=== PATIENT | male | born 1975 | race Caucasian/White ===

== ENCOUNTER → 2016-03-28 | Outpatient (CLI) | payer OTHER ==
[~2016-03-28] MED LIST: AMLO10TA2 PO; APR50 PO; ASPI81TA28 PO; ATOR10TA88 PO; CANA1TAB PO; CARV25TA2 PO; CHOL100010 PO; CHOL2000 PO; CLC/300 PO; DULA0.5I INJ; FRS/40 PO; GABA1CAP5 PO; GLC/500 PO; INSPMPHMLG SQ; INSU50IN3 SQ; LOSA100T26 PO; LOSA100T65 PO; LOSA50TA55 PO; RXC5 PO; SPIR1TAB72 PO
[2016-03-28 12:55] LABS: BLOOD UREA NITROGEN 16 mg/dl (7-18); BUN/CREATININE RATIO 22.7 (10-20); CARBON DIOXIDE 24 mmol/L (21-32); CHLORIDE 107 mmol/L (98-107); CREATININE 0.71 mg/dl (0.60-1.40); GLUCOSE 58 mg/dl (70-99); GLUCOSE,FASTING 58 mg/dl (70-99); PHOSPHORUS 2.9 mg/dl (2.5-4.9); POTASSIUM 4.2 mmol/L (3.5-5.1); SODIUM 141 mmol/L (136-145)
[2016-03-28 13:36] LABS: RATIO 22.1 mcg/mg (0-30.0)
== END | disposition home or self-care (01) ==
LOC: C.LABBFT 08:15
PROVIDERS: ATTEND Internal Medicine Endocrinology, Diabetes & Metabolism
DX: I10 Essential (primary) hypertension (principal); E11.9 Type 2 diabetes mellitus without complications; E55.9 Vitamin D deficiency, unspecified

== ENCOUNTER → 2016-04-06 | Outpatient (CLI) | payer OTHER ==
[~2016-04-06] VITALS: Ht 170.2 cm; Wt 172.5 kg
[2016-04-06 14:13] VITALS: BP 125/85; PULSE 102; Ht 170.2 cm; Wt 172.5 kg
== END | disposition home or self-care (01) ==
LOC: C.NEUR 14:11
PROVIDERS: ATTEND Internal Medicine Pulmonary Disease
DX: G47.33 Obstructive sleep apnea (adult) (pediatric) (principal)

== ENCOUNTER → 2016-05-25 | Outpatient (CLI) | payer OTHER ==
[~2016-05-25] MED LIST changes: +AMLO-114 PO; +ATOR-22 PO; +ATOR10TA82 PO; -ATOR10TA88 PO; +AZITTAB PO; +CYM/30 PO; +DULA0.5I SC; +ECON118C TOP; +ERGO500037 PO; +FLX10 PO; +HYDR100T12 PO; +HYDR100T3 PO; +INSU50IN SC; +LABE100T23 PO; -LOSA100T26 PO; +LOSA100T33 PO; +LOSA50TA36 PO; -LOSA50TA55 PO; +LPT/20 PO; +MELO15TA10 PO; +MELO15TA4 PO; +NYST80OI TOP; +OXYC1TAB3 PO; +PRED20TA PO; +ULT50 PO
[2016-05-25 17:57] LABS: URINE APPEARANCE CLEAR (CLEAR); URINE BILIRUBIN NEG (NEG); URINE COLOR YELLOW; URINE EPITHELIAL CELL AUTO >30 /lpf (0-5); URINE NITRITE NEG (NEG); URINE SPECIFIC GRAVITY 1.014 (1.000-1.030); UROBILINOGEN NEG (NEG)
[2016-05-25 18:20] LABS: BLOOD UREA NITROGEN 13 mg/dl (7-18); BUN/CREATININE RATIO 14.3 (10-20); CALCIUM 8.9 mg/dl (8.5-10.1); CARBON DIOXIDE 30 mmol/L (21-32); CHLORIDE 102 mmol/L (98-107); CREATININE 0.89 mg/dl (0.60-1.40); GLUCOSE 148 mg/dl (70-99); SODIUM 139 mmol/L (136-145)
[2016-05-25 18:23] LABS: MANUAL MICROSCOPIC REQUIRED? NO; REVIEW REQ? NO
== END | disposition home or self-care (01) ==
LOC: C.LABBFT 15:42
PROVIDERS: ATTEND Physician Assistant Medical
DX: R32 Unspecified urinary incontinence (principal); E11.9 Type 2 diabetes mellitus without complications

== ENCOUNTER → 2016-05-26 | Outpatient (CLI) | payer OTHER ==
[~2016-05-26] MED LIST changes: +GADAVIST IV PRN
--- NOTE | 2016-05-26 11:21 | DIAGNOSTIC IMAGING REPORT ---
BRAIN COMBO FOR ORBITS CLINICAL HISTORY: Right sided vision loss. COMPARISON STUDY: Head CT April 09, 2015 and MRI of the brain April 15, 2015. TECHNIQUE: Utilizing 1.5 Sruthi magnet and dedicated coil, multiplanar, multi echo imaging of the brain was performed pre and postcontrast ministration with thin cut imaging through the orbits. Injection of 16 cc of Gadavist IV was uneventful. FINDINGS: The exam is moderately compromised by motion artifact. There are no areas restricted diffusion. No acute intracranial hemorrhage, midline shift or mass effect is present. Brain volume is normal. Minimal cerebellar tonsillar ectopia is unchanged. A few small foci of white matter T2 hyperintensity are unchanged since MRI of May 25, 2014. There is no intracranial mass or pathologic in enhancement. The globes are intact. There is no orbital mass. Extraocular muscles are unremarkable. Evaluation of the optic nerves is suboptimal on this exam due to motion artifact. Several signal is maintained. There is a left maxillary sinus mucous retention cyst. IMPRESSION: 1. No acute intracranial findings. 2. No orbital abnormality identified although the optic nerves are suboptimally assessed due to to motion artifact. 3. No change in a few small white matter T2 hyperintense foci since MRI of May 25, 2014. These likely reflect the sequela of migraine headaches or minimal small vessel disease. The appearance is not strongly suggestive of demyelinating disease. Electronically signed by: Eyad Rosario M.D. 05/26/2016 11:19 AM Dictated Date/Time: 05/26/2016 11:12 AM
== END | disposition home or self-care (01) ==
LOC: C.MRI 09:30
PROVIDERS: ATTEND Internal Medicine
DX: H54.7 Unspecified visual loss (principal)

== ENCOUNTER 2016-07-04 22:50 | Emergency (ER) | payer OTHER ==
[~2016-07-04] VITALS: Ht 170.2 cm; Wt 163.2 kg
[~2016-07-04 22:50] MED LIST changes: -AMLO-114 PO; -ATOR-22 PO; -ATOR10TA82 PO; -AZITTAB PO; -CANA1TAB PO; -CHOL2000 PO; -CYM/30 PO; -DULA0.5I INJ; -DULA0.5I SC; -ECON118C TOP; -ERGO500037 PO; -FLX10 PO; -HYDR100T12 PO; -HYDR100T3 PO; -INSU50IN SC; -LABE100T23 PO; -LOSA100T33 PO; -LOSA100T65 PO; -LPT/20 PO; -MELO15TA10 PO; -MELO15TA4 PO; -NYST80OI TOP; -OXYC1TAB3 PO; -PRED20TA PO; -SPIR1TAB72 PO; -ULT50 PO
[2016-07-04 22:59] VITALS: TEMP 37.1; Ht 170.2 cm; Wt 163.2 kg
[2016-07-04] MEDS ORDERED: OXYCODONE IR HOME PACK PO ONE (23:30)
[2016-07-04] MEDS ORDERED: CHOL2000 PO (23:56)
[2016-07-05] MEDS ORDERED: CANA1TAB PO (00:02)
[2016-07-05] MEDS ORDERED: LOSA100T65 PO (00:02)
[2016-07-05] MEDS ORDERED: DULA0.5I INJ (00:04)
[2016-07-05] MEDS ORDERED: SPIR1TAB72 PO (00:06)
[2016-07-05] MEDS ORDERED: ATOR10TA82 PO (00:06)
[2016-07-05] MEDS ORDERED: LOSA100T33 PO (00:07)
[2016-07-05 00:37] VITALS: BP 129/71; PULSE 88; O2SAT 96
--- NOTE | 2016-07-05 03:55 | EMERGENCY ROOM VISIT NOTE ---
ED Visit Note First contact with patient: 23:15 CHIEF COMPLAINT: Toothache HISTORY OF PRESENT ILLNESS: This 40-year-old male patient presented to the emergency department with a progressive toothache for past few hours. The patient had several teeth removed by a dentist in [place] last week. The patient states that he was on antibiotics but completed the medication. He took his last oxycodone this evening, and now presents for left-sided mouth pain. The patient has a dentist follow-up appointment scheduled in 2 days. They rate their pain a 8/10 and the ibuprofen and Tylenol they have been taking has not relieved the pain. Denies facial swelling or fever. The patient denies any discharge from the mouth. REVIEW OF SYSTEMS: A 6 system review of systems was completed with positives and pertinent negatives listed in the HPI. ALLERGIES: See EMR MEDICATIONS: See EMR PMH: See EMR SOCIAL HISTORY: Lives locally PHYSICAL EXAM: Vitals are noted on the nurse's note and reviewed by myself. Vital signs stable. GENERAL: White male, in no acute distress, nondiaphoretic, well-developed well- nourished. Mouth: The left upper gumline is tender, without any discharge or signs of an abscess. Several teeth appear to have recently been removed. The remainder of the pharynx and tonsils are without erythema, edema, or exudate. The airway is patent. There is no facial swelling, cervical or submandibular lymphadenopathy. The patient appears uncomfortable and in pain. The patient has overall poor dental hygiene. EARS: External auditory canals clear, tympanic membranes pearly blake without erythema or effusion bilaterally. HEART: Regular rate and rhythm without murmur gallop or rub LUNG: Clear to auscultation bilateral ED COURSE: Physical exam and history were performed. Nursing notes and EMR were reviewed. The patient appears to have had several teeth removed and is now having pain. He states that he is out of his antibiotics, however he did bring his pill bottles with him and he has 4 days of clindamycin pills remaining. I'm unsure if the patient is taking his medication as prescribed, but he was instructed to continue taking this. The patient is not regularly seen for these complaints. I do not appreciate abscess or impending airway compromise. The patient will be given a home pack of OxyIR with instructions to keep his appointment in 2 days for his follow-up. The patient was otherwise invited back to the ER with any new, worsening, or concerning symptoms. 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 (2) ANXIETY STATE NOS Status: Chronic (3) Benign hypertension Status: Chronic (4) DEPRESSIVE DISORDER NEC Status: Chronic (5) Diabetes mellitus type 2 Status: Chronic (6) MRSA Status: Resolved (7) TOBACCO USE DISORDER Status: Chronic (8) uvulectomy Status: Resolved Current/Historical Medications Scheduled Amlodipine Besylate (Norvasc), 10 MG PO DAILY Aspirin (Aspirin Ec), 81 MG PO DAILY Atorvastatin (Lipitor), 10 MG PO DAILY Canagliflozin (Invokana), 100 MG PO DAILY Carvedilol (Coreg), 25 MG PO BID Cholecalciferol (Vitamin D3), 4,000 UNIT PO DAILY Clindamycin HCl (Clindamycin HCl), 300 MG PO Q6 Dulaglutide (Trulicity), 1 DOSE INJ WK Furosemide (Lasix), 40 MG PO DAILY Gabapentin (Neurontin), 400 MG PO TID Hctz/Spironolactone (Spironolactone/Hydrochlor 25-25 mg), 1 TAB PO BID Insulin Lispro Protamine & Lis (Humalog Mix 50/50 Kwikpen), 110 UNITS SQ BID Losartan Potassium (Cozaar), 100 MG PO DAILY Losartan Potassium & Hydrochlo (Losartan Potassium/Hydroc), 1 TAB PO BID Metformin Hcl (Glucophage), 1,000 MG PO BIDM Scheduled PRN Oxycodone HCl (Oxycodone HCl), 5 MG PO Q4H PRN for Pain Allergies Coded Allergies: Ceftriaxone (Verified Allergy, Severe, SHORTNESS OF BREATH, 07/04/16) Lidocaine (Verified Allergy, Severe, SHORTNESS OF BREATH, diaphoretic, hives, 07/04/16) pt unable to give further information on when reaction occured Procaine (Verified Allergy, Severe, SHORTNESS OF BREATH, diaphoretic, hives, 07/04/16) pt unable to give further information on when reaction occured Lisinopril (Verified Allergy, Intermediate, HIVES, 07/04/16) Albuterol (Verified Allergy, Mild, proair "trouble taking breaths", ) Amoxicillin (Unverified Allergy, Unknown, ., 07/04/16) Clavulanic Acid (Unverified Allergy, Unknown, ., 07/04/16) Acetaminophen (Verified Adverse Reaction, Unknown, NAUSEA, 07/04/16) Vital Signs Date Time Temp Pulse Resp B/P Pulse Ox O2 Delivery O2 Flow Rate FiO2 07/05/16 00:37 88 18 129/71 96 07/04/16 22:59 37.1 107 18 126/85 94 Room Air Medications Administered Medications (Trade) Dose Ordered Sig/Faby Route Start Time Stop Time Status Last Admin Dose Admin Oxycodone HCl (Roxicodone Immediate Rel 5MG Home Pack) 1 homepack UD ONCE PO 07/04/16 23:30 07/04/16 23:31 DC 07/05/16 00:33 1 HOMEPACK Departure Information Impression Primary Impression: Pain, dental Dispostion Home / Self-Care Condition GOOD Forms HOME CARE DOCUMENTATION FORM, IMPORTANT VISIT INFORMATION Patient Instructions My [facility] Additional Instructions You were seen and evaluated today on an emergency basis only. This is not a substitute for, or an effort to provide, complete comprehensive medical care. It is not possible to recognize and treat all injuries or illnesses in a single emergency department visit. For this reason it is recommended that you followup with your dentist as scheduled on Sunday for ongoing care and evaluation. Continue clindamycin as previously instructed. Oxycodone (OxyIR) 5mg (homepack): Take ONE pill every SIX hours for breakthrough pain. Avoid alcohol, operating machinery or dangerous equipment, working on ladders or roofs, DRIVING, or situations where being under the influence may be dangerous. It is recommended to use an [id number] stool softener such as Colace, 100mg twice daily while taking this medication to avoid constipation. You are welcome to return to the emergency department anytime with new, worsening, or concerning symptoms.
== END 2016-07-05 00:37 | disposition home or self-care (01) ==
LOC: EDBD 22:50 → C.EDB 22:51
DX: K08.89 Other specified disorders of teeth and supporting structures (principal); F41.9 Anxiety disorder, unspecified; F43.21 Adjustment disorder with depressed mood; I10 Essential (primary) hypertension; E11.9 Type 2 diabetes mellitus without complications; Z72.0 Tobacco use; Z79.82 Long term (current) use of aspirin; Z79.899 Other long term (current) drug therapy

== ENCOUNTER → 2016-07-04 | Outpatient (CLI) | payer OTHER ==
[~2016-07-04] MED LIST changes: -GADAVIST IV PRN
[2016-07-04 17:28] LABS: BLOOD UREA NITROGEN 16 mg/dl (7-18); BUN/CREATININE RATIO 13.7 (10-20); CALCIUM 8.9 mg/dl (8.5-10.1); CARBON DIOXIDE 28 mmol/L (21-32); CHLORIDE 102 mmol/L (98-107); GLUCOSE 93 mg/dl (70-99); MAGNESIUM 2.1 mg/dl (1.8-2.4); POTASSIUM 3.6 mmol/L (3.5-5.1); SODIUM 139 mmol/L (136-145)
[2016-07-04 17:29] LABS: PHOSPHORUS 3.4 mg/dl (2.5-4.9)
[2016-07-05 06:21] LABS: ESTIMATED AVERAGE GLUCOSE 169 mg/dl; HA1C FLAG Normal (Normal)
== END | disposition home or self-care (01) ==
LOC: C.LAB1850 15:28
PROVIDERS: ATTEND Internal Medicine Nephrology
DX: I10 Essential (primary) hypertension (principal); E11.9 Type 2 diabetes mellitus without complications; E55.9 Vitamin D deficiency, unspecified

== ENCOUNTER 2016-07-16 18:11 | Emergency (ER) | payer OTHER ==
[~2016-07-16 18:11] MED LIST changes: -APR50 PO; +ATOR10TA82 PO; +CANA1TAB PO; -CHOL100010 PO; +CHOL2000 PO; +DULA0.5I INJ; -INSPMPHMLG SQ; +LOSA100T33 PO; +LOSA100T65 PO; -LOSA50TA36 PO; +SPIR1TAB72 PO
[2016-07-16 18:17] VITALS: Ht 170.2 cm
[2016-07-16] MEDS ORDERED: SODIUM CHLORIDE 0.9% 1000ML 500 ML IV STA (18:25)
[2016-07-16 18:42] VITALS: O2SAT 96
[2016-07-16 18:59] LABS: HEMATOCRIT 36.3 % (42-52); MEAN CELL VOLUME 86.6 fL (80-100); MEAN CORPUSCULAR HEMOGLOBIN 29.4 pg (25-34); MEAN CORPUSCULAR HGB CONC 33.9 g/dl (32-36); MEAN PLATELET VOLUME 9.5 fL (7.4-10.4); PLATELET COUNT 190 K/uL (130-400); RED BLOOD COUNT 4.19 M/uL (4.7-6.1); WHITE BLOOD COUNT 8.65 K/uL (4.8-10.8)
--- NOTE | 2016-07-16 19:13 | EMERGENCY ROOM VISIT NOTE ---
History Report prepared by Carisa: Alisha Daugherty Under the Supervision of: Dr. Abhilash Fuentes M.D. 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 The patient states that his chest pain goes across his mid chest and currently rates the pain as a 9/10 in severity. The patient states that his pain is worsening when he experiences shortness of breath. The patient states that today he was also having worsening shortness of breath and was lightheaded which was worsened with exertion. The patient states that today he was lying down in bed on his BiPAP machine and states he was still having shortness of breath and was unable to get comfortable. He states that due to his symptoms he has been unable to sleep well over the last few nights. The patient states that he had dental surgery on June 29 where 7 teeth were extracted and states he is still taking antibiotics and ibuprofen 800 mg. The patient denies any falling or twisting recently. He states he has no history of blood clots in lungs or extremities or history of a heart attack. The patient states that he is experiencing a "smell like sewage in the mouth" and sinus drainage which is causing him to feel ill. The patient states that he currently takes aspirin but denies taking any other blood thinners. 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 Review of Systems See HPI for pertinent positives & negatives. A total of 10 systems reviewed and were otherwise negative. Past Medical & Surgical Medical Problems: (1) accelerted HTN, obesity, DM (2) ADJUSTMENT DISORDER WITH DEPRESSED MOOD (3) ANXIETY STATE NOS (4) Benign hypertension (5) DEPRESSIVE DISORDER NEC (6) Diabetes mellitus type 2 (7) Diabetic peripheral neuropathy associated with type 2 diabetes mellitus (8) Loss of sensation (9) Morbid obesity with body mass index of 50.0-59.9 in adult (10) MRSA (11) Resistant hypertension (12) TOBACCO USE DISORDER (13) uvulectomy Social History Problems: (1) Learning disability Family History Diabetes mellitus FHx: asthma Social History Smoking Status: Former Smoker Alcohol Use: none Drug Use: none Marital Status: Housing Status: lives with family Occupation Status: disabled Current/Historical Medications Scheduled Amlodipine Besylate (Norvasc), 10 MG PO DAILY Aspirin (Aspirin Ec), 81 MG PO DAILY Atorvastatin (Lipitor), 10 MG PO DAILY Canagliflozin (Invokana), 100 MG PO DAILY Carvedilol (Coreg), 25 MG PO BID Cholecalciferol (Vitamin D3), 4,000 UNIT PO DAILY Dulaglutide (Trulicity), 1 DOSE INJ WK Furosemide (Lasix), 40 MG PO DAILY Gabapentin (Neurontin), 400 MG PO TID Hctz/Spironolactone (Spironolactone/Hydrochlor 25-25 mg), 1 TAB PO BID Insulin Lispro Protamine & Lis (Humalog Mix 50/50 Kwikpen), 110 UNITS SQ BID Losartan Potassium (Cozaar), 100 MG PO DAILY Losartan Potassium & Hydrochlo (Losartan Potassium/Hydroc), 1 TAB PO BID Metformin Hcl (Glucophage), 1,000 MG PO BIDM Scheduled PRN Oxycodone HCl (Oxycodone HCl), 5 MG PO Q4H PRN for Pain Allergies Coded Allergies: Ceftriaxone (Verified Allergy, Severe, SHORTNESS OF BREATH, 07/04/16) Lidocaine (Verified Allergy, Severe, SHORTNESS OF BREATH, diaphoretic, hives, 07/04/16) pt unable to give further information on when reaction occured Procaine (Verified Allergy, Severe, SHORTNESS OF BREATH, diaphoretic, hives, 07/04/16) pt unable to give further information on when reaction occured Lisinopril (Verified Allergy, Intermediate, HIVES, 07/04/16) Albuterol (Verified Allergy, Mild, proair "trouble taking breaths", ) Amoxicillin (Unverified Allergy, Unknown, ., 07/04/16) Clavulanic Acid (Unverified Allergy, Unknown, ., 07/04/16) Acetaminophen (Verified Adverse Reaction, Unknown, NAUSEA, 07/04/16) Physical Exam Vital Signs Date Time Temp Pulse Resp B/P (MAP) Pulse Ox O2 Delivery O2 Flow Rate FiO2 07/16/16 20:05 36.4 72 24 147/103 95 07/16/16 19:36 72 24 147/103 95 Room Air 07/16/16 19:09 72 07/16/16 18:47 95 Room Air 07/16/16 18:42 96 Room Air 07/16/16 18:17 36.4 84 24 166/97 97 Room Air Physical Exam GENERAL: Patient is in no acute distress. HEENT: No acute trauma, normocephalic atraumatic, dental surgical areas have healed well with no acute signs of infection. Mucous membranes moist, no nasal congestion, no scleral icterus. NECK: No stridor, no adenopathy, no meningismus, trachea is midline. LUNGS: Clear to auscultation bilaterally, no wheeze, no rhonchi, breath sounds equal. HEART: Without murmurs gallops or rubs, regular rate and rhythm. CHEST: Tender to the bilateral anterior lower chest wall, no rash. ABDOMEN: Soft, nontender, bowel sounds positive, no hernias, no peritonitis. EXTREMITIES: No cyanosis. Mild bilateral pedal edema, full range of motion of all the joints without pain or difficulty, no signs for acute trauma. NEUROLOGIC: Oriented x 3, no acute motor or sensory deficits, no focal weakness. SKIN: No rash, no jaundice, no diaphoresis. Medical Decision & Procedures ER Provider Diagnostic Interpretation: X-ray results as stated below per interpretation by me and the radiologist: CHEST 2 VIEWS ROUTINE HISTORY: Atypical CHEST PAIN COMPARISON: Chest 01/18/2016. FINDINGS: The heart remains mildly enlarged. The lungs are clear. No pleural effusions. No pneumothorax. IMPRESSION: Stable mild cardiomegaly. Electronically signed by: Andrea Bear M.D. 07/16/2016 7:28 PM Dictated Date/Time: 07/16/2016 7:27 PM Laboratory Results 07/16/16 18:45 07/16/16 18:45 Test 07/16/16 18:45 Red Blood Count 4.19 M/uL (4.7-6.1) Mean Corpuscular Volume 86.6 fL (80-100) Mean Corpuscular Hemoglobin 29.4 pg (25-34) Mean Corpuscular Hemoglobin Concent 33.9 g/dl (32-36) RDW Standard Deviation 43.4 fL (36.4-46.3) RDW Coefficient of Variation 13.7 % (11.5-14.5) Mean Platelet Volume 9.5 fL (7.4-10.4) Anion Gap 7.0 mmol/L (3-11) Estimated GFR () 124.3 Estimated GFR (Non- 107.2 BUN/Creatinine Ratio 9.8 (10-20) Calcium Level 7.7 mg/dl (8.5-10.1) Magnesium Level 2.1 mg/dl (1.8-2.4) Total Bilirubin 0.3 mg/dl (0.2-1) Aspartate Amino Transf (AST/SGOT) 18 U/L (15-37) Alanine Aminotransferase (ALT/SGPT) 31 U/L (12-78) Alkaline Phosphatase 79 U/L (45-117) Troponin I < 0.015 ng/ml (0-0.045) Total Protein 6.8 gm/dl (6.4-8.2) Albumin 3.1 gm/dl (3.4-5.0) Globulin 3.7 gm/dl (2.5-4.0) Albumin/Globulin Ratio 0.8 (0.9-2) Lipase 184 U/L (73-393) Thyroid Stimulating Hormone (TSH) 1.350 uIu/ml (0.300-4.500) Laboratory results reviewed by me. Medications Administered Medications (Trade) Dose Ordered Sig/Faby Route Start Time Stop Time Status Last Admin Dose Admin Sodium Chloride 500 ml @ 999 mls/hr Q31M STAT IV 07/16/16 18:25 07/16/16 18:55 DC 07/16/16 18:53 999 MLS/HR ECG Indication: chest pain Rate (beats per minute): 74 Rhythm: normal sinus Findings: no acute ischemic change, no ectopy ED Course 1822: The patient was evaluated in room A12A. A complete history and physical exam was performed. 1824: Ordered Sodium Chloride 500 ml @ 999 mls/hr IV. 1956:I reevaluated the patient. Discussed results and discharge instructions: He verbalized understanding and agreement. The patient is ready for discharge. Medical Decision The patient is a 40 year old male who presents to the ED with complaints of chest pain. Differential diagnoses considered include musculoskeletal chest pain, cardiac ischemia, VA, pneumonia, pneumothorax, aortic dissection, viral illness, pancreatitis, and dental infection. There is no leukocytosis or concerning anemia. No significant electrolyte abnormality, kidney failure or hepatitis. The patient appears to be in a euthyroid state. Chest x-ray does not show pneumonia, mediastinal widening or pneumothorax. EKG shows a normal sinus rhythm, no acute ischemia. Cardiac enzyme testing times one is not consistent with acute cardiac injury. On exam, the patient was tender across the anterior chest wall. He was not febrile, he was not toxic in appearance. He was hypertensive. The patient presents with multiple complaints but primarily, he was focused on his anterior chest pain. This pain is reproducible and worse with movement and I suspect musculoskeletal. He can continue his medications as before. He was referred to his doctor's office for his elevated blood pressure. Heat to the chest wall was suggested. I did not think narcotic pain medication was in his best interest, I explained this to him. The patient was encouraged to return here for worsening symptoms. Medication Reconciliation: I attest that I have personally reviewed the patient' s current medication list. Blood Pressure Screening: Patient was found to have an elevated blood pressure and was referred to their primary doctor for recheck and further treatment. Impression Primary Impression: Anterior chest wall pain Scribe Attestation The scribe's documentation has been prepared under my direction and personally reviewed by me in its entirety. I confirm that the note above accurately reflects all work, treatment, procedures, and medical decision making performed by me. Departure Information Dispostion Home / Self-Care Referrals No Doctor, Assigned (PCP) Forms HOME CARE DOCUMENTATION FORM, IMPORTANT VISIT INFORMATION Patient Instructions My [facility] Additional Instructions heat to the chest wall will help rest all other meds the same return if worsening see your cain md this week for a recheck
[2016-07-16 19:15] LABS: ALT/SGPT 31 U/L (12-78); AST/SGOT 18 U/L (15-37); BLOOD UREA NITROGEN 9 mg/dl (7-18); BUN/CREATININE RATIO 9.8 (10-20); CALCIUM 7.7 mg/dl (8.5-10.1); CARBON DIOXIDE 28 mmol/L (21-32); CHLORIDE 108 mmol/L (98-107); GLUCOSE 173 mg/dl (70-99); MAGNESIUM 2.1 mg/dl (1.8-2.4); SODIUM 143 mmol/L (136-145)
[2016-07-16 19:26] LABS: ALB/GLOB RATIO 0.8 (0.9-2); ALKALINE PHOSPHATASE 79 U/L (45-117)
--- NOTE | 2016-07-16 19:29 | DIAGNOSTIC IMAGING REPORT ---
CHEST 2 VIEWS ROUTINE HISTORY: Atypical CHEST PAIN COMPARISON: Chest 01/18/2016. FINDINGS: The heart remains mildly enlarged. The lungs are clear. No pleural effusions. No pneumothorax. IMPRESSION: Stable mild cardiomegaly. Electronically signed by: Andrea Bear M.D. 07/16/2016 7:28 PM Dictated Date/Time: 07/16/2016 7:27 PM
[2016-07-16 20:05] VITALS: BP 147/103; PULSE 72; TEMP 36.4; O2SAT 95
== END 2016-07-16 20:05 | disposition home or self-care (01) ==
LOC: C.EDB 18:13 → C.EDA 20:05
DX: R07.89 Other chest pain (principal); R06.02 Shortness of breath; I51.7 Cardiomegaly; E11.40 Type 2 diabetes mellitus with diabetic neuropathy, unspecified; Z79.4 Long term (current) use of insulin; E66.01 Morbid (severe) obesity due to excess calories; Z68.43 Body mass index [BMI] 50.0-59.9, adult; Z87.891 Personal history of nicotine dependence; I10 Essential (primary) hypertension; Z79.899 Other long term (current) drug therapy; F81.9 Developmental disorder of scholastic skills, unspecified

== ENCOUNTER → 2016-08-22 | Outpatient (CLI) | payer OTHER ==
[~2016-08-22] MED LIST changes: -ATOR10TA82 PO; +ATOR10TA88 PO; -CLC/300 PO; +FLX10 PO; +LOSA100T26 PO; -LOSA100T33 PO
[2016-08-22 09:47] LABS: BASO % 0.1 %; BASO ABS # 0.01 K/uL (0-0.2); COMPLETE YES; EOS % 1.2 %; HEMATOCRIT 41.4 % (42-52); IG% 0.4 %; LYMPH % 28.3 %; LYMPH ABS # 2.57 K/uL (1.2-3.4); MEAN CELL VOLUME 86.6 fL (80-100); MEAN CORPUSCULAR HEMOGLOBIN 29.5 pg (25-34); MEAN CORPUSCULAR HGB CONC 34.1 g/dl (32-36); MEAN PLATELET VOLUME 10.5 fL (7.4-10.4); MONO % 5.9 %; NEUT % 64.1 %; PLATELET COUNT 183 K/uL (130-400); RED BLOOD COUNT 4.78 M/uL (4.7-6.1); WHITE BLOOD COUNT 9.08 K/uL (4.8-10.8)
[2016-08-22 10:28] LABS: ALB/GLOB RATIO 0.9 (0.9-2); ALKALINE PHOSPHATASE 89 U/L (45-117); ALT/SGPT 33 U/L (12-78); AST/SGOT 15 U/L (15-37); BLOOD UREA NITROGEN 17 mg/dl (7-18); BUN/CREATININE RATIO 17.8 (10-20); CALCIUM 8.6 mg/dl (8.5-10.1); CARBON DIOXIDE 28 mmol/L (21-32); CHLORIDE 103 mmol/L (98-107); CREATININE 0.93 mg/dl (0.60-1.40); GLUCOSE 183 mg/dl (70-99); HDL CHOLESTEROL 39 mg/dl; POTASSIUM 3.7 mmol/L (3.5-5.1); SODIUM 137 mmol/L (136-145)
[2016-08-22 10:29] LABS: CHOLESTEROL 138 mg/dl (0-200); CHOLESTEROL/HDL RATIO 3.5; LDL CHOLESTEROL CALCULATED 75 mg/dl; TRIGLYCERIDES 122 mg/dl (0-150); VERY LOW DENSITY LIPOPROT CALC 24 mg/dl
== END | disposition home or self-care (01) ==
LOC: C.LAB 07:58
PROVIDERS: ATTEND Internal Medicine
DX: E78.5 Hyperlipidemia, unspecified (principal); E11.9 Type 2 diabetes mellitus without complications

== ENCOUNTER → 2016-10-17 | Outpatient (CLI) | payer OTHER ==
[~2016-10-17] VITALS: Ht 170.2 cm; Wt 165.5 kg
[2016-10-17 12:51] VITALS: BP 124/78; PULSE 88; Ht 170.2 cm; Wt 165.5 kg
== END | disposition home or self-care (01) ==
LOC: C.NEUR 11:40
PROVIDERS: ATTEND Internal Medicine Pulmonary Disease
DX: G47.33 Obstructive sleep apnea (adult) (pediatric) (principal)

== ENCOUNTER 2016-11-18 10:20 | Emergency (ER) | payer OTHER ==
[~2016-11-18] VITALS: Ht 170.2 cm; Wt 160.8 kg
[~2016-11-18 10:20] MED LIST changes: -FLX10 PO
[2016-11-18 10:32] VITALS: TEMP 36.6; Ht 170.2 cm; Wt 160.8 kg
[2016-11-18] MEDS ORDERED: FLX10 PO (10:43)
--- NOTE | 2016-11-18 12:17 | DIAGNOSTIC IMAGING REPORT ---
L TIBIA/FIBULA 2 VIEWS ROUTINE HISTORY: 40 years-old Male pain acute right leg pain COMPARISON: None available TECHNIQUE: 2 views of the right tibia and fibula FINDINGS: There is soft tissue prominence of the pretibial tissues without opaque foreign body. No acute fracture, dislocation or significant degenerative changes. Mild degenerative changes are noted about the knee. IMPRESSION: No acute osseous abnormality. The above report was generated using voice recognition software. It may contain grammatical, syntax or spelling errors. Electronically signed by: Petr Irby M.D. 11/18/2016 12:15 PM Dictated Date/Time: 11/18/2016 12:14 PM
--- NOTE | 2016-11-18 13:03 | DIAGNOSTIC IMAGING REPORT ---
LEFT LOWER EXTREMITY VENOUS DOPPLER HISTORY: Acute left lower extremity pain and swelling R/O DVT left calf COMPARISON STUDY: None available. FINDINGS: There is normal compressibility, flow, and augmentation within the left lower extremity deep venous system. Study is mildly limited secondary to patient body habitus. IMPRESSION: No sonographic evidence of deep venous thrombosis within the left lower extremity. Electronically signed by: Petr Irby M.D. 11/18/2016 1:02 PM Dictated Date/Time: 11/18/2016 1:00 PM
--- NOTE | 2016-11-18 13:23 | EMERGENCY ROOM VISIT NOTE ---
History Report prepared by Carisa: Samir Calix Under the Supervision of: Dr. Ronald Mendieta M.D. First contact with patient: 11:12 Chief Complaint: LEG PAIN,LEG INJURY Stated Complaint: L LEG PAIN, HAD CAST ON, NEEDS A NEW ONE History of Present Illness The patient is a 40 year old male who presents to the Emergency Room after removing a left foot cast yesterday. He states that he has been wearing a cast on his left foot ever since he fell down six steps and injured it. He states that the injury occurred about a month ago. The patient states that he removed his cast because his leg was itching and his toes hurt. He states that he has been using crutches to ambulate, because his insurance won't cover a scooter or other forms of transportation. He states that his current pain travels from his left ankle up to his left hensley. The patient is worried that his injury may have worsened from the cast, or from walking on the foot. Source of History: patient Onset: Yesterday Position: foot (left) Quality: other (removal of cast) Note: Additional symptoms: left foot pain beginning at the ankle and moving up to the hensley. Review of Systems All systems have been listed, reviewed, and are negative other than those previously mentioned. Please see Additional Medical History Sheet. Past Medical & Surgical Medical Problems: (1) accelerted HTN, obesity, DM (2) ADJUSTMENT DISORDER WITH DEPRESSED MOOD (3) ANXIETY STATE NOS (4) Benign hypertension (5) DEPRESSIVE DISORDER NEC (6) Diabetes mellitus type 2 (7) Diabetic peripheral neuropathy associated with type 2 diabetes mellitus (8) Loss of sensation (9) Morbid obesity with body mass index of 50.0-59.9 in adult (10) MRSA (11) Resistant hypertension (12) TOBACCO USE DISORDER (13) uvulectomy Social History Problems: (1) Learning disability Family History Diabetes mellitus FHx: asthma Social History Smoking Status: Former Smoker Alcohol Use: none Drug Use: none Marital Status: Housing Status: lives with family Occupation Status: disabled Current/Historical Medications Scheduled Amlodipine Besylate (Norvasc), 10 MG PO DAILY Aspirin (Aspirin Ec), 81 MG PO DAILY Atorvastatin (Lipitor), 10 MG PO DAILY Canagliflozin (Invokana), 100 MG PO DAILY Carvedilol (Coreg), 25 MG PO BID Cholecalciferol (Vitamin D3), 4,000 UNIT PO DAILY Cyclobenzaprine HCl (Cyclobenzaprine HCl), 10 MG PO HS Dulaglutide (Trulicity), 1 DOSE INJ WK Furosemide (Lasix), 40 MG PO DAILY Gabapentin (Neurontin), 400 MG PO TID Hctz/Losartan (Hyzaar 12.5MG/100MG), 1 TAB PO BID Hctz/Spironolactone (Spironolactone/Hydrochlor 25-25 mg), 1 TAB PO BID Insulin Lispro Protamine & Lis (Humalog Mix 50/50 Kwikpen), 110 UNITS SQ BID Losartan Potassium (Cozaar), 100 MG PO DAILY Metformin Hcl (Glucophage), 1,000 MG PO BIDM Allergies Coded Allergies: Ceftriaxone (Verified Allergy, Severe, SHORTNESS OF BREATH, 11/18/16) Lidocaine (Verified Allergy, Severe, SHORTNESS OF BREATH, diaphoretic, hives, 11/18/16) pt unable to give further information on when reaction occured Procaine (Verified Allergy, Severe, SHORTNESS OF BREATH, diaphoretic, hives, 11/18/16) pt unable to give further information on when reaction occured Lisinopril (Verified Allergy, Intermediate, HIVES, 11/18/16) Albuterol (Verified Allergy, Mild, proair "trouble taking breaths", ) Amoxicillin (Unverified Allergy, Unknown, ., 11/18/16) Clavulanic Acid (Unverified Allergy, Unknown, ., 11/18/16) Acetaminophen (Verified Adverse Reaction, Unknown, NAUSEA, 11/18/16) Physical Exam Vital Signs Date Time Temp Pulse Resp B/P (MAP) Pulse Ox O2 Delivery O2 Flow Rate FiO2 11/18/16 13:45 90 18 169/116 98 11/18/16 12:13 86 18 188/112 96 Room Air 11/18/16 10:32 36.6 101 22 195/127 95 Room Air Physical Exam GENERAL: Patient awake, alert, oriented x 3. Patient follows commands. Patient does not appear toxic. Patient is adequately hydrated and well- nourished. SKIN: No erythema, pallor, cyanosis or rash. Scabs on both arms from previous infections. HEENT: Normal head, pupils equal, reactive to light and accommodation. Ears normal. Oral cavity and posterior pharynx appear normal. Neck: Without adenopathy, no neck vein distention. LUNGS: Clear to auscultation. No wheezes, no rales, no rhonchi. HEART: No murmurs. No gallops. No rubs ABDOMEN: Morbidly obese. No masses, no rebound, no hepatomegaly or splenomegaly. EXTREMITIES: No signs of trauma. No pedal or pretibial edema. Slight tenderness to the left calf. No obvious deformity. Motor, and sensory intact. NEUROLOGIC: Cranial nerves II-XII within normal limits. No gross motor sensory function deficits. Medical Decision & Procedures ER Provider Diagnostic Interpretation: Radiology results as stated below per my review and radiologist interpretation: LEFT LOWER EXTREMITY VENOUS DOPPLER FINDINGS: There is normal compressibility, flow, and augmentation within the left lower extremity deep venous system. Study is mildly limited secondary to patient body habitus. IMPRESSION: No sonographic evidence of deep venous thrombosis within the left lower extremity. Electronically signed by: Petr Irby M.D. 11/18/2016 1:02 PM L TIBIA/FIBULA 2 VIEWS ROUTINE FINDINGS: There is soft tissue prominence of the pretibial tissues without opaque foreign body. No acute fracture, dislocation or significant degenerative changes. Mild degenerative changes are noted about the knee. IMPRESSION: No acute osseous abnormality. The above report was generated using voice recognition software. It may contain grammatical, syntax or spelling errors. Electronically signed by: Petr Irby M.D. 11/18/2016 12:15 PM ED Course 1115: Past medical records reviewed. The patient was evaluated in room A4B. A complete history and physical examination was performed. 1315: Upon reevaluation, the patient appeared to have improvement of his symptoms. I discussed today's findings with him. He verbalized agreement of the treatment plan. The patient was discharged home. Medical Decision Nurses notes reviewed. Medical history sheet reviewed. Differential diagnosis includes but is not limited to: DVT, fracture/dislocation/subluxation, hypertension out of control and morbid obesity. Patient is under the care of a door closer mechanic for his leg pain. He is here now due to some pain in his calf and lower leg. He took the cast off himself. Both ultrasound and regular x-rays were obtained of the leg to rule out a clot or some other orthopedic problem. Those studies were evaluated both by myself and the radiologist. They are negative. I believe the patient can safely return home but he will need to follow-up with his door closer mechanic. I do not believe the patient requires a new cast at this time. Medication Reconcilliation Current Medication List: was personally reviewed by me Blood Pressure Screening Patient's blood pressure: Elevated blood pressure Blood pressure disposition: Referred to PCP Impression Primary Impression: Leg pain, left Scribe Attestation The scribe's documentation has been prepared under my direction and personally reviewed by me in its entirety. I confirm that the note above accurately reflects all work, treatment, procedures, and medical decision making performed by me. Departure Information Dispostion Home / Self-Care Referrals Bertrand Briceno M.D. (PCP) Patient Instructions My [facility] Additional Instructions Follow-up with your door closer mechanic as soon as possible. Follow-up with your family physician regarding your elevated blood pressure within the next week. Continue all of your current medications as prescribed.
[2016-11-18 13:45] VITALS: BP 169/116; PULSE 90; O2SAT 98
== END 2016-11-18 13:45 | disposition home or self-care (01) ==
LOC: C.EDB 10:23 → C.EDA 13:45
DX: M79.662 Pain in left lower leg (principal); M25.572 Pain in left ankle and joints of left foot; I10 Essential (primary) hypertension; F43.21 Adjustment disorder with depressed mood; F41.1 Generalized anxiety disorder; F32.9 Major depressive disorder, single episode, unspecified; E11.40 Type 2 diabetes mellitus with diabetic neuropathy, unspecified; E66.01 Morbid (severe) obesity due to excess calories; Z86.14 Personal history of Methicillin resistant Staphylococcus aureus infection; Z87.891 Personal history of nicotine dependence; Z79.82 Long term (current) use of aspirin; Z79.84 Long term (current) use of oral hypoglycemic drugs; Z79.4 Long term (current) use of insulin; Z82.5 Family history of asthma and other chronic lower respiratory diseases; Z83.3 Family history of diabetes mellitus

== ENCOUNTER → 2016-12-21 | Outpatient (CLI) | payer OTHER ==
[~2016-12-21] MED LIST changes: +ATOR10TA82 PO; -ATOR10TA88 PO; +AZITTAB PO; +FLX10 PO; +GADAVIST IV PRN; +HYDR100T3 PO; -LOSA100T26 PO; +LOSA100T33 PO; +LPT/20 PO; +MELO15TA4 PO; -RXC5 PO; +ULT50 PO
--- NOTE | 2016-12-21 16:45 | DIAGNOSTIC IMAGING REPORT ---
MRI OF THE LEFT ANKLE COMBO CLINICAL HISTORY: Left ankle pain. Fall several months ago. COMPARISON STUDY: Radiographs of the left tibia and fibula dated 11/18/2016. TECHNIQUE: MRI of the left ankle was performed utilizing various T1 and T2-weighted sequences in the axial, sagittal, and coronal planes. Contrast-enhanced sequences were acquired following the IV administration of 16.5 cc of Gadavist. FINDINGS: There is no MRI evidence of fracture in the ankle. The ankle mortise is intact. There is no joint effusion. Arthritic change with subchondral cyst formation and marrow edema is present on the base of the talus. The Achilles tendon is normal in morphology and signal intensity. The anterior, posterior, and peroneal tendons are intact. The visualized portions of the plantar fascia appear intact. There is mild thickening of the medial bundle of the plantar fascia at the calcaneal insertion with overlying soft tissue edema. The appearance is consistent with mild plantar fasciitis. There is maintenance of normal fat within the sinus tarsi. There is thickening and irregularity of the anterior tibiofibular ligament, likely related to remote injury. The anterior talofibular ligament is intact, as are the deltoid and spring ligaments. There is generalized atrophy of the regional musculature. No enhancing soft tissue lesion is suggested on the postcontrast images. IMPRESSION: 1. No fracture is seen. 2. Findings are consistent with mild plantar fasciitis, greatest involving medial bundle. 3. Arthritic change is present within the base of the talus with subchondral cyst formation and marrow edema. Dictated: 12/21/2016 4:29 PM Transcribed: 12/21/2016 4:44 PM Luli Electronically signed by: Abhilash Carpio M.D. 12/22/2016 7:58 AM Dictated Date/Time: 12/21/2016 4:29 PM
== END | disposition home or self-care (01) ==
LOC: C.MRI 14:55
PROVIDERS: ATTEND Podiatrist Foot & Ankle Surgery
DX: M25.572 Pain in left ankle and joints of left foot (principal); R93.7 Abnormal findings on diagnostic imaging of other parts of musculoskeletal system

== ENCOUNTER 2016-12-24 10:42 | Emergency (ER) | payer OTHER ==
[~2016-12-24] VITALS: Ht 170.2 cm; Wt 165.9 kg
[~2016-12-24 10:42] MED LIST changes: -AZITTAB PO; -GADAVIST IV PRN; -HYDR100T3 PO; -LPT/20 PO; -MELO15TA4 PO; -ULT50 PO
[2016-12-24 10:50] VITALS: Ht 170.2 cm; Wt 165.9 kg
[2016-12-24] MEDS ORDERED: LABETALOL HCL IV 5 MG/ML 20ML IV STA (10:54)
--- NOTE | 2016-12-24 11:03 | EMERGENCY ROOM VISIT NOTE ---
History Report prepared by Carisa: Gregoria Rodriguez Under the Supervision of: Dr. Lenny Moya M.D. First contact with patient: 10:50 Chief Complaint: CHEST PAIN Stated Complaint: SINUS/CHEST PAIN History of Present Illness The patient is a 41 year old male who presents to the Emergency Room with complaints of sinus congestion beginning last week. The patient states that he has chest pain from the sinus congestion dripping in the back of his throat. He also reports having back pain, but denies having abdominal pain. Source of History: patient Onset: last week Position: nose Quality: other (sinus congestion ) Associated Symptoms: + chest pain, No abdominal pain Review of Systems See HPI for pertinent positives & negatives. A total of 10 systems reviewed and were otherwise negative. Past Medical & Surgical Medical Problems: (1) accelerted HTN, obesity, DM (2) ADJUSTMENT DISORDER WITH DEPRESSED MOOD (3) ANXIETY STATE NOS (4) Benign hypertension (5) DEPRESSIVE DISORDER NEC (6) Diabetes mellitus type 2 (7) Diabetic peripheral neuropathy associated with type 2 diabetes mellitus (8) Loss of sensation (9) Morbid obesity with body mass index of 50.0-59.9 in adult (10) MRSA (11) Resistant hypertension (12) TOBACCO USE DISORDER (13) uvulectomy Social History Problems: (1) Learning disability Family History Diabetes mellitus FHx: asthma Social History Smoking Status: Former Smoker Alcohol Use: none Drug Use: none Marital Status: Housing Status: lives with family Occupation Status: disabled Current/Historical Medications Scheduled Amlodipine Besylate (Norvasc), 10 MG PO DAILY Aspirin (Aspirin Ec), 81 MG PO DAILY Atorvastatin (Atorvastatin Calcium), 1 TAB PO DAILY Azithromycin (Zithromax Z-Edward), 1 PKT PO UD Carvedilol (Coreg), 25 MG PO BID Cholecalciferol (Vitamin D3), 4,000 UNIT PO DAILY Cyclobenzaprine HCl (Cyclobenzaprine HCl), 10 MG PO HS Dulaglutide (Trulicity), 1 DOSE INJ WK Furosemide (Lasix), 40 MG PO DAILY Gabapentin (Neurontin), 400 MG PO TID Hctz/Spironolactone (Spironolactone/Hydrochlor 25-25 mg), 1 TAB PO BID Hydralazine HCl (Hydralazine HCl), 1 TAB PO TID Insulin Lispro Protamine & Lis (Humalog Mix 50/50 Kwikpen), 120 UNITS SQ BID Losartan Potassium (Cozaar), 100 MG PO DAILY Meloxicam (Meloxicam), 1 TAB PO DAILY Metformin Hcl (Glucophage), 1,000 MG PO BIDM Tramadol HCl (Tramadol HCl), 1 TAB PO BID Allergies Coded Allergies: Ceftriaxone (Verified Allergy, Severe, SHORTNESS OF BREATH, 12/24/16) Lidocaine (Verified Allergy, Severe, SHORTNESS OF BREATH, diaphoretic, hives, 12/24/16) pt unable to give further information on when reaction occured Procaine (Verified Allergy, Severe, SHORTNESS OF BREATH, diaphoretic, hives, 12/24/16) pt unable to give further information on when reaction occured Lisinopril (Verified Allergy, Intermediate, HIVES, 12/24/16) Albuterol (Verified Allergy, Mild, proair "trouble taking breaths", ) Amoxicillin (Unverified Allergy, Unknown, ., 12/24/16) Clavulanic Acid (Unverified Allergy, Unknown, ., 12/24/16) Acetaminophen (Verified Adverse Reaction, Unknown, NAUSEA, 12/24/16) Physical Exam Vital Signs Date Time Temp Pulse Resp B/P (MAP) Pulse Ox O2 Delivery O2 Flow Rate FiO2 12/24/16 12:50 36.6 79 12 157/110 95 12/24/16 12:31 157/110 12/24/16 12:27 79 12 95 12/24/16 12:01 155/110 12/24/16 11:57 77 13 176/113 96 12/24/16 11:28 80 15 172/94 95 Room Air 12/24/16 11:27 82 18 95 12/24/16 11:22 75 17 90 12/24/16 11:21 172/94 12/24/16 11:20 164/103 12/24/16 11:12 90 19 12/24/16 11:02 82 20 12/24/16 11:01 180/115 12/24/16 10:59 184/116 12/24/16 10:56 94 Room Air 12/24/16 10:55 96 12/24/16 10:53 190/120 12/24/16 10:50 36.6 85 20 190/120 96 Room Air Physical Exam GENERAL: Patient is well appearing and in no acute distress. HEENT: No acute trauma, normocephalic atraumatic, mucous membranes moist, tenderness to palpation bilateral maxillary sinuses, erythematous nasal turbinates, no scleral icterus. NECK: No stridor, no adenopathy, no meningismus, trachea is midline. LUNGS: No dyspnea. Clear to auscultation and equal bilaterally. No wheeze, no rhonchi. HEART: Regular rate and rhythm. No murmurs, rubs, gallops appreciated. ABDOMEN: Soft, nontender, bowel sounds positive, no masses appreciated, no peritonitis. BACK: No midline tenderness, no CVA tenderness EXTREMITIES: Normal motion all extremities, no cyanosis, no edema. NEUROLOGIC: Alert and oriented, no acute motor or sensory deficits, no focal weakness, cranial nerves grossly intact. SKIN: No rash, no jaundice, no diaphoresis. Pock gambino/abrasions various areas of abdomen. Medical Decision & Procedures ER Provider Diagnostic Interpretation: Radiology results and stated below per my review and radiologist interpretation: CHEST ONE VIEW PORTABLE HISTORY: 41 years-old Male Chest Pain acute atypical chest pain COMPARISON: Chest radiograph 07/16/2016 TECHNIQUE: Portable upright AP view of the chest FINDINGS: Cardiac silhouette is again mildly enlarged, unchanged. There is no pneumothorax, pleural effusion, focal airspace consolidation or overt pulmonary edema. Bones of the chest are grossly intact. IMPRESSION: No acute cardiopulmonary process. The above report was generated using voice recognition software. It may contain grammatical, syntax or spelling errors. Electronically signed by: Petr Irby M.D. 12/24/2016 11:10 AM Dictated Date/Time: 12/24/2016 11:09 AM Laboratory Results 12/24/16 10:56 Red Blood Count 5.13, Mean Corpuscular Volume 84.6, Mean Corpuscular Hemoglobin 29.0, Mean Corpuscular Hemoglobin Concent 34.3, Mean Platelet Volume 9.8, Neutrophils (%) (Auto) 69.5, Lymphocytes (%) (Auto) 20.7, Monocytes (%) (Auto) 8.0, Eosinophils (%) (Auto) 1.3, Basophils (%) (Auto) 0.2, Neutrophils # (Auto) 6.07, Lymphocytes # (Auto) 1.81, Monocytes # (Auto) 0.70, Eosinophils # (Auto) 0.11, Basophils # (Auto) 0.02 12/24/16 10:56 Test 12/24/16 10:56 White Blood Count 8.74 K/uL (4.8-10.8) Red Blood Count 5.13 M/uL (4.7-6.1) Hemoglobin 14.9 g/dL (14.0-18.0) Hematocrit 43.4 % (42-52) Mean Corpuscular Volume 84.6 fL (80-100) Mean Corpuscular Hemoglobin 29.0 pg (25-34) Mean Corpuscular Hemoglobin Concent 34.3 g/dl (32-36) Platelet Count 155 K/uL (130-400) Mean Platelet Volume 9.8 fL (7.4-10.4) Neutrophils (%) (Auto) 69.5 % Lymphocytes (%) (Auto) 20.7 % Monocytes (%) (Auto) 8.0 % Eosinophils (%) (Auto) 1.3 % Basophils (%) (Auto) 0.2 % Neutrophils # (Auto) 6.07 K/uL (1.4-6.5) Lymphocytes # (Auto) 1.81 K/uL (1.2-3.4) Monocytes # (Auto) 0.70 K/uL (0.11-0.59) Eosinophils # (Auto) 0.11 K/uL (0-0.5) Basophils # (Auto) 0.02 K/uL (0-0.2) RDW Standard Deviation 43.4 fL (36.4-46.3) RDW Coefficient of Variation 14.0 % (11.5-14.5) Immature Granulocyte % (Auto) 0.3 % Immature Granulocyte # (Auto) 0.03 K/uL (0.00-0.02) Anion Gap 7.0 mmol/L (3-11) Est Creatinine Clear Calc Drug Dose 184.1 ml/min Estimated GFR () 129.5 Estimated GFR (Non- 111.7 BUN/Creatinine Ratio 19.1 (10-20) Calcium Level 8.8 mg/dl (8.5-10.1) Troponin I < 0.015 ng/ml (0-0.045) Laboratory results as reviewed by me. Medications Administered Medications (Trade) Dose Ordered Sig/Faby Route Start Time Stop Time Status Last Admin Dose Admin Labetalol HCl (Normodyne IV) 10 mg NOW STAT IV 12/24/16 10:54 12/24/16 10:55 DC 12/24/16 11:10 10 MG Azithromycin (Zithromax Tab) 500 mg NOW STAT PO 12/24/16 12:14 12/24/16 12:15 DC 12/24/16 12:23 500 MG ECG Indication: chest pain Rate (beats per minute): 84 Rhythm: normal sinus Findings: no acute ischemic change, no ectopy Change: no significant change ED Course 1052: The patient was evaluated in room C4. A complete history and physical exam was performed. 1054: Ordered Labetalol HCl 10 mg IV. 1100:The patient admits that he did not take his medications today but states that he brought them to take. 1210: The patient states that he has felt weak for several weeks. I asked him if he wanted to be evaluated for admission but he said that he would like to go home. He is agreeable with the treatment for sinus infection. 1214: Ordered Azithromycin 500 mg PO. 1215: Reevaluated the patient. Discussed results and discharge instructions: He verbalized understanding and agreement. The patient is ready for discharge. Medical Decision Differential: Cardiac Ischemia (STEMI, NSTEMI, Unstable Angina, etc), Aortic Dissection, Arrhythmia, Pulmonary Embolism, Pneumonia, Pneumothorax, MSK, Infectious, Pericarditis/Myocarditis, Esophageal Rupture, Gastrointestinal, amongst other pathologies entertained. 41 yr old male who makes clear he has sinus congestion dropping in to back of his throat. He notes this makes him cough, have shortness of breath and chest discomfort. Admits ongoing for quite some time. Also admits he chronically has chest pains. He has no evidence of dissection, PE, arrythmia. With ongoing symptoms, normal EKG, and negative trop I do not feel this is acs. He has no hypoxia, is not dyspneic and has not calf TTP. Left ankle in brace but I do not feel he has PE at this time. Multiple evals and patient sleeping/no distress on all of them. Discussed admission for further work-up but he wishes to go home with an antibiotic. Seems reasonable starting zpack with his persistent URI symptoms though noted to him it still may just be viral. He requested albuterol HFA, then declined when it was pointed out to him that his history states he is allergic to it. I also pointed out he is having no wheezing currently. He is aware he can return at any time or if worsening of symptoms call 911. Medication Reconcilliation Current Medication List: was personally reviewed by me Blood Pressure Screening Patient's blood pressure: Elevated blood pressure Blood pressure disposition: Referred to PCP Impression Primary Impression: Nasal sinus congestion Additional Impression: Post-nasal drip Scribe Attestation The scribe's documentation has been prepared under my direction and personally reviewed by me in its entirety. I confirm that the note above accurately reflects all work, treatment, procedures, and medical decision making performed by me. Departure Information Dispostion Home / Self-Care Prescriptions Azithromycin (ZITHROMAX Z-EDWARD) 250 Mg Tab 1 PKT PO UD, #1 PKT Prov: Lenny Moya M.D. 12/24/16 Referrals Bertrand Briceno M.D. (PCP) Forms Call Back Authorization, HOME CARE DOCUMENTATION FORM, IMPORTANT VISIT INFORMATION Patient Instructions My [facility] Additional Instructions Keep well hydrated. Use a humidifier if possible. Return if chest pain, shortness of breath, passing out or other concerns. Please follow up with your primary provider in the next few days for recheck. You have been examined and treated today on an emergency basis only. This is not a substitute for, or an effort to provide, complete comprehensive medical care. It is impossible to recognize and treat all injuries or illnesses in a single emergency department visit. It is therefore important that you follow up closely with your Primary Physician. Call as soon as possible for an appointment so you can review all labs, imaging and other testing that you had. Return to Emergency Department, call 911 or seek immediate medical attention if you feel your symptoms are worsening. Problem Qualifiers
--- NOTE | 2016-12-24 11:11 | DIAGNOSTIC IMAGING REPORT ---
CHEST ONE VIEW PORTABLE HISTORY: 41 years-old Male Chest Pain acute atypical chest pain COMPARISON: Chest radiograph 07/16/2016 TECHNIQUE: Portable upright AP view of the chest FINDINGS: Cardiac silhouette is again mildly enlarged, unchanged. There is no pneumothorax, pleural effusion, focal airspace consolidation or overt pulmonary edema. Bones of the chest are grossly intact. IMPRESSION: No acute cardiopulmonary process. The above report was generated using voice recognition software. It may contain grammatical, syntax or spelling errors. Electronically signed by: Petr Irby M.D. 12/24/2016 11:10 AM Dictated Date/Time: 12/24/2016 11:09 AM
[2016-12-24 11:13] LABS: BASO % 0.2 %; BASO ABS # 0.02 K/uL (0-0.2); COMPLETE YES; EOS % 1.3 %; HEMATOCRIT 43.4 % (42-52); IG% 0.3 %; LYMPH % 20.7 %; LYMPH ABS # 1.81 K/uL (1.2-3.4); MEAN CELL VOLUME 84.6 fL (80-100); MEAN CORPUSCULAR HGB CONC 34.3 g/dl (32-36); MEAN PLATELET VOLUME 9.8 fL (7.4-10.4); NEUT % 69.5 %; PLATELET COUNT 155 K/uL (130-400); RED BLOOD COUNT 5.13 M/uL (4.7-6.1); WHITE BLOOD COUNT 8.74 K/uL (4.8-10.8)
[2016-12-24 11:29] LABS: BLOOD UREA NITROGEN 15 mg/dl (7-18); BUN/CREATININE RATIO 19.1 (10-20); CALCIUM 8.8 mg/dl (8.5-10.1); CARBON DIOXIDE 26 mmol/L (21-32); CHLORIDE 104 mmol/L (98-107); GLUCOSE 146 mg/dl (70-99); POTASSIUM 3.9 mmol/L (3.5-5.1); SODIUM 137 mmol/L (136-145)
[2016-12-24] MEDS ORDERED: HYDR100T3 PO (12:01)
[2016-12-24] MEDS ORDERED: LPT/20 PO (12:01)
[2016-12-24] MEDS ORDERED: AZITHROMYCIN 250 MG TAB PO STA (12:14)
[2016-12-24] MEDS ORDERED: AZITTAB PO (12:16)
[2016-12-24] MEDS ORDERED: ULT50 PO (12:29)
[2016-12-24] MEDS ORDERED: MELO15TA4 PO (12:29)
[2016-12-24 12:50] VITALS: BP 157/110; PULSE 79; TEMP 36.6; O2SAT 95
[2016-12-24] MEDS ORDERED: ALBUTEROL HFA 8 GM INHALER INH ONE (13:00)
== END 2016-12-24 12:52 | disposition home or self-care (01) ==
LOC: EDBD 10:42 → C.EDC 10:43
DX: R09.81 Nasal congestion (principal); R09.82 Postnasal drip; I10 Essential (primary) hypertension; E11.40 Type 2 diabetes mellitus with diabetic neuropathy, unspecified; Z86.14 Personal history of Methicillin resistant Staphylococcus aureus infection; Z79.82 Long term (current) use of aspirin; Z79.891 Long term (current) use of opiate analgesic; Z87.891 Personal history of nicotine dependence; Z83.3 Family history of diabetes mellitus; Z82.5 Family history of asthma and other chronic lower respiratory diseases

== ENCOUNTER 2017-01-01 12:54 | Emergency (ER) | payer OTHER ==
[~2017-01-01] VITALS: Ht 170.2 cm; Wt 170.6 kg
[~2017-01-01 12:54] MED LIST changes: -AMLO10TA2 PO; -ATOR10TA82 PO; -CANA1TAB PO; -CARV25TA2 PO; +HYDR100T3 PO; -LOSA100T33 PO
[2017-01-01 13:00] VITALS: TEMP 36.4; Ht 170.2 cm; Wt 170.6 kg
[2017-01-01] MEDS ORDERED: OXYC1TAB3 PO (13:12)
[2017-01-01] MEDS ORDERED: AMLO-114 PO (13:12)
[2017-01-01] MEDS ORDERED: NYST80OI TOP (13:12)
[2017-01-01] MEDS ORDERED: CANA1TAB PO (13:12)
[2017-01-01] MEDS ORDERED: LPT/20 PO (13:12)
[2017-01-01] MEDS ORDERED: ERGO500037 PO (13:12)
[2017-01-01] MEDS ORDERED: PRED20TA PO (13:12)
[2017-01-01] MEDS ORDERED: ECON118C TOP (13:12)
[2017-01-01] MEDS ORDERED: CHOL100010 PO (13:12)
[2017-01-01 13:30] VITALS: O2SAT 95
[2017-01-01 13:53] LABS: BASO % 0.1 %; BASO ABS # 0.01 K/uL (0-0.2); COMPLETE YES; HEMATOCRIT 43.7 % (42-52); IG% 0.4 %; LYMPH % 25.2 %; LYMPH ABS # 2.65 K/uL (1.2-3.4); MEAN CELL VOLUME 84.4 fL (80-100); MEAN CORPUSCULAR HGB CONC 34.3 g/dl (32-36); MEAN PLATELET VOLUME 10.3 fL (7.4-10.4); MONO % 7.8 %; NEUT % 65.5 %; PLATELET COUNT 166 K/uL (130-400); RED BLOOD COUNT 5.18 M/uL (4.7-6.1)
--- NOTE | 2017-01-01 13:54 | DIAGNOSTIC IMAGING REPORT ---
CHEST ONE VIEW PORTABLE CLINICAL HISTORY: severe hypertension COMPARISON STUDY: 12/24/2016 FINDINGS: The heart is enlarged. There is aortic tortuosity/ectasia. There is persistent soft tissue prominence the right mid mediastinum. There is no failure. There is no focal pulmonary consolidation. There are no pleural effusions.[ IMPRESSION: 1. Stable cardiomegaly 2. Stable aortic tortuosity/ectasia with soft tissue fullness of the right mid mediastinum 3. No evidence of focal pulmonary consolidation Electronically signed by: Garrett Muniz M.D. 01/01/2017 1:52 PM Dictated Date/Time: 01/01/2017 1:51 PM
[2017-01-01 14:06] LABS: PARTIAL THROMBOPLASTIN RATIO 1.2; PROTHROMBIN TIME (PATIENT) 10.2 SECONDS (9.0-12.0)
[2017-01-01 14:14] LABS: BUN/CREATININE RATIO 13.7 (10-20); CALCIUM 8.6 mg/dl (8.5-10.1); CREATININE 0.91 mg/dl (0.60-1.40); POTASSIUM 3.9 mmol/L (3.5-5.1)
[2017-01-01 14:25] LABS: THYROID STIMULATING HORMONE 1.61 uIu/ml (0.300-4.500)
[2017-01-01 14:46] LABS: URINE APPEARANCE CLEAR (CLEAR); URINE BILIRUBIN NEG (NEG); URINE COLOR YELLOW; URINE NITRITE NEG (NEG); URINE SPECIFIC GRAVITY 1.024 (1.000-1.030); UROBILINOGEN NEG (NEG)
[2017-01-01 14:54] LABS: MANUAL MICROSCOPIC REQUIRED? NO; REVIEW REQ? NO
[2017-01-01] MEDS ORDERED: LABETALOL HCL 100 MG TAB PO ONE (17:15)
[2017-01-01] MEDS ORDERED: LABE100T23 PO (17:45)
[2017-01-01 18:26] VITALS: BP 166/101; PULSE 88; O2SAT 95
--- NOTE | 2017-01-01 20:07 | EMERGENCY ROOM VISIT NOTE ---
History Report prepared by Carisa: Gregoria Rodriguez Under the Supervision of: Dr. Tonio Johnson M.D. First contact with patient: 13:07 Chief Complaint: HYPERTENSION Stated Complaint: HYPERTENSION History of Present Illness The patient is a 41 year old male who presents to the Emergency Room with complaints of hypertension beginning this morning. The patient reports that he was at therapy for chronic left foot pain, and was told his blood pressure was high. The patient states that he took his blood pressure this morning, and denies missing any blood pressure medications. He states that for the past month , he has been having left foot pain, and has had an MRI and X-Ray done to check for blood clots. He states that he has chronic left-sided back pain, and states that he has been unable to keep his balance recently. Pt denies LOC, headache, fevers, chills, diaphoresis, visual changes, neck pain, chest pain, breathing difficulties, nausea, vomiting, abdominal pain, melena, hematochezia, urinary symptoms, numbness, lymphadenopathy, rash, or other complaints. Source of History: patient Onset: this morning Position: other (global) Quality: other (hypertension ) Associated Symptoms: + back pain (chronic, left-sided), + weakness (unable to keep balance ), No fevers Note: additional symptom: chronic left foot pain Review of Systems See HPI for pertinent positives and negatives. A total of ten systems were reviewed and were otherwise negative. Past Medical & Surgical Medical Problems: (1) accelerted HTN, obesity, DM (2) ADJUSTMENT DISORDER WITH DEPRESSED MOOD (3) ANXIETY STATE NOS (4) Benign hypertension (5) DEPRESSIVE DISORDER NEC (6) Diabetes mellitus type 2 (7) Diabetic peripheral neuropathy associated with type 2 diabetes mellitus (8) Loss of sensation (9) Morbid obesity with body mass index of 50.0-59.9 in adult (10) MRSA (11) Resistant hypertension (12) TOBACCO USE DISORDER (13) uvulectomy Social History Problems: (1) Learning disability Family History Diabetes mellitus FHx: asthma Social History Smoking Status: Never Smoker Alcohol Use: none Drug Use: none Marital Status: Housing Status: lives with family Occupation Status: employed Current/Historical Medications Scheduled Amlodipine (Norvasc), 10 MG PO DAILY Aspirin (Aspirin Ec), 81 MG PO DAILY Atorvastatin (Atorvastatin Calcium), 20 MG PO HS Canagliflozin (Invokana), 100 MG PO DAILY Cholecalciferol (Vitamin D), 2,000 UNITS PO BID Dulaglutide (Trulicity), 1 DOSE INJ WK Econazole Nitrate (Econazole Nitrate), 1 APPLN TOP BID Ergocalciferol (Vitamin D 48918 Unit), 50,000 UNIT PO WK Furosemide (Lasix), 40 MG PO DAILY Gabapentin (Neurontin), 400 MG PO TID Hctz/Spironolactone (Spironolactone/Hydrochlor 25-25 mg), 1 TAB PO BID Hydralazine HCl (Hydralazine HCl), 100 MG PO TID Insulin Lispro Protamine & Lis (Humalog Mix 50/50 Kwikpen), 120 UNITS SQ BID Labetalol Hcl (Labetalol Hcl), 1 TAB PO BID Losartan Potassium (Cozaar), 100 MG PO DAILY Metformin Hcl (Glucophage), 1,000 MG PO BIDM Nystatin (Topical) (Nystatin), 1 APPLN TOP BID Prednisone (Prednisone), 40 MG PO DAILY Scheduled PRN Oxycodone Ir (Roxicodone Ir), 5 MG PO UD PRN for Pain Allergies Coded Allergies: Ceftriaxone (Verified Allergy, Severe, SHORTNESS OF BREATH, 01/01/17) Lidocaine (Verified Allergy, Severe, SHORTNESS OF BREATH, diaphoretic, hives, 01/01/17) pt unable to give further information on when reaction occured Procaine (Verified Allergy, Severe, SHORTNESS OF BREATH, diaphoretic, hives, 12/24/16) pt unable to give further information on when reaction occured Lisinopril (Verified Allergy, Intermediate, HIVES, 01/01/17) Albuterol (Verified Allergy, Mild, proair "trouble taking breaths", ) Amoxicillin (Unverified Allergy, Unknown, ., 01/01/17) Clavulanic Acid (Unverified Allergy, Unknown, ., 01/01/17) Acetaminophen (Verified Adverse Reaction, Unknown, NAUSEA, 01/01/17) Physical Exam Vital Signs Date Time Temp Pulse Resp B/P (MAP) Pulse Ox O2 Delivery O2 Flow Rate FiO2 01/01/17 18:26 88 20 166/101 95 01/01/17 17:51 88 165/110 95 Room Air 01/01/17 14:22 97 18 163/119 96 Room Air 01/01/17 13:30 95 Room Air 01/01/17 13:06 95 01/01/17 13:00 36.4 90 22 152/104 93 Room Air Physical Exam GENERAL: Awake, alert, well-appearing, in no distress HENT: Normocephalic, atraumatic. Oropharynx unremarkable. EYES: Normal conjunctiva. Sclera non-icteric. NECK: Supple. No nuchal rigidity. FROM. No JVD. RESPIRATORY: Clear to auscultation. CARDIAC: Regular rate, normal rhythm. Extremities warm and well perfused. Pulses equal. ABDOMEN: Soft, non-distended. No tenderness to palpation. No rebound or guarding. No masses. RECTAL: Deferred. MUSCULOSKELETAL: Chest examination reveals no tenderness. The back is symmetrical on inspection without obvious abnormality. There is no CVA tenderness to palpation. No joint edema. LOWER EXTREMITIES: Calves are equal size bilaterally and non-tender. No edema. No discoloration. NEURO: Normal sensorium. No sensory or motor deficits noted. SKIN: No rash or jaundice noted. Medical Decision & Procedures ER Provider Diagnostic Interpretation: Radiology results as stated below per my review and radiologist interpretation: CHEST ONE VIEW PORTABLE CLINICAL HISTORY: severe hypertension COMPARISON STUDY: 12/24/2016 FINDINGS: The heart is enlarged. There is aortic tortuosity/ectasia. There is persistent soft tissue prominence the right mid mediastinum. There is no failure. There is no focal pulmonary consolidation. There are no pleural effusions.[ IMPRESSION: 1. Stable cardiomegaly 2. Stable aortic tortuosity/ectasia with soft tissue fullness of the right mid mediastinum 3. No evidence of focal pulmonary consolidation Electronically signed by: Garrett Muniz M.D. 01/01/2017 1:52 PM Dictated Date/Time: 01/01/2017 1:51 PM Laboratory Results 01/01/17 13:05 Red Blood Count 5.18, Mean Corpuscular Volume 84.4, Mean Corpuscular Hemoglobin 29.0, Mean Corpuscular Hemoglobin Concent 34.3, Mean Platelet Volume 10.3, Neutrophils (%) (Auto) 65.5, Lymphocytes (%) (Auto) 25.2, Monocytes (%) (Auto) 7.8, Eosinophils (%) (Auto) 1.0, Basophils (%) (Auto) 0.1, Neutrophils # (Auto) 6.87, Lymphocytes # (Auto) 2.65, Monocytes # (Auto) 0.82, Eosinophils # (Auto) 0.11, Basophils # (Auto) 0.01 01/01/17 13:05 Test 01/01/17 13:05 01/01/17 14:25 White Blood Count 10.50 K/uL (4.8-10.8) Red Blood Count 5.18 M/uL (4.7-6.1) Hemoglobin 15.0 g/dL (14.0-18.0) Hematocrit 43.7 % (42-52) Mean Corpuscular Volume 84.4 fL (80-100) Mean Corpuscular Hemoglobin 29.0 pg (25-34) Mean Corpuscular Hemoglobin Concent 34.3 g/dl (32-36) Platelet Count 166 K/uL (130-400) Mean Platelet Volume 10.3 fL (7.4-10.4) Neutrophils (%) (Auto) 65.5 % Lymphocytes (%) (Auto) 25.2 % Monocytes (%) (Auto) 7.8 % Eosinophils (%) (Auto) 1.0 % Basophils (%) (Auto) 0.1 % Neutrophils # (Auto) 6.87 K/uL (1.4-6.5) Lymphocytes # (Auto) 2.65 K/uL (1.2-3.4) Monocytes # (Auto) 0.82 K/uL (0.11-0.59) Eosinophils # (Auto) 0.11 K/uL (0-0.5) Basophils # (Auto) 0.01 K/uL (0-0.2) RDW Standard Deviation 42.2 fL (36.4-46.3) RDW Coefficient of Variation 13.7 % (11.5-14.5) Immature Granulocyte % (Auto) 0.4 % Immature Granulocyte # (Auto) 0.04 K/uL (0.00-0.02) Prothrombin Time 10.2 SECONDS (9.0-12.0) Prothromb Time International Ratio 1.0 (0.9-1.1) Activated Partial Thromboplast Time 30.8 SECONDS (21.0-31.0) Partial Thromboplastin Ratio 1.2 Anion Gap 8.0 mmol/L (3-11) Est Creatinine Clear Calc Drug Dose 164.7 ml/min Estimated GFR () 121.8 Estimated GFR (Non- 105.0 BUN/Creatinine Ratio 13.7 (10-20) Calcium Level 8.6 mg/dl (8.5-10.1) Total Bilirubin 0.4 mg/dl (0.2-1) Direct Bilirubin 0.1 mg/dl (0-0.2) Aspartate Amino Transf (AST/SGOT) 15 U/L (15-37) Alanine Aminotransferase (ALT/SGPT) 26 U/L (12-78) Alkaline Phosphatase 97 U/L (45-117) Total Protein 7.5 gm/dl (6.4-8.2) Albumin 3.4 gm/dl (3.4-5.0) Lipase 152 U/L (73-393) Thyroid Stimulating Hormone (TSH) 1.610 uIu/ml (0.300-4.500) Urine Color YELLOW Urine Appearance CLEAR (CLEAR) Urine pH 7.0 (4.5-7.5) Urine Specific Harmony 1.024 (1.000-1.030) Urine Protein NEG (NEG) Urine Glucose (UA) 2+ (NEG) Urine Ketones NEG (NEG) Urine Occult Blood NEG (NEG) Urine Nitrite NEG (NEG) Urine Bilirubin NEG (NEG) Urine Urobilinogen NEG (NEG) Urine Leukocyte Esterase NEG (NEG) Laboratory results reviewed by me Medications Administered Medications (Trade) Dose Ordered Sig/Faby Route Start Time Stop Time Status Last Admin Dose Admin Labetalol HCl (Normodyne Tab) 100 mg NOW ONCE PO 01/01/17 17:15 01/01/17 17:25 DC 01/01/17 17:40 100 MG ECG Indication: other (hypertension ) Rate (beats per minute): 87 Rhythm: normal sinus Findings: no acute ischemic change, no ectopy ED Course 1322: The patient was evaluated in room A9A. A complete history and physical exam was performed. 1620: I discussed the patient's case with Dr. Briceno. He recommended that the patient increase Hydralazine to 4x daily. 1710: After discussion with pharmacist, Hydralazine is already maxed out at [address] Briceno recommended 100 mg of Labetalol twice daily. 1715: Ordered Labetalol HCl 100 mg PO. 1745: I reevaluated the patient. Discussed results and discharge instructions: He verbalized understanding and agreement. The patient is ready for discharge. Medical Decision Prior records/ancillary studies reviewed regarding the history above. Triage Nursing notes reviewed and agree them. Additional history obtained from the patient's primary physician, Dr. Briceno. The patient's history was concerning for hypertension. Differential diagnosis: Etiologies such as hypertensive urgency, hypertensive emergency, benign hypertension, cardiovascular pathology, pheochromocytoma, electrolyte abnormality, renal disease, endorgan damage, as well as others were entertained. Physical examination: As above. ER treatment provided: Oral labetalol On reassessment the patient felt better. Diagnostic interpretation by me: The electrocardiogram was negative for pathologic change. The labs revealed an unremarkable CBC and chemistry panel. Imaging studies: Chest x-ray as above Consultation: A consultation was placed with the patient's primary physician, Dr. Briceno. Given the patient's significant hypertension and his current medications we concluded that labetalol 100 mg twice a day would be initiated with close outpatient follow-up. The patient has a follow-up appointment with nephrology. He also follow-up with the primary office. He was given 2 week supply of medication in order to get him through the follow-up appointments. The patient and felt comfortable with the plan. If he worsens in any way he will be back. I gave my usual and customary discussion regarding this issue. The patient is pending a with this plan evaluation for chronic left leg pain and numbness. He denies any acute changes today. By the evaluation outlined above emergent etiologies such as hypertensive emergency, pheochromocytoma, endorgan damage, cardiac ischemia, aortic dissection, pulmonary embolism, pneumonia, pneumothorax, infections, gastrointestinal, as well as others were deemed relatively unlikely. The patient was informed about the findings as listed above. All questions were answered and he was pleased with the treatment. Return instructions were outlined and the patient was discharged in stable condition. Outpatient prescription management: Labetalol 100 mg twice a day Medication Reconcilliation Current Medication List: was personally reviewed by me Blood Pressure Screening Patient's blood pressure: Elevated blood pressure Blood pressure disposition: Referred to PCP Consults Time Called: 1600 Consulting Physician: Dr. Briceno[facility] Returned Call: 1620 I discussed the patient's case with Dr. Briceno. He recommended that the patient increase Hydralazine to 4x daily. Additional Consults: Time Called: 1700 Consulted Physician: Dr. Briceno- [facility] Returned Call: 1710 Additional Comments: After discussion with pharmacist, Hydralazine is already maxed out at [address] Briceno recommended 100 mg of Labetalol twice daily. Impression Primary Impression: Hypertension Scribe Attestation The scribe's documentation has been prepared under my direction and personally reviewed by me in its entirety. I confirm that the note above accurately reflects all work, treatment, procedures, and medical decision making performed by me. Departure Information Dispostion Home / Self-Care Prescriptions Labetalol Hcl (LABETALOL HCL) 100 Mg Tab 1 TAB PO BID, #30 TAB Prov: Tonio Johnson MD 01/01/17 Referrals Bertrand Briceno M.D. (PCP) Forms HOME CARE DOCUMENTATION FORM, IMPORTANT VISIT INFORMATION, WORK / SCHOOL INSTRUCTIONS Patient Instructions My [facility] Additional Instructions Start labetalol 100 mg twice daily for your blood pressure. Continue all other blood pressure medications as prescribed. Continue all of your other medications as prescribed. Follow-up with your [facility] as scheduled. Follow-up with Dr. Briceno's office next week. Return to the ER for worsening blood pressure problems, medication issues, chest pain, difficulty breathing, fevers, vomiting, worsening of your condition , or as needed.
== END 2017-01-01 18:20 | disposition home or self-care (01) ==
LOC: EDBD 12:54 → C.EDA 12:55
DX: I10 Essential (primary) hypertension (principal); G89.29 Other chronic pain; M79.672 Pain in left foot; E66.01 Morbid (severe) obesity due to excess calories; Z68.43 Body mass index [BMI] 50.0-59.9, adult; E11.43 Type 2 diabetes mellitus with diabetic autonomic (poly)neuropathy; F41.9 Anxiety disorder, unspecified; F79 Unspecified intellectual disabilities; Z83.3 Family history of diabetes mellitus; Z82.5 Family history of asthma and other chronic lower respiratory diseases; Z79.82 Long term (current) use of aspirin; Z79.899 Other long term (current) drug therapy

== ENCOUNTER 2017-01-08 08:08 | Emergency (ER) | payer OTHER ==
[~2017-01-08] VITALS: Ht 170.2 cm; Wt 167.3 kg
[~2017-01-08 08:08] MED LIST changes: +AMLO-114 PO; +CANA1TAB PO; +CHOL100010 PO; -CHOL2000 PO; +ECON118C TOP; +ERGO500037 PO; -FLX10 PO; +LABE100T23 PO; +LPT/20 PO; +NYST80OI TOP; +OXYC1TAB3 PO; +PRED20TA PO
[2017-01-08 08:11] VITALS: TEMP 36.4; Ht 170.2 cm; Wt 167.3 kg
[2017-01-08 08:20] VITALS: O2SAT 95
[2017-01-08 09:01] LABS: MEAN CELL VOLUME 85.1 fL (80-100); MEAN CORPUSCULAR HEMOGLOBIN 29.2 pg (25-34); MEAN CORPUSCULAR HGB CONC 34.3 g/dl (32-36); MEAN PLATELET VOLUME 10.2 fL (7.4-10.4); PLATELET COUNT 167 K/uL (130-400); RED BLOOD COUNT 5.17 M/uL (4.7-6.1); WHITE BLOOD COUNT 11.47 K/uL (4.8-10.8)
--- NOTE | 2017-01-08 09:14 | DIAGNOSTIC IMAGING REPORT ---
CHEST 2 VIEWS ROUTINE HISTORY: 41 years-old Male HTN acute hypertension with lightheadedness COMPARISON: Chest radiograph 01/01/2017 TECHNIQUE: 2 views of the chest FINDINGS: Cardiac silhouette is moderately enlarged, unchanged. Tortuosity of the thoracic aorta is unchanged. There is no pneumothorax, pleural effusion, focal airspace consolidation or overt pulmonary edema. Bones of the chest are grossly intact. Multilevel endplate spurring is seen throughout the spine. IMPRESSION: Cardiomegaly without acute cardiopulmonary process. The above report was generated using voice recognition software. It may contain grammatical, syntax or spelling errors. Electronically signed by: Petr Irby M.D. 01/08/2017 9:13 AM Dictated Date/Time: 01/08/2017 9:12 AM
[2017-01-08 09:25] LABS: BLOOD UREA NITROGEN 15 mg/dl (7-18); BUN/CREATININE RATIO 17.2 (10-20); CARBON DIOXIDE 25 mmol/L (21-32); CHLORIDE 101 mmol/L (98-107); CREATININE 0.85 mg/dl (0.60-1.40); GLUCOSE 184 mg/dl (70-99); POTASSIUM 4.2 mmol/L (3.5-5.1); SODIUM 134 mmol/L (136-145)
--- NOTE | 2017-01-08 09:25 | EMERGENCY ROOM VISIT NOTE ---
History Report prepared by Carisa: Shaneka Laughlin Under the Supervision of: Dr. Ronald Mendieta M.D. First contact with patient: 08:19 Chief Complaint: HYPERTENSION Stated Complaint: HIGH BLOOD PRESSURE, FAINT FEELING History of Present Illness The patient is a 41 year old male who presents to the Emergency Room with complaints of persistent hypertension that has been ongoing for the past several weeks. The patient states that this morning his blood pressure was 195/ 132. He notes that his hypertension has been making him diaphoretic and has been experiencing hot and cold flashes. The patient states that he is also experiencing a sharp pain in his chest. He states he has been experiencing pain in his left foot. He notes he has had an x-ray and CT scan for his left foot, revealing he has some damaged tissues. The patient notes that his weight has been fluctuating. He states he takes medication to regulate his blood sugar and hypertension. He notes that he takes 2 shots of insulin daily. The patient states that he has been taking his medication as directed. He states that today his blood glucose was 244. Source of History: patient Onset: Several weeks Position: other (global) Symptom Intensity: 195/132 mmHg Quality: other (hypertension) Timing: other (persistent ) Associated Symptoms: + diaphoresis, + chest pain (sharp chest pain) Note: Associated Symptoms: hot and cold flashes Review of Systems All systems have been listed, reviewed, and are negative other than those previously mentioned. Please see Additional Medical History Sheet. Past Medical & Surgical Medical Problems: (1) accelerted HTN, obesity, DM (2) ADJUSTMENT DISORDER WITH DEPRESSED MOOD (3) ANXIETY STATE NOS (4) Benign hypertension (5) DEPRESSIVE DISORDER NEC (6) Diabetes mellitus type 2 (7) Diabetic peripheral neuropathy associated with type 2 diabetes mellitus (8) Loss of sensation (9) Morbid obesity with body mass index of 50.0-59.9 in adult (10) MRSA (11) Resistant hypertension (12) TOBACCO USE DISORDER (13) uvulectomy Social History Problems: (1) Learning disability Family History Diabetes mellitus FHx: asthma Social History Smoking Status: Never Smoker Alcohol Use: none Drug Use: none Marital Status: Housing Status: lives with family Occupation Status: employed Current/Historical Medications Scheduled Amlodipine (Norvasc), 10 MG PO DAILY Atorvastatin (Lipitor), 20 MG PO DAILY Dulaglutide (Trulicity), 1.5 MG SC WK Duloxetine HCl (Cymbalta), 30 MG PO DAILY Furosemide (Lasix), 40 MG PO DAILY Gabapentin (Neurontin), 400 MG PO TID Hydralazine Hcl (Apresoline), 100 MG PO TID Insulin Lispro Protamine & Lis (Humalog Mix 50/50), 120 UNITS SC AMPM Labetalol Hcl (Labetalol Hcl), 100 MG PO BID Losartan Potassium (Cozaar), 100 MG PO DAILY Meloxicam (Mobic), 15 MG PO DAILY Metformin Hcl (Glucophage), 1,000 MG PO BIDM Allergies Coded Allergies: Ceftriaxone (Verified Allergy, Severe, SHORTNESS OF BREATH, 01/08/17) Lidocaine (Verified Allergy, Severe, SHORTNESS OF BREATH, diaphoretic, hives, 01/08/17) pt unable to give further information on when reaction occured Procaine (Verified Allergy, Severe, SHORTNESS OF BREATH, diaphoretic, hives, 01/08/17) pt unable to give further information on when reaction occured Lisinopril (Verified Allergy, Intermediate, HIVES, 01/08/17) Albuterol (Verified Allergy, Mild, proair "trouble taking breaths", ) Amoxicillin (Unverified Allergy, Unknown, ., 01/08/17) Clavulanic Acid (Unverified Allergy, Unknown, ., 01/08/17) Acetaminophen (Verified Adverse Reaction, Unknown, NAUSEA, 01/08/17) Physical Exam Vital Signs Date Time Temp Pulse Resp B/P (MAP) Pulse Ox O2 Delivery O2 Flow Rate FiO2 01/08/17 10:29 63 20 168/119 96 Room Air 01/08/17 10:15 60 22 172/110 96 Room Air 01/08/17 08:34 165/108 01/08/17 08:25 89 01/08/17 08:20 95 Room Air 01/08/17 08:11 36.4 82 18 205/149 96 Room Air Physical Exam GENERAL: Patient awake, alert, oriented x 3. Patient follows commands. Patient does not appear toxic. Patient is adequately hydrated and well- nourished. SKIN: No erythema, pallor, cyanosis or rash HEENT: Normal head, pupils equal, reactive to light and accommodation. LUNGS: Clear to auscultation. No wheezes, no rales, no rhonchi. HEART: No murmurs. No gallops. No rubs ABDOMEN: Morbidly obese. 6cm bruise on left upper abdomen. No masses, no rebound , no hepatomegaly or splenomegaly. EXTREMITIES: No signs of trauma. No pedal or pretibial edema. No calf or thigh tenderness. Left foot has no signs of trauma or infection, no point tenderness. NEUROLOGIC: Cranial nerves II-XII within normal limits. No gross motor sensory function deficits. Medical Decision & Procedures ER Provider Diagnostic Interpretation: Radiology results as stated below per my review and radiologist interpretation: CHEST 2 VIEWS ROUTINE HISTORY: 41 years-old Male HTN acute hypertension with lightheadedness COMPARISON: Chest radiograph 01/01/2017 TECHNIQUE: 2 views of the chest FINDINGS: Cardiac silhouette is moderately enlarged, unchanged. Tortuosity of the thoracic aorta is unchanged. There is no pneumothorax, pleural effusion, focal airspace consolidation or overt pulmonary edema. Bones of the chest are grossly intact. Multilevel endplate spurring is seen throughout the spine. IMPRESSION: Cardiomegaly without acute cardiopulmonary process. The above report was generated using voice recognition software. It may contain grammatical, syntax or spelling errors. Electronically signed by: Petr Irby M.D. 01/08/2017 9:13 AM Laboratory Results 01/08/17 08:40 01/08/17 08:40 Test 01/08/17 08:40 Red Blood Count 5.17 M/uL (4.7-6.1) Mean Corpuscular Volume 85.1 fL (80-100) Mean Corpuscular Hemoglobin 29.2 pg (25-34) Mean Corpuscular Hemoglobin Concent 34.3 g/dl (32-36) RDW Standard Deviation 42.8 fL (36.4-46.3) RDW Coefficient of Variation 13.8 % (11.5-14.5) Mean Platelet Volume 10.2 fL (7.4-10.4) Anion Gap 8.0 mmol/L (3-11) Est Creatinine Clear Calc Drug Dose 174.2 ml/min Estimated GFR () 126.3 Estimated GFR (Non- 109.0 BUN/Creatinine Ratio 17.2 (10-20) Calcium Level 9.0 mg/dl (8.5-10.1) Troponin I < 0.015 ng/ml (0-0.045) Laboratory results as stated above per my review. ECG Indication: other (hypertension) Rate (beats per minute): 74 Rhythm: normal sinus Findings: no acute ischemic change, left axis deviation, no ectopy ED Course 08: Past medical records reviewed. The patient was evaluated in room A11B. A complete history and physical examination was performed. 1019: I reevaluated the patient and he is resting comfortably. I discussed the exam findings with him and I discussed the treatment plan. He verbalized complete understanding and agreement. He is ready to go home. Medical Decision Nurses notes reviewed. Medical history sheet reviewed. Differential diagnosis includes but is not limited to: Hypertension out of control, Malignant Hypertension, Medication compliance, Metabolic disorder. 41-year-old male here with elevated blood pressure. Patient also complains of some chest pain. The patient is on multiple blood pressure medications which he says he is taking as prescribed. Patient is also diabetic. Differential diagnosis includes hypertension out of control, malignant hypertension, myocardial infarction, chest wall pain, pericarditis, myocarditis, aortic emergencies, pulmonary embolism, congestive heart failure, GI causes, and other significant cardiopulmonary disorders. The patient's exam reveals some tenderness on palpation over the mid sternum. The patient does not have any signs of acute trauma of his chest. Multiple labs , EKG and imaging were obtained. Please see above. The patient's troponin is not elevated. Chest x-ray is unchanged. Patient's blood pressure came down without any additional medications. The patient is currently on many medications and I wonder if he is taking them as prescribed. I will not attempt to lower the blood pressure more at this time. I have reinforced the need for him to take them religiously. The patient is also to follow-up with his family physician. I do not believe the patient requires admission at this time. Medication Reconcilliation Current Medication List: was personally reviewed by me Blood Pressure Screening Patient's blood pressure: Elevated blood pressure Blood pressure disposition: Referred to PCP Impression Primary Impression: Hypertension Additional Impression: Chest wall pain Scribe Attestation The scribe's documentation has been prepared under my direction and personally reviewed by me in its entirety. I confirm that the note above accurately reflects all work, treatment, procedures, and medical decision making performed by me. Departure Information Dispostion Home / Self-Care Referrals Bertrand Briceno M.D. (PCP) Forms HOME CARE DOCUMENTATION FORM, IMPORTANT VISIT INFORMATION, WORK / SCHOOL INSTRUCTIONS Patient Instructions My [facility] Additional Instructions Make sure you take all of your medications exactly as prescribed. Follow-up with Dr. Briceno on . Problem Qualifiers
[2017-01-08] MEDS ORDERED: DULA0.5I SC (09:50)
[2017-01-08] MEDS ORDERED: GABA1CAP5 PO (09:50)
[2017-01-08] MEDS ORDERED: MELO15TA10 PO (09:50)
[2017-01-08] MEDS ORDERED: LABE100T23 PO (09:50)
[2017-01-08] MEDS ORDERED: CYM/30 PO (09:50)
[2017-01-08] MEDS ORDERED: HYDR100T12 PO (09:50)
[2017-01-08] MEDS ORDERED: FRS/40 PO (09:50)
[2017-01-08] MEDS ORDERED: AMLO-114 PO (09:50)
[2017-01-08] MEDS ORDERED: GLC/500 PO (09:50)
[2017-01-08] MEDS ORDERED: LOSA100T65 PO (09:50)
[2017-01-08] MEDS ORDERED: INSU50IN SC (09:50)
[2017-01-08] MEDS ORDERED: ATOR-22 PO (09:50)
[2017-01-08 10:29] VITALS: BP 168/119; PULSE 63; O2SAT 96
== END 2017-01-08 10:36 | disposition home or self-care (01) ==
LOC: C.EDB 08:09 → C.EDA 10:36
DX: I10 Essential (primary) hypertension (principal); R07.89 Other chest pain; E11.42 Type 2 diabetes mellitus with diabetic polyneuropathy; F32.9 Major depressive disorder, single episode, unspecified; F41.9 Anxiety disorder, unspecified; F17.200 Nicotine dependence, unspecified, uncomplicated; Z86.14 Personal history of Methicillin resistant Staphylococcus aureus infection; Z79.4 Long term (current) use of insulin; Z79.84 Long term (current) use of oral hypoglycemic drugs; Z79.899 Other long term (current) drug therapy; Z98.890 Other specified postprocedural states; Z88.1 Allergy status to other antibiotic agents; Z88.6 Allergy status to analgesic agent; Z88.8 Allergy status to other drugs, medicaments and biological substances; Z83.3 Family history of diabetes mellitus; Z82.5 Family history of asthma and other chronic lower respiratory diseases

== ENCOUNTER → 2017-01-23 | Outpatient (CLI) | payer OTHER ==
[~2017-01-23] VITALS: Ht 170.2 cm; Wt 165.2 kg
[~2017-01-23] MED LIST changes: +ATOR-22 PO; +BNC/40 PO; +CHOL1000 PO; -CHOL100010 PO; +CHOL20007 PO; +CYM/30 PO; -DULA0.5I INJ; +DULA0.5I SC; +DULO60CA44 PO; -ECON118C TOP; +HYDR100T12 PO; -HYDR100T3 PO; +IBUP-1451 PO; +INSU50IN SC; -INSU50IN3 SQ; -LPT/20 PO; +MELO15TA10 PO; +SPCCR30 TOP; -SPIR1TAB72 PO; +SPIR50TA PO; +TRAM-10 PO
[2017-01-23 13:12] VITALS: BP 175/129; PULSE 83; Ht 170.2 cm; Wt 165.2 kg
== END | disposition home or self-care (01) ==
LOC: C.NEUR 12:00
PROVIDERS: ATTEND Internal Medicine Pulmonary Disease
DX: G47.33 Obstructive sleep apnea (adult) (pediatric) (principal); G47.00 Insomnia, unspecified

== ENCOUNTER 2017-01-25 12:11 | Observation (INO) | payer OTHER ==
[~2017-01-25] VITALS: Ht 170.2 cm; Wt 164.2 kg
[~2017-01-25 12:11] MED LIST changes: -ASPI81TA28 PO; -BNC/40 PO; -CANA1TAB PO; -CHOL1000 PO; -CHOL20007 PO; -DULO60CA44 PO; -ERGO500037 PO; -IBUP-1451 PO; -NYST80OI TOP; -OXYC1TAB3 PO; -PRED20TA PO; -SPCCR30 TOP; -SPIR50TA PO; -TRAM-10 PO
[2017-01-25] MEDS ORDERED: FAMOTIDINE 20MG/5ML IV PUSH IV STA (12:20)
[2017-01-25] MEDS ORDERED: SODIUM CHLORIDE 0.9% 1000ML 1,000 ML IV STA (12:20)
[2017-01-25] MEDS ORDERED: OXYC1TAB3 PO (12:50)
[2017-01-25] MEDS ORDERED: SPIR50TA PO (12:50)
[2017-01-25] MEDS ORDERED: SPCCR30 TOP (12:50)
[2017-01-25] MEDS ORDERED: IBUP-1451 PO (12:50)
[2017-01-25] MEDS ORDERED: CHOL1000 PO (12:50)
[2017-01-25] MEDS ORDERED: TRAM-10 PO (12:50)
[2017-01-25] MEDS ORDERED: ERGO500037 PO (12:50)
[2017-01-25] MEDS ORDERED: BNC/40 PO (12:50)
[2017-01-25] MEDS ORDERED: NYST80OI TOP (12:50)
[2017-01-25] MEDS ORDERED: PRED20TA PO (12:50)
[2017-01-25] MEDS ORDERED: ASPI81TA28 PO (12:50)
[2017-01-25] MEDS ORDERED: CANA1TAB PO (12:50)
--- NOTE | 2017-01-25 12:56 | EMERGENCY ROOM VISIT NOTE ---
History Report prepared by Carisa: Faith Wilson Under the Supervision of: Dr. Tonio Johnson M.D. First contact with patient: 12:18 Chief Complaint: GI ASSESSMENT Stated Complaint: BLOOD IN STOMACH History of Present Illness The patient is a 41 year old male who presents to the Emergency Room with complaints of intermittent bloody stool beginning 2 weeks ago. The patient states that he has a history of high blood pressure and has been seen here recently for his hypertension. He reports that last week he started spitting up blood and black chunks. He notes that he has also had black and bloody stool that has been becoming more brown over the last 2 weeks. The patient is currently taking aspirin and Motrin. He has chronic left hip pain and is pending surgery. The patient complains of incontinence, lightheadedness, dizziness, left upper abdominal pain, and hard stool. He denies any nose bleeds , dysuria, headache, fevers, chills, diaphoresis, visual changes, neck pain, chest pain, breathing difficulties, new back pain, numbness, weakness, lymphadenopathy, rash, or other complaints. Source of History: patient Onset: 2 weeks ago Position: other (global) Quality: other (bloody stool) Timing: intermittent Associated Symptoms: + abdominal pain, + urinary symptoms Note: The patient complains of lightheadedness, dizziness, and hard stool. Review of Systems See HPI for pertinent positives and negatives. A total of ten systems were reviewed and were otherwise negative. Past Medical & Surgical Medical Problems: (1) accelerted HTN, obesity, DM (2) ADJUSTMENT DISORDER WITH DEPRESSED MOOD (3) ANXIETY STATE NOS (4) Benign hypertension (5) DEPRESSIVE DISORDER NEC (6) Diabetes mellitus type 2 (7) Diabetic peripheral neuropathy associated with type 2 diabetes mellitus (8) Loss of sensation (9) Morbid obesity with body mass index of 50.0-59.9 in adult (10) MRSA (11) Resistant hypertension (12) TOBACCO USE DISORDER (13) uvulectomy Social History Problems: (1) Learning disability Family History Diabetes mellitus FHx: asthma Social History Smoking Status: Former Smoker Alcohol Use: none Drug Use: none Marital Status: Housing Status: lives with family Occupation Status: employed Current/Historical Medications Scheduled Amlodipine (Norvasc), 10 MG PO QAM Aspirin (Aspirin Ec), 81 MG PO QAM Atorvastatin (Lipitor), 20 MG PO HS Canagliflozin (Invokana), 10 MG PO QAM Cholecalciferol (Vitamin D3), 1 TAB PO TID Dulaglutide (Trulicity), 1.5 MG SC WK Duloxetine Hcl (Cymbalta), 60 MG PO QAM Furosemide (Lasix), 40 MG PO QAM Gabapentin (Neurontin), 400 MG PO TID Hctz/Spironolactone 25MG/25MG (Aldactazide 25MG/25MG), 1 TAB PO BID Hydralazine Hcl (Apresoline), 100 MG PO TID Ibuprofen Tab (Motrin), 800 MG PO Q8H Insulin Lispro Protamine & Lis (Humalog Mix 50/50), 120 UNITS SC AMPM Labetalol Hcl (Labetalol Hcl), 200 MG PO BID Losartan Potassium (Cozaar), 100 MG PO QAM Meloxicam (Mobic), 15 MG PO HS Metformin Hcl (Glucophage), 1,000 MG PO BIDM Olmesartan Medoxomil (Benicar), 40 MG PO QAM Prednisone (Prednisone), 40 MG PO QAM Scheduled PRN Tramadol (Ultram), 50 MG PO Q8H PRN for Pain Allergies Coded Allergies: Ceftriaxone (Verified Allergy, Severe, SHORTNESS OF BREATH, 01/25/17) Lidocaine (Verified Allergy, Severe, SHORTNESS OF BREATH, diaphoretic, hives, 01/25/17) pt unable to give further information on when reaction occured Procaine (Verified Allergy, Severe, SHORTNESS OF BREATH, diaphoretic, hives, 01/25/17) pt unable to give further information on when reaction occured Lisinopril (Verified Allergy, Intermediate, HIVES, 01/25/17) Albuterol (Verified Allergy, Mild, proair "trouble taking breaths", ) Amoxicillin (Verified Allergy, Unknown, ., 01/25/17) Clavulanic Acid (Verified Allergy, Unknown, ., 01/25/17) Acetaminophen (Verified Adverse Reaction, Unknown, NAUSEA, 01/25/17) Physical Exam Vital Signs Date Time Temp Pulse Resp B/P (MAP) Pulse Ox O2 Delivery O2 Flow Rate FiO2 01/25/17 15:10 79 16 171/116 96 Room Air 12/14/17 13:51 174/110 01/25/17 13:41 83 19 96 01/25/17 13:39 100 01/25/17 13:03 97 Room Air 01/25/17 12:12 36.4 76 20 210/148 94 Room Air Physical Exam GENERAL: Awake, alert, well-appearing, in no distress HENT: Normocephalic, atraumatic. Oropharynx unremarkable. EYES: Normal conjunctiva. Sclera non-icteric. NECK: Supple. No nuchal rigidity. FROM. No JVD. RESPIRATORY: Clear to auscultation. CARDIAC: Regular rate, normal rhythm. Extremities warm and well perfused. Pulses equal. ABDOMEN: Soft, non-distended. Epigastric and LUQ pain. No rebound or guarding. No masses. RECTAL: Deferred. MUSCULOSKELETAL: Chest examination reveals no tenderness. The back is symmetrical on inspection without obvious abnormality. There is no CVA tenderness to palpation. No joint edema. LOWER EXTREMITIES: Calves are equal size bilaterally and non-tender. No edema. No discoloration. NEURO: Normal sensorium. No sensory or motor deficits noted. SKIN: No rash or jaundice noted. Medical Decision & Procedures ER Provider Diagnostic Interpretation: Radiology results as stated below per my review and radiologist interpretation: CHEST ONE VIEW PORTABLE FINDINGS: Atherosclerosis of aortic arch. Cardiac silhouette mildly enlarged, unchanged. Dominance of pulmonary vasculature. Lungs and pleural spaces clear. Osseous structures normal. Upper abdomen normal. IMPRESSION: 1. Cardiac megaly with volume overload. No jose pulmonary edema. Electronically signed by: Negro Schroeder M.D. 01/25/2017 1:02 PM Dictated Date/Time: 01/25/2017 1:[address] SCAN OF THE ABDOMEN AND PELVIS WITH IV CONTRAST FINDINGS: Lung bases: The heart is normal in size and without pericardial effusion. The lung bases are clear. There is a tiny hiatal hernia. Liver: The contrast-enhanced liver is enlarged, measuring 21 cm in length. The liver demonstrates diffusely diminished attenuation consistent with hepatic steatosis. There is no intrahepatic biliary ductal dilatation. The hepatic veins and portal veins are patent. Gallbladder: Surgically absent noting clips in the gallbladder fossa. Spleen: Normal in size and attenuation. Pancreas: Unremarkable. Adrenal glands: Unremarkable. Kidneys: The contrast enhanced kidneys are normal in size and without hydronephrosis. The kidneys enhance and excrete symmetrically. Abdominal vasculature: The abdominal aorta is normal in course and caliber noting scattered foci of atherosclerotic calcification. Bowel: The small bowel and colon are normal in course and caliber. The appendix is well-visualized and normal. Peritoneum: There is no intraperitoneal free air or abdominal ascites. Lymphadenopathy: None. Pelvic viscera: The bladder, prostate, and seminal vesicles are normal as visualized. Skeletal structures: There are bilateral pars defects at L5 with minimal anterolisthesis at L5-S1. Mild spondylotic changes noted. No lytic or blastic lesions are seen. IMPRESSION: 1. There are no acute infectious or inflammatory findings in the abdomen or pelvis. 2. Hepatomegaly and severe hepatic steatosis. 3. Additional findings as above. Electronically signed by: Abhilash Carpio M.D. 01/25/2017 2:54 PM Dictated Date/Time: 01/25/2017 2:49 PM Laboratory Results 01/25/17 13:02 Red Blood Count 4.92, Mean Corpuscular Volume 84.3, Mean Corpuscular Hemoglobin 28.5, Mean Corpuscular Hemoglobin Concent 33.7, Mean Platelet Volume 10.2, Neutrophils (%) (Auto) 60.5, Lymphocytes (%) (Auto) 30.2, Monocytes (%) (Auto) 7.4, Eosinophils (%) (Auto) 1.4, Basophils (%) (Auto) 0.1, Neutrophils # (Auto) 4.88, Lymphocytes # (Auto) 2.44, Monocytes # (Auto) 0.60, Eosinophils # (Auto) 0.11, Basophils # (Auto) 0.01 01/25/17 13:02 Test 01/25/17 13:02 01/25/17 14:28 01/25/17 16:23 White Blood Count 8.07 K/uL (4.8-10.8) Red Blood Count 4.92 M/uL (4.7-6.1) Hemoglobin 14.0 g/dL (14.0-18.0) Hematocrit 41.5 % (42-52) Mean Corpuscular Volume 84.3 fL (80-100) Mean Corpuscular Hemoglobin 28.5 pg (25-34) Mean Corpuscular Hemoglobin Concent 33.7 g/dl (32-36) Platelet Count 143 K/uL (130-400) Mean Platelet Volume 10.2 fL (7.4-10.4) Neutrophils (%) (Auto) 60.5 % Lymphocytes (%) (Auto) 30.2 % Monocytes (%) (Auto) 7.4 % Eosinophils (%) (Auto) 1.4 % Basophils (%) (Auto) 0.1 % Neutrophils # (Auto) 4.88 K/uL (1.4-6.5) Lymphocytes # (Auto) 2.44 K/uL (1.2-3.4) Monocytes # (Auto) 0.60 K/uL (0.11-0.59) Eosinophils # (Auto) 0.11 K/uL (0-0.5) Basophils # (Auto) 0.01 K/uL (0-0.2) RDW Standard Deviation 43.2 fL (36.4-46.3) RDW Coefficient of Variation 14.0 % (11.5-14.5) Immature Granulocyte % (Auto) 0.4 % Immature Granulocyte # (Auto) 0.03 K/uL (0.00-0.02) Activated Partial Thromboplast Time 27.7 SECONDS (21.0-31.0) Partial Thromboplastin Ratio 1.1 Anion Gap 4.0 mmol/L (3-11) Estimated GFR () 136.0 Estimated GFR (Non- 117.4 BUN/Creatinine Ratio 18.9 (10-20) Calcium Level 8.2 mg/dl (8.5-10.1) Total Bilirubin 0.4 mg/dl (0.2-1) Direct Bilirubin 0.1 mg/dl (0-0.2) Aspartate Amino Transf (AST/SGOT) 13 U/L (15-37) Alanine Aminotransferase (ALT/SGPT) 24 U/L (12-78) Alkaline Phosphatase 82 U/L (45-117) Total Creatine Kinase 172 U/L (39-308) Creatine Kinase MB 1.7 ng/ml (0.5-3.6) Creatine Kinase MB Ratio 1.0 (0-3.0) Troponin I < 0.015 ng/ml (0-0.045) Total Protein 7.2 gm/dl (6.4-8.2) Albumin 3.3 gm/dl (3.4-5.0) Lipase 225 U/L (73-393) Urine Color YELLOW Urine Appearance CLEAR (CLEAR) Urine pH 7.5 (4.5-7.5) Urine Specific [place] 1.023 (1.000-1.030) Urine Protein NEG (NEG) Urine Glucose (UA) NEG (NEG) Urine Ketones NEG (NEG) Urine Occult Blood NEG (NEG) Urine Nitrite NEG (NEG) Urine Bilirubin NEG (NEG) Urine Urobilinogen NEG (NEG) Urine Leukocyte Esterase TRACE (NEG) Urine WBC (Auto) 1-5 /hpf (0-5) Urine RBC (Auto) 0-4 /hpf (0-4) Urine Hyaline Casts (Auto) 1-5 /lpf (0-5) Urine Epithelial Cells (Auto) >30 /lpf (0-5) Urine Bacteria (Auto) NEG (NEG) Laboratory results reviewed by me Medications Administered Medications (Trade) Dose Ordered Sig/Faby Route Start Time Stop Time Status Last Admin Dose Admin Sodium Chloride 1,000 ml @ 999 mls/hr Q1H1M STAT IV 01/25/17 12:20 01/25/17 13:20 DC 01/25/17 13:01 999 MLS/HR Famotidine (Pepcid 20mg Iv Push) 20 mg ONE STAT IV 01/25/17 12:20 01/25/17 12:23 DC 01/25/17 13:01 20 MG Pantoprazole Sodium 40 mg/ Dextrose 100 ml @ 20 mls/hr Q5H IV 01/25/17 16:30 01/25/17 21:29 01/25/17 16:24 20 MLS/HR ECG Indication: abdominal pain Rate (beats per minute): 81 Rhythm: normal sinus Findings: no acute ischemic change, no ectopy ED Course 1218: The patient was evaluated in room B10. A complete history and physical exam was performed. 1220: Famotidine 20mg IV, Sodium Chloride 1000 ml @ 999 mls/hr IV. 1528: I reevaluated and updated the patient. Rectal was heme negative. 1602: I spoke to Dr. Girard of GI. She recommended admission to general medicine and no PO after midnight for a scope tomorrow. 1615: Pantoprazole Sodium 80mg/Dextrose 120ml @ 480mls.hr IV. 1609: Discussed the patient's [place] [facility] [place] The patient will be evaluated for further treatment and disposition. 1617: Upon reexamination, the patient was doing well. I discussed the test results and treatment plan with him. The patient will be evaluated for further management. 1630: Pantoprazole Sodium 40mg/Dextrose 100ml @ 20mls/hr IV. Medical Decision Triage Nursing notes reviewed. The patient's presentation and history were concerning for possible GI bleed, HTN, and upper abdominal pain. Etiologies such as esophagitis, peptic ulcer disease, gastritis, diverticulosis , AVM, coagulopathy, colitis, inflammatory bowel disease, malignancy,Leah- Lau tear,variceal bleed, epistaxis, fissure, hemorrhoids, as well as others were entertained. The patient presents to the emergency department complaining of symptoms concerning for an upper GI bleed. He also noted blood in his stool. He is on NSAIDs on a regular basis. He had moderate upper abdominal tenderness, mainly on the left side. He had severe hypertension which is unfortunately a recurrent issue for him. He states that he has taken all of his medications today. An IV was established. ECG performed. He was in a normal sinus rhythm. The patient had 20 mg Pepcid administered. Imaging was ordered. The patient had a heme-negative rectal examination. CT imaging did not reveal any evidence of colitis or intra-abdominal pathology. The patient's blood pressure improved without direct intervention but was still moderately hypertensive. His blood work was unremarkable. The patient had a consultation placed with GI. It was recommended to start him a PPI, became nothing by mouth except for meds after midnight, and likely set him up for a scope tomorrow morning. Internal medicine was consulted. The patient was evaluated in the Emergency Room for further management. Medication Reconcilliation Current Medication List: was personally reviewed by pr Blood Pressure Screening Patient's blood pressure: Elevated blood pressure Further evaluation by hospitalist. Consults Time Called: 1600 Consulting Physician: Dr. Girard [place] [facility] [place]ed Call: [address] Girard of . She recommended admission to general medicine and no PO after midnight for a scope tomorrow. Additional Consults: Time Called: 1605 Consulted Physician: Dr. Menendez [facility] [place]ed Call: 1609 Additional Comments: Discussed the patient's case with Dr. Menendez [place] [facility] [place] The patient will be evaluated for further treatment and disposition. Impression Primary Impression: GI bleed Additional Impressions: Upper abdominal pain Severe hypertension Scribe Attestation The scribe's documentation has been prepared under my direction and personally reviewed by me in its entirety. I confirm that the note above accurately reflects all work, treatment, procedures, and medical decision making performed by me. Departure Information Dispostion Being Evaluated By Hospitalist Referrals Bertrand Briceno M.D. (PCP) Patient Instructions My [facility] Problem Qualifiers
--- NOTE | 2017-01-25 13:03 | DIAGNOSTIC IMAGING REPORT ---
CHEST ONE VIEW PORTABLE CLINICAL HISTORY: 41 years-old Male presenting with EVALUATE GI BLEED. TECHNIQUE: Portable upright AP view of the chest was obtained. COMPARISON: 01/08/2017. FINDINGS: Atherosclerosis of aortic arch. Cardiac silhouette mildly enlarged, unchanged. Dominance of pulmonary vasculature. Lungs and pleural spaces clear. Osseous structures normal. Upper abdomen normal. IMPRESSION: 1. Cardiac megaly with volume overload. No jose pulmonary edema. Electronically signed by: Negro Schroeder M.D. 01/25/2017 1:02 PM Dictated Date/Time: 01/25/2017 1:00 PM
[2017-01-25 13:12] LABS: BASO % 0.1 %; BASO ABS # 0.01 K/uL (0-0.2); COMPLETE YES; EOS % 1.4 %; HEMATOCRIT 41.5 % (42-52); IG% 0.4 %; LYMPH % 30.2 %; LYMPH ABS # 2.44 K/uL (1.2-3.4); MEAN CELL VOLUME 84.3 fL (80-100); MEAN CORPUSCULAR HEMOGLOBIN 28.5 pg (25-34); MEAN CORPUSCULAR HGB CONC 33.7 g/dl (32-36); MEAN PLATELET VOLUME 10.2 fL (7.4-10.4); MONO % 7.4 %; NEUT % 60.5 %; PLATELET COUNT 143 K/uL (130-400); RED BLOOD COUNT 4.92 M/uL (4.7-6.1); WHITE BLOOD COUNT 8.07 K/uL (4.8-10.8)
[2017-01-25 13:22] LABS: PARTIAL THROMBOPLASTIN RATIO 1.1
[2017-01-25] MEDS ORDERED: OPTIRAY 320 IV PRN (13:30)
[2017-01-25 13:31] LABS: ALT/SGPT 24 U/L (12-78); AST/SGOT 13 U/L (15-37); BLOOD UREA NITROGEN 13 mg/dl (7-18); BUN/CREATININE RATIO 18.9 (10-20); CALCIUM 8.2 mg/dl (8.5-10.1); CARBON DIOXIDE 26 mmol/L (21-32); CHLORIDE 105 mmol/L (98-107); CREATININE 0.71 mg/dl (0.60-1.40); GLUCOSE 154 mg/dl (70-99); POTASSIUM 3.9 mmol/L (3.5-5.1); SODIUM 135 mmol/L (136-145)
[2017-01-25 13:39] LABS: ALKALINE PHOSPHATASE 82 U/L (45-117)
[2017-01-25] MEDS ORDERED: CHOL20007 PO (13:44)
[2017-01-25] MEDS ORDERED: DULO60CA44 PO (13:45)
[2017-01-25 14:42] LABS: MANUAL MICROSCOPIC REQUIRED? NO; REVIEW REQ? NO; URINE APPEARANCE CLEAR (CLEAR); URINE BILIRUBIN NEG (NEG); URINE COLOR YELLOW; URINE EPITHELIAL CELL AUTO >30 /lpf (0-5); URINE NITRITE NEG (NEG); URINE PH 7.5 (4.5-7.5); URINE SPECIFIC GRAVITY 1.023 (1.000-1.030); UROBILINOGEN NEG (NEG)
--- NOTE | 2017-01-25 14:56 | DIAGNOSTIC IMAGING REPORT ---
CT SCAN OF THE ABDOMEN AND PELVIS WITH IV CONTRAST CLINICAL HISTORY: GI bleeding. Epigastric and left upper quadrant abdominal pain. COMPARISON STUDY: Abdominal CT dated 01/19/2016. TECHNIQUE: Following the IV administration of 94 cc of Optiray 320, CT scan of the abdomen and pelvis is performed from the lung bases to the proximal femora. Images are reviewed in the axial, sagittal, and coronal planes. IV contrast was administered without complication. A dose lowering technique was utilized adhering to the principles of ALARA. The examination is degraded by large body habitus, and by streak artifact from the body wall abutting the CT gantry. The mid abdomen was scanned twice to include the entire anatomy. CT DOSE: 3129.95 mGy.cm FINDINGS: Lung bases: The heart is normal in size and without pericardial effusion. The lung bases are clear. There is a tiny hiatal hernia. Liver: The contrast-enhanced liver is enlarged, measuring 21 cm in length. The liver demonstrates diffusely diminished attenuation consistent with hepatic steatosis. There is no intrahepatic biliary ductal dilatation. The hepatic veins and portal veins are patent. Gallbladder: Surgically absent noting clips in the gallbladder fossa. Spleen: Normal in size and attenuation. Pancreas: Unremarkable. Adrenal glands: Unremarkable. Kidneys: The contrast enhanced kidneys are normal in size and without hydronephrosis. The kidneys enhance and excrete symmetrically. Abdominal vasculature: The abdominal aorta is normal in course and caliber noting scattered foci of atherosclerotic calcification. Bowel: The small bowel and colon are normal in course and caliber. The appendix is well-visualized and normal. Peritoneum: There is no intraperitoneal free air or abdominal ascites. Lymphadenopathy: None. Pelvic viscera: The bladder, prostate, and seminal vesicles are normal as visualized. Skeletal structures: There are bilateral pars defects at L5 with minimal anterolisthesis at L5-S1. Mild spondylotic changes noted. No lytic or blastic lesions are seen. IMPRESSION: 1. There are no acute infectious or inflammatory findings in the abdomen or pelvis. 2. Hepatomegaly and severe hepatic steatosis. 3. Additional findings as above. Electronically signed by: Abhilash Carpio M.D. 01/25/2017 2:54 PM Dictated Date/Time: 01/25/2017 2:49 PM
[2017-01-25] MEDS ORDERED: PANTOprazole INJ 80 MG in DEXTROSE 5% 100ML IV ONE (16:15)
[2017-01-25] MEDS ORDERED: PANTOprazole INJ 40 MG in DEXTROSE 5% 100ML IV SCH (16:30)
[2017-01-25] MEDS ORDERED: ACETAMINOPHEN 325 MG TAB PO PRN (16:30)
[2017-01-25] MEDS ORDERED: OXYCODONE HCL IR 5 MG TAB (IMMEDIATE RELEASE) PO PRN (16:30)
[2017-01-25] MEDS ORDERED: GLUCOSE 40% GEL 15 GM TUBE PO PRN (16:30)
[2017-01-25] MEDS ORDERED: GLUCAGON FOR INJ 1 MG VIAL SQ PRN (16:30)
[2017-01-25] MEDS ORDERED: ONDANSETRON INJ 2 MG/ML 2 ML VIAL IV PRN (16:30)
[2017-01-25] MEDS ORDERED: POLYETHYLENE (MIRALAX) 17 GM PACK PO PRN (16:30)
[2017-01-25] MEDS ORDERED: DEXTROSE 50% 50 ML SYR IV PRN (16:30)
[2017-01-25] MEDS ORDERED: GLUCOSE 10 TABS/TUBE PO PRN (16:30)
[2017-01-25] MEDS ORDERED: METOCLOPRAMIDE HCL INJ 5 MG/ML 2 ML VIAL IV STA (17:28)
[2017-01-25] MEDS ORDERED: [UNRECOGNIZED DRUG - OTHER] SC SCH (17:30)
[2017-01-25] MEDS ORDERED: INSULIN LISPRO SC SCH (17:30)
[2017-01-25] MEDS ORDERED: INSULIN LISPRO PROTAMINE SC SCH (17:30)
--- NOTE | 2017-01-25 17:32 | History and Physical ---
History & Physical Date & Time of Service: Jan 25, 2017 at 16:49 Chief Complaint: Blood In Stomach Primary Care Physician: Bertrand Briceno M.D. History of Present Illness This is a 41 yo M with PMHx of morbid obesity, DM II with neuropathy up to mid thighs, HTN, HLD, MARIELENA on Bipap 27/11, s/p fall with injury to the left foot using a boot for stability, on chronic prednisone since the fall for pain per his report, GERD, insomnia, depression and chronic low back pain who presents with acute GI discomfort in the epigastric region which started yesterday around 1:30 in the afternoon. He notes he has been nauseous and vomited dark red blood several times. He notes his last BM was yesterday and was dark brown with some bright red blood in the bowel. He denies dark and tarry stools. The patient has been taking combination of prednisone, mobic and ibuprofen daily, and reports that pantoprazole typically upsets his stomach. He admits to feeling lightheaded and dizzy, and currently is nauseous. Here in the ER the pts Hgb =14, INR = 1.0, glucose elevated. BP was initially 240/148 when he came to the ER, and has improved to 171/116. Past Medical/Surgical History Medical Problems: (1) accelerted HTN, obesity, DM (2) ADJUSTMENT DISORDER WITH DEPRESSED MOOD (3) ANXIETY STATE NOS (4) Benign hypertension (5) DEPRESSIVE DISORDER NEC (6) Diabetes mellitus type 2 (7) Diabetic peripheral neuropathy associated with type 2 diabetes mellitus (8) Loss of sensation (9) Morbid obesity with body mass index of 50.0-59.9 in adult (10) MRSA (11) Resistant hypertension (12) TOBACCO USE DISORDER (13) uvulectomy Social History Problems: (1) Learning disability Family History Diabetes mellitus FHx: asthma Social History Smoking Status: Former Smoker Drug Use: none Marital Status: Housing status: lives with family Occupational Status: employed Immunizations History of Influenza Vaccine: Yes Influenza Vaccine Date: Nov 16, 2011 History of Tetanus Vaccine?: Yes History of Pneumococcal: Unknown Pneumococcal Date: Aug 07, 2012 History of Hepatitis B Vaccine: No Multi-Drug Resistant Organisms History of MDRO: Yes Type of MDRO: MRSA Allergies Coded Allergies: Ceftriaxone (Verified Allergy, Severe, SHORTNESS OF BREATH, 01/25/17) Lidocaine (Verified Allergy, Severe, SHORTNESS OF BREATH, diaphoretic, hives, 01/25/17) pt unable to give further information on when reaction occured Procaine (Verified Allergy, Severe, SHORTNESS OF BREATH, diaphoretic, hives, 01/25/17) pt unable to give further information on when reaction occured Lisinopril (Verified Allergy, Intermediate, HIVES, 01/25/17) Albuterol (Verified Allergy, Mild, proair "trouble taking breaths", ) Amoxicillin (Verified Allergy, Unknown, ., 01/25/17) Clavulanic Acid (Verified Allergy, Unknown, ., 01/25/17) Acetaminophen (Verified Adverse Reaction, Unknown, NAUSEA, 01/25/17) Home Medications Scheduled Amlodipine (Norvasc), 10 MG PO QAM Aspirin (Aspirin Ec), 81 MG PO QAM Atorvastatin (Lipitor), 20 MG PO HS Canagliflozin (Invokana), 10 MG PO QAM Cholecalciferol (Vitamin D3), 1 TAB PO TID Dulaglutide (Trulicity), 1.5 MG SC WK Duloxetine Hcl (Cymbalta), 60 MG PO QAM Furosemide (Lasix), 40 MG PO QAM Gabapentin (Neurontin), 400 MG PO TID Hctz/Spironolactone 25MG/25MG (Aldactazide 25MG/25MG), 1 TAB PO BID Hydralazine Hcl (Apresoline), 100 MG PO TID Ibuprofen Tab (Motrin), 800 MG PO Q8H Insulin Lispro Protamine & Lis (Humalog Mix 50/50), 120 UNITS SC AMPM Labetalol Hcl (Labetalol Hcl), 200 MG PO BID Losartan Potassium (Cozaar), 100 MG PO QAM Meloxicam (Mobic), 15 MG PO HS Metformin Hcl (Glucophage), 1,000 MG PO BIDM Olmesartan Medoxomil (Benicar), 40 MG PO QAM Prednisone (Prednisone), 40 MG PO QAM Scheduled PRN Tramadol (Ultram), 50 MG PO Q8H PRN for Pain Review of Systems Constitutional: No fever, No chills, No sweats, No weight loss, No fatigue Eyes: No redness, No diplopia ENT: No nasal symptoms, No sore throat, No trouble swallowing Respiratory: No cough, No sputum, No wheezing, No shortness of breath, No dyspnea on exertion Cardiovascular: No chest pain, No edema, No palpitations Abdomen: + pain, + nausea, No vomiting, No diarrhea, No constipation Musculoskeletal: No joint pain, No swelling, No calf pain Genitourinary - Male: No hematuria, No dysuria Neurologic: + balance problems (s/p fall Left foot causes difficulty), + problem reported (neuropathy up to bilateral thighs), No numbness/tingling Psychiatric: + depression symptoms, + anxiety Endocrine: + fatigue Integumentary: No rash, No itch Physical Exam Vital Signs Date Time Temp Pulse Resp B/P (MAP) Pulse Ox O2 Delivery O2 Flow Rate FiO2 01/25/17 15:10 79 16 171/116 96 Room Air 01/25/17 13:51 174/110 01/25/17 13:41 83 19 96 01/25/17 13:39 100 01/25/17 13:03 97 Room Air 01/25/17 12:12 36.4 76 20 210/148 94 Room Air General Appearance: + mild distress, + obese (morbid) Head: normocephalic, atraumatic Eyes: PERRL, EOMI ENT: hearing grossly normal, pharynx normal Neck: supple, no JVD Respiratory/Chest: lungs clear, no respiratory distress, no accessory muscle use, + pertinent finding (On RA) Cardiovascular: regular rate, rhythm, normal peripheral pulses Abdomen/GI: normal bowel sounds, soft, + tenderness (in epigastric region with palpation) Back: normal inspection Extremities/Musculoskelatal: normal inspection, + pedal edema (mild pitting edema up to ankles bilaterally. Left foot without injury to skin, no lesions or abraisions. ) Neurologic/Psych: alert, normal reflexes, oriented x 3 Skin: normal color, warm/dry Diagnostics Laboratory Results Results Past 24 Hours Test 01/25/17 13:02 01/25/17 14:28 01/25/17 16:23 Range/Units White Blood Count 8.07 4.8-10.8 K/uL Red Blood Count 4.92 4.7-6.1 M/uL Hemoglobin 14.0 14.0-18.0 g/dL Hematocrit 41.5 42-52 % Mean Corpuscular Volume 84.3 80-100 fL Mean Corpuscular Hemoglobin 28.5 25-34 pg Mean Corpuscular Hemoglobin Concent 33.7 32-36 g/dl Platelet Count 143 130-400 K/uL Mean Platelet Volume 10.2 7.4-10.4 fL Neutrophils (%) (Auto) 60.5 % Lymphocytes (%) (Auto) 30.2 % Monocytes (%) (Auto) 7.4 % Eosinophils (%) (Auto) 1.4 % Basophils (%) (Auto) 0.1 % Neutrophils # (Auto) 4.88 1.4-6.5 K/uL Lymphocytes # (Auto) 2.44 1.2-3.4 K/uL Monocytes # (Auto) 0.60 0.11-0.59 K/uL Eosinophils # (Auto) 0.11 0-0.5 K/uL Basophils # (Auto) 0.01 0-0.2 K/uL RDW Standard Deviation 43.2 36.4-46.3 fL RDW Coefficient of Variation 14.0 11.5-14.5 % Immature Granulocyte % (Auto) 0.4 % Immature Granulocyte # (Auto) 0.03 0.00-0.02 K/uL Prothrombin Time 10.0 9.0-12.0 SECONDS Prothromb Time International Ratio 1.0 0.9-1.1 Activated Partial Thromboplast Time 27.7 21.0-31.0 SECONDS Partial Thromboplastin Ratio 1.1 Sodium Level 135 136-145 mmol/L Potassium Level 3.9 3.5-5.1 mmol/L Chloride Level 105 98-107 mmol/L Carbon Dioxide Level 26 21-32 mmol/L Anion Gap 4.0 3-11 mmol/L Blood Urea Nitrogen 13 7-18 mg/dl Creatinine 0.71 0.60-1.40 mg/dl Estimated GFR () 136.0 Estimated GFR (Non- 117.4 BUN/Creatinine Ratio 18.9 10-20 Random Glucose 154 70-99 mg/dl Calcium Level 8.2 8.5-10.1 mg/dl Total Bilirubin 0.4 0.2-1 mg/dl Direct Bilirubin 0.1 0-0.2 mg/dl Aspartate Amino Transf (AST/SGOT) 13 15-37 U/L Alanine Aminotransferase (ALT/SGPT) 24 12-78 U/L Alkaline Phosphatase 82 45-117 U/L Total Creatine Kinase 172 39-308 U/L Creatine Kinase MB 1.7 0.5-3.6 ng/ml Creatine Kinase MB Ratio 1.0 0-3.0 Troponin I < 0.015 0-0.045 ng/ml Total Protein 7.2 6.4-8.2 gm/dl Albumin 3.3 3.4-5.0 gm/dl Lipase 225 73-393 U/L Urine Color YELLOW Urine Appearance CLEAR CLEAR Urine pH 7.5 4.5-7.5 Urine Specific [place] 1.023 1.000-1.030 Urine Protein NEG NEG Urine Glucose (UA) NEG NEG Urine Ketones NEG NEG Urine Occult Blood NEG NEG Urine Nitrite NEG NEG Urine Bilirubin NEG NEG Urine Urobilinogen NEG NEG Urine Leukocyte Esterase TRACE NEG Urine WBC (Auto) 1-5 0-5 /hpf Urine RBC (Auto) 0-4 0-4 /hpf Urine Hyaline Casts (Auto) 1-5 0-5 /lpf Urine Epithelial Cells (Auto) >30 0-5 /lpf Urine Bacteria (Auto) NEG NEG Diagnostic Radiology CHEST ONE VIEW PORTABLE CLINICAL HISTORY: 41 years-old Male presenting with EVALUATE GI BLEED. TECHNIQUE: Portable upright AP view of the chest was obtained. COMPARISON: 01/08/2017. FINDINGS: Atherosclerosis of aortic arch. Cardiac silhouette mildly enlarged, unchanged. Dominance of pulmonary vasculature. Lungs and pleural spaces clear. Osseous structures normal. Upper abdomen normal. IMPRESSION: 1. Cardiac megaly with volume overload. No jose pulmonary edema. Electronically signed by: Negro Schroeder M.D. 01/25/2017 1:02 PM Dictated Date/Time: 01/25/2017 1:00 PM The status of this report is Signed. CLINICAL HISTORY: GI bleeding. Epigastric and left upper quadrant abdominal pain. COMPARISON STUDY: Abdominal CT dated 01/19/2016. TECHNIQUE: Following the IV administration of 94 cc of Optiray 320, CT scan of the abdomen and pelvis is performed from the lung bases to the proximal femora. Images are reviewed in the axial, sagittal, and coronal planes. IV contrast was administered without complication. A dose lowering technique was utilized adhering to the principles of ALARA. The examination is degraded by large body habitus, and by streak artifact from the body wall abutting the CT gantry. The mid abdomen was scanned twice to include the entire anatomy. CT DOSE: 3129.95 mGy.cm FINDINGS: Lung bases: The heart is normal in size and without pericardial effusion. The lung bases are clear. There is a tiny hiatal hernia. Liver: The contrast-enhanced liver is enlarged, measuring 21 cm in length. The liver demonstrates diffusely diminished attenuation consistent with hepatic steatosis. There is no intrahepatic biliary ductal dilatation. The hepatic veins and portal veins are patent. Gallbladder: Surgically absent noting clips in the gallbladder fossa. Spleen: Normal in size and attenuation. Pancreas: Unremarkable. Adrenal glands: Unremarkable. Kidneys: The contrast enhanced kidneys are normal in size and without hydronephrosis. The kidneys enhance and excrete symmetrically. Abdominal vasculature: The abdominal aorta is normal in course and caliber noting scattered foci of atherosclerotic calcification. Bowel: The small bowel and colon are normal in course and caliber. The appendix is well-visualized and normal. Peritoneum: There is no intraperitoneal free air or abdominal ascites. Lymphadenopathy: None. Pelvic viscera: The bladder, prostate, and seminal vesicles are normal as visualized. Skeletal structures: There are bilateral pars defects at L5 with minimal anterolisthesis at L5-S1. Mild spondylotic changes noted. No lytic or blastic lesions are seen. IMPRESSION: 1. There are no acute infectious or inflammatory findings in the abdomen or pelvis. 2. Hepatomegaly and severe hepatic steatosis. 3. Additional findings as above. Electronically signed by: Abhilash Carpio M.D. 01/25/2017 2:54 PM Dictated Date/Time: 01/25/2017 2:49 PM The status of this report is Signed. EKG Normal sinus rhythm with sinus arrhythmia Normal ECG When compared with ECG of 08-JAN-2017 08:20, QRS axis Shifted right T wave inversion now evident in Inferior leads T wave inversion no longer evident in Lateral leads Vent. rate 81 BPM [place] interval 148 ms QRS duration 100 ms QT/QTc 394/457 ms P-R-T axes 53 71 2 Impression Assessment and Plan (1) GI bleed (2) Epigastric pain (3) Vomiting Assessment & Plan: - Admit to tele for observation - Hgb stable at 14, follow am labs - GI bleed likely secondary to use of mobic, prednisone and ibuprofen 800 mg TID daily - on prednisone for pain per patient report, would wean off this if at all possible. - GI consulted - Dr. Nam - Planning for EUS tomorrow - PPI gtt in the ER, will switch to IV 40 mg BID (4) Hypertensive emergency Assessment & Plan: - BP improving at this time - Continue home meds including olmesartan 40 mg daily, lebatolol 200 mg BID, norvasc 10 mg daily, hydraalazine 100 mg Q8H, asa 81 mg daily, atorvastatin 20 mg QHS, lasix 40 mg daily - Appears he is also on losartan but this is the same class as olmesartan, so will hold losartan for now and watch. (5) Diabetes mellitus type 2 Assessment & Plan: - Check A1C with morning labs - ISS with accuchecks - Hold metformin since received contrast with CT abd/pelvis - Continue on Humalog 50/50 mix - Took last dose of invokana yesterday 01/24 as regularly scheduled. (6) Diabetic peripheral neuropathy associated with type 2 diabetes mellitus (7) TOBACCO USE DISORDER Assessment & Plan: - Cessation encouraged (8) DEPRESSIVE DISORDER NEC Assessment & Plan: - Continue on cymbalta and gabapentin 400 mg TID (9) ANXIETY STATE NOS (10) ADJUSTMENT DISORDER WITH DEPRESSED MOOD Level of Care Telemetry Resuscitation Status FULL RESUSCITATION VTE Prophylaxis VTE Risk Assessment Done? Y/N: Yes Risk Level: Low Given or contraindicated: T.E.D. Stockings, SCD's
[2017-01-25] MEDS ORDERED: METFORMIN HCL 500 MG TAB PO SCH (18:00)
[2017-01-25] MEDS ORDERED: IV FLUIDS COMPLETED PRN (19:30)
[2017-01-25 19:43] VITALS: BP 163/103; PULSE 78; TEMP 36.6; O2SAT 95; Ht 170.2 cm; Wt 164.2 kg
[2017-01-25] MEDS: INSULIN ASPART 100 UNITS/ML 3 ML PEN SC SCH (21:00)
[2017-01-25] MEDS ORDERED: ATORVASTATIN 20 MG TAB PO SCH (21:00)
[2017-01-25] MEDS: LABETALOL HCL 100 MG TAB PO SCH (21:10)
[2017-01-25] MEDS: GABAPENTIN 400 MG CAP PO SCH (21:10)
[2017-01-25] MEDS: SPIRONOLACTONE/HCTZ 25-25 PO SCH (21:10)
[2017-01-25] MEDS: INSULIN GLARGINE SOLOSTAR 100 UNITS/ML 3 ML PEN SC SCH (22:13)
[2017-01-25] MEDS: TRAMADOL HCL 50 MG TAB PO PRN (23:52)
[2017-01-26 00:32] VITALS: BP 150/85; PULSE 92; TEMP 36.4; O2SAT 97
[2017-01-26] MEDS ORDERED: NURSING VERBAL MED ORDER ONE (03:15)
[2017-01-26] MEDS ORDERED: CALCIUM CARBONATE 500 MG CHEWABLE PO STA (03:31)
[2017-01-26 03:48] VITALS: BP 159/100; PULSE 101; TEMP 36.4; O2SAT 91
[2017-01-26 06:39] LABS: BASO % 0.1 %; BASO ABS # 0.01 K/uL (0-0.2); COMPLETE YES; EOS % 1.7 %; HEMATOCRIT 41.6 % (42-52); IG% 0.4 %; LYMPH % 24.8 %; MEAN CELL VOLUME 83.9 fL (80-100); MEAN CORPUSCULAR HEMOGLOBIN 28.6 pg (25-34); MEAN CORPUSCULAR HGB CONC 34.1 g/dl (32-36); MEAN PLATELET VOLUME 10.2 fL (7.4-10.4); MONO % 7.2 %; NEUT % 65.8 %; PLATELET COUNT 142 K/uL (130-400); RED BLOOD COUNT 4.96 M/uL (4.7-6.1); WHITE BLOOD COUNT 7.25 K/uL (4.8-10.8)
[2017-01-26 06:47] LABS: PROTHROMBIN TIME (PATIENT) 10.2 SECONDS (9.0-12.0)
[2017-01-26] MEDS: INSULIN ASPART 100 UNITS/ML 3 ML PEN SC SCH ×2 (07:00→11:44)
[2017-01-26 07:04] LABS: ESTIMATED AVERAGE GLUCOSE 174 mg/dl; HA1C FLAG Normal (Normal)
[2017-01-26 07:15] LABS: BUN/CREATININE RATIO 12.1 (10-20); CALCIUM 8.4 mg/dl (8.5-10.1); CREATININE 0.74 mg/dl (0.60-1.40); POTASSIUM 3.9 mmol/L (3.5-5.1)
[2017-01-26 07:18] LABS: CHOLESTEROL/HDL RATIO 3.3
[2017-01-26 07:45] VITALS: BP 150/108; PULSE 83; TEMP 36.7; O2SAT 94
[2017-01-26 08:00] VITALS: O2SAT 94
[2017-01-26] MEDS: LABETALOL HCL 100 MG TAB PO SCH (08:06)
[2017-01-26] MEDS: GABAPENTIN 400 MG CAP PO SCH (08:07)
[2017-01-26] MEDS: SPIRONOLACTONE/HCTZ 25-25 PO SCH (08:10)
[2017-01-26] MEDS: INSULIN GLARGINE SOLOSTAR 100 UNITS/ML 3 ML PEN SC SCH (08:44)
[2017-01-26] MEDS ORDERED: PANTOprazole INJ 40 MG in SYRINGE 0 ML IV SCH (09:00)
[2017-01-26] MEDS ORDERED: FUROSEMIDE 40 MG TAB PO SCH (09:00)
[2017-01-26] MEDS ORDERED: DULOXETINE HCL 60 MG CAP PO SCH (09:00)
[2017-01-26] MEDS ORDERED: ASPIRIN 81 MG ECTAB PO SCH (09:00)
[2017-01-26] MEDS ORDERED: LOSARTAN POTASSIUM 50 MG TAB PO SCH (09:00)
[2017-01-26] MEDS ORDERED: AMLODIPINE BESYLATE 5 MG TAB PO SCH (09:00)
[2017-01-26] MEDS ORDERED: OLMESARTAN MEDOXOMIL 40 MG TAB PO SCH (09:00)
--- NOTE | 2017-01-26 10:05 | Gastrointestinal Consultation ---
Gastrointestinal Consultation Date of Consultation: Jan 26, 2017 Attending Physician: Yaneth York PA-C Consulting Physician: Dr. Rosenthal/CM Farrar History of Present Illness Patient is a 41 year old male known to our office for a history of GERD, dysphagia and chronic diarrhea in the setting of poorly controlled diabetes. He was last seen in the office approximately 2 years ago. At that time, he had undergone an evaluation of symptoms including an EGD which was normal and colonoscopy which was unremarkable with the exception of hemorrhoids. More recently, the patient has sustained a fall from review of records and has been taking prescription Meloxicam and Prednisone as well as [id number] Ibuprofen and aspirin. He presented to the ER yesterday after a sudden onset of abdominal pain in the epigastric region with radiation into the bilateral upper quadrants. He is currently rating pain as 7/10 in intensity. Patient has also reported hematemesis and rectal bleeding. Patient has not been taking PPI therapy as an outpatient. On arrival, his H&H was noted to be 14.0/41.5 with repeat this am at 14.2/41.6. Renal panel reviewed and normal. CT a/p with IV enhancement was without any acute findings. He has been kept NPO and started on Protonix IV BID. Past Medical/Surgical History Medical Problems: (1) Allergic reaction Status: Acute (2) Anemia Status: Acute (3) Anterior chest wall pain Status: Acute (4) Benign hypertension Status: Chronic (5) Blind right eye Status: Acute (6) Broken suture Status: Acute (7) Cellulitis of right foot Status: Acute (8) Chest pain Status: Acute (9) Chest wall pain Status: Acute (10) Costochondritis Status: Acute (11) Dermatitis Status: Acute (12) Diabetes mellitus with hyperglycemia Status: Acute (13) Diffuse abdominal pain Status: Acute (14) GI bleed Status: Acute (15) Headache Status: Acute (16) Hypertensive urgency Status: Acute (17) Hypocalcemia Status: Acute (18) Hypomagnesemia Status: Acute (19) Jaw pain Status: Acute (20) Knee strain Status: Acute (21) Leg pain Status: Acute (22) Leg pain, left Status: Acute (23) Nasal sinus congestion Status: Acute (24) Neck pain Status: Acute (25) Pain, dental Status: Acute (26) Post-nasal drip Status: Acute (27) Rash Status: Acute (28) Rectal bleeding Status: Acute (29) Right leg swelling Status: Acute (30) Severe hypertension Status: Acute (31) Shortness of breath Status: Acute (32) Shoulder pain, right Status: Acute (33) Sinusitis Status: Acute (34) Sore throat Status: Acute (35) Swelling of lower extremity Status: Acute (36) Upper abdominal pain Status: Acute (37) Vomiting Status: Acute Past Medical History: 1. Morbid obesity 2. HTN 3. Poorly controlled diabetes with neuropathy 4. Anxiety 5. Adjustment disorder with depressed mood 6. MRSA 7. Tobacco use 8. GERD 9. Carpal tunnel syndrome 10. Asthma 11. Obstructive sleep apnea 12. Cluster headache 13. Dyslipidemia 14. Gastroparesis 15. Insomnia Past Surgical History: 1. Tonsillectomy 2. Cholecystectomy 3. EGD 4. Colonoscopy 5. Uvulectomy Family History Diabetes mellitus FHx: asthma Negative for GI malignancy or IBD Social History Smoking Status: Former Smoker Alcohol Use: none Drug Use: none Marital Status: Housing Status: lives with family Allergies Coded Allergies: Ceftriaxone (Verified Allergy, Severe, SHORTNESS OF BREATH, 01/25/17) Lidocaine (Verified Allergy, Severe, SHORTNESS OF BREATH, diaphoretic, hives, 01/25/17) pt unable to give further information on when reaction occured Procaine (Verified Allergy, Severe, SHORTNESS OF BREATH, diaphoretic, hives, 01/25/17) pt unable to give further information on when reaction occured Lisinopril (Verified Allergy, Intermediate, HIVES, 01/25/17) Albuterol (Verified Allergy, Mild, proair "trouble taking breaths", ) Amoxicillin (Verified Allergy, Unknown, ., 01/25/17) Clavulanic Acid (Verified Allergy, Unknown, ., 01/25/17) Acetaminophen (Verified Adverse Reaction, Unknown, NAUSEA, 01/25/17) Current Medications Home Meds and Scripts Medications Dose Route/Sig Max Daily Dose Days Date Category Dose Instructions Cymbalta (Duloxetine Hcl) 60 Mg Cap 60 Mg PO QAM 01/25/17 Reported Vitamin D3 (Cholecalciferol) 2,000 Unit Tab 1 Tab PO TID 01/25/17 Reported Ultram (Tramadol HCl) 50 Mg Tab 50 Mg PO Q8H PRN 01/25/17 Reported Aldactazide 25MG/25MG (HCTZ/Spironolactone) 1 Tab Tab 1 Tab PO BID 01/25/17 Reported Prednisone 20 Mg Tab 40 Mg PO QAM 01/25/17 Reported Benicar (Olmesartan Medoxomil) 40 Mg Tab 40 Mg PO QAM 01/25/17 Reported Invokana (Canagliflozin) 100 Mg Tab 10 Mg PO QAM 01/25/17 Reported Motrin (Ibuprofen) 800 Mg Tab 800 Mg PO Q8H 01/25/17 Reported Aspirin Ec (Aspirin) 81 Mg Tab 81 Mg PO QAM 01/25/17 Reported Humalog Mix 50/50 (Insulin Lispro Protamine & Lis) 1 Inj Inj 120 Units SC AMPM 01/08/17 Reported DOCTOR/PHARMACIST: PLEASE SEE NOTES FORMERLY [facility] SAYS THEY HAVEN 'T FILLED THIS SINCE AUGUST. FORMERLY [facility] SAYS PATIENT "DOES HIS THING". PATIENT SAYS [employer] DID JUST FILL THIS HUMALOG. FORMERLY [facility] SAYS NO. Trulicity (Dulaglutide) 1.5 Mg/0.5 Ml Inj 1.5 Mg SC WK 01/08/17 Reported WEDNESDAYS Norvasc (Amlodipine Besylate) 10 Mg Tab 10 Mg PO QAM 01/08/17 Reported Cozaar (Losartan Potassium) 100 Mg Tab 100 Mg PO QAM 01/08/17 Reported Glucophage (Metformin Hcl) 500 Mg Tab 1,000 Mg PO BIDM 01/08/17 Reported TWO 500 MG TABLETS TWICE DAILY WITH MEALS. Lipitor (Atorvastatin Calcium) 20 Mg Tab 20 Mg PO HS 01/08/17 Reported Apresoline (Hydralazine Hcl) 100 Mg Tab 100 Mg PO TID 01/08/17 Reported Neurontin (Gabapentin) 400 Mg Cap 400 Mg PO TID 01/08/17 Reported Mobic (Meloxicam) 15 Mg Tab 15 Mg PO HS 01/08/17 Reported FOR FOOT PAIN Lasix (Furosemide) 40 Mg Tab 40 Mg PO QAM 01/08/17 Reported Labetalol Hcl 100 Mg Tab 200 Mg PO BID 01/08/17 Reported Review of Systems Constitutional: + fatigue Eyes: No problem reported ENT: No problem reported Respiratory: No cough, No shortness of breath Cardiac: No chest pain Abdomen: + see HPI Musculoskeletal: + joint pain Male : No problem reported Psych: No problem reported Skin: No problem reported Physical Exam Date Time Temp Pulse Resp B/P (MAP) Pulse Ox O2 Delivery O2 Flow Rate FiO2 01/26/17 08:00 94 Room Air 01/26/17 07:45 36.7 83 12 150/108 (122) 94 Room Air 01/26/17 04:00 Room Air 01/26/17 03:48 36.4 101 18 159/100 (119) 91 01/26/17 00:32 36.4 92 18 150/85 (106) 97 Room Air 01/25/17 23:59 Room Air 01/25/17 19:43 36.6 78 18 163/103 95 Room Air 01/25/17 17:40 66 18 149/112 98 Room Air 01/25/17 16:18 75 16 162/113 98 Room Air 01/25/17 15:10 79 16 171/116 96 Room Air 01/25/17 13:51 174/110 01/25/17 13:41 83 19 96 01/25/17 13:39 100 01/25/17 13:03 97 Room Air 01/25/17 12:12 36.4 76 20 210/148 94 Room Air General Appearance: no apparent distress Eyes: EOMI ENT: hearing grossly normal Neck: supple Respiratory/Chest: lungs clear, normal breath sounds, no respiratory distress Cardiovascular: regular rate, rhythm Abdomen: normal bowel sounds, soft, + tenderness (epigastric) Extremities: + swelling Neurologic/Psych: alert, normal mood/affect, oriented x 3 Skin: warm/dry Laboratory Results Last 24 Hours Test 01/25/17 13:02 01/25/17 14:28 01/25/17 19:37 01/26/17 06:09 White Blood Count 8.07 K/uL 7.25 K/uL Red Blood Count 4.92 M/uL 4.96 M/uL Hemoglobin 14.0 g/dL 14.2 g/dL Hematocrit 41.5 % 41.6 % Mean Corpuscular Volume 84.3 fL 83.9 fL Mean Corpuscular Hemoglobin 28.5 pg 28.6 pg Mean Corpuscular Hemoglobin Concent 33.7 g/dl 34.1 g/dl Platelet Count 143 K/uL 142 K/uL Mean Platelet Volume 10.2 fL 10.2 fL Neutrophils (%) (Auto) 60.5 % 65.8 % Lymphocytes (%) (Auto) 30.2 % 24.8 % Monocytes (%) (Auto) 7.4 % 7.2 % Eosinophils (%) (Auto) 1.4 % 1.7 % Basophils (%) (Auto) 0.1 % 0.1 % Neutrophils # (Auto) 4.88 K/uL 4.77 K/uL Lymphocytes # (Auto) 2.44 K/uL 1.80 K/uL Monocytes # (Auto) 0.60 K/uL 0.52 K/uL Eosinophils # (Auto) 0.11 K/uL 0.12 K/uL Basophils # (Auto) 0.01 K/uL 0.01 K/uL RDW Standard Deviation 43.2 fL 43.0 fL RDW Coefficient of Variation 14.0 % 14.1 % Immature Granulocyte % (Auto) 0.4 % 0.4 % Immature Granulocyte # (Auto) 0.03 K/uL 0.03 K/uL Prothrombin Time 10.0 SECONDS 10.2 SECONDS Prothromb Time International Ratio 1.0 1.0 Activated Partial Thromboplast Time 27.7 SECONDS Partial Thromboplastin Ratio 1.1 Sodium Level 135 mmol/L 134 mmol/L Potassium Level 3.9 mmol/L 3.9 mmol/L Chloride Level 105 mmol/L 103 mmol/L Carbon Dioxide Level 26 mmol/L 26 mmol/L Anion Gap 4.0 mmol/L 5.0 mmol/L Blood Urea Nitrogen 13 mg/dl 9 mg/dl Creatinine 0.71 mg/dl 0.74 mg/dl Estimated GFR () 136.0 133.7 Estimated GFR (Non- 117.4 115.4 BUN/Creatinine Ratio 18.9 12.1 Random Glucose 154 mg/dl 154 mg/dl Calcium Level 8.2 mg/dl 8.4 mg/dl Total Bilirubin 0.4 mg/dl Direct Bilirubin 0.1 mg/dl Aspartate Amino Transf (AST/SGOT) 13 U/L Alanine Aminotransferase (ALT/SGPT) 24 U/L Alkaline Phosphatase 82 U/L Total Creatine Kinase 172 U/L Creatine Kinase MB 1.7 ng/ml Creatine Kinase MB Ratio 1.0 Troponin I < 0.015 ng/ml Total Protein 7.2 gm/dl Albumin 3.3 gm/dl Lipase 225 U/L Urine Color YELLOW Urine Appearance CLEAR Urine pH 7.5 Urine Specific [place] 1.023 Urine Protein NEG Urine Glucose (UA) NEG Urine Ketones NEG Urine Occult Blood NEG Urine Nitrite NEG Urine Bilirubin NEG Urine Urobilinogen NEG Urine Leukocyte Esterase TRACE Urine WBC (Auto) 1-5 /hpf Urine RBC (Auto) 0-4 /hpf Urine Hyaline Casts (Auto) 1-5 /lpf Urine Epithelial Cells (Auto) >30 /lpf Urine Bacteria (Auto) NEG Bedside Glucose 125 mg/dl Est Creatinine Clear Calc Drug Dose 197.7 ml/min Estimated Average Glucose 174 mg/dl Hemoglobin A1c 7.7 % Triglycerides Level 112 mg/dl Cholesterol Level 138 mg/dl HDL Cholesterol 42 mg/dl LDL Cholesterol, Calculated 74 mg/dl VLDL Cholesterol, Calculated 22 mg/dl Cholesterol/HDL Ratio 3.3 Test 01/26/17 06:33 Bedside Glucose 150 mg/dl Impression Patient is a 41 year old male with a history of GERD and gastroparesis s/p fall with heavy use of NSAIDs in the setting of aspirin and corticosteroids with epigastric pain and hematemesis. Diff dx: GERD vs gastritis vs PUD vs Leah-Lau tear vs esophagitis vs other. Patient's hemoglobin and renal pain is normal favoring against a brisk bleed. Plan 1. Recommend continued Pantoprazole 40 mg BID. 2. Add Carafate 1 g ACHS x 10 days. 3. Avoid all NSAIDs. 4. No plan for emergent EGD as he remains hemodynamically stable. 5. Outpatient work up with EGD can be considered if symptoms persist. Thank you for allowing us to participate in the care of this patient. If you have any questions or concerns, please do not hesitate to contact us. Patient was discharged prior to my evaluation Agree with CM Farrar as above
[2017-01-26] MEDS ORDERED: PRED10TA PO (11:05)
[2017-01-26] MEDS ORDERED: CRFUDL PO (11:05)
[2017-01-26] MEDS ORDERED: PRT40 PO (11:05)
--- NOTE | 2017-01-26 11:20 | Discharge Instructions ---
Discharge Instructions Date of Service Jan 26, 2017. Admission Reason for Admission: Gi Bleed Discharge Discharge Diagnosis / Problem: GI bleed likely due to NSAID induced gastritis Discharge Goals Goal(s): Decrease discomfort, Increase independence Activity Recommendations Activity Limitations: resume your previous activity . Instructions / Follow-Up Instructions / Follow-Up Please taper off of your prednisone with the following schedule: 30 mg daily x 2 days 20 mg daily x 2 days 10 mg daily x 2 days Please follow up with your primary care provider in about a week and follow with GI for outpatient endoscopy. Our nurse navigator will arrange for these appointments for you. Current Hospital Diet Patient's current hospital diet: Diabetes Type 2 Diet, Low Fiber Diet, Low Fat Diet Discharge Diet Recommended Diet: Diabetes Type 2 Diet, Low Fiber Diet, Low Fat Diet Procedures Procedures Performed: Abd/pelvis CT CXR Pending Studies Studies pending at discharge: no Laboratory Results Hemoglobin A1c Test 01/26/17 06:09 Range/Units Estimated Average Glucose 174 mg/dl Hemoglobin A1c 7.7 H 4.5-5.6 % Lipid Panel Test 01/26/17 06:09 Range/Units Triglycerides Level 112 0-150 mg/dl Cholesterol Level 138 0-200 mg/dl HDL Cholesterol 42 mg/dl Cholesterol/HDL Ratio 3.3 LDL Cholesterol, Calculated 74 mg/dl Medical Emergencies . Who to Call and When: Medical Emergencies: If at any time you feel your situation is an emergency, please call 911 immediately. . Non-Emergent Contact Non-Emergency issues call your: Primary Care Provider Call Non-Emergent contact if: you have any medication questions . . "Provider Documentation" section prepared by Carmen Campos. . VTE Core Measure Inpt VTE Proph given/why not?: Malena Reynolds, SCD's
[2017-01-26] MEDS: TRAMADOL HCL 50 MG TAB PO PRN (11:24)
[2017-01-26 11:29] VITALS: BP 150/108; PULSE 83; TEMP 36.7; O2SAT 94
[2017-01-26 11:41] VITALS: BP 115/76; PULSE 88; TEMP 36.7; O2SAT 94
[2017-01-26] MEDS ORDERED: SUCRALFATE 1 GM/10 ML UDC PO SCH (13:00)
--- NOTE | 2017-01-26 15:11 | Discharge Summary ---
Discharge Summary Date of Service Jan 26, 2017. Discharge Summary Admission Date: Jan 25, 2017 at 17:02 Discharge Date: Jan 26, 2017 Discharge Disposition: Home Principal Diagnosis: GI Bleed, NSAID induced gastritis Problems/Secondary Diagnoses: (1) Benign hypertension Status: Chronic Immunizations: Have You Had Influenza Vaccine: Yes Influenza Vaccine Date: Nov 16, 2011 History of Tetanus Vaccine?: Yes History of Pneumococcal: Unknown Pneumococcal Date: Aug 07, 2012 History of Hepatitis B Vaccine: No Procedures: CT SCAN OF THE ABDOMEN AND PELVIS WITH IV CONTRAST CLINICAL HISTORY: GI bleeding. Epigastric and left upper quadrant abdominal pain. COMPARISON STUDY: Abdominal CT dated 01/19/2016. TECHNIQUE: Following the IV administration of 94 cc of Optiray 320, CT scan of the abdomen and pelvis is performed from the lung bases to the proximal femora. Images are reviewed in the axial, sagittal, and coronal planes. IV contrast was administered without complication. A dose lowering technique was utilized adhering to the principles of ALARA. The examination is degraded by large body habitus, and by streak artifact from the body wall abutting the CT gantry. The mid abdomen was scanned twice to include the entire anatomy. CT DOSE: 3129.95 mGy.cm FINDINGS: Lung bases: The heart is normal in size and without pericardial effusion. The lung bases are clear. There is a tiny hiatal hernia. Liver: The contrast-enhanced liver is enlarged, measuring 21 cm in length. The liver demonstrates diffusely diminished attenuation consistent with hepatic steatosis. There is no intrahepatic biliary ductal dilatation. The hepatic veins and portal veins are patent. Gallbladder: Surgically absent noting clips in the gallbladder fossa. Spleen: Normal in size and attenuation. Pancreas: Unremarkable. Adrenal glands: Unremarkable. Kidneys: The contrast enhanced kidneys are normal in size and without hydronephrosis. The kidneys enhance and excrete symmetrically. Abdominal vasculature: The abdominal aorta is normal in course and caliber noting scattered foci of atherosclerotic calcification. Bowel: The small bowel and colon are normal in course and caliber. The appendix is well-visualized and normal. Peritoneum: There is no intraperitoneal free air or abdominal ascites. Lymphadenopathy: None. Pelvic viscera: The bladder, prostate, and seminal vesicles are normal as visualized. Skeletal structures: There are bilateral pars defects at L5 with minimal anterolisthesis at L5-S1. Mild spondylotic changes noted. No lytic or blastic lesions are seen. IMPRESSION: 1. There are no acute infectious or inflammatory findings in the abdomen or pelvis. 2. Hepatomegaly and severe hepatic steatosis. 3. Additional findings as above. CHEST ONE VIEW PORTABLE CLINICAL HISTORY: 41 years-old Male presenting with EVALUATE GI BLEED. TECHNIQUE: Portable upright AP view of the chest was obtained. COMPARISON: 01/08/2017. FINDINGS: Atherosclerosis of aortic arch. Cardiac silhouette mildly enlarged, unchanged. Dominance of pulmonary vasculature. Lungs and pleural spaces clear. Osseous structures normal. Upper abdomen normal. IMPRESSION: 1. Cardiac megaly with volume overload. No jose pulmonary edema. Medication Reconciliation New Medications: Prednisone (Prednisone) 10 Mg Tab 10 MG PO DAILY for 6 Days, #6 TAB Steroid taper 30 mg x 2 days 20 mg x 2 days 10 mg x 2 days Pantoprazole (Pantoprazole Sodium) 40 Mg Tab 40 MG PO BID for 30 Days, #60 TAB Sucralfate (Sucralfate) 1 Gm/10 Ml Susp 1 GM PO QID for 30 Days, #120 DOSE Continued Medications: Amlodipine (Norvasc) 10 Mg Tab 10 MG PO QAM Aspirin (Aspirin Ec) 81 Mg Tab 81 MG PO QAM Atorvastatin (Lipitor) 20 Mg Tab 20 MG PO HS Canagliflozin (Invokana) 100 Mg Tab 10 MG PO QAM Cholecalciferol (Vitamin D3) 2,000 Unit Tab 1 TAB PO TID Dulaglutide (Trulicity) 1.5 Mg/0.5 Ml Inj 1.5 MG SC WK WEDNESDAYS Duloxetine Hcl (Cymbalta) 60 Mg Cap 60 MG PO QAM Furosemide (Lasix) 40 Mg Tab 40 MG PO QAM Gabapentin (Neurontin) 400 Mg Cap 400 MG PO TID Hctz/Spironolactone 25MG/25MG (Aldactazide 25MG/25MG) 1 Tab Tab 1 TAB PO BID Hydralazine Hcl (Apresoline) 100 Mg Tab 100 MG PO TID Insulin Lispro Protamine & Lis (Humalog Mix 50/50) 1 Inj Inj 120 UNITS SC AMPM DOCTOR/PHARMACIST: PLEASE SEE NOTES [facility] SAYS THEY HAVEN'T FILLED THIS SINCE AUGUST. [facility] SAYS PATIENT "DOES HIS THING". PATIENT SAYS [employer]UMBS DID JUST FILL THIS HUMALOG. [facility] SAYS NO. Labetalol Hcl (Labetalol Hcl) 100 Mg Tab 200 MG PO BID Metformin Hcl (Glucophage) 500 Mg Tab 1000 MG PO BIDM TWO 500 MG TABLETS TWICE DAILY WITH MEALS. Olmesartan Medoxomil (Benicar) 40 Mg Tab 40 MG PO QAM Tramadol (Ultram) 50 Mg Tab 50 MG PO Q8H PRN for Pain Discontinued Medications: Ibuprofen Tab (Motrin) 800 Mg Tab 800 MG PO Q8H Losartan Potassium (Cozaar) 100 Mg Tab 100 MG PO QAM Meloxicam (Mobic) 15 Mg Tab 15 MG PO HS FOR FOOT PAIN Prednisone (Prednisone) 20 Mg Tab 40 MG PO QAM Discharge Exam ROS Constitutional: no chills, aches, sweats or fever Respiratory: no sob,cough, sputum, or wheezing Cardiac: no chest pain, palpitations, edema, orthopnea or lightheadedness GI: mild epigastric abdominal pain,no nausea, vomiting, diarrhea or constipation : no dysuria or hesitancy Extremities: no joint pain or weakness Skin: no rash PE General: no distress Eyes: normal inspection, PERLL Respiratory: chest non tender, clear to auscultation, normal breath sounds, no respiratory distress, no accessory muscle use Cardiac: regular rate and rhythm, no rub or gallop, no murmur, no edema, no jvd GI/: active bowel sounds, no abd pain or tenderness, soft, non distended Extremities: normal range of motion, normal strength, non tender Neuro/Psych: alert and oriented x 3, normal mood and affect Skin: normal color, dry PE General: no distress Eyes: normal inspection, PERLL Respiratory: chest non tender, clear to auscultation, normal breath sounds, no respiratory distress, no accessory muscle use Cardiac: regular rate and rhythm, no rub or gallop, no murmur, no edema, no jvd GI/: active bowel sounds, no abd pain or tenderness, soft, non distended Extremities: normal range of motion, normal strength, non tender Neuro/Psych: alert and oriented x 3, normal mood and affect Skin: normal color, dry Hospital Course (1) GI bleed (2) Epigastric pain (3) Vomiting - patient on tele overnight - Hgb stable at 14 - GI bleed likely secondary to use of mobic, prednisone and ibuprofen 800 mg TID daily - taper down for home, discontinued NSAIDs - GI consulted - EUS outpatient - protonix bid and sucralfate ac for home (4) Hypertensive emergency - BP improving at this time - Continue home meds including olmesartan 40 mg daily, lebatolol 200 mg BID, norvasc 10 mg daily, hydraalazine 100 mg Q8H, asa 81 mg daily, atorvastatin 20 mg QHS, lasix 40 mg daily - Appears he is also on losartan but this is the same class as olmesartan, discontinued losartan (5) Diabetes mellitus type 2 - A1c 7.7 - ISS with accuchecks - Held metformin since received contrast with CT abd/pelvis - Continue on Humalog 50/50 mix - Took last dose of invokana yesterday 01/24 as regularly scheduled. (6) Diabetic peripheral neuropathy associated with type 2 diabetes mellitus (7) TOBACCO USE DISORDER - Cessation encouraged (8) DEPRESSIVE DISORDER NEC - Continue on cymbalta and gabapentin 400 mg TID (9) ANXIETY STATE NOS (10) ADJUSTMENT DISORDER WITH DEPRESSED MOOD RETAIL CONSULTANT Physician Supervision Note: I interviewed and examined the patient. Discussed with Carmen Campos NP and agree with findings and plan as documented in the note. Any exceptions or clarifications are listed here: None Patient in no further problems his hemoglobin and not reduce GI medicine did not feel he required urgent endoscopy they however did recommend he stop any GI irritating medications, go home on a proton pump inhibitor, and follow-up with his primary care to schedule an outpatient endoscopy. The patient and his agreed to this plan. After discharge he also was instructed to hold his metformin due to his recent administration of intravenous contrast Vital signs are stable Abdomen is normoactive bowel sounds and soft he has no focal tender areas cardiac exam is regular lungs are clear Patient vomiting with some coffee-ground with stable blood count patient go home up with pulmonary inhibitor discontinue his ibuprofen and follow-up Dr. Briceno in 1 week Documented By: Shon Gonzalez Total Time Spent: Greater than 30 minutes This includes examination of the patient, discharge planning, medication reconciliation, and communication with other providers. Discharge Instructions Please refer to the electronic Patient Visit Report (Discharge Instructions) for additional information. Follow-Up Follow with primary in the next week Follow with GI for endoscopy
[2017-01-26] MEDS ORDERED: PANTOprazole SOD 40 MG TAB PO SCH (21:00)
== END 2017-01-26 12:11 | disposition home or self-care (01) ==
LOC: C.EDB 12:12 → C.2E 17:02 → CANRESERV 17:10 → ENRESERV 17:10
PROVIDERS: ADMIT Internal Medicine; ATTEND Internal Medicine
DX: T38.0X5A Adverse effect of glucocorticoids and synthetic analogues, initial encounter (principal); K29.71 Gastritis, unspecified, with bleeding; I16.1 Hypertensive emergency; E11.42 Type 2 diabetes mellitus with diabetic polyneuropathy; E66.01 Morbid (severe) obesity due to excess calories; Z68.43 Body mass index [BMI] 50.0-59.9, adult; F43.21 Adjustment disorder with depressed mood; F41.9 Anxiety disorder, unspecified; Z87.891 Personal history of nicotine dependence; Z79.82 Long term (current) use of aspirin; Z79.4 Long term (current) use of insulin; Z79.899 Other long term (current) drug therapy; X58.XXXA Exposure to other specified factors, initial encounter

== ENCOUNTER → 2017-03-13 | Outpatient (CLI) | payer OTHER ==
[~2017-03-13] MED LIST changes: +ASPI81TA28 PO; +BNC/40 PO; +CANA1TAB PO; +CHOL1000 PO; +CHOL20007 PO; +CRFUDL PO; -CYM/30 PO; +DULO60CA44 PO; -MELO15TA10 PO; +MELO15TA4 PO; +PRT40 PO; +SPIR50TA PO; +TRAM-10 PO
[2017-03-13 17:54] LABS: ALBUMIN 3.4 gm/dl (3.4-5.0); BLOOD UREA NITROGEN 16 mg/dl (7-18); CALCIUM 8.8 mg/dl (8.5-10.1); CARBON DIOXIDE 27 mmol/L (21-32); CREATININE 0.97 mg/dl (0.60-1.40); GLUCOSE 179 mg/dl (70-99); PHOSPHORUS 3.6 mg/dl (2.5-4.9); POTASSIUM 3.7 mmol/L (3.5-5.1); SODIUM 137 mmol/L (136-145)
== END | disposition home or self-care (01) ==
LOC: C.LAB1850 16:11
PROVIDERS: ATTEND Internal Medicine Nephrology
DX: I10 Essential (primary) hypertension (principal)

== ENCOUNTER → 2017-03-19 | Day surgery (SDC) | payer OTHER ==
[2017-03-13 14:56] VITALS: Ht 170.2 cm; Wt 160.0 kg
[~2017-03-19] VITALS: Ht 170.2 cm; Wt 160.0 kg
[~2017-03-19] MED LIST changes: +FENTANYL CITRATE INJ 50 MCG/1 ML 2 ML VIAL ONE; +KETAMINE HCL INJ 50 MG/ML 10 ML VIAL ONE; +LIDOCAINE HCL 2% 2 ML VIAL (20MG/ML) ONE; +PROPOFOL IV EMULSION 10 MG/ML 20 ML VIAL IV ONE; +SODIUM CHLORIDE 0.9% 500ML 500 ML IV ONE
--- NOTE | 2017-03-19 14:48 | Endo History and Physical ---
History & Physical Date of Service: Mar 19, 2017. Chief Complaint: GI Bleed Referring Physician: Dr. Briceno History of Present Illness GI bleed Past Medical History Diabetes, High Cholesterol, Heart Disease, Hypertension Past Surgical History Hx Cardiac Surgery: No Hx Internal Defibrillator: No Hx Pacemaker: No Hx Abdominal Surgery: Yes (SARIKA) Hx of Implantable Prosthesis: No Hx Post-Op Nausea and Vomiting: No Hx Cancer Surgery: No Hx Thoracic Surgery: No Hx Orthopedic: Yes (RT/LEFT CTR) Hx Urinary Tract Surgery: No Family History None Social History Smoking Status: Former Smoker Hx Substance Use: No Hx Alcohol Use: Yes (OCCASIONALLY) Allergies Coded Allergies: Ceftriaxone (Verified Allergy, Severe, SHORTNESS OF BREATH, 03/19/17) Lidocaine (Verified Allergy, Severe, SHORTNESS OF BREATH, diaphoretic, hives, 03/19/17) pt unable to give further information on when reaction occured Procaine (Verified Allergy, Severe, SHORTNESS OF BREATH, diaphoretic, hives, 01/25/17) pt unable to give further information on when reaction occured Lisinopril (Verified Allergy, Intermediate, HIVES, 03/19/17) Albuterol (Verified Allergy, Mild, proair "trouble taking breaths", 03/19/17 ) Amoxicillin (Verified Allergy, Unknown, HIVES/FACIAL SWELLING, 03/19/17) Clavulanic Acid (Verified Allergy, Unknown, ., 03/19/17) Acetaminophen (Verified Adverse Reaction, Unknown, NAUSEA, 03/19/17) Current Medications Reported Home Medications Medications Dose Route/Sig Max Daily Dose Days Date Category Dose Instructions Mobic (Meloxicam) 15 Mg Tab 15 Mg PO BID 03/13/17 Reported Cozaar (Losartan Potassium) 100 Mg Tab 100 Mg PO QAM 03/13/17 Reported Vitamin D3 (Cholecalciferol) 1,000 Unit Tab 2 Tab PO BID 03/13/17 Reported Sucralfate 1 Gm/10 Ml Susp 1 Gm PO QID 30 01/26/17 Rx Pantoprazole Sodium (Pantoprazole) 40 Mg Tab 40 Mg PO BID 30 01/26/17 Rx Cymbalta (Duloxetine Hcl) 60 Mg Cap 60 Mg PO QAM 01/25/17 Reported Ultram (Tramadol HCl) 50 Mg Tab 50 Mg PO Q8H PRN 01/25/17 Reported Aldactazide 25MG/25MG (HCTZ/Spironolactone) 1 Tab Tab 1 Tab PO BID 01/25/17 Reported Benicar (Olmesartan Medoxomil) 40 Mg Tab 40 Mg PO QAM 01/25/17 Reported Invokana (Canagliflozin) 100 Mg Tab 100 Mg PO QAM 01/25/17 Reported Aspirin Ec (Aspirin) 81 Mg Tab 81 Mg PO QAM 01/25/17 Reported Humalog Mix 50/50 (Insulin Lispro Protamine & Lis) 1 Inj Inj 120 Units SC AMPM 01/08/17 Reported Trulicity (Dulaglutide) 1.5 Mg/0.5 Ml Inj 1.5 Mg SC WK 01/08/17 Reported [place]EDN[place]DAYS Norvasc (Amlodipine Besylate) 10 Mg Tab 10 Mg PO QAM 01/08/17 Reported Glucophage (Metformin Hcl) 500 Mg Tab 1,000 Mg PO BIDM 01/08/17 Reported TWO 500 MG TABLETS TWICE DAILY WITH MEALS. Lipitor (Atorvastatin Calcium) 20 Mg Tab 20 Mg PO HS 01/08/17 Reported Apresoline (Hydralazine Hcl) 100 Mg Tab 100 Mg PO TID 01/08/17 Reported Neurontin (Gabapentin) 400 Mg Cap 400 Mg PO TID 01/08/17 Reported Lasix (Furosemide) 40 Mg Tab 40 Mg PO QAM 01/08/17 Reported Labetalol Hcl 100 Mg Tab 200 Mg PO BID 01/08/17 Reported Vital Signs Weight (Kilograms): 160 Height (Feet): 5 Height (Inches): 7 Date Time Temp Pulse Resp B/P (MAP) Pulse Ox O2 Delivery O2 Flow Rate FiO2 03/19/17 14:01 36.4 87 20 155/106 (122) 96 Room Air Physical Exam General Appearance: WD/WN, no apparent distress Respiratory/Chest: Auscultation: breath sounds normal Cardiovascular: Heart Auscultation: RRR Abdomen: Bowel Sounds: normal Inspection & Palpation: soft, non-distended, no tenderness, guarding & rebound Assessment and Plan EGD
--- NOTE | 2017-03-19 15:23 | Discharge Instructions ---
Endoscopy Patient Instructions Date / Procedure(s) Performed Mar 19, 2017. EGD Allergy Information Coded Allergies: Ceftriaxone (Verified Allergy, Severe, SHORTNESS OF BREATH, 03/19/17) Lidocaine (Verified Allergy, Severe, SHORTNESS OF BREATH, diaphoretic, hives, 03/19/17) pt unable to give further information on when reaction occured Procaine (Verified Allergy, Severe, SHORTNESS OF BREATH, diaphoretic, hives, 01/25/17) pt unable to give further information on when reaction occured Lisinopril (Verified Allergy, Intermediate, HIVES, 03/19/17) Albuterol (Verified Allergy, Mild, proair "trouble taking breaths", 03/19/17 ) Amoxicillin (Verified Allergy, Unknown, HIVES/FACIAL SWELLING, 03/19/17) Clavulanic Acid (Verified Allergy, Unknown, ., 03/19/17) Acetaminophen (Verified Adverse Reaction, Unknown, NAUSEA, 03/19/17) Discharge Date / Findings Mar 19, 2017. prtal gastropathy no varices mild gastritis bx Medication Instructions Stopped Medication(s): Metformin last taken on 03/15/17 Restart Stopped Medication(s): Reported Home Medications Medications Dose Route/Sig Max Daily Dose Days Date Category Dose Instructions Mobic (Meloxicam) 15 Mg Tab 15 Mg PO BID 03/13/17 Reported Cozaar (Losartan Potassium) 100 Mg Tab 100 Mg PO QAM 03/13/17 Reported Vitamin D3 (Cholecalciferol) 1,000 Unit Tab 2 Tab PO BID 03/13/17 Reported Sucralfate 1 Gm/10 Ml Susp 1 Gm PO QID 30 01/26/17 Rx Pantoprazole Sodium (Pantoprazole) 40 Mg Tab 40 Mg PO BID 30 01/26/17 Rx Cymbalta (Duloxetine Hcl) 60 Mg Cap 60 Mg PO QAM 01/25/17 Reported Ultram (Tramadol HCl) 50 Mg Tab 50 Mg PO Q8H PRN 01/25/17 Reported Aldactazide 25MG/25MG (HCTZ/Spironolactone) 1 Tab Tab 1 Tab PO BID 01/25/17 Reported Benicar (Olmesartan Medoxomil) 40 Mg Tab 40 Mg PO QAM 01/25/17 Reported Invokana (Canagliflozin) 100 Mg Tab 100 Mg PO QAM 01/25/17 Reported Aspirin Ec (Aspirin) 81 Mg Tab 81 Mg PO QAM 01/25/17 Reported Humalog Mix 50/50 (Insulin Lispro Protamine & Lis) 1 Inj Inj 120 Units SC AMPM 01/08/17 Reported Trulicity (Dulaglutide) 1.5 Mg/0.5 Ml Inj 1.5 Mg SC WK 01/08/17 Reported [place] Norvasc (Amlodipine Besylate) 10 Mg Tab 10 Mg PO QAM 01/08/17 Reported Glucophage (Metformin Hcl) 500 Mg Tab 1,000 Mg PO BIDM 01/08/17 Reported TWO 500 MG TABLETS TWICE DAILY WITH MEALS. Lipitor (Atorvastatin Calcium) 20 Mg Tab 20 Mg PO HS 01/08/17 Reported Apresoline (Hydralazine Hcl) 100 Mg Tab 100 Mg PO TID 01/08/17 Reported Neurontin (Gabapentin) 400 Mg Cap 400 Mg PO TID 01/08/17 Reported Lasix (Furosemide) 40 Mg Tab 40 Mg PO QAM 01/08/17 Reported Labetalol Hcl 100 Mg Tab 200 Mg PO BID 01/08/17 Reported Reported Home Medications Medications Dose Route/Sig Max Daily Dose Days Date Category Dose Instructions Mobic (Meloxicam) 15 Mg Tab 15 Mg PO BID 03/13/17 Reported Cozaar (Losartan Potassium) 100 Mg Tab 100 Mg PO QAM 03/13/17 Reported Vitamin D3 (Cholecalciferol) 1,000 Unit Tab 2 Tab PO BID 03/13/17 Reported Sucralfate 1 Gm/10 Ml Susp 1 Gm PO QID 30 01/26/17 Rx Pantoprazole Sodium (Pantoprazole) 40 Mg Tab 40 Mg PO BID 30 01/26/17 Rx Cymbalta (Duloxetine Hcl) 60 Mg Cap 60 Mg PO QAM 01/25/17 Reported Ultram (Tramadol HCl) 50 Mg Tab 50 Mg PO Q8H PRN 01/25/17 Reported Aldactazide 25MG/25MG (HCTZ/Spironolactone) 1 Tab Tab 1 Tab PO BID 01/25/17 Reported Benicar (Olmesartan Medoxomil) 40 Mg Tab 40 Mg PO QAM 01/25/17 Reported Invokana (Canagliflozin) 100 Mg Tab 100 Mg PO QAM 01/25/17 Reported Aspirin Ec (Aspirin) 81 Mg Tab 81 Mg PO QAM 01/25/17 Reported Humalog Mix 50/50 (Insulin Lispro Protamine & Lis) 1 Inj Inj 120 Units SC AMPM 01/08/17 Reported Trulicity (Dulaglutide) 1.5 Mg/0.5 Ml Inj 1.5 Mg SC WK 01/08/17 Reported [place] Norvasc (Amlodipine Besylate) 10 Mg Tab 10 Mg PO QAM 01/08/17 Reported Glucophage (Metformin Hcl) 500 Mg Tab 1,000 Mg PO BIDM 01/08/17 Reported TWO 500 MG TABLETS TWICE DAILY WITH MEALS. Lipitor (Atorvastatin Calcium) 20 Mg Tab 20 Mg PO HS 01/08/17 Reported Apresoline (Hydralazine Hcl) 100 Mg Tab 100 Mg PO TID 01/08/17 Reported Neurontin (Gabapentin) 400 Mg Cap 400 Mg PO TID 01/08/17 Reported Lasix (Furosemide) 40 Mg Tab 40 Mg PO QAM 01/08/17 Reported Labetalol Hcl 100 Mg Tab 200 Mg PO BID 01/08/17 Reported Reported Home Medications Medications Dose Route/Sig Max Daily Dose Days Date Category Dose Instructions Mobic (Meloxicam) 15 Mg Tab 15 Mg PO BID 03/13/17 Reported Cozaar (Losartan Potassium) 100 Mg Tab 100 Mg PO QAM 03/13/17 Reported Vitamin D3 (Cholecalciferol) 1,000 Unit Tab 2 Tab PO BID 03/13/17 Reported Sucralfate 1 Gm/10 Ml Susp 1 Gm PO QID 30 01/26/17 Rx Pantoprazole Sodium (Pantoprazole) 40 Mg Tab 40 Mg PO BID 30 01/26/17 Rx Cymbalta (Duloxetine Hcl) 60 Mg Cap 60 Mg PO QAM 01/25/17 Reported Ultram (Tramadol HCl) 50 Mg Tab 50 Mg PO Q8H PRN 01/25/17 Reported Aldactazide 25MG/25MG (HCTZ/Spironolactone) 1 Tab Tab 1 Tab PO BID 01/25/17 Reported Benicar (Olmesartan Medoxomil) 40 Mg Tab 40 Mg PO QAM 01/25/17 Reported Invokana (Canagliflozin) 100 Mg Tab 100 Mg PO QAM 01/25/17 Reported Aspirin Ec (Aspirin) 81 Mg Tab 81 Mg PO QAM 01/25/17 Reported Humalog Mix 50/50 (Insulin Lispro Protamine & Lis) 1 Inj Inj 120 Units SC AMPM 01/08/17 Reported Trulicity (Dulaglutide) 1.5 Mg/0.5 Ml Inj 1.5 Mg SC WK 01/08/17 Reported [place] Norvasc (Amlodipine Besylate) 10 Mg Tab 10 Mg PO QAM 01/08/17 Reported Glucophage (Metformin Hcl) 500 Mg Tab 1,000 Mg PO BIDM 01/08/17 Reported TWO 500 MG TABLETS TWICE DAILY WITH MEALS. Lipitor (Atorvastatin Calcium) 20 Mg Tab 20 Mg PO HS 01/08/17 Reported Apresoline (Hydralazine Hcl) 100 Mg Tab 100 Mg PO TID 01/08/17 Reported Neurontin (Gabapentin) 400 Mg Cap 400 Mg PO TID 01/08/17 Reported Lasix (Furosemide) 40 Mg Tab 40 Mg PO QAM 01/08/17 Reported Labetalol Hcl 100 Mg Tab 200 Mg PO BID 01/08/17 Reported Provider Instructions Activity Restrictions - No exercising or heavy lifting for 24 hours. - Do not drink alcohol the day of the procedure. - Do not drive a car or operate machinery until the day after the procedure. - Do not make any important decisions or sign important papers in 24 hours after the procedure. Following Day: - Return to full activity which may include returning to work/school. Diet Start your diet with liquids and light foods (jello, soup, juice, toast). Then eat your usual diet if not nauseated. Treatment For Common After Affects For mild abdominal pain, bloating, or excessive gas: - Rest - Eat lightly - Lie on right side Follow-Up Information Follow-up with Dr. Briceno as scheduled Anesthesia Information What You Should Know You have had a procedure that required some medicine to reduce anxiety and discomfort. This treatment is called moderate sedation. After receiving the treatment, you may be sleepy, but you will be able to breathe on your own. The effects of the treatment may last for several hours. Follow these instructions along with Activity/Diet recommendations noted above: * Do NOT do anything where dizziness or clumsiness would be dangerous. * Rest quietly at home today, then you can be up and about tomorrow. * Have a responsible person stay with you the rest of today. * You may have had an I.V. today. If so, you may take the dressing off later today. Recommendations Call your doctor if: * Trouble breathing * Continuous vomiting for more than 24 hours * Temperature above 101 degrees * Severe abdominal pain or bloating * Pain not relieved by pain medicine ordered * There is increased drainage or redness from any incision * A large amount of rectal bleeding greater than 2-3 tablespoons. (If you had a polyp/s removed or have hemorrhoids, a small amount of blood - from the rectum is to be expected.) * You have any unanswered questions or concerns. IN THE EVENT OF A SERIOUS EMERGENCY, GO TO THE NEAREST EMERGENCY ROOM Your discharge instructions were prepared by provider Munir Matt. Patient Instructions Signature Page Alok Huff Patient (or Guardian) Signature/Date: I have read and understand the instructions given to me by my caregivers. Caregiver/RN/Doctor Signature/Date: The above-named patient and/or guardian has received patient instructions on this date. + Original Patient Signature Page (only) stays with chart. Please make copy for patient.
--- NOTE | 2017-03-19 15:32 | GI REPORT ---
Procedure Date: 03/19/2017 2:47 PM Procedure: Upper GI endoscopy Indications: Dysphagia, Coffee-ground emesis, Hematemesis Medicines: Propofol per Anesthesia Complications: No immediate complications. Estimated blood loss: Minimal. Estimated Blood Loss: Estimated blood loss was minimal. Procedure: Pre-Anesthesia Assessment: - Prior to the procedure, a History and Physical was performed, and patient medications and allergies were reviewed. The patient's tolerance of previous anesthesia was also reviewed. The risks and benefits of the procedure and the sedation options and risks were discussed with the patient. All questions were answered, and informed consent was obtained. Prior Anticoagulants: The patient has taken no previous anticoagulant or antiplatelet agents. ASA Grade Assessment: III - A patient with severe systemic disease. After reviewing the risks and benefits, the patient was deemed in satisfactory condition to undergo the procedure. After obtaining informed consent, the endoscope was passed under direct vision. Throughout the procedure, the patient's blood pressure, pulse, and oxygen saturations were monitored continuously. The scope was introduced through the mouth, and advanced to the second part of duodenum. The upper GI endoscopy was accomplished without difficulty. The patient tolerated the procedure well. Findings: The examined esophagus was normal. The Z-line was regular and was found 45 cm from the incisors. Mild portal hypertensive gastropathy was found in the gastric fundus and in the gastric body. Patchy mildly erythematous mucosa without bleeding was found in the gastric antrum. Biopsies were taken with a cold forceps for histology. Verification of patient identification for the specimen was done by the physician and respiratory therapy technician using the patient's name and medical record number. The examined duodenum was normal. Impression: - Normal esophagus. - Z-line regular, 45 cm from the incisors. - Portal hypertensive gastropathy. - Erythematous mucosa in the antrum. Biopsied. - Normal examined duodenum. Recommendation: - Discharge patient to home (ambulatory). - Resume regular diet. - Continue present medications. - Await pathology results. - Return to GI clinic as previously scheduled. MD Munir Tirado MD 03/19/2017 3:31:22 PM This report has been signed electronically. Note Initiated On: 03/19/2017 2:47 PM I attest to the content of the Intraoperative Record and orders documented therein, exceptions below
--- NOTE | 2017-03-19 15:40 | Anesthesiology Progress Note ---
Anesthesia Post Op Note Date & Time Mar 19, 2017 at 15:40 Vital Signs Pain Intensity: 0 Vital Signs Past 12 Hours Date Time Temp Pulse Resp B/P (MAP) Pulse Ox O2 Delivery O2 Flow Rate FiO2 03/19/17 15:38 72 20 174/95 (121) 94 Room Air 03/19/17 15:24 36.4 77 20 163/106 (125) 98 Mask 8 03/19/17 14:01 36.4 87 20 155/106 (122) 96 Room Air Notes Mental Status: alert / awake / arousable, participated in evaluation Pt Amnestic to Procedure: Yes Nausea / Vomiting: adequately controlled Pain: adequately controlled Airway Patency, RR, SpO2: stable & adequate BP & HR: stable & adequate Hydration State: stable & adequate Anesthetic Complications: no major complications apparent
[2017-03-19 15:54] VITALS: BP 172/90; PULSE 77; O2SAT 94
== END | disposition home or self-care (01) ==
LOC: C.GI 13:27
PROVIDERS: ATTEND Internal Medicine Gastroenterology
DX: R13.10 Dysphagia, unspecified (principal); K29.50 Unspecified chronic gastritis without bleeding; K31.89 Other diseases of stomach and duodenum; J45.909 Unspecified asthma, uncomplicated; J44.9 Chronic obstructive pulmonary disease, unspecified; G47.33 Obstructive sleep apnea (adult) (pediatric); E11.9 Type 2 diabetes mellitus without complications; E78.00 Pure hypercholesterolemia, unspecified; I10 Essential (primary) hypertension; F41.9 Anxiety disorder, unspecified; F32.9 Major depressive disorder, single episode, unspecified; Z98.890 Other specified postprocedural states; Z90.49 Acquired absence of other specified parts of digestive tract; Z88.1 Allergy status to other antibiotic agents; Z90.89 Acquired absence of other organs; Z79.899 Other long term (current) drug therapy; Z79.4 Long term (current) use of insulin

== ENCOUNTER 2017-04-09 11:09 | Emergency (ER) | payer OTHER ==
[~2017-04-09] VITALS: Ht 170.2 cm; Wt 165.8 kg
[~2017-04-09 11:09] MED LIST changes: -CHOL20007 PO; -FENTANYL CITRATE INJ 50 MCG/1 ML 2 ML VIAL ONE; +GABA-1220 PO; -GABA1CAP5 PO; -KETAMINE HCL INJ 50 MG/ML 10 ML VIAL ONE; -LIDOCAINE HCL 2% 2 ML VIAL (20MG/ML) ONE; +MELO-84 PO; -MELO15TA4 PO; -PROPOFOL IV EMULSION 10 MG/ML 20 ML VIAL IV ONE; -SODIUM CHLORIDE 0.9% 500ML 500 ML IV ONE
[2017-04-09 11:14] VITALS: TEMP 36.4; Ht 170.2 cm; Wt 165.8 kg
--- NOTE | 2017-04-09 12:06 | EMERGENCY ROOM VISIT NOTE ---
History Report prepared by Carisa: Suraj Bahena Under the Supervision of: Dr. Rdoney Hilton D.O. First contact with patient: 11:58 Chief Complaint: PAIN (GENERALIZED) Stated Complaint: LEFT SIDED PAIN AND NUMBNESS, JOINTS POP History of Present Illness The patient is a 41 year old male who presents to the Emergency Room with complaints of sharp left sided chest pain that began this morning. He rates his pain moderate in severity. He has a past medical history of diabetes. The patient began experiencing this pain when he woke up this morning. His pain is radiating up into his left arm. He is also complaining of left ankle pain that has been worsening over the past couple of days. He has been following up with an orthopedist and has been in multiple boots/braces for his foot. He states that his diabetic sores and rashes are worsening as well. He notes that whenever he walks long distances he cannot catch his breath. His left ankle pain is exacerbated with movement. He denies any fevers, abdominal pain, nausea , vomiting, or weakness. Source of History: patient Onset: this morning Position: chest (left) Symptom Intensity: moderate Quality: sharp Timing: constant Associated Symptoms: + SOB (with walking long distances), No fevers, No nausea, No vomiting, No abdominal pain, No weakness Note: He is experiencing left ankle pain which is exacerbated by movement. Review of Systems See HPI for pertinent positives & negatives. A total of 10 systems reviewed and were otherwise negative. Past Medical & Surgical Medical Problems: (1) accelerted HTN, obesity, DM (2) ADJUSTMENT DISORDER WITH DEPRESSED MOOD (3) ANXIETY STATE NOS (4) Benign hypertension (5) DEPRESSIVE DISORDER NEC (6) Diabetes mellitus type 2 (7) Diabetic peripheral neuropathy associated with type 2 diabetes mellitus (8) Loss of sensation (9) Morbid obesity with body mass index of 50.0-59.9 in adult (10) MRSA (11) TOBACCO USE DISORDER (12) uvulectomy Social History Problems: (1) Learning disability Family History Diabetes mellitus FHx: asthma Social History Smoking Status: Never Smoker Alcohol Use: none Drug Use: none Marital Status: Housing Status: lives with family Current/Historical Medications Scheduled Amlodipine (Norvasc), 10 MG PO QAM Aspirin (Aspirin Ec), 81 MG PO QAM Atorvastatin (Lipitor), 20 MG PO HS Canagliflozin (Invokana), 100 MG PO QAM Cholecalciferol (Vitamin D3), 2 TAB PO BID Dulaglutide (Trulicity), 1.5 MG SC WK Duloxetine Hcl (Cymbalta), 60 MG PO QAM Furosemide (Lasix), 40 MG PO QAM Gabapentin (Neurontin), 400 MG PO TID Hctz/Spironolactone 25MG/25MG (Aldactazide 25MG/25MG), 1 TAB PO BID Hydralazine Hcl (Apresoline), 100 MG PO TID Insulin Lispro Protamine & Lis (Humalog Mix 50/50), 120 UNITS SC AMPM Labetalol Hcl (Labetalol Hcl), 300 MG PO BID Losartan Potassium (Cozaar), 100 MG PO QAM Meloxicam (Mobic), 15 MG PO BID Metformin Hcl (Glucophage), 1,000 MG PO BIDM Olmesartan Medoxomil (Benicar), 40 MG PO QAM Pantoprazole (Pantoprazole Sodium), 40 MG PO BID Sucralfate (Sucralfate), 1 GM PO QID Scheduled PRN Tramadol (Ultram), 50 MG PO Q8H PRN for Pain Allergies Coded Allergies: Ceftriaxone (Verified Allergy, Severe, SHORTNESS OF BREATH, 04/09/17) Lidocaine (Verified Allergy, Severe, SHORTNESS OF BREATH, diaphoretic, hives, 04/09/17) pt unable to give further information on when reaction occured Procaine (Verified Allergy, Severe, SHORTNESS OF BREATH, diaphoretic, hives, 04/09/17) pt unable to give further information on when reaction occured Lisinopril (Verified Allergy, Intermediate, HIVES, 04/09/17) Albuterol (Verified Allergy, Mild, proair "trouble taking breaths", ) Amoxicillin (Verified Allergy, Unknown, HIVES/FACIAL SWELLING, 04/09/17) Clavulanic Acid (Verified Allergy, Unknown, ., 04/09/17) Acetaminophen (Verified Adverse Reaction, Unknown, NAUSEA, 04/09/17) Physical Exam Vital Signs Date Time Temp Pulse Resp B/P (MAP) Pulse Ox O2 Delivery O2 Flow Rate FiO2 04/09/17 14:08 83 19 165/96 96 Room Air 2/26/18 12:25 94 Room Air 04/09/17 12:24 86 04/09/17 11:14 36.4 91 18 188/121 96 Room Air Physical Exam GENERAL: Patient is awake, alert, and in no acute distress. Patient is resting comfortably and showing no signs of anxiety EYES: The conjunctivae are clear. The pupils are round and reactive. EARS, NOSE, MOUTH AND THROAT: The nose is without any evidence of any deformity. Mucous membranes are moist tongue is midline NECK: The neck is nontender and supple. RESPIRATORY: Normal respiratory effort is noted there is no evidence of wheezing rhonchi or rales CARDIOVASCULAR: Regular rate and rhythm noted there no murmurs rubs or gallops normal S1 normal S2 GASTROINTESTINAL: The abdomen is soft. Bowel sounds are present in all quadrants. Abdomen is nontender MUSCULOSKELETAL/EXTREMITIES: There is no evidence of gross deformity full range of motion is noted in the hips and shoulders. Tenderness over the left Achilles. No swelling noted. Tendon function intact. SKIN: There is no obvious evidence of any rash. There are no petechiae, pallor or cyanosis noted. NEUROLOGIC: Patient is awake alert and oriented x3 strength is symmetric patellar reflexes are 2+ bilaterally Medical Decision & Procedures ER Provider Diagnostic Interpretation: Radiology results as stated below per my review and radiologist interpretation: L TIBIA/FIBULA 2 VIEWS ROUTINE CLINICAL HISTORY: 41 years-old Male presenting with LLE pain. TECHNIQUE: Frontal and lateral views of the left lower leg were obtained. COMPARISON: 11/18/2016. FINDINGS: Knee joint grossly congruent.. Trace knee joint effusion may be present. No advanced degenerative changes of the knee joint. Ankle mortise is also grossly intact. Anterior osteophytosis at the ankle mortise may be present. No acute fracture or subluxation. No periosteal reaction. IMPRESSION: 1. No acute osseous injury. If there is continuing clinical concern for acute osseous injury, noncontrast MR could be obtained which are better demonstrate stress injuries. 2. Mild degenerative changes of the ankle mortise. Electronically signed by: Negro Schroeder M.D. 04/09/2017 12:50 PM Dictated Date/Time: 04/09/2017 12:48 PM LEFT LOWER EXTREMITY VENOUS DOPPLER CLINICAL HISTORY: Left lower extremity pain. COMPARISON STUDY: Left lower extremity venous Doppler November 18, 2016. TECHNIQUE: Sonography of the deep venous system of the left lower extremity was performed. Compression and augmentation were evaluated. FINDINGS: Exam was compromised due to suboptimal penetration. The common femoral, superficial femoral and popliteal veins were compressible. Augmentation was normal. Flow was shown within the deep calf vessels. IMPRESSION: Technically difficult exam but no evidence of deep venous thrombus within the left lower extremity. Electronically signed by: Eyad Rosario M.D. 04/09/2017 1:30 PM Dictated Date/Time: 04/09/2017 1:29 PM CHEST ONE VIEW PORTABLE CLINICAL HISTORY: Chest pain. COMPARISON STUDY: Chest radiograph January 25, 2017. FINDINGS: Lung volumes are normal. There is no pneumothorax or pleural effusion. There is no evidence for pulmonary edema. There is no consolidation. Moderate enlargement of the cardiac silhouette is unchanged IMPRESSION: 1. No acute cardiopulmonary findings. 2. Moderate enlargement of the cardiac silhouette. Electronically signed by: Eyad Rosario M.D. 04/09/2017 12:49 PM Dictated Date/Time: 04/09/2017 12:47 PM Laboratory Results 04/09/17 12:16 Red Blood Count 4.75, Mean Corpuscular Volume 85.3, Mean Corpuscular Hemoglobin 29.7, Mean Corpuscular Hemoglobin Concent 34.8, Mean Platelet Volume 10.0, Neutrophils (%) (Auto) 66.3, Lymphocytes (%) (Auto) 26.2, Monocytes (%) (Auto) 5.8, Eosinophils (%) (Auto) 1.1, Basophils (%) (Auto) 0.1, Neutrophils # (Auto) 5.58, Lymphocytes # (Auto) 2.20, Monocytes # (Auto) 0.49, Eosinophils # (Auto) 0.09, Basophils # (Auto) 0.01 04/09/17 12:16 Test 04/09/17 12:16 White Blood Count 8.41 K/uL (4.8-10.8) Red Blood Count 4.75 M/uL (4.7-6.1) Hemoglobin 14.1 g/dL (14.0-18.0) Hematocrit 40.5 % (42-52) Mean Corpuscular Volume 85.3 fL (80-100) Mean Corpuscular Hemoglobin 29.7 pg (25-34) Mean Corpuscular Hemoglobin Concent 34.8 g/dl (32-36) Platelet Count 155 K/uL (130-400) Mean Platelet Volume 10.0 fL (7.4-10.4) Neutrophils (%) (Auto) 66.3 % Lymphocytes (%) (Auto) 26.2 % Monocytes (%) (Auto) 5.8 % Eosinophils (%) (Auto) 1.1 % Basophils (%) (Auto) 0.1 % Neutrophils # (Auto) 5.58 K/uL (1.4-6.5) Lymphocytes # (Auto) 2.20 K/uL (1.2-3.4) Monocytes # (Auto) 0.49 K/uL (0.11-0.59) Eosinophils # (Auto) 0.09 K/uL (0-0.5) Basophils # (Auto) 0.01 K/uL (0-0.2) RDW Standard Deviation 45.3 fL (36.4-46.3) RDW Coefficient of Variation 14.4 % (11.5-14.5) Immature Granulocyte % (Auto) 0.5 % Immature Granulocyte # (Auto) 0.04 K/uL (0.00-0.02) Prothrombin Time 10.0 SECONDS (9.0-12.0) Prothromb Time International Ratio 1.0 (0.9-1.1) Activated Partial Thromboplast Time 26.5 SECONDS (21.0-31.0) Partial Thromboplastin Ratio 1.0 Anion Gap 7.0 mmol/L (3-11) Est Creatinine Clear Calc Drug Dose 171.2 ml/min Estimated GFR () 125.7 Estimated GFR (Non- 108.5 BUN/Creatinine Ratio 15.9 (10-20) Calcium Level 8.4 mg/dl (8.5-10.1) Total Bilirubin 0.4 mg/dl (0.2-1) Direct Bilirubin 0.1 mg/dl (0-0.2) Aspartate Amino Transf (AST/SGOT) 15 U/L (15-37) Alanine Aminotransferase (ALT/SGPT) 35 U/L (12-78) Alkaline Phosphatase 90 U/L (45-117) Total Creatine Kinase 207 U/L (39-308) Creatine Kinase MB 2.3 ng/ml (0.5-3.6) Creatine Kinase MB Ratio 1.1 (0-3.0) Troponin I < 0.015 ng/ml (0-0.045) Total Protein 7.0 gm/dl (6.4-8.2) Albumin 3.2 gm/dl (3.4-5.0) Lipase 155 U/L (73-393) Laboratory results per my review. ECG Per My Interpretation Indication: chest pain Rate (beats per minute): 88 Rhythm: normal sinus Findings: T-wave inversion (high lateral), other (No PVC, no acute ST segments) Comparison ECG Date: 01/08/17 Change: no significant change ED Course 1158: The patient was evaluated in room C8. A complete history and physical examination were performed. 1400: Upon reevaluation, the patient is resting. I discussed the results and treatment plan with him. He verbalized agreement of the treatment plan. He was discharged home. Medical Decision Differential diagnosis: Etiologies such as DVT, musculoskeletal, infection, joint effusion, trauma, lymphedema, idiopathic, CHF, as well as others were entertained.. Nursing notes reviewed. The patient is a 41-year-old male who presented to the emergency department for an evaluation of chest pain and leg pain. The patient has had multiple episodes of chest pain there appear to be good function at the tendon. I discussed the patient's laboratory and radiographic studies with him. He was encouraged to follow-up with his primary orthopedic physician and continue all medications as prescribed. Otherwise he was encouraged to return emergency department immediately if symptoms change worsening of the need arises. Medication Reconcilliation Current Medication List: was personally reviewed by me Blood Pressure Screening Patient's blood pressure: Elevated blood pressure Blood pressure disposition: Referred to PCP Impression Primary Impression: Achilles tendinitis Additional Impression: Left sided chest pain Scribe Attestation The scribe's documentation has been prepared under my direction and personally reviewed by me in its entirety. I confirm that the note above accurately reflects all work, treatment, procedures, and medical decision making performed by me. Departure Information Dispostion Home / Self-Care Referrals Bertrand Briceno M.D. (PCP) Forms HOME CARE DOCUMENTATION FORM, IMPORTANT VISIT INFORMATION, WORK / SCHOOL INSTRUCTIONS Patient Instructions Achilles Tendonitis, My [facility] Additional Instructions Call your primary care physician as well as her primary orthopedic physician to schedule a follow-up appointment. Continue all medications as prescribed. Rest and avoid any strenuous activity. Problem Qualifiers Primary Impression: Achilles tendinitis Laterality: left Qualified Codes: M76.62 - Achilles tendinitis, left leg
[2017-04-09 12:25] VITALS: O2SAT 94
[2017-04-09 12:37] LABS: BASO % 0.1 %; BASO ABS # 0.01 K/uL (0-0.2); EOS % 1.1 %; EOS ABS # 0.09 K/uL (0-0.5); HEMATOCRIT 40.5 % (42-52); HEMOGLOBIN 14.1 g/dL (14.0-18.0); IG# 0.04 K/uL (0.00-0.02); LYMPH % 26.2 %; MEAN CELL VOLUME 85.3 fL (80-100); MEAN CORPUSCULAR HEMOGLOBIN 29.7 pg (25-34); MEAN CORPUSCULAR HGB CONC 34.8 g/dl (32-36); MONO % 5.8 %; MONO ABS # 0.49 K/uL (0.11-0.59); NEUT % 66.3 %; NEUT ABS # 5.58 K/uL (1.4-6.5); PLATELET COUNT 155 K/uL (130-400); RED CELL DISTRIBUTION WIDTH CV 14.4 % (11.5-14.5); RED CELL DISTRIBUTION WIDTH SD 45.3 fL (36.4-46.3); WHITE BLOOD COUNT 8.41 K/uL (4.8-10.8)
[2017-04-09 12:44] LABS: PTT PATIENT 26.5 SECONDS (21.0-31.0)
[2017-04-09 12:46] LABS: ALBUMIN 3.2 gm/dl (3.4-5.0); ALT/SGPT 35 U/L (12-78); AST/SGOT 15 U/L (15-37); BLOOD UREA NITROGEN 14 mg/dl (7-18); CALCIUM 8.4 mg/dl (8.5-10.1); CARBON DIOXIDE 26 mmol/L (21-32); CREATININE 0.86 mg/dl (0.60-1.40); GLUCOSE 223 mg/dl (70-99); LIPASE 155 U/L (73-393); POTASSIUM 4.1 mmol/L (3.5-5.1); SODIUM 137 mmol/L (136-145)
--- NOTE | 2017-04-09 12:50 | DIAGNOSTIC IMAGING REPORT ---
CHEST ONE VIEW PORTABLE CLINICAL HISTORY: Chest pain. COMPARISON STUDY: Chest radiograph January 25, 2017. FINDINGS: Lung volumes are normal. There is no pneumothorax or pleural effusion. There is no evidence for pulmonary edema. There is no consolidation. Moderate enlargement of the cardiac silhouette is unchanged IMPRESSION: 1. No acute cardiopulmonary findings. 2. Moderate enlargement of the cardiac silhouette. Electronically signed by: Eyad Rosario M.D. 04/09/2017 12:49 PM Dictated Date/Time: 04/09/2017 12:47 PM
--- NOTE | 2017-04-09 12:51 | DIAGNOSTIC IMAGING REPORT ---
L TIBIA/FIBULA 2 VIEWS ROUTINE CLINICAL HISTORY: 41 years-old Male presenting with LLE pain. TECHNIQUE: Frontal and lateral views of the left lower leg were obtained. COMPARISON: 11/18/2016. FINDINGS: Knee joint grossly congruent.. Trace knee joint effusion may be present. No advanced degenerative changes of the knee joint. Ankle mortise is also grossly intact. Anterior osteophytosis at the ankle mortise may be present. No acute fracture or subluxation. No periosteal reaction. IMPRESSION: 1. No acute osseous injury. If there is continuing clinical concern for acute osseous injury, noncontrast MR could be obtained which are better demonstrate stress injuries. 2. Mild degenerative changes of the ankle mortise. Electronically signed by: Negro Schroeder M.D. 04/09/2017 12:50 PM Dictated Date/Time: 04/09/2017 12:48 PM
[2017-04-09 12:56] LABS: ALKALINE PHOSPHATASE 90 U/L (45-117); CKMB 2.3 ng/ml (0.5-3.6)
--- NOTE | 2017-04-09 13:31 | DIAGNOSTIC IMAGING REPORT ---
LEFT LOWER EXTREMITY VENOUS DOPPLER CLINICAL HISTORY: Left lower extremity pain. COMPARISON STUDY: Left lower extremity venous Doppler November 18, 2016. TECHNIQUE: Sonography of the deep venous system of the left lower extremity was performed. Compression and augmentation were evaluated. FINDINGS: Exam was compromised due to suboptimal penetration. The common femoral, superficial femoral and popliteal veins were compressible. Augmentation was normal. Flow was shown within the deep calf vessels. IMPRESSION: Technically difficult exam but no evidence of deep venous thrombus within the left lower extremity. Electronically signed by: Eyad Rosario M.D. 04/09/2017 1:30 PM Dictated Date/Time: 04/09/2017 1:29 PM
[2017-04-09 14:08] VITALS: BP 165/96; PULSE 83; O2SAT 96
== END 2017-04-09 14:10 | disposition home or self-care (01) ==
LOC: C.EDB 11:10 → C.EDC 14:10
DX: R07.9 Chest pain, unspecified (principal); M76.62 Achilles tendinitis, left leg; I10 Essential (primary) hypertension; F41.9 Anxiety disorder, unspecified; E11.40 Type 2 diabetes mellitus with diabetic neuropathy, unspecified; E66.01 Morbid (severe) obesity due to excess calories; Z86.14 Personal history of Methicillin resistant Staphylococcus aureus infection; Z83.3 Family history of diabetes mellitus; Z83.6 Family history of other diseases of the respiratory system; Z79.82 Long term (current) use of aspirin; Z79.899 Other long term (current) drug therapy; Z88.1 Allergy status to other antibiotic agents; Z88.8 Allergy status to other drugs, medicaments and biological substances

== ENCOUNTER → 2017-04-23 | Outpatient (CLI) | payer OTHER ==
[2017-04-23 13:22] LABS: HEMOGLOBIN A1C 8.4 % (4.5-5.6)
== END | disposition home or self-care (01) ==
LOC: C.LABBFT 11:07
PROVIDERS: ATTEND Physician Assistant Medical
DX: E11.65 Type 2 diabetes mellitus with hyperglycemia (principal)

== ENCOUNTER 2017-04-30 10:38 | Observation (INO) | payer OTHER ==
[~2017-04-30] VITALS: Ht 170.2 cm; Wt 167.6 kg
[~2017-04-30 10:38] MED LIST changes: -CARV6.25 PO; -CYCL-376; -IBUP-1450 PO; -SPIR25TA PO
[2017-04-30] MEDS ORDERED: SODIUM CHLORIDE 0.9% 1000ML 1,000 ML IV STA (12:05)
[2017-04-30 12:24] LABS: BASO % 0.2 %; BASO ABS # 0.02 K/uL (0-0.2); EOS % 0.6 %; EOS ABS # 0.05 K/uL (0-0.5); HEMATOCRIT 41.2 % (42-52); HEMOGLOBIN 14.3 g/dL (14.0-18.0); IG# 0.05 K/uL (0.00-0.02); LYMPH % 30.5 %; LYMPH ABS # 2.47 K/uL (1.2-3.4); MEAN CELL VOLUME 84.8 fL (80-100); MEAN CORPUSCULAR HEMOGLOBIN 29.4 pg (25-34); MEAN CORPUSCULAR HGB CONC 34.7 g/dl (32-36); MEAN PLATELET VOLUME 9.8 fL (7.4-10.4); MONO ABS # 0.49 K/uL (0.11-0.59); NEUT % 62.1 %; NEUT ABS # 5.02 K/uL (1.4-6.5); PLATELET COUNT 149 K/uL (130-400); RED CELL DISTRIBUTION WIDTH CV 13.9 % (11.5-14.5); RED CELL DISTRIBUTION WIDTH SD 43.1 fL (36.4-46.3)
--- NOTE | 2017-04-30 12:30 | DIAGNOSTIC IMAGING REPORT ---
CHEST ONE VIEW PORTABLE CLINICAL HISTORY: 41 years-old Male presenting with EVALUATE ALTERED MENTAL STATUS/WEAKNESS, high blood pressure, dizzy. TECHNIQUE: Portable upright AP view of the chest was obtained. COMPARISON: 04/09/2017. FINDINGS: Atherosclerosis of aortic arch. Cardiac silhouette enlarged. Mild pulmonary vascular prominence. Lungs and pleural spaces clear. Degenerative changes of the thoracic spine. IMPRESSION: 1. Cardiomegaly with suggestion of mild volume overload. No jose pulmonary edema. Electronically signed by: Ngero Schroeder M.D. 04/30/2017 12:28 PM Dictated Date/Time: 04/30/2017 12:27 PM
[2017-04-30 12:32] LABS: PTT PATIENT 26.4 SECONDS (21.0-31.0)
[2017-04-30 12:47] LABS: CREATININE 0.72 mg/dl (0.60-1.40)
[2017-04-30 12:48] LABS: ALBUMIN 3.4 gm/dl (3.4-5.0); CALCIUM 8.5 mg/dl (8.5-10.1); POTASSIUM 3.7 mmol/L (3.5-5.1)
[2017-04-30 12:56] LABS: TOTAL PROTEIN 7.3 gm/dl (6.4-8.2)
[2017-04-30] MEDS ORDERED: CYCL-376 (13:02)
[2017-04-30] MEDS ORDERED: CARV6.25 PO (13:02)
[2017-04-30] MEDS ORDERED: SPIR25TA PO (13:02)
[2017-04-30] MEDS ORDERED: IBUP-1450 PO (13:02)
--- NOTE | 2017-04-30 14:26 | EMERGENCY ROOM VISIT NOTE ---
History Report prepared by Carisa: Samir Calix Under the Supervision of: Dr. Kan Ya D.O. First contact with patient: 11:42 Chief Complaint: REFERRED BY DOCTOR Stated Complaint: HIGH BLOOD PRESSURE, SUGAR, DIZZY - DR BYRD History of Present Illness The patient is a 41 year old male who presents to the Emergency Room with complaints of persistent hypertension beginning a few weeks ago. His blood pressure was found to be 186/116 upon arrival to the ED. The patient also complains of headache, generalized weakness, dizziness, and fatigue. He was seen by his PCP's office today for routine check-up for medication management and was referred to the ED for further evaluation. He also notes that his blood sugar was high at the office. The patient notes that he has been vomiting recently as well. He has a history of diabetes and states that he has not been eating much recently. He denies recent weight loss. Source of History: patient Onset: A few weeks ago Symptom Intensity: Blood pressure of 186/116 Quality: other (hypertension) Timing: other (persistent) Associated Symptoms: + headache, + fatigue, + weakness (generalized) Note: Additional symptoms: dizziness. Review of Systems See HPI for pertinent positives & negatives. A total of 10 systems reviewed and were otherwise negative. Past Medical & Surgical Medical Problems: (1) accelerted HTN, obesity, DM (2) ADJUSTMENT DISORDER WITH DEPRESSED MOOD (3) ANXIETY STATE NOS (4) Benign hypertension (5) DEPRESSIVE DISORDER NEC (6) Diabetes mellitus type 2 (7) Diabetic peripheral neuropathy associated with type 2 diabetes mellitus (8) Loss of sensation (9) Morbid obesity with body mass index of 50.0-59.9 in adult (10) MRSA (11) TOBACCO USE DISORDER (12) uvulectomy Social History Problems: (1) Learning disability Family History Diabetes mellitus FHx: asthma Social History Smoking Status: Former Smoker Alcohol Use: none Drug Use: none Marital Status: Housing Status: lives with family Current/Historical Medications Scheduled Amlodipine (Norvasc), 10 MG PO QAM Aspirin (Aspirin Ec), 81 MG PO QAM Atorvastatin (Lipitor), 20 MG PO HS Canagliflozin (Invokana), 100 MG PO QAM Carvedilol (Coreg), 1 TAB PO BID Cholecalciferol (Vitamin D3), 2 TAB PO BID Dulaglutide (Trulicity), 1.5 MG SC WK Duloxetine Hcl (Cymbalta), 60 MG PO QAM Furosemide (Lasix), 40 MG PO QAM Gabapentin (Neurontin), 400 MG PO TID Hctz/Spironolactone 25MG/25MG (Aldactazide 25MG/25MG), 1 TAB PO BID Hydralazine Hcl (Apresoline), 100 MG PO TID Insulin Lispro Protamine & Lis (Humalog Mix 50/50), 120 UNITS SC AMPM Labetalol Hcl (Labetalol Hcl), 300 MG PO BID Losartan Potassium (Cozaar), 100 MG PO QAM Meloxicam (Mobic), 15 MG PO BID Metformin Hcl (Glucophage), 1,000 MG PO BIDM Sucralfate (Sucralfate), 1 GM PO QID Scheduled PRN Ibuprofen (Motrin), 600 MG PO Q6H PRN for Pain Tramadol (Ultram), 50 MG PO Q8H PRN for Pain Miscellaneous Medications Cyclobenzaprine Hcl (Cyclobenzaprine Hcl) Spironolactone (Aldactone), 25 MG PO Allergies Coded Allergies: Ceftriaxone (Verified Allergy, Severe, SHORTNESS OF BREATH, 04/09/17) Lidocaine (Verified Allergy, Severe, SHORTNESS OF BREATH, diaphoretic, hives, 04/09/17) pt unable to give further information on when reaction occured Procaine (Verified Allergy, Severe, SHORTNESS OF BREATH, diaphoretic, hives, 04/09/17) pt unable to give further information on when reaction occured Lisinopril (Verified Allergy, Intermediate, HIVES, 04/09/17) Albuterol (Verified Allergy, Mild, proair "trouble taking breaths", ) Amoxicillin (Verified Allergy, Unknown, HIVES/FACIAL SWELLING, 04/09/17) Clavulanic Acid (Verified Allergy, Unknown, ., 04/09/17) Acetaminophen (Verified Adverse Reaction, Unknown, NAUSEA, 04/09/17) Physical Exam Vital Signs Date Time Temp Pulse Resp B/P (MAP) Pulse Ox O2 Delivery O2 Flow Rate FiO2 04/30/17 14:05 93 15 158/114 95 Room Air 04/30/17 14:01 72 204/120 04/30/17 13:31 74 172/114 96 04/30/17 13:05 71 92 04/30/17 13:00 80 19 164/118 94 Room Air 04/30/17 12:31 79 18 181/114 97 Room Air 04/30/17 12:03 87 04/30/17 11:04 100 18 185/116 96 Room Air 04/30/17 10:45 36.5 97 20 224/137 96 Room Air Physical Exam CONSTITUTIONAL/VITAL SIGNS: Reviewed / noted above. GENERAL: Non-toxic in appearance. INTEGUMENTARY: Warm, dry, and [place]. HEAD: Normocephalic. EYES: without scleral icterus or trauma. ENT/OROPHARYNX: clear and moist. LYMPHADENOPATHY/NECK: Is supple without lymphadenopathy or meningismus. RESPIRATORY: Lungs clear and equal. CARDIOVASCULAR: Regular rate and rhythm. GI/ABDOMEN: Soft and nontender. No organomegaly or pulsatile mass. No rebound or guarding. Normal bowel sounds. EXTREMITIES: Warm and well perfused. BACK: No CVA tenderness. NEUROLOGICAL: Intact without focal deficits. PSYCHIATRIC: normal affect. MUSCULOSKELETAL: Normally developed with good muscle tone. Medical Decision & Procedures ER Provider Diagnostic Interpretation: Radiology results as stated below per my review and radiologist interpretation: CHEST ONE VIEW PORTABLE FINDINGS: Atherosclerosis of aortic arch. Cardiac silhouette enlarged. Mild pulmonary vascular prominence. Lungs and pleural spaces clear. Degenerative changes of the thoracic spine. IMPRESSION: 1. Cardiomegaly with suggestion of mild volume overload. No jose pulmonary edema. Electronically signed by: Negro Schroeder M.D. 04/30/2017 12:28 PM Laboratory Results 04/30/17 11:40 Red Blood Count 4.86, Mean Corpuscular Volume 84.8, Mean Corpuscular Hemoglobin 29.4, Mean Corpuscular Hemoglobin Concent 34.7, Mean Platelet Volume 9.8, Neutrophils (%) (Auto) 62.1, Lymphocytes (%) (Auto) 30.5, Monocytes (%) (Auto) 6.0, Eosinophils (%) (Auto) 0.6, Basophils (%) (Auto) 0.2, Neutrophils # (Auto) 5.02, Lymphocytes # (Auto) 2.47, Monocytes # (Auto) 0.49, Eosinophils # (Auto) 0.05, Basophils # (Auto) 0.02 04/30/17 11:40 Test 3/19/18 11:08 04/30/17 11:40 04/30/17 12:05 Bedside Glucose 156 mg/dl (70-99) White Blood Count 8.10 K/uL (4.8-10.8) Red Blood Count 4.86 M/uL (4.7-6.1) Hemoglobin 14.3 g/dL (14.0-18.0) Hematocrit 41.2 % (42-52) Mean Corpuscular Volume 84.8 fL (80-100) Mean Corpuscular Hemoglobin 29.4 pg (25-34) Mean Corpuscular Hemoglobin Concent 34.7 g/dl (32-36) Platelet Count 149 K/uL (130-400) Mean Platelet Volume 9.8 fL (7.4-10.4) Neutrophils (%) (Auto) 62.1 % Lymphocytes (%) (Auto) 30.5 % Monocytes (%) (Auto) 6.0 % Eosinophils (%) (Auto) 0.6 % Basophils (%) (Auto) 0.2 % Neutrophils # (Auto) 5.02 K/uL (1.4-6.5) Lymphocytes # (Auto) 2.47 K/uL (1.2-3.4) Monocytes # (Auto) 0.49 K/uL (0.11-0.59) Eosinophils # (Auto) 0.05 K/uL (0-0.5) Basophils # (Auto) 0.02 K/uL (0-0.2) RDW Standard Deviation 43.1 fL (36.4-46.3) RDW Coefficient of Variation 13.9 % (11.5-14.5) Immature Granulocyte % (Auto) 0.6 % Immature Granulocyte # (Auto) 0.05 K/uL (0.00-0.02) Prothrombin Time 10.0 SECONDS (9.0-12.0) Prothromb Time International Ratio 1.0 (0.9-1.1) Activated Partial Thromboplast Time 26.4 SECONDS (21.0-31.0) Partial Thromboplastin Ratio 1.0 Anion Gap 7.0 mmol/L (3-11) Est Creatinine Clear Calc Drug Dose 209.3 ml/min Estimated GFR () 135.2 Estimated GFR (Non- 116.7 BUN/Creatinine Ratio 19.2 (10-20) Calcium Level 8.5 mg/dl (8.5-10.1) Magnesium Level 1.9 mg/dl (1.8-2.4) Total Bilirubin 0.4 mg/dl (0.2-1) Direct Bilirubin 0.1 mg/dl (0-0.2) Aspartate Amino Transf (AST/SGOT) 14 U/L (15-37) Alanine Aminotransferase (ALT/SGPT) 29 U/L (12-78) Alkaline Phosphatase 87 U/L (45-117) Total Creatine Kinase 148 U/L (39-308) Creatine Kinase MB 2.0 ng/ml (0.5-3.6) Creatine Kinase MB Ratio 1.4 (0-3.0) Troponin I 0.018 ng/ml (0-0.045) Total Protein 7.3 gm/dl (6.4-8.2) Albumin 3.4 gm/dl (3.4-5.0) Lipase 159 U/L (73-393) Thyroid Stimulating Hormone (TSH) 1.960 uIu/ml (0.300-4.500) Laboratory results as stated above per my review. Medications Administered Medications (Trade) Dose Ordered Sig/[place]aby Route Start Time Stop Time Status Last Admin Dose Admin Sodium Chloride 1,000 ml @ 999 mls/hr Q1H1M STAT IV 04/30/17 12:05 04/30/17 13:05 DC 04/30/17 12:31 999 MLS/HR ECG Per My Interpretation Indication: weakness Rate (beats per minute): 91 Rhythm: normal sinus Findings: no ectopy, other (No ST elevation.) ED Course 1143: Previous medical records were reviewed. The patient was evaluated in room C7. A complete history and physical examination was performed. 1205: Ordered Sodium Chloride 1000 ml @ 999 mls/hr IV. 1412: On reevaluation, the patient is resting comfortably. I discussed the results and findings with him. He verbalized agreement of the treatment plan. I spoke with Dr. Gonzalez of the [facility]. The patient will be evaluated for further management and care. Medical Decision Differential diagnosis: Etiologies such as benign hypertension, hypertensive emergency, cardiovascular pathology, pheochromocytoma, electrolyte abnormality, renal disease, endorgan damage, as well as others were entertained. This is a 41-year-old male who presents to the ED with a chief complaint of hypertension and hyperglycemia. The patient was sent here from Dr. Byrd's office for further evaluation. The patient was seen at their office by the nurse earlier today and had significant hypertension and also had reported feeling drowsy well at work over the past several Saturdays. He also reported coughing up a little blood today. The patient denies any chest pains or shortness of breath. He has not had a recent illness or fever. I did discuss the patient with Dr. Byrd, his follow up clerk. The patient's follow up clerk is concerned about the patient's welfare as he is on multiple antihypertensives and despite this is still very hypertensive. He feels that there may be benefit to observe the patient and make sure that he is taking his appropriate medications for his blood pressure. The patient's evaluation included an EKG that shows normal sinus rhythm without ischemic changes. His chest x-ray was negative for acute disease. CBC and complete metabolic panel were unremarkable. His glucose was 155. His TSH was normal. The patient blood pressure was initially 185/116. On recheck it was 172/114. Although the patient does not have any endorgan damage and is not in any acute distress with his hypertension, the patient is felt to be a poor advocate and has poor compliance due to his lack of intellectual capability and was felt that an observation would be beneficial to help to determine if the patient's blood pressure is appropriately controlled on his current medications or if compliance is an issue. Medication Reconcilliation Current Medication List: was personally reviewed by me Blood Pressure Screening Patient's blood pressure: Elevated blood pressure Blood pressure disposition: Referred to PCP Consults Time Called: [phone] Consulting Physician: Dr. Byrd - Nephrology Returned Call: [phone] Discussed the patient's case. Dr. Byrd is concerned about the patient's ability to manage his medication appropriately. He feels that the patient needs his blood pressure controlled, as he is already on multiple medications for blood pressure. Dr. Byrd feels that the patient would benefit from inpatient care to set him up with proper hypertensive management. Additional Consults: Time Called: [phone] Consulted Physician: Dr. Gonzalez - [facility] Returned Call: [phone] Additional Comments: Discussed the patient's case. The patient will be evaluated for further treatment and disposition. Impression Primary Impression: Accelerated hypertension Additional Impression: Drowsiness Scribe Attestation The scribe's documentation has been prepared under my direction and personally reviewed by me in its entirety. I confirm that the note above accurately reflects all work, treatment, procedures, and medical decision making performed by me. Departure Information Dispostion Being Evaluated By Hospitalist Bertrand Arauz M.D. (PCP) Patient Instructions [facility] Problem Qualifiers
[2017-04-30] MEDS ORDERED: ACETAMINOPHEN 325 MG TAB PO PRN (14:45)
[2017-04-30] MEDS ORDERED: ONDANSETRON INJ 2 MG/ML 2 ML VIAL IV PRN (14:45)
[2017-04-30] MEDS ORDERED: POLYETHYLENE (MIRALAX) 17 GM PACK PO PRN (14:45)
[2017-04-30] MEDS ORDERED: MAGNESIUM HYDROXIDE SUSP 30 ML UDC PO PRN (14:45)
[2017-04-30] MEDS ORDERED: HydrALAZINE HCL 20 MG/ML VIAL IV PRN (14:45)
[2017-04-30] MEDS ORDERED: ALUMINUM/MAGNESIUM/SIMETH (MAALOX MAX) 30 ML UDC PO PRN (14:45)
[2017-04-30] MEDS ORDERED: INSULIN LISPRO PROTAMINE SC SCH (14:45)
[2017-04-30] MEDS ORDERED: TRAMADOL HCL 50 MG TAB PO PRN (14:45)
[2017-04-30] MEDS ORDERED: INSULIN LISPRO SC SCH (14:45)
[2017-04-30] MEDS ORDERED: [UNRECOGNIZED DRUG - OTHER] SC SCH (14:45)
[2017-04-30] MEDS ORDERED: OXYCODONE HCL IR 5 MG TAB (IMMEDIATE RELEASE) PO PRN (15:00)
[2017-04-30] MEDS ORDERED: FAMOTIDINE IV INJ 20 MG in DEXTROSE 5% 100ML 100 ML IV SCH (15:00)
--- NOTE | 2017-04-30 15:17 | History and Physical ---
History & Physical Date & Time of Service: Apr 30, 2017 at 15:12 Chief Complaint: High Blood Pressure, Sugar, Dizzy - Dr Byrd Primary Care Physician: Bertrand Briceno M.D. History of Present Illness 41-year-old male referred to us from the nephrology clinic due to accelerated hypertension. This patient has some learning disabilities and there is some concern he has difficulty understanding his complex antihypertensive regimen which contains at least 5 medications. Likewise he is dietarily indiscrete but also has been having problems with oral intake due to postprandial nausea. The patient is a history of fatty liver and previous cholecystectomy and is diabetic. The patient takes multiple medicines for his diabetes and on admission does not have any issues with LFT abnormalities or lipase elevation. Patient is not forthright with describing the frequency of his bowel movements although he does state they have been dark in the past likewise his vomitus contained some blood in his own account. The patient states that in the past he has had 6 upper endoscopies and has never been found to have an ulcer and the patient also does take daily meloxicam for arthritic pains mostly in his back from his morbid obesity with a BMI of 59. 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 (13) Cellulitis of right foot (17) DEPRESSIVE DISORDER NEC (18) Dermatitis (20) Diabetes mellitus type 2 (22) Diabetic peripheral neuropathy associated with type 2 diabetes mellitus (23) Diffuse abdominal pain (24) Epigastric pain (25) GI bleed (29) Hypocalcemia (30) Hypomagnesemia (39) Morbid obesity with body mass index of 50.0-59.9 in adult (40) MRSA (43) Obstructive sleep apnea (46) Rash (54) Swelling of lower extremity (58) uvulectomy Family History Diabetes mellitus FHx: asthma Social History Smoking Status: Former Smoker Smokeless Tobacco Use: No Drug Use: none Marital Status: Housing status: lives with family Immunizations History of Influenza Vaccine: Yes Influenza Vaccine Date: Nov 16, 2011 History of Tetanus Vaccine?: Yes History of Pneumococcal: Unknown Pneumococcal Date: Aug 07, 2012 History of Hepatitis B Vaccine: No Allergies Coded Allergies: Ceftriaxone (Verified Allergy, Severe, SHORTNESS OF BREATH, 04/09/17) Lidocaine (Verified Allergy, Severe, SHORTNESS OF BREATH, diaphoretic, hives, 04/09/17) pt unable to give further information on when reaction occured Procaine (Verified Allergy, Severe, SHORTNESS OF BREATH, diaphoretic, hives, 04/09/17) pt unable to give further information on when reaction occured Lisinopril (Verified Allergy, Intermediate, HIVES, 04/09/17) Albuterol (Verified Allergy, Mild, proair "trouble taking breaths", ) Amoxicillin (Verified Allergy, Unknown, HIVES/FACIAL SWELLING, 04/09/17) Clavulanic Acid (Verified Allergy, Unknown, ., 04/09/17) Acetaminophen (Verified Adverse Reaction, Unknown, NAUSEA, 04/09/17) Home Medications Scheduled Amlodipine (Norvasc), 10 MG PO QAM Aspirin (Aspirin Ec), 81 MG PO QAM Atorvastatin (Lipitor), 20 MG PO HS Canagliflozin (Invokana), 100 MG PO QAM Carvedilol (Coreg), 1 TAB PO BID Cholecalciferol (Vitamin D3), 2 TAB PO BID Dulaglutide (Trulicity), 1.5 MG SC WK Duloxetine Hcl (Cymbalta), 60 MG PO QAM Furosemide (Lasix), 40 MG PO QAM Gabapentin (Neurontin), 400 MG PO TID Hctz/Spironolactone 25MG/25MG (Aldactazide 25MG/25MG), 1 TAB PO BID Hydralazine Hcl (Apresoline), 100 MG PO TID Insulin Lispro Protamine & Lis (Humalog Mix 50/50), 120 UNITS SC AMPM Labetalol Hcl (Labetalol Hcl), 300 MG PO BID Losartan Potassium (Cozaar), 100 MG PO QAM Meloxicam (Mobic), 15 MG PO BID Metformin Hcl (Glucophage), 1,000 MG PO BIDM Sucralfate (Sucralfate), 1 GM PO QID Scheduled PRN Ibuprofen (Motrin), 600 MG PO Q6H PRN for Pain Tramadol (Ultram), 50 MG PO Q8H PRN for Pain Miscellaneous Medications Cyclobenzaprine Hcl (Cyclobenzaprine Hcl) Spironolactone (Aldactone), 25 MG PO Review of Systems ROS: well nourished well developed. No double vision blurry vision No problems with speech or swallowing No palpitations, chest pain or pressure No Wheezing or breathing issues Patient has diffuse abdominal pain worse in the lower quadrants associated with some nausea and vomiting of some blood also having some dark bowel movements No burning urine but does have but no urine frequency but no changes in color diffuse focal joint pain in his knees hips and back beginning changes of venous stasis dermatitis No skin rashes or oral lesions patient is stocking glove neuropathy No unusual bruising or bleeding Patient is stocking glove neuropathy No changes in memory or confusion but does seem to have some mild learning impairment Physical Exam Vital Signs Date Time Temp Pulse Resp B/P (MAP) Pulse Ox O2 Delivery O2 Flow Rate FiO2 04/30/17 15:01 172/118 04/30/17 14:59 98 21 95 Room Air 04/30/17 14:56 89 18 190/129 96 Room Air 04/30/17 14:05 93 15 158/114 95 Room Air 04/30/17 14:01 72 204/120 04/30/17 13:31 74 172/114 96 04/30/17 13:05 71 92 04/30/17 13:00 80 19 164/118 94 Room Air 04/30/17 12:31 79 18 181/114 97 Room Air 04/30/17 12:03 87 04/30/17 11:04 100 18 185/116 96 Room Air 04/30/17 10:45 36.5 97 20 224/137 96 Room Air General Appearance: + mild distress, + obese Head: normocephalic, atraumatic Eyes: normal inspection, sclerae normal Neck: supple, no JVD Respiratory/Chest: chest non-tender, lungs clear, normal breath sounds Cardiovascular: regular rate, rhythm, no murmur Abdomen/GI: normal bowel sounds, soft, + tenderness Back: no CVA tenderness, normal range of motion Extremities/Musculoskelatal: normal inspection, no calf tenderness, normal capillary refill Neurologic/Psych: alert, oriented x 3 Skin: normal color, no rash, + pertinent finding Diagnostics Laboratory Results Results Past 24 Hours Test 3/19/18 11:08 04/30/17 11:40 04/30/17 14:20 Range/Units Bedside Glucose 156 70-99 mg/dl White Blood Count 8.10 4.8-10.8 K/uL Red Blood Count 4.86 4.7-6.1 M/uL Hemoglobin 14.3 14.0-18.0 g/dL Hematocrit 41.2 42-52 % Mean Corpuscular Volume 84.8 80-100 fL Mean Corpuscular Hemoglobin 29.4 25-34 pg Mean Corpuscular Hemoglobin Concent 34.7 32-36 g/dl Platelet Count 149 130-400 K/uL Mean Platelet Volume 9.8 7.4-10.4 fL Neutrophils (%) (Auto) 62.1 % Lymphocytes (%) (Auto) 30.5 % Monocytes (%) (Auto) 6.0 % Eosinophils (%) (Auto) 0.6 % Basophils (%) (Auto) 0.2 % Neutrophils # (Auto) 5.02 1.4-6.5 K/uL Lymphocytes # (Auto) 2.47 1.2-3.4 K/uL Monocytes # (Auto) 0.49 0.11-0.59 K/uL Eosinophils # (Auto) 0.05 0-0.5 K/uL Basophils # (Auto) 0.02 0-0.2 K/uL RDW Standard Deviation 43.1 36.4-46.3 fL RDW Coefficient of Variation 13.9 11.5-14.5 % Immature Granulocyte % (Auto) 0.6 % Immature Granulocyte # (Auto) 0.05 0.00-0.02 K/uL Prothrombin Time 10.0 9.0-12.0 SECONDS Prothromb Time International Ratio 1.0 0.9-1.1 Activated Partial Thromboplast Time 26.4 21.0-31.0 SECONDS Partial Thromboplastin Ratio 1.0 Sodium Level 138 136-145 mmol/L Potassium Level 3.7 3.5-5.1 mmol/L Chloride Level 105 98-107 mmol/L Carbon Dioxide Level 26 21-32 mmol/L Anion Gap 7.0 3-11 mmol/L Blood Urea Nitrogen 14 7-18 mg/dl Creatinine 0.72 0.60-1.40 mg/dl Est Creatinine Clear Calc Drug Dose 209.3 ml/min Estimated GFR () 135.2 Estimated GFR (Non- 116.7 BUN/Creatinine Ratio 19.2 10-20 Random Glucose 155 70-99 mg/dl Calcium Level 8.5 8.5-10.1 mg/dl Magnesium Level 1.9 1.8-2.4 mg/dl Total Bilirubin 0.4 0.2-1 mg/dl Direct Bilirubin 0.1 0-0.2 mg/dl Aspartate Amino Transf (AST/SGOT) 14 15-37 U/L Alanine Aminotransferase (ALT/SGPT) 29 12-78 U/L Alkaline Phosphatase 87 45-117 U/L Total Creatine Kinase 148 39-308 U/L Creatine Kinase MB 2.0 0.5-3.6 ng/ml Creatine Kinase MB Ratio 1.4 0-3.0 Troponin I 0.018 0-0.045 ng/ml Total Protein 7.3 6.4-8.2 gm/dl Albumin 3.4 3.4-5.0 gm/dl Lipase 159 73-393 U/L Thyroid Stimulating Hormone (TSH) 1.960 0.300-4.500 uIu/ml Urine Color YELLOW Urine Appearance CLEAR CLEAR Urine pH 6.5 4.5-7.5 Urine Specific [place] 1.021 1.000-1.030 Urine Protein 1+ NEG Urine Glucose (UA) NEG NEG Urine Ketones NEG NEG Urine Occult Blood NEG NEG Urine Nitrite NEG NEG Urine Bilirubin NEG NEG Urine Urobilinogen NEG NEG Urine Leukocyte Esterase NEG NEG Urine WBC (Auto) 1-5 0-5 /hpf Urine RBC (Auto) 0-4 0-4 /hpf Urine Hyaline Casts (Auto) 0 0-5 /lpf Urine Epithelial Cells (Auto) 20-30 0-5 /lpf Urine Bacteria (Auto) NEG NEG CXR normal other (lvh) Impression Assessment and Plan 41-year-old male here with accelerated hypertension diffuse abdominal pain and some vomiting With regard to his accelerated hypertension the patient is supposedly on amlodipine 10 a day Lasix 40 twice daily hydralazine 100 q. 8 labetalol 300 every 8 losartan 100 a day and spironolactone hydrochlorothiazide twice a day despite this fact he is continues to be hypertensive however he is not suffering from any headache or chest pain. 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 We will continue his regimen have a social service consult and nephrology consult try to attempt to streamline his medication list. We will not enact any invasive workup at this time unless directed by Dr. Hayes With regard to his diabetes he is on significant outpatient care including 120 units twice daily of insulin 50/50 metformin 1000 twice daily Invokana enteroliths that he. I spoke personally to the glycemic pharmacist we went through his old records of his last hospital stay he did require much less basal bolus insulin was reduced to Lantus 20 twice daily with sliding scale will be on a diabetic diet With regard to his neuropathy does continue to be a big problem for him to maintain his Neurontin 400 3 times a day patient suffers from anxiety and depression is maintained on Cymbalta DVT prevention is Lovenox Resuscitation Status VTE Prophylaxis Will order VTE Prophylaxis: Yes (lovenox)
[2017-04-30 15:20] VITALS: O2SAT 95; BMI 59.4
[2017-04-30] MEDS ORDERED: IV FLUIDS COMPLETED PRN (15:30)
[2017-04-30] MEDS ORDERED: GLUCOSE 40% GEL 15 GM TUBE PO PRN (15:45)
[2017-04-30] MEDS ORDERED: DEXTROSE 50% 50 ML SYR IV PRN (15:45)
[2017-04-30] MEDS ORDERED: GLUCOSE 10 TABS/TUBE PO PRN (15:45)
[2017-04-30] MEDS ORDERED: GLUCAGON FOR INJ 1 MG VIAL SQ PRN (15:45)
--- NOTE | 2017-04-30 16:34 | DIAGNOSTIC IMAGING REPORT ---
ABDOMEN 2 VIEWS HISTORY: 41 years-old Male eval for obstipation acute generalized abdominal pain with constipation COMPARISON: CT abdomen and pelvis 01/25/2017 TECHNIQUE: 2 views of the abdomen FINDINGS: Cholecystectomy clips noted. Mildly dilated loop of small bowel within left upper abdomen measures up to 4.0 cm. No pneumatosis or pneumoperitoneum. The remainder of the bowel appears to be within normal limits. Moderate stool volume of the cecum and ascending colon. No renal calculi or ureteral calculi. Cholecystectomy clips noted. Indeterminate 3.7 cm metallic density projects over the left midabdomen, possibly external to the patient. Degenerative changes are seen throughout the spine and pelvis. The heart appears enlarged. IMPRESSION: 1. Mildly dilated loop of small bowel within the left upper abdomen may reflect focal ileus. The bowel gas pattern is nonobstructive. 2. No pneumatosis or pneumoperitoneum. 3. Moderate stool volume of the cecum and ascending colon. 4. Prior cholecystectomy. The above report was generated using voice recognition software. It may contain grammatical, syntax or spelling errors. Electronically signed by: Petr Irby M.D. 04/30/2017 4:32 PM Dictated Date/Time: 04/30/2017 4:29 PM
[2017-04-30 17:39] VITALS: BP 171/121; PULSE 90; TEMP 36.5; O2SAT 93
[2017-04-30 18:20] VITALS: BP 176/125; PULSE 100; TEMP 36.6; O2SAT 94
[2017-04-30 19:31] VITALS: O2SAT 99
[2017-04-30] MEDS: SUCRALFATE 1 GM/10 ML UDC PO SCH ×2 (19:47→22:47)
[2017-04-30] MEDS: SPIRONOLACTONE/HCTZ 25-25 PO SCH (19:47)
[2017-04-30] MEDS: FUROSEMIDE 40 MG TAB PO SCH (19:48)
[2017-04-30] MEDS: LABETALOL HCL 300 MG TAB PO SCH (19:48)
[2017-04-30] MEDS: METFORMIN HCL 500 MG TAB PO SCH (19:49)
[2017-04-30] MEDS: ENOXAPARIN 40 MG/0.4 ML SYR SC SCH (19:50)
[2017-04-30] MEDS: FAMOTIDINE IV INJ 20 MG in SYRINGE 3 ML IV SCH (19:51)
[2017-04-30] MEDS: INSULIN ASPART 100 UNITS/ML 3 ML PEN SC SCH ×2 (19:53→22:50)
[2017-04-30 20:47] VITALS: BP 159/112
[2017-04-30] MEDS: GABAPENTIN 400 MG CAP PO SCH (22:48)
[2017-04-30] MEDS: MELOXICAM 7.5 MG TAB PO SCH (22:48)
[2017-04-30] MEDS: ATORVASTATIN 20 MG TAB PO SCH (22:48)
[2017-04-30] MEDS: INSULIN GLARGINE SOLOSTAR 100 UNITS/ML 3 ML PEN SC SCH (22:51)
[2017-04-30 22:57] VITALS: PULSE 88; O2SAT 98
[2017-05-01] VITALS (10 sets, daily range): BP systolic 124–179; BP diastolic 77–114; PULSE 72–91; TEMP 36.4–36.8; O2SAT 90–96; Ht 170.2 cm; Wt 167.6 kg
[2017-05-01 07:22] LABS: CALCIUM 8.6 mg/dl (8.5-10.1); CREATININE 0.95 mg/dl (0.60-1.40); POTASSIUM 3.6 mmol/L (3.5-5.1)
[2017-05-01 07:34] LABS: HEMOGLOBIN A1C 8.3 % (4.5-5.6)
[2017-05-01] MEDS ORDERED: AMLODIPINE BESYLATE 5 MG TAB PO SCH (09:00)
[2017-05-01] MEDS: SPIRONOLACTONE/HCTZ 25-25 PO SCH (09:13)
[2017-05-01] MEDS: DULOXETINE HCL 60 MG CAP PO SCH (09:13)
[2017-05-01] MEDS: GABAPENTIN 400 MG CAP PO SCH ×3 (09:13→20:20)
[2017-05-01] MEDS: METFORMIN HCL 500 MG TAB PO SCH ×2 (09:13→18:33)
[2017-05-01] MEDS: MELOXICAM 7.5 MG TAB PO SCH ×2 (09:13→20:20)
[2017-05-01] MEDS: LABETALOL HCL 300 MG TAB PO SCH ×3 (09:13→20:20)
[2017-05-01] MEDS: ASPIRIN 81 MG ECTAB PO SCH (09:14)
[2017-05-01] MEDS: LOSARTAN POTASSIUM 50 MG TAB PO SCH (09:14)
[2017-05-01] MEDS: FUROSEMIDE 40 MG TAB PO SCH ×2 (09:14→18:33)
[2017-05-01] MEDS: SUCRALFATE 1 GM/10 ML UDC PO SCH ×4 (09:15→20:21)
[2017-05-01] MEDS: INSULIN ASPART 100 UNITS/ML 3 ML PEN SC SCH ×4 (09:16→20:26)
[2017-05-01] MEDS: INSULIN GLARGINE SOLOSTAR 100 UNITS/ML 3 ML PEN SC SCH ×2 (09:17→20:24)
[2017-05-01] MEDS: FAMOTIDINE IV INJ 20 MG in SYRINGE 3 ML IV SCH ×2 (09:25→20:21)
[2017-05-01 11:17] LABS: HEMOGLOBIN 14.2 g/dL (14.0-18.0); MEAN CELL VOLUME 85.1 fL (80-100); MEAN CORPUSCULAR HEMOGLOBIN 29.5 pg (25-34); MEAN CORPUSCULAR HGB CONC 34.6 g/dl (32-36); MEAN PLATELET VOLUME 9.6 fL (7.4-10.4); PLATELET COUNT 152 K/uL (130-400); RED CELL DISTRIBUTION WIDTH CV 14.2 % (11.5-14.5); WHITE BLOOD COUNT 10.44 K/uL (4.8-10.8)
--- NOTE | 2017-05-01 15:23 | Nephrology Consultation ---
Nephrology Consultation Date & Providers Date of Consultation: May 01, 2017. Primary Care Provider: Bertrand Briceno M.D. Referring Provider: Reason for Consultation Resistant HTN History of Present Illness Mr. Huff is a 41-year-old white male who is seen at the request of Dr. Gonzalez for evaluation of resistant hypertension. Medical records in the office and hospital EMR were reviewed. The patient has undergone a thorough evaluation for secondary causes of hypertension by Dr. Kan Byrd. Evaluation has revealed normal kidney function, benign urine sediment, normal size kidneys by ultrasound, CTA of the abdomen was negative for MARY, adrenal mass or aortic stenosis. Serum renin, aldosterone and metanephrine levels were checked and found to be within normal limits. Thyroid function studies and serum cortisol were also noted to be normal. The patient has a learning disability. He lives at home with his . Compliance with medical therapy has been documented to be poor. Medication reconciliation with the [facility]'s pharmacy reveals that he does no refill his medications on a regular basis despite multiple phone reminders. He had not been taking his medications as prescribed. Home health nursing was ordered. Patient now has a nurse (Marily Lott LPN) that visits 3 times a week and places his medications into a pillbox. Mr. Huff's outpatient antihypertensive regimen has been Labetalol 300 mg BID, Furosemide 40 mg QAM, Hydralazine 100 mg TID, Losartan 100 mg daily, Aldactazide (spironolactone/HCTZ ) 25/25 mg QAM. Despite this regimen he presented to the office in 04/30/17 for evaluation. Systolic blood pressure was > 200 mmHg. he was subsequently admitted to the hospital for management of resistant hypertension. The patient's medical history is also significant for obesity (BMI 57.5), MARIELENA on CPAP, AODM, SOTELO, hyperlipidemia, OA, recurrent BAH,learning disability and chronic constipation. Past Medical/Surgical History Medical: # Obesity (BMI 57.5) # MARIELENA on CPAP # AODM # SOTELO # Hyperlipidemia # OA # Recurrent BAH # Learning disability # Chronic constipation Allergies Coded Allergies: Ceftriaxone (Verified Allergy, Severe, SHORTNESS OF BREATH, 04/09/17) Lidocaine (Verified Allergy, Severe, SHORTNESS OF BREATH, diaphoretic, hives, 04/09/17) pt unable to give further information on when reaction occured Procaine (Verified Allergy, Severe, SHORTNESS OF BREATH, diaphoretic, hives, 04/09/17) pt unable to give further information on when reaction occured Lisinopril (Verified Allergy, Intermediate, HIVES, 04/09/17) Albuterol (Verified Allergy, Mild, proair "trouble taking breaths", ) Amoxicillin (Verified Allergy, Unknown, HIVES/FACIAL SWELLING, 04/09/17) Clavulanic Acid (Verified Allergy, Unknown, ., 04/09/17) Acetaminophen (Verified Adverse Reaction, Unknown, NAUSEA, 04/09/17) Inpatient Medications Current Inpatient Medications Medications (Trade) Dose Ordered Sig/Faby Route Start Time Stop Time Status Last Admin Dose Admin Amlodipine Besylate (Norvasc Tab) 10 mg QAM PO 05/01/17 09:00 05/31/17 08:59 05/01/17 09:14 10 MG Aspirin (Ecotrin Tab) 81 mg QAM PO 05/01/17 09:00 05/31/17 08:59 05/01/17 09:14 81 MG Atorvastatin Calcium (Lipitor Tab) 20 mg HS PO 04/30/17 21:00 05/30/17 20:59 04/30/17 22:48 20 MG Duloxetine HCl (Cymbalta Cap) 60 mg QAM PO 05/01/17 09:00 05/31/17 08:59 05/01/17 09:13 60 MG Furosemide (Lasix Tab) 40 mg BID17 PO 04/30/17 17:00 05/30/17 16:59 05/01/17 09:14 40 MG Gabapentin (Neurontin Cap) 400 mg TID PO 04/30/17 21:00 05/30/17 20:59 05/01/17 13:22 400 MG HCTZ/ Spironolactone (Aldactazide 25/ 25 Tab) 1 tab BID17 PO 04/30/17 17:00 05/30/17 16:59 05/01/17 09:13 1 TAB Hydralazine HCl (Apresoline Tab) 100 mg TID PO 04/30/17 21:00 05/30/17 20:59 05/01/17 13:22 100 MG Labetalol HCl (Normodyne Tab) 300 mg BID PO 04/30/17 21:00 05/30/17 20:59 3/20/18 09:13 300 MG Losartan Potassium (coZAAR TAB) 100 mg QAM PO 05/01/17 09:00 05/31/17 08:59 05/01/17 09:14 100 MG Meloxicam (Mobic Tab) 15 mg BID PO 04/30/17 21:00 05/30/17 20:59 05/01/17 09:13 15 MG Metformin HCl (Glucophage Tab) 1,000 mg BIDM PO 04/30/17 18:00 05/30/17 17:59 05/01/17 09:13 1,000 MG Tramadol HCl (Ultram Tab) 50 mg Q8H PRN PO 04/30/17 14:45 05/30/17 14:44 Miscellaneous Information (Order Awaiting Action) 1 ea QS N/A 04/30/17 16:00 05/30/17 15:59 Miscellaneous Information (Order Awaiting Action) 1 ea QS N/A 04/30/17 16:00 05/30/17 15:59 Enoxaparin Sodium (Lovenox Inj) 40 mg Q24H SC 04/30/17 18:00 05/30/17 17:59 04/30/17 19:50 40 MG Acetaminophen (Tylenol Tab) 650 mg Q4H PRN PO 04/30/17 14:45 05/30/17 14:44 Al Hydrox/Mg Hydrox/Simethicone (Maalox Max Susp) 15 ml Q4H PRN PO 04/30/17 14:45 05/30/17 14:44 Magnesium Hydroxide (Milk Of Magnesia Susp) 30 ml Q12H PRN PO 04/30/17 14:45 05/30/17 14:44 Ondansetron HCl (Zofran Inj) 4 mg Q6H PRN IV 04/30/17 14:45 05/30/17 14:44 05/01/17 14:35 4 MG Polyethylene (Miralax Powder Packet) 17 gm DAILY PRN PO 04/30/17 14:45 05/30/17 14:44 Hydralazine HCl (HydrALAZINE INJ) 20 mg Q4H PRN IV 04/30/17 14:45 05/30/17 14:44 Oxycodone HCl (Roxicodone Immediate Rel Tab) 10 mg Q6 PRN PO 04/30/17 15:00 05/14/17 14:59 05/01/17 02:31 10 MG Sucralfate (Carafate Susp) 1 gm QID PO 04/30/17 17:00 05/30/17 16:59 05/01/17 13:22 1 GM Insulin Glargine (Lantus Solostar Pen) 20 units BID SC 04/30/17 21:00 05/30/17 20:59 05/01/17 09:17 20 UNITS Insulin Aspart (novoLOG ASPART) SLIDING SCALE PARAMETER ACHS SC 04/30/17 16:00 05/30/17 15:59 05/01/17 12:02 8 UNITS Miscellaneous (Iv Fluids Completed) 1 ea PRN PRN N/A 04/30/17 15:30 04/30/18 15:29 Glucose (Glucose 40% Gel) 15-30 GRAMS 15 GRAMS... UD PRN PO 04/30/17 15:45 05/30/17 15:44 Glucose (Glucose Chew Tab) 4-8 Tablets 4 Tabl... UD PRN PO 04/30/17 15:45 05/30/17 15:44 Dextrose (Dextrose 50% 50ML Syringe) 25-50ML OF 50% DW IV FOR... UD PRN IV 04/30/17 15:45 05/30/17 15:44 Glucagon (Glucagon Inj) 1 mg UD PRN SQ 04/30/17 15:45 05/30/17 15:44 Famotidine 20 mg/ Syringe 5 ml @ 2.5 mls/min Q12H IV 04/30/17 20:00 05/30/17 19:59 05/01/17 09:25 2.5 MLS/MIN Family History Diabetes mellitus FHx: asthma Multiple family members with HTN requiring medical therapy Social History Smoking Status: Former Smoker Smokeless Tobacco Use: No Drug Use: none Marital Status: Housing Status: lives with family . Resides in [place], [place]. 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 Denies tobacco or alcohol use. Does not use herbal supplements. Fills all of his medications through [facility]. Review of Systems Constitutional: No fever Respiratory: No shortness of breath Cardiovascular: No chest pain Abdomen: + nausea A complete review of systems was performed. Pertinent positives are noted above. All other systems are negative. Physical Exam Date Time Temp Pulse Resp B/P (MAP) Pulse Ox O2 Delivery O2 Flow Rate FiO2 05/01/17 14:40 177/114 (135) 05/01/17 12:00 Room Air 05/01/17 11:54 36.4 82 24 179/84 (115) 93 Room Air 05/01/17 08:00 Room Air 05/01/17 07:59 36.6 72 20 150/93 (112) 93 Nasal Cannula 2.0 05/01/17 04:05 94 Room Air 05/01/17 03:52 36.5 78 18 161/90 (113) 94 Room Air 05/01/17 03:52 36.5 78 18 161/90 (113) 94 Room Air 88 05/01/17 00:02 36.7 88 18 149/107 (121) 96 BiPAP 159/105 (123) 05/01/17 00:00 94 CPAP 04/30/17 22:57 88 98 2.0 04/30/17 20:47 159/112 (128) 04/30/17 20:00 Room Air 04/30/17 19:31 99 04/30/17 19:24 Room Air 04/30/17 18:20 36.6 100 20 176/125 (142) 94 Room Air 04/30/17 17:39 36.5 90 20 171/121 (138) 93 Room Air 04/30/17 17:35 92 20 212/141 95 04/30/17 16:31 174/115 04/30/17 16:29 91 19 96 04/30/17 16:01 197/110 04/30/17 15:59 101 23 93 04/30/17 15:31 192/116 04/30/17 15:29 89 25 96 General Appearance: + mild distress (nauseated) Head: normocephalic, atraumatic Eyes: PERRL Neck: no adenopathy Respiratory/Chest: lungs clear, no respiratory distress Cardiovascular: regular rate, rhythm Abdomen/GI: normal bowel sounds, non tender, soft Extremities/Musculoskelatal: + pertinent finding (trace pretibial edema) Neurologic/Psych: alert, oriented x 3 Laboratory Results Last 24 Hours Test 04/30/17 18:18 04/30/17 20:47 05/01/17 06:08 05/01/17 06:54 Bedside Glucose 109 mg/dl 159 mg/dl 152 mg/dl White Blood Count 10.44 K/uL Red Blood Count 4.82 M/uL Hemoglobin 14.2 g/dL Hematocrit 41.0 % Mean Corpuscular Volume 85.1 fL Mean Corpuscular Hemoglobin 29.5 pg Mean Corpuscular Hemoglobin Concent 34.6 g/dl RDW Standard Deviation 44.0 fL RDW Coefficient of Variation 14.2 % Platelet Count 152 K/uL Mean Platelet Volume 9.6 fL Sodium Level 136 mmol/L Potassium Level 3.6 mmol/L Chloride Level 102 mmol/L Carbon Dioxide Level 26 mmol/L Anion Gap 8.0 mmol/L Blood Urea Nitrogen 15 mg/dl Creatinine 0.95 mg/dl Est Creatinine Clear Calc Drug Dose 157.1 ml/min Estimated GFR () 115.6 Estimated GFR (Non- 99.7 BUN/Creatinine Ratio 15.5 Random Glucose 167 mg/dl Calcium Level 8.6 mg/dl Test 05/01/17 11:59 Bedside Glucose 151 mg/dl Impression (1) Resistant hypertension (2) Morbid obesity with body mass index of 50.0-59.9 in adult (3) Diabetes (4) Obstructive sleep apnea (5) Learning difficulties Patient admitted to the hospital for evaluation and management of resistant hypertension. Outpatient evaluation for secondary causes has been unrevealing. Lifestyle factors including morbid obesity, MARIELENA, liberal sodium intake and poor medication compliance related to learning disability are contributing factors. Recommendations Review of outpatient records shows that Mr. Huff has undergone a thorough evaluation for secondary causes of HTN. This is been unrevealing. Focus of care will need to center on correcting lifestyle factors, simplifying his antihypertensive regimen and working with psych social worker to establish a system to ensure outpatient medication compliance. Recommend the followin) Consult dietitian to provide education regarding a low sodium/weight loss diet 2) Simplify medical regimen to Labetalol, Furosemide and Losartan. Orders placed in EMR 3) Social service consult to determine whether patient and his qualify for assisted living. Patient has had repeated hospitalization for HTN due to medical noncompliance. Home health GLASS TECHNICIAN/INSTALLER is unable to greens picker patient's medications from pharmacy, administer them or perform medication reconciliation. Need process in place that will ensure delivery of medications , document witnessed administration and perform medication reconciliation after each outpatient and hospital visit 4) Monitor blood pressure during hospitalization to determine whether it improves during documented administration of medications. Will adjust antihypertensive regimen as needed and focus on trying to simplify regimen. Target SBP ~ 140 mmHg for now.
[2017-05-01] MEDS ORDERED: BISACODYL 5 MG TABEC PO ONE (15:25)
--- NOTE | 2017-05-01 15:54 | Hospitalist Progress Note ---
Hospitalist Progress Note Date of Service May 01, 2017. (Milena Massey ., LANCEC) Subjective Pt evaluation today including: conversation w/ patient, physical exam, chart review, lab review, review of inpatient medication list Pain: bilateral flank/lower back pain PO Intake: Tolerating PO diet Voiding: no voiding problems Patient complains of sharp bilateral flank pain that radiates into the back. He states that he is tolerating his diet well, however, and denies nausea or vomiting. The patient states he does have known back problems. He does note some shortness of breath at rest and with exertion. The patient denies fevers, chills, sweats, chest pain, palpitations, claudication, cough, wheezing, nausea , vomiting, dysuria, hematuria, urinary retention, paralysis, weakness, numbness and tingling. Additional Comments: See HPI for pertinent positives and negatives. All other systems reviewed and negative. (Milena Massey ., LELAND-C) Objective Vital Signs Date Time Temp Pulse Resp B/P (MAP) Pulse Ox O2 Delivery O2 Flow Rate FiO2 05/01/17 14:40 177/114 (135) 05/01/17 12:00 Room Air 05/01/17 11:54 36.4 82 24 179/84 (115) 93 Room Air 05/01/17 08:00 Room Air 05/01/17 07:59 36.6 72 20 150/93 (112) 93 Nasal Cannula 2.0 05/01/17 04:05 94 Room Air 05/01/17 03:52 36.5 78 18 161/90 (113) 94 Room Air 05/01/17 03:52 36.5 78 18 161/90 (113) 94 Room Air 88 05/01/17 00:02 36.7 88 18 149/107 (121) 96 BiPAP 159/105 (123) 05/01/17 00:00 94 CPAP 04/30/17 22:57 88 98 2.0 04/30/17 20:47 159/112 (128) 04/30/17 20:00 Room Air 04/30/17 19:31 99 04/30/17 19:24 Room Air 04/30/17 18:20 36.6 100 20 176/125 (142) 94 Room Air 04/30/17 17:39 36.5 90 20 171/121 (138) 93 Room Air 04/30/17 17:35 92 20 212/141 95 04/30/17 16:31 174/115 04/30/17 16:29 91 19 96 04/30/17 16:01 197/110 04/30/17 15:59 101 23 93 04/30/17 15:31 192/116 (Milena Massey ., PA-C) Physical Exam Notes: General appearance: +Morbidly obese. Well-developed, well-nourished, no apparent distress Head: Normocephalic, atraumatic Eyes: Normal inspection, PERRL, EOMI ENT: Normal ENT inspection, hearing grossly normal, pharynx normal Neck: Supple, no JVD, trachea midline Respiratory/Chest: Lungs clear to auscultation, normal breath sounds, no respiratory distress Cardiovascular: Regular rate & rhythm, no gallop, no murmur Abdomen/GI: +Bilateral flanks TTP. Normal bowel sounds, soft Extremities/Musculoskeletal: Normal inspection, no calf tenderness, no pedal edema Neurological/Psych: Alert, normal mood/affect, oriented x 3 Skin: Normal color, warm/dry, no rash (Milena Massey ., PA-C) Laboratory Results Last 24 Hours Test 04/30/17 18:18 04/30/17 20:47 05/01/17 06:08 05/01/17 06:54 Bedside Glucose 109 mg/dl 159 mg/dl 152 mg/dl White Blood Count 10.44 K/uL Red Blood Count 4.82 M/uL Hemoglobin 14.2 g/dL Hematocrit 41.0 % Mean Corpuscular Volume 85.1 fL Mean Corpuscular Hemoglobin 29.5 pg Mean Corpuscular Hemoglobin Concent 34.6 g/dl RDW Standard Deviation 44.0 fL RDW Coefficient of Variation 14.2 % Platelet Count 152 K/uL Mean Platelet Volume 9.6 fL Sodium Level 136 mmol/L Potassium Level 3.6 mmol/L Chloride Level 102 mmol/L Carbon Dioxide Level 26 mmol/L Anion Gap 8.0 mmol/L Blood Urea Nitrogen 15 mg/dl Creatinine 0.95 mg/dl Est Creatinine Clear Calc Drug Dose 157.1 ml/min Estimated GFR () 115.6 Estimated GFR (Non- 99.7 BUN/Creatinine Ratio 15.5 Random Glucose 167 mg/dl Calcium Level 8.6 mg/dl Test 05/01/17 11:59 Bedside Glucose 151 mg/dl (Milena Massey .LILIANA) Assessment and Plan 41 y/o male with a history of uncontrolled HTN, HLD, DM II, neuropathy, MARIELENA, fatty liver, depression/anxiety, and GERD who presents with hypertensive urgency. HTN urgency--improving -Admitted to telemetry. No acute events overnight. Pt in sinus rhythm/sinus arrhythmia with HR 60s-90s -Pt w/very complicated BP regimen at home. Pt has cognitive deficits and is illiterate per outpatient records, should strive to simplify regimen. GIS GEOGRAPHER helps w/meds [id number] -Continue Norvasc 10 mg PO qd, Lasix 40 mg PO BID, hydralazine 100 mg PO TID, HCTZ/spironolactone 25/25 mg PO BID, losartan 100 mg PO qd, and spironolactone 25 mg PO for now. Meds confirmed in outpatient records and external med history -Pt prescribed labetalol 300 mg PO TID per outpatient records and external med history, had only been on BID here. Will update med -Nephrology consulted, appreciate recs Flank/back pain, possible ileus -Abdomen x-ray shows mildly dilated loops of small bowel in LUQ with possible ileus. Gas in nonobstructive pattern. Moderate stool in cecum and ascending colon. -Dulcolax 10 mg PO qd, one dose now, Colace 100 mg PO BID, MoM and Miralax prn constipation HLD--stable -Continue Lipitor 20 mg PO qd DM II--HgbA1c 8.3 here -Invokalukasz, Trulicity held -Continue metformin 1000 mg PO BID -Lantus 20 mg PO BID -Insulin sliding scale -Check BSGs q ac and qhs Neuropathy, anxiety/depression -Continue gabapentin 400 mg PO TID, Cymbalta 60 mg PO qd MARIELENA -Continue CPAP GERD--records reviewed, pt had EGD 03/19/17 showing gastropathy, pathology showed chronic gastritis -Continue Carafate -Pepcid BID DVT prophylaxis -Enoxaparin 40 mg SC q24h Code Status -Level I, FULL RESUSCITATION STATUS (Milena Massey PA-C) I personally interviewed and examined the patient. I agree with history of present illness and physical exam mentioned above, I also performed my own history taking and examination. Past medical history and review of system has been obtained by myself I reviewed all pertinent labs and studies Reviewed current medications I discussed and formulated of the assessment and plan mentioned above. Please refer to the Summary mentioned below. 41-year-old morbidly obese man With some learning challenges presented to the ER with hypertensive urgency, possibly related to noncompliance with his blood pressure medications, or noncompliance with his BiPAP machine. Or secondary to malignant hypertension. Dr. Carvajal consult appreciated, he simplified his blood pressure regimen to facilitate compliance, currently on labetalol, Furosemide and Losartan, and blood pressure seems to be fairly controlled. Also nurse paged me for an episode of postprandial vomiting and possible gastritis, I added Protonix twice daily can be switched upon discharge to once daily. General Appearance: not in acute distress, morbidly obese dislocation or scenario Eyes: normal Sclerae, extraocular muscle intact ENT: hearing grossly normal Neck: supple Respiratory/Chest: normal air entry bilateral ,no respiratory distress, no accessory muscle use Cardiovascular: regular rate, rhythm, no murmur Abdomen: non tender, soft, no masses Extremities: no edema Neurologic/Psychiatric: Awake alert oriented times place and person moves all extremities sensation intact cranial nerves II-12 appear to be intact Skin: normal color, warm/dry, no rash Betty Ly MD, [facility] hospitalist group (Betty Rivas MD)
[2017-05-01] MEDS: ENOXAPARIN 40 MG/0.4 ML SYR SC SCH (18:34)
[2017-05-01] MEDS: PANTOprazole SOD 40 MG TAB PO SCH (20:20)
[2017-05-01] MEDS: ATORVASTATIN 20 MG TAB PO SCH (20:20)
[2017-05-01] MEDS: DOCUSATE SODIUM 100 MG CAP PO SCH (20:21)
[2017-05-02] VITALS (11 sets, daily range): BP systolic 111–145; BP diastolic 69–87; PULSE 70–89; TEMP 36.4–36.8; O2SAT 92–97
[2017-05-02 07:13] LABS: HEMATOCRIT 40.5 % (42-52); HEMOGLOBIN 13.5 g/dL (14.0-18.0); MEAN CELL VOLUME 86.2 fL (80-100); MEAN CORPUSCULAR HEMOGLOBIN 28.7 pg (25-34); MEAN CORPUSCULAR HGB CONC 33.3 g/dl (32-36); MEAN PLATELET VOLUME 9.6 fL (7.4-10.4); PLATELET COUNT 152 K/uL (130-400); RED CELL DISTRIBUTION WIDTH CV 14.2 % (11.5-14.5); RED CELL DISTRIBUTION WIDTH SD 44.6 fL (36.4-46.3); WHITE BLOOD COUNT 9.95 K/uL (4.8-10.8)
[2017-05-02 07:38] LABS: CALCIUM 8.7 mg/dl (8.5-10.1); CREATININE 0.99 mg/dl (0.60-1.40); POTASSIUM 3.8 mmol/L (3.5-5.1)
[2017-05-02 08:01] LABS: ALBUMIN 3.1 gm/dl (3.4-5.0); TOTAL PROTEIN 7.1 gm/dl (6.4-8.2)
[2017-05-02] MEDS: METFORMIN HCL 500 MG TAB PO SCH (08:03)
[2017-05-02] MEDS: GABAPENTIN 400 MG CAP PO SCH ×2 (08:03→14:16)
[2017-05-02] MEDS: LABETALOL HCL 300 MG TAB PO SCH ×2 (08:03→14:17)
[2017-05-02] MEDS: DULOXETINE HCL 60 MG CAP PO SCH (08:04)
[2017-05-02] MEDS: SUCRALFATE 1 GM/10 ML UDC PO SCH ×2 (08:04→11:45)
[2017-05-02] MEDS: FUROSEMIDE 40 MG TAB PO SCH (08:04)
[2017-05-02] MEDS: LOSARTAN POTASSIUM 50 MG TAB PO SCH (08:05)
[2017-05-02] MEDS: MELOXICAM 7.5 MG TAB PO SCH (08:05)
[2017-05-02] MEDS: PANTOprazole SOD 40 MG TAB PO SCH (08:06)
[2017-05-02] MEDS: DOCUSATE SODIUM 100 MG CAP PO SCH (08:06)
[2017-05-02] MEDS: ASPIRIN 81 MG ECTAB PO SCH (08:07)
[2017-05-02] MEDS: INSULIN ASPART 100 UNITS/ML 3 ML PEN SC SCH ×2 (08:17→11:48)
[2017-05-02] MEDS: FAMOTIDINE IV INJ 20 MG in SYRINGE 3 ML IV SCH (08:18)
[2017-05-02] MEDS: INSULIN GLARGINE SOLOSTAR 100 UNITS/ML 3 ML PEN SC SCH (08:18)
[2017-05-02] MEDS ORDERED: BISACODYL 5 MG TABEC PO SCH (09:00)
[2017-05-02] MEDS ORDERED: KETOROLAC TROMETHAMINE 30 MG/ML VIAL IV STA (11:02)
[2017-05-02] MEDS ORDERED: KETOROLAC TROMETHAMINE 30 MG/ML VIAL IV PRN (11:15)
--- NOTE | 2017-05-02 11:47 | Hospitalist Progress Note ---
Hospitalist Progress Note Date of Service May 02, 2017. (Milena Massey ., LANCEC) Subjective Pt evaluation today including: conversation w/ patient, physical exam, chart review, lab review, review of inpatient medication list Pain: 10/10 left hip, bilateral flank and lower back pain PO Intake: Tolerating PO diet Voiding: no voiding problems Last night patient had postprandial vomiting after dinner, started on PPI. Patient states he tolerated breakfast without issue. Does have history of postprandial nausea/vomiting. Patient reports feeling lightheaded earlier this morning with standing. His main complaint is a sharp 10/10 pain in his left hip , bilateral flanks, and lower back. He has had chronic lower back pain, but this is worse today. He states he has difficulty sitting up and moving around. He states he has seen Dr. Dotson in the past but needs to lose weight prior to being a good surgical candidate. The patient also complains of dyspnea on exertion but denies SOB at rest today. The patient denies fevers, chills, sweats, chest pain, palpitations, claudication, cough, wheezing, shortness of breath, nausea, vomiting, dysuria, hematuria, urinary retention, paralysis, weakness, numbness and tingling. Additional Comments: See HPI for pertinent positives and negatives. All other systems reviewed and negative. (Milena Massey ., LELAND-C) Objective Vital Signs Date Time Temp Pulse Resp B/P (MAP) Pulse Ox O2 Delivery O2 Flow Rate FiO2 05/02/17 08:08 36.7 73 18 111/77 (88) 93 Room Air 05/02/17 08:00 93 CPAP 2.0 05/02/17 04:00 93 CPAP 05/02/17 03:56 36.6 70 20 114/72 (86) 93 CPAP 2.0 05/02/17 00:05 89 97 2.0 05/02/17 00:00 92 Room Air 05/01/17 23:26 36.6 87 22 124/83 (97) 92 Room Air 05/01/17 20:00 Room Air 05/01/17 19:36 36.8 91 18 130/77 (94) 90 Room Air 05/01/17 16:00 Room Air 05/01/17 15:49 36.4 83 91 146/89 (108) 91 Room Air 05/01/17 14:40 177/114 (135) 05/01/17 12:00 Room Air 05/01/17 11:54 36.4 82 24 179/84 (115) 93 Room Air (Milena Massey ., LELAND-C) Physical Exam Notes: General appearance: +Morbidly obese. Well-developed, well-nourished, no apparent distress Head: Normocephalic, atraumatic Eyes: Normal inspection, PERRL, EOMI ENT: Normal ENT inspection, hearing grossly normal, pharynx normal Neck: Supple, no JVD, trachea midline Respiratory/Chest: Lungs clear to auscultation, normal breath sounds, no respiratory distress Cardiovascular: Regular rate & rhythm, no gallop, no murmur Abdomen/GI: +Bilateral flanks TTP L>R. Normal bowel sounds, soft Extremities/Musculoskeletal: +Left hip TTP. Lower back TTP. Normal inspection , no calf tenderness, no pedal edema Neurological/Psych: Alert, normal mood/affect, oriented x 3 Skin: Normal color, warm/dry, no rash (Milena Massey ., LELAND-C) Laboratory Results Last 24 Hours Test 05/01/17 11:59 05/01/17 14:33 05/01/17 16:28 05/01/17 20:24 Bedside Glucose 151 mg/dl 133 mg/dl 157 mg/dl 203 mg/dl Test 05/02/17 06:24 05/02/17 06:35 White Blood Count 9.95 K/uL Red Blood Count 4.70 M/uL Hemoglobin 13.5 g/dL Hematocrit 40.5 % Mean Corpuscular Volume 86.2 fL Mean Corpuscular Hemoglobin 28.7 pg Mean Corpuscular Hemoglobin Concent 33.3 g/dl RDW Standard Deviation 44.6 fL RDW Coefficient of Variation 14.2 % Platelet Count 152 K/uL Mean Platelet Volume 9.6 fL Sodium Level 135 mmol/L Potassium Level 3.8 mmol/L Chloride Level 99 mmol/L Carbon Dioxide Level 29 mmol/L Anion Gap 7.0 mmol/L Blood Urea Nitrogen 19 mg/dl Creatinine 0.99 mg/dl Est Creatinine Clear Calc Drug Dose 149.7 ml/min Estimated GFR () 110.0 Estimated GFR (Non- 94.9 BUN/Creatinine Ratio 19.5 Random Glucose 153 mg/dl Calcium Level 8.7 mg/dl Magnesium Level 1.8 mg/dl Total Bilirubin 0.6 mg/dl Aspartate Amino Transf (AST/SGOT) 15 U/L Alanine Aminotransferase (ALT/SGPT) 28 U/L Alkaline Phosphatase 85 U/L Total Protein 7.1 gm/dl Albumin 3.1 gm/dl Globulin 4.0 gm/dl Albumin/Globulin Ratio 0.8 Bedside Glucose 141 mg/dl (Milena Massey ., LILIANA) Assessment and Plan 41 y/o male with a history of uncontrolled HTN, HLD, DM II, neuropathy, MARIELENA, fatty liver, depression/anxiety, and GERD who presents with hypertensive urgency. HTN urgency--resolved -Admitted to telemetry. No acute events overnight. Pt in sinus rhythm/sinus arrhythmia with HR 80s. Tele and vitals stable, transfer to med/surg -Pt w/very complicated BP regimen at home. Pt has cognitive deficits and is illiterate per outpatient records, should strive to simplify regimen. LOGGING EQUIPMENT MECHANIC helps w/meds [id number] -Continue Lasix 40 mg PO BID, losartan 100 mg PO qd -Labetalol changed to 300 mg PO TID as per outpatient records -D/C hydralazine, HCTZ, spironolactone, amlodipine -Nephrology consulted, appreciate recs: Recommend lifestyle modifications such as low diet and weight loss. Will also simplify regimen to just labetalol, furosemide and losartan. Will need social work supervisor to help pt comply with his meds as outpatient. -Pt talked to LOGGING EQUIPMENT MECHANIC who helps manage his meds, who recommended having his meds mailed to him directly in individual dose packets rather than bottles to help with compliance. Discussed with case management Flank/back pain, possible ileus--ongoing. Pt reports passing gas and 1 BM yesterday -Abdomen x-ray shows mildly dilated loops of small bowel in LUQ with possible ileus. Gas in nonobstructive pattern. Moderate stool in cecum and ascending colon. -Dulcolax 10 mg PO qd, Colace 100 mg PO BID, MoM and Miralax prn constipation -Known lumbar disease, continue tramadol and oxycodone prn -Add Tramadol 30 mg IV q6h prn, one dose now HLD--stable -Continue Lipitor 20 mg PO qd DM II--HgbA1c 8.3 here -Invokana, Trulicity non-formulary. bringing Ben today -Continue metformin 1000 mg PO BID -Lantus 20 mg PO BID -Insulin sliding scale -Check BSGs q ac and qhs Neuropathy, anxiety/depression -Continue gabapentin 400 mg PO TID, Cymbalta 60 mg PO qd MARIELENA -Continue CPAP GERD--records reviewed, pt had EGD 03/19/17 showing gastropathy, pathology showed chronic gastritis -Continue Carafate -Pepcid BID -Protonix 40 mg PO BID added DVT prophylaxis -Enoxaparin 40 mg SC q24h Code Status -Level I, FULL RESUSCITATION STATUS (Milena Massey ., PA-C) PA Physician Supervision Note: I interviewed and examined the patient. Discussed with Milena Massey PAC and agree with findings and plan as documented in the note. Any exceptions or clarifications are listed here: None Patient is seen twice on 05/03 I will refer you to the discharge summary. Documented By: Shon Gonzalez (Shon Gonzalez M.D.)
--- NOTE | 2017-05-02 12:13 | Nephrology Progress Note ---
Nephrology Progress Note Date of Service May 02, 2017. Chief Complaint Resistant HTN Subjective Mr. Huff was seen & examined in his hospital room this morning. He complains of nausea but voices no other medical concerns. Review of Systems Constitutional: No fever Cardiovascular: No chest pain Respiratory: No dyspnea at rest Abdomen: + nausea Extremities: No leg edema A complete review of systems was performed. Pertinent positives are noted above. All other systems are negative. Vital Signs Last 8 Hrs Date Time Temp Pulse Resp B/P (MAP) Pulse Ox O2 Delivery O2 Flow Rate FiO2 05/02/17 12:03 36.5 80 22 94 2.0 05/02/17 11:43 36.5 80 22 117/69 (85) 94 Room Air 05/02/17 08:08 36.7 73 18 111/77 (88) 93 Room Air 05/02/17 08:00 93 CPAP 2.0 Last Recorded Weight Weight (Kilograms): 167.600 Physical Exam General Appearance: no apparent distress Head: normocephalic, atraumatic Eyes: PERRL, EOMI Neck: supple, no adenopathy Respiratory/Chest: lungs clear, no respiratory distress Cardiovascular: regular rate, rhythm Abdomen/GI: normal bowel sounds, non tender, soft Extremities/Musculoskelatal: no pedal edema Neurologic/Psych: alert, oriented x 3 Family History Diabetes mellitus FHx: asthma Multiple family members with HTN requiring medical therapy Social History Smoking Status: Never smoker Smokeless Tobacco Use: No Drug Use: none Marital Status: Housing Status: lives with family . Resides in [place], [place]. 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 Denies tobacco or alcohol use. Does not use herbal supplements. Fills all of his medications through [facility]'s pharmacy. Laboratory Results Past 24 Hours 05/02/17 06:24 05/02/17 06:24 Test 05/01/17 14:33 05/01/17 16:28 05/01/17 20:24 05/02/17 06:24 Bedside Glucose 133 mg/dl (70-99) 157 mg/dl (70-99) 203 mg/dl (70-99) Red Blood Count 4.70 M/uL (4.7-6.1) Mean Corpuscular Volume 86.2 fL (80-100) Mean Corpuscular Hemoglobin 28.7 pg (25-34) Mean Corpuscular Hemoglobin Concent 33.3 g/dl (32-36) RDW Standard Deviation 44.6 fL (36.4-46.3) RDW Coefficient of Variation 14.2 % (11.5-14.5) Mean Platelet Volume 9.6 fL (7.4-10.4) Anion Gap 7.0 mmol/L (3-11) Est Creatinine Clear Calc Drug Dose 149.7 ml/min Estimated GFR () 110.0 Estimated GFR (Non- 94.9 BUN/Creatinine Ratio 19.5 (10-20) Calcium Level 8.7 mg/dl (8.5-10.1) Magnesium Level 1.8 mg/dl (1.8-2.4) Total Bilirubin 0.6 mg/dl (0.2-1) Aspartate Amino Transf (AST/SGOT) 15 U/L (15-37) Alanine Aminotransferase (ALT/SGPT) 28 U/L (12-78) Alkaline Phosphatase 85 U/L (45-117) Total Protein 7.1 gm/dl (6.4-8.2) Albumin 3.1 gm/dl (3.4-5.0) Globulin 4.0 gm/dl (2.5-4.0) Albumin/Globulin Ratio 0.8 (0.9-2) Test 05/02/17 06:35 Bedside Glucose 141 mg/dl (70-99) Allergies Coded Allergies: Ceftriaxone (Verified Allergy, Severe, SHORTNESS OF BREATH, 04/09/17) Lidocaine (Verified Allergy, Severe, SHORTNESS OF BREATH, diaphoretic, hives, 04/09/17) pt unable to give further information on when reaction occured Procaine (Verified Allergy, Severe, SHORTNESS OF BREATH, diaphoretic, hives, 04/09/17) pt unable to give further information on when reaction occured Lisinopril (Verified Allergy, Intermediate, HIVES, 04/09/17) Albuterol (Verified Allergy, Mild, proair "trouble taking breaths", ) Amoxicillin (Verified Allergy, Unknown, HIVES/FACIAL SWELLING, 04/09/17) Clavulanic Acid (Verified Allergy, Unknown, ., 04/09/17) Acetaminophen (Verified Adverse Reaction, Unknown, NAUSEA, 04/09/17) Medications Current Inpatient Medications Medications (Trade) Dose Ordered Sig/Faby Route Start Time Stop Time Status Last Admin Dose Admin Aspirin (Ecotrin Tab) 81 mg QAM PO 05/01/17 09:00 05/31/17 08:59 05/02/17 08:07 81 MG Atorvastatin Calcium (Lipitor Tab) 20 mg HS PO 04/30/17 21:00 05/30/17 20:59 05/01/17 20:20 20 MG Duloxetine HCl (Cymbalta Cap) 60 mg QAM PO 05/01/17 09:00 05/31/17 08:59 05/02/17 08:04 60 MG Furosemide (Lasix Tab) 40 mg BID17 PO 04/30/17 17:00 05/30/17 16:59 05/02/17 08:04 40 MG Gabapentin (Neurontin Cap) 400 mg TID PO 04/30/17 21:00 05/30/17 20:59 05/02/17 08:03 400 MG Losartan Potassium (coZAAR TAB) 100 mg QAM PO 05/01/17 09:00 05/31/17 08:59 05/02/17 08:05 100 MG Meloxicam (Mobic Tab) 15 mg BID PO 04/30/17 21:00 05/30/17 20:59 05/02/17 08:05 15 MG Metformin HCl (Glucophage Tab) 1,000 mg BIDM PO 04/30/17 18:00 05/30/17 17:59 05/02/17 08:03 1,000 MG Tramadol HCl (Ultram Tab) 50 mg Q8H PRN PO 04/30/17 14:45 05/30/17 14:44 Miscellaneous Information (Order Awaiting Action) 1 ea QS N/A 04/30/17 16:00 05/30/17 15:59 Miscellaneous Information (Order Awaiting Action) 1 ea QS N/A 04/30/17 16:00 05/30/17 15:59 Enoxaparin Sodium (Lovenox Inj) 40 mg Q24H SC 04/30/17 18:00 05/30/17 17:59 05/01/17 18:34 40 MG Acetaminophen (Tylenol Tab) 650 mg Q4H PRN PO 04/30/17 14:45 05/30/17 14:44 Al Hydrox/Mg Hydrox/Simethicone (Maalox Max Susp) 15 ml Q4H PRN PO 04/30/17 14:45 05/30/17 14:44 Magnesium Hydroxide (Milk Of Magnesia Susp) 30 ml Q12H PRN PO 04/30/17 14:45 05/30/17 14:44 Ondansetron HCl (Zofran Inj) 4 mg Q6H PRN IV 04/30/17 14:45 05/30/17 14:44 05/01/17 14:35 4 MG Polyethylene (Miralax Powder Packet) 17 gm DAILY PRN PO 04/30/17 14:45 05/30/17 14:44 Hydralazine HCl (HydrALAZINE INJ) 20 mg Q4H PRN IV 04/30/17 14:45 05/30/17 14:44 Oxycodone HCl (Roxicodone Immediate Rel Tab) 10 mg Q6 PRN PO 04/30/17 15:00 05/14/17 14:59 05/01/17 02:31 10 MG Sucralfate (Carafate Susp) 1 gm QID PO 04/30/17 17:00 05/30/17 16:59 05/02/17 11:45 1 GM Insulin Glargine (Lantus Solostar Pen) 20 units BID SC 04/30/17 21:00 05/30/17 20:59 05/02/17 08:18 20 UNITS Insulin Aspart (novoLOG ASPART) SLIDING SCALE PARAMETER ACHS SC 04/30/17 16:00 05/30/17 15:59 05/02/17 11:48 5 UNITS Miscellaneous (Iv Fluids Completed) 1 ea PRN PRN N/A 04/30/17 15:30 04/30/18 15:29 Glucose (Glucose 40% Gel) 15-30 GRAMS 15 GRAMS... UD PRN PO 04/30/17 15:45 05/30/17 15:44 Glucose (Glucose Chew Tab) 4-8 Tablets 4 Tabl... UD PRN PO 04/30/17 15:45 05/30/17 15:44 Dextrose (Dextrose 50% 50ML Syringe) 25-50ML OF 50% DW IV FOR... UD PRN IV 04/30/17 15:45 05/30/17 15:44 Glucagon (Glucagon Inj) 1 mg UD PRN SQ 04/30/17 15:45 05/30/17 15:44 Famotidine 20 mg/ Syringe 5 ml @ 2.5 mls/min Q12H IV 04/30/17 20:00 05/30/17 19:59 05/02/17 08:18 2.5 MLS/MIN Bisacodyl (Dulcolax Tab) 10 mg DAILY PO 05/02/17 09:00 06/01/17 08:59 05/02/17 08:18 10 MG Docusate Sodium (coLACE CAP) 100 mg BID PO 05/01/17 21:00 05/31/17 20:59 05/02/17 08:06 100 MG Labetalol HCl (Normodyne Tab) 300 mg TID PO 05/01/17 16:00 05/30/17 15:59 05/02/17 08:03 300 MG Pantoprazole Sodium (Protonix Tab) 40 mg BID PO 05/01/17 21:00 05/05/17 20:59 05/02/17 08:06 40 MG Ketorolac Tromethamine (Toradol Inj) 30 mg Q6H PRN IV 05/02/17 11:15 05/07/17 11:14 Impression (1) Resistant hypertension (2) Morbid obesity with body mass index of 50.0-59.9 in adult (3) Diabetes (4) Obstructive sleep apnea (5) Learning difficulties Patient admitted to the hospital for evaluation and management of resistant hypertension. Outpatient evaluation for secondary causes has been unrevealing. Lifestyle factors including morbid obesity, MARIELENA, liberal sodium intake and poor medication compliance related to learning disability are contributing factors. Recommendations Review of outpatient records shows that Mr. Huff has undergone a thorough evaluation for secondary causes of HTN. This is been unrevealing. Focus of care will need to center on correcting lifestyle factors, simplifying his antihypertensive regimen and working with social media project manager to establish a system to ensure outpatient medication compliance. Recommend the followin) Consult dietitian to provide education regarding a low sodium/weight loss diet 2) Continue Labetalol, Furosemide and Losartan. Blood pressure is well controlled on this regimen when documented administration is provided 3) Social service consult to determine whether patient and his qualify for assisted living. Patient has had repeated hospitalization for HTN due to medical noncompliance. Home health GRAILS WEB APPLICATION DEVELOPER is unable to fish bait picker patient's medications from pharmacy, administer them or perform medication reconciliation. Need process in place prior to discharge that will ensure delivery of medications, document witnessed administration and perform medication reconciliation after each outpatient and hospital visit. If this cannot be accomplished patient may require assisted living environment
[2017-05-02] MEDS ORDERED: DULAGLUTIDE 1.5 MG/0.5 ML SC SCH (16:00)
[2017-05-02] MEDS ORDERED: FRS/40 PO (17:31)
--- NOTE | 2017-05-02 17:34 | Discharge Instructions ---
Discharge Instructions Date of Service May 02, 2017. Admission Reason for Admission: Uncontrolled Hypertension Discharge Discharge Diagnosis / Problem: uncontrolled blood pressure Discharge Goals Goal(s): Diagnostic testing, Therapeutic intervention Activity Recommendations Activity Limitations: as noted below Lifting Limitations: gradually increase as tolerated . Instructions / Follow-Up Instructions / Follow-Up Call your Primary Care doctor if any of the following symptoms or problems start or get worse: * Shortness of breath or difficulty breathing * Wake up at night short of breath * Chest pain * Cough * Swelling of your hands, feet, or legs * More fatigued or tired with your normal activity * Palpitations - sudden fast heart beats WEIGHT * Weigh yourself every morning after using the bathroom. * Use the same scale. * Wear the same amount of clothing. * Write your weight down on a chart. * Call your Primary Care doctor if you gain more than 2-3 pounds in 1-2 days. MEDICATIONS * Use this discharge instruction sheet for medication instructions. * Take your medications at the time your doctor ordered. * Do not skip a dose of your medicines. * If you miss a dose of medicine, take it as soon as possible, but DO NOT DOUBLE A DOSE. * Read your medicine information when you get home. * Know all of the side effects of your medicine. If in doubt, ask your pharmacist * Call your Primary Care doctor's office if you have any side effects. * Be sure all of your doctors know what medicine and herbs you take (including cold, flu, and herbal medicine). Take the following with you to your follow-up doctor appointments: * Weight Chart * Medication List * List of questions Do not drink excessive alcohol, beer or wine. Current Hospital Diet Patient's current hospital diet: Low Sodium Diet (2gm Na), Diabetes Type 2 Diet Discharge Diet Recommended Diet: Low Sodium Diet (2gm Na), Diabetes Type 2 Diet Pending Studies Studies pending at discharge: no Laboratory Results Hemoglobin A1c Test 04/30/17 11:40 Range/Units Estimated Average Glucose 192 mg/dl Hemoglobin A1c 8.3 H 4.5-5.6 % Medical Emergencies . Who to Call and When: Call 911 or go to the Emergency Room if: * If at any time you feel your situation is an emergency * You have tightness or pain in your chest that does not go away with rest or Nitroglycerin * You are very short of breath even with rest . Non-Emergent Contact Non-Emergency issues call your: Primary Care Provider, [place] Call Non-Emergent contact if: temperature is above 101, your pain is unusual for you . . "Provider Documentation" section prepared by Shon Gonzalez. .
--- NOTE | 2017-05-03 07:46 | Discharge Summary ---
Discharge Summary Date of Service May 03, 2017. Discharge Summary Admission Date: Apr 30, 2017 at 14:45 Discharge Date: May 02, 2017 Discharge Disposition: Home with services Principal Diagnosis: Uncontrolled hypertension Problems/Secondary Diagnoses: (1) Benign hypertension Status: Chronic Immunizations: Have You Had Influenza Vaccine: Yes Influenza Vaccine Date: Nov 16, 2011 History of Tetanus Vaccine?: Yes History of Pneumococcal: Unknown Pneumococcal Date: Aug 07, 2012 History of Hepatitis B Vaccine: No Consultations: Nephrology consultation Medication Reconciliation Continued Medications: Aspirin (Aspirin Ec) 81 Mg Tab 81 MG PO QAM Atorvastatin (Lipitor) 20 Mg Tab 20 MG PO HS Canagliflozin (Invokana) 100 Mg Tab 100 MG PO QAM Cholecalciferol (Vitamin D3) 1,000 Unit Tab 2 TAB PO BID, TAB 3 Refills Dulaglutide (Trulicity) 1.5 Mg/0.5 Ml Inj 1.5 MG SC WK WEDNESDAYS Duloxetine Hcl (Cymbalta) 60 Mg Cap 60 MG PO QAM Furosemide (Lasix) 40 Mg Tab 40 MG PO QAM, #60 DOSE 4 Refills (This prescription has been renewed) Gabapentin (Neurontin) 400 Mg Cap 400 MG PO TID Insulin Lispro Protamine & Lis (Humalog Mix 50/50) 1 Inj Inj 120 UNITS SC AMPM Labetalol Hcl (Labetalol Hcl) 100 Mg Tab 300 MG PO TID Losartan Potassium (Cozaar) 100 Mg Tab 100 MG PO QAM, TAB Meloxicam (Mobic) 15 Mg Tab 15 MG PO BID, TAB Metformin Hcl (Glucophage) 500 Mg Tab 1000 MG PO BIDM TWO 500 MG TABLETS TWICE DAILY WITH MEALS. Sucralfate (Sucralfate) 1 Gm/10 Ml Susp 1 GM PO QID for 30 Days, #120 DOSE Tramadol (Ultram) 50 Mg Tab 50 MG PO Q8H PRN for Pain Discontinued Medications: Amlodipine (Norvasc) 10 Mg Tab 10 MG PO QAM Cyclobenzaprine Hcl (Cyclobenzaprine Hcl) 7.5 Mg Tab Hctz/Spironolactone 25MG/25MG (Aldactazide 25MG/25MG) 1 Tab Tab 1 TAB PO BID Hydralazine Hcl (Apresoline) 100 Mg Tab 100 MG PO TID Ibuprofen (Motrin) 600 Mg Tab 600 MG PO Q6H PRN for Pain, TAB TAKE WITH FOOD Spironolactone (Aldactone) 25 Mg Tab 25 MG PO, TAB Discharge Exam Review of Systems: Constitutional: No fever, No chills Respiratory: No cough, No sputum, No shortness of breath Cardiovascular: No chest pain, No orthopnea, No edema Physical Exam: General Appearance: WD/WN, no apparent distress Eyes: normal inspection, sclerae normal Respiratory/Chest: chest non-tender, lungs clear, normal breath sounds Abdomen / GI: normal bowel sounds, non tender, soft Hospital Course 41 y/o male with a history of uncontrolled HTN, HLD, DM II, neuropathy, MARIELENA, fatty liver, depression/anxiety, and GERD who presents with hypertensive urgency. HTN urgency--resolved Lasix 40 mg PO BID, losartan 100 mg PO qd -Labetalol changed to 300 mg PO TID -D/C hydralazine, HCTZ, spironolactone, amlodipine -Nephrology consulted, Reinforced lifestyle modifications such as low diet and weight loss. Will also simplify regimen to just labetalol, furosemide and losartan. Will need manager social to help pt comply with his meds as outpatient. Ms. Massey talked to DENTURES LAB TECHNICIAN who helps manage his meds, who recommended having his meds mailed to him directly in individual dose packets rather than bottles to help with compliance. Discussed with case management Flank/back pain, improved with tramadol 30 mg IV q6h prn, one dose now HLD--Lipitor 20 mg PO qd DM II--HgbA1c 8.3 here-Invokana, Trulicity metformin 1000 mg PO BID -Lantus 20 mg PO BID Neuropathy, anxiety/depression gabapentin 400 mg PO TID, Cymbalta 60 mg PO qd MARIELENA, CPAP GERD-- Carafate Total Time Spent: Greater than 30 minutes This includes examination of the patient, discharge planning, medication reconciliation, and communication with other providers. Discharge Instructions Please refer to the electronic Patient Visit Report (Discharge Instructions) for additional information.
== END 2017-05-02 18:20 | disposition home health service (06) ==
LOC: C.EDB 10:40 → UNDOADMOB 14:45 → C.2T 14:45 → ENRESERV 15:59 → C.MS4W 05-02 13:38
PROVIDERS: ADMIT Internal Medicine; ATTEND Internal Medicine
DX: I16.0 Hypertensive urgency (principal); E78.5 Hyperlipidemia, unspecified; E11.40 Type 2 diabetes mellitus with diabetic neuropathy, unspecified; G47.33 Obstructive sleep apnea (adult) (pediatric); F32.9 Major depressive disorder, single episode, unspecified; K21.9 Gastro-esophageal reflux disease without esophagitis; K75.81 Nonalcoholic steatohepatitis (NASH); F43.21 Adjustment disorder with depressed mood; F81.9 Developmental disorder of scholastic skills, unspecified; E66.01 Morbid (severe) obesity due to excess calories; Z68.43 Body mass index [BMI] 50.0-59.9, adult; Z91.19 Patient's noncompliance with other medical treatment and regimen; Z79.82 Long term (current) use of aspirin; Z79.4 Long term (current) use of insulin; Z99.89 Dependence on other enabling machines and devices; Z86.14 Personal history of Methicillin resistant Staphylococcus aureus infection; Z87.891 Personal history of nicotine dependence; Z88.4 Allergy status to anesthetic agent; Z88.0 Allergy status to penicillin; Z88.6 Allergy status to analgesic agent; Z88.8 Allergy status to other drugs, medicaments and biological substances; Z83.3 Family history of diabetes mellitus; Z82.5 Family history of asthma and other chronic lower respiratory diseases

== ENCOUNTER → 2017-04-30 | Outpatient (CLI) | payer OTHER ==
[~2017-04-30] MED LIST changes: +CARV6.25 PO; +CYCL-376; +IBUP-1450 PO; +SPIR25TA PO
[2017-04-30 10:10] LABS: ALBUMIN 3.4 gm/dl (3.4-5.0); ALT/SGPT 29 U/L (12-78); AST/SGOT 13 U/L (15-37); BLOOD UREA NITROGEN 15 mg/dl (7-18); CALCIUM 8.6 mg/dl (8.5-10.1); CARBON DIOXIDE 26 mmol/L (21-32); CREATININE 0.81 mg/dl (0.60-1.40); GLUCOSE 235 mg/dl (70-99); POTASSIUM 3.9 mmol/L (3.5-5.1); SODIUM 137 mmol/L (136-145)
[2017-04-30 10:12] LABS: ALKALINE PHOSPHATASE 91 U/L (45-117); TOTAL PROTEIN 7.5 gm/dl (6.4-8.2)
== END | disposition home or self-care (01) ==
LOC: C.LAB1850 08:42
PROVIDERS: ATTEND Internal Medicine Nephrology
DX: I10 Essential (primary) hypertension (principal)

== ENCOUNTER → 2017-06-07 | Outpatient (CLI) | payer OTHER ==
[~2017-06-07] MED LIST changes: -AMLO-114 PO; -BNC/40 PO; -HYDR100T12 PO; -PRT40 PO; -SPIR50TA PO
--- NOTE | 2017-06-07 11:55 | DIAGNOSTIC IMAGING REPORT ---
L ANKLE MIN 3 VIEWS ROUTINE CLINICAL HISTORY: Trauma. Left ankle pain. COMPARISON: None. DISCUSSION: No acute fractures or dislocations are visualized. There is a tiny spur arising from the anterior aspect of the distal tibia. IMPRESSION: No fractures or dislocations identified. Electronically signed by: Garrett Muniz M.D. 06/07/2017 11:54 AM Dictated Date/Time: 06/07/2017 11:54 AM
--- NOTE | 2017-06-07 12:01 | DIAGNOSTIC IMAGING REPORT ---
LEFT FOOT 3 VIEWS CLINICAL HISTORY: Fall with left foot pain. FINDINGS: 3 views of the left foot are compared to study dated 06/10/2012. The skeletal structures are well mineralized. No fracture is seen. The joint spaces of the foot are well-maintained. An os naviculari is incidentally noted. Mild degenerative spurring is seen along the dorsal aspect of the tarsal bones. Mild soft tissue swelling is noted along the dorsal aspect of the foot. IMPRESSION: Mild soft tissue swelling with no radiographic evidence of left foot fracture. Electronically signed by: Abhilash Carpio M.D. 06/07/2017 12:00 PM Dictated Date/Time: 06/07/2017 11:58 AM
== END | disposition home or self-care (01) ==
LOC: C.RAD1850 11:38
PROVIDERS: ATTEND Nurse Practitioner Family
DX: M79.672 Pain in left foot (principal); M25.572 Pain in left ankle and joints of left foot; M79.89 Other specified soft tissue disorders; M25.472 Effusion, left ankle

== ENCOUNTER → 2017-09-19 | Outpatient (CLI) | payer OTHER ==
[~2017-09-19] MED LIST changes: +ALBU18002 INH; -ATOR-22 PO; -CANA1TAB PO; +CHOL100026 PO; -CRFUDL PO; -DULO60CA44 PO; -FRS/40 PO; +FURO40TA3 PO; -LABE100T23 PO; +LABE200T5 PO; -MELO-84 PO; +MELO7.5T5 PO; +NYSTCRE11; +SPCCR30; -TRAM-10 PO
[2017-09-19 16:21] LABS: BASO % 0.2 %; BASO ABS # 0.02 K/uL (0-0.2); EOS ABS # 0.09 K/uL (0-0.5); HEMATOCRIT 42.5 % (42-52); HEMOGLOBIN 14.4 g/dL (14.0-18.0); IG# 0.02 K/uL (0.00-0.02); LYMPH % 29.1 %; LYMPH ABS # 2.56 K/uL (1.2-3.4); MEAN CELL VOLUME 85.5 fL (80-100); MEAN CORPUSCULAR HGB CONC 33.9 g/dl (32-36); MEAN PLATELET VOLUME 10.4 fL (7.4-10.4); MONO % 6.1 %; MONO ABS # 0.54 K/uL (0.11-0.59); NEUT % 63.4 %; NEUT ABS # 5.57 K/uL (1.4-6.5); PLATELET COUNT 164 K/uL (130-400); RED CELL DISTRIBUTION WIDTH SD 43.7 fL (36.4-46.3)
[2017-09-19 16:35] LABS: PTT PATIENT 27.7 SECONDS (21.0-31.0)
[2017-09-19 16:42] LABS: BLOOD UREA NITROGEN 14 mg/dl (7-18); CALCIUM 8.1 mg/dl (8.5-10.1); CARBON DIOXIDE 25 mmol/L (21-32); CREATININE 0.94 mg/dl (0.60-1.40); GLUCOSE 175 mg/dl (70-99); POTASSIUM 3.7 mmol/L (3.5-5.1); SODIUM 139 mmol/L (136-145)
[2017-09-20 07:03] LABS: HEMOGLOBIN A1C 7.8 % (4.5-5.6)
== END | disposition home or self-care (01) ==
LOC: C.LAB1850 15:34
PROVIDERS: ATTEND Physician Assistant
DX: E11.65 Type 2 diabetes mellitus with hyperglycemia (principal); E78.5 Hyperlipidemia, unspecified

== ENCOUNTER → 2017-09-27 | Outpatient (CLI) | payer OTHER ==
[2017-09-27 15:14] LABS: BLOOD UREA NITROGEN 13 mg/dl (7-18); CALCIUM 8.6 mg/dl (8.5-10.1); CARBON DIOXIDE 25 mmol/L (21-32); CREATININE 0.91 mg/dl (0.60-1.40); GLUCOSE 200 mg/dl (70-99); SODIUM 137 mmol/L (136-145); TRANSFERRIN 271 mg/dl (200-360)
== END | disposition home or self-care (01) ==
LOC: C.LAB1850 12:14
PROVIDERS: ATTEND Physician Assistant
DX: I42.9 Cardiomyopathy, unspecified (principal)

== ENCOUNTER 2018-01-20 08:20 | Inpatient (IN) ==
[2018-01-20] MEDS ORDERED: LABETALOL HCL IV 5 MG/ML 20ML IV STA (08:31)
[2018-01-20] MEDS ORDERED: ONDANSETRON INJ 2 MG/ML 2 ML VIAL IV STA (08:31)
[2018-01-20] MEDS ORDERED: FUROSEMIDE 40 MG/4 ML VIAL IV STA (08:38)
--- NOTE | 2018-01-20 08:57 | XRay Report ---
XR chest 1V portable CLINICAL HISTORY: tachycardia COMPARISON STUDY: 12/18/2017 FINDINGS: The heart is enlarged. There is radiographic evidence of congestive failure. Right basilar airspace opacities likely represent focal pulmonary edema. There are suspected small pleural effusion s. IMPRESSION: Cardiomegaly and radiographic evidence of congestive failure and pulmonary edema Electronically signed by: Garrett Muniz M.D. 01/20/2018 8:55 AM
[2018-01-20 09:12] LABS: Basophils # (auto) 0.01 K/uL (0-0.2); Basophils % (auto) 0.1 %; Eosinophils # (auto) 0.02 K/uL (0-0.5); Eosinophils % (auto) 0.2 %; Hematocrit (blood only) 44.4 % (42-52); Hemoglobin 15.1 g/dL (14.0-18.0); Immature Granulocytes # (auto) 0.02 K/uL (0.00-0.02); Immature Granulocytes % (auto) 0.2 %; Lymphocytes # (auto) 1.72 K/uL (1.2-3.4); Lymphocytes % (auto) 18.4 %; Mean Corpuscular Volume 85.4 fL (80-100); Mean Platelet Volume 9.7 fL (7.4-10.4); Monocytes # (auto) 0.44 K/uL (0.11-0.59); Monocytes % (auto) 4.7 %; Neutrophils # (auto) 7.12 K/uL (1.4-6.5); Neutrophils % (auto) 76.4 %; Platelet Count 150 K/uL (130-400); RDW Coefficient of Variation 14.1 % (11.5-14.5); RDW Standard Deviation 44.1 fL (36.4-46.3); White Blood Count 9.33 K/uL (4.8-10.8)
[2018-01-20 09:29] LABS: Albumin Level 3.2 gm/dl (3.4-5.0); BUN Creatinine Ratio 14.5 (10-20); Calcium 8.3 mg/dl (8.5-10.1); Creatinine Clr Calc Pharmacy 158.2 ml/min; Est GFR (African American) 116.3; Est GFR (Non-African American) 100.3; Potassium 3.6 mmol/L (3.5-5.1)
[2018-01-20 09:32] LABS: Bilirubin,Total 0.7 mg/dl (0.1-1); Globulin 3.3 gm/dl (2.5-4.0); Total Protein 6.5 gm/dl (6.4-8.2)
[2018-01-20] MEDS ORDERED: IOVERSOL 100ml IV PRN (09:45)
--- NOTE | 2018-01-20 10:00 | CT Scan Report ---
CT abd pelvis IV con only CLINICAL HISTORY: Epigastric and left lower quadrant abdominal pain COMPARISON STUDY: July 2015 TECHNIQUE: The patient was scanned in a dynamic helical fashion during intravenous administration of 94 cc of Optiray 320. A dose lowering technique was utilized adhering to the principles of ALARA. CT DOSE: 1639.44 mGy.cm FINDINGS: Lower chest: There are bilateral pleural effusions. There are bilateral lower lobe pulmonary airspace opacities, likely representing pulmonary edema. Liver: The liver is borderline enlarged. No focal hepatic masses are visualized. Gallbladder: Surgically absent Spleen: Mildly enlarged measuring 12.7 cm. No splenic masses are visualized. Pancreas: Unremarkable. Adrenal glands: Unremarkable. Kidneys: There is symmetric renal cortical enhancement. The kidneys are normal in size without hydron ephrosis. Bowel: There are no transition zones indicate bowel obstruction. The appendix appears normal. There i s no acute diverticulitis. Peritoneum: There is no intraperitoneal free air or abdominal ascites. Vasculature: The abdominal aorta is normal in course and caliber. Adenopathy: None. Pelvic viscera: The bladder, and pelvic viscera are unremarkable. Skeletal structures: There is bilateral L5 spondylolysis. There is a grade 1 spondylolisthesis of L5 on S1. There is L2-3 disc osteophyte complex. IMPRESSION: 1. No acute intra-abdominal or pelvic findings 2. No evidence of bowel obstruction. No evidence of free air 3. Normal appendix. No evidence of acute diverticulitis 4. Cardiomegaly, bilateral pleural effusions, and lower lobe airspace opacities likely representing c ongestive failure and pulmonary edema Electronically signed by: Garrett Muniz M.D. 01/20/2018 9:58 AM
[2018-01-20 10:02] LABS: Appearance Urine Clear (Clear); Bacteria Urine Automated Negative (Negative); Bilirubin Urine Negative (Negative); Color Urine Yellow; Glucose Urine UA Negative (Negative); Ketones Urine Negative (Negative); Leukocyte Esterase Urine Negative (Negative); Nitrite Urine Negative (Negative); Protein Urine Trace (Negative); Specific Gravity Urine 1.009 (1.000-1.030); Urobilinogen Urine Negative (Negative); WBC Urine Automated 0 /hpf (0-5)
[2018-01-20] MEDS ORDERED: MAGNESIUM HYDROXIDE SUSP 30 ML UDC PO PRN (13:17)
[2018-01-20] MEDS ORDERED: DEXTROSE 50% 50 ML SYRINGE IV PRN (13:17)
[2018-01-20] MEDS ORDERED: ALBUTEROL HFA 8 GM INHALER INH PRN (13:17)
[2018-01-20] MEDS ORDERED: ONDANSETRON INJ 2 MG/ML 2 ML VIAL IV PRN (13:17)
[2018-01-20] MEDS ORDERED: CARBOHYDRATES FOR HYPOGLYCEMIA PO PRN (13:17)
[2018-01-20] MEDS ORDERED: GLUCOSE 10 TABS/TUBE PO PRN (13:17)
[2018-01-20] MEDS ORDERED: GLUCOSE 40% GEL 15 GM TUBE PO PRN (13:17)
[2018-01-20] MEDS ORDERED: GLUCAGON FOR INJ 1 MG VIAL SQ PRN (13:17)
[2018-01-20] MEDS ORDERED: ACETAMINOPHEN 325 MG TAB PO PRN (13:17)
[2018-01-20] MEDS: INSULIN ASPART 100 UNITS/ML 3 ML PEN SC SCH ×5 (13:50→20:45)
--- NOTE | 2018-01-20 13:56 | Emergency Department Note ---
Entered by Shirley Wallis acting as a scribe for Yaritza Rosa MD History of Present Illness General Chief complaint: Vomiting Stated complaint: vomiting Source: patient History of Present Illness Onset (ago): hour(s) (this morning) Location: chest (lungs) Pain Consistency: + other (persistent) Maximum Pain Intensity: 10 Quality: + other (spit up blood) Associated symptoms: + shortness of breath and + other (positive abdominal pain) ; no fever/chills The patient is a 42 year old male who presents to the Emergency Room with complaints of persistent spit up blood that is coming from his lungs that began this morning. The patient states that he has some shortness of breath and abdominal pain. The patient denies fevers. The patient states that he has seen pulmonary medicine, and states that they believe the patient may have cancer in his lungs. The patient states that he has CHF. He also states that he had a CT scan done last month that was negative for a PE. The patient states that he took his medications. The patient states that he does not wear oxygen at home. Home Medications Home Medications Medication Instructions Recorded Confirmed Type aspirin [Aspirin Low Dose] 81 mg PO QAM 11/28/17 01/20/18 History cholecalciferol (vitamin D3) 2,000 unit PO BID 11/28/17 01/20/18 History dulaglutide [Trulicity] 1.5 mg SUBCUT WK 11/28/17 01/20/18 History esomeprazole magnesium [Nexium] 40 mg PO QAM 11/28/17 01/20/18 History insulin lispro protamin-lispro 120 unit SUBCUT QPM 11/28/17 01/20/18 History [Humalog Mix 50-50 KwikPen] insulin lispro protamin-lispro 135 unit SUBCUT QAM 11/28/17 01/20/18 History [Humalog Mix 50-50 KwikPen] metformin 1,000 mg PO BIDM 11/28/17 01/20/18 History potassium chloride [Klor-Con M20] 20 meq PO QAM 11/28/17 01/20/18 History sacubitril-valsartan [Entresto] 1 tab PO BID 11/28/17 01/20/18 History albuterol sulfate [Ventolin HFA] 2 puff INHALATION Q4 PRN 12/30/17 01/20/18 History furosemide 80 mg PO BID 01/20/18 01/20/18 History metolazone 2.5 mg PO Q2D 01/20/18 01/20/18 History Allergies Allergy/AdvReac Type Severity Reaction Status Date / Time ceftriaxone Allergy Severe SHORTNESS Verified 01/20/18 09:48 OF BREATH lidocaine Allergy Severe SHORTNESS Verified 01/20/18 09:48 OF BREATH, diaphoretic, hives procaine Allergy Severe SHORTNESS Verified 01/20/18 09:48 OF BREATH, diaphoretic, hives amoxicillin Allergy Intermediate HIVES/FACIAL Verified 01/20/18 09:48 SWELLING lisinopril Allergy Intermediate HIVES Verified 01/20/18 09:48 albuterol Allergy Mild proair Verified 01/20/18 09:48 "trouble taking breaths" clavulanic acid Allergy Unknown . Verified 01/20/18 09:48 acetaminophen AdvReac Mild NAUSEA Verified 01/20/18 09:48 Past Med/Surg History Medical History Cognitive impairment DM II (diabetes mellitus, type II), controlled Depression Fatty liver GERD (gastroesophageal reflux disease) HTN (hypertension) Medical non-compliance Morbid obesity with BMI of 50.0-59.9, adult Nonischemic cardiomyopathy EF 30-35% MARIELENA (obstructive sleep apnea) Does not comply with CPAP Surgical History History of cholecystectomy Family History Other No pertinent family history Social History Feels Safe at Home: Yes Smoking Status: Former smoker Preferred Language: Slovak Review of Systems See HPI for pertinent positives & negatives. and A total of 10 systems reviewed and were otherwise negative Physical Exam Vital Signs Vital Signs - 24 hr 01/20/18 08:28 01/20/18 08:49 01/20/18 09:18 Temperature 36.5 C Temperature Source Oral Sepsis Recent Fever Within 48 Hours No Sepsis New/Unexplained Change in Mental Status No Sepsis Action Taken by Nursing No Action Required Pulse Rate 113 H Pulse Rate [Apical] 87 Respiratory Rate 26 H 22 Respiratory Effort / Characteristics Non-Labored Respiratory Depth Normal Respiratory Pattern Regular Blood Pressure 195/149 H Blood Pressure [Right Arm] 144/97 H Blood Pressure Mean 164 Blood Pressure Mean [Right Arm] 112 Blood Pressure Position Sitting Blood Pressure Position [Right Arm] Pulse Oximetry 87 L 93 93 Oxygen Delivery Method Room Air Room Air Nasal Cannula Oxygen Flow Rate 3 01/20/18 11:31 01/20/18 12:32 Temperature Temperature Source Sepsis Recent Fever Within 48 Hours Sepsis New/Unexplained Change in Mental Status Sepsis Action Taken by Nursing Pulse Rate Pulse Rate [Apical] 92 H Respiratory Rate 24 Respiratory Effort / Characteristics Respiratory Depth Respiratory Pattern Blood Pressure Blood Pressure [Right Arm] 169/128 H Blood Pressure Mean Blood Pressure Mean [Right Arm] 141 Blood Pressure Position Blood Pressure Position [Right Arm] Sitting Pulse Oximetry 87 L Oxygen Delivery Method Nasal Cannula Nasal Cannula Oxygen Flow Rate 3 Vital signs reviewed. General: Well-appearing, morbidly obese, in no significant distress. HEENT: No scleral icterus, PERRLA, neck supple. Atraumatic. Cardiovascular: Tachycardic and hypertensive. No extra sounds. Pulmonary: Crackles at the bases bilaterally with distant lung sounds. Normal work of breathing. Abdomen: Soft, diffuse abdominal tenderness, no rebound, no guarding. nondistended, positive bowel sounds. Musculoskeletal: Atraumatic, no peripheral edema. Neurologic: Patient awake alert and oriented x 3 Skin: Warm, dry, no rash Course 0830: Past medical records reviewed. The patient was evaluated in room B2, and a complete history and physical examination were performed. 1106: I reviewed the case with Dr. Marie Gonzalez Hospitalist who will further evaluate the patient. Consultations Consultation #1: I reviewed the case with Dr. Marie Gonzalez Hospitalist who will further evaluate the patient. Time: 11:06 Administered Medications Insulin Aspart (Novolog Flexpen) 0 units SC ACHS [facility] Stop: 02/19/18 13:59 Last Admin: 01/20/18 13:50 Dose: Not Given Ioversol (Optiray 320 100ml) 94 ml IV ONCE PRN PRN Reason: Interaction Checking Stop: 01/24/18 09:44 Last Admin: 01/20/18 09:46 Dose: 94 ml Discontinued Medications Furosemide (Lasix) 40 mg IV NOW STA Stop: 01/20/18 08:39 Last Admin: 01/20/18 08:42 Dose: 40 mg Labetalol HCl (Normodyne) 10 mg IV NOW STA Stop: 01/20/18 08:32 Last Admin: 01/20/18 08:42 Dose: 10 mg Ondansetron HCl (Zofran) 4 mg IV NOW STA Stop: 01/20/18 08:32 Last Admin: 01/20/18 08:42 Dose: 4 mg Medical Decision Making Differential Diagnosis Differential diagnosis: Etiologies such as infections, reactive airway disease, COPD, pneumonia, pleural effusion, pulmonary edema, ARDS, pneumothorax, CHF, cardiac ischemia, cardiac tamponade, dysrhythmia, anemia, pulmonary embolism, musculoskeletal, gastrointestinal process, as well as others were entertained. Medical Records Attestation: I reviewed the patient's medical records. Home Medications Current Medication List: was personally reviewed by me Laboratory Data Attestation: I reviewed the patient's lab results. Result diagrams: 01/20/18 09:00 01/20/18 09:00 Lab Results 01/20/18 01/20/18 01/20/18 Range/Units 09:00 09:00 09:30 WBC 9.33 (4.8-10.8) K/uL RBC 5.20 (4.7-6.1) M/uL Hgb 15.1 (14.0-18.0) g/dL Hct 44.4 (42-52) % MCV 85.4 (80-100) fL MCH 29.0 (25-34) pg MCHC 34.0 (32-36) g/dL RDW Std Deviation 44.1 (36.4-46.3) fL RDW Coeff of Zoltan 14.1 (11.5-14.5) % Plt Count 150 (130-400) K/uL MPV 9.7 (7.4-10.4) fL Immature Gran % (Auto) 0.2 % Neut % (Auto) 76.4 % Lymph % (Auto) 18.4 % [place] % (Auto) 4.7 % Eos % (Auto) 0.2 % Baso % (Auto) 0.1 % Immature Gran # (Auto) 0.02 (0.00-0.02) K/uL Neut # (Auto) 7.12 H (1.4-6.5) K/uL Lymph # (Auto) 1.72 (1.2-3.4) K/uL [place] # (Auto) 0.44 (0.11-0.59) K/uL Eos # (Auto) 0.02 (0-0.5) K/uL Baso # (Auto) 0.01 (0-0.2) K/uL Sodium 141 (136-145) mmol/L Potassium 3.6 (3.5-5.1) mmol/L Chloride 108 H (98-107) mmol/L Carbon Dioxide 24 (21-32) mmol/L Anion Gap 9.0 (3-11) BUN 14 (7-18) mg/dl Creatinine 0.94 (0.6-1.4) mg/dl Est Cr Clr Drug Dosing 158.2 ml/min Est GFR ( Amer) 116.3 Est GFR (Non-Af Amer) 100.3 BUN/Creatinine Ratio 14.5 (10-20) Glucose 183 H (70-99) mg/dl POC Glucose (70-99) Calcium 8.3 L (8.5-10.1) mg/dl Total Bilirubin 0.7 (0.1-1) mg/dl AST 16 (15-37) U/L ALT 46 (12-78) U/L Alkaline Phosphatase 80 (45-117) U/L Total Protein 6.5 (6.4-8.2) gm/dl Albumin 3.2 L (3.4-5.0) gm/dl Globulin 3.3 (2.5-4.0) gm/dl Albumin/Globulin Ratio 1.0 (0.9-2) Lipase 121 (73-393) U/L Urine Color Yellow Urine Appearance Clear (Clear) Urine pH 6.0 (4.5-7.5) Ur Specific [place] 1.009 (1.000-1.030) Urine Protein Trace H (Negative) Urine Glucose (UA) Negative (Negative) Urine Ketones Negative (Negative) Urine Blood Negative (Negative) Urine Nitrite Negative (Negative) Urine Bilirubin Negative (Negative) Urine Urobilinogen Negative (Negative) Ur Leukocyte Esterase Negative (Negative) Urine WBC (Auto) 0 (0-5) /hpf Urine RBC (Auto) 0-4 (0-4) /hpf U Hyaline Cast (Auto) 1-5 (0-5) /lpf U Epithel Cells (Auto) 5-10 H (0-5) /lpf Urine Bacteria (Auto) Negative (Negative) 01/20/18 Range/Units 13:30 WBC (4.8-10.8) K/uL RBC (4.7-6.1) M/uL Hgb (14.0-18.0) g/dL Hct (42-52) % MCV (80-100) fL MCH (25-34) pg MCHC (32-36) g/dL RDW Std Deviation (36.4-46.3) fL RDW Coeff of Zoltan (11.5-14.5) % Plt Count (130-400) K/uL MPV (7.4-10.4) fL Immature Gran % (Auto) % Neut % (Auto) % Lymph % (Auto) % [place] % (Auto) % Eos % (Auto) % Baso % (Auto) % Immature Gran # (Auto) (0.00-0.02) K/uL Neut # (Auto) (1.4-6.5) K/uL Lymph # (Auto) (1.2-3.4) K/uL [place] # (Auto) (0.11-0.59) K/uL Eos # (Auto) (0-0.5) K/uL Baso # (Auto) (0-0.2) K/uL Sodium (136-145) mmol/L Potassium (3.5-5.1) mmol/L Chloride (98-107) mmol/L Carbon Dioxide (21-32) mmol/L Anion Gap (3-11) BUN (7-18) mg/dl Creatinine (0.6-1.4) mg/dl Est Cr Clr Drug Dosing ml/min Est GFR ( Amer) Est GFR (Non-Af Amer) BUN/Creatinine Ratio (10-20) Glucose (70-99) mg/dl POC Glucose 140 H (70-99) Calcium (8.5-10.1) mg/dl Total Bilirubin (0.1-1) mg/dl AST (15-37) U/L ALT (12-78) U/L Alkaline Phosphatase (45-117) U/L Total Protein (6.4-8.2) gm/dl Albumin (3.4-5.0) gm/dl Globulin (2.5-4.0) gm/dl Albumin/Globulin Ratio (0.9-2) Lipase (73-393) U/L Urine Color Urine Appearance (Clear) Urine pH (4.5-7.5) Ur Specific [place] (1.000-1.030) Urine Protein (Negative) Urine Glucose (UA) (Negative) Urine Ketones (Negative) Urine Blood (Negative) Urine Nitrite (Negative) Urine Bilirubin (Negative) Urine Urobilinogen (Negative) Ur Leukocyte Esterase (Negative) Urine WBC (Auto) (0-5) /hpf Urine RBC (Auto) (0-4) /hpf U Hyaline Cast (Auto) (0-5) /lpf U Epithel Cells (Auto) (0-5) /lpf Urine Bacteria (Auto) (Negative) Imaging Data Radiologist's Impression: Radiology results as stated below per my review and the radiologist's interpretation: CT abd pelvis IV con only CLINICAL HISTORY: Epigastric and left lower quadrant abdominal pain COMPARISON STUDY: July 2015 TECHNIQUE: The patient was scanned in a dynamic helical fashion during intravenous administration of 94 cc of Optiray 320. A dose lowering technique was utilized adhering to the principles of ALARA. CT DOSE: 1639.44 mGy.cm FINDINGS: Lower chest: There are bilateral pleural effusions. There are bilateral lower lobe pulmonary airspace opacities, likely representing pulmonary edema. Liver: The liver is borderline enlarged. No focal hepatic masses are visualized. Gallbladder: Surgically absent Spleen: Mildly enlarged measuring 12.7 cm. No splenic masses are visualized. Pancreas: Unremarkable. Adrenal glands: Unremarkable. Kidneys: There is symmetric renal cortical enhancement. The kidneys are normal in size without hydronephrosis. Bowel: There are no transition zones indicate bowel obstruction. The appendix appears normal. There is no acute diverticulitis. Peritoneum: There is no intraperitoneal free air or abdominal ascites. Vasculature: The abdominal aorta is normal in course and caliber. Adenopathy: None. Pelvic viscera: The bladder, and pelvic viscera are unremarkable. Skeletal structures: There is bilateral L5 spondylolysis. There is a grade 1 spondylolisthesis of L5 on S1. There is L2-3 disc osteophyte complex. IMPRESSION: 1. No acute intra-abdominal or pelvic findings 2. No evidence of bowel obstruction. No evidence of free air 3. Normal appendix. No evidence of acute diverticulitis 4. Cardiomegaly, bilateral pleural effusions, and lower lobe airspace opacities likely representing congestive failure and pulmonary edema Electronically signed by: Garrett Muniz M.D. 01/20/2018 9:58 AM XR chest 1V portable CLINICAL HISTORY: tachycardia COMPARISON STUDY: 12/18/2017 FINDINGS: The heart is enlarged. There is radiographic evidence of congestive failure. Right basilar airspace opacities likely represent focal pulmonary edema. There are suspected small pleural effusions. IMPRESSION: Cardiomegaly and radiographic evidence of congestive failure and pulmonary edema Electronically signed by: Garrett Muniz M.D. 01/20/2018 8:55 AM Blood Pressure Blood Pressure Findings: Elevated blood pressure Blood Pressure Disposition: elevated BP felt to be situational MDM Narrative This patient was evaluated and appeared to be in no significant distress. Physical examination reveals a morbidly obese male, nasal cannula placed in no respiratory distress. He does complain of a vague abdominal discomfort and is diffusely tender. Patient's physical exam is limited by his body habitus. Chest x-ray was performed and confirms congestive heart failure. Patient had been given 40 mg of IV Lasix and remained stable on nasal cannula O2. He will did receive 10 mg of IV labetalol with improvement in both blood pressure and heart rate. CT scan of the abdomen pelvis was performed without evidence of acute intra-abdominal abnormality. Case was discussed with Dr. Spivey of the hospitalist service who will evaluate the patient for further management. Impression & Plan CHF (congestive heart failure) Discharge Plan Visit Data *Final* Discharge Date/Time: 01/20/18 12:32 Chief Complaint: Vomiting Stated Complaint: vomiting ED Provider: Yaritza Rosa Discharge Problem: CHF (congestive heart failure) Patient Disposition: Admitted As Inpatient Discharge Instructions Interventions: ED Discharge Assessment Last Done: 01/20/18 12:32 The scribe's documentation has been prepared under my direction and personally reviewed by me in its entirety. I confirm that the note above accurately reflects all work, treatment, procedures, and medical decision making performed by me.
[2018-01-20] MEDS: SACUBITRIL-VALSARTAN 49/51 MG TAB PO SCH ×2 (14:13→20:46)
[2018-01-20] MEDS: FUROSEMIDE 80 MG TAB PO SCH (15:28)
--- NOTE | 2018-01-20 16:45 | History & Physical Report ---
Date of Service January 20, 2018 Assessment & Plan (1) CHF (congestive heart failure): Currently in exacerbation with hypoxia CHF noted on CXR and CTAP Concern for missed meds, however pt denies this Given lasix 40mg IV in ED, monitor output Home dosing is 80mg PO BID, will give usual dose tonight and monitor Will hold on repeat ECHO, but reconsider if not improving on home lasix dosing (2) Vomiting: Holding aspirin, does appear that there is blood in some sort of fluid that pt says he "gagged up" Appearance is more c/w sputum that emesis Hemoccult pending Hb WNL Follows with pulm Recent CTA neg (3) Uncontrolled hypertension: Improved quickly in the ED with single dose of labetolol Again, concern for missed meds Will give morning med and monitor Continue home dosing with PRN metoprolol (4) DM type 2 (diabetes mellitus, type 2): Pt is noted to be on large doses of insulin as outpt Called by pharmacy stating that pt was requiring minimal SSI during recent admission without high baseline insulin administration Will hold home dosing for now and monitor with SSI to avoid hypoglycemia Possibly related to overeating and poor diet as outpt, but more controlled PO intake while hospitalized A1c pending Metformin on hold x48hrs for IV contrast (5) Obstructive sleep apnea: As at home (6) Learning difficulties: Lives in a retirement Is generally independent there CM alerted for d/c planning (7) Morbid obesity with body mass index of 50.0-59.9 in adult: Given cognitive impairment, this will be difficult to manage with education (8) DVT prophylaxis: Holding for now given c/o hemoptysis on admission Monitor History of Present Illness Chief Complaint: 42 y/o M c/o SOB and "gagging up blood". Pt states that he has been having increasing SOB with ambulation over the last 2 weeks. He is having difficulty getting from the bus stop to his home as he has to walk up hill. He has been bringing up blood that he is "gagging on", although he cannot really specify if this is from his lungs or his stomach. He states that he filled a urine collection container over the last 1.5 weeks. He has no chest pain. He states he has a pain around the lateral sides of his abd. He is bruising where he gives himself a trulicity injection. He states he never misses his medications, including this AM's meds. He is eating without issue. Pt denies fever, n/v/c/d, LE pain or swelling. Denies blood in his stool. He states that he saw blood in his urine x2 about 2 weeks ago, but this resolved on its own. Pt states he was hospitalized in [place] and told he has a leaky valve. He was put on aspirin for prevention. He denies hx of AR or CVA. Pt was given lasix 40mg IV and labetolol 10mg in the ED. Breathing improved. HR and BP rapidly improved which lead ED physician to suspect that pt had missed AM meds. Primary Care Provider: Markie Briceno MD Allergies Allergy/AdvReac Type Severity Reaction Status Date / Time ceftriaxone Allergy Severe SHORTNESS Verified 01/20/18 09:48 OF BREATH lidocaine Allergy Severe SHORTNESS Verified 01/20/18 09:48 OF BREATH, diaphoretic, hives procaine Allergy Severe SHORTNESS Verified 01/20/18 09:48 OF BREATH, diaphoretic, hives amoxicillin Allergy Intermediate HIVES/FACIAL Verified 01/20/18 09:48 SWELLING lisinopril Allergy Intermediate HIVES Verified 01/20/18 09:48 albuterol Allergy Mild proair Verified 01/20/18 09:48 "trouble taking breaths" clavulanic acid Allergy Unknown . Verified 01/20/18 09:48 acetaminophen AdvReac Mild NAUSEA Verified 01/20/18 09:48 Home Medications Home Medications Medication Instructions Recorded Confirmed Type aspirin [Aspirin Low Dose] 81 mg PO QAM 11/28/17 01/20/18 History cholecalciferol (vitamin D3) 2,000 unit PO BID 11/28/17 01/20/18 History dulaglutide [Trulicity] 1.5 mg SUBCUT WK 11/28/17 01/20/18 History esomeprazole magnesium [Nexium] 40 mg PO QAM 11/28/17 01/20/18 History insulin lispro protamin-lispro 120 unit SUBCUT QPM 11/28/17 01/20/18 History [Humalog Mix 50-50 KwikPen] insulin lispro protamin-lispro 135 unit SUBCUT QAM 11/28/17 01/20/18 History [Humalog Mix 50-50 KwikPen] metformin 1,000 mg PO BIDM 11/28/17 01/20/18 History potassium chloride [Klor-Con M20] 20 meq PO QAM 11/28/17 01/20/18 History sacubitril-valsartan [Entresto] 1 tab PO BID 11/28/17 01/20/18 History albuterol sulfate [Ventolin HFA] 2 puff INHALATION Q4 PRN 12/30/17 01/20/18 History furosemide 80 mg PO BID 01/20/18 01/20/18 History metolazone 2.5 mg PO Q2D 01/20/18 01/20/18 History Past Med/Surg History Medical History Cognitive impairment DM II (diabetes mellitus, type II), controlled Depression Fatty liver GERD (gastroesophageal reflux disease) HTN (hypertension) Medical non-compliance Morbid obesity with BMI of 50.0-59.9, adult Nonischemic cardiomyopathy EF 30-35% MARIELENA (obstructive sleep apnea) Does not comply with CPAP Surgical History History of cholecystectomy Family History Other No pertinent family history Social History Current Living Situation: Spouse Other Information That Helps Us Care for You: No Feels Safe at Home: Yes Safety Concerns: Feels Safe At This Time Smoking Status: Never smoker Cigarettes per Day: states he tried it a few times around 14 y/o Second Hand Exposure: No Hx Alcohol Use: No Hx Substance Use: No Beliefs That Will Affect Care: None Preferred Language: Croatian Communication Ability: Effective 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 Review of Systems Pertinent positives and negatives reviewed in HPI--all others negative Physical Exam 2 Vital Signs (Past 24 Hours): Last Vital Signs Temp 36.5 C 01/20/18 08:28 Pulse 92 H 01/20/18 11:31 Resp 24 01/20/18 11:31 BP 169/128 H 01/20/18 11:31 Pulse Ox 87 L 01/20/18 11:31 Constitutional: + morbidly obese and cooperative Eyes: normal visual obrien by confrontation and + anicteric sclerae Neck: normal visual inspection and trachea midline Respiratory: normal respiratory effort, lungs clear to auscultation Cardiovascular: Rate/Rhythm: regular rate and regular rhythm Gastrointestinal (Abdomen): Inspection/Auscultation: abdomen not distended Percussion/Palpation: abdomen soft; abdomen nontender Musculoskeletal: Head/Neck/Chest: normocephalic and head atraumatic 2+ pitting edema, peripheral pulses intact Skin: no rashes, warm and dry Bruising noted on abd Neurologic: awake; not confused Speech / Cognition: normal speech Psychiatric: A+Ox3, euthymic affect Eye Contact: good eye contact Thought Process: clear/coherent thought process _ (1) CHF (congestive heart failure) Heart failure chronicity: acute on chronic Heart failure type: unspecified Qualified Code(s): I50.9 - Heart failure, unspecified
[2018-01-20] MEDS ORDERED: METFORMIN HCL 500 MG TAB PO SCH (17:00)
[2018-01-20] MEDS ORDERED: METOPROLOL TARTRATE 1 MG/ML VIAL IV PRN (17:55)
[2018-01-20] MEDS ORDERED: METOPROLOL TARTRATE 1 MG/ML VIAL IV ONE (18:18)
[2018-01-20] MEDS: CHOLECALCIFEROL 1,000 UNITS TAB PO SCH (20:46)
[2018-01-20] MEDS ORDERED: [UNRECOGNIZED DRUG - OTHER] SQ SCH (21:00)
[2018-01-21 06:46] LABS: Basophils # (auto) 0.02 K/uL (0-0.2); Basophils % (auto) 0.2 %; Eosinophils # (auto) 0.09 K/uL (0-0.5); Eosinophils % (auto) 0.9 %; Hematocrit (blood only) 45.5 % (42-52); Hemoglobin 15.7 g/dL (14.0-18.0); Immature Granulocytes # (auto) 0.04 K/uL (0.00-0.02); Immature Granulocytes % (auto) 0.4 %; Lymphocytes # (auto) 2.38 K/uL (1.2-3.4); Lymphocytes % (auto) 24.2 %; Mean Corpuscular Hgb Conc 34.5 g/dL (32-36); Mean Platelet Volume 10.1 fL (7.4-10.4); Monocytes # (auto) 0.89 K/uL (0.11-0.59); Monocytes % (auto) 9.1 %; Neutrophils % (auto) 65.2 %; Platelet Count 169 K/uL (130-400); RDW Coefficient of Variation 14.2 % (11.5-14.5); RDW Standard Deviation 44.2 fL (36.4-46.3); Red Blood Count 5.29 M/uL (4.7-6.1); White Blood Count 9.82 K/uL (4.8-10.8)
[2018-01-21 07:10] LABS: Estimated Average Glucose 160 mg/dl
[2018-01-21 07:20] LABS: BUN Creatinine Ratio 14.8 (10-20); Calcium 8.7 mg/dl (8.5-10.1); Creatinine Clr Calc Pharmacy 171.3 ml/min; Est GFR (African American) 126.7; Est GFR (Non-African American) 109.3; Potassium 3.5 mmol/L (3.5-5.1)
[2018-01-21] MEDS: FUROSEMIDE 80 MG TAB PO SCH ×2 (07:58→16:10)
[2018-01-21] MEDS: CHOLECALCIFEROL 1,000 UNITS TAB PO SCH ×2 (07:58→21:20)
[2018-01-21] MEDS: SACUBITRIL-VALSARTAN 49/51 MG TAB PO SCH ×2 (07:58→21:21)
[2018-01-21] MEDS: PANTOprazole 40 MG TAB PO SCH (07:58)
[2018-01-21] MEDS: POTASSIUM CHLORIDE 20 MEQ TABCR PO SCH (07:58)
[2018-01-21] MEDS: metOLazone 2.5 MG TABLET PO SCH (07:59)
[2018-01-21] MEDS: INSULIN ASPART 100 UNITS/ML 3 ML PEN SC SCH ×4 (08:28→21:23)
[2018-01-21] MEDS ORDERED: [UNRECOGNIZED DRUG - OTHER] SQ SCH (09:00)
[2018-01-21] MEDS ORDERED: ASPIRIN 81 MG ECTAB PO SCH (09:00)
--- NOTE | 2018-01-21 13:23 | Hospitalist Progress Note ---
Date of Service January 21, 2018 Assessment & Plan (1) CHF (congestive heart failure): Acute on chronic systolic and diastolic congestive heart failure Hypoxic on admission CHF noted on CXR and CTAP Concern for missed meds, however pt denies this Given lasix 40mg IV in ED, monitor output Home dosing is 80mg PO BID, will give usual dose tonight and monitor Echo 07/30 showed EF 30% with diastolic failure, mild to moderate global hypokinesis of the left ventricle (2) Vomiting: Holding aspirin, continues producing bloody emesis/sputum - unclear source. Will order barium swallow. Hemoccult negative Hb WNL Follows with pulm Recent CTA neg (3) Uncontrolled hypertension: Improved quickly in the ED with single dose of labetolol Again, concern for missed meds stable (4) DM type 2 (diabetes mellitus, type 2): Pt is noted to be on large doses of insulin as outpt Called by pharmacy stating that pt was requiring minimal SSI during recent admission without high baseline insulin administration Will hold home dosing for now and monitor with SSI to avoid hypoglycemia Possibly related to overeating and poor diet as outpt, but more controlled PO intake while hospitalized A1c 7.2 hold meformin (5) Obstructive sleep apnea: As at home (6) Learning difficulties: Lives in a shelter Is generally independent there CM alerted for d/c planning (7) Morbid obesity with body mass index of 50.0-59.9 in adult: Given cognitive impairment, this will be difficult to manage with education (8) DVT prophylaxis: Holding for now due to hemoptysis Subjective Mr. Huff reports that he continues to "gag" up blood. He is not coughing, though he has been sob. He also reports some difficulty with swallowing water in that it comes right back up and he has to spit it out however this doesn't happen with other fluids. He has also been lightheaded with headaches recently. Review of Systems All systems reviewed & are unremarkable except as noted in HPI & below Physical Exam 2 Vital Signs (Past 24 Hours): Last Vital Signs Temp 36.8 C 01/21/18 11:26 Pulse 93 H 01/21/18 11:26 Resp 20 01/21/18 11:26 BP 134/87 01/21/18 11:26 Pulse Ox 91 01/21/18 11:26 Physical Exam: General: no distress Eyes: normal inspection, PERLL Respiratory: chest non tender, clear to auscultation, normal breath sounds, no respiratory distress, no accessory muscle use Cardiac: regular rate and rhythm, no rub or gallop, no murmur, no edema, no jvd GI/: active bowel sounds, abdomen tender throughout, soft, non distended Extremities: normal range of motion, normal strength, non tender Neuro/Psych: alert and oriented x 3, normal mood and affect Skin: normal color, dry Results & Data Laboratory Results Abnormal lab results 01/20/18 01/20/18 01/20/18 Range/Units 13:30 16:25 20:22 Immature Gran # (Auto) (0.00-0.02) K/uL Hernando # (Auto) (0.11-0.59) K/uL Glucose (70-99) mg/dl POC Glucose 140 H 122 H 106 H (70-99) Hemoglobin A1c (4.5-5.6) % 01/21/18 01/21/18 01/21/18 Range/Units 06:21 06:21 06:21 Immature Gran # (Auto) 0.04 H (0.00-0.02) K/uL Hernando # (Auto) 0.89 H (0.11-0.59) K/uL Glucose 149 H (70-99) mg/dl POC Glucose (70-99) Hemoglobin A1c 7.2 H (4.5-5.6) % 01/21/18 01/21/18 Range/Units 07:36 11:37 Immature Gran # (Auto) (0.00-0.02) K/uL Hernando # (Auto) (0.11-0.59) K/uL Glucose (70-99) mg/dl POC Glucose 136 H 133 H (70-99) Hemoglobin A1c (4.5-5.6) % _ (1) CHF (congestive heart failure) Heart failure chronicity: acute on chronic Heart failure type: unspecified Qualified Code(s): I50.9 - Heart failure, unspecified
--- NOTE | 2018-01-21 14:15 | Fluoroscopy Report ---
FL barium swallow CLINICAL HISTORY: Dysphagia. COMPARISON STUDY: Barium swallow May 22, 2014. FLUOROSCOPY TIME: 1.2 minutes. FLUOROSCOPIC IMAGES: 23 FINDINGS: Esophageal motility was normal. No esophageal mass or stricture was identified. Mucosal det ail is diminished on this exam. No hiatal hernia was identified. No reflux was elicited. IMPRESSION: No esophageal mass or stricture identified. Electronically signed by: Eyad Rosario M.D. 01/21/2018 2:14 PM
[2018-01-22] MEDS: POTASSIUM CHLORIDE 20 MEQ TABCR PO SCH (07:48)
[2018-01-22] MEDS: PANTOprazole 40 MG TAB PO SCH (07:48)
[2018-01-22] MEDS: FUROSEMIDE 80 MG TAB PO SCH ×2 (07:48→17:30)
[2018-01-22] MEDS: SACUBITRIL-VALSARTAN 49/51 MG TAB PO SCH ×2 (07:48→21:01)
[2018-01-22] MEDS: CHOLECALCIFEROL 1,000 UNITS TAB PO SCH ×2 (07:49→21:00)
[2018-01-22] MEDS: INSULIN ASPART 100 UNITS/ML 3 ML PEN SC SCH ×4 (07:49→20:59)
[2018-01-22] MEDS ORDERED: IBUPROFEN 600 MG TAB PO STA (09:19)
[2018-01-22] MEDS: ACETAMINOPHEN SOLN 500 MG/15.62 ML UDP PO SCH ×2 (09:33→09:40)
[2018-01-22] MEDS ORDERED: HYDROmorphone INJ 0.5 MG/0.5 ML SYR IV STA (13:50)
[2018-01-22] MEDS ORDERED: SODIUM CHLORIDE 0.65% NA SOLN 45 ML (OCEAN) PRN (13:54)
--- NOTE | 2018-01-22 14:47 | Hospitalist Progress Note ---
Date of Service January 22, 2018 Assessment & Plan (1) CHF (congestive heart failure): Acute on chronic systolic and diastolic congestive heart failure Hypoxic on admission - now on room air CHF noted on CXR and CTAP on admission Concern for missed meds, however pt denies this Given lasix 40mg IV in ED and then home dosing is 80mg PO BID Echo 07/30 showed EF 30% with diastolic failure, mild to moderate global hypokinesis of the left ventricle, repeat echo unchanged (2) Vomiting: Holding aspirin, continues producing bloody emesis/sputum - unclear source Barium swallow without abnormalities Hemoccult negative Hb WNL Has been seeing pulm outpatient -will consult here Recent CTA neg - pulm placed order for repeat CT non contrast (3) Uncontrolled hypertension: Improved quickly in the ED with single dose of labetolol Again, concern for missed meds stable (4) DM type 2 (diabetes mellitus, type 2): Pt is noted to be on large doses of insulin as outpt Blood sugars have been fairly well controlled inpatient A1c 7.2 hold meformin (5) Obstructive sleep apnea: As at home (6) Learning difficulties: CM alerted for d/c planning (7) Morbid obesity with body mass index of 50.0-59.9 in adult: Consult senior nurse manager (8) DVT prophylaxis: Holding for now due to hemoptysis (9) Sinus pain: CT head, sed rate, saline nasal spray Subjective Mr. Giles has not had any blood today though he is still gagging up mucous. He reports pain in his upper back and neck as well as around his left eye. He denies sob. He is on room air Review of Systems All systems reviewed & are unremarkable except as noted in HPI & below Physical Exam 2 Vital Signs (Past 24 Hours): Last Vital Signs Temp 36.3 C L 01/22/18 07:49 Pulse 84 01/22/18 08:00 Resp 20 01/22/18 07:49 BP 122/88 01/22/18 07:49 Pulse Ox 93 01/22/18 07:49 Physical Exam: General: no distress HEENT: normal inspection, PERLL, tender maxillary and frontal sinuses to palpation. Respiratory: chest non tender, clear to auscultation, normal breath sounds, no respiratory distress, no accessory muscle use Cardiac: regular rate and rhythm, no rub or gallop, no murmur, no edema, no jvd GI/: active bowel sounds, no abd pain or tenderness, soft, non distended Extremities: normal range of motion, normal strength, tender cervical and thoracic spine and surrounding muscles Neuro:oriented x 3, moves all extremities Psych: alert, normal mood and affect Skin: normal color, dry Results & Data Laboratory Results Abnormal lab results 01/21/18 01/21/18 01/22/18 Range/Units 16:09 20:35 07:26 POC Glucose 145 H 124 H 144 H (70-99) 01/22/18 Range/Units 11:22 POC Glucose 171 H (70-99) _ (1) CHF (congestive heart failure) Heart failure chronicity: acute on chronic Heart failure type: unspecified Qualified Code(s): I50.9 - Heart failure, unspecified
--- NOTE | 2018-01-22 15:05 | Consultation Report ---
DATE OF CONSULTATION: 01/22/2018 PULMONARY CONSULTATION REASON FOR CONSULTATION: Hemoptysis. HISTORY OF PRESENT ILLNESS: This is a 42-year-old male patient with a history of cognitive impairment that is mild, diabetes mellitus type 2, congestive heart failure with systolic reduced ejection fraction, and hypertension. The patient was admitted on 01/20/2018, complaining of coughing up solid chunks that are bloody. The patient says when he descends from the bus to walk uphill to his home, he has this gurgling sensation and he coughed up bloody mucus that is chunky in nature. He says this started on 12/30/2017 and it is not associated with oppressive chest pain, shortness of breath, nausea, vomiting or fevers and chills. He gets occasionally sensations of pins and needles in his chest, sometimes with cough, sometimes without coughing. When the patient was admitted to the Emergency Room, he was found to have high blood pressure. He was given Lasix and IV labetalol and those got under control. At the bedside today, he does not report any shortness of breath, cough, wheezing, headache or chest pain, but he insists that he is coughing up a bit of blood and he stained the pillows. I inquired with the nurse and she says the patient has not had any episodes of coughing up blood seen by the nurses or reported by the nurses to her since his admission. He has a CAT scan obtained on 30 of December which ruled out pulmonary embolism and he has a recent chest x-ray during this admission which shows findings compatible with congestive heart failure with small bilateral effusions. REVIEW OF SYMPTOMS: Otherwise, a 10-point review of symptoms is negative. He has no other GI or complaints. PAST MEDICAL HISTORY: The patient has cognitive impairment, diabetes mellitus type 2, controlled on Trulicity, depression, fatty liver, GERD, hypertension and is medically noncompliant with his medication. He is morbidly obese with a BMI above 50 and has obstructive sleep apnea and is noncompliant with his CPAP. His cardiomyopathy with reduced ejection fraction 30-35% is his latest echo. PAST SURGICAL HISTORY: The patient has history of cholecystectomy. FAMILY HISTORY: Nonpertinent. SOCIAL HISTORY: He lives with his . He is a never smoker and he does not use or abuse illicit drugs or alcohol. He said he tried smoking at age of 14, few cigarettes and then he stopped. Physical Exam vitals reviewed, afebrile saturates well on room air and hemodynamically stable HENT short thik neck mallempati 4 no oral lesions Lungs b/l CTA no wheezes rhales rhonchi heart reg s1 s2 no murmurs abdomen morbid central obesity soft non tender no megalies ext no CCE LABORATORY DATA: Since admission on 20 of January, the patient had had a stable hemoglobin 15.1-15.7. His white count is 9.3-9.8. His platelet counts have been 169-150 consistently. His coagulation profile shows a normal PT and a normal PTT. The INR is 1. Blood gas on admission shows a pH of 7.43, a CO2 of 38 and a PaO2 of 71 presumably on room air. His fingerstick has been controlled between 136 and 171 since admission, his sodium level is 139, potassium 3.9. His creatinine is 0.83 with a carbon dioxide level at 28. His BUN is 12 and his hemoglobin A1c is 7.2. Calcium is 8.7. Urinalysis is positive for trace urine, otherwise negative. CAT scan of the chest in December on 12/30/2017 does not show pulmonary embolus or lung lesions such as nodules or densities. Chest x-ray during this admission as mentioned above shows findings compatible with volume overload and bilateral small pleural effusions. ASSESSMENT AND PLAN: This is a 42-year-old male patient who is known to have the above-mentioned medical comorbidities, namely hypertension, diabetes mellitus type 2 with complications of idiopathic peripheral neuropathy. He is morbidly obese with obstructive sleep apnea and has heart failure with reduced ejection fraction, which was confirmed during this admission on an echo again. The patient was admitted with hemoptysis. He reports it as sputum with chunks of blood, but this has not been witnessed during the entire admission. The patient with heart failure may have frothy pulmonary edema that is blood tinged and when that dries up in the throat, you know it can be chunky. However, he has no evidence of bleeding. There is no drop in hemoglobin. There is no melena or hematemesis. At this point, I would only obtain a CAT scan of the chest. There is no indication for bronchoscopy and the patient who was otherwise stable had had no hemoptysis episodes in the hospital. We recommend control of his heart failure with diuretics, use of CPAP for his obstructive sleep apnea, since he has had no bleeding, recommend using subQ heparin for DVT prophylaxis. We will follow up with the patient after the CAT scan, and if there are no lesions in the lung, the patient may be safe to be discharged home and treated as an outpatient. If the patient has a recurrence of his hemoptysis, please contact pulmonary medicine again. Otherwise, defer further medical management that is non-respiratory to the primary care team. Addendum WE obtained CT chest and there were no lesions. Patient DC home to FU as outpatient with local pulm doctor if the problem recurs to get bronch MTDD
[2018-01-22] MEDS: IBUPROFEN 600 MG TAB PO PRN (15:17)
--- NOTE | 2018-01-22 15:55 | CT Scan Report ---
CT head/brain wo con CLINICAL HISTORY: headache, sinus pain COMPARISON STUDY: April 09, 2015 TECHNIQUE: Axial CT of the brain is performed from the vertex to the skull base. IV contrast was not administered for this examination. A dose lowering technique was utilized adhering to the principles of ALARA. CT DOSE: 2343.04 mGy.cm FINDINGS: No intra or extra-axial mass lesions are visualized. There is no CT evidence of acute cortical infarc tion. There is no evidence of midline shift. There is no acute hemorrhage. No calvarial fractures ar e visualized. There are patchy white matter hypodensities likely on a small vessel basis. There is no evidence of pathologic ventricular dilatation. There is no evidence of acute sinusitis IMPRESSION: No acute intracranial findings Electronically signed by: Garrett Muniz M.D. 01/22/2018 3:54 PM
--- NOTE | 2018-01-22 15:57 | CT Scan Report ---
CT chest wo con CT DOSE: HISTORY: Dyspnea hemoptysis TECHNIQUE: Multiaxial CT images of the chest were performed without contrast. A dose lowering techni que was utilized adhering to the principles of ALARA. COMPARISON: None. FINDINGS: The lungs are clear. The mediastinal vascular structures are within normal limits. No media stinal or hilar lymphadenopathy. No pleural effusion or pneumothorax. Limited views of the upper abdo men demonstrate a normal liver and spleen. IMPRESSION: No acute process. The lungs are clear. The above report was generated using voice recognition software. It may contain grammatical, syntax or spelling errors. Electronically signed by: Cleveland Concepcion M.D. 01/22/2018 3:56 PM
[2018-01-23] MEDS: IBUPROFEN 600 MG TAB PO PRN (02:19)
[2018-01-23 06:00] LABS: Basophils # (auto) 0.02 K/uL (0-0.2); Basophils % (auto) 0.2 %; Eosinophils # (auto) 0.12 K/uL (0-0.5); Hematocrit (blood only) 50.5 % (42-52); Hemoglobin 17.6 g/dL (14.0-18.0); Immature Granulocytes # (auto) 0.05 K/uL (0.00-0.02); Immature Granulocytes % (auto) 0.4 %; Lymphocytes # (auto) 2.76 K/uL (1.2-3.4); Mean Corpuscular Hgb Conc 34.9 g/dL (32-36); Mean Platelet Volume 10.6 fL (7.4-10.4); Monocytes # (auto) 0.88 K/uL (0.11-0.59); Monocytes % (auto) 7.7 %; Neutrophils # (auto) 7.67 K/uL (1.4-6.5); Neutrophils % (auto) 66.7 %; Platelet Count 185 K/uL (130-400); RDW Coefficient of Variation 14.1 % (11.5-14.5); RDW Standard Deviation 43.7 fL (36.4-46.3); Red Blood Count 5.94 M/uL (4.7-6.1)
[2018-01-23 06:39] LABS: BUN Creatinine Ratio 23.2 (10-20); Creatinine Clr Calc Pharmacy 102.5 ml/min; Est GFR (African American) 73.7; Est GFR (Non-African American) 63.6; Potassium 3.1 mmol/L (3.5-5.1)
[2018-01-23] MEDS ORDERED: POTASSIUM CHLORIDE 20 MEQ TABCR PO STA (07:54)
[2018-01-23] MEDS: SACUBITRIL-VALSARTAN 49/51 MG TAB PO SCH (07:59)
[2018-01-23] MEDS: CHOLECALCIFEROL 1,000 UNITS TAB PO SCH (08:00)
[2018-01-23] MEDS: metOLazone 2.5 MG TABLET PO SCH (08:00)
[2018-01-23] MEDS: POTASSIUM CHLORIDE 20 MEQ TABCR PO SCH (08:00)
[2018-01-23] MEDS: PANTOprazole 40 MG TAB PO SCH (08:00)
[2018-01-23] MEDS: FUROSEMIDE 80 MG TAB PO SCH (08:00)
[2018-01-23] MEDS: INSULIN ASPART 100 UNITS/ML 3 ML PEN SC SCH ×2 (08:01→12:22)
[2018-01-23] MEDS ORDERED: COUGH DROP (SUGAR FREE) LOZ 24 LOZ/1 BOX BUCCAL ONE (10:03)
--- NOTE | 2018-01-23 14:32 | Discharge Summary ---
Date of Service January 23, 2018 Admission HPI Per Admitting Provider Chief Complaint: 42 y/o M c/o SOB and "gagging up blood". Pt states that he has been having increasing SOB with ambulation over the last 2 weeks. He is having difficulty getting from the bus stop to his home as he has to walk up hill. He has been bringing up blood that he is "gagging on", although he cannot really specify if this is from his lungs or his stomach. He states that he filled a urine collection container over the last 1.5 weeks. He has no chest pain. He states he has a pain around the lateral sides of his abd. He is bruising where he gives himself a trulicity injection. He states he never misses his medications, including this AM's meds. He is eating without issue. Pt denies fever, n/v/c/d, LE pain or swelling. Denies blood in his stool. He states that he saw blood in his urine x2 about 2 weeks ago, but this resolved on its own. Pt states he was hospitalized in [place] and told he has a leaky valve. He was put on aspirin for prevention. He denies hx of AK or CVA. Pt was given lasix 40mg IV and labetolol 10mg in the ED. Breathing improved. HR and BP rapidly improved which lead ED physician to suspect that pt had missed AM meds. Primary Care Provider: Markie Briceno MD Principal Diagnosis CHF exacerbation Discharge Exam General: no distress HEENT: normal inspection, PERLL, tender maxillary and frontal sinuses to palpation. Respiratory: chest non tender, clear to auscultation, normal breath sounds, no respiratory distress, no accessory muscle use Cardiac: regular rate and rhythm, no rub or gallop, no murmur, no edema, no jvd GI/: active bowel sounds, no abd pain or tenderness, soft, non distended Extremities: normal range of motion, normal strength, tender cervical and thoracic spine and surrounding muscles Neuro:oriented x 3, moves all extremities Psych: alert, normal mood and affect Skin: normal color, dry Discharge Data Allergies Allergy/AdvReac Type Severity Reaction Status Date / Time ceftriaxone Allergy Severe SHORTNESS Verified 01/20/18 09:48 OF BREATH lidocaine Allergy Severe SHORTNESS Verified 01/20/18 09:48 OF BREATH, diaphoretic, hives procaine Allergy Severe SHORTNESS Verified 01/20/18 09:48 OF BREATH, diaphoretic, hives amoxicillin Allergy Intermediate HIVES/FACIAL Verified 01/20/18 09:48 SWELLING lisinopril Allergy Intermediate HIVES Verified 01/20/18 09:48 albuterol Allergy Mild proair Verified 01/20/18 09:48 "trouble taking breaths" clavulanic acid Allergy Unknown . Verified 01/20/18 09:48 acetaminophen AdvReac Mild NAUSEA Verified 01/20/18 09:48 Consultations 01/20/18 11:03 ED Decision to Admit Stat 01/20/18 13:17 Consult Case Management - Discharge Planning Routine 01/21/18 14:50 Consult Pulmonology Routine Ordered Studies 01/20/18 08:31 CT abd pelvis IV con only Stat 01/21/18 14:00 FL barium swallow Routine 01/22/18 14:20 CT chest wo con Routine 01/22/18 14:28 CT head/brain wo con Routine Hospital Course (1) CHF (congestive heart failure): Acute on chronic systolic and diastolic congestive heart failure Hypoxic on admission - now on room air CHF noted on CXR and CTAP on admission Concern for missed meds, pt denies this however given that he is negative 7L this admission following administration of his home lasix regimen I suspect he was not taking his medications consistently at home or does eats significantly more sodium or both. Will set up home health for medication management Echo 07/30 showed EF 30% with diastolic failure, mild to moderate global hypokinesis of the left ventricle, repeat echo unchanged He has been ambulating halls, denies any further sob, has not had any bloody sputum in 2 days. Reports all symptoms are cleared. He would prefer to go home and follow up outpatient rather than stay for further workup here ie bronchoscopy tomorrow. He is stable and has diuresed appropriately with resolution of his symptoms so I think further workup outpatient is appropriate and he is ok for discharge. (2) Vomiting: No further bloody emesis/sputum Barium swallow without abnormalities Hemoccult negative Hgb WNL Has been seeing pulm outpatient -will consult here - they could bronch tomorrow as there is no evidence of structural issue on CT however patient elects to finish workup outpatient as above. Recent CTA neg - pulm placed order for repeat CT non contrast which showed no acute process and clear lungs (3) Uncontrolled hypertension: Improved quickly in the ED with single dose of labetolol Again, concern for missed meds stable (4) DM type 2 (diabetes mellitus, type 2): Pt is noted to be on large doses of insulin as outpt Blood sugars have been fairly well controlled inpatient A1c 7.2 held metformin inpatient - restart for home (5) Obstructive sleep apnea: As at home (6) Learning difficulties: CM alerted for d/c planning (7) Morbid obesity with body mass index of 50.0-59.9 in adult: Consulted candles pourer but patient declined nutritional counseling (8) DVT prophylaxis: held for hemoptysis (9) Sinus pain: CT head without acute process or sinusitis, sed rate marginally elevated but patient had resolution of symptoms and not high enough for suspicion of temporal arteritis Total Time Total Time Spent Total Time Spent (In Minutes): greater than 30 minutes Total Time Includes: Examination of the Patient, Discharge Planning, Medication Reconciliation and Communication With Other Providers Discharge Plan Discharge Items Patient Disposition: Home - Self-Care Reason For Visit: CHF EXACERBATION Discharge Diagnosis: Congestive Heart Failure exacerbation Discharge Goals: Improve disease control Activity: Resume your previous activity Non-emergency contact: Primary Care Provider Call non-emergency contact if: you have any medication questions, your symptoms worsen and you have a fever Follow-up/Referrals: Markie Briceno MD [Primary Care Provider] - 01/29/18 9:50 am (Please, follow up with Dr. Briceno on SundayJanuary 29 at 9:50 am. *If you need to change this appointment, call the office at [phone].) Olga Banuelos CRNP [Nurse Practitioner] - 02/04/18 10:00 am (Please, follow up in the [facility] Pulmonology Office with Olga PABON on SundayFebruary 04 at 10:00 am. *This office is located in [address] of [facility] - big building next to this hospital. If you need to change this appointment, call the office at [phone].) Diet: Carb Consistent or DM2, Heart Healthy and Low Sodium (2gm) Addtl Provider Instructions: Please continue your medications exactly as prescribed. Call 161 and go to the Emergency Room if: * You have tightness or pain in your chest that does not go away with rest or Nitroglycerin * You are very short of breath even with rest Call your doctor if any of the following symptoms or problems start or get worse: * Shortness of breath or difficulty breathing * Wake up at night short of breath * Chest pain * Cough * Swelling of your hands, fee, or legs * More fatigued or tired with your normal activity * Palpitations - sudden fast heart beats WEIGHT * Weigh yourself every morning after using the bathroom. * Use the same scale. * Wear the same amount of clothing. * Write your weight down on your chart. * Call your doctor if you gain more than 2-3 pounds in 1-2 days. MEDICATIONS * Use this discharge instruction sheet for instructions. * Take your medications at the time your doctor ordered. * Do not skip a dose of your medicines. * If you miss a dose of medicine, take as soon as possible, but DO NOT DOUBLE A DOSE. * Read your medicine information when you get home. * Know all of the side effects of your medicine. * Call your doctor's office if you have any side effects. * Be sure all of your doctors know what medicine and herbs you take (including cold, flu, and herbal medicine). * Pain Medicine: If you do not get relief from your pain, please call your doctor for help. Take the following with you to your follow-up doctor appointments: * Weight Chart * Medication List * List of questions Do not drink excessive alcohol, beer or wine. Prescriptions: Continue aspirin [Aspirin Low Dose] 81 mg Tablet,Delayed Release (Dr/Ec) 81 mg PO QAM RF: 0 potassium chloride [Klor-Con M20] 20 mEq Tablet,Er Particles/Crystals 20 meq PO QAM RF: 0 metformin 1,000 mg Tablet 1,000 mg PO BIDM RF: 0 esomeprazole magnesium [Nexium] 40 mg Capsule,Delayed Release(Dr/Ec) 40 mg PO QAM RF: 0 insulin lispro protamin-lispro [Humalog Mix 50-50 KwikPen] 100 unit/mL (50-50 ) Insulin Pen 120 unit SUBCUT QPM RF: 0 insulin lispro protamin-lispro [Humalog Mix 50-50 KwikPen] 100 unit/mL (50-50 ) Insulin Pen 135 unit SUBCUT QAM RF: 0 cholecalciferol (vitamin D3) 2,000 unit Tablet 2,000 unit PO BID RF: 0 dulaglutide [Trulicity] 1.5 mg/0.5 mL Pen Injector 1.5 mg subcut WK RF: 0 sacubitril-valsartan [Entresto] 49-51 mg Tablet 1 tab PO BID RF: 0 albuterol sulfate [Ventolin HFA] 90 mcg/actuation HFA aerosol inhaler 2 puff Inhalation Q4 PRN (Reason: Wheezing) RF: 0 furosemide 40 mg tablet 80 mg PO BID RF: 0 metolazone 2.5 mg tablet 2.5 mg PO Q2D RF: 0 Visit Report Forms: [facility] Discharge Orders: Discharge Order (Routine); Ordered 01/23/18 Ordered By: Carmen Campos Admission Data Admit Date/Time: 01/20/18 11:21 Attending Provider: Shon Gonzalez Admit Provider: Jade Spivey Primary Care Provider: Markie Briceno Other Providers: Jade Spivey ; Rose Scherer Sarah Ann Service: Telemetry
== END 2018-01-23 16:12 | disposition home health service (06) | DRG 291 ==
LOC: ED 08:20 → 2N 11:21 → SUATTDRO 11:21 → 2N 12:32

== ENCOUNTER 2018-03-08 18:04 | Inpatient (IN) ==
[2018-03-08] MEDS ORDERED: BUMETANIDE 1 MG in SYRINGE 0 ML IV STA (18:45)
[2018-03-08] MEDS ORDERED: LABETALOL HCL IV 5 MG/ML 20ML IV STA (18:45)
[2018-03-08 19:12] LABS: Basophils # (auto) 0.02 K/uL (0-0.2); Basophils % (auto) 0.2 %; Eosinophils # (auto) 0.13 K/uL (0-0.5); Eosinophils % (auto) 1.3 %; Hematocrit (blood only) 42.5 % (42-52); Hemoglobin 14.5 g/dL (14.0-18.0); Immature Granulocytes # (auto) 0.05 K/uL (0.00-0.02); Immature Granulocytes % (auto) 0.5 %; Lymphocytes # (auto) 2.16 K/uL (1.2-3.4); Lymphocytes % (auto) 21.8 %; Mean Corpuscular Hgb Conc 34.1 g/dL (32-36); Mean Corpuscular Volume 84.8 fL (80-100); Mean Platelet Volume 10.4 fL (7.4-10.4); Monocytes # (auto) 0.56 K/uL (0.11-0.59); Monocytes % (auto) 5.6 %; Neutrophils % (auto) 70.6 %; Platelet Count 147 K/uL (130-400); RDW Coefficient of Variation 14.3 % (11.5-14.5); RDW Standard Deviation 44.1 fL (36.4-46.3); Red Blood Count 5.01 M/uL (4.7-6.1); White Blood Count 9.92 K/uL (4.8-10.8)
[2018-03-08 19:18] LABS: Albumin Level 3.3 gm/dl (3.4-5.0); BUN Creatinine Ratio 13.9 (10-20); Calcium 8.2 mg/dl (8.5-10.1); Creatinine Clr Calc Pharmacy 152.4 ml/min; Est GFR (African American) 110.5; Est GFR (Non-African American) 95.4; Magnesium 1.8 mg/dl (1.8-2.4)
[2018-03-08 19:21] LABS: Partial Thromboplastin Ratio 1.1; Partial Thromboplastin Time 27.9 Seconds (21.0-31.0); Prothrombin Time 10.1 Seconds (9.0-12.0)
[2018-03-08 19:23] LABS: Albumin Globulin Ratio 0.9 (0.9-2); Bilirubin,Total 0.5 mg/dl (0.2-1); Globulin 3.7 gm/dl (2.5-4.0); Troponin I 0.019 ng/ml (0-0.045)
--- NOTE | 2018-03-08 19:31 | XRay Report ---
XR chest 1V portable CLINICAL HISTORY: 42 years-old Male presenting with sob. TECHNIQUE: Portable upright AP view of the chest was obtained. COMPARISON: 02/06/2018. FINDINGS: Atherosclerosis of the aortic arch. Cardiac silhouette enlarged. Pulmonary vascular prominence is sim ilar to prior. Bronchial wall cuffing suggested. Added density of the mid to lower lungs greater on t he right similar to prior. No large effusion or pneumothorax. Degenerative changes of the thoracic sp ine. IMPRESSION: 1. Cardiomegaly with volume overload/congestive change similar to prior exam. 2. Similar added density of the mid to lower lungs is favored to represent overlapping soft tissue. Electronically signed by: Negro Schroeder M.D. 03/08/2018 7:30 PM
[2018-03-08] MEDS ORDERED: HydrALAZINE HCL 20 MG/ML VIAL IV STA (19:47)
--- NOTE | 2018-03-08 20:38 | History & Physical Report ---
Date of Service March 08, 2018 Assessment & Plan (1) Acute exacerbation of CHF (congestive heart failure): Acute CHF exacerbation: Acute on chronic systolic heart failure likely related to medication non- compliance, although he reports otherwise. CXR on admission indicates volume overload/congestive change, similar to previous admission. - BNP on admission of 2500. Patient's discharge weight was 153.5kg, and weight on admission is 168.9kg. - Patient on nasal cannula 2L on admission. Not on oxygen at home. - Continue furosemide 40mg IV BID - On metolazone at home, will hold for now along with K tab, will add spironolactone 25 bid - Daily weights, I&Os. - Fluid restriction, low salt diet Hypertension: - Has well documented resistant HTN. - Received labetalol, hydralazine, IV bumex in ED. - Pt regularly sits at 160s/110s - Continue Entresto - Lasix and spironolactone - Hydralazine PRN DM type 2 (diabetes mellitus, type 2): -Patient requires high doses of 50/50 insulin at home, but per last visit, insulin requirements were significantly decreased likely related to controlled diet. -Will start ISS and glargine 15 BID per previous visit. Adjust prn GERD (gastroesophageal reflux disease): - Currently with epigastric discomfort - Protonix daily COPD (chronic obstructive pulmonary disease): -No wheezing on exam, no other signs/symptoms concerning for COPD exacerbation. -Uses incruse ellipta at home, will start spiriva while inpatient Hemoptysis, chronic: - Possibly due to airway edema from CHF - Diuresis and monitor - Normal H/H - Follows with pulm as outpatient, was meant to have scan in Mar 2018 Learning difficulties: - Per previous admission: This makes some of his medical issues difficult to manage as it seems that he has trouble understanding the cause/effect relationship of not taking his medications. Patient lives [facility]. - Consider discussing with CM if any resources are available to assist patient DVT prophylaxis: Heparin 5000 BID Code: Full Dispo: Inpt management for diuresis, likely home soon. (2) Acute and chronic respiratory failure: (3) Hypertension: (4) COPD (chronic obstructive pulmonary disease): (5) CHF (congestive heart failure): (6) CHF exacerbation: (7) DM type 2 (diabetes mellitus, type 2): (8) Vomiting: (9) Obstructive sleep apnea: (10) Learning difficulties: (11) Idiopathic peripheral autonomic neuropathy: (12) Abdominal pain: (13) Epigastric pain: (14) Diabetic peripheral neuropathy associated with type 2 diabetes mellitus: History of Present Illness Chief Complaint: shortness of breath, weight gain Primary Care Provider: Bertrand Briceno MD Patient is a 42 yo morbidly obese man with known CHF, recently discharge who presents to the ER with c/o weight gain since discharge, increasing dyspnea, 1 episode of vomiting, right sided tingling (resolved) and epigastric pain. He does state he has been taking medications as prescribed since his discharge <30 days ago. PMH significant for CHF, chronic respiratory failure, GERD, Resistant HTN, MARIELENA, learning difficulties, preripheral neuropathy, T2DM, nonischemic cardiomyopathy, medication noncompliance, depression, fatty liver. In the ER he was found to have crackles, hypoxia, fluid overload, HTN, and was given labetalol, hydralazine, IV bumex, and started on 2L NC. Pt states he does not wear oxygen at home. Allergies Allergy/AdvReac Type Severity Reaction Status Date / Time ceftriaxone Allergy Severe SHORTNESS Verified 02/06/18 18:39 OF BREATH lidocaine Allergy Severe SHORTNESS Verified 02/06/18 18:39 OF BREATH, diaphoretic, hives procaine Allergy Severe SHORTNESS Verified 02/06/18 18:39 OF BREATH, diaphoretic, hives amoxicillin Allergy Intermediate HIVES/FACIAL Verified 02/06/18 18:39 SWELLING lisinopril Allergy Intermediate HIVES Verified 02/06/18 18:39 albuterol Allergy Mild proair Verified 02/06/18 18:39 "trouble taking breaths" clavulanic acid Allergy Unknown . Verified 02/06/18 18:39 acetaminophen AdvReac Mild NAUSEA Verified 02/06/18 18:39 Home Medications Home Medications Medication Instructions Recorded Confirmed Type aspirin [Aspirin Low Dose] 81 mg PO QAM 11/28/17 03/08/18 History cholecalciferol (vitamin D3) 2,000 unit PO BID 11/28/17 03/08/18 History dulaglutide [Trulicity] 1.5 mg SUBCUT WK 11/28/17 03/08/18 History esomeprazole magnesium [Nexium] 40 mg PO QAM 11/28/17 03/08/18 History insulin lispro protamin-lispro 120 unit SUBCUT QPM 11/28/17 03/08/18 History [Humalog Mix 50-50 KwikPen] insulin lispro protamin-lispro 135 unit SUBCUT QAM 11/28/17 03/08/18 History [Humalog Mix 50-50 KwikPen] metformin 1,000 mg PO BIDM 11/28/17 03/08/18 History potassium chloride [Klor-Con M20] 20 meq PO QAM 11/28/17 03/08/18 History furosemide 80 mg PO BID 01/20/18 03/08/18 History metolazone 2.5 mg PO DIRECTED 01/20/18 03/08/18 History sacubitril-valsartan 1 tab PO BID 03/08/18 History umeclidinium [Incruse Ellipta] 2 puff INHALATION DAILY 03/08/18 History Past Med/Surg History Medical History COPD (chronic obstructive pulmonary disease) (Chronic) CHF (congestive heart failure) (Chronic) Cognitive impairment DM II (diabetes mellitus, type II), controlled Depression Fatty liver GERD (gastroesophageal reflux disease) HTN (hypertension) Medical non-compliance Morbid obesity with BMI of 50.0-59.9, adult Nonischemic cardiomyopathy EF 30-35% MARIELENA (obstructive sleep apnea) Does not comply with CPAP Surgical History History of cholecystectomy Family History Other No pertinent family history Social History marital status: Current Living Situation: Spouse current occupational status: unemployed Other Information That Helps Us Care for You: No Feels Safe at Home: Yes Safety Concerns: Feels Safe At This Time Smoking Status: Former smoker Do You Dip or Chew Tobacco: No Second Hand Exposure: No Hx Alcohol Use: No Hx Substance Use: No Beliefs That Will Affect Care: None Communication Ability: Effective Review of Systems All systems reviewed & are unremarkable except as noted in HPI & below Constitutional: + weakness and + weight gain Eyes: no diplopia, no eye pain and no spots in vision Ear, Nose, Mouth, Throat: no hearing loss Respiratory: + cough, + dyspnea and + dyspnea on exertion Cardiovascular: + dyspnea at rest, + dyspnea on exertion, + paroxysmal nocturnal dyspnea and + edema; no chest pain, no radiating jaw, neck or arm pain , no palpitations, no lightheadedness and no calf pain Gastrointestinal: + abdominal pain, + bloating and + 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)); no nausea Genitourinary (Male): + urinary frequency Physical Exam 2 Vital Signs (Past 24 Hours): Last Vital Signs Temp 36.5 C 03/08/18 18:14 Pulse 112 H 03/08/18 20:20 Resp 22 03/08/18 20:20 BP 170/137 H 03/08/18 20:01 Pulse Ox 96 03/08/18 20:20 Constitutional: WD/WN, vitals as above + morbidly obese Eyes: PERRL, conjunctivae normal, anicteric sclerae ENMT: external ear and nose normal, oropharynx normal Neck: Large neck Respiratory: normal respiratory effort; no respiratory distress, no labored breathing and does not use accessory muscles Auscultation: + crackles (faint , bibasilar) Cardiovascular: Rate/Rhythm: regular rate and regular rhythm Heart Sounds: normal S1 and normal S2; no murmur Vessels: normal peripheral pulses Extremities: + edema (1-2+ bilateral from ankle to knee) Gastrointestinal (Abdomen): Inspection/Auscultation: + abdomen distended Percussion/Palpation: + abdomen tender (epigastric) Skin: + turgor decreased Neurologic: PERRL, EOMI, accommodation nl, no face palsy, no dysarthria Psychiatric: Orientation: alert and oriented x 3 Insight: + limited insight Results & Data Laboratory Results 03/08/18 03/08/18 03/08/18 Range/Units 18:30 18:30 18:30 WBC 9.92 (4.8-10.8) K/uL RBC 5.01 (4.7-6.1) M/uL Hgb 14.5 (14.0-18.0) g/dL Hct 42.5 (42-52) % MCV 84.8 (80-100) fL MCH 28.9 (25-34) pg MCHC 34.1 (32-36) g/dL RDW Std Deviation 44.1 (36.4-46.3) fL RDW Coeff of Zoltan 14.3 (11.5-14.5) % Plt Count 147 (130-400) K/uL MPV 10.4 (7.4-10.4) fL Immature Gran % (Auto) 0.5 % Neut % (Auto) 70.6 % Lymph % (Auto) 21.8 % Kenton % (Auto) 5.6 % Eos % (Auto) 1.3 % Baso % (Auto) 0.2 % Immature Gran # (Auto) 0.05 H (0.00-0.02) K/uL Neut # (Auto) 7.00 H (1.4-6.5) K/uL Lymph # (Auto) 2.16 (1.2-3.4) K/uL Kenton # (Auto) 0.56 (0.11-0.59) K/uL Eos # (Auto) 0.13 (0-0.5) K/uL Baso # (Auto) 0.02 (0-0.2) K/uL PT 10.1 (9.0-12.0) Seconds INR 1.0 (0.9-1.1) APTT 27.9 (21.0-31.0) Seconds PTT Ratio 1.1 Sodium 139 (136-145) mmol/L Potassium 4.0 (3.5-5.1) mmol/L Chloride 106 (98-107) mmol/L Carbon Dioxide 25 (21-32) mmol/L Anion Gap 8.0 (3-11) BUN 14 (7-18) mg/dl Creatinine 0.98 (0.6-1.4) mg/dl Est Cr Clr Drug Dosing 152.4 ml/min Est GFR ( Amer) 110.5 Est GFR (Non-Af Amer) 95.4 BUN/Creatinine Ratio 13.9 (10-20) Glucose 143 H (70-99) mg/dl Calcium 8.2 L (8.5-10.1) mg/dl Magnesium 1.8 (1.8-2.4) mg/dl Total Bilirubin 0.5 (0.2-1) mg/dl AST 29 (15-37) U/L ALT 41 (12-78) U/L Alkaline Phosphatase 92 (45-117) U/L Troponin I 0.019 (0-0.045) ng/ml NT-Pro-B Natriuret Pep 2479 H (0-450) pg/ml Total Protein 7.0 (6.4-8.2) gm/dl Albumin 3.3 L (3.4-5.0) gm/dl Globulin 3.7 (2.5-4.0) gm/dl Albumin/Globulin Ratio 0.9 (0.9-2) Medications Administered Current Inpatient Medications Aspirin (Ecotrin Ectab) 81 mg PO QAM SUKHWINDER Stop: 04/08/18 08:59 Potassium Chloride (Klor-Con M20) 20 meq PO QAM SUKHWINDER Stop: 04/08/18 08:59 Code Status & VTE Plan Code Status Full VTE Prophylaxis Plan VTE Prophylaxis will be ordered: Yes Supervising Physician Co-Signing Physician Notes Attending addendum: I have physically seen this patient, have supervised the medical residents activities, and agree with the H&P unless as otherwise noted. Assessment and Plan: Acute on chronic systolic CHF/hypertension-- The patient will be admitted to telemetry for serial cardiac enzymes, serial EKG's, cardiac rhythm monitoring and a 2-D echocardiogram with Dopplers. Medication noncompliance associated with learning difficulty, living in a [place] [facility]. Consult school social worker. Most recent hospitalization from 02/06-02/10, with noted 15 kg weight gain since discharge. Furosemide 40 mg IV twice daily. At home takes metolazone 3 times per week, which will be held for now. Add Spironolactone 25 mg p.o. twice daily and titrate. Continue Entresto. Hydralazine 10 mg IV every 4 hours as needed systolic blood pressure above 160. Patient's blood pressure tends to be high secondary to ingrained resistance due to noncompliance with medications. Remainder of orders and notations as noted. Resident Activity Tracking Resident Involvement: Resident Care Provided Care Provided: [facility] _ (1) CHF exacerbation Heart failure type: systolic Qualified Code(s): I50.23 - Acute on chronic systolic (congestive) heart failure (2) Acute exacerbation of CHF (congestive heart failure) Heart failure type: combined systolic and diastolic Qualified Code(s): I50.43 - Acute on chronic combined systolic (congestive) and diastolic ( congestive) heart failure (3) DM type 2 (diabetes mellitus, type 2) Chronic kidney disease stage: Diabetes mellitus complication detail: with other circulatory complications Diabetes mellitus complication status: with circulatory complication Diabetes mellitus long term care social worker insulin use: with long term care social worker use Diabetes mellitus macular edema: Diabetic retinopathy severity: Laterality: Proliferative retinopathy type: Qualified Code(s): E11.59 - Type 2 diabetes mellitus with other circulatory complications; Z79.4 - retirement (current) use of insulin (4) Acute and chronic respiratory failure Respiratory failure complication: hypoxia Qualified Code(s): J96.21 - Acute and chronic respiratory failure with hypoxia (5) CHF (congestive heart failure) Heart failure chronicity: acute on chronic Heart failure type: unspecified Qualified Code(s): I50.9 - Heart failure, unspecified (6) COPD (chronic obstructive pulmonary disease) COPD type: unspecified COPD Chronic bronchitis type: Emphysema type: Qualified Code(s): J44.9 - Chronic obstructive pulmonary disease, unspecified (7) Hypertension Hypertension type: essential hypertension Qualified Code(s): I10 - Essential (primary) hypertension
[2018-03-08] MEDS ORDERED: GLUCAGON FOR INJ 1 MG VIAL SQ PRN (22:58)
[2018-03-08] MEDS ORDERED: GLUCOSE 10 TABS/TUBE PO PRN (22:58)
[2018-03-08] MEDS ORDERED: DEXTROSE 50% 50 ML SYRINGE IV PRN (22:58)
[2018-03-08] MEDS ORDERED: ONDANSETRON INJ 2 MG/ML 2 ML VIAL IV PRN (22:58)
[2018-03-08] MEDS ORDERED: POLYETHYLENE (MIRALAX) 17 GM PACK PO PRN (22:58)
[2018-03-08] MEDS ORDERED: ALUMINUM/MAGNESIUM SUSP 30 ML UDC PO PRN (22:58)
[2018-03-08] MEDS ORDERED: HydrALAZINE HCL 20 MG/ML VIAL IV PRN (22:58)
[2018-03-08] MEDS ORDERED: ACETAMINOPHEN 325 MG TAB PO PRN (22:58)
[2018-03-08] MEDS ORDERED: MAGNESIUM HYDROXIDE SUSP 30 ML UDC PO PRN (22:58)
[2018-03-08] MEDS ORDERED: GLUCOSE 40% GEL 15 GM TUBE PO PRN (22:58)
[2018-03-08] MEDS ORDERED: CARBOHYDRATES FOR HYPOGLYCEMIA PO PRN (22:58)
--- NOTE | 2018-03-09 01:55 | Emergency Department Note ---
Entered by Tiffani Villasenor acting as a scribe for Abhilash Fuentes MD History of Present Illness General Chief complaint: Shortness of Breath/Dyspnea Stated complaint: SOB, CHEST PAIN Time Seen by Provider: 03/08/18 18:38 Source: patient Mode of arrival: EMS History of Present Illness Onset (ago): hour(s) (this morning ) Location: chest (shortness of breath) Pain Consistency: + other (worsening) Maximum Pain Intensity: 10 Associated symptoms: + nausea/vomiting and + other (frequent urination); no fever/chills Treatments prior to arrival: aspirin (4 baby asprin) and other (nitroglycerin) The patient is a 42 year old M who presents to the Emergency Room with complaints of worsening shortness of breath starting this morning. The patient was brought to the ED by ambulance and was administered 4 baby aspirins and nitroglycerin prior to arrival. He states that he was discharged from the hospital on the 10 of February for an exacerbation of CHF. He adds that in the hospital he was losing weight but after being discharged he has been gaining weigh again due to fluid buildup. He states that he is regularly taking his diuretic medication. He denies eating much food recently. He notes that he is currently experiencing vomiting and frequent urination. He denies having a fever. He adds that he is not normally on oxygen at home. Home Medications Home Medications Medication Instructions Recorded Confirmed Type aspirin [Aspirin Low Dose] 81 mg PO QAM 11/28/17 03/08/18 History cholecalciferol (vitamin D3) 2,000 unit PO BID 11/28/17 03/08/18 History dulaglutide [Trulicity] 1.5 mg SUBCUT WK 11/28/17 03/08/18 History esomeprazole magnesium [Nexium] 40 mg PO QAM 11/28/17 03/08/18 History insulin lispro protamin-lispro 120 unit SUBCUT QPM 11/28/17 03/08/18 History [Humalog Mix 50-50 KwikPen] insulin lispro protamin-lispro 135 unit SUBCUT QAM 11/28/17 03/08/18 History [Humalog Mix 50-50 KwikPen] metformin 1,000 mg PO BIDM 11/28/17 03/08/18 History potassium chloride [Klor-Con M20] 20 meq PO QAM 11/28/17 03/08/18 History furosemide 80 mg PO BID 01/20/18 03/08/18 History metolazone 2.5 mg PO DIRECTED 01/20/18 03/08/18 History sacubitril-valsartan 1 tab PO BID 03/08/18 History umeclidinium [Incruse Ellipta] 2 puff INHALATION DAILY 03/08/18 History Allergies Allergy/AdvReac Type Severity Reaction Status Date / Time ceftriaxone Allergy Severe SHORTNESS Verified 02/06/18 18:39 OF BREATH lidocaine Allergy Severe SHORTNESS Verified 02/06/18 18:39 OF BREATH, diaphoretic, hives procaine Allergy Severe SHORTNESS Verified 02/06/18 18:39 OF BREATH, diaphoretic, hives amoxicillin Allergy Intermediate HIVES/FACIAL Verified 02/06/18 18:39 SWELLING lisinopril Allergy Intermediate HIVES Verified 02/06/18 18:39 albuterol Allergy Mild proair Verified 02/06/18 18:39 "trouble taking breaths" clavulanic acid Allergy Unknown . Verified 02/06/18 18:39 acetaminophen AdvReac Mild NAUSEA Verified 02/06/18 18:39 Past Med/Surg History Medical History COPD (chronic obstructive pulmonary disease) (Chronic) CHF (congestive heart failure) (Chronic) Cognitive impairment DM II (diabetes mellitus, type II), controlled Depression Fatty liver GERD (gastroesophageal reflux disease) HTN (hypertension) Medical non-compliance Morbid obesity with BMI of 50.0-59.9, adult Nonischemic cardiomyopathy EF 30-35% MARIELENA (obstructive sleep apnea) Does not comply with CPAP Surgical History History of cholecystectomy Family History Other No pertinent family history Social History marital status: Current Living Situation: Spouse current occupational status: unemployed Other Information That Helps Us Care for You: No Feels Safe at Home: Yes Safety Concerns: Feels Safe At This Time Smoking Status: Former smoker Do You Dip or Chew Tobacco: No Second Hand Exposure: No Hx Alcohol Use: No Hx Substance Use: No Beliefs That Will Affect Care: None Preferred Language: Moroccan Communication Ability: Effective Solderer Torch Required: No Review of Systems See HPI for pertinent positives & negatives. and A total of 10 systems reviewed and were otherwise negative Physical Exam Vital Signs Vital Signs - 24 hr 03/08/18 18:10 03/08/18 18:14 03/08/18 18:55 Temperature 36.5 C Temperature Source Oral Sepsis Recent Fever Within 48 Hours No Sepsis New/Unexplained Change in Mental Status No Sepsis Action Taken by Nursing No Action Required Pulse Rate 115 H 114 H 107 H Pulse Rate [Left] Pulse Rhythm Regular Pulse Strength Normal Respiratory Rate 22 26 H 30 H Respiratory Effort / Characteristics Labored Respiratory Depth Shallow Respiratory Pattern Rapid/Deep Blood Pressure 191/121 H 191/121 H 188/134 H Blood Pressure [Left Arm] Blood Pressure Mean 144 144 152 Blood Pressure Mean [Left Arm] Blood Pressure Position Lying Blood Pressure Position [Left Arm] Pulse Oximetry 92 88 L 94 Oxygen Delivery Method Nasal Cannula Room Air Nasal Cannula Oxygen Flow Rate 2 2 03/08/18 19:19 03/08/18 19:57 03/08/18 20:00 Temperature Temperature Source Sepsis Recent Fever Within 48 Hours Sepsis New/Unexplained Change in Mental Status Sepsis Action Taken by Nursing Pulse Rate 100 H 105 H 107 H Pulse Rate [Left] Pulse Rhythm Pulse Strength Respiratory Rate 25 H 27 H 18 Respiratory Effort / Characteristics Respiratory Depth Respiratory Pattern Blood Pressure 203/158 H 212/139 H Blood Pressure [Left Arm] Blood Pressure Mean 173 163 Blood Pressure Mean [Left Arm] Blood Pressure Position Blood Pressure Position [Left Arm] Pulse Oximetry 94 93 95 Oxygen Delivery Method Nasal Cannula Oxygen Flow Rate 2 03/08/18 20:01 03/08/18 20:10 03/08/18 20:20 Temperature Temperature Source Sepsis Recent Fever Within 48 Hours Sepsis New/Unexplained Change in Mental Status Sepsis Action Taken by Nursing Pulse Rate 104 H 108 H 112 H Pulse Rate [Left] Pulse Rhythm Pulse Strength Respiratory Rate 19 16 22 Respiratory Effort / Characteristics Respiratory Depth Respiratory Pattern Blood Pressure 170/137 H Blood Pressure [Left Arm] Blood Pressure Mean 148 Blood Pressure Mean [Left Arm] Blood Pressure Position Blood Pressure Position [Left Arm] Pulse Oximetry 96 95 96 Oxygen Delivery Method Oxygen Flow Rate 03/08/18 20:30 03/08/18 21:00 03/08/18 21:02 Temperature Temperature Source Sepsis Recent Fever Within 48 Hours Sepsis New/Unexplained Change in Mental Status Sepsis Action Taken by Nursing Pulse Rate 108 H 107 H 105 H Pulse Rate [Left] Pulse Rhythm Pulse Strength Respiratory Rate 27 H 21 23 Respiratory Effort / Characteristics Respiratory Depth Respiratory Pattern Blood Pressure 199/133 H 217/150 H 216/131 H Blood Pressure [Left Arm] Blood Pressure Mean 155 172 159 Blood Pressure Mean [Left Arm] Blood Pressure Position Blood Pressure Position [Left Arm] Pulse Oximetry 96 94 94 Oxygen Delivery Method Oxygen Flow Rate 03/08/18 21:20 03/08/18 21:43 03/08/18 22:00 Temperature Temperature Source Sepsis Recent Fever Within 48 Hours Sepsis New/Unexplained Change in Mental Status Sepsis Action Taken by Nursing Pulse Rate 111 H 108 H 106 H Pulse Rate [Left] Pulse Rhythm Pulse Strength Respiratory Rate 19 19 17 Respiratory Effort / Characteristics Respiratory Depth Respiratory Pattern Blood Pressure 209/132 H 172/112 H 158/135 H Blood Pressure [Left Arm] Blood Pressure Mean 157 132 142 Blood Pressure Mean [Left Arm] Blood Pressure Position Blood Pressure Position [Left Arm] Pulse Oximetry 95 94 95 Oxygen Delivery Method Oxygen Flow Rate 03/08/18 22:30 03/09/18 00:15 03/09/18 00:25 Temperature Temperature Source Sepsis Recent Fever Within 48 Hours Sepsis New/Unexplained Change in Mental Status Sepsis Action Taken by Nursing Pulse Rate 106 H Pulse Rate [Left] Pulse Rhythm Pulse Strength Respiratory Rate 24 Respiratory Effort / Characteristics Labored Labored Respiratory Depth Normal Normal Respiratory Pattern Regular Blood Pressure 165/114 H Blood Pressure [Left Arm] Blood Pressure Mean 131 Blood Pressure Mean [Left Arm] Blood Pressure Position Blood Pressure Position [Left Arm] Pulse Oximetry 96 Oxygen Delivery Method Nasal Cannula Nasal Cannula Oxygen Flow Rate 2 2 03/09/18 08:00 03/09/18 08:43 03/09/18 10:00 Temperature 36.6 C Temperature Source Oral Sepsis Recent Fever Within 48 Hours Sepsis New/Unexplained Change in Mental Status Sepsis Action Taken by Nursing Pulse Rate Pulse Rate [Left] 122 H 103 H Pulse Rhythm Pulse Strength Respiratory Rate 19 Respiratory Effort / Characteristics Non-Labored Respiratory Depth Normal Respiratory Pattern Regular Blood Pressure Blood Pressure [Left Arm] 219/145 H 173/99 H Blood Pressure Mean Blood Pressure Mean [Left Arm] 169 123 Blood Pressure Position Blood Pressure Position [Left Arm] Sitting Pulse Oximetry 96 Oxygen Delivery Method Nasal Cannula Nasal Cannula Oxygen Flow Rate 2 2 GENERAL: Patient is in no acute distress. HEENT: No acute trauma, normocephalic atraumatic, mucous membranes moist, no nasal congestion, no scleral icterus. NECK: No stridor, no adenopathy, no meningismus, trachea is midline. LUNGS: scattered crackles bilaterally, diminished breathing bilaterally, no wheezing HEART: mildly tachycardic, subtle systolic murmur, regular rhythm ABDOMEN: Soft, nontender, bowel sounds positive, no hernias, no peritonitis. EXTREMITIES: No cyanosis, mild bilateral pedal edema, full range of motion of all the joints without pain or difficulty, no signs for acute trauma. NEUROLOGIC: Oriented x 3, no acute motor or sensory deficits, no focal weakness. SKIN: No rash, no jaundice, no diaphoresis. Course 1838: Past medical records reviewed. The patient was evaluated in room B7, and a complete history and physical examination were performed. 1952: I reviewed the patient's case with Dr. Noé Jaquez, [facility] Hospitalist. He will evaluate the patient for further management. 1957: I re-evaluated the patient and updated him on the plan. I also spoke to the patient's significant other over the phone. Consultations Consultation #1: I reviewed the patient's case with Dr. Noé Jaquez, [facility] Hospitalist. He will evaluate the patient for further management. Time: 19:53 Administered Medications Aspirin (Ecotrin Ectab) 81 mg PO QAM [facility] Stop: 04/08/18 08:59 Last Admin: 03/09/18 07:57 Dose: 81 mg Heparin Sodium (Porcine) (Heparin Sodium (Porcine)) 5,000 units SQ Q12 [facility] Stop: 04/08/18 08:59 Last Admin: 03/09/18 07:58 Dose: 5,000 units Hydralazine HCl (Hydralazine Hcl) 10 mg IV Q6H PRN PRN Reason: Hypertension Stop: 04/07/18 22:57 Last Admin: 03/09/18 08:38 Dose: 10 mg Pantoprazole Sodium 40 mg/ (Syringe) 10 mls @ 5 mls/min IV DAILY@1100 [facility] Stop: 04/08/18 10:59 Last Admin: 03/09/18 10:29 Dose: 5 mls/min Furosemide 40 mg/ Syringe 4 mls @ 4 mls/min IV BID17 [facility] Stop: 04/08/18 08:59 Last Admin: 03/09/18 07:58 Dose: 4 mls/min Insulin Aspart (Novolog Flexpen) 0 units SC ACHS [facility] Stop: 04/08/18 07:29 Last Admin: 03/09/18 08:40 Dose: 3 units Insulin Glargine (Lantus Solostar Pen) 15 units SC Q12 [facility] Stop: 04/07/18 22:57 Last Admin: 03/09/18 08:40 Dose: 15 units Admin: 03/09/18 02:24 Dose: Not Given Potassium Chloride (Klor-Con M20) 20 meq PO QAM [facility] Stop: 04/08/18 08:59 Last Admin: 03/09/18 07:57 Dose: 20 meq Sacubitril/Valsartan (Entresto 24/26mg) 1 tab PO BID [facility] Stop: 04/08/18 08:59 Last Admin: 03/09/18 07:57 Dose: 1 tab Spironolactone (Aldactone) 25 mg PO BID17 [facility] Stop: 04/08/18 08:59 Last Admin: 03/09/18 07:57 Dose: 25 mg Tiotropium [place] (Spiriva) 1 puffs INH QAM [facility] Stop: 04/08/18 08:59 Last Admin: 03/09/18 07:57 Dose: 1 puffs Discontinued Medications Hydralazine HCl (Hydralazine Hcl) 10 mg IV NOW STA Stop: 03/08/18 19:48 Last Admin: 03/08/18 19:53 Dose: 10 mg Bumetanide 1 mg/ Syringe 4 mls @ 4 mls/min IV NOW STA Stop: 03/08/18 18:46 Last Admin: 03/08/18 19:30 Dose: 4 mls/min Labetalol HCl (Normodyne) 20 mg IV NOW STA Stop: 03/08/18 18:46 Last Admin: 03/08/18 18:56 Dose: 20 mg Medical Decision Making Differential Diagnosis Differential Diagnosis includes: exacerbation of COPD, CHF, pneumonia, cardiac ischemia, medication noncompliance, anemia, [place], electrolyte imbalance Medical Records Attestation: I reviewed the patient's medical records. Home Medications Current Medication List: was personally reviewed by me Laboratory Data Attestation: I reviewed the patient's lab results. Result diagrams: 03/09/18 08:03 03/09/18 08:03 Lab Results 03/08/18 03/08/18 03/08/18 Range/Units 18:30 18:30 18:30 WBC 9.92 (4.8-10.8) K/uL RBC 5.01 (4.7-6.1) M/uL Hgb 14.5 (14.0-18.0) g/dL Hct 42.5 (42-52) % MCV 84.8 (80-100) fL MCH 28.9 (25-34) pg MCHC 34.1 (32-36) g/dL RDW Std Deviation 44.1 (36.4-46.3) fL RDW Coeff of Zoltan 14.3 (11.5-14.5) % Plt Count 147 (130-400) K/uL MPV 10.4 (7.4-10.4) fL Immature Gran % (Auto) 0.5 % Neut % (Auto) 70.6 % Lymph % (Auto) 21.8 % Cuming % (Auto) 5.6 % Eos % (Auto) 1.3 % Baso % (Auto) 0.2 % Immature Gran # (Auto) 0.05 H (0.00-0.02) K/uL Neut # (Auto) 7.00 H (1.4-6.5) K/uL Lymph # (Auto) 2.16 (1.2-3.4) K/uL Cuming # (Auto) 0.56 (0.11-0.59) K/uL Eos # (Auto) 0.13 (0-0.5) K/uL Baso # (Auto) 0.02 (0-0.2) K/uL PT 10.1 (9.0-12.0) Seconds INR 1.0 (0.9-1.1) APTT 27.9 (21.0-31.0) Seconds PTT Ratio 1.1 Sodium 139 (136-145) mmol/L Potassium 4.0 (3.5-5.1) mmol/L Chloride 106 (98-107) mmol/L Carbon Dioxide 25 (21-32) mmol/L Anion Gap 8.0 (3-11) BUN 14 (7-18) mg/dl Creatinine 0.98 (0.6-1.4) mg/dl Est Cr Clr Drug Dosing 152.4 ml/min Est GFR ( Amer) 110.5 Est GFR (Non-Af Amer) 95.4 BUN/Creatinine Ratio 13.9 (10-20) Glucose 143 H (70-99) mg/dl POC Glucose (70-99) Estimat Average Glucose mg/dl Hemoglobin A1c (4.5-5.6) % Calcium 8.2 L (8.5-10.1) mg/dl Magnesium 1.8 (1.8-2.4) mg/dl Total Bilirubin 0.5 (0.2-1) mg/dl AST 29 (15-37) U/L ALT 41 (12-78) U/L Alkaline Phosphatase 92 (45-117) U/L Troponin I 0.019 (0-0.045) ng/ml NT-Pro-B Natriuret Pep 2479 H (0-450) pg/ml Total Protein 7.0 (6.4-8.2) gm/dl Albumin 3.3 L (3.4-5.0) gm/dl Globulin 3.7 (2.5-4.0) gm/dl Albumin/Globulin Ratio 0.9 (0.9-2) 03/09/18 03/09/18 03/09/18 Range/Units 08:03 08:03 08:03 WBC 9.34 (4.8-10.8) K/uL RBC 4.93 (4.7-6.1) M/uL Hgb 14.3 (14.0-18.0) g/dL Hct 42.1 (42-52) % MCV 85.4 (80-100) fL MCH 29.0 (25-34) pg MCHC 34.0 (32-36) g/dL RDW Std Deviation 44.8 (36.4-46.3) fL RDW Coeff of Zoltan 14.4 (11.5-14.5) % Plt Count 141 (130-400) K/uL MPV 10.1 (7.4-10.4) fL Immature Gran % (Auto) 0.5 % Neut % (Auto) 70.7 % Lymph % (Auto) 21.0 % Cuming % (Auto) 6.3 % Eos % (Auto) 1.4 % Baso % (Auto) 0.1 % Immature Gran # (Auto) 0.05 H (0.00-0.02) K/uL Neut # (Auto) 6.60 H (1.4-6.5) K/uL Lymph # (Auto) 1.96 (1.2-3.4) K/uL Cuming # (Auto) 0.59 (0.11-0.59) K/uL Eos # (Auto) 0.13 (0-0.5) K/uL Baso # (Auto) 0.01 (0-0.2) K/uL PT (9.0-12.0) Seconds INR (0.9-1.1) APTT (21.0-31.0) Seconds PTT Ratio Sodium 137 (136-145) mmol/L Potassium 3.9 (3.5-5.1) mmol/L Chloride 104 (98-107) mmol/L Carbon Dioxide 23 (21-32) mmol/L Anion Gap 10.0 (3-11) BUN 12 (7-18) mg/dl Creatinine 0.87 (0.6-1.4) mg/dl Est Cr Clr Drug Dosing 171.6 ml/min Est GFR ( Amer) 124.2 Est GFR (Non-Af Amer) 107.2 BUN/Creatinine Ratio 14.2 (10-20) Glucose 148 H (70-99) mg/dl POC Glucose (70-99) Estimat Average Glucose 171 mg/dl Hemoglobin A1c 7.6 H (4.5-5.6) % Calcium 8.4 L (8.5-10.1) mg/dl Magnesium (1.8-2.4) mg/dl Total Bilirubin (0.2-1) mg/dl AST (15-37) U/L ALT (12-78) U/L Alkaline Phosphatase (45-117) U/L Troponin I (0-0.045) ng/ml NT-Pro-B Natriuret Pep (0-450) pg/ml Total Protein (6.4-8.2) gm/dl Albumin (3.4-5.0) gm/dl Globulin (2.5-4.0) gm/dl Albumin/Globulin Ratio (0.9-2) 03/09/18 Range/Units 08:22 WBC (4.8-10.8) K/uL RBC (4.7-6.1) M/uL Hgb (14.0-18.0) g/dL Hct (42-52) % MCV (80-100) fL MCH (25-34) pg MCHC (32-36) g/dL RDW Std Deviation (36.4-46.3) fL RDW Coeff of Zoltan (11.5-14.5) % Plt Count (130-400) K/uL MPV (7.4-10.4) fL Immature Gran % (Auto) % Neut % (Auto) % Lymph % (Auto) % Cuming % (Auto) % Eos % (Auto) % Baso % (Auto) % Immature Gran # (Auto) (0.00-0.02) K/uL Neut # (Auto) (1.4-6.5) K/uL Lymph # (Auto) (1.2-3.4) K/uL Cuming # (Auto) (0.11-0.59) K/uL Eos # (Auto) (0-0.5) K/uL Baso # (Auto) (0-0.2) K/uL PT (9.0-12.0) Seconds INR (0.9-1.1) APTT (21.0-31.0) Seconds PTT Ratio Sodium (136-145) mmol/L Potassium (3.5-5.1) mmol/L Chloride (98-107) mmol/L Carbon Dioxide (21-32) mmol/L Anion Gap (3-11) BUN (7-18) mg/dl Creatinine (0.6-1.4) mg/dl Est Cr Clr Drug Dosing ml/min Est GFR ( Amer) Est GFR (Non-Af Amer) BUN/Creatinine Ratio (10-20) Glucose (70-99) mg/dl POC Glucose 152 H (70-99) Estimat Average Glucose mg/dl Hemoglobin A1c (4.5-5.6) % Calcium (8.5-10.1) mg/dl Magnesium (1.8-2.4) mg/dl Total Bilirubin (0.2-1) mg/dl AST (15-37) U/L ALT (12-78) U/L Alkaline Phosphatase (45-117) U/L Troponin I (0-0.045) ng/ml NT-Pro-B Natriuret Pep (0-450) pg/ml Total Protein (6.4-8.2) gm/dl Albumin (3.4-5.0) gm/dl Globulin (2.5-4.0) gm/dl Albumin/Globulin Ratio (0.9-2) Imaging Data Radiologist's Impression: Radiology results as stated below per my review and the radiologist's interpretation: XR chest 1V portable CLINICAL HISTORY: 42 years-old Male presenting with sob. TECHNIQUE: Portable upright AP view of the chest was obtained. COMPARISON: 02/06/2018. FINDINGS: Atherosclerosis of the aortic arch. Cardiac silhouette enlarged. Pulmonary vascular prominence is similar to prior. Bronchial wall cuffing suggested. Added density of the mid to lower lungs greater on the right similar to prior. No large effusion or pneumothorax. Degenerative changes of the thoracic spine. IMPRESSION: 1. Cardiomegaly with volume overload/congestive change similar to prior exam. 2. Similar added density of the mid to lower lungs is favored to represent overlapping soft tissue. Electronically signed by: Negro Schroeder M.D. 03/08/2018 7:30 PM ECG Data Attestation: I personally reviewed and interpreted this ECG as follows: Indication: SOB/dyspnea Rate (beats per minute): 112 Rhythm: sinus tachycardia Findings: no PVC and no ST elevation Blood Pressure Blood Pressure Findings: Elevated blood pressure Blood Pressure Disposition: further management by hospitalist [facility] Narrative There is no leukocytosis or concerning anemia. No coagulopathy. No significant electrolyte abnormality or kidney failure. No evidence for hepatitis. BNP is elevated consistent with fluid overload. Chest film does suggest some CHF, no pneumonia. EKG shows a sinus rhythm, no acute ischemia. Cardiac enzyme testing x1 is not consistent with acute cardiac injury. The patient presents with hypoxia, shortness of breath and weight gain. He has had this same issue many times in the past. Patient was given IV Bumex. He received IV labetalol and IV hydralazine. I suspect the patient has been noncompliant with his meds. He is quite hypertensive. He is fluid overloaded and in heart failure. He presents hypoxic. A hospital stay is warranted. He is in no condition to be discharged home. I spoke with him about my findings, I spoke with his significant other on the phone. I did speak with case management, the on-call hospitalist was consulted. Impression & Plan Hypoxia, CHF (congestive heart failure), Hypertensive urgency, Shortness of breath Discharge Plan Visit Data *Final* Discharge Date/Time: 03/08/18 22:33 Chief Complaint: Shortness of Breath/Dyspnea Stated Complaint: SOB, CHEST PAIN ED Provider: Abhilash Fuentes Discharge Problem: Hypoxia, CHF (congestive heart failure), Hypertensive urgency, Shortness of breath Patient Disposition: Admitted As Inpatient Discharge Instructions Interventions: ED Discharge Assessment Last Done: 03/08/18 22:33 The barbieibe's documentation has been prepared under my direction and personally reviewed by me in its entirety. I confirm that the note above accurately reflects all work, treatment, procedures, and medical decision making performed by me.
[2018-03-09] MEDS: INSULIN GLARGINE SOLOSTAR 100 UNITS/ML 3 ML PEN SC SCH ×3 (02:24→20:13)
[2018-03-09] MEDS: TIOTROPIUM BROMIDE 5 PUFF/90 MCG INH INH SCH (07:57)
[2018-03-09] MEDS: SPIRONOLACTONE 25 MG TAB PO SCH ×2 (07:57→15:59)
[2018-03-09] MEDS: POTASSIUM CHLORIDE 20 MEQ TABCR PO SCH (07:57)
[2018-03-09] MEDS: ASPIRIN 81 MG ECTAB PO SCH (07:57)
[2018-03-09] MEDS: SACUBITRIL-VALSARTAN 24-26 MG TAB PO SCH ×2 (07:57→20:07)
[2018-03-09] MEDS: HEPARIN SOD 5,000 UNIT/0.5 ML VIAL SQ SCH ×2 (07:58→20:07)
[2018-03-09] MEDS: FUROSEMIDE 40 MG in SYRINGE 0 ML IV SCH ×2 (07:58→16:00)
[2018-03-09 08:40] LABS: Basophils # (auto) 0.01 K/uL (0-0.2); Basophils % (auto) 0.1 %; Eosinophils # (auto) 0.13 K/uL (0-0.5); Eosinophils % (auto) 1.4 %; Hematocrit (blood only) 42.1 % (42-52); Hemoglobin 14.3 g/dL (14.0-18.0); Immature Granulocytes # (auto) 0.05 K/uL (0.00-0.02); Immature Granulocytes % (auto) 0.5 %; Lymphocytes # (auto) 1.96 K/uL (1.2-3.4); Mean Corpuscular Volume 85.4 fL (80-100); Mean Platelet Volume 10.1 fL (7.4-10.4); Monocytes # (auto) 0.59 K/uL (0.11-0.59); Monocytes % (auto) 6.3 %; Neutrophils % (auto) 70.7 %; Platelet Count 141 K/uL (130-400); RDW Coefficient of Variation 14.4 % (11.5-14.5); RDW Standard Deviation 44.8 fL (36.4-46.3); Red Blood Count 4.93 M/uL (4.7-6.1); White Blood Count 9.34 K/uL (4.8-10.8)
[2018-03-09] MEDS: INSULIN ASPART 100 UNITS/ML 3 ML PEN SC SCH ×4 (08:40→20:11)
[2018-03-09] MEDS ORDERED: FUROSEMIDE 40 MG/4 ML VIAL IV SCH (09:00)
[2018-03-09 09:12] LABS: BUN Creatinine Ratio 14.2 (10-20); Calcium 8.4 mg/dl (8.5-10.1); Creatinine Clr Calc Pharmacy 171.6 ml/min; Est GFR (African American) 124.2; Est GFR (Non-African American) 107.2; Potassium 3.9 mmol/L (3.5-5.1)
[2018-03-09 09:43] LABS: Estimated Average Glucose 171 mg/dl; Hemoglobin A1C 7.6 % (4.5-5.6)
[2018-03-09] MEDS: PANTOprazole 40 MG in SYRINGE 0 ML IV SCH (10:29)
--- NOTE | 2018-03-09 15:21 | Hospitalist Progress Note ---
Date of Service March 09, 2018 Assessment & Plan (1) Acute exacerbation of CHF (congestive heart failure): Acute on chronic systolic heart failure likely related to medication non- compliance. CXR on admission indicates volume overload/congestive change, similar to previous admission. - Patient on nasal cannula 2L on admission. Not on oxygen at home. - Continue furosemide 40mg IV BID - On metolazone at home - Daily weights, I&Os. - Fluid restriction, low salt diet Hemoptysis: - Possibly due to airway edema from CHF - Diuresis and monitor - Normal H/H - Follows with pulm as outpatient, was meant to have scan in Mar 2018 (2) Hypertension: - Has well documented resistant HTN. - Received labetalol, hydralazine, IV bumex in ED. - Pt regularly sits at 160s/110s - Continue Entresto - Lasix - Hydralazine PRN (3) COPD (chronic obstructive pulmonary disease): No wheezing on exam, no other signs/symptoms concerning for COPD exacerbation. - Uses incruse ellipta at home, will start spiriva while inpatient (4) CHF (congestive heart failure): (5) DM type 2 (diabetes mellitus, type 2): Patient requires high doses of 50/50 insulin at home, but per last visit, insulin requirements were significantly decreased likely related to controlled diet. - Will start ISS and glargine 15 BID per previous visit. Adjust prn (6) Obstructive sleep apnea: Declines wearing CPAP or BiPap from prior outpatient notes. - Outpatient follow up (7) Learning difficulties: - Per previous admission: This makes some of his medical issues difficult to manage as it seems that he has trouble understanding the cause/effect relationship of not taking his medications. [facility] lives at [facility] living. - Consider discussing with CM if any resources are available to assist patient (8) DVT prophylaxis: Heparin BID Subjective 42yo M w/ hx of CHF who presents with CHF exacerbation. With mild hemoptysis and shortness of breath. Reports no fevers/chills, chest pain, abdominal pain, nausea, or vomiting. Physical Exam 2 Vital Signs (Past 24 Hours): Last Vital Signs Temp 36.6 C 03/09/18 08:43 Pulse 103 H 03/09/18 10:00 Resp 19 03/09/18 08:43 BP 173/99 H 03/09/18 10:00 Pulse Ox 96 03/09/18 08:43 Constitutional: WD/WN, vitals as above + morbidly obese Eyes: PERRL, conjunctivae normal, anicteric sclerae ENMT: external ear and nose normal, oropharynx normal Respiratory: normal respiratory effort; no respiratory distress, no labored breathing and does not use accessory muscles Auscultation: + crackles (faint , bibasilar) Cardiovascular: Rate/Rhythm: regular rate and regular rhythm Heart Sounds: normal S1 and normal S2; no murmur Vessels: normal peripheral pulses Extremities: + edema (1-2+ bilateral from ankle to knee) Gastrointestinal (Abdomen): Inspection/Auscultation: + abdomen distended Percussion/Palpation: + abdomen tender (epigastric) Skin: + turgor decreased Neurologic: PERRL, EOMI, accommodation nl, no face palsy, no dysarthria Psychiatric: Orientation: alert and oriented x 3 Insight: + limited insight _ (1) Acute exacerbation of CHF (congestive heart failure) Heart failure type: combined systolic and diastolic Qualified Code(s): I50.43 - Acute on chronic combined systolic (congestive) and diastolic ( congestive) heart failure (2) Hypertension Hypertension type: essential hypertension Qualified Code(s): I10 - Essential (primary) hypertension (3) COPD (chronic obstructive pulmonary disease) COPD type: unspecified COPD Chronic bronchitis type: Emphysema type: Qualified Code(s): J44.9 - Chronic obstructive pulmonary disease, unspecified (4) CHF (congestive heart failure) Heart failure chronicity: acute on chronic Heart failure type: unspecified Qualified Code(s): I50.9 - Heart failure, unspecified (5) DM type 2 (diabetes mellitus, type 2) 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
[2018-03-09] MEDS ORDERED: IBUPROFEN 200 MG TAB PO STA (15:34)
[2018-03-10] MEDS: SACUBITRIL-VALSARTAN 24-26 MG TAB PO SCH (07:44)
[2018-03-10] MEDS: TIOTROPIUM BROMIDE 5 PUFF/90 MCG INH INH SCH (07:44)
[2018-03-10] MEDS: ASPIRIN 81 MG ECTAB PO SCH (07:44)
[2018-03-10] MEDS: FUROSEMIDE 40 MG in SYRINGE 0 ML IV SCH (07:44)
[2018-03-10] MEDS: POTASSIUM CHLORIDE 20 MEQ TABCR PO SCH (07:44)
[2018-03-10] MEDS: SPIRONOLACTONE 25 MG TAB PO SCH (07:44)
[2018-03-10 07:54] VITALS: PULSE 91; TEMP 97.9; O2SAT 96
[2018-03-10 08:12] LABS: Potassium 4.1 mmol/L (3.5-5.1)
[2018-03-10 08:13] LABS: BUN Creatinine Ratio 16.3 (10-20); Calcium 8.2 mg/dl (8.5-10.1); Creatinine Clr Calc Pharmacy 145.2 ml/min; Est GFR (African American) 109.2; Est GFR (Non-African American) 94.2
[2018-03-10] MEDS: INSULIN ASPART 100 UNITS/ML 3 ML PEN SC SCH ×2 (09:06→12:38)
[2018-03-10] MEDS: INSULIN GLARGINE SOLOSTAR 100 UNITS/ML 3 ML PEN SC SCH (09:06)
[2018-03-10] MEDS: HEPARIN SOD 5,000 UNIT/0.5 ML VIAL SQ SCH (09:07)
[2018-03-10] MEDS: PANTOprazole 40 MG in SYRINGE 0 ML IV SCH (11:54)
[2018-03-10 13:04] VITALS: BP 135/91
--- NOTE | 2018-03-10 17:23 | Discharge Summary ---
Date of Service March 10, 2018 Admission HPI Per Admitting Provider Patient is a 42 yo morbidly obese man with known CHF, recently discharge who presents to the ER with c/o weight gain since discharge, increasing dyspnea, 1 episode of vomiting, right sided tingling (resolved) and epigastric pain. He does state he has been taking medications as prescribed since his discharge <30 days ago. PMH significant for CHF, chronic respiratory failure, GERD, Resistant HTN, MARIELENA, learning difficulties, preripheral neuropathy, T2DM, nonischemic cardiomyopathy, medication noncompliance, depression, fatty liver. In the ER he was found to have crackles, hypoxia, fluid overload, HTN, and was given labetalol, hydralazine, IV bumex, and started on 2L NC. Pt states he does not wear oxygen at home. Principal Diagnosis CHF exacerbation Discharge Exam Constitutional WD/WN, vitals as above + morbidly obese Eyes PERRL, conjunctivae normal, anicteric sclerae ENMT external ear and nose normal, oropharynx normal Respiratory normal respiratory effort; no respiratory distress, no labored breathing and does not use accessory muscles Auscultation: + crackles (faint, bibasilar) Cardiovascular Rate/Rhythm: regular rate and regular rhythm Heart Sounds: normal S1 and normal S2; no murmur Vessels: normal peripheral pulses Extremities: + edema (1-2+ bilateral from ankle to knee) Gastrointestinal (Abdomen) Inspection/Auscultation: + abdomen distended Percussion/Palpation: + abdomen tender (epigastric) Skin + turgor decreased Neurologic PERRL, EOMI, accommodation nl, no face palsy, no dysarthria Psychiatric Orientation: alert and oriented x 3 Insight: + limited insight Discharge Data Allergies Allergy/AdvReac Type Severity Reaction Status Date / Time ceftriaxone Allergy Severe SHORTNESS Verified 02/06/18 18:39 OF BREATH lidocaine Allergy Severe SHORTNESS Verified 02/06/18 18:39 OF BREATH, diaphoretic, hives procaine Allergy Severe SHORTNESS Verified 02/06/18 18:39 OF BREATH, diaphoretic, hives amoxicillin Allergy Intermediate HIVES/FACIAL Verified 02/06/18 18:39 SWELLING lisinopril Allergy Intermediate HIVES Verified 02/06/18 18:39 albuterol Allergy Mild proair Verified 02/06/18 18:39 "trouble taking breaths" clavulanic acid Allergy Unknown . Verified 02/06/18 18:39 acetaminophen AdvReac Mild NAUSEA Verified 02/06/18 18:39 Consultations 03/08/18 19:49 ED Decision to Admit Stat Hospital Course (1) Acute exacerbation of CHF (congestive heart failure): Acute on chronic systolic heart failure likely related to medication non- compliance vs. high home salt intake. Diuresed well and weight was down to 158 kg on discharge (from 168kg on admission). Baseline weight is likely ~153kg. This is a long-standing issue, but in his defense, he was hypervolemic on prior office visits without significant adjustment of diuretics. - Encouraged low salt intake at home. - Close follow up. - Requested discharge on Sunday due to home situation. Will likely be readmitted soon. (2) Acute and chronic respiratory failure: (3) Hypertension: - Has well documented resistant HTN. - Received labetalol, hydralazine, IV bumex in ED. - Pt regularly sits at 160s/110s - Continue Entresto - Lasix - Hydralazine PRN (4) COPD (chronic obstructive pulmonary disease): No wheezing on exam, no other signs/symptoms concerning for COPD exacerbation. - Uses incruse ellipta at home, will start spiriva while inpatient (5) CHF (congestive heart failure): (6) DM type 2 (diabetes mellitus, type 2): Patient requires high doses of 50/50 insulin at home, but per last visit, insulin requirements were significantly decreased likely related to controlled diet. - Will start ISS and glargine 15 BID per previous visit. Adjust prn (7) Vomiting: (8) Obstructive sleep apnea: Declines wearing CPAP or BiPap from prior outpatient notes. - Outpatient follow up (9) Learning difficulties: - Per previous admission: This makes some of his medical issues difficult to manage as it seems that he has trouble understanding the cause/effect relationship of not taking his medications. Patient lives at long term. - Consider discussing with CM if any resources are available to assist patient (10) Idiopathic peripheral autonomic neuropathy: (11) Abdominal pain: (12) Epigastric pain: (13) Diabetic peripheral neuropathy associated with type 2 diabetes mellitus: Total Time Total Time Spent Total Time Spent (In Minutes): 35 Discharge Plan Discharge Items Patient Disposition: Home - Self-Care Reason For Visit: CHF EXACERBATION Discharge Diagnosis: CHF exacerbation Discharge Goals: Improve function Activity: Resume your previous activity Non-emergency contact: Primary Care Provider and Student Call non-emergency contact if: your symptoms worsen and your temperature is above 100.5 Follow-up/Referrals: George Veronica Jr, MD, [facility] [Physician] - 03/13/18 3:45 pm Olga Banuelos CRNP [Nurse Practitioner] - 03/11/18 3:30 pm Corie Mazariegos PA-C [Physician] - 03/25/18 4:00 pm Diet: Heart Healthy and Low Sodium (2gm) Fluids: 2000ml (8 cups) Addtl Provider Instructions: Mr. Huff, You were admitted to the hospital with a CHF exacerbation. This is caused by eating too much salt and drinking too much water. You were given IV medication in the hospital and much of your water weight was gone by discharge. Your baseline weight on our scales is around 338 lbs. On discharge, you weighed about 350 lbs, but this was already about 20 lbs less than when you came in. Please, take your medications as listed below. You need to take your Lasix 2 times per day and the metolazone on Sunday, Sunday, and Sunday. Please follow up with the doctors listed about to help maintain a healthy weight. Prescriptions: Continue aspirin [Aspirin Low Dose] 81 mg Tablet,Delayed Release (Dr/Ec) 81 mg PO QAM RF: 0 potassium chloride [Klor-Con M20] 20 mEq Tablet,Er Particles/Crystals 20 meq PO QAM RF: 0 metformin 1,000 mg Tablet 1,000 mg PO BIDM RF: 0 esomeprazole magnesium [Nexium] 40 mg Capsule,Delayed Release(Dr/Ec) 40 mg PO QAM RF: 0 insulin lispro protamin-lispro [Humalog Mix 50-50 KwikPen] 100 unit/mL (50-50 ) Insulin Pen 120 unit SUBCUT QPM RF: 0 insulin lispro protamin-lispro [Humalog Mix 50-50 KwikPen] 100 unit/mL (50-50 ) Insulin Pen 135 unit SUBCUT QAM RF: 0 cholecalciferol (vitamin D3) 2,000 unit Tablet 2,000 unit PO BID RF: 0 dulaglutide [Trulicity] 1.5 mg/0.5 mL Pen Injector 1.5 mg subcut WK RF: 0 furosemide 40 mg tablet 80 mg PO BID RF: 0 metolazone 2.5 mg tablet 2.5 mg PO DIRECTED RF: 0 sacubitril-valsartan 97-103 mg Tablet 1 tab PO BID RF: 0 umeclidinium 62.5 mcg/actuation blister with device 2 puff Inhalation DAILY RF: 0 Stand-Alone Forms: [facility] Discharge Orders: Discharge Order (Routine); Ordered 03/10/18 Ordered By: Mynor Hunt Admission Data Admit Date/Time: 03/08/18 21:29 Attending Provider: Mynor Hunt Admit Provider: Mi Rsos Primary Care Provider: Markie Briceno Other Providers: Mynor Hunt Service: Medical Other Interventions: Discharge Summary Assessment (RN) Last Done: 03/10/18 13:03 DC Date/Time DO NOT enter until pt leaves facility: 03/10/18 14:59
== END 2018-03-10 14:59 | disposition home or self-care (01) | DRG 291 ==
LOC: ED 18:04 → 4W 21:29 → SUATTDRO 21:29 → 4W 22:33

== ENCOUNTER 2018-03-25 16:52 | Observation (INO) ==
[2018-03-25 17:41] LABS: HCO3 ABG 25 mmol/L (19-24); Oxygen Saturation ABG 95.1 % (90-95); PCO2 ABG 35 mmHg (35-46); PO2 ABG 72 mm/Hg (80-95); pH ABG 7.46 (7.35-7.45)
[2018-03-25 17:42] LABS: Allen Test Pos (Pos)
--- NOTE | 2018-03-25 18:00 | XRay Report ---
SINGLE VIEW CHEST CLINICAL HISTORY: Dyspnea. FINDINGS: An AP, portable, upright chest radiograph is compared to study dated 03/08/2018 and correlat ed with chest CT dated 01/22/2018. The examination is degraded by portable technique and apical lordo tic positioning. The heart is enlarged. There is mild pulmonary vascular congestion. Bibasilar atele ctasis is observed. No large pleural effusion or pneumothorax is seen. The bony thorax is grossly int act. IMPRESSION: Cardiomegaly with evidence of mild congestive failure. Electronically signed by: Abhilash Carpio M.D. 03/25/2018 5:58 PM
[2018-03-25] MEDS ORDERED: FUROSEMIDE 40 MG/4 ML VIAL IV STA (18:07)
[2018-03-25 18:58] LABS: Appearance Urine Clear (Clear); Bacteria Urine Automated Negative (Negative); Bilirubin Urine Negative (Negative); Cast Urine Automated 0 /lpf (0-5); Color Urine Yellow; Epithelial Cell Urine Auto >30 /lpf (0-5); Glucose Urine UA Negative (Negative); Ketones Urine Negative (Negative); Leukocyte Esterase Urine Negative (Negative); Nitrite Urine Negative (Negative); Protein Urine 1+ (Negative); Specific Gravity Urine 1.022 (1.000-1.030); Urobilinogen Urine Negative (Negative)
[2018-03-25 19:18] LABS: Basophils # (auto) 0.03 K/uL (0-0.2); Basophils % (auto) 0.3 %; Eosinophils # (auto) 0.24 K/uL (0-0.5); Eosinophils % (auto) 2.3 %; Hematocrit (blood only) 42.2 % (42-52); Hemoglobin 14.5 g/dL (14.0-18.0); Immature Granulocytes # (auto) 0.03 K/uL (0.00-0.02); Immature Granulocytes % (auto) 0.3 %; Lymphocytes # (auto) 2.52 K/uL (1.2-3.4); Mean Corpuscular Hgb Conc 34.4 g/dL (32-36); Mean Corpuscular Volume 84.6 fL (80-100); Mean Platelet Volume 9.9 fL (7.4-10.4); Monocytes % (auto) 5.7 %; Neutrophils # (auto) 7.09 K/uL (1.4-6.5); Neutrophils % (auto) 67.4 %; Platelet Count 157 K/uL (130-400); RDW Coefficient of Variation 14.5 % (11.5-14.5); RDW Standard Deviation 44.7 fL (36.4-46.3); Red Blood Count 4.99 M/uL (4.7-6.1); White Blood Count 10.51 K/uL (4.8-10.8)
[2018-03-25 19:43] LABS: Alanine Aminotransferase 28 U/L (12-78); Albumin Level 3.4 gm/dl (3.4-5.0); Aspartate Aminotransferase 19 U/L (15-37); BUN Creatinine Ratio 14.1 (10-20); Blood Urea Nitrogen 12 mg/dl (7-18); Calcium 8.7 mg/dl (8.5-10.1); Carbon Dioxide 24 mmol/L (21-32); Chloride 107 mmol/L (98-107); Est GFR (African American) 125.4; Est GFR (Non-African American) 108.2; Glucose 105 mg/dl (70-99); Magnesium 1.8 mg/dl (1.8-2.4); Sodium 140 mmol/L (136-145)
[2018-03-25 19:54] LABS: Alkaline Phosphatase 86 U/L (45-117); Bilirubin,Total 0.7 mg/dl (0.2-1); Globulin 3.4 gm/dl (2.5-4.0); NT Pro B Type Natriuretic Pept 2413 pg/ml (0-450); Total Protein 6.8 gm/dl (6.4-8.2); Troponin I 0.024 ng/ml (0-0.045)
[2018-03-25] MEDS ORDERED: HydrALAZINE HCL 20 MG/ML VIAL IV STA (20:11)
--- NOTE | 2018-03-25 21:36 | CT Scan Report ---
CT SCAN OF THE BRAIN WITHOUT IV CONTRAST CLINICAL HISTORY: Headache. COMPARISON STUDY: CT and MRI of the brain dated 02/09/2018. TECHNIQUE: Unenhanced axial CT scan of the brain is performed from the vertex to the skull base. A d ose lowering technique was utilized adhering to the principles of ALARA. CT DOSE: 773.57 mGy.cm FINDINGS: Brain parenchyma: Foci of low-attenuation within the periventricular white matter are similar to prev ious. There is no hemorrhage, mass effect, or evidence of acute territorial ischemia by CT criteria. Adams-white matter differentiation is preserved. No extra-axial fluid collection is seen. Ventricles, sulci, cisterns: Normal in configuration. Intracranial vasculature: The visualized intracranial vasculature at the skull base is normal in appe arance. Calvarium: Unremarkable. Sinuses and mastoids: The visualized paranasal sinuses are clear. The mastoid air cells are well pneu matized. Orbits: The bony orbits are grossly intact. IMPRESSION: No acute intracranial abnormality. Electronically signed by: Abhilash Carpio M.D. 03/25/2018 9:35 PM
[2018-03-26] MEDS ORDERED: GLUCOSE 10 TABS/TUBE PO PRN
[2018-03-26] MEDS ORDERED: GLUCOSE 40% GEL 15 GM TUBE PO PRN
[2018-03-26] MEDS ORDERED: HydrALAZINE HCL 20 MG/ML VIAL IV PRN
[2018-03-26] MEDS ORDERED: ONDANSETRON INJ 2 MG/ML 2 ML VIAL IV PRN
[2018-03-26] MEDS ORDERED: ACETAMINOPHEN 325 MG TAB PO PRN
[2018-03-26] MEDS ORDERED: SACUBITRIL VALSARTAN PO SCH
[2018-03-26] MEDS ORDERED: CARBOHYDRATES FOR HYPOGLYCEMIA PO PRN
[2018-03-26] MEDS ORDERED: FUROSEMIDE 40 MG/4 ML VIAL IV SCH
[2018-03-26] MEDS ORDERED: DEXTROSE 50% 50 ML SYRINGE IV PRN
[2018-03-26] MEDS ORDERED: GLUCAGON FOR INJ 1 MG VIAL SQ PRN
[2018-03-26] MEDS ORDERED: PATIENT'S HEIGHT AND/OR WEIGHT NEEDED SCH (00:15)
--- NOTE | 2018-03-26 00:21 | History & Physical Report ---
Date of Service March 25, 2018 Assessment & Plan (1) Hypertension: Patient with markedly elevated blood pressure in clinic today as well as headache. He was sent to the ER for further workup and treatment. EKG with no STEMI, troponin detectable at 0.024 which is near his baseline level. CT head negative. Physical exam non-focal. Patient with history of medication non- adherance. -Admit to PCU -Hydralazine 10mg IV q 4 hours PRN -Continue Hydralazine 50mg po TID -Continue Metoprolol 150mg po BID -Continue Sacubitril-Valsartan 1.5mg po BID -Will hold isosorbide mononitrate as patient thinks he may have had a reaction to it -Start isosorbide dinitrate 20mg po TID -Lasix 80mg IV BID -Metolazone 2.5mg po q M/W/F -Monitor blood pressure - if no improvement with PO medications will consider MICU transfer with Nicardipine gtt (2) Headache: Patient with left sided headache, tenderness with palpation of the left side of the face. Difficult to ascertain swelling due to body habitus. - CT soft tissue neck with contrast to assess for possible parotitis, stone, abscess or other etiology of pain -Tylenol as needed for pain (3) CHF (congestive heart failure): Patient with combined systolic, diastolic dysfunction secondary to NICM, EF 35-40% per echo 08/2017, LV hypokinesis, RXV=221. He follows with Dr. Veronica. Has been complainin of weight gain, orthopnea, edema, SOB. Patient does not appear to be grossly volume overloaded on exam, however, difficult secondary to body habitus. No respiratory distress. -Admit to PCU -Lasix 80 mg IV BID -Metolazone as directed q M/W/F -BMP BID to assess electrolytes during diuresis -Daily weights -Strict intake/output measurement -Low sodium diet -Continue Metoprolol 150mg po BID -Continue Sacubitril-Valsartan 1.5tabls BID -Continue Hydralazine 50mg po TID -Start Isosorbide dinitrate 20mg po TID and increase as tolerated (4) DM type 2 (diabetes mellitus, type 2): Patient discharged on Humalog Mix 50-50 120u qPM and 135u qAM. Glucose= 122. Last HgAIC=7.6 03/09/18 -Start Lantus 15u BID and ISS and adjust as needed -Continue Trulicity (5) COPD (chronic obstructive pulmonary disease): No respiratory distress. No wheezing on exam -Continue umeclidiunium (6) GERD (gastroesophageal reflux disease): Continue Nexium (7) Learning disability: Noted F/E/N - Heplock. Monitor electrolytes and replete as needed. Low Na, CC diet as tolerated ppx - Lovenox. Continue Nexium Code - Full per discussion with patient Admit to 219 History of Present Illness Chief Complaint: Hypertension Primary Care Provider: Bertrand Briceno MD Mr. 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 Patient was sent by Heart Failure clinic for elevated blood pressures in the office - 220/140. He has also been complaining of a headache which prompted his referral to the ER. Patient's headache has been ongoing for approximately 1.5 weeks. It is located on the left side of his face and ear. Pain is severe. He states that his vision is blurry at times and his hearing is diminished in his left ear. He denies numbness, tingling or weakness. Denies fevers, chills, neck stiffness. Patient also complaining of progressive BRISCOE and decreased exercise tolerance over the past few weeks as well as orthopnea and LE edema, R>L. He also complains of intermittent sharp chest discomfort. His weight on discharge from his last hospital stay was 158.7kg (dry weight noted to be around 153 kg). His weight in clinic today was 165kg Patient follows with Dr. Veronica. He was recently seen in clinic last week. His Metoprolol was increased to 150mg po BID at that time. He was also started on Hydralazine 50mg po TID and Isosorbide mononitrite 60mg po BID. He was referred to EP for possible placement of BiV- AICD. Patient is slightly confused about his medications. He says that he has not been taking the Isosorbide moninitrite as it makes him feel confused and "like a zombie", and that his head is swimming. Patient hypertensive upon arrival to the ER at 204/133. He was complaining of headache. ER Course: Lasix 40mg IV, Hydralazine 10mg IV Allergies Allergy/AdvReac Type Severity Reaction Status Date / Time ceftriaxone Allergy Severe SHORTNESS Verified 03/25/18 18:18 OF BREATH lidocaine Allergy Severe SHORTNESS Verified 03/25/18 18:18 OF BREATH, diaphoretic, hives procaine Allergy Severe SHORTNESS Verified 03/25/18 18:18 OF BREATH, diaphoretic, hives amoxicillin Allergy Intermediate HIVES/FACIAL Verified 03/25/18 18:18 SWELLING lisinopril Allergy Intermediate HIVES Verified 03/25/18 18:18 albuterol Allergy Mild proair Verified 03/25/18 18:18 "trouble taking breaths" clavulanic acid Allergy Unknown . Verified 03/25/18 18:18 acetaminophen AdvReac Mild NAUSEA Verified 03/25/18 18:18 Home Medications Home Medications Medication Instructions Recorded Confirmed Type aspirin [Aspirin Low Dose] 81 mg PO QAM 11/28/17 03/25/18 History cholecalciferol (vitamin D3) 2,000 unit PO BID 11/28/17 03/25/18 History dulaglutide [Trulicity] 1.5 mg SUBCUT WK 11/28/17 03/25/18 History esomeprazole magnesium [Nexium] 40 mg PO QAM 11/28/17 03/25/18 History insulin lispro protamin-lispro 125 unit SUBCUT QPM 11/28/17 03/25/18 History [Humalog Mix 50-50 KwikPen] insulin lispro protamin-lispro 135 unit SUBCUT QAM 11/28/17 03/25/18 History [Humalog Mix 50-50 KwikPen] metformin 1,000 mg PO BIDM 11/28/17 03/25/18 History potassium chloride [Klor-Con M20] 20 meq PO QAM 11/28/17 03/25/18 History furosemide 80 mg PO BID 01/20/18 03/25/18 History metolazone 2.5 mg PO DIRECTED 01/20/18 03/25/18 History sacubitril-valsartan 1.5 tab PO BID 03/08/18 03/25/18 History umeclidinium 2 puff INHALATION DAILY 03/08/18 03/25/18 History hydralazine 50 mg PO TID 03/25/18 03/25/18 History isosorbide mononitrate 60 mg PO BID 03/25/18 03/25/18 History metoprolol succinate 150 mg PO BID 03/25/18 03/25/18 History Past Med/Surg History Medical History COPD (chronic obstructive pulmonary disease) (Chronic) CHF (congestive heart failure) (Chronic) Cognitive impairment DM II (diabetes mellitus, type II), controlled Depression Fatty liver GERD (gastroesophageal reflux disease) HTN (hypertension) Medical non-compliance Morbid obesity with BMI of 50.0-59.9, adult Nonischemic cardiomyopathy EF 30-35% MARIELENA (obstructive sleep apnea) Does not comply with CPAP Surgical History History of cholecystectomy Family History Other No pertinent family history Social History marital status: Current Living Situation: Spouse current occupational status: unemployed Other Information That Helps Us Care for You: No Feels Safe at Home: Yes Safety Concerns: Feels Safe At This Time Smoking Status: Former smoker Tobacco Type: cigarettes Second Hand Exposure: No Hx Alcohol Use: Yes Alcohol type: other Alcohol Intake Frequency: holidays/ special occasions only Hx Substance Use: No Beliefs That Will Affect Care: None Preferred Language: Polish Communication Ability: Effective 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 Review of Systems All systems reviewed & are unremarkable except as noted in HPI & below Physical Exam 2 Vital Signs (Past 24 Hours): Last Vital Signs Temp 36.7 C 03/25/18 16:55 Pulse 105 H 03/25/18 23:00 Resp 18 03/25/18 23:00 BP 171/124 H 03/25/18 23:00 Pulse Ox 95 03/25/18 23:00 Physical Exam: General: patient resting comfortably, NAD, non-toxic in appearance, AA&O x 4 Skin: warm, dry, intact, no rashes or lesions HEENT: NC/AT, PERRL, EOMI, anicteric sclera, conjunctiva without injection, external ear normal to inspection, tenderness with manipulation of left pinna and tragus, TM and ear canals with no evidence of infection, nares patent, moist mucus membranes, dentition intact, no oropharyngeal lesions, neck supple, trachea midline, no LAD, no thyromegaly, JVD difficult to assess. Tenderness with palpation of left face and chin. No mass or fluctuance Heart: +S1/S2, regular, tachycardic, no m/r/g Lungs: equal air entry bilaterally, diminished breath sounds, no rales/rhonchi/ wheezes Abd: +BS, soft, NT/ND, no masses/organomegaly/ascites Ext: warm, 2+ pulses in UE/LE bilaterally, no clubbing/cyanosis or edema Neuro: nonfocal, patient AA&O x 4, speech intact, no facial droop, moving all extremities on command with equal strength 5/5 Results & Data Laboratory Results Lab Results 03/25/18 03/25/18 03/25/18 Range/Units 17:24 18:37 18:58 WBC 10.51 (4.8-10.8) K/uL RBC 4.99 (4.7-6.1) M/uL Hgb 14.5 (14.0-18.0) g/dL Hct 42.2 (42-52) % MCV 84.6 (80-100) fL MCH 29.1 (25-34) pg MCHC 34.4 (32-36) g/dL RDW Std Deviation 44.7 (36.4-46.3) fL RDW Coeff of Zoltan 14.5 (11.5-14.5) % Plt Count 157 (130-400) K/uL MPV 9.9 (7.4-10.4) fL Immature Gran % (Auto) 0.3 % Neut % (Auto) 67.4 % Lymph % (Auto) 24.0 % [place] % (Auto) 5.7 % Eos % (Auto) 2.3 % Baso % (Auto) 0.3 % Immature Gran # (Auto) 0.03 H (0.00-0.02) K/uL Neut # (Auto) 7.09 H (1.4-6.5) K/uL Lymph # (Auto) 2.52 (1.2-3.4) K/uL [place] # (Auto) 0.60 H (0.11-0.59) K/uL Eos # (Auto) 0.24 (0-0.5) K/uL Baso # (Auto) 0.03 (0-0.2) K/uL ABG pH 7.46 H (7.35-7.45) ABG pCO2 35 (35-46) mmHg ABG pO2 72 L (80-95) mm/Hg ABG HCO3 25 H (19-24) mmol/L ABG O2 Saturation 95.1 H (90-95) % ABG Base Excess 1.2 (-9-1.8) mEq/L Ankur Test Pos (Pos) Barometric Pressure 737.0 mm/Hg Oxygen Given ROOM AIR Sodium (136-145) mmol/L Potassium (3.5-5.1) mmol/L Chloride (98-107) mmol/L Carbon Dioxide (21-32) mmol/L Anion Gap (3-11) BUN (7-18) mg/dl Creatinine (0.6-1.4) mg/dl Est Cr Clr Drug Dosing Est GFR ( Amer) Est GFR (Non-Af Amer) BUN/Creatinine Ratio (10-20) Glucose (70-99) mg/dl POC Glucose (70-99) Calcium (8.5-10.1) mg/dl Magnesium (1.8-2.4) mg/dl Total Bilirubin (0.2-1) mg/dl AST (15-37) U/L ALT (12-78) U/L Alkaline Phosphatase (45-117) U/L Troponin I (0-0.045) ng/ml NT-Pro-B Natriuret Pep (0-450) pg/ml Total Protein (6.4-8.2) gm/dl Albumin (3.4-5.0) gm/dl Globulin (2.5-4.0) gm/dl Albumin/Globulin Ratio (0.9-2) Lipase (73-393) U/L TSH (0.300-4.500) uIu/ml Urine Color Yellow Urine Appearance Clear (Clear) Urine pH 6.0 (4.5-7.5) Ur Specific [place] 1.022 (1.000-1.030) Urine Protein 1+ H (Negative) Urine Glucose (UA) Negative (Negative) Urine Ketones Negative (Negative) Urine Blood Negative (Negative) Urine Nitrite Negative (Negative) Urine Bilirubin Negative (Negative) Urine Urobilinogen Negative (Negative) Ur Leukocyte Esterase Negative (Negative) Urine WBC (Auto) 1-5 (0-5) /hpf Urine RBC (Auto) 0-4 (0-4) /hpf U Hyaline Cast (Auto) 0 (0-5) /lpf U Epithel Cells (Auto) >30 H (0-5) /lpf Urine Bacteria (Auto) Negative (Negative) 03/25/18 03/25/18 03/26/18 Range/Units 18:58 23:53 00:10 WBC (4.8-10.8) K/uL RBC (4.7-6.1) M/uL Hgb (14.0-18.0) g/dL Hct (42-52) % MCV (80-100) fL MCH (25-34) pg MCHC (32-36) g/dL RDW Std Deviation (36.4-46.3) fL RDW Coeff of Zoltan (11.5-14.5) % Plt Count (130-400) K/uL MPV (7.4-10.4) fL Immature Gran % (Auto) % Neut % (Auto) % Lymph % (Auto) % [place] % (Auto) % Eos % (Auto) % Baso % (Auto) % Immature Gran # (Auto) (0.00-0.02) K/uL Neut # (Auto) (1.4-6.5) K/uL Lymph # (Auto) (1.2-3.4) K/uL [place] # (Auto) (0.11-0.59) K/uL Eos # (Auto) (0-0.5) K/uL Baso # (Auto) (0-0.2) K/uL ABG pH (7.35-7.45) ABG pCO2 (35-46) mmHg ABG pO2 (80-95) mm/Hg ABG HCO3 (19-24) mmol/L ABG O2 Saturation (90-95) % ABG Base Excess (-9-1.8) mEq/L Ankur Test (Pos) Barometric Pressure mm/Hg Oxygen Given Sodium 140 139 (136-145) mmol/L Potassium 4.0 3.5 (3.5-5.1) mmol/L Chloride 107 106 (98-107) mmol/L Carbon Dioxide 24 26 (21-32) mmol/L Anion Gap 9.0 7.0 (3-11) BUN 12 11 (7-18) mg/dl Creatinine 0.85 0.92 (0.6-1.4) mg/dl Est Cr Clr Drug Dosing Not Reportable 157.2 Est GFR ( Amer) 125.4 119.3 Est GFR (Non-Af Amer) 108.2 102.9 BUN/Creatinine Ratio 14.1 12.2 (10-20) Glucose 105 H 122 H (70-99) mg/dl POC Glucose 110 H (70-99) Calcium 8.7 8.4 L (8.5-10.1) mg/dl Magnesium 1.8 (1.8-2.4) mg/dl Total Bilirubin 0.7 (0.2-1) mg/dl AST 19 (15-37) U/L ALT 28 (12-78) U/L Alkaline Phosphatase 86 (45-117) U/L Troponin I 0.024 (0-0.045) ng/ml NT-Pro-B Natriuret Pep 2413 H (0-450) pg/ml Total Protein 6.8 (6.4-8.2) gm/dl Albumin 3.4 (3.4-5.0) gm/dl Globulin 3.4 (2.5-4.0) gm/dl Albumin/Globulin Ratio 1.0 (0.9-2) Lipase 113 (73-393) U/L TSH 1.370 (0.300-4.500) uIu/ml Urine Color Urine Appearance (Clear) Urine pH (4.5-7.5) Ur Specific [place] (1.000-1.030) Urine Protein (Negative) Urine Glucose (UA) (Negative) Urine Ketones (Negative) Urine Blood (Negative) Urine Nitrite (Negative) Urine Bilirubin (Negative) Urine Urobilinogen (Negative) Ur Leukocyte Esterase (Negative) Urine WBC (Auto) (0-5) /hpf Urine RBC (Auto) (0-4) /hpf U Hyaline Cast (Auto) (0-5) /lpf U Epithel Cells (Auto) (0-5) /lpf Urine Bacteria (Auto) (Negative) Diagnostic Findings SINGLE VIEW CHEST CLINICAL HISTORY: Dyspnea. FINDINGS: An AP, portable, upright chest radiograph is compared to study dated and correlated with chest CT dated 01/22/2018. The examination is degraded by portable technique and apical lordotic positioning. The heart is enlarged. There is mild pulmonary vascular congestion. Bibasilar atelectasis is observed. No large pleural effusion or pneumothorax is seen. The bony thorax is grossly intact. IMPRESSION: Cardiomegaly with evidence of mild congestive failure. Electronically signed by: Abhilash Carpio M.D. 03/25/2018 5:[address] SCAN OF THE BRAIN WITHOUT IV CONTRAST CLINICAL HISTORY: Headache. COMPARISON STUDY: CT and MRI of the brain dated 02/09/2018. TECHNIQUE: Unenhanced axial CT scan of the brain is performed from the vertex to the skull base. A dose lowering technique was utilized adhering to the principles of ALARA. CT DOSE: 773.57 mGy.cm FINDINGS: Brain parenchyma: Foci of low-attenuation within the periventricular white matter are similar to previous. There is no hemorrhage, mass effect, or evidence of acute territorial ischemia by CT criteria. Adams-white matter differentiation is preserved. No extra-axial fluid collection is seen. Ventricles, sulci, cisterns: Normal in configuration. Intracranial vasculature: The visualized intracranial vasculature at the skull base is normal in appearance. Calvarium: Unremarkable. Sinuses and mastoids: The visualized paranasal sinuses are clear. The mastoid air cells are well pneumatized. Orbits: The bony orbits are grossly intact. IMPRESSION: No acute intracranial abnormality. Electronically signed by: Abhilash Carpio M.D. 03/25/2018 9:35 PM Dictated: 03/25/182131 Transcribed: 03/25/182131 ECG Additional Comments: The study shows sinus tachycardia at 104bpm, HE=111, QRS= 100, OSn=327, non-specific t-wave abnormalites in lateral leads Code Status & VTE Plan Code Status FULL VTE Prophylaxis Plan VTE Prophylaxis will be ordered: Yes Critical Care Time Critical Care Time: No _ (1) Hypertension Hypertension type: essential hypertension Qualified Code(s): I10 - Essential (primary) hypertension (2) Headache Headache chronicity pattern: unspecified pattern Headache type: unspecified Intractability: not intractable Qualified Code(s): R51 - Headache (3) CHF (congestive heart failure) Heart failure chronicity: acute on chronic Heart failure type: combined systolic and diastolic Qualified Code(s): I50.43 - Acute on chronic combined systolic (congestive) and diastolic (congestive) heart failure (4) DM type 2 (diabetes mellitus, type 2) Diabetes mellitus intermediate manager insulin use: with fci use Diabetes mellitus complication status: with circulatory complication Diabetes mellitus complication detail: with other circulatory complications Diabetic retinopathy severity: Proliferative retinopathy type: Diabetes mellitus macular edema: Laterality: Chronic kidney disease stage: Qualified Code(s): E11.59 - Type 2 diabetes mellitus with other circulatory complications; Z79.4 - group home (current) use of insulin (5) COPD (chronic obstructive pulmonary disease) COPD type: unspecified COPD Chronic bronchitis type: Emphysema type: Qualified Code(s): J44.9 - Chronic obstructive pulmonary disease, unspecified (6) GERD (gastroesophageal reflux disease) Esophagitis presence: without esophagitis Qualified Code(s): K21.9 - Gastro- esophageal reflux disease without esophagitis
[2018-03-26 00:45] LABS: BUN Creatinine Ratio 12.2 (10-20); Calcium 8.4 mg/dl (8.5-10.1); Creatinine Clr Calc Pharmacy 157.2 ml/min; Est GFR (African American) 119.3; Est GFR (Non-African American) 102.9; Potassium 3.5 mmol/L (3.5-5.1)
[2018-03-26] MEDS: FUROSEMIDE 80 MG in SYRINGE 0 ML IV SCH ×3 (00:51→19:30)
[2018-03-26] MEDS: METOPROLOL SUCC 50MG EXT REL TAB PO SCH ×3 (00:51→19:29)
[2018-03-26] MEDS ORDERED: DiphenhydrAMINE HCL 50 MG/ML VIAL IV STA (00:54)
[2018-03-26 01:23] LABS: Troponin I 0.025 ng/ml (0-0.045)
[2018-03-26 01:27] LABS: Prothrombin Time 10.3 Seconds (9.0-12.0)
[2018-03-26] MEDS ORDERED: OPTIRAY 320 125ml IV PRN (01:40)
[2018-03-26 06:25] LABS: Basophils # (auto) 0.02 K/uL (0-0.2); Basophils % (auto) 0.2 %; Eosinophils # (auto) 0.17 K/uL (0-0.5); Eosinophils % (auto) 1.8 %; Hematocrit (blood only) 44.5 % (42-52); Hemoglobin 15.5 g/dL (14.0-18.0); Immature Granulocytes # (auto) 0.02 K/uL (0.00-0.02); Immature Granulocytes % (auto) 0.2 %; Lymphocytes # (auto) 1.84 K/uL (1.2-3.4); Lymphocytes % (auto) 19.1 %; Mean Corpuscular Hgb Conc 34.8 g/dL (32-36); Mean Corpuscular Volume 83.8 fL (80-100); Mean Platelet Volume 10.2 fL (7.4-10.4); Monocytes # (auto) 0.66 K/uL (0.11-0.59); Monocytes % (auto) 6.9 %; Neutrophils % (auto) 71.8 %; Platelet Count 166 K/uL (130-400); RDW Coefficient of Variation 14.7 % (11.5-14.5); RDW Standard Deviation 44.8 fL (36.4-46.3); Red Blood Count 5.31 M/uL (4.7-6.1); White Blood Count 9.61 K/uL (4.8-10.8)
[2018-03-26 06:56] LABS: BUN Creatinine Ratio 13.7 (10-20); Calcium 8.6 mg/dl (8.5-10.1); Creatinine Clr Calc Pharmacy 164.3 ml/min; Est GFR (African American) 123.7; Est GFR (Non-African American) 106.7; Potassium 3.4 mmol/L (3.5-5.1)
--- NOTE | 2018-03-26 07:30 | CT Scan Report ---
CT soft tissue neck w con HISTORY: swelling, pain of left face TECHNIQUE: Multiaxial CT images of the neck were performed following the use of intravenous contrast. COMPARISON STUDY: Neck CTA 1915 7378. FINDINGS: The visualized brain parenchyma and orbits are unremarkable. The lung apices are clear. No fractures within the visualized osseous structures. The paranasal sinuses and mastoid air cells are c lear. The major mucosal airway surfaces are intact. The epiglottis and prevertebral soft tissues are normal in thickness. The parotid and submandibular glands enhance symmetrically. No cervical lymphade nopathy. Normal thyroid gland. No significant stenosis within the major cervical vessels. IMPRESSION: No significant abnormality within the neck. Electronically signed by: Andrea Bear M.D. 03/26/2018 7:29 AM
[2018-03-26] MEDS: HydrALAZINE TAB 50 MG TAB PO SCH ×3 (08:14→19:30)
[2018-03-26] MEDS: ISOSORBIDE DINITRATE 20 MG TAB PO SCH ×2 (08:14→11:13)
[2018-03-26] MEDS: CHOLECALCIFEROL 1,000 UNITS TAB PO SCH ×2 (08:14→19:30)
[2018-03-26] MEDS: SACUBITRIL-VALSARTAN 24-26 MG TAB PO SCH ×2 (08:14→19:29)
[2018-03-26] MEDS: POTASSIUM CHLORIDE 20 MEQ TABCR PO SCH (08:14)
[2018-03-26] MEDS: SACUBITRIL-VALSARTAN 49/51 MG TAB PO SCH ×2 (08:14→19:29)
[2018-03-26] MEDS: PANTOprazole 40 MG TAB PO SCH (08:15)
[2018-03-26] MEDS: INSULIN GLARGINE SOLOSTAR 100 UNITS/ML 3 ML PEN SC SCH ×2 (08:15→21:01)
[2018-03-26] MEDS: INCRUSE ELLIPTA~ORDER AWAITING ACTION SCH ×3 (08:19→23:49)
[2018-03-26] MEDS: TRULICITY~ORDER AWAITING ACTION SCH ×3 (08:19→23:50)
[2018-03-26] MEDS: INSULIN ASPART 100 UNITS/ML 3 ML PEN SC SCH ×4 (10:36→21:01)
--- NOTE | 2018-03-26 11:11 | Nephrology Consultation ---
Date of Consultation March 26, 2018 Assessment & Plan (1) Hypertension: -Resume home medications with monitoring: notable appropriate improvement in BP noted already -Elevated but asymptomatic currently -Document I/O's and maintain net negative fluid balance -High K+ and low sodium diet -Hydralazine 10mg IV q 4 hours PRN -Continue Hydralazine 50mg po TID -Continue Metoprolol 150mg po BID -Continue Sacubitril-Valsartan 1.5mg po BID -Resume Imdur 60 mg BID -Lasix 80mg IV BID -Metolazone 2.5 mg MWF (2) CHF (congestive heart failure): -Weight has increased from ~152 to 160 kg since last admission -Document I/O's + daily AM weight -Goal net negative fluid balance of approximately 1+ L/day -Monitor metabolic profile daily -Cardiology CHF consult for disposition planning (3) DM type 2 (diabetes mellitus, type 2): History of Present Illness Reason for Consultation: Accelerated hypertension Requesting Physician: Shemar Sky Attending Physician: Shemar Sky History of Present Illness Mr. Alok Huff is a morbidly obese 41-year-old male with non-ischemic cardiomyopathy, severe MARIELENA, diabetes mellitus and resistant hypertension. He has uncontrolled diabetes and blood pressure. Medical adherence has been a major barrier to care. Alok previously followed with me in the nephrology clinic until July of 2017. At that time, he was diagnosed with a cardiomyopathy and has followed in the cardiology clinic regularly since. In July, there was some improvement in blood pressure management with transition to a PillPack system. Alok had also started to have some success with a weight loss program. Work up for secondary causes of hypertension has been unrevealing. Alok was admitted yesterday through the ER after being sent from the Heart Failure Clinic due to accelerated hypertension. BP was 206/114 mmHg in the HF clinic. BP remains elevated this morning. Alok reported a mild headache yesterday but feels well this AM. He denies chest pain, palpitations or shortness of breath. In the summer of 2017, he was hospitalized in [place] with accelerated hypertension, near syncope and dyspnea. CT angiography was unremarkable. Echocardiography revealed LV ejection fraction 35-40 percent. Cardiac catheterization did not demonstrate significant coronary artery disease. Since then he has had multiple hospital admissions for congestive heart failure and has been followed closely in the [facility]. TTE in January 2018 demonstrated moderate to severe global LV hypokinesis with an LVEF of 25-30%. Entresto has been titrated to goal dose. He is maintained on metoprolol succinate BID (Dr. Veronica recently asked Alok to increase from 100 mg twice daily to 150 mg twice daily) as well as hydralazine (50 mg TID) and Imdur 60 mg BID. He is on chronic combination diuretic therapy with metolazone (2.5 mg MWF) and furosemide (80 mg BID). He was admitted to [facility] from 03/08-03/10 with accelerated hypertension and exacerbation of heart failure. He was treated with intravenous diuretics, hydralazine, and labetalol. At discharge his medications were not changed from his pre-admission medications. Alok does not demonstrate understanding of his home medication Rx. It does not appear that he adjusted metoprolol as suggested as an outpatient. He also does not demonstrate understanding of his metolazone Rx. Speaking with his pharmacist at [facility] today, it appears that scheduled refills for Entresto and metolazone are past due. Both medications were due to be refilled in early March. The patient opted not to continue on a PillPack system. He receives 30 day supplies on most Rx's. Allergies Allergy/AdvReac Type Severity Reaction Status Date / Time ceftriaxone Allergy Severe SHORTNESS Verified 03/25/18 18:18 OF BREATH lidocaine Allergy Severe SHORTNESS Verified 03/25/18 18:18 OF BREATH, diaphoretic, hives procaine Allergy Severe SHORTNESS Verified 03/25/18 18:18 OF BREATH, diaphoretic, hives amoxicillin Allergy Intermediate HIVES/FACIAL Verified 03/25/18 18:18 SWELLING lisinopril Allergy Intermediate HIVES Verified 03/25/18 18:18 albuterol Allergy Mild proair Verified 03/25/18 18:18 "trouble taking breaths" clavulanic acid Allergy Unknown . Verified 03/25/18 18:18 acetaminophen AdvReac Mild NAUSEA Verified 03/25/18 18:18 Home Medications Home Medications Medication Instructions Recorded Confirmed Type aspirin [Aspirin Low Dose] 81 mg PO QAM 11/28/17 03/25/18 History cholecalciferol (vitamin D3) 2,000 unit PO BID 11/28/17 03/25/18 History dulaglutide [Trulicity] 1.5 mg SUBCUT WK 11/28/17 03/25/18 History esomeprazole magnesium [Nexium] 40 mg PO QAM 11/28/17 03/25/18 History insulin lispro protamin-lispro 125 unit SUBCUT QPM 11/28/17 03/25/18 History [Humalog Mix 50-50 KwikPen] insulin lispro protamin-lispro 135 unit SUBCUT QAM 11/28/17 03/25/18 History [Humalog Mix 50-50 KwikPen] metformin 1,000 mg PO BIDM 11/28/17 03/25/18 History potassium chloride [Klor-Con M20] 20 meq PO QAM 11/28/17 03/25/18 History furosemide 80 mg PO BID 01/20/18 03/25/18 History metolazone 2.5 mg PO DIRECTED 01/20/18 03/25/18 History sacubitril-valsartan 1 tab PO BID 03/08/18 03/26/18 History umeclidinium 1 puff INHALATION DAILY 03/08/18 03/26/18 History hydralazine 50 mg PO TID 03/25/18 03/25/18 History isosorbide mononitrate 60 mg PO BID 03/25/18 03/25/18 History metoprolol succinate 150 mg PO BID 03/25/18 03/25/18 History Patient History Medical History COPD (chronic obstructive pulmonary disease) (Chronic) Cognitive impairment DM II (diabetes mellitus, type II), controlled Depression Fatty liver GERD (gastroesophageal reflux disease) HTN (hypertension) Medical non-compliance Morbid obesity with BMI of 50.0-59.9, adult Nonischemic cardiomyopathy EF 30-35% MARIELENA (obstructive sleep apnea) Does not comply with CPAP Surgical History History of cholecystectomy Family History Other No pertinent family history Social History marital status: Current Living Situation: Spouse current occupational status: unemployed Other Information That Helps Us Care for You: No Feels Safe at Home: Yes Safety Concerns: Feels Safe At This Time Smoking Status: Former smoker Tobacco Type: cigarettes Second Hand Exposure: No Hx Alcohol Use: Yes Alcohol type: other Alcohol Intake Frequency: holidays/ special occasions only Hx Substance Use: No Beliefs That Will Affect Care: None Preferred Language: Kinyarwanda Communication Ability: Effective Bush Regenerator Required: No Review of Systems Constitutional: + weight gain; no weakness Eyes: + dry eyes; no worsening vision Ear, Nose, Mouth, Throat: no tinnitus and no dizziness Respiratory: no cough and no dyspnea Cardiovascular: + edema; no chest pain and no palpitations Gastrointestinal: + early satiety and + nausea; no abdominal pain Genitourinary (Male): no problem reported Musculoskeletal: no problem reported Integumentary: no problem reported Neurologic: no problem reported Psychiatric: no problem reported Hematologic / Lymphatic: no problem reported Physical Exam 2 Vital Signs (Past 24 Hours): Last Vital Signs Temp 36.6 C 03/26/18 07:15 Pulse 84 03/26/18 07:15 Resp 19 03/26/18 07:15 BP 173/132 H 03/26/18 07:15 Pulse Ox 94 03/26/18 07:15 Constitutional: + morbidly obese and + edematous; no acute distress Eyes: no conjunctival abnormality and no scleral abnormality ENMT: Mouth: + poor dentition; oral mucous membranes not dry Neck: normal visual inspection and + thick neck Respiratory: no respiratory distress and no cough Auscultation: lungs clear to auscultation bilaterally Cardiovascular: Rate/Rhythm: regular rate Heart Sounds: normal S1 and normal S2; no murmur Extremities: + pedal edema and + varicosities Musculoskeletal: Extremities: no cyanosis, no clubbing and no petechiae Skin: no rashes, warm and dry Neurologic: Motor/Sensory: no tremor and no asterixis Psychiatric: Affect: euthymic affect Insight: + limited insight Results & Data Laboratory Results Laboratory Results - last 24 hr 03/25/18 03/25/18 03/25/18 17:24 18:37 18:58 WBC 10.51 RBC 4.99 Hgb 14.5 Hct 42.2 MCV 84.6 MCH 29.1 MCHC 34.4 RDW Std Deviation 44.7 RDW Coeff of Zoltan 14.5 Plt Count 157 MPV 9.9 Immature Gran % (Auto) 0.3 Neut % (Auto) 67.4 Lymph % (Auto) 24.0 [place] % (Auto) 5.7 Eos % (Auto) 2.3 Baso % (Auto) 0.3 Immature Gran # (Auto) 0.03 H Neut # (Auto) 7.09 H Lymph # (Auto) 2.52 [place] # (Auto) 0.60 H Eos # (Auto) 0.24 Baso # (Auto) 0.03 PT INR ABG pH 7.46 H ABG pCO2 35 ABG pO2 72 L ABG HCO3 25 H ABG O2 Saturation 95.1 H ABG Base Excess 1.2 Ankur Test Pos Barometric Pressure 737.0 Oxygen Given ROOM AIR Sodium Potassium Chloride Carbon Dioxide Anion Gap BUN Creatinine Est Cr Clr Drug Dosing Est GFR ( Amer) Est GFR (Non-Af Amer) BUN/Creatinine Ratio Glucose POC Glucose Calcium Magnesium Total Bilirubin AST ALT Alkaline Phosphatase Troponin I NT-Pro-B Natriuret Pep Total Protein Albumin Globulin Albumin/Globulin Ratio Lipase TSH Urine Color Yellow Urine Appearance Clear Urine pH 6.0 Ur Specific [place] 1.022 Urine Protein 1+ H Urine Glucose (UA) Negative Urine Ketones Negative Urine Blood Negative Urine Nitrite Negative Urine Bilirubin Negative Urine Urobilinogen Negative Ur Leukocyte Esterase Negative Urine WBC (Auto) 1-5 Urine RBC (Auto) 0-4 U Hyaline Cast (Auto) 0 U Epithel Cells (Auto) >30 H Urine Bacteria (Auto) Negative 03/25/18 03/25/18 03/25/18 18:58 18:58 23:53 WBC RBC Hgb Hct MCV MCH MCHC RDW Std Deviation RDW Coeff of Zoltan Plt Count MPV Immature Gran % (Auto) Neut % (Auto) Lymph % (Auto) [place] % (Auto) Eos % (Auto) Baso % (Auto) Immature Gran # (Auto) Neut # (Auto) Lymph # (Auto) [place] # (Auto) Eos # (Auto) Baso # (Auto) PT 10.3 INR 1.0 ABG pH ABG pCO2 ABG pO2 ABG HCO3 ABG O2 Saturation ABG Base Excess Ankur Test Barometric Pressure Oxygen Given Sodium 140 Potassium 4.0 Chloride 107 Carbon Dioxide 24 Anion Gap 9.0 BUN 12 Creatinine 0.85 Est Cr Clr Drug Dosing Not Reportable Est GFR ( Amer) 125.4 Est GFR (Non-Af Amer) 108.2 BUN/Creatinine Ratio 14.1 Glucose 105 H POC Glucose 110 H Calcium 8.7 Magnesium 1.8 Total Bilirubin 0.7 AST 19 ALT 28 Alkaline Phosphatase 86 Troponin I 0.024 NT-Pro-B Natriuret Pep 2413 H Total Protein 6.8 Albumin 3.4 Globulin 3.4 Albumin/Globulin Ratio 1.0 Lipase 113 TSH 1.370 Urine Color Urine Appearance Urine pH Ur Specific Union Urine Protein Urine Glucose (UA) Urine Ketones Urine Blood Urine Nitrite Urine Bilirubin Urine Urobilinogen Ur Leukocyte Esterase Urine WBC (Auto) Urine RBC (Auto) U Hyaline Cast (Auto) U Epithel Cells (Auto) Urine Bacteria (Auto) 03/26/18 03/26/18 03/26/18 00:10 06:07 06:07 WBC 9.61 RBC 5.31 Hgb 15.5 Hct 44.5 MCV 83.8 MCH 29.2 MCHC 34.8 RDW Std Deviation 44.8 RDW Coeff of Zoltan 14.7 H Plt Count 166 MPV 10.2 Immature Gran % (Auto) 0.2 Neut % (Auto) 71.8 Lymph % (Auto) 19.1 [place] % (Auto) 6.9 Eos % (Auto) 1.8 Baso % (Auto) 0.2 Immature Gran # (Auto) 0.02 Neut # (Auto) 6.90 H Lymph # (Auto) 1.84 [place] # (Auto) 0.66 H Eos # (Auto) 0.17 Baso # (Auto) 0.02 PT INR ABG pH ABG pCO2 ABG pO2 ABG HCO3 ABG O2 Saturation ABG Base Excess Ankur Test Barometric Pressure Oxygen Given Sodium 139 138 Potassium 3.5 3.4 L Chloride 106 105 Carbon Dioxide 26 27 Anion Gap 7.0 6.0 BUN 11 12 Creatinine 0.92 0.88 Est Cr Clr Drug Dosing 157.2 164.3 Est GFR ( Amer) 119.3 123.7 Est GFR (Non-Af Amer) 102.9 106.7 BUN/Creatinine Ratio 12.2 13.7 Glucose 122 H 131 H POC Glucose Calcium 8.4 L 8.6 Magnesium Total Bilirubin AST ALT Alkaline Phosphatase Troponin I 0.025 NT-Pro-B Natriuret Pep Total Protein Albumin Globulin Albumin/Globulin Ratio Lipase TSH Urine Color Urine Appearance Urine pH Ur Specific [place] Urine Protein Urine Glucose (UA) Urine Ketones Urine Blood Urine Nitrite Urine Bilirubin Urine Urobilinogen Ur Leukocyte Esterase Urine WBC (Auto) Urine RBC (Auto) U Hyaline Cast (Auto) U Epithel Cells (Auto) Urine Bacteria (Auto) 03/26/18 03/26/18 07:22 11:20 WBC RBC Hgb Hct MCV MCH MCHC RDW Std Deviation RDW Coeff of Zoltan Plt Count MPV Immature Gran % (Auto) Neut % (Auto) Lymph % (Auto) [place] % (Auto) Eos % (Auto) Baso % (Auto) Immature Gran # (Auto) Neut # (Auto) Lymph # (Auto) [place] # (Auto) Eos # (Auto) Baso # (Auto) PT INR ABG pH ABG pCO2 ABG pO2 ABG HCO3 ABG O2 Saturation ABG Base Excess Ankur Test Barometric Pressure Oxygen Given Sodium Potassium Chloride Carbon Dioxide Anion Gap BUN Creatinine Est Cr Clr Drug Dosing Est GFR ( Amer) Est GFR (Non-Af Amer) BUN/Creatinine Ratio Glucose POC Glucose 130 H 129 H Calcium Magnesium Total Bilirubin AST ALT Alkaline Phosphatase Troponin I NT-Pro-B Natriuret Pep Total Protein Albumin Globulin Albumin/Globulin Ratio Lipase TSH Urine Color Urine Appearance Urine pH Ur Specific [place] Urine Protein Urine Glucose (UA) Urine Ketones Urine Blood Urine Nitrite Urine Bilirubin Urine Urobilinogen Ur Leukocyte Esterase Urine WBC (Auto) Urine RBC (Auto) U Hyaline Cast (Auto) U Epithel Cells (Auto) Urine Bacteria (Auto) _ (1) Hypertension Hypertension type: essential hypertension Qualified Code(s): I10 - Essential (primary) hypertension (2) CHF (congestive heart failure) Heart failure chronicity: acute on chronic Heart failure type: combined systolic and diastolic Qualified Code(s): I50.43 - Acute on chronic combined systolic (congestive) and diastolic (congestive) heart failure (3) DM type 2 (diabetes mellitus, type 2) Diabetes mellitus half-way insulin use: with half-way use Diabetes mellitus complication status: with circulatory complication Diabetes mellitus complication detail: with other circulatory complications Diabetic retinopathy severity: Proliferative retinopathy type: Diabetes mellitus macular edema: Laterality: Chronic kidney disease stage: Qualified Code(s): E11.59 - Type 2 diabetes mellitus with other circulatory complications; Z79.4 - MCC (current) use of insulin
[2018-03-26] MEDS: ENOXAPARIN INJ 40 MG/0.4 ML SYR SQ SCH (11:13)
[2018-03-26] MEDS: ASPIRIN 81 MG ECTAB PO SCH (11:28)
[2018-03-26 12:31] LABS: BUN Creatinine Ratio 13.1 (10-20); Calcium 8.9 mg/dl (8.5-10.1); Est GFR (African American) 102.9; Est GFR (Non-African American) 88.8; Potassium 3.9 mmol/L (3.5-5.1)
--- NOTE | 2018-03-26 16:14 | Emergency Department Note ---
Entered by Wilfredo Cedeno acting as a scribe for History of Present Illness General Chief complaint: Hypertension Stated complaint: hypertension Time Seen by Provider: 03/25/18 16:59 Source: patient History of Present Illness Provider complaint: Hypertension Onset (ago): hour(s) 4 Location: head Severity: similar to prior episodes Pain Consistency: + constant Maximum Pain Intensity: 9 Quality: + burning and + other (Pins and needles) Relieved By: + none Exacerbated By: + eating Associated symptoms: + headaches, + nausea/vomiting (No vomiting), + shortness of breath and + other (Leg swelling, arm pain, leg pain, ) The patient is a 42 year old male who presents to the Emergency Room with complaints of constant hypertension that has been a chronic problem for him for years. His pressure and sugar has been high as of late and today he is complaining of a headache that started about 4 hours ago at 1300. Pt states he has been having frequent headaches since his last admission. No recent trauma or change in the quality. The patient's chronic shortness of breath is also getting worse, to the point where he is having trouble ambulating to and around his house. He also has had sharp pains in his legs along with left arm and bilateral leg burning pains and numbness that has worsened over the past 3 days. Moreover, the patient has been spitting up blood for the past 6 months, and after multiple endoscopy and colonoscopy procedures. He is suppsed to have another procedure this week to evaluate this. He also has not been eating normally because it is making him nauseous, even after completely cutting salt out of his diet. He also has been having symptoms such as having periods of amnesia and periods of having trouble being woken up. He used to be on BiPAP but one night he woke up with it wrapped around his neck so he stopped using it. He states his weight has been fluctuating a lot as of late but he has had no changes in his bowels or urination. He is on 80mg BID of a water pill as well as Metformin for his diabetes and he has not missed any medications. Four months ago he was diagnosed with pneumonia and bronchitis. Home Medications Home Medications Medication Instructions Recorded Confirmed Type aspirin [Aspirin Low Dose] 81 mg PO QAM 11/28/17 03/25/18 History cholecalciferol (vitamin D3) 2,000 unit PO BID 11/28/17 03/25/18 History dulaglutide [Trulicity] 1.5 mg SUBCUT WK 11/28/17 03/25/18 History esomeprazole magnesium [Nexium] 40 mg PO QAM 11/28/17 03/25/18 History insulin lispro protamin-lispro 125 unit SUBCUT QPM 11/28/17 03/25/18 History [Humalog Mix 50-50 KwikPen] insulin lispro protamin-lispro 135 unit SUBCUT QAM 11/28/17 03/25/18 History [Humalog Mix 50-50 KwikPen] metformin 1,000 mg PO BIDM 11/28/17 03/25/18 History potassium chloride [Klor-Con M20] 20 meq PO QAM 11/28/17 03/25/18 History furosemide 80 mg PO BID 01/20/18 03/25/18 History metolazone 2.5 mg PO DIRECTED 01/20/18 03/25/18 History sacubitril-valsartan 1 tab PO BID 03/08/18 03/26/18 History umeclidinium 1 puff INHALATION DAILY 03/08/18 03/26/18 History hydralazine 50 mg PO TID 03/25/18 03/25/18 History isosorbide mononitrate 60 mg PO BID 03/25/18 03/25/18 History metoprolol succinate 150 mg PO BID 03/25/18 03/25/18 History Allergies Allergy/AdvReac Type Severity Reaction Status Date / Time ceftriaxone Allergy Severe SHORTNESS Verified 03/25/18 18:18 OF BREATH lidocaine Allergy Severe SHORTNESS Verified 03/25/18 18:18 OF BREATH, diaphoretic, hives procaine Allergy Severe SHORTNESS Verified 03/25/18 18:18 OF BREATH, diaphoretic, hives amoxicillin Allergy Intermediate HIVES/FACIAL Verified 03/25/18 18:18 SWELLING lisinopril Allergy Intermediate HIVES Verified 03/25/18 18:18 albuterol Allergy Mild proair Verified 03/25/18 18:18 "trouble taking breaths" clavulanic acid Allergy Unknown . Verified 03/25/18 18:18 acetaminophen AdvReac Mild NAUSEA Verified 03/25/18 18:18 Past Med/Surg History Medical History COPD (chronic obstructive pulmonary disease) (Chronic) Cognitive impairment DM II (diabetes mellitus, type II), controlled Depression Fatty liver GERD (gastroesophageal reflux disease) HTN (hypertension) Medical non-compliance Morbid obesity with BMI of 50.0-59.9, adult Nonischemic cardiomyopathy EF 30-35% MARIELENA (obstructive sleep apnea) Does not comply with CPAP Surgical History History of cholecystectomy Family History Other No pertinent family history Social History marital status: Current Living Situation: Spouse current occupational status: unemployed Other Information That Helps Us Care for You: No Feels Safe at Home: Yes Safety Concerns: Feels Safe At This Time Smoking Status: Former smoker Tobacco Type: cigarettes Second Hand Exposure: No Hx Alcohol Use: Yes Alcohol type: other Alcohol Intake Frequency: holidays/ special occasions only Hx Substance Use: No Beliefs That Will Affect Care: None Communication Ability: Effective Review of Systems See HPI for pertinent positives & negatives. and A total of 10 systems reviewed and were otherwise negative Physical Exam Vital Signs Vital Signs - 24 hr 03/25/18 16:55 03/25/18 18:35 03/25/18 18:38 Temperature 36.7 C Temperature Source Oral Sepsis Recent Fever Within 48 Hours No Sepsis New/Unexplained Change in Mental Status No Sepsis Action Taken by Nursing No Action Required Pulse Rate 111 H 100 H 99 H Pulse Rate [Right Finger] Pulse Rhythm Regular Pulse Rhythm [Right Finger] Pulse Strength Normal Pulse Strength [Right Finger] Respiratory Rate 20 20 24 Respiratory Effort / Characteristics Non-Labored Spontaneous Respiratory Depth Normal Respiratory Pattern Regular Blood Pressure 204/133 H 181/130 H Blood Pressure [Left Arm] Blood Pressure [Right Arm] Blood Pressure Mean 156 147 Blood Pressure Mean [Left Arm] Blood Pressure Mean [Right Arm] Blood Pressure Position Sitting Blood Pressure Position [Left Arm] Blood Pressure Position [Right Arm] Pulse Oximetry 93 Oxygen Delivery Method Room Air 03/25/18 18:39 03/25/18 19:00 03/25/18 19:13 Temperature Temperature Source Sepsis Recent Fever Within 48 Hours Sepsis New/Unexplained Change in Mental Status Sepsis Action Taken by Nursing Pulse Rate 97 H 104 H Pulse Rate [Right Finger] 98 H Pulse Rhythm Pulse Rhythm [Right Finger] Pulse Strength Pulse Strength [Right Finger] Respiratory Rate 20 18 29 H Respiratory Effort / Characteristics Non-Labored Respiratory Depth Normal Respiratory Pattern Blood Pressure 181/128 H Blood Pressure [Left Arm] Blood Pressure [Right Arm] 181/130 H Blood Pressure Mean 145 Blood Pressure Mean [Left Arm] Blood Pressure Mean [Right Arm] 147 Blood Pressure Position Blood Pressure Position [Left Arm] Blood Pressure Position [Right Arm] Pulse Oximetry 94 93 Oxygen Delivery Method Room Air 03/25/18 19:30 03/25/18 19:40 03/25/18 20:00 Temperature Temperature Source Sepsis Recent Fever Within 48 Hours Sepsis New/Unexplained Change in Mental Status Sepsis Action Taken by Nursing Pulse Rate 104 H 109 H 109 H Pulse Rate [Right Finger] Pulse Rhythm Pulse Rhythm [Right Finger] Pulse Strength Pulse Strength [Right Finger] Respiratory Rate 24 25 H 24 Respiratory Effort / Characteristics Respiratory Depth Respiratory Pattern Blood Pressure 193/146 H Blood Pressure [Left Arm] Blood Pressure [Right Arm] Blood Pressure Mean 161 Blood Pressure Mean [Left Arm] Blood Pressure Mean [Right Arm] Blood Pressure Position Blood Pressure Position [Left Arm] Blood Pressure Position [Right Arm] Pulse Oximetry 91 92 95 Oxygen Delivery Method 03/25/18 20:20 03/25/18 20:30 03/25/18 21:00 Temperature Temperature Source Sepsis Recent Fever Within 48 Hours Sepsis New/Unexplained Change in Mental Status Sepsis Action Taken by Nursing Pulse Rate 101 H 108 H Pulse Rate [Right Finger] 108 H Pulse Rhythm Pulse Rhythm [Right Finger] Pulse Strength Pulse Strength [Right Finger] Respiratory Rate 27 H 28 H Respiratory Effort / Characteristics Non-Labored Spontaneous Respiratory Depth Normal Respiratory Pattern Blood Pressure 182/131 H Blood Pressure [Left Arm] Blood Pressure [Right Arm] 182/131 H Blood Pressure Mean 148 Blood Pressure Mean [Left Arm] Blood Pressure Mean [Right Arm] 148 Blood Pressure Position Blood Pressure Position [Left Arm] Blood Pressure Position [Right Arm] Pulse Oximetry 95 96 96 Oxygen Delivery Method Room Air 03/25/18 21:15 03/25/18 21:38 03/25/18 21:39 Temperature Temperature Source Sepsis Recent Fever Within 48 Hours Sepsis New/Unexplained Change in Mental Status Sepsis Action Taken by Nursing Pulse Rate Pulse Rate [Right Finger] Pulse Rhythm Pulse Rhythm [Right Finger] Pulse Strength Pulse Strength [Right Finger] Respiratory Rate Respiratory Effort / Characteristics Respiratory Depth Respiratory Pattern Blood Pressure 174/124 H 193/122 H Blood Pressure [Left Arm] Blood Pressure [Right Arm] Blood Pressure Mean 140 145 Blood Pressure Mean [Left Arm] Blood Pressure Mean [Right Arm] Blood Pressure Position Blood Pressure Position [Left Arm] Blood Pressure Position [Right Arm] Pulse Oximetry 95 93 94 Oxygen Delivery Method 03/25/18 21:45 03/25/18 22:00 03/25/18 22:30 Temperature Temperature Source Sepsis Recent Fever Within 48 Hours Sepsis New/Unexplained Change in Mental Status Sepsis Action Taken by Nursing Pulse Rate Pulse Rate [Right Finger] 105 H Pulse Rhythm Pulse Rhythm [Right Finger] Pulse Strength Pulse Strength [Right Finger] Respiratory Rate 20 Respiratory Effort / Characteristics Respiratory Depth Respiratory Pattern Blood Pressure Blood Pressure [Left Arm] Blood Pressure [Right Arm] 193/122 H Blood Pressure Mean Blood Pressure Mean [Left Arm] Blood Pressure Mean [Right Arm] 145 Blood Pressure Position Blood Pressure Position [Left Arm] Blood Pressure Position [Right Arm] Sitting Pulse Oximetry 95 98 96 Oxygen Delivery Method Room Air 03/25/18 22:40 03/25/18 22:59 03/25/18 23:00 Temperature Temperature Source Sepsis Recent Fever Within 48 Hours Sepsis New/Unexplained Change in Mental Status Sepsis Action Taken by Nursing Pulse Rate 105 H Pulse Rate [Right Finger] 90 Pulse Rhythm Pulse Rhythm [Right Finger] Pulse Strength Pulse Strength [Right Finger] Respiratory Rate 22 18 Respiratory Effort / Characteristics Non-Labored Spontaneous Respiratory Depth Normal Respiratory Pattern Blood Pressure 168/105 H 168/134 H 171/124 H Blood Pressure [Left Arm] Blood Pressure [Right Arm] 168/105 H Blood Pressure Mean 126 145 139 Blood Pressure Mean [Left Arm] Blood Pressure Mean [Right Arm] 126 Blood Pressure Position Blood Pressure Position [Left Arm] Blood Pressure Position [Right Arm] Pulse Oximetry 97 95 95 Oxygen Delivery Method Room Air 03/26/18 00:00 03/26/18 00:44 03/26/18 00:49 Temperature 36.6 C Temperature Source Oral Sepsis Recent Fever Within 48 Hours Sepsis New/Unexplained Change in Mental Status Sepsis Action Taken by Nursing Pulse Rate Pulse Rate [Right Finger] 102 H 98 H 114 H Pulse Rhythm Pulse Rhythm [Right Finger] Regular Regular Pulse Strength Pulse Strength [Right Finger] Normal Normal Respiratory Rate 20 20 24 Respiratory Effort / Characteristics Non-Labored Spontaneous Non-Labored Non-Labored Respiratory Depth Normal Normal Normal Respiratory Pattern Regular Regular Regular Blood Pressure Blood Pressure [Left Arm] Blood Pressure [Right Arm] 183/131 H 177/129 H 197/141 H Blood Pressure Mean Blood Pressure Mean [Left Arm] Blood Pressure Mean [Right Arm] 148 145 159 Blood Pressure Position Blood Pressure Position [Left Arm] Blood Pressure Position [Right Arm] Sitting Lying Lying Pulse Oximetry 94 98 Oxygen Delivery Method Room Air Room Air 03/26/18 01:11 03/26/18 03:38 03/26/18 07:15 Temperature 36.5 C 36.6 C Temperature Source Oral Oral Sepsis Recent Fever Within 48 Hours Sepsis New/Unexplained Change in Mental Status Sepsis Action Taken by Nursing Pulse Rate 102 H Pulse Rate [Right Finger] 88 84 Pulse Rhythm Pulse Rhythm [Right Finger] Pulse Strength Pulse Strength [Right Finger] Respiratory Rate 18 19 Respiratory Effort / Characteristics Respiratory Depth Respiratory Pattern Blood Pressure Blood Pressure [Left Arm] 143/95 H Blood Pressure [Right Arm] 173/132 H Blood Pressure Mean Blood Pressure Mean [Left Arm] 111 Blood Pressure Mean [Right Arm] 145 Blood Pressure Position Blood Pressure Position [Left Arm] Lying Blood Pressure Position [Right Arm] Lying Pulse Oximetry 95 94 Oxygen Delivery Method Room Air Room Air 03/26/18 11:30 03/26/18 15:25 Temperature 36.8 C 36.3 C L Temperature Source Oral Oral Sepsis Recent Fever Within 48 Hours Sepsis New/Unexplained Change in Mental Status Sepsis Action Taken by Nursing Pulse Rate Pulse Rate [Right Finger] 90 85 Pulse Rhythm Pulse Rhythm [Right Finger] Pulse Strength Pulse Strength [Right Finger] Respiratory Rate 22 20 Respiratory Effort / Characteristics Respiratory Depth Respiratory Pattern Blood Pressure Blood Pressure [Left Arm] 159/99 H Blood Pressure [Right Arm] 150/83 H Blood Pressure Mean Blood Pressure Mean [Left Arm] 119 Blood Pressure Mean [Right Arm] 105 Blood Pressure Position Blood Pressure Position [Left Arm] Blood Pressure Position [Right Arm] Lying Pulse Oximetry 95 91 Oxygen Delivery Method Room Air GENERAL: Morbidly obese, alert, well appearing, well nourished, no distress, non -toxic EYE EXAM: normal conjunctiva, PERRL and EOM's grossly intact OROPHARYNX: no exudate, no erythema, lips, buccal mucosa, and tongue normal and mucous membranes are moist NECK: supple, no nuchal rigidity, no adenopathy, non-tender LUNGS: Clear to auscultation. Normal chest wall mechanics, no w/r/ HEART: no murmurs, S1 normal and S2 normal ABDOMEN: abdomen soft, non-tender, normo-active bowel sounds, no masses, no rebound or guarding. BACK: Back is symmetrical on inspection and there is no deformity, no midline tenderness, no CVA tenderness. SKIN: no rashes and no bruising UPPER EXTREMITIES: upper extremities are grossly normal. FROM, nml pulses b/l. LOWER EXTREMITIES: No pitting edema. FROM, nml pulses b/l. NEURO EXAM: Normal sensorium, cranial nerves II-XII grossly intact, normal speech, no gross weakness of arms, no gross weakness of legs. Course 1702: Past medical records reviewed. The patient was evaluated in room B06, and a complete history and physical examination were performed. 2039: I reevaluated the patient and he is urinating a lot since the water pill. He does still have a headach and his pressure is still high. I offered isosorbide for his headache and he refused. 2114: I spoke to Dr. Burr - [facility] Hospitalist about the patient's case and she is going to evaluate him. 2219: After evaluation, Dr. Burr has agreed to accept the patient for further treatment Consultations Consultation #1: I spoke to Dr. Leno Solano [facility] Hospitalist about the patient's case and she is going to evaluate him. Time: 21:15 Administered Medications Aspirin (Ecotrin Ectab) 81 mg PO QAM [facility] Stop: 04/25/18 08:59 Last Admin: 03/26/18 11:28 Dose: 81 mg Enoxaparin Sodium (Lovenox) 40 mg SQ Q24H [facility] Stop: 04/25/18 08:59 Last Admin: 03/26/18 11:13 Dose: 40 mg Hydralazine HCl (Apresoline) 50 mg PO TID [facility] Stop: 04/25/18 08:59 Last Admin: 03/26/18 13:03 Dose: 50 mg Admin: 03/26/18 08:14 Dose: 50 mg Hydralazine HCl (Hydralazine Hcl) 10 mg IV Q4H PRN PRN Reason: hypertension Stop: 04/25/18 00:00 Last Admin: 03/26/18 00:43 Dose: 10 mg Furosemide 80 mg/ Syringe 8 mls @ 4 mls/min IV BID [facility] Stop: 04/25/18 00:44 Last Admin: 03/26/18 08:15 Dose: 4 mls/min Admin: 03/26/18 00:51 Dose: 4 mls/min Insulin Aspart (Novolog Flexpen) 0 units SC ACHS [facility] Stop: 04/25/18 07:29 Last Admin: 03/26/18 13:45 Dose: 7 units Admin: 03/26/18 10:36 Dose: Not Given Insulin Glargine (Lantus Solostar Pen) 15 units SC BID [facility] Stop: 04/25/18 08:59 Last Admin: 03/26/18 08:15 Dose: 15 units Ioversol (Optiray 320 125ml) 125 ml IV ONCE PRN PRN Reason: Interaction Checking Stop: 03/30/18 01:39 Last Admin: 03/26/18 01:41 Dose: 117 ml Metoprolol Succinate (Toprol Xl) 150 mg PO BID [facility] Stop: 04/25/18 00:00 Last Admin: 03/26/18 08:14 Dose: 150 mg Admin: 03/26/18 00:51 Dose: 150 mg Miscellaneous (Order Awaiting Action) 1 ea N/A QS [facility] Stop: 04/25/18 07:59 Last Admin: 03/26/18 08:19 Dose: Not Given Miscellaneous (Order Awaiting Action) 1 ea N/A QS [facility] Stop: 04/25/18 07:59 Last Admin: 03/26/18 08:19 Dose: Not Given Pantoprazole Sodium (Protonix) 40 mg PO DAILY [facility] Stop: 04/25/18 08:59 Last Admin: 03/26/18 08:15 Dose: 40 mg Potassium Chloride (Klor-Con M20) 20 meq PO QAM [facility] Stop: 04/25/18 08:59 Last Admin: 03/26/18 08:14 Dose: 20 meq Sacubitril/Valsartan (Entresto 24/26mg) 2 tab PO BID [facility] Stop: 04/25/18 08:59 Last Admin: 03/26/18 08:14 Dose: 2 tab Sacubitril/Valsartan (Entresto 49/51mg) 1 tab PO BID [facility] Stop: 04/25/18 08:59 Last Admin: 03/26/18 08:14 Dose: 1 tab Vitamin D (Vitamin D3) 2,000 units PO BID [facility] Stop: 04/25/18 08:59 Last Admin: 03/26/18 08:14 Dose: 2,000 units Discontinued Medications Diphenhydramine HCl (Benadryl) 25 mg IV NOW STA Stop: 03/26/18 00:55 Last Admin: 03/26/18 01:52 Dose: 25 mg Furosemide (Lasix) 40 mg IV NOW STA Stop: 03/25/18 18:08 Last Admin: 03/25/18 19:13 Dose: 40 mg Hydralazine HCl (Hydralazine Hcl) 10 mg IV NOW STA Stop: 03/25/18 20:12 Last Admin: 03/25/18 20:21 Dose: 10 mg Isosorbide Dinitrate (Isordil) 20 mg PO 0700,1200,1700 [facility] Stop: 04/25/18 06:59 Last Admin: 03/26/18 11:13 Dose: 20 mg Admin: 03/26/18 08:14 Dose: 20 mg Non-Formulary Medication (Sacubitril-Valsartan [Sacubitril-Valsartan]) 1.5 tab PO BID [facility] Stop: 04/25/18 00:00 Last Admin: 03/26/18 01:56 Dose: Not Given Medical Decision Making Differential Diagnosis Differential diagnoses includes but is not limited to pneumonia, bronchitis, COPD/Asthma exacerbation, pneumothorax, pulmonary embolism, congestive heart failure, acute coronary syndrome Medical Records Attestation: I reviewed the patient's medical records. Home Medications Current Medication List: was personally reviewed by me Laboratory Data Attestation: I reviewed the patient's lab results. Result diagrams: 03/26/18 06:07 03/26/18 11:59 Lab Results 03/25/18 03/25/18 03/25/18 Range/Units 17:24 18:37 18:58 WBC 10.51 (4.8-10.8) K/uL RBC 4.99 (4.7-6.1) M/uL Hgb 14.5 (14.0-18.0) g/dL Hct 42.2 (42-52) % MCV 84.6 (80-100) fL MCH 29.1 (25-34) pg MCHC 34.4 (32-36) g/dL RDW Std Deviation 44.7 (36.4-46.3) fL RDW Coeff of Zoltan 14.5 (11.5-14.5) % Plt Count 157 (130-400) K/uL MPV 9.9 (7.4-10.4) fL Immature Gran % (Auto) 0.3 % Neut % (Auto) 67.4 % Lymph % (Auto) 24.0 % Stafford % (Auto) 5.7 % Eos % (Auto) 2.3 % Baso % (Auto) 0.3 % Immature Gran # (Auto) 0.03 H (0.00-0.02) K/uL Neut # (Auto) 7.09 H (1.4-6.5) K/uL Lymph # (Auto) 2.52 (1.2-3.4) K/uL Stafford # (Auto) 0.60 H (0.11-0.59) K/uL Eos # (Auto) 0.24 (0-0.5) K/uL Baso # (Auto) 0.03 (0-0.2) K/uL PT (9.0-12.0) Seconds INR (0.9-1.1) ABG pH 7.46 H (7.35-7.45) ABG pCO2 35 (35-46) mmHg ABG pO2 72 L (80-95) mm/Hg ABG HCO3 25 H (19-24) mmol/L ABG O2 Saturation 95.1 H (90-95) % ABG Base Excess 1.2 (-9-1.8) mEq/L Ankur Test Pos (Pos) Barometric Pressure 737.0 mm/Hg Oxygen Given ROOM AIR Sodium (136-145) mmol/L Potassium (3.5-5.1) mmol/L Chloride (98-107) mmol/L Carbon Dioxide (21-32) mmol/L Anion Gap (3-11) BUN (7-18) mg/dl Creatinine (0.6-1.4) mg/dl Est Cr Clr Drug Dosing Est GFR ( Amer) Est GFR (Non-Af Amer) BUN/Creatinine Ratio (10-20) Glucose (70-99) mg/dl POC Glucose (70-99) Calcium (8.5-10.1) mg/dl Magnesium (1.8-2.4) mg/dl Total Bilirubin (0.2-1) mg/dl AST (15-37) U/L ALT (12-78) U/L Alkaline Phosphatase (45-117) U/L Troponin I (0-0.045) ng/ml NT-Pro-B Natriuret Pep (0-450) pg/ml Total Protein (6.4-8.2) gm/dl Albumin (3.4-5.0) gm/dl Globulin (2.5-4.0) gm/dl Albumin/Globulin Ratio (0.9-2) Lipase (73-393) U/L TSH (0.300-4.500) uIu/ml Urine Color Yellow Urine Appearance Clear (Clear) Urine pH 6.0 (4.5-7.5) Ur Specific [place] 1.022 (1.000-1.030) Urine Protein 1+ H (Negative) Urine Glucose (UA) Negative (Negative) Urine Ketones Negative (Negative) Urine Blood Negative (Negative) Urine Nitrite Negative (Negative) Urine Bilirubin Negative (Negative) Urine Urobilinogen Negative (Negative) Ur Leukocyte Esterase Negative (Negative) Urine WBC (Auto) 1-5 (0-5) /hpf Urine RBC (Auto) 0-4 (0-4) /hpf U Hyaline Cast (Auto) 0 (0-5) /lpf U Epithel Cells (Auto) >30 H (0-5) /lpf Urine Bacteria (Auto) Negative (Negative) 03/25/18 03/25/18 03/25/18 Range/Units 18:58 18:58 23:53 WBC (4.8-10.8) K/uL RBC (4.7-6.1) M/uL Hgb (14.0-18.0) g/dL Hct (42-52) % MCV (80-100) fL MCH (25-34) pg MCHC (32-36) g/dL RDW Std Deviation (36.4-46.3) fL RDW Coeff of Zoltan (11.5-14.5) % Plt Count (130-400) K/uL MPV (7.4-10.4) fL Immature Gran % (Auto) % Neut % (Auto) % Lymph % (Auto) % Stafford % (Auto) % Eos % (Auto) % Baso % (Auto) % Immature Gran # (Auto) (0.00-0.02) K/uL Neut # (Auto) (1.4-6.5) K/uL Lymph # (Auto) (1.2-3.4) K/uL Stafford # (Auto) (0.11-0.59) K/uL Eos # (Auto) (0-0.5) K/uL Baso # (Auto) (0-0.2) K/uL PT 10.3 (9.0-12.0) Seconds INR 1.0 (0.9-1.1) ABG pH (7.35-7.45) ABG pCO2 (35-46) mmHg ABG pO2 (80-95) mm/Hg ABG HCO3 (19-24) mmol/L ABG O2 Saturation (90-95) % ABG Base Excess (-9-1.8) mEq/L Ankur Test (Pos) Barometric Pressure mm/Hg Oxygen Given Sodium 140 (136-145) mmol/L Potassium 4.0 (3.5-5.1) mmol/L Chloride 107 (98-107) mmol/L Carbon Dioxide 24 (21-32) mmol/L Anion Gap 9.0 (3-11) BUN 12 (7-18) mg/dl Creatinine 0.85 (0.6-1.4) mg/dl Est Cr Clr Drug Dosing Not Reportable Est GFR ( Amer) 125.4 Est GFR (Non-Af Amer) 108.2 BUN/Creatinine Ratio 14.1 (10-20) Glucose 105 H (70-99) mg/dl POC Glucose 110 H (70-99) Calcium 8.7 (8.5-10.1) mg/dl Magnesium 1.8 (1.8-2.4) mg/dl Total Bilirubin 0.7 (0.2-1) mg/dl AST 19 (15-37) U/L ALT 28 (12-78) U/L Alkaline Phosphatase 86 (45-117) U/L Troponin I 0.024 (0-0.045) ng/ml NT-Pro-B Natriuret Pep 2413 H (0-450) pg/ml Total Protein 6.8 (6.4-8.2) gm/dl Albumin 3.4 (3.4-5.0) gm/dl Globulin 3.4 (2.5-4.0) gm/dl Albumin/Globulin Ratio 1.0 (0.9-2) Lipase 113 (73-393) U/L TSH 1.370 (0.300-4.500) uIu/ml Urine Color Urine Appearance (Clear) Urine pH (4.5-7.5) Ur Specific [place] (1.000-1.030) Urine Protein (Negative) Urine Glucose (UA) (Negative) Urine Ketones (Negative) Urine Blood (Negative) Urine Nitrite (Negative) Urine Bilirubin (Negative) Urine Urobilinogen (Negative) Ur Leukocyte Esterase (Negative) Urine WBC (Auto) (0-5) /hpf Urine RBC (Auto) (0-4) /hpf U Hyaline Cast (Auto) (0-5) /lpf U Epithel Cells (Auto) (0-5) /lpf Urine Bacteria (Auto) (Negative) 03/26/18 03/26/18 03/26/18 Range/Units 00:10 06:07 06:07 WBC 9.61 (4.8-10.8) K/uL RBC 5.31 (4.7-6.1) M/uL Hgb 15.5 (14.0-18.0) g/dL Hct 44.5 (42-52) % MCV 83.8 (80-100) fL MCH 29.2 (25-34) pg MCHC 34.8 (32-36) g/dL RDW Std Deviation 44.8 (36.4-46.3) fL RDW Coeff of Zoltan 14.7 H (11.5-14.5) % Plt Count 166 (130-400) K/uL MPV 10.2 (7.4-10.4) fL Immature Gran % (Auto) 0.2 % Neut % (Auto) 71.8 % Lymph % (Auto) 19.1 % Stafford % (Auto) 6.9 % Eos % (Auto) 1.8 % Baso % (Auto) 0.2 % Immature Gran # (Auto) 0.02 (0.00-0.02) K/uL Neut # (Auto) 6.90 H (1.4-6.5) K/uL Lymph # (Auto) 1.84 (1.2-3.4) K/uL Stafford # (Auto) 0.66 H (0.11-0.59) K/uL Eos # (Auto) 0.17 (0-0.5) K/uL Baso # (Auto) 0.02 (0-0.2) K/uL PT (9.0-12.0) Seconds INR (0.9-1.1) ABG pH (7.35-7.45) ABG pCO2 (35-46) mmHg ABG pO2 (80-95) mm/Hg ABG HCO3 (19-24) mmol/L ABG O2 Saturation (90-95) % ABG Base Excess (-9-1.8) mEq/L Ankur Test (Pos) Barometric Pressure mm/Hg Oxygen Given Sodium 139 138 (136-145) mmol/L Potassium 3.5 3.4 L (3.5-5.1) mmol/L Chloride 106 105 (98-107) mmol/L Carbon Dioxide 26 27 (21-32) mmol/L Anion Gap 7.0 6.0 (3-11) BUN 11 12 (7-18) mg/dl Creatinine 0.92 0.88 (0.6-1.4) mg/dl Est Cr Clr Drug Dosing 157.2 164.3 Est GFR ( Amer) 119.3 123.7 Est GFR (Non-Af Amer) 102.9 106.7 BUN/Creatinine Ratio 12.2 13.7 (10-20) Glucose 122 H 131 H (70-99) mg/dl POC Glucose (70-99) Calcium 8.4 L 8.6 (8.5-10.1) mg/dl Magnesium (1.8-2.4) mg/dl Total Bilirubin (0.2-1) mg/dl AST (15-37) U/L ALT (12-78) U/L Alkaline Phosphatase (45-117) U/L Troponin I 0.025 (0-0.045) ng/ml NT-Pro-B Natriuret Pep (0-450) pg/ml Total Protein (6.4-8.2) gm/dl Albumin (3.4-5.0) gm/dl Globulin (2.5-4.0) gm/dl Albumin/Globulin Ratio (0.9-2) Lipase (73-393) U/L TSH (0.300-4.500) uIu/ml Urine Color Urine Appearance (Clear) Urine pH (4.5-7.5) Ur Specific [place] (1.000-1.030) Urine Protein (Negative) Urine Glucose (UA) (Negative) Urine Ketones (Negative) Urine Blood (Negative) Urine Nitrite (Negative) Urine Bilirubin (Negative) Urine Urobilinogen (Negative) Ur Leukocyte Esterase (Negative) Urine WBC (Auto) (0-5) /hpf Urine RBC (Auto) (0-4) /hpf U Hyaline Cast (Auto) (0-5) /lpf U Epithel Cells (Auto) (0-5) /lpf Urine Bacteria (Auto) (Negative) 03/26/18 03/26/18 03/26/18 Range/Units 07:22 11:20 11:59 WBC (4.8-10.8) K/uL RBC (4.7-6.1) M/uL Hgb (14.0-18.0) g/dL Hct (42-52) % MCV (80-100) fL MCH (25-34) pg MCHC (32-36) g/dL RDW Std Deviation (36.4-46.3) fL RDW Coeff of Zoltan (11.5-14.5) % Plt Count (130-400) K/uL MPV (7.4-10.4) fL Immature Gran % (Auto) % Neut % (Auto) % Lymph % (Auto) % Stafford % (Auto) % Eos % (Auto) % Baso % (Auto) % Immature Gran # (Auto) (0.00-0.02) K/uL Neut # (Auto) (1.4-6.5) K/uL Lymph # (Auto) (1.2-3.4) K/uL Stafford # (Auto) (0.11-0.59) K/uL Eos # (Auto) (0-0.5) K/uL Baso # (Auto) (0-0.2) K/uL PT (9.0-12.0) Seconds INR (0.9-1.1) ABG pH (7.35-7.45) ABG pCO2 (35-46) mmHg ABG pO2 (80-95) mm/Hg ABG HCO3 (19-24) mmol/L ABG O2 Saturation (90-95) % ABG Base Excess (-9-1.8) mEq/L Ankur Test (Pos) Barometric Pressure mm/Hg Oxygen Given Sodium 136 (136-145) mmol/L Potassium 3.9 (3.5-5.1) mmol/L Chloride 104 (98-107) mmol/L Carbon Dioxide 26 (21-32) mmol/L Anion Gap 6.0 (3-11) BUN 14 (7-18) mg/dl Creatinine 1.04 (0.6-1.4) mg/dl Est Cr Clr Drug Dosing 139.0 Est GFR ( Amer) 102.9 Est GFR (Non-Af Amer) 88.8 BUN/Creatinine Ratio 13.1 (10-20) Glucose 145 H (70-99) mg/dl POC Glucose 130 H 129 H (70-99) Calcium 8.9 (8.5-10.1) mg/dl Magnesium (1.8-2.4) mg/dl Total Bilirubin (0.2-1) mg/dl AST (15-37) U/L ALT (12-78) U/L Alkaline Phosphatase (45-117) U/L Troponin I (0-0.045) ng/ml NT-Pro-B Natriuret Pep (0-450) pg/ml Total Protein (6.4-8.2) gm/dl Albumin (3.4-5.0) gm/dl Globulin (2.5-4.0) gm/dl Albumin/Globulin Ratio (0.9-2) Lipase (73-393) U/L TSH (0.300-4.500) uIu/ml Urine Color Urine Appearance (Clear) Urine pH (4.5-7.5) Ur Specific [place] (1.000-1.030) Urine Protein (Negative) Urine Glucose (UA) (Negative) Urine Ketones (Negative) Urine Blood (Negative) Urine Nitrite (Negative) Urine Bilirubin (Negative) Urine Urobilinogen (Negative) Ur Leukocyte Esterase (Negative) Urine WBC (Auto) (0-5) /hpf Urine RBC (Auto) (0-4) /hpf U Hyaline Cast (Auto) (0-5) /lpf U Epithel Cells (Auto) (0-5) /lpf Urine Bacteria (Auto) (Negative) Imaging Data Radiologist's Impression: Radiology results as stated below per my review and the radiologist's interpretation: SINGLE VIEW CHEST CLINICAL HISTORY: Dyspnea. FINDINGS: An AP, portable, upright chest radiograph is compared to study dated and correlated with chest CT dated 01/22/2018. The examination is degraded by portable technique and apical lordotic positioning. The heart is enlarged. There is mild pulmonary vascular congestion. Bibasilar atelectasis is observed. No large pleural effusion or pneumothorax is seen. The bony thorax is grossly intact. IMPRESSION: Cardiomegaly with evidence of mild congestive failure. Electronically signed by: Abhilash Carpio M.D. 03/25/2018 5:[address] SCAN OF THE BRAIN WITHOUT IV CONTRAST CLINICAL HISTORY: Headache. COMPARISON STUDY: CT and MRI of the brain dated 02/09/2018. TECHNIQUE: Unenhanced axial CT scan of the brain is performed from the vertex to the skull base. A dose lowering technique was utilized adhering to the principles of ALARA. CT DOSE: 773.57 mGy.cm FINDINGS: Brain parenchyma: Foci of low-attenuation within the periventricular white matter are similar to previous. There is no hemorrhage, mass effect, or evidence of acute territorial ischemia by CT criteria. Adams-white matter differentiation is preserved. No extra-axial fluid collection is seen. Ventricles, sulci, cisterns: Normal in configuration. Intracranial vasculature: The visualized intracranial vasculature at the skull base is normal in appearance. Calvarium: Unremarkable. Sinuses and mastoids: The visualized paranasal sinuses are clear. The mastoid air cells are well pneumatized. Orbits: The bony orbits are grossly intact. IMPRESSION: No acute intracranial abnormality. Electronically signed by: Abhilash Carpio M.D. 03/25/2018 9:35 PM ECG Data Attestation: I personally reviewed and interpreted this ECG as follows: Indication: SOB/dyspnea Rate (beats per minute): 104 Rhythm: sinus tachycardia Findings: + other (LVH), + T-wave inversion (aVL) and + prolonged QT Comparison ECG Date: from (03/09/18) Change: the following changes noted (Prolonged QT is better today) Blood Pressure Blood Pressure Findings: Elevated blood pressure Blood Pressure Disposition: Referred to patients primary care provider [facility] Narrative Patient well-known to the emergency room and here frequently for similar complaints. Patient has been admitted multiple times due to complicated cardiac history. Patient with known cardiomyopathy, ejection fraction the end of last year of 25%, poorly controlled hypertension for various reasons as previously documented in which also include noncompliance with diet medication. Patient here with worsening symptoms again similar to prior exacerbations of his congestive heart failure as well as markedly elevated blood pressure. Patient's blood pressure slowly improved and patient was given an additional dose of Lasix similar to prior. Patient was given additional IV hydralazine. Patient does admit to headaches over states is been chronic since his last admission. No recent trauma or change in quality of the headache. I do not suspect subarachnoid hemorrhage, or meningitis. Patient with no other recent fevers, cough or cold symptoms. No other focal neurologic deficits. Patient does admit to dyspnea on exertion which is likely combination of his poor ejection fraction, increased pulmonary edema, and morbid obesity. Is also previously documented the patient has a component of a learning disability which likely makes his ability to understand the importance of compliance with diet and medications were difficult. Given patient is already on 80 mg of Lasix twice daily as well as Bumex daily, and multiple antihypertensive medications, case discussed with hospitalist due to complexity of his case and current medication regimen. I do not feel patient could safely be given additional diuretics and discharged because of his complicated history, noncompliance, and our inability to assure close follow-up given local severe weather. Hospitalist will see and evaluate evaluate the patient and make additional recommendations. Impression & Plan Hypertension, CHF (congestive heart failure), Obesity, Headache Critical Care Time I have personally spent 35 minutes of critical care time in the direct management of this patient. This includes bedside care, interpretation of diagnostic studies, and testing, discussion with consultants, patient, and family members, and other required patient management activities. This 35 minutes is in excess of all separately billable procedures. Critical Care Time: Yes Total Critical Care Time: 35 Discharge Plan Visit Data *Final* Discharge Date/Time: 03/25/18 23:40 Chief Complaint: Hypertension Stated Complaint: hypertension ED Provider: Poornima Angela Discharge Problem: Hypertension, CHF (congestive heart failure), Obesity, Headache Patient Disposition: Admitted As Inpatient Discharge Instructions Interventions: ED Discharge Assessment Last Done: 03/25/18 23:40 The scribe's documentation has been prepared under my direction and personally reviewed by me in its entirety. I confirm that the note above accurately reflects all work, treatment, procedures, and medical decision making performed by me.
[2018-03-26] MEDS: ISOSORBIDE MONO EXTENDED REL 60 MG TABCR PO SCH (19:29)
--- NOTE | 2018-03-26 22:32 | Consultation Report ---
DATE OF CONSULTATION: 03/26/2018 PULMONARY MEDICINE CONSULTATION REASON FOR CONSULTATION: Hemoptysis. HISTORY OF PRESENT ILLNESS: A 42-year-old morbidly obese white male who was originally scheduled to undergo bronchoscopic evaluation for a significant hemoptysis this morning, but because of severe headache and hypertension discovered at the CHF clinic, he was admitted to the hospital yesterday evening. His primary care physician is Dr. Briceno. He carries a diagnosis of combined systolic and diastolic CHF secondary to NICM with an EF of 35% with previous echo in August of 2017. He has also had a history of COPD, hypertensive cardiovascular disease, IDDM, GERD, severe obstructive sleep apnea with marked weight gain and intolerance to both CPAP and now BiPAP, which he refuses to wear nor is he on nocturnal oxygen. He has been diagnosed with severe obstructive sleep apnea apparently. He was found to have a blood pressure of 220/140 with severe headache and was referred to the ER. The headache has been going on for 1.5 weeks. He has had blurry vision at times without neck stiffness. He has complained of 2- to 3-pillow orthopnea along with lower extremity edema and intermittent chest discomfort. He states since last August returning from visiting family, that he has exhibited hemoptysis that he describes as large chunks of dark red blood greater than 1-2 teaspoons at a time with the most recent bout of hemoptysis being several days ago. He has been followed by Dr. Veronica and his metoprolol dose was increased recently to 150 mg p.o. b.i.d. along with hydralazine 50 mg t.i.d. and isosorbide 60 mg p.o. b.i.d. He was also seen by cardiology/EP for possible placement of a biventricular-AICD, although he has not been taking his isosorbide as it has been giving him symptoms. In the ED, they gave him 40 of IV Lasix and 10 of IV hydralazine. In addition, he was started back on his current medication. He has a history of cognitive impairment, depression, morbid obesity, and as stated earlier significant obstructive sleep apnea. He has quit smoking in the past and is not specific to me as to how long his smoking habit has existed. In review of Dr. Olga Banuelos's notation prior to the bronchoscopy on 03/22/2018, she states that he was admitted for 5 days in February with CHF and continued symptoms of hemoptysis. His obstructive sleep apnea is described as severe mixed obstructive and central apnea with BiPAP set at IPAP of 16 cm, EPAP of 10 since 2016 and supplied by [employer], but he has not used it since October 2017 as he is intolerant. He has had a 17.6-pound weight gain since his last hospitalization less than a month ago. He is noncompliant with diet. He denies chest trauma, hoarseness or pleuritic pain to me. He states the blood is not often mixed with the sputum, but will have sometimes 3-4 episodes daily, that when he goes into a coughing jag he coughs up the blood. He is definitely not vomiting. He states his sister of airway complications, but could not be more specific. For details of past medical history, medications, family and social history, I refer you to current record. Most recent echo in January 2018 showed an LVEF of 25% to 30% with [id number] global LV hypokinesis. Entresto has been titrated as well. He has been followed by nephrology. PHYSICAL EXAMINATION: GENERAL: A morbidly obese white male, difficult to understand when verbalizing, but appears to be oriented x3. VITAL SIGNS: Current BMI 53.7 kg/m2, blood pressure 159/99, pulse 90 and regular, respiratory rate 22, temperature 36.8, O2 sat 95% on room air. SKIN: Without lesion. HEENT: Atraumatic, normocephalic. PERRLA. EOMI. Conjunctivae pale. Sclerae nonicteric. Fundi poorly visualized. NECK: Neck veins are not distended at 45 degrees. No evidence of adenopathy in the supra or infraclavicular areas. LUNGS: Distant P and A. CARDIAC: Regular rate and rhythm. I do not appreciate a gallop. ABDOMEN: Soft, protuberant. EXTREMITIES: 2+ pitting edema. No clubbing. Peripheral cyanosis. NEUROLOGIC: Intact. No lateralizing signs. LABORATORY DATA: Last CT scan of the chest on 01/22/2018 shows no acute process, no obvious adenopathy. CTA done 1 month prior was reviewed and cardiomegaly with volume overload and mild pulmonary edema with bilateral pleural effusions noted at that time. No evidence of pulmonary thromboembolic disease. OVERALL ASSESSMENT: A 42-year-old morbidly obese white male with nonischemic cardiomyopathy and chronic diastolic and systolic heart failure, who presents with poorly controlled hypertension despite aggressive attempts at management and a history of significant hemoptysis dating back to August of 2017. The patient was scheduled for bronchoscopic evaluation this morning, but was hospitalized in the interim 24 hours earlier. I suspect the hemoptysis is from congestive heart failure and when aggravated by poorly controlled hypertension. I believe the sleep apnea needs to be aggressively treated and has been attempted to be aggressively treated, but he has refused with noncompliance and poor tolerance of full facemask BiPAP therapy. That is a problem in this patient as this certainly is contributing to worsening congestive heart failure. We will determine whether it would be in the patient's best interest to have him undergo bronchoscopy during this hospital stay and we will discuss with the primary care service.
[2018-03-27 00:41] LABS: Calcium 8.6 mg/dl (8.5-10.1); Creatinine Clr Calc Pharmacy 112.1 ml/min; Est GFR (African American) 79.3; Est GFR (Non-African American) 68.4; Potassium 3.7 mmol/L (3.5-5.1)
[2018-03-27] MEDS ORDERED: IBUPROFEN 200 MG TAB PO ONE (06:00)
[2018-03-27] MEDS ORDERED: metOLazone 2.5 MG TABLET PO SCH (07:00)
[2018-03-27] MEDS: ASPIRIN 81 MG ECTAB PO SCH (07:27)
[2018-03-27] MEDS: CHOLECALCIFEROL 1,000 UNITS TAB PO SCH (07:28)
[2018-03-27] MEDS: HydrALAZINE TAB 50 MG TAB PO SCH ×2 (07:28→12:51)
[2018-03-27] MEDS: SACUBITRIL-VALSARTAN 49/51 MG TAB PO SCH (07:28)
[2018-03-27] MEDS: POTASSIUM CHLORIDE 20 MEQ TABCR PO SCH (07:28)
[2018-03-27] MEDS: ISOSORBIDE MONO EXTENDED REL 60 MG TABCR PO SCH (07:28)
[2018-03-27] MEDS: PANTOprazole 40 MG TAB PO SCH (07:28)
[2018-03-27] MEDS: METOPROLOL SUCC 50MG EXT REL TAB PO SCH (07:28)
[2018-03-27] MEDS: ENOXAPARIN INJ 40 MG/0.4 ML SYR SQ SCH (07:29)
[2018-03-27] MEDS: SACUBITRIL-VALSARTAN 24-26 MG TAB PO SCH (07:29)
[2018-03-27] MEDS: INSULIN GLARGINE SOLOSTAR 100 UNITS/ML 3 ML PEN SC SCH (07:32)
[2018-03-27] MEDS: INSULIN ASPART 100 UNITS/ML 3 ML PEN SC SCH ×2 (07:35→12:51)
[2018-03-27] MEDS: INCRUSE ELLIPTA~ORDER AWAITING ACTION SCH (07:36)
[2018-03-27] MEDS: TRULICITY~ORDER AWAITING ACTION SCH (07:37)
--- NOTE | 2018-03-27 09:15 | Nephrology Progress Note ---
Date of Service March 27, 2018 Assessment & Plan (1) Hypertension: -BP improved with home Rx's -Continue preadmission antihypertensive regimen: -Document I/O's and maintain net negative fluid balance -Continue Hydralazine 50 mg PO TID -Continue Metoprolol 150 mg PO BID -Continue Sacubitril-Valsartan 1.5 mg PO BID -Resume Imdur 60 mg PO BID -Convert lasix to 80 mg PO BID -Continue metolazone 2.5 mg MWF AM -High K+ and low sodium diet (2) CHF (congestive heart failure): -Weight improving 160 --> 156 kg. Baseline appears to be approximately ~ 152 kg. -Document I/O's + daily AM weight. -Monitor metabolic profile daily while inpatient. -Suggest cardiology CHF consult for disposition planning. (3) DM type 2 (diabetes mellitus, type 2): (4) Hemoptysis: -- Pulmonary consult reviewed -- Reviewed importance of NIPPV, patient continues to refuse Subjective No acute events overnight. Alok feels well this morning. Headache improved. Alok denies lightheadedness or dizziness, syncope or presyncope. No chest pain or palpitations. Alok denies hemoptysis this morning. Review of Systems All systems reviewed & are unremarkable except as noted in HPI & below Physical Exam 2 Vital Signs (Past 24 Hours): Last Vital Signs Temp 36.4 C L 03/27/18 07:12 Pulse 81 03/27/18 07:12 Resp 17 03/27/18 07:12 BP 116/71 03/27/18 07:12 Pulse Ox 94 03/27/18 07:12 Constitutional: + morbidly obese; no acute distress Eyes: no conjunctival abnormality and no scleral abnormality ENMT: Mouth: + poor dentition; oral mucous membranes not dry Neck: normal visual inspection and + thick neck Respiratory: no respiratory distress and no cough Auscultation: lungs clear to auscultation bilaterally Cardiovascular: Rate/Rhythm: regular rate Heart Sounds: normal S1 and normal S2; no murmur Extremities: + pedal edema and + varicosities Gastrointestinal (Abdomen): Percussion/Palpation: abdomen soft; abdomen nontender Musculoskeletal: Extremities: no cyanosis, no clubbing and no petechiae Skin: no rashes, warm and dry Neurologic: Motor/Sensory: no tremor and no asterixis Psychiatric: Affect: euthymic affect Insight: + limited insight Results & Data Laboratory Results Laboratory Results - last 24 hr 03/26/18 03/26/18 03/26/18 11:20 11:59 16:21 Sodium 136 Potassium 3.9 Chloride 104 Carbon Dioxide 26 Anion Gap 6.0 BUN 14 Creatinine 1.04 Est Cr Clr Drug Dosing 139.0 Est GFR ( Amer) 102.9 Est GFR (Non-Af Amer) 88.8 BUN/Creatinine Ratio 13.1 Glucose 145 H POC Glucose 129 H 100 H Calcium 8.9 03/26/18 03/27/18 03/27/18 20:15 00:11 07:07 Sodium 137 Potassium 3.7 Chloride 103 Carbon Dioxide 28 Anion Gap 6.0 BUN 18 Creatinine 1.29 Est Cr Clr Drug Dosing 112.1 Est GFR ( Amer) 79.3 Est GFR (Non-Af Amer) 68.4 BUN/Creatinine Ratio 14.0 Glucose 187 H POC Glucose 135 H 148 H Calcium 8.6 _ (1) Hypertension Hypertension type: essential hypertension Qualified Code(s): I10 - Essential (primary) hypertension (2) CHF (congestive heart failure) Heart failure chronicity: acute on chronic Heart failure type: combined systolic and diastolic Qualified Code(s): I50.43 - Acute on chronic combined systolic (congestive) and diastolic (congestive) heart failure (3) DM type 2 (diabetes mellitus, type 2) Diabetes mellitus residential insulin use: with residential use Diabetes mellitus complication status: with circulatory complication Diabetes mellitus complication detail: with other circulatory complications Diabetic retinopathy severity: Proliferative retinopathy type: Diabetes mellitus macular edema: Laterality: Chronic kidney disease stage: Qualified Code(s): E11.59 - Type 2 diabetes mellitus with other circulatory complications; 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
--- NOTE | 2018-03-27 09:33 | Hospitalist Progress Note ---
Date of Service March 26, 2018 Assessment & Plan (1) Hypertension: Patient with markedly elevated blood pressure in clinic today as well as headache. He was sent to the ER for further workup and treatment. EKG with no STEMI, troponin detectable at 0.024 which is near his baseline level. CT head negative. Physical exam non-focal. Patient with history of medication non- adherance. -Admit to PCU -Hydralazine 10mg IV q 4 hours PRN -Continue Hydralazine 50mg po TID -Continue Metoprolol 150mg po BID -Continue Sacubitril-Valsartan 1.5mg po BID -Will hold isosorbide mononitrate as patient thinks he may have had a reaction to it -Start isosorbide dinitrate 20mg po TID -Lasix 80mg IV BID -Metolazone 2.5mg po q M/W/F -Monitor blood pressure - if no improvement with PO medications will consider MICU transfer with Nicardipine gtt (2) Headache: Patient reports headache has subsided. - CT soft tissue neck with contrast was negative. -Tylenol as needed for pain (3) CHF (congestive heart failure): Patient with combined systolic, diastolic dysfunction secondary to NICM, EF 35-40% per echo 08/2017, LV hypokinesis, KIP=[id number]. He follows with Dr. Veronica. Has been complainin of weight gain, orthopnea, edema, SOB. Patient does not appear to be grossly volume overloaded on exam, however, difficult secondary to body habitus. No respiratory distress. -Admitted to PCU will continue: -Lasix 80 mg IV BID -Metolazone as directed q M/W/ -BMP BID to assess electrolytes during diuresis -Daily weights -Strict intake/output measurement -Low sodium diet -Continue Metoprolol 150mg po BID -Continue Sacubitril-Valsartan 1.5tabls BID -Continue Hydralazine 50mg po TID -Switched patient back to dur. -will reasses weight in AM as patient was just admitted toa. (4) DM type 2 (diabetes mellitus, type 2): Patient discharged on Humalog Mix 50-50 120u qPM and 135u qAM. Glucose= 122. Last HgAIC=7.6 03/09/18 -Start Lantus 15u BID and ISS and adjust as needed -Continue Trulicity (5) COPD (chronic obstructive pulmonary disease): No respiratory distress. No wheezing on exam -Continue umeclidiunium (6) GERD (gastroesophageal reflux disease): Continue Nexium (7) Learning disability: Noted F/E/N - Heplock. Monitor electrolytes and replete as needed. Low Na, CC diet as tolerated ppx - Lovenox. Continue Nexium Code - Full per discussion with patient Spent 5 minutes in management of patient. Subjective Patient reports feeling better, Patient denies any headaches, nasuea, vomiting or symptoms. Review of Systems All systems reviewed & are unremarkable except as noted in HPI & below Physical Exam 2 Vital Signs (Past 24 Hours): Last Vital Signs Temp 36.8 C 03/26/18 11:30 Pulse 90 03/26/18 11:30 Resp 22 03/26/18 11:30 BP 159/99 03/26/18 11:30 Pulse Ox 94 03/26/18 11:30 Physical Exam: General: patient resting comfortably, NAD, non-toxic in appearance, AA&O x 4 Skin: warm, dry, intact, no rashes or lesions HEENT: NC/AT, PERRL, EOMI, anicteric sclera, conjunctiva without injection, external ear normal to inspection. Heart: +S1/S2, regular, tachycardic, no m/r/g Lungs: equal air entry bilaterally, diminished breath sounds, no rales/rhonchi/ wheezes Abd: +BS, soft, NT/ND, no masses/organomegaly/ascites Ext: warm, 2+ pulses in UE/LE bilaterally, no clubbing/cyanosis or edema Neuro: nonfocal, patient AA&O x 4, speech intact, no facial droop, moving all extremities on command with equal strength 5/5 _ (1) Hypertension Hypertension type: essential hypertension Qualified Code(s): I10 - Essential (primary) hypertension (2) Headache Headache chronicity pattern: unspecified pattern Headache type: unspecified Intractability: not intractable Qualified Code(s): R51 - Headache (3) CHF (congestive heart failure) Heart failure chronicity: acute on chronic Heart failure type: combined systolic and diastolic Qualified Code(s): I50.43 - Acute on chronic combined systolic (congestive) and diastolic (congestive) heart failure (4) DM type 2 (diabetes mellitus, type 2) Diabetes mellitus mcc insulin use: with care nurse rn use Diabetes mellitus complication status: with circulatory complication Diabetes mellitus complication detail: with other circulatory complications Diabetic retinopathy severity: Proliferative retinopathy type: Diabetes mellitus macular edema: Laterality: Chronic kidney disease stage: Qualified Code(s): E11.59 - Type 2 diabetes mellitus with other circulatory complications; 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
[2018-03-27] MEDS: FUROSEMIDE 80 MG in SYRINGE 0 ML IV SCH (10:04)
[2018-03-27 12:33] LABS: BUN Creatinine Ratio 17.3 (10-20); Calcium 8.9 mg/dl (8.5-10.1); Creatinine Clr Calc Pharmacy 112.8 ml/min; Est GFR (African American) 81.6; Est GFR (Non-African American) 70.4; Potassium 3.7 mmol/L (3.5-5.1)
--- NOTE | 2018-03-27 13:12 | Heart Failure Progress Note ---
Date of Service March 27, 2018 Subjective Mr. Huff is well known to the heart failure program. He seems to be improving and is scheduled for discharge today. He has had a net loss of 2 L and 5 kg during this admission. His blood pressure is well controlled on his home regimen. We discussed compliance today. There is question whether or not he picked up his medications at the pharmacy. Per the pharmacy his meds were due to be renewed earlier this month and have not. According to the patient, he picked up his medications from [facility] last week? We discussed low sodium diet and fluid restriction. Patient was specifically instructed to avoid fast food and dining out. He was instructed to use his [facility] for fluid intake and should limit himself to 3 of those cups per day. He should avoid soda. His volume status is difficult to assess due to his body habitus. His renal function did spike slightly on higher doses of lasix so he is likely near euvolemic. Goal "dry weight" should be 245lb. He was reminded to continue daily weights and he should bring those to every appointment. He should be discharged on the following medications: - Hydralazine 50 mg TID - Metoprolol 150 mg BID - Entresto 97/103 mg BID - Imdur 60 mg BID - Lasix 80 mg BID - Metolazone 2.5 mg MWF Follow up appointment scheduled for , at 3:00PM. Physical Exam Vital Signs (Past 24 Hours): Last Vital Signs Temp 36.6 C 03/27/18 12:46 Pulse 80 03/27/18 12:46 Resp 16 03/27/18 12:46 BP 125/84 03/27/18 12:46 Pulse Ox 95 03/27/18 12:46
--- NOTE | 2018-03-27 14:32 | Progress Note ---
DATE: 03/27/2018 PULMONARY MEDICINE PROGRESS NOTE Chart reviewed, patient examined. SUBJECTIVE: The patient is feeling much better today. His headache is gone. He does appear to be hypersomnolent. When I approached the room, he is often sleeping in seemingly uncomfortable positions. He has had no further hemoptysis. His blood pressure is much better controlled and he is on a very good regimen with at least compliance here in the hospital. He states he is compliant at home, but there is a question as to whether he is and whether cognitively he understands the need to be so. We once again discussed the use of BiPAP or CPAP at home, and he states that he cannot use the device as the "cord often ends up wrapped around his neck." When I questioned him about a cord(?) rather than the tubing, he is evasive. I questioned why he just does not replace the mask comfortably in good position and go back to sleep. It is clear that he does not wish to broach the subject. I do think he has severe obstructive sleep apnea with mixed obstructive and central components and marked desaturation nocturnally. Certainly this can aggravate his hypertension, which borders on being malignant at times. There has been no further hemoptysis here in the hospital and with a clear chest x- ray and CTA and exam, I question whether he is actually coughing up blood at all, although I do not doubt his sincerity. At this point in time, given that his vital signs are good and there are plans for him to be discharged, I think we can reevaluate him as an outpatient on whether or not a bronchoscopy is indicated going forward. SARITA
--- NOTE | 2018-03-28 08:30 | Discharge Summary ---
Date of Service March 27, 2018 Admission HPI Per Admitting Provider Mr. 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 Patient was sent by Heart Failure clinic for elevated blood pressures in the office - 220/140. He has also been complaining of a headache which prompted his referral to the ER. Patient's headache has been ongoing for approximately 1.5 weeks. It is located on the left side of his face and ear. Pain is severe. He states that his vision is blurry at times and his hearing is diminished in his left ear. He denies numbness, tingling or weakness. Denies fevers, chills, neck stiffness. Patient also complaining of progressive BRISCOE and decreased exercise tolerance over the past few weeks as well as orthopnea and LE edema, R>L. He also complains of intermittent sharp chest discomfort. His weight on discharge from his last hospital stay was 158.7kg (dry weight noted to be around 153 kg). His weight in clinic today was 165kg Patient follows with Dr. Veronica. He was recently seen in clinic last week. His Metoprolol was increased to 150mg po BID at that time. He was also started on Hydralazine 50mg po TID and Isosorbide mononitrite 60mg po BID. He was referred to EP for possible placement of BiV- AICD. Patient is slightly confused about his medications. He says that he has not been taking the Isosorbide moninitrite as it makes him feel confused and "like a zombie", and that his head is swimming. Patient hypertensive upon arrival to the ER at 204/133. He was complaining of headache. ER Course: Lasix 40mg IV, Hydralazine 10mg IV Principal Diagnosis Malignant hypertension/ hypertensive urgency Discharge Exam General: patient resting comfortably, NAD, non-toxic in appearance, AA&O x 4 Skin: warm, dry, intact, no rashes or lesions HEENT: NC/AT, PERRL, EOMI, anicteric sclera, conjunctiva without injection, external ear normal to inspection. Heart: +S1/S2, regular, tachycardic, no m/r/g Lungs: equal air entry bilaterally, diminished breath sounds, no rales/rhonchi/ wheezes Abd: +BS, soft, NT/ND, no masses/organomegaly/ascites Ext: warm, 2+ pulses in UE/LE bilaterally, no clubbing/cyanosis or edema Neuro: nonfocal, patient AA&O x 4, speech intact, no facial droop, moving all extremities on command with equal strength 5/5 Discharge Data Allergies Allergy/AdvReac Type Severity Reaction Status Date / Time ceftriaxone Allergy Severe SHORTNESS Verified 03/25/18 18:18 OF BREATH lidocaine Allergy Severe SHORTNESS Verified 03/25/18 18:18 OF BREATH, diaphoretic, hives procaine Allergy Severe SHORTNESS Verified 03/25/18 18:18 OF BREATH, diaphoretic, hives amoxicillin Allergy Intermediate HIVES/FACIAL Verified 03/25/18 18:18 SWELLING lisinopril Allergy Intermediate HIVES Verified 03/25/18 18:18 albuterol Allergy Mild proair Verified 03/25/18 18:18 "trouble taking breaths" clavulanic acid Allergy Unknown . Verified 03/25/18 18:18 acetaminophen AdvReac Mild NAUSEA Verified 03/25/18 18:18 Consultations 03/25/18 22:26 ED Decision to Admit Stat 03/26/18 09:37 Consult Nephrology Routine 03/26/18 10:50 Consult Pulmonology Routine Procedures Performed Operation Date: 03/26/18 09:00 <No data on this case meets the specified criteria> Ordered Studies 03/25/18 20:50 CT head/brain wo con Stat 03/26/18 01:08 CT soft tissue neck w con Urgent Hospital Course (1) Hypertension: Patient with markedly elevated blood pressure in clinic today as well as headache. He was sent to the ER for further workup and treatment. EKG with no STEMI, troponin detectable at 0.024 which is near his baseline level. CT head negative. Physical exam non-focal. Patient with history of medication non- adherance. -Admit to PCU -Hydralazine 10mg IV q 4 hours PRN -Continue Hydralazine 50mg po TID -Continue Metoprolol 150mg po BID -Continue Sacubitril-Valsartan 1.5mg po BID -restarted imdur. Will discharge patient back on home medical regimen. His BP improved once he began retaining his home regimen. They appears to be a component of non compliance. (2) Headache: Patient reports headache has subsided. - CT soft tissue neck with contrast was negative. -Tylenol as needed for pain (3) CHF (congestive heart failure): Patient with combined systolic, diastolic dysfunction secondary to NICM, EF 35-40% per echo 08/2017, LV hypokinesis, BBO=666. He follows with Dr. Veronica. Has been complainin of weight gain, orthopnea, edema, SOB. Patient does not appear to be grossly volume overloaded on exam, however, difficult secondary to body habitus. No respiratory distress. -Admitted to PCU Patient treated iniatally with -Lasix 80 mg IV BID -Metolazone as directed q // -BMP BID to assess electrolytes during diuresis -Daily weights -Strict intake/output measurement -Low sodium diet -Continue Metoprolol 150mg po BID -Continue Sacubitril-Valsartan 1.5tabls BID -Continue Hydralazine 50mg po TID -Switched patient back to dur. (4) DM type 2 (diabetes mellitus, type 2): Patient discharged on Humalog Mix 50-50 120u qPM and 135u qAM. Glucose= 122. Last HgAIC=7.6 03/09/18 -Start Lantus 15u BID and ISS and adjust as needed -Continue Trulicity (5) COPD (chronic obstructive pulmonary disease): No respiratory distress. No wheezing on exam again discussed the use of BiPAP or CPAP at home, and he states that he cannot use the device as the "cord often ends up wrapped around his neck." When I questioned him about a cord(?) rather than the tubing, he is evasive. I questioned why he just does not replace the mask comfortably in good position and go back to sleep. It is clear that he does not wish to broach the subject. I do think he has severe obstructive sleep apnea with mixed obstructive and central components and marked desaturation nocturnally. Certainly this can aggravate his hypertension, which borders on being malignant at times. There has been no further hemoptysis here in the hospital and with a clear chest x- ray and CTA and exam, I question whether he is actually coughing up blood at all, although I do not doubt his sincerity. At this point in time, given that his vital signs are good and there are plans for him to be discharged, I think we can reevaluate him as an outpatient on whether or not a bronchoscopy is indicated going forward. -Continue umeclidiunium Apreciate input from pulmonary. (6) GERD (gastroesophageal reflux disease): Continue Nexium (7) Learning disability: Noted F/E/N - Heplock. Monitor electrolytes and replete as needed. Low Na, CC diet as tolerated ppx - Lovenox. Continue Nexium Total Time Total Time Spent Total Time Spent (In Minutes): 32 Total Time Includes: Examination of the Patient, Discharge Planning and Medication Reconciliation Discharge Plan Discharge Items Patient Disposition: Home - Self-Care Reason For Visit: HYPERTENSION Discharge Diagnosis: Hypertension Discharge Goals: Decrease discomfort Activity: Resume your previous activity Non-emergency contact: Primary Care Provider Call non-emergency contact if: you have any medication questions Follow-up/Referrals: Yuki Rosario MD [Family Provider] - 04/02/18 1:00 pm (Please, follow up at [facility] [place] Office with Dr. Yuki Rosario on SundayApril 02 at 1:00 pm. *If you need to change this appointment, call the office at [phone].) Corie Mazariegos PA-C [Physician] - 04/04/18 3:00 pm (Remember to bring your weight sheet and medication bottles to your appointment. ) Diet: Heart Healthy Add Provider Instructions: Mr. Huff, you were hospitalized with elevated blood pressure. This was due to not taking your home medicine on a daily basis. Please take these medicines every day. This will help keep you out of the hospital. You will followup with cardiology in 1 week. Followup with PCP and pulmonary in one week. Call your Primary Care doctor if any of the following symptoms or problems start or get worse: * Shortness of breath or difficulty breathing * Wake up at night short of breath * Chest pain * Cough * Swelling of your hands, feet, or legs * More fatigued or tired with your normal activity * Palpitations - sudden fast heart beats WEIGHT * Weigh yourself every morning after using the bathroom. * Use the same scale. * Wear the same amount of clothing. * Write your weight down on a chart. * Call your Primary Care doctor if you gain more than 2-3 pounds in 1-2 days. MEDICATIONS * Use this discharge instruction sheet for medication instructions. * Take your medications at the time your doctor ordered. * Do not skip a dose of your medicines. * If you miss a dose of medicine, take it as soon as possible, but DO NOT DOUBLE A DOSE. * Read your medicine information when you get home. * Know all of the side effects of your medicine. If in doubt, ask your pharmacist * Call your Primary Care doctor's office if you have any side effects. * Be sure all of your doctors know what medicine and herbs you take (including cold, flu, and herbal medicine). Take the following with you to your follow-up doctor appointments: * Weight Chart * Medication List * List of questions Do not drink excessive alcohol, beer or wine. Prescriptions: Continue aspirin [Aspirin Low Dose] 81 mg Tablet,Delayed Release (Dr/Ec) 81 mg PO QAM RF: 0 potassium chloride [Klor-Con M20] 20 mEq Tablet,Er Particles/Crystals 20 meq PO QAM RF: 0 metformin 1,000 mg Tablet 1,000 mg PO BIDM RF: 0 esomeprazole magnesium [Nexium] 40 mg Capsule,Delayed Release(Dr/Ec) 40 mg PO QAM RF: 0 insulin lispro protamin-lispro [Humalog Mix 50-50 KwikPen] 100 unit/mL (50-50 ) Insulin Pen 125 unit SUBCUT QPM RF: 0 insulin lispro protamin-lispro [Humalog Mix 50-50 KwikPen] 100 unit/mL (50-50 ) Insulin Pen 135 unit SUBCUT QAM RF: 0 cholecalciferol (vitamin D3) 2,000 unit Tablet 2,000 unit PO BID RF: 0 dulaglutide [Trulicity] 1.5 mg/0.5 mL Pen Injector 1.5 mg subcut WK RF: 0 furosemide 40 mg tablet 80 mg PO BID RF: 0 metolazone 2.5 mg tablet 2.5 mg PO DIRECTED RF: 0 sacubitril-valsartan 97-103 mg Tablet 1 tab PO BID RF: 0 umeclidinium 62.5 mcg/actuation blister with device 1 puff Inhalation DAILY RF: 0 metoprolol succinate 100 mg tablet extended release 24 hr 150 mg PO BID RF: 0 isosorbide mononitrate 60 mg tablet extended release 24 hr 60 mg PO BID RF: 0 hydralazine 50 mg tablet 50 mg PO TID RF: 0 Stand-Alone Forms: [facility] Discharge Orders: Discharge Order (Routine); Ordered 03/27/18 Ordered By: Shemar Sky Admission Data Admit Date/Time: 03/25/18 22:49 Attending Provider: Shemar Sky Admit Provider: Ciarra Burr Primary Care Provider: Markie Briceno Other Providers: Ciarra Burr ; Kan Byrd ; Rodney Murray Service: Telemetry Other Interventions: Discharge Summary Assessment (RN) Last Done: 03/27/18 12:46 DC Date/Time DO NOT enter until pt leaves facility: 03/27/18 14:16
== END 2018-03-27 14:16 | disposition home or self-care (01) ==
LOC: ED 16:52 → 2S 16:52 → SUATTDRO 22:49 → 2S 23:40

== ENCOUNTER 2018-05-23 06:47 | Inpatient (IN) ==
[2018-05-23] MEDS ORDERED: SODIUM CHLORIDE 0.9% 1000ML 1,000 ML IV SCH ×2 (08:00→08:15)
[2018-05-23] MEDS ORDERED: ONDANSETRON INJ 2 MG/ML 2 ML VIAL ONE (08:02)
--- NOTE | 2018-05-23 08:02 | History & Physical Bridge Note ---
Date of Service May 23, 2018 History & Physical Bridge Note I have examined the patient, reviewed the History & Physical and in the interval since the performance of the History & Physical I have noted the following changes of clinical significance: no changes noted
--- NOTE | 2018-05-23 08:03 | Pre Anesthesia Assessment ---
Date of Service May 23, 2018 Pre Sedation Assessment Vital Signs Temp Pulse Resp BP Pulse Ox 05/23/18 07:23 36.5 C 114 H 24 212/149 H 92 Cardiovascular RRR, no murmur, no edema + peripheral pulses normal Respiratory normal respiratory effort, lungs clear to auscultation Pre-Sedation Airway Assessment Smoking Status: Former smoker Hx Sleep Apnea: Yes Short, Thick Neck: Yes Thyromental Distance: > or= 3.5 Finger Breadths Oral Cavity: + WNL Mallampati Class: III ASA: ASA3 NPO Status Date of Last Intake of Fluids: 05/23/18 Time of Last Intake of Fluids: 00:00 Date of Last Intake of Solid Food: 05/23/18 Time of Last Intake of Solid Foods: 00:00 Notes The planned sedation has been discussed with the patient. Informed Consent was obtained. I have identified the patient, determined the appropriateness of sedation and have assessed the patient immediately prior to the procedure. All medicine(s) and interventions are by my order.
[2018-05-23] MEDS ORDERED: HydrALAZINE HCL 20 MG/ML VIAL ONE (08:58)
[2018-05-23] MEDS ORDERED: LIDOCAINE HCL VISCOUS SOLN 2% 15 ML UDC EXT ONE (09:07)
[2018-05-23] MEDS ORDERED: OXYMETAZOLINE 0.05% 30 ML BTL ONE (09:07)
[2018-05-23] MEDS ORDERED: MIDAZOLAM HCL 1 MG/ML 2ML VIAL IV ONE (09:08)
[2018-05-23] MEDS ORDERED: LIDOCAINE 4% INH SOLN 4 ML BTL INH SCH (09:15)
[2018-05-23] MEDS ORDERED: ONDANSETRON INJ 2 MG/ML 2 ML VIAL IV STA (10:15)
--- NOTE | 2018-05-23 10:43 | History & Physical Report ---
Date of Service May 23, 2018 Assessment & Plan (1) Hemoptysis: - Pt c/o this with Dr. Murray as outpatient for many month and was scheduled for routine bronchoscopy this morning. Due to uncontrolled HTN bronch was unable to be completed. Pt was administered versed preoperatively but there was also concern with bright red hemoptysis, and therefore hesitant to give the pt general anesthesia. - Check CTA to r/o PE with shortness of breath, and to evaluate hemoptysis - Consult thoracic surgery for recs (2) CHF (congestive heart failure): - Chronic systolic - Last ECHO was 01/21/18 which showed EF of 25-30% - Pt has been following with the heart failure clinic with Mariah Mazariegos - so will request that she follows with the patient during hospital stay - Will order 1x dose of Lasix 40 mg IV now - Continue home medications: Hydralazine 50 mg TID, Metoprolol 150 mg BID, Entresto 97/103 mg BID, Imdur 60 mg BID, Lasix 80 mg BID, Metolazone 2.5 mg MWF (3) Hypertensive urgency: - Admit to med surg with tele - BP with poorly controlled history - pt may be noncompliant with medication regimen due to learning disabilities (4) Hypertension: - Continue medications as above - IV lebatolol prn for tachycardia and elevated BP. Avoid hydralazine IV as pt is already taking this medication TID. (5) DM type 2 (diabetes mellitus, type 2): - Hold metformin - Will continue humalog 125 U QPM and 135 U QAM - ISS with accuchecks achs - Last a1c = 7.4 on 04/16/18 - HH/DM diet once awake enought to eat. (6) COPD (chronic obstructive pulmonary disease): - Continue umeclidinium inh Q4H prn (7) Back pain: - Chronic, weight loss encouraged. (8) Morbid obesity with body mass index of 50.0-59.9 in adult: - Diet and exercise encouraged - HH/DM diet during hospital stay (9) Learning disability: - Noted (10) Obstructive sleep apnea: - Pt does not wear cpap (11) GERD (gastroesophageal reflux disease): - Cont nexium, pt would benefit from reiteration of good dietary habits. - Consider temperature inspector consult for support (12) Obesity hypoventilation syndrome: Continue cpap HS - Weight loss and diet encouraged at beside (13) DVT prophylaxis: teds, scds, no chemical ppx due to hemoptysis History of Present Illness Chief Complaint: Referred by Dr. Murray from Same day surg for hemopysis and uncontrolled BP Primary Care Provider: Yuki Rosario MD Thi sis a 42 yo M with PMHx of systolic CHF, morbid obesity with BMI of 53.7, HTN poorly controlled, HLD, DM II, GERD, COPD, MARIELENA, and a learning disability who presents for worsening shortness of breath for routine bronchoscopy by Dr. Murray in same day surg this morning. Once pt was in preop, BP continued to be uncontrolled with administration of IV hydralazine, and pt had episode of hemoptysis with a small amount of bright red blood. Pt reports that hemoptysis has been going on for 2 weeks, and that he has significantly gotten more short of breath since then. He is unable to walk a flight of stair without significant difficulty now, and this has worsened over 1 week. He has chest pressure associated with this, but not sharp pain. He has difficulty providing specific events as he recieved Versed preoperatively and is drifting off to sleep if asked a longer question. Allergies Allergy/AdvReac Type Severity Reaction Status Date / Time ceftriaxone Allergy Severe SHORTNESS Verified 05/23/18 07:14 OF BREATH lidocaine Allergy Severe SHORTNESS Verified 05/23/18 07:14 OF BREATH, diaphoretic, hives procaine Allergy Severe SHORTNESS Verified 05/23/18 07:14 OF BREATH, diaphoretic, hives amoxicillin Allergy Intermediate HIVES/FACIAL Verified 05/23/18 07:14 SWELLING lisinopril Allergy Intermediate HIVES Verified 05/23/18 07:14 albuterol Allergy Mild proair Verified 05/23/18 07:14 "trouble taking breaths" clavulanic acid Allergy Unknown . Verified 05/23/18 07:14 acetaminophen AdvReac Mild NAUSEA Verified 05/23/18 07:14 Home Medications Home Medications Medication Instructions Recorded Confirmed Type Humalog Mix 50-50 KwikPen 125 unit SUBCUT QPM 11/28/17 05/23/18 History Humalog Mix 50-50 KwikPen 135 unit SUBCUT QAM 11/28/17 05/23/18 History aspirin [Aspirin Low Dose] 81 mg PO QAM 11/28/17 05/23/18 History cholecalciferol (vitamin D3) 2,000 unit PO BID 11/28/17 05/23/18 History esomeprazole magnesium [Nexium] 40 mg PO QAM 11/28/17 05/23/18 History metformin 1,000 mg PO DAILY 11/28/17 05/23/18 History potassium chloride [Klor-Con M20] 20 meq PO QAM 11/28/17 05/23/18 History furosemide 80 mg PO BID 01/20/18 05/23/18 History metolazone 2.5 mg PO DIRECTED 01/20/18 05/23/18 History sacubitril-valsartan 1 tab PO BID 03/08/18 05/23/18 History umeclidinium 1 puff INHALATION Q4H PRN 03/08/18 05/23/18 History hydralazine 50 mg PO TID 03/25/18 05/23/18 History isosorbide mononitrate 60 mg PO BID 03/25/18 05/23/18 History metoprolol succinate 150 mg PO BID 03/25/18 05/23/18 History semaglutide [Ozempic] 0.25 mg SUBCUT .EVERY Sunday04/24/18 05/23/18 History Past Med/Surg History Medical History Hypertension (Acute) CHF (congestive heart failure) (Acute) Hypertensive urgency (Acute) Hemoptysis GERD (gastroesophageal reflux disease) COPD (chronic obstructive pulmonary disease) (Chronic) DM type 2 (diabetes mellitus, type 2) Back pain (Acute) Obstructive sleep apnea (Acute 02/16/11) Morbid obesity with body mass index of 50.0-59.9 in adult Learning disability Cognitive impairment DM II (diabetes mellitus, type II), controlled Depression Fatty liver GERD (gastroesophageal reflux disease) HTN (hypertension) Medical non-compliance Morbid obesity with BMI of 50.0-59.9, adult Nonischemic cardiomyopathy EF 30-35% MARIELENA (obstructive sleep apnea) Does not comply with CPAP Surgical History History of cholecystectomy Family History Other No pertinent family history Social History Preferred Language: Belarusian Communication Ability: Effective Pull Through Hooker Required: No Beliefs That Will Affect Care: None marital status: Current Living Situation: Spouse current occupational status: unemployed Other Information That Helps Us Care for You: No Feels Safe at Home: Yes Safety Concerns: Feels Safe At This Time Smoking Status: Former smoker Hx Alcohol Use: Yes Hx Substance Use: No Review of Systems Constitutional: No fever, sweats or chills Eyes: No diplopia, no worsening or blurred vision ENT: normal hearing, no trouble swallowing Respiratory: As per HPI. Cardiovascular: + chest pressure and tightness, no chest pain or palpitations Abdomen: No pain, nausea, vomiting, diarrhea or constipation Musculoskeletal: No joint pain, calf pain, swelling Neurologic: No weakness, numbness/tingling, or balance problems Psychiatric: No anxiety or depression, Skin: No rash or itch Physical Exam Vital Signs (Past 24 Hours): Last Vital Signs Temp 36.6 C 05/23/18 10:04 Pulse 114 H 05/23/18 10:04 Resp 20 05/23/18 10:04 BP 178/138 H 05/23/18 10:04 Pulse Ox 94 05/23/18 10:04 Physical Exam: General: awake but drifts off to sleep easily, alert, no apparent distress, morbidly obese and lying on his left side Head: Normocephalic, atraumatic ENT: PERRL, EOMI, no pharyngeal exudate, mucous membranes moist Chest: Difficult to auscultate due to body habitus but seem clear throughout, no work of breathing, on 2 L, no accessory muscle use Cardiac: Regular rate and rhythm, + tachy with HR in 110s, no murmur, + mild JVD, normal peripheral pulses, good capillary refill Abdominal: NABS x 4 quadrants, soft, nontender to palpation, no rebound, guarding or tenderness Extremities: Normal inspection, no peripheral edema or erythema, calfs nontender to palpation Psych: Normal mood and affect Neuro: AAO x 3, strength intact bilaterally and related 5/5, no motor deficits, speech is clear, no peripheral sensory deficits Results & Data Diagnostic Findings Ct chest w/wo contrast ordered Code Status & VTE Plan Code Status Full code Supervising Physician Co-Signing Physician Notes Attending admission note & attestation- Pt seen/examined, chart reviewed, care plan d/w LELAND York. I agree w/ the caraballo components of her admission documentation. 42yo morbidly obese male with chronic systolic CHF, T2DM, noncompliance, learning disability -- presented for elective bronchoscopy today by Dr Murray due to intermittent hemoptysis of several-month duration. At time of presentation for bronch he was markedly hypertensive (systolic BPs reportedly 250) and there was concern of volume overload as well. Bronch canceled for today. During my assessment (patient was in his room on tele unit) he c/o headache -- bifrontal, mild photophobia, no nausea. Gets headaches weekly for years. Mom/dad both w/ headaches. Usually takes motrin at home for such. Denied any dyspnea or chest pain. BPs had improved by the time of my assessment. During my exam is systolic BP was 150s. PMH, PSH, allergies, meds, sochx, famhx, ros - reviewed vitals reviewed - BPs all high gen - NAD, morbidly obese neck - unable to assess for JVD due to neck size head - nontender to palpation over frontal sinuses mouth - MMM heart - RRR, s1 s2, no murmur lungs - decreased BS bases, maybe slight crackle bases abd - soft, probable periumbilical hernia, no HSM ext - 1+ edema b/l A/P: 1. hemoptysis - etiology uncertain. Nodules on most recent chest CT - etiology also uncertain. Dr Murray requested Dr Houston to perform his bronch. 2. possible acute/chronic systolic CHF - agree w/ extra IV lasix today. May need to change the standing lasix to IV as well (80mg BID). Cont usual heart meds. 3. headache - tension/migraine - motrin 800mg PO x 1 now. 4. hypertensive urgency - improving with reinstituting his home meds. Systolics already down to 150s -- acceptable improvement since earlier today. Would not be much more aggressive tonight since we have already lowered the BPs substantially through the day. other plans per Ms. York. Migue Packer MD (1) DM type 2 (diabetes mellitus, type 2) Diabetes mellitus complication detail: with other circulatory complications Diabetes mellitus complication status: with circulatory complication Diabetes mellitus longterm insulin use: with meterman use Qualified Code(s): E11.59 - Type 2 diabetes mellitus with other circulatory complications; Z79.4 - nursing home (current) use of insulin (2) CHF (congestive heart failure) Heart failure chronicity: acute on chronic Heart failure type: combined systolic and diastolic Qualified Code(s): I50.43 - Acute on chronic combined systolic (congestive) and diastolic (congestive) heart failure (3) COPD (chronic obstructive pulmonary disease) COPD type: unspecified COPD Qualified Code(s): J44.9 - Chronic obstructive pulmonary disease, unspecified (4) GERD (gastroesophageal reflux disease) Esophagitis presence: without esophagitis Qualified Code(s): K21.9 - Gastro- esophageal reflux disease without esophagitis (5) Hypertension Hypertension type: essential hypertension Qualified Code(s): I10 - Essential (primary) hypertension
[2018-05-23] MEDS ORDERED: DEXTROSE 50% 50 ML SYRINGE IV PRN (11:20)
[2018-05-23] MEDS ORDERED: ACETAMINOPHEN 325 MG TAB PO PRN (11:20)
[2018-05-23] MEDS ORDERED: GLUCAGON FOR INJ 1 MG VIAL SQ PRN (11:20)
[2018-05-23] MEDS ORDERED: CARBOHYDRATES FOR HYPOGLYCEMIA PO PRN (11:20)
[2018-05-23] MEDS ORDERED: GLUCOSE 40% GEL 15 GM TUBE PO PRN (11:20)
[2018-05-23] MEDS ORDERED: GLUCOSE 10 TABS/TUBE PO PRN (11:20)
[2018-05-23] MEDS ORDERED: ONDANSETRON INJ 2 MG/ML 2 ML VIAL IV PRN (11:20)
[2018-05-23] MEDS ORDERED: FUROSEMIDE 40 MG/4 ML VIAL IV STA (11:33)
[2018-05-23] MEDS ORDERED: METOPROLOL TARTRATE 1 MG/ML VIAL IV PRN (11:41)
[2018-05-23] MEDS ORDERED: FUROSEMIDE 40 MG in SYRINGE 0 ML IV ONE (11:45)
[2018-05-23] MEDS ORDERED: OPTIRAY 320 125ml IV PRN (12:26)
--- NOTE | 2018-05-23 12:34 | CT Scan Report ---
CT angio chest PE protocol CT DOSE: 784.06 mGy.cm HISTORY: Dyspnea. Chest pain. PE, SOB, hemoptysis TECHNIQUE: Multiaxial CT images of the chest were performed following the intravenous administration of contrast to evaluate the pulmonary arteries. Maximal intensity projection images were also obtaine d. A dose lowering technique was utilized adhering to the principles of ALARA. COMPARISON STUDY: 04/24/2018 FINDINGS: Study again is suboptimal due to respiratory and somatic artifacts. No evidence for major c entral pulmonary embolus. Unchanging 9 mm nodule right upper lobe. Additional nodule left upper lobe measuring 5 mm. Several smaller scattered nodular densities bilaterally. Prominence of pulmonary vasculature. No major filling defect. Bilateral pleural effusions.] Infiltrat maureen change right lung base. Potential underlying components of pulmonary edema. IMPRESSION: 1. No evidence for pulmonary embolus. 2. Small bilateral pleural effusions. 3. Hazy parenchymal infiltrate right base versus developing components of pulmonary edema. 4. Diffuse bilateral nodularity with close CT follow-up recommended The above report was generated using voice recognition software. It may contain grammatical, syntax or spelling errors. Electronically signed by: Cleveland Concepcion M.D. 05/23/2018 12:33 PM
[2018-05-23] MEDS: INSULIN ASPART 100 UNITS/ML 3 ML PEN SC SCH ×3 (13:13→20:16)
[2018-05-23] MEDS: metOLazone 2.5 MG TABLET PO SCH (13:14)
[2018-05-23] MEDS: HydrALAZINE TAB 50 MG TAB PO SCH ×2 (13:15→20:16)
[2018-05-23] MEDS: ONDANSETRON INJ 2 MG/ML 2 ML VIAL IV PRN (13:22)
[2018-05-23] MEDS: ACETAMINOPHEN 325 MG TAB PO PRN (13:22)
--- NOTE | 2018-05-23 15:17 | Consultation Report ---
DATE OF CONSULTATION: 05/23/2018 REASON FOR CONSULTATION: Hemoptysis. HISTORY OF PRESENT ILLNESS: This is a 42-year-old male that was admitted to the hospital today secondary to hemoptysis. The patient has a very complicated past medical history. The patient apparently has been complaining of gross hemoptysis for several months and he has been seen by Dr. Murray in the past for this. I reviewed Dr. Murray's outpatient records and he thought that the patient's hemoptysis may be in large part due to his underlying cardiac issues, specifically his CHF. Nonetheless, Dr. Murray had tentatively planned on performing a bronchoscopy to further evaluate for possible pulmonary causes of his hemoptysis. The patient presented for this procedure today; however, he was noted to have markedly uncontrolled hypertension and the procedure had to be aborted. The patient has subsequently been admitted and we have been asked to see the patient for further opinions. I questioned the patient on his hemoptysis and he notes that this has been going on for several months. It should be noted that the patient is not the best historian and it was very difficult to quantify the amount of blood he has been coughing and the patient could not really quantify it. He does state, however, that he does cough up a clot from time to time, but again could not quantitate this. He says that prior to his procedure this morning, he also had some underlying hemoptysis. The patient says that he did have pneumonia approximately 2 months ago, but was treated by his outpatient physicians for this. I asked him about possible exposures to chemicals, pesticides, fungus or asbestos and he says that he has not come in contact with any such substances. He does not have a DVT or PE and does not take any anticoagulants. It is noteworthy to mention the patient has chronic dyspnea on exertion and uses a wheelchair or motorized scooter to ambulate and even small amounts of ambulation, particularly to steps and inclines will make him get severely short of breath. He has not had any fever, shakes, or chills and denies chest pain at this time. It is noteworthy to mention that the patient does have systolic congestive heart failure with a known ejection fraction of 25-30% based on echocardiogram in January of 2018, global hypokinesis was noted on this echocardiogram and he is followed by the heart failure clinic at [facility]. At the time of my exam, the patient was resting in bed. He did not have any complaints of shortness of breath or chest pain while resting. He did have a basin next to his bedside where he did have some sputum that was blood tinged with a few pieces of clot that were smaller than a dime in size. Concerning other symptoms, he denies any recent falls or traumatic episodes. He denies any head injuries. He does not report any visual changes, tinnitus. No sore throat at this time is noted. Again, no fevers, shakes or chills are reported. He does have dyspnea on exertion. No chest pain is reported. He denies abdominal pain, nausea, vomiting. He denies any diarrhea. He has no previous history of DVT or PE to the best of his knowledge. He denies anxiety or depression, but does suffer from learning disability. PAST MEDICAL HISTORY: Includes the followin. History of systolic congestive heart failure as noted above. 2. Morbid obesity. 3. Hypertension. 4. Hyperlipidemia. 5. Nonischemic cardiomyopathy. 6. Diabetes. 7. GERD. 8. COPD. 9. Untreated obstructive sleep apnea. Review of pulmonary notes that the patient refuses to use CPAP or BiPAP at home. 10. Learning disability. PAST SURGICAL HISTORY: The patient says that he has had bronchoscopies in the past, but could not tell me where they were performed. ALLERGIES: THE PATIENT HAS LISTED ALLERGIES TO ROCEPHIN, LIDOCAINE, PROCAINE, AMOXICILLIN, LISINOPRIL, ALBUTEROL, AUGMENTIN, WELL TYLENOL. HOME MEDICATIONS: Include the followin. Aspirin 81 mg daily. 2. Vitamin D3 2000 units twice daily. 3. Nexium 40 mg daily. 4. Lasix 80 mg twice daily. 5. Humalog mix insulin, he takes 135 units in the morning, 125 units in the evening. 6. Hydralazine 50 mg 3 times daily. 7. Isosorbide mononitrate 60 mg twice daily. 8. Glucophage 1000 mg daily. 9. Metolazone 2.5 mg as directed by his cardiology physicians. 10. Metoprolol 150 mg twice daily. 11. Potassium chloride 20 mEq daily. 12. Sacubitril-valsartan 1 tablet twice daily. 13. Semaglutide 0.25 mg subcutaneous every Sunday. 14. Umeclidinium inhaler every 4 hours as needed. SOCIAL HISTORY: The patient says he is a former smoker. He says he only smoked briefly in his teenage years up to 1 pack of cigarettes per day, but has been in excess of 20 years and he quit this. He denies alcohol use and he formally worked in [employer]. FAMILY HISTORY: He says that heart troubles do run in his family, particularly with his mom and dad, but could not provide any more details concerning this. REVIEW OF SYSTEMS: As noted above. PHYSICAL EXAMINATION: VITAL SIGNS: The patient's blood pressure is currently 159/113, pulse is 120 and regular, respirations are 18, they are nonlabored. He is afebrile with a temperature of 36.6. Pulse ox is 92% on 3 liters. GENERAL: The patient is alert. He is oriented to time, place and person. He is noted to be morbidly obese. He is in no distress. HEENT: His head is atraumatic, normocephalic. Eyes: Pupils equal, round, react to light and accommodation. Extraocular motions are intact. Ears: Auditory acuity is grossly intact. Nose: Nasal patency was intact. Sinuses were nontender. Mouth: Has moist mucous membranes. NECK: Supple. I did not appreciate any tracheal shift. There is no stridor. CARDIOVASCULAR: Regular rate and rhythm. LUNGS: The patient's lungs did reveal slight decrease at the bases, likely due to his underlying body habitus, but no rales, rhonchi, wheezing or use of accessory muscles were noted. ABDOMEN: Rotund, but soft. EXTREMITIES: Revealed no cyanosis or clubbing. He had a small amount of edema noted bilaterally. He had palpable DP pulses bilaterally. NEUROLOGIC: Reveals he could move all 4 extremities and follow simple commands without noted focal deficits. DIAGNOSTIC DATA: Labs included a CBC yesterday on 05/22/2018 where his white blood cell count, hemoglobin and platelet count were within the normal range. Hematocrit was only slightly low at 41.4. Chemistry profile on 05/21/2018 showed sodium, potassium, BUN and creatinine were all within the normal range. Review of patient's ABGs were performed and the patient's most recent ABG available for my review was in March of this year and he was not noted to have CO2 retention. Of note, the patient had a QuantiFERON testing for tuberculosis in December of 2017, which were noted to be negative. I was also able to retrieve expectorated sputum specimen from December of 2017 where the patient was noted to have a methicillin-sensitive staph aureus. The patient's imaging was reviewed and he did undergo a CT scan of the chest today, after his bronchoscopy was aborted, this study revealed no evidence of pulmonary emboli. He had small bilateral pleural effusions and he also had a 9 mm right upper lobe nodule. No significant mediastinal adenopathy was noted. This was compared to CT scan in April 24 of this year which also revealed no PE or mediastinal adenopathy. IMPRESSION: A 42-year-old male with hemoptysis. PLAN: I discussed with the admitting service and they noted that consideration will be given to performing a bronchoscopy during this hospitalization if the patient's hypertensive urgency could be resolved and optimized. The case would be discussed with my attending physician, Dr. Houston and we will also coordinate with Dr. Mruray of pulmonary medicine as it is unclear if he is planning on performing a bronchoscopy himself or if he would like Dr. Houston to perform this procedure. This will be determined and ultimately performed once the patient is medically optimized.
[2018-05-23] MEDS ORDERED: Nursing to Pharmacy Communication ONE (15:42)
--- NOTE | 2018-05-23 15:46 | Cardiology Consultation ---
Date of Consultation May 23, 2018 Assessment & Plan (1) Hypertensive urgency: His poorly-controlled hypertension is likely due to the fact that he has not been compliant with his medications. According to providers at have cared for him in the past, often times he is admitted with hypertension and with resumption of his prescribed outpatient medications, his blood pressure improved significantly. Recommend resuming his home medications. Because metoprolol succinate and Entresto are not scheduled to start until this evening, nursing staff was asked to give this evening's dose is now. Will give intravenous diuretic therapy while hospitalized in place of oral Lasix. Low-sodium diet recommended. We discussed the importance of compliance. To help with compliance as an outpatient, please consider metoprolol succinate 300 mg once daily rather than b.i.d. dosing. (2) Chronic systolic CHF (congestive heart failure): It is difficult to know his volume status given morbid obesity. He does have lower extremity edema and he is not prerenal on most recent labs. Will replace oral Lasix with intravenous Lasix 80 mg twice daily. Can continue metolazone as scheduled. Maintained net negative fluid balance of 1-2 L negative per day. Monitor electrolytes and renal function daily or more if necessary. Daily weights and strict I&Os recommended. Continue to follow-up with heart failure program as an outpatient. (3) Nonischemic cardiomyopathy: Repeat echo scheduled later this month as an outpatient, which will help determine if he requires ICD for primary prevention according to records. He has already established care with electrophysiology. Continue high dose metoprolol succinate and Entresto. Disposition: Cardiology will continue to follow. Plan of care discussed with nursing staff as well as Dr. Quiroga of the primary hospitalist service. Thank you for allowing me to participate in the care of your patient. Please call for any other questions or concerns. Sincerely, Holger Rosen M.D. History of Present Illness Reason for Consultation: Dr. Packer Requesting Physician: Hypertension Attending Physician: Rodney Murray MD History of Present Illness Mr. Huff is a 42-year-old gentleman with a history significant for chronic systolic CHF, nonischemic cardiomyopathy, noncompliance with follow- up/diet/medical therapy, morbid obesity, sleep apnea (has refused treatment), hypertension, insulin-dependent diabetes, and dyslipidemia. He follows in the outpatient office with Dr. Veronica and also with the Heart failure program, Ms. Yair PA-C. He has been evaluated by electrophysiology, Dr. Polanco, in April of 2018 for consideration of ICD. The decision was made to hold off on ICD until repeat echocardiogram can be performed after optimal t herapy. This is scheduled at the end of this month, 06/11/2018. He apparently has nonischemic cardiomyopathy. He recalls undergoing cardiac catheterization in [place] at the age of 42 and was told that he did not have any coronary artery disease. He has struggled with low-sodium diet at home. He often eats restaurant food and enjoys eating sausage. He states that he does not salt his food however. He weighs himself daily and states that he has been able to keep his weight less than 370 lb but has gained 15-20 lb. He has chronic dyspnea with exertion which has progressed over time. He has improved with inhalers and also likely with diuresis. He has chronic orthopnea and sleeps in a recliner. He denies chest pain, syncope, near-syncope, palpitations. He does have chronic lower extremity edema. He was to undergo bronchoscopy today with Dr. Murray but his blood pressure was noted to be elevated. Bronchoscopy was scheduled due to hemoptysis. He apparently has had bronchoscopy appointment scheduled in the past but was unable to make the appointment due to transportation issues. Because of his hypertension, he was admitted. He admits that he does not take his medications as scheduled. His last dose of medications was yesterday morning doses. He has gone greater than 24 hours with his antihypertensive agents. He received metolazone, Lasix 40 mg IV x1, and hydralazine 50 mg so far today. His medications otherwise are scheduled to start this evening. His blood pressure has remained elevated but has improved somewhat. his blood pressure was as high as 223/160mmHg earlier this morning. He denies fever, nausea, diarrhea, melena, hematochezia, hematuria. He does have occasional vomiting after eating. He admits to having headache. Review of systems: As above. Review of systems otherwise negative/unremarkable. Family history: Mother had CAD diagnosed near 68 years of age. Father diagnosed with CAD near age of 60. Social history: Denies tobacco, alcohol, or drug abuse. He lives at home with his . No children. He is unaccompanied currently. Allergies Allergy/AdvReac Type Severity Reaction Status Date / Time ceftriaxone Allergy Severe SHORTNESS Verified 05/23/18 07:14 OF BREATH lidocaine Allergy Severe SHORTNESS Verified 05/23/18 07:14 OF BREATH, diaphoretic, hives procaine Allergy Severe SHORTNESS Verified 05/23/18 07:14 OF BREATH, diaphoretic, hives amoxicillin Allergy Intermediate HIVES/FACIAL Verified 05/23/18 07:14 SWELLING lisinopril Allergy Intermediate HIVES Verified 05/23/18 07:14 albuterol Allergy Mild proair Verified 05/23/18 07:14 "trouble taking breaths" clavulanic acid Allergy Unknown . Verified 05/23/18 07:14 acetaminophen AdvReac Mild NAUSEA Verified 05/23/18 07:14 Home Medications Home Medications Medication Instructions Recorded Confirmed Type Humalog Mix 50-50 KwikPen 125 unit SUBCUT QPM 11/28/17 05/23/18 History Humalog Mix 50-50 KwikPen 135 unit SUBCUT QAM 11/28/17 05/23/18 History aspirin [Aspirin Low Dose] 81 mg PO QAM 11/28/17 05/23/18 History cholecalciferol (vitamin D3) 2,000 unit PO BID 11/28/17 05/23/18 History esomeprazole magnesium [Nexium] 40 mg PO QAM 11/28/17 05/23/18 History metformin 1,000 mg PO DAILY 11/28/17 05/23/18 History potassium chloride [Klor-Con M20] 20 meq PO QAM 11/28/17 05/23/18 History furosemide 80 mg PO BID 01/20/18 05/23/18 History metolazone 2.5 mg PO DIRECTED 01/20/18 05/23/18 History sacubitril-valsartan 1 tab PO BID 03/08/18 05/23/18 History umeclidinium 1 puff INHALATION Q4H PRN 03/08/18 05/23/18 History hydralazine 50 mg PO TID 03/25/18 05/23/18 History isosorbide mononitrate 60 mg PO BID 03/25/18 05/23/18 History metoprolol succinate 150 mg PO BID 03/25/18 05/23/18 History semaglutide [Ozempic] 0.25 mg SUBCUT .EVERY Sunday04/24/18 05/23/18 History Patient History Medical History Hypertension (Acute) CHF (congestive heart failure) (Acute) Hypertensive urgency (Acute) Hemoptysis GERD (gastroesophageal reflux disease) COPD (chronic obstructive pulmonary disease) (Chronic) DM type 2 (diabetes mellitus, type 2) Back pain (Acute) Obstructive sleep apnea (Acute 02/16/11) Morbid obesity with body mass index of 50.0-59.9 in adult Learning disability Cognitive impairment DM II (diabetes mellitus, type II), controlled Depression Fatty liver GERD (gastroesophageal reflux disease) HTN (hypertension) Medical non-compliance Morbid obesity with BMI of 50.0-59.9, adult Nonischemic cardiomyopathy EF 30-35% MARIELENA (obstructive sleep apnea) Does not comply with CPAP Social History Preferred Language: Danish Communication Ability: Effective Heel Shaper Required: No Beliefs That Will Affect Care: None marital status: Current Living Situation: Spouse current occupational status: unemployed Other Information That Helps Us Care for You: No Feels Safe at Home: Yes Safety Concerns: Feels Safe At This Time Smoking Status: Former smoker Hx Alcohol Use: Yes Hx Substance Use: No Physical Exam Vital Signs (Past 24 Hours): Last Vital Signs Temp 36.6 C 05/23/18 10:30 Pulse 119 H 05/23/18 11:10 Resp 18 05/23/18 10:30 BP 159/113 H 05/23/18 11:10 Pulse Ox 92 05/23/18 10:30 Intake & Output 05/21/18 05/22/18 05/23/18 05/24/18 06:59 06:59 06:59 06:59 Intake Total 275 / 275 Balance 275 / 275 Weight 160.223 kg Physical Exam: Gen.: No acute distress. Alert. HEENT: Anicteric sclera. Neck: Thick neck. Cannot assess for JVD. No bruits. Normal carotid upstrokes bilaterally. Cardiac: PMI was nonpalpable. No ventricular heave. Regular but tachycardic. Normal S1-S2. No murmurs, rubs, or gallops. Pulmonary: Decreased breath sounds throughout but otherwise clear to auscultation bilaterally without wheezes, rales, or rhonchi. Abdomen: Obese. Soft, nontender, nondistended, with normoactive bowel sounds. No bruits noted. Extremities: 1+ radial pulses bilaterally. 1+ posterior tibialis pulses bilaterally. 1+ bilateral lower extremity edema. No cyanosis. Results & Data Laboratory Results Laboratory Results - last 24 hr 05/23/18 05/23/18 07:14 11:22 POC Glucose 160 H 139 H Labs 05/21/2018: BUN 13; creatinine 0.9; potassium 4 Diagnostic Findings telemetry personally reviewed: Sinus tachycardia. Echo 01/21/2018: Moderately to severely reduced LV systolic function. EF 25- 30%. Global hypokinesis. Mild biatrial dilation. No significant valvular abnormalities were reported. ECG personally reviewed: ECG 05/23/2018: Sinus tachycardia 105 bpm. Lateral T-wave inversion. Medications Administered Current Inpatient Medications Acetaminophen (Tylenol) 650 mg PO Q4H PRN PRN Reason: Moderate Pain Stop: 06/22/18 10:40 Last Admin: 05/23/18 13:22 Dose: 650 mg Documented by: Aspirin (Ecotrin Ectab) 81 mg PO QAM [facility] Stop: 06/23/18 08:59 Dextrose (Dextrose 50%) 25 - 50 ml IV UD PRN; Protocol PRN Reason: Hypoglycemia Protocol Stop: 06/22/18 11:19 Furosemide (Lasix) 80 mg PO BID17 [facility] Stop: 06/22/18 16:59 Glucagon (Glucagen) 1 mg SQ UD PRN; Protocol PRN Reason: Hypoglycemia Protocol Stop: 06/22/18 11:19 Glucose (Dex4 Glucose) 4 - 8 tabs PO UD PRN; Protocol PRN Reason: Hypoglycemia Protocol Stop: 06/22/18 11:19 Glucose (Glucose 40%) 15 - 30 gm PO UD PRN; Protocol PRN Reason: Hypoglycemia Protocol Stop: 06/22/18 11:19 Hydralazine HCl (Apresoline) 50 mg PO TID [facility] Stop: 06/22/18 13:59 Last Admin: 05/23/18 13:15 Dose: 50 mg Documented by: Furosemide 80 mg/ Syringe 8 mls @ 4 mls/min IV BID17 [facility] Stop: 06/22/18 16:59 Insulin Aspart (Novolog Flexpen) 0 units SC ACHS [facility] Stop: 06/22/18 11:29 Last Admin: 05/23/18 13:13 Dose: 5 units Documented by: Insulin Glargine (Lantus Solostar Pen) 20 units SC BID [facility] Stop: 06/22/18 20:59 Ioversol (Optiray 320 125ml) 120 ml IV ONCE PRN PRN Reason: Interaction Checking Stop: 05/27/18 12:25 Last Admin: 05/23/18 12:27 Dose: 120 ml Documented by: Isosorbide Mononitrate (Imdur Extended Rel) 60 mg PO BID [facility] Stop: 06/22/18 20:59 Metformin HCl (Glucophage) 1,000 mg PO DAILY [facility] Stop: 06/23/18 08:59 Metolazone (Zaroxolyn) 2.5 mg PO TuWeThFr@0830 [facility] Stop: 06/22/18 12:29 Last Admin: 05/23/18 13:14 Dose: 2.5 mg Documented by: Metoprolol Succinate (Toprol Xl) 150 mg PO BID [facility] Stop: 06/22/18 20:59 Metoprolol Tartrate (Lopressor) 5 mg IV Q5M PRN PRN Reason: Tachycardia Stop: 06/22/18 11:40 Miscellaneous (Order Awaiting Action) 1 ea N/A QS [facility] Stop: 06/26/18 07:59 Miscellaneous (Order Awaiting Action) 1 ea N/A QS [facility] Stop: 06/22/18 15:59 Miscellaneous (Carbohydrates For Hypoglycemia) 15 - 30 gm PO UD PRN PRN Reason: Hypoglycemia Treatment Stop: 06/22/18 11:19 Ondansetron HCl (Zofran) 4 mg IV Q4H PRN PRN Reason: Nausea And Vomiting Stop: 06/22/18 10:40 Last Admin: 05/23/18 13:22 Dose: 4 mg Documented by: Pantoprazole Sodium (Protonix) 40 mg PO QAM [facility] Stop: 06/23/18 08:59 Potassium Chloride (Klor-Con M20) 20 meq PO QAM [facility] Stop: 06/23/18 08:59 Sacubitril/Valsartan (Entresto 49/51mg) 2 tab PO BID [facility] Stop: 06/22/18 20:59 Vitamin D (Vitamin D3) 2,000 units PO BID [facility] Stop: 06/22/18 20:59
[2018-05-23] MEDS ORDERED: METOPROLOL SUCC 50MG EXT REL TAB PO SCH ×2 (16:00→21:00)
[2018-05-23] MEDS ORDERED: SACUBITRIL-VALSARTAN 49/51 MG TAB PO SCH (16:00)
[2018-05-23] MEDS ORDERED: FUROSEMIDE 80 MG TAB PO SCH (17:00)
[2018-05-23] MEDS: FUROSEMIDE 80 MG in SYRINGE 0 ML IV SCH (17:55)
[2018-05-23] MEDS ORDERED: IBUPROFEN 800 MG TAB PO STA (19:38)
[2018-05-23] MEDS: CHOLECALCIFEROL 1,000 UNITS TAB PO SCH (20:16)
[2018-05-23] MEDS: ISOSORBIDE MONO EXTENDED REL 60 MG TABCR PO SCH (20:16)
[2018-05-23] MEDS: INSULIN GLARGINE SOLOSTAR 100 UNITS/ML 3 ML PEN SC SCH (20:16)
--- NOTE | 2018-05-23 20:23 | Anesthesiology Consultation ---
Date of Service May 23, 2018 Assessment & Plan Chart Review Chart Review: Acceptable Risk for Surgery and Patient NOT seen in Pre Admission Testing Consults Requested none ASA ASA4 Proposed Anesthesia Anesthesia Type: General Anesthesia Line Insertion: Arterial line Risk / Benefits Reviewed With: PT / POA / Parent / Guardian, Accepts Plan and Informed Consent Obtained NPO Date Last Intake of Fluids: 05/22/18 Time Last Intake of Fluids: 19:30 Date Last Intake of Solids: 05/22/18 Time Last Intake of Solids: 23:00 History Surgery Operation Date: 05/23/18 08:00 Proposed Procedures p Bronchoscopy Radiology - Rodney Murray MD Operation Date: 05/24/18 07:30 Proposed Procedures p Bronchoscopy Respiratory - Alistair Houston MD, FACS Height/Weight Height: 5 ft 8 in Weight: 160.223 kg Allergies Allergy/AdvReac Type Severity Reaction Status Date / Time ceftriaxone Allergy Severe SHORTNESS Verified 05/23/18 07:14 OF BREATH lidocaine Allergy Severe SHORTNESS Verified 05/23/18 07:14 OF BREATH, diaphoretic, hives procaine Allergy Severe SHORTNESS Verified 05/23/18 07:14 OF BREATH, diaphoretic, hives amoxicillin Allergy Intermediate HIVES/FACIAL Verified 05/23/18 07:14 SWELLING lisinopril Allergy Intermediate HIVES Verified 05/23/18 07:14 albuterol Allergy Mild proair Verified 05/23/18 07:14 "trouble taking breaths" clavulanic acid Allergy Unknown . Verified 05/23/18 07:14 acetaminophen AdvReac Mild NAUSEA Verified 05/23/18 07:14 Medications Home Medications Medication Instructions Recorded Confirmed Last Taken Humalog Mix 50-50 KwikPen 125 unit SUBCUT QPM 11/28/17 05/23/18 05/22/18 07:00 Humalog Mix 50-50 KwikPen 135 unit SUBCUT QAM 11/28/17 05/23/18 05/22/18 07:00 aspirin [Aspirin Low Dose] 81 mg PO QAM 11/28/17 05/23/18 05/22/18 07:00 cholecalciferol (vitamin D3) 2,000 unit PO BID 11/28/17 05/23/18 05/22/18 07:00 esomeprazole magnesium [Nexium] 40 mg PO QAM 11/28/17 05/23/18 05/22/18 07:00 metformin 1,000 mg PO DAILY 11/28/17 05/23/18 05/22/18 07:00 potassium chloride [Klor-Con M20] 20 meq PO QAM 11/28/17 05/23/18 05/22/18 07:00 furosemide 80 mg PO BID 01/20/18 05/23/18 05/22/18 15:30 metolazone 2.5 mg PO DIRECTED 01/20/18 05/23/18 05/22/18 07:00 sacubitril-valsartan 1 tab PO BID 03/08/18 05/23/18 05/22/18 15:30 umeclidinium 1 puff INHALATION Q4H PRN 03/08/18 05/23/18 05/22/18 07:00 hydralazine 50 mg PO TID 03/25/18 05/23/18 05/22/18 15:30 isosorbide mononitrate 60 mg PO BID 03/25/18 05/23/18 05/22/18 15:30 metoprolol succinate 150 mg PO BID 03/25/18 05/23/18 05/22/18 15:30 semaglutide [Ozempic] 0.25 mg SUBCUT .EVERY Sunday04/24/18 05/23/18 Unknown Active Medications Generic Name Dose Route Start Last Admin Trade Name Freq PRN Reason Stop Dose Admin Acetaminophen 650 mg 05/23/18 10:41 05/23/18 13:22 Tylenol PO 06/22/18 10:40 650 mg Q4H PRN Administration Moderate Pain Hydralazine HCl 50 mg 05/23/18 14:00 05/23/18 20:16 Apresoline PO 06/22/18 13:59 50 mg TID SUKHWINDER Administration Furosemide 80 mg/ Syringe 8 mls @ 4 mls/min 05/23/18 17:00 05/23/18 17:55 IV 06/22/18 16:59 4 mls/min BID17 SUKHWINDER Administration Insulin Aspart 0 units 05/23/18 11:30 05/23/18 20:16 Novolog Flexpen SC 06/22/18 11:29 1 units ACHS SUKHWINDER Administration Insulin Glargine 20 units 05/23/18 21:00 05/23/18 20:16 Lantus Solostar Pen SC 06/22/18 20:59 20 units BID SUKHWINDER Administration Ioversol 120 ml 05/23/18 12:26 05/23/18 12:27 Optiray 320 125ml IV 05/27/18 12:25 120 ml ONCE PRN Administration Interaction Checking Isosorbide Mononitrate 60 mg 05/23/18 21:00 05/23/18 20:16 Imdur Extended Rel PO 06/22/18 20:59 60 mg BID SUKHWINDER Administration Metolazone 2.5 mg 05/23/18 12:30 05/23/18 13:14 Zaroxolyn PO 06/22/18 12:29 2.5 mg TuWeThFr@0830 SUKHWINDER Administration Metoprolol Tartrate 5 mg 05/23/18 11:41 05/23/18 17:57 Lopressor IV 06/22/18 11:40 5 mg Q5M PRN Administration Tachycardia Miscellaneous 1 ea 05/23/18 16:00 05/23/18 16:12 Order Awaiting Action N/A 06/22/18 15:59 Not Given QS SUKHWINDER Ondansetron HCl 4 mg 05/23/18 10:41 05/23/18 13:22 Zofran IV 06/22/18 10:40 4 mg Q4H PRN Administration Nausea And Vomiting Vitamin D 2,000 units 05/23/18 21:00 05/23/18 20:16 Vitamin D3 PO 06/22/18 20:59 2,000 units BID SUKHWINDER Administration Past Medical History Medical History Hypertension (Acute) CHF (congestive heart failure) (Acute) Hypertensive urgency (Acute) Hemoptysis GERD (gastroesophageal reflux disease) COPD (chronic obstructive pulmonary disease) (Chronic) DM type 2 (diabetes mellitus, type 2) Back pain (Acute) Obstructive sleep apnea (Acute 02/16/11) Morbid obesity with body mass index of 50.0-59.9 in adult Learning disability Cognitive impairment DM II (diabetes mellitus, type II), controlled Depression Fatty liver GERD (gastroesophageal reflux disease) HTN (hypertension) Medical non-compliance Morbid obesity with BMI of 50.0-59.9, adult Nonischemic cardiomyopathy EF 30-35% MARIELENA (obstructive sleep apnea) Does not comply with CPAP Past Family History Family History Other No pertinent family history Past Surgical History Surgical History History of cholecystectomy Past Anesthesia History No Hx of Anesthesia Complications and No Family Hx of Anesthesia Complications History of PONV No Motion Sickness Screening History of Motion Sickness: No Social History Smoking Status: Former smoker tobacco type: cigarettes Smoking cigarettes per day: reports he quit smoking at 14 years old Do You Dip or Chew Tobacco: No Hx Alcohol Use: Yes Alcohol type: beer and wine alcohol intake frequency: holidays/special occasions only Hx Substance Use: No substance use type: does not use Exercise / Class Metabolic Activity III < 4 Walking/Shop/Light housework Physical Exam Vital Signs Last Vital Signs Temp 36.5 C 05/23/18 19:33 Pulse 88 05/23/18 19:33 Resp 20 05/23/18 19:33 BP 158/112 H 05/23/18 19:33 Pulse Ox 95 05/23/18 19:33 Constitutional + morbidly obese ENMT Mouth: + poor dentition Thyromental Distance: > or= 3.5 Finger Breadths Mallampati Class: III Neck normal visual inspection, + tracheal deviation and + thick neck; neck extension not limited Respiratory normal respiratory effort Auscultation: + diminished lung sounds Cardiovascular Rate/Rhythm: regular rate and regular rhythm Heart Sounds: no murmur Vessels: no carotid bruit Musculoskeletal Spine: normal cervical ROM Neurologic moves all extremities Motor/Sensory: no sensory deficit Psychiatric Orientation: alert and oriented x 3 Testing Electrocardiogram Date: 05/23/18 Findings: + ST @ (at 105/min;LAE;LVH;T wave abnormality;consider lateral ischemia) Echocardiogram Date: 07/30/17 EF: 30 LV Function: dysfunctional (LV mildly dilated) RWMA: + hypokinetic (moderate global HK) Other Findings: + atrial enlargement (LA moderately enlarged), + LVH and + diastolic dysfunction (grade 3 restrictive diastolic dysfunction) Other Testing CT angio Neck-02/06/2018-Neg.carotids 05/23/2018-CT angio chest-small bilat. pleural effusions;diffuse bilateral nodularity Laboratory Results 05/23/18 05/23/18 16:42 11:22 POC Glucose 145 H 139 H
[2018-05-23] MEDS ORDERED: [UNRECOGNIZED DRUG - OTHER] SQ SCH (21:00)
[2018-05-23] MEDS ORDERED: INSULIN GLARGINE SOLOSTAR 100 UNITS/ML 3 ML PEN SC SCH (21:00)
--- NOTE | 2018-05-24 01:44 | Consultation Report ---
DATE OF CONSULTATION: 05/23/2018 PULMONARY MEDICINE CONSULTATION REASON FOR CONSULTATION: Hemoptysis. HISTORY OF PRESENT ILLNESS: A 42-year-old massively obese white male who was scheduled to undergo a fiberoptic bronchoscopy this morning with symptoms of long-term hemoptysis. The patient has a past history of chronic systolic CHF, morbid obesity with a BMI over 53, hypertensive cardiovascular disease that has been poorly controlled, dyslipidemia, diabetes mellitus type 2, GERD, COPD, and severe obstructive sleep apnea with patient intolerant of BiPAP or CPAP therapy. The patient has a learning disability as does his and after numerous outpatient visits with complaints each time of hemoptysis, the patient was scheduled for bronchoscopic evaluation. He was to be done under moderate conscious sedation, but upon arrival to the same day surgery region, he complained of severe orthopnea, difficulty lying on a gurney even with 3-4 pillows and a wedge pillow. He was taken to the bronchoscopy suite, but was unable to get comfortable with the low level of sedation that I felt comfortable utilizing which was 2 mg of IV Versed. I attempted the bronchoscopy through the right and left naris, but patient did not appear to comprehend the procedure despite numerous attempts at explanation and did not tolerate the procedure. His blood pressure was markedly elevated in a malignant way and he was given 10 mg IV hydralazine and a decision was made to cancel the procedure and send him back to the same day surgery unit. I decided to admit him on to the hospitalist service for better control of his hypertension and for consideration of bronchoscopy while intubated and receiving mechanical ventilator assistance. Dr. Houston was consulted. The patient was seen by Dr. Rosen today as requested by the hospitalist. The patient states he has been compliant with his medication, but that is unlikely. He has been on metoprolol and Entresto as well as diuretic. Difficult to assess his volume status given his morbid obesity and Dr. Rosen was to adjust his dosing and the use of metolazone as needed. For details of his cardiac history, I refer you to his notation and my previous pulmonary consultation last hospitalization. For details of past medical history, medications, family and social history, I refer you to current and past record. PHYSICAL EXAMINATION: GENERAL: Morbidly obese white male appearing orthopneic and complaining bitterly of being in discomfort. VITAL SIGNS: His blood pressure was 164/126, pulse 108 and regular, respiratory rate 20, temperature 36.4, O2 sat 95% on room air. SKIN: Warm and dry. HEENT: Atraumatic, normocephalic. PERRLA. EOMI. Conjunctivae pale. Sclerae nonicteric. Fundi poorly visualized. NECK: Neck veins are not distended at 45 degrees. No lymphadenopathy in the supra or infraclavicular areas. LUNGS: Distant to P and A, some fine rales at the bases. CARDIAC: Regular rate and rhythm. I did not appreciate a gallop. ABDOMEN: Soft, protuberant. EXTREMITIES: 2+ pitting edema, no clubbing or cyanosis. LABORATORY DATA: White count 6400, H and H 14 and 41, BUN 13, creatinine 0.9. CTA done today shows no evidence of pulmonary thromboembolic disease, small bilateral pleural effusions and a hazy parenchymal infiltrate, right base. Diffuse bilateral nodularity with multiple subcentimeter nodules seen that are unchanged when compared to previous CT scan of 04/24/2018. OVERALL ASSESSMENT AND PLAN: A 42-year-old morbidly obese white male with complex medical history with reported history of recurrent bouts of hemoptysis intolerant to outpatient bronchoscopic evaluation to be done under moderate conscious sedation. Was admitted with poorly controlled hypertension. I refer you to Dr. Rosen's notation and current orders. Dr. Houston has been consulted to consider bronchoscopic evaluation while having complete control of patient's airway and the use of mechanical ventilator assistance as per anesthesia. Suspect the hemoptysis if real and not spurious secondary to pulmonary edema and left ventricular decompensation and malignant hypertension.
--- NOTE | 2018-05-24 01:51 | Consultation Report ---
DATE OF CONSULTATION: 05/23/2018 Mr. Huff is a mentally challenged 42-year-old morbidly obese male who has been complaining of hemoptysis for a long period of time, was seen by Dr. Murray in the office. He is short of breath and states that he is quite weak and can hardly walk. He is 5 feet 8 inches and weighs about 370 pounds. He is quite deconditioned. He states that his legs are so weak that he really had difficulty walking at home. He states that he has been coughing up blood and indeed had some blood-streaked sputum which he had collected over the course of the day. It was not a massive amount. There was no bright red blood that I saw. He denies epistaxis. States his throat does hurt. Dr. Murray attempted to do a bronchoscopy today, but the patient became markedly hypertensive (he has a hypertensive cardiomyopathy due to noncompliance with his medications). He has a depressed left ventricular ejection fraction. The patient became hypertensive and then had some hemoptysis and it was elected to proceed with cancellation of this elective outpatient bronchoscopy and admit the patient for better blood pressure control and to assess for bleeding. Really he is not bleeding very much. We had a long discussion about this. I am going to proceed with a bronchoscopy under general anesthesia tomorrow. For specifics of this patient's consultation, please refer to Mr. Boby Tripp's note.
[2018-05-24 06:53] LABS: Hematocrit (blood only) 43.4 % (42-52); Mean Corpuscular Hgb Conc 34.6 g/dL (32-36); Mean Corpuscular Volume 86.1 fL (80-100); Mean Platelet Volume 10.2 fL (7.4-10.4); Platelet Count 173 K/uL (130-400); RDW Coefficient of Variation 14.8 % (11.5-14.5); RDW Standard Deviation 46.2 fL (36.4-46.3); Red Blood Count 5.04 M/uL (4.7-6.1)
[2018-05-24 07:19] LABS: Albumin Level 3.4 gm/dl (3.4-5.0); BUN Creatinine Ratio 12.7 (10-20); Calcium 8.9 mg/dl (8.5-10.1); Creatinine Clr Calc Pharmacy 133.5 ml/min; Est GFR (African American) 99.4; Est GFR (Non-African American) 85.8; Potassium 3.5 mmol/L (3.5-5.1)
[2018-05-24 07:22] LABS: Albumin Globulin Ratio 0.9 (0.9-2); Bilirubin,Total 1.1 mg/dl (0.2-1); Globulin 3.6 gm/dl (2.5-4.0); Phosphorus 4.8 mg/dl (2.5-4.9)
[2018-05-24] MEDS: INSULIN ASPART 100 UNITS/ML 3 ML PEN SC SCH ×4 (09:00→19:43)
[2018-05-24] MEDS ORDERED: [UNRECOGNIZED DRUG - OTHER] SQ SCH (09:00)
[2018-05-24] MEDS ORDERED: METFORMIN HCL 500 MG TAB PO SCH (09:00)
[2018-05-24] MEDS: HydrALAZINE TAB 50 MG TAB PO SCH ×4 (09:01→19:44)
[2018-05-24] MEDS: metOLazone 2.5 MG TABLET PO SCH (09:01)
[2018-05-24] MEDS: CHOLECALCIFEROL 1,000 UNITS TAB PO SCH ×3 (09:01→19:45)
[2018-05-24] MEDS: POTASSIUM CHLORIDE 20 MEQ TABCR PO SCH ×2 (09:01→11:04)
[2018-05-24] MEDS: PANTOprazole 40 MG TAB PO SCH ×2 (09:01→11:04)
[2018-05-24] MEDS: ISOSORBIDE MONO EXTENDED REL 60 MG TABCR PO SCH ×3 (09:02→19:43)
[2018-05-24] MEDS: FUROSEMIDE 80 MG in SYRINGE 0 ML IV SCH ×2 (09:03→17:57)
[2018-05-24] MEDS: ASPIRIN 81 MG ECTAB PO SCH ×2 (09:04→11:04)
[2018-05-24] MEDS: SACUBITRIL-VALSARTAN 49/51 MG TAB PO SCH ×3 (09:04→19:44)
[2018-05-24] MEDS: INSULIN GLARGINE SOLOSTAR 100 UNITS/ML 3 ML PEN SC SCH ×2 (09:04→19:43)
--- NOTE | 2018-05-24 10:41 | Cardiology Progress Note ---
Date of Service May 24, 2018 Assessment & Plan (1) Hypertensive urgency: His poorly-controlled hypertension is likely due to the fact that he has not been compliant with his medications. Blood pressure has normalized by resuming his previously scheduled outpatient medications. Noncompliance was the cause for his hypertension. Continue current regimen but will decrease metoprolol succinate to 150 mg once daily due to sinus bradycardia in the 40s. It does not appear as though he was taking twice daily dosing, nor is it clear how often he was taking the medication to begin with. Otherwise, continue current regimen. Low-sodium diet recommended. We discussed the importance of compliance. (2) Chronic systolic CHF (congestive heart failure): It is difficult to know his volume status given morbid obesity. He does have lower extremity edema and he is not prerenal on most recent labs. Continue intravenous Lasix 80 mg twice daily until ready for discharge or until there is evidence of azotemia or electrolyte imbalance. Can continue metolazone as scheduled. Monitor electrolytes and renal function daily or more if necessary. Daily weights and strict I&Os recommended. Continue to follow-up with heart failure program as an outpatient. He did not present with acute decompensation of his heart failure. (3) Nonischemic cardiomyopathy: Repeat echo scheduled later this month as an outpatient, which will help determine if he requires ICD for primary prevention according to records. He has already established care with electrophysiology. Continue metoprolol succinate and Entresto. Metoprolol succinate was reduced to 150 mg daily due to sinus bradycardia in the 40s. Disposition: From a cardiology perspective, he can be further managed as an outpatient and does not require inpatient stay. He is undergoing a bronchoscopy later today and will defer to pulmonology/thoracic and primary hospitalist service. I will be away from the hospital for the next 2 days. Please call on-c all beveling machine operator for any question or concerns. Plan of care communicated with Dr. Packer a primary hospitalist service. Subjective He denies chest pain, shortness of breath, syncope, near syncope, palpitations. He believes that his edema has improved. He still has a headache and points to his frontal sinus area. The headache persists despite normalization of his blood pressure. He continues to have blood-tinged sputum when coughing. He is scheduled for a bronchoscopy today. Unfortunately, nursing staff has reported that he has refused to take his morning medications. She will attempt once more to give him his morning medications, specifically metoprolol. Review of systems: As above. Physical Exam Vital Signs (Past 24 Hours): Last Vital Signs Temp 36.4 C L 05/24/18 07:49 Pulse 80 05/24/18 07:49 Resp 20 05/24/18 07:49 BP 137/96 05/24/18 07:49 Pulse Ox 97 05/24/18 07:49 Intake & Output 05/22/18 05/23/18 05/24/18 05/25/18 06:59 06:59 06:59 06:59 Intake Total 515 / 515 Output Total 2600 / 2600 Balance -2084 / -2084 Weight 157.1 kg Physical Exam: Gen.: No acute distress. Alert. HEENT: Anicteric sclera. Neck: Thick neck. Cannot assess for JVD. Cardiac: Regular but tachycardic. Normal S1-S2. No murmurs, rubs, or gallops. Pulmonary: Decreased breath sounds throughout but otherwise clear to auscultation bilaterally without wheezes, rales, or rhonchi. Abdomen: Obese. Soft, nontender, nondistended, with normoactive bowel sounds. No bruits noted. Extremities: Trace to 1+ bilateral lower extremity edema. No cyanosis. Results & Data Laboratory Results Laboratory Results - last 24 hr 05/23/18 05/23/18 05/23/18 11:22 16:42 20:11 WBC RBC Hgb Hct MCV MCH MCHC RDW Std Deviation RDW Coeff of Zoltan Plt Count MPV Sodium Potassium Chloride Carbon Dioxide Anion Gap BUN Creatinine Est Cr Clr Drug Dosing Est GFR ( Amer) Est GFR (Non-Af Amer) BUN/Creatinine Ratio Glucose POC Glucose 139 H 145 H 170 H Calcium Phosphorus Magnesium Total Bilirubin AST ALT Alkaline Phosphatase Total Protein Albumin Globulin Albumin/Globulin Ratio 05/24/18 05/24/18 05/24/18 06:29 06:29 07:14 WBC 8.30 RBC 5.04 Hgb 15.0 Hct 43.4 MCV 86.1 MCH 29.8 MCHC 34.6 RDW Std Deviation 46.2 RDW Coeff of Zoltan 14.8 H Plt Count 173 MPV 10.2 Sodium 139 Potassium 3.5 Chloride 102 Carbon Dioxide 30 Anion Gap 7.0 BUN 14 Creatinine 1.07 Est Cr Clr Drug Dosing 133.5 Est GFR ( Amer) 99.4 Est GFR (Non-Af Amer) 85.8 BUN/Creatinine Ratio 12.7 Glucose 133 H POC Glucose 128 H Calcium 8.9 Phosphorus 4.8 Magnesium 2.0 Total Bilirubin 1.1 H AST 16 ALT 26 Alkaline Phosphatase 88 Total Protein 7.0 Albumin 3.4 Globulin 3.6 Albumin/Globulin Ratio 0.9 Diagnostic Findings Telemetry personally reviewed: Sinus rhythm and at times sinus bradycardia with heart rates in the 40s. Medications Administered Current Inpatient Medications Acetaminophen (Tylenol) 650 mg PO Q4H PRN PRN Reason: Moderate Pain Stop: 06/22/18 10:40 Last Admin: 05/23/18 13:22 Dose: 650 mg Documented by: Aspirin (Ecotrin Ectab) 81 mg PO QAM COUNT INCLUDES THE [facility] Stop: 06/23/18 08:59 Dextrose (Dextrose 50%) 25 - 50 ml IV UD PRN; Protocol PRN Reason: Hypoglycemia Protocol Stop: 06/22/18 11:19 Furosemide (Lasix) 80 mg PO BID17 COUNT INCLUDES THE [facility] Stop: 06/22/18 16:59 Glucagon (Glucagen) 1 mg SQ UD PRN; Protocol PRN Reason: Hypoglycemia Protocol Stop: 06/22/18 11:19 Glucose (Dex4 Glucose) 4 - 8 tabs PO UD PRN; Protocol PRN Reason: Hypoglycemia Protocol Stop: 06/22/18 11:19 Glucose (Glucose 40%) 15 - 30 gm PO UD PRN; Protocol PRN Reason: Hypoglycemia Protocol Stop: 06/22/18 11:19 Hydralazine HCl (Apresoline) 50 mg PO TID COUNT INCLUDES THE [facility] Stop: 06/22/18 13:59 Last Admin: 05/23/18 20:16 Dose: 50 mg Documented by: Furosemide 80 mg/ Syringe 8 mls @ 4 mls/min IV BID17 COUNT INCLUDES THE [facility] Stop: 06/22/18 16:59 Last Admin: 05/24/18 09:03 Dose: 4 mls/min Documented by: Insulin Aspart (Novolog Flexpen) 0 units SC ACHS COUNT INCLUDES THE [facility] Stop: 06/22/18 11:29 Last Admin: 05/24/18 09:00 Dose: Not Given Documented by: Insulin Glargine (Lantus Solostar Pen) 20 units SC BID COUNT INCLUDES THE [facility] Stop: 06/22/18 20:59 Last Admin: 05/24/18 09:04 Dose: 20 units Documented by: Ioversol (Optiray 320 125ml) 120 ml IV ONCE PRN PRN Reason: Interaction Checking Stop: 05/27/18 12:25 Last Admin: 05/23/18 12:27 Dose: 120 ml Documented by: Isosorbide Mononitrate (Imdur Extended Rel) 60 mg PO BID COUNT INCLUDES THE [facility] Stop: 06/22/18 20:59 Last Admin: 05/23/18 20:16 Dose: 60 mg Documented by: Metformin HCl (Glucophage) 1,000 mg PO DAILY COUNT INCLUDES THE [facility] Stop: 06/23/18 08:59 Metolazone (Zaroxolyn) 2.5 mg PO TuWeThFr@0830 COUNT INCLUDES THE [facility] Stop: 06/22/18 12:29 Last Admin: 05/24/18 09:01 Dose: 2.5 mg Documented by: Metoprolol Succinate (Toprol Xl) 150 mg PO DAILY COUNT INCLUDES THE [facility] Stop: 06/23/18 10:44 Metoprolol Tartrate (Lopressor) 5 mg IV Q5M PRN PRN Reason: Tachycardia Stop: 06/22/18 11:40 Last Admin: 05/23/18 17:57 Dose: 5 mg Documented by: Miscellaneous (Order Awaiting Action) 1 ea N/A QS COUNT INCLUDES THE [facility] Stop: 06/26/18 07:59 Miscellaneous (Order Awaiting Action) 1 ea N/A QS COUNT INCLUDES THE [facility] Stop: 06/22/18 15:59 Last Admin: 05/24/18 09:00 Dose: Not Given Documented by: Miscellaneous (Carbohydrates For Hypoglycemia) 15 - 30 gm PO UD PRN PRN Reason: Hypoglycemia Treatment Stop: 06/22/18 11:19 Ondansetron HCl (Zofran) 4 mg IV Q4H PRN PRN Reason: Nausea And Vomiting Stop: 06/22/18 10:40 Last Admin: 05/23/18 13:22 Dose: 4 mg Documented by: Pantoprazole Sodium (Protonix) 40 mg PO QAM COUNT INCLUDES THE [facility] Stop: 06/23/18 08:59 Potassium Chloride (Klor-Con M20) 20 meq PO QAM COUNT INCLUDES THE [facility] Stop: 06/23/18 08:59 Sacubitril/Valsartan (Entresto 49/51mg) 2 tab PO BID COUNT INCLUDES THE [facility] Stop: 06/22/18 20:59 Vitamin D (Vitamin D3) 2,000 units PO BID COUNT INCLUDES THE [facility] Stop: 06/22/18 20:59 Last Admin: 05/23/18 20:16 Dose: 2,000 units Documented by:
[2018-05-24] MEDS: METOPROLOL SUCC 50MG EXT REL TAB PO SCH (11:07)
[2018-05-24] MEDS: ONDANSETRON INJ 2 MG/ML 2 ML VIAL IV PRN (11:24)
[2018-05-24] MEDS: ACETAMINOPHEN 325 MG TAB PO PRN (11:24)
[2018-05-24] MEDS ORDERED: fentaNYL citrate 100 MCG/2 ML VIAL ONE (12:47)
[2018-05-24] MEDS ORDERED: PROPOFOL IV EMULSION 10 MG/ML 20 ML VIAL IV ONE (12:47)
[2018-05-24] MEDS ORDERED: DEXAMETHASONE SOD INJ 4 MG/ML VIAL ONE (12:47)
[2018-05-24] MEDS ORDERED: LIDOCAINE HCL 2% 2 ML VIAL/AMP(20MG/ML) INFIL ONE (12:47)
[2018-05-24] MEDS ORDERED: MIDAZOLAM HCL 1 MG/ML 2ML VIAL ONE (12:47)
[2018-05-24] MEDS ORDERED: ONDANSETRON INJ 2 MG/ML 2 ML VIAL ONE (12:47)
[2018-05-24] MEDS ORDERED: fentaNYL citrate 100 MCG/2 ML VIAL IV PRN (13:19)
[2018-05-24] MEDS ORDERED: ONDANSETRON INJ 2 MG/ML 2 ML VIAL IV PRN (13:19)
[2018-05-24] MEDS ORDERED: ATROPINE SULFATE 0.1 MG/ML 10ML SYR IV PRN (13:19)
[2018-05-24] MEDS ORDERED: LABETALOL HCL IV 5 MG/ML 20ML IV PRN (13:19)
--- NOTE | 2018-05-24 13:47 | History & Physical Bridge Note ---
Date of Service May 24, 2018 History & Physical Bridge Note I have examined the patient, reviewed the History & Physical and in the interval since the performance of the History & Physical I have noted the following changes of clinical significance: no changes noted
--- NOTE | 2018-05-24 14:20 | Post Operative Brief Note ---
Immediate Post Op Note v1 Date of Surgery May 24, 2018 Pre & Post Diagnosis Operation Date: 05/24/18 08:00 Pre-Op Diagnosis: hemoptysis Post-Op Diagnosis: hemoptysis Procedure Operation Date: 05/24/18 16:10 Fiberoptic bronchoscopy under general anesthesia Surgeon Alistair Houston MD, FACS Supervisor Shuttle Preparation Reina MCKEON Estimated Blood Loss 0 Findings Consistent with Post-Op Diagnosis
[2018-05-24] MEDS ORDERED: CLINDAMYCIN 900 MG in DEXTROSE 5% 100 ML IV SCH (14:30)
--- NOTE | 2018-05-24 14:55 | Anesthesiology Progress Note ---
Date of Service May 24, 2018 Anesthesia Post Procedure Vital Signs Vital Signs: Temp Pulse Pulse Pulse Resp BP BP 05/24/18 12:54 36.6 C 77 18 05/24/18 11:02 36.4 C L 86 16 05/24/18 07:49 36.4 C L 80 20 05/24/18 04:11 36.4 C L 51 L 18 111/68 05/23/18 23:50 36.4 C L 75 22 142/84 H 05/23/18 21:37 80 05/23/18 19:33 36.5 C 88 20 05/23/18 17:57 93 H 178/141 H 05/23/18 17:49 05/23/18 16:00 105 H 05/23/18 15:54 36.4 C L 108 H 20 BP BP Pulse Ox 05/24/18 12:54 110/66 97 05/24/18 11:02 129/86 95 05/24/18 07:49 137/96 97 05/24/18 04:11 95 05/23/18 23:50 94 05/23/18 21:37 147/97 H 05/23/18 19:33 158/112 H 95 05/23/18 17:57 05/23/18 17:49 178/141 H 05/23/18 16:00 05/23/18 15:54 164/126 H 154/118 H 95 Pain Intensity Bilateral Chest: Pain Intensity: 7 Bilateral Head: Pain Intensity: 9 Notes Mental Status: alert / awake / arousable Patient Amnestic to Procedure: Yes Nausea / Vomiting: adequately controlled Pain: adequately controlled Airway Patency, RR, SpO2: stable & adequate BP & HR: stable & adequate Hydration State: stable & adequate Anesthetic Complications: no major complications apparent
--- NOTE | 2018-05-24 15:15 | XRay Report ---
XR chest 1V portable CLINICAL HISTORY: Status post fiberoptic bronchoscopy COMPARISON STUDY: 04/24/2018 FINDINGS: The heart remains enlarged. There is no focal pulmonary consolidation. There are no pleural effusions. No pneumothorax is visualized.[ IMPRESSION: 1. Stable cardiomegaly 2. No evidence of focal pulmonary consolidation 3. No evidence of pneumothorax Electronically signed by: Garrett Muniz M.D. 05/24/2018 3:13 PM
--- NOTE | 2018-05-24 21:03 | Hospitalist Progress Note ---
Date of Service May 24, 2018 Assessment & Plan (1) Hemoptysis: resolved. s/p bronch today - no source for hemoptysis. CTA chest w/o source for hemoptysis. etiology? intermittent bronchitis or pulm edema? nosebleeding? other? monitor. (2) CHF (congestive heart failure): acute/chronic systolic CHF. cont IV lasix until BUN and Cr rise. continue outpatient meds including Hydralazine 50 mg TID, Metoprolol 150 mg BID, Entresto 97/103 mg BID, Imdur 60 mg BID. (3) Hypertensive urgency: resolved. suspected to be due to noncompliance. (4) Hypertension: controlled w/ simply placing back on home meds. (5) DM type 2 (diabetes mellitus, type 2): lantus/novolog - adjust as needed (6) COPD (chronic obstructive pulmonary disease): not in exacerbation (7) Back pain: no issues today (8) Morbid obesity with body mass index of 50.0-59.9 in adult: BMI 50 (9) Learning disability: (10) Obstructive sleep apnea: would benefit from night-time O2 has refused CPAP in past (11) GERD (gastroesophageal reflux disease): PPI (12) Obesity hypoventilation syndrome: needs 2-step O2 test tomorrow (13) DVT prophylaxis: chemical means on hold due to recent hemoptysis possible DC home tomorrow Subjective saw the patient post-bronch. he wanted to go home. however I walked him in the hallway and he desatted to 85% in RA. he was willing to stay to the am for 2-step. tele stable. bronch today was normal. denied any complaints. Constitutional: no fever Respiratory: no cough and no dyspnea Cardiovascular: no chest pain Gastrointestinal: no abdominal pain Physical Exam Vital Signs (Past 24 Hours): Last Vital Signs Temp 36.7 C 05/24/18 19:35 Pulse 92 H 05/24/18 19:35 Resp 20 05/24/18 19:35 BP 111/62 05/24/18 19:35 Pulse Ox 95 05/24/18 19:35 Constitutional: + morbidly obese; no acute distress and not ill appearing ENMT: external ear and nose normal, oropharynx normal Respiratory: normal respiratory effort, lungs clear to auscultation Auscultation: + diminished lung sounds (bases) Cardiovascular: Rate/Rhythm: regular rate and regular rhythm Heart Sounds: normal S1 and normal S2; no murmur Vessels: posterior tibial pulses present and dorsalis pedis pulses present; no JVD Extremities: + edema (1-2+ b/l) Gastrointestinal (Abdomen): normal bowel sounds, soft, nontender, no hepatosplenomegaly Percussion/Palpation: + hernia (umbilical - reducible) Psychiatric: A+Ox3, euthymic affect (1) DM type 2 (diabetes mellitus, type 2) Diabetes mellitus complication detail: with other circulatory complications Diabetes mellitus complication status: with circulatory complication Diabetes mellitus watcher automat [employer] goods insulin use: with penitentiary use Qualified Code(s): E11.59 - Type 2 diabetes mellitus with other circulatory complications; Z79.4 - termination clerk (current) use of insulin (2) CHF (congestive heart failure) Heart failure chronicity: acute on chronic Heart failure type: combined systolic and diastolic Qualified Code(s): I50.43 - Acute on chronic combined systolic (congestive) and diastolic (congestive) heart failure (3) Back pain Back pain location: low back pain Chronicity: chronic Back pain laterality: unspecified Sciatica presence: unspecified whether sciatica present Qualified Code(s): M54.5 - Low back pain; G89.29 - Other chronic pain (4) COPD (chronic obstructive pulmonary disease) COPD type: unspecified COPD Qualified Code(s): J44.9 - Chronic obstructive pulmonary disease, unspecified (5) GERD (gastroesophageal reflux disease) Esophagitis presence: without esophagitis Qualified Code(s): K21.9 - Gastro- esophageal reflux disease without esophagitis (6) Hypertension Hypertension type: essential hypertension Qualified Code(s): I10 - Essential (primary) hypertension
--- NOTE | 2018-05-25 01:40 | Operative Report ---
DATE OF OPERATION: 05/24/2018 PREOPERATIVE DIAGNOSIS: Hemoptysis. POSTOPERATIVE DIAGNOSIS: Hemoptysis. PROCEDURE: Fiberoptic bronchoscopy with bronchial washings under general anesthesia. SURGEON: Alistair Houston MD MANAGER SAS: Tonio Huang, registered respiratory therapist. ANESTHESIA: General anesthesia, endotracheal intubation. INDICATION FOR PROCEDURE AND FINDINGS: Alok Huff is a 42-year-old morbidly obese male who has a complaint of hemoptysis for the last few months. Dr. Rodney Murray has followed him from a pulmonary perspective and attempted to do a bronchoscopy under sedation yesterday, but the patient's blood pressure was markedly high. He has some cognitive deficits and we feel he is noncompliant with his medications. He also has a hypertensive cardiomyopathy. He is morbidly obese. Dr. Murray asked if this could be done under general anesthesia in the operating room. On 05/24/2018, the patient underwent an uncomplicated fiberoptic bronchoscopy. His airways were pristine. He had no evidence of bleeding nor did he have any mucus. I did irrigate out both the right and left bronchial trees and sent off cultures, but it really looked quite good. He tolerated it well. DESCRIPTION OF PROCEDURE: The patient was brought to the operating room and laid in supine position. General anesthesia was induced, endotracheal intubation was performed without difficulty. After appropriate timeout had been called and prophylactic antibiotics given, a fiberoptic scope was placed through the endotracheal tube and it could be seen that we had positioned it correctly in the mid trachea. I closely inspected the airways and saw no evidence of any recent bleeding. I went down to the basilar segments and closely inspected the right lower lobe lateral and medial basilar segment as well as the medial and lateral segments of the middle lobe and the segment of the upper lobe. I irrigated out each of these and really did not get any sputum or blood back. Likewise, I went into the upper lobe bronchus on the left into the apical anterior as well as the lingular washings and I saw no evidence of any bleeding or mucus. Finally, I went into the lower lobe and did the basilar segments and irrigated them out and again we saw very little. I did collect all this and sent this off for microbiology in the form of Gram stain cultures. I saw no evidence of any malignancy. I slowly withdrew the bronchoscope. I saw no evidence of any recent bleeding anywhere. He tolerated it well. I attest to the content of the Intraoperative Record and any orders documented therein. Any exception s are noted below.
[2018-05-25 07:25] LABS: BUN Creatinine Ratio 14.1 (10-20); Creatinine Clr Calc Pharmacy 79.7 ml/min; Est GFR (African American) 54.8; Est GFR (Non-African American) 47.3; Potassium 3.4 mmol/L (3.5-5.1)
[2018-05-25] MEDS: SACUBITRIL-VALSARTAN 49/51 MG TAB PO SCH ×2 (08:46→20:20)
[2018-05-25] MEDS: ISOSORBIDE MONO EXTENDED REL 60 MG TABCR PO SCH ×2 (08:46→20:19)
[2018-05-25] MEDS: POTASSIUM CHLORIDE 20 MEQ TABCR PO SCH (08:46)
[2018-05-25] MEDS: FUROSEMIDE 80 MG in SYRINGE 0 ML IV SCH (08:46)
[2018-05-25] MEDS: HydrALAZINE TAB 50 MG TAB PO SCH ×3 (08:46→20:20)
[2018-05-25] MEDS: ASPIRIN 81 MG ECTAB PO SCH (08:46)
[2018-05-25] MEDS: PANTOprazole 40 MG TAB PO SCH (08:46)
[2018-05-25] MEDS: CHOLECALCIFEROL 1,000 UNITS TAB PO SCH ×2 (08:47→20:20)
[2018-05-25] MEDS: INSULIN GLARGINE SOLOSTAR 100 UNITS/ML 3 ML PEN SC SCH ×2 (08:47→20:19)
[2018-05-25] MEDS: INSULIN ASPART 100 UNITS/ML 3 ML PEN SC SCH ×4 (08:48→20:18)
[2018-05-25] MEDS: METOPROLOL SUCC 50MG EXT REL TAB PO SCH (09:30)
--- NOTE | 2018-05-25 10:06 | Progress Note ---
DATE: 05/25/2018 Chart reviewed. ASSESSMENT: No evidence for further hemoptysis. Bronchoscopy showed no obvious etiology and CTA was negative for pulmonary thromboembolic disease or other abnormality. The fact that his blood pressure is well controlled if anything somewhat low here in the hospital speaks for noncompliance with the patient's current regimen and I suspect if the hemoptysis has been an issue for him, it is the result of malignant hypertension and CHF in my opinion. The patient needs to be compliant with BiPAP therapy if he wishes to stay out of the hospital and keep from going into acute on chronic hypoxic and hypercarbic respiratory failure.
--- NOTE | 2018-05-25 10:59 | Surgery Progress Note ---
Date of Service May 25, 2018 Assessment & Plan (1) Hemoptysis: -pt. is s/p FOB on 05/24/18 -no source of hemoptysis is noted -may be secondary to underlying cardiac issues -gram (+) and gram (-) cocci noted on washings--will defer to pulmonary if this needs to be treated Subjective Pt. notes his breathing has improved since yesterday's FOB. He reports little in the way of hemoptysis. Physical Exam Vital Signs (Past 24 Hours): Last Vital Signs Temp 37 C 05/25/18 06:34 Pulse 79 05/25/18 08:00 Resp 20 05/25/18 06:34 BP 96/52 L 05/25/18 06:34 Pulse Ox 94 05/25/18 06:34 Respiratory: normal respiratory effort; no respiratory distress and no labored breathing BS are decrease at bases
[2018-05-25] MEDS: ACETAMINOPHEN 325 MG TAB PO PRN (11:02)
[2018-05-25 15:25] LABS: BUN Creatinine Ratio 16.1 (10-20); Calcium 9.4 mg/dl (8.5-10.1); Est GFR (African American) 57.6; Est GFR (Non-African American) 49.7; Potassium 3.9 mmol/L (3.5-5.1)
--- NOTE | 2018-05-25 22:00 | Hospitalist Progress Note ---
Date of Service May 25, 2018 Assessment & Plan (1) Acute kidney injury: likely due to over-diuresis OR prerenal from relative hypotension. patient was markedly hypertensive at admission (systolics 250s) and now systolics of 90-110. STOP lasix. HOLD most BP meds and allow BP to rise. repeat BMP later in the day showed stable creatinine. repeat BMP am. Present on Admission?: No (2) Hemoptysis: resolved. has not recurred. s/p bronch this admission with no source for hemoptysis. CTA chest w/o source for hemoptysis. etiology? intermittent bronchitis or pulm edema? nosebleeding? other? monitor. (3) CHF (congestive heart failure): acute/chronic systolic CHF. resolved. likely over-diuresed given the BUN and Cr rise. hold lasix. repeat labs am. (4) Hypertensive urgency: resolved. suspected to be due to noncompliance. now with relative hypotension. (5) Hypertension: controlled w/ simply placing back on home meds. now relatively low. see above. (6) DM type 2 (diabetes mellitus, type 2): lantus/novolog. (7) COPD (chronic obstructive pulmonary disease): not in exacerbation (8) Back pain: no issues today (9) Morbid obesity with body mass index of 50.0-59.9 in adult: BMI 50 (10) Learning disability: - Noted (11) Obstructive sleep apnea: would benefit from night-time O2 has refused CPAP in past (12) GERD (gastroesophageal reflux disease): PPI (13) Obesity hypoventilation syndrome: passed 2-step today (14) DVT prophylaxis: chemical means on hold due to recent hemoptysis possible DC home tomorrow pending his Creatinine level Subjective pt feels well passed 2-step O2 test wants to go home no dyspnea, orthopnea, PND no hemoptysis tele with NSR overnight Constitutional: no fever Respiratory: no cough, no dyspnea and no dyspnea on exertion Cardiovascular: + edema; no chest pain, no orthopnea and no paroxysmal nocturnal dyspnea Physical Exam Vital Signs (Past 24 Hours): Last Vital Signs Temp 36.7 C 05/25/18 20:00 Pulse 92 H 05/25/18 20:00 Resp 20 05/25/18 20:00 BP 102/62 05/25/18 20:00 Pulse Ox 91 05/25/18 20:00 Constitutional: + morbidly obese; no acute distress and not ill appearing ENMT: external ear and nose normal, oropharynx normal right TM wnl; right ear canal wnl Respiratory: normal respiratory effort, lungs clear to auscultation Auscultation: + diminished lung sounds (bases) Cardiovascular: Rate/Rhythm: regular rate and regular rhythm Heart Sounds: normal S1 and normal S2; no murmur Vessels: posterior tibial pulses present and dorsalis pedis pulses present; no JVD Extremities: + edema (trace b/l) Gastrointestinal (Abdomen): normal bowel sounds, soft, nontender, no hepatosplenomegaly Percussion/Palpation: + hernia (umbilical - reducible) Psychiatric: A+Ox3, euthymic affect Results & Data Laboratory Results Laboratory Results - last 24 hr 05/25/18 05/25/18 05/25/18 06:46 07:20 11:16 Sodium 136 Potassium 3.4 L Chloride 99 Carbon Dioxide 29 Anion Gap 8.0 BUN 25 H D Creatinine 1.75 H D Est Cr Clr Drug Dosing 79.7 Est GFR ( Amer) 54.8 Est GFR (Non-Af Amer) 47.3 BUN/Creatinine Ratio 14.1 Glucose 204 H POC Glucose 236 H 97 Calcium 9.0 05/25/18 05/25/18 05/25/18 14:44 16:22 20:12 Sodium 135 L Potassium 3.9 Chloride 96 L Carbon Dioxide 34 H Anion Gap 5.0 BUN 27 H Creatinine 1.68 H Est Cr Clr Drug Dosing 83.0 Est GFR ( Amer) 57.6 Est GFR (Non-Af Amer) 49.7 BUN/Creatinine Ratio 16.1 Glucose 155 H POC Glucose 257 H 102 H Calcium 9.4 (1) DM type 2 (diabetes mellitus, type 2) Diabetes mellitus complication detail: with other circulatory complications Diabetes mellitus complication status: with circulatory complication Diabetes mellitus manager intermediate insulin use: with chcf use Qualified Code(s): E11.59 - Type 2 diabetes mellitus with other circulatory complications; Z79.4 - care home (current) use of insulin (2) CHF (congestive heart failure) Heart failure chronicity: acute on chronic Heart failure type: combined systolic and diastolic Qualified Code(s): I50.43 - Acute on chronic combined systolic (congestive) and diastolic (congestive) heart failure (3) Back pain Back pain laterality: unspecified Back pain location: low back pain Chronicity: chronic Sciatica presence: unspecified whether sciatica present Qualified Code(s): M54.5 - Low back pain; G89.29 - Other chronic pain (4) COPD (chronic obstructive pulmonary disease) COPD type: unspecified COPD Qualified Code(s): J44.9 - Chronic obstructive pulmonary disease, unspecified (5) GERD (gastroesophageal reflux disease) Esophagitis presence: without esophagitis Qualified Code(s): K21.9 - Gastro- esophageal reflux disease without esophagitis (6) Hypertension Hypertension type: essential hypertension Qualified Code(s): I10 - Essential (primary) hypertension
[2018-05-26] MEDS: INSULIN ASPART 100 UNITS/ML 3 ML PEN SC SCH ×2 (07:51→12:17)
[2018-05-26] MEDS: ASPIRIN 81 MG ECTAB PO SCH (08:00)
[2018-05-26] MEDS: POTASSIUM CHLORIDE 20 MEQ TABCR PO SCH (08:00)
[2018-05-26] MEDS: INSULIN GLARGINE SOLOSTAR 100 UNITS/ML 3 ML PEN SC SCH (08:01)
[2018-05-26] MEDS: PANTOprazole 40 MG TAB PO SCH (08:02)
[2018-05-26] MEDS: METOPROLOL SUCC 50MG EXT REL TAB PO SCH (08:02)
[2018-05-26] MEDS: CHOLECALCIFEROL 1,000 UNITS TAB PO SCH (08:02)
[2018-05-26 08:04] LABS: BUN Creatinine Ratio 22.8 (10-20); Calcium 9.2 mg/dl (8.5-10.1); Creatinine Clr Calc Pharmacy 100.1 ml/min; Est GFR (African American) 71.2; Est GFR (Non-African American) 61.4; Potassium 3.6 mmol/L (3.5-5.1)
--- NOTE | 2018-06-05 09:33 | Discharge Summary ---
Date of Service date of admission - May 23, 2018 date of discharge - May 26, 2018 Admission HPI Per Admitting Provider 42yo male with PMHx of chronic systolic CHF, morbid obesity with BMI of 53.7, HTN (poorly controlled), T2DM, GERD, COPD, MARIELENA, noncompliance, and a learning disability who presented for routine bronchoscopy by Dr. Murray in same day surgery this morning. He had been having intermittent hemoptysis over the last few weeks; thus, bronchoscopy was to rule out endobronchial lesion as the cause of the hemoptysis. Upon presentation in the pre-op area the patient was noted to be markedly hypertensive with systolic BPs in the 220s. BP continued to be uncontrolled despite administration of IV hydralazine, and pt had episode of hemoptysis with a small amount of bright red blood while awaiting his procedure. He also reported worsening shortness of breath in the last few weeks along with chest pressure. As a result of the elevated blood pressure his bronchoscopy was canceled and he was admitted for further management. Principal Diagnosis hypertensive urgency Discharge Exam Constitutional + morbidly obese; no acute distress and not ill appearing ENMT external ear and nose normal, oropharynx normal Respiratory normal respiratory effort, lungs clear to auscultation Auscultation: + diminished lung sounds (bases) Cardiovascular Rate/Rhythm: regular rate and regular rhythm Heart Sounds: normal S1 and normal S2; no murmur Vessels: posterior tibial pulses present and dorsalis pedis pulses present; no JVD Extremities: + edema (trace b/l) Gastrointestinal (Abdomen) normal bowel sounds, soft, nontender, no hepatosplenomegaly Percussion/Palpation: + hernia (umbilical - reducible) Psychiatric A+Ox3, euthymic affect Discharge Data Allergies Allergy/AdvReac Type Severity Reaction Status Date / Time ceftriaxone Allergy Severe SHORTNESS Verified 05/23/18 07:14 OF BREATH lidocaine Allergy Severe SHORTNESS Verified 05/23/18 07:14 OF BREATH, diaphoretic, hives procaine Allergy Severe SHORTNESS Verified 05/23/18 07:14 OF BREATH, diaphoretic, hives amoxicillin Allergy Intermediate HIVES/FACIAL Verified 05/23/18 07:14 SWELLING lisinopril Allergy Intermediate HIVES Verified 05/23/18 07:14 albuterol Allergy Mild proair Verified 05/23/18 07:14 "trouble taking breaths" clavulanic acid Allergy Unknown . Verified 05/23/18 07:14 acetaminophen AdvReac Mild NAUSEA Verified 05/23/18 07:14 Consultations 1. cardiology - Holger Rosen MD 2. thoracic surgery - Alistair Houston MD 3. pulmonary - Ok Murray MD Procedures Performed Operation Date: 05/24/18 Bronchoscopy- Alistair Houston MD, [facility] Normal findings - no endobronchial lesions or other abnormalit Two-step O2 test - no need for ambulatory oxygen. Ordered Studies CTA chest - IMPRESSION: 1. No evidence for pulmonary embolus. 2. Small bilateral pleural effusions. 3. Hazy parenchymal infiltrate right base versus developing components of pulmonary edema. 4. Diffuse bilateral nodularity with close CT follow-up recommended Hospital Course (1) Hypertensive urgency: The patient's BPs improved/normalized with simply resuming his normal regimen of BP medications. This would argue that he is noncompliant with his medication regimen. In fact the patient developed RELATIVE HYPOTENSION on his normal medications. Due to the hypotension I reduced his hydralazine to BID dosing at discharge and his metoprolol xl dose was reduced to 150mg daily. With reducing these medications his BPs were STILL CONTROLLED. He will need close follow-up with the CHF clinic through [facility] for ongoing surveillance. HE WOULD BENEFIT FROM HOME HEALTH NURSING HOWEVER HE HAS REFUSED SUCH INTERVENTION. (2) CHF (congestive heart failure): The patient had acute/chronic systolic CHF while here and received IV diuresis. In the midst of his diuresis he developed mild MIKEY. His lasix was held on day of discharge but he will resume it 24 hours after discharge. Discharge weight was 154kg. Again his metoprolol was reduced to 150mg daily due to bradycardia and mild relative hypotension. (3) Acute kidney injury: Likely due to over-diuresis OR prerenal from relative hypotension. Patient was markedly hypertensive at admission (systolics 220s) and then had systolics of 90-110. Peak creatinine was 1.7, improving to 1.4 before discharge. At discharge the following were advised: HOLD Entresto day of discharge; resume on 05/27/18. RESUME lasix the afternoon of discharge. He will need a repeat BMP within a few days of discharge preferably when he follows-up with the CHF clinic. (4) Hemoptysis: Resolved and did not recur while hospitalized. s/p bronch this admission by Dr. Houston with no source for hemoptysis. CTA chest w/o source for hemoptysis. Suspect that the hemoptysis could be from intermittent pulmonary edema. Other possibility is that of bleeding from the nose posteriorly but patient denied any recent nosebleeds. (5) Hypertension: See Hypertensive Urgency above. (6) DM type 2 (diabetes mellitus, type 2): Controlled with lantus/novolog while hospitalized. He will resume his normal insulin regimen at discharge. (7) COPD (chronic obstructive pulmonary disease): not in exacerbation during the stay. (8) Morbid obesity with body mass index of 50.0-59.9 in adult: BMI ~50 (9) Learning disability: Plays significant role in his noncompliance and his ability to control his complex medical issues. (10) Obstructive sleep apnea: would benefit from night-time O2 has refused CPAP in past (11) GERD (gastroesophageal reflux disease): PPI (12) Obesity hypoventilation syndrome: passed 2-step on day of discharge; does not need ambulatory O2. Total Time Total Time Spent Total Time Spent (In Minutes): 45 Total Time Includes: Examination of the Patient, Discharge Planning, Medication Reconciliation and Communication With Other Providers Discharge Plan Discharge Items Patient Disposition: Home - Self-Care Reason For Visit: high blood pressure; congestive heart failure Discharge Diagnosis: high blood pressure - improved. fluid retention from congestive heart failure - improved. Discharge Goals: Diagnostic testing and Therapeutic intervention Activity: Resume your previous activity Non-emergency contact: Primary Care Provider and [employer] Other Ranks Call non-emergency contact if: you have any medication questions, your symptoms worsen and your temperature is above 100.5 Follow-up/Referrals: Abraham Rosen MD [Physician] - (or Corie Osorio - in the "CHF" clinic - within 3 days) Yuki Rosario MD [Primary Care Provider] - Diet: Carb Consistent or DM2 and Low Sodium (2gm) Fluids: 1800ml (7 cups) Other Ambulatory Orders: Basic Metabolic Panel (Routine) Timeframe: 3 Days Location: Determined by Patient Ordered By: Migue Luong Provider Instructions: Mr Huff - You were admitted because of severely uncontrolled high blood pressure. You also had fluid retention from your congestive heart failure. Your blood pressures improved. In fact, they have been running low for 1-2 days. Your fluid retention is much better. Dr. Alistair Houston performed a bronchoscopy on your lungs because of the bloody spit you have been having. That test was NORMAL; we did not find cancer in your lungs or any other problem. At this time please do the following - 1. HOLD your Entresto (sacubitril-valsartan) medication TODAY. RESUME this medication on the morning of 05/27/18. 2. RESUME your lasix (furosemide) water pill THIS AFTERNOON. 3. LOWER your Hydralazine blood pressure pill from three times a day DOWN to TWICE A DAY. 4. LOWER your metoprolol succinate (metoprolol xl) from twice a day DOWN to ONCE A DAY. 5. STOP your METFORMIN. Your discharge weight is 154 kg (338 pounds). Continue to check your weight every morning at home and let the heart doctors know if you gain more than 3-4 pounds in 1-2 days. You will need a repeat blood draw THIS WEEK. Ideally you have the blood draw on the day of your follow-up appointment with the voting machine repairer. Follow-up -- Please see Corie HA in the Congestive Heart Failure Clinic within 3-5 days. We will try to help you get an appointment. Return to [facility] if -- * you have fever over 100.5 degrees * you have worsening shortness of breath * you have chest pain * any other concerns Additional CHF (congestive heart failure) instructions: Call 911 and go to the Emergency Room if: * You have tightness or pain in your chest that does not go away with rest or Nitroglycerin * You are very short of breath even with rest Call your doctor if any of the following symptoms or problems start or get worse: * Shortness of breath or difficulty breathing * Wake up at night short of breath * Chest pain * Cough * Swelling of your hands, fee, or legs * More fatigued or tired with your normal activity * Palpitations - sudden fast heart beats WEIGHT * Weigh yourself every morning after using the bathroom. * Use the same scale. * Wear the same amount of clothing. * Write your weight down on your chart. * Call your doctors if you gain more than 3-4 pounds in 1-2 days. MEDICATIONS * Use this discharge instruction sheet for instructions. * Take your medications at the time your doctor ordered. * Do not skip a dose of your medicines. * If you miss a dose of medicine, take as soon as possible, but DO NOT DOUBLE A DOSE. * Read your medicine information when you get home. * Know all of the side effects of your medicine. * Call your doctor's office if you have any side effects. * Be sure all of your doctors know what medicine and herbs you take (including cold, flu, and herbal medicine). * Pain Medicine: If you do not get relief from your pain, please call your doctor for help. Take the following with you to your follow-up doctor appointments: * Weight Chart * Medication List * List of questions Do not drink excessive alcohol, beer or wine. Prescriptions: Continued aspirin [Aspirin Low Dose] 81 mg Tablet,Delayed Release (Dr/Ec) 81 mg PO QAM RF: 0 potassium chloride [Klor-Con M20] 20 mEq Tablet,Er Particles/Crystals 20 meq PO QAM RF: 0 esomeprazole magnesium [Nexium] 40 mg Capsule,Delayed Release(Dr/Ec) 40 mg PO QAM RF: 0 Humalog Mix 50-50 KwikPen 100 unit/mL (50-50) Insulin Pen 125 unit SUBCUT QPM RF: 0 Humalog Mix 50-50 KwikPen 100 unit/mL (50-50) Insulin Pen 135 unit SUBCUT QAM RF: 0 cholecalciferol (vitamin D3) 2,000 unit Tablet 2,000 unit PO BID RF: 0 Ozempic 0.25 mg or 0.5 mg(2 mg/1.5 mL) pen injector 0.25 mg subcut .EVERY SUNDAY RF: 0 furosemide 40 mg tablet 80 mg PO BID RF: 0 metolazone 2.5 mg tablet 2.5 mg PO DIRECTED RF: 0 sacubitril-valsartan 97-103 mg Tablet 1 tab PO BID RF: 0 umeclidinium 62.5 mcg/actuation blister with device 1 puff Inhalation Q4H PRN (Reason: Shortness Of Breath Or Wheezing) RF: 0 isosorbide mononitrate 60 mg tablet extended release 24 hr 60 mg PO BID RF: 0 Changed metoprolol succinate 100 mg tablet extended release 24 hr 150 mg PO DAILY Qty: 30 RF: 0 hydralazine 50 mg tablet 50 mg PO BID Qty: 60 RF: 0 Discontinued metformin 1,000 mg Tablet 1,000 mg PO DAILY RF: 0 Stand-Alone Forms: [facility] Discharge Orders: Discharge Order (Routine); Ordered 05/26/18 Ordered By: Migue Packer Admission Data Admit Date/Time: 05/23/18 09:46 Attending Provider: Migue Packer Admit Provider: Rodney Murray Primary Care Provider: Yuki Rosario Other Providers: Alistair Houston ; Abraham Rosen Service: Telemetry Other Interventions: Discharge Summary Assessment (RN) Last Done: 05/26/18 12:00 Pending Studies at Discharge: Yes Studies:: cultures from your bronchoscopy procedure DC Date/Time DO NOT enter until pt leaves facility: 05/26/18 12:55
== END 2018-05-26 12:55 | disposition home or self-care (01) | DRG 264 ==
LOC: ASU 06:47 → SUATTDRO 09:46 → 2S 09:46

== ENCOUNTER 2018-06-17 00:13 | Inpatient (IN) ==
[2018-06-17 00:42] LABS: Basophils # (auto) 0.01 K/uL (0-0.2); Basophils % (auto) 0.1 %; Eosinophils # (auto) 0.06 K/uL (0-0.5); Eosinophils % (auto) 0.6 %; Hematocrit (blood only) 39.7 % (42-52); Hemoglobin 14.2 g/dL (14.0-18.0); Immature Granulocytes # (auto) 0.03 K/uL (0.00-0.02); Immature Granulocytes % (auto) 0.3 %; Lymphocytes # (auto) 2.09 K/uL (1.2-3.4); Lymphocytes % (auto) 19.2 %; Mean Corpuscular Hgb Conc 35.8 g/dL (32-36); Mean Corpuscular Volume 83.1 fL (80-100); Mean Platelet Volume 10.2 fL (7.4-10.4); Monocytes # (auto) 0.71 K/uL (0.11-0.59); Monocytes % (auto) 6.5 %; Neutrophils # (auto) 7.97 K/uL (1.4-6.5); Neutrophils % (auto) 73.3 %; Platelet Count 179 K/uL (130-400); RDW Coefficient of Variation 14.5 % (11.5-14.5); RDW Standard Deviation 44.1 fL (36.4-46.3); Red Blood Count 4.78 M/uL (4.7-6.1); White Blood Count 10.87 K/uL (4.8-10.8)
[2018-06-17] MEDS ORDERED: FUROSEMIDE 40 MG in SYRINGE 0 ML IV STA (00:47)
[2018-06-17 00:59] LABS: Albumin Level 3.2 gm/dl (3.4-5.0); BUN Creatinine Ratio 12.8 (10-20); Bilirubin Direct 0.3 mg/dl (0-0.2); Calcium 8.1 mg/dl (8.5-10.1); Creatinine Clr Calc Pharmacy 155.7 ml/min; Est GFR (African American) 114.8; Magnesium 1.8 mg/dl (1.8-2.4); Potassium 3.8 mmol/L (3.5-5.1)
[2018-06-17 01:04] LABS: INR 1.1 (0.9-1.1); Partial Thromboplastin Time 27.4 Seconds (21.0-31.0)
[2018-06-17 01:07] LABS: Bilirubin,Total 0.9 mg/dl (0.2-1); Total Protein 6.7 gm/dl (6.4-8.2); Troponin I 0.047 ng/ml (0-0.045)
[2018-06-17] MEDS ORDERED: FUROSEMIDE 40 MG/4 ML VIAL IV ONE (01:17)
[2018-06-17] MEDS ORDERED: HydrALAZINE HCL 20 MG/ML VIAL IV STA (02:00)
[2018-06-17] MEDS ORDERED: METOPROLOL TARTRATE 1 MG/ML VIAL IV STA (02:04)
[2018-06-17] MEDS ORDERED: NITROGLYCERIN 2% OINTMENT 30GM TUBE EXT ONE (02:04)
--- NOTE | 2018-06-17 02:40 | Emergency Department Note ---
Entered by Lexus Ratliff acting as a scribe for Lenny Moya MD ED Provider Note Name: Alok Age: [age] Arrives Via: Ambulance Informant: Self CC: SOB HPI: A male arrives for evaluation after complaining of constant SOB and chest pain that began yesterday. The patient reports that the chest pain, located on his right side, radiates to his left shoulder and the back of his neck. He complains of intermittent lightheadedness and an increase in frequency of urination. The patient complains of hemoptysis, difficulty sleeping, and bilateral lower extremity swelling. He denies any syncope. The patient notes that he recently gained weight. He states that he's been taking medications as prescribed. The patient denies any modifying factors. ROS: See above HPI for pertinent positives & negatives. A total of 10 systems reviewed and were otherwise negative. Past Medical History: hypertension, CHF, hemoptysis, diabetes, GERD, depression Past Surgical History: cholecystectomy Family History: No pertinent family history. Social History: Lives with spouse. Home Medications: See below. Allergies: ceftriaxone, lidocaine, procaine, amoxicillin, lisinopril, albuterol, clavulanic acid, acetaminophen Physical: Vitals: BP: 192/125, P: 116, R: 28, T: 98.6, O2 Sat 91, D: Room Air Exam: GENERAL: Patient is chronically unwell appearing and in moderate acute distress. He is anxious appearing and morbidly obese. EYES: No scleral icterus, unremarkable pupils. ENT: Mucous membranes moist, no nasal congestion. NECK: No masses appreciated, no meningismus, trachea is midline. RESPIRATORY: Dyspneic. Diffusely wet and distant lung sounds. No wheeze, no rhonchi. CARDIOVASCULAR: Regular rate and rhythm. No murmurs, rubs, gallops appreciated. GASTROINTESTINAL: Abdomen soft, non-tender, no peritonitis. Bowel sounds positive. No masses appreciated. BACK: No midline tenderness, no CVA tenderness EXTREMITIES: Normal motion all extremities, no cyanosis. 4+ pitting edema bilaterally. NEUROLOGIC: Alert and oriented, no acute motor or sensory deficits, no focal weakness, cranial nerves grossly intact. SKIN: No rash, no jaundice, no diaphoresis. ED Course: Prior Medical Record, Triage/Nursing Notes, Medications, Allergies reviewed by Me Vital Signs: reviewed and remarkable for hypertension and tachycardia. Labs: Reviewed and remarkable for Elevated BNP & trop from baseline. Stable HgB. Interventions: Saline Lock, Lasix 40mg, Lopressor 5mg IV, Nitro Paste, BiPAP Imaging: X ray results are stated below per my interpretation: Chest: 1 view: Pulmonary Edema, worsening from previous EKG: Per My Interpretation: Indication - Shortness of breath: Sinus tachy 121 bpm without ectopy nor ischemia qtc 479 and yolande axis, HR increased from 4-26-19 Consults: I spoke with Dr. Jaquez, [facility] hospitalist, about the patient's case. He will evaluate the patient further. Reassessments/Times: 0020: The patient was evaluated in room B07. A complete history and physical exam was performed. 0115: I reevaluated the patient, and his blood pressure and heart rate were going down. He was doing better on BiPAP. 0120: I spoke with Dr. Jaquez, [facility] hospitalist, about the patient's case. He will evaluate the patient further. 0204: I discussed the patient's case with Dr. Jaquez. He asked for Lopressor to be given instead of Hydralazine. Blood pressure: Elevated - Referred to Hospitalist Disposition: Hospitalization Differentials: Differential: Infectious, Reactive Airway Disease, Pneumonia, Pneumothorax, COPD, CHF, ACS, Pulmonary Embolism, MSK, GI, Dissection, amongst other etiologies entertained. Medical Decision Making: Chronically unwell non-compliant pt with dmii, chf, htn, morbid obesity, amrielena, cardiomyopathy arrives with worsening shob and reported hemoptysis. Multiple large work-ups with CT PEs and bronchs over last few months without any evidence of hemoptysis, thus with stable hgb and no hemoptysis here I do not feel that CT PE indicated at this time. He is however clearly in acute pulmonary edema. Responded well to BiPAP and HR/BP coming down. BP did start creeping up again thus Lopressor/Nitropaste ordered. Trop bumped suspect this is demand and that we can hold off on heparin/asa at this time, especially given his continued insistence that hemoptysis. No clear evidence infectious etiology at this time. He was monitored closely and noted to be sleeping though easily awakes on se veral evaluations. Discussed with hospitalist who will manage further. Impression: Pulmonary Edema Elevated Troponin Critical Care Time: I have personally spent greater than 30 minutes of critical care time in the direct management of this patient. Acute Pulmonary Edema requiring BiPAP. This was a life/limb threatening event. This includes time spent evaluating patient, direct bedside care, chart review, placing orders, interpretation of diagnostic studies, discussion with consultants, patient, and family members, as well as other required patient management activities. This 30 minutes is in excess of all separately billable procedures. Lenny Moya MD The scribe's documentation has been prepared under my direction and personally reviewed by me in its entirety. I confirm that the note above accurately reflects all work, treatment, procedures, and medical decision making performed by me. Impression & Plan Pulmonary edema, Elevated troponin Past Med/Surg History Medical History Hypertension (Acute) CHF (congestive heart failure) (Acute) Hypertensive urgency (Acute) Hemoptysis GERD (gastroesophageal reflux disease) COPD (chronic obstructive pulmonary disease) (Chronic) DM type 2 (diabetes mellitus, type 2) Back pain (Acute) Obstructive sleep apnea (Acute 02/16/11) Morbid obesity with body mass index of 50.0-59.9 in adult Learning disability Cognitive impairment DM II (diabetes mellitus, type II), controlled Depression Fatty liver GERD (gastroesophageal reflux disease) HTN (hypertension) Medical non-compliance Morbid obesity with BMI of 50.0-59.9, adult Nonischemic cardiomyopathy EF 30-35% MARIELENA (obstructive sleep apnea) Does not comply with CPAP Surgical History History of cholecystectomy Family History Other No pertinent family history Social History Preferred Language: Serbian Communication Ability: Effective Visual Impairment: No Limitations Beliefs That Will Affect Care: None marital status: Current Living Situation: Spouse current occupational status: unemployed Feels Safe at Home: Yes Smoking Status: Former smoker Tobacco Type: cigarettes Cigarettes Per Day: reports he quit smoking at 14 years old Second Hand Exposure: No Hx Alcohol Use: Yes Alcohol type: beer and wine Hx Substance Use: No Results & Data Vital Signs Vital Signs - 24 hr 06/17/18 00:37 06/17/18 00:41 06/17/18 00:46 Temperature 37 C Temperature Source Oral Sepsis Recent Fever Within 48 Hours No Sepsis Action Taken by Nursing No Action Required Pulse Rate 116 H Pulse Rate [Bilateral Apical] Respiratory Rate 28 H 24 Respiratory Effort / Characteristics Labored Short of Breath SOB on Exertion Labored Respiratory Depth Deep Blood Pressure 192/125 H Blood Pressure [Left Arm] Blood Pressure Mean 147 Blood Pressure Mean [Left Arm] Pulse Oximetry 97 97 97 Oxygen Delivery Method BiPAP BiPAP Fraction of Inspired Oxygen 35 06/17/18 01:01 06/17/18 01:56 Temperature Temperature Source Sepsis Recent Fever Within 48 Hours Sepsis Action Taken by Nursing Pulse Rate Pulse Rate [Bilateral Apical] 103 H 100 H Respiratory Rate 24 24 Respiratory Effort / Characteristics Respiratory Depth Blood Pressure Blood Pressure [Left Arm] 155/119 H 177/138 H Blood Pressure Mean Blood Pressure Mean [Left Arm] 131 151 Pulse Oximetry 97 96 Oxygen Delivery Method BiPAP BiPAP Fraction of Inspired Oxygen Home Medications Current Medication List: was personally reviewed by me Laboratory Data Attestation: I reviewed the patient's lab results. Result diagrams: 06/17/18 00:32 06/17/18 00:32 Lab Results 06/17/18 06/17/18 06/17/18 Range/Units 00:32 00:32 00:32 WBC 10.87 H (4.8-10.8) K/uL RBC 4.78 (4.7-6.1) M/uL Hgb 14.2 (14.0-18.0) g/dL Hct 39.7 L (42-52) % MCV 83.1 (80-100) fL MCH 29.7 (25-34) pg MCHC 35.8 (32-36) g/dL RDW Std Deviation 44.1 (36.4-46.3) fL RDW Coeff of Zoltan 14.5 (11.5-14.5) % Plt Count 179 (130-400) K/uL MPV 10.2 (7.4-10.4) fL Immature Gran % (Auto) 0.3 % Neut % (Auto) 73.3 % Lymph % (Auto) 19.2 % Appling % (Auto) 6.5 % Eos % (Auto) 0.6 % Baso % (Auto) 0.1 % Immature Gran # (Auto) 0.03 H (0.00-0.02) K/uL Neut # (Auto) 7.97 H (1.4-6.5) K/uL Lymph # (Auto) 2.09 (1.2-3.4) K/uL Appling # (Auto) 0.71 H (0.11-0.59) K/uL Eos # (Auto) 0.06 (0-0.5) K/uL Baso # (Auto) 0.01 (0-0.2) K/uL PT 11.0 (9.0-12.0) Seconds INR 1.1 (0.9-1.1) APTT 27.4 (21.0-31.0) Seconds PTT Ratio 1.0 Sodium 141 (136-145) mmol/L Potassium 3.8 (3.5-5.1) mmol/L Chloride 109 H (98-107) mmol/L Carbon Dioxide 24 (21-32) mmol/L Anion Gap 8.0 (3-11) BUN 12 (7-18) mg/dl Creatinine 0.95 (0.6-1.4) mg/dl Est Cr Clr Drug Dosing 155.7 ml/min Est GFR ( Amer) 114.8 Est GFR (Non-Af Amer) 99.0 BUN/Creatinine Ratio 12.8 (10-20) Glucose 188 H (70-99) mg/dl Calcium 8.1 L (8.5-10.1) mg/dl Magnesium 1.8 (1.8-2.4) mg/dl Total Bilirubin 0.9 (0.2-1) mg/dl Direct Bilirubin 0.3 H (0-0.2) mg/dl AST 18 (15-37) U/L ALT 27 (12-78) U/L Alkaline Phosphatase 98 (45-117) U/L Troponin I 0.047 H* (0-0.045) ng/ml NT-Pro-B Natriuret Pep 4793 H (0-450) pg/ml Total Protein 6.7 (6.4-8.2) gm/dl Albumin 3.2 L (3.4-5.0) gm/dl Administered Medications Discontinued Medications Furosemide (Lasix) Confirm Administered Dose 40 mg IV .DueDil-MED ONE Stop: 06/17/18 01:18 Last Admin: 06/17/18 01:20 Dose: 40 mg Documented by: [id number] Furosemide 40 mg/ Syringe 4 mls @ 4 mls/min IV ONE STA Stop: 06/17/18 00:48 Last Admin: 06/17/18 01:21 Dose: Not Given Documented by: [id number] Metoprolol Tartrate (Lopressor) 5 mg IV NOW STA Stop: 06/17/18 02:05 Last Admin: 06/17/18 02:12 Dose: 5 mg Documented by: [id number] Nitroglycerin (Nitro-Bid 2%) 1 inch EXT NOW ONE Stop: 06/17/18 02:05 Last Admin: 06/17/18 02:12 Dose: 1 inch Documented by: [id number] Blood Pressure Blood Pressure Findings: Elevated blood pressure Blood Pressure Disposition: further management by hospitalist Discharge Plan Visit Data Chief Complaint: Chest Pain Stated Complaint: CHEST PAIN/SHORT OF BREATH Other Complaint: Shortness of Breath/Dyspnea ED Provider: Lenny Moya Discharge Problem: Pulmonary edema, Elevated troponin Patient Disposition: Being Evaluated by Hospitalist Forms Stand Alone Forms: Call Back Authorization, [facility] Prescriptions Prescriptions: No Action aspirin [Aspirin Low Dose] 81 mg Tablet,Delayed Release (Dr/Ec) 81 mg PO QAM RF: 0 potassium chloride [Klor-Con M20] 20 mEq Tablet,Er Particles/Crystals 20 meq PO QAM RF: 0 Humalog Mix 50-50 KwikPen 100 unit/mL (50-50) Insulin Pen 125 units SUBCUT QPM RF: 0 Humalog Mix 50-50 KwikPen 100 unit/mL (50-50) Insulin Pen 135 units SUBCUT QAM RF: 0 metoprolol succinate 100 mg tablet extended release 24 hr 100 mg PO BID RF: 0 furosemide 40 mg tablet 80 mg PO BID RF: 0 metolazone 2.5 mg tablet 2.5 mg PO [id number] RF: 0 sacubitril-valsartan 97-103 mg Tablet 1 tab PO BID RF: 0 hydralazine 50 mg tablet 50 mg PO BID Qty: 60 RF: 0 esomeprazole magnesium [Nexium] 20 mg Capsule,Delayed Release(Dr/Ec) 20 mg PO QAM RF: 0 cholecalciferol (vitamin D3) [Vitamin D3] 1,000 unit Capsule 2,000 units PO BID RF: 0 Symbicort 160-4.5 mcg/actuation Hfa Aerosol Inhaler 2 puff INHALATION BID RF: 0 Combivent Respimat 20-100 mcg/actuation Mist 1 puff INHALATION Q6H RF: 0 Referrals Referrals: Markie Briceno MD [Primary Care Provider] - Discharge Problem: Pulmonary edema Qualifiers: Chronicity: acute Qualified Code(s): J81.0 - Acute pulmonary edema The scribe's documentation has been prepared under my direction and personally reviewed by me in its entirety. I confirm that the note above accurately reflects all work, treatment, procedures, and medical decision making performed by me.
--- NOTE | 2018-06-17 03:01 | History & Physical Report ---
Date of Service June 17, 2018 Assessment & Plan (1) Shortness of breath: 42-year-old male was admitted on 17 Jun 2018 for shortness of breath and chest pain over past approximately 24 hours. Shortness of breath, acute on chronic systolic CHF exacerbation: Apparently worsened over past 24 hours. Of note, patient was hospitalized from May 23- for hypertensive urgency and hemoptysis. He was noted to very likely be noncompliant with his medications. His discharge weight was 154 kg. - On arrival, afebrile, tachycardic, tachypneic, and hypertensive to 192/125. Initial SpO2 91% on RA. WBC 11, BNP 4793. Weight 166 kg. Chest x-ray appears like volume overload (official read pending). Elevated troponin as discussed below. - In the ED, patient was placed on BiPAP. Given 40 mg of IV Lasix, one inch of nitroglycerin paste, and metoprolol 5 mg IV. - Continue BiPAP for now until noted diuresis and improved breathing. Track I's and O's. Continue home metolazone. Check blood gas. Consult cardiology. May benefit from a NTG drip for both CHF and HTN perspective. - At home was most recently recommended to be on Lasix 120 mg BID. Will start with Lasix 80 mg IV here though may need a Lasix drip acutely. Elevated troponin: Admit TnI 0.047 at 0032. May be acute demand ischemia. EKG is sinus tachycardia, rate 121. - Will recheck TnI and EKG in early AM. Ongoing medical issues: - Hypertension, non-ischemic cardiomyopathy: Followed by CHF clinic as outpatient (see their very thorough note on 11Jun2018). Continue home aspirin, hydralazine, metoprolol, potassium, and Entresto. His metoprolol succinate was recently decreased to 150 mg daily due to sinus bradycardia in the 40s. Echo in Jan 2018 noted EF of 25-30% and moderate to severe global hypokinesis of the left ventricle. Had been recommended to f/u with nephrology for resistant HTN. - DM2: Last HbA1c in chart in April 2018 was 7.4. At home is on Humalog. --- Continue Humalog here, though may need adjustment due to hospital diet likely different than home. Added insulin aspart sliding scale here. - GERD: Continue home Nexium. - Obesity, obesity hypoventilation syndrome, MARIELENA: Patient says he was recently placed on BiPAP at home and says he has been compliant. - COPD: Continue home Symbicort and Combivent. Is followed by Dr. Murray (pulmonology) as outpatient. - Learning disability. - Depression. - Recent hemoptysis: Underwent bronchoscopy on 24May2018 without evidence of source. CTA chest on 11Apr noted no evidence of PE. Code status: Full code. Diet: Heart healthy, diabetes diet, low sodium. Fluid restrict to 2 L. DVT prophy: Heparin 5000 units twice daily. PT/OT: Deferred. Disbo: Admit to telemetry. (2) Acute exacerbation of CHF (congestive heart failure): (3) Elevated troponin: (4) Hypertension: (5) Nonischemic cardiomyopathy: (6) DM type 2 (diabetes mellitus, type 2): (7) GERD (gastroesophageal reflux disease): (8) Morbid obesity with body mass index of 50.0-59.9 in adult: (9) Obesity hypoventilation syndrome: (10) Obstructive sleep apnea: (11) COPD (chronic obstructive pulmonary disease): (12) Learning disability: (13) Depression: History of Present Illness Primary Care Provider: Bertrand Briceno MD 42-year-old male arrives via EMS complaining of chest pain shortness of breath that began yesterday. Of note, his present history is somewhat limited by his need for current BiPAP. He presently says that his chest pain and shortness of breath have improved since starting BiPAP but he continues to have some discomfort around his left posterior shoulder. He says that he has been compliant with his medications at home as well as use of BiPAP at home. Otherwise he denies any other acute concerns. - In review of the ED note, patient also had complained of increased urinary frequency, difficulty sleeping, bilateral lower extremity swelling, and possibly continued hemoptysis. - In brief review of his discharge summary related to his hospitalization from May 23-, patient was noted to have hypertensive urgency that improved once he started taking his home medications. He was noted to be noncompliant with his home medicines. He was advised to have home health nursing but apparently declined. He was advised to follow-up with the CHF clinic. His learning disability was thought to play a significant role in his noncompliance. --- Past medical history includes hypertension, CHF, hemoptysis, diabetes, GERD, depression. --- Past surgical history includes cholecystectomy. --- Social history includes being a former smoker, some alcohol use, and lives at home. Allergies Allergy/AdvReac Type Severity Reaction Status Date / Time ceftriaxone Allergy Severe SHORTNESS Verified 06/17/18 01:38 OF BREATH lidocaine Allergy Severe SHORTNESS Verified 06/17/18 01:38 OF BREATH, diaphoretic, hives procaine Allergy Severe SHORTNESS Verified 06/17/18 01:38 OF BREATH, diaphoretic, hives amoxicillin Allergy Intermediate HIVES/FACIAL Verified 06/17/18 01:38 SWELLING lisinopril Allergy Intermediate HIVES Verified 06/17/18 01:38 albuterol Allergy Mild proair Verified 06/17/18 01:38 "trouble taking breaths" clavulanic acid Allergy Unknown . Verified 06/17/18 01:38 acetaminophen AdvReac Mild NAUSEA Verified 06/17/18 01:38 Home Medications Home Medications Medication Instructions Recorded Confirmed Type Humalog Mix 50-50 KwikPen 125 units SUBCUT QPM 11/28/17 06/17/18 History Humalog Mix 50-50 KwikPen 135 units SUBCUT QAM 11/28/17 06/17/18 History aspirin [Aspirin Low Dose] 81 mg PO QAM 11/28/17 06/17/18 History potassium chloride [Klor-Con M20] 20 meq PO QAM 11/28/17 06/17/18 History furosemide 80 mg PO BID 01/20/18 06/17/18 History metolazone 2.5 mg PO 3XWK 01/20/18 06/17/18 History sacubitril-valsartan 1 tab PO BID 03/08/18 06/17/18 History hydralazine 50 mg PO BID #60 tab 05/26/18 06/17/18 Rx budesonide-formoterol [Symbicort] 2 puff INHALATION BID 06/07/18 06/17/18 History cholecalciferol (vitamin D3) 2,000 units PO BID 06/07/18 06/17/18 History [Vitamin D3] esomeprazole magnesium [Nexium] 20 mg PO QAM 06/07/18 06/17/18 History ipratropium-albuterol [Combivent 1 puff INHALATION Q6H 06/07/18 06/17/18 History Respimat] metoprolol succinate 100 mg PO BID 06/17/18 06/17/18 History Past Med/Surg History Medical History Hypertension (Acute) CHF (congestive heart failure) (Acute) Hypertensive urgency (Acute) Hemoptysis GERD (gastroesophageal reflux disease) COPD (chronic obstructive pulmonary disease) (Chronic) DM type 2 (diabetes mellitus, type 2) Back pain (Acute) Obstructive sleep apnea (Acute 02/16/11) Morbid obesity with body mass index of 50.0-59.9 in adult Learning disability Cognitive impairment DM II (diabetes mellitus, type II), controlled Depression Fatty liver GERD (gastroesophageal reflux disease) HTN (hypertension) Medical non-compliance Morbid obesity with BMI of 50.0-59.9, adult Nonischemic cardiomyopathy EF 30-35% MARIELENA (obstructive sleep apnea) Does not comply with CPAP Surgical History History of cholecystectomy Family History Other No pertinent family history Social History Preferred Language: [place]i Communication Ability: Effective Visual Impairment: No Limitations Beliefs That Will Affect Care: None marital status: Current Living Situation: Spouse current occupational status: unemployed Feels Safe at Home: Yes Smoking Status: Former smoker Tobacco Type: cigarettes Cigarettes Per Day: reports he quit smoking at 14 years old Second Hand Exposure: No Hx Alcohol Use: Yes Alcohol type: beer and wine Hx Substance Use: No Review of Systems Review of Systems: Constitutional: Denies fevers, chills, focal weakness Eyes: Denies any visual loss or diplopia ENT: Denies any ear/nose/throat pain or difficulty speaking or swallowing Respiratory: See HPI. Cardiovascular: See HPI. Gastrointestinal: Denies any abdominal pain, nausea/vomiting/diarrhea Musculoskeletal: Denies any acute extremity pains, myalgias, or focal weakness Skin: Denies any known acute rashes or lesions Neuro: Denies any headache, acute focal weakness or numbness, or difficulties with speech or swallow. Physical Exam Physical Exam: GENERAL: Awake, alert, BiPAP mask in place, does not appear in immediate distress. HENT: Normocephalic, atraumatic. EYES: Normal conjunctiva. Sclera non-icteric. NECK: Inspection normal. Supple and full ROM. No nuchal rigidity. CARDIAC: +S1S2 regular tachycardia, no murmurs. RESPIRATORY: BiPAP presently in place. Minimal breath sounds throughout all lung obrien. Relatively poor respiratory effort but no accessory muscle use or difficulty speaking with BiPAP mask on. GI: +BS, soft, morbidly obese habitus. No tenderness to palpation. No rebound or guarding. EXTREMITIES: 2-3+ bilateral pretibial edema. No calf tenderness. NEURO: No gross neuro deficits. Results & Data Vital Signs (Past 12 Hours) Vital Signs Temp Pulse Pulse Resp BP BP Pulse Ox 06/17/18 02:52 85 24 184/135 H 97 06/17/18 01:56 100 H 24 177/138 H 96 06/17/18 01:01 103 H 24 155/119 H 97 06/17/18 00:46 97 06/17/18 00:41 24 97 06/17/18 00:37 37 C 116 H 28 H 192/125 H 97 Laboratory Results 06/17/18 06/17/18 06/17/18 Range/Units 00:32 00:32 00:32 WBC 10.87 H (4.8-10.8) K/uL RBC 4.78 (4.7-6.1) M/uL Hgb 14.2 (14.0-18.0) g/dL Hct 39.7 L (42-52) % MCV 83.1 (80-100) fL MCH 29.7 (25-34) pg MCHC 35.8 (32-36) g/dL RDW Std Deviation 44.1 (36.4-46.3) fL RDW Coeff of Zoltan 14.5 (11.5-14.5) % Plt Count 179 (130-400) K/uL MPV 10.2 (7.4-10.4) fL Immature Gran % (Auto) 0.3 % Neut % (Auto) 73.3 % Lymph % (Auto) 19.2 % [place] % (Auto) 6.5 % Eos % (Auto) 0.6 % Baso % (Auto) 0.1 % Immature Gran # (Auto) 0.03 H (0.00-0.02) K/uL Neut # (Auto) 7.97 H (1.4-6.5) K/uL Lymph # (Auto) 2.09 (1.2-3.4) K/uL [place] # (Auto) 0.71 H (0.11-0.59) K/uL Eos # (Auto) 0.06 (0-0.5) K/uL Baso # (Auto) 0.01 (0-0.2) K/uL PT 11.0 (9.0-12.0) Seconds INR 1.1 (0.9-1.1) APTT 27.4 (21.0-31.0) Seconds PTT Ratio 1.0 Sodium 141 (136-145) mmol/L Potassium 3.8 (3.5-5.1) mmol/L Chloride 109 H (98-107) mmol/L Carbon Dioxide 24 (21-32) mmol/L Anion Gap 8.0 (3-11) BUN 12 (7-18) mg/dl Creatinine 0.95 (0.6-1.4) mg/dl Est Cr Clr Drug Dosing 155.7 ml/min Est GFR ( Amer) 114.8 Est GFR (Non-Af Amer) 99.0 BUN/Creatinine Ratio 12.8 (10-20) Glucose 188 H (70-99) mg/dl Calcium 8.1 L (8.5-10.1) mg/dl Magnesium 1.8 (1.8-2.4) mg/dl Total Bilirubin 0.9 (0.2-1) mg/dl Direct Bilirubin 0.3 H (0-0.2) mg/dl AST 18 (15-37) U/L ALT 27 (12-78) U/L Alkaline Phosphatase 98 (45-117) U/L Troponin I 0.047 H* (0-0.045) ng/ml NT-Pro-B Natriuret Pep 4793 H (0-450) pg/ml Total Protein 6.7 (6.4-8.2) gm/dl Albumin 3.2 L (3.4-5.0) gm/dl Medications Administered Discontinued Medications Furosemide (Lasix) Confirm Administered Dose 40 mg IV .[facility]-MED ONE Stop: 06/17/18 01:18 Last Admin: 06/17/18 01:20 Dose: 40 mg Documented by: [id number] Furosemide 40 mg/ Syringe 4 mls @ 4 mls/min IV ONE STA Stop: 06/17/18 00:48 Last Admin: 06/17/18 01:21 Dose: Not Given Documented by: [id number] Metoprolol Tartrate (Lopressor) 5 mg IV NOW STA Stop: 06/17/18 02:05 Last Admin: 06/17/18 02:12 Dose: 5 mg Documented by: [id number] Nitroglycerin (Nitro-Bid 2%) 1 inch EXT NOW ONE Stop: 06/17/18 02:05 Last Admin: 06/17/18 02:12 Dose: 1 inch Documented by: [id number] Code Status & VTE Plan Code Status Full code VTE Prophylaxis Plan VTE Prophylaxis will be ordered: Yes Supervising Physician Co-Signing Physician Notes Attending addendum: I have physically seen this patient, have supervised the medical residents a ctivities, and agree with the H&P unless as otherwise noted. Assessment and Plan: Acute on chronic systolic CHF/NSTEMI-- The patient will be admitted to telemetry for serial cardiac enzymes, serial EKG's, cardiac rhythm monitoring and a 2-D echocardiogram with Dopplers. Continue BiPAP. Hold oral Lasix and 20 mg p.o. twice daily. Placed on Lasix 80 mg IV twice daily. Follow serial chest x-rays and laboratories. Most recently seen at CHF outpatient clinic on 06/11/2018. Continue aspirin, hydralazine, metoprolol succinate, metolazone, potassium and Entresto. Consult cardiology. COPD-- Continue Symbicort, and Combivent. DuoNebs as needed. Remainder of orders and notations as noted. Resident Activity Tracking Resident Involvement: Resident Care Provided Care Provided: Adult Hospital Medicine (1) Acute exacerbation of CHF (congestive heart failure) Heart failure type: combined systolic and diastolic Qualified Code(s): I50.43 - Acute on chronic combined systolic (congestive) and diastolic (congestive) heart failure (2) DM type 2 (diabetes mellitus, type 2) Diabetes mellitus complication detail: with other circulatory complications Diabetes mellitus complication status: with circulatory complication Diabetes mellitus termite treater helper insulin use: with nursing home use Qualified Code(s): E11.59 - Type 2 diabetes mellitus with other circulatory complications; Z79.4 - residential (current) use of insulin (3) GERD (gastroesophageal reflux disease) Esophagitis presence: without esophagitis Qualified Code(s): K21.9 - Gastro- esophageal reflux disease without esophagitis (4) Hypertension Hypertension type: essential hypertension Qualified Code(s): I10 - Essential (primary) hypertension
[2018-06-17 03:51] LABS: Base Excess VBG -0.5 mEq/L; Oxygen Saturation VBG 79.8 %; pH VBG 7.35 (7.36-7.41)
[2018-06-17] MEDS ORDERED: CARBOHYDRATES FOR HYPOGLYCEMIA PO PRN (04:06)
[2018-06-17] MEDS ORDERED: GLUCAGON FOR INJ 1 MG VIAL SQ PRN (04:06)
[2018-06-17] MEDS ORDERED: ONDANSETRON INJ 2 MG/ML 2 ML VIAL IV PRN (04:06)
[2018-06-17] MEDS ORDERED: ACETAMINOPHEN 325 MG TAB PO PRN (04:06)
[2018-06-17] MEDS ORDERED: GLUCOSE 40% GEL 15 GM TUBE PO PRN (04:06)
[2018-06-17] MEDS ORDERED: DEXTROSE 50% 50 ML SYRINGE IV PRN (04:06)
[2018-06-17] MEDS ORDERED: GLUCOSE 10 TABS/TUBE PO PRN (04:06)
[2018-06-17] MEDS: IPRATROPIUM BROMIDE/ALBUTEROL respimat INH INH SCH ×4 (05:51→23:21)
--- NOTE | 2018-06-17 06:36 | XRay Report ---
XR chest 1V portable CLINICAL HISTORY: Shortness of breath. Chest pain. COMPARISON STUDY: Chest CT May 23, 2018. Chest radiograph June 07, 2018. FINDINGS: There is no pneumothorax. There may be small bilateral pleural effusions. Interstitial thic kening has slightly progressed. There are bibasilar opacities. Cardiomegaly is unchanged. IMPRESSION: 1. Slight increase in interstitial thickening which favors pulmonary edema. 2. Bibasilar opacities with small bilateral pleural effusions. Electronically signed by: Eyad Rosario M.D. 06/17/2018 6:35 AM
[2018-06-17] MEDS ORDERED: metOLazone 2.5 MG TABLET PO SCH (08:30)
[2018-06-17] MEDS: INSULIN ASPART 100 UNITS/ML 3 ML PEN SC SCH ×5 (08:47→21:11)
[2018-06-17] MEDS: FUROSEMIDE 80 MG in SYRINGE 0 ML IV SCH ×2 (08:48→16:53)
[2018-06-17] MEDS: HydrALAZINE TAB 50 MG TAB PO SCH ×2 (08:48→21:03)
[2018-06-17] MEDS: SACUBITRIL-VALSARTAN 49/51 MG TAB PO SCH ×2 (08:48→21:03)
[2018-06-17] MEDS: CHOLECALCIFEROL 1,000 UNITS TAB PO SCH ×2 (08:49→21:04)
[2018-06-17] MEDS: ASPIRIN 81 MG ECTAB PO SCH (08:49)
[2018-06-17] MEDS: PANTOprazole 40 MG TAB PO SCH (08:49)
[2018-06-17] MEDS: POTASSIUM CHLORIDE 20 MEQ TABCR PO SCH (08:49)
[2018-06-17] MEDS: BUDESONIDE/FORMOTEROL FUMARATE 160/4.5 60 PUFFS/INHALER INH SCH ×2 (08:50→21:04)
[2018-06-17] MEDS: HEPARIN SOD 5,000 UNIT/0.5 ML VIAL SQ SCH ×2 (08:50→21:04)
[2018-06-17] MEDS: INSULIN GLARGINE SOLOSTAR 100 UNITS/ML 3 ML PEN SC SCH ×2 (08:50→21:02)
[2018-06-17] MEDS ORDERED: SACUBITRIL VALSARTAN PO SCH (09:00)
[2018-06-17] MEDS ORDERED: [UNRECOGNIZED DRUG - OTHER] SQ SCH (09:00)
[2018-06-17] MEDS: METOPROLOL SUCC 50MG EXT REL TAB PO SCH (10:37)
[2018-06-17] MEDS ORDERED: FUROSEMIDE 40 MG/4 ML VIAL IV STA (11:44)
--- NOTE | 2018-06-17 11:52 | Family Medicine Progress Note ---
Date of Service June 17, 2018 Assessment & Plan (1) Shortness of breath: 42-year-old male was admitted on 17 Jun 2018 for shortness of breath and chest pain over past approximately 24 hours. Acute on Chronic Systolic CHF Exacerbation Weight gain of 12kg in 2 wks. Assures me he is compliant with medication, but historically has struggled. Previous Echo Jan 2018 noted EF of 25-30% and moderate to severe global hypokinesis of the left ventricle. On 120mgs lasix bid at home. Started on 80mgs IV bid here. Will increase to 120mgs iv. Continuing home aspirin, hydralazine, metoprolol, potassium, and Entresto. Follows with CHF clinic as outpatient - Corie Mazariegos - to continue to follow here. Acute on Chronic Respiratory Failure Patient on BiPAP currently, says he never is able to sleep on his back but always sitting up in a chair with BiPAP in place. Obesity hypoventilation syndrome, MARIELENA * Patient says he was recently placed on BiPAP at home and says he has been compliant. for the last few days. COPD * Continue home Symbicort and Combivent. * Is followed by Dr. Murray (pulmonology) as outpatient. Elevated troponin: *Admit TnI 0.047 at 0032. *May be acute demand ischemia. EKG is sinus tachycardia, rate 121. *Recheck of troponin was downtrending EKG unchanged Hemoptysis * Underwent further evaluation on last admission received CTA and bronchoscopy with no abnormalities detected * Suspect it is likely due to insufficient humidification of BiPAP leading to epistaxis with post nasal drip HTN,: * Continuing home aspirin, hydralazine, metoprolol, potassium, and Entresto. DM2 * Last HbA1c in chart in April 2018 was 7.4. At home is on Humalog. * Continue Humalog here * insulin aspart sliding scale GERD * Continue home Nexium. Code status: Full code. Diet: Heart healthy, diabetes diet, low sodium. Fluid restrict to 2 L. DVT prophy: Heparin 5000 units twice daily. Disbo: Tele (2) Acute exacerbation of CHF (congestive heart failure): (3) Elevated troponin: (4) Hypertension: (5) Nonischemic cardiomyopathy: (6) DM type 2 (diabetes mellitus, type 2): (7) GERD (gastroesophageal reflux disease): (8) Morbid obesity with body mass index of 50.0-59.9 in adult: (9) Obesity hypoventilation syndrome: (10) Obstructive sleep apnea: (11) COPD (chronic obstructive pulmonary disease): (12) Learning disability: (13) Depression: Supervising Physician Co-Signing Physician Notes Resident Physician Supervision Note: I independently interviewed and examined the patient and verified the caraballo history and physical, reviewed labs and image studies, discussed the case with the resident Dr. Knox and agree with the findings and care plan. Subjective Mr. Huff is feeling very short of breath today, unable to take his CPAP off. Very hard to communicate through the mask, but he did express his current SOB and that he otherwise feels okay. He has been urinating frequently since we started giving him lasix. He is adamant that he has been compliant on his medications and occasionally compliant with his BIPAP especially at night. Review of Systems Constitutional: no fever and no chills Respiratory: + dyspnea and + dyspnea on exertion; no cough and no pain on inspiration Cardiovascular: + chest pain, + radiating jaw, neck or arm pain, + dyspnea at rest, + dyspnea on exertion, + orthopnea and + edema Physical Exam Constitutional: + ill appearing, + morbidly obese and + behavioral limitations Eyes: PERRL, conjunctivae normal, anicteric sclerae Respiratory: + labored breathing and + uses accessory muscles Auscultation: + diminished lung sounds Cardiovascular: Rate/Rhythm: regular rate and regular rhythm Extremities: + edema; no calf tenderness Gastrointestinal (Abdomen): Inspection/Auscultation: abdomen normal to inspection Percussion/Palpation: abdomen soft; abdomen nontender and no guarding Skin: Trauma: + abrasion (Multiple small abrasions of arms and legs) Results & Data Vital Signs (Past 12 Hours) Vital Signs Temp Pulse Pulse Resp BP BP BP 06/17/18 07:31 36.5 C 24 166/135 H 06/17/18 06:20 93 H 06/17/18 04:09 36.3 C L 97 H 32 H 173/131 H 06/17/18 04:06 06/17/18 04:00 96 H 06/17/18 03:55 101 H 26 H 06/17/18 03:35 94 H 24 176/155 H 06/17/18 02:52 85 24 184/135 H 06/17/18 01:56 100 H 24 177/138 H 06/17/18 01:01 103 H 24 155/119 H 06/17/18 00:46 06/17/18 00:41 24 06/17/18 00:37 37 C 116 H 28 H 192/125 H Pulse Ox Pulse Ox 06/17/18 07:31 98 06/17/18 06:20 06/17/18 04:09 96 06/17/18 04:06 96 06/17/18 04:00 06/17/18 03:55 93 06/17/18 03:35 97 06/17/18 02:52 97 06/17/18 01:56 96 06/17/18 01:01 97 06/17/18 00:46 97 06/17/18 00:41 97 06/17/18 00:37 97 Resident Activity Tracking Resident Involvement: Resident Care Provided Care Provided: Adult Hospital Medicine (1) Acute exacerbation of CHF (congestive heart failure) Heart failure type: combined systolic and diastolic Qualified Code(s): I50.43 - Acute on chronic combined systolic (congestive) and diastolic (congestive) heart failure (2) DM type 2 (diabetes mellitus, type 2) Diabetes mellitus complication detail: with other circulatory complications Diabetes mellitus complication status: with circulatory complication Diabetes mellitus prison insulin use: with intermediate project manager use Qualified Code(s): E11.59 - Type 2 diabetes mellitus with other circulatory complications; Z79.4 - intermediate project manager (current) use of insulin (3) GERD (gastroesophageal reflux disease) Esophagitis presence: without esophagitis Qualified Code(s): K21.9 - Gastro- esophageal reflux disease without esophagitis (4) Hypertension Hypertension type: essential hypertension Qualified Code(s): I10 - Essential (primary) hypertension
[2018-06-17] MEDS ORDERED: FUROSEMIDE 40 MG in SYRINGE 0 ML IV ONE (13:00)
[2018-06-17 14:52] LABS: Creatinine Clr Calc Pharmacy 103.2 ml/min; Est GFR (African American) 70.6; Est GFR (Non-African American) 60.9; Potassium 3.8 mmol/L (3.5-5.1)
--- NOTE | 2018-06-17 15:08 | Cardiology Consultation ---
Date of Consultation June 17, 2018 Assessment & Plan (1) Acute exacerbation of CHF (congestive heart failure): He presents with an exacerbation of congestive heart failure and again in weight. From his history I cannot determine why he has had such a large weight gain since he feels that he is controlling his fluid intake and taking his medications. Unfortunately he refuses home health care so we cannot visit him at home to see what is happening with his medications or his diet. I would recommend continued diuresis, he certainly has a lot of excess fluid. (2) Nonischemic cardiomyopathy: He has what appears to be nonischemic cardiomyopathy based on a catheterization elsewhere, the cause of it is not clear but it seems to be of relatively recent onset. It seems that his ejection fraction has stabilized at a significantly reduced level but does not seem to be getting worse. He needs to be on his heart failure medications which at the moment include metoprolol succinate 100 mg twice daily and Entresto. At his size we may be able to i ncrease the metoprolol, since he is somewhat tachycardic that may be a reasonable option but I would probably wait to see what happens with his blood pressure before we do that this admission. (3) Elevated troponin: 1 troponins minimally elevated this admission, I would not pursue further evaluation of this given his negative catheterization recently. History of Present Illness Reason for Consultation: CHF Attending Physician: Amalia Mosley MD History of Present Illness This is a 42-year-old male with severe cognitive dysfunction as well as morbid obesity, sleep apnea for which she has refused treatment, hypertension, diabetes mellitus and hyperlipidemia. He has been difficult to manage as an outpatient and there is always a question of compliance. He has what is presumed to be a nonischemic cardiomyopathy which occurred relatively recently, he may have had a catheterization by report that showed no coronary disease, that would have been done in [place]. From his records I gather that he presented with chest pain and shortness of breath on August 09, 2017 and it was recommended that he undergo catheterization, however he postponed it and went to [place] where he had worsening symptoms and was felt to be in acute congestive heart failure and ultimately he had a catheterization showing no coronary artery disease. His left ventricular ejection fraction on August 26, 2017 was 35 to 40%, on January 21, 2018 was 25 to 30% and he has been treated with heart failure medications although there is a question of compliance. His last admission was May 23, 2018 for severe hypertension and congestive heart failure. He was evaluated by Dr. Polanco on April 30, 2018 for possible ICD implantation. He does not qualify for a biventricular device due to a relatively narrow QRS complex, he was still not on optimal medical therapy and therefore an echocardiogram was scheduled which was performed on June 11, 2018. This shows an ejection fraction of 25 to 30%. All of the echocardiogram since January 2018 are probably within a margin of error of each other. He now presents with shortness of breath and chest pain which has been occurring over the last 24 hours. He tells me that he weighs himself and notes that his weight keeps climbing no matter what he can do. He tells me that he is compliant with his medications. He says that he does not drink excessive fluid, it sounds as though he drinks about three 12 ounce sodas a day, this is perhaps a little bit excessive but if that is always drinking it is not too bad. He does not seem to know his medications so I do not know if he is really taking them. He describes dyspnea on exertion, orthopnea, PND and peripheral edema. His chest discomfort does not sound exertional does not sound cardiac. I suspect it is a sensation of difficulty breathing. Allergies Allergy/AdvReac Type Severity Reaction Status Date / Time ceftriaxone Allergy Severe SHORTNESS Verified 06/17/18 01:38 OF BREATH lidocaine Allergy Severe SHORTNESS Verified 06/17/18 01:38 OF BREATH, diaphoretic, hives procaine Allergy Severe SHORTNESS Verified 06/17/18 01:38 OF BREATH, diaphoretic, hives amoxicillin Allergy Intermediate HIVES/FACIAL Verified 06/17/18 01:38 SWELLING lisinopril Allergy Intermediate HIVES Verified 06/17/18 01:38 albuterol Allergy Mild proair Verified 06/17/18 01:38 "trouble taking breaths" clavulanic acid Allergy Unknown . Verified 06/17/18 01:38 acetaminophen AdvReac Mild NAUSEA Verified 06/17/18 01:38 Home Medications Home Medications Medication Instructions Recorded Confirmed Type Humalog Mix 50-50 KwikPen 125 units SUBCUT QPM 11/28/17 06/17/18 History Humalog Mix 50-50 KwikPen 135 units SUBCUT QAM 11/28/17 06/17/18 History aspirin [Aspirin Low Dose] 81 mg PO QAM 11/28/17 06/17/18 History potassium chloride [Klor-Con M20] 20 meq PO QAM 11/28/17 06/17/18 History furosemide 80 mg PO BID 01/20/18 06/17/18 History metolazone 2.5 mg PO 3XWK 01/20/18 06/17/18 History sacubitril-valsartan 1 tab PO BID 03/08/18 06/17/18 History hydralazine 50 mg PO BID #60 tab 05/26/18 06/17/18 Rx budesonide-formoterol [Symbicort] 2 puff INHALATION BID 06/07/18 06/17/18 History cholecalciferol (vitamin D3) 2,000 units PO BID 06/07/18 06/17/18 History [Vitamin D3] esomeprazole magnesium [Nexium] 20 mg PO QAM 06/07/18 06/17/18 History ipratropium-albuterol [Combivent 1 puff INHALATION Q6H 06/07/18 06/17/18 History Respimat] metoprolol succinate 100 mg PO BID 06/17/18 06/17/18 History Patient History Medical History Hypertension (Acute) CHF (congestive heart failure) (Acute) Hypertensive urgency (Acute) Hemoptysis GERD (gastroesophageal reflux disease) COPD (chronic obstructive pulmonary disease) (Chronic) DM type 2 (diabetes mellitus, type 2) Back pain (Acute) Obstructive sleep apnea (Acute 02/16/11) Morbid obesity with body mass index of 50.0-59.9 in adult Learning disability Cognitive impairment DM II (diabetes mellitus, type II), controlled Depression Fatty liver GERD (gastroesophageal reflux disease) HTN (hypertension) Medical non-compliance Morbid obesity with BMI of 50.0-59.9, adult Nonischemic cardiomyopathy EF 30-35% MARIELENA (obstructive sleep apnea) Does not comply with CPAP Surgical History History of cholecystectomy Family History Other No pertinent family history Social History Preferred Language: Ukrainian Communication Ability: Impaired Communication Ability Comment: impaired due to current respiratory status Visual Impairment: No Limitations Molder Hand Required: No Beliefs That Will Affect Care: None marital status: Current Living Situation: Spouse current occupational status: unemployed Other Information That Helps Us Care for You: No Feels Safe at Home: Yes Safety Concerns: Feels Safe At This Time Smoking Status: Former smoker Tobacco Type: cigarettes Cigarettes Per Day: reports he quit smoking at 14 years old Do You Dip or Chew Tobacco: No Second Hand Exposure: No Hx Alcohol Use: No Hx Substance Use: No Physical Exam Physical Exam: Constitutional: Alert, cooperative and in no distress. He is morbidly obese HEENT: Unremarkable Neck: Jugular venous distention is hard to evaluate, carotid pulses are normal and equal bilaterally without bruits. Pulmonary: Decreased breath sounds on auscultation bilaterally. Cardiac: Regular rhythm with no murmur, gallop or rub. Abdomen: Soft, obese, nontender with normal bowel sounds. Extremities: +3 bilateral pretibial edema. Distal pulses cannot be appreciated. Neurologic: No focal findings. Gait not tested. Skin: No rash, ecchymoses or petechiae. Results & Data Vital Signs (Past 12 Hours) Vital Signs Temp Pulse Pulse Resp BP BP Pulse Ox 06/17/18 12:40 36.9 C 88 22 95 06/17/18 07:31 36.5 C 24 166/135 H 98 06/17/18 06:20 93 H 06/17/18 04:09 36.3 C L 97 H 32 H 173/131 H 96 06/17/18 04:06 06/17/18 04:00 96 H 06/17/18 03:55 101 H 26 H 93 06/17/18 03:35 94 H 24 176/155 H 97 Pulse Ox 06/17/18 12:40 06/17/18 07:31 06/17/18 06:20 06/17/18 04:09 06/17/18 04:06 96 06/17/18 04:00 06/17/18 03:55 06/17/18 03:35 Diagnostic Findings An electrocardiogram on arrival demonstrates sinus tachycardia at 121 bpm, it was repeated about 6 hours later and demonstrated sinus rhythm at 94 bpm, there is one premature ventricular beat. No acute changes on either tracing. Telemetry monitoring demonstrates sinus rhythm and sinus tachycardia with a 4 beat run of nonsustained ventricular tachycardia.. (1) Acute exacerbation of CHF (congestive heart failure) Heart failure type: combined systolic and diastolic Qualified Code(s): I50.43 - Acute on chronic combined systolic (congestive) and diastolic (congestive) heart failure
[2018-06-17] MEDS ORDERED: [UNRECOGNIZED DRUG - OTHER] SQ SCH (21:00)
[2018-06-18] MEDS: IPRATROPIUM BROMIDE/ALBUTEROL respimat INH INH SCH ×2 (05:43→11:54)
[2018-06-18 07:29] LABS: Basophils # (auto) 0.01 K/uL (0-0.2); Basophils % (auto) 0.1 %; Eosinophils # (auto) 0.13 K/uL (0-0.5); Eosinophils % (auto) 1.6 %; Hematocrit (blood only) 44.1 % (42-52); Hemoglobin 15.3 g/dL (14.0-18.0); Immature Granulocytes # (auto) 0.03 K/uL (0.00-0.02); Immature Granulocytes % (auto) 0.4 %; Lymphocytes # (auto) 2.17 K/uL (1.2-3.4); Lymphocytes % (auto) 26.9 %; Mean Corpuscular Hgb Conc 34.7 g/dL (32-36); Mean Corpuscular Volume 84.3 fL (80-100); Mean Platelet Volume 10.2 fL (7.4-10.4); Monocytes # (auto) 0.79 K/uL (0.11-0.59); Monocytes % (auto) 9.8 %; Neutrophils # (auto) 4.93 K/uL (1.4-6.5); Neutrophils % (auto) 61.2 %; Platelet Count 178 K/uL (130-400); RDW Coefficient of Variation 14.4 % (11.5-14.5); RDW Standard Deviation 44.4 fL (36.4-46.3); Red Blood Count 5.23 M/uL (4.7-6.1); White Blood Count 8.06 K/uL (4.8-10.8)
[2018-06-18 08:03] LABS: BUN Creatinine Ratio 19.1 (10-20); Calcium 8.9 mg/dl (8.5-10.1); Creatinine Clr Calc Pharmacy 138.6 ml/min; Est GFR (African American) 105.3; Est GFR (Non-African American) 90.9; Potassium 3.3 mmol/L (3.5-5.1)
[2018-06-18] MEDS: INSULIN ASPART 100 UNITS/ML 3 ML PEN SC SCH ×3 (08:16→16:47)
[2018-06-18] MEDS: SACUBITRIL-VALSARTAN 49/51 MG TAB PO SCH (08:18)
[2018-06-18] MEDS: BUDESONIDE/FORMOTEROL FUMARATE 160/4.5 60 PUFFS/INHALER INH SCH (08:18)
[2018-06-18] MEDS: HydrALAZINE TAB 50 MG TAB PO SCH (08:18)
[2018-06-18] MEDS: METOPROLOL SUCC 50MG EXT REL TAB PO SCH (08:18)
[2018-06-18] MEDS: CHOLECALCIFEROL 1,000 UNITS TAB PO SCH (08:18)
[2018-06-18] MEDS: POTASSIUM CHLORIDE 20 MEQ TABCR PO SCH (08:18)
[2018-06-18] MEDS: PANTOprazole 40 MG TAB PO SCH (08:18)
[2018-06-18] MEDS: ASPIRIN 81 MG ECTAB PO SCH (08:19)
[2018-06-18] MEDS: HEPARIN SOD 5,000 UNIT/0.5 ML VIAL SQ SCH (08:19)
[2018-06-18] MEDS: INSULIN GLARGINE SOLOSTAR 100 UNITS/ML 3 ML PEN SC SCH (08:19)
[2018-06-18] MEDS: FUROSEMIDE 80 MG in SYRINGE 0 ML IV SCH ×2 (08:25→16:48)
[2018-06-18] MEDS ORDERED: FUROSEMIDE 120 MG in SYRINGE 0 ML IV SCH (09:00)
--- NOTE | 2018-06-18 10:52 | Cardiology Progress Note ---
Date of Service June 18, 2018 Assessment & Plan (1) Acute exacerbation of CHF (congestive heart failure): He presents with an exacerbation of congestive heart failure and a gain in weight. From his history I cannot determine why he has had such a large weight gain since he feels that he is controlling his fluid intake and taking his medications. Unfortunately he refuses home health care so we cannot visit him at home to see what is happening with his medications or his diet. He has had a massive diuresis since yesterday, however I would recommend continued diuresis, he certainly has a lot of excess fluid. Perhaps we would want to decrease the amount or frequency of diuretics however so he does not lose too much weight too quickly. His (2) Nonischemic cardiomyopathy: He has what appears to be nonischemic cardiomyopathy based on a rose mary terization elsewhere, the cause of it is not clear but it seems to be of relatively recent onset. It seems that his ejection fraction has stabilized at a significantly reduced level but does not seem to be getting worse. He needs to be on his heart failure medications which at the moment include (according to outpatient notes) metoprolol succinate 100 mg twice daily (although here he is on 150 mg daily) and Entresto. At his size we may be able to increase the metoprolol, since he is somewhat tachycardic that may be a reasonable option. (3) Elevated troponin: 1 troponin is minimally elevated this admission, I would not pursue further evaluation of this given his negative catheterization recently. Subjective He is feeling much better today, his breathing is better and he notes he has loss some of the fluid in his legs. No cardiac complaints today. Physical Exam Physical Exam: Constitutional: Alert, cooperative and in no distress. Pulmonary: Clear to auscultation bilaterally. Cardiac: Regular rhythm with no murmur, gallop or rub. Abdomen: Soft, nontender with normal bowel sounds. Extremities: +3 bilateral pretibial edema. Skin: No rash, ecchymoses or petechiae. Results & Data Vital Signs (Past 12 Hours) Vital Signs Temp Pulse Pulse Resp BP BP Pulse Ox 06/18/18 08:05 36.9 C 78 18 129/68 97 06/18/18 04:00 35.7 C L 64 18 135/98 98 06/18/18 02:57 86 06/18/18 01:58 70 27 H 94 06/18/18 00:02 86 20 97 06/17/18 23:22 36.4 C L 77 133/87 94 Diagnostic Findings Telemetry: Sinus rhythm with PACs primarily, during the night he had periods of junctional bradycardia with a heart rate in the 40s. (1) Acute exacerbation of CHF (congestive heart failure) Heart failure type: combined systolic and diastolic Qualified Code(s): I50.43 - Acute on chronic combined systolic (congestive) and diastolic (congestive) heart failure
[2018-06-18] MEDS ORDERED: METOPROLOL SUCC 50MG EXT REL TAB PO STA (11:00)
--- NOTE | 2018-06-18 21:35 | Discharge Summary ---
Date of Service June 18, 2018 Admission HPI Per Admitting Provider 42-year-old male arrives via EMS complaining of chest pain shortness of breath that began yesterday. Of note, his present history is somewhat limited by his need for current BiPAP. He presently says that his chest pain and shortness of breath have improved since starting BiPAP but he continues to have some discomfort around his left posterior shoulder. He says that he has been compliant with his medications at home as well as use of BiPAP at home. Otherwise he denies any other acute concerns. - In review of the ED note, patient also had complained of increased urinary frequency, difficulty sleeping, bilateral lower extremity swelling, and possibly continued hemoptysis. - In brief review of his discharge summary related to his hospitalization from May 23-, patient was noted to have hypertensive urgency that improved once he started taking his home medications. He was noted to be noncompliant with his home medicines. He was advised to have home health nursing but apparently declined. He was advised to follow-up with the CHF clinic. His learning disability was thought to play a significant role in his noncompliance. --- Past medical history includes hypertension, CHF, hemoptysis, diabetes, GERD, depression. --- Past surgical history includes cholecystectomy. --- Social history includes being a former smoker, some alcohol use, and lives at home. Admission Exam Per Admitting Provider GENERAL: Awake, alert, BiPAP mask in place, does not appear in immediate distress. HENT: Normocephalic, atraumatic. EYES: Normal conjunctiva. Sclera non-icteric. NECK: Inspection normal. Supple and full ROM. No nuchal rigidity. CARDIAC: +S1S2 regular tachycardia, no murmurs. RESPIRATORY: BiPAP presently in place. Minimal breath sounds throughout all lung obrien. Relatively poor respiratory effort but no accessory muscle use or difficulty speaking with BiPAP mask on. GI: +BS, soft, morbidly obese habitus. No tenderness to palpation. No rebound or guarding. EXTREMITIES: 2-3+ bilateral pretibial edema. No calf tenderness. NEURO: No gross neuro deficits. Principal Diagnosis Congestive heart failure, poor control Discharge Exam Constitutional + morbidly obese, + behavioral limitations and comfortable; no acute distress Eyes PERRL, conjunctivae normal, anicteric sclerae Respiratory + uses accessory muscles and able to speak in complete sentences Auscultation: + diminished lung sounds; no crackles, no rales, no rhonchi and no wheezes Cardiovascular Rate/Rhythm: regular rate and regular rhythm Extremities: + edema (Markedly less than day of admission); no calf tenderness Gastrointestinal (Abdomen) Inspection/Auscultation: abdomen normal to inspection Percussion/Palpation: abdomen soft; abdomen nontender and no guarding Skin Trauma: + abrasion (Multiple small abrasions of arms and legs) Discharge Data Allergies Allergy/AdvReac Type Severity Reaction Status Date / Time ceftriaxone Allergy Severe SHORTNESS Verified 06/17/18 01:38 OF BREATH lidocaine Allergy Severe SHORTNESS Verified 06/17/18 01:38 OF BREATH, diaphoretic, hives procaine Allergy Severe SHORTNESS Verified 06/17/18 01:38 OF BREATH, diaphoretic, hives amoxicillin Allergy Intermediate HIVES/FACIAL Verified 06/17/18 01:38 SWELLING lisinopril Allergy Intermediate HIVES Verified 06/17/18 01:38 albuterol Allergy Mild proair Verified 06/17/18 01:38 "trouble taking breaths" clavulanic acid Allergy Unknown . Verified 06/17/18 01:38 acetaminophen AdvReac Mild NAUSEA Verified 06/17/18 01:38 Consultations 06/17/18 01:12 ED Decision to Admit Stat 06/17/18 04:06 Consult Cardiology Routine Hospital Course (1) Shortness of breath: 42-year-old male with PMH of CHF requiring multiple hospitalizations was admitted on 17 Jun 2018 for shortness of breath and chest pain over past approximately 24 hours. Acute Hypoxic/Hypercapnic Respiratory Failure Secondary to CHF exacerbation and underlying MARIELENA Placed on Bipap for 24hrs. On discharge he was saturating well on RA. Acute on Chronic systolic CHF Exacerbation Patient presented two weeks from prior admission 12 Kg heavier than previous admission. 154 up to 166 kg. He was aggressively diuresed and had a net loss of approximately 8.6 liters in 24 hours without a major bump in creatinine. Patient is adamant that he is compliant with his meds at home (lasix 80 mg BID) but he continues to have uncontrolled blood pressures and fluid overload at each of his outpatient appointments with cardiology. After diuresing patient was back to his usual breathing status and adamant that he needed to return home that day. As he had diuresed and we had educated him as well as we could discharged patient to home with the condition that he follow up with me in the clinic we work together to assess what we can do to improve his lifestyle and medication compliance. Elevated troponin: Admit TnI 0.047 at 0032 trended down likely demand ischemia, EKG with no evidence of ischemia Hemoptysis Underwent further evaluation on last admission received CTA and bronchoscopy with no abnormalities detected. Unknown cause likely post nasal drip from epistaxis? HTN, Non ischemic Cardiomyopathy: Followed by CHF clinic as outpatient continue home aspirin, hydralazine, metoprolol, potassium, and Entresto. DM2 Last HbA1c in chart in April 2018 was 7.4. At home is on Humalog. Obesity hypoventilation syndrome, MARIELENA Patient says he was recently placed on BiPAP at home and says he has been compliant. for the last few days. COPD On home Symbicort and Combivent. Will follow with Dr. Murray (pulmonology) as outpatient. (2) Acute exacerbation of CHF (congestive heart failure): (3) Elevated troponin: (4) Hypertension: (5) Nonischemic cardiomyopathy: (6) DM type 2 (diabetes mellitus, type 2): (7) GERD (gastroesophageal reflux disease): (8) Morbid obesity with body mass index of 50.0-59.9 in adult: (9) Obesity hypoventilation syndrome: (10) Obstructive sleep apnea: (11) COPD (chronic obstructive pulmonary disease): (12) Learning disability: (13) Depression: Total Time Total Time Spent Total Time Spent (In Minutes): 35 Total Time Includes: Examination of the Patient, Discharge Planning, Medication Reconciliation and Communication With Other Providers Discharge Plan Discharge Items Patient Disposition: Home - Self-Care Reason For Visit: SOB, CHF EXACERBATION Discharge Diagnosis: Heart Failure Condition: Good Discharge Goals: Improve disease control Activity: Per 'Additional Instructions' section Non-emergency contact: Primary Care Provider and Trauma Nurse Call non-emergency contact if: you have any medication questions Follow-up/Referrals: Corie Mazariegos PA-C [Physician Reed Cleaner] - 07/01/18 3:00 pm (Please, follow up at [facility] Cardiology Office / CHF Clinic with Mariah Mazariegos PA-C on SundayJuly 01 at 3:00 pm. *The office is located in [address] of [facility]. This is the big building located next to this hospital. If you need to change this appointment, call the office at [phone].) Oz Knox MD [Resident] - 06/26/18 2:30 pm (Please, follow up with Dr. Oz Knox (he is the physician who saw you during this hospital stay) on SundayJune 26 at 2:30 pm. *The office is located in [address] of [facility]. This is the big building located next to this hospital. If you need to change this appointment, call the office at [phone].) Diet: Heart Healthy and Low Sodium (2gm) Addtl Provider Instructions: Mr Huff, it is so important that we get a better control on your heart failure. I have scheduled you to see me in my office next week and we can have regular follow up after that. It is my hope we can get you under better control so that these hospital stays become a rarity. We will be increasing your lasix on discharge and I look forward to working with you in the future. LASIX 120 mg BID Prescriptions: Continued aspirin [Aspirin Low Dose] 81 mg Tablet,Delayed Release (Dr/Ec) 81 mg PO QAM RF: 0 potassium chloride [Klor-Con M20] 20 mEq Tablet,Er Particles/Crystals 20 meq PO QAM RF: 0 Humalog Mix 50-50 KwikPen 100 unit/mL (50-50) Insulin Pen 125 units SUBCUT QPM RF: 0 Humalog Mix 50-50 KwikPen 100 unit/mL (50-50) Insulin Pen 135 units SUBCUT QAM RF: 0 metoprolol succinate 100 mg tablet extended release 24 hr 100 mg PO BID RF: 0 metolazone 2.5 mg tablet 2.5 mg PO 3XWK RF: 0 sacubitril-valsartan 97-103 mg Tablet 1 tab PO BID RF: 0 hydralazine 50 mg tablet 50 mg PO BID Qty: 60 RF: 0 esomeprazole magnesium [Nexium] 20 mg Capsule,Delayed Release(Dr/Ec) 20 mg PO QAM RF: 0 cholecalciferol (vitamin D3) [Vitamin D3] 1,000 unit Capsule 2,000 units PO BID RF: 0 Symbicort 160-4.5 mcg/actuation Hfa Aerosol Inhaler 2 puff INHALATION BID RF: 0 Combivent Respimat 20-100 mcg/actuation Mist 1 puff INHALATION Q6H RF: 0 Changed furosemide 40 mg tablet 120 mg PO BID Qty: 0 RF: 0 Stand-Alone Forms: Call Back Authorization, [facility] Discharge Orders: Discharge Order (Routine); Ordered 06/18/18 Ordered By: Oz Knox Admission Data Admit Date/Time: 06/17/18 02:53 Attending Provider: Amalia Mosley Admit Provider: Petr Spencer Primary Care Provider: Markie Briceno Other Providers: Noé Jaquez ; Harry Bush Service: Telemetry Other Interventions: Discharge Summary Assessment (RN) Last Done: 06/18/18 15:58 DC Date/Time DO NOT enter until pt leaves facility: 06/18/18 17:30 Supervising Physician Co-Signing Physician Notes Resident Physician Supervision Note: I independently interviewed and examined the patient and verified the caraballo history and physical, reviewed labs and image studies, discussed the case with the resident Dr. Knox and agree with the findings and care plan. Time spent in discharge 35 min Resident Activity Tracking Resident Involvement: Resident Care Provided Care Provided: Adult Hospital Medicine
--- NOTE | 2018-06-18 22:15 | Heart Failure Progress Note ---
Date of Service June 18, 2018 Assessment & Plan (1) Chronic systolic CHF (congestive heart failure): Patient is symptomatically improved but likely remains hypervolemic. His creatinine remains stable. I have recommended that he continue with IV diuretics until we see his creatinine increase. We have recently increased his outpatient regimen to Lasix 120 mg BID. This should be resumed on discharge. He should continue Metolazone 2.5 mg MWF. Patient continues to assure me that he takes his medications at home. His verifies this. He does not weigh himself on a regular basis so sliding scale diuretic management continues to be a challenge. I have suggested that he call in and report his weight daily to the cardiology nurse team. I had a discussion with the patient today regarding possible in home services. He and his were hesitant but agreeable to this on a short term basis. I did call case management (Tammi) to see if she could set something up for the patient. She was going to further investigate what options were available to him. I think it would beneficial to consider a interdisciplinary team meeting regarding any available options for this patient. If there is a remote monitoring system available, he would be an ideal candidate. I have previously ordered a nutrition consult for Mr. Huff as an outpatient but it has not yet been scheduled. Consider possibly inpatient nutrition consult during his admission. He is high risk for re-admission and I feel a large part of his non-compliance is more diet related as well as his intellectual barriers. Cardiomyopathy- His EF remains low on recent echocardiogram despite target guideline directed therapy. He should continue Entresto 97/103 mg BID. He was previously tolerating Metoprolol 150 mg BID for several months. This was recently reduced to 150 mg once daily at a previous hospital stay due to bradycardia and hypotension. I have recommended that he be discharged on Metoprolol succinate 200 mg once daily for max therapy as well as better chance of compliance per Dr. Bush's recommendation. He may need to be re-considered for ICD since his EF remains low. Non-compliance- This is now the patient's third hospital admission with adequate control of hypertension and heart rate with simply resuming his home regimen. He also diuresed rapidly on almost equivalent doses of Lasix. Patient continues to assure me that he takes his medications at home. His verifies this. I have strongly recommended that they consider some sort of in-home assistance. Disposition: Patient should follow up with the heart failure program within 7 days of discharge, BMP/Mag prior, possibly sooner since he is so high risk for readmission. There was some brief discussion regarding Dr. Knox also seeing this patient on an outpatient basis, possibly home visits? 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 Subjective Mr. Huff is a 42 year old male who is well known to the heart failure program. We have been following him during his hospital stay. Patient appears much improved today. He is no longer requiring BiPAP and has significant improvement in his edema. He is diuresing very well on Lasix 80 mg IV IBD. He is negative 11 L so far this admission. Blood pressure and heart rate have been well controlled. He denies any further episodes of chest pain. Results & Data Vital Signs (Past 12 Hours) Vital Signs Temp Pulse Pulse Resp BP BP Pulse Ox 06/18/18 15:58 36.5 C 82 20 102/73 129/68 92 06/18/18 15:10 36.5 C 82 20 102/73 92 06/18/18 15:09 93 06/18/18 11:51 36.7 C 84 20 121/84 94
[2018-06-19] MEDS ORDERED: METOPROLOL SUCC 50MG EXT REL TAB PO SCH (09:00)
== END 2018-06-18 17:30 | disposition home or self-care (01) | DRG 189 ==
LOC: ED 00:13 → SUATTDRO 02:53 → 2S 02:53
DX: K21.9 Gastro-esophageal reflux disease without esophagitis; F32.9 Major depressive disorder, single episode, unspecified; J96.02 Acute respiratory failure with hypercapnia; E66.2 Morbid (severe) obesity with alveolar hypoventilation; J96.01 Acute respiratory failure with hypoxia; G47.33 Obstructive sleep apnea (adult) (pediatric); E66.01 Morbid (severe) obesity due to excess calories; J44.9 Chronic obstructive pulmonary disease, unspecified; E11.9 Type 2 diabetes mellitus without complications; R04.2 Hemoptysis; I42.9 Cardiomyopathy, unspecified; I13.0 Hypertensive heart and chronic kidney disease with heart failure and stage 1 through stage 4 chronic kidney disease, or unspecified chronic kidney disease; F81.9 Developmental disorder of scholastic skills, unspecified; Z68.43 Body mass index [BMI] 50.0-59.9, adult; I50.23 Acute on chronic systolic (congestive) heart failure; I24.8 Other forms of acute ischemic heart disease

== ENCOUNTER 2018-08-15 22:37 | Inpatient (IN) ==
[2018-08-15] MEDS ORDERED: ALBUT/IPRATROP 3MG/0.5MG NEB 3 ML VIAL INH STA (23:07)
[2018-08-15 23:21] LABS: Basophils # (auto) 0.02 K/uL (0-0.2); Basophils % (auto) 0.2 %; Eosinophils % (auto) 0.9 %; Hematocrit (blood only) 40.9 % (42-52); Hemoglobin 14.2 g/dL (14.0-18.0); Immature Granulocytes # (auto) 0.04 K/uL (0.00-0.02); Immature Granulocytes % (auto) 0.3 %; Lymphocytes # (auto) 2.67 K/uL (1.2-3.4); Lymphocytes % (auto) 23.1 %; Mean Corpuscular Hgb Conc 34.7 g/dL (32-36); Mean Corpuscular Volume 84.7 fL (80-100); Mean Platelet Volume 10.4 fL (7.4-10.4); Monocytes # (auto) 0.75 K/uL (0.11-0.59); Monocytes % (auto) 6.5 %; Neutrophils # (auto) 7.96 K/uL (1.4-6.5); Platelet Count 159 K/uL (130-400); RDW Coefficient of Variation 14.9 % (11.5-14.5); RDW Standard Deviation 45.8 fL (36.4-46.3); Red Blood Count 4.83 M/uL (4.7-6.1); White Blood Count 11.54 K/uL (4.8-10.8)
[2018-08-15 23:51] LABS: Albumin Globulin Ratio 0.9 (0.9-2); Albumin Level 3.4 gm/dl (3.4-5.0); BUN Creatinine Ratio 12.8 (10-20); Bilirubin,Total 0.9 mg/dl (0.2-1); Calcium 8.4 mg/dl (8.5-10.1); Creatinine Clr Calc Pharmacy 141.5 ml/min; Est GFR (African American) 102.9; Est GFR (Non-African American) 88.8; Globulin 3.8 gm/dl (2.5-4.0); Potassium 4.2 mmol/L (3.5-5.1); Total Protein 7.2 gm/dl (6.4-8.2); Troponin I 0.037 ng/ml (0-0.045)
[2018-08-16] MEDS ORDERED: OPTIRAY 320 125ml IV PRN (00:20)
[2018-08-16] MEDS ORDERED: methylPREDNISolone 125 MG/2 ML VIAL IV STA (00:52)
[2018-08-16 01:00] LABS: INR 1.1 (0.9-1.1); Partial Thromboplastin Time 27.8 Seconds (21.0-31.0); Prothrombin Time 10.9 Seconds (9.0-12.0)
[2018-08-16] MEDS ORDERED: NITROGLYCERIN 2% OINTMENT 30GM TUBE EXT ONE (01:04)
--- NOTE | 2018-08-16 02:44 | History & Physical Report ---
Date of Service August 16, 2018 Assessment & Plan (1) Shortness of breath: 42-year-old male was admitted on 16 August 2018 for shortness of breath and pulmonary edema. Of note, he was admitted for the same in June 2018. Shortness of breath, acute on chronic systolic CHF exacerbation, pulmonary e jonathan: Per patient, acutely beginning about 48 hours ago. - Previous reports of medication non-compliance and learning disability. Is followed by the heart failure outpatient clinic. Had his Lasix increased to 120 mg twice daily. Continued on metolazone 2.5 mg p.o. MWF. - In ED, weight is 168.5 kilograms (up from 154.4 kg on last 07May hospital discharge). Afebrile, tachycardic, tachypneic, hypertensive, and was 88% on room air. Improved to 94% on 4 L nasal cannula. WBC 11. BNP 3569. TnI 0.037. Overnight CTA chest was read as no PE, positive cardiomegaly and small bilateral pleural effusions, bilateral pulmonary opacities in combination with groundglass and airspace opacities. Blood culture and lactate ordered. - In ED, treated with DuoNeb, Solu-Medrol 125 mg IV x1, and 1 inch of Nitropaste. - We will start with Lasix 5 mg/hr IV drip with likely need to titrate upwards to match home dosing . Place De Dios catheter. Strict I's and O's as well as daily weights. Check BMP twice a day. Consider increasing his metolazone to daily dosing. - Consult cardiology, as patient said he was due for his outpatient heart failure clinic appointment today (). Hemoptysis: Per patient account over the past 72 hours. Question of jose hemoptysis versus pinkish sputum. Recent history of the same and underwent bronchoscopy on [id number] without evidence of source. May all be due to pulmonary edema. - Will defer re-consulting pulmonology to the primary team. Hypertension: At home is on hydralazine 50 mg 3 times daily, clonidine 0.1 mg daily, metoprolol succinate 100 mg twice daily. Apparently has seen nephrology (Dr. Byrd) for his resistant hypertension but details not acutely available. Some mention that he should be on hydralazine 200 mg twice daily. Present, no a ctive chest pain or acute evidence of end organ dysfunction. - In ED, max BP 191/163. Treated with Nitropaste 1 inch with some improvement. - BP should improve with diuresis. Consider re-dosing nitroglycerin depending on his rate of diuresis. Ongoing medical issues: - Non-ischemic cardiomyopathy: Followed by CHF clinic as outpatient. June 2018 note recommended Entresto 97/103 mg twice daily and metoprolol succinate 200 mg daily. Echo in May 2018 noted EF of 25-30% and moderate to severe global hypokinesis of the left ventricle. - DM2: Last HbA1c in chart in April 2018 was 7.4. At home is on Humalog. --- Continue Humalog here. Added insulin aspart sliding scale here. - GERD: Continue home Nexium. - Obesity, obesity hypoventilation syndrome, MARIELENA: On BiPAP at home though has been noncompliant. Continue here. - COPD: Continue home Symbicort and Combivent. Is followed by Dr. Murray (pulmonology) as outpatient. - Learning disability. Depression. Code status: Full code. Diet: Heart healthy, diabetes diet, low sodium. Fluid restrict to 2 L. DVT prophy: Heparin 5000 units twice daily. PT/OT: Deferred. Disbo: Admit to [facility] telemetry for observation. - Case management consulted. See heart failure progress note on and case management note on about setting up home services. (2) Acute exacerbation of CHF (congestive heart failure): (3) Pulmonary edema: (4) Hemoptysis: (5) Hypertension: (6) Nonischemic cardiomyopathy: (7) Diabetes mellitus, type II: (8) GERD (gastroesophageal reflux disease): (9) Morbid obesity with body mass index of 50.0-59.9 in adult: (10) Obesity hypoventilation syndrome: (11) Obstructive sleep apnea: (12) COPD (chronic obstructive pulmonary disease): History of Present Illness Primary Care Provider: Ilir Qureshi MD 42-year-old male presents the emergency department complaining of shortness of breath over the past 48 hours. He says that he has had some difficulty going up and down stairs without assistance. Says that things "hurt around the heart" because of "gagging". He denies any known fevers but says that he gets hot flashes at times. He also mentions that he has had return of hemoptysis for about 3 days. He says that it looks like sputum and is smaller than the size of a "little cup [making a gesture with his hand about the size of a small shot glass]. Denies vomiting or diarrhea. He says that he has been taking his medicines regularly as prescribed. However, he says he just restarted using his home BiPAP machine this past Sunday after multiple weeks of being off it. No other acute patient concerns. - Past medical history includes hypertension, nonischemic cardiomyopathy, CHF, hemoptysis, diabetes, GERD, depression, obesity, depression, COPD, obesity hypoventilation syndrome, obstructive sleep apnea. - Past surgical history includes cholecystectomy. - Social history includes being a former smoker, some alcohol use, and lives at home. Allergies Allergy/AdvReac Type Severity Reaction Status Date / Time ceftriaxone Allergy Severe SHORTNESS Verified 08/15/18 23:29 OF BREATH lidocaine Allergy Severe SHORTNESS Verified 08/15/18 23:29 OF BREATH, diaphoretic, hives procaine Allergy Severe SHORTNESS Verified 08/15/18 23:29 OF BREATH, diaphoretic, hives amoxicillin Allergy Intermediate HIVES/FACIAL Verified 08/15/18 23:29 SWELLING lisinopril Allergy Intermediate HIVES Verified 08/15/18 23:29 albuterol Allergy Mild proair Verified 08/15/18 23:29 "trouble taking breaths" clavulanic acid Allergy Unknown . Verified 08/15/18 23:29 acetaminophen AdvReac Mild NAUSEA Verified 08/15/18 23:29 Home Medications Home Medications Medication Instructions Recorded Confirmed Type Humalog Mix 50-50 KwikPen 125 units SUBCUT QPM 11/28/17 08/15/18 History Humalog Mix 50-50 KwikPen 135 units SUBCUT QAM 11/28/17 08/15/18 History aspirin [Aspirin Low Dose] 81 mg PO QAM 11/28/17 08/15/18 History potassium chloride [Klor-Con M20] 20 meq PO QAM 11/28/17 08/15/18 History metolazone 2.5 mg PO 3XWK 01/20/18 08/15/18 History sacubitril-valsartan 1 tab PO BID 03/08/18 08/15/18 History Combivent Respimat 1 puff INHALATION Q6H 06/07/18 08/15/18 History Symbicort 2 puff INHALATION BID 06/07/18 08/15/18 History cholecalciferol (vitamin D3) 2,000 units PO BID 06/07/18 08/15/18 History [Vitamin D3] esomeprazole magnesium [Nexium] 20 mg PO QAM 06/07/18 08/15/18 History metoprolol succinate 100 mg PO BID 06/17/18 08/15/18 History furosemide 120 mg PO BID #0 tab 06/18/18 08/15/18 Rx blood sugar diagnostic strips #10 ea 08/06/18 08/15/18 History lancets 33 gauge #100 ea 08/06/18 08/15/18 History clonidine HCl 0.1 mg PO HS 08/15/18 08/15/18 History hydralazine 50 mg PO TID 08/15/18 08/15/18 History Past Med/Surg History Medical History Umbilical hernia (Acute) Tinea corporis (Acute) TMJ (dislocation of temporomandibular joint) (Acute) Sinus tachycardia (Acute) Right-sided sensorineural hearing loss (Acute) Mixed hearing loss of left ear (Acute) Lung nodule (Acute) Dyslipidemia (Acute) Depression with anxiety (Acute) Cluster headache (Acute) Carpal tunnel syndrome (Acute) Bilateral knee pain (Acute) Asthma (Acute) Anemia (Acute) Hemoptysis GERD (gastroesophageal reflux disease) COPD (chronic obstructive pulmonary disease) (Chronic) DM type 2 (diabetes mellitus, type 2) Obstructive sleep apnea (Acute 02/16/11) Morbid obesity with body mass index of 50.0-59.9 in adult Acquired claw toe of left foot (Acute) Acquired claw toe of right foot (Acute) Diabetes mellitus with diabetic polyneuropathy (Acute) Back pain (Resolved) Learning disability (Resolved) Cognitive impairment DM II (diabetes mellitus, type II), controlled Depression Fatty liver GERD (gastroesophageal reflux disease) HTN (hypertension) Medical non-compliance Morbid obesity with BMI of 50.0-59.9, adult Nonischemic cardiomyopathy EF 30-35% MARIELENA (obstructive sleep apnea) Does not comply with CPAP Surgical History History of cholecystectomy Family History Other No pertinent family history Social History Preferred Language: [place] Communication Ability: Effective Visual Impairment: No Limitations Beliefs That Will Affect Care: None marital status: Current Living Situation: Spouse current occupational status: unemployed Feels Safe at Home: Yes Smoking Status: Never smoker Tobacco Type: cigarettes Cigarettes Per Day: reports he quit smoking at 14 years old Second Hand Exposure: No Hx Alcohol Use: No Hx Substance Use: No Review of Systems Review of Systems: Constitutional: Denies fevers, chills, focal weakness Eyes: Denies any visual loss or diplopia ENT: Denies any ear/nose/throat pain or difficulty speaking or swallowing Respiratory: Positive shortness of breath and cough. Positive hemoptysis. Cardiovascular: Positive chest discomfort with shortness of breath. Gastrointestinal: Denies any abdominal pain, nausea/vomiting/diarrhea Musculoskeletal: Denies any acute extremity pains, myalgias, or focal weakness Skin: Denies any known acute rashes or lesions Neuro: Denies any headache, acute focal weakness or numbness, or difficulties with speech or swallow. Physical Exam Physical Exam: GENERAL: Awake, alert, appears mildly chronically unwell due to habitus. Speaking rather easily does not appear in acute distress. HENT: Normocephalic, atraumatic. Oropharynx unremarkable. EYES: Normal conjunctiva. Sclera non-icteric. NECK: Inspection normal. Non-tender. Supple and full ROM. CARDIAC: +S1S2 regular tachycardia, no murmurs. RESPIRATORY: Rales at bilateral bases, though somewhat limited by habitus. Normal respiratory effort. On nasal cannula oxygen. GI: +BS, soft, non-distended. No tenderness to palpation. No rebound or guarding. Obese habitus. EXTREMITIES: 2+ bilateral lower extremity edema. Moves arms easily. NEURO: No gross neuro deficits. Results & Data Vital Signs (Past 12 Hours) Vital Signs Temp Pulse Pulse Pulse Resp Resp BP 08/16/18 01:20 107 H 28 H 08/16/18 00:49 126 H 116 H 28 H 29 H 08/15/18 23:17 116 H 24 08/15/18 22:58 08/15/18 22:48 36.9 C 126 H 31 H 191/163 H BP Pulse Ox Pulse Ox 08/16/18 01:20 164/116 H 94 08/16/18 00:49 170/123 H 92 87 L 08/15/18 23:17 93 08/15/18 22:58 88 L 08/15/18 22:48 88 L Laboratory Results 08/16/18 08/16/18 08/15/18 Range/Units 01:52 00:28 22:45 WBC (4.8-10.8) K/uL RBC (4.7-6.1) M/uL Hgb (14.0-18.0) g/dL Hct (42-52) % MCV (80-100) fL MCH (25-34) pg MCHC (32-36) g/dL RDW Std Deviation (36.4-46.3) fL RDW Coeff of Zoltan (11.5-14.5) % Plt Count (130-400) K/uL MPV (7.4-10.4) fL Immature Gran % (Auto) % Neut % (Auto) % Lymph % (Auto) % Fisher % (Auto) % Eos % (Auto) % Baso % (Auto) % Immature Gran # (Auto) (0.00-0.02) K/uL Neut # (Auto) (1.4-6.5) K/uL Lymph # (Auto) (1.2-3.4) K/uL Fisher # (Auto) (0.11-0.59) K/uL Eos # (Auto) (0-0.5) K/uL Baso # (Auto) (0-0.2) K/uL PT 10.9 INR 1.1 APTT 27.8 PTT Ratio 1.0 Sodium 142 (136-145) mmol/L Potassium 4.2 (3.5-5.1) mmol/L Chloride 109 H (98-107) mmol/L Carbon Dioxide 25 (21-32) mmol/L Anion Gap 8.0 (3-11) BUN 13 (7-18) mg/dl Creatinine 1.04 (0.6-1.4) mg/dl Est Cr Clr Drug Dosing 141.5 ml/min Est GFR ( Amer) 102.9 Est GFR (Non-Af Amer) 88.8 BUN/Creatinine Ratio 12.8 (10-20) Glucose 157 H (70-99) mg/dl Lactate 1.2 (0.4-2.0) mmol/L Calcium 8.4 L (8.5-10.1) mg/dl Total Bilirubin 0.9 (0.2-1) mg/dl AST 24 (15-37) U/L ALT 22 (12-78) U/L Alkaline Phosphatase 97 (45-117) U/L Troponin I 0.037 (0-0.045) ng/ml NT-Pro-B Natriuret Pep 3569 H (0-450) pg/ml Total Protein 7.2 (6.4-8.2) gm/dl Albumin 3.4 (3.4-5.0) gm/dl Globulin 3.8 (2.5-4.0) gm/dl Albumin/Globulin Ratio 0.9 (0.9-2) Specimen Hemolysis 08/15/18 08/15/18 Range/Units 22:45 22:45 WBC 11.54 H (4.8-10.8) K/uL RBC 4.83 (4.7-6.1) M/uL Hgb 14.2 (14.0-18.0) g/dL Hct 40.9 L (42-52) % MCV 84.7 (80-100) fL MCH 29.4 (25-34) pg MCHC 34.7 (32-36) g/dL RDW Std Deviation 45.8 (36.4-46.3) fL RDW Coeff of Ozltan 14.9 H (11.5-14.5) % Plt Count 159 (130-400) K/uL MPV 10.4 (7.4-10.4) fL Immature Gran % (Auto) 0.3 % Neut % (Auto) 69.0 % Lymph % (Auto) 23.1 % Fisher % (Auto) 6.5 % Eos % (Auto) 0.9 % Baso % (Auto) 0.2 % Immature Gran # (Auto) 0.04 H (0.00-0.02) K/uL Neut # (Auto) 7.96 H (1.4-6.5) K/uL Lymph # (Auto) 2.67 (1.2-3.4) K/uL Fisher # (Auto) 0.75 H (0.11-0.59) K/uL Eos # (Auto) 0.10 (0-0.5) K/uL Baso # (Auto) 0.02 (0-0.2) K/uL PT Cancelled INR Cancelled APTT Cancelled PTT Ratio Cancelled Sodium (136-145) mmol/L Potassium (3.5-5.1) mmol/L Chloride (98-107) mmol/L Carbon Dioxide (21-32) mmol/L Anion Gap (3-11) BUN (7-18) mg/dl Creatinine (0.6-1.4) mg/dl Est Cr Clr Drug Dosing ml/min Est GFR ( Amer) Est GFR (Non-Af Amer) BUN/Creatinine Ratio (10-20) Glucose (70-99) mg/dl Lactate (0.4-2.0) mmol/L Calcium (8.5-10.1) mg/dl Total Bilirubin (0.2-1) mg/dl AST (15-37) U/L ALT (12-78) U/L Alkaline Phosphatase (45-117) U/L Troponin I (0-0.045) ng/ml NT-Pro-B Natriuret Pep (0-450) pg/ml Total Protein (6.4-8.2) gm/dl Albumin (3.4-5.0) gm/dl Globulin (2.5-4.0) gm/dl Albumin/Globulin Ratio (0.9-2) Specimen Hemolysis Medications Administered Ioversol (Optiray 320 125ml) 108 ml IV ONCE PRN PRN Reason: Interaction Checking Stop: 08/20/18 00:19 Last Admin: 08/16/18 00:20 Dose: 108 ml Documented by: [id number] Discontinued Medications Albuterol (Duoneb) 3 ml INH NOW STA Stop: 08/15/18 23:08 Last Admin: 08/15/18 23:16 Dose: 3 ml Documented by: [id number] Methylprednisolone (Solumedrol) 125 mg IV NOW STA Stop: 08/16/18 00:53 Last Admin: 08/16/18 01:17 Dose: 125 mg Documented by: [id number] Nitroglycerin (Nitro-Bid 2%) 1 inch EXT NOW ONE Stop: 08/16/18 01:05 Last Admin: 08/16/18 01:17 Dose: 1 inch Documented by: [id number] Code Status & VTE Plan Code Status Full code VTE Prophylaxis Plan VTE Prophylaxis will be ordered: Yes Supervising Physician Co-Signing Physician Notes Patient seen and examined, chart reviewed, case discussed with Dr. Spencer and I agree with his assessment and plan as documented above. Briefly, patient is a 42yo unwell C male with multiple medical problems, most notably NICM with EF of 25-30%, poorly controlled hypertension, COPD, DM. Patient presents today with SOB, hypertensive emergency with pulmonary edema On exam he is afebrile, regular tachycardia at 126bpm, elevated BP 191/163 on arrival, RR of 31, 88% on room air Patient is morbidly obese, in visible respiratory distress, answering questions appropriately HEENT - NC/AT, PERRL, MMM, neck supple, trachea midline, difficult to assess JVD due to body habitus Heart - +S1/S2, regular, tachycardic, no m/r/g Lungs - diminished breath sounds bilaterally, +crackles in bases Abd - Obese, soft, NT/ND Ext - chronic stasis changes Labs and images reviewed. [id number] CXR with bilateral airspace disease most likelyl pulmonary edema CTA chest negative for PE. Small effusions, bilateral pulmonary opacities with groundglass and airspace opacities as well as nodules and septal thickening EKG with ST with PVCs, 115bpm, leftward axis, IR=004, PEG=818, UKx=729, no acute ischemic changes Assessment/Plan: Patient's condition worsened while in the ER, he became more tachypneic and diaphoretic. BP markedly elevated, BS coarse. He was started on Nitro gtt administered IV Ativan, Morphine and Lasix 80mg IV. Placed on BiPAP with improvement in clinical status -Patient to be admitted to MICU -BP control with continuation of home medication, Nitro gtt and diuresis -Lasix 80mg IV given now, gtt ordered for MICU -Remainder of plan as above PG Care Time/CCT Total # of Minutes Spent Total Time Spent with Patient: Total time spent is greater than 50% in coordination of care (as documented) at patient's floor/unit and/or counseling patient: Resident Activity Tracking Resident Involvement: Resident Care Provided Care Provided: Adult Hospital Medicine (1) Acute exacerbation of CHF (congestive heart failure) Heart failure type: combined systolic and diastolic Qualified Code(s): I50.43 - Acute on chronic combined systolic (congestive) and diastolic (congestive) heart failure (2) COPD (chronic obstructive pulmonary disease) COPD type: unspecified COPD Qualified Code(s): J44.9 - Chronic obstructive pulmonary disease, unspecified (3) GERD (gastroesophageal reflux disease) Esophagitis presence: without esophagitis Qualified Code(s): K21.9 - Gastro- esophageal reflux disease without esophagitis
[2018-08-16] MEDS ORDERED: LORazepam 2 MG/4 ML VIAL ONE (03:09)
[2018-08-16] MEDS ORDERED: NITROGLYCERIN SL 0.4 MG/TAB TAB ONE (03:21)
[2018-08-16] MEDS ORDERED: NITROGLYCERIN/D5W 100MCG/ML 250 ML IV SCH (03:45)
[2018-08-16] MEDS: NITROGLYCERIN/D5W 100 MCG/ML BTL ONE ×2 (03:55→04:07)
[2018-08-16] MEDS ORDERED: MoRPHine SULFATE 4 MG/ML 1 ML CARP\\VIAL IV STA (03:57)
[2018-08-16] MEDS ORDERED: FUROSEMIDE 80 MG in SYRINGE 0 ML IV ONE (03:58)
[2018-08-16] MEDS ORDERED: MoRPHine SULFATE 4 MG/ML 1 ML CARP\\VIAL ONE (04:01)
[2018-08-16] MEDS ORDERED: FUROSEMIDE 40 MG/4 ML VIAL IV ONE ×2 (04:01→04:15)
--- NOTE | 2018-08-16 04:31 | Critical Care Consultation ---
Date of Consultation August 16, 2018 Assessment & Plan (1) Acute respiratory failure: Neuro- lethargic likely metabolic encephalopahy with respiratory failure and medications CV- HD stable. Hypertensive. acute on chronic exacerbation of systolic heart failure. BNP 3569 when was 257 2 weeks ago. continue furosemide, nitroglycerin. aspirin Pulmonary- acute on chronic respiratory failure. likely primary pulmonary edema and heart failure. pneumonia is also possible. MARIELENA/OHS is likely contributing as well. continue bipap support. may need intubation. morphine for work of breathing. hemoptysis likely related to pulmonary edema vs infection. COPD albuterol, ipratropium. symbicort - does not appear to be exacerbation ID- no clear infection but pneumonia is possible low threshold for antibiotics. follow cultures Renal- cr ok GI- NPO until respiratory status improves Heme- leukocytosis. heparin proph Endocrine- DM. keep blood sugars <180 Dispo- admit to ICU for ventilatory support I have personally spent 45 minutes of critical care time in the direct management of this patient. This is a life/limb threatening event. This includes time spent evaluating patient, direct bedside care, chart review, placing orders, interpretation of diagnostic studies, discussion with consultants, patient, and/or family members regarding treatment decisions, as well as other required patient management activities. This time is exclusive of all separately billable procedures, and teaching time and separate from and in addition to any other critical care service time. (2) Acute exacerbation of CHF (congestive heart failure): (3) Pulmonary edema: History of Present Illness History of Present Illness 42 y/o male with a history of HTN, MARIELENA, OHS, DM, CHF, COPD/asthma, GERD and morbid obestity who presents complaining of shortness of breath over the last 2 dyays. He has had BRISCOE. He says he has had hemoptysis for the past 3 days. no fevers but complained of hot flashes. intially in the ED he was doing well and getting admitted but then he began to have more shortness of breath and hypertension. He was given lasix and started on bipap and nitroglycerin drip. he is lethargic for me and only answering simple questions. He says that he still feels short of breath. other history obtained from chart Allergies Allergy/AdvReac Type Severity Reaction Status Date / Time ceftriaxone Allergy Severe SHORTNESS Verified 08/15/18 23:29 OF BREATH lidocaine Allergy Severe SHORTNESS Verified 08/15/18 23:29 OF BREATH, diaphoretic, hives procaine Allergy Severe SHORTNESS Verified 08/15/18 23:29 OF BREATH, diaphoretic, hives amoxicillin Allergy Intermediate HIVES/FACIAL Verified 08/15/18 23:29 SWELLING lisinopril Allergy Intermediate HIVES Verified 08/15/18 23:29 albuterol Allergy Mild proair Verified 08/15/18 23:29 "trouble taking breaths" clavulanic acid Allergy Unknown . Verified 08/15/18 23:29 acetaminophen AdvReac Mild NAUSEA Verified 08/15/18 23:29 Home Medications Home Medications Medication Instructions Recorded Confirmed Type Humalog Mix 50-50 KwikPen 125 units SUBCUT QPM 11/28/17 08/15/18 History Humalog Mix 50-50 KwikPen 135 units SUBCUT QAM 11/28/17 08/15/18 History aspirin [Aspirin Low Dose] 81 mg PO QAM 11/28/17 08/15/18 History potassium chloride [Klor-Con M20] 20 meq PO QAM 11/28/17 08/15/18 History metolazone 2.5 mg PO 3XWK 01/20/18 08/15/18 History sacubitril-valsartan 1 tab PO BID 03/08/18 08/15/18 History Combivent Respimat 1 puff INHALATION Q6H 06/07/18 08/15/18 History Symbicort 2 puff INHALATION BID 06/07/18 08/15/18 History cholecalciferol (vitamin D3) 2,000 units PO BID 06/07/18 08/15/18 History [Vitamin D3] esomeprazole magnesium [Nexium] 20 mg PO QAM 06/07/18 08/15/18 History metoprolol succinate 100 mg PO BID 06/17/18 08/15/18 History furosemide 120 mg PO BID #0 tab 06/18/18 08/15/18 Rx blood sugar diagnostic strips #10 ea 08/06/18 08/15/18 History lancets 33 gauge #100 ea 08/06/18 08/15/18 History clonidine HCl 0.1 mg PO HS 08/15/18 08/15/18 History hydralazine 50 mg PO TID 08/15/18 08/15/18 History Patient History Medical History Umbilical hernia (Acute) Tinea corporis (Acute) TMJ (dislocation of temporomandibular joint) (Acute) Sinus tachycardia (Acute) Right-sided sensorineural hearing loss (Acute) Mixed hearing loss of left ear (Acute) Lung nodule (Acute) Dyslipidemia (Acute) Depression with anxiety (Acute) Cluster headache (Acute) Carpal tunnel syndrome (Acute) Bilateral knee pain (Acute) Asthma (Acute) Anemia (Acute) Hemoptysis GERD (gastroesophageal reflux disease) COPD (chronic obstructive pulmonary disease) (Chronic) DM type 2 (diabetes mellitus, type 2) Obstructive sleep apnea (Acute 02/16/11) Morbid obesity with body mass index of 50.0-59.9 in adult Acquired claw toe of left foot (Acute) Acquired claw toe of right foot (Acute) Diabetes mellitus with diabetic polyneuropathy (Acute) Back pain (Resolved) Learning disability (Resolved) Cognitive impairment DM II (diabetes mellitus, type II), controlled Depression Fatty liver GERD (gastroesophageal reflux disease) HTN (hypertension) Medical non-compliance Morbid obesity with BMI of 50.0-59.9, adult Nonischemic cardiomyopathy EF 30-35% MARIELENA (obstructive sleep apnea) Does not comply with CPAP Surgical History History of cholecystectomy Family History Other No pertinent family history Social History Preferred Language: Sinhala Communication Ability: Effective Visual Impairment: No Limitations Beliefs That Will Affect Care: None marital status: Current Living Situation: Spouse current occupational status: unemployed Feels Safe at Home: Yes Smoking Status: Never smoker Tobacco Type: cigarettes Cigarettes Per Day: reports he quit smoking at 14 years old Second Hand Exposure: No Hx Alcohol Use: No Hx Substance Use: No Review of Systems Review of Systems: Unobtainable due to reduced consciousness Physical Exam Physical Exam: Constitutional: uncomfortable diaphoretic on bipap HEENT: normocephalic atraumatic. MMM. no cervical lymphadenopathy CV: RRR nl s1,s2 no murmurs rubs or gallops Lungs: decreased bilaterally with poor air movement. + accessory muscle use Abd: soft nontender nondistended obese. normal bowel sounds Ext" + LE edema. no cyanosis, no clubbing Skin: warm dry Neuro: lethargic but answering simple questions. moving all extremities Psych: lethargic Results & Data Vital Signs (Past 12 Hours) Vital Signs Temp Pulse Pulse Pulse Resp Resp BP 08/16/18 04:16 105 H 33 H 08/16/18 04:06 118 H 33 H 220/163 H 08/16/18 03:56 112 H 29 H 208/154 H 08/16/18 03:51 121 H 31 H 214/151 H 08/16/18 03:46 120 H 35 H 173/143 H 08/16/18 03:41 120 H 26 H 193/137 H 08/16/18 03:33 119 H 33 H 200/159 H 08/16/18 03:30 120 H 28 H 216/187 H 08/16/18 03:26 119 H 29 H 196/162 H 08/16/18 03:17 112 H 30 H 195/159 H 08/16/18 03:04 114 H 26 H 08/16/18 01:20 107 H 28 H 08/16/18 00:49 126 H 116 H 28 H 29 H 08/15/18 23:17 116 H 24 08/15/18 22:58 08/15/18 22:48 36.9 C 126 H 31 H 191/163 H BP Pulse Ox Pulse Ox 08/16/18 04:16 178/129 H 95 08/16/18 04:06 95 08/16/18 03:56 98 08/16/18 03:51 97 08/16/18 03:46 98 08/16/18 03:41 89 L 08/16/18 03:33 93 08/16/18 03:30 91 08/16/18 03:26 91 08/16/18 03:17 92 08/16/18 03:04 190/155 H 93 08/16/18 01:20 164/116 H 94 08/16/18 00:49 170/123 H 92 87 L 08/15/18 23:17 93 08/15/18 22:58 88 L 08/15/18 22:48 88 L Laboratory Results Laboratory Results - last 24 hr 08/15/18 08/15/18 08/15/18 22:45 22:45 22:45 WBC 11.54 H RBC 4.83 Hgb 14.2 Hct 40.9 L MCV 84.7 MCH 29.4 MCHC 34.7 RDW Std Deviation 45.8 RDW Coeff of Zoltan 14.9 H Plt Count 159 MPV 10.4 Immature Gran % (Auto) 0.3 Neut % (Auto) 69.0 Lymph % (Auto) 23.1 Travis % (Auto) 6.5 Eos % (Auto) 0.9 Baso % (Auto) 0.2 Immature Gran # (Auto) 0.04 H Neut # (Auto) 7.96 H Lymph # (Auto) 2.67 Travis # (Auto) 0.75 H Eos # (Auto) 0.10 Baso # (Auto) 0.02 PT Cancelled INR Cancelled APTT Cancelled PTT Ratio Cancelled Sodium 142 Potassium 4.2 Chloride 109 H Carbon Dioxide 25 Anion Gap 8.0 BUN 13 Creatinine 1.04 Est Cr Clr Drug Dosing 141.5 Est GFR ( Amer) 102.9 Est GFR (Non-Af Amer) 88.8 BUN/Creatinine Ratio 12.8 Glucose 157 H Lactate Calcium 8.4 L Total Bilirubin 0.9 AST 24 ALT 22 Alkaline Phosphatase 97 Troponin I 0.037 NT-Pro-B Natriuret Pep 3569 H Total Protein 7.2 Albumin 3.4 Globulin 3.8 Albumin/Globulin Ratio 0.9 Specimen Hemolysis 08/16/18 08/16/18 00:28 01:52 WBC RBC Hgb Hct MCV MCH MCHC RDW Std Deviation RDW Coeff of Zoltan Plt Count MPV Immature Gran % (Auto) Neut % (Auto) Lymph % (Auto) Travis % (Auto) Eos % (Auto) Baso % (Auto) Immature Gran # (Auto) Neut # (Auto) Lymph # (Auto) Travis # (Auto) Eos # (Auto) Baso # (Auto) PT 10.9 INR 1.1 APTT 27.8 PTT Ratio 1.0 Sodium Potassium Chloride Carbon Dioxide Anion Gap BUN Creatinine Est Cr Clr Drug Dosing Est GFR ( Amer) Est GFR (Non-Af Amer) BUN/Creatinine Ratio Glucose Lactate 1.2 Calcium Total Bilirubin AST ALT Alkaline Phosphatase Troponin I NT-Pro-B Natriuret Pep Total Protein Albumin Globulin Albumin/Globulin Ratio Specimen Hemolysis PG Care Time/CCT Critical Care Time: Yes Total Critical Care Time: 45 (1) Acute exacerbation of CHF (congestive heart failure) Heart failure type: combined systolic and diastolic Qualified Code(s): I50.43 - Acute on chronic combined systolic (congestive) and diastolic (congestive) heart failure
[2018-08-16] MEDS ORDERED: ICU PROTOCOL FOR HYPERGLYCEMIA PRN (04:38)
[2018-08-16] MEDS ORDERED: GLUCAGON FOR INJ 1 MG VIAL SQ PRN (05:34)
[2018-08-16] MEDS ORDERED: GLUCOSE 10 TABS/TUBE PO PRN (05:34)
[2018-08-16] MEDS ORDERED: CARBOHYDRATES FOR HYPOGLYCEMIA PO PRN (05:34)
[2018-08-16] MEDS ORDERED: DEXTROSE 50% 50 ML SYRINGE IV PRN (05:34)
[2018-08-16] MEDS ORDERED: ONDANSETRON INJ 2 MG/ML 2 ML VIAL IV PRN (05:34)
[2018-08-16] MEDS ORDERED: GLUCOSE 40% GEL 15 GM TUBE PO PRN (05:34)
--- NOTE | 2018-08-16 05:45 | Emergency Department Note ---
Entered by Renuka Steinberg acting as a scribe for History of Present Illness General Chief complaint: Cardiac Assessment Stated complaint: HEMATEMESIS, CHEST PAIN, HTN Time Seen by Provider: 08/15/18 23:01 Source: patient History of Present Illness Provider complaint: Shortness of breath Onset (ago): day(s) 1 Location: chest Pain Consistency: + intermittent Maximum Pain Intensity: 8 Relieved By: + none Exacerbated By: + movement Associated symptoms: + denies other symptoms; no fever/chills The patient is a 42 y/o male who presents to the emergency department for evaluation of intermittent shortness of breath that began yesterday. The patient states that last night and this morning he began having shortness of breath. He notes that this evening the shortness of breath returned and became worse, as well as coughing up some blood which brought him into the emergency department. The patient reports that he has been so short of breath that he has been having issues going up the stairs at home and kept him up all last night. The patient reports that his left side hurt into his shoulder and arm. He notes he takes a small dose aspirin every day but no blood thinners. He also states that he uses inhalers regularly for his asthma. The patient denies fever, chills, a history of blood clots, and any other symptoms. Home Medications Home Medications Medication Instructions Recorded Confirmed Type Humalog Mix 50-50 KwikPen 125 units SUBCUT QPM 11/28/17 08/15/18 History Humalog Mix 50-50 KwikPen 135 units SUBCUT QAM 11/28/17 08/15/18 History aspirin [Aspirin Low Dose] 81 mg PO QAM 11/28/17 08/15/18 History potassium chloride [Klor-Con M20] 20 meq PO QAM 11/28/17 08/15/18 History metolazone 2.5 mg PO 3XWK 01/20/18 08/15/18 History sacubitril-valsartan 1 tab PO BID 03/08/18 08/15/18 History Combivent Respimat 1 puff INHALATION Q6H 06/07/18 08/15/18 History Symbicort 2 puff INHALATION BID 06/07/18 08/15/18 History cholecalciferol (vitamin D3) 2,000 units PO BID 06/07/18 08/15/18 History [Vitamin D3] esomeprazole magnesium [Nexium] 20 mg PO QAM 06/07/18 08/15/18 History metoprolol succinate 100 mg PO BID 06/17/18 08/15/18 History furosemide 120 mg PO BID #0 tab 06/18/18 08/15/18 Rx blood sugar diagnostic strips #10 ea 08/06/18 08/15/18 History lancets 33 gauge #100 ea 08/06/18 08/15/18 History clonidine HCl 0.1 mg PO HS 08/15/18 08/15/18 History hydralazine 50 mg PO TID 08/15/18 08/15/18 History Allergies Allergy/AdvReac Type Severity Reaction Status Date / Time ceftriaxone Allergy Severe SHORTNESS Verified 08/15/18 23:29 OF BREATH lidocaine Allergy Severe SHORTNESS Verified 08/15/18 23:29 OF BREATH, diaphoretic, hives procaine Allergy Severe SHORTNESS Verified 08/15/18 23:29 OF BREATH, diaphoretic, hives amoxicillin Allergy Intermediate HIVES/FACIAL Verified 08/15/18 23:29 SWELLING lisinopril Allergy Intermediate HIVES Verified 08/15/18 23:29 albuterol Allergy Mild proair Verified 08/15/18 23:29 "trouble taking breaths" clavulanic acid Allergy Unknown . Verified 08/15/18 23:29 acetaminophen AdvReac Mild NAUSEA Verified 08/15/18 23:29 Past Med/Surg History Medical History Umbilical hernia (Acute) Tinea corporis (Acute) TMJ (dislocation of temporomandibular joint) (Acute) Sinus tachycardia (Acute) Right-sided sensorineural hearing loss (Acute) Mixed hearing loss of left ear (Acute) Lung nodule (Acute) Dyslipidemia (Acute) Depression with anxiety (Acute) Cluster headache (Acute) Carpal tunnel syndrome (Acute) Bilateral knee pain (Acute) Asthma (Acute) Anemia (Acute) Hemoptysis GERD (gastroesophageal reflux disease) COPD (chronic obstructive pulmonary disease) (Chronic) DM type 2 (diabetes mellitus, type 2) Obstructive sleep apnea (Acute 02/16/11) Morbid obesity with body mass index of 50.0-59.9 in adult Acquired claw toe of left foot (Acute) Acquired claw toe of right foot (Acute) Diabetes mellitus with diabetic polyneuropathy (Acute) Back pain (Resolved) Learning disability (Resolved) Cognitive impairment DM II (diabetes mellitus, type II), controlled Depression Fatty liver GERD (gastroesophageal reflux disease) HTN (hypertension) Medical non-compliance Morbid obesity with BMI of 50.0-59.9, adult Nonischemic cardiomyopathy EF 30-35% MARIELENA (obstructive sleep apnea) Does not comply with CPAP Surgical History History of cholecystectomy Family History Other No pertinent family history Social History Preferred Language: Slovenian Communication Ability: Effective Visual Impairment: No Limitations Beliefs That Will Affect Care: None marital status: Current Living Situation: Spouse current occupational status: unemployed Feels Safe at Home: Yes Smoking Status: Never smoker Tobacco Type: cigarettes Cigarettes Per Day: reports he quit smoking at 14 years old Second Hand Exposure: No Hx Alcohol Use: No Hx Substance Use: No Review of Systems See HPI for pertinent positives & negatives. and A total of 10 systems reviewed and were otherwise negative Physical Exam Vital Signs Vital Signs - 24 hr 08/15/18 22:48 08/15/18 22:53 08/15/18 22:58 Temperature 36.9 C Temperature Source Oral Sepsis Recent Fever Within 48 Hours No Sepsis New/Unexplained Change in Mental Status No Sepsis Action Taken by Nursing No Action Required Oxygen Flow Rate - Titration 4 Pulse Oximetry Post Tiitration 96 Pulse Rate 126 H Pulse Rate [Exercises] Pulse Rate [Right Radial] Pulse Rhythm Regular Pulse Rhythm [Right Radial] Pulse Strength [Right Radial] Respiratory Rate 31 H Respiratory Rate [Exercises] Respiratory Effort / Characteristics Spontaneous Short of Breath SOB on Exertion Respiratory Depth Deep Deep Respiratory Pattern Regular Blood Pressure 191/163 H Blood Pressure [Right Arm] Blood Pressure Mean 172 Blood Pressure Mean [Right Arm] Pulse Oximetry 88 L 88 L Pulse Oximetry [Exercises] Oxygen Delivery Method Room Air Nasal Cannula Room Air Nasal Cannula Oxygen Flow Rate 4 08/15/18 23:17 08/16/18 00:49 08/16/18 01:20 Temperature Temperature Source Sepsis Recent Fever Within 48 Hours Sepsis New/Unexplained Change in Mental Status Sepsis Action Taken by Nursing Oxygen Flow Rate - Titration Pulse Oximetry Post Tiitration Pulse Rate Pulse Rate [Exercises] 126 H Pulse Rate [Right Radial] 116 H 116 H 107 H Pulse Rhythm Pulse Rhythm [Right Radial] Regular Regular Pulse Strength [Right Radial] Normal Normal Respiratory Rate 24 28 H 28 H Respiratory Rate [Exercises] 29 H Respiratory Effort / Characteristics Non-Labored Spontaneous Short of Breath Short of Breath Respiratory Depth Respiratory Pattern Regular Blood Pressure Blood Pressure [Right Arm] 170/123 H 164/116 H Blood Pressure Mean Blood Pressure Mean [Right Arm] 138 132 Pulse Oximetry 93 92 94 Pulse Oximetry [Exercises] 87 L Oxygen Delivery Method Nasal Cannula Room Air Nasal Cannula Oxygen Flow Rate 4 4 4 GENERAL: morbidly obese male patient who is in moderate respiratory distress HEENT: Head - normocephalic and atraumatic Pupils are equal, round, and reactive to light. Extraocular eye muscles are intact, and sclera are anicteric. Nose - moist nasal mucosa without discharge. Mouth - moist buccal mucosa. Oropharynx is nonerythematous and there is no tonsillar exudate or edema noted. Neck: Supple; no JVD, nuchal rigidity, cervical lymphadenopathy. Heart: Regular rhythm and tachycardic rate. There is a normal S1 and S2 with no murmurs, clicks, or gallops appreciated. Lungs: Distant breath sounds secondary to body habitus, no wheezes or rhonchi. Rales present through all lung field. Abdomen: Soft, completely nontender, nondistended, with good bowel sounds. There are no palpable pulsatile masses or hepatosplenomegaly. There is no guarding, rigidity, or rebound noted. Extremities: No evidence of cyanosis, clubbing, or edema. There are easily pa lpable peripheral pulses. Peripheral vascular skin changes on both legs. Skin: warm and dry with good turgor and no rashes. Course 2303: Past medical records reviewed. The patient was evaluated in room B12. A complete history and physical exam was performed. Laboratory studies were drawn as above. A twelve-lead EKG was obtained as described above. A portable chest x-ray was performed. The patient was placed on supplemental oxygen because he was hypoxic. 2307: I ordered Duoneb 3ml INH 0020: I was concerned for the possibility of a PE. The patient went for a CT angiogram of the chest. 0052: I ordered Solumedrol 125 mg IV 0057: [place] [facility] she will evaluate for further management. She requested medication to decrease the patients blood pressure. 0104: The patient remained hypertensive and I ordered nitroglycerin paste 0309: The patient appeared more short of breath and anxious. I ordered Ativan 1 mg IV. 0321: I ordered Nitrostat 0.4 mg sublingual 0330: The patient is in increased respiratory distress. He was placed on BiPAP. Dr. Burr is at bedside. 0334: I spoke with Dr[facility] Burr as [facility] the patients condition 0343: A nitroglycerin drip was started. A repeat chest x-ray was obtained. 0353: ABG was obtained 0358: ABG with pH 7.3 PCo2 of 43, PO2 of 146. 0400: Patient was given a dose of morphine IV in an effort to reduce his resp iratory rate. Administered Medications Nitroglycerin/Dextrose (Nitroglycerin/D5w 100 Mcg/Ml) 250 mls @ 12 mls/hr IV .[id number] [facility]; Protocol Stop: 09/15/18 03:44 Last Titration: 08/16/18 04:18 Dose: 20 mcg/min, 12 mls/hr Documented by: [id number] Titration: 08/16/18 04:05 Dose: 10 mcg/min, 6 mls/hr Documented by: [id number] Admin: 08/16/18 03:55 Dose: 5 mcg/min, 3 mls/hr Documented by: [id number] Cosigned by: [id number] Ioversol (Optiray 320 125ml) 108 ml IV ONCE PRN PRN Reason: Interaction Checking Stop: 08/20/18 00:19 Last Admin: 08/16/18 00:20 Dose: 108 ml Documented by: [id number] Discontinued Medications Albuterol (Duoneb) 3 ml INH NOW STA Stop: 08/15/18 23:08 Last Admin: 08/15/18 23:16 Dose: 3 ml Documented by: [id number] Furosemide (Lasix) 80 mg IV ONE ONE Stop: 08/16/18 04:16 Last Admin: 08/16/18 04:09 Dose: Not Given Documented by: [id number] Furosemide (Lasix) Confirm Administered Dose 80 mg IV .STK-MED ONE Stop: 08/16/18 04:02 Last Admin: 08/16/18 04:08 Dose: 80 mg Documented by: [id number] Lorazepam (Ativan) Confirm Administered Dose 2 mg .ROUTE .STK-MED ONE Stop: 08/16/18 03:10 Last Admin: 08/16/18 03:11 Dose: 1 mg Documented by: [id number] Methylprednisolone (Solumedrol) 125 mg IV NOW STA Stop: 08/16/18 00:53 Last Admin: 08/16/18 01:17 Dose: 125 mg Documented by: [id number] Morphine Sulfate (Morphine Sulfate) 4 mg IV NOW STA Stop: 08/16/18 03:58 Last Admin: 08/16/18 04:07 Dose: 4 mg Documented by: [id number] Morphine Sulfate (Morphine Sulfate) Confirm Administered Dose 4 mg .ROUTE .STK- MED ONE Stop: 08/16/18 04:02 Last Admin: 08/16/18 04:08 Dose: Not Given Documented by: [id number] Nitroglycerin (Nitro-Bid 2%) 1 inch EXT NOW ONE Stop: 08/16/18 01:05 Last Admin: 08/16/18 01:17 Dose: 1 inch Documented by: [id number] Nitroglycerin (Nitrostat) Confirm Administered Dose 0.4 mg .ROUTE .STK-MED ONE Stop: 08/16/18 03:22 Last Admin: 08/16/18 03:22 Dose: 0.4 mg Documented by: [id number] Nitroglycerin/Dextrose (Nitroglycerin/D5w 100 Mcg/Ml) Confirm Administered Dose 25 mg .ROUTE .STK-MED ONE Stop: 08/16/18 03:54 Last Admin: 08/16/18 04:07 Dose: Not Given Documented by: [id number] Medical Decision Making Differential Diagnosis Differential Diagnosis: asthma exacerbation, CHF, PE, pneumonia, pneumothorax Medical Records Attestation: I reviewed the patient's medical records. Home Medications Current Medication List: was personally reviewed by me Laboratory Data Attestation: I reviewed the patient's lab results. Result diagrams: 08/15/18 22:45 08/15/18 22:45 Lab Results 08/15/18 08/15/18 08/15/18 Range/Units 22:45 22:45 22:45 WBC 11.54 H (4.8-10.8) K/uL RBC 4.83 (4.7-6.1) M/uL Hgb 14.2 (14.0-18.0) g/dL Hct 40.9 L (42-52) % MCV 84.7 (80-100) fL MCH 29.4 (25-34) pg MCHC 34.7 (32-36) g/dL RDW Std Deviation 45.8 (36.4-46.3) fL RDW Coeff of Zoltan 14.9 H (11.5-14.5) % Plt Count 159 (130-400) K/uL MPV 10.4 (7.4-10.4) fL Immature Gran % (Auto) 0.3 % Neut % (Auto) 69.0 % Lymph % (Auto) 23.1 % Kent % (Auto) 6.5 % Eos % (Auto) 0.9 % Baso % (Auto) 0.2 % Immature Gran # (Auto) 0.04 H (0.00-0.02) K/uL Neut # (Auto) 7.96 H (1.4-6.5) K/uL Lymph # (Auto) 2.67 (1.2-3.4) K/uL Kent # (Auto) 0.75 H (0.11-0.59) K/uL Eos # (Auto) 0.10 (0-0.5) K/uL Baso # (Auto) 0.02 (0-0.2) K/uL PT Cancelled INR Cancelled APTT Cancelled PTT Ratio Cancelled Sodium 142 (136-145) mmol/L Potassium 4.2 (3.5-5.1) mmol/L Chloride 109 H (98-107) mmol/L Carbon Dioxide 25 (21-32) mmol/L Anion Gap 8.0 (3-11) BUN 13 (7-18) mg/dl Creatinine 1.04 (0.6-1.4) mg/dl Est Cr Clr Drug Dosing 141.5 ml/min Est GFR ( Amer) 102.9 Est GFR (Non-Af Amer) 88.8 BUN/Creatinine Ratio 12.8 (10-20) Glucose 157 H (70-99) mg/dl Lactate (0.4-2.0) mmol/L Calcium 8.4 L (8.5-10.1) mg/dl Total Bilirubin 0.9 (0.2-1) mg/dl AST 24 (15-37) U/L ALT 22 (12-78) U/L Alkaline Phosphatase 97 (45-117) U/L Troponin I 0.037 (0-0.045) ng/ml NT-Pro-B Natriuret Pep 3569 H (0-450) pg/ml Total Protein 7.2 (6.4-8.2) gm/dl Albumin 3.4 (3.4-5.0) gm/dl Globulin 3.8 (2.5-4.0) gm/dl Albumin/Globulin Ratio 0.9 (0.9-2) Specimen Hemolysis 08/16/18 08/16/18 Range/Units 00:28 01:52 WBC (4.8-10.8) K/uL RBC (4.7-6.1) M/uL Hgb (14.0-18.0) g/dL Hct (42-52) % MCV (80-100) fL MCH (25-34) pg MCHC (32-36) g/dL RDW Std Deviation (36.4-46.3) fL RDW Coeff of Zoltan (11.5-14.5) % Plt Count (130-400) K/uL MPV (7.4-10.4) fL Immature Gran % (Auto) % Neut % (Auto) % Lymph % (Auto) % Kent % (Auto) % Eos % (Auto) % Baso % (Auto) % Immature Gran # (Auto) (0.00-0.02) K/uL Neut # (Auto) (1.4-6.5) K/uL Lymph # (Auto) (1.2-3.4) K/uL Kent # (Auto) (0.11-0.59) K/uL Eos # (Auto) (0-0.5) K/uL Baso # (Auto) (0-0.2) K/uL PT 10.9 INR 1.1 APTT 27.8 PTT Ratio 1.0 Sodium (136-145) mmol/L Potassium (3.5-5.1) mmol/L Chloride (98-107) mmol/L Carbon Dioxide (21-32) mmol/L Anion Gap (3-11) BUN (7-18) mg/dl Creatinine (0.6-1.4) mg/dl Est Cr Clr Drug Dosing ml/min Est GFR ( Amer) Est GFR (Non-Af Amer) BUN/Creatinine Ratio (10-20) Glucose (70-99) mg/dl Lactate 1.2 (0.4-2.0) mmol/L Calcium (8.5-10.1) mg/dl Total Bilirubin (0.2-1) mg/dl AST (15-37) U/L ALT (12-78) U/L Alkaline Phosphatase (45-117) U/L Troponin I (0-0.045) ng/ml NT-Pro-B Natriuret Pep (0-450) pg/ml Total Protein (6.4-8.2) gm/dl Albumin (3.4-5.0) gm/dl Globulin (2.5-4.0) gm/dl Albumin/Globulin Ratio (0.9-2) Specimen Hemolysis Imaging Data Attestation: I personally reviewed and interpreted this imaging study as follows: My Impression: Chest x-ray showed cardiomegaly, Bilateral plural effusions, basal opacities, increased interstitial thickening concerning for increased pulmonary edema. Repeat chest x-ray showed worsening pulmonary edema. Radiologist's Impression: Radiology results as stated below per my review and the radiologist's interpretation: CTA HEAD No pulmonary embolus. Cardiomegaly. Small bilateral pleural effusion. Bilateral pulmonary opacities with combination of groundglass and airspace opacities as well as nodules and septal thickening. Mild gynecomastia. ECG Data Attestation: I personally reviewed and interpreted this ECG as follows: Indication: SOB/dyspnea Rate (beats per minute): 115 Rhythm: sinus tachycardia Findings: + PVC; no ectopy Comparison ECG Date: from (06/18/18) Change: no significant change Blood Pressure Blood Pressure Findings: Elevated blood pressure Blood Pressure Disposition: further management by hospitalist BEENA Cody The patient is a 42 y/o male who presents to the emergency department for evaluation of intermittent shortness of breath that began yesterday. Alok is a chronically ill patient who presents to the emergency department with increasing shortness of breath and hemoptysis. On physical exam, it seemed that the patient was suffering from pulmonary edema. PE study was negative. The patient did have some pink frothy sputum. His blood pressure was significantly elevated. We tried to control this with nitroglycerin paste and sublingual which was unsuccessful. The patient's respiratory status declined while here in the ER. He was placed on BiPAP. This did seem to improve his symptoms. The admitting team gave the patient a dose of IV Lasix but he had not yet began to diurese. A repeat chest x-ray was performed which showed persistent interstitial findings concerning for pulmonary edema. An ABG was obtained which showed a pH of 7.3 and a minimally elevated PCO2. This represents very mild respiratory acidosis. the case was discussed with the political aide and the patient will be admitted to the ICU. Impression & Plan Hypoxia Critical Care Time Critical Care Time: Yes Total Critical Care Time: 70 I have personally spent 70 minutes of critical care time in the direct management of this patient. This includes bedside care, interpretation of diagnostic studies, and testing, discussion with consultants, patient, and fam paul members, and other required patient management activities. This 70 minutes is in excess of all separately billable procedures. Discharge Plan Visit Data Chief Complaint: Cardiac Assessment Stated Complaint: HEMATEMESIS, CHEST PAIN, HTN ED Provider: Cydney Barton Discharge Problem: Hypoxia Patient Disposition: Being Evaluated by Hospitalist Discharge Instructions Interventions: ED Discharge Assessment Last Done: 08/16/18 04:52 The scribe's documentation has been prepared under my direction and personally reviewed by me in its entirety. I confirm that the note above accurately reflects all work, treatment, procedures, and medical decision making performed by me.
[2018-08-16] MEDS ORDERED: FUROSEMIDE 100 MG in DEXTROSE 5% 90 ML IV SCH (06:00)
--- NOTE | 2018-08-16 06:05 | CT Scan Report ---
CT angio chest PE protocol CT DOSE: 1189.05 mGy.cm HISTORY: Dyspnea Dyspnea TECHNIQUE: Multiaxial CT images of the chest were performed following the intravenous administration of contrast to evaluate the pulmonary arteries. Maximal intensity projection images were also obtaine d. A dose lowering technique was utilized adhering to the principles of ALARA. COMPARISON STUDY: 05/23/2018 FINDINGS: No evidence for pulmonary embolus. The thoracic aorta is unremarkable throughout. Findings of pulmonary edema versus diffuse bilateral parenchymal infiltrative change. Small bilateral pleural effusions. Diffuse bilateral parenchymal nodularity slightly progressive from the prior stud y. This again should be monitored closely. IMPRESSION: 1. No evidence of pulmonary embolus. 2. Diffuse bilateral parenchymal infiltrative changes with small bilateral pleural effusions. 3. Somewhat progressive parenchymal nodularity which again should be closely followed. The above report was generated using voice recognition software. It may contain grammatical, syntax or spelling errors. Electronically signed by: Cleveland Concepcion M.D. 08/16/2018 6:04 AM
[2018-08-16 06:23] LABS: Phosphorus 3.7 mg/dl (2.5-4.9); Troponin I 0.032 ng/ml (0-0.045)
[2018-08-16] MEDS: IPRATROPIUM BROMIDE/ALBUTEROL respimat INH INH SCH ×4 (06:29→23:38)
--- NOTE | 2018-08-16 06:42 | XRay Report ---
XR chest 1V portable CLINICAL HISTORY: Dyspnea COMPARISON STUDY: 06/17/2018 FINDINGS: The heart is enlarged. There is radiographic evidence of congestive failure with mild pulmo nary edema. Focal airspace opacities the right lung base are slightly improved. This is consistent wi th improving alveolar edema there is a suspected small right pleural effusion.[ IMPRESSION: Cardiac megaly and radiographic evidence of congestive failure/pulmonary edema. Small rig ht pleural effusion Electronically signed by: Garrett Muniz M.D. 08/16/2018 6:40 AM
--- NOTE | 2018-08-16 06:43 | XRay Report ---
XR chest 1V portable CLINICAL HISTORY: worsening sob COMPARISON STUDY: 08/15/2018 FINDINGS: There is continued radiographic evidence of congestive failure and pulmonary edema. The fin dings remain similar given the differences in technique. The heart remains enlarged.[ IMPRESSION: Cardiomegaly and pulmonary edema pattern similar to the prior study Electronically signed by: Garrett Muniz M.D. 08/16/2018 6:41 AM
[2018-08-16] MEDS ORDERED: INSULIN ASPART 100 UNITS/ML 3 ML PEN SC SCH (07:30)
[2018-08-16] MEDS ORDERED: metOLazone 2.5 MG TABLET PO SCH (08:00)
[2018-08-16] MEDS ORDERED: PHARMACY GLYCEMIC MGMT CONSULT PRN (08:42)
[2018-08-16] MEDS ORDERED: MODERATE STRESS LEVEL ONE (08:56)
[2018-08-16] MEDS ORDERED: INSULIN PROTOCOL GOAL RANGE ONE (08:56)
[2018-08-16] MEDS ORDERED: [UNRECOGNIZED DRUG - OTHER] SQ SCH (09:00)
[2018-08-16] MEDS ORDERED: HEPARIN SOD 5,000 UNIT/0.5 ML VIAL SQ SCH (09:00)
[2018-08-16 09:01] LABS: iSTAT Arterial Blood Gas HCO3 23 meg/L (19-24); iSTAT Arterial Blood Gas pCO2 43 mmHg (35-46); iSTAT Arterial Blood Gas pH 7.33 (7.35-7.45); iSTAT Carbon Dioxide 24 mEq/l (24-31)
[2018-08-16 09:02] LABS: iSTAT Sample Type Arterial
[2018-08-16] MEDS: CHOLECALCIFEROL 1,000 UNITS TAB PO SCH ×2 (09:24→21:26)
[2018-08-16] MEDS: HydrALAZINE TAB 50 MG TAB PO SCH ×3 (09:25→21:26)
[2018-08-16] MEDS: SACUBITRIL-VALSARTAN 49/51 MG TAB PO SCH ×2 (09:25→21:26)
[2018-08-16] MEDS: PANTOprazole 40 MG TAB PO SCH (09:25)
[2018-08-16] MEDS: ASPIRIN 81 MG ECTAB PO SCH (09:25)
[2018-08-16] MEDS: POTASSIUM CHLORIDE 20 MEQ TABCR PO SCH (09:25)
[2018-08-16] MEDS: METOPROLOL SUCC 50MG EXT REL TAB PO SCH ×2 (09:26→21:26)
[2018-08-16] MEDS ORDERED: NovoLIN-R BOLUS FROM BAG IV ONE (09:59)
[2018-08-16] MEDS: INSULIN REGULAR 250 UNITS in SODIUM CHLORIDE 0.9% 247.5 ML IV SCH (10:04)
[2018-08-16] MEDS: BUDESONIDE/FORMOTEROL FUMARATE 160/4.5 60 PUFFS/INHALER INH SCH ×2 (10:14→21:28)
--- NOTE | 2018-08-16 11:06 | Pharmacy Report ---
Pharmacy Glycemic Short Note 2 - Date of Service August 16, 2018 - Glycemic Short BSG Results (Last 24 hours): 08/15/18 08/16/18 22:45 08:12 Glucose 157 H POC Glucose 247 H OUTPATIENT ANTIDIABETIC REGIMEN: * Humalog 50/50 mix: 135 units AM + 125 units PM * A1c = 7.4% 04/16/18 ASSESSMENT: * Type 2 diabetic admitted for acute on chronic respiratory failure * Patient has been followed by Glycemic Control Service on multiple occasions in the past. * BSG 247 this AM, likely due to Solu-Medrol administration in the ED overnight * Patient's appetite is poor this AM and PO intake is uncertain today * Given current BSG and ICU admission, will initiate IV insulin infusion per MODERATE stress protocol as this is the standard of care in this setting * Will also give Lantus this evening in an attempt to make transition off the insulin infusion easier tomorrow PLAN FOR INPATIENT GLYCEMIC CONTROL: * Basal insulin * Lantus 10 units SQ BID - with the insulin drip * IV insulin infusion per Moderate stress protocol, goal range 110-180mg/dL PLAN FOR DISCHARGE: * to be determined
[2018-08-16] MEDS ORDERED: ACETAMINOPHEN 1000 MG/100 ML IV IV PRN (12:07)
[2018-08-16] MEDS: INSULIN ASPART 100 UNITS/ML 3 ML PEN SC SCH ×3 (12:17→21:27)
--- NOTE | 2018-08-16 13:39 | Family Medicine Progress Note ---
Date of Service August 16, 2018 Assessment & Plan (1) Acute respiratory failure: 42 year old male with history of CHF, HTN, DMII, Obesity, intellectual disability, and poor medication compliance who presented to ED with 48 hours of shortness of breath. Acute Hypoxemic Respiratory Failure Secondary to CHF exacerbation Weight up 14 kg since last admission CTA: No PE, Small b/l pleural effusion, Bilateral opacities appearing to be pulmonary edema Required bipap overnight, now 4L nasal cannula Acute on chronic systolic CHF Cardiomyopathy with EF 25-30% left ventricle global hypokinesis Was admitted in June of this year with similar presentation Follows in outpatient cardiology clinic next appt was supposed to be today No evidence of acute ischemia at this time, [place] very slightly elevated at 0.037 which is likely demand from CHF BNP 3569. Currently on lasix drip. Strict I's and O's, Daily Weights Cardiology consulted Home lasix dose 120 mg BID Continue entresto 97 103 Hemoptysis likely secondary to CHF HTN Resistant hypertension Home regimen hydralazine TID, clonidine .1 mg daily, metoprolol 100mg BID and lasix 120 mg BID and entresto 97 103 DM2 Last A1C 7.4 On humalog at home Continuing humalog with sliding scale F/E/N: Carb consistent heart healthy DVT PPx: Heparin Dispo: ICU (2) Nonischemic cardiomyopathy: (3) Pulmonary edema: (4) Shortness of breath: (5) Peripheral neuropathy: (6) Diabetes mellitus, type II: (7) Obstructive sleep apnea: Supervising Physician Co-Signing Physician Notes Resident Physician Supervision Note: I independently interviewed and examined the patient and verified the caraballo history and physical, reviewed labs and image studies, discussed the case with the resident Dr. Knox and agree with the findings and care plan. Subjective See today's H and P Physical Exam Physical Exam: See today's H and P Results & Data Vital Signs (Past 12 Hours) Vital Signs Temp Pulse Pulse Resp BP BP Pulse Ox 08/16/18 12:00 36.8 C 94 H 26 H 173/116 H 96 08/16/18 11:45 107 H 30 H 194/130 H 94 08/16/18 11:30 103 H 28 H 171/128 H 93 08/16/18 11:15 95 H 27 H 175/108 H 95 08/16/18 11:01 92 H 36 H 169/121 H 94 08/16/18 11:00 94 H 23 95 08/16/18 10:45 96 H 23 197/114 H 94 08/16/18 10:30 95 H 21 177/122 H 97 08/16/18 10:15 90 21 165/112 H 96 08/16/18 10:00 96 H 19 158/108 H 98 08/16/18 09:45 96 H 21 165/112 H 95 08/16/18 09:30 92 H 21 158/112 H 96 08/16/18 09:28 92 H 21 163/107 H 96 08/16/18 09:15 92 H 19 163/107 H 95 08/16/18 09:00 96 H 22 168/111 H 95 08/16/18 08:45 93 H 22 158/108 H 96 08/16/18 08:30 92 H 19 161/111 H 96 08/16/18 08:15 92 H 21 156/110 H 97 08/16/18 08:01 36.8 C 94 H 23 164/118 H 94 08/16/18 07:54 90 20 183/128 H 94 08/16/18 07:46 99 H 187/129 H 91 08/16/18 07:39 94 H 22 95 08/16/18 07:30 94 H 190/126 H 93 08/16/18 07:15 94 H 187/123 H 94 08/16/18 07:00 94 H 169/117 H 93 08/16/18 06:00 92 H 22 186/122 H 94 08/16/18 05:39 36.8 C 96 H 22 165/102 H 93 08/16/18 05:23 108 H 27 H 95 08/16/18 04:52 101 H 32 H 172/126 H 92 08/16/18 04:40 104 H 30 H 183/137 H 93 08/16/18 04:16 105 H 33 H 178/129 H 95 08/16/18 04:06 118 H 33 H 220/163 H 95 08/16/18 03:56 112 H 29 H 208/154 H 98 08/16/18 03:51 121 H 31 H 214/151 H 97 08/16/18 03:46 120 H 35 H 173/143 H 98 08/16/18 03:41 120 H 26 H 193/137 H 89 L 08/16/18 03:33 119 H 33 H 200/159 H 93 08/16/18 03:30 120 H 28 H 216/187 H 91 08/16/18 03:26 119 H 29 H 196/162 H 91 08/16/18 03:17 112 H 30 H 195/159 H 92 08/16/18 03:05 36.9 C 08/16/18 03:04 114 H 26 H 190/155 H 93 PG Care Time/CCT Total # of Minutes Spent Total Time Spent with Patient: Total time spent is greater than 50% in coordination of care (as documented) at patient's floor/unit and/or counseling patient: Resident Activity Tracking Resident Involvement: Resident Care Provided Care Provided: Adult Hospital Medicine
[2018-08-16] MEDS ORDERED: METOCLOPRAMIDE HCL INJ 5 MG/ML 2 ML VIAL IV ONE (13:45)
--- NOTE | 2018-08-16 14:40 | Cardiology Consultation ---
Date of Consultation August 16, 2018 Assessment & Plan (1) Nonischemic cardiomyopathy: Cardiac catheterization in [place] did not show any significant CAD. Etiology remains unclear. Most recent echocardiogram demonstrates no improvement in EF despite appropriate guideline based therapy. EF 25-30% in May 2018. Continue high dose Entresto 97/103 mg BID. Continue Metoprolol. Home dose is actually 200 mg daily for improved compliance. Spironolactone is indicated but has been discontinued in the past for unknown reasons, possibly gynecomastia. Could consider re-trial. Could also consider SGLT2 inhibitors as an outpatient. (2) Obstructive sleep apnea: Patient had not been using his BiPAP recently. Could be a contributing factor to his decompensation. He states that it's now back in working order and he is able to use it. (3) Hypertension: He continues to have ED visits and admissions as a result of his ongoing hypertension. He continues to deny non-compliance at home yet on multiple admissions his BP is well controlled on his home regimen. He's actually been hypotensive and bradycardic on previous admissions on his home regimen. We have reached out to his manager of case management (Aubree) but the patient and his have refused all previous in-home services. Encouraged medical compliance. He is currently being managed by Dr. Byrd who has recommended a Clonidine patch. He was better controlled as an outpatient at first but is having difficulty keeping the patches on. (4) Acute exacerbation of CHF (congestive heart failure): Historically difficult to manage due to multiple factors. Today patient does not appear significantly more hypervolemic on exam than he typically does at baseline but he has already diuresed almost 3 L. His exam is difficult given the extent of his obesity. He is often resistant to outpatient efforts of more aggressive therapy. He has refused recommended ED evaluations and has been offered outpatient IV Lasix multiple times in recent weeks. His diuretics have been aggressively titrated from 80 BID up to 160 BID without much change symptomatically or clinically. We have been considering converting him to Bumex to see if he has a better response. Would consider this on discharge. Could also consider the addition of Spironolactone as mentioned above. Patient should also be considered for SGLT2 inhibitors since he's diabetic. I've been hesitant to add additional medications since he's so non-compliant as it is. Again, he often has significant diuresis here, often on less diuretic than ordered at home. Diet and fluid intake continue to be an issue for him. His mental disability, financial limitations, and social issues continue to play a role here. He is unable to read or write. I also feel a larger part is dietary non-compliance due to his lack of understanding low sodium foods and portion sizes. He has seen nutrition as an outpatient. Continue daily standing weights, strict I&O's, heart healthy/low sodium diet, fluid striction (less than 1500 mL) during admission. Would recommend continued diuresis until his creatinine goes up. I discussed this with the patient today and that it might require several days. His wants to be home by Sunday for a visit with base services. Jorge Luis does not need to be there for this. (5) Hemoptysis: Chronic and recurring. Workup thus far has been negative. (6) Morbid obesity with body mass index of 50.0-59.9 in adult: (7) Medical non-compliance: Patient continues to deny non-compliance with his medications. They have refused home services on multiple occasions. They likely would not qualify anyway because they are not home bound and are usually on the go. The patient has multiple services available but has dismissed or refused them in the past. Apparently his previous rn case management, Aubree, has been in contact with them again more recently. He follows with Marcelo, the clinical pharmacist. Case management to follow. Supervising Physician Co-Signing Physician Notes The patient was seen and examined, situation discussed with Corie. Agree with the above assessment. He is markedly fluid overloaded, probably on the basis of noncompliance, and will need to be diuresed. History of Present Illness Reason for Consultation: Heart Failure Attending Physician: Amalia Mosley MD History of Present Illness Mr. Huff is a 42 year old male with a medical history significant for nonischemic cardiomyopathy, chronic systolic congestive heart failure, insulin dependent diabetes mellitus, resistant hypertension, dyslipidemia, MARIELENA, obesity and mental disability. Mr. Huff is well known to the cardiology practice and is seen quite regularly by the heart failure program. He has had multiple hospital admissions and ED visits related to heart failure and resistant hypertension in 2019. He has a history of being non-compliant both with diet and medications. Typically at each admission he diureses easily and blood pressure is well controlled on his home regimen. He has actually been quite stable since his last admission in early June. His discharge weight at that time was 340 lb. His weight fluctuates significantly as an outpatient, at times 10+ lb overnight. His ProBNP on 07/30/18 was actually 257. Patient reports that yesterday morning his weight was 341 lb on his home scale. He started complaining of left sided chest and back pain several days ago as well as hemoptysis. This is a reccuring problem for him, workup thus far has been negative. His weight and lower extremity edema at that time were stable. He was advised by Dr. Qureshi to go to the ED for evaluation earlier this week but the patient "had too much going on." He was admittedly at [facility] the following day at the time of his follow up call. He was scheduled for an outpatient appointment at the heart failure clinic today. Patient stated that he started to become short of breath yesterday morning. He has been having difficulty making it up his stairs at home. He presented to the ED and became acutely more short of breath and more lethargic. He was given Lasix and Nitro. He was requiring BiPAP and was admitted to ICU. Today he is sitting up in bed. He reports he's not feeling well but better than yesterday. He is falling asleep on and off as I asked him questions. He is complaining of a headache today. He denies further chest pain but has left sided lower back pain. He does not appear to be short of breath at rest and can ancelmo erate conversation easily. He is currently on 4 L nasal canula. He feels his lower extremity edema is stable. He is currently on a Lasix drip and is diuresising well, - 2.9 L in less than 24 hours. He continues to report that he took his medications as prescribed at home. He denies significant dietary indiscretion. Allergies Allergy/AdvReac Type Severity Reaction Status Date / Time ceftriaxone Allergy Severe SHORTNESS Verified 08/15/18 23:29 OF BREATH lidocaine Allergy Severe SHORTNESS Verified 08/15/18 23:29 OF BREATH, diaphoretic, hives procaine Allergy Severe SHORTNESS Verified 08/15/18 23:29 OF BREATH, diaphoretic, hives amoxicillin Allergy Intermediate HIVES/FACIAL Verified 08/15/18 23:29 SWELLING lisinopril Allergy Intermediate HIVES Verified 08/15/18 23:29 albuterol Allergy Mild proair Verified 08/15/18 23:29 "trouble taking breaths" clavulanic acid Allergy Unknown . Verified 08/15/18 23:29 acetaminophen AdvReac Mild NAUSEA Verified 08/15/18 23:29 Home Medications Home Medications Medication Instructions Recorded Confirmed Type Humalog Mix 50-50 KwikPen 125 units SUBCUT QPM 11/28/17 08/15/18 History Humalog Mix 50-50 KwikPen 135 units SUBCUT QAM 11/28/17 08/15/18 History aspirin [Aspirin Low Dose] 81 mg PO QAM 11/28/17 08/15/18 History potassium chloride [Klor-Con M20] 20 meq PO QAM 11/28/17 08/15/18 History Combivent Respimat 1 puff INHALATION Q6H 06/07/18 08/15/18 History Symbicort 2 puff INHALATION BID 06/07/18 08/15/18 History cholecalciferol (vitamin D3) 2,000 units PO BID 06/07/18 08/15/18 History [Vitamin D3] esomeprazole magnesium [Nexium] 20 mg PO QAM 06/07/18 08/15/18 History blood sugar diagnostic strips #10 ea 08/06/18 08/15/18 History lancets 33 gauge #100 ea 08/06/18 08/15/18 History bumetanide 4 mg PO BID #120 tab 08/19/18 Rx metoprolol succinate 200 mg PO DAILY #0 tab 08/19/18 08/19/18 Rx sacubitril-valsartan [Entresto] 1 tab PO BID #60 tab 08/19/18 Rx Patient History Medical History Umbilical hernia (Acute) Tinea corporis (Acute) TMJ (dislocation of temporomandibular joint) (Acute) Sinus tachycardia (Acute) Right-sided sensorineural hearing loss (Acute) Mixed hearing loss of left ear (Acute) Lung nodule (Acute) Dyslipidemia (Acute) Depression with anxiety (Acute) Cluster headache (Acute) Carpal tunnel syndrome (Acute) Bilateral knee pain (Acute) Asthma (Acute) Anemia (Acute) Hemoptysis GERD (gastroesophageal reflux disease) COPD (chronic obstructive pulmonary disease) (Chronic) DM type 2 (diabetes mellitus, type 2) Obstructive sleep apnea (Acute 02/16/11) Morbid obesity with body mass index of 50.0-59.9 in adult Acquired claw toe of left foot (Acute) Acquired claw toe of right foot (Acute) Diabetes mellitus with diabetic polyneuropathy (Acute) Back pain (Resolved) Learning disability (Resolved) Cognitive impairment DM II (diabetes mellitus, type II), controlled Depression Fatty liver GERD (gastroesophageal reflux disease) HTN (hypertension) Medical non-compliance Morbid obesity with BMI of 50.0-59.9, adult Nonischemic cardiomyopathy EF 30-35% MARIELENA (obstructive sleep apnea) Does not comply with CPAP Surgical History History of cholecystectomy Family History Other No pertinent family history Social History Preferred Language: Lithuanian Communication Ability: Impaired Visual Impairment: No Limitations Beliefs That Will Affect Care: None marital status: Current Living Situation: Spouse current occupational status: unemployed Feels Safe at Home: Yes Smoking Status: Never smoker Tobacco Type: cigarettes Cigarettes Per Day: reports he quit smoking at 14 years old Second Hand Exposure: No Hx Alcohol Use: No Hx Substance Use: No Review of Systems Review of Systems: As noted in HPI. All other ROS are reviewed and otherwise negative at this time. Physical Exam Physical Exam: General: No acute distress. Alert and oriented. Drowsy. Morbidly obese. HEENT: Head is normal. PERRLA. EOMI. Sclera anicteric. Ears, nose and throat unr emarkable, questionable posterior auricular nodes noted . Mucous membranes moist. Neck: JVD difficult to assess due to thick neck. No carotid bruit. Lungs: Decreased breath sounds throughout but mild bibasilar crackles noted. No rhonchi or wheezes. Cardiac: Regular rate and rhythm. S1-S2 normal. No appreciable murmur, gallop or rub. Abdomen: Soft and nontender. Bowel sounds normal. No abdominal bruit. Obese, large pannus. Extremities: 1+ pretibial edema bilaterally. Skin: Multiple excoriations noted BLE, healing. No erythema, no drainage. Neurologic: No lateralizing changes or focal deficits. Psychiatric: Affect appropriate. Results & Data Vital Signs (Past 12 Hours) Vital Signs Temp Pulse Pulse Resp BP BP Pulse Ox 08/16/18 12:00 36.8 C 94 H 26 H 173/116 H 96 08/16/18 11:45 107 H 30 H 194/130 H 94 08/16/18 11:30 103 H 28 H 171/128 H 93 08/16/18 11:15 95 H 27 H 175/108 H 95 08/16/18 11:01 92 H 36 H 169/121 H 94 08/16/18 11:00 94 H 23 95 08/16/18 10:45 96 H 23 197/114 H 94 08/16/18 10:30 95 H 21 177/122 H 97 08/16/18 10:15 90 21 165/112 H 96 08/16/18 10:00 96 H 19 158/108 H 98 08/16/18 09:45 96 H 21 165/112 H 95 08/16/18 09:30 92 H 21 158/112 H 96 08/16/18 09:28 92 H 21 163/107 H 96 08/16/18 09:15 92 H 19 163/107 H 95 08/16/18 09:00 96 H 22 168/111 H 95 08/16/18 08:45 93 H 22 158/108 H 96 08/16/18 08:30 92 H 19 161/111 H 96 08/16/18 08:15 92 H 21 156/110 H 97 08/16/18 08:01 36.8 C 94 H 23 164/118 H 94 08/16/18 07:54 90 20 183/128 H 94 08/16/18 07:46 99 H 187/129 H 91 08/16/18 07:39 94 H 22 95 08/16/18 07:30 94 H 190/126 H 93 08/16/18 07:15 94 H 187/123 H 94 08/16/18 07:00 94 H 169/117 H 93 08/16/18 06:00 92 H 22 186/122 H 94 08/16/18 05:39 36.8 C 96 H 22 165/102 H 93 08/16/18 05:23 108 H 27 H 95 08/16/18 04:52 101 H 32 H 172/126 H 92 08/16/18 04:40 104 H 30 H 183/137 H 93 08/16/18 04:16 105 H 33 H 178/129 H 95 08/16/18 04:06 118 H 33 H 220/163 H 95 08/16/18 03:56 112 H 29 H 208/154 H 98 08/16/18 03:51 121 H 31 H 214/151 H 97 08/16/18 03:46 120 H 35 H 173/143 H 98 08/16/18 03:41 120 H 26 H 193/137 H 89 L 08/16/18 03:33 119 H 33 H 200/159 H 93 08/16/18 03:30 120 H 28 H 216/187 H 91 08/16/18 03:26 119 H 29 H 196/162 H 91 08/16/18 03:17 112 H 30 H 195/159 H 92 08/16/18 03:05 36.9 C 08/16/18 03:04 114 H 26 H 190/155 H 93 (1) Acute exacerbation of CHF (congestive heart failure) Heart failure type: combined systolic and diastolic Qualified Code(s): I50.43 - Acute on chronic combined systolic (congestive) and diastolic (congestive) heart failure
[2018-08-16 15:32] LABS: Appearance Urine Clear (Clear); Bilirubin Urine Negative (Negative); Blood Urine Negative (Negative); Color Urine Yellow; Glucose Urine UA 1+ (Negative); Ketones Urine Negative (Negative); Leukocyte Esterase Urine Negative (Negative); Nitrite Urine Negative (Negative); Protein Urine Negative (Negative); Specific Gravity Urine 1.012 (1.000-1.030); Urobilinogen Urine Negative (Negative)
[2018-08-16 17:03] LABS: BUN Creatinine Ratio 11.4 (10-20); Calcium 9.1 mg/dl (8.5-10.1); Creatinine Clr Calc Pharmacy 104.2 ml/min; Est GFR (African American) 73.1; Est GFR (Non-African American) 63.1; Potassium 3.8 mmol/L (3.5-5.1)
[2018-08-16] MEDS: HEPARIN SOD 5,000 UNIT/0.5 ML VIAL SQ SCH ×2 (17:28→23:37)
[2018-08-16] MEDS ORDERED: LABETALOL HCL IV 5 MG/ML 20ML IV PRN (19:02)
[2018-08-16] MEDS ORDERED: [UNRECOGNIZED DRUG - OTHER] SQ SCH (21:00)
[2018-08-16] MEDS: cloNIDine HCl 0.1 MG TAB PO SCH (21:26)
[2018-08-16] MEDS: INSULIN GLARGINE SOLOSTAR 100 UNITS/ML 3 ML PEN SC SCH (21:39)
[2018-08-17 04:58] LABS: BUN Creatinine Ratio 19.1 (10-20); Calcium 8.7 mg/dl (8.5-10.1); Creatinine Clr Calc Pharmacy 134.4 ml/min; Est GFR (African American) 99.4; Est GFR (Non-African American) 85.8; Potassium 3.7 mmol/L (3.5-5.1)
[2018-08-17] MEDS: IPRATROPIUM BROMIDE/ALBUTEROL respimat INH INH SCH ×3 (05:54→17:14)
[2018-08-17] MEDS: HEPARIN SOD 5,000 UNIT/0.5 ML VIAL SQ SCH ×3 (05:54→22:19)
[2018-08-17 06:42] LABS: Estimated Average Glucose 171 mg/dl; Hemoglobin A1C 7.6 % (4.5-5.6)
--- NOTE | 2018-08-17 08:21 | Critical Care Progress Note ---
Date of Service August 17, 2018 Assessment & Plan (1) Acute respiratory failure: Neuro- metabolic encephalopahy with respiratory failure and medications- now resolved awake alert CV- HD stable. Hypertensive. acute on chronic exacerbation of systolic heart failure. diuresing very well. >7.5 L UOP yesterday continue furosemide, metolazone aspirin, entresto, metoprolol, hydralazinew= Pulmonary- acute on chronic respiratory failure. likely primary pulmonary edema and heart failure. MARIELENA/OHS is likely contributing as well. greatly improved. continue bipap support if needed. hemoptysis likely related to pulmonary edema no further eval needed unless recurs. COPD albuterol, ipratropium. symbicort - does not appear to be exacerbation ID- no sign infection. follow cultures Renal- cr better GI- diet as tolerated Heme- leukocytosis. heparin proph Endocrine- DM. keep blood sugars <180. transition from insulin drip Dispo- ok for transfer out of ICU (2) Acute exacerbation of CHF (congestive heart failure): (3) Pulmonary edema: Subjective breathing and chest pain improving Physical Exam Physical Exam: Constitutional: uncomfortable diaphoretic on bipap HEENT: normocephalic atraumatic. MMM. no cervical lymphadenopathy CV: RRR nl s1,s2 no murmurs rubs or gallops Lungs: clear to auscultation bilaterally. no accessory muscle use Abd: soft nontender nondistended obese. normal bowel sounds Ext" + LE edema. no cyanosis, no clubbing Skin: warm dry Neuro: awake alert. moving all extremities Psych: lflat affect Results & Data Vital Signs (Past 12 Hours) Vital Signs Temp Pulse Resp BP Pulse Ox 08/17/18 06:00 70 14 139/103 H 98 08/17/18 05:00 64 17 120/85 96 08/17/18 04:00 36.7 C 76 22 131/97 97 08/17/18 03:00 70 22 122/82 97 08/17/18 02:00 77 21 139/79 100 08/17/18 01:00 76 20 130/85 95 08/17/18 00:00 36.7 C 82 20 127/90 97 08/16/18 23:13 85 20 96 08/16/18 23:01 81 15 159/82 H 97 08/16/18 23:00 90 23 93 08/16/18 22:00 94 H 24 154/85 H 97 08/16/18 21:00 94 H 17 165/114 H 97 Laboratory Results Laboratory Results - last 24 hr 08/16/18 08/16/18 08/16/18 03:49 04:09 08:12 Specimen Type Arterial POC pH 7.33 L POC pCO2 43 POC pO2 146 H POC HCO3 23 POC Total CO2 24 POC Base Excess -3.0 Sodium Potassium Chloride Carbon Dioxide Anion Gap BUN Creatinine Est Cr Clr Drug Dosing Est GFR ( Amer) Est GFR (Non-Af Amer) BUN/Creatinine Ratio Glucose POC Glucose 247 H Estimat Average Glucose Hemoglobin A1c POC Lactic Acid Arter 0.92 Calcium Urine Color Urine Appearance Urine pH Ur Specific [place] Urine Protein Urine Glucose (UA) Urine Ketones Urine Blood Urine Nitrite Urine Bilirubin Urine Urobilinogen Ur Leukocyte Esterase 08/16/18 08/16/18 08/16/18 10:51 12:08 13:18 Specimen Type POC pH POC pCO2 POC pO2 POC HCO3 POC Total CO2 POC Base Excess Sodium Potassium Chloride Carbon Dioxide Anion Gap BUN Creatinine Est Cr Clr Drug Dosing Est GFR ( Amer) Est GFR (Non-Af Amer) BUN/Creatinine Ratio Glucose POC Glucose 225 H 249 H 258 H Estimat Average Glucose Hemoglobin A1c POC Lactic Acid Arter Calcium Urine Color Urine Appearance Urine pH Ur Specific [place] Urine Protein Urine Glucose (UA) Urine Ketones Urine Blood Urine Nitrite Urine Bilirubin Urine Urobilinogen Ur Leukocyte Esterase 08/16/18 08/16/18 08/16/18 14:12 15:15 15:22 Specimen Type POC pH POC pCO2 POC pO2 POC HCO3 POC Total CO2 POC Base Excess Sodium Potassium Chloride Carbon Dioxide Anion Gap BUN Creatinine Est Cr Clr Drug Dosing Est GFR ( Amer) Est GFR (Non-Af Amer) BUN/Creatinine Ratio Glucose POC Glucose 272 H 241 H Estimat Average Glucose Hemoglobin A1c POC Lactic Acid Arter Calcium Urine Color Yellow Urine Appearance Clear Urine pH 7.0 Ur Specific [place] 1.012 Urine Protein Negative Urine Glucose (UA) 1+ H Urine Ketones Negative Urine Blood Negative Urine Nitrite Negative Urine Bilirubin Negative Urine Urobilinogen Negative Ur Leukocyte Esterase Negative 08/16/18 08/16/18 08/16/18 16:12 16:35 17:30 Specimen Type POC pH POC pCO2 POC pO2 POC HCO3 POC Total CO2 POC Base Excess Sodium 138 Potassium 3.8 Chloride 99 Carbon Dioxide 28 Anion Gap 11.0 BUN 16 Creatinine 1.38 D Est Cr Clr Drug Dosing 104.2 Est GFR ( Amer) 73.1 Est GFR (Non-Af Amer) 63.1 BUN/Creatinine Ratio 11.4 Glucose 205 H POC Glucose 221 H 208 H Estimat Average Glucose Hemoglobin A1c POC Lactic Acid Arter Calcium 9.1 Urine Color Urine Appearance Urine pH Ur Specific [place] Urine Protein Urine Glucose (UA) Urine Ketones Urine Blood Urine Nitrite Urine Bilirubin Urine Urobilinogen Ur Leukocyte Esterase 08/16/18 08/16/18 08/16/18 18:49 21:00 21:19 Specimen Type POC pH POC pCO2 POC pO2 POC HCO3 POC Total CO2 POC Base Excess Sodium Potassium Chloride Carbon Dioxide Anion Gap BUN Creatinine Est Cr Clr Drug Dosing Est GFR ( Amer) Est GFR (Non-Af Amer) BUN/Creatinine Ratio Glucose POC Glucose 186 H 108 H 107 H Estimat Average Glucose Hemoglobin A1c POC Lactic Acid Arter Calcium Urine Color Urine Appearance Urine pH Ur Specific [place] Urine Protein Urine Glucose (UA) Urine Ketones Urine Blood Urine Nitrite Urine Bilirubin Urine Urobilinogen Ur Leukocyte Esterase 08/16/18 08/16/18 08/16/18 21:35 22:34 23:35 Specimen Type POC pH POC pCO2 POC pO2 POC HCO3 POC Total CO2 POC Base Excess Sodium Potassium Chloride Carbon Dioxide Anion Gap BUN Creatinine Est Cr Clr Drug Dosing Est GFR ( Amer) Est GFR (Non-Af Amer) BUN/Creatinine Ratio Glucose POC Glucose 130 H 158 H 164 H Estimat Average Glucose Hemoglobin A1c POC Lactic Acid Arter Calcium Urine Color Urine Appearance Urine pH Ur Specific [place] Urine Protein Urine Glucose (UA) Urine Ketones Urine Blood Urine Nitrite Urine Bilirubin Urine Urobilinogen Ur Leukocyte Esterase 08/17/18 08/17/18 08/17/18 00:30 01:40 03:43 Specimen Type POC pH POC pCO2 POC pO2 POC HCO3 POC Total CO2 POC Base Excess Sodium Potassium Chloride Carbon Dioxide Anion Gap BUN Creatinine Est Cr Clr Drug Dosing Est GFR ( Amer) Est GFR (Non-Af Amer) BUN/Creatinine Ratio Glucose POC Glucose 149 H 144 H 132 H Estimat Average Glucose Hemoglobin A1c POC Lactic Acid Arter Calcium Urine Color Urine Appearance Urine pH Ur Specific [place] Urine Protein Urine Glucose (UA) Urine Ketones Urine Blood Urine Nitrite Urine Bilirubin Urine Urobilinogen Ur Leukocyte Esterase 08/17/18 08/17/18 08/17/18 04:09 04:09 05:46 Specimen Type POC pH POC pCO2 POC pO2 POC HCO3 POC Total CO2 POC Base Excess Sodium 135 L Potassium 3.7 Chloride 100 Carbon Dioxide 30 Anion Gap 5.0 BUN 20 H Creatinine 1.07 Est Cr Clr Drug Dosing 134.4 Est GFR ( Amer) 99.4 Est GFR (Non-Af Amer) 85.8 BUN/Creatinine Ratio 19.1 Glucose 127 H POC Glucose 124 H Estimat Average Glucose 171 Hemoglobin A1c 7.6 H POC Lactic Acid Arter Calcium 8.7 Urine Color Urine Appearance Urine pH Ur Specific [place] Urine Protein Urine Glucose (UA) Urine Ketones Urine Blood Urine Nitrite Urine Bilirubin Urine Urobilinogen Ur Leukocyte Esterase 08/17/18 07:39 Specimen Type POC pH POC pCO2 POC pO2 POC HCO3 POC Total CO2 POC Base Excess Sodium Potassium Chloride Carbon Dioxide Anion Gap BUN Creatinine Est Cr Clr Drug Dosing Est GFR ( Amer) Est GFR (Non-Af Amer) BUN/Creatinine Ratio Glucose POC Glucose 111 H Estimat Average Glucose Hemoglobin A1c POC Lactic Acid Arter Calcium Urine Color Urine Appearance Urine pH Ur Specific [place] Urine Protein Urine Glucose (UA) Urine Ketones Urine Blood Urine Nitrite Urine Bilirubin Urine Urobilinogen Ur Leukocyte Esterase (1) Acute exacerbation of CHF (congestive heart failure) Heart failure type: combined systolic and diastolic Qualified Code(s): I50.43 - Acute on chronic combined systolic (congestive) and diastolic (congestive) heart failure
--- NOTE | 2018-08-17 08:24 | XRay Report ---
XR chest 1V portable HISTORY: Atypical chest pain COMPARISON: Chest 08/16/2018. FINDINGS: Stable cardiomegaly. The pulmonary edema has almost completely resolved. No pleural effusio ns. No pneumothorax. No new focal lung consolidations. IMPRESSION: Near complete resolution of the pulmonary edema. Electronically signed by: Andrea Bear M.D. 08/17/2018 8:22 AM
[2018-08-17] MEDS: FUROSEMIDE 60 MG in SYRINGE 0 ML IV SCH ×2 (08:56→20:07)
[2018-08-17] MEDS: INSULIN ASPART 100 UNITS/ML 3 ML PEN SC SCH ×5 (08:58→22:51)
[2018-08-17] MEDS: PANTOprazole 40 MG TAB PO SCH (09:01)
[2018-08-17] MEDS: ASPIRIN 81 MG ECTAB PO SCH (09:01)
[2018-08-17] MEDS: SACUBITRIL-VALSARTAN 49/51 MG TAB PO SCH ×2 (09:01→22:20)
[2018-08-17] MEDS: CHOLECALCIFEROL 1,000 UNITS TAB PO SCH ×2 (09:02→22:21)
[2018-08-17] MEDS: HydrALAZINE TAB 50 MG TAB PO SCH ×2 (09:02→13:56)
[2018-08-17] MEDS: BUDESONIDE/FORMOTEROL FUMARATE 160/4.5 60 PUFFS/INHALER INH SCH ×2 (09:03→22:47)
[2018-08-17] MEDS: POTASSIUM CHLORIDE 20 MEQ TABCR PO SCH (09:03)
[2018-08-17] MEDS: INSULIN GLARGINE SOLOSTAR 100 UNITS/ML 3 ML PEN SC SCH ×2 (09:05→22:17)
[2018-08-17] MEDS: METOPROLOL SUCC 50MG EXT REL TAB PO SCH (09:05)
--- NOTE | 2018-08-17 10:32 | Family Medicine Progress Note ---
Date of Service August 17, 2018 Assessment & Plan (1) Medical non-compliance: 42 year old male with history of CHF, HTN, DMII, Obesity, intellectual disability, and poor medication compliance who presented to ED with 48 hours of shortness of breath. Acute Hypoxemic Respiratory Failure Secondary to CHF exacerbation CTA: No PE, Small b/l pleural effusion, Bilateral opacities appearing to be pulmonary edema Required bipap On admission Diuresed 8 L since admission breathing more comfortably Acute on chronic systolic CHF Cardiomyopathy with EF 25-30% left ventricle global hypokinesis Was admitted in June of this year with similar presentation Mild Troponins elevation at 0.037 likely from demand due to CHF BNP 3569. Currently on lasix drip. Strict I's and O's, Daily Weights Cardiology, recommend possibly restarting spironolactone Home lasix dose 120 mg BID Continue entresto 97 103 Hemoptysis likely secondary to CHF Patient is diuresed approximately 8 L since admission weight is down 10 kg will slow down rate of Lasix so as not to overdiurese HTN Resistant hypertension Home regimen hydralazine TID, clonidine .1 mg daily, metoprolol 100mg BID and lasix 120 mg BID and entresto 97 103 DM2 Last A1C 7.4 On humalog at home Patient was on insulin drip overnight will transition to sliding scale and move to the floor Continuing humalog with sliding scale F/E/N: Carb consistent heart healthy DVT PPx: Heparin Dispo: Telemetry (2) Acute respiratory failure: (3) Nonischemic cardiomyopathy: (4) Pulmonary edema: (5) Shortness of breath: (6) Diabetes mellitus, type II: (7) Obstructive sleep apnea: (8) Hypertension: (9) Combined systolic and diastolic heart failure: Supervising Physician Co-Signing Physician Notes Resident Physician Supervision Note: I independently interviewed and examined the patient and verified the caraballo history and physical, reviewed labs and image studies, discussed the case with the resident Dr. Olson and agree with the findings and care plan. Subjective Alok Huff is on BiPap doing much better today than yesterday. He tells me he is no longer having chest pain, he is still short of breath but much better than yesterday. He does not endorse any other symptoms at this time on review of systems and asks if he can get out tomorrow. Review of Systems Review of Systems: All systems reviewed & are unremarkable except as noted in HPI & below Physical Exam Physical Exam: Constitutional: Patient is calm and comfortable sitting up in bed watching TV with BiPAP mask on and in place Eyes: Patient eyes are normal to inspection extraocular movements intact pupils equal round reactive to light icteric sclera Respiratory: Breath sounds somewhat decreased globally crackles bilateral lung bases Cardiovascular: Distant heart sounds likely secondary to obesity S1-S2 normal no murmurs rubs skips or gallops patient does have edema 2+ of the lower leg improved from yesterday GI: Patient has soft nontender abdomen obese Skin: Warm dry and well-perfused no rashes Psych: Patient with very poor judgment and insight, appears to be train situation very superficially Neuro: Patient awake alert oriented x3 Results & Data Vital Signs (Past 12 Hours) Vital Signs Temp Pulse Resp BP Pulse Ox 08/17/18 09:01 79 23 121/72 96 08/17/18 09:00 77 25 H 96 08/17/18 08:00 36.6 C 68 19 129/87 96 08/17/18 07:00 65 16 121/89 99 08/17/18 06:00 70 14 139/103 H 98 08/17/18 05:00 64 17 120/85 96 08/17/18 04:00 36.7 C 76 22 131/97 97 08/17/18 03:00 70 22 122/82 97 08/17/18 02:00 77 21 139/79 100 08/17/18 01:00 76 20 130/85 95 08/17/18 00:00 36.7 C 82 20 127/90 97 08/16/18 23:13 85 20 96 08/16/18 23:01 81 15 159/82 H 97 08/16/18 23:00 90 23 93 PG Care Time/CCT Total # of Minutes Spent Total Time Spent with Patient: Total time spent is greater than 50% in coordination of care (as documented) at patient's floor/unit and/or counseling patient: Resident Activity Tracking Resident Involvement: Resident Care Provided Care Provided: Adult Hospital Medicine
--- NOTE | 2018-08-17 12:21 | Cardiology Progress Note ---
Date of Service August 17, 2018 Assessment & Plan (1) Acute on chronic systolic (congestive) heart failure: He has diuresed nicely and is currently negative 8.1 L from a fluid balance standpoint. Continue to diurese with intravenous diuretic therapy. He has a history of noncompliance and it is not clear if he was taking his medications although he states that he was. Strict I&Os. Daily weights. Low- sodium diet. It is difficult to know on exam his current volume status given his morbid obesity but would continue to diurese with goal fluid balance negative 1-2 L. Monitor electrolytes and renal function. (2) Nonischemic cardiomyopathy: Today he inquired on his own accord about receiving an ICD. He has been seen by electrophysiology in the past. Continue metoprolol succinate and Entresto. No changes made to these doses at this time. (3) Acute respiratory failure: Likely secondary to heart failure as above. Continue to diurese. He has improved. (4) Hypertension: Blood pressure was initially quite elevated but is now normotensive. This has occurred in prior hospitalizations at this well where by resuming his home medications, his blood pressure normalized with no other intervention. During this hospitalization however he has been aggressively diuresed. Noncompliance has been a significant part of his past medical history. Continue current regimen. (5) Sinus bradycardia: He did have sinus bradycardia transiently in the 30s while sleeping. Would continue current dose of metoprolol succinate as his heart rate while awake is normal. Continue to monitor. Disposition: Cardiology will continue to follow. Close follow-up of heart failure program on discharge. Can also follow-up with electrophysiology to discuss ICD again as per patient request. Subjective Breathing is much better. He denies shortness of breath however he remains on supplemental oxygen. He denies chest pain, syncope, near-syncope, palpitations, or bleeding. He continues to diurese well on intravenous Lasix. He inquired about going home tomorrow as he has many things to do at his home. Review of systems: As above. Physical Exam Physical Exam: Gen.: No acute distress. Alert and oriented. HEENT: Anicteric sclera. Neck: Thick neck. Cardiac: Regular. No ectopy. Normal S1-S2. No murmurs, rubs, or gallops. Pulmonary: Clear to auscultation bilaterally without wheezes, rales, or rhonchi. Abdomen: Obese. Soft, nontender, nondistended, with normoactive bowel sounds. No bruits noted. Extremities: 2+ radial pulses bilaterally. 2+ posterior tibialis pulses bi laterally. Trace bilateral lower extremity edema. No cyanosis. Psychiatric: Affect appears appropriate. Results & Data Vital Signs (Past 12 Hours) Vital Signs Temp Pulse Resp BP Pulse Ox 08/17/18 09:01 79 23 121/72 96 08/17/18 09:00 77 25 H 96 08/17/18 08:00 36.6 C 68 19 129/87 96 08/17/18 07:00 65 16 121/89 99 08/17/18 06:00 70 14 139/103 H 98 08/17/18 05:00 64 17 120/85 96 08/17/18 04:00 36.7 C 76 22 131/97 97 08/17/18 03:00 70 22 122/82 97 08/17/18 02:00 77 21 139/79 100 08/17/18 01:00 76 20 130/85 95 Intake & Output 08/15/18 08/16/18 08/17/18 08/18/18 06:59 06:59 06:59 06:59 Intake Total 29.8 / 29.8 1698.843 / 1698.843 31.197 / 31.197 Output Total 2245 / 2245 7625 / 7625 Balance -2215.2 / -2215.2 -5926.157 / -5926.157 31.197 / 31.197 Weight 162.4 kg 158.6 kg Laboratory Results Laboratory Results - last 24 hr 08/16/18 08/16/18 08/16/18 12:08 13:18 14:12 Sodium Potassium Chloride Carbon Dioxide Anion Gap BUN Creatinine Est Cr Clr Drug Dosing Est GFR ( Amer) Est GFR (Non-Af Amer) BUN/Creatinine Ratio Glucose POC Glucose 249 H 258 H 272 H Estimat Average Glucose Hemoglobin A1c Calcium Urine Color Urine Appearance Urine pH Ur Specific [place] Urine Protein Urine Glucose (UA) Urine Ketones Urine Blood Urine Nitrite Urine Bilirubin Urine Urobilinogen Ur Leukocyte Esterase 08/16/18 08/16/18 08/16/18 15:15 15:22 16:12 Sodium Potassium Chloride Carbon Dioxide Anion Gap BUN Creatinine Est Cr Clr Drug Dosing Est GFR ( Amer) Est GFR (Non-Af Amer) BUN/Creatinine Ratio Glucose POC Glucose 241 H 221 H Estimat Average Glucose Hemoglobin A1c Calcium Urine Color Yellow Urine Appearance Clear Urine pH 7.0 Ur Specific [place] 1.012 Urine Protein Negative Urine Glucose (UA) 1+ H Urine Ketones Negative Urine Blood Negative Urine Nitrite Negative Urine Bilirubin Negative Urine Urobilinogen Negative Ur Leukocyte Esterase Negative 08/16/18 08/16/18 08/16/18 16:35 17:30 18:49 Sodium 138 Potassium 3.8 Chloride 99 Carbon Dioxide 28 Anion Gap 11.0 BUN 16 Creatinine 1.38 D Est Cr Clr Drug Dosing 104.2 Est GFR ( Amer) 73.1 Est GFR (Non-Af Amer) 63.1 BUN/Creatinine Ratio 11.4 Glucose 205 H POC Glucose 208 H 186 H Estimat Average Glucose Hemoglobin A1c Calcium 9.1 Urine Color Urine Appearance Urine pH Ur Specific [place] Urine Protein Urine Glucose (UA) Urine Ketones Urine Blood Urine Nitrite Urine Bilirubin Urine Urobilinogen Ur Leukocyte Esterase 08/16/18 08/16/18 08/16/18 21:00 21:19 21:35 Sodium Potassium Chloride Carbon Dioxide Anion Gap BUN Creatinine Est Cr Clr Drug Dosing Est GFR ( Amer) Est GFR (Non-Af Amer) BUN/Creatinine Ratio Glucose POC Glucose 108 H 107 H 130 H Estimat Average Glucose Hemoglobin A1c Calcium Urine Color Urine Appearance Urine pH Ur Specific [place] Urine Protein Urine Glucose (UA) Urine Ketones Urine Blood Urine Nitrite Urine Bilirubin Urine Urobilinogen Ur Leukocyte Esterase 08/16/18 08/16/18 08/17/18 22:34 23:35 00:30 Sodium Potassium Chloride Carbon Dioxide Anion Gap BUN Creatinine Est Cr Clr Drug Dosing Est GFR ( Amer) Est GFR (Non-Af Amer) BUN/Creatinine Ratio Glucose POC Glucose 158 H 164 H 149 H Estimat Average Glucose Hemoglobin A1c Calcium Urine Color Urine Appearance Urine pH Ur Specific [place] Urine Protein Urine Glucose (UA) Urine Ketones Urine Blood Urine Nitrite Urine Bilirubin Urine Urobilinogen Ur Leukocyte Esterase 08/17/18 08/17/18 08/17/18 01:40 03:43 04:09 Sodium 135 L Potassium 3.7 Chloride 100 Carbon Dioxide 30 Anion Gap 5.0 BUN 20 H Creatinine 1.07 Est Cr Clr Drug Dosing 134.4 Est GFR ( Amer) 99.4 Est GFR (Non-Af Amer) 85.8 BUN/Creatinine Ratio 19.1 Glucose 127 H POC Glucose 144 H 132 H Estimat Average Glucose Hemoglobin A1c Calcium 8.7 Urine Color Urine Appearance Urine pH Ur Specific [place] Urine Protein Urine Glucose (UA) Urine Ketones Urine Blood Urine Nitrite Urine Bilirubin Urine Urobilinogen Ur Leukocyte Esterase 08/17/18 08/17/18 08/17/18 04:09 05:46 07:39 Sodium Potassium Chloride Carbon Dioxide Anion Gap BUN Creatinine Est Cr Clr Drug Dosing Est GFR ( Amer) Est GFR (Non-Af Amer) BUN/Creatinine Ratio Glucose POC Glucose 124 H 111 H Estimat Average Glucose 171 Hemoglobin A1c 7.6 H Calcium Urine Color Urine Appearance Urine pH Ur Specific [place] Urine Protein Urine Glucose (UA) Urine Ketones Urine Blood Urine Nitrite Urine Bilirubin Urine Urobilinogen Ur Leukocyte Esterase 08/17/18 11:47 Sodium Potassium Chloride Carbon Dioxide Anion Gap BUN Creatinine Est Cr Clr Drug Dosing Est GFR ( Amer) Est GFR (Non-Af Amer) BUN/Creatinine Ratio Glucose POC Glucose 85 Estimat Average Glucose Hemoglobin A1c Calcium Urine Color Urine Appearance Urine pH Ur Specific [place] Urine Protein Urine Glucose (UA) Urine Ketones Urine Blood Urine Nitrite Urine Bilirubin Urine Urobilinogen Ur Leukocyte Esterase Diagnostic Findings Echo 06/11/2018: Moderately dilated left ventricle. Moderately to severely reduced systolic function. EF 25-30%. Global hypokinesis. Moderately dilated RV with mildly reduced systolic function. Moderate biatrial dilation. RVSP 30- 40. Telemetry personally reviewed. Telemetry: Sinus rhythm. No arrhythmia. ECGs personally reviewed: ECG 08/17/2018: Sinus rhythm 70 bpm. Lateral T-wave inversion. ECG 08/15/2018: Sinus tachycardia 115 bpm. PVC. Lateral T-wave inversion. Medications Administered Current Inpatient Medications Acetaminophen (Ofirmev) 1,000 mg IV Q6H PRN PRN Reason: Headache Stop: 09/15/18 12:06 Albuterol (Combivent Respimat) 1 puffs INH Q6H [facility] Stop: 09/15/18 05:59 Last Admin: 08/17/18 12:04 Dose: 1 puffs Documented by: Aspirin (Ecotrin Ectab) 81 mg PO QAM [facility] Stop: 09/15/18 08:59 Last Admin: 08/17/18 09:01 Dose: 81 mg Documented by: Budesonide/Formoterol Fumarate (Symbicort 160mcg/4.5mcg) 2 puffs INH BID [facility] Stop: 09/15/18 08:59 Last Admin: 08/17/18 09:03 Dose: 2 puffs Documented by: Clonidine HCl (Catapres) 0.1 mg PO HS [facility] Stop: 09/15/18 20:59 Last Admin: 08/16/18 21:26 Dose: 0.1 mg Documented by: Dextrose (Dextrose 50%) 25 - 50 ml IV UD PRN; Protocol PRN Reason: Hypoglycemia Protocol Stop: 09/15/18 05:33 Glucagon (Glucagen) 1 mg SQ UD PRN; Protocol PRN Reason: Hypoglycemia Protocol Stop: 09/15/18 05:33 Glucose (Glucose 40%) 15 - 30 gm PO UD PRN; Protocol PRN Reason: Hypoglycemia Protocol Stop: 09/15/18 05:33 Glucose (Dex4 Glucose) 4 - 8 tabs PO UD PRN; Protocol PRN Reason: Hypoglycemia Protocol Stop: 09/15/18 05:33 Heparin Sodium (Porcine) (Heparin Sodium (Porcine)) 5,000 units SQ Q8 [facility] Stop: 09/15/18 15:29 Last Admin: 08/17/18 05:54 Dose: 5,000 units Documented by: Hydralazine HCl (Apresoline) 50 mg PO TID [facility] Stop: 09/15/18 08:59 Last Admin: 08/17/18 09:02 Dose: 50 mg Documented by: Nitroglycerin/Dextrose (Nitroglycerin/D5w 100 Mcg/Ml) 250 mls @ 0 mls/hr IV .Q0M [facility]; Protocol Stop: 09/15/18 03:44 Last Titration: 08/16/18 14:50 Dose: 0 mcg/min, 0 mls/hr Documented by: Insulin Human Regular 250 (units/ Sodium Chloride) 250 mls @ 2 mls/hr IV .Q24H [facility]; Protocol Stop: 09/15/18 09:59 Last Titration: 08/17/18 11:52 Dose: 2 units/hr, 2 mls/hr Documented by: Furosemide 60 mg/ Syringe 6 mls @ 4 mls/min IV Q12H [facility] Stop: 09/16/18 08:29 Last Admin: 08/17/18 08:56 Dose: 4 mls/min Documented by: Insulin Aspart (Novolog Flexpen) 0 units SC ACHS [facility] Stop: 09/15/18 11:29 Last Admin: 08/17/18 12:06 Dose: 11 units Documented by: Insulin Glargine (Lantus Solostar Pen) 10 units SC BID [facility] Stop: 09/15/18 20:59 Last Admin: 08/17/18 09:05 Dose: 10 units Documented by: Ioversol (Optiray 320 125ml) 108 ml IV ONCE PRN PRN Reason: Interaction Checking Stop: 08/20/18 00:19 Last Admin: 08/16/18 00:20 Dose: 108 ml Documented by: Labetalol HCl (Normodyne) 20 mg IV Q6H PRN PRN Reason: SBP >180 Stop: 09/15/18 19:01 Metolazone (Zaroxolyn) 2.5 mg PO MoWeFr@0800 [facility] Stop: 09/15/18 07:59 Last Admin: 08/16/18 09:25 Dose: 2.5 mg Documented by: Metoprolol Succinate (Toprol Xl) 100 mg PO BID [facility] Stop: 09/15/18 08:59 Last Admin: 08/17/18 09:05 Dose: 100 mg Documented by: Miscellaneous (Carbohydrates For Hypoglycemia) 15 - 30 gm PO UD PRN PRN Reason: Hypoglycemia Treatment Stop: 09/15/18 05:33 Miscellaneous Information (Consult Glycemic Management Pharmacy) 1 ea N/A UD PRN PRN Reason: Consult Stop: 09/15/18 08:41 Ondansetron HCl (Zofran) 4 mg IV Q6H PRN PRN Reason: Nausea Stop: 09/15/18 05:33 Pantoprazole Sodium (Protonix) 40 mg PO DAILY [facility] Stop: 09/15/18 08:59 Last Admin: 08/17/18 09:01 Dose: 40 mg Documented by: Potassium Chloride (Klor-Con M20) 20 meq PO QAM [facility] Stop: 09/15/18 08:59 Last Admin: 08/17/18 09:03 Dose: 20 meq Documented by: Sacubitril/Valsartan (Entresto 49/51mg) 2 tab PO BID [facility] Stop: 09/15/18 08:59 Last Admin: 08/17/18 09:01 Dose: 2 tab Documented by: Vitamin D (Vitamin D3) 2,000 units PO BID [facility] Stop: 09/15/18 08:59 Last Admin: 08/17/18 09:02 Dose: 2,000 units Documented by:
--- NOTE | 2018-08-17 14:12 | Pharmacy Report ---
Glycemic Control Progress Note - Date of Service August 17, 2018 - Scope Glycemic Pharmacist consulted for glycemic control to write orders per [facility] inpatient glycemic control protocol. - Objective Accuchecks BSG(last 24 hours):: 08/16/18 08/16/18 08/16/18 14:12 15:22 16:12 Glucose POC Glucose 272 H 241 H 221 H 08/16/18 08/16/18 08/16/18 16:35 17:30 18:49 Glucose 205 H POC Glucose 208 H 186 H 08/16/18 08/16/18 08/16/18 21:00 21:19 21:35 Glucose POC Glucose 108 H 107 H 130 H 08/16/18 08/16/18 08/17/18 22:34 23:35 00:30 Glucose POC Glucose 158 H 164 H 149 H 08/17/18 08/17/18 08/17/18 01:40 03:43 04:09 Glucose 127 H POC Glucose 144 H 132 H 08/17/18 08/17/18 08/17/18 05:46 07:39 11:47 Glucose POC Glucose 124 H 111 H 85 08/17/18 08/17/18 12:55 13:50 Glucose POC Glucose 123 H 150 H HbA1c:: Hemoglobin A1c 7.6 % (4.5-5.6) H 08/17/18 04:09 - Recent Pertinent Medications The patient is currently receiving: * Basal insulin: Lantus 10 units every 12 hours * Correctional Insulin: Novolog Correction per scale ACHS Goal Range: Low 110 mg/dL - High 180 mg/dL Correction Factor: (per protocol) mg/dL/unit * Prandial insulin: Per carb ratio of 1 unit per (per protocol) grams C HO consumed * Insulin infusion - stable at 4.9 units/hr since 2100 - Outpatient Anti-Diabetic Meds Humalog 50/50 mix: 135 units in the morning and 125 units in the PM - Assessment & Plan ASSESSMENT: * See progress note from 08/16/18 for more background info, in short: * Pt receiving SQ basal bolus insulin regimen for hyperglycemia secondary to baseline DM (outpatient regimen on hold) plus Solu-Medrol 125 mg IV x 1 on 08/16/18 * Patient is currently receiving an average of 35 units of insulin per day SQ plus insulin infusion at stable rate of 4.9 units/hr * 10 units of basal insulin * 25 units of prandial/correctional insulin * BSGs ranging 107 - 258 mg/dl over the past 24hrs * Changes needed to insulin regimen: * AM Fasting BSG = 127 mg/dl. This is within goal range for patient based on inpatient targets and co-morbidities.Continued with basal rate of 10 units SQ BID for this morning. Increase to 12 units BID for tonight as previous admissions suggest an appropriate basal rate of 25 units/day. * Post-prandial BSGs cannot be evaluated. Fixed carbohydrate ratio of 6 for now due to steroids. * Total daily dose = ~40 units once steroids have worn off * Additional notes / comments: Patient is currently on insulin infusion on top of basal insulin. Nurse was instructed to hold this morning while insulin was infusing at 4.9 units/hr. Cannot stop infusion whenever it is at such an aggressive rate. * instructed nursing to reduce rate to 2 units/hr and fixed carbohydrate ratio at 1 unit per 6 grams of carbohydrates consumed. * nursing will call when the the insulin adjustment calculator instructs them to hold again - at that point recommend the following: * if rate is greater than 2 units/hr, reduce rate to 1 unit/hr * if rate is 2 units/hr, reduce rate to 1 unit/hr * if rate is less than 2 units/hr, discontinue insulin infusion * this is being done to prevent rebound hypoglycemia. Aggressive carbohydrate utilized to prevent blood sugar spikes after meals. PLAN FOR INPATIENT GLYCEMIC CONTROL: * INCREASING Lantus to 12 units SQ BID * Continuing carb ratio of 1 unit per 6 grams CHO consumed * Continuing goal range to Low 110 mg/dL - High 180 mg/dL for insulin infusion * once insulin infusion is stopped recommend the following Novolog parameters: * CF of 20 * CR of 8 * goal range of 110-140 mg/dL RECOMMENDATIONS FOR DISCHARGE: * Patient's HbA1C reasonably controlled. It is creeping up slightly so recommend follow-up with provider managing blood sugars Thank you.
[2018-08-17 17:09] LABS: BUN Creatinine Ratio 22.6 (10-20); Calcium 8.7 mg/dl (8.5-10.1); Creatinine Clr Calc Pharmacy 121.2 ml/min; Est GFR (African American) 89.2; Potassium 4.8 mmol/L (3.5-5.1)
[2018-08-17] MEDS: INSULIN REGULAR 250 UNITS in SODIUM CHLORIDE 0.9% 247.5 ML IV SCH (22:16)
[2018-08-18] MEDS: INSULIN ASPART 100 UNITS/ML 3 ML PEN SC SCH ×6 (00:27→21:06)
[2018-08-18] MEDS: IPRATROPIUM BROMIDE/ALBUTEROL respimat INH INH SCH ×4 (00:35→17:29)
[2018-08-18] MEDS: METOPROLOL SUCC 50MG EXT REL TAB PO SCH ×3 (02:20→21:08)
[2018-08-18] MEDS: HydrALAZINE TAB 50 MG TAB PO SCH ×2 (02:20→09:31)
[2018-08-18] MEDS: cloNIDine HCl 0.1 MG TAB PO SCH ×2 (02:20→21:04)
[2018-08-18 04:35] LABS: BUN Creatinine Ratio 25.4 (10-20); Calcium 8.3 mg/dl (8.5-10.1); Creatinine Clr Calc Pharmacy 100.5 ml/min; Est GFR (African American) 71.2; Est GFR (Non-African American) 61.4
[2018-08-18 05:00] LABS: Potassium 3.4 mmol/L (3.5-5.1)
[2018-08-18] MEDS: HEPARIN SOD 5,000 UNIT/0.5 ML VIAL SQ SCH ×3 (06:39→21:09)
[2018-08-18] MEDS: PANTOprazole 40 MG TAB PO SCH (08:09)
[2018-08-18] MEDS: CHOLECALCIFEROL 1,000 UNITS TAB PO SCH ×2 (08:09→21:08)
[2018-08-18] MEDS: POTASSIUM CHLORIDE 20 MEQ TABCR PO SCH (08:09)
[2018-08-18] MEDS: SACUBITRIL-VALSARTAN 49/51 MG TAB PO SCH ×2 (08:10→21:04)
[2018-08-18] MEDS: ASPIRIN 81 MG ECTAB PO SCH (08:10)
[2018-08-18] MEDS: BUDESONIDE/FORMOTEROL FUMARATE 160/4.5 60 PUFFS/INHALER INH SCH ×2 (08:11→21:06)
[2018-08-18] MEDS: INSULIN GLARGINE SOLOSTAR 100 UNITS/ML 3 ML PEN SC SCH ×2 (08:11→21:05)
--- NOTE | 2018-08-18 08:41 | Pharmacy Report ---
Glycemic Control Progress Note - Date of Service August 18, 2018 - Scope Glycemic Pharmacist consulted for glycemic control to write orders per [facility] inpatient glycemic control protocol. - Objective Accuchecks BSG(last 24 hours):: 08/17/18 08/17/18 08/17/18 11:47 12:55 13:50 Glucose POC Glucose 85 123 H 150 H 08/17/18 08/17/18 08/17/18 15:00 16:23 17:05 Glucose 145 H POC Glucose 130 H 115 H 08/17/18 08/17/18 08/18/18 19:16 21:25 00:11 Glucose POC Glucose 150 H 105 H 125 H 08/18/18 08/18/18 08/18/18 03:47 03:51 07:29 Glucose 156 H POC Glucose 149 H 153 H HbA1c:: Hemoglobin A1c 7.6 % (4.5-5.6) H 08/17/18 04:09 - Recent Pertinent Medications The patient is currently receiving: * Basal insulin: Lantus 12 units every 12 hours * Correctional Insulin: Novolog Correction per scale ACHS Goal Range: Low 110 mg/dL - High 140 mg/dL Correction Factor: 20 mg/dL/unit * Prandial insulin: Per carb ratio of 1 unit per 8 grams CHO consumed - Outpatient Anti-Diabetic Meds Humalog 50/50 Mix - 135 units in the morning and 125 units in the PM - Assessment & Plan ASSESSMENT: * See progress note from 08/16/18 for more background info, in short: * Pt receiving SQ basal bolus insulin regimen for hyperglycemia secondary to baseline DM (outpatient regimen on hold). Patient received Solu-Medrol 125 mg IV x 1 on 08/16/18. * Patient is currently receiving an average of 51 units of insulin per day + IV insulin insulin * 22 units of basal insulin * 29 units of prandial/correctional insulin * BSGs ranging 85 - 150 mg/dl over the past 24hrs * Changes needed to insulin regimen: * AM Fasting BSG = 153 mg/dl. This is slightly above goal range for patient based on inpatient targets and co-morbidities. The patient was titrated off insulin infusion yesterday evening as expected. This fasting blood sugar is reasonable for insulin infusion discontinuation yesterday. Will continue with a basal rate of 24 units for today. * Post-prandial BSGs are not really able to be evaluated off insulin infusion as of right now. Was utilizing carbohydrate ratio of 6 yesterday to prevent insulin infusion from covering carbohydrates. Started CF 20 and CR of 8 last night. Typically patient requires this. May need tightened since steroids were given two days ago. Will watch. * Total daily dose = ~50 units. PLAN FOR INPATIENT GLYCEMIC CONTROL: * Continuing Lantus 12 units SQ BID * Continuing correction factor of 20 mg/dl/unit * Continuing carb ratio of 1 unit per 8 grams CHO consumed * Continuing goal range of Low 110 mg/dL - High 140 mg/dL RECOMMENDATIONS FOR DISCHARGE: * see note from 08/17/18 * Please note that the plan above was derived based on current level of insulin resistance and hospital stress. These recommendations are appropriate for inpatient admission only. Plan of care upon discharge will need to be reassessed to avoid potential outpatient hypo/hyperglycemia. Thank you.
--- NOTE | 2018-08-18 09:08 | Cardiology Progress Note ---
Date of Service August 18, 2018 Assessment & Plan (1) Acute on chronic systolic (congestive) heart failure: He has diuresed nicely and is currently negative 107 L from a fluid balance standpoint throughout his hospital stay. Labs now suggest azotemia. He was hypotensive overnight. Diuretics discontinued for now. Would resume oral diuretics tomorrow. At discharge, would recommend Bumex 4 mg twice daily instead of Lasix 160 mg daily. He prefers this as it would be less overall pills. Noncompliance has played a role in his medical condition and Re admissions in the past. Low-sodium diet. Close follow-up with heart failure program. Daily weights. (2) Nonischemic cardiomyopathy: Today he inquired on his own accord about receiving an ICD. He has been seen by electrophysiology in the past. Continue metoprolol succinate and Entresto. No changes made to these doses at this time. This can be arranged as an outpatient. He has not demonstrated ventricular tachycardia while hospitalized. (3) Acute respiratory failure: Likely secondary to heart failure as above. Symptoms have resolved with diuresis. (4) Hypertension: Consistent with prior hospitalizations, with his typical outpatient regimen, his blood pressure normalized quite quickly. He was hypotensive overnight but is likely intravascularly hypovolemic currently based on Azotemic labs. Noncompliance likely playing a role in his hypertension as an outpatient. He states that he does take medications as prescribed. (5) Medical non-compliance: Discussed the importance of compliance with medical therapy but also with recommended follow-up. He was advised prior to this hospitalization to come to the office for evaluation given shortness of breath, but he declined. We discussed the importance of following up closely with heart failure program. (6) Sinus bradycardia: He did have sinus bradycardia transiently in the 30s while sleeping 2 days ago. No significant bradycardia currently. Would continue current dose of metoprolol succinate as his heart rate while awake is normal. Continue to monitor. Disposition: From a cardiac standpoint, no further aggressive diuresis is necessary as he appears to be intravascularly hypovolemic based on labs. Can be discharged when okay with primary service. Recommend Bumex [address] daily in place of Lasix on discharge. Close follow-up with heart failure program. No diuretics today. Plan of care discussed with primary hospitalist service, Dr. Knox. Can also follow-up with electrophysiology to discuss ICD again as per patient request. Subjective He denies shortness of breath, chest pain, syncope, near-syncope, lightheadedness, palpitations, or edema. He states that his breathing is back to baseline. He wants to go home today. He is requesting Bumex in place of Lasix as this was discussed previously with Monty Mazariegos, who follows him very closely in Heart failure program. Review of systems: As above. Physical Exam Physical Exam: Gen.: No acute distress. Alert and oriented. HEENT: Anicteric sclera. Neck: Thick neck. Cardiac: Regular. No ectopy. Normal S1-S2. No murmurs, rubs, or gallops. Pulmonary: Decreased breath sounds throughout, but otherwise clear to auscultation bilaterally without wheezes, rales, or rhonchi. Abdomen: Obese. Soft, nontender, nondistended, with normoactive bowel sounds. No bruits noted. Extremities: No edema. No cyanosis. Psychiatric: Affect appears appropriate. Results & Data Vital Signs (Past 12 Hours) Vital Signs Temp Pulse Resp BP Pulse Ox 08/18/18 08:00 65 101/73 98 08/18/18 07:30 78 113/78 93 08/18/18 07:00 66 109/82 94 08/18/18 06:31 46 L 105/76 89 L 08/18/18 06:00 64 92/70 L 99 08/18/18 05:31 74 92/55 L 98 08/18/18 05:01 64 95/59 L 94 08/18/18 05:00 58 L 95 08/18/18 04:30 96/54 L 96 08/18/18 04:00 36.5 C 72 82/58 L 96 08/18/18 03:51 75 101/64 95 08/18/18 03:30 69 73/57 L 96 08/18/18 03:00 61 15 86/59 L 97 08/18/18 02:30 74 97/61 L 98 08/18/18 02:00 66 99/62 L 91 08/18/18 01:31 71 95/58 L 91 08/18/18 01:00 80 72/51 L 94 08/18/18 00:00 36.6 C 81 88/56 L 95 08/17/18 23:12 74 16 98 08/17/18 23:01 86 14 104/56 L 94 08/17/18 23:00 81 14 96 08/17/18 22:00 88 16 121/78 95 08/17/18 21:52 80 21 106/76 94 08/17/18 21:01 89 19 106/66 92 08/17/18 21:00 78 22 95 Intake & Output 08/16/18 08/17/18 08/18/18 08/19/18 06:59 06:59 06:59 06:59 Intake Total 29.8 / 29.8 1698.843 / 1698.843 950.597 / 950.597 Output Total 2245 / 2245 7625 / 7625 3500 / 3500 Balance -2215.2 / -2215.2 -5926.157 / -5926.157 -2549.403 / -2549.403 Weight 162.4 kg 158.6 kg 157.1 kg Laboratory Results Laboratory Results - last 24 hr 08/17/18 08/17/18 08/17/18 11:47 12:55 13:50 Sodium Potassium Chloride Carbon Dioxide Anion Gap BUN Creatinine Est Cr Clr Drug Dosing Est GFR ( Amer) Est GFR (Non-Af Amer) BUN/Creatinine Ratio Glucose POC Glucose 85 123 H 150 H Calcium 08/17/18 08/17/18 08/17/18 15:00 16:23 17:05 Sodium 138 Potassium 4.8 D Chloride 102 Carbon Dioxide 26 Anion Gap 10.0 BUN 27 H Creatinine 1.17 Est Cr Clr Drug Dosing 121.2 Est GFR ( Amer) 89.2 Est GFR (Non-Af Amer) 77.0 BUN/Creatinine Ratio 22.6 H Glucose 145 H POC Glucose 130 H 115 H Calcium 8.7 08/17/18 08/17/18 08/18/18 19:16 21:25 00:11 Sodium Potassium Chloride Carbon Dioxide Anion Gap BUN Creatinine Est Cr Clr Drug Dosing Est GFR ( Amer) Est GFR (Non-Af Amer) BUN/Creatinine Ratio Glucose POC Glucose 150 H 105 H 125 H Calcium 08/18/18 08/18/18 08/18/18 03:47 03:51 07:29 Sodium 137 Potassium 3.4 L D Chloride 100 Carbon Dioxide 30 Anion Gap 7.0 BUN 36 H Creatinine 1.41 H Est Cr Clr Drug Dosing 100.5 Est GFR ( Amer) 71.2 Est GFR (Non-Af Amer) 61.4 BUN/Creatinine Ratio 25.4 H Glucose 156 H POC Glucose 149 H 153 H Calcium 8.3 L Diagnostic Findings Telemetry personally reviewed: Sinus rhythm. No arrhythmia. Medications Administered Current Inpatient Medications Acetaminophen (Ofirmev) 1,000 mg IV Q6H PRN PRN Reason: Headache Stop: 09/15/18 12:06 Albuterol (Combivent Respimat) 1 puffs INH Q6H [facility] Stop: 09/15/18 05:59 Last Admin: 08/18/18 06:39 Dose: 1 puffs Documented by: Aspirin (Ecotrin Ectab) 81 mg PO QAM [facility] Stop: 09/15/18 08:59 Last Admin: 08/18/18 08:10 Dose: 81 mg Documented by: Budesonide/Formoterol Fumarate (Symbicort 160mcg/4.5mcg) 2 puffs INH BID [facility] Stop: 09/15/18 08:59 Last Admin: 08/18/18 08:11 Dose: 2 puffs Documented by: Clonidine HCl (Catapres) 0.1 mg PO HS [facility] Stop: 09/15/18 20:59 Last Admin: 08/18/18 02:20 Dose: Not Given Documented by: Dextrose (Dextrose 50%) 25 - 50 ml IV UD PRN; Protocol PRN Reason: Hypoglycemia Protocol Stop: 09/15/18 05:33 Glucagon (Glucagen) 1 mg SQ UD PRN; Protocol PRN Reason: Hypoglycemia Protocol Stop: 09/15/18 05:33 Glucose (Glucose 40%) 15 - 30 gm PO UD PRN; Protocol PRN Reason: Hypoglycemia Protocol Stop: 09/15/18 05:33 Glucose (Dex4 Glucose) 4 - 8 tabs PO UD PRN; Protocol PRN Reason: Hypoglycemia Protocol Stop: 09/15/18 05:33 Heparin Sodium (Porcine) (Heparin Sodium (Porcine)) 5,000 units SQ Q8 [facility] Stop: 09/15/18 15:29 Last Admin: 08/18/18 06:39 Dose: 5,000 units Documented by: Hydralazine HCl (Apresoline) 50 mg PO TID [facility] Stop: 09/15/18 08:59 Last Admin: 08/18/18 02:20 Dose: Not Given Documented by: Nitroglycerin/Dextrose (Nitroglycerin/D5w 100 Mcg/Ml) 250 mls @ 0 mls/hr IV .Q0M [facility]; Protocol Stop: 09/15/18 03:44 Last Titration: 08/16/18 14:50 Dose: 0 mcg/min, 0 mls/hr Documented by: Insulin Human Regular 250 (units/ Sodium Chloride) 250 mls @ 2 mls/hr IV .Q24H [facility]; Protocol Stop: 09/15/18 09:59 Last Admin: 08/17/18 22:16 Dose: Not Given Documented by: Insulin Aspart (Novolog Flexpen) 0 units SC ACHS [facility] Stop: 09/16/18 21:29 Last Admin: 08/17/18 22:16 Dose: 2 units Documented by: Insulin Glargine (Lantus Solostar Pen) 12 units SC BID [facility] Stop: 09/16/18 20:59 Last Admin: 08/18/18 08:11 Dose: 12 units Documented by: Ioversol (Optiray 320 125ml) 108 ml IV ONCE PRN PRN Reason: Interaction Checking Stop: 08/20/18 00:19 Last Admin: 08/16/18 00:20 Dose: 108 ml Documented by: Labetalol HCl (Normodyne) 20 mg IV Q6H PRN PRN Reason: SBP >180 Stop: 09/15/18 19:01 Metolazone (Zaroxolyn) 2.5 mg PO MoWeFr@0800 [facility] Stop: 09/15/18 07:59 Last Admin: 08/16/18 09:25 Dose: 2.5 mg Documented by: Metoprolol Succinate (Toprol Xl) 100 mg PO BID [facility] Stop: 09/15/18 08:59 Last Admin: 08/18/18 08:10 Dose: 100 mg Documented by: Miscellaneous (Carbohydrates For Hypoglycemia) 15 - 30 gm PO UD PRN PRN Reason: Hypoglycemia Treatment Stop: 09/15/18 05:33 Miscellaneous Information (Consult Glycemic Management Pharmacy) 1 ea N/A UD PRN PRN Reason: Consult Stop: 09/15/18 08:41 Ondansetron HCl (Zofran) 4 mg IV Q6H PRN PRN Reason: Nausea Stop: 09/15/18 05:33 Pantoprazole Sodium (Protonix) 40 mg PO DAILY [facility] Stop: 09/15/18 08:59 Last Admin: 08/18/18 08:09 Dose: 40 mg Documented by: Potassium Chloride (Klor-Con M20) 20 meq PO QAM [facility] Stop: 09/15/18 08:59 Last Admin: 08/18/18 08:09 Dose: 20 meq Documented by: Sacubitril/Valsartan (Entresto 49/51mg) 2 tab PO BID [facility] Stop: 09/15/18 08:59 Last Admin: 08/18/18 08:10 Dose: 2 tab Documented by: Vitamin D (Vitamin D3) 2,000 units PO BID [facility] Stop: 09/15/18 08:59 Last Admin: 08/18/18 08:09 Dose: 2,000 units Documented by:
--- NOTE | 2018-08-18 17:55 | Family Medicine Progress Note ---
Date of Service August 18, 2018 Assessment & Plan (1) Sinus bradycardia: 42 year old male with history of CHF, HTN, DMII, Obesity, intellectual disability, and poor medication compliance who presented to ED with 48 hours of shortness of breath. Acute Hypoxemic Respiratory Failure Secondary to CHF exacerbation CTA: No PE, Small b/l pleural effusion, Bilateral opacities appearing to be pulmonary edema Required bipap On admission now breathing comfortably on room air Diuresed 11 L since admission breathing more comfortably Acute on chronic systolic CHF Cardiomyopathy with EF 25-30% left ventricle global hypokinesis Was admitted in June of this year with similar presentation BNP 3569 on admission Mild Troponins elevation at 0.037 likely from demand due to CHF Will not trend Patient likely overdiuresed as creatinine has bumped from 1.17 to 1.41 Will hold further diuretics today, recheck bmp in morning Cardiology recommendsd making switch to bumex 4 mg BID from current lasix Educated patient and will start bumex tomorrow morning and discharge Patient would benefit from spironolactone as well, but after discussion with cards will likely add spironolactone as an outpatient to only change one med Continue entresto 97 103 Hemoptysis likely secondary to CHF HTN Home regimen hydralazine TID, clonidine .1 mg daily, metoprolol 100mg BID and lasix 120 mg BID and entresto 97 103\ With patient on his home medications he has been hypotensive and bradycardic Concerned that patient is not taking his medications as prescribed and do not want him to go low at home Holding hydralazine and this afternoon his pressures are back up to normal range Will continue to monitor vitals and come up with discharge plan DM2 Last A1C 7.4 On humalog at home Patient transitioned to subq insulin from drip Continuing humalog with sliding scale F/E/N: Carb consistent heart healthy fluid restriction DVT PPx: Heparin Dispo: PICU Telemetry (2) Acute on chronic systolic (congestive) heart failure: (3) Medical non-compliance: (4) Acute respiratory failure: (5) Nonischemic cardiomyopathy: (6) Pulmonary edema: (7) Shortness of breath: (8) Diabetes mellitus, type II: (9) Obstructive sleep apnea: (10) Hypertension: Supervising Physician Co-Signing Physician Notes Resident Physician Supervision Note: I independently interviewed and examined the patient and verified the caraballo history and physical, reviewed labs and image studies, discussed the case with the resident Dr. Knox and agree with the findings and care plan. Subjective Alok rdz resting comfortable on room air today. Despite his hypotension and bradycardia he reports that he has been asymptomatic with no dizziness lightheadedness syncope or presyncope attempted to educate patient on congestive heart failure and on teach back it appeared that he had a very superficial understanding. Patient wanted to go home as soon as possible Review of Systems Review of Systems: All systems reviewed & are unremarkable except as noted in HPI & below Physical Exam Physical Exam: Constitutional orbitally obese calm cooperative in no acute distress Eyes pupils equal round reactive to light extraocular movements intact anicteric sclerae Respiratory: Respiratory effort normal no increased work of breathing symmetrical chest expansion lungs sounds vesicular Cardiovascular: Heart sounds dual no murmur rub skips or gallops mild pitting edema of lower extremity present, regular rate and rhythm pulses intact all distal extremities Gastrointestinal: Abdomen soft nontender normal to inspection Neurological: Patient awake alert and oriented x3 no focal abnormalities detected Results & Data Vital Signs (Past 12 Hours) Vital Signs Temp Pulse Resp BP Pulse Ox 08/18/18 08:00 65 101/73 98 08/18/18 07:30 78 113/78 93 08/18/18 07:00 66 109/82 94 08/18/18 06:31 46 L 105/76 89 L 08/18/18 06:00 64 92/70 L 99 08/18/18 05:31 74 92/55 L 98 08/18/18 05:01 64 95/59 L 94 08/18/18 05:00 58 L 95 08/18/18 04:30 96/54 L 96 08/18/18 04:00 36.5 C 72 82/58 L 96 08/18/18 03:51 75 101/64 95 08/18/18 03:30 69 73/57 L 96 08/18/18 03:00 61 15 86/59 L 97 08/18/18 02:30 74 97/61 L 98 08/18/18 02:00 66 99/62 L 91 08/18/18 01:31 71 95/58 L 91 08/18/18 01:00 80 72/51 L 94 08/18/18 00:00 36.6 C 81 88/56 L 95 08/17/18 23:12 74 16 98 08/17/18 23:01 86 14 104/56 L 94 08/17/18 23:00 81 14 96 08/17/18 22:00 88 16 121/78 95 08/17/18 21:52 80 21 106/76 94 PG Care Time/CCT Total # of Minutes Spent Total Time Spent with Patient: Total time spent is greater than 50% in coordination of care (as documented) at patient's floor/unit and/or counseling patient: Resident Activity Tracking Resident Involvement: Resident Care Provided Care Provided: Adult Hospital Medicine
[2018-08-19] MEDS: IPRATROPIUM BROMIDE/ALBUTEROL respimat INH INH SCH ×3 (00:24→12:55)
[2018-08-19] MEDS: HEPARIN SOD 5,000 UNIT/0.5 ML VIAL SQ SCH (06:06)
[2018-08-19 08:29] LABS: BUN Creatinine Ratio 27.3 (10-20); Est GFR (African American) 94.1; Est GFR (Non-African American) 81.2; Potassium 3.9 mmol/L (3.5-5.1)
[2018-08-19] MEDS ORDERED: BUMETANIDE 1 MG TAB PO SCH (09:00)
[2018-08-19] MEDS ORDERED: INSULIN GLARGINE SOLOSTAR 100 UNITS/ML 3 ML PEN SC SCH (09:00)
[2018-08-19] MEDS: BUDESONIDE/FORMOTEROL FUMARATE 160/4.5 60 PUFFS/INHALER INH SCH (09:29)
[2018-08-19] MEDS: METOPROLOL SUCC 50MG EXT REL TAB PO SCH (09:29)
[2018-08-19] MEDS: CHOLECALCIFEROL 1,000 UNITS TAB PO SCH (09:29)
[2018-08-19] MEDS: PANTOprazole 40 MG TAB PO SCH (09:30)
[2018-08-19] MEDS: SACUBITRIL-VALSARTAN 49/51 MG TAB PO SCH (09:30)
[2018-08-19] MEDS: ASPIRIN 81 MG ECTAB PO SCH (09:30)
[2018-08-19] MEDS: POTASSIUM CHLORIDE 20 MEQ TABCR PO SCH (09:30)
[2018-08-19] MEDS: INSULIN ASPART 100 UNITS/ML 3 ML PEN SC SCH ×2 (09:32→12:56)
[2018-08-19 12:43] VITALS: BP 102/56; PULSE 68; TEMP 98.6; O2SAT 98
--- NOTE | 2018-08-19 17:28 | Discharge Summary ---
Date of Service August 19, 2018 Admission HPI Per Admitting Provider 42-year-old male presents the emergency department complaining of shortness of breath over the past 48 hours. He says that he has had some difficulty going up and down stairs without assistance. Says that things "hurt around the heart" because of "gagging". He denies any known fevers but says that he gets hot flashes at times. He also mentions that he has had return of hemoptysis for about 3 days. He says that it looks like sputum and is smaller than the size of a "little cup [making a gesture with his hand about the size of a small shot glass]. Denies vomiting or diarrhea. He says that he has been taking his medicines regularly as prescribed. However, he says he just restarted using his home BiPAP machine this past Sunday after multiple weeks of being off it. No other acute patient concerns. - Past medical history includes hypertension, nonischemic cardiomyopathy, CHF, hemoptysis, diabetes, GERD, depression, obesity, depression, COPD, obesity hypoventilation syndrome, obstructive sleep apnea. - Past surgical history includes cholecystectomy. - Social history includes being a former smoker, some alcohol use, and lives at home. Principal Diagnosis CHF exacerbation Discharge Exam Constitutional WD/WN, vitals as above Eyes EOM intact bilaterally; no conjunctival abnormality ENMT external ear and nose normal, oropharynx normal Neck trachea midline, no thyromegaly normal visual inspection Respiratory normal respiratory effort, lungs clear to auscultation no respiratory distress Cardiovascular RRR, no murmur, no edema Gastrointestinal (Abdomen) Inspection/Auscultation: abdomen normal to inspection; abdomen not distended Musculoskeletal no cyanosis or clubbing, extremities motor strength 5/5 Skin no rashes, warm and dry Neurologic moves all extremities and awake Psychiatric Orientation: alert, oriented to person and cooperative Discharge Data Allergies Allergy/AdvReac Type Severity Reaction Status Date / Time ceftriaxone Allergy Severe SHORTNESS Verified 08/15/18 23:29 OF BREATH lidocaine Allergy Severe SHORTNESS Verified 08/15/18 23:29 OF BREATH, diaphoretic, hives procaine Allergy Severe SHORTNESS Verified 08/15/18 23:29 OF BREATH, diaphoretic, hives amoxicillin Allergy Intermediate HIVES/FACIAL Verified 08/15/18 23:29 SWELLING lisinopril Allergy Intermediate HIVES Verified 08/15/18 23:29 albuterol Allergy Mild proair Verified 08/15/18 23:29 "trouble taking breaths" clavulanic acid Allergy Unknown . Verified 08/15/18 23:29 acetaminophen AdvReac Mild NAUSEA Verified 08/15/18 23:29 Consultations 08/16/18 01:35 ED Decision to Admit Stat 08/16/18 04:37 Consult Zoning Administrator Routine 08/16/18 04:39 Consult Case Management - Discharge Planning Routine 08/16/18 05:34 Consult Cardiology Routine Consult Case Management - Discharge Planning Routine Ordered Studies 08/15/18 23:07 CT angio chest PE protocol Urgent Hospital Course (1) Sinus bradycardia: (2) Acute on chronic systolic (congestive) heart failure: (3) Medical non-compliance: Cardiomyopathy with EF 25-30% left ventricle global hypokinesis - IV diuresis - Continue home heart failure medications - Case discussed with Corie Mazariegos (4) Acute respiratory failure: HTN Resistant hypertension Home regimen hydralazine TID, clonidine .1 mg daily, metoprolol 100mg BID and lasix 120 mg BID and entresto 97 103 DM2 Last A1C 7.4 On humalog at home Continuing humalog with sliding scale F/E/N: Carb consistent heart healthy DVT PPx: Heparin Dispo: ICU (5) Nonischemic cardiomyopathy: (6) Pulmonary edema: (7) Shortness of breath: (8) Diabetes mellitus, type II: (9) Obstructive sleep apnea: (10) Hypertension: Total Time Total Time Spent Total Time Spent (In Minutes): 35 Total Time Includes: Examination of the Patient and Discharge Planning Discharge Plan Discharge Items Patient Disposition: Home - Self-Care Reason For Visit: SOB, HEART FAILURE,PULMONARY EDEMA Discharge Diagnosis: Heart failure Discharge Goals: Decrease discomfort and Diagnostic testing Activity: Resume your previous activity Non-emergency contact: Primary Care Provider and Skating Rink Ice Maker Call non-emergency contact if: you have any medication questions, your symptoms worsen and your pain is not controlled Follow-up/Referrals: Ilir Qureshi MD [Primary Care Provider] - 08/27/18 9:30 am (follow up appointment at your primary care physicina office with the physician payroll administrative assistant, Sheridan) Corie Mazariegos PA-C [Physician Sales Center Manager] - 08/21/18 9:30 am (follow up appointment for heart failure clinic) Diet: Heart Healthy and Low Sodium (2gm) Fluids: 1500ml (6 cups) Addtl Provider Instructions: Please take the Bumex two times per day instead of your Lasix. It will hopefully be more effective for your heart failure. Please do not take the metolazone until you are seen by Ms. Mazariegos in the heart failure clinic. Also, your blood pressure has been much better on the higher dose of Entresto. We adjusted your medications to help keep your blood pressure at goal. 1) Take 2 tablets of Entresto 2 times per day instead of 1 tablet 2 times per day. 2) Stop the clonidine in the evenings. 3) Stop the hydralazine that you were taking 3 times per day. (Ms. Mazariegos or Dr. Qureshi may restart this at a lower dose if needed.) Prescriptions: New bumetanide 2 mg tablet 4 mg PO BID Qty: 120 RF: 0 Entresto 97-103 mg tablet 1 tab PO BID Qty: 60 RF: 0 Continued lancets [OneTouch Delica Lancets] 33 gauge misc .ROUTE .MEDSUPPLY Qty: 100 RF: 0 OneTouch Verio strip .ROUTE .MEDSUPPLY Qty: 10 RF: 0 aspirin [Aspirin Low Dose] 81 mg Tablet,Delayed Release (Dr/Ec) 81 mg PO QAM RF: 0 potassium chloride [Klor-Con M20] 20 mEq Tablet,Er Particles/Crystals 20 meq PO QAM RF: 0 Humalog Mix 50-50 KwikPen 100 unit/mL (50-50) Insulin Pen 125 units SUBCUT QPM RF: 0 Humalog Mix 50-50 KwikPen 100 unit/mL (50-50) Insulin Pen 135 units SUBCUT QAM RF: 0 esomeprazole magnesium [Nexium] 20 mg Capsule,Delayed Release(Dr/Ec) 20 mg PO QAM RF: 0 cholecalciferol (vitamin D3) [Vitamin D3] 1,000 unit Capsule 2,000 units PO BID RF: 0 Symbicort 160-4.5 mcg/actuation Hfa Aerosol Inhaler 2 puff INHALATION BID RF: 0 Combivent Respimat 20-100 mcg/actuation Mist 1 puff INHALATION Q6H RF: 0 Changed metoprolol succinate 100 mg tablet extended release 24 hr 200 mg PO DAILY Qty: 0 RF: 0 Discontinued furosemide 40 mg tablet 120 mg PO BID Qty: 0 RF: 0 metolazone 2.5 mg tablet 2.5 mg PO 3XWK RF: 0 sacubitril-valsartan 97-103 mg Tablet 1 tab PO BID RF: 0 clonidine HCl 0.1 mg Tablet 0.1 mg PO HS RF: 0 hydralazine 50 mg tablet 50 mg PO TID RF: 0 Stand-Alone Forms: [facility]/Other Patient Handouts: Heart Failure Discharge Orders: Discharge Order (Routine); Ordered 08/19/18 Ordered By: Mynor Hunt Admission Data Admit Date/Time: 08/16/18 02:52 Attending Provider: Mynor Hunt Admit Provider: Ciarra Burr Primary Care Provider: Ilir Qureshi Other Providers: Ilir Mercado ; Abraham Rosen ; Mynor Hunt Service: Telemetry Other Interventions: Discharge Summary Assessment (RN) Last Done: 08/19/18 12:37 DC Date/Time DO NOT enter until pt leaves facility: 08/19/18 14:27
--- NOTE | 2018-08-19 17:32 | Cardiology Progress Note ---
Date of Service August 19, 2018 Assessment & Plan (1) Acute on chronic systolic (congestive) heart failure: He has recurrent congestive heart failure and although we have attempted to keep him out of the hospital it has been difficult. He is doing much better now with diuresis, he has lost a lot of weight in the lot of edema. At this point I agree with sending him home. I think it is reasonable to try Bumex rather than continue with Lasix. (2) Nonischemic cardiomyopathy: He has continued significant left ventricular dysfunction, his left ventricular ejection fraction is at a point where we can consider ICD implantation. That had been evaluated before and decision had been made not to do it. We may want to re-evaluate him for ICD implantation but that can be done as an outpatient. Subjective He is feeling much better today, he notes that his legs are dramatically improved and he is not short of breath. He is now anxious to go home. He now would like to consider an ICD. Physical Exam Physical Exam: Constitutional: Alert, cooperative and in no distress. Pulmonary: Clear to auscultation bilaterally. Cardiac: Regular rhythm with no murmur, gallop or rub. Abdomen: Soft, nontender with normal bowel sounds. Extremities: No edema. Skin: No rash, ecchymoses or petechiae. Results & Data Vital Signs (Past 12 Hours) Vital Signs Temp Pulse Pulse Resp BP BP Pulse Ox 08/19/18 12:37 37 C 68 18 102/56 L 98 08/19/18 12:22 36.8 C 62 18 98/71 L 96 08/19/18 08:04 37 C 70 18 91/60 L 94 08/19/18 08:00 70 Diagnostic Findings Telemetry: Sinus rhythm, controlled heart rate
== END 2018-08-19 14:27 | disposition home or self-care (01) | DRG 291 ==
LOC: ED 22:37 → SUATTDRO 08-16 02:52 → 1E 08-16 02:52 → 2E 08-18 10:51

== ENCOUNTER 2018-11-25 13:07 | Inpatient (IN) ==
[2018-11-25] MEDS ORDERED: FUROSEMIDE 40 MG/4 ML VIAL IV STA ×2 (13:36→21:37)
[2018-11-25] MEDS ORDERED: NITROGLYCERIN 2% OINTMENT 30GM TUBE EXT ONE (13:36)
[2018-11-25] MEDS ORDERED: ALBUT/IPRATROP 3MG/0.5MG NEB 3 ML VIAL NEB STA (13:38)
--- NOTE | 2018-11-25 14:00 | XRay Report ---
XR chest 1V portable CLINICAL HISTORY: Dyspnea COMPARISON STUDY: 10/25/2018 FINDINGS: The heart remains enlarged. There is continued radiographic evidence for congestive failure /fluid overload. There is a more focal airspace opacity at the right lung base, likely representing f ocal edema although a superimposed pneumonitis could appear similar[ IMPRESSION: 1. Continued radiographic evidence of congestive failure/fluid overload 2. More focal airspace opacity at the right lung base, likely representing focal edema Electronically signed by: Garrett Muniz M.D. 11/25/2018 1:59 PM
--- NOTE | 2018-11-25 14:13 | Emergency Department Note ---
Entered by Parag Conklin acting as a scribe for Rodney Hilton DO History of Present Illness General Chief complaint: Chest Pain Stated complaint: EXTREME SOB, CHEST PAINS, COUGHING BLOOD Source: patient History of Present Illness Onset (ago): day(s) (yesterday morning) Location: abdomen Severity: similar to prior episodes Pain Consistency: + other (multiple episodes) Maximum Pain Intensity: 10 Quality: + other (hematemesis) Associated symptoms: + shortness of breath and + other (+frequent urination; +right leg swelling ); no fever/chills The patient is a 42 year old male, with past medical history of morbid obesity, CHF, pulmonary edema, and diabetes, who presents to the Emergency Room with complaints of multiple episodes of hematemesis beginning yesterday morning. The patient also notes he has been short of breath. The patient also reports of frequent urination. The patient states the frequent urination has been keeping him up at night, and he notes he urinated 15-20 times throughout the night. The patient notes his symptoms today feel like his prior CHF symptoms. The patient notes his right leg is more swollen currently than typically. The patient denies having history of clots in lungs or legs. The patient states he recently has had CT scans done at [facility]. The patient denies a fever, and he also states he took all his medications today. The patient reports he has been using his nebulizer treatments, but he states it has not helped. The patient denies being on oxygen at home. Home Medications Home Medications Medication Instructions Recorded Confirmed Type sacubitril-valsartan [Entresto] 1 tab PO BID #60 tab 08/19/18 11/25/18 Rx insulin lispro protamine-lispro 40 units SQ BID ml 08/28/18 11/25/18 History 100 unit/mL (50-50) subcutaneous pen esomeprazole magnesium 20 mg 20 mg PO BID cap 09/05/18 11/25/18 History capsule,delayed release ipratropium 20 mcg-albuterol 100 1 puff INHALATION Q6H PRN 09/05/18 11/25/18 History mcg/actuation mist for inhalation aspirin 81 mg tablet,delayed 81 mg PO QAM 09/17/18 11/25/18 History release cholecalciferol (vitamin D3) 1,000 2,000 units PO BID cap 09/17/18 11/25/18 History unit capsule cetirizine [Zyrtec] 10 mg PO QAM 10/25/18 11/25/18 History metoprolol succinate ER 200 mg 200 mg PO QAM tab 11/11/18 11/25/18 History tablet,extended release 24 hr dulaglutide 1.5 mg/0.5 mL 1.5 mg SQ WEEKLY ml 11/12/18 11/25/18 History subcutaneous pen injector hydralazine 100 mg tablet 100 mg PO BID #180 tab 11/14/18 11/25/18 Rx metolazone 5 mg tablet 5 mg PO BID PRN #12 tab 11/14/18 11/25/18 History torsemide 20 mg tablet 60 mg PO BID #60 tab 11/14/18 11/25/18 Rx Allergies Allergy/AdvReac Type Severity Reaction Status Date / Time ceftriaxone Allergy Severe SHORTNESS Verified 11/25/18 14:54 OF BREATH lidocaine Allergy Severe SHORTNESS Verified 11/25/18 14:54 OF BREATH, diaphoretic, hives procaine Allergy Severe SHORTNESS Verified 11/25/18 14:54 OF BREATH, diaphoretic, hives amoxicillin Allergy Intermediate HIVES/FACIAL Verified 11/25/18 14:54 SWELLING lisinopril Allergy Intermediate HIVES Verified 11/25/18 14:54 albuterol Allergy Mild proair Verified 11/25/18 14:54 "trouble taking breaths" clavulanic acid Allergy Unknown . Verified 11/25/18 14:54 acetaminophen AdvReac Mild NAUSEA Verified 11/25/18 14:54 Past Med/Surg History Medical History Morbid obesity (Chronic) BMI> 50 Sinus bradycardia Acute on chronic systolic (congestive) heart failure (Chronic) Nonischemic cardiomyopathy Peripheral neuropathy (Chronic) 2/2 DM type II. Located on the feet bilaterally. Not requiring medication. 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 Difficult to manage. Integrated into heart failure clinic. Frequent admissions for heart failure exacerbations. Echo (05/31) EF=25-30% with mod to severe global hypokinesis, basal kelsi-septal akinetic wall, LVH, RVSP elevated at 30-40mmHg, and mod dilated ascending aorta. Managed medically with ASA + BB + ARB/Neprilysin inhibitor (Entresto) + high dose furosemide (160mg BID) + metolazone (3x weekly). Considering ICD given EF. 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) Lung nodule (Acute) Dyslipidemia (Acute) Depression with anxiety (Acute) Cluster headache (Acute) Carpal tunnel syndrome (Acute) Bilateral knee pain (Acute) Hemoptysis GERD (gastroesophageal reflux disease) COPD (chronic obstructive pulmonary disease) (Chronic) Acquired claw toe of left foot (Acute) Acquired claw toe of right foot (Acute) Diabetes mellitus with diabetic polyneuropathy (Acute) Back pain (Resolved) Learning disability (Resolved) Cognitive impairment DM II (diabetes mellitus, type II), controlled Depression Fatty liver GERD (gastroesophageal reflux disease) HTN (hypertension) Medical non-compliance Morbid obesity with BMI of 50.0-59.9, adult Nonischemic cardiomyopathy EF 30-35% MARIELENA (obstructive sleep apnea) Does not comply with CPAP Surgical History History of cholecystectomy S/P tonsillectomy Family History Father Heart disease Other Depression Lung disease No pertinent family history Social History Preferred Language: Chinese Communication Ability: Effective Visual Impairment: No Limitations Dolphin Trainer Required: No Beliefs That Will Affect Care: None marital status: Current Living Situation: Spouse current occupational status: unemployed Feels Safe at Home: Yes Smoking Status: Never smoker Tobacco Type: cigarettes ; Cigarettes Per Day: reports he quit smoking at 14 years old ; Second Hand Exposure: No ; Hx Alcohol Use: No Hx Substance Use: No Review of Systems See HPI for pertinent positives & negatives. and A total of 10 systems reviewed and were otherwise negative Physical Exam Vital Signs Vital Signs - 24 hr 11/25/18 13:16 11/25/18 13:56 11/25/18 13:58 Temperature 36.4 C L Temperature Source Oral Sepsis Recent Fever Within 48 Hours No Sepsis New/Unexplained Change in Mental Status No Sepsis Action Taken by Nursing No Action Required Pulse Rate 133 H 122 H Pulse Rate [Apical] 118 H Pulse Rate from SpO2 Sensor 122 H Pulse Rhythm Regular Pulse Strength Normal Respiratory Rate 30 H 24 28 H Respiratory Effort / Characteristics Spontaneous Accessory Muscle Use Labored Spontaneous Short of Breath Respiratory Depth Normal Respiratory Pattern Regular Blood Pressure 205/115 H 198/149 H Blood Pressure Mean 145 165 Blood Pressure Position Sitting Pulse Oximetry 89 L 99 90 Oxygen Delivery Method Room Air Room Air 11/25/18 14:01 11/25/18 14:02 11/25/18 14:30 Temperature Temperature Source Sepsis Recent Fever Within 48 Hours Sepsis New/Unexplained Change in Mental Status Sepsis Action Taken by Nursing Pulse Rate 123 H 121 H 120 H Pulse Rate [Apical] Pulse Rate from SpO2 Sensor 124 H 121 H 119 H Pulse Rhythm Pulse Strength Respiratory Rate 32 H 31 H 25 H Respiratory Effort / Characteristics Respiratory Depth Respiratory Pattern Blood Pressure 160/134 H Blood Pressure Mean 142 Blood Pressure Position Pulse Oximetry 98 99 91 Oxygen Delivery Method 11/25/18 14:32 11/25/18 15:00 11/25/18 15:02 Temperature Temperature Source Sepsis Recent Fever Within 48 Hours Sepsis New/Unexplained Change in Mental Status Sepsis Action Taken by Nursing Pulse Rate 121 H 110 H 110 H Pulse Rate [Apical] Pulse Rate from SpO2 Sensor 121 H 111 H 108 H Pulse Rhythm Pulse Strength Respiratory Rate 27 H 24 25 H Respiratory Effort / Characteristics Respiratory Depth Respiratory Pattern Blood Pressure 166/141 H 181/104 H Blood Pressure Mean 149 129 Blood Pressure Position Pulse Oximetry 89 L 90 90 Oxygen Delivery Method 11/25/18 15:30 11/25/18 15:32 11/25/18 15:33 Temperature Temperature Source Sepsis Recent Fever Within 48 Hours Sepsis New/Unexplained Change in Mental Status Sepsis Action Taken by Nursing Pulse Rate 114 H 128 H 121 H Pulse Rate [Apical] Pulse Rate from SpO2 Sensor 116 H 129 H 123 H Pulse Rhythm Pulse Strength Respiratory Rate 18 29 H 37 H Respiratory Effort / Characteristics Respiratory Depth Respiratory Pattern Blood Pressure 189/142 H Blood Pressure Mean 157 Blood Pressure Position Pulse Oximetry 93 93 91 Oxygen Delivery Method 11/25/18 16:00 11/25/18 16:04 11/25/18 16:30 Temperature Temperature Source Sepsis Recent Fever Within 48 Hours Sepsis New/Unexplained Change in Mental Status Sepsis Action Taken by Nursing Pulse Rate 119 H 119 H 115 H Pulse Rate [Apical] Pulse Rate from SpO2 Sensor 125 H 121 H 115 H Pulse Rhythm Pulse Strength Respiratory Rate 32 H 31 H 24 Respiratory Effort / Characteristics Respiratory Depth Respiratory Pattern Blood Pressure 169/133 H Blood Pressure Mean 145 Blood Pressure Position Pulse Oximetry 94 92 95 Oxygen Delivery Method 11/25/18 16:32 11/25/18 17:00 Temperature Temperature Source Sepsis Recent Fever Within 48 Hours Sepsis New/Unexplained Change in Mental Status Sepsis Action Taken by Nursing Pulse Rate 113 H 127 H Pulse Rate [Apical] Pulse Rate from SpO2 Sensor 113 H 132 H Pulse Rhythm Pulse Strength Respiratory Rate 20 32 H Respiratory Effort / Characteristics Respiratory Depth Respiratory Pattern Blood Pressure 151/104 H Blood Pressure Mean 119 Blood Pressure Position Pulse Oximetry 90 88 L Oxygen Delivery Method GENERAL: The patient is awake and alert. He appears to be uncomfortable and having significant difficulty breathing. EYES: The conjunctivae are clear. The pupils are round and reactive. EARS, NOSE, MOUTH AND THROAT: The nose is without any evidence of any deformity. Mucous membranes are moist tongue is midline NECK: The neck is nontender and supple. RESPIRATORY: Diminished breath sounds are noted throughout. There is significant conversational dyspnea. CARDIOVASCULAR: Tachycardic rate with regular rhythm was noted. No definite murmur was noted to auscultation. GASTROINTESTINAL: The abdomen is soft. Bowel sounds are present in all quadrants. Abdomen is nontender MUSCULOSKELETAL/EXTREMITIES: There is no evidence of gross deformity full range of motion is noted in the hips and shoulders SKIN: There is no obvious evidence of any rash. Pedal edema was noted bilaterally. NEUROLOGIC: Patient is awake alert and oriented x3. Course 1335: Past medical records reviewed. The patient was evaluated in room A9A. A complete history and physical exam was performed. 1636: I reviewed the patient's case with Dr. Knutson-Patrick [facility]. Dr. Ge lopez will evaluate the patient for further management. Consultations Consultation #1: I [facility] the [facility]. Dr. Knutson will evaluate the patient for further management. Time: 16:36 Administered Medications Aspirin (Ecotrin Ectab) 81 mg PO QAM SUKHWINDER Stop: 12/26/18 08:59 Last Admin: 11/26/18 09:00 Dose: 81 mg Documented by: [id number] Hydralazine HCl (Apresoline) 100 mg PO BID SUKHWINDER Stop: 12/25/18 20:59 Last Admin: 11/26/18 08:59 Dose: 100 mg Documented by: [id number] Admin: 11/25/18 20:33 Dose: 100 mg Documented by: [id number] Insulin Aspart (Novolog Flexpen) 0 units SC ACHS SUKHWINDER; Protocol Stop: 12/25/18 20:59 Last Admin: 11/26/18 09:02 Dose: Not Given Documented by: [id number] Cosigned by: [id number] Admin: 11/25/18 21:06 Dose: 1 units Documented by: [id number] Cosigned by: [id number] Insulin Glargine (Lantus Solostar Pen) 0 units SC BID SUKHWINDER; Protocol Stop: 12/25/18 20:59 Last Admin: 11/26/18 09:01 Dose: 12 units Documented by: [id number] Cosigned by: [id number] Admin: 11/25/18 21:09 Dose: 12 units Documented by: [id number] Cosigned by: [id number] Metoprolol Succinate (Toprol Xl) 200 mg PO QAM SUKHWINDER Stop: 12/26/18 08:59 Last Admin: 11/26/18 09:01 Dose: 200 mg Documented by: [id number] Sacubitril/Valsartan (Entresto 49/51mg) 1 tab PO BID SUKHWINDER; Protocol Stop: 12/25/18 20:59 Last Admin: 11/26/18 09:00 Dose: 1 tab Documented by: [id number] Admin: 11/25/18 20:32 Dose: 1 tab Documented by: [id number] Sacubitril/Valsartan (Entresto 24/26mg) 2 tab PO BID SUKHWINDER Stop: 12/25/18 20:59 Last Admin: 11/26/18 09:00 Dose: 2 tab Documented by: [id number] Admin: 11/25/18 20:32 Dose: 2 tab Documented by: [id number] Discontinued Medications Albuterol (Duoneb) 3 ml NEB NOW STA Stop: 11/25/18 13:39 Last Admin: 11/25/18 13:57 Dose: 3 ml Documented by: [id number] Furosemide (Lasix) 40 mg IV NOW STA Stop: 11/25/18 13:37 Last Admin: 11/25/18 14:27 Dose: 40 mg Documented by: [id number] Furosemide (Lasix) 40 mg IV NOW STA Stop: 11/25/18 21:38 Last Admin: 11/25/18 21:48 Dose: 40 mg Documented by: [id number] Influenza Virus Vaccine Quadrival (Flucelvax Quad Vaccine) 0.5 ml IM .ONCE ONE Stop: 11/25/18 21:01 Last Admin: 11/26/18 09:03 Dose: Not Given Documented by: [id number] Insulin Aspart (Novolog Flexpen) 0 units SC 0200 SUKHWINDER; Protocol Stop: 11/26/18 02:01 Last Admin: 11/26/18 01:27 Dose: 1 units Documented by: [id number] Cosigned by: [id number] Nitroglycerin (Nitro-Bid 2%) 0.5 inch EXT NOW ONE Stop: 11/25/18 13:37 Last Admin: 11/25/18 14:02 Dose: 0.5 inch Documented by: [id number] Medical Decision Making Differential Diagnosis Differential diagnosis: Etiologies such as infections, reactive airway disease, pneumonia, pneumothorax, COPD, CHF, cardiac ischemia, pulmonary embolism, musculoskeletal, gastrointestinal, as well as others were entertained. Medical Records Attestation: I reviewed the patient's medical records. Home Medications Current Medication List: was personally reviewed by me Laboratory Data Attestation: I reviewed the patient's lab results. Result diagrams: 11/26/18 06:32 11/26/18 06:32 Lab Results 11/25/18 11/25/18 11/25/18 Range/Units 14:04 14:06 14:06 WBC 9.68 (4.8-10.8) K/uL RBC 4.87 (4.7-6.1) M/uL Hgb 14.0 (14.0-18.0) g/dL Hct 41.6 L (42-52) % MCV 85.4 (80-100) fL MCH 28.7 (25-34) pg MCHC 33.7 (32-36) g/dL RDW Std Deviation 47.5 H (36.4-46.3) fL RDW Coeff of Zoltan 15.4 H (11.5-14.5) % Plt Count 138 (130-400) K/uL MPV 10.6 H (7.4-10.4) fL Immature Gran % (Auto) 0.2 % Neut % (Auto) 73.2 % Lymph % (Auto) 17.5 % [place] % (Auto) 8.1 % Eos % (Auto) 0.8 % Baso % (Auto) 0.2 % Immature Gran # (Auto) 0.02 (0.00-0.02) K/uL Neut # (Auto) 7.09 H (1.4-6.5) K/uL Lymph # (Auto) 1.69 (1.2-3.4) K/uL [place] # (Auto) 0.78 H (0.11-0.59) K/uL Eos # (Auto) 0.08 (0-0.5) K/uL Baso # (Auto) 0.02 (0-0.2) K/uL PT Cancelled INR Cancelled APTT Cancelled PTT Ratio Cancelled VBG pH 7.45 H (7.36-7.41) VBG pCO2 34 L (38-50) mmHg VBG pO2 49 mmHg VBG HCO3 23 mmol/L VBG O2 Saturation 84.1 % VBG Base Excess -0.2 mEq/L Barometric Pressure 731.2 mm/Hg Sodium (136-145) mmol/L Potassium (3.5-5.1) mmol/L Chloride (98-107) mmol/L Carbon Dioxide (21-32) mmol/L Anion Gap (3-11) BUN (7-18) mg/dl Creatinine (0.6-1.4) mg/dl Est Cr Clr Drug Dosing ml/min Est GFR ( Amer) Est GFR (Non-Af Amer) BUN/Creatinine Ratio (10-20) Glucose (70-99) mg/dl Calcium (8.5-10.1) mg/dl Magnesium (1.8-2.4) mg/dl Total Bilirubin (0.2-1) mg/dl AST (15-37) U/L ALT (12-78) U/L Alkaline Phosphatase (45-117) U/L Troponin I (0-0.045) ng/ml Total Protein (6.4-8.2) gm/dl Albumin (3.4-5.0) gm/dl Globulin (2.5-4.0) gm/dl Albumin/Globulin Ratio (0.9-2) Urine Color Urine Appearance (Clear) Urine pH (4.5-7.5) Ur Specific [place] (1.000-1.030) Urine Protein (Negative) Urine Glucose (UA) (Negative) Urine Ketones (Negative) Urine Blood (Negative) Urine Nitrite (Negative) Urine Bilirubin (Negative) Urine Urobilinogen (Negative) Ur Leukocyte Esterase (Negative) Urine WBC (Auto) (0-5) /hpf Urine RBC (Auto) (0-4) /hpf U Hyaline Cast (Auto) (0-5) /lpf U Epithel Cells (Auto) (0-5) /lpf Urine Bacteria (Auto) (Negative) 11/25/18 11/25/18 11/25/18 Range/Units 14:06 15:34 15:34 WBC (4.8-10.8) K/uL RBC (4.7-6.1) M/uL Hgb (14.0-18.0) g/dL Hct (42-52) % MCV (80-100) fL MCH (25-34) pg MCHC (32-36) g/dL RDW Std Deviation (36.4-46.3) fL RDW Coeff of Zoltan (11.5-14.5) % Plt Count (130-400) K/uL MPV (7.4-10.4) fL Immature Gran % (Auto) % Neut % (Auto) % Lymph % (Auto) % [place] % (Auto) % Eos % (Auto) % Baso % (Auto) % Immature Gran # (Auto) (0.00-0.02) K/uL Neut # (Auto) (1.4-6.5) K/uL Lymph # (Auto) (1.2-3.4) K/uL [place] # (Auto) (0.11-0.59) K/uL Eos # (Auto) (0-0.5) K/uL Baso # (Auto) (0-0.2) K/uL PT 10.9 INR 1.1 APTT 27.1 PTT Ratio 1.0 VBG pH (7.36-7.41) VBG pCO2 (38-50) mmHg VBG pO2 mmHg VBG HCO3 mmol/L VBG O2 Saturation % VBG Base Excess mEq/L Barometric Pressure mm/Hg Sodium 137 (136-145) mmol/L Potassium (3.5-5.1) mmol/L Chloride 107 (98-107) mmol/L Carbon Dioxide 24 (21-32) mmol/L Anion Gap 6.0 (3-11) BUN 11 (7-18) mg/dl Creatinine 0.99 (0.6-1.4) mg/dl Est Cr Clr Drug Dosing 149.8 ml/min Est GFR ( Amer) 109.2 Est GFR (Non-Af Amer) 94.2 BUN/Creatinine Ratio 11.1 (10-20) Glucose 136 H (70-99) mg/dl Calcium 8.7 (8.5-10.1) mg/dl Magnesium (1.8-2.4) mg/dl Total Bilirubin 1.5 H (0.2-1) mg/dl AST (15-37) U/L ALT 30 (12-78) U/L Alkaline Phosphatase 94 (45-117) U/L Troponin I < 0.015 (0-0.045) ng/ml Total Protein 7.5 (6.4-8.2) gm/dl Albumin 3.4 (3.4-5.0) gm/dl Globulin 4.1 H (2.5-4.0) gm/dl Albumin/Globulin Ratio 0.8 L (0.9-2) Urine Color Yellow Urine Appearance Clear (Clear) Urine pH 5.0 (4.5-7.5) Ur Specific [place] 1.022 (1.000-1.030) Urine Protein 3+ H (Negative) Urine Glucose (UA) Negative (Negative) Urine Ketones Negative (Negative) Urine Blood Trace H (Negative) Urine Nitrite Negative (Negative) Urine Bilirubin Negative (Negative) Urine Urobilinogen Negative (Negative) Ur Leukocyte Esterase Negative (Negative) Urine WBC (Auto) 5-10 H (0-5) /hpf Urine RBC (Auto) 0-4 (0-4) /hpf U Hyaline Cast (Auto) 5-10 H (0-5) /lpf U Epithel Cells (Auto) >30 H (0-5) /lpf Urine Bacteria (Auto) Negative (Negative) 11/25/18 Range/Units 16:39 WBC (4.8-10.8) K/uL RBC (4.7-6.1) M/uL Hgb (14.0-18.0) g/dL Hct (42-52) % MCV (80-100) fL MCH (25-34) pg MCHC (32-36) g/dL RDW Std Deviation (36.4-46.3) fL RDW Coeff of Zoltan (11.5-14.5) % Plt Count (130-400) K/uL MPV (7.4-10.4) fL Immature Gran % (Auto) % Neut % (Auto) % Lymph % (Auto) % [place] % (Auto) % Eos % (Auto) % Baso % (Auto) % Immature Gran # (Auto) (0.00-0.02) K/uL Neut # (Auto) (1.4-6.5) K/uL Lymph # (Auto) (1.2-3.4) K/uL [place] # (Auto) (0.11-0.59) K/uL Eos # (Auto) (0-0.5) K/uL Baso # (Auto) (0-0.2) K/uL PT INR APTT PTT Ratio VBG pH (7.36-7.41) VBG pCO2 (38-50) mmHg VBG pO2 mmHg VBG HCO3 mmol/L VBG O2 Saturation % VBG Base Excess mEq/L Barometric Pressure mm/Hg Sodium (136-145) mmol/L Potassium 4.1 (3.5-5.1) mmol/L Chloride (98-107) mmol/L Carbon Dioxide (21-32) mmol/L Anion Gap (3-11) BUN (7-18) mg/dl Creatinine (0.6-1.4) mg/dl Est Cr Clr Drug Dosing ml/min Est GFR ( Amer) Est GFR (Non-Af Amer) BUN/Creatinine Ratio (10-20) Glucose (70-99) mg/dl Calcium (8.5-10.1) mg/dl Magnesium 1.7 L (1.8-2.4) mg/dl Total Bilirubin (0.2-1) mg/dl AST 15 (15-37) U/L ALT (12-78) U/L Alkaline Phosphatase (45-117) U/L Troponin I (0-0.045) ng/ml Total Protein (6.4-8.2) gm/dl Albumin (3.4-5.0) gm/dl Globulin (2.5-4.0) gm/dl Albumin/Globulin Ratio (0.9-2) Urine Color Urine Appearance (Clear) Urine pH (4.5-7.5) Ur Specific [place] (1.000-1.030) Urine Protein (Negative) Urine Glucose (UA) (Negative) Urine Ketones (Negative) Urine Blood (Negative) Urine Nitrite (Negative) Urine Bilirubin (Negative) Urine Urobilinogen (Negative) Ur Leukocyte Esterase (Negative) Urine WBC (Auto) (0-5) /hpf Urine RBC (Auto) (0-4) /hpf U Hyaline Cast (Auto) (0-5) /lpf U Epithel Cells (Auto) (0-5) /lpf Urine Bacteria (Auto) (Negative) Imaging Data Radiologist's Impression: Radiology results as stated below per my review and the radiologist's interpretation: XR chest 1V portable CLINICAL HISTORY: Dyspnea COMPARISON STUDY: 10/25/2018 FINDINGS: The heart remains enlarged. There is continued radiographic evidence for congestive failure/fluid overload. There is a more focal airspace opacity at the right lung base, likely representing focal edema although a superimposed pneumonitis could appear similar[ IMPRESSION: 1. Continued radiographic evidence of congestive failure/fluid overload 2. More focal airspace opacity at the right lung base, likely representing focal edema Electronically signed by: Garrett Muniz M.D. 11/25/2018 1:59 PM ECG Data Attestation: I personally reviewed and interpreted this ECG as follows: Indication: SOB/dyspnea Rate (beats per minute): 120 Rhythm: sinus tachycardia Findings: + ST depression (lateral and inferior); no PAC, no PVC and no ectopy Comparison ECG Date: from (10/31/18) Change: no significant change Blood Pressure Blood Pressure Findings: Elevated blood pressure Blood Pressure Disposition: further management by hospitalist BEENA Cody The patient is a 42-year-old male who presented to the emergency department for an evaluation of shortness of breath. The patient has a long history of CHF. He is very noncompliant with medications and reviewing his internal records he appears to be very noncompliant with his follow-up visits. The patient has significant elevation in blood pressure as well as hypoxia. He was treated with nitroglycerin paste as well as Lasix. He was reevaluated multiple times. He was complaining of hemoptysis. The patient was found to have signs of volume overload and pulmonary edema. He was reevaluated multiple times. I discussed his case with the [facility] cardiology group but they were unsure if the patient still followed up with him. Upon questioning the patient states he does have a scheduled appointment with [facility] cardiology group but still sees the CHF clinic with [facility]. I discussed this case with the on-call [facility] hospitalist group. They have agreed to evaluate the patient in the emergency department for further management disposition. I do feel the patient seems to be improving however given his status right now I do feel he may require inpatient management to further improve his volume overload. Impression & Plan Pulmonary edema, Hemoptysis, Hypoxia, Tachycardia, CHF (congestive heart failure) Discharge Plan Visit Data *Final* Discharge Date/Time: 11/25/18 18:03 Chief Complaint: Chest Pain Stated Complaint: EXTREME SOB, CHEST PAINS, COUGHING BLOOD ED Provider: Rodney Hilton Discharge Problem: Pulmonary edema, Hemoptysis, Hypoxia, Tachycardia, CHF (congestive heart failure) Patient Disposition: Admitted As Inpatient Discharge Instructions Interventions: ED Discharge Assessment Last Done: 11/25/18 18:03 Discharge Problem: Pulmonary edema Qualifiers: Chronicity: chronic Qualified Code(s): J81.1 - Chronic pulmonary edema CHF (congestive heart failure) Qualifiers: Heart failure type: unspecified Heart failure chronicity: unspecified Qualified Code(s): I50.9 - Heart failure, unspecified The scribe's documentation has been prepared under my direction and personally reviewed by me in its entirety. I confirm that the note above accurately reflects all work, treatment, procedures, and medical decision making performed by me.
[2018-11-25 14:16] LABS: Base Excess VBG -0.2 mEq/L; Oxygen Saturation VBG 84.1 %; pH VBG 7.45 (7.36-7.41)
[2018-11-25 14:17] LABS: Basophils # (auto) 0.02 K/uL (0-0.2); Basophils % (auto) 0.2 %; Eosinophils # (auto) 0.08 K/uL (0-0.5); Eosinophils % (auto) 0.8 %; Hematocrit (blood only) 41.6 % (42-52); Immature Granulocytes # (auto) 0.02 K/uL (0.00-0.02); Immature Granulocytes % (auto) 0.2 %; Lymphocytes # (auto) 1.69 K/uL (1.2-3.4); Lymphocytes % (auto) 17.5 %; Mean Corpuscular Hemoglobin 28.7 pg (25-34); Mean Corpuscular Hgb Conc 33.7 g/dL (32-36); Mean Corpuscular Volume 85.4 fL (80-100); Mean Platelet Volume 10.6 fL (7.4-10.4); Monocytes # (auto) 0.78 K/uL (0.11-0.59); Monocytes % (auto) 8.1 %; Neutrophils # (auto) 7.09 K/uL (1.4-6.5); Neutrophils % (auto) 73.2 %; Platelet Count 138 K/uL (130-400); RDW Coefficient of Variation 15.4 % (11.5-14.5); RDW Standard Deviation 47.5 fL (36.4-46.3); Red Blood Count 4.87 M/uL (4.7-6.1); White Blood Count 9.68 K/uL (4.8-10.8)
[2018-11-25 14:41] LABS: Appearance Urine Clear (Clear); Bacteria Urine Automated Negative (Negative); Bilirubin Urine Negative (Negative); Blood Urine Trace (Negative); Color Urine Yellow; Epithelial Cell Urine Auto >30 /lpf (0-5); Glucose Urine UA Negative (Negative); Ketones Urine Negative (Negative); Leukocyte Esterase Urine Negative (Negative); Nitrite Urine Negative (Negative); Protein Urine 3+ (Negative); RBC Urine Automated 0-4 /hpf (0-4); Specific Gravity Urine 1.022 (1.000-1.030); Urobilinogen Urine Negative (Negative)
[2018-11-25 16:08] LABS: INR 1.1 (0.9-1.1); Partial Thromboplastin Time 27.1 Seconds (21.0-31.0); Prothrombin Time 10.9 Seconds (9.0-12.0)
[2018-11-25 16:26] LABS: Alanine Aminotransferase 30 U/L (12-78); Albumin Globulin Ratio 0.8 (0.9-2); Albumin Level 3.4 gm/dl (3.4-5.0); Alkaline Phosphatase 94 U/L (45-117); BUN Creatinine Ratio 11.1 (10-20); Bilirubin,Total 1.5 mg/dl (0.2-1); Blood Urea Nitrogen 11 mg/dl (7-18); Calcium 8.7 mg/dl (8.5-10.1); Carbon Dioxide 24 mmol/L (21-32); Chloride 107 mmol/L (98-107); Creatinine Clr Calc Pharmacy 149.8 ml/min; Est GFR (African American) 109.2; Est GFR (Non-African American) 94.2; Globulin 4.1 gm/dl (2.5-4.0); Glucose 136 mg/dl (70-99); Sodium 137 mmol/L (136-145); Total Protein 7.5 gm/dl (6.4-8.2); Troponin I < 0.015 ng/ml (0-0.045)
[2018-11-25 17:08] LABS: Potassium 4.1 mmol/L (3.5-5.1)
[2018-11-25 17:13] LABS: Magnesium 1.7 mg/dl (1.8-2.4)
--- NOTE | 2018-11-25 17:15 | History & Physical Report ---
Date of Service November 25, 2018 Assessment & Plan (1) Acute on chronic systolic (congestive) heart failure: Concern for acute on chronic systolic CHF exacerbation due to compliance issues. - Continue Lasix 40mg IV BID - I&Os, daily weights - Will discuss with Corie Mazariegos PA-C (2) Nonischemic cardiomyopathy: Thought to be due to hypertension. EF was most recently 50-55% on echo with outside credentialing assistant in 10/2018. - Continue HF regimen: beta-mansoor, Entresto (3) Diabetes mellitus, type II: A1c of 7.4% in 10/2018. - Sliding scale insulin - Glycemic pharmacist consult given his non-standard insulin regimen (4) Hypertension: Often quite high BPs. 150/100 in the ED. - Continue beta-mansoor, Entresto, hydralazine - Hydralazine PRN (5) Obstructive sleep apnea: Reports some issue with his BiPap machine overnight, reporting his body "shut down" when trying to use it last night. - Supply BiPap if he would like - Settings appear to be 16/10 per prior notes (6) GERD (gastroesophageal reflux disease): - Continue PPI (7) COPD (chronic obstructive pulmonary disease): Unclear if this is truly a diagnosis or not. Does use a Combivent inhaler PRN. - DuoNebs PRN (8) DVT prophylaxis: SCDs - Low DVT risk per admission calculator History of Present Illness Primary Care Provider: Ilir Qureshi MD 42yo M w/ hx of NICM & DM who presents with likely CHF exacerbation. Patient reports that for the last 2 days, he has been unable to lie flat or catch his breath. He reports some hemoptysis, though he has a hard time telling me how new this is for him. He has had this in the past, especially with CHF exacerbations. He denies any leg swelling to me. He reports he is taking his medications as directed. He reports subjective chills, though no objective fevers taken at home. He also is concerned that he is nodding off in the bus and while waiting for the bus. He denies any nausea. He reports somnolence. Allergies Allergy/AdvReac Type Severity Reaction Status Date / Time ceftriaxone Allergy Severe SHORTNESS Verified 11/25/18 14:54 OF BREATH lidocaine Allergy Severe SHORTNESS Verified 11/25/18 14:54 OF BREATH, diaphoretic, hives procaine Allergy Severe SHORTNESS Verified 11/25/18 14:54 OF BREATH, diaphoretic, hives amoxicillin Allergy Intermediate HIVES/FACIAL Verified 11/25/18 14:54 SWELLING lisinopril Allergy Intermediate HIVES Verified 11/25/18 14:54 albuterol Allergy Mild proair Verified 11/25/18 14:54 "trouble taking breaths" clavulanic acid Allergy Unknown . Verified 11/25/18 14:54 acetaminophen AdvReac Mild NAUSEA Verified 11/25/18 14:54 Home Medications Home Medications Medication Instructions Recorded Confirmed Type sacubitril-valsartan [Entresto] 1 tab PO BID #60 tab 08/19/18 11/25/18 Rx insulin lispro protamine-lispro 40 units SQ BID ml 08/28/18 11/25/18 History 100 unit/mL (50-50) subcutaneous pen esomeprazole magnesium 20 mg 20 mg PO BID cap 09/05/18 11/25/18 History capsule,delayed release ipratropium 20 mcg-albuterol 100 1 puff INHALATION Q6H PRN 09/05/18 11/25/18 History mcg/actuation mist for inhalation aspirin 81 mg tablet,delayed 81 mg PO QAM 09/17/18 11/25/18 History release cholecalciferol (vitamin D3) 1,000 2,000 units PO BID cap 09/17/18 11/25/18 History unit capsule cetirizine [Zyrtec] 10 mg PO QAM 10/25/18 11/25/18 History metoprolol succinate ER 200 mg 200 mg PO QAM tab 11/11/18 11/25/18 History tablet,extended release 24 hr dulaglutide 1.5 mg/0.5 mL 1.5 mg SQ WEEKLY ml 11/12/18 11/25/18 History subcutaneous pen injector hydralazine 100 mg tablet 100 mg PO BID #180 tab 11/14/18 11/25/18 Rx metolazone 5 mg tablet 5 mg PO BID PRN #12 tab 11/14/18 11/25/18 History torsemide 20 mg tablet 60 mg PO BID #60 tab 11/14/18 11/25/18 Rx Past Med/Surg History Medical History Morbid obesity (Chronic) BMI> 50 Sinus bradycardia Acute on chronic systolic (congestive) heart failure (Chronic) Nonischemic cardiomyopathy Peripheral neuropathy (Chronic) 2/2 DM type II. Located on the feet bilaterally. Not requiring medication. 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 Difficult to manage. Integrated into heart failure clinic. Frequent admissions for heart failure exacerbations. Echo (05/31) EF=25-30% with mod to severe global hypokinesis, basal kelsi-septal akinetic wall, LVH, RVSP elevated at 30-40mmHg, and mod dilated ascending aorta. Managed medically with ASA + BB + ARB/Neprilysin inhibitor (Entresto) + high dose furosemide (160mg BID) + metolazone (3x weekly). Considering ICD given EF. 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) Lung nodule (Acute) Dyslipidemia (Acute) Depression with anxiety (Acute) Cluster headache (Acute) Carpal tunnel syndrome (Acute) Bilateral knee pain (Acute) Hemoptysis GERD (gastroesophageal reflux disease) COPD (chronic obstructive pulmonary disease) (Chronic) Acquired claw toe of left foot (Acute) Acquired claw toe of right foot (Acute) Diabetes mellitus with diabetic polyneuropathy (Acute) Back pain (Resolved) Learning disability (Resolved) Cognitive impairment DM II (diabetes mellitus, type II), controlled Depression Fatty liver GERD (gastroesophageal reflux disease) HTN (hypertension) Medical non-compliance Morbid obesity with BMI of 50.0-59.9, adult Nonischemic cardiomyopathy EF 30-35% MARIELENA (obstructive sleep apnea) Does not comply with CPAP Surgical History History of cholecystectomy S/P tonsillectomy Family History Father Heart disease Other Depression Lung disease No pertinent family history Social History Preferred Language: Slovak Communication Ability: Effective Visual Impairment: No Limitations Research Agricultural Engineer Required: No Beliefs That Will Affect Care: None marital status: Current Living Situation: Spouse current occupational status: unemployed Feels Safe at Home: Yes Safety Concerns: Feels Safe At This Time Smoking Status: Never smoker Tobacco Type: cigarettes ; Cigarettes Per Day: reports he quit smoking at 14 years old ; Second Hand Exposure: No ; Hx Alcohol Use: No Hx Substance Use: No Review of Systems Constitutional: + chills; no fever and no sweats Eyes: no diplopia Ear, Nose, Mouth, Throat: no ear trauma, no nasal discharge and no dental pain Respiratory: + dyspnea; no cough and no chest congestion Cardiovascular: + dyspnea on exertion; no chest pain, no palpitations and no syncope Gastrointestinal: no abdominal pain, no belching, no constipation, no diarrhea/loose stools, no blood in stools and no melena Musculoskeletal: no back pain, no joint pain and no muscle weakness Integumentary: no rash, no skin ulcer and no erythema Neurologic: no generalized weakness, no loss of sensation, no numbness and no paresthesia Psychiatric: no depression and no anxiety Endocrine: + fatigue; no polydipsia and no polyphagia Physical Exam Constitutional: WD/WN, vitals as above Eyes: EOM intact bilaterally; no conjunctival abnormality ENMT: external ear and nose normal, oropharynx normal Neck: trachea midline, no thyromegaly normal visual inspection Respiratory: normal respiratory effort, lungs clear to auscultation + labored breathing and + tachypneic; no respiratory distress Cardiovascular: Rate/Rhythm: + tachycardic Heart Sounds: normal S1 and normal S2 Gastrointestinal (Abdomen): Inspection/Auscultation: abdomen normal to inspection; abdomen not distended Musculoskeletal: no cyanosis or clubbing, extremities motor strength 5/5 Skin: no rashes, warm and dry Neurologic: moves all extremities and awake Psychiatric: Orientation: alert, oriented to person and cooperative Results & Data Vital Signs (Past 12 Hours) Vital Signs Temp Pulse Pulse Resp BP Pulse Ox 11/25/18 17:00 127 H 32 H 88 L 11/25/18 16:32 113 H 20 151/104 H 90 11/25/18 16:30 115 H 24 95 11/25/18 16:04 119 H 31 H 169/133 H 92 11/25/18 16:00 119 H 32 H 94 11/25/18 15:33 121 H 37 H 91 11/25/18 15:32 128 H 29 H 189/142 H 93 11/25/18 15:30 114 H 18 93 11/25/18 15:02 110 H 25 H 181/104 H 90 11/25/18 15:00 110 H 24 90 11/25/18 14:32 121 H 27 H 166/141 H 89 L 11/25/18 14:30 120 H 25 H 91 11/25/18 14:02 121 H 31 H 160/134 H 99 11/25/18 14:01 123 H 32 H 98 11/25/18 13:58 118 H 28 H 90 11/25/18 13:56 122 H 24 198/149 H 99 11/25/18 13:16 36.4 C L 133 H 30 H 205/115 H 89 L PG Care Time/CCT Total # of Minutes Spent Total Time Spent with Patient: Total time spent is greater than 50% in physical therapy coordinator rdination of care (as documented) at patient's floor/unit and/or counseling patient: (1) Diabetes mellitus, type II Diabetes mellitus rn long term care insulin use: with rn long term care use Diabetes mellitus complication status: with other specified complication Qualified Code(s): E11.69 - Type 2 diabetes mellitus with other specified complication; Z79.4 - skilled nursing (current) use of insulin (2) Hypertension Hypertension type: unspecified Qualified Code(s): I10 - Essential (primary) hypertension (3) GERD (gastroesophageal reflux disease) Esophagitis presence: without esophagitis Qualified Code(s): K21.9 - Gastro- esophageal reflux disease without esophagitis (4) COPD (chronic obstructive pulmonary disease) COPD type: unspecified COPD Qualified Code(s): J44.9 - Chronic obstructive pulmonary disease, unspecified
[2018-11-25] MEDS ORDERED: GLUCOSE 40% GEL 15 GM TUBE PO PRN (19:12)
[2018-11-25] MEDS ORDERED: CARBOHYDRATES FOR HYPOGLYCEMIA PO PRN (19:12)
[2018-11-25] MEDS ORDERED: ALBUT/IPRATROP 3MG/0.5MG NEB 3 ML VIAL NEB PRN (19:12)
[2018-11-25] MEDS ORDERED: ACETAMINOPHEN 325 MG TAB PO PRN (19:12)
[2018-11-25] MEDS ORDERED: HydrALAZINE HCL 20 MG/ML VIAL IV PRN (19:12)
[2018-11-25] MEDS ORDERED: DEXTROSE 50% 50 ML SYRINGE IV PRN (19:12)
[2018-11-25] MEDS ORDERED: GLUCOSE 10 TABS/TUBE PO PRN (19:12)
[2018-11-25] MEDS ORDERED: GLUCAGON FOR INJ 1 MG VIAL SQ PRN (19:12)
[2018-11-25] MEDS ORDERED: PHARMACY GLYCEMIC MGMT CONSULT PRN (19:28)
[2018-11-25] MEDS: SACUBITRIL-VALSARTAN 24-26 MG TAB PO SCH (20:32)
[2018-11-25] MEDS: SACUBITRIL-VALSARTAN 49/51 MG TAB PO SCH (20:32)
[2018-11-25] MEDS: HydrALAZINE TAB 50 MG TAB PO SCH (20:33)
[2018-11-25] MEDS ORDERED: INSULIN GLARGINE SOLOSTAR 100 UNITS/ML 3 ML PEN SC SCH (21:00)
[2018-11-25] MEDS ORDERED: INFLUENZA ADMINISTRATION CHARGE ONE (21:00)
[2018-11-25] MEDS ORDERED: INFLUENZA VIRUS QUAD VACCINE 0.5 ML SYR IM ONE (21:00)
[2018-11-25] MEDS: INSULIN ASPART 100 UNITS/ML 3 ML PEN SC SCH (21:06)
[2018-11-25] MEDS: INSULIN GLARGINE SOLOSTAR 100 UNITS/ML 3 ML PEN SC SCH (21:09)
[2018-11-26] MEDS ORDERED: INSULIN ASPART 100 UNITS/ML 3 ML PEN SC SCH (02:00)
--- NOTE | 2018-11-26 06:28 | Ultrasound Report ---
US venous doppler LE BI HISTORY: Pain. Edema. leg swelling, leg pain COMPARISON STUDY: None. FINDINGS: There is normal compressibility, flow, and augmentation within the bilateral lower extremit y deep venous systems. IMPRESSION: No DVT within the right or left lower extremity. The above report was generated using voice recognition software. It may contain grammatical, syntax or spelling errors. Electronically signed by: Cleveland Concepcion M.D. 11/26/2018 6:26 AM
[2018-11-26 06:45] LABS: Hemoglobin 14.9 g/dL (14.0-18.0); Mean Corpuscular Hemoglobin 29.4 pg (25-34); Mean Corpuscular Hgb Conc 34.7 g/dL (32-36); Mean Platelet Volume 10.2 fL (7.4-10.4); Platelet Count 135 K/uL (130-400); RDW Coefficient of Variation 15.2 % (11.5-14.5); RDW Standard Deviation 46.6 fL (36.4-46.3); Red Blood Count 5.06 M/uL (4.7-6.1); White Blood Count 8.28 K/uL (4.8-10.8)
[2018-11-26 07:23] LABS: BUN Creatinine Ratio 11.1 (10-20); Calcium 8.7 mg/dl (8.5-10.1); Creatinine Clr Calc Pharmacy 164.8 ml/min; Est GFR (African American) 122.5; Est GFR (Non-African American) 105.7; Magnesium 1.8 mg/dl (1.8-2.4); Potassium 3.7 mmol/L (3.5-5.1)
[2018-11-26] MEDS: HydrALAZINE TAB 50 MG TAB PO SCH (08:59)
[2018-11-26] MEDS ORDERED: ASPIRIN 81 MG ECTAB PO SCH (09:00)
[2018-11-26] MEDS: SACUBITRIL-VALSARTAN 49/51 MG TAB PO SCH (09:00)
[2018-11-26] MEDS ORDERED: FUROSEMIDE 40 MG in SYRINGE 0 ML IV SCH (09:00)
[2018-11-26] MEDS ORDERED: METOPROLOL SUCC 50MG EXT REL TAB PO SCH (09:00)
[2018-11-26] MEDS: SACUBITRIL-VALSARTAN 24-26 MG TAB PO SCH (09:00)
[2018-11-26] MEDS: INSULIN GLARGINE SOLOSTAR 100 UNITS/ML 3 ML PEN SC SCH (09:01)
[2018-11-26] MEDS: INSULIN ASPART 100 UNITS/ML 3 ML PEN SC SCH ×2 (09:02→12:30)
[2018-11-26] MEDS ORDERED: FUROSEMIDE 80 MG in SYRINGE 0 ML IV SCH (09:30)
--- NOTE | 2018-11-26 09:52 | Pharmacy Report ---
Glycemic Control Consultation - Date of Service November 26, 2018 - Scope Scope: Glycemic Pharmacist consulted by Dr Hunt on 11/25/18 for glycemic control and to write orders per [facility] inpatient glycemic control protocol - Objective Weight: 167 kg Accuchecks BSG (last 24hrs): 11/25/18 11/25/18 11/26/18 15:34 20:54 01:24 Glucose 136 H POC Glucose 159 H 148 H 11/26/18 11/26/18 06:32 07:25 Glucose 131 H POC Glucose 123 H Laboratory Data (last 24hrs): 11/25/18 11/25/18 11/26/18 15:34 16:39 06:32 Potassium 4.1 3.7 Carbon Dioxide 24 25 Anion Gap 6.0 8.0 Creatinine 0.99 0.90 Est Cr Clr Drug Dosing 149.8 164.8 - Recent Pertinent Medications Outpatient Anti-diabetic Regimen: * Humalog 50:50 mix 40 units BIDM (holds if BSG less than 100 mg/dL) - per patient, he does not take this often (last fill was 08/29/18 from [facility]) * Trulicity 1.5 mg SC weekly (patient takes on Wednesdays) * A1c = 7.4 % (10/31/18) - Assessment & Plan Assessment & Plan: ASSESSMENT: * MG is a 42 year old male admitted to [facility] on 11/25 with concern for CHF exacerbation * PMH includes CHF, nonischemic cardiomyopathy, type 2 DM, hypertension, MARIELENA, GERD, and COPD * Initial insulin regimen derived from previous admission data from August of this year, which resulted in reasonable glycemic control * Will titrate as necessary * BSGs ranging 123-159 since admission * Fasting BSG this morning of 123 mg/dL PLAN FOR INPATIENT GLYCEMIC CONTROL: * Will hold outpatient Humalog 50:50 mix and Trulicity in favor of SC basal/bolus with Lantus and Novolog * Basal insulin - initiate scale * Lantus 10-12 units SQ BID * -10 units: If BSG less than or equal to 120 mg/dL * -12 units: If BSG greater than or equal to 121 mg/dL * Bolus insulin * NovoLog per scale ACHS or Q6hrs while NPO * Goal Range: Low 110 mg/dL - High 140 mg/dL * Correction Factor: 25 mg/dL/unit * Nutritional / Prandial insulin per carb ratio of 1 unit per 9 grams CHO consumed * Please note that the plan above was derived based on current level of insulin resistance and hospital stress. These recommendations are appropriate for inpatient admission only. Plan of care upon discharge will need to be reassessed to avoid potential outpatient hypo/hyperglycemia. Thank you.
--- NOTE | 2018-11-26 18:04 | Discharge Summary ---
Date of Service November 26, 2018 Admission HPI Per Admitting Provider 42yo M w/ hx of NICM & DM who presents with likely CHF exacerbation. Patient reports that for the last 2 days, he has been unable to lie flat or catch his breath. He reports some hemoptysis, though he has a hard time telling me how new this is for him. He has had this in the past, especially with CHF exacerbations. He denies any leg swelling to me. He reports he is taking his medications as directed. He reports subjective chills, though no objective fevers taken at home. He also is concerned that he is nodding off in the bus and while waiting for the bus. He denies any nausea. He reports somnolence. Principal Diagnosis CHF exacerbation Discharge Exam Constitutional WD/WN, vitals as above Eyes EOM intact bilaterally; no conjunctival abnormality ENMT external ear and nose normal, oropharynx normal Neck trachea midline, no thyromegaly normal visual inspection Respiratory normal respiratory effort, lungs clear to auscultation + labored breathing and + tachypneic; no respiratory distress Cardiovascular Rate/Rhythm: + tachycardic Heart Sounds: normal S1 and normal S2 Gastrointestinal (Abdomen) Inspection/Auscultation: abdomen normal to inspection; abdomen not distended Musculoskeletal no cyanosis or clubbing, extremities motor strength 5/5 Skin no rashes, warm and dry Neurologic moves all extremities and awake Psychiatric Orientation: alert, oriented to person and cooperative Discharge Data Allergies Allergy/AdvReac Type Severity Reaction Status Date / Time ceftriaxone Allergy Severe SHORTNESS Verified 11/25/18 14:54 OF BREATH lidocaine Allergy Severe SHORTNESS Verified 11/25/18 14:54 OF BREATH, diaphoretic, hives procaine Allergy Severe SHORTNESS Verified 11/25/18 14:54 OF BREATH, diaphoretic, hives amoxicillin Allergy Intermediate HIVES/FACIAL Verified 11/25/18 14:54 SWELLING lisinopril Allergy Intermediate HIVES Verified 11/25/18 14:54 albuterol Allergy Mild proair Verified 11/25/18 14:54 "trouble taking breaths" clavulanic acid Allergy Unknown . Verified 11/25/18 14:54 acetaminophen AdvReac Mild NAUSEA Verified 11/25/18 14:54 Consultations 11/25/18 16:36 ED Decision to Admit Stat Ordered Studies 11/26/18 04:30 US venous doppler LE Routine Hospital Course (1) Acute on chronic systolic (congestive) heart failure: Concern for acute on chronic systolic CHF exacerbation due to compliance issues. - Started Lasix 80mg IV BID -> He diuresed well while he was here, but unfortunately, he decided to leave on 11/26. I discussed why I felt this was not a good idea with him at long length; however, he and his were both in agreement that he go today. He was concerned about an ENT/audiology appointment, but I did tell him we could reschedule it. He declined. He has limited insight into his overall healthcare and is planning to switch to [facility] cardiology. I did tell him directly that this would prevent him from seeing Corie Mazariegos in clinic who has helped keep him out of the hospital, but he would not really address that. - No home medical changes as non-compliance is his main issue. (2) Nonischemic cardiomyopathy: Thought to be due to hypertension. EF was most recently 50-55% on echo with outside table worker packager in 10/2018. - Continue HF regimen: beta-mansoor, Entresto (3) Diabetes mellitus, type II: A1c of 7.4% in 10/2018. - Sliding scale insulin - Glycemic pharmacist consult given his non-standard insulin regimen (4) Hypertension: Often quite high BPs. 150/100 in the ED. - Continue beta-mansoor, Entresto, hydralazine - Hydralazine PRN (5) Obstructive sleep apnea: Reports some issue with his BiPap machine overnight, reporting his body "shut down" when trying to use it last night. - Supply BiPap if he would like - Settings appear to be 16/10 per prior notes (6) GERD (gastroesophageal reflux disease): - Continue PPI (7) COPD (chronic obstructive pulmonary disease): Unclear if this is truly a diagnosis or not. Does use a Combivent inhaler PRN. - DuoNebs PRN (8) DVT prophylaxis: SCDs - Low DVT risk per admission calculator Total Time Total Time Spent Total Time Spent (In Minutes): 35 Discharge Plan Discharge Items Patient Disposition: Home - Home Health Services Reason For Visit: CHF EXACERBATION Discharge Diagnosis: CHF exacerbation Activity: Resume your previous activity Non-emergency contact: Primary Care Provider and Vat Operator Call non-emergency contact if: your symptoms worsen Follow-up/Referrals: Ilir Qureshi MD [Primary Care Provider] - 12/02/18 1:00 pm (Please, follow up with Dr. Qureshi on SundayDecember 02 at 1:00 pm. *If you need to change/cancel this appointment, call the office at [phone].) Shon Hernandez DO [Vat Operator] - 12/03/18 1:45 pm (Please, follow up at [facility] Cardiology Office with Dr. Shon Hernandez on SundayDecember 03 at 1:45 pm. *The office is located at [address] [place] [address] in [facility]). If you need to change this appointment, call the office at [phone].) Diet: Heart Healthy and Low Sodium (2gm) Addtl Attending Provider Instructions: Mr. Huff, You were admitted to the hospital for a CHF exacerbation. You must lower your salt intake and take your water pills if you want to keep your fluid off. Please follow up with your table worker packager either at [facility] or [facility]. You were told that you cannot see Corie Mazariegos in the clinic if you would like to switch your care over to the [facility] heart doctors. Pending Studies at Discharge: No Stand-Alone Forms: Call Back Authorization, My [facility] Medications and DC Order Prescriptions: Continued Humalog Mix 50-50 KwikPen 100 unit/mL (50-50) insulin pen 40 units SQ BID RF: 0 Trulicity 1.5 mg/0.5 mL pen injector 1.5 mg SQ WEEKLY RF: 0 metoprolol succinate 200 mg tablet extended release 24 hr 200 mg PO QAM RF: 0 esomeprazole magnesium [Nexium] 20 mg capsule,delayed release(DR/EC) 20 mg PO BID RF: 0 hydralazine 100 mg tablet 100 mg PO BID Qty: 180 RF: 3 metolazone 5 mg tablet 5 mg PO BID PRN (Reason: Edema) Qty: 12 RF: 0 torsemide 20 mg tablet 60 mg PO BID Qty: 60 RF: 1 aspirin [Aspirin Low Dose] 81 mg tablet,delayed release (DR/EC) 81 mg PO QAM RF: 0 cetirizine [Zyrtec] 10 mg tablet 10 mg PO QAM RF: 0 Combivent Respimat 20-100 mcg/actuation mist 1 puff INHALATION Q6H PRN (Reason: Shortness Of Breath Or Wheezing) RF: 0 cholecalciferol (vitamin D3) [Vitamin D3] 1,000 unit capsule 2,000 units PO BID RF: 0 Entresto 97-103 mg tablet 1 tab PO BID Qty: 60 RF: 0 Discharge Orders: Discharge Order (Routine); Ordered 11/26/18 Ordered By: Mynor Hunt Admission Data Admit Date/Time: 11/25/18 17:06 Attending Provider: Mynor Hunt Admit Provider: Mynor Hunt Primary Care Provider: Ilir Qureshi Other Providers: Malcolm Knutson Other Interventions: Discharge Summary Assessment (RN) Last Done: 11/26/18 14:25 DC Date/Time DO NOT enter until pt leaves facility: 11/26/18 14:57
== END 2018-11-26 14:57 | disposition home or self-care (01) | DRG 292 ==
LOC: ED 13:07 → 2W 17:06

== ENCOUNTER 2018-12-08 13:16 | Inpatient (IN) ==
[2018-12-08] MEDS ORDERED: ASPIRIN CHEW 324 MG PO STA (14:06)
[2018-12-08 14:19] LABS: Basophils # (auto) 0.01 K/uL (0-0.2); Basophils % (auto) 0.1 %; Eosinophils # (auto) 0.05 K/uL (0-0.5); Eosinophils % (auto) 0.5 %; Immature Granulocytes # (auto) 0.04 K/uL (0.00-0.02); Immature Granulocytes % (auto) 0.4 %; Lymphocytes % (auto) 22.2 %; Mean Corpuscular Hemoglobin 29.2 pg (25-34); Mean Corpuscular Volume 83.5 fL (80-100); Mean Platelet Volume 9.8 fL (7.4-10.4); Monocytes # (auto) 0.67 K/uL (0.11-0.59); Monocytes % (auto) 7.1 %; Neutrophils # (auto) 6.57 K/uL (1.4-6.5); Neutrophils % (auto) 69.7 %; Platelet Count 195 K/uL (130-400); RDW Coefficient of Variation 14.7 % (11.5-14.5); RDW Standard Deviation 44.8 fL (36.4-46.3); Red Blood Count 4.79 M/uL (4.7-6.1); White Blood Count 9.44 K/uL (4.8-10.8)
--- NOTE | 2018-12-08 14:20 | XRay Report ---
XR chest 1V portable CLINICAL HISTORY: Chest Pain dyspnea COMPARISON STUDY: 08/25/2018 FINDINGS: Prominent pulmonary vasculature. Cardiomegaly. Diaphragms are smooth. IMPRESSION: Findings of pulmonary edema/congestive heart failure. This appearance is perhaps slightl y improved compared to the prior study. The above report was generated using voice recognition software. It may contain grammatical, syntax or spelling errors. Electronically signed by: Cleveland Concepcion M.D. 12/08/2018 2:19 PM
[2018-12-08] MEDS: NITROGLYCERIN SL 0.4 MG/TAB TAB SL PRN ×2 (14:30→14:41)
[2018-12-08 14:37] LABS: INR 1.1 (0.9-1.1); Partial Thromboplastin Time 27.5 Seconds (21.0-31.0); Prothrombin Time 10.8 Seconds (9.0-12.0)
[2018-12-08 14:50] LABS: BUN Creatinine Ratio 14.9 (10-20); Calcium 8.4 mg/dl (8.5-10.1); Creatinine Clr Calc Pharmacy 145.2 ml/min; Est GFR (African American) 106.6; Troponin I 0.03 ng/ml (0-0.045)
[2018-12-08] MEDS ORDERED: FUROSEMIDE 40 MG/4 ML VIAL IV STA (15:46)
--- NOTE | 2018-12-08 16:14 | History & Physical Report ---
Date of Service December 08, 2018 Assessment & Plan (1) Acute on chronic systolic (congestive) heart failure: - Admit to tele for observation - Pt left AMA on 11/26/18 when he was previously admitted for CHF exacerbation. - Given lasix 40 mg IV in the ER, will add another 40 mg IV dose tonight, monitor strict I's and O's, then continue with Lasix 80 mg IV BID dosing, holding torsemide - Follows with Mariah Mazariegos PA-C with CHF clinic as an outpatient, he has switched to [facility] cardiology, seeing them outpatient last week, he is agreeable to seeing our team in the hospital currently, will need to readdress this hospitalization and see which team he chooses to follow with. - Continue Entresto, hydralazine 100 mg BID, metolazone 5 my BID, metoprolol succinate 200 mg QAM - Pro-BNP = 3032 upon admission, negative troponin 0.030, trend x 1 more set - EKG reviewed (2) Nonischemic cardiomyopathy: - Most recent 2D echo with LVEF = 50-55% in Oct 2018 - Continue medications as above - Likely secondary to hypertension (3) Hypoxia: - Likely due to CHF exacerbation as above - Check CTPE to r/o thromboembolic disease - Unsure as to why the patient no longer has CPAP/BiPAP as he requires this for MARIELENA, recommend follow-up with Olga Banuelos with pulmonology as outpatient, will order bipap now - Continue supplemental O2 prn, typically does no require this as outpatient (4) Hemoptysis: - Ongoing as per pt report, has cough with small amount of dark red blood in mucous. - He previously had bronchoscopy for this which was completed by Dr. Murray in May 2018, no obvious etiology was found, it was thought that this was a result of malignant hypertension and CHF and was suggested that he could be compliant with BiPAP therapy. - May consider pulmonary consultation if patient able to produce sputum with hemoptysis, current Hgb stable at 14.0. Follow H&H with am labs (5) Hypertension: -Continue antihypertensive regimen as above -IV labetalol as needed SBP >160 or DBP >110 (6) Dyslipidemia: -not on statin, last lipid panel in Spring 2018 showed total cholesterol of 171. Diet and exercise encouraged as above (7) Diabetes mellitus, type II: - A1C = 7.4 on 10/31/18, no need to recheck - ISS with accuchecks achs - Glycemic pharmacy consulted - HH/DM Diet ordered (8) Peripheral neuropathy: -Secondary to DM type II (9) Obstructive sleep apnea: -order BiCPAP at bedtime , noncompliance/not wearing this likely contributing to hypoxia (10) Obesity hypoventilation syndrome: (11) COPD (chronic obstructive pulmonary disease): -Continue ipratropium inhaler as needed, -Order BiPAP at bedtime -Supplemental O2 -Follows with Olga Banuelos as outpatient, will need f/u upon discharge (12) Morbid obesity: -BMI equals 55 -Discussion was held regarding eating whole and unprocessed food, no sugar, no extra carbs, no soda etc at bedside. Exercise was encouraged however that is very difficult for the patient given his current respiratory status. Continue to encourage upon discharge. - HH/DM diet (13) GERD (gastroesophageal reflux disease): -Stable, patient avoids acidic foods which seems to help (14) Vitamin D insufficiency: -Continue supplementation (15) Depression with anxiety: -Patient uses coping mechanisms, is not on any medication (16) DVT prophylaxis: -SCDs, no chemical ppx with hemoptysis as above Code: Full code Dispo: From home, likely to remain in the hospital at least 1 night History of Present Illness Primary Care Provider: Ilir Qureshi MD This is a 42 yo M with PMHx of chronic systolic CHF, nonischemic cardiomyopathy, DM II, HTN, HLD, MARIELENA on bipap, COPD, GERD, vitamin D deficiency, anxiety, depression, and morbid obesity with BMI of 55, who presents with shortness of breath and pulmonary edema as seen on CXR for CHF exacerbation which worsened since he left AMA on 11/26/18. Patient reports that his main complaint today is worsening breathing over the past week as well as hemoptysis which has been ongoing for some time. He reports coughing up small dark red clots of mucus, never bright red. He has been needing to sleep sitting straight up, and has orthopnea with an level of lying back. He does not wear O2 at baseline. He reports he recently was taken off CPAP/BiPAP because he did not meet study requirements, therefore is no longer using this at night. He reports that he does not eat salt at all when asked about his diet. He reports eating healthy choice meals which have been covered by his insurance, and is sent 21 meals per week. He tells me he was recommended to eat 4 meals per day. He states that his main fluid intake consists of Sprite 0, and that he gags on water although he tries to drink 3 glasses of water per day. He does not exercise routinely. Pt is well-known to our cardiology team and CHF clinic. Patient notes that he has been taking his medications as directed, but reports he does not take his diuretic on days where he is required to go to appointments during the day because he does not want to need to urinate as much. As per outpatient notes it seems that he is very nonadherent to treatment recommendations and noncompliant with medications. Here Pro-BNP > 3000. BP is elevated at 180/110 and HR =110s at bedside. Allergies Allergy/AdvReac Type Severity Reaction Status Date / Time ceftriaxone Allergy Severe SHORTNESS Verified 12/08/18 14:48 OF BREATH lidocaine Allergy Severe SHORTNESS Verified 12/08/18 14:48 OF BREATH, diaphoretic, hives procaine Allergy Severe SHORTNESS Verified 12/08/18 14:48 OF BREATH, diaphoretic, hives amoxicillin Allergy Intermediate HIVES/FACIAL Verified 12/08/18 14:48 SWELLING lisinopril Allergy Intermediate HIVES Verified 12/08/18 14:48 albuterol Allergy Mild proair Verified 12/08/18 14:48 "trouble taking breaths" clavulanic acid Allergy Unknown . Verified 12/08/18 14:48 acetaminophen AdvReac Mild NAUSEA Verified 12/08/18 14:48 Home Medications Home Medications Medication Instructions Recorded Confirmed Type Entresto 1 tab PO BID #60 tab 08/19/18 12/08/18 Rx insulin lispro protamine-lispro 40 units SQ BID ml 08/28/18 12/08/18 History 100 unit/mL (50-50) subcutaneous pen esomeprazole magnesium 20 mg 20 mg PO BID cap 09/05/18 12/08/18 History capsule,delayed release ipratropium 20 mcg-albuterol 100 1 puff INHALATION Q6H PRN 09/05/18 12/08/18 History mcg/actuation mist for inhalation aspirin 81 mg tablet,delayed 81 mg PO QAM 09/17/18 12/08/18 History release cholecalciferol (vitamin D3) 1,000 2,000 units PO BID cap 09/17/18 12/08/18 History unit capsule cetirizine [Zyrtec] 10 mg PO QAM 10/25/18 12/08/18 History metoprolol succinate ER 200 mg 200 mg PO QAM tab 11/11/18 12/08/18 History tablet,extended release 24 hr dulaglutide 1.5 mg/0.5 mL 1.5 mg SQ WEEKLY ml 11/12/18 12/08/18 History subcutaneous pen injector hydralazine 100 mg tablet 100 mg PO BID #180 tab 11/14/18 12/08/18 Rx metolazone 5 mg tablet 5 mg PO BID PRN #12 tab 11/14/18 12/08/18 History torsemide 20 mg tablet 60 mg PO BID #60 tab 11/14/18 12/08/18 Rx Past Med/Surg History Social History Preferred Language: Macedonian Communication Ability: Effective Visual Impairment: No Limitations Equities Trader Required: No Beliefs That Will Affect Care: None marital status: Current Living Situation: Spouse current occupational status: unemployed Other Information That Helps Us Care for You: No Feels Safe at Home: Yes Safety Concerns: Feels Safe At This Time Smoking Status: Former smoker Tobacco Type: cigarettes ; Cigarettes Per Day: reports he quit smoking at 14 years old ; Second Hand Exposure: No ; Hx Alcohol Use: No Hx Substance Use: No Review of Systems Review of Systems: Constitutional: No fever, sweats or chills Eyes: No diplopia, no worsening or blurred vision ENT: + hard of hearing, recently was fitted for hearing aid, no trouble swallowing Respiratory: + cough, +sputum, + hemoptysis occasionally with dark red mucous, +dyspnea on minimal exertion Cardiovascular: No chest pain, tightness or palpitations Abdomen: No pain, +nausea, +vomiting with consumption of food, no diarrhea or constipation Musculoskeletal: No joint pain, calf pain, some LE swelling Neurologic: No weakness, numbness/tingling, or balance problems Psychiatric: + anxiety or depression on medication Skin: No rash or itch Physical Exam Physical Exam: General: awake, alert, no apparent distress, sitting off the side of the bed, morbidly obese Head: Normocephalic, atraumatic ENT: PERRL, EOMI, no pharyngeal exudate, mucous membranes moist Chest: Difficult to auscultate secondary to body habitus, barrel chested, on 2 L via NC , no adventitious breath sounds Cardiac: + Regular rate, + tachycardic with heart rate = 113 at bedside, no murmur, no JVD, normal peripheral pulses, good capillary refill Abdominal: +Obese, NABS x 4 quadrants, soft, +distended, nontender to palpation, no rebound, guarding or tenderness Extremities: Normal inspection, 1+ peripheral edema, no erythema, calfs nontender to palpation Psych: Normal mood and affect Neuro: AAO x 3, strength intact bilaterally and related 5/5, no motor deficits, speech is clear, no peripheral sensory deficits Results & Data Vital Signs (Past 12 Hours) Vital Signs Temp Pulse Pulse Resp BP BP Pulse Ox 12/08/18 15:45 95 H 20 95 12/08/18 15:33 106 H 17 92 12/08/18 15:31 106 H 25 H 190/140 H 96 12/08/18 15:30 112 H 17 188/131 H 96 12/08/18 15:15 107 H 27 H 96 12/08/18 15:00 105 H 32 H 188/128 H 95 12/08/18 14:52 99 H 25 H 195/131 H 94 12/08/18 14:49 98 H 34 H 188/136 H 94 12/08/18 14:48 108 H 20 188/136 H 93 12/08/18 14:45 108 H 25 H 94 12/08/18 14:39 111 H 107 H 23 205/136 H 205/136 H 93 12/08/18 14:32 112 H 30 H 191/141 H 97 12/08/18 14:30 108 H 28 H 191/141 H 94 12/08/18 14:15 110 H 23 92 12/08/18 14:00 113 H 30 H 92 12/08/18 13:45 107 H 15 94 12/08/18 13:30 115 H 20 96 12/08/18 13:26 112 H 27 H 201/140 H 93 12/08/18 13:24 111 H 31 H 94 12/08/18 13:21 112 H 22 210/158 H 94 12/08/18 13:16 37 C 113 H 113 H 18 201/140 H 201/140 H 96 Diagnostic Findings XR chest 1V portable CLINICAL HISTORY: Chest Pain dyspnea COMPARISON STUDY: 08/25/2018 FINDINGS: Prominent pulmonary vasculature. Cardiomegaly. Diaphragms are smooth. IMPRESSION: Findings of pulmonary edema/congestive heart failure. This appearance is perhaps slightly improved compared to the prior study. ECG Additional Comments: 08-DEC-2018 13:22:38 [facility]-EDSTAT ROUTINE RETRIEVAL Sinus tachycardia Possible Left atrial enlargement Incomplete left bundle block T wave abnormality, consider lateral ischemia Abnormal ECG When compared with ECG of 26-NOV-2018 09:28, Premature ventricular complexes are no longer Present QRS axis Shifted left 25mm/s 10mm/mV 150Hz 9.0.9 12SL 241 ROBERT: 16 Referred by: ED Unconfirmed Vent. rate [address] interval 154 ms QRS duration 106 ms QT/QTc 374/506 ms P-R-T axes 34 -26 102 Code Status & VTE Plan Code Status Full Code- discussed with pt Supervising Physician Co-Signing Physician Notes I have seen the patient with Yaneth York and agree with exam , assessment and plan. 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
[2018-12-08] MEDS ORDERED: GLUCAGON FOR INJ 1 MG VIAL SQ PRN (16:21)
[2018-12-08] MEDS ORDERED: ONDANSETRON INJ 2 MG/ML 2 ML VIAL IV PRN (16:21)
[2018-12-08] MEDS ORDERED: ACETAMINOPHEN 325 MG TAB PO PRN (16:21)
[2018-12-08] MEDS ORDERED: CARBOHYDRATES FOR HYPOGLYCEMIA PO PRN (16:21)
[2018-12-08] MEDS ORDERED: DEXTROSE 50% 50 ML SYRINGE IV PRN (16:21)
[2018-12-08] MEDS ORDERED: GLUCOSE 10 TABS/TUBE PO PRN (16:21)
[2018-12-08] MEDS ORDERED: GLUCOSE 40% GEL 15 GM TUBE PO PRN (16:21)
[2018-12-08] MEDS ORDERED: IPRATROPIUM BROMIDE/ALBUTEROL respimat INH INH PRN (16:25)
[2018-12-08] MEDS ORDERED: metOLazone 5 MG TABLET PO PRN (16:25)
[2018-12-08] MEDS ORDERED: NON-FORMULARY MEDICATION (Dulaglutide [Trulicity] 1.5 MG) SQ SCH (16:30)
[2018-12-08] MEDS ORDERED: PHARMACY GLYCEMIC MGMT CONSULT PRN (17:02)
--- NOTE | 2018-12-08 17:36 | Pharmacy Report ---
Glycemic Control Consultation - Date of Service December 08, 2018 - Scope Scope: Glycemic Pharmacist consulted for glycemic control and to write orders per [facility] inpatient glycemic control protocol - Objective Weight: 164 kg Accuchecks BSG (last 24hrs): 12/08/18 13:46 Glucose 174 H Laboratory Data (last 24hrs): 12/08/18 13:46 Potassium 4.0 Carbon Dioxide 24 Anion Gap 8.0 Creatinine 1.01 Est Cr Clr Drug Dosing 145.2 HbA1c: 7.6% on 08/17/18 - Recent Pertinent Medications Outpatient Anti-diabetic Regimen: * Trulicity 1.5mg SQ on Wednesdays * insulin lispro protamin-lispro [Humalog Mix 50-50 KwikPen] 40 units SQ BID - Assessment & Plan Assessment & Plan: ASSESSMENT: * 42yo T2DM male known to pharmacy from previous admissions/glycemic consults. most recently just last week 11/25. * Will continue with Sq basal bolus insulin regimen from previous admission. * Hold Truclicity (non-formulary) and hold premixed outpatient insulin * Pre-mixed insulin is difficult to titrate since it is already in a fixed distribution of basal:prandial insulin. Continuing pre-mixed insulin for admission typically lead to hypoglycemia d/t changing PO status but rapid acting insulin is unable to be held. * Previous A1c is outdated. Will re-order per protocol * Titrate based on BSG trends PLAN FOR INPATIENT GLYCEMIC CONTROL: * Holding outpatient diabetes medications * A1c w/ AM labs * Basal insulin * NPH 12 units SQ BID * Bolus insulin * NovoLog per scale ACHS or Q6hrs while NPO * Goal Range: Low 110 mg/dL - High 150 mg/dL * Correction Factor: 25 mg/dL/unit * Nutritional / Prandial insulin per carb ratio of 1 unit per 9 grams CHO consumed * Please note that the plan above was derived based on current level of insulin resistance and hospital stress. These recommendations are appropriate for inpatient admission only. Plan of care upon discharge will need to be reassessed to avoid potential outpatient hypo/hyperglycemia. Thank you.
--- NOTE | 2018-12-08 17:49 | Emergency Department Note ---
Entered by Tiffani Villasenor acting as a scribe for Onofre Almaraz History of Present Illness General Chief complaint: Shortness of Breath/Dyspnea Stated complaint: Shortness of breath Time Seen by Provider: 12/08/18 14:01 Source: patient History of Present Illness Onset (ago): hour(s) (prior to arrival) Location: mouth (shortness of breath) Pain Consistency: + other (worsening) Maximum Pain Intensity: 10 Relieved By: + none Associated symptoms: + cough (blood) and + shortness of breath The patient is a 42 year old M who presents to the Emergency Room with complaints of worsening shortness of breath that started prior to arrival. The patient notes that he is currently coughing up blood. He adds that he was in the ED on November 26 for similar symptoms. He notes that he left the ED after getting admitted the last time. He states that "I stay in the hospital today because his wants him to stay." Home Medications Home Medications Medication Instructions Recorded Confirmed Type Entresto 1 tab PO BID #60 tab 08/19/18 12/08/18 Rx insulin lispro protamine-lispro 40 units SQ BID ml 08/28/18 12/08/18 History 100 unit/mL (50-50) subcutaneous pen esomeprazole magnesium 20 mg 20 mg PO BID cap 09/05/18 12/08/18 History capsule,delayed release ipratropium 20 mcg-albuterol 100 1 puff INHALATION Q6H PRN 09/05/18 12/08/18 History mcg/actuation mist for inhalation aspirin 81 mg tablet,delayed 81 mg PO QAM 09/17/18 12/08/18 History release cholecalciferol (vitamin D3) 1,000 2,000 units PO BID cap 09/17/18 12/08/18 History unit capsule cetirizine [Zyrtec] 10 mg PO QAM 10/25/18 12/08/18 History metoprolol succinate ER 200 mg 200 mg PO QAM tab 11/11/18 12/08/18 History tablet,extended release 24 hr dulaglutide 1.5 mg/0.5 mL 1.5 mg SQ WEEKLY ml 11/12/18 12/08/18 History subcutaneous pen injector hydralazine 100 mg tablet 100 mg PO BID #180 tab 11/14/18 12/08/18 Rx metolazone 5 mg tablet 5 mg PO BID PRN #12 tab 11/14/18 12/08/18 History torsemide 20 mg tablet 60 mg PO BID #60 tab 11/14/18 12/08/18 Rx Allergies Allergy/AdvReac Type Severity Reaction Status Date / Time ceftriaxone Allergy Severe SHORTNESS Verified 12/08/18 14:48 OF BREATH lidocaine Allergy Severe SHORTNESS Verified 12/08/18 14:48 OF BREATH, diaphoretic, hives procaine Allergy Severe SHORTNESS Verified 12/08/18 14:48 OF BREATH, diaphoretic, hives amoxicillin Allergy Intermediate HIVES/FACIAL Verified 12/08/18 14:48 SWELLING lisinopril Allergy Intermediate HIVES Verified 12/08/18 14:48 albuterol Allergy Mild proair Verified 12/08/18 14:48 "trouble taking breaths" clavulanic acid Allergy Unknown . Verified 12/08/18 14:48 acetaminophen AdvReac Mild NAUSEA Verified 12/08/18 14:48 Past Med/Surg History Social History Preferred Language: Korean Communication Ability: Effective Visual Impairment: No Limitations Setup Operator Required: No Beliefs That Will Affect Care: None marital status: Current Living Situation: Spouse current occupational status: unemployed Other Information That Helps Us Care for You: No Feels Safe at Home: Yes Safety Concerns: Feels Safe At This Time Smoking Status: Former smoker Tobacco Type: cigarettes ; Cigarettes Per Day: reports he quit smoking at 14 years old ; Second Hand Exposure: No ; Hx Alcohol Use: No Hx Substance Use: No Review of Systems See HPI for pertinent positives & negatives. and A total of 10 systems reviewed and were otherwise negative Physical Exam Vital Signs Vital Signs - 24 hr 12/08/18 13:16 12/08/18 13:21 12/08/18 13:24 Temperature 37 C Temperature Source Oral Sepsis Recent Fever Within 48 Hours No Sepsis New/Unexplained Change in Mental Status No Sepsis Action Taken by Nursing No Action Required Oxygen Flow Rate - Titration Pulse Oximetry Post Tiitration Pulse Rate 113 H 112 H 111 H Pulse Rate [Apical] 113 H Pulse Rate from SpO2 Sensor 56 L 59 L Pulse Rhythm Regular Pulse Rhythm [Apical] Regular Pulse Strength Normal Pulse Strength [Apical] Normal Respiratory Rate 18 22 31 H Respiratory Effort / Characteristics Short of Breath Respiratory Depth Normal Respiratory Pattern Regular Blood Pressure 201/140 H 210/158 H Blood Pressure [Right Arm] 201/140 H Blood Pressure Mean 160 175 Blood Pressure Mean [Right Arm] 160 Blood Pressure Position Sitting Blood Pressure Position [Right Arm] Sitting Pulse Oximetry 96 94 94 Oxygen Delivery Method Room Air Oxygen Flow Rate 0 12/08/18 13:26 12/08/18 13:30 12/08/18 13:45 Temperature Temperature Source Sepsis Recent Fever Within 48 Hours Sepsis New/Unexplained Change in Mental Status Sepsis Action Taken by Nursing Oxygen Flow Rate - Titration Pulse Oximetry Post Tiitration Pulse Rate 112 H 115 H 107 H Pulse Rate [Apical] Pulse Rate from SpO2 Sensor 113 H 116 H 106 H Pulse Rhythm Pulse Rhythm [Apical] Pulse Strength Pulse Strength [Apical] Respiratory Rate 27 H 20 15 Respiratory Effort / Characteristics Respiratory Depth Respiratory Pattern Blood Pressure 201/140 H Blood Pressure [Right Arm] Blood Pressure Mean 160 Blood Pressure Mean [Right Arm] Blood Pressure Position Blood Pressure Position [Right Arm] Pulse Oximetry 93 96 94 Oxygen Delivery Method Oxygen Flow Rate 12/08/18 14:00 12/08/18 14:15 12/08/18 14:30 Temperature Temperature Source Sepsis Recent Fever Within 48 Hours Sepsis New/Unexplained Change in Mental Status Sepsis Action Taken by Nursing Oxygen Flow Rate - Titration 2 Pulse Oximetry Post Tiitration 93 Pulse Rate 113 H 110 H 108 H Pulse Rate [Apical] Pulse Rate from SpO2 Sensor 113 H 108 H 100 H Pulse Rhythm Pulse Rhythm [Apical] Pulse Strength Pulse Strength [Apical] Respiratory Rate 30 H 23 28 H Respiratory Effort / Characteristics Respiratory Depth Respiratory Pattern Blood Pressure 191/141 H Blood Pressure [Right Arm] Blood Pressure Mean 157 Blood Pressure Mean [Right Arm] Blood Pressure Position Blood Pressure Position [Right Arm] Pulse Oximetry 92 92 94 Oxygen Delivery Method Room Air Oxygen Flow Rate 0 12/08/18 14:32 12/08/18 14:39 12/08/18 14:45 Temperature Temperature Source Sepsis Recent Fever Within 48 Hours Sepsis New/Unexplained Change in Mental Status Sepsis Action Taken by Nursing Oxygen Flow Rate - Titration Pulse Oximetry Post Tiitration Pulse Rate 111 H 108 H Pulse Rate [Apical] 112 H 107 H Pulse Rate from SpO2 Sensor 110 H 108 H Pulse Rhythm Pulse Rhythm [Apical] Pulse Strength Pulse Strength [Apical] Respiratory Rate 30 H 23 25 H Respiratory Effort / Characteristics Respiratory Depth Respiratory Pattern Blood Pressure 205/136 H Blood Pressure [Right Arm] 191/141 H 205/136 H Blood Pressure Mean 159 Blood Pressure Mean [Right Arm] 157 159 Blood Pressure Position Blood Pressure Position [Right Arm] Pulse Oximetry 97 93 94 Oxygen Delivery Method Room Air Room Air Oxygen Flow Rate 12/08/18 14:48 12/08/18 14:49 12/08/18 14:52 Temperature Temperature Source Sepsis Recent Fever Within 48 Hours Sepsis New/Unexplained Change in Mental Status Sepsis Action Taken by Nursing Oxygen Flow Rate - Titration Pulse Oximetry Post Tiitration Pulse Rate 98 H 99 H Pulse Rate [Apical] 108 H Pulse Rate from SpO2 Sensor 101 H 98 H Pulse Rhythm Pulse Rhythm [Apical] Pulse Strength Pulse Strength [Apical] Respiratory Rate 20 34 H 25 H Respiratory Effort / Characteristics Respiratory Depth Respiratory Pattern Blood Pressure 188/136 H 195/131 H Blood Pressure [Right Arm] 188/136 H Blood Pressure Mean 153 152 Blood Pressure Mean [Right Arm] 153 Blood Pressure Position Blood Pressure Position [Right Arm] Pulse Oximetry 93 94 94 Oxygen Delivery Method Room Air Oxygen Flow Rate 12/08/18 15:00 12/08/18 15:15 12/08/18 15:30 Temperature Temperature Source Sepsis Recent Fever Within 48 Hours Sepsis New/Unexplained Change in Mental Status Sepsis Action Taken by Nursing Oxygen Flow Rate - Titration Pulse Oximetry Post Tiitration Pulse Rate 105 H 107 H 112 H Pulse Rate [Apical] Pulse Rate from SpO2 Sensor 106 H 103 H 112 H Pulse Rhythm Pulse Rhythm [Apical] Pulse Strength Pulse Strength [Apical] Respiratory Rate 32 H 27 H 17 Respiratory Effort / Characteristics Respiratory Depth Respiratory Pattern Blood Pressure 188/128 H 188/131 H Blood Pressure [Right Arm] Blood Pressure Mean 148 150 Blood Pressure Mean [Right Arm] Blood Pressure Position Blood Pressure Position [Right Arm] Pulse Oximetry 95 96 96 Oxygen Delivery Method Oxygen Flow Rate 12/08/18 15:31 12/08/18 15:33 12/08/18 15:45 Temperature Temperature Source Sepsis Recent Fever Within 48 Hours Sepsis New/Unexplained Change in Mental Status Sepsis Action Taken by Nursing Oxygen Flow Rate - Titration Pulse Oximetry Post Tiitration Pulse Rate 106 H 106 H 95 H Pulse Rate [Apical] Pulse Rate from SpO2 Sensor 105 H 100 H 98 H Pulse Rhythm Pulse Rhythm [Apical] Pulse Strength Pulse Strength [Apical] Respiratory Rate 25 H 17 20 Respiratory Effort / Characteristics Respiratory Depth Respiratory Pattern Blood Pressure 190/140 H Blood Pressure [Right Arm] Blood Pressure Mean 156 Blood Pressure Mean [Right Arm] Blood Pressure Position Blood Pressure Position [Right Arm] Pulse Oximetry 96 92 95 Oxygen Delivery Method Oxygen Flow Rate 12/08/18 15:54 12/08/18 16:00 12/08/18 16:15 Temperature Temperature Source Sepsis Recent Fever Within 48 Hours Sepsis New/Unexplained Change in Mental Status Sepsis Action Taken by Nursing Oxygen Flow Rate - Titration Pulse Oximetry Post Tiitration Pulse Rate 107 H 106 H 104 H Pulse Rate [Apical] Pulse Rate from SpO2 Sensor 108 H 108 H 104 H Pulse Rhythm Pulse Rhythm [Apical] Pulse Strength Pulse Strength [Apical] Respiratory Rate 20 22 17 Respiratory Effort / Characteristics Respiratory Depth Respiratory Pattern Blood Pressure 188/133 H 177/133 H Blood Pressure [Right Arm] Blood Pressure Mean 151 147 Blood Pressure Mean [Right Arm] Blood Pressure Position Blood Pressure Position [Right Arm] Pulse Oximetry 95 96 94 Oxygen Delivery Method Oxygen Flow Rate GENERAL: He is oriented to person, place, and time. He appears well-developed and well-nourished. He does not appear distressed. HENT: Exam performed. - Head: Normocephalic and atraumatic. - Right Ear: External ear normal. No mastoid tenderness. - Left Ear: External ear normal. No mastoid tenderness. - Mouth/Throat: The oropharynx is clear and moist. No trismus in the jaw. No dental abscesses or uvula swelling. No oropharyngeal exudate or tonsillar abscesses. EYES: Conjunctivae and EOM are normal. Pupils are equal, round, and reactive to light. Right eye exhibits no discharge. Left eye exhibits no discharge. No scleral icterus. NECK: Normal range of motion. Neck supple. No JVD present. No spinous process tenderness present. No carotid bruit present. No rigidity. No tracheal deviation and normal range of motion present. No Brudzinski's sign and no Kernig's sign noted. CV: Normal rate, regular rhythm, normal heart sounds and intact distal pulses. There is no peripheral edema. Palpable radial pulses bue. PULM/CHEST: Effort normal. No respiratory distress. No stridor. He has no wheezes. He has rales bilaterally. - Chest Wall: He exhibits no tenderness. ABD: The abdomen is soft obese. Bowel sounds are normal. He has no distension. No mass is present. There is no tenderness. There is no rebound, no guarding, no Banks's sign and no tenderness at McBurney's point. Rovsig negative. MUSC/SKEL: Normal range of motion. There is no peripheral edema, tenderness or deformity. LYMPH: No cervical adenopathy. NEURO: He is alert and oriented to person, place, and time. He has normal strength. No cranial nerve deficit or sensory deficit. Coordination and gait normal. GCS eye subscore is 4. GCS verbal subscore is 5. GCS motor subscore is 6. Cerebellar tests wnl. SKIN: Skin is warm and dry. He is not diaphoretic. PSYCH: He has a normal mood and affect. Behavior is normal. Judgment and thought content normal. Course 1407: The patient was evaluated in room C4. A complete history and physical exam was performed. Patient was found to be hypoxic on room air. He was put on 2 L supplemental nasal cannula. A review of the patients records show that the patient was seen in the ED on November 26 and was told that he was going to be admitted to the hospital for CHF exacerbation. The records show that the patient was seen by the admitting team and left against the advice of the admitting team and the ER team. 1542: The patient's vital signs have improved on nasal cannula s/p receiving sublingual nitroglycerin and Lasix. The patient's labs show pro BNP. The patient's chest x-ray shows cardiomegaly and fluid overload. The patient was agreeable to stay under Dr. Lee's care. 1546: I reviewed the patient's case with Dr. Lee, [facility] Hospitalist. She will evaluate the patient for further management. Administered Medications Nitroglycerin (Nitrostat) 0.4 mg SL UD PRN PRN Reason: Chest Pain Stop: 01/07/19 14:05 Last Admin: 12/08/18 14:41 Dose: 0.4 mg Documented by: [id number] Admin: 12/08/18 14:30 Dose: 0.4 mg Documented by: [id number] Discontinued Medications Aspirin (Aspirin) 324 mg PO NOW STA Stop: 12/08/18 14:07 Last Admin: 12/08/18 14:30 Dose: 324 mg Documented by: [id number] Furosemide (Lasix) 40 mg IV NOW STA Stop: 12/08/18 15:47 Last Admin: 12/08/18 15:52 Dose: 40 mg Documented by: [id number] Medical Decision Making Medical Records Attestation: I reviewed the patient's medical records. Home Medications Current Medication List: was personally reviewed by me Laboratory Data Attestation: I reviewed the patient's lab results. Result diagrams: 12/08/18 13:46 12/08/18 13:46 Lab Results 12/08/18 12/08/18 12/08/18 Range/Units 13:46 13:46 13:46 WBC 9.44 (4.8-10.8) K/uL RBC 4.79 (4.7-6.1) M/uL Hgb 14.0 (14.0-18.0) g/dL Hct 40.0 L (42-52) % MCV 83.5 (80-100) fL MCH 29.2 (25-34) pg MCHC 35.0 (32-36) g/dL RDW Std Deviation 44.8 (36.4-46.3) fL RDW Coeff of Zoltan 14.7 H (11.5-14.5) % Plt Count 195 (130-400) K/uL MPV 9.8 (7.4-10.4) fL Immature Gran % (Auto) 0.4 % Neut % (Auto) 69.7 % Lymph % (Auto) 22.2 % [place] % (Auto) 7.1 % Eos % (Auto) 0.5 % Baso % (Auto) 0.1 % Immature Gran # (Auto) 0.04 H (0.00-0.02) K/uL Neut # (Auto) 6.57 H (1.4-6.5) K/uL Lymph # (Auto) 2.10 (1.2-3.4) K/uL [place] # (Auto) 0.67 H (0.11-0.59) K/uL Eos # (Auto) 0.05 (0-0.5) K/uL Baso # (Auto) 0.01 (0-0.2) K/uL PT 10.8 (9.0-12.0) Seconds INR 1.1 (0.9-1.1) APTT 27.5 (21.0-31.0) Seconds PTT Ratio 1.0 Sodium 140 (136-145) mmol/L Potassium 4.0 (3.5-5.1) mmol/L Chloride 108 H (98-107) mmol/L Carbon Dioxide 24 (21-32) mmol/L Anion Gap 8.0 (3-11) BUN 15 (7-18) mg/dl Creatinine 1.01 (0.6-1.4) mg/dl Est Cr Clr Drug Dosing 145.2 ml/min Est GFR ( Amer) 106.6 Est GFR (Non-Af Amer) 92.0 BUN/Creatinine Ratio 14.9 (10-20) Glucose 174 H (70-99) mg/dl Calcium 8.4 L (8.5-10.1) mg/dl Troponin I 0.030 (0-0.045) ng/ml NT-Pro-B Natriuret Pep 3032 H (0-450) pg/ml Lipase 126 (73-393) U/L Specimen Hemolysis Imaging Data Radiologist's Impression: Radiology results as stated below per my review and the radiologist's interpretation: XR chest 1V portable CLINICAL HISTORY: Chest Pain dyspnea COMPARISON STUDY: 08/25/2018 FINDINGS: Prominent pulmonary vasculature. Cardiomegaly. Diaphragms are smooth. IMPRESSION: Findings of pulmonary edema/congestive heart failure. This appe arance is perhaps slightly improved compared to the prior study. The above report was generated using voice recognition software. It may contain grammatical, syntax or spelling errors. Electronically signed by: Cleveland Concepcion M.D. 12/08/2018 2:19 PM ECG Data Attestation: I personally reviewed and interpreted this ECG as follows: Indication: SOB/dyspnea Rate (beats per minute): 110 Rhythm: sinus rhythm Findings: + other (IN, QRS, and QTc intervals within normal limits, peaked T- waves in leads V3, V4, and V5); no ST depression and no ST elevation Blood Pressure Blood Pressure Findings: Elevated blood pressure Blood Pressure Disposition: further management by hospitalist BEENA Narrative 1407: The patient was evaluated in room C4. A complete history and physical exam was performed. Patient was found to be hypoxic on room air. He was put on 2 L supplemental nasal cannula. A review of the patients records show that the patient was seen in the ED on November 26 and was told that he was going to be admitted to the hospital for CHF exacerbation. The records show that the patient was seen by the admitting team and left against the advice of the admitting team and the ER team. 1542: The patient's vital signs have improved on nasal cannula s/p receiving sublingual nitroglycerin and Lasix. The patient's labs show pro BNP. The patient's chest x-ray shows cardiomegaly and fluid overload. The patient was agreeable to stay under Dr. Lee's care. 1546: I reviewed the patient's case with Dr. Lee, [facility] Hospitalist. She will evaluate the patient for further management. Impression & Plan Hypoxia, CHF exacerbation Critical Care Time Critical Care Time: Yes Total Critical Care Time: 42 I have personally spent 42 minutes of critical care time in the direct management of this patient. This includes bedside care, interpretation of diagnostic studies, and testing, discussion with consultants, patient, and family members, and other required patient management activities. This 42 minutes is in excess of all separately billable procedures. Discharge Plan Visit Data Chief Complaint: Shortness of Breath/Dyspnea Stated Complaint: Shortness of breath ED Provider: Onofre Almaraz Discharge Problem: Hypoxia, CHF exacerbation Patient Disposition: Admitted As Inpatient Discharge Instructions Interventions: ED Discharge Assessment Last Done: 12/08/18 17:37 Discharge Problem: CHF exacerbation Qualifiers: Heart failure type: unspecified Qualified Code(s): I50.9 - Heart failure, unspecified The scribe's documentation has been prepared under my direction and personally reviewed by me in its entirety. I confirm that the note above accurately re flects all work, treatment, procedures, and medical decision making performed by me.
--- NOTE | 2018-12-08 18:18 | CT Scan Report ---
CT angio chest PE protocol CT DOSE: 914.53 mGy.cm HISTORY: Chest pain. Dyspnea. PE TECHNIQUE: Multiaxial CT images of the chest were performed following the intravenous administration of contrast to evaluate the pulmonary arteries. Maximal intensity projection images were also obtaine d. A dose lowering technique was utilized adhering to the principles of ALARA. COMPARISON STUDY: 10/25/2018 FINDINGS: Compromised study due to large patient body habitus. Within these limitations no evidence for major central embolus. The peripheral vasculature is poorly identified. Considerable cardiomegaly. Prominent pulmonary vasculature. No well-defined focal infiltrative change of the current time. IMPRESSION: 1. Limited study due to body habitus considerations. 2. No evidence for major or central embolus. 3. Cardiomegaly with findings suggesting a component of congestive heart failure. The above report was generated using voice recognition software. It may contain grammatical, syntax or spelling errors. Electronically signed by: Cleveland Concepcion M.D. 12/08/2018 6:17 PM
[2018-12-08] MEDS ORDERED: FUROSEMIDE 40 MG in SYRINGE 0 ML IV ONE (18:30)
[2018-12-08] MEDS: INSULIN ASPART 100 UNITS/ML 3 ML PEN SC SCH ×2 (19:10→21:45)
[2018-12-08] MEDS: INSULIN HUMAN NPH SC SCH (19:29)
[2018-12-08] MEDS: PANTOprazole 40 MG TAB PO SCH (19:31)
[2018-12-08] MEDS: HydrALAZINE TAB 50 MG TAB PO SCH (19:31)
[2018-12-08] MEDS: SACUBITRIL-VALSARTAN 49/51 MG TAB PO SCH (19:31)
[2018-12-08] MEDS: CHOLECALCIFEROL 1,000 UNITS TAB PO SCH (19:32)
[2018-12-08] MEDS ORDERED: METOPROLOL TARTRATE 1 MG/ML VIAL IV STA (20:19)
[2018-12-08] MEDS ORDERED: INSULIN LISPRO PROTAMIN LISPRO SQ SCH (21:00)
[2018-12-09 07:03] LABS: Hematocrit (blood only) 44.5 % (42-52); Hemoglobin 15.1 g/dL (14.0-18.0); Mean Corpuscular Hemoglobin 28.9 pg (25-34); Mean Corpuscular Hgb Conc 33.9 g/dL (32-36); Mean Corpuscular Volume 85.1 fL (80-100); Platelet Count 183 K/uL (130-400); RDW Coefficient of Variation 14.7 % (11.5-14.5); RDW Standard Deviation 45.2 fL (36.4-46.3); Red Blood Count 5.23 M/uL (4.7-6.1); White Blood Count 9.52 K/uL (4.8-10.8)
[2018-12-09 07:45] LABS: Albumin Globulin Ratio 0.8 (0.9-2); Albumin Level 3.3 gm/dl (3.4-5.0); BUN Creatinine Ratio 12.2 (10-20); Calcium 8.4 mg/dl (8.5-10.1); Creatinine Clr Calc Pharmacy 138.2 ml/min; Est GFR (African American) 102.9; Est GFR (Non-African American) 88.8; Globulin 3.9 gm/dl (2.5-4.0); Potassium 3.1 mmol/L (3.5-5.1); Total Protein 7.2 gm/dl (6.4-8.2)
[2018-12-09 08:07] LABS: Estimated Average Glucose 174 mg/dl; Hemoglobin A1C 7.7 % (4.5-5.6)
[2018-12-09] MEDS: HydrALAZINE TAB 50 MG TAB PO SCH ×2 (08:22→20:03)
[2018-12-09] MEDS: ASPIRIN 81 MG ECTAB PO SCH (08:23)
[2018-12-09] MEDS: SACUBITRIL-VALSARTAN 49/51 MG TAB PO SCH ×2 (08:23→20:03)
[2018-12-09] MEDS: CETIRIZINE HCL 10 MG TABLET PO SCH (08:23)
[2018-12-09] MEDS: METOPROLOL SUCC 50MG EXT REL TAB PO SCH (08:23)
[2018-12-09] MEDS: PANTOprazole 40 MG TAB PO SCH ×2 (08:24→20:05)
[2018-12-09] MEDS: CHOLECALCIFEROL 1,000 UNITS TAB PO SCH ×2 (08:24→20:05)
[2018-12-09] MEDS: INSULIN ASPART 100 UNITS/ML 3 ML PEN SC SCH ×4 (08:30→20:51)
[2018-12-09] MEDS: INSULIN HUMAN NPH SC SCH ×2 (08:31→16:55)
[2018-12-09] MEDS ORDERED: POTASSIUM CHLORIDE 20 MEQ TABCR PO STA (08:51)
--- NOTE | 2018-12-09 08:51 | Hospitalist Progress Note ---
Date of Service December 09, 2018 Assessment & Plan (1) Acute on chronic systolic (congestive) heart failure: Continue admit to tele for observation Pt left AMA on 11/26/18 when he was previously admitted for CHF exacerbation. Given lasix 40 mg IV in the ER, will add another 40 mg IV dose tonight, monitor strict I's and O's, then continue with Lasix 80 mg IV BID dosing, holding torsemide Free water restriction to 1000 ml per day. Strict I/O Daily weight, Low sodium diet. Follows with Mariah Mazariegos PA-C with CHF clinic as an outpatient, he has switched to [facility] cardiology, seeing them outpatient last week, he is agreeable to seeing our team in the hospital currently, will need to readdress this hospitalization and see which team he chooses to follow with. Continue Entresto, hydralazine 100 mg BID, metolazone 5 my BID, metoprolol succinate 200 mg QAM Pro-BNP = 3032 upon admission, negative troponin 0.030, trend x 1 more set EKG reviewed Appreciate cardiology recs: Acute on chronic combined systolic and diastolic CHF (congestive heart failure): Nonischemic cardiomyopathy: Add spironolactone.He currently weights 158.8 kg (349 lbs) per chart, and his prior goal dry weight was 340 lbs. (2) Nonischemic cardiomyopathy: Most recent 2D echo with LVEF = 50-55% in Oct 2018 Continue medications as above Likely secondary to hypertension (3) Hypoxia: Likely due to CHF exacerbation as above Check CTPE to r/o thromboembolic disease Unsure as to why the patient no longer has CPAP/BiPAP as he requires this for MARIELENA, recommend follow-up with Olga Banuelos with pulmonology as outpatient, will order bipap now Continue supplemental O2 prn, typically does no require this as outpatient (4) Hemoptysis: Ongoing as per pt report, has cough with small amount of pink sputum. No blood seen in it. He previously had bronchoscopy for this which was completed by Dr. Murray in May 2018, no obvious etiology was found, it was thought that this was a result of malignant hypertension and CHF and was suggested that he could be compliant with BiPAP therapy. Placed pulmonary consult (5) Hypertension: -Continue antihypertensive regimen as above -IV labetalol as needed SBP >160 or DBP >110 (6) Dyslipidemia: -not on statin, last lipid panel in Spring 2018 showed total cholesterol of 171. Diet and exercise encouraged as above (7) Diabetes mellitus, type II: A1C = 7.4 on 10/31/18, no need to recheck ISS with accuchecks [facility] Glycemic pharmacy consulted HH/DM Diet ordered (8) Peripheral neuropathy: Secondary to DM type II (9) Obstructive sleep apnea: order BiCPAP at bedtime , noncompliance/not wearing this likely contributing to hypoxia (10) Obesity hypoventilation syndrome: (11) COPD (chronic obstructive pulmonary disease): Continue ipratropium inhaler as needed, Order BiPAP at bedtime Supplemental O2 Follows with Olga Banuelos as outpatient, will need f/u upon discharge (12) Morbid obesity: BMI equals 55 Discussion was held regarding eating whole and unprocessed food, no sugar, no extra carbs, no soda etc at bedside. Exercise was encouraged however that is very difficult for the patient given his current respiratory status. Continue to encourage upon discharge. HH/DM diet (13) GERD (gastroesophageal reflux disease): Stable, patient avoids acidic foods which seems to help (14) Vitamin D insufficiency: Continue supplementation (15) Depression with anxiety: Patient uses coping mechanisms, is not on any medication (16) DVT prophylaxis: SCDs,Discussed with Dr. Houston who did bronchoscopy on the pt 05/31 and he recommended to start Lovenox for DVT ppx. Code: Full code Dispo: From home, likely to remain in the hospital at least 1 night Subjective Patient seen and examined at the bedside. He reports having good diuresis with total output of 7430 mils. Patient reports that his shortness of breath is improved. Patient continues to report a cough associated with pinkish sputum. In May 2018 patient had bronchoscopy by and no specimen was obtained because Dr. Daniel Fuentes did not find anything appropriate to biopsy. recommended to follow-up with Dr. Hernandez pulmonary who also saw the patient. Patient denies fever, chills, headache, chest pain, shortness of breath, frequency, urgency, melena, hematuria. Patient is afebrile. Review of Systems Review of Systems: All systems reviewed & are unremarkable except as noted in HPI & below Physical Exam Constitutional: WD/WN, vitals as above well developed and + morbidly obese Eyes: PERRL, conjunctivae normal, anicteric sclerae ENMT: external ear and nose normal, oropharynx normal Neck: trachea midline, no thyromegaly Respiratory: Auscultation: + crackles and + wheezes Cardiovascular: Vessels: dorsalis pedis pulses present Extremities: + pedal edema and + edema Gastrointestinal (Abdomen): normal bowel sounds, soft, nontender, no hepatosplenomegaly Musculoskeletal: no cyanosis or clubbing, extremities motor strength 5/5 Skin: no rashes, warm and dry Neurologic: patellar DTR's 2+ bilat, sensation intact Psychiatric: A+Ox3, euthymic affect Lymphatic: no cervical or axillary lymphadenopathy Results & Data Vital Signs (Past 12 Hours) Vital Signs Temp Pulse Resp BP Pulse Ox 12/09/18 07:19 36.4 C L 77 19 163/116 H 95 12/09/18 02:59 36.5 C 91 H 19 150/90 H 97 12/08/18 23:45 36.4 C L 93 H 19 172/120 H 96 12/08/18 21:16 163/103 H PG Care Time/CCT Total # of Minutes Spent Total Time Spent with Patient: Total time spent is greater than 50% in coordination of care (as documented) at patient's floor/unit and/or counseling patient: (1) Diabetes mellitus, type II Diabetes mellitus complication status: with other specified complication Diabetes mellitus mcc insulin use: with mcc use Qualified Code(s): E11.69 - Type 2 diabetes mellitus with other specified complication; Z79.4 - half-way (current) use of insulin (2) COPD (chronic obstructive pulmonary disease) COPD type: unspecified COPD Qualified Code(s): J44.9 - Chronic obstructive pulmonary disease, unspecified (3) GERD (gastroesophageal reflux disease) Esophagitis presence: without esophagitis Qualified Code(s): K21.9 - Gastro- esophageal reflux disease without esophagitis (4) Hypertension Hypertension type: unspecified Qualified Code(s): I10 - Essential (primary) hypertension
[2018-12-09] MEDS ORDERED: FUROSEMIDE 80 MG in SYRINGE 0 ML IV SCH (09:00)
--- NOTE | 2018-12-09 09:04 | Pharmacy Report ---
Pharmacy Glycemic Short Note 2 - Date of Service December 09, 2018 - Glycemic Short BSG Results (Last 24 hours): 12/08/18 12/08/18 12/08/18 13:46 18:16 20:14 Glucose 174 H POC Glucose 114 H 138 H 12/09/18 12/09/18 06:42 07:20 Glucose 129 H POC Glucose 137 H Outpatient Anti-diabetic Regimen: * Trulicity 1.5mg SQ on Wednesdays * Insulin lispro protamin-lispro [Humalog Mix 50-50 KwikPen] 40 units SQ BID * HbA1c 7.7% on 12/09/18 ASSESSMENT: * 42 yo M with T2DM known to pharmacy from previous admissions/glycemic consults. Patient followed during recent admission earlier this month where he left AMA * Minimal stressors for insulin resistance noted * BSG's have ranged 114-138 mg/dL since insulin initiated - no change for now, but will add scale for NPH PLAN FOR INPATIENT GLYCEMIC CONTROL: * Hold outpatient diabetes medications * Basal insulin: NPH BIDM based on BSG * 8 units for BSG less than 110 mg/dL * 12 units for BSG 110 mg/dL or greater * Bolus insulin * NovoLog per scale ACHS or Q6hrs while NPO * Goal Range: Low 110 mg/dL - High 150 mg/dL * Correction Factor: 25 mg/dL/unit * Nutritional / Prandial insulin per carb ratio of 1 unit per 9 grams CHO consumed
[2018-12-09] MEDS: FUROSEMIDE 80 MG in SYRINGE 0 ML IV SCH ×2 (10:22→20:02)
[2018-12-09] MEDS ORDERED: HydrALAZINE HCL 20 MG/ML VIAL ONE (11:21)
[2018-12-09] MEDS ORDERED: HydrALAZINE 10 MG TAB PO PRN (11:58)
--- NOTE | 2018-12-09 15:28 | Cardiology Consultation ---
Date of Consultation December 09, 2018 Assessment & Plan (1) Acute on chronic combined systolic and diastolic CHF (congestive heart failure): (2) Nonischemic cardiomyopathy: Agree with current dose of IV furosemide 80 mg 2 times per day. Potassium level was 3.1 this morning, and the patient received 40 mEq of oral potassium replacement this am and is due for another dose at 2100. Continue prior to admission dose of Entresto and Metoprolol succinate. Continue SAFETY AIDE oral hydralazine. Add spironolactone. he currently weights 158.8 kg (349 lbs) per chart, and his prior goal dry weight was 340 lbs. No need to repeat echocardiogram at present since he had study last month. Patient is concerned he is spitting up or coughing up blood. This appears to be mild. Review of his chart reveals that he had seen both thoracic surgery and pulmonary medicine for this complaint back in May. We are holding off on pharmacologic DVT prophylaxis now pending assessment of this. History of Present Illness Attending Physician: Anu Lee MD History of Present Illness Alok Huff is a 42 year old male seen in cardiology consultation for volume overload, acute on chronic mixed systolic / diastolic heart failure. The patient has a long-standing history of nonischemic cardiomyopathy with ejection fraction as low as 25% in the past. He had a remote cardiac cat heterization performed in [place] that reportedly revealed normal coronary arteries. He has followed with [facility] cardiology and heart failure clinic very closely recently. Last month he was admitted to [facility] with volume overload having been at [facility] at the time of presentation. He was apparently diuresed, but has gained significant weight, a 30 pound water weight loss noted at the time his hospitalization at that time, has reaccumulated. He had seen Dr Hernandez of our practice as a new opinion last week and in the meantime presented back to the hospital. Echocardiogram performed 11/03/2018 at [facility] revealed moderate left ventricular chamber enlargement with recorded left ventricular end-diastolic dimension of 6.2 cm, abnormal septal motion with normal wall motion otherwise, LVEF was in the lower limit of normal, 50-54%. The left atrium was moderately enlarged. The aortic root and proximal ascending aorta are noted to be mildly enlarged with measurements of 3.9 cm respectively. EKG performed on 12/08/2018 at 1322 revealed sinus tachycardia 110 bpm, lateral repolarization changes noted with T wave flattening in lead I and T wave inversion in lead aVL unchanged compared to 11/06/2018. Allergies Allergy/AdvReac Type Severity Reaction Status Date / Time ceftriaxone Allergy Severe SHORTNESS Verified 12/08/18 14:48 OF BREATH lidocaine Allergy Severe SHORTNESS Verified 12/08/18 14:48 OF BREATH, diaphoretic, hives procaine Allergy Severe SHORTNESS Verified 12/08/18 14:48 OF BREATH, diaphoretic, hives amoxicillin Allergy Intermediate HIVES/FACIAL Verified 12/08/18 14:48 SWELLING lisinopril Allergy Intermediate HIVES Verified 12/08/18 14:48 albuterol Allergy Mild proair Verified 12/08/18 14:48 "trouble taking breaths" clavulanic acid Allergy Unknown . Verified 12/08/18 14:48 acetaminophen AdvReac Mild NAUSEA Verified 12/08/18 14:48 Home Medications Home Medications Medication Instructions Recorded Confirmed Type Entresto 1 tab PO BID #60 tab 08/19/18 12/08/18 Rx insulin lispro protamine-lispro 40 units SQ BID ml 08/28/18 12/08/18 History 100 unit/mL (50-50) subcutaneous pen esomeprazole magnesium 20 mg 20 mg PO BID cap 09/05/18 12/08/18 History capsule,delayed release ipratropium 20 mcg-albuterol 100 1 puff INHALATION Q6H PRN 09/05/18 12/08/18 History mcg/actuation mist for inhalation aspirin 81 mg tablet,delayed 81 mg PO QAM 09/17/18 12/08/18 History release cholecalciferol (vitamin D3) 1,000 2,000 units PO BID cap 09/17/18 12/08/18 History unit capsule cetirizine [Zyrtec] 10 mg PO QAM 10/25/18 12/08/18 History metoprolol succinate ER 200 mg 200 mg PO QAM tab 11/11/18 12/08/18 History tablet,extended release 24 hr dulaglutide 1.5 mg/0.5 mL 1.5 mg SQ WEEKLY ml 11/12/18 12/08/18 History subcutaneous pen injector hydralazine 100 mg tablet 100 mg PO BID #180 tab 11/14/18 12/08/18 Rx metolazone 5 mg tablet 5 mg PO BID PRN #12 tab 11/14/18 12/08/18 History torsemide 20 mg tablet 60 mg PO BID #60 tab 11/14/18 12/08/18 Rx Patient History Social History Preferred Language: Estonian Communication Ability: Effective Visual Impairment: No Limitations Economic Manager Required: No Beliefs That Will Affect Care: None marital status: Current Living Situation: Spouse current occupational status: unemployed Other Information That Helps Us Care for You: No Feels Safe at Home: Yes Safety Concerns: Feels Safe At This Time Smoking Status: Former smoker Tobacco Type: cigarettes ; Cigarettes Per Day: reports he quit smoking at 14 years old ; Second Hand Exposure: No ; Hx Alcohol Use: No Hx Substance Use: No Review of Systems Review of Systems: All systems reviewed & are unremarkable except as noted in HPI & below Physical Exam Physical Exam: Temp Pulse Resp BP Pulse Ox 36.5 C 79 20 142/103 H 98 12/09/18 11:02 12/09/18 11:02 12/09/18 11:02 12/09/18 14:39 12/09/18 11:02 Constitutional: WD/WN, vitals as above Respiratory: normal respiratory effort, lungs clear to auscultation Cardiovascular: Rate/Rhythm: regular rhythm (Distant heart sounds, no definite murmur) Vessels: + JVD (Mild jugular venous) Extremities: + edema (Trace lower extremity edema) Gastrointestinal (Abdomen): normal bowel sounds, soft, nontender, no hepatosplenomegaly Neurologic: PERRL, EOMI, accommodation nl, no face palsy, no dysarthria Results & Data Vital Signs (Past 12 Hours) Vital Signs Temp Pulse Pulse Resp BP Pulse Ox 12/09/18 14:39 142/103 H 12/09/18 11:02 36.5 C 79 20 164/104 H 98 12/09/18 08:00 104 H 12/09/18 07:19 36.4 C L 77 19 163/116 H 95 Laboratory Results Cardiac Enzymes 12/08/18 12/09/18 Range/Units 20:57 06:42 AST 11 L (15-37) U/L Troponin I 0.025 (0-0.045) ng/ml CBC 12/09/18 Range/Units 06:42 WBC 9.52 (4.8-10.8) K/uL RBC 5.23 (4.7-6.1) M/uL Hgb 15.1 (14.0-18.0) g/dL Hct 44.5 (42-52) % Plt Count 183 (130-400) K/uL Comprehensive Metabolic Panel 12/09/18 Range/Units 06:42 Sodium 138 (136-145) mmol/L Potassium 3.1 L D (3.5-5.1) mmol/L Chloride 105 (98-107) mmol/L Carbon Dioxide 26 (21-32) mmol/L BUN 13 (7-18) mg/dl Creatinine 1.04 (0.6-1.4) mg/dl Glucose 129 H (70-99) mg/dl Calcium 8.4 L (8.5-10.1) mg/dl AST 11 L (15-37) U/L ALT 20 (12-78) U/L Alkaline Phosphatase 93 (45-117) U/L Total Protein 7.2 (6.4-8.2) gm/dl Albumin 3.3 L (3.4-5.0) gm/dl Intake and Output 12/09/18 12/09/18 12/09/18 06:59 14:59 22:59 Intake Total 300 / 780 440 / 440 Output Total 3900 / 6000 2650 / 2650 Balance -3600 / -5220 -2210 / -2210 Intake: Oral 300 / 780 440 / 440 Output: Urine 3900 / 6000 2650 / 2650 Other: Weight 158.8 kg
[2018-12-09] MEDS ORDERED: GUAIFENESIN/DEXTROM SYRUP 200MG/20MG 10ML UDC PO PRN (17:23)
--- NOTE | 2018-12-09 17:35 | Pulmonary Consultation ---
Date of Consultation December 09, 2018 Assessment & Plan (1) Hemoptysis: -- Hemoptysis Multifactorial secondary to aggressive coughing which has been going on since more than a week likely secondary to underlying exacerbation of heart failure, patient also has an enlarged left atrium which may be causing irritation of laryngeal nerve leading to cough. Patient also has underlying asthma although I am skeptical that this is asthma related. Patient's hemoglobin is stable. If there is drop in hemoglobin we need to stop aspirin and Lovenox. We will start the patient on antitussive medication. Patient is allergic to a lot of medication. Case discussed with pharmacy and they agree with guaifenesin and dextromethorphan for patient's cough. Treat underlying heart failure with diuresis as per cardiology. Continue with inhaled therapy for asthma. -- MARIELENA with morbid obesity Patient had a sleep apnea machine at home but it was taken away as per the patient in July 2018 after repeat sleep study Looking at patient's habitus Mallampati score 4 daytime somnolence and history of congestive heart failure which puts the patient at Sadiq-Han breathing. Patient will benefit from CPAP/BiPAP nightly and as needed shortness of breath. We will get an ABG to see what the baseline PCO2 is. Patient needs sleep study as soon as possible as an outpatient. Patient is to follow-up with pulmonary/sleep on discharge. Patient will benefit from bariatric surgery. Importance of weight loss explained to the patient. -- History of asthma Not an exacerbation Patient is on Combivent at home as needed. Patient needs outpatient PFTs. Start Brovana and budesonide nebulized while the patient is in the hospital. On discharge patient can be given Budesonide(ICS) inhaled BID. (2) Acute on chronic combined systolic and diastolic CHF (congestive heart failure): (3) Morbid obesity: (4) Nonischemic cardiomyopathy: (5) Obstructive sleep apnea: History of Present Illness Reason for Consultation: Hemoptysis Attending Physician: Anu Lee MD History of Present Illness 42-year-old matilde with past medical history of nonischemic dilated car diomyopathy, with recent ejection fraction on the last echo being 55%, asthma, MARIELENA not on CPAP since July 2018, morbid obesity, diabetes, hypertension was admitted to the hospital because of fluid overload and exacerbation of his underlying heart failure. Patient states that he is compliant with his medications. Patient is also been coughing a lot since the last week and bringing up dark brown blood tinged phlegm since last couple of days. It is occasional not present all the time. Patient is not able to quantify it properly but is less than half a tablespoon. No weight loss patient is actually weight gain. No night sweats, no history of TB. Patient has been complaining of shortness of breath especially when lying flat. Patient states he is not able to go to sleep while laying flat. 3 pillow orthopnea. Positive daytime somnolence, positive snoring at night. Denies any urge to move his legs at night or in the evening. Patient is noncompliant with his diet. And as per the previous notes noncompliant with his medications as well. Social history: States that he used to smoke a little and quit at the age of 14, no alcohol use, no illicit drug use. 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 No pets at home, no poultry nearby. Patient stays with . Allergies: Patient is allergic to multiple medications, he also has seasonal allergy for which he takes Zyrtec and Benadryl. Allergies Allergy/AdvReac Type Severity Reaction Status Date / Time ceftriaxone Allergy Severe SHORTNESS Verified 12/08/18 14:48 OF BREATH lidocaine Allergy Severe SHORTNESS Verified 12/08/18 14:48 OF BREATH, diaphoretic, hives procaine Allergy Severe SHORTNESS Verified 12/08/18 14:48 OF BREATH, diaphoretic, hives amoxicillin Allergy Intermediate HIVES/FACIAL Verified 12/08/18 14:48 SWELLING lisinopril Allergy Intermediate HIVES Verified 12/08/18 14:48 albuterol Allergy Mild proair Verified 12/08/18 14:48 "trouble taking breaths" clavulanic acid Allergy Unknown . Verified 12/08/18 14:48 acetaminophen AdvReac Mild NAUSEA Verified 12/08/18 14:48 Home Medications Home Medications Medication Instructions Recorded Confirmed Type Entresto 1 tab PO BID #60 tab 08/19/18 12/08/18 Rx insulin lispro protamine-lispro 40 units SQ BID ml 08/28/18 12/08/18 History 100 unit/mL (50-50) subcutaneous pen esomeprazole magnesium 20 mg 20 mg PO BID cap 09/05/18 12/08/18 History capsule,delayed release ipratropium 20 mcg-albuterol 100 1 puff INHALATION Q6H PRN 09/05/18 12/08/18 History mcg/actuation mist for inhalation aspirin 81 mg tablet,delayed 81 mg PO QAM 09/17/18 12/08/18 History release cholecalciferol (vitamin D3) 1,000 2,000 units PO BID cap 09/17/18 12/08/18 History unit capsule cetirizine [Zyrtec] 10 mg PO QAM 10/25/18 12/08/18 History metoprolol succinate ER 200 mg 200 mg PO QAM tab 11/11/18 12/08/18 History tablet,extended release 24 hr dulaglutide 1.5 mg/0.5 mL 1.5 mg SQ WEEKLY ml 11/12/18 12/08/18 History subcutaneous pen injector hydralazine 100 mg tablet 100 mg PO BID #180 tab 11/14/18 12/08/18 Rx metolazone 5 mg tablet 5 mg PO BID PRN #12 tab 11/14/18 12/08/18 History torsemide 20 mg tablet 60 mg PO BID #60 tab 11/14/18 12/08/18 Rx Patient History Social History Preferred Language: Micronesian Communication Ability: Effective Visual Impairment: No Limitations Coping Machine Assembler Required: No Beliefs That Will Affect Care: None marital status: Current Living Situation: Spouse current occupational status: unemployed Other Information That Helps Us Care for You: No Feels Safe at Home: Yes Safety Concerns: Feels Safe At This Time Smoking Status: Former smoker Tobacco Type: cigarettes ; Cigarettes Per Day: reports he quit smoking at 14 years old ; Second Hand Exposure: No ; Hx Alcohol Use: No Hx Substance Use: No Review of Systems Review of Systems: All systems reviewed & are unremarkable except as noted in HPI & below Physical Exam Physical Exam: Constitutional: No acute distress HEENT: EOMI, PERRLA, status post uvulectomy, Mallampati score 4 Respiratory system: Distant breath sounds bilaterally, no wheeze, no rhonchi, no crackles CVS: S1-S2 positive, no murmurs or gallops, accentuated P2 Abdomen: Soft, nontender, nondistended, positive bowel sounds x4, obese Extremities: +2 pulses bilaterally radialis/ dorsalis pedis, +1 edema bilateral lower extremity, no cyanosis, positive varicosities bilateral lower extremity Neuro: Awake alert oriented x3 Psych: Normal mood and affect G/U: No [place] Lymphatic: no cervical or axillary lymphadenopathy Results & Data Vital Signs (Past 12 Hours) Vital Signs Temp Pulse Pulse Resp BP Pulse Ox 12/09/18 15:31 36.6 C 83 17 120/68 96 12/09/18 14:39 142/103 H 12/09/18 11:02 36.5 C 79 20 164/104 H 98 12/09/18 08:00 104 H 12/09/18 07:19 36.4 C L 77 19 163/116 H 95 12/09/18 06:42 12/09/18 06:42 Intake & Output 12/07/18 12/08/18 12/09/18 12/10/18 06:59 06:59 06:59 06:59 Intake Total 780 / 780 440 / 440 Output Total 6000 / 6000 2650 / 2650 Balance -5220 / -5220 -2210 / -2210 Weight 158.8 kg Diagnostic Findings CTA chest on 12/08/2018: Personally reviewed. Inadequate contrast. No central PE appreciated. Increased pulmonary vasculature. Mild groundglass appreciated bilaterally likely represents pulmonary edema. No pleural effusion. PG Care Time/CCT Total # of Minutes Spent Total Time Spent with Patient: Total time spent is greater than 50% in coordination of care (as documented) at patient's floor/unit and/or counseling patient:
[2018-12-09] MEDS: SPIRONOLACTONE 25 MG TAB PO SCH (18:02)
[2018-12-09] MEDS: ENOXAPARIN INJ 40 MG/0.4 ML SYR SQ SCH (18:02)
[2018-12-09 18:44] LABS: HCO3 ABG 23 mmol/L (19-24); Oxygen Saturation ABG 96.3 % (90-95); PCO2 ABG 30 mmHg (35-46); PO2 ABG 77 mm/Hg (80-95)
[2018-12-09 18:46] LABS: Allen Test POS (Pos)
[2018-12-09] MEDS: ARFORMOTEROL TART 15MCG/2ML VIAL INH SCH (19:18)
[2018-12-09] MEDS: BUDESONIDE 0.25 MG/2 ML VIAL (PULMICORT) NEB SCH (19:19)
[2018-12-09] MEDS: POTASSIUM CHLORIDE 20 MEQ TABCR PO SCH (20:04)
[2018-12-09] MEDS ORDERED: POTASSIUM CHLORIDE 20 MEQ TABCR PO SCH (21:00)
[2018-12-10 05:38] LABS: Hemoglobin 16.5 g/dL (14.0-18.0); Mean Corpuscular Hemoglobin 29.3 pg (25-34); Mean Corpuscular Hgb Conc 34.4 g/dL (32-36); Mean Corpuscular Volume 85.3 fL (80-100); Platelet Count 211 K/uL (130-400); RDW Coefficient of Variation 14.8 % (11.5-14.5); RDW Standard Deviation 45.5 fL (36.4-46.3); Red Blood Count 5.63 M/uL (4.7-6.1); White Blood Count 10.71 K/uL (4.8-10.8)
[2018-12-10 06:23] LABS: Albumin Globulin Ratio 0.8 (0.9-2); Albumin Level 3.5 gm/dl (3.4-5.0); BUN Creatinine Ratio 11.9 (10-20); Bilirubin,Total 0.9 mg/dl (0.2-1); Calcium 8.7 mg/dl (8.5-10.1); Creatinine Clr Calc Pharmacy 93.8 ml/min; Est GFR (African American) 65.5; Est GFR (Non-African American) 56.6; Globulin 4.2 gm/dl (2.5-4.0); Magnesium 1.9 mg/dl (1.8-2.4); Potassium 3.6 mmol/L (3.5-5.1); Total Protein 7.7 gm/dl (6.4-8.2)
[2018-12-10] MEDS: BUDESONIDE 0.25 MG/2 ML VIAL (PULMICORT) NEB SCH ×2 (07:12→19:37)
[2018-12-10] MEDS: ARFORMOTEROL TART 15MCG/2ML VIAL INH SCH ×2 (07:12→19:37)
[2018-12-10] MEDS: METOPROLOL SUCC 50MG EXT REL TAB PO SCH (07:38)
[2018-12-10] MEDS: FUROSEMIDE 80 MG in SYRINGE 0 ML IV SCH (08:04)
[2018-12-10] MEDS: PANTOprazole 40 MG TAB PO SCH (08:05)
[2018-12-10] MEDS: CHOLECALCIFEROL 1,000 UNITS TAB PO SCH ×3 (08:05→21:55)
[2018-12-10] MEDS: SPIRONOLACTONE 25 MG TAB PO SCH (08:05)
[2018-12-10] MEDS: CETIRIZINE HCL 10 MG TABLET PO SCH (08:07)
[2018-12-10] MEDS: ASPIRIN 81 MG ECTAB PO SCH (08:07)
[2018-12-10] MEDS: SACUBITRIL-VALSARTAN 49/51 MG TAB PO SCH ×3 (08:07→21:56)
[2018-12-10] MEDS: POTASSIUM CHLORIDE 20 MEQ TABCR PO SCH (08:07)
[2018-12-10] MEDS: ENOXAPARIN INJ 40 MG/0.4 ML SYR SQ SCH (08:08)
[2018-12-10] MEDS: HydrALAZINE TAB 50 MG TAB PO SCH ×3 (08:08→21:56)
[2018-12-10] MEDS: INSULIN HUMAN NPH SC SCH ×2 (08:09→17:09)
[2018-12-10] MEDS: INSULIN ASPART 100 UNITS/ML 3 ML PEN SC SCH ×4 (08:11→20:26)
[2018-12-10] MEDS: POTASSIUM CHLORIDE 20 MEQ/15 ML UDC PO SCH ×3 (09:45→21:56)
--- NOTE | 2018-12-10 10:12 | Pulmonology Progress Note ---
Date of Service December 10, 2018 Assessment & Plan (1) Hemoptysis: -- Hemoptysis Multifactorial secondary to aggressive coughing which has been going on since more than a week likely secondary to underlying exacerbation of heart failure, patient also has an enlarged left atrium which may be causing irritation of laryngeal nerve leading to cough. Patient also has underlying asthma although I am skeptical that this is asthma related. Patient's hemoglobin is stable. If there is drop in hemoglobin we need to stop aspirin and Lovenox. Patient has been started on antitussive medication. Patient is allergic to a lot of medication. Case discussed with pharmacy and they agree with guaifenesin and dextromethorphan for patient's cough. Treat underlying heart failure with diuresis as per cardiology. Continue with inhaled therapy for asthma. -- MARIELENA with morbid obesity Patient had a sleep apnea machine at home but it was taken away as per the patient in July 2018 after repeat sleep study Looking at patient's habitus Mallampati score 4 daytime somnolence and history of congestive heart failure which puts the patient at S[facility]q-Han breathing. Patient will benefit from CPAP/BiPAP nightly and as needed shortness of breath. AB.5/30/77/96% on room air on 12/09/2018 Patient needs sleep study as soon as possible as an outpatient. Patient is to follow-up with pulmonary/sleep on discharge. Patient will benefit from bariatric surgery. Importance of weight loss explained to the patient. -- History of asthma Not an exacerbation Patient is on Combivent at home as needed. Patient needs outpatient PFTs. Continue with Brovana and budesonide nebulized while the patient is in the [facility]. On discharge patient can be given Budesonide(ICS) inhaled BID. -- Acute kidney injury Likely from furosemide, monitor BUN/creatinine Recommend decreasing the dose Cardiology following the case. (2) Acute on chronic combined systolic and diastolic CHF (congestive heart failure): (3) Morbid obesity: (4) Nonischemic cardiomyopathy: (5) Obstructive sleep apnea: Subjective Patient seen and examined at bedside. No acute distress, no adverse events overnight. Patient denies any episodes of hemoptysis since I saw him yesterday. No cough. Did not ask for any cough medication. Has been getting inhaled therapy for his underlying asthma. No chest pain, no palpitation, no dizziness, no nausea, no vomiting. Used BiPAP overnight. Review of Systems Review of Systems: All systems reviewed & are unremarkable except as noted in HPI & below Physical Exam Physical Exam: Constitutional: No acute distress HEENT: EOMI, PERRLA, status post uvulectomy, Mallampati score 4 Respiratory system: Distant breath sounds bilaterally, no wheeze, no rhonchi, no crackles CVS: S1-S2 positive, no murmurs or gallops, accentuated P2 Abdomen: Soft, nontender, nondistended, positive bowel sounds x4, obese Extremities: +2 pulses bilaterally radialis/ dorsalis pedis, +1 edema bilateral lower extremity, no cyanosis, positive varicosities bilateral lower extremity Neuro: Awake alert oriented x3 Psych: Normal mood and affect G/U: No [place] Lymphatic: no cervical or axillary lymphadenopathy Results & Data Vital Signs (Past 12 Hours) Vital Signs Temp Pulse Pulse Pulse Resp BP BP 12/10/18 07:17 36.2 C L 78 19 94/66 L 12/10/18 07:15 71 18 12/10/18 03:06 36.7 C 75 19 110/79 12/10/18 00:00 89 12/09/18 23:12 36.6 C 85 19 123/78 Pulse Ox 12/10/18 07:17 98 12/10/18 07:15 96 12/10/18 03:06 95 12/10/18 00:00 12/09/18 23:12 96 12/10/18 05:15 12/10/18 05:15 PG Care Time/CCT Total # of Minutes Spent Total Time Spent with Patient: Total time spent is greater than 50% in coordination of care (as documented) at patient's floor/unit and/or counseling patient:
--- NOTE | 2018-12-10 13:54 | Cardiology Progress Note ---
Date of Service December 10, 2018 Assessment & Plan (1) Acute on chronic combined systolic and diastolic CHF (congestive heart failure): Creatinine is increased to 1.521, he has approach to his previous dry weight of 340 pounds, weighing 341 pounds today. Pulmonary medicine input noted and appreciated, agree the patient would tolerate from noninvasive positive ventilation on a chronic basis. He apparently had been on this in the past, but has difficulties with his mask at present I do not believe he is utilizing at home. I have placed a hold on his furosemide treatment, he received 80 mg this morning. I have also placed a hold on spironolactone, pending reassessment of his kidney function tomorrow. Blood pressure is controlled. Agree with Lovenox 40 mg subcu daily for DVT prophylaxis, this dose may need to be adjusted depending upon his kidney function results tomorrow. Subjective CC: follow up shortness of breath Subjective: Patient feels marginally better today. He states that the hemoptysis he described yesterday is trending toward improvement. Telemetry reveals sinus rhythm in the 70 be per minute range. His standing scale weight has improved to 341 pounds. Review of Systems Review of Systems: All systems reviewed & are unremarkable except as noted in HPI & below Physical Exam Physical Exam: Temp Pulse Resp BP Pulse Ox 36.5 C 90 19 95/66 L 95 12/10/18 11:29 12/10/18 11:29 12/10/18 11:29 12/10/18 11:29 12/10/18 11:29 Constitutional: + morbidly obese Respiratory: Mildly decreased breath sounds the bases no rales rhonchi or wheezing Cardiovascular: Distant heart sounds, regular rhythm no murmurs Trace lower extremity edema Neurologic: PERRL, EOMI, accommodation nl, no face palsy, no dysarthria Results & Data Vital Signs (Past 12 Hours) Vital Signs Temp Pulse Pulse Resp BP BP Pulse Ox 12/10/18 11:29 36.5 C 90 19 95/66 L 95 12/10/18 07:17 36.2 C L 78 19 94/66 L 98 12/10/18 07:15 71 18 96 12/10/18 03:06 36.7 C 75 19 110/79 95 Laboratory Results Cardiac Enzymes 12/10/18 Range/Units 05:15 AST 12 L (15-37) U/L CBC 12/10/18 Range/Units 05:15 WBC 10.71 (4.8-10.8) K/uL RBC 5.63 (4.7-6.1) M/uL Hgb 16.5 (14.0-18.0) g/dL Hct 48.0 (42-52) % Plt Count 211 (130-400) K/uL Comprehensive Metabolic Panel 12/10/18 Range/Units 05:15 Sodium 140 (136-145) mmol/L Potassium 3.6 D (3.5-5.1) mmol/L Chloride 105 (98-107) mmol/L Carbon Dioxide 27 (21-32) mmol/L BUN 18 (7-18) mg/dl Creatinine 1.51 H D (0.6-1.4) mg/dl Glucose 139 H (70-99) mg/dl Calcium 8.7 (8.5-10.1) mg/dl AST 12 L (15-37) U/L ALT 20 (12-78) U/L Alkaline Phosphatase 101 (45-117) U/L Total Protein 7.7 (6.4-8.2) gm/dl Albumin 3.5 (3.4-5.0) gm/dl Intake and Output 12/09/18 12/10/18 12/10/18 22:59 06:59 14:59 Intake Total 222 / 812 150 / 812 Output Total 1551 / 4451 250 / 4451 Balance -1329 / -3639 -100 / -3639 Intake: Oral 222 / 812 150 / 812 Output: Urine 1550 / 4450 250 / 4450 # Bowel Movements Other: Weight 154.9 kg
--- NOTE | 2018-12-10 17:15 | Hospitalist Progress Note ---
Date of Service December 10, 2018 Assessment & Plan (1) Acute on chronic systolic (congestive) heart failure: Continue admit to tele for observation Pt left AMA on 11/26/18 when he was previously admitted for CHF exacerbation. Given lasix 40 mg IV in the ER, will add another 40 mg IV dose tonight, monitor strict I's and O's, then continue with Lasix 80 mg IV BID dosing, holding torsemide Free water restriction to 1000 ml per day. Strict I/O Daily weight, Low sodium diet. Follows with Mariah Mazariegos PA-C with CHF clinic as an outpatient, he has switched to [facility] cardiology, seeing them outpatient last week, he is agreeable to seeing our team in the hospital currently, will need to readdress this hospitalization and see which team he chooses to follow with. Continue Entresto, hydralazine 100 mg BID, metolazone 5 my BID, metoprolol succinate 200 mg QAM EKG reviewed Appreciate cardiology recs: Acute on chronic combined systolic and diastolic CHF (congestive heart failure): Creatinine is increased to 1.521, he has approach to his previous dry weight of 340 pounds, weighing 341 pounds today. Hold on his furosemide treatment, he received 80 mg this morning, which increased his creatinine to 1.51 I have also placed a hold on spironolactone, pending reassessment of his kidney function tomorrow. Blood pressure is controlled. DVT ppx - pt switched to heparin 5000 units Q8hr due to acute kidney insufficiency. (2) Nonischemic cardiomyopathy: Most recent 2D echo with LVEF = 50-55% in Oct 2018 Continue medications as above Likely secondary to hypertension (3) Hypoxia: Likely due to CHF exacerbation as above Check CTPE to r/o thromboembolic disease Unsure as to why the patient no longer has CPAP/BiPAP as he requires this for MARIELENA, recommend follow-up with Olga Banuelos with pulmonology as outpatient, will order bipap now Continue supplemental O2 prn, typically does no require this as outpatient (4) Hemoptysis: Ongoing as per pt report, has cough with small amount of pink sputum. No blood seen in it. He previously had bronchoscopy for this which was completed by Dr. Murray in May 2018, no obvious etiology was found, it was thought that this was a result of malignant hypertension and CHF and was suggested that he could be compliant with BiPAP therapy. Placed pulmonary consult (5) Hypertension: -Continue antihypertensive regimen as above -IV labetalol as needed SBP >160 or DBP >110 (6) Dyslipidemia: -not on statin, last lipid panel in Spring 2018 showed total cholesterol of 171. Diet and exercise encouraged as above (7) Diabetes mellitus, type II: A1C = 7.4 on 10/31/18, no need to recheck ISS with accuchecks achs Glycemic pharmacy consulted HH/DM Diet ordered (8) Peripheral neuropathy: Secondary to DM type II (9) Obstructive sleep apnea: order BiCPAP at bedtime , noncompliance/not wearing this likely contributing to hypoxia (10) Obesity hypoventilation syndrome: (11) COPD (chronic obstructive pulmonary disease): Continue ipratropium inhaler as needed, Order BiPAP at bedtime Supplemental O2 Follows with Olga Banuelos as outpatient, will need f/u upon discharge (12) Morbid obesity: BMI equals 55 Discussion was held regarding eating whole and unprocessed food, no sugar, no extra carbs, no soda etc at bedside. Exercise was encouraged however that is very difficult for the patient given his current respiratory status. Continue to encourage upon discharge. HH/DM diet (13) GERD (gastroesophageal reflux disease): Stable, patient avoids acidic foods which seems to help (14) Vitamin D insufficiency: Continue supplementation (15) Depression with anxiety: Patient uses coping mechanisms, is not on any medication (16) DVT prophylaxis: SCDs,Discussed with Dr. Houston who did bronchoscopy on the pt 05/31 and he recommended to start Lovenox for DVT ppx. Code: Full code Dispo: From home, likely to remain in the hospital at least 1 night (17) Acute kidney insufficiency: Avoid nephrotoxic agents. Hold Furosemide 80 mg IV for now. Present on Admission?: Yes Subjective Seen and examined at the bedside. Patient is close to his crude weight of 340 pounds. Now patient has 341 pound. He reports the CPAP helped him significantly overnight. Patient denies fever, chills, chest pain, shortness of breath, abdominal pain, frequency, urgency. Patient is compliant with fluid restriction. Review of Systems Review of Systems: All systems reviewed & are unremarkable except as noted in HPI & below Physical Exam Constitutional: WD/WN, vitals as above well developed and + morbidly obese Eyes: PERRL, conjunctivae normal, anicteric sclerae ENMT: external ear and nose normal, oropharynx normal Neck: trachea midline, no thyromegaly Respiratory: Auscultation: + crackles and + wheezes Cardiovascular: Vessels: dorsalis pedis pulses present Extremities: + pedal edema and + edema Gastrointestinal (Abdomen): normal bowel sounds, soft, nontender, no hepatosplenomegaly Musculoskeletal: no cyanosis or clubbing, extremities motor strength 5/5 Skin: no rashes, warm and dry Neurologic: patellar DTR's 2+ bilat, sensation intact Psychiatric: A+Ox3, euthymic affect Lymphatic: no cervical or axillary lymphadenopathy Results & Data Vital Signs (Past 12 Hours) Vital Signs Temp Pulse Pulse Resp BP Pulse Ox 12/10/18 15:29 36.4 C L 106 H 19 132/69 97 12/10/18 11:29 36.5 C 90 19 95/66 L 95 12/10/18 07:17 36.2 C L 78 19 94/66 L 98 12/10/18 07:15 71 18 96 PG Care Time/CCT Total # of Minutes Spent Total Time Spent with Patient: Total time spent is greater than 50% in coordination of care (as documented) at patient's floor/unit and/or counseling patient: (1) Hypertension Hypertension type: unspecified Qualified Code(s): I10 - Essential (primary) hypertension (2) Diabetes mellitus, type II Diabetes mellitus detention insulin use: with long term care social worker use Diabetes mellitus complication status: with other specified complication Qualified Code(s): E11.69 - Type 2 diabetes mellitus with other specified complication; Z79.4 - long term acute care registered nurse (current) use of insulin (3) COPD (chronic obstructive pulmonary disease) COPD type: unspecified COPD Qualified Code(s): J44.9 - Chronic obstructive pulmonary disease, unspecified (4) GERD (gastroesophageal reflux disease) Esophagitis presence: without esophagitis Qualified Code(s): K21.9 - Gastro- esophageal reflux disease without esophagitis
[2018-12-10] MEDS: HEPARIN SOD 5,000 UNIT/0.5 ML VIAL SQ SCH (19:46)
[2018-12-10] MEDS ORDERED: GADOBUTROL 65ML VIAL IV PRN (21:33)
--- NOTE | 2018-12-10 21:48 | Magnetic Resonance Report ---
Brain MRI WITH AND WITHOUT CONTRAST HISTORY: right sided weakness TECHNIQUE: Multiplanar multisequence MRI of the brain was performed both before and after the intrave nous administration of contrast. COMPARISON STUDY: Brain MRI 02/09/2018. FINDINGS: Mild motion artifact. No areas of restricted diffusion to suggest acute infarction. The mid line structures appear grossly intact. The major vascular flow voids at the skull base are well-maint ained. The ventricles and sulci are within normal limits. The paranasal sinuses and mastoid air cells are clear. The orbits are unremarkable. There is no mass, hematoma, midline shift. No significant ch samia in the mild periventricular and subcortical white matter T2 hyperintensity. No abnormal enhancem ent. IMPRESSION: 1. No acute intracranial abnormality. 2. No significant change in the T2 hyperintense foci within the periventricular and subcortical white matter. This is nonspecific but considered abnormal for the patient's age age and can be seen in the setting of multiple sclerosis, Lyme disease, or migraines. Clinical correlation recommended. Electronically signed by: Andrea Bear M.D. 12/10/2018 9:47 PM
[2018-12-10] MEDS ORDERED: TRAMADOL HCL 50 MG TABLET PO STA (22:24)
--- NOTE | 2018-12-11 03:27 | Progress Note ---
Date of Service December 11, 2018 Assessment & Plan (1) Left-sided weakness: Subjective; I was called to the patient's room this evening with complaints of left-sided weakness. When I arrived in the room the patient had his left arm flexed and held close to his chest. He said that he had numbness in his left upper extremity and then his left lower extremity. He says that he has had this before but on the right side. He had an MRI completed on 11/07/2018 for the right sided complaints that showed tiny nonspecific scattered foci. Today he denies any right-sided symptoms. Objective; on exam the patient appeared anxious, cranial nerves were grossly intact, strength and sensation was preserved in the lower extremities bilaterally Left armpatient has left arm flexed against his body. The patient resists passive range of motion. Patient was able to reproducer with both hands, strength equal in both hands. He states decreased sensation on the left arm and left hand. A/P; Considered acute stroke versus demyelination disorder versus TIA Neurology consult, appreciate recommendations Ordered a stat MRI with and without contrast Patient symptoms for resolved following MRI, stroke alert deferred MRI was unremarkable for acute abnormality, but did show these chronic foci which could correspond with MS, Lyme's, migraines Patient's neuro exam of the left upper extremity did not make a lot of sense. He described having weakness but showed great strength while resisting passive range of motion and also expressed pain with passive range of motion. This could represent hyperreflexia and an upper motor neuron pattern, but is less likely. Also consider conversion disorder. The patient does have a significant history of trauma and intellectual disability. Results & Data Vital Signs (Past 12 Hours) Vital Signs Temp Pulse Pulse Resp BP BP Pulse Ox 12/11/18 01:41 105 H 24 91 12/11/18 00:09 103 H 20 93 12/10/18 23:27 36.5 C 109 H 19 133/83 96 12/10/18 19:45 36.4 C L 88 16 117/76 95 12/10/18 19:39 89 14 95 12/10/18 15:29 36.4 C L 106 H 19 132/69 97 PG Care Time/CCT Total # of Minutes Spent Total Time Spent with Patient: Total time spent is greater than 50% in coordination of care (as documented) at patient's floor/unit and/or counseling patient:
[2018-12-11] MEDS: HEPARIN SOD 5,000 UNIT/0.5 ML VIAL SQ SCH (05:25)
[2018-12-11] MEDS: ARFORMOTEROL TART 15MCG/2ML VIAL INH SCH (07:03)
[2018-12-11] MEDS: BUDESONIDE 0.25 MG/2 ML VIAL (PULMICORT) NEB SCH (07:03)
[2018-12-11 07:15] LABS: Hematocrit (blood only) 49.1 % (42-52); Hemoglobin 16.8 g/dL (14.0-18.0); Mean Corpuscular Hemoglobin 29.3 pg (25-34); Mean Corpuscular Hgb Conc 34.2 g/dL (32-36); Mean Corpuscular Volume 85.7 fL (80-100); Mean Platelet Volume 10.2 fL (7.4-10.4); Platelet Count 196 K/uL (130-400); RDW Coefficient of Variation 15.1 % (11.5-14.5); RDW Standard Deviation 46.3 fL (36.4-46.3); Red Blood Count 5.73 M/uL (4.7-6.1); White Blood Count 7.92 K/uL (4.8-10.8)
[2018-12-11 07:43] LABS: Albumin Level 3.3 gm/dl (3.4-5.0); Calcium 9.1 mg/dl (8.5-10.1); Creatinine Clr Calc Pharmacy 108.3 ml/min; Est GFR (African American) 77.8; Est GFR (Non-African American) 67.2; Potassium 3.6 mmol/L (3.5-5.1)
[2018-12-11 07:47] LABS: Albumin Globulin Ratio 0.8 (0.9-2); Bilirubin,Total 0.8 mg/dl (0.2-1); Total Protein 7.3 gm/dl (6.4-8.2)
[2018-12-11] MEDS: CETIRIZINE HCL 10 MG TABLET PO SCH (08:30)
[2018-12-11] MEDS: SACUBITRIL-VALSARTAN 49/51 MG TAB PO SCH (08:30)
[2018-12-11] MEDS: ASPIRIN 81 MG ECTAB PO SCH (08:30)
[2018-12-11] MEDS: HydrALAZINE TAB 50 MG TAB PO SCH (08:31)
[2018-12-11] MEDS: METOPROLOL SUCC 50MG EXT REL TAB PO SCH (08:31)
[2018-12-11] MEDS: POTASSIUM CHLORIDE 20 MEQ/15 ML UDC PO SCH ×2 (08:32→08:39)
[2018-12-11] MEDS: CHOLECALCIFEROL 1,000 UNITS TAB PO SCH ×2 (08:33→08:37)
[2018-12-11] MEDS: INSULIN HUMAN NPH SC SCH (08:40)
[2018-12-11] MEDS: INSULIN ASPART 100 UNITS/ML 3 ML PEN SC SCH ×2 (08:42→12:16)
--- NOTE | 2018-12-11 09:57 | Cardiology Progress Note ---
Date of Service December 11, 2018 Assessment & Plan (1) Acute on chronic combined systolic and diastolic CHF (congestive heart failure): (2) Morbid obesity: P.m. diuretic dose held yesterday 12/10/2018, having had a serum creatinine of 1.5, serum creatinine is improved to 1.3 this morning. Patient feeling well. His previously documented "dry weight "on past heart failure admissions was considered to be 340 pounds. He is 342 pounds today. The patient is very eager for discharge as he has an outpatient neurology appointment today that he would like to keep. He states his hemoptysis is improved/resolved. Blood pressure is well controlled. Historically per review of his records it appears it is a nonischemic cardia myopathy, perhaps related to hypertensive heart disease. Importance of adherence to his medication regimen has been reinforced. Is stable from a cardiology perspective for discharge. He is decided to transition his outpatient care to [facility] cardiology and I will help arrange an outpatient visit for him within the next 1 to 2 weeks.I have called my office and requested the appointment. In terms of medications, would recommend that he is discharged on his prior to hospital dose of torsemide 20 mg tablets, 3 tablets for a total of 60 mg p.o. twice daily. He may take his afternoon dose today. I would recommend the addition of spironolactone 25 mg by mouth daily for additional heart failure treatment and to help keep his potassium stable. This is been reinitiated today. He should continue his prior to hospital regiment of metolazone 5 mg po, daily on Sundays, Tuesdays, and with the metolazone. Pt encouraged to keep outpt visits to get back on CPAP as an outpatient. Subjective Chief complaint: Follow-up shortness of breath edema Subjective: Patient feeling improved. Telemetry reveals sinus rhythm in the range of 89 bpm with occasional PVCs no significant arrhythmia. Review of Systems Review of Systems: All systems reviewed & are unremarkable except as noted in HPI & below Physical Exam Physical Exam: Temp Pulse Resp BP Pulse Ox 36.5 C 60 19 116/76 94 12/11/18 07:23 12/11/18 07:23 12/11/18 07:23 12/11/18 07:23 12/11/18 07:23 Constitutional: WD/WN, vitals as above Respiratory: normal respiratory effort, lungs clear to auscultation Cardiovascular: RRR, no murmur, no edema Gastrointestinal (Abdomen): normal bowel sounds, soft, nontender, no hepatosplenomegaly Neurologic: PERRL, EOMI, accommodation nl, no face palsy, no dysarthria Results & Data Vital Signs (Past 12 Hours) Vital Signs Temp Pulse Pulse Pulse Resp BP BP 12/11/18 07:23 36.5 C 60 19 116/76 12/11/18 07:04 89 16 12/11/18 03:19 36.6 C 83 19 109/76 12/11/18 01:41 105 H 24 12/11/18 00:09 103 H 20 12/10/18 23:27 36.5 C 109 H 19 133/83 12/10/18 23:00 104 H Pulse Ox 12/11/18 07:23 94 12/11/18 07:04 94 12/11/18 03:19 96 12/11/18 01:41 91 12/11/18 00:09 93 12/10/18 23:27 96 12/10/18 23:00 Laboratory Results Cardiac Enzymes 12/11/18 Range/Units 06:57 AST 13 L (15-37) U/L CBC 12/11/18 Range/Units 06:57 WBC 7.92 (4.8-10.8) K/uL RBC 5.73 (4.7-6.1) M/uL Hgb 16.8 (14.0-18.0) g/dL Hct 49.1 (42-52) % Plt Count 196 (130-400) K/uL Comprehensive Metabolic Panel 12/11/18 Range/Units 06:57 Sodium 138 (136-145) mmol/L Potassium 3.6 (3.5-5.1) mmol/L Chloride 107 (98-107) mmol/L Carbon Dioxide 23 (21-32) mmol/L BUN 21 H (7-18) mg/dl Creatinine 1.31 (0.6-1.4) mg/dl Glucose 133 H (70-99) mg/dl Calcium 9.1 (8.5-10.1) mg/dl AST 13 L (15-37) U/L ALT 19 (12-78) U/L Alkaline Phosphatase 93 (45-117) U/L Total Protein 7.3 (6.4-8.2) gm/dl Albumin 3.3 L (3.4-5.0) gm/dl Intake and Output 12/10/18 12/11/18 12/11/18 22:59 06:59 14:59 Intake Total 360 / 1180 150 / 1180 Output Total 300 / 1201 601 / 1201 Balance 60 / -21 -451 / -21 Intake: Oral 360 / 1180 150 / 1180 Output: Urine 300 / 1200 600 / 1200 # Bowel Movements Other: Weight 154.9 kg 155.3 kg
[2018-12-11] MEDS ORDERED: SPIRONOLACTONE 25 MG TAB PO SCH (10:00)
--- NOTE | 2018-12-11 11:21 | Neurology Consultation ---
Date of Consultation December 11, 2018 Assessment & Plan (1) Left-sided weakness: (2) Numbness and tingling of left side of face: (3) Hypoxia: (4) Peripheral neuropathy: (5) Hypertension: Patient had an episode of left-sided weakness and numbness last evening December 10. This was resolved when he was hooked up to the BiPAP machine. This morning he has no focal neurologic deficits, meningeal signs, or encephalopathy. MRI of the brain showed no acute changes with without contrast. He has very mild old small vessel ischemic disease seen unchanged back from a series of MRIs stemming from 2014. He certainly did not have a stroke. I doubt this was a TIA either this may have been more decreased perfusion/hypoxia helped with the BiPAP machine. He does have significant hypertension which is somewhat improved today. Patient has a history of polyneuropathy secondary to diabetes but this is not very significant by examination. He has some chronic low back pain from degenerative changes. Recommendations: 1. I see no need for additional neurologic testing at this time. Please contact me if I can be of further assistance. 2. Continue 81 milligram aspirin tablet daily. 3. Increase activity as able. Overall, I spent a total of 60 minutes with this case including review of records, review of MRI films, direct evaluation the patient at bedside, and discussing the case with patient and his at bedside, and Dr. Lee, including differential diagnosis and treatment options. History of Present Illness Reason for Consultation: Patient is a 42-year-old, who I was asked to see the request of Dr. Stallings, for neurologic consultation regarding acute left-sided weakness and numbness. Requesting Physician: Dr. Stallings Attending Physician: Anu Lee MD History of Present Illness Patient has a history of hypertension, diabetes, dyslipidemia, COPD, depression with anxiety, chronic lumbar spine pain, and nonischemic cardiomyopathy resulting in systolic heart failure. He has been having problems with shortness of breath recently and hemoptysis. In 2014 he was admitted with right hand and face numbness. MRI of the brain showed a few nonspecific white matter spots and no acute changes. MR angiography of the head and neck were unremarkable with no significant stenoses. MRI of the cervical, thoracic, and lumbar spine showed diffuse degenerative changes of disc and bone and no surgical lesions. In May of 2016 an MRI of the brain was obtained for right vision loss which showed no acute changes and no change from the previous study of 2014. In January of 2018 because of vision changes an MRI of the brain showed no changes compared to the 2017 scan. He has been on a baby aspirin tab for years. Patient was admitted December 08 with shortness of breath and hemoptysis. The pressure was 201/140. He did well neurologically until around 930 or 10 he woke up from sleeping with left arm and leg numbness and weakness. He wondered if the face was numb as well. An MRI of the brain (with and without contrast) showed no acute changes and no changes in the white matter spots compared to the previous studies. Around 0030 this morning he was put on BiPAP and as soon as he was connected he felt that all the numbness and weakness of the left side completely disappeared. This morning, he is back to baseline with no numbness or weakness. Allergies Allergy/AdvReac Type Severity Reaction Status Date / Time ceftriaxone Allergy Severe SHORTNESS Verified 12/08/18 14:48 OF BREATH lidocaine Allergy Severe SHORTNESS Verified 12/08/18 14:48 OF BREATH, diaphoretic, hives procaine Allergy Severe SHORTNESS Verified 12/08/18 14:48 OF BREATH, diaphoretic, hives amoxicillin Allergy Intermediate HIVES/FACIAL Verified 12/08/18 14:48 SWELLING lisinopril Allergy Intermediate HIVES Verified 12/08/18 14:48 albuterol Allergy Mild proair Verified 12/08/18 14:48 "trouble taking breaths" clavulanic acid Allergy Unknown . Verified 12/08/18 14:48 acetaminophen AdvReac Mild NAUSEA Verified 12/08/18 14:48 Home Medications Home Medications Medication Instructions Recorded Confirmed Type Entresto 1 tab PO BID #60 tab 08/19/18 12/08/18 Rx insulin lispro protamine-lispro 40 units SQ BID ml 08/28/18 12/08/18 History 100 unit/mL (50-50) subcutaneous pen esomeprazole magnesium 20 mg 20 mg PO BID cap 09/05/18 12/08/18 History capsule,delayed release ipratropium 20 mcg-albuterol 100 1 puff INHALATION Q6H PRN 09/05/18 12/08/18 History mcg/actuation mist for inhalation aspirin 81 mg tablet,delayed 81 mg PO QAM 09/17/18 12/08/18 History release cholecalciferol (vitamin D3) 1,000 2,000 units PO BID cap 09/17/18 12/08/18 History unit capsule cetirizine [Zyrtec] 10 mg PO QAM 10/25/18 12/08/18 History metoprolol succinate ER 200 mg 200 mg PO QAM tab 11/11/18 12/08/18 History tablet,extended release 24 hr dulaglutide 1.5 mg/0.5 mL 1.5 mg SQ WEEKLY ml 11/12/18 12/08/18 History subcutaneous pen injector hydralazine 100 mg tablet 100 mg PO BID #180 tab 11/14/18 12/08/18 Rx metolazone 5 mg tablet 5 mg PO BID PRN #12 tab 11/14/18 12/08/18 History torsemide 20 mg tablet 60 mg PO BID #60 tab 11/14/18 12/08/18 Rx Patient History Medical History Morbid obesity (Chronic) BMI> 50 Sinus bradycardia Acute on chronic systolic (congestive) heart failure (Chronic) Nonischemic cardiomyopathy Peripheral neuropathy (Chronic) 2/2 DM type II. Located on the feet bilaterally. Not requiring medication. 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 Difficult to manage. Integrated into heart failure clinic. Frequent admissions for heart failure exacerbations. Echo (05/31) EF=25-30% with mod to severe global hypokinesis, basal kelsi-septal akinetic wall, LVH, RVSP elevated at 30-40mmHg, and mod dilated ascending aorta. Managed medically with ASA + BB + ARB/Neprilysin inhibitor (Entresto) + high dose furosemide (160mg BID) + metolazone (3x weekly). Considering ICD given EF. 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) Lung nodule (Acute) Dyslipidemia (Acute) Depression with anxiety (Acute) Cluster headache (Acute) Carpal tunnel syndrome (Acute) Bilateral knee pain (Acute) Hemoptysis GERD (gastroesophageal reflux disease) COPD (chronic obstructive pulmonary disease) (Chronic) Acquired claw toe of left foot (Acute) Acquired claw toe of right foot (Acute) Diabetes mellitus with diabetic polyneuropathy (Acute) Back pain (Resolved) Learning disability (Resolved) Cognitive impairment DM II (diabetes mellitus, type II), controlled Depression Fatty liver GERD (gastroesophageal reflux disease) HTN (hypertension) Medical non-compliance Morbid obesity with BMI of 50.0-59.9, adult Nonischemic cardiomyopathy EF 30-35% MARIELENA (obstructive sleep apnea) Does not comply with CPAP Surgical History History of cholecystectomy S/P tonsillectomy Family History Father , age 57 of an [place]. 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: No Beliefs That Will Affect Care: None marital status: Current Living Situation: Spouse current occupational status: unemployed Other Information That Helps Us Care for You: No Feels Safe at Home: Yes Safety Concerns: Feels Safe At This Time Smoking Status: Former smoker Tobacco Type: cigarettes ; Cigarettes Per Day: reports he quit smoking at 14 years old ; Second Hand Exposure: No ; Hx Alcohol Use: No Hx Substance Use: No Review of Systems Constitutional: + fatigue and + weakness; no fever Eyes: no diplopia, no eye pain and no worsening vision Ear, Nose, Mouth, Throat: + hearing loss and + snoring; no ear pain, no tinnitus, no dizziness, no hoarseness and no dysphagia Respiratory: + dyspnea on exertion; no cough, no dyspnea and no hemoptysis Cardiovascular: no chest pain, no palpitations and no lightheadedness Gastrointestinal: no abdominal pain, no nausea and no vomiting Genitourinary: no dysuria and no urinary incontinence Musculoskeletal: + back pain; no neck pain, no radicular pain, no joint pain and no myalgia Integumentary: no rash and no lesions Neurologic: no gait abnormality, no localized weakness, no generalized weakness, no tingling, no numbness, no tremor(s), no abnormal movements, no headache(s), no abnormal speech, no confusion and no memory loss Psychiatric: no depression, no irritability, no anxiety, no difficulty concentrating, no confusion and no hallucinations Endocrine: + fatigue; no flushing Hematologic / Lymphatic: no easy bleeding and no easy bruising Allergy / Immunological: no urticaria and no problem reported Physical Exam Physical Exam: The patient is right-handed. The patient is awake, alert, and attentive. Speech is normal without any aphasia or dysarthria. he can name objects, repeat phrases, and has normal spontaneous speech. Mentation and thought processes are intact, with orientation to person, place and time, and normal fund of knowledge. Attention and concentration are normal. Mood and affect are normal and appropriate. General appearance and grooming are normal. Short and long-term memory seem intact to conversation. The discs are sharp with positive venous pulsations bilaterally. There are no exudates, hemorrhages, or blood vessel changes seen. Pupils are 4 mm bilaterally and reactive to light. Extraocular eye muscles are intact without nystagmus. Visual acuity and visual obrien seem normal grossly to confrontation. There are no deficits to sensation in the face in all 3 distributions of the fifth cranial nerve bilaterally. Corneal reflexes are positive bilaterally. Facial strength and symmetry was normal bilaterally. Hearing is decreased to conversation bilaterally. Palate moves well without asymmetry. There is normal sternocleidomastoid and trapezius (shoulder shrug) strength bilaterally. Tongue is midline with good strength bilaterally. Neck has a full range of motion without discomfort. There are no cervical bruits bilaterally. There are no cranial or ocular bruits. Heart is without murmur. There is a regular rhythm and rate. Cervical and thoracic are nontender to palpation. He has some mild tenderness to palpation in his lumbar spine. Gait is not tested but his stance sitting up in bed is good. With outstretched arms there is no drift. There are no resting, postural, or action tremors. There is no ataxia with finger to nose testing. There is good facility in the hands. No other abnormal involuntary movements are noted. Motor strength is 5/5 diffusely in the arms bilaterally including deltoids, biceps, triceps, brachioradialis, wrist flexors and extensors, staff internist office based only, and intrinsic hand muscles. Motor strength is 5/5 diffusely in the legs bilaterally including hip flexors, quadriceps, hamstrings, gastrocnemius, tibialis anterior, tibialis posterior, and Peroneii muscles. Toe extensors are normal and there is good bulk in the extensor digitorum brevis muscles bilaterally. The limbs have good tone without rigidity or spasticity. There is no atrophy n oted in the muscles. Muscle bulk is normal, there is no tenderness to palpation, no myotonia to percussion, and no fasciculations seen. Sensory examination is intact to touch and pin throughout all 4 limbs diffusely. Reflexes are 1/4 in the biceps, triceps, brachioradialis, quadriceps, and Achilles tendons bilaterally. There is no clonus bilaterally. Toes are downgoing with plantar stimulation bilaterally. Peripheral pulses are present and of normal quality distally in all 4 limbs. There is no peripheral edema noted in the limbs. Results & Data Vital Signs (Past 12 Hours) Vital Signs Temp Pulse Pulse Pulse Resp BP BP 12/11/18 07:23 36.5 C 60 19 116/76 12/11/18 07:04 89 16 12/11/18 07:00 102 H 12/11/18 03:19 36.6 C 83 19 109/76 12/11/18 01:41 105 H 24 12/11/18 00:09 103 H 20 12/10/18 23:27 36.5 C 109 H 19 133/83 Pulse Ox 12/11/18 07:23 94 12/11/18 07:04 94 12/11/18 07:00 12/11/18 03:19 96 12/11/18 01:41 91 12/11/18 00:09 93 12/10/18 23:27 96 Diagnostic Findings Brain MRI WITH AND WITHOUT CONTRAST HISTORY: right sided weakness TECHNIQUE: Multiplanar multisequence MRI of the brain was performed both before and after the intravenous administration of contrast. COMPARISON STUDY: Brain MRI 02/09/2018. FINDINGS: Mild motion artifact. No areas of restricted diffusion to suggest acute infarction. The midline structures appear grossly intact. The major vascular flow voids at the skull base are well-maintained. The ventricles and sulci are within normal limits. The paranasal sinuses and mastoid air cells are clear. The orbits are unremarkable. There is no mass, hematoma, midline shift. No significant change in the mild periventricular and subcortical white matter T2 hyperintensity. No abnormal enhancement. IMPRESSION: 1. No acute intracranial abnormality. 2. No significant change in the T2 hyperintense foci within the periventricular and subcortical white matter. This is nonspecific but considered abnormal for the patient's age age and can be seen in the setting of multiple sclerosis, Lyme disease, or migraines. Clinical correlation recommended. Electronically signed by: Andrea Bear M.D. 12/10/2018 9:47 PM PG Care Time/CCT Total # of Minutes Spent Total Time Spent with Patient: Total time spent is greater than 50% in coordination of care (as documented) at patient's floor/unit and/or counseling patient: (1) Hypertension Hypertension type: unspecified Qualified Code(s): I10 - Essential (primary) hypertension
--- NOTE | 2018-12-11 11:55 | Pulmonology Progress Note ---
Date of Service December 11, 2018 Assessment & Plan (1) Hemoptysis: -- Hemoptysis Resolved Multifactorial secondary to aggressive coughing which has been going on since more than a week likely secondary to underlying exacerbation of heart failure, patient also has an enlarged left atrium which may be causing irritation of laryngeal nerve leading to cough. Patient also has underlying asthma although I am skeptical that this is asthma related. Patient's hemoglobin is stable. If there is drop in hemoglobin we need to stop aspirin and Lovenox. Patient has been started on antitussive medication. Patient is allergic to a lot of medication. Case discussed with pharmacy and they agree with guaifenesin and dextromethorphan for patient's cough. Treat underlying heart failure with diuresis as per cardiology. Continue with inhaled therapy for asthma. No further intervention from pulmonary perspective. Needs pulmonary follow-up as an outpatient. Recall if needed. -- MARIELENA with morbid obesity Patient had a sleep apnea machine at home but it was taken away as per the patient in July 2018 after repeat sleep study Looking at patient's habitus Mallampati score 4 daytime somnolence and history of congestive heart failure which puts the patient at Sadiq-Han breathing. Patient will benefit from CPAP/BiPAP nightly and as needed shortness of breath. AB.5/30/77/96% on room air on 12/09/2018 Patient needs sleep study as soon as possible as an outpatient. Patient is to follow-up with pulmonary/sleep on discharge. Patient will benefit from bariatric surgery. Importance of weight loss explained to the patient. -- History of asthma Not an exacerbation Patient is on Combivent at home as needed. Patient needs outpatient PFTs. Continue with Brovana and budesonide nebulized while the patient is in the hospital. On discharge patient can be given Budesonide(ICS) inhaled BID. (2) Acute on chronic combined systolic and diastolic CHF (congestive heart failure): (3) Morbid obesity: (4) Nonischemic cardiomyopathy: (5) Obstructive sleep apnea: Subjective Patient seen and examined at bedside. No acute distress, no adverse events overnight. Yesterday patient had numbness in the left side for which she had an MRI which showed no acute disease. Patient denies any shortness of breath, no more cough, no hemoptysis, no chest pain, no headache, no nausea, no vomiting. Has been compliant with his BiPAP one in the hospital. Tolerating diet. No diarrhea, no dysuria. Review of Systems Review of Systems: All systems reviewed & are unremarkable except as noted in HPI & below Physical Exam Physical Exam: Constitutional: No acute distress HEENT: EOMI, PERRLA, status post uvulectomy, Mallampati score 4 Respiratory system: Distant breath sounds bilaterally, no wheeze, no rhonchi, no crackles CVS: S1-S2 positive, no murmurs or gallops, accentuated P2 Abdomen: Soft, nontender, nondistended, positive bowel sounds x4, obese Extremities: +2 pulses bilaterally radialis/ dorsalis pedis, +1 edema bilateral lower extremity, no cyanosis, positive varicosities bilateral lower extremity Neuro: Awake alert oriented x3 Psych: Normal mood and affect G/U: No [place] Lymphatic: no cervical or axillary lymphadenopathy Results & Data Vital Signs (Past 12 Hours) Vital Signs Temp Pulse Pulse Pulse Resp BP BP 12/11/18 11:27 36.5 C 18 131/85 12/11/18 07:23 36.5 C 60 19 116/76 12/11/18 07:04 89 16 12/11/18 07:00 102 H 12/11/18 03:19 36.6 C 83 19 109/76 12/11/18 01:41 105 H 24 12/11/18 00:09 103 H 20 Pulse Ox 12/11/18 11:27 96 12/11/18 07:23 94 12/11/18 07:04 94 12/11/18 07:00 12/11/18 03:19 96 12/11/18 01:41 91 12/11/18 00:09 93 12/11/18 06:57 12/11/18 06:57 PG Care Time/CCT Total # of Minutes Spent Total Time Spent with Patient: Total time spent is greater than 50% in coordination of care (as documented) at patient's floor/unit and/or counseling patient:
--- NOTE | 2018-12-11 18:02 | Hospitalist Progress Note ---
Date of Service December 11, 2018 Assessment & Plan (1) Acute on chronic systolic (congestive) heart failure: Patient eager to go home. Discussed with neurology and cardiology in both [place] patient to be discharged. Continue patient home medicine in addition to Spironolactone 25 mg p.o. daily as discussed with cardiology. Patient is currently encouraged to take aspirin 81 daily. Continue Entresto, hydralazine 100 mg BID, metolazone 5 my BID, metoprolol succinate 200 mg QAM Patient should have sleep study done as an outpatient, PFT as per pulmonary recommendations. (2) Nonischemic cardiomyopathy: Most recent 2D echo with LVEF = 50-55% in Oct 2018 Continue medications as above Likely secondary to hypertension (3) Hypoxia: Likely due to CHF exacerbation as above Check CTPE to r/o thromboembolic disease Unsure as to why the patient no longer has CPAP/BiPAP as he requires this for MARIELENA, recommend follow-up with Olga Banuelos with pulmonology as outpatient, will order bipap now Continue supplemental O2 prn, typically does no require this as outpatient (4) Hemoptysis: Ongoing as per pt report, has cough with small amount of pink sputum. No blood seen in it. He previously had bronchoscopy for this which was completed by Dr. Murray in May 2018, no obvious etiology was found, it was thought that this was a result of malignant hypertension and CHF and was suggested that he could be compliant with BiPAP therapy. Patient seen by pulmonary at this visit again, and conclusion is that patient does not have hemoptysis. Recommended sleep study, CPAP/BiPAP nightly, budesonide ICS inhaled twice daily, PFTs. (5) Hypertension: -Continue antihypertensive regimen as above -IV labetalol as needed SBP >160 or DBP >110 (6) Dyslipidemia: -not on statin, last lipid panel in Spring 2018 showed total cholesterol of 171. Diet and exercise encouraged as above (7) Diabetes mellitus, type II: A1C = 7.4 on 10/31/18, no need to recheck ISS with accuchecks [facility] Glycemic pharmacy consulted HH/DM Diet ordered (8) Peripheral neuropathy: Secondary to DM type II (9) Obstructive sleep apnea: order BiCPAP at bedtime , noncompliance/not wearing this likely contributing to hypoxia (10) Obesity hypoventilation syndrome: (11) COPD (chronic obstructive pulmonary disease): Continue ipratropium inhaler as needed, Order BiPAP at bedtime Supplemental O2 Follows with Olga Banuelos as outpatient, will need f/u upon discharge (12) Morbid obesity: BMI equals 55 Discussion was held regarding eating whole and unprocessed food, no sugar, no extra carbs, no soda etc at bedside. Exercise was encouraged however that is very difficult for the patient given his current respiratory status. Continue to encourage upon discharge. HH/DM diet (13) GERD (gastroesophageal reflux disease): Stable, patient avoids acidic foods which seems to help (14) Vitamin D insufficiency: Continue supplementation (15) Depression with anxiety: Patient uses coping mechanisms, is not on any medication (16) DVT prophylaxis: SCDs,Discussed with Dr. Houston who did bronchoscopy on the pt 05/31 and he recommended to start Lovenox for DVT ppx. Code: Full code Dispo: From home, likely to remain in the hospital at least 1 night (17) Acute kidney insufficiency: Avoid nephrotoxic agents. Hold Furosemide 80 mg IV for now. Subjective Seen and examined at the bedside. Patient feeling improved. He is at his good weight now at 340 pounds. Telemetry reveals sinus rhythm in the range of 89 bpm with occasional PVCs no significant arrhythmia. Patient had episode of numbness and tingling of the left side of the face yesterday and left-sided weakness which was in the evening of December 10 and which resolved when he was hooked up to his BiPAP machine. Patient was seen by neurology and there was no concern in the morning that patient had any focal neurological deficit, meningeal signs on or encephalopathy. MRI of the brain show no acute changes with and without contrast. Patient has very mild old small vessel ischemic disease seen unchanged back from the series in 2014. Patient is going to follow-up with neurology in 1 to 2 weeks. Review of Systems Review of Systems: All systems reviewed & are unremarkable except as noted in HPI & below Physical Exam Constitutional: WD/WN, vitals as above well developed and + morbidly obese Eyes: PERRL, conjunctivae normal, anicteric sclerae ENMT: external ear and nose normal, oropharynx normal Neck: trachea midline, no thyromegaly Respiratory: Auscultation: + crackles and + wheezes Cardiovascular: Vessels: dorsalis pedis pulses present Extremities: + pedal edema and + edema Gastrointestinal (Abdomen): normal bowel sounds, soft, nontender, no hepatosplenomegaly Musculoskeletal: no cyanosis or clubbing, extremities motor strength 5/5 Skin: no rashes, warm and dry Neurologic: patellar DTR's 2+ bilat, sensation intact Psychiatric: A+Ox3, euthymic affect Lymphatic: no cervical or axillary lymphadenopathy Results & Data Vital Signs (Past 12 Hours) Vital Signs Temp Pulse Pulse Pulse Resp BP BP 12/11/18 13:22 36.5 C 89 60 18 131/85 109/76 12/11/18 11:27 36.5 C 18 131/85 12/11/18 07:23 36.5 C 60 19 116/76 12/11/18 07:04 89 16 12/11/18 07:00 102 H Pulse Ox 12/11/18 13:22 96 12/11/18 11:27 96 12/11/18 07:23 94 12/11/18 07:04 94 12/11/18 07:00 PG Care Time/CCT Total # of Minutes Spent Total Time Spent with Patient: Total time spent is greater than 50% in coordination of care (as documented) at patient's floor/unit and/or counseling patient: (1) Hypertension Hypertension type: unspecified Qualified Code(s): I10 - Essential (primary) hypertension (2) Diabetes mellitus, type II 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 mellitus superintendent container terminal insulin use: with superintendent container terminal use Diabetes mellitus complication status: with other specified complication Qualified Code(s): E11.69 - Type 2 diabetes mellitus with other specified complication; Z79.4 - long-term (current) use of insulin (3) COPD (chronic obstructive pulmonary disease) COPD type: unspecified COPD Qualified Code(s): J44.9 - Chronic obstructive pulmonary disease, unspecified (4) GERD (gastroesophageal reflux disease) Esophagitis presence: without esophagitis Qualified Code(s): K21.9 - Gastro- esophageal reflux disease without esophagitis
--- NOTE | 2018-12-11 18:04 | Discharge Summary ---
Date of Service December 11, 2018 Admission HPI Per Admitting Provider This is a 42 yo M with PMHx of chronic systolic CHF, nonischemic cardiomyopathy, DM II, HTN, HLD, MARIELENA on bipap, COPD, GERD, vitamin D deficiency, anxiety, depression, and morbid obesity with BMI of 55, who presents with shortness of breath and pulmonary edema as seen on CXR for CHF exacerbation which worsened since he left AMA on 11/26/18. Patient reports that his main complaint today is worsening breathing over the past week as well as hemoptysis which has been ongoing for some time. He reports coughing up small dark red clots of mucus, never bright red. He has been needing to sleep sitting straight up, and has orthopnea with an level of lying back. He does not wear O2 at baseline. He reports he recently was taken off CPAP/BiPAP because he did not meet study requirements, therefore is no longer using this at night. He reports that he does not eat salt at all when asked about his diet. He reports eating healthy choice meals which have been covered by his insurance, and is sent 21 meals per week. He tells me he was recommended to eat 4 meals per day. He states that his main fluid intake consists of Sprite 0, and that he gags on water although he tries to drink 3 glasses of water per day. He does not exercise routinely. Pt is well-known to our cardiology team and CHF clinic. Patient notes that he has been taking his medications as directed, but reports he does not take his diuretic on days where he is required to go to appointments during the day because he does not want to need to urinate as much. As per outpatient notes it seems that he is very nonadherent to treatment recommendations and noncompliant with medications. Here Pro-BNP > 3000. BP is elevated at 180/110 and HR =110s at bedside. Principal Diagnosis none Discharge Exam Constitutional WD/WN, vitals as above well developed and + morbidly obese Eyes PERRL, conjunctivae normal, anicteric sclerae ENMT external ear and nose normal, oropharynx normal Neck trachea midline, no thyromegaly Respiratory Auscultation: + crackles and + wheezes Cardiovascular Vessels: dorsalis pedis pulses present Extremities: + pedal edema and + edema Gastrointestinal (Abdomen) normal bowel sounds, soft, nontender, no hepatosplenomegaly Musculoskeletal no cyanosis or clubbing, extremities motor strength 5/5 Skin no rashes, warm and dry Neurologic patellar DTR's 2+ bilat, sensation intact Psychiatric A+Ox3, euthymic affect Lymphatic no cervical or axillary lymphadenopathy Discharge Data Allergies Allergy/AdvReac Type Severity Reaction Status Date / Time ceftriaxone Allergy Severe SHORTNESS Verified 12/08/18 14:48 OF BREATH lidocaine Allergy Severe SHORTNESS Verified 12/08/18 14:48 OF BREATH, diaphoretic, hives procaine Allergy Severe SHORTNESS Verified 12/08/18 14:48 OF BREATH, diaphoretic, hives amoxicillin Allergy Intermediate HIVES/FACIAL Verified 12/08/18 14:48 SWELLING lisinopril Allergy Intermediate HIVES Verified 12/08/18 14:48 albuterol Allergy Mild proair Verified 12/08/18 14:48 "trouble taking breaths" clavulanic acid Allergy Unknown . Verified 12/08/18 14:48 acetaminophen AdvReac Mild NAUSEA Verified 12/08/18 14:48 Consultations 12/08/18 15:46 ED Decision to Admit Stat 12/08/18 16:23 Consult Case Management - Discharge Planning Routine 12/09/18 15:43 Consult Cardiology Routine 12/09/18 16:39 Consult Pulmonology Routine 12/11/18 03:09 Consult Neurology Routine Ordered Studies 12/08/18 17:31 CT angio chest PE protocol Stat 12/10/18 20:40 MR brain wo/w con Stat Hospital Course (1) Acute on chronic systolic (congestive) heart failure: Patient eager to go home. Discussed with neurology and cardiology in both [place] patient to be discharged. Continue patient home medicine in addition to Spironolactone 25 mg p.o. daily as discussed with cardiology. Patient is currently encouraged to take aspirin 81 daily. Continue Entresto, hydralazine 100 mg BID, metolazone 5 my BID, metoprolol succinate 200 mg QAM Patient should have sleep study done as an outpatient, PFT as per pulmonary recommendations. (2) Nonischemic cardiomyopathy: Most recent 2D echo with LVEF = 50-55% in Oct 2018 Continue medications as above Likely secondary to hypertension (3) Hypoxia: Likely due to CHF exacerbation as above Check CTPE to r/o thromboembolic disease Unsure as to why the patient no longer has CPAP/BiPAP as he requires this for MARIELENA, recommend follow-up with Olga Banuelos with pulmonology as outpatient, will order bipap now Continue supplemental O2 prn, typically does no require this as outpatient (4) Hemoptysis: Ongoing as per pt report, has cough with small amount of pink sputum. No blood seen in it. He previously had bronchoscopy for this which was completed by Dr. Murray in May 2018, no obvious etiology was found, it was thought that this was a result of malignant hypertension and CHF and was suggested that he could be compliant with BiPAP therapy. Patient seen by pulmonary at this visit again, and conclusion is that patient does not have hemoptysis. Recommended sleep study, CPAP/BiPAP nightly, budesonide ICS inhaled twice daily, PFTs. (5) Hypertension: -Continue antihypertensive regimen as above -IV labetalol as needed SBP >160 or DBP >110 (6) Dyslipidemia: -not on statin, last lipid panel in Spring 2018 showed total cholesterol of 171. Diet and exercise encouraged as above (7) Diabetes mellitus, type II: A1C = 7.4 on 10/31/18, no need to recheck ISS with accuchecks [facility] Glycemic pharmacy consulted HH/DM Diet ordered (8) Peripheral neuropathy: Secondary to DM type II (9) Obstructive sleep apnea: order BiCPAP at bedtime , noncompliance/not wearing this likely contributing to hypoxia (10) Obesity hypoventilation syndrome: (11) COPD (chronic obstructive pulmonary disease): Continue ipratropium inhaler as needed, Order BiPAP at bedtime Supplemental O2 Follows with Olga Banuelos as outpatient, will need f/u upon discharge (12) Morbid obesity: BMI equals 55 Discussion was held regarding eating whole and unprocessed food, no sugar, no extra carbs, no soda etc at bedside. Exercise was encouraged however that is very difficult for the patient given his current respiratory status. Continue to encourage upon discharge. HH/DM diet (13) GERD (gastroesophageal reflux disease): Stable, patient avoids acidic foods which seems to help (14) Vitamin D insufficiency: Continue supplementation (15) Depression with anxiety: Patient uses coping mechanisms, is not on any medication (16) DVT prophylaxis: SCDs,Discussed with Dr. Houston who did bronchoscopy on the pt 05/31 and he recommended to start Lovenox for DVT ppx. Code: Full code Dispo: From home, likely to remain in the hospital at least 1 night (17) Acute kidney insufficiency: Avoid nephrotoxic agents. Hold Furosemide 80 mg IV for now. Total Time Total Time Spent Total Time Spent (In Minutes): over 30 min Discharge Plan Discharge Items Patient Disposition: Home - Home Health Services Reason For Visit: CHF EXACERBATION Discharge Diagnosis: acute CHF exacerbation, sleep apnea Activity: Resume your previous activity Lifting: Gradually increase as tolerated Non-emergency contact: Primary Care Provider, Index Clerk and Slate Roofer Call non-emergency contact if: you have any medication questions and your symptoms worsen Follow-up/Referrals: [facility] [Other] - 01/29/19 9:00 pm (Please, follow up at [facility] on SundayJanuary 29 at 9:00 pm. *The clinic is located at [address] [place] [address] in [place]. If you need to change this appointment, call central scheduling at [phone].) [facility] [Provider Group] - 12/24/18 1:00 pm (Please, follow up at [facility] on SundayDecember 24 at 1:00 pm for pulmonary function testing. *The office is located in [address] of [facility]. If you need to change this appointment, call the office at [phone].) Ilir Qureshi MD [Primary Care Provider] - 12/18/18 11:00 am (Please, follow up at Dr. Qureshi's office with his associate, Asuncion Delvalle, on SundayDecember 18 at 11:00 am. *If you need to change this appointment, call the office at [phone].) Diet: Carb Consistent or DM2, Heart Healthy and Low Sodium (2gm) Addtl Attending Provider Instructions: Follow up with PCP in 1 week with CBC abnd CMP. Follow up with cardiology in 1-2 weeks. Follow up with PFT and sleep study. Our spring encaser will call you. Pending Studies at Discharge: No Stand-Alone Forms: My [employer], Smoking Cessation Medications and DC Order Prescriptions: New spironolactone 25 mg Tablet 25 mg PO QAM Qty: 30 RF: 0 nitroglycerin [Nitrostat] 0.4 mg Tablet, Sublingual 0.4 mg sublingual UD PRN (Reason: chest pain) Qty: 100 RF: 0 budesonide 0.25 mg/2 mL Suspension For Nebulization 0.25 mg NEB Q12 Qty: 60 RF: 0 Continued Humalog Mix 50-50 KwikPen 100 unit/mL (50-50) insulin pen 40 units SQ BID RF: 0 Trulicity 1.5 mg/0.5 mL pen injector 1.5 mg SQ WEEKLY RF: 0 metoprolol succinate 200 mg tablet extended release 24 hr 200 mg PO QAM RF: 0 esomeprazole magnesium [Nexium] 20 mg capsule,delayed release(DR/EC) 20 mg PO BID RF: 0 hydralazine 100 mg tablet 100 mg PO BID Qty: 180 RF: 3 metolazone 5 mg tablet 5 mg PO BID PRN (Reason: Edema) Qty: 12 RF: 0 torsemide 20 mg tablet 60 mg PO BID Qty: 60 RF: 1 aspirin [Aspirin Low Dose] 81 mg tablet,delayed release (DR/EC) 81 mg PO QAM RF: 0 cetirizine [Zyrtec] 10 mg tablet 10 mg PO QAM RF: 0 Combivent Respimat 20-100 mcg/actuation mist 1 puff INHALATION Q6H PRN (Reason: Shortness Of Breath Or Wheezing) RF: 0 cholecalciferol (vitamin D3) [Vitamin D3] 1,000 unit capsule 2,000 units PO BID RF: 0 Entresto 97-103 mg tablet 1 tab PO BID Qty: 60 RF: 0 Discharge Orders: Discharge Order (Routine); Ordered 12/11/18 Ordered By: Anu Lee Admission Data Admit Date/Time: 12/10/18 07:25 Attending Provider: Anu Lee Admit Provider: Anu Lee Primary Care Provider: Ilir Qureshi Other Providers: [facility] ; Vick Benoit ; Prince Hurley ; Anu Lee ; Hector Leon III Other Interventions: Discharge Summary Assessment (RN) Last Done: 12/11/18 13:22 DC Date/Time DO NOT enter until pt leaves facility: 12/11/18 13:41
--- NOTE | 2018-12-25 07:20 | Coding Query ---
CODING QUERY To promote full compliance with coding requirements relating to patient care, provider participation is requested in all cases of linux unix administrator uncertainty. Please assist us with the question(s) below: Coding Question(s): The Discharge Summary documents Acute on Chronic Systolic CHF, and the Cardiology Consultation documents Acute on Chronic Combined Systolic and Diastolic CHF. Due to the conflicting documentation, please specify below, in your clinical opinion. ( ) Acute on Chronic Systolic CHF ( X) Acute on Chronic Combined Systolic and Diastolic CHF ( ) Other: Please Specify Physician's Response(s): Acute on chronic combined Systolic and Diastolic CHF Thank you Tiana Romano Principal Diagnosis: "that condition established after study, to be chiefly responsible for occasioning the admission of the patient to the hospital for care." Co-Existing Principal Diagnosis: "when two or more diagnoses equally meet the criteria for principal diagnosis as determined by the circumstances of admission, diagnostic work up, and/or therapy provided, and the Alphabetic Index, Tabular List, or another coding guideline does not provide sequencing direction, any one of the diagnoses may be sequenced first." "When the physician has documented what appears to be a current diagnosis in the body of the record, but has not included the diagnosis in the final diagnostic statement, the physician should be asked whether the diagnosis should be added." (Source Coding [facility] 2 QTR90. p3-4) SARITA
== END 2018-12-11 13:41 | disposition home health service (06) | DRG 292 ==
LOC: ED 13:16 → 2S 13:16

== ENCOUNTER 2018-12-19 23:34 | Inpatient (IN) ==
[2018-12-20] MEDS ORDERED: HydrALAZINE HCL 20 MG/ML VIAL IV STA ×2 (00:01→01:19)
[2018-12-20] MEDS ORDERED: FUROSEMIDE 40 MG/4 ML VIAL IV STA (00:01)
[2018-12-20 00:23] LABS: Basophils # (auto) 0.01 K/uL (0-0.2); Basophils % (auto) 0.1 %; Eosinophils # (auto) 0.08 K/uL (0-0.5); Eosinophils % (auto) 0.7 %; Hematocrit (blood only) 41.3 % (42-52); Hemoglobin 14.2 g/dL (14.0-18.0); Immature Granulocytes # (auto) 0.03 K/uL (0.00-0.02); Immature Granulocytes % (auto) 0.3 %; Lymphocytes # (auto) 2.15 K/uL (1.2-3.4); Lymphocytes % (auto) 18.2 %; Mean Corpuscular Hemoglobin 29.2 pg (25-34); Mean Corpuscular Hgb Conc 34.4 g/dL (32-36); Mean Platelet Volume 10.3 fL (7.4-10.4); Monocytes # (auto) 0.67 K/uL (0.11-0.59); Monocytes % (auto) 5.7 %; Neutrophils # (auto) 8.88 K/uL (1.4-6.5); Platelet Count 173 K/uL (130-400); RDW Coefficient of Variation 14.8 % (11.5-14.5); RDW Standard Deviation 45.8 fL (36.4-46.3); Red Blood Count 4.86 M/uL (4.7-6.1); White Blood Count 11.82 K/uL (4.8-10.8)
[2018-12-20 00:29] LABS: Base Excess VBG 0.4 mEq/L; pH VBG 7.42 (7.36-7.41)
[2018-12-20 00:31] LABS: Albumin Level 3.5 gm/dl (3.4-5.0); BUN Creatinine Ratio 12.2 (10-20); Calcium 8.8 mg/dl (8.5-10.1); Creatinine Clr Calc Pharmacy 130.2 ml/min; Est GFR (African American) 87.7; Est GFR (Non-African American) 75.7
[2018-12-20] MEDS ORDERED: MoRPHine SULFATE 2 MG/ML CARP IV STA (00:31)
[2018-12-20 00:33] LABS: Prothrombin Time 10.7 Seconds (9.0-12.0)
[2018-12-20 00:34] LABS: Albumin Globulin Ratio 0.9 (0.9-2); Bilirubin,Total 0.7 mg/dl (0.2-1); Globulin 3.9 gm/dl (2.5-4.0); Total Protein 7.4 gm/dl (6.4-8.2)
--- NOTE | 2018-12-20 00:38 | Emergency Department Note ---
Entered by Chrystal Flynn acting as a scribe for Kan Ya DO History of Present Illness General Chief complaint: Shortness of Breath/Dyspnea Stated complaint: SHORT OF BREATH/CHEST PAIN/BACK PAIN Time Seen by Provider: 12/19/18 23:44 Source: patient History of Present Illness Onset (ago): day(s) 3 Location: abdomen Radiation: back Pain Consistency: + constant Exacerbated By: + movement Associated symptoms: + cough, + loss of appetite, + shortness of breath, + weakness and + other (coughing up blood) Treatments prior to arrival: other (breathing treatment) The patient is a 43 year old male who presents to the Emergency Room with complaints of shortness of breath which began about 3 days ago. He states he has been having difficulty breathing due to pain in his abdominal area that radiates to his back. He reports that tonight, he could not get out of the tub by himself due to his pain. He was unable to grab onto the bar to lift himself up, and his had to help him out. The patient states that he has been taking a breathing treatment regularly since his last doctors visit, as well as taking cough medicine. He reports that he spit up some blood in the ambulance on the way here. He denies using oxygen at home. He notes that he has been experiencing a decreased appetite as well as weakness. Home Medications Home Medications Medication Instructions Recorded Confirmed Type Entresto 1 tab PO BID #60 tab 08/19/18 12/20/18 Rx insulin lispro protamine-lispro 40 units SQ BID ml 08/28/18 12/20/18 History 100 unit/mL (50-50) subcutaneous pen esomeprazole magnesium 20 mg 20 mg PO BID cap 09/05/18 12/20/18 History capsule,delayed release ipratropium 20 mcg-albuterol 100 1 puff INHALATION Q6H PRN 09/05/18 12/20/18 His tory mcg/actuation mist for inhalation aspirin 81 mg tablet,delayed 81 mg PO QAM 09/17/18 12/20/18 History release cholecalciferol (vitamin D3) 1,000 2,000 units PO BID cap 09/17/18 12/20/18 History unit capsule cetirizine [Zyrtec] 10 mg PO QAM 10/25/18 12/20/18 History metoprolol succinate ER 200 mg 200 mg PO QAM tab 11/11/18 12/20/18 History tablet,extended release 24 hr dulaglutide 1.5 mg/0.5 mL 1.5 mg SQ WEEKLY ml 11/12/18 12/20/18 History subcutaneous pen injector hydralazine 100 mg tablet 100 mg PO BID #180 tab 11/14/18 12/20/18 Rx metolazone 5 mg tablet 5 mg PO BID PRN #12 tab 11/14/18 12/20/18 History torsemide 20 mg tablet 60 mg PO BID #60 tab 11/14/18 12/20/18 Rx budesonide 0.25 mg NEB Q12 #60 ml 12/11/18 12/20/18 Rx nitroglycerin [Nitrostat] 0.4 mg SUBLINGUAL UD PRN #100 tab 12/11/18 12/20/18 Rx spironolactone 25 mg PO QAM #30 tab 12/11/18 12/20/18 Rx Allergies Allergy/AdvReac Type Severity Reaction Status Date / Time ceftriaxone Allergy Severe SHORTNESS Verified 12/20/18 00:34 OF BREATH lidocaine Allergy Severe SHORTNESS Verified 12/20/18 00:34 OF BREATH, diaphoretic, hives procaine Allergy Severe SHORTNESS Verified 12/20/18 00:34 OF BREATH, diaphoretic, hives amoxicillin Allergy Intermediate HIVES/FACIAL Verified 12/20/18 00:34 SWELLING lisinopril Allergy Intermediate HIVES Verified 12/20/18 00:34 albuterol Allergy Mild proair Verified 12/20/18 00:34 "trouble taking breaths" clavulanic acid Allergy Unknown . Verified 12/20/18 00:34 acetaminophen AdvReac Mild NAUSEA Verified 12/20/18 00:34 Past Med/Surg History Medical History Morbid obesity (Chronic) BMI> 50 Sinus bradycardia Acute on chronic systolic (congestive) heart failure (Chronic) Nonischemic cardiomyopathy Peripheral neuropathy (Chronic) 2/2 DM type II. Located on the feet bilaterally. Not requiring medication. 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 Difficult to manage. Integrated into heart failure clinic. Frequent admissions for heart failure exacerbations. Echo (05/31) EF=25-30% with mod to severe global hypokinesis, basal kelsi-septal akinetic wall, LVH, RVSP elevated at 30-40mmHg, and mod dilated ascending aorta. Managed medically with ASA + BB + ARB/Neprilysin inhibitor (Entresto) + high dose furosemide (160mg BID) + metolazone (3x weekly). Considering ICD given EF. 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) Lung nodule (Acute) Dyslipidemia (Acute) Depression with anxiety (Acute) Cluster headache (Acute) Carpal tunnel syndrome (Acute) Bilateral knee pain (Acute) Hemoptysis GERD (gastroesophageal reflux disease) COPD (chronic obstructive pulmonary disease) (Chronic) Acquired claw toe of left foot (Acute) Acquired claw toe of right foot (Acute) Diabetes mellitus with diabetic polyneuropathy (Acute) Back pain (Resolved) Learning disability (Resolved) Cognitive impairment DM II (diabetes mellitus, type II), controlled Depression Fatty liver GERD (gastroesophageal reflux disease) HTN (hypertension) Medical non-compliance Morbid obesity with BMI of 50.0-59.9, adult Nonischemic cardiomyopathy EF 30-35% MARIELENA (obstructive sleep apnea) Does not comply with CPAP Surgical History History of carpal tunnel surgery History of cholecystectomy S/P tonsillectomy Family History Father , age 57 of an NM. 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 and A total of 10 systems reviewed and were otherwise negative Physical Exam Vital Signs Vital Signs - 24 hr 12/19/18 23:39 12/19/18 23:40 12/19/18 23:41 Temperature 36.7 C Temperature Source Oral Sepsis Recent Fever Within 48 Hours No Sepsis Action Taken by Nursing No Action Required Oxygen Flow Rate - Titration Pulse Oximetry Post Tiitration Pulse Rate 112 H 124 H 117 H Pulse Rate from SpO2 Sensor 118 H Pulse Rhythm Regular Pulse Strength Normal Respiratory Rate 19 19 Respiratory Effort / Characteristics Labored Respiratory Depth Normal Respiratory Pattern Regular Blood Pressure 207/135 H 182/151 H Blood Pressure Mean 159 161 Blood Pressure Position Lying Pulse Oximetry 88 L 93 Oxygen Delivery Method Room Air Nasal Cannula Oxygen Flow Rate 4 4 12/19/18 23:50 12/19/18 23:58 12/20/18 00:00 Temperature Temperature Source Sepsis Recent Fever Within 48 Hours Sepsis Action Taken by Nursing Oxygen Flow Rate - Titration 4 Pulse Oximetry Post Tiitration 95 Pulse Rate 114 H 114 H Pulse Rate from SpO2 Sensor 113 H 114 H Pulse Rhythm Pulse Strength Respiratory Rate 21 17 Respiratory Effort / Characteristics Respiratory Depth Respiratory Pattern Blood Pressure 207/135 H Blood Pressure Mean 159 Blood Pressure Position Pulse Oximetry 93 88 L 95 Oxygen Delivery Method Nasal Cannula Room Air Nasal Cannula Nasal Cannula Oxygen Flow Rate 4 0 4 12/20/18 00:13 12/20/18 00:15 12/20/18 00:16 Temperature Temperature Source Sepsis Recent Fever Within 48 Hours Sepsis Action Taken by Nursing Oxygen Flow Rate - Titration Pulse Oximetry Post Tiitration Pulse Rate 112 H 100 H 101 H Pulse Rate from SpO2 Sensor 101 H 100 H Pulse Rhythm Pulse Strength Respiratory Rate 25 H 26 H 24 Respiratory Effort / Characteristics Respiratory Depth Respiratory Pattern Blood Pressure 201/124 H Blood Pressure Mean 149 Blood Pressure Position Pulse Oximetry 96 95 97 Oxygen Delivery Method Nasal Cannula Nasal Cannula Oxygen Flow Rate 4 4 12/20/18 00:30 12/20/18 00:37 12/20/18 00:38 Temperature Temperature Source Sepsis Recent Fever Within 48 Hours Sepsis Action Taken by Nursing Oxygen Flow Rate - Titration Pulse Oximetry Post Tiitration Pulse Rate 113 H 117 H 110 H Pulse Rate from SpO2 Sensor 115 H 118 H 111 H Pulse Rhythm Pulse Strength Respiratory Rate 15 38 H 33 H Respiratory Effort / Characteristics Respiratory Depth Respiratory Pattern Blood Pressure 179/140 H 171/119 H Blood Pressure Mean 153 136 Blood Pressure Position Pulse Oximetry 96 96 95 Oxygen Delivery Method Oxygen Flow Rate 12/20/18 01:00 12/20/18 01:01 12/20/18 01:06 Temperature Temperature Source Sepsis Recent Fever Within 48 Hours Sepsis Action Taken by Nursing Oxygen Flow Rate - Titration Pulse Oximetry Post Tiitration Pulse Rate 120 H 121 H 108 H Pulse Rate from SpO2 Sensor 116 H 122 H 113 H Pulse Rhythm Pulse Strength Respiratory Rate 16 34 H 25 H Respiratory Effort / Characteristics Respiratory Depth Respiratory Pattern Blood Pressure 175/133 H 181/129 H Blood Pressure Mean 147 146 Blood Pressure Position Pulse Oximetry 93 97 95 Oxygen Delivery Method Oxygen Flow Rate 12/20/18 01:07 12/20/18 01:08 12/20/18 01:09 Temperature Temperature Source Sepsis Recent Fever Within 48 Hours Sepsis Action Taken by Nursing Oxygen Flow Rate - Titration Pulse Oximetry Post Tiitration Pulse Rate 114 H 113 H 101 H Pulse Rate from SpO2 Sensor 114 H 110 H 105 H Pulse Rhythm Pulse Strength Respiratory Rate 22 14 21 Respiratory Effort / Characteristics Respiratory Depth Respiratory Pattern Blood Pressure Blood Pressure Mean Blood Pressure Position Pulse Oximetry 96 95 96 Oxygen Delivery Method Oxygen Flow Rate 12/20/18 01:24 12/20/18 01:25 Temperature Temperature Source Sepsis Recent Fever Within 48 Hours Sepsis Action Taken by Nursing Oxygen Flow Rate - Titration Pulse Oximetry Post Tiitration Pulse Rate 106 H 105 H Pulse Rate from SpO2 Sensor 106 H 106 H Pulse Rhythm Pulse Strength Respiratory Rate 16 Respiratory Effort / Characteristics Respiratory Depth Respiratory Pattern Blood Pressure 201/118 H Blood Pressure Mean 145 Blood Pressure Position Pulse Oximetry 97 97 Oxygen Delivery Method Oxygen Flow Rate 4 CONSTITUTIONAL/VITAL SIGNS: Reviewed / noted above. GENERAL: Non-toxic in appearance. INTEGUMENTARY: Warm, dry, and [place]. HEAD: Normocephalic. EYES: without scleral icterus or trauma. ENT/OROPHARYNX: clear and moist. LYMPHADENOPATHY/NECK: Is supple without lymphadenopathy or meningismus. RESPIRATORY: Mild respiratory distress. CARDIOVASCULAR: Regular rate and rhythm. GI/ABDOMEN: Tenderness to palpation of RUQ. No organomegaly or pulsatile mass. No rebound or guarding. Normal bowel sounds. EXTREMITIES: Warm and well perfused. Lower extremity pedal edema. BACK: No CVA tenderness. NEUROLOGICAL: Intact without focal deficits. PSYCHIATRIC: normal affect. MUSCULOSKELETAL: Normally developed with good muscle tone. Course 2358: Past medical records reviewed. The patient was evaluated in room B04B. A complete history and physical exam was performed. 0011: The patient was administered 40 mg Lasix IV 0037: The patient was given Morphine sulfate for his pain. 0138: I spoke to Dr. Elizabeth regarding the patient, who agreed to take over his care. The patient verbally expressed understanding and agreement of the treatment plan. The patient will be evaluated for further treatment. Administered Medications Discontinued Medications Clonidine HCl (Catapres) 0.2 mg PO NOW ONE Stop: 12/20/18 01:20 Last Admin: 12/20/18 01:25 Dose: 0.2 mg Documented by: [id number] Furosemide (Lasix) 40 mg IV NOW STA Stop: 12/20/18 00:02 Last Admin: 12/20/18 00:11 Dose: 40 mg Documented by: [id number] Hydralazine HCl (Hydralazine Hcl) 10 mg IV NOW STA Stop: 12/20/18 00:02 Last Admin: 12/20/18 00:11 Dose: 10 mg Documented by: [id number] Hydralazine HCl (Hydralazine Hcl) 20 mg IV NOW STA Stop: 12/20/18 01:20 Last Admin: 12/20/18 01:24 Dose: 20 mg Documented by: [id number] Morphine Sulfate (Morphine Sulfate) 2 mg IV NOW STA Stop: 12/20/18 00:32 Last Admin: 12/20/18 00:37 Dose: 2 mg Documented by: [id number] Medical Decision Making Medical Records Attestation: I reviewed the patient's medical records. Home Medications Current Medication List: was personally reviewed by me Laboratory Data Attestation: I reviewed the patient's lab results. Result diagrams: 12/19/18 23:50 12/19/18 23:50 Lab Results 12/19/18 12/19/18 12/19/18 Range/Units 23:50 23:50 23:50 WBC 11.82 H (4.8-10.8) K/uL RBC 4.86 (4.7-6.1) M/uL Hgb 14.2 (14.0-18.0) g/dL Hct 41.3 L (42-52) % MCV 85.0 (80-100) fL MCH 29.2 (25-34) pg MCHC 34.4 (32-36) g/dL RDW Std Deviation 45.8 (36.4-46.3) fL RDW Coeff of Zoltan 14.8 H (11.5-14.5) % Plt Count 173 (130-400) K/uL MPV 10.3 (7.4-10.4) fL Immature Gran % (Auto) 0.3 % Neut % (Auto) 75.0 % Lymph % (Auto) 18.2 % [place] % (Auto) 5.7 % Eos % (Auto) 0.7 % Baso % (Auto) 0.1 % Immature Gran # (Auto) 0.03 H (0.00-0.02) K/uL Neut # (Auto) 8.88 H (1.4-6.5) K/uL Lymph # (Auto) 2.15 (1.2-3.4) K/uL [place] # (Auto) 0.67 H (0.11-0.59) K/uL Eos # (Auto) 0.08 (0-0.5) K/uL Baso # (Auto) 0.01 (0-0.2) K/uL PT 10.7 (9.0-12.0) Seconds INR 1.0 (0.9-1.1) VBG pH (7.36-7.41) VBG pCO2 (38-50) mmHg VBG pO2 mmHg VBG HCO3 mmol/L VBG O2 Saturation % VBG Base Excess mEq/L Barometric Pressure mm/Hg Sodium 141 (136-145) mmol/L Potassium 4.0 (3.5-5.1) mmol/L Chloride 110 H (98-107) mmol/L Carbon Dioxide 23 (21-32) mmol/L Anion Gap 8.0 (3-11) BUN 14 (7-18) mg/dl Creatinine 1.18 (0.6-1.4) mg/dl Est Cr Clr Drug Dosing 130.2 ml/min Est GFR ( Amer) 87.7 Est GFR (Non-Af Amer) 75.7 BUN/Creatinine Ratio 12.2 (10-20) Glucose 161 H (70-99) mg/dl Calcium 8.8 (8.5-10.1) mg/dl Total Bilirubin 0.7 (0.2-1) mg/dl AST 14 L (15-37) U/L ALT 22 (12-78) U/L Alkaline Phosphatase 93 (45-117) U/L Total Protein 7.4 (6.4-8.2) gm/dl Albumin 3.5 (3.4-5.0) gm/dl Globulin 3.9 (2.5-4.0) gm/dl Albumin/Globulin Ratio 0.9 (0.9-2) Lipase 142 (73-393) U/L 12/20/18 Range/Units 00:17 WBC (4.8-10.8) K/uL RBC (4.7-6.1) M/uL Hgb (14.0-18.0) g/dL Hct (42-52) % MCV (80-100) fL MCH (25-34) pg MCHC (32-36) g/dL RDW Std Deviation (36.4-46.3) fL RDW Coeff of Zoltan (11.5-14.5) % Plt Count (130-400) K/uL MPV (7.4-10.4) fL Immature Gran % (Auto) % Neut % (Auto) % Lymph % (Auto) % [place] % (Auto) % Eos % (Auto) % Baso % (Auto) % Immature Gran # (Auto) (0.00-0.02) K/uL Neut # (Auto) (1.4-6.5) K/uL Lymph # (Auto) (1.2-3.4) K/uL [place] # (Auto) (0.11-0.59) K/uL Eos # (Auto) (0-0.5) K/uL Baso # (Auto) (0-0.2) K/uL PT (9.0-12.0) Seconds INR (0.9-1.1) VBG pH 7.42 H (7.36-7.41) VBG pCO2 39 (38-50) mmHg VBG pO2 44 mmHg VBG HCO3 25 mmol/L VBG O2 Saturation 79.0 % VBG Base Excess 0.4 mEq/L Barometric Pressure 734.9 mm/Hg Sodium (136-145) mmol/L Potassium (3.5-5.1) mmol/L Chloride (98-107) mmol/L Carbon Dioxide (21-32) mmol/L Anion Gap (3-11) BUN (7-18) mg/dl Creatinine (0.6-1.4) mg/dl Est Cr Clr Drug Dosing ml/min Est GFR ( Amer) Est GFR (Non-Af Amer) BUN/Creatinine Ratio (10-20) Glucose (70-99) mg/dl Calcium (8.5-10.1) mg/dl Total Bilirubin (0.2-1) mg/dl AST (15-37) U/L ALT (12-78) U/L Alkaline Phosphatase (45-117) U/L Total Protein (6.4-8.2) gm/dl Albumin (3.4-5.0) gm/dl Globulin (2.5-4.0) gm/dl Albumin/Globulin Ratio (0.9-2) Lipase (73-393) U/L Imaging Data Attestation: I personally reviewed and interpreted this imaging study as follows: My Impression: XR Chest 1V read by me Mild congestive changes. No pneumonia. No pneumothorax. ECG Data Attestation: I personally reviewed and interpreted this ECG as follows: Indication: + SOB/dyspnea Rate (beats per minute): 117 Rhythm: + sinus tachycardia ECG Intervals/blocks: + Normal QRS and + Normal QT ECG Ferdinand: + Normal ECG ST segments: no ST elevation ECG Findings: + PVCs MDM Narrative This is a 43-year-old male who presents to the ED with a chief complaint of shortness of breath. The patient states that he was seen earlier today for foot appointment. He states that he took a bath and was too weak to get out of the tub. His had to help him out. He reports right upper quadrant abdominal pain for the past couple of days. He also reports some shortness of breath and he has been coughing up some clear sputum with some pinkish blood-tinged. The patient's initial blood pressure was elevated at 171/119. His heart rate was 117. He is afebrile. He is on 4 L of nasal cannula oxygen here at 96%. He does not use home oxygen and his room saturations were 88% on room air. The patient's physical exam reveals some chronic appearing pedal edema. Lungs are mostly clear. Abdomen is soft and nontender. Lung sounds are diminished. The patient has a chest x-ray that is suggestive of congestive heart failure. His CBC is unremarkable as is his complete metabolic panel. Troponin is negative. Lipase was negative. A VBG was normal. The patient was very hypertensive on his initial presentation. He was given IV laxatives for symptoms of congestive heart failure. He was also given IV hydralazine x2 as well as p.o. clonidine and IV morphine. The patient will be seen by the hospitalist for further eval uation and care. Impression & Plan Hypertensive urgency, CHF (congestive heart failure) Discharge Plan Visit Data Chief Complaint: Shortness of Breath/Dyspnea Stated Complaint: SHORT OF BREATH/CHEST PAIN/BACK PAIN Other Complaint: Back Injury/Pain Chest Pain ED Provider: Kan Ya Discharge Problem: Hypertensive urgency, CHF (congestive heart failure) Patient Disposition: Being Evaluated by Hospitalist Forms Stand Alone Forms: Call Back Authorization, [facility] Prescriptions Prescriptions: No Action Humalog Mix 50-50 KwikPen 100 unit/mL (50-50) insulin pen 40 units SQ BID RF: 0 Trulicity 1.5 mg/0.5 mL pen injector 1.5 mg SQ WEEKLY RF: 0 metoprolol succinate 200 mg tablet extended release 24 hr 200 mg PO QAM RF: 0 esomeprazole magnesium [Nexium] 20 mg capsule,delayed release(DR/EC) 20 mg PO BID RF: 0 hydralazine 100 mg tablet 100 mg PO BID Qty: 180 RF: 3 metolazone 5 mg tablet 5 mg PO BID PRN (Reason: Edema) Qty: 12 RF: 0 torsemide 20 mg tablet 60 mg PO BID Qty: 60 RF: 1 aspirin [Aspirin Low Dose] 81 mg tablet,delayed release (DR/EC) 81 mg PO QAM RF: 0 cetirizine [Zyrtec] 10 mg tablet 10 mg PO QAM RF: 0 spironolactone 25 mg Tablet 25 mg PO QAM Qty: 30 RF: 0 nitroglycerin [Nitrostat] 0.4 mg Tablet, Sublingual 0.4 mg sublingual UD PRN (Reason: chest pain) Qty: 100 RF: 0 budesonide 0.25 mg/2 mL Suspension For Nebulization 0.25 mg NEB Q12 Qty: 60 RF: 0 Combivent Respimat 20-100 mcg/actuation mist 1 puff INHALATION Q6H PRN (Reason: Shortness Of Breath Or Wheezing) RF: 0 cholecalciferol (vitamin D3) [Vitamin D3] 1,000 unit capsule 2,000 units PO BID RF: 0 Entresto 97-103 mg tablet 1 tab PO BID Qty: 60 RF: 0 Referrals Referrals: Ilir Qureshi MD [Primary Care Provider] - Discharge Problem: CHF (congestive heart failure) Qualifiers: Heart failure type: unspecified Heart failure chronicity: acute Qualified Code(s): I50.9 - Heart failure, unspecified The scribe's documentation has been prepared under my direction and personally reviewed by me in its entirety. I confirm that the note above accurately reflects all work, treatment, procedures, and medical decision making performed by me.
[2018-12-20] MEDS ORDERED: cloNIDine HCL 0.1 MG TAB PO ONE (01:19)
--- NOTE | 2018-12-20 02:34 | History & Physical Report ---
Date of Service December 20, 2018 Assessment & Plan (1) Hypertensive urgency: Mr. Huff is a 43-year-old male with a history of nonischemic cardiomyopathy, systolic and diastolic CHF, type 2 diabetes mellitus, COPD, hypertension, and learning disability who presents to the emergency department with shortness of breath. ED course: 40 mg IV Lasix, 10 mg IV hydralazine, 2 mg IV morphine sulfate, 0.2 mg p.o. clonidine, 20 mg IV hydralazine Acute on chronic combined systolic and diastolic CHF -Admit to Med/Surg with telemetry monitoring -Patient desaturated to 88% on room air, currently requiring 4 L of oxygen (pt does not use oxygen at home) -Chest x-ray suggestive of congestive heart failure -Patient has had numerous admissions in the past due to the same, related to medication noncompliance -Patient received 40 mg IV Lasix in the emergency department, will continue his home regimen of metolazone, spironolactone and torsemide -Consider additional dose of Lasix if needed -per review of records, patient's dry weight is 340 pounds, and pt currently weighs 395 pounds -Daily weights, monitor I/Os -Most recent ECHO with LVEF = 50-55% in Oct 2018 -continue home entresto and aspirin Hypertensive urgency -Blood pressure elevated on arrival to emergency department (207/135), likely also secondary to medication noncompliance -Continue home medication regimen of Entresto, hydralazine, metoprolol DM type 2 -home home insulin and trulicity -per review of pt's records, patient has required minimal insulin whilst in hospital, likely related to improved diet -glucose checks AC/HS, ISS ordered -consider addition of Lantus 10 units BID if needed (used on previous admissions) -> pt reports poor appetite lately, and therefore will hold off on long acting insulin at this time COPD -continue home inhalers and nebs -no evidence at this time to suggest COPD exacerbation GERD - pt on esomeprazole at home - switch to pantoprazole here MARIELENA/OHS -continue CPAP qhs Code status: FULL DVT Prophylaxis: Heparin 5,000 units SQ BID Disposition: admit to med/surg with telemetry monitoring (2) CHF (congestive heart failure): (3) Acute on chronic combined systolic and diastolic CHF (congestive heart failure): (4) Hypoxia: (5) Morbid obesity: (6) Nonischemic cardiomyopathy: (7) Diabetes mellitus, type II: (8) Obstructive sleep apnea: (9) Hypertension: (10) Vitamin D insufficiency: (11) COPD (chronic obstructive pulmonary disease): History of Present Illness Chief Complaint: Shortness of breath Primary Care Provider: Ilir Qureshi MD Mr. Huff is a 43-year-old male with a history of nonischemic cardiomyopathy, systolic and diastolic CHF, type 2 diabetes mellitus, COPD, hypertension, and learning disability who presents to the emergency department with shortness of breath. This patient is well-known to our service, due to his multiple admissions for CHF exacerbation secondary to medication noncompliance. Mr. Huff reports sudden onset of shortness of breath occurring at 9 this morning. He denies associated fever, chills, or cough. He states that he has been taking his medications as prescribed. He is unsure if he has gained any weight. He does endorse feeling tired and weak recently, and states he has had a few episodes of emesis. He reports that his legs look swollen to him. He denies using oxygen at home. Allergies Allergy/AdvReac Type Severity Reaction Status Date / Time ceftriaxone Allergy Severe SHORTNESS Verified 12/20/18 00:34 OF BREATH lidocaine Allergy Severe SHORTNESS Verified 12/20/18 00:34 OF BREATH, diaphoretic, hives procaine Allergy Severe SHORTNESS Verified 12/20/18 00:34 OF BREATH, diaphoretic, hives amoxicillin Allergy Intermediate HIVES/FACIAL Verified 12/20/18 00:34 SWELLING lisinopril Allergy Intermediate HIVES Verified 12/20/18 00:34 albuterol Allergy Mild proair Verified 12/20/18 00:34 "trouble taking breaths" clavulanic acid Allergy Unknown . Verified 12/20/18 00:34 acetaminophen AdvReac Mild NAUSEA Verified 12/20/18 00:34 Home Medications Home Medications Medication Instructions Recorded Confirmed Type Entresto 1 tab PO BID #60 tab 08/19/18 12/20/18 Rx insulin lispro protamine-lispro 40 units SQ BID ml 08/28/18 12/20/18 History 100 unit/mL (50-50) subcutaneous pen esomeprazole magnesium 20 mg 20 mg PO BID cap 09/05/18 12/20/18 History capsule,delayed release ipratropium 20 mcg-albuterol 100 1 puff INHALATION Q6H PRN 09/05/18 12/20/18 History mcg/actuation mist for inhalation aspirin 81 mg tablet,delayed 81 mg PO QAM 09/17/18 12/20/18 History release cholecalciferol (vitamin D3) 1,000 2,000 units PO BID cap 09/17/18 12/20/18 History unit capsule cetirizine [Zyrtec] 10 mg PO QAM 10/25/18 12/20/18 History metoprolol succinate ER 200 mg 200 mg PO QAM tab 11/11/18 12/20/18 History tablet,extended release 24 hr dulaglutide 1.5 mg/0.5 mL 1.5 mg SQ WEEKLY ml 11/12/18 12/20/18 History subcutaneous pen injector hydralazine 100 mg tablet 100 mg PO BID #180 tab 11/14/18 12/20/18 Rx metolazone 5 mg tablet 5 mg PO BID PRN #12 tab 11/14/18 12/20/18 History torsemide 20 mg tablet 60 mg PO BID #60 tab 11/14/18 12/20/18 Rx budesonide 0.25 mg NEB Q12 #60 ml 12/11/18 12/20/18 Rx nitroglycerin [Nitrostat] 0.4 mg SUBLINGUAL UD PRN #100 tab 12/11/18 12/20/18 Rx spironolactone 25 mg PO QAM #30 tab 12/11/18 12/20/18 Rx Past Med/Surg History Medical History Morbid obesity (Chronic) BMI> 50 Sinus bradycardia Acute on chronic systolic (congestive) heart failure (Chronic) Nonischemic cardiomyopathy Peripheral neuropathy (Chronic) 2/2 DM type II. Located on the feet bilaterally. Not requiring medication. 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 Difficult to manage. Integrated into heart failure clinic. Frequent admissions for heart failure exacerbations. Echo (05/31) EF=25-30% with mod to severe global hypokinesis, basal kelsi-septal akinetic wall, LVH, RVSP elevated at 30-40mmHg, and mod dilated ascending aorta. Managed medically with ASA + BB + ARB/Neprilysin inhibitor (Entresto) + high dose furosemide (160mg BID) + metolazone (3x we ekly). Considering ICD given EF. 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) Lung nodule (Acute) Dyslipidemia (Acute) Depression with anxiety (Acute) Cluster headache (Acute) Carpal tunnel syndrome (Acute) Bilateral knee pain (Acute) Hemoptysis GERD (gastroesophageal reflux disease) COPD (chronic obstructive pulmonary disease) (Chronic) Acquired claw toe of left foot (Acute) Acquired claw toe of right foot (Acute) Diabetes mellitus with diabetic polyneuropathy (Acute) Back pain (Resolved) Learning disability (Resolved) Cognitive impairment DM II (diabetes mellitus, type II), controlled Depression Fatty liver GERD (gastroesophageal reflux disease) HTN (hypertension) Medical non-compliance Morbid obesity with BMI of 50.0-59.9, adult Nonischemic cardiomyopathy EF 30-35% MARIELENA (obstructive sleep apnea) Does not comply with CPAP Surgical History History of carpal tunnel surgery History of cholecystectomy S/P tonsillectomy Family History Father , age 57 of an MD. Heart disease Myocardial infarction Mother , age 67 of a ruptured neck vessel Sudden Other Depression Lung disease No pertinent family history Social History Preferred Language: Uzbek Communication Ability: Effective Visual Impairment: No Limitations Sole Stainer Required: No Beliefs That Will Affect Care: None marital status: Current Living Situation: Spouse current occupational status: unemployed Feels Safe at Home: Yes Smoking Status: Former smoker Tobacco Type: cigarettes ; Age Started Using Tobacco: 14 ; Age Quit Using Tobacco: 18 ; Second Hand Exposure: No ; Hx Alcohol Use: No Hx Substance Use: No Review of Systems Constitutional: + fatigue and + anorexia; no fever and no chills Respiratory: + dyspnea; no cough, no pain with cough, no sputum production and no wheezing Cardiovascular: + edema; no chest pain, no palpitations and no syncope Gastrointestinal: + abdominal pain, + nausea, + vomiting and + change in bowel habits Musculoskeletal: no back pain Integumentary: no rash and no lesions Physical Exam Constitutional: WD/WN, vitals as above + morbidly obese Eyes: PERRL, conjunctivae normal, anicteric sclerae ENMT: external ear and nose normal, oropharynx normal Respiratory: Auscultation: + diminished lung sounds On 4 L of oxygen via nasal cannula Cardiovascular: Rate/Rhythm: regular rhythm and + tachycardic Extremities: normal capillary refill, + calf tenderness and + pedal edema Gastrointestinal (Abdomen): Percussion/Palpation: abdomen soft Mildly tender to palpation over upper abdomen, no guarding or rigidity Skin: no rashes, warm and dry Neurologic: PERRL, EOMI, accommodation nl, no face palsy, no dysarthria Psychiatric: A+Ox3, euthymic affect Results & Data Vital Signs (Past 12 Hours) Vital Signs Temp Pulse Resp BP Pulse Ox 12/20/18 02:01 119 H 13 97 12/20/18 02:00 118 H 12 186/96 H 95 12/20/18 01:31 109 H 17 97 12/20/18 01:30 113 H 23 213/107 H 96 12/20/18 01:25 105 H 16 97 12/20/18 01:24 106 H 201/118 H 97 12/20/18 01:09 101 H 21 96 12/20/18 01:08 113 H 14 95 12/20/18 01:07 114 H 22 96 12/20/18 01:06 108 H 25 H 181/129 H 95 12/20/18 01:01 121 H 34 H 175/133 H 97 12/20/18 01:00 120 H 16 93 12/20/18 00:38 110 H 33 H 95 12/20/18 00:37 117 H 38 H 171/119 H 96 12/20/18 00:30 113 H 15 179/140 H 96 12/20/18 00:16 101 H 24 97 12/20/18 00:15 100 H 26 H 201/124 H 95 12/20/18 00:13 112 H 25 H 96 12/20/18 00:00 114 H 17 95 12/19/18 23:58 88 L 12/19/18 23:50 114 H 21 207/135 H 93 12/19/18 23:41 117 H 19 182/151 H 93 12/19/18 23:40 124 H 12/19/18 23:39 36.7 C 112 H 19 207/135 H 88 L Code Status & VTE Plan VTE Prophylaxis Plan VTE Prophylaxis will be ordered: Yes Supervising Physician Co-Signing Physician Notes Patient was seen and examined by me personally. I reviewed the chart, the orders and discussed the case in detail with Dr. Nikhil Cisse MD. I read this H&P and agree with its contents to entirety. Resident Activity Tracking Resident Involvement: Resident Care Provided Care Provided: Adult Hospital Medicine (1) Diabetes mellitus, type II Diabetes mellitus complication status: with other specified complication Diabetes mellitus chcf insulin use: with chcf use Qualified Code(s): E11.69 - Type 2 diabetes mellitus with other specified complication; Z79.4 - crusher tender (current) use of insulin (2) CHF (congestive heart failure) Heart failure chronicity: acute Heart failure type: unspecified Qualified Code(s): I50.9 - Heart failure, unspecified (3) COPD (chronic obstructive pulmonary disease) COPD type: unspecified COPD Qualified Code(s): J44.9 - Chronic obstructive pulmonary disease, unspecified (4) Hypertension Hypertension type: unspecified Qualified Code(s): I10 - Essential (primary) hypertension
[2018-12-20] MEDS ORDERED: ACETAMINOPHEN 325 MG TAB PO PRN (03:24)
[2018-12-20] MEDS ORDERED: metOLazone 5 MG TABLET PO PRN (03:24)
[2018-12-20] MEDS ORDERED: POLYETHYLENE (MIRALAX) 17 GM PACK PO PRN (03:24)
[2018-12-20] MEDS ORDERED: GLUCOSE 40% GEL 15 GM TUBE PO PRN (03:24)
[2018-12-20] MEDS ORDERED: GLUCOSE 10 TABS/TUBE PO PRN (03:24)
[2018-12-20] MEDS ORDERED: CARBOHYDRATES FOR HYPOGLYCEMIA PO PRN (03:24)
[2018-12-20] MEDS ORDERED: ALUMINUM/MAGNESIUM SUSP 30 ML UDC PO PRN (03:24)
[2018-12-20] MEDS ORDERED: DEXTROSE 50% 50 ML SYRINGE IV PRN (03:24)
[2018-12-20] MEDS ORDERED: IPRATROPIUM BROMIDE/ALBUTEROL respimat INH INH PRN (03:24)
[2018-12-20] MEDS ORDERED: GLUCAGON FOR INJ 1 MG VIAL SQ PRN (03:24)
[2018-12-20] MEDS ORDERED: MAGNESIUM HYDROXIDE SUSP 30 ML UDC PO PRN (03:24)
--- NOTE | 2018-12-20 04:26 | Billing Data ---
Coding Level of Care Code 20869 Initial Inpt Care Lvl 2
--- NOTE | 2018-12-20 06:17 | XRay Report ---
XR chest 1V portable CLINICAL HISTORY: sob dyspnea COMPARISON STUDY: 12/08/2018 FINDINGS: Findings of a somewhat progressive congestive failure versus pulmonary edema. Slight increa se in cardiac size. IMPRESSION: Progressive components of pulmonary edema versus congestive heart failure The above report was generated using voice recognition software. It may contain grammatical, syntax or spelling errors. Electronically signed by: Cleveland Concepcion M.D. 12/20/2018 6:15 AM
[2018-12-20] MEDS: BUDESONIDE 0.25 MG/2 ML VIAL (PULMICORT) NEB SCH ×2 (06:58→19:55)
[2018-12-20 06:59] LABS: Basophils # (auto) 0.02 K/uL (0-0.2); Basophils % (auto) 0.2 %; Eosinophils # (auto) 0.07 K/uL (0-0.5); Eosinophils % (auto) 0.9 %; Hematocrit (blood only) 41.6 % (42-52); Immature Granulocytes # (auto) 0.03 K/uL (0.00-0.02); Immature Granulocytes % (auto) 0.4 %; Lymphocytes # (auto) 1.82 K/uL (1.2-3.4); Lymphocytes % (auto) 22.1 %; Mean Corpuscular Hemoglobin 28.7 pg (25-34); Mean Corpuscular Hgb Conc 33.7 g/dL (32-36); Mean Corpuscular Volume 85.2 fL (80-100); Monocytes # (auto) 0.65 K/uL (0.11-0.59); Monocytes % (auto) 7.9 %; Neutrophils # (auto) 5.63 K/uL (1.4-6.5); Neutrophils % (auto) 68.5 %; Platelet Count 148 K/uL (130-400); RDW Coefficient of Variation 14.9 % (11.5-14.5); RDW Standard Deviation 45.9 fL (36.4-46.3); Red Blood Count 4.88 M/uL (4.7-6.1); White Blood Count 8.22 K/uL (4.8-10.8)
[2018-12-20 07:36] LABS: BUN Creatinine Ratio 14.2 (10-20); Calcium 8.7 mg/dl (8.5-10.1); Creatinine Clr Calc Pharmacy 151.6 ml/min; Est GFR (African American) 112.5; Est GFR (Non-African American) 97.1; Potassium 3.6 mmol/L (3.5-5.1)
[2018-12-20] MEDS: HydrALAZINE TAB 50 MG TAB PO SCH ×2 (07:47→20:31)
[2018-12-20] MEDS: CETIRIZINE HCL 10 MG TABLET PO SCH (07:47)
[2018-12-20] MEDS: ASPIRIN 81 MG ECTAB PO SCH (07:48)
[2018-12-20] MEDS: SPIRONOLACTONE 25 MG TAB PO SCH (07:48)
[2018-12-20] MEDS: PANTOprazole 40 MG TAB PO SCH (07:48)
[2018-12-20] MEDS: METOPROLOL SUCC 50MG EXT REL TAB PO SCH (07:48)
[2018-12-20] MEDS: CHOLECALCIFEROL 1,000 UNITS TAB PO SCH ×2 (07:48→20:31)
[2018-12-20] MEDS: TORSEMIDE 10 MG TAB PO SCH (07:48)
[2018-12-20] MEDS: HEPARIN SOD 5,000 UNIT/0.5 ML VIAL SQ SCH ×2 (07:49→20:31)
[2018-12-20] MEDS: SACUBITRIL-VALSARTAN 49/51 MG TAB PO SCH ×2 (07:49→20:31)
[2018-12-20] MEDS: INSULIN ASPART 100 UNITS/ML 3 ML PEN SC SCH ×4 (09:00→20:33)
[2018-12-20] MEDS ORDERED: FUROSEMIDE 80 MG in SYRINGE 0 ML IV ONE (09:15)
[2018-12-20] MEDS: POTASSIUM CHLORIDE 20 MEQ TABCR PO SCH ×2 (09:39→11:30)
[2018-12-20] MEDS: POTASSIUM CHLORIDE 20 MEQ/15 ML UDC PO SCH ×2 (11:57→20:32)
--- NOTE | 2018-12-20 14:15 | XRay Report ---
XR ankle RT min 3V routine CLINICAL HISTORY: pain; ?gout, pseudogout? COMPARISON: 12/22/2012 DISCUSSION: Small old avulsion of the medial malleolus. This is unchanged from the prior study. Mild soft tissue edema. No evidence for acute fracture or dislocation. IMPRESSION: 1. Mild soft tissue edema. 2. No acute process. The above report was generated using voice recognition software. It may contain grammatical, syntax or spelling errors. Electronically signed by: Cleveland Concepcion M.D. 12/20/2018 2:14 PM
--- NOTE | 2018-12-20 14:19 | XRay Report ---
XR ankle LT min 3V routine HISTORY: 43 years-old Male pain, gout? pseudogout? Chronic left ankle pain COMPARISON: Right ankle radiographs of same day TECHNIQUE: 3 views of the left ankle FINDINGS: Mild marginal spurring of the tibiotalar joint without significant joint space narrowing, acute fract ure, dislocation or osteochondral defect. No bony erosion. Mild soft tissue prominence of the ankle. Mild degenerative changes of the midfoot and subtalar joint. IMPRESSION: 1. Mild osteoarthritis without acute fracture or dislocation. 2. No evidence of inflammatory or crystalline arthropathy. The above report was generated using voice recognition software. It may contain grammatical, syntax o r spelling errors. Electronically signed by: Petr Irby M.D. 12/20/2018 2:17 PM
--- NOTE | 2018-12-20 14:39 | CT Scan Report ---
CT thoracic spine wo con CT DOSE: 1483.22 mGy.cm HISTORY: Pain. Neuropathy. numbness b/l chest, mid-thoracic region TECHNIQUE: Multiaxial CT images of the thoracic spine were performed and reformatted in the sagittal and coronal plane without the use of contrast. A dose lowering technique was utilized adhering to th e principles of ALARA. COMPARISON: None FINDINGS: No fractures. No subluxation. Paraspinal soft tissues are unremarkable. Mild degenerative d isc changes throughout. Anterior and lateral osteophytic change from T6 through T9. No significant bony compromise of the spinal canal or neural foramina. IMPRESSION: 1. Mild to moderate degenerative disc changes throughout the entire thoracic region. 2. No acute abnormality. 3. No significant bony compromise the spinal canal or neural foramina. The above report was generated using voice recognition software. It may contain grammatical, syntax or spelling errors. Electronically signed by: Cleveland Concepcion M.D. 12/20/2018 2:37 PM
[2018-12-20 16:48] LABS: BUN Creatinine Ratio 11.1 (10-20); Calcium 9.2 mg/dl (8.5-10.1); Creatinine Clr Calc Pharmacy 110.3 ml/min; Est GFR (African American) 76.6; Est GFR (Non-African American) 66.1; Magnesium 1.8 mg/dl (1.8-2.4); Potassium 3.8 mmol/L (3.5-5.1); Uric Acid 9.4 mg/dl (2.6-7.2)
--- NOTE | 2018-12-20 19:03 | Hospitalist Progress Note ---
Date of Service December 20, 2018 Assessment & Plan (1) Acute on chronic combined systolic and diastolic CHF (congestive heart failure): In 2018 the patient's EF was noted to be 25-30%. In 10/2018 a repeat echo by [facility] showed EF of ~50%. His systolic dysfunction was always felt 2nd to nonischemic cardiomyopathy. In the past and for this admission his acute decompensation has been attributed to noncompliance, dietary indiscretion, lack of treatment for severe MARIELENA, etc. He received IV diuresis in the ER upon presentation last pm. I gave additional lasix 80mg IV x 1 this am. Inadvertantly, although I had placed his PO torsemide on hold this am, he apparently had received it very early this am. Thus he had received both the torsemide and IV lasix. With such he has had a dramatic diuresis through the day today. Baseline weight is about 340 pounds. He is at least 20 pounds above dry weight. Would hold both his PO torsemide and aldactone moving forward. I repeated his creatinine late today and it was relatively stable (although mildly higher) at 1.3. If creatinine is stable in am then resume IV diuresis. Cont metoprolol. Cont entresto. Strict I's/O's. Daily weights. (2) Hypertensive urgency: Has had hospitalizations in the past for similar reasons - acute/chronic CHF, HTN urgency or emergency, etc. Typically those stays were thought 2nd to noncompliance with medical therapy. His BPs have already improved with simply resuming his normal BP medication regimen and giving diuresis. Cont to monitor. (3) Bilateral ankle pain: Uncertain as to the exact etiology of his b/l ankle pain, worse on right. He reports inability to weight-bear because of the pain. B/l ankle x-rays without pseudogout crystals, fracture, or other pathology. I did check sed rate and uric acid - both mildly elevated. He does take a thiazide diuretic periodically at home. Thus, it is possible his pain could be gout-related. Gave 10mg of prednisone x 1 today and will repeat again tomorrow for possible gout. Follow response. (4) Cluster headache: He reports frequent headaches at home often associated with tearing of the right eye. This sounds like cluster headaches. Has had MRI brain recently - relatively normal although he has periventricular white matter changes (could be microvascular, migraine-related, etc). Headaches could also be from untreated MARIELENA, HTN, etc. This is a chronic problem for him - consider neurology referral after d/c. (5) Morbid obesity: BMI 55 (6) Nonischemic cardiomyopathy: see discussion above in acute/chronic CHF August 2017 - by report - had normal heart cath while in [place] (7) Diabetes mellitus, type II: Holding home 50/50 insulin and dulaglutide On novolog sliding scale Control adequate thus far Low threshold for lantus or levemir while here especially w/ starting prednisone (8) Obstructive sleep apnea: has not been receiving treatment for this has had BIPAP ordered for him in the past but would not wear it I believe he has also been given NC O2 to wear at HS but I'm not clear if he has been compliant with this also Will need to inquire with him (9) Hypertension: see discussion above in HTN urgency above (10) COPD (chronic obstructive pulmonary disease): no exacerbation at this time cont pulmicort (11) Hemoptysis: had bronchoscopy in 05/[address] Murray and bronch was wnl. 2nd pulmonary edema? other? follow. just saw pulmonary during prior hospital stay - they too felt hemoptysis may be pulmonary edema related (12) Obesity hypoventilation syndrome: (13) Paresthesias: patient c/o b/l lower subcostal numbness that radiates to the back. T-spine CT obtained - DJD noted but neural foramina appeared patent. if this symptom persists consider T-spine MRI. (14) DVT prophylaxis: change heparin to 5000 TID PT/OT evals due to recent difficulties ambulating at home Subjective patient had NUMEROUS complaints during my visit. 1. headaches - right frontal region - "every day" at home; takes excedrin migraine at least 3x's each week. Had headache during my rounds today. 2. b/l ankle pain, worse on right, to the point he had trouble weight-bearing at home prior to coming to hospital. He states he was "crawling on his hands and knees at home" because of this. When was asked if this was true she could not answer (?). 3. cramps in legs. 4. hemoptysis - ongoing for months. 5. numbness/pain b/l subcostal region radiating to the back - present for several days/weeks? 6. lack of appetite - here, and including at home recently. 7. dyspnea/orthopnea. reports he has changed his care from [facility] to Dr Shon Hernandez at [facility] telemetry was stable overnight Review of Systems Constitutional: + weight gain (at least 20 pounds over last 1 week (was hospitalized 1 week ago)) Ear, Nose, Mouth, Throat: no sore throat and no dysphagia Respiratory: + cough, + dyspnea, + dyspnea on exertion and + hemoptysis Cardiovascular: + dyspnea at rest, + orthopnea, + paroxysmal nocturnal dyspnea and + edema; no chest pain Gastrointestinal: no abdominal pain and no nausea Physical Exam Constitutional: + morbidly obese; no acute distress ENMT: external ear and nose normal, oropharynx normal Respiratory: no respiratory distress Auscultation: + diminished lung sounds (bases); no crackles and no wheezes Cardiovascular: Rate/Rhythm: regular rhythm and + tachycardic Heart Sounds: normal S1 and normal S2; no murmur Vessels: posterior tibial pulses present and brachial pulses present; no JVD (but difficult to assess) Extremities: + edema (1+ b/l) Gastrointestinal (Abdomen): normal bowel sounds, soft, nontender, no hepatosplenomegaly Musculoskeletal: no cyanosis or clubbing, extremities motor strength 5/5 b/l ankles - tender with passive flexion/extension, especially on right; no calf abnormalities Neurologic: moves all extremities (strength 5/5 x 4 exts); no focal motor deficits Psychiatric: Orientation: alert Results & Data Vital Signs (Past 12 Hours) Vital Signs Temp Pulse Pulse Resp BP BP Pulse Ox 12/20/18 15:03 36.3 C L 85 19 116/75 96 12/20/18 12:00 36.8 C 100 H 22 146/63 H 98 12/20/18 09:05 100 H 130/80 12/20/18 07:29 36.3 C L 93 H 22 203/129 H 173/108 H 94 12/20/18 07:10 109 H Laboratory Results Laboratory Results - last 24 hr 12/19/18 12/19/18 12/19/18 23:50 23:50 23:50 WBC 11.82 H RBC 4.86 Hgb 14.2 Hct 41.3 L MCV 85.0 MCH 29.2 MCHC 34.4 RDW Std Deviation 45.8 RDW Coeff of Zoltan 14.8 H Plt Count 173 MPV 10.3 Immature Gran % (Auto) 0.3 Neut % (Auto) 75.0 Lymph % (Auto) 18.2 Mason % (Auto) 5.7 Eos % (Auto) 0.7 Baso % (Auto) 0.1 Immature Gran # (Auto) 0.03 H Neut # (Auto) 8.88 H Lymph # (Auto) 2.15 Mason # (Auto) 0.67 H Eos # (Auto) 0.08 Baso # (Auto) 0.01 ESR PT 10.7 INR 1.0 VBG pH VBG pCO2 VBG pO2 VBG HCO3 VBG O2 Saturation VBG Base Excess Barometric Pressure Sodium 141 Potassium 4.0 Chloride 110 H Carbon Dioxide 23 Anion Gap 8.0 BUN 14 Creatinine 1.18 Est Cr Clr Drug Dosing 130.2 Est GFR ( Amer) 87.7 Est GFR (Non-Af Amer) 75.7 BUN/Creatinine Ratio 12.2 Glucose 161 H POC Glucose Uric Acid Calcium 8.8 Magnesium Total Bilirubin 0.7 AST 14 L ALT 22 Alkaline Phosphatase 93 NT-Pro-B Natriuret Pep Total Protein 7.4 Albumin 3.5 Globulin 3.9 Albumin/Globulin Ratio 0.9 Lipase 142 12/20/18 12/20/18 12/20/18 00:17 06:46 06:46 WBC 8.22 RBC 4.88 Hgb 14.0 Hct 41.6 L MCV 85.2 MCH 28.7 MCHC 33.7 RDW Std Deviation 45.9 RDW Coeff of Zoltan 14.9 H Plt Count 148 MPV 10.0 Immature Gran % (Auto) 0.4 Neut % (Auto) 68.5 Lymph % (Auto) 22.1 Mason % (Auto) 7.9 Eos % (Auto) 0.9 Baso % (Auto) 0.2 Immature Gran # (Auto) 0.03 H Neut # (Auto) 5.63 Lymph # (Auto) 1.82 Mason # (Auto) 0.65 H Eos # (Auto) 0.07 Baso # (Auto) 0.02 ESR PT INR VBG pH 7.42 H VBG pCO2 39 VBG pO2 44 VBG HCO3 25 VBG O2 Saturation 79.0 VBG Base Excess 0.4 Barometric Pressure 734.9 Sodium 140 Potassium 3.6 Chloride 109 H Carbon Dioxide 23 Anion Gap 8.0 BUN 14 Creatinine 0.96 Est Cr Clr Drug Dosing 151.6 Est GFR ( Amer) 112.5 Est GFR (Non-Af Amer) 97.1 BUN/Creatinine Ratio 14.2 Glucose 159 H POC Glucose Uric Acid Calcium 8.7 Magnesium Total Bilirubin AST ALT Alkaline Phosphatase NT-Pro-B Natriuret Pep 4535 H Total Protein Albumin Globulin Albumin/Globulin Ratio Lipase 12/20/18 12/20/18 12/20/18 07:43 11:48 16:22 WBC RBC Hgb Hct MCV MCH MCHC RDW Std Deviation RDW Coeff of Zoltan Plt Count MPV Immature Gran % (Auto) Neut % (Auto) Lymph % (Auto) Mason % (Auto) Eos % (Auto) Baso % (Auto) Immature Gran # (Auto) Neut # (Auto) Lymph # (Auto) Mason # (Auto) Eos # (Auto) Baso # (Auto) ESR 43 H PT INR VBG pH VBG pCO2 VBG pO2 VBG HCO3 VBG O2 Saturation VBG Base Excess Barometric Pressure Sodium Potassium Chloride Carbon Dioxide Anion Gap BUN Creatinine Est Cr Clr Drug Dosing Est GFR ( Amer) Est GFR (Non-Af Amer) BUN/Creatinine Ratio Glucose POC Glucose 162 H 180 H Uric Acid Calcium Magnesium Total Bilirubin AST ALT Alkaline Phosphatase NT-Pro-B Natriuret Pep Total Protein Albumin Globulin Albumin/Globulin Ratio Lipase 12/20/18 12/20/18 16:22 16:53 WBC RBC Hgb Hct MCV MCH MCHC RDW Std Deviation RDW Coeff of Zoltan Plt Count MPV Immature Gran % (Auto) Neut % (Auto) Lymph % (Auto) Mason % (Auto) Eos % (Auto) Baso % (Auto) Immature Gran # (Auto) Neut # (Auto) Lymph # (Auto) Mason # (Auto) Eos # (Auto) Baso # (Auto) ESR PT INR VBG pH VBG pCO2 VBG pO2 VBG HCO3 VBG O2 Saturation VBG Base Excess Barometric Pressure Sodium 136 Potassium 3.8 Chloride 104 Carbon Dioxide 25 Anion Gap 8.0 BUN 15 Creatinine 1.32 D Est Cr Clr Drug Dosing 110.3 Est GFR ( Amer) 76.6 Est GFR (Non-Af Amer) 66.1 BUN/Creatinine Ratio 11.1 Glucose 158 H POC Glucose 149 H Uric Acid 9.4 H Calcium 9.2 Magnesium 1.8 Total Bilirubin AST ALT Alkaline Phosphatase NT-Pro-B Natriuret Pep Total Protein Albumin Globulin Albumin/Globulin Ratio Lipase PG Care Time/CCT Total # of Minutes Spent Total Time Spent with Patient: Total time spent is greater than 50% in coordination of care (as documented) at patient's floor/unit and/or counseling patient: (1) Diabetes mellitus, type II Diabetes mellitus correction insulin use: 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 Diabetes mellitus complication status: with other specified complication Qualified Code(s): E11.69 - Type 2 diabetes mellitus with other specified complication; Z79.4 - 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 nurse (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) use of insulin (2) Hypertension Hypertension type: unspecified Qualified Code(s): I10 - Essential (primary) hypertension (3) COPD (chronic obstructive pulmonary disease) COPD type: unspecified COPD Qualified Code(s): J44.9 - Chronic obstructive pulmonary disease, unspecified (4) Cluster headache Headache chronicity pattern: unspecified pattern Intractability: intractable Qualified Code(s): G44.001 - Cluster headache syndrome, unspecified, intractable (5) Bilateral ankle pain Chronicity: acute Qualified Code(s): M25.571 - Pain in right ankle and joints of right foot; M25.572 - Pain in left ankle and joints of left foot
[2018-12-20] MEDS: predniSONE 10 MG TABLET PO SCH (20:31)
[2018-12-21] MEDS: HEPARIN SOD 5,000 UNIT/0.5 ML VIAL SQ SCH ×3 (05:05→14:35)
[2018-12-21] MEDS ORDERED: BUDESONIDE 0.25 MG/2 ML VIAL (PULMICORT) NEB SCH (07:00)
[2018-12-21 07:48] LABS: BUN Creatinine Ratio 17.2 (10-20); Calcium 9.3 mg/dl (8.5-10.1); Creatinine Clr Calc Pharmacy 114.2 ml/min; Est GFR (African American) 82.6; Est GFR (Non-African American) 71.3; Magnesium 1.8 mg/dl (1.8-2.4); Potassium 3.8 mmol/L (3.5-5.1)
[2018-12-21] MEDS: INSULIN ASPART 100 UNITS/ML 3 ML PEN SC SCH ×3 (08:53→17:23)
[2018-12-21] MEDS: CETIRIZINE HCL 10 MG TABLET PO SCH (08:55)
[2018-12-21] MEDS: SACUBITRIL-VALSARTAN 49/51 MG TAB PO SCH (08:55)
[2018-12-21] MEDS: PANTOprazole 40 MG TAB PO SCH (08:55)
[2018-12-21] MEDS: CHOLECALCIFEROL 1,000 UNITS TAB PO SCH (08:55)
[2018-12-21] MEDS: SPIRONOLACTONE 25 MG TAB PO SCH (08:55)
[2018-12-21] MEDS: METOPROLOL SUCC 50MG EXT REL TAB PO SCH (08:55)
[2018-12-21] MEDS: POTASSIUM CHLORIDE 20 MEQ/15 ML UDC PO SCH (08:56)
[2018-12-21] MEDS: HydrALAZINE TAB 50 MG TAB PO SCH (08:56)
[2018-12-21] MEDS: ASPIRIN 81 MG ECTAB PO SCH (08:56)
[2018-12-21] MEDS: predniSONE 10 MG TABLET PO SCH (08:58)
[2018-12-21] MEDS: TORSEMIDE 10 MG TAB PO SCH (09:22)
[2018-12-21] MEDS ORDERED: TORSEMIDE 10 MG TAB PO SCH (17:00)
[2018-12-22] MEDS ORDERED: SPIRONOLACTONE 25 MG TAB PO SCH (09:00)
--- NOTE | 2018-12-29 20:40 | Discharge Summary ---
Date of Service December 21, 2018 Admission HPI Per Admitting Provider Mr. Huff is a 43-year-old male with a history of nonischemic cardiomyopathy, systolic and diastolic CHF, type 2 diabetes mellitus, COPD, hypertension, and learning disability who presents to the emergency department with shortness of breath. This patient is well-known to our service, due to his multiple admissions for CHF exacerbation secondary to medication noncompliance. Mr. Huff reports sudden onset of shortness of breath occurring at 9 this morning. He denies associated fever, chills, or cough. He states that he has been taking his medications as prescribed. He is unsure if he has gained any weight. He does endorse feeling tired and weak recently, and states he has had a few episodes of emesis. He reports that his legs look swollen to him. He denies using oxygen at home. Principal Diagnosis Acute on chronic acute systolicand diastolic CHF Discharge Exam Constitutional: + morbidly obese; no acute distress ENMT: external ear and nose normal, oropharynx normal Respiratory: no respiratory distress Auscultation: + diminished lung sounds (bases); no crackles and no wheezes Cardiovascular: Rate/Rhythm: regular rhythm and regular rate; Heart Sounds: normal S1 and normal S2; no murmur Vessels: posterior tibial pulses present and brachial pulses present; no JVD (but difficult to assess) Extremities: + edema (1+ b/l) Gastrointestinal (Abdomen): normal bowel sounds, soft, nontender, no hepatosplenomegaly Musculoskeletal: no cyanosis or clubbing, extremities motor strength 5/5 b/l ankles - tender with passive flexion/extension, especially on right; no calf abnormalities Neurologic: moves all extremities (strength 5/5 x 4 exts); no focal motor deficits Psychiatric: Orientation: alert Discharge Data Allergies Allergy/AdvReac Type Severity Reaction Status Date / Time ceftriaxone Allergy Severe SHORTNESS Verified 12/23/18 13:48 OF BREATH lidocaine Allergy Severe SHORTNESS Verified 12/23/18 13:48 OF BREATH, diaphoretic, hives procaine Allergy Severe SHORTNESS Verified 12/23/18 13:48 OF BREATH, diaphoretic, hives amoxicillin Allergy Intermediate HIVES/FACIAL Verified 12/23/18 13:48 SWELLING lisinopril Allergy Intermediate HIVES Verified 12/23/18 13:48 albuterol Allergy Mild proair Verified 12/23/18 13:48 "trouble taking breaths" clavulanic acid Allergy Unknown . Verified 12/23/18 13:48 acetaminophen AdvReac Mild NAUSEA Verified 12/23/18 13:48 Consultations 12/20/18 01:38 ED Decision to Admit Stat Ordered Studies 12/20/18 13:22 CT thoracic spine wo con Urgent Hospital Course (1) Acute on chronic combined systolic and diastolic CHF (congestive heart failure): In 2017 the patient's EF was noted to be 25-30%. In 10/2018 a repeat echo by [facility] showed EF of ~50%. His systolic dysfunction was always felt 2nd to nonischemic cardiomyopathy. In the past and for this admission his acute decompensation has been attributed to noncompliance, dietary indiscretion, lack of treatment for severe MARIELENA, etc. He received IV diuresis in the ER upon presentation last pm. I gave additional lasix 80mg IV x 1 this am. Inadvertantly, although I had placed his PO torsemide on hold this am, he apparently had received it very early this am. Thus he had received both the torsemide and IV lasix. With such he has had a dramatic diuresis through the day today. Baseline weight is about 340 pounds. He is at least 20 pounds above dry weight. Would hold both his PO torsemide and aldactone moving forward. Creatinine remeained stable. Patient improved with IV diuresis. Recommended patient to resume outpatient diuretics. Patient will fu with PCP within next 3 days. Cont metoprolol. Cont entresto. \\ (2) Hypertensive urgency: Has had hospitalizations in the past for similar reasons - acute/chronic CHF, HTN urgency or emergency, etc. Typically those stays were thought 2nd to noncompliance with medical therapy. His BPs have already improved with simply resuming his normal BP medication regimen and giving diuresis. \\ (3) Bilateral ankle pain: Uncertain as to the exact etiology of his b/l ankle pain, worse on right. He reports inability to weight-bear because of the pain. B/l ankle x-rays without pseudogout crystals, fracture, or other pathology. I did check sed rate and uric acid - both mildly elevated. He does take a thiazide diuretic periodically at home. Thus, it is possible his pain could be gout-related. Patient improved with prednisone., will monitor as outatient. (4) Cluster headache: He reports frequent headaches at home often associated with tearing of the right eye. This sounds like cluster headaches. Has had MRI brain recently - relatively normal although he has periventricular white matter changes (could be microvascular, migraine-related, etc). Headaches could also be from untreated MARIELENA, HTN, etc. This is a chronic problem for him - consider neurology referral after d/c. (5) Morbid obesity: BMI 55 (6) Nonischemic cardiomyopathy: see discussion above in acute/chronic CHF August 2017 - by report - had normal heart cath while in [place] (7) Diabetes mellitus, type II: Holding home 50/50 insulin and dulaglutide On novolog sliding scale Control adequate thus far Low threshold for lantus or levemir while here especially w/ starting prednisone (8) Obstructive sleep apnea: has not been receiving treatment for this has had BIPAP ordered for him in the past but would not wear it I believe he has also been given NC O2 to wear at HS but I'm not clear if he has been compliant with this also Will need to inquire with him (9) Hypertension: see discussion above in HTN urgency above (10) COPD (chronic obstructive pulmonary disease): no exacerbation at this time cont pulmicort (11) Hemoptysis: had bronchoscopy in 05/[address] for [address] Murray and bronch was wnl. 2nd pulmonary edema? other? follow. just saw pulmonary during prior hospital stay - they too felt hemoptysis may be pulmonary edema related (12) Obesity hypoventilation syndrome: (13) Paresthesias: patient c/o b/l lower subcostal numbness that radiates to the back. T-spine CT obtained - DJD noted but neural foramina appeared patent. if this symptom persists consider T-spine MRI. (14) DVT prophylaxis: change heparin to 5000 TID Patient reports he can go home, does not want rehab, or home health. Total Time Total Time Spent Total Time Spent (In Minutes): 35 Total Time Includes: Examination of the Patient, Discharge Planning and Medication Reconciliation Discharge Plan Discharge Items Patient Disposition: Home - Self-Care Reason For Visit: CHF EXACERBATION Discharge Diagnosis: CHF exacerbation Activity: Resume your previous activity Non-emergency contact: Primary Care Provider Call non-emergency contact if: you have any medication questions Follow-up/Referrals: Ilir Qureshi MD [Primary Care Provider] - Diet: Carb Consistent or DM2 and Low Sodium (2gm) Addtl Attending Provider Instructions: Call 911 and go to the Emergency Room if: * You have tightness or pain in your chest that does not go away with rest or Nitroglycerin * You are very short of breath even with rest Call your doctor if any of the following symptoms or problems start or get worse: * Shortness of breath or difficulty breathing * Wake up at night short of breath * Chest pain * Cough * Swelling of your hands, fee, or legs * More fatigued or tired with your normal activity * Palpitations - sudden fast heart beats WEIGHT * Weigh yourself every morning after using the bathroom. * Use the same scale. * Wear the same amount of clothing. * Write your weight down on your chart. * Call your doctor if you gain more than 2-3 pounds in 1-2 days. MEDICATIONS * Use this discharge instruction sheet for instructions. * Take your medications at the time your doctor ordered. * Do not skip a dose of your medicines. * If you miss a dose of medicine, take as soon as possible, but DO NOT DOUBLE A DOSE. * Read your medicine information when you get home. * Know all of the side effects of your medicine. * Call your doctor's office if you have any side effects. * Be sure all of your doctors know what medicine and herbs you take (including cold, flu, and herbal medicine). * Pain Medicine: If you do not get relief from your pain, please call your doctor for help. Take the following with you to your follow-up doctor appointments: * Weight Chart * Medication List * List of questions Do not drink excessive alcohol, beer or wine. Followup with cardio on the . Recommend checking BMP in 3-5 days Pending Studies at Discharge: No Stand-Alone Forms: My ClaimReturn, Smoking Cessation Medications and DC Order Prescriptions: Continued Humalog Mix 50-50 KwikPen 100 unit/mL (50-50) insulin pen 40 units SQ BID RF: 0 Trulicity 1.5 mg/0.5 mL pen injector 1.5 mg SQ WEEKLY RF: 0 metoprolol succinate 200 mg tablet extended release 24 hr 200 mg PO QAM RF: 0 esomeprazole magnesium [Nexium] 20 mg capsule,delayed release(DR/EC) 20 mg PO BID RF: 0 hydralazine 100 mg tablet 100 mg PO BID Qty: 180 RF: 3 metolazone 5 mg tablet 5 mg PO BID PRN (Reason: Edema) Qty: 12 RF: 0 torsemide 20 mg tablet 60 mg PO BID Qty: 60 RF: 1 aspirin [Aspirin Low Dose] 81 mg tablet,delayed release (DR/EC) 81 mg PO QAM RF: 0 cetirizine [Zyrtec] 10 mg tablet 10 mg PO QAM RF: 0 spironolactone 25 mg Tablet 25 mg PO QAM Qty: 30 RF: 0 nitroglycerin [Nitrostat] 0.4 mg Tablet, Sublingual 0.4 mg sublingual UD PRN (Reason: chest pain) Qty: 100 RF: 0 budesonide 0.25 mg/2 mL Suspension For Nebulization 0.25 mg NEB Q12 Qty: 60 RF: 0 Combivent Respimat 20-100 mcg/actuation mist 1 puff INHALATION Q6H PRN (Reason: Shortness Of Breath Or Wheezing) RF: 0 cholecalciferol (vitamin D3) [Vitamin D3] 1,000 unit capsule 2,000 units PO BID RF: 0 Entresto 97-103 mg tablet 1 tab PO BID Qty: 60 RF: 0 No Action (DME) lancets [OneTouch Delica Plus Lancet] 30 gauge misc See Dose Instructions .ROUTE .MEDSUPPLY Qty: 400 RF: 3 (DME) OneTouch Verio strip See Dose Instructions .ROUTE .MEDSUPPLY Qty: 400 RF: 3 Discharge Orders: Discharge Order (Routine); Ordered 12/21/18 Ordered By: Shemar Sky Admission Data Admit Date/Time: 12/20/18 02:21 Attending Provider: Shemar Sky Admit Provider: Nikhil Cisse Primary Care Provider: Ilir Qureshi Other Providers: Rolan Elizabeth ; [place] Other Interventions: Discharge Summary Assessment (RN) Last Done: 12/21/18 18:00 DC Date/Time DO NOT enter until pt leaves facility: 12/21/18 18:12
== END 2018-12-21 18:12 | disposition home or self-care (01) | DRG 292 ==
LOC: ED 23:34 → SUATTDRO 12-20 02:21 → 2N 12-20 02:21

== ENCOUNTER 2019-01-14 21:35 | Inpatient (IN) ==
[2019-01-14] MEDS ORDERED: ALBUT/IPRATROP 3MG/0.5MG NEB 3 ML VIAL NEB STA (21:55)
[2019-01-14] MEDS ORDERED: KETOROLAC 30 MG/ML VIAL IV STA (21:57)
[2019-01-14] MEDS ORDERED: LABETALOL HCL IV 5 MG/ML 20ML IV STA ×2 (22:06→23:14)
[2019-01-14 22:38] LABS: Basophils # (auto) 0.02 K/uL (0-0.2); Basophils % (auto) 0.2 %; Eosinophils # (auto) 0.12 K/uL (0-0.5); Eosinophils % (auto) 1.1 %; Hematocrit (blood only) 46.4 % (42-52); Hemoglobin 15.9 g/dL (14.0-18.0); Immature Granulocytes # (auto) 0.03 K/uL (0.00-0.02); Immature Granulocytes % (auto) 0.3 %; Lymphocytes # (auto) 1.39 K/uL (1.2-3.4); Lymphocytes % (auto) 12.3 %; Mean Corpuscular Hemoglobin 29.3 pg (25-34); Mean Corpuscular Hgb Conc 34.3 g/dL (32-36); Mean Corpuscular Volume 85.5 fL (80-100); Mean Platelet Volume 10.1 fL (7.4-10.4); Monocytes % (auto) 8.9 %; Neutrophils # (auto) 8.72 K/uL (1.4-6.5); Neutrophils % (auto) 77.2 %; Platelet Count 182 K/uL (130-400); RDW Coefficient of Variation 15.1 % (11.5-14.5); RDW Standard Deviation 46.2 fL (36.4-46.3); Red Blood Count 5.43 M/uL (4.7-6.1); White Blood Count 11.28 K/uL (4.8-10.8)
[2019-01-14 22:41] LABS: Base Excess VBG 1.1 mEq/L; pH VBG 7.48 (7.36-7.41)
[2019-01-14 22:52] LABS: D Dimer 1710 ug/L FEU (0-500)
[2019-01-14 23:01] LABS: Alanine Aminotransferase 21 U/L (12-78); Albumin Level 3.6 gm/dl (3.4-5.0); Aspartate Aminotransferase 14 U/L (15-37); BUN Creatinine Ratio 8.5 (10-20); Blood Urea Nitrogen 9 mg/dl (7-18); Calcium 9.1 mg/dl (8.5-10.1); Carbon Dioxide 24 mmol/L (21-32); Chloride 109 mmol/L (98-107); Creatinine Clr Calc Pharmacy 140.2 ml/min; Est GFR (African American) 107.1; Est GFR (Non-African American) 92.4; Glucose 165 mg/dl (70-99); Lipase 101 U/L (73-393); Magnesium 1.8 mg/dl (1.8-2.4); Potassium 3.4 mmol/L (3.5-5.1); Sodium 138 mmol/L (136-145)
[2019-01-14 23:05] LABS: Appearance Urine Clear (Clear); Bacteria Urine Automated Negative (Negative); Bilirubin Urine Negative (Negative); Blood Urine Negative (Negative); Cast Urine Automated 0 /lpf (0-5); Color Urine Yellow; Epithelial Cell Urine Auto 20-30 /lpf (0-5); Glucose Urine UA Trace (Negative); Ketones Urine Negative (Negative); Leukocyte Esterase Urine Negative (Negative); Nitrite Urine Negative (Negative); RBC Urine Automated 0-4 /hpf (0-4); Specific Gravity Urine 1.009 (1.000-1.030); Urobilinogen Urine Negative (Negative); pH Urine 7.5 (4.5-7.5)
[2019-01-14 23:12] LABS: Albumin Globulin Ratio 0.8 (0.9-2); Alkaline Phosphatase 100 U/L (45-117); Bilirubin,Total 1.4 mg/dl (0.2-1); Globulin 4.4 gm/dl (2.5-4.0); NT Pro B Type Natriuretic Pept 3356 pg/ml (0-450); Thyroid Stimulating Hormone 0.933 uIu/ml (0.300-4.500); Troponin I < 0.015 ng/ml (0-0.045)
[2019-01-14 23:33] LABS: Protein Urine 2+ (Negative); Sulfosalicylic Acid Urine Positive (Negative)
[2019-01-14] MEDS ORDERED: OPTIRAY 320 125ml IV PRN (23:45)
--- NOTE | 2019-01-14 23:55 | Emergency Department Note ---
History of Present Illness General Chief complaint: Shortness of Breath/Dyspnea Stated complaint: SOB Time Seen by Provider: 01/14/19 21:46 History of Present Illness Maximum Pain Intensity: 10 This is a 43-year-old male presenting to the emergency department for evaluation of shortness of breath symptoms worsening over the past 6 to 7 hours. The patient states that he got home around 3 PM today, was walking around his home, and became short of breath. The patient has not had recent fevers or chills. He does have a past history of cardiopulmonary disease including congestive hear t failure, nonischemic cardiomyopathy, and COPD. The patient is not always adherent to his medication regiment. He waited several hours before contacting EMS for his symptoms. He is not complaining of distinct chest pain, but admits he may have had some vague back pain earlier today. The patient states that his weight has been steady and not significantly increased from normal. He believes he is taking his medications as prescribed. He rates his overall discomfort a 10/10. No known exposure to disease. He was last hospitalized about a month ago with similar symptoms. Home Medications Home Medications Medication Instructions Recorded Confirmed Type Entresto 1 tab PO BID #60 tab 08/19/18 01/14/19 Rx insulin lispro protamine-lispro 40 units SQ BID ml 08/28/18 01/14/19 History 100 unit/mL (50-50) subcutaneous pen esomeprazole magnesium 20 mg 20 mg PO BID cap 09/05/18 01/14/19 History capsule,delayed release aspirin 81 mg tablet,delayed 81 mg PO QAM 09/17/18 01/14/19 History release cholecalciferol (vitamin D3) 25 2,000 units PO BID cap 09/17/18 01/14/19 History mcg (1,000 unit) capsule metoprolol succinate 200 mg 200 mg PO QAM tab 11/11/18 01/14/19 History tablet,extended release 24 hr hydralazine 100 mg tablet 100 mg PO BID #180 tab 11/14/18 01/14/19 Rx metolazone 5 mg tablet 5 mg PO BID PRN #12 tab 11/14/18 01/14/19 History torsemide 20 mg tablet 60 mg PO BID #60 tab 11/14/18 01/14/19 Rx budesonide 0.25 mg NEB Q12 #60 ml 12/11/18 01/14/19 Rx nitroglycerin [Nitrostat] 0.4 mg SUBLINGUAL UD PRN #100 tab 12/11/18 01/14/19 Rx spironolactone 25 mg PO QAM #30 tab 12/11/18 01/14/19 Rx OneTouch Delica Plus Lancet 30 #400 ea NS 12/23/18 12/31/18 Rx gauge OneTouch Verio #400 ea NS 12/23/18 12/31/18 Rx Trulicity 1.5 mg/0.5 mL 1.5 mg SQ WEEKLY #6 ml NS 12/31/18 01/14/19 Rx subcutaneous pen injector Allergies Allergy/AdvReac Type Severity Reaction Status Date / Time ceftriaxone Allergy Severe SHORTNESS Verified 01/14/19 22:08 OF BREATH lidocaine Allergy Severe SHORTNESS Verified 01/14/19 22:08 OF BREATH, diaphoretic, hives procaine Allergy Severe SHORTNESS Verified 01/14/19 22:08 OF BREATH, diaphoretic, hives amoxicillin Allergy Intermediate HIVES/FACIAL Verified 01/14/19 22:08 SWELLING clavulanic acid Allergy Intermediate HIVES/FACIAL Verified 01/14/19 22:08 SWELLING lisinopril Allergy Intermediate HIVES Verified 01/14/19 22:08 albuterol Allergy Mild proair Verified 01/14/19 22:08 "trouble taking breaths" acetaminophen AdvReac Mild NAUSEA Verified 01/14/19 22:08 Past Med/Surg History Medical History Acquired claw toe of left foot (Acute) Acquired claw toe of right foot (Acute) Acute on chronic systolic (congestive) heart failure (Chronic) Back pain (Resolved) Bilateral knee pain (Acute) Carpal tunnel syndrome (Acute) Cluster headache (Acute) Cognitive impairment 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 Difficult to manage. Integrated into heart failure clinic. Frequent admissions for heart failure exacerbations. Echo (05/31) EF=25-30% with mod to severe global hypokinesis, basal kelsi-septal akinetic wall, LVH, RVSP elevated at 30-40mmHg, and mod dilated ascending aorta. Managed medically with ASA + BB + ARB/Neprilysin inhibitor (Entresto) + high dose furosemide (160mg BID) + metolazone (3x weekly). Considering ICD given EF. COPD (chronic obstructive pulmonary disease) (Chronic) Depression Depression with anxiety (Acute) Diabetes mellitus with diabetic polyneuropathy (Acute) Diabetes mellitus, type II (Chronic) DM II (diabetes mellitus, type II), controlled Dyslipidemia (Acute) Fatty liver GERD (gastroesophageal reflux disease) GERD (gastroesophageal reflux disease) Hemoptysis HTN (hypertension) Hypertension (Chronic) Learning disability (Resolved) Lung nodule (Acute) Medical non-compliance Mixed hearing loss of left ear (Acute) Morbid obesity (Chronic) BMI> 50 Morbid obesity with BMI of 50.0-59.9, adult Nonischemic cardiomyopathy EF 30-35% Nonischemic cardiomyopathy Obstructive sleep apnea (Chronic) Polysomnography (07/28) with severe mixed osbtructive and central apnea treated with Bipap 27/11 MARIELENA (obstructive sleep apnea) Does not comply with CPAP Peripheral neuropathy (Chronic) 2/2 DM type II. Located on the feet bilaterally. Not requiring medication. Followed by podiatry Right-sided sensorineural hearing loss (Acute) Sinus bradycardia Sinus tachycardia (Acute) TMJ (dislocation of temporomandibular joint) (Acute) Umbilical hernia (Acute) Vitamin D insufficiency Previously deficient, taking Vit D supplementation Surgical History History of carpal tunnel surgery History of cholecystectomy S/P tonsillectomy Family History Father , age 57 of an SC. 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 Beliefs That Will Affect Care: None marital status: Current Living Situation: Spouse current occupational status: unemployed Feels Safe at Home: Yes Smoking Status: Former smoker Tobacco Type: cigarettes ; Age Started Using Tobacco: 14 ; Age Quit Using Tobacco: 18 ; Second Hand Exposure: No ; Hx Alcohol Use: No Hx Substance Use: No Review of Systems A total of 10 systems reviewed and were otherwise negative Physical Exam Vital Signs Vital Signs - 24 hr 01/15/19 00:30 01/15/19 00:31 01/15/19 01:00 Pulse Rate 84 90 82 Pulse Rate from SpO2 Sensor 86 88 85 Respiratory Rate 21 28 H 22 Blood Pressure 139/104 H 156/106 H Blood Pressure Mean 110 119 Pulse Oximetry 95 91 94 Oxygen Delivery Method Oxygen Flow Rate 01/15/19 01:30 01/15/19 02:00 01/15/19 02:30 Pulse Rate 84 82 94 H Pulse Rate from SpO2 Sensor 86 85 93 H Respiratory Rate 18 30 H 31 H Blood Pressure 164/84 H 141/85 H 138/94 Blood Pressure Mean 109 109 113 Pulse Oximetry 94 92 95 Oxygen Delivery Method Nasal Cannula Oxygen Flow Rate 2 01/15/19 02:31 Pulse Rate 80 Pulse Rate from SpO2 Sensor 81 Respiratory Rate 28 H Blood Pressure Blood Pressure Mean Pulse Oximetry 95 Oxygen Delivery Method Oxygen Flow Rate VITALS: Vitals are noted on the nurse's note and reviewed by myself. Vital signs with marked hypertension and tachycardia GENERAL: Moderately uncomfortable appearing white male who is ill appearing but cooperative with the examination. HEAD: Normocephalic atraumatic. EARS: External ear normal. External auditory canals clear, tympanic membranes pearly blake without erythema or effusion bilaterally. EYES: Pupils equal round and reactive to light and accommodation. Conjunctivae without injection, sclerae without icterus. Extraocular movements intact. NOSE: Patent, turbinates without inflammation or discharge. MOUTH: Mucous membranes moist. Tonsils are not enlarged. Pharynx without erythema, blood, or exudate. Uvula midline. Airway patent. NECK: Supple without nuchal rigidity. No lymphadenopathy. No thyromegaly. Cervical spine is nontender. HEART: Tachycardic rate with regular rhythm LUNGS: Diminished but generally clear lung sounds throughout ABDOMEN: Positive normal bowel sounds x 4. Soft, nontender, without masses or organomegaly. No guarding or rebound tenderness. MUSCULOSKELETAL: No muscle atrophy, erythema, or edema noted. Full range of motion in all extremities. NEURO: Patient was alert and oriented to person place and time. CN II through XII grossly intact. SKIN: The skin was without rashes, erythema, edema, or bruising. Capillary refill less than 2 seconds. Course Administered Medications Aspirin (Ecotrin Ectab) 81 mg PO QAM [facility] Stop: 02/14/19 08:59 Last Admin: 01/15/19 09:00 Dose: 81 mg Documented by: [id number] Budesonide (Pulmicort Respules) 0.25 mg INH Q12 [facility] Stop: 02/14/19 08:59 Last Admin: 01/15/19 18:52 Dose: 0.25 mg Documented by: [id number] Admin: 01/15/19 07:01 Dose: 0.25 mg Documented by: [id number] Enoxaparin Sodium (Lovenox) 40 mg SQ DAILY [facility] Stop: 02/14/19 08:59 Last Admin: 01/15/19 09:00 Dose: 40 mg Documented by: [id number] Hydralazine HCl (Apresoline) 100 mg PO BID [facility] Stop: 02/14/19 08:59 Last Admin: 01/15/19 21:13 Dose: 100 mg Documented by: [id number] Admin: 01/15/19 08:58 Dose: 100 mg Documented by: [id number] Insulin Aspart (Novolog Flexpen) 0 units SC ACHS [facility] Stop: 02/14/19 07:29 Last Admin: 01/15/19 21:23 Dose: 3 units Documented by: [id number] Cosigned by: [id number] Admin: 01/15/19 17:09 Dose: 11 units Documented by: [id number] Cosigned by: [id number] Admin: 01/15/19 12:08 Dose: 8 units Documented by: [id number] Cosigned by: [id number] Admin: 01/15/19 08:57 Dose: 1 units Documented by: [id number] Cosigned by: [id number] Insulin Glargine (Lantus Solostar Pen) 25 units SC BID [facility] Stop: 02/14/19 08:59 Last Admin: 01/15/19 21:22 Dose: 25 units Documented by: [id number] Cosigned by: [id number] Admin: 01/15/19 08:58 Dose: 25 units Documented by: [id number] Cosigned by: [id number] Ipratropium [place] (Atrovent 0.02% 0.5mg/2.5ml) 0.5 mg INH Q6R PRN PRN Reason: SHORTNESS OF BREATH/WHEEZING Stop: 02/14/19 03:44 Last Admin: 01/15/19 07:02 Dose: 0.5 mg Documented by: [id number] Ketorolac Tromethamine (Toradol) 15 mg IV Q6H PRN PRN Reason: Mild pain/fever Stop: 01/20/19 03:44 Last Admin: 01/15/19 19:42 Dose: 15 mg Documented by: [id number] Admin: 01/15/19 09:08 Dose: 15 mg Documented by: [id number] Levalbuterol HCl (Xopenex 1.25mg/0.5ml Neb) 1.25 mg INH Q6R PRN PRN Reason: SHORTNESS OF BREATH/WHEEZING Stop: 02/14/19 06:59 Last Admin: 01/15/19 07:02 Dose: 1.25 mg Documented by: [id number] Metolazone (Zaroxolyn) 5 mg PO [facility] Stop: 02/14/19 08:59 Last Admin: 01/15/19 09:00 Dose: 5 mg Documented by: [id number] Metoprolol Succinate (Toprol Xl) 200 mg PO [facility] Stop: 02/14/19 08:59 Last Admin: 01/15/19 08:59 Dose: 200 mg Documented by: [id number] Pantoprazole Sodium (Protonix) 40 mg PO BID [facility] Stop: 02/14/19 08:59 Last Admin: 01/15/19 21:13 Dose: 40 mg Documented by: [id number] Admin: 01/15/19 09:00 Dose: 40 mg Documented by: [id number] Sacubitril/Valsartan (Entresto 24/26mg) 2 tab PO BID [facility] Stop: 02/14/19 08:59 Last Admin: 01/15/19 21:13 Dose: 2 tab Documented by: [id number] Admin: 01/15/19 08:59 Dose: 2 tab Documented by: [id number] Sacubitril/Valsartan (Entresto 49/51mg) 1 tab PO BID [facility] Stop: 02/14/19 08:59 Last Admin: 01/15/19 21:14 Dose: 1 tab Documented by: [id number] Admin: 01/15/19 08:59 Dose: 1 tab Documented by: [id number] Spironolactone (Aldactone) 25 mg PO [facility] Stop: 02/14/19 08:59 Last Admin: 01/15/19 09:00 Dose: 25 mg Documented by: [id number] Torsemide (Demadex) 60 mg PO BID17 [facility] Stop: 02/14/19 08:59 Last Admin: 01/15/19 17:13 Dose: 60 mg Documented by: [id number] Admin: 01/15/19 08:59 Dose: 60 mg Documented by: [id number] Vitamin D (Vitamin D3) 2,000 units PO BID [facility] Stop: 02/14/19 08:59 Last Admin: 01/15/19 21:13 Dose: 2,000 units Documented by: [id number] Admin: 01/15/19 09:00 Dose: 2,000 units Documented by: [id number] Discontinued Medications Albuterol (Duoneb) 3 ml NEB NOW STA Stop: 01/14/19 21:56 Last Admin: 01/14/19 22:26 Dose: 3 ml Documented by: [id number] Furosemide (Lasix) 40 mg IV NOW STA Stop: 01/15/19 00:56 Last Admin: 01/15/19 01:03 Dose: 40 mg Documented by: [id number] Ioversol (Optiray 320 125ml) 125 ml IV ONCE PRN PRN Reason: Interaction Checking Stop: 01/18/19 23:44 Last Admin: 01/14/19 23:45 Dose: 105 ml Documented by: [id number] Ketorolac Tromethamine (Toradol) 30 mg IV NOW STA Stop: 01/14/19 21:58 Last Admin: 01/14/19 22:22 Dose: 30 mg Documented by: [id number] Labetalol HCl (Normodyne) 10 mg IV NOW STA Stop: 01/14/19 22:07 Last Admin: 01/14/19 22:21 Dose: 10 mg Documented by: [id number] Cosigned by: [id number] Labetalol HCl (Normodyne) 10 mg IV NOW STA Stop: 01/14/19 23:15 Last Admin: 01/14/19 23:52 Dose: 10 mg Documented by: [id number] Cosigned by: [id number] Miscellaneous Information (Dc All Previously Ordered Diabetes Meds) 1 ea N/A ONE ONE Stop: 01/15/19 05:01 Last Admin: 01/15/19 05:54 Dose: Not Given Documented by: [id number] Potassium Chloride (Klor-Con M20) 20 meq PO NOW STA Stop: 01/15/19 00:56 Last Admin: 01/15/19 01:03 Dose: 20 meq Documented by: [id number] Potassium Chloride (Klor-Con M20) 40 meq PO NOW STA Stop: 01/15/19 16:03 Last Admin: 01/15/19 17:08 Dose: 40 meq Documented by: [id number] Critical Care Time I have personally spent greater than 30 minutes of critical care time in the direct management of this patient. This includes bedside care, interpretation of diagnostic studies, and testing, discussion with consultants, patient, and family members, and other required patient management activities. This 30 minutes is in excess of all separately billable procedures. Medical Decision Making Differential Diagnosis Differential diagnosis includes, but is not limited to: Myocardial infarction, pulmonary emboli, CHF, dysrhythmia, pericarditis, pneumothorax, aortic aneurysm/dissection, DVT/PE, anxiety, GERD, PUD, electrolyte imbalance, thyroid disorder, pneumonia, bronchitis, pancreatitis, and others Laboratory Data Result diagrams: 01/15/19 07:03 01/15/19 07:03 Lab Results 01/14/19 01/14/19 01/14/19 Range/Units 22:10 22:15 22:16 WBC 11.28 H (4.8-10.8) K/uL RBC 5.43 (4.7-6.1) M/uL Hgb 15.9 (14.0-18.0) g/dL Hct 46.4 (42-52) % MCV 85.5 (80-100) fL MCH 29.3 (25-34) pg MCHC 34.3 (32-36) g/dL RDW Std Deviation 46.2 (36.4-46.3) fL RDW Coeff of Zoltan 15.1 H (11.5-14.5) % Plt Count 182 (130-400) K/uL MPV 10.1 (7.4-10.4) fL Immature Gran % (Auto) 0.3 % Neut % (Auto) 77.2 % Lymph % (Auto) 12.3 % [place] % (Auto) 8.9 % Eos % (Auto) 1.1 % Baso % (Auto) 0.2 % Immature Gran # (Auto) 0.03 H (0.00-0.02) K/uL Neut # (Auto) 8.72 H (1.4-6.5) K/uL Lymph # (Auto) 1.39 (1.2-3.4) K/uL [place] # (Auto) 1.00 H (0.11-0.59) K/uL Eos # (Auto) 0.12 (0-0.5) K/uL Baso # (Auto) 0.02 (0-0.2) K/uL D-Dimer (0-500) ug/L FEU VBG pH (7.36-7.41) VBG pCO2 (38-50) mmHg VBG pO2 mmHg VBG HCO3 mmol/L VBG O2 Saturation % VBG Base Excess mEq/L Barometric Pressure mm/Hg Sodium (136-145) mmol/L Potassium (3.5-5.1) mmol/L Chloride (98-107) mmol/L Carbon Dioxide (21-32) mmol/L Anion Gap (3-11) BUN (7-18) mg/dl Creatinine (0.6-1.4) mg/dl Est Cr Clr Drug Dosing ml/min Est GFR ( Amer) Est GFR (Non-Af Amer) BUN/Creatinine Ratio (10-20) Glucose (70-99) mg/dl Lactate (0.4-2.0) mmol/L Calcium (8.5-10.1) mg/dl Magnesium (1.8-2.4) mg/dl Total Bilirubin (0.2-1) mg/dl AST (15-37) U/L ALT (12-78) U/L Alkaline Phosphatase (45-117) U/L Troponin I (0-0.045) ng/ml NT-Pro-B Natriuret Pep (0-450) pg/ml Total Protein (6.4-8.2) gm/dl Albumin (3.4-5.0) gm/dl Globulin (2.5-4.0) gm/dl Albumin/Globulin Ratio (0.9-2) Lipase (73-393) U/L TSH (0.300-4.500) uIu/ml Urine Color Yellow Urine Appearance Clear (Clear) Urine pH 7.5 (4.5-7.5) Ur Specific [place] 1.009 (1.000-1.030) Urine Protein 2+ H (Negative) Urine Glucose (UA) Trace H (Negative) Urine Ketones Negative (Negative) Urine Blood Negative (Negative) Urine Nitrite Negative (Negative) Urine Bilirubin Negative (Negative) Urine Urobilinogen Negative (Negative) Ur Leukocyte Esterase Negative (Negative) Urine WBC (Auto) 1-5 (0-5) /hpf Urine RBC (Auto) 0-4 (0-4) /hpf U Hyaline Cast (Auto) 0 (0-5) /lpf U Epithel Cells (Auto) 20-30 H (0-5) /lpf Urine Bacteria (Auto) Negative (Negative) Influenza Type A Ag Neg for Influ A (Neg) Influenza Type B Ag Neg for Influ B (Neg) 01/14/19 01/14/19 01/14/19 Range/Units 22:16 22:16 22:16 WBC (4.8-10.8) K/uL RBC (4.7-6.1) M/uL Hgb (14.0-18.0) g/dL Hct (42-52) % MCV (80-100) fL MCH (25-34) pg MCHC (32-36) g/dL RDW Std Deviation (36.4-46.3) fL RDW Coeff of Zoltan (11.5-14.5) % Plt Count (130-400) K/uL MPV (7.4-10.4) fL Immature Gran % (Auto) % Neut % (Auto) % Lymph % (Auto) % [place] % (Auto) % Eos % (Auto) % Baso % (Auto) % Immature Gran # (Auto) (0.00-0.02) K/uL Neut # (Auto) (1.4-6.5) K/uL Lymph # (Auto) (1.2-3.4) K/uL [place] # (Auto) (0.11-0.59) K/uL Eos # (Auto) (0-0.5) K/uL Baso # (Auto) (0-0.2) K/uL D-Dimer 1710 H* (0-500) ug/L FEU VBG pH (7.36-7.41) VBG pCO2 (38-50) mmHg VBG pO2 mmHg VBG HCO3 mmol/L VBG O2 Saturation % VBG Base Excess mEq/L Barometric Pressure mm/Hg Sodium 138 (136-145) mmol/L Potassium 3.4 L (3.5-5.1) mmol/L Chloride 109 H (98-107) mmol/L Carbon Dioxide 24 (21-32) mmol/L Anion Gap 6.0 (3-11) BUN 9 (7-18) mg/dl Creatinine 1.00 (0.6-1.4) mg/dl Est Cr Clr Drug Dosing 140.2 ml/min Est GFR ( Amer) 107.1 Est GFR (Non-Af Amer) 92.4 BUN/Creatinine Ratio 8.5 L (10-20) Glucose 165 H (70-99) mg/dl Lactate 1.4 (0.4-2.0) mmol/L Calcium 9.1 (8.5-10.1) mg/dl Magnesium 1.8 (1.8-2.4) mg/dl Total Bilirubin 1.4 H (0.2-1) mg/dl AST 14 L (15-37) U/L ALT 21 (12-78) U/L Alkaline Phosphatase 100 (45-117) U/L Troponin I < 0.015 (0-0.045) ng/ml NT-Pro-B Natriuret Pep 3356 H (0-450) pg/ml Total Protein 8.0 (6.4-8.2) gm/dl Albumin 3.6 (3.4-5.0) gm/dl Globulin 4.4 H (2.5-4.0) gm/dl Albumin/Globulin Ratio 0.8 L (0.9-2) Lipase 101 (73-393) U/L TSH 0.933 (0.300-4.500) uIu/ml Urine Color Urine Appearance (Clear) Urine pH (4.5-7.5) Ur Specific [place] (1.000-1.030) Urine Protein (Negative) Urine Glucose (UA) (Negative) Urine Ketones (Negative) Urine Blood (Negative) Urine Nitrite (Negative) Urine Bilirubin (Negative) Urine Urobilinogen (Negative) Ur Leukocyte Esterase (Negative) Urine WBC (Auto) (0-5) /hpf Urine RBC (Auto) (0-4) /hpf U Hyaline Cast (Auto) (0-5) /lpf U Epithel Cells (Auto) (0-5) /lpf Urine Bacteria (Auto) (Negative) Influenza Type A Ag (Neg) Influenza Type B Ag (Neg) 01/14/19 Range/Units 22:20 WBC (4.8-10.8) K/uL RBC (4.7-6.1) M/uL Hgb (14.0-18.0) g/dL Hct (42-52) % MCV (80-100) fL MCH (25-34) pg MCHC (32-36) g/dL RDW Std Deviation (36.4-46.3) fL RDW Coeff of Zoltan (11.5-14.5) % Plt Count (130-400) K/uL MPV (7.4-10.4) fL Immature Gran % (Auto) % Neut % (Auto) % Lymph % (Auto) % [place] % (Auto) % Eos % (Auto) % Baso % (Auto) % Immature Gran # (Auto) (0.00-0.02) K/uL Neut # (Auto) (1.4-6.5) K/uL Lymph # (Auto) (1.2-3.4) K/uL [place] # (Auto) (0.11-0.59) K/uL Eos # (Auto) (0-0.5) K/uL Baso # (Auto) (0-0.2) K/uL D-Dimer (0-500) ug/L FEU VBG pH 7.48 H (7.36-7.41) VBG pCO2 33 L (38-50) mmHg VBG pO2 71 mmHg VBG HCO3 24 mmol/L VBG O2 Saturation 82.0 % VBG Base Excess 1.1 mEq/L Barometric Pressure 724.9 mm/Hg Sodium (136-145) mmol/L Potassium (3.5-5.1) mmol/L Chloride (98-107) mmol/L Carbon Dioxide (21-32) mmol/L Anion Gap (3-11) BUN (7-18) mg/dl Creatinine (0.6-1.4) mg/dl Est Cr Clr Drug Dosing ml/min Est GFR ( Amer) Est GFR (Non-Af Amer) BUN/Creatinine Ratio (10-20) Glucose (70-99) mg/dl Lactate (0.4-2.0) mmol/L Calcium (8.5-10.1) mg/dl Magnesium (1.8-2.4) mg/dl Total Bilirubin (0.2-1) mg/dl AST (15-37) U/L ALT (12-78) U/L Alkaline Phosphatase (45-117) U/L Troponin I (0-0.045) ng/ml NT-Pro-B Natriuret Pep (0-450) pg/ml Total Protein (6.4-8.2) gm/dl Albumin (3.4-5.0) gm/dl Globulin (2.5-4.0) gm/dl Albumin/Globulin Ratio (0.9-2) Lipase (73-393) U/L TSH (0.300-4.500) uIu/ml Urine Color Urine Appearance (Clear) Urine pH (4.5-7.5) Ur Specific [place] (1.000-1.030) Urine Protein (Negative) Urine Glucose (UA) (Negative) Urine Ketones (Negative) Urine Blood (Negative) Urine Nitrite (Negative) Urine Bilirubin (Negative) Urine Urobilinogen (Negative) Ur Leukocyte Esterase (Negative) Urine WBC (Auto) (0-5) /hpf Urine RBC (Auto) (0-4) /hpf U Hyaline Cast (Auto) (0-5) /lpf U Epithel Cells (Auto) (0-5) /lpf Urine Bacteria (Auto) (Negative) Influenza Type A Ag (Neg) Influenza Type B Ag (Neg) Imaging Data Radiologist's Impression: CHEST CTA for PULMONARY ARTERIES CT DOSE: 1250.47 mGy.cm HISTORY: Shortness of breath. Cough. Atypical chest pain. TECHNIQUE: Multiaxial CT images of the chest were performed following the int ravenous administration of contrast to evaluate the pulmonary arteries. Maximal intensity projection images were also obtained. A dose lowering technique was utilized adhering to the principles of ALARA. COMPARISON STUDY: Chest CTA 12/08/2018. FINDINGS: Normal caliber thoracic aorta with no evidence for dissection. The heart is mildly enlarged. No pleural or pericardial effusions. The main and lobar pulmonary arteries are patent. The majority of the segmental and subsegmental pulmonary arteries within the mid to lower lung zones are nondiagnostic due to the motion artifact. However, no definite filling defects identified in the distal pulmonary arteries to suggest pulmonary embolus. Limit ed views of the upper abdomen demonstrate a normal liver, spleen, and adrenal glands. No mediastinal or hilar lymphadenopathy. Normal esophagus. Bilateral gynecomastia. No fractures within the visualized osseous structures. No pneumothorax. The central airways are patent. A 5 mm groundglass nodule within the left upper lobe on image 228. An 8 mm groundglass nodule within the left upper lobe on image 209. A few small groundglass nodular densities within the left lower lobe and right lung apex are also noted. Dominant right apical nodule on image 240 measures 8 mm. IMPRESSION: 1. No evidence for pulmonary embolus with limitations as described above. 2. Cardiomegaly. 3. A few scattered subcentimeter groundglass nodular densities within the upper lobes and left lower lobe. These favor mild inflammatory/infectious change and could represent a low-grade pneumonitis. [address] follow-up recommended to ensure resolution. This finding was called/faxed to the prior physician following dictation. ECG Data Additional Comments: Sinus tachycardia @106 bpm Biatrial enlargement Left axis deviation Left ventricular hypertrophy with repolarization abnormality When compared with ECG of 19-DEC-2018 23:39, T wave inversion more evident in Lateral leads Blood Pressure Blood Pressure Findings: Elevated blood pressure Blood Pressure Disposition: further management by hospitalist [facility] Narrative Physical exam and history were performed. Nursing notes, EMR, and Medication List were personally reviewed. Patient appears to have shortness of breath and difficulty breathing for the past several hours. The patient is well-known to me, and I have seen him several times in the past. He seems significantly worse than his baseline. He is quite tachycardic and hypertensive. While the patient was here in the ER he did have O2 saturations that dropped as low as 85%, and was ultimately placed on oxygen. IV access was established and labs were obtained. EKG was performed as above and he was placed on the monitor tech. The case was discussed with my attending physician, and because of the patient's markedly elevated blood pressure he was given labetalol here in the ER. The patient's blood work is as above and was reviewed. He does not have a significantly elevated white blood cell count, gross anemia, or significant electrolyte imbalance. He is diabetic and glucose is 165. Lactic acid is negative. Transaminases are not diagnostic. Troponin x1 is negative. He does have an elevated BNP which may suggest heart failure. The patient additionally has a markedly elevated d-dimer of over 1700. Because of this CT scan was performed. CT scan was reviewed by myself and radiology showing no obvious PE or distinct pneumonia. He may have some pneumonitis findings as described in the report. Flu swab is negative. The patient was reevaluated multiple times throughout the course of his stay. He continues to be quite hypertensive and did require additional labetalol. Bec ause of his elevated BNP I did give him 40 mg IV Lasix. The patient remained in normal sinus rhythm on the monitor tech, and ultimately his vital signs did improve with treatment here in the department. Overall the patient does not appear well for discharge home. The case was discussed with the on-call hospitalist, who agreed to evaluate the patient here in the department. Please see their dictation for further patient course, plan, and disposition. The chart was completed utilizing [employer] Speech Voice Recognition Software. Grammatical errors, random word insertions, pronoun errors, and incomplete sentences are an occasional consequence of this system due to software limitations, ambient noise, and hardware issues. Any formal questions or concerns about the content, text, or information contained within the body of this dictation should be directly addressed to the provider for clarification. . Impression & Plan Combined systolic and diastolic heart failure, Shortness of breath, Hypoxia, Hypertensive urgency Discharge Plan Visit Data *Final* Discharge Date/Time: 01/15/19 03:06 Chief Complaint: Shortness of Breath/Dyspnea Stated Complaint: SOB ED Provider: Shon Yadav ED Midlevel Provider: Vick Banuelos Discharge Problem: Combined systolic and diastolic heart failure, Shortness of breath, Hypoxia, Hypertensive urgency Patient Disposition: Admitted As Inpatient Discharge Instructions Interventions: ED Discharge Assessment Last Done: 01/15/19 03:06 Discharge Problem: Combined systolic and diastolic heart failure Qualifiers: Heart failure chronicity: acute Qualified Code(s): I50.41 - Acute combined systolic (congestive) and diastolic (congestive) heart failure
[2019-01-15] MEDS ORDERED: POTASSIUM CHLORIDE 20 MEQ TABCR PO STA ×2 (00:55→16:02)
[2019-01-15] MEDS ORDERED: FUROSEMIDE 40 MG/4 ML VIAL IV STA (00:55)
--- NOTE | 2019-01-15 02:53 | History & Physical Report ---
Date of Service January 15, 2019 Assessment & Plan (1) Acute on chronic combined systolic and diastolic CHF (congestive heart failure): Admit to PCU supplemental oxygen nasal cannula at 2 L Lasix 40mg IV given in the ED I added metolazone 5mg in the am (patient does not feel he has been taking this). re-evaluate need for further IV diuretic in the am Continue torsemide 60mg BID (it is possible that the patient has not been taking as directed as he has a history of non-compliance). monitor lytes CHF order set used (2) Hypertensive urgency: Improved after IV doses x2 of labetalol. (3) Diabetes mellitus, type II: Continue Insulin and Trulicity Sliding scale ass needed for coverage ADA diet (4) Sinus tachycardia: (5) GERD (gastroesophageal reflux disease): Continue Nexium (6) COPD (chronic obstructive pulmonary disease): No sign of exacerbation at this time Xopenex and Atrovent nebs ordered. (7) Dyslipidemia: History of Present Illness 43 y/o male presented to the ED with a 6 hour history of worsening SOB. The patient declines having chest pain, cough, or F/C. He did report feeling weak after walking outside. He was given a dose of IV Lasix in the ED and placed on supplemental oxygen which the patient feels has allowed him to feel better. He states that this feels like when he is "holding too much water". No N/V/D, change in medications, or increased salt or fluid intake. Primary Care Provider: Ilir Qureshi MD Allergies Allergy/AdvReac Type Severity Reaction Status Date / Time ceftriaxone Allergy Severe SHORTNESS Verified 01/14/19 22:08 OF BREATH lidocaine Allergy Severe SHORTNESS Verified 01/14/19 22:08 OF BREATH, diaphoretic, hives procaine Allergy Severe SHORTNESS Verified 01/14/19 22:08 OF BREATH, diaphoretic, hives amoxicillin Allergy Intermediate HIVES/FACIAL Verified 01/14/19 22:08 SWELLING clavulanic acid Allergy Intermediate HIVES/FACIAL Verified 01/14/19 22:08 SWELLING lisinopril Allergy Intermediate HIVES Verified 01/14/19 22:08 albuterol Allergy Mild proair Verified 01/14/19 22:08 "trouble taking breaths" acetaminophen AdvReac Mild NAUSEA Verified 01/14/19 22:08 Home Medications Home Medications Medication Instructions Recorded Confirmed Type Entresto 1 tab PO BID #60 tab 08/19/18 01/14/19 Rx insulin lispro protamine-lispro 40 units SQ BID ml 08/28/18 01/14/19 History 100 unit/mL (50-50) subcutaneous pen esomeprazole magnesium 20 mg 20 mg PO BID cap 09/05/18 01/14/19 History capsule,delayed release aspirin 81 mg tablet,delayed 81 mg PO QAM 09/17/18 01/14/19 History release cholecalciferol (vitamin D3) 25 2,000 units PO BID cap 09/17/18 01/14/19 History mcg (1,000 unit) capsule metoprolol succinate 200 mg 200 mg PO QAM tab 11/11/18 01/14/19 History tablet,extended release 24 hr hydralazine 100 mg tablet 100 mg PO BID #180 tab 11/14/18 01/14/19 Rx metolazone 5 mg tablet 5 mg PO BID PRN #12 tab 11/14/18 01/14/19 History torsemide 20 mg tablet 60 mg PO BID #60 tab 11/14/18 01/14/19 Rx budesonide 0.25 mg NEB Q12 #60 ml 12/11/18 01/14/19 Rx nitroglycerin [Nitrostat] 0.4 mg SUBLINGUAL UD PRN #100 tab 12/11/18 01/14/19 Rx spironolactone 25 mg PO QAM #30 tab 12/11/18 01/14/19 Rx OneTouch Delica Plus Lancet 30 #400 ea NS 12/23/18 12/31/18 Rx gauge OneTouch Verio #400 ea NS 12/23/18 12/31/18 Rx Trulicity 1.5 mg/0.5 mL 1.5 mg SQ WEEKLY #6 ml NS 12/31/18 01/14/19 Rx subcutaneous pen injector Past Med/Surg History Medical History Acquired claw toe of left foot (Acute) Acquired claw toe of right foot (Acute) Acute on chronic systolic (congestive) heart failure (Chronic) Back pain (Resolved) Bilateral knee pain (Acute) Carpal tunnel syndrome (Acute) Cluster headache (Acute) Cognitive impairment 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 Difficult to manage. Integrated into heart failure clinic. Frequent admissions for heart failure exacerbations. Echo (05/31) EF=25-30% with mod to severe global hypokinesis, basal kelsi-septal akinetic wall, LVH, RVSP elevated at 30-40mmHg, and mod dilated ascending aorta. Managed medically with ASA + BB + ARB/Neprilysin inhibitor (Entresto) + high dose furosemide (160mg BID) + metolazone (3x weekly). Considering ICD given EF. COPD (chronic obstructive pulmonary disease) (Chronic) Depression Depression with anxiety (Acute) Diabetes mellitus with diabetic polyneuropathy (Acute) Diabetes mellitus, type II (Chronic) DM II (diabetes mellitus, type II), controlled Dyslipidemia (Acute) Fatty liver GERD (gastroesophageal reflux disease) GERD (gastroesophageal reflux disease) Hemoptysis HTN (hypertension) Hypertension (Chronic) Learning disability (Resolved) Lung nodule (Acute) Medical non-compliance Mixed hearing loss of left ear (Acute) Morbid obesity (Chronic) BMI> 50 Morbid obesity with BMI of 50.0-59.9, adult Nonischemic cardiomyopathy EF 30-35% Nonischemic cardiomyopathy Obstructive sleep apnea (Chronic) Polysomnography (07/28) with severe mixed osbtructive and central apnea treated with Bipap 27/11 MARIELENA (obstructive sleep apnea) Does not comply with CPAP Peripheral neuropathy (Chronic) 2/2 DM type II. Located on the feet bilaterally. Not requiring medication. Followed by podiatry Right-sided sensorineural hearing loss (Acute) Sinus bradycardia Sinus tachycardia (Acute) TMJ (dislocation of temporomandibular joint) (Acute) Umbilical hernia (Acute) Vitamin D insufficiency Previously deficient, taking Vit D supplementation Surgical History History of carpal tunnel surgery History of cholecystectomy S/P tonsillectomy Family History Father , age 57 of an NC. Heart disease Myocardial infarction Mother , age 67 of a ruptured neck vessel Sudden Other Depression Lung disease No pertinent family history Social History Preferred Language: Mauritian Communication Ability: Effective Visual Impairment: No Limitations Static Balancer Required: No Beliefs That Will Affect Care: None marital status: Current Living Situation: Spouse current occupational status: unemployed Feels Safe at Home: Yes Smoking Status: Former smoker Tobacco Type: cigarettes ; Age Started Using Tobacco: 14 ; Age Quit Using Tobacco: 18 ; Second Hand Exposure: No ; Hx Alcohol Use: No Hx Substance Use: No Review of Systems Review of Systems: Constitutional- no fever; no weight loss Eyes- no acute visual changes ENT- no sinus drainage; no pharyngitis Pulmonary- As in HPI Cardiac- As in HPI, no increase in edema of ankles. GI- no nausea, no vomiting, no diarrhea, no melena, no hematochezia - no dysuria, no hematuria Musculoskeletal- no new arthralgias, no myalgias Derm- no rashes, no new skin lesions Lymphatics- no adenopathy Endocrine- no polyuria or polydipsia; no heat or cold intolerance Neuro- no headaches, no focal neurologic symptoms Psych- no anxiety, no depression Physical Exam Physical Exam: General- adult male, NAD Head- atraumatic Eyes- PERRL, EOMI, anicteric ENT- oropharynx clear Neck- supple, no JVD, no adenopathy, no thyromegaly. Lungs- Crackles lower lung field b/l. No wheezes appreciated. Heart- regular rhythm; no murmur, no gallop, no rub appreciated Abdomen- normal bowel sounds, soft, nontender. Extremities- + 2 pitting edema b/l ankles. 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 Skin- warm & dry Results & Data Vital Signs (Past 12 Hours) Vital Signs Temp Pulse Pulse Resp BP BP Pulse Ox 01/15/19 02:00 82 30 H 141/85 H 92 01/15/19 01:30 84 18 164/84 H 94 01/15/19 01:00 82 22 156/106 H 94 01/15/19 00:31 90 28 H 91 01/15/19 00:30 84 21 139/104 H 95 01/15/19 00:01 86 27 H 94 01/15/19 00:00 89 24 132/96 89 L 01/14/19 23:57 95 01/14/19 23:53 106 H 30 H 149/107 H 93 01/14/19 23:52 108 H 17 149/107 H 91 01/14/19 23:50 106 H 30 H 01/14/19 23:01 104 H 22 85 L 01/14/19 23:00 99 H 28 H 211/103 H 87 L 01/14/19 22:47 103 H 15 85 L 01/14/19 22:46 99 H 20 201/95 H 95 01/14/19 22:40 91 H 12 95 01/14/19 22:32 98 H 29 H 96 01/14/19 22:31 95 H 22 175/102 H 92 01/14/19 22:30 94 H 26 H 176/109 H 96 01/14/19 22:27 97 H 18 97 01/14/19 22:20 26 H 94 01/14/19 22:15 95 01/14/19 22:10 113 H 19 93 01/14/19 22:01 106 H 17 93 01/14/19 22:00 113 H 17 188/162 H 95 01/14/19 21:52 115 H 18 95 01/14/19 21:51 118 H 22 213/149 H 93 01/14/19 21:49 112 H 16 219/149 H 93 01/14/19 21:46 37.2 C 112 H 25 H 213/149 H 94 Laboratory Results Laboratory Results WBC 11.28 K/uL (4.8-10.8) H 01/14/19 22:16 RBC 5.43 M/uL (4.7-6.1) 01/14/19 22:16 Hgb 15.9 g/dL (14.0-18.0) 01/14/19 22:16 Hct 46.4 % (42-52) 01/14/19 22:16 MCV 85.5 fL (80-100) 01/14/19 22:16 MCH 29.3 pg (25-34) 01/14/19 22:16 MCHC 34.3 g/dL (32-36) 01/14/19 22:16 RDW Std Deviation 46.2 fL (36.4-46.3) 01/14/19 22:16 RDW Coeff of Zoltan 15.1 % (11.5-14.5) H 01/14/19 22:16 Plt Count 182 K/uL (130-400) 01/14/19 22:16 MPV 10.1 fL (7.4-10.4) 01/14/19 22:16 Immature Gran % (Auto) 0.3 % 01/14/19 22:16 Neut % (Auto) 77.2 % 01/14/19 22:16 Lymph % (Auto) 12.3 % 01/14/19 22:16 [place] % (Auto) 8.9 % 01/14/19 22:16 Eos % (Auto) 1.1 % 01/14/19 22:16 Baso % (Auto) 0.2 % 01/14/19 22:16 Immature Gran # (Auto) 0.03 K/uL (0.00-0.02) H 01/14/19 22:16 Neut # (Auto) 8.72 K/uL (1.4-6.5) H 01/14/19 22:16 Lymph # (Auto) 1.39 K/uL (1.2-3.4) 01/14/19 22:16 [place] # (Auto) 1.00 K/uL (0.11-0.59) H 01/14/19 22:16 Eos # (Auto) 0.12 K/uL (0-0.5) 01/14/19 22:16 Baso # (Auto) 0.02 K/uL (0-0.2) 01/14/19 22:16 D-Dimer 1710 ug/L FEU (0-500) H* 01/14/19 22:16 VBG pH 7.48 (7.36-7.41) H 01/14/19 22:20 VBG pCO2 33 mmHg (38-50) L 01/14/19 22:20 VBG pO2 71 mmHg 01/14/19 22:20 VBG HCO3 24 mmol/L 01/14/19 22:20 VBG O2 Saturation 82.0 % 01/14/19 22:20 VBG Base Excess 1.1 mEq/L 01/14/19 22:20 Barometric Pressure 724.9 mm/Hg 01/14/19 22:20 Sodium 138 mmol/L (136-145) 01/14/19 22:16 Potassium 3.4 mmol/L (3.5-5.1) L 01/14/19 22:16 Chloride 109 mmol/L (98-107) H 01/14/19 22:16 Carbon Dioxide 24 mmol/L (21-32) 01/14/19 22:16 Anion Gap 6.0 (3-11) 01/14/19 22:16 BUN 9 mg/dl (7-18) 01/14/19 22:16 Creatinine 1.00 mg/dl (0.6-1.4) 01/14/19 22:16 Est Cr Clr Drug Dosing 140.2 ml/min 01/14/19 22:16 Est GFR ( Amer) 107.1 01/14/19 22:16 Est GFR (Non-Af Amer) 92.4 01/14/19 22:16 BUN/Creatinine Ratio 8.5 (10-20) L 01/14/19 22:16 Glucose 165 mg/dl (70-99) H 01/14/19 22:16 Lactate 1.4 mmol/L (0.4-2.0) 01/14/19 22:16 Calcium 9.1 mg/dl (8.5-10.1) 01/14/19 22:16 Magnesium 1.8 mg/dl (1.8-2.4) 01/14/19 22:16 Total Bilirubin 1.4 mg/dl (0.2-1) H 01/14/19 22:16 AST 14 U/L (15-37) L 01/14/19 22:16 ALT 21 U/L (12-78) 01/14/19 22:16 Alkaline Phosphatase 100 U/L (45-117) 01/14/19 22:16 Troponin I < 0.015 ng/ml (0-0.045) 01/14/19 22:16 NT-Pro-B Natriuret Pep 3356 pg/ml (0-450) H 01/14/19 22:16 Total Protein 8.0 gm/dl (6.4-8.2) 01/14/19 22:16 Albumin 3.6 gm/dl (3.4-5.0) 01/14/19 22:16 Globulin 4.4 gm/dl (2.5-4.0) H 01/14/19 22:16 Albumin/Globulin Ratio 0.8 (0.9-2) L 01/14/19 22:16 Lipase 101 U/L (73-393) 01/14/19 22:16 TSH 0.933 uIu/ml (0.300-4.500) 01/14/19 22:16 Urine Color Yellow 01/14/19 22:15 Urine Appearance Clear (Clear) 01/14/19 22:15 Urine pH 7.5 (4.5-7.5) 01/14/19 22:15 Ur Specific [place] 1.009 (1.000-1.030) 01/14/19 22:15 Urine Protein 2+ (Negative) H 01/14/19 22:15 Urine Glucose (UA) Trace (Negative) H 01/14/19 22:15 Urine Ketones Negative (Negative) 01/14/19 22:15 Urine Blood Negative (Negative) 01/14/19 22:15 Urine Nitrite Negative (Negative) 01/14/19 22:15 Urine Bilirubin Negative (Negative) 01/14/19 22:15 Urine Urobilinogen Negative (Negative) 01/14/19 22:15 Ur Leukocyte Esterase Negative (Negative) 01/14/19 22:15 Urine WBC (Auto) 1-5 /hpf (0-5) 01/14/19 22:15 Urine RBC (Auto) 0-4 /hpf (0-4) 01/14/19 22:15 U Hyaline Cast (Auto) 0 /lpf (0-5) 01/14/19 22:15 U Epithel Cells (Auto) 20-30 /lpf (0-5) H 01/14/19 22:15 Urine Bacteria (Auto) Negative (Negative) 01/14/19 22:15 Influenza Type A Ag Neg for Influ A (Neg) 01/14/19 22:10 Influenza Type B Ag Neg for Influ B (Neg) 01/14/19 22:10 Code Status & VTE Plan VTE Prophylaxis Plan VTE Prophylaxis will be ordered: Yes PG Care Time/CCT Total # of Minutes Spent Total Time Spent: 65 Total Time Spent with Patient: Total time spent is greater than 50% in coordination of care (as documented) at patient's floor/unit and/or counseling patient: (1) Diabetes mellitus, type II Diabetes mellitus complication status: with other specified complication 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
[2019-01-15] MEDS ORDERED: IPRATROPIUM BROMIDE NEB SOLN 0.02% 2.5 ML VIAL INH PRN (03:45)
[2019-01-15] MEDS ORDERED: NITROGLYCERIN SL 0.4 MG/TAB TAB SL PRN (03:45)
[2019-01-15] MEDS ORDERED: XOPENEX/ATROVENT 1.25mg/0.5MG NEB COMBO NEB PRN (03:45)
[2019-01-15] MEDS ORDERED: ONDANSETRON INJ 2 MG/ML 2 ML VIAL IV PRN (03:45)
[2019-01-15] MEDS ORDERED: NON-FORMULARY MEDICATION (Dulaglutide [Trulicity] 1.5 MG) SQ SCH (03:45)
[2019-01-15] MEDS ORDERED: GLUCOSE 40% GEL 15 GM TUBE PO PRN (05:00)
[2019-01-15] MEDS ORDERED: DEXTROSE 50% 50 ML SYRINGE IV PRN (05:00)
[2019-01-15] MEDS ORDERED: GLUCAGON FOR INJ 1 MG VIAL SQ PRN (05:00)
[2019-01-15] MEDS ORDERED: DC ALL PREVIOUSLY ORDERED DIABETES MEDS ONE (05:00)
[2019-01-15] MEDS ORDERED: GLUCOSE 10 TABS/TUBE PO PRN (05:00)
[2019-01-15] MEDS ORDERED: CARBOHYDRATES FOR HYPOGLYCEMIA PO PRN (05:00)
[2019-01-15] MEDS ORDERED: LEVALBUTEROL 1.25MG/0.5ML NEB INH PRN (07:00)
[2019-01-15] MEDS: BUDESONIDE 0.25 MG/2 ML VIAL (PULMICORT) INH SCH ×2 (07:01→18:52)
[2019-01-15 07:45] LABS: Hemoglobin 15.4 g/dL (14.0-18.0); Mean Corpuscular Hemoglobin 29.3 pg (25-34); Mean Corpuscular Hgb Conc 34.2 g/dL (32-36); Mean Corpuscular Volume 85.7 fL (80-100); Mean Platelet Volume 10.8 fL (7.4-10.4); Platelet Count 170 K/uL (130-400); RDW Coefficient of Variation 15.1 % (11.5-14.5); RDW Standard Deviation 47.5 fL (36.4-46.3); Red Blood Count 5.25 M/uL (4.7-6.1); White Blood Count 9.08 K/uL (4.8-10.8)
--- NOTE | 2019-01-15 08:03 | CT Scan Report ---
CHEST CTA for PULMONARY ARTERIES CT DOSE: 1250.47 mGy.cm HISTORY: Shortness of breath. Cough. Atypical chest pain. TECHNIQUE: Multiaxial CT images of the chest were performed following the intravenous administration of contrast to evaluate the pulmonary arteries. Maximal intensity projection images were also obtaine d. A dose lowering technique was utilized adhering to the principles of ALARA. COMPARISON STUDY: Chest CTA 12/08/2018. FINDINGS: Normal caliber thoracic aorta with no evidence for dissection. The heart is mildly enlarged . No pleural or pericardial effusions. The main and lobar pulmonary arteries are patent. The majority of the segmental and subsegmental pulmonary arteries within the mid to lower lung zones are nondiagn ostic due to the motion artifact. However, no definite filling defects identified in the distal pulmo nary arteries to suggest pulmonary embolus. Limited views of the upper abdomen demonstrate a normal l iver, spleen, and adrenal glands. No mediastinal or hilar lymphadenopathy. Normal esophagus. Bilatera l gynecomastia. No fractures within the visualized osseous structures. No pneumothorax. The central a irways are patent. A 5 mm groundglass nodule within the left upper lobe on image 228. An 8 mm groundg lass nodule within the left upper lobe on image 209. A few small groundglass nodular densities within the left lower lobe and right lung apex are also noted. Dominant right apical nodule on image 240 me asures 8 mm. IMPRESSION: 1. No evidence for pulmonary embolus with limitations as described above. 2. Cardiomegaly. 3. A few scattered subcentimeter groundglass nodular densities within the upper lobes and left lower lobe. These favor mild inflammatory/infectious change and could represent a low-grade pneumonitis. [address] follow-up recommended to ensure resolution. This finding was called/faxed to the prior physician following dictation. Electronically signed by: Andrea Bear M.D. 01/15/2019 8:02 AM
[2019-01-15 08:13] LABS: BUN Creatinine Ratio 8.9 (10-20); Calcium 9.1 mg/dl (8.5-10.1); Creatinine Clr Calc Pharmacy 149.1 ml/min; Est GFR (Non-African American) 98.3; Magnesium 1.9 mg/dl (1.8-2.4); Potassium 3.6 mmol/L (3.5-5.1)
[2019-01-15] MEDS: INSULIN ASPART 100 UNITS/ML 3 ML PEN SC SCH ×4 (08:57→21:23)
[2019-01-15] MEDS: INSULIN GLARGINE SOLOSTAR 100 UNITS/ML 3 ML PEN SC SCH ×2 (08:58→21:22)
[2019-01-15] MEDS: HydrALAZINE TAB 50 MG TAB PO SCH ×2 (08:58→21:13)
[2019-01-15] MEDS: SACUBITRIL-VALSARTAN 49/51 MG TAB PO SCH ×2 (08:59→21:14)
[2019-01-15] MEDS: METOPROLOL SUCC 50MG EXT REL TAB PO SCH (08:59)
[2019-01-15] MEDS: TORSEMIDE 10 MG TAB PO SCH ×2 (08:59→17:13)
[2019-01-15] MEDS: SACUBITRIL-VALSARTAN 24-26 MG TAB PO SCH ×2 (08:59→21:13)
[2019-01-15] MEDS ORDERED: INSULIN LISPRO PROTAMIN LISPRO SQ SCH (09:00)
[2019-01-15] MEDS: metOLazone 5 MG TABLET PO SCH (09:00)
[2019-01-15] MEDS: CHOLECALCIFEROL 1,000 UNITS TAB PO SCH ×2 (09:00→21:13)
[2019-01-15] MEDS: ENOXAPARIN INJ 40 MG/0.4 ML SYR SQ SCH (09:00)
[2019-01-15] MEDS: SPIRONOLACTONE 25 MG TAB PO SCH (09:00)
[2019-01-15] MEDS: PANTOprazole 40 MG TAB PO SCH ×2 (09:00→21:13)
[2019-01-15] MEDS: ASPIRIN 81 MG ECTAB PO SCH (09:00)
[2019-01-15] MEDS: KETOROLAC TROMETHAMINE 15 MG/ML VIAL IV PRN ×2 (09:08→19:42)
--- NOTE | 2019-01-15 15:47 | Communication Note ---
Date of Service: January 15, 2019 Patient admitted this AM. Patient has no new complaints. Patient reports his SOB has improved. He states he is close to his baseline. will consult cardiology to see if we can help control his HF.
--- NOTE | 2019-01-15 15:48 | Cardiology Consultation ---
Date of Consultation January 15, 2019 Assessment & Plan (1) Acute on chronic combined systolic and diastolic CHF (congestive heart failure): When I had seen the patient in consultation in November 2018, he was discharged on 12/11/2018 on cardiac medications including spironolactone 25 mg daily, metoprolol succinate 200 mg daily in the morning, hydralazine 100 mg twice daily, metolazone 5 mg twice daily, torsemide 60 mg twice daily, Entresto 97/101 tablet twice daily. Patient states he has been taking his medications. He was however very tachycardic on arrival, and in addition to 40 mg of IV furosemide he really has only received his prior to hospital medications and has had a significant diuretic response and his heart rates are much improved. He does have a history of medication nonadherence. After that he was readmitted and was discharged on 12/21/2018, he therefore had missed his 12/20/2018 visit with our office. He also did not show for his 12/25/2018 visit. At present I recommend continuing his current medications. His potassium was 3.6 this morning and given his vigorous diuresis, I will give him extra potassium supplementation. Recommend repeat transthoracic echocardiogram to reassess his LVEF to be performed while hospitalized. (2) NSVT (nonsustained ventricular tachycardia): Patient had a 14 beat markus of nonsustained ventricular tachycardia this morning at 10:09 AM. Replace potassium as noted above. Update echocardiogram. History of Present Illness Attending Physician: Shemar Sky History of Present Illness Alok Huff is a 43 year old male seen in cardiology consultation per the request of Dr Sky for evaluation of congestive heart failure. The patient was admitted via the emergency room early this morning 01/15/2019 having presented late last evening. The patient states he has been taking his cardiac medications including his torsemide. He has been noted however to be volume overloaded, and also tachycardic on admission. He received a dose of IV furosemide, IV labetalol, and then was placed on his prior to hospital dose of torsemide and metolazone. The patient describes vigorous urine output in the meantime describing having filled his urinal 6 times. Recorded intake and output includes 1.7 L of urine output overnight last night, and 1.9 L thus far today since 6:59 AM. He is currently comfortable. His volume status is difficult to assess due to his obesity with a BMI in the range of 52. He is in no distress. The patient had been seen by the undersigned inpatient consultation on 12/09/2018. As described in my note at that time he has a long-standing history of a nonischemic cardiomyopathy with ejection fraction as low as 25% in the pa st. He reportedly had a remote cardiac catheterization in [place] that revealed normal coronary arteries. He had followed closely [place] [facility] [place] clinic up until October 2018. At that time he was visiting [facility] and subsequently was admitted for volume overload at [facility], having established with Dr. Hernandez post discharge. Echocardiogram performed at [facility] on 11/03/2018 revealed left ventricular chamber dilatation with LV end-diastolic dimension of 6.2 cm, however the LV ejection fraction was noted to be 50-54%. Allergies Allergy/AdvReac Type Severity Reaction Status Date / Time ceftriaxone Allergy Severe SHORTNESS Verified 01/14/19 22:08 OF BREATH lidocaine Allergy Severe SHORTNESS Verified 01/14/19 22:08 OF BREATH, diaphoretic, hives procaine Allergy Severe SHORTNESS Verified 01/14/19 22:08 OF BREATH, diaphoretic, hives amoxicillin Allergy Intermediate HIVES/FACIAL Verified 01/14/19 22:08 SWELLING clavulanic acid Allergy Intermediate HIVES/FACIAL Verified 01/14/19 22:08 SWELLING lisinopril Allergy Intermediate HIVES Verified 01/14/19 22:08 albuterol Allergy Mild proair Verified 01/14/19 22:08 "trouble taking breaths" acetaminophen AdvReac Mild NAUSEA Verified 01/14/19 22:08 Home Medications Home Medications Medication Instructions Recorded Confirmed Type Entresto 1 tab PO BID #60 tab 08/19/18 01/14/19 Rx insulin lispro protamine-lispro 40 units SQ BID ml 08/28/18 01/14/19 History 100 unit/mL (50-50) subcutaneous pen esomeprazole magnesium 20 mg 20 mg PO BID cap 09/05/18 01/14/19 History capsule,delayed release aspirin 81 mg tablet,delayed 81 mg PO QAM 09/17/18 01/14/19 History release cholecalciferol (vitamin D3) 25 2,000 units PO BID cap 09/17/18 01/14/19 History mcg (1,000 unit) capsule metoprolol succinate 200 mg 200 mg PO QAM tab 11/11/18 01/14/19 History tablet,extended release 24 hr hydralazine 100 mg tablet 100 mg PO BID #180 tab 11/14/18 01/14/19 Rx metolazone 5 mg tablet 5 mg PO BID PRN #12 tab 11/14/18 01/14/19 History torsemide 20 mg tablet 60 mg PO BID #60 tab 11/14/18 01/14/19 Rx budesonide 0.25 mg NEB Q12 #60 ml 12/11/18 01/14/19 Rx nitroglycerin [Nitrostat] 0.4 mg SUBLINGUAL UD PRN #100 tab 12/11/18 01/14/19 Rx spironolactone 25 mg PO QAM #30 tab 12/11/18 01/14/19 Rx OneTouch Delica Plus Lancet 30 #400 ea NS 12/23/18 12/31/18 Rx gauge OneTouch Verio #400 ea NS 12/23/18 12/31/18 Rx Trulicity 1.5 mg/0.5 mL 1.5 mg SQ WEEKLY #6 ml NS 12/31/18 01/14/19 Rx subcutaneous pen injector Patient History Medical History Acquired claw toe of left foot (Acute) Acquired claw toe of right foot (Acute) Acute on chronic systolic (congestive) heart failure (Chronic) Back pain (Resolved) Bilateral knee pain (Acute) Carpal tunnel syndrome (Acute) Cluster headache (Acute) Cognitive impairment 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 Difficult to manage. Integrated into heart failure clinic. Frequent admissions for heart failure exacerbati ons. Echo (05/31) EF=25-30% with mod to severe global hypokinesis, basal kelsi-septal akinetic wall, LVH, RVSP elevated at 30-40mmHg, and mod dilated ascending aorta. Managed medically with ASA + BB + ARB/Neprilysin inhibitor (Entresto) + high dose furosemide (160mg BID) + metolazone (3x weekly). Considering ICD given EF. COPD (chronic obstructive pulmonary disease) (Chronic) Depression Depression with anxiety (Acute) Diabetes mellitus with diabetic polyneuropathy (Acute) Diabetes mellitus, type II (Chronic) DM II (diabetes mellitus, type II), controlled Dyslipidemia (Acute) Fatty liver GERD (gastroesophageal reflux disease) GERD (gastroesophageal reflux disease) Hemoptysis HTN (hypertension) Hypertension (Chronic) Learning disability (Resolved) Lung nodule (Acute) Medical non-compliance Mixed hearing loss of left ear (Acute) Morbid obesity (Chronic) BMI> 50 Morbid obesity with BMI of 50.0-59.9, adult Nonischemic cardiomyopathy EF 30-35% Nonischemic cardiomyopathy Obstructive sleep apnea (Chronic) Polysomnography (07/28) with severe mixed osbtructive and central apnea treated with Bipap 27/11 MARIELENA (obstructive sleep apnea) Does not comply with CPAP Peripheral neuropathy (Chronic) 2/2 DM type II. Located on the feet bilaterally. Not requiring medication. Followed by podiatry Right-sided sensorineural hearing loss (Acute) Sinus bradycardia Sinus tachycardia (Acute) TMJ (dislocation of temporomandibular joint) (Acute) Umbilical hernia (Acute) Vitamin D insufficiency Previously deficient, taking Vit D supplementation Surgical History History of carpal tunnel surgery History of cholecystectomy S/P tonsillectomy Family History Father , age 57 of an [place]. Heart disease Myocardial infarction Mother , age 67 of a ruptured neck vessel Sudden Other Depression Lung disease No pertinent family history Social History Preferred Language: [place] Communication Ability: Effective Visual Impairment: No Limitations Clinic Physician Required: No Beliefs That Will Affect Care: None marital status: Current Living Situation: Spouse current occupational status: unemployed Feels Safe at Home: Yes Smoking Status: Former smoker Tobacco Type: cigarettes ; Age Started Using Tobacco: 14 ; Age Quit Using Tobacco: 18 ; Second Hand Exposure: No ; Hx Alcohol Use: No Hx Substance Use: No Review of Systems Review of Systems: All systems reviewed & are unremarkable except as noted in HPI & below Cardiovascular: + dyspnea; no chest pain, no chest pain at rest, no orthopnea, no palpitations and no syncope Physical Exam Physical Exam: Temp Pulse Resp BP Pulse Ox 36.5 C 86 18 127/81 93 01/15/19 15:26 01/15/19 15:26 01/15/19 15:26 01/15/19 15:26 01/15/19 15:26 Constitutional: + morbidly obese; no acute distress Respiratory: normal respiratory effort, lungs clear to auscultation Cardiovascular: Rate/Rhythm: regular rate Heart Sounds: no murmur Vessels: no JVD Extremities: no edema Gastrointestinal (Abdomen): normal bowel sounds, soft, nontender, no hepatosplenomegaly Neurologic: PERRL, EOMI, accommodation nl, no face palsy, no dysarthria Results & Data Vital Signs (Past 12 Hours) Vital Signs Temp Pulse Pulse Resp BP BP Pulse Ox 01/15/19 14:54 84 01/15/19 12:14 94 01/15/19 12:13 01/15/19 12:02 36.5 C 93 H 128/82 93 01/15/19 07:23 78 01/15/19 07:06 94 H 18 92 01/15/19 06:51 36.4 C L 93 H 24 149/95 H 94 01/15/19 04:16 97 H 01/15/19 04:07 36.5 C 93 H 20 143/87 H 94 01/15/19 03:54 36.5 C 97 H 26 H 159/105 H 94 Pulse Ox 01/15/19 14:54 01/15/19 12:14 01/15/19 12:13 94 01/15/19 12:02 01/15/19 07:23 01/15/19 07:06 01/15/19 06:51 01/15/19 04:16 01/15/19 04:07 01/15/19 03:54 Laboratory Results Cardiac Enzymes 01/14/19 01/15/19 01/15/19 Range/Units 22:16 07:03 12:44 AST 14 L (15-37) U/L Troponin I < 0.015 < 0.015 < 0.015 (0-0.045) ng/ml CBC 01/14/19 01/15/19 Range/Units 22:16 07:03 WBC 11.28 H 9.08 (4.8-10.8) K/uL RBC 5.43 5.25 (4.7-6.1) M/uL Hgb 15.9 15.4 (14.0-18.0) g/dL Hct 46.4 45.0 (42-52) % Plt Count 182 170 (130-400) K/uL Neut # (Auto) 8.72 H (1.4-6.5) K/uL Lymph # (Auto) 1.39 (1.2-3.4) K/uL [place] # (Auto) 1.00 H (0.11-0.59) K/uL Eos # (Auto) 0.12 (0-0.5) K/uL Baso # (Auto) 0.02 (0-0.2) K/uL Comprehensive Metabolic Panel 01/14/19 01/15/19 Range/Units 22:16 07:03 Sodium 138 139 (136-145) mmol/L Potassium 3.4 L 3.6 (3.5-5.1) mmol/L Chloride 109 H 109 H (98-107) mmol/L Carbon Dioxide 24 24 (21-32) mmol/L BUN 9 8 (7-18) mg/dl Creatinine 1.00 0.95 (0.6-1.4) mg/dl Glucose 165 H 127 H (70-99) mg/dl Calcium 9.1 9.1 (8.5-10.1) mg/dl AST 14 L (15-37) U/L ALT 21 (12-78) U/L Alkaline Phosphatase 100 (45-117) U/L Total Protein 8.0 (6.4-8.2) gm/dl Albumin 3.6 (3.4-5.0) gm/dl Intake and Output 01/15/19 01/15/19 01/15/19 06:59 14:59 22:59 Intake Total 120 / 120 680 / 680 Output Total 1175 / 1175 1949 Balance -1055 / -1055 -1270 / -1270 Intake: Oral 120 / 120 680 / 680 Output: Urine 1175 / 1175 1949 Other: Weight 157.6 kg Diagnostic Findings EKG performed on arrival 01/14/2019 at 2209: Sinus tachycardia 106 bpm, left ventricular hypertrophy with mild nonspecific repolarization changes, compared to the prior, sinus tachycardia is now noted as well as more prominent T waves in the lateral precordial leads.
[2019-01-16] MEDS: KETOROLAC TROMETHAMINE 15 MG/ML VIAL IV PRN (03:53)
[2019-01-16] MEDS: BUDESONIDE 0.25 MG/2 ML VIAL (PULMICORT) INH SCH ×2 (07:07→19:35)
[2019-01-16] MEDS: PANTOprazole 40 MG TAB PO SCH ×2 (08:13→20:34)
[2019-01-16] MEDS: CHOLECALCIFEROL 1,000 UNITS TAB PO SCH ×2 (08:13→20:34)
[2019-01-16] MEDS: SACUBITRIL-VALSARTAN 24-26 MG TAB PO SCH (08:13)
[2019-01-16] MEDS: ASPIRIN 81 MG ECTAB PO SCH (08:14)
[2019-01-16] MEDS: TORSEMIDE 10 MG TAB PO SCH (08:14)
[2019-01-16 08:15] LABS: Hematocrit (blood only) 50.5 % (42-52); Hemoglobin 17.7 g/dL (14.0-18.0); Mean Corpuscular Hemoglobin 29.3 pg (25-34); Mean Corpuscular Volume 83.5 fL (80-100); Platelet Count 178 K/uL (130-400); Red Blood Count 6.05 M/uL (4.7-6.1); White Blood Count 7.98 K/uL (4.8-10.8)
[2019-01-16] MEDS: SACUBITRIL-VALSARTAN 49/51 MG TAB PO SCH (08:15)
[2019-01-16] MEDS: ENOXAPARIN INJ 40 MG/0.4 ML SYR SQ SCH (08:15)
[2019-01-16] MEDS: metOLazone 5 MG TABLET PO SCH (08:15)
[2019-01-16] MEDS: SPIRONOLACTONE 25 MG TAB PO SCH (08:15)
[2019-01-16] MEDS: INSULIN GLARGINE SOLOSTAR 100 UNITS/ML 3 ML PEN SC SCH ×2 (08:15→20:49)
[2019-01-16] MEDS: INSULIN ASPART 100 UNITS/ML 3 ML PEN SC SCH ×4 (08:17→20:48)
[2019-01-16 08:37] LABS: BUN Creatinine Ratio 14.9 (10-20); Creatinine Clr Calc Pharmacy 72.5 ml/min; Est GFR (Non-African American) 42.3; Potassium 3.3 mmol/L (3.5-5.1)
[2019-01-16] MEDS ORDERED: POTASSIUM CHLORIDE 20 MEQ TABCR PO STA (09:22)
--- NOTE | 2019-01-16 09:44 | Cardiology Progress Note ---
Date of Service January 16, 2019 Assessment & Plan (1) Acute on chronic combined systolic and diastolic CHF (congestive heart failure): Patient clinically improved noted 4.5 L of urine output yesterday, net balance - 2.7 L. Blood pressure much improved. Unfortunately his creatinine increased from 0.95 yesterday to 1.91 mg/dL today. He already received his Entresto, torsemide, and metolazone this morning. I have placed a hold on these medications. The patient is eager for discharge, but given his renal insufficiency I would recommend he remains in the hospital. (2) NSVT (nonsustained ventricular tachycardia): Patient with 14 beat run of nonsustained ventricular tachycardia yesterday on 01/15/2019. This occurred in the setting of him having missed home doses of his beta- mansoor. A transthoracic echocardiogram was performed revealing moderate severe left ventricular systolic dysfunction, LVEF in the range of 30 to 35%, which is consistent with other echocardiograms performed at this institution previously. His ejection fraction had been improved up to 50 to 54% at the time his echocardiogram at [facility] in October of this year. Given his ongoing [place] [employer] functional class III congestive heart failure symptoms, history of nonischemic cardiomyopathy, with LVEF of less than 35%, placement of a single-chamber AICD of course is a consideration. I do however have concerns that the patient is of course at increased risk of tyler-procedure complication such as infection given his difficulty caring for himself. Also, it does appear that his ejection fraction is better when he is taking his medications. Placement of an AICD, would of course NOT be a substitute for medication adherence either in terms of improving his symptoms or his prognosis in terms of reducing his risk of sudden cardiac . His overall heart rates are improved. The sinus tachycardia noted on admission has improved with his administration of home beta-mansoor dose, and he has not had any additional episodes of nonsustained VT overnight last night or thus far this morning. (3) Acute kidney insufficiency: Worsened from 0.9-1.9. This was in the setting of significant diuretic effect, and he did receive 2 doses of Toradol. I have placed a hold on his Entresto, torsemide, metolazone. Recommend ongoing observation and repeat chemistry panel tomorrow. (4) Obstructive sleep apnea: Transient bradycardia down to the 40 bpm range was noted during sleep this morning that seem to be associated with apneic episodes. If he remains in the hospital, will need to order his home CPAP settings. DVT prophylaxis: Continue subcutaneous Lovenox. If renal function worsens, may need to transition to subcu heparin. Subjective CC: follow up shortness of breath Subjective: Patient seen in follow-up. He states he feels much better. Denies chest discomfort or shortness of breath. Denies subjective palpitations. Review of Systems Review of Systems: All systems reviewed & are unremarkable except as noted in HPI & below Cardiovascular: no chest pain with activity, no dyspnea at rest, no syncope and no edema Physical Exam Physical Exam: Temp Pulse Resp BP Pulse Ox 36.4 C L 82 18 124/82 96 01/16/19 07:49 01/16/19 07:49 01/16/19 07:49 01/16/19 07:49 01/16/19 07:49 Constitutional: WD/WN, vitals as above + morbidly obese Respiratory: normal respiratory effort, lungs clear to auscultation Cardiovascular: RRR, no murmur, no edema Gastrointestinal (Abdomen): normal bowel sounds, soft, nontender, no hepatosplenomegaly Neurologic: PERRL, EOMI, accommodation nl, no face palsy, no dysarthria Results & Data Vital Signs (Past 12 Hours) Vital Signs Temp Pulse Resp BP BP Pulse Ox 01/16/19 07:49 36.4 C L 82 18 124/82 96 01/16/19 07:09 64 18 95 01/16/19 03:58 36.5 C 66 20 92/65 L 92 01/15/19 23:09 36.6 C 95 H 20 108/78 94 Laboratory Results Cardiac Enzymes 01/15/19 Range/Units 12:44 Troponin I < 0.015 (0-0.045) ng/ml CBC 01/16/19 Range/Units 07:32 WBC 7.98 (4.8-10.8) K/uL RBC 6.05 (4.7-6.1) M/uL Hgb 17.7 (14.0-18.0) g/dL Hct 50.5 (42-52) % Plt Count 178 (130-400) K/uL Comprehensive Metabolic Panel 01/16/19 Range/Units 07:32 Sodium 134 L (136-145) mmol/L Potassium 3.3 L (3.5-5.1) mmol/L Chloride 101 (98-107) mmol/L Carbon Dioxide 23 (21-32) mmol/L BUN 29 H D (7-18) mg/dl Creatinine 1.91 H D (0.6-1.4) mg/dl Glucose 133 H (70-99) mg/dl Calcium 10.0 (8.5-10.1) mg/dl Intake and Output 01/15/19 01/16/19 01/16/19 22:59 06:59 14:59 Intake Total 1075 / 1855 100 / 1855 Output Total 2024 / 4575 600 / 4575 Balance -950 / -2720 -500 / -2720 Intake: Oral 107 / 1855 100 / 1855 Output: Urine 2024 600 / 4575 Other: Weight 151.9 kg Diagnostic Findings Echocardiogram performed yesterday 01/15/2019 reviewed independently revealed severe global left ventricular hypokinesis with LVEF in the range of 30-35%, moderate left ventricular chamber dilatation noted left ventricular end- diastolic dimension was 6.8 mm. The images were insufficient to allow calculation of left ventricular systolic and diastolic volumes as the apex was foreshortened. Medications Administered Current Inpatient Medications Aspirin (Ecotrin Ectab) 81 mg PO QAM [facility] Stop: 02/14/19 08:59 Last Admin: 01/16/19 08:14 Dose: 81 mg Documented by: Budesonide (Pulmicort Respules) 0.25 mg INH Q12 [facility] Stop: 02/14/19 08:59 Last Admin: 01/16/19 07:07 Dose: 0.25 mg Documented by: Dextrose (Dextrose 50%) 25 - 50 ml IV UD PRN; Protocol PRN Reason: Hypoglycemia Protocol Stop: 02/14/19 04:59 Enoxaparin Sodium (Lovenox) 40 mg SQ DAILY [facility] Stop: 02/14/19 08:59 Last Admin: 01/16/19 08:15 Dose: 40 mg Documented by: Glucagon (Glucagen) 1 mg SQ UD PRN; Protocol PRN Reason: Hypoglycemia Protocol Stop: 02/14/19 04:59 Glucose (Dex4 Glucose) 4 - 8 tabs PO UD PRN; Protocol PRN Reason: Hypoglycemia Protocol Stop: 02/14/19 04:59 Glucose (Glucose 40%) 15 - 30 gm PO UD PRN; Protocol PRN Reason: Hypoglycemia Protocol Stop: 02/14/19 04:59 Hydralazine HCl (Apresoline) 100 mg PO BID [facility] Stop: 02/14/19 08:59 Last Admin: 01/15/19 21:13 Dose: 100 mg Documented by: Insulin Aspart (Novolog Flexpen) 0 units SC ACHS [facility] Stop: 02/14/19 07:29 Last Admin: 01/16/19 08:17 Dose: 5 units Documented by: Insulin Glargine (Lantus Solostar Pen) 25 units SC BID [facility] Stop: 02/14/19 08:59 Last Admin: 01/16/19 08:15 Dose: 25 units Documented by: Ipratropium [place] (Atrovent 0.02% 0.5mg/2.5ml) 0.5 mg INH Q6R PRN PRN Reason: SHORTNESS OF BREATH/WHEEZING Stop: 02/14/19 03:44 Last Admin: 01/15/19 07:02 Dose: 0.5 mg Documented by: Ketorolac Tromethamine (Toradol) 15 mg IV Q6H PRN PRN Reason: Mild pain/fever Stop: 01/20/19 03:44 Last Admin: 01/16/19 03:53 Dose: 15 mg Documented by: Levalbuterol HCl (Xopenex 1.25mg/0.5ml Neb) 1.25 mg INH Q6R PRN PRN Reason: SHORTNESS OF BREATH/WHEEZING Stop: 02/14/19 06:59 Last Admin: 01/15/19 07:02 Dose: 1.25 mg Documented by: Metoprolol Succinate (Toprol Xl) 200 mg PO QAM [facility] Stop: 02/14/19 08:59 Last Admin: 01/15/19 08:59 Dose: 200 mg Documented by: Miscellaneous (Carbohydrates For Hypoglycemia) 15 - 30 gm PO UD PRN PRN Reason: Hypoglycemia Protocol Stop: 02/14/19 04:59 Nitroglycerin (Nitrostat) 0.4 mg SL PRN PRN PRN Reason: Chest Pain Stop: 02/14/19 03:44 Ondansetron HCl (Zofran) 4 mg IV Q6H PRN PRN Reason: nausea or vomiting Stop: 02/14/19 03:44 Pantoprazole Sodium (Protonix) 40 mg PO BID [facility] Stop: 02/14/19 08:59 Last Admin: 01/16/19 08:13 Dose: 40 mg Documented by: Sacubitril/Valsartan (Entresto 24/26mg) 2 tab PO BID [facility] Stop: 02/14/19 08:59 Last Admin: 01/16/19 08:13 Dose: 2 tab Documented by: Sacubitril/Valsartan (Entresto 49/51mg) 1 tab PO BID [facility] Stop: 02/14/19 08:59 Last Admin: 01/16/19 08:15 Dose: 1 tab Documented by: Spironolactone (Aldactone) 25 mg PO QAM [facility] Stop: 02/14/19 08:59 Last Admin: 01/16/19 08:15 Dose: 25 mg Documented by: Torsemide (Demadex) 60 mg PO BID17 [facility] Stop: 02/14/19 08:59 Last Admin: 01/16/19 08:14 Dose: 60 mg Documented by: Vitamin D (Vitamin D3) 2,000 units PO BID [facility] Stop: 02/14/19 08:59 Last Admin: 01/16/19 08:13 Dose: 2,000 units Documented by:
[2019-01-16] MEDS: METOPROLOL SUCC 50MG EXT REL TAB PO SCH (10:03)
[2019-01-16] MEDS: HydrALAZINE TAB 50 MG TAB PO SCH ×2 (10:03→20:32)
--- NOTE | 2019-01-16 10:21 | XCELERA ---
[id number] [id number]
[2019-01-16] MEDS: POTASSIUM CHLORIDE 20 MEQ TABCR PO SCH ×2 (11:18→20:33)
--- NOTE | 2019-01-16 20:10 | Ultrasound Report ---
ULTRASOUND SOFT TISSUES NECK CLINICAL HISTORY: Palpable nodules. COMPARISON STUDY: CT scan of the neck dated 03/26/2018. FINDINGS: Real-time, grayscale, and color flow sonography of the soft tissues of the neck is performe d at the indicated sites of interest. There is a 1.3 x 0.7 x 1.2 cm nonvascular subcutaneous nodule i n the left lateral neck at one of the sites of interest. This demonstrate increased through transmiss ion and appears to demonstrate a connection to the dermal surface. This likely corresponds to a small sebaceous cyst when correlated with the 03/26/[address] At the second site of interest in the lef t lateral neck there is an ovoid well-circumscribed nonvascular echogenic nodule just deep to the ernie mal surface. This measures 1.0 x 0.7 x 0.7 cm. This is pathologically indeterminant and was not clear ly seen on the CT scan of the neck. No lymphadenopathy is identified. IMPRESSION: 1. There are 2 small soft tissue nodules seen just deep to the dermal surface at the indicated sites of interest. 2. The hypoechoic complex nodule likely represents a sebaceous cyst and was also seen on a previous C T scan of the neck. 3. The second echogenic nodule is pathologically indeterminant but of low suspicion. This was not shamar glenna seen on the prior CT scan and may represent a tiny lipoma. Clinical follow-up is recommended. If this enlarges then repeat ultrasound could be considered. Electronically signed by: Abhilash Carpio M.D. 01/16/2019 8:09 PM
[2019-01-16] MEDS ORDERED: OXYCODONE/ACETAMINOPHEN 5mg/325mg TAB PO ONE (20:30)
--- NOTE | 2019-01-16 21:57 | Hospitalist Progress Note ---
Date of Service January 16, 2019 Assessment & Plan (1) Acute on chronic combined systolic and diastolic CHF (congestive heart failure): Admit to PCU supplemental oxygen nasal cannula at 2 L Patient has responded to lasix and metolazone. However his kidney numbers worsened and patient developed Acute kidney injury. will hold evening diuretics and will monitor re-evaluate need for further IV diuretic in the am Continue torsemide 60mg BID It appears very likely patient is not compliant as he reports feeling tired after taking his medication. monitor lytes CHF order set used (2) Hypertensive urgency: Improved after IV doses x2 of labetalol. (3) Diabetes mellitus, type II: Continue Insulin and Trulicity Sliding scale ass needed for coverage ADA diet (4) Sinus tachycardia: (5) GERD (gastroesophageal reflux disease): Continue Nexium (6) COPD (chronic obstructive pulmonary disease): No sign of exacerbation at this time Xopenex and Atrovent nebs ordered. (7) Dyslipidemia: (8) Acute kidney insufficiency: Creatinine jumped up to 1.9 Will keep patient in hospital and hold eveenig diuretics. (9) Lymphadenopathy of head and neck: will obtain soft tissue ultrasound as this was ordered as an outpatient. will defer management to PCP. Subjective 43 yo male reports feeling well. He states he would like to go home. Patient asks if there is any way he heart function will improve. Patient reports being compliant with his diuretics while at home. Review of Systems Review of Systems: Constitutional- no fever; no weight loss Eyes- no acute visual changes ENT- no sinus drainage; no pharyngitis Pulmonary- As in HPI Cardiac- As in HPI, no increase in edema of ankles. GI- no nausea, no vomiting, no diarrhea, no melena, no hematochezia - no dysuria, no hematuria Musculoskeletal- no new arthralgias, no myalgias Derm- no rashes, no new skin lesions Lymphatics- no adenopathy Endocrine- no polyuria or polydipsia; no heat or cold intolerance Neuro- no headaches, no focal neurologic symptoms Psych- no anxiety, no depression Physical Exam Physical Exam: General- adult male, NAD Head- atraumatic Eyes- PERRL, EOMI, anicteric ENT- oropharynx clear Neck- supple, no JVD, no adenopathy, no thyromegaly. Lungs- Crackles lower lung field b/l. No wheezes appreciated. Heart- regular rhythm; no murmur, no gallop, no rub appreciated Abdomen- normal bowel sounds, soft, nontender. Extremities- + 2 pitting edema b/l ankles. no calf tenderness; peripheral pulses intact Neuro- alert, oriented x 3; PERRL, EOMI, community relations officer II-XII grossly intact, non-focal. Skin- warm & dry Results & Data Vital Signs (Past 12 Hours) Vital Signs Temp Pulse Resp BP BP Pulse Ox 01/16/19 19:41 36.2 C L 90 20 100/68 94 01/16/19 19:38 86 16 96 01/16/19 15:33 36.2 C L 86 18 122/77 95 01/16/19 11:20 98/65 L 01/16/19 11:00 36.3 C L 82 18 98/65 L 92 PG Care Time/CCT Total # of Minutes Spent Total Time Spent with Patient: Total time spent is greater than 50% in coordination of care (as documented) at patient's floor/unit and/or counseling patient: (1) Diabetes mellitus, type II Diabetes mellitus complication status: with other specified complication Diabetes mellitus roasterman insulin use: with roasterman use Qualified Code(s): E11.69 - Type 2 diabetes mellitus with other specified complication; Z79.4 - half-way (current) use of insulin (2) COPD (chronic obstructive pulmonary disease) COPD type: unspecified COPD Qualified Code(s): J44.9 - Chronic obstructive pulmonary disease, unspecified (3) GERD (gastroesophageal reflux disease) Esophagitis presence: without esophagitis Qualified Code(s): K21.9 - Gastro- esophageal reflux disease without esophagitis
[2019-01-16] MEDS ORDERED: SODIUM CHLORIDE 0.9% 1000ML 500 ML IV ONE (23:34)
[2019-01-17] MEDS: BUDESONIDE 0.25 MG/2 ML VIAL (PULMICORT) INH SCH ×2 (06:57→19:41)
[2019-01-17 07:38] LABS: Hematocrit (blood only) 51.8 % (42-52); Hemoglobin 17.8 g/dL (14.0-18.0); Mean Corpuscular Hemoglobin 29.4 pg (25-34); Mean Corpuscular Hgb Conc 34.4 g/dL (32-36); Mean Corpuscular Volume 85.5 fL (80-100); Platelet Count 210 K/uL (130-400); RDW Coefficient of Variation 15.2 % (11.5-14.5); RDW Standard Deviation 47.5 fL (36.4-46.3); Red Blood Count 6.06 M/uL (4.7-6.1); White Blood Count 13.66 K/uL (4.8-10.8)
[2019-01-17 08:11] LABS: BUN Creatinine Ratio 14.9 (10-20); Calcium 9.2 mg/dl (8.5-10.1); Est GFR (African American) 22.2; Est GFR (Non-African American) 19.2; Potassium 3.9 mmol/L (3.5-5.1)
[2019-01-17] MEDS: PANTOprazole 40 MG TAB PO SCH ×2 (09:01→21:02)
[2019-01-17] MEDS: ASPIRIN 81 MG ECTAB PO SCH (09:01)
[2019-01-17] MEDS: CHOLECALCIFEROL 1,000 UNITS TAB PO SCH ×2 (09:02→21:04)
[2019-01-17] MEDS: INSULIN GLARGINE SOLOSTAR 100 UNITS/ML 3 ML PEN SC SCH ×2 (09:02→21:05)
[2019-01-17] MEDS: INSULIN ASPART 100 UNITS/ML 3 ML PEN SC SCH ×4 (09:03→21:06)
[2019-01-17] MEDS: HydrALAZINE TAB 50 MG TAB PO SCH (09:56)
[2019-01-17] MEDS: ENOXAPARIN INJ 40 MG/0.4 ML SYR SQ SCH (09:57)
[2019-01-17] MEDS: METOPROLOL SUCC 50MG EXT REL TAB PO SCH (09:57)
[2019-01-17] MEDS: SPIRONOLACTONE 25 MG TAB PO SCH (09:57)
[2019-01-17] MEDS: SODIUM CHLORIDE 0.9% 500 ML IV SCH ×2 (10:03→18:00)
[2019-01-17] MEDS: POTASSIUM CHLORIDE 20 MEQ TABCR PO SCH (10:03)
--- NOTE | 2019-01-17 10:05 | Cardiology Progress Note ---
Date of Service January 17, 2019 Assessment & Plan (1) MIKEY (acute kidney injury): Creatinine worseing 0.9 -->1.9--> 3.6. Hold hydralazine, Entresto, metolatzone, torsemide, spironolactone, and KCL. Likely ANT / prerenal with vigorous diuresis, and received two doses of toradol 15 mg for low back pain. Proceed with gentl IVF, NS at 80 ml/hr. If no improvement in 24-48 hrs consider nephro consult. (2) Nonischemic cardiomyopathy: Volume status difficult to assess given his body habitus. Holding meds with exception of beta mansoor. Metoprolol succinate 200 mg stopped. Start metoprolol tartrate 100 mg BID for ease of titration, short acting effects for now. (3) Hypertensive urgency: Labile BPs. Presented with BP of 219/149 on 01/14. Then after 2 days of medication, BP down to 70's to 80's. Holding meds. Has required high dose BP meds in past on a chronic basis. (4) NSVT (nonsustained ventricular tachycardia): Continue metoprolol. Have 14 beat run of NSVT on 01/15, no recurrence, only rare PVCs overnight. As discussed in my 01/16 night has LVEF of 30-35%, NYHA functional class II-III CHF, and NSVT. However also has issues with adherence. Subjective Patient seen in cardiology follow up. Patient had hypotension overnight with BP of 73/60, had transient visual disturbances.SBP improved to the upper 90s at present, and pt feeling back to normal. Worsening renal function noted on labs. Review of Systems Review of Systems: All systems reviewed & are unremarkable except as noted in HPI & below Cardiovascular: no chest pain with activity, no dyspnea at rest and no syncope Neurologic: transient visual disturbance was associated with low BP, now resolved. Physical Exam Physical Exam: Temp Pulse Resp BP Pulse Ox 36.7 C 79 22 94/62 L 95 01/17/19 07:56 01/17/19 07:56 01/17/19 07:56 01/17/19 07:56 01/17/19 07:56 Constitutional: + morbidly obese Respiratory: normal respiratory effort, lungs clear to auscultation Cardiovascular: RRR, no murmur, no edema Gastrointestinal (Abdomen): normal bowel sounds, soft, nontender, no hepatosplenomegaly Neurologic: PERRL, EOMI, accommodation nl, no face palsy, no dysarthria Results & Data Vital Signs (Past 12 Hours) Vital Signs Temp Pulse Pulse Resp BP BP Pulse Ox 01/17/19 07:56 36.7 C 79 22 94/62 L 95 01/17/19 07:00 76 18 96 01/17/19 04:10 65 11 L 98 01/17/19 03:40 36.6 C 73 20 93/64 L 96 01/17/19 01:04 60 20 108/74 95 01/16/19 23:49 71 16 94 01/16/19 23:36 65 97/64 L 97 01/16/19 23:30 68 117/68 96 01/16/19 23:25 73 86/65 L 96 01/16/19 23:19 68 93/63 L 95 01/16/19 23:13 65 83/55 L 95 01/16/19 23:10 69 84/60 L 95 01/16/19 22:55 73 85/48 L 96 01/16/19 22:52 77 73/60 L 98 01/16/19 22:38 79 89/73 L 98 01/16/19 22:30 79 90/50 L 98 Laboratory Results CBC 01/17/19 Range/Units 07:12 WBC 13.66 H (4.8-10.8) K/uL RBC 6.06 (4.7-6.1) M/uL Hgb 17.8 (14.0-18.0) g/dL Hct 51.8 (42-52) % Plt Count 210 (130-400) K/uL Comprehensive Metabolic Panel 01/17/19 Range/Units 07:12 Sodium 134 L (136-145) mmol/L Potassium 3.9 D (3.5-5.1) mmol/L Chloride 101 (98-107) mmol/L Carbon Dioxide 22 (21-32) mmol/L BUN 55 H D (7-18) mg/dl Creatinine 3.67 H D (0.6-1.4) mg/dl Glucose 164 H (70-99) mg/dl Calcium 9.2 (8.5-10.1) mg/dl Intake and Output 01/16/19 01/17/19 01/17/19 22:59 06:59 14:59 Intake Total 200 / 465 Output Total 900 / 1250 Balance -700 / -785 Intake: Oral 200 / 465 Output: Urine 900 / 1250 Other: Weight 153.8 kg
[2019-01-17] MEDS: HEPARIN SOD 5,000 UNIT/0.5 ML VIAL SQ SCH ×2 (11:39→21:03)
[2019-01-17] MEDS: METOPROLOL TARTRATE 100 MG TAB PO SCH ×2 (11:39→21:19)
[2019-01-17] MEDS: SODIUM CHLORIDE 0.9% 1000ML 1,000 ML IV SCH (18:39)
--- NOTE | 2019-01-17 22:40 | Hospitalist Progress Note ---
Date of Service January 17, 2019 Assessment & Plan (1) Acute on chronic combined systolic and diastolic CHF (congestive heart failure): Admit to PCU supplemental oxygen nasal cannula at 2 L Patient has responded to lasix and metolazone. However his kidney numbers worsened and patient developed Acute kidney injury. will hold evening diuretics and will monitor. Creatinine continued to worsen on 01/17, will hold diuretics. It appears very likely patient is not compliant as he reports feeling tired after taking his medication. monitor lytes CHF order set used (2) Hypertensive urgency: Improved after IV doses x2 of labetalol. (3) Diabetes mellitus, type II: Continue Insulin and Trulicity Sliding scale ass needed for coverage ADA diet (4) Sinus tachycardia: (5) GERD (gastroesophageal reflux disease): Continue Nexium (6) COPD (chronic obstructive pulmonary disease): No sign of exacerbation at this time Xopenex and Atrovent nebs ordered. (7) Dyslipidemia: (8) Acute kidney insufficiency: Creatinine jumped up to 3 Will keep patient in hospital and hold diuretics. (9) Lymphadenopathy of head and neck: will obtain soft tissue ultrasound as this was ordered as an outpatient; waiting results. will defer management to PCP. Subjective Patient reports feeling well. He actually states that he has more energy today. Review of Systems Review of Systems: Constitutional- no fever; no weight loss Eyes- no acute visual changes ENT- no sinus drainage; no pharyngitis Pulmonary- As in HPI Cardiac- As in HPI, no increase in edema of ankles. GI- no nausea, no vomiting, no diarrhea, no melena, no hematochezia - no dysuria, no hematuria Musculoskeletal- no new arthralgias, no myalgias Derm- no rashes, no new skin lesions Lymphatics- no adenopathy Endocrine- no polyuria or polydipsia; no heat or cold intolerance Neuro- no headaches, no focal neurologic symptoms Psych- no anxiety, no depression Physical Exam Physical Exam: General- adult male, NAD Head- atraumatic Eyes- PERRL, EOMI, anicteric ENT- oropharynx clear Neck- supple, no JVD, no adenopathy, no thyromegaly. Lungs- Crackles lower lung field b/l. No wheezes appreciated. Heart- regular rhythm; no murmur, no gallop, no rub appreciated Abdomen- normal bowel sounds, soft, nontender. Extremities- + 2 pitting edema b/l ankles. no calf tenderness; peripheral pulses intact Neuro- alert, oriented x 3; PERRL, EOMI, peoplesoft II-XII grossly intact, non-focal. Skin- warm & dry Results & Data Vital Signs (Past 12 Hours) Vital Signs Temp Pulse Resp BP BP Pulse Ox 01/17/19 21:19 97/65 L 01/17/19 19:42 81 18 96 01/17/19 19:41 37.0 C 82 20 94/62 L 94 01/17/19 15:19 36.7 C 83 22 95/56 L 95 01/17/19 12:08 36.5 C 45 L 19 105/57 L 97 PG Care Time/CCT Total # of Minutes Spent Total Time Spent with Patient: Total time spent is greater than 50% in coordination of care (as documented) at patient's floor/unit and/or counseling patient: (1) Diabetes mellitus, type II Diabetes mellitus complication status: with other specified complication Diabetes mellitus buttermaker continuous churn insulin use: with chcf use Qualified Code(s): E11.69 - Type 2 diabetes mellitus with other specified complication; Z79.4 - superintendent container terminal (current) use of insulin (2) COPD (chronic obstructive pulmonary disease) COPD type: unspecified COPD Qualified Code(s): J44.9 - Chronic obstructive pulmonary disease, unspecified (3) GERD (gastroesophageal reflux disease) Esophagitis presence: without esophagitis Qualified Code(s): K21.9 - Gastro- esophageal reflux disease without esophagitis
[2019-01-18] MEDS: SODIUM CHLORIDE 0.9% 1000ML 1,000 ML IV SCH (06:00)
[2019-01-18] MEDS: HEPARIN SOD 5,000 UNIT/0.5 ML VIAL SQ SCH ×3 (06:00→21:01)
[2019-01-18 06:57] LABS: Albumin Level 3.2 gm/dl (3.4-5.0); BUN Creatinine Ratio 24.7 (10-20); Calcium 9.2 mg/dl (8.5-10.1); Creatinine Clr Calc Pharmacy 56.9 ml/min; Est GFR (African American) 36.1; Est GFR (Non-African American) 31.1; Potassium 3.2 mmol/L (3.5-5.1)
[2019-01-18] MEDS: BUDESONIDE 0.25 MG/2 ML VIAL (PULMICORT) INH SCH ×2 (06:57→19:23)
[2019-01-18 07:00] LABS: Albumin Globulin Ratio 0.7 (0.9-2); Bilirubin,Total 0.6 mg/dl (0.2-1); Globulin 4.3 gm/dl (2.5-4.0); Total Protein 7.5 gm/dl (6.4-8.2)
[2019-01-18] MEDS ORDERED: POTASSIUM CHLORIDE 20 MEQ TABCR PO STA (08:08)
[2019-01-18] MEDS: CHOLECALCIFEROL 1,000 UNITS TAB PO SCH ×2 (08:50→20:51)
[2019-01-18] MEDS: METOPROLOL TARTRATE 100 MG TAB PO SCH ×2 (08:50→20:53)
[2019-01-18] MEDS: PANTOprazole 40 MG TAB PO SCH ×2 (08:50→20:52)
[2019-01-18] MEDS: ASPIRIN 81 MG ECTAB PO SCH (08:50)
[2019-01-18] MEDS: INSULIN GLARGINE SOLOSTAR 100 UNITS/ML 3 ML PEN SC SCH ×2 (08:50→20:59)
[2019-01-18] MEDS: INSULIN ASPART 100 UNITS/ML 3 ML PEN SC SCH ×4 (08:51→20:58)
--- NOTE | 2019-01-18 11:31 | Cardiology Progress Note ---
Date of Service January 18, 2019 Assessment & Plan (1) MIKEY (acute kidney injury): Creatinine trending downward today. Continue to hold hydralazine, Entresto, metolatzone, torsemide, spironolactone, and KCL. Avoid NSAIDs. Discontinue IV fluid. (2) Nonischemic cardiomyopathy: Volume status difficult to assess given his body habitus. Holding meds with exception of beta mansoor. Continue metoprolol tartrate 100 mg BID for ease of titration, short acting effects for now. (3) Hypertensive urgency: Labile BPs. Presented with BP of 219/149 on 01/14. Then after 2 days of medication, BP down to 70's to 80's. Holding meds. Has required high dose BP meds in past on a chronic basis. (4) NSVT (nonsustained ventricular tachycardia): Continue metoprolol. Have 14 beat run of NSVT on 01/15, no recurrence, only rare PVCs overnight. LVEF of 30-35%, NYHA functional class II-III CHF, and NSVT. However also has issues with adherence. Subjective Patient seen and examined at the bedside. Anxious for discharge. Creatinine trending downward. Fluid balance +2.2 L over the past 24 hours. Weight is up 1.5 kg. Patient denies chest pain or shortness of breath. Offers no complaints at this time. Review of Systems Review of Systems: All systems reviewed & are unremarkable except as noted in HPI & below Physical Exam Constitutional: + morbidly obese Respiratory: normal respiratory effort, lungs clear to auscultation Cardiovascular: Rate/Rhythm: regular rate and regular rhythm Heart Sounds: no murmur Extremities: no edema Neurologic: PERRL, EOMI, accommodation nl, no face palsy, no dysarthria Results & Data Vital Signs (Past 12 Hours) Vital Signs Temp Pulse Pulse Resp BP BP Pulse Ox 01/18/19 08:45 128/93 01/18/19 08:09 36.3 C L 74 22 96 01/18/19 08:00 74 01/18/19 06:57 73 20 96 01/18/19 05:57 36.6 C 43 L 20 101/65 96 01/18/19 00:37 36.8 C 60 18 97/61 L 95 01/18/19 00:30 65 16 98
[2019-01-18] MEDS ORDERED: Nursing to Pharmacy Communication ONE (16:40)
[2019-01-18] MEDS ORDERED: TRULICITY 1.5 MG SC ONE (19:29)
--- NOTE | 2019-01-18 21:19 | Hospitalist Progress Note ---
Date of Service January 18, 2019 Assessment & Plan (1) Acute on chronic combined systolic and diastolic CHF (congestive heart failure): Admit to PCU supplemental oxygen nasal cannula at 2 L Patient has responded to lasix and metolazone. However his kidney numbers worsened and patient developed Acute kidney injury. will hold evening diuretics and will monitor. Creatinine improved on 01/18, not back to baseline yet; will hold diuretics. It appears very likely patient is not compliant at home. CHF order set used (2) Hypertensive urgency: Improved after IV doses x2 of labetalol. (3) Diabetes mellitus, type II: Continue Insulin and Trulicity Sliding scale ass needed for coverage ADA diet (4) Sinus tachycardia: (5) GERD (gastroesophageal reflux disease): Continue Nexium (6) COPD (chronic obstructive pulmonary disease): No sign of exacerbation at this time Xopenex and Atrovent nebs ordered. (7) Dyslipidemia: (8) Acute kidney insufficiency: Creatinine improved but not at baseline. Will keep patient in hospital and hold diuretics. (9) Lymphadenopathy of head and neck: will obtain soft tissue ultrasound as this was ordered as an outpatient; waiting results. will defer management to PCP. Subjective 43 yo male reports feeling back to his baseline. Review of Systems Review of Systems: Constitutional- no fever; no weight loss Eyes- no acute visual changes ENT- no sinus drainage; no pharyngitis Pulmonary- As in HPI Cardiac- As in HPI, no increase in edema of ankles. GI- no nausea, no vomiting, no diarrhea, no melena, no hematochezia - no dysuria, no hematuria Musculoskeletal- no new arthralgias, no myalgias Derm- no rashes, no new skin lesions Lymphatics- no adenopathy Endocrine- no polyuria or polydipsia; no heat or cold intolerance Neuro- no headaches, no focal neurologic symptoms Psych- no anxiety, no depression Physical Exam Physical Exam: General- adult male, NAD Head- atraumatic Eyes- PERRL, EOMI, anicteric ENT- oropharynx clear Neck- supple, no JVD, no adenopathy, no thyromegaly. Lungs- Crackles lower lung field b/l. No wheezes appreciated. Heart- regular rhythm; no murmur, no gallop, no rub appreciated Abdomen- normal bowel sounds, soft, nontender. Extremities- + 2 pitting edema b/l ankles. no calf tenderness; peripheral pulses intact Neuro- alert, oriented x 3; PERRL, EOMI, central office equipment installer II-XII grossly intact, non-focal. Skin- warm & dry Results & Data Vital Signs (Past 12 Hours) Vital Signs Temp Pulse Pulse Resp BP BP Pulse Ox 01/18/19 19:26 77 18 96 01/18/19 19:08 36.6 C 77 18 103/56 L 96 01/18/19 16:40 36.4 C L 53 L 18 111/75 97 01/18/19 15:23 80 01/18/19 13:03 36.8 C 63 16 98/67 L 94 PG Care Time/CCT Total # of Minutes Spent Total Time Spent with Patient: Total time spent is greater than 50% in coordination of care (as documented) at patient's floor/unit and/or counseling patient: (1) Diabetes mellitus, type II Diabetes mellitus complication status: with other specified complication Diabetes mellitus tank terminal gauger insulin use: with tank terminal gauger use Qualified Code(s): E11.69 - Type 2 diabetes mellitus with other specified complication; Z79.4 - buttermaker continuous churn (current) use of insulin (2) COPD (chronic obstructive pulmonary disease) COPD type: unspecified COPD Qualified Code(s): J44.9 - Chronic obstructive pulmonary disease, unspecified (3) GERD (gastroesophageal reflux disease) Esophagitis presence: without esophagitis Qualified Code(s): K21.9 - Gastro- esophageal reflux disease without esophagitis
[2019-01-19] MEDS: HEPARIN SOD 5,000 UNIT/0.5 ML VIAL SQ SCH (05:12)
[2019-01-19] MEDS: BUDESONIDE 0.25 MG/2 ML VIAL (PULMICORT) INH SCH (07:32)
[2019-01-19] MEDS: INSULIN ASPART 100 UNITS/ML 3 ML PEN SC SCH ×2 (08:32→11:59)
[2019-01-19] MEDS: PANTOprazole 40 MG TAB PO SCH (08:33)
[2019-01-19] MEDS: METOPROLOL TARTRATE 100 MG TAB PO SCH (08:33)
[2019-01-19] MEDS: CHOLECALCIFEROL 1,000 UNITS TAB PO SCH (08:33)
[2019-01-19] MEDS: ASPIRIN 81 MG ECTAB PO SCH (08:34)
[2019-01-19] MEDS: INSULIN GLARGINE SOLOSTAR 100 UNITS/ML 3 ML PEN SC SCH (08:34)
[2019-01-19 09:34] LABS: BUN Creatinine Ratio 29.6 (10-20); Calcium 9.1 mg/dl (8.5-10.1); Creatinine Clr Calc Pharmacy 111.7 ml/min; Est GFR (African American) 81.8; Est GFR (Non-African American) 70.6; Potassium 3.5 mmol/L (3.5-5.1)
--- NOTE | 2019-01-19 10:54 | Cardiology Progress Note ---
Date of Service January 19, 2019 Assessment & Plan (1) MIKEY (acute kidney injury): Creatinine has trended down to baseline. Continue to hold hydralazine, and metolatzone, Restart torsemide, spironolactone, entresto, and KCL in AM 01/20. Avoid NSAIDs. Importance of compliance discussed at length. Repeat basic metabolic panel Sunday or Sunday this week. Close cardiology follow-up with the heart failure clinic in 5 days. (2) Nonischemic cardiomyopathy: Transition metoprolol tartrate to succinate formulation at discharge. (3) Hypertensive urgency: Labile BPs. Presented with BP of 219/149 on 01/14. Remains borderline hypotensive for the past few days. I suspect secondary to aggressive diuresis (4) NSVT (nonsustained ventricular tachycardia): Continue metoprolol. Have 14 beat run of NSVT on 01/15, no recurrence, only rare PVCs overnight. LVEF of 30-35%, NYHA functional class II-III CHF, and NSVT. However also has issues with adherence. Subjective Patient seen and examined at the bedside. Anxious for discharge. Creatinine has trended down to baseline. Fluid balance negative 1100cc despite withholding diuretics. Borderline hypotension persists. Review of Systems Review of Systems: All systems reviewed & are unremarkable except as noted in HPI & below Physical Exam Constitutional: + morbidly obese Respiratory: normal respiratory effort, lungs clear to auscultation Cardiovascular: Rate/Rhythm: regular rate and regular rhythm Heart Sounds: no murmur Extremities: no edema Neurologic: PERRL, EOMI, accommodation nl, no face palsy, no dysarthria Results & Data Vital Signs (Past 12 Hours) Vital Signs Temp Pulse Pulse Resp BP BP Pulse Ox 01/19/19 08:00 60 01/19/19 07:33 74 20 95 01/19/19 07:32 36.5 C 71 24 95/62 L 95 01/19/19 04:00 36.4 C L 53 L 18 109/62 95 01/19/19 01:05 36.5 C 73 22 145/83 H 96 01/18/19 23:00 81
--- NOTE | 2019-01-22 16:47 | Discharge Summary ---
Date of Service January 19, 2019 Admission HPI Per Admitting Provider 43 y/o male presented to the ED with a 6 hour history of worsening SOB. The patient declines having chest pain, cough, or F/C. He did report feeling weak after walking outside. He was given a dose of IV Lasix in the ED and placed on supplemental oxygen which the patient feels has allowed him to feel better. He states that this feels like when he is "holding too much water". No N/V/D, change in medications, or increased salt or fluid intake. Principal Diagnosis Acute systolic heart failure Discharge Exam General- adult male, NAD Head- atraumatic Eyes- PERRL, EOMI, anicteric ENT- oropharynx clear Neck- supple, no JVD, no adenopathy, no thyromegaly. Lungs- Crackles lower lung field b/l. No wheezes appreciated. Heart- regular rhythm; no murmur, no gallop, no rub appreciated Abdomen- normal bowel sounds, soft, nontender. Extremities- + 2 pitting edema b/l ankles. no calf tenderness; peripheral pulses intact Neuro- alert, oriented x 3; PERRL, EOMI, production supv II-XII grossly intact, non-focal. Skin- warm & dry Discharge Data Allergies Allergy/AdvReac Type Severity Reaction Status Date / Time ceftriaxone Allergy Severe SHORTNESS Verified 01/14/19 22:08 OF BREATH lidocaine Allergy Severe SHORTNESS Verified 01/14/19 22:08 OF BREATH, diaphoretic, hives procaine Allergy Severe SHORTNESS Verified 01/14/19 22:08 OF BREATH, diaphoretic, hives amoxicillin Allergy Intermediate HIVES/FACIAL Verified 01/14/19 22:08 SWELLING clavulanic acid Allergy Intermediate HIVES/FACIAL Verified 01/14/19 22:08 SWELLING lisinopril Allergy Intermediate HIVES Verified 01/14/19 22:08 albuterol Allergy Mild proair Verified 01/14/19 22:08 "trouble taking breaths" acetaminophen AdvReac Mild NAUSEA Verified 01/14/19 22:08 Consultations 01/15/19 00:59 ED Decision to Admit Stat 01/15/19 14:04 Consult Cardiology Routine Ordered Studies 01/14/19 22:55 CT angio chest PE protocol Urgent 01/16/19 16:45 US soft tissue head and neck Routine Hospital Course (1) Acute on chronic combined systolic and diastolic CHF (congestive heart failure): Admit to PCU supplemental oxygen nasal cannula at 2 L Initially Patient had responded to lasix and metolazone. However his kidney numbers worsened and patient developed Acute kidney injury. will hold evening diuretics and will monitor. It appears very likely patient is not compliant at home. CHF order set used Patient improved and returned to his baseline on day of discharge. Appreciate input from cardio on discharge: Creatinine has trended down to baseline. Continue to hold hydralazine, and metolatzone, Restart torsemide, spironolactone, entresto, and KCL in AM 12/9. Avoid NSAIDs. Importance of compliance discussed at length. Repeat basic metabolic panel Sunday or Sunday this week. Close cardiology follow-up with the heart failure clinic in 5 days. (2) Hypertensive urgency: Improved after IV doses x2 of labetalol. (3) Diabetes mellitus, type II: Continue Insulin and Trulicity Sliding scale ass needed for coverage ADA diet (4) Sinus tachycardia: (5) GERD (gastroesophageal reflux disease): Continue Nexium (6) COPD (chronic obstructive pulmonary disease): No sign of exacerbation at this time Xopenex and Atrovent nebs ordered. (7) Dyslipidemia: (8) Acute kidney insufficiency: Creatinine improved but not at baseline. Will keep patient in hospital and hold diuretics. (9) Lymphadenopathy of head and neck: will obtain soft tissue ultrasound as this was ordered as an outpatient; 1. There are 2 small soft tissue nodules seen just deep to the dermal surface at the indicated sites of interest. 2. The hypoechoic complex nodule likely represents a sebaceous cyst and was also seen on a previous CT scan of the neck. 3. The second echogenic nodule is pathologically indeterminant but of low suspicion. This was not clearly seen on the prior CT scan and may represent a tiny lipoma. Clinical follow-up is recommended. If this enlarges then repeat ultrasound could be considered. will defer management to PCP. Total Time Total Time Spent Total Time Spent (In Minutes): 32 Total Time Includes: Examination of the Patient, Discharge Planning and Medicati on Reconciliation Discharge Plan Discharge Items Patient Disposition: Home - Self-Care Reason For Visit: ACUTE ON CHRONIC COMBINED SYSTOLIC / DIASTOLIC CHF Discharge Diagnosis: Acute on Chronic combined systolic/ diastolic congestive heart failure Activity: Resume your previous activity Non-emergency contact: Primary Care Provider Call non-emergency contact if: you have any medication questions Follow-up/Referrals: Ilir Qureshi MD [Primary Care Provider] - 01/27/19 2:00 pm (Please, follow up with Dr. Qureshi on SundayJanuary 27 at 2:00 pm. *If you need to change this appointment, call the office at [phone].) Vick Benoit DO [Cost Accounting Analyst] - 01/21/19 8:30 am (Please, follow up with [facility], in the [facility], with Dr. Benoit on SundayJanuary 21 at 8:30 am. *If you need to change this appointment, call the office at [phone].) Diet: Carb Consistent or DM2 Addtl Attending Provider Instructions: WILL RECOMMEND hold hydralazine, and metolatzone. Restart torsemide, spironolactone, entresto, and KCL in AM 01/20. Your metoprolol succinate will be changed to evening dose instead of morning. Avoid NSAIDs. Importance of compliance discussed at length. Repeat basic metabolic panel Sunday or Sunday this week. Close cardiology follow-up with the heart failure clinic in 5 days. Call 911 and go to the Emergency Room if: * You have tightness or pain in your chest that does not go away with rest or Nitroglycerin * You are very short of breath even with rest Call your doctor if any of the following symptoms or problems start or get worse: * Shortness of breath or difficulty breathing * Wake up at night short of breath * Chest pain * Cough * Swelling of your hands, fee, or legs * More fatigued or tired with your normal activity * Palpitations - sudden fast heart beats WEIGHT * Weigh yourself every morning after using the bathroom. * Use the same scale. * Wear the same amount of clothing. * Write your weight down on your chart. * Call your doctor if you gain more than 2-3 pounds in 1-2 days. MEDICATIONS * Use this discharge instruction sheet for instructions. * Take your medications at the time your doctor ordered. * Do not skip a dose of your medicines. * If you miss a dose of medicine, take as soon as possible, but DO NOT DOUBLE A DOSE. * Read your medicine information when you get home. * Know all of the side effects of your medicine. * Call your doctor's office if you have any side effects. * Be sure all of your doctors know what medicine and herbs you take (including cold, flu, and herbal medicine). * Pain Medicine: If you do not get relief from your pain, please call your doctor for help. Take the following with you to your follow-up doctor appointments: * Weight Chart * Medication List * List of questions Do not drink excessive alcohol, beer or wine. Pending Studies at Discharge: No Stand-Alone Forms: [facility], Smoking Cessation Medications and DC Order Prescriptions: New metoprolol succinate 200 mg capsule,sprinkle,ER 24hr 200 mg PO QPM Qty: 30 RF: 0 potassium chloride 20 mEq tablet extended release 20 meq PO DAILY Qty: 14 RF: 0 Continued Humalog Mix 50-50 KwikPen 100 unit/mL (50-50) insulin pen 40 units SQ BID RF: 0 (DME) lancets [OneTouch Delica Plus Lancet] 30 gauge misc See Dose Instructions .ROUTE .MEDSUPPLY Qty: 400 RF: 3 (DME) OneTouch Verio strip See Dose Instructions .ROUTE .MEDSUPPLY Qty: 400 RF: 3 Trulicity 1.5 mg/0.5 mL pen injector 1.5 mg SQ WEEKLY Qty: 6 RF: 3 esomeprazole magnesium [Nexium] 20 mg capsule,delayed release(DR/EC) 20 mg PO BID RF: 0 torsemide 20 mg tablet 60 mg PO BID Qty: 60 RF: 1 aspirin [Aspirin Low Dose] 81 mg tablet,delayed release (DR/EC) 81 mg PO QAM RF: 0 spironolactone 25 mg Tablet 25 mg PO QAM Qty: 30 RF: 0 nitroglycerin [Nitrostat] 0.4 mg Tablet, Sublingual 0.4 mg sublingual UD PRN (Reason: chest pain) Qty: 100 RF: 0 budesonide 0.25 mg/2 mL Suspension For Nebulization 0.25 mg NEB Q12 Qty: 60 RF: 0 cholecalciferol (vitamin D3) [Vitamin D3] 1,000 unit capsule 2,000 units PO BID RF: 0 Entresto 97-103 mg tablet 1 tab PO BID Qty: 60 RF: 0 Discontinued metoprolol succinate 200 mg tablet extended release 24 hr 200 mg PO QAM RF: 0 hydralazine 100 mg tablet 100 mg PO BID Qty: 180 RF: 3 metolazone 5 mg tablet 5 mg PO BID PRN (Reason: Edema) Qty: 12 RF: 0 Discharge Orders: Discharge Order (Routine); Ordered 01/19/19 Ordered By: Shemar Sky Admission Data Admit Date/Time: 01/15/19 02:32 Attending Provider: Shemar Sky Admit Provider: Rolan Elizabeth Primary Care Provider: Ilir Qureshi Other Providers: Vick Benoit Keith D. Other Interventions: Discharge Summary Assessment (RN) Last Done: 01/19/19 12:46 DC Date/Time DO NOT enter until pt leaves facility: 01/19/19 13:11
== END 2019-01-19 13:11 | disposition home or self-care (01) | DRG 304 ==
LOC: ED 21:35 → 2S 01-15 02:32 → SUATTDRO 01-15 02:32 → 2S 01-15 03:06

== ENCOUNTER 2019-02-06 02:10 | Observation (INO) ==
[2019-02-06 03:03] LABS: Basophils # (auto) 0.02 K/uL (0-0.2); Basophils % (auto) 0.2 %; Eosinophils # (auto) 0.11 K/uL (0-0.5); Eosinophils % (auto) 1.2 %; Hematocrit (blood only) 39.4 % (42-52); Hemoglobin 13.4 g/dL (14.0-18.0); Immature Granulocytes # (auto) 0.02 K/uL (0.00-0.02); Immature Granulocytes % (auto) 0.2 %; Lymphocytes # (auto) 1.89 K/uL (1.2-3.4); Lymphocytes % (auto) 20.1 %; Mean Corpuscular Hemoglobin 29.1 pg (25-34); Mean Corpuscular Volume 85.5 fL (80-100); Mean Platelet Volume 10.1 fL (7.4-10.4); Monocytes # (auto) 0.58 K/uL (0.11-0.59); Monocytes % (auto) 6.2 %; Neutrophils # (auto) 6.78 K/uL (1.4-6.5); Neutrophils % (auto) 72.1 %; Platelet Count 142 K/uL (130-400); RDW Coefficient of Variation 15.3 % (11.5-14.5); RDW Standard Deviation 47.6 fL (36.4-46.3); Red Blood Count 4.61 M/uL (4.7-6.1)
[2019-02-06 03:22] LABS: INR 1.1 (0.9-1.1); Partial Thromboplastin Time 28.1 Seconds (21.0-31.0); Prothrombin Time 11.5 Seconds (9.0-12.0)
[2019-02-06 03:23] LABS: D Dimer 740 ug/L FEU (0-500)
[2019-02-06 03:24] LABS: Albumin Level 3.2 gm/dl (3.4-5.0); BUN Creatinine Ratio 13.5 (10-20); Calcium 8.3 mg/dl (8.5-10.1); Creatinine Clr Calc Pharmacy 132.4 ml/min; Est GFR (African American) 97.6; Est GFR (Non-African American) 84.2; Potassium 3.8 mmol/L (3.5-5.1)
[2019-02-06 03:29] LABS: Albumin Globulin Ratio 0.9 (0.9-2); Bilirubin,Total 1.1 mg/dl (0.2-1); Globulin 3.6 gm/dl (2.5-4.0); Total Protein 6.8 gm/dl (6.4-8.2); Troponin I 0.02 ng/ml (0-0.045)
[2019-02-06] MEDS ORDERED: HydrALAZINE HCL 20 MG/ML VIAL IV STA ×2 (03:47→07:21)
[2019-02-06] MEDS ORDERED: LORazepam 2 MG/4 ML VIAL ONE ×2 (04:25→04:42)
[2019-02-06] MEDS ORDERED: OPTIRAY 320 125ml IV PRN (05:09)
[2019-02-06] MEDS ORDERED: FUROSEMIDE 40 MG/4 ML VIAL IV STA ×2 (05:37→06:47)
--- NOTE | 2019-02-06 06:17 | History & Physical Report ---
Date of Service February 06, 2019 Assessment & Plan (1) Acute on chronic combined systolic and diastolic CHF (congestive heart failure): Acute on chronic combined systolic diastolic CHF/nonischemic cardiomyopathy/hypertension- The patient will be admitted to telemetry for serial cardiac enzymes, serial EKG's, and cardiac rhythm monitoring. Continue aspirin 81 mg daily, Entresto 1 p.o. every morning, metoprolol succinate 200 mg p.o. every afternoon, spironolactone 25 mg p.o. every morning, potassium chloride. Hold torsemide 60 mg p.o. twice daily. Patient was given furosemide 40 mg IV by the ED. Would give additional 40 mg IV now, and place on 80 mg IV twice daily. Follow serial BMP and magnesium levels. Most recent echocardiogram on 01/15/2019 shows EF 30 to 35%. 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 Dr. Benoit Present on Admission?: Yes (2) Nonischemic cardiomyopathy: As above. Present on Admission?: Yes (3) Diabetes mellitus, type II: Hold Trulicity and lispro 50-50 mix. Patient Accu-Cheks before meals and at bedtime with NovoLog coverage per scale Present on Admission?: Yes (4) Obstructive sleep apnea: Verify settings for CPAP Present on Admission?: Yes (5) Hypertension: As above Present on Admission?: Yes (6) Dyslipidemia: Verify medication, list no treatments are listed. Present on Admission?: Yes (7) GERD (gastroesophageal reflux disease): On Nexium 40 mg p.o. daily. Present on Admission?: Yes (8) COPD (chronic obstructive pulmonary disease): Continue budesonide respules 0.25 mg twice daily. Present on Admission?: Yes History of Present Illness Chief Complaint: The patient presents to the emergency department with 1 day of progressively worsening shortness of breath and dyspnea on exertion. Primary Care Provider: Ilir Qureshi MD The patient is a 43-year-old male with a past medical history including combined systolic and diastolic CHF, hypertensive urgency, diabetes mellitus, COPD, GERD, dyslipidemia, morbid obesity, obesity hypoventilation syndrome and hypertension. He presents to the emergency department with 1 day of progressive worsening shortness of breath and dyspnea on exertion. His HPI somewhat limited due to the severity of shortness of breath. Allergies Allergy/AdvReac Type Severity Reaction Status Date / Time ceftriaxone Allergy Severe SHORTNESS Verified 02/06/19 03:03 OF BREATH lidocaine Allergy Severe SHORTNESS Verified 02/06/19 03:03 OF BREATH, diaphoretic, hives procaine Allergy Severe SHORTNESS Verified 02/06/19 03:03 OF BREATH, diaphoretic, hives amoxicillin Allergy Intermediate HIVES/FACIAL Verified 02/06/19 03:03 SWELLING clavulanic acid Allergy Intermediate HIVES/FACIAL Verified 02/06/19 03:03 SWELLING lisinopril Allergy Intermediate HIVES Verified 02/06/19 03:03 albuterol Allergy Mild proair Verified 02/06/19 03:03 "trouble taking breaths" acetaminophen AdvReac Mild NAUSEA Verified 02/06/19 03:03 Home Medications Home Medications Medication Instructions Recorded Confirmed Type insulin lispro protamine-lispro 40 units SQ BID ml 08/28/18 02/06/19 History 100 unit/mL (50-50) subcutaneous pen esomeprazole magnesium 20 mg 20 mg PO BID cap 09/05/18 02/06/19 History capsule,delayed release aspirin 81 mg tablet,delayed 81 mg PO QAM 09/17/18 02/06/19 History release cholecalciferol (vitamin D3) 25 2,000 units PO BID cap 09/17/18 02/06/19 History mcg (1,000 unit) capsule torsemide 20 mg tablet 60 mg PO BID #60 tab 11/14/18 02/06/19 Rx nitroglycerin [Nitrostat] 0.4 mg SUBLINGUAL UD PRN #100 tab 12/11/18 02/06/19 Rx OneTouch Delica Plus Lancet 30 #400 ea NS 12/23/18 02/06/19 Rx gauge OneTouch Verio #400 ea NS 12/23/18 02/06/19 Rx Trulicity 1.5 mg/0.5 mL 1.5 mg SQ WEEKLY #6 ml NS 12/31/18 02/06/19 Rx subcutaneous pen injector metoprolol succinate 200 mg PO QPM #30 ea 01/19/19 02/06/19 Rx Entresto 1 tab PO QAM 01/26/19 02/06/19 History budesonide [Pulmicort] 0.25 mg NEB QAM 01/26/19 02/06/19 History potassium chloride [K-Tab] 20 meq PO QAM 01/26/19 02/06/19 History spironolactone [Aldactone] 25 mg PO QAM 01/26/19 02/06/19 History Past Med/Surg History Medical History Acquired claw toe of left foot (Acute) Acquired claw toe of right foot (Acute) Acute on chronic systolic (congestive) heart failure (Chronic) Back pain (Resolved) Bilateral knee pain (Acute) Carpal tunnel syndrome (Acute) Cluster headache (Acute) Cognitive impairment 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 Difficult to manage. Integrated into heart failure clinic. Frequent admissions for heart failure exacerbations. Echo (05/31) EF=25-30% with mod to severe global hypokinesis, basal kelsi-septal akinetic wall, LVH, RVSP elevated at 30-40mmHg, and mod dilated ascending aorta. Managed medically with ASA + BB + ARB/Neprilysin inhibitor (Entresto) + high dose furosemide (160mg BID) + metolazone (3x weekly). Considering ICD given EF. COPD (chronic obstructive pulmonary disease) (Chronic) Depression Depression with anxiety (Acute) Diabetes mellitus with diabetic polyneuropathy (Acute) Diabetes mellitus, type II (Chronic) DM II (diabetes mellitus, type II), controlled Dyslipidemia (Acute) Fatty liver GERD (gastroesophageal reflux disease) GERD (gastroesophageal reflux disease) Hemoptysis HTN (hypertension) Hypertension (Chronic) Learning disability (Resolved) Lung nodule (Acute) Medical non-compliance Mixed hearing loss of left ear (Acute) Morbid obesity (Chronic) BMI> 50 Morbid obesity with BMI of 50.0-59.9, adult Nonischemic cardiomyopathy EF 30-35% Nonischemic cardiomyopathy Obstructive sleep apnea (Chronic) Polysomnography (07/28) with severe mixed osbtructive and central apnea treated with Bipap 27/11 MARIELENA (obstructive sleep apnea) Does not comply with CPAP Peripheral neuropathy (Chronic) 2/2 DM type II. Located on the feet bilaterally. Not requiring medication. Followed by podiatry Right-sided sensorineural hearing loss (Acute) Sinus bradycardia Sinus tachycardia (Acute) TMJ (dislocation of temporomandibular joint) (Acute) Umbilical hernia (Acute) Vitamin D insufficiency Previously deficient, taking Vit D supplementation Surgical History History of carpal tunnel surgery History of cholecystectomy S/P tonsillectomy Family History Father , age 57 of an [place]. Heart disease Myocardial infarction Mother , age 67 of a ruptured neck vessel Sudden Other Depression Lung disease No pertinent family history Social History Preferred Language: [place]i Communication Ability: Effective Visual Impairment: No Limitations Hearing Ability: Normal Senior Advisor Required: No Beliefs That Will Affect Care: None marital status: Current Living Situation: Spouse current occupational status: unemployed Feels Safe at Home: Yes Smoking Status: Former smoker Tobacco Type: cigarettes ; Age Started Using Tobacco: 14 ; Age Quit Using Tobacco: 18 ; Second Hand Exposure: No ; Hx Alcohol Use: No Hx Substance Use: No Childhood Exposure to Second-Hand Smoke: Yes Dental Care, Regularly: Yes Physical Activity Frequency: Does not Exercise Review of Systems Review of Systems: The patient denies chest pain, palpitations, cough, sore throat, fevers, chills, sweats, nausea, vomiting, diarrhea , constipation, abdominal pain, pelvic pain, blood in urine or stool, dysuria, urinary frequency or urgency, lightheadedness, dizziness, headache, memory loss, loss of consciousness, rash, abnormal bruising or bleeding, imbalance, focal or generalized weakness, numbness or tingling in arms or legs, generalized arthralgias or myalgias, back or neck pain, or night sweats. The review of systems is otherwise negative other than for that already noted above, and at least 10 systems have been reviewed. Physical Exam Physical Exam: The patient is awake, alert and oriented 3, morbidly obese normocephalic and atraumatic, sitting upright on edge of bed, in moderate respiratory distress. HEENT--PERRL, EOMI, mucous membranes and oropharynx dry. Neck--supple. No JVD. No bruits. Thyroid normal, trachea midline, no adenopathy. Heart--normal S1 and S2. No murmurs, rubs or gallops. Lungs--crackles at the bases to detention up bilaterally, right greater than left. Moderate respiratory distress. Abdomen--normal bowel sounds and soft. Nontender. Morbidly obese Extremities--no cyanosis or clubbing. 3+ bilateral pretibial pitting edema. Dermatologic--no rashes Neurologic--cranial nerves II through XII grossly intact. Rheumatologic--normal range of motion. Psychiatric--normal affect. Results & Data Vital Signs (Past 12 Hours) Vital Signs Temp Pulse Pulse Resp BP BP Pulse Ox 02/06/19 06:01 114 H 39 H 149/101 H 90 02/06/19 06:00 116 H 34 H 91 02/06/19 05:56 118 H 29 H 175/119 H 93 02/06/19 05:51 121 H 21 177/130 H 91 02/06/19 05:50 125 H 25 H 94 02/06/19 05:40 121 H 93 02/06/19 05:30 117 H 15 93 02/06/19 05:21 123 H 32 H 93 02/06/19 05:20 123 H 27 H 218/158 H 92 02/06/19 05:19 121 H 18 212/125 H 94 02/06/19 05:16 119 H 25 H 226/194 H 89 L 02/06/19 05:15 117 H 30 H 182/146 H 92 02/06/19 05:11 122 H 25 H 94 02/06/19 05:10 128 H 27 H 182/146 H 97 02/06/19 05:08 118 H 29 H 02/06/19 03:56 92 H 39 H 229/120 H 97 02/06/19 03:54 72 36 H 200/120 H 93 02/06/19 03:53 89 22 200/120 H 92 02/06/19 03:50 87 28 H 94 02/06/19 03:40 104 H 26 H 91 02/06/19 03:31 69 29 H 92 02/06/19 03:30 99 H 26 H 218/133 H 92 02/06/19 03:20 94 H 33 H 91 02/06/19 03:10 110 H 34 H 92 02/06/19 03:00 93 H 24 198/149 H 96 02/06/19 02:50 105 H 31 H 95 02/06/19 02:40 97 02/06/19 02:31 184/121 H 91 02/06/19 02:30 93 02/06/19 02:20 91 02/06/19 02:18 94 02/06/19 02:17 92 02/06/19 02:13 98.4 F 114 H 28 H 184/141 H 87 L Laboratory Results Laboratory Results WBC 9.40 K/uL (4.8-10.8) 02/06/19 02:55 RBC 4.61 M/uL (4.7-6.1) L 02/06/19 02:55 Hgb 13.4 g/dL (14.0-18.0) L 02/06/19 02:55 Hct 39.4 % (42-52) L 02/06/19 02:55 MCV 85.5 fL (80-100) 02/06/19 02:55 MCH 29.1 pg (25-34) 02/06/19 02:55 MCHC 34.0 g/dL (32-36) 02/06/19 02:55 RDW Std Deviation 47.6 fL (36.4-46.3) H 02/06/19 02:55 RDW Coeff of Zoltan 15.3 % (11.5-14.5) H 02/06/19 02:55 Plt Count 142 K/uL (130-400) 02/06/19 02:55 MPV 10.1 fL (7.4-10.4) 02/06/19 02:55 Immature Gran % (Auto) 0.2 % 02/06/19 02:55 Neut % (Auto) 72.1 % 02/06/19 02:55 Lymph % (Auto) 20.1 % 02/06/19 02:55 [place] % (Auto) 6.2 % 02/06/19 02:55 Eos % (Auto) 1.2 % 02/06/19 02:55 Baso % (Auto) 0.2 % 02/06/19 02:55 Immature Gran # (Auto) 0.02 K/uL (0.00-0.02) 02/06/19 02:55 Neut # (Auto) 6.78 K/uL (1.4-6.5) H 02/06/19 02:55 Lymph # (Auto) 1.89 K/uL (1.2-3.4) 02/06/19 02:55 [place] # (Auto) 0.58 K/uL (0.11-0.59) 02/06/19 02:55 Eos # (Auto) 0.11 K/uL (0-0.5) 02/06/19 02:55 Baso # (Auto) 0.02 K/uL (0-0.2) 02/06/19 02:55 PT 11.5 Seconds (9.0-12.0) 02/06/19 02:55 INR 1.1 (0.9-1.1) 02/06/19 02:55 APTT 28.1 Seconds (21.0-31.0) 02/06/19 02:55 PTT Ratio 1.0 02/06/19 02:55 D-Dimer 740 ug/L FEU (0-500) H* 02/06/19 02:55 Sodium 139 mmol/L (136-145) 02/06/19 02:55 Potassium 3.8 mmol/L (3.5-5.1) 02/06/19 02:55 Chloride 109 mmol/L (98-107) H 02/06/19 02:55 Carbon Dioxide 26 mmol/L (21-32) 02/06/19 02:55 Anion Gap 4.0 (3-11) 02/06/19 02:55 BUN 15 mg/dl (7-18) 02/06/19 02:55 Creatinine 1.08 mg/dl (0.6-1.4) 02/06/19 02:55 Est Cr Clr Drug Dosing 132.4 ml/min 02/06/19 02:55 Est GFR ( Amer) 97.6 02/06/19 02:55 Est GFR (Non-Af Amer) 84.2 02/06/19 02:55 BUN/Creatinine Ratio 13.5 (10-20) 02/06/19 02:55 Glucose 138 mg/dl (70-99) H 02/06/19 02:55 Calcium 8.3 mg/dl (8.5-10.1) L 02/06/19 02:55 Total Bilirubin 1.1 mg/dl (0.2-1) H 02/06/19 02:55 AST 12 U/L (15-37) L 02/06/19 02:55 ALT 21 U/L (12-78) 02/06/19 02:55 Alkaline Phosphatase 85 U/L (45-117) 02/06/19 02:55 Troponin I 0.020 ng/ml (0-0.045) 02/06/19 02:55 NT-Pro-B Natriuret Pep 4467 pg/ml (0-450) H 02/06/19 02:55 Total Protein 6.8 gm/dl (6.4-8.2) 02/06/19 02:55 Albumin 3.2 gm/dl (3.4-5.0) L 02/06/19 02:55 Globulin 3.6 gm/dl (2.5-4.0) 02/06/19 02:55 Albumin/Globulin Ratio 0.9 (0.9-2) 02/06/19 02:55 Code Status & VTE Plan Code Status Full code VTE Prophylaxis Plan VTE Prophylaxis will be ordered: Yes PG Care Time/CCT Total # of Minutes Spent Total Time Spent with Patient: Total time spent is greater than 50% in coordination of care (as documented) at patient's floor/unit and/or counseling patient: (1) Diabetes mellitus, type II Diabetes mellitus vascular specialists insulin use: with longterm use Diabetes mellitus complication status: with other specified complication Qualified Code(s): E11.69 - Type 2 diabetes mellitus with other specified complication; 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
--- NOTE | 2019-02-06 06:54 | CT Scan Report ---
CT ANGIOGRAM OF THE CHEST CLINICAL HISTORY: Atypical chest pain, hemoptysis. COMPARISON STUDY: 01/14/2019 TECHNIQUE: Following the IV administration of 118 mL of Optiray-320, CT angiogram of the thorax was p erformed from the thoracic inlet to the lung bases utilizing the pulmonary embolus protocol. Images a re reviewed in the axial, sagittal, and coronal planes. IV contrast was administered without complica tion. MIP imaging was performed. A dose lowering technique was utilized adhering to the principles o f ALARA. CT DOSE: 2379.47 mGy.cm FINDINGS: Mediastinal lymph nodes are the upper limits of normal in size. There is no pathologic axillary or hi lar lymphadenopathy There is mild dilatation of the ascending thoracic aorta which measures 45 mm. The heart is enlarged. There is no pericardial effusion. There is suboptimal pulmonary opacification. Evaluation for emboli is also limited due to respiratory motion artifact. No central emboli are visualized. If there is a strong clinical concern over the pr esence of acute pulmonary embolism, then correlation with serial leg ultrasonography should be consid ered. There are small bilateral pleural effusions. There is mild septal edema. There are subtle multifocal airspace opacities, pulmonary edema versus a pneumonitis. Clinical and radiographic follow-up is recommended. IMPRESSION: 1. Significantly limited study from a technical standpoint. No central pulmonary emboli identified. I f there is a strong clinical concern presence of pulmonary embolism, then correlation with serial leg ultrasonography should be considered. 2. Radiographic evidence of fluid overload/congestive failure with pleural effusions and mild septal edema 3. Cardiomegaly and mild aneurysmal dilatation of the ascending thoracic aorta 4. Subtle multifocal airspace opacities, pulmonary edema versus a pneumonitis. Clinical and radiograp hic follow-up is recommended. ACT 112: Negative or not required by law. Electronically signed by: Garrett Muniz M.D. 02/06/2019 6:53 AM
--- NOTE | 2019-02-06 06:59 | Emergency Department Note ---
Entered by Renuka Steinberg acting as a scribe for History of Present Illness General Chief complaint: Respiratory Problems Stated complaint: RESP Time Seen by Provider: 02/06/19 02:21 Source: patient History of Present Illness Provider complaint: shortness of breath Onset (ago): week(s) 1 Location: chest Radiation: non-radiation Pain Consistency: + intermittent Maximum Pain Intensity: 10 Exacerbated By: + movement Associated symptoms: + denies other symptoms, + cough, + headaches and + shortness of breath The patient is a 43 y/o male who presents to the emergency department for evaluation of intermittent shortness of breath and cough for the past week. The patient states that he was in the ED 11 days ago because he was short of breath but since then the shortness of breath has become worse to the point he is unable to get to his bathroom or kitchen. He notes that he has also been light headed and short of breath. He also describes increased hemoptysis. The patient had O2 Sats of 87% on room air and he reports he does not wear oxygen at home. He notes that he began coughing up blood on Sunday since his prior ED visi t. The patient denies any other symptoms. Home Medications Home Medications Medication Instructions Recorded Confirmed Type insulin lispro protamine-lispro 40 units SQ BID ml 08/28/18 02/06/19 History 100 unit/mL (50-50) subcutaneous pen esomeprazole magnesium 20 mg 20 mg PO BID cap 09/05/18 02/06/19 History capsule,delayed release aspirin 81 mg tablet,delayed 81 mg PO QAM 09/17/18 02/06/19 History release cholecalciferol (vitamin D3) 25 2,000 units PO BID cap 09/17/18 02/06/19 History mcg (1,000 unit) capsule torsemide 20 mg tablet 60 mg PO BID #60 tab 11/14/18 02/06/19 Rx nitroglycerin [Nitrostat] 0.4 mg SUBLINGUAL UD PRN #100 tab 12/11/18 02/06/19 Rx OneTouch Delica Plus Lancet 30 #400 ea NS 12/23/18 02/06/19 Rx gauge OneTouch Verio #400 ea NS 12/23/18 02/06/19 Rx Trulicity 1.5 mg/0.5 mL 1.5 mg SQ WEEKLY #6 ml NS 12/31/18 02/06/19 Rx subcutaneous pen injector metoprolol succinate 200 mg PO QPM #30 ea 01/19/19 02/06/19 Rx Entresto 1 tab PO QAM 01/26/19 02/06/19 History budesonide [Pulmicort] 0.25 mg NEB QAM 01/26/19 02/06/19 History potassium chloride [K-Tab] 20 meq PO QAM 01/26/19 02/06/19 History spironolactone [Aldactone] 25 mg PO QAM 01/26/19 02/06/19 History Allergies Allergy/AdvReac Type Severity Reaction Status Date / Time ceftriaxone Allergy Severe SHORTNESS Verified 02/06/19 03:03 OF BREATH lidocaine Allergy Severe SHORTNESS Verified 02/06/19 03:03 OF BREATH, diaphoretic, hives procaine Allergy Severe SHORTNESS Verified 02/06/19 03:03 OF BREATH, diaphoretic, hives amoxicillin Allergy Intermediate HIVES/FACIAL Verified 02/06/19 03:03 SWELLING clavulanic acid Allergy Intermediate HIVES/FACIAL Verified 02/06/19 03:03 SWELLING lisinopril Allergy Intermediate HIVES Verified 02/06/19 03:03 albuterol Allergy Mild proair Verified 02/06/19 03:03 "trouble taking breaths" acetaminophen AdvReac Mild NAUSEA Verified 02/06/19 03:03 Past Med/Surg History Medical History Acquired claw toe of left foot (Acute) Acquired claw toe of right foot (Acute) Acute on chronic systolic (congestive) heart failure (Chronic) Back pain (Resolved) Bilateral knee pain (Acute) Carpal tunnel syndrome (Acute) Cluster headache (Acute) Cognitive impairment 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 Difficult to manage. Integrated into heart failure clinic. Frequent admissions for heart failure exacerbations. Echo (05/31) EF=25-30% with mod to severe global hypokinesis, basal kelsi-septal akinetic wall, LVH, RVSP elevated at 30-40mmHg, and mod dilated ascending aorta. Managed medically with ASA + BB + ARB/Neprilysin inhibitor (Entresto) + high dose furosemide (160mg BID) + metolazone (3x weekly). Considering ICD given EF. COPD (chronic obstructive pulmonary disease) (Chronic) Depression Depression with anxiety (Acute) Diabetes mellitus with diabetic polyneuropathy (Acute) Diabetes mellitus, type II (Chronic) DM II (diabetes mellitus, type II), controlled Dyslipidemia (Acute) Fatty liver GERD (gastroesophageal reflux disease) GERD (gastroesophageal reflux disease) Hemoptysis HTN (hypertension) Hypertension (Chronic) Learning disability (Resolved) Lung nodule (Acute) Medical non-compliance Mixed hearing loss of left ear (Acute) Morbid obesity (Chronic) BMI> 50 Morbid obesity with BMI of 50.0-59.9, adult Nonischemic cardiomyopathy EF 30-35% Nonischemic cardiomyopathy Obstructive sleep apnea (Chronic) Polysomnography (07/28) with severe mixed osbtructive and central apnea treated with Bipap 27/11 MARIELENA (obstructive sleep apnea) Does not comply with CPAP Peripheral neuropathy (Chronic) 2/2 DM type II. Located on the feet bilaterally. Not requiring medication. Followed by podiatry Right-sided sensorineural hearing loss (Acute) Sinus bradycardia Sinus tachycardia (Acute) TMJ (dislocation of temporomandibular joint) (Acute) Umbilical hernia (Acute) Vitamin D insufficiency Previously deficient, taking Vit D supplementation Surgical History History of carpal tunnel surgery History of cholecystectomy S/P tonsillectomy Family History Father , age 57 of an PA. 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 and A total of 10 systems reviewed and were otherwise negative Physical Exam Vital Signs Vital Signs - 24 hr 02/06/19 02:13 02/06/19 02:17 02/06/19 02:18 Temperature 36.9 C Temperature Source Oral Pulse Rate 114 H Pulse Rate [Apical] Pulse Rate from SpO2 Sensor 107 H Respiratory Rate 28 H Respiratory Effort / Characteristics Spontaneous Labored Respiratory Depth Deep Blood Pressure 184/141 H Blood Pressure [Right Arm] Blood Pressure Mean 155 Blood Pressure Mean [Right Arm] Pulse Oximetry 87 L 92 94 Oxygen Delivery Method Room Air Nasal Cannula Oxygen Flow Rate 2 Sepsis Recent Fever Within 48 Hours No Sepsis Action Taken by Nursing No Action Required Oxygen Flow Rate - Titration 2 Pulse Oximetry Post Tiitration 94 02/06/19 02:20 02/06/19 02:30 02/06/19 02:31 Temperature Temperature Source Pulse Rate Pulse Rate [Apical] Pulse Rate from SpO2 Sensor 105 H 104 H 99 H Respiratory Rate Respiratory Effort / Characteristics Respiratory Depth Blood Pressure 184/121 H Blood Pressure [Right Arm] Blood Pressure Mean 147 Blood Pressure Mean [Right Arm] Pulse Oximetry 91 93 91 Oxygen Delivery Method Oxygen Flow Rate Sepsis Recent Fever Within 48 Hours Sepsis Action Taken by Nursing Oxygen Flow Rate - Titration Pulse Oximetry Post Tiitration 02/06/19 02:40 02/06/19 02:50 02/06/19 03:00 Temperature Temperature Source Pulse Rate 105 H 93 H Pulse Rate [Apical] Pulse Rate from SpO2 Sensor 95 H 105 H 95 H Respiratory Rate 31 H 24 Respiratory Effort / Characteristics Respiratory Depth Blood Pressure 198/149 H Blood Pressure [Right Arm] Blood Pressure Mean 167 Blood Pressure Mean [Right Arm] Pulse Oximetry 97 95 96 Oxygen Delivery Method Oxygen Flow Rate Sepsis Recent Fever Within 48 Hours Sepsis Action Taken by Nursing Oxygen Flow Rate - Titration Pulse Oximetry Post Tiitration 02/06/19 03:10 02/06/19 03:20 02/06/19 03:30 Temperature Temperature Source Pulse Rate 110 H 94 H 99 H Pulse Rate [Apical] Pulse Rate from SpO2 Sensor 108 H 95 H 99 H Respiratory Rate 34 H 33 H 26 H Respiratory Effort / Characteristics Respiratory Depth Blood Pressure 218/133 H Blood Pressure [Right Arm] Blood Pressure Mean 141 Blood Pressure Mean [Right Arm] Pulse Oximetry 92 91 92 Oxygen Delivery Method Oxygen Flow Rate Sepsis Recent Fever Within 48 Hours Sepsis Action Taken by Nursing Oxygen Flow Rate - Titration Pulse Oximetry Post Tiitration 02/06/19 03:31 02/06/19 03:40 02/06/19 03:50 Temperature Temperature Source Pulse Rate 69 104 H 87 Pulse Rate [Apical] Pulse Rate from SpO2 Sensor 69 100 H 87 Respiratory Rate 29 H 26 H 28 H Respiratory Effort / Characteristics Respiratory Depth Blood Pressure Blood Pressure [Right Arm] Blood Pressure Mean Blood Pressure Mean [Right Arm] Pulse Oximetry 92 91 94 Oxygen Delivery Method Oxygen Flow Rate Sepsis Recent Fever Within 48 Hours Sepsis Action Taken by Nursing Oxygen Flow Rate - Titration Pulse Oximetry Post Tiitration 02/06/19 03:53 02/06/19 03:54 02/06/19 03:56 Temperature Temperature Source Pulse Rate 72 92 H Pulse Rate [Apical] 89 Pulse Rate from SpO2 Sensor 68 92 H Respiratory Rate 22 36 H 39 H Respiratory Effort / Characteristics Non-Labored Spontaneous Respiratory Depth Normal Blood Pressure 200/120 H 229/120 H Blood Pressure [Right Arm] 200/120 H Blood Pressure Mean 129 144 Blood Pressure Mean [Right Arm] 146 Pulse Oximetry 92 93 97 Oxygen Delivery Method Nasal Cannula Oxygen Flow Rate 2 Sepsis Recent Fever Within 48 Hours Sepsis Action Taken by Nursing Oxygen Flow Rate - Titration Pulse Oximetry Post Tiitration 02/06/19 05:08 02/06/19 05:10 02/06/19 05:11 Temperature Temperature Source Pulse Rate 118 H 128 H 122 H Pulse Rate [Apical] Pulse Rate from SpO2 Sensor 123 H 125 H Respiratory Rate 29 H 27 H 25 H Respiratory Effort / Characteristics Respiratory Depth Blood Pressure 182/146 H Blood Pressure [Right Arm] Blood Pressure Mean 152 Blood Pressure Mean [Right Arm] Pulse Oximetry 97 94 Oxygen Delivery Method Oxygen Flow Rate Sepsis Recent Fever Within 48 Hours Sepsis Action Taken by Nursing Oxygen Flow Rate - Titration Pulse Oximetry Post Tiitration 02/06/19 05:15 02/06/19 05:16 02/06/19 05:19 Temperature Temperature Source Pulse Rate 119 H 121 H Pulse Rate [Apical] 117 H Pulse Rate from SpO2 Sensor 118 H 120 H Respiratory Rate 30 H 25 H 18 Respiratory Effort / Characteristics Spontaneous Labored Respiratory Depth Deep Blood Pressure 226/194 H 212/125 H Blood Pressure [Right Arm] 182/146 H Blood Pressure Mean 200 155 Blood Pressure Mean [Right Arm] 158 Pulse Oximetry 92 89 L 94 Oxygen Delivery Method Nasal Cannula Oxygen Flow Rate 2 Sepsis Recent Fever Within 48 Hours Sepsis Action Taken by Nursing Oxygen Flow Rate - Titration Pulse Oximetry Post Tiitration 02/06/19 05:20 02/06/19 05:21 02/06/19 05:30 Temperature Temperature Source Pulse Rate 123 H 123 H 117 H Pulse Rate [Apical] Pulse Rate from SpO2 Sensor 124 H 124 H 118 H Respiratory Rate 27 H 32 H 15 Respiratory Effort / Characteristics Respiratory Depth Blood Pressure 218/158 H Blood Pressure [Right Arm] Blood Pressure Mean 169 Blood Pressure Mean [Right Arm] Pulse Oximetry 92 93 93 Oxygen Delivery Method Oxygen Flow Rate Sepsis Recent Fever Within 48 Hours Sepsis Action Taken by Nursing Oxygen Flow Rate - Titration Pulse Oximetry Post Tiitration 02/06/19 05:40 02/06/19 05:50 02/06/19 05:51 Temperature Temperature Source Pulse Rate 121 H 125 H 121 H Pulse Rate [Apical] Pulse Rate from SpO2 Sensor 118 H 126 H 121 H Respiratory Rate 25 H 21 Respiratory Effort / Characteristics Respiratory Depth Blood Pressure 177/130 H Blood Pressure [Right Arm] Blood Pressure Mean 145 Blood Pressure Mean [Right Arm] Pulse Oximetry 93 94 91 Oxygen Delivery Method Oxygen Flow Rate Sepsis Recent Fever Within 48 Hours Sepsis Action Taken by Nursing Oxygen Flow Rate - Titration Pulse Oximetry Post Tiitration 02/06/19 05:56 02/06/19 06:00 02/06/19 06:01 Temperature Temperature Source Pulse Rate 118 H 116 H 114 H Pulse Rate [Apical] Pulse Rate from SpO2 Sensor 119 H 109 H 113 H Respiratory Rate 29 H 34 H 39 H Respiratory Effort / Characteristics Respiratory Depth Blood Pressure 175/119 H 149/101 H Blood Pressure [Right Arm] Blood Pressure Mean 140 107 Blood Pressure Mean [Right Arm] Pulse Oximetry 93 91 90 Oxygen Delivery Method Oxygen Flow Rate Sepsis Recent Fever Within 48 Hours Sepsis Action Taken by Nursing Oxygen Flow Rate - Titration Pulse Oximetry Post Tiitration General morbidly obese who appears short of breath. The patient has occasional coughing with hemoptysis. HEENT: Head - normocephalic and atraumatic. Pupils are equal, round, and reactive to light. Extraocular eye muscles are intact, and sclera are anicteric. Nose - moist nasal mucosa without discharge. Mouth - moist buccal mucosa. Oropharynx is nonerythematous and there is no tonsillar exudate or edema noted. Neck: Supple; no JVD could be appreciated. There was no cervical lymphadenopathy or nuchal rigidity. Heart: tachycardic rate and regular rhythm. There is a normal S1 and S2 with no murmurs, clicks, or gallops appreciated. Lungs: Diminished breath sounds across all lung obrien with occasional end expiratory wheeze. Abdomen: Soft, completely nontender, nondistended, with good bowel sounds. There are no palpable pulsatile masses or hepatosplenomegaly. There is no guarding, rigidity, or rebound noted. Extremities: No evidence of cyanosis, or clubbing. There are easily palpable peripheral pulses. Trace pedal edema. Skin: warm and dry with good turgor and no rashes. Course Course 0232: Past medical records reviewed. The patient was evaluated in room B12. A complete history and physical exam was performed. I ordered continuous cardiac monitoring. The patient was in a sinus tachycardia at a rate of 110. Laboratory studies were drawn as above. A portable chest x-ray was performed. 0347: I checked on the patient, he was asleep but woken up and told he will go for a CT scan. The patients blood pressure is very high. I ordered hydralazine HCL 10 mg IV. 0420: The patient became anxious at CT and would not lay down so I ordered 1 mg Ativan IV, but he was still unable to lay flat. He became pale, diaphoretic and was taken to the bathroom where he had a BM. He was still quite anxious and unable to lay flat. 0443: The patient was still unable to lay flat so more Ativan was given. Finally, the CT was performed. There was no evidence of a pulmonary embolus. 0537: Patient has evidence of pleural effusions and pulmonary edema on CT scan. I ordered Lasix 40 mg IV. 0538: I checked on the patient he was asleep and I woke him. Vitals were stable. I updated him on the results and admission plan. His blood pressure had come down after receiving the IV hydralazine. 0600: [place]aque[place] [facility] [place]. He will evaluate for fur ther management. Administered Medications Ioversol (Optiray 320 125ml) 125 ml IV ONCE PRN PRN Reason: Interaction Checking Stop: 02/10/19 05:08 Last Admin: 02/06/19 05:09 Dose: 118 ml Documented by: [id number] Discontinued Medications Furosemide (Lasix) 40 mg IV NOW STA Stop: 02/06/19 05:38 Last Admin: 02/06/19 06:36 Dose: 40 mg Documented by: [id number] Hydralazine HCl (Hydralazine Hcl) 10 mg IV NOW STA Stop: 02/06/19 03:48 Last Admin: 02/06/19 03:53 Dose: 10 mg Documented by: [id number] Lorazepam (Ativan) Confirm Administered Dose 2 mg .ROUTE .STK-MED ONE Stop: 02/06/19 04:26 Last Increment: 02/06/19 04:30 Dose: 1 mg Documented by: [id number] Lorazepam (Ativan) Confirm Administered Dose 2 mg .ROUTE .STK-MED ONE Stop: 02/06/19 04:43 Last Increment: 02/06/19 04:45 Dose: 1 mg Documented by: [id number] Critical Care Time Critical Care Time: Yes Total Critical Care Time: 50 I have personally spent 50 minutes of critical care time in the direct management of this patient. This includes bedside care, interpretation of diagnostic studies, and testing, discussion with consultants, patient, and family members, and other required patient management activities. This 50 minutes is in excess of all separately billable procedures. Medical Decision Making Differential Diagnosis Differential diagnosis: CHF, COPD exacerbation, pneumonia, PE. Medical Records Attestation: I reviewed the patient's medical records. Home Medications Current Medication List: was personally reviewed by me Laboratory Data Attestation: I reviewed the patient's lab results. Result diagrams: 02/06/19 02:55 02/06/19 02:55 Lab Results 02/06/19 02/06/19 02/06/19 Range/Units 02:55 02:55 02:55 WBC 9.40 (4.8-10.8) K/uL RBC 4.61 L (4.7-6.1) M/uL Hgb 13.4 L (14.0-18.0) g/dL Hct 39.4 L (42-52) % MCV 85.5 (80-100) fL MCH 29.1 (25-34) pg MCHC 34.0 (32-36) g/dL RDW Std Deviation 47.6 H (36.4-46.3) fL RDW Coeff of Zoltan 15.3 H (11.5-14.5) % Plt Count 142 (130-400) K/uL MPV 10.1 (7.4-10.4) fL Immature Gran % (Auto) 0.2 % Neut % (Auto) 72.1 % Lymph % (Auto) 20.1 % [place] % (Auto) 6.2 % Eos % (Auto) 1.2 % Baso % (Auto) 0.2 % Immature Gran # (Auto) 0.02 (0.00-0.02) K/uL Neut # (Auto) 6.78 H (1.4-6.5) K/uL Lymph # (Auto) 1.89 (1.2-3.4) K/uL [place] # (Auto) 0.58 (0.11-0.59) K/uL Eos # (Auto) 0.11 (0-0.5) K/uL Baso # (Auto) 0.02 (0-0.2) K/uL PT 11.5 (9.0-12.0) Seconds INR 1.1 (0.9-1.1) APTT 28.1 (21.0-31.0) Seconds PTT Ratio 1.0 D-Dimer 740 H* (0-500) ug/L FEU Sodium 139 (136-145) mmol/L Potassium 3.8 (3.5-5.1) mmol/L Chloride 109 H (98-107) mmol/L Carbon Dioxide 26 (21-32) mmol/L Anion Gap 4.0 (3-11) BUN 15 (7-18) mg/dl Creatinine 1.08 (0.6-1.4) mg/dl Est Cr Clr Drug Dosing 132.4 ml/min Est GFR ( Amer) 97.6 Est GFR (Non-Af Amer) 84.2 BUN/Creatinine Ratio 13.5 (10-20) Glucose 138 H (70-99) mg/dl Calcium 8.3 L (8.5-10.1) mg/dl Total Bilirubin 1.1 H (0.2-1) mg/dl AST 12 L (15-37) U/L ALT 21 (12-78) U/L Alkaline Phosphatase 85 (45-117) U/L Troponin I 0.020 (0-0.045) ng/ml NT-Pro-B Natriuret Pep 4467 H (0-450) pg/ml Total Protein 6.8 (6.4-8.2) gm/dl Albumin 3.2 L (3.4-5.0) gm/dl Globulin 3.6 (2.5-4.0) gm/dl Albumin/Globulin Ratio 0.9 (0.9-2) Imaging Data Attestation: I personally reviewed and interpreted this imaging study as follows: My Impression: Chest x-ray showed cardiomegaly, moderate pulmonary edema which is increased compared to 01/26/19. Radiologist's Impression: CTA CHEST: No pulmonary embolism or acute aortic syndrome. Cardiomegaly. Interstitial edema and trace bilateral pleural effusions. Radiologist: Bhupendra Gomez MD ECG Data Attestation: I personally reviewed and interpreted this ECG as follows: Indication: + SOB/dyspnea Rate (beats per minute): 111 Rhythm: + sinus tachycardia ECG ST segments: no ST depression and no ST elevation ECG Findings: + PVCs Comparison ECG Date: from (01/26/19) Change: no significant change Blood Pressure Blood Pressure Findings: Elevated blood pressure Blood Pressure Disposition: further management by hospitalist MDM Narrative The patient is a 43 y/o male who presents to the emergency department for evaluation of intermittent shortness of breath and cough for the past week. The patient has a long history of respiratory issues including congestive heart failure and COPD. Patient states that his respiratory status has worsened over the past 10 days to the point now that he cannot catch his breath and has significant hemoptysis. Patient was hypoxic here in the emergency department with O2 saturations as low as 87%. He required supplemental oxygen. CT scan of the chest shows no evidence of PE but there is significant fluid overload. The patient was given IV Lasix. He remained hemodynamically stable while here in the emergency department. The patient will be evaluated by the [facility] Hospitalist for further care. Impression & Plan Pulmonary edema, Hypoxia, Hemoptysis, Hypertension Discharge Plan Visit Data Chief Complaint: Respiratory Problems Stated Complaint: RESP ED Provider: Cydney Barton Discharge Problem: Pulmonary edema, Hypoxia, Hemoptysis, Hypertension Patient Disposition: Being Evaluated by Hospitalist Forms Stand Alone Forms: My [facility] Prescriptions Prescriptions: No Action Humalog Mix 50-50 KwikPen 100 unit/mL (50-50) insulin pen 40 units SQ BID RF: 0 (DME) lancets [OneTouch Delica Plus Lancet] 30 gauge misc See Dose Instructions .ROUTE .MEDSUPPLY Qty: 400 RF: 3 (DME) OneTouch Verio strip See Dose Instructions .ROUTE .MEDSUPPLY Qty: 400 RF: 3 Trulicity 1.5 mg/0.5 mL pen injector 1.5 mg SQ WEEKLY Qty: 6 RF: 3 esomeprazole magnesium [Nexium] 20 mg capsule,delayed release(DR/EC) 20 mg PO BID RF: 0 torsemide 20 mg tablet 60 mg PO BID Qty: 60 RF: 1 aspirin [Aspirin Low Dose] 81 mg tablet,delayed release (DR/EC) 81 mg PO QAM RF: 0 nitroglycerin [Nitrostat] 0.4 mg Tablet, Sublingual 0.4 mg sublingual UD PRN (Reason: chest pain) Qty: 100 RF: 0 cholecalciferol (vitamin D3) [Vitamin D3] 1,000 unit capsule 2,000 units PO BID RF: 0 metoprolol succinate 200 mg capsule,sprinkle,ER 24hr 200 mg PO QPM Qty: 30 RF: 0 spironolactone [Aldactone] 25 mg tablet 25 mg PO QAM RF: 0 budesonide [Pulmicort] 0.25 mg/2 mL suspension for nebulization 0.25 mg NEB QAM RF: 0 potassium chloride [K-Tab] 20 mEq tablet extended release 20 meq PO QAM RF: 0 Entresto 97-103 mg tablet 1 tab PO QAM RF: 0 Referrals Referrals: Ilir Qureshi MD [Primary Care Provider] - Discharge Problem: Pulmonary edema Qualifiers: Chronicity: acute Qualified Code(s): J81.0 - Acute pulmonary edema The scribe's documentation has been prepared under my direction and personally reviewed by me in its entirety. I confirm that the note above accurately reflects all work, treatment, procedures, and medical decision making performed by me.
--- NOTE | 2019-02-06 07:24 | XRay Report ---
XR chest 1V portable CLINICAL HISTORY: 43 years-old Male presenting with Dyspnea. TECHNIQUE: Portable upright AP view of the chest was obtained. COMPARISON: 01/26/2019. FINDINGS: Cardiac silhouette enlarged. Pulmonary vascular prominence. Interstitial prominence. Added density wi th a central and basilar predominance. Small pleural effusions may be present. No large pneumothorax. Osseous structures normal. IMPRESSION: 1. Cardiomegaly with volume overload, congestive change, and moderate pulmonary edema. Congestive ch samia and edema new since prior exam 2. Small bilateral pleural effusions. ACT 112: Negative or not required by law. Electronically signed by: Negro Schroeder M.D. 02/06/2019 7:22 AM
[2019-02-06] MEDS ORDERED: ACETAMINOPHEN 325 MG TAB PO PRN (08:49)
[2019-02-06] MEDS ORDERED: DEXTROSE 50% 50 ML SYRINGE IV PRN (08:49)
[2019-02-06] MEDS ORDERED: GLUCOSE 10 TABS/TUBE PO PRN (08:49)
[2019-02-06] MEDS ORDERED: GLUCAGON FOR INJ 1 MG VIAL SQ PRN (08:49)
[2019-02-06] MEDS ORDERED: NITROGLYCERIN SL 0.4 MG/TAB TAB SL PRN (08:49)
[2019-02-06] MEDS ORDERED: ALUMINUM/MAGNESIUM SUSP 30 ML UDC PO PRN (08:49)
[2019-02-06] MEDS ORDERED: CARBOHYDRATES FOR HYPOGLYCEMIA PO PRN (08:49)
[2019-02-06] MEDS ORDERED: ONDANSETRON INJ 2 MG/ML 2 ML VIAL IV PRN (08:49)
[2019-02-06] MEDS ORDERED: GLUCOSE 40% GEL 15 GM TUBE PO PRN (08:49)
[2019-02-06] MEDS ORDERED: MAGNESIUM HYDROXIDE SUSP 30 ML UDC PO PRN (08:49)
[2019-02-06] MEDS ORDERED: POLYETHYLENE (MIRALAX) 17 GM PACK PO PRN (08:49)
--- NOTE | 2019-02-06 10:15 | Cardiology Consultation ---
Date of Consultation February 06, 2019 Assessment & Plan (1) Combined systolic and diastolic heart failure: (2) Nonischemic cardiomyopathy: (3) Sinus tachycardia: (4) Obesity hypoventilation syndrome: (5) Dyslipidemia: (6) Hypertension: (7) Hypertensive urgency: (8) Morbid obesity: Agree with utilization of IV furosemide as prescribed. Note: his volume status is very difficult to assess given his morbid obesity/habitus. Reinstitute his previously prescribed evidence base heart failure medications Recommend utilization of BiPAP therapy Reassess indication for AICD down the road (EF 50% on 11/03/2018, noncompliance with medications seems to be the biggest issue here) Further recommendations pending the above, evaluated by Dr. Yuri Johns, and his ongoing hospitalization. Supervising Physician Co-Signing Physician Notes Patient seen and examined with Cleveland Otoole PA-C. Agree with findings and assessment as above. at bedside. He presents with findings of acute volume overload. The patient has had several admissions for acute volume overload secondary to medication noncompliance. Historically he is run hypertensive and tachycardic and his home medications were reinstituted with resolution of the tachycardia and hypertension. The patient's states that she does not supervise his medications. Their main concern is ICD placement and they state that they would like an ICD placed. However, they have been counseled on numerous occasions as an outpatient as well documented in the outpatient records that medication adherence is first required before ICD placement can be performed. I once again counseled them on the need for medication adherence at great length today. He was offered a LifeVest on discharge but states that he does not want aware 1. At this point his outpatient medications will be resumed along with IV diuresis for volume overload. We will keep a close eye on his eyes and nose. General: Awake, alert and oriented x 3. No acute distress. HEENT: Normocephalic, atraumatic. Pupils equal, round and reactive to light and accommodation. Extraocular muscles are intact. Anicteric sclera. Moist mucous membranes. Neck: No JVD. No bruit. Cardiovascular: Regular. Positive S-4. Normal S-1 and S-2. No S-3. No murmurs or rubs. Pulmonary: Clear to auscultation B/L. No rales, rhonchi or wheezing Abdomen: Bowel sounds x 4, soft. No rebound, guarding or tenderness. No organomegaly. Extremities: No clubbing, cyanosis or edema. +2 pedal pulses bilaterally. Skin: Warm and dry. History of Present Illness Reason for Consultation: Congestive heart failure Requesting Physician: Noé Jaquez MD Attending Physician: Noé Jaquez MD History of Present Illness Mr. Alok Huff is a complex 43-year-old male seen in Cardiology Consultation at the request of Dr. Noé Jaquez. Reason for consultation is congestive heart failure. Mr. Huff presented to the [facility] Emergency Room due to complaints of acute on chronic dyspnea and cough for the past 7 to 10 days. Patient was notably hypoxic on presentation with an SPO2 of 87%. Blood pressure and heart rate were elevated raising concern for noncompliance. Chest x-ray showed cardiomegaly with volume overload, congestive change, moderate pulmonary edema. CT scan of the chest was technically limited, without evidence of central pulmonary emboli. There was radiographic evidence of fluid overload/congestive failure with pleural effusions and mild septal edema, cardiomegaly, mild aneurysmal dilatation of the ascending thoracic aorta. There were subtle multifocal airspace opacities, pulmonary edema versus pneumonitis. Patient given IV furosemide and supplemental oxygen therapy. Information is very difficult to obtain/unobtainable at this time. The patient has a history of daytime somnolence and also received IV Ativan earlier this morning. Patient notes not liking to take furosemide due to excessive u rination. He does not feel that there is been any significant improvement with the measures administered in the ER. His chest pain is clearly reproducible with palpation of the left chest wall. Troponins were 0.020 then less than 0.015 ng/mL. EKG without acute change. Allergies Allergy/AdvReac Type Severity Reaction Status Date / Time ceftriaxone Allergy Severe SHORTNESS Verified 02/06/19 03:03 OF BREATH lidocaine Allergy Severe SHORTNESS Verified 02/06/19 03:03 OF BREATH, diaphoretic, hives procaine Allergy Severe SHORTNESS Verified 02/06/19 03:03 OF BREATH, diaphoretic, hives amoxicillin Allergy Intermediate HIVES/FACIAL Verified 02/06/19 03:03 SWELLING clavulanic acid Allergy Intermediate HIVES/FACIAL Verified 02/06/19 03:03 SWELLING lisinopril Allergy Intermediate HIVES Verified 02/06/19 03:03 albuterol Allergy Mild proair Verified 02/06/19 03:03 "trouble taking breaths" acetaminophen AdvReac Mild NAUSEA Verified 02/06/19 03:03 Home Medications Home Medications Medication Instructions Recorded Confirmed Type insulin lispro protamine-lispro 40 units SQ BID ml 08/28/18 02/06/19 History 100 unit/mL (50-50) subcutaneous pen esomeprazole magnesium 20 mg 20 mg PO BID cap 09/05/18 02/06/19 History capsule,delayed release aspirin 81 mg tablet,delayed 81 mg PO QAM 09/17/18 02/06/19 History release cholecalciferol (vitamin D3) 25 2,000 units PO BID cap 09/17/18 02/06/19 History mcg (1,000 unit) capsule torsemide 20 mg tablet 60 mg PO BID #60 tab 11/14/18 02/06/19 Rx nitroglycerin [Nitrostat] 0.4 mg SUBLINGUAL UD PRN #100 tab 12/11/18 02/06/19 Rx OneTouch Delica Plus Lancet 30 #400 ea NS 12/23/18 02/06/19 Rx gauge OneTouch Verio #400 ea NS 12/23/18 02/06/19 Rx Trulicity 1.5 mg/0.5 mL 1.5 mg SQ WEEKLY #6 ml NS 12/31/18 02/06/19 Rx subcutaneous pen injector metoprolol succinate 200 mg PO QPM #30 ea 01/19/19 02/06/19 Rx Entresto 1 tab PO QAM 01/26/19 02/06/19 History budesonide [Pulmicort] 0.25 mg NEB QAM 01/26/19 02/06/19 History potassium chloride [K-Tab] 20 meq PO QAM 01/26/19 02/06/19 History spironolactone [Aldactone] 25 mg PO QAM 01/26/19 02/06/19 History Patient History Medical History Acquired claw toe of left foot (Acute) Acquired claw toe of right foot (Acute) Acute on chronic systolic (congestive) heart failure (Chronic) Back pain (Resolved) Bilateral knee pain (Acute) Carpal tunnel syndrome (Acute) Cluster headache (Acute) Cognitive impairment 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 Difficult to manage. Integrated into heart failure clinic. Frequent admissions for heart failure exacerbatio ns. Echo (05/31) EF=25-30% with mod to severe global hypokinesis, basal kelsi-septal akinetic wall, LVH, RVSP elevated at 30-40mmHg, and mod dilated ascending aorta. Managed medically with ASA + BB + ARB/Neprilysin inhibitor (Entresto) + high dose furosemide (160mg BID) + metolazone (3x weekly). Considering ICD given EF. COPD (chronic obstructive pulmonary disease) (Chronic) Depression Depression with anxiety (Acute) Diabetes mellitus with diabetic polyneuropathy (Acute) Diabetes mellitus, type II (Chronic) DM II (diabetes mellitus, type II), controlled Dyslipidemia (Acute) Fatty liver GERD (gastroesophageal reflux disease) GERD (gastroesophageal reflux disease) Hemoptysis HTN (hypertension) Hypertension (Chronic) Learning disability (Resolved) Lung nodule (Acute) Medical non-compliance Mixed hearing loss of left ear (Acute) Morbid obesity (Chronic) BMI> 50 Morbid obesity with BMI of 50.0-59.9, adult Nonischemic cardiomyopathy EF 30-35% Nonischemic cardiomyopathy Obstructive sleep apnea (Chronic) Polysomnography (07/28) with severe mixed osbtructive and central apnea treated with Bipap 27/11 MARIELENA (obstructive sleep apnea) Does not comply with CPAP Peripheral neuropathy (Chronic) 2/2 DM type II. Located on the feet bilaterally. Not requiring medication. Followed by podiatry Right-sided sensorineural hearing loss (Acute) Sinus bradycardia Sinus tachycardia (Acute) TMJ (dislocation of temporomandibular joint) (Acute) Umbilical hernia (Acute) Vitamin D insufficiency Previously deficient, taking Vit D supplementation Surgical History History of carpal tunnel surgery History of cholecystectomy S/P tonsillectomy Family History Father , age 57 of an LA. Heart disease Myocardial infarction Mother , age 67 of a ruptured neck vessel Sudden Other Depression Lung disease No pertinent family history Social History Preferred Language: [place] Communication Ability: Effective Visual Impairment: No Limitations Hearing Ability: Normal Funeral Home Associate Required: No Beliefs That Will Affect Care: None marital status: Current Living Situation: Spouse current occupational status: unemployed Feels Safe at Home: Yes Smoking Status: Former smoker Tobacco Type: cigarettes ; Age Started Using Tobacco: 14 ; Age Quit Using Tobacco: 18 ; Second Hand Exposure: No ; Hx Alcohol Use: No Hx Substance Use: No Childhood Exposure to Second-Hand Smoke: Yes Dental Care, Regularly: Yes Physical Activity Frequency: Does not Exercise Review of Systems Review of Systems: All systems reviewed & are unremarkable except as noted in HPI & below and Unobtainable due to reduced consciousness Physical Exam Physical Exam: General: Somnolent. Tachypneic. HEENT: Normocephalic. Atraumatic. PER. Conjunctiva pink, sclera clear. Neck: No overt JVD. Chest: Reproducible chest wall discomfort, below the left breast area Heart: Regular at 100 bpm. Distant heart sounds. No murmur appreciated. PMI was not palpated. Lungs: Clear posteriorly with poor effort noted. Abdomen: Markedly obese. Positive bowel sounds. Nontender. Extremities: Minimal edema. Lymphedematous type changes. No clubbing. No cyanosis. Limited neurological: Somnolent. Results & Data Vital Signs (Past 12 Hours) Vital Signs Temp Pulse Pulse Resp BP BP BP 02/06/19 08:55 36.8 C 105 H 28 H 154/104 H 02/06/19 07:51 120 H 24 184/112 H 02/06/19 06:46 107 H 24 143/86 H 02/06/19 06:01 114 H 39 H 149/101 H 02/06/19 06:00 116 H 34 H 02/06/19 05:56 118 H 29 H 175/119 H 02/06/19 05:51 121 H 21 177/130 H 02/06/19 05:50 125 H 25 H 02/06/19 05:40 121 H 02/06/19 05:30 117 H 15 02/06/19 05:21 123 H 32 H 02/06/19 05:20 123 H 27 H 218/158 H 02/06/19 05:19 121 H 18 212/125 H 02/06/19 05:16 119 H 25 H 226/194 H 02/06/19 05:15 117 H 30 H 182/146 H 02/06/19 05:11 122 H 25 H 02/06/19 05:10 128 H 27 H 182/146 H 02/06/19 05:08 118 H 29 H 02/06/19 03:56 92 H 39 H 229/120 H 02/06/19 03:54 72 36 H 200/120 H 02/06/19 03:53 89 22 200/120 H 02/06/19 03:50 87 28 H 02/06/19 03:40 104 H 26 H 02/06/19 03:31 69 29 H 02/06/19 03:30 99 H 26 H 218/133 H 02/06/19 03:20 94 H 33 H 02/06/19 03:10 110 H 34 H 02/06/19 03:00 93 H 24 198/149 H 02/06/19 02:50 105 H 31 H 02/06/19 02:40 02/06/19 02:31 184/121 H 02/06/19 02:30 02/06/19 02:20 02/06/19 02:18 02/06/19 02:17 02/06/19 02:13 36.9 C 114 H 28 H 184/141 H Pulse Ox 02/06/19 08:55 95 02/06/19 07:51 95 02/06/19 06:46 95 02/06/19 06:01 90 02/06/19 06:00 91 02/06/19 05:56 93 02/06/19 05:51 91 02/06/19 05:50 94 02/06/19 05:40 93 02/06/19 05:30 93 02/06/19 05:21 93 02/06/19 05:20 92 02/06/19 05:19 94 02/06/19 05:16 89 L 02/06/19 05:15 92 02/06/19 05:11 94 02/06/19 05:10 97 02/06/19 05:08 02/06/19 03:56 97 02/06/19 03:54 93 02/06/19 03:53 92 02/06/19 03:50 94 02/06/19 03:40 91 02/06/19 03:31 92 02/06/19 03:30 92 02/06/19 03:20 91 02/06/19 03:10 92 02/06/19 03:00 96 02/06/19 02:50 95 02/06/19 02:40 97 02/06/19 02:31 91 02/06/19 02:30 93 02/06/19 02:20 91 02/06/19 02:18 94 02/06/19 02:17 92 02/06/19 02:13 87 L Laboratory Results Laboratory Results - last 24 hr 02/06/19 02/06/19 02/06/19 02:55 02:55 02:55 WBC 9.40 RBC 4.61 L Hgb 13.4 L Hct 39.4 L MCV 85.5 MCH 29.1 MCHC 34.0 RDW Std Deviation 47.6 H RDW Coeff of Zoltan 15.3 H Plt Count 142 MPV 10.1 Immature Gran % (Auto) 0.2 Neut % (Auto) 72.1 Lymph % (Auto) 20.1 [place] % (Auto) 6.2 Eos % (Auto) 1.2 Baso % (Auto) 0.2 Immature Gran # (Auto) 0.02 Neut # (Auto) 6.78 H Lymph # (Auto) 1.89 [place] # (Auto) 0.58 Eos # (Auto) 0.11 Baso # (Auto) 0.02 PT 11.5 INR 1.1 APTT 28.1 PTT Ratio 1.0 D-Dimer 740 H* Sodium 139 Potassium 3.8 Chloride 109 H Carbon Dioxide 26 Anion Gap 4.0 BUN 15 Creatinine 1.08 Est Cr Clr Drug Dosing 132.4 Est GFR ( Amer) 97.6 Est GFR (Non-Af Amer) 84.2 BUN/Creatinine Ratio 13.5 Glucose 138 H POC Glucose Calcium 8.3 L Total Bilirubin 1.1 H AST 12 L ALT 21 Alkaline Phosphatase 85 Troponin I 0.020 NT-Pro-B Natriuret Pep 4467 H Total Protein 6.8 Albumin 3.2 L Globulin 3.6 Albumin/Globulin Ratio 0.9 02/06/19 02/06/19 09:17 10:00 WBC RBC Hgb Hct MCV MCH MCHC RDW Std Deviation RDW Coeff of Zoltan Plt Count MPV Immature Gran % (Auto) Neut % (Auto) Lymph % (Auto) [place] % (Auto) Eos % (Auto) Baso % (Auto) Immature Gran # (Auto) Neut # (Auto) Lymph # (Auto) [place] # (Auto) Eos # (Auto) Baso # (Auto) PT INR APTT PTT Ratio D-Dimer Sodium Potassium Chloride Carbon Dioxide Anion Gap BUN Creatinine Est Cr Clr Drug Dosing Est GFR ( Amer) Est GFR (Non-Af Amer) BUN/Creatinine Ratio Glucose POC Glucose 152 H Calcium Total Bilirubin AST ALT Alkaline Phosphatase Troponin I < 0.015 NT-Pro-B Natriuret Pep Total Protein Albumin Globulin Albumin/Globulin Ratio Diagnostic Findings January 15, 2019 TTE Interpretation Summary ([facility], Dr. Pro): Technically limited study. Moderately dilated LV. Severe global hypokinesis of the LV. Moderate to severely reduced LV systolic dysfunction with an ejection fraction of 30 to 35%. Reduced RV systolic function by TAPSE. Grade 2 diastolic dysfunction February 06, 2019 EKG revealed sinus tachycardia 111 bpm with occasional premature ventricular complexes, left atrial enlargement, abnormal QRST angle. QRS duration is 104 ms. QTc is 489 ms. Continuous telemetry monitoring since admission reveals sinus/sinus tachycardia with occasional premature ventricular complexes. (1) Combined systolic and diastolic heart failure Heart failure chronicity: acute Qualified Code(s): I50.41 - Acute combined systolic (congestive) and diastolic (congestive) heart failure
[2019-02-06] MEDS: BUDESONIDE 0.25 MG/2 ML VIAL (PULMICORT) INH SCH (11:26)
[2019-02-06] MEDS ORDERED: NITROGLYCERIN 2% OINTMENT 30GM TUBE EXT SCH (12:00)
[2019-02-06] MEDS: INSULIN ASPART 100 UNITS/ML 3 ML PEN SC SCH ×4 (13:21→21:02)
[2019-02-06] MEDS ORDERED: HEPARIN SOD 5,000 UNIT/0.5 ML VIAL SQ SCH (14:00)
--- NOTE | 2019-02-06 14:31 | History & Physical Bridge Note ---
Date of Service February 06, 2019 History & Physical Bridge Note Patient seen and examined this morning. Lethargic from Ativan given in the ED. He is however, breathing well and saturating on room air. Unfortunately, quite familiar with Mr. Huff as he is admitted on a regular basis for heart failure exacerbations. Will diurese as aggressively as able as he frequently leaves the hospital before truly being euvolemic.
[2019-02-06] MEDS ORDERED: FUROSEMIDE 40 MG/4 ML VIAL IV SCH (17:00)
[2019-02-06] MEDS: CHOLECALCIFEROL 1,000 UNITS TAB PO SCH ×2 (17:21→21:00)
[2019-02-06] MEDS: PANTOprazole 40 MG TAB PO SCH ×2 (17:21→21:00)
[2019-02-06] MEDS: POTASSIUM CHLORIDE 20 MEQ TABCR PO SCH ×2 (17:21→21:00)
[2019-02-06] MEDS: SACUBITRIL-VALSARTAN 24-26 MG TAB PO SCH (17:48)
[2019-02-06] MEDS: SPIRONOLACTONE 25 MG TAB PO SCH (17:48)
[2019-02-06] MEDS: SACUBITRIL-VALSARTAN 49/51 MG TAB PO SCH (17:48)
[2019-02-06] MEDS: ASPIRIN 81 MG ECTAB PO SCH (17:48)
[2019-02-06] MEDS: FUROSEMIDE 80 MG in SYRINGE 0 ML IV SCH (17:49)
[2019-02-06] MEDS: HEPARIN SOD 5,000 UNIT/0.5 ML VIAL SQ SCH (21:03)
[2019-02-06] MEDS: METOPROLOL SUCC 50MG EXT REL TAB PO SCH (21:03)
[2019-02-07 06:10] LABS: Basophils # (auto) 0.01 K/uL (0-0.2); Basophils % (auto) 0.1 %; Eosinophils # (auto) 0.17 K/uL (0-0.5); Eosinophils % (auto) 2.2 %; Hematocrit (blood only) 45.5 % (42-52); Hemoglobin 15.6 g/dL (14.0-18.0); Immature Granulocytes # (auto) 0.03 K/uL (0.00-0.02); Immature Granulocytes % (auto) 0.4 %; Lymphocytes # (auto) 2.04 K/uL (1.2-3.4); Lymphocytes % (auto) 26.7 %; Mean Corpuscular Hemoglobin 29.2 pg (25-34); Mean Corpuscular Hgb Conc 34.3 g/dL (32-36); Mean Corpuscular Volume 85.2 fL (80-100); Mean Platelet Volume 10.5 fL (7.4-10.4); Monocytes % (auto) 7.9 %; Neutrophils # (auto) 4.78 K/uL (1.4-6.5); Neutrophils % (auto) 62.7 %; Platelet Count 156 K/uL (130-400); RDW Coefficient of Variation 15.2 % (11.5-14.5); RDW Standard Deviation 46.6 fL (36.4-46.3); Red Blood Count 5.34 M/uL (4.7-6.1); White Blood Count 7.63 K/uL (4.8-10.8)
[2019-02-07 06:16] LABS: INR 1.1 (0.9-1.1); Partial Thromboplastin Ratio 1.1; Partial Thromboplastin Time 29.1 Seconds (21.0-31.0); Prothrombin Time 11.2 Seconds (9.0-12.0)
[2019-02-07 06:37] LABS: Albumin Level 3.4 gm/dl (3.4-5.0); BUN Creatinine Ratio 12.7 (10-20); Calcium 8.9 mg/dl (8.5-10.1); Creatinine Clr Calc Pharmacy 146.9 ml/min; Est GFR (African American) 116.9; Est GFR (Non-African American) 100.9; Potassium 3.4 mmol/L (3.5-5.1)
[2019-02-07 06:40] LABS: Albumin Globulin Ratio 0.8 (0.9-2); Bilirubin,Total 1.3 mg/dl (0.2-1); Globulin 4.2 gm/dl (2.5-4.0); Total Protein 7.6 gm/dl (6.4-8.2)
[2019-02-07] MEDS: BUDESONIDE 0.25 MG/2 ML VIAL (PULMICORT) INH SCH (06:55)
[2019-02-07] MEDS: CHOLECALCIFEROL 1,000 UNITS TAB PO SCH ×2 (08:18→21:01)
[2019-02-07] MEDS: SACUBITRIL-VALSARTAN 24-26 MG TAB PO SCH (08:18)
[2019-02-07] MEDS: POTASSIUM CHLORIDE 20 MEQ TABCR PO SCH ×3 (08:18→21:01)
[2019-02-07] MEDS: SACUBITRIL-VALSARTAN 49/51 MG TAB PO SCH (08:19)
[2019-02-07] MEDS: SPIRONOLACTONE 25 MG TAB PO SCH (08:19)
[2019-02-07] MEDS: PANTOprazole 40 MG TAB PO SCH ×2 (08:19→21:01)
[2019-02-07] MEDS: FUROSEMIDE 80 MG in SYRINGE 0 ML IV SCH ×2 (08:19→17:14)
[2019-02-07] MEDS: ASPIRIN 81 MG ECTAB PO SCH (08:19)
[2019-02-07] MEDS: HEPARIN SOD 5,000 UNIT/0.5 ML VIAL SQ SCH ×2 (08:20→21:00)
[2019-02-07] MEDS: INSULIN ASPART 100 UNITS/ML 3 ML PEN SC SCH ×4 (08:24→20:59)
--- NOTE | 2019-02-07 15:26 | Hospitalist Progress Note ---
Date of Service February 07, 2019 Assessment & Plan (1) Acute on chronic combined systolic and diastolic CHF (congestive heart failure): Acute on chronic combined systolic diastolic CHF due to non-compliance with medications. Most recent echocardiogram on 01/15/2019 shows EF 30 to 35%. - Continue Lasix IV - Continue aspirin, Entresto, metoprolol succinate, spironolactone, and potassium - I&Os - Cardiology consulted (2) Hypertension: BP 115/70 today. - Continue home beta-mansoor, Entresto, & spironolactone (3) Nonischemic cardiomyopathy: As above. (4) Diabetes mellitus, type II: A1c was 7.7% in 11/2018. - Hold Trulicity and lispro 50-50 mix. - Patient Accu-Cheks before meals and at bedtime with NovoLog coverage per scale (5) Obstructive sleep apnea: May use home CPAP (6) Dyslipidemia: Not on anything at home. - No acute inpatient needs (7) GERD (gastroesophageal reflux disease): On Nexium 40 mg p.o. daily. - Substitute pantoprazole (8) COPD (chronic obstructive pulmonary disease): No wheezing on exam. - Continue budesonide respules 0.25 mg twice daily. (9) DVT prophylaxis: Heparin 5000 units SQ Q12h Subjective Reports feeling better today. Reports having hemoptysis at home which is bothering him. His shortness of breath is improved today. Reports no fevers/chills, chest pain, abdominal pain, nausea, or vomiting. Physical Exam Constitutional: WD/WN, vitals as above + acute distress and + morbidly obese Eyes: EOM intact bilaterally; no conjunctival abnormality ENMT: external ear and nose normal, oropharynx normal Neck: trachea midline, no thyromegaly normal visual inspection Respiratory: normal respiratory effort, lungs clear to auscultation no respiratory distress Cardiovascular: Rate/Rhythm: regular rate and regular rhythm Heart Sounds: normal S1 and normal S2 Extremities: + edema Gastrointestinal (Abdomen): Inspection/Auscultation: abdomen normal to inspection; abdomen not distended Musculoskeletal: no cyanosis or clubbing, extremities motor strength 5/5 Skin: no rashes, warm and dry Neurologic: moves all extremities and awake Psychiatric: Orientation: alert, oriented to person and cooperative Results & Data Vital Signs (Past 12 Hours) Vital Signs Temp Pulse Pulse Resp BP Pulse Ox 02/07/19 13:14 36.6 C 82 22 114/68 93 02/07/19 08:00 36.4 C L 53 L 70 22 130/90 96 02/07/19 06:56 56 L 18 95 02/07/19 03:35 36.4 C L 69 20 141/86 H 93 PG Care Time/CCT Total # of Minutes Spent Total Time Spent with Patient: Total time spent is greater than 50% in coordination of care (as documented) at patient's floor/unit and/or counseling patient: (1) Diabetes mellitus, type II Diabetes mellitus long term care social worker insulin use: with long term care social worker use Diabetes mellitus complication status: with other specified complication Qualified Code(s): E11.69 - Type 2 diabetes mellitus with other specified complication; 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
--- NOTE | 2019-02-07 16:13 | Cardiology Progress Note ---
Date of Service February 07, 2019 Assessment & Plan (1) Combined systolic and diastolic heart failure: (2) Nonischemic cardiomyopathy: (3) Sinus tachycardia: (4) Obesity hypoventilation syndrome: (5) Dyslipidemia: (6) Hypertension: (7) Hypertensive urgency: (8) Morbid obesity: Patient has diuresed 4 L since admission. His blood pressure and tachycardia are now well controlled after he was given his home medical regimen. We will continue with IV diuresis along with his oral outpatient medical regimen. As has been documented numerous times once again the patient was counseled that strict medication adherence is necessary for optimal medical management for 3 to 6 months prior to ICD possibly being placed for nonischemic cardiomyopathy. Once again he was offered LifeVest and he declined Continue to monitor on telemetry along with strict I's and O's and daily weights. Subjective Patient seen and examined, states he is feeling much better since admission. States his breathing is significantly improved however not yet back to baseline. Once again is questioning ICD placement. Patient once again states he has been compliant with his medications however, brisk diuresis and hypertension/tachycardia resolution with reinstitution of his outpatient medical regimen would suggest otherwise. Telemetry reviewed: Normal sinus rhythm without arrhythmia or significant ectopy. Review of Systems Review of Systems: All systems reviewed & are unremarkable except as noted in HPI & below Physical Exam Physical Exam: General: Awake, alert and oriented x 3. No acute distress. HEENT: Normocephalic, atraumatic. Pupils equal, round and reactive to light and accommodation. Extraocular muscles are intact. Anicteric sclera. Moist mucous membranes. Neck: No JVD. No bruit. Cardiovascular: Regular. But distant unable appreciate murmurs rubs or gallops. Pulmonary: Poor air movement in the bilateral bases. Abdomen: Bowel sounds x 4, soft. Morbidly obese. No rebound, guarding or tenderness. No organomegaly. Extremities: No clubbing, cyanosis. +2 bilateral lower extremity nonpitting edema. +2 pedal pulses bilaterally. Skin: Warm and dry. Chronic venous stasis changes of the lower extremities Results & Data Vital Signs (Past 12 Hours) Vital Signs Temp Pulse Pulse Resp BP Pulse Ox 02/07/19 13:14 36.6 C 82 22 114/68 93 02/07/19 08:00 36.4 C L 53 L 70 22 130/90 96 02/07/19 06:56 56 L 18 95 (1) Combined systolic and diastolic heart failure Heart failure chronicity: acute Qualified Code(s): I50.41 - Acute combined systolic (congestive) and diastolic (congestive) heart failure
[2019-02-07] MEDS: METOPROLOL SUCC 50MG EXT REL TAB PO SCH (21:01)
[2019-02-08 06:00] LABS: Basophils # (auto) 0.01 K/uL (0-0.2); Basophils % (auto) 0.1 %; Eosinophils # (auto) 0.17 K/uL (0-0.5); Eosinophils % (auto) 1.9 %; Hematocrit (blood only) 46.5 % (42-52); Hemoglobin 15.8 g/dL (14.0-18.0); Immature Granulocytes # (auto) 0.04 K/uL (0.00-0.02); Immature Granulocytes % (auto) 0.5 %; Lymphocytes # (auto) 2.49 K/uL (1.2-3.4); Lymphocytes % (auto) 28.4 %; Mean Corpuscular Volume 85.3 fL (80-100); Mean Platelet Volume 10.6 fL (7.4-10.4); Monocytes # (auto) 0.82 K/uL (0.11-0.59); Monocytes % (auto) 9.4 %; Neutrophils # (auto) 5.23 K/uL (1.4-6.5); Neutrophils % (auto) 59.7 %; Platelet Count 177 K/uL (130-400); RDW Coefficient of Variation 15.5 % (11.5-14.5); RDW Standard Deviation 47.1 fL (36.4-46.3); Red Blood Count 5.45 M/uL (4.7-6.1); White Blood Count 8.76 K/uL (4.8-10.8)
[2019-02-08 06:39] LABS: Albumin Level 3.2 gm/dl (3.4-5.0); BUN Creatinine Ratio 12.9 (10-20); Calcium 8.9 mg/dl (8.5-10.1); Creatinine Clr Calc Pharmacy 73.6 ml/min; Est GFR (African American) 50.9; Est GFR (Non-African American) 43.9; Potassium 3.8 mmol/L (3.5-5.1)
[2019-02-08 06:41] LABS: INR 1.1 (0.9-1.1); Prothrombin Time 10.9 Seconds (9.0-12.0)
[2019-02-08 06:42] LABS: Albumin Globulin Ratio 0.8 (0.9-2); Bilirubin,Total 0.7 mg/dl (0.2-1); Total Protein 7.2 gm/dl (6.4-8.2)
[2019-02-08] MEDS: BUDESONIDE 0.25 MG/2 ML VIAL (PULMICORT) INH SCH (07:26)
[2019-02-08] MEDS: CHOLECALCIFEROL 1,000 UNITS TAB PO SCH (08:08)
[2019-02-08] MEDS: HEPARIN SOD 5,000 UNIT/0.5 ML VIAL SQ SCH (08:08)
[2019-02-08] MEDS: PANTOprazole 40 MG TAB PO SCH (08:08)
[2019-02-08] MEDS: SPIRONOLACTONE 25 MG TAB PO SCH (08:08)
[2019-02-08] MEDS: FUROSEMIDE 80 MG in SYRINGE 0 ML IV SCH (08:08)
[2019-02-08] MEDS: INSULIN ASPART 100 UNITS/ML 3 ML PEN SC SCH ×2 (08:09→12:19)
[2019-02-08] MEDS: ASPIRIN 81 MG ECTAB PO SCH (08:09)
[2019-02-08] MEDS: SACUBITRIL-VALSARTAN 24-26 MG TAB PO SCH (08:09)
[2019-02-08] MEDS: SACUBITRIL-VALSARTAN 49/51 MG TAB PO SCH (08:09)
[2019-02-08] MEDS: POTASSIUM CHLORIDE 20 MEQ TABCR PO SCH (08:13)
[2019-02-08] MEDS ORDERED: SODIUM CHLORIDE 0.9% 1000ML 250 ML IV ONE (10:51)
[2019-02-08] MEDS ORDERED: TORSEMIDE 20 MG TAB PO SCH (12:00)
--- NOTE | 2019-02-08 12:06 | Cardiology Progress Note ---
Date of Service February 08, 2019 Assessment & Plan (1) Combined systolic and diastolic heart failure: (2) Nonischemic cardiomyopathy: (3) Sinus tachycardia: (4) Obesity hypoventilation syndrome: (5) Dyslipidemia: (6) Hypertension: (7) Hypertensive urgency: (8) Morbid obesity: The patient has been off of diuretics and will need to be restarted on torsemide which he took at home. He has had problems however, with medical compliance in the past. Continue current medications. Previously offered a LifeVest and declined. No additional cardiac work-up is indicated. The patient can be discharged per internal medicine. Subjective No new cardiac complaints today. Review of Systems Review of Systems: All systems reviewed & are unremarkable except as noted in HPI & below Nothing additional to add. Physical Exam Physical Exam: General: no acute distress and stated age Head: normocephalic, no masses, lesions, tenderness or abnormalities Eyes: conjunctiva are pink and non-injected, sclera clear Neck: supple, no adenopathy, no bruits, normal jugular venous pulse, no hepatojugular reflux Chest: normal shape and normal respiratory effort Lungs: clear to auscultation and percussion Cardiac Exam: - regular rate & rhythm, no murmurs gallops or rubs - normal S1, normal S2 Pulses: 2(+) throughout Abdomen: abdomen soft, non-tender, no abnormal masses and no hepatosplenomegaly Musculoskeletal: no gait disturbance, no joint inflammation, no deforming arthritis Extremities: no edema and no cyanosis Neuro: grossly normal exam Results & Data Vital Signs (Past 12 Hours) Vital Signs Temp Pulse Pulse Pulse Resp BP Pulse Ox 02/08/19 11:27 36.7 C 70 20 120/81 95 02/08/19 08:00 36.4 C L 68 61 18 101/62 95 02/08/19 07:26 52 L 18 92 02/08/19 03:12 36.8 C 65 18 112/63 90 Laboratory Results Laboratory Results - last 24 hr 02/07/19 02/07/19 02/07/19 11:45 16:46 20:44 WBC RBC Hgb Hct MCV MCH MCHC RDW Std Deviation RDW Coeff of Zoltan Plt Count MPV Immature Gran % (Auto) Neut % (Auto) Lymph % (Auto) [place] % (Auto) Eos % (Auto) Baso % (Auto) Immature Gran # (Auto) Neut # (Auto) Lymph # (Auto) [place] # (Auto) Eos # (Auto) Baso # (Auto) PT INR Sodium Potassium Chloride Carbon Dioxide Anion Gap BUN Creatinine Est Cr Clr Drug Dosing Est GFR ( Amer) Est GFR (Non-Af Amer) BUN/Creatinine Ratio Glucose POC Glucose 129 H 143 H 227 H Calcium Total Bilirubin AST ALT Alkaline Phosphatase Total Protein Albumin Globulin Albumin/Globulin Ratio 02/08/19 02/08/19 02/08/19 05:48 05:48 05:48 WBC 8.76 RBC 5.45 Hgb 15.8 Hct 46.5 MCV 85.3 MCH 29.0 MCHC 34.0 RDW Std Deviation 47.1 H RDW Coeff of Zoltan 15.5 H Plt Count 177 MPV 10.6 H Immature Gran % (Auto) 0.5 Neut % (Auto) 59.7 Lymph % (Auto) 28.4 [place] % (Auto) 9.4 Eos % (Auto) 1.9 Baso % (Auto) 0.1 Immature Gran # (Auto) 0.04 H Neut # (Auto) 5.23 Lymph # (Auto) 2.49 [place] # (Auto) 0.82 H Eos # (Auto) 0.17 Baso # (Auto) 0.01 PT 10.9 INR 1.1 Sodium 138 Potassium 3.8 Chloride 102 Carbon Dioxide 32 Anion Gap 4.0 BUN 24 H D Creatinine 1.85 H D Est Cr Clr Drug Dosing 73.6 Est GFR ( Amer) 50.9 Est GFR (Non-Af Amer) 43.9 BUN/Creatinine Ratio 12.9 Glucose 138 H POC Glucose Calcium 8.9 Total Bilirubin 0.7 D AST 11 L ALT 20 Alkaline Phosphatase 98 Total Protein 7.2 Albumin 3.2 L Globulin 4.0 Albumin/Globulin Ratio 0.8 L 02/08/19 02/08/19 07:35 11:37 WBC RBC Hgb Hct MCV MCH MCHC RDW Std Deviation RDW Coeff of Zoltan Plt Count MPV Immature Gran % (Auto) Neut % (Auto) Lymph % (Auto) [place] % (Auto) Eos % (Auto) Baso % (Auto) Immature Gran # (Auto) Neut # (Auto) Lymph # (Auto) [place] # (Auto) Eos # (Auto) Baso # (Auto) PT INR Sodium Potassium Chloride Carbon Dioxide Anion Gap BUN Creatinine Est Cr Clr Drug Dosing Est GFR ( Amer) Est GFR (Non-Af Amer) BUN/Creatinine Ratio Glucose POC Glucose 153 H 139 H Calcium Total Bilirubin AST ALT Alkaline Phosphatase Total Protein Albumin Globulin Albumin/Globulin Ratio Medications Administered Current Inpatient Medications Acetaminophen (Tylenol) 650 mg PO Q4H PRN PRN Reason: Pain or Fever Stop: 03/08/19 08:48 Al Hydrox/Mg Hydrox/Simethicone (Maalox) 15 ml PO Q4H PRN PRN Reason: Dyspepsia Stop: 03/08/19 08:48 Aspirin ([facility]rin [facility]ab) [facility] [place] Stop: 03/08/19 08:59 Last Admin: 02/08/19 08:09 Dose: 81 mg Documented by: Budesonide (Pulmicort Respules) 0.25 mg INH QAM [facility] Stop: 03/08/19 08:59 Last Admin: 02/08/19 07:26 Dose: 0.25 mg Documented by: Dextrose (Dextrose 50%) 25 - 50 ml IV UD PRN; Protocol PRN Reason: Hypoglycemia Protocol Stop: 03/08/19 08:48 Glucagon (Glucagen) 1 mg SQ UD PRN; Protocol PRN Reason: Hypoglycemia Protocol Stop: 03/08/19 08:48 Glucose (Dex4 Glucose) 4 - 8 tabs PO UD PRN; Protocol PRN Reason: Hypoglycemia Protocol Stop: 03/08/19 08:48 Glucose (Glucose 40%) 15 - 30 gm PO UD PRN; Protocol PRN Reason: Hypoglycemia Protocol Stop: 03/08/19 08:48 Heparin Sodium (Porcine) (Heparin Sodium (Porcine)) 5,000 units SQ Q12H [facility] Stop: 03/08/19 20:59 Last Admin: 02/08/19 08:08 Dose: 5,000 units Documented by: Insulin Aspart (Novolog Flexpen) 0 units SC ACHS [facility] Stop: 03/08/19 08:48 Last Admin: 02/08/19 08:09 Dose: 6 units Documented by: Magnesium Hydroxide (Milk Of Magnesia) 30 ml PO Q12H PRN PRN Reason: Constipation Stop: 03/08/19 08:48 Metoprolol Succinate (Toprol Xl) 200 mg PO QPM [facility] Stop: 03/08/19 20:59 Last Admin: 02/07/19 21:01 Dose: 200 mg Documented by: Miscellaneous (Carbohydrates For Hypoglycemia) 15 - 30 gm PO UD PRN PRN Reason: Hypoglycemia Protocol Stop: 03/08/19 08:48 Nitroglycerin (Nitrostat) 0.4 mg SL UD PRN PRN Reason: chest pain Stop: 03/08/19 08:48 Ondansetron HCl (Zofran) 4 mg IV Q6H PRN PRN Reason: Nausea Stop: 03/08/19 08:48 Pantoprazole Sodium (Protonix) 40 mg PO BID [facility] Stop: 03/08/19 08:59 Last Admin: 02/08/19 08:08 Dose: 40 mg Documented by: Polyethylene Glycol (Miralax Powder Packet) 17 gm PO DAILY PRN PRN Reason: Constipation Stop: 03/08/19 08:48 Potassium Chloride (Klor-Con M20) 20 meq PO BID [facility] Stop: 03/08/19 08:59 Last Admin: 02/08/19 08:13 Dose: Not Given Documented by: Sacubitril/Valsartan (Entresto 49/51mg) 1 tab PO QAM [facility] Stop: 03/08/19 08:59 Last Admin: 02/08/19 08:09 Dose: 1 tab Documented by: Spironolactone (Aldactone) 25 mg PO QAM [facility] Stop: 03/08/19 08:59 Last Admin: 02/08/19 08:08 Dose: 25 mg Documented by: Torsemide (Demadex) 20 mg PO BID17 [facility] Stop: 03/10/19 11:59 Vitamin D (Vitamin D3) 2,000 units PO BID [facility] Stop: 03/08/19 08:59 Last Admin: 02/08/19 08:08 Dose: 2,000 units Documented by: (1) Combined systolic and diastolic heart failure Heart failure chronicity: acute Qualified Code(s): I50.41 - Acute combined systolic (congestive) and diastolic (congestive) heart failure
[2019-02-08 14:24] LABS: BUN Creatinine Ratio 18.3 (10-20); Calcium 8.9 mg/dl (8.5-10.1); Est GFR (African American) 57.2; Est GFR (Non-African American) 49.4; Potassium 3.9 mmol/L (3.5-5.1)
--- NOTE | 2019-02-08 16:38 | Discharge Summary ---
Date of Service February 08, 2019 Admission HPI Per Admitting Provider The patient is a 43-year-old male with a past medical history including combined systolic and diastolic CHF, hypertensive urgency, diabetes mellitus, COPD, GERD, dyslipidemia, morbid obesity, obesity hypoventilation syndrome and hypertension. He presents to the emergency department with 1 day of progressive worsening shortness of breath and dyspnea on exertion. His HPI somewhat limited due to the severity of shortness of breath. Principal Diagnosis Acute exacerbation of chronic systolic heart failure Discharge Exam Constitutional WD/WN, vitals as above + morbidly obese; no acute distress Eyes EOM intact bilaterally; no conjunctival abnormality ENMT external ear and nose normal, oropharynx normal Neck trachea midline, no thyromegaly normal visual inspection Respiratory normal respiratory effort, lungs clear to auscultation no respiratory distress Cardiovascular Rate/Rhythm: regular rate and regular rhythm Heart Sounds: normal S1 and normal S2 Extremities: no edema Gastrointestinal (Abdomen) Inspection/Auscultation: abdomen normal to inspection; abdomen not distended Musculoskeletal no cyanosis or clubbing, extremities motor strength 5/5 Skin no rashes, warm and dry Neurologic moves all extremities and awake Psychiatric Orientation: alert, oriented to person and cooperative Discharge Data Allergies Allergy/AdvReac Type Severity Reaction Status Date / Time ceftriaxone Allergy Severe SHORTNESS Verified 02/06/19 03:03 OF BREATH lidocaine Allergy Severe SHORTNESS Verified 02/06/19 03:03 OF BREATH, diaphoretic, hives procaine Allergy Severe SHORTNESS Verified 02/06/19 03:03 OF BREATH, diaphoretic, hives amoxicillin Allergy Intermediate HIVES/FACIAL Verified 02/06/19 03:03 SWELLING clavulanic acid Allergy Intermediate HIVES/FACIAL Verified 02/06/19 03:03 SWELLING lisinopril Allergy Intermediate HIVES Verified 02/06/19 03:03 albuterol Allergy Mild proair Verified 02/06/19 03:03 "trouble taking breaths" acetaminophen AdvReac Mild NAUSEA Verified 02/06/19 03:03 Consultations 02/06/19 08:49 Consult Cardiology Routine Consult Case Management - Discharge Planning Routine Ordered Studies 02/06/19 03:40 CT angio chest PE protocol Urgent Hospital Course (1) Acute on chronic combined systolic and diastolic CHF (congestive heart failure): Acute on chronic combined systolic diastolic CHF due to non-compliance with medications. Most recent echocardiogram on 01/15/2019 shows EF 30 to 35%. - Continued Lasix IV - Continued aspirin, Entresto, metoprolol succinate, spironolactone, and potassium By 02/08, he was at his baseline weight. Unfortunately, he developed an MIKEY. We held his second dose of Lasix and even gave a small bolus back. Cr was downtrending in the afternoon. He reported he had to go today as he could not get transport tomorrow and would not stay until Sunday. We did discuss the kidney injury; however, he was unwilling to stay. He was discharged with close follow up with his PCP and cardiology team. (2) Hypertension: BP was stable in the hospital. - Continued home beta-mansoor, Entresto, & spironolactone (3) Nonischemic cardiomyopathy: As above. (4) Diabetes mellitus, type II: A1c was 7.7% in 11/2018. - Held Trulicity and lispro 50-50 mix. - Patient Accu-Cheks before meals and at bedtime with NovoLog coverage per scale (5) Obstructive sleep apnea: May use home CPAP (6) Dyslipidemia: Not on anything at home. - No acute inpatient needs (7) GERD (gastroesophageal reflux disease): On Nexium 40 mg p.o. daily. - Substitute pantoprazole (8) COPD (chronic obstructive pulmonary disease): No wheezing on exam. - Continue budesonide respules 0.25 mg twice daily. (9) DVT prophylaxis: Heparin 5000 units SQ Q12h Total Time Total Time Spent Total Time Spent (In Minutes): 35 Discharge Plan Discharge Items Patient Disposition: Home - Home Health Services Reason For Visit: CHF EXACERBATION Discharge Diagnosis: CHF exacerbation Activity: Resume your previous activity Non-emergency contact: Primary Care Provider and Customer Facilities Supervisor Call non-emergency contact if: your symptoms worsen and your pain is worsening Follow-up/Referrals: Ilir Qureshi MD [Primary Care Provider] - 02/14/19 1:00 pm (Please, follow up with Dr. Qureshi on SundayFebruary 14 at 1:00 pm. *If you need to change this appointment, call the office at [phone].) Shyanne Stern PA-C [Physician Supervisor [employer]] - 02/27/19 2:45 pm (Please, follow up at [facility], in [facility], with Shyanne Stern PA-C, on February 27 at 2:45 pm. *If you need to change or cancel this appointment, call the office at [phone].) Diet: Heart Healthy and Low Sodium (2gm) Addtl Attending Provider Instructions: You were admitted for a CHF exacerbation. We gave you medications to help get rid of fluid. Your weight improved to 333 lbs. This could be considered your dry weight and you should contact your PCP or heart doctor if you start gaining more weight. Please get your labs checked with your PCP on to be sure your kidney function is returning to normal. Pending Studies at Discharge: No Stand-Alone Forms: My [facility] Th[employer]ed, Smoking Cessation Medications and DC Order Prescriptions: Continued Humalog Mix 50-50 KwikPen 100 unit/mL (50-50) insulin pen 40 units SQ BID RF: 0 (DME) lancets [OneTouch Delica Plus Lancet] 30 gauge misc See Dose Instructions .ROUTE .MEDSUPPLY Qty: 400 RF: 3 (DME) OneTouch Verio strip See Dose Instructions .ROUTE .MEDSUPPLY Qty: 400 RF: 3 Trulicity 1.5 mg/0.5 mL pen injector 1.5 mg SQ WEEKLY Qty: 6 RF: 3 esomeprazole magnesium [Nexium] 20 mg capsule,delayed release(DR/EC) 20 mg PO BID RF: 0 torsemide 20 mg tablet 60 mg PO BID Qty: 60 RF: 1 aspirin [Aspirin Low Dose] 81 mg tablet,delayed release (DR/EC) 81 mg PO QAM RF: 0 nitroglycerin [Nitrostat] 0.4 mg Tablet, Sublingual 0.4 mg sublingual UD PRN (Reason: chest pain) Qty: 100 RF: 0 cholecalciferol (vitamin D3) [Vitamin D3] 1,000 unit capsule 2,000 units PO BID RF: 0 metoprolol succinate 200 mg capsule,sprinkle,ER 24hr 200 mg PO QPM Qty: 30 RF: 0 spironolactone [Aldactone] 25 mg tablet 25 mg PO QAM RF: 0 budesonide [Pulmicort] 0.25 mg/2 mL suspension for nebulization 0.25 mg NEB QAM RF: 0 potassium chloride [K-Tab] 20 mEq tablet extended release 20 meq PO QAM RF: 0 Entresto 97-103 mg tablet 1 tab PO QAM RF: 0 Discharge Orders: Discharge Order (Routine); Ordered 02/08/19 Ordered By: Mynor Hunt Admission Data Admit Date/Time: 02/06/19 06:15 Attending Provider: Mynor Hunt Admit Provider: Noé Jaquez Primary Care Provider: Ilir Qureshi Other Providers: Yuri Johns Other Interventions: Discharge Summary Assessment (RN) Last Done: 02/08/19 14:41 DC Date/Time DO NOT enter until pt leaves facility: 02/08/19 14:57
== END 2019-02-08 14:57 | disposition home or self-care (01) ==
LOC: ED 02:10 → 2S 02:10 → SUATTDRO 06:15 → 2S 07:51

== ENCOUNTER 2019-02-19 14:23 | Inpatient (IN) ==
[2019-02-19 15:13] LABS: Basophils # (auto) 0.01 K/uL (0-0.2); Basophils % (auto) 0.1 %; Eosinophils # (auto) 0.19 K/uL (0-0.5); Eosinophils % (auto) 2.4 %; Hemoglobin 14.1 g/dL (14.0-18.0); Immature Granulocytes # (auto) 0.02 K/uL (0.00-0.02); Immature Granulocytes % (auto) 0.2 %; Lymphocytes # (auto) 1.81 K/uL (1.2-3.4); Lymphocytes % (auto) 22.5 %; Mean Corpuscular Hgb Conc 32.8 g/dL (32-36); Mean Corpuscular Volume 88.5 fL (80-100); Mean Platelet Volume 10.1 fL (7.4-10.4); Monocytes # (auto) 0.72 K/uL (0.11-0.59); Monocytes % (auto) 8.9 %; Neutrophils % (auto) 65.9 %; Platelet Count 183 K/uL (130-400); RDW Coefficient of Variation 15.5 % (11.5-14.5); RDW Standard Deviation 50.2 fL (36.4-46.3); Red Blood Count 4.86 M/uL (4.7-6.1); White Blood Count 8.05 K/uL (4.8-10.8)
--- NOTE | 2019-02-19 15:13 | Emergency Department Note ---
ED Provider Note CHIEF COMPLAINT: Weight gain, shortness of breath HISTORY OF PRESENTING ILLNESS: This is a 43-year-old male with complicated past medical history including combined systolic and diastolic congestive heart failure, hypertension, cardiomyopathy, insulin-dependent type 2 diabetes, obstructive sleep apnea, and morbid obesity, who presents to the emergency department by private vehicle with his with complaint of increased shortness of breath and a 10 pound weight gain over the past 2 days, and a total of 25 pounds since his recent discharge from the hospital 1.5 weeks ago. He was recently admitted for 2 days for CHF exacerbation. The patient notes that he feels better when he is in the hospital and they are able to pull fluid off, but when he goes home the fluid comes right back and he does not know why this happens. He states he is taking all of his medications appropriately and is watching his fluid intake and also denies using any extra salt in his diet. He notes that his shortness of breath has been getting worse, and now he is unable to lie flat without being extremely short of breath. He is also unable to complete very simple tasks because of exertional shortness of breath. He denies any chest pain, palpitations, dizziness or syncope. He denies abdominal pain, back pain, nausea or vomiting, urinary symptoms, or unusual rash. He notes that he called his doctor's office today and was told to come to the ER to be admitted. REVIEW OF SYSTEMS: A complete 10 point review of systems was reviewed with the patient with pertinent positives and negatives as per history of present illness. All else were negative. PAST MEDICAL HISTORY: Cardiomyopathy, diastolic/systolic CHF, hypertension, insulin-dependent type II diabetes, MARIELENA SOCIAL HISTORY: Lives at home with family, he is a former smoker ALLERGIES: Reviewed in chart PHYSICAL EXAM: CONSTITUTIONAL: Pleasant and cooperative. Nontoxic-appearing and in no acute distress. Well appearing and well nourished. HEENT: Normocephalic, atraumatic. NECK: Supple, full active range of motion without discomfort. No cervical adenopathy. RESPIRATORY: Diminished throughout with fine bibasilar crackles, no wheezing, rhonchi or stridor. Equal expansion bilaterally. CARDIOVASCULAR: Regular rate and rhythm with no murmurs, rubs or gallops. Normal peripheral perfusion, 2+ distal pulses in all 4 extremities. Pitting edema bilateral lower extremities. GASTROINTESTINAL: Soft, nontender, distended obese abdomen. No palpable masses or HSM. Bowel sounds present in all quadrants. No CVA tenderness bilaterally. MUSCULOSKELETAL: Full range of motion of all joints without discomfort. INTEGUMENTARY: No rash or other significant dermatologic conditions noted. NEUROLOGIC: Alert and oriented X 4 with normal affect. Normal strength and sensation in all 4 extremities. Normal speech. ED COURSE AND MEDICAL DECISION MAKING: CC: Patient presenting with complaint of weight gain, shortness of breath DIFFERENTIAL DIAGNOSIS: Includes, but not limited to CHF exacerbation, ACS, pulmonary edema, pneumonia, pleural effusion, PE, poor compliance with medications, among others. INTERPRETATION OF LABS: No leukocytosis, no anemia, normal platelets, no significant electrolyte abnormalities, normal renal function, normal liver enzymes. Troponin negative. Slightly elevated pro-BNP. Coagulation factors within normal limits. IMAGING: XR chest 1V portable CLINICAL HISTORY: Dyspnea, wt gain, hx chf pain. Nausea. COMPARISON STUDY: 02/06/2019 FINDINGS: Moderate cardiac enlargement. Lungs are clear. Normal pulmonary vasculature. Diaphragms are smooth. IMPRESSION: Cardiomegaly. Otherwise negative study. EKG: Shows normal sinus rhythm with a rate of 95 bpm, prolonged QT, T wave inversions in the lateral leads, no ectopy, increased ventricular rate by 39 bpm, no other significant changes when compared to previous EKG on 02/08/2019 by my interpretation. MEDICATION RECONCILIATION: I attest that I have personally reviewed the patient's current medication list. INITIAL VITAL SIGNS REVIEW: I reviewed the patient's initial vital signs and interpret them as follows: T: Afebrile; BP: Hypertensive; HR: Mildly tachycardic; RR: Within normal limits; Pulse Ox: Within normal limits on room air. Blood pressure screening: The patient was found to have an elevated blood pressure and was referred to the inpatient team for further management. MDM SUMMARY: Patient was evaluated at bedside, history and physical exam performed. Patient is alert and oriented, in no acute distress, resting calmly on the stretcher. He is not in any significant respiratory distress, not hypoxic on room air. Lungs are diminished throughout with fine crackles in the bases. He has bilateral lower extremity edema, no calf tenderness. He denies any chest pain. Review of the patient's chart noting his recent visit to his PCP 2 days ago, noting that he had a 14 pound weight gain since his discharge on 02/08. His weight today demonstrates an additional 4 pound weight gain in the past 2 days. Orders were placed at bedside for labs, EKG, chest x-ray to evaluate for ca rdiopulmonary disease. Patient discussed with Dr. Cintron, who agrees with my assessment, plan, and di sposition. Labs and imaging reviewed as above, pro-BNP is mildly elevated, but troponin is negative. Chest x-ray did not show any significant pulmonary edema. I spoke with Dr. Lee, [facility], regarding the concern for CHF exacerbation/fluid overload and that the patient was sent for admission by his PCP. She agreed to evaluate the patient for admission and will determine needs for diuretics and antihypertensives. The patient and his were updated on all results and plan for admission, they verbalized understanding and were agreeable to this plan. Patient was stable at time of admission. The chart was completed utilizing [employer] Speech voice recognition software. G rammatical errors, random word insertions, pronoun errors, and incomplete sentences are an occasional consequence of this system due to software limitations, ambient noise, and hardware issues. Any formal questions or concerns about the content, text, or information contained within the body of this dictation should be directly addressed to the nurse practitioner for clarification. Impression & Plan Acute on chronic combined systolic and diastolic CHF (congestive heart failure), Fluid overload, BRISCOE (dyspnea on exertion), Orthopnea Past Med/Surg History Social History Preferred Language: Kuwaiti Communication Ability: Effective Visual Impairment: No Limitations Hearing Ability: Normal Unload Associate Required: No Beliefs That Will Affect Care: None marital status: Current Living Situation: Spouse current occupational status: unemployed Other Information That Helps Us Care for You: No Feels Safe at Home: Yes Safety Concerns: Feels Safe At This Time Smoking Status: Former smoker Tobacco Type: cigarettes ; Age Started Using Tobacco: 14 ; Age Quit Using Tobacco: 18 ; Do You Dip or Chew Tobacco: No ; Second Hand Exposure: No ; Tobacco Cessation Education Requested by Patient: No Hx Alcohol Use: No Hx Substance Use: No Childhood Exposure to Second-Hand Smoke: Yes Dental Care, Regularly: Yes Physical Activity Frequency: Does not Exercise Results & Data Vital Signs Vital Signs - 24 hr 02/19/19 14:25 02/19/19 14:58 02/19/19 14:59 Temperature 36.3 C L Temperature Source Oral Pulse Rate 99 H Pulse Rate from SpO2 Sensor Pulse Rhythm Regular Pulse Strength Normal Respiratory Rate 16 Respiratory Effort / Characteristics Non-Labored Respiratory Depth Normal Respiratory Pattern Regular Blood Pressure 195/34 H Blood Pressure Mean 87 Blood Pressure Position Sitting Pulse Oximetry 97 97 Oxygen Delivery Method Room Air Room Air Room Air Sepsis Recent Fever Within 48 Hours No Sepsis Action Taken by Nursing No Action Required 02/19/19 15:00 02/19/19 15:09 02/19/19 15:10 Temperature Temperature Source Pulse Rate 105 H 97 H 96 H Pulse Rate from SpO2 Sensor 100 H 96 H 96 H Pulse Rhythm Pulse Strength Respiratory Rate 22 25 H 20 Respiratory Effort / Characteristics Respiratory Depth Respiratory Pattern Blood Pressure 178/120 H Blood Pressure Mean 129 Blood Pressure Position Pulse Oximetry 97 97 98 Oxygen Delivery Method Room Air Room Air Room Air Sepsis Recent Fever Within 48 Hours Sepsis Action Taken by Nursing 02/19/19 15:20 Temperature Temperature Source Pulse Rate 102 H Pulse Rate from SpO2 Sensor 101 H Pulse Rhythm Pulse Strength Respiratory Rate 17 Respiratory Effort / Characteristics Respiratory Depth Respiratory Pattern Blood Pressure Blood Pressure Mean Blood Pressure Position Pulse Oximetry 98 Oxygen Delivery Method Room Air Sepsis Recent Fever Within 48 Hours Sepsis Action Taken by Nursing Laboratory Data Result diagrams: 02/19/19 15:03 02/19/19 15:03 Lab Results 02/19/19 02/19/19 02/19/19 Range/Units 15:03 15:03 15:03 WBC 8.05 (4.8-10.8) K/uL RBC 4.86 (4.7-6.1) M/uL Hgb 14.1 (14.0-18.0) g/dL Hct 43.0 (42-52) % MCV 88.5 (80-100) fL MCH 29.0 (25-34) pg MCHC 32.8 (32-36) g/dL RDW Std Deviation 50.2 H (36.4-46.3) fL RDW Coeff of Zoltan 15.5 H (11.5-14.5) % Plt Count 183 (130-400) K/uL MPV 10.1 (7.4-10.4) fL Immature Gran % (Auto) 0.2 % Neut % (Auto) 65.9 % Lymph % (Auto) 22.5 % [place] % (Auto) 8.9 % Eos % (Auto) 2.4 % Baso % (Auto) 0.1 % Immature Gran # (Auto) 0.02 (0.00-0.02) K/uL Neut # (Auto) 5.30 (1.4-6.5) K/uL Lymph # (Auto) 1.81 (1.2-3.4) K/uL [place] # (Auto) 0.72 H (0.11-0.59) K/uL Eos # (Auto) 0.19 (0-0.5) K/uL Baso # (Auto) 0.01 (0-0.2) K/uL PT 10.3 (9.0-12.0) Seconds INR 1.0 (0.9-1.1) APTT 26.1 (21.0-31.0) Seconds PTT Ratio 1.0 Sodium 142 (136-145) mmol/L Potassium 4.0 (3.5-5.1) mmol/L Chloride 113 H (98-107) mmol/L Carbon Dioxide 25 (21-32) mmol/L Anion Gap 4.0 (3-11) BUN 9 D (7-18) mg/dl Creatinine 0.90 (0.6-1.4) mg/dl Est Cr Clr Drug Dosing 156.4 ml/min Est GFR ( Amer) 121.7 Est GFR (Non-Af Amer) 105.0 BUN/Creatinine Ratio 10.5 (10-20) Glucose 114 H (70-99) mg/dl Calcium 8.9 (8.5-10.1) mg/dl Total Bilirubin 0.3 (0.2-1) mg/dl AST 11 L (15-37) U/L ALT 17 (12-78) U/L Alkaline Phosphatase 82 (45-117) U/L Troponin I < 0.015 (0-0.045) ng/ml NT-Pro-B Natriuret Pep 626 H (0-450) pg/ml Total Protein 7.2 (6.4-8.2) gm/dl Albumin 3.3 L (3.4-5.0) gm/dl Globulin 3.9 (2.5-4.0) gm/dl Albumin/Globulin Ratio 0.8 L (0.9-2) TSH (0.300-4.500) uIu/ml 01/08/20 Range/Units 15:03 WBC (4.8-10.8) K/uL RBC (4.7-6.1) M/uL Hgb (14.0-18.0) g/dL Hct (42-52) % MCV (80-100) fL MCH (25-34) pg MCHC (32-36) g/dL RDW Std Deviation (36.4-46.3) fL RDW Coeff of Zoltan (11.5-14.5) % Plt Count (130-400) K/uL MPV (7.4-10.4) fL Immature Gran % (Auto) % Neut % (Auto) % Lymph % (Auto) % [place] % (Auto) % Eos % (Auto) % Baso % (Auto) % Immature Gran # (Auto) (0.00-0.02) K/uL Neut # (Auto) (1.4-6.5) K/uL Lymph # (Auto) (1.2-3.4) K/uL [place] # (Auto) (0.11-0.59) K/uL Eos # (Auto) (0-0.5) K/uL Baso # (Auto) (0-0.2) K/uL PT (9.0-12.0) Seconds INR (0.9-1.1) APTT (21.0-31.0) Seconds PTT Ratio Sodium (136-145) mmol/L Potassium (3.5-5.1) mmol/L Chloride (98-107) mmol/L Carbon Dioxide (21-32) mmol/L Anion Gap (3-11) BUN (7-18) mg/dl Creatinine (0.6-1.4) mg/dl Est Cr Clr Drug Dosing ml/min Est GFR ( Amer) Est GFR (Non-Af Amer) BUN/Creatinine Ratio (10-20) Glucose (70-99) mg/dl Calcium (8.5-10.1) mg/dl Total Bilirubin (0.2-1) mg/dl AST (15-37) U/L ALT (12-78) U/L Alkaline Phosphatase (45-117) U/L Troponin I (0-0.045) ng/ml NT-Pro-B Natriuret Pep (0-450) pg/ml Total Protein (6.4-8.2) gm/dl Albumin (3.4-5.0) gm/dl Globulin (2.5-4.0) gm/dl Albumin/Globulin Ratio (0.9-2) TSH 1.480 (0.300-4.500) uIu/ml Administered Medications Aspirin (Ecotrin Ectab) 81 mg PO QAM [facility] Stop: 03/21/19 16:32 Last Admin: 02/19/19 17:25 Dose: 81 mg Documented by: [id number] Discharge Plan Visit Data *Final* Discharge Date/Time: 02/19/19 16:11 Chief Complaint: Shortness of Breath/Dyspnea Stated Complaint: TAKING ON FLUID - TO BE ADMITTED BY DR QURESHI ED Provider: Marv Cintron ED Midlevel Provider: Carmen Clarke Discharge Problem: Acute on chronic combined systolic and diastolic CHF (congestive heart failure), Fluid overload, BRISCOE (dyspnea on exertion), Orthopnea Patient Disposition: Admitted As Inpatient Discharge Instructions Interventions: ED Discharge Assessment Last Done: 02/19/19 16:11 Discharge Problem: Fluid overload Qualifiers: Hypervolemia type: unspecified Qualified Code(s): E87.70 - Fluid overload, unspecified
--- NOTE | 2019-02-19 15:15 | XRay Report ---
XR chest 1V portable CLINICAL HISTORY: Dyspnea, wt gain, hx chf pain. Nausea. COMPARISON STUDY: 02/06/2019 FINDINGS: Moderate cardiac enlargement. Lungs are clear. Normal pulmonary vasculature. Diaphragms are smooth. IMPRESSION: Cardiomegaly. Otherwise negative study. ACT 112: Negative or not required by law. The above report was generated using voice recognition software. It may contain grammatical, syntax or spelling errors. Electronically signed by: Cleveland Concepcion M.D. 02/19/2019 3:13 PM
[2019-02-19 15:29] LABS: Partial Thromboplastin Time 26.1 Seconds (21.0-31.0); Prothrombin Time 10.3 Seconds (9.0-12.0)
--- NOTE | 2019-02-19 15:36 | Electrocardiogram Report ---
Test Reason : Blood Pressure : / mmHG Vent. Rate : 095 BPM Atrial Rate : 095 BPM P-R Int : 156 ms QRS Dur : 108 ms QT Int : 384 ms P-R-T Axes : 047 -08 088 degrees QTc Int : 482 ms Normal sinus rhythm Possible Left atrial enlargement Prolonged QT Abnormal ECG When compared with ECG of 08-FEB-2019 06:33, Vent. rate has increased BY 39 BPM T wave inversion less evident in Lateral leads Confirmed by Rodney Cary ([id number]) on 02/19/2019 3:36:27 PM Referred By: Confirmed By:Rodney Cary
[2019-02-19 15:44] LABS: Alanine Aminotransferase 17 U/L (12-78); Albumin Globulin Ratio 0.8 (0.9-2); Albumin Level 3.3 gm/dl (3.4-5.0); Alkaline Phosphatase 82 U/L (45-117); Aspartate Aminotransferase 11 U/L (15-37); BUN Creatinine Ratio 10.5 (10-20); Bilirubin,Total 0.3 mg/dl (0.2-1); Blood Urea Nitrogen 9 mg/dl (7-18); Calcium 8.9 mg/dl (8.5-10.1); Carbon Dioxide 25 mmol/L (21-32); Chloride 113 mmol/L (98-107); Creatinine Clr Calc Pharmacy 156.4 ml/min; Est GFR (African American) 121.7; Globulin 3.9 gm/dl (2.5-4.0); Glucose 114 mg/dl (70-99); NT Pro B Type Natriuretic Pept 626 pg/ml (0-450); Sodium 142 mmol/L (136-145); Total Protein 7.2 gm/dl (6.4-8.2); Troponin I < 0.015 ng/ml (0-0.045)
--- NOTE | 2019-02-19 16:14 | History & Physical Report ---
Date of Service February 19, 2019 Assessment & Plan (1) Fluid overload: Admit PCU on telemetry for observation. Vital signs every 4 hours Strict in and out Daily weight Restricted free water p.o. to 1200 mils per day Low-sodium diet Started furosemide 40 mg IV twice daily, titrate up as tolerated. Expected daily negative net output should be 1.5 L. Continue monitoring and replenish electrolytes. DVT prophylaxis Lovenox 40 mg subcu every 24 Continue aspirin 81 mg p.o. every morning, continue sacubitril/valsartan/valsartan 49/51 mg 2 tablets p.o. every morning, continue Spironolactone 25 mg p.o. every morning, continue potassium chloride 40 mg p.o. every morning. Continue metoprolol succinate 200 mg p.o. every afternoon. Patient is full code Present on Admission?: Yes (2) BRISCOE (dyspnea on exertion): As the above Present on Admission?: Yes (3) Orthopnea: This is the same management as the above. Present on Admission?: Yes (4) Hypertension: Continue monitoring blood pressure every 4 hours. Continue home medicine sacubitril/valsartan 49/51 mg 2 tablets p.o. every morning. Continue metoprolol succinate 200 mg p.o. every afternoon Continue Spironolactone 25 mg p.o. every morning Present on Admission?: Yes (5) CHF (congestive heart failure): Patient is in mild acute exacerbation of CHF in comparison with his other episodes of acute CHF exacerbation. Continue monitoring BNP Daily weight Strict in and out Restrict free p.o. fluids Low-sodium diet Continue above-mentioned medicines Spironolactone, metoprolol, sacubitril/valsartan Present on Admission?: Yes History of Present Illness Chief Complaint: Patient is a 43 years old male with past medical history of combined systolic and diastolic congestive heart failure, hypertension, cardiomyopathy, diabetes mellitus type 2, obstructive sleep apnea with CPAP, morbid obesity, who presents to the emergency room with a complaint of shortness of breath for the past several days, gaining a 10 pounds weight over 2 days, of total 25 pounds since the recent discharge from the hospital approximately 10 days ago. Patient was recently admitted to the hospital for CHF exacerbation. Patient reports when he was in the hospital he had brisk diuresis and he felt much better when fluid was off but unfortunately as soon as he went home he again again 25pounds fairly quickly. Patient reports that he takes his medication as prescribed and that he avoids salt in his diet. Patient denies fever, chills, chest pain, shortness of breath, palpitations, syncope or near syncope. EKG shows left atrial enlargement, prolonged QT interval. Labs are reviewed: WBC is 8.05, hemoglobin 14.1, hematocrit 43, platelets 183, PT 10.3, INR 1, APTT 26.1, arterial blood gas VBG 7.48, PCO2 33, PO2 71, bicarb 24, sodium 142, potassium 4, chloride 113, anion gap 4, BUN 9, creatinine 0.9, GFR 105, glucose 114, hemoglobin A1c pending, calcium 8.9, AST 11, ALT 17, troponin 0.015, BNP 626, TSH 1.48. Chest x-ray shows cardiomegaly and otherwise negative study. Decision was made to admit patient to PCU on telemetry for observation and to treat acute congestive heart failure. Primary Care Provider: Ilir Qureshi MD Allergies Allergy/AdvReac Type Severity Reaction Status Date / Time ceftriaxone Allergy Severe SHORTNESS Verified 02/19/19 15:24 OF BREATH lidocaine Allergy Severe SHORTNESS Verified 02/19/19 15:24 OF BREATH, diaphoretic, hives procaine Allergy Severe SHORTNESS Verified 02/19/19 15:24 OF BREATH, diaphoretic, hives amoxicillin Allergy Intermediate HIVES/FACIAL Verified 02/19/19 15:24 SWELLING clavulanic acid Allergy Intermediate HIVES/FACIAL Verified 02/19/19 15:24 SWELLING lisinopril Allergy Intermediate HIVES Verified 02/19/19 15:24 albuterol Allergy Mild proair Verified 02/19/19 15:24 "trouble taking breaths" acetaminophen AdvReac Mild NAUSEA Verified 02/19/19 15:24 Home Medications Home Medications Medication Instructions Recorded Confirmed Type insulin lispro protamine-lispro 40 units SQ BID ml 08/28/18 02/19/19 History 100 unit/mL (50-50) subcutaneous pen esomeprazole magnesium 20 mg 20 mg PO BID cap 09/05/18 02/19/19 History capsule,delayed release aspirin 81 mg tablet,delayed 81 mg PO QAM 09/17/18 02/19/19 History release cholecalciferol (vitamin D3) 25 2,000 units PO BID cap 09/17/18 02/19/19 History mcg (1,000 unit) capsule torsemide 20 mg tablet 60 mg PO BID #60 tab 11/14/18 02/19/19 Rx nitroglycerin [Nitrostat] 0.4 mg SUBLINGUAL UD PRN #100 tab 12/11/18 02/19/19 Rx OneTouch Delica Plus Lancet 30 #400 ea NS 12/23/18 02/19/19 Rx gauge OneTouch Verio #400 ea NS 12/23/18 02/19/19 Rx Trulicity 1.5 mg/0.5 mL 1.5 mg SQ WEEKLY #6 ml NS 12/31/18 02/19/19 Rx subcutaneous pen injector metoprolol succinate 200 mg PO QPM #30 ea 01/19/19 02/19/19 Rx Entresto 1 tab PO QAM 01/26/19 02/19/19 History budesonide [Pulmicort] 0.25 mg NEB UD PRN 01/26/19 02/19/19 History potassium chloride [K-Tab] 20 meq PO QAM 01/26/19 02/19/19 History spironolactone [Aldactone] 25 mg PO QAM 01/26/19 02/19/19 History Past Med/Surg History Medical History Acquired claw toe of left foot (Acute) Acquired claw toe of right foot (Acute) Acute on chronic systolic (congestive) heart failure (Chronic) Back pain (Resolved) Bilateral knee pain (Acute) Carpal tunnel syndrome (Acute) Cluster headache (Acute) Cognitive impairment 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 Difficult to manage. Integrated into heart failure clinic. Frequent admissions for heart failure exacerbations. Echo (05/31) EF=25-30% with mod to severe global hypokinesis, basal kelsi-septal akinetic wall, LVH, RVSP elevated at 30-40mmHg, and mod dilated ascending aorta. Managed medically with ASA + BB + ARB/Neprilysin inhibitor (Entresto) + high dose furosemide (160mg BID) + metolazone (3x weekly). Considering ICD given EF. COPD (chronic obstructive pulmonary disease) (Chronic) Depression Depression with anxiety (Acute) Diabetes mellitus with diabetic polyneuropathy (Acute) Diabetes mellitus, type II (Chronic) DM II (diabetes mellitus, type II), controlled Dyslipidemia (Acute) Fatty liver GERD (gastroesophageal reflux disease) GERD (gastroesophageal reflux disease) Hemoptysis HTN (hypertension) Hypertension (Chronic) Learning disability (Resolved) Lung nodule (Acute) Medical non-compliance Mixed hearing loss of left ear (Acute) Morbid obesity (Chronic) BMI> 50 Morbid obesity with BMI of 50.0-59.9, adult Nonischemic cardiomyopathy EF 30-35% Nonischemic cardiomyopathy Obstructive sleep apnea (Chronic) Polysomnography (07/28) with severe mixed osbtructive and central apnea treated with Bipap 27/11 MARIELENA (obstructive sleep apnea) Does not comply with CPAP Peripheral neuropathy (Chronic) 2/2 DM type II. Located on the feet bilaterally. Not requiring medication. Followed by podiatry Right-sided sensorineural hearing loss (Acute) Sinus bradycardia Sinus tachycardia (Acute) TMJ (dislocation of temporomandibular joint) (Acute) Umbilical hernia (Acute) Vitamin D insufficiency Previously deficient, taking Vit D supplementation Surgical History History of carpal tunnel surgery History of cholecystectomy S/P tonsillectomy Family History Father , age 57 of an [place]. Heart disease Myocardial infarction Mother , age 67 of a ruptured neck vessel Sudden Other Depression Lung disease No pertinent family history Social History Preferred Language: Maori Communication Ability: Effective Visual Impairment: No Limitations Hearing Ability: Normal Non Destructive Testing Scientist Required: No Beliefs That Will Affect Care: None marital status: Current Living Situation: Spouse current occupational status: unemployed Other Information That Helps Us Care for You: No Feels Safe at Home: Yes Safety Concerns: Feels Safe At This Time Smoking Status: Former smoker Tobacco Type: cigarettes ; Age Started Using Tobacco: 14 ; Age Quit Using Tobacco: 18 ; Do You Dip or Chew Tobacco: No ; Second Hand Exposure: No ; Tobacco Cessation Education Requested by Patient: No Hx Alcohol Use: No Hx Substance Use: No Childhood Exposure to Second-Hand Smoke: Yes Dental Care, Regularly: Yes Physical Activity Frequency: Does not Exercise Review of Systems Review of Systems: All systems reviewed & are unremarkable except as noted in HPI & below Physical Exam Constitutional: WD/WN, vitals as above well developed and + morbidly obese Eyes: PERRL, conjunctivae normal, anicteric sclerae ENMT: external ear and nose normal, oropharynx normal Neck: trachea midline, no thyromegaly Respiratory: normal respiratory effort Auscultation: + diminished lung sounds and + wheezes Cardiovascular: RRR, no murmur, no edema Chest (Breasts): normal inspection/palpation of breasts Gastrointestinal (Abdomen): normal bowel sounds, soft, nontender, no hepatosplenomegaly Musculoskeletal: no cyanosis or clubbing, extremities motor strength 5/5 Skin: no rashes, warm and dry Genitourinary: no testicular masses, no penis abnormality Lymphatic: no cervical or axillary lymphadenopathy Results & Data Vital Signs (Past 12 Hours) Vital Signs Temp Pulse Resp BP Pulse Ox 02/19/19 16:01 91 H 18 97 02/19/19 16:00 92 H 24 169/124 H 95 02/19/19 15:50 98 H 21 96 02/19/19 15:40 96 H 16 98 02/19/19 15:31 93 H 22 175/97 H 97 02/19/19 15:30 91 H 18 92 02/19/19 15:20 102 H 17 98 02/19/19 15:10 96 H 20 98 02/19/19 15:09 97 H 25 H 97 02/19/19 15:00 105 H 22 178/120 H 97 02/19/19 14:58 97 02/19/19 14:25 36.3 C L 99 H 16 195/34 H 97 Code Status & VTE Plan Code Status Full code VTE Prophylaxis Plan VTE Prophylaxis will be ordered: Yes PG Care Time/CCT Total # of Minutes Spent Total Time Spent with Patient: Total time spent is greater than 50% in coordination of care (as documented) at patient's floor/unit and/or counseling patient: (1) CHF (congestive heart failure) Heart failure chronicity: acute Heart failure type: unspecified Qualified Code(s): I50.9 - Heart failure, unspecified (2) Hypertension Hypertension type: unspecified Qualified Code(s): I10 - Essential (primary) hypertension (3) Fluid overload Hypervolemia type: unspecified Qualified Code(s): E87.70 - Fluid overload, unspecified
[2019-02-19] MEDS ORDERED: ALUMINUM/MAGNESIUM SUSP 30 ML UDC PO PRN (16:33)
[2019-02-19] MEDS ORDERED: MAGNESIUM HYDROXIDE SUSP 30 ML UDC PO PRN (16:33)
[2019-02-19] MEDS ORDERED: ACETAMINOPHEN 325 MG TAB PO PRN (16:33)
[2019-02-19] MEDS ORDERED: POLYETHYLENE (MIRALAX) 17 GM PACK PO PRN (16:33)
[2019-02-19] MEDS ORDERED: NITROGLYCERIN SL 0.4 MG/TAB TAB SL PRN (16:33)
[2019-02-19] MEDS: ASPIRIN 81 MG ECTAB PO SCH (17:25)
[2019-02-19] MEDS ORDERED: DEXTROSE 50% 50 ML SYRINGE IV PRN (20:55)
[2019-02-19] MEDS ORDERED: CARBOHYDRATES FOR HYPOGLYCEMIA PO PRN (20:55)
[2019-02-19] MEDS ORDERED: GLUCOSE 10 TABS/TUBE PO PRN (20:55)
[2019-02-19] MEDS ORDERED: GLUCOSE 40% GEL 15 GM TUBE PO PRN (20:55)
[2019-02-19] MEDS ORDERED: GLUCAGON FOR INJ 1 MG VIAL SQ PRN (20:55)
[2019-02-19] MEDS ORDERED: FUROSEMIDE 40 MG in SYRINGE 0 ML IV SCH (21:00)
[2019-02-19] MEDS ORDERED: FUROSEMIDE 40 MG/4 ML VIAL IV SCH (21:00)
[2019-02-19] MEDS ORDERED: PHARMACY GLYCEMIC MGMT CONSULT PRN (21:09)
[2019-02-19] MEDS: ENOXAPARIN INJ 40 MG/0.4 ML SYR SQ SCH (21:14)
[2019-02-19] MEDS: METOPROLOL SUCC 50MG EXT REL TAB PO SCH (21:15)
[2019-02-19] MEDS: CHOLECALCIFEROL 1,000 UNITS TAB PO SCH (21:16)
[2019-02-19] MEDS: PANTOprazole 40 MG TAB PO SCH (21:16)
[2019-02-20 05:56] LABS: Estimated Average Glucose 154 mg/dl
[2019-02-20 06:17] LABS: Basophils # (auto) 0.01 K/uL (0-0.2); Basophils % (auto) 0.1 %; Eosinophils # (auto) 0.21 K/uL (0-0.5); Hematocrit (blood only) 41.7 % (42-52); Hemoglobin 13.7 g/dL (14.0-18.0); Immature Granulocytes # (auto) 0.02 K/uL (0.00-0.02); Immature Granulocytes % (auto) 0.3 %; Lymphocytes # (auto) 2.13 K/uL (1.2-3.4); Lymphocytes % (auto) 30.4 %; Mean Corpuscular Hemoglobin 28.3 pg (25-34); Mean Corpuscular Hgb Conc 32.9 g/dL (32-36); Mean Corpuscular Volume 86.2 fL (80-100); Mean Platelet Volume 10.5 fL (7.4-10.4); Monocytes # (auto) 0.59 K/uL (0.11-0.59); Monocytes % (auto) 8.4 %; Neutrophils # (auto) 4.05 K/uL (1.4-6.5); Neutrophils % (auto) 57.8 %; Platelet Count 168 K/uL (130-400); RDW Coefficient of Variation 15.5 % (11.5-14.5); RDW Standard Deviation 48.8 fL (36.4-46.3); Red Blood Count 4.84 M/uL (4.7-6.1); White Blood Count 7.01 K/uL (4.8-10.8)
[2019-02-20 06:56] LABS: BUN Creatinine Ratio 9.7 (10-20); Calcium 8.1 mg/dl (8.5-10.1); Creatinine Clr Calc Pharmacy 141.4 ml/min; Est GFR (African American) 108.4; Est GFR (Non-African American) 93.6; Potassium 3.9 mmol/L (3.5-5.1)
[2019-02-20 07:01] LABS: Albumin Globulin Ratio 0.8 (0.9-2); Bilirubin,Total 0.4 mg/dl (0.2-1); Globulin 3.7 gm/dl (2.5-4.0); Total Protein 6.7 gm/dl (6.4-8.2)
[2019-02-20] MEDS: BUDESONIDE 0.25 MG/2 ML INH SCH (07:05)
[2019-02-20] MEDS ORDERED: FUROSEMIDE 40 MG in SYRINGE 0 ML IV ONE (07:44)
[2019-02-20] MEDS: INSULIN ASPART 100 UNITS/ML 3 ML PEN SC SCH ×4 (07:51→21:00)
[2019-02-20] MEDS: SACUBITRIL-VALSARTAN 49/51 MG TAB PO SCH (07:52)
[2019-02-20] MEDS: PANTOprazole 40 MG TAB PO SCH ×2 (07:52→21:02)
[2019-02-20] MEDS: SPIRONOLACTONE 25 MG TAB PO SCH (07:52)
[2019-02-20] MEDS: POTASSIUM CHLORIDE 20 MEQ TABCR PO SCH (07:52)
[2019-02-20] MEDS: CHOLECALCIFEROL 1,000 UNITS TAB PO SCH ×2 (07:52→21:02)
[2019-02-20] MEDS: ASPIRIN 81 MG ECTAB PO SCH (07:53)
[2019-02-20 08:10] LABS: Estimated Average Glucose 154 mg/dl
[2019-02-20] MEDS: INSULIN HUMAN NPH SC SCH ×2 (09:34→17:12)
[2019-02-20] MEDS ORDERED: MoRPHine SULFATE 4 MG/ML 1 ML CARP\\VIAL IV PRN (10:23)
[2019-02-20] MEDS ORDERED: MoRPHine SULFATE 2 MG/ML CARP IV PRN (10:23)
--- NOTE | 2019-02-20 11:50 | Pharmacy Report ---
Pharmacy Glycemic Short Note 2 - Date of Service February 20, 2019 - Glycemic Short BSG Results (Last 24 hours): 02/19/19 02/19/19 02/20/19 15:03 21:00 05:48 Glucose 114 H 113 H POC Glucose 106 H 02/20/19 02/20/19 07:46 11:14 Glucose POC Glucose 119 H 107 H OUTPATIENT ANTIDIABETIC REGIMEN: * Dulaglutide 1.5mg weekly * Humalog mix 50/50 40 units BID w/ meals * A1c = 7% ASSESSMENT: * Type 2 diabetic admitted with ADHF, volume overload * Patient has been followed on prior hospitalizations by Glycemic Service. Will utilize a regimen that has performed well on past admissions when ordered the same diet. Split/mixed insulin regimens are difficult to titrate and often lead to hypoglycemia in hospitalized patients with changes in ordered diets. PLAN FOR INPATIENT GLYCEMIC CONTROL: * Hold outpatient oral diabetes medications (dulaglutide, humalog mix) * Basal insulin * NPH 12 units SQ BID w/ breakfast + dinner * Bolus insulin * NovoLog per scale ACHS or Q6hrs while NPO * Goal Range: Low 110 mg/dL - High 140 mg/dL * Correction Factor: 25 mg/dL/unit * Nutritional / Prandial insulin per carb ratio of 1 unit per 9 grams CHO consumed PLAN FOR DISCHARGE: * to be determined
[2019-02-20] MEDS: FUROSEMIDE 40 MG in SYRINGE 0 ML IV SCH ×2 (13:35→21:46)
--- NOTE | 2019-02-20 14:50 | Hospitalist Progress Note ---
Date of Service February 20, 2019 Assessment & Plan (1) Acute on chronic combined systolic and diastolic CHF (congestive heart failure): likely due to noncompliance with salt and fluid restriction eats whatever he wants, drinks fluids (iced tea, water, soda) all day long due to constant thirst he says he is compliant with diuretics has gained 15-20 lbs since last discharge from hospital responding well to Lasix, will increase to Lasix 40mg IV q8 Cr is 0.99 and K is stable no need to repeat echocardiogram at this time will not consult cardiology since admission is due to his non-compliance, nothing that they would add will keep in hospital until he is euvolemic, monitor Cr every day unsure how to keep patient out of the hospital if he will not be compliant with fluid restriction will have long discussion with him tomorrow (2) Fluid overload: simply due to not following volume restriction (3) BRISCOE (dyspnea on exertion): due to pulmonary edema improving today (4) Orthopnea: due to acute heart failure (5) Hypertension: Continue home medicine sacubitril/valsartan 49/51 mg 2 tablets p.o. every morning. Continue metoprolol succinate 200 mg p.o. every afternoon Continue Spironolactone 25 mg p.o. every morning BP stable today (6) Diabetes mellitus, type II: Hb A1c is 7 continue basal and bolus insulin monitor for hypoglycemia (7) Obstructive sleep apnea: CPAP HS (8) Peripheral neuropathy: (9) Nonischemic cardiomyopathy: (10) Low back pain: ongoing issue, more on left side no injuries recently likely related to obesity and muscle strains in low back, pelvic girdle ideally would need to lose weight diuresis may help Subjective patient is breathing better, less edema today he is diuresing with Lasix IV, by his estimate several liters, has filled urinal several times he admits to eating a lot of salt, he drinks iced tea, water and diet soda at home does not really follow a fluid restriction, says he is thirsty "all the time" discussed that he needs to be on a fluid restriction with his heart failure he reports that he was at [place] recently and was hospitalized was told that he has a "hole in his heart" and they recommended fixing it at [place] he follows with [facility], used to follow with Corie Mazariegos with CHF clinic but he was non-compliant reviewed labs, Cr is 0.99, K 3.9, CBC normal Hb A1c is 7 reviewed prior records, EF is 30-35%, grade II diastolic dysfunction from echo from January 2019 no mention of ASD or PFO so not sure what he means by "hole in my heart" Review of Systems Review of Systems: All systems reviewed & are unremarkable except as noted in HPI & below Respiratory: + dyspnea on exertion; no cough and no dyspnea Cardiovascular: + edema (up to his thighs, around buttocks); no chest pain Physical Exam Constitutional: well developed, well nourished and + morbidly obese; no acute distress Eyes: PERRL, conjunctivae normal, anicteric sclerae ENMT: external ear and nose normal, oropharynx normal Neck: trachea midline, no thyromegaly Respiratory: normal respiratory effort; no respiratory distress and no cough Auscultation: + rales (bases) Cardiovascular: Rate/Rhythm: regular rate and regular rhythm Heart Sounds: normal S1 and normal S2; no murmur Vessels: + JVD Extremities: normal capillary refill and + edema Gastrointestinal (Abdomen): normal bowel sounds, soft, nontender, no hepatosplenomegaly Musculoskeletal: no cyanosis or clubbing, extremities motor strength 5/5 Skin: no rashes, warm and dry Neurologic: patellar DTR's 2+ bilat, sensation intact and PERRL, EOMI, accommodation nl, no face palsy, no dysarthria Psychiatric: A+Ox3, euthymic affect Lymphatic: no cervical or axillary lymphadenopathy Results & Data Vital Signs (Past 12 Hours) Vital Signs Temp Pulse Pulse Resp BP BP Pulse Ox 02/20/19 10:43 37.0 C 90 17 138/99 92 02/20/19 08:00 85 02/20/19 07:07 89 18 96 02/20/19 06:54 36.4 C L 90 16 151/113 H 94 02/20/19 03:38 36.7 C 96 H 18 149/100 H 96 Laboratory Results Laboratory Results - last 24 hr 02/19/19 02/19/19 02/19/19 15:03 15:03 15:03 WBC 8.05 RBC 4.86 Hgb 14.1 Hct 43.0 MCV 88.5 MCH 29.0 MCHC 32.8 RDW Std Deviation 50.2 H RDW Coeff of Zoltan 15.5 H Plt Count 183 MPV 10.1 Immature Gran % (Auto) 0.2 Neut % (Auto) 65.9 Lymph % (Auto) 22.5 Clinch % (Auto) 8.9 Eos % (Auto) 2.4 Baso % (Auto) 0.1 Immature Gran # (Auto) 0.02 Neut # (Auto) 5.30 Lymph # (Auto) 1.81 Clinch # (Auto) 0.72 H Eos # (Auto) 0.19 Baso # (Auto) 0.01 PT 10.3 INR 1.0 APTT 26.1 PTT Ratio 1.0 Sodium 142 Potassium 4.0 Chloride 113 H Carbon Dioxide 25 Anion Gap 4.0 BUN 9 D Creatinine 0.90 Est Cr Clr Drug Dosing 156.4 Est GFR ( Amer) 121.7 Est GFR (Non-Af Amer) 105.0 BUN/Creatinine Ratio 10.5 Glucose 114 H POC Glucose Estimat Average Glucose Hemoglobin A1c Calcium 8.9 Total Bilirubin 0.3 AST 11 L ALT 17 Alkaline Phosphatase 82 Troponin I < 0.015 NT-Pro-B Natriuret Pep 626 H Total Protein 7.2 Albumin 3.3 L Globulin 3.9 Albumin/Globulin Ratio 0.8 L Triglycerides Cholesterol LDL Cholesterol, Calc VLDL Cholesterol, Calc HDL Cholesterol Cholesterol/HDL Ratio TSH 02/19/19 02/19/19 02/19/19 15:03 15:03 21:00 WBC RBC Hgb Hct MCV MCH MCHC RDW Std Deviation RDW Coeff of Zoltan Plt Count MPV Immature Gran % (Auto) Neut % (Auto) Lymph % (Auto) Clinch % (Auto) Eos % (Auto) Baso % (Auto) Immature Gran # (Auto) Neut # (Auto) Lymph # (Auto) Clinch # (Auto) Eos # (Auto) Baso # (Auto) PT INR APTT PTT Ratio Sodium Potassium Chloride Carbon Dioxide Anion Gap BUN Creatinine Est Cr Clr Drug Dosing Est GFR ( Amer) Est GFR (Non-Af Amer) BUN/Creatinine Ratio Glucose POC Glucose 106 H Estimat Average Glucose 154 Hemoglobin A1c 7.0 H Calcium Total Bilirubin AST ALT Alkaline Phosphatase Troponin I NT-Pro-B Natriuret Pep Total Protein Albumin Globulin Albumin/Globulin Ratio Triglycerides Cholesterol LDL Cholesterol, Calc VLDL Cholesterol, Calc HDL Cholesterol Cholesterol/HDL Ratio TSH 1.480 02/20/19 02/20/19 02/20/19 05:48 05:48 05:48 WBC 7.01 RBC 4.84 Hgb 13.7 L Hct 41.7 L MCV 86.2 MCH 28.3 MCHC 32.9 RDW Std Deviation 48.8 H RDW Coeff of Zoltan 15.5 H Plt Count 168 MPV 10.5 H Immature Gran % (Auto) 0.3 Neut % (Auto) 57.8 Lymph % (Auto) 30.4 Clinch % (Auto) 8.4 Eos % (Auto) 3.0 Baso % (Auto) 0.1 Immature Gran # (Auto) 0.02 Neut # (Auto) 4.05 Lymph # (Auto) 2.13 Clinch # (Auto) 0.59 Eos # (Auto) 0.21 Baso # (Auto) 0.01 PT INR APTT PTT Ratio Sodium 140 Potassium 3.9 Chloride 110 H Carbon Dioxide 24 Anion Gap 6.0 BUN 10 Creatinine 0.99 Est Cr Clr Drug Dosing 141.4 Est GFR ( Amer) 108.4 Est GFR (Non-Af Amer) 93.6 BUN/Creatinine Ratio 9.7 L Glucose 113 H POC Glucose Estimat Average Glucose 154 Hemoglobin A1c 7.0 H Calcium 8.1 L Total Bilirubin 0.4 AST 13 L ALT 17 Alkaline Phosphatase 75 Troponin I NT-Pro-B Natriuret Pep 1505 H Total Protein 6.7 Albumin 3.0 L Globulin 3.7 Albumin/Globulin Ratio 0.8 L Triglycerides 169 H Cholesterol 119 LDL Cholesterol, Calc 52 VLDL Cholesterol, Calc 34 HDL Cholesterol 33 Cholesterol/HDL Ratio 4 TSH 02/20/19 02/20/19 07:46 11:14 WBC RBC Hgb Hct MCV MCH MCHC RDW Std Deviation RDW Coeff of Zoltan Plt Count MPV Immature Gran % (Auto) Neut % (Auto) Lymph % (Auto) Clinch % (Auto) Eos % (Auto) Baso % (Auto) Immature Gran # (Auto) Neut # (Auto) Lymph # (Auto) Clinch # (Auto) Eos # (Auto) Baso # (Auto) PT INR APTT PTT Ratio Sodium Potassium Chloride Carbon Dioxide Anion Gap BUN Creatinine Est Cr Clr Drug Dosing Est GFR ( Amer) Est GFR (Non-Af Amer) BUN/Creatinine Ratio Glucose POC Glucose 119 H 107 H Estimat Average Glucose Hemoglobin A1c Calcium Total Bilirubin AST ALT Alkaline Phosphatase Troponin I NT-Pro-B Natriuret Pep Total Protein Albumin Globulin Albumin/Globulin Ratio Triglycerides Cholesterol LDL Cholesterol, Calc VLDL Cholesterol, Calc HDL Cholesterol Cholesterol/HDL Ratio TSH Medications Administered Current Inpatient Medications Acetaminophen (Tylenol) 650 mg PO Q4H PRN PRN Reason: Pain or Fever Stop: 03/21/19 16:32 Last Admin: 02/20/19 07:55 Dose: 650 mg Documented by: Al Hydrox/Mg Hydrox/Simethicone (Maalox) 15 ml PO Q4H PRN PRN Reason: Dyspepsia Stop: 03/21/19 16:32 Aspirin (Ecotrin Ectab) [facility] [place] Stop: 03/21/19 16:32 Last Admin: 02/20/19 07:53 Dose: 81 mg Documented by: Budesonide (Pulmicort Respules) 0.25 mg INH [facility] Stop: 03/22/19 08:59 Last Admin: 02/20/19 07:05 Dose: 0.25 mg Documented by: Dextrose (Dextrose 50%) 25 - 50 ml IV UD PRN; Protocol PRN Reason: Hypoglycemia Protocol Stop: 03/21/19 20:54 Enoxaparin Sodium (Lovenox) 40 mg SQ Q24H [facility] Stop: 03/21/19 20:59 Last Admin: 02/19/19 21:14 Dose: 40 mg Documented by: Glucagon (Glucagen) 1 mg SQ UD PRN; Protocol PRN Reason: Hypoglycemia Protocol Stop: 03/21/19 20:54 Glucose (Dex4 Glucose) 4 - 8 tabs PO UD PRN; Protocol PRN Reason: Hypoglycemia Protocol Stop: 03/21/19 20:54 Glucose (Glucose 40%) 15 - 30 gm PO UD PRN; Protocol PRN Reason: Hypoglycemia Protocol Stop: 03/21/19 20:54 Furosemide 40 mg/ Syringe 4 mls @ 4 mls/min IV Q8 [facility] Stop: 03/22/19 13:59 Last Admin: 02/20/19 13:35 Dose: 4 mls/min Documented by: Insulin Aspart (Novolog Flexpen) 0 units SC ACHS [facility] Stop: 03/22/19 07:29 Last Admin: 02/20/19 12:12 Dose: 6 units Documented by: Insulin Human NPH (Novolin N Nph) 12 units SC BIDM [facility] Stop: 03/22/19 07:59 Last Admin: 02/20/19 09:34 Dose: 12 units Documented by: Magnesium Hydroxide (Milk Of Magnesia) 30 ml PO Q12H PRN PRN Reason: Constipation Stop: 03/21/19 16:32 Metoprolol Succinate (Toprol Xl) 200 mg PO QPM [facility] Stop: 03/21/19 20:59 Last Admin: 02/19/19 21:15 Dose: 200 mg Documented by: Miscellaneous (Carbohydrates For Hypoglycemia) 15 - 30 gm PO UD PRN PRN Reason: Hypoglycemia Protocol Stop: 03/21/19 20:54 Miscellaneous Information (Consult Glycemic Management Pharmacy) 1 ea N/A UD PRN; Protocol PRN Reason: Consult Stop: 03/21/19 21:08 Morphine Sulfate (Morphine Sulfate) 2 mg IV Q4H PRN PRN Reason: Pain Stop: 03/06/19 10:22 Morphine Sulfate (Morphine Sulfate) 4 mg IV Q4H PRN PRN Reason: Severe Pain Stop: 03/06/19 10:22 Nitroglycerin (Nitrostat) 0.4 mg SL UD PRN PRN Reason: chest pain Stop: 03/21/19 16:32 Pantoprazole Sodium (Protonix) 40 mg PO BID [facility]; Protocol Stop: 03/21/19 20:59 Last Admin: 02/20/19 07:52 Dose: 40 mg Documented by: Polyethylene Glycol (Miralax Powder Packet) 17 gm PO DAILY PRN PRN Reason: Constipation Stop: 03/21/19 16:32 Potassium Chloride (Klor-Con M20) 40 meq [facility] [place] Stop: 03/22/19 08:59 Last Admin: 02/20/19 07:52 Dose: 40 meq Documented by: Sacubitril/Valsartan (Entresto 49/51mg) 2 tab PO QAM [facility] Stop: 03/22/19 08:59 Last Admin: 02/20/19 07:52 Dose: 2 tab Documented by: Spironolactone (Aldactone) 25 mg PO QAM [facility] Stop: 03/22/19 08:59 Last Admin: 02/20/19 07:52 Dose: 25 mg Documented by: Vitamin D (Vitamin D3) 2,000 units PO BID [facility] Stop: 03/21/19 20:59 Last Admin: 02/20/19 07:52 Dose: 2,000 units Documented by: PG Care Time/CCT Total # of Minutes Spent Total Time Spent with Patient: Total time spent is greater than 50% in coordination of care (as documented) at patient's floor/unit and/or counseling patient: (1) Fluid overload Hypervolemia type: unspecified Qualified Code(s): E87.70 - Fluid overload, unspecified (2) Hypertension Hypertension type: unspecified Qualified Code(s): I10 - Essential (primary) hypertension (3) Diabetes mellitus, type II Diabetes mellitus shelter insulin use: with shelter use Diabetes mellitus complication status: with other specified complication Qualified Code(s): E11.69 - Type 2 diabetes mellitus with other specified complication; Z79.4 - FDC (current) use of insulin
[2019-02-20] MEDS: ENOXAPARIN INJ 40 MG/0.4 ML SYR SQ SCH (20:59)
[2019-02-20] MEDS: METOPROLOL SUCC 50MG EXT REL TAB PO SCH (21:01)
[2019-02-21 05:35] LABS: Basophils # (auto) 0.02 K/uL (0-0.2); Basophils % (auto) 0.2 %; Eosinophils # (auto) 0.18 K/uL (0-0.5); Eosinophils % (auto) 2.2 %; Hematocrit (blood only) 46.7 % (42-52); Hemoglobin 15.7 g/dL (14.0-18.0); Immature Granulocytes # (auto) 0.03 K/uL (0.00-0.02); Immature Granulocytes % (auto) 0.4 %; Lymphocytes # (auto) 2.36 K/uL (1.2-3.4); Lymphocytes % (auto) 28.7 %; Mean Corpuscular Hemoglobin 28.7 pg (25-34); Mean Corpuscular Hgb Conc 33.6 g/dL (32-36); Mean Corpuscular Volume 85.4 fL (80-100); Monocytes % (auto) 8.5 %; Neutrophils # (auto) 4.92 K/uL (1.4-6.5); Platelet Count 174 K/uL (130-400); RDW Coefficient of Variation 15.2 % (11.5-14.5); RDW Standard Deviation 47.4 fL (36.4-46.3); Red Blood Count 5.47 M/uL (4.7-6.1); White Blood Count 8.21 K/uL (4.8-10.8)
[2019-02-21] MEDS: FUROSEMIDE 40 MG in SYRINGE 0 ML IV SCH ×2 (05:47→13:25)
[2019-02-21 06:08] LABS: Albumin Level 3.2 gm/dl (3.4-5.0); Calcium 8.6 mg/dl (8.5-10.1); Creatinine Clr Calc Pharmacy 132.1 ml/min; Est GFR (African American) 99.8; Est GFR (Non-African American) 86.1; Potassium 3.5 mmol/L (3.5-5.1)
[2019-02-21 06:11] LABS: Albumin Globulin Ratio 0.8 (0.9-2); Bilirubin,Total 0.7 mg/dl (0.2-1); Globulin 4.2 gm/dl (2.5-4.0); Total Protein 7.4 gm/dl (6.4-8.2)
[2019-02-21] MEDS: BUDESONIDE 0.25 MG/2 ML INH SCH (07:05)
[2019-02-21] MEDS ORDERED: INSULIN HUMAN NPH SC SCH (08:00)
[2019-02-21] MEDS: INSULIN ASPART 100 UNITS/ML 3 ML PEN SC SCH ×2 (08:06→12:07)
[2019-02-21] MEDS: PANTOprazole 40 MG TAB PO SCH (08:08)
[2019-02-21] MEDS: SACUBITRIL-VALSARTAN 49/51 MG TAB PO SCH (08:08)
[2019-02-21] MEDS: SPIRONOLACTONE 25 MG TAB PO SCH (08:08)
[2019-02-21] MEDS: ASPIRIN 81 MG ECTAB PO SCH (08:08)
[2019-02-21] MEDS: POTASSIUM CHLORIDE 20 MEQ TABCR PO SCH (08:08)
[2019-02-21] MEDS: CHOLECALCIFEROL 1,000 UNITS TAB PO SCH (08:09)
[2019-02-21] MEDS ORDERED: BUDESONIDE 0.25 MG/2 ML VIAL (PULMICORT) INH SCH (09:00)
--- NOTE | 2019-02-21 12:51 | Pharmacy Report ---
Pharmacy Glycemic Short Note 2 - Date of Service February 21, 2019 - Glycemic Short BSG Results (Last 24 hours): 02/20/19 02/20/19 02/21/19 16:23 20:28 05:10 Glucose 117 H POC Glucose 117 H 107 H 02/21/19 02/21/19 07:09 11:13 Glucose POC Glucose 123 H 121 H OUTPATIENT ANTIDIABETIC REGIMEN: * Dulaglutide 1.5mg weekly * Humalog mix 50/50 40 units BID w/ meals * A1c = 7% ASSESSMENT: 02/21 * BSGs well controlled with insulin orders. * BSGs have ranged 107-119, thus will add a dosing scale to the NPH order should BSGs trend lower if PO intake poor 02/20 * Type 2 diabetic admitted with ADHF, volume overload * Patient has been followed on prior hospitalizations by Glycemic Service. Will utilize a regimen that has performed well on past admissions when ordered the same diet. Split/mixed insulin regimens are difficult to titrate and often lead to hypoglycemia in hospitalized patients with changes in ordered diets. PLAN FOR INPATIENT GLYCEMIC CONTROL: * Hold outpatient oral diabetes medications (dulaglutide, humalog mix) * Basal insulin * NPH SQ BID w/ breakfast + dinner per the following scale: * 8 units if BSG less than 110 * 12 units if BSG 110 or greater * Bolus insulin * NovoLog per scale ACHS or Q6hrs while NPO * Goal Range: Low 110 mg/dL - High 140 mg/dL * Correction Factor: 25 mg/dL/unit * Nutritional / Prandial insulin per carb ratio of 1 unit per 9 grams CHO consumed PLAN FOR DISCHARGE: * to be determined
--- NOTE | 2019-02-21 14:42 | Discharge Summary ---
Date of Service February 21, 2019 Admission HPI Per Admitting Provider Chief Complaint: Patient is a 43 years old male with past medical history of combined systolic and diastolic congestive heart failure, hypertension, cardiomyopathy, diabetes mellitus type 2, obstructive sleep apnea with CPAP, morbid obesity, who presents to the emergency room with a complaint of shortness of breath for the past several days, gaining a 10 pounds weight over 2 days, of total 25 pounds since the recent discharge from the hospital approximately 10 days ago. Patient was recently admitted to the hospital for CHF exacerbation. Patient reports when he was in the hospital he had brisk diuresis and he felt much better when fluid was off but unfortunately as soon as he went home he again again 25pounds fairly quickly. Patient reports that he takes his medication as prescribed and that he avoids salt in his diet. Patient denies fever, chills, chest pain, shortness of breath, palpitations, syncope or near syncope. EKG shows left atrial enlargement, prolonged QT interval. Labs are reviewed: WBC is 8.05, hemoglobin 14.1, hematocrit 43, platelets 183, PT 10.3, INR 1, APTT 26.1, arterial blood gas VBG 7.48, PCO2 33, PO2 71, bicarb 24, sodium 142, potassium 4, chloride 113, anion gap 4, BUN 9, creatinine 0.9, GFR 105, glucose 114, hemoglobin A1c pending, calcium 8.9, AST 11, ALT 17, troponin 0.015, BNP 626, TSH 1.48. Chest x-ray shows cardiomegaly and otherwise negative study. Decision was made to admit patient to PCU on telemetry for observation and to treat acute congestive heart failure. Primary Care Provider: Ilir Qureshi MD Principal Diagnosis Acute on chronic combined systolic and diastolic heart failure Discharge Exam Constitutional well developed, well nourished and + morbidly obese; no acute distress Eyes PERRL, conjunctivae normal, anicteric sclerae ENMT external ear and nose normal, oropharynx normal Neck trachea midline, no thyromegaly Respiratory normal respiratory effort; no respiratory distress and no cough Auscultation: + rales (bases) Cardiovascular Rate/Rhythm: regular rate and regular rhythm Heart Sounds: normal S1 and normal S2; no murmur Vessels: + JVD Extremities: normal capillary refill and + edema Gastrointestinal (Abdomen) normal bowel sounds, soft, nontender, no hepatosplenomegaly Musculoskeletal no cyanosis or clubbing, extremities motor strength 5/5 Skin no rashes, warm and dry Neurologic patellar DTR's 2+ bilat, sensation intact and PERRL, EOMI, accommodation nl, no face palsy, no dysarthria Psychiatric A+Ox3, euthymic affect Lymphatic no cervical or axillary lymphadenopathy Discharge Data Allergies Allergy/AdvReac Type Severity Reaction Status Date / Time ceftriaxone Allergy Severe SHORTNESS Verified 02/25/19 13:22 OF BREATH lidocaine Allergy Severe SHORTNESS Verified 02/25/19 13:22 OF BREATH, diaphoretic, hives procaine Allergy Severe SHORTNESS Verified 02/25/19 13:22 OF BREATH, diaphoretic, hives amoxicillin Allergy Intermediate HIVES/FACIAL Verified 02/25/19 13:22 SWELLING clavulanic acid Allergy Intermediate HIVES/FACIAL Verified 02/25/19 13:22 SWELLING lisinopril Allergy Intermediate HIVES Verified 02/25/19 13:22 albuterol Allergy Mild proair Verified 02/25/19 13:22 "trouble taking breaths" acetaminophen AdvReac Mild NAUSEA Verified 02/25/19 13:22 Consultations 02/19/19 14:52 ED Decision to Admit Stat Hospital Course (1) Acute on chronic combined systolic and diastolic CHF (congestive heart failure): likely due to noncompliance with salt and fluid restriction eats whatever he wants, drinks fluids (iced tea, water, soda) all day long due to constant thirst he says he is compliant with diuretics has gained 15-20 lbs since last discharge from hospital responding well to Lasix 40mg IV q8 Cr is 1 and K is stable no need to repeat echocardiogram at this time will not consult cardiology since admission is due to his non-compliance, nothing that they would add patient lost 7kg in two days on high dose diuretics he was feeling much better, far less edema in legs, no longer with orthopnea, dyspnea on exertion he wanted to go home we had a long discussion with his at the bedside about following a fluid restriction and salt restriction encouraged him to weigh himself daily will increase his Torsemide to 80mg twice a day as I suspect he will not follow restrictions as he has not done this in the past close follow up with [facility]iology next week and then PCP (2) Fluid overload: simply due to not following volume restriction lost about 7kg while admitted (3) BRISCOE (dyspnea on exertion): due to pulmonary edema resolved at the time of discharge (4) Orthopnea: due to acute heart failure, resolved (5) Hypertension: Continue home medicine sacubitril/valsartan 49/51 mg 2 tablets p.o. every morning. Continue metoprolol succinate 200 mg p.o. every afternoon Continue Spironolactone 25 mg p.o. every morning BP stable (6) Diabetes mellitus, type II: Hb A1c is 7 continue basal and bolus insulin monitor for hypoglycemia, no episodes (7) Obstructive sleep apnea: CPAP HS (8) Peripheral neuropathy: (9) Nonischemic cardiomyopathy: (10) Low back pain: ongoing issue, more on left side no injuries recently likely related to obesity and muscle strains in low back, pelvic girdle ideally would need to lose weight diuresis may help Total Time Total Time Spent Total Time Spent (In Minutes): 32 minutes Total Time Includes: Examination of the Patient, Discharge Planning and Medication Reconciliation Discharge Plan Discharge Items Patient Disposition: Home - Self-Care Reason For Visit: ACUTE CHF EXACERBATION Discharge Diagnosis: Acute on chronic combined systolic and diastolic heart failure Cardiomyopathy Condition on Discharge: Good Goals: improve control of heart failure follow medical regimen follow up with [facility] cardiology Activity: Resume your previous activity Non-emergency contact: Primary Care Provider and Ar Manager Call non-emergency contact if: you have any medication questions and your sympto ms worsen Follow-up/Referrals: Ilir Qureshi MD [Primary Care Provider] - Diet: Heart Healthy Fluids: 2000ml (8 cups) Addtl Attending Provider Instructions: Medications: note the following changes - TORSEMIDE: dose increased to 80mg (4 tablets) twice a day - POTASSIUM: dose increased to 40mEq (2 tablets) daily Acute on chronic combined heart failure diuresed well with Lasix 40mg IV three times a day, renal function tolerated diuresis well no longer with difficulty breathing, edema down significantly recommend that you increase your Torsemide to 80mg twice a day, previously was 60mg twice a day will increase your potassium supplement as well to help keep potassium normal managing heart failure can be simple, you NEED to follow the basic instructions... - limit your total fluids for the day to less than 2 liters, this includes water, juice, soda, coffee, melted ice it it natural for you to feel thirsty during the day but if you don't follow a fluid restriction you will be back in the hospital - limit your sodium intake to less than 2gm a day, read how much sodium is in your food, if you go out to eat limit yourself to half portions the more salt you eat, the medications your are taking will be ineffective and you will be back in the hospital - weigh yourself EVERY morning, your weight should stay the same or hopefully go down a little further with increase in Torsemide if your weight goes up by 2-3 lbs then you should contact [facility] cardiology for further instructions FOLLOW UP - [facility] cardiology on 02/27/19 Pending Studies at Discharge: No Stand-Alone Forms: My [facility] [employer], Smoking Cessation Medications and DC Order Prescriptions: New potassium chloride [Klor-Con M20] 20 mEq Tablet,Er Particles/Crystals 40 meq PO QAM 30 Days Qty: 60 RF: 1 torsemide 20 mg tablet 80 mg PO BID 30 Days Qty: 240 RF: 1 Continued Humalog Mix 50-50 KwikPen 100 unit/mL (50-50) insulin pen 40 units SQ BID RF: 0 (DME) lancets [OneTouch Delica Plus Lancet] 30 gauge misc See Dose Instructions .ROUTE .MEDSUPPLY Qty: 400 RF: 3 (DME) OneTouch Verio strip See Dose Instructions .ROUTE .MEDSUPPLY Qty: 400 RF: 3 Trulicity 1.5 mg/0.5 mL pen injector 1.5 mg SQ WEEKLY Qty: 6 RF: 3 esomeprazole magnesium [Nexium] 20 mg capsule,delayed release(DR/EC) 20 mg PO BID RF: 0 aspirin [Aspirin Low Dose] 81 mg tablet,delayed release (DR/EC) 81 mg PO QAM RF: 0 nitroglycerin [Nitrostat] 0.4 mg Tablet, Sublingual 0.4 mg sublingual UD PRN (Reason: chest pain) Qty: 100 RF: 0 cholecalciferol (vitamin D3) [Vitamin D3] 1,000 unit capsule 2,000 units PO BID RF: 0 metoprolol succinate 200 mg capsule,sprinkle,ER 24hr 200 mg PO QPM Qty: 30 RF: 0 spironolactone [Aldactone] 25 mg tablet 25 mg PO QAM RF: 0 budesonide [Pulmicort] 0.25 mg/2 mL suspension for nebulization 0.25 mg NEB UD PRN (Reason: SHORTNESS BREATH) RF: 0 Entresto 97-103 mg tablet 1 tab PO QAM RF: 0 Discontinued potassium chloride [K-Tab] 20 mEq tablet extended release 20 meq PO QAM RF: 0 No Action furosemide 40 mg tablet 40 mg PO BID RF: 0 potassium chloride 20 mEq tablet extended release 20 meq PO BID RF: 0 Discharge Orders: Discharge Order (Routine); Ordered 02/21/19 Ordered By: Trey Menendez Admission Data Admit Date/Time: 02/19/19 15:29 Attending Provider: Trey Menendez Admit Provider: Anu Lee Primary Care Provider: Ilir Qureshi Other Providers: Anu Lee Other Interventions: Discharge Summary Assessment (RN) Last Done: 02/21/19 14:44 DC Date/Time DO NOT enter until pt leaves facility: 02/21/19 14:58
[2019-02-22] MEDS ORDERED: BUDESONIDE 0.25 MG/2 ML VIAL (PULMICORT) INH SCH (08:00)
== END 2019-02-21 14:58 | disposition home or self-care (01) | DRG 293 ==
LOC: ED 14:23 → 2E 14:23 → OBSVTOIN 15:29 → SUATTDRO 15:29 → 2E 16:11

== ENCOUNTER 2019-03-31 09:17 | Inpatient (IN) ==
[2019-03-31 10:15] LABS: Basophils # (auto) 0.01 K/uL (0-0.2); Basophils % (auto) 0.1 %; Eosinophils # (auto) 0.07 K/uL (0-0.5); Eosinophils % (auto) 0.7 %; Hematocrit (blood only) 41.1 % (42-52); Hemoglobin 13.9 g/dL (14.0-18.0); Immature Granulocytes # (auto) 0.03 K/uL (0.00-0.02); Immature Granulocytes % (auto) 0.3 %; Lymphocytes # (auto) 1.96 K/uL (1.2-3.4); Lymphocytes % (auto) 20.4 %; Mean Corpuscular Hemoglobin 28.5 pg (25-34); Mean Corpuscular Hgb Conc 33.8 g/dL (32-36); Mean Corpuscular Volume 84.4 fL (80-100); Mean Platelet Volume 9.9 fL (7.4-10.4); Monocytes # (auto) 0.63 K/uL (0.11-0.59); Monocytes % (auto) 6.6 %; Neutrophils # (auto) 6.89 K/uL (1.4-6.5); Neutrophils % (auto) 71.9 %; Platelet Count 236 K/uL (130-400); RDW Coefficient of Variation 15.2 % (11.5-14.5); RDW Standard Deviation 47.3 fL (36.4-46.3); Red Blood Count 4.87 M/uL (4.7-6.1); White Blood Count 9.59 K/uL (4.8-10.8)
--- NOTE | 2019-03-31 10:23 | XRay Report ---
XR chest 1V portable CLINICAL HISTORY: Dyspnea COMPARISON STUDY: February 17, 2019 FINDINGS: The heart is enlarged. There is radiographic evidence of congestive failure/fluid overload. There are more focal airspace opacities the right lung base. These could represent focal edema, or i nfectious/inflammatory process. IMPRESSION: 1. Cardiomegaly and radiographic evidence of congestive failure/fluid overload 2. Right basilar airspace opacities, focal edema versus infectious/inflammatory process 3. Clinical and radiographic follow-up is recommended. ACT 112: Negative or not required by law. Electronically signed by: Garrett Munzi M.D. 03/31/2019 10:22 AM
[2019-03-31 10:26] LABS: Partial Thromboplastin Time 27.8 Seconds (21.0-31.0); Prothrombin Time 10.7 Seconds (9.0-12.0)
[2019-03-31] MEDS ORDERED: FUROSEMIDE 40 MG/4 ML VIAL IV STA (10:28)
[2019-03-31 10:31] LABS: Albumin Level 3.3 gm/dl (3.4-5.0); BUN Creatinine Ratio 11.2 (10-20); Calcium 8.4 mg/dl (8.5-10.1); Creatinine Clr Calc Pharmacy 143.8 ml/min; Est GFR (African American) 126.4; Est GFR (Non-African American) 109.1
[2019-03-31 10:33] LABS: Albumin Globulin Ratio 0.9 (0.9-2); Bilirubin,Total 0.9 mg/dl (0.2-1); Globulin 3.8 gm/dl (2.5-4.0); Potassium 4.1 mmol/L (3.5-5.1); Total Protein 7.1 gm/dl (6.4-8.2)
[2019-03-31 10:36] LABS: Troponin I 0.02 ng/ml (0-0.045)
[2019-03-31] MEDS ORDERED: OPTIRAY 320 125ml IV PRN (11:08)
--- NOTE | 2019-03-31 11:22 | CT Scan Report ---
CT ANGIOGRAM OF THE CHEST CLINICAL HISTORY: Shortness of breath. Possible pulmonary embolism. COMPARISON STUDY: February 06, 2019, chest x-ray dated 03/31/2019 TECHNIQUE: Following the IV administration of 118 mL of Optiray-320, CT angiogram of the thorax was p erformed from the thoracic inlet to the lung bases utilizing the pulmonary embolus protocol. Images a re reviewed in the axial, sagittal, and coronal planes. IV contrast was administered without complica tion. MIP imaging was performed. A dose lowering technique was utilized adhering to the principles o f ALARA. CT DOSE: 958.78 mGy.cm FINDINGS: There are scattered mediastinal lymph nodes which are not pathologically enlarged by size criteria. T here is no pathologic hilar or axillary lymphadenopathy. There is dilatation of the ascending thoracic aorta which measures 48 mm at the level of the main pul monary artery. There are no pulmonary artery filling defects to indicate acute pulmonary embolism. There is suboptim al lower lobe pulmonary arterial opacification. There are small bilateral pleural effusions. There is radiographic evidence of congestive failure wit h septal edema. There are scattered bilateral nodular airspace opacities, pulmonary edema versus pneu monitis. There is respiratory motion artifact. IMPRESSION: 1. No evidence of acute pulmonary embolism given the technical limitations of the study 2. Radiographic evidence of congestive failure with bilateral pleural effusions and mild septal edema 3. Cardiomegaly and mild aneurysmal dilatation of the ascending thoracic aorta which measures 48 mm 4. Multifocal airspace opacities, pulmonary edema versus multifocal pneumonitis. Clinical and radiogr aphic follow-up is recommended. ACT 112: Negative or not required by law. Electronically signed by: Garrett Muniz M.D. 03/31/2019 11:21 AM
[2019-03-31] MEDS ORDERED: GLUCOSE 10 TABS/TUBE PO PRN (15:10)
[2019-03-31] MEDS ORDERED: GLUCAGON FOR INJ 1 MG VIAL SQ PRN (15:10)
[2019-03-31] MEDS ORDERED: ONDANSETRON INJ 2 MG/ML 2 ML VIAL IV PRN (15:10)
[2019-03-31] MEDS ORDERED: DEXTROSE 50% 50 ML SYRINGE IV PRN (15:10)
[2019-03-31] MEDS ORDERED: CARBOHYDRATES FOR HYPOGLYCEMIA PO PRN (15:10)
[2019-03-31] MEDS ORDERED: GLUCOSE 40% GEL 15 GM TUBE PO PRN (15:10)
[2019-03-31 15:51] LABS: Magnesium 1.8 mg/dl (1.8-2.4); Phosphorus 3.7 mg/dl (2.5-4.9)
[2019-03-31] MEDS: FUROSEMIDE 40 MG in SYRINGE 0 ML IV SCH (16:14)
[2019-03-31] MEDS: DICLOFENAC SOD 1% GEL 100 GM TUBE EXT SCH ×3 (16:15→20:56)
[2019-03-31] MEDS: ALBUTEROL HFA 8 GM INHALER INH SCH ×2 (16:19→20:56)
[2019-03-31] MEDS ORDERED: HydrALAZINE HCL 20 MG/ML VIAL IV PRN (16:34)
--- NOTE | 2019-03-31 16:57 | Emergency Department Note ---
Entered by Ana Cristina Medley acting as a scribe for Mikhail Dodd MD History of Present Illness General Chief complaint: Shortness of Breath/Dyspnea Time Seen by Provider: 03/31/19 09:34 Source: patient History of Present Illness Provider complaint: syncope Onset (ago): day(s) 1 Location: head Pain Consistency: + other (episodes) Relieved By: + none Exacerbated By: + none Associated symptoms: + chest pain, + shortness of breath and + weakness The patient is a 43 year old male w/ PMHx heart failure and influenza who presents to the ED w/ CC of syncopal episodes beginning last night. The patient reports that he has been experiencing multiple syncopal episodes since 2229 yesterday. He notes that he had 2 episodes last night that lasted 1.5 hour s. He notes that he was just sitting watching TV when these episodes happened. He reports that this morning he had 3 more episodes while trying to get out of bed. He reports that he has been increasingly weak for the past several days. He reports that he has no history of seizures. He states that he has been experiencing shortness of breath and chest pain that radiates to his left shoulder. He reports that he has a history of heart failure and sees Dr. Kahn. He notes that he took all his medications this morning. The patient denies wearing any oxygen at home. He mentions that he called his PCP this morning and he referred him to the ED. Home Medications Home Medications Medication Instructions Recorded Confirmed Type insulin lispro protamine-lispro 40 units SQ BID ml 08/28/18 03/31/19 History 100 unit/mL (50-50) subcutaneous pen esomeprazole magnesium 20 mg 20 mg PO BID cap 09/05/18 03/31/19 History capsule,delayed release aspirin 81 mg tablet,delayed 81 mg PO QAM 09/17/18 03/31/19 History release cholecalciferol (vitamin D3) 25 2,000 units PO BID cap 09/17/18 03/31/19 History mcg (1,000 unit) capsule nitroglycerin [Nitrostat] 0.4 mg SUBLINGUAL UD PRN #100 tab 12/11/18 03/31/19 Rx OneTouch Delica Plus Lancet 30 #400 ea NS 12/23/18 03/31/19 Rx gauge OneTouch Verio #400 ea NS 12/23/18 03/31/19 Rx Trulicity 1.5 mg/0.5 mL 1.5 mg SQ WEEKLY #6 ml NS 12/31/18 03/31/19 Rx subcutaneous pen injector metoprolol succinate 200 mg PO QPM #30 ea 01/19/19 03/31/19 Rx Entresto 1 tab PO QAM 01/26/19 03/31/19 History budesonide [Pulmicort] 0.25 mg NEB UD PRN 01/26/19 03/31/19 History spironolactone [Aldactone] 25 mg PO QAM 01/26/19 03/31/19 History potassium chloride [Klor-Con M20] 40 meq PO QAM 30 Days #60 tab 02/21/19 03/31/19 Rx torsemide 80 mg PO BID 30 Days #240 tab 02/21/19 03/31/19 Rx furosemide 40 mg tablet 40 mg PO BID 02/25/19 03/31/19 History potassium chloride 20 mEq 20 meq PO BID 02/25/19 03/31/19 History tablet,extended release diclofenac sodium 2 gm TOP QID #100 gm 03/22/19 03/31/19 Rx albuterol sulfate 90 mcg/actuation 1 puffs INH QID #18 gm 03/26/19 03/31/19 Rx aerosol inhaler Allergies Allergy/AdvReac Type Severity Reaction Status Date / Time ceftriaxone Allergy Severe SHORTNESS Verified 03/31/19 10:42 OF BREATH lidocaine Allergy Severe SHORTNESS Verified 03/31/19 10:42 OF BREATH, diaphoretic, hives procaine Allergy Severe SHORTNESS Verified 03/31/19 10:42 OF BREATH, diaphoretic, hives amoxicillin Allergy Intermediate HIVES/FACIAL Verified 03/31/19 10:42 SWELLING clavulanic acid Allergy Intermediate HIVES/FACIAL Verified 03/31/19 10:42 SWELLING lisinopril Allergy Intermediate HIVES Verified 03/31/19 10:42 albuterol Allergy Mild proair Verified 03/31/19 10:42 "trouble taking breaths" acetaminophen AdvReac Mild NAUSEA Verified 03/31/19 10:42 Past Med/Surg History Medical History Acquired claw toe of left foot (Acute) Acquired claw toe of right foot (Acute) Acute on chronic systolic (congestive) heart failure (Chronic) Back pain (Resolved) Bilateral knee pain (Acute) Carpal tunnel syndrome (Acute) Cluster headache (Acute) Cognitive impairment 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 Difficult to manage. Integrated into heart failure clinic. Frequent admissions for heart failure exacerbations. Echo (05/31) EF=25-30% with mod to severe global hypokinesis, basal kelsi-septal akinetic wall, LVH, RVSP elevated at 30-40mmHg, and mod dilated ascending aorta. Managed medically with ASA + BB + ARB/Neprilysin inhibitor (Entresto) + high dose furosemide (160mg BID) + metolazone (3x weekly). Considering ICD given EF. COPD (chronic obstructive pulmonary disease) (Chronic) Depression Depression with anxiety (Acute) Diabetes mellitus with diabetic polyneuropathy (Acute) Diabetes mellitus, type II (Chronic) DM II (diabetes mellitus, type II), controlled Dyslipidemia (Acute) Epidermoid cyst of neck Fatty liver GERD (gastroesophageal reflux disease) GERD (gastroesophageal reflux disease) Hemoptysis HTN (hypertension) Hypertension (Chronic) Learning disability (Resolved) Lung nodule (Acute) Medical non-compliance Mixed hearing loss of left ear (Acute) Morbid obesity (Chronic) BMI> 50 Morbid obesity with BMI of 50.0-59.9, adult Nonischemic cardiomyopathy EF 30-35% Nonischemic cardiomyopathy Obstructive sleep apnea (Chronic) Polysomnography (07/28) with severe mixed osbtructive and central apnea treated with Bipap 27/11 MARIELENA (obstructive sleep apnea) Does not comply with CPAP Peripheral neuropathy (Chronic) 2/2 DM type II. Located on the feet bilaterally. Not requiring medication. Followed by podiatry Right-sided sensorineural hearing loss (Acute) Sinus bradycardia Sinus tachycardia (Acute) TMJ (dislocation of temporomandibular joint) (Acute) Umbilical hernia (Acute) Vitamin D insufficiency Previously deficient, taking Vit D supplementation Surgical History History of carpal tunnel surgery History of cholecystectomy S/P tonsillectomy Family History Father , age 57 of an SC. 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 Beliefs That Will Affect Care: None marital status: Current Living Situation: Spouse current occupational status: unemployed Other Information That Helps Us Care for You: No Feels Safe at Home: Yes Safety Concerns: Feels Safe At This Time Smoking Status: Former smoker Tobacco Type: cigarettes ; Age Started Using Tobacco: 14 ; Age Quit Using Tobacco: 18 ; Second Hand Exposure: No ; Hx Alcohol Use: No Hx Substance Use: No Childhood Exposure to Second-Hand Smoke: Yes Dental Care, Regularly: Yes Physical Activity Frequency: Does not Exercise Review of Systems See HPI for pertinent positives & negatives. and A total of 10 systems reviewed and were otherwise negative Physical Exam Vital Signs Vital Signs - 24 hr 03/31/19 09:25 03/31/19 09:27 03/31/19 10:11 Temperature 36.6 C Temperature Source Oral Pulse Rate 103 H 104 H 94 H Pulse Rate from SpO2 Sensor 104 H 94 H Respiratory Rate 20 22 19 Respiratory Effort / Characteristics Non-Labored Spontaneous Respiratory Depth Normal Blood Pressure 179/150 H 179/150 H 167/108 H Blood Pressure Mean 163 159 121 Pulse Oximetry 95 93 94 Oxygen Delivery Method Room Air Sepsis Recent Fever Within 48 Hours No Sepsis Action Taken by Nursing No Action Required 03/31/19 10:31 03/31/19 11:26 03/31/19 11:31 Temperature Temperature Source Pulse Rate 105 H 101 H 112 H Pulse Rate from SpO2 Sensor 102 H 101 H 109 H Respiratory Rate 16 18 26 H Respiratory Effort / Characteristics Respiratory Depth Blood Pressure 172/134 H 175/149 H 176/147 H Blood Pressure Mean 157 155 157 Pulse Oximetry 94 91 93 Oxygen Delivery Method Sepsis Recent Fever Within 48 Hours Sepsis Action Taken by Nursing 03/31/19 12:02 Temperature Temperature Source Pulse Rate 100 H Pulse Rate from SpO2 Sensor 101 H Respiratory Rate 20 Respiratory Effort / Characteristics Respiratory Depth Blood Pressure 194/126 H Blood Pressure Mean 169 Pulse Oximetry 92 Oxygen Delivery Method Sepsis Recent Fever Within 48 Hours Sepsis Action Taken by Nursing GENERAL: Well nourished, ill in appearance. EYE EXAM: Normal conjunctiva. PERRL, no anisocoria and EOM's grossly intact w/o pain. OROPHARYNX: Moist mucous membranes. Grossly normal dentition. NECK: Supple, no nuchal rigidity, no adenopathy, non-tender. No signs of meningismus. LUNGS: Trace crackles. Normal chest wall mechanics. HEART: Tachycardic rate, regular rhythm, no MRG. ABDOMEN: Abdomen soft, non-tender, normo-active bowel sounds, no masses, no rebound or guarding. BACK: No CVA TTP. SKIN: No rashes and no bruising. UPPER EXTREMITIES: Upper extremities are grossly normal. LOWER EXTREMITIES: Bilateral lower extremity edema. No calf pain. NEURO EXAM: A&O x3, cranial nerves II-XII grossly intact, normal speech, moves all 4 extremities on command w/o issue. Course Course 0938: The patient was evaluated in room A12B, and a complete history and physical examination were performed. Per the ED note, the patient was recently admitted on the for influenza and heart failure. 0940: The patient was placed on a strategic partnership representative which showed sinus tachycardia and a rate of 105. 1040: Per the ED note, his body weight on the was 160 kg and today it was 159 kg. 1135: I reviewed the patient's case with Dr. Matilda Burr- [facility] Hospitalist. She will evaluate the patient for further management. Administered Medications Albuterol (Ventolin Hfa) 1 puffs INH QID SUKHWINDER Stop: 04/30/19 16:59 Last Admin: 03/31/19 16:19 Dose: 1 puffs Documented by: [id number] Diclofenac Sodium (Voltaren 1% Top) 2 gm EXT QID SUKHWINDER Stop: 04/30/19 15:09 Last Admin: 03/31/19 16:18 Dose: Not Given Documented by: [id number] Admin: 03/31/19 16:15 Dose: Not Given Documented by: [id number] Furosemide 40 mg/ Syringe 4 mls @ 4 mls/min IV [id number] SUKHWINDER Stop: 04/30/19 16:59 Last Admin: 03/31/19 16:14 Dose: 4 mls/min Documented by: [id number] Ioversol (Optiray 320 125ml) 118 ml IV ONCE PRN PRN Reason: Interaction Checking Stop: 04/04/19 11:07 Last Admin: 03/31/19 11:09 Dose: 118 ml Documented by: [id number] Miscellaneous (Order Awaiting Action) 1 ea N/A QS SUKHWINDER Stop: 04/30/19 15:59 Last Admin: 03/31/19 16:15 Dose: Not Given Documented by: [id number] Discontinued Medications Furosemide (Lasix) 40 mg IV NOW STA Stop: 03/31/19 10:29 Last Admin: 03/31/19 11:19 Dose: 40 mg Documented by: [id number] Medical Decision Making Medical Records Attestation: I reviewed the patient's medical records. Home Medications Current Medication List: was personally reviewed by me Laboratory Data Attestation: I reviewed the patient's lab results. Result diagrams: 03/31/19 10:00 03/31/19 10:00 Lab Results 03/31/19 03/31/19 03/31/19 Range/Units 10:00 10:00 10:00 WBC 9.59 (4.8-10.8) K/uL RBC 4.87 (4.7-6.1) M/uL Hgb 13.9 L (14.0-18.0) g/dL Hct 41.1 L (42-52) % MCV 84.4 (80-100) fL MCH 28.5 (25-34) pg MCHC 33.8 (32-36) g/dL RDW Std Deviation 47.3 H (36.4-46.3) fL RDW Coeff of Zoltan 15.2 H (11.5-14.5) % Plt Count 236 (130-400) K/uL MPV 9.9 (7.4-10.4) fL Immature Gran % (Auto) 0.3 % Neut % (Auto) 71.9 % Lymph % (Auto) 20.4 % Leon % (Auto) 6.6 % Eos % (Auto) 0.7 % Baso % (Auto) 0.1 % Immature Gran # (Auto) 0.03 H (0.00-0.02) K/uL Neut # (Auto) 6.89 H (1.4-6.5) K/uL Lymph # (Auto) 1.96 (1.2-3.4) K/uL Leon # (Auto) 0.63 H (0.11-0.59) K/uL Eos # (Auto) 0.07 (0-0.5) K/uL Baso # (Auto) 0.01 (0-0.2) K/uL PT 10.7 (9.0-12.0) Seconds INR 1.0 (0.9-1.1) APTT 27.8 (21.0-31.0) Seconds PTT Ratio 1.0 Sodium 139 (136-145) mmol/L Potassium 4.1 (3.5-5.1) mmol/L Chloride 108 H (98-107) mmol/L Carbon Dioxide 28 (21-32) mmol/L Anion Gap 3.0 (3-11) BUN 9 (7-18) mg/dl Creatinine 0.82 (0.6-1.4) mg/dl Est Cr Clr Drug Dosing 143.8 ml/min Est GFR ( Amer) 126.4 Est GFR (Non-Af Amer) 109.1 BUN/Creatinine Ratio 11.2 (10-20) Glucose 132 H (70-99) mg/dl Calcium 8.4 L (8.5-10.1) mg/dl Phosphorus (2.5-4.9) mg/dl Magnesium (1.8-2.4) mg/dl Total Bilirubin 0.9 (0.2-1) mg/dl AST 17 (15-37) U/L ALT 33 (12-78) U/L Alkaline Phosphatase 82 (45-117) U/L Troponin I 0.020 (0-0.045) ng/ml NT-Pro-B Natriuret Pep 3092 H (0-450) pg/ml Total Protein 7.1 (6.4-8.2) gm/dl Albumin 3.3 L (3.4-5.0) gm/dl Globulin 3.8 (2.5-4.0) gm/dl Albumin/Globulin Ratio 0.9 (0.9-2) 03/31/19 Range/Units 10:00 WBC (4.8-10.8) K/uL RBC (4.7-6.1) M/uL Hgb (14.0-18.0) g/dL Hct (42-52) % MCV (80-100) fL MCH (25-34) pg MCHC (32-36) g/dL RDW Std Deviation (36.4-46.3) fL RDW Coeff of Zoltan (11.5-14.5) % Plt Count (130-400) K/uL MPV (7.4-10.4) fL Immature Gran % (Auto) % Neut % (Auto) % Lymph % (Auto) % Leon % (Auto) % Eos % (Auto) % Baso % (Auto) % Immature Gran # (Auto) (0.00-0.02) K/uL Neut # (Auto) (1.4-6.5) K/uL Lymph # (Auto) (1.2-3.4) K/uL Leon # (Auto) (0.11-0.59) K/uL Eos # (Auto) (0-0.5) K/uL Baso # (Auto) (0-0.2) K/uL PT (9.0-12.0) Seconds INR (0.9-1.1) APTT (21.0-31.0) Seconds PTT Ratio Sodium (136-145) mmol/L Potassium (3.5-5.1) mmol/L Chloride (98-107) mmol/L Carbon Dioxide (21-32) mmol/L Anion Gap (3-11) BUN (7-18) mg/dl Creatinine (0.6-1.4) mg/dl Est Cr Clr Drug Dosing ml/min Est GFR ( Amer) Est GFR (Non-Af Amer) BUN/Creatinine Ratio (10-20) Glucose (70-99) mg/dl Calcium (8.5-10.1) mg/dl Phosphorus 3.7 (2.5-4.9) mg/dl Magnesium 1.8 (1.8-2.4) mg/dl Total Bilirubin (0.2-1) mg/dl AST (15-37) U/L ALT (12-78) U/L Alkaline Phosphatase (45-117) U/L Troponin I (0-0.045) ng/ml NT-Pro-B Natriuret Pep (0-450) pg/ml Total Protein (6.4-8.2) gm/dl Albumin (3.4-5.0) gm/dl Globulin (2.5-4.0) gm/dl Albumin/Globulin Ratio (0.9-2) Imaging Data Radiologist's Impression: Radiology results as stated below per my review and the radiologist's interpretation: XR chest 1V portable CLINICAL HISTORY: Dyspnea COMPARISON STUDY: February 17, 2019 FINDINGS: The heart is enlarged. There is radiographic evidence of congestive failure/fluid overload. There are more focal airspace opacities the right lung base. These could represent focal edema, or infectious/inflammatory process. IMPRESSION: 1. Cardiomegaly and radiographic evidence of congestive failure/fluid overload 2. Right basilar airspace opacities, focal edema versus infectious/inflammatory process 3. Clinical and radiographic follow-up is recommended. ACT 112: Negative or not required by law. Electronically signed by: Garrett Muniz M.D. 03/31/2019 10:[address] ANGIOGRAM OF THE CHEST CLINICAL HISTORY: Shortness of breath. Possible pulmonary embolism. COMPARISON STUDY: February 06, 2019, chest x-ray dated 03/31/2019 TECHNIQUE: Following the IV administration of 118 mL of Optiray-320, CT angiogra m of the thorax was performed from the thoracic inlet to the lung bases utilizing the pulmonary embolus protocol. Images are reviewed in the axial, sagittal, and coronal planes. IV contrast was administered without complication. MIP imaging was performed. A dose lowering technique was utilized adhering to the principles of ALARA. CT DOSE: 958.78 mGy.cm FINDINGS: There are scattered mediastinal lymph nodes which are not pathologically enlarged by size criteria. There is no pathologic hilar or axillary lymphadenopathy. There is dilatation of the ascending thoracic aorta which measures 48 mm at the level of the main pulmonary artery. There are no pulmonary artery filling defects to indicate acute pulmonary embolism. There is suboptimal lower lobe pulmonary arterial opacification. There are small bilateral pleural effusions. There is radiographic evidence of congestive failure with septal edema. There are scattered bilateral nodular airspace opacities, pulmonary edema versus pneumonitis. There is respiratory motion artifact. IMPRESSION: 1. No evidence of acute pulmonary embolism given the technical limitations of the study 2. Radiographic evidence of congestive failure with bilateral pleural effusions and mild septal edema 3. Cardiomegaly and mild aneurysmal dilatation of the ascending thoracic aorta which measures 48 mm 4. Multifocal airspace opacities, pulmonary edema versus multifocal pneumonitis. Clinical and radiographic follow-up is recommended. ACT 112: Negative or not required by law. Electronically signed by: Garrett Muniz M.D. 03/31/2019 11:21 AM ECG Data Attestation: I personally reviewed and interpreted this ECG as follows: Indication: + syncope Rate (beats per minute): 105 Rhythm: + sinus tachycardia ECG Intervals/blocks: + Prolonged QT ECG [place]: + Normal ECG Findings: + PVCs and + Other (consistent with bigeminy) Comparison ECG Date: from (03/21/19) Change: the following changes noted (PVCs are new) Blood Pressure Blood Pressure Findings: Elevated blood pressure Blood Pressure Disposition: further management by hospitalist BEENA Cody Differential diagnosis: Etiologies such as vasovagal event, infection, hypoglycemia, electrolyte abnormalities, cardiac sources, intracerebral event, toxicologic, neurologic, as well as others were entertained. The patient is a 43 year old male w/ PMHx heart failure and influenza who presents to the ED w/ CC of syncopal episodes beginning last night. Patient was seen in eval at the bedside. The patient was presenting with persistent syncope, shortness of breath as well as hemoptysis. The patient does not take any blood thinning medications. Patient does have significant heart failure hypertension MARIELENA. The patient did a blood work completed along with CT angios of the chest. The patient did have a normal white count. Hemoglobin is stable. The patient does have an elevated BNP. Troponin is detectable but not elevated. Patient was given some Lasix as the patient does have some crackles and lower extremity edema. The patient has not had much in significant change of his weight upon admission to now only about [address] of the chest did show that the patient has some dilatation but currently not a true aneurysm of the thoracic aorta. No evidence of any PE. Patient does have congestive change seen. Patient did have questionable pulmonary edema versus multifocal pneumonitis. The patient does not have a white count is not currently hypoxic but the patient does have a history of CHF. Believe edema to be more likely. Given the patient's congestive change and the fact that the patient has a history of noncompliance it is very difficult to manage the patient outpatient. I did speak the on-call hospitalist agreed to further evaluate treat the patien t. Patient was admitted to medicine service. Impression & Plan Heart failure, Shortness of breath, Dilatation of thoracic aorta Discharge Plan Visit Data *Final* Discharge Date/Time: 03/31/19 14:21 Chief Complaint: Shortness of Breath/Dyspnea ED Provider: Mikhail Dodd Discharge Problem: Heart failure, Shortness of breath, Dilatation of thoracic aorta Patient Disposition: Admitted As Inpatient Discharge Instructions Interventions: ED Discharge Assessment Last Done: 03/31/19 14:21 Discharge Problem: Heart failure Qualifiers: Heart failure type: unspecified Heart failure chronicity: unspecified Qualified Code(s): I50.9 - Heart failure, unspecified The scribe's documentation has been prepared under my direction and personally reviewed by me in its entirety. I confirm that the note above accurately reflects all work, treatment, procedures, and medical decision making performed by me.
[2019-03-31] MEDS ORDERED: TORSEMIDE 20 MG TAB PO SCH (17:00)
[2019-03-31] MEDS ORDERED: METOPROLOL TARTRATE 25 MG TAB PO STA (17:18)
[2019-03-31] MEDS: INSULIN HUMAN NPH SC SCH (17:20)
[2019-03-31] MEDS: INSULIN ASPART 100 UNITS/ML 3 ML PEN SC SCH ×2 (17:21→20:55)
--- NOTE | 2019-03-31 17:33 | Cardiology Consultation ---
Date of Consultation March 31, 2019 Assessment & Plan (1) Acute on chronic heart failure with reduced ejection fraction and diastolic dysfunction: (2) Hypertensive urgency: (3) Noncompliance with medication regimen: (4) NICM (nonischemic cardiomyopathy): (5) Obesity hypoventilation syndrome: I had a long discussion with the patient regarding importance of adherence to his medication regimen. Patient denies noncompliance at this time, however, given presence of tachycardia, weight gain, and progressive signs/symptoms of congestive heart failure - nonadherence is suspected. Blood pressure remains elevated. Add topical nitrates for afterload reduction. Agree with IV diuretic therapy, Lasix 40 mg twice daily. 25 mg of metoprolol tartrate to be given now. Evening dose of Entresto will be given now as well. Utilize IV hydralazine and labetalol as needed to improve blood pressure control acutely. Continue telemetry monitoring. Follow daily weight, fluid balance, GFR, and electrolytes. The indications for ICD implantation were discussed with the patient and his . I explained that ICD implantation is not a substitution for medical therapies/medication adherence. Patient informed that an ICD would not prevent future hospitalizations for decompensated congestive heart failure. In regard to potential syncope, it is unclear whether the patient actually suffered a syncopal episode. Some episodes suggest possible weakness with associated fall. Monitor telemetry for any sustained dysrhythmias. Repeat 2D transthoracic echocardiogram when heart rate, blood pressure, and volume status has stabilized. History of Present Illness Reason for Consultation: Acute decompensated heart failure Uncontrolled hypertension Requesting Physician: Dr. Burr Attending Physician: Ciarra Burr, History of Present Illness 43-year-old patient presents to the hospital with shortness of breath and possible syncope. Describes multiple episodes of syncope over the past 24 hours. States he passed out last night at approximately 9 AM and his family was unable to awaken him until this morning. Suffered another episode while in the bathroom today. He fell to the floor. Family was able to arouse him with tactile stimuli. Patient is not a reliable historian. States he is taking medications as prescribed, however, noted to be tachycardic with approximately 10 pound weight gain since his most recent office visit. Longstanding history of chronic systolic heart failure and medication nonadherence. Currently seated upright and conversant. Eating his p.m. meal with his . There are multiple family members in the room as well. Patient in no acute distress. Denies any symptoms currently. States "I need that defibrillator because I cannot keep coming in here". Allergies Allergy/AdvReac Type Severity Reaction Status Date / Time ceftriaxone Allergy Severe SHORTNESS Verified 03/31/19 10:42 OF BREATH lidocaine Allergy Severe SHORTNESS Verified 03/31/19 10:42 OF BREATH, diaphoretic, hives procaine Allergy Severe SHORTNESS Verified 03/31/19 10:42 OF BREATH, diaphoretic, hives amoxicillin Allergy Intermediate HIVES/FACIAL Verified 03/31/19 10:42 SWELLING clavulanic acid Allergy Intermediate HIVES/FACIAL Verified 03/31/19 10:42 SWELLING lisinopril Allergy Intermediate HIVES Verified 03/31/19 10:42 albuterol Allergy Mild proair Verified 03/31/19 10:42 "trouble taking breaths" acetaminophen AdvReac Mild NAUSEA Verified 03/31/19 10:42 Home Medications Home Medications Medication Instructions Recorded Confirmed Type insulin lispro protamine-lispro 40 units SQ BID ml 08/28/18 03/31/19 History 100 unit/mL (50-50) subcutaneous pen esomeprazole magnesium 20 mg 20 mg PO BID cap 09/05/18 03/31/19 History capsule,delayed release aspirin 81 mg tablet,delayed 81 mg PO QAM 09/17/18 03/31/19 History release cholecalciferol (vitamin D3) 25 2,000 units PO BID cap 09/17/18 03/31/19 History mcg (1,000 unit) capsule nitroglycerin [Nitrostat] 0.4 mg SUBLINGUAL UD PRN #100 tab 12/11/18 03/31/19 Rx OneTouch Delica Plus Lancet 30 #400 ea NS 12/23/18 03/31/19 Rx gauge OneTouch Verio #400 ea NS 12/23/18 03/31/19 Rx Trulicity 1.5 mg/0.5 mL 1.5 mg SQ WEEKLY #6 ml NS 12/31/18 03/31/19 Rx subcutaneous pen injector metoprolol succinate 200 mg PO QPM #30 ea 01/19/19 03/31/19 Rx Entresto 1 tab PO QAM 01/26/19 03/31/19 History budesonide [Pulmicort] 0.25 mg NEB UD PRN 01/26/19 03/31/19 History spironolactone [Aldactone] 25 mg PO QAM 01/26/19 03/31/19 History potassium chloride [Klor-Con M20] 40 meq PO QAM 30 Days #60 tab 02/21/19 03/31/19 Rx torsemide 80 mg PO BID 30 Days #240 tab 02/21/19 03/31/19 Rx furosemide 40 mg tablet 40 mg PO BID 02/25/19 03/31/19 History potassium chloride 20 mEq 20 meq PO BID 02/25/19 03/31/19 History tablet,extended release diclofenac sodium 2 gm TOP QID #100 gm 03/22/19 03/31/19 Rx albuterol sulfate 90 mcg/actuation 1 puffs INH QID #18 gm 03/26/19 03/31/19 Rx aerosol inhaler Patient History Medical History Acquired claw toe of left foot (Acute) Acquired claw toe of right foot (Acute) Acute on chronic systolic (congestive) heart failure (Chronic) Back pain (Resolved) Bilateral knee pain (Acute) Carpal tunnel syndrome (Acute) Cluster headache (Acute) Cognitive impairment 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 Difficult to manage. Integrated into heart failure clinic. Frequent admissions for heart failure exacerbations. Echo (05/31) EF=25-30% with mod to severe global hypokinesis, basal kelsi-septal akinetic wall, LVH, RVSP elevated at 30-40mmHg, and mod dilated ascending aorta. Managed medically with ASA + BB + ARB/Neprilysin inhibitor (Entresto) + high dose furosemide (160mg BID) + metolazone (3x weekly). Considering ICD given EF. COPD (chronic obstructive pulmonary disease) (Chronic) Depression Depression with anxiety (Acute) Diabetes mellitus with diabetic polyneuropathy (Acute) Diabetes mellitus, type II (Chronic) DM II (diabetes mellitus, type II), controlled Dyslipidemia (Acute) Epidermoid cyst of neck Fatty liver GERD (gastroesophageal reflux disease) GERD (gastroesophageal reflux disease) Hemoptysis HTN (hypertension) Hypertension (Chronic) Learning disability (Resolved) Lung nodule (Acute) Medical non-compliance Mixed hearing loss of left ear (Acute) Morbid obesity (Chronic) BMI> 50 Morbid obesity with BMI of 50.0-59.9, adult Nonischemic cardiomyopathy EF 30-35% Nonischemic cardiomyopathy Obstructive sleep apnea (Chronic) Polysomnography (07/28) with severe mixed osbtructive and central apnea treated with Bipap 27/11 MARIELENA (obstructive sleep apnea) Does not comply with CPAP Peripheral neuropathy (Chronic) 2/2 DM type II. Located on the feet bilaterally. Not requiring medication. Followed by podiatry Right-sided sensorineural hearing loss (Acute) Sinus bradycardia Sinus tachycardia (Acute) TMJ (dislocation of temporomandibular joint) (Acute) Umbilical hernia (Acute) Vitamin D insufficiency Previously deficient, taking Vit D supplementation Surgical History History of carpal tunnel surgery History of cholecystectomy S/P tonsillectomy Family History Father , age 57 of an VT. 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 Beliefs That Will Affect Care: None marital status: Current Living Situation: Spouse current occupational status: unemployed Other Information That Helps Us Care for You: No Feels Safe at Home: Yes Safety Concerns: Feels Safe At This Time Smoking Status: Former smoker Tobacco Type: cigarettes ; Age Started Using Tobacco: 14 ; Age Quit Using Tobacco: 18 ; Second Hand Exposure: No ; Hx Alcohol Use: No Hx Substance Use: No Childhood Exposure to Second-Hand Smoke: Yes Dental Care, Regularly: Yes Physical Activity Frequency: Does not Exercise Review of Systems Review of Systems: All systems reviewed & are unremarkable except as noted in HPI & below Physical Exam Constitutional: well developed, well nourished and + morbidly obese Respiratory: normal respiratory effort; no respiratory distress, no labored breathing, no retractions, does not use accessory muscles and no cough Auscultation: + diminished lung sounds (Bases bilaterally) and + rales (Bases bilaterally); no rhonchi and no wheezes Cardiovascular: Rate/Rhythm: regular rate and + tachycardic Heart Sounds: normal S1 and normal S2; no murmur and no cardiac rub Vessels: + JVD (Difficult to assess due to body habitus. No visible JVD in the upright position); no carotid bruit Extremities: + edema Skin: no rashes, warm and dry Neurologic: moves all extremities; no focal motor deficits Psychiatric: A+Ox3, euthymic affect Insight: + poor insight Judgement: + limited judgement Results & Data ([facility] [place]) Vital Signs (Past 12 Hours) Vital Signs Temp Pulse Pulse Resp BP BP Pulse Ox 03/31/19 17:14 114 H 193/127 H 03/31/19 15:49 36.4 C L 102 H 20 187/134 H 91 03/31/19 14:40 36.4 C L 100 H 20 198/91 H 97 03/31/19 14:01 108 H 17 190/137 H 96 03/31/19 13:11 100 H 20 193/135 H 90 03/31/19 12:02 100 H 20 194/126 H 92 03/31/19 11:31 112 H 26 H 176/147 H 93 03/31/19 11:26 101 H 18 175/149 H 91 03/31/19 10:31 105 H 16 172/134 H 94 03/31/19 10:11 94 H 19 167/108 H 94 03/31/19 09:27 36.6 C 104 H 22 179/150 H 93 03/31/19 09:25 103 H 20 179/150 H 95
[2019-03-31] MEDS: NITROGLYCERIN 2% OINTMENT 30GM TUBE EXT SCH (17:50)
[2019-03-31] MEDS: SACUBITRIL-VALSARTAN 97-103 MG TAB PO SCH ×2 (18:26→20:55)
[2019-03-31 19:45] LABS: BUN Creatinine Ratio 9.2 (10-20); Calcium 8.8 mg/dl (8.5-10.1); Creatinine Clr Calc Pharmacy 135.2 ml/min; Est GFR (African American) 99.8; Est GFR (Non-African American) 86.1; Potassium 3.8 mmol/L (3.5-5.1)
[2019-03-31] MEDS: METOPROLOL SUCC 50MG EXT REL TAB PO SCH (20:55)
[2019-03-31] MEDS: PANTOprazole 40 MG TAB PO SCH (20:55)
[2019-03-31] MEDS ORDERED: FUROSEMIDE 40 MG/4 ML VIAL IV SCH (21:00)
[2019-03-31] MEDS ORDERED: INSULIN LISPRO PROTAMIN LISPRO SQ SCH (21:00)
[2019-03-31] MEDS ORDERED: BUDESONIDE 0.25 MG/2 ML VIAL (PULMICORT) INH SCH (21:00)
--- NOTE | 2019-03-31 22:45 | History & Physical Report ---
Date of Service March 31, 2019 Assessment & Plan (1) Syncope: Patient with possible syncopal event. Biggest concern would be arrhythmia in setting of NICM with reduced EF, medication effects, vasovagal syncope. CTA without PE. EKG with no acute ischemic changes. Electrolytes are within normal limits. -Observation to medical floor with telemetry -Check orthostatic VS -Cardiology consultation appreciated -Patient administered Metoprolol 25mg po x 1 dose Present on Admission?: Yes (2) Acute on chronic heart failure with reduced ejection fraction and diastolic dysfunction: Patient endorses orthopnea/edema/SOB and BRISCOE. Difficult to assess volume status on exam due to body habitus. Elevated BNP = 3092. Imaging suggestive of pulmonary edema -Lasix 40mg IV BID -Monitor electrolytes, renal function - BMP q 12 hours with aggressive diuresis -Daily weights -Strict intake/output -Na restriction, fluid restriction 1500mL/day -Repeat CXR in AM -Will hold PO torsemide for now -Repeat echocardiogram when medically optimized -Continue Entresto BID -Continue Spironolactone 25mg po q AM -Continue Metoprolol 200mg po qPM Present on Admission?: Yes (3) Dilatation of thoracic aorta: Noted on imaging -Should be followed outpatient Present on Admission?: Yes (4) Hypertension: Patient with elevated blood pressure at present -Continue Metoprolol, Spironolactone, Entresto -Hydralazine 10mg IV q 4 hours as needed for BP > 180/110 -Nitro paste -Continue to monitor Present on Admission?: Yes (5) Morbid obesity: Noted -Daily weights as above Present on Admission?: Yes (6) Diabetes mellitus, type II: Blood sugar presently 132 -NPH 12u BID -ISS -Goal BS 120 - 160 Present on Admission?: Yes (7) Obstructive sleep apnea: MARIELENA/Obesity hypoventilation syndrome. Patient reports noncompliance with BiPAP at home. Could be contributing greatly to labile blood pressures and decompensation of HFrEF -BiPAP 16/10 qHS Present on Admission?: Yes (8) GERD (gastroesophageal reflux disease): Chronic -Continue Protonix 40mg po BID Present on Admission?: Yes (9) COPD (chronic obstructive pulmonary disease): Chronic. No active wheezing at present -Continue Pulmicort -Continue Albuterol F/E/N -Diuresis as above with Lasix 40mg IV BID, check BNP BID, Heart healthy/CC/Na restriction Ppx - Protonix Code - Full Dispo - Observation to medical floor with telemetry History of Present Illness Chief Complaint: Possible syncope Primary Care Provider: CM Vargas, MS, [employer] [facility] Alok Huff is a 43yo C male with multiple medical comorbidities to include DM/HTN/HLP, CHF/COPD, medication non-adherence. He was recently admitted to our service for acute on chronic exacerbation of HFrEF, HTN urgency and influenza. He was treated with Tamiflu as well as IV Lasix and discharged home in stable condition on 03/22/19. He returns today with complaint of multiple possible syncopal events. Patient had a poor night's sleep last night - up multiple times, couldn't get comfortable, felt tired, weak and unable to move his arms and legs. He states t hat this AM around 06:30 he was unable to get up due to diffuse weakness. He reports becoming short of breath and having bandlike anterior chest discomfort as well as throat pain then he passed out. No seizure activity reported. No incontinence. Patient reports feeling fine when he woke up. He reports having a similar episode again at 08:30 He reports increased edema as well as SOB/BRISCOE/orthopnea and decreased exercise tolerance. He does not weigh himself routinely. (Per records he was 154.67 kg on 03/26 and is 160.7kg today - not on same scale). He reports adherence to his medications as well as a low sodium diet. ER Course: Lasix 40mg IV Allergies Allergy/AdvReac Type Severity Reaction Status Date / Time ceftriaxone Allergy Severe SHORTNESS Verified 03/31/19 10:42 OF BREATH lidocaine Allergy Severe SHORTNESS Verified 03/31/19 10:42 OF BREATH, diaphoretic, hives procaine Allergy Severe SHORTNESS Verified 03/31/19 10:42 OF BREATH, diaphoretic, hives amoxicillin Allergy Intermediate HIVES/FACIAL Verified 03/31/19 10:42 SWELLING clavulanic acid Allergy Intermediate HIVES/FACIAL Verified 03/31/19 10:42 SWELLING lisinopril Allergy Intermediate HIVES Verified 03/31/19 10:42 albuterol Allergy Mild proair Verified 03/31/19 10:42 "trouble taking breaths" acetaminophen AdvReac Mild NAUSEA Verified 03/31/19 10:42 Home Medications Home Medications Medication Instructions Recorded Confirmed Type insulin lispro protamine-lispro 40 units SQ BID ml 08/28/18 03/31/19 History 100 unit/mL (50-50) subcutaneous pen esomeprazole magnesium 20 mg 20 mg PO BID cap 09/05/18 03/31/19 History capsule,delayed release aspirin 81 mg tablet,delayed 81 mg PO QAM 09/17/18 03/31/19 History release cholecalciferol (vitamin D3) 25 2,000 units PO BID cap 09/17/18 03/31/19 History mcg (1,000 unit) capsule nitroglycerin [Nitrostat] 0.4 mg SUBLINGUAL UD PRN #100 tab 12/11/18 03/31/19 Rx OneTouch Delica Plus Lancet 30 #400 ea NS 12/23/18 03/31/19 Rx gauge OneTouch Verio #400 ea NS 12/23/18 03/31/19 Rx Trulicity 1.5 mg/0.5 mL 1.5 mg SQ WEEKLY #6 ml NS 12/31/18 03/31/19 Rx subcutaneous pen injector metoprolol succinate 200 mg PO QPM #30 ea 01/19/19 03/31/19 Rx Entresto 1 tab PO QAM 01/26/19 03/31/19 History budesonide [Pulmicort] 0.25 mg NEB UD PRN 01/26/19 03/31/19 History spironolactone [Aldactone] 25 mg PO QAM 01/26/19 03/31/19 History potassium chloride [Klor-Con M20] 40 meq PO QAM 30 Days #60 tab 02/21/19 03/31/19 Rx torsemide 80 mg PO BID 30 Days #240 tab 02/21/19 03/31/19 Rx furosemide 40 mg tablet 40 mg PO BID 02/25/19 03/31/19 History potassium chloride 20 mEq 20 meq PO BID 02/25/19 03/31/19 History tablet,extended release diclofenac sodium 2 gm TOP QID #100 gm 03/22/19 03/31/19 Rx albuterol sulfate 90 mcg/actuation 1 puffs INH QID #18 gm 03/26/19 03/31/19 Rx aerosol inhaler Past Med/Surg History Medical History Acquired claw toe of left foot (Acute) Acquired claw toe of right foot (Acute) Acute on chronic systolic (congestive) heart failure (Chronic) Back pain (Resolved) Bilateral knee pain (Acute) Carpal tunnel syndrome (Acute) Cluster headache (Acute) Cognitive impairment 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 Difficult to manage. Integrated into heart failure clinic. Frequent admissions for heart failure exacerbations. Echo (05/31) EF=25-30% with mod to severe global hypokinesis, basal kelsi-septal akinetic wall, LVH, RVSP elevated at 30-40mmHg, and mod dilated ascending aorta. Managed medically with ASA + BB + ARB/Neprilysin inhibitor (Entresto) + high dose furosemide (160mg BID) + metolazone (3x weekly). Considering ICD given EF. COPD (chronic obstructive pulmonary disease) (Chronic) Depression Depression with anxiety (Acute) Diabetes mellitus with diabetic polyneuropathy (Acute) Diabetes mellitus, type II (Chronic) DM II (diabetes mellitus, type II), controlled Dyslipidemia (Acute) Epidermoid cyst of neck Fatty liver GERD (gastroesophageal reflux disease) GERD (gastroesophageal reflux disease) Hemoptysis HTN (hypertension) Hypertension (Chronic) Learning disability (Resolved) Lung nodule (Acute) Medical non-compliance Mixed hearing loss of left ear (Acute) Morbid obesity (Chronic) BMI> 50 Morbid obesity with BMI of 50.0-59.9, adult Nonischemic cardiomyopathy EF 30-35% Nonischemic cardiomyopathy Obstructive sleep apnea (Chronic) Polysomnography (07/28) with severe mixed osbtructive and central apnea treated with Bipap 27/11 MARIELENA (obstructive sleep apnea) Does not comply with CPAP Peripheral neuropathy (Chronic) 2/2 DM type II. Located on the feet bilaterally. Not requiring medication. Followed by podiatry Right-sided sensorineural hearing loss (Acute) Sinus bradycardia Sinus tachycardia (Acute) TMJ (dislocation of temporomandibular joint) (Acute) Umbilical hernia (Acute) Vitamin D insufficiency Previously deficient, taking Vit D supplementation Surgical History History of carpal tunnel surgery History of cholecystectomy S/P tonsillectomy Family History Father , age 57 of an [place]. 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: No Beliefs That Will Affect Care: None marital status: Current Living Situation: Spouse current occupational status: unemployed Other Information That Helps Us Care for You: No Feels Safe at Home: Yes Safety Concerns: Feels Safe At This Time Smoking Status: Former smoker Tobacco Type: cigarettes ; Age Started Using Tobacco: 14 ; Age Quit Using Tobacco: 18 ; Second Hand Exposure: No ; Hx Alcohol Use: No Hx Substance Use: No Childhood Exposure to Second-Hand Smoke: Yes Dental Care, Regularly: Yes Physical Activity Frequency: Does not Exercise Review of Systems Review of Systems: All systems reviewed & are unremarkable except as noted in HPI & below Physical Exam Physical Exam: General: morbidly obese patient sitting in chair, NAD, non-toxic in appearance, AA&O x 4 Skin: warm, dry, intact, no rashes or lesions, ecchymosis on lower abdomen HEENT: NC/AT, PERRL, EOMI, anicteric sclera, conjunctiva without injection, external ear normal to inspection and nontender, nares patent, moist mucus membranes, dentition intact, no oropharyngeal lesions, neck supple, trachea midline, no LAD, no thyromegaly, no JVD Heart: +S1/S2, regular, no m/r/g Lungs: equal air entry bilaterally, no rales/rhonchi/wheezes Abd: +BS, soft, NT/ND, no masses/organomegaly/ascites Ext: warm, 2+ pulses in UE/LE bilaterally, no clubbing/cyanosis, +edema Neuro: nonfocal, patient AA&O x 4, speech intact, no facial droop, moving all extremities on command with equal strength 5/5 Results & Data Vital Signs (Past 12 Hours) Vital Signs Temp Pulse Pulse Resp BP BP BP 03/31/19 19:23 36.5 C 99 H 20 163/104 H 03/31/19 19:21 95 H 16 03/31/19 18:32 36.8 C 101 H 22 177/103 H 03/31/19 17:14 114 H 193/127 H 03/31/19 15:49 36.4 C L 102 H 20 187/134 H 03/31/19 14:46 101 H 03/31/19 14:40 36.4 C L 100 H 20 198/91 H 03/31/19 14:01 108 H 17 190/137 H 03/31/19 13:11 100 H 20 193/135 H 03/31/19 12:02 100 H 20 194/126 H 03/31/19 11:31 112 H 26 H 176/147 H 03/31/19 11:26 101 H 18 175/149 H Pulse Ox 03/31/19 19:23 93 03/31/19 19:21 95 03/31/19 18:32 92 03/31/19 17:14 03/31/19 15:49 91 03/31/19 14:46 03/31/19 14:40 97 03/31/19 14:01 96 03/31/19 13:11 90 03/31/19 12:02 92 03/31/19 11:31 93 03/31/19 11:26 91 Laboratory Results Lab Results 03/31/19 03/31/19 03/31/19 Range/Units 10:00 10:00 10:00 WBC 9.59 (4.8-10.8) K/uL RBC 4.87 (4.7-6.1) M/uL Hgb 13.9 L (14.0-18.0) g/dL Hct 41.1 L (42-52) % MCV 84.4 (80-100) fL MCH 28.5 (25-34) pg MCHC 33.8 (32-36) g/dL RDW Std Deviation 47.3 H (36.4-46.3) fL RDW Coeff of Zoltan 15.2 H (11.5-14.5) % Plt Count 236 (130-400) K/uL MPV 9.9 (7.4-10.4) fL Immature Gran % (Auto) 0.3 % Neut % (Auto) 71.9 % Lymph % (Auto) 20.4 % Cochran % (Auto) 6.6 % Eos % (Auto) 0.7 % Baso % (Auto) 0.1 % Immature Gran # (Auto) 0.03 H (0.00-0.02) K/uL Neut # (Auto) 6.89 H (1.4-6.5) K/uL Lymph # (Auto) 1.96 (1.2-3.4) K/uL Cochran # (Auto) 0.63 H (0.11-0.59) K/uL Eos # (Auto) 0.07 (0-0.5) K/uL Baso # (Auto) 0.01 (0-0.2) K/uL PT 10.7 (9.0-12.0) Seconds INR 1.0 (0.9-1.1) APTT 27.8 (21.0-31.0) Seconds PTT Ratio 1.0 Sodium 139 (136-145) mmol/L Potassium 4.1 (3.5-5.1) mmol/L Chloride 108 H (98-107) mmol/L Carbon Dioxide 28 (21-32) mmol/L Anion Gap 3.0 (3-11) BUN 9 (7-18) mg/dl Creatinine 0.82 (0.6-1.4) mg/dl Est Cr Clr Drug Dosing 143.8 ml/min Est GFR ( Amer) 126.4 Est GFR (Non-Af Amer) 109.1 BUN/Creatinine Ratio 11.2 (10-20) Glucose 132 H (70-99) mg/dl POC Glucose (70-99) mg/dl Calcium 8.4 L (8.5-10.1) mg/dl Phosphorus (2.5-4.9) mg/dl Magnesium (1.8-2.4) mg/dl Total Bilirubin 0.9 (0.2-1) mg/dl AST 17 (15-37) U/L ALT 33 (12-78) U/L Alkaline Phosphatase 82 (45-117) U/L Troponin I 0.020 (0-0.045) ng/ml NT-Pro-B Natriuret Pep 3092 H (0-450) pg/ml Total Protein 7.1 (6.4-8.2) gm/dl Albumin 3.3 L (3.4-5.0) gm/dl Globulin 3.8 (2.5-4.0) gm/dl Albumin/Globulin Ratio 0.9 (0.9-2) 03/31/19 03/31/19 03/31/19 Range/Units 10:00 16:25 19:05 WBC (4.8-10.8) K/uL RBC (4.7-6.1) M/uL Hgb (14.0-18.0) g/dL Hct (42-52) % MCV (80-100) fL MCH (25-34) pg MCHC (32-36) g/dL RDW Std Deviation (36.4-46.3) fL RDW Coeff of Zoltan (11.5-14.5) % Plt Count (130-400) K/uL MPV (7.4-10.4) fL Immature Gran % (Auto) % Neut % (Auto) % Lymph % (Auto) % Cochran % (Auto) % Eos % (Auto) % Baso % (Auto) % Immature Gran # (Auto) (0.00-0.02) K/uL Neut # (Auto) (1.4-6.5) K/uL Lymph # (Auto) (1.2-3.4) K/uL Cochran # (Auto) (0.11-0.59) K/uL Eos # (Auto) (0-0.5) K/uL Baso # (Auto) (0-0.2) K/uL PT (9.0-12.0) Seconds INR (0.9-1.1) APTT (21.0-31.0) Seconds PTT Ratio Sodium 139 (136-145) mmol/L Potassium 3.8 (3.5-5.1) mmol/L Chloride 105 (98-107) mmol/L Carbon Dioxide 28 (21-32) mmol/L Anion Gap 6.0 (3-11) BUN 10 (7-18) mg/dl Creatinine 1.06 (0.6-1.4) mg/dl Est Cr Clr Drug Dosing 135.2 ml/min Est GFR ( Amer) 99.8 Est GFR (Non-Af Amer) 86.1 BUN/Creatinine Ratio 9.2 L (10-20) Glucose 124 H (70-99) mg/dl POC Glucose 125 H (70-99) mg/dl Calcium 8.8 (8.5-10.1) mg/dl Phosphorus 3.7 (2.5-4.9) mg/dl Magnesium 1.8 (1.8-2.4) mg/dl Total Bilirubin (0.2-1) mg/dl AST (15-37) U/L ALT (12-78) U/L Alkaline Phosphatase (45-117) U/L Troponin I (0-0.045) ng/ml NT-Pro-B Natriuret Pep (0-450) pg/ml Total Protein (6.4-8.2) gm/dl Albumin (3.4-5.0) gm/dl Globulin (2.5-4.0) gm/dl Albumin/Globulin Ratio (0.9-2) / Range/Units 20:06 WBC (4.8-10.8) K/uL RBC (4.7-6.1) M/uL Hgb (14.0-18.0) g/dL Hct (42-52) % MCV (80-100) fL MCH (25-34) pg MCHC (32-36) g/dL RDW Std Deviation (36.4-46.3) fL RDW Coeff of Zoltan (11.5-14.5) % Plt Count (130-400) K/uL MPV (7.4-10.4) fL Immature Gran % (Auto) % Neut % (Auto) % Lymph % (Auto) % Cochran % (Auto) % Eos % (Auto) % Baso % (Auto) % Immature Gran # (Auto) (0.00-0.02) K/uL Neut # (Auto) (1.4-6.5) K/uL Lymph # (Auto) (1.2-3.4) K/uL Cochran # (Auto) (0.11-0.59) K/uL Eos # (Auto) (0-0.5) K/uL Baso # (Auto) (0-0.2) K/uL PT (9.0-12.0) Seconds INR (0.9-1.1) APTT (21.0-31.0) Seconds PTT Ratio Sodium (136-145) mmol/L Potassium (3.5-5.1) mmol/L Chloride (98-107) mmol/L Carbon Dioxide (21-32) mmol/L Anion Gap (3-11) BUN (7-18) mg/dl Creatinine (0.6-1.4) mg/dl Est Cr Clr Drug Dosing ml/min Est GFR ( Amer) Est GFR (Non-Af Amer) BUN/Creatinine Ratio (10-20) Glucose (70-99) mg/dl POC Glucose 127 H (70-99) mg/dl Calcium (8.5-10.1) mg/dl Phosphorus (2.5-4.9) mg/dl Magnesium (1.8-2.4) mg/dl Total Bilirubin (0.2-1) mg/dl AST (15-37) U/L ALT (12-78) U/L Alkaline Phosphatase (45-117) U/L Troponin I (0-0.045) ng/ml NT-Pro-B Natriuret Pep (0-450) pg/ml Total Protein (6.4-8.2) gm/dl Albumin (3.4-5.0) gm/dl Globulin (2.5-4.0) gm/dl Albumin/Globulin Ratio (0.9-2) Diagnostic Findings XR chest 1V portable CLINICAL HISTORY: Dyspnea COMPARISON STUDY: February 17, 2019 FINDINGS: The heart is enlarged. There is radiographic evidence of congestive failure/fluid overload. There are more focal airspace opacities the right lung base. These could represent focal edema, or infectious/inflammatory process. IMPRESSION: 1. Cardiomegaly and radiographic evidence of congestive failure/fluid overload 2. Right basilar airspace opacities, focal edema versus infectious/inflammatory process 3. Clinical and radiographic follow-up is recommended. ACT 112: Negative or not required by law. Electronically signed by: Garrett Muniz M.D. 03/31/2019 10:22 AM Dictated: 03/31/19 1019 Transcribed: 03/31/19 1019 --------- CT ANGIOGRAM OF THE CHEST CLINICAL HISTORY: Shortness of breath. Possible pulmonary embolism. COMPARISON STUDY: February 06, 2019, chest x-ray dated 03/31/2019 TECHNIQUE: Following the IV administration of 118 mL of Optiray-320, CT angiogram of the thorax was performed from the thoracic inlet to the lung bases utilizing the pulmonary embolus protocol. Images are reviewed in the axial, sagittal, and coronal planes. IV contrast was administered without complication. MIP imaging was performed. A dose lowering technique was utilized adhering to the principles of ALARA. CT DOSE: 958.78 mGy.cm FINDINGS: There are scattered mediastinal lymph nodes which are not pathologically enlarged by size criteria. There is no pathologic hilar or axillary lymphadenopathy. There is dilatation of the ascending thoracic aorta which measures 48 mm at the level of the main pulmonary artery. There are no pulmonary artery filling defects to indicate acute pulmonary embolism. There is suboptimal lower lobe pulmonary arterial opacification. There are small bilateral pleural effusions. There is radiographic evidence of congestive failure with septal edema. There are scattered bilateral nodular airspace opacities, pulmonary edema versus pneumonitis. There is respiratory motion artifact. IMPRESSION: 1. No evidence of acute pulmonary embolism given the technical limitations of the study 2. Radiographic evidence of congestive failure with bilateral pleural effusions and mild septal edema 3. Cardiomegaly and mild aneurysmal dilatation of the ascending thoracic aorta which measures 48 mm 4. Multifocal airspace opacities, pulmonary edema versus multifocal pneumonitis. Clinical and radiographic follow-up is recommended. ACT 112: Negative or not required by law. Electronically signed by: Garrett Muniz M.D. 03/31/2019 11:21 AM Dictated: 03/31/19 1116 Transcribed: 02/17/20 1116 ECG Additional Comments: The study shows sinus tachycardia at 105bpm, frequent PVCs. KJ=032, PLJ=538, TLg=631, no acute ischemic changes Code Status & VTE Plan Code Status FULL PG Care Time/CCT Total # of Minutes Spent Total Time Spent with Patient: Total time spent is greater than 50% in sales and catering coordinator rdination of care (as documented) at patient's floor/unit and/or counseling patient: Coding Level of Care Code 96611 OBS Care - Level 3 Diagnoses Syncope R55 Syncope type: unspecified Acute on chronic heart failure with reduced ejection fraction and diastolic dysfunction I50.43 Dilatation of thoracic aorta I77.810 Hypertension I10 Hypertension type: unspecified Morbid obesity E66.01 Diabetes mellitus, type II E11.69; Z79.4 Diabetes mellitus group home insulin use: with group home use Diabetes mellitus complication status: with other specified complication Obstructive sleep apnea G47.33 GERD (gastroesophageal reflux disease) K21.9 Esophagitis presence: without esophagitis COPD (chronic obstructive pulmonary disease) J44.9 COPD type: unspecified COPD (1) Syncope Syncope type: unspecified Qualified Code(s): R55 - Syncope and collapse (2) Hypertension Hypertension type: unspecified Qualified Code(s): I10 - Essential (primary) hypertension (3) Diabetes mellitus, type II Diabetes mellitus group home insulin use: with group home use Diabetes mellitus complication status: with other specified complication Qualified Code(s): E11.69 - Type 2 diabetes mellitus with other specified complication; Z79.4 - care home (current) use of insulin (4) GERD (gastroesophageal reflux disease) Esophagitis presence: without esophagitis Qualified Code(s): K21.9 - Gastro- esophageal reflux disease without esophagitis (5) COPD (chronic obstructive pulmonary disease) COPD type: unspecified COPD Qualified Code(s): J44.9 - Chronic obstructive pulmonary disease, unspecified
[2019-04-01] MEDS: NITROGLYCERIN 2% OINTMENT 30GM TUBE EXT SCH ×3 (00:26→21:34)
--- NOTE | 2019-04-01 06:05 | Electrocardiogram Report ---
Test Reason : Blood Pressure : / mmHG Vent. Rate : 105 BPM Atrial Rate : 105 BPM P-R Int : 160 ms QRS Dur : 100 ms QT Int : 378 ms P-R-T Axes : 046 -09 088 degrees QTc Int : 499 ms Sinus tachycardia with frequent Premature ventricular complexes in a pattern of bigeminy Possible Left atrial enlargement Borderline ECG When compared with ECG of 21-MAR-2019 09:28, Premature ventricular complexes are now Present Confirmed by Abraham Rosen ([id number]) on 04/01/2019 6:04:26 AM Referred By: REFERRED SELF Confirmed By:Abraham Rosen
[2019-04-01 06:40] LABS: Basophils # (auto) 0.02 K/uL (0-0.2); Basophils % (auto) 0.3 %; Eosinophils # (auto) 0.11 K/uL (0-0.5); Eosinophils % (auto) 1.4 %; Hematocrit (blood only) 45.1 % (42-52); Hemoglobin 15.3 g/dL (14.0-18.0); Immature Granulocytes # (auto) 0.04 K/uL (0.00-0.02); Immature Granulocytes % (auto) 0.5 %; Lymphocytes # (auto) 2.39 K/uL (1.2-3.4); Lymphocytes % (auto) 30.6 %; Mean Corpuscular Hemoglobin 28.6 pg (25-34); Mean Corpuscular Hgb Conc 33.9 g/dL (32-36); Mean Corpuscular Volume 84.3 fL (80-100); Mean Platelet Volume 10.2 fL (7.4-10.4); Monocytes # (auto) 0.74 K/uL (0.11-0.59); Monocytes % (auto) 9.5 %; Neutrophils # (auto) 4.51 K/uL (1.4-6.5); Neutrophils % (auto) 57.7 %; Platelet Count 249 K/uL (130-400); RDW Coefficient of Variation 15.2 % (11.5-14.5); RDW Standard Deviation 46.5 fL (36.4-46.3); Red Blood Count 5.35 M/uL (4.7-6.1); White Blood Count 7.81 K/uL (4.8-10.8)
[2019-04-01 07:08] LABS: BUN Creatinine Ratio 8.9 (10-20); Calcium 8.8 mg/dl (8.5-10.1); Est GFR (African American) 108.4; Est GFR (Non-African American) 93.6; Potassium 3.7 mmol/L (3.5-5.1)
[2019-04-01] MEDS: BUDESONIDE 0.25 MG/2 ML VIAL (PULMICORT) INH SCH ×2 (07:09→20:11)
--- NOTE | 2019-04-01 08:11 | XRay Report ---
XR chest 2V PA/lateral HISTORY: Shortness of breath. Congestive heart failure. COMPARISON: Chest CTA 03/31/2019. FINDINGS: No pneumothorax. The heart remains moderately enlarged. Interval improvement in the airspac e opacities and interstitial thickening consistent with resolving pulmonary edema. No pleural effusio ns. IMPRESSION: Cardiomegaly with improvement in the mild interstitial pulmonary edema. ACT 112: Negative or not required by law. Electronically signed by: Andrea Bear M.D. 04/01/2019 8:10 AM
[2019-04-01] MEDS: INSULIN ASPART 100 UNITS/ML 3 ML PEN SC SCH ×4 (08:30→21:19)
[2019-04-01] MEDS: INSULIN HUMAN NPH SC SCH ×2 (08:31→18:20)
[2019-04-01] MEDS: ASPIRIN 81 MG ECTAB PO SCH (08:35)
[2019-04-01] MEDS: SPIRONOLACTONE 25 MG TAB PO SCH (08:35)
[2019-04-01] MEDS: PANTOprazole 40 MG TAB PO SCH ×2 (08:36→21:19)
[2019-04-01] MEDS: SACUBITRIL-VALSARTAN 97-103 MG TAB PO SCH ×2 (08:36→21:18)
[2019-04-01] MEDS: FUROSEMIDE 40 MG in SYRINGE 0 ML IV SCH ×2 (08:37→16:47)
[2019-04-01] MEDS: ALBUTEROL HFA 8 GM INHALER INH SCH ×4 (08:39→21:20)
[2019-04-01] MEDS: DICLOFENAC SOD 1% GEL 100 GM TUBE EXT SCH ×4 (08:40→21:21)
[2019-04-01] MEDS ORDERED: SACUBITRIL-VALSARTAN 97-103 MG TAB PO SCH (09:00)
--- NOTE | 2019-04-01 10:55 | Cardiology Progress Note ---
Date of Service April 01, 2019 Assessment & Plan (1) Acute on chronic heart failure with reduced ejection fraction and diastolic dysfunction: (2) Hypertensive urgency: (3) Noncompliance with medication regimen: (4) NICM (nonischemic cardiomyopathy): (5) Obesity hypoventilation syndrome: I had a long discussion with the patient regarding importance of adherence to his medication regimen. Patient denies noncompliance at this time, however, given presence of tachycardia, weight gain, and progressive signs/symptoms of congestive heart failure - nonadherence is suspected. Blood pressure remains elevated. Add topical nitrates for afterload reduction. Agree with IV diuretic therapy, Lasix 40 mg twice daily. 25 mg of metoprolol tartrate to be given now. Evening dose of Entresto will be given now as well. Utilize IV hydralazine and labetalol as needed to improve blood pressure control acutely. Continue telemetry monitoring. Follow daily weight, fluid balance, GFR, and electrolytes. The indications for ICD implantation were discussed with the patient and his . I explained that ICD implantation is not a substitution for medical therapies/medication adherence. Patient informed that an ICD would not prevent future hospitalizations for decompensated congestive heart failure. In regard to potential syncope, it is unclear whether the patient actually suffered a syncopal episode. Some episodes suggest possible weakness with associated fall. Monitor telemetry for any sustained dysrhythmias. Repeat 2D transthoracic echocardiogram when heart rate, blood pressure, and volume status has stabilized. Subjective Results & Data Vital Signs (Past 12 Hours) Vital Signs Temp Pulse Pulse Resp BP BP Pulse Ox 04/01/19 08:00 72 04/01/19 07:21 36.4 C L 75 20 120/73 93 04/01/19 07:10 62 18 94 04/01/19 04:55 36.4 C L 73 20 129/85 93 04/01/19 00:00 148/94 H 03/31/19 23:53 36.3 C L 72 22 159/118 H 96
--- NOTE | 2019-04-01 11:08 | Cardiology Progress Note ---
Date of Service April 01, 2019 Assessment & Plan (1) Acute on chronic heart failure with reduced ejection fraction and diastolic dysfunction: (2) Hypertensive urgency: (3) Noncompliance with medication regimen: (4) NICM (nonischemic cardiomyopathy): (5) Obesity hypoventilation syndrome: Patient diuresed significantly overnight. 7 L, down 8 kg with interval improvement in volume status on exam and chest xray patient denies improvement in his symptoms. continues to report SOB/orthopnea. HR's and BP improved with resumption of oral Meds and IV diuretics. Non compliance the likely issue. Continue IV diuretics today. D/C nitro paste as patient is refusing and BP has improved. Update echo now that patient's HR and BP have improved. monitor I+O's low sodium diet encouraged. Case discussed with Dr. Ca. Will follow. Supervising Physician Co-Signing Physician Notes Patient was seen and personally examined. Clinically improving from a heart failure standpoint. Notes episodes of dizziness or "blacking out" but no correlation on monitor. Patient did have one episode of nonsustained ventricular tachycardia this afternoon, 8 beats in duration without patient symptom or complaint Plan: Continue as above optimization of medical therapies and diuresis. Additional 50 mg Toprol p.o. to be given today an additional potassium supplement ordered Discussed pacemakers and defibrillators with patient noting prophylactic effect in his case with no obvious therapeutic aid. Will follow QRS duration as patient diuresis Marcus THOMPSON Subjective Patient evaluated this morning and reports feeling poorly. He reports ongoing episodes where he "blacks out". [place] reports he apparently had an episode last evening where he was confused and found on the bathroom floor. I spoke with the nursing staff who is unaware of this occurrence. He also reports he had a "mild episode this morning". He reports ongoing shortness of breath with orthopnea.Per chart review, he diuresed nearly 7 L overnight. He is down 8 kg.Chest x-ray shows interval improvement in pulmonary edema. Heart rate and blood pressure improved with resumption of oral medications suggesting noncompliance. Telemetry reviewed, demonstrating normal sinus rhythm without concerning arrhythmias. He seems fixated on getting an ICD this admission, as this will "cure all his problems". Review of Systems Review of Systems: All systems reviewed & are unremarkable except as noted in HPI & below Physical Exam Constitutional: WD/WN, vitals as above + morbidly obese; no acute distress Respiratory: Auscultation: + diminished lung sounds; no crackles and no rales Cardiovascular: Rate/Rhythm: regular rate and regular rhythm Heart Sounds: no murmur (No audible murmurs.) Extremities: no edema Gastrointestinal (Abdomen): obese. + BS, no tenderness Neurologic: PERRL, EOMI, accommodation nl, no face palsy, no dysarthria Results & Data Vital Signs (Past 12 Hours) Vital Signs Temp Pulse Pulse Resp BP BP Pulse Ox 04/01/19 08:00 72 04/01/19 07:21 36.4 C L 75 20 120/73 93 04/01/19 07:10 62 18 94 04/01/19 04:55 36.4 C L 73 20 129/85 93 04/01/19 00:00 148/94 H 03/31/19 23:53 36.3 C L 72 22 159/118 H 96
[2019-04-01] MEDS ORDERED: PERFLUTREN LIPID MICROSPHERE (DEFINITY) IV ONE (11:20)
[2019-04-01] MEDS ORDERED: METOPROLOL SUCC 50MG EXT REL TAB PO ONE (14:30)
[2019-04-01] MEDS ORDERED: POTASSIUM CHLORIDE 20 MEQ TABCR PO ONE (14:30)
--- NOTE | 2019-04-01 15:08 | Hospitalist Progress Note ---
Date of Service April 01, 2019 Assessment & Plan (1) Syncope: Patient with possible syncopal events. CTA without PE. EKG with no acute ischemic changes. Electrolytes are within normal limits. Orthostatic vital signs are normal. - Cardiology consultation appreciated - Wide-complex tachycardia seen on monitor -> NPO at midnight in case cardiology feels any procedure is needed. (2) Acute on chronic heart failure with reduced ejection fraction and diastolic dysfunction: Patient endorses orthopnea/edema/SOB and BRISCOE. Elevated BNP = 3092. Imaging suggestive of pulmonary edema. - Lasix 40mg IV BID - He is net -6L and down approx. 9 kg from admission. - Repeat echocardiogram when medically optimized - Continue Entresto, beta-mansoor, spironolactone (3) Dilatation of thoracic aorta: Noted on imaging. - Should be followed outpatient (4) Diabetes mellitus, type II: Blood sugar presently 132. - NPH 12u BID - Sliding scale insulin - Sugars at goal today. Will defer glycemic consult at this time. (5) Hypertension: Patient's BP is 150/95. - Continue Metoprolol, Spironolactone, Entresto - Hydralazine 10mg IV q 4 hours as needed for BP > 180/110 (6) Morbid obesity: Noted. - Daily weights as above (7) Obstructive sleep apnea: MARIELENA/Obesity hypoventilation syndrome. Patient reports non-compliance with BiPAP at home. Could be contributing greatly to labile blood pressures and decompensation of HFrEF. - BiPAP 16/10 qHS (8) GERD (gastroesophageal reflux disease): Chronic. - Continue Protonix 40mg po BID (9) COPD (chronic obstructive pulmonary disease): Chronic. No active wheezing at present. - Continue Pulmicort - Continue Albuterol (10) DVT prophylaxis: SCDs - Will defer heparin for now given possible procedure and hemoptysis Admission and Anticipated Discharge Date Admission Date: March 31, 2019 Subjective Has a variety of concerns today. 1) Right ankle pain -> Sharp, stabbing. Hard to put weight on. 2) Hemoptysis - Consistent with his long-term issues 3) Syncope - Reports having passed out 3 times on Sunday and Sunday each, then last evening in the hospital. Says he wakes up and doesn't know where he is. 4) Regurgitation - Reports he has to take very small bites and even then will regurgitate food afterward. 5) Reports he is passing "black balls" of stool that he believe is his liver. Physical Exam Constitutional: WD/WN, vitals as above + morbidly obese and cooperative; not lethargic Eyes: EOM intact bilaterally; no conjunctival abnormality ENMT: external ear and nose normal, oropharynx normal Neck: trachea midline, no thyromegaly normal visual inspection Respiratory: normal respiratory effort, lungs clear to auscultation no respiratory distress Cardiovascular: RRR, no murmur, no edema Gastrointestinal (Abdomen): Inspection/Auscultation: abdomen normal to inspection; abdomen not distended Musculoskeletal: no cyanosis or clubbing, extremities motor strength 5/5 Skin: no rashes, warm and dry Neurologic: moves all extremities and awake Psychiatric: Orientation: alert, oriented to person and cooperative Results & Data ([facility]) Vital Signs (Past 12 Hours) Vital Signs Temp Pulse Pulse Resp BP BP Pulse Ox 04/01/19 11:42 36.5 C 84 22 148/94 H 91 04/01/19 08:00 72 04/01/19 07:21 36.4 C L 75 20 120/73 93 04/01/19 07:10 62 18 94 04/01/19 04:55 36.4 C L 73 20 129/85 93 PG Care Time/CCT Total # of Minutes Spent Total Time Spent with Patient: Total time spent is greater than 50% in coordination of care (as documented) at patient's floor/unit and/or counseling patient: Coding Level of Care Code 56336 Subseq Hosp Care Lvl 3 Diagnoses Syncope R55 Syncope type: unspecified Acute on chronic heart failure with reduced ejection fraction and diastolic dysfunction I50.43 Dilatation of thoracic aorta I77.810 Diabetes mellitus, type II E11.69; Z79.4 Diabetes mellitus [facility] insulin use: with [facility] use Diabetes mellitus complication status: with other specified complication Hypertension I10 Hypertension type: unspecified Morbid obesity E66.01 Obstructive sleep apnea G47.33 GERD (gastroesophageal reflux disease) K21.9 Esophagitis presence: without esophagitis COPD (chronic obstructive pulmonary disease) J44.9 COPD type: unspecified COPD DVT prophylaxis Z29.9 (1) Syncope Syncope type: unspecified Qualified Code(s): R55 - Syncope and collapse (2) Hypertension Hypertension type: unspecified Qualified Code(s): I10 - Essential (primary) hypertension (3) Diabetes mellitus, type II Diabetes mellitus [facility]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
[2019-04-01] MEDS ORDERED: Nursing to Pharmacy Communication ONE (16:12)
[2019-04-01] MEDS ORDERED: POTASSIUM CHLORIDE PWD 20 MEQ PACK PO ONE (16:30)
[2019-04-01 19:49] LABS: BUN Creatinine Ratio 11.5 (10-20); Calcium 8.3 mg/dl (8.5-10.1); Creatinine Clr Calc Pharmacy 115.5 ml/min; Est GFR (African American) 85.9; Est GFR (Non-African American) 74.1; Potassium 4.3 mmol/L (3.5-5.1)
--- NOTE | 2019-04-01 19:57 | XRay Report ---
XR ankle RT min 3V routine CLINICAL HISTORY: Ankle pain with ambulation COMPARISON: December 2018 DISCUSSION: No acute fractures or subluxations are visualized. There is a corticated ossicle adjacent to the medial malleolar tip. This is felt to be old. There is no evidence for erosive disease. IMPRESSION: Stable corticated bony density adjacent the medial malleolar tip. No acute findings. No f ractures. No erosive or destructive lesions are visualized ACT 112: Negative or not required by law. Electronically signed by: Garrett Muniz M.D. 04/01/2019 7:55 PM
--- NOTE | 2019-04-01 20:55 | Electrocardiogram Report ---
Test Reason : Blood Pressure : / mmHG Vent. Rate : 103 BPM Atrial Rate : 103 BPM P-R Int : 160 ms QRS Dur : 102 ms QT Int : 394 ms P-R-T Axes : 044 009 144 degrees QTc Int : 516 ms Sinus tachycardia with occasional Premature ventricular complexes Possible Left atrial enlargement Abnormal ECG When compared with ECG of 31-MAR-2019 09:27, No significant change was found Confirmed by Abraham Rosen ([id number]) on 04/01/2019 8:55:09 PM Referred By: REFERRED SELF Confirmed By:Abraham Rosen
[2019-04-01] MEDS ORDERED: MoRPHine SULFATE 2 MG/ML CARP IV STA (21:12)
--- NOTE | 2019-04-01 21:15 | Communication Note ---
Date of Service: April 01, 2019 Pt complaining of L chest pain in chest and to arm. SoB at basline,pt feels SoB is still present and unchanging. No diaphoresis. Pain reproducable on palpation and movement of L arm. ECG with no acute changes compared to prior, flipped T waves in V2, AbL are present. No ST segment changes. Nitropaste .5inch, morphine 1mg for given and trop x3 ordered given pt history and comorbidity, reproducible pain on light palpation/movement suggests noncardiac. Voltarin ordered.
[2019-04-01] MEDS: METOPROLOL SUCC 50MG EXT REL TAB PO SCH (21:18)
[2019-04-01] MEDS: ACETAMINOPHEN 325 MG TAB PO PRN (21:20)
[2019-04-02] MEDS: NITROGLYCERIN 2% OINTMENT 30GM TUBE EXT SCH ×4 (03:20→21:27)
[2019-04-02 03:28] LABS: Hematocrit (blood only) 46.4 % (42-52); Hemoglobin 15.9 g/dL (14.0-18.0); Mean Corpuscular Hemoglobin 28.8 pg (25-34); Mean Corpuscular Hgb Conc 34.3 g/dL (32-36); Mean Corpuscular Volume 84.1 fL (80-100); Mean Platelet Volume 10.2 fL (7.4-10.4); Platelet Count 273 K/uL (130-400); RDW Coefficient of Variation 15.2 % (11.5-14.5); RDW Standard Deviation 46.6 fL (36.4-46.3); Red Blood Count 5.52 M/uL (4.7-6.1); White Blood Count 10.64 K/uL (4.8-10.8)
[2019-04-02 03:47] LABS: Blood Urea Nitrogen 17 mg/dl (7-18); Calcium 8.7 mg/dl (8.5-10.1); Carbon Dioxide 26 mmol/L (21-32); Chloride 106 mmol/L (98-107); Creatinine Clr Calc Pharmacy 105.8 ml/min; Est GFR (African American) 77.3; Est GFR (Non-African American) 66.7; Glucose 124 mg/dl (70-99); Magnesium 2.1 mg/dl (1.8-2.4); Potassium 3.8 mmol/L (3.5-5.1); Sodium 138 mmol/L (136-145)
[2019-04-02 03:56] LABS: Phosphorus 4.8 mg/dl (2.5-4.9); Troponin I < 0.015 ng/ml (0-0.045)
[2019-04-02] MEDS: ACETAMINOPHEN 325 MG TAB PO PRN (04:59)
[2019-04-02] MEDS: BUDESONIDE 0.25 MG/2 ML VIAL (PULMICORT) INH SCH ×2 (07:24→19:12)
[2019-04-02] MEDS: INSULIN ASPART 100 UNITS/ML 3 ML PEN SC SCH ×5 (08:27→21:20)
[2019-04-02] MEDS: ALBUTEROL HFA 8 GM INHALER INH SCH ×4 (08:28→21:18)
[2019-04-02] MEDS: DICLOFENAC SOD 1% GEL 100 GM TUBE EXT SCH ×6 (08:29→21:19)
[2019-04-02] MEDS: INSULIN HUMAN NPH SC SCH ×2 (08:54→16:41)
--- NOTE | 2019-04-02 12:40 | Cardiology Progress Note ---
Date of Service April 02, 2019 Assessment & Plan (1) Acute on chronic heart failure with reduced ejection fraction and diastolic dysfunction: (2) Hypertensive urgency: (3) Noncompliance with medication regimen: (4) NICM (nonischemic cardiomyopathy): (5) Obesity hypoventilation syndrome: Indication for ICD implantation discussed with patient. I explained again, that there would be no therapeutic effect of this procedure, however, there would be prophylactic benefits in regard to treatment of potential lethal dysrhythmias. Again, I discussed the importance of adherence to current medication regimen. I explained that his heart function would likely improve if he would take med ications as prescribed over a 6 to 12-week period. He voiced understanding, however, his insight is limited. Agree with holding diuretic therapy at this time due to significant diuresis/weight loss since admission. Recommend avoidance of NSAIDs. Repeat basic metabolic panel in a.m. Further recommendations pending electrophysiology evaluation. Subjective Patient seen and examined the bedside. Volume status improved since admission. Weight is down 10 kg. Edema has greatly improved. Patient lying flat without dyspnea. Reports 2 episodes of "passing out" today while seated in chair. Telemetry reveals sinus rhythm with occasional PVCs. No recurrent ventricular tachycardia. Additional 50 mg of metoprolol added yesterday. Occasional sinus bradycardia with heart rate as low as 36 bpm recorded overnight. No significant pauses. Patient denies chest pain or palpitations. No visual disturbance, focal weakness, slurred speech, or paresthesias Review of Systems Review of Systems: All systems reviewed & are unremarkable except as noted in HPI & below Physical Exam Constitutional: well developed, well nourished and + morbidly obese Respiratory: normal respiratory effort; no respiratory distress, no labored breathing, no retractions, does not use accessory muscles and no cough Auscultation: + diminished lung sounds (Bases bilaterally); no rales (Bases bilaterally), no rhonchi and no wheezes Cardiovascular: Rate/Rhythm: regular rate and + tachycardic Heart Sounds: normal S1 and normal S2; no murmur and no cardiac rub Vessels: no JVD (Difficult to assess due to body habitus. No visible JVD in the upright position) and no carotid bruit Extremities: no edema Skin: no rashes, warm and dry Neurologic: moves all extremities; no focal motor deficits Psychiatric: A+Ox3, euthymic affect Insight: + poor insight Judgement: + limited judgement Results & Data Vital Signs (Past 12 Hours) Vital Signs Temp Pulse Resp BP Pulse Ox 04/02/19 11:49 36.3 C L 72 20 120/82 90 04/02/19 07:33 36.7 C 70 20 104/66 98 04/02/19 07:25 88 18 95 04/02/19 04:00 36.4 C L 61 20 118/78 91
[2019-04-02] MEDS: PANTOprazole 40 MG TAB PO SCH ×2 (14:11→21:19)
[2019-04-02] MEDS: SACUBITRIL-VALSARTAN 97-103 MG TAB PO SCH ×3 (14:11→21:14)
[2019-04-02] MEDS: SPIRONOLACTONE 25 MG TAB PO SCH ×2 (14:11→14:22)
[2019-04-02] MEDS: ASPIRIN 81 MG ECTAB PO SCH ×2 (14:11→15:52)
[2019-04-02] MEDS: MICONAZOLE NITRATE POWDER 43 GM EXT PRN (14:12)
[2019-04-02] MEDS ORDERED: Nursing to Pharmacy Communication ONE (14:37)
--- NOTE | 2019-04-02 14:44 | Hospitalist Progress Note ---
Date of Service April 02, 2019 Assessment & Plan (1) Syncope: Patient with possible syncopal events. CTA without PE. EKG with no acute ischemic changes. Electrolytes are within normal limits. Orthostatic vital signs are normal. - Cardiology consultation appreciated - Wide-complex tachycardia seen on monitor -> Discussed with Dr. López today. Plan to engage EP for possible ICD today or tomorrow. (2) Acute on chronic heart failure with reduced ejection fraction and diastolic dysfunction: Patient endorses orthopnea/edema/SOB and BRISCOE. Elevated BNP = 3092. Imaging suggestive of pulmonary edema. - Continue Entresto, beta-amnsoor, spironolactone - Hold Lasix today as he is NPO. Weight is now down to baseline 150.9 kg. Net negative -9L. (3) Dilatation of thoracic aorta: Noted on imaging. - Should be followed outpatient (4) Diabetes mellitus, type II: Blood sugar presently 132. - NPH 12u BID -> Lowered today for being NPO. - Sliding scale insulin - Sugars at goal today still. (5) Hypertension: Patient's BP is 120/85. - Continue Metoprolol, Spironolactone, Entresto - Hydralazine 10mg IV q 4 hours as needed for BP > 180/110 (6) Morbid obesity: Noted. - Daily weights as above (7) Obstructive sleep apnea: MARIELENA/Obesity hypoventilation syndrome. Patient reports non-compliance with BiPAP at home. Could be contributing greatly to labile blood pressures and decompensation of HFrEF. - BiPAP 16/10 qHS (8) GERD (gastroesophageal reflux disease): Chronic. - Continue Protonix 40mg po BID (9) COPD (chronic obstructive pulmonary disease): Chronic. No active wheezing at present. - Continue Pulmicort - Continue Albuterol (10) DVT prophylaxis: SCDs - Will defer heparin for now given possible procedure and hemoptysis Admission and Anticipated Discharge Date Admission Date: April 02, 2019 Subjective Breathing better. No major ankle pain. He reports he "passed out" 2-3 times today, but no one has noted this. Reports some left chest and arm pain overnight, but this has improved this morning. Reports no fevers/chills, chest pain, abdominal pain, nausea, or vomiting. Physical Exam Constitutional: WD/WN, vitals as above + morbidly obese and cooperative; not lethargic Eyes: EOM intact bilaterally; no conjunctival abnormality ENMT: external ear and nose normal, oropharynx normal Neck: trachea midline, no thyromegaly normal visual inspection Respiratory: normal respiratory effort, lungs clear to auscultation no respiratory distress Cardiovascular: RRR, no murmur, no edema Gastrointestinal (Abdomen): Inspection/Auscultation: abdomen normal to inspection; abdomen not distended Musculoskeletal: no cyanosis or clubbing, extremities motor strength 5/5 Skin: no rashes, warm and dry Neurologic: moves all extremities and awake Psychiatric: Orientation: alert, oriented to person and cooperative Results & Data ([facility]) Vital Signs (Past 12 Hours) Vital Signs Temp Pulse Pulse Resp BP Pulse Ox 04/02/19 11:49 36.3 C L 72 20 120/82 90 04/02/19 07:33 36.7 C 70 20 104/66 98 04/02/19 07:25 88 18 95 04/02/19 07:00 64 04/02/19 04:00 36.4 C L 61 20 118/78 91 PG Care Time/CCT Total # of Minutes Spent Total Time Spent with Patient: Total time spent is greater than 50% in coordination of care (as documented) at patient's floor/unit and/or counseling patient: Coding Level of Care Code 16432 Subseq Hosp Care Lvl 3 Diagnoses Syncope R55 Syncope type: unspecified Acute on chronic heart failure with reduced ejection fraction and diastolic dysfunction I50.43 Dilatation of thoracic aorta I77.810 Diabetes mellitus, type II E11.69; Z79.4 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 Diabetes mellitus complication status: with other specified complication Hypertension I10 Hypertension type: unspecified Morbid obesity E66.01 Obstructive sleep apnea G47.33 GERD (gastroesophageal reflux disease) K21.9 Esophagitis presence: without esophagitis COPD (chronic obstructive pulmonary disease) J44.9 COPD type: unspecified COPD DVT prophylaxis Z29.9 (1) Syncope Syncope type: unspecified Qualified Code(s): R55 - Syncope and collapse (2) Diabetes mellitus, type II Diabetes mellitus [facility] insulin use: with [facility] use Diabetes mellitus complication status: with other specified complication Qualified Code(s): E11.69 - Type 2 diabetes mellitus with other specified complication; 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
--- NOTE | 2019-04-02 16:26 | Cardiology Consultation ---
Date of Consultation April 02, 2019 Assessment & Plan (1) Acute on chronic heart failure with reduced ejection fraction and diastolic dysfunction: (2) Hypertensive urgency: (3) Noncompliance with medication regimen: (4) NICM (nonischemic cardiomyopathy): (5) Obesity hypoventilation syndrome: Pt with NICM narrow QRS so only qualifies for single chamber ICD. I reviewed the procedure and potential risks of the procedure with the patient today as well as emphasized the importance of follow up, taking his medications and personal hygiene. Pt expressed an understanding and wishes to proceed Given pt's history of noncompliance and no show on appointments we will arrange to perform the ICD as an inpateint on Tuesday 04/04 around 1pm. NPO after midnight 04/04 He needs a shower on and chlorhexidine wipes to be washed on his chest night and Sunday morning. History of Present Illness Reason for Consultation: NIC Requesting Physician: David Attending Physician: Mynor Hunt MD History of Present Illness Pt admitted with worsening SOB a/w BRISCOE and orthopnea, worse with exertion, improved with diuretics. severity high He has geen successfully diuresed and EP has been consulted to consider ICD as an inpatient due to patient's history of noncompliance Allergies Allergy/AdvReac Type Severity Reaction Status Date / Time ceftriaxone Allergy Severe SHORTNESS Verified 03/31/19 10:42 OF BREATH lidocaine Allergy Severe SHORTNESS Verified 03/31/19 10:42 OF BREATH, diaphoretic, hives procaine Allergy Severe SHORTNESS Verified 03/31/19 10:42 OF BREATH, diaphoretic, hives amoxicillin Allergy Intermediate HIVES/FACIAL Verified 03/31/19 10:42 SWELLING clavulanic acid Allergy Intermediate HIVES/FACIAL Verified 03/31/19 10:42 SWELLING lisinopril Allergy Intermediate HIVES Verified 03/31/19 10:42 albuterol Allergy Mild proair Verified 03/31/19 10:42 "trouble taking breaths" acetaminophen AdvReac Mild NAUSEA Verified 03/31/19 10:42 Home Medications Home Medications Medication Instructions Recorded Confirmed Type insulin lispro protamine-lispro 40 units SQ BID ml 08/28/18 03/31/19 History 100 unit/mL (50-50) subcutaneous pen esomeprazole magnesium 20 mg 20 mg PO BID cap 09/05/18 03/31/19 History capsule,delayed release aspirin 81 mg tablet,delayed 81 mg PO QAM 09/17/18 03/31/19 History release cholecalciferol (vitamin D3) 25 2,000 units PO BID cap 09/17/18 03/31/19 History mcg (1,000 unit) capsule nitroglycerin [Nitrostat] 0.4 mg SUBLINGUAL UD PRN #100 tab 12/11/18 03/31/19 Rx OneTouch Delica Plus Lancet 30 #400 ea NS 12/23/18 03/31/19 Rx gauge OneTouch Verio #400 ea NS 12/23/18 03/31/19 Rx Trulicity 1.5 mg/0.5 mL 1.5 mg SQ WEEKLY #6 ml NS 12/31/18 03/31/19 Rx subcutaneous pen injector metoprolol succinate 200 mg PO QPM #30 ea 01/19/19 03/31/19 Rx Entresto 1 tab PO QAM 01/26/19 03/31/19 History budesonide [Pulmicort] 0.25 mg NEB UD PRN 01/26/19 03/31/19 History spironolactone [Aldactone] 25 mg PO QAM 01/26/19 03/31/19 History potassium chloride [Klor-Con M20] 40 meq PO QAM 30 Days #60 tab 02/21/19 03/31/19 Rx torsemide 80 mg PO BID 30 Days #240 tab 02/21/19 03/31/19 Rx furosemide 40 mg tablet 40 mg PO BID 02/25/19 03/31/19 History potassium chloride 20 mEq 20 meq PO BID 02/25/19 03/31/19 History tablet,extended release diclofenac sodium 2 gm TOP QID #100 gm 03/22/19 03/31/19 Rx albuterol sulfate 90 mcg/actuation 1 puffs INH QID #18 gm 03/26/19 03/31/19 Rx aerosol inhaler Patient History Medical History Acquired claw toe of left foot (Acute) Acquired claw toe of right foot (Acute) Acute on chronic systolic (congestive) heart failure (Chronic) Back pain (Resolved) Bilateral knee pain (Acute) Carpal tunnel syndrome (Acute) Cluster headache (Acute) Cognitive impairment 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 Difficult to manage. Integrated into heart failure clinic. Frequent admissions for heart failure exacerbations. Echo (05/31) EF=25-30% with mod to severe global hypokinesis, basal kelsi-septal akinetic wall, LVH, RVSP elevated at 30-40mmHg, and mod dilated ascending aorta. Managed medically with ASA + BB + ARB/Neprilysin inhibitor (Entresto) + high dose furosemide (160mg BID) + metolazone (3x weekly). Considering ICD given EF. COPD (chronic obstructive pulmonary disease) (Chronic) Depression Depression with anxiety (Acute) Diabetes mellitus with diabetic polyneuropathy (Acute) Diabetes mellitus, type II (Chronic) DM II (diabetes mellitus, type II), controlled Dyslipidemia (Acute) Epidermoid cyst of neck Fatty liver GERD (gastroesophageal reflux disease) GERD (gastroesophageal reflux disease) Hemoptysis HTN (hypertension) Hypertension (Chronic) Learning disability (Resolved) Lung nodule (Acute) Medical non-compliance Mixed hearing loss of left ear (Acute) Morbid obesity (Chronic) BMI> 50 Morbid obesity with BMI of 50.0-59.9, adult Nonischemic cardiomyopathy EF 30-35% Nonischemic cardiomyopathy Obstructive sleep apnea (Chronic) Polysomnography (07/28) with severe mixed osbtructive and central apnea treated with Bipap 27/11 MARIELENA (obstructive sleep apnea) Does not comply with CPAP Peripheral neuropathy (Chronic) 2/2 DM type II. Located on the feet bilaterally. Not requiring medication. Followed by podiatry Right-sided sensorineural hearing loss (Acute) Sinus bradycardia Sinus tachycardia (Acute) TMJ (dislocation of temporomandibular joint) (Acute) Umbilical hernia (Acute) Vitamin D insufficiency Previously deficient, taking Vit D supplementation Surgical History History of carpal tunnel surgery History of cholecystectomy S/P tonsillectomy Family History Father , age 57 of [address]. Heart disease Myocardial infarction Mother , age 67 of a ruptured neck vessel Sudden Other Depression Lung disease No pertinent family history Denies family history of Ovarian cancer Prostate cancer Breast cancer Colorectal cancer Social History Preferred Language: Kitt[place] Communication Ability: Effective Visual Impairment: No Limitations Hearing Ability: Normal Bariatric Program Coordinator Required: No Beliefs That Will Affect Care: None marital status: Current Living Situation: Spouse current occupational status: unemployed Other Information That Helps Us Care for You: No Feels Safe at Home: Yes Safety Concerns: Feels Safe At This Time Smoking Status: Former smoker Tobacco Type: cigarettes ; Age Started Using Tobacco: 14 ; Age Quit Using Tobacco: 18 ; Second Hand Exposure: No ; Hx Alcohol Use: No Hx Substance Use: No Childhood Exposure to Second-Hand Smoke: Yes Dental Care, Regularly: Yes Physical Activity Frequency: Does not Exercise Review of Systems Review of Systems: All systems reviewed & are unremarkable except as noted in HPI & below Physical Exam Physical Exam: aaox3, NAD NC/AT, EOMI Supple No JVD Nrl S1/S2, No murmur CTA b/l no w/r/r soft nt/nd no LE edema b/l skin intact no focal deficits Results & Data ([facility]) Vital Signs (Past 12 Hours) Vital Signs Temp Pulse Pulse Resp BP BP Pulse Ox 04/02/19 15:51 36.4 C L 84 20 89/67 L 96 04/02/19 11:49 36.3 C L 72 20 120/82 90 04/02/19 07:33 36.7 C 70 20 104/66 98 04/02/19 07:25 88 18 95 04/02/19 07:00 64 Telemetry: SR with brief NSVT about 8 beats ECG: SR 79bpm nomarl QRS duration Echo: EF 35%
[2019-04-02] MEDS: METOPROLOL SUCC 50MG EXT REL TAB PO SCH (21:52)
--- NOTE | 2019-04-03 00:16 | Electrocardiogram Report ---
Test Reason : Blood Pressure : / mmHG Vent. Rate : 076 BPM Atrial Rate : 076 BPM P-R Int : 156 ms QRS Dur : 102 ms QT Int : 434 ms P-R-T Axes : 007 -06 105 degrees QTc Int : 488 ms Poor data quality, interpretation may be adversely affected Normal sinus rhythm Septal infarct , age undetermined Prolonged QT T wave abnormality, consider lateral ischemia Abnormal ECG When compared with ECG of 31-MAR-2019 14:07, Premature ventricular complexes are no longer Present Septal infarct is now Present Confirmed by Abraham Rosen ([id number]) on 04/03/2019 12:16:02 AM Referred By: REFERRED SELF Confirmed By:Abraham Rosen
[2019-04-03] MEDS: NITROGLYCERIN 2% OINTMENT 30GM TUBE EXT SCH ×2 (03:38→08:56)
[2019-04-03] MEDS: BUDESONIDE 0.25 MG/2 ML VIAL (PULMICORT) INH SCH ×2 (06:59→20:19)
[2019-04-03 08:33] LABS: Hematocrit (blood only) 46.2 % (42-52); Hemoglobin 15.2 g/dL (14.0-18.0); Mean Corpuscular Hemoglobin 28.2 pg (25-34); Mean Corpuscular Hgb Conc 32.9 g/dL (32-36); Mean Corpuscular Volume 85.7 fL (80-100); Mean Platelet Volume 10.2 fL (7.4-10.4); Platelet Count 235 K/uL (130-400); RDW Coefficient of Variation 15.4 % (11.5-14.5); RDW Standard Deviation 48.3 fL (36.4-46.3); Red Blood Count 5.39 M/uL (4.7-6.1); White Blood Count 7.93 K/uL (4.8-10.8)
[2019-04-03] MEDS: MICONAZOLE NITRATE POWDER 43 GM EXT PRN (08:40)
[2019-04-03] MEDS: DICLOFENAC SOD 1% GEL 100 GM TUBE EXT SCH ×4 (08:40→21:39)
[2019-04-03] MEDS: ALBUTEROL HFA 8 GM INHALER INH SCH ×4 (08:40→21:40)
[2019-04-03] MEDS: ASPIRIN 81 MG ECTAB PO SCH (08:41)
[2019-04-03] MEDS: SACUBITRIL-VALSARTAN 97-103 MG TAB PO SCH ×2 (08:41→21:38)
[2019-04-03] MEDS: SPIRONOLACTONE 25 MG TAB PO SCH (08:41)
[2019-04-03] MEDS: INSULIN ASPART 100 UNITS/ML 3 ML PEN SC SCH ×4 (08:42→21:12)
[2019-04-03] MEDS: INSULIN HUMAN NPH SC SCH ×2 (08:43→17:27)
[2019-04-03] MEDS: PANTOprazole 40 MG TAB PO SCH ×2 (08:47→21:38)
[2019-04-03 09:08] LABS: BUN Creatinine Ratio 17.7 (10-20); Calcium 8.6 mg/dl (8.5-10.1); Creatinine Clr Calc Pharmacy 99.4 ml/min; Est GFR (African American) 71.9; Est GFR (Non-African American) 62.1; Magnesium 2.1 mg/dl (1.8-2.4)
[2019-04-03 09:10] LABS: Phosphorus 3.9 mg/dl (2.5-4.9)
--- NOTE | 2019-04-03 11:49 | Hospitalist Progress Note ---
Date of Service April 03, 2019 Assessment & Plan (1) Syncope: Patient with possible syncopal events. CTA without PE. EKG with no acute ischemic changes. Electrolytes are within normal limits. Orthostatic vital signs are normal. - Cardiology consultation appreciated - Wide-complex tachycardia seen on monitor -> Will get ICD tomorrow. (2) Acute on chronic heart failure with reduced ejection fraction and diastolic dysfunction: Patient endorses orthopnea/edema/SOB and BRISCOE. Elevated BNP = 3092. Imaging suggestive of pulmonary edema. - Continue Entresto, beta-mansoor, spironolactone - Will get 1 dose of Lasix today as he has started to have his weight come back up. (3) Dilatation of thoracic aorta: Noted on imaging. - Should be followed outpatient (4) Diabetes mellitus, type II: Blood sugars were at goal yesterday. - NPH 12u BID - Sliding scale insulin - Will lower tomorrow morning's dose to avoid low blood sugar for his ICD. (5) Hypertension: Patient's BP is 113/80. - Continue Metoprolol, Spironolactone, Entresto - Hydralazine 10mg IV q 4 hours as needed for BP > 180/110 (6) Morbid obesity: Noted. - Daily weights as above (7) Obstructive sleep apnea: MARIELENA/Obesity hypoventilation syndrome. Patient reports non-compliance with BiPAP at home. Could be contributing greatly to labile blood pressures and decompensation of HFrEF. - BiPAP 16/10 qHS (8) GERD (gastroesophageal reflux disease): Chronic. - Continue Protonix 40mg po BID (9) COPD (chronic obstructive pulmonary disease): Chronic. No active wheezing at present. - Continue Pulmicort - Continue Albuterol (10) DVT prophylaxis: SCDs - Will defer heparin for now given ICD tomorrow. Admission and Anticipated Discharge Date Admission Date: April 02, 2019 Subjective Feels great today. Is very excited about his ICD tomorrow. Reports no fevers/chills, chest pain, shortness of breath, abdominal pain, nausea, or vomiting. Physical Exam Constitutional: WD/WN, vitals as above + morbidly obese and cooperative; not lethargic Eyes: EOM intact bilaterally; no conjunctival abnormality ENMT: external ear and nose normal, oropharynx normal Neck: trachea midline, no thyromegaly normal visual inspection Respiratory: normal respiratory effort, lungs clear to auscultation no respiratory distress Cardiovascular: RRR, no murmur, no edema Gastrointestinal (Abdomen): Inspection/Auscultation: abdomen normal to inspection; abdomen not distended Musculoskeletal: no cyanosis or clubbing, extremities motor strength 5/5 Skin: no rashes, warm and dry Neurologic: moves all extremities and awake Psychiatric: Orientation: alert, oriented to person and cooperative Results & Data ([facility]) Vital Signs (Past 12 Hours) Vital Signs Temp Pulse Pulse Resp BP Pulse Ox 04/03/19 07:27 36.3 C L 79 20 113/79 94 04/03/19 07:15 72 04/03/19 07:01 79 19 96 04/03/19 03:15 36.4 C L 68 16 106/80 94 04/03/19 00:23 95 H PG Care Time/CCT Total # of Minutes Spent Total Time Spent with Patient: Total time spent is greater than 50% in coordination of care (as documented) at patient's floor/unit and/or counseling patient: Coding Level of Care Code 31610 Subseq Hosp Care Lvl 3 Diagnoses Syncope R55 Syncope type: unspecified Acute on chronic heart failure with reduced ejection fraction and diastolic dysfunction I50.43 Dilatation of thoracic aorta I77.810 Diabetes mellitus, type II E11.69; Z79.4 Diabetes mellitus manager terminal insulin use: with manager terminal use Diabetes mellitus complication status: with other specified complication Hypertension I10 Hypertension type: unspecified Morbid obesity E66.01 Obstructive sleep apnea G47.33 GERD (gastroesophageal reflux disease) K21.9 Esophagitis presence: without esophagitis COPD (chronic obstructive pulmonary disease) J44.9 COPD type: unspecified COPD DVT prophylaxis Z29.9 (1) Syncope Syncope type: unspecified Qualified Code(s): R55 - Syncope and collapse (2) Diabetes mellitus, type II Diabetes mellitus mcfp insulin use: with manager terminal use Diabetes mellitus complication status: with other specified complication Qualified Code(s): E11.69 - Type 2 diabetes mellitus with other specified complication; Z79.4 - joint terminal attack controller (current) use of insulin (3) Hypertension Hypertension type: unspecified Qualified Code(s): I10 - Essential (primary) hypertension (4) GERD (gastroesophageal reflux disease) Esophagitis presence: without esophagitis Qualified Code(s): K21.9 - Gastro- esophageal reflux disease without esophagitis (5) COPD (chronic obstructive pulmonary disease) COPD type: unspecified COPD Qualified Code(s): J44.9 - Chronic obstructive pulmonary disease, unspecified
--- NOTE | 2019-04-03 14:43 | Cardiology Progress Note ---
Date of Service April 03, 2019 Assessment & Plan (1) Acute on chronic heart failure with reduced ejection fraction and diastolic dysfunction: (2) Hypertensive urgency: (3) Noncompliance with medication regimen: (4) NICM (nonischemic cardiomyopathy): (5) Obesity hypoventilation syndrome: Scheduled for implantation of single-chamber ICD in a.m. Patient will shower then washed with chlorhexidine this evening as well as in the a.m. N.p.o. except medications after midnight tonight. Plan to resume diuretic therapy post ICD implantation. Tentative plan for discharge 04/05/2019. Subjective Patient seen and examined at the bedside. Resting comfortably. Denies chest pain or shortness of breath. No recurrent ventricular tachycardia on telemetry. Diuretic therapy on hold. Fluid balance essentially even over the past 24 hours. Review of Systems Review of Systems: All systems reviewed & are unremarkable except as noted in HPI & below Physical Exam Constitutional: well developed, well nourished and + morbidly obese Respiratory: normal respiratory effort; no respiratory distress, no labored breathing, no retractions, does not use accessory muscles and no cough Auscultation: + diminished lung sounds (Bases bilaterally); no rales (Bases bilaterally), no rhonchi and no wheezes Cardiovascular: Rate/Rhythm: regular rate and regular rhythm Heart Sounds: normal S1 and normal S2; no murmur and no cardiac rub Vessels: no JVD (Difficult to assess due to body habitus. No visible JVD in the upright position) and no carotid bruit Extremities: no edema Skin: no rashes, warm and dry Neurologic: moves all extremities; no focal motor deficits Psychiatric: A+Ox3, euthymic affect Insight: + poor insight Judgement: + limited judgement Results & Data Vital Signs (Past 12 Hours) Vital Signs Temp Pulse Pulse Resp BP Pulse Ox 04/03/19 11:53 36.6 C 72 20 110/70 95 04/03/19 07:27 36.3 C L 79 20 113/79 94 04/03/19 07:15 72 04/03/19 07:01 79 19 96 04/03/19 03:15 36.4 C L 68 16 106/80 94
[2019-04-03] MEDS: METOPROLOL SUCC 50MG EXT REL TAB PO SCH (21:38)
[2019-04-04] MEDS: BUDESONIDE 0.25 MG/2 ML VIAL (PULMICORT) INH SCH (07:47)
[2019-04-04 09:35] LABS: BUN Creatinine Ratio 17.7 (10-20); Calcium 8.5 mg/dl (8.5-10.1); Creatinine Clr Calc Pharmacy 150.7 ml/min; Est GFR (African American) 118.5; Est GFR (Non-African American) 102.2; Potassium 4.2 mmol/L (3.5-5.1)
[2019-04-04] MEDS: INSULIN ASPART 100 UNITS/ML 3 ML PEN SC SCH ×2 (10:06→11:43)
[2019-04-04] MEDS: INSULIN HUMAN NPH SC SCH (10:08)
[2019-04-04] MEDS: PANTOprazole 40 MG TAB PO SCH (10:10)
[2019-04-04] MEDS: SPIRONOLACTONE 25 MG TAB PO SCH (10:10)
[2019-04-04] MEDS: ALBUTEROL HFA 8 GM INHALER INH SCH ×2 (10:11→13:26)
[2019-04-04] MEDS: SACUBITRIL-VALSARTAN 97-103 MG TAB PO SCH (10:11)
[2019-04-04] MEDS: ASPIRIN 81 MG ECTAB PO SCH (10:11)
[2019-04-04] MEDS: DICLOFENAC SOD 1% GEL 100 GM TUBE EXT SCH ×2 (10:12→13:26)
--- NOTE | 2019-04-04 12:02 | Cardiology Progress Note ---
Date of Service April 04, 2019 Assessment & Plan (1) Acute on chronic heart failure with reduced ejection fraction and diastolic dysfunction: (2) Hypertensive urgency: (3) Noncompliance with medication regimen: (4) NICM (nonischemic cardiomyopathy): (5) Obesity hypoventilation syndrome: Scheduled for implantation of single-chamber ICD today. Resume diuretic therapy post ICD implantation. Continue evidence-based heart failure therapy including Toprol-XL, Entresto, and Aldactone. Tentative plan for discharge in AM, 04/05/2019. Subjective Patient seen and examined the bedside. No recurrent ventricular tachycardia on telemetry. Sinus bradycardia as well as occasional runs of junctional rhythm recorded during sleep. Edema resolved. Patient denies orthopnea or PND. Diuretics on hold. Fluid balance -250 cc over the past 24 hours. Weight is up 1 kg. is present at bedside today. Review of Systems Review of Systems: All systems reviewed & are unremarkable except as noted in HPI & below Physical Exam Constitutional: well developed, well nourished and + morbidly obese Respiratory: normal respiratory effort; no respiratory distress, no labored breathing, no retractions, does not use accessory muscles and no cough Auscultation: + diminished lung sounds (Bases bilaterally); no rales (Bases bilaterally), no rhonchi and no wheezes Cardiovascular: Rate/Rhythm: regular rate and regular rhythm Heart Sounds: normal S1 and normal S2; no murmur and no cardiac rub Vessels: no JVD (Difficult to assess due to body habitus. No visible JVD in the upright position) and no carotid bruit Extremities: no edema Skin: no rashes, warm and dry Neurologic: moves all extremities; no focal motor deficits Psychiatric: A+Ox3, euthymic affect Insight: + poor insight Judgement: + limited judgement Results & Data Vital Signs (Past 12 Hours) Vital Signs Temp Pulse Pulse Pulse Resp BP BP 04/04/19 11:23 36.6 C 79 16 131/94 04/04/19 07:48 82 79 16 04/04/19 07:21 36.4 C L 73 16 134/97 04/04/19 04:00 36.3 C L 74 20 127/87 04/04/19 00:27 91 H Pulse Ox 04/04/19 11:23 94 04/04/19 07:48 98 02/21/20 07:21 97 04/04/19 04:00 95 04/04/19 00:27
[2019-04-04] MEDS ORDERED: FUROSEMIDE 40 MG in SYRINGE 0 ML IV ONE (15:00)
--- NOTE | 2019-04-04 15:51 | Discharge Summary ---
Date of Service April 04, 2019 Admission HPI Per Admitting Provider Alok Huff is a 43yo C male with multiple medical comorbidities to include DM/HTN/HLP, CHF/COPD, medication non-adherence. He was recently admitted to our service for acute on chronic exacerbation of HFrEF, HTN urgency and influenza. He was treated with Tamiflu as well as IV Lasix and discharged home in stable condition on 03/22/19. He returns today with complaint of multiple possible syncopal events. Patient had a poor night's sleep last night - up multiple times, couldn't get comfortable, felt tired, weak and unable to move his arms and legs. He states that this AM around 06:30 he was unable to get up due to diffuse weakness. He reports becoming short of breath and having bandlike anterior chest discomfort as well as throat pain then he passed out. No seizure activity reported. No incontinence. Patient reports feeling fine when he woke up. He reports having a similar episode again at 08:30 He reports increased edema as well as SOB/BRISCOE/orthopnea and decreased exercise tolerance. He does not weigh himself routinely. (Per records he was 154.67 kg on 03/26 and is 160.7kg today - not on same scale). He reports adherence to his medications as well as a low sodium diet. ER Course: Lasix 40mg IV Principal Diagnosis Heart failure Discharge Exam Constitutional WD/WN, vitals as above + morbidly obese and cooperative; not lethargic Eyes EOM intact bilaterally; no conjunctival abnormality ENMT external ear and nose normal, oropharynx normal Neck trachea midline, no thyromegaly normal visual inspection Respiratory normal respiratory effort, lungs clear to auscultation no respiratory distress Cardiovascular RRR, no murmur, no edema Gastrointestinal (Abdomen) Inspection/Auscultation: abdomen normal to inspection; abdomen not distended Musculoskeletal no cyanosis or clubbing, extremities motor strength 5/5 Skin no rashes, warm and dry Neurologic moves all extremities and awake Psychiatric Orientation: alert, oriented to person and cooperative Discharge Data Allergies Allergy/AdvReac Type Severity Reaction Status Date / Time ceftriaxone Allergy Severe SHORTNESS Verified 03/31/19 10:42 OF BREATH lidocaine Allergy Severe SHORTNESS Verified 03/31/19 10:42 OF BREATH, diaphoretic, hives procaine Allergy Severe SHORTNESS Verified 03/31/19 10:42 OF BREATH, diaphoretic, hives amoxicillin Allergy Intermediate HIVES/FACIAL Verified 03/31/19 10:42 SWELLING clavulanic acid Allergy Intermediate HIVES/FACIAL Verified 03/31/19 10:42 SWELLING lisinopril Allergy Intermediate HIVES Verified 03/31/19 10:42 albuterol Allergy Mild proair Verified 03/31/19 10:42 "trouble taking breaths" acetaminophen AdvReac Mild NAUSEA Verified 03/31/19 10:42 Consultations 03/31/19 11:40 ED Decision to Admit Stat 03/31/19 15:10 Consult Cardiology Routine 04/02/19 12:40 Consult Cardiac Electrophysiology Routine Procedures Performed Operation Date: 04/04/19 13:30 <No data on this case meets the specified criteria> Ordered Studies 03/31/19 09:48 CT angio chest PE protocol Stat 04/04/19 07:59 CL Cath Imgs for PACS use only Routine Hospital Course (1) Syncope: Patient with possible syncopal events. CTA without PE. EKG with no acute ischemic changes. Electrolytes are within normal limits. Orthostatic vital signs are normal. - Cardiology consultation appreciated - Wide-complex tachycardia seen on monitor -> Will get ICD on Sunday. (2) Acute on chronic heart failure with reduced ejection fraction and diastolic dysfunction: Patient endorses orthopnea/edema/SOB and BRISCOE. Elevated BNP = 3092. Imaging suggestive of pulmonary edema. - Continue Entresto, beta-mansoor, spironolactone - Tried to give dose of Lasix, but IV had been removed and the patient wanted to go. We will beg him to take a dose of Lasix when he gets home. (3) Dilatation of thoracic aorta: Noted on imaging. - Should be followed outpatient (4) Diabetes mellitus, type II: Blood sugars were at goal yesterday. - NPH 12u BID - Sliding scale insulin (5) Hypertension: Patient's BP is 113/80. - Continue Metoprolol, Spironolactone, Entresto - Hydralazine 10mg IV q 4 hours as needed for BP > 180/110 (6) Morbid obesity: Noted. - Daily weights as above (7) Obstructive sleep apnea: MARIELENA/Obesity hypoventilation syndrome. Patient reports non-compliance with BiPAP at home. Could be contributing greatly to labile blood pressures and decompensation of HFrEF. - BiPAP 16/10 qHS (8) GERD (gastroesophageal reflux disease): Chronic. - Continue Protonix 40mg po BID (9) COPD (chronic obstructive pulmonary disease): Chronic. No active wheezing at present. - Continue Pulmicort - Continue Albuterol (10) DVT prophylaxis: SCDs - Will defer heparin for now given ICD tomorrow. Total Time Total Time Spent Total Time Spent (In Minutes): 35 Discharge Plan Discharge Items Patient Disposition: Home - Self-Care Reason For Visit: SYNCOPE Discharge Diagnosis: Syncope, volume overload Activity: Resume your previous activity Non-emergency contact: Primary Care Provider and Cleater Call non-emergency contact if: your symptoms worsen Follow-up/Referrals: Alejandra Geronimo CRNP, MS, PHYSICIAN/ALLERGY/IMMUNOLOGY-C [Primary Care Provider] - 04/08/19 8:00 am Diet: Heart Healthy and Low Sodium (2gm) Addtl Attending Provider Instructions: Please take your torsemide. Pending Studies at Discharge: No Stand-Alone Forms: [employer], Smoking Cessation Medications and DC Order Prescriptions: Continued Humalog Mix 50-50 KwikPen 100 unit/mL (50-50) insulin pen 40 units SQ BID RF: 0 (DME) lancets [OneTouch Delica Plus Lancet] 30 gauge misc See Dose Instructions .ROUTE .MEDSUPPLY Qty: 400 RF: 3 (DME) OneTouch Verio strip See Dose Instructions .ROUTE .MEDSUPPLY Qty: 400 RF: 3 potassium chloride 20 mEq tablet extended release 20 meq PO BID RF: 0 albuterol sulfate [Ventolin HFA] 90 mcg/actuation HFA aerosol inhaler 1 puffs INH QID Qty: 18 RF: 2 Trulicity 1.5 mg/0.5 mL pen injector 1.5 mg SQ WEEKLY Qty: 6 RF: 3 esomeprazole magnesium [Nexium] 20 mg capsule,delayed release(DR/EC) 20 mg PO BID RF: 0 aspirin [Aspirin Low Dose] 81 mg tablet,delayed release (DR/EC) 81 mg PO QAM RF: 0 nitroglycerin [Nitrostat] 0.4 mg Tablet, Sublingual 0.4 mg sublingual UD PRN (Reason: chest pain) Qty: 100 RF: 0 potassium chloride [Klor-Con M20] 20 mEq Tablet,Er Particles/Crystals 40 meq PO QAM 30 Days Qty: 60 RF: 1 torsemide 20 mg tablet 80 mg PO BID 30 Days Qty: 240 RF: 1 cholecalciferol (vitamin D3) [Vitamin D3] 1,000 unit capsule 2,000 units PO BID RF: 0 metoprolol succinate 200 mg capsule,sprinkle,ER 24hr 200 mg PO QPM Qty: 30 RF: 0 spironolactone [Aldactone] 25 mg tablet 25 mg PO QAM RF: 0 budesonide [Pulmicort] 0.25 mg/2 mL suspension for nebulization 0.25 mg NEB UD PRN (Reason: SHORTNESS BREATH) RF: 0 Entresto 97-103 mg tablet 1 tab PO QAM RF: 0 diclofenac sodium 1 % gel 2 gm TOP QID Qty: 100 RF: 0 Discontinued furosemide 40 mg tablet 40 mg PO BID RF: 0 Discharge Orders: Discharge Order (Routine); Ordered 04/04/19 Ordered By: Mynor Hunt Admission Data Admit Date/Time: 04/02/19 13:10 Attending Provider: Mynor Hunt Admit Provider: Ciarra Burr Primary Care Provider: Alejandra Geronimo Other Providers: Shon Hernandez ; Mynor Hunt ; Danya Ta Other Interventions: Discharge Summary Assessment (RN) Last Done: 04/04/19 15:39 Coding Level of Care Code D/C Day Management >30 mins Diagnoses Syncope R55 Syncope type: unspecified Acute on chronic heart failure with reduced ejection fraction and diastolic dysfunction I50.43 Dilatation of thoracic aorta I77.810 Diabetes mellitus, type II E11.69; Z79.4 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
== END 2019-04-04 16:25 | disposition home or self-care (01) | DRG 292 ==
LOC: ED 09:17 → 2W 09:17 → SUATTDRO 12:31 → 2W 14:21

== ENCOUNTER 2019-04-08 08:17 | Observation (INO) ==
[2019-04-08] MEDS ORDERED: fentaNYL citrate 100 MCG/2 ML VIAL ONE ×2 (10:50→12:06)
[2019-04-08] MEDS ORDERED: MIDAZOLAM HCL 5 MG/ML 1 ML VIAL ONE ×2 (10:50→12:07)
[2019-04-08] MEDS ORDERED: CEFAZOLIN 250 MG/ML 1 GM VIAL ONE ×2 (10:50→10:51)
--- NOTE | 2019-04-08 11:03 | History & Physical Bridge Note ---
Date of Service April 08, 2019 History & Physical Bridge Note I have examined the patient, reviewed the History & Physical and in the interval since the performance of the History & Physical I have noted the following changes of clinical significance: no changes since my inpatient consult note from last week
--- NOTE | 2019-04-08 11:03 | Pre Anesthesia Assessment ---
Date of Service April 08, 2019 Pre Sedation Assessment Vital Signs Temp Pulse Resp BP Pulse Ox 04/08/19 09:35 37.0 C 96 H 20 173/123 H 95 04/08/19 08:35 37.0 C 91 H 20 219/131 H 95 Cardiovascular + regular rate Respiratory normal respiratory effort, lungs clear to auscultation Pre-Sedation Airway Assessment Smoking Status: Never smoker Hx Sleep Apnea: Yes Short, Thick Neck: No Thyromental Distance: > or= 3.5 Finger Breadths Oral Cavity: + WNL Mallampati Class: III ASA: ASA3 NPO Status Date of Last Intake of Fluids: 04/07/19 Date of Last Intake of Solid Food: 04/07/19 Procedure Planning Contraindications for Sedation: none Current Medications Reviewed: Yes Notes The planned sedation has been discussed with the patient. Informed Consent was obtained. I have identified the patient, determined the appropriateness of sedation and have assessed the patient immediately prior to the procedure. All medicine(s) and interventions are by my order.
[2019-04-08] MEDS ORDERED: BACITRACIN INJ 50,000 UNIT VIAL ONE (11:38)
[2019-04-08] MEDS ORDERED: MEPIVACAINE HCL 1% 30 ML VIAL ONE (11:38)
[2019-04-08] MEDS ORDERED: CLINDAMYCIN PHOS 300 MG/2 ML VIAL ONE (11:42)
[2019-04-08] MEDS ORDERED: HydrALAZINE HCL 20 MG/ML VIAL ONE (12:49)
[2019-04-08] MEDS ORDERED: ACETAMINOPHEN 325 MG TAB PO PRN (12:49)
[2019-04-08] MEDS ORDERED: NITROGLYCERIN SL 0.4 MG/TAB TAB SL PRN (12:51)
--- NOTE | 2019-04-08 12:54 | Post Anesthesia Assessment ---
Date of Service April 08, 2019 Post Sedation Assessment Vital Signs Temp Pulse Resp BP Pulse Ox 04/08/19 09:35 37.0 C 96 H 20 173/123 H 95 04/08/19 08:35 37.0 C 91 H 20 219/131 H 95 Recovery Score Activity: Moves 4 extremities Respiration: Deep Breath/Cough Circulation: +/-20% PreAnes Value Consciousness: Fully Awake Oxygen Saturation: > 92% On Room Air Discharge Sedation Level of Care: Fast Track Phase II Post Sedation Plan On clinical assessment, the patient appears to have tolerated the sedation without complications. Patient is recovering as anticipated. Patient will continue to be monitored by nursing and may be discharged when sedation discharge criteria are met per below protocol. Upon Completions of procedure up to 15 minutes continue every 5 minute vital signs and the P.A.R. score; then discharge to a Phase I or Fast Track to Phase II per the following guidelines: * Discharge Patient to appropriate Phase II area if PAR is 8 or greater or return to pre- procedure baseline. The post - procedure orders will be as directed. * If PAR score is less than 8 or not return to pre-procedure baseline then patient will follow Phase I monitoring till PAR is reached for Phase II. The Phase I may be done in procedure room or may call to secure a Phase I area. * If naloxone or flumazenil are used for reversal, hold in Phase I for continued monitoring from when last reversal dose was given for a minimum of 60 minutes or longer pending the nurse and/or physician discretion of patient condition before discharge to Phase II. Please call the Sedation Physician to re-evaluate and complete post-note for discharge to Phase II area. Do NOT discharge from procedure sedation or Phase 1 until post- sedation evaluation note is complete by procedure /sedation MD Sedation Discharge Instructions to be given to the patient at discharge to home.
--- NOTE | 2019-04-08 12:54 | Operative Report ---
Post Operative Report Pre & Post Diagnosis nicm Operation Date: 04/08/19 11:00 <No data on this case meets the specified criteria> I identified the patient and participated in the time-out.: Yes Procedure Operation Date: 04/08/19 11:00 Actual Procedures p ICD Insertion Single or Dual - Danya Ta DO s Venogram, Unilateral - Danya Ta DO Surgeon Danya Ta, Swine Nutritionist none Estimated Blood Loss 15 Findings Consistent with Post-Op Diagnosis Specimens none Description of Procedure see official report I attest to the content of the Intraoperative Record and any orders documented therein. Any exceptions are noted below.
[2019-04-08] MEDS ORDERED: NON-FORMULARY MEDICATION (Dulaglutide [Trulicity] 1.5 MG) SQ SCH (13:00)
[2019-04-08] MEDS ORDERED: BUDESONIDE 0.25 MG/2 ML VIAL (PULMICORT) INH PRN (14:10)
[2019-04-08] MEDS: ALBUTEROL HFA 8 GM INHALER INH SCH ×3 (15:04→21:49)
--- NOTE | 2019-04-08 15:05 | Electrocardiogram Report ---
Test Reason : Blood Pressure : / mmHG Vent. Rate : 088 BPM Atrial Rate : 088 BPM P-R Int : 172 ms QRS Dur : 110 ms QT Int : 392 ms P-R-T Axes : 044 007 109 degrees QTc Int : 474 ms Sinus rhythm with Premature atrial complexes with Aberrant conduction Possible Left atrial enlargement Voltage criteria for left ventricular hypertrophy T wave abnormality, consider lateral ischemia Abnormal ECG When compared with ECG of 01-APR-2019 21:06, Aberrant conduction is now Present Confirmed by Bertrand Polanco ([id number]) on 04/08/2019 3:05:11 PM Referred By: Danya Ta Confirmed By:Severiano Polanco
[2019-04-08] MEDS ORDERED: HydrALAZINE HCL 20 MG/ML VIAL IV PRN (15:17)
[2019-04-08] MEDS: OXYCODONE/ACETAMINOPHEN 5mg/325mg TAB PO PRN ×2 (15:55→21:49)
[2019-04-08] MEDS: TORSEMIDE 20 MG TAB PO SCH (15:56)
[2019-04-08] MEDS ORDERED: GLUCAGON FOR INJ 1 MG VIAL IM PRN (18:00)
[2019-04-08] MEDS ORDERED: CARBOHYDRATES FOR HYPOGLYCEMIA PO PRN (18:00)
[2019-04-08] MEDS ORDERED: GLUCOSE 10 TABS/TUBE PO PRN (18:00)
[2019-04-08] MEDS ORDERED: GLUCOSE 40% GEL 15 GM TUBE PO PRN (18:00)
[2019-04-08] MEDS ORDERED: DEXTROSE 50% 50 ML SYRINGE IV PRN (18:00)
[2019-04-08] MEDS: INSULIN HUMAN NPH SC SCH (18:50)
[2019-04-08] MEDS: INSULIN ASPART 100 UNITS/ML 3 ML PEN SC SCH ×2 (18:51→22:57)
[2019-04-08] MEDS ORDERED: METOPROLOL SUCC 50MG EXT REL TAB PO SCH (21:00)
[2019-04-08] MEDS: CLINDAMYCIN 900 MG in DEXTROSE 5% 50 ML IV SCH (21:47)
[2019-04-08] MEDS: PANTOprazole 40 MG TAB PO SCH (21:49)
[2019-04-08] MEDS: CHOLECALCIFEROL 1,000 UNITS 25 MCG TAB PO SCH (21:49)
[2019-04-08] MEDS: POTASSIUM CHLORIDE 20 MEQ TABCR PO SCH (21:49)
[2019-04-09] MEDS: OXYCODONE/ACETAMINOPHEN 5mg/325mg TAB PO PRN (04:22)
[2019-04-09] MEDS: CLINDAMYCIN 900 MG in DEXTROSE 5% 50 ML IV SCH (04:26)
--- NOTE | 2019-04-09 06:33 | XRay Report ---
XR chest 2V PA/lateral HISTORY: 43 years-old Male post icd status post placement of a left subclavian pacer/AICD COMPARISON: Chest radiographs 04/01/2019 TECHNIQUE: PA and lateral views of the chest FINDINGS: Limited lateral view secondary to left upper extremity positioning. Moderate cardiomegaly. Status pos t placement of a single lead left subclavian pacer/AICD with distal tip overlying the expected locati on of the right ventricle. There is no postprocedural pneumothorax identified. No pleural effusion, o vert pulmonary edema or airspace consolidation. Degenerative changes of the spine. IMPRESSION: Status post placement of a left subclavian pacer/AICD. No postprocedural pneumothorax. ACT 112: Negative or not required by law. The above report was generated using voice recognition software. It may contain grammatical, syntax o r spelling errors. Electronically signed by: Petr Irby M.D. 04/09/2019 6:31 AM
[2019-04-09] MEDS: INSULIN ASPART 100 UNITS/ML 3 ML PEN SC SCH (07:58)
[2019-04-09] MEDS: INSULIN HUMAN NPH SC SCH (08:00)
[2019-04-09] MEDS: TORSEMIDE 20 MG TAB PO SCH (08:02)
[2019-04-09] MEDS: ALBUTEROL HFA 8 GM INHALER INH SCH (08:38)
[2019-04-09] MEDS: PANTOprazole 40 MG TAB PO SCH (08:39)
[2019-04-09] MEDS: CHOLECALCIFEROL 1,000 UNITS 25 MCG TAB PO SCH (08:39)
[2019-04-09] MEDS: POTASSIUM CHLORIDE 20 MEQ TABCR PO SCH (08:39)
[2019-04-09] MEDS ORDERED: ASPIRIN 81 MG ECTAB PO SCH (09:00)
[2019-04-09] MEDS ORDERED: SACUBITRIL-VALSARTAN 97-103 MG TAB PO SCH (09:00)
[2019-04-09] MEDS ORDERED: SPIRONOLACTONE 25 MG TAB PO SCH (09:00)
--- NOTE | 2019-04-09 14:56 | Electrocardiogram Report ---
Test Reason : Blood Pressure : / mmHG Vent. Rate : 075 BPM Atrial Rate : 075 BPM P-R Int : 172 ms QRS Dur : 110 ms QT Int : 462 ms P-R-T Axes : 011 017 139 degrees QTc Int : 515 ms Sinus rhythm with frequent Premature ventricular complexes Possible Left atrial enlargement T wave abnormality, consider lateral ischemia Prolonged QT Abnormal ECG When compared with ECG of 08-APR-2019 14:22, Premature ventricular complexes are now Present Aberrant conduction is no longer Present T wave amplitude has decreased in Anterior leads Confirmed by Bertrand Polanco ([id number]) on 04/09/2019 2:56:21 PM Referred By: Danya Ta Confirmed By:Severiano Polanco
--- NOTE | 2019-04-09 16:17 | Discharge Summary ---
Date of Service April 09, 2019 Admission HPI Per Admitting Provider +SOB pt admitted for elective ICD Admission Exam Per Admitting Provider aaox3, NAD NC/AT, EOMI Supple No JVD Nrl S1/S2, No murmur CTA b/l no w/r/r soft nt/nd no LE edema b/l skin intact no focal deficits Principal Diagnosis NICM s/p ICD Discharge Exam aaox3, NAD NC/AT, EOMI Supple No JVD Nrl S1/S2, No murmur CTA b/l no w/r/r soft nt/nd no LE edema b/l skin intact no focal deficits left pectoral incision intact, no hematoma mild ecchymosis Discharge Data Allergies Allergy/AdvReac Type Severity Reaction Status Date / Time ceftriaxone Allergy Severe SHORTNESS Verified 03/31/19 10:42 OF BREATH lidocaine Allergy Severe SHORTNESS Verified 03/31/19 10:42 OF BREATH, diaphoretic, hives procaine Allergy Severe SHORTNESS Verified 03/31/19 10:42 OF BREATH, diaphoretic, hives amoxicillin Allergy Intermediate HIVES/FACIAL Verified 03/31/19 10:42 SWELLING clavulanic acid Allergy Intermediate HIVES/FACIAL Verified 03/31/19 10:42 SWELLING lisinopril Allergy Intermediate HIVES Verified 03/31/19 10:42 albuterol Allergy Mild proair Verified 03/31/19 10:42 "trouble taking breaths" acetaminophen AdvReac Mild NAUSEA Verified 03/31/19 10:42 Procedures Performed Operation Date: 04/08/19 11:00 Actual Procedures p ICD Insertion Single or Dual - Danya Ta DO s Venogram, Unilateral - Danya Ta DO Ordered Studies ICD Interrogation: Normal function and lead testing ECG: SR CXR: No PTX, lead in position 04/08/19 06:43 CL Cath Imgs for PACS use only Routine Hospital Course (1) NICM (nonischemic cardiomyopathy): Total Time Total Time Spent Total Time Spent (In Minutes): 35 Total Time Includes: Examination of the Patient, Discharge Planning, Medication Reconciliation and Other Discharge Plan Discharge Items Patient Disposition: Home - Self-Care Reason For Visit: Non-Obstructive Cardiomyopathy Discharge Diagnosis: NICM s/p ICD Condition on Discharge: Good Activity: As commented below Activity Comment: Do not lift the left elbow over the left shoulder for 1 month Lifting: No more than 10 pounds Lifting Comment: do not lift more than 10 pounds with the left arm for 2 weeks Bathing: Keep incision dry Bathing Comment: keep dressing on & dry until wound check next week Sexual Activity: After two weeks Driving/Machine Use: Resume 1 day after discharge Non-emergency contact: [employer] Specialist Call non-emergency contact if: you have any medication questions Follow-up/Referrals: Alejandra Geronimo CRNP, MS, BRUSH CLEARER SURVEYING-C [Primary Care Provider] - 04/15/19 11:00 am Diet: Heart Healthy, Low Fat and Low Sodium (2gm) Addtl Attending Provider Instructions: Device and wound [facility] next SundayApril 17 at 10:15am Look at your device area every day for the next month-if you notice any swelling or redness or any concerns at the area call Dr. Ta's office immediately Pending Studies at Discharge: No Stand-Alone Forms: My [facility], Smoking Cessation Medications and DC Order Prescriptions: Continued Humalog Mix 50-50 KwikPen 100 unit/mL (50-50) insulin pen 40 units SQ BID RF: 0 (DME) lancets [OneTouch Delica Plus Lancet] 30 gauge misc See Dose Instructions .ROUTE .MEDSUPPLY Qty: 400 RF: 3 (DME) OneTouch Verio strip See Dose Instructions .ROUTE .MEDSUPPLY Qty: 400 RF: 3 potassium chloride 20 mEq tablet extended release 20 meq PO BID RF: 0 albuterol sulfate [Ventolin HFA] 90 mcg/actuation HFA aerosol inhaler 1 puffs INH QID Qty: 18 RF: 2 Trulicity 1.5 mg/0.5 mL pen injector 1.5 mg SQ WEEKLY Qty: 6 RF: 3 esomeprazole magnesium [Nexium] 20 mg capsule,delayed release(DR/EC) 20 mg PO BID RF: 0 aspirin [Aspirin Low Dose] 81 mg tablet,delayed release (DR/EC) 81 mg PO QAM RF: 0 nitroglycerin [Nitrostat] 0.4 mg Tablet, Sublingual 0.4 mg sublingual UD PRN (Reason: chest pain) Qty: 100 RF: 0 torsemide 20 mg tablet 80 mg PO BID 30 Days Qty: 240 RF: 1 cholecalciferol (vitamin D3) [Vitamin D3] 1,000 unit capsule 2,000 units PO BID RF: 0 metoprolol succinate 200 mg capsule,sprinkle,ER 24hr 200 mg PO QPM Qty: 30 RF: 0 spironolactone [Aldactone] 25 mg tablet 25 mg PO QAM RF: 0 budesonide [Pulmicort] 0.25 mg/2 mL suspension for nebulization 0.25 mg NEB UD PRN (Reason: SHORTNESS BREATH) RF: 0 Entresto 97-103 mg tablet 1 tab PO QAM RF: 0 diclofenac sodium 1 % gel 2 gm TOP QID Qty: 100 RF: 0 Discharge Orders: Discharge Order (Routine); Ordered 04/09/19 Ordered By: Danya Ta Admission Data Admit Date/Time: 04/08/19 12:07 Attending Provider: Dayna Ta Admit Provider: Danya Ta Primary Care Provider: Alejandra Geronimo Other Interventions: Discharge Summary Assessment (RN) Last Done: 04/09/19 09:40 DC Date/Time DO NOT enter until pt leaves facility: 04/09/19 09:50
--- NOTE | 2019-04-10 01:08 | Operative Report ---
DATE OF OPERATION: 04/08/2019 PREOPERATIVE DIAGNOSIS: Nonischemic cardiomyopathy. POSTOPERATIVE DIAGNOSIS: Nonischemic cardiomyopathy. PROCEDURE: Single chamber rate responsive implantable cardiac defibrillator under fluoroscopic guidance along with peripheral venogram. SURGEON: Danya Ta DO. PAN DEVULCANIZER: None. ANESTHESIA: Monitored conscious sedation administered under my supervision by Liliana Rivera. Start time 11:48, end time 12:46, a total of 6 mg of Versed and 150 mcg of fentanyl. IV FLUIDS: 18 mL. IV CONTRAST: 10 mL. ANTIBIOTICS: Clindamycin 900 mg. FINDINGS: See below. DRAINS: None. COMPLICATIONS: None. CONDITION: Stable. URINE OUTPUT: Not applicable. SPECIMENS: None. INDICATIONS: This is a 43-year-old gentleman with past medical history for nonischemic cardiomyopathy with ejection fraction of 35%, hypertensive urgency, obesity, hypoventilation, sinus tachycardia, chronic systolic and diastolic heart failure [place] Heart Association class 2 and noncompliance with medications and diet. He has been discussed about the defibrillator in the past and now he has chosen that he would prefer one. CONSENT: Consent was obtained prior to the patient going into the Electrophysiology lab. The patient was informed of risks, benefits and alternative procedure. Risks include but not limited to sudden cardiac ; cardiac arrhythmias; cerebrovascular accident; myocardial infarction; injury to the blood vessels, chamber of the heart, lung; bleeding and infection. The patient understood these risks and agreed to the procedure as planned. Informed consent was obtained. DESCRIPTION OF THE PROCEDURE: The patient was brought into Electrophysiology lab in a fasting state. He was connected to continuous cardiac monitoring. A timeout was performed to ensure patient identity and procedure correctly. The patient was prepped and draped over the left infraclavicular space in normal surgical standard fashion. Monitored conscious sedation was given throughout the procedure for the patient's comfort level. Gleason precautions maintained throughout the procedure. He received prophylactic antibiotics prior to incision. A 10 mL of mepivacaine was given for local sedation as THE PATIENT HAS ALLERGIES TO LIDOCAINE AND PROCAINE. Then an incision was made in the left deltopectoral groove and then a peripheral venogram was performed to identify the axillary vein. Axillary venous access was obtained through a needle stick and a guidewire was inserted without any resistance. A 9.5-Prydeinig sheath was then inserted over the guidewire without any resistance. Guidewire and dilator removed. Right ventricular defibrillator lead was then advanced into right ventricle and positioned in right ventricular apex under fluoroscopic guidance. There was adequate pacing and sensing thresholds and no diaphragmatic stimulation with high output pacing. The 9.5-Prydeinig sheath was peeled away and lead was fixated to pectoralis muscle using 0 silk suture. A defibrillator pocket was then created using blunt dissection over the pectoralis muscle within the pectoralis fascia. The pocket was flushed with copious amounts of bacitracin saline wash and inspected for hemostasis. Pulse generator was then attached to the lead making sure that the pins were in appropriate position, passed set screws and set screws were all tightened. Pulse generator was then placed in a Tyrx pouch making sure that the leads were lying flat beneath the device, then placed in the pocket making sure that the leads were still lying flat beneath the device. The incision was then closed in 3-layer fashion with 2-0 Vicryl interrupted suture, followed by 3-0 Vicryl interrupted suture, followed by a 4-0 Monocryl running stitch, followed by Dermabond and a Telfa and micropore dressing. EQUIPMENT: 1. Pulse generator is a [place] AF MRI SureScan [id number], serial number [id number]. 2. The Tyrx pouch expiration is 04/12/2019, reference [id number], lot [id number]. 3. Right ventricular lead, Medtronic 6935M-62 cm, serial number [id number]. INTRAOPERATIVE TESTING: Right ventricular lead R waves 19.6 millivolts, impedance 582 ohms, threshold 0.5 volts at 0.5 milliseconds. FINAL MEASUREMENTS THROUGH THE DEVICE: Right ventricular lead R waves 19.7 millivolts, impedance 399 ohms, threshold 0.75 volts at 0.4 milliseconds. FINAL PARAMETERS: VVI 40, right ventricular amplitude 3.5 volts, pulse width 0.4 milliseconds, sensitivity 0.3 millivolts. A VT monitor zone at 150 beats per minute for 32 detection intervals, VT zone at 171 beats per minute for 20 detection intervals and a VF zone at 207 beats per minute for 30/40 detection intervals. IMPRESSION: Successful implantation of single chamber rate responsive implantable cardiac defibrillator under fluoroscopic guidance along with peripheral venogram secondary to nonischemic cardiomyopathy. PLAN: Monitor the patient overnight, 12-lead ECG, chest x-ray. He is not allowed to lift the left elbow over left shoulder for 1 month. He is not allowed to lift more than 10 pounds with the left arm for 2 weeks. He is to keep the dressing on and dry and sponge bath around it until his wound check next week at [facility]. I did give him 3 more additional rounds of clindamycin due to his noncompliance and body hygiene. I thought it was best to try to minimize infection more. I stressed the importance of compliance with diet and medicines. He will follow up with General Cardiology as scheduled. I attest to the content of the Intraoperative Record and any orders documented therein. Any exceptions are noted below. SARITA
== END 2019-04-09 09:50 | disposition home or self-care (01) ==
LOC: 2S 08:17 → EP 08:17
PROC: EPB.ICD (2019-04-08 11:00)

== ENCOUNTER 2019-04-29 20:47 | Observation (INO) ==
[2019-04-29] MEDS ORDERED: FUROSEMIDE 40 MG/4 ML VIAL IV STA ×2 (21:19→23:11)
[2019-04-29] MEDS ORDERED: NITROGLYCERIN SL 0.4 MG/TAB TAB SL STA (21:26)
[2019-04-29 21:34] LABS: Basophils # (auto) 0.02 K/uL (0-0.2); Basophils % (auto) 0.2 %; Eosinophils # (auto) 0.06 K/uL (0-0.5); Eosinophils % (auto) 0.6 %; Hematocrit (blood only) 39.9 % (42-52); Hemoglobin 13.3 g/dL (14.0-18.0); Immature Granulocytes # (auto) 0.03 K/uL (0.00-0.02); Immature Granulocytes % (auto) 0.3 %; Lymphocytes # (auto) 1.98 K/uL (1.2-3.4); Lymphocytes % (auto) 20.6 %; Mean Corpuscular Hemoglobin 28.7 pg (25-34); Mean Corpuscular Hgb Conc 33.3 g/dL (32-36); Mean Platelet Volume 9.8 fL (7.4-10.4); Monocytes # (auto) 0.41 K/uL (0.11-0.59); Monocytes % (auto) 4.3 %; Neutrophils # (auto) 7.13 K/uL (1.4-6.5); Platelet Count 227 K/uL (130-400); RDW Coefficient of Variation 15.7 % (11.5-14.5); RDW Standard Deviation 49.2 fL (36.4-46.3); Red Blood Count 4.64 M/uL (4.7-6.1); White Blood Count 9.63 K/uL (4.8-10.8)
--- NOTE | 2019-04-29 21:36 | Emergency Department Note ---
ED Provider Note Provider: Dayne Ahn MD DATE OF SERVICE: 04/29/2019 CHIEF COMPLAINT: Shortness of breath HISTORY OF PRESENT ILLNESS: Patient is a 43-year-old gentleman with a past history of nonischemic cardiomyopathy, hypertension, diabetes, sleep apnea, COPD presenting today with report of several days of worsening shortness of breath and does report some chest pain. Patient received aspirin and nitro for EMS. Patient on 6 L of oxygen. Patient tachycardic tachypneic upon arrival. Significantly hypertensive. 85% on room air. Patient has been seen here several times in the last several weeks for evaluation. Recently hospitalized last month related to influenza. AICD recently placed. Patient seen in the primary care's office today and home oxygen was ordered as the patient refused to come to the hospital at that time. This is not been set up. Patient hypoxic on room air. Patient states he has right greater than left leg swelling and states his weights increased. States shortness of breath with some mild hemoptysis. Endorses diffuse chest pain rating to his back. Has been taking multiple nitros at home for significant hypertension. No change in his symptoms with aspirin and nitro for EMS. Patient states he is also been feeling somewhat sleepy and states that he had a syncopal episode for EMS. REVIEW OF SYSTEMS: A total of 10 review of systems was obtained and negative except as stated above in the HPI. PAST MEDICAL HISTORY: As noted above MEDICATIONS: Reviewed the nursing note and agree SOCIAL HISTORY: , lives at home, denies tobacco use PHYSICAL EXAM: GENERAL: alert and oriented laying on stretcher with increased work of breathing Head: normocephalic and atraumatic EYES: No injection, discharge or icterus. PERRL, EOMI. NECK: Trachea midline. Supple. ENT: Mucous membranes pink and moist. LUNGS: Airway patent. Some increased work of breathing with diminished lung bases HEART: Regular rate and rhythm. No chest wall tenderness ABDOMEN: Soft and non-tender, without guarding or rebound. BACK: No midline tenderness, no SI joint tenderness SKIN: Acyanotic, warm, dry, without rashes EXTREMITIES: 3+ right lower extremity swelling and 2+ left lower extremity swelling NEUROLOGICAL: No focal deficits. No aphasia. No facial droop or slurred speech. Normal strength and tone in the extremities. Sensation to gross touch normal. Ambulatory. EKG: Sinus tachycardia with a rate of 119. PACs noted. Do not see significant ST elevation or depression with some inferior lateral ST flattening noted. Compared to previous EKG from April [id number], appears similar. CONTINUOUS CARDIAC MONITORING: was ordered and showed a heart rate of 115 bpm in sinus tachycardia with occasional PAC/PVC Patient's hypertension was referred to the hospitalist/PCP HOSPITAL COURSE: 2124 Patient was first seen and H&P performed. 2255 Patient reassessed and updated. Patient was still on oxygen significantly hypertensive. Advised of results at this time. Advised recommendation for evaluation by the hospitalist for admission given his hypoxia and fluid overload as well as hypertension. Patient states he wants to call his family and see if they have his oxygen dropped off at home. Discussed with him significant risk with discharge at this time. He states he wanted to discuss with his family Patient's laboratory studies and imaging reviewed. Differential includes Cardiac ischemia, aortic dissection, pulmonary embolism, pneumothorax, pneumonia, pericarditis, myocarditis, esophageal rupture, GERD, cholecystitis, pancreatitis, musculoskeletal, as well as other pathologies. IMPRESSION/MEDICAL DECISION MAKING: Patient is complaining of chest and back pain with associated shortness of breath. Recent evaluation here and at the primary care's office. Patient now hypoxic requiring oxygen and does appear fatigued with increased work of breathing. Likely does not appear that he significantly hypercapnic. No significant leukocytosis or new anemia is noted. Mild hypomagnesemia again noted on laboratory studies. Negative influenza. Procalcitonin undetectable. Troponin detectable but not abnormal and similar to previous. BNP is significantly elevated consistent with x-ray and CT findings of fluid overload. CT of the chest excludes dissection or PE. In the clinical context of low vazquez spicion for pneumonia and scattered infectious inflammatory process, consistent from prior imaging. Magnesium supplementation ordered. IV diuresis ordered. Initially given some nitroglycerin for the hypertension. Ultrasound lower extremity of the right leg was completed given some swelling there without findings of DVT. Likely this is all related to fluid overload. Component of hypertension here as well. Nitroglycerin paste ordered. Discussed with the patient recommendation for further evaluation by the hospital and probable admission. Patient did not initially wish for this. Patient was aware of the risks and benefits and could verbalize them back to me. Patient states that he was talking to his family to see if his oxygen delivered. Discussed with him that if he goes home at this time he could decompensate, suffer heart or lung injury, brain injury, or . Per his request discussed with his stepson via phone. Patient has not yet had his home oxygen delivered. Family was in agreement that he should stay and the patient was agreeable. Given IV magnesium as well as additional IV Lasix. DIAGNOSIS: CHF exacerbation, fluid overload, hypoxia, chest pain, hypomagnesemia DISPOSITION: Hospitalist will evaluate I have personally spent 48 minutes of critical care time in the direct management of this patient. This includes bedside care, interpretation of diagnostic studies, and testing, discussion with consultants, patient, and family members, and other required patient management activities. These 48 minutes is in excess of all separately billable procedures. Impression & Plan Hypoxia, Hypertension, CHF exacerbation, Fluid overload, Hypomagnesemia, Chest pain Past Med/Surg History Social History Preferred Language: Bruneian Communication Ability: Effective Visual Impairment: No Limitations Hearing Ability: Normal [employer] Required: No Beliefs That Will Affect Care: None marital status: Current Living Situation: Spouse current occupational status: unemployed Feels Safe at Home: Yes Smoking Status: Never smoker Tobacco Type: cigarettes ; Age Started Using Tobacco: 14 ; Age Quit Using Tobacco: 18 ; Second Hand Exposure: No ; Hx Alcohol Use: No Hx Substance Use: No Childhood Exposure to Second-Hand Smoke: Yes Dental Care, Regularly: Yes Physical Activity Frequency: Does not Exercise Results & Data Vital Signs Vital Signs - 24 hr 04/29/19 20:55 04/29/19 21:10 04/29/19 21:29 Temperature 36.5 C Temperature Source Oral Pulse Rate 121 H Pulse Rate [Apical] 115 H Pulse Rate from SpO2 Sensor Respiratory Rate 30 H 24 Respiratory Effort / Characteristics Labored Respiratory Depth Shallow Blood Pressure 217/160 H Blood Pressure [Right Arm] 162/128 H Blood Pressure Mean 179 Blood Pressure Mean [Right Arm] 139 Pulse Oximetry 85 L 97 Oxygen Delivery Method Nasal Cannula Nasal Cannula Nasal Cannula Oxygen Flow Rate 6 Sepsis Recent Fever Within 48 Hours No Sepsis New/Unexplained Change in Mental Status No Sepsis Action Taken by Nursing No Action Required Oxygen Flow Rate - Titration 6 Pulse Oximetry Post Tiitration 94 04/29/19 21:30 04/29/19 22:54 Temperature Temperature Source Pulse Rate 115 H 111 H Pulse Rate [Apical] Pulse Rate from SpO2 Sensor 117 H 111 H Respiratory Rate 30 H 23 Respiratory Effort / Characteristics Respiratory Depth Blood Pressure 173/140 H 199/120 H Blood Pressure [Right Arm] Blood Pressure Mean 145 142 Blood Pressure Mean [Right Arm] Pulse Oximetry 96 95 Oxygen Delivery Method Nasal Cannula Nasal Cannula Oxygen Flow Rate 6 6 Sepsis Recent Fever Within 48 Hours Sepsis New/Unexplained Change in Mental Status Sepsis Action Taken by Nursing Oxygen Flow Rate - Titration Pulse Oximetry Post Tiitration Laboratory Data Result diagrams: 04/29/19 21:05 04/29/19 21:05 Lab Results 04/29/19 04/29/19 04/29/19 Range/Units 21:05 21:05 21:05 WBC 9.63 (4.8-10.8) K/uL RBC 4.64 L (4.7-6.1) M/uL Hgb 13.3 L (14.0-18.0) g/dL Hct 39.9 L (42-52) % MCV 86.0 (80-100) fL MCH 28.7 (25-34) pg MCHC 33.3 (32-36) g/dL RDW Std Deviation 49.2 H (36.4-46.3) fL RDW Coeff of Zoltan 15.7 H (11.5-14.5) % Plt Count 227 (130-400) K/uL MPV 9.8 (7.4-10.4) fL Immature Gran % (Auto) 0.3 % Neut % (Auto) 74.0 % Lymph % (Auto) 20.6 % [place] % (Auto) 4.3 % Eos % (Auto) 0.6 % Baso % (Auto) 0.2 % Immature Gran # (Auto) 0.03 H (0.00-0.02) K/uL Neut # (Auto) 7.13 H (1.4-6.5) K/uL Lymph # (Auto) 1.98 (1.2-3.4) K/uL [place] # (Auto) 0.41 (0.11-0.59) K/uL Eos # (Auto) 0.06 (0-0.5) K/uL Baso # (Auto) 0.02 (0-0.2) K/uL PT 12.0 (9.0-12.0) Seconds INR 1.1 (0.9-1.1) APTT 27.6 (21.0-31.0) Seconds PTT Ratio 1.0 VBG pH (7.36-7.41) VBG pCO2 (38-50) mmHg VBG pO2 mmHg VBG HCO3 mmol/L VBG O2 Saturation % VBG Base Excess mEq/L Barometric Pressure mm/Hg Sodium 139 (136-145) mmol/L Potassium 3.9 (3.5-5.1) mmol/L Chloride 108 H (98-107) mmol/L Carbon Dioxide 25 (21-32) mmol/L Anion Gap 6.0 (3-11) BUN 13 (7-18) mg/dl Creatinine 1.07 (0.6-1.4) mg/dl Est Cr Clr Drug Dosing 134.7 ml/min Est GFR ( Amer) 98.7 Est GFR (Non-Af Amer) 85.2 BUN/Creatinine Ratio 12.4 (10-20) Glucose 232 H (70-99) mg/dl Calcium 8.5 (8.5-10.1) mg/dl Magnesium 1.7 L (1.8-2.4) mg/dl Total Bilirubin 1.1 H (0.2-1) mg/dl AST 13 L (15-37) U/L ALT 19 (12-78) U/L Alkaline Phosphatase 88 (45-117) U/L Troponin I 0.033 (0-0.045) ng/ml NT-Pro-B Natriuret Pep 4613 H (0-450) pg/ml Total Protein 6.8 (6.4-8.2) gm/dl Albumin 2.9 L (3.4-5.0) gm/dl Globulin 3.9 (2.5-4.0) gm/dl Albumin/Globulin Ratio 0.7 L (0.9-2) Procalcitonin (0-0.5) ng/ml Urine Color Urine Appearance (Clear) Urine pH (4.5-7.5) Ur Specific Hawthorn (1.000-1.030) Urine Protein (Negative) Urine Glucose (UA) (Negative) Urine Ketones (Negative) Urine Blood (Negative) Urine Nitrite (Negative) Urine Bilirubin (Negative) Urine Urobilinogen (Negative) Ur Leukocyte Esterase (Negative) Influenza Type A (PCR) (Neg) Influenza Type B (PCR) (Neg) 04/29/19 04/29/19 04/29/19 Range/Units 21:05 21:35 21:35 WBC (4.8-10.8) K/uL RBC (4.7-6.1) M/uL Hgb (14.0-18.0) g/dL Hct (42-52) % MCV (80-100) fL MCH (25-34) pg MCHC (32-36) g/dL RDW Std Deviation (36.4-46.3) fL RDW Coeff of Zoltan (11.5-14.5) % Plt Count (130-400) K/uL MPV (7.4-10.4) fL Immature Gran % (Auto) % Neut % (Auto) % Lymph % (Auto) % [place] % (Auto) % Eos % (Auto) % Baso % (Auto) % Immature Gran # (Auto) (0.00-0.02) K/uL Neut # (Auto) (1.4-6.5) K/uL Lymph # (Auto) (1.2-3.4) K/uL [place] # (Auto) (0.11-0.59) K/uL Eos # (Auto) (0-0.5) K/uL Baso # (Auto) (0-0.2) K/uL PT (9.0-12.0) Seconds INR (0.9-1.1) APTT (21.0-31.0) Seconds PTT Ratio VBG pH 7.46 H (7.36-7.41) VBG pCO2 37 L (38-50) mmHg VBG pO2 53 mmHg VBG HCO3 25 mmol/L VBG O2 Saturation 86.6 % VBG Base Excess 1.6 mEq/L Barometric Pressure 738.7 mm/Hg Sodium (136-145) mmol/L Potassium (3.5-5.1) mmol/L Chloride (98-107) mmol/L Carbon Dioxide (21-32) mmol/L Anion Gap (3-11) BUN (7-18) mg/dl Creatinine (0.6-1.4) mg/dl Est Cr Clr Drug Dosing ml/min Est GFR ( Amer) Est GFR (Non-Af Amer) BUN/Creatinine Ratio (10-20) Glucose (70-99) mg/dl Calcium (8.5-10.1) mg/dl Magnesium (1.8-2.4) mg/dl Total Bilirubin (0.2-1) mg/dl AST (15-37) U/L ALT (12-78) U/L Alkaline Phosphatase (45-117) U/L Troponin I (0-0.045) ng/ml NT-Pro-B Natriuret Pep (0-450) pg/ml Total Protein (6.4-8.2) gm/dl Albumin (3.4-5.0) gm/dl Globulin (2.5-4.0) gm/dl Albumin/Globulin Ratio (0.9-2) Procalcitonin < 0.05 (0-0.5) ng/ml Urine Color Urine Appearance (Clear) Urine pH (4.5-7.5) Ur Specific Hawthorn (1.000-1.030) Urine Protein (Negative) Urine Glucose (UA) (Negative) Urine Ketones (Negative) Urine Blood (Negative) Urine Nitrite (Negative) Urine Bilirubin (Negative) Urine Urobilinogen (Negative) Ur Leukocyte Esterase (Negative) Influenza Type A (PCR) Neg for Influ A (Neg) Influenza Type B (PCR) Neg for Influ B (Neg) 04/29/19 Range/Units 23:02 WBC (4.8-10.8) K/uL RBC (4.7-6.1) M/uL Hgb (14.0-18.0) g/dL Hct (42-52) % MCV (80-100) fL MCH (25-34) pg MCHC (32-36) g/dL RDW Std Deviation (36.4-46.3) fL RDW Coeff of Zoltan (11.5-14.5) % Plt Count (130-400) K/uL MPV (7.4-10.4) fL Immature Gran % (Auto) % Neut % (Auto) % Lymph % (Auto) % [place] % (Auto) % Eos % (Auto) % Baso % (Auto) % Immature Gran # (Auto) (0.00-0.02) K/uL Neut # (Auto) (1.4-6.5) K/uL Lymph # (Auto) (1.2-3.4) K/uL [place] # (Auto) (0.11-0.59) K/uL Eos # (Auto) (0-0.5) K/uL Baso # (Auto) (0-0.2) K/uL PT (9.0-12.0) Seconds INR (0.9-1.1) APTT (21.0-31.0) Seconds PTT Ratio VBG pH (7.36-7.41) VBG pCO2 (38-50) mmHg VBG pO2 mmHg VBG HCO3 mmol/L VBG O2 Saturation % VBG Base Excess mEq/L Barometric Pressure mm/Hg Sodium (136-145) mmol/L Potassium (3.5-5.1) mmol/L Chloride (98-107) mmol/L Carbon Dioxide (21-32) mmol/L Anion Gap (3-11) BUN (7-18) mg/dl Creatinine (0.6-1.4) mg/dl Est Cr Clr Drug Dosing ml/min Est GFR ( Amer) Est GFR (Non-Af Amer) BUN/Creatinine Ratio (10-20) Glucose (70-99) mg/dl Calcium (8.5-10.1) mg/dl Magnesium (1.8-2.4) mg/dl Total Bilirubin (0.2-1) mg/dl AST (15-37) U/L ALT (12-78) U/L Alkaline Phosphatase (45-117) U/L Troponin I (0-0.045) ng/ml NT-Pro-B Natriuret Pep (0-450) pg/ml Total Protein (6.4-8.2) gm/dl Albumin (3.4-5.0) gm/dl Globulin (2.5-4.0) gm/dl Albumin/Globulin Ratio (0.9-2) Procalcitonin (0-0.5) ng/ml Urine Color Yellow Urine Appearance Clear (Clear) Urine pH 6.5 (4.5-7.5) Ur Specific [place]orn 1.017 (1.000-1.030) Urine Protein Negative (Negative) Urine Glucose (UA) Negative (Negative) Urine Ketones Negative (Negative) Urine Blood Negative (Negative) Urine Nitrite Negative (Negative) Urine Bilirubin Negative (Negative) Urine Urobilinogen Negative (Negative) Ur Leukocyte Esterase Negative (Negative) Influenza Type A (PCR) (Neg) Influenza Type B (PCR) (Neg) Administered Medications Ioversol (Optiray 320 125ml) 118 ml IV ONCE PRN PRN Reason: Interaction Checking Stop: 05/03/19 21:55 Last Admin: 04/29/19 21:56 Dose: 118 ml Documented by: [id number] Discontinued Medications Furosemide (Lasix) 40 mg IV NOW STA Stop: 04/29/19 21:20 Last Admin: 04/29/19 21:47 Dose: 40 mg Documented by: [id number] Furosemide (Lasix) 40 mg IV NOW STA Stop: 04/29/19 23:12 Last Admin: 04/29/19 23:31 Dose: 40 mg Documented by: [id number] Magnesium Sulfate/Dextrose (Magnesium Sulfate / D5w) 1 gm in 100 mls @ 100 mls/hr IV ONE ONE Stop: 04/30/19 00:10 Last Infusion: 04/30/19 00:41 Dose: 0 mls/hr Documented by: [id number] Admin: 04/29/19 23:31 Dose: 100 mls/hr Documented by: [id number] Nitroglycerin (Nitrostat) 0.4 mg SL NOW STA Stop: 04/29/19 21:27 Last Admin: 04/29/19 21:47 Dose: 0.4 mg Documented by: [id number] Nitroglycerin (Nitro-Bid 2%) 1 inch EXT NOW ONE Stop: 04/29/19 23:12 Last Admin: 04/30/19 00:00 Dose: 1 inch Documented by: [id number] Discharge Plan Visit Data Chief Complaint: Shortness of Breath/Dyspnea Stated Complaint: CHEST PAIN, SOB ED Provider: Dayne Ahn Discharge Problem: Hypoxia, Hypertension, CHF exacerbation, Fluid overload, Hypomagnesemia, Chest pain Patient Disposition: Being Evaluated by Hospitalist Forms Stand Alone Forms: My [facility] [employer] Prescriptions Prescriptions: No Action (DME) lancets [OneTouch Delica Plus Lancet] 30 gauge misc See Dose Instructions .ROUTE .MEDSUPPLY Qty: 400 RF: 3 (DME) OneTouch Verio strip See Dose Instructions .ROUTE .MEDSUPPLY Qty: 400 RF: 3 potassium chloride [K-Tab] 20 mEq tablet extended release 20 meq PO BID RF: 0 albuterol sulfate [Ventolin HFA] 90 mcg/actuation HFA aerosol inhaler 1 puffs INH QID Qty: 18 RF: 2 metoprolol succinate [Toprol XL] 200 mg tablet extended release 24 hr 200 mg PO BID RF: 0 esomeprazole magnesium [Nexium] 20 mg capsule,delayed release(DR/EC) 20 mg PO BID RF: 0 (DME) Oxygen Home Liters Per Minute See Rx Instructions .ROUTE .MEDSUPPLY Qty: 1 RF: 0 aspirin [Aspirin Low Dose] 81 mg tablet,delayed release (DR/EC) 81 mg PO QAM RF: 0 torsemide 20 mg tablet 80 mg PO BID 30 Days Qty: 240 RF: 1 nitroglycerin [Nitrostat] 0.4 mg tablet, sublingual 0.4 mg sublingual UD PRN (Reason: Chest Pain) RF: 0 diclofenac sodium [Voltaren] 1 % gel 2 gm TOP QID RF: 0 Trulicity 1.5 mg/0.5 mL pen injector 1.5 mg SQ WE RF: 0 ondansetron 4 mg tablet,disintegrating 4 mg PO Q8H PRN (Reason: nausea and vomiting) Qty: 30 RF: 0 cholecalciferol (vitamin D3) [Vitamin D3] 1,000 unit capsule 2,000 units PO BID RF: 0 Entresto 97-103 mg tablet 1 tab PO BID RF: 0 metolazone 5 mg tablet 5 mg PO MOTH RF: 0 budesonide [Pulmicort] 0.25 mg/2 mL suspension for nebulization 0.25 mg inhalation UD RF: 0 Humalog Mix 50-50 KwikPen 100 unit/mL (50-50) insulin pen 40 unit SUBCUT UD RF: 0 Referrals Referrals: Alejandra Geronimo CRNP, MS, [facility] [Primary Care Provider] - Discharge Problem: Hypertension Qualifiers: Hypertension type: unspecified Qualified Code(s): I10 - Essential (primary) hypertension CHF exacerbation Qualifiers: Heart failure type: unspecified Qualified Code(s): I50.9 - Heart failure, unspecified Fluid overload Qualifiers: Hypervolemia type: unspecified Qualified Code(s): E87.70 - Fluid overload, unspecified Chest pain Qualifiers: Chest pain type: unspecified Qualified Code(s): R07.9 - Chest pain, unspecified
[2019-04-29 21:41] LABS: Albumin Level 2.9 gm/dl (3.4-5.0); BUN Creatinine Ratio 12.4 (10-20); Calcium 8.5 mg/dl (8.5-10.1); Creatinine Clr Calc Pharmacy 134.7 ml/min; Est GFR (African American) 98.7; Est GFR (Non-African American) 85.2; Magnesium 1.7 mg/dl (1.8-2.4); Potassium 3.9 mmol/L (3.5-5.1)
--- NOTE | 2019-04-29 21:41 | XRay Report ---
XR chest 1V portable CLINICAL HISTORY: Dyspnea COMPARISON STUDY: 04/24/2019 FINDINGS: The heart is enlarged. There is a left subclavian pacer/defibrillator present. There is con tinued radiographic evidence of pulmonary edema.[Small pleural effusions are suspected. IMPRESSION: Persistent pulmonary edema pattern. ACT 112: Negative or not required by law. Electronically signed by: Garrett Muniz M.D. 04/29/2019 9:40 PM
[2019-04-29 21:46] LABS: Albumin Globulin Ratio 0.7 (0.9-2); Bilirubin,Total 1.1 mg/dl (0.2-1); Globulin 3.9 gm/dl (2.5-4.0); Total Protein 6.8 gm/dl (6.4-8.2); Troponin I 0.033 ng/ml (0-0.045)
[2019-04-29 21:47] LABS: INR 1.1 (0.9-1.1); Partial Thromboplastin Time 27.6 Seconds (21.0-31.0)
[2019-04-29 21:49] LABS: Base Excess VBG 1.6 mEq/L; Oxygen Saturation VBG 86.6 %; pH VBG 7.46 (7.36-7.41)
[2019-04-29] MEDS ORDERED: OPTIRAY 320 125ml IV PRN (21:56)
[2019-04-29 22:22] LABS: Influenza A virus by PCR Neg for Influ A (Neg); Influenza B virus by PCR Neg for Influ B (Neg)
--- NOTE | 2019-04-29 22:26 | CT Scan Report ---
CT ANGIOGRAM OF THE CHEST CLINICAL HISTORY: Dyspnea POSSIBLE PULMONARY EMBOLISM COMPARISON STUDY: 03/31/2019, chest x-ray dated 04/29/2019 TECHNIQUE: Following the IV administration of 118 mL of Optiray-320, CT angiogram of the thorax was p erformed from the thoracic inlet to the lung bases utilizing the pulmonary embolus protocol. Images a re reviewed in the axial, sagittal, and coronal planes. IV contrast was administered without complica tion. MIP imaging was performed. A dose lowering technique was utilized adhering to the principles o f ALARA. CT DOSE: 1150.25 mGy.cm FINDINGS: Right paratracheal lymph nodes are the upper limits of normal in size. There is dilatation of ascending thoracic aorta which measures 48 mm There is suboptimal pulmonary arterial opacification. Evaluation of pulmonary artery branches is limi sania due to respiratory motion artifact. No central emboli are visualized. There is a strong clinical suspicion over acute pulmonary embolism then correlation with serial leg ultrasonography would be rec ommended. There are increasing small to moderate bilateral pleural effusions. There is significant respiratory motion artifact. There is septal edema. There are scattered multifoc al groundglass opacities. Diagnostic considerations include pulmonary edema versus a superimposed inf ectious/inflammatory process. IMPRESSION: 1. Significantly limited study from technical standpoint 2. Slight increase in the small to moderate bilateral pleural effusions 3. No central emboli identified. If there is a strong suspicion over the presence of acute pulmonary embolism then correlation with serial leg ultrasonography should be considered 4. Septal edema. 5. Scattered multifocal groundglass opacities. Diagnostic considerations include foci of alveolar nighat ma versus a superimposed infectious/inflammatory process ACT 112: Negative or not required by law. Electronically signed by: Garrett Muniz M.D. 04/29/2019 10:25 PM
--- NOTE | 2019-04-29 22:57 | Ultrasound Report ---
US venous doppler LE RT CLINICAL HISTORY: Right leg swelling COMPARISON STUDY: 11/26/2018 FINDINGS: Real-time and color flow Doppler imaging were performed. Flow was seen within the femoral, popliteal and calf veins with no intraluminal thrombus demonstrated. The saphenous vein is patent. Th e examination was difficult from a technical standpoint due to the patient's body habitus. IMPRESSION: No evidence of right lower extremity DVT. ACT 112: Negative or not required by law. Electronically signed by: Garrett Muniz M.D. 04/29/2019 10:56 PM
[2019-04-29] MEDS ORDERED: NITROGLYCERIN 2% OINTMENT 30GM TUBE EXT ONE (23:11)
[2019-04-29] MEDS ORDERED: MAGNESIUM SULFATE / D5W 1 GM/100 ML BAG IV ONE (23:11)
[2019-04-29 23:14] LABS: Appearance Urine Clear (Clear); Bilirubin Urine Negative (Negative); Blood Urine Negative (Negative); Color Urine Yellow; Glucose Urine UA Negative (Negative); Ketones Urine Negative (Negative); Leukocyte Esterase Urine Negative (Negative); Nitrite Urine Negative (Negative); Protein Urine Negative (Negative); Specific Gravity Urine 1.017 (1.000-1.030); Urobilinogen Urine Negative (Negative); pH Urine 6.5 (4.5-7.5)
[2019-04-30] MEDS ORDERED: ONDANSETRON INJ 2 MG/ML 2 ML VIAL IV PRN (01:37)
[2019-04-30] MEDS ORDERED: ACETAMINOPHEN 325 MG TAB PO PRN (01:37)
[2019-04-30] MEDS ORDERED: DEXTROSE 50% 50 ML SYRINGE IV PRN (01:37)
[2019-04-30] MEDS ORDERED: GLUCOSE 40% GEL 15 GM TUBE PO PRN (01:37)
[2019-04-30] MEDS ORDERED: ALUMINUM/MAGNESIUM SUSP 30 ML UDC PO PRN (01:37)
[2019-04-30] MEDS ORDERED: MAGNESIUM HYDROXIDE SUSP 30 ML UDC PO PRN (01:37)
[2019-04-30] MEDS ORDERED: NITROGLYCERIN SL 0.4 MG/TAB TAB SL PRN (01:37)
[2019-04-30] MEDS ORDERED: GLUCAGON FOR INJ 1 MG VIAL SQ PRN (01:37)
[2019-04-30] MEDS ORDERED: CARBOHYDRATES FOR HYPOGLYCEMIA PO PRN (01:37)
[2019-04-30] MEDS ORDERED: GLUCOSE 10 TABS/TUBE PO PRN (01:37)
[2019-04-30] MEDS: CHOLECALCIFEROL 1,000 UNITS 25 MCG TAB PO SCH ×2 (02:14→08:16)
[2019-04-30] MEDS: METOPROLOL SUCC 50MG EXT REL TAB PO SCH ×2 (02:14→08:17)
[2019-04-30] MEDS: SACUBITRIL-VALSARTAN 97-103 MG TAB PO SCH ×2 (02:14→08:17)
[2019-04-30] MEDS: POTASSIUM CHLORIDE 20 MEQ TABCR PO SCH ×2 (02:14→08:16)
[2019-04-30] MEDS: FUROSEMIDE 40 MG in SYRINGE 0 ML IV SCH ×2 (05:21→14:08)
--- NOTE | 2019-04-30 05:44 | History & Physical Report ---
Date of Service April 30, 2019 Assessment & Plan (1) Acute on chronic heart failure with reduced ejection fraction and diastolic dysfunction: Acute on chronic systolic heart failure/HFrEF/NICM with most recent EF on 04/08 of 25-30%-- The patient will be admitted to telemetry for serial cardiac enzymes, serial EKG's, cardiac rhythm monitoring. He was given Lasix 40 mg IV in the ED x2, approximately 2 hours apart by ED staff, with good diuresis. Admit on furosemide 40 mg IV every 8 hours. Hold torsemide 80 mg p.o. twice daily and metolazone 5 mg p.o. MOTH Continue aspirin 81 mg daily, metoprolol succinate, and Entresto Follow BMP and magnesium levels every morning. Present on Admission?: Yes (2) NICM (nonischemic cardiomyopathy): See above Present on Admission?: Yes (3) Status post internal cardiac defibrillator procedure: Placed on 04/08/2019. He denies any instances of firing. Present on Admission?: Yes (4) Hypertension: See above Present on Admission?: Yes (5) Noncompliance with medication regimen: This is the patient's fourth admission this calendar year: Previous admissions: 02/19-02/21, 03/20-03/22, and 03/31-04/04. If he is not in the heart failure program, he needs to follow in the heart failure program to prevent/reduce further admissions Present on Admission?: Yes (6) Diabetes mellitus, type II: Hold Humalog mix 50/50, 40 units subcu daily and Trulicity. Placed on Accu-Cheks before meals and at bedtime with NovoLog coverage per scale. Present on Admission?: Yes History of Present Illness Chief Complaint: Patient presents to the emergency department with worsening shortness of breath, weight gain and fluid retention this evening, after refusing to come to the emergency department in the afternoon, at the recommendation of her PCPs office, when seen there earlier in the day today. Primary Care Provider: CM Vargas, MS, [employer] DEPARTMENT CHAIR-C The patient is a 43-year-old male with a past medical history including hypertension, nonproliferative retinopathy due to diabetes, AICD, syncope, nonischemic cardiomyopathy, hypertensive urgency, acute on chronic heart failure/HFrEF, dilation of thoracic aorta, hypertension, pulmonary edema, nonsustained V. tach, hypertensive urgency, iliac artery aneurysm, morbid obesity, peripheral neuropathy, hemoptysis, GERD and COPD. He has been seen in the outpatient PCP office earlier in the day today due to symptoms of shortness of breath, weight gain and fluid retention, it was recommended at that time to come to the ED for assessment, however, patient refused at that time. His shortness of breath got worse as the day progressed, and he was brought in to the emergency department by ambulance this evening. In the emergency department, work-up suggested CHF, patient was given Lasix 40 mg IV x2, 2 hours apart, and had a brisk diuresis. Allergies Allergy/AdvReac Type Severity Reaction Status Date / Time ceftriaxone Allergy Severe SHORTNESS Verified 04/29/19 23:08 OF BREATH lidocaine Allergy Severe SHORTNESS Verified 04/29/19 23:08 OF BREATH, diaphoretic, hives procaine Allergy Severe SHORTNESS Verified 04/29/19 23:08 OF BREATH, diaphoretic, hives amoxicillin Allergy Intermediate HIVES/FACIAL Verified 04/29/19 23:08 SWELLING clavulanic acid Allergy Intermediate HIVES/FACIAL Verified 04/29/19 23:08 SWELLING lisinopril Allergy Intermediate HIVES Verified 04/29/19 23:08 albuterol Allergy Mild proair Verified 04/29/19 23:08 "trouble taking breaths" acetaminophen AdvReac Mild NAUSEA Verified 04/29/19 23:08 Home Medications Home Medications Medication Instructions Recorded Confirmed Type esomeprazole magnesium 20 mg 20 mg PO BID cap 09/05/18 04/29/19 History capsule,delayed release aspirin 81 mg tablet,delayed 81 mg PO QAM 09/17/18 04/29/19 History release cholecalciferol (vitamin D3) 25 2,000 units PO BID cap 09/17/18 04/29/19 History mcg (1,000 unit) capsule OneTouch Delica Plus Lancet 30 #400 ea NS 12/23/18 04/29/19 Rx gauge OneTouch Verio #400 ea NS 12/23/18 04/29/19 Rx torsemide 80 mg PO BID 30 Days #240 tab 02/21/19 04/29/19 Rx potassium chloride 20 mEq 20 meq PO BID 02/25/19 04/29/19 History tablet,extended release albuterol sulfate 90 mcg/actuation 1 puffs INH QID #18 gm 03/26/19 04/29/19 Rx aerosol inhaler metoprolol succinate 200 mg 200 mg PO BID 04/10/19 04/29/19 History tablet,extended release 24 hr sacubitril 97 mg-valsartan 103 mg 1 tab PO BID tab 04/10/19 04/29/19 History tablet Trulicity 1.5 mg SQ WE 04/24/19 04/29/19 History diclofenac sodium [Voltaren] 2 gm TOP QID 04/24/19 04/29/19 History nitroglycerin [Nitrostat] 0.4 mg SUBLINGUAL UD PRN 04/24/19 04/29/19 History ondansetron 4 mg PO Q8H PRN #30 tab 04/24/19 04/29/19 Rx Oxygen Home #1 ea 04/29/19 04/29/19 Rx budesonide [Pulmicort] 0.25 mg INHALATION UD 04/29/19 04/29/19 History insulin lispro protamin-lispro 40 unit SUBCUT UD 04/29/19 04/29/19 History [Humalog Mix 50-50 KwikPen] metolazone 5 mg PO MOTH 04/29/19 04/29/19 History Past Med/Surg History Social History Preferred Language: Turkmen Communication Ability: Effective Visual Impairment: No Limitations Hearing Ability: Normal 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 Hand Required: No Beliefs That Will Affect Care: None marital status: Current Living Situation: Spouse current occupational status: unemployed Other Information That Helps Us Care for You: No Feels Safe at Home: Yes Safety Concerns: Feels Safe At This Time Smoking Status: Former smoker Tobacco Type: cigarettes ; Age Started Using Tobacco: 14 ; Age Quit Using Tobacco: 18 ; Second Hand Exposure: No ; Hx Alcohol Use: Yes Alcohol type: wine Alcohol Intake Frequency: Rarely Hx Substance Use: No Childhood Exposure to Second-Hand Smoke: Yes Dental Care, Regularly: Yes Physical Activity Frequency: Does not Exercise Review of Systems Review of Systems: The patient denies chest pain, palpitations, cough, sore throat, fevers, chills, sweats, nausea, vomiting, diarrhea , constipation, abdominal pain, pelvic pain, blood in urine or stool, dysuria, urinary frequency or urgency, lightheadedness, dizziness, headache, memory loss, loss of consciousness, rash, abnormal bruising or bleeding, imbalance, focal or generalized weakness, numbness or tingling in arms or legs, back or neck pain, or night sweats. The review of systems is otherwise negative other than for that already noted above, and at least 10 systems have been reviewed. Physical Exam Physical Exam: The patient is awake, alert and oriented 3, morbidly obese, normocephalic and atraumatic, sitting upright in bed and in mild respiratory distress. HEENT--PERRL, EOMI, mucous membranes and oropharynx moist. Neck--supple. No JVD. No bruits. Thyroid normal, trachea midline, no adenopathy. Heart--normal S1 and S2. No murmurs, rubs or gallops. Lungs--crackles at the bases to shelter up bilaterally. Mild respiratory distress, no accessory muscle use. Abdomen--normal bowel sounds and soft. Nontender. Nondistended. Morbidly obese Extremities--no cyanosis or clubbing. 3+ bilateral pretibial pitting edema. Dermatologic--chronic venous stasis. Neurologic--cranial nerves II through XII grossly intact. Rheumatologic--range of motion limited by body habitus Psychiatric--normal affect. Results & Data Vital Signs (Past 12 Hours) Vital Signs Temp Pulse Pulse Resp BP BP Pulse Ox 04/30/19 04:06 97.7 F 97 H 20 171/99 H 94 04/30/19 02:06 110 H 04/30/19 01:30 97.7 F 97 H 20 203/140 H 94 04/30/19 01:00 112 H 25 H 197/121 H 92 04/29/19 22:54 111 H 23 199/120 H 95 04/29/19 21:30 115 H 30 H 173/140 H 96 04/29/19 21:10 115 H 24 162/128 H 97 04/29/19 20:55 97.7 F 121 H 30 H 217/160 H 85 L Laboratory Results Laboratory Results WBC 9.63 K/uL (4.8-10.8) 04/29/19 21:05 RBC 4.64 M/uL (4.7-6.1) L 04/29/19 21:05 Hgb 13.3 g/dL (14.0-18.0) L 04/29/19 21:05 Hct 39.9 % (42-52) L 04/29/19 21:05 MCV 86.0 fL (80-100) 04/29/19 21:05 MCH 28.7 pg (25-34) 04/29/19 21:05 MCHC 33.3 g/dL (32-36) 04/29/19 21:05 RDW Std Deviation 49.2 fL (36.4-46.3) H 04/29/19 21:05 RDW Coeff of Zoltan 15.7 % (11.5-14.5) H 04/29/19 21:05 Plt Count 227 K/uL (130-400) 04/29/19 21:05 MPV 9.8 fL (7.4-10.4) 04/29/19 21:05 Immature Gran % (Auto) 0.3 % 04/29/19 21:05 Neut % (Auto) 74.0 % 04/29/19 21:05 Lymph % (Auto) 20.6 % 04/29/19 21:05 [place] % (Auto) 4.3 % 04/29/19 21:05 Eos % (Auto) 0.6 % 04/29/19 21:05 Baso % (Auto) 0.2 % 04/29/19 21:05 Immature Gran # (Auto) 0.03 K/uL (0.00-0.02) H 04/29/19 21:05 Neut # (Auto) 7.13 K/uL (1.4-6.5) H 04/29/19 21:05 Lymph # (Auto) 1.98 K/uL (1.2-3.4) 04/29/19 21:05 [place] # (Auto) 0.41 K/uL (0.11-0.59) 04/29/19 21:05 Eos # (Auto) 0.06 K/uL (0-0.5) 04/29/19 21:05 Baso # (Auto) 0.02 K/uL (0-0.2) 04/29/19 21:05 PT 12.0 Seconds (9.0-12.0) 04/29/19 21:05 INR 1.1 (0.9-1.1) 04/29/19 21:05 APTT 27.6 Seconds (21.0-31.0) 04/29/19 21:05 PTT Ratio 1.0 04/29/19 21:05 VBG pH 7.46 (7.36-7.41) H 04/29/19 21:35 VBG pCO2 37 mmHg (38-50) L 04/29/19 21:35 VBG pO2 53 mmHg 04/29/19 21:35 VBG HCO3 25 mmol/L 04/29/19 21:35 VBG O2 Saturation 86.6 % 04/29/19 21:35 VBG Base Excess 1.6 mEq/L 04/29/19 21:35 Barometric Pressure 738.7 mm/Hg 04/29/19 21:35 Sodium 139 mmol/L (136-145) 04/29/19 21:05 Potassium 3.9 mmol/L (3.5-5.1) 04/29/19 21:05 Chloride 108 mmol/L (98-107) H 04/29/19 21:05 Carbon Dioxide 25 mmol/L (21-32) 04/29/19 21:05 Anion Gap 6.0 (3-11) 04/29/19 21:05 BUN 13 mg/dl (7-18) 04/29/19 21:05 Creatinine 1.07 mg/dl (0.6-1.4) 04/29/19 21:05 Est Cr Clr Drug Dosing 134.7 ml/min 04/29/19 21:05 Est GFR ( Amer) 98.7 04/29/19 21:05 Est GFR (Non-Af Amer) 85.2 04/29/19 21:05 BUN/Creatinine Ratio 12.4 (10-20) 04/29/19 21:05 Glucose 232 mg/dl (70-99) H 04/29/19 21:05 Calcium 8.5 mg/dl (8.5-10.1) 04/29/19 21:05 Magnesium 1.7 mg/dl (1.8-2.4) L 04/29/19 21:05 Total Bilirubin 1.1 mg/dl (0.2-1) H 04/29/19 21:05 AST 13 U/L (15-37) L 04/29/19 21:05 ALT 19 U/L (12-78) 04/29/19 21:05 Alkaline Phosphatase 88 U/L (45-117) 04/29/19 21:05 Troponin I 0.044 ng/ml (0-0.045) 04/30/19 01:59 NT-Pro-B Natriuret Pep 4613 pg/ml (0-450) H 04/29/19 21:05 Total Protein 6.8 gm/dl (6.4-8.2) 04/29/19 21:05 Albumin 2.9 gm/dl (3.4-5.0) L 04/29/19 21:05 Globulin 3.9 gm/dl (2.5-4.0) 04/29/19 21:05 Albumin/Globulin Ratio 0.7 (0.9-2) L 04/29/19 21:05 Procalcitonin < 0.05 ng/ml (0-0.5) 04/29/19 21:05 Urine Color Yellow 04/29/19 23:02 Urine Appearance Clear (Clear) 04/29/19 23:02 Urine pH 6.5 (4.5-7.5) 04/29/19 23:02 Ur Specific [place] 1.017 (1.000-1.030) 04/29/19 23:02 Urine Protein Negative (Negative) 04/29/19 23:02 Urine Glucose (UA) Negative (Negative) 04/29/19 23:02 Urine Ketones Negative (Negative) 04/29/19 23:02 Urine Blood Negative (Negative) 04/29/19 23:02 Urine Nitrite Negative (Negative) 04/29/19 23:02 Urine Bilirubin Negative (Negative) 04/29/19 23:02 Urine Urobilinogen Negative (Negative) 04/29/19 23:02 Ur Leukocyte Esterase Negative (Negative) 04/29/19 23:02 Influenza Type A (PCR) Neg for Influ A (Neg) 04/29/19 21:35 Influenza Type B (PCR) Neg for Influ B (Neg) 04/29/19 21:35 Diagnostic Findings [facility], [place] [phone] CT Scan Report Patient: HARDIK LOVEdmit Date: 04/29/19 MR#: [id number]: [address] Acct ID:[id number]: Date: [address] Zip: [place] [address] Age: 43Location: ED Sex: M Room/Bed: Att Phy:Diagnosis: CHEST PAIN, SOB Enedina Phy: BrianAlejandra cast TARUNNPService Date: 04/29/19 [facility] Phy: Shon Hernandez, DOInterpreting Phy: Garrett Muniz MD Admit Phy: Ordering Phy: Dayne Ahn M.D. cc: ~ CT ANGIOGRAM OF THE CHEST CLINICAL HISTORY: Dyspnea POSSIBLE PULMONARY EMBOLISM COMPARISON STUDY: 03/31/2019, chest x-ray dated 04/29/2019 TECHNIQUE: Following the IV administration of 118 mL of Optiray-320, CT angiogram of the thorax was performed from the thoracic inlet to the lung bases utilizing the pulmonary embolus protocol. Images are reviewed in the axial, sagittal, and coronal planes. IV contrast was administered without complication. MIP imaging was performed. A dose lowering technique was utilized adhering to the principles of ALARA. CT DOSE: 1150.25 mGy.cm FINDINGS: Right paratracheal lymph nodes are the upper limits of normal in size. There is dilatation of ascending thoracic aorta which measures 48 mm There is suboptimal pulmonary arterial opacification. Evaluation of pulmonary artery branches is limited due to respiratory motion artifact. No central emboli are visualized. There is a strong clinical suspicion over acute pulmonary embolism then correlation with serial leg ultrasonography would be recommended. There are increasing small to moderate bilateral pleural effusions. There is significant respiratory motion artifact. There is septal edema. There are scattered multifocal groundglass opacities. Diagnostic considerations include pulmonary edema versus a superimposed infectious/inflammatory process. IMPRESSION: 1. Significantly limited study from technical standpoint 2. Slight increase in the small to moderate bilateral pleural effusions 3. No central emboli identified. If there is a strong suspicion over the presence of acute pulmonary embolism then correlation with serial leg ultrasonography should be considered 4. Septal edema. 5. Scattered multifocal groundglass opacities. Diagnostic considerations include foci of alveolar edema versus a superimposed infectious/inflammatory process ACT 112: Negative or not required by law. Electronically signed by: Garrett Muniz M.D. 04/29/2019 10:25 PM Dictated: 04/29/192217 Transcribed: 04/29/192217 [facility] [place] [phone] XRay Report Patient: HARDIK LOVE Date: 04/29/19 MR#: [id number]: [address] Acct ID:[id number]: Date: 1975[facility] Zip: [place] [address] Age: 43Location: ED Sex: M Room/Bed: Att Phy:Diagnosis: CHEST PAIN, SOB Enedina Phy: Ososcolettee, Alejandra CRNPService Date: 04/29/19 Fam Phy: Shon Hernandez O., DOInterpreting Phy: Garrett Muniz MD Admit Phy: Ordering Phy: Dayne Ahn M.D. cc: ~ XR chest 1V portable CLINICAL HISTORY: Dyspnea COMPARISON STUDY: 04/24/2019 FINDINGS: The heart is enlarged. There is a left subclavian pacer/defibrillator present. There is continued radiographic evidence of pulmonary edema.[Small pleural effusions are suspected. IMPRESSION: Persistent pulmonary edema pattern. ACT 112: Negative or not required by law. Electronically signed by: Garrett Muniz M.D. 04/29/2019 9:40 PM Dictated: 04/29/192138 Transcribed: 04/29/192138 [facility] [place] [phone] Ultrasound Report Patient: HARDIK LOVE Date: 04/29/19 MR#: [id number]: [address] Acct ID:[id number]: Date: 1975[facility] Zip: [place] [address] Age: 43Location: ED Sex: M Room/Bed: Att Phy:Diagnosis: CHEST PAIN, SOB Enedina Phy: Ososcolettee, Alejandra TARUNNPService Date: 04/29/19 Fam Phy: Shon Hernandez., DOInterpreting Phy: Garrett Muniz MD Admit Phy: Ordering Phy: Dayne Ahn M.D. cc: ~ US venous doppler LE RT CLINICAL HISTORY: Right leg swelling COMPARISON STUDY: 11/26/2018 FINDINGS: Real-time and color flow Doppler imaging were performed. Flow was seen within the femoral, popliteal and calf veins with no intraluminal thrombus demonstrated. The saphenous vein is patent. The examination was difficult from a technical standpoint due to the patient's body habitus. IMPRESSION: No evidence of right lower extremity DVT. ACT 112: Negative or not required by law. Electronically signed by: Garrett Muniz M.D. 04/29/2019 10:56 PM Dictated: 04/29/192255 Transcribed: 04/29/192255 Code Status & VTE Plan Code Status Full code VTE Prophylaxis Plan VTE Prophylaxis will be ordered: Yes PG Care Time/CCT Total # of Minutes Spent Total Time Spent with Patient: Total time spent is greater than 50% in coordination of care (as documented) at patient's floor/unit and/or counseling patient: Coding Level of Care Code 45903 Initial Inpt Care Lvl 3 Diagnoses Acute on chronic heart failure with reduced ejection fraction and diastolic dysfunction I50.43 NICM (nonischemic cardiomyopathy) I42.8 Status post internal cardiac defibrillator procedure Z95.810 Hypertension I10 Hypertension type: unspecified Noncompliance with medication regimen Z91.14 Diabetes mellitus, type II E11.69; Z79.4 Diabetes mellitus manager long term care insulin use: with manager long term care use Diabetes mellitus complication status: with other specified complication (1) Hypertension Hypertension type: unspecified Qualified Code(s): I10 - Essential (primary) hypertension (2) Diabetes mellitus, type II Diabetes mellitus manager long term care insulin use: with manager long term care use Diabetes mellitus complication status: with other specified complication Qualified Code(s): E11.69 - Type 2 diabetes mellitus with other specified complication; Z79.4 - watermaster (current) use of insulin
[2019-04-30] MEDS ORDERED: FUROSEMIDE 40 MG/4 ML VIAL IV SCH (06:00)
[2019-04-30 06:11] LABS: Basophils # (auto) 0.02 K/uL (0-0.2); Basophils % (auto) 0.2 %; Eosinophils # (auto) 0.08 K/uL (0-0.5); Eosinophils % (auto) 0.8 %; Hematocrit (blood only) 42.2 % (42-52); Immature Granulocytes # (auto) 0.04 K/uL (0.00-0.02); Immature Granulocytes % (auto) 0.4 %; Lymphocytes # (auto) 1.65 K/uL (1.2-3.4); Lymphocytes % (auto) 16.5 %; Mean Corpuscular Hemoglobin 28.1 pg (25-34); Mean Corpuscular Hgb Conc 33.2 g/dL (32-36); Mean Corpuscular Volume 84.6 fL (80-100); Mean Platelet Volume 9.7 fL (7.4-10.4); Neutrophils # (auto) 7.51 K/uL (1.4-6.5); Neutrophils % (auto) 75.1 %; Platelet Count 225 K/uL (130-400); RDW Coefficient of Variation 15.7 % (11.5-14.5); RDW Standard Deviation 47.9 fL (36.4-46.3); Red Blood Count 4.99 M/uL (4.7-6.1)
[2019-04-30 06:30] LABS: INR 1.1 (0.9-1.1); Prothrombin Time 11.8 Seconds (9.0-12.0)
[2019-04-30 06:45] LABS: Albumin Level 3.2 gm/dl (3.4-5.0); BUN Creatinine Ratio 10.5 (10-20); Calcium 8.7 mg/dl (8.5-10.1); Creatinine Clr Calc Pharmacy 137.2 ml/min; Est GFR (African American) 102.2; Est GFR (Non-African American) 88.1; Potassium 3.7 mmol/L (3.5-5.1)
[2019-04-30 06:48] LABS: Albumin Globulin Ratio 0.8 (0.9-2); Bilirubin,Total 1.3 mg/dl (0.2-1); Globulin 4.1 gm/dl (2.5-4.0); Total Protein 7.3 gm/dl (6.4-8.2)
[2019-04-30] MEDS ORDERED: BUDESONIDE 0.25 MG/2 ML VIAL (PULMICORT) INH SCH (07:00)
[2019-04-30] MEDS: DICLOFENAC SOD 1% GEL 100 GM TUBE EXT SCH ×3 (08:17→16:25)
[2019-04-30] MEDS: ALBUTEROL HFA 8 GM INHALER INH SCH ×3 (08:17→16:25)
[2019-04-30] MEDS: INSULIN ASPART 100 UNITS/ML 3 ML PEN SC SCH ×3 (08:18→17:16)
[2019-04-30] MEDS ORDERED: PANTOprazole 40 MG TAB PO SCH (09:00)
[2019-04-30] MEDS ORDERED: ASPIRIN 81 MG ECTAB PO SCH (09:00)
[2019-04-30 11:27] VITALS: TEMP 97.9
--- NOTE | 2019-04-30 12:08 | Hospitalist Progress Note ---
Date of Service April 30, 2019 Assessment & Plan (1) Acute on chronic heart failure with reduced ejection fraction and diastolic dysfunction: Alok Huff is a 43yo M with a history of AoC CHFrEF 25-30%, Non- ischemic cardiomyopathy, HTN, DM2, AICD, thoracic aorta dilation, iliac aneurysm, GERD, COPD and multiple hospital admissions for medication noncompliance who presented to his PCP with shortness of breath, weight increase, and fluid retention. After initially refusing ED transfer he presented to the ED by EMS for shortness of breath and was admitted for acute hypoxic respiratory failure 2/2 AoC CHF exacerbation. Acute Hypoxic Resp Failure 2/2 AoC HFrEF - CXR with evidence of pulmonary edema - CT-C shows no PE, technically limited study. Ground glass opacities, bilateral effusions, septal edema - Lasix, AoC HFrEF management as below - Supplemental O2 titrate to 90% SpO2. On 5L 04/29. - Influenza A negative Acute on chronic systolic heart failure/HFrEF/NICM with EF 2/25 25-30% with ICD in place - proBNP 4613. 167 on 01/19. - Clinically volume overloaded on admission - Lasix 40mg IV Q2H x2 doses in IV with 6L UOP overnight - Lasix 40mg IV Q8H - Hold [employer] torsemide 80mg and metolazone 5mg PO / - Continue [employer] [id number] daily, Metoprolol Succinate 200mg daily, and entresto 97/103mg BID - BMP + Mg daily - Strict I&Os - Establish with heart failure clinic on d/c - Ischemic ASCVD risk 1.9%, his HF is nonischmic. No indication for statin at this time. - RLE swelling. RLE Doppler negative. - Former smoker. Hypertension - Entresto, MTP, ASA as above DM Type 2 - On 50/50 Lispro:protamine [employer] - Admitted on [employer] antiglycemics - Prior hospitalizations with lower requirements likely representing dietary differences - Insulin NPH 10u BID, ISS CF 25 / Ratio 1:9 while inpatient. Adjust as needed. Discussed with pharmacy. - Glucose checks AC/HS, BMP daily - Last A1C in February 7.0% Medication noncompliance - Previous admissions: 02/19-02/21, 03/20-03/22, and 03/31-04/04. - Pt is a good candidate for heart failure clinic DVT Prophylaxis: [] FEN/GI: Salt restriction, DM2 diet/heart healthy Code Status: Full Code (2) NICM (nonischemic cardiomyopathy): (3) Fluid overload: (4) Hypertension: (5) Hypoxia: (6) Osteoarthritis of right knee: (7) Shortness of breath: (8) Dilatation of thoracic aorta: (9) Acute respiratory failure with hypoxia: Admission and Anticipated Discharge Date Admission Date: April 30, 2019 Results & Data ([facility]) Vital Signs (Past 12 Hours) Vital Signs Temp Pulse Pulse Pulse Resp BP BP 04/30/19 11:24 36.6 C 68 22 143/105 H 04/30/19 08:00 94 H 04/30/19 07:26 36.7 C 87 20 168/107 H 04/30/19 07:05 98 H 20 04/30/19 04:06 36.5 C 97 H 20 171/99 H 04/30/19 02:06 110 H 04/30/19 01:30 36.5 C 97 H 20 203/140 H 04/30/19 01:00 112 H 25 H 197/121 H Pulse Ox 04/30/19 11:24 95 04/30/19 08:00 04/30/19 07:26 91 04/30/19 07:05 96 04/30/19 04:06 94 04/30/19 02:06 04/30/19 01:30 94 04/30/19 01:00 92 (1) Hypertension Hypertension type: unspecified Qualified Code(s): I10 - Essential (primary) hypertension (2) Fluid overload Hypervolemia type: unspecified Qualified Code(s): E87.70 - Fluid overload, unspecified
--- NOTE | 2019-04-30 13:07 | Discharge Summary ---
Date of Service April 30, 2019 Admission HPI Per Admitting Provider The patient is a 43-year-old male with a past medical history including hypertension, nonproliferative retinopathy due to diabetes, AICD, syncope, nonischemic cardiomyopathy, hypertensive urgency, acute on chronic heart failure/HFrEF, dilation of thoracic aorta, hypertension, pulmonary edema, nonsustained V. tach, hypertensive urgency, iliac artery aneurysm, morbid obesity, peripheral neuropathy, hemoptysis, GERD and COPD. He has been seen in the outpatient PCP office earlier in the day today due to symptoms of shortness of breath, weight gain and fluid retention, it was recommended at that time to come to the ED for assessment, however, patient refused at that time. His shortness of breath got worse as the day progressed, and he was brought in to the emergency department by ambulance this evening. In the emergency department, work-up suggested CHF, patient was given Lasix 40 mg IV x2, 2 hours apart, and had a brisk diuresis. Admission Exam Per Admitting Provider The patient is awake, alert and oriented 3, morbidly obese, normocephalic and atraumatic, sitting upright in bed and in mild respiratory distress. HEENT--PERRL, EOMI, mucous membranes and oropharynx moist. Neck--supple. No JVD. No bruits. Thyroid normal, trachea midline, no adenopathy. Heart--normal S1 and S2. No murmurs, rubs or gallops. Lungs--crackles at the bases to detention up bilaterally. Mild respiratory distress, no accessory muscle use. Abdomen--normal bowel sounds and soft. Nontender. Nondistended. Morbidly obese Extremities--no cyanosis or clubbing. 3+ bilateral pretibial pitting edema. Dermatologic--chronic venous stasis. Neurologic--cranial nerves II through XII grossly intact. Rheumatologic--range of motion limited by body habitus Psychiatric--normal affect. Principal Diagnosis AoC CHF Discharge Exam General: A&Ox3. NAD. Cooperative. HEENT: Atraumatic, normocephalic. Pulm: CTAB A&P. -wheezes, -rales, -rhonchi. Symmetrical chest rise. No increase work of breathing. No respiratory distress. Cardiac: RRR, -mrg. Radial pulses intact and symmetrical. Abdominal: Obese, soft. NT. Extremities: Obese, mild pitting edema in the ankles bilaterally. t Discharge Data Allergies Allergy/AdvReac Type Severity Reaction Status Date / Time ceftriaxone Allergy Severe SHORTNESS Verified 04/29/19 23:08 OF BREATH lidocaine Allergy Severe SHORTNESS Verified 04/29/19 23:08 OF BREATH, diaphoretic, hives procaine Allergy Severe SHORTNESS Verified 04/29/19 23:08 OF BREATH, diaphoretic, hives amoxicillin Allergy Intermediate HIVES/FACIAL Verified 04/29/19 23:08 SWELLING clavulanic acid Allergy Intermediate HIVES/FACIAL Verified 04/29/19 23:08 SWELLING lisinopril Allergy Intermediate HIVES Verified 04/29/19 23:08 albuterol Allergy Mild proair Verified 04/29/19 23:08 "trouble taking breaths" acetaminophen AdvReac Mild NAUSEA Verified 04/29/19 23:08 Consultations 04/29/19 23:17 ED Decision to Admit Stat 04/30/19 01:37 Consult Case Management - Discharge Planning Routine 04/30/19 08:07 Consult Case Management - Discharge Planning Routine Ordered Studies 04/29/19 21:19 CT angio chest PE protocol Stat 04/29/19 21:26 US venous doppler LE RT Stat Hospital Course (1) Acute on chronic heart failure with reduced ejection fraction and diastolic dysfunction: Alok Huff is a 43yo M with a history of AoC CHFrEF 25-30%, Non- ischemic cardiomyopathy, HTN, DM2, AICD, thoracic aorta dilation, iliac aneurysm, GERD, COPD and multiple hospital admissions for medication noncompliance who presented to his PCP with shortness of breath, weight increase, and fluid retention. After initially refusing ED transfer he presented to the ED by EMS for shortness of breath and was admitted for acute hypoxic respiratory failure 2/2 AoC CHF exacerbation. To Do: 1. BMP on 05/02/2019 2. Adjust Bumex as needed Acute Hypoxic Resp Failure 2/2 AoC HFrEF Alok Huff presented with acute hypoxic RF. He had recent weight gain, leg swelling, and shortness of breath prior to admission. On admit chest XR showed evidence of pulmonary edema. CT-C was technically limited, but did not show evidence of pulmonary embolism. CT-C did show diffuse ground glass opacities, bilateral effusions, and septal edema suspect to be secondary to acute on chronic CHF as managed below. Mr. Huff was placed on supplemental oxygen and diuresed with clinical improvement as noted below. He was discharged to continue his prior to admission oxygen supplementation after diuresis and clinical improv ement. Influenza A testing was negative and imaging did not suggest underlying pneumonia. CT did not suggest PE, RLE doppler was negative for thrombosis. Acute on chronic systolic heart failure/HFrEF/NICM with EF 04/08 25-30% with ICD in place Alok has a history of non-ischemic cardiomyopathy with HFrEF most recently with EF 25-30% and multiple hospital admissions for fluid overload. On admission he was clinically volume overloaded, CXR as noted above, with a proBNP of 4613. He was given lasix x2 in the ED with rapid diuresis, and output >7L over the night 12 hours. His ADMINISTRATIVE AIDE torsemide and metolazone was held. He was continued on his prior to admission aspirin, metoprolol, and entresto. He clinically improved with diuresis and lungs were clear at time of discharge. His ischemic ASCVD risk was calculated at 1.9%, statin was not indicated at this time. On chart review pt has had variable response to high doses of torsemide, but was on high dose (4mg BID) bumetanide last year which was stopped following MIKEY. Suspect he has gut edema impairing absorption, pt was converted to 2mg bumex by mouth daily with followup to his PCP and cardiology. He was given a script for a BMP to follow kidney function in two days, and will address further at his cardiology appointment. Hypertension Patient was continued on his prior to admission Entresto, MTP, ASA as above DM Type 2 Alok has a history of T2DM on 50/50 Lispro:protamine prior to admission. He was admitted and converted to insulin NPH 10u BID, ISS CF 25 / Ratio 1:9 while inpatient based on prior admission requirements. Last A1C in February 7.0%. He had adequate glycemic control during admission. Medication noncompliance Alok has a history of medical noncompliance and dietary indescritions leading to multiple admissions for AoC CHF with recent 02/19-02/21, 03/20-03/22, and 03/31-04/04. He has poor followup, but was referred to the heart failure clinic on discharge. PCP to manage further, and has already set him up with home oxygen. FEN/GI: Salt restriction, DM2 diet/heart healthy Code Status: Full Code Total Time Total Time Spent Total Time Spent (In Minutes): >30 Discharge Plan Discharge Items Patient Disposition: Home - Self-Care Reason For Visit: CHF EXACERBATION Discharge Diagnosis: Acute on Chronic CHF with Hypoxic Respiratory Failure Activity: Resume your previous activity Non-emergency contact: Primary Care Provider Call non-emergency contact if: you have any medication questions, your symptoms worsen, your pain is not controlled, your pain is worsening, your pain is concerning for you and you have a fever Follow-up/Referrals: Alejandra Geronimo, CM, MS, ORGANIZATION DEVELOPMENT CONSULTANT-C [Primary Care Provider] - Shyanne Stern PA-C [Physician Die Cleaner] - 05/02/19 2:45 pm (Please, follow up at [facility] with Shyanne Stern PA-C on SundayMay 01 at 2:45 pm. *If you need to change this appointment, call the office at [phone].) Diet: Carb Consistent or DM2 and Heart Healthy Addtl Attending Provider Instructions: You were seen in the hospital for respiratory failure due to fluid overload from an exacerbation of your heart failure. You were treated with medications to remove fluid and recovered to your normal baseline. You have had medication changes and followup appointments made as below. Please STOP taking furosemide. This has been replaced with bumex (bumetanide) Please START taking bumex, a fluid medication. Please take bumex (bumetanide) 2mg by mouth twice daily. You will need to have your kidney function checked in 2 days as noted below. If you develop any lightheadedness, dizziness, rash, chest pain, chest pressure, decreased urination, or other new or concerning symptoms please contact your primary care provider at the number below, or call 911 for re-evaluation in the emergency department if you are very concerned. You will need to have your kidney function checked in two days. This will be arranged at your cardiology appointment. A followup appointment has been scheduled for you with cardiology as above. Your appointment is scheduled on 05/02/2019 at 2:45pm. If you need to change this appointment, please call the [facility] office at . A followup appointment is being scheduled for you with Dr. Geronimo. You should be seen seen within one week. You should receive a call to confirm this appointment. If you do not receive a call within 48 hours to confirm this appointment, or need to change this appointment, please call the provider's office at [phone]. It is critically important to maintain a low salt (<1500mg/day) diet due to your heart failure. Excess salt intake will cause fluid overload that may affect your breathing regardless of fluid medications. Please maintain a low salt diet with less than 1500mg of sodium per day. If you develop any new or worsening symptoms including fever, chills, sweats, chest pain, chest pressure, difficulty breathing, uncontrolled nausea/vomiting, rash, wheezing, passing out or nearly passing out, bleeding, black/bloody bowel movements, or other new or concerning symptoms please call your primary care physician at [phone]. or call 911 for re-evaluation in the emergency department if you are very concerned. Pending Studies at Discharge: Yes Studies:: BMP on Sunday05/02/2019 Stand-Alone Forms: My [facility] [employer], Smoking Cessation Medications and DC Order Prescriptions: New bumetanide 2 mg tablet 2 mg PO BID 30 Days Qty: 60 RF: 0 Continued (DME) lancets [OneTouch Delica Plus Lancet] 30 gauge misc See Dose Instructions .ROUTE .MEDSUPPLY Qty: 400 RF: 3 (DME) OneTouch Verio strip See Dose Instructions .ROUTE .MEDSUPPLY Qty: 400 RF: 3 potassium chloride [K-Tab] 20 mEq tablet extended release 20 meq PO BID RF: 0 albuterol sulfate [Ventolin HFA] 90 mcg/actuation HFA aerosol inhaler 1 puffs INH QID Qty: 18 RF: 2 metoprolol succinate [Toprol XL] 200 mg tablet extended release 24 hr 200 mg PO BID RF: 0 esomeprazole magnesium [Nexium] 20 mg capsule,delayed release(DR/EC) 20 mg PO BID RF: 0 (DME) Oxygen Home Liters Per Minute See Rx Instructions .ROUTE .MEDSUPPLY Qty: 1 RF: 0 aspirin [Aspirin Low Dose] 81 mg tablet,delayed release (DR/EC) 81 mg PO QAM RF: 0 nitroglycerin [Nitrostat] 0.4 mg tablet, sublingual 0.4 mg sublingual UD PRN (Reason: Chest Pain) RF: 0 diclofenac sodium [Voltaren] 1 % gel 2 gm TOP QID RF: 0 Trulicity 1.5 mg/0.5 mL pen injector 1.5 mg SQ WE RF: 0 ondansetron 4 mg tablet,disintegrating 4 mg PO Q8H PRN (Reason: nausea and vomiting) Qty: 30 RF: 0 cholecalciferol (vitamin D3) [Vitamin D3] 1,000 unit capsule 2,000 units PO BID RF: 0 Entresto 97-103 mg tablet 1 tab PO BID RF: 0 metolazone 5 mg tablet 5 mg PO MOTH RF: 0 budesonide [Pulmicort] 0.25 mg/2 mL suspension for nebulization 0.25 mg inhalation UD RF: 0 Humalog Mix 50-50 KwikPen 100 unit/mL (50-50) insulin pen 40 unit SUBCUT UD RF: 0 Discontinued torsemide 20 mg tablet 80 mg PO BID 30 Days Qty: 240 RF: 1 Discharge Orders: Discharge Order (Routine); Ordered 04/30/19 Ordered By: Negro Talamantes/Other Patient Handouts: Heart Failure, Bumetanide tablets Admission Data Admit Date/Time: 04/30/19 00:32 Attending Provider: Ananth Soto Admit Provider: Noé Jaquez Primary Care Provider: Alejandra Geronimo Other Providers: Noé Jaquez Other Interventions: Discharge Summary Assessment (RN) Last Done: 04/30/19 17:10 DC Date/Time DO NOT enter until pt leaves facility: 04/30/19 18:08 Supervising Physician Co-Signing Physician Notes I personally examined the patient and verified all caraballo points of history and exam, discussed case, and agree with decision making with Dr Olson. feeling better/breathing better. nursing, dr olson, and myself all noted rather significant urine output with lasix dosing IV not too far off from his home PO dosing (or maybe a little less) - he affirms compliance and low sodium; to dr olson family confirms that he's actaully been pretty good with compliance and reasonably good at avoiding sodium. chart review shows a change from bumex in october after being in hospital dehydrated; after that is around when his current run of readmissions began. vitals noted nad heent nc at mmm lungs cta bl no r/r/w good effort skin no rashes no pallor or icterus acute on chronic systolic chf - ?poor gut absorption of PO diuretics given his brisk response as above noted? change back to PO bumex, close f/u for both wet (ie if dose needs to be made higher) or dry (if dosing is too much) - frequent and serial BMPs. stable for home / home O2 has been set up and delivered and he really wants to go home, has supportive family and close follow up. Resident Activity Tracking Resident Involvement: Resident Care Provided Care Provided: Adult Hospital Medicine
--- NOTE | 2019-04-30 15:35 | Electrocardiogram Report ---
Test Reason : Blood Pressure : / mmHG Vent. Rate : 119 BPM Atrial Rate : 119 BPM P-R Int : 142 ms QRS Dur : 112 ms QT Int : 354 ms P-R-T Axes : 027 -10 098 degrees QTc Int : 497 ms Sinus tachycardia with Premature ventricular complexes Possible Left atrial enlargement Nonspecific ST and T wave abnormality Abnormal ECG When compared with ECG of 24-APR-2019 10:34, Premature ventricular complexes are now Present Confirmed by Abraham Rosen ([id number]) on 04/30/2019 3:35:06 PM Referred By: REFERRED SELF Confirmed By:Abraham Rosen
[2019-04-30 16:14] VITALS: BP 134/93; O2SAT 91
[2019-04-30] MEDS ORDERED: INSULIN HUMAN NPH SC SCH (17:00)
[2019-04-30 17:23] VITALS: PULSE 97
--- NOTE | 2019-04-30 19:00 | Billing Data ---
Date of Service April 30, 2019 Coding Level of Care Code D/C Day Management >30 mins
--- NOTE | 2019-04-30 19:00 | Billing Data ---
Date of Service April 30, 2019 Coding Level of Care Code D/C Day Management <30 mins
== END 2019-04-30 18:08 | disposition home or self-care (01) | DRG 293 ==
LOC: ED 20:47 → SUATTDRO 04-30 00:32 → 2E 04-30 00:32 → INTOOBSV 04-30 00:32 → 2E 04-30 01:01
DX: Z88.8 Allergy status to other drugs, medicaments and biological substances; Z88.1 Allergy status to other antibiotic agents; R06.02 Shortness of breath; Z95.810 Presence of automatic (implantable) cardiac defibrillator; J96.91 Respiratory failure, unspecified with hypoxia; Z79.4 Long term (current) use of insulin; E66.01 Morbid (severe) obesity due to excess calories; I11.0 Hypertensive heart disease with heart failure; Z68.43 Body mass index [BMI] 50.0-59.9, adult; I42.8 Other cardiomyopathies; Z91.14 Patient's other noncompliance with medication regimen; E11.9 Type 2 diabetes mellitus without complications; I50.23 Acute on chronic systolic (congestive) heart failure

== ENCOUNTER 2019-05-05 09:32 | Observation (INO) ==
[2019-05-05] MEDS ORDERED: FAMOTIDINE 20MG IV PUSH 20 MG/5 ML SYR IV STA (09:52)
[2019-05-05 10:05] LABS: Basophils # (auto) 0.01 K/uL (0-0.2); Basophils % (auto) 0.1 %; Eosinophils # (auto) 0.09 K/uL (0-0.5); Eosinophils % (auto) 0.9 %; Hematocrit (blood only) 39.8 % (42-52); Hemoglobin 13.1 g/dL (14.0-18.0); Immature Granulocytes # (auto) 0.01 K/uL (0.00-0.02); Immature Granulocytes % (auto) 0.1 %; Lymphocytes # (auto) 1.61 K/uL (1.2-3.4); Lymphocytes % (auto) 16.9 %; Mean Corpuscular Hemoglobin 27.7 pg (25-34); Mean Corpuscular Hgb Conc 32.9 g/dL (32-36); Mean Corpuscular Volume 84.1 fL (80-100); Mean Platelet Volume 9.5 fL (7.4-10.4); Monocytes # (auto) 0.68 K/uL (0.11-0.59); Monocytes % (auto) 7.2 %; Neutrophils # (auto) 7.11 K/uL (1.4-6.5); Neutrophils % (auto) 74.8 %; Platelet Count 190 K/uL (130-400); RDW Coefficient of Variation 15.5 % (11.5-14.5); RDW Standard Deviation 47.6 fL (36.4-46.3); Red Blood Count 4.73 M/uL (4.7-6.1); White Blood Count 9.51 K/uL (4.8-10.8)
--- NOTE | 2019-05-05 10:11 | Emergency Department Note ---
ED Provider Note NAME: HARDIK LOVE AGE: 43 SEX: M ARRIVES VIA: Ambulance INFORMANT: Patient ED PROVIDER(S): Marv Cintron MD CHIEF COMPLAINT: Syncope, SOB, hemoptysis MEDICAL DECISION MAKING: The patient is a pleasant 43-year-old gentleman with a past medical history of mental delay, nonischemic cardiomyopathy, acute on chronic systolic and diastol ic heart failure, hypertension, CKD, MARIELENA, medical noncompliance since emergency department for evaluation of shortness of breath and chest heaviness with self- reported episode of syncope as well as hemoptysis (which has been extensively evaluated in the past). On arrival the patient is chronically ill-appearing but no acute distress, afebrile stable vital signs. On exam the patient appears relatively volume down compared to prior presentations. He does have diminished breath sounds at the bases but is otherwise clear. Work of breathing is normal. Is on his normal 2 L nasal cannula. EKG with out overt acute ischemia and similar to prior. Chest x-ray demonstrates volume overload that is similar to prior mild to moderate pulmonary edema. WBC and platelets within normal limits. H/H 13.1/39.8 approximate 2 prior values. Chemistry without acidosis. Electrolytes and LFTs unremarkable. Troponin 0.039, within normal limits. BNP 4200, similar to prior. The patient's weight appears stable and he is on his home oxygen patient was treated with labetalol for better blood pressure control as well as IV Bumex to help with diuresis and plan was for likely discharge with outpatient follow-up. However prior to discharge the patient did demonstrate gross hemoptysis with red sputum that was more significant than had been documented in the past. Patient did have a CT of his chest that was negative for PE on his last admission this was repleted and again negative for PE but did demonstrate pulmonary edema. Given the patient's more pronounced hemoptysis reasonable to admit the patient for further management. Case was discussed with Dr. Packer, [facility] hospitalist, who will evaluate the patient for admission. Triage Nursing notes reviewed and agree them. Prior medical records reviewed Vital Signs: reviewed and remarkable for hypertension. Differential diagnosis: Cardiac ischemia, aortic dissection, pulmonary embolism, pneumothorax, pneumonia, pericarditis, myocarditis, esophageal rupture, GERD, cholecystitis, pancreatitis, musculoskeletal, as well as other pathologies. ER treatment provided: See below. Diagnostics interpreted by me: ECG: Sinus tachycardia with occasional PVCs with left axis deviation, [address] and T wave abnormalities, no overt ST elevation. QTC 507, QRS 102. Similar to 04/29/2019. Cardiac Monitoring: Sinus tachycardia, 105 bpm, occasional PVCs. Laboratory studies: See below Imaging studies: XR chest 1V portable CLINICAL HISTORY: 43 years-old Male presenting with Chest Pain. TECHNIQUE: Portable upright AP view of the chest was obtained. COMPARISON: 04/29/2019. FINDINGS: Atherosclerosis of the aortic arch. Cardiac silhouette enlarged. Left subclavian implanted cardiac defibrillator with single lead to the right ventricular apex, incompletely included within the field of view. Bilateral hilar prominence, li lion vascular. Pulmonary vascular and interstitial prominence. Patchy opacities in the central and lower lungs, right greater than left. This is similar to prior. Degenerative changes of the thoracic spine. Upper abdomen normal. IMPRESSION: 1. Cardiomegaly with volume overload and congestive change. Suspected mild to moderate pulmonary edema similar to prior. -- CT angio chest PE protocol CT DOSE: 955.16 mGy.cm HISTORY: 43 years-old Male with PE. Acute shortness of breath TECHNIQUE: Multiple CTA images of the chest were obtained after the intravenous administration of 120 ml Optiray 320. Coronal and sagittal MIPS were obtained from the axial data set and were submitted for review. All measurements were obtained according to NASCET criteria. A dose lowering technique was utilized adhering to the principles of ALARA. COMPARISON: CTA of the chest, and duplex venous Doppler study 04/29/2019. FINDINGS: CTA: Moderate to marked cardiomegaly. Left subclavian pacer. The left heart structures are not well opacified secondary to contrast bolus timing. Fusiform dilation of the ascending thoracic aorta, 4.5 x 4.4 cm. Pulmonary artery is dilated measuring up to 4.0 cm transversely. Reflux of contrast into the IVC. Pulmonary artery is opacified to the level of the lobar branches. The segmental and subsegmental branches are not well opacified. No filling defects identified to suggest pulmonary thromboembolic disease. CT CHEST: Unremarkable thyroid. Nonspecific prominent paratracheal, subcarinal and hilar lymph nodes measure up to 9 mm. Small pleural effusions, right greater than left have decreased in size in the interval. No pneumothorax. Intralobular septal thickening with bilateral multifocal groundglass and nodular consolidative opacities. The consolidative densities have progressed. No acute process of the imaged upper abdomen. Soft tissues are unremarkable. Mu ltilevel spondylitic spurring, disc space narrowing and facet arthrosis. Bones appear intact. IMPRESSION: 1. Limited study secondary to contrast bolus timing. No central pulmonary emboli identified. 2. Cardiomegaly with fusiform dilation of the ascending thoracic aorta, 4.5 x 4.5 cm. 3. Small pleural effusions have slightly decreased in size. 4. Intralobular septal thickening with diffuse bilateral groundglass densities suggestive of pulmonary edema. Additionally, there is progressive patchy nodular consolidative densities bilaterally suggestive of a superimposed infectious or inflammatory pneumonitis. Consultation(s): [none] HPI: The patient is a pleasant 43-year-old gentleman with a past medical history of mental delay, nonischemic cardiomyopathy, acute on chronic systolic and diastolic heart failure, hypertension, CKD, MARIELENA, medical noncompliance since emergency department for evaluation of shortness of breath and chest heaviness with self-reported episode of syncope as well as hemoptysis (which has been extensively evaluated in the past). The patient denies any fevers, nausea, vomiting, diarrhea. Denies urinary symptoms. ROS: See above HPI for pertinent positives & negatives. A total of 10 systems reviewed and were otherwise negative. PAST MEDICAL HISTORY:See Below PAST SURGICAL HISTORY:See Below FAMILY HISTORY:See Below SOCIAL HISTORY:See Below HOME MEDICATIONS:See Below ALLERGIES:See Below VITALS:See Below PHYSICAL EXAMINATION: GENERAL: Awake, alert, chronically ill-appearing, in no distress HENT: Normocephalic, atraumatic. Oropharynx unremarkable. EYES: Normal conjunctiva. Sclera non-icteric. NECK: Supple. No nuchal rigidity. FROM. No JVD. RESPIRATORY: Diminished at the bases and otherwise clear to auscultation. CARDIAC: Regular rate, normal rhythm. Extremities warm and well perfused. Pulses equal. ABDOMEN: Soft, non-distended. No tenderness to palpation. No rebound or guarding. No masses. RECTAL: Deferred. MUSCULOSKELETAL: Chest examination reveals no tenderness. The back is symmetrical on inspection without obvious abnormality. There is no CVA tenderness to palpation. No joint edema. LOWER EXTREMITIES: Calves are equal size bilaterally and non-tender. Scant bilateral lower extremity edema. No discoloration. NEURO: Normal sensorium. No sensory or motor deficits noted. SKIN: No rash or jaundice noted. 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 Difficult to manage. Integrated into heart failure clinic. Frequent admissions for heart failure exacerbations. Echo (05/31) EF=25-30% with mod to severe global hypokinesis, basal kelsi-septal akinetic wall, LVH, RVSP elevated at 30-40mmHg, and mod dilated ascending aorta. Managed medically with ASA + BB + ARB/Neprilysin inhibitor (Entresto) + high dose furosemide (160mg BID) + metolazone (3x weekly). Considering ICD given EF. COPD (chronic obstructive pulmonary disease) (Chronic) Depression Depression with anxiety (Acute) Diabetes mellitus with diabetic polyneuropathy (Acute) Diabetes mellitus, type II (Chronic) DM II (diabetes mellitus, type II), controlled Dyslipidemia (Acute) Epidermoid cyst of neck Fatty liver GERD (gastroesophageal reflux disease) GERD (gastroesophageal reflux disease) Hemoptysis HTN (hypertension) Hypertension (Chronic) Learning disability (Resolved) Lung nodule (Acute) Medical non-compliance Mixed hearing loss of left ear (Acute) Morbid obesity (Chronic) BMI> 50 Morbid obesity with BMI of 50.0-59.9, adult Nonischemic cardiomyopathy EF 30-35% Nonischemic cardiomyopathy Obstructive sleep apnea (Chronic) Polysomnography (07/28) with severe mixed osbtructive and central apnea treated with Bipap 27/11 MARIELENA (obstructive sleep apnea) Does not comply with CPAP Peripheral neuropathy (Chronic) 2/2 DM type II. Located on the feet bilaterally. Not requiring medication. Followed by podiatry Right-sided sensorineural hearing loss (Acute) Sinus bradycardia Sinus tachycardia (Acute) TMJ (dislocation of temporomandibular joint) (Acute) Umbilical hernia (Acute) Vitamin D insufficiency Previously deficient, taking Vit D supplementation Surgical History History of carpal tunnel surgery History of cholecystectomy S/P tonsillectomy Family History Father , age 57 of an NE. Heart disease Myocardial infarction Mother , age 67 of a ruptured neck vessel Sudden Other Depression Lung disease No pertinent family history Denies family history of Ovarian cancer Prostate cancer Breast cancer Colorectal cancer Social History Preferred Language: Lithuanian Communication Ability: Effective Visual Impairment: No Limitations Hearing Ability: Normal Dental Scheduler Required: No Beliefs That Will Affect Care: None marital status: Current Living Situation: Spouse current occupational status: unemployed Other Information That Helps Us Care for You: No Feels Safe at Home: Yes Safety Concerns: Feels Safe At This Time Smoking Status: Former smoker Tobacco Type: cigarettes ; Age Started Using Tobacco: 14 ; Age Quit Using Tobacco: 18 ; Cigarettes Per Day: 40-50 ; Do You Dip or Chew Tobacco: No ; Smoking End Date: 1997 ; Second Hand Exposure: No ; Tobacco Cessation Education Requested by Patient: No Hx Alcohol Use: Yes Alcohol type: beer and other Alcohol Intake Frequency: Rarely Hx Substance Use: No Childhood Exposure to Second-Hand Smoke: Yes Dental Care, Regularly: Yes Physical Activity Frequency: Does not Exercise Results & Data (ED) Vital Signs Vital Signs - 24 hr 05/05/19 09:40 05/05/19 09:44 05/05/19 09:50 Temperature 36.6 C Temperature Source Oral Pulse Rate 110 H 108 H 110 H Pulse Rate from SpO2 Sensor 110 H Pulse Rhythm Regular Respiratory Rate 24 26 H 22 Respiratory Effort / Characteristics SOB on Exertion Respiratory Depth Normal Blood Pressure 222/156 H 222/156 H Blood Pressure Mean 179 178 Pulse Oximetry 92 94 Oxygen Delivery Method Nasal Cannula Oxygen Flow Rate 2 Sepsis Recent Fever Within 48 Hours No Sepsis Action Taken by Nursing No Action Required 05/05/19 10:00 05/05/19 10:38 05/05/19 10:39 Temperature Temperature Source Pulse Rate 105 H 117 H 113 H Pulse Rate from SpO2 Sensor 115 H Pulse Rhythm Respiratory Rate 17 25 H Respiratory Effort / Characteristics Respiratory Depth Blood Pressure 216/152 H Blood Pressure Mean 160 Pulse Oximetry 93 Oxygen Delivery Method Oxygen Flow Rate Sepsis Recent Fever Within 48 Hours Sepsis Action Taken by Nursing 05/05/19 11:00 05/05/19 11:01 05/05/19 11:02 Temperature Temperature Source Pulse Rate 105 H 104 H 105 H Pulse Rate from SpO2 Sensor 106 H 103 H 105 H Pulse Rhythm Respiratory Rate 12 19 16 Respiratory Effort / Characteristics Respiratory Depth Blood Pressure 171/127 H Blood Pressure Mean 141 Pulse Oximetry 94 94 94 Oxygen Delivery Method Oxygen Flow Rate Sepsis Recent Fever Within 48 Hours Sepsis Action Taken by Nursing 05/05/19 11:30 05/05/19 12:00 05/05/19 12:30 Temperature Temperature Source Pulse Rate 110 H 100 H 102 H Pulse Rate from SpO2 Sensor 110 H 101 H 101 H Pulse Rhythm Respiratory Rate 34 H 23 23 Respiratory Effort / Characteristics Respiratory Depth Blood Pressure 191/143 H Blood Pressure Mean 164 Pulse Oximetry 92 92 93 Oxygen Delivery Method Oxygen Flow Rate Sepsis Recent Fever Within 48 Hours Sepsis Action Taken by Nursing 05/05/19 13:00 05/05/19 13:01 05/05/19 13:30 Temperature Temperature Source Pulse Rate 89 91 H 94 H Pulse Rate from SpO2 Sensor 89 88 93 H Pulse Rhythm Respiratory Rate 29 H 26 H 29 H Respiratory Effort / Characteristics Respiratory Depth Blood Pressure 160/134 H Blood Pressure Mean 139 Pulse Oximetry 91 93 94 Oxygen Delivery Method Oxygen Flow Rate Sepsis Recent Fever Within 48 Hours Sepsis Action Taken by Nursing 05/05/19 14:00 05/05/19 14:01 Temperature Temperature Source Pulse Rate 90 91 H Pulse Rate from SpO2 Sensor 91 H 91 H Pulse Rhythm Respiratory Rate 30 H 28 H Respiratory Effort / Characteristics Respiratory Depth Blood Pressure 171/130 H Blood Pressure Mean 142 Pulse Oximetry 96 96 Oxygen Delivery Method Oxygen Flow Rate Sepsis Recent Fever Within 48 Hours Sepsis Action Taken by Nursing Laboratory Data Result diagrams: 05/05/19 09:48 05/05/19 09:48 Lab Results 05/05/19 05/05/19 05/05/19 Range/Units 09:48 09:48 09:48 WBC 9.51 (4.8-10.8) K/uL RBC 4.73 (4.7-6.1) M/uL Hgb 13.1 L (14.0-18.0) g/dL Hct 39.8 L (42-52) % MCV 84.1 (80-100) fL MCH 27.7 (25-34) pg MCHC 32.9 (32-36) g/dL RDW Std Deviation 47.6 H (36.4-46.3) fL RDW Coeff of Zoltan 15.5 H (11.5-14.5) % Plt Count 190 (130-400) K/uL MPV 9.5 (7.4-10.4) fL Immature Gran % (Auto) 0.1 % Neut % (Auto) 74.8 % Lymph % (Auto) 16.9 % [place] % (Auto) 7.2 % Eos % (Auto) 0.9 % Baso % (Auto) 0.1 % Immature Gran # (Auto) 0.01 (0.00-0.02) K/uL Neut # (Auto) 7.11 H (1.4-6.5) K/uL Lymph # (Auto) 1.61 (1.2-3.4) K/uL [place] # (Auto) 0.68 H (0.11-0.59) K/uL Eos # (Auto) 0.09 (0-0.5) K/uL Baso # (Auto) 0.01 (0-0.2) K/uL PT 11.0 (9.0-12.0) Seconds INR 1.0 (0.9-1.1) APTT 28.7 (21.0-31.0) Seconds PTT Ratio 1.0 Sodium 140 (136-145) mmol/L Potassium 3.7 (3.5-5.1) mmol/L Chloride 109 H (98-107) mmol/L Carbon Dioxide 23 (21-32) mmol/L Anion Gap 8.0 (3-11) BUN 15 (7-18) mg/dl Creatinine 0.89 (0.6-1.4) mg/dl Est Cr Clr Drug Dosing 161.2 ml/min Est GFR ( Amer) 122.2 Est GFR (Non-Af Amer) 105.5 BUN/Creatinine Ratio 16.6 (10-20) Glucose 137 H (70-99) mg/dl Calcium 8.5 (8.5-10.1) mg/dl Phosphorus 4.2 (2.5-4.9) mg/dl Magnesium 1.8 (1.8-2.4) mg/dl Total Bilirubin 0.8 (0.2-1) mg/dl AST 16 (15-37) U/L ALT 22 (12-78) U/L Alkaline Phosphatase 87 (45-117) U/L Troponin I 0.039 (0-0.045) ng/ml NT-Pro-B Natriuret Pep 4294 H (0-450) pg/ml Total Protein 7.2 (6.4-8.2) gm/dl Albumin 3.1 L (3.4-5.0) gm/dl Globulin 4.1 H (2.5-4.0) gm/dl Albumin/Globulin Ratio 0.8 L (0.9-2) Lipase 180 (73-393) U/L Administered Medications Ioversol (Optiray 320 125ml) 120 ml IV ONCE PRN PRN Reason: Interaction Checking Stop: 05/09/19 14:21 Last Admin: 05/05/19 14:23 Dose: 120 ml Documented by: [id number] Metolazone (Zaroxolyn) 5 mg PO MoTh@0900 [facility] Stop: 06/04/19 15:31 Last Admin: 05/05/19 16:03 Dose: 5 mg Documented by: [id number] Miscellaneous (Order Awaiting Action) 1 ea N/A QS [facility] Stop: 06/04/19 15:59 Last Admin: 05/05/19 16:25 Dose: Not Given Documented by: [id number] Nitroglycerin (Nitro-Bid 2%) 1 inch EXT Q6H [facility] Stop: 06/04/19 16:14 Last Admin: 05/05/19 17:21 Dose: 1 inch Documented by: [id number] Potassium Chloride (Klor-Con M20) 20 meq PO BID17 [facility] Stop: 06/04/19 16:59 Last Admin: 05/05/19 16:05 Dose: 20 meq Documented by: [id number] Discontinued Medications Famotidine (Pepcid 20mg Iv Push) 20 mg in 5 mls @ 2.5 mls/min IV NOW STA Stop: 05/05/19 09:53 Last Admin: 05/05/19 10:02 Dose: 2.5 mls/min Documented by: [id number] Bumetanide 2 mg/ Syringe 8 mls @ 4 mls/min IV ONE ONE Stop: 05/05/19 11:27 Last Admin: 05/05/19 11:55 Dose: 4 mls/min Documented by: [id number] Furosemide 40 mg/ Syringe 4 mls @ 4 mls/min IV ONE ONE Stop: 05/05/19 16:31 Last Admin: 05/05/19 16:24 Dose: 4 mls/min Documented by: [id number] Labetalol HCl (Normodyne) 10 mg IV NOW STA Stop: 05/05/19 11:23 Last Admin: 05/05/19 11:32 Dose: 10 mg Documented by: [id number] Cosigned by: [id number] Metoprolol Succinate (Toprol Xl) 100 mg PO NOW STA Stop: 05/05/19 16:29 Last Admin: 05/05/19 18:35 Dose: 100 mg Documented by: [id number] Metoprolol Tartrate (Lopressor) 5 mg IV NOW STA Stop: 05/05/19 16:05 Last Admin: 05/05/19 17:18 Dose: 5 mg Documented by: [id number] Blood Pressure Blood Pressure Findings: Elevated blood pressure Blood Pressure Disposition: further management by hospitalist Discharge Plan Visit Data *Final* Discharge Date/Time: 05/05/19 15:28 Chief Complaint: Shortness of Breath/Dyspnea ED Provider: Marv Cintron Discharge Problem: Cough with hemoptysis, Volume overload, Hypertension, CHF (congestive heart failure), Atypical chest pain Patient Disposition: Admitted As Inpatient Discharge Instructions Interventions: ED Discharge Assessment Last Done: 05/05/19 15:28
[2019-05-05 10:25] LABS: Partial Thromboplastin Time 28.7 Seconds (21.0-31.0)
--- NOTE | 2019-05-05 10:44 | CT Scan Report ---
CT head/brain wo con CLINICAL HISTORY: 43 years-old Male presenting with syncope. TECHNIQUE: Multidetector CT imaging of the head was performed without the use of intravenous contrast . IV contrast: None. One or more dose lowering techniques were used consistent with the principles of ALARA (as low as reasonably achievable), including automatic exposure control, mA or kV adjustment t o individual patient size, and/or use of iterative reconstruction. COMPARISON: MR brain from 12/10/[address] head from 03/25/2018.. CT DOSE (mGy.cm): The estimated cumulative dose is 1311.06 mGy.cm. FINDINGS: Roll Tester topogram: Unremarkable. Motion artifact degrades image quality and mildly to moderately limits diagnostic sensitivity the exa m. Ventricles and sulci normal in size. No hemorrhage. Periventricular and subcortical white matter hypo attenuation, nonspecific but likely indicative of chronic small vessel ischemic change. No acute terr itorial infarct. No mass effect or midline shift. No extra-axial fluid collection. Paranasal sinuses and mastoid air cells clear. Calvarium intact. IMPRESSION: Motion artifact degrades image quality and mildly to moderately limits diagnostic sensitivity the exa m. 1. Periventricular white matter hypoattenuation is similar to prior exams and nonspecific given the patient's age. 2. No convincing evidence of acute intracranial pathology. ACT 112: Negative or not required by law. Electronically signed by: Negro Schroeder M.D. 05/05/2019 10:42 AM
[2019-05-05 10:48] LABS: Albumin Level 3.1 gm/dl (3.4-5.0); BUN Creatinine Ratio 16.6 (10-20); Calcium 8.5 mg/dl (8.5-10.1); Creatinine Clr Calc Pharmacy 161.2 ml/min; Est GFR (African American) 122.2; Est GFR (Non-African American) 105.5; Magnesium 1.8 mg/dl (1.8-2.4); Potassium 3.7 mmol/L (3.5-5.1)
[2019-05-05 10:53] LABS: Albumin Globulin Ratio 0.8 (0.9-2); Bilirubin,Total 0.8 mg/dl (0.2-1); Globulin 4.1 gm/dl (2.5-4.0); Phosphorus 4.2 mg/dl (2.5-4.9); Total Protein 7.2 gm/dl (6.4-8.2); Troponin I 0.039 ng/ml (0-0.045)
--- NOTE | 2019-05-05 10:54 | XRay Report ---
XR chest 1V portable CLINICAL HISTORY: 43 years-old Male presenting with Chest Pain. TECHNIQUE: Portable upright AP view of the chest was obtained. COMPARISON: 04/29/2019. FINDINGS: Atherosclerosis of the aortic arch. Cardiac silhouette enlarged. Left subclavian implanted cardiac de fibrillator with single lead to the right ventricular apex, incompletely included within the field of view. Bilateral hilar prominence, likely vascular. Pulmonary vascular and interstitial prominence. P atchy opacities in the central and lower lungs, right greater than left. This is similar to prior. De generative changes of the thoracic spine. Upper abdomen normal. IMPRESSION: 1. Cardiomegaly with volume overload and congestive change. Suspected mild to moderate pulmonary nighat ma similar to prior. ACT 112: Negative or not required by law. Electronically signed by: Negro Schroeder M.D. 05/05/2019 10:53 AM
[2019-05-05] MEDS ORDERED: LABETALOL HCL IV 5 MG/ML 20ML IV STA (11:22)
[2019-05-05] MEDS ORDERED: BUMETANIDE 2 MG in SYRINGE 0 ML IV ONE (11:26)
[2019-05-05] MEDS ORDERED: OPTIRAY 320 125ml IV PRN (14:22)
--- NOTE | 2019-05-05 14:43 | History & Physical Report ---
Date of Service May 05, 2019 Assessment & Plan (1) Acute on chronic heart failure with reduced ejection fraction and diastolic dysfunction: Acute on chronic systolic heart failure/HFrEF/NICM with most recent EF on 04/08 of 25-30% Patient was recently admitted and discharged for the same reason just 1 week ago. Patient appears to not fully grasp his condition. Explained how severe this is given his severe cardiomyopathy. There is question that patient is not fully compliant. Patient received 8 mg of Bumex in the ER. Will resume bumex PO as the bioavailability of this is high. Patient will be on fluid restriction. Continue aspirin 81 mg daily, hold for now: metoprolol succinate, and Entresto Follow BMP and magnesium levels every morning. NICM (nonischemic cardiomyopathy): See above Present on admission: yes Status post internal cardiac defibrillator procedure: Placed on 04/08/2019. He denies any instances of firing. Present on Admission?: Yes Noncompliance with medication regimen: This is the patient's fifth admission this calendar year: Previous admissions: 02/19-02/21, 03/20-03/22, and 03/31-04/04, and just this past week. If he is not in the heart failure program, he needs to follow in the heart failure program to prevent/reduce further admissions Present on Admission?: Yes Diabetes mellitus, type II: Hold Humalog mix 50/50, 40 units subcu daily and Trulicity. Placed on Accu-Cheks before meals and at bedtime with NovoLog coverage per scale. Present on Admission?: Yes (2) Syncope: Likely due to his primary problem. Will monitor. (3) Hypertension: BP is elevated. will see how he responds to the diuretics. May need additional IV diuretic overnight if BP does not improve. 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 placed on glycemic control. DVT prophylaxis: heparin Full code History of Present Illness Chief Complaint: SOB and syncope Primary Care Provider: CM Vargas, MS, MACARONI MAKER-C Patient is a poor historian. Patient reports that he passed out at 4 am this morning. He reports he was sitting at the kitchen table and he fell asleep but then he fell out of his chair and fell on the carpeted floor. At 8am, his stepchildren found him asleep on the floor, and woke him up. He stated he was weak and couldn't get up. He said he can walk from bedroom to kitchen but passed but almost again. Patient reports that he is spitting up blood for the past 3 weeks. He reports that his hemoptysis has occurred secondary to the pacemaker that was inserted. He does not understand why he keeps on getting swollen at home. He states he is "compliant" with his medicine. Allergies Allergy/AdvReac Type Severity Reaction Status Date / Time ceftriaxone Allergy Severe SHORTNESS Verified 05/05/19 09:50 OF BREATH lidocaine Allergy Severe SHORTNESS Verified 05/05/19 09:50 OF BREATH, diaphoretic, hives procaine Allergy Severe SHORTNESS Verified 05/05/19 09:50 OF BREATH, diaphoretic, hives amoxicillin Allergy Intermediate HIVES/FACIAL Verified 05/05/19 09:50 SWELLING clavulanic acid Allergy Intermediate HIVES/FACIAL Verified 05/05/19 09:50 SWELLING lisinopril Allergy Intermediate HIVES Verified 05/05/19 09:50 albuterol Allergy Mild proair Verified 05/05/19 09:50 "trouble taking breaths" acetaminophen AdvReac Mild NAUSEA Verified 05/05/19 09:50 Home Medications Home Medications Medication Instructions Recorded Confirmed Type esomeprazole magnesium 20 mg 20 mg PO BID cap 09/05/18 05/05/19 History capsule,delayed release aspirin 81 mg tablet,delayed 81 mg PO QAM 09/17/18 05/05/19 History release cholecalciferol (vitamin D3) 25 2,000 units PO BID cap 09/17/18 05/05/19 History mcg (1,000 unit) capsule OneTouch Delica Plus Lancet 30 #400 ea NS 12/23/18 05/05/19 Rx gauge OneTouch Verio #400 ea NS 12/23/18 05/05/19 Rx potassium chloride 20 mEq 20 meq PO BID 02/25/19 05/05/19 History tablet,extended release albuterol sulfate 90 mcg/actuation 1 puffs INH QID #18 gm 03/26/19 05/05/19 Rx aerosol inhaler metoprolol succinate 200 mg 200 mg PO BID 04/10/19 05/05/19 History tablet,extended release 24 hr sacubitril 97 mg-valsartan 103 mg 1 tab PO BID tab 04/10/19 05/05/19 History tablet Trulicity 1.5 mg SQ WE 04/24/19 05/05/19 History diclofenac sodium [Voltaren] 2 gm TOP QID 04/24/19 05/05/19 History nitroglycerin [Nitrostat] 0.4 mg SUBLINGUAL UD PRN 04/24/19 05/05/19 History ondansetron 4 mg PO Q8H PRN #30 tab 04/24/19 05/05/19 Rx Oxygen Home #1 ea 04/29/19 05/05/19 Rx budesonide [Pulmicort] 0.25 mg INHALATION UD 04/29/19 05/05/19 History metolazone 5 mg PO MOTH 04/29/19 05/05/19 History bumetanide 2 mg PO BID 30 Days #60 tab 04/30/19 05/05/19 Rx Past Med/Surg History Medical History Acquired claw toe of left foot (Acute) Acquired claw toe of right foot (Acute) Acute on chronic systolic (congestive) heart failure (Chronic) Back pain (Resolved) Bilateral knee pain (Acute) Carpal tunnel syndrome (Acute) Cluster headache (Acute) Cognitive impairment 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 Difficult to manage. Integrated into heart failure clinic. Frequent admissions for heart failure exacerbations. Echo (05/31) EF=25-30% with mod to severe global hypokinesis, basal kelsi-septal akinetic wall, LVH, RVSP elevated at 30-40mmHg, and mod dilated ascending aorta. Managed medically with ASA + BB + ARB/Neprilysin inhibitor (Entresto) + high dose furosemide (160mg BID) + metolazone (3x weekly). Considering ICD given EF. COPD (chronic obstructive pulmonary disease) (Chronic) Depression Depression with anxiety (Acute) Diabetes mellitus with diabetic polyneuropathy (Acute) Diabetes mellitus, type II (Chronic) DM II (diabetes mellitus, type II), controlled Dyslipidemia (Acute) Epidermoid cyst of neck Fatty liver GERD (gastroesophageal reflux disease) GERD (gastroesophageal reflux disease) Hemoptysis HTN (hypertension) Hypertension (Chronic) Learning disability (Resolved) Lung nodule (Acute) Medical non-compliance Mixed hearing loss of left ear (Acute) Morbid obesity (Chronic) BMI> 50 Morbid obesity with BMI of 50.0-59.9, adult Nonischemic cardiomyopathy EF 30-35% Nonischemic cardiomyopathy Obstructive sleep apnea (Chronic) Polysomnography (07/28) with severe mixed osbtructive and central apnea treated with Bipap 27/11 MARIELENA (obstructive sleep apnea) Does not comply with CPAP Peripheral neuropathy (Chronic) 2/2 DM type II. Located on the feet bilaterally. Not requiring medication. Followed by podiatry Right-sided sensorineural hearing loss (Acute) Sinus bradycardia Sinus tachycardia (Acute) TMJ (dislocation of temporomandibular joint) (Acute) Umbilical hernia (Acute) Vitamin D insufficiency Previously deficient, taking Vit D supplementation Surgical History History of carpal tunnel surgery History of cholecystectomy S/P tonsillectomy Family History Father , age 57 of an [place]. Heart disease Myocardial infarction Mother , age 67 of a ruptured neck vessel Sudden Other Depression Lung disease No pertinent family history Denies family history of Ovarian cancer Prostate cancer Breast cancer Colorectal cancer Social History Preferred Language: Kenyan Communication Ability: Effective Visual Impairment: No Limitations Hearing Ability: Normal Pooling Operator Required: No Beliefs That Will Affect Care: None marital status: Current Living Situation: Spouse current occupational status: unemployed Other Information That Helps Us Care for You: No Feels Safe at Home: Yes Safety Concerns: Feels Safe At This Time Smoking Status: Former smoker Tobacco Type: cigarettes ; Age Started Using Tobacco: 14 ; Age Quit Using Tobacco: 18 ; Cigarettes Per Day: 40-50 ; Do You Dip or Chew Tobacco: No ; Smoking End Date: 1997 ; Second Hand Exposure: No ; Tobacco Cessation Education Requested by Patient: No Hx Alcohol Use: Yes Alcohol type: beer and other Alcohol Intake Frequency: Rarely Hx Substance Use: No Childhood Exposure to Second-Hand Smoke: Yes Dental Care, Regularly: Yes Physical Activity Frequency: Does not Exercise Review of Systems Constitutional: + weakness; no fever, no sweats and no malaise Eyes: no blind spots, no diplopia and no discharge Ear, Nose, Mouth, Throat: no ear pain and no tinnitus Respiratory: + cough and + hemoptysis Cardiovascular: no chest pain and no chest pain with activity Gastrointestinal: no abdominal pain and no early satiety Genitourinary: no dysuria Musculoskeletal: no back pain and no radicular pain Integumentary: no acne and no lesions Neurologic: no falls Psychiatric: no behavioral changes and no anhedonia Endocrine: no fatigue Hematologic / Lymphatic: no easy bleeding Allergy / Immunological: no seasonal rhinorrhea Physical Exam Constitutional: WD/WN, vitals as above well developed and well nourished Eyes: PERRL, conjunctivae normal, anicteric sclerae ENMT: external ear and nose normal, oropharynx normal Neck: trachea midline, no thyromegaly Respiratory: + uses accessory muscles and + cough Cardiovascular: Rate/Rhythm: regular rate Heart Sounds: normal S1 and normal S2 Vessels: no JVD (difficult to assess due to body habitus) Gastrointestinal (Abdomen): normal bowel sounds, soft, nontender, no hepatosplenomegaly Musculoskeletal: no cyanosis or clubbing, extremities motor strength 5/5 Skin: no rashes, warm and dry Neurologic: PERRL, EOMI, accommodation nl, no face palsy, no dysarthria Psychiatric: A+Ox3, euthymic affect Lymphatic: no cervical or axillary lymphadenopathy Results & Data Vital Signs (Past 12 Hours) Vital Signs Temp Pulse Resp BP Pulse Ox 05/05/19 13:01 91 H 26 H 160/134 H 93 05/05/19 13:00 89 29 H 91 05/05/19 12:30 102 H 23 93 05/05/19 12:00 100 H 23 191/143 H 92 05/05/19 11:30 110 H 34 H 92 05/05/19 11:02 105 H 16 94 05/05/19 11:01 104 H 19 171/127 H 94 05/05/19 11:00 105 H 12 94 05/05/19 10:39 113 H 25 H 216/152 H 93 05/05/19 10:38 117 H 05/05/19 10:00 105 H 17 05/05/19 09:50 36.6 C 110 H 22 222/156 H 94 05/05/19 09:44 108 H 26 H 05/05/19 09:40 110 H 24 222/156 H 92 PG Care Time/CCT Total # of Minutes Spent Total Time Spent with Patient: Total time spent is greater than 50% in coordination of care (as documented) at patient's floor/unit and/or counseling patient: Coding Level of Care Code 25734 Initial Inpt Care Lvl 3 Diagnoses Acute on chronic heart failure with reduced ejection fraction and diastolic dysfunction I50.43 Syncope R55 Syncope type: unspecified Hypertension I10 Hypertension type: unspecified Volume overload E87.79 Hypervolemia type: other Nonproliferative retinopathy due to secondary diabetes E13.3299 Time Spent (min) 35 (1) Syncope Syncope type: unspecified Qualified Code(s): R55 - Syncope and collapse (2) Hypertension Hypertension type: unspecified Qualified Code(s): I10 - Essential (primary) hypertension (3) Volume overload Hypervolemia type: other Qualified Code(s): E87.79 - Other fluid overload
--- NOTE | 2019-05-05 14:46 | CT Scan Report ---
CT angio chest PE protocol CT DOSE: 955.16 mGy.cm HISTORY: 43 years-old Male with PE. Acute shortness of breath TECHNIQUE: Multiple CTA images of the chest were obtained after the intravenous administration of 120 ml Optiray 320. Coronal and sagittal MIPS were obtained from the axial data set and were submitted for review. All measurements were obtained according to NASCET criteria. A dose lowering technique w as utilized adhering to the principles of ALARA. COMPARISON: CTA of the chest, and duplex venous Doppler study 04/29/2019. FINDINGS: CTA: Moderate to marked cardiomegaly. Left subclavian pacer. The left heart structures are not well opacif ied secondary to contrast bolus timing. Fusiform dilation of the ascending thoracic aorta, 4.5 x 4.4 cm. Pulmonary artery is dilated measuring up to 4.0 cm transversely. Reflux of contrast into the IVC. Pulmonary artery is opacified to the level of the lobar branches. The segmental and subsegmental bra nches are not well opacified. No filling defects identified to suggest pulmonary thromboembolic disea se. CT CHEST: Unremarkable thyroid. Nonspecific prominent paratracheal, subcarinal and hilar lymph nodes measure up to 9 mm. Small pleural effusions, right greater than left have decreased in size in the interval. No pneumothorax. Intralobular septal thickening with bilateral multifocal groundglass and nodular conso lidative opacities. The consolidative densities have progressed. No acute process of the imaged upper abdomen. Soft tissues are unremarkable. Multilevel spondylitic s purring, disc space narrowing and facet arthrosis. Bones appear intact. IMPRESSION: 1. Limited study secondary to contrast bolus timing. No central pulmonary emboli identified. 2. Cardiomegaly with fusiform dilation of the ascending thoracic aorta, 4.5 x 4.5 cm. 3. Small pleural effusions have slightly decreased in size. 4. Intralobular septal thickening with diffuse bilateral groundglass densities suggestive of pulmonar y edema. Additionally, there is progressive patchy nodular consolidative densities bilaterally sugges tive of a superimposed infectious or inflammatory pneumonitis. ACT 112: Negative or not required by law. The above report was generated using voice recognition software. It may contain grammatical, syntax o r spelling errors. Electronically signed by: Petr Irby M.D. 05/05/2019 2:45 PM
[2019-05-05] MEDS ORDERED: metOLazone 5 MG TABLET PO SCH (15:32)
[2019-05-05] MEDS ORDERED: ONDANSETRON 4 MG OD TAB PO PRN (15:36)
[2019-05-05] MEDS ORDERED: METOPROLOL TARTRATE 1 MG/ML VIAL IV STA ×2 (16:04→20:21)
[2019-05-05] MEDS: POTASSIUM CHLORIDE 20 MEQ TABCR PO SCH (16:05)
--- NOTE | 2019-05-05 16:25 | Electrocardiogram Report ---
Test Reason : Blood Pressure : / mmHG Vent. Rate : 105 BPM Atrial Rate : 105 BPM P-R Int : 158 ms QRS Dur : 102 ms QT Int : 384 ms P-R-T Axes : 040 -40 092 degrees QTc Int : 507 ms Sinus tachycardia with occasional Premature ventricular complexes Possible Left atrial enlargement Left axis deviation Abnormal ECG When compared with ECG of 29-APR-2019 20:55, QRS axis Shifted left T wave inversion now evident in Lateral leads Confirmed by Bertrand Polanco ([id number]) on 05/05/2019 4:25:04 PM Referred By: ED Confirmed By:Severiano Polanco
[2019-05-05] MEDS ORDERED: METOPROLOL SUCC 50MG EXT REL TAB PO STA (16:28)
[2019-05-05] MEDS ORDERED: FUROSEMIDE 40 MG in SYRINGE 0 ML IV ONE (16:30)
--- NOTE | 2019-05-05 16:41 | Cardiology Consultation ---
Date of Consultation May 05, 2019 Assessment & Plan (1) Acute on chronic heart failure with reduced ejection fraction and diastolic dysfunction: (2) NICM (nonischemic cardiomyopathy): (3) Hypertensive urgency: (4) Sinus tachycardia: (5) Hemoptysis: (6) Noncompliance: 43-year-old patient admitted with acute decompensated systolic heart failure. Noncompliance suspected. Patient treated with IV Bumex and 1 dose of oral metolazone. Recommend Lasix 40 mg IV every 8 hours. Supplemental potassium given x1. Continue potassium chloride 20 mEq twice daily. Follow fluid balance, daily weight, GFR, and electrolytes. Dose of metoprolol succinate clarified: 200 mg once daily in the outpatient setting. Restart metoprolol 100 mg twice daily with first dose now. I will give 5 mg of IV metoprolol now to improve heart rate and blood pressure acutely. Topical nitrates will be added for afterload reduction. Patient reports possible episode of syncope, however, no ICD shocks noted. I have ordered ICD interrogation to exclude presence of symptomatic dysrhythmia. Consider pulmonary consultation for further evaluation of hemoptysis. Thank you for allowing to participate in the care of your patient. History of Present Illness Reason for Consultation: CHF Requesting Physician: Dr. Sky Attending Physician: Shemar Sky History of Present Illness 43-year-old patient well-known to the cardiology service. Presents to the emergency department with approximately 48 hours of progressive shortness of breath, orthopnea, weight gain, and lower extremity edema. Reports one episode of hemoptysis this morning. Carries a history of nonischemic cardiomyopathy status post recent ICD implantation. Long standing history of noncompliance with cardiovascular medical therapies. Patient recently discharged 04/30/2019. During that visit torsemide was transitioned to Bumex. He was followed up in the cardiology clinic on 05/02/2019. During that visit he admitted to noncompliance with Bumex therapy since hospital discharge. He failed to obtain prescriptions since discharge. Patient was seen in the emergency department. Treated with IV Bumex and labetalol. Markedly hypertensive on presentation. 1500 cc diuresis recorded over the past 3 hours. Blood pressure remains elevated. Denies chest discomfort or applications. Reports episode of syncope this morning. Denies any ICD discharges or shocks. History is limited due to patient's cognitive disability. Allergies Allergy/AdvReac Type Severity Reaction Status Date / Time ceftriaxone Allergy Severe SHORTNESS Verified 05/05/19 09:50 OF BREATH lidocaine Allergy Severe SHORTNESS Verified 05/05/19 09:50 OF BREATH, diaphoretic, hives procaine Allergy Severe SHORTNESS Verified 05/05/19 09:50 OF BREATH, diaphoretic, hives amoxicillin Allergy Intermediate HIVES/FACIAL Verified 05/05/19 09:50 SWELLING clavulanic acid Allergy Intermediate HIVES/FACIAL Verified 05/05/19 09:50 SWELLING lisinopril Allergy Intermediate HIVES Verified 05/05/19 09:50 albuterol Allergy Mild proair Verified 05/05/19 09:50 "trouble taking breaths" acetaminophen AdvReac Mild NAUSEA Verified 05/05/19 09:50 Home Medications Home Medications Medication Instructions Recorded Confirmed Type esomeprazole magnesium 20 mg 20 mg PO BID cap 09/05/18 05/05/19 History capsule,delayed release aspirin 81 mg tablet,delayed 81 mg PO QAM 09/17/18 05/05/19 History release cholecalciferol (vitamin D3) 25 2,000 units PO BID cap 09/17/18 05/05/19 History mcg (1,000 unit) capsule OneTouch Delica Plus Lancet 30 #400 ea NS 12/23/18 05/05/19 Rx gauge OneTouch Verio #400 ea NS 12/23/18 05/05/19 Rx potassium chloride 20 mEq 20 meq PO BID 02/25/19 05/05/19 History tablet,extended release albuterol sulfate 90 mcg/actuation 1 puffs INH QID #18 gm 03/26/19 05/05/19 Rx aerosol inhaler metoprolol succinate 200 mg 200 mg PO BID 04/10/19 05/05/19 History tablet,extended release 24 hr sacubitril 97 mg-valsartan 103 mg 1 tab PO BID tab 04/10/19 05/05/19 History tablet Trulicity 1.5 mg SQ WE 04/24/19 05/05/19 History diclofenac sodium [Voltaren] 2 gm TOP QID 04/24/19 05/05/19 History nitroglycerin [Nitrostat] 0.4 mg SUBLINGUAL UD PRN 04/24/19 05/05/19 History ondansetron 4 mg PO Q8H PRN #30 tab 04/24/19 05/05/19 Rx Oxygen Home #1 ea 04/29/19 05/05/19 Rx budesonide [Pulmicort] 0.25 mg INHALATION UD 04/29/19 05/05/19 History metolazone 5 mg PO MOTH 04/29/19 05/05/19 History bumetanide 2 mg PO BID 30 Days #60 tab 04/30/19 05/05/19 Rx Patient History Medical History Acquired claw toe of left foot (Acute) Acquired claw toe of right foot (Acute) Acute on chronic systolic (congestive) heart failure (Chronic) Back pain (Resolved) Bilateral knee pain (Acute) Carpal tunnel syndrome (Acute) Cluster headache (Acute) Cognitive impairment 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 Difficult to manage. Integrated into heart failure clinic. Frequent admissions for heart failure exacerbations. Echo (05/31) EF=25-30% with mod to severe global hypokinesis, basal kelsi-septal akinetic wall, LVH, RVSP elevated at 30-40mmHg, and mod dilated ascending aorta. Managed medically with ASA + BB + ARB/Neprilysin inhibitor (Entresto) + high dose furosemide (160mg BID) + metolazone (3x weekly). Considering ICD given EF. COPD (chronic obstructive pulmonary disease) (Chronic) Depression Depression with anxiety (Acute) Diabetes mellitus with diabetic polyneuropathy (Acute) Diabetes mellitus, type II (Chronic) DM II (diabetes mellitus, type II), controlled Dyslipidemia (Acute) Epidermoid cyst of neck Fatty liver GERD (gastroesophageal reflux disease) GERD (gastroesophageal reflux disease) Hemoptysis HTN (hypertension) Hypertension (Chronic) Learning disability (Resolved) Lung nodule (Acute) Medical non-compliance Mixed hearing loss of left ear (Acute) Morbid obesity (Chronic) BMI> 50 Morbid obesity with BMI of 50.0-59.9, adult Nonischemic cardiomyopathy EF 30-35% Nonischemic cardiomyopathy Obstructive sleep apnea (Chronic) Polysomnography (07/28) with severe mixed osbtructive and central apnea treated with Bipap 27/11 MARIELENA (obstructive sleep apnea) Does not comply with CPAP Peripheral neuropathy (Chronic) 2/2 DM type II. Located on the feet bilaterally. Not requiring medication. Followed by podiatry Right-sided sensorineural hearing loss (Acute) Sinus bradycardia Sinus tachycardia (Acute) TMJ (dislocation of temporomandibular joint) (Acute) Umbilical hernia (Acute) Vitamin D insufficiency Previously deficient, taking Vit D supplementation Surgical History History of carpal tunnel surgery History of cholecystectomy S/P tonsillectomy Family History Father , age 57 of an [place]. Heart disease Myocardial infarction Mother , age 67 of a ruptured neck vessel Sudden Other Depression Lung disease No pertinent family history Denies family history of Ovarian cancer Prostate cancer Breast cancer Colorectal cancer Social History Preferred Language: Greenlandic Communication Ability: Effective Visual Impairment: No Limitations Hearing Ability: Normal Pairer Inspector Required: No Beliefs That Will Affect Care: None marital status: Current Living Situation: Spouse current occupational status: unemployed Other Information That Helps Us Care for You: No Feels Safe at Home: Yes Safety Concerns: Feels Safe At This Time Smoking Status: Former smoker Tobacco Type: cigarettes ; Age Started Using Tobacco: 14 ; Age Quit Using Tobacco: 18 ; Cigarettes Per Day: 40-50 ; Do You Dip or Chew Tobacco: No ; Smoking End Date: 1997 ; Second Hand Exposure: No ; Tobacco Cessation Education Requested by Patient: No Hx Alcohol Use: Yes Alcohol type: beer and other Alcohol Intake Frequency: Rarely Hx Substance Use: No Childhood Exposure to Second-Hand Smoke: Yes Dental Care, Regularly: Yes Physical Activity Frequency: Does not Exercise Review of Systems Review of Systems: All systems reviewed & are unremarkable except as noted in HPI & below Physical Exam Constitutional: + morbidly obese Respiratory: normal respiratory effort; no respiratory distress, no labored breathing and no retractions Auscultation: + diminished lung sounds (Bases bilaterally); no rales, no rhonchi and no wheezes Cardiovascular: Rate/Rhythm: regular rate, regular rhythm and + tachycardic Heart Sounds: normal S1 and normal S2; no murmur and no cardiac rub Vessels: no JVD (Difficult to assess due to patient body habitus) and no carotid bruit Extremities: + edema (1-2+ bilateral pedal and pretibial edema) Gastrointestinal (Abdomen): Inspection/Auscultation: abdomen normal to inspection and normal bowel sounds; abdomen not distended Percussion/Palpation: abdomen soft; abdomen nontender, no guarding and abdomen not rigid Musculoskeletal: Head/Neck/Chest: normocephalic and head atraumatic Skin: no rashes, warm and dry Neurologic: moves all extremities; no focal motor deficits Psychiatric: Orientation: alert and oriented x 3 Insight: + poor insight Judgement: + poor judgement Results & Data ([facility]) Vital Signs (Past 12 Hours) Vital Signs Temp Pulse Pulse Resp BP BP Pulse Ox 05/05/19 15:52 183/150 H 05/05/19 15:32 36.5 C 106 H 18 97 05/05/19 15:00 107 H 19 97 05/05/19 14:34 111 H 19 05/05/19 14:01 91 H 28 H 171/130 H 96 05/05/19 14:00 90 30 H 96 05/05/19 13:30 94 H 29 H 94 05/05/19 13:01 91 H 26 H 160/134 H 93 05/05/19 13:00 89 29 H 91 05/05/19 12:30 102 H 23 93 05/05/19 12:00 100 H 23 191/143 H 92 05/05/19 11:30 110 H 34 H 92 05/05/19 11:02 105 H 16 94 05/05/19 11:01 104 H 19 171/127 H 94 05/05/19 11:00 105 H 12 94 05/05/19 10:39 113 H 25 H 216/152 H 93 05/05/19 10:38 117 H 05/05/19 10:00 105 H 17 05/05/19 09:50 36.6 C 110 H 22 222/156 H 94 05/05/19 09:44 108 H 26 H 05/05/19 09:40 110 H 24 222/156 H 92
[2019-05-05] MEDS ORDERED: BUMETANIDE 1 MG TAB PO SCH (17:00)
[2019-05-05] MEDS: NITROGLYCERIN 2% OINTMENT 30GM TUBE EXT SCH ×2 (17:21→22:20)
[2019-05-05] MEDS ORDERED: MoRPHine SULFATE 2 MG/ML CARP IV STA (20:21)
[2019-05-05] MEDS: CHOLECALCIFEROL 1,000 UNITS 25 MCG TAB PO SCH (21:11)
[2019-05-05] MEDS ORDERED: GLUCOSE 10 TABS/TUBE PO PRN (21:20)
[2019-05-05] MEDS ORDERED: GLUCOSE 40% GEL 15 GM TUBE PO PRN (21:20)
[2019-05-05] MEDS ORDERED: CARBOHYDRATES FOR HYPOGLYCEMIA PO PRN (21:20)
[2019-05-05] MEDS ORDERED: GLUCAGON FOR INJ 1 MG VIAL SQ PRN (21:20)
[2019-05-05] MEDS ORDERED: DEXTROSE 50% 50 ML SYRINGE IV PRN (21:20)
[2019-05-05] MEDS: PANTOprazole 40 MG TAB PO SCH (21:22)
[2019-05-05] MEDS: FUROSEMIDE 40 MG in SYRINGE 0 ML IV SCH (22:19)
[2019-05-06] MEDS: NITROGLYCERIN 2% OINTMENT 30GM TUBE EXT SCH ×4 (05:55→23:15)
[2019-05-06] MEDS: FUROSEMIDE 40 MG in SYRINGE 0 ML IV SCH ×3 (05:55→20:59)
[2019-05-06 06:21] LABS: BUN Creatinine Ratio 15.1 (10-20); Calcium 9.1 mg/dl (8.5-10.1); Est GFR (African American) 99.8; Est GFR (Non-African American) 86.1; Potassium 3.4 mmol/L (3.5-5.1)
--- NOTE | 2019-05-06 07:15 | XRay Report ---
XR chest 1V portable HISTORY: Congestive heart failure. COMPARISON: Chest 05/05/2019. FINDINGS: No pneumothorax. The heart remains enlarged. Perihilar interstitial vascular thickening has slightly improved. There are trace bilateral pleural effusions which have also improved. This is con sistent with resolving pulmonary edema. Left-sided single lead pacemaker. IMPRESSION: Improvement in the mild interstitial pulmonary edema and trace bilateral pleural effusions. ACT 112: Negative or not required by law. Electronically signed by: Andrea Bear M.D. 05/06/2019 7:14 AM
[2019-05-06] MEDS: PANTOprazole 40 MG TAB PO SCH ×2 (08:12→20:58)
[2019-05-06] MEDS: POTASSIUM CHLORIDE 20 MEQ TABCR PO SCH ×2 (08:12→16:24)
[2019-05-06] MEDS: ASPIRIN 81 MG ECTAB PO SCH (08:12)
[2019-05-06] MEDS: METOPROLOL SUCC 50MG EXT REL TAB PO SCH ×2 (08:13→20:59)
[2019-05-06] MEDS: CHOLECALCIFEROL 1,000 UNITS 25 MCG TAB PO SCH ×2 (08:13→20:58)
[2019-05-06] MEDS: INSULIN HUMAN NPH SC SCH ×2 (08:13→16:27)
[2019-05-06] MEDS: INSULIN ASPART 100 UNITS/ML 3 ML PEN SC SCH ×4 (08:17→21:45)
--- NOTE | 2019-05-06 12:35 | Cardiology Progress Note ---
Date of Service May 06, 2019 Assessment & Plan (1) Acute on chronic heart failure with reduced ejection fraction and diastolic dysfunction: (2) NICM (nonischemic cardiomyopathy): (3) Hypertensive urgency: (4) Sinus tachycardia: (5) Hemoptysis: (6) Noncompliance: Continue intravenous Lasix 40 mg every 8 hours with potassium supplementation 20 mEq twice daily. Restart aldactone 25mg daily. Follow fluid balance, daily weight, GFR, and electrolytes. Continue metoprolol and Entresto as previously ordered. ICD interrogation pending. Importance of compliance discussed with patient at length. Patient voiced understanding. Subjective Patient seen and examined at the bedside. Fluid balance -6.7 L since admission. Reports fatigue today. Reports "passing out". No dysrhythmias on telemetry. Blood pressure trending downward. Renal function remained stable. Denies chest pain or palpitations. Lower extremity edema improved. Tolerating diet and medications. Denies any further hemoptysis. Review of Systems Review of Systems: All systems reviewed & are unremarkable except as noted in HPI & below Physical Exam Constitutional: + morbidly obese Respiratory: normal respiratory effort; no respiratory distress, no labored breathing and no retractions Auscultation: + diminished lung sounds (Bases bilaterally); no rales, no rhonchi and no wheezes Cardiovascular: Rate/Rhythm: regular rate, regular rhythm and + tachycardic Heart Sounds: normal S1 and normal S2; no murmur and no cardiac rub Vessels: no JVD (Difficult to assess due to patient body habitus) and no carotid bruit Extremities: + edema (1+ bilateral pedal and pretibial edema) Gastrointestinal (Abdomen): Inspection/Auscultation: abdomen normal to inspection and normal bowel sounds; abdomen not distended Percussion/Palpation: abdomen soft; abdomen nontender, no guarding and abdomen not rigid Musculoskeletal: Head/Neck/Chest: normocephalic and head atraumatic Skin: no rashes, warm and dry Neurologic: moves all extremities; no focal motor deficits Psychiatric: Orientation: alert and oriented x 3 Insight: + poor insight Judgement: + poor judgement Results & Data Vital Signs (Past 12 Hours) Vital Signs Temp Pulse Pulse Resp BP BP Pulse Ox 05/06/19 11:24 36.5 C 89 20 130/83 98 05/06/19 08:37 73 05/06/19 04:27 36.8 C 87 22 137/96 97
[2019-05-06] MEDS: SPIRONOLACTONE 25 MG TAB PO SCH (13:06)
[2019-05-06] MEDS: HEPARIN SOD 5,000 UNIT/0.5 ML VIAL SQ SCH ×2 (13:09→21:00)
--- NOTE | 2019-05-06 14:27 | Electrocardiogram Report ---
Test Reason : Blood Pressure : / mmHG Vent. Rate : 099 BPM Atrial Rate : 099 BPM P-R Int : 156 ms QRS Dur : 110 ms QT Int : 394 ms P-R-T Axes : 037 -13 121 degrees QTc Int : 505 ms Normal sinus rhythm Possible Left atrial enlargement T wave abnormality, consider lateral ischemia Prolonged QT Abnormal ECG When compared with ECG of 05-MAY-2019 09:41, Premature ventricular complexes are no longer Present T wave inversion less evident in Lateral leads Confirmed by Bertrand Polanco ([id number]) on 05/06/2019 2:27:14 PM Referred By: REFERRED SELF Confirmed By:Severiano Poalnco
--- NOTE | 2019-05-06 22:43 | Hospitalist Progress Note ---
Date of Service May 06, 2019 Assessment & Plan (1) Acute on chronic heart failure with reduced ejection fraction and diastolic dysfunction: Acute on chronic systolic heart failure/HFrEF/NICM with most recent EF on 04/08 of 25-30% Patient was recently admitted and discharged for the same reason just 1 week ago. Patient appears to not fully grasp his condition. Explained how severe this is given his severe cardiomyopathy. An issue patient has is that he is not fully compliant with his medications and his diet. Patient is about 15 lbs above his dry weight. will continue to diurese with IV lasix. During each admission patient diureses well. But gets fluid overloaded once he goes home. Will discuss with case management. Patient will be on fluid restriction. Continue aspirin 81 mg daily, ccontinue BB and entresto NICM (nonischemic cardiomyopathy): See above Present on admission: yes Status post internal cardiac defibrillator procedure: Placed on 04/08/2019. He denies any instances of firing. Present on Admission?: Yes Noncompliance with medication regimen: This is the patient's fifth admission this calendar year: Previous admissions: 02/19-02/21, 03/20-03/22, and 03/31-04/04, and just this past week. If he is not in the heart failure program, he needs to follow in the heart failure program to prevent/reduce further admissions Present on Admission?: Yes Diabetes mellitus, type II: Hold Humalog mix 50/50, 40 units subcu daily and Trulicity. Placed on Accu-Cheks before meals and at bedtime with NovoLog coverage per scale. Present on Admission?: Yes (2) Syncope: Likely due to his primary problem. Will monitor. (3) Hypertension: BP improved. 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 placed on glycemic control. DVT prophylaxis: heparin Full code Admission and Anticipated Discharge Date Admission Date: May 05, 2019 Subjective Patient is reporting that he is feeling better. Patient though states that he has not been very active while being here though. He states that he did not take his medication when he was discharged last week and waited for about 3 days. He reports he could not afford the medication. But was able to pick it up on Sunday. Review of Systems Review of Systems: All systems reviewed & are unremarkable except as noted in HPI & below Physical Exam Constitutional: WD/WN, vitals as above well developed and well nourished Eyes: PERRL, conjunctivae normal, anicteric sclerae ENMT: external ear and nose normal, oropharynx normal Neck: trachea midline, no thyromegaly Respiratory: + uses accessory muscles and + cough Cardiovascular: Rate/Rhythm: regular rate Heart Sounds: normal S1 and normal S2 Vessels: no JVD (difficult to assess due to body habitus) Gastrointestinal (Abdomen): normal bowel sounds, soft, nontender, no hepatosplenomegaly Musculoskeletal: no cyanosis or clubbing, extremities motor strength 5/5 Skin: no rashes, warm and dry Neurologic: PERRL, EOMI, accommodation nl, no face palsy, no dysarthria Psychiatric: A+Ox3, euthymic affect Lymphatic: no cervical or axillary lymphadenopathy Results & Data ([facility]) Vital Signs (Past 12 Hours) Vital Signs Temp Pulse Resp BP BP Pulse Ox 05/06/19 19:38 36.6 C 78 20 141/86 H 96 05/06/19 15:20 36.5 C 80 20 134/84 96 05/06/19 11:24 36.5 C 89 20 130/83 98 PG Care Time/CCT Total # of Minutes Spent Total Time Spent with Patient: Total time spent is greater than 50% in coordination of care (as documented) at patient's floor/unit and/or counseling patient: Coding Level of Care Code 70627 Subseq Hosp Care Lvl 3 Diagnoses Acute on chronic heart failure with reduced ejection fraction and diastolic dysfunction I50.43 Syncope R55 Syncope type: unspecified Hypertension I10 Hypertension type: unspecified Volume overload E87.79 Hypervolemia type: other Nonproliferative retinopathy due to secondary diabetes E13.3299 Time Spent (min) 35 (1) Syncope Syncope type: unspecified Qualified Code(s): R55 - Syncope and collapse (2) Hypertension Hypertension type: unspecified Qualified Code(s): I10 - Essential (primary) hypertension (3) Volume overload Hypervolemia type: other Qualified Code(s): E87.79 - Other fluid overload
[2019-05-07] MEDS: FUROSEMIDE 40 MG in SYRINGE 0 ML IV SCH (06:04)
[2019-05-07] MEDS: NITROGLYCERIN 2% OINTMENT 30GM TUBE EXT SCH ×2 (06:04→11:58)
[2019-05-07] MEDS: HEPARIN SOD 5,000 UNIT/0.5 ML VIAL SQ SCH (06:08)
[2019-05-07 06:52] LABS: BUN Creatinine Ratio 16.4 (10-20); Calcium 9.2 mg/dl (8.5-10.1); Creatinine Clr Calc Pharmacy 100.4 ml/min; Est GFR (African American) 71.3; Est GFR (Non-African American) 61.5; Potassium 3.1 mmol/L (3.5-5.1)
[2019-05-07] MEDS: INSULIN ASPART 100 UNITS/ML 3 ML PEN SC SCH ×2 (07:52→11:59)
[2019-05-07] MEDS: INSULIN HUMAN NPH SC SCH (07:53)
[2019-05-07] MEDS: SPIRONOLACTONE 25 MG TAB PO SCH (07:56)
[2019-05-07] MEDS: CHOLECALCIFEROL 1,000 UNITS 25 MCG TAB PO SCH (07:56)
[2019-05-07] MEDS: POTASSIUM CHLORIDE 20 MEQ TABCR PO SCH ×3 (07:56→11:59)
[2019-05-07] MEDS: PANTOprazole 40 MG TAB PO SCH (07:56)
[2019-05-07] MEDS: METOPROLOL SUCC 50MG EXT REL TAB PO SCH (07:56)
[2019-05-07] MEDS: ASPIRIN 81 MG ECTAB PO SCH (07:57)
--- NOTE | 2019-05-07 11:10 | Cardiology Progress Note ---
Date of Service May 07, 2019 Assessment & Plan (1) Acute on chronic heart failure with reduced ejection fraction and diastolic dysfunction: (2) NICM (nonischemic cardiomyopathy): (3) Hypertensive urgency: (4) Sinus tachycardia: (5) Hemoptysis: (6) Noncompliance: Discontinue IV diuretic therapy. Recommend restarting torsemide 80 mg twice daily. Continue Aldactone 25 mg daily. Replace potassium orally today. Repeat basic metabolic panel in 1 week. I had a long discussion with the patient regarding importance of compliance. Also discussed significant risk associated with potential infection with Julia 19 given his underlying cardiovascular disease. He understands he must remain at home and practice appropriate social distancing. He voiced understanding, however, insight remains poor. Follow-up with cardiology as scheduled 05/20/2019. Subjective Patient seen and examined the bedside. Fluid balance negative an additional 1500 cc. Patient feeling better from a cardiovascular perspective. Edema improved. Denies chest pain or palpitations. Heart rate trending downward with addition of beta-mansoor therapy. ICD interrogation demonstrates normal function with adequate battery life. No evidence of ventricular tachycardia or ventricular fibrillation. Review of Systems Review of Systems: All systems reviewed & are unremarkable except as noted in HPI & below Physical Exam Constitutional: + morbidly obese Respiratory: normal respiratory effort; no respiratory distress, no labored breathing and no retractions Auscultation: + diminished lung sounds (Bases bilaterally); no rales, no rhonchi and no wheezes Cardiovascular: Rate/Rhythm: regular rate, regular rhythm and + tachycardic Heart Sounds: normal S1 and normal S2; no murmur and no cardiac rub Vessels: no JVD (Difficult to assess due to patient body habitus) and no carotid bruit Extremities: + edema (1+ bilateral pedal and pretibial edema) Gastrointestinal (Abdomen): Inspection/Auscultation: abdomen normal to inspection and normal bowel sounds; abdomen not distended Percussion/Palpation: abdomen soft; abdomen nontender, no guarding and abdomen not rigid Musculoskeletal: Head/Neck/Chest: normocephalic and head atraumatic Skin: no rashes, warm and dry Neurologic: moves all extremities; no focal motor deficits Psychiatric: Orientation: alert and oriented x 3 Insight: + poor insight Judgement: + poor judgement Results & Data Vital Signs (Past 12 Hours) Vital Signs Temp Pulse Resp BP BP Pulse Ox Pulse Ox 03/25/20 07:27 36.5 C 81 20 139/96 97 05/07/19 04:18 36.6 C 73 18 123/80 97 05/07/19 00:00 96 05/06/19 23:31 36.4 C L 75 19 132/70 96
[2019-05-07] MEDS ORDERED: FUROSEMIDE 40 MG in SYRINGE 0 ML IV SCH (17:00)
[2019-05-07] MEDS ORDERED: TORSEMIDE 20 MG TAB PO SCH (17:00)
--- NOTE | 2019-05-13 22:42 | Discharge Summary ---
Date of Service May 07, 2019 Admission HPI Per Admitting Provider Patient is a poor historian. Patient reports that he passed out at 4 am this morning. He reports he was sitting at the kitchen table and he fell asleep but then he fell out of his chair and fell on the carpeted floor. At 8am, his stepchildren found him asleep on the floor, and woke him up. He stated he was weak and couldn't get up. He said he can walk from bedroom to kitchen but passed but almost again. Patient reports that he is spitting up blood for the past 3 weeks. He reports that his hemoptysis has occurred secondary to the pacemaker that was inserted. He does not understand why he keeps on getting swollen at home. He states he is "compliant" with his medicine. Principal Diagnosis Acute CHF Discharge Exam Constitutional WD/WN, vitals as above well developed and well nourished Eyes PERRL, conjunctivae normal, anicteric sclerae ENMT external ear and nose normal, oropharynx normal Neck trachea midline, no thyromegaly Respiratory normal respiratory effort, lungs clear to auscultation Cardiovascular Rate/Rhythm: regular rate Heart Sounds: normal S1 and normal S2 Vessels: no JVD (difficult to assess due to body habitus) Gastrointestinal (Abdomen) normal bowel sounds, soft, nontender, no hepatosplenomegaly Musculoskeletal no cyanosis or clubbing, extremities motor strength 5/5 Skin no rashes, warm and dry Neurologic PERRL, EOMI, accommodation nl, no face palsy, no dysarthria Psychiatric A+Ox3, euthymic affect Lymphatic no cervical or axillary lymphadenopathy Discharge Data Allergies Allergy/AdvReac Type Severity Reaction Status Date / Time ceftriaxone Allergy Severe SHORTNESS Verified 05/05/19 09:50 OF BREATH lidocaine Allergy Severe SHORTNESS Verified 05/05/19 09:50 OF BREATH, diaphoretic, hives procaine Allergy Severe SHORTNESS Verified 05/05/19 09:50 OF BREATH, diaphoretic, hives amoxicillin Allergy Intermediate HIVES/FACIAL Verified 05/05/19 09:50 SWELLING clavulanic acid Allergy Intermediate HIVES/FACIAL Verified 05/05/19 09:50 SWELLING lisinopril Allergy Intermediate HIVES Verified 05/05/19 09:50 albuterol Allergy Mild proair Verified 05/05/19 09:50 "trouble taking breaths" acetaminophen AdvReac Mild NAUSEA Verified 05/05/19 09:50 Consultations 05/05/19 13:36 ED Decision to Admit Stat 05/05/19 15:58 Consult Cardiology Routine Ordered Studies 05/05/19 09:56 CT head/brain wo con Stat 05/05/19 13:35 CT angio chest PE protocol Stat Hospital Course (1) Acute on chronic heart failure with reduced ejection fraction and diastolic dysfunction: Acute on chronic systolic heart failure/HFrEF/NICM with most recent EF on 04/08 of 25-30% Patient was recently admitted and discharged for the same reason just 1 week ago. Patient appears to not fully grasp his condition. Explained how severe this is given his severe cardiomyopathy. An issue patient has is that he is not fully compliant with his medications and his diet. Patient was about 15 lbs above his dry weight at admission. Patient improved with IV Diuresis.. During each admission patient diureses well. But gets fluid overloaded once he goes home. Patient does not appear to fully comprehend his illness. Patient will be on fluid restriction. Will resume diuretics at discharge. Continue aspirin 81 mg daily, ccontinue BB and entresto NICM (nonischemic cardiomyopathy): See above Present on admission: yes Status post internal cardiac defibrillator procedure: Placed on 04/08/2019. He denies any instances of firing. Present on Admission?: Yes Noncompliance with medication regimen: This is the patient's fifth admission this calendar year: Previous admissions: 02/19-02/21, 03/20-03/22, and 03/31-04/04, and just this past week. If he is not in the heart failure program, he needs to follow in the heart failure program to prevent/reduce further admissions Present on Admission?: Yes Diabetes mellitus, type II: Hold Humalog mix 50/50, 40 units subcu daily and Trulicity. Placed on Accu-Cheks before meals and at bedtime with NovoLog coverage per scale. Present on Admission?: Yes (2) Syncope: Likely due to his primary problem. Will monitor. (3) Hypertension: BP improved. 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: resume outpatient regimen as described below DVT prophylaxis: heparin Full code Total Time Total Time Spent Total Time Spent (In Minutes): 35 Total Time Includes: Examination of the Patient, Discharge Planning and Medication Reconciliation Discharge Plan Discharge Items Patient Disposition: Home - Self-Care Reason For Visit: CHF Discharge Diagnosis: Congestive Heart Failure Activity: Resume your previous activity Non-emergency contact: Primary Care Provider Call non-emergency contact if: you have any medication questions Follow-up/Referrals: Alejandra Geronimo CRNP, MS, ALTERNATIVE ENERGY TECHNICIAN-C [Primary Care Provider] - 05/19/19 11:00 am (HEART FAILURE CLINIC WILL CALL WITH A FOLLOW UP APT. ) Shyanne Stern PA-C [Physician Area Sales Manager] - 05/20/19 2:00 pm (Please, follow up at [facility] with Shyanne Stern PA-C on SundayMay 19 at 2:00 pm. *If you need to change this appointment, call the office at [phone].) Diet: Regular Addtl Attending Provider Instructions: Call 911 and go to the Emergency Room if: * You have tightness or pain in your chest that does not go away with rest or Nitroglycerin * You are very short of breath even with rest Call your doctor if any of the following symptoms or problems start or get worse: * Shortness of breath or difficulty breathing * Wake up at night short of breath * Chest pain * Cough * Swelling of your hands, fee, or legs * More fatigued or tired with your normal activity * Palpitations - sudden fast heart beats WEIGHT * Weigh yourself every morning after using the bathroom. * Use the same scale. * Wear the same amount of clothing. * Write your weight down on your chart. * Call your doctor if you gain more than 2-3 pounds in 1-2 days. MEDICATIONS * Use this discharge instruction sheet for instructions. * Take your medications at the time your doctor ordered. * Do not skip a dose of your medicines. * If you miss a dose of medicine, take as soon as possible, but DO NOT DOUBLE A DOSE. * Read your medicine information when you get home. * Know all of the side effects of your medicine. * Call your doctor's office if you have any side effects. * Be sure all of your doctors know what medicine and herbs you take (including cold, flu, and herbal medicine). * Pain Medicine: If you do not get relief from your pain, please call your doctor for help. Take the following with you to your follow-up doctor appointments: * Weight Chart * Medication List * List of questions Do not drink excessive alcohol, beer or wine. Followup with Heart failure clinic in 1-2 weeks Pending Studies at Discharge: No Stand-Alone Forms: My [facility] Security, Smoking Cessation Medications and DC Order Prescriptions: New torsemide 20 mg tablet 80 mg PO BID 30 Days Qty: 240 RF: 0 spironolactone 25 mg Tablet 25 mg PO QAM Qty: 30 RF: 0 Continued (DME) lancets [OneTouch Delica Plus Lancet] 30 gauge misc See Dose Instructions .ROUTE .MEDSUPPLY Qty: 400 RF: 3 (DME) OneTouch Verio strip See Dose Instructions .ROUTE .MEDSUPPLY Qty: 400 RF: 3 potassium chloride [K-Tab] 20 mEq tablet extended release 20 meq PO BID RF: 0 albuterol sulfate [Ventolin HFA] 90 mcg/actuation HFA aerosol inhaler 1 puffs INH QID Qty: 18 RF: 2 esomeprazole magnesium [Nexium] 20 mg capsule,delayed release(DR/EC) 20 mg PO BID RF: 0 (DME) Oxygen Home Liters Per Minute See Rx Instructions .ROUTE .MEDSUPPLY Qty: 1 RF: 0 aspirin [Aspirin Low Dose] 81 mg tablet,delayed release (DR/EC) 81 mg PO QAM RF: 0 nitroglycerin [Nitrostat] 0.4 mg tablet, sublingual 0.4 mg sublingual UD PRN (Reason: Chest Pain) RF: 0 Trulicity 1.5 mg/0.5 mL pen injector 1.5 mg SQ WE RF: 0 ondansetron 4 mg tablet,disintegrating 4 mg PO Q8H PRN (Reason: nausea and vomiting) Qty: 30 RF: 0 cholecalciferol (vitamin D3) [Vitamin D3] 1,000 unit capsule 2,000 units PO BID RF: 0 Entresto 97-103 mg tablet 1 tab PO BID RF: 0 metolazone 5 mg tablet 5 mg PO MOTH RF: 0 budesonide [Pulmicort] 0.25 mg/2 mL suspension for nebulization 0.25 mg inhalation UD RF: 0 bumetanide 2 mg tablet 2 mg PO BID 30 Days Qty: 60 RF: 0 Changed metoprolol succinate [Toprol XL] 200 mg tablet extended release 24 hr 200 mg PO DAILY Qty: 0 RF: 0 Discontinued diclofenac sodium [Voltaren] 1 % gel 2 gm TOP QID RF: 0 Discharge Orders: Discharge Order (Routine); Ordered 05/07/19 Ordered By: Shemar Sky Admission Data Admit Date/Time: 05/05/19 14:08 Attending Provider: Shemar Sky Admit Provider: Shemar Sky Primary Care Provider: Alejandra Geronimo Other Providers: Migue Packer Thomas O Other Interventions: Discharge Summary Assessment (RN) Last Done: 05/07/19 14:32 DC Date/Time DO NOT enter until pt leaves facility: 05/07/19 15:05 Coding Level of Care Code D/C Day Management >30 mins Diagnoses Acute on chronic heart failure with reduced ejection fraction and diastolic dysfunction I50.43 Syncope R55 Syncope type: unspecified Hypertension I10 Hypertension type: unspecified Volume overload E87.79 Hypervolemia type: other Nonproliferative retinopathy due to secondary diabetes E13.3299 Time Spent (min) 35
== END 2019-05-07 15:05 | disposition home or self-care (01) ==
LOC: ED 09:32 → 2E 14:08 → INTOOBSV 14:08 → 2E 15:28

== ENCOUNTER 2019-05-25 06:28 | Inpatient (IN) ==
[2019-05-25] MEDS ORDERED: MoRPHine SULFATE 4 MG/ML 1 ML CARP\\VIAL IV STA (06:51)
--- NOTE | 2019-05-25 06:56 | Emergency Department Note ---
History of Present Illness General Chief complaint: Chest Pain Stated complaint: chest pain, shortness of breath Time Seen by Provider: 05/25/19 06:35 Source: patient, RN notes reviewed and old records reviewed Mode of arrival: EMS Limitations: no limitations History of Present Illness This patient has a very complex medical history including CHF and ischemic cardiomyopathy, comes in after having shortness of breath cough dizziness hemop tysis and chest pain. The chest pain is worse with coughing. He did receive 4 sublingual nitroglycerin on route by EMS without much change. He had no fall or trauma. No blood or melena in his stool. No changed medications recently or any new medications. No recent travel. He denies he had increasing lower extremity edema or weight gain. No exposure to any coronavirus known. His defibrillator fired several times as well. He does have central chest pain. Home Medications Home Medications Medication Instructions Recorded Confirmed Type esomeprazole magnesium 20 mg 20 mg PO BID cap 09/05/18 05/25/19 History capsule,delayed release aspirin 81 mg tablet,delayed 81 mg PO QAM 09/17/18 05/25/19 History release cholecalciferol (vitamin D3) 25 2,000 units PO BID cap 09/17/18 05/25/19 History mcg (1,000 unit) capsule OneTouch Delica Plus Lancet 30 #400 ea NS 12/23/18 05/05/19 Rx gauge OneTouch Verio #400 ea NS 12/23/18 05/05/19 Rx potassium chloride 20 mEq 20 meq PO BID 02/25/19 05/25/19 History tablet,extended release albuterol sulfate 90 mcg/actuation 1 puffs INH QID #18 gm 03/26/19 05/25/19 Rx aerosol inhaler sacubitril 97 mg-valsartan 103 mg 1 tab PO BID tab 04/10/19 05/25/19 History tablet Trulicity 1.5 mg SQ WE 04/24/19 05/25/19 History nitroglycerin [Nitrostat] 0.4 mg SUBLINGUAL UD PRN 04/24/19 05/25/19 History ondansetron 4 mg PO Q8H PRN #30 tab 04/24/19 05/25/19 Rx metolazone 5 mg PO MOTH 04/29/19 05/25/19 History bumetanide 2 mg PO BID 30 Days #60 tab 04/30/19 05/25/19 Rx metoprolol succinate [Toprol XL] 200 mg PO DAILY #0 tab 05/07/19 05/25/19 Rx spironolactone 25 mg PO QAM #30 tab 05/07/19 05/25/19 Rx torsemide 80 mg PO BID 30 Days #240 tab 05/07/19 05/25/19 Rx Oxygen Home #1 ea 05/19/19 05/19/19 Rx doxycycline hyclate 100 mg capsule 100 mg PO BID #20 cap 05/22/19 05/25/19 Rx fluticasone 250 mcg-salmeterol 50 1 puffs INH BID #60 ea 05/23/19 05/25/19 Rx mcg/dose blistr powdr for inhalation Allergies Allergy/AdvReac Type Severity Reaction Status Date / Time ceftriaxone Allergy Severe SHORTNESS Verified 05/25/19 08:14 OF BREATH lidocaine Allergy Severe SHORTNESS Verified 05/25/19 08:14 OF BREATH, diaphoretic, hives procaine Allergy Severe SHORTNESS Verified 05/25/19 08:14 OF BREATH, diaphoretic, hives amoxicillin Allergy Intermediate HIVES/FACIAL Verified 05/25/19 08:14 SWELLING clavulanic acid Allergy Intermediate HIVES/FACIAL Verified 05/25/19 08:14 SWELLING lisinopril Allergy Intermediate HIVES Verified 05/25/19 08:14 acetaminophen AdvReac Mild NAUSEA Verified 05/25/19 08:14 albuterol AdvReac Mild proair Verified 05/25/19 08:14 "trouble taking breaths" Past Med/Surg History Medical History Acquired claw toe of left foot (Acute) Acquired claw toe of right foot (Acute) CHF exacerbation (Inactive) Cognitive impairment Depression with anxiety (Inactive) Dilatation of thoracic aorta (Inactive) Fatty liver Hypomagnesemia (Inactive) Hypoxia (Inactive) Iliac aneurysm (Inactive) Learning disability (Resolved) Left-sided weakness Lung nodule (Inactive) NICM (nonischemic cardiomyopathy) Pt admitted for elective ICD. Underwent procedure without any complications monitored over night and discharged home. Noncompliance with medication regimen Pulmonary edema (Inactive) Umbilical hernia (Inactive) Vitamin D insufficiency Previously deficient, taking Vit D supplementation Volume overload (Inactive) Surgical History History of carpal tunnel surgery History of cholecystectomy S/P tonsillectomy Family History Father , age 57 of an ID. 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 Beliefs That Will Affect Care: None marital status: Current Living Situation: Spouse current occupational status: unemployed Feels Safe at Home: Yes Safety Concerns: Feels Safe At This Time Smoking Status: Former smoker Tobacco Type: cigarettes ; Age Started Using Tobacco: 14 ; Age Quit Using Tobacco: 18 ; Cigarettes Per Day: 40-50 ; Second Hand Exposure: No ; Hx Alcohol Use: Yes Alcohol type: beer and hard liquor Alcohol Intake Frequ ency: Rarely Hx Substance Use: No Childhood Exposure to Second-Hand Smoke: Yes Dental Care, Regularly: Yes Physical Activity Frequency: Does not Exercise Review of Systems A total of 10 systems reviewed and were otherwise negative Physical Exam Vital Signs Vital Signs - 24 hr 05/25/19 06:30 05/25/19 06:46 05/25/19 07:37 Temperature 37.0 C Temperature Source Oral Pulse Rate 121 H 112 H Pulse Rate [Apical] 112 H Pulse Rhythm Regular Pulse Rhythm [Apical] Regular Pulse Strength [Apical] Normal Respiratory Rate 24 28 H Respiratory Effort / Characteristics Spontaneous Labored Short of Breath Non-Labored Spontaneous Respiratory Depth Normal Respiratory Pattern Regular Blood Pressure 174/132 H Blood Pressure [Left Arm] 218/140 H Blood Pressure Mean 146 Blood Pressure Mean [Left Arm] 166 Blood Pressure Position [Left Arm] Sitting Pulse Oximetry 93 90 96 Oxygen Delivery Method Nasal Cannula Room Air Nasal Cannula Oxygen Flow Rate 4 4 Sepsis Recent Fever Within 48 Hours No Sepsis Action Taken by Nursing No Action Required 05/25/19 08:30 05/25/19 09:09 05/25/19 09:32 Temperature Temperature Source Pulse Rate 106 H Pulse Rate [Apical] 107 H 104 H Pulse Rhythm Pulse Rhythm [Apical] Regular Regular Pulse Strength [Apical] Normal Normal Respiratory Rate 28 H 26 H 24 Respiratory Effort / Characteristics Non-Labored Spontaneous Non-Labored Spontaneous Respiratory Depth Normal Normal Respiratory Pattern Regular Regular Blood Pressure 152/109 H Blood Pressure [Left Arm] 185/125 H 161/126 H Blood Pressure Mean Blood Pressure Mean [Left Arm] 145 137 Blood Pressure Position [Left Arm] Sitting Sitting Pulse Oximetry 95 95 95 Oxygen Delivery Method Nasal Cannula Nasal Cannula Nasal Cannula Oxygen Flow Rate 4 4 4 Sepsis Recent Fever Within 48 Hours Sepsis Action Taken by Nursing General: Well developed well nourished chronically ill-appearing middle-age male who appears mildly diaphoretic and tachypneic in no acute distress, breathing comfortably on room air. Normal speech HEENT: Normal cephalic atraumatic. Pupils are equal round and reactive to light. Extraocular movements are intact. Oropharynx is pink with moist mucous membranes. No swelling of the mouth lips or tongue. Neck: Supple with a midline trachea. No meningeal signs or stiffness, no JVD or bruits. No Stridor. Chest: Mild increased work of breathing but speaking full sentence Heart: Tachycardic but regular. Abdomen: Soft nontender, nondistended without rebound guarding or rigidity. Extremities: No cyanosis clubbing. Trace bilateral edema. No calf tenderness or assymetry Spine/Back. Non tender to palpation. No CVA tenderness Skin: Good turgor without rashes. Neurologic exam: Nonfocal with motor and sensation are intact and symmetrical throughout. Course Administered Medications Bumetanide 1 mg/ Syringe 4 mls @ 4 mls/min IV NOW SUKHWINDER Stop: 06/24/19 07:44 Last Admin: 05/25/19 08:01 Dose: 4 mls/min Documented by: [id number] Discontinued Medications Morphine Sulfate (Morphine Sulfate) 4 mg IV NOW STA Stop: 05/25/19 06:52 Last Admin: 05/25/19 07:34 Dose: 4 mg Documented by: [id number] Nitroglycerin (Nitro-Bid 2%) 1 inch EXT NOW ONE Stop: 05/25/19 07:42 Last Admin: 05/25/19 08:01 Dose: 1 inch Documented by: [id number] Impression & Plan CHF (congestive heart failure), Chest pain, Coughing up blood, Sinus tachycardia, Hypoxemia, SOB (shortness of breath), Cardiac defibrillator in place Critical Care Time Critical Care Time: Yes Total Critical Care Time: 32 Due to the patient's congestive heart failure, hypoxemia and complicated medical history with frequent reassessment and several meds needed, I have personally spent greater than 32 minutes of critical care time in the direct management of this patient. This includes bedside care, interpretation of diagnostic studies, and testing, discussion with consultants, patient, and family members, and other required patient management activities. This 32 minutes is in excess of all separately billable procedures. Discharge Plan Visit Data Chief Complaint: Chest Pain Stated Complaint: chest pain, shortness of breath ED Provider: Jason Noland Discharge Problem: CHF (congestive heart failure), Chest pain, Coughing up blood, Sinus tac hycardia, Hypoxemia, SOB (shortness of breath), Cardiac defibrillator in place Patient Disposition: Admitted As Inpatient Discharge Instructions Interventions: ED Discharge Assessment Last Done: 05/25/19 09:32 Forms Stand Alone Forms: My [facility] Scicasts Prescriptions Prescriptions: No Action (DME) lancets [OneTouch Delica Plus Lancet] 30 gauge misc See Dose Instructions .ROUTE .MEDSUPPLY Qty: 400 RF: 3 (DME) OneTouch Verio strip See Dose Instructions .ROUTE .MEDSUPPLY Qty: 400 RF: 3 fluticasone propion-salmeterol [Advair Diskus] 250-50 mcg/dose blister with device 1 puffs INH BID Qty: 60 RF: 2 potassium chloride [K-Tab] 20 mEq tablet extended release 20 meq PO BID RF: 0 albuterol sulfate [Ventolin HFA] 90 mcg/actuation HFA aerosol inhaler 1 puffs INH QID Qty: 18 RF: 2 (DME) Oxygen Home Liters Per Minute See Rx Instructions .ROUTE .MEDSUPPLY Qty: 1 RF: 5 doxycycline hyclate 100 mg capsule 100 mg PO BID Qty: 20 RF: 0 esomeprazole magnesium [Nexium] 20 mg capsule,delayed release(DR/EC) 20 mg PO BID RF: 0 aspirin [Aspirin Low Dose] 81 mg tablet,delayed release (DR/EC) 81 mg PO QAM RF: 0 nitroglycerin [Nitrostat] 0.4 mg tablet, sublingual 0.4 mg sublingual UD PRN (Reason: Chest Pain) RF: 0 Trulicity 1.5 mg/0.5 mL pen injector 1.5 mg SQ WE RF: 0 ondansetron 4 mg tablet,disintegrating 4 mg PO Q8H PRN (Reason: nausea and vomiting) Qty: 30 RF: 0 torsemide 20 mg tablet 80 mg PO BID 30 Days Qty: 240 RF: 0 spironolactone 25 mg Tablet 25 mg PO QAM Qty: 30 RF: 0 metoprolol succinate [Toprol XL] 200 mg tablet extended release 24 hr 200 mg PO DAILY Qty: 0 RF: 0 cholecalciferol (vitamin D3) [Vitamin D3] 1,000 unit capsule 2,000 units PO BID RF: 0 Entresto 97-103 mg tablet 1 tab PO BID RF: 0 metolazone 5 mg tablet 5 mg PO MOTH RF: 0 bumetanide 2 mg tablet 2 mg PO BID 30 Days Qty: 60 RF: 0 Referrals Referrals: Alejandra Geronimo CRNP, MS, [facility] [Primary Care Provider] - Medical Decision Making Differential Diagnosis Includes but is not limited to: CHF, pneumonia, sepsis, arrhythmia, acute coronary syndrome, coronavirus, COPD, electrolyte or metabolic abnormality Medical Records Attestation: I reviewed the patient's medical records. Home Medications Current Medication List: was personally reviewed by me Laboratory Data Attestation: I reviewed the patient's lab results. Result diagrams: 05/25/19 06:50 05/25/19 06:50 Lab Results 05/25/19 05/25/19 05/25/19 Range/Units 06:50 06:50 06:50 WBC 10.35 (4.8-10.8) K/uL RBC 4.89 (4.7-6.1) M/uL Hgb 13.6 L (14.0-18.0) g/dL Hct 41.0 L (42-52) % MCV 83.8 (80-100) fL MCH 27.8 (25-34) pg MCHC 33.2 (32-36) g/dL RDW Std Deviation 47.2 H (36.4-46.3) fL RDW Coeff of Zoltan 15.4 H (11.5-14.5) % Plt Count 188 (130-400) K/uL MPV 10.0 (7.4-10.4) fL Immature Gran % (Auto) 0.3 % Neut % (Auto) 76.5 % Lymph % (Auto) 16.9 % [place] % (Auto) 5.4 % Eos % (Auto) 0.7 % Baso % (Auto) 0.2 % Immature Gran # (Auto) 0.03 H (0.00-0.02) K/uL Neut # (Auto) 7.92 H (1.4-6.5) K/uL Lymph # (Auto) 1.75 (1.2-3.4) K/uL [place] # (Auto) 0.56 (0.11-0.59) K/uL Eos # (Auto) 0.07 (0-0.5) K/uL Baso # (Auto) 0.02 (0-0.2) K/uL PT 10.8 (9.0-12.0) Seconds INR 1.0 (0.9-1.1) APTT 29.4 (21.0-31.0) Seconds PTT Ratio 1.1 Sodium 139 (136-145) mmol/L Potassium 4.0 (3.5-5.1) mmol/L Chloride 109 H (98-107) mmol/L Carbon Dioxide 24 (21-32) mmol/L Anion Gap 5.0 (3-11) BUN 19 H (7-18) mg/dl Creatinine 0.97 (0.6-1.4) mg/dl Est Cr Clr Drug Dosing 146.4 ml/min Est GFR ( Amer) 111.1 Est GFR (Non-Af Amer) 95.9 BUN/Creatinine Ratio 19.4 (10-20) Glucose 186 H (70-99) mg/dl Lactate (0.4-2.0) mmol/L Calcium 8.7 (8.5-10.1) mg/dl Magnesium 1.8 (1.8-2.4) mg/dl Total Bilirubin 0.6 (0.2-1) mg/dl AST 23 (15-37) U/L ALT 24 (12-78) U/L Alkaline Phosphatase 92 (45-117) U/L Troponin I 0.032 (0-0.045) ng/ml NT-Pro-B Natriuret Pep 3036 H (0-450) pg/ml Total Protein 7.1 (6.4-8.2) gm/dl Albumin 3.1 L (3.4-5.0) gm/dl Globulin 4.0 (2.5-4.0) gm/dl Albumin/Globulin Ratio 0.8 L (0.9-2) Procalcitonin (0-0.5) ng/ml Urine Color Urine Appearance (Clear) Urine pH (4.5-7.5) Ur Specific Bon[place] (1.000-1.030) Urine Protein (Negative) Urine Glucose (UA) (Negative) Urine Ketones (Negative) Urine Blood (Negative) Urine Nitrite (Negative) Urine Bilirubin (Negative) Urine Urobilinogen (Negative) Ur Leukocyte Esterase (Negative) Urine WBC (Auto) (0-5) /hpf Urine RBC (Auto) (0-4) /hpf U Hyaline Cast (Auto) (0-5) /lpf U Epithel Cells (Auto) (0-5) /lpf Urine Bacteria (Auto) (Negative) COVID-19 PCR 05/25/19 05/25/19 05/25/19 Range/Units 06:50 06:50 06:50 WBC (4.8-10.8) K/uL RBC (4.7-6.1) M/uL Hgb (14.0-18.0) g/dL Hct (42-52) % MCV (80-100) fL MCH (25-34) pg MCHC (32-36) g/dL RDW Std Deviation (36.4-46.3) fL RDW Coeff of Zoltan (11.5-14.5) % Plt Count (130-400) K/uL MPV (7.4-10.4) fL Immature Gran % (Auto) % Neut % (Auto) % Lymph % (Auto) % [place] % (Auto) % Eos % (Auto) % Baso % (Auto) % Immature Gran # (Auto) (0.00-0.02) K/uL Neut # (Auto) (1.4-6.5) K/uL Lymph # (Auto) (1.2-3.4) K/uL [place] # (Auto) (0.11-0.59) K/uL Eos # (Auto) (0-0.5) K/uL Baso # (Auto) (0-0.2) K/uL PT (9.0-12.0) Seconds INR (0.9-1.1) APTT (21.0-31.0) Seconds PTT Ratio Sodium (136-145) mmol/L Potassium (3.5-5.1) mmol/L Chloride (98-107) mmol/L Carbon Dioxide (21-32) mmol/L Anion Gap (3-11) BUN (7-18) mg/dl Creatinine (0.6-1.4) mg/dl Est Cr Clr Drug Dosing ml/min Est GFR ( Amer) Est GFR (Non-Af Amer) BUN/Creatinine Ratio (10-20) Glucose (70-99) mg/dl Lactate 1.1 (0.4-2.0) mmol/L Calcium (8.5-10.1) mg/dl Magnesium (1.8-2.4) mg/dl Total Bilirubin (0.2-1) mg/dl AST (15-37) U/L ALT (12-78) U/L Alkaline Phosphatase (45-117) U/L Troponin I (0-0.045) ng/ml NT-Pro-B Natriuret Pep (0-450) pg/ml Total Protein (6.4-8.2) gm/dl Albumin (3.4-5.0) gm/dl Globulin (2.5-4.0) gm/dl Albumin/Globulin Ratio (0.9-2) Procalcitonin < 0.05 (0-0.5) ng/ml Urine Color Urine Appearance (Clear) Urine pH (4.5-7.5) Ur Specific [place] (1.000-1.030) Urine Protein (Negative) Urine Glucose (UA) (Negative) Urine Ketones (Negative) Urine Blood (Negative) Urine Nitrite (Negative) Urine Bilirubin (Negative) Urine Urobilinogen (Negative) Ur Leukocyte Esterase (Negative) Urine WBC (Auto) (0-5) /hpf Urine RBC (Auto) (0-4) /hpf U Hyaline Cast (Auto) (0-5) /lpf U Epithel Cells (Auto) (0-5) /lpf Urine Bacteria (Auto) (Negative) COVID-19 PCR NEGATIVE 05/25/19 Range/Units 09:14 WBC (4.8-10.8) K/uL RBC (4.7-6.1) M/uL Hgb (14.0-18.0) g/dL Hct (42-52) % MCV (80-100) fL MCH (25-34) pg MCHC (32-36) g/dL RDW Std Deviation (36.4-46.3) fL RDW Coeff of Zoltan (11.5-14.5) % Plt Count (130-400) K/uL MPV (7.4-10.4) fL Immature Gran % (Auto) % Neut % (Auto) % Lymph % (Auto) % [place] % (Auto) % Eos % (Auto) % Baso % (Auto) % Immature Gran # (Auto) (0.00-0.02) K/uL Neut # (Auto) (1.4-6.5) K/uL Lymph # (Auto) (1.2-3.4) K/uL [place] # (Auto) (0.11-0.59) K/uL Eos # (Auto) (0-0.5) K/uL Baso # (Auto) (0-0.2) K/uL PT (9.0-12.0) Seconds INR (0.9-1.1) APTT (21.0-31.0) Seconds PTT Ratio Sodium (136-145) mmol/L Potassium (3.5-5.1) mmol/L Chloride (98-107) mmol/L Carbon Dioxide (21-32) mmol/L Anion Gap (3-11) BUN (7-18) mg/dl Creatinine (0.6-1.4) mg/dl Est Cr Clr Drug Dosing ml/min Est GFR ( Amer) Est GFR (Non-Af Amer) BUN/Creatinine Ratio (10-20) Glucose (70-99) mg/dl Lactate (0.4-2.0) mmol/L Calcium (8.5-10.1) mg/dl Magnesium (1.8-2.4) mg/dl Total Bilirubin (0.2-1) mg/dl AST (15-37) U/L ALT (12-78) U/L Alkaline Phosphatase (45-117) U/L Troponin I (0-0.045) ng/ml NT-Pro-B Natriuret Pep (0-450) pg/ml Total Protein (6.4-8.2) gm/dl Albumin (3.4-5.0) gm/dl Globulin (2.5-4.0) gm/dl Albumin/Globulin Ratio (0.9-2) Procalcitonin (0-0.5) ng/ml Urine Color Yellow Urine Appearance Clear (Clear) Urine pH 5.0 (4.5-7.5) Ur Specific Bonita 1.015 (1.000-1.030) Urine Protein Trace H (Negative) Urine Glucose (UA) Negative (Negative) Urine Ketones Negative (Negative) Urine Blood Negative (Negative) Urine Nitrite Negative (Negative) Urine Bilirubin Negative (Negative) Urine Urobilinogen Negative (Negative) Ur Leukocyte Esterase Negative (Negative) Urine WBC (Auto) 0 (0-5) /hpf Urine RBC (Auto) 0-4 (0-4) /hpf U Hyaline Cast (Auto) 1-5 (0-5) /lpf U Epithel Cells (Auto) 5-10 H (0-5) /lpf Urine Bacteria (Auto) Negative (Negative) COVID-19 PCR Imaging Data Attestation: I personally reviewed and interpreted this imaging study as follows: My Impression: Chest x-ray: Congestive heart failure changes that are worse when I compare to the old one. No pneumothorax ECG Data Attestation: I personally reviewed and interpreted this ECG as follows: Indication: + chest pain and + SOB/dyspnea Rate (beats per minute): 125 Rhythm: + sinus tachycardia ECG Intervals/blocks: + Normal QT and + Normal DE ECG [place]: + Normal ECG ST segments: + Normal ST segments Comparison ECG Date: from (05/05/19) Change: no significant change Blood Pressure Blood Pressure Findings: Elevated blood pressure Blood Pressure Disposition: further management by hospitalist [facility] Narrative This patient comes in as described above. He has a significant past medical history. He presents with chest pain, hemoptysis, tachycardi,a and his defibrillator firing. He is actually hypertensive. Initial concerns were for CHF or sepsis or arrhythmia. He was placed on a cardiac rehabilitation specialist room C5. He does not have any known covid risk factors however he has been in and out of the health system and I felt that he needed to be Covid tested given his symptoms. Also given the fact that he was going to be admitted, I did order the rapid Covid test. Chest x-ray,EKG, and multiple blood testing was obtained including blood cultures. His EKG does show tachycardia but no ischemic changes. He was reassessed frequently. He was complaining of pain in his chest that seemed more pleuritic he was given nitroglycerin on route without any change. I did give him morphine 4 mg IV here he says he has had this without any trouble. He has no white count or fever to suggest infection. His hemoglobin is stable at 13. He has no significant electrolyte or metabolic abnormalities. Chest x-ray does show congestive heart failure. I did give him Bumex 1 mg IV and put 1 inch nitroglycerin paste on him as well. This should also help his pressure. We did interrogate his pacemaker/defibrillator and there was no firing of defibrillator or significant arrhythmia I discussed case Dr. Cadet as I do think he will need to be admitted for further treatment and evaluation. The patient does seem to be much more comfortable and will be admitted/observed. His blood pressure is trending downward with the Nitropaste and Bumex. 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 He was noted to be in sinus tach at 120. Discharge Problem: CHF (congestive heart failure) Qualifiers: Heart failure type: unspecified Heart failure chronicity: acute on chronic Qualified Code(s): I50.9 - Heart failure, unspecified Chest pain Qualifiers: Chest pain type: precordial pain Qualified Code(s): R07.2 - Precordial pain
[2019-05-25 07:09] LABS: Basophils # (auto) 0.02 K/uL (0-0.2); Basophils % (auto) 0.2 %; Eosinophils # (auto) 0.07 K/uL (0-0.5); Eosinophils % (auto) 0.7 %; Hemoglobin 13.6 g/dL (14.0-18.0); Immature Granulocytes # (auto) 0.03 K/uL (0.00-0.02); Immature Granulocytes % (auto) 0.3 %; Lymphocytes # (auto) 1.75 K/uL (1.2-3.4); Lymphocytes % (auto) 16.9 %; Mean Corpuscular Hemoglobin 27.8 pg (25-34); Mean Corpuscular Hgb Conc 33.2 g/dL (32-36); Mean Corpuscular Volume 83.8 fL (80-100); Monocytes # (auto) 0.56 K/uL (0.11-0.59); Monocytes % (auto) 5.4 %; Neutrophils # (auto) 7.92 K/uL (1.4-6.5); Neutrophils % (auto) 76.5 %; Platelet Count 188 K/uL (130-400); RDW Coefficient of Variation 15.4 % (11.5-14.5); RDW Standard Deviation 47.2 fL (36.4-46.3); Red Blood Count 4.89 M/uL (4.7-6.1); White Blood Count 10.35 K/uL (4.8-10.8)
[2019-05-25 07:24] LABS: Partial Thromboplastin Ratio 1.1; Partial Thromboplastin Time 29.4 Seconds (21.0-31.0); Prothrombin Time 10.8 Seconds (9.0-12.0)
[2019-05-25 07:29] LABS: Albumin Level 3.1 gm/dl (3.4-5.0); BUN Creatinine Ratio 19.4 (10-20); Calcium 8.7 mg/dl (8.5-10.1); Creatinine Clr Calc Pharmacy 146.4 ml/min; Est GFR (African American) 111.1; Est GFR (Non-African American) 95.9; Magnesium 1.8 mg/dl (1.8-2.4)
[2019-05-25 07:33] LABS: Albumin Globulin Ratio 0.8 (0.9-2); Bilirubin,Total 0.6 mg/dl (0.2-1); Total Protein 7.1 gm/dl (6.4-8.2); Troponin I 0.032 ng/ml (0-0.045)
[2019-05-25] MEDS ORDERED: NITROGLYCERIN 2% OINTMENT 30GM TUBE EXT ONE (07:41)
[2019-05-25] MEDS ORDERED: BUMETANIDE 1 MG in SYRINGE 0 ML IV SCH (07:45)
--- NOTE | 2019-05-25 07:52 | XRay Report ---
XR chest 1V portable CLINICAL HISTORY: SEPSIS COMPARISON STUDY: 05/06/2019 FINDINGS: The heart remains enlarged. There is a left subclavian single chamber central venous pacema ker. There is worsening congestive failure with basilar airspace opacities likely representing pulmon mirza edema.[A superimposed infectious/inflammatory process while not likely cannot be excluded IMPRESSION: Worsening congestive heart failure/pulmonary edema pattern. Developing basilar airspace o pacities, likely representing pulmonary edema although a superimposed infectious/inflammatory process cannot be excluded ACT 112: Negative or not required by law. Electronically signed by: Garrett Muniz M.D. 05/25/2019 7:50 AM
--- NOTE | 2019-05-25 08:53 | History & Physical Report ---
Date of Service May 25, 2019 Assessment & Plan (1) CHF (congestive heart failure): Acute on chronic systolic heart failure/HFrEF/NICM with most recent EF on 04/08 of 25-30% Patient is currently in flash pulmonary edema. Received IV bumex 1 mg Will order an additional 40 mg of Lasix and continue IV q8h. Patient was recently admitted and discharged for the same reason just 1 week ago. Patient repeateledly appears to show that he does not comprehend his condition. Explained how severe this is given his severe cardiomyopathy. There is question that patient is not fully compliant. Patient will be on fluid restriction. Continue aspirin 81 mg daily, hold for now: metoprolol succinate, and Entresto Follow BMP and magnesium levels every morning. Update: Code purple. Gave an additional 80 mg of lasix. repeat x ray which continued to show congestion. Also ordered IV metoprolol 5 mg . Update 2: Patient appears less in distress and BP is better controlled. NICM (nonischemic cardiomyopathy): See above Status post internal cardiac defibrillator procedure: Placed on 04/08/2019. He feels that his defibrillator fired. Noncompliance with medication regimen: This is the patient's fifth admission this calendar year: Previous admissions: 02/19-02/21, 03/20-03/22, and 03/31-04/04, and 2 recent hospital stays in the past month. If he is not in the heart failure program, he needs to follow in the heart failure program to prevent/reduce further admissions He fired [facility]. Now follows up with Hilda. DVT prophylaxis: heparin Full code (2) Sinus tachycardia: Likely from acute problem. (3) SOB (shortness of breath): secondary to primary problem. (4) Obstructive sleep apnea: (5) Combined systolic and diastolic heart failure: as stated above. (6) Diabetes mellitus with diabetic polyneuropathy: Hold Humalog mix 50/50, 40 units subcu daily and Trulicity. Placed on Accu-Cheks before meals and at bedtime with NovoLog coverage per scale. Present on Admission?: Yes (7) Hypertension: BP is elevated. will see how he responds to the diuretics. May need additional IV diuretic overnight if BP does not improve. (8) Morbid obesity: recommend weight loss. (9) Dyslipidemia: LDL at goal in February. Not on statin. (10) Hypertensive urgency, malignant: as stated above, likely secondary to fluid overload. Receiving IV lasix. Resuming oral dose of metorpolol succinate 200 mg once daily. will also give aditional dose of metoprolol iV (11) Cough with hemoptysis: Patient states that this is a new problem. However this has been ongoing for over a year. He had a bronchoscopy but Dr. Houston about 1 year ago. And it was negative. His anticoagulation was held but he still has streaks of blood when he coughs. He is scheduled to see pulmonary as an outpatient. Will monitor. Currently this is not the main issue. Given how patient is not anemic and is now in acute systolic and diastolic heart failure. History of Present Illness e Chief Complaint: SOB Primary Care Provider: CM Vargas, MS, [facility] The patient is a 43-year-old male with a past medical history including hypertension, nonproliferative retinopathy due to diabetes, AICD, syncope, nonischemic cardiomyopathy, hypertensive urgency, acute on chronic heart failure/HFrEF, dilation of thoracic aorta, hypertension, pulmonary edema, nonsustained V. tach, hypertensive urgency, iliac artery aneurysm, morbid obesity, peripheral neuropathy, hemoptysis, GERD and COPD. He has been coming to the hospital repeatedly with CHF exacrbation and hypertensive urgency. Patient also has been having episodes of recurrent hemoptysis dating over year in which he had a bronchoscopy done by Dr. Houston which was negative. Patient is a poor historian and once he is in the hospital has brisk diuresis and improves. Patient feels that his main problem is his hemoptysis. He states he is compliant with his diet and medications at home. Allergies Allergy/AdvReac Type Severity Reaction Status Date / Time ceftriaxone Allergy Severe SHORTNESS Verified 05/25/19 08:14 OF BREATH lidocaine Allergy Severe SHORTNESS Verified 05/25/19 08:14 OF BREATH, diaphoretic, hives procaine Allergy Severe SHORTNESS Verified 05/25/19 08:14 OF BREATH, diaphoretic, hives amoxicillin Allergy Intermediate HIVES/FACIAL Verified 05/25/19 08:14 SWELLING clavulanic acid Allergy Intermediate HIVES/FACIAL Verified 05/25/19 08:14 SWELLING lisinopril Allergy Intermediate HIVES Verified 05/25/19 08:14 acetaminophen AdvReac Mild NAUSEA Verified 05/25/19 08:14 albuterol AdvReac Mild proair Verified 05/25/19 08:14 "trouble taking breaths" Home Medications Home Medications Medication Instructions Recorded Confirmed Type esomeprazole magnesium 20 mg 20 mg PO BID cap 09/05/18 05/25/19 History capsule,delayed release aspirin 81 mg tablet,delayed 81 mg PO QAM 09/17/18 05/25/19 History release cholecalciferol (vitamin D3) 25 2,000 units PO BID cap 09/17/18 05/25/19 History mcg (1,000 unit) capsule DoppelgangerTouch Delica Plus Lancet 30 #400 ea NS 12/23/18 05/05/19 Rx gauge OneTouch Verio #400 ea NS 12/23/18 05/05/19 Rx potassium chloride 20 mEq 20 meq PO BID 02/25/19 05/25/19 History tablet,extended release albuterol sulfate 90 mcg/actuation 1 puffs INH QID #18 gm 03/26/19 05/25/19 Rx aerosol inhaler sacubitril 97 mg-valsartan 103 mg 1 tab PO BID tab 04/10/19 05/25/19 History tablet Trulicity 1.5 mg SQ WE 04/24/19 05/25/19 History nitroglycerin [Nitrostat] 0.4 mg SUBLINGUAL UD PRN 04/24/19 05/25/19 History ondansetron 4 mg PO Q8H PRN #30 tab 04/24/19 05/25/19 Rx metolazone 5 mg PO MOTH 04/29/19 05/25/19 History bumetanide 2 mg PO BID 30 Days #60 tab 04/30/19 05/25/19 Rx metoprolol succinate [Toprol XL] 200 mg PO DAILY #0 tab 05/07/19 05/25/19 Rx spironolactone 25 mg PO QAM #30 tab 05/07/19 05/25/19 Rx torsemide 80 mg PO BID 30 Days #240 tab 05/07/19 05/25/19 Rx Oxygen Home #1 ea 05/19/19 05/19/19 Rx doxycycline hyclate 100 mg capsule 100 mg PO BID #20 cap 05/22/19 05/25/19 Rx fluticasone 250 mcg-salmeterol 50 1 puffs INH BID #60 ea 05/23/19 05/25/19 Rx mcg/dose blistr powdr for inhalation Past Med/Surg History Medical History Acquired claw toe of left foot (Acute) Acquired claw toe of right foot (Acute) CHF exacerbation (Inactive) Cognitive impairment Depression with anxiety (Inactive) Dilatation of thoracic aorta (Inactive) Fatty liver Hypomagnesemia (Inactive) Hypoxia (Inactive) Iliac aneurysm (Inactive) Learning disability (Resolved) Left-sided weakness Lung nodule (Inactive) NICM (nonischemic cardiomyopathy) Pt admitted for elective ICD. Underwent procedure without any complications monitored over night and discharged home. Noncompliance with medication regimen Pulmonary edema (Inactive) Umbilical hernia (Inactive) Vitamin D insufficiency Previously deficient, taking Vit D supplementation Volume overload (Inactive) Surgical History History of carpal tunnel surgery History of cholecystectomy S/P tonsillectomy Family History Father , age 57 of an [place]. Heart disease Myocardial infarction Mother , age 67 of a ruptured neck vessel Sudden Other Depression Lung disease No pertinent family history Denies family history of Ovarian cancer Prostate cancer Breast cancer Colorectal cancer Social History Preferred Language: Pashto Communication Ability: Effective Visual Impairment: No Limitations Hearing Ability: Normal Guide Setter Required: No Beliefs That Will Affect Care: None marital status: Current Living Situation: Spouse current occupational status: unemployed Feels Safe at Home: Yes Safety Concerns: Feels Safe At This Time Smoking Status: Former smoker Tobacco Type: cigarettes ; Age Started Using Tobacco: 14 ; Age Quit Using Tobacco: 18 ; Cigarettes Per Day: 40-50 ; Second Hand Exposure: No ; Hx Alcohol Use: Yes Alcohol type: beer and hard liquor Alcohol Intake Frequen cy: Rarely Hx Substance Use: No Childhood Exposure to Second-Hand Smoke: Yes Dental Care, Regularly: Yes Physical Activity Frequency: Does not Exercise Review of Systems Constitutional: + fatigue and + weakness; no fever, no sweats and no body aches Eyes: no blind spots and no discharge Ear, Nose, Mouth, Throat: no ear pain and no tinnitus Respiratory: + cough, + change in sputum, + dyspnea and + hemoptysis Cardiovascular: + dyspnea at rest and + dyspnea on exertion; no chest pain and no chest pain with activity Gastrointestinal: no abdominal pain, no early satiety and no vomiting Genitourinary: no dysuria Musculoskeletal: no back pain and no loss of height Integumentary: no acne Neurologic: no gait abnormality Psychiatric: no behavioral changes Endocrine: no fatigue Hematologic / Lymphatic: no easy bleeding Allergy / Immunological: no lip swelling Physical Exam Physical Exam: Constitutional: vitals as above well developed and well nourished, DIAPHORETIC, in moderate distress Eyes: PERRL, conjunctivae normal, anicteric sclerae ENMT: external ear and nose normal, oropharynx normal Neck: trachea midline, no thyromegaly Respiratory: + uses accessory muscles , crackles and wheezing heard in middle to lower third of lung obrien. Cardiovascular: Rate/Rhythm: regular rate Heart Sounds: normal S1 and normal S2 Vessels: no JVD (difficult to assess due to body habitus) Gastrointestinal (Abdomen): normal bowel sounds, soft, nontender, no hepatosplenomegaly Musculoskeletal: No cyanosis or clubbing, extremities motor strength 5/5 Skin: no rashes, warm and dry Neurologic: PERRL, EOMI, accommodation nl, no face palsy, no dysarthria Psychiatric: A+Ox3, euthymic affect Lymphatic: no cervical or axillary lymphadenopathy Results & Data Results & Data ([facility]) Vital Signs (Past 12 Hours) Vital Signs Temp Pulse Pulse Resp BP BP Pulse Ox 05/25/19 07:37 112 H 112 H 28 H 218/140 H 96 05/25/19 06:46 90 05/25/19 06:30 37.0 C 121 H 24 174/132 H 93 PG Care Time/CCT Total # of Minutes Spent Total Time Spent with Patient: Total time spent is greater than 50% in coordination of care (as documented) at patient's floor/unit and/or counseling patient: Coding Level of Care Code 57703 OBS Care - Level 3 Diagnoses CHF (congestive heart failure) I50.9 Heart failure chronicity: acute on chronic Heart failure type: unspecified Sinus tachycardia R00.0 SOB (shortness of breath) R06.02 Obstructive sleep apnea G47.33 Combined systolic and diastolic heart failure I50.41 Heart failure chronicity: acute Diabetes mellitus with diabetic polyneuropathy E11.42 Hypertension I10 Morbid obesity E66.01 Dyslipidemia E78.5 Hypertensive urgency, malignant I16.0 Cough with hemoptysis R04.2 (1) CHF (congestive heart failure) Heart failure chronicity: acute on chronic Heart failure type: unspecified Qualified Code(s): I50.9 - Heart failure, unspecified (2) Combined systolic and diastolic heart failure Heart failure chronicity: acute Qualified Code(s): I50.41 - Acute combined systolic (congestive) and diastolic (congestive) heart failure
[2019-05-25 09:32] LABS: Appearance Urine Clear (Clear); Bacteria Urine Automated Negative (Negative); Bilirubin Urine Negative (Negative); Blood Urine Negative (Negative); Color Urine Yellow; Glucose Urine UA Negative (Negative); Ketones Urine Negative (Negative); Leukocyte Esterase Urine Negative (Negative); Nitrite Urine Negative (Negative); Protein Urine Trace (Negative); RBC Urine Automated 0-4 /hpf (0-4); Specific Gravity Urine 1.015 (1.000-1.030); Urobilinogen Urine Negative (Negative); WBC Urine Automated 0 /hpf (0-5)
--- NOTE | 2019-05-25 10:15 | Electrocardiogram Report ---
Test Reason : Blood Pressure : / mmHG Vent. Rate : 125 BPM Atrial Rate : 125 BPM P-R Int : 148 ms QRS Dur : 104 ms QT Int : 336 ms P-R-T Axes : 040 -03 089 degrees QTc Int : 484 ms Poor data quality, interpretation may be adversely affected Sinus tachycardia Left atrial enlargement Nonspecific ST and T wave abnormality Lateral leads Borderline ECG When compared with ECG of 05-MAY-2019 21:31, HR has increased by 26 bpm Otherwise no significant change Confirmed by Martell Flores ([id number]) on 05/25/2019 10:15:01 AM Referred By: REFERRED SELF Confirmed By:Martell Flores
[2019-05-25] MEDS ORDERED: FUROSEMIDE 40 MG/4 ML VIAL IV SCH (10:17)
[2019-05-25] MEDS ORDERED: ONDANSETRON 4 MG OD TAB PO PRN (10:23)
[2019-05-25] MEDS ORDERED: CARBOHYDRATES FOR HYPOGLYCEMIA PO PRN (10:45)
[2019-05-25] MEDS ORDERED: GLUCAGON FOR INJ 1 MG VIAL IM PRN (10:45)
[2019-05-25] MEDS ORDERED: DEXTROSE 50% 50 ML SYRINGE IV PRN (10:45)
[2019-05-25] MEDS ORDERED: GLUCOSE 40% GEL 15 GM TUBE PO PRN (10:45)
[2019-05-25] MEDS ORDERED: GLUCOSE 10 TABS/TUBE PO PRN (10:45)
[2019-05-25] MEDS: METOPROLOL SUCC 50MG EXT REL TAB PO SCH (10:55)
[2019-05-25] MEDS: POTASSIUM CHLORIDE 20 MEQ TABCR PO SCH ×2 (10:55→19:47)
[2019-05-25] MEDS: ASPIRIN 81 MG ECTAB PO SCH (10:55)
[2019-05-25] MEDS ORDERED: METOPROLOL TARTRATE 1 MG/ML VIAL IV STA (12:13)
[2019-05-25] MEDS: FUROSEMIDE 40 MG in SYRINGE 0 ML IV SCH ×2 (12:15→20:36)
[2019-05-25] MEDS ORDERED: FUROSEMIDE 40 MG in SYRINGE 0 ML IV ONE (12:30)
[2019-05-25] MEDS: INSULIN ASPART 100 UNITS/ML 3 ML PEN SC SCH ×3 (12:30→20:34)
--- NOTE | 2019-05-25 12:33 | XRay Report ---
XR chest 1V portable CLINICAL HISTORY: Shortness of breath COMPARISON STUDY: 05/25/2019 FINDINGS: The heart remains enlarged. There is continued radiographic evidence of 8 pulmonary edema p attern with more focal basilar airspace opacities. A likely representing focal edema, a superimposed infectious/inflammatory process cannot be excluded. There is a left subclavian single chamber central venous pacemaker.[ IMPRESSION: 1. Persistent pulmonary edema pattern with persistent basilar airspace opacities, likely representing pulmonary edema although a superimposed infectious/inflammatory processes could appear similar ACT 112: Negative or not required by law. Electronically signed by: Garrett Muniz M.D. 05/25/2019 12:32 PM
[2019-05-25 12:57] LABS: BUN Creatinine Ratio 14.3 (10-20); Calcium 8.5 mg/dl (8.5-10.1); Est GFR (African American) 99.8; Est GFR (Non-African American) 86.1
[2019-05-25 13:01] LABS: Troponin I 0.035 ng/ml (0-0.045)
[2019-05-25] MEDS: HEPARIN SOD 5,000 UNIT/0.5 ML VIAL SQ SCH ×2 (15:15→19:48)
[2019-05-25] MEDS: PANTOprazole 40 MG TAB PO SCH (19:47)
[2019-05-26] MEDS: HEPARIN SOD 5,000 UNIT/0.5 ML VIAL SQ SCH ×3 (05:26→21:28)
[2019-05-26] MEDS: FUROSEMIDE 40 MG in SYRINGE 0 ML IV SCH ×3 (05:26→21:28)
[2019-05-26] MEDS: ASPIRIN 81 MG ECTAB PO SCH (08:24)
[2019-05-26] MEDS: METOPROLOL SUCC 50MG EXT REL TAB PO SCH (08:24)
[2019-05-26] MEDS: INSULIN ASPART 100 UNITS/ML 3 ML PEN SC SCH ×4 (08:24→20:46)
[2019-05-26] MEDS: FLUTICASONE/VILANTEROL 200/25MCG 14 PUFFS/INHALER INH SCH (08:25)
[2019-05-26] MEDS: POTASSIUM CHLORIDE 20 MEQ TABCR PO SCH ×2 (08:25→21:28)
[2019-05-26] MEDS: PANTOprazole 40 MG TAB PO SCH ×2 (08:25→21:28)
[2019-05-26] MEDS ORDERED: metOLazone 5 MG TABLET PO SCH (09:00)
--- NOTE | 2019-05-26 09:07 | Cardiology Consultation ---
Date of Consultation May 26, 2019 Assessment & Plan (1) CHF (congestive heart failure): (2) SOB (shortness of breath): (3) Cardiac defibrillator in place: (4) Diabetes mellitus with diabetic polyneuropathy: (5) Cough with hemoptysis: (6) Hypertensive urgency, malignant: (7) Medical non-compliance: This patient has a nonischemic cardiomyopathy with severe LV dysfunction. He has had multiple hospital admissions most likely due to medical noncompliance or inability to understand his disease process or medications. He seems to have improved overnight after being placed back on his medications and given IV diuretics. He has been complaining of some chest discomfort when he coughs and states that there may be a little bit of blood which could be related to congestive heart failure pulmonary edema. No cardiac testing at this time. History of Present Illness Attending Physician: Trey Menendez, History of Present Illness This is a 43-year-old male patient who has had multiple hospital admissions recently. The patient is mentally challenged and has a history of a nonischemic cardiomyopathy with severe LV dysfunction. He has a history of medical noncompliance possibly on the basis of his cognitive inabilities. He was just discharged from the hospital last week. He really presents with pulmonary edema which is rapidly improved after the start of his home medications and diuretics. Past medical history: 1.Chronic combined systolic and diastolic heart failure, nonischemic cardiomyopathy, most recent ejection fraction the range of 25-30% on echocardiogram At [facility] Mar 2019. 2.Patient reported episodes of syncope. No arrhythmias on monitor. No shocks. 3.S/P single chamber ICD implantation on 04/08/19 - appropriate function per mu ltiple transmissions 4.Hypertension - uncontrolled 5.Medication non compliance 6.Nonsustained ventricular tachycardia 7.MARIELENA 8.Obesity 9.DM Allergies Allergy/AdvReac Type Severity Reaction Status Date / Time ceftriaxone Allergy Severe SHORTNESS Verified 05/25/19 08:14 OF BREATH lidocaine Allergy Severe SHORTNESS Verified 05/25/19 08:14 OF BREATH, diaphoretic, hives procaine Allergy Severe SHORTNESS Verified 05/25/19 08:14 OF BREATH, diaphoretic, hives amoxicillin Allergy Intermediate HIVES/FACIAL Verified 05/25/19 08:14 SWELLING clavulanic acid Allergy Intermediate HIVES/FACIAL Verified 05/25/19 08:14 SWELLING lisinopril Allergy Intermediate HIVES Verified 05/25/19 08:14 acetaminophen AdvReac Mild NAUSEA Verified 05/25/19 08:14 albuterol AdvReac Mild proair Verified 05/25/19 08:14 "trouble taking breaths" Home Medications Home Medications Medication Instructions Recorded Confirmed Type esomeprazole magnesium 20 mg 20 mg PO BID cap 09/05/18 05/25/19 History capsule,delayed release aspirin 81 mg tablet,delayed 81 mg PO QAM 09/17/18 05/25/19 History release cholecalciferol (vitamin D3) 25 2,000 units PO BID cap 09/17/18 05/25/19 History mcg (1,000 unit) capsule OneTouch Delica Plus Lancet 30 #400 ea NS 12/23/18 05/05/19 Rx gauge OneTouch Verio #400 ea NS 12/23/18 05/05/19 Rx potassium chloride 20 mEq 20 meq PO BID 02/25/19 05/25/19 History tablet,extended release albuterol sulfate 90 mcg/actuation 1 puffs INH QID #18 gm 03/26/19 05/25/19 Rx aerosol inhaler sacubitril 97 mg-valsartan 103 mg 1 tab PO BID tab 04/10/19 05/25/19 History tablet Trulicity 1.5 mg SQ WE 04/24/19 05/25/19 History nitroglycerin [Nitrostat] 0.4 mg SUBLINGUAL UD PRN 04/24/19 05/25/19 History ondansetron 4 mg PO Q8H PRN #30 tab 04/24/19 05/25/19 Rx metolazone 5 mg PO MOTH 04/29/19 05/25/19 History bumetanide 2 mg PO BID 30 Days #60 tab 04/30/19 05/25/19 Rx metoprolol succinate [Toprol XL] 200 mg PO DAILY #0 tab 05/07/19 05/25/19 Rx spironolactone 25 mg PO QAM #30 tab 05/07/19 05/25/19 Rx torsemide 80 mg PO BID 30 Days #240 tab 05/07/19 05/25/19 Rx Oxygen Home #1 ea 05/19/19 05/19/19 Rx doxycycline hyclate 100 mg capsule 100 mg PO BID #20 cap 05/22/19 05/25/19 Rx fluticasone 250 mcg-salmeterol 50 1 puffs INH BID #60 ea 05/23/19 05/25/19 Rx mcg/dose blistr powdr for inhalation Patient History Medical History Acquired claw toe of left foot (Acute) Acquired claw toe of right foot (Acute) CHF exacerbation (Inactive) Cognitive impairment Depression with anxiety (Inactive) Dilatation of thoracic aorta (Inactive) Fatty liver Hypomagnesemia (Inactive) Hypoxia (Inactive) Iliac aneurysm (Inactive) Learning disability (Resolved) Left-sided weakness Lung nodule (Inactive) NICM (nonischemic cardiomyopathy) Pt admitted for elective ICD. Underwent procedure without any complications monitored over night and discharged home. Noncompliance with medication regimen Pulmonary edema (Inactive) Umbilical hernia (Inactive) Vitamin D insufficiency Previously deficient, taking Vit D supplementation Volume overload (Inactive) Surgical History History of carpal tunnel surgery History of cholecystectomy S/P tonsillectomy Family History Father , age 57 of an [place]. Heart disease Myocardial infarction Mother , age 67 of a ruptured neck vessel Sudden Other Depression Lung disease No pertinent family history Denies family history of Ovarian cancer Prostate cancer Breast cancer Colorectal cancer Social History Preferred Language: Chadian Communication Ability: Effective Visual Impairment: No Limitations Hearing Ability: Normal Resource Agent Required: No Beliefs That Will Affect Care: None marital status: Current Living Situation: Spouse current occupational status: unemployed Feels Safe at Home: Yes Safety Concerns: Feels Safe At This Time Smoking Status: Former smoker Tobacco Type: cigarettes ; Age Started Using Tobacco: 14 ; Age Quit Using Tobacco: 18 ; Cigarettes Per Day: 40-50 ; Second Hand Exposure: No ; Hx Alcohol Use: Yes Alcohol type: beer and hard liquor Alcohol Intake Frequency: Rarely Hx Substance Use: No Childhood Exposure to Second-Hand Smoke: Yes Dental Care, Regularly: Yes Physical Activity Frequency: Does not Exercise Review of Systems Review of Systems: All systems reviewed & are unremarkable except as noted in HPI & below Nothing additional to add. Physical Exam Physical Exam: General: no acute distress and stated age Head: normocephalic, no masses, lesions, tenderness or abnormalities Eyes: conjunctiva are pink and non-injected, sclera clear Neck: supple, no adenopathy, no bruits, normal jugular venous pulse, no hepatojugular reflux Chest: normal shape and normal respiratory effort Lungs: clear to auscultation and percussion Cardiac Exam: - regular rate & rhythm, no murmurs gallops or rubs - normal S1, normal S2 Pulses: 2(+) throughout Abdomen: abdomen soft, non-tender, no abnormal masses and no hepatosplenomegaly Musculoskeletal: no gait disturbance, no joint inflammation, no deforming arthritis Extremities: no edema and no cyanosis Neuro: grossly normal exam Results & Data ([facility]) Vital Signs (Past 12 Hours) Vital Signs Temp Pulse Pulse Resp BP BP Pulse Ox 05/26/19 07:23 86 05/26/19 07:12 36.5 C 89 18 132/88 96 05/26/19 03:52 37.0 C 92 H 22 154/109 H 95 05/25/19 23:59 91 H 05/25/19 23:12 36.7 C 89 21 144/106 H 98 Laboratory Results Laboratory Results - last 24 hr 05/25/19 05/25/19 05/25/19 11:12 12:26 16:18 Sodium 137 Potassium 4.0 Chloride 107 Carbon Dioxide 24 Anion Gap 6.0 BUN 15 Creatinine 1.06 Est Cr Clr Drug Dosing 134.0 Est GFR ( Amer) 99.8 Est GFR (Non-Af Amer) 86.1 BUN/Creatinine Ratio 14.3 Glucose 162 H POC Glucose 126 H 177 H Calcium 8.5 Troponin I 0.035 05/25/19 05/26/19 20:27 07:16 Sodium Potassium Chloride Carbon Dioxide Anion Gap BUN Creatinine Est Cr Clr Drug Dosing Est GFR ( Amer) Est GFR (Non-Af Amer) BUN/Creatinine Ratio Glucose POC Glucose 172 H 147 H Calcium Troponin I Medications Administered Current Inpatient Medications Aspirin (Ecotrin Ectab) 81 mg PO QAM [facility] Stop: 06/24/19 11:59 Last Admin: 05/26/19 08:24 Dose: 81 mg Documented by: Dextrose (Dextrose 50%) 25 - 50 ml IV UD PRN; Protocol PRN Reason: Hypoglycemia Protocol Stop: 06/24/19 10:44 Fluticasone/Vilanterol (Breo Ellipta 200/25 Mcg Inh) 1 puffs INH DAILY [facility] Stop: 06/25/19 08:59 Last Admin: 05/26/19 08:25 Dose: Not Given Documented by: Glucagon (Glucagen) 1 mg IM UD PRN; Protocol PRN Reason: Hypoglycemia Protocol Stop: 06/24/19 10:44 Glucose (Glucose 40%) 15 - 30 gm PO UD PRN; Protocol PRN Reason: Hypoglycemia Protocol Stop: 06/24/19 10:44 Glucose (Dex4 Glucose) 4 - 8 tabs PO UD PRN; Protocol PRN Reason: Hypoglycemia Protocol Stop: 06/24/19 10:44 Heparin Sodium (Porcine) (Heparin Sodium (Porcine)) 5,000 units SQ Q8 [facility] Stop: 06/24/19 13:59 Last Admin: 05/26/19 05:26 Dose: Not Given Documented by: Furosemide 40 mg/ Syringe 4 mls @ 4 mls/min IV Q8 [facility] Stop: 06/24/19 13:59 Last Admin: 05/26/19 05:26 Dose: 4 mls/min Documented by: Insulin Aspart (Novolog Flexpen) 0 units SC ACHS [facility] Stop: 06/24/19 11:29 Last Admin: 05/26/19 08:24 Dose: 10 units Documented by: Metolazone (Zaroxolyn) 5 mg PO MoTh@0900 [facility] Stop: 06/25/19 08:59 Last Admin: 05/26/19 08:25 Dose: 5 mg Documented by: Metoprolol Succinate (Toprol Xl) 200 mg PO DAILY [facility] Stop: 06/24/19 10:59 Last Admin: 05/26/19 08:24 Dose: 200 mg Documented by: Miscellaneous (Carbohydrates For Hypoglycemia) 15 - 30 gm PO UD PRN PRN Reason: Hypoglycemia Treatment Stop: 06/24/19 10:44 Nitroglycerin (Nitrostat) 0.4 mg SL UD PRN PRN Reason: Chest Pain Stop: 06/24/19 10:16 Last Admin: 05/26/19 10:09 Dose: 0.4 mg Documented by: Ondansetron HCl (Zofran Odt) 4 mg PO Q8H PRN PRN Reason: NAUSEA/VOMITING Stop: 06/24/19 10:22 Pantoprazole Sodium (Protonix) 40 mg PO BID [facility] Stop: 06/24/19 20:59 Last Admin: 05/26/19 08:25 Dose: 40 mg Documented by: Potassium Chloride (Klor-Con M20) 20 meq PO BID [facility] Stop: 06/24/19 10:59 Last Admin: 05/26/19 08:25 Dose: 20 meq Documented by: (1) CHF (congestive heart failure) Heart failure chronicity: acute on chronic Heart failure type: unspecified Qualified Code(s): I50.9 - Heart failure, unspecified
[2019-05-26] MEDS: NITROGLYCERIN SL 0.4 MG/TAB TAB SL PRN ×2 (10:09→10:27)
--- NOTE | 2019-05-26 15:43 | Hospitalist Progress Note ---
Date of Service May 26, 2019 Assessment & Plan (1) CHF (congestive heart failure): Acute on chronic systolic heart failure/HFrEF/NICM with most recent EF on 04/08 of 25-30% continue Lasix 40mg IV q8 excellent response as always, he is 4.5 liters negative, still making a lot of urine this afternoon. Patient was recently admitted and discharged for the same reason just 1 week ago. he has limited to no understanding of his condition is not weighing himself at home, he does not follow fluid or salt restriction Continue aspirin 81 mg daily, resume Metoprolol and Entresto anticipate d/c to home in 1-2 days, his typical stay in the hospital NICM (nonischemic cardiomyopathy): See above Status post internal cardiac defibrillator procedure: Placed on 04/08/2019. He feels that his defibrillator fired. Noncompliance with medication regimen: This is the patient's fifth admission this calendar year: Previous admissions: 02/19-02/21, 03/20-03/22, and 03/31-04/04, and 2 recent hospital stays in the past month. If he is not in the heart failure program, he needs to follow in the heart failure program to prevent/reduce further admissions He fired [facility]F clinic. Now follows up with H[facility]. DVT prophylaxis: heparin Full code (2) Chest pain: occurred once this morning, relieved with nitro EKG with some changes in lateral leads, TW inversions on admission he also had lateral lead changes repeated EKG later in the afternoon, no chest pain at that time, EKG looked similar checked a troponin, it was < 0.015 cardiology aware, no further work up planned at this time (3) Sinus tachycardia: HR in the 80's today, likely from dyspnea and anxiety (4) SOB (shortness of breath): secondary to primary problem. (5) Obstructive sleep apnea: (6) Combined systolic and diastolic heart failure: as stated above. (7) Diabetes mellitus with diabetic polyneuropathy: Hold Humalog mix 50/50, 40 units subcu daily and Trulicity. Placed on Accu-Cheks before meals and at bedtime with NovoLog coverage per scale. monitor for hypoglycemia, no episodes do not anticipate and changes on discharge (8) Hypertension: BP well controlled today after diuresis (9) Morbid obesity: recommend weight loss. (10) Dyslipidemia: LDL at goal in February. Not on statin. (11) Hypertensive urgency, malignant: as stated above, likely secondary to fluid overload. Receiving IV lasix. Resuming oral dose of metorpolol succinate 200 mg once daily. BP better today (12) Cough with hemoptysis: Patient states that this is a new problem. However this has been ongoing for over a year. He had a bronchoscopy but Dr. Houston about 1 year ago. And it was negative. His anticoagulation was held but he still has streaks of blood when he coughs. He is scheduled to see pulmonary as an outpatient. could be due to flash pulmonary edema Will monitor. Admission and Anticipated Discharge Date Admission Date: May 26, 2019 Subjective patient feeling better, breathing easier making a lot of urine, negative 4.5 liters since admission d/w CM, will make full admission as he will be here two midnights patient frustrated because we won't allow him to drink as much as he does at home he says he drinks 18 oz of water three times a day plus, he drinks soda, but says he only drinks half a can and gives the other half to his he says his scale does not work because his phone won't connect to the [employer] feature explained that he could still get a normal scale and write down the weights, he is not wiling to do this discussed with cardiology, they simply recommend to continue with diuresis no labs today, will check tomorrow pt c/o chest pain mid morning, there was some TW inversions in later leads will repeat troponin and labs this afternoon and EKG chest pain resolved with nitro Review of Systems Review of Systems: All systems reviewed & are unremarkable except as noted in HPI & below Constitutional: + fatigue and + weakness; no fever, no chills and no sweats Respiratory: no cough, no dyspnea and no wheezing Cardiovascular: + chest pain and + edema Gastrointestinal: no abdominal pain, no nausea, no vomiting, no constipation and no diarrhea/loose stools Physical Exam Constitutional: WD/WN, vitals as above + morbidly obese; no acute distress Eyes: PERRL, conjunctivae normal, anicteric sclerae ENMT: external ear and nose normal, oropharynx normal Neck: trachea midline, no thyromegaly Respiratory: normal respiratory effort, lungs clear to auscultation Cardiovascular: RRR, no murmur, no edema Gastrointestinal (Abdomen): normal bowel sounds, soft, nontender, no hepatosplenomegaly Musculoskeletal: no cyanosis or clubbing, extremities motor strength 5/5 Skin: no rashes, warm and dry Neurologic: patellar DTR's 2+ bilat, sensation intact and PERRL, EOMI, accommodation nl, no face palsy, no dysarthria Psychiatric: A+Ox3, euthymic affect Estimated Intelligence: + below average estimated intelligence Lymphatic: no cervical or axillary lymphadenopathy Results & Data Results & Data ([facility]) Vital Signs (Past 12 Hours) Vital Signs Temp Pulse Pulse Resp BP BP Pulse Ox 05/26/19 11:51 36.3 C L 86 20 135/101 H 98 05/26/19 10:27 86 149/110 H 05/26/19 10:07 85 153/102 H 05/26/19 07:23 86 05/26/19 07:12 36.5 C 89 18 132/88 96 05/26/19 03:52 37.0 C 92 H 22 154/109 H 95 Laboratory Results Laboratory Results - last 24 hr 05/25/19 05/26/19 05/26/19 20:27 07:16 11:30 Sodium Potassium Chloride Carbon Dioxide Anion Gap BUN Creatinine Est Cr Clr Drug Dosing Est GFR ( Amer) Est GFR (Non-Af Amer) BUN/Creatinine Ratio Glucose POC Glucose 172 H 147 H 243 H Calcium Troponin I Specimen Hemolysis 05/26/19 05/26/19 16:23 16:24 Sodium 138 Potassium 4.1 Chloride 104 Carbon Dioxide 27 Anion Gap 6.0 BUN 21 H Creatinine 1.20 Est Cr Clr Drug Dosing 116.3 Est GFR ( Amer) 85.9 Est GFR (Non-Af Amer) 74.1 BUN/Creatinine Ratio 17.4 Glucose 103 H POC Glucose 112 H Calcium 8.8 Troponin I < 0.015 Specimen Hemolysis Medications Administered Current Inpatient Medications Aspirin (Ecotrin Ectab) 81 mg PO QAM [facility] Stop: 06/24/19 11:59 Last Admin: 05/26/19 08:24 Dose: 81 mg Documented by: Dextrose (Dextrose 50%) 25 - 50 ml IV UD PRN; Protocol PRN Reason: Hypoglycemia Protocol Stop: 06/24/19 10:44 Fluticasone/Vilanterol (Breo Ellipta 200/25 Mcg Inh) 1 puffs INH DAILY [facility] Stop: 06/25/19 08:59 Last Admin: 05/26/19 08:25 Dose: Not Given Documented by: Glucagon (Glucagen) 1 mg IM UD PRN; Protocol PRN Reason: Hypoglycemia Protocol Stop: 06/24/19 10:44 Glucose (Glucose 40%) 15 - 30 gm PO UD PRN; Protocol PRN Reason: Hypoglycemia Protocol Stop: 06/24/19 10:44 Glucose (Dex4 Glucose) 4 - 8 tabs PO UD PRN; Protocol PRN Reason: Hypoglycemia Protocol Stop: 06/24/19 10:44 Heparin Sodium (Porcine) (Heparin Sodium (Porcine)) 5,000 units SQ Q8 [facility] Stop: 06/24/19 13:59 Last Admin: 05/26/19 14:05 Dose: 5,000 units Documented by: Furosemide 40 mg/ Syringe 4 mls @ 4 mls/min IV Q8 [facility] Stop: 06/24/19 13:59 Last Admin: 05/26/19 14:05 Dose: 4 mls/min Documented by: Insulin Aspart (Novolog Flexpen) 0 units SC ACHS [facility] Stop: 06/24/19 11:29 Last Admin: 05/26/19 17:11 Dose: 7 units Documented by: Metolazone (Zaroxolyn) 5 mg PO MoTh@0900 [facility] Stop: 06/25/19 08:59 Last Admin: 05/26/19 08:25 Dose: 5 mg Documented by: Metoprolol Succinate (Toprol Xl) 200 mg PO DAILY [facility] Stop: 06/24/19 10:59 Last Admin: 05/26/19 08:24 Dose: 200 mg Documented by: Miscellaneous (Carbohydrates For Hypoglycemia) 15 - 30 gm PO UD PRN PRN Reason: Hypoglycemia Treatment Stop: 06/24/19 10:44 Nitroglycerin (Nitrostat) 0.4 mg SL UD PRN PRN Reason: Chest Pain Stop: 06/24/19 10:16 Last Admin: 05/26/19 10:27 Dose: 0.4 mg Documented by: Ondansetron HCl (Zofran Odt) 4 mg PO Q8H PRN PRN Reason: NAUSEA/VOMITING Stop: 06/24/19 10:22 Pantoprazole Sodium (Protonix) 40 mg PO BID [facility] Stop: 06/24/19 20:59 Last Admin: 05/26/19 08:25 Dose: 40 mg Documented by: Potassium Chloride (Klor-Con M20) 20 meq PO BID [facility] Stop: 06/24/19 10:59 Last Admin: 05/26/19 08:25 Dose: 20 meq Documented by: PG Care Time/CCT Total # of Minutes Spent Total Time Spent with Patient: Total time spent is greater than 50% in coordination of care (as documented) at patient's floor/unit and/or counseling patient: Coding Level of Care Code 03354 Subseq Hosp Care Lvl 3 Diagnoses CHF (congestive heart failure) I50.9 Heart failure chronicity: acute on chronic Heart failure type: unspecified Chest pain R07.2 Chest pain type: precordial pain Sinus tachycardia R00.0 SOB (shortness of breath) R06.02 Obstructive sleep apnea G47.33 Combined systolic and diastolic heart failure I50.41 Heart failure chronicity: acute Diabetes mellitus with diabetic polyneuropathy E11.42 Hypertension I10 Morbid obesity E66.01 Dyslipidemia E78.5 Hypertensive urgency, malignant I16.0 Cough with hemoptysis R04.2 (1) CHF (congestive heart failure) Heart failure chronicity: acute on chronic Heart failure type: unspecified Qualified Code(s): I50.9 - Heart failure, unspecified (2) Combined systolic and diastolic heart failure Heart failure chronicity: acute Qualified Code(s): I50.41 - Acute combined systolic (congestive) and diastolic (congestive) heart failure (3) Chest pain Chest pain type: precordial pain Qualified Code(s): R07.2 - Precordial pain
[2019-05-26 16:59] LABS: BUN Creatinine Ratio 17.4 (10-20); Blood Urea Nitrogen 21 mg/dl (7-18); Calcium 8.8 mg/dl (8.5-10.1); Carbon Dioxide 27 mmol/L (21-32); Chloride 104 mmol/L (98-107); Creatinine Clr Calc Pharmacy 116.3 ml/min; Est GFR (African American) 85.9; Est GFR (Non-African American) 74.1; Glucose 103 mg/dl (70-99); Potassium 4.1 mmol/L (3.5-5.1); Sodium 138 mmol/L (136-145)
[2019-05-26 17:01] LABS: Troponin I < 0.015 ng/ml (0-0.045)
[2019-05-26] MEDS: SACUBITRIL-VALSARTAN 97-103 MG TAB PO SCH (21:27)
[2019-05-27] MEDS: HEPARIN SOD 5,000 UNIT/0.5 ML VIAL SQ SCH (05:52)
[2019-05-27] MEDS: FUROSEMIDE 40 MG in SYRINGE 0 ML IV SCH (05:52)
[2019-05-27 06:26] LABS: Hematocrit (blood only) 43.5 % (42-52); Hemoglobin 14.2 g/dL (14.0-18.0); Mean Corpuscular Hemoglobin 27.3 pg (25-34); Mean Corpuscular Hgb Conc 32.6 g/dL (32-36); Mean Corpuscular Volume 83.5 fL (80-100); Mean Platelet Volume 10.5 fL (7.4-10.4); Platelet Count 199 K/uL (130-400); RDW Coefficient of Variation 15.4 % (11.5-14.5); RDW Standard Deviation 46.9 fL (36.4-46.3); Red Blood Count 5.21 M/uL (4.7-6.1); White Blood Count 10.89 K/uL (4.8-10.8)
[2019-05-27 07:07] LABS: BUN Creatinine Ratio 19.3 (10-20); Calcium 8.8 mg/dl (8.5-10.1); Est GFR (African American) 90.5; Est GFR (Non-African American) 78.1; Potassium 3.3 mmol/L (3.5-5.1)
[2019-05-27] MEDS: INSULIN ASPART 100 UNITS/ML 3 ML PEN SC SCH ×2 (07:57→11:40)
[2019-05-27] MEDS: METOPROLOL SUCC 50MG EXT REL TAB PO SCH (08:00)
[2019-05-27] MEDS: POTASSIUM CHLORIDE 20 MEQ TABCR PO SCH (08:00)
[2019-05-27] MEDS: ASPIRIN 81 MG ECTAB PO SCH (08:00)
[2019-05-27] MEDS: FLUTICASONE/VILANTEROL 200/25MCG 14 PUFFS/INHALER INH SCH (08:00)
[2019-05-27] MEDS: SACUBITRIL-VALSARTAN 97-103 MG TAB PO SCH (08:01)
[2019-05-27] MEDS: PANTOprazole 40 MG TAB PO SCH (08:01)
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
--- NOTE | 2019-05-27 15:52 | Electrocardiogram Report ---
Test Reason : Blood Pressure : / mmHG Vent. Rate : 087 BPM Atrial Rate : 087 BPM P-R Int : 162 ms QRS Dur : 106 ms QT Int : 414 ms P-R-T Axes : 036 -07 105 degrees QTc Int : 498 ms Normal sinus rhythm Left atrial enlargement T wave abnormality, consider lateral ischemia Prolonged QT Abnormal ECG When compared with ECG of 26-MAY-2019 10:20, No significant change was found Confirmed by Abraham Rosen ([id number]) on 05/27/2019 3:52:08 PM Referred By: REFERRED SELF Confirmed By:Abraham Rosen
== END 2019-05-27 12:30 | disposition home health service (06) | DRG 292 ==
LOC: 2S 06:28 → ED 06:28 → SUATTDRO 09:02 → 2S 09:32 → SUATTDRO 05-26 11:11

== ENCOUNTER 2019-07-27 10:10 | Observation (INO) ==
--- NOTE | 2019-07-27 10:35 | Emergency Department Note ---
History of Present Illness General Chief Complaint: Chest Pain Time Seen by Provider: 07/27/19 10:12 Source: patient Mode of arrival: EMS Limitations: no limitations History of Present Illness Provider Complaint: chest pain This is a 43-year-old male who presents to the ED with a chief complaint of right-sided chest pain as well as coughing up a little blood. The patient states that he has had the symptoms for about 5 days. In addition to occasional coughing up some blood with his cough, he states that occasionally a black substance comes up as well. The patient states that he has some right-sided chest pain that sometimes radiates into his abdomen. He denies any fevers or recent illness. He does use between 4 and 6 L of oxygen at home. He is saturating 94% on his 4 L. The patient also uses albuterol inhalers at home. He states that he has coughed up blood previously and no one can figure out why. His previous admission was for the same. Home Medications Home Medications Medication Instructions Recorded Confirmed Type esomeprazole magnesium 20 mg 20 mg PO BID cap 09/05/18 07/27/19 History capsule,delayed release aspirin 81 mg tablet,delayed 81 mg PO QAM 09/17/18 07/27/19 History release cholecalciferol (vitamin D3) 25 2,000 units PO BID cap 09/17/18 07/27/19 History mcg (1,000 unit) capsule OneTouch Delica Plus Lancet 30 #400 ea NS 12/23/18 07/27/19 Rx gauge OneTouch Verio test strips #400 ea NS 12/23/18 07/27/19 Rx potassium chloride 20 mEq 20 meq PO BID 02/25/19 07/27/19 History tablet,extended release albuterol sulfate 90 mcg/actuation 1 puffs INH QID #18 gm 03/26/19 07/27/19 Rx aerosol inhaler sacubitril 97 mg-valsartan 103 mg 1 tab PO BID tab 04/10/19 07/27/19 History tablet nitroglycerin [Nitrostat] 0.4 mg SUBLINGUAL UD PRN 04/24/19 07/27/19 History metolazone 5 mg PO MOTH 04/29/19 07/27/19 History spironolactone 25 mg PO QAM #30 tab 05/07/19 07/27/19 Rx Oxygen Home #1 ea 04/06/20 06/14/20 Rx doxycycline hyclate 100 mg capsule 100 mg PO BID #20 cap 05/22/19 07/27/19 Rx fluticasone 250 mcg-salmeterol 50 1 puffs INH BID #60 ea 05/23/19 07/27/19 Rx mcg/dose blistr powdr for inhalation ondansetron HCl 8 mg tablet 8 mg PO Q8H #60 tab 06/02/19 07/27/19 Rx sucralfate 1 gram tablet 1 gm PO BID #60 tab 06/02/19 07/27/19 Rx bumetanide 1 mg tablet 1 mg PO BID #60 tab 06/19/19 07/27/19 Rx torsemide 20 mg tablet 20 mg PO BID #30 tab 06/19/19 07/27/19 Rx dulaglutide 1.5 mg/0.5 mL 1.5 mg SQ WE #2 ml 06/25/19 07/27/19 Rx subcutaneous pen injector carisoprodol [Soma] 350 mg PO HS PRN 07/27/19 07/27/19 History metoprolol succinate [Toprol XL] 200 mg PO HS 07/27/19 07/27/19 History Allergies Allergy/AdvReac Type Severity Reaction Status Date / Time ceftriaxone Allergy Severe SHORTNESS Verified 07/27/19 10:49 OF BREATH lidocaine Allergy Severe SHORTNESS Verified 07/27/19 10:49 OF BREATH, diaphoretic, hives procaine Allergy Severe SHORTNESS Verified 07/27/19 10:49 OF BREATH, diaphoretic, hives amoxicillin Allergy Intermediate HIVES/FACIAL Verified 07/27/19 10:49 SWELLING clavulanic acid Allergy Intermediate HIVES/FACIAL Verified 07/27/19 10:49 SWELLING lisinopril Allergy Intermediate HIVES Verified 07/27/19 10:49 acetaminophen AdvReac Mild NAUSEA Verified 07/27/19 10:49 albuterol AdvReac Mild proair Verified 07/27/19 10:49 "trouble taking breaths" Past Med/Surg History Medical History Dilatation of thoracic aorta (Inactive) Fatty liver Hearing loss of both ears Hypoxia (Inactive) Iliac aneurysm (Inactive) Left-sided weakness Lung nodule (Inactive) NICM (nonischemic cardiomyopathy) Pt admitted for elective ICD. Underwent procedure without any complications monitored over night and discharged home. SOB (shortness of breath) (Inactive) Umbilical hernia (Inactive) Vitamin D insufficiency Previously deficient, taking Vit D supplementation Surgical History History of carpal tunnel surgery History of cholecystectomy S/P tonsillectomy Family History Father , age 57 of an [place]. 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 Beliefs That Will Affect Care: None marital status: Current Living Situation: Spouse current occupational status: unemployed Other Information That Helps Us Care for You: No Feels Safe at Home: Yes Safety Concerns: Feels Safe At This Time Smoking Status: Former smoker Tobacco Type: cigarettes ; Age Started Using Tobacco: 14 ; Age Quit Using Tobacco: 18 ; Cigarettes Per Day: 40-50 ; Second Hand Exposure: No ; Hx Alcohol Use: Yes Alcohol type: beer and hard liquor Alcohol Intake Frequency: Rarely Hx Substance Use: No Childhood Exposure to Second-Hand Smoke: Yes Dental Care, Regularly: Yes Physical Activity Frequency: Does not Exercise Review of Systems A total of 10 systems reviewed and were otherwise negative Physical Exam Vital Signs Vital Signs - 24 hr 07/27/19 10:14 07/27/19 10:22 07/27/19 10:57 Temperature 36.8 C Temperature Source Oral Pulse Rate 115 H 117 H Pulse Rate from SpO2 Sensor Respiratory Rate 20 Respiratory Depth Normal Blood Pressure 204/130 H 204/130 H Blood Pressure Mean 151 154 Blood Pressure Position Lying Pulse Oximetry 97 97 97 Oxygen Delivery Method Nasal Cannula Nasal Cannula Oxygen Flow Rate 4 4 Sepsis Recent Fever Within 48 Hours No Sepsis Action Taken by Nursing No Action Required 07/27/19 11:00 07/27/19 11:10 07/27/19 11:30 Temperature Temperature Source Pulse Rate 102 H 101 H 102 H Pulse Rate from SpO2 Sensor 102 H Respiratory Rate 23 Respiratory Depth Blood Pressure 196/132 H 175/133 H Blood Pressure Mean 146 142 Blood Pressure Position Pulse Oximetry 96 97 97 Oxygen Delivery Method Nasal Cannula Oxygen Flow Rate 4 Sepsis Recent Fever Within 48 Hours Sepsis Action Taken by Nursing 07/27/19 12:00 07/27/19 12:07 07/27/19 12:33 Temperature Temperature Source Pulse Rate 98 H 105 H Pulse Rate from SpO2 Sensor 99 H 106 H Respiratory Rate 24 26 H Respiratory Depth Blood Pressure 183/128 H 178/142 H Blood Pressure Mean 138 148 Blood Pressure Position Pulse Oximetry 97 98 98 Oxygen Delivery Method Room Air Oxygen Flow Rate Sepsis Recent Fever Within 48 Hours Sepsis Action Taken by Nursing 07/27/19 13:00 Temperature Temperature Source Pulse Rate 108 H Pulse Rate from SpO2 Sensor 108 H Respiratory Rate 27 H Respiratory Depth Blood Pressure 193/143 H Blood Pressure Mean 156 Blood Pressure Position Pulse Oximetry 98 Oxygen Delivery Method Nasal Cannula Oxygen Flow Rate 4 Sepsis Recent Fever Within 48 Hours Sepsis Action Taken by Nursing CONSTITUTIONAL/VITAL SIGNS: Reviewed / noted above. GENERAL: Non-toxic in appearance. INTEGUMENTARY: Warm, dry, and [place]. HEAD: Normocephalic. EYES: without scleral icterus or trauma. ENT/OROPHARYNX: clear and moist. LYMPHADENOPATHY/NECK: Is supple without lymphadenopathy or meningismus. RESPIRATORY: Lungs clear anteriorly and diminished posteriorly and equal. The patient is in no respiratory distress. His breathing appears comfortable. CARDIOVASCULAR: Regular rate and rhythm. GI/ABDOMEN: Soft and nontender. No organomegaly or pulsatile mass. No rebound or guarding. Normal bowel sounds. EXTREMITIES: Warm and well perfused. BACK: No CVA tenderness. NEUROLOGICAL: Intact without focal deficits. PSYCHIATRIC: normal affect. MUSCULOSKELETAL: Normally developed with good muscle tone. TRIAGE NURSING DOCUMENTATION REVIEWED. Course Administered Medications Discontinued Medications Famotidine (Pepcid 20mg Iv Push) 20 mg IV ONE STA Stop: 07/27/19 13:29 Last Admin: 07/27/19 13:35 Dose: 20 mg Documented by: [id number] Hydralazine HCl (Hydralazine Hcl) 10 mg IV NOW STA Stop: 07/27/19 12:15 Last Admin: 07/27/19 12:54 Dose: 10 mg Documented by: [id number] Bumetanide 1 mg/ Syringe 4 mls @ 4 mls/min IV NOW SUKHWINDER Stop: 08/26/19 10:44 Last Admin: 07/27/19 11:10 Dose: 4 mls/min Documented by: [id number] Azithromycin 500 mg/ Dextrose 255 mls @ 125 mls/hr IV ONE ONE Stop: 07/27/19 14:25 Last Infusion: 07/27/19 13:16 Dose: 0 mls/hr Documented by: [id number] Admin: 07/27/19 12:54 Dose: 125 mls/hr Documented by: [id number] Bumetanide 1 mg/ Syringe 4 mls @ 4 mls/min IV TODAY@1300 SUKHWINDER Stop: 07/27/19 13:30 Last Admin: 07/27/19 13:09 Dose: 4 mls/min Documented by: [id number] Potassium Chloride (Annabella Ciel Elix) 20 meq PO NOW STA Stop: 07/27/19 13:03 Last Admin: 07/27/19 13:20 Dose: 20 meq Documented by: [id number] Medical Decision Making Differential Diagnosis The differential that was considered includes acute myocardial infarction, acute coronary syndrome, myocarditis, pericarditis, pericardial effusions /tamponade, esophageal perforation, thoracic aortic dissection, pulmonary embolism, pneumonia, pneumothorax, pancreatitis, shingles, acute cholecystitis, perforated abdominal viscus. Medical Records Attestation: I reviewed the patient's medical records. Home Medications Current Medication List: was personally reviewed by me Laboratory Data Result diagrams: 07/27/19 10:35 07/27/19 10:35 Labs: Lab Results 07/27/19 07/27/19 07/27/19 Range/Units 10:35 10:35 10:35 WBC 9.01 (4.8-10.8) K/uL RBC 5.04 (4.7-6.1) M/uL Hgb 13.1 L (14.0-18.0) g/dL Hct 40.2 L (42-52) % MCV 79.8 L (80-100) fL MCH 26.0 (25-34) pg MCHC 32.6 (32-36) g/dL RDW Std Deviation 46.6 H (36.4-46.3) fL RDW Coeff of Zoltan 16.2 H (11.5-14.5) % Plt Count 159 (130-400) K/uL MPV 9.6 (7.4-10.4) fL Immature Gran % (Auto) 0.2 % Neut % (Auto) 75.8 % Lymph % (Auto) 16.0 % [place] % (Auto) 7.3 % Eos % (Auto) 0.6 % Baso % (Auto) 0.1 % Immature Gran # (Auto) 0.02 (0.00-0.02) K/uL Neut # (Auto) 6.83 H (1.4-6.5) K/uL Lymph # (Auto) 1.44 (1.2-3.4) K/uL [place] # (Auto) 0.66 H (0.11-0.59) K/uL Eos # (Auto) 0.05 (0-0.5) K/uL Baso # (Auto) 0.01 (0-0.2) K/uL PT 11.4 (9.0-12.0) Seconds INR 1.1 (0.9-1.1) APTT 30.3 (21.0-31.0) Seconds PTT Ratio 1.1 Sodium 140 (136-145) mmol/L Potassium 3.8 (3.5-5.1) mmol/L Chloride 109 H (98-107) mmol/L Carbon Dioxide 24 (21-32) mmol/L Anion Gap 6.0 (3-11) BUN 11 (7-18) mg/dl Creatinine 0.85 (0.6-1.4) mg/dl Est Cr Clr Drug Dosing 172.3 ml/min Est GFR ( Amer) 124.6 Est GFR (Non-Af Amer) 107.5 BUN/Creatinine Ratio 13.0 (10-20) Glucose 169 H (70-99) mg/dl Calcium 8.8 (8.5-10.1) mg/dl Iron (35-175) mcg/dl Transferrin (200-360) mg/dl Transferrin % Sat (20-50) % Ferritin (8-388) ng/ml Total Bilirubin 0.8 (0.2-1) mg/dl AST 18 (15-37) U/L ALT 29 (12-78) U/L Alkaline Phosphatase 91 (45-117) U/L Troponin I 0.026 (0-0.045) ng/ml Total Protein 6.9 (6.4-8.2) gm/dl Albumin 3.1 L (3.4-5.0) gm/dl Globulin 3.8 (2.5-4.0) gm/dl Albumin/Globulin Ratio 0.8 L (0.9-2) Lipase 94 (73-393) U/L Procalcitonin (0-0.5) ng/ml Urine Color Urine Appearance (Clear) Urine pH (4.5-7.5) Ur Specific [place] (1.000-1.030) Urine Protein (Negative) Urine Glucose (UA) (Negative) Urine Ketones (Negative) Urine Blood (Negative) Urine Nitrite (Negative) Urine Bilirubin (Negative) Urine Urobilinogen (Negative) Ur Leukocyte Esterase (Negative) Urine WBC (Auto) (0-5) /hpf Urine RBC (Auto) (0-4) /hpf U Hyaline Cast (Auto) (0-5) /lpf U Epithel Cells (Auto) (0-5) /lpf Urine Bacteria (Auto) (Negative) 07/27/19 07/27/19 07/27/19 Range/Units 10:35 10:35 13:00 WBC (4.8-10.8) K/uL RBC (4.7-6.1) M/uL Hgb (14.0-18.0) g/dL Hct (42-52) % MCV (80-100) fL MCH (25-34) pg MCHC (32-36) g/dL RDW Std Deviation (36.4-46.3) fL RDW Coeff of Zoltan (11.5-14.5) % Plt Count (130-400) K/uL MPV (7.4-10.4) fL Immature Gran % (Auto) % Neut % (Auto) % Lymph % (Auto) % [place] % (Auto) % Eos % (Auto) % Baso % (Auto) % Immature Gran # (Auto) (0.00-0.02) K/uL Neut # (Auto) (1.4-6.5) K/uL Lymph # (Auto) (1.2-3.4) K/uL [place] # (Auto) (0.11-0.59) K/uL Eos # (Auto) (0-0.5) K/uL Baso # (Auto) (0-0.2) K/uL PT (9.0-12.0) Seconds INR (0.9-1.1) APTT (21.0-31.0) Seconds PTT Ratio Sodium (136-145) mmol/L Potassium (3.5-5.1) mmol/L Chloride (98-107) mmol/L Carbon Dioxide (21-32) mmol/L Anion Gap (3-11) BUN (7-18) mg/dl Creatinine (0.6-1.4) mg/dl Est Cr Clr Drug Dosing ml/min Est GFR ( Amer) Est GFR (Non-Af Amer) BUN/Creatinine Ratio (10-20) Glucose (70-99) mg/dl Calcium (8.5-10.1) mg/dl Iron 46 (35-175) mcg/dl Transferrin 294 (200-360) mg/dl Transferrin % Sat 11 L (20-50) % Ferritin 53.7 (8-388) ng/ml Total Bilirubin (0.2-1) mg/dl AST (15-37) U/L ALT (12-78) U/L Alkaline Phosphatase (45-117) U/L Troponin I (0-0.045) ng/ml Total Protein (6.4-8.2) gm/dl Albumin (3.4-5.0) gm/dl Globulin (2.5-4.0) gm/dl Albumin/Globulin Ratio (0.9-2) Lipase (73-393) U/L Procalcitonin < 0.05 (0-0.5) ng/ml Urine Color [place] Urine Appearance Clear (Clear) Urine pH 5.0 (4.5-7.5) Ur Specific [place] 1.012 (1.000-1.030) Urine Protein 1+ H (Negative) Urine Glucose (UA) Negative (Negative) Urine Ketones Negative (Negative) Urine Blood Negative (Negative) Urine Nitrite Negative (Negative) Urine Bilirubin Negative (Negative) Urine Urobilinogen Negative (Negative) Ur Leukocyte Esterase Negative (Negative) Urine WBC (Auto) 0 (0-5) /hpf Urine RBC (Auto) 0-4 (0-4) /hpf U Hyaline Cast (Auto) 1-5 (0-5) /lpf U Epithel Cells (Auto) 5-10 H (0-5) /lpf Urine Bacteria (Auto) Negative (Negative) Imaging Data Chest x-ray: Attestation: I personally reviewed and interpreted this imaging study as follows: My impression: Pulmonary edema Radiologist's impression: Chest x-ray:IMPRESSION: 1. Cardiomegaly with pulmonary edema. 2. Probable trace pleural effusions with bibasilar atelectasis. Superimposed pneumonitis would be difficult to exclude. ECG Data Attestation: I personally reviewed and interpreted this ECG as follows: Indication: chest pain Rate (beats per minute): 112 Rhythm: sinus tachycardia Findings: + prolonged QT; no PVC and no ST elevation Blood Pressure Blood Pressure Findings: Elevated blood pressure Blood Pressure Disposition: further management by hospitalist BEENA Cody This is a 43-year-old male who presents to the ED with a chief complaint of right-sided chest pain as well as coughing up a little blood. The patient state s that he has had the symptoms for about 5 days. In addition to occasional coughing up some blood with his cough, he states that occasionally a black substance comes up as well. The patient states that he has some right-sided chest pain that sometimes radiates into his abdomen. He denies any fevers or recent illness. He does use between 4 and 6 L of oxygen at home. He is saturating 94% on his 4 L. The patient also uses albuterol inhalers at home. He states that he has coughed up blood previously and no one can figure out why. His previous admission was for the same the patient's vital signs reveal significant hypertension with a blood pressure of 204/130. His heart rate is 117. Oxygen saturations are normal on his 4 L. His exam reveals slightly diminished breath sounds bilaterally but they appear clear. He is in no respiratory distress while at rest. The patient CBC and chemistry panel was relatively unremarkable. His troponin was normal. Chest x-ray reveals cardiomegaly with pulmonary edema. EKG shows sinus tach without ischemic changes. The patient was treated with IV labetalol for his severe hypertension and IV Bumex. He did diurese some here. He was given additional hydralazine IV for his continued hypertension. Because of his coughing up the blood. The patient was empirically treated with some IV Zithromax. This could be related to pneumonia. Because of his hypertension and congestive heart failure/pulmonary edema, the patient will require inpatient evaluation and care. I spoke with the hospitalist about this. Cardiac monitoring: An order was placed for continuous cardiac monitoring. The monitor shows a rate of 110 with sinus rhythm. Impression & Plan Hypertensive emergency, Congestive heart failure, Pulmonary edema Discharge Plan Visit Data *Final* Discharge Date/Time: 07/27/19 13:55 Chief Complaint: Chest Pain ED Provider: Kan Ya Discharge Problem: Hypertensive emergency, Congestive heart failure, Pulmonary edema Patient Disposition: Admitted As Inpatient Discharge Instructions Interventions: ED Discharge Assessment Last Done: 07/27/19 13:55 Discharge Problem: Congestive heart failure Qualifiers: Heart failure type: unspecified Heart failure chronicity: acute on chronic Qualified Code(s): I50.9 - Heart failure, unspecified Pulmonary edema Qualifiers: Chronicity: acute Qualified Code(s): J81.0 - Acute pulmonary edema
[2019-07-27] MEDS ORDERED: BUMETANIDE 1 MG in SYRINGE 0 ML IV SCH ×2 (10:45→13:00)
--- NOTE | 2019-07-27 10:45 | XRay Report ---
XR chest 1V portable HISTORY: 43 years-old Male Chest Pain acute atypical chest pain COMPARISON: Chest radiograph 05/25/2019 TECHNIQUE: Portable AP view of the chest FINDINGS: Cardiac silhouette is enlarged, unchanged. Pulmonary vascular congestion with interstitial coarsening . Left subclavian pacer/AICD. No pneumothorax. Probable trace pleural effusions with mild bibasilar d ensities. Degenerative changes of the shoulders and spine. IMPRESSION: 1. Cardiomegaly with pulmonary edema. 2. Probable trace pleural effusions with bibasilar atelectasis. Superimposed pneumonitis would be dif ficult to exclude. ACT 112: Negative or not required by law. The above report was generated using voice recognition software. It may contain grammatical, syntax o r spelling errors. Electronically signed by: Petr Irby M.D. 07/27/2019 10:44 AM
[2019-07-27 10:48] LABS: Basophils # (auto) 0.01 K/uL (0-0.2); Basophils % (auto) 0.1 %; Eosinophils # (auto) 0.05 K/uL (0-0.5); Eosinophils % (auto) 0.6 %; Hematocrit (blood only) 40.2 % (42-52); Hemoglobin 13.1 g/dL (14.0-18.0); Immature Granulocytes # (auto) 0.02 K/uL (0.00-0.02); Immature Granulocytes % (auto) 0.2 %; Lymphocytes # (auto) 1.44 K/uL (1.2-3.4); Mean Corpuscular Hgb Conc 32.6 g/dL (32-36); Mean Corpuscular Volume 79.8 fL (80-100); Mean Platelet Volume 9.6 fL (7.4-10.4); Monocytes # (auto) 0.66 K/uL (0.11-0.59); Monocytes % (auto) 7.3 %; Neutrophils # (auto) 6.83 K/uL (1.4-6.5); Neutrophils % (auto) 75.8 %; Platelet Count 159 K/uL (130-400); RDW Coefficient of Variation 16.2 % (11.5-14.5); RDW Standard Deviation 46.6 fL (36.4-46.3); Red Blood Count 5.04 M/uL (4.7-6.1); White Blood Count 9.01 K/uL (4.8-10.8)
--- NOTE | 2019-07-27 10:52 | Electrocardiogram Report ---
Test Reason : Blood Pressure : / mmHG Vent. Rate : 112 BPM Atrial Rate : 112 BPM P-R Int : 160 ms QRS Dur : 102 ms QT Int : 356 ms P-R-T Axes : 033 -46 094 degrees QTc Int : 485 ms Sinus tachycardia Left atrial enlargement Left anterior fascicular block Left ventricular hypertrophy with secondary ST/T changes prolonged QT Abnormal ECG When compared with ECG of 26-MAY-2019 16:34, QRS axis Shifted left Confirmed by Da Street ([id number]) on 07/27/2019 10:52:19 AM Referred By: Confirmed By:Da Street
[2019-07-27 11:00] LABS: INR 1.1 (0.9-1.1); Partial Thromboplastin Ratio 1.1; Partial Thromboplastin Time 30.3 Seconds (21.0-31.0); Prothrombin Time 11.4 Seconds (9.0-12.0)
[2019-07-27 11:05] LABS: Albumin Level 3.1 gm/dl (3.4-5.0); Calcium 8.8 mg/dl (8.5-10.1); Creatinine Clr Calc Pharmacy 172.3 ml/min; Est GFR (African American) 124.6; Est GFR (Non-African American) 107.5; Potassium 3.8 mmol/L (3.5-5.1)
[2019-07-27 11:10] LABS: Albumin Globulin Ratio 0.8 (0.9-2); Bilirubin,Total 0.8 mg/dl (0.2-1); Globulin 3.8 gm/dl (2.5-4.0); Total Protein 6.9 gm/dl (6.4-8.2); Troponin I 0.026 ng/ml (0-0.045)
[2019-07-27] MEDS ORDERED: HydrALAZINE HCL 20 MG/ML VIAL IV STA (12:14)
[2019-07-27] MEDS ORDERED: AZITHROMYCIN 500 MG in DEXTROSE 5% 250 ML IV ONE (12:23)
--- NOTE | 2019-07-27 12:41 | History & Physical Report ---
Date of Service July 27, 2019 Assessment & Plan (1) Acute on chronic combined systolic (congestive) and diastolic (congestive) heart failure: Daily weights Strict I&Os Fluid restrict 1500ml, low Na diet HOB elevated > 30 degrees at all times Bumex 1mg IV given in ER, additional 1mg given on admission Will treat with same regimen as his last admission with 40mg IV lasix TID Continue outpatient spironolactone 25mg PO daily Potassium replacement as needed Reassess in AM if metolazone needed in addition Will hold off consulting cardiology at present as admission very similar to prior admissions (2) NICM (nonischemic cardiomyopathy): Continue metoprolol succinate XL 200mg HS Entresto 97-103mg BID ICD in place (03/2019) (3) Hypertensive emergency: Secondary to hypervolemic state. Improving with diuresis (4) Tachycardia: ?not taking metoprolol with history of non-compliance vs. appropriate tachycardia in setting of poor organ perfusion Restart his usual metoprolol succinate and monitor (5) Gastritis: Significant epigastric pain on exam. IV famotidine given in ER (6) Cough with hemoptysis: Occurs each time with his pulmonary edema. Follow up with pulmonology on discharge. (7) Cardiac defibrillator in place: Noted (8) COPD (chronic obstructive pulmonary disease): Continue his usual maintenance inhalers (9) GERD (gastroesophageal reflux disease): Switch Nexium for pantoprazole as per hospital formulary Continue Carafate (10) Obstructive sleep apnea: Patient reports not wearing CPAP at home. (11) Melena: Noted by patient. x1 episode yesterday. Trend H&H. FOB stool. (12) Microcytic anemia: Iron sats 10%. Will arrange for iron transfusion once fluid status more acceptable. (13) DVT prophylaxis: SCDs No chemical anticoagulation due to hemoptysis Admission and Anticipated Discharge Date Admission Date: 07/27/2019 History of Present Illness Chief Complaint: Chest, epigastric, back pain, shortness of breath Primary Care Provider: CM Vargas, MS, [employer] Alok Huff is a 43 year old male well known to this service with recurrent episode of acute CHF and hemoptysis. On this occasion he reports generally getting worse over the past week. Complaining of chest pain although this is not unusual for him (many negative troponins over hospitalizations negative with the same chest pain). Pain is substernal, severity 9/10, no worse on inspiration, palpation or leaning forward. He denies any heartburn or if any food may have triggered this off. Troponin in ER at his baseline. Having hemoptysis and is unsure why he is getting this although it has been discussed on numerous prior occasions and usually occurs with his pulmonary edema. Patient with longstanding history of non-compliance and limited understanding of his heart failure. He is also having left sided radiculopathy pains. These are somewhat chronic for at least the last 2 years. He denies any loss of bowel or bladder control. No perianal numbness. On this occasion his back pain flared up at the same time as his chest pain approximately 2 days previously. He reports still taking doxycycline although this was prescribed for him back in May but he tells me they keep on refilling it. On home medication list he is prescribed both lasix and torsemide but he is unsure which one or if he is taking both. Allergies Allergy/AdvReac Type Severity Reaction Status Date / Time ceftriaxone Allergy Severe SHORTNESS Verified 07/27/19 10:49 OF BREATH lidocaine Allergy Severe SHORTNESS Verified 07/27/19 10:49 OF BREATH, diaphoretic, hives procaine Allergy Severe SHORTNESS Verified 07/27/19 10:49 OF BREATH, diaphoretic, hives amoxicillin Allergy Intermediate HIVES/FACIAL Verified 07/27/19 10:49 SWELLING clavulanic acid Allergy Intermediate HIVES/FACIAL Verified 07/27/19 10:49 SWELLING lisinopril Allergy Intermediate HIVES Verified 07/27/19 10:49 acetaminophen AdvReac Mild NAUSEA Verified 07/27/19 10:49 albuterol AdvReac Mild proair Verified 07/27/19 10:49 "trouble taking breaths" Home Medications Home Medications Medication Instructions Recorded Confirmed Type esomeprazole magnesium 20 mg 20 mg PO BID cap 09/05/18 07/27/19 History capsule,delayed release aspirin 81 mg tablet,delayed 81 mg PO QAM 09/17/18 07/27/19 History release cholecalciferol (vitamin D3) 25 2,000 units PO BID cap 09/17/18 07/27/19 Hist ory mcg (1,000 unit) capsule OneTouch Delica Plus Lancet 30 #400 ea NS 12/23/18 07/27/19 Rx gauge OneTouch Verio test strips #400 ea NS 12/23/18 07/27/19 Rx potassium chloride 20 mEq 20 meq PO BID 02/25/19 07/27/19 History tablet,extended release albuterol sulfate 90 mcg/actuation 1 puffs INH QID #18 gm 03/26/19 07/27/19 Rx aerosol inhaler sacubitril 97 mg-valsartan 103 mg 1 tab PO BID tab 04/10/19 07/27/19 History tablet nitroglycerin [Nitrostat] 0.4 mg SUBLINGUAL UD PRN 04/24/19 07/27/19 History metolazone 5 mg PO MOTH 04/29/19 07/27/19 History spironolactone 25 mg PO QAM #30 tab 05/07/19 07/27/19 Rx Oxygen Home #1 ea 05/19/19 07/27/19 Rx fluticasone 250 mcg-salmeterol 50 1 puffs INH BID #60 ea 05/23/19 07/27/19 Rx mcg/dose blistr powdr for inhalation ondansetron HCl 8 mg tablet 8 mg PO Q8H #60 tab 06/02/19 07/27/19 Rx sucralfate 1 gram tablet 1 gm PO BID #60 tab 06/02/19 07/27/19 Rx bumetanide 1 mg tablet 1 mg PO BID #60 tab 06/19/19 07/27/19 Rx torsemide 20 mg tablet 20 mg PO BID #30 tab 06/19/19 07/27/19 Rx dulaglutide 1.5 mg/0.5 mL 1.5 mg SQ WE #2 ml 06/25/19 07/27/19 Rx subcutaneous pen injector carisoprodol [Soma] 350 mg PO HS PRN 07/27/19 07/27/19 History metoprolol succinate [Toprol XL] 200 mg PO HS 07/27/19 07/27/19 History Past Med/Surg History Medical History (Updated 07/27/19 @ 22:00 by Migue Laguna MD) Dilatation of thoracic aorta (Inactive) Fatty liver Hearing loss of both ears Hypoxia (Inactive) Iliac aneurysm (Inactive) Left-sided weakness Lung nodule (Inactive) NICM (nonischemic cardiomyopathy) Pt admitted for elective ICD. Underwent procedure without any complications monitored over night and discharged home. SOB (shortness of breath) (Inactive) Umbilical hernia (Inactive) Vitamin D insufficiency Previously deficient, taking Vit D supplementation Surgical History History of carpal tunnel surgery History of cholecystectomy S/P tonsillectomy Family History Father , age 57 of an [place]. Heart disease Myocardial infarction Mother , age 67 of a ruptured neck vessel Sudden Other Depression Lung disease No pertinent family history Denies family history of Ovarian cancer Prostate cancer Breast cancer Colorectal cancer Social History Preferred Language: Lithuanian Communication Ability: Effective Visual Impairment: No Limitations Hearing Ability: Normal Internal Corrosion Specialist Required: No Beliefs That Will Affect Care: None marital status: Current Living Situation: Spouse current occupational status: unemployed Other Information That Helps Us Care for You: No Feels Safe at Home: Yes Safety Concerns: Feels Safe At This Time Smoking Status: Former smoker Tobacco Type: cigarettes ; Age Started Using Tobacco: 14 ; Age Quit Using Tobacco: 18 ; Cigarettes Per Day: 40-50 ; Second Hand Exposure: No ; Hx Alcohol Use: Yes Alcohol type: beer and hard liquor Alcohol Intake Frequency: Rarely Hx Substance Use: No Childhood Exposure to Second-Hand Smoke: Yes Dental Care, Regularly: Yes Physical Activity Frequency: Does not Exercise Review of Systems Review of Systems: All systems reviewed & are unremarkable except as noted in HPI & below Gastrointestinal: + melena (x1 episode yesterday) Physical Exam Constitutional: well developed, + acute distress (chest, epigastric, back pain and respiratory status) and + obese; + not well nourished Eyes: + anicteric sclerae; normal pupil size ENMT: external ear and nose normal, oropharynx normal Neck: trachea midline, + short neck and + thick neck Respiratory: normal respiratory effort; no respiratory distress Auscultation: + diminished lung sounds (bibasal to mid lung); no crackles and no wheezes Cardiovascular: Rate/Rhythm: regular rate and regular rhythm Heart Sounds: normal S1 (quiet); no murmur Vessels: no JVD (unable to adequately assess) Extremities: normal capillary refill and + pedal edema (2+ to knees R > L (usually R > L)); no calf tenderness Gastrointestinal (Abdomen): Inspection/Auscultation: normal bowel sounds Percussion/Palpation: + abdomen tender (epigastric) and abdomen soft; no guarding and abdomen not rigid Musculoskeletal: Head/Neck/Chest: normocephalic and head atraumatic left lumbar paraspinal pain on palpation Skin: no rashes, warm and dry Neurologic: moves all extremities and awake; not confused Speech / Cognition: normal speech Motor/Sensory: + sensory deficit (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); no tremor and no pronator drift Psychiatric: Orientation: alert and oriented x 3 Genitourinary: + CVA tenderness (left sided) Results & Data Results & Data ([facility]) Vital Signs (Past 12 Hours) Vital Signs Temp Pulse Resp BP Pulse Ox 07/27/19 12:33 98 07/27/19 12:07 105 H 26 H 178/142 H 98 07/27/19 12:00 98 H 24 183/128 H 97 07/27/19 11:30 102 H 23 175/133 H 97 07/27/19 11:10 101 H 97 07/27/19 11:00 102 H 196/132 H 96 07/27/19 10:57 97 07/27/19 10:22 36.8 C 117 H 20 204/130 H 97 07/27/19 10:14 115 H 204/130 H 97 Diagnostic Findings XR chest 1V portable IMPRESSION: 1. Cardiomegaly with pulmonary edema. 2. Probable trace pleural effusions with bibasilar atelectasis. Superimposed pneumonitis would be difficult to exclude. ECG Indication: chest pain Rate (beats per minute): 112 Rhythm: sinus tachycardia Findings: + LAFB Comparison ECG Date: from Code Status & VTE Plan Code Status Full VTE Prophylaxis Plan VTE Prophylaxis will be ordered: Yes Reason for no VTE drug order: Contraindicated (hemoptysis) PG Care Time/CCT Total # of Minutes Spent Total Time Spent with Patient: Total time spent is greater than 50% in coordination of care (as documented) at patient's floor/unit and/or counseling patient: Coding Level of Care Code 38272 OBS Care - Level 3 Diagnoses Acute on chronic combined systolic (congestive) and diastolic (congestive) heart failure I50.43 NICM (nonischemic cardiomyopathy) I42.8 Hypertensive emergency I16.1 Tachycardia R00.0 Gastritis K29.70 Cough with hemoptysis R04.[address] Z95.810 COPD (chronic obstructive pulmonary disease) J44.9 COPD type: unspecified COPD GERD (gastroesophageal reflux disease) K21.9 Esophagitis presence: without esophagitis Obstructive sleep apnea G47.33 Melena K92.1 Microcytic anemia D50.9 DVT prophylaxis Z29.9 (1) COPD (chronic obstructive pulmonary disease) COPD type: unspecified COPD Qualified Code(s): J44.9 - Chronic obstructive pulmonary disease, unspecified (2) GERD (gastroesophageal reflux disease) Esophagitis presence: without esophagitis Qualified Code(s): K21.9 - Gastro- esophageal reflux disease without esophagitis
[2019-07-27] MEDS ORDERED: POTASSIUM CHLORIDE 20 MEQ/15 ML UDC PO STA (13:02)
[2019-07-27 13:15] LABS: Ferritin 53.7 ng/ml (8-388)
[2019-07-27] MEDS ORDERED: FAMOTIDINE 20MG/5ML IV PUSH IV STA (13:28)
[2019-07-27 13:34] LABS: Appearance Urine Clear (Clear); Bacteria Urine Automated Negative (Negative); Bilirubin Urine Negative (Negative); Blood Urine Negative (Negative); Color Urine Orange; Glucose Urine UA Negative (Negative); Ketones Urine Negative (Negative); Leukocyte Esterase Urine Negative (Negative); Nitrite Urine Negative (Negative); Protein Urine 1+ (Negative); RBC Urine Automated 0-4 /hpf (0-4); Specific Gravity Urine 1.012 (1.000-1.030); Urobilinogen Urine Negative (Negative); WBC Urine Automated 0 /hpf (0-5)
[2019-07-27] MEDS ORDERED: ALUMINUM/MAGNESIUM SUSP 30 ML UDC PO PRN (14:22)
[2019-07-27] MEDS ORDERED: ACETAMINOPHEN 325 MG TAB PO PRN (14:22)
[2019-07-27] MEDS ORDERED: POLYETHYLENE (MIRALAX) 17 GM PACK PO PRN (14:22)
[2019-07-27] MEDS ORDERED: ONDANSETRON INJ 2 MG/ML 2 ML VIAL IV PRN (14:22)
[2019-07-27] MEDS ORDERED: CARISOPRODOL 350 MG TABLET PO PRN (14:22)
[2019-07-27] MEDS ORDERED: MAGNESIUM HYDROXIDE SUSP 30 ML UDC PO PRN (14:22)
[2019-07-27 16:16] LABS: BUN Creatinine Ratio 11.7 (10-20); Calcium 8.5 mg/dl (8.5-10.1); Creatinine Clr Calc Pharmacy 164.1 ml/min; Est GFR (African American) 122.2; Est GFR (Non-African American) 105.5; Magnesium 1.7 mg/dl (1.8-2.4); Potassium 3.7 mmol/L (3.5-5.1)
[2019-07-27 16:20] LABS: Troponin I 0.034 ng/ml (0-0.045)
[2019-07-27 16:32] LABS: Hematocrit (blood only) 43.4 % (42-52); Hemoglobin 14.2 g/dL (14.0-18.0)
[2019-07-27] MEDS ORDERED: POTASSIUM CHLORIDE 20 MEQ TABCR PO STA (18:32)
[2019-07-27] MEDS ORDERED: GLUCAGON FOR INJ 1 MG VIAL SQ PRN (18:35)
[2019-07-27] MEDS ORDERED: DEXTROSE 50% 50 ML SYRINGE IV PRN (18:35)
[2019-07-27] MEDS ORDERED: CARBOHYDRATES FOR HYPOGLYCEMIA PO PRN (18:35)
[2019-07-27] MEDS ORDERED: GLUCOSE 10 TABS/TUBE PO PRN (18:35)
[2019-07-27] MEDS ORDERED: GLUCOSE 40% GEL 15 GM TUBE PO PRN (18:35)
[2019-07-27] MEDS ORDERED: INSULIN HUMAN NPH SC SCH (19:00)
[2019-07-27] MEDS: FUROSEMIDE 40 MG in SYRINGE 0 ML IV SCH (20:41)
[2019-07-27] MEDS: POTASSIUM CHLORIDE 20 MEQ TABCR PO SCH (20:42)
[2019-07-27] MEDS: SUCRALFATE 1 GM TAB PO SCH (20:42)
[2019-07-27] MEDS: SACUBITRIL-VALSARTAN 97-103 MG TAB PO SCH (20:42)
[2019-07-27] MEDS: MAGNESIUM OXIDE 400 MG TAB PO SCH (20:42)
[2019-07-27] MEDS: METOPROLOL SUCC 50MG EXT REL TAB PO SCH (20:42)
[2019-07-27] MEDS: CHOLECALCIFEROL 1,000 UNITS 25 MCG TAB PO SCH (20:44)
[2019-07-27] MEDS: INSULIN ASPART 100 UNITS/ML 3 ML PEN SC SCH (20:45)
[2019-07-27] MEDS: PANTOprazole 40 MG TAB PO SCH (20:45)
[2019-07-27] MEDS: INSULIN HUMAN NPH SC SCH (20:46)
[2019-07-27] MEDS ORDERED: TRAMADOL HCL 50 MG TABLET PO STA (23:51)
[2019-07-28 06:33] LABS: Hemoglobin 14.3 g/dL (14.0-18.0); Mean Corpuscular Hemoglobin 25.7 pg (25-34); Mean Corpuscular Hgb Conc 31.8 g/dL (32-36); Mean Corpuscular Volume 80.8 fL (80-100); Mean Platelet Volume 10.2 fL (7.4-10.4); Platelet Count 205 K/uL (130-400); RDW Coefficient of Variation 16.1 % (11.5-14.5); RDW Standard Deviation 47.8 fL (36.4-46.3); Red Blood Count 5.57 M/uL (4.7-6.1); White Blood Count 9.83 K/uL (4.8-10.8)
[2019-07-28 07:15] LABS: BUN Creatinine Ratio 13.1 (10-20); Calcium 8.7 mg/dl (8.5-10.1); Creatinine Clr Calc Pharmacy 170.6 ml/min; Est GFR (African American) 125.2; Potassium 3.6 mmol/L (3.5-5.1)
[2019-07-28 07:32] LABS: Estimated Average Glucose 177 mg/dl; Hemoglobin A1C 7.8 % (4.5-5.6)
--- NOTE | 2019-07-28 07:48 | Hospitalist Progress Note ---
Date of Service July 28, 2019 Assessment & Plan (1) Acute on chronic combined systolic (congestive) and diastolic (congestive) heart failure: Pt has had good weight loss, pt denies medical or dietary indiscretion but cannot explain why he gets more ill at home Fluid restrict 1500ml, low Na diet HOB elevated > 30 degrees at all times Bumex 1mg IV given in ER, additional 1mg given on admission Now 40mg IV lasix TID, plus spironolactone 25mg PO daily Potassium replacement (2) NICM (nonischemic cardiomyopathy): Continue metoprolol succinate XL 200mg HS Entresto 97-103mg BID ICD in place (03/2019) (3) Hypertensive emergency: Secondary to hypervolemic state. Improving with diuresis (4) Tachycardia: ?not taking metoprolol with history of non-compliance vs. appropriate tachycardia in setting of poor organ perfusion Restart his usual metoprolol succinate and monitor (5) Gastritis: Significant epigastric pain on exam. IV famotidine given in ER (6) Cough with hemoptysis: Occurs each time with his pulmonary edema. Follow up with pulmonology on discharge. (7) Cardiac defibrillator in place: Noted (8) COPD (chronic obstructive pulmonary disease): Continue his usual maintenance inhalers (9) Depression with anxiety: (10) GERD (gastroesophageal reflux disease): Switch Nexium for pantoprazole as per hospital formulary (11) Obstructive sleep apnea: Patient reports not wearing CPAP at home. (12) Melena: Noted by patient. x1 episode yesterday. Trend H&H. FOB stool. (13) Microcytic anemia: Iron sats 10%. Will arrange for iron transfusion once fluid status more accetable. (14) DVT prophylaxis: SCDs No chemical anticoagulation due to hemoptysis Admission and Anticipated Discharge Date Admission Date: July 27, 2019 Subjective Patient states he feels somewhat better. He is mostly concerned about why continues to get sick at home and him having some hemoptysis. He claims of had extensive work-ups for hemoptysis including ear nose and throat pulmonary medicine and GI medicine and no incident able to find out why. He denies any insight into why he is over his dry weight by a fairly large amount and we have had some good progress towards diuresing him at this time. Last echocardiogram in [facility] was April 01, 2019 showing an EF of 25 to 30% with moderate to severe global hypokinesis of the left ventricle. Review of Systems Review of Systems: Mild distress and fatigue no headache, blurry or double vision no speech or swallowing issues no chest pain, pressure or palpitations continued shortness of breath, non productive cough no abdominal pain, nausea or vomiting, diarrhea or constipation no dysuria, hematuria or frequency no focal joint pain or swelling no back pain, CVA tenderness or radicular pain no bruising, bleeding or rashes no focal signs of weakness or numbness or altered sensation no complaints or anxiety or depression. Physical Exam Physical Exam: The patient appeared obese and in mild respiratory distress Vital signs as documented. Head exam is normocephalic atraumatic no scleral icterus Neck is without JVD, thyromegaly, or carotid bruits. Lungs are diminshed throughout, rales and rhonchi Cardiac exam, Rhythm is regular.. systolic murmurs Abdominal exam reveals normal bowel sounds, soft non tender, no masses Extremities are edematous and both LE have changes of chronic venous stasis changes Neurologic exam is alert and oriented, no focal loss of strength or sensation Skin is without bruises or rashes Psychologically is without concerns for anxiety or depression Results & Data Results & [facility] ([facility]) Vital Signs (Past 12 Hours) Vital Signs Temp Pulse Pulse Resp BP BP Pulse Ox 07/28/19 03:19 98.2 F 79 19 145/101 H 97 07/27/19 23:59 102 H 07/27/19 23:39 98.6 F 88 19 145/96 H 95 07/27/19 22:06 100 H 18 165/115 H 166/118 H 07/27/19 20:15 105 H 07/27/19 19:50 97.7 F 105 H 19 182/125 H 96 PG Care Time/CCT Total # of Minutes Spent Total Time Spent with Patient: Total time spent is greater than 50% in co ordination of care (as documented) at patient's floor/unit and/or counseling patient: Coding Level of Care Code 37817 Subseq Hosp Care Lvl 3 Diagnoses Acute on chronic combined systolic (congestive) and diastolic (congestive) heart failure I50.43 NICM (nonischemic cardiomyopathy) I42.8 Hypertensive emergency I16.1 Tachycardia R00.0 Gastritis K29.70 Cough with hemoptysis R04.[address] Z95.810 COPD (chronic obstructive pulmonary disease) J44.9 COPD type: unspecified COPD Depression with anxiety F41.8 GERD (gastroesophageal reflux disease) K21.9 Esophagitis presence: without esophagitis Obstructive sleep apnea G47.33 Melena K92.1 Microcytic anemia D50.9 DVT prophylaxis Z29.9 (1) COPD (chronic obstructive pulmonary disease) COPD type: unspecified COPD Qualified Code(s): J44.9 - Chronic obstructive pulmonary disease, unspecified (2) GERD (gastroesophageal reflux disease) Esophagitis presence: without esophagitis Qualified Code(s): K21.9 - Gastro- esophageal reflux disease without esophagitis
[2019-07-28] MEDS ORDERED: MAGNESIUM SULFATE / D5W 1 GM/100 ML BAG IV ONE (08:30)
[2019-07-28] MEDS: ASPIRIN 81 MG ECTAB PO SCH (08:48)
[2019-07-28] MEDS: MAGNESIUM OXIDE 400 MG TAB PO SCH ×2 (08:48→19:49)
[2019-07-28] MEDS: FUROSEMIDE 40 MG in SYRINGE 0 ML IV SCH ×3 (08:48→19:49)
[2019-07-28] MEDS: POTASSIUM CHLORIDE 20 MEQ TABCR PO SCH ×2 (08:48→19:49)
[2019-07-28] MEDS: SPIRONOLACTONE 25 MG TAB PO SCH (08:48)
[2019-07-28] MEDS: INSULIN ASPART 100 UNITS/ML 3 ML PEN SC SCH ×4 (08:49→20:45)
[2019-07-28] MEDS: CHOLECALCIFEROL 1,000 UNITS 25 MCG TAB PO SCH ×2 (08:49→19:50)
[2019-07-28] MEDS: SACUBITRIL-VALSARTAN 97-103 MG TAB PO SCH ×2 (08:49→19:50)
[2019-07-28] MEDS: SUCRALFATE 1 GM TAB PO SCH ×2 (08:49→19:49)
[2019-07-28] MEDS: INSULIN HUMAN NPH SC SCH ×2 (08:50→17:38)
[2019-07-28] MEDS: PANTOprazole 40 MG TAB PO SCH ×2 (08:54→19:50)
[2019-07-28] MEDS: METOPROLOL SUCC 50MG EXT REL TAB PO SCH (19:49)
[2019-07-29] MEDS: INSULIN ASPART 100 UNITS/ML 3 ML PEN SC SCH (07:56)
[2019-07-29] MEDS: INSULIN HUMAN NPH SC SCH (07:57)
[2019-07-29] MEDS: FUROSEMIDE 40 MG in SYRINGE 0 ML IV SCH (08:00)
[2019-07-29] MEDS: SACUBITRIL-VALSARTAN 97-103 MG TAB PO SCH (08:01)
[2019-07-29] MEDS: PANTOprazole 40 MG TAB PO SCH (08:01)
[2019-07-29] MEDS: MAGNESIUM OXIDE 400 MG TAB PO SCH (08:01)
[2019-07-29] MEDS: SPIRONOLACTONE 25 MG TAB PO SCH (08:01)
[2019-07-29] MEDS: POTASSIUM CHLORIDE 20 MEQ TABCR PO SCH (08:02)
[2019-07-29] MEDS: ASPIRIN 81 MG ECTAB PO SCH (08:02)
[2019-07-29] MEDS: CHOLECALCIFEROL 1,000 UNITS 25 MCG TAB PO SCH (08:02)
[2019-07-29] MEDS: SUCRALFATE 1 GM TAB PO SCH (08:03)
--- NOTE | 2019-07-29 15:37 | Discharge Summary ---
Date of Service July 29, 2019 Admission HPI Per Admitting Provider Alok Huff is a 43 year old male well known to this service with recurrent episode of acute CHF and hemoptysis. On this occasion he reports generally getting worse over the past week. Complaining of chest pain although this is not unusual for him (many negative troponins over hospitalizations negative with the same chest pain). Pain is substernal, severity 9/10, no worse on inspiration, palpation or leaning forward. He denies any heartburn or if any food may have triggered this off. Troponin in ER at his baseline. Having hemoptysis and is unsure why he is getting this although it has been discussed on numerous prior occasions and usually occurs with his pulmonary edema. Patient with longstanding history of non-compliance and limited understanding of his heart failure. He is also having left sided radiculopathy pains. These are somewhat chronic for at least the last 2 years. He denies any loss of bowel or bladder control. No perianal numbness. On this occasion his back pain flared up at the same time as his chest pain approximately 2 days previously. He reports still taking doxycycline although this was prescribed for him back in May but he tells me they keep on refilling it. On home medication list he is prescribed both lasix and torsemide but he is unsure which one or if he is taking both. Principal Diagnosis Acute on chronic systolic and diastolic heart failure Discharge Exam The patient appeared well Vital signs as documented. Lungs are diminished at the bases with scant rales Cardiac exam, Rhythm is regular.. Systolic ejection murmur Abdominal exam reveals normal bowel sounds, soft non tender, no masses Extremities are 1+ edematous and both pedal pulses are normal. Neurologic exam is alert and oriented, no focal loss of strength or sensation Skin is without bruises mild chronic venous stasis changes to his lower extremities are present Psychologically is without concerns for anxiety or depression Discharge Data Allergies Allergy/AdvReac Type Severity Reaction Status Date / Time ceftriaxone Allergy Severe SHORTNESS Verified 07/27/19 10:49 OF BREATH lidocaine Allergy Severe SHORTNESS Verified 07/27/19 10:49 OF BREATH, diaphoretic, hives procaine Allergy Severe SHORTNESS Verified 07/27/19 10:49 OF BREATH, diaphoretic, hives amoxicillin Allergy Intermediate HIVES/FACIAL Verified 07/27/19 10:49 SWELLING clavulanic acid Allergy Intermediate HIVES/FACIAL Verified 07/27/19 10:49 SWELLING lisinopril Allergy Intermediate HIVES Verified 07/27/19 10:49 acetaminophen AdvReac Mild NAUSEA Verified 07/27/19 10:49 albuterol AdvReac Mild proair Verified 07/27/19 10:49 "trouble taking breaths" Consultations 07/27/19 12:22 ED Decision to Admit Stat Hospital Course (1) Acute on chronic combined systolic (congestive) and diastolic (congestive) heart failure: Pt has had good weight loss, pt denies medical or dietary indiscretion but cannot explain why he gets more ill at home Fluid restrict to 2 L a day or 64 ounces a day, recommend to continue on low Na diet We will hold Bumex escalate torsemide to 40 twice daily and continue spironolactone 25mg PO daily Potassium replacement continues Short-term follow-up with cardiology (2) NICM (nonischemic cardiomyopathy): Continue metoprolol succinate XL 200mg HS Entresto 97-103mg BID ICD in place (03/2019) (3) Hypertensive emergency: Secondary to hypervolemic state. Resolved (4) Tachycardia: Restart his usual metoprolol succinate (5) Gastritis: This is improved and resolved (6) Cough with hemoptysis: Occurs each time with his pulmonary edema. Follow up with pulmonology on discharge. (7) Cardiac defibrillator in place: Noted (8) COPD (chronic obstructive pulmonary disease): Continue his usual maintenance inhalers (9) Depression with anxiety: (10) GERD (gastroesophageal reflux disease): Will resume his Nexium at home holding his Carafate as it may be binding some of his cardiac medications reducing the efficacy (11) Obstructive sleep apnea: Patient reports not wearing CPAP at home. (12) Melena: Noted by patient. Hemoglobin is been stable (13) Microcytic anemia: Iron sats 10% however his hemoglobin has been stable we will not arrange for an iron infusion at this point time recommend dietary intake Total Time Total Time Spent Total Time Spent (In Minutes): It required greater than 30 minutes to prepare this patient for discharge Discharge Plan Discharge Items Patient Disposition: Home - Home Health Services Reason For Visit: CHF EXACERBATION,MELENA,ABDOMINAL PAIN Discharge Diagnosis: acute on chronic systolic heart failure (HFrEF) cough with blood( hemoptysis) Activity: Resume your previous activity Non-emergency contact: Primary Care Provider and Health Screener Call non-emergency contact if: you have any medication questions and your symptoms worsen Follow-up/Referrals: Alejandra Couch CRNP, MS, DOCTOR CHIROPRACTIC-C [Primary Care Provider] - (ALEJANDRA COUCH'S OFFICE WILL CALL PATIENT WITH APPT.) Shyanne Stern PA-C [Physician Cuff Maker] - 08/05/19 2:45 pm (you are scheduled for a folow up appointment with cardiology. if you are unable to keep this appointment please call the office to reschedule) Diet: Low Sodium (2gm) Addtl Attending Provider Instructions: You are being discharged at your request, your heart failure is not yet completely resolved. Please limit your fluid intake to less than 2000 ml (64 oz) a day and follow up with your [facility] heart failure clinic please stop your carafate it maybe interfering with some of your other medications we have increased your torsemide and stopped your bumex at time of discharge but you may have further medication adjustments by your platform stapler in the upcoming days Call 911 and go to the Emergency Room if: * You have tightness or pain in your chest that does not go away with rest or Nitroglycerin * You are very short of breath even with rest Call your doctor if any of the following symptoms or problems start or get worse: * Shortness of breath or difficulty breathing * Wake up at night short of breath * Chest pain * Cough * Swelling of your hands, fee, or legs * More fatigued or tired with your normal activity * Palpitations - sudden fast heart beats WEIGHT * Weigh yourself every morning after using the bathroom. * Use the same scale. * Wear the same amount of clothing. * Write your weight down on your chart. * Call your doctor if you gain more than 2-3 pounds in 1-2 days. MEDICATIONS * Use this discharge instruction sheet for instructions. * Take your medications at the time your doctor ordered. * Do not skip a dose of your medicines. * If you miss a dose of medicine, take as soon as possible, but DO NOT DOUBLE A DOSE. * Read your medicine information when you get home. * Know all of the side effects of your medicine. * Call your doctor's office if you have any side effects. * Be sure all of your doctors know what medicine and herbs you take (including cold, flu, and herbal medicine). * Pain Medicine: If you do not get relief from your pain, please call your doctor for help. Take the following with you to your follow-up doctor appointments: * Weight Chart * Medication List * List of questions Do not drink excessive alcohol, beer or wine. Pending Studies at Discharge: No Stand-Alone Forms: My [email or web address], Smoking Cessation Medications and DC Order Prescriptions: Continued (DME) lancets [OneTouch Delica Plus Lancet] 30 gauge misc See Dose Instructions .ROUTE .MEDSUPPLY Qty: 400 RF: 3 (DME) OneTouch Verio test strips strip See Dose Instructions .ROUTE .MEDSUPPLY Qty: 400 RF: 3 fluticasone propion-salmeterol [Advair Diskus] 250-50 mcg/dose blister with device 1 puffs INH BID Qty: 60 RF: 2 Trulicity 1.5 mg/0.5 mL pen injector 1.5 mg SQ WE Qty: 2 RF: 5 potassium chloride [K-Tab] 20 mEq tablet extended release 20 meq PO BID RF: 0 albuterol sulfate [Ventolin HFA] 90 mcg/actuation HFA aerosol inhaler 1 puffs INH QID Qty: 18 RF: 2 (DME) Oxygen Home Liters Per Minute See Rx Instructions .ROUTE .MEDSUPPLY Qty: 1 RF: 5 esomeprazole magnesium [Nexium] 20 mg capsule,delayed release(DR/EC) 20 mg PO BID RF: 0 aspirin [Aspirin Low Dose] 81 mg tablet,delayed release (DR/EC) 81 mg PO QAM RF: 0 nitroglycerin [Nitrostat] 0.4 mg tablet, sublingual 0.4 mg sublingual UD PRN (Reason: Chest Pain) RF: 0 spironolactone 25 mg Tablet 25 mg PO QAM Qty: 30 RF: 0 cholecalciferol (vitamin D3) [Vitamin D3] 1,000 unit capsule 2,000 units PO BID RF: 0 Entresto 97-103 mg tablet 1 tab PO BID RF: 0 metolazone 5 mg tablet 5 mg PO MOTH RF: 0 carisoprodol [Soma] 350 mg tablet 350 mg PO HS PRN (Reason: muscle pain) RF: 0 metoprolol succinate [Toprol XL] 200 mg tablet extended release 24 hr 200 mg PO HS RF: 0 Changed torsemide 20 mg tablet 40 mg PO BID Qty: 120 RF: 2 Discontinued ondansetron HCl [Zofran] 8 mg tablet 8 mg PO Q8H Qty: 60 RF: 1 sucralfate [Carafate] 1 gram tablet 1 gm PO BID Qty: 60 RF: 2 bumetanide 1 mg tablet 1 mg PO BID Qty: 60 RF: 2 Discharge Orders: Discharge Order (Routine); Ordered 07/29/19 Ordered By: Shon Gonzalez Admission Data Admit Date/Time: 07/27/19 13:28 Attending Provider: Shon Gonzalez Admit Provider: Migue Laguna Primary Care Provider: Alejandra Couch Other Providers: Migue Laguna Other Interventions: Discharge Summary Assessment (RN) Last Done: 07/29/19 09:25 DC Date/Time DO NOT enter until pt leaves facility: 07/29/19 09:49 Coding Level of Care Code D/C Day Management >30 mins Diagnoses Acute on chronic combined systolic (congestive) and diastolic (congestive) heart failure I50.43 NICM (nonischemic cardiomyopathy) I42.8 Hypertensive emergency I16.1 Tachycardia R00.0 Gastritis K29.70 Cough with hemoptysis R04.[address] Z95.810 COPD (chronic obstructive pulmonary disease) J44.9 COPD type: unspecified COPD Depression with anxiety F41.8 GERD (gastroesophageal reflux disease) K21.9 Esophagitis presence: without esophagitis Obstructive sleep apnea G47.33 Melena K92.1 Microcytic anemia D50.9
== END 2019-07-29 09:49 | disposition home health service (06) ==
LOC: 2S 10:10 → ED 10:10 → SUATTDRO 13:28 → 2S 13:55

== ENCOUNTER 2019-08-28 00:53 | Observation (INO) ==
[2019-08-28] MEDS ORDERED: LEVALBUTEROL TARTRATE 15 GM HFA.AER.AD INH STA (01:01)
[2019-08-28 01:29] LABS: Basophils # (auto) 0.01 K/uL (0-0.2); Basophils % (auto) 0.1 %; Eosinophils % (auto) 0.9 %; Hematocrit (blood only) 39.5 % (42-52); Hemoglobin 13.2 g/dL (14.0-18.0); Immature Granulocytes # (auto) 0.03 K/uL (0.00-0.02); Immature Granulocytes % (auto) 0.3 %; Lymphocytes # (auto) 2.53 K/uL (1.2-3.4); Mean Corpuscular Hemoglobin 26.5 pg (25-34); Mean Corpuscular Hgb Conc 33.4 g/dL (32-36); Mean Corpuscular Volume 79.3 fL (80-100); Mean Platelet Volume 9.9 fL (7.4-10.4); Monocytes # (auto) 0.68 K/uL (0.11-0.59); Monocytes % (auto) 6.5 %; Neutrophils # (auto) 7.18 K/uL (1.4-6.5); Neutrophils % (auto) 68.2 %; Platelet Count 184 K/uL (130-400); RDW Coefficient of Variation 17.1 % (11.5-14.5); RDW Standard Deviation 48.6 fL (36.4-46.3); Red Blood Count 4.98 M/uL (4.7-6.1); White Blood Count 10.53 K/uL (4.8-10.8)
[2019-08-28 01:39] LABS: INR 1.1 (0.9-1.1); Partial Thromboplastin Ratio 1.1; Partial Thromboplastin Time 30.4 Seconds (21.0-31.0); Prothrombin Time 11.8 Seconds (9.0-12.0)
[2019-08-28 01:53] LABS: BUN Creatinine Ratio 12.7 (10-20); Calcium 8.3 mg/dl (8.5-10.1); Creatinine Clr Calc Pharmacy 124.4 ml/min; Est GFR (African American) 93.4; Est GFR (Non-African American) 80.6; Potassium 3.7 mmol/L (3.5-5.1)
[2019-08-28 01:58] LABS: Albumin Globulin Ratio 0.8 (0.9-2); Bilirubin,Total 1.1 mg/dl (0.2-1); Creatine Kinase MB 1.4 ng/ml (0.5-3.6); Globulin 3.9 gm/dl (2.5-4.0); Total Protein 6.9 gm/dl (6.4-8.2); Troponin I 0.032 ng/ml (0-0.045)
[2019-08-28] MEDS ORDERED: FUROSEMIDE 40 MG/4 ML VIAL IV STA (02:03)
[2019-08-28] MEDS ORDERED: DOXYCYCLINE HYCLATE 100 MG in DEXTROSE 5% 100 ML IV STA (02:07)
[2019-08-28 03:11] LABS: iSTAT Arterial Blood Gas HCO3 22 meg/L (19-24); iSTAT Arterial Blood Gas pCO2 40 mmHg (35-46); iSTAT Arterial Blood Gas pH 7.35 (7.35-7.45); iSTAT Arterial Blood Gas pO2 55 mmHg (80-95); iSTAT Carbon Dioxide 23 mmol/L (24-31)
--- NOTE | 2019-08-28 03:46 | History & Physical Report ---
Date of Service August 28, 2019 Assessment & Plan (1) Acute on chronic combined systolic (congestive) and diastolic (congestive) heart failure: Alok Huff is a 43 y/o male with recurring acute on chronic congestive heart failure with numerous admissions for same, Non-ischemic cardiomyopathy, HTN emergency, gastritis, cardiac defribillator in place, DM insulin/oral, MARIELENA, non-compliance, fatty liver, morbid obesity, who presented to [facility] ED for dyspnea. - Appears to be consist to prior acute CHF. - Hypoxia improved with BiPAP. Received Lasix 80mg IV x1 in ED, will add another Lasix 40 mg IV qAM and order CMP to be checked at 7am to monitor renal function/electrolytes. - Continue with home Spironolactone 25mg PO - C/w home entresto, home metolazone, home Toprol XL - Will trend trops, initial negative - NTG SL for chest pain - ECGs for chest pain - I's and O's - daily weights - NPO at current time because requiring BiPAP - POC ABG with pH 7.349, CO2 40.4, Bicarb 22.3. - Received Doxycycline in ED, will defer to day hospitalist team if patient warrants abx. - BP significantly elevated as with prior admissions, this is controlled with diuretics and caused by hypervoluemia. - Telemetry along with pulse ox monitoring - Xopenex duonebs since tachycardic FENGI: NPO, Pepcid 20mg IV qam since NPO, once PO can switch to PO PPI Code: full DVT ppx: SCDs, noted hx of hemoptysis Dispo: Full admit Hypoxia, PCU/tele (2) NICM (nonischemic cardiomyopathy): c/w home meds as noted (3) Tachycardia: will continue with home beta mansoor to help with slowing of rate to allow proper filling times (4) Hypertensive emergency: as noted above (5) Pulmonary edema: as noted above (6) Gastritis: home PPI NF; Pepcid 20mg IV qAM now since NPO and want to limit oral medications Pantoprazole 40mg once able to take PO (7) Cardiac defibrillator in place: noted (8) Dyslipidemia: doesn't appear to be on statin, unsure of prior history regarding this (9) Obstructive sleep apnea: c/w BiPAP for now, saw sleep medicine on 08/14/19 note reviewed, was not currently treating MARIELENA as didn't have machine and had meeting to re-establish care. Noted he was sleping on recliner at that time and couldn't sleep in his hospital bed. BiPAP setting was 19/8 cmH20 from prior optimal setting from most recent titration from 10/08/2018. (10) Hypoxia: 88%, most likely from pulmonary congestion from acute CHF being treated with IV lasix and BiPAP normalized to 98% on BiPAP (11) Confusion: most likely from poor oxygenation, was when was off BiPAP, wonder if there is a component of sedation from his nightime SOMA. is oriented x3, but is obviously appears confused with complex questioning. History of Present Illness Chief Complaint: Dyspnea Primary Care Provider: CM Vargas, MS, LIMB DRIVER-C History Limited by: Acute respiratory distress and confusion. Alok Huff is a 43 y/o male with recurring acute on chronic congestive heart failure with numerous admissions for same, Non-ischemic cardiomyopathy, HTN emergency, gastritis, cardiac defribillator in place, DM insulin/oral, MARIELENA, non- compliance, fatty liver, morbid obesity, who presented to [facility] ED for dyspnea. He notes symptoms started today of shortness of breath that worsened overnight. He does not currently mention any chest pain, abdominal pain, fever, chills. He noted hemoptysis which is chronic for him. He notes he has been taking all of his medications as prescribed. He notes he is a full code. He currently is being placed on BiPAP. He notes he needs to urinate. He received Xopenex inhaler, Lasix 80mg IV and Doxycycline 100mg IV. His CXR was significant for fluid overload. Unable to get recent diet history because of current need for BiPaP and patient appears to struggle with continued question answering off of supplemental oxygen. He is unable to answer complex questioning but is alert and oriented x3. Allergies Allergy/AdvReac Type Severity Reaction Status Date / Time ceftriaxone Allergy Severe SHORTNESS Verified 08/28/19 01:25 OF BREATH lidocaine Allergy Severe SHORTNESS Verified 08/28/19 01:25 OF BREATH, diaphoretic, hives procaine Allergy Severe SHORTNESS Verified 08/28/19 01:25 OF BREATH, diaphoretic, hives amoxicillin Allergy Intermediate HIVES/FACIAL Verified 08/28/19 01:25 SWELLING clavulanic acid Allergy Intermediate HIVES/FACIAL Verified 08/28/19 01:25 SWELLING lisinopril Allergy Intermediate HIVES Verified 08/28/19 01:25 acetaminophen AdvReac Mild NAUSEA Verified 08/28/19 01:25 albuterol AdvReac Mild proair Verified 08/28/19 01:25 "trouble taking breaths" Home Medications Home Medications Medication Instructions Recorded Confirmed Type esomeprazole magnesium 20 mg 20 mg PO BID cap 09/05/18 08/28/19 History capsule,delayed release aspirin 81 mg tablet,delayed 81 mg PO QAM 09/17/18 08/28/19 History release cholecalciferol (vitamin D3) 25 2,000 units PO BID cap 09/17/18 08/28/19 History mcg (1,000 unit) capsule [employer] BiomedicalTouch Delica Plus Lancet 30 #400 ea NS 12/23/18 07/31/19 Rx gauge OneTouch Verio test strips #400 ea NS 12/23/18 07/31/19 Rx potassium chloride 20 mEq 20 meq PO BID 02/25/19 08/28/19 History tablet,extended release albuterol sulfate 90 mcg/actuation 1 puffs INH QID #18 gm 03/26/19 08/28/19 Rx aerosol inhaler sacubitril 97 mg-valsartan 103 mg 1 tab PO BID tab 04/10/19 08/28/19 History tablet nitroglycerin [Nitrostat] 0.4 mg SUBLINGUAL UD PRN 04/24/19 08/28/19 History metolazone 5 mg PO MOTH 04/29/19 08/28/19 History spironolactone 25 mg PO QAM #30 tab 05/07/19 08/28/19 Rx Oxygen Home #1 ea 05/19/19 07/31/19 Rx fluticasone 250 mcg-salmeterol 50 1 puffs INH BID #60 ea 05/23/19 08/28/19 Rx mcg/dose blistr powdr for inhalation dulaglutide 1.5 mg/0.5 mL 1.5 mg SQ WE #2 ml 06/25/19 08/28/19 Rx subcutaneous pen injector carisoprodol [Soma] 350 mg PO HS PRN 07/27/19 08/28/19 History metoprolol succinate [Toprol XL] 200 mg PO HS 07/27/19 08/28/19 History torsemide 40 mg PO BID #120 tab 07/29/19 08/28/19 Rx Past Med/Surg History Medical History (Updated 08/28/19 @ 20:39 by Migue Packer) Dilatation of thoracic aorta Fatty liver Hearing loss of both ears Hypoxia (Inactive) Iliac aneurysm (Inactive) Left-sided weakness Lung nodule (Inactive) NICM (nonischemic cardiomyopathy) Pt admitted for elective ICD. Underwent procedure without any complications monitored over night and discharged home. 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: No Beliefs That Will Affect Care: None marital status: Current Living Situation: Spouse current occupational status: unemployed Other Information That Helps Us Care for You: No Feels Safe at Home: Yes Safety Concerns: Feels Safe At This Time Smoking Status: Never smoker Tobacco Type: cigarettes ; Age Started Using Tobacco: 14 ; Age Quit Using Tobacco: 18 ; Cigarettes Per Day: 40-50 ; Second Hand Exposure: No ; Hx Alcohol Use: Yes Alcohol type: beer and hard liquor Alcohol Intake Frequency: Rarely Hx Substance Use: No Childhood Exposure to Second-Hand Smoke: Yes Dental Care, Regularly: Yes Physical Activity Frequency: Does not Exercise Review of Systems Review of Systems: Unobtainable due to cognitive status (Limited by) Constitutional: no fever and no chills Ear, Nose, Mouth, Throat: no nasal congestion and no epistaxis Respiratory: as per Subjective / HPI Cardiovascular: + edema Gastrointestinal: no abdominal pain, no nausea and no vomiting Integumentary: no rash Physical Exam Constitutional: + acute distress and + morbidly obese appears confused with questioning prior to BiPAP placed while POC ABG was obtained Eyes: PERRL, conjunctivae normal, anicteric sclerae ENMT: Nose: no external nose abnormality Mouth: no lip abnormality Neck: normal visual inspection and trachea midline Respiratory: + tachypneic; + not able to speak in complete sentence Auscultation: + diminished lung sounds, + rales (anterior bases bilaterally) and + abnormal I/E ratio (shortened I/prolonged E) Cardiovascular: distant heart sounds; 2+ pitting edema; well healed surgical scar to left superior mid clavicular chest consistent with defibrillator placement Gastrointestinal (Abdomen): Percussion/Palpation: abdomen nontender, no guarding and abdomen not rigid Musculoskeletal: Head/Neck/Chest: normocephalic and head atraumatic Skin: no rashes, warm and dry Neurologic: drowsy with eyes rolling upward easily arousable, moves all extremities, follows simple commands Psychiatric: Orientation: oriented x 3 Eye Contact: + fair eye contact Insight: + impaired insight Judgement: + impaired judgement Results & Data Results & Data ([facility]) Vital Signs (Past 12 Hours) Vital Signs Temp Pulse Pulse Resp BP BP Pulse Ox 08/28/19 03:00 106 H 19 98 08/28/19 02:31 104 H 26 H 189/135 H 98 08/28/19 02:00 105 H 25 H 165/117 H 98 08/28/19 01:19 96 08/28/19 01:03 36.5 C 106 H 18 191/134 H 88 L Laboratory Results Laboratory Results - last 24 hr 08/28/19 08/28/19 08/28/19 01:21 01:21 01:21 WBC 10.53 RBC 4.98 Hgb 13.2 L Hct 39.5 L MCV 79.3 L MCH 26.5 MCHC 33.4 RDW Std Deviation 48.6 H RDW Coeff of Zoltan 17.1 H Plt Count 184 MPV 9.9 Immature Gran % (Auto) 0.3 Neut % (Auto) 68.2 Lymph % (Auto) 24.0 Peach % (Auto) 6.5 Eos % (Auto) 0.9 Baso % (Auto) 0.1 Neut # (Auto) 7.18 H Lymph # (Auto) 2.53 Peach # (Auto) 0.68 H Eos # (Auto) 0.10 Baso # (Auto) 0.01 Immature Gran # (Auto) 0.03 H PT 11.8 INR 1.1 APTT 30.4 PTT Ratio 1.1 POC pH POC pCO2 POC pO2 POC HCO3 POC Total CO2 POC Base Excess POC ABG O2 Sat Sodium 141 Potassium 3.7 Chloride 111 H Carbon Dioxide 22 Anion Gap 8.0 BUN 14 Creatinine 1.12 Est Cr Clr Drug Dosing 124.4 Est GFR ( Amer) 93.4 Est GFR (Non-Af Amer) 80.6 BUN/Creatinine Ratio 12.7 Glucose 185 H Calcium 8.3 L Total Bilirubin 1.1 H AST 16 ALT 21 Alkaline Phosphatase 92 Total Creatine Kinase 138 CK-MB (CK-2) 1.4 CK/CKMB % Calc 1.0 Troponin I 0.032 NT-Pro-B Natriuret Pep 4553 H Total Protein 6.9 Albumin 3.0 L Globulin 3.9 Albumin/Globulin Ratio 0.8 L Lipase 114 08/28/19 02:54 WBC RBC Hgb Hct MCV MCH MCHC RDW Std Deviation RDW Coeff of Zoltan Plt Count MPV Immature Gran % (Auto) Neut % (Auto) Lymph % (Auto) Peach % (Auto) Eos % (Auto) Baso % (Auto) Neut # (Auto) Lymph # (Auto) Peach # (Auto) Eos # (Auto) Baso # (Auto) Immature Gran # (Auto) PT INR APTT PTT Ratio POC pH 7.35 POC pCO2 40 POC pO2 55 L POC HCO3 22 POC Total CO2 23 L POC Base Excess -3.0 POC ABG O2 Sat 87.0 L Sodium Potassium Chloride Carbon Dioxide Anion Gap BUN Creatinine Est Cr Clr Drug Dosing Est GFR ( Amer) Est GFR (Non-Af Amer) BUN/Creatinine Ratio Glucose Calcium Total Bilirubin AST ALT Alkaline Phosphatase Total Creatine Kinase CK-MB (CK-2) CK/CKMB % Calc Troponin I NT-Pro-B Natriuret Pep Total Protein Albumin Globulin Albumin/Globulin Ratio Lipase Medications Administered Doxycycline Hyclate 100 mg/ (Dextrose) 110 mls @ 50 mls/hr IV NOW STA Stop: 08/28/19 04:18 Last Admin: 08/28/19 02:24 Dose: 50 mls/hr Documented by: [id number] Supervising Physician Co-Signing Physician Notes Attending addendum: I have physically seen this patient, have supervised the medical residents activities, and agree with the H&P unless as otherwise noted. Assessment and Plan: Acute on chronic respiratory failure with hypoxia/acute on chronic combined systolic and diastolic CHF/COPD exacerbation- The patient will be admitted to telemetry for serial cardiac enzymes, serial EKG's, cardiac rhythm monitoring and a 2-D echocardiogram with Dopplers. Given furosemide 80 mg IV in ED along with doxycycline 100 mg IV and Xopenex HFA. Patient decompensated while in the ED, had ABG showing PO2 of 55, and was then placed on BiPAP. Additional dosings of Lasix IV after assessing response to initial dose. This will be his seventh admission this year. CHF exacerbation/AICD/hypertension/nonischemic cardiomyopathy- Continue with current regimen of Entresto, spironolactone, metolazone and metoprolol succinate extended release. Otherwise n.p.o. Additional dosings of Lasix IV after assessment of response to initial dose given in ED COPD exacerbation/cough with hemoptysis- Sputum Gram stain and culture His breathing exacerbations tend to involve hemoptysis. Xopenex nebulizers every 4 hours while awake and every 2 hours as needed Doxycycline 100 mg IV every 12 hours Gastritis- Famotidine 20 mg IV every 12 hours Remainder of orders and notations as noted Resident Activity Tracking Resident Involvement: Resident Care Provided Care Provided: Adult Hospital Medicine (1) Pulmonary edema Chronicity: acute Qualified Code(s): J81.0 - Acute pulmonary edema
[2019-08-28] MEDS ORDERED: POLYETHYLENE (MIRALAX) 17 GM PACK PO PRN (04:54)
[2019-08-28] MEDS ORDERED: NITROGLYCERIN SL 0.4 MG/TAB TAB SL PRN (04:54)
[2019-08-28] MEDS ORDERED: PHARMACY GLYCEMIC MGMT CONSULT STA (04:54)
[2019-08-28] MEDS ORDERED: PHARMACY GLYCEMIC MGMT CONSULT PRN (05:45)
[2019-08-28] MEDS ORDERED: GLUCAGON FOR INJ 1 MG VIAL IM PRN (06:00)
[2019-08-28] MEDS ORDERED: CARBOHYDRATES FOR HYPOGLYCEMIA PO PRN (06:00)
[2019-08-28] MEDS ORDERED: DEXTROSE 50% 50 ML SYRINGE IV PRN (06:00)
[2019-08-28] MEDS ORDERED: GLUCOSE 10 TABS/TUBE PO PRN (06:00)
[2019-08-28] MEDS ORDERED: GLUCOSE 40% GEL 15 GM TUBE PO PRN (06:00)
[2019-08-28] MEDS: INSULIN ASPART 100 UNITS/ML 3 ML PEN SQ SCH ×3 (06:25→19:29)
--- NOTE | 2019-08-28 06:40 | XRay Report ---
XR chest 1V portable CLINICAL HISTORY: Shortness of breath. Chest pain. COMPARISON STUDY: Chest CT May 05, 2019. Chest radiograph July 27, 2019. FINDINGS: A left subclavian pacer is in place. Cardiomegaly is unchanged. There is no pneumothorax. T here are suspected small bilateral pleural effusions. Mild edema is noted. The appearance of chest si milar to prior exam of July 27, 2019. IMPRESSION: 1. No significant change in mild pulmonary edema. 2. Suspected small bilateral pleural effusions. 3. Cardiomegaly. ACT 112: Negative or not required by law. Electronically signed by: Eyad Rosario M.D. 08/28/2019 6:38 AM
[2019-08-28] MEDS ORDERED: XOPENEX/ATROVENT 1.25mg/0.5MG NEB COMBO NEB SCH (07:00)
[2019-08-28] MEDS: LEVALBUTEROL 1.25MG/0.5ML NEB INH SCH ×3 (07:15→20:04)
[2019-08-28] MEDS: IPRATROPIUM BROMIDE NEB SOLN 0.02% 2.5 ML VIAL INH SCH ×3 (07:15→20:04)
[2019-08-28] MEDS ORDERED: INSULIN HUMAN NPH SC SCH (08:00)
[2019-08-28] MEDS: ASPIRIN 81 MG ECTAB PO SCH (08:28)
[2019-08-28] MEDS: SACUBITRIL-VALSARTAN 97-103 MG TAB PO SCH ×2 (08:28→21:16)
[2019-08-28] MEDS: FLUTICASONE/VILANTEROL 200/25MCG 14 PUFFS/INHALER INH SCH (08:28)
[2019-08-28] MEDS: FAMOTIDINE 20 MG in SYRINGE 3 ML IV SCH (08:34)
[2019-08-28] MEDS ORDERED: FUROSEMIDE 40 MG in SYRINGE 0 ML IV SCH (09:00)
[2019-08-28] MEDS ORDERED: FAMOTIDINE 20MG/5ML IV PUSH IV SCH (09:00)
[2019-08-28] MEDS ORDERED: SPIRONOLACTONE 25 MG TAB PO SCH (09:00)
[2019-08-28] MEDS ORDERED: FUROSEMIDE 40 MG/4 ML VIAL IV SCH (09:00)
[2019-08-28] MEDS ORDERED: POTASSIUM CHLORIDE 20 MEQ TABCR PO SCH (09:00)
[2019-08-28] MEDS ORDERED: metOLazone 5 MG TABLET PO SCH (09:00)
[2019-08-28] MEDS: SPIRONOLACTONE 25 MG TAB PO SCH (10:19)
[2019-08-28 10:33] LABS: Albumin Globulin Ratio 0.7 (0.9-2); BUN Creatinine Ratio 12.2 (10-20); Bilirubin,Total 1.4 mg/dl (0.2-1); Calcium 8.1 mg/dl (8.5-10.1); Creatinine Clr Calc Pharmacy 140.3 ml/min; Est GFR (African American) 103.4; Est GFR (Non-African American) 89.2; Globulin 4.1 gm/dl (2.5-4.0); Magnesium 1.6 mg/dl (1.8-2.4); Potassium 3.4 mmol/L (3.5-5.1); Total Protein 7.1 gm/dl (6.4-8.2)
[2019-08-28 10:38] LABS: Troponin I 0.025 ng/ml (0-0.045)
--- NOTE | 2019-08-28 11:48 | Pharmacy Report ---
Glycemic Control Consultation - Date of Service August 28, 2019 - Scope Scope: Glycemic Pharmacist consulted for glycemic control and to write orders per [facility] ED inpatient glycemic control protocol. - Objective Weight: 162.9 kg Accuchecks BSG (last 24hrs): 08/28/19 08/28/19 08/28/19 01:21 04:12 09:55 Glucose 185 H 144 H POC Glucose 183 H Laboratory Data (last 24hrs): 08/28/19 08/28/19 01:21 09:55 Potassium 3.7 3.4 L Carbon Dioxide 22 25 Anion Gap 8.0 8.0 Creatinine 1.12 1.03 Est Cr Clr Drug Dosing 124.4 140.3 - Recent Pertinent Medications Outpatient Anti-diabetic Regimen: * humalog 50/50 - 40 units bid, trulicity (per provider notes 08/05/19) * A1c = 7.8 % 07/28/19 Risk Factors for Insulin Resistance: * Diet: npo - Assessment & Plan Assessment & Plan: ASSESSMENT: * 43 year old admitted with dyspnea and confusion. PMHx significant for CHF, htn, gastritis, cardiac defibrillator, fatty liver, obesity. Type 2 diabetic managed on insulin at home. Pharmacy consulted * Patient known to glycemic service from other admissions / will plan to utilize similar parameters/doses in the past for insulin management PLAN FOR INPATIENT GLYCEMIC CONTROL: * Basal insulin * NPH 8 units BID * Bolus insulin * NovoLog per scale ACHS or Q6hrs while NPO * Goal Range: Low 110 mg/dL - High 140 mg/dL * Correction Factor: 25 mg/dL/unit * Nutritional / Prandial insulin per carb ratio of 1 unit per 9 grams CHO consumed * Please note that the plan above was derived based on current level of insulin resistance and hospital stress. These recommendations are appropriate for inpatient admission only. Plan of care upon discharge will need to be reassessed to avoid potential outpatient hypo/hyperglycemia. Thank you.
[2019-08-28] MEDS: MAGNESIUM SULFATE / D5W 1 GM/100 ML BAG IV SCH ×2 (12:50→14:43)
[2019-08-28] MEDS: POTASSIUM CHLORIDE 20 MEQ TABCR PO SCH ×2 (14:16→21:16)
[2019-08-28] MEDS ORDERED: OPTIRAY 320 125ml IV PRN (15:12)
--- NOTE | 2019-08-28 15:33 | CT Scan Report ---
CT angio chest dissec wo/w con CT DOSE: 3935.68 mGy.cm HISTORY: Dissection known thoracic aneurysm; eval dissection TECHNIQUE: Multiaxial CT images of the chest, abdomen, and pelvis were performed both before and afte r the intravenous administration of contrast to evaluate the aorta. Maximal intensity projection imag es were also obtained. A dose lowering technique was utilized adhering to the principles of ALARA. COMPARISON STUDY: 05/05/2019 FINDINGS: Stable unchanged 4.4 cm dilatation of the ascending thoracic aorta. No evidence for dissect ion. The descending thoracic aorta remains unremarkable. Prominence of the pulmonary arterial structures is unchanged. Slight bilateral interstitial and bronc hovascular prominence. Small stable bilateral pleural effusions. IMPRESSION: 1. Stable dilatation of the ascending thoracic aorta. 2. Current maximum dimension is 4.4 cm essentially unchanged. 3. Small bilateral pleural effusions unchanged with components of congestive failure ACT 112: Negative or not required by law. The above report was generated using voice recognition software. It may contain grammatical, syntax or spelling errors. Electronically signed by: Cleveland Concepcion M.D. 08/28/2019 3:32 PM
--- NOTE | 2019-08-28 15:33 | CT Scan Report ---
CT abd pelvis IV con only CLINICAL HISTORY: Diffuse abdominal pain COMPARISON STUDY: October 18, 2018 TECHNIQUE: The patient was scanned in a dynamic helical fashion during the intravenous administration of 119 cc of Optiray 320 A dose lowering technique was utilized adhering to the principles of ALARA . CT DOSE: FINDINGS: Lower chest: There are small bilateral pleural effusions. There are lower lung lobe groundglass opaci ties. The findings could be secondary to a multifocal pneumonia or edema. Liver: The liver is mildly enlarged. No focal masses are visualized. Gallbladder: Surgically absent Spleen: Mildly enlarged measuring 13.3 cm Pancreas: Unremarkable. Adrenal glands: Unremarkable. Kidneys: There is a bilobed 15 mm right renal hypodensity, likely representing a cyst. Bowel: Portions of the right: Excluded due to the patient's large body habitus which is outside the f ield of view. There are no transition zones indicate bowel obstruction. There is no evidence of acute diverticulitis. There is no evidence of acute appendicitis. Peritoneum: There is no intraperitoneal free air or abdominal ascites. Vasculature: The abdominal aorta is normal in course and caliber. Adenopathy: Iliac chain lymph nodes remaining at the upper limits of normal in size. Pelvic viscera: The bladder, and pelvic viscera are unremarkable. Skeletal structures: There is bilateral L5 spondylolysis. Is a grade 1 spondylolisthesis of L5 and S1 IMPRESSION: 1. No acute intra-abdominal or pelvic findings 2. No evidence of bowel obstruction. No evidence of free air 3. No evidence of acute appendicitis. No evidence of acute diverticulitis. 4. Small bilateral pleural effusions with bibasilar groundglass opacities ACT 112: Negative or not required by law. Electronically signed by: Garrett Muniz M.D. 08/28/2019 3:32 PM
[2019-08-28] MEDS ORDERED: HydrALAZINE HCL 20 MG/ML VIAL IV PRN (17:30)
[2019-08-28 17:31] LABS: Basophils # (auto) 0.03 K/uL (0-0.2); Basophils % (auto) 0.3 %; Eosinophils # (auto) 0.12 K/uL (0-0.5); Eosinophils % (auto) 1.2 %; Hematocrit (blood only) 43.8 % (42-52); Hemoglobin 14.7 g/dL (14.0-18.0); Immature Granulocytes # (auto) 0.03 K/uL (0.00-0.02); Immature Granulocytes % (auto) 0.3 %; Lymphocytes # (auto) 2.18 K/uL (1.2-3.4); Lymphocytes % (auto) 21.2 %; Mean Corpuscular Hemoglobin 26.6 pg (25-34); Mean Corpuscular Volume 79.2 fL (80-100); Mean Platelet Volume 10.1 fL (7.4-10.4); Monocytes # (auto) 0.76 K/uL (0.11-0.59); Monocytes % (auto) 7.4 %; Neutrophils # (auto) 7.16 K/uL (1.4-6.5); Neutrophils % (auto) 69.6 %; Platelet Count 185 K/uL (130-400); RDW Coefficient of Variation 17.2 % (11.5-14.5); RDW Standard Deviation 48.4 fL (36.4-46.3); Red Blood Count 5.53 M/uL (4.7-6.1); White Blood Count 10.28 K/uL (4.8-10.8)
--- NOTE | 2019-08-28 17:40 | Critical Care Consultation ---
Date of Consultation August 28, 2019 Assessment & Plan (1) Confusion: Impression: 43-year-old male with multiple medical issues including morbid obesity, nonalcoholic steatohepatitis, and severe sleep disordered breathing, cardiomyopathy, and medical noncompliance admitted with exacerbation of heart failure and fluid overload. He was brought to the ICU due to altered sensorium which has resolved. Metabolically there does not appear to be an acute explanation for his symptoms. Certainly hypertensive urgency and posterior reversible encephalopathy (press syndrome) would be on the differential. He appears to be back to baseline currently. Recommendations: 1. Continue aggressive blood pressure control currently. Will use hydralazine in addition to his oral medications to try and keep blood pressure down around 1 20-1 30 systolic. 2. Continue aggressive diuretics. 3. The patient's hospitalist is currently talking to neurology to see whether or not an EEG is warranted to rule out seizure activity. Will defer to them as to whether or not DATASTAGE DEVELOPER imaging is performed although again his exam currently is nonfocal. I do not feel this is urgent enough to require antiepileptic m edications currently. 4. Morbid obesity: Exercise and weight loss recommended. 5. Sleep disordered breathing: The patient is suboptimally treated. It appears that his last optimal settings were 19/9 centimeters of water. You supposed be following up with the sleep clinic at [facility]. We will continue BiPAP 19/9 overnight and reassess in the morning. 6. Questionable abdominal cellulitis: I do not see an elevation in white blood cell count or fevers and would hold antibiotics for now unless the primary admitting service feel strongly about treating. Continue to trend labs. We will see how the patient does overnight but I anticipate that he should do reasonably well and potentially be eligible to return to the floor in the morning. Case was discussed with the ICU nurse at bedside as well as with the attending hospitalist. (2) Tachycardia: (3) NICM (nonischemic cardiomyopathy): (4) Hypoxia: History of Present Illness Attending Physician: Migue Packer History of Present Illness Asked by hospitalist to assist in management of this patient with altered level of consciousness and hypoxemic respiratory failure. History is obtained from discussion with the hospitalist as well as review the electronic medical record. The patient is on full face BiPAP and has an underlying history of cognitive dysfunction so history from him is somewhat difficult. Patient is a 43-year-old morbidly obese male with a history of noncompliance. He has poorly controlled diabetes as well as poorly controlled heart failure and is in and out of the hospital quite frequently with exacerbations of CHF. He has a defibrillator. He was admitted early this morning with exacerbation of heart failure. He was treated with diuretics. He complained of diffuse pain f rom his ears down to his lower pelvis. He had CT angiogram as well as CT of his abdomen pelvis performed which was unrevealing. Laboratory studies were not particularly conclusive. He was apparently being reassessed when he "went out". The admitting hospitalist was at bedside and apparently the patient became unresponsive. Blood gas was acceptable. Heart rate and blood pressure remained tachycardic and hypertensive and oxygen saturations were adequate. No evidence of hypercarbic respiratory failure. He was brought to the intensive care unit. I arrived to evaluate the patient and found him awake and conversant. His oxygen requirement is now been decreased down to room air and he continues to use BiPAP. Patient has had bronchoscopies in the past for hemoptysis likely related to he art failure. He has been dismissed from the [facility] heart failure clinic due to noncompliance and is currently followed at [facility]. He has a history of severe sleep disordered breathing and is followed at the [facility] sleep clinic as well. He had a pulmonary evaluation performed there last month. Allergies Allergy/AdvReac Type Severity Reaction Status Date / Time ceftriaxone Allergy Severe SHORTNESS Verified 08/28/19 01:25 OF BREATH lidocaine Allergy Severe SHORTNESS Verified 08/28/19 01:25 OF BREATH, diaphoretic, hives procaine Allergy Severe SHORTNESS Verified 08/28/19 01:25 OF BREATH, diaphoretic, hives amoxicillin Allergy Intermediate HIVES/FACIAL Verified 08/28/19 01:25 SWELLING clavulanic acid Allergy Intermediate HIVES/FACIAL Verified 08/28/19 01:25 SWELLING lisinopril Allergy Intermediate HIVES Verified 08/28/19 01:25 acetaminophen AdvReac Mild NAUSEA Verified 08/28/19 01:25 albuterol AdvReac Mild proair Verified 08/28/19 01:25 "trouble taking breaths" Home Medications Home Medications Medication Instructions Recorded Confirmed Type esomeprazole magnesium 20 mg 20 mg PO BID cap 09/05/18 08/28/19 History capsule,delayed release aspirin 81 mg tablet,delayed 81 mg PO QAM 09/17/18 08/28/19 History release cholecalciferol (vitamin D3) 25 2,000 units PO BID cap 09/17/18 08/28/19 History mcg (1,000 unit) capsule OneTouch Delica Plus Lancet 30 #400 ea NS 12/23/18 07/31/19 Rx gauge OneTouch Verio test strips #400 ea NS 12/23/18 07/31/19 Rx potassium chloride 20 mEq 20 meq PO BID 02/25/19 08/28/19 History tablet,extended release albuterol sulfate 90 mcg/actuation 1 puffs INH QID #18 gm 03/26/19 08/28/19 Rx aerosol inhaler sacubitril 97 mg-valsartan 103 mg 1 tab PO BID tab 04/10/19 08/28/19 History tablet nitroglycerin [Nitrostat] 0.4 mg SUBLINGUAL UD PRN 04/24/19 08/28/19 History metolazone 5 mg PO MOTH 04/29/19 08/28/19 History spironolactone 25 mg PO QAM #30 tab 05/07/19 08/28/19 Rx Oxygen Home #1 ea 05/19/19 07/31/19 Rx fluticasone 250 mcg-salmeterol 50 1 puffs INH BID #60 ea 05/23/19 08/28/19 Rx mcg/dose blistr powdr for inhalation dulaglutide 1.5 mg/0.5 mL 1.5 mg SQ WE #2 ml 06/25/19 08/28/19 Rx subcutaneous pen injector carisoprodol [Soma] 350 mg PO HS PRN 07/27/19 08/28/19 History metoprolol succinate [Toprol XL] 200 mg PO HS 07/27/19 08/28/19 History torsemide 40 mg PO BID #120 tab 07/29/19 08/28/19 Rx Patient History Medical History (Updated 08/28/19 @ 03:28 by Kye García DO) Dilatation of thoracic aorta (Inactive) Fatty liver Hearing loss of both ears Hypoxia (Inactive) Iliac aneurysm (Inactive) Left-sided weakness Lung nodule (Inactive) NICM (nonischemic cardiomyopathy) Pt admitted for elective ICD. Underwent procedure without any complications monitored over night and discharged home. SOB (shortness of breath) (Inactive) Umbilical hernia (Inactive) Vitamin D insufficiency Previously deficient, taking Vit D supplementation Social History Preferred Language: [place]er Communication Ability: Effective Visual Impairment: No Limitations Hearing Ability: Normal Building Engineer Required: No Beliefs That Will Affect Care: None marital status: Current Living Situation: Spouse current occupational status: unemployed Other Information That Helps Us Care for You: No Feels Safe at Home: Yes Safety Concerns: Feels Safe At This Time Smoking Status: Never smoker Tobacco Type: cigarettes ; Age Started Using Tobacco: 14 ; Age Quit Using Tobacco: 18 ; Cigarettes Per Day: 40-50 ; Second Hand Exposure: No ; Hx Alcohol Use: Yes Alcohol type: beer and hard liquor Alcohol Intake Frequency: Rarely Hx Substance Use: No Childhood Exposure to Second-Hand Smoke: Yes Dental Care, Regularly: Yes Physical Activity Frequency: Does not Exercise Review of Systems Review of Systems: Limited due to the patient being on full face BiPAP. Please refer to admission H&P Physical Exam Constitutional: + acute distress and + morbidly obese appears confused with questioning prior to BiPAP placed while POC ABG was obtained Eyes: PERRL, conjunctivae normal, anicteric sclerae ENMT: Nose: no external nose abnormality Mouth: no lip abnormality Neck: normal visual inspection and trachea midline Respiratory: + tachypneic; + not able to speak in complete sentence Auscultation: + diminished lung sounds, + rales (anterior bases bilaterally) and + abnormal I/E ratio (shortened I/prolonged E) Cardiovascular: distant heart sounds; 2+ pitting edema; well healed surgical scar to left superior mid clavicular chest consistent with defibrillator placement Gastrointestinal (Abdomen): Percussion/Palpation: abdomen nontender, no guarding and abdomen not rigid Musculoskeletal: Head/Neck/Chest: normocephalic and head atraumatic Skin: no rashes, warm and dry Neurologic: drowsy with eyes rolling upward easily arousable, moves all extremities, follows simple commands Psychiatric: Orientation: oriented x 3 Eye Contact: + fair eye contact Insight: + impaired insight Judgement: + impaired judgement Results & Data Results & Data ([facility]) Vital Signs (Past 12 Hours) Vital Signs Temp Pulse Pulse Pulse Resp BP BP 08/28/19 16:00 103 H 08/28/19 13:12 83 20 08/28/19 13:09 36.5 C 51 L 20 156/103 H 08/28/19 11:50 97 H 19 08/28/19 07:57 37 C 95 H 20 165/115 H 08/28/19 07:15 103 H 103 H 22 08/28/19 07:00 98 H Pulse Ox 08/28/19 16:00 08/28/19 13:12 96 08/28/19 13:09 96 08/28/19 11:50 98 08/28/19 07:57 96 08/28/19 07:15 98 08/28/19 07:00 Laboratory Results 08/28/19 17:12 Blood gas showed a pH 7.35 with PCO2 of 40 and a PO2 of 55. Chemistry panel with a sodium 144 potassium 3.4 chloride 111 bicarb 25 BUN 13 creatinine 1.03 and glucose of 144. Repeat chemistry panel pending. Magnesium 1.6 and calcium is 8.1. Liver function tests unremarkable with the exception of a mildly elevated total bili at 1.4. Alk phos was normal. [place] [address] of the chest was independently reviewed. There are some faint groundglass opacities at the bases with bilateral pleural effusions. Few nodular densities are identified. Cardiomegaly again seen. Coding Level of Care Code 75690 Office/OBS Consult Lvl 4 Diagnoses Confusion R41.0 Tachycardia R00.0 NICM (nonischemic cardiomyopathy) I42.8 Hypoxia R09.02
[2019-08-28 17:49] LABS: Calcium 8.8 mg/dl (8.5-10.1); Creatinine Clr Calc Pharmacy 130.2 ml/min; Est GFR (African American) 94.4; Est GFR (Non-African American) 81.5; Magnesium 2.3 mg/dl (1.8-2.4); Potassium 3.8 mmol/L (3.5-5.1)
[2019-08-28 17:50] LABS: Mean Corpuscular Hgb Conc 33.6 g/dL (32-36)
--- NOTE | 2019-08-28 17:50 | XRay Report ---
XR chest 1V portable CLINICAL HISTORY: Respiratory arrest COMPARISON STUDY: 08/28/2019 FINDINGS: The heart is enlarged. There is a left subclavian central venous pacemaker/defibrillator. T here is improvement in the previously described pulmonary edema. There is no focal pulmonary consolid ation.[ IMPRESSION: Significant improvement in the previously identified pulmonary edema. Persistent cardiome moiz. No evidence of focal pulmonary consolidation ACT 112: Negative or not required by law. Electronically signed by: Garrett Muniz M.D. 08/28/2019 5:48 PM
--- NOTE | 2019-08-28 18:58 | Electrocardiogram Report ---
Test Reason : Blood Pressure : / mmHG Vent. Rate : 116 BPM Atrial Rate : 116 BPM P-R Int : 152 ms QRS Dur : 104 ms QT Int : 340 ms P-R-T Axes : 036 -15 097 degrees QTc Int : 472 ms Sinus tachycardia Possible Left atrial enlargement Abnormal ECG When compared with ECG of 27-JUL-2019 10:16, QRS axis Shifted right Confirmed by Bertrand Polanco ([id number]) on 08/28/2019 6:58:23 PM Referred By: REFERRED SELF Confirmed By:Severiano Polanco
[2019-08-28] MEDS: INSULIN HUMAN NPH SC SCH (19:52)
[2019-08-28] MEDS: FUROSEMIDE 40 MG in SYRINGE 0 ML IV SCH (19:55)
--- NOTE | 2019-08-28 20:29 | Hospitalist Progress Note ---
Date of Service August 28, 2019 Assessment & Plan (1) Loss of consciousness for less than 30 minutes: episode of seizure vs syncope leading to richelle roberts being called. loss of consciousness was about 20 minutes. BSG was wnl. no obvious dysrhythmia on monitor although there was a lapse in his telemetry during the event - will obtain formal ICD/pacer interrogation. ammonia and prolactin wnl. lactate wnl. plan - * spoke with Dr Alonzo from neurology who will consult in am * CT head tonight * EEG in am * monitor (2) Acute and chronic respiratory failure with hypoxia: acute component - at minimum has decompensated CHF. uncertain if any element of acute infectious process of the lungs is present. CT yesterday at [facility] suggested pneumonitis. CT chest today at [facility] without such however. check sed rate and crp. defer infectious work-up of lungs to pulmonary/CC. need for COVID-19 testing? continue to diurese. chronic resp failure - likely obesity-hypoventilation syndrome. (3) Acute on chronic combined systolic (congestive) and diastolic (congestive) heart failure: continue to diurese with lasix 40mg IV BID. metazolone twice weekly. increase aldactone to 50mg daily. decompensation likely noncompliance with outpatient regimen of meds. cont BB, entresto. previous echo with EF <30%, nonischemic in nature. (4) Diabetic peripheral neuropathy associated with type 2 diabetes mellitus: cont basal-bolus insulin regimen - defer to pharmacy for management (5) Cardiac defibrillator in place: interrogation requested due to loss of consciousness spell today (6) Cough with hemoptysis: on previous admissions the patient has complained of this. he has had a bronch in the last year that was normal. has had numerous CTs and chest x-rays. could be 2nd to pulmonary edema. nothing ominous on chest CT today. (7) Morbid obesity: BMI 54 (8) Obstructive sleep apnea: noncompliant with PPV at home (9) Dyslipidemia: (10) GERD (gastroesophageal reflux disease): cont H2 [place] (11) Depression with anxiety: not on meds (12) Dilatation of thoracic aorta: stable on chest CT today no dissection no rupture (13) DVT prophylaxis: add heparin 7500 units TID (due to massive morbid obesity) critical care time about 60 minutes today over 2 bedside visits patient transferred to ICU following richelle roberts care d/w Dr Hernandez from pulmonary/CC Admission and Anticipated Discharge Date Admission Date: August 28, 2019 Subjective multiple visits to pt's room today. first was on AM rounds. Alok was resting in bed with BiPAP in place. he looked uncomfortable, had glazed look on eyes, was breathing rapidly. he stated he didn't feel well. he c/o back pain, chest pain and abdominal pain. when asked to point to the location where it was the worst he pointed to the lower chest and abdomen. he mentioned he had a chest CT at [facility] yesterday but couldn't tell me what results were. staff report copious diuresis this AM. chest CT report was obtained from [facility] from 08/26 -- this showed numerous ill-defined nodules and nodular opacities. infectious vs inflammatory vs mets vs other. I elected to obtain CT chest dissection protocol because of known h/o thoracic aortic aneurysm. I also obtained abdominal CT because of abdominal pain. Chest CT showed stable aneurysm and without dissection. Abdominal CT showed no findings. I went back to his room mid-afternoon. He was similar to the morning - reported feeling unwell, again c/o pain in chest and abdomen. I told him that I was concerned he had infection - perhaps lungs - and recommended COVID-19 test. Pt's nurse was present during this conversation. While talking with him (he had been answering questions) the pt's eyes rolled back, then he stared for about 1 minute, then became unresponsive. He never lost a pulse and was spontaneously breathing the entire time. iRchelle roberts was called. During the code he had mild eye fluttering (very brief) and fleeting twitching of his distal arms but no tonic-clonic movements. He seemed sweaty. Initial rhythm on monitor was sinus tach. monitor room stated he never had dysrhythmia during the event. BSG was >100. ISTAT with normal pH and normal pCO2. Patient then transferred to ICU. About 5-10 minutes after arrival in ICU the patient finally awoke. In all was unresponsive for at least 20 minutes. After waking he reported "passing out" in the past - perhaps 4-5 other times. Review of Systems Constitutional: no fever Respiratory: + cough, + dyspnea, + dyspnea on exertion and + hemoptysis Cardiovascular: + chest pain, + orthopnea and + edema Gastrointestinal: + abdominal pain, + nausea and + vomiting; no diarrhea/loose stools Genitourinary: no dysuria Integumentary: no rash Physical Exam Constitutional: + acute distress (tachypnea) and + morbidly obese; no altered mental status Eyes: PERRL ENMT: external ear and nose normal, oropharynx normal Respiratory: + respiratory distress and + tachypneic Auscultation: + crackles; no wheezes Cardiovascular: Rate/Rhythm: regular rate and regular rhythm Heart Sounds: normal S1 and normal S2; no murmur Vessels: posterior tibial pulses present and dorsalis pedis pulses present; no JVD (unable to assess due to neck size ) Extremities: + edema (1-2+ b/l ) Gastrointestinal (Abdomen): Inspection/Auscultation: + abdomen distended and normal bowel sounds Percussion/Palpation: + abdomen tender (diffuse ) and + guarding (voluntary??) Skin: erythema of lower abdominal wall, warm to touch Psychiatric: Orientation: alert Results & Data Results & Data ([facility]) Vital Signs (Past 12 Hours) Vital Signs Temp Pulse Pulse Pulse Resp BP BP 08/28/19 20:11 94 H 24 08/28/19 20:10 86 24 08/28/19 19:00 37 C 86 86 24 143/91 H 143/91 H 08/28/19 16:00 103 H 08/28/19 15:00 103 H 20 08/28/19 13:12 83 20 08/28/19 13:09 36.5 C 51 L 20 156/103 H 08/28/19 11:50 97 H 19 Pulse Ox 08/28/19 20:11 99 08/28/19 20:10 99 08/28/19 19:00 98 08/28/19 16:00 08/28/19 15:00 96 08/28/19 13:12 96 08/28/19 13:09 96 08/28/19 11:50 98 Laboratory Results Laboratory Results - last 24 hr 08/28/19 08/28/19 08/28/19 01:21 01:21 01:21 WBC 10.53 RBC 4.98 Hgb 13.2 L Hct 39.5 L MCV 79.3 L MCH 26.5 MCHC 33.4 RDW Std Deviation 48.6 H RDW Coeff of Zoltan 17.1 H Plt Count 184 MPV 9.9 Immature Gran % (Auto) 0.3 Neut % (Auto) 68.2 Lymph % (Auto) 24.0 Robertson % (Auto) 6.5 Eos % (Auto) 0.9 Baso % (Auto) 0.1 Neut # (Auto) 7.18 H Lymph # (Auto) 2.53 Robertson # (Auto) 0.68 H Eos # (Auto) 0.10 Baso # (Auto) 0.01 Immature Gran # (Auto) 0.03 H ESR PT 11.8 INR 1.1 APTT 30.4 PTT Ratio 1.1 POC pH POC pCO2 POC pO2 POC HCO3 POC Total CO2 POC Base Excess POC ABG O2 Sat Sodium 141 Potassium 3.7 Chloride 111 H Carbon Dioxide 22 Anion Gap 8.0 BUN 14 Creatinine 1.12 Est Cr Clr Drug Dosing 124.4 Est GFR ( Amer) 93.4 Est GFR (Non-Af Amer) 80.6 BUN/Creatinine Ratio 12.7 Glucose 185 H POC Glucose Fasting Glucose Lactate Calcium 8.3 L Magnesium Total Bilirubin 1.1 H AST 16 ALT 21 Alkaline Phosphatase 92 Ammonia Total Creatine Kinase 138 CK-MB (CK-2) 1.4 CK/CKMB % Calc 1.0 Troponin I 0.032 NT-Pro-B Natriuret Pep 4553 H Total Protein 6.9 Albumin 3.0 L Globulin 3.9 Albumin/Globulin Ratio 0.8 L Lipase 114 Prolactin 08/28/19 08/28/19 08/28/19 01:21 02:54 04:12 WBC RBC Hgb Hct MCV MCH MCHC RDW Std Deviation RDW Coeff of Zoltan Plt Count MPV Immature Gran % (Auto) Neut % (Auto) Lymph % (Auto) Robertson % (Auto) Eos % (Auto) Baso % (Auto) Neut # (Auto) Lymph # (Auto) Robertson # (Auto) Eos # (Auto) Baso # (Auto) Immature Gran # (Auto) ESR PT INR APTT PTT Ratio POC pH 7.35 POC pCO2 40 POC pO2 55 L POC HCO3 22 POC Total CO2 23 L POC Base Excess -3.0 POC ABG O2 Sat 87.0 L Sodium Potassium Chloride Carbon Dioxide Anion Gap BUN Creatinine Est Cr Clr Drug Dosing Est GFR ( Amer) Est GFR (Non-Af Amer) BUN/Creatinine Ratio Glucose POC Glucose 183 H Fasting Glucose Lactate Calcium Magnesium Total Bilirubin AST ALT Alkaline Phosphatase Ammonia Total Creatine Kinase CK-MB (CK-2) CK/CKMB % Calc Troponin I NT-Pro-B Natriuret Pep Total Protein Albumin Globulin Albumin/Globulin Ratio Lipase Prolactin 10.14 08/28/19 08/28/19 08/28/19 09:55 12:56 17:02 WBC RBC Hgb Hct MCV MCH MCHC RDW Std Deviation RDW Coeff of Zoltan Plt Count MPV Immature Gran % (Auto) Neut % (Auto) Lymph % (Auto) Robertson % (Auto) Eos % (Auto) Baso % (Auto) Neut # (Auto) Lymph # (Auto) Robertson # (Auto) Eos # (Auto) Baso # (Auto) Immature Gran # (Auto) ESR PT INR APTT PTT Ratio POC pH POC pCO2 POC pO2 POC HCO3 POC Total CO2 POC Base Excess POC ABG O2 Sat Sodium 144 Potassium 3.4 L Chloride 111 H Carbon Dioxide 25 Anion Gap 8.0 BUN 13 Creatinine 1.03 Est Cr Clr Drug Dosing 140.3 Est GFR ( Amer) 103.4 Est GFR (Non-Af Amer) 89.2 BUN/Creatinine Ratio 12.2 Glucose 144 H POC Glucose 130 H 132 H Fasting Glucose Lactate Calcium 8.1 L Magnesium 1.6 L Total Bilirubin 1.4 H AST 14 L ALT 22 Alkaline Phosphatase 98 Ammonia Total Creatine Kinase CK-MB (CK-2) CK/CKMB % Calc Troponin I 0.025 NT-Pro-B Natriuret Pep Total Protein 7.1 Albumin 3.0 L Globulin 4.1 H Albumin/Globulin Ratio 0.7 L Lipase Prolactin 08/28/19 08/28/19 08/28/19 17:12 17:12 17:12 WBC 10.28 RBC 5.53 Hgb 14.7 Hct 43.8 MCV 79.2 L MCH 26.6 MCHC 33.6 RDW Std Deviation 48.4 H RDW Coeff of Zoltan 17.2 H Plt Count 185 MPV 10.1 Immature Gran % (Auto) 0.3 Neut % (Auto) 69.6 Lymph % (Auto) 21.2 Robertson % (Auto) 7.4 Eos % (Auto) 1.2 Baso % (Auto) 0.3 Neut # (Auto) 7.16 H Lymph # (Auto) 2.18 Robertson # (Auto) 0.76 H Eos # (Auto) 0.12 Baso # (Auto) 0.03 Immature Gran # (Auto) 0.03 H ESR 27 H PT INR APTT PTT Ratio POC pH POC pCO2 POC pO2 POC HCO3 POC Total CO2 POC Base Excess POC ABG O2 Sat Sodium 140 Potassium 3.8 Chloride 107 Carbon Dioxide 27 Anion Gap 6.0 BUN 11 Creatinine 1.11 Est Cr Clr Drug Dosing 130.2 Est GFR ( Amer) 94.4 Est GFR (Non-Af Amer) 81.5 BUN/Creatinine Ratio Glucose POC Glucose Fasting Glucose 123 H Lactate Calcium 8.8 Magnesium 2.3 Total Bilirubin AST ALT Alkaline Phosphatase Ammonia Total Creatine Kinase CK-MB (CK-2) CK/CKMB % Calc Troponin I NT-Pro-B Natriuret Pep Total Protein Albumin Globulin Albumin/Globulin Ratio Lipase Prolactin 08/28/19 08/28/19 08/28/19 17:12 17:12 19:12 WBC RBC Hgb Hct MCV MCH MCHC RDW Std Deviation RDW Coeff of Zoltan Plt Count MPV Immature Gran % (Auto) Neut % (Auto) Lymph % (Auto) Robertson % (Auto) Eos % (Auto) Baso % (Auto) Neut # (Auto) Lymph # (Auto) Robertson # (Auto) Eos # (Auto) Baso # (Auto) Immature Gran # (Auto) ESR PT INR APTT PTT Ratio POC pH POC pCO2 POC pO2 POC HCO3 POC Total CO2 POC Base Excess POC ABG O2 Sat Sodium Potassium Chloride Carbon Dioxide Anion Gap BUN Creatinine Est Cr Clr Drug Dosing Est GFR ( Amer) Est GFR (Non-Af Amer) BUN/Creatinine Ratio Glucose POC Glucose 111 H Fasting Glucose Lactate 1.5 Calcium Magnesium Total Bilirubin AST ALT Alkaline Phosphatase Ammonia 24.8 Total Creatine Kinase CK-MB (CK-2) CK/CKMB % Calc Troponin I NT-Pro-B Natriuret Pep Total Protein Albumin Globulin Albumin/Globulin Ratio Lipase Prolactin Diagnostic Findings CT chest dissection protocol - no dissection; thoracic aneurysm stable; ground glass opacities CT abd/pelvis - no acute findings EKG - sinus tach, no ST changes PG Care Time/CCT Total # of Minutes Spent Total Time Spent with Patient: Total time spent is greater than 50% in coordination of care (as documented) at patient's floor/unit and/or counseling patient: Critical Care Time: Yes Total Critical Care Time: 60 Coding Level of Care Code None Diagnoses Loss of consciousness for less than 30 minutes Acute and chronic respiratory failure with hypoxia J96.21 Acute on chronic combined systolic (congestive) and diastolic (congestive) heart failure I50.43 Diabetic peripheral neuropathy associated with type 2 diabetes mellitus E11.[address] Z95.810 Cough with hemoptysis R04.2 Morbid obesity E66.01 Obstructive sleep apnea G47.33 Dyslipidemia E78.5 GERD (gastroesophageal reflux disease) K21.9 Esophagitis presence: without esophagitis Depression with anxiety F41.8 Dilatation of thoracic aorta I77.810 DVT prophylaxis Z29.9 Additional Codes Critical Care Time - Critical Care Time: Yes ([id number]) (1) GERD (gastroesophageal reflux disease) Esophagitis presence: without esophagitis Qualified Code(s): K21.9 - Gastro- esophageal reflux disease without esophagitis
[2019-08-28] MEDS: METOPROLOL SUCC 50MG EXT REL TAB PO SCH (21:16)
[2019-08-28] MEDS: HEPARIN SODIUM (PORCINE) 7,500 UNITS in SYRINGE 0 ML SQ SCH (22:05)
[2019-08-29] MEDS: INSULIN ASPART 100 UNITS/ML 3 ML PEN SQ SCH ×7 (00:08→21:43)
[2019-08-29] MEDS: LEVALBUTEROL 1.25MG/0.5ML NEB INH SCH ×4 (00:32→19:23)
[2019-08-29] MEDS: IPRATROPIUM BROMIDE NEB SOLN 0.02% 2.5 ML VIAL INH SCH ×4 (00:32→19:23)
--- NOTE | 2019-08-29 02:03 | Emergency Department Note ---
History of Present Illness General Chief complaint: Chest Pain Stated complaint: CHEST PAIN/SYNCOPE/POSSIBLE SEIZURE/COUGH Time Seen by Provider: 08/28/19 00:54 Source: patient, EMS, RN notes reviewed and old records reviewed Mode of arrival: EMS History of Present Illness Provider complaint: cough Onset (ago): day(s) 2 Location: chest Radiation: non-radiation Severity: severe Pain Consistency: + colicky Maximum Pain Intensity: 10 Current Pain Intensity: 10 Quality: + aching Relieved By: + immobilization Exacerbated By: + movement Associated symptoms: + cough and + shortness of breath Treatments prior to arrival: none This is a 43-year-old male who presents emergency department complaining of coughing up blood that is been ongoing for the past 2 days. The patient is normally on 4 L of oxygen at home. He is satting 88% here on room air. He describes the pain as a burning sensation with no radiation. He reports exertion makes the pain worse however immobilization makes the pain better. Patient reports he has had similar pain. Home Medications Home Medications Medication Instructions Recorded Confirmed Type esomeprazole magnesium 20 mg 20 mg PO BID cap 09/05/18 08/28/19 History capsule,delayed release aspirin 81 mg tablet,delayed 81 mg PO QAM 09/17/18 08/28/19 History release cholecalciferol (vitamin D3) 25 2,000 units PO BID cap 09/17/18 08/28/19 History mcg (1,000 unit) capsule PassworksTouch Delica Plus Lancet 30 #400 ea NS 12/23/18 07/31/19 Rx gauge OneTouch Verio test strips #400 ea NS 12/23/18 07/31/19 Rx potassium chloride 20 mEq 20 meq PO BID 02/25/19 08/28/19 History tablet,extended release albuterol sulfate 90 mcg/actuation 1 puffs INH QID #18 gm 03/26/19 08/28/19 Rx aerosol inhaler sacubitril 97 mg-valsartan 103 mg 1 tab PO BID tab 04/10/19 08/28/19 History tablet nitroglycerin [Nitrostat] 0.4 mg SUBLINGUAL UD PRN 04/24/19 08/28/19 History metolazone 5 mg PO MOTH 04/29/19 08/28/19 History spironolactone 25 mg PO QAM #30 tab 05/07/19 08/28/19 Rx Oxygen Home #1 ea 05/19/19 07/31/19 Rx fluticasone 250 mcg-salmeterol 50 1 puffs INH BID #60 ea 05/23/19 08/28/19 Rx mcg/dose blistr powdr for inhalation dulaglutide 1.5 mg/0.5 mL 1.5 mg SQ WE #2 ml 06/25/19 08/28/19 Rx subcutaneous pen injector carisoprodol [Soma] 350 mg PO HS PRN 07/27/19 08/28/19 History metoprolol succinate [Toprol XL] 200 mg PO HS 07/27/19 08/28/19 History torsemide 40 mg PO BID #120 tab 07/29/19 08/28/19 Rx Allergies Allergy/AdvReac Type Severity Reaction Status Date / Time ceftriaxone Allergy Severe SHORTNESS Verified 08/28/19 01:25 OF BREATH lidocaine Allergy Severe SHORTNESS Verified 08/28/19 01:25 OF BREATH, diaphoretic, hives procaine Allergy Severe SHORTNESS Verified 08/28/19 01:25 OF BREATH, diaphoretic, hives amoxicillin Allergy Intermediate HIVES/FACIAL Verified 08/28/19 01:25 SWELLING clavulanic acid Allergy Intermediate HIVES/FACIAL Verified 08/28/19 01:25 SWELLING lisinopril Allergy Intermediate HIVES Verified 08/28/19 01:25 acetaminophen AdvReac Mild NAUSEA Verified 08/28/19 01:25 albuterol AdvReac Mild proair Verified 08/28/19 01:25 "trouble taking breaths" Past Med/Surg History Medical History (Updated 08/29/19 @ 06:01 by Kan Pollock MD) Dilatation of thoracic aorta Fatty liver Hearing loss of both ears Hypoxia (Inactive) Iliac aneurysm (Inactive) Left-sided weakness Lung nodule (Inactive) NICM (nonischemic cardiomyopathy) Pt admitted for elective ICD. Underwent procedure without any complications monitored over night and discharged home. SOB (shortness of breath) (Inactive) Umbilical hernia (Inactive) Vitamin D insufficiency Previously deficient, taking Vit D supplementation Surgical History History of carpal tunnel surgery History of cholecystectomy S/P tonsillectomy Social History Preferred Language: Welsh Communication Ability: Effective Visual Impairment: No Limitations Hearing Ability: Normal [employer] Required: No Beliefs That Will Affect Care: None marital status: Current Living Situation: Spouse current occupational status: unemployed Other Information That Helps Us Care for You: No Feels Safe at Home: Yes Safety Concerns: Feels Safe At This Time Smoking Status: Never smoker Tobacco Type: cigarettes ; Age Started Using Tobacco: 14 ; Age Quit Using Tobacco: 18 ; Cigarettes Per Day: 40-50 ; Second Hand Exposure: No ; Hx Alcohol Use: Yes Alcohol type: beer and hard liquor Alcohol Intake Frequency: Rarely Hx Substance Use: No Childhood Exposure to Second-Hand Smoke: Yes Dental Care, Regularly: Yes Physical Activity Frequency: Does not Exercise Physical Exam Vital Signs Vital Signs - 24 hr 08/28/19 02:31 08/28/19 03:00 Pulse Rate 106 H Pulse Rate [Apical] 104 H Respiratory Rate 26 H 19 Respiratory Effort / Characteristics Non-Labored Spontaneous Respiratory Depth Normal Respiratory Pattern Regular Blood Pressure [Right Arm] 189/135 H Blood Pressure Mean [Right Arm] 153 Pulse Oximetry 98 98 Oxygen Delivery Method Nasal Cannula Oxygen Flow Rate 4 Fraction of Inspired Oxygen 40 Course Administered Medications Aspirin (Ecotrin Ectab) 81 mg PO QAM [facility] Stop: 09/27/19 08:59 Last Admin: 08/28/19 08:28 Dose: 81 mg Documented by: [id number] Fluticasone/Vilanterol (Breo Ellipta 200/25 Mcg Inh) 1 puffs INH DAILY [facility] Stop: 09/27/19 08:59 Last Admin: 08/28/19 08:28 Dose: 1 puffs Documented by: [id number] Famotidine 20 mg/ Syringe 5 mls @ 2.5 mls/min IV QAM [facility] Stop: 09/27/19 08:59 Last Admin: 08/28/19 08:34 Dose: 2.5 mls/min Documented by: [id number] Furosemide 40 mg/ Syringe 4 mls @ 4 mls/min IV BID17 [facility] Stop: 09/27/19 16:59 Last Admin: 08/28/19 19:55 Dose: 4 mls/min Documented by: [id number] Heparin Sodium (Porcine) 7,500 (units/ Syringe) 0.75 mls @ 10 mls/min SQ Q8H [facility] Stop: 09/27/19 21:59 Last Admin: 08/28/19 22:05 Dose: 10 mls/min Documented by: [id number] Cosigned by: [id number] Insulin Aspart (Novolog Flexpen) 0 units SQ Q6 [facility]; Protocol Stop: 09/27/19 05:59 Last Admin: 08/29/19 00:08 Dose: Not Given Documented by: [id number] Admin: 08/28/19 19:29 Dose: Not Given Documented by: [id number] Cosigned by: [id number] Admin: 08/28/19 12:57 Dose: Not Given Documented by: [id number] Cosigned by: [id number] Admin: 08/28/19 06:25 Dose: 2 units Documented by: [id number] Cosigned by: [id number] Insulin Human NPH (Novolin N Nph) 0 units SC DAILY@1700 [facility]; Protocol Stop: 09/27/19 16:59 Last Admin: 08/28/19 19:52 Dose: Not Given Documented by: [id number] Ipratropium [place] (Atrovent 0.02% 0.5mg/2.5ml) 0.5 mg INH Q6R [facility] Stop: 09/27/19 06:59 Last Admin: 08/29/19 00:32 Dose: 0.5 mg Documented by: [id number] Admin: 08/28/19 20:04 Dose: 0.5 mg Documented by: [id number] Admin: 08/28/19 13:11 Dose: 0.5 mg Documented by: [id number] Admin: 08/28/19 07:15 Dose: 0.5 mg Documented by: [id number] Levalbuterol HCl (Xopenex 1.25mg/0.5ml Neb) 1.25 mg INH Q6R [facility] Stop: 09/27/19 06:59 Last Admin: 08/29/19 00:32 Dose: 1.25 mg Documented by: [id number] Admin: 08/28/19 20:04 Dose: 1.25 mg Documented by: [id number] Admin: 08/28/19 13:11 Dose: 1.25 mg Documented by: [id number] Admin: 08/28/19 07:15 Dose: 1.25 mg Documented by: [id number] Metolazone (Zaroxolyn) 5 mg PO MoTh@0900 [facility] Stop: 09/27/19 08:59 Last Admin: 08/28/19 08:27 Dose: 5 mg Documented by: [id number] Metoprolol Succinate (Toprol Xl) 200 mg PO HS [facility] Stop: 09/27/19 20:59 Last Admin: 08/28/19 21:16 Dose: 200 mg Documented by: [id number] Potassium Chloride (Klor-Con M20) 40 meq PO TID [facility] Stop: 09/27/19 13:59 Last Admin: 08/28/19 21:16 Dose: 40 meq Documented by: [id number] Admin: 08/28/19 14:16 Dose: 40 meq Documented by: [id number] Sacubitril/Valsartan (Entresto 97/103mg) 1 tab PO BID [facility] Stop: 09/27/19 08:59 Last Admin: 08/28/19 21:16 Dose: 1 tab Documented by: [id number] Admin: 08/28/19 08:28 Dose: 1 tab Documented by: [id number] Spironolactone (Aldactone) 50 mg PO QAM [facility] Stop: 09/27/19 08:59 Last Admin: 08/28/19 10:19 Dose: 25 mg Documented by: [id number] Discontinued Medications Furosemide (Lasix) 80 mg IV NOW STA Stop: 08/28/19 02:04 Last Admin: 08/28/19 02:24 Dose: 80 mg Documented by: [id number] Doxycycline Hyclate 100 mg/ (Dextrose) 110 mls @ 50 mls/hr IV NOW STA Stop: 08/28/19 04:18 Last Infusion: 08/28/19 05:05 Dose: 0 mls/hr Documented by: [id number] Admin: 08/28/19 02:24 Dose: 50 mls/hr Documented by: [id number] Furosemide 40 mg/ Syringe 4 mls @ 4 mls/min IV QAM [facility] Stop: 09/27/19 08:59 Last Admin: 08/28/19 08:34 Dose: 4 mls/min Documented by: [id number] Magnesium Sulfate/Dextrose (Magnesium Sulfate / D5w) 1 gm in 100 mls @ 50 mls/hr IV Q2H [facility] Stop: 08/28/19 15:59 Last Infusion: 08/28/19 17:54 Dose: 0 mls/hr Documented by: [id number] Admin: 08/28/19 14:43 Dose: 50 mls/hr Documented by: [id number] Infusion: 08/28/19 14:43 Dose: 50 mls/hr Documented by: [id number] Admin: 08/28/19 12:50 Dose: 50 mls/hr Documented by: [id number] Insulin Human NPH (Novolin N Nph) 8 units SC BIDM [facility]; Protocol Stop: 09/27/19 07:59 Last Admin: 08/28/19 08:28 Dose: 8 units Documented by: [id number] Cosigned by: [id number] Ioversol (Optiray 320 125ml) 119 ml IV ONCE PRN PRN Reason: Interaction Checking Stop: 09/01/19 15:11 Last Admin: 08/28/19 15:15 Dose: 119 ml Documented by: [id number] Levalbuterol HCl (Xopenex Hfa) 2 puffs INH NOW STA Stop: 08/28/19 01:02 Last Admin: 08/28/19 01:53 Dose: 2 puffs Documented by: [id number] Miscellaneous Information (Consult Glycemic Management Pharmacy) 1 ea N/A NOW STA Stop: 08/28/19 04:55 Last Admin: 08/28/19 05:08 Dose: Not Given Documented by: [id number] Potassium Chloride (Klor-Con M20) 20 meq PO BID [facility] Stop: 09/27/19 08:59 Last Admin: 08/28/19 08:28 Dose: 20 meq Documented by: [id number] Spironolactone (Aldactone) 25 mg PO QAM [facility] Stop: 09/27/19 08:59 Last Admin: 08/28/19 08:28 Dose: 25 mg Documented by: [id number] Medical Decision Making Differential Diagnosis Cardiac ischemia, aortic dissection, pulmonary embolism, pneumothorax, pneumonia, pericarditis, myocarditis, esophageal rupture, GERD, cholecystitis, pancreatitis, musculoskeletal, as well as other pathologies. Medical Records Attestation: I reviewed the patient's medical records. Home Medications Current Medication List: was personally reviewed by me Laboratory Data Attestation: I reviewed the patient's lab results. Result diagrams: 08/29/19 04:58 08/29/19 04:58 Lab Results 08/28/19 08/28/19 08/28/19 Range/Units 01:21 01:21 01:21 WBC 10.53 (4.8-10.8) K/uL RBC 4.98 (4.7-6.1) M/uL Hgb 13.2 L (14.0-18.0) g/dL Hct 39.5 L (42-52) % MCV 79.3 L (80-100) fL MCH 26.5 (25-34) pg MCHC 33.4 (32-36) g/dL RDW Std Deviation 48.6 H (36.4-46.3) fL RDW Coeff of Zoltan 17.1 H (11.5-14.5) % Plt Count 184 (130-400) K/uL MPV 9.9 (7.4-10.4) fL Immature Gran % (Auto) 0.3 % Neut % (Auto) 68.2 % Lymph % (Auto) 24.0 % Wilcox % (Auto) 6.5 % Eos % (Auto) 0.9 % Baso % (Auto) 0.1 % Neut # (Auto) 7.18 H (1.4-6.5) K/uL Lymph # (Auto) 2.53 (1.2-3.4) K/uL Wilcox # (Auto) 0.68 H (0.11-0.59) K/uL Eos # (Auto) 0.10 (0-0.5) K/uL Baso # (Auto) 0.01 (0-0.2) K/uL Immature Gran # (Auto) 0.03 H (0.00-0.02) K/uL PT 11.8 (9.0-12.0) Seconds INR 1.1 (0.9-1.1) APTT 30.4 (21.0-31.0) Seconds PTT Ratio 1.1 POC pH (7.35-7.45) POC pCO2 (35-46) mmHg POC pO2 (80-95) mmHg POC HCO3 (19-24) halie/L POC Total CO2 (24-31) mmol/L POC Base Excess (-9-1.8) halie/L POC ABG O2 Sat (90-95) % Sodium 141 (136-145) mmol/L Potassium 3.7 (3.5-5.1) mmol/L Chloride 111 H (98-107) mmol/L Carbon Dioxide 22 (21-32) mmol/L Anion Gap 8.0 (3-11) BUN 14 (7-18) mg/dl Creatinine 1.12 (0.6-1.4) mg/dl Est Cr Clr Drug Dosing 124.4 ml/min Est GFR ( Amer) 93.4 Est GFR (Non-Af Amer) 80.6 BUN/Creatinine Ratio 12.7 (10-20) Glucose 185 H (70-99) mg/dl Calcium 8.3 L (8.5-10.1) mg/dl Total Bilirubin 1.1 H (0.2-1) mg/dl AST 16 (15-37) U/L ALT 21 (12-78) U/L Alkaline Phosphatase 92 (45-117) U/L Total Creatine Kinase 138 (39-308) U/L CK-MB (CK-2) 1.4 (0.5-3.6) ng/ml CK/CKMB % Calc 1.0 (0-3.0) Troponin I 0.032 (0-0.045) ng/ml NT-Pro-B Natriuret Pep 4553 H (0-450) pg/ml Total Protein 6.9 (6.4-8.2) gm/dl Albumin 3.0 L (3.4-5.0) gm/dl Globulin 3.9 (2.5-4.0) gm/dl Albumin/Globulin Ratio 0.8 L (0.9-2) Lipase 114 (73-393) U/L Prolactin ng/ml 08/28/19 08/28/19 Range/Units 01:21 02:54 WBC (4.8-10.8) K/uL RBC (4.7-6.1) M/uL Hgb (14.0-18.0) g/dL Hct (42-52) % MCV (80-100) fL MCH (25-34) pg MCHC (32-36) g/dL RDW Std Deviation (36.4-46.3) fL RDW Coeff of Zoltan (11.5-14.5) % Plt Count (130-400) K/uL MPV (7.4-10.4) fL Immature Gran % (Auto) % Neut % (Auto) % Lymph % (Auto) % Wilcox % (Auto) % Eos % (Auto) % Baso % (Auto) % Neut # (Auto) (1.4-6.5) K/uL Lymph # (Auto) (1.2-3.4) K/uL Wilcox # (Auto) (0.11-0.59) K/uL Eos # (Auto) (0-0.5) K/uL Baso # (Auto) (0-0.2) K/uL Immature Gran # (Auto) (0.00-0.02) K/uL PT (9.0-12.0) Seconds INR (0.9-1.1) APTT (21.0-31.0) Seconds PTT Ratio POC pH 7.35 (7.35-7.45) POC pCO2 40 (35-46) mmHg POC pO2 55 L (80-95) mmHg POC HCO3 22 (19-24) halie/L POC Total CO2 23 L (24-31) mmol/L POC Base Excess -3.0 (-9-1.8) halie/L POC ABG O2 Sat 87.0 L (90-95) % Sodium (136-145) mmol/L Potassium (3.5-5.1) mmol/L Chloride (98-107) mmol/L Carbon Dioxide (21-32) mmol/L Anion Gap (3-11) BUN (7-18) mg/dl Creatinine (0.6-1.4) mg/dl Est Cr Clr Drug Dosing ml/min Est GFR ( Amer) Est GFR (Non-Af Amer) BUN/Creatinine Ratio (10-20) Glucose (70-99) mg/dl Calcium (8.5-10.1) mg/dl Total Bilirubin (0.2-1) mg/dl AST (15-37) U/L ALT (12-78) U/L Alkaline Phosphatase (45-117) U/L Total Creatine Kinase (39-308) U/L CK-MB (CK-2) (0.5-3.6) ng/ml CK/CKMB % Calc (0-3.0) Troponin I (0-0.045) ng/ml NT-Pro-B Natriuret Pep (0-450) pg/ml Total Protein (6.4-8.2) gm/dl Albumin (3.4-5.0) gm/dl Globulin (2.5-4.0) gm/dl Albumin/Globulin Ratio (0.9-2) Lipase (73-393) U/L Prolactin 10.14 ng/ml Imaging Data Radiologist's Impression: [facility], [place] [phone] XRay Report Patient: HARDIK LOVE Date: 08/28/19 MR#: [id number]: [address] 5 Acct ID:[id number]: Date: 1975City Zip: [place] [address] Age: 43Location: 2S Sex: M Room/Bed: [facility] Att Phy: Noé Jaquez M.D.Diagnosis: HYPOXIA, DYSPNEA Enedina Phy: Alejandra GeronimoNPService Date: 08/28/19 Fam Phy:Interpreting Phy: Eyad Rosario MD Admit Phy: Kye Garcaí DO Ordering Phy: Kan Pollock MD cc: ~ XR chest 1V portable CLINICAL HISTORY: Shortness of breath. Chest pain. COMPARISON STUDY: Chest CT May 05, 2019. Chest radiograph July 27, 2019. FINDINGS: A left subclavian pacer is in place. Cardiomegaly is unchanged. There is no pneumothorax. There are suspected small bilateral pleural effusions. Mild edema is noted. The appearance of chest similar to prior exam of July 27, 2019. IMPRESSION: 1. No significant change in mild pulmonary edema. 2. Suspected small bilateral pleural effusions. 3. Cardiomegaly. ACT 112: Negative or not required by law. Electronically signed by: Eyad Rosario M.D. 08/28/2019 6:38 AM Dictated: 08/28/19636 Transcribed: 08/28/19 06 ECG Data Attestation: I personally reviewed and interpreted this ECG as follows: Indication: chest pain Rate (beats per minute): 116 Rhythm: sinus tachycardia Findings: no ST depression and no ST elevation Comparison ECG Date: from (07/27/2019) Change: no significant change MDM Narrative Patient was seen and evaluated as above in room C5. Review was performed of nursing notes and vital signs. I did review pertinent previous visits and patient history. After obtaining a thorough history and physical examination the above work up was performed. This is a 43-year-old male who presents emergency department complaining of chest pain. Patient appears to be volume overloaded on chest x-ray therefore he was given 80 of Lasix here in the emergency department. He does not have an elevation of his white blood cell count. Due to the patient coughing up blood I did discuss the case with the hospital service who did agree to admit the patient. Patient is in agreement with the treatment plan. While in the department, I personally reevaluated the patient several times and each time the patient was found to be resting comfortably. The patient was educated upon management, educated upon todays findings/results, educated upon importance of follow up from today's visit, educated upon symptoms in which to return, had questions answered prior to discharge, verbalized understanding, and was discharged home in good condition. An order was placed for continuous cardiac monitoring. The monitor shows a rate of 75 with Normal Sinus rhythm. The patient was evaluated during the global COVID-19 pandemic, and that diagnosis was suspected/considered upon their initial presentation. Their evaluation, treatment and testing was consistent with current guidelines for patients who present with complaints or symptoms that may be related to COVID- 19. Impression & Plan Congestive heart failure Discharge Plan Visit Data *Final* Discharge Date/Time: 08/28/19 03:43 Chief Complaint: Chest Pain Stated Complaint: CHEST PAIN/SYNCOPE/POSSIBLE SEIZURE/COUGH Other Complaint: Syncope ED Provider: Kan Pollock Discharge Problem: Congestive heart failure Patient Disposition: Admitted As Inpatient Discharge Instructions Interventions: ED Discharge Assessment Last Done: 08/28/19 03:43 Discharge Problem: Congestive heart failure Qualifiers: Heart failure type: unspecified Heart failure chronicity: unspecified Qualified Code(s): I50.9 - Heart failure, unspecified
--- NOTE | 2019-08-29 02:12 | Billing Data ---
Date of Service August 29, 2019 Coding Level of Care Code 40883 Initial Inpt Care Lvl 3
[2019-08-29 05:06] LABS: Basophils # (auto) 0.02 K/uL (0-0.2); Basophils % (auto) 0.2 %; Eosinophils # (auto) 0.18 K/uL (0-0.5); Hematocrit (blood only) 44.5 % (42-52); Hemoglobin 14.8 g/dL (14.0-18.0); Immature Granulocytes # (auto) 0.02 K/uL (0.00-0.02); Immature Granulocytes % (auto) 0.2 %; Lymphocytes # (auto) 2.22 K/uL (1.2-3.4); Lymphocytes % (auto) 25.1 %; Mean Corpuscular Hemoglobin 26.6 pg (25-34); Mean Corpuscular Hgb Conc 33.3 g/dL (32-36); Mean Platelet Volume 9.7 fL (7.4-10.4); Monocytes # (auto) 0.68 K/uL (0.11-0.59); Monocytes % (auto) 7.7 %; Neutrophils # (auto) 5.73 K/uL (1.4-6.5); Neutrophils % (auto) 64.8 %; Platelet Count 179 K/uL (130-400); RDW Coefficient of Variation 17.3 % (11.5-14.5); RDW Standard Deviation 49.3 fL (36.4-46.3); Red Blood Count 5.56 M/uL (4.7-6.1); White Blood Count 8.85 K/uL (4.8-10.8)
[2019-08-29 05:40] LABS: BUN Creatinine Ratio 11.5 (10-20); Calcium 8.6 mg/dl (8.5-10.1); Creatinine Clr Calc Pharmacy 131.4 ml/min; Est GFR (African American) 95.5; Est GFR (Non-African American) 82.4; Magnesium 1.9 mg/dl (1.8-2.4); Potassium 3.9 mmol/L (3.5-5.1)
[2019-08-29 05:41] LABS: Phosphorus 4.2 mg/dl (2.5-4.9)
[2019-08-29] MEDS: HEPARIN SODIUM (PORCINE) 7,500 UNITS in SYRINGE 0 ML SQ SCH ×3 (06:07→20:34)
--- NOTE | 2019-08-29 08:09 | Critical Care Progress Note ---
Date of Service August 29, 2019 Assessment & Plan (1) Confusion: Impression: 43-year-old male with multiple medical issues including morbid obesity, nonalcoholic steatohepatitis, and severe sleep disordered breathing, cardiomyopathy, and medical noncompliance admitted with exacerbation of heart failure and fluid overload. He was brought to the ICU due to altered sensorium which has resolved. Metabolically there does not appear to be an acute explanation for his symptoms. Certainly hypertensive urgency and posterior reversible encephalopathy (press syndrome) would be on the differential. He appears to be back to baseline currently. He exhibited no recurrent episodes overnight and tolerated BiPAP. Recommendations: 1. Continue aggressive blood pressure control currently. Will use hydralazine in addition to his oral medications to try and keep blood pressure down around 120-130 systolic. Advance diet. Out of bed to chair as tolerated. Defer to primary service as to whether or not PT or OT are required. 2. Continue aggressive diuretics. He is not on a beta-mansoor currently. We will start Coreg at 6.25 mg p.o. twice daily and follow heart rate and blood pressure. Titrate up as tolerated. 3. EEG currently pending as well as formal neurology. Unclear if these ep isodes may have been epileptogenic in nature. Defer to neurology. Holding antiepileptics currently. 4. Morbid obesity: Exercise and weight loss recommended. 5. Sleep disordered breathing: Continue BiPAP 31/10 nightly and follow-up with the [facility] outpatient sleep clinic 6. Questionable abdominal cellulitis: I do not see an elevation in white blood cell count or fevers and would hold antibiotics for now unless the primary admitting service feel strongly about treating. Continue to trend labs. The patient has done well in the ICU and appears appropriate to transfer back to the floor under the care of the hospitalist. Will sign off when he leaves the ICU. Feel free to contact us if we can be of additional assistance. (2) Tachycardia: (3) NICM (nonischemic cardiomyopathy): (4) Hypoxia: Admission and Anticipated Discharge Date Admission Date: August 28, 2019 Subjective Patient seen and examined. EMR reviewed. Discussed on multidisciplinary rounds and with bedside critical care nurse. This morning the patient appears back to his baseline. He reports wanting to eat and take a shower. He was on BiPAP throughout the night. He denies any additional chest pain palpitation or illogical episodes including syncope or presyncope. No fevers chills or productive cough. Review of Systems Review of Systems: All systems reviewed & are unremarkable except as noted in HPI & below Physical Exam Constitutional: + acute distress and + morbidly obese Eyes: PERRL, conjunctivae normal, anicteric sclerae ENMT: Nose: no external nose abnormality Mouth: no lip abnormality Neck: normal visual inspection and trachea midline Respiratory: + tachypneic; + not able to speak in complete sentence Auscultation: + diminished lung sounds, + rales (anterior bases bilaterally) and + abnormal I/E ratio (shortened I/prolonged E) Gastrointestinal (Abdomen): Percussion/Palpation: abdomen nontender, no guarding and abdomen not rigid Musculoskeletal: Head/Neck/Chest: normocephalic and head atraumatic Skin: no rashes, warm and dry Psychiatric: Orientation: oriented x 3 Eye Contact: + fair eye contact Insight: + impaired insight Judgement: + impaired judgement Results & Data Results & Data ([facility]) Vital Signs (Past 12 Hours) Vital Signs Pulse Pulse Pulse Resp BP Pulse Ox Pulse Ox 08/29/19 07:15 75 75 17 100 08/29/19 05:00 75 17 98 08/29/19 04:54 96 08/29/19 04:52 74 17 148/103 H 97 08/29/19 04:37 54 L 16 116/84 99 08/29/19 04:22 72 5 L 120/73 99 08/29/19 04:07 72 17 97/70 L 99 08/29/19 04:00 86 15 08/29/19 03:52 91 H 19 70/63 L 99 08/29/19 03:38 72 23 132/95 99 08/29/19 03:23 88 16 117/102 H 89 L 08/29/19 03:07 74 22 109/74 97 08/29/19 03:00 65 12 98 08/29/19 02:52 78 22 125/86 99 08/29/19 02:36 72 25 H 126/81 98 08/29/19 02:22 77 16 110/84 99 08/29/19 02:07 80 23 119/83 98 08/29/19 02:00 84 25 H 98 08/29/19 01:52 74 15 122/98 99 08/29/19 01:37 83 15 127/92 98 08/29/19 01:21 70 23 134/85 97 08/29/19 01:07 80 20 129/87 98 08/29/19 01:00 85 19 99 08/29/19 00:52 79 23 142/110 H 98 08/29/19 00:37 77 18 129/83 99 08/29/19 00:32 75 20 98 08/29/19 00:22 79 24 123/90 97 08/29/19 00:00 74 22 97 08/28/19 23:51 73 21 120/74 98 08/28/19 23:45 69 16 98 08/28/19 23:37 83 22 122/80 98 08/28/19 23:21 78 27 H 134/85 98 08/28/19 23:06 84 21 136/94 97 08/28/19 23:00 82 17 98 08/28/19 22:51 74 19 130/89 97 08/28/19 22:37 87 21 143/95 H 97 08/28/19 22:21 86 23 126/91 97 08/28/19 22:06 93 H 22 136/104 H 97 08/28/19 22:00 90 25 H 99 08/28/19 21:51 93 H 24 137/105 H 96 08/28/19 21:21 94 H 23 133/94 97 08/28/19 21:06 96 H 24 118/105 H 97 08/28/19 21:00 97 H 21 97 08/28/19 20:51 96 H 24 138/91 97 08/28/19 20:37 94 H 18 137/115 H 95 08/28/19 20:11 94 H 24 99 08/28/19 20:10 86 24 99 08/28/19 20:06 91 H 17 148/116 H 99 Laboratory Results 08/29/19 04:58 08/29/19 04:58 Diagnostic Findings EEG is pending Coding Level of Care Code 21905 Subseq Hosp Care Lvl 3 Diagnoses Confusion R41.0 Tachycardia R00.0 NICM (nonischemic cardiomyopathy) I42.8 Hypoxia R09.02
--- NOTE | 2019-08-29 08:12 | Electroencephalogram ---
EEG Procedure Note Date of Service August 29, 2019 Start / End Times Start Time: 5:54 AM End Time: 6:14 AM Referring Physician Migue Quiroga MD History Syncope versus seizure. Seizure-like activity. Home Medication List Home Medications Medication Instructions Recorded Confirmed Type esomeprazole magnesium 20 mg 20 mg PO BID cap 09/05/18 08/28/19 History capsule,delayed release aspirin 81 mg tablet,delayed 81 mg PO QAM 09/17/18 08/28/19 History release cholecalciferol (vitamin D3) 25 2,000 units PO BID cap 09/17/18 08/28/19 History mcg (1,000 unit) capsule OneTouch Delica Plus Lancet 30 #400 ea NS 12/23/18 07/31/19 Rx gauge OneTouch Verio test strips #400 ea NS 12/23/18 07/31/19 Rx potassium chloride 20 mEq 20 meq PO BID 02/25/19 08/28/19 History tablet,extended release albuterol sulfate 90 mcg/actuation 1 puffs INH QID #18 gm 03/26/19 08/28/19 Rx aerosol inhaler sacubitril 97 mg-valsartan 103 mg 1 tab PO BID tab 04/10/19 08/28/19 History tablet nitroglycerin [Nitrostat] 0.4 mg SUBLINGUAL UD PRN 04/24/19 08/28/19 History metolazone 5 mg PO MOTH 04/29/19 08/28/19 History spironolactone 25 mg PO QAM #30 tab 05/07/19 08/28/19 Rx Oxygen Home #1 ea 05/19/19 07/31/19 Rx fluticasone 250 mcg-salmeterol 50 1 puffs INH BID #60 ea 05/23/19 08/28/19 Rx mcg/dose blistr powdr for inhalation dulaglutide 1.5 mg/0.5 mL 1.5 mg SQ WE #2 ml 06/25/19 08/28/19 Rx subcutaneous pen injector carisoprodol [Soma] 350 mg PO HS PRN 07/27/19 08/28/19 History metoprolol succinate [Toprol XL] 200 mg PO HS 07/27/19 08/28/19 History torsemide 40 mg PO BID #120 tab 07/29/19 08/28/19 Rx Inpatient Medication List Aspirin (Ecotrin Ectab) 81 mg PO QAM [facility] Stop: 09/27/19 08:59 Last Admin: 08/28/19 08:28 Dose: 81 mg Documented by: [id number] Fluticasone/Vilanterol (Breo Ellipta 200/25 Mcg Inh) 1 puffs INH DAILY [facility] Stop: 09/27/19 08:59 Last Admin: 08/28/19 08:28 Dose: 1 puffs Documented by: [id number] Famotidine 20 mg/ Syringe 5 mls @ 2.5 mls/min IV QAM [facility] Stop: 09/27/19 08:59 Last Admin: 08/28/19 08:34 Dose: 2.5 mls/min Documented by: [id number] Furosemide 40 mg/ Syringe 4 mls @ 4 mls/min IV BID17 [facility] Stop: 09/27/19 16:59 Last Admin: 08/28/19 19:55 Dose: 4 mls/min Documented by: [id number] Heparin Sodium (Porcine) 7,500 (units/ Syringe) 0.75 mls @ 10 mls/min SQ Q8H [facility] Stop: 09/27/19 21:59 Last Admin: 08/29/19 06:07 Dose: 10 mls/min Documented by: [id number] Cosigned by: [id number] Admin: 08/28/19 22:05 Dose: 10 mls/min Documented by: [id number] Cosigned by: [id number] Insulin Aspart (Novolog Flexpen) 0 units SQ Q6 [facility]; Protocol Stop: 09/27/19 05:59 Last Admin: 08/29/19 06:08 Dose: Not Given Documented by: [id number] Admin: 08/29/19 00:08 Dose: Not Given Documented by: [id number] Admin: 08/28/19 19:29 Dose: Not Given Documented by: [id number] Cosigned by: [id number] Admin: 08/28/19 12:57 Dose: Not Given Documented by: [id number] Cosigned by: [id number] Admin: 08/28/19 06:25 Dose: 2 units Documented by: [id number] Cosigned by: [id number] Insulin Human NPH (Novolin N Nph) 0 units SC DAILY@1700 [facility]; Protocol Stop: 09/27/19 16:59 Last Admin: 08/28/19 19:52 Dose: Not Given Documented by: [id number] Ipratropium [place] (Atrovent 0.02% 0.5mg/2.5ml) 0.5 mg INH Q6R [facility] Stop: 09/27/19 06:59 Last Admin: 08/29/19 07:14 Dose: 0.5 mg Documented by: [id number] Admin: 08/29/19 00:32 Dose: 0.5 mg Documented by: [id number] Admin: 08/28/19 20:04 Dose: 0.5 mg Documented by: [id number] Admin: 08/28/19 13:11 Dose: 0.5 mg Documented by: [id number] Admin: 08/28/19 07:15 Dose: 0.5 mg Documented by: [id number] Levalbuterol HCl (Xopenex 1.25mg/0.5ml Neb) 1.25 mg INH Q6R [facility] Stop: 09/27/19 06:59 Last Admin: 08/29/19 07:14 Dose: 1.25 mg Documented by: [id number] Admin: 08/29/19 00:32 Dose: 1.25 mg Documented by: [id number] Admin: 08/28/19 20:04 Dose: 1.25 mg Documented by: [id number] Admin: 08/28/19 13:11 Dose: 1.25 mg Documented by: [id number] Admin: 08/28/19 07:15 Dose: 1.25 mg Documented by: [id number] Metolazone (Zaroxolyn) 5 mg PO MoTh@0900 [facility] Stop: 09/27/19 08:59 Last Admin: 08/28/19 08:27 Dose: 5 mg Documented by: [id number] Metoprolol Succinate (Toprol Xl) 200 mg PO HS [facility] Stop: 09/27/19 20:59 Last Admin: 08/28/19 21:16 Dose: 200 mg Documented by: [id number] Potassium Chloride (Klor-Con M20) 40 meq PO TID [facility] Stop: 09/27/19 13:59 Last Admin: 08/28/19 21:16 Dose: 40 meq Documented by: [id number] Admin: 08/28/19 14:16 Dose: 40 meq Documented by: [id number] Sacubitril/Valsartan (Entresto 97/103mg) 1 tab PO BID [facility] Stop: 09/27/19 08:59 Last Admin: 08/28/19 21:16 Dose: 1 tab Documented by: [id number] Admin: 08/28/19 08:28 Dose: 1 tab Documented by: [id number] Spironolactone (Aldactone) 50 mg PO QAM [facility] Stop: 09/27/19 08:59 Last Admin: 08/28/19 10:19 Dose: 25 mg Documented by: [id number] Discontinued Medications Furosemide (Lasix) 80 mg IV NOW STA Stop: 08/28/19 02:04 Last Admin: 08/28/19 02:24 Dose: 80 mg Documented by: [id number] Doxycycline Hyclate 100 mg/ (Dextrose) 110 mls @ 50 mls/hr IV NOW STA Stop: 08/28/19 04:18 Last Infusion: 08/28/19 05:05 Dose: 0 mls/hr Documented by: [id number] Admin: 08/28/19 02:24 Dose: 50 mls/hr Documented by: [id number] Furosemide 40 mg/ Syringe 4 mls @ 4 [facility]ls[facility] [place]: 09/27/19 08:59 Last Admin: 08/28/19 08:34 Dose: 4 mls/min Documented by: [id number] Magnesium Sulfate/Dextrose (Magnesium Sulfate / D5w) 1 gm in 100 mls @ 50 mls/hr IV Q2H [facility] Stop: 08/28/19 15:59 Last Infusion: 08/28/19 17:54 Dose: 0 mls/hr Documented by: [id number] Admin: 08/28/19 14:43 Dose: 50 mls/hr Documented by: [id number] Infusion: 08/28/19 14:43 Dose: 50 mls/hr Documented by: [id number] Admin: 08/28/19 12:50 Dose: 50 mls/hr Documented by: [id number] Insulin Human NPH (Novolin N Nph) 8 units SC BIDM [facility]; Protocol Stop: 09/27/19 07:59 Last Admin: 08/28/19 08:28 Dose: 8 units Documented by: [id number] Cosigned by: [id number] Ioversol (Optiray 320 125ml) 119 ml IV ONCE PRN PRN Reason: Interaction Checking Stop: 09/01/19 15:11 Last Admin: 08/28/19 15:15 Dose: 119 ml Documented by: [id number] Levalbuterol HCl (Xopenex Hfa) 2 puffs INH NOW STA Stop: 08/28/19 01:02 Last Admin: 08/28/19 01:53 Dose: 2 puffs Documented by: [id number] Miscellaneous Information (Consult Glycemic Management Pharmacy) 1 ea N/A NOW STA Stop: 08/28/19 04:55 Last Admin: 08/28/19 05:08 Dose: Not Given Documented by: [id number] Potassium Chloride (Klor-Con M20) 20 meq PO BID [facility] Stop: 09/27/19 08:59 Last Admin: 08/28/19 08:28 Dose: 20 meq Documented by: [id number] Spironolactone (Aldactone) 25 mg PO QAM [facility] Stop: 09/27/19 08:59 Last Admin: 08/28/19 08:28 Dose: 25 mg Documented by: [id number] Description This is a 21 electrode EEG with a single channel dedicated to limited EKG. The electrodes were placed in accordance with the International 10-20 system. There is a posterior dominant rhythm of 10 Hz which is symmetrically distributed and attenuates with eye opening. There is a normal anterior to posterior organization. Photic stimulation is unremarkable. Hyperventilation is not performed. There is a small amount of admixed generalized theta activity. There is a symmetrical frontal beta rhythm. There is intermittent movement artifact. There is no focal or lateralized slowing. No epileptiform abnormalities observed. Interpretation This is a normal-appearing awake/drowsy EEG. A normal EEG does not completely exclude a diagnosis of epilepsy. Further clinical correlation may be needed. [facility] Procedure Codes Indication for Procedure (1) Seizure-like activity: Neurology Neurology: [id number] EEG include record awake & drowsy
--- NOTE | 2019-08-29 08:15 | Hospitalist Progress Note ---
Date of Service August 29, 2019 Assessment & Plan (1) Loss of consciousness for less than 30 minutes: episode of seizure vs syncope leading to code purple being called on 08/27. loss of consciousness was about 20 minutes. BSG was wnl. no obvious dysrhythmia on monitor although there was a lapse in his telemetry during the event - ICD/pacer interrogation pending. ammonia and prolactin wnl. lactate wnl. CT head neg. EEG neg. Dr Alonzo consult appreciated. Head/Neck CTA recommended - both normal. Syncope suspected. Due to hypoxia?? (2) Acute and chronic respiratory failure with hypoxia: acute component - decompensated CHF - resolving. continue to diurese. chronic resp failure - likely obesity-hypoventilation syndrome. (3) Acute on chronic combined systolic (congestive) and diastolic (congestive) heart failure: improving. continue to diurese with lasix 40mg IV BID. metazolone twice weekly. increased aldactone to 50mg daily. decompensation likely noncompliance with outpatient regimen of meds. cont BB, entresto. previous echo with EF <30%, nonischemic in nature. (4) Diabetic peripheral neuropathy associated with type 2 diabetes mellitus: cont basal-bolus insulin regimen -pharmacy management appreciated. (5) Cardiac defibrillator in place: interrogation requested due to loss of consciousness spell 08/28/19 (6) Cough with hemoptysis: on previous admissions the patient has complained of this. he has had a bronch in the last year that was normal. has had numerous CTs and chest x-rays without lesions. felt to be 2nd to pulmonary edema. has had no witnessed hemoptysis while here. (7) Morbid obesity: BMI >50 (8) Obstructive sleep apnea: noncompliant with PPV at home (9) Dyslipidemia: (10) GERD (gastroesophageal reflux disease): cont H2 [place] (11) Depression with anxiety: not on meds (12) Dilatation of thoracic aorta: stable on chest CT no dissection no rupture outpatient surveillance (13) DVT prophylaxis: heparin 7500 units TID (due to massive morbid obesity) ok to transfer to PCU today Admission and Anticipated Discharge Date Admission Date: August 28, 2019 Subjective patient talking on the phone during my assessment. feels "great" - "much better" today. weaned to NC O2. COPIOUS diuresis overnight. eating well. dyspnea, chest symptoms, abdominal symptoms - all resolved. no further spells of syncope vs seizure. tele normal overnight. Review of Systems Constitutional: no fever Respiratory: no cough Cardiovascular: no chest pain Gastrointestinal: no abdominal pain, no nausea and no vomiting Physical Exam Constitutional: + morbidly obese; no acute distress and no altered mental stat us ENMT: external ear and nose normal, oropharynx normal Respiratory: no respiratory distress Auscultation: no crackles and no wheezes Cardiovascular: Rate/Rhythm: regular rate and regular rhythm Heart Sounds: normal S1 and normal S2; no murmur Vessels: posterior tibial pulses present and dorsalis pedis pulses present; no JVD (unable to assess due to neck size ) Extremities: + edema (trace ) Gastrointestinal (Abdomen): Inspection/Auscultation: normal bowel sounds; abdomen not distended Percussion/Palpation: abdomen nontender, no guarding and no hepatosplenomegaly Skin: minimal erythema lower abdominal wall == nontender today Psychiatric: Orientation: alert and oriented x 3 Results & Data Results & Data ([facility]) Vital Signs (Past 12 Hours) Vital Signs Pulse Pulse Pulse Resp BP Pulse Ox Pulse Ox 08/29/19 07:15 75 75 17 100 08/29/19 05:00 75 17 98 08/29/19 04:54 96 08/29/19 04:52 74 17 148/103 H 97 08/29/19 04:37 54 L 16 116/84 99 08/29/19 04:22 72 5 L 120/73 99 08/29/19 04:07 72 17 97/70 L 99 08/29/19 04:00 86 15 08/29/19 03:52 91 H 19 70/63 L 99 08/29/19 03:38 72 23 132/95 99 08/29/19 03:23 88 16 117/102 H 89 L 08/29/19 03:07 74 22 109/74 97 08/29/19 03:00 65 12 98 08/29/19 02:52 78 22 125/86 99 08/29/19 02:36 72 25 H 126/81 98 08/29/19 02:22 77 16 110/84 99 08/29/19 02:07 80 23 119/83 98 08/29/19 02:00 84 25 H 98 08/29/19 01:52 74 15 122/98 99 08/29/19 01:37 83 15 127/92 98 08/29/19 01:21 70 23 134/85 97 08/29/19 01:07 80 20 129/87 98 08/29/19 01:00 85 19 99 08/29/19 00:52 79 23 142/110 H 98 08/29/19 00:37 77 18 129/83 99 08/29/19 00:32 75 20 98 08/29/19 00:22 79 24 123/90 97 08/29/19 00:00 74 22 97 08/28/19 23:51 73 21 120/74 98 08/28/19 23:45 69 16 98 08/28/19 23:37 83 22 122/80 98 08/28/19 23:21 78 27 H 134/85 98 08/28/19 23:06 84 21 136/94 97 08/28/19 23:00 82 17 98 08/28/19 22:51 74 19 130/89 97 08/28/19 22:37 87 21 143/95 H 97 08/28/19 22:21 86 23 126/91 97 08/28/19 22:06 93 H 22 136/104 H 97 08/28/19 22:00 90 25 H 99 08/28/19 21:51 93 H 24 137/105 H 96 08/28/19 21:21 94 H 23 133/94 97 08/28/19 21:06 96 H 24 118/105 H 97 08/28/19 21:00 97 H 21 97 08/28/19 20:51 96 H 24 138/91 97 08/28/19 20:37 94 H 18 137/115 H 95 Laboratory Results Laboratory Results - last 24 hr 08/28/19 08/28/19 08/28/19 01:21 09:55 12:56 WBC RBC Hgb Hct MCV MCH MCHC RDW Std Deviation RDW Coeff of Zoltan Plt Count MPV Immature Gran % (Auto) Neut % (Auto) Lymph % (Auto) [place] % (Auto) Eos % (Auto) Baso % (Auto) Neut # (Auto) Lymph # (Auto) [place] # (Auto) Eos # (Auto) Baso # (Auto) Immature Gran # (Auto) ESR Sodium 144 Potassium 3.4 L Chloride 111 H Carbon Dioxide 25 Anion Gap 8.0 BUN 13 Creatinine 1.03 Est Cr Clr Drug Dosing 140.3 Est GFR ( Amer) 103.4 Est GFR (Non-Af Amer) 89.2 BUN/Creatinine Ratio 12.2 Glucose 144 H POC Glucose 130 H Fasting Glucose Lactate Calcium 8.1 L Phosphorus Magnesium 1.6 L Total Bilirubin 1.4 H AST 14 L ALT 22 Alkaline Phosphatase 98 Ammonia Troponin I 0.025 Total Protein 7.1 Albumin 3.0 L Globulin 4.1 H Albumin/Globulin Ratio 0.7 L Prolactin 10.14 08/28/19 08/28/19 08/28/19 17:02 17:12 17:12 WBC 10.28 RBC 5.53 Hgb 14.7 Hct 43.8 MCV 79.2 L MCH 26.6 MCHC 33.6 RDW Std Deviation 48.4 H RDW Coeff of Zoltan 17.2 H Plt Count 185 MPV 10.1 Immature Gran % (Auto) 0.3 Neut % (Auto) 69.6 Lymph % (Auto) 21.2 [place] % (Auto) 7.4 Eos % (Auto) 1.2 Baso % (Auto) 0.3 Neut # (Auto) 7.16 H Lymph # (Auto) 2.18 [place] # (Auto) 0.76 H Eos # (Auto) 0.12 Baso # (Auto) 0.03 Immature Gran # (Auto) 0.03 H ESR 27 H Sodium Potassium Chloride Carbon Dioxide Anion Gap BUN Creatinine Est Cr Clr Drug Dosing Est GFR ( Amer) Est GFR (Non-Af Amer) BUN/Creatinine Ratio Glucose POC Glucose 132 H Fasting Glucose Lactate Calcium Phosphorus Magnesium Total Bilirubin AST ALT Alkaline Phosphatase Ammonia Troponin I Total Protein Albumin Globulin Albumin/Globulin Ratio Prolactin 08/28/19 08/28/19 08/28/19 17:12 17:12 17:12 WBC RBC Hgb Hct MCV MCH MCHC RDW Std Deviation RDW Coeff of Zoltan Plt Count MPV Immature Gran % (Auto) Neut % (Auto) Lymph % (Auto) [place] % (Auto) Eos % (Auto) Baso % (Auto) Neut # (Auto) Lymph # (Auto) [place] # (Auto) Eos # (Auto) Baso # (Auto) Immature Gran # (Auto) ESR Sodium 140 Potassium 3.8 Chloride 107 Carbon Dioxide 27 Anion Gap 6.0 BUN 11 Creatinine 1.11 Est Cr Clr Drug Dosing 130.2 Est GFR ( Amer) 94.4 Est GFR (Non-Af Amer) 81.5 BUN/Creatinine Ratio Glucose POC Glucose Fasting Glucose 123 H Lactate 1.5 Calcium 8.8 Phosphorus Magnesium 2.3 Total Bilirubin AST ALT Alkaline Phosphatase Ammonia 24.8 Troponin I Total Protein Albumin Globulin Albumin/Globulin Ratio Prolactin 08/28/19 08/29/19 08/29/19 19:12 04:58 04:58 WBC 8.85 RBC 5.56 Hgb 14.8 Hct 44.5 MCV 80.0 MCH 26.6 MCHC 33.3 RDW Std Deviation 49.3 H RDW Coeff of Zoltan 17.3 H Plt Count 179 MPV 9.7 Immature Gran % (Auto) 0.2 Neut % (Auto) 64.8 Lymph % (Auto) 25.1 [place] % (Auto) 7.7 Eos % (Auto) 2.0 Baso % (Auto) 0.2 Neut # (Auto) 5.73 Lymph # (Auto) 2.22 [place] # (Auto) 0.68 H Eos # (Auto) 0.18 Baso # (Auto) 0.02 Immature Gran # (Auto) 0.02 ESR Sodium 140 Potassium 3.9 Chloride 107 Carbon Dioxide 26 Anion Gap 7.0 BUN 13 Creatinine 1.10 Est Cr Clr Drug Dosing 131.4 Est GFR ( Amer) 95.5 Est GFR (Non-Af Amer) 82.4 BUN/Creatinine Ratio 11.5 Glucose 135 H POC Glucose 111 H Fasting Glucose Lactate Calcium 8.6 Phosphorus 4.2 Magnesium 1.9 Total Bilirubin AST ALT Alkaline Phosphatase Ammonia Troponin I Total Protein Albumin Globulin Albumin/Globulin Ratio Prolactin 08/29/19 08:11 WBC RBC Hgb Hct MCV MCH MCHC RDW Std Deviation RDW Coeff of Zoltan Plt Count MPV Immature Gran % (Auto) Neut % (Auto) Lymph % (Auto) [place] % (Auto) Eos % (Auto) Baso % (Auto) Neut # (Auto) Lymph # (Auto) [place] # (Auto) Eos # (Auto) Baso # (Auto) Immature Gran # (Auto) ESR Sodium Potassium Chloride Carbon Dioxide Anion Gap BUN Creatinine Est Cr Clr Drug Dosing Est GFR ( Amer) Est GFR (Non-Af Amer) BUN/Creatinine Ratio Glucose POC Glucose 120 H Fasting Glucose Lactate Calcium Phosphorus Magnesium Total Bilirubin AST ALT Alkaline Phosphatase Ammonia Troponin I Total Protein Albumin Globulin Albumin/Globulin Ratio Prolactin PG Care Time/CCT Total # of Minutes Spent Total Time Spent with Patient: Total time spent is greater than 50% in coordin ation of care (as documented) at patient's floor/unit and/or counseling patient: Coding Level of Care Code 29794 Subseq Hosp Care Lvl 2 Diagnoses Loss of consciousness for less than 30 minutes Acute and chronic respiratory failure with hypoxia J96.21 Acute on chronic combined systolic (congestive) and diastolic (congestive) heart failure I50.43 Diabetic peripheral neuropathy associated with type 2 diabetes mellitus E11.[address] Z95.810 Cough with hemoptysis R04.2 Morbid obesity E66.01 Obstructive sleep apnea G47.33 Dyslipidemia E78.5 GERD (gastroesophageal reflux disease) K21.9 Esophagitis presence: without esophagitis Depression with anxiety F41.8 Dilatation of thoracic aorta I77.810 DVT prophylaxis Z29.9 (1) GERD (gastroesophageal reflux disease) Esophagitis presence: without esophagitis Qualified Code(s): K21.9 - Gastro- esophageal reflux disease without esophagitis
[2019-08-29] MEDS ORDERED: Nursing to Pharmacy Communication SCH (08:30)
[2019-08-29] MEDS ORDERED: carvediloL 6.25 MG TAB PO SCH (09:00)
[2019-08-29] MEDS: INSULIN HUMAN NPH SC SCH ×2 (09:45→16:35)
[2019-08-29] MEDS: POTASSIUM CHLORIDE 20 MEQ TABCR PO SCH ×3 (09:50→21:29)
[2019-08-29] MEDS: SACUBITRIL-VALSARTAN 97-103 MG TAB PO SCH ×2 (09:50→20:31)
[2019-08-29] MEDS: SPIRONOLACTONE 25 MG TAB PO SCH (09:51)
[2019-08-29] MEDS: ASPIRIN 81 MG ECTAB PO SCH (09:51)
[2019-08-29] MEDS: FLUTICASONE/VILANTEROL 200/25MCG 14 PUFFS/INHALER INH SCH (09:51)
[2019-08-29] MEDS: FAMOTIDINE 20 MG in SYRINGE 3 ML IV SCH (09:52)
[2019-08-29] MEDS: FUROSEMIDE 40 MG in SYRINGE 0 ML IV SCH ×2 (09:52→16:40)
--- NOTE | 2019-08-29 10:05 | Neurology Consultation ---
Date of Consultation August 29, 2019 Assessment & Plan (1) Seizure-like activity: Observed seizure-like episode occurring in the context of acute on chronic respiratory and congestive heart failure in a patient with morbid obesity and obstructive sleep apnea. He has a normal-appearing EEG. I do not think the observed episode was an actual seizure. His previous neuroimaging has revealed only mild chronic cerebrovascular disease. Follow-up with results of up-to-date CT of the head when available. If patient has additional episodes would consider obtaining an up-to-date brain MRI as well although he does have a cardiac defibrillator in place and this test may need to be coordinated with cardiology. Although the reported episode was not very suggestive of stroke, I would recommend completion of a CT angiogram of the head and neck to exclude vertebrobasilar insufficiency. I would not recommend starting an anticonvulsant at this time. History of Present Illness Reason for Consultation: Seizure versus syncope Requesting Physician: Migue Packer MD Attending Physician: Migue Packer History of Present Illness The patient is a 43-year-old male with a history of acute on chronic respiratory failure, congestive heart failure, morbid obesity, and obstructive sleep apnea who had an episode of unresponsiveness yesterday afternoon. The episode occurred suddenly while he was speaking with Dr. Packer. His eyes rolled back, he stared for about 1 minute and then became unresponsive. There was brief mild eye fluttering and brief twitching of the arms. No tonic-clonic movements. Patient was unresponsive for about 20 minutes. The patient is a limited historian and does not recall yesterday's episode very well. He does admit that he has had several prior episodes of loss of consciousness or passing out. He did have a fairly unremarkable CT of the head completed at [facility] this past April in the context of syncope and cough. Dr. Leon had evaluated this patient during a hospitalization in November 2018 for left-sided weakness and numbness potentially related to TIA and/or chronic hypoxia in the context of chronic cerebrovascular disease. He had presented to the emergency department late yesterday complaining of cough/hematemesis for the past 2 days. He is currently admitted for further evaluation and management of acute on chronic respiratory and congestive heart failure as above. He did have an electroencephalogram completed this morning that was normal. Allergies Allergy/AdvReac Type Severity Reaction Status Date / Time ceftriaxone Allergy Severe SHORTNESS Verified 08/28/19 01:25 OF BREATH lidocaine Allergy Severe SHORTNESS Verified 08/28/19 01:25 OF BREATH, diaphoretic, hives procaine Allergy Severe SHORTNESS Verified 08/28/19 01:25 OF BREATH, diaphoretic, hives amoxicillin Allergy Intermediate HIVES/FACIAL Verified 08/28/19 01:25 SWELLING clavulanic acid Allergy Intermediate HIVES/FACIAL Verified 08/28/19 01:25 SWELLING lisinopril Allergy Intermediate HIVES Verified 08/28/19 01:25 acetaminophen AdvReac Mild NAUSEA Verified 08/28/19 01:25 albuterol AdvReac Mild proair Verified 08/28/19 01:25 "trouble taking breaths" Home Medications Home Medications Medication Instructions Recorded Confirmed Type esomeprazole magnesium 20 mg 20 mg PO BID cap 09/05/18 08/28/19 History capsule,delayed release aspirin 81 mg tablet,delayed 81 mg PO QAM 09/17/18 08/28/19 History release cholecalciferol (vitamin D3) 25 2,000 units PO BID cap 09/17/18 08/28/19 History mcg (1,000 unit) capsule InstaradioTouch Delica Plus Lancet 30 #400 ea NS 12/23/18 07/31/19 Rx gauge OneTouch Verio test strips #400 ea NS 12/23/18 07/31/19 Rx potassium chloride 20 mEq 20 meq PO BID 02/25/19 08/28/19 History tablet,extended release albuterol sulfate 90 mcg/actuation 1 puffs INH QID #18 gm 03/26/19 08/28/19 Rx aerosol inhaler sacubitril 97 mg-valsartan 103 mg 1 tab PO BID tab 04/10/19 08/28/19 History tablet nitroglycerin [Nitrostat] 0.4 mg SUBLINGUAL UD PRN 04/24/19 08/28/19 History metolazone 5 mg PO MOTH 04/29/19 08/28/19 History spironolactone 25 mg PO QAM #30 tab 05/07/19 08/28/19 Rx Oxygen Home #1 ea 05/19/19 07/31/19 Rx fluticasone 250 mcg-salmeterol 50 1 puffs INH BID #60 ea 05/23/19 08/28/19 Rx mcg/dose blistr powdr for inhalation dulaglutide 1.5 mg/0.5 mL 1.5 mg SQ WE #2 ml 06/25/19 08/28/19 Rx subcutaneous pen injector carisoprodol [Soma] 350 mg PO HS PRN 07/27/19 08/28/19 History metoprolol succinate [Toprol XL] 200 mg PO HS 07/27/19 08/28/19 History torsemide 40 mg PO BID #120 tab 07/29/19 08/28/19 Rx Patient History Medical History Dilatation of thoracic aorta Fatty liver Hearing loss of both ears Hypoxia (Inactive) Iliac aneurysm (Inactive) Left-sided weakness Lung nodule (Inactive) NICM (nonischemic cardiomyopathy) Pt admitted for elective ICD. Underwent procedure without any complications monitored over night and discharged home. SOB (shortness of breath) (Inactive) Umbilical hernia (Inactive) Vitamin D insufficiency Previously deficient, taking Vit D supplementation Surgical History History of carpal tunnel surgery History of cholecystectomy S/P tonsillectomy Family History Father , age 57 of an NH. Heart disease Myocardial infarction Mother , age 67 of a ruptured neck vessel Sudden Other Depression Lung disease No pertinent family history Denies family history of Ovarian cancer Prostate cancer Breast cancer Colorectal cancer Social History Preferred Language: German Communication Ability: Effective Visual Impairment: No Limitations Hearing Ability: Normal Statement Distribution Clerk Required: No Beliefs That Will Affect Care: None marital status: Current Living Situation: Spouse current occupational status: unemployed Other Information That Helps Us Care for You: No Feels Safe at Home: Yes Safety Concerns: Feels Safe At This Time Smoking Status: Never smoker Tobacco Type: cigarettes ; Age Started Using Tobacco: 14 ; Age Quit Using Tobacco: 18 ; Cigarettes Per Day: 40-50 ; Second Hand Exposure: No ; Hx Alcohol Use: Yes Alcohol type: beer and hard liquor Alcohol Intake Fr equency: Rarely Hx Substance Use: No Childhood Exposure to Second-Hand Smoke: Yes Dental Care, Regularly: Yes Physical Activity Frequency: Does not Exercise Review of Systems Constitutional: no fever and no chills Eyes: no blind spots and no diplopia Ear, Nose, Mouth, Throat: no tinnitus and no hearing loss Respiratory: + cough and + dyspnea Cardiovascular: + chest pain Gastrointestinal: no nausea and no vomiting Genitourinary: no dysuria Musculoskeletal: no myalgia Integumentary: no rash and no lesions Neurologic: as per Subjective / HPI and + seizure-like activity; no localized weakness, no loss of sensation and no headache(s) Psychiatric: no depression and no anxiety Hematologic / Lymphatic: no easy bleeding and no easy bruising Exam (Neuro) Constitutional: well developed and well nourished; no acute distress Eyes: normal visual obrien by confrontation, PERRL, normal accommodation and EOM intact bilaterally; no fundoscopic abnormality, no nystagmus and no papilledema Cardiovascular: Vessels: normal carotid upstroke; no carotid bruit Neurologic: Oriented to:: Person, Place and Time Memory: Short Term Intact and Remote Intact Attention: Span Intact and Concentration Intact Language: Naming Objects and Repeating Phrases Speech Fluency: negative Dysarthria Speech Aphasia: negative Aphasia Fund of Knowledge: Current Events, Past History and Vocabulary Cranial Nerves: Normal II (Visual obrien full to confrontation, visual acuity normal), III, IV, (Pupils equal round reactive to light and accommodation, eye movements normal), V (Facial sensation intact), VII (There is no facial droop or weakness), VIII (Hearing intact), IX, X (Palate elevates to midline), XI (Shoulder shrug intact) and XII (Tongue protrudes to midline) Motor Strength: Normal Lower Extremities and Normal Upper Extremities; negative Pronator Drift Motor Tone: Normal Lower Extremities and Normal Upper Extremities Muscle Bulk/Involuntary Movements: No Involuntary Movements; negative Muscle Atrophy Sensation: Light Touch Intact and Proprioception Intact; negative Pain/Temperature Intact and Vibration Intact Coordination: Normal; negative Dysdiadochokinesia, Finger-Nose Abnormal and Heel-Beckman Abnormal Deep Tendon Reflexes: Rt Triceps: 1+, Lt Triceps: 1+, Rt Biceps: 1+, Lt Biceps: 1+, Rt Brachioradialis: 1+, Lt Brachioradialis: 1+, Rt Patellar: 1+, Lt Patellar: 1+, Rt Ankle: 0 and Lt Ankle: 0 Special Tests: negative Babinski Present Details: Gait could not be tested in the context of patient's current medical condition. Results & Data ([facility]) Vital Signs (Past 12 Hours) Vital Signs Pulse Pulse Pulse Resp BP Pulse Ox Pulse Ox 08/29/19 07:15 75 75 17 100 08/29/19 05:00 75 17 98 08/29/19 04:54 96 08/29/19 04:52 74 17 148/103 H 97 08/29/19 04:37 54 L 16 116/84 99 08/29/19 04:22 72 5 L 120/73 99 08/29/19 04:07 72 17 97/70 L 99 08/29/19 04:00 86 15 08/29/19 03:52 91 H 19 70/63 L 99 08/29/19 03:38 72 23 132/95 99 08/29/19 03:23 88 16 117/102 H 89 L 08/29/19 03:07 74 22 109/74 97 08/29/19 03:00 65 12 98 08/29/19 02:52 78 22 125/86 99 08/29/19 02:36 72 25 H 126/81 98 08/29/19 02:22 77 16 110/84 99 08/29/19 02:07 80 23 119/83 98 08/29/19 02:00 84 25 H 98 08/29/19 01:52 74 15 122/98 99 08/29/19 01:37 83 15 127/92 98 08/29/19 01:21 70 23 134/85 97 08/29/19 01:07 80 20 129/87 98 08/29/19 01:00 85 19 99 08/29/19 00:52 79 23 142/110 H 98 08/29/19 00:37 77 18 129/83 99 08/29/19 00:32 75 20 98 08/29/19 00:22 79 24 123/90 97 08/29/19 00:00 74 22 97 08/28/19 23:51 73 21 120/74 98 08/28/19 23:45 69 16 98 08/28/19 23:37 83 22 122/80 98 08/28/19 23:21 78 27 H 134/85 98 08/28/19 23:06 84 21 136/94 97 08/28/19 23:00 82 17 98 07/16/20 22:51 74 19 130/89 97 08/28/19 22:37 87 21 143/95 H 97 08/28/19 22:21 86 23 126/91 97 08/28/19 22:06 93 H 22 136/104 H 97 08/28/19 22:00 90 25 H 99 08/28/19 21:51 93 H 24 137/105 H 96 Laboratory Results WBC 8.85, hemoglobin 14.8, hematocrit 44.5, platelet count 179, ESR 27, sodium 140, potassium 3.9, BUN 13, creatinine 1.10, glucose 135, ammonia 24.8, total CK 138, transaminases normal, prolactin 10.[address] of the head completed on May 05, 2019 revealed periventricular white matter lucency probably consistent with chronic small vessel ischemic change. I reviewed the images as well as the radiologist's interpretation of this test. A brain MRI completed at [facility] on December 10, 2018 was negative for acute or subacute infarct. The study revealed mild chronic small vessel ischemic disease. No abnormalities on postcontrast imaging. No masses or lesions identified. I reviewed the images pertaining to this test. An electrocardiogram reveals possible left atrial enlargement and sinus tachycardia, 116 bpm. An electroencephalogram completed this morning reveals a normal background alpha rhythm and is without epileptiform abnormalities. Coding Level of Care Code 36632 Initial In Care Lvl 3 Diagnoses Seizure-like activity R56.9
[2019-08-29 11:45] LABS: iSTAT Arterial Blood Gas pH 7.44 (7.35-7.45); iSTAT Hematocrit 45 % (42-52); iSTAT Hemoglobin 15.3 g/dl (14.0-18.0); iSTAT Potassium 3.9 mmol/L (3.3-5.0); iSTAT Sodium 142 mmol/L (135-144)
[2019-08-29 11:46] LABS: iSTAT Arterial Blood Gas HCO3 28 meg/L (19-24); iSTAT Arterial Blood Gas pCO2 42 mmHg (35-46); iSTAT Arterial Blood Gas pO2 77 mmHg (80-95); iSTAT Carbon Dioxide 29 mmol/L (24-31); iSTAT Sample Type Arterial
--- NOTE | 2019-08-29 12:50 | Electrocardiogram Report ---
Test Reason : Blood Pressure : / mmHG Vent. Rate : 091 BPM Atrial Rate : 091 BPM P-R Int : 158 ms QRS Dur : 108 ms QT Int : 416 ms P-R-T Axes : 034 -23 116 degrees QTc Int : 511 ms Sinus rhythm with occasional Premature ventricular complexes Left atrial enlargement Prolonged QT Abnormal ECG When compared with ECG of 28-AUG-2019 01:01, (unconfirmed) Premature ventricular complexes are now Present Confirmed by Bertrand Polanco ([id number]) on 08/29/2019 12:49:44 PM Referred By: REFERRED SELF Confirmed By:Severiano Polanco
[2019-08-29] MEDS ORDERED: OPTIRAY 320 125ml IV PRN (13:03)
--- NOTE | 2019-08-29 13:14 | CT Scan Report ---
CT angio head w con CLINICAL HISTORY: Episode of loss of consciousness, rule out vertebrobasilar insufficiency TECHNIQUE: CT angiography of the head was performed in a dynamic helical fashion during intravenous a dministration of 120 cc of Optiray 320. MIP imaging was performed. A dose lowering technique was util ized adhering to the principles of ALARA. CT DOSE: COMPARISON STUDY: No previous studies for comparison. FINDINGS: There are no lesion suspicious for aneurysm. There are no major intracranial branch occlusi ons. The dural venous sinuses appear patent. IMPRESSION: Unremarkable CT angiography of the brain. ACT 112: Negative or not required by law. Electronically signed by: Garrett Muniz M.D. 08/29/2019 1:13 PM
--- NOTE | 2019-08-29 13:16 | CT Scan Report ---
CT angio neck with con HISTORY: Mental status change Episode of loss of consciousness, rule out vertebrobasilar insufficien cy TECHNIQUE: Multiaxial CT angiography of the neck was performed IV contrast: 120 cc nonionic All jese urements were calculated based on NASCET criteria. Maximum intensity projection images were also obt ained. A dose lowering technique was utilized adhering to the principles of ALARA. COMPARISON STUDY: None. FINDINGS: The aortic arch and proximal great vessels are widely patent. There is no significant sten osis, occlusion, or dissection identified within the bilateral common carotid, internal carotid, or v ertebral arteries. IMPRESSION: No significant stenosis, occlusion, or dissection identified within the carotid or vertebral arteries . Minimal scattered plaque formation bilaterally. ACT 112: Negative or not required by law. The above report was generated using voice recognition software. It may contain grammatical, syntax or spelling errors. Electronically signed by: Cleveland Concepcion M.D. 08/29/2019 1:15 PM
--- NOTE | 2019-08-29 13:17 | CT Scan Report ---
CT head/brain wo con CLINICAL HISTORY: 43 years-old Male with syncope. Acute syncope TECHNIQUE: Multiple axial CT images of the head were obtained without contrast. A dose lowering tech nique was utilized adhering to the principles of ALARA. COMPARISON: Head CT 05/05/2019 FINDINGS: No acute intracranial hemorrhage, midline shift, intracranial mass, hydrocephalus, territorial ischem ia or abnormal extra-axial collection. Patchy white matter hypodensities suggest chronic microvascula r ischemic disease. The calvarium is intact. The paranasal sinuses, mastoid air cells, and middle ear cavities are clear . IMPRESSION: No acute intracranial abnormality. ACT 112: Negative or not required by law. The above report was generated using voice recognition software. It may contain grammatical, syntax o r spelling errors. Electronically signed by: Petr Irby M.D. 08/29/2019 1:16 PM
[2019-08-29] MEDS: METOPROLOL SUCC 50MG EXT REL TAB PO SCH (20:32)
[2019-08-30] MEDS: IPRATROPIUM BROMIDE NEB SOLN 0.02% 2.5 ML VIAL INH SCH ×3 (01:31→13:30)
[2019-08-30] MEDS: LEVALBUTEROL 1.25MG/0.5ML NEB INH SCH ×3 (01:31→13:30)
[2019-08-30] MEDS: HEPARIN SODIUM (PORCINE) 7,500 UNITS in SYRINGE 0 ML SQ SCH (05:19)
[2019-08-30 06:05] LABS: BUN Creatinine Ratio 16.5 (10-20); Calcium 9.1 mg/dl (8.5-10.1); Creatinine Clr Calc Pharmacy 113.8 ml/min; Est GFR (African American) 80.2; Est GFR (Non-African American) 69.2; Potassium 4.4 mmol/L (3.5-5.1)
[2019-08-30] MEDS: INSULIN ASPART 100 UNITS/ML 3 ML PEN SQ SCH ×2 (07:58→11:47)
[2019-08-30] MEDS: INSULIN HUMAN NPH SC SCH (08:01)
[2019-08-30] MEDS: SPIRONOLACTONE 25 MG TAB PO SCH (08:50)
[2019-08-30] MEDS: SACUBITRIL-VALSARTAN 97-103 MG TAB PO SCH (08:51)
[2019-08-30] MEDS: FLUTICASONE/VILANTEROL 200/25MCG 14 PUFFS/INHALER INH SCH (08:51)
[2019-08-30] MEDS: ASPIRIN 81 MG ECTAB PO SCH (08:51)
[2019-08-30] MEDS: FUROSEMIDE 40 MG in SYRINGE 0 ML IV SCH (08:52)
[2019-08-30] MEDS: POTASSIUM CHLORIDE 20 MEQ TABCR PO SCH (08:52)
[2019-08-30] MEDS ORDERED: PANTOprazole 40 MG TAB PO SCH (09:00)
--- NOTE | 2019-08-30 14:30 | Discharge Summary ---
Date of Service date of admission - August 28, 2019 date of discharge - August 30, 2019 Admission HPI Per Admitting Provider History Limited by: Acute respiratory distress Alok Huff is a 43 y/o male with recurring acute on chronic congestive heart failure with numerous admissions for same, Non-ischemic cardiomyopathy, HTN emergency, gastritis, cardiac defibrillator in place, DM insulin/oral, MARIELENA, non- compliance, fatty liver, morbid obesity, who presented to [facility] ED for dyspnea. He notes symptoms started today of shortness of breath that worsened overnight. He does not currently mention any chest pain, abdominal pain, fever, chills. He noted hemoptysis which is chronic for him. He notes he has been taking all of his medications as prescribed. He notes he is a full code. He currently is being placed on BiPAP. He notes he needs to urinate. He received Xopenex inhaler, Lasix 80mg IV and Doxycycline 100mg IV. His CXR was significant for fluid overload. Unable to get recent diet history because of current need for BiPaP and patient appears to struggle with continued question answering off of supplemental oxygen. He is unable to answer complex questioning but is alert and oriented x3. Principal Diagnosis 1. acute/chronic hypoxic respiratory failure 2. acute/chronic systolic CHF Discharge Exam Constitutional + morbidly obese; no acute distress and no altered mental status ENMT external ear and nose normal, oropharynx normal Respiratory no respiratory distress Auscultation: + diminished lung sounds (Bases); no crackles and no wheezes Cardiovascular Rate/Rhythm: regular rate and regular rhythm Heart Sounds: normal S1 and normal S2; no murmur Vessels: posterior tibial pulses present and dorsalis pedis pulses present; no JVD (unable to assess due to neck size ) Extremities: + edema (trace ) Gastrointestinal (Abdomen) Inspection/Auscultation: normal bowel sounds; abdomen not distended Percussion/Palpation: abdomen nontender, no guarding and no hepatosplenomegaly Psychiatric Orientation: alert and oriented x 3 Discharge Data Allergies Allergy/AdvReac Type Severity Reaction Status Date / Time ceftriaxone Allergy Severe SHORTNESS Verified 08/28/19 01:25 OF BREATH lidocaine Allergy Severe SHORTNESS Verified 08/28/19 01:25 OF BREATH, diaphoretic, hives procaine Allergy Severe SHORTNESS Verified 08/28/19 01:25 OF BREATH, diaphoretic, hives amoxicillin Allergy Intermediate HIVES/FACIAL Verified 08/28/19 01:25 SWELLING clavulanic acid Allergy Intermediate HIVES/FACIAL Verified 08/28/19 01:25 SWELLING lisinopril Allergy Intermediate HIVES Verified 08/28/19 01:25 acetaminophen AdvReac Mild NAUSEA Verified 08/28/19 01:25 albuterol AdvReac Mild proair Verified 08/28/19 01:25 "trouble taking breaths" Consultations Neurology - Jason Alonzo MD Critical Care - Kalpesh Hernandez MD Ordered Studies 08/28/19 12:30 CT head/brain wo con Routine - no acute intra-cranial abnormalities. 08/28/19 14:05 CT abd pelvis IV con only Stat - IMPRESSION: 1. No acute intra-abdominal or pelvic findings 2. No evidence of bowel obstruction. No evidence of free air 3. No evidence of acute appendicitis. No evidence of acute diverticulitis. 4. Small bilateral pleural effusions with bibasilar groundglass opacities CT angio chest dissec wo/w con Stat - IMPRESSION: 1. Stable dilatation of the ascending thoracic aorta. 2. Current maximum dimension is 4.4 cm essentially unchanged. 3. Small bilateral pleural effusions unchanged with components of congestive failure. 08/29/19 12:30 CT angio head w con Routine - no intracranial stenosis, aneurysm, or dissection. CT angio neck with con Routine - no stenosis or dissection. EEG - no seizure activity. Hospital Course (1) Acute and chronic respiratory failure with hypoxia: acute component 2nd to decompensated systolic CHF. required BiPAP and aggressive diuresis. with time his BiPAP was weaned off and he was transitioned back to NC O2. he did not have evidence of a superimposed infectious process of the lungs. chronic resp failure - likely obesity-hypoventilation syndrome. typically uses 2-3 L NC continuously. (2) Acute on chronic combined systolic (congestive) and diastolic (congestive) heart failure: Was diuresed with IV lasix, increased dose of aldactone (25mg adjusted to 50mg/day), and metolazone. Decompensation was likely 2nd to outpatient noncompliance with diet, medication regimen, fluid intake, BiPAP for MARIELENA, and/or his oxygen. Echo was not repeated while hospitalized. Previous echo with EF < 30% -- nonischemic in nature. He will remain on toprol xl 200mg daily, entresto BID, aldactone 50mg daily, and torsemide 40mg BID. He will take metolazone twice weekly (Mondays, ). Patient openly stated that he dislikes taking his evening diuretics because his was giving them at bedtime. Recommended he change the time of his evening dose of torsemide to late afternoon (4 or 5pm). Patient follows with Dr Luis Antonio Hernandez at [facility]. Dr Hernandez was notified of the patient's admission and need for close follow-up within the week after discharge. Discharge weight 152 kg. Lost ~8 liters of water weight during diuresis. (3) Loss of consciousness for less than 30 minutes: episode of seizure vs syncope leading to code purple being called on 08/28/19. Patient was transferred to ICU for close observation following the event and remained there for <24 hours. loss of consciousness was about 20 minutes. He did not have any prolonged post- ictal phase. BSG was wnl. no obvious dysrhythmia on monitor although there was a lapse in his telemetry during the event. formal ICD/pacer interrogation did NOT show non-sustained V-tach or other dysrhythmia during the spell, however. ammonia and prolactin levels were normal. lactate wnl. CT head neg. EEG neg. Head/Neck CTA both normal. Syncope was suspected by [facility], Dr Alonzo, as opposed to an episode of seizure. Due to hypoxia? Other? (4) Diabetic peripheral neuropathy associated with type 2 diabetes mellitus: control was adequate with basal-bolus insulin regimen. Pharmacy managed his T2DM while hospitalized. (5) Cardiac defibrillator in place: interrogation requested due to loss of consciousness spell 08/28/19. interrogation did NOT show any dysrhythmia, V-tach, etc during the 08/28/19 event that would have accounted for his symptoms. (6) Morbid obesity: BMI >50 (7) Obstructive sleep apnea: noncompliant with PPV at home (8) Dyslipidemia: (9) GERD (gastroesophageal reflux disease): cont PPI (10) Depression with anxiety: not on meds (11) Dilatation of thoracic aorta: stable on chest CT no dissection no rupture outpatient surveillance current dimension 4.4cm (12) Cough with hemoptysis: on previous admissions the patient has complained of this. he has had a bronch in the last year that was normal. has had numerous CTs and chest x-rays without lesions. felt to be 2nd to pulmonary edema. has had no witnessed hemoptysis while hospitalized. hemoglobin was stable during the stay; discharge Hb 14.8. Total Time Total Time Spent Total Time Spent (In Minutes): 40 Total Time Includes: Examination of the Patient, Discharge Planning, Medication Reconciliation and Communication With Other Providers Discharge Plan Discharge Items Patient Disposition: Home - Home Health Services Reason For Visit: Shortness of breath Discharge Diagnosis: Congestive heart failure leading to fluid build-up in the lungs causing your shortness of breath. Shortness of breath resolved. Passing out spell - exact cause uncertain. We checked your defibrillator device and you did not have any abnormal heart rhythm that caused the passing out. Activity: Resume your previous activity Non-emergency contact: Primary Care Provider and Aerial Photograph Interpreter Call non-emergency contact if: you have any medication questions, your symptoms worsen and you have a fever Follow-up/Referrals: Alejandra Geronimo CRNP, MS, [employer] [facility] [Primary Care Provider] - (see Ms Geronimo within 1-2 weeks) Shon Hernandez DO [Aerial Photograph Interpreter] - (see Dr Hernandez or his partners within 5 days to recheck your congestive heart failure ) Diet: Carb Consistent or DM2, Heart Healthy and Low Sodium (2gm) Fluids: 2000ml (8 cups) Addtl Attending Provider Instructions: You were treated for fluid build-up in the lungs due to your congestive heart failure. Your weight on 08/30/19 - day of discharge - is 335 pounds. All the fluid is gone from the lungs. Your breathing is back to normal. Your labs are good/normal. Your defibrillator device was checked and is functioning fine with 10+ years of battery life left. You did NOT have an abnormal heart rhythm that caused your passing out spell. We are uncertain what caused the spell. We checked you for stroke and we did not find such. We checked for blocked arteries in your head and neck and did not find blockages. We did an "EEG" looking for seizures and this was negative. If you keep having passing out spells please see [facility] for additional tests. You have fungus infection ("athlete's foot") on your feet. Please use ketoconazole cream twice daily for 3-4 weeks to get rid of this. Prescription sent to [facility] for you. Recommendations for your heart - 1. INCREASE your spironolactone to 50mg (2 tablets) every morning. 2. Take your torsemide 40mg twice daily every day. Take at the following times -- * morning dose - about 8 or 9am * evening dose - about 4 or 5pm (don't take the evening dose at bedtime - you'll urinate all night!) 3. Check your weight EVERY DAY. Call Dr Hernandez if your weight is going up more than 3 pounds in 1 day. Your weight today is 335 pounds. 4. Avoid fried foods, deli meats such as salami or bologna, fast foods, frozen goods (TV dinners as example), chips, canned soups, spam, sausage, ridley, etc. These have high amounts of salt in them. They will make your breathing worse. 5. continue your oxygen as previous. 6. Wear a mask any time you leave your house. This is to try and avoid getting the COVID-19 virus. Follow-up - see separate section Additional instructions - Call 911 and go to the Emergency Room if: * You have tightness or pain in your chest that does not go away with rest or Nitroglycerin * You are very short of breath even with rest Call your doctor if any of the following symptoms or problems start or get worse: * Shortness of breath or difficulty breathing * Wake up at night short of breath * Chest pain * Cough * Swelling of your hands, fee, or legs * More fatigued or tired with your normal activity * Palpitations - sudden fast heart beats WEIGHT * Weigh yourself every morning after using the bathroom. * Use the same scale. * Wear the same amount of clothing. * Write your weight down on your chart. * Call your doctor if you gain more than 3 pounds in 1 day. MEDICATIONS * Use this discharge instruction sheet for instructions. * Take your medications at the time your doctor ordered. * Do not skip a dose of your medicines. * If you miss a dose of medicine, take as soon as possible, but DO NOT DOUBLE A DOSE. * Read your medicine information when you get home. * Know all of the side effects of your medicine. * Call your doctor's office if you have any side effects. * Be sure all of your doctors know what medicine and herbs you take (including cold, flu, and herbal medicine). * Pain Medicine: If you do not get relief from your pain, please call your doctor for help. Take the following with you to your follow-up doctor appointments: * Weight Chart * Medication List * List of questions Do not drink excessive alcohol, beer or wine. Pending Studies at Discharge: No Stand-Alone Forms: My [facility] [place], Smoking Cessation Medications and DC Order Prescriptions: New ketoconazole 2 % cream 1 appln TOP BID Qty: 30 RF: 1 Continued (DME) lancets [OneTouch Delica Plus Lancet] 30 gauge misc See Dose Instructions .ROUTE .MEDSUPPLY Qty: 400 RF: 3 (DME) OneTouch Verio test strips strip See Dose Instructions .ROUTE .MEDSUPPLY Qty: 400 RF: 3 fluticasone propion-salmeterol [Advair Diskus] 250-50 mcg/dose blister with device 1 puffs INH BID Qty: 60 RF: 2 Trulicity 1.5 mg/0.5 mL pen injector 1.5 mg SQ WE Qty: 2 RF: 5 potassium chloride [K-Tab] 20 mEq tablet extended release 20 meq PO BID RF: 0 albuterol sulfate [Ventolin HFA] 90 mcg/actuation HFA aerosol inhaler 1 puffs INH QID Qty: 18 RF: 2 (DME) Oxygen Home Liters Per Minute See Rx Instructions .ROUTE .MEDSUPPLY Qty: 1 RF: 5 esomeprazole magnesium [Nexium] 20 mg capsule,delayed release(DR/EC) 20 mg PO BID RF: 0 aspirin [Aspirin Low Dose] 81 mg tablet,delayed release (DR/EC) 81 mg PO QAM RF: 0 nitroglycerin [Nitrostat] 0.4 mg tablet, sublingual 0.4 mg sublingual UD PRN (Reason: Chest Pain) RF: 0 cholecalciferol (vitamin D3) [Vitamin D3] 1,000 unit capsule 2,000 units PO BID RF: 0 Entresto 97-103 mg tablet 1 tab PO BID RF: 0 metolazone 5 mg tablet 5 mg PO MOTH RF: 0 carisoprodol [Soma] 350 mg tablet 350 mg PO HS PRN (Reason: muscle pain) RF: 0 metoprolol succinate [Toprol XL] 200 mg tablet extended release 24 hr 200 mg PO HS RF: 0 torsemide 20 mg tablet 40 mg PO BID Qty: 120 RF: 2 Changed spironolactone 25 mg Tablet 50 mg PO QAM Qty: 30 RF: 0 Discharge Orders: Discharge Order (Routine); Ordered 08/30/19 Ordered By: Migue Packer Admission Data Admit Date/Time: 08/28/19 03:12 Attending Provider: Migue Packer Admit Provider: Kye García Primary Care Provider: Alejandra Geronimo Other Providers: Noé Jaquez ; Jason Alonzo Other Interventions: Discharge Summary Assessment (RN) Last Done: 08/30/19 17:42 DC Date/Time DO NOT enter until pt leaves facility: 08/30/19 17:20 Coding Level of Care Code D/C Day Management >30 mins Diagnoses Acute and chronic respiratory failure with hypoxia J96.21 Acute on chronic combined systolic (congestive) and diastolic (congestive) heart failure I50.43 Loss of consciousness for less than 30 minutes Diabetic peripheral neuropathy associated with type 2 diabetes mellitus E11.[address] Z95.810 Morbid obesity E66.01 Obstructive sleep apnea G47.33 Dyslipidemia E78.5 GERD (gastroesophageal reflux disease) K21.9 Esophagitis presence: without esophagitis Depression with anxiety F41.8 Dilatation of thoracic aorta I77.810 Cough with hemoptysis R04.2
== END 2019-08-30 17:20 | disposition home health service (06) ==
LOC: ED 00:53 → SUATTDRO 03:12 → 2S 03:12 → INTOOBSV 03:12 → 2S 03:43 → 1E 17:45 → 2S 08-29 11:40

== ENCOUNTER 2019-09-11 11:43 | Observation (INO) ==
[2019-09-11] MEDS ORDERED: cloNIDine HCL 0.1 MG TAB PO ONE (12:19)
[2019-09-11 12:59] LABS: Basophils # (auto) 0.02 K/uL (0-0.2); Basophils % (auto) 0.2 %; Eosinophils # (auto) 0.05 K/uL (0-0.5); Eosinophils % (auto) 0.6 %; Hematocrit (blood only) 40.1 % (42-52); Hemoglobin 13.3 g/dL (14.0-18.0); Immature Granulocytes # (auto) 0.04 K/uL (0.00-0.02); Immature Granulocytes % (auto) 0.5 %; Lymphocytes # (auto) 1.99 K/uL (1.2-3.4); Lymphocytes % (auto) 24.3 %; Mean Corpuscular Hemoglobin 26.2 pg (25-34); Mean Corpuscular Hgb Conc 33.2 g/dL (32-36); Mean Corpuscular Volume 79.1 fL (80-100); Mean Platelet Volume 9.8 fL (7.4-10.4); Monocytes # (auto) 0.53 K/uL (0.11-0.59); Monocytes % (auto) 6.5 %; Neutrophils # (auto) 5.56 K/uL (1.4-6.5); Neutrophils % (auto) 67.9 %; Platelet Count 167 K/uL (130-400); RDW Coefficient of Variation 17.2 % (11.5-14.5); RDW Standard Deviation 48.6 fL (36.4-46.3); Red Blood Count 5.07 M/uL (4.7-6.1); White Blood Count 8.19 K/uL (4.8-10.8)
--- NOTE | 2019-09-11 12:59 | XRay Report ---
XR chest 1V portable HISTORY: 43 years-old Male Chest Pain acute atypical chest pain COMPARISON: Chest radiograph 08/28/2019 TECHNIQUE: Portable AP view of the chest FINDINGS: Cardiac silhouette is enlarged. Single lead left subclavian pacer. No pneumothorax. Pulmonary vascula r congestion with new interstitial opacities. Small pleural effusions with mild bibasilar densities. Bones appear grossly intact. IMPRESSION: 1. Cardiomegaly with pulmonary edema. 2. Trace pleural effusions with mild bibasilar consolidation. ACT 112: Negative or not required by law. The above report was generated using voice recognition software. It may contain grammatical, syntax o r spelling errors. Electronically signed by: Petr Irby M.D. 09/11/2019 12:58 PM
[2019-09-11 13:11] LABS: INR 1.1 (0.9-1.1); Partial Thromboplastin Ratio 1.1; Partial Thromboplastin Time 31.8 Seconds (21.0-31.0); Prothrombin Time 11.9 Seconds (9.0-12.0)
[2019-09-11 13:19] LABS: Alanine Aminotransferase 31 U/L (12-78); Aspartate Aminotransferase 19 U/L (15-37); BUN Creatinine Ratio 12.1 (10-20); Blood Urea Nitrogen 11 mg/dl (7-18); Calcium 8.3 mg/dl (8.5-10.1); Carbon Dioxide 22 mmol/L (21-32); Chloride 113 mmol/L (98-107); Est GFR (African American) 116.9; Est GFR (Non-African American) 100.9; Glucose 172 mg/dl (70-99); Lipase 108 U/L (73-393); Potassium 3.7 mmol/L (3.5-5.1); Sodium 142 mmol/L (136-145)
[2019-09-11] MEDS ORDERED: FUROSEMIDE 40 MG/4 ML VIAL IV STA (13:20)
--- NOTE | 2019-09-11 13:20 | Emergency Department Note ---
History of Present Illness General Chief Complaint: Shortness of Breath/Dyspnea Stated Complaint: SOB,VOMITING BLOOD Time Seen by Provider: 09/11/19 12:04 Source: patient Mode of arrival: ambulatory Limitations: no limitations History of Present Illness Provider Complaint: shortness of breath Maximum Pain Intensity: 9 HPI Narrative: This is a 43-year-old male who presents to the ED with a chief complaint of shortness of breath. The patient states that his symptoms started this morning. He states that his chest feels achy. He was spitting up a little blood. The patient denies any fevers. No sick contacts. Denies any headaches, abdominal pains, nausea or vomiting. The patient was seen a couple of days ago here for a left leg cellulitis. He is currently on doxycycline. Home Medications Home Medications Medication Instructions Recorded Confirmed Type esomeprazole magnesium 20 mg 20 mg PO BID cap 09/05/18 09/11/19 History capsule,delayed release aspirin 81 mg tablet,delayed 81 mg PO QAM 09/17/18 09/11/19 History release cholecalciferol (vitamin D3) 25 2,000 units PO BID cap 09/17/18 09/11/19 History mcg (1,000 unit) capsule OneTouch Delica Plus Lancet 30 #400 ea NS 12/23/18 09/11/19 Rx gauge OneTouch Verio test strips #400 ea NS 12/23/18 09/11/19 Rx potassium chloride 20 mEq 20 meq PO BID 02/25/19 09/11/19 History tablet,extended release albuterol sulfate 90 mcg/actuation 1 puffs INH QID #18 gm 03/26/19 09/11/19 Rx aerosol inhaler sacubitril 97 mg-valsartan 103 mg 1 tab PO BID tab 04/10/19 09/11/19 History tablet nitroglycerin [Nitrostat] 0.4 mg SUBLINGUAL UD PRN 04/24/19 09/11/19 History metolazone 5 mg PO MOTH 04/29/19 09/11/19 History Oxygen Home #1 ea 05/19/19 09/11/19 Rx fluticasone 250 mcg-salmeterol 50 1 puffs INH BID #60 ea 05/23/19 09/11/19 Rx mcg/dose blistr powdr for inhalation dulaglutide 1.5 mg/0.5 mL 1.5 mg SQ WE #2 ml 06/25/19 09/11/19 Rx subcutaneous pen injector carisoprodol [Soma] 350 mg PO HS PRN 07/27/19 09/11/19 History metoprolol succinate [Toprol XL] 200 mg PO HS 07/27/19 09/11/19 History ketoconazole 1 appln TOP BID #30 gm 08/30/19 09/11/19 Rx torsemide 40 mg PO BID #120 tab 08/30/19 09/11/19 Rx doxycycline monohydrate 100 mg PO BID #20 cap 09/09/19 09/11/19 Rx spironolactone 50 mg PO BID 09/11/19 09/11/19 History Allergies Allergy/AdvReac Type Severity Reaction Status Date / Time ceftriaxone Allergy Severe SHORTNESS Verified 09/11/19 12:26 OF BREATH lidocaine Allergy Severe SHORTNESS Verified 09/11/19 12:26 OF BREATH, diaphoretic, hives procaine Allergy Severe SHORTNESS Verified 09/11/19 12:26 OF BREATH, diaphoretic, hives amoxicillin Allergy Intermediate HIVES/FACIAL Verified 09/11/19 12:26 SWELLING clavulanic acid Allergy Intermediate HIVES/FACIAL Verified 09/11/19 12:26 SWELLING lisinopril Allergy Intermediate HIVES Verified 09/11/19 12:26 acetaminophen AdvReac Mild NAUSEA Verified 09/11/19 12:26 albuterol AdvReac Mild proair Verified 09/11/19 12:26 "trouble taking breaths" Past Med/Surg History Medical History Dilatation of thoracic aorta Fatty liver Hearing loss of both ears Hypoxia (Inactive) Iliac aneurysm (Inactive) Left-sided weakness Lung nodule (Inactive) NICM (nonischemic cardiomyopathy) Pt admitted for elective ICD. Underwent procedure without any complications monitored over night and discharged home. SOB (shortness of breath) (Inactive) Umbilical hernia (Inactive) Vitamin D insufficiency Previously deficient, taking Vit D supplementation Surgical History History of carpal tunnel surgery History of cholecystectomy S/P tonsillectomy Family History Father , age 57 of an [place]. Heart disease Myocardial infarction Mother , age 67 of a ruptured neck vessel Sudden Other Depression Lung disease No pertinent family history Denies family history of Ovarian cancer Prostate cancer Breast cancer Colorectal cancer Social History Smoking Status: Former smoker Age Started Using Tobacco: 14; Age Quit Using Tobacco: 18; Cigarettes Per Day: 40-50; Second Hand Exposure: No; Hx Alcohol Use: Yes Alcohol type: beer and hard liquor Hx Substance Use: No Preferred Language: [place] Island[place] Communication Ability: Effective Visual Impairment: No Limitations Hearing Ability: Normal Manager Market Research Required: No Beliefs That Will Affect Care: None marital status: Current Living Situation: Spouse current occupational status: unemployed How many Children do You have: 0 Feels Safe at Home: Yes Childhood Exposure to Second-Hand Smoke: Yes Dental Care, Regularly: Yes Physical Activity Frequency: Does not Exercise Review of Systems A total of 10 systems reviewed and were otherwise negative Physical Exam Vital Signs: Vital Signs - 24 hr 09/11/19 11:46 09/11/19 12:25 09/11/19 12:55 Temperature 36.5 C Temperature Source Oral Pulse Rate 101 H 104 H Pulse Rate from Sp O2 Sensor 104 H Respiratory Rate 22 28 H Respiratory Effort / Characteristics Pursed Lip Short o f Breath Respiratory Depth Normal Respiratory Patter n Tachypnea Blood Pressure 187/132 H Blood Pressure Ly n 150 Pulse Oximetry 93 87 L 95 Oxygen Delivery Me thod Room Air Nasal Cannula Nasal Cannula Oxygen Flow Rate 4 Sepsis Recent Feve r Within 48 Hours No Sepsis New/Unexpla ined Change in Men kyree Status N/A Sepsis Action Take n by Nursing No Action Required Oxygen Flow Rate - Titration 4 Pulse Oximetry Pos t Tiitration 98 09/11/19 12:56 09/11/19 13:00 09/11/19 13:51 Temperature Temperature Source Pulse Rate 103 H 101 H 102 H Pulse Rate from Sp O2 Sensor 102 H 100 H 101 H Respiratory Rate 28 H 28 H 22 Respiratory Effort / Characteristics Respiratory Depth Respiratory Patter n Blood Pressure 180/129 H 182/131 H 196/165 H Blood Pressure Ly n 149 147 177 Pulse Oximetry 96 96 97 Oxygen Delivery Me thod Oxygen Flow Rate Sepsis Recent Feve r Within 48 Hours Sepsis New/Unexpla ined Change in Men kyree Status Sepsis Action Take n by Nursing Oxygen Flow Rate - Titration Pulse Oximetry Pos t Tiitration 09/11/19 14:24 Temperature Temperature Source Pulse Rate 112 H Pulse Rate from Sp O2 Sensor 113 H Respiratory Rate 26 H Respiratory Effort / Characteristics Respiratory Depth Respiratory Patter n Blood Pressure Blood Pressure Ly n Pulse Oximetry 96 Oxygen Delivery Me thod Oxygen Flow Rate Sepsis Recent Feve r Within 48 Hours Sepsis New/Unexpla ined Change in Men kyree Status Sepsis Action Take n by Nursing Oxygen Flow Rate - Titration Pulse Oximetry Pos t Tiitration Physical Exam: CONSTITUTIONAL/VITAL SIGNS: Reviewed / noted above. GENERAL: Non-toxic in appearance. INTEGUMENTARY: Warm, dry, and [place]. HEAD: Normocephalic. EYES: without scleral icterus or trauma. ENT/OROPHARYNX: clear and moist. LYMPHADENOPATHY/NECK: Is supple without lymphadenopathy or meningismus. RESPIRATORY: Lungs diminished and equal with basilar crackles. CARDIOVASCULAR: Regular rate and rhythm. GI/ABDOMEN: Soft and nontender. No organomegaly or pulsatile mass. No rebound or guarding. Normal bowel sounds. EXTREMITIES: Warm and well perfused. BACK: No CVA tenderness. NEUROLOGICAL: Intact without focal deficits. PSYCHIATRIC: normal affect. MUSCULOSKELETAL: Normally developed with good muscle tone. TRIAGE NURSING DOCUMENTATION REVIEWED. Course Administered Medications Discontinued Medications Clonidine HCl (Catapres) 0.2 mg PO NOW ONE Stop: 09/11/19 12:20 Last Admin: 09/11/19 12:56 Dose: 0.2 mg Documented by: [id number] Furosemide (Lasix) 40 mg IV NOW STA Stop: 09/11/19 13:21 Last Admin: 09/11/19 13:55 Dose: 40 mg Documented by: [id number] Hydralazine HCl (Hydralazine Hcl) 20 mg IV NOW STA Stop: 09/11/19 13:57 Last Admin: 09/11/19 14:10 Dose: 20 mg Documented by: [id number] Medical Decision Making Differential Diagnosis The differential was considered includes acute myocardial infarction, acute coronary syndrome, myocarditis, pericarditis, pericardial effusions /tamponad, esophageal perforation, pulmonary embolism, pneumonia, pneumothorax, cardiomyopathy, congestive heart, anemia , COPD/asthma exacerbation. Medical Records Attestation: I reviewed the patient's medical records. Home Medications Current Medication List: was personally reviewed by me Laboratory Data Attestation: I reviewed the patient's lab results. Result diagrams: 09/11/19 12:50 09/11/19 12:50 Lab Results 09/11/19 09/11/19 09/11/19 Range/Units 12:50 12:50 12:50 WBC 8.19 (4.8-10.8) K/uL RBC 5.07 (4.7-6.1) M/uL Hgb 13.3 L (14.0-18.0) g/dL Hct 40.1 L (42-52) % MCV 79.1 L (80-100) fL MCH 26.2 (25-34) pg MCHC 33.2 (32-36) g/dL RDW Std Deviation 48.6 H (36.4-46.3) fL RDW Coeff of Zoltan 17.2 H (11.5-14.5) % Plt Count 167 (130-400) K/uL MPV 9.8 (7.4-10.4) fL Immature Gran % (Auto) 0.5 % Neut % (Auto) 67.9 % Lymph % (Auto) 24.3 % [place] % (Auto) 6.5 % Eos % (Auto) 0.6 % Baso % (Auto) 0.2 % Neut # (Auto) 5.56 (1.4-6.5) K/uL Lymph # (Auto) 1.99 (1.2-3.4) K/uL [place] # (Auto) 0.53 (0.11-0.59) K/uL Eos # (Auto) 0.05 (0-0.5) K/uL Baso # (Auto) 0.02 (0-0.2) K/uL Immature Gran # (Auto) 0.04 H (0.00-0.02) K/uL PT 11.9 (9.0-12.0) Seconds INR 1.1 (0.9-1.1) APTT 31.8 H (21.0-31.0) Seconds PTT Ratio 1.1 Sodium 142 (136-145) mmol/L Potassium 3.7 (3.5-5.1) mmol/L Chloride 113 H (98-107) mmol/L Carbon Dioxide 22 (21-32) mmol/L Anion Gap 7.0 (3-11) BUN 11 (7-18) mg/dl Creatinine 0.93 (0.6-1.4) mg/dl Est Cr Clr Drug Dosing Not Reportable Est GFR ( Amer) 116.9 Est GFR (Non-Af Amer) 100.9 BUN/Creatinine Ratio 12.1 (10-20) Glucose 172 H (70-99) mg/dl POC Glucose (70-99) mg/dl Calcium 8.3 L (8.5-10.1) mg/dl Total Bilirubin 1.4 H (0.2-1) mg/dl AST 19 (15-37) U/L ALT 31 (12-78) U/L Alkaline Phosphatase 92 (45-117) U/L Troponin I 0.024 (0-0.045) ng/ml Total Protein 7.0 (6.4-8.2) gm/dl Albumin 3.0 L (3.4-5.0) gm/dl Globulin 4.0 (2.5-4.0) gm/dl Albumin/Globulin Ratio 0.8 L (0.9-2) Lipase 108 (73-393) U/L 09/11/19 09/11/19 Range/Units 13:54 14:02 WBC (4.8-10.8) K/uL RBC (4.7-6.1) M/uL Hgb (14.0-18.0) g/dL Hct (42-52) % MCV (80-100) fL MCH (25-34) pg MCHC (32-36) g/dL RDW Std Deviation (36.4-46.3) fL RDW Coeff of Zoltan (11.5-14.5) % Plt Count (130-400) K/uL MPV (7.4-10.4) fL Immature Gran % (Auto) % Neut % (Auto) % Lymph % (Auto) % [place] % (Auto) % Eos % (Auto) % Baso % (Auto) % Neut # (Auto) (1.4-6.5) K/uL Lymph # (Auto) (1.2-3.4) K/uL [place] # (Auto) (0.11-0.59) K/uL Eos # (Auto) (0-0.5) K/uL Baso # (Auto) (0-0.2) K/uL Immature Gran # (Auto) (0.00-0.02) K/uL PT (9.0-12.0) Seconds INR (0.9-1.1) APTT (21.0-31.0) Seconds PTT Ratio Sodium (136-145) mmol/L Potassium (3.5-5.1) mmol/L Chloride (98-107) mmol/L Carbon Dioxide (21-32) mmol/L Anion Gap (3-11) BUN (7-18) mg/dl Creatinine (0.6-1.4) mg/dl Est Cr Clr Drug Dosing Est GFR ( Amer) Est GFR (Non-Af Amer) BUN/Creatinine Ratio (10-20) Glucose (70-99) mg/dl POC Glucose 154 H (70-99) mg/dl Calcium (8.5-10.1) mg/dl Total Bilirubin (0.2-1) mg/dl AST (15-37) U/L ALT (12-78) U/L Alkaline Phosphatase (45-117) U/L Troponin I 0.017 (0-0.045) ng/ml Total Protein (6.4-8.2) gm/dl Albumin (3.4-5.0) gm/dl Globulin (2.5-4.0) gm/dl Albumin/Globulin Ratio (0.9-2) Lipase (73-393) U/L Imaging Data Radiologist's Impression: Chest x-ray: IMPRESSION: 1. Cardiomegaly with pulmonary edema. 2. Trace pleural effusions with mild bibasilar consolidation. ECG Data Attestation: I personally reviewed and interpreted this ECG as follows: (Twelve- lead EKG: Per my interpretation) Blood Pressure Blood Pressure Findings: Elevated blood pressure Blood Pressure Disposition: further management by hospitalist [facility] Narrative The patient presents with a chief complaint of shortness of breath. His symptoms started this morning. The patient's blood pressure is significantly e levated. His CBC is unremarkable. Chemistry panel was unremarkable. Chest x- ray suggestive of cardiomegaly and pulmonary edema. The patient's EKG shows a sinus rhythm without ischemic changes. An ultrasound of the left lower extremity did not show DVT. The patient was given oral clonidine initially. This did not seem to improve his blood pressure. He was then given 20 mg of IV hydralazine and also IV Lasix 40 mg. He will be seen by the hospitalist for further inpatient evaluation and care. Impression & Plan Hypertensive urgency, Acute CHF (congestive heart failure), Cellulitis and abscess of left leg Discharge Plan Visit Data Chief Complaint: Shortness of Breath/Dyspnea Stated Complaint: SOB,VOMITING BLOOD ED Provider: Kan Ya Discharge Problem: Hypertensive urgency, Acute CHF (congestive heart failure), Cellulitis and abscess of left leg Patient Disposition: Being Evaluated by Hospitalist Condition: Good Forms Stand Alone Forms: On License Of [facility], Virtual Emergency Department, Important Visit Information Prescriptions Prescriptions: No Action (DME) lancets [OneTouch Delica Plus Lancet] 30 gauge misc See Dose Instructions .ROUTE .MEDSUPPLY Qty: 400 RF: 3 (DME) OneTouch Verio test strips strip See Dose Instructions .ROUTE .MEDSUPPLY Qty: 400 RF: 3 fluticasone propion-salmeterol [Advair Diskus] 250-50 mcg/dose blister with device 1 puffs INH BID Qty: 60 RF: 2 Trulicity 1.5 mg/0.5 mL pen injector 1.5 mg SQ WE Qty: 2 RF: 5 potassium chloride [K-Tab] 20 mEq tablet extended release 20 meq PO BID RF: 0 albuterol sulfate [Ventolin HFA] 90 mcg/actuation HFA aerosol inhaler 1 puffs INH QID Qty: 18 RF: 2 (DME) Oxygen Home Liters Per Minute See Rx Instructions .ROUTE .MEDSUPPLY Qty: 1 RF: 5 esomeprazole magnesium [Nexium] 20 mg capsule,delayed release(DR/EC) 20 mg PO BID RF: 0 aspirin [Aspirin Low Dose] 81 mg tablet,delayed release (DR/EC) 81 mg PO QAM RF: 0 nitroglycerin [Nitrostat] 0.4 mg tablet, sublingual 0.4 mg sublingual UD PRN (Reason: Chest Pain) RF: 0 doxycycline monohydrate 100 mg capsule 100 mg PO BID Qty: 20 RF: 0 spironolactone 25 mg tablet 50 mg PO BID RF: 0 cholecalciferol (vitamin D3) [Vitamin D3] 1,000 unit capsule 2,000 units PO BID RF: 0 Entresto 97-103 mg tablet 1 tab PO BID RF: 0 metolazone 5 mg tablet 5 mg PO MOTH RF: 0 carisoprodol [Soma] 350 mg tablet 350 mg PO HS PRN (Reason: muscle pain) RF: 0 metoprolol succinate [Toprol XL] 200 mg tablet extended release 24 hr 200 mg PO HS RF: 0 ketoconazole 2 % cream 1 appln TOP BID Qty: 30 RF: 1 torsemide 20 mg tablet 40 mg PO BID Qty: 120 RF: 2 Referrals Referrals: Alejandra Geronimo CRNP, MS, [employer] [Primary Care Provider] -
[2019-09-11 13:25] LABS: Albumin Globulin Ratio 0.8 (0.9-2); Alkaline Phosphatase 92 U/L (45-117); Bilirubin,Total 1.4 mg/dl (0.2-1); Troponin I 0.024 ng/ml (0-0.045)
--- NOTE | 2019-09-11 13:52 | Ultrasound Report ---
US venous doppler LE LT CLINICAL HISTORY: pain swelling COMPARISON STUDY: 11/26/2018 FINDINGS: Real-time and color flow Doppler imaging were performed. Flow was seen within the femoral, popliteal and calf veins with no intraluminal thrombus demonstrated. The saphenous vein is patent. IMPRESSION: No evidence of left lower extremity DVT. ACT 112: Negative or not required by law. Electronically signed by: Garrett Muniz M.D. 09/11/2019 1:50 PM
[2019-09-11] MEDS ORDERED: HydrALAZINE HCL 20 MG/ML VIAL IV STA (13:56)
--- NOTE | 2019-09-11 16:28 | Electrocardiogram Report ---
Test Reason : Blood Pressure : / mmHG Vent. Rate : 106 BPM Atrial Rate : 106 BPM P-R Int : 160 ms QRS Dur : 104 ms QT Int : 376 ms P-R-T Axes : 046 -28 085 degrees QTc Int : 499 ms Sinus tachycardia Minor Non-specific intra-ventricular conduction delay Left atrial enlargement Nonspecific T wave abnormality Lateral leads Borderline ECG When compared with ECG of 28-AUG-2019 17:19, Premature ventricular complexes are no longer Present Otherwise no significant change Confirmed by Martell Flores [id number] on 09/11/2019 4:27:55 PM Referred By: Alejandra Geronimo Confirmed By:Martell Flores
--- NOTE | 2019-09-11 18:07 | History & Physical Report ---
Date of Service September 11, 2019 Assessment & Plan (1) Hypertensive urgency: On presentation the patient had a blood pressure of 200/100. He received some clonidine and repeat blood pressure was 265/165. He then received IV furosemide and IV hydralazine. Blood pressure improved to 149/96. We will continue with the patient's home Toprol XL at 200 mg daily We will also provide furosemide 40 mg IV twice daily as well as the patient's home dose of Aldactone twice daily IV hydralazine will be ordered as needed for systolic blood pressure greater than 180 Most recent echocardiogram was March 2019 No EKG changes or chest pain Follow on telemetry (2) Hemoptysis: Patient reports 1 tablespoon of clotted bright red blood this morning with cou gh. The patient has a long history of hemoptysis. Apparently bronchoscopy was completed in 2017 2018 with no specific findings This is not complicated by anemia as the patient's hemoglobin today is 13.3 Will continue to monitor but at this time there are no plans for bronchoscopy or further evaluation Patient does follow with the pulmonary clinic at [facility]. We will continue her further as an outpatient (3) Chronic respiratory failure: Patient is chronically on supplemental oxygen at 4 L/min via nasal cannula He has been diagnosed with obstructive sleep apnea but did not tolerate BiPAP settings We will continue with supplemental oxygen at 4 L/min via nasal cannula during the day Can use high flow O2 at night Patient saturating well with the supplemental oxygen (4) Combined systolic and diastolic heart failure: Patient has multiple admissions this hospital year for acute decompensation of chronic heart failure In the meantime continue with diuretics, supplemental oxygen, and home m edications No indication for repeat echocardiogram at this time Echocardiogram 04/01/2019: Left ventricle is moderately dilated Normal left ventricular wall thickness Moderate to severe global hypokinesis of the left ventricle Left ventricular ejection fraction 25 to 30% No significant valvular disease No hemodynamically significant valvular aortic stenosis (5) Obstructive sleep apnea: Patient is morbidly obese and has had diagnosis of MARIELENA in the past. Previous polysomnography exam with titration revealed optimal setting for BiPAP at 19/8 centimeters of water It was suggested that the patient have hose attaching to top of headgear due to constant mouth breathing and history of getting hose caught around his neck At this time we will not provide BiPAP in the acute hospital setting but will use high flow O2 to increase PEEP and provide required oxygen requirements Would refer back to the [facility] sleep clinic for further evaluation and coordination of outpatient equipment (6) Diabetes mellitus type 2 with complications: Generally controlled with hemoglobin A1c less than 8 Continue Trulicity NovoLog sliding scale insulin BSG AC and at bedtime (7) NICM (nonischemic cardiomyopathy): Patient had a [employer]onic AICD placed 04/08/[address] Hancock Serial number is [id number] Most recent interrogation was 08/30/2019 There were 9 episodes of nonsustained ventricular fibrillation with 0 shocks delivered At this time there is no indication to interrogate pacemaker again (8) Cellulitis of left leg: Left lower extremity has no significant edema, erythema, warmth We will continue home regimen of doxycycline 100 mg p.o. twice daily No indication for IV antibiotics at this time Please refer to Dr. Cadet's addendum for further recommendations (9) DVT prophylaxis: Heparin SQ Disposition-admit to PCU History of Present Illness Primary Care Provider: CM Vargas, MS, MA[employer] Attending: Dr. Cadet Is a 43-year-old male with multiple admissions to [facility] for shortness of breath and hemoptysis. The patient has a past medical history including ischemic cardiomyopathy, recent cellulitis of the left leg, microcytic anemia, history of melena, hypertension, retinopathy, diabetes mellitus type 2, combined systolic and diastolic heart failure, COPD, remote trivial tobacco history, obstructive sleep apnea, chronic supplemental oxygen use, GERD, anxiety, morbid obesity spondylolisthesis, placement of AICD. The patient states that he has shortness of breath which was progressive over the last 2 to 3 days. He also reports that this morning he coughed up approximately 1 tablespoon of bright red clotted blood. He reports he has had multiple episodes of coughing up blood and that he has had bronchoscopy twice in last 2 years and was told that "it was not the lungs". The patient has had multiple CT scans of the chest and all of been negative for pulmonary emboli. In the ER today he was also negative for deep vein thrombosis by duplex scan. The patient does have untreated sleep apnea and states that he was not able to tolerate the mask. There was discussion about tracheostomy in the past. The patient does use chronic supplemental oxygen 4 L/min via nasal cannula during sleep. Patient takes furosemide 40 mg p.o. twice daily twice daily, spironolactone 50 mg p.o. twice daily, metolazone 5 mg p.o. on Mondays and for his fluid overload. The patient has uncontrolled blood pressure. Home medications include metoprolol succinate 200 mg p.o. nightly and sacubitril 97 mg/valsartan 103 mg tablet p.o. twice daily. In the emergency room the patient was found to have a presenting blood pressure of 200/100. He was given clonidine Lasix and hydralazine and repeat blood pressure was 265/165. The patient had no chest pain or tightness. Initial troponin was 0.024. Repeat troponin II hours later was 0.017. At the time of my examination the patient had a presenting blood pressure of 160/133. His final blood pressure was then 149/96. Hemoglobin A1c is typically in the 7.0-7.8 range. Most recent A1c was 07/28/2019 and was 7.8. The patient's most recent admission was 08/28/2019 for acute respiratory distress and encephalopathy. He was treated with diuretics and antihypertensives and improved significantly. He also had left lower leg cellulitis and was treated on doxycycline and sent home on this. The patient is and has stepchildren that are age 22, 19, and 19. His helps to manage his medications and get him to his appointments. Allergies Allergy/AdvReac Type Severity Reaction Status Date / Time ceftriaxone Allergy Severe SHORTNESS Verified 09/11/19 12:26 OF BREATH lidocaine Allergy Severe SHORTNESS Verified 09/11/19 12:26 OF BREATH, diaphoretic, hives procaine Allergy Severe SHORTNESS Verified 09/11/19 12:26 OF BREATH, diaphoretic, hives amoxicillin Allergy Intermediate HIVES/FACIAL Verified 09/11/19 12:26 SWELLING clavulanic acid Allergy Intermediate HIVES/FACIAL Verified 09/11/19 12:26 SWELLING lisinopril Allergy Intermediate HIVES Verified 09/11/19 12:26 acetaminophen AdvReac Mild NAUSEA Verified 09/11/19 12:26 albuterol AdvReac Mild proair Verified 09/11/19 12:26 "trouble taking breaths" Home Medications Home Medications Medication Instructions Recorded Confirmed Type esomeprazole magnesium 20 mg 20 mg PO BID cap 09/05/18 09/11/19 History capsule,delayed release aspirin 81 mg tablet,delayed 81 mg PO QAM 09/17/18 09/11/19 History release cholecalciferol (vitamin D3) 25 2,000 units PO BID cap 09/17/18 09/11/19 History mcg (1,000 unit) capsule OneTouch Delica Plus Lancet 30 #400 ea NS 12/23/18 09/11/19 Rx gauge OneTouch Verio test strips #400 ea NS 12/23/18 09/11/19 Rx potassium chloride 20 mEq 20 meq PO BID 02/25/19 09/11/19 History tablet,extended release albuterol sulfate 90 mcg/actuation 1 puffs INH QID #18 gm 03/26/19 09/11/19 Rx aerosol inhaler sacubitril 97 mg-valsartan 103 mg 1 tab PO BID tab 04/10/19 09/11/19 History tablet nitroglycerin [Nitrostat] 0.4 mg SUBLINGUAL UD PRN 04/24/19 09/11/19 History metolazone 5 mg PO MOTH 04/29/19 09/11/19 History Oxygen Home #1 ea 05/19/19 09/11/19 Rx fluticasone 250 mcg-salmeterol 50 1 puffs INH BID #60 ea 05/23/19 09/11/19 Rx mcg/dose blistr powdr for inhalation dulaglutide 1.5 mg/0.5 mL 1.5 mg SQ WE #2 ml 06/25/19 09/11/19 Rx subcutaneous pen injector carisoprodol [Soma] 350 mg PO HS PRN 07/27/19 09/11/19 History metoprolol succinate [Toprol XL] 200 mg PO HS 07/27/19 09/11/19 History ketoconazole 1 appln TOP BID #30 gm 08/30/19 09/11/19 Rx torsemide 40 mg PO BID #120 tab 08/30/19 09/11/19 Rx doxycycline monohydrate 100 mg PO BID #20 cap 09/09/19 09/11/19 Rx spironolactone 50 mg PO BID 09/11/19 09/11/19 History Past Med/Surg History Medical History (Updated 09/11/19 @ 19:51 by Tonja Cadet MD) Chronic respiratory failure 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 Underwent procedure without any complications monitored over night and discharged home. Obstructive sleep apnea SOB (shortness of breath) (Inactive) Umbilical hernia (Inactive) Vitamin D insufficiency Previously deficient, taking Vit D supplementation Surgical History History of carpal tunnel surgery History of cholecystectomy S/P tonsillectomy Family History Father , age 57 of an ME. Heart disease Myocardial infarction Mother , age 67 of a ruptured neck vessel Sudden Other Depression Lung disease No pertinent family history Denies family history of Ovarian cancer Prostate cancer Breast cancer Colorectal cancer Social History Smoking Status: Unknown if ever smoked Age Started Using Tobacco: 14; Age Quit Using Tobacco: 18; Cigarettes Per Day: 40-50; Second Hand Exposure: No; Hx Alcohol Use: No Hx Substance Use: No Preferred Language: Romanian Communication Ability: Effective Visual Impairment: No Limitations Hearing Ability: Normal Tipple Mechanic Required: No Beliefs That Will Affect Care: None marital status: Current Living Situation: Spouse current occupational status: unemployed How many Children do You have: 0 Other Information That Helps Us Care for You: No Feels Safe at Home: Yes Safety Concerns: Feels Safe At This Time Childhood Exposure to Second-Hand Smoke: Yes Dental Care, Regularly: Yes Physical Activity Frequency: Does not Exercise Review of Systems Review of Systems: All systems reviewed & are unremarkable except as noted in HPI & below Physical Exam Physical Exam: GENERAL : Somnolent. Morbidly obese. EYES: No icterus, gaze conjugate. Pupils equal round and reactive to light NOSE: No evidence of epistaxis. Nasal cannula is in place. MOUTH: No lesions or candidiasis. Mucosa is moist NECK: Supple. No stridor LUNGS: Coarse crackles at the bilateral bases HEART: Regular, tachycardic at 113 bpm ABDOMEN: Soft, protuberant, ND, BS Present. Patient complains of some mild tenderness with deep palpation. EXTREMITIES: Trace bilateral LE edema, pedal pulses intact and equal bilaterally. Patient does have evidence of some chronic venous stasis of bilateral lower extremities. Left lower extremity with recent cellulitis shows no significant erythema or warmth. There are no areas of open draining. There are no bullae. NEURO: A&OX3. Patient has some trouble with his history including medications. He is drowsy and fell asleep several times during our discussion but is easily aroused and oriented. He follows commands. Pupils are equal round and reactive to light. Strength appears to be equal and appropriate to the bilateral upper and lower extremities. No specific neurological deficits are identified. Results & Data Results & Data ([facility]) Vital Signs (Past 12 Hours) Vital Signs Temp Pulse Resp BP Pulse Ox 09/11/19 17:01 89 19 155/122 H 97 09/11/19 17:00 102 H 26 H 96 09/11/19 16:31 83 16 96 09/11/19 16:30 95 H 15 169/120 H 95 09/11/19 16:00 96 H 20 158/117 H 96 09/11/19 15:32 95 H 20 157/103 H 97 09/11/19 15:30 103 H 22 93 09/11/19 15:14 104 H 23 149/96 H 93 09/11/19 15:01 97 H 20 160/133 H 95 09/11/19 15:00 102 H 22 92 09/11/19 14:50 99 H 18 141/106 H 95 09/11/19 14:24 112 H 26 H 96 09/11/19 13:51 102 H 22 196/165 H 97 09/11/19 13:00 101 H 28 H 182/131 H 96 09/11/19 12:56 103 H 28 H 180/129 H 96 09/11/19 12:55 104 H 28 H 95 09/11/19 12:25 87 L 09/11/19 11:46 36.5 C 101 H 22 187/132 H 93 Laboratory Results 09/11/19 12:50 09/11/19 12:50 INR 1.1 (0.9-1.1) 09/11/19 12:50 Diagnostic Findings US venous doppler LE LT CLINICAL HISTORY: pain swelling COMPARISON STUDY: 11/26/2018 FINDINGS: Real-time and color flow Doppler imaging were performed. Flow was seen within the femoral, popliteal and calf veins with no intraluminal thrombus demonstrated. The saphenous vein is patent. IMPRESSION: No evidence of left lower extremity DVT. Electronically signed by: Garrett Muniz M.D. 09/11/2019 1:50 PM XR chest 1V portable HISTORY: 43 years-old Male Chest Pain acute atypical chest pain COMPARISON: Chest radiograph 08/28/2019 TECHNIQUE: Portable AP view of the chest FINDINGS: Cardiac silhouette is enlarged. Single lead left subclavian pacer. No pneumotho rax. Pulmonary vascular congestion with new interstitial opacities. Small pleural effusions with mild bibasilar densities. Bones appear grossly intact. IMPRESSION: 1. Cardiomegaly with pulmonary edema. 2. Trace pleural effusions with mild bibasilar consolidation. Electronically signed by: Petr Irby M.D. 09/11/2019 12:58 PM Code Status & VTE Plan Code Status Full resuscitation VTE Prophylaxis Plan VTE Prophylaxis will be ordered: Yes Supervising Physician Co-Signing Physician Notes LELAND Supervision Note: I personally saw and examined the patient. I verified all caraballo points and agree with LELAND Emery with the following exceptions and/or additions: Patient is a 43-year-old male well-known to the [facility] hospitalist group with extensive history as above and known for noncompliance with medications and fluid and dietary restrictions. He presents again with another episode of acute on chronic combined systolic and diastolic CHF as well as hypertensive urgency. He states that he is taking all his medications as prescribed since last discharge a week and a half ago. Denies chest pain but felt short of breath. Blood pressures were significantly elevated upon arrival. His hemoptysis is chronic. History and ROS reviewed as above Vitals reviewed Gen: AAOx3, NAD, morbidly obese HEENT: Anicteric sclerae, EOMI CV: RRR no mgr nl S1S2 Pulm: Diminished breath sounds throughout due to body habitus, bibasilar crackles Abd: +BS soft NT ND no masses or hernias Ext: 1+ pitting edema of the legs bilaterally Skin: No rashes, warm/dry, left anterior tibia with very minimal erythema and a 10 cm patch Neuro: Full strength throughout Laboratory values reviewed Chest x-ray reviewed 43-year-old male here with acute on chronic combined systolic and diastolic CHF as well as hypertensive urgency -Continue to control blood pressure as noted above, IV hydralazine as needed and can add on p.o. hydralazine perhaps twice daily although compliance is an issue -We will diurese with IV Lasix 40 mg twice daily although may need to increase this to 82 achieve effective diuresis PG Care Time/CCT Total # of Minutes Spent Total Time Spent with Patient: Total time spent is greater than 50% in coordi nation of care (as documented) at patient's floor/unit and/or counseling patient: 60 minutes including discussion with attending Coding Level of Care Code 21245 Initial Inpt Care Lvl 3 Diagnoses Hypertensive urgency I16.0 Hemoptysis R04.2 Chronic respiratory failure J96.10 Combined systolic and diastolic heart failure I50.41 Heart failure chronicity: acute Obstructive sleep apnea G47.33 Diabetes mellitus type 2 with complications E11.8 NICM (nonischemic cardiomyopathy) I42.8 Cellulitis of left leg L03.116 DVT prophylaxis Z29.9 Time Spent (min) 60 (1) Combined systolic and diastolic heart failure Heart failure chronicity: acute Qualified Code(s): I50.41 - Acute combined systolic (congestive) and diastolic (congestive) heart failure
[2019-09-11] MEDS ORDERED: ALBUT/IPRATROP 3MG/0.5MG NEB 3 ML VIAL NEB PRN (19:25)
[2019-09-11] MEDS ORDERED: CARBOHYDRATES FOR HYPOGLYCEMIA PO PRN (19:25)
[2019-09-11] MEDS ORDERED: OXYGEN HOME SCH (19:25)
[2019-09-11] MEDS ORDERED: POLYETHYLENE (MIRALAX) 17 GM PACK PO PRN (19:25)
[2019-09-11] MEDS ORDERED: CARISOPRODOL 350 MG TABLET PO PRN (19:25)
[2019-09-11] MEDS ORDERED: HydrALAZINE HCL 20 MG/ML VIAL IV PRN (19:25)
[2019-09-11] MEDS ORDERED: GLUCOSE 10 TABS/TUBE PO PRN (19:25)
[2019-09-11] MEDS ORDERED: GLUCOSE 40% GEL 15 GM TUBE PO PRN (19:25)
[2019-09-11] MEDS ORDERED: MAGNESIUM HYDROXIDE SUSP 30 ML UDC PO PRN (19:25)
[2019-09-11] MEDS ORDERED: DEXTROSE 50% 50 ML SYRINGE IV PRN (19:25)
[2019-09-11] MEDS ORDERED: GLUCAGON FOR INJ 1 MG VIAL SQ PRN (19:25)
[2019-09-11] MEDS ORDERED: NITROGLYCERIN SL 0.4 MG/TAB TAB SL PRN (19:25)
[2019-09-11] MEDS ORDERED: PHARMACY GLYCEMIC MGMT CONSULT PRN (19:56)
[2019-09-11] MEDS ORDERED: FUROSEMIDE 40 MG/4 ML VIAL IV SCH (21:00)
[2019-09-11] MEDS: PANTOprazole 40 MG TAB PO SCH (21:03)
[2019-09-11] MEDS: FUROSEMIDE 40 MG in SYRINGE 0 ML IV SCH (21:03)
[2019-09-11] MEDS: DOXYCYCLINE HYCLATE 100 MG CAP PO SCH (21:04)
[2019-09-11] MEDS: SACUBITRIL-VALSARTAN 97-103 MG TAB PO SCH (21:04)
[2019-09-11] MEDS: METOPROLOL SUCC 50MG EXT REL TAB PO SCH (21:04)
[2019-09-11] MEDS: POTASSIUM CHLORIDE 20 MEQ TABCR PO SCH (21:05)
[2019-09-11] MEDS: CHOLECALCIFEROL 1,000 UNITS 25 MCG TAB PO SCH (21:05)
[2019-09-11] MEDS: HEPARIN SOD 5,000 UNIT/0.5 ML VIAL SQ SCH (21:06)
[2019-09-11] MEDS: INSULIN ASPART 100 UNITS/ML 3 ML PEN SC SCH (21:07)
[2019-09-11] MEDS: SPIRONOLACTONE 25 MG TAB PO SCH (21:19)
[2019-09-11] MEDS ORDERED: HEPARIN SODIUM (PORCINE) 5,000 UNITS in SYRINGE 0 ML SQ SCH (22:00)
[2019-09-12] MEDS ORDERED: INSULIN ASPART 100 UNITS/ML 3 ML PEN SC SCH (02:00)
[2019-09-12] MEDS: HEPARIN SOD 5,000 UNIT/0.5 ML VIAL SQ SCH ×3 (05:40→21:24)
[2019-09-12 07:14] LABS: Basophils # (auto) 0.02 K/uL (0-0.2); Basophils % (auto) 0.2 %; Eosinophils # (auto) 0.11 K/uL (0-0.5); Eosinophils % (auto) 1.1 %; Hematocrit (blood only) 42.6 % (42-52); Hemoglobin 14.2 g/dL (14.0-18.0); Immature Granulocytes # (auto) 0.04 K/uL (0.00-0.02); Immature Granulocytes % (auto) 0.4 %; Lymphocytes # (auto) 2.03 K/uL (1.2-3.4); Lymphocytes % (auto) 21.1 %; Mean Corpuscular Hemoglobin 26.6 pg (25-34); Mean Corpuscular Hgb Conc 33.3 g/dL (32-36); Mean Corpuscular Volume 79.8 fL (80-100); Mean Platelet Volume 10.1 fL (7.4-10.4); Monocytes # (auto) 0.81 K/uL (0.11-0.59); Monocytes % (auto) 8.4 %; Neutrophils # (auto) 6.59 K/uL (1.4-6.5); Neutrophils % (auto) 68.8 %; Platelet Count 186 K/uL (130-400); RDW Coefficient of Variation 17.4 % (11.5-14.5); Red Blood Count 5.34 M/uL (4.7-6.1)
--- NOTE | 2019-09-12 07:30 | XRay Report ---
XR chest 1V portable HISTORY: 43 years-old Male Hypoxia acute hypoxia COMPARISON: Chest radiograph 09/11/2019 TECHNIQUE: Portable AP view of the chest FINDINGS: Left subclavian pacer. Cardiomegaly. Pulmonary vascular congestion with interstitial coarsening, mild ly improved. No pneumothorax. Trace pleural effusions with mild bibasilar opacities, similar to sligh tly improved from comparison. Bones appear grossly intact. IMPRESSION: 1. Cardiomegaly with mildly improved pulmonary edema. 2. Trace pleural effusions with mild bibasilar opacities suggestive of probable atelectasis, also mil dly improved from comparison. ACT 112: Negative or not required by law. The above report was generated using voice recognition software. It may contain grammatical, syntax o r spelling errors. Electronically signed by: Petr Irby M.D. 09/12/2019 7:29 AM
[2019-09-12 07:43] LABS: BUN Creatinine Ratio 10.8 (10-20); Calcium 8.3 mg/dl (8.5-10.1); Creatinine Clr Calc Pharmacy 153.8 ml/min; Est GFR (African American) 118.5; Est GFR (Non-African American) 102.2; Potassium 3.6 mmol/L (3.5-5.1)
[2019-09-12 08:01] LABS: Estimated Average Glucose 180 mg/dl; Hemoglobin A1C 7.9 % (4.5-5.6)
[2019-09-12] MEDS: INSULIN HUMAN NPH SC SCH ×2 (08:07→18:12)
[2019-09-12] MEDS: POTASSIUM CHLORIDE 20 MEQ TABCR PO SCH ×2 (08:08→21:21)
[2019-09-12] MEDS: INSULIN ASPART 100 UNITS/ML 3 ML PEN SC SCH ×4 (08:08→21:24)
[2019-09-12] MEDS: SACUBITRIL-VALSARTAN 97-103 MG TAB PO SCH ×2 (08:08→21:21)
[2019-09-12] MEDS: PANTOprazole 40 MG TAB PO SCH ×2 (08:08→21:22)
[2019-09-12] MEDS: DOXYCYCLINE HYCLATE 100 MG CAP PO SCH ×2 (08:08→21:22)
[2019-09-12] MEDS: ASPIRIN 81 MG ECTAB PO SCH (08:08)
[2019-09-12] MEDS: CHOLECALCIFEROL 1,000 UNITS 25 MCG TAB PO SCH ×2 (08:09→21:23)
[2019-09-12] MEDS: FLUTICASONE/VILANTEROL 100/25MCG 14 PUFFS/INHALER INH SCH (08:09)
[2019-09-12] MEDS: SPIRONOLACTONE 25 MG TAB PO SCH ×2 (08:09→17:19)
[2019-09-12] MEDS ORDERED: FLUTICASONE/VILANTEROL 200/25MCG 14 PUFFS/INHALER INH SCH (09:00)
[2019-09-12] MEDS: FUROSEMIDE 40 MG in SYRINGE 0 ML IV SCH ×2 (09:27→17:19)
--- NOTE | 2019-09-12 12:20 | Pharmacy Report ---
Pharmacy Glycemic Short Note 2 - Date of Service September 12, 2019 - Glycemic Short BSG Results (Last 24 hours): 09/11/19 09/11/19 09/11/19 12:50 13:54 19:45 Glucose 172 H POC Glucose 154 H 156 H 09/12/19 09/12/19 09/12/19 03:24 06:57 07:29 Glucose 137 H POC Glucose 136 H 133 H 09/12/19 11:37 Glucose POC Glucose 157 H OUTPATIENT ANTIDIABETIC REGIMEN: * Humalog 50/50- reported taking as 40 units with breakfast and dinner at Endocrinology visit 08/05/19 * Reportedly told nurse he was taking 50 units at night and another pharmacist 100 units in the PM but has not been taking for the past week but BSGs have been controlled. * A1c 7.8% on 07/28/19 ASSESSMENT: * Mr. Huff is admitted with , reported he has not been taking his humalog recently * On previous admission, patient is well controlled with NPH 8 units BID w/ breakfast and dinner and novolog parameters correction factor 25 and carb ratio of 9. Will begin these parameters * Fasting this morning 133, lunch BSG 157 PLAN FOR INPATIENT GLYCEMIC CONTROL: * Basal insulin * NPH 8 units with breakfast and dinner * Bolus insulin * NovoLog per scale ACHS or Q6hrs while NPO * Goal Range: Low 110 mg/dL - High 140 mg/dL * Correction Factor: 25 mg/dL/unit * Nutritional / Prandial insulin per carb ratio of 1 unit per 9 grams CHO consumed PLAN FOR DISCHARGE: *
[2019-09-12] MEDS: METOPROLOL SUCC 50MG EXT REL TAB PO SCH (21:22)
--- NOTE | 2019-09-12 22:34 | Hospitalist Progress Note ---
Date of Service September 12, 2019 Assessment & Plan (1) Hypertensive urgency: B/P is better controlled now. (2) Hemoptysis: This is chronic. will have him followup with pulmonary as an outpatient. (3) Chronic respiratory failure: likely secondary to problem below. (4) Combined systolic and diastolic heart failure: Patient has multiple admissions this hospital year for acute decompensation of chronic heart failure In the meantime continue with diuretics, supplemental oxygen, and home medications No indication for repeat echocardiogram at this time Echocardiogram 04/01/2019: Left ventricle is moderately dilated Normal left ventricular wall thickness Moderate to severe global hypokinesis of the left ventricle Left ventricular ejection fraction 25 to 30% No significant valvular disease No hemodynamically significant valvular aortic stenosis Patient has improved with diuretics. (5) Obstructive sleep apnea: (6) Diabetes mellitus type 2 with complications: continue monitoring, on sliding scale (7) NICM (nonischemic cardiomyopathy): as stated above. (8) Cellulitis of left leg: no signs of cellulits at this time. (9) DVT prophylaxis: Heparin SQ Disposition-admit to PCU Admission and Anticipated Discharge Date Admission Date: September 11, 2019 Subjective Patient reports feeling better. He has no new complaints. Review of Systems Review of Systems: All systems reviewed & are unremarkable except as noted in HPI & below Physical Exam Physical Exam: GENERAL : Awke, Morbidly obese. EYES: No icterus, gaze conjugate. Pupils equal round and reactive to light NOSE: No evidence of epistaxis. Nasal cannula is in place. MOUTH: No lesions or candidiasis. Mucosa is moist NECK: Supple. No stridor LUNGS: Coarse crackles at the bilateral bases HEART: RRR ABDOMEN: Soft, protuberant, ND, BS Present. NO LONGER TENDER EXTREMITIES: mild edema in bialteral lower extremities NEURO: A&OX3. PERRLA/ Results & Data Results & Data ([facility]) Vital Signs (Past 12 Hours) Vital Signs Temp Pulse Resp BP Pulse Ox 09/12/19 20:40 36.5 C 80 20 100/70 96 09/12/19 15:30 36.3 C L 78 20 122/86 96 09/12/19 12:01 36.5 C 81 19 138/91 96 PG Care Time/CCT Total # of Minutes Spent Total Time Spent with Patient: Total time spent is greater than 50% in coordination of care (as documented) at patient's floor/unit and/or counseling patient: Coding Level of Care Code 01778 Subseq Hosp Care Lvl 3 Diagnoses Hypertensive urgency I16.0 Hemoptysis R04.2 Chronic respiratory failure J96.10 Combined systolic and diastolic heart failure I50.41 Heart failure chronicity: acute Obstructive sleep apnea G47.33 Diabetes mellitus type 2 with complications E11.8 NICM (nonischemic cardiomyopathy) I42.8 Cellulitis of left leg L03.116 DVT prophylaxis Z29.9 Time Spent (min) 35 (1) Combined systolic and diastolic heart failure Heart failure chronicity: acute Qualified Code(s): I50.41 - Acute combined systolic (congestive) and diastolic (congestive) heart failure
[2019-09-13] MEDS: HEPARIN SOD 5,000 UNIT/0.5 ML VIAL SQ SCH ×2 (05:13→12:32)
[2019-09-13 06:04] LABS: Basophils # (auto) 0.03 K/uL (0-0.2); Basophils % (auto) 0.3 %; Eosinophils # (auto) 0.15 K/uL (0-0.5); Eosinophils % (auto) 1.5 %; Hemoglobin 14.2 g/dL (14.0-18.0); Immature Granulocytes # (auto) 0.09 K/uL (0.00-0.02); Immature Granulocytes % (auto) 0.9 %; Lymphocytes # (auto) 2.36 K/uL (1.2-3.4); Mean Corpuscular Hemoglobin 26.1 pg (25-34); Mean Corpuscular Hgb Conc 32.3 g/dL (32-36); Mean Corpuscular Volume 80.9 fL (80-100); Mean Platelet Volume 10.7 fL (7.4-10.4); Monocytes # (auto) 0.65 K/uL (0.11-0.59); Monocytes % (auto) 6.6 %; Neutrophils # (auto) 6.54 K/uL (1.4-6.5); Neutrophils % (auto) 66.7 %; Nucleated RBC # (auto) 0.02 K/uL (0-0); Nucleated RBC % (auto) 0.2 %; Platelet Count 192 K/uL (130-400); RDW Coefficient of Variation 17.3 % (11.5-14.5); RDW Standard Deviation 50.7 fL (36.4-46.3); Red Blood Count 5.44 M/uL (4.7-6.1); White Blood Count 9.82 K/uL (4.8-10.8)
[2019-09-13 06:39] LABS: Calcium 8.4 mg/dl (8.5-10.1); Creatinine Clr Calc Pharmacy 126.3 ml/min; Est GFR (African American) 93.4; Est GFR (Non-African American) 80.6; Potassium 3.4 mmol/L (3.5-5.1)
--- NOTE | 2019-09-13 07:02 | Electrocardiogram Report ---
Test Reason : Blood Pressure : / mmHG Vent. Rate : 079 BPM Atrial Rate : 079 BPM P-R Int : 156 ms QRS Dur : 108 ms QT Int : 454 ms P-R-T Axes : 018 014 171 degrees QTc Int : 520 ms Sinus rhythm with occasional Premature ventricular complexes Possible Left atrial enlargement Minimal voltage criteria for LVH, may be normal variant ( [place] product ) Abnormal QRS-T angle, consider primary T wave abnormality Prolonged QT Abnormal ECG When compared with ECG of 11-SEP-2019 12:42, Premature ventricular complexes are now Present Confirmed by Harry Bush ([id number]) on 09/13/2019 7:02:11 AM Referred By: Alejandra Geronimo Confirmed By:Harry Bush
[2019-09-13] MEDS: SPIRONOLACTONE 25 MG TAB PO SCH (07:45)
[2019-09-13] MEDS: ASPIRIN 81 MG ECTAB PO SCH (07:46)
[2019-09-13] MEDS: DOXYCYCLINE HYCLATE 100 MG CAP PO SCH (07:46)
[2019-09-13] MEDS: CHOLECALCIFEROL 1,000 UNITS 25 MCG TAB PO SCH (07:46)
[2019-09-13] MEDS: PANTOprazole 40 MG TAB PO SCH (07:47)
[2019-09-13] MEDS: POTASSIUM CHLORIDE 20 MEQ TABCR PO SCH (07:47)
[2019-09-13] MEDS: SACUBITRIL-VALSARTAN 97-103 MG TAB PO SCH (07:47)
[2019-09-13 07:48] VITALS: O2SAT 98
[2019-09-13] MEDS: FUROSEMIDE 40 MG in SYRINGE 0 ML IV SCH (07:48)
[2019-09-13] MEDS: INSULIN HUMAN NPH SC SCH (07:50)
[2019-09-13] MEDS: INSULIN ASPART 100 UNITS/ML 3 ML PEN SC SCH ×2 (07:52→12:32)
[2019-09-13] MEDS: FLUTICASONE/VILANTEROL 100/25MCG 14 PUFFS/INHALER INH SCH (09:26)
[2019-09-13 11:41] VITALS: BP 121/78; PULSE 76; TEMP 97.9
--- NOTE | 2019-09-13 13:46 | Electrocardiogram Report ---
Test Reason : Blood Pressure : / mmHG Vent. Rate : 074 BPM Atrial Rate : 074 BPM P-R Int : 162 ms QRS Dur : 108 ms QT Int : 462 ms P-R-T Axes : 023 -25 153 degrees QTc Int : 512 ms Sinus rhythm with frequent Premature ventricular complexes Possible Left atrial enlargement Incomplete left bundle block Nonspecific ST and T wave abnormality Prolonged QT Abnormal ECG When compared with ECG of 12-SEP-2019 07:53, QRS axis Shifted left T wave inversion more evident in Lateral leads Confirmed by Rodney Cary ([id number]) on 09/13/2019 1:45:59 PM Referred By: Alejandra Geronimo Confirmed By:Rodney Cary
[2019-09-15] MEDS ORDERED: metOLazone 5 MG TABLET PO SCH (09:00)
[2019-09-17] MEDS ORDERED: NON-FORMULARY MEDICATION (Dulaglutide [Trulicity] 1.5 MG) SQ SCH (15:31)
--- NOTE | 2019-09-21 21:42 | Discharge Summary ---
Date of Service September 13, 2019 Admission HPI Per Admitting Provider Attending: Dr. Cadet Is a 43-year-old male with multiple admissions to [facility] for shortness of breath and hemoptysis. The patient has a past medical history including ischemic cardiomyopathy, recent cellulitis of the left leg, microcytic anemia, history of melena, hypertension, retinopathy, diabetes mellitus type 2, combined systolic and diastolic heart failure, COPD, remote trivial tobacco history, obstructive sleep apnea, chronic supplemental oxygen use, GERD, anxiety, morbid obesity spondylolisthesis, placement of AICD. The patient states that he has shortness of breath which was progressive over the last 2 to 3 days. He also reports that this morning he coughed up approximately 1 tablespoon of bright red clotted blood. He reports he has had multiple episodes of coughing up blood and that he has had bronchoscopy twice in last 2 years and was told that "it was not the lungs". The patient has had multiple CT scans of the chest and all of been negative for pulmonary emboli. In the ER today he was also negative for deep vein thrombosis by duplex scan. The patient does have untreated sleep apnea and states that he was not able to tolerate the mask. There was discussion about tracheostomy in the past. The patient does use chronic supplemental oxygen 4 L/min via nasal cannula during sleep. Patient takes furosemide 40 mg p.o. twice daily twice daily, spironolactone 50 mg p.o. twice daily, metolazone 5 mg p.o. on Mondays and for his fluid overload. The patient has uncontrolled blood pressure. Home medications include metoprolol succinate 200 mg p.o. nightly and sacubitril 97 mg/valsartan 103 mg tablet p.o. twice daily. In the emergency room the patient was found to have a presenting blood pressure of 200/100. He was given clonidine Lasix and hydralazine and repeat blood pressure was 265/165. The patient had no chest pain or tightness. Initial troponin was 0.024. Repeat troponin II hours later was 0.017. At the time of my examination the patient had a presenting blood pressure of 160/133. His final blood pressure was then 149/96. Hemoglobin A1c is typically in the 7.0-7.8 range. Most recent A1c was 07/28/2019 and was 7.8. The patient's most recent admission was 08/28/2019 for acute respiratory distress and encephalopathy. He was treated with diuretics and antihypertensives and improved significantly. He also had left lower leg cellulitis and was treated on doxycycline and sent home on this. The patient is and has stepchildren that are age 22, 19, and 19. His helps to manage his medications and get him to his appointments. Principal Diagnosis combined systolic and diastolic CHF Discharge Exam GENERAL : Awake, Morbidly obese. EYES: No icterus, gaze conjugate. Pupils equal round and reactive to light NOSE: No evidence of epistaxis. Nasal cannula is in place. MOUTH: No lesions or candidiasis. Mucosa is moist NECK: Supple. No stridor LUNGS: improved breath sounds. HEART: RRR ABDOMEN: Soft, protuberant, ND, BS Present. NO LONGER TENDER EXTREMITIES: mild edema in bilateral lower extremities NEURO: A&OX3. PERRLA/ Discharge Data Allergies Allergy/AdvReac Type Severity Reaction Status Date / Time ceftriaxone Allergy Severe SHORTNESS Verified 09/21/19 10:14 OF BREATH lidocaine Allergy Severe SHORTNESS Verified 09/21/19 10:14 OF BREATH, diaphoretic, hives procaine Allergy Severe SHORTNESS Verified 09/21/19 10:14 OF BREATH, diaphoretic, hives amoxicillin Allergy Intermediate HIVES/FACIAL Verified 09/21/19 10:14 SWELLING clavulanic acid Allergy Intermediate HIVES/FACIAL Verified 09/21/19 10:14 SWELLING lisinopril Allergy Intermediate HIVES Verified 09/21/19 10:14 acetaminophen AdvReac Mild NAUSEA Verified 09/21/19 10:14 albuterol AdvReac Mild proair Verified 09/21/19 10:14 "trouble taking breaths" Consultations 09/11/19 14:27 ED Decision to Admit Stat Ordered Studies 09/11/19 12:24 US venous doppler LE LT Stat Hospital Course (1) Hypertensive urgency: B/P is better controlled now. (2) Hemoptysis: This is chronic. will have him followup with pulmonary as an outpatient. (3) Chronic respiratory failure: likely secondary to problem below. (4) Combined systolic and diastolic heart failure: Patient has multiple admissions this hospital year for acute decompensation of chronic heart failure In the meantime continue with diuretics, supplemental oxygen, and home medi cations No indication for repeat echocardiogram at this time Echocardiogram 04/01/2019: Left ventricle is moderately dilated Normal left ventricular wall thickness Moderate to severe global hypokinesis of the left ventricle Left ventricular ejection fraction 25 to 30% No significant valvular disease No hemodynamically significant valvular aortic stenosis Patient has improved with diuretics. Had long discussion with patient in regards to compliance. And updated patient on his condition. (5) Obstructive sleep apnea: (6) Diabetes mellitus type 2 with complications: continue monitoring, on sliding scale (7) NICM (nonischemic cardiomyopathy): as stated above. (8) Cellulitis of left leg: no signs of cellulits at this time. (9) DVT prophylaxis: Total Time Total Time Spent Total Time Spent (In Minutes): 32 Total Time Includes: Examination of the Patient, Discharge Planning and Medication Reconciliation Discharge Plan Discharge Items Patient Disposition: Home - Self-Care Reason For Visit: HYPERTENSIVE URGENCY Discharge Diagnosis: CHF Condition on Discharge: Good Activity: Resume your previous activity Non-emergency contact: Primary Care Provider Call non-emergency contact if: you have any medication questions Follow-up/Referrals: PCP,NO [Physician] - Diet: Heart Healthy Fluids: 1500ml (6 cups) Diet Texture: Dental soft (bite-sized) Addtl Attending Provider Instructions: Call your Primary Care doctor if any of the following symptoms or problems start or get worse: * Shortness of breath or difficulty breathing * Wake up at night short of breath * Chest pain * Cough * Swelling of your hands, feet, or legs * More fatigued or tired with your normal activity * Palpitations - sudden fast heart beats WEIGHT * Weigh yourself every morning after using the bathroom. * Use the same scale. * Wear the same amount of clothing. * Write your weight down on a chart. * Call your Primary Care doctor if you gain more than 2-3 pounds in 1-2 days. MEDICATIONS * Use this discharge instruction sheet for medication instructions. * Take your medications at the time your doctor ordered. * Do not skip a dose of your medicines. * If you miss a dose of medicine, take it as soon as possible, but DO NOT DOUBLE A DOSE. * Read your medicine information when you get home. * Know all of the side effects of your medicine. If in doubt, ask your pharmacist * Call your Primary Care doctor's office if you have any side effects. * Be sure all of your doctors know what medicine and herbs you take (including cold, flu, and herbal medicine). Take the following with you to your follow-up doctor appointments: * Weight Chart * Medication List * List of questions Do not drink excessive alcohol, beer or wine. Pending Studies at Discharge: No Stand-Alone Forms: My [facility] [employer], Smoking Cessation Medications and DC Order Prescriptions: Continued (DME) lancets [OneTouch Delica Plus Lancet] 30 gauge misc See Dose Instructions .ROUTE .MEDSUPPLY Qty: 400 RF: 3 (DME) OneTouch Verio test strips strip See Dose Instructions .ROUTE .MEDSUPPLY Qty: 400 RF: 3 Trulicity 1.5 mg/0.5 mL pen injector 1.5 mg SQ WE Qty: 2 RF: 5 potassium chloride [K-Tab] 20 mEq tablet extended release 20 meq PO BID RF: 0 albuterol sulfate [Ventolin HFA] 90 mcg/actuation HFA aerosol inhaler 1 puffs INH QID Qty: 18 RF: 2 (DME) Oxygen Home Liters Per Minute See Rx Instructions .ROUTE .MEDSUPPLY Qty: 1 RF: 5 esomeprazole magnesium [Nexium] 20 mg capsule,delayed release(DR/EC) 20 mg PO BID RF: 0 aspirin [Aspirin Low Dose] 81 mg tablet,delayed release (DR/EC) 81 mg PO QAM RF: 0 nitroglycerin [Nitrostat] 0.4 mg tablet, sublingual 0.4 mg sublingual UD PRN (Reason: Chest Pain) RF: 0 doxycycline monohydrate 100 mg capsule 100 mg PO BID Qty: 20 RF: 0 spironolactone 25 mg tablet 50 mg PO BID RF: 0 cholecalciferol (vitamin D3) [Vitamin D3] 1,000 unit capsule 2,000 units PO BID RF: 0 Entresto 97-103 mg tablet 1 tab PO BID RF: 0 metolazone 5 mg tablet 5 mg PO MOTH RF: 0 carisoprodol [Soma] 350 mg tablet 350 mg PO HS PRN (Reason: muscle pain) RF: 0 metoprolol succinate [Toprol XL] 200 mg tablet extended release 24 hr 200 mg PO HS RF: 0 torsemide 20 mg tablet 40 mg PO BID Qty: 120 RF: 2 No Action budesonide 0.25 mg/2 mL suspension for nebulization 0.25 mg inhalation Q12 RF: 0 Breo Ellipta 200-25 mcg/dose blister with device 1 inh INHALATION QAM RF: 0 Discharge Orders: Discharge Order (Routine); Ordered 09/13/19 Ordered By: Shemar Talamantes/Other Patient Handouts: Managing Type 2 Diabetes, Managing Diabetes: The A1C Test Admission Data Admit Date/Time: 09/11/19 15:47 Attending Provider: Shemar Syk Admit Provider: Tonja Cadet Primary Care Provider: Alejandra Geronimo Other Providers: Tonja Cadet Other Interventions: Discharge Summary Assessment (RN) Last Done: 09/13/19 13:52 DC Date/Time DO NOT enter until pt leaves facility: 09/13/19 14:18 Coding Level of Care Code D/C Day Management >30 mins Diagnoses Hypertensive urgency I16.0 Hemoptysis R04.2 Chronic respiratory failure J96.10 Combined systolic and diastolic heart failure I50.41 Heart failure chronicity: acute Obstructive sleep apnea G47.33 Diabetes mellitus type 2 with complications E11.8 NICM (nonischemic cardiomyopathy) I42.8 Cellulitis of left leg L03.116 DVT prophylaxis Z29.9
== END 2019-09-13 14:18 | disposition home or self-care (01) | DRG 304 ==
LOC: ED 11:43 → SUATTDRO 15:47 → 2S 15:47 → INTOOBSV 15:47 → 2S 17:28

== ENCOUNTER 2019-09-21 09:10 | Observation (INO) ==
[2019-09-21] MEDS ORDERED: FUROSEMIDE 40 MG/4 ML VIAL IV STA ×2 (09:36→12:35)
--- NOTE | 2019-09-21 09:41 | Emergency Department Note ---
History of Present Illness General Chief complaint: Shortness of Breath/Dyspnea Time Seen by Provider: 09/21/19 09:17 Source: patient Mode of arrival: ambulatory Limitations: no limitations History of Present Illness Provider complaint: SOB, spitting up blood, R foot swelling, L leg rash, vision problems Onset (ago): day(s) 2 Maximum Pain Intensity: 6 Current Pain Intensity: 6 Quality: + burning Relieved By: + immobilization Exacerbated By: + movement Treatments prior to arrival: none This 43-year-old male patient well-known to the emergency department presents to the emergency department today via ambulance for evaluation of shortness of breath, spitting up blood, right foot swelling, left leg rash, and vision problems. Patient states symptoms been ongoing for approximately 2 days and worsening today when he spit up "a sink full of blood". The patient states he is spitting up blood-tinged sputum and shows me some in a bag which is consistent with this. Patient was recently admitted to the hospital here and was inpatient before being discharged approximately 1 week ago. He states he has been spitting up blood for several months now and notes it to be due to an unknown cause. 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 The patient states today was more blood than normal and he has also been experiencing lightheadedness and "blackouts", 2 last evening. He states that his vision has been off and he has been having difficulty watching TV, because his eyes rolled back into his head while watching the television. The patient states there is some nausea and he was having some vomiting with eating last week. He denies any recent fever. He states last night he was using his BiPAP and oxygen and continued to feel short of breath. He states he has been taking his medications as prescribed. He was feeling well prior to discharge from the hospital and was doing okay for a few days prior to the onset of the symptoms again. Patient states that his gang boss discussed placing him on a ventilator due to his "weak heart" in the future. Patient reports right foot swelling and rash on the left leg. These occurred a few days ago, and are not significantly abnormal to his normal complaints of these symptoms. Patient denies any outside exposures or exposures to COVID-19. Symptoms are very consistent with symptoms he has experienced in the past requiring hospitalization. He denies any acute chest pain, abdominal pain, diarrhea, constipation, weakness, numbness, tingling, or other associated symptoms. Home Medications Home Medications Medication Instructions Recorded Confirmed Type esomeprazole magnesium 20 mg 20 mg PO BID cap 09/05/18 09/21/19 History capsule,delayed release aspirin 81 mg tablet,delayed 81 mg PO QAM 09/17/18 09/21/19 History release cholecalciferol (vitamin D3) 25 2,000 units PO BID cap 09/17/18 09/21/19 History mcg (1,000 unit) capsule OneTouch Delica Plus Lancet 30 #400 ea NS 12/23/18 09/11/19 Rx gauge OneTouch Verio test strips #400 ea NS 12/23/18 09/11/19 Rx potassium chloride 20 mEq 20 meq PO BID 02/25/19 09/21/19 History tablet,extended release albuterol sulfate 90 mcg/actuation 1 puffs INH QID #18 gm 03/26/19 09/21/19 Rx aerosol inhaler sacubitril 97 mg-valsartan 103 mg 1 tab PO BID tab 04/10/19 09/21/19 History tablet nitroglycerin [Nitrostat] 0.4 mg SUBLINGUAL UD PRN 04/24/19 09/21/19 History metolazone 5 mg PO MOTH 04/29/19 09/21/19 History Oxygen Home #1 ea 05/19/19 09/11/19 Rx dulaglutide 1.5 mg/0.5 mL 1.5 mg SQ WE #2 ml 06/25/19 09/21/19 Rx subcutaneous pen injector carisoprodol [Soma] 350 mg PO HS PRN 07/27/19 09/21/19 History metoprolol succinate [Toprol XL] 200 mg PO HS 07/27/19 09/21/19 History torsemide 40 mg PO BID #120 tab 08/30/19 09/21/19 Rx doxycycline monohydrate 100 mg PO BID #20 cap 09/09/19 09/21/19 Rx spironolactone 50 mg PO BID 09/11/19 09/21/19 History budesonide 0.25 mg INHALATION Q12 09/21/19 09/21/19 History fluticasone furoate-vilanterol 1 inh INHALATION QAM 08/09/20 08/09/20 History [Breo Ellipta] Allergies Allergy/AdvReac Type Severity Reaction Status Date / Time ceftriaxone Allergy Severe SHORTNESS Verified 09/21/19 10:14 OF BREATH lidocaine Allergy Severe SHORTNESS Verified 09/21/19 10:14 OF BREATH, diaphoretic, hives procaine Allergy Severe SHORTNESS Verified 09/21/19 10:14 OF BREATH, diaphoretic, hives amoxicillin Allergy Intermediate HIVES/FACIAL Verified 09/21/19 10:14 SWELLING clavulanic acid Allergy Intermediate HIVES/FACIAL Verified 09/21/19 10:14 SWELLING lisinopril Allergy Intermediate HIVES Verified 09/21/19 10:14 acetaminophen AdvReac Mild NAUSEA Verified 09/21/19 10:14 albuterol AdvReac Mild proair Verified 09/21/19 10:14 "trouble taking breaths" Past Med/Surg History Medical History Chronic respiratory failure 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 Underwent procedure without any complications monitored over night and discharged home. Obstructive sleep apnea SOB (shortness of breath) (Inactive) Umbilical hernia (Inactive) Vitamin D insufficiency Previously deficient, taking Vit D supplementation Surgical History (Updated 09/21/19 @ 08:21 by Poornima Rocha MD) History of carpal tunnel surgery History of cholecystectomy S/P tonsillectomy Social History Smoking Status: Never smoker Age Started Using Tobacco: 14; Age Quit Using Tobacco: 18; Cigarettes Per Day: 40-50; Second Hand Exposure: No; Hx Alcohol Use: No Hx Substance Use: No Preferred Language: Ukrainian Communication Ability: Effective Visual Impairment: No Limitations Hearing Ability: Normal 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 Beliefs That Will Affect Care: None marital status: Current Living Situation: Spouse current occupational status: unemployed How many Children do You have: 0 Other Information That Helps Us Care for You: No Feels Safe at Home: Yes Safety Concerns: Feels Safe At This Time Childhood Exposure to Second-Hand Smoke: Yes Dental Care, Regularly: Yes Physical Activity Frequency: Does not Exercise Review of Systems A total of 10 systems reviewed and were otherwise negative Physical Exam Vital Signs Vital Signs - 24 hr 09/21/19 09:13 09/21/19 09:17 09/21/19 09:29 Temperature 36.4 C L Temperature Source Oral Pulse Rate 111 H 107 H 105 H Pulse Rate [Apical] Pulse Rate from SpO2 Sensor Respiratory Rate 36 H 29 H 32 H Blood Pressure 169/126 H 169/126 H Blood Pressure [Right Arm] Blood Pressure Mean 140 133 Blood Pressure Mean [Right Arm] Pulse Oximetry 88 L Oxygen Delivery Method Room Air Oxygen Flow Rate Sepsis Recent Fever Within 48 Hours No Sepsis New/Unexplained Change in Mental Status N/A Sepsis Action Taken by Nursing No Action Required 09/21/19 09:30 09/21/19 10:00 09/21/19 10:04 Temperature Temperature Source Pulse Rate 104 H 107 H 114 H Pulse Rate [Apical] 113 H Pulse Rate from SpO2 Sensor 107 H 114 H Respiratory Rate 24 32 H 27 H Blood Pressure 188/140 H Blood Pressure [Right Arm] 188/140 H Blood Pressure Mean 150 Blood Pressure Mean [Right Arm] 156 Pulse Oximetry 97 97 Oxygen Delivery Method Nasal Cannula Oxygen Flow Rate 5 5 Sepsis Recent Fever Within 48 Hours Sepsis New/Unexplained Change in Mental Status Sepsis Action Taken by Nursing 09/21/19 10:24 09/21/19 10:30 09/21/19 10:31 Temperature Temperature Source Pulse Rate 106 H 114 H 110 H Pulse Rate [Apical] 114 H Pulse Rate from SpO2 Sensor 106 H 93 H 109 H Respiratory Rate 33 H 33 H 35 H Blood Pressure 180/144 H 189/128 H Blood Pressure [Right Arm] 189/128 H Blood Pressure Mean 154 151 Blood Pressure Mean [Right Arm] 148 Pulse Oximetry 95 94 95 Oxygen Delivery Method Room Air Oxygen Flow Rate 5 5 5 Sepsis Recent Fever Within 48 Hours Sepsis New/Unexplained Change in Mental Status Sepsis Action Taken by Nursing 09/21/19 10:54 09/21/19 11:00 09/21/19 11:46 Temperature Temperature Source Pulse Rate 110 H 108 H 105 H Pulse Rate [Apical] Pulse Rate from SpO2 Sensor 109 H 108 H 68 Respiratory Rate 35 H 30 H 18 Blood Pressure 180/146 H 185/137 H Blood Pressure [Right Arm] Blood Pressure Mean 153 150 Blood Pressure Mean [Right Arm] Pulse Oximetry 96 97 94 Oxygen Delivery Method Oxygen Flow Rate 5 5 5 Sepsis Recent Fever Within 48 Hours Sepsis New/Unexplained Change in Mental Status Sepsis Action Taken by Nursing 09/21/19 11:49 Temperature Temperature Source Pulse Rate Pulse Rate [Apical] Pulse Rate from SpO2 Sensor Respiratory Rate Blood Pressure Blood Pressure [Right Arm] Blood Pressure Mean Blood Pressure Mean [Right Arm] Pulse Oximetry 96 Oxygen Delivery Method Nasal Cannula Oxygen Flow Rate 5 Sepsis Recent Fever Within 48 Hours Sepsis New/Unexplained Change in Mental Status Sepsis Action Taken by Nursing VITALS: Vitals are noted on the nurse's note and reviewed by myself. Patient is tachycardic, hypertensive, and tachypneic. GENERAL: This is a 43-year-old obese white male, chronically ill-appearing, incr eased work of breathing, nondiaphoretic, well-developed well-nourished. SKIN: The skin was without rashes, erythema, edema, or bruising. There is no tenting of the skin. Capillary refill less than 2 seconds. HEAD: Normocephalic atraumatic. EARS: External auditory canals clear, tympanic membranes pearly blake without erythema or effusion bilaterally. EYES: Pupils equal round and reactive to light and accommodation. Conjunctivae without injection, sclerae without icterus. Extraocular movements intact. NOSE: Patent, turbinates without inflammation or discharge. No sinus tenderness. MOUTH: Mucous membranes moist. Tonsils are not enlarged. Pharynx without erythema or exudate. Uvula midline. Airway patent. Tongue does not deviate. NECK: Supple without nuchal rigidity. No lymphadenopathy. No thyromegaly. Cervical spine is nontender. No JVD. HEART: Regular rate and rhythm without murmurs gallops or rubs. LUNGS: Clear to auscultation bilaterally without wheezes, rales or rhonchi. + retractions and accessory muscle use. ABDOMEN: Positive bowel sounds x 4. Normal tympanic percussion. Soft, nontender, without masses or organomegaly. No guarding or rebound tenderness. MUSCULOSKELETAL: 2+ pitting edema bilateral LE with erythema L>R. No muscle atrophy. No tenderness to palpation. Strength 5/5 throughout. NEURO: Patient was alert and oriented to person place and time. Normal sensation to light and sharp touch. No focal neurological deficits. Course Course The patient was seen and evaluated as above. An order was placed for continuous cardiac monitoring. The monitor shows a sinus tachycardia at a rate of 113 bpm. IV access obtained, labs drawn. Patient medicated with IV Lasix. As notified by the nurse that the patient is appearing more tachypneic and minimally responding at this time. I reevaluated the patient. He was initially responsive to questions, then stopped responding to questions, but shortly thereafter, did indicate that he is alert and aware of everything going on around him. He is now describing chest pressure which he describes as a squeezing sensation in the left side of his chest. This began 5 minutes ago. I discussed case with my attending physician. Repeat EKG completed. Patient medicated with Nitropaste. Imaging performed and reviewed by myself and radiologist as noted. Labs reviewed by myself. I discussed the findings with the patient at bedside. The patient was reassessed multiple times and is feeling much better. He is upright, leaning over the bed, talking on the phone, and in no acute distress at this time. I discussed the case with the mobility manager for admission. I discussed the case with the [facility] hospitalist who will evaluate the patient for inpatient care. Administered Medications Discontinued Medications Furosemide (Lasix) 40 mg IV NOW STA Stop: 09/21/19 09:37 Last Admin: 09/21/19 10:04 Dose: 40 mg Documented by: [id number] Nitroglycerin (Nitro-Bid 2%) 1 inch EXT NOW STA Stop: 09/21/19 10:17 Last Admin: 09/21/19 10:23 Dose: 1 inch Documented by: [id number] Medical Decision Making Differential Diagnosis Cardiac ischemia, CHF, pulmonary edema, DVT, PE, esophageal varices, aortic dissection, pulmonary embolism, pneumothorax, pneumonia, pericarditis, myoca rditis, esophageal rupture, GERD, cholecystitis, pancreatitis, musculoskeletal, malignancy, as well as other pathologies. Medical Records Attestation: I reviewed the patient's medical records. Home Medications Current Medication List: was personally reviewed by me Laboratory Data Attestation: I reviewed the patient's lab results. No leukocytosis, anemia, thrombocytopenia. Renal, hepatic function, and electrolytes without significant abnormality. Troponin 0 0.023, but this does appear to be chronically elevated. BNP 3828. VBG with a mildly elevated pH of 7.43. Urinalysis negative for evidence of blood or infection. Result diagrams: 09/21/19 09:30 09/21/19 09:30 Lab Results 09/21/19 09/21/19 09/21/19 Range/Units 09:30 09:30 09:30 WBC 10.75 (4.8-10.8) K/uL RBC 5.00 (4.7-6.1) M/uL Hgb 13.0 L (14.0-18.0) g/dL Hct 40.1 L (42-52) % MCV 80.2 (80-100) fL MCH 26.0 (25-34) pg MCHC 32.4 (32-36) g/dL RDW Std Deviation 50.5 H (36.4-46.3) fL RDW Coeff of Zoltan 17.5 H (11.5-14.5) % Plt Count 201 (130-400) K/uL MPV 10.1 (7.4-10.4) fL Immature Gran % (Auto) 0.2 % Neut % (Auto) 77.9 % Lymph % (Auto) 16.0 % Fisher % (Auto) 5.2 % Eos % (Auto) 0.6 % Baso % (Auto) 0.1 % Neut # (Auto) 8.38 H (1.4-6.5) K/uL Lymph # (Auto) 1.72 (1.2-3.4) K/uL Fisher # (Auto) 0.56 (0.11-0.59) K/uL Eos # (Auto) 0.06 (0-0.5) K/uL Baso # (Auto) 0.01 (0-0.2) K/uL Immature Gran # (Auto) 0.02 (0.00-0.02) K/uL PT 11.0 (9.0-12.0) Seconds INR 1.0 (0.9-1.1) APTT 28.2 (21.0-31.0) Seconds PTT Ratio 1.0 VBG pH (7.36-7.41) VBG pCO2 (38-50) mmHg VBG pO2 mmHg VBG HCO3 mmol/L VBG O2 Saturation % VBG Base Excess mEq/L Barometric Pressure mm/Hg Sodium 139 (136-145) mmol/L Potassium 4.1 (3.5-5.1) mmol/L Chloride 110 H (98-107) mmol/L Carbon Dioxide 23 (21-32) mmol/L Anion Gap 6.0 (3-11) BUN 13 (7-18) mg/dl Creatinine 0.95 (0.6-1.4) mg/dl Est Cr Clr Drug Dosing 158.5 ml/min Est GFR ( Amer) 114.0 Est GFR (Non-Af Amer) 98.3 BUN/Creatinine Ratio 13.5 (10-20) Glucose 149 H (70-99) mg/dl Calcium 8.4 L (8.5-10.1) mg/dl Magnesium 1.8 (1.8-2.4) mg/dl Total Bilirubin 1.0 (0.2-1) mg/dl AST 18 (15-37) U/L ALT 23 (12-78) U/L Alkaline Phosphatase 94 (45-117) U/L Troponin I 0.023 (0-0.045) ng/ml NT-Pro-B Natriuret Pep 3828 H (0-450) pg/ml Total Protein 7.2 (6.4-8.2) gm/dl Albumin 3.2 L (3.4-5.0) gm/dl Globulin 4.0 (2.5-4.0) gm/dl Albumin/Globulin Ratio 0.8 L (0.9-2) Urine Color Urine Appearance (Clear) Urine pH (4.5-7.5) Ur Specific [place] (1.000-1.030) Urine Protein (Negative) Urine Glucose (UA) (Negative) Urine Ketones (Negative) Urine Blood (Negative) Urine Nitrite (Negative) Urine Bilirubin (Negative) Urine Urobilinogen (Negative) Ur Leukocyte Esterase (Negative) Urine WBC (Auto) (0-5) /hpf Urine RBC (Auto) (0-4) /hpf U Hyaline Cast (Auto) (0-5) /lpf U Epithel Cells (Auto) (0-5) /lpf Urine Bacteria (Auto) (Negative) 09/21/19 09/21/19 Range/Units 10:23 12:00 WBC (4.8-10.8) K/uL RBC (4.7-6.1) M/uL Hgb (14.0-18.0) g/dL Hct (42-52) % MCV (80-100) fL MCH (25-34) pg MCHC (32-36) g/dL RDW Std Deviation (36.4-46.3) fL RDW Coeff of Zoltan (11.5-14.5) % Plt Count (130-400) K/uL MPV (7.4-10.4) fL Immature Gran % (Auto) % Neut % (Auto) % Lymph % (Auto) % Fisher % (Auto) % Eos % (Auto) % Baso % (Auto) % Neut # (Auto) (1.4-6.5) K/uL Lymph # (Auto) (1.2-3.4) K/uL Fisher # (Auto) (0.11-0.59) K/uL Eos # (Auto) (0-0.5) K/uL Baso # (Auto) (0-0.2) K/uL Immature Gran # (Auto) (0.00-0.02) K/uL PT (9.0-12.0) Seconds INR (0.9-1.1) APTT (21.0-31.0) Seconds PTT Ratio VBG pH 7.43 H (7.36-7.41) VBG pCO2 34 L (38-50) mmHg VBG pO2 51 mmHg VBG HCO3 22 mmol/L VBG O2 Saturation 84.7 % VBG Base Excess -1.4 mEq/L Barometric Pressure 736.1 mm/Hg Sodium (136-145) mmol/L Potassium (3.5-5.1) mmol/L Chloride (98-107) mmol/L Carbon Dioxide (21-32) mmol/L Anion Gap (3-11) BUN (7-18) mg/dl Creatinine (0.6-1.4) mg/dl Est Cr Clr Drug Dosing ml/min Est GFR ( Amer) Est GFR (Non-Af Amer) BUN/Creatinine Ratio (10-20) Glucose (70-99) mg/dl Calcium (8.5-10.1) mg/dl Magnesium (1.8-2.4) mg/dl Total Bilirubin (0.2-1) mg/dl AST (15-37) U/L ALT (12-78) U/L Alkaline Phosphatase (45-117) U/L Troponin I (0-0.045) ng/ml NT-Pro-B Natriuret Pep (0-450) pg/ml Total Protein (6.4-8.2) gm/dl Albumin (3.4-5.0) gm/dl Globulin (2.5-4.0) gm/dl Albumin/Globulin Ratio (0.9-2) Urine Color Yellow Urine Appearance Clear (Clear) Urine pH 5.0 (4.5-7.5) Ur Specific [place] 1.013 (1.000-1.030) Urine Protein Trace H (Negative) Urine Glucose (UA) Negative (Negative) Urine Ketones Negative (Negative) Urine Blood Negative (Negative) Urine Nitrite Negative (Negative) Urine Bilirubin Negative (Negative) Urine Urobilinogen Negative (Negative) Ur Leukocyte Esterase Negative (Negative) Urine WBC (Auto) 0 (0-5) /hpf Urine RBC (Auto) 0-4 (0-4) /hpf U Hyaline Cast (Auto) 1-5 (0-5) /lpf U Epithel Cells (Auto) 5-10 H (0-5) /lpf Urine Bacteria (Auto) Negative (Negative) Imaging Data Radiologist's Impression: US venous doppler LE BI HISTORY: Pain. Edema. Dyspnea, bernice leg pain/swelling COMPARISON STUDY: None. FINDINGS: There is normal compressibility, flow, and augmentation within the bilateral lower extremity deep venous systems. IMPRESSION: No DVT within the right or left lower extremity. Limited exam due to patient body habitus ACT 112: Negative or not required by law. The above report was generated using voice recognition software. It may contain grammatical, syntax or spelling errors. Electronically signed by: Cleveland Concepcion M.D. 09/21/2019 12:03 PM XR chest 1V portable CLINICAL HISTORY: Dyspnea dyspnea COMPARISON STUDY: 09/12/2019 FINDINGS: Moderate cardiomegaly. Permanent cardiac pacemaker. Increased pulmonary vascularity. IMPRESSION: Congestive failure versus pulmonary edema. ACT 112: Negative or not required by law. The above report was generated using voice recognition software. It may contain grammatical, syntax or spelling errors. Electronically signed by: Cleveland Concepcion M.D. 09/21/2019 10:35 AM ECG Data Attestation: I personally reviewed and interpreted this ECG as follows: (Initial EKG @0916) Indication: + tachycardia Rate (beats per minute): 112 Rhythm: + sinus tachycardia ECG [place]: + Left axis deviation ECG ST segments: no ST depression, no ST elevation and no T-wave inversions Comparison ECG Date: from (09/13/2019) Change: the following changes noted (sinus tachycardia has replaced sinus rhythm, PVC's no longer present, QT has shortened) Additional Comments: Repeat EKG at 11/26 completed d/t complaints of Chest pain showed sinus tachycardia with ventricular rate of [address] elevation or depression. No T-wave inversion. Left axis deviation. Left atrial enlargement. No significant change when compared to EKG completed 1 hour prior. Blood Pressure Blood Pressure Findings: Elevated blood pressure Blood Pressure Disposition: elevated BP felt to be situational MDM Narrative This 43-year-old male patient presents the emergency department today via ambulance for evaluation of shortness of breath, hemoptysis, lightheadedness, "blackouts", and developed chest pain while here in the emergency department. The patient was hypertensive and tachycardic on initial evaluation. He is also complaining of leg symptoms. Work-up here in the ED consistent with previous work-ups completed. Laboratory evaluation unrevealing. The patient does appear to be fluid overloaded with a chest x-ray consistent with congestive failure versus pulmonary edema. The patient was medicated with IV Lasix. After the development of the chest pain, he was medicated with Nitropaste. The patient symptoms almost completely resolved and he did not experience any further episodes of spitting up blood or the complaints of altered level of consciousness. The patient had a few questionable episodes of decreased responsiveness, but was able to answer questions throughout this. The patient will be admitted to the [facility] hospitalist service for ongoing management of his symptoms. Please see hospitalist dictation. The chart was completed utilizing [employer] Speech voice recognition software. Grammatical errors, random word insertions, pronoun errors, and incomplete sentences are an occasional consequence of this system due to software limitations, ambient noise, and hardware issues. Any formal questions or concerns about the content, text, or information contained within the body of this dictation should be directly addressed to the provider for clarification. Impression & Plan Acute CHF (congestive heart failure), Hemoptysis, Chronic respiratory failure, Bilateral leg pain Discharge Plan Visit Data Chief Complaint: Shortness of Breath/Dyspnea ED Provider: Kan Pollock ED Midlevel Provider: Milena Solitario Discharge Problem: Acute CHF (congestive heart failure), Hemoptysis, Chronic respiratory failure, Bilateral leg pain Patient Disposition: Admitted As Inpatient Forms Stand Alone Forms: My [facility] Prescriptions Prescriptions: No Action (DME) lancets [OneTouch Delica Plus Lancet] 30 gauge misc See Dose Instructions .ROUTE .MEDSUPPLY Qty: 400 RF: 3 (DME) OneTouch Verio test strips strip See Dose Instructions .ROUTE .MEDSUPPLY Qty: 400 RF: 3 Trulicity 1.5 mg/0.5 mL pen injector 1.5 mg SQ WE Qty: 2 RF: 5 potassium chloride [K-Tab] 20 mEq tablet extended release 20 meq PO BID RF: 0 albuterol sulfate [Ventolin HFA] 90 mcg/actuation HFA aerosol inhaler 1 puffs INH QID Qty: 18 RF: 2 (DME) Oxygen Home Liters Per Minute See Rx Instructions .ROUTE .MEDSUPPLY Qty: 1 RF: 5 esomeprazole magnesium [Nexium] 20 mg capsule,delayed release(DR/EC) 20 mg PO BID RF: 0 aspirin [Aspirin Low Dose] 81 mg tablet,delayed release (DR/EC) 81 mg PO QAM RF: 0 nitroglycerin [Nitrostat] 0.4 mg tablet, sublingual 0.4 mg sublingual UD PRN (Reason: Chest Pain) RF: 0 doxycycline monohydrate 100 mg capsule 100 mg PO BID Qty: 20 RF: 0 spironolactone 25 mg tablet 50 mg PO BID RF: 0 budesonide 0.25 mg/2 mL suspension for nebulization 0.25 mg inhalation Q12 RF: 0 Breo Ellipta 200-25 mcg/dose blister with device 1 inh INHALATION QAM RF: 0 cholecalciferol (vitamin D3) [Vitamin D3] 1,000 unit capsule 2,000 units PO BID RF: 0 Entresto 97-103 mg tablet 1 tab PO BID RF: 0 metolazone 5 mg tablet 5 mg PO MOTH RF: 0 carisoprodol [Soma] 350 mg tablet 350 mg PO HS PRN (Reason: muscle pain) RF: 0 metoprolol succinate [Toprol XL] 200 mg tablet extended release 24 hr 200 mg PO HS RF: 0 torsemide 20 mg tablet 40 mg PO BID Qty: 120 RF: 2 Referrals Referrals: PCP,NO [Primary Care Provider] -
[2019-09-21 09:45] LABS: Basophils # (auto) 0.01 K/uL (0-0.2); Basophils % (auto) 0.1 %; Eosinophils # (auto) 0.06 K/uL (0-0.5); Eosinophils % (auto) 0.6 %; Hematocrit (blood only) 40.1 % (42-52); Immature Granulocytes # (auto) 0.02 K/uL (0.00-0.02); Immature Granulocytes % (auto) 0.2 %; Lymphocytes # (auto) 1.72 K/uL (1.2-3.4); Mean Corpuscular Hgb Conc 32.4 g/dL (32-36); Mean Corpuscular Volume 80.2 fL (80-100); Mean Platelet Volume 10.1 fL (7.4-10.4); Monocytes # (auto) 0.56 K/uL (0.11-0.59); Monocytes % (auto) 5.2 %; Neutrophils # (auto) 8.38 K/uL (1.4-6.5); Neutrophils % (auto) 77.9 %; Platelet Count 201 K/uL (130-400); RDW Coefficient of Variation 17.5 % (11.5-14.5); RDW Standard Deviation 50.5 fL (36.4-46.3); White Blood Count 10.75 K/uL (4.8-10.8)
[2019-09-21 09:56] LABS: Partial Thromboplastin Time 28.2 Seconds (21.0-31.0)
[2019-09-21 10:06] LABS: Albumin Level 3.2 gm/dl (3.4-5.0); BUN Creatinine Ratio 13.5 (10-20); Calcium 8.4 mg/dl (8.5-10.1); Creatinine Clr Calc Pharmacy 158.5 ml/min; Est GFR (Non-African American) 98.3; Magnesium 1.8 mg/dl (1.8-2.4); Potassium 4.1 mmol/L (3.5-5.1)
[2019-09-21 10:11] LABS: Albumin Globulin Ratio 0.8 (0.9-2); Total Protein 7.2 gm/dl (6.4-8.2); Troponin I 0.023 ng/ml (0-0.045)
[2019-09-21] MEDS ORDERED: NITROGLYCERIN 2% OINTMENT 30GM TUBE EXT STA (10:16)
[2019-09-21 10:35] LABS: Base Excess VBG -1.4 mEq/L; Oxygen Saturation VBG 84.7 %; pH VBG 7.43 (7.36-7.41)
--- NOTE | 2019-09-21 10:36 | XRay Report ---
XR chest 1V portable CLINICAL HISTORY: Dyspnea dyspnea COMPARISON STUDY: 09/12/2019 FINDINGS: Moderate cardiomegaly. Permanent cardiac pacemaker. Increased pulmonary vascularity. IMPRESSION: Congestive failure versus pulmonary edema. ACT 112: Negative or not required by law. The above report was generated using voice recognition software. It may contain grammatical, syntax or spelling errors. Electronically signed by: Cleveland Concepcion M.D. 09/21/2019 10:35 AM
--- NOTE | 2019-09-21 11:06 | Electrocardiogram Report ---
Test Reason : Blood Pressure : / mmHG Vent. Rate : 112 BPM Atrial Rate : 112 BPM P-R Int : 152 ms QRS Dur : 100 ms QT Int : 352 ms P-R-T Axes : 042 -46 089 degrees QTc Int : 480 ms Sinus tachycardia Possible Left atrial enlargement Left axis deviation Abnormal ECG When compared with ECG of 13-SEP-2019 07:37, Premature ventricular complexes are no longer Present Vent. rate has increased BY 38 BPM Nonspecific T wave abnormality no longer evident in Inferior leads T wave inversion less evident in Lateral leads Confirmed by Bertrand Polanco ([id number]) on 09/21/2019 11:06:13 AM Referred By: REFERRED SELF Confirmed By:Severiano Polanco
--- NOTE | 2019-09-21 11:06 | Electrocardiogram Report ---
Test Reason : Blood Pressure : / mmHG Vent. Rate : 109 BPM Atrial Rate : 109 BPM P-R Int : 150 ms QRS Dur : 104 ms QT Int : 364 ms P-R-T Axes : 028 -52 097 degrees QTc Int : 490 ms Poor data quality, interpretation may be adversely affected Sinus tachycardia Possible Left atrial enlargement Left anterior fascicular block Abnormal QRS-T angle, consider primary T wave abnormality Abnormal ECG When compared with ECG of 21-SEP-2019 09:16, (unconfirmed) No significant change was found Confirmed by Bertrand Polanco ([id number]) on 09/21/2019 11:06:27 AM Referred By: REFERRED SELF Confirmed By:Severiano Polanco
--- NOTE | 2019-09-21 12:04 | Ultrasound Report ---
US venous doppler LE BI HISTORY: Pain. Edema. Dyspnea, bernice leg pain/swelling COMPARISON STUDY: None. FINDINGS: There is normal compressibility, flow, and augmentation within the bilateral lower extremit y deep venous systems. IMPRESSION: No DVT within the right or left lower extremity. Limited exam due to patient body habitus ACT 112: Negative or not required by law. The above report was generated using voice recognition software. It may contain grammatical, syntax or spelling errors. Electronically signed by: Cleveland Concepcion M.D. 09/21/2019 12:03 PM
[2019-09-21 12:20] LABS: Appearance Urine Clear (Clear); Bacteria Urine Automated Negative (Negative); Bilirubin Urine Negative (Negative); Blood Urine Negative (Negative); Color Urine Yellow; Glucose Urine UA Negative (Negative); Ketones Urine Negative (Negative); Leukocyte Esterase Urine Negative (Negative); Nitrite Urine Negative (Negative); Protein Urine Trace (Negative); RBC Urine Automated 0-4 /hpf (0-4); Specific Gravity Urine 1.013 (1.000-1.030); Urobilinogen Urine Negative (Negative); WBC Urine Automated 0 /hpf (0-5)
--- NOTE | 2019-09-21 12:49 | History & Physical Report ---
Date of Service September 21, 2019 Assessment & Plan (1) Syncope: Reported by patient, multiple episodes of losing consciousness. Suspect due to acute respiratory failure with hypoxia and not able to tolerate the BiPAP last night - although patient not reliable historian. Monitor on telemetry for any arrhythmias and interrogate AICD for the same + any firing. If ICD interrogation normal no reason to consult cardiology at present time. (2) Acute and chronic respiratory failure with hypoxia: Aim O2 sats > 92%, VBG does not suggest any acute CO2 retention Needs BiPAP 31/10 when napping and at night Secondary to CHF as below (3) Acute on chronic HFrEF (heart failure with reduced ejection fraction): Nitro patch 1inch and lasix 40mg IV given in ER Give additional Lasix 40mg IV now, can remove nitro patch once he gets to the [facility] as long as BP < 180. Continue lasix 40mg BID17 (I do want the additional dose at 5pm today given) Metolazone 5mg PO increase frequency to daily Spironolactone 50mg PO BID Potassium replacement as necessary Daily weights, strict I&Os Low Na, heart healthy, fluid restrict 1200ml (4) NICM (nonischemic cardiomyopathy): Continue Entresto BID and metoprolol succinate HS Despite chest pain he has had this on all his prior acute CHF episode with multiple negative troponins, will repeat in AM but otherwise no need to trend serially. (5) Hemoptysis: Extensive prior workup with multiple CTs and bronchoscopy Secondary to pulmonary edema as above. Noted on multiple prior episodes. Explained to patient on multiple prior occasions including today, although he contains to say no-one knows why this happens. Avoid VTE prophylaxis while actively bleeding. (6) Hypertensive urgency: Management per acute CHF as above, diuresis should improve his BP (7) AICD (automatic cardioverter/defibrillator) present: Interrogation ordered as above (8) Diabetes mellitus type 2 with complications: HbA1C 7.9 in August. Relatively constant, no need to repeat. Will prescribe his usual inpatient regimen with: Novolin NPH 8 units BID Novolog sliding scale aim BSG 110-140, Correction 25, Carb ratio 9 Notably significantly decreased from outpatient regimen showing his considerably worse diet at home. (9) Obstructive sleep apnea: BiPAP as above when sleeping or napping (10) COPD (chronic obstructive pulmonary disease): No wheezing to suggest exacerbation at the present time. Continue his usual maintenance inhalers Limit duonebs to wheezing as shortness of breath due to pulmonary edema (11) Normocytic anemia: Monitor with CBC in AM, consider iron studies as borderline microcytic (12) DVT prophylaxis: Chemical prophylaxis deferred in setting of hemoptysis, can be started on lovenox once this resolves. SCDs Admission and Anticipated Discharge Date Admission Date: 09/21/2019 History of Present Illness Chief Complaint: Shortness of breath, hemoptysis Primary Care Provider: NO PCP Alok Huff is a 43 year old male well known to this service with non- ischemic cardiomyopathy and multiple admissions for volume overload with chest pain, shortness of breath, hemoptysis likely related to poor adherence to diet, fluid restriction, medications and understanding of his medical conditions. On this occasion he reports all his usual symptoms with shortness of breath, chest pain, hemoptysis getting gradually worse over the last 2-3 days. He was last discharged just 8 days ago. He does not weight himself. He reports compliance with his BiPAP although his shortness of breath and nausea became so bad last night he was unable to wear it. On this occasion he also mentions syncopal episodes which is a new symptom he has not previously mentioned to myself. This occurred three times last night as per the patient. He has also been taking doxycycline for e left leg cellulitis diagnosed originally back on September 08 ER visit. In the ER there was also some concern about leg swelling L > R therefore patient had venous doppler which was negative for DVT. Allergies Allergy/AdvReac Type Severity Reaction Status Date / Time ceftriaxone Allergy Severe SHORTNESS Verified 09/21/19 10:14 OF BREATH lidocaine Allergy Severe SHORTNESS Verified 09/21/19 10:14 OF BREATH, diaphoretic, hives procaine Allergy Severe SHORTNESS Verified 09/21/19 10:14 OF BREATH, diaphoretic, hives amoxicillin Allergy Intermediate HIVES/FACIAL Verified 09/21/19 10:14 SWELLING clavulanic acid Allergy Intermediate HIVES/FACIAL Verified 09/21/19 10:14 SWELLING lisinopril Allergy Intermediate HIVES Verified 09/21/19 10:14 acetaminophen AdvReac Mild NAUSEA Verified 09/21/19 10:14 albuterol AdvReac Mild proair Verified 09/21/19 10:14 "trouble taking breaths" Home Medications Home Medications Medication Instructions Recorded Confirmed Type esomeprazole magnesium 20 mg 20 mg PO BID cap 09/05/18 09/21/19 History capsule,delayed release aspirin 81 mg tablet,delayed 81 mg PO QAM 09/17/18 09/21/19 History release cholecalciferol (vitamin D3) 25 2,000 units PO BID cap 09/17/18 09/21/19 History mcg (1,000 unit) capsule OneTouch Delica Plus Lancet 30 #400 ea NS 12/23/18 09/11/19 Rx gauge OneTouch Verio test strips #400 ea NS 12/23/18 09/11/19 Rx potassium chloride 20 mEq 20 meq PO BID 02/25/19 09/21/19 History tablet,extended release albuterol sulfate 90 mcg/actuation 1 puffs INH QID #18 gm 03/26/19 09/21/19 Rx aerosol inhaler sacubitril 97 mg-valsartan 103 mg 1 tab PO BID tab 04/10/19 09/21/19 History tablet nitroglycerin [Nitrostat] 0.4 mg SUBLINGUAL UD PRN 04/24/19 09/21/19 History metolazone 5 mg PO MOTH 04/29/19 09/21/19 History Oxygen Home #1 ea 05/19/19 09/11/19 Rx dulaglutide 1.5 mg/0.5 mL 1.5 mg SQ WE #2 ml 06/25/19 09/21/19 Rx subcutaneous pen injector carisoprodol [Soma] 350 mg PO HS PRN 07/27/19 09/21/19 History metoprolol succinate [Toprol XL] 200 mg PO HS 07/27/19 09/21/19 History torsemide 40 mg PO BID #120 tab 08/30/19 09/21/19 Rx doxycycline monohydrate 100 mg PO BID #20 cap 09/09/19 09/21/19 Rx spironolactone 50 mg PO BID 09/11/19 09/21/19 History budesonide 0.25 mg INHALATION Q12 09/21/19 09/21/19 History fluticasone furoate-vilanterol 1 inh INHALATION QAM 09/21/19 09/21/19 History [Noam Wiseman] Past Med/Surg History Medical History Chronic respiratory failure 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 Underwent procedure without any complications monitored over night and discharged home. Obstructive sleep apnea SOB (shortness of breath) (Inactive) Umbilical hernia (Inactive) Vitamin D insufficiency Previously deficient, taking Vit D supplementation Surgical History (Updated 09/21/19 @ 08:21 by Poornima Rocha MD) History of carpal tunnel surgery History of cholecystectomy S/P tonsillectomy Social History Smoking Status: Never smoker Age Started Using Tobacco: 14; Age Quit Using Tobacco: 18; Cigarettes Per Day: 40-50; Second Hand Exposure: No; Hx Alcohol Use: No Hx Substance Use: No Preferred Language: Faroese Communication Ability: Effective Visual Impairment: No Limitations Hearing Ability: Normal 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 Beliefs That Will Affect Care: None marital status: Current Living Situation: Spouse current occupational status: unemployed How many Children do You have: 0 Other Information That Helps Us Care for You: No Feels Safe at Home: Yes Safety Concerns: Feels Safe At This Time Childhood Exposure to Second-Hand Smoke: Yes Dental Care, Regularly: Yes Physical Activity Frequency: Does not Exercise Review of Systems Review of Systems: All systems reviewed & are unremarkable except as noted in HPI & below Physical Exam Constitutional: + acute distress (respiratory distress) and + morbidly obese; + not well nourished Eyes: + anicteric sclerae; normal pupil size Neck: trachea midline, + short neck and + thick neck Respiratory: + respiratory distress, + labored breathing, + retractions, + uses accessory muscles and able to speak in complete sentences; no cough, normal respiratory pattern and expiratory phase not prolonged Auscultation: + diminished lung sounds (throughout, especially at bases b/l); no crackles, no rales, no rhonchi and no wheezes Cardiovascular: Rate/Rhythm: + tachycardic Heart Sounds: no murmur Vessels: no JVD (unable to assess with neck size) Extremities: normal capillary refill and + edema (1+ equal to thighs); no calf tenderness Gastrointestinal (Abdomen): Inspection/Auscultation: + abdomen abnormal to inspection (obese) Musculoskeletal: no cyanosis or clubbing, extremities motor strength 5/5 Skin: No cellulitic areas on abdomen or legs Neurologic: moves all extremities and awake; not confused Motor/Sensory: no tremor, no pronator drift and no sensory deficit Psychiatric: Orientation: alert and oriented x 3 Affect: euthymic affect Genitourinary: no CVA tenderness Lymphatic: no cervical or axillary lymphadenopathy Results & Data Results & Data ([facility]) Vital Signs (Past 12 Hours) Vital Signs Temp Pulse Pulse Resp BP BP Pulse Ox 09/21/19 11:49 96 09/21/19 11:46 105 H 18 94 09/21/19 11:00 108 H 30 H 185/137 H 97 09/21/19 10:54 110 H 35 H 180/146 H 96 09/21/19 10:31 110 H 114 H 35 H 189/128 H 189/128 H 95 09/21/19 10:30 114 H 33 H 94 09/21/19 10:24 106 H 33 H 180/144 H 95 09/21/19 10:04 114 H 113 H 27 H 188/140 H 188/140 H 97 09/21/19 10:00 107 H 32 H 97 09/21/19 09:30 104 H 24 09/21/19 09:29 105 H 32 H 09/21/19 09:17 107 H 29 H 169/126 H 09/21/19 09:13 36.4 C L 111 H 36 H 169/126 H 88 L Diagnostic Findings XR chest 1V portable IMPRESSION: Congestive failure versus pulmonary edema. ECG Indication: chest pain and SOB/dyspnea Rate (beats per minute): 112 Rhythm: sinus tachycardia Findings: + LAFB Comparison ECG Date: from (09/13/2019) Change: no significant change Code Status & VTE Plan Code Status Full VTE Prophylaxis Plan VTE Prophylaxis will be ordered: Yes Reason for no VTE drug order: Contraindicated PG Care Time/CCT Total # of Minutes Spent Total Time Spent with Patient: Total time spent is greater than 50% in coordination of care (as documented) at patient's floor/unit and/or counseling patient: Coding Level of Care Code 17701 OBS Care - Level 3 Diagnoses Syncope R55 Syncope type: unspecified Acute and chronic respiratory failure with hypoxia J96.21 Acute on chronic HFrEF (heart failure with reduced ejection fraction) I50.23 NICM (nonischemic cardiomyopathy) I42.8 Hemoptysis R04.2 Hypertensive urgency I16.0 AICD (automatic cardioverter/defibrillator) present Z95.810 Diabetes mellitus type 2 with complications E11.8 Obstructive sleep apnea G47.33 COPD (chronic obstructive pulmonary disease) J44.9 COPD type: unspecified COPD Normocytic anemia D64.9 DVT prophylaxis Z29.9 (1) Syncope Syncope type: unspecified Qualified Code(s): R55 - Syncope and collapse (2) COPD (chronic obstructive pulmonary disease) COPD type: unspecified COPD Qualified Code(s): J44.9 - Chronic obstructive pulmonary disease, unspecified
[2019-09-21] MEDS ORDERED: GLUCOSE 40% GEL 15 GM TUBE PO PRN (14:36)
[2019-09-21] MEDS ORDERED: ONDANSETRON INJ 2 MG/ML 2 ML VIAL IV PRN (14:36)
[2019-09-21] MEDS ORDERED: DEXTROSE 50% 50 ML SYRINGE IV PRN (14:36)
[2019-09-21] MEDS ORDERED: CARISOPRODOL 350 MG TABLET PO PRN (14:36)
[2019-09-21] MEDS ORDERED: CARBOHYDRATES FOR HYPOGLYCEMIA PO PRN (14:36)
[2019-09-21] MEDS ORDERED: ACETAMINOPHEN 325 MG TAB PO PRN (14:36)
[2019-09-21] MEDS ORDERED: GLUCOSE 10 TABS/TUBE PO PRN (14:36)
[2019-09-21] MEDS ORDERED: GLUCAGON FOR INJ 1 MG VIAL SQ PRN (14:36)
[2019-09-21] MEDS ORDERED: FUROSEMIDE 40 MG/4 ML VIAL IV SCH (17:00)
[2019-09-21] MEDS: INSULIN ASPART 100 UNITS/ML 3 ML PEN SC SCH ×2 (17:01→20:15)
[2019-09-21] MEDS: INSULIN HUMAN NPH SC SCH (17:01)
[2019-09-21] MEDS: SPIRONOLACTONE 25 MG TAB PO SCH (17:02)
[2019-09-21] MEDS ORDERED: metOLazone 5 MG TABLET PO ONE ×2 (19:30→19:53)
[2019-09-21] MEDS: FUROSEMIDE 40 MG in SYRINGE 0 ML IV SCH (20:12)
[2019-09-21] MEDS: SACUBITRIL-VALSARTAN 97-103 MG TAB PO SCH (20:13)
[2019-09-21] MEDS: CHOLECALCIFEROL 1,000 UNITS 25 MCG TAB PO SCH (20:13)
[2019-09-21] MEDS: METOPROLOL SUCC 50MG EXT REL TAB PO SCH (20:14)
[2019-09-21] MEDS: PANTOprazole 40 MG TAB PO SCH (20:14)
[2019-09-21] MEDS: POTASSIUM CHLORIDE 20 MEQ TABCR PO SCH (20:14)
[2019-09-21] MEDS ORDERED: ALBUT/IPRATROP 3MG/0.5MG NEB 3 ML VIAL NEB PRN (20:16)
[2019-09-22 07:58] LABS: Basophils # (auto) 0.01 K/uL (0-0.2); Basophils % (auto) 0.1 %; Eosinophils % (auto) 1.1 %; Hemoglobin 14.6 g/dL (14.0-18.0); Immature Granulocytes # (auto) 0.02 K/uL (0.00-0.02); Immature Granulocytes % (auto) 0.2 %; Lymphocytes # (auto) 1.98 K/uL (1.2-3.4); Lymphocytes % (auto) 21.5 %; Mean Corpuscular Hemoglobin 27.1 pg (25-34); Mean Corpuscular Volume 79.8 fL (80-100); Mean Platelet Volume 10.3 fL (7.4-10.4); Monocytes # (auto) 0.77 K/uL (0.11-0.59); Monocytes % (auto) 8.4 %; Neutrophils # (auto) 6.31 K/uL (1.4-6.5); Neutrophils % (auto) 68.7 %; Platelet Count 200 K/uL (130-400); RDW Coefficient of Variation 17.6 % (11.5-14.5); RDW Standard Deviation 49.6 fL (36.4-46.3); Red Blood Count 5.39 M/uL (4.7-6.1); White Blood Count 9.19 K/uL (4.8-10.8)
[2019-09-22] MEDS: CHOLECALCIFEROL 1,000 UNITS 25 MCG TAB PO SCH ×2 (08:03→20:50)
[2019-09-22] MEDS: POTASSIUM CHLORIDE 20 MEQ TABCR PO SCH ×2 (08:03→20:52)
[2019-09-22] MEDS: PANTOprazole 40 MG TAB PO SCH ×2 (08:03→20:51)
[2019-09-22] MEDS: SPIRONOLACTONE 25 MG TAB PO SCH ×2 (08:03→16:55)
[2019-09-22] MEDS: FLUTICASONE/VILANTEROL 200/25MCG 14 PUFFS/INHALER INH SCH (08:03)
[2019-09-22] MEDS: FUROSEMIDE 40 MG in SYRINGE 0 ML IV SCH ×2 (08:03→17:12)
[2019-09-22] MEDS: SACUBITRIL-VALSARTAN 97-103 MG TAB PO SCH ×2 (08:04→20:50)
[2019-09-22] MEDS: INSULIN HUMAN NPH SC SCH ×2 (08:04→16:54)
[2019-09-22] MEDS: ASPIRIN 81 MG ECTAB PO SCH (08:04)
[2019-09-22] MEDS: INSULIN ASPART 100 UNITS/ML 3 ML PEN SC SCH ×4 (08:04→20:51)
[2019-09-22] MEDS: metOLazone 5 MG TABLET PO SCH (08:05)
[2019-09-22 08:35] LABS: BUN Creatinine Ratio 14.3 (10-20); Blood Urea Nitrogen 14 mg/dl (7-18); Calcium 9.6 mg/dl (8.5-10.1); Carbon Dioxide 26 mmol/L (21-32); Chloride 103 mmol/L (98-107); Creatinine Clr Calc Pharmacy 142.6 ml/min; Est GFR (African American) 109.8; Est GFR (Non-African American) 94.7; Glucose 133 mg/dl (70-99); Potassium 3.7 mmol/L (3.5-5.1); Sodium 135 mmol/L (136-145)
[2019-09-22 08:40] LABS: NT Pro B Type Natriuretic Pept 2161 pg/ml (0-450); Troponin I < 0.015 ng/ml (0-0.045)
--- NOTE | 2019-09-22 20:12 | Hospitalist Progress Note ---
Date of Service September 22, 2019 Assessment & Plan (1) Syncope: Reported by patient, multiple episodes of losing consciousness. Suspect due to acute respiratory failure with hypoxia and not able to tolerate the BiPAP last night - although patient not reliable historian. Monitor on telemetry for any arrhythmias and interrogate AICD for the same + any firing. If ICD interrogation normal no reason to consult cardiology at present time. (2) Acute and chronic respiratory failure with hypoxia: Aim O2 sats > 92%, VBG does not suggest any acute CO2 retention Needs BiPAP 31/10 when napping and at night Secondary to CHF as below (3) Acute on chronic HFrEF (heart failure with reduced ejection fraction): Nitro patch 1inch and lasix 40mg IV given in ER Give additional Lasix 40mg IV now, can remove nitro patch once he gets to the [facility] as long as BP < 180. Continue lasix 40mg BID17 (I do want the additional dose at 5pm today given) Metolazone 5mg PO increase frequency to daily Spironolactone 50mg PO BID Potassium replacement as necessary Daily weights, strict I&Os Low Na, heart healthy, fluid restrict 1200ml (4) NICM (nonischemic cardiomyopathy): Continue Entresto BID and metoprolol succinate HS Despite chest pain he has had this on all his prior acute CHF episode with multiple negative troponins, will repeat in AM but otherwise no need to trend serially. (5) Hemoptysis: Extensive prior workup with multiple CTs and bronchoscopy Secondary to pulmonary edema as above. Noted on multiple prior episodes. Explained to patient on multiple prior occasions including today, although he contains to say no-one knows why this happens. Avoid VTE prophylaxis while actively bleeding. (6) Hypertensive urgency: Management per acute CHF as above, diuresis should improve his BP (7) AICD (automatic cardioverter/defibrillator) present: Interrogation ordered as above (8) Diabetes mellitus type 2 with complications: HbA1C 7.9 in August. Relatively constant, no need to repeat. Will prescribe his usual inpatient regimen with: Novolin NPH 8 units BID Novolog sliding scale aim BSG 110-140, Correction 25, Carb ratio 9 Notably significantly decreased from outpatient regimen showing his considerably worse diet at home. (9) Obstructive sleep apnea: BiPAP as above when sleeping or napping (10) COPD (chronic obstructive pulmonary disease): No wheezing to suggest exacerbation at the present time. Continue his usual maintenance inhalers Limit duonebs to wheezing as shortness of breath due to pulmonary edema (11) Normocytic anemia: Monitor with CBC in AM, consider iron studies as borderline microcytic (12) DVT prophylaxis: Chemical prophylaxis deferred in setting of hemoptysis, can be started on lovenox once this resolves. SCDs Admission and Anticipated Discharge Date Admission Date: September 21, 2019 Subjective Pt still with SOB when lying flat. Also with ambulation. Feels improved at rest and sitting now however. Ongoing hemoptysis, but maybe less today. Tolerating PO without issue. Pt denies fever, chest pain, abd pain, n/v/c/d, LE pain. LE swelling is improved. Review of Systems Review of Systems: Pertinent positives and negatives reviewed in HPI--all others negative Physical Exam Constitutional: WD/WN, vitals as above Eyes: normal visual obrien by confrontation and + anicteric sclerae Neck: normal visual inspection and trachea midline Respiratory: normal respiratory effort; no respiratory distress Auscultation: + crackles; no wheezes Cardiovascular: Rate/Rhythm: regular rate and regular rhythm Gastrointestinal (Abdomen): Inspection/Auscultation: abdomen not distended Percussion/Palpation: abdomen soft; abdomen nontender Musculoskeletal: Head/Neck/Chest: normocephalic and head atraumatic 1+ pitting edema, peripheral pulses intact Skin: no rashes, warm and dry Neurologic: awake; not confused Speech / Cognition: normal speech Psychiatric: A+Ox3, euthymic affect Results & Data Results & Data ([facility]) Vital Signs (Past 12 Hours) Vital Signs Temp Pulse Pulse Resp BP Pulse Ox 09/22/19 19:04 36.4 C L 71 18 120/90 95 09/22/19 16:00 84 09/22/19 14:53 36.4 C L 86 18 115/75 96 09/22/19 11:06 36.6 C 66 18 150/98 H 95 PG Care Time/CCT Total # of Minutes Spent Total Time Spent with Patient: Total time spent is greater than 50% in coordination of care (as documented) at patient's floor/unit and/or counseling patient: Coding Level of Care Code 49892 Subseq Hosp Care Lvl 3 Diagnoses Syncope R55 Syncope type: unspecified Acute and chronic respiratory failure with hypoxia J96.21 Acute on chronic HFrEF (heart failure with reduced ejection fraction) I50.23 NICM (nonischemic cardiomyopathy) I42.8 Hemoptysis R04.2 Hypertensive urgency I16.0 AICD (automatic cardioverter/defibrillator) present Z95.810 Diabetes mellitus type 2 with complications E11.8 Obstructive sleep apnea G47.33 COPD (chronic obstructive pulmonary disease) J44.9 COPD type: unspecified COPD Normocytic anemia D64.9 DVT prophylaxis Z29.9 (1) Syncope Syncope type: unspecified Qualified Code(s): R55 - Syncope and collapse (2) COPD (chronic obstructive pulmonary disease) COPD type: unspecified COPD Qualified Code(s): J44.9 - Chronic obstructive pulmonary disease, unspecified
[2019-09-22] MEDS: METOPROLOL SUCC 50MG EXT REL TAB PO SCH (20:50)
[2019-09-23] MEDS: CHOLECALCIFEROL 1,000 UNITS 25 MCG TAB PO SCH (08:14)
[2019-09-23] MEDS: POTASSIUM CHLORIDE 20 MEQ TABCR PO SCH (08:15)
[2019-09-23] MEDS: metOLazone 5 MG TABLET PO SCH (08:15)
[2019-09-23] MEDS: FUROSEMIDE 40 MG in SYRINGE 0 ML IV SCH (08:15)
[2019-09-23] MEDS: PANTOprazole 40 MG TAB PO SCH (08:15)
[2019-09-23] MEDS: FLUTICASONE/VILANTEROL 200/25MCG 14 PUFFS/INHALER INH SCH (08:15)
[2019-09-23] MEDS: SACUBITRIL-VALSARTAN 97-103 MG TAB PO SCH (08:15)
[2019-09-23] MEDS: SPIRONOLACTONE 25 MG TAB PO SCH ×2 (08:15→17:26)
[2019-09-23] MEDS: ASPIRIN 81 MG ECTAB PO SCH (08:15)
[2019-09-23] MEDS: INSULIN ASPART 100 UNITS/ML 3 ML PEN SC SCH ×3 (08:16→17:26)
[2019-09-23] MEDS: INSULIN HUMAN NPH SC SCH ×2 (08:16→17:27)
--- NOTE | 2019-09-23 10:34 | Neurology Consultation ---
Date of Consultation September 23, 2019 Assessment & Plan (1) Tussive syncope: Recurrent tussive syncope. This patient was evaluated for this issue last month. No evidence of epilepsy or seizure disorder. Would recommend a trial of a cough suppressant such as dextromethorphan or possibly codeine. Gabapentin may also be utilized for cough syncope as well although clinical evidence for use of anticonvulsants in the setting is limited. If dextromethorphan and codeine are not considered appropriate options for this patient, would recommend starting with a low-dose of gabapentin such as 200 mg 3 times per day with gradual up titration to potentially 600 mg 3 times per day. Please contact me if I may be of further assistance. History of Present Illness Reason for Consultation: Recurrent admission for syncope Requesting Physician: Shemar Sky Attending Physician: Shemar Sky History of Present Illness The patient is a 43-year-old male with a history of recurrent vasovagal syncope. I evaluated this patient for this issue 1 month ago during a hospitalization, on August 29, 2019. Please refer to my consultation from August 28 for further details. In summary, he has been exhibiting recurrent seizure-like episodes in the context of acute on chronic respiratory failure confounded by morbid obesity and obstructive sleep apnea. His episodes are typically triggered by coughing spells and are characterized by feeling of lightheadedness and sometimes mao phoresis per his report. His eyes have been observed to roll back during these episodes with associated irregular twitching of the limbs. No tonic-clonic movements. Previous evaluation including an EEG, CT of the head, and CT angiography of the head and neck have been unremarkable. The patient indicates that he continues to experience these episodes, typically triggered by coughing and hemoptysis. He was readmitted to the [facility] on September 20 for shortness of breath and hemoptysis in the context of recurrent lightheadedness/dizziness as above, with several episodes occurring the evening prior to his admission. Allergies Allergy/AdvReac Type Severity Reaction Status Date / Time ceftriaxone Allergy Severe SHORTNESS Verified 09/21/19 10:14 OF BREATH lidocaine Allergy Severe SHORTNESS Verified 09/21/19 10:14 OF BREATH, diaphoretic, hives procaine Allergy Severe SHORTNESS Verified 09/21/19 10:14 OF BREATH, diaphoretic, hives amoxicillin Allergy Intermediate HIVES/FACIAL Verified 09/21/19 10:14 SWELLING clavulanic acid Allergy Intermediate HIVES/FACIAL Verified 09/21/19 10:14 SWELLING lisinopril Allergy Intermediate HIVES Verified 09/21/19 10:14 acetaminophen AdvReac Mild NAUSEA Verified 09/21/19 10:14 albuterol AdvReac Mild proair Verified 09/21/19 10:14 "trouble taking breaths" Home Medications Home Medications Medication Instructions Recorded Confirmed Type esomeprazole magnesium 20 mg 20 mg PO BID cap 09/05/18 09/21/19 History capsule,delayed release aspirin 81 mg tablet,delayed 81 mg PO QAM 09/17/18 09/21/19 History release cholecalciferol (vitamin D3) 25 2,000 units PO BID cap 09/17/18 09/21/19 History mcg (1,000 unit) capsule OneTouch Delica Plus Lancet 30 #400 ea NS 12/23/18 09/11/19 Rx gauge OneTouch Verio test strips #400 ea NS 12/23/18 09/11/19 Rx potassium chloride 20 mEq 20 meq PO BID 02/25/19 09/21/19 History tablet,extended release albuterol sulfate 90 mcg/actuation 1 puffs INH QID #18 gm 03/26/19 09/21/19 Rx aerosol inhaler sacubitril 97 mg-valsartan 103 mg 1 tab PO BID tab 04/10/19 09/21/19 History tablet nitroglycerin [Nitrostat] 0.4 mg SUBLINGUAL UD PRN 04/24/19 09/21/19 History metolazone 5 mg PO MOTH 04/29/19 09/21/19 History Oxygen Home #1 ea 05/19/19 09/11/19 Rx dulaglutide 1.5 mg/0.5 mL 1.5 mg SQ WE #2 ml 06/25/19 09/21/19 Rx subcutaneous pen injector carisoprodol [Soma] 350 mg PO HS PRN 07/27/19 09/21/19 History metoprolol succinate [Toprol XL] 200 mg PO HS 07/27/19 09/21/19 History torsemide 40 mg PO BID #120 tab 08/30/19 09/21/19 Rx doxycycline monohydrate 100 mg PO BID #20 cap 09/09/19 09/21/19 Rx spironolactone 50 mg PO BID 09/11/19 09/21/19 History budesonide 0.25 mg INHALATION Q12 09/21/19 09/21/19 History fluticasone furoate-vilanterol 1 inh INHALATION QAM 09/21/19 09/21/19 History [Noam Bolanosta] Patient History Medical History Chronic respiratory failure 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 Underwent procedure without any complications monitored over night and discharged home. Obstructive sleep apnea SOB (shortness of breath) (Inactive) Umbilical hernia (Inactive) Vitamin D insufficiency Previously deficient, taking Vit D supplementation Surgical History History of carpal tunnel surgery History of cholecystectomy S/P tonsillectomy Family History Father , age 57 of an [place]. Heart disease Myocardial infarction Mother , age 67 of a ruptured neck vessel Sudden Other Depression Lung disease No pertinent family history Denies family history of Ovarian cancer Prostate cancer Breast cancer Colorectal cancer Social History Smoking Status: Never smoker Age Started Using Tobacco: 14; Age Quit Using Tobacco: 18; Cigarettes Per Day: 40-50; Second Hand Exposure: No; Hx Alcohol Use: No Hx Substance Use: No Preferred Language: Kazakh Communication Ability: Effective Visual Impairment: No Limitations Hearing Ability: Normal Dial Marker Required: No Beliefs That Will Affect Care: None marital status: Current Living Situation: Spouse current occupational status: unemployed How many Children do You have: 0 Other Information That Helps Us Care for You: No Feels Safe at Home: Yes Safety Concerns: Feels Safe At This Time Childhood Exposure to Second-Hand Smoke: Yes Dental Care, Regularly: Yes Physical Activity Frequency: Does not Exercise Review of Systems Constitutional: no fever and no chills Eyes: no blind spots and no diplopia Ear, Nose, Mouth, Throat: no hearing loss Respiratory: + cough and + dyspnea Cardiovascular: + chest pain Gastrointestinal: no nausea and no vomiting Genitourinary: no dysuria Musculoskeletal: no myalgia Integumentary: no rash and no lesions Neurologic: + seizure-like activity; no localized weakness, no loss of sensation and no headache(s) Psychiatric: no depression and no anxiety Hematologic / Lymphatic: no easy bleeding and no easy bruising Exam (Neuro) Constitutional: well developed and well nourished; no acute distress Eyes: normal visual obrien by confrontation, PERRL, normal accommodation and EOM intact bilaterally; no fundoscopic abnormality, no nystagmus and no papilledema Cardiovascular: Vessels: normal carotid upstroke; no carotid bruit Neurologic: Oriented to:: Person, Place and Time Memory: Short Term Intact and Remote Intact Attention: Span Intact and Concentration Intact Language: Naming Objects and Repeating Phrases Speech Fluency: negative Dysarthria Speech Aphasia: negative Aphasia Fund of Knowledge: Current Events, Past History and Vocabulary Cranial Nerves: Normal II (Visual obrien full to confrontation, visual acuity normal), III, IV, (Pupils equal round reactive to light and accommodation, eye movements normal), V (Facial sensation intact), VII (There is no facial droop or weakness), VIII (Hearing intact), IX, X (Palate elevates to midline), XI (Shoulder shrug intact) and XII (Tongue protrudes to midline) Motor Strength: Normal Lower Extremities and Normal Upper Extremities; negative Pronator Drift Motor Tone: Normal Lower Extremities and Normal Upper Extremities Muscle Bulk/Involuntary Movements: No Involuntary Movements; negative Muscle Atrophy Sensation: Light Touch Intact, Pain/Temperature Intact, Vibration Intact and Proprioception Intact Coordination: Normal; negative Limited Balance, Dysdiadochokinesia, Finger-Nose Abnormal and Heel-Beckman Abnormal Deep Tendon Reflexes: Rt Triceps: 1+, Lt Triceps: 1+, Rt Biceps: 1+, Lt Biceps: 1+, Rt Brachioradialis: 1+, Lt Brachioradialis: 1+, Rt Patellar: 1+, Lt Patellar: 1+, Rt Ankle: 1+ and Lt Ankle: 1+ Special Tests: negative Babinski Present Gait: Normal Station and Gait Results & Data ([facility]) Vital Signs (Past 12 Hours) Vital Signs Temp Pulse Pulse Resp BP Pulse Ox 09/23/19 07:15 36.7 C 62 18 114/66 97 09/23/19 03:37 36.8 C 65 16 137/74 95 09/22/19 23:51 85 09/22/19 22:38 36.4 C L 79 18 103/65 98 Laboratory Results WBC 9.19, hemoglobin 14.6, hematocrit 43.0, platelet count 200, sodium 135, potassium 3.7, BUN 14, creatinine 0.90, glucose 133, calcium 9.6 Diagnostic Findings Previous imaging evaluation reviewed. CT of the head completed August 28, 2019 was negative for hemorrhage or acute process. No significant abnormalities. CT angiography of the neck revealed minimal scattered plaque bilaterally, no significant stenosis, occlusion, or dissection. CT angiography of the head unremarkable. I reviewed the images as well as the radiologist's interpretation of these tests. An EEG completed August 29, 2019 was normal. No epileptiform abnormalities. Coding Level of Care Code 57826 Initial In Care Lvl 3 Diagnoses Tussive syncope R05
--- NOTE | 2019-09-23 13:37 | Cardiology Consultation ---
Date of Consultation September 23, 2019 Assessment & Plan (1) Acute on chronic HFrEF (heart failure with reduced ejection fraction): Patient with longstanding history of systolic heart failure due to nonischemic cardiomyopathy, past cardiac catheterization performed in [place], 08/27/2017 without evidence of coronary heart disease. He is on IV furosemide 40 mg twice a day along with his home medications, and 5.5 L of urine output were noted yesterday, and 2.6 L of urine output noted thus far today. His electrolytes were not reassessed today, and he has had significant urine output, and is also on metolazone. I therefore requested a basic metabolic panel. Regarding the concerns of transient loss of consciousness episodes. This is something that has been noted as an inpatient and outpatient. He does have a history of nonsustained ventricular tachycardia, but per review of telemetry, I do not see any episodes that correlate with his recent complaints. Device interrogation revealed 1 brief episode of nonsustained ventricular tachycardia prior to 09/15/2019, without evidence of arrhythmia treatment. I am going to request that his defibrillator is re-interrogated with the assistance of [employer]. The [employer] inside technical sales representative will be in the electrophysiology laboratory assisting with cases this afternoon, and interrogation can be performed after the completion of these cases. At this time, I doubt that this is arrhythmia related syncope. As noted, the patient's blood-tinged sputum has been an ongoing issue for which she has been evaluated in the past. I think it would be most prudent for him to maintain his current outpatient antihypertensives, and outpatient medications. I am going to discontinue his IV furosemide and place him back on his outpatient regimen. Further advice to be forthcoming. History of Present Illness Attending Physician: Shemar Sky History of Present Illness Alok Huff is a 43 year old male seen in cardiology consultation per the request of Dr Sky for the evaluation of syncope and congestive heart failure. The patient is known to the undersigned having been seen on multiple occasions as an inpatient. He states that he presented to the hospital due to concerns of recurrent cough with bloody sputum. This is been an issue that he is complained of on multiple past occasions and has been worked up in the past. He states that while he was in the emergency room he "passed out 3 times." Review of telemetry reveals sinus rhythm. Sinus bradycardia down to 40 and 50 bpm was noted during sleep last night from 2 AM to approximately 3 AM. The patient is in no acute distress. And he states he is eager for discharge. He has had significant urine output since being placed on his home medications. He has a history of implantation of a single-chamber ICD in March, due to his diagnosis of nonischemic cardiomyopathy with severe left ventricular systolic dysfunction. The device had most recently been assessed by remote interrogation as an outpatient on 09/15/2019 with normal findings at that time. Outpatient problem list: 1.Chronic combined systolic and diastolic heart failure, nonischemic cardiomyopathy, most recent ejection fraction the range of 25-30% on echocardiogram At [facility] Mar 2019. 2.S/P single chamber ICD implantation on 04/08/19 - appropriate function. No arrhythmias per multiple device interrogations 3.Hypertension - uncontrolled today 4.Medication non compliance 5.Nonsustained ventricular tachycardia - stable. 6.MARIELENA 7.Obesity 8.DM 9.LEft LE cellulitis Allergies Allergy/AdvReac Type Severity Reaction Status Date / Time ceftriaxone Allergy Severe SHORTNESS Verified 09/21/19 10:14 OF BREATH lidocaine Allergy Severe SHORTNESS Verified 09/21/19 10:14 OF BREATH, diaphoretic, hives procaine Allergy Severe SHORTNESS Verified 09/21/19 10:14 OF BREATH, diaphoretic, hives amoxicillin Allergy Intermediate HIVES/FACIAL Verified 09/21/19 10:14 SWELLING clavulanic acid Allergy Intermediate HIVES/FACIAL Verified 09/21/19 10:14 SWELLING lisinopril Allergy Intermediate HIVES Verified 09/21/19 10:14 acetaminophen AdvReac Mild NAUSEA Verified 09/21/19 10:14 albuterol AdvReac Mild proair Verified 09/21/19 10:14 "trouble taking breaths" Home Medications Home Medications Medication Instructions Recorded Confirmed Type esomeprazole magnesium 20 mg 20 mg PO BID cap 09/05/18 09/21/19 History capsule,delayed release aspirin 81 mg tablet,delayed 81 mg PO QAM 09/17/18 09/21/19 History release cholecalciferol (vitamin D3) 25 2,000 units PO BID cap 09/17/18 09/21/19 History mcg (1,000 unit) capsule [employer] Delica Plus Lancet 30 #400 ea NS 12/23/18 09/11/19 Rx gauge [employer] Verio test strips #400 ea NS 12/23/18 09/11/19 Rx potassium chloride 20 mEq 20 meq PO BID 02/25/19 09/21/19 History tablet,extended release albuterol sulfate 90 mcg/actuation 1 puffs INH QID #18 gm 03/26/19 09/21/19 Rx aerosol inhaler sacubitril 97 mg-valsartan 103 mg 1 tab PO BID tab 04/10/19 09/21/19 History tablet nitroglycerin [Nitrostat] 0.4 mg SUBLINGUAL UD PRN 04/24/19 09/21/19 History metolazone 5 mg PO MOTH 04/29/19 09/21/19 History Oxygen Home #1 ea 05/19/19 09/11/19 Rx dulaglutide 1.5 mg/0.5 mL 1.5 mg SQ WE #2 ml 06/25/19 09/21/19 Rx subcutaneous pen injector carisoprodol [Soma] 350 mg PO HS PRN 07/27/19 09/21/19 History metoprolol succinate [Toprol XL] 200 mg PO HS 07/27/19 09/21/19 History torsemide 40 mg PO BID #120 tab 08/30/19 09/21/19 Rx doxycycline monohydrate 100 mg PO BID #20 cap 09/09/19 09/21/19 Rx spironolactone 50 mg PO BID 09/11/19 09/21/19 History budesonide 0.25 mg INHALATION Q12 09/21/19 09/21/19 History fluticasone furoate-vilanterol 1 inh INHALATION QAM 09/21/19 09/21/19 History [Breo Ellipta] Patient History Medical History Chronic respiratory failure 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 Underwent procedure without any complications monitored over night and discharged home. Obstructive sleep apnea SOB (shortness of breath) (Inactive) Umbilical hernia (Inactive) Vitamin D insufficiency Previously deficient, taking Vit D supplementation Surgical History History of carpal tunnel surgery History of cholecystectomy S/P tonsillectomy Family History Father , age 57 of an VT. Heart disease Myocardial infarction Mother , age 67 of a ruptured neck vessel Sudden Other Depression Lung disease No pertinent family history Denies family history of Ovarian cancer Prostate cancer Breast cancer Colorectal cancer Social History Smoking Status: Never smoker Age Started Using Tobacco: 14; Age Quit Using Tobacco: 18; Cigarettes Per Day: 40-50; Second Hand Exposure: No; Hx Alcohol Use: No Hx Substance Use: No Preferred Language: Angolan Communication Ability: Effective Visual Impairment: No Limitations Hearing Ability: Normal Motion Designer Required: No Beliefs That Will Affect Care: None marital status: Current Living Situation: Spouse current occupational status: unemployed How many Children do You have: 0 Other Information That Helps Us Care for You: No Feels Safe at Home: Yes Safety Concerns: Feels Safe At This Time Childhood Exposure to Second-Hand Smoke: Yes Dental Care, Regularly: Yes Physical Activity Frequency: Does not Exercise Physical Exam Physical Exam: Temp Pulse Resp BP Pulse Ox 36.7 C 76 18 114/71 95 09/23/19 12:21 09/23/19 12:21 09/23/19 12:21 09/23/19 12:21 09/23/19 12:21 Constitutional: WD/WN, vitals as above Respiratory: normal respiratory effort, lungs clear to auscultation Chest (Breasts): Additional Comments: Left infraclavicular ICD pocket clean dry and intact, no erythema, no hematoma Gastrointestinal (Abdomen): normal bowel sounds, soft, nontender, no hepatosplenomegaly Neurologic: PERRL, EOMI, accommodation nl, no face palsy, no dysarthria Results & Data ([facility]) Vital Signs (Past 12 Hours) Vital Signs Temp Pulse Resp BP Pulse Ox 09/23/19 12:21 36.7 C 76 18 114/71 95 09/23/19 07:15 36.7 C 62 18 114/66 97 09/23/19 03:37 36.8 C 65 16 137/74 95 Laboratory Results Intake and Output 09/22/19 09/23/19 09/23/19 22:59 06:59 14:59 Intake Total 320 / 735 Output Total 800 / 2600 300 / 2600 Balance -480 / -1865 -300 / -1865 Intake: Oral 320 / 735 Output: Urine 800 / 2600 300 / 2600 Other: Weight 152.1 kg Diagnostic Findings EKG performed 09/21/2019 and reviewed independently revealed sinus tachycardia 109 bpm with left anterior fascicular block, unchanged compared to prior Medications Administered Current Inpatient Medications Acetaminophen (Tylenol) 650 mg PO Q4H PRN PRN Reason: Pain or Fever Stop: 10/21/19 14:35 Albuterol (Duoneb) 3 ml NEB Q4R PRN PRN Reason: Wheezing Stop: 10/21/19 22:59 Aspirin (Ecotrin Ectab) 81 mg PO QAM [facility] Stop: 10/22/19 08:59 Last Admin: 09/23/19 08:15 Dose: 81 mg Documented by: Carisoprodol (Soma) 350 mg PO HS PRN PRN Reason: muscle pain Stop: 10/21/19 14:35 Last Admin: 09/21/19 20:12 Dose: 350 mg Documented by: Dextrose (Dextrose 50%) 25 - 50 ml IV UD PRN; Protocol PRN Reason: Hypoglycemia Protocol Stop: 10/21/19 14:35 Fluticasone/Vilanterol (Breo Ellipta 200/25 Mcg Inh) 1 puffs INH QAM [facility] Stop: 10/22/19 08:59 Last Admin: 09/23/19 08:15 Dose: 1 puffs Documented by: Glucagon (Glucagen) 1 mg SQ UD PRN; Protocol PRN Reason: Hypoglycemia Protocol Stop: 10/21/19 14:35 Glucose (Dex4 Glucose) 4 - 8 tabs PO UD PRN; Protocol PRN Reason: Hypoglycemia Protocol Stop: 10/21/19 14:35 Glucose (Glucose 40%) 15 - 30 gm PO UD PRN; Protocol PRN Reason: Hypoglycemia Protocol Stop: 10/21/19 14:35 Furosemide 40 mg/ Syringe 4 mls @ 4 mls/min IV [id number] [facility] Stop: 10/21/19 19:59 Last Admin: 09/23/19 08:15 Dose: 4 mls/min Documented by: Insulin Aspart (Novolog Flexpen) 0 units SC ACHS [facility] Stop: 10/21/19 16:29 Last Admin: 09/23/19 12:05 Dose: 8 units Documented by: Insulin Human NPH (Novolin N Nph) 8 units SC BIDM [facility] Stop: 10/21/19 16:59 Last Admin: 09/23/19 08:16 Dose: 8 units Documented by: Metolazone (Zaroxolyn) 5 mg PO DAILY@0830 [facility] Stop: 10/22/19 08:29 Last Admin: 09/23/19 08:15 Dose: 5 mg Documented by: Metoprolol Succinate (Toprol Xl) 200 mg PO HS [facility] Stop: 10/21/19 20:59 Last Admin: 09/22/19 20:50 Dose: 200 mg Documented by: Miscellaneous (Carbohydrates For Hypoglycemia) 15 - 30 gm PO UD PRN PRN Reason: Hypoglycemia Protocol Stop: 10/21/19 14:35 Ondansetron HCl (Zofran) 4 mg IV Q6H PRN PRN Reason: Nausea Stop: 10/21/19 14:35 Pantoprazole Sodium (Protonix) 40 mg PO BID [facility] Stop: 10/21/19 20:59 Last Admin: 09/23/19 08:15 Dose: 40 mg Documented by: Potassium Chloride (Klor-Con M20) 20 meq PO BID [facility] Stop: 10/21/19 20:59 Last Admin: 09/23/19 08:15 Dose: 20 meq Documented by: Sacubitril/Valsartan (Entresto 97/103mg) 1 tab PO BID [facility] Stop: 10/21/19 20:59 Last Admin: 09/23/19 08:15 Dose: 1 tab Documented by: Spironolactone (Aldactone) 50 mg PO BID17 [facility] Stop: 10/21/19 16:59 Last Admin: 09/23/19 08:15 Dose: 50 mg Documented by: Vitamin D (Vitamin D3) 2,000 units PO BID [facility] Stop: 10/21/19 20:59 Last Admin: 09/23/19 08:14 Dose: 2,000 units Documented by:
[2019-09-23] MEDS ORDERED: TORSEMIDE 20 MG TAB PO SCH (14:00)
[2019-09-23 15:02] LABS: BUN Creatinine Ratio 21.1 (10-20); Calcium 9.2 mg/dl (8.5-10.1); Creatinine Clr Calc Pharmacy 100.5 ml/min; Est GFR (African American) 72.6; Est GFR (Non-African American) 62.6; Potassium 4.3 mmol/L (3.5-5.1)
--- NOTE | 2019-09-23 15:35 | Communication Note ---
Date of Service: September 23, 2019 Cardiac Enzymes 09/21/19 09/22/19 09/23/19 Range/Units 09:30 07:43 14:02 Creatinine 0.95 0.98 1.38 D (0.6-1.4) mg/dl Comprehensive Metabolic Panel 09/23/19 Range/Units 14:02 Sodium 135 L (136-145) mmol/L Potassium 4.3 D (3.5-5.1) mmol/L Chloride 102 (98-107) mmol/L Carbon Dioxide 26 (21-32) mmol/L BUN 29 H D (7-18) mg/dl Creatinine 1.38 D (0.6-1.4) mg/dl Glucose 99 (70-99) mg/dl Calcium 9.2 (8.5-10.1) mg/dl Intake and Output 09/23/19 09/23/19 09/23/19 06:59 14:59 22:59 Intake Total 680 / 680 Output Total 300 / 2600 1050 / 1050 Balance -300 / -1865 -370 / -370 Intake: Oral 680 / 680 Output: Urine 300 / 2600 1050 / 1050 Other: Weight 152.1 kg Labs reveal stable findings. Await device interrogation.
--- NOTE | 2019-09-23 16:46 | Communication Note ---
Date of Service: September 23, 2019 ICD interrogation performed with the help of [employer] insurance sales representative. The patient's single-chamber ICD is appropriately. The patient does have a recent 20 beat run of nonsustained ventricular tachycardia noted on 09/09/2019, With spontaneous offset to sinus rhythm, no therapy is indicated or delivered. There are no arrhythmia episodes that correlate with the patient's recent subjective loss of consciousness episodes. Continue outpatient CHF treatment regimen.
--- NOTE | 2019-10-04 08:41 | Discharge Summary ---
Date of Service September 23, 2019 Admission HPI Per Admitting Provider Alok Huff is a 43 year old male well known to this service with non-ischemic cardiomyopathy and multiple admissions for volume overload with chest pain, shortness of breath, hemoptysis likely related to poor adherence to diet, fluid restriction, medications and understanding of his medical conditions. On this occasion he reports all his usual symptoms with shortness of breath, chest pain, hemoptysis getting gradually worse over the last 2-3 days. He was last discharged just 8 days ago. He does not weight himself. He reports compliance with his BiPAP although his shortness of breath and nausea became so bad last night he was unable to wear it. On this occasion he also mentions syncopal episodes which is a new symptom he has not previously mentioned to myself. This occurred three times last night as per the patient. He has also been taking doxycycline for e left leg cellulitis diagnosed originally back on September 08 ER visit. In the ER there was also some concern about leg swelling L > R therefore patient had venous doppler which was negative for DVT. Principal Diagnosis syncope Discharge Exam Constitutional: Not in acute distress + morbidly obese; + not well nourished Eyes: + anicteric sclerae; normal pupil size Neck: trachea midline, + short neck and + thick neck Respiratory: no cough, normal respiratory pattern and expiratory phase not prolonged Auscultation: improve breath sounds no crackles, no rales, no rhonchi and no wheezes Cardiovascular: Rate/Rhythm: + tachycardic Heart Sounds: no murmur Vessels: no JVD (unable to assess with neck size) Extremities: normal capillary refill and + edema (1+ equal to thighs); no calf tenderness Gastrointestinal (Abdomen): Inspection/Auscultation: + abdomen abnormal to inspection (obese) Musculoskeletal: no cyanosis or clubbing, extremities motor strength 5/5 Skin: No cellulitic areas on abdomen or legs Neurologic: moves all extremities and awake; not confused Motor/Sensory: no tremor, no pronator drift and no sensory deficit Psychiatric: Orientation: alert and oriented x 3 Affect: euthymic affect Genitourinary: no CVA tenderness Lymphatic: no cervical or axillary lymphadenopathy Discharge Data Allergies Allergy/AdvReac Type Severity Reaction Status Date / Time ceftriaxone Allergy Severe SHORTNESS Verified 10/04/19 00:36 OF BREATH lidocaine Allergy Severe SHORTNESS Verified 10/04/19 00:36 OF BREATH, diaphoretic, hives procaine Allergy Severe SHORTNESS Verified 10/04/19 00:36 OF BREATH, diaphoretic, hives amoxicillin Allergy Intermediate HIVES/FACIAL Verified 10/04/19 00:36 SWELLING clavulanic acid Allergy Intermediate HIVES/FACIAL Verified 10/04/19 00:36 SWELLING lisinopril Allergy Intermediate HIVES Verified 10/04/19 00:36 acetaminophen AdvReac Mild NAUSEA Verified 10/04/19 00:36 albuterol AdvReac Mild proair Verified 10/04/19 00:36 "trouble taking breaths" Consultations 09/21/19 11:59 ED Decision to Admit Stat 09/23/19 07:47 Consult Neurology Routine 09/23/19 07:49 Consult Cardiology Routine Ordered Studies 09/21/19 09:33 US venous doppler [facility] Hospital Course (1) Syncope: Reported by patient, multiple episodes of losing consciousness. Suspect due to acute respiratory failure with hypoxia and not able to tolerate the BiPAP last night - although patient not reliable historian. Monitor on telemetry for any arrhythmias and interrogate AICD for the same + any firing. ICD interrogation was normal. Added gabapentin to discharge instructions. Appreciate input from Neurology: Recurrent tussive syncope. This patient was evaluated for this issue last month. No evidence of epilepsy or seizure disorder. Would recommend a trial of a cough suppressant such as dextromethorphan or possibly codeine. Gabapentin may also be utilized for cough syncope as well although clinical evidence for use of anticonvulsants in the setting is limited. If dextromethorphan and codeine are not considered appropriate options for this patient, would recommend starting with a low-dose of gabapentin such as 200 mg 3 times per day with gradual up titration to potentially 600 mg 3 times per day. (2) Acute and chronic respiratory failure with hypoxia: Aim O2 sats > 92%, VBG does not suggest any acute CO2 retention Needs BiPAP 31/10 when napping and at night Secondary to CHF as below (3) Acute on chronic HFrEF (heart failure with reduced ejection fraction): Nitro patch 1inch and lasix 40mg IV given in ER Give additional Lasix 40mg IV now, can remove nitro patch once he gets to the [facility] as long as BP < 180. Improved with lasix 40mg BID17 (I do want the additional dose at 5pm today given) Metolazone 5mg PO increase frequency to daily Spironolactone 50mg PO BID Potassium replacement as necessary Daily weights, strict I&Os Low Na, heart healthy, fluid restrict 1200ml (4) NICM (nonischemic cardiomyopathy): Continue Entresto BID and metoprolol succinate HS Despite chest pain he has had this on all his prior acute CHF episode with mu ltiple negative troponins, will repeat in AM but otherwise no need to trend serially. (5) Hemoptysis: Extensive prior workup with multiple CTs and bronchoscopy Secondary to pulmonary edema as above. Noted on multiple prior episodes. Explained to patient on multiple prior occasions including today, although he contains to say no-one knows why this happens. Avoid VTE prophylaxis while actively bleeding. (6) Hypertensive urgency: Management per acute CHF as above, diuresis should improve his BP (7) AICD (automatic cardioverter/defibrillator) present: Interrogation ordered as above (8) Diabetes mellitus type 2 with complications: HbA1C 7.9 in August. Relatively constant, no need to repeat. Will prescribe his usual inpatient regimen with: Novolin NPH 8 units BID Novolog sliding scale aim BSG 110-140, Correction 25, Carb ratio 9 Notably significantly decreased from outpatient regimen showing his considerably worse diet at home. (9) Obstructive sleep apnea: BiPAP as above when sleeping or napping (10) COPD (chronic obstructive pulmonary disease): No wheezing to suggest exacerbation at the present time. Continue his usual maintenance inhalers Limit duonebs to wheezing as shortness of breath due to pulmonary edema (11) Normocytic anemia: Monitor with CBC in AM, consider iron studies as borderline microcytic (12) DVT prophylaxis: Chemical prophylaxis deferred in setting of hemoptysis, can be started on lovenox once this resolves. SCDs Total Time Total Time Spent Total Time Spent (In Minutes): 32 Total Time Includes: Examination of the Patient, Discharge Planning and Medication Reconciliation Discharge Plan Discharge Items Patient Disposition: Home - Self-Care Reason For Visit: ACUTE ON CHRONIC SYSTOLIC CHF Discharge Diagnosis: Acute on chronic systolic CHF Activity: Resume your previous activity Non-emergency contact: Primary Care Provider Call non-emergency contact if: you have any medication questions Follow-up/Referrals: PCP,NO [Primary Care Provider] - Diet: Regular Addtl Attending Provider Instructions: Added gabapentin for cough suppression. Call 911 and go to the Emergency Room if: * You have tightness or pain in your chest that does not go away with rest or Nitroglycerin * You are very short of breath even with rest Call your doctor if any of the following symptoms or problems start or get worse: * Shortness of breath or difficulty breathing * Wake up at night short of breath * Chest pain * Cough * Swelling of your hands, fee, or legs * More fatigued or tired with your normal activity * Palpitations - sudden fast heart beats WEIGHT * Weigh yourself every morning after using the bathroom. * Use the same scale. * Wear the same amount of clothing. * Write your weight down on your chart. * Call your doctor if you gain more than 2-3 pounds in 1-2 days. MEDICATIONS * Use this discharge instruction sheet for instructions. * Take your medications at the time your doctor ordered. * Do not skip a dose of your medicines. * If you miss a dose of medicine, take as soon as possible, but DO NOT DOUBLE A DOSE. * Read your medicine information when you get home. * Know all of the side effects of your medicine. * Call your doctor's office if you have any side effects. * Be sure all of your doctors know what medicine and herbs you take (including cold, flu, and herbal medicine). * Pain Medicine: If you do not get relief from your pain, please call your doctor for help. Take the following with you to your follow-up doctor appointments: * Weight Chart * Medication List * List of questions Do not drink excessive alcohol, beer or wine. Pending Studies at Discharge: No Stand-Alone Forms: My [facility] [place] Liquor Wine & Spirits, Smoking Cessation Medications and DC Order Prescriptions: New gabapentin 100 mg capsule 300 mg PO DAILY Qty: 30 RF: 0 Continued (DME) lancets [OneTouch Delica Plus Lancet] 30 gauge misc See Dose Instructions .ROUTE .MEDSUPPLY Qty: 400 RF: 3 (DME) OneTouch Verio test strips strip See Dose Instructions .ROUTE .MEDSUPPLY Qty: 400 RF: 3 (DME) Oxygen Home Liters Per Minute See Rx Instructions .ROUTE .MEDSUPPLY Qty: 1 RF: 5 aspirin [Aspirin Low Dose] 81 mg tablet,delayed release (DR/EC) 81 mg PO QAM RF: 0 nitroglycerin [Nitrostat] 0.4 mg tablet, sublingual 0.4 mg sublingual UD PRN (Reason: Chest Pain) RF: 0 budesonide 0.25 mg/2 mL suspension for nebulization 0.25 mg inhalation Q12 RF: 0 Breo Ellipta 200-25 mcg/dose blister with device 1 inh INHALATION QAM RF: 0 torsemide 20 mg tablet 40 mg PO BID Qty: 120 RF: 2 No Action isosorbide mononitrate 30 mg tablet extended release 24 hr 30 mg PO DAILY RF: 0 potassium chloride [Klor-Con M20] 20 mEq tablet,ER particles/crystals 20 meq PO BID RF: 0 spironolactone 25 mg tablet 50 mg PO QAM RF: 0 esomeprazole magnesium 20 mg Tablet,Delayed Release (Dr/Ec) 20 mg PO BID RF: 0 cholecalciferol (vitamin D3) [Vitamin D3] 50 mcg (2,000 unit) Tablet 50 mcg PO BID RF: 0 Discharge Orders: Discharge Order (Routine); Ordered 09/23/19 Ordered By: Shemar Sky Admission Data Admit Date/Time: 09/21/19 12:47 Attending Provider: Shemar Syk Admit Provider: Migue Laguna Primary Care Provider: PCP,NO Other Providers: Jason Alonzo ; Vick Benoit Other Interventions: Discharge Summary Assessment (RN) Last Done: 09/23/19 17:42 Coding Level of Care Code 81168 OBS Care - Discharge Diagnoses Syncope R55 Syncope type: unspecified Acute and chronic respiratory failure with hypoxia J96.21 Acute on chronic HFrEF (heart failure with reduced ejection fraction) I50.23 NICM (nonischemic cardiomyopathy) I42.8 Hemoptysis R04.2 Hypertensive urgency I16.0 AICD (automatic cardioverter/defibrillator) present Z95.810 Diabetes mellitus type 2 with complications E11.8 Obstructive sleep apnea G47.33 COPD (chronic obstructive pulmonary disease) J44.9 COPD type: unspecified COPD Normocytic anemia D64.9 DVT prophylaxis Z29.9 Time Spent (min) 32
== END 2019-09-23 18:06 | disposition home or self-care (01) ==
LOC: ED 09:10 → 2W 09:10 → SUATTDRO 12:47 → 2W 14:16

== ENCOUNTER 2019-10-04 00:10 | Inpatient (IN) ==
[2019-10-04] MEDS ORDERED: FUROSEMIDE 40 MG/4 ML VIAL IV STA (00:27)
[2019-10-04] MEDS ORDERED: NITROGLYCERIN 2% OINTMENT 30GM TUBE EXT STA (00:27)
--- NOTE | 2019-10-04 00:38 | Emergency Department Note ---
Impression & Plan Acute respiratory distress, Hypertension, CHF (congestive heart failure), Tachycardia ED Provider Note NAME: HARDIK LOVE AGE: 43 SEX: M : 1975 ARRIVES VIA: Ambulance INFORMANT: [Patient][ems, nurses] ED PROVIDER(S): [Abhilash Fuentes MD] CHIEF COMPLAINT: Chest pain HISTORY OF PRESENT ILLNESS: The patient is a 43-year-old male with a complicated heart history. He has a history of low ejection fraction heart failure. He has an AICD in place. The patient presents with 3 hours of left chest pressure/pain and left arm pain. The pain is moderate in severity. The patient also has been feeling more short of breath and has been coughing up more blood tinged sputum. He has been sweating. He presents by ambulance. In route, he received aspirin orally, he refused nitroglycerin. The patient states that he was fine earlier in the day. He saw his doctors office today in fact. The patient feels better sitting forward. He states he wears oxygen as needed and put his oxygen on tonight because he was so winded. The oxygen did not really help that much. REVIEW OF SYSTEMS: See HPI for pertinent positives and negatives. A total of ten systems were reviewed and were otherwise negative. PMHx/PSHx: See Below SOCIAL HISTORY: See Below. PHYSICAL EXAM: GENERAL: Patient is in significant distress, seems very short of breath. HEENT: No acute trauma, normocephalic atraumatic, mucous membranes moist, no nasal congestion, no scleral icterus. NECK: No stridor, no adenopathy, no meningismus, trachea is midline. LUNGS: Diminished breath sounds with some crackles and rhonchi heard bilaterally. There is an increased respiratory rate. I do not hear any wheezing. The patient does appear to be in respiratory distress. HEART: Tachycardic, no obvious murmurs, regular rhythm. ABDOMEN: Soft, nontender, bowel sounds positive, no hernias, no peritonitis. EXTREMITIES: No cyanosis, moderate bilateral pedal edema, full range of motion of all the joints without pain or difficulty, no signs for acute trauma. NEUROLOGIC: Oriented x 3, no acute motor or sensory deficits, no focal weakness. SKIN: No rash, no jaundice, moderate diaphoresis. DIFFERENTIAL DIAGNOSIS: Cardiac ischemia, aortic dissection, CHF, pneumothorax, pulmonary embolism, pneumothorax, pneumonia, pericarditis, myocarditis, esophageal rupture, GERD, ch olecystitis, pancreatitis, musculoskeletal, as well as other pathologies. EMERGENCY DEPARTMENT COURSE/PROCEDURES: ECG: Indication was chest pain or shortness of breath. The ECG shows a sinus tachycardia with some PVCs. The rate is 124. There are inverted T waves in a few of the lateral leads. The QTc is 459. No ST elevation. Compared to an ECG from 21 September 2019, there is no significant change. Continuous Cardiac Monitoring: An order was placed for continuous cardiac monitoring. The monitor shows a rate of 121 with sinus tachycardia. Critical Care Note: I have personally spent greater than 61 minutes of critical care time in the direct management of this patient. This includes bedside care, interpretation of diagnostic studies, and testing, discussion with consultants, patient, and family members, and other required patient management activities. This 61 minutes is in excess of all separately billable procedures. MEDICAL DECISION MAKING: There is no leukocytosis or concerning anemia. There is a normal platelet count. No coagulopathy. ABG does not show acidosis. There was no hypoxia or CO2 retention. Renal panel testing shows some renal insufficiency with a creatinine of 1.54. No concerning electrolyte abnormality in need of emergent correction. No liver enzyme elevation. No evidence for pancreatitis. ECG shows a sinus tachycardia, no acute ischemic change. Cardiac enzyme testing x1 is not consistent with acute cardiac injury. Chest film shows heart failure. There was no pneumonia or pneumothorax. BNP was elevated consistent with fluid overload/CHF. The patient presented in respiratory distress. He was diaphoretic, he was tachycardic, he was hypertensive. He was very short of breath and was using accessory muscles to breathe. He had a hard time speaking full sentences. The patient was aggressively managed. He was given IV Lasix, 60 mg. He was placed on BiPAP. He received 3 inches of nitroglycerin paste. The patient is making some improvement with the above treatment. He seems more comfortable. He is in need of a hospital stay and further diuresis. I did speak to the patient, I spoke with the pillowcase cutter. The on-call hospitalist was consulted. In short, the patient appears to be in heart failure, this came on quite suddenly and led to his dyspnea and ED presentation. 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 Underwent procedure without any complications monitored over night and discharged home. Obstructive sleep apnea SOB (shortness of breath) Umbilical hernia Vitamin D insufficiency Previously deficient, taking Vit D supplementation Surgical History History of carpal tunnel surgery History of cholecystectomy S/P tonsillectomy Family History Father , age 57 of an NH. Heart disease Myocardial infarction Mother , age 67 of a ruptured neck vessel Sudden Other Depression Lung disease No pertinent family history Denies family history of Ovarian cancer Prostate cancer Breast cancer Colorectal cancer Social History Smoking Status: Never smoker Age Started Using Tobacco: 14; Age Quit Using Tobacco: 18; Cigarettes Per Day: 40-50; Second Hand Exposure: No; Hx Alcohol Use: No Hx Substance Use: No Preferred Language: [place] Communication Ability: Effective Visual Impairment: No Limitations Hearing Ability: Normal Balance Engineer Required: No Beliefs That Will Affect Care: None marital status: Current Living Situation: Spouse current occupational status: unemployed How many Children do You have: 0 Feels Safe at Home: Yes Childhood Exposure to Second-Hand Smoke: Yes Dental Care, Regularly: Yes Physical Activity Frequency: Does not Exercise Allergies Allergies Allergy/AdvReac Type Severity Reaction Status Date / Time ceftriaxone Allergy Severe SHORTNESS Verified 10/04/19 00:36 OF BREATH lidocaine Allergy Severe SHORTNESS Verified 10/04/19 00:36 OF BREATH, diaphoretic, hives procaine Allergy Severe SHORTNESS Verified 10/04/19 00:36 OF BREATH, diaphoretic, hives amoxicillin Allergy Intermediate HIVES/FACIAL Verified 10/04/19 00:36 SWELLING clavulanic acid Allergy Intermediate HIVES/FACIAL Verified 10/04/19 00:36 SWELLING lisinopril Allergy Intermediate HIVES Verified 10/04/19 00:36 acetaminophen AdvReac Mild NAUSEA Verified 10/04/19 00:36 albuterol AdvReac Mild proair Verified 10/04/19 00:36 "trouble taking breaths" Home Meds Home Medications Medication Instructions Recorded Confirmed esomeprazole magnesium 20 mg 20 mg PO BID cap 09/05/18 10/03/19 capsule,delayed release aspirin 81 mg tablet,delayed 81 mg PO QAM 09/17/18 10/04/19 release cholecalciferol (vitamin D3) 25 2,000 units PO BID cap 09/17/18 10/04/19 mcg (1,000 unit) capsule potassium chloride 20 mEq 20 meq PO BID 02/25/19 10/03/19 tablet,extended release sacubitril 97 mg-valsartan 103 mg 1 tab PO BID tab 04/10/19 10/03/19 tablet nitroglycerin [Nitrostat] 0.4 mg SUBLINGUAL UD PRN 04/24/19 10/03/19 metolazone 5 mg PO MOTH 04/29/19 10/03/19 carisoprodol [Soma] 350 mg PO HS PRN 07/27/19 10/03/19 metoprolol succinate [Toprol XL] 200 mg PO HS 07/27/19 10/03/19 spironolactone 25 mg PO BID 09/11/19 10/04/19 Breo Ellipta 1 inh INHALATION QAM 09/21/19 10/03/19 budesonide 0.25 mg INHALATION Q12 09/21/19 10/03/19 isosorbide mononitrate 30 mg PO DAILY 10/04/19 10/04/19 Previous Rx's Medication Instructions Recorded OneTouch Delica Plus Lancet 30 #400 ea NS 12/23/18 gauge OneTouch Verio test strips #400 ea NS 12/23/18 albuterol sulfate 90 mcg/actuation 1 puffs INH QID #18 gm 03/26/19 aerosol inhaler Oxygen Home #1 ea 05/19/19 dulaglutide 1.5 mg/0.5 mL 1.5 mg SQ WE #2 ml 06/25/19 subcutaneous pen injector torsemide 40 mg PO BID #120 tab 08/30/19 gabapentin 300 mg PO DAILY #30 cap 09/23/19 Results & Data (ED) Vital Signs Vital Signs - 24 hr 10/04/19 00:17 10/04/19 00:39 10/04/19 00:59 Temperature 37 C Temperature Source Oral Pulse Rate 126 H 117 H 120 H Pulse Rate [Apical] Respiratory Rate 28 H 29 H Respiratory Effort / Characteristics Spontaneous Respiratory Depth Normal Respiratory Pattern Tachypnea Blood Pressure 203/135 H Blood Pressure [Right Arm] Blood Pressure Mean 157 Blood Pressure Mean [Right Arm] Blood Pressure Position Sitting Pulse Oximetry 93 98 99 Oxygen Delivery Method Nasal Cannula BiPAP Oxygen Flow Rate 5 Fraction of Inspired Oxygen 40 40 SaO2/FiO2 Ratio 247 Sepsis Recent Fever Within 48 Hours No Sepsis New/Unexplained Change in Mental Status No Sepsis Action Taken by Nursing MD Previously Notified 10/04/19 01:00 10/04/19 01:16 Temperature Temperature Source Pulse Rate Pulse Rate [Apical] 120 H Respiratory Rate 30 H Respiratory Effort / Characteristics Respiratory Depth Respiratory Pattern Blood Pressure Blood Pressure [Right Arm] 194/149 H Blood Pressure Mean Blood Pressure Mean [Right Arm] 164 Blood Pressure Position Pulse Oximetry Oxygen Delivery Method BiPAP BiPAP Oxygen Flow Rate Fraction of Inspired Oxygen 40 40 SaO2/FiO2 Ratio Sepsis Recent Fever Within 48 Hours Sepsis New/Unexplained Change in Mental Status Sepsis Action Taken by Usp Medications Current Medication List: was personally reviewed by me Laboratory Data Attestation: I reviewed the patient's lab results. Result diagrams: 10/04/19 00:30 10/04/19 00:30 Lab Results 10/04/19 10/04/19 10/04/19 Range/Units 00:30 00:30 00:30 WBC 8.88 (4.8-10.8) K/uL RBC 5.17 (4.7-6.1) M/uL Hgb 14.2 (14.0-18.0) g/dL Hct 42.6 (42-52) % MCV 82.4 (80-100) fL MCH 27.5 (25-34) pg MCHC 33.3 (32-36) g/dL RDW Std Deviation 53.0 H (36.4-46.3) fL RDW Coeff of Zoltan 17.7 H (11.5-14.5) % Plt Count 183 (130-400) K/uL MPV 10.1 (7.4-10.4) fL Immature Gran % (Auto) 0.5 % Neut % (Auto) 61.5 % Lymph % (Auto) 28.5 % [place] % (Auto) 7.7 % Eos % (Auto) 1.7 % Baso % (Auto) 0.1 % Neut # (Auto) 5.47 (1.4-6.5) K/uL Lymph # (Auto) 2.53 (1.2-3.4) K/uL [place] # (Auto) 0.68 H (0.11-0.59) K/uL Eos # (Auto) 0.15 (0-0.5) K/uL Baso # (Auto) 0.01 (0-0.2) K/uL Immature Gran # (Auto) 0.04 H (0.00-0.02) K/uL PT 10.7 (9.0-12.0) Seconds INR 1.0 (0.9-1.1) APTT 27.7 (21.0-31.0) Seconds PTT Ratio 1.0 ABG pH (7.35-7.45) ABG pCO2 (35-46) mmHg ABG pO2 (80-95) mmHg ABG HCO3 (19-24) mmol/L ABG O2 Saturation (90-95) % ABG Base Excess (-9-1.8) mEq/L Ankur Test (Pos) Barometric Pressure mm/Hg Oxygen Given Sodium 142 (136-145) mmol/L Potassium 4.1 (3.5-5.1) mmol/L Chloride 111 H (98-107) mmol/L Carbon Dioxide 25 (21-32) mmol/L Anion Gap 6.0 (3-11) BUN 16 (7-18) mg/dl Creatinine 1.54 H (0.6-1.4) mg/dl Est Cr Clr Drug Dosing 94.3 ml/min Est GFR ( Amer) 63.6 Est GFR (Non-Af Amer) 54.8 BUN/Creatinine Ratio 10.5 (10-20) Glucose 162 H (70-99) mg/dl Calcium 8.8 (8.5-10.1) mg/dl Magnesium 1.8 (1.8-2.4) mg/dl Total Bilirubin 0.6 (0.2-1) mg/dl AST 22 (15-37) U/L ALT 27 (12-78) U/L Alkaline Phosphatase 93 (45-117) U/L Troponin I 0.016 (0-0.045) ng/ml NT-Pro-B Natriuret Pep 5851 H (0-450) pg/ml Total Protein 7.5 (6.4-8.2) gm/dl Albumin 3.2 L (3.4-5.0) gm/dl Globulin 4.3 H (2.5-4.0) gm/dl Albumin/Globulin Ratio 0.7 L (0.9-2) Lipase 159 (73-393) U/L 10/04/19 Range/Units 00:59 WBC (4.8-10.8) K/uL RBC (4.7-6.1) M/uL Hgb (14.0-18.0) g/dL Hct (42-52) % MCV (80-100) fL MCH (25-34) pg MCHC (32-36) g/dL RDW Std Deviation (36.4-46.3) fL RDW Coeff of Zoltan (11.5-14.5) % Plt Count (130-400) K/uL MPV (7.4-10.4) fL Immature Gran % (Auto) % Neut % (Auto) % Lymph % (Auto) % [place] % (Auto) % Eos % (Auto) % Baso % (Auto) % Neut # (Auto) (1.4-6.5) K/uL Lymph # (Auto) (1.2-3.4) K/uL [place] # (Auto) (0.11-0.59) K/uL Eos # (Auto) (0-0.5) K/uL Baso # (Auto) (0-0.2) K/uL Immature Gran # (Auto) (0.00-0.02) K/uL PT (9.0-12.0) Seconds INR (0.9-1.1) APTT (21.0-31.0) Seconds PTT Ratio ABG pH 7.37 (7.35-7.45) ABG pCO2 41 (35-46) mmHg ABG pO2 175 H (80-95) mmHg ABG HCO3 23 (19-24) mmol/L ABG O2 Saturation 99.3 H (90-95) % ABG Base Excess -2.1 (-9-1.8) mEq/L Ankur Test POS (Pos) Barometric Pressure 730.3 mm/Hg Oxygen Given 5L FIO2 40% Sodium (136-145) mmol/L Potassium (3.5-5.1) mmol/L Chloride (98-107) mmol/L Carbon Dioxide (21-32) mmol/L Anion Gap (3-11) BUN (7-18) mg/dl Creatinine (0.6-1.4) mg/dl Est Cr Clr Drug Dosing ml/min Est GFR ( Amer) Est GFR (Non-Af Amer) BUN/Creatinine Ratio (10-20) Glucose (70-99) mg/dl Calcium (8.5-10.1) mg/dl Magnesium (1.8-2.4) mg/dl Total Bilirubin (0.2-1) mg/dl AST (15-37) U/L ALT (12-78) U/L Alkaline Phosphatase (45-117) U/L Troponin I (0-0.045) ng/ml NT-Pro-B Natriuret Pep (0-450) pg/ml Total Protein (6.4-8.2) gm/dl Albumin (3.4-5.0) gm/dl Globulin (2.5-4.0) gm/dl Albumin/Globulin Ratio (0.9-2) Lipase (73-393) U/L Administered Medications Discontinued Medications Furosemide (Furosemide 40 Mg/4 Ml Vial) 60 mg IV NOW STA Stop: 10/04/19 00:28 Last Admin: 10/04/19 00:44 Dose: 60 mg Documented by: [id number] Nitroglycerin (Nitroglycerin 2% Ointment 30gm Tube) 3 inch EXT NOW STA Stop: 10/04/19 00:28 Last Admin: 10/04/19 00:44 Dose: 3 inch Documented by: [id number] Imaging Data Attestation: I personally reviewed and interpreted this imaging study as follows: My Impression: Chest x-ray: There is CHF present, no pneumothorax, no obvious pneumonia. Blood Pressure Blood Pressure Findings: Elevated blood pressure Blood Pressure Disposition: further management by hospitalist Discharge Plan Visit Data Chief Complaint: Chest Pain Stated Complaint: CHEST PAIN/SHORT OF BREATH/BLOODY SPUTUM ED Provider: Abhilash Fuentes Discharge Problem: Acute respiratory distress, Hypertension, CHF (congestive heart failure), Tachycardia Patient Disposition: Admitted As Inpatient Condition: Serious Forms Stand Alone Forms: My [facility] Prescriptions Prescriptions: No Action (DME) lancets [OneTouch Delica Plus Lancet] 30 gauge misc See Dose Instructions .ROUTE .MEDSUPPLY Qty: 400 RF: 3 (DME) OneTouch Verio test strips strip See Dose Instructions .ROUTE .MEDSUPPLY Qty: 400 RF: 3 Trulicity 1.5 mg/0.5 mL pen injector 1.5 mg SQ WE Qty: 2 RF: 5 potassium chloride [K-Tab] 20 mEq tablet extended release 20 meq PO BID RF: 0 albuterol sulfate [Ventolin HFA] 90 mcg/actuation HFA aerosol inhaler 1 puffs INH QID Qty: 18 RF: 2 (DME) Oxygen Home Liters Per Minute See Rx Instructions .ROUTE .MEDSUPPLY Qty: 1 RF: 5 esomeprazole magnesium [Nexium] 20 mg capsule,delayed release(DR/EC) 20 mg PO BID RF: 0 aspirin [Aspirin Low Dose] 81 mg tablet,delayed release (DR/EC) 81 mg PO QAM RF: 0 nitroglycerin [Nitrostat] 0.4 mg tablet, sublingual 0.4 mg sublingual UD PRN (Reason: Chest Pain) RF: 0 spironolactone 25 mg tablet 25 mg PO BID RF: 0 budesonide 0.25 mg/2 mL suspension for nebulization 0.25 mg inhalation Q12 RF: 0 Breo Ellipta 200-25 mcg/dose blister with device 1 inh INHALATION QAM RF: 0 gabapentin 100 mg capsule 300 mg PO DAILY Qty: 30 RF: 0 cholecalciferol (vitamin D3) [Vitamin D3] 1,000 unit capsule 2,000 units PO BID RF: 0 Entresto 97-103 mg tablet 1 tab PO BID RF: 0 metolazone 5 mg tablet 5 mg PO MOTH RF: 0 carisoprodol [Soma] 350 mg tablet 350 mg PO HS PRN (Reason: muscle pain) RF: 0 metoprolol succinate [Toprol XL] 200 mg tablet extended release 24 hr 200 mg PO HS RF: 0 torsemide 20 mg tablet 40 mg PO BID Qty: 120 RF: 2 isosorbide mononitrate 30 mg tablet extended release 24 hr 30 mg PO DAILY RF: 0 Referrals Referrals: Rodney Keyes MD [Primary Care Provider] - Discharge Problem: Hypertension Qualifiers: Hypertension type: unspecified Qualified Code(s): I10 - Essential (primary) hypertension CHF (congestive heart failure) Qualifiers: Heart failure type: unspecified Heart failure chronicity: acute on chronic Qualified Code(s): I50.9 - Heart failure, unspecified
[2019-10-04 00:47] LABS: Basophils # (auto) 0.01 K/uL (0-0.2); Basophils % (auto) 0.1 %; Eosinophils # (auto) 0.15 K/uL (0-0.5); Eosinophils % (auto) 1.7 %; Hematocrit (blood only) 42.6 % (42-52); Hemoglobin 14.2 g/dL (14.0-18.0); Immature Granulocytes # (auto) 0.04 K/uL (0.00-0.02); Immature Granulocytes % (auto) 0.5 %; Lymphocytes # (auto) 2.53 K/uL (1.2-3.4); Lymphocytes % (auto) 28.5 %; Mean Corpuscular Hemoglobin 27.5 pg (25-34); Mean Corpuscular Hgb Conc 33.3 g/dL (32-36); Mean Corpuscular Volume 82.4 fL (80-100); Mean Platelet Volume 10.1 fL (7.4-10.4); Monocytes # (auto) 0.68 K/uL (0.11-0.59); Monocytes % (auto) 7.7 %; Neutrophils # (auto) 5.47 K/uL (1.4-6.5); Neutrophils % (auto) 61.5 %; Platelet Count 183 K/uL (130-400); RDW Coefficient of Variation 17.7 % (11.5-14.5); Red Blood Count 5.17 M/uL (4.7-6.1); White Blood Count 8.88 K/uL (4.8-10.8)
[2019-10-04 01:08] LABS: Partial Thromboplastin Time 27.7 Seconds (21.0-31.0); Prothrombin Time 10.7 Seconds (9.0-12.0)
[2019-10-04 01:10] LABS: Base Excess ABG -2.1 mEq/L (-9-1.8); HCO3 ABG 23 mmol/L (19-24); Oxygen Saturation ABG 99.3 % (90-95); PCO2 ABG 41 mmHg (35-46); PO2 ABG 175 mmHg (80-95); pH ABG 7.37 (7.35-7.45)
[2019-10-04 01:10] LABS: Albumin Level 3.2 gm/dl (3.4-5.0); BUN Creatinine Ratio 10.5 (10-20); Calcium 8.8 mg/dl (8.5-10.1); Creatinine Clr Calc Pharmacy 94.3 ml/min; Est GFR (African American) 63.6; Est GFR (Non-African American) 54.8; Magnesium 1.8 mg/dl (1.8-2.4); Potassium 4.1 mmol/L (3.5-5.1)
[2019-10-04 01:15] LABS: Allen Test POS (Pos)
[2019-10-04 01:16] LABS: Albumin Globulin Ratio 0.7 (0.9-2); Bilirubin,Total 0.6 mg/dl (0.2-1); Globulin 4.3 gm/dl (2.5-4.0); Total Protein 7.5 gm/dl (6.4-8.2); Troponin I 0.016 ng/ml (0-0.045)
--- NOTE | 2019-10-04 02:06 | History & Physical Report ---
Date of Service October 04, 2019 Assessment & Plan (1) Acute on chronic HFrEF (heart failure with reduced ejection fraction): Acute on chronic HFrEF/hypertension/AICD/NICM/hypertensive urgency/history nonsustained V. tach/patient reported multiple episodes of syncope- The patient will be admitted to telemetry for serial cardiac enzymes, serial EKG's, cardiac rhythm monitoring. This will be the eighth admission for patient, for similar symptoms, since April of this year. Continue BiPAP at current settings, and taper to nasal cannula as symptoms improve Hold torsemide 40 [address] twice daily. Place on furosemide drip starting at 10 mg/h. Continue aspirin 81 mg daily, spironolactone 50 mg every morning and isosorbide mononitrate 30 mg daily. Continue Nitropaste 2 inch anterior chest wall every 6 hours, begun in ED. Lopressor 5 mg IV every 4 hours PRN systolic blood pressure greater than 150. Consult his swimming teacher Dr. Vick Benoit Present on Admission?: Yes (2) Hypertension: (3) AICD (automatic cardioverter/defibrillator) present: (4) NICM (nonischemic cardiomyopathy): (5) Hypertensive urgency: (6) Diabetes mellitus type 2 with complications: Place on Accu-Cheks before meals and at bedtime with NovoLog coverage per scale Present on Admission?: Yes History of Present Illness Chief Complaint: The patient presents to the emergency department with acute onset of shortness of breath, left side pressure and left arm pain earlier this evening Primary Care Provider: Rodney Keyes MD The patient is a 43-year-old male with a past medical history including chronic HFrEF, tussive syncope, AICD, NICM, diabetes mellitus, MARIELENA, hypertensive urgency, morbid obesity and COPD. The patient was found to be in acute respiratory failure upon arrival to the ED, and was placed on BiPAP with improvement in symptoms. Most recent hospitalizations since April of this year: 04/29-04/29, 05/04-05/06, 05/24-05/26, 07/26-07/28, 08/27-08/29, 09/10-09/12 and 09/20-09/22. Patient had been doing a little worse than his baseline, however, after going to his outpatient physician appointment today, he became short of breath shortly thereafter, and presented to the ED for assessment. This likely was secondary to his low functional capacity. He does also report several episodes of passing out over the past few days related to his tussive syncope Allergies Allergy/AdvReac Type Severity Reaction Status Date / Time ceftriaxone Allergy Severe SHORTNESS Verified 10/04/19 00:36 OF BREATH lidocaine Allergy Severe SHORTNESS Verified 10/04/19 00:36 OF BREATH, diaphoretic, hives procaine Allergy Severe SHORTNESS Verified 10/04/19 00:36 OF BREATH, diaphoretic, hives amoxicillin Allergy Intermediate HIVES/FACIAL Verified 10/04/19 00:36 SWELLING clavulanic acid Allergy Intermediate HIVES/FACIAL Verified 10/04/19 00:36 SWELLING lisinopril Allergy Intermediate HIVES Verified 10/04/19 00:36 acetaminophen AdvReac Mild NAUSEA Verified 10/04/19 00:36 albuterol AdvReac Mild proair Verified 10/04/19 00:36 "trouble taking breaths" Home Medications Home Medications Medication Instructions Recorded Confirmed Type aspirin 81 mg tablet,delayed 81 mg PO QAM 09/17/18 10/04/19 History release OneTouch Delica Plus Lancet 30 #400 ea NS 12/23/18 10/03/19 Rx gauge OneTouch Verio test strips #400 ea NS 12/23/18 10/03/19 Rx nitroglycerin [Nitrostat] 0.4 mg SUBLINGUAL UD PRN 04/24/19 10/04/19 History Oxygen Home #1 ea 05/19/19 10/03/19 Rx torsemide 40 mg PO BID #120 tab 08/30/19 10/04/19 Rx Breo Ellipta 1 inh INHALATION QAM 09/21/19 10/04/19 History budesonide 0.25 mg INHALATION Q12 09/21/19 10/04/19 History gabapentin 300 mg PO DAILY #30 cap 09/23/19 10/04/19 Rx cholecalciferol (vitamin D3) 50 mcg PO BID 10/04/19 10/04/19 History [Vitamin D3] esomeprazole magnesium 20 mg PO BID 10/04/19 10/04/19 History isosorbide mononitrate 30 mg PO DAILY 10/04/19 10/04/19 History potassium chloride [Klor-Con M20] 20 meq PO BID 10/04/19 10/04/19 History spironolactone 50 mg PO QAM 10/04/19 10/04/19 History Past Med/Surg History Medical History Chronic respiratory failure 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 Underwent procedure without any complications monitored over night and discharged home. Obstructive sleep apnea SOB (shortness of breath) Umbilical hernia Vitamin D insufficiency Previously deficient, taking Vit D supplementation Surgical History History of carpal tunnel surgery History of cholecystectomy S/P tonsillectomy Family History Father , age 57 of an ND. Heart disease Myocardial infarction Mother , age 67 of a ruptured neck vessel Sudden Other Depression Lung disease No pertinent family history Denies family history of Ovarian cancer Prostate cancer Breast cancer Colorectal cancer Social History Smoking Status: Never smoker Age Started Using Tobacco: 14; Age Quit Using Tobacco: 18; Cigarettes Per Day: 40-50; Second Hand Exposure: No; Hx Alcohol Use: No Hx Substance Use: No Preferred Language: Cymraes Communication Ability: Effective Visual Impairment: No Limitations Hearing Ability: Normal Auto Wheel Alignment Specialist Required: No Beliefs That Will Affect Care: None marital status: Current Living Situation: Spouse current occupational status: unemployed How many Children do You have: 0 Feels Safe at Home: Yes Safety Concerns: Feels Safe At This Time Childhood Exposure to Second-Hand Smoke: Yes Dental Care, Regularly: Yes Physical Activity Frequency: Does not Exercise Review of Systems Review of Systems: The patient denies palpitations, sore throat, fevers, chills, sweats, nausea, vomiting, diarrhea , constipation, abdominal pain, pelvic pain, blood in urine or stool, dysuria, urinary frequency or urgency, lightheadedness, dizziness, headache, rash, abnormal bruising or bleeding, imbalance, focal or generalized weakness, numbness or tingling in arms or legs, generalized arthralgias or myalgias, back or neck pain, or night sweats. The review of systems is otherwise negative other than for that already noted above, and at least 10 systems have been reviewed. Physical Exam Physical Exam: The patient is awake, alert and oriented 3, normocephalic and atraumatic, lying in bed and in moderate respiratory distress on BiPAP HEENT--PERRL, EOMI, mucous membranes and oropharynx dry. Neck--supple. No JVD. No bruits. Thyroid normal, trachea midline, no ad enopathy. Heart--normal S1 and S2. No murmurs, rubs or gallops. Lungs--crackles at the bases to fpc up bilaterally. Mild respiratory distress. no accessory muscle use. Abdomen--normal bowel sounds and soft. Nontender. Nondistended. Morbidly obese Extremities--no cyanosis or clubbing. 2+ bilateral pretibial pitting edema Dermatologic--normal skin turgor, normal color, no abnormal lymph nodes, no rash. Neurologic--cranial nerves II through XII grossly intact. Rheumatologic--limited exam due to dyspnea Psychiatric--normal affect. Results & Data Results & Data ([facility]) Vital Signs (Past 12 Hours) Vital Signs Temp Pulse Pulse Resp BP BP Pulse Ox 10/04/19 02:04 106 H 26 H 181/129 H 96 10/04/19 01:55 115 H 26 H 189/151 H 98 10/04/19 01:00 120 H 30 H 194/149 H 10/04/19 00:59 120 H 99 10/04/19 00:39 117 H 29 H 98 10/04/19 00:17 98.6 F 126 H 28 H 203/135 H 93 Laboratory Results Laboratory Results WBC 10.93 K/uL (4.8-10.8) H 10/04/19 03:26 RBC 5.12 M/uL (4.7-6.1) 10/04/19 03:26 Hgb 13.9 g/dL (14.0-18.0) L 10/04/19 03:26 Hct 41.6 % (42-52) L 10/04/19 03:26 MCV 81.3 fL (80-100) 10/04/19 03:26 MCH 27.1 pg (25-34) 10/04/19 03:26 MCHC 33.4 g/dL (32-36) 10/04/19 03:26 RDW Std Deviation 52.6 fL (36.4-46.3) H 10/04/19 03:26 RDW Coeff of Zoltan 17.8 % (11.5-14.5) H 10/04/19 03:26 Plt Count 159 K/uL (130-400) 10/04/19 03:26 MPV 9.7 fL (7.4-10.4) 10/04/19 03:26 Immature Gran % (Auto) 0.4 % 10/04/19 03:26 Neut % (Auto) 78.1 % 10/04/19 03:26 Lymph % (Auto) 16.7 % 10/04/19 03:26 [place] % (Auto) 4.0 % 10/04/19 03:26 Eos % (Auto) 0.7 % 10/04/19 03:26 Baso % (Auto) 0.1 % 10/04/19 03:26 Neut # (Auto) 8.54 K/uL (1.4-6.5) H 10/04/19 03:26 Lymph # (Auto) 1.82 K/uL (1.2-3.4) 10/04/19 03:26 [place] # (Auto) 0.44 K/uL (0.11-0.59) 10/04/19 03:26 Eos # (Auto) 0.08 K/uL (0-0.5) 10/04/19 03:26 Baso # (Auto) 0.01 K/uL (0-0.2) 10/04/19 03:26 Immature Gran # (Auto) 0.04 K/uL (0.00-0.02) H 10/04/19 03:26 PT 10.9 Seconds (9.0-12.0) 10/04/19 03:26 INR 1.0 (0.9-1.1) 10/04/19 03:26 APTT 27.7 Seconds (21.0-31.0) 10/04/19 00:30 PTT Ratio 1.0 10/04/19 00:30 ABG pH 7.37 (7.35-7.45) 10/04/19 00:59 ABG pCO2 41 mmHg (35-46) 10/04/19 00:59 ABG pO2 175 mmHg (80-95) H 10/04/19 00:59 ABG HCO3 23 mmol/L (19-24) 10/04/19 00:59 ABG O2 Saturation 99.3 % (90-95) H 10/04/19 00:59 ABG Base Excess -2.1 mEq/L (-9-1.8) 10/04/19 00:59 Ankur Test POS (Pos) 10/04/19 00:59 Barometric Pressure 730.3 mm/Hg 10/04/19 00:59 Oxygen Given 5L FIO2 40% 10/04/19 00:59 Sodium 142 mmol/L (136-145) 10/04/19 00:30 Potassium 4.1 mmol/L (3.5-5.1) 10/04/19 00:30 Chloride 111 mmol/L (98-107) H 10/04/19 00:30 Carbon Dioxide 25 mmol/L (21-32) 10/04/19 00:30 Anion Gap 6.0 (3-11) 10/04/19 00:30 BUN 16 mg/dl (7-18) 10/04/19 00:30 Creatinine 1.54 mg/dl (0.6-1.4) H 10/04/19 00:30 Est Cr Clr Drug Dosing 94.3 ml/min 10/04/19 00:30 Est GFR ( Amer) 63.6 10/04/19 00:30 Est GFR (Non-Af Amer) 54.8 10/04/19 00:30 BUN/Creatinine Ratio 10.5 (10-20) 10/04/19 00:30 Glucose 162 mg/dl (70-99) H 10/04/19 00:30 Calcium 8.8 mg/dl (8.5-10.1) 10/04/19 00:30 Magnesium 1.8 mg/dl (1.8-2.4) 10/04/19 00:30 Total Bilirubin 0.6 mg/dl (0.2-1) 10/04/19 00:30 AST 22 U/L (15-37) 10/04/19 00:30 ALT 27 U/L (12-78) 10/04/19 00:30 Alkaline Phosphatase 93 U/L (45-117) 10/04/19 00:30 Troponin I 0.016 ng/ml (0-0.045) 10/04/19 00:30 NT-Pro-B Natriuret Pep 5851 pg/ml (0-450) H 10/04/19 00:30 Total Protein 7.5 gm/dl (6.4-8.2) 10/04/19 00:30 Albumin 3.2 gm/dl (3.4-5.0) L 10/04/19 00:30 Globulin 4.3 gm/dl (2.5-4.0) H 10/04/19 00:30 Albumin/Globulin Ratio 0.7 (0.9-2) L 10/04/19 00:30 Lipase 159 U/L (73-393) 10/04/19 00:30 Code Status & VTE Plan Code Status Full code VTE Prophylaxis Plan VTE Prophylaxis will be ordered: Yes PG Care Time/CCT Total # of Minutes Spent Total Time Spent with Patient: Total time spent is greater than 50% in coordination of care (as documented) at patient's floor/unit and/or counseling patient: Coding Level of Care Code 56106 Initial Inpt Care Lvl 3 Diagnoses Acute on chronic HFrEF (heart failure with reduced ejection fraction) I50.23 Hypertension I10 Hypertension type: unspecified AICD (automatic cardioverter/defibrillator) present Z95.810 NICM (nonischemic cardiomyopathy) I42.8 Hypertensive urgency I16.0 Diabetes mellitus type 2 with complications E11.8 (1) Hypertension Hypertension type: unspecified Qualified Code(s): I10 - Essential (primary) hypertension
[2019-10-04] MEDS ORDERED: GLUCOSE 40% GEL 15 GM TUBE PO PRN (02:58)
[2019-10-04] MEDS ORDERED: ONDANSETRON INJ 2 MG/ML 2 ML VIAL IV PRN (02:58)
[2019-10-04] MEDS ORDERED: ACETAMINOPHEN 325 MG TAB PO PRN (02:58)
[2019-10-04] MEDS ORDERED: GLUCAGON FOR INJ 1 MG VIAL SQ PRN (02:58)
[2019-10-04] MEDS ORDERED: CARBOHYDRATES FOR HYPOGLYCEMIA PO PRN (02:58)
[2019-10-04] MEDS ORDERED: GLUCOSE 10 TABS/TUBE PO PRN (02:58)
[2019-10-04] MEDS ORDERED: DEXTROSE 50% 50 ML SYRINGE IV PRN (02:58)
[2019-10-04] MEDS ORDERED: MAGNESIUM HYDROXIDE SUSP 30 ML UDC PO PRN (02:58)
[2019-10-04] MEDS ORDERED: FUROSEMIDE 100 MG in DEXTROSE 5% 90 ML IV SCH (03:00)
[2019-10-04 03:47] LABS: Basophils # (auto) 0.01 K/uL (0-0.2); Basophils % (auto) 0.1 %; Eosinophils # (auto) 0.08 K/uL (0-0.5); Eosinophils % (auto) 0.7 %; Hematocrit (blood only) 41.6 % (42-52); Hemoglobin 13.9 g/dL (14.0-18.0); Immature Granulocytes # (auto) 0.04 K/uL (0.00-0.02); Immature Granulocytes % (auto) 0.4 %; Lymphocytes # (auto) 1.82 K/uL (1.2-3.4); Lymphocytes % (auto) 16.7 %; Mean Corpuscular Hemoglobin 27.1 pg (25-34); Mean Corpuscular Hgb Conc 33.4 g/dL (32-36); Mean Corpuscular Volume 81.3 fL (80-100); Mean Platelet Volume 9.7 fL (7.4-10.4); Monocytes # (auto) 0.44 K/uL (0.11-0.59); Neutrophils # (auto) 8.54 K/uL (1.4-6.5); Neutrophils % (auto) 78.1 %; Platelet Count 159 K/uL (130-400); RDW Coefficient of Variation 17.8 % (11.5-14.5); RDW Standard Deviation 52.6 fL (36.4-46.3); Red Blood Count 5.12 M/uL (4.7-6.1); White Blood Count 10.93 K/uL (4.8-10.8)
[2019-10-04] MEDS ORDERED: METOPROLOL TARTRATE 1 MG/ML VIAL IV PRN (03:58)
[2019-10-04 03:59] LABS: Prothrombin Time 10.9 Seconds (9.0-12.0)
[2019-10-04 04:10] LABS: Albumin Level 3.2 gm/dl (3.4-5.0); BUN Creatinine Ratio 11.6 (10-20); Calcium 8.7 mg/dl (8.5-10.1); Creatinine Clr Calc Pharmacy 98.9 ml/min; Est GFR (African American) 67.8; Est GFR (Non-African American) 58.5; Potassium 3.9 mmol/L (3.5-5.1)
[2019-10-04 04:12] LABS: Albumin Globulin Ratio 0.7 (0.9-2); Bilirubin,Total 0.6 mg/dl (0.2-1); Globulin 4.4 gm/dl (2.5-4.0); Total Protein 7.6 gm/dl (6.4-8.2)
[2019-10-04] MEDS: NITROGLYCERIN 2% OINTMENT 30GM TUBE EXT SCH ×4 (06:16→23:51)
[2019-10-04] MEDS: HEPARIN SOD 5,000 UNIT/0.5 ML VIAL SQ SCH ×3 (06:16→21:18)
[2019-10-04] MEDS ORDERED: LABETALOL HCL IV 5 MG/ML 20ML IV ONE (07:31)
[2019-10-04] MEDS ORDERED: LABETALOL HCL IV 5 MG/ML 20ML IV STA (07:31)
[2019-10-04 08:09] LABS: Basophils # (auto) 0.01 K/uL (0-0.2); Basophils % (auto) 0.1 %; Eosinophils # (auto) 0.09 K/uL (0-0.5); Eosinophils % (auto) 0.8 %; Hematocrit (blood only) 42.2 % (42-52); Immature Granulocytes # (auto) 0.03 K/uL (0.00-0.02); Immature Granulocytes % (auto) 0.3 %; Lymphocytes # (auto) 1.86 K/uL (1.2-3.4); Lymphocytes % (auto) 16.8 %; Mean Corpuscular Hemoglobin 26.9 pg (25-34); Mean Corpuscular Volume 81.2 fL (80-100); Mean Platelet Volume 9.9 fL (7.4-10.4); Monocytes # (auto) 0.81 K/uL (0.11-0.59); Monocytes % (auto) 7.3 %; Neutrophils # (auto) 8.26 K/uL (1.4-6.5); Neutrophils % (auto) 74.7 %; Platelet Count 175 K/uL (130-400); RDW Coefficient of Variation 17.7 % (11.5-14.5); RDW Standard Deviation 52.6 fL (36.4-46.3); White Blood Count 11.06 K/uL (4.8-10.8)
[2019-10-04 08:15] LABS: Mean Corpuscular Hgb Conc 33.2 g/dL (32-36)
[2019-10-04 08:24] LABS: Alanine Aminotransferase 23 U/L (12-78); Albumin Level 3.4 gm/dl (3.4-5.0); Aspartate Aminotransferase 17 U/L (15-37); BUN Creatinine Ratio 12.9 (10-20); Blood Urea Nitrogen 18 mg/dl (7-18); Calcium 8.5 mg/dl (8.5-10.1); Carbon Dioxide 23 mmol/L (21-32); Chloride 108 mmol/L (98-107); Creatinine Clr Calc Pharmacy 106.2 ml/min; Est GFR (African American) 73.9; Est GFR (Non-African American) 63.7; Glucose 181 mg/dl (70-99); Potassium 4.1 mmol/L (3.5-5.1); Sodium 139 mmol/L (136-145)
[2019-10-04 08:29] LABS: Albumin Globulin Ratio 0.8 (0.9-2); Alkaline Phosphatase 95 U/L (45-117); Bilirubin,Total 0.7 mg/dl (0.2-1); Globulin 4.4 gm/dl (2.5-4.0); Total Protein 7.9 gm/dl (6.4-8.2); Troponin I < 0.015 ng/ml (0-0.045)
--- NOTE | 2019-10-04 08:40 | XRay Report ---
XR chest 1V portable CLINICAL HISTORY: Chest pain. COMPARISON STUDY: Chest CT August 28, 2019. Chest radiograph September 21, 2019. FINDINGS: A single lead left subclavian pacer is in place. Moderate cardiomegaly is unchanged. Persis tent interstitial thickening is noted. No lobar consolidation is present. No pneumothorax is identifi ed. There is no definite pleural effusion. IMPRESSION: Findings consistent with pulmonary edema, similar to prior exam. Stable cardiomegaly. ACT 112: Negative or not required by law. Electronically signed by: Eyad Rosario M.D. 10/04/2019 8:39 AM
[2019-10-04] MEDS: INSULIN ASPART 100 UNITS/ML 3 ML PEN SC SCH ×4 (08:43→21:17)
[2019-10-04] MEDS: ISOSORBIDE MONO EXTENDED REL 30 MG TABCR PO SCH (08:44)
[2019-10-04] MEDS ORDERED: METOPROLOL SUCC 50MG EXT REL TAB PO STA (11:42)
--- NOTE | 2019-10-04 11:56 | Cardiology Consultation ---
Date of Consultation October 04, 2019 Assessment & Plan (1) Acute on chronic heart failure with reduced ejection fraction and diastolic dysfunction: (2) Noncompliance: (3) Hypertensive urgency: (4) NICM (nonischemic cardiomyopathy): (5) Obstructive sleep apnea: 43 male mated with acute on chronic respiratory insufficiency secondary to decompensated heart failure with reduced ejection fraction. Clinically improving with afterload reduction (topical nitrates), and IV diuretic therapy. During past admissions, patient has responded well with intermittent IV diuretic therapy. I will discontinue intravenous Lasix infusion currently and continue IV Lasix 60 mg every 12 hours. Follow daily weight, GFR, electrolytes, and fluid balance. Restart Entresto, Aldactone, and Toprol-XL at outpatient doses. Outpatient torsemide 80 mg twice daily, will remain on hold while receiving intravenous diuretic therapy. Monitor telemetry due to history of nonsustained ventricular tachycardia. Patient reports episodes of syncope which is longstanding. Per recent interrogations, no sustained dysrhythmias or ICD therapies. I will obtain a repeat ICD interrogation during hospitalization. Thank you for allowing to participate in care of your patient I will continue to follow during hospitalization. History of Present Illness Reason for Consultation: Respiratory insufficiency, acute decompensated heart failure Requesting Physician: Dr. Jaquez Attending Physician: Trey Menendez DO History of Present Illness 43-year-old patient presented to the emergency department with respiratory distress. He is well-known to the cardiology service due to his history of nonischemic cardiomyopathy, recurrent heart failure, nonsustained ventricular tachycardia status post ICD, and noncompliance. Patient treated with IV Lasix and BiPAP in the ER. An intravenous Lasix infusion initiated at 10 mg/h. 30 pound weight gain noted since most recent hospitalization. Patient denies any noncompliance. Feeling better with diuretic therapy. Hypertension slowly improving. Currently off BiPAP without conversational dyspnea. No dysrhythmias on telemetry. Offers no other concerns/complaints this time. Allergies Allergy/AdvReac Type Severity Reaction Status Date / Time ceftriaxone Allergy Severe SHORTNESS Verified 10/04/19 00:36 OF BREATH lidocaine Allergy Severe SHORTNESS Verified 10/04/19 00:36 OF BREATH, diaphoretic, hives procaine Allergy Severe SHORTNESS Verified 10/04/19 00:36 OF BREATH, diaphoretic, hives amoxicillin Allergy Intermediate HIVES/FACIAL Verified 10/04/19 00:36 SWELLING clavulanic acid Allergy Intermediate HIVES/FACIAL Verified 10/04/19 00:36 SWELLING lisinopril Allergy Intermediate HIVES Verified 10/04/19 00:36 acetaminophen AdvReac Mild NAUSEA Verified 10/04/19 00:36 albuterol AdvReac Mild proair Verified 10/04/19 00:36 "trouble taking breaths" Home Medications Home Medications Medication Instructions Recorded Confirmed Type aspirin 81 mg tablet,delayed 81 mg PO QAM 09/17/18 10/04/19 History release OneTouch Delica Plus Lancet 30 #400 ea NS 12/23/18 10/03/19 Rx gauge OneTouch Verio test strips #400 ea NS 12/23/18 10/03/19 Rx nitroglycerin [Nitrostat] 0.4 mg SUBLINGUAL UD PRN 04/24/19 10/04/19 History Oxygen Home #1 ea 05/19/19 10/03/19 Rx torsemide 40 mg PO BID #120 tab 08/30/19 10/04/19 Rx Breo Ellipta 1 inh INHALATION QAM 09/21/19 10/04/19 History budesonide 0.25 mg INHALATION Q12 09/21/19 10/04/19 History gabapentin 300 mg PO DAILY #30 cap 09/23/19 10/04/19 Rx cholecalciferol (vitamin D3) 50 mcg PO BID 10/04/19 10/04/19 History [Vitamin D3] esomeprazole magnesium 20 mg PO BID 10/04/19 10/04/19 History isosorbide mononitrate 30 mg PO DAILY 10/04/19 10/04/19 History potassium chloride [Klor-Con M20] 20 meq PO BID 10/04/19 10/04/19 History spironolactone 50 mg PO QAM 10/04/19 10/04/19 History Patient History Medical History Chronic respiratory failure 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 Underwent procedure without any complications monitored over night and discharged home. Obstructive sleep apnea SOB (shortness of breath) Umbilical hernia Vitamin D insufficiency Previously deficient, taking Vit D supplementation Surgical History History of carpal tunnel surgery History of cholecystectomy S/P tonsillectomy Family History Father , age 57 of an [place]. Heart disease Myocardial infarction Mother , age 67 of a ruptured neck vessel Sudden Other Depression Lung disease No pertinent family history Denies family history of Ovarian cancer Prostate cancer Breast cancer Colorectal cancer Social History Smoking Status: Never smoker Age Started Using Tobacco: 14; Age Quit Using Tobacco: 18; Cigarettes Per Day: 40-50; Second Hand Exposure: No; Hx Alcohol Use: No Hx Substance Use: No Preferred Language: Norwegian Communication Ability: Effective Visual Impairment: No Limitations Hearing Ability: Normal Infrastructure Manager Required: No Beliefs That Will Affect Care: None marital status: Current Living Situation: Spouse current occupational status: unemployed How many Children do You have: 0 Feels Safe at Home: Yes Safety Concerns: Feels Safe At This Time Childhood Exposure to Second-Hand Smoke: Yes Dental Care, Regularly: Yes Physical Activity Frequency: Does not Exercise Review of Systems Review of Systems: All systems reviewed & are unremarkable except as noted in HPI & below Physical Exam Constitutional: well developed, well nourished and + morbidly obese Respiratory: normal respiratory effort; no respiratory distress Auscultation: + diminished lung sounds (Bilateral) and + wheezes (Mild end expiratory wheeze); no crackles, no rales and no rhonchi Cardiovascular: Rate/Rhythm: regular rate and regular rhythm Heart Sounds: normal S1 and normal S2; no murmur Vessels: + JVD; no carotid bruit Extremities: + edema (2+ bilateral pretibial) Gastrointestinal (Abdomen): Inspection/Auscultation: abdomen normal to inspection and normal bowel sounds; abdomen not distended Percussion/Palpation: abdomen soft; abdomen nontender, no guarding and abdomen not rigid Musculoskeletal: Head/Neck/Chest: normocephalic and head atraumatic Extremities: normal strength, normal muscle tone and no cyanosis Skin: no rashes, warm and dry Neurologic: CN's II-XI intact bilaterally and moves all extremities; no focal motor deficits Speech / Cognition: normal speech Motor/Sensory: no tremor Psychiatric: A+Ox3, euthymic affect Results & Data ([facility]) Vital Signs (Past 12 Hours) Vital Signs Temp Pulse Pulse Resp BP BP BP 10/04/19 11:07 36.5 C 95 H 22 150/106 H 10/04/19 09:42 78 10/04/19 07:22 109 H 24 184/138 H 10/04/19 04:41 36.6 C 86 22 187/134 H 10/04/19 02:55 36.5 C 117 H 24 211/63 H 10/04/19 02:54 117 H 35 H 10/04/19 02:04 106 H 26 H 181/129 H 10/04/19 01:55 115 H 26 H 189/151 H 10/04/19 01:00 120 H 30 H 194/149 H 10/04/19 00:59 120 H 10/04/19 00:39 117 H 29 H 10/04/19 00:17 37 C 126 H 28 H 203/135 H Pulse Ox 10/04/19 11:07 93 10/04/19 09:42 10/04/19 07:22 98 10/04/19 04:41 94 10/04/19 02:55 96 10/04/19 02:54 99 10/04/19 02:04 96 10/04/19 01:55 98 10/04/19 01:00 10/04/19 00:59 99 10/04/19 00:39 98 10/04/19 00:17 93
[2019-10-04] MEDS: SACUBITRIL-VALSARTAN 97-103 MG TAB PO SCH ×2 (12:20→21:17)
[2019-10-04] MEDS: FUROSEMIDE 60 MG in SYRINGE 0 ML IV SCH (16:53)
[2019-10-04] MEDS: METOPROLOL SUCC 50MG EXT REL TAB PO SCH (21:17)
[2019-10-05] MEDS: NITROGLYCERIN 2% OINTMENT 30GM TUBE EXT SCH ×5 (06:00→23:51)
[2019-10-05] MEDS: HEPARIN SOD 5,000 UNIT/0.5 ML VIAL SQ SCH ×3 (06:00→21:27)
[2019-10-05 06:36] LABS: Basophils # (auto) 0.01 K/uL (0-0.2); Basophils % (auto) 0.1 %; Eosinophils # (auto) 0.12 K/uL (0-0.5); Eosinophils % (auto) 1.6 %; Hematocrit (blood only) 45.6 % (42-52); Hemoglobin 14.7 g/dL (14.0-18.0); Immature Granulocytes # (auto) 0.02 K/uL (0.00-0.02); Immature Granulocytes % (auto) 0.3 %; Lymphocytes # (auto) 2.08 K/uL (1.2-3.4); Lymphocytes % (auto) 27.2 %; Mean Corpuscular Hemoglobin 26.6 pg (25-34); Mean Corpuscular Hgb Conc 32.2 g/dL (32-36); Mean Corpuscular Volume 82.6 fL (80-100); Mean Platelet Volume 10.3 fL (7.4-10.4); Monocytes # (auto) 0.59 K/uL (0.11-0.59); Monocytes % (auto) 7.7 %; Neutrophils # (auto) 4.82 K/uL (1.4-6.5); Neutrophils % (auto) 63.1 %; Platelet Count 179 K/uL (130-400); RDW Coefficient of Variation 17.4 % (11.5-14.5); RDW Standard Deviation 52.4 fL (36.4-46.3); Red Blood Count 5.52 M/uL (4.7-6.1); White Blood Count 7.64 K/uL (4.8-10.8)
[2019-10-05 06:47] LABS: Partial Thromboplastin Time 29.1 Seconds (21.0-31.0)
[2019-10-05 07:20] LABS: Albumin Globulin Ratio 0.7 (0.9-2); Albumin Level 3.2 gm/dl (3.4-5.0); Bilirubin,Total 1.2 mg/dl (0.2-1); Calcium 8.5 mg/dl (8.5-10.1); Est GFR (African American) 121.7; Globulin 4.4 gm/dl (2.5-4.0); Magnesium 1.8 mg/dl (1.8-2.4); Potassium 3.3 mmol/L (3.5-5.1); Total Protein 7.6 gm/dl (6.4-8.2)
[2019-10-05] MEDS: METOPROLOL SUCC 50MG EXT REL TAB PO SCH ×2 (08:57→21:28)
[2019-10-05] MEDS: ISOSORBIDE MONO EXTENDED REL 30 MG TABCR PO SCH (08:57)
[2019-10-05] MEDS: SPIRONOLACTONE 25 MG TAB PO SCH ×2 (08:57→21:28)
[2019-10-05] MEDS: FUROSEMIDE 60 MG in SYRINGE 0 ML IV SCH ×2 (08:57→16:58)
[2019-10-05] MEDS: INSULIN ASPART 100 UNITS/ML 3 ML PEN SC SCH ×4 (08:58→21:27)
[2019-10-05] MEDS: SACUBITRIL-VALSARTAN 97-103 MG TAB PO SCH ×2 (09:01→21:29)
[2019-10-05] MEDS: POTASSIUM CHLORIDE 20 MEQ TABCR PO SCH ×3 (10:00→21:29)
--- NOTE | 2019-10-05 10:38 | Cardiology Progress Note ---
Date of Service October 05, 2019 Assessment & Plan (1) Acute on chronic heart failure with reduced ejection fraction and diastolic dysfunction: (2) Noncompliance: (3) Hypertensive urgency: (4) NICM (nonischemic cardiomyopathy): (5) Obstructive sleep apnea: 43 male mated with acute on chronic respiratory insufficiency secondary to decompensated heart failure with reduced ejection fraction most likely secondary to noncompliance. Continue Lasix 60 mg IV twice daily. Titrate Aldactone to 50 mg in a.m., 25 mg in the evening (outpatient dose). Continue topical nitrates, Toprol-XL, and Entresto. Follow daily weight, fluid balance, GFR, and electrolytes. Monitor telemetry due to history of nonsustained ventricular tachycardia. Patient reports episodes of syncope which is longstanding. Per recent interrogations, no sustained dysrhythmias or ICD therapies. Repeat ICD interro gation pending. Admission and Anticipated Discharge Date Admission Date: October 04, 2019 Subjective Patient seen and examined the bedside. Fluid balance -6.6 L over the past 24 hours. Intravenous Lasix infusion discontinued in favor of Lasix 60 mg IV twice daily. Mild hypokalemia noted this morning. Entresto, Toprol-XL, and Aldactone restarted yesterday. Patient improving clinically. Edema less prominent. Denies orthopnea or PND. Review of Systems Review of Systems: All systems reviewed & are unremarkable except as noted in HPI & below Physical Exam Constitutional: well developed, well nourished and + morbidly obese Respiratory: normal respiratory effort; no respiratory distress Auscultation: + diminished lung sounds (Bilateral); no crackles, no rales, no rhonchi and no wheezes (Mild end expiratory wheeze) Cardiovascular: Rate/Rhythm: regular rate and regular rhythm Heart Sounds: normal S1 and normal S2; no murmur Vessels: + JVD; no carotid bruit Extremities: + edema (2+ bilateral pretibial) Gastrointestinal (Abdomen): Inspection/Auscultation: abdomen normal to inspection and normal bowel sounds; abdomen not distended Percussion/Palpation: abdomen soft; abdomen nontender, no guarding and abdomen not rigid Musculoskeletal: Head/Neck/Chest: normocephalic and head atraumatic Extremities: normal strength, normal muscle tone and no cyanosis Skin: no rashes, warm and dry Neurologic: CN's II-XI intact bilaterally and moves all extremities; no focal motor deficits Speech / Cognition: normal speech Motor/Sensory: no tremor Psychiatric: A+Ox3, euthymic affect Results & Data ([facility]) Vital Signs (Past 12 Hours) Vital Signs Temp Pulse Pulse Resp BP Pulse Ox 10/05/19 07:33 36.4 C L 70 18 141/92 H 99 10/05/19 03:18 68 18 94 10/05/19 03:02 37.0 C 76 22 132/93 93 10/04/19 23:52 36.8 C 79 23 148/98 H 97 10/04/19 23:38 84 18 94
--- NOTE | 2019-10-05 16:47 | Hospitalist Progress Note ---
Date of Service October 05, 2019 Assessment & Plan (1) Acute on chronic HFrEF (heart failure with reduced ejection fraction): responding incredibly well to Lasix 60mg IV BID negative 8 liters, down nearly 20lbs appreciate cardiology input resumed his Entresto, Aldactone, Toprol, Imdur Cr and electrolytes are stable breathing easier on 5L NC which is his baseline keep in hospital for diuresis to approach his baseline weight (2) Hypertension: BP was elevated yesterday much better today back on Toprol, Aldactone, Entresto continue Imdur (3) AICD (automatic cardioverter/defibrillator) present: pacer interrogated, no issues (4) NICM (nonischemic cardiomyopathy): continue Toprol, Entresto, Aldactone Lasix 60 IV BID (5) Hypertensive urgency: treated yesterday with Labetalol BP now better on his Toprol, Imdur, aldactone, Entresto (6) Diabetes mellitus type 2 with complications: Place on Accu-Cheks before meals and at bedtime with NovoLog coverage per scale monitor for hypoglycemia, no episodes (7) Poor intravenous access: patient interested in getting a port placed discussed with him that really this would be up to a surgeon if they feel it is appropriate he has peripheral IV in right UE, working fine would recommend referral to surgeon outpatient to consider if he persists on wanting it done this admission would recommend asking surgeon to see here, but this is not urgent issue Admission and Anticipated Discharge Date Admission Date: October 04, 2019 Subjective patient doing well today, breathing easy after so much diuresis eating very well, following fluid restriction no chest pain he asks if he can get a port placed while he is here, he says he has difficult IV access and difficulty with blood draws I explained that I am unsure that there is an indication for a port currently he is admitted for acute heart failure so would be hesitant to take to the OR likely the best option would be outpatient refer to surgery when he is stable medically discussed with Dr. Hernandez, appreciate his help in managing patient Review of Systems 2 Review of Systems: All systems reviewed & are unremarkable except as noted in Subjective Respiratory: no cough, no dyspnea and no dyspnea on exertion Cardiovascular: + edema; no chest pain Physical Exam Constitutional: well developed, + morbidly obese and + edematous; no acute distress Eyes: PERRL, conjunctivae normal, anicteric sclerae ENMT: external ear and nose normal, oropharynx normal Neck: trachea midline, no thyromegaly Respiratory: normal respiratory effort, lungs clear to auscultation Cardiovascular: RRR, no murmur, no edema Gastrointestinal (Abdomen): normal bowel sounds, soft, nontender, no hepatosplenomegaly Musculoskeletal: no cyanosis or clubbing, extremities motor strength 5/5 Skin: no rashes, warm and dry Neurologic: patellar DTR's 2+ bilat, sensation intact and PERRL, EOMI, accommodation nl, no face palsy, no dysarthria Psychiatric: A+Ox3, euthymic affect Estimated Intelligence: + below average estimated intelligence Lymphatic: no cervical or axillary lymphadenopathy Results & Data Results & Data ([facility]) Vital Signs (Past 12 Hours) Vital Signs Temp Pulse Resp BP Pulse Ox 10/05/19 12:09 36.7 C 80 20 157/109 H 97 10/05/19 07:33 36.4 C L 70 18 141/92 H 99 Laboratory Results Laboratory Results - last 24 hr 10/04/19 10/04/19 10/05/19 19:07 20:41 05:38 WBC 7.64 RBC 5.52 Hgb 14.7 Hct 45.6 MCV 82.6 MCH 26.6 MCHC 32.2 RDW Std Deviation 52.4 H RDW Coeff of Zoltan 17.4 H Plt Count 179 MPV 10.3 Immature Gran % (Auto) 0.3 Neut % (Auto) 63.1 Lymph % (Auto) 27.2 Mower % (Auto) 7.7 Eos % (Auto) 1.6 Baso % (Auto) 0.1 Neut # (Auto) 4.82 Lymph # (Auto) 2.08 Mower # (Auto) 0.59 Eos # (Auto) 0.12 Baso # (Auto) 0.01 Immature Gran # (Auto) 0.02 PT INR APTT PTT Ratio Sodium Potassium Chloride Carbon Dioxide Anion Gap BUN Creatinine Est Cr Clr Drug Dosing Est GFR ( Amer) Est GFR (Non-Af Amer) BUN/Creatinine Ratio Glucose POC Glucose 140 H Calcium Magnesium Total Bilirubin AST ALT Alkaline Phosphatase Troponin I < 0.015 Total Protein Albumin Globulin Albumin/Globulin Ratio 08/23/20 08/23/20 08/23/20 05:38 05:38 11:36 WBC RBC Hgb Hct MCV MCH MCHC RDW Std Deviation RDW Coeff of Zoltan Plt Count MPV Immature Gran % (Auto) Neut % (Auto) Lymph % (Auto) Mower % (Auto) Eos % (Auto) Baso % (Auto) Neut # (Auto) Lymph # (Auto) Mower # (Auto) Eos # (Auto) Baso # (Auto) Immature Gran # (Auto) PT 11.0 INR 1.0 APTT 29.1 PTT Ratio 1.0 Sodium 137 Potassium 3.3 L D Chloride 104 Carbon Dioxide 29 Anion Gap 4.0 BUN 13 Creatinine 0.90 D Est Cr Clr Drug Dosing 153.0 Est GFR ( Amer) 121.7 Est GFR (Non-Af Amer) 105.0 BUN/Creatinine Ratio 15.0 Glucose 140 H POC Glucose 161 H Calcium 8.5 Magnesium 1.8 Total Bilirubin 1.2 H D AST 15 ALT 21 Alkaline Phosphatase 97 Troponin I Total Protein 7.6 Albumin 3.2 L Globulin 4.4 H Albumin/Globulin Ratio 0.7 L 10/05/19 16:13 WBC RBC Hgb Hct MCV MCH MCHC RDW Std Deviation RDW Coeff of Zoltan Plt Count MPV Immature Gran % (Auto) Neut % (Auto) Lymph % (Auto) Mower % (Auto) Eos % (Auto) Baso % (Auto) Neut # (Auto) Lymph # (Auto) Mower # (Auto) Eos # (Auto) Baso # (Auto) Immature Gran # (Auto) PT INR APTT PTT Ratio Sodium Potassium Chloride Carbon Dioxide Anion Gap BUN Creatinine Est Cr Clr Drug Dosing Est GFR ( Amer) Est GFR (Non-Af Amer) BUN/Creatinine Ratio Glucose POC Glucose 182 H Calcium Magnesium Total Bilirubin AST ALT Alkaline Phosphatase Troponin I Total Protein Albumin Globulin Albumin/Globulin Ratio Medications Administered Current Inpatient Medications Acetaminophen (Acetaminophen 325 Mg Tab) 650 mg PO Q4H PRN PRN Reason: Pain or Fever Stop: 11/03/19 02:57 Dextrose (Dextrose 50% 50 Ml Syringe) 25 - 50 ml IV UD PRN; Protocol PRN Reason: Hypoglycemia Protocol Stop: 11/03/19 02:57 Glucagon (Glucagon For Inj 1 Mg Vial) 1 mg SQ UD PRN; Protocol PRN Reason: Hypoglycemia Protocol Stop: 11/03/19 02:57 Glucose (Glucose 10 Tabs/Tube) 4 - 8 tabs PO UD PRN; Protocol PRN Reason: Hypoglycemia Protocol Stop: 11/03/19 02:57 Glucose (Glucose 40% Gel 15 Gm Tube) 15 - 30 gm PO UD PRN; Protocol PRN Reason: Hypoglycemia Protocol Stop: 11/03/19 02:57 Heparin Sodium (Porcine) (Heparin Sod 5,000 Unit/0.5 Ml Vial) 7,500 units SQ Q8 [facility] Stop: 11/03/19 05:59 Last Admin: 10/05/19 14:53 Dose: 7,500 units Documented by: Furosemide 60 mg/ Syringe 6 mls @ 4 mls/min IV BID17 [facility] Stop: 11/03/19 16:59 Last Admin: 10/05/19 08:57 Dose: 4 mls/min Documented by: Insulin Aspart (Insulin Aspart 100 Units/Ml 3 Ml Pen) 0 units SC ACHS [facility] Stop: 11/03/19 07:29 Last Admin: 10/05/19 11:42 Dose: 6 units Documented by: Isosorbide Mononitrate (Isosorbide Mower Extended Rel 30 Mg Tabcr) 30 mg PO DAILY [facility] Stop: 11/03/19 08:59 Last Admin: 10/05/19 08:57 Dose: 30 mg Documented by: Magnesium Hydroxide (Magnesium Hydroxide Susp 30 Ml Udc) 30 ml PO Q12H PRN PRN Reason: Constipation Stop: 11/03/19 02:57 Metoprolol Succinate (Metoprolol Succ 50mg Ext Rel Tab) 100 mg PO BID [facility] Stop: 11/03/19 20:59 Last Admin: 10/05/19 08:57 Dose: 100 mg Documented by: Metoprolol Tartrate (Metoprolol Tartrate 1 Mg/Ml Vial) 5 mg IV Q4 PRN PRN Reason: Blood Pressure - High Stop: 11/03/19 03:59 Last Admin: 10/04/19 04:32 Dose: 5 mg Documented by: Miscellaneous (Carbohydrates For Hypoglycemia ) 15 - 30 gm PO UD PRN PRN Reason: Hypoglycemia Protocol Stop: 11/03/19 02:57 Nitroglycerin (Nitroglycerin 2% Ointment 30gm Tube) 2 inch EXT Q6 [facility] Stop: 11/03/19 05:59 Last Admin: 10/05/19 11:43 Dose: Not Given Documented by: Ondansetron HCl (Ondansetron Inj 2 Mg/Ml 2 Ml Vial) 4 mg IV Q6H PRN PRN Reason: Nausea Stop: 11/03/19 02:57 Potassium Chloride (Potassium Chloride 20 Meq Tabcr) 20 meq PO TID [facility] Stop: 11/04/19 08:59 Last Admin: 10/05/19 14:15 Dose: 20 meq Documented by: Sacubitril/Valsartan (Sacubitril-Valsartan 97-103 Mg Tab) 1 tab PO BID [facility] Stop: 11/03/19 11:44 Last Admin: 10/05/19 09:01 Dose: 1 tab Documented by: Spironolactone (Spironolactone 25 Mg Tab) 50 mg PO QAM [facility] Stop: 11/04/19 08:59 Last Admin: 10/05/19 08:57 Dose: 50 mg Documented by: Spironolactone (Spironolactone 25 Mg Tab) 25 mg PO PM [facility] Stop: 11/04/19 20:59 PG Care Time/CCT Total # of Minutes Spent Total Time Spent with Patient: Total time spent is greater than 50% in coordination of care (as documented) at patient's floor/unit and/or counseling patient: Coding Level of Care Code 73918 Subseq Hosp Care Lvl 3 Diagnoses Acute on chronic HFrEF (heart failure with reduced ejection fraction) I50.23 Hypertension I10 Hypertension type: unspecified AICD (automatic cardioverter/defibrillator) present Z95.810 NICM (nonischemic cardiomyopathy) I42.8 Hypertensive urgency I16.0 Diabetes mellitus type 2 with complications E11.8 Poor intravenous access Z78.9 (1) Hypertension Hypertension type: unspecified Qualified Code(s): I10 - Essential (primary) hypertension
[2019-10-06] MEDS: HEPARIN SOD 5,000 UNIT/0.5 ML VIAL SQ SCH ×4 (05:38→21:49)
[2019-10-06] MEDS: NITROGLYCERIN 2% OINTMENT 30GM TUBE EXT SCH ×4 (05:39→23:53)
[2019-10-06 06:32] LABS: Basophils # (auto) 0.02 K/uL (0-0.2); Basophils % (auto) 0.2 %; Eosinophils # (auto) 0.16 K/uL (0-0.5); Eosinophils % (auto) 1.9 %; Hematocrit (blood only) 47.4 % (42-52); Hemoglobin 15.6 g/dL (14.0-18.0); Immature Granulocytes # (auto) 0.04 K/uL (0.00-0.02); Immature Granulocytes % (auto) 0.5 %; Lymphocytes # (auto) 2.81 K/uL (1.2-3.4); Lymphocytes % (auto) 33.3 %; Mean Corpuscular Hemoglobin 26.7 pg (25-34); Mean Corpuscular Hgb Conc 32.9 g/dL (32-36); Mean Corpuscular Volume 81.2 fL (80-100); Mean Platelet Volume 9.6 fL (7.4-10.4); Monocytes # (auto) 0.72 K/uL (0.11-0.59); Monocytes % (auto) 8.5 %; Neutrophils # (auto) 4.69 K/uL (1.4-6.5); Neutrophils % (auto) 55.6 %; Platelet Count 176 K/uL (130-400); RDW Coefficient of Variation 17.5 % (11.5-14.5); RDW Standard Deviation 51.4 fL (36.4-46.3); Red Blood Count 5.84 M/uL (4.7-6.1); White Blood Count 8.44 K/uL (4.8-10.8)
[2019-10-06 06:42] LABS: Partial Thromboplastin Ratio 0.9; Partial Thromboplastin Time 25.9 Seconds (21.0-31.0); Prothrombin Time 10.9 Seconds (9.0-12.0)
[2019-10-06 06:54] LABS: Albumin Globulin Ratio 0.7 (0.9-2); Albumin Level 3.1 gm/dl (3.4-5.0); BUN Creatinine Ratio 21.8 (10-20); Bilirubin,Total 0.6 mg/dl (0.2-1); Calcium 9.2 mg/dl (8.5-10.1); Creatinine Clr Calc Pharmacy 117.3 ml/min; Est GFR (African American) 86.8; Est GFR (Non-African American) 74.9; Globulin 4.7 gm/dl (2.5-4.0); Potassium 4.1 mmol/L (3.5-5.1); Total Protein 7.8 gm/dl (6.4-8.2)
[2019-10-06] MEDS: INSULIN ASPART 100 UNITS/ML 3 ML PEN SC SCH ×4 (08:25→21:42)
[2019-10-06] MEDS: SPIRONOLACTONE 25 MG TAB PO SCH ×2 (08:26→21:40)
[2019-10-06] MEDS: FUROSEMIDE 60 MG in SYRINGE 0 ML IV SCH ×2 (08:26→17:25)
[2019-10-06] MEDS: ISOSORBIDE MONO EXTENDED REL 30 MG TABCR PO SCH (08:26)
[2019-10-06] MEDS: SACUBITRIL-VALSARTAN 97-103 MG TAB PO SCH ×2 (08:27→21:41)
[2019-10-06] MEDS: POTASSIUM CHLORIDE 20 MEQ TABCR PO SCH ×3 (08:27→21:40)
[2019-10-06] MEDS: METOPROLOL SUCC 50MG EXT REL TAB PO SCH ×2 (08:27→21:45)
--- NOTE | 2019-10-06 08:41 | Electrocardiogram Report ---
Test Reason : Blood Pressure : / mmHG Vent. Rate : 124 BPM Atrial Rate : 124 BPM P-R Int : 148 ms QRS Dur : 102 ms QT Int : 320 ms P-R-T Axes : 031 -41 091 degrees QTc Int : 459 ms Sinus tachycardia with occasional Premature ventricular complexes Left atrial enlargement Left anterior fascicular block Abnormal ECG When compared with ECG of 21-SEP-2019 10:15, Premature ventricular complexes are now Present Otherwise no significant change Confirmed by Martell Flores ([id number]) on 10/06/2019 8:41:11 AM Referred By: REFERRED SELF Confirmed By:Martell Flores
--- NOTE | 2019-10-06 09:00 | Electrocardiogram Report ---
Test Reason : Blood Pressure : / mmHG Vent. Rate : 097 BPM Atrial Rate : 097 BPM P-R Int : 162 ms QRS Dur : 106 ms QT Int : 386 ms P-R-T Axes : 035 -29 082 degrees QTc Int : 490 ms Normal sinus rhythm Left atrial enlargement Abnormal ECG When compared with ECG of 04-OCT-2019 00:17, Premature ventricular complexes are no longer Present Confirmed by Martell Flores ([id number]) on 10/06/2019 9:00:19 AM Referred By: REFERRED SELF Confirmed By:Martell Flores
--- NOTE | 2019-10-06 09:41 | Electrocardiogram Report ---
Test Reason : Blood Pressure : / mmHG Vent. Rate : 064 BPM Atrial Rate : 064 BPM P-R Int : 166 ms QRS Dur : 108 ms QT Int : 452 ms P-R-T Axes : 012 -14 154 degrees QTc Int : 466 ms Normal sinus rhythm Left atrial enlargement Left ventricular hypertrophy with repolarization abnormality Abnormal ECG When compared with ECG of 04-OCT-2019 07:36, Vent. rate has decreased BY 33 BPM No significant change Confirmed by Martell Flores ([id number]) on 10/06/2019 9:41:27 AM Referred By: REFERRED SELF Confirmed By:Martell Flores
--- NOTE | 2019-10-06 10:26 | Electrocardiogram Report ---
Test Reason : Blood Pressure : / mmHG Vent. Rate : 067 BPM Atrial Rate : 067 BPM P-R Int : 158 ms QRS Dur : 104 ms QT Int : 448 ms P-R-T Axes : 014 017 126 degrees QTc Int : 473 ms Normal sinus rhythm Left ventricular hypertrophy with repolarization abnormality Abnormal ECG When compared with ECG of 05-OCT-2019 06:20, No significant change was found Confirmed by Martell Flores ([id number]) on 10/06/2019 10:26:21 AM Referred By: REFERRED SELF Confirmed By:Martell Flores
[2019-10-06 10:43] LABS: iSTAT Arterial Blood Gas HCO3 25 meg/L (19-24); iSTAT Arterial Blood Gas pCO2 40 mmHg (35-46); iSTAT Arterial Blood Gas pO2 130 mmHg (80-95); iSTAT Carbon Dioxide 26 mmol/L (24-31); iSTAT Hematocrit 45 % (42-52); iSTAT Hemoglobin 15.3 g/dl (14.0-18.0); iSTAT Sodium 140 mmol/L (135-144)
--- NOTE | 2019-10-06 15:03 | Cardiology Progress Note ---
Date of Service October 06, 2019 Assessment & Plan (1) Acute on chronic heart failure with reduced ejection fraction and diastolic dysfunction: (2) Noncompliance: (3) Hypertensive urgency: (4) NICM (nonischemic cardiomyopathy): (5) Obstructive sleep apnea: 43 male mated with acute on chronic respiratory insufficiency secondary to decompensated heart failure with reduced ejection fraction most likely secondary to noncompliance. Continue Lasix 60 mg IV twice daily. Titrate Aldactone to 50 mg in a.m., 25 mg in the evening (outpatient dose). Continue topical nitrates, Toprol-XL, and Entresto. Follow daily weight, fluid balance, GFR, and electrolytes. Monitor telemetry due to history of nonsustained ventricular tachycardia. Patient reports episodes of syncope which is longstanding. Per recent interrogations, no sustained dysrhythmias or ICD therapies. Would consider psychiatric evaluation in regards to recurrent noncompliance. Admission and Anticipated Discharge Date Admission Date: October 04, 2019 Subjective Patient seen and examined, chart reviewed. Telemetry reviewed: Normal sinus rhythm without arrhythmia or significant ectopy. Review of Systems Review of Systems: All systems reviewed & are unremarkable except as noted in HPI & below Physical Exam Physical Exam: General: Awake, alert and oriented x 3. No acute distress. HEENT: Normocephalic, atraumatic. Pupils equal, round and reactive to light and accommodation. Extraocular muscles are intact. Anicteric sclera. Moist mucous membranes. Neck: No JVD. No bruit. Cardiovascular: Regular. Positive S-4. Normal S-1 and S-2. No S-3. No murmurs or rubs. Pulmonary: Clear to auscultation B/L. No rales, rhonchi or wheezing Abdomen: Bowel sounds x 4, soft. No rebound, guarding or tenderness. No org anomegaly. Extremities: No clubbing, cyanosis or edema. +2 pedal pulses bilaterally. Skin: Warm and dry. Results & Data ([facility]) Vital Signs (Past 12 Hours) Vital Signs Temp Pulse Pulse Pulse Resp BP Pulse Ox 10/06/19 11:18 36.4 C L 82 20 114/70 99 10/06/19 07:14 36.4 C L 62 18 135/65 98 10/06/19 07:00 73 10/06/19 06:06 76 20 119/79 98 10/06/19 03:45 89 22 97 10/06/19 03:25 36.5 C 72 20 114/70 99
--- NOTE | 2019-10-06 15:44 | Hospitalist Progress Note ---
Date of Service October 06, 2019 Assessment & Plan (1) Acute on chronic HFrEF (heart failure with reduced ejection fraction): Echocardiogram in 03/2019 with LVEF 25-30% with global hypokinesis of the LV With numerous admissions for similar presentation over the last year. Patient has low intelligence and I feel has great difficulty with understanding concepts of low-sodium diet and fluid restriction. Continues to be responding incredibly well to Lasix 60mg IV BID Home diuretic is torsemide 40 mg p.o. twice daily negative 9 liters, weight is down 10 kg since admission appreciate cardiology input -Continue Entresto, Aldactone with increased dose to 20 5 in the evening in addition to 50 in the morning, Toprol, Imdur Cr and electrolytes are stable Is on room air at rest keep in hospital for diuresis to approach his baseline weight-I suggested that he stay in the hospital much longer than his usual 2 days to continue to dry him out. He may have gut wall edema preventing proper absorption although torsemide does seem to be more readily absorbed. Perhaps he should be on 120 mg of p.o. Lasix twice daily upon discharge this time -Continued to educate on the importance of low-sodium diet and fluid restriction -Change diet to low-sodium and put a 1500 mL fluid restriction on it (2) Hypertension: BP controlled -Continue Lasix, Toprol, Aldactone at increased dose, Entresto continue Imdur (3) AICD (automatic cardioverter/defibrillator) present: pacer interrogated, no issues (4) NICM (nonischemic cardiomyopathy): continue Toprol, Entresto, Aldactone Lasix 60 IV BID as above (5) Hypertensive urgency: treated with Labetalol and now resolved Continue meds as above (6) Diabetes mellitus type 2 with complications: Place on Accu-Cheks before meals and at bedtime with NovoLog coverage per scale monitor for hypoglycemia, no episodes (7) Poor intravenous access: patient interested in getting a port placed as he has poor venous access and numerous admissions discussed with him that really this would be up to a surgeon if they feel it is appropriate he has peripheral IV in right UE, working fine -Patient is adamant about wanting it done this admission-we will ask the surgeon to see here, but this is not urgent issue (8) Syncope: History of tussive syncope Was suggested to start on gabapentin for this last admission but it has been held this admission-unclear why? (9) Obstructive sleep apnea: Continue BiPAP at night (10) Chronic respiratory failure: Requires O2 with BiPAP at night (11) DVT prophylaxis: Heparin SQ Disposition-continued stay on PCU Admission and Anticipated Discharge Date Admission Date: October 04, 2019 Subjective Patient reports feeling better. Less short of breath. Is 96% on room air sitting there talking to me. He denies chest pain or nausea. He reports that he has had multiple needle sticks for IV access and due to his frequent hospitalizations for congestive heart failure, wonders if he can have a port placed. He would like to talk to a surgeon about this When I tried to engage him in discussion about how he continues to gain water weight when he returns home, he starts talking about his friends and family and the cookies that he likes to eat. He reports he eats no salt at home, but loves turkey ridley and buys low-sodium turkey ridley and low-sodium turkey lunch meat. He also likes to eat hoagies. Telemetry with sinus bradycardia and normal sinus rhythm with rates in the 50s to 90s, PVCs, PACs Review of Systems Review of Systems: All systems reviewed & are unremarkable except as noted in HPI & below He has had some burning pain in the left lateral leg Physical Exam Constitutional: WD/WN, vitals as above + morbidly obese Eyes: + anicteric sclerae Neck: trachea midline, no thyromegaly Respiratory: normal respiratory effort, lungs clear to auscultation Auscultation: + diminished lung sounds (Throughout due to body habitus) Cardiovascular: RRR, no murmur, no edema Chest (Breasts): Chest: normal inspection of chest Gastrointestinal (Abdomen): Inspection/Auscultation: normal bowel sounds; abdomen not distended Percussion/Palpation: abdomen soft (Obese); abdomen nontender Musculoskeletal: Extremities: extremities normal to inspection; no cyanosis and no clubbing Skin: + lesion (Multiple scabs on arms and legs) Neurologic: moves all extremities and awake; no focal motor deficits Psychiatric: A+Ox3, euthymic affect Lymphatic: no lymphedema Results & Data Results & Data ([facility]) Vital Signs (Past 12 Hours) Vital Signs Temp Pulse Pulse Pulse Resp BP Pulse Ox 10/06/19 11:18 36.4 C L 82 20 114/70 99 10/06/19 07:14 36.4 C L 62 18 135/65 98 10/06/19 07:00 73 10/06/19 06:06 76 20 119/79 98 10/06/19 03:45 89 22 97 Laboratory Results 10/06/19 10/06/19 10/06/19 Range/Units 11:21 07:17 06:14 WBC (4.8-10.8) K/uL RBC (4.7-6.1) M/uL Hgb (14.0-18.0) g/dL POC Hgb (14.0-18.0) g/dl Hct (42-52) % POC Hct (42-52) % MCV (80-100) fL MCH (25-34) pg MCHC (32-36) g/dL RDW Std Deviation (36.4-46.3) fL RDW Coeff of Zoltan (11.5-14.5) % Plt Count (130-400) K/uL MPV (7.4-10.4) fL Immature Gran % (Auto) % Neut % (Auto) % Lymph % (Auto) % York % (Auto) % Eos % (Auto) % Baso % (Auto) % Neut # (Auto) (1.4-6.5) K/uL Lymph # (Auto) (1.2-3.4) K/uL York # (Auto) (0.11-0.59) K/uL Eos # (Auto) (0-0.5) K/uL Baso # (Auto) (0-0.2) K/uL Immature Gran # (Auto) (0.00-0.02) K/uL PT (9.0-12.0) Seconds INR (0.9-1.1) APTT (21.0-31.0) Seconds PTT Ratio POC pH (7.35-7.45) POC pCO2 (35-46) mmHg POC pO2 (80-95) mmHg POC HCO3 (19-24) halie/L POC Total CO2 (24-31) mmol/L POC Base Excess (-9-1.8) halie/L POC ABG O2 Sat (90-95) % POC Sodium (135-144) mmol/L Sodium 137 (136-145) mmol/L POC Potassium (3.3-5.0) mmol/L Potassium 4.1 D (3.5-5.1) mmol/L Chloride 103 (98-107) mmol/L Carbon Dioxide 27 (21-32) mmol/L Anion Gap 7.0 (3-11) BUN 26 H D (7-18) mg/dl Creatinine 1.19 (0.6-1.4) mg/dl Est Cr Clr Drug Dosing 117.3 ml/min Est GFR ( Amer) 86.8 Est GFR (Non-Af Amer) 74.9 BUN/Creatinine Ratio 21.8 H (10-20) Glucose 141 H (70-99) mg/dl POC Glucose 123 H 134 H (70-99) mg/dl Calcium 9.2 (8.5-10.1) mg/dl Magnesium 2.0 (1.8-2.4) mg/dl Total Bilirubin 0.6 D (0.2-1) mg/dl AST 15 (15-37) U/L ALT 19 (12-78) U/L Alkaline Phosphatase 94 (45-117) U/L Total Protein 7.8 (6.4-8.2) gm/dl Albumin 3.1 L (3.4-5.0) gm/dl Globulin 4.7 H (2.5-4.0) gm/dl Albumin/Globulin Ratio 0.7 L (0.9-2) 10/06/19 10/06/19 10/05/19 Range/Units 06:14 06:14 16:13 WBC 8.44 (4.8-10.8) K/uL RBC 5.84 (4.7-6.1) M/uL Hgb 15.6 (14.0-18.0) g/dL POC Hgb (14.0-18.0) g/dl Hct 47.4 (42-52) % POC Hct (42-52) % MCV 81.2 (80-100) fL MCH 26.7 (25-34) pg MCHC 32.9 (32-36) g/dL RDW Std Deviation 51.4 H (36.4-46.3) fL RDW Coeff of Zoltan 17.5 H (11.5-14.5) % Plt Count 176 (130-400) K/uL MPV 9.6 (7.4-10.4) fL Immature Gran % (Auto) 0.5 % Neut % (Auto) 55.6 % Lymph % (Auto) 33.3 % York % (Auto) 8.5 % Eos % (Auto) 1.9 % Baso % (Auto) 0.2 % Neut # (Auto) 4.69 (1.4-6.5) K/uL Lymph # (Auto) 2.81 (1.2-3.4) K/uL York # (Auto) 0.72 H (0.11-0.59) K/uL Eos # (Auto) 0.16 (0-0.5) K/uL Baso # (Auto) 0.02 (0-0.2) K/uL Immature Gran # (Auto) 0.04 H (0.00-0.02) K/uL PT 10.9 (9.0-12.0) Seconds INR 1.0 (0.9-1.1) APTT 25.9 (21.0-31.0) Seconds PTT Ratio 0.9 POC pH (7.35-7.45) POC pCO2 (35-46) mmHg POC pO2 (80-95) mmHg POC HCO3 (19-24) halie/L POC Total CO2 (24-31) mmol/L POC Base Excess (-9-1.8) halie/L POC ABG O2 Sat (90-95) % POC Sodium (135-144) mmol/L Sodium (136-145) mmol/L POC Potassium (3.3-5.0) mmol/L Potassium (3.5-5.1) mmol/L Chloride (98-107) mmol/L Carbon Dioxide (21-32) mmol/L Anion Gap (3-11) BUN (7-18) mg/dl Creatinine (0.6-1.4) mg/dl Est Cr Clr Drug Dosing ml/min Est GFR ( Amer) Est GFR (Non-Af Amer) BUN/Creatinine Ratio (10-20) Glucose (70-99) mg/dl POC Glucose 182 H (70-99) mg/dl Calcium (8.5-10.1) mg/dl Magnesium (1.8-2.4) mg/dl Total Bilirubin (0.2-1) mg/dl AST (15-37) U/L ALT (12-78) U/L Alkaline Phosphatase (45-117) U/L Total Protein (6.4-8.2) gm/dl Albumin (3.4-5.0) gm/dl Globulin (2.5-4.0) gm/dl Albumin/Globulin Ratio (0.9-2) // Range/Units 07:40 WBC (4.8-10.8) K/uL RBC (4.7-6.1) M/uL Hgb (14.0-18.0) g/dL POC Hgb 15.3 (14.0-18.0) g/dl Hct (42-52) % POC Hct 45 (42-52) % MCV (80-100) fL MCH (25-34) pg MCHC (32-36) g/dL RDW Std Deviation (36.4-46.3) fL RDW Coeff of Zoltan (11.5-14.5) % Plt Count (130-400) K/uL MPV (7.4-10.4) fL Immature Gran % (Auto) % Neut % (Auto) % Lymph % (Auto) % York % (Auto) % Eos % (Auto) % Baso % (Auto) % Neut # (Auto) (1.4-6.5) K/uL Lymph # (Auto) (1.2-3.4) K/uL York # (Auto) (0.11-0.59) K/uL Eos # (Auto) (0-0.5) K/uL Baso # (Auto) (0-0.2) K/uL Immature Gran # (Auto) (0.00-0.02) K/uL PT (9.0-12.0) Seconds INR (0.9-1.1) APTT (21.0-31.0) Seconds PTT Ratio POC pH 7.40 (7.35-7.45) POC pCO2 40 (35-46) mmHg POC pO2 130 H (80-95) mmHg POC HCO3 25 H (19-24) halie/L POC Total CO2 26 (24-31) mmol/L POC Base Excess 0.0 (-9-1.8) halie/L POC ABG O2 Sat 99.0 H (90-95) % POC Sodium 140 (135-144) mmol/L Sodium (136-145) mmol/L POC Potassium 4.0 (3.3-5.0) mmol/L Potassium (3.5-5.1) mmol/L Chloride (98-107) mmol/L Carbon Dioxide (21-32) mmol/L Anion Gap (3-11) BUN (7-18) mg/dl Creatinine (0.6-1.4) mg/dl Est Cr Clr Drug Dosing ml/min Est GFR ( Amer) Est GFR (Non-Af Amer) BUN/Creatinine Ratio (10-20) Glucose (70-99) mg/dl POC Glucose (70-99) mg/dl Calcium (8.5-10.1) mg/dl Magnesium (1.8-2.4) mg/dl Total Bilirubin (0.2-1) mg/dl AST (15-37) U/L ALT (12-78) U/L Alkaline Phosphatase (45-117) U/L Total Protein (6.4-8.2) gm/dl Albumin (3.4-5.0) gm/dl Globulin (2.5-4.0) gm/dl Albumin/Globulin Ratio (0.9-2) PG Care Time/CCT Total # of Minutes Spent Total Time Spent with Patient: Total time spent is greater than 50% in coordination of care (as documented) at patient's floor/unit and/or counseling patient: Coding Level of Care Code 76739 Subseq Hosp Care Lvl 3 Diagnoses Acute on chronic HFrEF (heart failure with reduced ejection fraction) I50.23 Hypertension I10 Hypertension type: unspecified AICD (automatic cardioverter/defibrillator) present Z95.810 NICM (nonischemic cardiomyopathy) I42.8 Hypertensive urgency I16.0 Diabetes mellitus type 2 with complications E11.8 Poor intravenous access Z78.9 Syncope R55 Syncope type: unspecified Obstructive sleep apnea G47.33 Chronic respiratory failure J96.10 DVT prophylaxis Z29.9 (1) Hypertension Hypertension type: unspecified Qualified Code(s): I10 - Essential (primary) hypertension (2) Syncope Syncope type: unspecified Qualified Code(s): R55 - Syncope and collapse
--- NOTE | 2019-10-06 16:38 | Surgery Consultation ---
Date of Consultation October 06, 2019 Assessment & Plan (1) Poor intravenous access: This is a 43y M with a PMH of NICM, COPD, MARIELENA, HTN, DM2, CHF (EF 25-30%), & noncompliance who was admitted on 10/04/19 with shortness of breath. This is his 8th hospitalization since april of this year. Patient has been requesting a port this admission due to poor IV access and frequent hospitalizations. He currently has a right PIV in place that is working. After review of patient's chart and obtaining history it does not appear that the patient is appropriate for a port at this time due to his extensive medical history and him being actively managed for acute on chronic heart failure. Do not think patient would tolerate lying flat for procedure at this time. There could be consideration for a picc line if more longwall shearer operator access is deemed necessary? Case discussed with Dr. Laughlin. History of Present Illness Attending Physician: Tonja Cadet MD History of Present Illness This is a 43y M with a PMH of NICM, COPD, MARIELENA, HTN, DM2, CHF (EF 25-30%), & noncompliance, who was admitted on 10/04/19 with shortness of breath. Patient has been admitted under medicine with a cardiology consultation and he is being managed for acute on chronic respiratory failure with decompensated heart failure. Patient reports he was admitted on 10/03 after he was found to be short of breath, developed L arm pain, and was spitting up blood tinged sputum. He has since been diuresed and has been improving . Of note this is the patients 8th admission since April of this year with similar episodes. The patient has been requesting a Port due to poor IV access and frequent hospitalizations. Surgery was consulted for consideration. Patient states he walks around at home with a walker and usually uses a scooter when he is outside going places. He tells me he wears 5L of supplemental O2 at home with activity. He sleeps sitting up. Patient says he is feeling better, but does not know why he spits up blood in the mornings and is having episodes of passing out. Allergies Allergy/AdvReac Type Severity Reaction Status Date / Time ceftriaxone Allergy Severe SHORTNESS Verified 10/04/19 00:36 OF BREATH lidocaine Allergy Severe SHORTNESS Verified 10/04/19 00:36 OF BREATH, diaphoretic, hives procaine Allergy Severe SHORTNESS Verified 10/04/19 00:36 OF BREATH, diaphoretic, hives amoxicillin Allergy Intermediate HIVES/FACIAL Verified 10/04/19 00:36 SWELLING clavulanic acid Allergy Intermediate HIVES/FACIAL Verified 10/04/19 00:36 SWELLING lisinopril Allergy Intermediate HIVES Verified 10/04/19 00:36 acetaminophen AdvReac Mild NAUSEA Verified 10/04/19 00:36 albuterol AdvReac Mild proair Verified 10/04/19 00:36 "trouble taking breaths" Home Medications Home Medications Medication Instructions Recorded Confirmed Type aspirin 81 mg tablet,delayed 81 mg PO QAM 09/17/18 10/04/19 History release OneTouch Delica Plus Lancet 30 #400 ea NS 12/23/18 10/03/19 Rx gauge OneTouch Verio test strips #400 ea NS 12/23/18 10/03/19 Rx nitroglycerin [Nitrostat] 0.4 mg SUBLINGUAL UD PRN 04/24/19 10/04/19 History Oxygen Home #1 ea 05/19/19 10/03/19 Rx torsemide 40 mg PO BID #120 tab 08/30/19 10/04/19 Rx Breo Ellipta 1 inh INHALATION QAM 09/21/19 10/04/19 History budesonide 0.25 mg INHALATION Q12 09/21/19 10/04/19 History gabapentin 300 mg PO DAILY #30 cap 09/23/19 10/04/19 Rx cholecalciferol (vitamin D3) 50 mcg PO BID 10/04/19 10/04/19 History [Vitamin D3] esomeprazole magnesium 20 mg PO BID 10/04/19 10/04/19 History isosorbide mononitrate 30 mg PO DAILY 10/04/19 10/04/19 History potassium chloride [Klor-Con M20] 20 meq PO BID 10/04/19 10/04/19 History spironolactone 50 mg PO QAM 10/04/19 10/04/19 History Patient History Medical History Chronic respiratory failure 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 Underwent procedure without any complications monitored over night and discharged home. Obstructive sleep apnea SOB (shortness of breath) Umbilical hernia Vitamin D insufficiency Previously deficient, taking Vit D supplementation Surgical History History of carpal tunnel surgery History of cholecystectomy S/P tonsillectomy Family History Father , age 57 of an [place]. Heart disease Myocardial infarction Mother , age 67 of a ruptured neck vessel Sudden Other Depression Lung disease No pertinent family history Denies family history of Ovarian cancer Prostate cancer Breast cancer Colorectal cancer Social History Smoking Status: Never smoker Age Started Using Tobacco: 14; Age Quit Using Tobacco: 18; Cigarettes Per Day: 40-50; Second Hand Exposure: No; Hx Alcohol Use: No Hx Substance Use: No Preferred Language: Guatemalan Communication Ability: Effective Visual Impairment: No Limitations Hearing Ability: Normal Box Loader Required: No Beliefs That Will Affect Care: None marital status: Current Living Situation: Spouse current occupational status: unemployed How many Children do You have: 0 Feels Safe at Home: Yes Safety Concerns: Feels Safe At This Time Childhood Exposure to Second-Hand Smoke: Yes Dental Care, Regularly: Yes Physical Activity Frequency: Does not Exercise Review of Systems Respiratory: + dyspnea on exertion blood noted in sputum in the mornings, wears 5L of O2 at home with activity sleeps sitting up, does not lie flat Integumentary: multiple sores/scabs on UE's Physical Exam Physical Exam: awake, sitting up in bed Neck: + thick neck Respiratory: no respiratory distress room air Cardiovascular: AICD in place; surgical scar noted Skin: bilateral UE sores noted at previous IV attempts; some scabbing Results & Data ([facility]) Vital Signs (Past 12 Hours) Vital Signs Temp Pulse Pulse Pulse Resp BP Pulse Ox 10/06/19 15:18 36 C L 74 20 124/78 96 10/06/19 11:18 36.4 C L 82 20 114/70 99 10/06/19 07:14 36.4 C L 62 18 135/65 98 10/06/19 07:00 73 08/24/20 06:06 76 20 119/79 98 PG Care Time/CCT Total # of Minutes Spent Total Time Spent with Patient: Total time spent is greater than 50% in coordination of care (as documented) at patient's floor/unit and/or counseling patient: Coding Level of Care Code 62150 Inpt Consult Level 2 Diagnoses Poor intravenous access Z78.9
[2019-10-07] MEDS: HEPARIN SOD 5,000 UNIT/0.5 ML VIAL SQ SCH ×2 (05:50→13:36)
[2019-10-07] MEDS: NITROGLYCERIN 2% OINTMENT 30GM TUBE EXT SCH ×2 (05:51→11:46)
[2019-10-07 07:30] LABS: Partial Thromboplastin Ratio 1.1; Partial Thromboplastin Time 31.1 Seconds (21.0-31.0)
[2019-10-07 07:50] LABS: Creatinine Clr Calc Pharmacy 115.3 ml/min; Est GFR (African American) 85.1; Est GFR (Non-African American) 73.4; Magnesium 1.9 mg/dl (1.8-2.4); Potassium 3.8 mmol/L (3.5-5.1)
[2019-10-07] MEDS: INSULIN ASPART 100 UNITS/ML 3 ML PEN SC SCH ×2 (08:31→11:45)
[2019-10-07] MEDS: SACUBITRIL-VALSARTAN 97-103 MG TAB PO SCH (08:33)
[2019-10-07] MEDS: METOPROLOL SUCC 50MG EXT REL TAB PO SCH (08:33)
[2019-10-07] MEDS: ISOSORBIDE MONO EXTENDED REL 30 MG TABCR PO SCH (08:33)
[2019-10-07] MEDS: POTASSIUM CHLORIDE 20 MEQ TABCR PO SCH (08:34)
[2019-10-07] MEDS: FUROSEMIDE 60 MG in SYRINGE 0 ML IV SCH (08:34)
[2019-10-07] MEDS: SPIRONOLACTONE 25 MG TAB PO SCH (08:34)
--- NOTE | 2019-10-07 15:12 | Discharge Summary ---
Date of Service October 07, 2019 Admission HPI Per Admitting Provider The patient is a 43-year-old male with a past medical history including chronic HFrEF, tussive syncope, AICD, NICM, diabetes mellitus, MARIELENA, hypertensive urgency, morbid obesity and COPD. The patient was found to be in acute respiratory failure upon arrival to the ED, and was placed on BiPAP with improvement in symptoms. Most recent hospitalizations since April of this year: 04/29-04/29, 05/04-05/06, 05/24-05/26, 07/26-07/28, 08/27-08/29, 09/10-09/12 and 09/20-09/22. Patient had been doing a little worse than his baseline, however, after going to his outpatient physician appointment today, he became short of breath shortly t hereafter, and presented to the ED for assessment. This likely was secondary to his low functional capacity. He does also report several episodes of passing out over the past few days related to his tussive syncope Principal Diagnosis Acute on chronic systolic and diastolic CHF Discharge Exam Constitutional WD/WN, vitals as above + morbidly obese Eyes + anicteric sclerae Neck trachea midline, no thyromegaly Respiratory normal respiratory effort, lungs clear to auscultation Auscultation: + diminished lung sounds (Throughout due to body habitus) Cardiovascular RRR, no murmur, no edema Chest (Breasts) Chest: normal inspection of chest Gastrointestinal (Abdomen) Inspection/Auscultation: normal bowel sounds; abdomen not distended Percussion/Palpation: abdomen soft (Obese); abdomen nontender Musculoskeletal Extremities: extremities normal to inspection; no cyanosis and no clubbing Skin + lesion (Multiple scabs on arms and legs) Neurologic moves all extremities and awake; no focal motor deficits Psychiatric A+Ox3, euthymic affect Lymphatic no lymphedema Discharge Data Allergies Allergy/AdvReac Type Severity Reaction Status Date / Time ceftriaxone Allergy Severe SHORTNESS Verified 10/04/19 00:36 OF BREATH lidocaine Allergy Severe SHORTNESS Verified 10/04/19 00:36 OF BREATH, diaphoretic, hives procaine Allergy Severe SHORTNESS Verified 10/04/19 00:36 OF BREATH, diaphoretic, hives amoxicillin Allergy Intermediate HIVES/FACIAL Verified 10/04/19 00:36 SWELLING clavulanic acid Allergy Intermediate HIVES/FACIAL Verified 10/04/19 00:36 SWELLING lisinopril Allergy Intermediate HIVES Verified 10/04/19 00:36 acetaminophen AdvReac Mild NAUSEA Verified 10/04/19 00:36 albuterol AdvReac Mild proair Verified 10/04/19 00:36 "trouble taking breaths" Consultations 10/04/19 01:10 ED Decision to Admit Stat 10/04/19 02:58 Consult Case Management - Discharge Planning Routine 10/04/19 04:16 Consult Cardiology Routine 10/06/19 15:36 Consult General Surgery Routine Ordered Studies CXR Hospital Course (1) Acute on chronic HFrEF (heart failure with reduced ejection fraction): Echocardiogram in 03/2019 with LVEF 25-30% with global hypokinesis of the LV With numerous admissions for similar presentation over the last year. Patient has low intelligence and I feel has great difficulty with understanding concepts of low-sodium diet and fluid restriction. Also, it seems he has not refilled his Entesto or Toprol since 11/2018...refilled these upon discharge Responded incredibly well to Lasix 60mg IV BID and lost 10kg, net neg 10L this admission and feels well, no hypoxia, is ambulating without dyspnea and able to lie flat Home diuretic is torsemide 40 mg p.o. twice daily--> increase to 40mg po tid on discharge Increased aldactone to 50mg qAM and 25mg qPM appreciate cardiology input -refilled Rxs for Entresto, Toprol -continue Imdur continue CHF education, fluid restrict, daily weights, low Na+ diet encouraged (2) Hypertension: BP controlled -Continue torsemide, Toprol, Aldactone at increased dose, Entresto continue Imdur (3) AICD (automatic cardioverter/defibrillator) present: pacer interrogated, no issues (4) NICM (nonischemic cardiomyopathy): continue Toprol, Entresto, Aldactone diuresis as above (5) Hypertensive urgency: treated with Labetalol and now resolved Continue meds as above (6) Diabetes mellitus type 2 with complications: Place on Accu-Cheks before meals and at bedtime with NovoLog coverage per scale monitor for hypoglycemia, no episodes it seem she is on Tresiba at home? It was prescribed recently but was not on his home med list here-f/u with PCP (7) Poor intravenous access: patient interested in getting a port placed as he has poor venous access and numerous admissions discussed with him that really this would be up to a surgeon if they feel it is appropriate he has peripheral IV in right UE, working fine -Patient is adamant about wanting it done this admission-we will ask the surgeon to see here, but this is not urgent issue---> Surgeon saw him and said did not feel the risk was worth it (8) Syncope: History of tussive syncope Was suggested to start on gabapentin for this last admission but it has been held this admission-unclear why? Restart on discharge (9) Obstructive sleep apnea: Continue BiPAP at night (10) Chronic respiratory failure: Requires O2 with BiPAP at night Has been on room air here during the day (11) DVT prophylaxis: Heparin SQ Disposition-stable for dc to home Total Time Total Time Spent Total Time Spent (In Minutes): >30 min Total Time Includes: Examination of the Patient, Discharge Planning and Medication Reconciliation Discharge Plan Discharge Items Patient Disposition: Home - Self-Care Reason For Visit: ACUTE ON CHRONIC HFrEF Discharge Diagnosis: Congestive heart failure Condition on Discharge: Fair Activity: Resume your previous activity Non-emergency contact: Primary Care Provider and [facility] Call non-emergency contact if: you have any medication questions and your symptoms worsen Follow-up/Referrals: Rodney Keyes MD [Primary Care Provider] - (Follow up within 1 week.) Shon Hernandez DO [Brusher] - (Follow up within 1-2 weeks.) Diet: Low Sodium (2gm) Fluids: 1800ml (7 cups) Addtl Attending Provider Instructions: Your torsemide was increased to 40mg THREE TIMES A DAY and your spironolactone was increased to 50mg in the morning and 25mg in the evening. This will help keep the extra fluid off of you and help your breathing. You should not eat any ridley, sausage, or lunch meat as these all have a lot of sodium which will cause you to hold onto your water. Please limit your amount of fluid to 60 oz. per day. You should be taking Toprol XL, Entresto as well. Call your Primary Care doctor if any of the following symptoms or problems start or get worse: * Shortness of breath or difficulty breathing * Wake up at night short of breath * Chest pain * Cough * Swelling of your hands, feet, or legs * More fatigued or tired with your normal activity * Palpitations - sudden fast heart beats WEIGHT * Weigh yourself every morning after using the bathroom. * Use the same scale. * Wear the same amount of clothing. * Write your weight down on a chart. * Call your Primary Care doctor if you gain more than 2-3 pounds in 1-2 days. MEDICATIONS * Use this discharge instruction sheet for medication instructions. * Take your medications at the time your doctor ordered. * Do not skip a dose of your medicines. * If you miss a dose of medicine, take it as soon as possible, but DO NOT DOUBLE A DOSE. * Read your medicine information when you get home. * Know all of the side effects of your medicine. If in doubt, ask your pharmacist * Call your Primary Care doctor's office if you have any side effects. * Be sure all of your doctors know what medicine and herbs you take (including cold, flu, and herbal medicine). Take the following with you to your follow-up doctor appointments: * Weight Chart * Medication List * List of questions Do not drink excessive alcohol, beer or wine. Pending Studies at Discharge: No Stand-Alone Forms: My [facility] Medications and DC Order Prescriptions: New metoprolol succinate 100 mg tablet extended release 24 hr 100 mg PO BID Qty: 60 RF: 0 Entresto 97-103 mg Tablet 1 tab PO BID Qty: 60 RF: 0 spironolactone 25 mg tablet 50 mg PO QAM 30 Days Qty: 90 RF: 0 Continued (DME) lancets [OneTouch Delica Plus Lancet] 30 gauge misc See Dose Instructions .ROUTE .MEDSUPPLY Qty: 400 RF: 3 (DME) OneTouch Verio test strips strip See Dose Instructions .ROUTE .MEDSUPPLY Qty: 400 RF: 3 (DME) Oxygen Home Liters Per Minute See Rx Instructions .ROUTE .MEDSUPPLY Qty: 1 RF: 5 aspirin [Aspirin Low Dose] 81 mg tablet,delayed release (DR/EC) 81 mg PO QAM RF: 0 nitroglycerin [Nitrostat] 0.4 mg tablet, sublingual 0.4 mg sublingual UD PRN (Reason: Chest Pain) RF: 0 budesonide 0.25 mg/2 mL suspension for nebulization 0.25 mg inhalation Q12 RF: 0 Breo Ellipta 200-25 mcg/dose blister with device 1 inh INHALATION QAM RF: 0 gabapentin 100 mg capsule 300 mg PO DAILY Qty: 30 RF: 0 isosorbide mononitrate 30 mg tablet extended release 24 hr 30 mg PO DAILY RF: 0 esomeprazole magnesium 20 mg Tablet,Delayed Release (Dr/Ec) 20 mg PO BID RF: 0 cholecalciferol (vitamin D3) [Vitamin D3] 50 mcg (2,000 unit) Tablet 50 mcg PO BID RF: 0 potassium chloride [Klor-Con M20] 20 mEq tablet,ER particles/crystals 20 meq PO BID Qty: 0 RF: 0 Changed torsemide 20 mg tablet 40 mg PO TID Qty: 180 RF: 0 Discharge Orders: Discharge Order (Routine); Ordered 10/07/19 Ordered By: Tonja Cadet Admission Data Admit Date/Time: 10/04/19 02:04 Attending Provider: Tonja Cadet Admit Provider: Noé Jaquez Primary Care Provider: Rodney Keyes Other Providers: Noé Jaquez ; Vick Benoit ; Raj Laughlin Coding Level of Care Code D/C Day Management >30 mins Diagnoses Acute on chronic HFrEF (heart failure with reduced ejection fraction) I50.23 Hypertension I10 Hypertension type: unspecified AICD (automatic cardioverter/defibrillator) present Z95.810 NICM (nonischemic cardiomyopathy) I42.8 Hypertensive urgency I16.0 Diabetes mellitus type 2 with complications E11.8 Poor intravenous access Z78.9 Syncope R55 Syncope type: unspecified Obstructive sleep apnea G47.33 Chronic respiratory failure J96.10 DVT prophylaxis Z29.9
--- NOTE | 2019-10-07 17:37 | Cardiology Progress Note ---
Date of Service October 07, 2019 Assessment & Plan (1) Acute on chronic heart failure with reduced ejection fraction and diastolic dysfunction: (2) Noncompliance: (3) Hypertensive urgency: (4) NICM (nonischemic cardiomyopathy): (5) Obstructive sleep apnea: 43 male mated with acute on chronic respiratory insufficiency secondary to decompensated heart failure with reduced ejection fraction most likely secondary to noncompliance. Patient is now been successfully diuresed. Would discharge home on previous outpatient medical regimen. Given his brisk response to diuresis I do not believe the patient was compliant with his outpatient medication. We will need close cardiac follow-up. The absolute need for strict medication adherence was discussed with him at great lengths. Okay to discharge home from a cardiac standpoint. Admission and Anticipated Discharge Date Admission Date: October 04, 2019 Subjective Patient seen and examined, chart reviewed. States he is feeling much better today. States his breathing appears to be at baseline. Patient is very anxious for discharge, states he needs to collect a monetary debt. Denies chest pain, palpitations, lightheadedness, dizziness or syncope. Telemetry reviewed: Normal sinus rhythm without arrhythmia or significant ectopy. Review of Systems Review of Systems: All systems reviewed & are unremarkable except as noted in HPI & below Physical Exam Physical Exam: General: Awake, alert and oriented x 3. No acute distress. HEENT: Normocephalic, atraumatic. Pupils equal, round and reactive to light and accommodation. Extraocular muscles are intact. Anicteric sclera. Moist mucous membranes. Neck: No JVD. No bruit. Cardiovascular: Regular. Positive S-4. Normal S-1 and S-2. No S-3. No murmurs or rubs. Pulmonary: Clear to auscultation B/L. No rales, rhonchi or wheezing Abdomen: Bowel sounds x 4, soft. No rebound, guarding or tenderness. No organomegaly. Extremities: No clubbing, cyanosis or edema. +2 pedal pulses bilaterally. Skin: Warm and dry. Results & Data ([facility]) Vital Signs (Past 12 Hours) Vital Signs Temp Pulse Pulse Pulse Resp BP BP 10/07/19 15:21 36.6 C 86 76 22 113/71 114/78 10/07/19 11:07 36.6 C 86 22 113/71 10/07/19 07:30 72 10/07/19 07:00 36.4 C L 72 17 114/78 10/07/19 06:38 36.5 C 73 19 109/76 Pulse Ox 10/07/19 15:21 96 10/07/19 11:07 96 10/07/19 07:30 10/07/19 07:00 99 10/07/19 06:38 98
== END 2019-10-07 16:35 | disposition home or self-care (01) | DRG 291 ==
LOC: ED 00:10 → 2E 02:04 → SUATTDRO 02:04 → 2E 02:23 → 2S 10-05 20:29
DX: Z88.4 Allergy status to anesthetic agent; E11.8 Type 2 diabetes mellitus with unspecified complications; G47.33 Obstructive sleep apnea (adult) (pediatric); E66.01 Morbid (severe) obesity due to excess calories; Z79.82 Long term (current) use of aspirin; I50.43 Acute on chronic combined systolic (congestive) and diastolic (congestive) heart failure; Y92.009 Unspecified place in unspecified non-institutional (private) residence as the place of occurrence of the external cause; R25.2 Cramp and spasm; Z79.899 Other long term (current) drug therapy; W19.XXXA Unspecified fall, initial encounter; Z95.810 Presence of automatic (implantable) cardiac defibrillator; I11.0 Hypertensive heart disease with heart failure; I16.0 Hypertensive urgency; R10.11 Right upper quadrant pain; Z88.8 Allergy status to other drugs, medicaments and biological substances; Z88.1 Allergy status to other antibiotic agents; J44.9 Chronic obstructive pulmonary disease, unspecified; K59.00 Constipation, unspecified; R07.89 Other chest pain; Z91.19 Patient's noncompliance with other medical treatment and regimen; J96.01 Acute respiratory failure with hypoxia; Z87.891 Personal history of nicotine dependence; Z88.6 Allergy status to analgesic agent; I42.8 Other cardiomyopathies; Z82.49 Family history of ischemic heart disease and other diseases of the circulatory system; Z68.43 Body mass index [BMI] 50.0-59.9, adult; Z79.51 Long term (current) use of inhaled steroids; I16.1 Hypertensive emergency; R32 Unspecified urinary incontinence; Z88.0 Allergy status to penicillin; F70 Mild intellectual disabilities

== ENCOUNTER 2019-10-15 00:57 | Observation (INO) ==
[2019-10-15] MEDS ORDERED: LABETALOL HCL IV 5 MG/ML 20ML IV STA ×3 (01:09→04:52)
--- NOTE | 2019-10-15 01:16 | Emergency Department Note ---
Impression & Plan Hypertensive emergency, Acute left-sided weakness, Acute on chronic congestive heart failure ED Provider Note Name: HARDIK LOVE Age: 43 Sex: M Arrives Via: Ambulance Informant: Patient, EMS ED Provider: Lenny Moya MD Chief Complaint: Left sided weakness Impression: Hypertensive Emergency Acute Left-Sided Weakness Acute on Chronic Congestive Heart Failure Medical Decision Makin yr old male with extensive PMH including Congestive heart failure, hypertension, cardiomyopathy, DMII, MARIELENA, COPD, amongst others arrives a few days post discharge after hospitalization for acute CHF exacerbation. He is here this evening with primary complaint of difficulty using his left side. This started when he awoke 12+ hours ago, and he has somewhat non-consistent neuro exam with weakness of hand, but not arm, and weakness of leg but not foot. Patient notes inability to ambulate due to leg weakness all day. Given prolonged symptoms he was not stroke alert candidate, especially given how mild symptoms are on examination. He was however mildly hypoxic, severely hypertensive, and fluid overloaded by exam. Given 2 rounds IV labetalol to get pressures to start coming down. CXR with congestive failure (as he almost always is in). BNP elevated beyond his baseline. BSG elevated as well. CT head negative for acute findings. No fall to suggest Dissection as cause nor need for CTA brain emergently. No evidence of current infection. He was given ASA for for initial cva treatment while pending further workup. He was given IV lasix for acute on chronic chf. Patient is adamant he is taking his medications, however this seems very hard to believe given all of todays findings consistent with not taking his diuretics, not taking his BP meds, etc. He is stable, breathing comfortable other than mild hypoxia. He will clearly need to come in for further management and hospitalist consulted. Prior Medical Record and Triage/Nursing Notes reviewed by Me Additional history obtained from chart Differentials:Infection, dehydration, metabolic abnormality, hypo/hyperglycemia, electrolyte disturbance, anemia, hypoxia, cardiac sources, intracerebral event, toxicologic, neurologic, as well as other pathologies. Vital Signs: reviewed and remarkable for HTN, Tachy, Hypoxia Interventions: saline lock, asa 324mg po, lasix 40mg IV, labetelol 10mg IV x 2 Labs:Reviewed and remarkable for hyperglycemia, elevated bnp Imaging:X ray results are stated below per my interpretation: Chest: 1 view: Congestive failure, similar to previous cxr EKG:Per My Interpretation: Indication Shortness of breath: Sinus Tachy bpm, qtc 488. No ischemia, no ectopy. Similar morphology though increased rate compared to 10/04/19. Cardiac/Tele Monitoring: Cardiac Monitoring: An Order was placed for continuous cardiac monitoring. The monitor shows a rate of 105 bpm in sinus tach rhythm. Consults:Dr Leonid JACKSON Hospitalist Plan: Disposition:Hospitalization. Condition: Good Blood pressure:Elevated - Referred to Hospitalist Prescriptions:none PDMP: n/a History of Present Illness:43 male with extensive PMH including cardiomyopathy with decreased ejection fracture and ICD placement arrives for evaluation of left sided weakness. Patient notes he awoke this morning with left sided weakness. He states he has been dragging his foot all day and difficulty using left hand. He notes he feels like he has garbled speech and he states his was concerned that the left side of his face was drooping. EMS was called as he was not able to walk straight this evening when trying to get in hospital bed. States he has been taking all of his medications since discharge 6 days ago following episode of acute heart failure. He stated he did take this evenings medications. He has history of CAD but denies previous CVA history. He is on ASA 81mg daily. Patient does not know if he has gained weight over the last few days. Any walking makes symptoms worse, rest makes better. Patient notes some mild left chest, arm and leg pain. Denies syncope, fevers, chills, cough, a bdominal pain, vomiting, leg swelling (beyond normal), vision changes, neck pain, nor other symptoms ROS: See above HPI for pertinent positives & negatives. A total of 10 systems reviewed and were otherwise negative. Past Medical History:See Below Past Surgical History:See Below Family History:See Below Social History:See Below Home Medications:See Below Allergies:See Below Vitals:Blood Pressure: 210/110, Pulse 113, RR 16, T 36.5C, O2 89% on RA Physical Exam: GENERAL: Patient is chronically unwell appearing and in minimal distress. EYES: No scleral icterus, unremarkable pupils. ENT: Mucous membranes moist, no nasal congestion. NECK: No masses appreciated, nomeningismus, trachea is midline. RESPIRATORY: distant lung sounds, mild crackles, no wheezing, equal bilaterally. Minimal dyspnea CARDIOVASCULAR: Tachycardic.No murmurs, rubs, gallops appreciated. GASTROINTESTINAL: Abdomen soft, non-tender, no peritonitis.Bowel sounds positive.No masses appreciated. BACK: No midline tenderness, no CVA tenderness EXTREMITIES: Normal motion all extremities, no cyanosis, no edema. NEUROLOGIC: Alert and oriented,Patient with head leaning to left, though easily overcome with voluntary muscles. Speech is slightly slurred though difficult to tell if this is just his baselin. Unable/unwilling to lift left leg off ground but moves foot withotu issue, and is able to lift left arm but unable to squeeze hand. States not sensation to left side though reacts to touch. SKIN: No rash, no jaundice, no diaphoresis. PSYCH: Appropriate GCS: 15 ED Course: Times/Reassessments: Stable, using left arm without difficulty Critical Care: I have personally spent 30 minutes of critical care time in the direct management of this patient. Acute hypertensive emergency with acute on chronic CHF and neurologic deficits. This was a life/limb threatening event. This 30 minutes is in excess of all separately billable procedures. Lenny Moya MD Past Med/Surg History Medical History (Updated 10/15/19 @ 03:18 by Lenny Moya MD) Chronic respiratory failure 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 Underwent procedure without any complications monitored over night and discharged home. Obstructive sleep apnea SOB (shortness of breath) Umbilical hernia Vitamin D insufficiency Previously deficient, taking Vit D supplementation Surgical History History of carpal tunnel surgery History of cholecystectomy S/P tonsillectomy Family History Father , age 57 of an [place]. Heart disease Myocardial infarction Mother , age 67 of a ruptured neck vessel Sudden Other Depression Lung disease No pertinent family history Denies family history of Ovarian cancer Prostate cancer Breast cancer Colorectal cancer Social History Smoking Status: Former smoker Age Started Using Tobacco: 14; Age Quit Using Tobacco: 18; Cigarettes Per Day: 40-50; Second Hand Exposure: No; Hx Alcohol Use: No Hx Substance Use: No Preferred Language: Ecuadorean Communication Ability: Effective Visual Impairment: No Limitations Hearing Ability: Normal Per Assessment Nurse Required: No Beliefs That Will Affect Care: None marital status: Current Living Situation: Spouse current occupational status: unemployed How many Children do You have: 0 Feels Safe at Home: Yes Childhood Exposure to Second-Hand Smoke: Yes Dental Care, Regularly: Yes Physical Activity Frequency: Does not Exercise Allergies Allergies Allergy/AdvReac Type Severity Reaction Status Date / Time ceftriaxone Allergy Severe SHORTNESS Verified 10/15/19 02:04 OF BREATH lidocaine Allergy Severe SHORTNESS Verified 10/15/19 02:04 OF BREATH, diaphoretic, hives procaine Allergy Severe SHORTNESS Verified 10/15/19 02:04 OF BREATH, diaphoretic, hives amoxicillin Allergy Intermediate HIVES/FACIAL Verified 10/15/19 02:04 SWELLING clavulanic acid Allergy Intermediate HIVES/FACIAL Verified 10/15/19 02:04 SWELLING lisinopril Allergy Intermediate HIVES Verified 10/15/19 02:04 acetaminophen AdvReac Mild NAUSEA Verified 10/15/19 02:04 albuterol AdvReac Mild proair Verified 10/15/19 02:04 "trouble taking breaths" Home Meds Home Medications Medication Instructions Recorded Confirmed aspirin 81 mg tablet,delayed 81 mg PO QAM 09/17/18 10/15/19 release nitroglycerin [Nitrostat] 0.4 mg SUBLINGUAL UD PRN 04/24/19 10/15/19 Breo Ellipta 1 inh INHALATION QAM 09/21/19 10/15/19 budesonide 0.25 mg INHALATION Q12 PRN 09/21/19 10/15/19 cholecalciferol (vitamin D3) 50 mcg PO BID 10/04/19 10/15/19 [Vitamin D3] esomeprazole magnesium 20 mg PO BID 10/04/19 10/15/19 isosorbide mononitrate 30 mg PO DAILY 10/04/19 10/15/19 spironolactone 25 mg PO QPM 10/15/19 10/15/19 Previous Rx's Medication Instructions Recorded OneTouch Delica Plus Lancet 30 #400 ea NS 12/23/18 gauge OneTouch Verio test strips #400 ea NS 12/23/18 Oxygen Home #1 ea 05/19/19 gabapentin 300 mg PO DAILY #30 cap 09/23/19 metoprolol succinate 100 mg PO BID #60 tab 10/07/19 potassium chloride [Klor-Con M20] 20 meq PO BID #0 tab 10/07/19 sacubitril-valsartan [Entresto] 1 tab PO BID #60 tab 10/07/19 spironolactone 50 mg PO QAM 30 Days #90 tab 10/07/19 torsemide 40 mg PO TID #180 tab 10/07/19 Results & Data (ED) Vital Signs Vital Signs - 24 hr 10/15/19 01:02 10/15/19 01:10 10/15/19 02:11 Temperature 36.5 C Temperature Source Oral Pulse Rate 110 H 114 H 103 H Pulse Rate from SpO2 Sensor 111 H 102 H Pulse Rhythm Regular Pulse Strength Normal Respiratory Rate 30 H 25 H 29 H Respiratory Effort / Characteristics Non-Labored Respiratory Depth Normal Respiratory Pattern Regular Blood Pressure 207/125 H 207/125 H 183/127 H Blood Pressure Mean 164 152 135 Blood Pressure Position Sitting Pulse Oximetry 91 92 89 L Oxygen Delivery Method Room Air Room Air Room Air Oxygen Flow Rate Sepsis Recent Fever Within 48 Hours No Sepsis New/Unexplained Change in Mental Status No Sepsis Action Taken by Nursing Previously Notified 10/15/19 02:31 10/15/19 03:01 Temperature Temperature Source Pulse Rate 66 103 H Pulse Rate from SpO2 Sensor 67 104 H Pulse Rhythm Pulse Strength Respiratory Rate 17 18 Respiratory Effort / Characteristics Respiratory Depth Respiratory Pattern Blood Pressure 177/136 H 167/126 H Blood Pressure Mean 152 144 Blood Pressure Position Pulse Oximetry 89 L 94 Oxygen Delivery Method Nasal Cannula Oxygen Flow Rate 2 Sepsis Recent Fever Within 48 Hours Sepsis New/Unexplained Change in Mental Status Sepsis Action Taken by Nursing Laboratory Data Result diagrams: 10/15/19 01:42 10/15/19 01:42 Lab Results 10/15/19 10/15/19 10/15/19 Range/Units 01:42 01:42 01:42 WBC 7.77 (4.8-10.8) K/uL RBC 4.53 L (4.7-6.1) M/uL Hgb 12.2 L (14.0-18.0) g/dL Hct 36.9 L (42-52) % MCV 81.5 (80-100) fL MCH 26.9 (25-34) pg MCHC 33.1 (32-36) g/dL RDW Std Deviation 52.8 H (36.4-46.3) fL RDW Coeff of Zoltan 17.7 H (11.5-14.5) % Plt Count 147 (130-400) K/uL MPV 9.9 (7.4-10.4) fL Immature Gran % (Auto) 0.3 % Neut % (Auto) 70.1 % Lymph % (Auto) 23.0 % [place] % (Auto) 5.5 % Eos % (Auto) 1.0 % Baso % (Auto) 0.1 % Neut # (Auto) 5.44 (1.4-6.5) K/uL Lymph # (Auto) 1.79 (1.2-3.4) K/uL [place] # (Auto) 0.43 (0.11-0.59) K/uL Eos # (Auto) 0.08 (0-0.5) K/uL Baso # (Auto) 0.01 (0-0.2) K/uL Immature Gran # (Auto) 0.02 (0.00-0.02) K/uL PT 11.0 (9.0-12.0) Seconds INR 1.0 (0.9-1.1) APTT 28.3 (21.0-31.0) Seconds PTT Ratio 1.0 Sodium 142 (136-145) mmol/L Potassium 4.0 (3.5-5.1) mmol/L Chloride 112 H (98-107) mmol/L Carbon Dioxide 23 (21-32) mmol/L Anion Gap 7.0 (3-11) BUN 16 (7-18) mg/dl Creatinine 1.16 (0.6-1.4) mg/dl Est Cr Clr Drug Dosing 124.7 ml/min Est GFR ( Amer) 89.5 Est GFR (Non-Af Amer) 77.2 BUN/Creatinine Ratio 13.6 (10-20) Glucose 205 H (70-99) mg/dl Calcium 7.9 L (8.5-10.1) mg/dl Magnesium 1.8 (1.8-2.4) mg/dl Total Bilirubin 0.6 (0.2-1) mg/dl Direct Bilirubin 0.1 (0-0.2) mg/dl AST 18 (15-37) U/L ALT 21 (12-78) U/L Alkaline Phosphatase 75 (45-117) U/L Troponin I < 0.015 (0-0.045) ng/ml NT-Pro-B Natriuret Pep 5358 H (0-450) pg/ml Total Protein 6.7 (6.4-8.2) gm/dl Albumin 2.9 L (3.4-5.0) gm/dl Administered Medications Discontinued Medications Aspirin (Aspirin 81 Mg Chew) 324 mg PO NOW STA Stop: 10/15/19 02:42 Last Admin: 10/15/19 02:59 Dose: 324 mg Documented by: [id number] Furosemide (Furosemide 40 Mg/4 Ml Vial) 40 mg IV NOW STA Stop: 10/15/19 02:44 Last Admin: 10/15/19 03:01 Dose: 40 mg Documented by: [id number] Labetalol HCl (Labetalol Hcl Iv 5 Mg/Ml 20ml) 10 mg IV NOW STA Stop: 10/15/19 01:10 Last Admin: 10/15/19 01:27 Dose: 10 mg Documented by: [id number] Cosigned by: [id number] Labetalol HCl (Labetalol Hcl Iv 5 Mg/Ml 20ml) 10 mg IV NOW STA Stop: 10/15/19 02:42 Last Admin: 10/15/19 03:01 Dose: 10 mg Documented by: [id number] Cosigned by: [id number] Discharge Plan Visit Data Chief Complaint: Dizziness Stated Complaint: DIZZY/CHEST PAIN ED Provider: Lenny Moya Discharge Problem: Hypertensive emergency, Acute left-sided weakness, Acute on chronic congestive heart failure Forms Stand Alone Forms: My [facility] [employer] Prescriptions Prescriptions: No Action (DME) lancets [OneTouch Delica Plus Lancet] 30 gauge misc See Dose Instructions .ROUTE .MEDSUPPLY Qty: 400 RF: 3 (DME) OneTouch Verio test strips strip See Dose Instructions .ROUTE .MEDSUPPLY Qty: 400 RF: 3 (DME) Oxygen Home Liters Per Minute See Rx Instructions .ROUTE .MEDSUPPLY Qty: 1 RF: 5 aspirin [Aspirin Low Dose] 81 mg tablet,delayed release (DR/EC) 81 mg PO QAM RF: 0 nitroglycerin [Nitrostat] 0.4 mg tablet, sublingual 0.4 mg sublingual UD PRN (Reason: Chest Pain) RF: 0 budesonide 0.25 mg/2 mL suspension for nebulization 0.25 mg inhalation Q12 PRN (Reason: Shortness Of Breath Or Wheezing) RF: 0 Breo Ellipta 200-25 mcg/dose blister with device 1 inh INHALATION QAM RF: 0 gabapentin 100 mg capsule 300 mg PO DAILY Qty: 30 RF: 0 spironolactone 25 mg tablet 25 mg PO QPM RF: 0 isosorbide mononitrate 30 mg tablet extended release 24 hr 30 mg PO DAILY RF: 0 esomeprazole magnesium 20 mg Tablet,Delayed Release (Dr/Ec) 20 mg PO BID RF: 0 cholecalciferol (vitamin D3) [Vitamin D3] 50 mcg (2,000 unit) Tablet 50 mcg PO BID RF: 0 metoprolol succinate 100 mg tablet extended release 24 hr 100 mg PO BID Qty: 60 RF: 0 Entresto 97-103 mg Tablet 1 tab PO BID Qty: 60 RF: 0 spironolactone 25 mg tablet 50 mg PO QAM 30 Days Qty: 90 RF: 0 potassium chloride [Klor-Con M20] 20 mEq tablet,ER particles/crystals 20 meq PO BID Qty: 0 RF: 0 torsemide 20 mg tablet 40 mg PO TID Qty: 180 RF: 0 Discharge Problem: Acute on chronic congestive heart failure Qualifiers: Heart failure type: combined systolic and diastolic Qualified Code(s): I50.43 - Acute on chronic combined systolic (congestive) and diastolic (congestive) heart failure
[2019-10-15 01:54] LABS: Basophils # (auto) 0.01 K/uL (0-0.2); Basophils % (auto) 0.1 %; Eosinophils # (auto) 0.08 K/uL (0-0.5); Hematocrit (blood only) 36.9 % (42-52); Hemoglobin 12.2 g/dL (14.0-18.0); Immature Granulocytes # (auto) 0.02 K/uL (0.00-0.02); Immature Granulocytes % (auto) 0.3 %; Lymphocytes # (auto) 1.79 K/uL (1.2-3.4); Mean Corpuscular Hemoglobin 26.9 pg (25-34); Mean Corpuscular Hgb Conc 33.1 g/dL (32-36); Mean Corpuscular Volume 81.5 fL (80-100); Mean Platelet Volume 9.9 fL (7.4-10.4); Monocytes # (auto) 0.43 K/uL (0.11-0.59); Monocytes % (auto) 5.5 %; Neutrophils # (auto) 5.44 K/uL (1.4-6.5); Neutrophils % (auto) 70.1 %; Platelet Count 147 K/uL (130-400); RDW Coefficient of Variation 17.7 % (11.5-14.5); RDW Standard Deviation 52.8 fL (36.4-46.3); Red Blood Count 4.53 M/uL (4.7-6.1); White Blood Count 7.77 K/uL (4.8-10.8)
[2019-10-15 02:04] LABS: Partial Thromboplastin Time 28.3 Seconds (21.0-31.0)
[2019-10-15 02:12] LABS: Alanine Aminotransferase 21 U/L (12-78); Albumin Level 2.9 gm/dl (3.4-5.0); Aspartate Aminotransferase 18 U/L (15-37); BUN Creatinine Ratio 13.6 (10-20); Bilirubin Direct 0.1 mg/dl (0-0.2); Blood Urea Nitrogen 16 mg/dl (7-18); Calcium 7.9 mg/dl (8.5-10.1); Carbon Dioxide 23 mmol/L (21-32); Chloride 112 mmol/L (98-107); Creatinine Clr Calc Pharmacy 124.7 ml/min; Est GFR (African American) 89.5; Est GFR (Non-African American) 77.2; Glucose 205 mg/dl (70-99); Magnesium 1.8 mg/dl (1.8-2.4); Sodium 142 mmol/L (136-145)
[2019-10-15 02:18] LABS: Alkaline Phosphatase 75 U/L (45-117); Bilirubin,Total 0.6 mg/dl (0.2-1); NT Pro B Type Natriuretic Pept 5358 pg/ml (0-450); Total Protein 6.7 gm/dl (6.4-8.2); Troponin I < 0.015 ng/ml (0-0.045)
[2019-10-15] MEDS ORDERED: ASPIRIN 81 MG CHEW PO STA (02:41)
[2019-10-15] MEDS ORDERED: FUROSEMIDE 40 MG/4 ML VIAL IV STA ×2 (02:43→04:52)
--- NOTE | 2019-10-15 04:34 | History & Physical Report ---
Date of Service October 15, 2019 Assessment & Plan (1) Acute on chronic heart failure with reduced ejection fraction and diastolic dysfunction: Alok Huff is a 43 y/o male with recurring acute on chronic congestive heart failure with numerous admissions for same, Non-ischemic cardiomyopathy, HTN emergency, gastritis, cardiac defribillator in place, DM insulin/oral, MARIELENA, non-compliance, fatty liver, morbid obesity, who presented to [facility] ED for confusion. Confusion same as prior Acute exacerbations of underlying CHF, chronic resp failure, non-compliance. Multifactorial from non-compliance with BiPAP at night promoting hypoxia and also non-compliance with medication/diet for CHF which caused pulmonary edema leading to diminished capacity to ventilate and contributing to hypoxia/confusion. Improved with Oxygen here. - Weight is up to 166.6kg in ED from discharge one week ago of 153.7kg (admission weight from that visit was 163.5. -Numerous prior hospitalizations for same. Dose not appear as bad as when I saw him on 08/28/19 admit which required shoeshiner consult. -Appears to only have been taking Torsemide BID and not TID as directed on recent hospital discharge. -Noted to have eaten an Prydeinig sub/hoagie which most likely was high in sodium. Also was not taking Torsemide as directed TID from last discharge, only BID. -Will give Lasix 40mg IV on floor. Hold torsemide in the meantime. -C/w Spironalactone home dose 50mg qAM, 25qPM as mortality benefit and to en courage compliance with habitual routine while in hospital. -Creatinine supports ability to be aggressive with diuretics to help patient. -c/w home toprol, entresto, imdur, received ASA 324mg PO in Ed, c/w home ASA dose daily. -Monitor Is and Os -Monitor on tele -Low salt diet -Provide education Most important hospital treatment will be supplemental O2, diuresis to promote better oxygenation to brain...and patient education. 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 Same etiology as numerous prior admissions. - Non-compliant with usage since discharge from hospital. He states his settings are too high and he can't breath, he denies device popping off. He states he isn't allowed to touch settings on machine. - For rec settings reviewed old EMR would rec to continue BiPAP 31/10 nightly and follow-up with the [facility] outpatient sleep clinic. Appears to tolerate in hospital. Unsure of underlying issues with settings/machine at home or if lack of effort to comply. (3) Hypertensive emergency: Still high in ED s/p Labetalol 10mg IV x2. Unsure to degree contributing to reduced consciousness which was reported. No seizure activity. Will give another Labetalol 10mg IV on floor and will continue to lower. He has had same episodes of this in the past on prior hospitalizations requiring Labetalol treatment. Suspect non-compliance with meds versus non-compliance with low salt diet. (4) Hypertension: as above, treating HTN emergency then defer to HTN management Low salt diet (5) Tachycardia: will monitor on tele, most likely compensation from earlier hypoxic events has been getting labetalol for HTN so should help to improve (6) DVT prophylaxis: seemed to do well on Heparin SQ from prior chart review and will continue (7) AICD (automatic cardioverter/defibrillator) present: noted in history, no reports of firing. (8) Diabetes mellitus type 2 with complications: There seems to have been a breakdown from discharge to admission. Does not appear to be on any home medications currently. He was advised to follow up with PCP for such after discharge, but I'm not able to verify if this happened. His last Hgb A1C was 09/12/19 from memory from cumbersome chart review, and was 7.9. Arguably his numerous time spent in the inpatient setting might have benefited improved glycemic control, but he's been on sliding scale from some prior visits. He would most likely need basal coverage and should be on basal coverage at home. Will order Lantus 20 units BID CF 15, Carb ratio 5 (9) Chronic respiratory failure: Currently on 2L 94 % in ED (10) COPD (chronic obstructive pulmonary disease): C/w Breo Formulary substitute 1 inh inhalation qAM (11) Poor intravenous access: Was worked up for at most recent hospitalization (12) Noncompliance: Unfortunately unable to thrive outside of structured setting as numerous admissions monthly over the summer. Will continue to be diligent to provide education and to help with ability to lessen admissions to promote better quality of life. Numerous exacerbations from non-compliance raises grave concern for accelerated mortality. (13) NICM (nonischemic cardiomyopathy): History of Present Illness Chief Complaint: Confusion/Dypsnea Primary Care Provider: Poornima Rocha MD Caveat: History Limited by - Vague/unreliable historian. Alok Huff is a 43 y/o male with recurring acute on chronic congestive heart failure with numerous admissions for same, Non-ischemic cardiomyopathy, HTN emergency, gastritis, cardiac defribillator in place, DM insulin/oral, MARIELENA, non- compliance, fatty liver, morbid obesity, who presented to [facility] ED for confusion and shortness of breath. He notes that he went to lay down in bed around 12am and had a 45 minute episode of reduced consciousness. He notes his daughter and were attempting to arouse him for 45 minutes. He notes that he felt short of breath and confused. EMS was then contacted. Need for EMS history was different for EMS (Chest pain and dizziness) that was sharp and took 2 NTG SL without relief. He mentions no chest pain to me or this as reason. He notes left shoulder pain which is worse with abduction and same as prior musculoskeletal pain. He noted to ED provider that he's had left sided weakness. CT Head was performed with no acute intracranial findings. He notes to me he has left shoulder and left ankle pain which he has had since 2019. He currently reports no weakness unilaterally. He notes that he's been taking Torsemide BID and has been compliant daily...recent hospital discharge one week ago shows this should be TID dosage. He notes for dinner tonight he ate an Prydeinig hoagie/sub. He states that his lower extremity edema has worsened and it was hard for him to get his right shoe on for transport here. He notes that he hasn't been compliant with BiPAP for his MARIELENA at night. He notes he cannot tolerate pressure settings. He denies that it pops off. He states that he isn't allowed to change settings on machine. In the ED, he improved with supplemental O2, ASA 324mg PO, Labetalol 10mg IV x 2 doses for HTN urgency. Which has same prior elevated levels on presentation to ED that are well controlled in the inpatient setting after initial treatment of HTN crisis. He was recently hospitalized with discharge last week. He has an unfortunate number of admission and inpatient days from chart review dating back to 02/2019 for same symptoms/similar story. Allergies Allergy/AdvReac Type Severity Reaction Status Date / Time ceftriaxone Allergy Severe SHORTNESS Verified 10/15/19 02:04 OF BREATH lidocaine Allergy Severe SHORTNESS Verified 10/15/19 02:04 OF BREATH, diaphoretic, hives procaine Allergy Severe SHORTNESS Verified 10/15/19 02:04 OF BREATH, diaphoretic, hives amoxicillin Allergy Intermediate HIVES/FACIAL Verified 10/15/19 02:04 SWELLING clavulanic acid Allergy Intermediate HIVES/FACIAL Verified 10/15/19 02:04 SWELLING lisinopril Allergy Intermediate HIVES Verified 10/15/19 02:04 acetaminophen AdvReac Mild NAUSEA Verified 10/15/19 02:04 albuterol AdvReac Mild proair Verified 10/15/19 02:04 "trouble taking breaths" Home Medications Home Medications Medication Instructions Recorded Confirmed Type aspirin 81 mg tablet,delayed 81 mg PO QAM 09/17/18 10/15/19 History release OneTouch Delica Plus Lancet 30 #400 ea NS 12/23/18 10/03/19 Rx gauge OneTouch Verio test strips #400 ea NS 12/23/18 10/03/19 Rx nitroglycerin [Nitrostat] 0.4 mg SUBLINGUAL UD PRN 04/24/19 10/15/19 History Oxygen Home #1 ea 05/19/19 10/03/19 Rx Breo Ellipta 1 inh INHALATION QAM 09/21/19 10/15/19 History budesonide 0.25 mg INHALATION Q12 PRN 09/21/19 10/15/19 History gabapentin 300 mg PO DAILY #30 cap 09/23/19 10/15/19 Rx cholecalciferol (vitamin D3) 50 mcg PO BID 10/04/19 10/15/19 History [Vitamin D3] esomeprazole magnesium 20 mg PO BID 10/04/19 10/15/19 History isosorbide mononitrate 30 mg PO DAILY 10/04/19 10/15/19 History Entresto 1 tab PO BID #60 tab 10/07/19 10/15/19 Rx metoprolol succinate 100 mg PO BID #60 tab 10/07/19 10/15/19 Rx potassium chloride [Klor-Con M20] 20 meq PO BID #0 tab 10/07/19 10/15/19 Rx spironolactone 50 mg PO QAM 30 Days #90 tab 10/07/19 10/15/19 Rx torsemide 40 mg PO TID #180 tab 10/07/19 10/15/19 Rx spironolactone 25 mg PO QPM 10/15/19 10/15/19 History diclofenac sodium [Voltaren] 4 g EXT QID 30 Days g 10/16/19 Rx Past Med/Surg History Medical History (Updated 10/15/19 @ 03:18 by Lenny Moya MD) Chronic respiratory failure 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 Underwent procedure without any complications monitored over night and discharged home. Obstructive sleep apnea SOB (shortness of breath) Umbilical hernia Vitamin D insufficiency Previously deficient, taking Vit D supplementation Surgical History History of carpal tunnel surgery History of cholecystectomy S/P tonsillectomy Family History Father , age 57 of an MA. Heart disease Myocardial infarction Mother , age 67 of a ruptured neck vessel Sudden Other Depression Lung disease No pertinent family history Denies family history of Ovarian cancer Prostate cancer Breast cancer Colorectal cancer Social History Smoking Status: Former smoker Age Started Using Tobacco: 14; Age Quit Using Tobacco: 18; Cigarettes Per Day: 40-50; Second Hand Exposure: No; Hx Alcohol Use: No Hx Substance Use: No Preferred Language: Gambian Communication Ability: Effective Visual Impairment: No Limitations Hearing Ability: Normal Appliances Sample Maker Required: No Beliefs That Will Affect Care: None marital status: Current Living Situation: Spouse current occupational status: unemployed How many Children do You have: 0 Feels Safe at Home: Yes Childhood Exposure to Second-Hand Smoke: Yes Dental Care, Regularly: Yes Physical Activity Frequency: Does not Exercise Review of Systems Review of Systems: All systems reviewed & are unremarkable except as noted in HPI & below Caveat: Limited by unreliable historian Constitutional: no fever, no chills and no weight loss Eyes: no diplopia and no spots in vision Ear, Nose, Mouth, Throat: no nasal obstruction and no epistaxis Respiratory: as per Subjective / HPI Cardiovascular: no chest pain at rest and no palpitations Gastrointestinal: no abdominal pain, no diarrhea/loose stools and no blood in stools Genitourinary: no dysuria, no difficulty urinating and no decreased urination Musculoskeletal: + joint pain (left shoulder chronic; left ankle since 2019); no back pain Integumentary: no rash and no lesions Neurologic: + confusion (resolved); no falls and no localized weakness (reported to ED, but told me no unilateral weakness) Psychiatric: no depression and no anxiety Physical Exam Constitutional: cooperative and comfortable; no acute distress super obese, drowsy but arises when lights turned on and easily with voice Eyes: PERRL, conjunctivae normal, anicteric sclerae ENMT: external ear and nose normal, oropharynx normal Neck: normal visual inspection large neck Respiratory: able to speak in complete sentences; no respiratory distress and does not use accessory muscles Auscultation: + diminished lung sounds (anterior bases; poor respiratory effort) Cardiovascular: Rate/Rhythm: regular rhythm and + tachycardic Extremities: + edema (bilateral legs 3+ pitting) Gastrointestinal (Abdomen): Percussion/Palpation: abdomen nontender, no guarding and abdomen not rigid Musculoskeletal: Head/Neck/Chest: normocephalic and head atraumatic Skin: warm and dry Neurologic: CN's II-XI intact bilaterally and moves all extremities; no focal motor deficits and not confused Speech / Cognition: + abnormal speech (slightly slurred/slow, but was just sleeping without BiPAP, no facial droop) Psychiatric: Orientation: oriented x 3 Insight: + poor insight Judgement: + poor judgement drowsy, easily arousable. Results & Data Results & Data ([facility]) Vital Signs (Past 12 Hours) Vital Signs Temp Pulse Resp BP Pulse Ox 10/15/19 03:01 103 H 18 167/126 H 94 10/15/19 02:31 66 17 177/136 H 89 L 10/15/19 02:11 103 H 29 H 183/127 H 89 L 10/15/19 01:10 36.5 C 114 H 25 H 207/125 H 92 10/15/19 01:02 110 H 30 H 207/125 H 91 Code Status & VTE Plan Code Status Full VTE Prophylaxis Plan VTE Prophylaxis will be ordered: Yes Supervising Physician Co-Signing Physician Notes Attending addendum: I have physically seen this patient, have supervised the medical residents activities, and agree with the H&P unless as otherwise noted. Assessment and Plan: Acute on chronic HFrEF/diastolic dysfunction- The patient will be admitted to telemetry for serial cardiac enzymes, serial EKG's, cardiac rhythm monitoring. Concerned this time as with previous occasions, is that the patient he is medically noncompliant, leading to recurrent CHF exacerbations and hospitalizations. Hold oral torsemide. Placed on Lasix 40 mg IV twice daily, with first dose now. Continue spironolactone as noted. Follow serial BMP and magnesium levels Continue home dosing of metoprolol succinate, Entresto, Imdur and aspirin. Again, as before, try to educate patient regarding appropriate diet and to take medications as directed. Remaining orders and notations as noted Resident Activity Tracking Resident Involvement: Resident Care Provided Care Provided: Adult Hospital Medicine (1) COPD (chronic obstructive pulmonary disease) COPD type: unspecified COPD Qualified Code(s): J44.9 - Chronic obstructive pulmonary disease, unspecified (2) Hypertension Hypertension type: unspecified Qualified Code(s): I10 - Essential (primary) hypertension
[2019-10-15] MEDS ORDERED: GLUCOSE 10 TABS/TUBE PO PRN (04:52)
[2019-10-15] MEDS ORDERED: DEXTROSE 50% 50 ML SYRINGE IV PRN (04:52)
[2019-10-15] MEDS ORDERED: NITROGLYCERIN SL 0.4 MG/TAB TAB SL PRN (04:52)
[2019-10-15] MEDS ORDERED: CARBOHYDRATES FOR HYPOGLYCEMIA PO PRN (04:52)
[2019-10-15] MEDS ORDERED: GLUCOSE 40% GEL 15 GM TUBE PO PRN (04:52)
[2019-10-15] MEDS ORDERED: GLUCAGON FOR INJ 1 MG VIAL SQ PRN (04:52)
[2019-10-15] MEDS: HEPARIN SOD 5,000 UNIT/0.5 ML VIAL SQ SCH ×3 (06:04→20:39)
--- NOTE | 2019-10-15 06:36 | CT Scan Report ---
CT head/brain wo con CLINICAL HISTORY: 43 years-old Male with left sided weakness since waking up (12+ hrs). Acute stroke like symptoms with left-sided weakness TECHNIQUE: Multiple axial CT images of the head were obtained without contrast. A dose lowering tech nique was utilized adhering to the principles of ALARA. CT DOSE: 1160.96 mGy.cm COMPARISON: Head CT 08/29/2019 FINDINGS: No acute intracranial hemorrhage, midline shift, intracranial mass, hydrocephalus, territorial ischem ia or abnormal extra-axial collection. There is unchanged mild patchy white matter hypodensities whic h may reflect chronic microvascular ischemic changes. The calvarium is intact. Indeterminate partially imaged ovoid cystic structure is noted posterior to the left ear within the subcutaneous tissues measuring 1.7 cm, possibly reflective of a sebaceous cys t. The paranasal sinuses, mastoid air cells, and middle ear cavities are clear. IMPRESSION: No acute intracranial abnormality. ACT 112: Negative or not required by law. The above report was generated using voice recognition software. It may contain grammatical, syntax o r spelling errors. Electronically signed by: Petr Irby M.D. 10/15/2019 6:35 AM
--- NOTE | 2019-10-15 06:40 | XRay Report ---
XR chest 1V portable HISTORY: 43 years-old Male left chest pain . Acute atypical chest pain COMPARISON: Chest radiograph 10/04/2019 TECHNIQUE: Portable AP view of the chest FINDINGS: Cardiac silhouette is enlarged, unchanged. Single lead left subclavian pacer. Patient is rotated whic h limits the study. No pneumothorax. Mild blunting of the costophrenic angles. Pulmonary vascular con gestion with interstitial coarsening, similar to prior. Bones appear grossly intact. IMPRESSION: Cardiomegaly with pulmonary edema. ACT 112: Negative or not required by law. The above report was generated using voice recognition software. It may contain grammatical, syntax o r spelling errors. Electronically signed by: Petr Irby M.D. 10/15/2019 6:39 AM
[2019-10-15] MEDS: ASPIRIN 81 MG ECTAB PO SCH (07:49)
[2019-10-15] MEDS: ISOSORBIDE MONO EXTENDED REL 30 MG TABCR PO SCH (07:49)
[2019-10-15] MEDS: SPIRONOLACTONE 25 MG TAB PO SCH (07:50)
[2019-10-15] MEDS: METOPROLOL SUCC 50MG EXT REL TAB PO SCH ×2 (07:50→20:39)
[2019-10-15] MEDS: SACUBITRIL-VALSARTAN 97-103 MG TAB PO SCH ×2 (07:50→20:39)
[2019-10-15] MEDS: FLUTICASONE/VILANTEROL 200/25MCG 14 PUFFS/INHALER INH SCH (07:51)
[2019-10-15] MEDS: INSULIN ASPART 100 UNITS/ML 3 ML PEN SC SCH ×4 (09:05→20:41)
[2019-10-15] MEDS: INSULIN GLARGINE SOLOSTAR 100 UNITS/ML 3 ML PEN SC SCH ×2 (09:07→20:40)
--- NOTE | 2019-10-15 11:48 | Hospitalist Progress Note ---
Date of Service October 15, 2019 Assessment & Plan (1) Acute on chronic heart failure with reduced ejection fraction and diastolic dysfunction: Alok Huff is a 43 y/o male with recurring acute on chronic congestive heart failure with numerous admissions for same, Non-ischemic cardiomyopathy, HTN emergency, gastritis, cardiac defribillator in place, DM insulin/oral, MARIELENA, non-compliance, fatty liver, morbid obesity, who presented to [facility] ED for confusion. Confusion same as prior Acute exacerbations of underlying CHF, chronic resp failure, non-compliance. Multifactorial from non-compliance with BiPAP at night promoting hypoxia and also non-compliance with medication/diet for CHF which caused pulmonary edema leading to diminished capacity to ventilate and contributing to hypoxia/confusion. Improved with Oxygen here. Patient doing well this morning although still seems a bit confused. Relate a story similar to the one he presented to the ED physicians except he also endorsed strokelike symptoms including weakness on his left side which he said was evaluated by the ED physicians. This was noted by the ED physician's note however he said that it is not a consistent exam findings, and extremely mild in nature he did not believe that these were from a stroke or TIA. Today during the physical exam I was unable to reproduce symptoms findings as well. As mentioned above patient was recently discharged for heart failure exacerbation, and was noncompliant with his medications taking torsemide twice daily instead of 3 times daily and lifestyle consuming high sodium foods including daily weights. Patient has a history of numerous hospitalizations for similar symptoms which were all deemed to be heart failure exacerbations, this does not appear to be is that his previous admission on 716 when he required stepdown nurse consultation I believe his current symptomatology likely stems from CHF exacerbation. - Weight is up to 166.6kg in ED from discharge one week ago of 153.7kg (admission weight from that visit was 163.5. . -Will give Lasix 40mg IV on floor. Hold torsemide in the meantime. -C/w Spironalactone home dose 50mg qAM, 25qPM as mortality benefit and to encourage compliance with habitual routine while in hospital. -Cr baseline 1.16, Room for aggressive diuresis -c/w home toprol, entresto, imdur, received ASA 324mg PO in Ed, c/w home ASA dose daily. -Monitor Is and Os/daily weights -Monitor on tele -Low salt diet -Provide education -prn o2 Most important hospital treatment will be supplemental O2, diuresis to promote better oxygenation to brain...and patient education. FENGI: Heart healthy/DM DVT ppx: Heparin SQ Code: Full Dispo: PCU/tele, full admit (2) Obstructive sleep apnea: Prior admissions the patient was having hypoxia and reduced consciousness. The patient is noncompliant with his CPAP machine at home saying that he "blows off. He has not had similar complaints during prior admissions. 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 - continue BiPAP 31/10 nightly and follow-up with the [facility] outpatient sleep clinic. Appears to tolerate in hospital. Unsure of underlying issues with settings/machine at home or if lack of effort to comply. (3) Hypertensive emergency: Received 2 doses of labetalol 10 mg IV in ED received another dose of labetalol 10 mg was 4 with resolution of his symptoms. Currently the patient is normotensive on his home regimen with his BP of 138/92. His exacerbations last night was most likely secondary to poor compliance and not taking his own blood pressure medications. During his hospitalization the patient required extensive education on his diabetes self-care management etc. (4) Hypertension: -Continue home meds, now normotensive -Low salt diet (5) Tachycardia: Has resolved since arrival most likely was secondary to hypoxic. -Currently monitored on telemetry, is no evidence of neurological stepdown feels general medical floors (6) DVT prophylaxis: seemed to do well on Heparin SQ from prior chart review and will continue (7) AICD (automatic cardioverter/defibrillator) present: noted in history, no reports of firing. (8) Diabetes mellitus type 2 with complications: There seems to have been a breakdown from discharge to admission. Does not appear to be on any home medications currently. He was advised to follow up with PCP for such after discharge, but I'm not able to verify if this happened. His last Hgb A1C was 09/12/19 from memory from cumbersome chart review, and was 7.9. Arguably his numerous time spent in the inpatient setting might have benefited improved glycemic control, but he's been on sliding scale from some prior visits. He would most likely need basal coverage and should be on basal coverage at home. - Lantus 20 units BID CF 15, Carb ratio 5 -Well controlled on his regimen will continue. (9) Chronic respiratory failure: Currently on 2L 94 % in ED (10) COPD (chronic obstructive pulmonary disease): C/w Breo Formulary substitute 1 inh inhalation qAM (11) Poor intravenous access: -Was worked up for at most recent hospitalization -May need central line for access (12) Noncompliance: Unfortunately unable to thrive outside of structured setting as numerous admissions monthly over the summer. Will continue to be diligent to provide education and to help with ability to lessen admissions to promote better quality of life. Numerous exacerbations from non-compliance raises grave concern for accelerated mortality. -Appreciate social work consult to assist with medication he has (13) NICM (nonischemic cardiomyopathy): Admission and Anticipated Discharge Date Admission Date: October 15, 2019 Supervising Physician Co-Signing Physician Notes I personally examined the patient and verified all caraballo points of history and exam, discussed case, and agree with decision making with Dr Burr. breathing feeling better. bad headache - "like a vice" no photophobia, phonophobia or nausea. vitals noted laying in bed w neck extended and arms up above head heent nc at mmm breathing unlabored no accessory muscles good effort skin no rashes no pallor or icterus. R sided suboccipitals high tone/tender/decreased ROM - counterstrain/inhibitory pressure - improved, headache improved. pt tolerated well acute on chronic systolic CHF from nonischemic dilated cardiomyopathy - caused by dietary indiscretion (hoagie) and med nonadherence (reduction in diuretic dosing) -improving -continue current care suboccipital tension headache/Cspine somatic dysfunction - OMT as above Subjective Patient lying in bed today in no acute distress. It was difficult to understand the patient due to communication barriers. From what I could gather, he was in his usual state of health until yesterday when he had a questionable loss of consciousness. Apparently his daughter and his could not arouse him for 45 minutes, per review of the records there is no evidence that he hurt himself during this time. Although I believe he attempted to articulate that he hit his head. Patient does not appear to have a good understanding of his chronic medical conditions and how to properly manage them. Patient endorsing strokelike symptoms and weakness, however these were not appreciable on physical exam. Acute concerns related to IV placement and he was requesting a central line, all questions answered. Physical Exam Physical Exam: General: Morbidly obese individual lying in bed in no acute distress appearing tired HEENT: Normocephalic atraumatic Neck: Normal to visual inspection Cardiac: See attending attestation Respiratory: See attending attestation GI: Distended protuberant abdomen, nontender, no guarding, no rebound MSK: Moves all extremities 1 was not able to appreciate any weakness in the left side Skin: Cool dry intact Neuro: Alert and oriented a bit tangential at times Psych: Calm and cooperative Results & Data Results & Data ([facility]) Vital Signs (Past 12 Hours) Vital Signs Temp Pulse Pulse Resp BP BP Pulse Ox 10/15/19 11:34 36.9 C 85 18 138/92 96 10/15/19 11:00 89 10/15/19 07:37 36.5 C 91 H 19 162/120 H 95 10/15/19 06:00 87 148/109 H 10/15/19 04:52 91 H 10/15/19 04:48 36.5 C 93 H 18 117/113 H 98 10/15/19 04:00 105 H 28 H 171/114 H 10/15/19 03:39 84 22 157/103 H 95 10/15/19 03:30 86 22 151/100 H 95 10/15/19 03:01 103 H 18 167/126 H 94 10/15/19 02:31 66 17 177/136 H 89 L 10/15/19 02:11 103 H 29 H 183/127 H 89 L 10/15/19 01:10 36.5 C 114 H 25 H 207/125 H 92 10/15/19 01:02 110 H 30 H 207/125 H 91 Laboratory Results 10/15/19 10/15/19 10/15/19 Range/Units 11:06 07:38 05:37 WBC (4.8-10.8) K/uL RBC (4.7-6.1) M/uL Hgb (14.0-18.0) g/dL Hct (42-52) % MCV (80-100) fL MCH (25-34) pg MCHC (32-36) g/dL RDW Std Deviation (36.4-46.3) fL RDW Coeff of Zoltan (11.5-14.5) % Plt Count (130-400) K/uL MPV (7.4-10.4) fL Immature Gran % (Auto) % Neut % (Auto) % Lymph % (Auto) % [place] % (Auto) % Eos % (Auto) % Baso % (Auto) % Neut # (Auto) (1.4-6.5) K/uL Lymph # (Auto) (1.2-3.4) K/uL [place] # (Auto) (0.11-0.59) K/uL Eos # (Auto) (0-0.5) K/uL Baso # (Auto) (0-0.2) K/uL Immature Gran # (Auto) (0.00-0.02) K/uL PT (9.0-12.0) Seconds INR (0.9-1.1) APTT (21.0-31.0) Seconds PTT Ratio Sodium (136-145) mmol/L Potassium (3.5-5.1) mmol/L Chloride (98-107) mmol/L Carbon Dioxide (21-32) mmol/L Anion Gap (3-11) BUN (7-18) mg/dl Creatinine (0.6-1.4) mg/dl Est Cr Clr Drug Dosing ml/min Est GFR ( Amer) Est GFR (Non-Af Amer) BUN/Creatinine Ratio (10-20) Glucose (70-99) mg/dl POC Glucose 130 H (70-99) mg/dl Calcium (8.5-10.1) mg/dl Magnesium (1.8-2.4) mg/dl Total Bilirubin (0.2-1) mg/dl Direct Bilirubin (0-0.2) mg/dl AST (15-37) U/L ALT (12-78) U/L Alkaline Phosphatase (45-117) U/L Troponin I Pending < 0.015 (0-0.045) ng/ml NT-Pro-B Natriuret Pep (0-450) pg/ml Total Protein (6.4-8.2) gm/dl Albumin (3.4-5.0) gm/dl 10/15/19 10/15/19 10/15/19 Range/Units 01:42 01:42 01:42 WBC 7.77 (4.8-10.8) K/uL RBC 4.53 L (4.7-6.1) M/uL Hgb 12.2 L (14.0-18.0) g/dL Hct 36.9 L (42-52) % MCV 81.5 (80-100) fL MCH 26.9 (25-34) pg MCHC 33.1 (32-36) g/dL RDW Std Deviation 52.8 H (36.4-46.3) fL RDW Coeff of Zoltan 17.7 H (11.5-14.5) % Plt Count 147 (130-400) K/uL MPV 9.9 (7.4-10.4) fL Immature Gran % (Auto) 0.3 % Neut % (Auto) 70.1 % Lymph % (Auto) 23.0 % [place] % (Auto) 5.5 % Eos % (Auto) 1.0 % Baso % (Auto) 0.1 % Neut # (Auto) 5.44 (1.4-6.5) K/uL Lymph # (Auto) 1.79 (1.2-3.4) K/uL [place] # (Auto) 0.43 (0.11-0.59) K/uL Eos # (Auto) 0.08 (0-0.5) K/uL Baso # (Auto) 0.01 (0-0.2) K/uL Immature Gran # (Auto) 0.02 (0.00-0.02) K/uL PT 11.0 (9.0-12.0) Seconds INR 1.0 (0.9-1.1) APTT 28.3 (21.0-31.0) Seconds PTT Ratio 1.0 Sodium 142 (136-145) mmol/L Potassium 4.0 (3.5-5.1) mmol/L Chloride 112 H (98-107) mmol/L Carbon Dioxide 23 (21-32) mmol/L Anion Gap 7.0 (3-11) BUN 16 (7-18) mg/dl Creatinine 1.16 (0.6-1.4) mg/dl Est Cr Clr Drug Dosing 124.7 ml/min Est GFR ( Amer) 89.5 Est GFR (Non-Af Amer) 77.2 BUN/Creatinine Ratio 13.6 (10-20) Glucose 205 H (70-99) mg/dl POC Glucose (70-99) mg/dl Calcium 7.9 L (8.5-10.1) mg/dl Magnesium 1.8 (1.8-2.4) mg/dl Total Bilirubin 0.6 (0.2-1) mg/dl Direct Bilirubin 0.1 (0-0.2) mg/dl AST 18 (15-37) U/L ALT 21 (12-78) U/L Alkaline Phosphatase 75 (45-117) U/L Troponin I < 0.015 (0-0.045) ng/ml NT-Pro-B Natriuret Pep 5358 H (0-450) pg/ml Total Protein 6.7 (6.4-8.2) gm/dl Albumin 2.9 L (3.4-5.0) gm/dl Medications Administered Current Inpatient Medications Aspirin (Aspirin 81 Mg Ectab) 81 mg PO QAM SUKHWINDER Stop: 11/14/19 08:59 Last Admin: 10/15/19 07:49 Dose: 81 mg Documented by: Dextrose (Dextrose 50% 50 Ml Syringe) 25 - 50 ml IV UD PRN; Protocol PRN Reason: Hypoglycemia Protocol Stop: 11/14/19 04:51 Fluticasone/Vilanterol (Fluticasone/Vilanterol 200/25mcg 14 Puffs/Inhaler) 1 puffs INH QAM [facility] Stop: 11/14/19 08:59 Last Admin: 10/15/19 07:51 Dose: 1 puffs Documented by: Glucagon (Glucagon For Inj 1 Mg Vial) 1 mg SQ UD PRN; Protocol PRN Reason: Hypoglycemia Protocol Stop: 11/14/19 04:51 Glucose (Glucose 10 Tabs/Tube) 4 - 8 tabs PO UD PRN; Protocol PRN Reason: Hypoglycemia Protocol Stop: 11/14/19 04:51 Glucose (Glucose 40% Gel 15 Gm Tube) 15 - 30 gm PO UD PRN; Protocol PRN Reason: Hypoglycemia Protocol Stop: 11/14/19 04:51 Heparin Sodium (Porcine) (Heparin Sod 5,000 Unit/0.5 Ml Vial) 5,000 units SQ Q8 SUKHWINDER Stop: 11/14/19 05:59 Last Admin: 10/15/19 06:04 Dose: 5,000 units Documented by: Insulin Aspart (Insulin Aspart 100 Units/Ml 3 Ml Pen) 0 units SC ACHS SUKHWINDER Stop: 11/14/19 07:29 Last Admin: 10/15/19 09:05 Dose: 7 units Documented by: Insulin Glargine (Insulin Glargine Solostar 100 Units/Ml 3 Ml Pen) 20 units SC BID SUKHWINDER Stop: 11/14/19 08:59 Last Admin: 10/15/19 09:07 Dose: 20 units Documented by: Isosorbide Mononitrate (Isosorbide [place] Extended Rel 30 Mg Tabcr) 30 mg PO DAILY SUKHWINDER Stop: 11/14/19 08:59 Last Admin: 10/15/19 07:49 Dose: 30 mg Documented by: Metoprolol Succinate (Metoprolol Succ 50mg Ext Rel Tab) 100 mg PO BID SUKHWINDER Stop: 11/14/19 08:59 Last Admin: 10/15/19 07:50 Dose: 100 mg Documented by: Miscellaneous (Carbohydrates For Hypoglycemia ) 15 - 30 gm PO UD PRN PRN Reason: Hypoglycemia Protocol Stop: 11/14/19 04:51 Nitroglycerin (Nitroglycerin Sl 0.4 Mg/Tab Tab) 0.4 mg SL UD PRN PRN Reason: Chest Pain Stop: 11/14/19 04:51 Sacubitril/Valsartan (Sacubitril-Valsartan 97-103 Mg Tab) 1 tab PO BID SUKHWINDER Stop: 11/14/19 08:59 Last Admin: 10/15/19 07:50 Dose: 1 tab Documented by: Spironolactone (Spironolactone 25 Mg Tab) 25 mg PO QPM SUKHWINDER Stop: 11/14/19 20:59 Spironolactone (Spironolactone 25 Mg Tab) 50 mg PO QAM SUKHWINDER Stop: 11/14/19 08:59 Last Admin: 10/15/19 07:50 Dose: 50 mg Documented by: Resident Activity Tracking Resident Involvement: Resident Care Provided Care Provided: Adult Hospital Medicine (1) COPD (chronic obstructive pulmonary disease) COPD type: unspecified COPD Qualified Code(s): J44.9 - Chronic obstructive pulmonary disease, unspecified (2) Hypertension Hypertension type: unspecified Qualified Code(s): I10 - Essential (primary) hypertension
--- NOTE | 2019-10-15 17:06 | Hospitalist Progress Note ---
Date of Service October 15, 2019 Assessment & Plan Admission and Anticipated Discharge Date Admission Date: October 15, 2019 Results & Data Results & Data ([facility]) Vital Signs (Past 12 Hours) Vital Signs Temp Pulse Pulse Resp BP BP Pulse Ox 10/15/19 15:31 143/91 H 10/15/19 15:22 98.1 F 69 20 156/113 H 154/112 H 97 10/15/19 11:34 98.4 F 85 18 138/92 96 10/15/19 11:00 89 10/15/19 07:37 97.7 F 91 H 19 162/120 H 95 10/15/19 06:00 87 148/109 H PG Care Time/CCT Total # of Minutes Spent Total Time Spent with Patient: Total time spent is greater than 50% in coordination of care (as documented) at patient's floor/unit and/or counseling patient: Coding Level of Care Code None CPT Codes Musculoskeletal - Musculoskeletal: [address] 1-2 Body regions ([id number])
[2019-10-15] MEDS: DICLOFENAC SOD 1% GEL 100 GM TUBE EXT SCH ×2 (17:48→20:40)
[2019-10-15] MEDS ORDERED: SPIRONOLACTONE 25 MG TAB PO SCH (21:00)
--- NOTE | 2019-10-15 21:23 | Electrocardiogram Report ---
Test Reason : Blood Pressure : / mmHG Vent. Rate : 112 BPM Atrial Rate : 112 BPM P-R Int : 156 ms QRS Dur : 106 ms QT Int : 358 ms P-R-T Axes : 032 -36 097 degrees QTc Int : 488 ms Sinus tachycardia Possible Left atrial enlargement Left axis deviation Nonspecific T wave abnormality Abnormal ECG When compared with ECG of 06-OCT-2019 06:12, Vent. rate has increased BY 45 BPM QRS axis Shifted left T wave inversion less evident in Lateral leads Confirmed by Abraham Rosen ([id number]) on 10/15/2019 9:23:01 PM Referred By: REFERRED SELF Confirmed By:Abraham Rosen
[2019-10-16] MEDS: HEPARIN SOD 5,000 UNIT/0.5 ML VIAL SQ SCH ×2 (06:24→13:59)
[2019-10-16 06:51] LABS: Hemoglobin 13.5 g/dL (14.0-18.0); Mean Corpuscular Hemoglobin 26.9 pg (25-34); Mean Corpuscular Hgb Conc 32.9 g/dL (32-36); Mean Corpuscular Volume 81.8 fL (80-100); Mean Platelet Volume 10.1 fL (7.4-10.4); Platelet Count 156 K/uL (130-400); RDW Coefficient of Variation 17.8 % (11.5-14.5); Red Blood Count 5.01 M/uL (4.7-6.1); White Blood Count 7.03 K/uL (4.8-10.8)
[2019-10-16 07:21] LABS: BUN Creatinine Ratio 13.4 (10-20); Calcium 8.2 mg/dl (8.5-10.1); Creatinine Clr Calc Pharmacy 167.1 ml/min; Magnesium 1.9 mg/dl (1.8-2.4); Potassium 3.9 mmol/L (3.5-5.1)
--- NOTE | 2019-10-16 08:07 | Hospitalist Progress Note ---
Date of Service October 16, 2019 Assessment & Plan (1) Acute on chronic heart failure with reduced ejection fraction and diastolic dysfunction: Alok Huff is a 43 y/o male with recurring acute on chronic congestive heart failure with numerous admissions for same, Non-ischemic cardiomyopathy, HTN emergency, gastritis, cardiac defribillator in place, DM insulin/oral, MARIELENA, non-compliance, fatty liver, morbid obesity, who presented to [facility] ED for confusion. Confusion same as prior Acute exacerbations of underlying CHF, chronic resp failure, non-compliance. Multifactorial from non-compliance with BiPAP at night promoting hypoxia and also non-compliance with medication/diet for CHF which caused pulmonary edema leading to diminished capacity to ventilate and contributing to hypoxia/confusion. Improved with Oxygen here. Patient doing well this morning although still seems a bit confused. Relate a story similar to the one he presented to the ED physicians except he also endorsed strokelike symptoms including weakness on his left side which he said was evaluated by the ED physicians. This was noted by the ED physician's note however he said that it is not a consistent exam findings, and extremely mild in nature he did not believe that these were from a stroke or TIA. Today during the physical exam I was unable to reproduce symptoms findings as well. As mentioned above patient was recently discharged for heart failure exacerbation, and was noncompliant with his medications taking torsemide twice daily instead of 3 times daily and lifestyle consuming high sodium foods including daily weights. Patient has a history of numerous hospitalizations for similar symptoms which were all deemed to be heart failure exacerbations, this does not appear to be is that his previous admission on 716 when he required verification rep consultation I believe his current symptomatology likely stems from CHF exacerbation. - Weight is up to 166.6kg in ED from discharge one week ago of 153.7kg (admission weight from that visit was 163.5. . -Will give Lasix 40mg IV on floor. Hold torsemide in the meantime. -C/w Spironalactone home dose 50mg qAM, 25qPM as mortality benefit and to encourage compliance with habitual routine while in hospital. -Cr baseline 1.16, Room for aggressive diuresis -c/w home toprol, entresto, imdur, received ASA 324mg PO in Ed, c/w home ASA dose daily. -Monitor Is and Os/daily weights -Monitor on tele -Low salt diet -Provide education -prn o2 Most important hospital treatment will be supplemental O2, diuresis to promote better oxygenation to brain...and patient education. FENGI: Heart healthy/DM DVT ppx: Heparin SQ Code: Full Dispo: PCU/tele, full admit (2) Obstructive sleep apnea: Prior admissions the patient was having hypoxia and reduced consciousness. The patient is noncompliant with his CPAP machine at home saying that he "blows off. He has not had similar complaints during prior admissions. 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 - continue BiPAP 31/10 nightly and follow-up with the [facility] outpatient sleep clinic. Appears to tolerate in hospital. Unsure of underlying issues with settings/machine at home or if lack of effort to comply. (3) Hypertensive emergency: Received 2 doses of labetalol 10 mg IV in ED received another dose of labetalol 10 mg was 4 with resolution of his symptoms. Currently the patient is normotensive on his home regimen with his BP of 138/92. His exacerbations last night was most likely secondary to poor compliance and not taking his own blood pressure medications. During his hospitalization the patient required extensive education on his diabetes self-care management etc. (4) Hypertension: -Continue home meds, now normotensive -Low salt diet (5) Tachycardia: Has resolved since arrival most likely was secondary to hypoxic. -Currently monitored on telemetry, is no evidence of neurological stepdown feels general medical floors (6) DVT prophylaxis: seemed to do well on Heparin SQ from prior chart review and will continue (7) AICD (automatic cardioverter/defibrillator) present: noted in history, no reports of firing. (8) Diabetes mellitus type 2 with complications: There seems to have been a breakdown from discharge to admission. Does not appear to be on any home medications currently. He was advised to follow up with PCP for such after discharge, but I'm not able to verify if this happened. His last Hgb A1C was 09/12/19 from memory from cumbersome chart review, and was 7.9. Arguably his numerous time spent in the inpatient setting might have benefited improved glycemic control, but he's been on sliding scale from some prior visits. He would most likely need basal coverage and should be on basal coverage at home. - Lantus 20 units BID CF 15, Carb ratio 5 -Well controlled on his regimen will continue. (9) Chronic respiratory failure: Currently on 2L 94 % in ED (10) COPD (chronic obstructive pulmonary disease): C/w Breo Formulary substitute 1 inh inhalation qAM (11) Poor intravenous access: -Was worked up for at most recent hospitalization -May need central line for access (12) Noncompliance: Unfortunately unable to thrive outside of structured setting as numerous admissions monthly over the summer. Will continue to be diligent to provide education and to help with ability to lessen admissions to promote better quality of life. Numerous exacerbations from non-compliance raises grave concern for accelerated mortality. -Appreciate social work consult to assist with medication he has (13) NICM (nonischemic cardiomyopathy): Admission and Anticipated Discharge Date Admission Date: October 15, 2019 Results & Data Results & Data ([facility]) Vital Signs (Past 12 Hours) Vital Signs Temp Pulse Pulse Resp BP Pulse Ox 10/16/19 07:44 36.6 C 77 18 146/109 H 99 10/16/19 03:12 37.0 C 66 21 127/90 95 10/16/19 00:00 71 10/15/19 23:58 36.6 C 92 H 22 142/84 H 94 (1) Hypertension Hypertension type: unspecified Qualified Code(s): I10 - Essential (primary) hypertension (2) COPD (chronic obstructive pulmonary disease) COPD type: unspecified COPD Qualified Code(s): J44.9 - Chronic obstructive pulmonary disease, unspecified
[2019-10-16] MEDS: INSULIN ASPART 100 UNITS/ML 3 ML PEN SC SCH ×2 (08:50→12:44)
[2019-10-16] MEDS: DICLOFENAC SOD 1% GEL 100 GM TUBE EXT SCH ×2 (08:58→13:59)
[2019-10-16] MEDS: ISOSORBIDE MONO EXTENDED REL 30 MG TABCR PO SCH (09:00)
[2019-10-16] MEDS: INSULIN GLARGINE SOLOSTAR 100 UNITS/ML 3 ML PEN SC SCH (09:01)
[2019-10-16] MEDS: METOPROLOL SUCC 50MG EXT REL TAB PO SCH (09:01)
[2019-10-16] MEDS: SPIRONOLACTONE 25 MG TAB PO SCH (09:04)
[2019-10-16] MEDS: SACUBITRIL-VALSARTAN 97-103 MG TAB PO SCH (09:06)
[2019-10-16] MEDS: FLUTICASONE/VILANTEROL 200/25MCG 14 PUFFS/INHALER INH SCH (09:07)
[2019-10-16] MEDS: TORSEMIDE 20 MG TAB PO SCH ×2 (11:42→12:51)
[2019-10-16] MEDS: ASPIRIN 81 MG ECTAB PO SCH (11:42)
--- NOTE | 2019-10-16 14:36 | Discharge Summary ---
Date of Service October 16, 2019 Admission HPI Per Admitting Provider Caveat: History Limited by - Vague/unreliable historian. Alok Huff is a 43 y/o male with recurring acute on chronic congestive heart failure with numerous admissions for same, Non-ischemic cardiomyopathy, HTN em ergency, gastritis, cardiac defribillator in place, DM insulin/oral, MARIELENA, non- compliance, fatty liver, morbid obesity, who presented to [facility] ED for confusion and shortness of breath. He notes that he went to lay down in bed around 12am and had a 45 minute episode of reduced consciousness. He notes his daughter and were attempting to arouse him for 45 minutes. He notes that he felt short of breath and confused. EMS was then contacted. Need for EMS history was different for EMS (Chest pain and dizziness) that was sharp and took 2 NTG SL without relief. He mentions no chest pain to me or this as reason. He notes left shoulder pain which is worse with abduction and same as prior musculoskeletal pain. He noted to ED provider that he's had left sided weakness. CT Head was performed with no acute intracranial findings. He notes to me he has left shoulder and left ankle pain which he has had since 2019. He currently reports no weakness unilaterally. He notes that he's been taking Torsemide BID and has been compliant daily...recent hospital discharge one week ago shows this should be TID dosage. He notes for dinner tonight he ate an [employer] hoagie/sub. He states that his lower extremity edema has worsened and it was hard for him to get his right shoe on for transport here. He notes that he hasn't been compliant with BiPAP for his MARIELENA at night. He notes he cannot tolerate pressure settings. He denies that it pops off. He states that he isn't allowed to change settings on machine. In the ED, he improved with supplemental O2, ASA 324mg PO, Labetalol 10mg IV x 2 doses for HTN urgency. Which has same prior elevated levels on presentation to ED that are well controlled in the inpatient setting after initial treatment of HTN crisis. He was recently hospitalized with discharge last week. He has an unfortunate number of admission and inpatient days from chart review dating back to 02/2019 for same symptoms/similar story. Admission Exam Per Admitting Provider Constitutional: cooperative and comfortable; no acute distress super obese, drowsy but arises when lights turned on and easily with voice Eyes: PERRL, conjunctivae normal, anicteric sclerae ENMT: external ear and nose normal, oropharynx normal Neck: normal visual inspection large neck Respiratory: able to speak in complete sentences; no respiratory distress and does not use accessory muscles Auscultation: + diminished lung sounds (anterior bases; poor respiratory effort) Cardiovascular: Rate/Rhythm: regular rhythm and + tachycardic Extremities: + edema (bilateral legs 3+ pitting) Gastrointestinal (Abdomen): Percussion/Palpation: abdomen nontender, no guarding and abdomen not rigid Musculoskeletal: Head/Neck/Chest: normocephalic and head atraumatic Skin: warm and dry Neurologic: CN's II-XI intact bilaterally and moves all extremities; no focal motor deficits and not confused Speech / Cognition: + abnormal speech (slightly slurred/slow, but was just sleeping without BiPAP, no facial droop) Psychiatric: Orientation: oriented x 3 Insight: + poor insight Judgement: + poor judgement drowsy, easily arousable. Principal Diagnosis Acute on chronic respiratory failure with hypoxia secondary to acute on chronic congestive heart failure complicated by morbid obesity, COPD, diabetes type 2 and noncompliance. Discharge Exam General: Morbidly obese individual lying in bed in no acute distress appearing tired HEENT: Normocephalic atraumatic Neck: Normal to visual inspection Cardiac: See attending attestation Respiratory: no distress, on room air, significant improvement GI: Distended protuberant abdomen, nontender, no guarding, no rebound MSK: Moves all extremities 1 was not able to appreciate any weakness in the left side Skin: Cool dry intact Neuro: Alert and oriented a bit tangential at times Psych: Calm and cooperative Discharge Data Allergies Allergy/AdvReac Type Severity Reaction Status Date / Time ceftriaxone Allergy Severe SHORTNESS Verified 10/15/19 02:04 OF BREATH lidocaine Allergy Severe SHORTNESS Verified 10/15/19 02:04 OF BREATH, diaphoretic, hives procaine Allergy Severe SHORTNESS Verified 10/15/19 02:04 OF BREATH, diaphoretic, hives amoxicillin Allergy Intermediate HIVES/FACIAL Verified 10/15/19 02:04 SWELLING clavulanic acid Allergy Intermediate HIVES/FACIAL Verified 10/15/19 02:04 SWELLING lisinopril Allergy Intermediate HIVES Verified 10/15/19 02:04 acetaminophen AdvReac Mild NAUSEA Verified 10/15/19 02:04 albuterol AdvReac Mild proair Verified 10/15/19 02:04 "trouble taking breaths" Consultations 10/15/19 02:41 ED Decision to Admit Stat 10/15/19 04:52 Consult Case Management - Discharge Planning Routine Ordered Studies 10/15/19 01:10 CT head/brain wo con Urgent Hospital Course (1) Acute on chronic heart failure with reduced ejection fraction and diastolic dysfunction: Alok Huff is a 43 y/o male with recurring acute on chronic congestive heart failure with numerous admissions for same, Non-ischemic cardiomyopathy, HTN emergency, gastritis, cardiac defribillator in place, DM insulin/oral, MARIELENA, non-compliance, fatty liver, morbid obesity, who presented to [facility] ED for confusion. Confusion same as prior Acute exacerbations of underlying CHF, chronic resp failure, non-compliance. Multifactorial from non-compliance with BiPAP at night promoting hypoxia and also non-compliance with medication/diet for CHF which caused pulmonary edema leading to diminished capacity to ventilate and contributing to hypoxia/confusion. Improved with Oxygen here. Patient doing well this morning although still seems a bit confused. Relate a story similar to the one he presented to the ED physicians except he also endorsed strokelike symptoms including weakness on his left side which he said was evaluated by the ED physicians. This was noted by the ED physician's note however he said that it is not a consistent exam findings, and extremely mild in nature he did not believe that these were from a stroke or TIA. Today during the physical exam I was unable to reproduce symptoms findings as well. As mentioned above patient was recently discharged for heart failure exacerbation, and was noncompliant with his medications taking torsemide twice daily instead of 3 times daily and lifestyle consuming high sodium foods including daily weights. 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 Patient was aggressively diuresed, and given supportive care. His home medications were continued he made significant improvement overnight and his breathing, and subjective symptoms. He was deemed medically stable for discharge and subsequently discharged. Prior to discharge he was given extensive education about the importance of nutrition, exercise, and taking his medicines appropriately as prescribed. CHULA: Heart healthy/DM DVT ppx: Heparin SQ Code: Full Dispo: PCU/tele, full admit (2) Obstructive sleep apnea: Prior admissions the patient was having hypoxia and reduced consciousness. The patient is noncompliant with his CPAP machine at home saying that he "blows off. He has not had similar complaints during prior admissions. 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 Patient was maintained on BiPAP 31/10 nightly and should follow-up with [facility] as the outpatient sleep clinic. He was able to tolerate his CPAP/BiPAP while in the hospital, there could be some underlying issues in the setting or machine. (3) Hypertensive emergency: Received 2 doses of labetalol 10 mg IV in ED received another dose of labetalol 10 mg was 4 with resolution of his symptoms. Currently the patient is normotensive on his home regimen with his BP of 138/92. His exacerbations last night was most likely secondary to poor compliance and not taking his own blood pressure medications. During his hospitalization the patient required extensive education on his diabetes self-care management etc. (4) Hypertension: -Continued home meds -Low salt diet (5) Tachycardia: Has resolved since arrival most likely was secondary to hypoxic. -Has been asymptomatic since admission (6) DVT prophylaxis: Received heparin SQ while hospitalized (7) AICD (automatic cardioverter/defibrillator) present: noted in history, no reports of firing. (8) Diabetes mellitus type 2 with complications: Patient was not on any home medications prior to admission. Well in the hospital and started on Lantus 20 units twice daily which achieved adequate sugar control, recommend he continue his outpatient we will defer to PCP for management of diabetes.. His last hemoglobin A1c from 731/20 was 7.9. -Recommend patient follow-up with PCP on discharge -PCP to consider Lantus 20 units twice daily with sliding scale for meals correction factor 15 carb ratio 5. (9) Chronic respiratory failure: Resolved (10) COPD (chronic obstructive pulmonary disease): C/w Breo Formulary substitute 1 inh inhalation qAM (11) Poor intravenous access: (12) Noncompliance: I spent an extensive amount of time educating the patient on the use of complying with his medication exercise and diet regimen. I explained to him the serious consequences if he continues to fail to adhere to our recommendations. I used the teach back method and explained in detail the instructions for the patient regarding nutrition, exercise, and medication. I then asked the patient to repeat these instructions back to me. He verbalized understanding and was able to repeat the instructions back to me. I believe this patient will benefit from frequent follow-up with an outpatient PCP to monitor his compliance diet, exercise, and medications. (13) NICM (nonischemic cardiomyopathy): Total Time Total Time Spent Total Time Spent (In Minutes): <30 Discharge Plan Discharge Items Patient Disposition: Home - Self-Care Reason For Visit: ACUTE CHF Discharge Diagnosis: Acute on chronic respiratory failure with hypoxia secondary to acute on chronic congestive heart failure complicated by morbid obesity, COPD, diabetes type 2 and noncompliance. Activity: Resume your previous activity Non-emergency contact: Primary Care Provider Call non-emergency contact if: you have any medication questions and your symptoms worsen Follow-up/Referrals: Poornima Rocha MD [Primary Care Provider] - 10/22/19 1:20 pm () Diet: Carb Consistent or DM2, Heart Healthy and Low Fat Addtl Attending Provider Instructions: Care instructions: You were admitted to [facility] for treatment of congestive heart failure exacerbation. Your current presentation is most likely due to a combination of events. The loss of consciousness was likely due to hypoxia (lack of oxygen to the brain) brought on by not using your CPAP machine. To prevent this from reoccurring we strongly recommend that you use your CPAP machine as prescribed by a physician. If you are unable to tolerate the CPAP machine you should make an appointment with your physician to have the settings adjusted, in the interim we recommend you use the machine as prescribed. Your congestive heart failure exacerbation was likely due to not taking your medications as prescribed and consuming salty foods. We strongly recommend that you take the medications as prescribed and avoid consuming salty foods. Prior to discharge I reviewed salty foods review and we discussed nutrition. You want to avoid foods such as daily meats, pickled foods, smoked foods, potato chips, pretzels, and most other snack foods. We strongly recommend that you substitute these foods with vegetables such as carrots, broccoli, cauliflower, or lettuce. We recommended that you avoid consuming excessive amounts of potatoes, sweet potatoes, and corn. Although these are vegetables in the traditional sense they contain a lot of excess sugar and in large amounts are not healthy for you. We also discussed the importance of exercise. We discussed beginning with baby steps such as a small walk around the block for 5 to 10 minutes and slowly increasing intensity and duration. Finally we reviewed her medications. You are to take: Torsemide 40 mg 3 times per day breakfast 1 with lunch and 1 with dinner Spironolactone 50 mg in the morning and 25 mg in the evening Metoprolol 100 mg 1 in the morning and 1 in the evening Aspirin 81 mg 1 in the morning Fluticasone inhaler 1 puff in the morning Isosorbide mononitrate 30 mg 1/day Entresto 1 tab 1 in the morning and 1 in the evening If you have any questions regarding the medication regimen please feel free to contact us A discharge summary will be sent to your primary care physician to ensure continuity of care. Please bring this discharge summary with you to your next office appointment so that your provider can review it at that time. Follow-up appointments: - Keep all your follow-up appointments as already scheduled. If you cannot make an appointment, notify your provider. - Please call to request a follow-up appointment with your primary care physician within one week of discharge. Please let us know if you are unable to obtain an appointment Medications: - Your medication list has been reviewed and reconciled upon discharge to ensure accuracy and continuity of care. - You are provided with a list of all your current medications at this time. Please review this list closely and make note of any changes. - Please take all of your medications exactly as prescribed. - Tell your primary care provider if you cannot afford your medications. - Call your primary care provider if you are having any side effects or any other problems. - Call your primary care provider before taking any over the counter medications or supplements, including herbals and vitamins, because some of these may interact with your current medications and/or make your symptoms worse. Symptoms: Please call your primary care provider for symptoms including, but not limited to: fevers (temperatures greater than 100.4), chills, intractable nausea or vomiting, diarrhea, rash, shortness of breath, bleeding, pain, or if you experience any worsening of the symptoms that brought you to the hospital. For EMERGENCY and VERY SERIOUS health-related issues, such as chest pain, shortness of breath, or sudden onset of the symptoms that brought you to the hospital, you may need to call 911 or go directly to the Emergency Room It has been our privilege to take care of you during your hospital stay. And Above All Else Feel Better! Best Wishes, Urbano Burr MD PGY2 Resident, Family & Community Medicine [facility] at [facility] - [address], [address] MC: [address] [place] [address] Pending Studies at Discharge: No Stand-Alone Forms: [facility], Smoking Cessation Medications and DC Order Prescriptions: New diclofenac sodium [Voltaren] 1 % Gel 4 g EXT QID 30 Days RF: 0 Continued (DME) lancets [OneTouch Delica Plus Lancet] 30 gauge misc See Dose Instructions .ROUTE .MEDSUPPLY Qty: 400 RF: 3 (DME) OneTouch Verio test strips strip See Dose Instructions .ROUTE .MEDSUPPLY Qty: 400 RF: 3 (DME) Oxygen Home Liters Per Minute See Rx Instructions .ROUTE .MEDSUPPLY Qty: 1 RF: 5 aspirin [Aspirin Low Dose] 81 mg tablet,delayed release (DR/EC) 81 mg PO QAM RF: 0 nitroglycerin [Nitrostat] 0.4 mg tablet, sublingual 0.4 mg sublingual UD PRN (Reason: Chest Pain) RF: 0 budesonide 0.25 mg/2 mL suspension for nebulization 0.25 mg inhalation Q12 PRN (Reason: Shortness Of Breath Or Wheezing) RF: 0 Breo Ellipta 200-25 mcg/dose blister with device 1 inh INHALATION QAM RF: 0 gabapentin 100 mg capsule 300 mg PO DAILY Qty: 30 RF: 0 spironolactone 25 mg tablet 25 mg PO QPM RF: 0 isosorbide mononitrate 30 mg tablet extended release 24 hr 30 mg PO DAILY RF: 0 esomeprazole magnesium 20 mg Tablet,Delayed Release (Dr/Ec) 20 mg PO BID RF: 0 cholecalciferol (vitamin D3) [Vitamin D3] 50 mcg (2,000 unit) Tablet 50 mcg PO BID RF: 0 metoprolol succinate 100 mg tablet extended release 24 hr 100 mg PO BID Qty: 60 RF: 0 Entresto 97-103 mg Tablet 1 tab PO BID Qty: 60 RF: 0 spironolactone 25 mg tablet 50 mg PO QAM 30 Days Qty: 90 RF: 0 potassium chloride [Klor-Con M20] 20 mEq tablet,ER particles/crystals 20 meq PO BID Qty: 0 RF: 0 torsemide 20 mg tablet 40 mg PO TID Qty: 180 RF: 0 Discharge Orders: Discharge Order (Routine); Ordered 10/16/19 Ordered By: Urbano Talamantes/Other Patient Handouts: Heart Failure: Tracking Your Weight, Heart Failure: Being Active, Diabetes Exercise Get Started, Heart Failure Making Changes to Your Diet, Diabetes Exercise Plan, Diabetes Carbs Fats Protein Admission Data Admit Date/Time: 10/15/19 04:09 Attending Provider: Ananth Soto Admit Provider: Kye García Primary Care Provider: Poornima Rocha Other Providers: Noé Jaquez Other Interventions: Discharge Summary Assessment (RN) Last Done: 10/16/19 16:17 Supervising Physician Co-Signing Physician Notes I personally examined the patient and verified all caraballo points of history and exam, discussed case, and agree with decision making with Dr Burr. feeling at baseline up to going home. reiterated importance of taking meds as Rx'd and of sticking to low Na diet. headache better vitals noted nad heent nc at mmm lungs overall cta b/l no r/r/w good effort skin no rashes no pallor or icterus acute on chronic systolic CHF (causing acute hypoxia to worsen) - now improved. stable for home. discussed again critical importance of Na restriction (when you eat things with sodium, your lungs will flood and you can't breathe) and critical importance of sticking with meds as Rxd otherwise as above Resident Activity Tracking Resident Involvement: Resident Care Provided Care Provided: Adult Hospital Medicine
--- NOTE | 2019-10-16 17:50 | Billing Data ---
Date of Service October 16, 2019 Coding Level of Care Code D/C Day Management <30 mins
--- NOTE | 2019-10-19 22:02 | Billing Data ---
Date of Service October 19, 2019 Coding Level of Care Code 94637 Initial Inpt Care Lvl 3
== END 2019-10-16 16:18 | disposition home or self-care (01) ==
LOC: ED 00:57 → INTOOBSV 04:09 → 2E 04:09 → SUATTDRO 04:09 → 2E 04:27

== ENCOUNTER 2019-10-31 19:02 | Inpatient (IN) ==
[2019-10-31] MEDS ORDERED: ASPIRIN CHEW 324 MG PO STA (19:13)
[2019-10-31] MEDS ORDERED: LORazepam 1 MG/2 ML VIAL IV STA (19:13)
[2019-10-31] MEDS ORDERED: NITROGLYCERIN SL 0.4 MG/TAB TAB ONE (19:15)
[2019-10-31] MEDS: NITROGLYCERIN SL 0.4 MG/TAB TAB SL PRN ×3 (19:15→19:58)
[2019-10-31] MEDS ORDERED: ASPIRIN CHEW 324 MG ONE (19:16)
[2019-10-31 19:35] LABS: Basophils # (auto) 0.02 K/uL (0-0.2); Basophils % (auto) 0.1 %; Eosinophils # (auto) 0.14 K/uL (0-0.5); Hematocrit (blood only) 44.3 % (42-52); Hemoglobin 14.4 g/dL (14.0-18.0); Immature Granulocytes # (auto) 0.07 K/uL (0.00-0.02); Immature Granulocytes % (auto) 0.5 %; Lymphocytes # (auto) 2.16 K/uL (1.2-3.4); Mean Corpuscular Hemoglobin 27.1 pg (25-34); Mean Corpuscular Hgb Conc 32.5 g/dL (32-36); Mean Corpuscular Volume 83.3 fL (80-100); Mean Platelet Volume 9.7 fL (7.4-10.4); Monocytes # (auto) 0.76 K/uL (0.11-0.59); Monocytes % (auto) 5.6 %; Neutrophils # (auto) 10.38 K/uL (1.4-6.5); Neutrophils % (auto) 76.8 %; Platelet Count 200 K/uL (130-400); RDW Coefficient of Variation 18.1 % (11.5-14.5); RDW Standard Deviation 55.1 fL (36.4-46.3); Red Blood Count 5.32 M/uL (4.7-6.1); White Blood Count 13.53 K/uL (4.8-10.8)
[2019-10-31 19:36] LABS: Base Excess VBG -2.7 mEq/L; pH VBG 7.3 (7.36-7.41)
[2019-10-31 19:43] LABS: iSTAT Creatinine 0.9 mg/dl (0.6-1.3); iSTAT Ionized Calcium 1.15 mmol/l (1.12-1.32); iSTAT Potassium 3.9 mmol/L (3.3-5.0)
--- NOTE | 2019-10-31 19:45 | Emergency Department Note ---
History of Present Illness General Chief complaint: Shortness of Breath/Dyspnea Stated complaint: sob Time Seen by Provider: 10/31/19 19:10 History of Present Illness Provider complaint: Shortness of breath Onset (ago): day(s) 1 Location: chest Radiation: non-radiation Severity: severe Pain Consistency: + constant Maximum Pain Intensity: 10 Current Pain Intensity: 10 Quality: + sharp Relieved By: + none Exacerbated By: + none Associated symptoms: + chest pain and + shortness of breath 43-year-old male presents emergency department with difficulty breathing. Difficulty breathing began today. Patient has a history of noncompliance and CHF. Patient denies any drug use or exposure to any chemicals. Home Medications Home Medications Medication Instructions Recorded Confirmed Type aspirin 81 mg tablet,delayed 81 mg PO QAM 09/17/18 10/31/19 History release nitroglycerin [Nitrostat] 0.4 mg SUBLINGUAL UD PRN 04/24/19 10/31/19 History Breo Ellipta 1 inh INHALATION QAM 09/21/19 10/31/19 History budesonide 0.25 mg INHALATION Q12 PRN 09/21/19 10/31/19 History cholecalciferol (vitamin D3) 50 mcg PO BID 10/04/19 10/31/19 History [Vitamin D3] esomeprazole magnesium 20 mg PO BID 10/04/19 10/31/19 History isosorbide mononitrate 30 mg PO QAM 10/04/19 10/31/19 History Entresto 1 tab PO BID #60 tab 10/07/19 10/31/19 Rx metoprolol succinate 100 mg PO BID #60 tab 10/07/19 10/31/19 Rx potassium chloride [Klor-Con M20] 20 meq PO BID #0 tab 10/07/19 10/31/19 Rx torsemide 40 mg PO TID #180 tab 10/07/19 10/31/19 Rx diclofenac sodium [Voltaren] 4 g EXT QID 30 Days g 10/16/19 10/31/19 Rx dulaglutide [Trulicity] 1.5 mg SUBCUT WK 10/31/19 10/31/19 History gabapentin [Neurontin] 300 mg PO DAILY 10/31/19 10/31/19 History spironolactone [Aldactone] See Rx Instructions .ROUTE .COMPLEX 10/31/19 10/31/19 History Allergies Allergy/AdvReac Type Severity Reaction Status Date / Time ceftriaxone Allergy Severe SHORTNESS Verified 10/30/19 13:17 OF BREATH lidocaine Allergy Severe SHORTNESS Verified 10/30/19 13:17 OF BREATH, diaphoretic, hives procaine Allergy Severe SHORTNESS Verified 10/30/19 13:17 OF BREATH, diaphoretic, hives amoxicillin Allergy Intermediate HIVES/FACIAL Verified 10/30/19 13:17 SWELLING clavulanic acid Allergy Intermediate HIVES/FACIAL Verified 10/30/19 13:17 SWELLING lisinopril Allergy Intermediate HIVES Verified 10/30/19 13:17 acetaminophen AdvReac Mild NAUSEA Verified 10/30/19 13:17 albuterol AdvReac Mild proair Verified 10/30/19 13:17 "trouble taking breaths" Past Med/Surg History Medical History Chronic respiratory failure 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 Underwent procedure without any complications monitored over night and discharged home. Obstructive sleep apnea SOB (shortness of breath) Umbilical hernia Vitamin D insufficiency Previously deficient, taking Vit D supplementation Surgical History History of carpal tunnel surgery History of cholecystectomy S/P tonsillectomy Family History Father , age 57 of an AR. Heart disease Myocardial infarction Mother , age 67 of a ruptured neck vessel Sudden Other Depression Lung disease No pertinent family history Denies family history of Ovarian cancer Prostate cancer Breast cancer Colorectal cancer Social History Smoking Status: Former smoker Age Started Using Tobacco: 14; Age Quit Using Tobacco: 18; Cigarettes Per Day: 40-50; Second Hand Exposure: No; Hx Alcohol Use: No Hx Substance Use: No Preferred Language: Yoruba Communication Ability: Effective Visual Impairment: No Limitations Hearing Ability: Normal Pay Station Collector Required: No Beliefs That Will Affect Care: None marital status: Current Living Situation: Spouse current occupational status: unemployed How many Children do You have: 0 Feels Safe at Home: Yes Safety Concerns: Feels Safe At This Time Childhood Exposure to Second-Hand Smoke: Yes Dental Care, Regularly: Yes Physical Activity Frequency: Does not Exercise Review of Systems Other (Unable to do due to severe respiratory distress.) Physical Exam Vital Signs Vital Signs - 24 hr 10/31/19 19:07 10/31/19 19:19 10/31/19 19:35 Temperature 37.1 C Temperature Source Axillary Pulse Rate 140 H 140 H 135 H Pulse Rate from SpO2 Sensor 135 H Respiratory Rate 37 H 26 H 39 H Respiratory Effort / Characteristics Spontaneous Accessory Muscle Use Labored Short of Breath SOB on Exertion Spontaneous Accessory Muscle Use Respiratory Depth Deep Respiratory Pattern Rapid/Deep Tachypnea Blood Pressure 176/153 H 197/154 H Blood Pressure [Left Arm] Blood Pressure Mean 160 170 Blood Pressure Mean [Left Arm] Blood Pressure Position Sitting Pulse Oximetry 98 97 95 Oxygen Delivery Method BiPAP BiPAP Oxygen Flow Rate 50 Fraction of Inspired Oxygen 50 Sepsis Recent Fever Within 48 Hours No Sepsis New/Unexplained Change in Mental Status N/A Sepsis Action Taken by Nursing Previously Notified End-Tidal CO2 10/31/19 19:53 10/31/19 20:02 10/31/19 20:15 Temperature Temperature Source Pulse Rate 140 H 137 H Pulse Rate from SpO2 Sensor 139 H 137 H Respiratory Rate 48 H 39 H Respiratory Effort / Characteristics Respiratory Depth Respiratory Pattern Blood Pressure 206/161 H Blood Pressure [Left Arm] 197/124 H Blood Pressure Mean 186 Blood Pressure Mean [Left Arm] 148 Blood Pressure Position Pulse Oximetry 93 92 Oxygen Delivery Method BiPAP Oxygen Flow Rate 50 Fraction of Inspired Oxygen Sepsis Recent Fever Within 48 Hours Sepsis New/Unexplained Change in Mental Status Sepsis Action Taken by Nursing End-Tidal CO2 10/31/19 20:20 10/31/19 20:22 10/31/19 20:26 Temperature Temperature Source Pulse Rate 138 H 135 H 138 H Pulse Rate from SpO2 Sensor 138 H 134 H 138 H Respiratory Rate 27 H 41 H 37 H Respiratory Effort / Characteristics Respiratory Depth Respiratory Pattern Blood Pressure 173/133 H 186/144 H Blood Pressure [Left Arm] Blood Pressure Mean 159 163 Blood Pressure Mean [Left Arm] Blood Pressure Position Pulse Oximetry 91 92 92 Oxygen Delivery Method BiPAP Oxygen Flow Rate Fraction of Inspired Oxygen Sepsis Recent Fever Within 48 Hours Sepsis New/Unexplained Change in Mental Status Sepsis Action Taken by Nursing End-Tidal CO2 10/31/19 20:30 10/31/19 20:31 10/31/19 20:36 Temperature Temperature Source Pulse Rate 140 H 141 H 139 H Pulse Rate from SpO2 Sensor 140 H 141 H 139 H Respiratory Rate 22 35 H 34 H Respiratory Effort / Characteristics Respiratory Depth Respiratory Pattern Blood Pressure 209/128 H Blood Pressure [Left Arm] Blood Pressure Mean 150 Blood Pressure Mean [Left Arm] Blood Pressure Position Pulse Oximetry 89 L 91 89 L Oxygen Delivery Method Oxygen Flow Rate Fraction of Inspired Oxygen Sepsis Recent Fever Within 48 Hours Sepsis New/Unexplained Change in Mental Status Sepsis Action Taken by Nursing End-Tidal CO2 10/31/19 20:40 10/31/19 20:42 10/31/19 20:45 Temperature Temperature Source Pulse Rate 133 H 133 H 133 H Pulse Rate from SpO2 Sensor 133 H 133 H 133 H Respiratory Rate 30 H Respiratory Effort / Characteristics Respiratory Depth Respiratory Pattern Blood Pressure 181/92 H Blood Pressure [Left Arm] Blood Pressure Mean 136 Blood Pressure Mean [Left Arm] Blood Pressure Position Pulse Oximetry 90 87 L 89 L Oxygen Delivery Method Oxygen Flow Rate Fraction of Inspired Oxygen Sepsis Recent Fever Within 48 Hours Sepsis New/Unexplained Change in Mental Status Sepsis Action Taken by Nursing End-Tidal CO2 10/31/19 20:46 10/31/19 20:48 Temperature Temperature Source Pulse Rate 128 H Pulse Rate from SpO2 Sensor 132 H Respiratory Rate 24 Respiratory Effort / Characteristics Respiratory Depth Respiratory Pattern Blood Pressure 170/128 H Blood Pressure [Left Arm] Blood Pressure Mean 138 Blood Pressure Mean [Left Arm] Blood Pressure Position Pulse Oximetry 93 86 L Oxygen Delivery Method Oxygen Flow Rate Fraction of Inspired Oxygen 100 Sepsis Recent Fever Within 48 Hours Sepsis New/Unexplained Change in Mental Status Sepsis Action Taken by Nursing End-Tidal CO2 58 Physical Exam GENERAL: Patient appears diaphoretic and distressed. Patient is on CPAP. EYES: Conjunctivae and EOM are normal. Pupils are equal, round, and reactive to light. Right eye exhibits no discharge. Left eye exhibits no discharge. No scleral icterus. NECK: Normal range of motion. Neck supple. No JVD present. No spinous process tenderness present. No carotid bruit present. No rigidity. No tracheal deviation and normal range of motion present. No Brudzinski's sign and no Kernig's sign noted. CV: Tachycardic rate, regular rhythm, normal heart sounds and intact distal pulses. There is no peripheral edema. Palpable radial pulses bue. PULM/CHEST: Respiratory distress with rales bilaterally. ABD: The abdomen is soft and obese. MUSC/SKEL: 2+ pitting edema of the bilateral lower extremities NEURO: Motor and sensation grossly intact. Procedures Intubation Time out performed: Yes sedative: Etomidate Mg Given: 40 paralytic: Rocuronium Mg Given: 100 Laryngoscope: fiber optic video scope (Light scope) ET Tube Size: 7.5 ET Tube Uncuffed: Yes Tube Placement Confirmation: visualized tube passing through cords, equal breath sounds bilaterally, no breath sounds over epigastrium and confirmation by capnometry Patient Tolerated Procedure: well Intubation Complications: none Course Course 1909: The patient was evaluated in room B1. A complete history and physical exam was performed. Patient was seen in the resuscitation bay. nurse reviewer and pulse ox were immediately applied to the patient and he was found to be 89% on room air. Patient was continued on BiPAP 12/6 his previous settings. Cardiac monitoring: An order was placed for continuous cardiac monitoring. The monitor shows a rate of 135 with sinus tachycardia rhythm EMR reviewed. Patient has a history of CHF, COPD, AICD placement, poor intravenous access, and noncompliance with medications. Patient was seen in the emergency department 5 days ago. At that time he had a CT of the chest and CT of the abdomen which were negative. 2011: Chest x-ray shows cardiomegaly with pulmonary edema. Patient remains hypertensive and tachycardic. 3 sublingual nitroglycerin have not significantly improved his blood pressure. Patient will be started on nitroglycerin drip. Patient is continued on BiPAP. Discussed with ICU Calvin FROD who states he will evaluate the patient. [facility] hospitalist will admit the patient Dr. Goode notified. 2049: Nitroglycerin drip was titrated up with the patient had no significant clinical improvement. Decision was made to intubate the patient. See procedure note. Patient was admitted to the ICU. Administered Medications Heparin Sodium (Porcine) (Heparin Sod 5,000 Unit/0.5 Ml Vial) 7,500 units SQ Q8 SUKHWINDER Stop: 11/30/19 21:59 Last Admin: 10/31/19 22:02 Dose: 7,500 units Documented by: [id number] Cosigned by: [id number] Nitroglycerin/Dextrose (Nitroglycerin/D5w 100 Mcg/Ml) 250 mls @ 3 mls/hr IV .Q24H [facility]; Protocol Stop: 11/30/19 19:59 Last Titration: 10/31/19 23:47 Dose: 5 mcg/min, 3 mls/hr Documented by: [id number] Admin: 10/31/19 22:04 Dose: 10 mcg/min, 6 mls/hr Documented by: [id number] Cosigned by: [id number] Titration: 10/31/19 22:04 Dose: 10 mcg/min, 6 mls/hr Documented by: [id number] Cosigned by: [id number] Admin: 10/31/19 20:12 Dose: 10 mcg/min, 6 mls/hr Documented by: [id number] Cosigned by: [id number] Famotidine 20 mg/ Syringe 5 mls @ 2.5 mls/min IV Q12H SUKHWINDER Stop: 11/30/19 21:59 Last Admin: 10/31/19 22:01 Dose: 2.5 mls/min Documented by: [id number] Fentanyl Citrate (Fentanyl Drip) 1,250 mcg in 250 mls @ 20 mls/hr IV .[id number] PRN; Protocol PRN Reason: Pain or Agitation Stop: 11/14/19 22:30 Last Titration: 10/31/19 23:47 Dose: 100 mcg/hr, 20 mls/hr Documented by: [id number] Cosigned by: [id number] Admin: 10/31/19 22:36 Dose: 25 mcg/hr, 5 mls/hr Documented by: [id number] Cosigned by: [id number] Propofol (Diprivan) 1,000 mg in 100 mls @ 38.136 mls/hr IV .Q2H38M [facility]; Protocol Stop: 11/03/19 22:44 Last Titration: 10/31/19 23:47 Dose: 40 mcg/kg/min, 38.1 mls/hr Documented by: [id number] Admin: 10/31/19 22:37 Dose: 25 mcg/kg/min, 23.8 mls/hr Documented by: [id number] Cosigned by: [id number] Nitroglycerin (Nitroglycerin Sl 0.4 Mg/Tab Tab) 0.4 mg SL UD PRN PRN Reason: Chest Pain Stop: 11/30/19 19:12 Last Admin: 10/31/19 19:58 Dose: 0.4 mg Documented by: [id number] Admin: 10/31/19 19:39 Dose: 0.4 mg Documented by: [id number] Admin: 10/31/19 19:15 Dose: 0.4 mg Documented by: [id number] Discontinued Medications Aspirin (Aspirin Chew 324 Mg) 324 mg PO NOW STA Stop: 10/31/19 19:14 Last Admin: 10/31/19 19:15 Dose: 324 mg Documented by: [id number] Aspirin (Aspirin Chew 324 Mg) Confirm Administered Dose 324 mg .ROUTE .STK-MED ONE Stop: 10/31/19 19:17 Last Admin: 10/31/19 19:35 Dose: Not Given Documented by: [id number] Diltiazem HCl (Diltiazem Hcl 5 Mg/Ml 5 Ml Vial) 10 mg IV NOW STA Stop: 10/31/19 20:31 Last Admin: 10/31/19 20:34 Dose: 10 mg Documented by: [id number] Cosigned by: [id number] Diltiazem HCl (Diltiazem Hcl 5 Mg/Ml 5 Ml Vial) Confirm Administered Dose 25 mg IV .STStratos-MED ONE Stop: 10/31/19 20:34 Last Admin: 10/31/19 21:59 Dose: Not Given Documented by: [id number] Fentanyl Citrate (Fentanyl Citrate 1250mcg/250ml Nss) Confirm Administered Dose 1,250 mcg IV .Omiro-MED ONE Stop: 10/31/19 22:34 Last Admin: 10/31/19 22:37 Dose: Not Given Documented by: [id number] Furosemide (Furosemide 40 Mg/4 Ml Vial) Confirm Administered Dose 40 mg IV .STStratos- MED ONE Stop: 10/31/19 20:27 Last Admin: 10/31/19 21:59 Dose: Not Given Documented by: [id number] Furosemide (Furosemide 40 Mg/4 Ml Vial) 40 mg IV NOW STA Stop: 10/31/19 20:28 Last Admin: 10/31/19 21:07 Dose: 40 mg Documented by: [id number] Furosemide (Furosemide 40 Mg/4 Ml Vial) 40 mg IV NOW STA Stop: 10/31/19 20:35 Last Admin: 10/31/19 21:59 Dose: Not Given Documented by: [id number] Furosemide (Furosemide 40 Mg/4 Ml Vial) 80 mg IV BID STA Stop: 10/31/19 21:35 Last Admin: 09/18/20 22:00 Dose: Not Given Documented by: [id number] Lorazepam (Ativan) 1 mg in 2 mls @ 2 mls/min IV NOW STA Stop: 10/31/19 19:14 Last Admin: 10/31/19 19:30 Dose: 2 mls/min Documented by: [id number] Lorazepam (Ativan) 0.5 mg in 1 mls @ 1 mls/min IV NOW STA Stop: 10/31/19 20:00 Last Admin: 10/31/19 20:10 Dose: 1 mls/min Documented by: [id number] Furosemide 80 mg/ Syringe 8 mls @ 4 mls/min IV ONE ONE Stop: 10/31/19 21:46 Last Admin: 10/31/19 22:01 Dose: 4 mls/min Documented by: [id number] Miscellaneous (Stat Iv Infusion Titration Per Protocol) 1 ea N/A NOW STA Stop: 10/31/19 19:57 Last Admin: 10/31/19 22:39 Dose: Not Given Documented by: [id number] Miscellaneous (Rapid Sequence Induction Bag) Confirm Administered Dose 1 ea .ROUTE .STK-MED ONE Stop: 10/31/19 20:37 Last Admin: 10/31/19 22:00 Dose: Not Given Documented by: [id number] Nitroglycerin (Nitroglycerin Sl 0.4 Mg/Tab Tab) Confirm Administered Dose 0.4 mg .ROUTE .STK-MED ONE Stop: 10/31/19 19:16 Last Admin: 10/31/19 19:35 Dose: Not Given Documented by: [id number] Propofol (Propofol Iv Emulsion 10 Mg/Ml 100 Ml Vial) Confirm Administered Dose 1,000 mg IV .STK-MED ONE Stop: 10/31/19 20:52 Last Admin: 10/31/19 21:22 Dose: 1,000 mg Documented by: [id number] Cosigned by: [id number] Critical Care Time Critical Care Time: Yes Total Critical Care Time: 52 I have personally spent greater than 52 minutes of critical care time in the direct management of this patient. This includes bedside care, interpretation of diagnostic studies, and testing, discussion with consultants, patient, and family members, and other required patient management activities. This 52 minutes is in excess of all separately billable procedures. Medical Decision Making Laboratory Data Result diagrams: 10/31/19 19:25 10/31/19 19:25 Lab Results 10/31/19 10/31/19 10/31/19 Range/Units 19:25 19:25 19:25 WBC 13.53 H (4.8-10.8) K/uL RBC 5.32 (4.7-6.1) M/uL Hgb 14.4 (14.0-18.0) g/dL POC Hgb (14.0-18.0) g/dl Hct 44.3 (42-52) % POC Hct (42-52) % MCV 83.3 (80-100) fL MCH 27.1 (25-34) pg MCHC 32.5 (32-36) g/dL RDW Std Deviation 55.1 H (36.4-46.3) fL RDW Coeff of Zoltan 18.1 H (11.5-14.5) % Plt Count 200 (130-400) K/uL MPV 9.7 (7.4-10.4) fL Immature Gran % (Auto) 0.5 % Neut % (Auto) 76.8 % Lymph % (Auto) 16.0 % [place] % (Auto) 5.6 % Eos % (Auto) 1.0 % Baso % (Auto) 0.1 % Neut # (Auto) 10.38 H (1.4-6.5) K/uL Lymph # (Auto) 2.16 (1.2-3.4) K/uL [place] # (Auto) 0.76 H (0.11-0.59) K/uL Eos # (Auto) 0.14 (0-0.5) K/uL Baso # (Auto) 0.02 (0-0.2) K/uL Immature Gran # (Auto) 0.07 H (0.00-0.02) K/uL PT (9.0-12.0) Seconds INR (0.9-1.1) APTT (21.0-31.0) Seconds PTT Ratio VBG pH 7.30 L (7.36-7.41) VBG pCO2 51 H (38-50) mmHg VBG pO2 37 mmHg VBG HCO3 24 mmol/L VBG O2 Saturation 64.0 % VBG Base Excess -2.7 mEq/L Barometric Pressure 734.3 mm/Hg POC Sodium (135-144) mmol/L Sodium 140 (136-145) mmol/L POC Potassium (3.3-5.0) mmol/L Potassium 3.9 (3.5-5.1) mmol/L POC Chloride (101-112) mmol/L Chloride 108 H (98-107) mmol/L Carbon Dioxide 23 (21-32) mmol/L POC Total CO2 (24-31) mmol/L Anion Gap 9.0 (3-11) POC Anion Gap (16-25) mmol/L POC BUN (7-18) mg/dl BUN 12 (7-18) mg/dl Creatinine 1.14 (0.6-1.4) mg/dl POC Creatinine (0.6-1.3) mg/dl Est Cr Clr Drug Dosing 124.9 ml/min Est GFR ( Amer) 91.4 Est GFR (Non-Af Amer) 78.9 BUN/Creatinine Ratio 10.5 (10-20) Glucose 191 H (70-99) mg/dl POC Glucose (other) (70-99) mg/dl Calcium 8.9 (8.5-10.1) mg/dl POC Ioniz Calcium [place] (1.12-1.32) mmol/l Troponin I < 0.015 (0-0.045) ng/ml NT-Pro-B Natriuret Pep 5242 H (0-450) pg/ml Lipase 91 (73-393) U/L 10/31/19 10/31/19 Range/Units 19:25 19:31 WBC (4.8-10.8) K/uL RBC (4.7-6.1) M/uL Hgb (14.0-18.0) g/dL POC Hgb 16.0 (14.0-18.0) g/dl Hct (42-52) % POC Hct 47 (42-52) % MCV (80-100) fL MCH (25-34) pg MCHC (32-36) g/dL RDW Std Deviation (36.4-46.3) fL RDW Coeff of Zoltan (11.5-14.5) % Plt Count (130-400) K/uL MPV (7.4-10.4) fL Immature Gran % (Auto) % Neut % (Auto) % Lymph % (Auto) % [place] % (Auto) % Eos % (Auto) % Baso % (Auto) % Neut # (Auto) (1.4-6.5) K/uL Lymph # (Auto) (1.2-3.4) K/uL [place] # (Auto) (0.11-0.59) K/uL Eos # (Auto) (0-0.5) K/uL Baso # (Auto) (0-0.2) K/uL Immature Gran # (Auto) (0.00-0.02) K/uL PT 11.5 (9.0-12.0) Seconds INR 1.1 (0.9-1.1) APTT 28.6 (21.0-31.0) Seconds PTT Ratio 1.0 VBG pH (7.36-7.41) VBG pCO2 (38-50) mmHg VBG pO2 mmHg VBG HCO3 mmol/L VBG O2 Saturation % VBG Base Excess mEq/L Barometric Pressure mm/Hg POC Sodium 141 (135-144) mmol/L Sodium (136-145) mmol/L POC Potassium 3.9 (3.3-5.0) mmol/L Potassium (3.5-5.1) mmol/L POC Chloride 105 (101-112) mmol/L Chloride (98-107) mmol/L Carbon Dioxide (21-32) mmol/L POC Total CO2 22 L (24-31) mmol/L Anion Gap (3-11) POC Anion Gap 19.0 (16-25) mmol/L POC BUN 11 (7-18) mg/dl BUN (7-18) mg/dl Creatinine (0.6-1.4) mg/dl POC Creatinine 0.9 (0.6-1.3) mg/dl Est Cr Clr Drug Dosing ml/min Est GFR ( Amer) Est GFR (Non-Af Amer) BUN/Creatinine Ratio (10-20) Glucose (70-99) mg/dl POC Glucose (other) 192 H (70-99) mg/dl Calcium (8.5-10.1) mg/dl POC Ioniz Calcium [place] 1.15 (1.12-1.32) mmol/l Troponin I (0-0.045) ng/ml NT-Pro-B Natriuret Pep (0-450) pg/ml Lipase (73-393) U/L Imaging Data Radiologist's Impression: XR chest 1V portable HISTORY: Atypical Chest Pain COMPARISON: Chest 10/15/2019. Chest CTA 10/26/2019. FINDINGS: The heart remains enlarged. No pneumothorax. Perihilar interstitial and vascular thickening as well as bibasilar densities have progressed. This suggests moderate pulmonary edema. There are trace bilateral pleural effusions. Left-sided single lead pacemaker again noted. IMPRESSION: Cardiomegaly with progression of the moderate pulmonary edema and trace bilateral pleural effusions. ACT 112: Negative or not required by law. Electronically signed by: Andrea Bear M.D. 10/31/2019 7:58 PM Dictated: 10/31/191956 Transcribed: 10/31/191956 ECG Data Indication: + chest pain and + SOB/dyspnea Rate (beats per minute): 136 Rhythm: + sinus tachycardia ECG Intervals/blocks: + Normal QRS, + Prolonged QT and + Normal CO ECG ST segments: + Normal ST segments ECG Findings: + PVCs MDM Narrative 1909: The patient was evaluated in room B1. A complete history and physical exam was performed. Patient was seen in the resuscitation bay. nurse reviewer and pulse ox were immediately applied to the patient and he was found to be 89% on room air. Patient was continued on BiPAP / his previous settings. Cardiac monitoring: An order was placed for continuous cardiac monitoring. The monitor shows a rate of 135 with sinus tachycardia rhythm EMR reviewed. Patient has a history of CHF, COPD, AICD placement, poor intravenous access, and noncompliance with medications. Patient was seen in the emergency department 5 days ago. At that time he had a CT of the chest and CT of the abdomen which were negative. 2011: Chest x-ray shows cardiomegaly with pulmonary edema. Patient remains hypertensive and tachycardic. 3 sublingual nitroglycerin have not significantly improved his blood pressure. Patient will be started on nitroglycerin drip. Patient is continued on BiPAP. Discussed with ICU Calvin FORD who states he will evaluate the patient. [facility] hospitalist will admit the patient Dr. Goode notified. 2049: Nitroglycerin drip was titrated up with the patient had no significant clinical improvement. Decision was made to intubate the patient. See procedure note. Patient was admitted to the ICU. Impression & Plan Acute respiratory failure, CHF (congestive heart failure), Flash pulmonary edema Discharge Plan Visit Data Chief Complaint: Shortness of Breath/Dyspnea Stated Complaint: sob ED Provider: Onofre Almaraz Discharge Problem: Acute respiratory failure, CHF (congestive heart failure), Flash pulmonary edema Patient Disposition: Admitted As Inpatient Discharge Instructions Interventions: ED Discharge Assessment Last Done: 10/31/19 21:45 Discharge Problem: Acute respiratory failure Qualifiers: Respiratory failure complication: hypoxia and hypercapnia Qualified Code(s): J96.01 - Acute respiratory failure with hypoxia CHF (congestive heart failure) Qualifiers: Heart failure type: unspecified Heart failure chronicity: acute Qualified Code(s): I50.9 - Heart failure, unspecified
[2019-10-31 19:49] LABS: INR 1.1 (0.9-1.1); Partial Thromboplastin Time 28.6 Seconds (21.0-31.0); Prothrombin Time 11.5 Seconds (9.0-12.0)
[2019-10-31 19:53] LABS: BUN Creatinine Ratio 10.5 (10-20); Blood Urea Nitrogen 12 mg/dl (7-18); Calcium 8.9 mg/dl (8.5-10.1); Carbon Dioxide 23 mmol/L (21-32); Chloride 108 mmol/L (98-107); Creatinine Clr Calc Pharmacy 124.9 ml/min; Est GFR (African American) 91.4; Est GFR (Non-African American) 78.9; Glucose 191 mg/dl (70-99); Lipase 91 U/L (73-393); Potassium 3.9 mmol/L (3.5-5.1); Sodium 140 mmol/L (136-145)
[2019-10-31] MEDS ORDERED: STAT IV Infusion **Titration per Protocol STA ×3 (19:56→22:32)
[2019-10-31 19:57] LABS: NT Pro B Type Natriuretic Pept 5242 pg/ml (0-450); Troponin I < 0.015 ng/ml (0-0.045)
[2019-10-31] MEDS ORDERED: LORazepam 0.5 MG/1 ML VIAL IV STA (19:59)
--- NOTE | 2019-10-31 19:59 | XRay Report ---
XR chest 1V portable HISTORY: Atypical Chest Pain COMPARISON: Chest 10/15/2019. Chest CTA 10/26/2019. FINDINGS: The heart remains enlarged. No pneumothorax. Perihilar interstitial and vascular thickening as well as bibasilar densities have progressed. This suggests moderate pulmonary edema. There are tr linus bilateral pleural effusions. Left-sided single lead pacemaker again noted. IMPRESSION: Cardiomegaly with progression of the moderate pulmonary edema and trace bilateral pleural effusions. ACT 112: Negative or not required by law. Electronically signed by: Andrea Bear M.D. 10/31/2019 7:58 PM
[2019-10-31] MEDS: NITROGLYCERIN/D5W 100MCG/ML 250 ML IV SCH ×2 (20:12→22:04)
[2019-10-31] MEDS ORDERED: FUROSEMIDE 40 MG/4 ML VIAL IV ONE (20:26)
[2019-10-31] MEDS ORDERED: FUROSEMIDE 40 MG/4 ML VIAL IV STA ×3 (20:27→21:34)
[2019-10-31] MEDS ORDERED: dilTIAZem HCl 5 MG/ML 5 ML VIAL IV STA (20:30)
[2019-10-31] MEDS ORDERED: dilTIAZem HCl 5 MG/ML 5 ML VIAL IV ONE (20:33)
[2019-10-31] MEDS ORDERED: RAPID SEQUENCE INDUCTION BAG ONE (20:36)
[2019-10-31] MEDS ORDERED: PROPOFOL IV EMULSION 10 MG/ML 100 ML VIAL IV ONE (20:51)
[2019-10-31] MEDS ORDERED: LEVALBUTEROL HCL 1.25 MG/3 ML NEB INH PRN (21:34)
[2019-10-31] MEDS ORDERED: ICU PROTOCOL FOR HYPERGLYCEMIA PRN (21:34)
[2019-10-31] MEDS ORDERED: FUROSEMIDE 80 MG in SYRINGE 0 ML IV ONE (21:45)
[2019-10-31] MEDS: FAMOTIDINE 20 MG in SYRINGE 3 ML IV SCH (22:01)
[2019-10-31] MEDS: HEPARIN SOD 5,000 UNIT/0.5 ML VIAL SQ SCH (22:02)
--- NOTE | 2019-10-31 22:23 | History & Physical Report ---
Date of Service October 31, 2019 Assessment & Plan (1) Admitted to intensive care unit: Patient is admitted to the intensive care unit, after intubation in the ED, with acute on chronic HFrEF. [employer] staff is been consulted for further medical management Present on Admission?: Yes (2) Acute on chronic heart failure with reduced ejection fraction and diastolic dysfunction: Acute on chronic HFrEF/nonischemic cardiomyopathy/AICD present/hypertension/medical noncompliance- Intubated, with ventilator adjustments per ICU staff Continue nitroglycerin drip begun in the ED and titrate as needed map of 65 and improved CHF. Given Lasix 80 mg IV in the ED, and will continue at 80 mg IV twice daily. Of note, patient's blood pressure improved significantly once intubated and on diprovan Follow serial chest x-rays. Check a complete echocardiogram. Present on Admission?: Yes (3) AICD (automatic cardioverter/defibrillator) present: No firing noted Present on Admission?: Yes (4) NICM (nonischemic cardiomyopathy): See above Present on Admission?: Yes (5) Diabetes mellitus type 2 with complications: Placed on Accu-Cheks before meals and at bedtime with NovoLog coverage per scale as noted. Present on Admission?: Yes (6) Obstructive sleep apnea: On ventilator. Present on Admission?: Yes (7) COPD (chronic obstructive pulmonary disease): Xopenex nebulizers every 6 hours as needed Present on Admission?: Yes (8) Noncompliance: Patient with frequent hospitalizations, associated with known medical noncompliance. He reportedly is and lives with . When patient was finally discharged this admission, serious consideration should be given to placement in a personal retirement or nursing facility. Present on Admission?: Yes Admission and Anticipated Discharge Date Admission Date: October 31, 2019 History of Present Illness Chief Complaint: The patient presented to the emergency department with extreme shortness of breath with accessory muscle use and complaint of chest pain. Primary Care Provider: Poornima Rocha MD The patient is a 43-year-old male with past medical history including HFrEF, tussive syncope, ICD, NICM, diabetes mellitus, MARIELENA, hypertensive urgency, morbid obesity, COPD, frequent admissions for respiratory failure with hypoxia and hypercapnia, acute on chronic heart failure, known medical noncompliance. He presented to the ED and appeared to be at significantly worse condition than his usual presentation. He was having significantly more issues with accessory muscle use, shortness of breath to the point where he could not speak. It was discussed with him at this time he should be intubated for treatment of his respiratory failure and he agreed. In the emergency department, patient was given Lasix 40 mg IV, started on nitroglycerin drip, given Cardizem 10 mg IV, placed on BiPAP, and as noted above, required intubation, which was performed by the ED staff. Patient was then transferred to the ICU for continued medical management Allergies Allergy/AdvReac Type Severity Reaction Status Date / Time ceftriaxone Allergy Severe SHORTNESS Verified 10/30/19 13:17 OF BREATH lidocaine Allergy Severe SHORTNESS Verified 10/30/19 13:17 OF BREATH, diaphoretic, hives procaine Allergy Severe SHORTNESS Verified 10/30/19 13:17 OF BREATH, diaphoretic, hives amoxicillin Allergy Intermediate HIVES/FACIAL Verified 10/30/19 13:17 SWELLING clavulanic acid Allergy Intermediate HIVES/FACIAL Verified 10/30/19 13:17 SWELLING lisinopril Allergy Intermediate HIVES Verified 10/30/19 13:17 acetaminophen AdvReac Mild NAUSEA Verified 10/30/19 13:17 albuterol AdvReac Mild proair Verified 10/30/19 13:17 "trouble taking breaths" Fish Containing Products AdvReac Verified 11/01/19 16:29 Home Medications Home Medications Medication Instructions Recorded Confirmed Type aspirin 81 mg tablet,delayed 81 mg PO QAM 09/17/18 10/31/19 History release nitroglycerin [Nitrostat] 0.4 mg SUBLINGUAL UD PRN 04/24/19 10/31/19 History Breo Ellipta 1 inh INHALATION QAM 09/21/19 10/31/19 History budesonide 0.25 mg INHALATION Q12 PRN 09/21/19 10/31/19 History cholecalciferol (vitamin D3) 50 mcg PO BID 10/04/19 10/31/19 History [Vitamin D3] esomeprazole magnesium 20 mg PO BID 10/04/19 10/31/19 History isosorbide mononitrate 30 mg PO QAM 10/04/19 10/31/19 History Entresto 1 tab PO BID #60 tab 10/07/19 10/31/19 Rx metoprolol succinate 100 mg PO BID #60 tab 10/07/19 10/31/19 Rx potassium chloride [Klor-Con M20] 20 meq PO BID #0 tab 10/07/19 10/31/19 Rx torsemide 40 mg PO TID #180 tab 10/07/19 10/31/19 Rx diclofenac sodium [Voltaren] 4 g EXT QID 30 Days g 10/16/19 10/31/19 Rx dulaglutide [Trulicity] 1.5 mg SUBCUT WK 10/31/19 10/31/19 History gabapentin [Neurontin] 300 mg PO DAILY 10/31/19 10/31/19 History spironolactone [Aldactone] See Rx Instructions .ROUTE .COMPLEX 10/31/19 10/31/19 History Past Med/Surg History Medical History Chronic respiratory failure 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 Underwent procedure without any complications monitored over night and discharged home. Obstructive sleep apnea SOB (shortness of breath) Umbilical hernia Vitamin D insufficiency Previously deficient, taking Vit D supplementation Surgical History History of carpal tunnel surgery History of cholecystectomy S/P tonsillectomy Family History Father , age 57 of an [place]. 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 Beliefs That Will Affect Care: None marital status: Current Living Situation: Spouse current occupational status: unemployed How many Children do You have: 0 Feels Safe at Home: Yes Safety Concerns: Feels Safe At This Time Childhood Exposure to Second-Hand Smoke: Yes Dental Care, Regularly: Yes Physical Activity Frequency: Does not Exercise Review of Systems Review of Systems: Unobtainable due to severity of current medical condition Physical Exam Physical Exam: The patient is awake, alert and oriented 3, morbidly obese normocephalic and atraumatic, sitting upright in bed and in severe respiratory distress with accessory muscle use and tachypnea with 40 breaths/min HEENT--PERRL, EOMI, mucous membranes and oropharynx dry due to tachypnea. Presently on BiPAP Neck--supple. No JVD. No bruits. Thyroid normal, trachea midline, no adenopathy. Heart--normal S1 and S2. No murmurs, rubs or gallops. Lungs--coarse breath sounds and wheezes bilaterally. Severe respiratory distress with accessory muscle use. Abdomen--normal bowel sounds and soft. Nontender. Nondistended. Morbidly obese Extremities--no cyanosis or clubbing. 3+ bilateral pretibial pitting edema. Dermatologic--normal skin turgor, normal color, no abnormal lymph nodes, no rash. Neurologic--cranial nerves II through XII grossly intact. Rheumatologic--limited exam, moving all extremities equally well Psychiatric--normal affect. Results & Data Results & Data ([facility]) Vital Signs (Past 12 Hours) Vital Signs Temp Pulse Resp BP BP Pulse Ox 10/31/19 22:12 130 H 24 88 L 10/31/19 21:40 90 10/31/19 21:36 130 H 249/163 H 89 L 10/31/19 21:31 126 H 235/151 H 89 L 10/31/19 21:30 127 H 87 L 10/31/19 21:26 124 H 255/164 H 85 L 10/31/19 21:25 126 H 86 L 10/31/19 21:21 123 H 268/183 H 88 L 10/31/19 21:17 127 H 240/165 H 89 L 10/31/19 21:15 132 H 88 L 10/31/19 21:10 136 H 208/147 H 91 10/31/19 21:06 125 H 88 L 10/31/19 21:05 130 H 210/141 H 88 L 09/18/20 21:00 205/123 H 85 L 10/31/19 20:55 197/130 H 78 L 10/31/19 20:51 69 L 10/31/19 20:48 128 H 24 86 L 10/31/19 20:46 170/128 H 93 10/31/19 20:45 133 H 89 L 10/31/19 20:42 133 H 181/92 H 87 L 10/31/19 20:40 133 H 30 H 90 10/31/19 20:36 139 H 34 H 89 L 10/31/19 20:31 141 H 35 H 209/128 H 91 10/31/19 20:30 140 H 22 89 L 10/31/19 20:26 138 H 37 H 186/144 H 92 10/31/19 20:22 135 H 41 H 173/133 H 92 10/31/19 20:20 138 H 27 H 91 10/31/19 20:15 137 H 39 H 92 10/31/19 20:02 140 H 48 H 206/161 H 93 10/31/19 19:53 197/124 H 10/31/19 19:35 135 H 39 H 197/154 H 95 10/31/19 19:19 98.8 F 140 H 26 H 176/153 H 97 10/31/19 19:07 140 H 37 H 98 Laboratory Results Laboratory Results WBC 14.43 K/uL (4.8-10.8) H 11/01/19 03:32 RBC 4.55 M/uL (4.7-6.1) L 11/01/19 03:32 Hgb 12.2 g/dL (14.0-18.0) L 11/01/19 03:32 POC Hgb 12.6 g/dl (14.0-18.0) L 11/01/19 05:13 Hct 37.4 % (42-52) L 11/01/19 03:32 POC Hct 37 % (42-52) L 11/01/19 05:13 MCV 82.2 fL (80-100) 11/01/19 03:32 MCH 26.8 pg (25-34) 11/01/19 03:32 MCHC 32.6 g/dL (32-36) 11/01/19 03:32 RDW Std Deviation 53.3 fL (36.4-46.3) H 11/01/19 03:32 RDW Coeff of Zoltan 17.7 % (11.5-14.5) H 11/01/19 03:32 Plt Count 183 K/uL (130-400) 11/01/19 03:32 MPV 10.1 fL (7.4-10.4) 11/01/19 03:32 Immature Gran % (Auto) 0.3 % 11/01/19 03:32 Neut % (Auto) 82.2 % 11/01/19 03:32 Lymph % (Auto) 12.5 % 11/01/19 03:32 [place] % (Auto) 4.8 % 11/01/19 03:32 Eos % (Auto) 0.1 % 11/01/19 03:32 Baso % (Auto) 0.1 % 11/01/19 03:32 Neut # (Auto) 11.88 K/uL (1.4-6.5) H 11/01/19 03:32 Lymph # (Auto) 1.80 K/uL (1.2-3.4) 11/01/19 03:32 [place] # (Auto) 0.69 K/uL (0.11-0.59) H 11/01/19 03:32 Eos # (Auto) 0.01 K/uL (0-0.5) 11/01/19 03:32 Baso # (Auto) 0.01 K/uL (0-0.2) 11/01/19 03:32 Immature Gran # (Auto) 0.04 K/uL (0.00-0.02) H 11/01/19 03:32 PT 12.1 Seconds (9.0-12.0) H 11/01/19 03:32 INR 1.2 (0.9-1.1) H 11/01/19 03:32 APTT 26.5 Seconds (21.0-31.0) 11/01/19 03:32 PTT Ratio 0.9 11/01/19 03:32 Sample Site Art Line 11/01/19 05:13 POC pH 7.48 (7.35-7.45) H 11/01/19 05:13 POC pCO2 29 mmHg (35-46) L 11/01/19 05:13 POC pO2 79 mmHg (80-95) L 11/01/19 05:13 POC HCO3 22 halie/L (19-24) 11/01/19 05:13 POC Total CO2 23 mmol/L (24-31) L 11/01/19 05:13 POC Base Excess -2.0 halie/L (-9-1.8) 11/01/19 05:13 ABG pH (Temp Correct) 7.471 (7.35-7.45) H 11/01/19 05:13 ABG pCO2 (Temp Corrct 30 mmHg (35-46) L 11/01/19 05:13 POC ABG pO2 at Pt Temp 84 11/01/19 05:13 POC ABG O2 Sat 97.0 % (90-95) H 11/01/19 05:13 Ankur Test NA 11/01/19 05:13 VBG pH 7.30 (7.36-7.41) L 10/31/19 19:25 VBG pCO2 51 mmHg (38-50) H 10/31/19 19:25 VBG pO2 37 mmHg 10/31/19 19:25 VBG HCO3 24 mmol/L 10/31/19 19:25 VBG O2 Saturation 64.0 % 10/31/19 19:25 VBG Base Excess -2.7 mEq/L 10/31/19 19:25 Barometric Pressure 734.3 mm/Hg 10/31/19 19:25 O2 Delivery Device Ventilator 11/01/19 05:13 POC O2 Rate 30 11/01/19 05:13 Minute Ventilation 15 11/01/19 05:13 POC FiO2 50 % 11/01/19 05:13 Tidal Volume 500 11/01/19 05:13 PEEP 15 11/01/19 05:13 POC Sodium 141 mmol/L (135-144) 11/01/19 05:13 Sodium 143 mmol/L (136-145) 11/01/19 03:32 POC Potassium 4.0 mmol/L (3.3-5.0) 11/01/19 05:13 Potassium 3.9 mmol/L (3.5-5.1) 11/01/19 03:32 POC Chloride 105 mmol/L (101-112) 10/31/19 19:31 Chloride 113 mmol/L (98-107) H 11/01/19 03:32 Carbon Dioxide 22 mmol/L (21-32) 11/01/19 03:32 POC Total CO2 22 mmol/L (24-31) L 10/31/19 19:31 Anion Gap 8.0 (3-11) 11/01/19 03:32 POC Anion Gap 19.0 mmol/L (16-25) 10/31/19 19:31 POC BUN 11 mg/dl (7-18) 10/31/19 19:31 BUN 16 mg/dl (7-18) 11/01/19 03:32 Creatinine 1.45 mg/dl (0.6-1.4) H D 11/01/19 03:32 POC Creatinine 0.9 mg/dl (0.6-1.3) 10/31/19 19:31 Est Cr Clr Drug Dosing 97.8 ml/min 11/01/19 03:32 Est GFR ( Amer) 68.4 11/01/19 03:32 Est GFR (Non-Af Amer) 59.0 11/01/19 03:32 BUN/Creatinine Ratio 11.0 (10-20) 11/01/19 03:32 Glucose 147 mg/dl (70-99) H 11/01/19 03:32 POC Glucose 105 mg/dl (70-99) H 11/01/19 11:12 POC Glucose (other) 192 mg/dl (70-99) H 10/31/19 19:31 Calcium 7.6 mg/dl (8.5-10.1) L 11/01/19 03:32 POC Ioniz Calcium [place] 1.15 mmol/l (1.12-1.32) 10/31/19 19:31 Phosphorus 3.2 mg/dl (2.5-4.9) 11/01/19 03:32 Magnesium 1.5 mg/dl (1.8-2.4) L 11/01/19 03:32 Total Bilirubin 1.3 mg/dl (0.2-1) H 11/01/19 03:32 Direct Bilirubin 0.5 mg/dl (0-0.2) H 11/01/19 03:32 AST 15 U/L (15-37) 11/01/19 03:32 ALT 13 U/L (12-78) 11/01/19 03:32 Alkaline Phosphatase 74 U/L (45-117) 11/01/19 03:32 Troponin I < 0.015 ng/ml (0-0.045) 10/31/19 19:25 NT-Pro-B Natriuret Pep 5242 pg/ml (0-450) H 10/31/19 19:25 Total Protein 6.0 gm/dl (6.4-8.2) L 11/01/19 03:32 Albumin 2.5 gm/dl (3.4-5.0) L 11/01/19 03:32 Lipase 73 U/L (73-393) 11/01/19 03:32 Procalcitonin 3.09 ng/ml (0-0.5) H 11/01/19 09:33 Nasal Screen MRSA (PCR) Negative (Negative) 10/31/19 23:22 Code Status & VTE Plan Code Status Full code VTE Prophylaxis Plan VTE Prophylaxis will be ordered: Yes Critical Care Time Critical Care Time: Yes Total Critical Care Time: 45 Total critical care time was 45 minutes PG Care Time/CCT Total # of Minutes Spent Total Time Spent with Patient: Total time spent is greater than 50% in coor dination of care (as documented) at patient's floor/unit and/or counseling patient: Critical Care Time: Yes Total Critical Care Time: 45 Coding Level of Care Code 26245 Initial Inpt Care Lvl 3 Diagnoses Admitted to intensive care unit Z78.9 Acute on chronic heart failure with reduced ejection fraction and diastolic dysfunction I50.43 AICD (automatic cardioverter/defibrillator) present Z95.810 NICM (nonischemic cardiomyopathy) I42.8 Diabetes mellitus type 2 with complications E11.8 Obstructive sleep apnea G47.33 COPD (chronic obstructive pulmonary disease) J44.9 COPD type: unspecified COPD Noncompliance Z91.19 Additional Codes Critical Care Time - Critical Care Time: Yes ([id number]) Time Spent (min) 45 (1) COPD (chronic obstructive pulmonary disease) COPD type: unspecified COPD Qualified Code(s): J44.9 - Chronic obstructive pulmonary disease, unspecified
[2019-10-31] MEDS ORDERED: FENTANYL BOLUS FROM BAG IV PRN (22:31)
[2019-10-31] MEDS ORDERED: PROPOFOL BOLUS FROM BAG IV PRN (22:32)
--- NOTE | 2019-10-31 22:32 | XRay Report ---
XR chest 1V portable HISTORY: Endotracheal tube placement. COMPARISON: Chest 10/31/2019. FINDINGS: The endotracheal tube appears to be at the right mainstem bronchus. This should be pulled b ack by approximately 2 to 3 cm. Nasogastric tube terminus below the diaphragm. The tip is not include d on this study. Cardiomegaly is again noted. Small bilateral pleural effusions and bilateral perihil ar airspace opacities have progressed. This likely represents severe pulmonary edema. Left-sided pace maker is again noted. No pneumothorax. IMPRESSION: 1. Endotracheal tube appears to terminate at the right mainstem bronchus. This should be pulled back by approximately 2 to 3 cm. 2. Severe pulmonary edema and small bilateral pleural effusions have progressed. 3. These findings were discussed with Dr. Almaraz at 9:17 PM on 10/31/2019. ACT 112: Negative or not required by law. Electronically signed by: Andrea Bear M.D. 10/31/2019 10:30 PM
--- NOTE | 2019-10-31 22:33 | Critical Care Consultation ---
Date of Consultation October 31, 2019 Assessment & Plan (1) Admitted to intensive care unit: Reason Critically Ill: 43-year-old male with flash pulmonary edema in the setting of decompensated congestive heart failure resulting in respiratory distress requiring emergent endotracheal intubation. NEURO - * CAM ICU: Unable to assess secondary to level sedation. * Sedation: Propofol * Pain: Fentanyl CARDIAC/VASCULAR - * Acute exacerbation of chronic CHF: * Reportedly, the patient is relatively noncompliant with regular medications. * Chest x-ray and presentation concerning for acutely decompensated CHF. * Initially received IV nitroglycerin as well as positive pressure ventilatory techniques. * Did receive IV Lasix as well. * Will continue with scheduled IV Lasix. * Taper off nitroglycerin as tolerated. * Hypertensive emergency: * Initially with systolic blood pressures greater than 200s. * Severe pulmonary edema solidifying diagnosis. * Continue with above. * EKG: Sinus tachycardia at a rate of [address] elevations noted. QTc 499 ms * Monitor on telemetry. RESPIRATORY - * Acute hypoxic respiratory failure: * Secondary to flash pulmonary edema. * Did not respond to positive pressure ventilatory techniques. * Required endotracheal intubation. * Requiring high amounts of PEEP and FiO2 initially. * Will provide adequate sedation and reassess ventilator settings possible need to proceed with ARDSNET protocol. * Assess ABGs as needed with ventilatory adjustments as needed. * Significant diuresis necessary. GI/NUTRITION - * N.p.o. * Prophylaxis: Protonix RENAL/LYTES - * No significant electrolyte derangements. * Monitor electrolytes while aggressively diuresing. - * De Dios in place - Strict I&Os. ENDO - * DMII * BSGs per unit protocol. ISS --> gtt per unit policy. HEME - * Stable H&H ID - * No leukocytosis. Without fever. No recent sick contacts. No findings on chest x-ray consistent with infiltrative change. LINES/IV ACCESS - * PIVs x2 * Endurance catheter to RIGHT upper extremity * ET tube * OG * De Dios catheter * RIGHT radial arterial line DVT PROPHYLAXIS - * Heparin * SCDs I have personally spent 65 minutes of critical care time in the direct management of this patient. This is a life/limb threatening event. This includes time spent evaluating patient, direct bedside care, chart review, placing orders, interpretation of diagnostic studies, discussion with consultants, patient, and family members, as well as other required patient management activities. This time is exclusive of all separately billable procedures, and teaching time and separate from and in addition to any other critical care service time. Thank you for allowing us to participate in the care of this patient. Please refer to my attending physician's documentation for any further recommendations. (2) Flash pulmonary edema: (3) CHF (congestive heart failure): (4) Acute respiratory failure: (5) Pulmonary edema: (6) Acute on chronic congestive heart failure: (7) Hypertensive emergency: (8) Poor intravenous access: (9) Acute on chronic heart failure with reduced ejection fraction and diastolic dysfunction: (10) Tachycardia: (11) Hypertension: (12) CHF (congestive heart failure): History of Present Illness Attending Physician: Noé Jaquez MD History of Present Illness Patient is an unfortunate 43-year-old male with a significant past medical history of hypertension, diabetes, COPD, obstructive sleep apnea, nonischemic cardiomyopathy status post AICD placement, recurrent CHF secondary to heart failure with reduced ejection fraction, recurrent hemoptysis, and medical noncompliance. Patient presented to the emergency department this evening with progressively worsening shortness of breath. Patient recently has been experi encing bouts of CHF exacerbation with escalating doses of diuretic therapies. Patient presented to the emergency department with respiratory distress. He received IV nitroglycerin secondary to profound hypertension. He received Ativan for compliance with noninvasive ventilatory techniques. Upon assessment in the emergency department, the patient is awake and alert, however he is unable to communicate secondary to respiratory distress. The patient received a total of 80 mg IV Lasix. Despite aggressive noninvasive ventilatory techniques, the patient is still maintained saturations in the mid to high 80s. He is tachypneic with respiratory rate in the 40s to 50s. At this point, decision made to proceed with emergent endotracheal intubation secondary to respiratory distress. Allergies Allergy/AdvReac Type Severity Reaction Status Date / Time ceftriaxone Allergy Severe SHORTNESS Verified 10/30/19 13:17 OF BREATH lidocaine Allergy Severe SHORTNESS Verified 10/30/19 13:17 OF BREATH, diaphoretic, hives procaine Allergy Severe SHORTNESS Verified 10/30/19 13:17 OF BREATH, diaphoretic, hives amoxicillin Allergy Intermediate HIVES/FACIAL Verified 10/30/19 13:17 SWELLING clavulanic acid Allergy Intermediate HIVES/FACIAL Verified 10/30/19 13:17 SWELLING lisinopril Allergy Intermediate HIVES Verified 10/30/19 13:17 acetaminophen AdvReac Mild NAUSEA Verified 10/30/19 13:17 albuterol AdvReac Mild proair Verified 10/30/19 13:17 "trouble taking breaths" Home Medications Home Medications Medication Instructions Recorded Confirmed Type aspirin 81 mg tablet,delayed 81 mg PO QAM 09/17/18 10/31/19 History release nitroglycerin [Nitrostat] 0.4 mg SUBLINGUAL UD PRN 04/24/19 10/31/19 History Breo Ellipta 1 inh INHALATION QAM 09/21/19 10/31/19 History budesonide 0.25 mg INHALATION Q12 PRN 09/21/19 10/31/19 History cholecalciferol (vitamin D3) 50 mcg PO BID 10/04/19 10/31/19 History [Vitamin D3] esomeprazole magnesium 20 mg PO BID 10/04/19 10/31/19 History isosorbide mononitrate 30 mg PO QAM 10/04/19 10/31/19 History Entresto 1 tab PO BID #60 tab 10/07/19 10/31/19 Rx metoprolol succinate 100 mg PO BID #60 tab 10/07/19 10/31/19 Rx potassium chloride [Klor-Con M20] 20 meq PO BID #0 tab 10/07/19 10/31/19 Rx torsemide 40 mg PO TID #180 tab 10/07/19 10/31/19 Rx diclofenac sodium [Voltaren] 4 g EXT QID 30 Days g 10/16/19 10/31/19 Rx dulaglutide [Trulicity] 1.5 mg SUBCUT WK 10/31/19 10/31/19 History gabapentin [Neurontin] 300 mg PO DAILY 10/31/19 10/31/19 History spironolactone [Aldactone] See Rx Instructions .ROUTE .COMPLEX 10/31/19 10/31/19 History Patient History Medical History Chronic respiratory failure 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 Underwent procedure without any complications monitored over night and discharged home. Obstructive sleep apnea SOB (shortness of breath) Umbilical hernia Vitamin D insufficiency Previously deficient, taking Vit D supplementation Surgical History History of carpal tunnel surgery History of cholecystectomy S/P tonsillectomy Family History Father , age 57 of an AR. Heart disease Myocardial infarction Mother , age 67 of a ruptured neck vessel Sudden Other Depression Lung disease No pertinent family history Denies family history of Ovarian cancer Prostate cancer Breast cancer Colorectal cancer Social History Smoking Status: Former smoker Age Started Using Tobacco: 14; Age Quit Using Tobacco: 18; Cigarettes Per Day: 40-50; Second Hand Exposure: No; Hx Alcohol Use: No Hx Substance Use: No Preferred Language: Latvian Communication Ability: Effective Visual Impairment: No Limitations Hearing Ability: Normal Gate Manager Required: No Beliefs That Will Affect Care: None marital status: Current Living Situation: Spouse current occupational status: unemployed How many Children do You have: 0 Feels Safe at Home: Yes Safety Concerns: Feels Safe At This Time Childhood Exposure to Second-Hand Smoke: Yes Dental Care, Regularly: Yes Physical Activity Frequency: Does not Exercise Review of Systems Review of Systems: Unobtainable due to cognitive status Physical Exam Physical Exam: VITAL SIGNS - Vital signs and nursing notes were reviewed. GENERAL - 43-year-old male appearing his stated age who is in significant respiratory distress. Unable to communicate fully secondary to level of respiratory distress. HEAD - NC/AT. EYES - PERRL with EOMI bilaterally. Sclera anicteric. EARS - No deformities of external structures noted on gross examination bilaterally. NOSE - Midline and without cyanosis. No epistaxis or purulent drainage noted. MOUTH/OROPHARYNX - Without perioral cyanosis. Buccal mucosa pink and moist and without leukoplakia. NECK - Neck with FROM. LUNGS -tachypneic and severe respiratory distress. coarse breath sounds appreciated bilaterally. Rales throughout. CARDIAC -tachycardic. No murmur, rubs, or gallops appreciated. No reproducible tenderness to palpation appreciated over the anterior chest wall. ABDOMEN - Abdominal contour obese without pulsations or visible masses. BS normoactive all four quadrants. No tenderness, palpable masses, hepatosplenomegaly, or ascites noted. EXTREMITIES - No clubbing or peripheral cyanosis. Moderate pretibial edema present. +3/5 radial and dorsalis pedis pulses palpated throughout. +5/5 strength noted in UE/LE bilaterally. NEUROLOGIC - Cranial nerves II through XII grossly intact. Sensory intact to light touch throughout. PSYCH - A&O and is able to nod "yes/no". Results & Data Results & Data ([facility]) Vital Signs (Past 12 Hours) Vital Signs Temp Pulse Resp BP BP Pulse Ox 10/31/19 22:12 130 H 24 88 L 10/31/19 21:40 90 10/31/19 21:36 130 H 249/163 H 89 L 10/31/19 21:31 126 H 235/151 H 89 L 10/31/19 21:30 127 H 87 L 10/31/19 21:26 124 H 255/164 H 85 L 10/31/19 21:25 126 H 86 L 10/31/19 21:21 123 H 268/183 H 88 L 10/31/19 21:17 127 H 240/165 H 89 L 10/31/19 21:15 132 H 88 L 10/31/19 21:10 136 H 208/147 H 91 10/31/19 21:06 125 H 88 L 10/31/19 21:05 130 H 210/141 H 88 L 10/31/19 21:00 205/123 H 85 L 10/31/19 20:55 197/130 H 78 L 10/31/19 20:51 69 L 10/31/19 20:48 128 H 24 86 L 10/31/19 20:46 170/128 H 93 20 20:45 133 H 89 L 10/31/19 20:42 133 H 181/92 H 87 L 10/31/19 20:40 133 H 30 H 90 10/31/19 20:36 139 H 34 H 89 L 10/31/19 20:31 141 H 35 H 209/128 H 91 1820 20:30 140 H 22 89 L 10/31/19 20:26 138 H 37 H 186/144 H 92 10/31/19 20:22 135 H 41 H 173/133 H 92 10/31/19 20:20 138 H 27 H 91 10/31/19 20:15 137 H 39 H 92 10/31/19 20:02 140 H 48 H 206/161 H 93 10/31/19 19:53 197/124 H 10/31/19 19:35 135 H 39 H 197/154 H 95 10/31/19 19:19 37.1 C 140 H 26 H 176/153 H 97 10/31/19 19:07 140 H 37 H 98 Coding Level of Care Code Critical Care 1st 30-74 mins Diagnoses Admitted to intensive care unit Z78.9 Flash pulmonary edema J81.0 CHF (congestive heart failure) I50.9 Heart failure chronicity: acute Heart failure type: unspecified Acute respiratory failure J96.01; J96.02 Respiratory failure complication: hypoxia and hypercapnia Pulmonary edema J81.0 Chronicity: acute Acute on chronic congestive heart failure I50.43 Heart failure type: combined systolic and diastolic Hypertensive emergency I16.1 Poor intravenous access Z78.9 Acute on chronic heart failure with reduced ejection fraction and diastolic dysfunction I50.43 Tachycardia R00.0 Hypertension I10 Hypertension type: unspecified CHF (congestive heart failure) I50.9 Heart failure chronicity: acute on chronic Heart failure type: unspecified Time Spent (min) 65 (1) CHF (congestive heart failure) Heart failure chronicity: acute Heart failure type: unspecified Qualified Code(s): I50.9 - Heart failure, unspecified (2) Acute respiratory failure Respiratory failure complication: hypoxia and hypercapnia Qualified Code(s): J96.01 - Acute respiratory failure with hypoxia; J96.02 - Acute respiratory failure with hypercapnia (3) Pulmonary edema Chronicity: acute Qualified Code(s): J81.0 - Acute pulmonary edema (4) Acute on chronic congestive heart failure Heart failure type: combined systolic and diastolic Qualified Code(s): I50.43 - Acute on chronic combined systolic (congestive) and diastolic (congestive) heart failure (5) Hypertension Hypertension type: unspecified Qualified Code(s): I10 - Essential (primary) hypertension (6) CHF (congestive heart failure) Heart failure chronicity: acute on chronic Heart failure type: unspecified Qualified Code(s): I50.9 - Heart failure, unspecified
--- NOTE | 2019-10-31 22:34 | Procedure Note ---
Procedure Note Date of Service October 31, 2019 Procedure: Shroudman Indwelling Peripherally Inserted IV Catheter Placement Attending: Dr. Menendez APC: Edouard Simpson PA-C Indication: Need for IV Access, Poor Vascular Access Anesthesia: None Consent implied in the setting of necessary intravenous assess given need for multiple occasions. A time-out was completed verifying correct patient, procedure, site, positioning, and implant(s) or special equipment if applicable. Utilizing bedside ultrasound, vascularity of the RIGHT upper extremity was assessed. Vessel size was noted for appropriate catheter selection and skin was marked with gentle pressure. Patients RIGHT upper extremity was prepped and draped in the usual sterile fashion utilizing chlorhexidine. Ultrasound guidance was used to aid needle placement. An 18 g Endurance Catheter was introduced into the RIGHT cephalic vein under direct ultrasound guidance. Guide wire was easily deployed without resistance. Catheter was threaded over the guide wire without resistance and the entire apparatus was removed intact. Good venous blood return was noted in the catheter. The IV catheter was easily flushed with sterile saline flush. Sterile clave was attached to the end of the catheter and good blood return was again noted. Tourniquet was released. StatLock device and ster ile dressing were applied. The patient tolerated the procedure well. Blood Loss: Minimal Complications: None Procedural Ultrasound Guidance: Procedure Date: 10/31/2019 Indication: Poor Vascular Access Attending: Dr. Menendez APC: Edouard Simpson PA-C Artery/Veins Identified: YES Access confirmed in Vein with ultrasound: YES Complications: NONE Patient tolerated procedure: WELL Coding CPT Codes Tubes, Drains, and Vasc Access - Tubes, Drains, and Vasc Access: [id number] Venipuncture, Age 4/>Req phys skill, (sep proc), Dx/Tx (not rtn) ([id number]) [facility] [place] Procedure Codes (Charges) Tubes, Drains, and Vasc Access Procedure 1: Tubes, Drains, and Vasc Access: [id number] Venipuncture, Age 4/>Req phys skill, (sep proc), Dx/Tx (not rtn)
[2019-10-31] MEDS: fentaNYL DRIP 1,250 MCG/250 ML BAG IV PRN (22:36)
[2019-10-31] MEDS: propofoL 1,000 MG/100 ML VIAL IV SCH (22:37)
--- NOTE | 2019-10-31 23:00 | Procedure Note ---
Procedure Note Date of Service October 31, 2019 Procedure: Arterial Line Placement Attending: Dr. Menendez APC: Edouard Simpson PA-C Indication: Monitoring on Pressors Anesthesia: None Emergent consent implied in the setting of an acutely decompensated respiratory failure patient requiring close hemodynamic monitoring and frequent ABGs. A time-out was completed verifying correct patient, procedure, site, positioning, and implant(s) or special equipment if applicable. Allens test was performed to ensure adequate perfusion. Patients RIGHT wrist was prepped and draped in the usual sterile fashion. Ultrasound guidance was used to aid needle placement. A 20g Arrow arterial line was introduced into the RIGHT Radial artery. Catheter was threaded, and the needle was removed with appropriate blood return. Good waveform was observed. The patient tolerated the procedure well. Confirmation of placement with ultrasound. Blood Loss: Minimal Complications: None Procedural Ultrasound Guidance: Procedure Date: 10/31/2019 Indication: Frequent ABGs, Close hemodynamic monitoring, Frequent lab draws. Attending: Dr. Menendez APC: Edouard Simpson PA-C Artery Identified: YES Line confirmed in Artery with ultrasound: YES Complications: NONE Patient tolerated procedure: WELL Coding CPT Codes Tubes, Drains, and Vasc Access - Tubes, Drains, and Vasc Access: [id number] Place Catheter In Artery ([id number]) [facility] [place] Procedure Codes (Charges) Tubes, Drains, and Vasc Access Procedure 2: Tubes, Drains, and Vasc Access: [id number] Place Catheter In Artery
[2019-10-31 23:28] LABS: iSTAT Art Bld Gas pCO2 Correct 53 mmHg (35-46); iSTAT Art Bld Gas pH Corrected 7.256 (7.35-7.45); iSTAT Arterial Blood Gas HCO3 23 meg/L (19-24); iSTAT Arterial Blood Gas pCO2 51 mmHg (35-46); iSTAT Arterial Blood Gas pH 7.27 (7.35-7.45); iSTAT Arterial Blood Gas pO2 119 mmHg (80-95); iSTAT Arterial Blood Gas pO2 C 123; iSTAT Carbon Dioxide 25 mmol/L (24-31); iSTAT FiO2 100 %; iSTAT Hematocrit 46 % (42-52); iSTAT Hemoglobin 15.6 g/dl (14.0-18.0); iSTAT Potassium 3.8 mmol/L (3.3-5.0); iSTAT Site Art Line; iSTAT Sodium 141 mmol/L (135-144)
[2019-11-01] MEDS: propofoL 1,000 MG/100 ML VIAL IV SCH ×7 (00:31→22:59)
[2019-11-01 01:17] LABS: iSTAT Art Bld Gas pCO2 Correct 39 mmHg (35-46); iSTAT Art Bld Gas pH Corrected 7.423 (7.35-7.45); iSTAT Arterial Blood Gas HCO3 25 meg/L (19-24); iSTAT Arterial Blood Gas pCO2 38 mmHg (35-46); iSTAT Arterial Blood Gas pH 7.43 (7.35-7.45); iSTAT Arterial Blood Gas pO2 281 mmHg (80-95); iSTAT Arterial Blood Gas pO2 C 283; iSTAT Carbon Dioxide 26 mmol/L (24-31); iSTAT FiO2 100 %; iSTAT Hematocrit 41 % (42-52); iSTAT Hemoglobin 13.9 g/dl (14.0-18.0); iSTAT Potassium 4.3 mmol/L (3.3-5.0); iSTAT Site Art Line; iSTAT Sodium 140 mmol/L (135-144)
[2019-11-01 03:54] LABS: Basophils # (auto) 0.01 K/uL (0-0.2); Basophils % (auto) 0.1 %; Eosinophils # (auto) 0.01 K/uL (0-0.5); Eosinophils % (auto) 0.1 %; Hematocrit (blood only) 37.4 % (42-52); Hemoglobin 12.2 g/dL (14.0-18.0); Immature Granulocytes # (auto) 0.04 K/uL (0.00-0.02); Immature Granulocytes % (auto) 0.3 %; Lymphocytes % (auto) 12.5 %; Mean Corpuscular Hemoglobin 26.8 pg (25-34); Mean Corpuscular Hgb Conc 32.6 g/dL (32-36); Mean Corpuscular Volume 82.2 fL (80-100); Mean Platelet Volume 10.1 fL (7.4-10.4); Monocytes # (auto) 0.69 K/uL (0.11-0.59); Monocytes % (auto) 4.8 %; Neutrophils # (auto) 11.88 K/uL (1.4-6.5); Neutrophils % (auto) 82.2 %; Platelet Count 183 K/uL (130-400); RDW Coefficient of Variation 17.7 % (11.5-14.5); RDW Standard Deviation 53.3 fL (36.4-46.3); Red Blood Count 4.55 M/uL (4.7-6.1); White Blood Count 14.43 K/uL (4.8-10.8)
[2019-11-01 04:05] LABS: INR 1.2 (0.9-1.1); Partial Thromboplastin Ratio 0.9; Partial Thromboplastin Time 26.5 Seconds (21.0-31.0); Prothrombin Time 12.1 Seconds (9.0-12.0)
[2019-11-01 04:15] LABS: Albumin Level 2.5 gm/dl (3.4-5.0); Bilirubin Direct 0.5 mg/dl (0-0.2); Calcium 7.6 mg/dl (8.5-10.1); Creatinine Clr Calc Pharmacy 97.8 ml/min; Est GFR (African American) 68.4; Magnesium 1.5 mg/dl (1.8-2.4); Phosphorus 3.2 mg/dl (2.5-4.9); Potassium 3.9 mmol/L (3.5-5.1)
[2019-11-01 04:19] LABS: Bilirubin,Total 1.3 mg/dl (0.2-1)
[2019-11-01] MEDS ORDERED: MAGNESIUM SULFATE / D5W 1 GM/100 ML BAG IV ONE ×2 (05:17→22:42)
[2019-11-01 05:30] LABS: iSTAT Art Bld Gas pCO2 Correct 30 mmHg (35-46); iSTAT Art Bld Gas pH Corrected 7.471 (7.35-7.45); iSTAT Arterial Blood Gas HCO3 22 meg/L (19-24); iSTAT Arterial Blood Gas pCO2 29 mmHg (35-46); iSTAT Arterial Blood Gas pH 7.48 (7.35-7.45); iSTAT Arterial Blood Gas pO2 79 mmHg (80-95); iSTAT Arterial Blood Gas pO2 C 84; iSTAT Carbon Dioxide 23 mmol/L (24-31); iSTAT FiO2 50 %; iSTAT Hematocrit 37 % (42-52); iSTAT Hemoglobin 12.6 g/dl (14.0-18.0); iSTAT Site Art Line; iSTAT Sodium 141 mmol/L (135-144)
[2019-11-01] MEDS: HEPARIN SOD 5,000 UNIT/0.5 ML VIAL SQ SCH ×3 (05:59→21:07)
[2019-11-01] MEDS: FUROSEMIDE 80 MG in SYRINGE 0 ML IV SCH ×2 (05:59→16:55)
--- NOTE | 2019-11-01 09:11 | Critical Care Progress Note ---
Date of Service November 01, 2019 Assessment & Plan (1) Admitted to intensive care unit: Reason Critically Ill: 43-year-old male with flash pulmonary edema in the setting of decompensated congestive heart failure resulting in respiratory distress requiring emergent endotracheal intubation. Patient has a history of frequent hospitalizations and medical noncompliance. He also has underlying sleep disordered breathing and is intermittently compliant with his BiPAP 24-hour events: Patient presented to the emergency room. He did not respond to nitroglycerin and BiPAP and was subsequently intubated. He was transferred to the ICU. An endurance catheter was placed under ultrasound guidance. He continued to diurese. He has experienced improvement in his vent settings and hemodynamics. Recommendations NEURO - Continue sedation with fentanyl and propofol. Daily sedation breaks to start tomorrow morning. CARDIAC/VASCULAR - Acute exacerbation of chronic heart failure. He appears to be fluid overloaded with bilateral pleural effusions and pulmonary edema. Continue 80 mg of Lasix IV every 12 and follow. May require addition of metolazone or Aldactone. Discontinue nitroglycerin. Restart beta-mansoor once blood pressure and heart rate allow. Continue aspirin. RESPIRATORY - Acute hypoxemic respiratory failure secondary to pulmonary edema: Continue current vent settings but in light of respiratory alkalosis will decrease gross respiratory rate down to 20. Wean PEEP and FiO2 as tolerated. No indication for thoracentesis currently as a suspect these effusions are transudate. Patient does have bibasilar opacities and will check procalcitonin and sputum culture and empirically start ertapenem pending these results. Will require extubation to BiPAP given his history of sleep disordered breathing. GI/NUTRITION - Continue Protonix. Nutritional consult for initiation of tube feeding. RENAL/LYTES - Initiate electrolyte replacement protocol. Mild increase in serum creatinine up to 1.45 today. Baseline is less than 1. We will continue to follow with diuretics and blood pressure control. - De Dios in place - Strict I&Os. ENDO - Continue glycemic control. Should be able to manage with sliding scale insulin HEME - Stable H&H ID - Patient with mildly elevated white blood cell count which is nonspecific however given the fact that he is frequently been in and out of the hospital and has some basilar infiltrates will obtain tracheal aspirate for culture and sensitivity and check pro calcitonin. Start ertapenem for now. If tracheal aspirate and is negative and procalcitonin unrevealing, can likely discontinue antibiotics in the next 24 to 48 hours. LINES/IV ACCESS - PIVs x2 Endurance catheter to RIGHT upper extremity ET tube OG De Dios catheter RIGHT radial arterial line DVT PROPHYLAXIS - Heparin SCDs I have personally spent 40 minutes of critical care time in the direct m anagement of this patient. This is a life/limb threatening event. This includes time spent evaluating patient, direct bedside care, chart review, placing orders, interpretation of diagnostic studies, discussion with consultants, patient, and family members, as well as other required patient management activities. Discussed with bedside critical care nurse This time is exclusive of all separately billable procedures, and teaching time and separate from and in addition to any other critical care service time. (2) CHF (congestive heart failure): (3) Hypertensive emergency: (4) Acute respiratory failure: (5) Flash pulmonary edema: Admission and Anticipated Discharge Date Admission Date: October 31, 2019 Subjective Patient intubated and sedated Review of Systems Review of Systems: Unobtainable due to endotracheal tube Physical Exam Constitutional: + morbidly obese, + mechanically ventilated and + edematous Sedated. Patient is morbidly obese which decreases the sensitivity of physical exam Eyes: PERRL, conjunctivae normal, anicteric sclerae Neck: trachea midline, no thyromegaly Respiratory: normal respiratory effort Auscultation: + crackles; no wheezes Cardiovascular: Rate/Rhythm: regular rate Heart Sounds: normal S1 and normal S2; no murmur Extremities: + edema Gastrointestinal (Abdomen): normal bowel sounds, soft, nontender, no hepatosplenomegaly Musculoskeletal: Extremities: extremities normal to inspection Skin: no rashes, warm and dry Neurologic: Nonfocal exam Lymphatic: no cervical lymphadenopathy Results & Data Results & Data ([facility] [place]) Vital Signs (Past 12 Hours) Vital Signs Temp Pulse Pulse Resp BP BP Pulse Ox 11/01/19 07:36 86 24 94 11/01/19 06:13 88 101/56 L 93 11/01/19 05:15 89 24 94 11/01/19 05:13 89 98/57 L 95 11/01/19 04:13 37.4 C 89 97 11/01/19 04:00 90 30 H 97 11/01/19 03:13 89 98/57 L 99 11/01/19 02:13 91 H 98 11/01/19 01:19 96 H 89/49 L 99 11/01/19 01:05 96 H 30 H 99 11/01/19 00:25 102 H 127/83 98 10/31/19 23:25 102 H 37 H 93 10/31/19 23:17 117 H 129/70 94 10/31/19 23:15 119 H 95 10/31/19 23:01 124 H 148/85 H 93 10/31/19 23:00 123 H 92 10/31/19 22:46 124 H 150/85 H 95 10/31/19 22:45 128 H 95 10/31/19 22:30 127 H 93 10/31/19 22:27 124 H 171/134 H 93 10/31/19 22:15 37.6 C H 125 H 130 H 28 H 168/112 H 91 10/31/19 22:12 130 H 24 88 L 10/31/19 22:00 129 H 87 L 10/31/19 21:40 90 10/31/19 21:36 130 H 249/163 H 89 L 10/31/19 21:31 126 H 235/151 H 89 L 10/31/19 21:30 127 H 87 L 10/31/19 21:26 124 H 255/164 H 85 L 10/31/19 21:25 126 H 86 L 10/31/19 21:21 123 H 268/183 H 88 L 10/31/19 21:17 127 H 240/165 H 89 L 10/31/19 21:15 132 H 88 L 10/31/19 21:10 136 H 208/147 H 91 Laboratory Results 11/01/19 03:32 11/01/19 03:32 10/31/19 19:25 VBG pH 7.30 L VBG pCO2 51 H VBG pO2 37 VBG HCO3 24 VBG O2 Saturation 64.0 VBG Base Excess -2.7 BNP elevated at 5242 Albumin 2.5 Total protein 6.0 Diagnostic Findings Chest x-ray was independently reviewed. Film was done at 7:[address] this morning[address] Pacemaker in place. Endotracheal tube in good position. There is cardiomegaly with bibasilar pulmonary infiltrates and pulmonary edema with probable bilateral pleural effusions Coding Level of Care Code Critical Care 1st 30-74 mins Diagnoses Admitted to intensive care unit Z78.9 CHF (congestive heart failure) I50.9 Heart failure chronicity: acute Heart failure type: unspecified Hypertensive emergency I16.1 Acute respiratory failure J96.01; J96.02 Respiratory failure complication: hypoxia and hypercapnia Flash pulmonary edema J81.0 Time Spent (min) 45 (1) CHF (congestive heart failure) Heart failure chronicity: acute Heart failure type: unspecified Qualified C ode(s): I50.9 - Heart failure, unspecified (2) Acute respiratory failure Respiratory failure complication: hypoxia and hypercapnia Qualified Code(s): J96.01 - Acute respiratory failure with hypoxia; J96.02 - Acute respiratory failure with hypercapnia
[2019-11-01] MEDS ORDERED: ICU ELECTROLYTE REPLACEMENT PROTOCOL PRN (09:23)
--- NOTE | 2019-11-01 09:52 | XRay Report ---
SINGLE VIEW CHEST CLINICAL HISTORY: Respiratory failure. FINDINGS: An AP, portable, semierect chest radiograph is compared to study dated 10/31/2019 and correl ated with chest CT dated 10/26/2019. The examination is degraded by portable technique and patient rot ation. Endotracheal and enteric tubes are unchanged in position. A cardiac AICD is again noted. The h eart is enlarged. There is pulmonary vascular congestion with evidence of interstitial edema. There a re layering pleural effusions with bibasilar consolidation. No pneumothorax is seen. The bony thorax is grossly intact. IMPRESSION: 1. Stable lines and tubes. 2. Cardiomegaly and AICD with evidence of congestive failure and interstitial edema. This is similar in appearance to yesterday. 3. Layering pleural effusions with bibasilar consolidation. ACT 112: Negative or not required by law. Electronically signed by: Abhilash Carpio M.D. 11/01/2019 9:50 AM
[2019-11-01] MEDS: FAMOTIDINE 20 MG in SYRINGE 3 ML IV SCH ×2 (10:59→21:12)
[2019-11-01] MEDS ORDERED: PERFLUTREN LIPID MICROSPHERE (DEFINITY) IV ONE (10:59)
[2019-11-01] MEDS: ERTAPENEM SODIUM 1,000 MG in SODIUM CHLORIDE 0.9% 50 ML IV SCH (11:03)
[2019-11-01] MEDS: fentaNYL DRIP 1,250 MCG/250 ML BAG IV PRN (13:21)
--- NOTE | 2019-11-01 14:37 | XCELERA ---
[id number]
[2019-11-01] MEDS ORDERED: PEPTAMEN INTENSE VHP 1.0 CAL 1,000 ML BAG OG SCH (15:00)
[2019-11-01] MEDS ORDERED: PEPTAMEN 1.5 CAL 1,000 ML BAG OG SCH (16:45)
--- NOTE | 2019-11-01 16:48 | Electrocardiogram Report ---
Test Reason : Blood Pressure : / mmHG Vent. Rate : 136 BPM Atrial Rate : 136 BPM P-R Int : 136 ms QRS Dur : 100 ms QT Int : 332 ms P-R-T Axes : 021 -28 072 degrees QTc Int : 499 ms Poor data quality, interpretation may be adversely affected Sinus tachycardia with occasional Premature ventricular complexes Possible Left atrial enlargement Borderline ECG When compared with ECG of 26-OCT-2019 12:43, Premature ventricular complexes are now Present Confirmed by Bertrand Polanco ([id number]) on 11/01/2019 4:47:31 PM Referred By: REFERRED SELF Confirmed By:Severiano Polanco
--- NOTE | 2019-11-01 16:53 | Electrocardiogram Report ---
Test Reason : Blood Pressure : / mmHG Vent. Rate : 088 BPM Atrial Rate : 088 BPM P-R Int : 148 ms QRS Dur : 092 ms QT Int : 422 ms P-R-T Axes : 032 -51 229 degrees QTc Int : 510 ms Normal sinus rhythm Possible Left atrial enlargement Left axis deviation Prolonged QT Abnormal ECG Confirmed by Bertrand Polanco ([id number]) on 11/01/2019 4:52:42 PM Referred By: REFERRED SELF Confirmed By:Severiano Polanco
[2019-11-01] MEDS: PROSOURCE NO CARB 30 ML/PKT OG SCH (17:26)
--- NOTE | 2019-11-01 19:08 | Hospitalist Progress Note ---
Date of Service November 01, 2019 Assessment & Plan (1) Admitted to intensive care unit: primary management per ICU (2) Acute on chronic heart failure with reduced ejection fraction and diastolic dysfunction: diuresis, supportive care. showing improvement (3) AICD (automatic cardioverter/defibrillator) present: No firing noted (4) NICM (nonischemic cardiomyopathy): See above (5) Diabetes mellitus type 2 with complications: glycemic control. (6) Obstructive sleep apnea: On ventilator. (7) COPD (chronic obstructive pulmonary disease): Xopenex nebulizers every 6 hours as needed (8) Noncompliance: struggles with diet restrictions, etc. frequently admissions for CHF. concerning on his ability to care for himself. (9) DVT prophylaxis: heparin SQ Admission and Anticipated Discharge Date Admission Date: October 31, 2019 Subjective no hpi or ROS - intubated. nursing ntoes that he's doing well on vent and w diuresis nursing noted that wanted called w update - agreed to do so, noted it might be later in the day until all patient care was complete. when i then called (7p) and introduced myself, said "i'm not talking to you" and hung up. called nursing - she apparently updated extensively earlier in the day/answered all questions. many, many other people were calling for pt all day - and nursing had to keep redirecting them that they could not talk to pt at this time and would need to call for updates -- then called but apparently did not introduce herself on the phone so when nursing said she would need to call she then got upset and said that she was the . this was probably only an hour before i called. Review of Systems Review of Systems: All systems reviewed & are unremarkable except as noted in HPI & below Physical Exam Physical Exam: gen intubated sedated nad heent nc at mmm ETT in place no breakdown noted breathing evenly on vent no focal neuro deficits skin no pallor Results & Data Results & Data ([facility]) Vital Signs (Past 12 Hours) Vital Signs Temp Pulse Resp BP Pulse Ox 11/01/19 18:00 99.3 F 81 117/75 95 11/01/19 17:01 87 114/84 98 11/01/19 16:35 82 20 94 11/01/19 16:01 99.1 F 82 104/78 95 11/01/19 15:00 82 126/78 95 11/01/19 14:00 99.3 F 80 111/85 94 11/01/19 13:47 64 20 93 11/01/19 13:00 78 104/77 95 11/01/19 12:00 99.0 F 79 97/60 L 93 11/01/19 11:33 82 20 95 11/01/19 11:13 81 112/66 93 11/01/19 10:13 83 105/60 94 11/01/19 10:00 84 95 11/01/19 09:13 84 106/63 95 11/01/19 08:13 86 103/68 94 11/01/19 08:00 99.3 F 87 94 11/01/19 07:36 86 24 94 11/01/19 07:13 85 94/75 L 95 PG Care Time/CCT Total # of Minutes Spent Total Time Spent with Patient: Total time spent is greater than 50% in coordination of care (as documented) at patient's floor/unit and/or counseling patient: Coding Level of Care Code 68714 Subseq Hosp Care Lvl 2 Diagnoses Admitted to intensive care unit Z78.9 Acute on chronic heart failure with reduced ejection fraction and diastolic dysfunction I50.43 AICD (automatic cardioverter/defibrillator) present Z95.810 NICM (nonischemic cardiomyopathy) I42.8 Diabetes mellitus type 2 with complications E11.8 Obstructive sleep apnea G47.33 COPD (chronic obstructive pulmonary disease) J44.9 COPD type: unspecified COPD Noncompliance Z91.19 DVT prophylaxis Z29.9 (1) COPD (chronic obstructive pulmonary disease) COPD type: unspecified COPD Qualified Code(s): J44.9 - Chronic obstructive pulmonary disease, unspecified
[2019-11-01] MEDS ORDERED: propofoL 1,000 MG/100 ML VIAL IV SCH (20:30)
[2019-11-01 22:17] LABS: Potassium 3.5 mmol/L (3.5-5.1)
[2019-11-01 22:18] LABS: Magnesium 1.9 mg/dl (1.8-2.4)
[2019-11-01] MEDS: POTASSIUM CHLORIDE / WTR 10 MEQ/100 ML PLCT IV SCH ×2 (22:55→23:55)
[2019-11-02] MEDS: POTASSIUM CHLORIDE / WTR 10 MEQ/100 ML PLCT IV SCH ×9 (00:59→23:02)
[2019-11-02] MEDS: propofoL 1,000 MG/100 ML VIAL IV SCH ×2 (02:23→06:05)
[2019-11-02 05:21] LABS: Basophils # (auto) 0.01 K/uL (0-0.2); Basophils % (auto) 0.1 %; Eosinophils # (auto) 0.17 K/uL (0-0.5); Eosinophils % (auto) 2.5 %; Hematocrit (blood only) 35.4 % (42-52); Hemoglobin 11.6 g/dL (14.0-18.0); Immature Granulocytes # (auto) 0.01 K/uL (0.00-0.02); Immature Granulocytes % (auto) 0.1 %; Lymphocytes % (auto) 24.6 %; Mean Corpuscular Hemoglobin 27.1 pg (25-34); Mean Corpuscular Hgb Conc 32.8 g/dL (32-36); Mean Corpuscular Volume 82.7 fL (80-100); Mean Platelet Volume 10.5 fL (7.4-10.4); Monocytes # (auto) 0.59 K/uL (0.11-0.59); Monocytes % (auto) 8.6 %; Neutrophils # (auto) 4.42 K/uL (1.4-6.5); Neutrophils % (auto) 64.1 %; Platelet Count 158 K/uL (130-400); RDW Coefficient of Variation 18.2 % (11.5-14.5); Red Blood Count 4.28 M/uL (4.7-6.1)
[2019-11-02 05:30] LABS: INR 1.1 (0.9-1.1); Partial Thromboplastin Time 27.5 Seconds (21.0-31.0); Prothrombin Time 11.6 Seconds (9.0-12.0)
[2019-11-02 05:44] LABS: iSTAT Art Bld Gas pCO2 Correct 36 mmHg (35-46); iSTAT Art Bld Gas pH Corrected 7.462 (7.35-7.45); iSTAT Arterial Blood Gas HCO3 26 meg/L (19-24); iSTAT Arterial Blood Gas pCO2 36 mmHg (35-46); iSTAT Arterial Blood Gas pH 7.47 (7.35-7.45); iSTAT Arterial Blood Gas pO2 74 mmHg (80-95); iSTAT Arterial Blood Gas pO2 C 75; iSTAT Carbon Dioxide 27 mmol/L (24-31); iSTAT FiO2 35 %; iSTAT Hematocrit 34 % (42-52); iSTAT Hemoglobin 11.6 g/dl (14.0-18.0); iSTAT Potassium 3.5 mmol/L (3.3-5.0); iSTAT Site Art Line; iSTAT Sodium 141 mmol/L (135-144)
[2019-11-02 05:44] LABS: Albumin Level 2.5 gm/dl (3.4-5.0); BUN Creatinine Ratio 15.5 (10-20); Calcium 8.1 mg/dl (8.5-10.1); Creatinine Clr Calc Pharmacy 88.6 ml/min; Est GFR (African American) 60.7; Est GFR (Non-African American) 52.4; Magnesium 2.3 mg/dl (1.8-2.4); Potassium 3.7 mmol/L (3.5-5.1)
[2019-11-02 05:54] LABS: Bilirubin Direct 0.4 mg/dl (0-0.2); Bilirubin,Total 1.1 mg/dl (0.2-1); Phosphorus 4.6 mg/dl (2.5-4.9)
[2019-11-02] MEDS: HEPARIN SOD 5,000 UNIT/0.5 ML VIAL SQ SCH ×3 (06:05→21:17)
[2019-11-02] MEDS: FUROSEMIDE 80 MG in SYRINGE 0 ML IV SCH (06:05)
[2019-11-02] MEDS ORDERED: ASPIRIN 81 MG CHEW ONE (07:26)
[2019-11-02] MEDS: GABAPENTIN 300 MG CAP PO SCH (07:37)
[2019-11-02] MEDS: ASPIRIN 81 MG CHEW PO SCH (07:37)
[2019-11-02] MEDS: PROSOURCE NO CARB 30 ML/PKT OG SCH ×3 (07:37→17:14)
[2019-11-02] MEDS: FAMOTIDINE 20 MG in SYRINGE 3 ML IV SCH ×2 (07:38→21:18)
--- NOTE | 2019-11-02 08:02 | Critical Care Progress Note ---
Date of Service November 02, 2019 Assessment & Plan (1) Admitted to intensive care unit: Reason Critically Ill: 43-year-old male with flash pulmonary edema in the setting of decompensated congestive heart failure resulting in respiratory distress requiring emergent endotracheal intubation. Patient has a history of frequent hospitalizations and medical noncompliance. He also has underlying sleep disordered breathing and is intermittently compliant with his BiPAP 24-hour events: diuresed with improved CXR and mechanical ventilator settings. Recommendations NEURO - Sedation break this am and SBT if does well. CARDIAC/VASCULAR - Acute exacerbation of chronic heart failure. Improved with diuresis. Decrease lasix today but will need to follow SCr - slight elevation today. Restart metoprolol, hydralazine as needed. RESPIRATORY - Acute hypoxemic respiratory failure secondary to pulmonary edema: Improved mec hanics and CXR today with diuresis. Sedation break and SBT with possible extubation if does well. Will need to extubate to BIPAP 15/8 and continue bipap nightly. . GI/NUTRITION - Continue Protonix. Tolerating TF currently, will hold for SBT and possible extubation. RENAL/LYTES - Mild increase in SCr today. Decrease lasix and follow - De Dios in place - Strict I&Os. ENDO - Continue glycemic control. Should be able to manage with sliding scale insulin HEME - Stable H&H ID - D#2 ertapenem for possible PNA. Resp cultures pending. PCT elevated, will recheck in AM. Continue for now. LINES/IV ACCESS - PIVs x2 Endurance catheter to RIGHT upper extremity ET tube OG De Dios catheter RIGHT radial arterial line DVT PROPHYLAXIS - Heparin SCDs Discussed with ICU bedside RN. No family immediately available. (2) CHF (congestive heart failure): (3) Hypertensive emergency: (4) Acute respiratory failure: (5) Flash pulmonary edema: Admission and Anticipated Discharge Date Admission Date: October 31, 2019 Subjective intubated and sedated Review of Systems Review of Systems: Unobtainable due to endotracheal tube Physical Exam 2 Constitutional: + morbidly obese, + mechanically ventilated and + edematous Eyes: PERRL, conjunctivae normal, anicteric sclerae Neck: trachea midline, no thyromegaly Respiratory: normal respiratory effort Auscultation: + crackles; no wheezes Cardiovascular: Rate/Rhythm: regular rate Heart Sounds: normal S1 and normal S2; no murmur Extremities: + edema Gastrointestinal (Abdomen): normal bowel sounds, soft, nontender, no hepatosplenomegaly Musculoskeletal: Extremities: extremities normal to inspection Skin: no rashes, warm and dry Lymphatic: no cervical lymphadenopathy Results & Data Results & Data ([facility]) Vital Signs (Past 12 Hours) Vital Signs Temp Pulse Resp BP Pulse Ox 11/02/19 07:20 72 20 93 11/02/19 07:01 74 117/79 93 11/02/19 06:00 73 20 122/80 94 11/02/19 05:18 76 20 94 11/02/19 05:01 72 20 115/77 93 11/02/19 04:01 72 20 114/79 94 11/02/19 03:01 72 20 112/76 94 11/02/19 03:00 73 11/02/19 02:01 75 20 108/72 94 11/02/19 01:29 58 L 20 95 11/02/19 01:01 71 125/82 95 11/02/19 00:01 77 120/64 93 11/02/19 00:00 37.3 C 11/01/19 23:00 75 121/70 94 11/01/19 22:35 61 20 94 11/01/19 22:00 77 119/78 94 11/01/19 21:00 77 20 115/72 95 11/01/19 20:00 81 20 116/79 95 Laboratory Results 11/02/19 04:34 11/02/19 04:34 Cultures, no growth to date I/O negative 2 L last 24 Diagnostic Findings CXR from today independently reviewed. Improved aeration in the bases with improving pleural effusions. Coding Level of Care Code 45787 Subs Hosp Care Lvl 3 Diagnoses Admitted to intensive care unit Z78.9 CHF (congestive heart failure) I50.9 Heart failure chronicity: acute Heart failure type: unspecified Hypertensive emergency I16.1 Acute respiratory failure J96.01; J96.02 Respiratory failure complication: hypoxia and hypercapnia Flash pulmonary edema J81.0 (1) CHF (congestive heart failure) Heart failure chronicity: acute Heart failure type: unspecified Qualified Code(s): I50.9 - Heart failure, unspecified (2) Acute respiratory failure Respiratory failure complication: hypoxia and hypercapnia Qualified Code(s): J96.01 - Acute respiratory failure with hypoxia; J96.02 - Acute respiratory failure with hypercapnia
[2019-11-02] MEDS ORDERED: HydrALAZINE HCL 20 MG/ML VIAL IV PRN (08:11)
[2019-11-02] MEDS: ERTAPENEM SODIUM 1,000 MG in SODIUM CHLORIDE 0.9% 50 ML IV SCH (08:13)
[2019-11-02] MEDS: METOPROLOL TARTRATE 25 MG TAB PO SCH ×2 (08:40→21:16)
--- NOTE | 2019-11-02 08:45 | XRay Report ---
XR chest 1V portable HISTORY: Respiratory failure. COMPARISON: Chest 11/01/2019. FINDINGS: The endotracheal and nasogastric tubes are unchanged in position. Is left-sided pacemaker/d efibrillator. No pneumothorax. The heart is enlarged. Pulmonary edema, bilateral pleural effusions, a nd bibasilar densities have improved. IMPRESSION: 1. Stable lines and tubes. 2. Interval improvement in the pulmonary edema, bilateral pleural effusions, and bibasilar densities. ACT 112: Negative or not required by law. Electronically signed by: Andrea Bear M.D. 11/02/2019 8:44 AM
[2019-11-02] MEDS ORDERED: METOPROLOL TARTRATE 1 MG/ML VIAL IV ONE (08:52)
[2019-11-02] MEDS ORDERED: METOPROLOL TARTRATE 1 MG/ML VIAL IV STA ×2 (08:52→09:07)
[2019-11-02] MEDS: HydrALAZINE HCL 20 MG/ML VIAL IV PRN ×3 (09:00→17:14)
[2019-11-02] MEDS ORDERED: ASPIRIN 81 MG ECTAB PO SCH (09:00)
[2019-11-02] MEDS: LABETALOL HCL IV 5 MG/ML 20ML IV PRN ×3 (10:12→21:18)
--- NOTE | 2019-11-02 11:08 | Electrocardiogram Report ---
Test Reason : Blood Pressure : / mmHG Vent. Rate : 078 BPM Atrial Rate : 078 BPM P-R Int : 164 ms QRS Dur : 114 ms QT Int : 400 ms P-R-T Axes : 017 -13 167 degrees QTc Int : 456 ms Normal sinus rhythm Possible Left atrial enlargement Abnormal ECG When compared with ECG of 01-NOV-2019 06:37, ST segement changes have resolved Confirmed by Bertrand Polanco ([id number]) on 11/02/2019 11:07:28 AM Referred By: REFERRED SELF Confirmed By:Severiano Polanco
--- NOTE | 2019-11-02 11:55 | Ultrasound Report ---
LEFT LOWER EXTREMITY VENOUS DOPPLER HISTORY: left calf pain and swelling COMPARISON STUDY: None. FINDINGS: There is normal compressibility, flow, and augmentation within the left lower extremity alice p venous system. IMPRESSION: No DVT within the left lower extremity. ACT 112: Negative or not required by law. Electronically signed by: Andrea Bear M.D. 11/02/2019 11:54 AM
[2019-11-02] MEDS: DICLOFENAC SOD 1% GEL 100 GM TUBE EXT SCH ×3 (13:29→21:17)
--- NOTE | 2019-11-02 16:15 | Hospitalist Progress Note ---
Date of Service November 02, 2019 Assessment & Plan (1) Admitted to intensive care unit: primary management per ICU (2) Acute on chronic heart failure with reduced ejection fraction and diastolic dysfunction: diuresis, supportive care. showing improvement - now off ventilator and on bipap (3) Left leg pain: strongly suspect calf cramp given palpable knot, tenderness, and improvement with OMT. however given BMI, acute CHF in ICU and just on vent/immobile - will check doppler to be safe (late addendum - negative) (4) AICD (automatic cardioverter/defibrillator) present: No firing noted (5) NICM (nonischemic cardiomyopathy): See above (6) Diabetes mellitus type 2 with complications: ongoing glycemic management (7) Obstructive sleep apnea: On bipap (8) COPD (chronic obstructive pulmonary disease): ongoing supportive care (9) Noncompliance: struggles with diet restrictions, etc. frequently admissions for CHF. concerning on his ability to care for himself. emphasized desperate need for lifestyle control. (10) DVT prophylaxis: heparin SQ Admission and Anticipated Discharge Date Admission Date: October 31, 2019 Subjective off ventilator, still hard to communicate due to respiratory status and bipap, but seems to deny significant dyspnea in current situation. wonders about and ?elizabeth. also c/o LLE pain. Review of Systems Review of Systems: very difficult to obtain due to respiratory status and bipap but seems to be otherwise negative except for as above Physical Exam Physical Exam: gen aao, seems oriented, nad but is on bipap. heent nc at mmm breathing unlabored on bipap no accessory muscles good effort skin no rashes n o pallor or icterus. LLE calf w palpable knot that is reproducibly tender - post isometric relaxation OMT done x3 repetitions w improvement in area of spasm although not improvement in pain Results & Data Results & Data ([facility]) Vital Signs (Past 12 Hours) Vital Signs Temp Pulse Resp BP Pulse Ox 11/02/19 15:13 99.1 F 99 H 24 149/91 H 93 11/02/19 14:02 101 H 25 H 194/113 H 93 11/02/19 13:01 87 28 H 157/103 H 97 11/02/19 12:01 99.3 F 87 30 H 141/101 H 96 11/02/19 11:01 99 H 28 H 156/113 H 93 11/02/19 10:42 90 34 H 93 11/02/19 10:01 94 H 33 H 163/112 H 92 11/02/19 09:22 99 H 29 H 93 11/02/19 09:15 104 H 92 11/02/19 09:07 108 H 200/116 H 11/02/19 09:03 105 H 90 11/02/19 09:02 106 H 190/102 H 91 11/02/19 08:33 97 H 19 94 11/02/19 08:00 99.3 F 79 137/94 92 11/02/19 07:20 72 20 93 11/02/19 07:01 74 117/79 93 11/02/19 06:00 73 20 122/80 94 11/02/19 05:18 76 20 94 11/02/19 05:01 72 20 115/77 93 PG Care Time/CCT Total # of Minutes Spent Total Time Spent with Patient: Total time spent is greater than 50% in coordination of care (as documented) at patient's floor/unit and/or counseling patient: Coding Level of Care Code 47363 Subseq Hosp Care Lvl 2 Diagnoses Admitted to intensive care unit Z78.9 Acute on chronic heart failure with reduced ejection fraction and diastolic dysfunction I50.43 Left leg pain M79.605 AICD (automatic cardioverter/defibrillator) present Z95.810 NICM (nonischemic cardiomyopathy) I42.8 Diabetes mellitus type 2 with complications E11.8 Obstructive sleep apnea G47.33 COPD (chronic obstructive pulmonary disease) J44.9 COPD type: unspecified COPD Noncompliance Z91.19 DVT prophylaxis Z29.9 (1) COPD (chronic obstructive pulmonary disease) COPD type: unspecified COPD Qualified Code(s): J44.9 - Chronic obstructive pulmonary disease, unspecified
[2019-11-02] MEDS: FUROSEMIDE 40 MG in SYRINGE 0 ML IV SCH (17:14)
[2019-11-02 20:52] LABS: Potassium 3.4 mmol/L (3.5-5.1)
[2019-11-02 20:53] LABS: Magnesium 2.1 mg/dl (1.8-2.4)
[2019-11-03] MEDS: POTASSIUM CHLORIDE / WTR 10 MEQ/100 ML PLCT IV SCH (00:02)
[2019-11-03 04:21] LABS: Basophils # (auto) 0.01 K/uL (0-0.2); Basophils % (auto) 0.1 %; Eosinophils % (auto) 2.7 %; Hematocrit (blood only) 37.8 % (42-52); Hemoglobin 12.5 g/dL (14.0-18.0); Immature Granulocytes # (auto) 0.03 K/uL (0.00-0.02); Immature Granulocytes % (auto) 0.4 %; Lymphocytes # (auto) 1.43 K/uL (1.2-3.4); Lymphocytes % (auto) 19.5 %; Mean Corpuscular Hemoglobin 27.4 pg (25-34); Mean Corpuscular Hgb Conc 33.1 g/dL (32-36); Mean Corpuscular Volume 82.7 fL (80-100); Mean Platelet Volume 10.4 fL (7.4-10.4); Monocytes # (auto) 0.73 K/uL (0.11-0.59); Monocytes % (auto) 9.9 %; Neutrophils # (auto) 4.94 K/uL (1.4-6.5); Neutrophils % (auto) 67.4 %; Platelet Count 194 K/uL (130-400); RDW Coefficient of Variation 18.4 % (11.5-14.5); RDW Standard Deviation 55.9 fL (36.4-46.3); Red Blood Count 4.57 M/uL (4.7-6.1); White Blood Count 7.34 K/uL (4.8-10.8)
[2019-11-03 04:34] LABS: INR 1.1 (0.9-1.1); Partial Thromboplastin Time 28.3 Seconds (21.0-31.0); Prothrombin Time 11.3 Seconds (9.0-12.0)
[2019-11-03 05:13] LABS: BUN Creatinine Ratio 16.8 (10-20); Calcium 8.4 mg/dl (8.5-10.1); Creatinine Clr Calc Pharmacy 116.5 ml/min; Est GFR (African American) 85.1; Est GFR (Non-African American) 73.4; Magnesium 2.4 mg/dl (1.8-2.4); Phosphorus 4.7 mg/dl (2.5-4.9); Potassium 3.9 mmol/L (3.5-5.1)
[2019-11-03] MEDS: HEPARIN SOD 5,000 UNIT/0.5 ML VIAL SQ SCH ×3 (05:49→22:21)
[2019-11-03] MEDS: FUROSEMIDE 40 MG in SYRINGE 0 ML IV SCH ×2 (05:49→17:07)
--- NOTE | 2019-11-03 07:35 | XRay Report ---
XR chest 1V portable HISTORY: 43 years-old Male f/u follow-up study in a patient with shortness of breath COMPARISON: Chest radiograph 11/02/2019 TECHNIQUE: Portable AP view of the chest FINDINGS: Status post extubation with removal of the enteric tube. Single lead left subclavian pacer/AICD redem onstrated. Cardiomegaly. Pulmonary vascular congestion with mild pulmonary edema. No pneumothorax. De creased size of the small pleural effusions with mildly improved aeration of the right lung base. Bib asilar airspace opacities, left greater than right. Bones appear grossly intact. IMPRESSION: 1. Status post extubation with removal of the enteric tube. 2. Cardiomegaly with unchanged pulmonary edema. 2. Decreased size of the pleural effusions with persistent bibasilar opacities. ACT 112: Negative or not required by law. The above report was generated using voice recognition software. It may contain grammatical, syntax o r spelling errors. Electronically signed by: Petr Irby M.D. 11/03/2019 7:34 AM
[2019-11-03] MEDS ORDERED: PHARMACY GLYCEMIC MGMT CONSULT PRN (08:15)
[2019-11-03] MEDS: GABAPENTIN 300 MG CAP PO SCH (08:18)
[2019-11-03] MEDS: METOPROLOL TARTRATE 25 MG TAB PO SCH (08:18)
[2019-11-03] MEDS: PROSOURCE NO CARB 30 ML/PKT OG SCH (08:20)
[2019-11-03] MEDS: ASPIRIN 81 MG CHEW PO SCH (08:20)
[2019-11-03] MEDS: DICLOFENAC SOD 1% GEL 100 GM TUBE EXT SCH ×4 (08:20→20:15)
[2019-11-03] MEDS ORDERED: GLUCOSE 10 TABS/TUBE PO PRN (08:30)
[2019-11-03] MEDS ORDERED: GLUCOSE 40% GEL 15 GM TUBE PO PRN (08:30)
[2019-11-03] MEDS ORDERED: CARBOHYDRATES FOR HYPOGLYCEMIA PO PRN (08:30)
[2019-11-03] MEDS ORDERED: DEXTROSE 50% 50 ML SYRINGE IV PRN (08:30)
[2019-11-03] MEDS ORDERED: GLUCAGON FOR INJ 1 MG VIAL IM PRN (08:30)
[2019-11-03] MEDS: INSULIN ASPART 100 UNITS/ML 3 ML PEN SC SCH ×4 (09:04→20:14)
[2019-11-03] MEDS: INSULIN HUMAN NPH SC SCH ×2 (09:05→17:06)
[2019-11-03] MEDS: FAMOTIDINE 20 MG in SYRINGE 3 ML IV SCH (09:06)
--- NOTE | 2019-11-03 09:10 | Critical Care Progress Note ---
Date of Service November 03, 2019 Assessment & Plan (1) Admitted to intensive care unit: Reason Critically Ill: 43-year-old male with flash pulmonary edema in the setting of decompensated congestive heart failure resulting in respiratory distress requiring emergent endotracheal intubation. Patient has a history of frequent hospitalizations and medical noncompliance. He also has underlying sleep disordered breathing and is intermittently compliant with his BiPAP 24-hour events: No issues overnight. Patient extubated yesterday. Denies any complaints. Recommendations NEURO - No issues today. CARDIAC/VASCULAR - Acute exacerbation of chronic heart failure. Continue IV diuretic therapy. Creatinine improved today. I suspect that many of his CHF issues are related to severe medical noncompliance. I had a lengthy discussion with Corie Mazariegos who his the CHF nurse practitioner. She notes a very lengthy history of medical noncompliance and diet noncompliance. He has seen numerous providers. I suspect that poor medical literacy is playing a significant role here. I would recommend a psychiatric consultation to determine medical decision-making capacity. Continue beta-mansoor and aspirin. RESPIRATORY - Patient is extubated. Continue BiPAP at night and while sleeping. GI/NUTRITION - Continue cardiac diet. No issues currently. RENAL/LYTES - Continue IV diuretic therapy. Creatinine improved. - De Dios in place - Strict I&Os. ENDO - Continue glycemic control. Should be able to manage with sliding scale insulin HEME - Stable H&H ID - Patient with rust colored sputum and bibasilar infiltrates. Likely related to CHF and atelectasis. Rechecking procalcitonin. Initial procalcitonin may have been elevated due to renal failure. Currently on IV ertapenem. Would recommend 7 days of antibiotics if procalcitonin continues to be elevated. Procalcitonin negative today, will discontinue antibiotics. DVT PROPHYLAXIS - Heparin SCDs Discussed with ICU bedside RN. No family immediately available. Patient is stable to be transferred to the floor. (2) CHF (congestive heart failure): (3) Hypertensive emergency: (4) Acute respiratory failure: (5) Flash pulmonary edema: Admission and Anticipated Discharge Date Admission Date: October 31, 2019 Subjective Patient is laying in bed. Nasal cannula in place. He denies any complaints today aside for chronic right-sided chest pain. No fevers or chills. He has an ongoing cough that is mildly productive. Tolerating diet. Voice is a bit weak from recent extubation. Review of Systems Review of Systems: All systems reviewed & are unremarkable except as noted in HPI & below Physical Exam Constitutional: + morbidly obese and + edematous Eyes: PERRL, conjunctivae normal, anicteric sclerae Neck: trachea midline, no thyromegaly Respiratory: normal respiratory effort Auscultation: + crackles; no wheezes Cardiovascular: Rate/Rhythm: regular rate Heart Sounds: normal S1 and normal S2; no murmur Extremities: + edema Gastrointestinal (Abdomen): normal bowel sounds, soft, nontender, no hepatosplenomegaly Musculoskeletal: Extremities: extremities normal to inspection Skin: no rashes, warm and dry Lymphatic: no cervical lymphadenopathy Results & Data Results & Data ([facility]) Vital Signs (Past 12 Hours) Vital Signs Temp Pulse Resp BP Pulse Ox 11/03/19 07:57 69 11/03/19 05:01 69 24 115/91 98 11/03/19 04:02 69 20 122/92 97 11/03/19 04:00 99.1 F 11/03/19 03:02 68 22 130/71 97 11/03/19 02:01 79 18 125/83 98 11/03/19 01:02 76 21 123/62 98 11/03/19 00:02 84 25 H 126/85 98 11/03/19 00:00 99.3 F 11/02/19 23:01 86 25 H 142/88 H 97 11/02/19 22:46 89 27 H 97 11/02/19 22:01 89 137/92 93 I reviewed vital signs, labs and chest imaging Coding Level of Care Code 58629 Subseq Hosp Care Lvl 3 Diagnoses Admitted to intensive care unit Z78.9 CHF (congestive heart failure) I50.9 Heart failure chronicity: acute Heart failure type: unspecified Hypertensive emergency I16.1 Acute respiratory failure J96.01; J96.02 Respiratory failure complication: hypoxia and hypercapnia Flash pulmonary edema J81.0 (1) CHF (congestive heart failure) Heart failure chronicity: acute Heart failure type: unspecified Qualified Code(s): I50.9 - Heart failure, unspecified (2) Acute respiratory failure Respiratory failure complication: hypoxia and hypercapnia Qualified Code(s): J96.01 - Acute respiratory failure with hypoxia; J96.02 - Acute respiratory failure with hypercapnia
[2019-11-03] MEDS ORDERED: POTASSIUM CHLORIDE 20 MEQ TABCR PO ONE (10:15)
--- NOTE | 2019-11-03 10:31 | Pharmacy Report ---
Glycemic Control Consultation - Date of Service November 03, 2019 - Scope Scope: Glycemic Pharmacist consulted for glycemic control and to write orders per [facility] inpatient glycemic control protocol. - Objective Weight: 156.3 kg Acclongecks BSG (last 24hrs): 11/02/19 11/02/19 11/03/19 17:19 20:39 04:09 Glucose 118 H POC Glucose 126 H 145 H 11/03/19 07:53 Glucose POC Glucose 135 H Laboratory Data (last 24hrs): 11/02/19 11/03/19 20:36 04:09 Potassium 3.4 L 3.9 Carbon Dioxide 28 Anion Gap 6.0 Creatinine 1.21 D Est Cr Clr Drug Dosing 116.5 - Recent Pertinent Medications Outpatient Anti-diabetic Regimen: * Significant outpatient non-adherence noted. Precise glycemic regimen the patient takes/receives is therefore in question. Currently, patient is listed as taking Trulicity and no outpatient insulin, which may or may not be accurate. Patient was noted to be on Humalog 50/50 previously but this is not listed this admission. * A1c = 7.9% % 09/12/19 The patient is currently receiving: * No insulin yet this admission Risk Factors for Insulin Resistance: * Infection: currently on ertapenem for possible PNA * Diet: Peptamen 1.5 tabitha initially. T2DM diet ordered 11/02 AM * Mechanical Ventilation: extubated 11/01 - Assessment & Plan Assessment & Plan: ASSESSMENT: * 43 yo M with T2DM well known to our glycemic service admitted 10/30 with acute respiratory failure and flash pulmonary edema. Was intubated in the ED and admitted to the ICU. Patient was extubated on 11/01. Patient has received no insulin since admission and BSG's have ranged 88-147 mg/dL over the last 48 hours. * Significant chronic outpatient non-adherence noted with frequent hospital admissions related to said non-adherence. Per H&P documentation, patient may benefit from placement at a nursing facility on discharge. * BSG's have been well controlled thus far without insulin. Despite this, patient now ordered a diet therefore anticipate need to initiate insulin at this time * Previous admission data reviewed - will utilize a regimen that worked well on previous admissions which consists of low-dose NPH (a total of 0.1 units/kg/day divided BIDM) with relatively loose Novolog parameters as compared to weight-based estimate PLAN FOR INPATIENT GLYCEMIC CONTROL: * Basal insulin * Insulin NPH 8 units SQ BIDM * Bolus insulin * NovoLog per scale ACHS or Q6hrs while NPO * Goal Range: Low 110 mg/dL - High 140 mg/dL * Correction Factor: 25 mg/dL/unit * Nutritional / Prandial insulin per carb ratio of 1 unit per 9 grams CHO consumed * Please note that the plan above was derived based on current level of insulin resistance and hospital stress. These recommendations are appropriate for inpatient admission only. Plan of care upon discharge will need to be reassessed to avoid potential outpatient hypo/hyperglycemia. Thank you.
[2019-11-03 10:58] LABS: iSTAT Arterial Blood Gas pH 7.33 (7.35-7.45)
[2019-11-03 10:59] LABS: iSTAT Arterial Blood Gas HCO3 23 meg/L (19-24); iSTAT Arterial Blood Gas pCO2 43 mmHg (35-46); iSTAT Arterial Blood Gas pO2 67 mmHg (80-95); iSTAT Carbon Dioxide 24 mmol/L (24-31)
--- NOTE | 2019-11-03 11:06 | Hospitalist Progress Note ---
Date of Service November 03, 2019 Assessment & Plan (1) Acute on chronic heart failure with reduced ejection fraction and diastolic dysfunction: acute decompensation improving with diuresis. long-standing habit of noncompliance with diet, meds, etc. now extubated from vent to NC O2 / BIPAP (with sleep). cont lasix 40mg BID. cont beta mansoor. cont entresto. cont aldactone. appreciate cardiology and ICU assistance. repeat labs in am. (2) Acute respiratory failure with hypoxia: Improving. 2nd to acute/chronic CHF. Intubated in the ER at presentation. Now extubated yesterday am. Cont NC O2 - wean as tolerated. BIPAP with sleep. Cont diuresis. Some concern for superimposed infectious process of lungs - remains on ertapenem. Consider repeat imaging in am although cxr today IS improved. (3) RUQ abdominal pain: Seems musculoskeletal. reproducible w/ palpation, worsened with movement. does not have a gall bladder. toradol x 1 dose. oxycodone prn. k-pad heating. check abd x-ray to r/o constipation/impaction. (4) Constipation: miralax added abd x-rays due to RUQ pain; assess bowel gas pattern, fecal load, etc (5) Obstructive sleep apnea: h/o such, but noncompliant with prior device by history. cont BIPAP while hospitalized w/ sleep. (6) Hypertension: Controlled with current medication regimen. (7) Diabetes mellitus type 2 with complications: pharmacy managing; appreciate their assistance. cont basal-bolus regimen. (8) COPD (chronic obstructive pulmonary disease): without exacerbation. defer on steroids. (9) AICD (automatic cardioverter/defibrillator) present: noted no recent discharges (10) Morbid obesity with BMI of 50.0-59.9, adult: BMI 52 (11) Intellectual disability: at least mild (12) DVT prophylaxis: heparin 7500 units TID consult PT, OT move from ICU to PCU Admission and Anticipated Discharge Date Admission Date: October 31, 2019 Subjective saw patient in ICU prior to transfer to PCU. he c/o right upper quadrant pain/right lower chest, worse with movement. eating breakfast did NOT worsen his pain. had poor appetite, however, with breakfast. dyspnea improved. tolerating BIPAP at night-time. tele stable overnight. no BM in 4 days. Review of Systems Constitutional: + fatigue; no fever and no chills Respiratory: + cough and + dyspnea on exertion Cardiovascular: as per Subjective / HPI and + chest pain; no orthopnea, no paroxysmal nocturnal dyspnea and no edema Gastrointestinal: no abdominal pain, no nausea and no vomiting Physical Exam Constitutional: + morbidly obese; no acute distress and no altered mental status ENMT: external ear and nose normal, oropharynx normal Respiratory: Auscultation: + diminished lung sounds (bases) and + crackles (minimal - bases ) Cardiovascular: Rate/Rhythm: regular rate and regular rhythm Heart Sounds: normal S1 and normal S2; no murmur Vessels: posterior tibial pulses present and dorsalis pedis pulses present; no JVD Extremities: no edema Chest (Breasts): Additional Comments: reproducible chest wall tenderness right lower costal margin Gastrointestinal (Abdomen): Inspection/Auscultation: abdomen not distended Percussion/Palpation: + abdomen tender (RUQ, with extension to right lower chest wall ); no hepatosplenomegaly Psychiatric: A+Ox3, euthymic affect Results & Data Results & Data ([facility]) Vital Signs (Past 12 Hours) Vital Signs Temp Pulse Resp BP Pulse Ox 11/03/19 10:01 78 24 123/76 92 11/03/19 09:01 79 27 H 121/75 88 L 11/03/19 08:00 37 C 79 24 96 11/03/19 07:57 69 11/03/19 07:01 79 20 121/66 97 11/03/19 07:00 67 20 98 11/03/19 06:01 69 18 125/77 98 11/03/19 06:00 72 18 98 11/03/19 05:01 69 24 115/91 98 11/03/19 04:02 69 20 122/92 97 11/03/19 04:00 37.3 C 11/03/19 03:02 68 22 130/71 97 11/03/19 02:01 79 18 125/83 98 11/03/19 01:02 76 21 123/62 98 11/03/19 00:02 84 25 H 126/85 98 11/03/19 00:00 37.4 C Laboratory Results Laboratory Results - last 24 hr 10/31/19 11/02/19 11/02/19 20:41 17:19 20:36 WBC RBC Hgb Hct MCV MCH MCHC RDW Std Deviation RDW Coeff of Zoltan Plt Count MPV Immature Gran % (Auto) Neut % (Auto) Lymph % (Auto) [place] % (Auto) Eos % (Auto) Baso % (Auto) Neut # (Auto) Lymph # (Auto) [place] # (Auto) Eos # (Auto) Baso # (Auto) Immature Gran # (Auto) PT INR APTT PTT Ratio POC pH 7.33 L POC pCO2 43 POC pO2 67 L POC HCO3 23 POC Total CO2 24 POC Base Excess -3.0 Sodium Potassium 3.4 L Chloride Carbon Dioxide Anion Gap BUN Creatinine Est Cr Clr Drug Dosing Est GFR ( Amer) Est GFR (Non-Af Amer) BUN/Creatinine Ratio Glucose POC Glucose 126 H Calcium Phosphorus Magnesium 2.1 Total Bilirubin Direct Bilirubin AST ALT Alkaline Phosphatase Total Protein Albumin Lipase Procalcitonin Specimen Hemolysis 11/02/19 11/03/19 11/03/19 20:39 04:09 04:09 WBC 7.34 RBC 4.57 L Hgb 12.5 L Hct 37.8 L MCV 82.7 MCH 27.4 MCHC 33.1 RDW Std Deviation 55.9 H RDW Coeff of Zoltan 18.4 H Plt Count 194 MPV 10.4 Immature Gran % (Auto) 0.4 Neut % (Auto) 67.4 Lymph % (Auto) 19.5 [place] % (Auto) 9.9 Eos % (Auto) 2.7 Baso % (Auto) 0.1 Neut # (Auto) 4.94 Lymph # (Auto) 1.43 [place] # (Auto) 0.73 H Eos # (Auto) 0.20 Baso # (Auto) 0.01 Immature Gran # (Auto) 0.03 H PT INR APTT PTT Ratio POC pH POC pCO2 POC pO2 POC HCO3 POC Total CO2 POC Base Excess Sodium 141 Potassium 3.9 Chloride 107 Carbon Dioxide 28 Anion Gap 6.0 BUN 20 H Creatinine 1.21 D Est Cr Clr Drug Dosing 116.5 Est GFR ( Amer) 85.1 Est GFR (Non-Af Amer) 73.4 BUN/Creatinine Ratio 16.8 Glucose 118 H POC Glucose 145 H Calcium 8.4 L Phosphorus 4.7 Magnesium 2.4 Total Bilirubin Cancelled Direct Bilirubin Cancelled AST Cancelled ALT Cancelled Alkaline Phosphatase Cancelled Total Protein Cancelled Albumin Cancelled Lipase Cancelled Procalcitonin Specimen Hemolysis 11/03/19 11/03/19 11/03/19 04:09 07:53 09:20 WBC RBC Hgb Hct MCV MCH MCHC RDW Std Deviation RDW Coeff of Zoltan Plt Count MPV Immature Gran % (Auto) Neut % (Auto) Lymph % (Auto) [place] % (Auto) Eos % (Auto) Baso % (Auto) Neut # (Auto) Lymph # (Auto) [place] # (Auto) Eos # (Auto) Baso # (Auto) Immature Gran # (Auto) PT 11.3 INR 1.1 APTT 28.3 PTT Ratio 1.0 POC pH POC pCO2 POC pO2 POC HCO3 POC Total CO2 POC Base Excess Sodium Potassium Chloride Carbon Dioxide Anion Gap BUN Creatinine Est Cr Clr Drug Dosing Est GFR ( Amer) Est GFR (Non-Af Amer) BUN/Creatinine Ratio Glucose POC Glucose 135 H Calcium Phosphorus Magnesium Total Bilirubin Direct Bilirubin AST ALT Alkaline Phosphatase Total Protein Albumin Lipase Procalcitonin 1.14 H Specimen Hemolysis PG Care Time/CCT Total # of Minutes Spent Total Time Spent with Patient: Total time spent is greater than 50% in coordination of care (as documented) at patient's floor/unit and/or counseling patient: Coding Level of Care Code 71638 Subseq Hosp Care Lvl 3 Diagnoses Acute on chronic heart failure with reduced ejection fraction and diastolic dysfunction I50.43 Acute respiratory failure with hypoxia J96.01 RUQ abdominal pain R10.11 Constipation K59.00 Constipation type: unspecified constipation type Obstructive sleep apnea G47.33 Hypertension I10 Hypertension type: essential hypertension Diabetes mellitus type 2 with complications E11.8 COPD (chronic obstructive pulmonary disease) J44.9 COPD type: unspecified COPD AICD (automatic cardioverter/defibrillator) present Z95.810 Morbid obesity with BMI of 50.0-59.9, adult E66.01; Z68.43 Intellectual disability F79 DVT prophylaxis Z29.9 (1) Constipation Constipation type: unspecified constipation type Qualified Code(s): K59.00 - Constipation, unspecified (2) Hypertension Hypertension type: essential hypertension Qualified Code(s): I10 - Essential (primary) hypertension (3) COPD (chronic obstructive pulmonary disease) COPD type: unspecified COPD Qualified Code(s): J44.9 - Chronic obstructive pulmonary disease, unspecified
[2019-11-03] MEDS: ERTAPENEM SODIUM 1,000 MG in SODIUM CHLORIDE 0.9% 50 ML IV SCH (11:39)
--- NOTE | 2019-11-03 14:17 | XRay Report ---
ABDOMEN 2 VIEWS CLINICAL HISTORY: Right-sided abdominal pain. FINDINGS: Supine and erect abdominal radiographs are correlated with abdominal CT dated 10/26/2019. Th ere is a nonobstructed abdominal bowel gas pattern. No evidence of intraperitoneal free air is seen. Cholecystectomy clips are noted in the right upper quadrant. There is only mild colonic fecal retenti on. No abnormal abdominal calcifications are identified. Phleboliths are observed in the pelvis. The bony structures are intact. The heart is enlarged. An AICD lead is noted. IMPRESSION: No acute abnormality is identified. Electronically signed by: Abhilash Carpio M.D. 11/03/2019 2:16 PM
--- NOTE | 2019-11-03 14:32 | Cardiology Consultation ---
Date of Consultation November 03, 2019 Assessment & Plan (1) Acute on chronic heart failure with reduced ejection fraction and diastolic dysfunction: Patient dated with pulmonary edema and hypertensive urgency likely as in past due to a lapse in medical therapies. Patient has responded to initial treatment and currently stable hemodynamically but hypertensive Begin to resume oral regimen. Patient on 100 mg p.o. twice daily of metoprolol succinate at home will begin at 50 mg twice daily and resume oral Entresto at usual dosing. Continue IV furosemide. Resume spironolactone Continue to treat sleep apnea We will consider adding urinary meds this admission that may help with hyperte nsion as well as urinary complaints (2) Acute respiratory failure: (3) NICM (nonischemic cardiomyopathy): (4) AICD (automatic cardioverter/defibrillator) present: Normal function without arrhythmia this admission (5) Nonischemic cardiomyopathy: (6) Hypertensive emergency: History of Present Illness Reason for Consultation: Acute on chronic decompensated systolic and diastolic heart failure with respiratory failure Requesting Physician: Dr. Hendrickson Attending Physician: Migue Packer History of Present Illness Patient is a very complex 43-year-old male with multiple past hospitalizations with underlying issues which include 1. Chronic combined systolic and diastolic heart failure, nonischemic cardiomyopathy, ejection fraction 25-30% 2. S/P single chamber ICD implantation on 04/08/19 - appropriate function. No arrhythmias per multiple device interrogations 3. Hypertension - uncontrolled today 4. Medication non compliance 5. Nonsustained ventricular tachycardia - stable. 6. MARIELENA, severe 7. Obesity 8. DM This institution and cardiovascular service. He carries an underlying history of chronic congestive heart failure with nonischemic cardiomyopathy. Per review of records he represented with signs and symptoms of acute on chronic heart failure and respiratory failure. Patient notes difficulties with weights at home and feels he was unable to weigh himself for at least 4 days prior to presentation. Was aware of increasing abdominal girth and lower extremity edema as well as worsening dyspnea. Patient feels he has been compliant with diuretics but notes limitations of frequent urination and urinary incontinence stressful maintaining medications. On presentation patient is in significant respiratory distress and required intubation. Markedly hypertensive on initial evaluation. Patient has responded to diuretics and was able to be extubated today Currently denies any chest pains tachypalpitations or dizziness. Notes no fevers chills or productive cough. Does wear respiratory appliance at home at night. Is complaining of frequent urination and urinary incontinence at times Allergies Allergy/AdvReac Type Severity Reaction Status Date / Time ceftriaxone Allergy Severe SHORTNESS Verified 10/30/19 13:17 OF BREATH lidocaine Allergy Severe SHORTNESS Verified 10/30/19 13:17 OF BREATH, diaphoretic, hives procaine Allergy Severe SHORTNESS Verified 10/30/19 13:17 OF BREATH, diaphoretic, hives amoxicillin Allergy Intermediate HIVES/FACIAL Verified 10/30/19 13:17 SWELLING clavulanic acid Allergy Intermediate HIVES/FACIAL Verified 10/30/19 13:17 SWELLING lisinopril Allergy Intermediate HIVES Verified 10/30/19 13:17 acetaminophen AdvReac Mild NAUSEA Verified 10/30/19 13:17 albuterol AdvReac Mild proair Verified 10/30/19 13:17 "trouble taking breaths" Fish Containing Products AdvReac Verified 11/01/19 16:29 Home Medications Home Medications Medication Instructions Recorded Confirmed Type aspirin 81 mg tablet,delayed 81 mg PO QAM 09/17/18 10/31/19 History release nitroglycerin [Nitrostat] 0.4 mg SUBLINGUAL UD PRN 04/24/19 10/31/19 History Breo Ellipta 1 inh INHALATION QAM 09/21/19 10/31/19 History budesonide 0.25 mg INHALATION Q12 PRN 09/21/19 10/31/19 History cholecalciferol (vitamin D3) 50 mcg PO BID 10/04/19 10/31/19 History [Vitamin D3] esomeprazole magnesium 20 mg PO BID 10/04/19 10/31/19 History isosorbide mononitrate 30 mg PO QAM 10/04/19 10/31/19 History Entresto 1 tab PO BID #60 tab 10/07/19 10/31/19 Rx metoprolol succinate 100 mg PO BID #60 tab 10/07/19 10/31/19 Rx potassium chloride [Klor-Con M20] 20 meq PO BID #0 tab 10/07/19 10/31/19 Rx torsemide 40 mg PO TID #180 tab 10/07/19 10/31/19 Rx diclofenac sodium [Voltaren] 4 g EXT QID 30 Days g 10/16/19 10/31/19 Rx dulaglutide [Trulicity] 1.5 mg SUBCUT WK 10/31/19 10/31/19 History gabapentin [Neurontin] 300 mg PO DAILY 10/31/19 10/31/19 History spironolactone [Aldactone] See Rx Instructions .ROUTE .COMPLEX 10/31/19 10/31/19 History Patient History Medical History Chronic respiratory failure 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 Underwent procedure without any complications monitored over night and discharged home. Obstructive sleep apnea SOB (shortness of breath) Umbilical hernia Vitamin D insufficiency Previously deficient, taking Vit D supplementation Surgical History History of carpal tunnel surgery History of cholecystectomy S/P tonsillectomy Family History Father , age 57 of an MA. Heart disease Myocardial infarction Mother , age 67 of a ruptured neck vessel Sudden Other Depression Lung disease No pertinent family history Denies family history of Ovarian cancer Prostate cancer Breast cancer Colorectal cancer Social History Smoking Status: Former smoker Age Started Using Tobacco: 14; Age Quit Using Tobacco: 18; Cigarettes Per Day: 40-50; Second Hand Exposure: No; Hx Alcohol Use: No Hx Substance Use: No Preferred Language: American Communication Ability: Unable Visual Impairment: No Limitations Hearing Ability: Normal Zinc Plater Required: No Beliefs That Will Affect Care: None marital status: Current Living Situation: Spouse current occupational status: unemployed How many Children do You have: 0 Feels Safe at Home: Yes Safety Concerns: Feels Safe At This Time Childhood Exposure to Second-Hand Smoke: Yes Dental Care, Regularly: Yes Physical Activity Frequency: Does not Exercise Assistive Devices: Oxygen - Continuous Review of Systems Review of Systems: All systems reviewed & are unremarkable except as noted in HPI & below Physical Exam Constitutional: + morbidly obese; no acute distress Eyes: PERRL, conjunctivae normal, anicteric sclerae ENMT: external ear and nose normal, oropharynx normal Neck: trachea midline, no thyromegaly Respiratory: normal respiratory effort, lungs clear to auscultation Cardiovascular: Rate/Rhythm: regular rate and regular rhythm Heart Sounds: normal S1 and normal S2; no gallop and no murmur Palpation: normal PMI Vessels: normal carotid upstroke and radial pulses present; no JVD and no carotid bruit Extremities: no edema Gastrointestinal (Abdomen): normal bowel sounds, soft, nontender, no hepatosplenomegaly Musculoskeletal: no cyanosis or clubbing, extremities motor strength 5/5 Skin: no rashes, warm and dry Neurologic: PERRL, EOMI, accommodation nl, no face palsy, no dysarthria Psychiatric: A+Ox3, euthymic affect Results & Data ([facility]) Vital Signs (Past 12 Hours) Vital Signs Temp Pulse Pulse Resp BP BP Pulse Ox 11/03/19 14:14 37.0 C 90 18 133/95 93 11/03/19 13:01 79 24 107/85 93 11/03/19 12:02 87 26 H 155/104 H 93 11/03/19 12:00 92 H 20 94 11/03/19 11:02 78 27 H 145/80 H 94 11/03/19 10:01 78 24 123/76 92 11/03/19 09:01 79 27 H 121/75 88 L 11/03/19 08:00 37 C 79 24 96 11/03/19 07:57 69 11/03/19 07:01 79 20 121/66 97 11/03/19 07:00 67 20 98 11/03/19 06:01 69 18 125/77 98 11/03/19 06:00 72 18 98 11/03/19 05:01 69 24 115/91 98 11/03/19 04:02 69 20 122/92 97 11/03/19 04:00 37.3 C 11/03/19 03:02 68 22 130/71 97 (1) Acute respiratory failure Respiratory failure complication: hypoxia and hypercapnia Qualified Code(s): J96.01 - Acute respiratory failure with hypoxia; J96.02 - Acute respiratory failure with hypercapnia
[2019-11-03] MEDS: POLYETHYLENE (MIRALAX) 17 GM PACK PO SCH (15:42)
[2019-11-03] MEDS: NITROGLYCERIN 2% OINTMENT 30GM TUBE EXT SCH ×3 (15:42→23:35)
[2019-11-03] MEDS ORDERED: KETOROLAC 30 MG/ML VIAL IV ONE (18:27)
[2019-11-03] MEDS ORDERED: OXYCODONE HCL IR 5 MG TAB (IMMEDIATE RELEASE) PO PRN (18:27)
[2019-11-03] MEDS: SACUBITRIL-VALSARTAN 97-103 MG TAB PO SCH (20:14)
[2019-11-03] MEDS: METOPROLOL SUCC 50MG EXT REL TAB PO SCH (20:15)
[2019-11-04] MEDS: FUROSEMIDE 40 MG in SYRINGE 0 ML IV SCH ×2 (05:31→16:56)
[2019-11-04] MEDS: HEPARIN SOD 5,000 UNIT/0.5 ML VIAL SQ SCH ×3 (05:31→21:23)
[2019-11-04] MEDS: NITROGLYCERIN 2% OINTMENT 30GM TUBE EXT SCH (05:31)
[2019-11-04 06:32] LABS: Calcium 8.5 mg/dl (8.5-10.1); Creatinine Clr Calc Pharmacy 117.5 ml/min; Est GFR (African American) 85.9; Est GFR (Non-African American) 74.1; Magnesium 2.3 mg/dl (1.8-2.4); Potassium 3.4 mmol/L (3.5-5.1)
[2019-11-04] MEDS: SACUBITRIL-VALSARTAN 97-103 MG TAB PO SCH ×2 (08:30→19:55)
[2019-11-04] MEDS: SPIRONOLACTONE 25 MG TAB PO SCH (08:30)
[2019-11-04] MEDS: GABAPENTIN 300 MG CAP PO SCH (08:31)
[2019-11-04] MEDS: DICLOFENAC SOD 1% GEL 100 GM TUBE EXT SCH ×4 (08:32→19:55)
[2019-11-04] MEDS: METOPROLOL SUCC 50MG EXT REL TAB PO SCH ×2 (08:32→19:55)
[2019-11-04] MEDS: POLYETHYLENE (MIRALAX) 17 GM PACK PO SCH (08:33)
[2019-11-04] MEDS: POTASSIUM CHLORIDE 20 MEQ TABCR PO SCH ×2 (08:34→19:54)
[2019-11-04] MEDS: INSULIN ASPART 100 UNITS/ML 3 ML PEN SC SCH ×4 (08:36→19:56)
[2019-11-04] MEDS: INSULIN HUMAN NPH SC SCH ×2 (08:45→16:59)
[2019-11-04] MEDS: ASPIRIN 81 MG CHEW PO SCH (08:47)
[2019-11-04] MEDS: ERTAPENEM SODIUM 1,000 MG in SODIUM CHLORIDE 0.9% 50 ML IV SCH (10:27)
--- NOTE | 2019-11-04 10:48 | Cardiology Progress Note ---
Date of Service November 04, 2019 Assessment & Plan (1) Acute on chronic heart failure with reduced ejection fraction and diastolic dysfunction: Patient dated with pulmonary edema and hypertensive urgency likely as in past due to a lapse in medical therapies. Patient has responded to initial treatment and currently stable hemodynamically Will increase Toprol back to prehospital dosing at 100 mg twice per day. Continue IV diuretics today with transition to oral regimen in a.m. Topical nitrates transitioned to oral CHF instructions discussed patient will need to obtain scale for daily weights at home. Will need weights as part of ongoing management both at home and during office visits We will consider adding urinary meds this admission that may help with hypertension as well as urinary complaints (2) Acute respiratory failure: (3) NICM (nonischemic cardiomyopathy): (4) AICD (automatic cardioverter/defibrillator) present: Normal function without arrhythmia this admission (5) Hypertensive emergency: Admission and Anticipated Discharge Date Admission Date: October 31, 2019 Subjective Patient was seen and examined, chart, medications, telemetry reviewed. Feels improved continues to have brisk diuresis. No chest pains no tachypalpitations no dizziness. Discussed CHF instructions with patient he notes he been relatively compliant at home per his description though no longer has a functioning scale Review of Systems Review of Systems: All systems reviewed & are unremarkable except as noted in HPI & below Physical Exam Constitutional: + morbidly obese; no acute distress Eyes: PERRL, conjunctivae normal, anicteric sclerae ENMT: external ear and nose normal, oropharynx normal Neck: trachea midline, no thyromegaly Respiratory: Auscultation: + diminished lung sounds; no rales and no wheezes Cardiovascular: Rate/Rhythm: regular rate and regular rhythm Heart Sounds: normal S1 and normal S2; no gallop and no murmur Palpation: normal PMI Vessels: normal carotid upstroke and radial pulses present; no JVD and no carotid bruit Extremities: no edema Gastrointestinal (Abdomen): normal bowel sounds, soft, nontender, no hepatosplenomegaly Musculoskeletal: no cyanosis or clubbing, extremities motor strength 5/5 Skin: no rashes, warm and dry Neurologic: PERRL, EOMI, accommodation nl, no face palsy, no dysarthria Psychiatric: A+Ox3, euthymic affect Results & Data ([facility]) Vital Signs (Past 12 Hours) Vital Signs Temp Pulse Pulse Resp BP Pulse Ox 11/04/19 08:00 71 11/04/19 07:57 36.5 C 87 18 105/63 96 11/04/19 04:00 36.7 C 74 20 122/82 97 11/04/19 03:35 62 21 94 11/04/19 00:00 85 11/03/19 23:27 36.7 C 82 20 129/73 97 11/03/19 23:24 82 26 H 99 (1) Acute respiratory failure Respiratory failure complication: hypoxia and hypercapnia Qualified Code(s): J96.01 - Acute respiratory failure with hypoxia; J96.02 - Acute respiratory failure with hypercapnia
[2019-11-04] MEDS ORDERED: METOPROLOL SUCC 50MG EXT REL TAB PO ONE (11:00)
[2019-11-04] MEDS: ISOSORBIDE MONO EXTENDED REL 30 MG TABCR PO SCH (12:16)
[2019-11-04] MEDS: PANTOprazole 40 MG TAB PO SCH (12:16)
--- NOTE | 2019-11-04 15:52 | XRay Report ---
PA CHEST WITH RIGHT-SIDED RIB SERIES CLINICAL HISTORY: Fall. Right-sided chest wall pain. FINDINGS: A PA chest radiograph with 4 additional views from a right-sided rib series is compared to study dated 11/03/2019 and correlated with chest CT dated 10/26/2019. A single lead cardiac AICD is unc hanged in position. The heart is enlarged. Pulmonary vascular congestion has improved from yesterday. Atelectasis is seen at the lung bases. No airspace consolidation or pleural effusion is identified. No pneumothorax is seen. There is no radiographic evidence of acute/distracted right-sided rib fractu re on the rib series. The remainder of the bony thorax is grossly intact. Cholecystectomy clips are n oted in the right upper quadrant. IMPRESSION: 1. Cardiomegaly and AICD. Pulmonary vascular congestion has improved from yesterday. 2. No airspace consolidation or pleural effusion is identified. 3. There is no radiographic evidence of acute/distracted right-sided rib fracture on the rib series. ACT 112: Negative or not required by law. Electronically signed by: Abhilash Carpio M.D. 11/04/2019 3:51 PM
--- NOTE | 2019-11-04 20:43 | Hospitalist Progress Note ---
Date of Service November 04, 2019 Assessment & Plan (1) Acute on chronic heart failure with reduced ejection fraction and diastolic dysfunction: approaching euvolemia. stop IV lasix after tonight's dose. has diuresed well over 10 liters since admission resume torsemide tomorrow am. was taking 40mg TID. to help with compliance change to 60mg BID (later dose at ~1700). EF 25-30% on echo this admission. long-standing habit of noncompliance with diet, meds, etc. although he denies such. cont beta mansoor. cont entresto. cont aldactone. appreciate cardiology assistance. repeat labs in am. (2) Acute respiratory failure with hypoxia: Improving/nearly resolved. 2nd to acute/chronic CHF. Intubated in the ER at presentation. Now extubated 11/02/19. Cont NC O2 - wean as tolerated. BIPAP with sleep. Cont diuresis. Some concern for superimposed infectious process of lungs early this stay. repeat cxr today - if not pneumonia then stop ertapenem. (3) RUQ abdominal pain: Likely musculoskeletal. Reproducible w/ palpation, worsened with movement. rib series on right neg for fracture today. cxr today also wnl. does not have a gall bladder. (4) Constipation: cont miralax (if he will take it) (5) Obstructive sleep apnea: h/o such, but noncompliant with prior device by history. cont BIPAP while hospitalized w/ sleep. (6) Hypertension: Controlled with current medication regimen. (7) Diabetes mellitus type 2 with complications: pharmacy managing; appreciate their assistance. cont basal-bolus regimen. controlled. (8) COPD (chronic obstructive pulmonary disease): without exacerbation. defer on steroids. (9) AICD (automatic cardioverter/defibrillator) present: noted no recent discharges (10) Morbid obesity with BMI of 50.0-59.9, adult: BMI 50.7 weight is back to dry weight (11) Intellectual disability: at least mild (12) DVT prophylaxis: heparin 7500 units TID spoke with social work about his aftercare and how to prevent these recurrent admissions difficult situation needs a functional scale at home urinary incontinence - check u/a Admission and Anticipated Discharge Date Admission Date: October 31, 2019 Subjective patient reports cough and dyspnea are both improved. like previous visits he mentions hemoptysis but this has not been witnessed while here. he also c/o dysphagia - states he has had EGDs in the past for such with ?dilatation. records reviewed - [address] Rosenthal - completely normal; no dilatation performed. 03/[address] Brock Matt ([facility]) - portal gastropathy and gastritis seen. he continues to have mild right chest wall pain/RUQ pain, worse w/ movement. states he had a fall at home and hit his chest. lastly, he mentions urinary incontinence but improved from when he was at home. no dysuria. Review of Systems Constitutional: + anorexia (states he gets filled up easily); no fever and no chills Respiratory: + hemoptysis; no dyspnea, no dyspnea on exertion and no wheezing Cardiovascular: as per Subjective / HPI; no orthopnea, no paroxysmal nocturnal dyspnea and no edema Gastrointestinal: no abdominal pain, no nausea and no vomiting Physical Exam Constitutional: + morbidly obese; no acute distress and no altered mental status ENMT: external ear and nose normal, oropharynx normal Respiratory: normal respiratory effort, lungs clear to auscultation Auscultation: no crackles and no wheezes Cardiovascular: Rate/Rhythm: regular rate and regular rhythm Heart Sounds: normal S1 and normal S2; no murmur Vessels: posterior tibial pulses present and dorsalis pedis pulses present; no JVD Extremities: no edema Gastrointestinal (Abdomen): Inspection/Auscultation: abdomen not distended Percussion/Palpation: + abdomen tender (RUQ, with extension to right lower chest wall ); no hepatosplenomegaly Skin: no signs of trauma to right chest wall Psychiatric: A+Ox3, euthymic affect Results & Data Results & Data ([facility]) Vital Signs (Past 12 Hours) Vital Signs Temp Pulse Pulse Resp BP Pulse Ox Pulse Ox 11/04/19 19:04 36.7 C 86 18 119/75 100 11/04/19 16:17 36.5 C 92 H 18 110/79 96 11/04/19 16:14 83 11/04/19 15:39 94 11/04/19 12:00 36.8 C 74 18 115/70 98 11/04/19 11:23 96 Laboratory Results Laboratory Results - last 24 hr 11/04/19 11/04/19 11/04/19 05:26 07:41 11:16 Sodium 141 Potassium 3.4 L Chloride 106 Carbon Dioxide 29 Anion Gap 6.0 BUN 25 H Creatinine 1.20 Est Cr Clr Drug Dosing 117.5 Est GFR ( Amer) 85.9 Est GFR (Non-Af Amer) 74.1 BUN/Creatinine Ratio 21.0 H Glucose 123 H POC Glucose 152 H 126 H Calcium 8.5 Magnesium 2.3 11/04/19 11/04/19 16:22 19:49 Sodium Potassium Chloride Carbon Dioxide Anion Gap BUN Creatinine Est Cr Clr Drug Dosing Est GFR ( Amer) Est GFR (Non-Af Amer) BUN/Creatinine Ratio Glucose POC Glucose 117 H 147 H Calcium Magnesium PG Care Time/CCT Total # of Minutes Spent Total Time Spent with Patient: Total time spent is greater than 50% in coordination of care (as documented) at patient's floor/unit and/or counseling patient: Coding Level of Care Code 31225 Subseq Hosp Care Lvl 2 Diagnoses Acute on chronic heart failure with reduced ejection fraction and diastolic dysfunction I50.43 Acute respiratory failure with hypoxia J96.01 RUQ abdominal pain R10.11 Constipation K59.00 Constipation type: unspecified constipation type Obstructive sleep apnea G47.33 Hypertension I10 Hypertension type: essential hypertension Diabetes mellitus type 2 with complications E11.8 COPD (chronic obstructive pulmonary disease) J44.9 COPD type: unspecified COPD AICD (automatic cardioverter/defibrillator) present Z95.810 Morbid obesity with BMI of 50.0-59.9, adult E66.01; Z68.43 Intellectual disability F79 DVT prophylaxis Z29.9 (1) Constipation Constipation type: unspecified constipation type Qualified Code(s): K59.00 - Constipation, unspecified (2) Hypertension Hypertension type: essential hypertension Qualified Code(s): I10 - Essential (primary) hypertension (3) COPD (chronic obstructive pulmonary disease) COPD type: unspecified COPD Qualified Code(s): J44.9 - Chronic obstructive pulmonary disease, unspecified
[2019-11-05 01:33] LABS: Appearance Urine Clear (Clear); Bilirubin Urine Negative (Negative); Blood Urine Negative (Negative); Color Urine Yellow; Glucose Urine UA Negative (Negative); Ketones Urine Negative (Negative); Leukocyte Esterase Urine Negative (Negative); Nitrite Urine Negative (Negative); Protein Urine Negative (Negative); Specific Gravity Urine 1.019 (1.000-1.030); Urobilinogen Urine Negative (Negative)
[2019-11-05] MEDS: HEPARIN SOD 5,000 UNIT/0.5 ML VIAL SQ SCH ×2 (05:47→13:06)
[2019-11-05 06:57] LABS: BUN Creatinine Ratio 20.7 (10-20); Creatinine Clr Calc Pharmacy 125.2 ml/min; Est GFR (African American) 94.4; Est GFR (Non-African American) 81.5; Magnesium 2.2 mg/dl (1.8-2.4)
[2019-11-05] MEDS: SPIRONOLACTONE 25 MG TAB PO SCH (07:46)
[2019-11-05] MEDS: ASPIRIN 81 MG CHEW PO SCH (07:51)
[2019-11-05] MEDS: SACUBITRIL-VALSARTAN 97-103 MG TAB PO SCH (07:53)
[2019-11-05] MEDS: ISOSORBIDE MONO EXTENDED REL 30 MG TABCR PO SCH (07:53)
[2019-11-05] MEDS: POLYETHYLENE (MIRALAX) 17 GM PACK PO SCH (07:54)
[2019-11-05] MEDS: POTASSIUM CHLORIDE 20 MEQ TABCR PO SCH (07:54)
[2019-11-05] MEDS: GABAPENTIN 300 MG CAP PO SCH (07:54)
[2019-11-05] MEDS: PANTOprazole 40 MG TAB PO SCH (07:55)
[2019-11-05] MEDS: DICLOFENAC SOD 1% GEL 100 GM TUBE EXT SCH ×2 (07:56→12:56)
[2019-11-05] MEDS: METOPROLOL SUCC 50MG EXT REL TAB PO SCH (07:59)
[2019-11-05] MEDS: INSULIN HUMAN NPH SC SCH (08:02)
[2019-11-05] MEDS: INSULIN ASPART 100 UNITS/ML 3 ML PEN SC SCH ×2 (08:03→12:08)
[2019-11-05] MEDS ORDERED: TORSEMIDE 10 MG TAB PO SCH (09:00)
--- NOTE | 2019-11-05 11:34 | Pharmacy Report ---
Pharmacy Glycemic Short Note 2 - Date of Service November 05, 2019 - Glycemic Short BSG Results (Last 24 hours): 11/04/19 11/04/19 11/05/19 16:22 19:49 05:32 Glucose 115 H POC Glucose 117 H 147 H 11/05/19 07:22 Glucose POC Glucose 117 H Outpatient Anti-diabetic Regimen: * Significant outpatient non-adherence noted. Precise glycemic regimen the patient takes/receives is therefore in question. Currently, patient is listed as taking Trulicity and no outpatient insulin, which may or may not be accurate. Patient was noted to be on Humalog 50/50 previously but this is not listed this admission. * A1c = 7.9% % 09/12/19 Risk Factors for Insulin Resistance: * Diet: T2DM ASSESSMENT: 11/05/19 * BSG's have ranged 113-152 mg/dL over the last 48 hours with no changes to stressors other than discontinuation of ertapenem and no changes to insulin regimen * Continue current regimen 11/03/19 * 43 yo M with T2DM well known to our glycemic service admitted 10/30 with acute respiratory failure and flash pulmonary edema. Was intubated in the ED and admitted to the ICU. Patient was extubated on 11/01. Patient has received no insulin since admission and BSG's have ranged 88-147 mg/dL over the last 48 hours. * Significant chronic outpatient non-adherence noted with frequent hospital admissions related to said non-adherence. Per H&P documentation, patient may benefit from placement at a nursing facility on discharge. * BSG's have been well controlled thus far without insulin. Despite this, patient now ordered a diet therefore anticipate need to initiate insulin at this time * Previous admission data reviewed - will utilize a regimen that worked well on previous admissions which consists of low-dose NPH (a total of 0.1 units/kg/day divided BIDM) with relatively loose Novolog parameters as compared to weight-based estimate PLAN FOR INPATIENT GLYCEMIC CONTROL: * Basal insulin * Insulin NPH 8 units SQ BIDM * Bolus insulin * NovoLog per scale ACHS or Q6hrs while NPO * Goal Range: Low 110 mg/dL - High 140 mg/dL * Correction Factor: 25 mg/dL/unit * Nutritional / Prandial insulin per carb ratio of 1 unit per 9 grams CHO consumed
--- NOTE | 2019-11-05 13:52 | Cardiology Progress Note ---
Date of Service November 05, 2019 Assessment & Plan (1) Acute on chronic heart failure with reduced ejection fraction and diastolic dysfunction: Patient dated with pulmonary edema and hypertensive urgency likely as in past due to a lapse in medical therapies. Patient has responded to initial treatment and currently stable hemodynamically Will increase Toprol back to prehospital dosing at 100 mg twice per day. Continue IV diuretics today with transition to oral regimen in a.m. Topical nitrates transitioned to oral CHF instructions discussed patient will need to obtain scale for daily weights at home. Review of records reveals patient previously on metolazone 1 to 2 days/week 5 mg p.o.. This was discontinued during hospitalization in September Given recurrence of pulmonary edema and congestive heart failure we will add metolazone back at 5 mg 1 day per week. We will arrange appointment with cardiology next 1 to 2 weeks however patient has been no-show for past 3 visits Patient appears more compliant with primary care but will need weights each visit Discussed need for ongoing congestive heart failure instructions including daily weights at home as well as weights at all doctor's office visits (2) Acute respiratory failure: (3) NICM (nonischemic cardiomyopathy): (4) AICD (automatic cardioverter/defibrillator) present: Normal function without arrhythmia this admission (5) Hypertensive emergency: Admission and Anticipated Discharge Date Admission Date: October 31, 2019 Subjective Patient was seen and examined, chart, medications, telemetry reviewed. No acute complaints at this time wearing oxygen in room. Volume status significantly improved since admission Heart rate and blood pressure well controlled Physical Exam Constitutional: + morbidly obese; no acute distress Eyes: PERRL, conjunctivae normal, anicteric sclerae ENMT: external ear and nose normal, oropharynx normal Neck: trachea midline, no thyromegaly Respiratory: normal respiratory effort, lungs clear to auscultation Auscultation: + diminished lung sounds; no rales and no wheezes Cardiovascular: Rate/Rhythm: regular rate and regular rhythm Heart Sounds: normal S1 and normal S2; no gallop and no murmur Palpation: normal PMI Vessels: normal carotid upstroke and radial pulses present; no JVD and no carotid bruit Extremities: no edema Gastrointestinal (Abdomen): normal bowel sounds, soft, nontender, no hepatosplenomegaly Musculoskeletal: no cyanosis or clubbing, extremities motor strength 5/5 Skin: no rashes, warm and dry Neurologic: PERRL, EOMI, accommodation nl, no face palsy, no dysarthria Psychiatric: A+Ox3, euthymic affect Results & Data ([facility]) Vital Signs (Past 12 Hours) Vital Signs Temp Pulse Pulse Pulse Resp BP Pulse Ox 11/05/19 11:53 36.7 C 80 18 110/56 L 99 11/05/19 11:41 92 11/05/19 08:15 74 11/05/19 08:00 36.6 C 70 20 99/60 L 98 11/05/19 07:55 80 102/70 11/05/19 02:54 36.6 C 73 16 97/65 L 92 Laboratory Results Laboratory Results - last 24 hr 11/04/19 11/04/19 11/05/19 16:22 19:49 01:23 Sodium Potassium Chloride Carbon Dioxide Anion Gap BUN Creatinine Est Cr Clr Drug Dosing Est GFR ( Amer) Est GFR (Non-Af Amer) BUN/Creatinine Ratio Glucose POC Glucose 117 H 147 H Calcium Magnesium Urine Color Yellow Urine Appearance Clear Urine pH 5.0 Ur Specific [place] 1.019 Urine Protein Negative Urine Glucose (UA) Negative Urine Ketones Negative Urine Blood Negative Urine Nitrite Negative Urine Bilirubin Negative Urine Urobilinogen Negative Ur Leukocyte Esterase Negative 11/05/19 11/05/19 11/05/19 05:32 07:22 11:31 Sodium 140 Potassium 4.0 D Chloride 105 Carbon Dioxide 29 Anion Gap 6.0 BUN 23 H Creatinine 1.11 Est Cr Clr Drug Dosing 125.2 Est GFR ( Amer) 94.4 Est GFR (Non-Af Amer) 81.5 BUN/Creatinine Ratio 20.7 H Glucose 115 H POC Glucose 117 H 120 H Calcium 9.0 Magnesium 2.2 Urine Color Urine Appearance Urine pH Ur Specific [place] Urine Protein Urine Glucose (UA) Urine Ketones Urine Blood Urine Nitrite Urine Bilirubin Urine Urobilinogen Ur Leukocyte Esterase (1) Acute respiratory failure Respiratory failure complication: hypoxia and hypercapnia Qualified Code(s): J96.01 - Acute respiratory failure with hypoxia; J96.02 - Acute respiratory failure with hypercapnia
--- NOTE | 2019-11-05 14:21 | Discharge Summary ---
Date of Service date of admission - October 31, 2019 date of discharge - November 05, 2019 Admission HPI Per Admitting Provider The patient is a 43-year-old male with past medical history including chronic systolic CHF 2nd nonischemic cardiomyopathy, tussive syncope, ICD status, type 2 diabetes mellitus, MARIELENA, recurrent admissions for hypertensive urgency/emergency, morbid obesity, COPD, frequent admissions for respiratory failure with hypoxia and hypercapnia, intellectual disability, and known medical noncompliance. He presented to the ED with acute hypoxic respiratory failure and distress as noted by accessory muscle use, shortness of breath, and difficulty completing his sentences. It was discussed with him at this time he should be intubated for treatment of his respiratory failure and he agreed. In the emergency department, patient was given Lasix 40 mg IV, started on nitroglycerin drip, given Cardizem 10 mg IV, placed on BiPAP, and as noted above, later required intubation which was performed by the ED staff. Patient was then transferred to the ICU for continued medical management. Principal Diagnosis acute hypoxic respiratory failure 2nd to acute/chronic systolic CHF Discharge Exam Constitutional + morbidly obese; no acute distress and no altered mental status ENMT external ear and nose normal, oropharynx normal Respiratory normal respiratory effort, lungs clear to auscultation Auscultation: no crackles and no wheezes Cardiovascular Rate/Rhythm: regular rate and regular rhythm Heart Sounds: normal S1 and normal S2; no murmur Vessels: posterior tibial pulses present and dorsalis pedis pulses present; no JVD Extremities: no edema Gastrointestinal (Abdomen) Inspection/Auscultation: abdomen not distended Percussion/Palpation: + abdomen tender (RUQ, with extension to right lower chest wall; worsened by patient moving ); no hepatosplenomegaly Psychiatric A+Ox3, euthymic affect Discharge Data Allergies Allergy/AdvReac Type Severity Reaction Status Date / Time ceftriaxone Allergy Severe SHORTNESS Verified 10/30/19 13:17 OF BREATH lidocaine Allergy Severe SHORTNESS Verified 10/30/19 13:17 OF BREATH, diaphoretic, hives procaine Allergy Severe SHORTNESS Verified 10/30/19 13:17 OF BREATH, diaphoretic, hives amoxicillin Allergy Intermediate HIVES/FACIAL Verified 10/30/19 13:17 SWELLING clavulanic acid Allergy Intermediate HIVES/FACIAL Verified 10/30/19 13:17 SWELLING lisinopril Allergy Intermediate HIVES Verified 10/30/19 13:17 acetaminophen AdvReac Mild NAUSEA Verified 10/30/19 13:17 albuterol AdvReac Mild proair Verified 10/30/19 13:17 "trouble taking breaths" Fish Containing Products AdvReac Verified 11/01/19 16:29 Consultations Children'S Counselor [facility] PT, OT Procedures Performed 1. intubation/mechanical ventilation 2. right radial arterial line Ordered Studies 1. 11/02/19 09:42 US venous doppler LE LT Urgent - no evidence of DVT. 2. right-sided rib series -- no evidence of rib fracture. 3. echocardiogram - * EF 25-30% * grade 1 diastolic dysfunction * unable to adequately visualize LV wall motion due to poor views * intact valvular function Hospital Course (1) Acute on chronic heart failure with reduced ejection fraction and diastolic dysfunction: As on previous hospital stays this was the cause of his presentation and acute hypoxic respiratory failure. Noncompliance with diet and medications is the likely cause of his repeated episodes of decompensation. Patient was diuresed and lost 10 L of fluid while here. Discharge weight was 152 kg. Patient was seen by [facility] who provided caraballo cardiac recommendations. Repeat echo this admission was unchanged from prior studies (EF 25-30% - nonischemic cardiomyopathy). Patient was continued on his metoprolol xl 100mg BID, entresto, and aldactone. Patient had been taking torsemide 40mg TID as outpatient. To help with compliance I changed this to 60mg BID (later dose at ~1700). Patient admitted he was not taking daily weights at home. The [facility] office was contacted, and a request was placed for a bluetooth-capable scale he could use at home. He was counseled multiple times on the importance of compliance with diet, fluid intake, daily weights, and medications. He has MARIELENA and he was also counseled on the importance of compliance with BiPAP. (2) Acute respiratory failure with hypoxia: 2nd to acute/chronic CHF. Intubated in the ER at presentation. Extubated 11/02/19 to nasal cannula. This was weaned, and at discharge he will follow his usual regimen of NC O2 5 liters with activity and also blended into his BiPAP when he sleeps. O2 sats are normal at rest in room air. There was some early concern for superimposed infectious process of lungs while in the ICU. However, subsequent chest films failed to show pneumonia thus antibiotics were discontinued. (3) RUQ abdominal pain: Likely musculoskeletal. Reproducible w/ palpation, worsened with movement. Patient states he had had a fall just prior to admission. Thus, his pain was likely from the fall. Rib series on right negative for fracture. Pain improved with conservative measures and time. Of note - pain was not worsened by eating and patient also does not have a gall bladder. (4) Constipation: cont miralax (if he will take it) (5) Obstructive sleep apnea: h/o such, but noncompliant with prior device by history. cont BIPAP with O2 blended. (6) Hypertension: Controlled with current medication regimen. (7) Diabetes mellitus type 2 with complications: Pharmacy provided glycemic assistance with basal-bolus insulin regimen. controlled while here. At discharge he will resume his trulicity. (8) COPD (chronic obstructive pulmonary disease): without exacerbation during this stay. (9) AICD (automatic cardioverter/defibrillator) present: no recent discharges (10) Morbid obesity with BMI of 50.0-59.9, adult: BMI ~51 discharge dry weight about 152 kg (11) Intellectual disability: at least mild significantly impacts his ability to control his cardiac disease and other medical issues has an intensive outpatient case manager in the community to assist him Total Time Total Time Spent Total Time Spent (In Minutes): 40 Total Time Includes: Examination of the Patient, Discharge Planning, Medication Reconciliation and Communication With Other Providers Discharge Plan Discharge Items Patient Disposition: Home - Home Health Services Reason For Visit: congestive heart failure Discharge Diagnosis: Severe fluid build-up in lungs from congestive heart failure. This led to difficulty breathing and need for the respirator in the ICU. Fluid build-up now resolved. Activity: Resume your previous activity Non-emergency contact: Primary Care Provider and Glass Cutter Call non-emergency contact if: you have any medication questions, your symptoms worsen and you have a fever Follow-up/Referrals: Poornima Rocha MD [Primary Care Provider] - 11/12/19 2:40 pm (Please follow up with Dr. Rocha at [facility] on Sunday11/12/2019 at 2:40 pm. Please arrive to the office 15 minutes early for your appointment. If you are unable to keep this appointment, please call the office to reschedule at [phone].) Shon Hernandez, DO [Glass Cutter] - 11/07/19 3:30 pm (Please follow up with Dr. Hernandez at [facility] on Sunday11/07/2019 at 3:30 pm. Please arrive to the office 15 minutes early for your appointment. If you are unable to keep this appointment, please call the office to reschedule at [phone].) Diet: Carb Consistent or DM2 and Low Sodium (2gm) Fluids: 2000ml (8 cups) Addtl Attending Provider Instructions: You were treated for fluid build-up in the lungs from your congestive heart failure. The fluid build-up was so bad that you could not breath and you were placed on the respirator in the intensive care unit. The following actions will lead to ongoing difficulties with fluid retention -- * eating salty foods; this includes but is not limited to potato chips, deli meats (salami, bologna, etc), fried foods, fast foods ([employer]ña[employer], etc), canned soup, TV dinners, etc * drinking TOO MUCH FLUID; limit your total liquid intake to about 2 liters per day (2000ml) * not taking your fluid pills and other heart medications * not using your BIPAP at night-time when you sleep * skipping your oxygen when you leave your home or walk/do activities * not weighing yourself every morning The ongoing hospital stays will continue unless you follow the above recommendations. It is also very important to see Dr Hernandez and the heart clinic at [facility] and follow all of their recommendations. Having congestive heart failure is very hard and it requires a lot of effort on your part to stay healthy and stay out of the hospital. We are all here to help you stay well. Recommendations -- 1. take your torsemide water pill TWICE A DAY -- first dose at 8am, and the 2nd dose at 5pm. Take 60mg for each dose. 2. take your spironolactone water pill TWICE A DAY -- first dose at 8am, and then again at 5pm. Your doses are as follows - * 50mg at 8am * 25mg at 5pm 3. use your oxygen 5 liters with activity/leaving your home. Be sure to feed the oxygen into your BIPAP machine at night when you sleep as well. Follow-up -- see separate section Return to [facility] if -- * you have fever over 100 degrees * you have worsening breathing * you have chest pain * you have any other concerns Addtl Powder Carrier Provider Instructions: Congestive Heart Failure Instructions: Call 911 and go to the Emergency Room if: * You have tightness or pain in your chest that does not go away with rest or Nitroglycerin * You are very short of breath even with rest Call your doctor if any of the following symptoms or problems start or get worse: * Shortness of breath or difficulty breathing * Wake up at night short of breath * Chest pain * Cough * Swelling of your hands, fee, or legs * More fatigued or tired with your normal activity * Palpitations - sudden fast heart beats WEIGHT * Weigh yourself every morning after using the bathroom. This is extremely important. Your weight on 11/05/19 is: 334 pounds. * Use the same scale. * Wear the same amount of clothing. * Write your weight down on your chart. * Call your heart doctors if you gain more than 3 pounds in 1-2 days. This is a sign of fluid retention from your congestive heart failure. If you call right away you increase your chances of staying out of the hospital and staying well. Do not delay - call right away. MEDICATIONS * Use this discharge instruction sheet for instructions. * Take your medications at the time your doctor ordered. * Do not skip a dose of your medicines. * If you miss a dose of medicine, take as soon as possible, but DO NOT DOUBLE A DOSE. * Read your medicine information when you get home. * Know all of the side effects of your medicine. * Call your doctor's office if you have any side effects. * Be sure all of your doctors know what medicine and herbs you take (including cold, flu, and herbal medicine). * Pain Medicine: If you do not get relief from your pain, please call your doctor for help. Take the following with you to your follow-up doctor appointments: * Weight Chart * Medication List * List of questions Do not drink excessive alcohol, beer or wine. Pending Studies at Discharge: No Stand-Alone Forms: My [facility], Smoking Cessation Medications and DC Order Prescriptions: New (DME) Oxygen Home Liters Per Minute See Rx Instructions .ROUTE .MEDSUPPLY Qty: 1 RF: 0 Continued aspirin [Aspirin Low Dose] 81 mg tablet,delayed release (DR/EC) 81 mg PO QAM RF: 0 nitroglycerin [Nitrostat] 0.4 mg tablet, sublingual 0.4 mg sublingual UD PRN (Reason: Chest Pain) RF: 0 budesonide 0.25 mg/2 mL suspension for nebulization 0.25 mg inhalation Q12 PRN (Reason: Shortness Of Breath Or Wheezing) RF: 0 Breo Ellipta 200-25 mcg/dose blister with device 1 inh INHALATION QAM RF: 0 diclofenac sodium [Voltaren] 1 % Gel 4 g EXT QID 30 Days RF: 0 gabapentin [Neurontin] 100 mg capsule 300 mg PO DAILY RF: 0 Trulicity 1.5 mg/0.5 mL pen injector 1.5 mg SUBCUT WK RF: 0 isosorbide mononitrate 30 mg tablet extended release 24 hr 30 mg PO QAM RF: 0 esomeprazole magnesium 20 mg Tablet,Delayed Release (Dr/Ec) 20 mg PO BID RF: 0 cholecalciferol (vitamin D3) [Vitamin D3] 50 mcg (2,000 unit) Tablet 50 mcg PO BID RF: 0 metoprolol succinate 100 mg tablet extended release 24 hr 100 mg PO BID Qty: 60 RF: 0 Entresto 97-103 mg Tablet 1 tab PO BID Qty: 60 RF: 0 potassium chloride [Klor-Con M20] 20 mEq tablet,ER particles/crystals 20 meq PO BID Qty: 0 RF: 0 Changed torsemide 20 mg tablet 60 mg PO BID Qty: 180 RF: 0 spironolactone [Aldactone] 25 mg tablet See Rx Instructions .ROUTE .COMPLEX Qty: 0 RF: 0 Discharge Orders: Discharge Order (Routine); Ordered 11/05/19 Ordered By: Migue Packer Admission Data Admit Date/Time: 10/31/19 20:51 Attending Provider: Migue Packer Admit Provider: Noé Jaquez Primary Care Provider: Poornima Rocha Other Providers: Noé Jaquez ; Velma Menendez ; Yuri Johns ; Vick Benoit ; Marcus Ca ; Shon Hernandez ; Ilir Bustamante ; Cleveland Otoole ; Shyanne Stern ; Danya Ta ; Konrad Langston ; [facility] Healthcare Other Interventions: Discharge Summary Assessment (RN) Last Done: 11/05/19 14:25 Coding Level of Care Code D/C Day Management >30 mins Diagnoses Acute on chronic heart failure with reduced ejection fraction and diastolic dysfunction I50.43 Acute respiratory failure with hypoxia J96.01 RUQ abdominal pain R10.11 Constipation K59.00 Constipation type: unspecified constipation type Obstructive sleep apnea G47.33 Hypertension I10 Hypertension type: essential hypertension Diabetes mellitus type 2 with complications E11.8 COPD (chronic obstructive pulmonary disease) J44.9 COPD type: unspecified COPD AICD (automatic cardioverter/defibrillator) present Z95.810 Morbid obesity with BMI of 50.0-59.9, adult E66.01; Z68.43 Intellectual disability F79
== END 2019-11-05 15:02 | disposition home health service (06) | DRG 291 ==
LOC: EDSEX → ED 19:02 → SUATTDRO 20:51 → 1E 20:51 → 2E 11-03 14:02
DX: E66.01 Morbid (severe) obesity due to excess calories; Z79.82 Long term (current) use of aspirin; K59.00 Constipation, unspecified; Z88.0 Allergy status to penicillin; I16.1 Hypertensive emergency; Z79.51 Long term (current) use of inhaled steroids; I50.43 Acute on chronic combined systolic (congestive) and diastolic (congestive) heart failure; Z91.19 Patient's noncompliance with other medical treatment and regimen; W19.XXXA Unspecified fall, initial encounter; Y92.009 Unspecified place in unspecified non-institutional (private) residence as the place of occurrence of the external cause; R10.11 Right upper quadrant pain; I42.8 Other cardiomyopathies; Z79.899 Other long term (current) drug therapy; Z88.8 Allergy status to other drugs, medicaments and biological substances; Z88.6 Allergy status to analgesic agent; Z88.4 Allergy status to anesthetic agent; F70 Mild intellectual disabilities; Z82.49 Family history of ischemic heart disease and other diseases of the circulatory system; J96.01 Acute respiratory failure with hypoxia; R25.2 Cramp and spasm; Z87.891 Personal history of nicotine dependence; G47.33 Obstructive sleep apnea (adult) (pediatric); Z95.810 Presence of automatic (implantable) cardiac defibrillator; Z68.43 Body mass index [BMI] 50.0-59.9, adult; J44.9 Chronic obstructive pulmonary disease, unspecified; Z88.1 Allergy status to other antibiotic agents; R32 Unspecified urinary incontinence; R07.89 Other chest pain; I11.0 Hypertensive heart disease with heart failure; E11.8 Type 2 diabetes mellitus with unspecified complications

== ENCOUNTER 2020-08-18 18:01 | Observation (INO) ==
[2020-08-18] MEDS ORDERED: FUROSEMIDE 40 MG/4 ML VIAL IV STA (18:09)
[2020-08-18] MEDS ORDERED: LEVALBUTEROL HCL 1.25 MG/3 ML NEB NEB STA (18:09)
[2020-08-18 18:39] LABS: Basophils # (auto) 0.01 K/uL (0-0.2); Basophils % (auto) 0.1 %; Eosinophils # (auto) 0.04 K/uL (0-0.5); Eosinophils % (auto) 0.4 %; Hemoglobin 14.3 g/dL (14.0-18.0); Immature Granulocytes # (auto) 0.03 K/uL (0.00-0.02); Immature Granulocytes % (auto) 0.3 %; Lymphocytes # (auto) 1.88 K/uL (1.2-3.4); Lymphocytes % (auto) 19.9 %; Mean Corpuscular Hemoglobin 28.6 pg (25-34); Mean Platelet Volume 10.2 fL (7.4-10.4); Monocytes # (auto) 0.58 K/uL (0.11-0.59); Monocytes % (auto) 6.2 %; Neutrophils # (auto) 6.89 K/uL (1.4-6.5); Neutrophils % (auto) 73.1 %; Platelet Count 200 K/uL (130-400); RDW Coefficient of Variation 14.6 % (11.5-14.5); RDW Standard Deviation 44.5 fL (36.4-46.3); White Blood Count 9.43 K/uL (4.8-10.8)
[2020-08-18 18:53] LABS: Partial Thromboplastin Time 25.5 Seconds (21.0-31.0)
[2020-08-18 19:01] LABS: Albumin Level 3.1 gm/dl (3.4-5.0); Calcium 8.6 mg/dl (8.5-10.1); Creatinine Clr Calc Pharmacy 147.8 ml/min; Est GFR (African American) 110.4 ml/min; Est GFR (Non-African American) 95.2 ml/min
[2020-08-18] MEDS ORDERED: NovoLIN-R INSULIN PER UNIT CHARGE IV STA (19:01)
--- NOTE | 2020-08-18 19:01 | Emergency Department Note ---
Impression & Plan CHF (congestive heart failure) ED Provider Note NAME: HARDIK LOVE AGE: 44 SEX: M : 1975 ARRIVES VIA: Ambulance INFORMANT: Patient, ED PROVIDER(S): Kan Pollock MD CHIEF COMPLAINT: Shortness of breath HPI: This is a 44-year-old male who presents emergency department with a history of congestive heart failure who reports that he has been increasingly short of breath over the past 2 days. The patient reports anytime he walks in his house he becomes short of breath. He reports rest makes this somewhat better. He has been taking inhalers without relief of the breathing. EMS reports that they gave the patient a breathing treatment in route. ROS: See above HPI for pertinent positives & negatives. A total of 10 systems reviewed and were otherwise negative. PAST MEDICAL HISTORY: See Below PAST SURGICAL HISTORY: See Below FAMILY HISTORY: See Below SOCIAL HISTORY: See Below HOME MEDICATIONS: See Below ALLERGIES: See Below VITALS: See Below PHYSICAL EXAMINATION: VITAL SIGNS - Vital signs and nursing notes were reviewed. GENERAL - 44-year-old male appearing stated age who is in no acute distress. Communicates well with provider and answers questions appropriately. SKIN - Without rashes. HEAD - NC/AT. EYES - PERRL with EOMI bilaterally. Sclera anicteric. Palpebral conjunctiva pink and moist with no injection noted. EARS - No deformities of external structures noted on gross examination bilaterally. NOSE - Midline and without cyanosis. No epistaxis or purulent drainage noted. Septum midline without deviation or septal hematoma noted. MOUTH/OROPHARYNX - Without perioral cyanosis. Buccal mucosa pink and moist and without leukoplakia. Tongue midline with equal elevation of palate bilaterally. No tonsillar hypertrophy, erythema, or exudates noted. NECK - Neck with FROM. Supple to palpation. No nuchal rigidity. LUNGS - Chest wall symmetric without accessory muscle use, intercostals retractions, or central cyanosis. Normal vesicular breath sounds CTA B/L. No wheezes, rales, or rhonchi appreciated. CARDIAC - RRR with S1/S2. No murmur, rubs, or gallops appreciated. ABDOMEN - Abdominal contour without pulsations or visible masses. BS normoactive all four quadrants. No tenderness, palpable masses, hepatosplenomegaly, or ascites noted. EXTREMITIES - No clubbing or peripheral cyanosis. No pretibial edema present. +3/5 radial, posterior tibial, and dorsalis pedis pulses palpated throughout. +5/5 strength noted in UE/LE bilaterally. NEUROLOGIC - Cranial nerves II through XII grossly intact. Sensory intact to light touch throughout. Patellar reflexes +2/4. PSYCH - A&Ox3 and cooperates fully with examiner. Pt is very pleasant and interacts well with examiner. MEDICAL DECISION MAKING: Patient was seen and evaluated as above in room C9. Review was performed of nursing notes and vital signs. I did review pertinent previous visits and patient history. After obtaining a thorough history and physical examination the above work up was performed. This a 44-year-old male who presents emergency department complaining of s hortness of breath. The patient was given Lasix here in the emergency department as well as his torsemide. The patient is insisting that he needs to be admitted to the hospital because he cannot breathe. He is on 6 L of oxygen here. I did discuss the case the hospital service who did agree to meet the patient. An order was placed for continuous cardiac monitoring. The monitor shows a rate of 88 with Normal Sinus rhythm. The patient was evaluated during a period of high volume and high acuity during the global COVID-19 pandemic, and that diagnosis was suspected/considered upon their initial presentation. Their evaluation, treatment and testing was consistent with current guidelines for patients who present with complaints or symptoms that may be related to COVID-19. Patient was seen while provider was wearing PPE. Triage Nursing notes reviewed. Prior medical records reviewed Vital Signs: reviewed and remarkable for no significant abnormalities Differential diagnosis: Reactive airway disease, pneumonia, pneumothorax, COPD, CHF, infections, cardiac ischemia, pulmonary embolism, musculoskeletal, gastrointestinal, as well as other pathologies. ER treatment provided: See below Diagnostics interpreted by me: ECG: Sinus tachycardia incomplete left bundle branch block no ST elevation or depression T wave inversions in the lateral leads QTC is 492 ventricular rate is 109 EKG is compared to 07/18/2020 no significant change was found. Laboratory studies: As stated above and show below. Imaging studies: See below Consultation(s): Internal Medicine ED COURSE: Procedures: none PDMP:reviewed and no issues Critical Care: I have personally spent greater than 30 minutes of critical care time in the direct management of this patient. This includes bedside care, interpretation of diagnostic studies, and testing, discussion with consultants, patient, and family members, and other required patient management activities. This 30 minutes is in excess of all separately billable procedures. 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 Underwent procedure without any complications monitored over night and discharged home. Obstructive sleep apnea SOB (shortness of breath) Umbilical hernia Vitamin D insufficiency Previously deficient, taking Vit D supplementation Surgical History History of carpal tunnel surgery History of cholecystectomy S/P tonsillectomy Family History Father , age 57 of an [place]. 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 Beliefs That Will Affect Care: None marital status: Current Living Situation: Spouse current occupational status: unemployed How many Children do You have: 0 Feels Safe at Home: Yes Childhood Exposure to Second-Hand Smoke: Yes Dental Care, Regularly: Yes Physical Activity Frequency: Does not Exercise Assistive Devices: None Allergies Allergies Allergy/AdvReac Type Severity Reaction Status Date / Time ceftriaxone Allergy Severe SHORTNESS Verified 08/18/20 18:13 OF BREATH lidocaine Allergy Severe SHORTNESS Verified 08/18/20 18:13 OF BREATH, diaphoretic, hives procaine Allergy Severe SHORTNESS Verified 08/18/20 18:13 OF BREATH, diaphoretic, hives amoxicillin Allergy Intermediate HIVES/FACIAL Verified 08/18/20 18:13 SWELLING clavulanic acid Allergy Intermediate HIVES/FACIAL Verified 08/18/20 18:13 SWELLING lisinopril Allergy Intermediate HIVES Verified 08/18/20 18:13 acetaminophen AdvReac Mild NAUSEA Verified 08/18/20 18:13 albuterol AdvReac Mild proair Verified 08/18/20 18:13 "trouble taking breaths" Fish Containing Products AdvReac Unknown Verified 08/18/20 18:13 Home Meds Home Medications Medication Instructions Recorded Confirmed nitroglycerin [Nitrostat] 0.4 mg SUBLINGUAL UD PRN 04/24/19 08/18/20 cholecalciferol (vitamin D3) 50 mcg PO BID 10/04/19 08/18/20 [Vitamin D3] aspirin 81 mg tablet,delayed 81 mg PO DAILY tab 07/10/20 08/18/20 release apixaban 5 mg tablet 5 mg PO BID tab 08/10/20 08/18/20 atorvastatin 10 mg tablet 10 mg PO DAILY 08/10/20 08/18/20 isosorbide mononitrate 30 mg 60 mg PO QAM tab 08/10/20 08/18/20 tablet,extended release 24 hr sacubitril 97 mg-valsartan 103 mg 1 tab PO BID 08/10/20 08/18/20 tablet spironolactone 25 mg tablet 25 mg PO .COMPLEX 08/10/20 08/18/20 torsemide 80 mg PO BID 08/18/20 08/18/20 warfarin 5 mg PO QPM 08/18/20 08/18/20 Previous Rx's Medication Instructions Recorded dulaglutide 1.5 mg/0.5 mL 1.5 mg SUBCUT WK #2 ml 04/21/20 subcutaneous pen injector metoprolol succinate 100 mg 100 mg PO BID #60 tab 06/30/20 tablet,extended release 24 hr blood sugar diagnostic #200 ea 07/07/20 Xylo, IncTouch Verio Flex meter #1 ea NS 07/27/20 Oxygen Home #1 ea 08/10/20 nystatin 100,000 unit/gram topical 1 applic TOPICAL BID #15 g 08/10/20 ointment Results & Data (ED) Vital Signs Vital Signs - 24 hr 08/18/20 18:07 08/18/20 18:19 08/18/20 18:20 Temperature 36.6 C Temperature Source Oral Pulse Rate 110 H 118 H Pulse Rate [Right Finger] 110 H Pulse Rate from SpO2 Sensor 111 H Respiratory Rate 19 20 24 Respiratory Effort / Characteristics Spontaneous Short of Breath Respiratory Depth Normal Blood Pressure 202/150 H 202/150 H Blood Pressure Mean 167 167 Blood Pressure Position Sitting Pulse Oximetry 94 95 97 Oxygen Delivery Method Nasal Cannula Nasal Cannula Oxygen Flow Rate 6 6 Sepsis Recent Fever Within 48 Hours No Sepsis New/Unexplained Change in Mental Status No Sepsis Action Taken by Nursing No Action Required 08/18/20 18:23 08/18/20 18:24 08/18/20 18:31 Temperature Temperature Source Pulse Rate Pulse Rate [Right Finger] Pulse Rate from SpO2 Sensor Respiratory Rate Respiratory Effort / Characteristics Spontaneous Short of Breath Respiratory Depth Normal Blood Pressure Blood Pressure Mean Blood Pressure Position Pulse Oximetry Oxygen Delivery Method Nasal Cannula Nasal Cannula Room Air Oxygen Flow Rate 6 Sepsis Recent Fever Within 48 Hours Sepsis New/Unexplained Change in Mental Status Sepsis Action Taken by Nursing Laboratory Data Result diagrams: 08/20/20 11:50 08/20/20 11:50 Lab Results 08/18/20 08/18/20 08/18/20 Range/Units 18:25 18:25 18:25 WBC 9.43 (4.8-10.8) K/uL RBC 5.00 (4.7-6.1) M/uL Hgb 14.3 (14.0-18.0) g/dL Hct 42.0 (42-52) % MCV 84.0 (80-100) fL MCH 28.6 (25-34) pg MCHC 34.0 (32-36) g/dL RDW Std Deviation 44.5 (36.4-46.3) fL RDW Coeff of Zoltan 14.6 H (11.5-14.5) % Plt Count 200 (130-400) K/uL MPV 10.2 (7.4-10.4) fL Immature Gran % (Auto) 0.3 % Neut % (Auto) 73.1 % Lymph % (Auto) 19.9 % Crenshaw % (Auto) 6.2 % Eos % (Auto) 0.4 % Baso % (Auto) 0.1 % Neut # (Auto) 6.89 H (1.4-6.5) K/uL Lymph # (Auto) 1.88 (1.2-3.4) K/uL Crenshaw # (Auto) 0.58 (0.11-0.59) K/uL Eos # (Auto) 0.04 (0-0.5) K/uL Baso # (Auto) 0.01 (0-0.2) K/uL Immature Gran # (Auto) 0.03 H (0.00-0.02) K/uL PT (9.0-12.0) Seconds INR (0.9-1.1) APTT 25.5 (21.0-31.0) Seconds PTT Ratio 1.0 Sodium 137 (136-145) mmol/L Potassium 4.0 (3.5-5.1) mmol/L Chloride 105 (98-107) mmol/L Carbon Dioxide 25 (21-32) mmol/L Anion Gap 7.0 (3-11) BUN 11 (7-18) mg/dl Creatinine 0.97 (0.6-1.4) mg/dl Est Cr Clr Drug Dosing 147.8 ml/min Est GFR ( Amer) 110.4 ml/min Est GFR (Non-Af Amer) 95.2 ml/min BUN/Creatinine Ratio 11.0 (10-20) Glucose 330 H* (70-99) mg/dl POC Glucose (70-99) mg/dl Calcium 8.6 (8.5-10.1) mg/dl Total Bilirubin 1.3 H (0.2-1) mg/dl AST 20 (15-37) U/L ALT 35 (12-78) U/L Alkaline Phosphatase 99 (45-117) U/L Total Creatine Kinase 122 (39-308) U/L CK-MB (CK-2) 2.0 (0.5-3.6) ng/ml CK/CKMB % Calc 1.6 (0-3.0) Troponin I 0.036 (0-0.045) ng/ml NT-Pro-B Natriuret Pep 2158 H (0-450) pg/ml Total Protein 7.3 (6.4-8.2) gm/dl Albumin 3.1 L (3.4-5.0) gm/dl Globulin 4.2 H (2.5-4.0) gm/dl Albumin/Globulin Ratio 0.7 L (0.9-2) Lipase 120 (73-393) U/L Beta-Hydroxybutyric Acd 2.18 (0.2-2.81) mg/dl COVID-19 Eval Order SARS-CoV-2 (PCR) (Negative) 08/18/20 08/18/20 08/18/20 Range/Units 18:34 21:31 23:23 WBC (4.8-10.8) K/uL RBC (4.7-6.1) M/uL Hgb (14.0-18.0) g/dL Hct (42-52) % MCV (80-100) fL MCH (25-34) pg MCHC (32-36) g/dL RDW Std Deviation (36.4-46.3) fL RDW Coeff of Zoltan (11.5-14.5) % Plt Count (130-400) K/uL MPV (7.4-10.4) fL Immature Gran % (Auto) % Neut % (Auto) % Lymph % (Auto) % Crenshaw % (Auto) % Eos % (Auto) % Baso % (Auto) % Neut # (Auto) (1.4-6.5) K/uL Lymph # (Auto) (1.2-3.4) K/uL Crenshaw # (Auto) (0.11-0.59) K/uL Eos # (Auto) (0-0.5) K/uL Baso # (Auto) (0-0.2) K/uL Immature Gran # (Auto) (0.00-0.02) K/uL PT 10.4 (9.0-12.0) Seconds INR 1.0 (0.9-1.1) APTT (21.0-31.0) Seconds PTT Ratio Sodium (136-145) mmol/L Potassium (3.5-5.1) mmol/L Chloride (98-107) mmol/L Carbon Dioxide (21-32) mmol/L Anion Gap (3-11) BUN (7-18) mg/dl Creatinine (0.6-1.4) mg/dl Est Cr Clr Drug Dosing ml/min Est GFR ( Amer) ml/min Est GFR (Non-Af Amer) ml/min BUN/Creatinine Ratio (10-20) Glucose (70-99) mg/dl POC Glucose 254 H (70-99) mg/dl Calcium (8.5-10.1) mg/dl Total Bilirubin (0.2-1) mg/dl AST (15-37) U/L ALT (12-78) U/L Alkaline Phosphatase (45-117) U/L Total Creatine Kinase (39-308) U/L CK-MB (CK-2) (0.5-3.6) ng/ml CK/CKMB % Calc (0-3.0) Troponin I 0.034 (0-0.045) ng/ml NT-Pro-B Natriuret Pep (0-450) pg/ml Total Protein (6.4-8.2) gm/dl Albumin (3.4-5.0) gm/dl Globulin (2.5-4.0) gm/dl Albumin/Globulin Ratio (0.9-2) Lipase (73-393) U/L Beta-Hydroxybutyric Acd (0.2-2.81) mg/dl COVID-19 Eval Order SARS-CoV-2 (PCR) (Negative) 08/18/20 08/18/20 Range/Units 23:55 23:55 WBC (4.8-10.8) K/uL RBC (4.7-6.1) M/uL Hgb (14.0-18.0) g/dL Hct (42-52) % MCV (80-100) fL MCH (25-34) pg MCHC (32-36) g/dL RDW Std Deviation (36.4-46.3) fL RDW Coeff of Zoltan (11.5-14.5) % Plt Count (130-400) K/uL MPV (7.4-10.4) fL Immature Gran % (Auto) % Neut % (Auto) % Lymph % (Auto) % Crenshaw % (Auto) % Eos % (Auto) % Baso % (Auto) % Neut # (Auto) (1.4-6.5) K/uL Lymph # (Auto) (1.2-3.4) K/uL Crenshaw # (Auto) (0.11-0.59) K/uL Eos # (Auto) (0-0.5) K/uL Baso # (Auto) (0-0.2) K/uL Immature Gran # (Auto) (0.00-0.02) K/uL PT (9.0-12.0) Seconds INR (0.9-1.1) APTT (21.0-31.0) Seconds PTT Ratio Sodium (136-145) mmol/L Potassium (3.5-5.1) mmol/L Chloride (98-107) mmol/L Carbon Dioxide (21-32) mmol/L Anion Gap (3-11) BUN (7-18) mg/dl Creatinine (0.6-1.4) mg/dl Est Cr Clr Drug Dosing ml/min Est GFR ( Amer) ml/min Est GFR (Non-Af Amer) ml/min BUN/Creatinine Ratio (10-20) Glucose (70-99) mg/dl POC Glucose (70-99) mg/dl Calcium (8.5-10.1) mg/dl Total Bilirubin (0.2-1) mg/dl AST (15-37) U/L ALT (12-78) U/L Alkaline Phosphatase (45-117) U/L Total Creatine Kinase (39-308) U/L CK-MB (CK-2) (0.5-3.6) ng/ml CK/CKMB % Calc (0-3.0) Troponin I (0-0.045) ng/ml NT-Pro-B Natriuret Pep (0-450) pg/ml Total Protein (6.4-8.2) gm/dl Albumin (3.4-5.0) gm/dl Globulin (2.5-4.0) gm/dl Albumin/Globulin Ratio (0.9-2) Lipase (73-393) U/L Beta-Hydroxybutyric Acd (0.2-2.81) mg/dl COVID-19 Eval Order Covid19 at [facility] SARS-CoV-2 (PCR) NEGATIVE (Negative) Administered Medications Acetaminophen (Acetaminophen 325 Mg Tab) 650 mg PO Q4H PRN PRN Reason: pain/fever Stop: 09/18/20 02:21 Last Admin: 08/19/20 08:11 Dose: 650 mg Documented by: [id number] Apixaban (Apixaban 5 Mg Tablet) 5 mg PO BID [facility] Stop: 09/18/20 08:59 Last Admin: 08/20/20 09:02 Dose: 5 mg Documented by: [id number] Admin: 08/19/20 20:34 Dose: 5 mg Documented by: [id number] Admin: 08/19/20 08:10 Dose: 5 mg Documented by: [id number] Aspirin (Aspirin 81 Mg Ectab) 81 mg PO DAILY [facility] Stop: 09/18/20 08:59 Last Admin: 08/20/20 09:03 Dose: 81 mg Documented by: [id number] Admin: 08/19/20 08:11 Dose: 81 mg Documented by: [id number] Atorvastatin Calcium (Atorvastatin 10 Mg Tab) 10 mg PO DAILY [facility] Stop: 09/18/20 08:59 Last Admin: 08/20/20 09:03 Dose: 10 mg Documented by: [id number] Admin: 08/19/20 08:11 Dose: 10 mg Documented by: [id number] Insulin Aspart (Insulin Aspart 100 Units/Ml 3 Ml Pen) 0 units SC ACHS [facility] Stop: 09/18/20 07:29 Last Admin: 08/20/20 17:54 Dose: 13 units Documented by: [id number] Cosigned by: [id number] Admin: 08/20/20 13:02 Dose: 20 units Documented by: [id number] Cosigned by: [id number] Admin: 08/20/20 09:05 Dose: 12 units Documented by: [id number] Cosigned by: [id number] Admin: 08/19/20 21:09 Dose: 10 units Documented by: [id number] Cosigned by: [id number] Admin: 08/19/20 17:48 Dose: 11 units Documented by: [id number] Cosigned by: [id number] Admin: 08/19/20 12:45 Dose: 16 units Documented by: [id number] Cosigned by: [id number] Admin: 08/19/20 09:35 Dose: 13 units Documented by: [id number] Cosigned by: [id number] Isosorbide Mononitrate (Isosorbide Crenshaw Extended Rel 60 Mg Tabcr) 60 mg PO QAM [facility] Stop: 09/18/20 08:59 Last Admin: 08/20/20 09:02 Dose: 60 mg Documented by: [id number] Admin: 08/19/20 08:10 Dose: 60 mg Documented by: [id number] Metoprolol Succinate (Metoprolol Succ 50mg Ext Rel Tab) 100 mg PO BID [facility] Stop: 09/18/20 08:59 Last Admin: 08/20/20 09:01 Dose: 100 mg Documented by: [id number] Admin: 08/19/20 20:33 Dose: 100 mg Documented by: [id number] Admin: 08/19/20 08:10 Dose: 100 mg Documented by: [id number] Nystatin (Nystatin Oint 15 Gm Tube) 1 appln EXT BID [facility] Stop: 09/18/20 08:59 Last Admin: 08/20/20 09:02 Dose: 1 appln Documented by: [id number] Admin: 08/19/20 20:34 Dose: 1 appln Documented by: [id number] Admin: 08/19/20 08:11 Dose: 1 appln Documented by: [id number] Sacubitril/Valsartan (Sacubitril-Valsartan 97-103 Mg Tab) 1 tab PO BID [facility] Stop: 09/18/20 08:59 Last Admin: 08/20/20 09:02 Dose: 1 tab Documented by: [id number] Admin: 08/19/20 20:34 Dose: 1 tab Documented by: [id number] Admin: 08/19/20 08:10 Dose: 1 tab Documented by: [id number] Spironolactone (Spironolactone 25 Mg Tab) 50 mg PO QAM [facility] Stop: 09/18/20 08:59 Last Admin: 08/19/20 17:22 Dose: 50 mg Documented by: [id number] Admin: 08/19/20 08:10 Dose: 50 mg Documented by: [id number] Spironolactone (Spironolactone 25 Mg Tab) 25 mg PO DAILY@1700 [facility] Stop: 09/18/20 16:59 Last Admin: 08/20/20 16:56 Dose: 25 mg Documented by: [id number] Admin: 08/19/20 17:57 Dose: 25 mg Documented by: [id number] Torsemide (Torsemide 20 Mg Tab) 80 mg PO [id number] [facility]; Protocol Stop: 09/18/20 08:59 Last Admin: 08/20/20 16:55 Dose: 80 mg Documented by: [id number] Admin: 08/20/20 09:03 Dose: 80 mg Documented by: [id number] Admin: 08/19/20 17:22 Dose: 80 mg Documented by: [id number] Admin: 08/19/20 08:11 Dose: 80 mg Documented by: [id number] Discontinued Medications Furosemide (Furosemide 40 Mg/4 Ml Vial) 40 mg IV NOW STA Stop: 08/18/20 18:10 Last Admin: 08/18/20 18:28 Dose: 40 mg Documented by: [id number] Insulin Glargine (Insulin Glargine Solostar 100 Units/Ml 3 Ml Pen) 10 units SC BID [facility] Stop: 09/18/20 08:59 Last Admin: 08/20/20 09:04 Dose: 10 units Documented by: [id number] Cosigned by: [id number] Admin: 08/19/20 21:10 Dose: 10 units Documented by: [id number] Cosigned by: [id number] Admin: 08/19/20 10:46 Dose: 10 units Documented by: [id number] Cosigned by: [id number] Insulin Glargine (Insulin Glargine Solostar 100 Units/Ml 3 Ml Pen) 10 units SC NOW ONE Stop: 08/20/20 11:46 Last Admin: 08/20/20 13:04 Dose: 10 units Documented by: [id number] Cosigned by: [id number] Insulin Human Regular (Novolin-R Insulin Per Unit Charge) 10 units IV NOW STA Stop: 08/18/20 19:02 Last Admin: 08/18/20 19:26 Dose: 10 units Documented by: [id number] Cosigned by: [id number] Levalbuterol HCl (Levalbuterol Hcl 1.25 Mg/3 Ml Neb) 1.25 mg NEB NOW STA Stop: 08/18/20 18:10 Last Admin: 08/18/20 18:19 Dose: 1.25 mg Documented by: [id number] Morphine Sulfate (Morphine Sulfate 2 Mg/Ml Carp) 2 mg IV NOW STA Stop: 08/19/20 20:55 Last Admin: 08/19/20 21:09 Dose: 2 mg Documented by: [id number] Torsemide (Torsemide 10 Mg Tab) 80 mg PO NOW STA Stop: 08/18/20 21:02 Last Admin: 08/18/20 21:44 Dose: 80 mg Documented by: [id number] Discharge Plan Visit Data Chief Complaint: Shortness of Breath/Dyspnea Stated Complaint: SOB ED Provider: Kan Pollock Discharge Problem: CHF (congestive heart failure) Patient Disposition: Admitted As Inpatient Condition: Good Discharge Instructions Interventions: ED Discharge Assessment Last Done: 08/19/20 02:08 Discharge Problem: CHF (congestive heart failure) Qualifiers: Heart failure type: unspecified Heart failure chronicity: unspecified Qualified Code(s): I50.9 - Heart failure, unspecified
[2020-08-18 19:11] LABS: Albumin Globulin Ratio 0.7 (0.9-2); Bilirubin,Total 1.3 mg/dl (0.2-1); Globulin 4.2 gm/dl (2.5-4.0); Total Protein 7.3 gm/dl (6.4-8.2); Troponin I 0.036 ng/ml (0-0.045)
[2020-08-18 19:19] LABS: Beta-Hydroxybutyrate 2.18 mg/dl (0.2-2.81)
[2020-08-18 19:33] LABS: Prothrombin Time 10.4 Seconds (9.0-12.0)
--- NOTE | 2020-08-18 19:40 | XRay Report ---
XR chest 1V portable HISTORY: Atypical Chest Pain COMPARISON: Chest 07/18/2020. FINDINGS: The heart remains moderately enlarged. There is progressive interstitial/vascular thickenin g, small bilateral pleural effusions, bibasilar densities. This likely represents pulmonary edema. Th ere is a left-sided single lead pacemaker/defibrillator. No pneumothorax. IMPRESSION: 1. Interval progression of the mild pulmonary edema and small bilateral pleural effusions. 2. Moderate cardiomegaly persists. 3. A few bibasilar densities are nonspecific but favor atelectasis from the pleural effusions. ACT 112: Negative or not required by law. Electronically signed by: Andrea Bear M.D. 08/18/2020 7:39 PM
[2020-08-18] MEDS ORDERED: TORSEMIDE 10 MG TAB PO STA (21:01)
[2020-08-19] MEDS ORDERED: DEXTROSE 50% 50 ML SYRINGE IV PRN (02:22)
[2020-08-19] MEDS ORDERED: ONDANSETRON INJ 2 MG/ML 2 ML VIAL IV PRN (02:22)
[2020-08-19] MEDS ORDERED: GLUCAGON FOR INJ 1 MG VIAL SQ PRN (02:22)
[2020-08-19] MEDS ORDERED: ACETAMINOPHEN 325 MG TAB PO PRN (02:22)
[2020-08-19] MEDS ORDERED: GLUCOSE 40% GEL 15 GM TUBE PO PRN (02:22)
[2020-08-19] MEDS ORDERED: GLUCOSE 10 TABS/TUBE PO PRN (02:22)
[2020-08-19] MEDS ORDERED: CARBOHYDRATES FOR HYPOGLYCEMIA PO PRN (02:22)
--- NOTE | 2020-08-19 03:26 | History & Physical Report ---
Date of Service August 19, 2020 Assessment & Plan (1) SOB (shortness of breath): 44yo male with multiple medical problems, history of CHF due to NICM, morbid obesity, MARIELENA presenting with two days of SOB and BRISCOE. Concern for volume overload -Observation to medical floor -Lasix and Torsemide given in ER - monitor response Present on Admission?: Yes (2) Diabetes mellitus type II, uncontrolled: Chronic -Lantus 10u BID -ISS -Goal blood sugar 100 - 140 Present on Admission?: Yes (3) NICM (nonischemic cardiomyopathy): History of NICM, AICD in place -Continue Metoprolol 100mg po BID -Continue Entresto -Continue Spironolactone -Continue Torsemide -Continue Lasix -Continue Isosorbide Mononitrite Present on Admission?: Yes (4) Hypertension: BLood pressure stable -Continue medications as above F/E/N - Diuresis as above. Montior electrolytes and replete as needed, CC/AHA diet as tolerated Ppx - Patient on Apixaban Code - Full Dispo - Observation to medical floor Present on Admission?: Yes Admission and Anticipated Discharge Date Admission Date: August 19, 2020 History of Present Illness Chief Complaint: SOB Primary Care Provider: CM Hitchcock Alok Huff is a 44yo male with multiple medical problems presenting with dyspnea with minimal exertion, lightheadedness ongoing for two days. He denies cough, chest pain, palpitations, abdominal pain, nausea, vomiting, diarrhea or constipation. No additional complaints. Inhalers do not help. Afebrile, HD stable in ER. NO respiratory distress. Adequate oxygenation on patient's baseline 6L of O2 by [facility] ER Course: Lasix, Insulin, Xopenex, Torsemide Allergies Allergy/AdvReac Type Severity Reaction Status Date / Time ceftriaxone Allergy Severe SHORTNESS Verified 08/18/20 18:13 OF BREATH lidocaine Allergy Severe SHORTNESS Verified 08/18/20 18:13 OF BREATH, diaphoretic, hives procaine Allergy Severe SHORTNESS Verified 08/18/20 18:13 OF BREATH, diaphoretic, hives amoxicillin Allergy Intermediate HIVES/FACIAL Verified 08/18/20 18:13 SWELLING clavulanic acid Allergy Intermediate HIVES/FACIAL Verified 08/18/20 18:13 SWELLING lisinopril Allergy Intermediate HIVES Verified 08/18/20 18:13 acetaminophen AdvReac Mild NAUSEA Verified 08/18/20 18:13 albuterol AdvReac Mild proair Verified 08/18/20 18:13 "trouble taking breaths" Fish Containing Products AdvReac Unknown Verified 08/18/20 18:13 Home Medications Medication Instructions Recorded Confirmed Type nitroglycerin [Nitrostat] 0.4 mg SUBLINGUAL UD PRN 04/24/19 08/18/20 History cholecalciferol (vitamin D3) 50 mcg PO BID 10/04/19 08/18/20 History [Vitamin D3] dulaglutide 1.5 mg/0.5 mL 1.5 mg SUBCUT WK #2 ml 04/21/20 08/18/20 Rx subcutaneous pen injector metoprolol succinate 100 mg 100 mg PO BID #60 tab 06/30/20 08/18/20 Rx tablet,extended release 24 hr blood sugar diagnostic #200 ea 07/07/20 Rx aspirin 81 mg tablet,delayed 81 mg PO DAILY tab 07/10/20 08/18/20 History release OneTouch Verio Flex meter #1 ea NS 07/27/20 Rx Oxygen Home #1 ea 08/10/20 08/10/20 Rx apixaban 5 mg tablet 5 mg PO BID tab 08/10/20 08/18/20 History atorvastatin 10 mg tablet 10 mg PO DAILY 08/10/20 08/18/20 History isosorbide mononitrate 30 mg 60 mg PO QAM tab 08/10/20 08/18/20 History tablet,extended release 24 hr nystatin 100,000 unit/gram topical 1 applic TOPICAL BID #15 g 08/10/20 08/18/20 Rx ointment sacubitril 97 mg-valsartan 103 mg 1 tab PO BID 08/10/20 08/18/20 History tablet spironolactone 25 mg tablet 25 mg PO .COMPLEX 08/10/20 08/18/20 History torsemide 80 mg PO BID 08/18/20 08/18/20 History warfarin 5 mg PO QPM 08/18/20 08/18/20 History Past Med/Surg History Medical History Cellulitis of neck Chronic respiratory failure 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 Underwent procedure without any complications monitored over night and discharged home. Obstructive sleep apnea SOB (shortness of breath) Umbilical hernia Vitamin D insufficiency Previously deficient, taking Vit D supplementation Surgical History History of carpal tunnel surgery History of cholecystectomy S/P tonsillectomy Family History Father , age 57 of an ND. Heart disease Myocardial infarction Mother , age 67 of a ruptured neck vessel Sudden Other Depression Lung disease No pertinent family history Denies family history of Ovarian cancer Prostate cancer Breast cancer Colorectal cancer Social History Smoking Status: Former smoker Age Started Using Tobacco: 14; Age Quit Using Tobacco: 18; Cigarettes Per Day: 40-50; Second Hand Exposure: No; Hx Alcohol Use: Yes Alcohol type: other Hx Substance Use: No Preferred Language: Vietnamese Communication Ability: Effective Visual Impairment: No Limitations Hearing Ability: Normal Principal Scientist Required: No Beliefs That Will Affect Care: None marital status: Current Living Situation: Spouse current occupational status: unemployed How many Children do You have: 0 Other Information That Helps Us Care for You: No Feels Safe at Home: Yes Safety Concerns: Feels Safe At This Time Childhood Exposure to Second-Hand Smoke: Yes Dental Care, Regularly: Yes Physical Activity Frequency: Does not Exercise Assistive Devices: Oxygen - Continuous Review of Systems Review of Systems: All systems reviewed & are unremarkable except as noted in HPI & below Physical Exam Physical Exam: General: morbidly obese male patient resting comfortably, NAD, non-toxic in appearance, AA&O x 4 Skin: warm, dry, intact, bruising on abdominal wall HEENT: NC/AT, PERRL, EOMI, anicteric sclera, conjunctiva without injection, external ear normal to inspection and nontender, nares patent, moist mucus membranes, dentition intact, no oropharyngeal lesions, neck supple, trachea midline, no LAD, no thyromegaly, no JVD Heart: +S1/S2, regular, no m/r/g, exam limited secondary to body habitus Lungs: diminished breath sounds bilaterally, no rales/rhonchi/wheezes Abd: +BS, soft, NT/ND, no masses/organomegaly/ascites Ext: warm, 2+ pulses in UE/LE bilaterally, no clubbing/cyanosis or edema, chr onic venous stasis changes Neuro: nonfocal, patient AA&O x 4, speech intact, no facial droop, moving all extremities on command with equal strength 5/5 Results & Data Results & Data ([facility]) Vital Signs (Past 12 Hours) Vital Signs Temp Pulse Pulse Resp BP BP Pulse Ox 08/19/20 02:10 36.7 C 26 H 153/121 H 98 08/19/20 02:08 54 L 20 151/113 H 97 08/19/20 01:02 54 L 20 156/110 H 97 08/19/20 00:11 53 L 24 164/120 H 97 08/18/20 22:31 98 H 24 197/141 H 92 08/18/20 22:16 94 H 27 H 185/140 H 91 08/18/20 22:00 108 H 31 H 177/136 H 94 08/18/20 21:45 106 H 25 H 206/141 H 96 08/18/20 21:30 96 H 19 195/158 H 96 08/18/20 21:15 77 26 H 194/149 H 94 08/18/20 21:01 93 H 19 191/127 H 96 08/18/20 20:45 107 H 31 H 171/130 H 96 08/18/20 20:30 110 H 34 H 195/157 H 98 08/18/20 20:15 122 H 24 161/121 H 98 08/18/20 20:00 102 H 27 H 174/112 H 92 08/18/20 19:30 80 25 H 189/129 H 95 08/18/20 19:02 105 H 22 183/148 H 94 08/18/20 18:35 106 H 18 208/138 H 94 08/18/20 18:20 110 H 24 97 08/18/20 18:19 36.6 C 118 H 20 202/150 H 95 08/18/20 18:07 110 H 19 202/150 H 94 Laboratory Results Laboratory Results WBC 9.43 K/uL (4.8-10.8) 08/18/20 18:25 RBC 5.00 M/uL (4.7-6.1) 08/18/20 18:25 Hgb 14.3 g/dL (14.0-18.0) 08/18/20 18:25 Hct 42.0 % (42-52) 08/18/20 18:25 MCV 84.0 fL (80-100) 08/18/20 18:25 MCH 28.6 pg (25-34) 08/18/20 18:25 MCHC 34.0 g/dL (32-36) 08/18/20 18:25 RDW Std Deviation 44.5 fL (36.4-46.3) 08/18/20 18:25 RDW Coeff of Zoltan 14.6 % (11.5-14.5) H 08/18/20 18:25 Plt Count 200 K/uL (130-400) 08/18/20 18:25 MPV 10.2 fL (7.4-10.4) 08/18/20 18:25 Immature Gran % (Auto) 0.3 % 08/18/20 18:25 Neut % (Auto) 73.1 % 08/18/20 18:25 Lymph % (Auto) 19.9 % 08/18/20 18:25 Harvey % (Auto) 6.2 % 08/18/20 18:25 Eos % (Auto) 0.4 % 08/18/20 18:25 Baso % (Auto) 0.1 % 08/18/20 18:25 Neut # (Auto) 6.89 K/uL (1.4-6.5) H 08/18/20 18:25 Lymph # (Auto) 1.88 K/uL (1.2-3.4) 08/18/20 18:25 Harvey # (Auto) 0.58 K/uL (0.11-0.59) 08/18/20 18:25 Eos # (Auto) 0.04 K/uL (0-0.5) 08/18/20 18:25 Baso # (Auto) 0.01 K/uL (0-0.2) 08/18/20 18:25 Immature Gran # (Auto) 0.03 K/uL (0.00-0.02) H 08/18/20 18:25 PT 10.4 Seconds (9.0-12.0) 08/18/20 18:34 INR 1.0 (0.9-1.1) 08/18/20 18:34 APTT 25.5 Seconds (21.0-31.0) 08/18/20 18:25 PTT Ratio 1.0 08/18/20 18:25 Sodium 137 mmol/L (136-145) 08/18/20 18:25 Potassium 4.0 mmol/L (3.5-5.1) 08/18/20 18:25 Chloride 105 mmol/L (98-107) 08/18/20 18:25 Carbon Dioxide 25 mmol/L (21-32) 08/18/20 18:25 Anion Gap 7.0 (3-11) 08/18/20 18:25 BUN 11 mg/dl (7-18) 08/18/20 18:25 Creatinine 0.97 mg/dl (0.6-1.4) 08/18/20 18:25 Est Cr Clr Drug Dosing 147.8 ml/min 08/18/20 18:25 Est GFR ( Amer) 110.4 ml/min 08/18/20 18:25 Est GFR (Non-Af Amer) 95.2 ml/min 08/18/20 18:25 BUN/Creatinine Ratio 11.0 (10-20) 08/18/20 18:25 Glucose 330 mg/dl (70-99) H* 08/18/20 18:25 POC Glucose 254 mg/dl (70-99) H 08/18/20 23:23 Calcium 8.6 mg/dl (8.5-10.1) 08/18/20 18:25 Total Bilirubin 1.3 mg/dl (0.2-1) H 08/18/20 18:25 AST 20 U/L (15-37) 08/18/20 18:25 ALT 35 U/L (12-78) 08/18/20 18:25 Alkaline Phosphatase 99 U/L (45-117) 08/18/20 18:25 Total Creatine Kinase 122 U/L (39-308) 08/18/20 18:25 CK-MB (CK-2) 2.0 ng/ml (0.5-3.6) 08/18/20 18:25 CK/CKMB % Calc 1.6 (0-3.0) 08/18/20 18:25 Troponin I 0.034 ng/ml (0-0.045) 08/18/20 21:31 NT-Pro-B Natriuret Pep 2158 pg/ml (0-450) H 08/18/20 18:25 Total Protein 7.3 gm/dl (6.4-8.2) 08/18/20 18:25 Albumin 3.1 gm/dl (3.4-5.0) L 08/18/20 18:25 Globulin 4.2 gm/dl (2.5-4.0) H 08/18/20 18:25 Albumin/Globulin Ratio 0.7 (0.9-2) L 08/18/20 18:25 Lipase 120 U/L (73-393) 08/18/20 18:25 Beta-Hydroxybutyric Acd 2.18 mg/dl (0.2-2.81) 08/18/20 18:25 COVID-19 Eval Order Covid19 at [facility] 08/18/20 23:55 SARS-CoV-2 (PCR) NEGATIVE (Negative) 08/18/20 23:55 Impressions Chest X-Ray 08/18/20 18:08 XR chest 1V portable HISTORY: Atypical Chest Pain COMPARISON: Chest 07/18/2020. FINDINGS: The heart remains moderately enlarged. There is progressive interstitial/vascular thickening, small bilateral pleural effusions, bibasilar densities. This likely represents pulmonary edema. There is a left-sided single lead pacemaker/defibrillator. No pneumothorax. IMPRESSION: 1. Interval progression of the mild pulmonary edema and small bilateral pleural effusions. 2. Moderate cardiomegaly persists. 3. A few bibasilar densities are nonspecific but favor atelectasis from the pleural effusions. ACT 112: Negative or not required by law. Electronically signed by: Andrea Bear M.D. 08/18/2020 7:39 PM ECG Additional Comments: EKG wtih ST at 109, TW changes similar to prior Code Status & VTE Plan VTE Prophylaxis Plan VTE Prophylaxis will be ordered: Yes PG Care Time/CCT Total # of Minutes Spent Total Time Spent with Patient: Total time spent is greater than 50% in coordination of care (as documented) at patient's floor/unit and/or counseling patient: Coding Level of Care Code 90505 Initial Inpt Care Lvl 2 Diagnoses SOB (shortness of breath) R06.02 Diabetes mellitus type II, uncontrolled E11.65 Glycemic state: with hyperglycemia NICM (nonischemic cardiomyopathy) I42.8 Hypertension I10 Hypertension type: unspecified (1) Hypertension Hypertension type: unspecified Qualified Code(s): I10 - Essential (primary) hypertension (2) Diabetes mellitus type II, uncontrolled Glycemic state: with hyperglycemia Qualified Code(s): E11.65 - Type 2 diabetes mellitus with hyperglycemia
[2020-08-19] MEDS: SPIRONOLACTONE 25 MG TAB PO SCH ×3 (08:10→17:57)
[2020-08-19] MEDS: METOPROLOL SUCC 50MG EXT REL TAB PO SCH ×2 (08:10→20:33)
[2020-08-19] MEDS: APIXABAN 5 MG TABLET PO SCH ×2 (08:10→20:34)
[2020-08-19] MEDS: SACUBITRIL-VALSARTAN 97-103 MG TAB PO SCH ×2 (08:10→20:34)
[2020-08-19] MEDS: ISOSORBIDE MONO EXTENDED REL 60 MG TABCR PO SCH (08:10)
[2020-08-19] MEDS: NYSTATIN OINT 15 GM TUBE EXT SCH ×2 (08:11→20:34)
[2020-08-19] MEDS: ATORVASTATIN 10 MG TAB PO SCH (08:11)
[2020-08-19] MEDS: ASPIRIN 81 MG ECTAB PO SCH (08:11)
[2020-08-19] MEDS: TORSEMIDE 20 MG TAB PO SCH ×2 (08:11→17:22)
[2020-08-19] MEDS: INSULIN ASPART 100 UNITS/ML 3 ML PEN SC SCH ×4 (09:35→21:09)
[2020-08-19] MEDS: INSULIN GLARGINE SOLOSTAR 100 UNITS/ML 3 ML PEN SC SCH ×2 (10:46→21:10)
[2020-08-19] MEDS ORDERED: MoRPHine SULFATE 2 MG/ML CARP IV STA (20:54)
--- NOTE | 2020-08-19 22:46 | Electrocardiogram Report ---
Test Reason : Blood Pressure : / mmHG Vent. Rate : 109 BPM Atrial Rate : 109 BPM P-R Int : 156 ms QRS Dur : 112 ms QT Int : 366 ms P-R-T Axes : 027 -20 100 degrees QTc Int : 492 ms Sinus tachycardia Possible Left atrial enlargement Abnormal ECG When compared with ECG of 18-JUL-2020 18:23, No significant change was found Confirmed by Abraham Rosen ([id number]) on 08/19/2020 10:46:26 PM Referred By: REFERRED SELF Confirmed By:Abraham Rosen
[2020-08-20] MEDS: METOPROLOL SUCC 50MG EXT REL TAB PO SCH ×2 (09:01→20:44)
[2020-08-20] MEDS: APIXABAN 5 MG TABLET PO SCH ×2 (09:02→20:47)
[2020-08-20] MEDS: NYSTATIN OINT 15 GM TUBE EXT SCH ×2 (09:02→20:44)
[2020-08-20] MEDS: SACUBITRIL-VALSARTAN 97-103 MG TAB PO SCH (09:02)
[2020-08-20] MEDS: ISOSORBIDE MONO EXTENDED REL 60 MG TABCR PO SCH (09:02)
[2020-08-20] MEDS: TORSEMIDE 20 MG TAB PO SCH ×2 (09:03→16:55)
[2020-08-20] MEDS: ASPIRIN 81 MG ECTAB PO SCH (09:03)
[2020-08-20] MEDS: ATORVASTATIN 10 MG TAB PO SCH (09:03)
[2020-08-20] MEDS: INSULIN GLARGINE SOLOSTAR 100 UNITS/ML 3 ML PEN SC SCH ×2 (09:04→20:43)
[2020-08-20] MEDS: INSULIN ASPART 100 UNITS/ML 3 ML PEN SC SCH ×4 (09:05→20:42)
[2020-08-20] MEDS ORDERED: PHARMACY GLYCEMIC MGMT CONSULT PRN (11:41)
[2020-08-20] MEDS ORDERED: INSULIN GLARGINE SOLOSTAR 100 UNITS/ML 3 ML PEN SC ONE (11:45)
[2020-08-20 12:15] LABS: Basophils # (auto) 0.02 K/uL (0-0.2); Basophils % (auto) 0.2 %; Eosinophils # (auto) 0.11 K/uL (0-0.5); Eosinophils % (auto) 1.2 %; Immature Granulocytes # (auto) 0.03 K/uL (0.00-0.02); Immature Granulocytes % (auto) 0.3 %; Lymphocytes # (auto) 2.03 K/uL (1.2-3.4); Lymphocytes % (auto) 22.7 %; Mean Corpuscular Hemoglobin 28.7 pg (25-34); Mean Corpuscular Hgb Conc 33.3 g/dL (32-36); Mean Platelet Volume 10.6 fL (7.4-10.4); Monocytes # (auto) 0.55 K/uL (0.11-0.59); Monocytes % (auto) 6.1 %; Neutrophils # (auto) 6.22 K/uL (1.4-6.5); Neutrophils % (auto) 69.5 %; Platelet Count 216 K/uL (130-400); RDW Coefficient of Variation 14.4 % (11.5-14.5); RDW Standard Deviation 45.1 fL (36.4-46.3); Red Blood Count 5.58 M/uL (4.7-6.1); White Blood Count 8.96 K/uL (4.8-10.8)
--- NOTE | 2020-08-20 12:53 | Pharmacy Report ---
Pharmacy Glycemic Short Note 2 - Date of Service August 20, 2020 - Glycemic Short BSG Results (Last 24 hours): 08/19/20 08/19/20 08/20/20 17:39 20:51 08:39 POC Glucose 248 H 170 H 248 H 08/20/20 12:25 POC Glucose 241 H OUTPATIENT ANTIDIABETIC REGIMEN: * Not clear- patient follows with both [facility] and [facility] Endocrinology. * Trulicity * Premixed insulin vs Lantus? * A1c = 7.9% on 09/12/19 {outdated} * Repeat A1c ordered for 08/21/20 AM ASSESSMENT: * 44yo T2DM male with unknown degree of outpatient control. A1c ordered for tomorrow AM * All BSGs above goal range since admission. On a unit/kg basis current SQ basal bolus insulin regimen currently ordered is quite conservative. Will increase dosing accordingly. Will dose insulin based off of adjusted body weight (instead of total body weight) since BMI well over 35 kg/m2 * Pt would benefit from an inpatient DM Educator consult. PLAN FOR INPATIENT GLYCEMIC CONTROL: * Basal insulin * increase Lantus to 20 units SQ BID * Bolus insulin: tighten CF/CF * NovoLog per scale ACHS or Q6hrs while NPO * Goal Range: Low 100 mg/dL - High 140 mg/dL * Correction Factor: 15 mg/dL/unit * Nutritional / Prandial insulin per carb ratio of 1 unit per 5 grams CHO consumed PLAN FOR DISCHARGE: * A1c = Pending for 08/21/20 * Goal A1c = <8 % based on age and comorbidities * Will update recs once A1c starts * Unsure if patient has ever tried metformin- would be a good option at [place] for weight loss if patient can tolerate it. * Support Patient Self-Management * Healthy Lifestyle (diet, exercise, and smoking cessation) * Disease self-management (SMBG) * Prevention of complications (BP, Lipid goals, Immunizations) * Consider outpatient Diabetes Self-Management Education & Support
[2020-08-20 13:07] LABS: BUN Creatinine Ratio 12.2 (10-20); Calcium 8.7 mg/dl (8.5-10.1); Creatinine Clr Calc Pharmacy 96.5 ml/min; Est GFR (African American) 67.3 ml/min; Est GFR (Non-African American) 58.1 ml/min
[2020-08-20] MEDS: SPIRONOLACTONE 25 MG TAB PO SCH (16:56)
[2020-08-21 06:46] LABS: Basophils # (auto) 0.02 K/uL (0-0.2); Basophils % (auto) 0.2 %; Eosinophils # (auto) 0.11 K/uL (0-0.5); Eosinophils % (auto) 0.9 %; Hematocrit (blood only) 49.2 % (42-52); Hemoglobin 16.5 g/dL (14.0-18.0); Immature Granulocytes # (auto) 0.09 K/uL (0.00-0.02); Immature Granulocytes % (auto) 0.7 %; Lymphocytes # (auto) 3.16 K/uL (1.2-3.4); Lymphocytes % (auto) 25.5 %; Mean Corpuscular Hemoglobin 29.2 pg (25-34); Mean Corpuscular Hgb Conc 33.5 g/dL (32-36); Mean Corpuscular Volume 86.9 fL (80-100); Mean Platelet Volume 10.5 fL (7.4-10.4); Monocytes # (auto) 1.11 K/uL (0.11-0.59); Neutrophils # (auto) 7.88 K/uL (1.4-6.5); Neutrophils % (auto) 63.7 %; Platelet Count 257 K/uL (130-400); RDW Coefficient of Variation 14.8 % (11.5-14.5); RDW Standard Deviation 46.9 fL (36.4-46.3); Red Blood Count 5.66 M/uL (4.7-6.1); White Blood Count 12.37 K/uL (4.8-10.8)
[2020-08-21 07:09] LABS: Estimated Average Glucose 312 mg/dl; Hemoglobin A1C 12.5 % (4.5-5.6)
[2020-08-21 07:14] LABS: BUN Creatinine Ratio 11.2 (10-20); Calcium 9.5 mg/dl (8.5-10.1); Creatinine Clr Calc Pharmacy 49.9 ml/min; Est GFR (African American) 30.2 ml/min; Est GFR (Non-African American) 26.1 ml/min; Potassium 4.1 mmol/L (3.5-5.1)
[2020-08-21] MEDS ORDERED: SODIUM CHLORIDE 0.9% 1000ML 250 ML IV ONE (08:05)
--- NOTE | 2020-08-21 08:08 | Hospitalist Progress Note ---
Date of Service August 20, 2020 Assessment & Plan (1) SOB (shortness of breath): 44yo male with multiple medical problems, history of CHF due to NICM, morbid obesity, MARIELENA presenting with two days of SOB and BRISCOE. Concern for volume overload. -Continue observation to medical floor -Lasix and Torsemide given in ER -Appears to be euvolemic/hypovolemic with increased Cr and low BNP on his usual doses of medication (2) Acute kidney injury: Cr in creased from 0.97 to 1.46. In setting of low BP will hold Entresto and further doses of diuretics (had both doses today) pending repeat BMP AM. (3) Diabetes mellitus type II, uncontrolled: Chronic -Lantus 10u BID -ISS -Goal blood sugar 100 - 140 -Consult pharmacy for glycemic control due to ongoing elevated glucose values (4) NICM (nonischemic cardiomyopathy): History of NICM, AICD in place -Continue Metoprolol 100mg po BID -Hold Entresto -Hold Spironolactone -Hold Torsemide -Continue Isosorbide Mononitrite (5) Hypertension: Blood pressure - mildly hypotensive which is unusual when he is volume overloaded -Continue medications as above F/E/N - Hold diuretics as above. Montior electrolytes and replete as needed, CC/AHA diet as tolerated Ppx - Continue apixaban Code - Full Dispo - Observation to medical floor Admission and Anticipated Discharge Date Admission Date: August 19, 2020 Subjective Patient feels he is close to baseline. Confused that a doctor said he could go home in one day however his at bedside said the doctor said it would be 3-4 days. He reports being complaint with all his medications at home and sticking to a low salt diet. He feels his shortness of breath is back to his baseline and has been walking around today. Leg swelling too is at his baseline. He is suspected to be non-compliant with his medications and has limited understanding of his medical conditions. He tells me in May he was hospitalized for a bleeding stomach ulcer and had an endoscopy but there is not mention of this and I think what he is referring to was a small filling defect on his CT angiogram felt to be a pulmonary embolism for which he was switched from Eliquis to warfarin but has subsequently been switched back to his usual Eliquis although I and the patient are unclear on why he was switched back. He tells me he has lots of things to sort out at home as he is being evicted and needs a new place to stay but he is unable to give me an explanation of why he cannot make these arrangements in the hospital. Review of Systems Review of Systems: All systems reviewed & are unremarkable except as noted in HPI & below Physical Exam Constitutional: well developed and + morbidly obese; no acute distress Eyes: + anicteric sclerae; normal pupil size Respiratory: Auscultation: + diminished lung sounds (bibasal) Cardiovascular: Rate/Rhythm: regular rate and regular rhythm Heart Sounds: no murmur (likely limited by body habitus) Extremities: normal capillary refill and + pedal edema (trace pitting b/l equal pre-tibial); no calf tenderness Musculoskeletal: no cyanosis or clubbing, extremities motor strength 5/5 Skin: no rashes, warm and dry Neurologic: moves all extremities and awake; not confused Psychiatric: A+Ox3, euthymic affect Results & Data Results & Data ([facility]) Vital Signs (Past 12 Hours) Vital Signs Temp Pulse Resp BP BP Pulse Ox 08/20/20 22:25 106/74 08/20/20 22:14 36.5 C 95 H 18 72/54 L 93 08/20/20 20:44 99/76 L PG Care Time/CCT Total # of Minutes Spent Total Time Spent with Patient: Total time spent is greater than 50% in coordination of care (as documented) at patient's floor/unit and/or counseling patient: Coding Level of Care Code 16442 Subseq Obs Care Lvl 2 Diagnoses SOB (shortness of breath) R06.02 Acute kidney injury N17.9 Diabetes mellitus type II, uncontrolled E11.65 Glycemic state: with hyperglycemia NICM (nonischemic cardiomyopathy) I42.8 Hypertension I10 Hypertension type: unspecified (1) Diabetes mellitus type II, uncontrolled Glycemic state: with hyperglycemia Qualified Code(s): E11.65 - Type 2 diabetes mellitus with hyperglycemia (2) Hypertension Hypertension type: unspecified Qualified Code(s): I10 - Essential (primary) hypertension
[2020-08-21] MEDS: NYSTATIN OINT 15 GM TUBE EXT SCH ×2 (08:34→21:59)
[2020-08-21] MEDS: ATORVASTATIN 10 MG TAB PO SCH (08:34)
[2020-08-21] MEDS: ASPIRIN 81 MG ECTAB PO SCH (08:34)
[2020-08-21] MEDS: INSULIN GLARGINE SOLOSTAR 100 UNITS/ML 3 ML PEN SC SCH ×2 (08:35→21:59)
[2020-08-21] MEDS: INSULIN ASPART 100 UNITS/ML 3 ML PEN SC SCH ×4 (08:36→21:59)
--- NOTE | 2020-08-21 08:39 | Hospitalist Progress Note ---
Date of Service August 21, 2020 Assessment & Plan (1) SOB (shortness of breath): 44yo male with multiple medical problems, history of CHF due to NICM, morbid obesity, MARIELENA presenting with two days of SOB and BRISCOE. Concern for volume overload initially however placing him back on his usual meds caused MIKEY - see subjective. -transfer to PCU -Lasix and Torsemide given in ER -Appears to be hypovolemic with increased Cr, low BNP, hypotension on his usual doses of medication (2) Acute kidney injury: Cr increased from 0.97 to 2.83 on his usual medication regimen causing hypotension - suggestive of non-compliance. NSS 250ml bolus now. Vital signs Q2H and will give additional boluses to maintain mean arterial pressure > 65. Repeat BMP in PM BP should improve throughout the day with holding all his usual anti- hypertensive including Entresto, spironolactone, torsemide, ISMN and metoprolol. However given need for increased monitoring will transfer to PCU. Similar event occurred in 01/2019 admission which resolved with IV fluids Recommended otto catheter for accurate monitoring but refused by patient (3) Diabetes mellitus type II, uncontrolled: Chronic -Lantus 10u BID -ISS -Goal blood sugar 100 - 140 -Consult pharmacy for glycemic control due to ongoing elevated glucose values (4) NICM (nonischemic cardiomyopathy): History of NICM, AICD in place -Continue Metoprolol 100mg po BID -Hold Entresto -Hold Spironolactone -Hold Torsemide -Hold Isosorbide Mononitrate (5) Hypertension: Blood pressure - mildly hypotensive which is unusual when he is volume overloaded -Continue medications as above F/E/N - Hold diuretics as above. Montior electrolytes and replete as needed, CC/AHA diet as tolerated Ppx - Hold apixaban (due to MIKEY) Code - Full Dispo - transfer to PCU Admission and Anticipated Discharge Date Admission Date: August 19, 2020 Subjective Worsening renal function today with Cr increased. No change in urine reported by patient. Currently feels at his baseline self despite hypotensive this morning. Patient reports he was only taking torsemide 40mg PO BID instead of 80mg PO BID as listed - this is confirmed by his last PCP note when it was reduced although the prescription says both take 4 tablets twice a day and (2x40mg) twice a day. Last picked up Entresto 09/2019 but he insists he is taking this and his will bring in his prescription on Sunday (confirmed with his pharmacy September was the last time he picked this up) Spironolactone 09/2019 - now admits he is not taking this. Confirmed with pharmacy additional script sent in Nov 2019 but never filled but never filled. Discussed medications extensively with patient and his who will bring in all his medications on Sunday. Review of Systems Review of Systems: All systems reviewed & are unremarkable except as noted in HPI & below Physical Exam Constitutional: well developed and + morbidly obese; no acute distress Eyes: + anicteric sclerae; normal pupil size Respiratory: Auscultation: + diminished lung sounds (bibasal) Cardiovascular: Rate/Rhythm: regular rate and regular rhythm Heart Sounds: no murmur (limited by body habitus) Extremities: normal capillary refill and + pedal edema (trace pitting b/l equal pre-tibial); no calf tenderness Gastrointestinal (Abdomen): normal bowel sounds, soft, nontender, no hepatosplenomegaly Musculoskeletal: no cyanosis or clubbing, extremities motor strength 5/5 Skin: no rashes, warm and dry Neurologic: moves all extremities and awake; not confused Psychiatric: A+Ox3, euthymic affect Results & Data Results & Data ([facility]) Vital Signs (Past 12 Hours) Vital Signs Temp Pulse Resp BP BP Pulse Ox 08/20/20 22:25 106/74 08/20/20 22:14 36.5 C 95 H 18 72/54 L 93 08/20/20 20:44 99/76 L PG Care Time/CCT Total # of Minutes Spent Total Time Spent with Patient: Total time spent is greater than 50% in coordination of care (as documented) at patient's floor/unit and/or counseling patient: Coding Level of Care Code 91482 Subseq Hosp Care Lvl 2 Diagnoses SOB (shortness of breath) R06.02 Acute kidney injury N17.9 Diabetes mellitus type II, uncontrolled E11.65 Glycemic state: with hyperglycemia NICM (nonischemic cardiomyopathy) I42.8 Hypertension I10 Hypertension type: unspecified (1) Diabetes mellitus type II, uncontrolled Glycemic state: with hyperglycemia Qualified Code(s): E11.65 - Type 2 diabetes mellitus with hyperglycemia (2) Hypertension Hypertension type: unspecified Qualified Code(s): I10 - Essential (primary) hypertension
--- NOTE | 2020-08-21 10:10 | Pharmacy Report ---
Pharmacy Glycemic Short Note 2 - Date of Service August 21, 2020 - Glycemic Short BSG Results (Last 24 hours): 08/20/20 08/20/20 08/20/20 11:50 12:25 17:19 Glucose 270 H POC Glucose 241 H 149 H 08/20/20 08/21/20 08/21/20 20:33 06:10 08:25 Glucose 215 H POC Glucose 158 H 195 H OUTPATIENT ANTIDIABETIC REGIMEN: * Not clear- [facility] Endocrinology. * Trulicity * Premixed insulin vs Lantus? * A1c = 7.9% on 09/12/19 {outdated} * Repeat A1c ordered for 08/21/20 AM ASSESSMENT: 08/21/20 * Patent's BSGs yesterday were [phone] mg/dL. Patient received a total of 102 units of insulin with 40 units of basal and 62 units of bolus. * Fasting BSG today was 195 mg/dL. * For basal insulin, will continue current regimen. Fasting has improved by about 50 mg/dL. Patient also suffering from MIKEY so aware that insulin may accumulate. * Novolog appears to be reasonable. May loosen later in the day depending on trends of BSG. 08/20/20 * 44yo T2DM male with unknown degree of outpatient control. A1c ordered for tomorrow AM * All BSGs above goal range since admission. On a unit/kg basis current SQ basal bolus insulin regimen currently ordered is quite conservative. Will increase dosing accordingly. Will dose insulin based off of adjusted body weight (instead of total body weight) since BMI well over 35 kg/m2 * Pt would benefit from an inpatient DM Educator consult. PLAN FOR INPATIENT GLYCEMIC CONTROL: * Basal insulin * continue Lantus to 20 units SQ BID * Bolus insulin: tighten CF/CF * NovoLog per scale ACHS or Q6hrs while NPO * Goal Range: Low 100 mg/dL - High 140 mg/dL * Correction Factor: 15 mg/dL/unit * Nutritional / Prandial insulin per carb ratio of 1 unit per 5 grams CHO consumed PLAN FOR DISCHARGE: * A1c = Pending for 08/21/20 * Goal A1c = <8 % based on age and comorbidities * Will update recs once A1c starts * Unsure if patient has ever tried metformin- would be a good option at [place] for weight loss if patient can tolerate it. * Support Patient Self-Management * Healthy Lifestyle (diet, exercise, and smoking cessation) * Disease self-management (SMBG) * Prevention of complications (BP, Lipid goals, Immunizations) * Consider outpatient Diabetes Self-Management Education & Support
[2020-08-21 17:33] LABS: BUN Creatinine Ratio 17.5 (10-20); Calcium 9.1 mg/dl (8.5-10.1); Creatinine Clr Calc Pharmacy 79.8 ml/min; Est GFR (African American) 53.3 ml/min; Potassium 3.9 mmol/L (3.5-5.1)
[2020-08-22] MEDS: INSULIN ASPART 100 UNITS/ML 3 ML PEN SC SCH ×4 (08:09→21:19)
[2020-08-22] MEDS: INSULIN GLARGINE SOLOSTAR 100 UNITS/ML 3 ML PEN SC SCH ×2 (08:10→21:18)
[2020-08-22] MEDS: ATORVASTATIN 10 MG TAB PO SCH (08:13)
[2020-08-22] MEDS: NYSTATIN OINT 15 GM TUBE EXT SCH ×2 (08:14→21:16)
[2020-08-22] MEDS: ASPIRIN 81 MG ECTAB PO SCH (08:14)
[2020-08-22 08:58] LABS: BUN Creatinine Ratio 25.1 (10-20); Calcium 8.7 mg/dl (8.5-10.1); Creatinine Clr Calc Pharmacy 135.3 ml/min; Est GFR (African American) 101.4 ml/min; Est GFR (Non-African American) 87.5 ml/min; Potassium 4.2 mmol/L (3.5-5.1)
[2020-08-22] MEDS: TORSEMIDE 10 MG TAB PO SCH ×2 (09:17→17:59)
--- NOTE | 2020-08-22 09:18 | Hospitalist Progress Note ---
Date of Service August 22, 2020 Assessment & Plan (1) SOB (shortness of breath): 44yo male with multiple medical problems, history of CHF due to NICM, morbid obesity, MARIELENA presenting with two days of SOB and BRISCOE. Concern for volume overload initially however placing him back on his usual meds caused MIKEY - see subjective. -transfer to med/tele -Lasix and Torsemide given in ER -This caused hypovolemia with increased Cr, low BNP, hypotension on his "usual" doses of medication (see below under NICM) (2) Acute kidney injury: Now resolved. Cr increased from 0.97 to 2.83, now back to 1.04 after holding all his anti- hypertensives yesterday. Multiple medications confused on admission (corrected). Restart his diuretics with torsemide 40mg PO BID -> may need 80mg PO BID on discharge given shortness of breath on admission after reducing this the previ ous week (3) Diabetes mellitus type II, uncontrolled: Chronic -Goal blood sugar 100 - 140 -Appreciate pharmacy for ongoing glycemic control (4) NICM (nonischemic cardiomyopathy): NICM, AICD in place -Continue Metoprolol 100mg po BID -Hold Entresto (unclear how he was taking this at home as last prescription from 09/2019, to bring his prescriptions tomorrow) -Hold Spironolactone (was not taking this at home) -Restart Torsemide -Hold Isosorbide Mononitrate (5) Hypertension: Hypotension resolved with holding his anti-hypertensives yesterday. Now restarting will continue to monitor -Continue medications as above Code - Full Dispo - stable to transfer to med/tele Admission and Anticipated Discharge Date Admission Date: August 21, 2020 Subjective Feels he is at his baseline shortness of breath and leg swelling. No chest pain. Review of Systems Review of Systems: All systems reviewed & are unremarkable except as noted in HPI & below Physical Exam Constitutional: well developed and + morbidly obese; no acute distress Respiratory: normal respiratory effort; no respiratory distress Ausc ultation: + diminished lung sounds (bibasal); no rales and no wheezes Cardiovascular: Rate/Rhythm: regular rate and regular rhythm Heart Sounds: no murmur (limited by body habitus) Extremities: + pedal edema (trace pitting b/l equal pre-tibial); no calf tenderness Musculoskeletal: no cyanosis or clubbing, extremities motor strength 5/5 Skin: no rashes, warm and dry Neurologic: moves all extremities and awake; not confused Psychiatric: A+Ox3, euthymic affect Results & Data Results & Data ([facility]) Vital Signs (Past 12 Hours) Vital Signs Temp Pulse Pulse Resp BP BP Pulse Ox 08/22/20 07:28 36.8 C 79 20 119/84 94 08/22/20 04:25 36.4 C 75 21 141/86 H 94 08/21/20 23:58 36.6 C 86 18 108/86 95 08/21/20 22:20 92 H PG Care Time/CCT Total # of Minutes Spent Total Time Spent with Patient: Total time spent is greater than 50% in coordination of care (as documented) at patient's floor/unit and/or counseling patient: Coding Level of Care Code 02640 Subseq Hosp Care Lvl 2 Diagnoses SOB (shortness of breath) R06.02 Acute kidney injury N17.9 Diabetes mellitus type II, uncontrolled E11.65 Glycemic state: with hyperglycemia NICM (nonischemic cardiomyopathy) I42.8 Hypertension I10 Hypertension type: unspecified (1) Diabetes mellitus type II, uncontrolled Glycemic state: with hyperglycemia Qualified Code(s): E11.65 - Type 2 diabetes mellitus with hyperglycemia (2) Hypertension Hypertension type: unspecified Qualified Code(s): I10 - Essential (primary) hypertension
[2020-08-22] MEDS ORDERED: APIXABAN 5 MG TABLET PO ONE (09:45)
[2020-08-22] MEDS ORDERED: METOPROLOL SUCC 50MG EXT REL TAB PO ONE (09:45)
--- NOTE | 2020-08-22 11:15 | Pharmacy Report ---
Pharmacy Glycemic Short Note 2 - Date of Service August 22, 2020 - Glycemic Short BSG Results (Last 24 hours): 08/21/20 08/21/20 08/21/20 16:43 16:45 20:52 Glucose 198 H POC Glucose 216 H 164 H 08/22/20 08/22/20 07:27 08:14 Glucose 160 H POC Glucose 169 H OUTPATIENT ANTIDIABETIC REGIMEN: * Not clear- patient follows with both [facility] and [facility] [place]. * Trulicity * Premixed insulin vs Lantus? * A1c = 7.9% on 09/12/19 {outdated} * Repeat A1c ordered for 08/21/20 AM ASSESSMENT: 08/22/20 * Patent's BSGs yesterday were [phone] mg/dL. Patient received a total of 194 units of insulin with 40 units of basal and 54 units of bolus. * Fasting BSG today was 169 mg/dL. * For basal insulin, will continue current regimen with a higher dose available for BSG > 140 mg/dL. Fasting has improved by about 30 mg/dL. MIKEY appears to be resolving. * Will tighten Novolog slightly to lower BSGs below 200 mg/dL. 08/21/20 * Patent's BSGs yesterday were [phone] mg/dL. Patient received a total of 102 units of insulin with 40 units of basal and 62 units of bolus. * Fasting BSG today was 195 mg/dL. * For basal insulin, will continue current regimen. Fasting has improved by about 50 mg/dL. Patient also suffering from MIKEY so aware that insulin may accumulate. * Novolog appears to be reasonable. May loosen later in the day depending on trends of BSG. 08/20/20 * 44yo T2DM male with unknown degree of outpatient control. A1c ordered for tomorrow AM * All BSGs above goal range since admission. On a unit/kg basis current SQ basal bolus insulin regimen currently ordered is quite conservative. Will increase dosing accordingly. Will dose insulin based off of adjusted body weight (instead of total body weight) since BMI well over 35 kg/m2 * Pt would benefit from an inpatient DM Educator consult. PLAN FOR INPATIENT GLYCEMIC CONTROL: * Basal insulin * continue Lantus to 20 units SQ BID (25 units if BSG > 140 mg/dL) * Bolus insulin: tighten CF/CF * NovoLog per scale ACHS or Q6hrs while NPO * Goal Range: Low 100 mg/dL - High 140 mg/dL * Correction Factor: 12 mg/dL/unit * Nutritional / Prandial insulin per carb ratio of 1 unit per 4 grams CHO consumed PLAN FOR DISCHARGE: * A1c = Pending for 08/21/20 * Goal A1c = <8 % based on age and comorbidities * Will update recs once A1c starts * Unsure if patient has ever tried metformin- would be a good option at [place] for weight loss if patient can tolerate it. * Support Patient Self-Management * Healthy Lifestyle (diet, exercise, and smoking cessation) * Disease self-management (SMBG) * Prevention of complications (BP, Lipid goals, Immunizations) * Consider outpatient Diabetes Self-Management Education & Support
[2020-08-22] MEDS: APIXABAN 5 MG TABLET PO SCH (21:16)
[2020-08-22] MEDS: METOPROLOL SUCC 50MG EXT REL TAB PO SCH (21:20)
[2020-08-23 06:58] LABS: BUN Creatinine Ratio 23.6 (10-20); Calcium 8.9 mg/dl (8.5-10.1); Creatinine Clr Calc Pharmacy 112.5 ml/min; Est GFR (African American) 80.4 ml/min; Est GFR (Non-African American) 69.4 ml/min
[2020-08-23] MEDS: NYSTATIN OINT 15 GM TUBE EXT SCH (08:02)
[2020-08-23] MEDS: METOPROLOL SUCC 50MG EXT REL TAB PO SCH (08:03)
[2020-08-23] MEDS: APIXABAN 5 MG TABLET PO SCH (08:03)
[2020-08-23] MEDS: TORSEMIDE 10 MG TAB PO SCH (08:04)
[2020-08-23] MEDS: ATORVASTATIN 10 MG TAB PO SCH (08:04)
[2020-08-23] MEDS: ASPIRIN 81 MG ECTAB PO SCH (08:04)
[2020-08-23] MEDS: ISOSORBIDE MONO EXTENDED REL 60 MG TABCR PO SCH (08:05)
[2020-08-23] MEDS: INSULIN GLARGINE SOLOSTAR 100 UNITS/ML 3 ML PEN SC SCH (08:05)
[2020-08-23] MEDS: INSULIN ASPART 100 UNITS/ML 3 ML PEN SC SCH ×2 (08:06→13:03)
--- NOTE | 2020-08-23 13:17 | Pharmacy Report ---
Pharmacy Glycemic Short Note 2 - Date of Service August 23, 2020 - Glycemic Short BSG Results (Last 24 hours): 08/22/20 08/22/20 08/23/20 16:28 20:47 06:04 Glucose 175 H POC Glucose 203 H 165 H 08/23/20 08/23/20 07:49 11:38 Glucose POC Glucose 174 H 177 H OUTPATIENT ANTIDIABETIC REGIMEN: * Not clear- patient follows with both [facility] and [facility] [place] Endocrinology. * Trulicity * Premixed insulin vs Lantus? * A1c = 7.9% on 09/12/19 {outdated} * Repeat A1c ordered for 08/21/20 AM ASSESSMENT: 08/23/20 * Patent's BSGs yesterday were [phone] mg/dL. Patient received a total of 87 units of insulin with 50 units of basal and 37 units of bolus. * Fasting BSG today was 174 mg/dL. * For basal insulin, will continue current regimen with a higher dose available for BSG > 140 mg/dL. Fasting is remaining stable around 170 mg/dL. MIKEY is resolving. * Will tighten Novolog slightly to lower BSGs below 200 mg/dL. 08/22/20 * Patent's BSGs yesterday were [phone] mg/dL. Patient received a total of 94 units of insulin with 40 units of basal and 54 units of bolus. * Fasting BSG today was 169 mg/dL. * For basal insulin, will continue current regimen with a higher dose available for BSG > 140 mg/dL. Fasting has improved by about 30 mg/dL. MIKEY appears to be resolving. * Will tighten Novolog slightly to lower BSGs below 200 mg/dL. 08/21/20 * Patent's BSGs yesterday were [phone] mg/dL. Patient received a total of 102 units of insulin with 40 units of basal and 62 units of bolus. * Fasting BSG today was 195 mg/dL. * For basal insulin, will continue current regimen. Fasting has improved by about 50 mg/dL. Patient also suffering from MIKEY so aware that insulin may accumulate. * Novolog appears to be reasonable. May loosen later in the day depending on trends of BSG. 08/20/20 * 44yo T2DM male with unknown degree of outpatient control. A1c ordered for tomorrow AM * All BSGs above goal range since admission. On a unit/kg basis current SQ basal bolus insulin regimen currently ordered is quite conservative. Will increase dosing accordingly. Will dose insulin based off of adjusted body weight (instead of total body weight) since BMI well over 35 kg/m2 * Pt would benefit from an inpatient DM Educator consult. PLAN FOR INPATIENT GLYCEMIC CONTROL: * Basal insulin * continue Lantus 25 units SQ BID (30 units if BSG > 140 mg/dL) * Bolus insulin: tighten CF/CF * NovoLog per scale ACHS or Q6hrs while NPO * Goal Range: Low 100 mg/dL - High 140 mg/dL * Correction Factor: 15mg/dL/unit * Nutritional / Prandial insulin per carb ratio of 1 unit per 4 grams CHO consumed PLAN FOR DISCHARGE: * A1c = Pending for 08/21/20 * Goal A1c = <8 % based on age and comorbidities * Will update recs once A1c starts * Unsure if patient has ever tried metformin- would be a good option at [place] for weight loss if patient can tolerate it. * Support Patient Self-Management * Healthy Lifestyle (diet, exercise, and smoking cessation) * Disease self-management (SMBG) * Prevention of complications (BP, Lipid goals, Immunizations) * Consider outpatient Diabetes Self-Management Education & Support
--- NOTE | 2020-08-23 16:23 | Discharge Summary ---
Date of Service date of admission - August 19, 2020 date of discharge - August 23, 2020 Admission HPI Per Admitting Provider Alok Huff is a 44yo male with multiple medical problems including chronic systolic CHF 2nd to nonischemic cardiomyopathy presenting with dyspnea with minimal exertion, lightheadedness ongoing for two days. He denies cough, chest pain, palpitations, abdominal pain, nausea, vomiting, diarrhea or constipation. No additional complaints. Inhalers do not help. Afebrile, HD stable in ER. NO respiratory distress. Adequate oxygenation on patient's baseline 6L of O2 by [place] ER Course: Lasix, Insulin, Xopenex, Torsemide Principal Diagnosis Acute kidney injury Chronic systolic CHF Discharge Exam general - morbidly obese, A/O x 3, NAD mouth - MMM, no lesions heart - RRR, s1 s2, no murmur lungs - CTA b/l abd - soft NT ND BS+ ext - no edema, pulses 2+ b/l Discharge Data Allergies Allergy/AdvReac Type Severity Reaction Status Date / Time ceftriaxone Allergy Severe SHORTNESS Verified 08/18/20 18:13 OF BREATH lidocaine Allergy Severe SHORTNESS Verified 08/18/20 18:13 OF BREATH, diaphoretic, hives procaine Allergy Severe SHORTNESS Verified 08/18/20 18:13 OF BREATH, diaphoretic, hives amoxicillin Allergy Intermediate HIVES/FACIAL Verified 08/18/20 18:13 SWELLING clavulanic acid Allergy Intermediate HIVES/FACIAL Verified 08/18/20 18:13 SWELLING lisinopril Allergy Intermediate HIVES Verified 08/18/20 18:13 acetaminophen AdvReac Mild NAUSEA Verified 08/18/20 18:13 albuterol AdvReac Mild proair Verified 08/18/20 18:13 "trouble taking breaths" Fish Containing Products AdvReac Unknown Verified 08/18/20 18:13 Procedures Performed 2-step oxygen test - no need for ambulatory O2 Diabetes Follow up Diabetes Follow-up Needed for HgbA1c >9% Hospital Course (1) Acute kidney injury: Peak Cr 2.8. Cr at admission was 1.4. Cr at discharge was 1.2. Likely combination of over-diuresis and marked elevation of BPs at time of admission. Holding his diuretics and entresto along with time helped resolved his MIKEY. (2) SOB (shortness of breath): Exact etiology uncertain. His dyspnea was NOT due to decompensated CHF as his creatinine immediately kajal with diuretics given in the ER. Perhaps he was feeling weak and dyspneic from volume depletion? He had no evidence of pneumonia, and COVID testing was negative. His O2 sats remained stable his entire stay. On day of discharge a 2-step oxygen ambulatory test showed that he did NOT need home O2. However, he will continue NC O2 at bedtime for MARIELENA. (3) Diabetes mellitus type II, uncontrolled: HbA1C 12.5% His usual DM regimen will be continued at discharge. He was seen by the life educator during the stay for DM counseling. (4) Morbid obesity with BMI of 50.0-59.9, adult: BMI 53 (5) Nonischemic cardiomyopathy: EF 25-30% Remains on metoprolol succinate, entresto, and aldactone. His aldactone dose was reduced to 50mg qam while here due to low-normal BPs. His torsemide dose was left unchanged at 80mg BID (6) Noncompliance: History of numerous hospital admissions for HTN urgency or emergency, deco mpensated CHF, and acute hypoxic respiratory failure. It is unclear if he had been taking his medications before admission as directed. (7) Hypertension: In the 36-48 hours leading up to discharge the patient's BPs were low- normal. Therefore, his imdur was stopped and his aldactone was changed from twice daily dosing to once daily. (8) AICD (automatic cardioverter/defibrillator) present: No recent discharges or device issues. (9) Obstructive sleep apnea: Continue [place] O2 at bedtime for such. Could not tolerate NIPPV in the past. (10) Chronic respiratory failure: Previously on [id number]/continuous NC O2. However, during this stay, he had no O2 requirement at rest. Formal 2-step ambulatory oxygen test was NORMAL. He will continue his NC O2 at bedtime as previous. Home Health Attestation I certify that this patient is under my care and that I, or a physicians promotional advertising assistant working with me, had a face to-face encounter that meets the home health [id number] encounter requirements with this patient. The encounter with the patient was in whole, or in part, for the following medical condition, which is the primary reason for home health care (list medical condition): I certify that, based on my findings, the following services are medically necessary home health services: My clinical findings support the need for the above services because: Further, I certify that my clinical findings support that this patient is homebound (i.e. absences from home require considerable and taxing effort and are for medical reasons or jew services or infrequently or of short duration when for other reasons) because: Certification for Home Health Services: Based on the above findings, I certify that this patient is confined to the home and needs intermittent assisted care, physical therapy and/or speech therapy or continues to need occupational therapy. The patient is under my care, and I have initiated the establishment of the plan of care. This patient will be followed by a physician who will periodically review the plan of care. Total Time Total Time Spent Total Time Spent (In Minutes): 35 Discharge Plan Discharge Items Patient Disposition: Home - Home Health Services Reason For Visit: Dizziness Discharge Diagnosis: 1. dizziness - due to low blood pressure? - resolved 2. chronic congestive heart failure Condition on Discharge: Good Activity: Resume your previous activity Non-emergency contact: Primary Care Provider and [employer] Machine Operator Call non-emergency contact if: you have any medication questions, your symptoms worsen and you have a fever Follow-up/Referrals: Richa Burr CRNP [Primary Care Provider] - 09/03/20 2:00 pm (1-2 weeks ) Shon Hernandez DO [R[employer]et [employer] Machine Operator] - 08/30/20 2:00 pm (5 days (or, any of the cardiology providers in the CHF clinic) ) Diet: Carb Consistent or DM2 and Low Sodium (2gm) Fluids: 2000ml (8 cups) Addtl Attending Provider Instructions: Mr Huff - You were admitted to the hospital because of dizziness and shortness of breath. It appears that the dizziness was likely due to your blood pressure. The cause of your shortness of breath at time of admission was not fully certain as your congestive heart failure appeared to be under good control. Either way your dizziness and breathing issues have improved while here. Over the course of your stay we have noted very low blood pressures at times. We recommend the following changes -- 1. STOP your isosorbide mononitrate blood pressure medication. 2. LOWER your spironolactone from twice a day to once a day dosing (just take 50mg total in the morning; do NOT take the afternoon dose). 3. Keep all of your other medications the same for now. 4. We checked your oxygen levels on day of discharge. Your oxygen levels with walking stayed 90% or greater the entire time. You do not need to use oxygen while sitting or walking. However, continue the oxygen WITH YOUR SLEEP as previous. 5. Check your weight EVERY MORNING when you wake up. Write these weights down in a notebook so you know if you are gaining fluid weight. Your weight today, 08/23/20, is 352 pounds. Follow-up - see separate section Return to [facility] if - * you are having dizziness or lightheadedness * you are developing worsening shortness of breath * you have chest pains * you feel like your heart is racing * any other concerns Addtl [employer] Consultant Provider Instructions: CONGESTIVE HEART FAILURE INSTRUCTIONS -- Call 911 and go to the Emergency Room if: * You have tightness or pain in your chest that does not go away with rest or Nitroglycerin * You are very short of breath even with rest Call your doctor if any of the following symptoms or problems start or get worse: * Shortness of breath or difficulty breathing * Wake up at night short of breath * Chest pain * Cough * Swelling of your hands, fee, or legs * More fatigued or tired with your normal activity * Palpitations - sudden fast heart beats WEIGHT * Weigh yourself every morning after using the bathroom. * Use the same scale. * Wear the same amount of clothing. * Write your weight down on your chart. * Call your doctor if you gain more than 3 pounds in 1-2 days. This is usually the first sign that you are gaining fluid weight. Do not wait to call your doctor if your weight is going up quickly -- call right away.* MEDICATIONS * Use this discharge instruction sheet for instructions. * Take your medications at the time your doctor ordered. * Do not skip a dose of your medicines. * If you miss a dose of medicine, take as soon as possible, but DO NOT DOUBLE A DOSE. * Read your medicine information when you get home. * Know all of the side effects of your medicine. * Call your doctor's office if you have any side effects. * Be sure all of your doctors know what medicine and herbs you take (including cold, flu, and herbal medicine). * Pain Medicine: If you do not get relief from your pain, please call your doctor for help. Take the following with you to your follow-up doctor appointments: * Weight Chart * Medication List * List of questions Do not drink excessive alcohol, beer or wine. Pending Studies at Discharge: No Stand-Alone Forms: My [facility], Smoking Cessation Medications and DC Order Prescriptions: Continued Trulicity 1.5 mg/0.5 mL pen injector 1.5 mg SUBCUT WK Qty: 2 RF: 5 (DME) OneTouch Verio test strips Strip See Rx Instructions .ROUTE .MEDSUPPLY Qty: 200 RF: 3 (DME) blood-glucose meter [OneTouch Verio Flex meter] Misc See Rx Instructions .ROUTE .MEDSUPPLY Qty: 1 RF: 0 Eliquis 5 mg tablet 5 mg PO BID RF: 0 nystatin 100,000 unit/gram ointment 1 applic topical BID Qty: 15 RF: 0 (DME) Oxygen Home Liters Per Minute See Rx Instructions .ROUTE .MEDSUPPLY Qty: 1 RF: 0 Entresto 97-103 mg tablet 1 tab PO BID RF: 0 atorvastatin 10 mg tablet 10 mg PO DAILY RF: 0 metoprolol succinate 100 mg tablet extended release 24 hr 100 mg PO BID Qty: 60 RF: 5 aspirin [Aspirin Low Dose] 81 mg tablet,delayed release (DR/EC) 81 mg PO DAILY RF: 0 nitroglycerin [Nitrostat] 0.4 mg tablet, sublingual 0.4 mg sublingual UD PRN (Reason: Chest Pain) RF: 0 cholecalciferol (vitamin D3) [Vitamin D3] 50 mcg (2,000 unit) Tablet 50 mcg PO BID RF: 0 torsemide 20 mg tablet 80 mg PO BID RF: 0 Changed spironolactone [Aldactone] 25 mg tablet 50 mg PO QAM Qty: 30 RF: 0 Discontinued isosorbide mononitrate 30 mg tablet extended release 24 hr 60 mg PO QAM RF: 0 warfarin 5 mg tablet 5 mg PO QPM RF: 0 Discharge Orders: Discharge Order (Routine); Ordered 08/23/20 Ordered By: Migue Talamantes/Other Patient Handouts: A1C, High Blood Sugar (Hyperglycemia), Hypoglycemia (Low Blood Sugar), Managing Type 2 Diabetes Admission Data Admit Date/Time: 08/19/20 00:58 Attending Provider: Migue Packer Admit Provider: Migue Laguna Primary Care Provider: Richa Burr Other Providers: Ciarra Burr Other Interventions: Discharge Summary Assessment (RN) Last Done: 08/23/20 16:05 Coding Level of Care Code D/C DAY MANAGEMENT >30 MINS Diagnoses Acute kidney injury N17.9 Diabetes mellitus type II, uncontrolled E11.65 Glycemic state: with hyperglycemia Morbid obesity with BMI of 50.0-59.9, adult E66.01; Z68.43 Nonischemic cardiomyopathy I42.8 Noncompliance Z91.19 Hypertension I10 Hypertension type: unspecified AICD (automatic cardioverter/defibrillator) present Z95.810 Obstructive sleep apnea G47.33 Chronic respiratory failure J96.10 SOB (shortness of breath) R06.02
== END 2020-08-23 17:02 | disposition home health service (06) ==
LOC: ED 18:01 → SUATTDRO 08-19 00:58 → 3W 08-19 00:58 → INTOOBSV 08-19 00:58 → 3W 08-19 02:08 → SUATTDRO 08-21 08:10 → 2E 08-21 10:00 → 2W 08-22 09:17
DX: J96.10 Chronic respiratory failure, unspecified whether with hypoxia or hypercapnia; Z20.828 Contact with and (suspected) exposure to other viral communicable diseases; Z79.899 Other long term (current) drug therapy; E55.9 Vitamin D deficiency, unspecified; R42 Dizziness and giddiness; E11.65 Type 2 diabetes mellitus with hyperglycemia; K76.0 Fatty (change of) liver, not elsewhere classified; I42.8 Other cardiomyopathies; E66.01 Morbid (severe) obesity due to excess calories; Z88.8 Allergy status to other drugs, medicaments and biological substances; I50.9 Heart failure, unspecified; G47.33 Obstructive sleep apnea (adult) (pediatric); Z79.01 Long term (current) use of anticoagulants; Z91.018 Allergy to other foods; Z88.1 Allergy status to other antibiotic agents; Z79.82 Long term (current) use of aspirin; I11.0 Hypertensive heart disease with heart failure; N17.9 Acute kidney failure, unspecified; Z87.891 Personal history of nicotine dependence

== ENCOUNTER 2020-09-07 22:45 | Observation (INO) ==
--- NOTE | 2020-09-07 23:11 | Emergency Department Note ---
ED Visit Note Physician Evaluation Note: I have personally evaluated and examined this patient. I agree with assessment and plan of Vick Banuelos PA-C. Acute respiratory failure secondary to hypertensive congestive heart failure. Given IV ativan to calm patient so that he could tolerate BIPAP which worked quite well. IV lasix already ordered and h ospitalist consulted. Lenny Moya MD : Acute respiratory failure Qualifiers: Respiratory failure complication: unspecified whether with hypoxia or hypercapnia Qualified Code(s): J96.00 - Acute respiratory failure, unspecified whether with hypoxia or hypercapnia CHF exacerbation Qualifiers: Heart failure type: unspecified Qualified Code(s): I50.9 - Heart failure, unspecified
[2020-09-07] MEDS ORDERED: LORazepam 1 MG/2 ML VIAL IV STA (23:13)
[2020-09-07] MEDS ORDERED: LORazepam 2 MG/4 ML VIAL ONE (23:15)
[2020-09-07 23:33] LABS: Basophils # (auto) 0.01 K/uL (0-0.2); Basophils % (auto) 0.1 %; Eosinophils # (auto) 0.09 K/uL (0-0.5); Eosinophils % (auto) 0.9 %; Hemoglobin 14.6 g/dL (14.0-18.0); Immature Granulocytes # (auto) 0.03 K/uL (0.00-0.02); Immature Granulocytes % (auto) 0.3 %; Lymphocytes % (auto) 19.8 %; Mean Corpuscular Hemoglobin 29.1 pg (25-34); Mean Corpuscular Volume 85.8 fL (80-100); Mean Platelet Volume 10.6 fL (7.4-10.4); Monocytes # (auto) 0.51 K/uL (0.11-0.59); Neutrophils # (auto) 7.46 K/uL (1.4-6.5); Neutrophils % (auto) 73.9 %; Platelet Count 155 K/uL (130-400); Red Blood Count 5.01 M/uL (4.7-6.1)
[2020-09-07] MEDS ORDERED: FUROSEMIDE 40 MG/4 ML VIAL IV STA (23:33)
[2020-09-07 23:50] LABS: Partial Thromboplastin Time 25.4 Seconds (21.0-31.0); Prothrombin Time 10.1 Seconds (9.0-12.0)
[2020-09-07 23:53] LABS: Alanine Aminotransferase 47 U/L (12-78); Albumin Level 3.3 gm/dl (3.4-5.0); Aspartate Aminotransferase 46 U/L (15-37); BUN Creatinine Ratio 10.9 (10-20); Blood Urea Nitrogen 11 mg/dl (7-18); C Reactive Protein 1.02 mg/dl (0-0.29); Carbon Dioxide 23 mmol/L (21-32); Chloride 110 mmol/L (98-107); Est GFR (African American) 103.9 ml/min; Est GFR (Non-African American) 89.6 ml/min; Glucose 264 mg/dl (70-99); Lipase 142 U/L (73-393); Magnesium 1.5 mg/dl (1.8-2.4); Potassium 3.6 mmol/L (3.5-5.1); Sodium 140 mmol/L (136-145)
[2020-09-08 00:01] LABS: Albumin Globulin Ratio 0.8 (0.9-2); Alkaline Phosphatase 94 U/L (45-117); Bilirubin,Total 0.6 mg/dl (0.2-1); Globulin 4.1 gm/dl (2.5-4.0); NT Pro B Type Natriuretic Pept 2820 pg/ml (0-450); Total Protein 7.4 gm/dl (6.4-8.2); Troponin I 0.027 ng/ml (0-0.045)
[2020-09-08 00:03] LABS: iSTAT Arterial Blood Gas HCO3 24 meg/L (19-24); iSTAT Arterial Blood Gas pCO2 49 mmHg (35-46); iSTAT Arterial Blood Gas pO2 344 mmHg (80-95); iSTAT Carbon Dioxide 26 mmol/L (24-31); iSTAT Hematocrit 44 % (42-52); iSTAT Potassium 3.6 mmol/L (3.3-5.0); iSTAT Sodium 142 mmol/L (135-144)
[2020-09-08 00:19] LABS: Lyme Ab IgG w/WB Rflx Negative (Negative); Lyme Ab IgM w/WB Rflx Negative (Negative)
--- NOTE | 2020-09-08 01:17 | History & Physical Report ---
Date of Service September 08, 2020 Assessment & Plan (1) Acute on chronic heart failure with reduced ejection fraction and diastolic dysfunction: Plan: Alok Huff is a 44y/o M with complex past medical history who presents for persistent worsening of shortness of breath over the last two days. Acute on chronic heart failure with reduced ejection fraction: -Given similar presentation earlier this month, concern for medication/dietary noncompliance versus continued worsening of CHF -CXR demonstrating worsening bilateral congestion with effusions -BNP elevated, as compared to earlier this month with a negative BNP likely indicating acute CHF exacerbation -Received 80 of IV Lasix in ED, will continue to provide 40 mg IV Lasix twice daily -Given patient's endorsed holding of torsemide, concern about the level of diuretics requires -Consideration of utilization of Bumex versus Lasix drip if no improvement in CHF picture Nonischemic cardiomyopathy: -Continue metoprolol, Entresto, spironolactone, isosorbide Diabetes: -Persistently uncontrolled type 2 diabetes, with hyperglycemia on presentation to ED -We will transition home regimen to sliding scale insulin while in hospital to determine extent of insulin usage needed to control blood sugars -BSG's ACHS -Carb consistent diet Diet: Heart healthy, carb consistent CODE STATUS: Full code (2) NICM (nonischemic cardiomyopathy): (3) Hypertension: History of Present Illness Primary Care Provider: CM Hitchcock Alok Huff is a 44y/o M with complex past medical history who presents for persistent worsening of shortness of breath over the last two days. Of note, patient was recently discharged from [facility] earlier this month for similar episode. Over the last two days he has increasing shortness of breath, and feeling of winded with minimal exertion, has not had the same lightheadedness that he was having previously. Since discharge he states he has been sticking to the salt restricted diet, and attempting to control the amount of fluid he takes in. Has not been utilizing the torsemide over this time, as it will frequently make him have to urinate too much and with him getting winded so quickly he tries to avoid extra trips. Allergies Allergy/AdvReac Type Severity Reaction Status Date / Time ceftriaxone Allergy Severe SHORTNESS Verified 09/07/20 23:21 OF BREATH lidocaine Allergy Severe SHORTNESS Verified 09/07/20 23:21 OF BREATH, diaphoretic, hives procaine Allergy Severe SHORTNESS Verified 09/07/20 23:21 OF BREATH, diaphoretic, hives amoxicillin Allergy Intermediate HIVES/FACIAL Verified 09/07/20 23:21 SWELLING clavulanic acid Allergy Intermediate HIVES/FACIAL Verified 09/07/20 23:21 SWELLING lisinopril Allergy Intermediate HIVES Verified 09/07/20 23:21 acetaminophen AdvReac Mild NAUSEA Verified 09/07/20 23:21 albuterol AdvReac Mild proair Verified 09/07/20 23:21 "trouble taking breaths" Fish Containing Products AdvReac Unknown Verified 09/07/20 23:21 Home Medications Medication Instructions Recorded Confirmed Type nitroglycerin 0.4 mg sublingual 0.4 mg SUBLINGUAL UD PRN 04/24/19 09/07/20 History tablet (Nitrostat) cholecalciferol (vitamin D3) 50 50 mcg PO BID 10/04/19 09/07/20 History mcg (2,000 unit) tablet (Vitamin D3) dulaglutide 1.5 mg/0.5 mL 1.5 mg SUBCUT WK #2 ml 04/21/20 09/07/20 Rx subcutaneous pen injector (Trulicity) metoprolol succinate 100 mg 100 mg PO BID #60 tab 06/30/20 09/07/20 Rx tablet,extended release 24 hr blood sugar diagnostic (OneTouch #200 ea 07/07/20 Rx Verio test strips) aspirin 81 mg tablet,delayed 81 mg PO DAILY tab 07/10/20 09/07/20 History release (Aspirin Low Dose) OneTouch Verio Flex meter #1 ea NS 07/27/20 Rx (blood-glucose meter) Oxygen Home #1 ea 08/10/20 08/10/20 Rx apixaban 5 mg tablet (Eliquis) 5 mg PO BID tab 08/10/20 09/07/20 History atorvastatin 10 mg tablet 10 mg PO DAILY 08/10/20 09/07/20 History nystatin 100,000 unit/gram topical 1 applic TOPICAL BID #15 g 08/10/20 09/07/20 Rx ointment sacubitril 97 mg-valsartan 103 mg 1 tab PO BID 08/10/20 09/07/20 History tablet (Entresto) torsemide 20 mg tablet 80 mg PO BID 08/18/20 08/18/20 History spironolactone 25 mg tablet 50 mg PO QAM #30 tab 08/23/20 08/18/20 Rx (Aldactone) Past Med/Surg History Medical History Cellulitis of neck Chronic respiratory failure Dilatation of thoracic aorta Fatty liver Hearing loss of both ears Hypoxia Iliac aneurysm Left-sided weakness Lung nodule NICM (nonischemic cardiomyopathy) Pt admitted for elective ICD. Underwent procedure without any complications monitored over night and discharged home. Obstructive sleep apnea SOB (shortness of breath) Umbilical hernia Vitamin D insufficiency Previously deficient, taking Vit D supplementation Surgical History History of carpal tunnel surgery History of cholecystectomy S/P tonsillectomy Family History Father , age 57 of an [place]. Heart disease Myocardial infarction Mother , age 67 of a ruptured neck vessel Sudden Other Depression Lung disease No pertinent family history Denies family history of Ovarian cancer Prostate cancer Breast cancer Colorectal cancer Social History Smoking Status: Former smoker Age Started Using Tobacco: 14; Age Quit Using Tobacco: 18; Cigarettes Per Day: 40-50; Second Hand Exposure: No; Do You Dip or Chew Tobacco: No; Hx Alcohol Use: Yes Alcohol type: other Hx Substance Use: No Preferred Language: Vincentian Communication Ability: Effective Visual Impairment: No Limitations Hearing Ability: Normal Manager It Training Required: No Beliefs That Will Affect Care: None marital status: Current Living Situation: Spouse current occupational status: unemployed How many Children do You have: 0 Other Information That Helps Us Care for You: No Feels Safe at Home: Yes Safety Concerns: Feels Safe At This Time Childhood Exposure to Second-Hand Smoke: Yes Dental Care, Regularly: Yes Physical Activity Frequency: Does not Exercise Assistive Devices: Oxygen - Continuous Assistive Devices Comment: power chair Review of Systems Review of Systems: All systems reviewed & are unremarkable except as noted in HPI & below Physical Exam Constitutional: + ill appearing, + morbidly obese, cooperative, + in distress and + diaphoretic Eyes: Proptosis with scleral erythema Respiratory: Diminished but coarse breath sounds bilaterally, accentuated in lower lobes; crackles bilaterally, no wheeze; improved on BiPAP, however with continued coarse breath sounds Cardiovascular: Tachycardic; no murmurs, gallops, or rubs; exam somewhat limited secondary to body habitus; peripheral pitting edema to bilateral lower extremities up to knees Gastrointestinal (Abdomen): Abdomen soft, mildly distended, nontender bowel sounds present. Morbidly obese with large pannus Skin: Chronic appearing venous stasis changes to bilateral lower extremities Neurologic: Nonfocal neurologic exam, speech intact, no facial droop, moving all extremities symmetrically on command Psychiatric: Orientation: alert and oriented x 3 Results & Data Results & Data ([facility]) Vital Signs (Past 12 Hours) Vital Signs Temp Pulse Resp BP Pulse Ox 09/07/20 23:18 137 H 36 H 100 09/07/20 23:07 36.8 C 139 H 27 H 228/162 H 97 Laboratory Results 09/08/20 09/08/20 09/08/20 Range/Units 05:56 05:56 05:56 WBC 11.49 H (4.8-10.8) K/uL RBC 4.78 (4.7-6.1) M/uL Hgb 13.7 L (14.0-18.0) g/dL POC Hgb (14.0-18.0) g/dl Hct 41.2 L (42-52) % POC Hct (42-52) % MCV 86.2 (80-100) fL MCH 28.7 (25-34) pg MCHC 33.3 (32-36) g/dL RDW Std Deviation 45.7 (36.4-46.3) fL RDW Coeff of Zoltan 14.7 H (11.5-14.5) % Plt Count 164 (130-400) K/uL MPV 10.5 H (7.4-10.4) fL Immature Gran % (Auto) 0.3 % Neut % (Auto) 73.9 % Lymph % (Auto) 19.5 % Mcpherson % (Auto) 5.9 % Eos % (Auto) 0.3 % Baso % (Auto) 0.1 % Neut # (Auto) 8.50 H (1.4-6.5) K/uL Lymph # (Auto) 2.24 (1.2-3.4) K/uL Mcpherson # (Auto) 0.68 H (0.11-0.59) K/uL Eos # (Auto) 0.03 (0-0.5) K/uL Baso # (Auto) 0.01 (0-0.2) K/uL Immature Gran # (Auto) 0.03 H (0.00-0.02) K/uL ESR (0-15) mm/hr PT (9.0-12.0) Seconds INR (0.9-1.1) APTT (21.0-31.0) Seconds PTT Ratio POC pH (7.35-7.45) POC pCO2 (35-46) mmHg POC pO2 (80-95) mmHg POC HCO3 (19-24) halie/L POC Total CO2 (24-31) mmol/L POC Base Excess (-9-1.8) halie/L POC ABG O2 Sat (90-95) % POC Sodium (135-144) mmol/L Sodium 140 (136-145) mmol/L POC Potassium (3.3-5.0) mmol/L Potassium 4.0 (3.5-5.1) mmol/L Chloride 109 H (98-107) mmol/L Carbon Dioxide 30 (21-32) mmol/L Anion Gap 1.0 L (3-11) BUN 12 (7-18) mg/dl Creatinine 1.05 (0.6-1.4) mg/dl Est Cr Clr Drug Dosing 138.9 Est GFR ( Amer) 100.3 ml/min Est GFR (Non-Af Amer) 86.5 ml/min BUN/Creatinine Ratio 11.3 (10-20) Glucose 235 H (70-99) mg/dl POC Glucose 242 H (70-99) mg/dl Lactate (0.4-2.0) mmol/L Calcium 8.2 L (8.5-10.1) mg/dl Phosphorus 3.4 (2.5-4.9) mg/dl Magnesium 1.8 (1.8-2.4) mg/dl Total Bilirubin 0.8 (0.2-1) mg/dl AST 28 (15-37) U/L ALT 43 (12-78) U/L Alkaline Phosphatase 88 (45-117) U/L Troponin I (0-0.045) ng/ml C-Reactive Protein (0-0.29) mg/dl NT-Pro-B Natriuret Pep (0-450) pg/ml Total Protein 7.1 (6.4-8.2) gm/dl Albumin 3.0 L (3.4-5.0) gm/dl Globulin 4.1 H (2.5-4.0) gm/dl Albumin/Globulin Ratio 0.7 L (0.9-2) Lipase (73-393) U/L Procalcitonin (0-0.5) ng/ml TSH (0.300-4.500) uIu/ml Urine Color Urine Appearance (Clear) Urine pH (4.5-7.5) Ur Specific Blessing (1.000-1.030) Urine Protein (Negative) Urine Glucose (UA) (Negative) Urine Ketones (Negative) Urine Blood (Negative) Urine Nitrite (Negative) Urine Bilirubin (Negative) Urine Urobilinogen (Negative) Ur Leukocyte Esterase (Negative) Urine WBC (Auto) (0-5) /hpf Urine RBC (Auto) (0-4) /hpf U Hyaline Cast (Auto) (0-5) /lpf U Epithel Cells (Auto) (0-5) /lpf Urine Bacteria (Auto) (Negative) Adenovirus (PCR) (NotDetected) B. pertussis DNA (PCR) (NotDetected) B.parapertussis DNA PCR (NotDetected) Lyme Disease IgG Ab (Negative) Lyme Disease IgM Ab (Negative) C. pneumoniae DNA (PCR) (NotDetected) Coronavirus OC43 (PCR) (NotDetected) Coronavirus HKU1 (PCR) (NotDetected) Coronavirus 229E (PCR) (NotDetected) COVID-19 Eval Order SARS-CoV-2 (PCR) (NotDetected) Coronavirus NL63 (PCR) (NotDetected) Human Metapneumovir PCR (NotDetected) Influenza Type A (PCR) (NotDetected) Influenza Type B (PCR) (NotDetected) M. pneumoniae (PCR) (NotDetected) Parainfluenza 1 (PCR) (NotDetected) Parainfluenza 2 (PCR) (NotDetected) Parainfluenza 3 (PCR) (NotDetected) Parainfluenza 4 (PCR) (NotDetected) RSV (PCR) (NotDetected) Entero/Rhino (PCR) (NotDetected) 09/08/20 09/08/20 09/08/20 Range/Units 01:49 00:00 00:00 WBC (4.8-10.8) K/uL RBC (4.7-6.1) M/uL Hgb (14.0-18.0) g/dL POC Hgb (14.0-18.0) g/dl Hct (42-52) % POC Hct (42-52) % MCV (80-100) fL MCH (25-34) pg MCHC (32-36) g/dL RDW Std Deviation (36.4-46.3) fL RDW Coeff of Zoltan (11.5-14.5) % Plt Count (130-400) K/uL MPV (7.4-10.4) fL Immature Gran % (Auto) % Neut % (Auto) % Lymph % (Auto) % Mcpherson % (Auto) % Eos % (Auto) % Baso % (Auto) % Neut # (Auto) (1.4-6.5) K/uL Lymph # (Auto) (1.2-3.4) K/uL Mcpherson # (Auto) (0.11-0.59) K/uL Eos # (Auto) (0-0.5) K/uL Baso # (Auto) (0-0.2) K/uL Immature Gran # (Auto) (0.00-0.02) K/uL ESR (0-15) mm/hr PT (9.0-12.0) Seconds INR (0.9-1.1) APTT (21.0-31.0) Seconds PTT Ratio POC pH (7.35-7.45) POC pCO2 (35-46) mmHg POC pO2 (80-95) mmHg POC HCO3 (19-24) halie/L POC Total CO2 (24-31) mmol/L POC Base Excess (-9-1.8) halie/L POC ABG O2 Sat (90-95) % POC Sodium (135-144) mmol/L Sodium (136-145) mmol/L POC Potassium (3.3-5.0) mmol/L Potassium (3.5-5.1) mmol/L Chloride (98-107) mmol/L Carbon Dioxide (21-32) mmol/L Anion Gap (3-11) BUN (7-18) mg/dl Creatinine (0.6-1.4) mg/dl Est Cr Clr Drug Dosing Est GFR ( Amer) ml/min Est GFR (Non-Af Amer) ml/min BUN/Creatinine Ratio (10-20) Glucose (70-99) mg/dl POC Glucose (70-99) mg/dl Lactate 1.7 (0.4-2.0) mmol/L Calcium (8.5-10.1) mg/dl Phosphorus (2.5-4.9) mg/dl Magnesium (1.8-2.4) mg/dl Total Bilirubin (0.2-1) mg/dl AST (15-37) U/L ALT (12-78) U/L Alkaline Phosphatase (45-117) U/L Troponin I (0-0.045) ng/ml C-Reactive Protein (0-0.29) mg/dl NT-Pro-B Natriuret Pep (0-450) pg/ml Total Protein (6.4-8.2) gm/dl Albumin (3.4-5.0) gm/dl Globulin (2.5-4.0) gm/dl Albumin/Globulin Ratio (0.9-2) Lipase (73-393) U/L Procalcitonin (0-0.5) ng/ml TSH (0.300-4.500) uIu/ml Urine Color Urine Appearance (Clear) Urine pH (4.5-7.5) Ur Specific Blessing (1.000-1.030) Urine Protein (Negative) Urine Glucose (UA) (Negative) Urine Ketones (Negative) Urine Blood (Negative) Urine Nitrite (Negative) Urine Bilirubin (Negative) Urine Urobilinogen (Negative) Ur Leukocyte Esterase (Negative) Urine WBC (Auto) (0-5) /hpf Urine RBC (Auto) (0-4) /hpf U Hyaline Cast (Auto) (0-5) /lpf U Epithel Cells (Auto) (0-5) /lpf Urine Bacteria (Auto) (Negative) Adenovirus (PCR) Not Detected (NotDetected) B. pertussis DNA (PCR) Not Detected (NotDetected) B.parapertussis DNA PCR Not Detected (NotDetected) Lyme Disease IgG Ab (Negative) Lyme Disease IgM Ab (Negative) C. pneumoniae DNA (PCR) Not Detected (NotDetected) Coronavirus OC43 (PCR) Not Detected (NotDetected) Coronavirus HKU1 (PCR) Not Detected (NotDetected) Coronavirus 229E (PCR) Not Detected (NotDetected) COVID-19 Eval Order RESPNP at [facility] SARS-CoV-2 (PCR) Not Detected (NotDetected) Coronavirus NL63 (PCR) Not Detected (NotDetected) Human Metapneumovir PCR Not Detected (NotDetected) Influenza Type A (PCR) Not Detected (NotDetected) Influenza Type B (PCR) Not Detected (NotDetected) M. pneumoniae (PCR) Not Detected (NotDetected) Parainfluenza 1 (PCR) Not Detected (NotDetected) Parainfluenza 2 (PCR) Not Detected (NotDetected) Parainfluenza 3 (PCR) Not Detected (NotDetected) Parainfluenza 4 (PCR) Not Detected (NotDetected) RSV (PCR) Not Detected (NotDetected) Entero/Rhino (PCR) Not Detected (NotDetected) 09/07/20 09/07/20 09/07/20 Range/Units 23:47 23:44 23:32 WBC (4.8-10.8) K/uL RBC (4.7-6.1) M/uL Hgb (14.0-18.0) g/dL POC Hgb 15.0 (14.0-18.0) g/dl Hct (42-52) % POC Hct 44 (42-52) % MCV (80-100) fL MCH (25-34) pg MCHC (32-36) g/dL RDW Std Deviation (36.4-46.3) fL RDW Coeff of Zoltan (11.5-14.5) % Plt Count (130-400) K/uL MPV (7.4-10.4) fL Immature Gran % (Auto) % Neut % (Auto) % Lymph % (Auto) % Mcpherson % (Auto) % Eos % (Auto) % Baso % (Auto) % Neut # (Auto) (1.4-6.5) K/uL Lymph # (Auto) (1.2-3.4) K/uL Mcpherson # (Auto) (0.11-0.59) K/uL Eos # (Auto) (0-0.5) K/uL Baso # (Auto) (0-0.2) K/uL Immature Gran # (Auto) (0.00-0.02) K/uL ESR (0-15) mm/hr PT (9.0-12.0) Seconds INR (0.9-1.1) APTT (21.0-31.0) Seconds PTT Ratio POC pH 7.30 L (7.35-7.45) POC pCO2 49 H (35-46) mmHg POC pO2 344 H (80-95) mmHg POC HCO3 24 (19-24) halie/L POC Total CO2 26 (24-31) mmol/L POC Base Excess -2.0 (-9-1.8) halie/L POC ABG O2 Sat 100.0 H (90-95) % POC Sodium 142 (135-144) mmol/L Sodium (136-145) mmol/L POC Potassium 3.6 (3.3-5.0) mmol/L Potassium (3.5-5.1) mmol/L Chloride (98-107) mmol/L Carbon Dioxide (21-32) mmol/L Anion Gap (3-11) BUN (7-18) mg/dl Creatinine (0.6-1.4) mg/dl Est Cr Clr Drug Dosing Est GFR ( Amer) ml/min Est GFR (Non-Af Amer) ml/min BUN/Creatinine Ratio (10-20) Glucose (70-99) mg/dl POC Glucose (70-99) mg/dl Lactate 2.4 H* (0.4-2.0) mmol/L Calcium (8.5-10.1) mg/dl Phosphorus (2.5-4.9) mg/dl Magnesium (1.8-2.4) mg/dl Total Bilirubin (0.2-1) mg/dl AST (15-37) U/L ALT (12-78) U/L Alkaline Phosphatase (45-117) U/L Troponin I (0-0.045) ng/ml C-Reactive Protein (0-0.29) mg/dl NT-Pro-B Natriuret Pep (0-450) pg/ml Total Protein (6.4-8.2) gm/dl Albumin (3.4-5.0) gm/dl Globulin (2.5-4.0) gm/dl Albumin/Globulin Ratio (0.9-2) Lipase (73-393) U/L Procalcitonin (0-0.5) ng/ml TSH (0.300-4.500) uIu/ml Urine Color Dark Yellow Urine Appearance Clear (Clear) Urine pH 5.0 (4.5-7.5) Ur Specific Blessing 1.029 (1.000-1.030) Urine Protein 2+ H (Negative) Urine Glucose (UA) 2+ H (Negative) Urine Ketones Negative (Negative) Urine Blood Trace H (Negative) Urine Nitrite Negative (Negative) Urine Bilirubin Negative (Negative) Urine Urobilinogen Negative (Negative) Ur Leukocyte Esterase Trace H (Negative) Urine WBC (Auto) 5-10 H (0-5) /hpf Urine RBC (Auto) 0-4 (0-4) /hpf U Hyaline Cast (Auto) 1-5 (0-5) /lpf U Epithel Cells (Auto) >30 H (0-5) /lpf Urine Bacteria (Auto) Negative (Negative) Adenovirus (PCR) (NotDetected) B. pertussis DNA (PCR) (NotDetected) B.parapertussis DNA PCR (NotDetected) Lyme Disease IgG Ab (Negative) Lyme Disease IgM Ab (Negative) C. pneumoniae DNA (PCR) (NotDetected) Coronavirus OC43 (PCR) (NotDetected) Coronavirus HKU1 (PCR) (NotDetected) Coronavirus 229E (PCR) (NotDetected) COVID-19 Eval Order SARS-CoV-2 (PCR) (NotDetected) Coronavirus NL63 (PCR) (NotDetected) Human Metapneumovir PCR (NotDetected) Influenza Type A (PCR) (NotDetected) Influenza Type B (PCR) (NotDetected) M. pneumoniae (PCR) (NotDetected) Parainfluenza 1 (PCR) (NotDetected) Parainfluenza 2 (PCR) (NotDetected) Parainfluenza 3 (PCR) (NotDetected) Parainfluenza 4 (PCR) (NotDetected) RSV (PCR) (NotDetected) Entero/Rhino (PCR) (NotDetected) 09/07/20 09/07/20 09/07/20 Range/Units 23:22 23:22 23:22 WBC (4.8-10.8) K/uL RBC (4.7-6.1) M/uL Hgb (14.0-18.0) g/dL POC Hgb (14.0-18.0) g/dl Hct (42-52) % POC Hct (42-52) % MCV (80-100) fL MCH (25-34) pg MCHC (32-36) g/dL RDW Std Deviation (36.4-46.3) fL RDW Coeff of Zoltan (11.5-14.5) % Plt Count (130-400) K/uL MPV (7.4-10.4) fL Immature Gran % (Auto) % Neut % (Auto) % Lymph % (Auto) % Mcpherson % (Auto) % Eos % (Auto) % Baso % (Auto) % Neut # (Auto) (1.4-6.5) K/uL Lymph # (Auto) (1.2-3.4) K/uL Mcpherson # (Auto) (0.11-0.59) K/uL Eos # (Auto) (0-0.5) K/uL Baso # (Auto) (0-0.2) K/uL Immature Gran # (Auto) (0.00-0.02) K/uL ESR (0-15) mm/hr PT 10.1 (9.0-12.0) Seconds INR 1.0 (0.9-1.1) APTT 25.4 (21.0-31.0) Seconds PTT Ratio 1.0 POC pH (7.35-7.45) POC pCO2 (35-46) mmHg POC pO2 (80-95) mmHg POC HCO3 (19-24) halie/L POC Total CO2 (24-31) mmol/L POC Base Excess (-9-1.8) halie/L POC ABG O2 Sat (90-95) % POC Sodium (135-144) mmol/L Sodium (136-145) mmol/L POC Potassium (3.3-5.0) mmol/L Potassium (3.5-5.1) mmol/L Chloride (98-107) mmol/L Carbon Dioxide (21-32) mmol/L Anion Gap (3-11) BUN (7-18) mg/dl Creatinine (0.6-1.4) mg/dl Est Cr Clr Drug Dosing Est GFR ( Amer) ml/min Est GFR (Non-Af Amer) ml/min BUN/Creatinine Ratio (10-20) Glucose (70-99) mg/dl POC Glucose (70-99) mg/dl Lactate (0.4-2.0) mmol/L Calcium (8.5-10.1) mg/dl Phosphorus (2.5-4.9) mg/dl Magnesium (1.8-2.4) mg/dl Total Bilirubin (0.2-1) mg/dl AST (15-37) U/L ALT (12-78) U/L Alkaline Phosphatase (45-117) U/L Troponin I (0-0.045) ng/ml C-Reactive Protein (0-0.29) mg/dl NT-Pro-B Natriuret Pep (0-450) pg/ml Total Protein (6.4-8.2) gm/dl Albumin (3.4-5.0) gm/dl Globulin (2.5-4.0) gm/dl Albumin/Globulin Ratio (0.9-2) Lipase (73-393) U/L Procalcitonin < 0.05 (0-0.5) ng/ml TSH (0.300-4.500) uIu/ml Urine Color Urine Appearance (Clear) Urine pH (4.5-7.5) Ur Specific Blessing (1.000-1.030) Urine Protein (Negative) Urine Glucose (UA) (Negative) Urine Ketones (Negative) Urine Blood (Negative) Urine Nitrite (Negative) Urine Bilirubin (Negative) Urine Urobilinogen (Negative) Ur Leukocyte Esterase (Negative) Urine WBC (Auto) (0-5) /hpf Urine RBC (Auto) (0-4) /hpf U Hyaline Cast (Auto) (0-5) /lpf U Epithel Cells (Auto) (0-5) /lpf Urine Bacteria (Auto) (Negative) Adenovirus (PCR) (NotDetected) B. pertussis DNA (PCR) (NotDetected) B.parapertussis DNA PCR (NotDetected) Lyme Disease IgG Ab Negative (Negative) Lyme Disease IgM Ab Negative (Negative) C. pneumoniae DNA (PCR) (NotDetected) Coronavirus OC43 (PCR) (NotDetected) Coronavirus HKU1 (PCR) (NotDetected) Coronavirus 229E (PCR) (NotDetected) COVID-19 Eval Order SARS-CoV-2 (PCR) (NotDetected) Coronavirus NL63 (PCR) (NotDetected) Human Metapneumovir PCR (NotDetected) Influenza Type A (PCR) (NotDetected) Influenza Type B (PCR) (NotDetected) M. pneumoniae (PCR) (NotDetected) Parainfluenza 1 (PCR) (NotDetected) Parainfluenza 2 (PCR) (NotDetected) Parainfluenza 3 (PCR) (NotDetected) Parainfluenza 4 (PCR) (NotDetected) RSV (PCR) (NotDetected) Entero/Rhino (PCR) (NotDetected) 09/07/20 09/07/20 09/07/20 Range/Units 23:22 23:22 23:22 WBC 10.10 (4.8-10.8) K/uL RBC 5.01 (4.7-6.1) M/uL Hgb 14.6 (14.0-18.0) g/dL POC Hgb (14.0-18.0) g/dl Hct 43.0 (42-52) % POC Hct (42-52) % MCV 85.8 (80-100) fL MCH 29.1 (25-34) pg MCHC 34.0 (32-36) g/dL RDW Std Deviation 47.0 H (36.4-46.3) fL RDW Coeff of Zoltan 15.0 H (11.5-14.5) % Plt Count 155 (130-400) K/uL MPV 10.6 H (7.4-10.4) fL Immature Gran % (Auto) 0.3 % Neut % (Auto) 73.9 % Lymph % (Auto) 19.8 % Mcpherson % (Auto) 5.0 % Eos % (Auto) 0.9 % Baso % (Auto) 0.1 % Neut # (Auto) 7.46 H (1.4-6.5) K/uL Lymph # (Auto) 2.00 (1.2-3.4) K/uL Mcpherson # (Auto) 0.51 (0.11-0.59) K/uL Eos # (Auto) 0.09 (0-0.5) K/uL Baso # (Auto) 0.01 (0-0.2) K/uL Immature Gran # (Auto) 0.03 H (0.00-0.02) K/uL ESR 23 H (0-15) mm/hr PT (9.0-12.0) Seconds INR (0.9-1.1) APTT (21.0-31.0) Seconds PTT Ratio POC pH (7.35-7.45) POC pCO2 (35-46) mmHg POC pO2 (80-95) mmHg POC HCO3 (19-24) halie/L POC Total CO2 (24-31) mmol/L POC Base Excess (-9-1.8) halie/L POC ABG O2 Sat (90-95) % POC Sodium (135-144) mmol/L Sodium 140 (136-145) mmol/L POC Potassium (3.3-5.0) mmol/L Potassium 3.6 (3.5-5.1) mmol/L Chloride 110 H (98-107) mmol/L Carbon Dioxide 23 (21-32) mmol/L Anion Gap 7.0 (3-11) BUN 11 (7-18) mg/dl Creatinine 1.02 (0.6-1.4) mg/dl Est Cr Clr Drug Dosing Not Reportable Est GFR ( Amer) 103.9 ml/min Est GFR (Non-Af Amer) 89.6 ml/min BUN/Creatinine Ratio 10.9 (10-20) Glucose 264 H (70-99) mg/dl POC Glucose (70-99) mg/dl Lactate (0.4-2.0) mmol/L Calcium 8.0 L (8.5-10.1) mg/dl Phosphorus (2.5-4.9) mg/dl Magnesium 1.5 L (1.8-2.4) mg/dl Total Bilirubin 0.6 (0.2-1) mg/dl AST 46 H (15-37) U/L ALT 47 (12-78) U/L Alkaline Phosphatase 94 (45-117) U/L Troponin I 0.027 (0-0.045) ng/ml C-Reactive Protein 1.02 H (0-0.29) mg/dl NT-Pro-B Natriuret Pep 2820 H (0-450) pg/ml Total Protein 7.4 (6.4-8.2) gm/dl Albumin 3.3 L (3.4-5.0) gm/dl Globulin 4.1 H (2.5-4.0) gm/dl Albumin/Globulin Ratio 0.8 L (0.9-2) Lipase 142 (73-393) U/L Procalcitonin (0-0.5) ng/ml TSH 1.860 (0.300-4.500) uIu/ml Urine Color Urine Appearance (Clear) Urine pH (4.5-7.5) Ur Specific Blessing (1.000-1.030) Urine Protein (Negative) Urine Glucose (UA) (Negative) Urine Ketones (Negative) Urine Blood (Negative) Urine Nitrite (Negative) Urine Bilirubin (Negative) Urine Urobilinogen (Negative) Ur Leukocyte Esterase (Negative) Urine WBC (Auto) (0-5) /hpf Urine RBC (Auto) (0-4) /hpf U Hyaline Cast (Auto) (0-5) /lpf U Epithel Cells (Auto) (0-5) /lpf Urine Bacteria (Auto) (Negative) Adenovirus (PCR) (NotDetected) B. pertussis DNA (PCR) (NotDetected) B.parapertussis DNA PCR (NotDetected) Lyme Disease IgG Ab (Negative) Lyme Disease IgM Ab (Negative) C. pneumoniae DNA (PCR) (NotDetected) Coronavirus OC43 (PCR) (NotDetected) Coronavirus HKU1 (PCR) (NotDetected) Coronavirus 229E (PCR) (NotDetected) COVID-19 Eval Order SARS-CoV-2 (PCR) (NotDetected) Coronavirus NL63 (PCR) (NotDetected) Human Metapneumovir PCR (NotDetected) Influenza Type A (PCR) (NotDetected) Influenza Type B (PCR) (NotDetected) M. pneumoniae (PCR) (NotDetected) Parainfluenza 1 (PCR) (NotDetected) Parainfluenza 2 (PCR) (NotDetected) Parainfluenza 3 (PCR) (NotDetected) Parainfluenza 4 (PCR) (NotDetected) RSV (PCR) (NotDetected) Entero/Rhino (PCR) (NotDetected) Medications Administered Home Medication List Medication Instructions Recorded nitroglycerin 0.4 mg sublingual 0.4 mg SUBLINGUAL UD PRN 04/24/19 tablet (Nitrostat) cholecalciferol (vitamin D3) 50 50 mcg PO BID 10/04/19 mcg (2,000 unit) tablet (Vitamin D3) dulaglutide 1.5 mg/0.5 mL 1.5 mg SUBCUT WK #2 ml 04/21/20 subcutaneous pen injector (Trulicity) metoprolol succinate 100 mg 100 mg PO BID #60 tab 06/30/20 tablet,extended release 24 hr blood sugar diagnostic (OneTouch #200 ea 07/07/20 Verio test strips) aspirin 81 mg tablet,delayed 81 mg PO DAILY tab 07/10/20 release (Aspirin Low Dose) OneTouch Verio Flex meter #1 ea NS 07/27/20 (blood-glucose meter) Oxygen Home #1 ea 08/10/20 apixaban 5 mg tablet (Eliquis) 5 mg PO BID tab 08/10/20 atorvastatin 10 mg tablet 10 mg PO DAILY 08/10/20 nystatin 100,000 unit/gram topical 1 applic TOPICAL BID #15 g 08/10/20 ointment sacubitril 97 mg-valsartan 103 mg 1 tab PO BID 08/10/20 tablet (Entresto) torsemide 20 mg tablet 80 mg PO BID 08/18/20 spironolactone 25 mg tablet 50 mg PO QAM #30 tab 08/23/20 (Aldactone) Supervising Physician Co-Signing Physician Notes Attending addendum: I have physically seen this patient, have supervised the medical residents activities, and agree with the H&P unless as otherwise noted. Assessment and Plan: Acute on chronic HFrEF/nonischemic cardiomyopathy- The patient will be admitted to telemetry for serial cardiac enzymes, serial EKG's, cardiac rhythm monitoring and a 2-D echocardiogram with Dopplers. Given furosemide 80 mg IV in ED. Admit on furosemide 40 mg IV twice daily, but may need to increase dosing and/or frequency Continue metoprolol, Entresto, spironolactone and isosorbide mononitrate Diabetes mellitus- Poorly controlled Patient Accu-Cheks before meals and at bedtime with NovoLog coverage per scale Likely an element of medical noncompliance resulting in frequent readmissions Remaining orders and notations as noted Resident Activity Tracking Resident Involvement: Resident Care Provided Care Provided: Adult Hospital Medicine (1) Hypertension Hypertension type: essential hypertension Qualified Code(s): I10 - Essential (primary) hypertension
[2020-09-08 01:26] LABS: Adenovirus PCR Not Detected (NotDetected); Bordetella parapertussis PCR Not Detected (NotDetected); Bordetella pertussis PCR Not Detected (NotDetected); Chlamydia pneumoniae PCR Not Detected (NotDetected); Coronavirus 229E PCR Not Detected (NotDetected); Coronavirus CoV-2 (COVID19)PCR Not Detected (NotDetected); Coronavirus HKU1 PCR Not Detected (NotDetected); Coronavirus NL63 PCR Not Detected (NotDetected); Coronavirus OC43PCR Not Detected (NotDetected); Human Metapneumovirus PCR Not Detected (NotDetected); Influenza A PCR Not Detected (NotDetected); Influenza B PCR Not Detected (NotDetected); Mycoplasma pneumoniae PCR Not Detected (NotDetected); Parainfluenza Virus 1 PCR Not Detected (NotDetected); Parainfluenza Virus 2 PCR Not Detected (NotDetected); Parainfluenza Virus 3 PCR Not Detected (NotDetected); Parainfluenza Virus 4 PCR Not Detected (NotDetected); Respiratory Syncytial VirusPCR Not Detected (NotDetected); Rhinovirus/Enterovirus PCR Not Detected (NotDetected)
[2020-09-08 01:34] LABS: Appearance Urine Clear (Clear); Bacteria Urine Automated Negative (Negative); Bilirubin Urine Negative (Negative); Blood Urine Trace (Negative); Color Urine Dark Yellow; Epithelial Cell Urine Auto >30 /lpf (0-5); Glucose Urine UA 2+ (Negative); Ketones Urine Negative (Negative); Leukocyte Esterase Urine Trace (Negative); Nitrite Urine Negative (Negative); Protein Urine 2+ (Negative); RBC Urine Automated 0-4 /hpf (0-4); Specific Gravity Urine 1.029 (1.000-1.030); Urobilinogen Urine Negative (Negative)
--- NOTE | 2020-09-08 02:42 | Emergency Department Note ---
History of Present Illness General Chief complaint: Shortness of Breath/Dyspnea Stated complaint: SOB/DEFIB FIRING History of Present Illness This is a medically complicated 44-year-old male presenting to the emergency department for evaluation of acute respiratory distress. The patient arrives via EMS from home, and states that approximately 4 hours prior to arrival he began having shortness of breath symptoms. The patient has a history of nonischemic cardiomyopathy, acute respiratory failure, CHF, defibrillator in situ, morbid obesity, and diabetes. The patient was reportedly having difficulty breathing on EMS arrival to the home and was placed on 15 L nonrebreather. Removal of the mass causes him to immediately desaturate. The patient believes that his defibrillator has triggered 5 times in the past few hours. History is somewhat limited as the patient is not able to speak in full sentences. Home Medications Medication Instructions Recorded Confirmed Type nitroglycerin 0.4 mg sublingual 0.4 mg SUBLINGUAL UD PRN 04/24/19 09/07/20 History tablet (Nitrostat) cholecalciferol (vitamin D3) 50 50 mcg PO BID 10/04/19 09/07/20 History mcg (2,000 unit) tablet (Vitamin D3) dulaglutide 1.5 mg/0.5 mL 1.5 mg SUBCUT WK #2 ml 04/21/20 09/07/20 Rx subcutaneous pen injector (Trulicity) metoprolol succinate 100 mg 100 mg PO BID #60 tab 06/30/20 09/07/20 Rx tablet,extended release 24 hr blood sugar diagnostic (OneTouch #200 ea 07/07/20 Rx Verio test strips) aspirin 81 mg tablet,delayed 81 mg PO DAILY tab 07/10/20 09/07/20 History release (Aspirin Low Dose) OneTouch Verio Flex meter #1 ea NS 07/27/20 Rx (blood-glucose meter) Oxygen Home #1 ea 08/10/20 08/10/20 Rx apixaban 5 mg tablet (Eliquis) 5 mg PO BID tab 08/10/20 09/07/20 History atorvastatin 10 mg tablet 10 mg PO DAILY 08/10/20 09/07/20 History nystatin 100,000 unit/gram topical 1 applic TOPICAL BID #15 g 08/10/20 09/07/20 Rx ointment sacubitril 97 mg-valsartan 103 mg 1 tab PO BID 08/10/20 09/07/20 History tablet (Entresto) torsemide 20 mg tablet 80 mg PO BID 08/18/20 08/18/20 History spironolactone 25 mg tablet 50 mg PO QAM #30 tab 08/23/20 08/18/20 Rx (Aldactone) Allergies Allergy/AdvReac Type Severity Reaction Status Date / Time ceftriaxone Allergy Severe SHORTNESS Verified 09/07/20 23:21 OF BREATH lidocaine Allergy Severe SHORTNESS Verified 09/07/20 23:21 OF BREATH, diaphoretic, hives procaine Allergy Severe SHORTNESS Verified 09/07/20 23:21 OF BREATH, diaphoretic, hives amoxicillin Allergy Intermediate HIVES/FACIAL Verified 09/07/20 23:21 SWELLING clavulanic acid Allergy Intermediate HIVES/FACIAL Verified 09/07/20 23:21 SWELLING lisinopril Allergy Intermediate HIVES Verified 09/07/20 23:21 acetaminophen AdvReac Mild NAUSEA Verified 09/07/20 23:21 albuterol AdvReac Mild proair Verified 09/07/20 23:21 "trouble taking breaths" Fish Containing Products AdvReac Unknown Verified 09/07/20 23:21 Past Med/Surg History Medical History Cellulitis of neck Chronic respiratory failure Dilatation of thoracic aorta Fatty liver Hearing loss of both ears Hypoxia Iliac aneurysm Left-sided weakness Lung nodule NICM (nonischemic cardiomyopathy) Pt admitted for elective ICD. Underwent procedure without any complications monitored over night and discharged home. Obstructive sleep apnea SOB (shortness of breath) Umbilical hernia Vitamin D insufficiency Previously deficient, taking Vit D supplementation Surgical History History of carpal tunnel surgery History of cholecystectomy S/P tonsillectomy Family History Father , age 57 of an [place]. Heart disease Myocardial infarction Mother , age 67 of a ruptured neck vessel Sudden Other Depression Lung disease No pertinent family history Denies family history of Ovarian cancer Prostate cancer Breast cancer Colorectal cancer Social History Smoking Status: Former smoker Age Started Using Tobacco: 14; Age Quit Using Tobacco: 18; Cigarettes Per Day: 40-50; Second Hand Exposure: No; Do You Dip or Chew Tobacco: No; Hx Alcohol Use: Yes Alcohol type: other Hx Substance Use: No Preferred Language: Belgian Communication Ability: Effective Visual Impairment: No Limitations Hearing Ability: Normal Roll Coverer Required: No Beliefs That Will Affect Care: None marital status: Current Living Situation: Spouse current occupational status: unemployed How many Children do You have: 0 Other Information That Helps Us Care for You: No Feels Safe at Home: Yes Safety Concerns: Feels Safe At This Time Childhood Exposure to Second-Hand Smoke: Yes Dental Care, Regularly: Yes Physical Activity Frequency: Does not Exercise Assistive Devices: BiPap Assistive Devices Comment: power chair Review of Systems A total of 10 systems reviewed and were otherwise negative Physical Exam Vital Signs Vital Signs - 24 hr 09/07/20 23:07 09/07/20 23:18 09/07/20 23:27 Temperature 36.8 C Temperature Source Axillary Pulse Rate 139 H 137 H Pulse Rhythm Regular Respiratory Rate 27 H 36 H Respiratory Effort / Characteristics Short of Breath Blood Pressure 228/162 H Blood Pressure Mean 184 Blood Pressure Position Lying Pulse Oximetry 97 100 Oxygen Delivery Method Non-rebreather BiPAP Oxygen Flow Rate 15 Fraction of Inspired Oxygen 100 Sepsis Recent Fever Within 48 Hours No Sepsis New/Unexplained Change in Mental Status No Sepsis Action Taken by Nursing No Action Required 09/08/20 00:15 Temperature Temperature Source Pulse Rate Pulse Rhythm Respiratory Rate Respiratory Effort / Characteristics Blood Pressure Blood Pressure Mean Blood Pressure Position Pulse Oximetry Oxygen Delivery Method Oxygen Flow Rate Fraction of Inspired Oxygen 50 Sepsis Recent Fever Within 48 Hours Sepsis New/Unexplained Change in Mental Status Sepsis Action Taken by Nursing VITALS: Vitals are noted on the nurse's note and reviewed by myself. Vital signs noted. GENERAL: Morbidly obese white male who is in acute respiratory distress. He is not able to speak, but will nod his head and answer questions. He appears in severe distress. HEAD: Normocephalic atraumatic. HEART: Regular rate and rhythm without murmurs gallops or rubs. LUNGS: Diffuse wheezing and crackles throughout ABDOMEN: Protuberant abdomen that is soft and nontender. He is "belly breathing" MUSCULOSKELETAL: Full range of motion in all extremities. NEURO: Patient was alert and oriented to person place and time. CN II through XII grossly intact. Course Administered Medications Discontinued Medications Furosemide (Furosemide 40 Mg/4 Ml Vial) 80 mg IV NOW STA Stop: 09/07/20 23:34 Last Admin: 09/08/20 01:11 Dose: 80 mg Documented by: [id number] Lorazepam (Ativan) 1 mg in 2 mls @ 2 mls/min IV NOW STA Stop: 09/07/20 23:14 Last Admin: 09/07/20 23:23 Dose: 2 mls/min Documented by: [id number] Lorazepam (Lorazepam 2 Mg/4 Ml Vial) Confirm Administered Dose 2 mg .ROUTE .STK- MED ONE Stop: 09/07/20 23:16 Last Admin: 09/07/20 23:24 Dose: Not Given Documented by: [id number] Critical Care Time I have personally spent greater than 57 minutes of critical care time in the direct management of this patient. This includes bedside care, interpretation of diagnostic studies, and testing, discussion with consultants, patient, and family members, and other required patient management activities. This 57 minutes is in excess of all separately billable procedures. Medical Decision Making Differential Diagnosis Differential diagnosis: Etiologies such as infections, reactive airway disease, COPD, pneumonia, pleural effusion, pulmonary edema, ARDS, pneumothorax, CHF, cardiac ischemia, cardiac tamponade, dysrhythmia, anemia, pulmonary embolism, musculoskeletal, gastrointestinal process, as well as others were entertained. Laboratory Data Result diagrams: 09/08/20 05:56 09/07/20 23:22 Lab Results 09/07/20 09/07/20 09/07/20 Range/Units 23:22 23:22 23:22 WBC 10.10 (4.8-10.8) K/uL RBC 5.01 (4.7-6.1) M/uL Hgb 14.6 (14.0-18.0) g/dL POC Hgb (14.0-18.0) g/dl Hct 43.0 (42-52) % POC Hct (42-52) % MCV 85.8 (80-100) fL MCH 29.1 (25-34) pg MCHC 34.0 (32-36) g/dL RDW Std Deviation 47.0 H (36.4-46.3) fL RDW Coeff of Zoltan 15.0 H (11.5-14.5) % Plt Count 155 (130-400) K/uL MPV 10.6 H (7.4-10.4) fL Immature Gran % (Auto) 0.3 % Neut % (Auto) 73.9 % Lymph % (Auto) 19.8 % Storey % (Auto) 5.0 % Eos % (Auto) 0.9 % Baso % (Auto) 0.1 % Neut # (Auto) 7.46 H (1.4-6.5) K/uL Lymph # (Auto) 2.00 (1.2-3.4) K/uL Storey # (Auto) 0.51 (0.11-0.59) K/uL Eos # (Auto) 0.09 (0-0.5) K/uL Baso # (Auto) 0.01 (0-0.2) K/uL Immature Gran # (Auto) 0.03 H (0.00-0.02) K/uL ESR 23 H (0-15) mm/hr PT (9.0-12.0) Seconds INR (0.9-1.1) APTT (21.0-31.0) Seconds PTT Ratio POC pH (7.35-7.45) POC pCO2 (35-46) mmHg POC pO2 (80-95) mmHg POC HCO3 (19-24) halie/L POC Total CO2 (24-31) mmol/L POC Base Excess (-9-1.8) halie/L POC ABG O2 Sat (90-95) % POC Sodium (135-144) mmol/L Sodium 140 (136-145) mmol/L POC Potassium (3.3-5.0) mmol/L Potassium 3.6 (3.5-5.1) mmol/L Chloride 110 H (98-107) mmol/L Carbon Dioxide 23 (21-32) mmol/L Anion Gap 7.0 (3-11) BUN 11 (7-18) mg/dl Creatinine 1.02 (0.6-1.4) mg/dl Est Cr Clr Drug Dosing Not Reportable Est GFR ( Amer) 103.9 ml/min Est GFR (Non-Af Amer) 89.6 ml/min BUN/Creatinine Ratio 10.9 (10-20) Glucose 264 H (70-99) mg/dl Lactate (0.4-2.0) mmol/L Calcium 8.0 L (8.5-10.1) mg/dl Magnesium 1.5 L (1.8-2.4) mg/dl Total Bilirubin 0.6 (0.2-1) mg/dl AST 46 H (15-37) U/L ALT 47 (12-78) U/L Alkaline Phosphatase 94 (45-117) U/L Troponin I 0.027 (0-0.045) ng/ml C-Reactive Protein 1.02 H (0-0.29) mg/dl NT-Pro-B Natriuret Pep 2820 H (0-450) pg/ml Total Protein 7.4 (6.4-8.2) gm/dl Albumin 3.3 L (3.4-5.0) gm/dl Globulin 4.1 H (2.5-4.0) gm/dl Albumin/Globulin Ratio 0.8 L (0.9-2) Lipase 142 (73-393) U/L Procalcitonin (0-0.5) ng/ml TSH 1.860 (0.300-4.500) uIu/ml Urine Color Urine Appearance (Clear) Urine pH (4.5-7.5) Ur Specific [place] (1.000-1.030) Urine Protein (Negative) Urine Glucose (UA) (Negative) Urine Ketones (Negative) Urine Blood (Negative) Urine Nitrite (Negative) Urine Bilirubin (Negative) Urine Urobilinogen (Negative) Ur Leukocyte Esterase (Negative) Urine WBC (Auto) (0-5) /hpf Urine RBC (Auto) (0-4) /hpf U Hyaline Cast (Auto) (0-5) /lpf U Epithel Cells (Auto) (0-5) /lpf Urine Bacteria (Auto) (Negative) Adenovirus (PCR) (NotDetected) B. pertussis DNA (PCR) (NotDetected) B.parapertussis DNA PCR (NotDetected) Lyme Disease IgG Ab (Negative) Lyme Disease IgM Ab (Negative) C. pneumoniae DNA (PCR) (NotDetected) Coronavirus OC43 (PCR) (NotDetected) Coronavirus HKU1 (PCR) (NotDetected) Coronavirus 229E (PCR) (NotDetected) COVID-19 Eval Order SARS-CoV-2 (PCR) (NotDetected) Coronavirus NL63 (PCR) (NotDetected) Human Metapneumovir PCR (NotDetected) Influenza Type A (PCR) (NotDetected) Influenza Type B (PCR) (NotDetected) M. pneumoniae (PCR) (NotDetected) Parainfluenza 1 (PCR) (NotDetected) Parainfluenza 2 (PCR) (NotDetected) Parainfluenza 3 (PCR) (NotDetected) Parainfluenza 4 (PCR) (NotDetected) RSV (PCR) (NotDetected) Entero/Rhino (PCR) (NotDetected) 09/07/20 09/07/20 09/07/20 Range/Units 23:22 23:22 23:22 WBC (4.8-10.8) K/uL RBC (4.7-6.1) M/uL Hgb (14.0-18.0) g/dL POC Hgb (14.0-18.0) g/dl Hct (42-52) % POC Hct (42-52) % MCV (80-100) fL MCH (25-34) pg MCHC (32-36) g/dL RDW Std Deviation (36.4-46.3) fL RDW Coeff of Zoltan (11.5-14.5) % Plt Count (130-400) K/uL MPV (7.4-10.4) fL Immature Gran % (Auto) % Neut % (Auto) % Lymph % (Auto) % [place]y % (Auto) % Eos % (Auto) % Baso % (Auto) % Neut # (Auto) (1.4-6.5) K/uL Lymph # (Auto) (1.2-3.4) K/uL [place] # (Auto) (0.11-0.59) K/uL Eos # (Auto) (0-0.5) K/uL Baso # (Auto) (0-0.2) K/uL Immature Gran # (Auto) (0.00-0.02) K/uL ESR (0-15) mm/hr PT 10.1 (9.0-12.0) Seconds INR 1.0 (0.9-1.1) APTT 25.4 (21.0-31.0) Seconds PTT Ratio 1.0 POC pH (7.35-7.45) POC pCO2 (35-46) mmHg POC pO2 (80-95) mmHg POC HCO3 (19-24) halie/L POC Total CO2 (24-31) mmol/L POC Base Excess (-9-1.8) halie/L POC ABG O2 Sat (90-95) % POC Sodium (135-144) mmol/L Sodium (136-145) mmol/L POC Potassium (3.3-5.0) mmol/L Potassium (3.5-5.1) mmol/L Chloride (98-107) mmol/L Carbon Dioxide (21-32) mmol/L Anion Gap (3-11) BUN (7-18) mg/dl Creatinine (0.6-1.4) mg/dl Est Cr Clr Drug Dosing Est GFR ( Amer) ml/min Est GFR (Non-Af Amer) ml/min BUN/Creatinine Ratio (10-20) Glucose (70-99) mg/dl Lactate (0.4-2.0) mmol/L Calcium (8.5-10.1) mg/dl Magnesium (1.8-2.4) mg/dl Total Bilirubin (0.2-1) mg/dl AST (15-37) U/L ALT (12-78) U/L Alkaline Phosphatase (45-117) U/L Troponin I (0-0.045) ng/ml C-Reactive Protein (0-0.29) mg/dl NT-Pro-B Natriuret Pep (0-450) pg/ml Total Protein (6.4-8.2) gm/dl Albumin (3.4-5.0) gm/dl Globulin (2.5-4.0) gm/dl Albumin/Globulin Ratio (0.9-2) Lipase (73-393) U/L Procalcitonin < 0.05 (0-0.5) ng/ml TSH (0.300-4.500) uIu/ml Urine Color Urine Appearance (Clear) Urine pH (4.5-7.5) Ur Specific [place] (1.000-1.030) Urine Protein (Negative) Urine Glucose (UA) (Negative) Urine Ketones (Negative) Urine Blood (Negative) Urine Nitrite (Negative) Urine Bilirubin (Negative) Urine Urobilinogen (Negative) Ur Leukocyte Esterase (Negative) Urine WBC (Auto) (0-5) /hpf Urine RBC (Auto) (0-4) /hpf U Hyaline Cast (Auto) (0-5) /lpf U Epithel Cells (Auto) (0-5) /lpf Urine Bacteria (Auto) (Negative) Adenovirus (PCR) (NotDetected) B. pertussis DNA (PCR) (NotDetected) B.parapertussis DNA PCR (NotDetected) Lyme Disease IgG Ab Negative (Negative) Lyme Disease IgM Ab Negative (Negative) C. pneumoniae DNA (PCR) (NotDetected) Coronavirus OC43 (PCR) (NotDetected) Coronavirus HKU1 (PCR) (NotDetected) Coronavirus 229E (PCR) (NotDetected) COVID-19 Eval Order SARS-CoV-2 (PCR) (NotDetected) Coronavirus NL63 (PCR) (NotDetected) Human Metapneumovir PCR (NotDetected) Influenza Type A (PCR) (NotDetected) Influenza Type B (PCR) (NotDetected) M. pneumoniae (PCR) (NotDetected) Parainfluenza 1 (PCR) (NotDetected) Parainfluenza 2 (PCR) (NotDetected) Parainfluenza 3 (PCR) (NotDetected) Parainfluenza 4 (PCR) (NotDetected) RSV (PCR) (NotDetected) Entero/Rhino (PCR) (NotDetected) 09/07/20 09/07/20 09/07/20 Range/Units 23:32 23:44 23:47 WBC (4.8-10.8) K/uL RBC (4.7-6.1) M/uL Hgb (14.0-18.0) g/dL POC Hgb 15.0 (14.0-18.0) g/dl Hct (42-52) % POC Hct 44 (42-52) % MCV (80-100) fL MCH (25-34) pg MCHC (32-36) g/dL RDW Std Deviation (36.4-46.3) fL RDW Coeff of Zoltan (11.5-14.5) % Plt Count (130-400) K/uL MPV (7.4-10.4) fL Immature Gran % (Auto) % Neut % (Auto) % Lymph % (Auto) % [place] % (Auto) % Eos % (Auto) % Baso % (Auto) % Neut # (Auto) (1.4-6.5) K/uL Lymph # (Auto) (1.2-3.4) K/uL [place] # (Auto) (0.11-0.59) K/uL Eos # (Auto) (0-0.5) K/uL Baso # (Auto) (0-0.2) K/uL Immature Gran # (Auto) (0.00-0.02) K/uL ESR (0-15) mm/hr PT (9.0-12.0) Seconds INR (0.9-1.1) APTT (21.0-31.0) Seconds PTT Ratio POC pH 7.30 L (7.35-7.45) POC pCO2 49 H (35-46) mmHg POC pO2 344 H (80-95) mmHg POC HCO3 24 (19-24) halie/L POC Total CO2 26 (24-31) mmol/L POC Base Excess -2.0 (-9-1.8) halie/L POC ABG O2 Sat 100.0 H (90-95) % POC Sodium 142 (135-144) mmol/L Sodium (136-145) mmol/L POC Potassium 3.6 (3.3-5.0) mmol/L Potassium (3.5-5.1) mmol/L Chloride (98-107) mmol/L Carbon Dioxide (21-32) mmol/L Anion Gap (3-11) BUN (7-18) mg/dl Creatinine (0.6-1.4) mg/dl Est Cr Clr Drug Dosing Est GFR ( Amer) ml/min Est GFR (Non-Af Amer) ml/min BUN/Creatinine Ratio (10-20) Glucose (70-99) mg/dl Lactate 2.4 H* (0.4-2.0) mmol/L Calcium (8.5-10.1) mg/dl Magnesium (1.8-2.4) mg/dl Total Bilirubin (0.2-1) mg/dl AST (15-37) U/L ALT (12-78) U/L Alkaline Phosphatase (45-117) U/L Troponin I (0-0.045) ng/ml C-Reactive Protein (0-0.29) mg/dl NT-Pro-B Natriuret Pep (0-450) pg/ml Total Protein (6.4-8.2) gm/dl Albumin (3.4-5.0) gm/dl Globulin (2.5-4.0) gm/dl Albumin/Globulin Ratio (0.9-2) Lipase (73-393) U/L Procalcitonin (0-0.5) ng/ml TSH (0.300-4.500) uIu/ml Urine Color Dark Yellow Urine Appearance Clear (Clear) Urine pH 5.0 (4.5-7.5) Ur Specific [place] 1.029 (1.000-1.030) Urine Protein 2+ H (Negative) Urine Glucose (UA) 2+ H (Negative) Urine Ketones Negative (Negative) Urine Blood Trace H (Negative) Urine Nitrite Negative (Negative) Urine Bilirubin Negative (Negative) Urine Urobilinogen Negative (Negative) Ur Leukocyte Esterase Trace H (Negative) Urine WBC (Auto) 5-10 H (0-5) /hpf Urine RBC (Auto) 0-4 (0-4) /hpf U Hyaline Cast (Auto) 1-5 (0-5) /lpf U Epithel Cells (Auto) >30 H (0-5) /lpf Urine Bacteria (Auto) Negative (Negative) Adenovirus (PCR) (NotDetected) B. pertussis DNA (PCR) (NotDetected) B.parapertussis DNA PCR (NotDetected) Lyme Disease IgG Ab (Negative) Lyme Disease IgM Ab (Negative) C. pneumoniae DNA (PCR) (NotDetected) Coronavirus OC43 (PCR) (NotDetected) Coronavirus HKU1 (PCR) (NotDetected) Coronavirus 229E (PCR) (NotDetected) COVID-19 Eval Order SARS-CoV-2 (PCR) (NotDetected) Coronavirus NL63 (PCR) (NotDetected) Human Metapneumovir PCR (NotDetected) Influenza Type A (PCR) (NotDetected) Influenza Type B (PCR) (NotDetected) M. pneumoniae (PCR) (NotDetected) Parainfluenza 1 (PCR) (NotDetected) Parainfluenza 2 (PCR) (NotDetected) Parainfluenza 3 (PCR) (NotDetected) Parainfluenza 4 (PCR) (NotDetected) RSV (PCR) (NotDetected) Entero/Rhino (PCR) (NotDetected) 09/08/20 09/08/20 Range/Units 00:00 00:00 WBC (4.8-10.8) K/uL RBC (4.7-6.1) M/uL Hgb (14.0-18.0) g/dL POC Hgb (14.0-18.0) g/dl Hct (42-52) % POC Hct (42-52) % MCV (80-100) fL MCH (25-34) pg MCHC (32-36) g/dL RDW Std Deviation (36.4-46.3) fL RDW Coeff of Zoltan (11.5-14.5) % Plt Count (130-400) K/uL MPV (7.4-10.4) fL Immature Gran % (Auto) % Neut % (Auto) % Lymph % (Auto) % [place] % (Auto) % Eos % (Auto) % Baso % (Auto) % Neut # (Auto) (1.4-6.5) K/uL Lymph # (Auto) (1.2-3.4) K/uL [place] # (Auto) (0.11-0.59) K/uL Eos # (Auto) (0-0.5) K/uL Baso # (Auto) (0-0.2) K/uL Immature Gran # (Auto) (0.00-0.02) K/uL ESR (0-15) mm/hr PT (9.0-12.0) Seconds INR (0.9-1.1) APTT (21.0-31.0) Seconds PTT Ratio POC pH (7.35-7.45) POC pCO2 (35-46) mmHg POC pO2 (80-95) mmHg POC HCO3 (19-24) halie/L POC Total CO2 (24-31) mmol/L POC Base Excess (-9-1.8) halie/L POC ABG O2 Sat (90-95) % POC Sodium (135-144) mmol/L Sodium (136-145) mmol/L POC Potassium (3.3-5.0) mmol/L Potassium (3.5-5.1) mmol/L Chloride (98-107) mmol/L Carbon Dioxide (21-32) mmol/L Anion Gap (3-11) BUN (7-18) mg/dl Creatinine (0.6-1.4) mg/dl Est Cr Clr Drug Dosing Est GFR ( Amer) ml/min Est GFR (Non-Af Amer) ml/min BUN/Creatinine Ratio (10-20) Glucose (70-99) mg/dl Lactate (0.4-2.0) mmol/L Calcium (8.5-10.1) mg/dl Magnesium (1.8-2.4) mg/dl Total Bilirubin (0.2-1) mg/dl AST (15-37) U/L ALT (12-78) U/L Alkaline Phosphatase (45-117) U/L Troponin I (0-0.045) ng/ml C-Reactive Protein (0-0.29) mg/dl NT-Pro-B Natriuret Pep (0-450) pg/ml Total Protein (6.4-8.2) gm/dl Albumin (3.4-5.0) gm/dl Globulin (2.5-4.0) gm/dl Albumin/Globulin Ratio (0.9-2) Lipase (73-393) U/L Procalcitonin (0-0.5) ng/ml TSH (0.300-4.500) uIu/ml Urine Color Urine Appearance (Clear) Urine pH (4.5-7.5) Ur Specific [place] (1.000-1.030) Urine Protein (Negative) Urine Glucose (UA) (Negative) Urine Ketones (Negative) Urine Blood (Negative) Urine Nitrite (Negative) Urine Bilirubin (Negative) Urine Urobilinogen (Negative) Ur Leukocyte Esterase (Negative) Urine WBC (Auto) (0-5) /hpf Urine RBC (Auto) (0-4) /hpf U Hyaline Cast (Auto) (0-5) /lpf U Epithel Cells (Auto) (0-5) /lpf Urine Bacteria (Auto) (Negative) Adenovirus (PCR) Not Detected (NotDetected) B. pertussis DNA (PCR) Not Detected (NotDetected) B.parapertussis DNA PCR Not Detected (NotDetected) Lyme Disease IgG Ab (Negative) Lyme Disease IgM Ab (Negative) C. pneumoniae DNA (PCR) Not Detected (NotDetected) Coronavirus OC43 (PCR) Not Detected (NotDetected) Coronavirus HKU1 (PCR) Not Detected (NotDetected) Coronavirus 229E (PCR) Not Detected (NotDetected) COVID-19 Eval Order [facility] at [facility] SARS-CoV-2 (PCR) Not Detected (NotDetected) Coronavirus NL63 (PCR) Not Detected (NotDetected) Human Metapneumovir PCR Not Detected (NotDetected) Influenza Type A (PCR) Not Detected (NotDetected) Influenza Type B (PCR) Not Detected (NotDetected) M. pneumoniae (PCR) Not Detected (NotDetected) Parainfluenza 1 (PCR) Not Detected (NotDetected) Parainfluenza 2 (PCR) Not Detected (NotDetected) Parainfluenza 3 (PCR) Not Detected (NotDetected) Parainfluenza 4 (PCR) Not Detected (NotDetected) RSV (PCR) Not Detected (NotDetected) Entero/Rhino (PCR) Not Detected (NotDetected) ECG Data Attestation: I personally reviewed and interpreted this ECG as follows: Additional Comments: Sinus tachycardia @123 bpm Left axis deviation Nonspecific ST and T wave abnormality Abnormal ECG When compared with ECG of 18-AUG-2020 18:35, No significant change was found MDM Narrative Physical exam and history were performed. Nursing notes, EMR, and Medication List were personally reviewed. Patient appears to have severe acute onset respiratory failure. The patient is on nonrebreather and is not tolerating this well. IV access was established and labs were obtained. The case was immediately discussed with my attending physician, Dr. Moya, as well as the hospitalist, Dr. Jaquez, both of whom evaluated the patient at bedside upon his arrival to the department. Optio ns of care were discussed with the patient, and he prefers not to use BiPAP. The patient was given a dose of Ativan and BiPAP was ordered, and ultimately he did seem to tolerate this reasonably well. Chest x-ray was ordered as well as extensive labs. An order was placed for continuous cardiac monitoring. The monitor shows a rate of 128 with sinus tachycardic rhythm. The patient's blood is as above and was reviewed. His white blood cell count is 11.49. He does not have significant anemia or gross electrolyte imbalance. Inflammatory markers are slightly elevated. INR is 1.0. [id number] ABG shows he is slightly acidotic at 7.3 with a PCO2 of 49 and PO2 of 344. Glucose is 242. Troponin is detectable but negative at 0.027. BNP is greater than 2000 and the patient was given 80 mg IV Lasix here in the ER. Chest x-ray was reviewed by myself and my attending, and appears to show significant fluid throughout the lungs which would correlate with CHF exacerbation. Bio fire was performed and did not identify infectious etiology of the patient's symptoms. Blood cultures are pending. Lactic is minimally elevated at 2.4 initially, with repeat at 1.7. The patient was reevaluated multiple times throughout the course of his stay. He did have some improvement but not complete resolution of his symptoms on the BiPAP and after the Ativan. He certainly does not appear well for discharge home. Case was discussed with the hospitalist team who evaluated the patient here in the department. Please see their dictation for further patient course, plan, and disposition. The chart was completed utilizing [employer] Speech Voice Recognition Software. Grammatical errors, random word insertions, pronoun errors, and incomplete sentences are an occasional consequence of this system due to software limitations, ambient noise, and hardware issues. Any formal questions or concerns about the content, text, or information contained within the body of this dictation should be directly addressed to the provider for clarification. . Impression & Plan Acute respiratory failure, CHF exacerbation, Atypical chest pain Discharge Plan Visit Data Chief Complaint: Shortness of Breath/Dyspnea Stated Complaint: SOB/DEFIB FIRING ED Provider: Lenny Moya ED Midlevel Provider: Vick Banuelos Discharge Problem: Acute respiratory failure, CHF exacerbation, Atypical chest pain Patient Disposition: Admitted As Inpatient Discharge Instructions Interventions: ED Discharge Assessment Last Done: 09/08/20 02:22 Discharge Problem: Acute respiratory failure Qualifiers: Respiratory failure complication: unspecified whether with hypoxia or hyper capnia Qualified Code(s): J96.00 - Acute respiratory failure, unspecified w hether with hypoxia or hypercapnia CHF exacerbation Qualifiers: Heart failure type: unspecified Qualified Code(s): I50.9 - Heart failure, unspecified
[2020-09-08] MEDS ORDERED: NITROGLYCERIN SL 0.4 MG/TAB TAB SL PRN (04:07)
[2020-09-08] MEDS ORDERED: MAGNESIUM HYDROXIDE SUSP 30 ML UDC PO PRN (04:07)
[2020-09-08] MEDS ORDERED: MoRPHine SULFATE 2 MG/ML CARP IV PRN (04:07)
[2020-09-08] MEDS ORDERED: ACETAMINOPHEN 325 MG TAB PO PRN (04:07)
[2020-09-08] MEDS ORDERED: ALUMINUM/MAGNESIUM SUSP 30 ML UDC PO PRN (04:07)
[2020-09-08] MEDS ORDERED: ONDANSETRON INJ 2 MG/ML 2 ML VIAL IV PRN (04:07)
[2020-09-08 06:28] LABS: Basophils # (auto) 0.01 K/uL (0-0.2); Basophils % (auto) 0.1 %; Eosinophils # (auto) 0.03 K/uL (0-0.5); Eosinophils % (auto) 0.3 %; Hematocrit (blood only) 41.2 % (42-52); Hemoglobin 13.7 g/dL (14.0-18.0); Immature Granulocytes # (auto) 0.03 K/uL (0.00-0.02); Immature Granulocytes % (auto) 0.3 %; Lymphocytes # (auto) 2.24 K/uL (1.2-3.4); Lymphocytes % (auto) 19.5 %; Mean Corpuscular Hemoglobin 28.7 pg (25-34); Mean Corpuscular Hgb Conc 33.3 g/dL (32-36); Mean Corpuscular Volume 86.2 fL (80-100); Mean Platelet Volume 10.5 fL (7.4-10.4); Monocytes # (auto) 0.68 K/uL (0.11-0.59); Monocytes % (auto) 5.9 %; Neutrophils % (auto) 73.9 %; Platelet Count 164 K/uL (130-400); RDW Coefficient of Variation 14.7 % (11.5-14.5); RDW Standard Deviation 45.7 fL (36.4-46.3); Red Blood Count 4.78 M/uL (4.7-6.1); White Blood Count 11.49 K/uL (4.8-10.8)
--- NOTE | 2020-09-08 06:51 | XRay Report ---
XR chest 1V portable HISTORY: 44 years-old Male respiratory failure acute respiratory failure COMPARISON: Chest radiograph 08/18/2020, CTA chest 06/14/2020 TECHNIQUE: Portable AP view of the chest FINDINGS: Cardiac silhouette is enlarged. Single lead left subclavian pacer redemonstrated. Progressively worse marc pulmonary edema with layering pleural effusions and bibasilar opacities. No pneumothorax. Bones a ppear grossly intact. IMPRESSION: 1. Cardiomegaly with pulmonary edema. 2. Layering pleural effusions with bibasilar opacities suggestive of atelectasis versus pneumonitis. ACT 112: Negative or not required by law. The above report was generated using voice recognition software. It may contain grammatical, syntax o r spelling errors. Electronically signed by: Sony Irby M.D. 09/08/2020 6:50 AM
[2020-09-08 07:01] LABS: BUN Creatinine Ratio 11.3 (10-20); Calcium 8.2 mg/dl (8.5-10.1); Creatinine Clr Calc Pharmacy 138.9 ml/min; Est GFR (African American) 100.3 ml/min; Est GFR (Non-African American) 86.5 ml/min; Magnesium 1.8 mg/dl (1.8-2.4)
[2020-09-08 07:04] LABS: Albumin Globulin Ratio 0.7 (0.9-2); Bilirubin,Total 0.8 mg/dl (0.2-1); Globulin 4.1 gm/dl (2.5-4.0); Phosphorus 3.4 mg/dl (2.5-4.9); Total Protein 7.1 gm/dl (6.4-8.2)
--- NOTE | 2020-09-08 08:33 | Electrocardiogram Report ---
Test Reason : Blood Pressure : / mmHG Vent. Rate : 123 BPM Atrial Rate : 123 BPM P-R Int : 138 ms QRS Dur : 106 ms QT Int : 338 ms P-R-T Axes : -17 -74 109 degrees QTc Int : 483 ms Poor data quality, interpretation may be adversely affected Sinus tachycardia Left axis deviation Nonspecific T wave abnormality Lateral leads Abnormal ECG When compared with ECG of 18-AUG-2020 18:35, No significant change was found Confirmed by Martell Flores ([id number]) on 09/08/2020 8:32:36 AM Referred By: REFERRED SELF Confirmed By:Martell Flores
[2020-09-08] MEDS: ASPIRIN 81 MG ECTAB PO SCH (09:02)
[2020-09-08] MEDS: APIXABAN 5 MG TABLET PO SCH ×2 (09:02→20:14)
[2020-09-08] MEDS: ATORVASTATIN 10 MG TAB PO SCH (09:02)
[2020-09-08] MEDS: SACUBITRIL-VALSARTAN 97-103 MG TAB PO SCH ×2 (09:03→20:14)
[2020-09-08] MEDS: METOPROLOL SUCC 50MG EXT REL TAB PO SCH ×2 (09:03→20:14)
[2020-09-08] MEDS: FUROSEMIDE 40 MG/4 ML VIAL IV SCH ×2 (09:07→20:28)
[2020-09-08] MEDS ORDERED: CARBOHYDRATES FOR HYPOGLYCEMIA PO PRN (13:30)
[2020-09-08] MEDS ORDERED: DEXTROSE 50% 50 ML SYRINGE IV PRN (13:30)
[2020-09-08] MEDS ORDERED: GLUCAGON FOR INJ 1 MG VIAL IM PRN (13:30)
[2020-09-08] MEDS ORDERED: GLUCOSE 40% GEL 15 GM TUBE PO PRN (13:30)
[2020-09-08] MEDS ORDERED: GLUCOSE 10 TABS/TUBE PO PRN (13:30)
[2020-09-08] MEDS: INSULIN ASPART 100 UNITS/ML 3 ML PEN SC SCH ×3 (18:20→20:30)
--- NOTE | 2020-09-08 20:42 | Billing Data ---
Date of Service September 08, 2020 Coding Level of Care Code 15252 Initial Inpt Care Lvl 3
--- NOTE | 2020-09-09 00:11 | Hospitalist Progress Note ---
Date of Service September 08, 2020 Assessment & Plan (1) Acute and chronic respiratory failure with hypoxia: (2) Acute on chronic heart failure with reduced ejection fraction and diastolic dysfunction: (3) NICM (nonischemic cardiomyopathy): (4) Obstructive sleep apnea: (5) Hypertension: (6) COPD (chronic obstructive pulmonary disease): (7) Diabetes mellitus type II, uncontrolled: (8) HTN (hypertension): (9) Intellectual disability: (10) Morbid obesity with BMI of 50.0-59.9, adult: (11) Noncompliance: Plan: 1. acute resp failure 2nd to acute/chronic systolic/diastolic CHF. Historically Alok has been noncompliant with medications - especially his diuretics - and diet. Cont diuresis with IV lasix BID. Wean BIPAP to [place] O2 then RA. 2. labs in am. 3. adjust BP meds for optimal BP control. 4. novolog sliding scale for DM. 5. daily weights. 6. no evidence of COPD flare or infectious process despite minimally elevated lactate at admission. Admission and Anticipated Discharge Date Admission Date: September 08, 2020 Subjective pt on BIPAP during my visit he c/o dyspnea declined wanting a trial off of BIPAP to [place] O2 it was difficult to communicate with him because of the BIPAP mask denied any chest pain or abdominal pain, however he did state that he had had heartburn symptoms just prior to coming to the hospital he was eating a hoagie when the heartburn occurred tele overnight wnl Review of Systems Review of Systems: gen - c/o weakness in his legs - chronic cardio - no chest pain pulm - mild-moderate cough GI - no vomiting Physical Exam Physical Exam: gen - wearing BIPAP, but not in distress, a/o x 3 neck - difficult to assess for JVD heart - RRR, s1 s2, no murmur lungs - rales bases b/l, no wheeze abd - obese, BS+, NT, soft ext - <1+ edema b/l psych - a/o x 3 Results & Data Results & Data ([facility]) Vital Signs (Past 12 Hours) Vital Signs Temp Pulse Pulse Resp BP Pulse Ox 09/09/20 00:05 96 H 09/08/20 22:57 36.4 C L 88 22 136/92 09/08/20 19:17 38.6 C H 97 H 22 135/80 92 09/08/20 15:57 98 H 09/08/20 15:35 36.7 C 77 21 146/101 H 96 09/08/20 14:38 74 26 H 94 Laboratory Results Laboratory Results - last 24 hr 09/07/20 09/07/20 09/07/20 23:22 23:22 23:32 WBC RBC Hgb Hct MCV MCH MCHC RDW Std Deviation RDW Coeff of Zoltan Plt Count MPV Immature Gran % (Auto) Neut % (Auto) Lymph % (Auto) Cedar % (Auto) Eos % (Auto) Baso % (Auto) Neut # (Auto) Lymph # (Auto) Cedar # (Auto) Eos # (Auto) Baso # (Auto) Immature Gran # (Auto) ESR 23 H Sodium Potassium Chloride Carbon Dioxide Anion Gap BUN Creatinine Est Cr Clr Drug Dosing Est GFR ( Amer) Est GFR (Non-Af Amer) BUN/Creatinine Ratio Glucose POC Glucose Lactate Calcium Phosphorus Magnesium Total Bilirubin AST ALT Alkaline Phosphatase Total Protein Albumin Globulin Albumin/Globulin Ratio Urine Color Dark Yellow Urine Appearance Clear Urine pH 5.0 Ur Specific [place] 1.029 Urine Protein 2+ H Urine Glucose (UA) 2+ H Urine Ketones Negative Urine Blood Trace H Urine Nitrite Negative Urine Bilirubin Negative Urine Urobilinogen Negative Ur Leukocyte Esterase Trace H Urine WBC (Auto) 5-10 H Urine RBC (Auto) 0-4 U Hyaline Cast (Auto) 1-5 U Epithel Cells (Auto) >30 H Urine Bacteria (Auto) Negative Adenovirus (PCR) B. pertussis DNA (PCR) B.parapertussis DNA PCR Lyme Disease IgG Ab Negative Lyme Disease IgM Ab Negative C. pneumoniae DNA (PCR) Coronavirus OC43 (PCR) Coronavirus HKU1 (PCR) Coronavirus 229E (PCR) COVID-19 Eval Order SARS-CoV-2 (PCR) Coronavirus NL63 (PCR) Human Metapneumovir PCR Influenza Type A (PCR) Influenza Type B (PCR) M. pneumoniae (PCR) Parainfluenza 1 (PCR) Parainfluenza 2 (PCR) Parainfluenza 3 (PCR) Parainfluenza 4 (PCR) RSV (PCR) Entero/Rhino (PCR) 09/07/20 09/08/20 09/08/20 23:44 00:00 00:00 WBC RBC Hgb Hct MCV MCH MCHC RDW Std Deviation RDW Coeff of Zoltan Plt Count MPV Immature Gran % (Auto) Neut % (Auto) Lymph % (Auto) Cedar % (Auto) Eos % (Auto) Baso % (Auto) Neut # (Auto) Lymph # (Auto) Cedar # (Auto) Eos # (Auto) Baso # (Auto) Immature Gran # (Auto) ESR Sodium Potassium Chloride Carbon Dioxide Anion Gap BUN Creatinine Est Cr Clr Drug Dosing Est GFR ( Amer) Est GFR (Non-Af Amer) BUN/Creatinine Ratio Glucose POC Glucose Lactate 2.4 H* Calcium Phosphorus Magnesium Total Bilirubin AST ALT Alkaline Phosphatase Total Protein Albumin Globulin Albumin/Globulin Ratio Urine Color Urine Appearance Urine pH Ur Specific [place] Urine Protein Urine Glucose (UA) Urine Ketones Urine Blood Urine Nitrite Urine Bilirubin Urine Urobilinogen Ur Leukocyte Esterase Urine WBC (Auto) Urine RBC (Auto) U Hyaline Cast (Auto) U Epithel Cells (Auto) Urine Bacteria (Auto) Adenovirus (PCR) Not Detected B. pertussis DNA (PCR) Not Detected B.parapertussis DNA PCR Not Detected Lyme Disease IgG Ab Lyme Disease IgM Ab C. pneumoniae DNA (PCR) Not Detected Coronavirus OC43 (PCR) Not Detected Coronavirus HKU1 (PCR) Not Detected Coronavirus 229E (PCR) Not Detected COVID-19 Eval Order RESPNP at [facility] SARS-CoV-2 (PCR) Not Detected Coronavirus NL63 (PCR) Not Detected Human Metapneumovir PCR Not Detected Influenza Type A (PCR) Not Detected Influenza Type B (PCR) Not Detected M. pneumoniae (PCR) Not Detected Parainfluenza 1 (PCR) Not Detected Parainfluenza 2 (PCR) Not Detected Parainfluenza 3 (PCR) Not Detected Parainfluenza 4 (PCR) Not Detected RSV (PCR) Not Detected Entero/Rhino (PCR) Not Detected 09/08/20 09/08/20 09/08/20 01:49 05:56 05:56 WBC 11.49 H RBC 4.78 Hgb 13.7 L Hct 41.2 L MCV 86.2 MCH 28.7 MCHC 33.3 RDW Std Deviation 45.7 RDW Coeff of Zoltan 14.7 H Plt Count 164 MPV 10.5 H Immature Gran % (Auto) 0.3 Neut % (Auto) 73.9 Lymph % (Auto) 19.5 Cedar % (Auto) 5.9 Eos % (Auto) 0.3 Baso % (Auto) 0.1 Neut # (Auto) 8.50 H Lymph # (Auto) 2.24 Cedar # (Auto) 0.68 H Eos # (Auto) 0.03 Baso # (Auto) 0.01 Immature Gran # (Auto) 0.03 H ESR Sodium 140 Potassium 4.0 Chloride 109 H Carbon Dioxide 30 Anion Gap 1.0 L BUN 12 Creatinine 1.05 Est Cr Clr Drug Dosing 138.9 Est GFR ( Amer) 100.3 Est GFR (Non-Af Amer) 86.5 BUN/Creatinine Ratio 11.3 Glucose 235 H POC Glucose Lactate 1.7 Calcium 8.2 L Phosphorus 3.4 Magnesium 1.8 Total Bilirubin 0.8 AST 28 ALT 43 Alkaline Phosphatase 88 Total Protein 7.1 Albumin 3.0 L Globulin 4.1 H Albumin/Globulin Ratio 0.7 L Urine Color Urine Appearance Urine pH Ur Specific [place] Urine Protein Urine Glucose (UA) Urine Ketones Urine Blood Urine Nitrite Urine Bilirubin Urine Urobilinogen Ur Leukocyte Esterase Urine WBC (Auto) Urine RBC (Auto) U Hyaline Cast (Auto) U Epithel Cells (Auto) Urine Bacteria (Auto) Adenovirus (PCR) B. pertussis DNA (PCR) B.parapertussis DNA PCR Lyme Disease IgG Ab Lyme Disease IgM Ab C. pneumoniae DNA (PCR) Coronavirus OC43 (PCR) Coronavirus HKU1 (PCR) Coronavirus 229E (PCR) COVID-19 Eval Order SARS-CoV-2 (PCR) Coronavirus NL63 (PCR) Human Metapneumovir PCR Influenza Type A (PCR) Influenza Type B (PCR) M. pneumoniae (PCR) Parainfluenza 1 (PCR) Parainfluenza 2 (PCR) Parainfluenza 3 (PCR) Parainfluenza 4 (PCR) RSV (PCR) Entero/Rhino (PCR) 09/08/20 09/08/20 09/08/20 05:56 12:29 16:33 WBC RBC Hgb Hct MCV MCH MCHC RDW Std Deviation RDW Coeff of Zoltan Plt Count MPV Immature Gran % (Auto) Neut % (Auto) Lymph % (Auto) Cedar % (Auto) Eos % (Auto) Baso % (Auto) Neut # (Auto) Lymph # (Auto) Cedar # (Auto) Eos # (Auto) Baso # (Auto) Immature Gran # (Auto) ESR Sodium Potassium Chloride Carbon Dioxide Anion Gap BUN Creatinine Est Cr Clr Drug Dosing Est GFR ( Amer) Est GFR (Non-Af Amer) BUN/Creatinine Ratio Glucose POC Glucose 242 H 219 H 186 H Lactate Calcium Phosphorus Magnesium Total Bilirubin AST ALT Alkaline Phosphatase Total Protein Albumin Globulin Albumin/Globulin Ratio Urine Color Urine Appearance Urine pH Ur Specific [place] Urine Protein Urine Glucose (UA) Urine Ketones Urine Blood Urine Nitrite Urine Bilirubin Urine Urobilinogen Ur Leukocyte Esterase Urine WBC (Auto) Urine RBC (Auto) U Hyaline Cast (Auto) U Epithel Cells (Auto) Urine Bacteria (Auto) Adenovirus (PCR) B. pertussis DNA (PCR) B.parapertussis DNA PCR Lyme Disease IgG Ab Lyme Disease IgM Ab C. pneumoniae DNA (PCR) Coronavirus OC43 (PCR) Coronavirus HKU1 (PCR) Coronavirus 229E (PCR) COVID-19 Eval Order SARS-CoV-2 (PCR) Coronavirus NL63 (PCR) Human Metapneumovir PCR Influenza Type A (PCR) Influenza Type B (PCR) M. pneumoniae (PCR) Parainfluenza 1 (PCR) Parainfluenza 2 (PCR) Parainfluenza 3 (PCR) Parainfluenza 4 (PCR) RSV (PCR) Entero/Rhino (PCR) 09/08/20 20:02 WBC RBC Hgb Hct MCV MCH MCHC RDW Std Deviation RDW Coeff of Zoltan Plt Count MPV Immature Gran % (Auto) Neut % (Auto) Lymph % (Auto) Cedar % (Auto) Eos % (Auto) Baso % (Auto) Neut # (Auto) Lymph # (Auto) Cedar # (Auto) Eos # (Auto) Baso # (Auto) Immature Gran # (Auto) ESR Sodium Potassium Chloride Carbon Dioxide Anion Gap BUN Creatinine Est Cr Clr Drug Dosing Est GFR ( Amer) Est GFR (Non-Af Amer) BUN/Creatinine Ratio Glucose POC Glucose 206 H Lactate Calcium Phosphorus Magnesium Total Bilirubin AST ALT Alkaline Phosphatase Total Protein Albumin Globulin Albumin/Globulin Ratio Urine Color Urine Appearance Urine pH Ur Specific [place] Urine Protein Urine Glucose (UA) Urine Ketones Urine Blood Urine Nitrite Urine Bilirubin Urine Urobilinogen Ur Leukocyte Esterase Urine WBC (Auto) Urine RBC (Auto) U Hyaline Cast (Auto) U Epithel Cells (Auto) Urine Bacteria (Auto) Adenovirus (PCR) B. pertussis DNA (PCR) B.parapertussis DNA PCR Lyme Disease IgG Ab Lyme Disease IgM Ab C. pneumoniae DNA (PCR) Coronavirus OC43 (PCR) Coronavirus HKU1 (PCR) Coronavirus 229E (PCR) COVID-19 Eval Order SARS-CoV-2 (PCR) Coronavirus NL63 (PCR) Human Metapneumovir PCR Influenza Type A (PCR) Influenza Type B (PCR) M. pneumoniae (PCR) Parainfluenza 1 (PCR) Parainfluenza 2 (PCR) Parainfluenza 3 (PCR) Parainfluenza 4 (PCR) RSV (PCR) Entero/Rhino (PCR) PG Care Time/CCT Total # of Minutes Spent Total Time Spent with Patient: Total time spent is greater than 50% in coordination of care (as documented) at patient's floor/unit and/or counseling patient: Coding Level of Care Code 89900 Subseq Hosp Care Lvl 2 Diagnoses Acute and chronic respiratory failure with hypoxia J96.21 Acute on chronic heart failure with reduced ejection fraction and diastolic dysfunction I50.43 NICM (nonischemic cardiomyopathy) I42.8 Obstructive sleep apnea G47.33 Hypertension I10 Hypertension type: essential hypertension COPD (chronic obstructive pulmonary disease) J44.9 COPD type: unspecified COPD Diabetes mellitus type II, uncontrolled E11.65 Glycemic state: with hyperglycemia HTN (hypertension) I10 Hypertension type: unspecified Intellectual disability F79 Morbid obesity with BMI of 50.0-59.9, adult E66.01; Z68.43 Noncompliance Z91.19 (1) Diabetes mellitus type II, uncontrolled Glycemic state: with hyperglycemia Qualified Code(s): E11.65 - Type 2 diabetes mellitus with hyperglycemia (2) COPD (chronic obstructive pulmonary disease) COPD type: unspecified COPD Qualified Code(s): J44.9 - Chronic obstructive pulmonary disease, unspecified (3) Hypertension Hypertension type: essential hypertension Qualified Code(s): I10 - Essential (primary) hypertension (4) HTN (hypertension) Hypertension type: unspecified Qualified Code(s): I10 - Essential (primary) hypertension
[2020-09-09] MEDS: INSULIN ASPART 100 UNITS/ML 3 ML PEN SC SCH ×4 (08:03→21:29)
[2020-09-09 08:22] LABS: BUN Creatinine Ratio 11.7 (10-20); Calcium 8.1 mg/dl (8.5-10.1); Creatinine Clr Calc Pharmacy 141.4 ml/min; Est GFR (African American) 106.4 ml/min; Est GFR (Non-African American) 91.8 ml/min; Magnesium 1.7 mg/dl (1.8-2.4); Potassium 3.7 mmol/L (3.5-5.1)
[2020-09-09] MEDS: METOPROLOL SUCC 50MG EXT REL TAB PO SCH ×2 (08:30→21:23)
[2020-09-09] MEDS: APIXABAN 5 MG TABLET PO SCH ×2 (08:30→21:22)
[2020-09-09] MEDS: ASPIRIN 81 MG ECTAB PO SCH (08:30)
[2020-09-09] MEDS: ATORVASTATIN 10 MG TAB PO SCH (08:30)
[2020-09-09] MEDS: SACUBITRIL-VALSARTAN 97-103 MG TAB PO SCH ×2 (08:30→21:23)
[2020-09-09] MEDS: FUROSEMIDE 40 MG/4 ML VIAL IV SCH ×2 (08:44→21:22)
--- NOTE | 2020-09-09 22:03 | Hospitalist Progress Note ---
Date of Service September 09, 2020 Assessment & Plan (1) Acute and chronic respiratory failure with hypoxia: (2) Acute on chronic heart failure with reduced ejection fraction and diastolic dysfunction: (3) NICM (nonischemic cardiomyopathy): (4) Obstructive sleep apnea: (5) Hypertension: (6) COPD (chronic obstructive pulmonary disease): (7) Diabetes mellitus type II, uncontrolled: (8) Intellectual disability: (9) Morbid obesity with BMI of 50.0-59.9, adult: (10) Noncompliance: Plan: 1. acute resp failure 2nd to acute/chronic systolic/diastolic CHF. Historically Alok has been noncompliant with medications - especially his diuretics - and diet. Cont diuresis with IV lasix BID. Now on nasal cannula. Will toninue to diurese. Patient is about 4.8 liters negative. 2. labs in am. 3. adjust BP meds for optimal BP control. 4. novolog sliding scale for DM. 5. daily weights. 6. no evidence of COPD flare or infectious process despite minimally elevated lactate at admission. Admission and Anticipated Discharge Date Admission Date: September 08, 2020 Subjective Patient on nasal cannula when I came in the room. Patient reports breathing better. He has no new complaints at this time. Review of Systems Review of Systems: All systems reviewed & are unremarkable except as noted in HPI & below Physical Exam Physical Exam: gen - sitting upright on nasal cannula, a/o x 3 neck - difficult to assess for JVD heart - RRR, s1 s2, no murmur lungs - rales bases b/l, no wheeze abd - obese, BS+, NT, soft ext - <1+ edema b/l psych - a/o x 3 Results & Data Results & Data ([facility]) Vital Signs (Past 12 Hours) Vital Signs Temp Pulse Pulse Resp BP BP Pulse Ox 09/09/20 19:48 36.8 C 71 24 108/61 94 09/09/20 16:42 70 09/09/20 15:50 36.5 C 73 18 105/67 94 09/09/20 11:51 36.9 C 76 20 132/84 97 PG Care Time/CCT Total # of Minutes Spent Total Time Spent with Patient: Total time spent is greater than 50% in coordin ation of care (as documented) at patient's floor/unit and/or counseling patient: Coding Level of Care Code 22731 Subseq Hosp Care Lvl 2 Diagnoses Acute and chronic respiratory failure with hypoxia J96.21 Acute on chronic heart failure with reduced ejection fraction and diastolic dysfunction I50.43 NICM (nonischemic cardiomyopathy) I42.8 Obstructive sleep apnea G47.33 Hypertension I10 Hypertension type: essential hypertension COPD (chronic obstructive pulmonary disease) J44.9 COPD type: unspecified COPD Diabetes mellitus type II, uncontrolled E11.65 Glycemic state: with hyperglycemia Intellectual disability F79 Morbid obesity with BMI of 50.0-59.9, adult E66.01; Z68.43 Noncompliance Z91.19 (1) Hypertension Hypertension type: essential hypertension Qualified Code(s): I10 - Essential (primary) hypertension (2) COPD (chronic obstructive pulmonary disease) COPD type: unspecified COPD Qualified Code(s): J44.9 - Chronic obstructive pulmonary disease, unspecified (3) Diabetes mellitus type II, uncontrolled Glycemic state: with hyperglycemia Qualified Code(s): E11.65 - Type 2 diabetes mellitus with hyperglycemia
[2020-09-10 05:41] LABS: Hematocrit (blood only) 44.2 % (42-52); Hemoglobin 14.9 g/dL (14.0-18.0); Mean Corpuscular Hemoglobin 29.2 pg (25-34); Mean Corpuscular Hgb Conc 33.7 g/dL (32-36); Mean Corpuscular Volume 86.7 fL (80-100); Platelet Count 205 K/uL (130-400); RDW Coefficient of Variation 14.8 % (11.5-14.5); RDW Standard Deviation 47.1 fL (36.4-46.3); White Blood Count 9.26 K/uL (4.8-10.8)
[2020-09-10 06:02] LABS: BUN Creatinine Ratio 17.7 (10-20); Calcium 8.7 mg/dl (8.5-10.1); Creatinine Clr Calc Pharmacy 120.8 ml/min; Est GFR (Non-African American) 75.9 ml/min; Potassium 3.5 mmol/L (3.5-5.1)
[2020-09-10] MEDS: INSULIN ASPART 100 UNITS/ML 3 ML PEN SC SCH ×2 (07:59→11:45)
[2020-09-10] MEDS: APIXABAN 5 MG TABLET PO SCH (08:01)
[2020-09-10] MEDS: ASPIRIN 81 MG ECTAB PO SCH (08:02)
[2020-09-10] MEDS: ATORVASTATIN 10 MG TAB PO SCH (08:02)
[2020-09-10] MEDS: FUROSEMIDE 40 MG/4 ML VIAL IV SCH (08:03)
[2020-09-10] MEDS: METOPROLOL SUCC 50MG EXT REL TAB PO SCH (08:04)
[2020-09-10] MEDS: SACUBITRIL-VALSARTAN 97-103 MG TAB PO SCH (08:04)
--- NOTE | 2020-09-11 07:36 | Discharge Summary ---
Date of Service September 10, 2020 Admission HPI Per Admitting Provider Alok Huff is a 44y/o M with complex past medical history who presents for persistent worsening of shortness of breath over the last two days. Of note, patient was recently discharged from [facility] earlier this month for similar episode. Over the last two days he has increasing shortness of breath, and feeling of winded with minimal exertion, has not had the same lightheadedness that he was having previously. Since discharge he states he has been sticking to the salt restricted diet, and attempting to control the amount of fluid he takes in. Has not been utilizing the torsemide over this time, as it will frequently make him have to urinate too much and with him getting winded so quickly he tries to avoid extra trips. Principal Diagnosis Acute systolic and diastolic CHF Discharge Exam gen - sitting upright on nasal cannula, a/o x 3 neck - difficult to assess for JVD heart - RRR, s1 s2, no murmur lungs - rales bases b/l, no wheeze abd - obese, BS+, NT, soft ext - <1+ edema b/l psych - a/o x 3 Discharge Data Allergies Allergy/AdvReac Type Severity Reaction Status Date / Time ceftriaxone Allergy Severe SHORTNESS Verified 09/07/20 23:21 OF BREATH lidocaine Allergy Severe SHORTNESS Verified 09/07/20 23:21 OF BREATH, diaphoretic, hives procaine Allergy Severe SHORTNESS Verified 09/07/20 23:21 OF BREATH, diaphoretic, hives amoxicillin Allergy Intermediate HIVES/FACIAL Verified 09/07/20 23:21 SWELLING clavulanic acid Allergy Intermediate HIVES/FACIAL Verified 09/07/20 23:21 SWELLING lisinopril Allergy Intermediate HIVES Verified 09/07/20 23:21 acetaminophen AdvReac Mild NAUSEA Verified 09/07/20 23:21 albuterol AdvReac Mild proair Verified 09/07/20 23:21 "trouble taking breaths" Fish Containing Products AdvReac Unknown Verified 09/07/20 23:21 Consultations 09/08/20 00:15 ED Decision to Admit Stat Hospital Course (1) Acute and chronic respiratory failure with hypoxia: (2) Acute on chronic heart failure with reduced ejection fraction and diastolic dysfunction: (3) NICM (nonischemic cardiomyopathy): (4) Obstructive sleep apnea: (5) Hypertension: (6) COPD (chronic obstructive pulmonary disease): (7) Diabetes mellitus type II, uncontrolled: (8) Intellectual disability: (9) Morbid obesity with BMI of 50.0-59.9, adult: (10) Noncompliance: 1. acute resp failure 2nd to acute/chronic systolic/diastolic CHF. Historically Alok has been noncompliant with medications - especially his diuretics - and diet. Patient is negative 6000. Treated with IV lasix BID. will resume home oxygen and resume home emds. Recommended diet. Now on nasal cannula. Will toninue to diurese. 2. adjust BP meds for optimal BP control. 3. novolog sliding scale for DM. 4 daily weights. 5. no evidence of COPD flare or infectious process despite minimally elevated lactate at admission. Total Time Total Time Spent Total Time Spent (In Minutes): 32 Discharge Plan Discharge Items Patient Disposition: Home - Self-Care Reason For Visit: CHF EXACERBATION Discharge Diagnosis: CHF exacerbation Activity: Resume your previous activity Non-emergency contact: Primary Care Provider Call non-emergency contact if: you have any medication questions Follow-up/Referrals: Richa Burr CRNP [Primary Care Provider] - 09/13/20 11:15 am Diet: Carb Consistent or DM2 and Low Sodium (2gm) Addtl Attending Provider Instructions: Call 911 and go to the Emergency Room if: * You have tightness or pain in your chest that does not go away with rest or Nitroglycerin * You are very short of breath even with rest Call your doctor if any of the following symptoms or problems start or get worse: * Shortness of breath or difficulty breathing * Wake up at night short of breath * Chest pain * Cough * Swelling of your hands, fee, or legs * More fatigued or tired with your normal activity * Palpitations - sudden fast heart beats WEIGHT * Weigh yourself every morning after using the bathroom. * Use the same scale. * Wear the same amount of clothing. * Write your weight down on your chart. * Call your doctor if you gain more than 2-3 pounds in 1-2 days. MEDICATIONS * Use this discharge instruction sheet for instructions. * Take your medications at the time your doctor ordered. * Do not skip a dose of your medicines. * If you miss a dose of medicine, take as soon as possible, but DO NOT DOUBLE A DOSE. * Read your medicine information when you get home. * Know all of the side effects of your medicine. * Call your doctor's office if you have any side effects. * Be sure all of your doctors know what medicine and herbs you take (including cold, flu, and herbal medicine). * Pain Medicine: If you do not get relief from your pain, please call your doctor for help. Take the following with you to your follow-up doctor appointments: * Weight Chart * Medication List * List of questions Do not drink excessive alcohol, beer or wine. Pending Studies at Discharge: No Stand-Alone Forms: My [facility] ITN, Smoking Cessation Medications and DC Order Prescriptions: Continued Trulicity 1.5 mg/0.5 mL pen injector 1.5 mg SUBCUT WK Qty: 2 RF: 5 (DME) OneTouch Verio test strips Strip See Rx Instructions .ROUTE .MEDSUPPLY Qty: 200 RF: 3 (DME) blood-glucose meter [OneTouch Verio Flex meter] Misc See Rx Instructions .ROUTE .MEDSUPPLY Qty: 1 RF: 0 Eliquis 5 mg tablet 5 mg PO BID RF: 0 nystatin 100,000 unit/gram ointment 1 applic topical BID Qty: 15 RF: 0 (DME) Oxygen Home Liters Per Minute See Rx Instructions .ROUTE .MEDSUPPLY Qty: 1 RF: 0 Entresto 97-103 mg tablet 1 tab PO BID RF: 0 atorvastatin 10 mg tablet 10 mg PO DAILY RF: 0 metoprolol succinate 100 mg tablet extended release 24 hr 100 mg PO BID Qty: 60 RF: 5 aspirin [Aspirin Low Dose] 81 mg tablet,delayed release (DR/EC) 81 mg PO DAILY RF: 0 nitroglycerin [Nitrostat] 0.4 mg tablet, sublingual 0.4 mg sublingual UD PRN (Reason: Chest Pain) RF: 0 cholecalciferol (vitamin D3) [Vitamin D3] 50 mcg (2,000 unit) Tablet 50 mcg PO BID RF: 0 torsemide 20 mg tablet 80 mg PO BID RF: 0 spironolactone [Aldactone] 25 mg tablet 50 mg PO QAM Qty: 30 RF: 0 Discharge Orders: Discharge Order (Routine); Ordered 09/10/20 Ordered By: Shemar Sky Admission Data Admit Date/Time: 09/08/20 01:12 Attending Provider: Shemar Sky Admit Provider: Edward Willson Primary Care Provider: Richa Burr Other Providers: Noé Jaquez Other Interventions: Discharge Summary Assessment (RN) Last Done: 09/10/20 14:48 Coding Level of Care Code D/C DAY MANAGEMENT >30 MINS Diagnoses Acute and chronic respiratory failure with hypoxia J96.21 Acute on chronic heart failure with reduced ejection fraction and diastolic dysfunction I50.43 NICM (nonischemic cardiomyopathy) I42.8 Obstructive sleep apnea G47.33 Hypertension I10 Hypertension type: essential hypertension COPD (chronic obstructive pulmonary disease) J44.9 COPD type: unspecified COPD Diabetes mellitus type II, uncontrolled E11.65 Glycemic state: with hyperglycemia Intellectual disability F79 Morbid obesity with BMI of 50.0-59.9, adult E66.01; Z68.43 Noncompliance Z91.19 Time Spent (min) 32
== END 2020-09-10 15:30 | disposition home or self-care (01) ==
LOC: ED 22:45 → INTOOBSV 09-08 01:12 → 2S 09-08 01:12 → SUATTDRO 09-08 01:12 → 2S 09-08 02:22 → 1E 09-10 00:15

== ENCOUNTER 2020-10-02 06:11 | Inpatient (IN) ==
[2020-10-02] MEDS ORDERED: RAPID SEQUENCE INDUCTION BAG ONE (06:14)
[2020-10-02] MEDS ORDERED: ALBUT/IPRATROP 3MG/0.5MG NEB 3 ML VIAL NEB STA (06:17)
[2020-10-02] MEDS ORDERED: ALBUT/IPRATROP 3MG/0.5MG NEB 3 ML VIAL ONE (06:18)
[2020-10-02] MEDS ORDERED: FUROSEMIDE 40 MG/4 ML VIAL IV STA ×2 (06:33→07:25)
[2020-10-02] MEDS ORDERED: NITROGLYCERIN 2% OINTMENT 30GM TUBE EXT STA ×2 (06:33→08:00)
[2020-10-02 06:41] LABS: iSTAT Arterial Blood Gas HCO3 23 meg/L (19-24); iSTAT Arterial Blood Gas pCO2 65 mmHg (35-46); iSTAT Arterial Blood Gas pH 7.16 (7.35-7.45); iSTAT Arterial Blood Gas pO2 92 mmHg (80-95); iSTAT Carbon Dioxide 25 mmol/L (24-31); iSTAT Hematocrit 48 % (42-52); iSTAT Hemoglobin 16.3 g/dl (14.0-18.0); iSTAT Potassium 4.3 mmol/L (3.3-5.0); iSTAT Sodium 138 mmol/L (135-144)
--- NOTE | 2020-10-02 06:47 | Emergency Department Note ---
History of Present Illness General Chief complaint: Respiratory Problems Stated complaint: RESPIRATORY DIFFICULTY Time Seen by Provider: 10/02/20 06:33 History of Present Illness Maximum Pain Intensity: 0 This 44 yo presents to the ER complaining of acute shortness of breath he was noncompliant with his medications with a history of CHF Location: Chest Quality: Hard to breathe Severity: Severe Duration: Last night Timing: Last night Context: Patient was concerned and came in Modifying factors: better with oxygen; worse with activity Patient feels like he is back in heart failure. He states he is been taking his diuretics. He has retained weight. EMS states his sats were in the 80s on nasal cannula that he wore at home. He was quite short of breath. He came in on CPAP. He was immediately placed on BiPAP. Patient complains of chest pain and shortness of breath. He is received both Covid vaccines. Patient denies fevers, flulike illness, abdominal pain. Home Medications Medication Instructions Recorded Confirmed Type nitroglycerin 0.4 mg sublingual 0.4 mg SUBLINGUAL UD PRN 04/24/19 10/01/20 History tablet (Nitrostat) cholecalciferol (vitamin D3) 50 50 mcg PO BID 10/04/19 10/01/20 History mcg (2,000 unit) tablet (Vitamin D3) dulaglutide 1.5 mg/0.5 mL 1.5 mg SUBCUT WK #2 ml 04/21/20 10/02/20 Rx subcutaneous pen injector (Trulicity) metoprolol succinate 100 mg 100 mg PO BID #60 tab 06/30/20 10/01/20 Rx tablet,extended release 24 hr aspirin 81 mg tablet,delayed 81 mg PO DAILY tab 07/10/20 10/01/20 History release (Aspirin Low Dose) apixaban 5 mg tablet (Eliquis) 5 mg PO BID tab 08/10/20 10/01/20 History atorvastatin 10 mg tablet 10 mg PO DAILY 08/10/20 10/01/20 History sacubitril 97 mg-valsartan 103 mg 1 tab PO BID 08/10/20 10/01/20 History tablet (Entresto) torsemide 20 mg tablet 80 mg PO BID 08/18/20 10/01/20 History spironolactone 25 mg tablet 50 mg PO QAM #30 tab 08/23/20 10/01/20 Rx (Aldactone) budesonide-formoterol HFA 160 2 inh INHALATION BID #10.2 g 09/27/20 10/02/20 Rx mcg-4.5 mcg/actuation aerosol inhaler (Symbicort) esomeprazole magnesium 20 mg 20 mg PO DAILY #30 cap 09/28/20 10/01/20 Rx capsule,delayed release (Nexium) Allergies Allergy/AdvReac Type Severity Reaction Status Date / Time ceftriaxone Allergy Severe SHORTNESS Verified 10/02/20 08:21 OF BREATH lidocaine Allergy Severe SHORTNESS Verified 10/02/20 08:21 OF BREATH, diaphoretic, hives procaine Allergy Severe SHORTNESS Verified 10/02/20 08:21 OF BREATH, diaphoretic, hives amoxicillin Allergy Intermediate HIVES/FACIAL Verified 10/02/20 08:21 SWELLING clavulanic acid Allergy Intermediate HIVES/FACIAL Verified 10/02/20 08:21 SWELLING lisinopril Allergy Intermediate HIVES Verified 10/02/20 08:21 acetaminophen AdvReac Mild NAUSEA Verified 10/02/20 08:21 albuterol AdvReac Mild proair Verified 10/02/20 08:21 "trouble taking breaths" Fish Containing Products AdvReac Unknown Verified 10/02/20 08:21 Past Med/Surg History Medical History Cellulitis of neck Chronic respiratory failure Dilatation of thoracic aorta Fatty liver Hearing loss of both ears Hypoxia Iliac aneurysm Left-sided weakness Lung nodule NICM (nonischemic cardiomyopathy) Pt admitted for elective ICD. Underwent procedure without any complications monitored over night and discharged home. Obstructive sleep apnea SOB (shortness of breath) Umbilical hernia Vitamin D insufficiency Previously deficient, taking Vit D supplementation Surgical History History of carpal tunnel surgery History of cholecystectomy S/P tonsillectomy Family History Father , age 57 of an NH. Heart disease Myocardial infarction Mother , age 67 of a ruptured neck vessel Sudden Other Depression Lung disease No pertinent family history Denies family history of Ovarian cancer Prostate cancer Breast cancer Colorectal cancer Social History Smoking Status: Unknown if ever smoked Tobacco Type: Cigarettes Age Started Using Tobacco: 14; Age Quit Using Tobacco: 18; Cigarettes Per Day: 40-50; Second Hand Exposure: No; Hx Alcohol Use: Yes Alcohol type: other Hx Substance Use: No Preferred Language: Wallisian Communication Ability: Effective Visual Impairment: No Limitations Hearing Ability: Normal Black Pickler Required: No Beliefs That Will Affect Care: None marital status: Current Living Situation: Spouse current occupational status: unemployed How many Children do You have: 0 Feels Safe at Home: Yes Childhood Exposure to Second-Hand Smoke: Yes Dental Care, Regularly: Yes Physical Activity Frequency: Does not Exercise Assistive Devices: Oxygen - at Night and Wheelchair Review of Systems A total of 10 systems reviewed and were otherwise negative Physical Exam Vital Signs Vital Signs - 24 hr 10/02/20 06:18 10/02/20 06:20 10/02/20 06:21 Temperature Temperature Source Pulse Rate 142 H Pulse Rate [Right Radial] 138 H Pulse Rate from SpO2 Sensor 143 H Respiratory Rate 27 H 32 H Respiratory Effort / Characteristics Spontaneous Labored Short of Breath Respiratory Depth Respiratory Pattern Blood Pressure Blood Pressure Mean Blood Pressure Position Pulse Oximetry 90 88 L 92 Oxygen Delivery Method CPAP BiPAP Fraction of Inspired Oxygen 70 Sepsis Recent Fever Within 48 Hours Sepsis New/Unexplained Change in Mental Status Sepsis Action Taken by Nursing Fraction of Inspired Oxygen - Titration 70 Pulse Oximetry Post Tiitration 93 10/02/20 06:25 10/02/20 06:32 10/02/20 06:35 Temperature 36.6 C Temperature Source Axillary Pulse Rate 138 H 140 H Pulse Rate [Right Radial] Pulse Rate from SpO2 Sensor 139 H Respiratory Rate 30 H 64 H 35 H Respiratory Effort / Characteristics Labored Short of Breath Spontaneous Labored Short of Breath Respiratory Depth Shallow Deep Respiratory Pattern Tachypnea Tachypnea Blood Pressure Blood Pressure Mean Blood Pressure Position Lying Pulse Oximetry 90 90 92 Oxygen Delivery Method BiPAP Fraction of Inspired Oxygen 70 Sepsis Recent Fever Within 48 Hours No Sepsis New/Unexplained Change in Mental Status No Sepsis Action Taken by Nursing No Action Required Fraction of Inspired Oxygen - Titration Pulse Oximetry Post Tiitration 10/02/20 06:45 10/02/20 07:00 10/02/20 07:02 Temperature Temperature Source Pulse Rate 134 H 122 H Pulse Rate [Right Radial] Pulse Rate from SpO2 Sensor 133 H 118 H Respiratory Rate 31 H 43 H 45 H Respiratory Effort / Characteristics Labored Respiratory Depth Respiratory Pattern Blood Pressure 232/150 H 207/150 H Blood Pressure Mean 177 169 Blood Pressure Position Pulse Oximetry 93 90 91 Oxygen Delivery Method BiPAP Fraction of Inspired Oxygen Sepsis Recent Fever Within 48 Hours Sepsis New/Unexplained Change in Mental Status Sepsis Action Taken by Nursing Fraction of Inspired Oxygen - Titration Pulse Oximetry Post Tiitration 10/02/20 07:16 Temperature Temperature Source Pulse Rate 126 H Pulse Rate [Right Radial] Pulse Rate from SpO2 Sensor 126 H Respiratory Rate 39 H Respiratory Effort / Characteristics Respiratory Depth Respiratory Pattern Blood Pressure 212/133 H Blood Pressure Mean 159 Blood Pressure Position Pulse Oximetry 93 Oxygen Delivery Method Fraction of Inspired Oxygen Sepsis Recent Fever Within 48 Hours Sepsis New/Unexplained Change in Mental Status Sepsis Action Taken by Nursing Fraction of Inspired Oxygen - Titration Pulse Oximetry Post Tiitration VITALS: Vitals are noted on the nurse's note and reviewed by myself. Vital signs tachycardic hypoxic on CPAP. GENERAL white male diaphoretic working to breathe in acute respiratory distress SKIN: The skin was without rashes or bruising. There is no tenting of the skin. Capillary reflex less than 2 seconds. HEAD: Normocephalic atraumatic. EARS: External auditory canals clear, tympanic membranes pearly blake without erythema or effusion bilaterally. EYES: Pupils equal round and reactive to light and accommodation. Conjunctivae without injection, sclerae without icterus. Extraocular movements intact. NOSE: Patent, turbinates without inflammation or discharge. No sinus tenderness . MOUTH: Mucous membranes moist. Pharynx without erythema or exudate. Uvula midline. Airway patent. Tongue does not deviate. NECK: Supple without nuchal rigidity. No lymphadenopathy. No thyromegaly. Cervical spine is nontender. No JVD. HEART: Tachycardic rate and rhythm LUNGS: Bibasilar Rales and wheezes throughout +accessory muscle use. ABDOMEN: Positive bowel sounds x 4. Normal tympanic percussion. Soft, nontender, without masses or organomegaly. Banks sign negative. No guarding or rebound tenderness. No CVA tenderness MUSCULOSKELETAL: No muscle atrophy noted. NEURO: Patient was alert and oriented to person place and time. Normal sensation to light and sharp touch. No focal neurological deficits. Course Administered Medications Famotidine 20 mg/ Syringe 5 mls @ 2.5 mls/min IV DAILY SUKHWINDER Stop: 11/01/20 11:59 Last Admin: 10/02/20 12:02 Dose: 2.5 mls/min Documented by: [id number] Nicardipine HCl 25 mg/ Sodium (Chloride) 250 mls @ 50 mls/hr IV .Q5H SUKHWINDER; Protocol Stop: 11/01/20 10:44 Last Titration: 10/02/20 13:35 Dose: 5 mg/hr, 50 mls/hr Documented by: [id number] Titration: 10/02/20 11:37 Dose: 7.5 mg/hr, 75 mls/hr Documented by: [id number] Admin: 10/02/20 11:04 Dose: 5 mg/hr, 50 mls/hr Documented by: [id number] Cosigned by: [id number] Insulin Human Regular 250 (units/ Sodium Chloride) 250 mls @ 6.6 mls/hr IV .Q24H SUKHWINDER; Protocol Stop: 11/01/20 10:59 Last Admin: 10/02/20 12:02 Dose: 6.6 units/hr, 6.6 mls/hr Documented by: [id number] Cosigned by: [id number] Furosemide 100 mg/ Dextrose 100 mls @ 10 mls/hr IV .Q10H SUKHWINDER Stop: 11/01/20 11:59 Last Admin: 10/02/20 12:35 Dose: 10 mg/hr, 10 mls/hr Documented by: [id number] Insulin Aspart (Insulin Aspart 100 Units/Ml 3 Ml Pen) 0 units SC ACHS [facility] Stop: 11/01/20 11:29 Last Admin: 10/02/20 11:57 Dose: Not Given Documented by: [id number] Cosigned by: [id number] Nitroglycerin (Nitroglycerin 2% Ointment 30gm Tube) 1 inch EXT Q6H SUKHWINDER Stop: 11/01/20 10:16 Last Admin: 10/02/20 13:02 Dose: 1 inch Documented by: [id number] Admin: 10/02/20 10:26 Dose: Not Given Documented by: [id number] Discontinued Medications Albuterol (Albut/Ipratrop 3mg/0.5mg Neb 3 Ml Vial) 3 ml NEB NOW STA Stop: 10/02/20 06:18 Last Admin: 10/02/20 06:20 Dose: 3 ml Documented by: [id number] Albuterol (Albut/Ipratrop 3mg/0.5mg Neb 3 Ml Vial) Confirm Administered Dose 3 ml .ROUTE .STK-MED ONE Stop: 10/02/20 06:19 Last Admin: 10/02/20 10:25 Dose: Not Given Documented by: [id number] Furosemide (Furosemide 40 Mg/4 Ml Vial) 40 mg IV NOW STA Stop: 10/02/20 06:34 Last Admin: 10/02/20 06:45 Dose: 40 mg Documented by: [id number] Furosemide (Furosemide 40 Mg/4 Ml Vial) 40 mg IV NOW STA Stop: 10/02/20 07:26 Last Admin: 10/02/20 07:28 Dose: 40 mg Documented by: [id number] Furosemide 40 mg/ Syringe 4 mls @ 4 mls/min IV ONE ONE Stop: 10/02/20 12:00 Last Admin: 10/02/20 12:34 Dose: 4 mls/min Documented by: [id number] Insulin Human Regular (Novolin-R Bolus From Bag) 6.5 units IV ONE ONE Stop: 10/02/20 11:01 Last Admin: 10/02/20 12:02 Dose: 6.5 units Documented by: [id number] Cosigned by: [id number] Metoprolol Tartrate (Metoprolol Tartrate 1 Mg/Ml Vial) 5 mg IV NOW STA Stop: 10/02/20 12:00 Last Admin: 10/02/20 12:35 Dose: 5 mg Documented by: [id number] Miscellaneous (Rapid Sequence Induction Bag) Confirm Administered Dose 1 ea .ROUTE .STK-MED ONE Stop: 10/02/20 06:15 Last Admin: 10/02/20 10:25 Dose: Not Given Documented by: [id number] Miscellaneous (Insulin Protocol Goal Range ) 1 ea N/A ONE ONE Stop: 10/02/20 10:47 Last Admin: 10/02/20 12:03 Dose: 1 ea Documented by: [id number] Miscellaneous (Severe Stress Level ) 1 ea N/A ONE ONE Stop: 10/02/20 10:47 Last Admin: 10/02/20 12:05 Dose: 1 ea Documented by: [id number] Miscellaneous (Stat Iv Infusion Titration Per Protocol) 1 ea N/A NOW STA Stop: 10/02/20 10:47 Last Admin: 10/02/20 12:03 Dose: 1 ea Documented by: [id number] Nitroglycerin (Nitroglycerin 2% Ointment 30gm Tube) 0.5 inch EXT NOW STA Stop: 10/02/20 06:34 Last Admin: 10/02/20 06:45 Dose: 0.5 inch Documented by: [id number] Nitroglycerin (Nitroglycerin 2% Ointment 30gm Tube) 1 inch EXT ONE STA Stop: 10/02/20 08:01 Last Admin: 10/02/20 10:27 Dose: Not Given Documented by: [id number] Critical Care Time I have personally spent 35 minutes of critical care time in the direct management of this patient. This includes bedside care, interpretation of diagnostic studies, and testing, discussion with consultants, patient, and family members, and other required patient management activities. This 35 minutes is in excess of all separately billable procedures. Medical Decision Making Medical Records Attestation: I reviewed the patient's medical records. Home Medications Current Medication List: was personally reviewed by me Laboratory Data Attestation: I reviewed the patient's lab results. Result diagrams: 10/02/20 06:43 10/02/20 12:43 Lab Results 10/02/20 10/02/20 10/02/20 Range/Units 06:28 06:35 06:35 WBC (4.8-10.8) K/uL RBC (4.7-6.1) M/uL Hgb (14.0-18.0) g/dL POC Hgb 16.3 (14.0-18.0) g/dl Hct (42-52) % POC Hct 48 (42-52) % MCV (80-100) fL MCH (25-34) pg MCHC (32-36) g/dL RDW Std Deviation (36.4-46.3) fL RDW Coeff of Zoltan (11.5-14.5) % Plt Count (130-400) K/uL MPV (7.4-10.4) fL Immature Gran % (Auto) % Neut % (Auto) % Lymph % (Auto) % Mayes % (Auto) % Eos % (Auto) % Baso % (Auto) % Neut # (Auto) (1.4-6.5) K/uL Lymph # (Auto) (1.2-3.4) K/uL Mayes # (Auto) (0.11-0.59) K/uL Eos # (Auto) (0-0.5) K/uL Baso # (Auto) (0-0.2) K/uL Immature Gran # (Auto) (0.00-0.02) K/uL PT 10.5 (9.0-12.0) Seconds INR 1.0 (0.9-1.1) APTT 25.4 (21.0-31.0) Seconds PTT Ratio 1.0 POC pH 7.16 L* (7.35-7.45) POC pCO2 65 H (35-46) mmHg POC pO2 92 (80-95) mmHg POC HCO3 23 (19-24) halie/L POC Total CO2 25 (24-31) mmol/L POC Base Excess -5.0 (-9-1.8) halie/L POC ABG O2 Sat 94.0 (90-95) % POC Sodium 138 (135-144) mmol/L Sodium (136-145) mmol/L POC Potassium 4.3 (3.3-5.0) mmol/L Potassium (3.5-5.1) mmol/L POC Chloride (101-112) mmol/L Chloride (98-107) mmol/L Carbon Dioxide (21-32) mmol/L Anion Gap (3-11) POC Anion Gap (16-25) mmol/L POC BUN (7-18) mg/dl BUN (7-18) mg/dl Creatinine (0.6-1.4) mg/dl POC Creatinine (0.6-1.3) mg/dl Est Cr Clr Drug Dosing ml/min Est GFR ( Amer) ml/min Est GFR (Non-Af Amer) ml/min BUN/Creatinine Ratio (10-20) Glucose (70-99) mg/dl POC Glucose (other) (70-99) mg/dl Lactate (0.4-2.0) mmol/L Calcium (8.5-10.1) mg/dl POC Ioniz Calcium Yuni (1.12-1.32) mmol/l Magnesium (1.8-2.4) mg/dl Total Bilirubin (0.2-1) mg/dl AST (15-37) U/L ALT (12-78) U/L Alkaline Phosphatase (45-117) U/L Troponin I (0-0.045) ng/ml NT-Pro-B Natriuret Pep (0-450) pg/ml Total Protein (6.4-8.2) gm/dl Albumin (3.4-5.0) gm/dl Globulin (2.5-4.0) gm/dl Albumin/Globulin Ratio (0.9-2) Beta-Hydroxybutyric Acd (0.2-2.81) mg/dl Procalcitonin < 0.05 (0-0.5) ng/ml 10/02/20 10/02/20 10/02/20 Range/Units 06:38 06:40 06:43 WBC 15.76 H (4.8-10.8) K/uL RBC 5.22 (4.7-6.1) M/uL Hgb 15.2 (14.0-18.0) g/dL POC Hgb 17.0 (14.0-18.0) g/dl Hct 46.2 (42-52) % POC Hct 50 (42-52) % MCV 88.5 (80-100) fL MCH 29.1 (25-34) pg MCHC 32.9 (32-36) g/dL RDW Std Deviation 49.7 H (36.4-46.3) fL RDW Coeff of Zoltan 15.4 H (11.5-14.5) % Plt Count 262 (130-400) K/uL MPV 10.6 H (7.4-10.4) fL Immature Gran % (Auto) 0.8 % Neut % (Auto) 76.0 % Lymph % (Auto) 17.1 % Mayes % (Auto) 5.3 % Eos % (Auto) 0.6 % Baso % (Auto) 0.2 % Neut # (Auto) 11.97 H (1.4-6.5) K/uL Lymph # (Auto) 2.70 (1.2-3.4) K/uL Mayes # (Auto) 0.84 H (0.11-0.59) K/uL Eos # (Auto) 0.09 (0-0.5) K/uL Baso # (Auto) 0.03 (0-0.2) K/uL Immature Gran # (Auto) 0.13 H (0.00-0.02) K/uL PT (9.0-12.0) Seconds INR (0.9-1.1) APTT (21.0-31.0) Seconds PTT Ratio POC pH (7.35-7.45) POC pCO2 (35-46) mmHg POC pO2 (80-95) mmHg POC HCO3 (19-24) halie/L POC Total CO2 24 (24-31) mmol/L POC Base Excess (-9-1.8) halie/L POC ABG O2 Sat (90-95) % POC Sodium 139 (135-144) mmol/L Sodium (136-145) mmol/L POC Potassium 4.7 (3.3-5.0) mmol/L Potassium (3.5-5.1) mmol/L POC Chloride 102 (101-112) mmol/L Chloride (98-107) mmol/L Carbon Dioxide (21-32) mmol/L Anion Gap (3-11) POC Anion Gap 19.0 (16-25) mmol/L POC BUN 16 (7-18) mg/dl BUN (7-18) mg/dl Creatinine (0.6-1.4) mg/dl POC Creatinine 1.0 (0.6-1.3) mg/dl Est Cr Clr Drug Dosing ml/min Est GFR ( Amer) ml/min Est GFR (Non-Af Amer) ml/min BUN/Creatinine Ratio (10-20) Glucose (70-99) mg/dl POC Glucose (other) 381 H* (70-99) mg/dl Lactate 4.6 H* (0.4-2.0) mmol/L Calcium (8.5-10.1) mg/dl POC Ioniz Calcium Yuni 1.18 (1.12-1.32) mmol/l Magnesium (1.8-2.4) mg/dl Total Bilirubin (0.2-1) mg/dl AST (15-37) U/L ALT (12-78) U/L Alkaline Phosphatase (45-117) U/L Troponin I (0-0.045) ng/ml NT-Pro-B Natriuret Pep (0-450) pg/ml Total Protein (6.4-8.2) gm/dl Albumin (3.4-5.0) gm/dl Globulin (2.5-4.0) gm/dl Albumin/Globulin Ratio (0.9-2) Beta-Hydroxybutyric Acd (0.2-2.81) mg/dl Procalcitonin (0-0.5) ng/ml 10/02/20 Range/Units 06:43 WBC (4.8-10.8) K/uL RBC (4.7-6.1) M/uL Hgb (14.0-18.0) g/dL POC Hgb (14.0-18.0) g/dl Hct (42-52) % POC Hct (42-52) % MCV (80-100) fL MCH (25-34) pg MCHC (32-36) g/dL RDW Std Deviation (36.4-46.3) fL RDW Coeff of Zoltan (11.5-14.5) % Plt Count (130-400) K/uL MPV (7.4-10.4) fL Immature Gran % (Auto) % Neut % (Auto) % Lymph % (Auto) % Mayes % (Auto) % Eos % (Auto) % Baso % (Auto) % Neut # (Auto) (1.4-6.5) K/uL Lymph # (Auto) (1.2-3.4) K/uL Mayes # (Auto) (0.11-0.59) K/uL Eos # (Auto) (0-0.5) K/uL Baso # (Auto) (0-0.2) K/uL Immature Gran # (Auto) (0.00-0.02) K/uL PT (9.0-12.0) Seconds INR (0.9-1.1) APTT (21.0-31.0) Seconds PTT Ratio POC pH (7.35-7.45) POC pCO2 (35-46) mmHg POC pO2 (80-95) mmHg POC HCO3 (19-24) halie/L POC Total CO2 (24-31) mmol/L POC Base Excess (-9-1.8) halie/L POC ABG O2 Sat (90-95) % POC Sodium (135-144) mmol/L Sodium 137 (136-145) mmol/L POC Potassium (3.3-5.0) mmol/L Potassium 4.0 (3.5-5.1) mmol/L POC Chloride (101-112) mmol/L Chloride 106 (98-107) mmol/L Carbon Dioxide 21 (21-32) mmol/L Anion Gap 11.0 (3-11) POC Anion Gap (16-25) mmol/L POC BUN (7-18) mg/dl BUN 12 (7-18) mg/dl Creatinine 1.22 (0.6-1.4) mg/dl POC Creatinine (0.6-1.3) mg/dl Est Cr Clr Drug Dosing 127.8 ml/min Est GFR ( Amer) 83.6 ml/min Est GFR (Non-Af Amer) 72.2 ml/min BUN/Creatinine Ratio 10.0 (10-20) Glucose 396 H* (70-99) mg/dl POC Glucose (other) (70-99) mg/dl Lactate (0.4-2.0) mmol/L Calcium 9.1 (8.5-10.1) mg/dl POC Ioniz Calcium Yuni (1.12-1.32) mmol/l Magnesium 1.9 (1.8-2.4) mg/dl Total Bilirubin 0.9 (0.2-1) mg/dl AST 25 (15-37) U/L ALT 33 (12-78) U/L Alkaline Phosphatase 115 (45-117) U/L Troponin I < 0.015 (0-0.045) ng/ml NT-Pro-B Natriuret Pep 3405 H (0-450) pg/ml Total Protein 8.2 (6.4-8.2) gm/dl Albumin 3.4 (3.4-5.0) gm/dl Globulin 4.8 H (2.5-4.0) gm/dl Albumin/Globulin Ratio 0.7 L (0.9-2) Beta-Hydroxybutyric Acd 1.64 (0.2-2.81) mg/dl Procalcitonin (0-0.5) ng/ml Imaging Data Attestation: I personally reviewed and interpreted this imaging study as follows: Radiologist's Impression: Chest X-Ray 10/02/20 06:33 XR chest 1V portable CLINICAL HISTORY: SEPSIS COMPARISON STUDY: Chest CT July 04, 2020 chest radiograph September 27, 2020. FINDINGS: A left subclavian pacer is in place. There is no pneumothorax. C ardiomegaly is unchanged. There are suspected small bilateral pleural effusions. Bibasilar consolidation has increased. There is pulmonary vascular congestion with suspected pulmonary edema. IMPRESSION: 1. Increase in bibasilar consolidation which favors pneumonia however pulmonary edema could appear similar. Radiographic follow-up to ensure resolution is recommended. 2. Suspected pulmonary edema. Small bilateral pleural effusions. 3. Cardiomegaly. ACT 112: Negative or not required by law. Electronically signed by: Eyad Rosario M.D. 10/02/2020 7:11 AM [facility] Narrative Prior records/ancillary studies reviewed. Triage Nursing notes reviewed. Additional history obtained from EMS The patient's history was concerning for respiratory difficulties. Differential diagnosis: Etiologies such as infections, reactive airway disease, pneumonia, pneumothorax, COPD, CHF, cardiac ischemia, pulmonary embolism, musculoskeletal, gastrointestinal, as well as others were entertained. Physical examination: As above. ER treatment provided: An order was placed for continuous cardiac monitoring. The monitor shows a rate of 60-1 50 with a sinus rhythm. BiPAP, Lasix, nitroglycerin, nebulizer Limited bedside ultrasound shows concerns for pulmonary edema per lung ultrasound examination interpreted by myself On reassessment the patient felt better. Diagnostic interpretation by me: The electrocardiogram was ordered for dyspnea EKG: Normal sinus, incomplete right bundle bundle, left axis deviation, EKG compared to prior EKG: Impression sinus tachycardia with incomplete right bundle branch block with a left axis deviation unchanged interpreted by myself The labs revealed ABG reviewed Imaging studies: Chest x-ray concerning for pulmonary edema per my interpretation. Consultation: A consultation was placed with the burlap man and hospitalist. The case was discussed and diagnostics were reviewed. The patient was evaluated in the ER for further treatment. This appears to be consistent with CHF with acute respiratory failure. Patient's O2 sats at home were in the 80s. He was quite short of breath. He was placed on CPAP by EMS and BiPAP by me. He was given duo nebs Lasix and nitroglycerin. He had some improvement. Medicine and the burlap man were consulted. He will be admitted. Patient has a history of noncompliance. He states he has been gaining weight. By the evaluation outlined above emergent etiologies such as cardiac ischemia, pulmonary embolism, reactive airway disease, pneumothorax, musculoskeletal, serious bacterial infections, as well as others were deemed relatively unlikely. The pt informed about the findings as listed above. All questions were answered and pleased with the treatment. The chart was completed utilizing [employer] Speech voice recognition software. Grammatical errors, random word insertions, pronoun errors, and incomplete sentences are an occassional consequence of this system due to software limitations, ambient noise, and hardware issues. Any formal questions or concerns about the content, text, or information contained within the body of this dictation should be directly addressed to the physician orthotics assistant for clarification. Impression & Plan Acute and chronic respiratory failure with hypoxia, Acute on chronic HFrEF (heart failure with reduced ejection fraction) Discharge Plan Visit Data Chief Complaint: Respiratory Problems Stated Complaint: RESPIRATORY DIFFICULTY ED Provider: Jason Noland ED Midlevel Provider: Sheridan Comer Discharge Problem: Acute and chronic respiratory failure with hypoxia, Acute on chronic HFrEF (heart failure with reduced ejection fraction) Patient Disposition: Admitted As Inpatient Condition: Fair Discharge Instructions Interventions: ED Discharge Assessment Last Done: 10/02/20 10:00
[2020-10-02 06:53] LABS: iSTAT Ionized Calcium 1.18 mmol/l (1.12-1.32); iSTAT Potassium 4.7 mmol/L (3.3-5.0)
--- NOTE | 2020-10-02 07:12 | XRay Report ---
XR chest 1V portable CLINICAL HISTORY: SEPSIS COMPARISON STUDY: Chest CT July 04, 2020 chest radiograph September 27, 2020. FINDINGS: A left subclavian pacer is in place. There is no pneumothorax. Cardiomegaly is unchanged. T here are suspected small bilateral pleural effusions. Bibasilar consolidation has increased. There is pulmonary vascular congestion with suspected pulmonary edema. IMPRESSION: 1. Increase in bibasilar consolidation which favors pneumonia however pulmonary edema could appear si milar. Radiographic follow-up to ensure resolution is recommended. 2. Suspected pulmonary edema. Small bilateral pleural effusions. 3. Cardiomegaly. ACT 112: Negative or not required by law. Electronically signed by: Eyad Rosario M.D. 10/02/2020 7:11 AM
[2020-10-02 07:25] LABS: Basophils # (auto) 0.03 K/uL (0-0.2); Basophils % (auto) 0.2 %; Eosinophils # (auto) 0.09 K/uL (0-0.5); Eosinophils % (auto) 0.6 %; Hematocrit (blood only) 46.2 % (42-52); Hemoglobin 15.2 g/dL (14.0-18.0); Immature Granulocytes # (auto) 0.13 K/uL (0.00-0.02); Immature Granulocytes % (auto) 0.8 %; Lymphocytes % (auto) 17.1 %; Mean Corpuscular Hemoglobin 29.1 pg (25-34); Mean Corpuscular Hgb Conc 32.9 g/dL (32-36); Mean Corpuscular Volume 88.5 fL (80-100); Mean Platelet Volume 10.6 fL (7.4-10.4); Monocytes # (auto) 0.84 K/uL (0.11-0.59); Monocytes % (auto) 5.3 %; Neutrophils # (auto) 11.97 K/uL (1.4-6.5); Platelet Count 262 K/uL (130-400); RDW Coefficient of Variation 15.4 % (11.5-14.5); RDW Standard Deviation 49.7 fL (36.4-46.3); Red Blood Count 5.22 M/uL (4.7-6.1); White Blood Count 15.76 K/uL (4.8-10.8)
[2020-10-02 07:32] LABS: Partial Thromboplastin Time 25.4 Seconds (21.0-31.0); Prothrombin Time 10.5 Seconds (9.0-12.0)
[2020-10-02 07:42] LABS: Alanine Aminotransferase 33 U/L (12-78); Albumin Globulin Ratio 0.7 (0.9-2); Albumin Level 3.4 gm/dl (3.4-5.0); Alkaline Phosphatase 115 U/L (45-117); Aspartate Aminotransferase 25 U/L (15-37); Bilirubin,Total 0.9 mg/dl (0.2-1); Blood Urea Nitrogen 12 mg/dl (7-18); Calcium 9.1 mg/dl (8.5-10.1); Carbon Dioxide 21 mmol/L (21-32); Chloride 106 mmol/L (98-107); Creatinine Clr Calc Pharmacy 127.8 ml/min; Est GFR (African American) 83.6 ml/min; Est GFR (Non-African American) 72.2 ml/min; Globulin 4.8 gm/dl (2.5-4.0); Glucose 396 mg/dl (70-99); Magnesium 1.9 mg/dl (1.8-2.4); NT Pro B Type Natriuretic Pept 3405 pg/ml (0-450); Sodium 137 mmol/L (136-145); Total Protein 8.2 gm/dl (6.4-8.2); Troponin I < 0.015 ng/ml (0-0.045)
[2020-10-02 07:59] LABS: Beta-Hydroxybutyrate 1.64 mg/dl (0.2-2.81)
--- NOTE | 2020-10-02 08:03 | History & Physical Report ---
Date of Service October 02, 2020 Assessment & Plan (1) Acute respiratory failure with hypoxia and hypercarbia: Plan: Continue on BiPAP, currently maintaining sats on FiO2 70%. Aim O2 sats > 90% Admit to ICU - ER discussed with Dr Hurley. (2) Acute respiratory acidosis: Plan: Management as above with BiPAP. Serial ABGs (3) Acute on chronic congestive heart failure: Plan: Previous diuresis achieved with Lasix 40mg IV BID (despite notably higher equivalent torsemide doses at home). Will start with 40mg IV BID and monitor I&Os. Nitro patch increased to 1 inch with better BP control sBP 160. Currently NPO due to respiratory distress Strict I&Os Daily weight De Dios catheter to be placed when able - avoid lying flat as he will decompensate quickly. 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 His medication list is NOT what he takes at home and will lead to renal failure and hypotension if those doses are restart. Will need to clarify with patient once respiratory status is better. (5) AICD (automatic cardioverter/defibrillator) present: Plan: Noted (6) Hypertensive emergency: Plan: Now better controlled with nitro patch and Lasix. Continue to monitor in ICU. (7) Obstructive sleep apnea: Plan: Requires BiPAP HS chronically. (8) Diabetes mellitus type II, uncontrolled: Plan: HbA1C 12.5 in August, unclear why much worse controlled than last year but patient is known to be non-compliant Consult pharmacy for glycemic control while here (9) COPD (chronic obstructive pulmonary disease): Plan: Continue his usual Symbicort Plan: VTE prophylaxis - chronic apixaban (prior PE) GI prophylaxis - famotidine 20mg IV History of Present Illness Chief Complaint: Shortness of breath Primary Care Provider: CM Hitchcock Alok Huff is a 44 year old male with non-ischemic cardiomyopathy who presents to the ER with shortness of breath. Unable to get any history from patient as on 70% FiO2 [id number] BiPAP and in respiratory distress. Well known to this service for non-compliance with his medication. In the ER he was given 80mg IV Lasix and started on 0.5 inch nitro paste with improved O2 sats and less respiratory distress. CXR consistent with pulmonary edema but als concerning for pneumonia. WBC elevated although this has also occurred on prior occasions of CHF without pneumonia. Procalcitonin negative. BNP elevated 3405pg/ml. Lactic acid elevated at 4.6. ABG pH 7.16 - respiratory acidosis. Allergies Allergy/AdvReac Type Severity Reaction Status Date / Time ceftriaxone Allergy Severe SHORTNESS Verified 10/02/20 08:21 OF BREATH lidocaine Allergy Severe SHORTNESS Verified 10/02/20 08:21 OF BREATH, diaphoretic, hives procaine Allergy Severe SHORTNESS Verified 10/02/20 08:21 OF BREATH, diaphoretic, hives amoxicillin Allergy Intermediate HIVES/FACIAL Verified 10/02/20 08:21 SWELLING clavulanic acid Allergy Intermediate HIVES/FACIAL Verified 10/02/20 08:21 SWELLING lisinopril Allergy Intermediate HIVES Verified 10/02/20 08:21 acetaminophen AdvReac Mild NAUSEA Verified 10/02/20 08:21 albuterol AdvReac Mild proair Verified 10/02/20 08:21 "trouble taking breaths" Fish Containing Products AdvReac Unknown Verified 10/02/20 08:21 Home Medications Medication Instructions Recorded Confirmed Type nitroglycerin 0.4 mg sublingual 0.4 mg SUBLINGUAL UD PRN 04/24/19 10/01/20 History tablet (Nitrostat) cholecalciferol (vitamin D3) 50 50 mcg PO BID 10/04/19 10/01/20 History mcg (2,000 unit) tablet (Vitamin D3) dulaglutide 1.5 mg/0.5 mL 1.5 mg SUBCUT WK #2 ml 04/21/20 10/02/20 Rx subcutaneous pen injector (Trulicity) metoprolol succinate 100 mg 100 mg PO BID #60 tab 06/30/20 10/01/20 Rx tablet,extended release 24 hr aspirin 81 mg tablet,delayed 81 mg PO DAILY tab 07/10/20 10/01/20 History release (Aspirin Low Dose) apixaban 5 mg tablet (Eliquis) 5 mg PO BID tab 08/10/20 10/01/20 History atorvastatin 10 mg tablet 10 mg PO DAILY 08/10/20 10/01/20 History sacubitril 97 mg-valsartan 103 mg 1 tab PO BID 08/10/20 10/01/20 History tablet (Entresto) torsemide 20 mg tablet 80 mg PO BID 08/18/20 10/01/20 History spironolactone 25 mg tablet 50 mg PO QAM #30 tab 08/23/20 10/01/20 Rx (Aldactone) budesonide-formoterol HFA 160 2 inh INHALATION BID #10.2 g 09/27/20 10/02/20 Rx mcg-4.5 mcg/actuation aerosol inhaler (Symbicort) esomeprazole magnesium 20 mg 20 mg PO DAILY #30 cap 09/28/20 10/01/20 Rx capsule,delayed release (Nexium) Past Med/Surg History Medical History Cellulitis of neck Chronic respiratory failure Dilatation of thoracic aorta Fatty liver Hearing loss of both ears Hypoxia Iliac aneurysm Left-sided weakness Lung nodule NICM (nonischemic cardiomyopathy) Pt admitted for elective ICD. Underwent procedure without any complications monitored over night and discharged home. Obstructive sleep apnea SOB (shortness of breath) Umbilical hernia Vitamin D insufficiency Previously deficient, taking Vit D supplementation Surgical History History of carpal tunnel surgery History of cholecystectomy S/P tonsillectomy Family History Father , age 57 of an [place]. Heart disease Myocardial infarction Mother , age 67 of a ruptured neck vessel Sudden Other Depression Lung disease No pertinent family history Denies family history of Ovarian cancer Prostate cancer Breast cancer Colorectal cancer Social History Smoking Status: Never smoker Tobacco Type: Cigarettes Age Started Using Tobacco: 14; Age Quit Using Tobacco: 18; Cigarettes Per Day: 40-50; Second Hand Exposure: No; Hx Alcohol Use: Yes Alcohol type: other Hx Substance Use: No Preferred Language: Polish Communication Ability: Effective Visual Impairment: No Limitations Hearing Ability: Normal Blood Bank Order Control Clerk Required: No Beliefs That Will Affect Care: None marital status: Current Living Situation: Spouse current occupational status: unemployed How many Children do You have: 0 Feels Safe at Home: Yes Childhood Exposure to Second-Hand Smoke: Yes Dental Care, Regularly: Yes Physical Activity Frequency: Does not Exercise Assistive Devices: Oxygen - at Night and Wheelchair Review of Systems Review of Systems: Unobtainable due to cognitive status Physical Exam Constitutional: + acute distress (respiratory) and + morbidly obese Eyes: + anicteric sclerae; normal pupil size Neck: trachea midline, no thyromegaly Respiratory: + respiratory distress, + labored breathing, + uses accessory muscles and + tachypneic; + abnormal respiratory effort, expiratory phase not prolonged and no audible wheezes Auscultation: + breath sounds absent (bibasal) and + diminished lung sounds (throughout); no crackles and no wheezes Cardiovascular: Rate/Rhythm: regular rhythm and + tachycardic Heart Sounds: no murmur (distant heart sounds) Extremities: normal capillary refill and + pedal edema (pitting 3+ to thighs equal b/l) Gastrointestinal (Abdomen): Inspection/Auscultation: + abdomen distended; + abdomen abnormal to inspection (obese, multiple non cellulitis wounds on lower abdomen) Percussion/Palpation: abdomen soft; abdomen nontender, no guarding and abdomen not rigid Skin: no rashes, warm and dry (limited ability to inspect skin due to obesity and respiraroy distress) Neurologic: moves all extremities, awake and + confused Psychiatric: Orientation: alert; + not oriented x 3 (unable to converse, follows one step commands) Insight: + poor insight Results & Data Results & Data ([facility]) Vital Signs (Past 12 Hours) Vital Signs Temp Pulse Pulse Resp BP Pulse Ox 10/02/20 07:16 126 H 39 H 212/133 H 93 10/02/20 07:02 45 H 91 10/02/20 07:00 122 H 43 H 207/150 H 90 10/02/20 06:45 134 H 31 H 232/150 H 93 10/02/20 06:35 140 H 35 H 92 10/02/20 06:32 138 H 64 H 90 10/02/20 06:25 36.6 C 30 H 90 10/02/20 06:21 138 H 32 H 92 10/02/20 06:20 88 L 10/02/20 06:18 142 H 27 H 90 Diagnostic Findings XR chest 1V portable CLINICAL HISTORY: SEPSIS COMPARISON STUDY: Chest CT July 04, 2020 chest radiograph September 27, 2020. FINDINGS: A left subclavian pacer is in place. There is no pneumothorax. Cardiomegaly is unchanged. There are suspected small bilateral pleural effusions. Bibasilar consolidation has increased. There is pulmonary vascular congestion with suspected pulmonary edema. IMPRESSION: 1. Increase in bibasilar consolidation which favors pneumonia however pulmonary edema could appear similar. Radiographic follow-up to ensure resolution is recommended. 2. Suspected pulmonary edema. Small bilateral pleural effusions. 3. Cardiomegaly. Medications Administered ER Medications given: Duoneb 3ml Lsix 40mg IV x2 Nitroglycerin 2% 0.5 inch patch ECG Indication: SOB/dyspnea Rate (beats per minute): 134 Findings: no acute ischemic change Comparison ECG Date: from (September 27, 2020) Change: no significant change Code Status & VTE Plan Code Status Full VTE Prophylaxis Plan VTE Prophylaxis will be ordered: Yes PG Care Time/CCT Total # of Minutes Spent Total Time Spent with Patient: Total time spent is greater than 50% in coordination of care (as documented) at patient's floor/unit and/or counseling patient: Coding Level of Care Code 08876 Initial Inpt Care Lvl 3 Diagnoses Noncompliance Z91.19 Acute on chronic congestive heart failure I50.43 Heart failure type: combined systolic and diastolic COPD (chronic obstructive pulmonary disease) J44.9 COPD type: unspecified COPD Diabetes mellitus type II, uncontrolled E11.65 Glycemic state: with hyperglycemia AICD (automatic cardioverter/defibrillator) present Z95.810 Hypertensive emergency I16.1 Obstructive sleep apnea G47.33 Acute respiratory failure with hypoxia and hypercarbia J96.01; J96.02 Acute respiratory acidosis E87.2 (1) Acute on chronic congestive heart failure Heart failure type: combined systolic and diastolic Qualified Code(s): I50.43 - Acute on chronic combined systolic (congestive) and diastolic (congestive) heart failure (2) Diabetes mellitus type II, uncontrolled Glycemic state: with hyperglycemia Qualified Code(s): E11.65 - Type 2 diabetes mellitus with hyperglycemia (3) COPD (chronic obstructive pulmonary disease) COPD type: unspecified COPD Qualified Code(s): J44.9 - Chronic obstructive pulmonary disease, unspecified
[2020-10-02] MEDS ORDERED: FUROSEMIDE 40 MG/4 ML VIAL IV SCH ×2 (09:00→21:00)
[2020-10-02] MEDS ORDERED: ICU PROTOCOL FOR HYPERGLYCEMIA PRN (10:17)
[2020-10-02] MEDS ORDERED: PHARMACY GLYCEMIC MGMT CONSULT PRN (10:17)
[2020-10-02] MEDS: NITROGLYCERIN 2% OINTMENT 30GM TUBE EXT SCH ×3 (10:26→17:17)
[2020-10-02] MEDS ORDERED: STAT IV Infusion **Titration per Protocol STA ×2 (10:32→10:46)
[2020-10-02] MEDS ORDERED: SEVERE STRESS LEVEL ONE (10:46)
[2020-10-02] MEDS ORDERED: INSULIN PROTOCOL GOAL RANGE ONE (10:46)
[2020-10-02] MEDS ORDERED: CARBOHYDRATES FOR HYPOGLYCEMIA PO PRN (11:00)
[2020-10-02] MEDS ORDERED: NovoLIN-R BOLUS FROM BAG IV ONE (11:00)
[2020-10-02] MEDS ORDERED: DEXTROSE 50% 50 ML SYRINGE IV PRN (11:00)
[2020-10-02] MEDS ORDERED: GLUCAGON FOR INJ 1 MG VIAL IM PRN (11:00)
[2020-10-02] MEDS ORDERED: INSULIN REGULAR 250 UNITS in SODIUM CHLORIDE 0.9% 247.5 ML IV SCH (11:00)
[2020-10-02] MEDS ORDERED: GLUCOSE 40% GEL 15 GM TUBE PO PRN (11:00)
[2020-10-02] MEDS ORDERED: GLUCOSE 10 TABS/TUBE PO PRN (11:00)
[2020-10-02] MEDS: niCARdipine 25 MG in SODIUM CHLORIDE 0.9% 240 ML IV SCH ×3 (11:04→23:17)
[2020-10-02] MEDS: INSULIN ASPART 100 UNITS/ML 3 ML PEN SC SCH ×3 (11:57→19:51)
[2020-10-02] MEDS ORDERED: METOPROLOL TARTRATE 1 MG/ML VIAL IV STA (11:59)
[2020-10-02] MEDS ORDERED: FUROSEMIDE 40 MG in SYRINGE 0 ML IV ONE (11:59)
[2020-10-02] MEDS: FAMOTIDINE 20 MG in SYRINGE 3 ML IV SCH (12:02)
[2020-10-02] MEDS: FUROSEMIDE 100 MG in DEXTROSE 5% 90 ML IV SCH ×2 (12:35→21:44)
[2020-10-02 13:27] LABS: BUN Creatinine Ratio 10.6 (10-20); Calcium 8.7 mg/dl (8.5-10.1); Est GFR (African American) 93.8 ml/min; Est GFR (Non-African American) 80.9 ml/min; Potassium 4.2 mmol/L (3.5-5.1)
--- NOTE | 2020-10-02 13:28 | Critical Care Consultation ---
Date of Consultation October 02, 2020 Assessment & Plan (1) Acute respiratory failure with hypoxia and hypercarbia: (2) Diabetes mellitus type II, uncontrolled: (3) Chronic anticoagulation: (4) Flash pulmonary edema: (5) Noncompliance: (6) Acute on chronic heart failure with reduced ejection fraction and diastolic dysfunction: (7) Hypertensive urgency: 44-year-old male with a past medical history of morbid obesity, combined systolic and diastolic CHF, diabetes mellitus type 2, intellectual disability, uncontrolled diabetes mellitus type 2, GERD, obstructive sleep apnea with noncompliance and OHS presenting to the hospital due to acute on chronic hypercapnic and hypoxemic respiratory failure secondary to acute CHF. Neurologic: Mildly delirious related to acute hypercapnia and respiratory distress. Avoid sedating agents. Pulmonary: Continue BiPAP support. Recent ABG demonstrates improvement of respiratory acidosis. Continue aggressive diuresis and control of blood pressure. Chest x- ray with evidence of diffuse pulmonary edema and bilateral effusions. Difficult to rule out superimposed pneumonia. Cardiovascular: Hypertensive urgency is improved with the use of nicardipine and IV metoprolol. Continue aggressive IV diuresis. I have ordered for a Lasix drip at 10 mg/h. We will give a 40 mg IV bolus. Gastrointestinal: N.p.o. while in respiratory distress. Renal: Patient is refusing a De Dios catheter. Continue IV diuretics as noted above. Repeat BMP pending. proBNP very elevated secondary to volume overload. Infectious disease: COVID-19 testing negative. Likely unable to get urinalysis. Blood cultures pending. MRSA screen ordered. Will start empiric levofloxacin. Hematologic: No significant issues at present. Endocrine: Hyperglycemia consult. VTE prophylaxis: On Eliquis for history of atrial fibrillation CODE STATUS: Full code Family at bedside: None available at bedside Disposition: Remain in the ICU I have personally spent 35 minutes of critical care time in the direct management of this patient. This is a life/limb threatening event. This includes time spent evaluating patient, direct bedside care, chart review, placing orders, interpretation of diagnostic studies, discussion with consultants, patient, and family members, as well as other required patient management activities. This time is exclusive of all separately billable procedures, and teaching time and separate from and in addition to any other critical care service time. Thank you for allowing us to participate in the care of this patient. History of Present Illness Reason for Consultation: Acute hypoxemic and hypercapnic respiratory failure secondary to CHF Attending Physician: Migue Laguna MD History of Present Illness 44-year-old male with a past medical history of morbid obesity (BMI of 50.1), chronic hypoxemic and hypercapnic respiratory failure, obesity hypoventilation syndrome, obstructive sleep apnea noncompliant with therapy, combined systolic and diastolic CHF (EF 25 to 30%) presenting to the hospital due to increasing shortness of breath. The patient is unable to give a reliable history due to his shortness of breath and BiPAP requirements. Notably, he was given 80 mg of Lasix in the ER along with 0.5 inch Nitropaste. He is currently on BiPAP. His proBNP is elevated. He is in acute hypercapnic respiratory failure with an elevated PCO2. He was very hypertensive in the ER. He has been in the emergency department and hospitalized on numerous occasions over the past 2 months. He is known to be noncompliant with therapies. He is currently refusing a De Dios catheter placement. It is difficult to make an accurate assessment of his input and output as he is urinating on the bed. Allergies Allergy/AdvReac Type Severity Reaction Status Date / Time ceftriaxone Allergy Severe SHORTNESS Verified 10/02/20 08:21 OF BREATH lidocaine Allergy Severe SHORTNESS Verified 10/02/20 08:21 OF BREATH, diaphoretic, hives procaine Allergy Severe SHORTNESS Verified 10/02/20 08:21 OF BREATH, diaphoretic, hives amoxicillin Allergy Intermediate HIVES/FACIAL Verified 10/02/20 08:21 SWELLING clavulanic acid Allergy Intermediate HIVES/FACIAL Verified 10/02/20 08:21 SWELLING lisinopril Allergy Intermediate HIVES Verified 10/02/20 08:21 acetaminophen AdvReac Mild NAUSEA Verified 10/02/20 08:21 albuterol AdvReac Mild proair Verified 10/02/20 08:21 "trouble taking breaths" Fish Containing Products AdvReac Unknown Verified 10/02/20 08:21 Home Medications Medication Instructions Recorded Confirmed Type nitroglycerin 0.4 mg sublingual 0.4 mg SUBLINGUAL UD PRN 04/24/19 10/01/20 History tablet (Nitrostat) cholecalciferol (vitamin D3) 50 50 mcg PO BID 10/04/19 10/01/20 History mcg (2,000 unit) tablet (Vitamin D3) dulaglutide 1.5 mg/0.5 mL 1.5 mg SUBCUT WK #2 ml 04/21/20 10/02/20 Rx subcutaneous pen injector (Trulicity) metoprolol succinate 100 mg 100 mg PO BID #60 tab 06/30/20 10/01/20 Rx tablet,extended release 24 hr aspirin 81 mg tablet,delayed 81 mg PO DAILY tab 07/10/20 10/01/20 History release (Aspirin Low Dose) apixaban 5 mg tablet (Eliquis) 5 mg PO BID tab 08/10/20 10/01/20 History atorvastatin 10 mg tablet 10 mg PO DAILY 08/10/20 10/01/20 History sacubitril 97 mg-valsartan 103 mg 1 tab PO BID 08/10/20 10/01/20 History tablet (Entresto) torsemide 20 mg tablet 80 mg PO BID 08/18/20 10/01/20 History spironolactone 25 mg tablet 50 mg PO QAM #30 tab 08/23/20 10/01/20 Rx (Aldactone) budesonide-formoterol HFA 160 2 inh INHALATION BID #10.2 g 09/27/20 10/02/20 Rx mcg-4.5 mcg/actuation aerosol inhaler (Symbicort) esomeprazole magnesium 20 mg 20 mg PO DAILY #30 cap 09/28/20 10/01/20 Rx capsule,delayed release (Nexium) Patient History Medical History Cellulitis of neck Chronic respiratory failure Dilatation of thoracic aorta Fatty liver Hearing loss of both ears Hypoxia Iliac aneurysm Left-sided weakness Lung nodule NICM (nonischemic cardiomyopathy) Pt admitted for elective ICD. Underwent procedure without any complications monitored over night and discharged home. Obstructive sleep apnea SOB (shortness of breath) Umbilical hernia Vitamin D insufficiency Previously deficient, taking Vit D supplementation Surgical History History of carpal tunnel surgery History of cholecystectomy S/P tonsillectomy Family History Father , age 57 of an [place]. Heart disease Myocardial infarction Mother , age 67 of a ruptured neck vessel Sudden Other Depression Lung disease No pertinent family history Denies family history of Ovarian cancer Prostate cancer Breast cancer Colorectal cancer Social History Smoking Status: Unknown if ever smoked Tobacco Type: Cigarettes Age Started Using Tobacco: 14; Age Quit Using Tobacco: 18; Cigarettes Per Day: 40-50; Second Hand Exposure: No; Hx Alcohol Use: Yes Alcohol type: other Hx Substance Use: No Preferred Language: Citizen Of [place] Communication Ability: Effective Visual Impairment: No Limitations Hearing Ability: Normal Dispatcher Electric Power Required: No Beliefs That Will Affect Care: None marital status: Current Living Situation: Spouse current occupational status: unemployed How many Children do You have: 0 Feels Safe at Home: Yes Childhood Exposure to Second-Hand Smoke: Yes Dental Care, Regularly: Yes Physical Activity Frequency: Does not Exercise Assistive Devices: Oxygen - at Night and Wheelchair Review of Systems Review of Systems: Difficult to obtain as patient is currently on BiPAP and in respiratory distress Physical Exam Physical Exam: Constitutional: Massively obese male in moderate distress. Eyes: Pupils are equal round and reactive to light. Conjunctivae are normal. Anicteric sclera. Ears nose, mouth and throat: BiPAP mask in place Neck: Trachea is midline. Large, thick neck. Respiratory: Clear to auscultation bilaterally. No use of accessory muscles. No significant clubbing noted. Cardiovascular: Regular rhythm. No obvious murmurs. Diffuse lower extremity edema. Gastrointestinal: Normal bowel sounds, soft, nontender and nondistended. No hepatosplenomegaly noted. Musculoskeletal: No cyanosis. Patient is able to move all extremities. Strength is 5 out of 5 in the upper and lower extremities. Skin: No rashes, warm dry and intact. Neurologic: No obvious focal neurological deficits seen. Psychiatric: Awake. Difficult to ascertain orientation. Appears anxious. Results & Data Results & Data ([facility]) Vital Signs (Past 12 Hours) Vital Signs Temp Pulse Pulse Resp BP Pulse Ox 10/02/20 12:35 123 H 139/87 10/02/20 12:00 98.8 F 10/02/20 11:00 98.6 F 23 10/02/20 10:30 27 H 97 10/02/20 10:17 104 H 10/02/20 09:49 120 H 26 H 96 10/02/20 09:46 180/131 H 97 10/02/20 09:30 103 H 30 H 205/118 H 95 10/02/20 09:15 109 H 31 H 175/116 H 92 10/02/20 09:00 104 H 30 H 184/109 H 93 10/02/20 08:30 118 H 34 H 198/127 H 93 10/02/20 08:15 123 H 28 H 186/115 H 96 10/02/20 08:00 112 H 30 H 158/114 H 89 L 10/02/20 07:45 111 H 31 H 161/106 H 89 L 10/02/20 07:31 119 H 38 H 91 10/02/20 07:16 126 H 39 H 212/133 H 93 10/02/20 07:02 45 H 91 10/02/20 07:00 122 H 43 H 207/150 H 90 10/02/20 06:45 134 H 31 H 232/150 H 93 10/02/20 06:35 140 H 35 H 92 10/02/20 06:32 138 H 64 H 90 10/02/20 06:25 97.9 F 30 H 90 10/02/20 06:21 138 H 32 H 92 10/02/20 06:20 88 L 10/02/20 06:18 142 H 27 H 90 Vital signs, labs and imaging reviewed Coding Level of Care Code Critical Care 1st 30-74 mins Diagnoses Acute respiratory failure with hypoxia and hypercarbia J96.01; J96.02 Diabetes mellitus type II, uncontrolled E11.65 Glycemic state: with hyperglycemia Chronic anticoagulation Z79.01 Flash pulmonary edema J81.0 Noncompliance Z91.19 Acute on chronic heart failure with reduced ejection fraction and diastolic dysfunction I50.43 Hypertensive urgency I16.0 Time Spent (min) 35 (1) Diabetes mellitus type II, uncontrolled Glycemic state: with hyperglycemia Qualified Code(s): E11.65 - Type 2 diabetes mellitus with hyperglycemia
--- NOTE | 2020-10-02 13:55 | Emergency Department Note ---
ED Visit Note I have personally evaluated this patient examined her and reviewed the pertinent labs and data. I have discussed the case with Asuncion Comer, the physician patient care assistant and agree with the plan. Please refer to the [facility] note. When I arrived to start my shift Asuncion Comer PA-C was in the room with this patient. He is in significant respiratory distress and on BiPAP. She had just started ultrasound guided IV. The patient was given Lasix. He has a history of CHF. Chest x-ray look like CHF. Blood gas initially showed a pH of 7.1 with an elevated PCO2. He does seem sleepy at times and there is concerned that he might need to be intubated. Respiratory came down and there was an air leak we readjusted this and his BiPAP and rechecked his blood gas and his ABG improved significantly where he was no longer significantly acidotic and CO2 is dropping. Clinically started to look better as well. Based on this we will continue the BiPAP and he will be admitted to the ICU for CHF/respiratory failure. .
--- NOTE | 2020-10-02 14:09 | Pharmacy Report ---
Pharmacy Glycemic Short Note 2 - Date of Service October 02, 2020 - Glycemic Short BSG Results (Last 24 hours): 10/02/20 10/02/20 10/02/20 06:40 06:43 10:56 Glucose 396 H* POC Glucose 296 H POC Glucose (other) 381 H* 10/02/20 10/02/20 12:43 13:13 Glucose 290 H POC Glucose 240 H POC Glucose (other) OUTPATIENT ANTIDIABETIC REGIMEN: * DULAGLUTIDE 1.5 MG sq WEEKLY * HbA1C = 12.5% ASSESSMENT: * Mr Huff is a 44 y/o M with a PMH of Type 2 DM who presents with acute respiratory failure. * He is currently on BiPAP and NPO. * Currently in hypertensive crisis and fluid overloaded so on nicardipine and furosemide infusions. * Due to NPO status, hyperglycemia, and unstable blood pressure, will start insulin infusion. PLAN FOR INPATIENT GLYCEMIC CONTROL: * insulin infusion per protocol with BSG range of 110-180 mg/dL PLAN FOR DISCHARGE: * TBD
[2020-10-02] MEDS: levoFLOXacin/D5W 500 MG/100 ML BAG IV SCH (14:23)
[2020-10-02 15:19] LABS: Appearance Urine Clear (Clear); Bilirubin Urine Negative (Negative); Blood Urine Negative (Negative); Color Urine Yellow; Glucose Urine UA 1+ (Negative); Ketones Urine Negative (Negative); Leukocyte Esterase Urine Negative (Negative); Nitrite Urine Negative (Negative); Protein Urine Negative (Negative); Specific Gravity Urine 1.007 (1.000-1.030); Urobilinogen Urine Negative (Negative)
[2020-10-02] MEDS ORDERED: VANCOMYCIN CONSULT ACTIVE PRN (16:34)
[2020-10-02] MEDS ORDERED: VANCOMYCIN HCL 2,750 MG in SODIUM CHLORIDE 0.9% 500 ML IV ONE (16:34)
--- NOTE | 2020-10-02 16:44 | Cardiology Consultation ---
Date of Consultation October 02, 2020 Assessment & Plan (1) Acute respiratory failure with hypoxia and hypercarbia: (2) CHF exacerbation: Most recent echocardiogram performed October, revealed severe global left ventricular hypokinesis LVEF in the range of 25 to 30%. Patient presents with fluid retention, respiratory acidosis, pH 7.16, PCO2 65, PO2 92, HCO3 23. Agree with critical care consultation and current measures including nicardipine infusion for blood pressure control, furosemide infusion, empiric antibiotic therapy. Topical nitrates for afterload reduction. Of note, patient has been on Eliquis 5 mg twice daily stemming back to a CT angiogram performed 06/07/2020 at [facility] that suggested a small nonocclusive filling defect in the left lower lobe pulmonary artery branches at that time consistent pulmonary embolism. No DVT was noted at that time. As for has been noted since the patient initially established with our practice in 2018, he has a longstanding history of nonadherence to his medications and frequent recurrent hospital stays. Despite use of multiple medical resources, adherence continues to be an issue. History of Present Illness Attending Physician: Migue Laguna MD History of Present Illness Mr Huff is a 44 year old male seen in cardiology consultation per the request of Dr Laguna for the evaluation of acute on chronic systolic heart failure, with noted presentation with respiratory distress, CO2 retention, hypoxia. Patient presented to the emergency room with progressive shortness of breath was noted to be in respiratory distress with pulse oximetry in the 80s. He has since been admitted to the intensive care unit, and he is currently on BiPAP, and is on a furosemide infusion at 10 mg/h, nicardipine infusion, and insulin infusion. Quantifying his urine output is somewhat challenging as he has been incontinent, but per my discussion with his nurse we estimate that he has had at least 3 L of urine output thus far. Has not the patient has a history of chronic systolic heart failure due to a nonischemic cardiomyopathy, and issues with regards to noncompliance. He missed recent outpatient cardiology follow-up visits scheduled for 08/30/2020 and again on 09/30/2020. History today is obtained from review of records. Patient opened his eyes however to command. Allergies Allergy/AdvReac Type Severity Reaction Status Date / Time ceftriaxone Allergy Severe SHORTNESS Verified 10/02/20 08:21 OF BREATH lidocaine Allergy Severe SHORTNESS Verified 10/02/20 08:21 OF BREATH, diaphoretic, hives procaine Allergy Severe SHORTNESS Verified 10/02/20 08:21 OF BREATH, diaphoretic, hives amoxicillin Allergy Intermediate HIVES/FACIAL Verified 10/02/20 08:21 SWELLING clavulanic acid Allergy Intermediate HIVES/FACIAL Verified 10/02/20 08:21 SWELLING lisinopril Allergy Intermediate HIVES Verified 10/02/20 08:21 acetaminophen AdvReac Mild NAUSEA Verified 10/02/20 08:21 albuterol AdvReac Mild proair Verified 10/02/20 08:21 "trouble taking breaths" Fish Containing Products AdvReac Unknown Verified 10/02/20 08:21 Home Medications Medication Instructions Recorded Confirmed Type nitroglycerin 0.4 mg sublingual 0.4 mg SUBLINGUAL UD PRN 04/24/19 10/01/20 History tablet (Nitrostat) cholecalciferol (vitamin D3) 50 50 mcg PO BID 10/04/19 10/01/20 History mcg (2,000 unit) tablet (Vitamin D3) dulaglutide 1.5 mg/0.5 mL 1.5 mg SUBCUT WK #2 ml 04/21/20 10/02/20 Rx subcutaneous pen injector (Trulicity) metoprolol succinate 100 mg 100 mg PO BID #60 tab 06/30/20 10/01/20 Rx tablet,extended release 24 hr aspirin 81 mg tablet,delayed 81 mg PO DAILY tab 07/10/20 10/01/20 History release (Aspirin Low Dose) apixaban 5 mg tablet (Eliquis) 5 mg PO BID tab 08/10/20 10/01/20 History atorvastatin 10 mg tablet 10 mg PO DAILY 08/10/20 10/01/20 History sacubitril 97 mg-valsartan 103 mg 1 tab PO BID 08/10/20 10/01/20 History tablet (Entresto) torsemide 20 mg tablet 80 mg PO BID 08/18/20 10/01/20 History spironolactone 25 mg tablet 50 mg PO QAM #30 tab 08/23/20 10/01/20 Rx (Aldactone) budesonide-formoterol HFA 160 2 inh INHALATION BID #10.2 g 09/27/20 10/02/20 Rx mcg-4.5 mcg/actuation aerosol inhaler (Symbicort) esomeprazole magnesium 20 mg 20 mg PO DAILY #30 cap 09/28/20 10/01/20 Rx capsule,delayed release (Nexium) Patient History Medical History Cellulitis of neck Chronic respiratory failure Dilatation of thoracic aorta Fatty liver Hearing loss of both ears Hypoxia Iliac aneurysm Left-sided weakness Lung nodule NICM (nonischemic cardiomyopathy) Pt admitted for elective ICD. Underwent procedure without any complications monitored over night and discharged home. Obstructive sleep apnea SOB (shortness of breath) Umbilical hernia Vitamin D insufficiency Previously deficient, taking Vit D supplementation Surgical History History of carpal tunnel surgery History of cholecystectomy S/P tonsillectomy Family History Father , age 57 of an CA. Heart disease Myocardial infarction Mother , age 67 of a ruptured neck vessel Sudden Other Depression Lung disease No pertinent family history Denies family history of Ovarian cancer Prostate cancer Breast cancer Colorectal cancer Social History Smoking Status: Unknown if ever smoked Tobacco Type: Cigarettes Age Started Using Tobacco: 14; Age Quit Using Tobacco: 18; Cigarettes Per Day: 40-50; Second Hand Exposure: No; Hx Alcohol Use: Yes Alcohol type: other Hx Substance Use: No Preferred Language: Mongolian Communication Ability: Effective Visual Impairment: No Limitations Hearing Ability: Normal [place] Measurer Required: No Beliefs That Will Affect Care: None marital status: Current Living Situation: Spouse current occupational status: unemployed How many Children do You have: 0 Feels Safe at Home: Yes Childhood Exposure to Second-Hand Smoke: Yes Dental Care, Regularly: Yes Physical Activity Frequency: Does not Exercise Assistive Devices: Oxygen - at Night and Wheelchair Review of Systems Review of Systems: Unobtainable due to reduced consciousness Physical Exam Physical Exam: Temp Pulse Resp BP Pulse Ox 36.9 C 106 H 28 H 122/82 97 10/02/20 16:00 10/02/20 16:00 10/02/20 14:01 10/02/20 14:01 10/02/20 14:01 Constitutional: + morbidly obese Respiratory: Auscultation: + diminished lung sounds Cardiovascular: Rate/Rhythm: regular rate Heart Sounds: no murmur Extremities: + edema (1+ edema) Neurologic: Lethargic opens eyes to commands, moves all 4 extremities Results & Data ([facility]) Vital Signs (Past 12 Hours) Vital Signs Temp Pulse Pulse Resp BP Pulse Ox 10/02/20 16:00 36.9 C 106 H 10/02/20 14:01 105 H 28 H 122/82 97 10/02/20 13:31 106 H 21 113/80 97 10/02/20 13:01 108 H 28 H 153/110 H 97 10/02/20 12:35 123 H 139/87 10/02/20 12:30 114 H 33 H 96 10/02/20 12:17 107 H 29 H 93 10/02/20 12:00 37.1 C 10/02/20 11:06 115 H 29 H 96 10/02/20 11:00 37 C 23 10/02/20 10:30 27 H 97 10/02/20 10:17 104 H 10/02/20 09:49 120 H 26 H 96 10/02/20 09:46 180/131 H 97 10/02/20 09:30 103 H 30 H 205/118 H 95 10/02/20 09:15 109 H 31 H 175/116 H 92 10/02/20 09:00 104 H 30 H 184/109 H 93 10/02/20 08:30 118 H 34 H 198/127 H 93 10/02/20 08:15 123 H 28 H 186/115 H 96 10/02/20 08:00 112 H 30 H 158/114 H 89 L 10/02/20 07:45 111 H 31 H 161/106 H 89 L 10/02/20 07:31 119 H 38 H 91 10/02/20 07:16 126 H 39 H 212/133 H 93 10/02/20 07:02 45 H 91 10/02/20 07:00 122 H 43 H 207/150 H 90 10/02/20 06:45 134 H 31 H 232/150 H 93 10/02/20 06:35 140 H 35 H 92 10/02/20 06:32 138 H 64 H 90 10/02/20 06:25 36.6 C 30 H 90 10/02/20 06:21 138 H 32 H 92 10/02/20 06:20 88 L 10/02/20 06:18 142 H 27 H 90 Laboratory Results Cardiac Enzymes 10/02/20 Range/Units 06:43 AST 25 (15-37) U/L Troponin I < 0.015 (0-0.045) ng/ml Coagulation 10/02/20 Range/Units 06:35 PT 10.5 (9.0-12.0) Seconds APTT 25.4 (21.0-31.0) Seconds CBC 10/02/20 Range/Units 06:43 WBC 15.76 H (4.8-10.8) K/uL RBC 5.22 (4.7-6.1) M/uL Hgb 15.2 (14.0-18.0) g/dL Hct 46.2 (42-52) % Plt Count 262 (130-400) K/uL Neut # (Auto) 11.97 H (1.4-6.5) K/uL Lymph # (Auto) 2.70 (1.2-3.4) K/uL [place] # (Auto) 0.84 H (0.11-0.59) K/uL Eos # (Auto) 0.09 (0-0.5) K/uL Baso # (Auto) 0.03 (0-0.2) K/uL Comprehensive Metabolic Panel 10/02/20 10/02/20 Range/Units 06:43 12:43 Sodium 137 138 (136-145) mmol/L Potassium 4.0 4.2 (3.5-5.1) mmol/L Chloride 106 105 (98-107) mmol/L Carbon Dioxide 21 30 (21-32) mmol/L BUN 12 12 (7-18) mg/dl Creatinine 1.22 1.11 (0.6-1.4) mg/dl Glucose 396 H* 290 H (70-99) mg/dl Calcium 9.1 8.7 (8.5-10.1) mg/dl AST 25 (15-37) U/L ALT 33 (12-78) U/L Alkaline Phosphatase 115 (45-117) U/L Total Protein 8.2 (6.4-8.2) gm/dl Albumin 3.4 (3.4-5.0) gm/dl Intake and Output 10/02/20 10/02/20 10/02/20 06:59 14:59 22:59 Intake Total 240.0 / 340.0 100 / 340.0 Output Total 2500 / 3250 750 / 3250 Balance -2260.0 / -2910.0 -650 / -2910.0 Intake: IV 240.0 / 340.0 100 / 340.0 levoFLOXacin/D5W 500 mg In 100 100 / 100 ml @ 100 mls/hr IV Q24H [facility] Rx# :[id number] niCARdipine 25 mg In Sodium 240.0 / 240.0 Chloride 0.9% 240 ml @ 5 MG/HR 50 mls/hr IV .Q5H SUKHWINDER Rx#: [id number] Output: Urine 2500 / 3250 750 / 3250 Other: # Unmeasured Voids 1 Weight 176.3 kg 163 kg Weight Measurement Method Chair Scale Built in [facility] Patient Weight 10/03/20 06:59 Weight 163 kg Diagnostic Findings EKG performed today revealed sinus tachycardia 134 bpm, lateral ST changes likely due to rate related to ischemia from tachycardia and hypoxia. Chest x-ray consistent with pulmonary edema small pleural effusions (1) CHF exacerbation Heart failure type: unspecified Qualified Code(s): I50.9 - Heart failure, unspecified
[2020-10-02] MEDS ORDERED: LINEZOLID CONSULT ACTIVE PRN (16:54)
[2020-10-02] MEDS ORDERED: FUROSEMIDE 40 MG in SYRINGE 0 ML IV SCH (17:00)
[2020-10-02] MEDS: LINEZOLID 600 MG/300 ML BAG IV SCH (17:17)
[2020-10-02] MEDS: METOPROLOL SUCC 50MG EXT REL TAB PO SCH (20:26)
[2020-10-02] MEDS: APIXABAN 5 MG TABLET PO SCH (20:27)
[2020-10-03] MEDS: NITROGLYCERIN 2% OINTMENT 30GM TUBE EXT SCH ×2 (00:07→05:41)
[2020-10-03 05:33] LABS: Basophils # (auto) 0.01 K/uL (0-0.2); Basophils % (auto) 0.1 %; Eosinophils # (auto) 0.11 K/uL (0-0.5); Eosinophils % (auto) 1.1 %; Hematocrit (blood only) 42.4 % (42-52); Hemoglobin 13.8 g/dL (14.0-18.0); Immature Granulocytes # (auto) 0.03 K/uL (0.00-0.02); Immature Granulocytes % (auto) 0.3 %; Lymphocytes # (auto) 1.86 K/uL (1.2-3.4); Mean Corpuscular Hemoglobin 28.5 pg (25-34); Mean Corpuscular Hgb Conc 32.5 g/dL (32-36); Mean Corpuscular Volume 87.4 fL (80-100); Mean Platelet Volume 10.1 fL (7.4-10.4); Monocytes # (auto) 0.94 K/uL (0.11-0.59); Monocytes % (auto) 9.1 %; Neutrophils # (auto) 7.41 K/uL (1.4-6.5); Neutrophils % (auto) 71.4 %; Platelet Count 208 K/uL (130-400); RDW Coefficient of Variation 15.3 % (11.5-14.5); RDW Standard Deviation 48.9 fL (36.4-46.3); Red Blood Count 4.85 M/uL (4.7-6.1); White Blood Count 10.36 K/uL (4.8-10.8)
[2020-10-03] MEDS: LINEZOLID 600 MG/300 ML BAG IV SCH ×2 (05:42→17:41)
[2020-10-03 06:20] LABS: BUN Creatinine Ratio 10.3 (10-20); Calcium 8.6 mg/dl (8.5-10.1); Creatinine Clr Calc Pharmacy 132.5 ml/min; Est GFR (African American) 99.1 ml/min; Est GFR (Non-African American) 85.5 ml/min; Magnesium 1.8 mg/dl (1.8-2.4); Phosphorus 5.3 mg/dl (2.5-4.9); Potassium 3.3 mmol/L (3.5-5.1)
[2020-10-03] MEDS ORDERED: POTASSIUM CHLORIDE CRTAB 20 MEQ TABCR PO STA (07:01)
[2020-10-03] MEDS: POTASSIUM CHLORIDE / WTR 10 MEQ/100 ML PLCT IV SCH ×2 (07:46→10:23)
[2020-10-03] MEDS: FUROSEMIDE 100 MG in DEXTROSE 5% 90 ML IV SCH (07:54)
[2020-10-03] MEDS ORDERED: INSULIN GLARGINE SOLOSTAR 100 UNITS/ML 3 ML PEN SC ONE (08:00)
[2020-10-03] MEDS: INSULIN ASPART 100 UNITS/ML 3 ML PEN SC SCH ×5 (08:03→20:56)
[2020-10-03] MEDS: niCARdipine 25 MG in SODIUM CHLORIDE 0.9% 240 ML IV SCH (08:10)
--- NOTE | 2020-10-03 08:13 | XRay Report ---
XR chest 1V portable CLINICAL HISTORY: f/u COMPARISON STUDY: Chest radiograph October 02, 2020. FINDINGS: There is no pneumothorax or pleural effusion. Cardiomegaly is unchanged. Interstitial thick ening and bilateral opacities have significantly improved. Left subclavian pacer is in place. IMPRESSION: 1. Significant improvement in interstitial thickening and bilateral opacities since prior exam. 2. Cardiomegaly. ACT 112: Negative or not required by law. Electronically signed by: Eyad Rosario M.D. 10/03/2020 8:12 AM
--- NOTE | 2020-10-03 08:43 | Hospitalist Progress Note ---
Date of Service October 03, 2020 Assessment & Plan (1) Acute respiratory failure with hypoxia and hypercarbia: Plan: Continue on BiPAP, currently maintaining sats on FiO2 30%. Aim O2 sats > 90% Stable for downgrade to PCU (2) Acute respiratory acidosis: Plan: Management as above with BiPAP. (3) Acute on chronic congestive heart failure: Plan: Switch to Lasix 40mg IV BID Nitro patch 2% 1 inch paste Strict I&Os - negative 3707 ml yesterday Daily weight (4) Bacteremia: Plan: 1/2 GPC present. Suspect most likely contaminant but will continue Linezolid and Levaquin started by the ICU pending full identification. (5) Pneumonia: Plan: Possible diagnosis. Antibiotics started in ICU. Continue Linezolid and Levaquin as above. Consider short 5 day course. (6) Noncompliance: Plan: Notable history of non-compliance and does not excelsior picker medication. His medication list is NOT what he takes at home and will lead to renal failure and hypotension if those doses are restarted in hospital. Will need to clarify with patient once respiratory status is better. (7) AICD (automatic cardioverter/defibrillator) present: Plan: Noted (8) Hypertensive emergency: Plan: Stop nicardipine IV drip. No longer requiring this (9) Obstructive sleep apnea: Plan: Requires BiPAP HS chronically. (10) Diabetes mellitus type II, uncontrolled: Plan: HbA1C 12.5 in August, unclear why much worse controlled than last year but patient is known to be non-compliant. No need to repeat this. Appreciate pharmacy consult for glycemic control (11) COPD (chronic obstructive pulmonary disease): Plan: Continue his usual Symbicort Plan: VTE prophylaxis - chronic apixaban (prior PE) GI prophylaxis - famotidine 20mg IV Disposition - stable for downgrade to PCU Admission and Anticipated Discharge Date Admission Date: October 02, 2020 Subjective Much improved shortness of breath since admission. No chest pain. Having hemoptysis which is not unusual when he is fluid overloaded. Reports he suddenly deteriorated at home after falling asleep with his BiPAP on but the house was too hot. When he woke up to turn down the temperature he felt so short of breath he couldn't move. Currently in the process of trying to find a new home. Review of Systems Review of Systems: All systems reviewed & are unremarkable except as noted in HPI & below Physical Exam Constitutional: + acute distress (respiratory) and + morbidly obese Eyes: + anicteric sclerae; normal pupil size Neck: trachea midline, no thyromegaly Respiratory: + respiratory distress, + labored breathing and + uses accessory muscles; + abnormal respiratory effort, not tachypneic, expiratory phase not prolonged and no audible wheezes Auscultation: + breath sounds absent (bibasal) and + diminished lung sounds (throughout); no crackles and no wheezes Cardiovascular: Rate/Rhythm: regular rate and regular rhythm Heart Sounds: no murmur (distant heart sounds) Extremities: normal capillary refill and + pedal edema (pitting 3+ to thighs equal b/l) Gastrointestinal (Abdomen): Inspection/Auscultation: + abdomen distended; + abdomen abnormal to inspection (obese, multiple non cellulitis wounds on lower abdomen) Percussion/Palpation: abdomen soft; abdomen nontender, no guarding and abdomen not rigid Skin: no rashes, warm and dry (limited ability to inspect skin due to obesity and respiratory distress) Neurologic: moves all extremities, awake and + confused Psychiatric: Orientation: alert, oriented to person, oriented to place and oriented to time Insight: + poor insight Results & Data Results & Data ([facility]) Vital Signs (Past 12 Hours) Vital Signs Temp Pulse Resp BP Pulse Ox 10/03/20 06:02 83 20 121/86 90 10/03/20 05:01 93 H 17 136/89 98 10/03/20 04:01 36.8 C 86 27 H 130/87 97 10/03/20 04:00 24 96 10/03/20 03:43 80 20 97 10/03/20 03:01 82 24 128/83 94 10/03/20 02:01 24 116/85 96 10/03/20 01:01 80 21 112/73 96 10/03/20 00:01 36.6 C 84 27 H 124/81 97 10/03/20 00:00 18 94 10/02/20 23:15 90 24 93 10/02/20 23:01 92 H 18 111/81 94 10/02/20 22:31 88 23 103/78 93 10/02/20 22:01 82 23 138/93 95 10/02/20 21:32 94 H 19 123/85 96 10/02/20 20:46 109 H 16 118/84 89 L PG Care Time/CCT Total # of Minutes Spent Total Time Spent with Patient: Total time spent is greater than 50% in coordination of care (as documented) at patient's floor/unit and/or counseling patient: Coding Level of Care Code 05192 Subseq Hosp Care Lvl 3 Diagnoses Acute respiratory failure with hypoxia and hypercarbia J96.01; J96.02 Acute respiratory acidosis E87.2 Acute on chronic congestive heart failure I50.43 Heart failure type: combined systolic and diastolic Noncompliance Z91.19 AICD (automatic cardioverter/defibrillator) present Z95.810 Hypertensive emergency I16.1 Obstructive sleep apnea G47.33 Diabetes mellitus type II, uncontrolled E11.65 Glycemic state: with hyperglycemia COPD (chronic obstructive pulmonary disease) J44.9 COPD type: unspecified COPD Bacteremia R78.81 Pneumonia J18.9 (1) Acute on chronic congestive heart failure Heart failure type: combined systolic and diastolic Qualified Code(s): I50.43 - Acute on chronic combined systolic (congestive) and diastolic (congestive) heart failure (2) Diabetes mellitus type II, uncontrolled Glycemic state: with hyperglycemia Qualified Code(s): E11.65 - Type 2 diabetes mellitus with hyperglycemia (3) COPD (chronic obstructive pulmonary disease) COPD type: unspecified COPD Qualified Code(s): J44.9 - Chronic obstructive pulmonary disease, unspecified
--- NOTE | 2020-10-03 08:47 | Critical Care Progress Note ---
Date of Service October 03, 2020 Assessment & Plan (1) Acute respiratory failure with hypoxia and hypercarbia: (2) Diabetes mellitus type II, uncontrolled: (3) Chronic anticoagulation: (4) Flash pulmonary edema: (5) Noncompliance: (6) Acute on chronic heart failure with reduced ejection fraction and diastolic dysfunction: (7) Hypertensive urgency: Plan: 44-year-old male with a past medical history of morbid obesity, combined systolic and diastolic CHF, diabetes mellitus type 2, intellectual disability, uncontrolled diabetes mellitus type 2, GERD, obstructive sleep apnea with noncompliance and OHS presenting to the hospital due to acute on chronic hypercapnic and hypoxemic respiratory failure secondary to acute CHF. Neurologic: No issues at present. Pulmonary: Chest x-ray respiratory status with substantial improvement post diuresis. Cont inue BiPAP at night. Patient has a history of poor compliance with noninvasive ventilation. Importance of compliance addressed today. Cardiovascular: He has a history of severe cardiomyopathy and he is followed by cardiology. Hypertensive urgency is resolving. Continue oral medications. Transition from Lasix drip to 40 mg twice daily of IV Lasix. He did have a run of V. tach. His potassium was low. This is currently being replaced. Gastrointestinal: Advance diet as tolerated. Renal: He continues to refuse a [place] catheter. It is difficult to obtain accurate output urine data. So far it appears that he is at least 5 L negative with the Lasix drip. We will transition to 40 mg twice daily. Infectious disease: COVID-19 testing negative. Continue linezolid and levofloxacin. Blood cultures growing gram-positive cocci in clusters. Possible contaminant. Repeat blood cultures today. Unfortunately, it appears a urinalysis has not been obtained. Hematologic: No significant issues at present. Endocrine: Hyperglycemia pharmacy consult. VTE prophylaxis: On Eliquis for history of atrial fibrillation CODE STATUS: Full code Family at bedside: None available at bedside Disposition: Transfer to PCU. Discussed with hospitalist. Admission and Anticipated Discharge Date Admission Date: October 02, 2020 Subjective Patient seen and examined this morning. He is currently off BiPAP. His breathing pattern is much improved from yesterday. He notes less shortness of breath. He did note some sharp pains in his abdomen and leg earlier today. He had a run of V. tach this morning. His potassium is low and is currently being replenished. He was refusing taking oral potassium, but he is willing to take it if it is dissolved in orange juice. He denies any chest pain. He is asking about whether he can get a heart transplant. I indicated to him that this would need follow-up as an outpatient regarding such matters. Review of Systems Review of Systems: All systems reviewed & are unremarkable except as noted in HPI & below Physical Exam Physical Exam: Constitutional: Morbidly obese male in no significant distress. Laying in bed. Eyes: Pupils are equal round and reactive to light. Conjunctivae are normal. Anicteric sclera. Ears nose, mouth and throat: Nasal cannula in place. No obvious abnormalities. Neck: Trachea is midline. Large, thick neck. Respiratory: Clear to auscultation bilaterally. No use of accessory muscles. No significant clubbing noted. Cardiovascular: Regular rhythm. No obvious murmurs. Diffuse lower extremity edema. Gastrointestinal: Normal bowel sounds, soft, nontender and nondistended. No hepatosplenomegaly noted. Musculoskeletal: No cyanosis. Patient is able to move all extremities. Strength is 5 out of 5 in the upper and lower extremities. Skin: No rashes, warm dry and intact. Neurologic: No obvious focal neurological deficits seen. Psychiatric: Alert and awake x3 Results & Data Results & Data ([facility]) Vital Signs (Past 12 Hours) Vital Signs Temp Pulse Resp BP Pulse Ox 10/03/20 06:02 83 20 121/86 90 10/03/20 05:01 93 H 17 136/89 98 10/03/20 04:01 98.2 F 86 27 H 130/87 97 10/03/20 04:00 24 96 10/03/20 03:43 80 20 97 10/03/20 03:01 82 24 128/83 94 10/03/20 02:01 24 116/85 96 10/03/20 01:01 80 21 112/73 96 10/03/20 00:01 97.9 F 84 27 H 124/81 97 10/03/20 00:00 18 94 10/02/20 23:15 90 24 93 10/02/20 23:01 92 H 18 111/81 94 10/02/20 22:31 88 23 103/78 93 10/02/20 22:01 82 23 138/93 95 10/02/20 21:32 94 H 19 123/85 96 10/02/20 20:46 109 H 16 118/84 89 L Vital signs, labs and imaging personally reviewed Coding Level of Care Code 87052 Subseq Hosp Care Lvl 3 Diagnoses Acute respiratory failure with hypoxia and hypercarbia J96.01; J96.02 Diabetes mellitus type II, uncontrolled E11.65 Glycemic state: with hyperglycemia Chronic anticoagulation Z79.01 Flash pulmonary edema J81.0 Noncompliance Z91.19 Acute on chronic heart failure with reduced ejection fraction and diastolic dysfunction I50.43 Hypertensive urgency I16.0 (1) Diabetes mellitus type II, uncontrolled Glycemic state: with hyperglycemia Qualified Code(s): E11.65 - Type 2 diabetes mellitus with hyperglycemia
[2020-10-03] MEDS: ASPIRIN 81 MG ECTAB PO SCH (10:23)
[2020-10-03] MEDS: APIXABAN 5 MG TABLET PO SCH ×2 (10:23→20:55)
[2020-10-03] MEDS: ATORVASTATIN 10 MG TAB PO SCH (10:24)
[2020-10-03] MEDS: FLUTICASONE/VILANTEROL 200/25MCG 14 PUFFS/INHALER INH SCH (10:24)
[2020-10-03] MEDS: METOPROLOL SUCC 50MG EXT REL TAB PO SCH ×2 (10:25→20:58)
[2020-10-03] MEDS: FAMOTIDINE 20 MG in SYRINGE 3 ML IV SCH (10:25)
[2020-10-03] MEDS: PANTOprazole 40 MG TAB PO SCH (10:25)
--- NOTE | 2020-10-03 11:05 | Cardiology Progress Note ---
Date of Service October 03, 2020 Assessment & Plan (1) Acute respiratory failure with hypoxia and hypercarbia: (2) CHF exacerbation: (3) Bacteremia: Plan: Most recent echocardiogram performed October, revealed severe global left ventricular hypokinesis LVEF in the range of 25 to 30%. Supplement potassium. Continue furosemide 40 mg IV twice daily. Continue Eliquis given history of PE, and for VTE prophylaxis. Continue metoprolol succinate 100 mg twice daily Discontinue topical nitroglycerin as blood pressures have improved. He is no longer on nicardipine or insulin infusions. Potassium repleted by the ICU team this morning. 1 of 2 blood cultures preliminarily positive for gram-positive cocci in clusters. Question if this is related to cellulitis with noted erythema of the skin on the anterior abdominal wall. Continue empiric antibiotics, repeat cultures already obtained. Admission and Anticipated Discharge Date Admission Date: October 02, 2020 Subjective Patient seen in follow-up. He is off of BiPAP. He is more comfortable. His only subjective concern is whether or not he may eat. He does feel generalized illness however. Physical Exam Physical Exam: Temp Pulse Resp BP Pulse Ox 36.8 C 92 H 26 H 139/97 96 10/03/20 04:01 10/03/20 10:02 10/03/20 10:02 10/03/20 10:02 10/03/20 10:02 Constitutional: Chronically ill in appearance Respiratory: Auscultation: + diminished lung sounds (Decreased breath sounds bilaterally at the bases) Cardiovascular: Rate/Rhythm: regular rate and regular rhythm Heart Sounds: no murmur Extremities: + edema (1+ lower extremity edema) Gastrointestinal (Abdomen): normal bowel sounds, soft, nontender, no hepatosplenomegaly Skin: Multiple erythematous lesions on his anterior abdomen consistent with superficial skin ulcerations of varying degrees of healing. Neurologic: Follows commands Results & Data ([facility]) Vital Signs (Past 12 Hours) Vital Signs Temp Pulse Pulse Resp BP Pulse Ox Pulse Ox 10/03/20 10:02 92 H 26 H 139/97 96 10/03/20 09:02 87 21 135/97 95 10/03/20 08:00 84 22 140/100 96 10/03/20 07:01 80 80 20 124/84 96 10/03/20 07:00 95 10/03/20 06:02 83 20 121/86 90 10/03/20 05:01 93 H 17 136/89 98 10/03/20 04:01 36.8 C 86 27 H 130/87 97 10/03/20 04:00 24 96 10/03/20 03:43 80 20 97 10/03/20 03:01 82 24 128/83 94 10/03/20 02:01 24 116/85 96 10/03/20 01:01 80 21 112/73 96 10/03/20 00:01 36.6 C 84 27 H 124/81 97 10/03/20 00:00 18 94 10/02/20 23:15 90 24 93 10/02/20 23:01 92 H 18 111/81 94 Laboratory Results CBC 10/03/20 Range/Units 05:21 WBC 10.36 (4.8-10.8) K/uL RBC 4.85 (4.7-6.1) M/uL Hgb 13.8 L (14.0-18.0) g/dL Hct 42.4 (42-52) % Plt Count 208 (130-400) K/uL Neut # (Auto) 7.41 H (1.4-6.5) K/uL Lymph # (Auto) 1.86 (1.2-3.4) K/uL [place] # (Auto) 0.94 H (0.11-0.59) K/uL Eos # (Auto) 0.11 (0-0.5) K/uL Baso # (Auto) 0.01 (0-0.2) K/uL Comprehensive Metabolic Panel 10/02/20 10/03/20 Range/Units 12:43 05:21 Sodium 138 140 (136-145) mmol/L Potassium 4.2 3.3 L D (3.5-5.1) mmol/L Chloride 105 102 (98-107) mmol/L Carbon Dioxide 30 32 (21-32) mmol/L BUN 12 11 (7-18) mg/dl Creatinine 1.11 1.06 (0.6-1.4) mg/dl Glucose 290 H 108 H (70-99) mg/dl Calcium 8.7 8.6 (8.5-10.1) mg/dl Intake and Output 10/02/20 10/03/20 10/03/20 22:59 06:59 14:59 Intake Total 801.620 / 1059.394 17.774 / 1059.394 500 / 500 Output Total 2250 / 5550 800 / 5550 750 / 750 Balance -1448.380 / -4490.606 -782.226 / -4490.606 -250 / -250 Intake: IV 801.620 / 1059.394 17.774 / 1059.394 500 / 500 Furosemide 100 mg In Dextrose 5 91.5 / 91.5 100 / 100 % 90 ml @ 10 MG/HR 10 mls/hr IV .Q10H [facility] Rx#:[id number] Insulin Regular 250 units In 60.12 / 77.894 17.774 / 77.894 Sodium Chloride 0.9% 247.5 ml @ 0 UNITS/HR IV .Q0M [facility] Rx#: [id number] Linezolid 600 mg In 300 ml @ 300 / 300 300 / 300 200 mls/hr IV Q12H [facility] Rx#: [id number] Potassium Chloride / Wtr 10 meq 100 / 100 In 100 ml @ 100 mls/hr IV Q1H [facility] Rx#:[id number] levoFLOXacin/D5W 500 mg In 100 100 / 100 ml @ 100 mls/hr IV Q24H [facility] Rx# :[id number] niCARdipine 25 mg In Sodium 250.000 / 490.000 Chloride 0.9% 240 ml @ 2.5 MG/ HR 25 mls/hr IV .Q10H [facility] Rx#: [id number] Output: Urine 2250 / 5550 800 / 5550 750 / 750 Other: Other Intake Source npo npo Weight 163 kg 158 kg Weight Measurement Method Built in [facility] (1) CHF exacerbation Heart failure type: unspecified Qualified Code(s): I50.9 - Heart failure, unspecified
--- NOTE | 2020-10-03 12:40 | Pharmacy Report ---
Pharmacy Glycemic Short Note 2 - Date of Service October 03, 2020 - Glycemic Short BSG Results (Last 24 hours): 10/02/20 10/02/20 10/02/20 12:43 13:13 14:32 Glucose 290 H POC Glucose 240 H 215 H 10/02/20 10/02/20 10/02/20 15:33 16:27 18:27 Glucose POC Glucose 191 H 180 H 128 H 10/02/20 10/02/20 10/02/20 20:17 21:12 21:38 Glucose POC Glucose 91 73 78 10/02/20 10/02/20 10/03/20 22:06 23:02 00:11 Glucose POC Glucose 134 H 126 H 108 H 10/03/20 10/03/20 10/03/20 01:10 02:26 03:16 Glucose POC Glucose 97 97 97 10/03/20 10/03/20 10/03/20 04:40 05:21 05:49 Glucose 108 H POC Glucose 98 109 H 10/03/20 10/03/20 07:43 11:17 Glucose POC Glucose 148 H 162 H OUTPATIENT ANTIDIABETIC REGIMEN: * DULAGLUTIDE 1.5 MG sq WEEKLY * HbA1C = 12.5% ASSESSMENT: 10/03 * Pt meets criteria to transition to transition from IV insulin infusion to SQ basal bolus insulin based on BSGs and insulin drip rate * Pt is well known to pharmacy from previous admissions/glycemic consults. Will use SQ basal bolus insulin regimen similar to previous admissions * Pt is ordered a diet but likely will not eat well since he is unable to come off of bipap- will dose conservatively as if patient were NPO and titrate based on BSG trends. 10/02 * Mr Huff is a 44 y/o M with a PMH of Type 2 DM who presents with acute respiratory failure. * He is currently on BiPAP and NPO. * Currently in hypertensive crisis and fluid overloaded so on nicardipine and furosemide infusions. * Due to NPO status, hyperglycemia, and unstable blood pressure, will start insulin infusion. PLAN FOR INPATIENT GLYCEMIC CONTROL: * DC/Stop IV insulin infusion * Basal insulin * Give basal insulin with Lantus 15 units SQ x 1 dose this AM, then, 8 units SQ BID * Bolus insulin * NovoLog per scale ACHS * Goal range 110-140 mg/dl * CF = 25 mg/dl/unit * CR = 9 PLAN FOR DISCHARGE: * TBD
[2020-10-03] MEDS: levoFLOXacin/D5W 500 MG/100 ML BAG IV SCH (13:25)
[2020-10-03] MEDS: FUROSEMIDE 40 MG in SYRINGE 0 ML IV SCH (20:55)
[2020-10-03] MEDS ORDERED: INSULIN GLARGINE SOLOSTAR 100 UNITS/ML 3 ML PEN SC SCH (21:00)
[2020-10-04] MEDS: LINEZOLID 600 MG/300 ML BAG IV SCH ×2 (04:54→16:48)
[2020-10-04 05:58] LABS: Calcium 8.4 mg/dl (8.5-10.1); Creatinine Clr Calc Pharmacy 115.5 ml/min; Est GFR (African American) 83.6 ml/min; Est GFR (Non-African American) 72.2 ml/min; Potassium 3.7 mmol/L (3.5-5.1)
--- NOTE | 2020-10-04 07:36 | Hospitalist Progress Note ---
Date of Service October 04, 2020 Assessment & Plan (1) Acute respiratory failure with hypoxia and hypercarbia: Plan: able to titrate to nc after modest diuresis, continue to support, may need Bipap at night Aim O2 sats > 90% downgrade to PCU (2) Acute respiratory acidosis: Plan: resolved (3) Acute on chronic congestive heart failure: Plan: Lasix 40mg IV BID( was on outpt torsemide) Nitro patch 2% 1 inch paste will stop 10/02 restart entresto, metoprolol Strict I&Os - daily weights (4) Bacteremia: Plan: 02/15 GPC present. Suspect most likely contaminant antibiotics changed to po for 5 day course (5) Pneumonia: Plan: Possible diagnosis. Antibiotics started in ICU. 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 His medication list is NOT what he takes at home and will lead to renal failure and hypotension if those doses are restarted in hospital. Will need to clarify with patient once respiratory status is better. (7) AICD (automatic cardioverter/defibrillator) present: Plan: Noted (8) Hypertensive emergency: Plan: Stop nicardipine IV drip. No longer requiring this (9) Obstructive sleep apnea: Plan: Requires BiPAP HS chronically. (10) Diabetes mellitus type II, uncontrolled: Plan: HbA1C 12.5 in August, unclear why much worse controlled than last year but patient is known to be non-compliant. No need to repeat this. Appreciate pharmacy consult for glycemic control (11) COPD (chronic obstructive pulmonary disease): Plan: Continue his usual Symbicort Plan: VTE prophylaxis - chronic apixaban (prior PE) GI prophylaxis - famotidine 20mg IV Disposition - stable for downgrade to PCU Admission and Anticipated Discharge Date Admission Date: October 02, 2020 Subjective pt states that overall he is feeling better, but has many somatic complaints, concern for blood cultures and systolic heart failure are at the forefront Review of Systems Review of Systems: Mild distress and fatigue no headache, no visual changes no speech or swallowing issues intremittent chest pain when moving or laying down no shortness of breath, hemoptysis in am according to pt not corroboarted here no abdominal pain, nausea or vomiting, diarrhea or constipation no dysuria, hematuria or frequency no focal joint pain significant le swelling no back pain, CVA tenderness or radicular pain no bruising or rashes no focal signs of weakness or numbness or altered sensation no complaints of anxiety or depression.. Physical Exam Physical Exam: The patient appeared well nourished and normally developed. Vital signs as documented. Head exam is normocephalic atraumatic Neck is with difficult to asses but suspected JVD,NO thyromegaly, or carotid bruits. Lungs are bilateral rales and poor effort Cardiac exam, Rhythm is regular.. No murmurs, rubs or gallops. Abdominal exam reveals normal bowel sounds, soft non tender, no masses, area of cellulitis maybe associated with intertrigo, pt was sitting in chair will examine in bed when able Extremities are 2 +edematous and both pedal pulses are present Neurologic exam is alert and oriented, no focal loss of strength or sensation Skin is without bruises or rashes Psychologically is without concerns for anxiety or depression Results & Data Results & Data ([facility]) Vital Signs (Past 12 Hours) Vital Signs Temp Pulse Resp BP Pulse Ox 10/04/20 05:32 65 22 104/76 94 10/04/20 04:31 73 21 123/71 99 10/04/20 04:22 97.9 F 10/04/20 03:31 71 20 116/87 97 10/04/20 03:17 79 20 97 10/04/20 02:32 70 24 108/83 94 10/04/20 01:31 78 24 113/74 96 10/04/20 01:07 78 22 97 10/04/20 00:31 78 33 H 127/94 96 10/04/20 00:24 98.6 F 10/03/20 23:31 84 29 H 123/75 93 10/03/20 22:31 86 24 117/89 94 10/03/20 21:32 94 H 20 135/82 97 10/03/20 21:00 97.9 F 90 10/03/20 20:31 90 20 130/100 95 PG Care Time/CCT Total # of Minutes Spent Total Time Spent with Patient: Total time spent is greater than 50% in coordination of care (as documented) at patient's floor/unit and/or counseling patient: Coding Diagnoses Acute respiratory failure with hypoxia and hypercarbia J96.01; J96.02 Acute respiratory acidosis E87.2 Acute on chronic congestive heart failure I50.43 Heart failure type: combined systolic and diastolic Bacteremia R78.81 Pneumonia J18.9 Noncompliance Z91.19 AICD (automatic cardioverter/defibrillator) present Z95.810 Hypertensive emergency I16.1 Obstructive sleep apnea G47.33 Diabetes mellitus type II, uncontrolled E11.65 Glycemic state: with hyperglycemia COPD (chronic obstructive pulmonary disease) J44.9 COPD type: unspecified COPD (1) Acute on chronic congestive heart failure Heart failure type: combined systolic and diastolic Qualified Code(s): I50.43 - Acute on chronic combined systolic (congestive) and diastolic (congestive) heart failure (2) Diabetes mellitus type II, uncontrolled Glycemic state: with hyperglycemia Qualified Code(s): E11.65 - Type 2 diabetes mellitus with hyperglycemia (3) COPD (chronic obstructive pulmonary disease) COPD type: unspecified COPD Qualified Code(s): J44.9 - Chronic obstructive pulmonary disease, unspecified
[2020-10-04] MEDS: INSULIN ASPART 100 UNITS/ML 3 ML PEN SC SCH ×4 (08:29→20:45)
[2020-10-04] MEDS: INSULIN GLARGINE SOLOSTAR 100 UNITS/ML 3 ML PEN SC SCH ×2 (08:29→20:45)
[2020-10-04] MEDS: ASPIRIN 81 MG ECTAB PO SCH (08:30)
[2020-10-04] MEDS: ATORVASTATIN 10 MG TAB PO SCH (08:30)
[2020-10-04] MEDS: FAMOTIDINE 20 MG in SYRINGE 3 ML IV SCH (08:30)
[2020-10-04] MEDS: FUROSEMIDE 40 MG in SYRINGE 0 ML IV SCH ×2 (08:30→20:45)
[2020-10-04] MEDS: METOPROLOL SUCC 50MG EXT REL TAB PO SCH ×2 (08:30→20:46)
[2020-10-04] MEDS: APIXABAN 5 MG TABLET PO SCH ×2 (08:30→20:44)
[2020-10-04] MEDS: PANTOprazole 40 MG TAB PO SCH (08:31)
[2020-10-04] MEDS: FLUTICASONE/VILANTEROL 200/25MCG 14 PUFFS/INHALER INH SCH (08:31)
[2020-10-04] MEDS ORDERED: POTASSIUM CHLORIDE CRTAB 20 MEQ TABCR PO STA (11:15)
--- NOTE | 2020-10-04 11:18 | Cardiology Progress Note ---
Date of Service October 04, 2020 Assessment & Plan (1) Acute respiratory failure with hypoxia and hypercarbia: (2) CHF exacerbation: (3) Bacteremia: Plan: Most recent echocardiogram performed October, revealed severe global left ventricular hypokinesis LVEF in the range of 25 to 30%. Supplement potassium, ordered potassium chloride 40 mEq x 1 this morning 10/04/2020. Resume low-dose of spironolactone. Continue furosemide 40 mg IV twice daily. Continue Eliquis given history of PE, and for VTE prophylaxis. Continue metoprolol succinate 100 mg twice daily 1 of 2 blood cultures preliminarily positive for gram-positive cocci in clusters. Question if this is related to cellulitis with noted erythema of the skin on the anterior abdominal wall. Continue empiric antibiotics, repeat cultures without growth thus far. Admission and Anticipated Discharge Date Admission Date: October 02, 2020 Subjective Patient seen in follow-up. He is off of BiPAP this morning. He is back to his baseline mentation. 3 L of urine output noted over the last 24 hours, net -2 L overnight. Blood pressure stable at 140/90, afebrile. Review of Systems Review of Systems: All systems reviewed & are unremarkable except as noted in HPI & below Physical Exam Physical Exam: Temp Pulse Resp BP Pulse Ox 36.8 C 92 H 26 H 139/97 96 10/03/20 04:01 10/03/20 10:02 10/03/20 10:02 10/03/20 10:02 10/03/20 10:02 Constitutional: + morbidly obese Respiratory: Auscultation: + diminished lung sounds (Decreased breath sounds bilaterally at the bases) Cardiovascular: Rate/Rhythm: regular rate and regular rhythm Heart Sounds: no murmur Extremities: no edema Gastrointestinal (Abdomen): normal bowel sounds, soft, nontender, no hepatosplenomegaly Skin: Ongoing areas of erythema on the anterior abdominal wall. Neurologic: PERRL, EOMI, accommodation nl, no face palsy, no dysarthria Results & Data ([facility]) Vital Signs (Past 12 Hours) Vital Signs Temp Pulse Pulse Resp BP BP Pulse Ox 10/04/20 08:00 36.9 C 73 18 140/90 97 10/04/20 05:32 65 22 104/76 94 10/04/20 04:31 73 21 123/71 99 10/04/20 04:22 36.6 C 10/04/20 03:31 71 20 116/87 97 10/04/20 03:17 79 20 97 10/04/20 02:32 70 24 108/83 94 10/04/20 01:31 78 24 113/74 96 10/04/20 01:07 78 22 97 10/04/20 00:31 78 33 H 127/94 96 10/04/20 00:24 37 C 10/03/20 23:31 84 29 H 123/75 93 Laboratory Results Comprehensive Metabolic Panel 10/04/20 Range/Units 05:11 Sodium 136 (136-145) mmol/L Potassium 3.7 (3.5-5.1) mmol/L Chloride 99 (98-107) mmol/L Carbon Dioxide 32 (21-32) mmol/L BUN 16 (7-18) mg/dl Creatinine 1.22 (0.6-1.4) mg/dl Glucose 199 H (70-99) mg/dl Calcium 8.4 L (8.5-10.1) mg/dl Intake and Output 10/03/20 10/04/20 10/04/20 22:59 06:59 14:59 Intake Total 300 / 1240 522 / 522 Output Total 800 / 3000 750 / 3000 800 / 800 Balance -500 / -1760 -750 / -1760 -278 / -278 Intake: IV 300 / 1000 300 / 300 Linezolid 600 mg In 300 ml @ 300 / 600 300 / 300 200 mls/hr IV Q12H [facility] Rx#: [id number] Oral 222 / 222 Output: Urine 800 / 3000 750 / 3000 800 / 800 Other: Weight 158.8 kg Weight Measurement Method Built in [facility] (1) CHF exacerbation Heart failure type: unspecified Qualified Code(s): I50.9 - Heart failure, unspecified
[2020-10-04 11:22] LABS: iSTAT Arterial Blood Gas HCO3 24 meg/L (19-24); iSTAT Arterial Blood Gas pCO2 43 mmHg (35-46); iSTAT Arterial Blood Gas pH 7.35 (7.35-7.45); iSTAT Arterial Blood Gas pO2 61 mmHg (80-95); iSTAT Carbon Dioxide 25 mmol/L (24-31); iSTAT Hematocrit 47 % (42-52); iSTAT Potassium 4.1 mmol/L (3.3-5.0); iSTAT Sodium 138 mmol/L (135-144)
[2020-10-04] MEDS: SPIRONOLACTONE 25 MG TAB PO SCH (11:49)
--- NOTE | 2020-10-04 14:29 | Pharmacy Report ---
Pharmacy Glycemic Short Note 2 - Date of Service October 04, 2020 - Glycemic Short BSG Results (Last 24 hours): 10/03/20 10/03/20 10/04/20 16:33 20:54 05:11 Glucose 199 H POC Glucose 169 H 160 H 10/04/20 10/04/20 07:17 11:10 Glucose POC Glucose 206 H 210 H OUTPATIENT ANTIDIABETIC REGIMEN: * DULAGLUTIDE 1.5 MG sq WEEKLY * HbA1C = 12.5% ASSESSMENT: 10/04: * Patient overall well controlled yesterday ([phone]) once transitioned off of the insulin infusion. Patient received 23 units of lantus and 13 units of novolog. * Fasting BSG trended upward (206 mg/dL), will increase BID lantus scale and monitor * Will slightly tighten novolog scale given elevated lunch BSG 10/03 * Pt meets criteria to transition to transition from IV insulin infusion to SQ basal bolus insulin based on BSGs and insulin drip rate * Pt is well known to pharmacy from previous admissions/glycemic consults. Will use SQ basal bolus insulin regimen similar to previous admissions * Pt is ordered a diet but likely will not eat well since he is unable to come off of bipap- will dose conservatively as if patient were NPO and titrate based on BSG trends. 10/02 * Mr Huff is a 44 y/o M with a PMH of Type 2 DM who presents with acute respiratory failure. * He is currently on BiPAP and NPO. * Currently in hypertensive crisis and fluid overloaded so on nicardipine and furosemide infusions. * Due to NPO status, hyperglycemia, and unstable blood pressure, will start insulin infusion. PLAN FOR INPATIENT GLYCEMIC CONTROL: * Basal insulin * Lantus 8,12, or 15 units BID based on BSG- See MAR for details * Bolus insulin * NovoLog per scale ACHS * Goal range 110-140 mg/dl * CF = 20 mg/dl/unit * CR = 8 PLAN FOR DISCHARGE: * TBD
--- NOTE | 2020-10-04 16:04 | Electrocardiogram Report ---
Test Reason : Blood Pressure : / mmHG Vent. Rate : 134 BPM Atrial Rate : 134 BPM P-R Int : 122 ms QRS Dur : 110 ms QT Int : 306 ms P-R-T Axes : -14 -31 095 degrees QTc Int : 456 ms Poor data quality, interpretation may be adversely affected Sinus tachycardia Left axis deviation T wave abnormality, consider lateral ischemia Abnormal ECG When compared with ECG of 27-SEP-2020 08:47, Incomplete right bundle branch block is no longer Present Criteria for Septal infarct are no longer Present Confirmed by Harry Bush [id number]) on 10/04/2020 4:03:49 PM Referred By: REFERRED SELF Confirmed By:Harry Bush
[2020-10-04] MEDS: SACUBITRIL-VALSARTAN 24-26 MG TAB PO SCH (20:46)
[2020-10-05] MEDS: FUROSEMIDE 40 MG in SYRINGE 0 ML IV SCH (08:29)
[2020-10-05] MEDS: PANTOprazole 40 MG TAB PO SCH (08:29)
[2020-10-05] MEDS: ASPIRIN 81 MG ECTAB PO SCH (08:30)
[2020-10-05] MEDS: ATORVASTATIN 10 MG TAB PO SCH (08:30)
[2020-10-05] MEDS: METOPROLOL SUCC 50MG EXT REL TAB PO SCH (08:30)
[2020-10-05] MEDS: FLUTICASONE/VILANTEROL 200/25MCG 14 PUFFS/INHALER INH SCH (08:30)
[2020-10-05] MEDS: APIXABAN 5 MG TABLET PO SCH (08:30)
[2020-10-05] MEDS: SPIRONOLACTONE 25 MG TAB PO SCH (08:30)
[2020-10-05] MEDS: SACUBITRIL-VALSARTAN 24-26 MG TAB PO SCH (08:30)
[2020-10-05] MEDS: INSULIN GLARGINE SOLOSTAR 100 UNITS/ML 3 ML PEN SC SCH (08:32)
[2020-10-05] MEDS: INSULIN ASPART 100 UNITS/ML 3 ML PEN SC SCH ×2 (08:33→11:49)
[2020-10-05 09:12] LABS: BUN Creatinine Ratio 16.6 (10-20); Calcium 8.7 mg/dl (8.5-10.1); Creatinine Clr Calc Pharmacy 138.1 ml/min; Est GFR (African American) 103.9 ml/min; Est GFR (Non-African American) 89.6 ml/min; Magnesium 2.3 mg/dl (1.8-2.4); Potassium 3.7 mmol/L (3.5-5.1)
[2020-10-05] MEDS ORDERED: levoFLOXacin 750 MG TAB PO SCH (11:00)
[2020-10-05] MEDS ORDERED: POTASSIUM CHLORIDE CRTAB 20 MEQ TABCR PO STA (13:37)
--- NOTE | 2020-10-05 13:39 | Cardiology Progress Note ---
Date of Service October 05, 2020 Assessment & Plan (1) Acute respiratory failure with hypoxia and hypercarbia: (2) CHF exacerbation: (3) Bacteremia: Plan: Most recent echocardiogram performed October, revealed severe global left ventricular hypokinesis LVEF in the range of 25 to 30%. Supplement potassium, ordered potassium chloride 40 mEq x 1 and 20 meQ to start 10/06. Continue low dose spironolactone. Continue furosemide 40 mg IV twice daily. Continue Eliquis given history of PE, and for VTE prophylaxis. Continue metoprolol succinate 100 mg twice daily 1 of 2 blood cultures preliminarily positive for gram-positive cocci in clusters. Question if this is related to cellulitis with noted erythema of the skin on the anterior abdominal wall. Continue empiric antibiotics, repeat cultures without growth thus far. Admission and Anticipated Discharge Date Admission Date: October 02, 2020 Subjective Patient seen in cardiology follow-up. He states that he feels well. His only subjective complaint is that he would like to have his fluid restriction liberalized. He expresses concerns that he and his spouse have been staying in a friend's apartment, and she has been told that she needs to evacuate the premises at 5 PM today. Telemetry reveals sinus rhythm in the 60s, with occasional ventricular pacing. Review of Systems Review of Systems: All systems reviewed & are unremarkable except as noted in HPI & below Physical Exam Physical Exam: Temp Pulse Resp BP Pulse Ox 36.8 C 92 H 26 H 139/97 96 10/03/20 04:01 10/03/20 10:02 10/03/20 10:02 10/03/20 10:02 10/03/20 10:02 Constitutional: + morbidly obese Respiratory: Auscultation: lungs clear to auscultation bilaterally Cardiovascular: Rate/Rhythm: regular rate and regular rhythm Heart Sounds: no murmur Extremities: no edema Gastrointestinal (Abdomen): normal bowel sounds, soft, nontender, no hepatosplenomegaly Neurologic: PERRL, EOMI, accommodation nl, no face palsy, no dysarthria Results & Data ([facility]) Vital Signs (Past 12 Hours) Vital Signs Temp Pulse Pulse Resp BP BP Pulse Ox 10/05/20 11:58 36.6 C 65 22 99/74 L 97 10/05/20 08:06 88 22 94 10/05/20 07:24 36.6 C 56 L 21 125/92 99 10/05/20 03:50 36.5 C 10/05/20 03:43 63 21 103/70 97 10/05/20 03:20 62 21 99 Laboratory Results Comprehensive Metabolic Panel 10/05/20 Range/Units 08:25 Sodium 138 (136-145) mmol/L Potassium 3.7 (3.5-5.1) mmol/L Chloride 102 (98-107) mmol/L Carbon Dioxide 30 (21-32) mmol/L BUN 17 (7-18) mg/dl Creatinine 1.02 (0.6-1.4) mg/dl Glucose 152 H (70-99) mg/dl Calcium 8.7 (8.5-10.1) mg/dl Intake and Output 10/04/20 10/05/20 10/05/20 22:59 06:59 14:59 Intake Total 400 / 1162 Output Total 1000 / 3150 Balance / -1987 -1000 Intake: IV 300 / 600 Linezolid 600 mg In 300 ml @ 300 / 600 200 mls/hr IV Q12H [facility] Rx#: [id number] Oral 100 / 562 Output: Urine 1000 / 3150 Other: Weight 158.7 kg Weight Measurement Method Built in [facility] (1) CHF exacerbation Heart failure type: unspecified Qualified Code(s): I50.9 - Heart failure, unspecified
--- NOTE | 2020-10-05 16:22 | Discharge Summary ---
Date of Service October 05, 2020 Admission HPI Per Admitting Provider Alok Huff is a 44 year old male with non-ischemic cardiomyopathy who presents to the ER with shortness of breath. Unable to get any history from patient as on 70% FiO2 [id number] BiPAP and in respiratory distress. Well known to this service for non-compliance with his medication. In the ER he was given 80mg IV Lasix and started on 0.5 inch nitro paste with improved O2 sats and less respiratory distress. CXR consistent with pulmonary edema but als concerning for pneumonia. WBC elevated although this has also occurred on prior occasions of CHF without pneumonia. Procalcitonin negative. BNP elevated 3405pg/ml. Lactic acid elevated at 4.6. ABG pH 7.16 - respiratory acidosis. Principal Diagnosis acute on chronic systolic heart failure micrococcus blood culture bacteremia treated with levaquin Discharge Exam The patient appeared stable Vital signs as documented. Lungs are clear to auscultation mildly diminished at the bases Cardiac exam, Rhythm is regular.. No murmurs, rubs or gallops. Abdominal exam reveals normal bowel sounds, soft non tender, no masses Still some healing open areas on his pannus did not appear to be with infection at the current time or chronically there leg purpleish skin Extremities are trace to 1+ edematous bilaterally and both pedal pulses are normal. Neurologic exam is alert and oriented, no focal loss of strength or sensation Skin is without bruises or rashes other than his pannus Psychologically is without concerns for anxiety or depression. Discharge Data Allergies Allergy/AdvReac Type Severity Reaction Status Date / Time ceftriaxone Allergy Severe SHORTNESS Verified 10/02/20 08:21 OF BREATH lidocaine Allergy Severe SHORTNESS Verified 10/02/20 08:21 OF BREATH, diaphoretic, hives procaine Allergy Severe SHORTNESS Verified 10/02/20 08:21 OF BREATH, diaphoretic, hives amoxicillin Allergy Intermediate HIVES/FACIAL Verified 10/02/20 08:21 SWELLING clavulanic acid Allergy Intermediate HIVES/FACIAL Verified 10/02/20 08:21 SWELLING lisinopril Allergy Intermediate HIVES Verified 10/02/20 08:21 acetaminophen AdvReac Mild NAUSEA Verified 10/02/20 08:21 albuterol AdvReac Mild proair Verified 10/02/20 08:21 "trouble taking breaths" Fish Containing Products AdvReac Unknown Verified 10/02/20 08:21 Consultations 10/02/20 07:25 ED Decision to Admit Stat 10/02/20 08:06 Consult Cardiology Routine 10/02/20 10:17 Consult Chief Wheelage Clerk Routine Hospital Course (1) Acute respiratory failure with hypoxia and hypercarbia: Patient had respiratory failure secondary to systolic heart failure. It is obvious the patient is not willing to amend his lifestyle diet or medications to help support his cardiac condition. He is on much lower equivalent dosing of his of Lasix than his torsemide and is having good diuresis (2) Acute respiratory acidosis: resolved (3) Acute on chronic congestive heart failure: Patient will resume outpatient furosemide with close follow-up with [facility] cardiology. Continuing on entresto, metoprolol Reducing spironolactone at discharge try to streamline his medication regiment (4) Bacteremia: 02/15 GPC present. Suspect most likely contaminant antibiotics changed to po levofloxacin for an additional 7 day course abdomen was initially described as infected does not appear to be the case (5) Pneumonia: Possible diagnosis. Antibiotics started in ICU. 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 His medication list is NOT what he takes at home and will lead to renal failure and hypotension if those doses are restarted in hospital. Leave the hospital due to being evicted from his low income housing. Patient's social status is in check and he will likely fail and return as he is going to live the [facility] [place] [facility] (7) AICD (automatic cardioverter/defibrillator) present: Noted (8) Hypertensive emergency: Stop nicardipine IV drip. No longer requiring this (9) Obstructive sleep apnea: Requires BiPAP HS chronically. (10) Diabetes mellitus type II, uncontrolled: resume home medications (11) COPD (chronic obstructive pulmonary disease): Continue his usual Symbicort Total Time Total Time Spent Total Time Spent (In Minutes): It required greater than 30 minutes to prepare this patient for discharge Discharge Plan Discharge Items Patient Disposition: Home - Self-Care Reason For Visit: ACUTE ON CHRONIC CHF W REDUCED EJECTION FRACTION Discharge Diagnosis: acute on chronic systolic heart failure Condition on Discharge: Fair Activity: Per Instructions section Activity Comment: slowly increase activity, and elevate legs when resting Non-emergency contact: Primary Care Provider Call non-emergency contact if: your symptoms worsen and you have a fever Follow-up/Referrals: Richa Burr CRNP [Primary Care Provider] - 10/11/20 11:15 am Vick Benoit DO [Senior Integration Developer] - 10/27/20 2:15 pm Diet: Carb Consistent or DM2 and Low Sodium (2gm) Addtl Attending Provider Instructions: please limit salt and water intake elevate legs when resting follow up with your heard doctor next week Call 911 and go to the Emergency Room if: * You have tightness or pain in your chest that does not go away with rest or Nitroglycerin * You are very short of breath even with rest Call your doctor if any of the following symptoms or problems start or get worse: * Shortness of breath or difficulty breathing * Wake up at night short of breath * Chest pain * Cough * Swelling of your hands, fee, or legs * More fatigued or tired with your normal activity * Palpitations - sudden fast heart beats WEIGHT * Weigh yourself every morning after using the bathroom. * Use the same scale. * Wear the same amount of clothing. * Write your weight down on your chart. * Call your doctor if you gain more than 2-3 pounds in 1-2 days. MEDICATIONS * Use this discharge instruction sheet for instructions. * Take your medications at the time your doctor ordered. * Do not skip a dose of your medicines. * If you miss a dose of medicine, take as soon as possible, but DO NOT DOUBLE A DOSE. * Read your medicine information when you get home. * Know all of the side effects of your medicine. * Call your doctor's office if you have any side effects. * Be sure all of your doctors know what medicine and herbs you take (including cold, flu, and herbal medicine). * Pain Medicine: If you do not get relief from your pain, please call your doctor for help. Take the following with you to your follow-up doctor appointments: * Weight Chart * Medication List * List of questions Do not drink excessive alcohol, beer or wine. Pending Studies at Discharge: Yes Studies:: blood culture Stand-Alone Forms: My [employer], Smoking Cessation Medications and DC Order Prescriptions: New levofloxacin 750 mg Tablet 750 mg PO DAILY@1100 Qty: 7 RF: 0 Continued Trulicity 1.5 mg/0.5 mL pen injector 1.5 mg SUBCUT WK Qty: 2 RF: 5 Eliquis 5 mg tablet 5 mg PO BID RF: 0 Entresto 97-103 mg tablet 1 tab PO BID RF: 0 atorvastatin 10 mg tablet 10 mg PO DAILY RF: 0 esomeprazole magnesium [Nexium] 20 mg capsule,delayed release(DR/EC) 20 mg PO DAILY Qty: 30 RF: 2 metoprolol succinate 100 mg tablet extended release 24 hr 100 mg PO BID Qty: 60 RF: 5 aspirin [Aspirin Low Dose] 81 mg tablet,delayed release (DR/EC) 81 mg PO DAILY RF: 0 nitroglycerin [Nitrostat] 0.4 mg tablet, sublingual 0.4 mg sublingual UD PRN (Reason: Chest Pain) RF: 0 cholecalciferol (vitamin D3) [Vitamin D3] 50 mcg (2,000 unit) Tablet 50 mcg PO BID RF: 0 torsemide 20 mg tablet 80 mg PO BID RF: 0 budesonide-formoterol [Symbicort] 160-4.5 mcg/actuation HFA aerosol inhaler 2 inh inhalation BID Qty: 10.2 RF: 0 Changed spironolactone [Aldactone] 25 mg tablet 25 mg PO QAM Qty: 30 RF: 0 Discharge Orders: Discharge Order (Routine); Ordered 10/05/20 Ordered By: Shon Talamantes/Other Patient Handouts: A1C, High Blood Sugar (Hyperglycemia), Hypoglycemia (Low Blood Sugar), Managing Type 2 Diabetes Admission Data Admit Date/Time: 10/02/20 07:25 Attending Provider: Shon Gonzalez Admit Provider: Migue Laguna Primary Care Provider: Richa Burr Other Providers: Migue Laguna ; Vick Benoit ; Prince Hurley Other Interventions: Discharge Summary Assessment (RN) Last Done: 10/05/20 15:32 Coding Level of Care Code D/C DAY MANAGEMENT >30 MINS Diagnoses Acute respiratory failure with hypoxia and hypercarbia J96.01; J96.02 Acute respiratory acidosis E87.2 Acute on chronic congestive heart failure I50.43 Heart failure type: combined systolic and diastolic Bacteremia R78.81 Pneumonia J18.9 Noncompliance Z91.19 AICD (automatic cardioverter/defibrillator) present Z95.810 Hypertensive emergency I16.1 Obstructive sleep apnea G47.33 Diabetes mellitus type II, uncontrolled E11.65 Glycemic state: with hyperglycemia COPD (chronic obstructive pulmonary disease) J44.9 COPD type: unspecified COPD
[2020-10-05] MEDS ORDERED: ETOMIDATE 2 MG/ML 20 ML VIAL IV ONE (16:44)
[2020-10-06] MEDS ORDERED: POTASSIUM CHLORIDE CRTAB 20 MEQ TABCR PO SCH (09:00)
== END 2020-10-05 16:45 | disposition home or self-care (01) | DRG 291 ==
LOC: ED 06:11 → SUATTDRO 07:25 → 1E 07:25

== ENCOUNTER 2021-02-24 02:38 | Observation (INO) ==
[2021-02-24 03:54] LABS: Basophils # (auto) 0.02 K/uL (0-0.2); Basophils % (auto) 0.2 %; Eosinophils # (auto) 0.07 K/uL (0-0.5); Eosinophils % (auto) 0.7 %; Hematocrit (blood only) 43.3 % (42-52); Hemoglobin 14.1 g/dL (14.0-18.0); Immature Granulocytes # (auto) 0.02 K/uL (0.00-0.02); Immature Granulocytes % (auto) 0.2 %; Lymphocytes # (auto) 1.65 K/uL (1.2-3.4); Lymphocytes % (auto) 17.2 %; Mean Corpuscular Hemoglobin 26.8 pg (25-34); Mean Corpuscular Hgb Conc 32.6 g/dL (32-36); Mean Corpuscular Volume 82.3 fL (80-100); Mean Platelet Volume 10.2 fL (7.4-10.4); Monocytes # (auto) 0.72 K/uL (0.11-0.59); Monocytes % (auto) 7.5 %; Neutrophils # (auto) 7.09 K/uL (1.4-6.5); Neutrophils % (auto) 74.2 %; Platelet Count 206 K/uL (130-400); RDW Standard Deviation 47.3 fL (36.4-46.3); Red Blood Count 5.26 M/uL (4.7-6.1); White Blood Count 9.57 K/uL (4.8-10.8)
[2021-02-24 04:17] LABS: Troponin I 0.04 ng/ml (0-0.04)
[2021-02-24 04:27] LABS: Albumin Level 3.7 gm/dl (3.4-5.0); BUN Creatinine Ratio 10.8 (10-20); Bilirubin,Total 0.9 mg/dl (0.2-1.0); Calcium 8.8 mg/dl (8.5-10.1); Creatinine Clr Calc Pharmacy 193.2 ml/min; Est GFR (Non-African American) 112.2 ml/min; Globulin 3.8 gm/dl (2.5-4.0); Potassium 4.1 mmol/L (3.5-5.1); Total Protein 7.5 gm/dl (6.0-8.3)
[2021-02-24] MEDS ORDERED: levoFLOXacin/D5W 750 MG/150 ML BAG IV STA (06:15)
[2021-02-24] MEDS ORDERED: NovoLIN-R INSULIN PER UNIT CHARGE IV STA (06:33)
--- NOTE | 2021-02-24 07:01 | History & Physical Report ---
Date of Service February 24, 2021 Assessment & Plan (1) Hemoptysis: Plan: 45yo male presenting with BRISCOE, cough with hemoptysis. CXR with diffuse bilateral airspace disease. Patient is on anticoagulation with Apixaban as well as ASA Patient contacted his PCP with complaint of hemoptysis on 02/16/21 Ddx to include DAH, patient has been on blood thinner, infection, pulmonary edema -Monitor sputum -Check Procalcitonin and BNP -Levaquin 750mg daily -Consider Pulmonary consultation -Hold Apixaban and ASA for now (2) Recurrent infection of skin: Plan: Ongoing - was discussed with PCP during visit on 01/13/21. He was placed on Doxy -Montior -Warm compresses -Triple antibiotic (3) Diabetes mellitus type II, uncontrolled: Plan: Poorly controlled. Elevated blood sugar presently at 344. BHB is within normal range. -Regular insulin 8u IV now -Lantus 8u BID Continue Trulicity -ISS -Goal blood sugar 100 - 180 -CC diet (4) Hypertension: Plan: Blood pressure elevated at 160/100 -Continue Imdur -Continue Metoprolol -Continue Entresto -Monitor (5) NICM (nonischemic cardiomyopathy): Plan: Chronic. Volume state difficult to evaluate due to body habitus -Continue Imdur -Continue Metoprolol -Continue Entresto -Continue Spironolactone -Continue Torsemide -Monitor UOP, weight and electrolytes (6) Obstructive sleep apnea: Plan: Patient is noncompliant with CPAP -CPAP qHS (7) COPD (chronic obstructive pulmonary disease): Plan: -Hold Symbicort with possible infection History of Present Illness Chief Complaint: hemoptysis Primary Care Provider: CM Hitchcock Alok Huff is a 45yo male with multiple medical comorbidities presenting with cough, SOB and hemoptysis ongoing for 4-5 days. He reports coughing up copious amounts of bloody sputum. He has chest discomfort associated with coughing and deep breathing. He reports worsening shortness of breath and BRISCOE after short distances. Reports worsening LE edema, nausea, vomiting and lightheadedness as well. Patient additionally developed fluid filled lesions on his abdomen and lower extremities appx 5 days ago. He says that they easily open and theres blood and fluid inside. No additional complaints. ER Course: Insulin 8u IV, Levaquin 750mg IV Allergies Allergy/AdvReac Type Severity Reaction Status Date / Time ceftriaxone Allergy Severe SHORTNESS Verified 02/24/21 02:54 OF BREATH lidocaine Allergy Severe SHORTNESS Verified 02/24/21 02:54 OF BREATH, diaphoretic, hives procaine Allergy Severe SHORTNESS Verified 02/24/21 02:54 OF BREATH, diaphoretic, hives amoxicillin Allergy Intermediate HIVES/FACIAL Verified 02/24/21 02:54 SWELLING clavulanic acid Allergy Intermediate HIVES/FACIAL Verified 02/24/21 02:54 SWELLING lisinopril Allergy Intermediate HIVES Verified 02/24/21 02:54 acetaminophen AdvReac Mild NAUSEA Verified 02/24/21 02:54 albuterol AdvReac Mild proair Verified 02/24/21 02:54 "trouble taking breaths" Fish Containing Products AdvReac Unknown Verified 02/24/21 02:54 Home Medications Medication Instructions Recorded Confirmed Type nitroglycerin 0.4 mg sublingual 0.4 mg SUBLINGUAL UD PRN 04/24/19 02/24/21 History tablet (Nitrostat) cholecalciferol (vitamin D3) 50 50 mcg PO BID 10/04/19 02/24/21 History mcg (2,000 unit) tablet (Vitamin D3) apixaban 5 mg tablet (Eliquis) 5 mg PO BID tab 08/10/20 02/24/21 History albuterol sulfate 90 mcg/actuation 1 inh INHALATION QID #8.5 g 12/09/20 02/24/21 Rx aerosol inhaler Symbicort 160 mcg-4.5 2 inh INHALATION BID #10.2 g NS 12/16/20 02/24/21 Rx mcg/actuation HFA aerosol inhaler (budesonide-formoterol) aspirin 81 mg tablet,delayed 81 mg PO DAILY #90 tab 12/16/20 02/24/21 Rx release (Aspirin Low Dose) atorvastatin 10 mg tablet 10 mg PO DAILY #90 tab 12/16/20 02/24/21 Rx albuterol sulfate 2.5 mg INHALATION Q6H #15 ml 02/21/21 02/24/21 Rx diphenhydramine 25 1 tab PO .Q HS PRN #14 tab 02/21/21 02/24/21 Rx mg-acetaminophen 500 mg tablet (Tylenol PM Extra Strength) doxycycline monohydrate 100 mg 100 mg PO BID #14 cap 02/21/21 02/24/21 Rx capsule dulaglutide 1.5 mg/0.5 mL 1.5 mg SUBCUT WK #2 ml 02/21/21 02/24/21 Rx subcutaneous pen injector (Trulicity) esomeprazole magnesium 20 mg 40 mg PO BID #60 cap 02/21/21 02/24/21 Rx capsule,delayed release (Nexium) metoprolol succinate 100 mg 100 mg PO BID #60 tab 02/21/21 02/24/21 Rx tablet,extended release 24 hr sacubitril 97 mg-valsartan 103 mg 1 tab PO BID #60 tab 02/21/21 02/24/21 Rx tablet (Entresto) spironolactone 25 mg tablet 75 mg PO QAM #90 tab 02/21/21 02/24/21 Rx (Aldactone) torsemide 20 mg tablet 20 mg PO BID #60 tab 02/21/21 02/24/21 Rx isosorbide mononitrate 30 mg 60 mg PO QAM 02/24/21 02/24/21 History tablet,extended release 24 hr Past Med/Surg History Medical History Bacteremia Chronic respiratory failure Dilatation of thoracic aorta Fatty liver Hearing loss of both ears Hx of local infection of skin and subcutaneous tissue Iliac aneurysm Lung nodule NICM (nonischemic cardiomyopathy) Pt admitted for elective ICD. Underwent procedure without any complications monitored over night and discharged home. 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 Heart disease Myocardial infarction Mother , age 67 of a ruptured neck vessel Sudden Other Depression Lung disease No pertinent family history Denies family history of Ovarian cancer Prostate cancer Breast cancer Colorectal cancer Social History Smoking Status: Former smoker Tobacco Type: Cigarettes Age Started Using Tobacco: 14; Age Quit Using Tobacco: 18; Cigarettes Per Day: 40-50; Second Hand Exposure: No; Hx Alcohol Use: Yes Alcohol type: other Hx Substance Use: No Preferred Language: Romansh Communication Ability: Effective Visual Impairment: No Limitations Hearing Ability: Normal Drawer Waxer Required: No Beliefs That Will Affect Care: None marital status: Current Living Situation: Spouse current occupational status: unemployed How many Children do You have: 0 Feels Safe at Home: Yes Childhood Exposure to Second-Hand Smoke: Yes Dental Care, Regularly: Yes Physical Activity Frequency: Does not Exercise Assistive Devices: Oxygen - Continuous and Wheelchair (motorized scooter) Review of Systems Review of Systems: All systems reviewed & are unremarkable except as noted in HPI & below Physical Exam Physical Exam: General: morbidly obese male patient resting comfortably, chronically ill in appearance, AA&O x 4 Skin: erythematous lesions present on lower abdomen with scabbing HEENT: NC/AT, PERRL, EOMI, anicteric sclera, conjunctiva without injection, external ear normal to inspection and nontender, nares patent, moist mucus membranes, dentition intact, no oropharyngeal lesions, neck supple, trachea midline, no LAD, no thyromegaly, no JVD Heart: +S1/S2, regular, no m/r/g Lungs: equal air entry bilaterally, fine end-inspiratory crackles in bilateral bases Abd: +BS, soft, NT/ND, no masses/organomegaly/ascites Ext: warm, 2+ pulses in UE/LE bilaterally, no clubbing/cyanosis, +edema 2+ pitting Neuro: nonfocal, patient AA&O x 4, speech intact, no facial droop, moving all extremities on command with equal strength 5/5 Results & Data Results & Data ([facility]) Vital Signs (Past 12 Hours) Vital Signs Temp Pulse Pulse Resp BP BP Pulse Ox 02/24/21 06:00 94 H 18 160/100 H 96 02/24/21 04:39 80 20 154/106 H 95 02/24/21 02:44 110 H 22 96 02/24/21 02:39 36.7 C 110 H 110 H 22 173/133 H 173/133 H 96 Laboratory Results Laboratory Results WBC 9.57 K/uL (4.8-10.8) 02/24/21 03:40 RBC 5.26 M/uL (4.7-6.1) 02/24/21 03:40 Hgb 14.1 g/dL (14.0-18.0) 02/24/21 03:40 Hct 43.3 % (42-52) 02/24/21 03:40 MCV 82.3 fL (80-100) 02/24/21 03:40 MCH 26.8 pg (25-34) 02/24/21 03:40 MCHC 32.6 g/dL (32-36) 02/24/21 03:40 RDW Std Deviation 47.3 fL (36.4-46.3) H 02/24/21 03:40 RDW Coeff of Zoltan 16.0 % (11.5-14.5) H 02/24/21 03:40 Plt Count 206 K/uL (130-400) 02/24/21 03:40 MPV 10.2 fL (7.4-10.4) 02/24/21 03:40 Immature Gran % (Auto) 0.2 % 02/24/21 03:40 Neut % (Auto) 74.2 % 02/24/21 03:40 Lymph % (Auto) 17.2 % 02/24/21 03:40 [place] % (Auto) 7.5 % 02/24/21 03:40 Eos % (Auto) 0.7 % 02/24/21 03:40 Baso % (Auto) 0.2 % 02/24/21 03:40 Neut # (Auto) 7.09 K/uL (1.4-6.5) H 02/24/21 03:40 Lymph # (Auto) 1.65 K/uL (1.2-3.4) 02/24/21 03:40 [place] # (Auto) 0.72 K/uL (0.11-0.59) H 02/24/21 03:40 Eos # (Auto) 0.07 K/uL (0-0.5) 02/24/21 03:40 Baso # (Auto) 0.02 K/uL (0-0.2) 02/24/21 03:40 Immature Gran # (Auto) 0.02 K/uL (0.00-0.02) 02/24/21 03:40 Sodium 135 mmol/L (136-145) L 02/24/21 03:40 Potassium 4.1 mmol/L (3.5-5.1) 02/24/21 03:40 Chloride 102 mmol/L (98-107) 02/24/21 03:40 Carbon Dioxide 24 mmol/L (21-32) 02/24/21 03:40 Anion Gap 9 (3-11) 02/24/21 03:40 BUN 8 mg/dl (6-23) 02/24/21 03:40 Creatinine 0.74 mg/dl (0.6-1.4) 02/24/21 03:40 Est Cr Clr Drug Dosing 193.2 ml/min 02/24/21 03:40 Est GFR ( Amer) 130.0 ml/min 02/24/21 03:40 Est GFR (Non-Af Amer) 112.2 ml/min 02/24/21 03:40 BUN/Creatinine Ratio 10.8 (10-20) 02/24/21 03:40 Glucose 344 mg/dl (70-99) H* 02/24/21 03:40 Calcium 8.8 mg/dl (8.5-10.1) 02/24/21 03:40 Total Bilirubin 0.9 mg/dl (0.2-1.0) 02/24/21 03:40 AST 18 U/L (13-39) 02/24/21 03:40 ALT 22 U/L (7-52) 02/24/21 03:40 Alkaline Phosphatase 99 U/L (34-104) 02/24/21 03:40 Troponin I 0.04 ng/ml (0-0.04) 02/24/21 03:40 Total Protein 7.5 gm/dl (6.0-8.3) 02/24/21 03:40 Albumin 3.7 gm/dl (3.4-5.0) 02/24/21 03:40 Globulin 3.8 gm/dl (2.5-4.0) 02/24/21 03:40 Albumin/Globulin Ratio 1.0 (0.9-2) 02/24/21 03:40 Beta-Hydroxybutyric Acd 1.23 mg/dl (0.2-2.81) 02/24/21 03:40 SARS-CoV-2, RNA, NAAT NEGATIVE (NEGATIVE) 02/24/21 03:35 Diagnostic Findings CXR by my interpretation - bilateral airspace disease mostly in bases R > L Code Status & VTE Plan VTE Prophylaxis Plan VTE Prophylaxis will be ordered: Yes PG Care Time/CCT Total # of Minutes Spent Total Time Spent with Patient: Total time spent is greater than 50% in coordination of care (as documented) at patient's floor/unit and/or counseling patient: Coding Level of Care Code 93897 Initial Inpt Care Lvl 3 Diagnoses Recurrent infection of skin L08.9 Diabetes mellitus type II, uncontrolled E11.65 Glycemic state: with hyperglycemia Hypertension I10 Hypertension type: unspecified NICM (nonischemic cardiomyopathy) I42.8 Obstructive sleep apnea G47.33 COPD (chronic obstructive pulmonary disease) J44.9 COPD type: unspecified COPD Hemoptysis R04.2 (1) Diabetes mellitus type II, uncontrolled Glycemic state: with hyperglycemia Qualified Code(s): E11.65 - Type 2 diabetes mellitus with hyperglycemia (2) Hypertension Hypertension type: unspecified Qualified Code(s): I10 - Essential (primary) hypertension (3) COPD (chronic obstructive pulmonary disease) COPD type: unspecified COPD Qualified Code(s): J44.9 - Chronic obstructive pulmonary disease, unspecified
--- NOTE | 2021-02-24 07:42 | XRay Report ---
XR chest 1V portable CLINICAL HISTORY: Dyspnea. COMPARISON STUDY: 02/16/2021 TECHNIQUE: 1 view of the chest FINDINGS: Single frontal view of the chest demonstrates the heart size to again be enlarged. Compared to previo us examination, there is again evidence for central vascular congestion. No definite confluent alveol ar opacities are seen. There is suspicion of bilateral pleural effusions. Cardiac pacer is again seen . There is no acute osseous pathology. IMPRESSION: Compared to previous examination, there is again evidence for vascular congestion and pro bable bilateral pleural effusions. No definite alveolar opacities are identified. ACT 112: Negative or not required by law. Electronically signed by: Hill Mondragon M.D. 02/24/2021 7:41 AM
[2021-02-24] MEDS ORDERED: NON-FORMULARY MEDICATION (Dulaglutide [Trulicity] 1.5 mg/0.5 mL pen injector) SQ SCH (08:51)
[2021-02-24] MEDS ORDERED: CARBOHYDRATES FOR HYPOGLYCEMIA PO PRN (08:51)
[2021-02-24] MEDS ORDERED: DEXTROSE 50% 50 ML SYRINGE IV PRN (08:51)
[2021-02-24] MEDS ORDERED: GLUCOSE 10 TABS/TUBE PO PRN (08:51)
[2021-02-24] MEDS ORDERED: ONDANSETRON INJ 2 MG/ML 2 ML VIAL IV PRN (08:51)
[2021-02-24] MEDS ORDERED: GLUCAGON FOR INJ 1 MG VIAL SQ PRN (08:51)
[2021-02-24] MEDS ORDERED: GLUCOSE 40% GEL 15 GM TUBE PO PRN (08:51)
[2021-02-24] MEDS: ATORVASTATIN 10 MG TAB PO SCH (10:12)
[2021-02-24] MEDS: TORSEMIDE 20 MG TAB PO SCH ×2 (10:12→17:31)
[2021-02-24] MEDS: SPIRONOLACTONE 25 MG TAB PO SCH ×2 (10:13→17:31)
[2021-02-24] MEDS: PANTOprazole 40 MG TAB PO SCH ×2 (10:13→23:14)
[2021-02-24] MEDS: METOPROLOL SUCC 50MG EXT REL TAB PO SCH ×2 (10:14→23:13)
[2021-02-24] MEDS: VALSARTAN/SACUBITRIL 103/97MG TAB PO SCH ×2 (10:14→23:14)
[2021-02-24] MEDS: ISOSORBIDE MONO EXTENDED REL 60 MG TABCR PO SCH (10:15)
[2021-02-24] MEDS: INSULIN ASPART PER UNIT SC SCH ×4 (10:16→22:33)
[2021-02-24] MEDS: NEOMYCIN/POLYMYX/BACITR OINT 15 GM TUBE EXT SCH ×2 (10:17→23:15)
[2021-02-24] MEDS: INSULIN GLARGINE SOLOSTAR 100 UNITS/ML 3 ML PEN SC SCH ×2 (10:17→22:33)
[2021-02-24 11:29] LABS: Magnesium 1.5 mg/dl (1.7-2.4); Phosphorus 3.5 mg/dl (2.5-4.9)
[2021-02-24] MEDS: ALBUTEROL HFA 8 GM INHALER INH SCH ×3 (13:49→19:49)
--- NOTE | 2021-02-24 16:46 | Emergency Department Note ---
Impression & Plan Cough with hemoptysis, Acute dyspnea, Left-sided chest pain Admit to the [facility] ED Provider Note NAME: HARDIK LOVE AGE: 45 SEX: M ARRIVES VIA: Ambulance INFORMANT: Patient ED PROVIDER(S): Cydney Barton DO CHIEF COMPLAINT: Hemoptysis PLAN: Disposition: Admit to the [facility] Condition: Stable MEDICAL DECISION MAKING: This is a 45-year-old male patient presents to the emergency department with hemoptysis, shortness of breath and chest pain. Patient does take blood thinners. He had a recent chest x-ray which showed interstitial pneumonia and has open sores about his abdomen and lower extremities for which she was to be placed on antibiotics. Patient notes that he is coughing up blood, vomiting up a black substance and having black stools. Patient describes significant exertional shortness of breath. [facility] will [facility] for further management. Triage Nursing notes reviewed and agree with them Vital Signs: reviewed and remarkable for tachycardia and hypertension Differential diagnosis: PE, pneumonia, COVID-19, CHF ER treatment provided: IV Levaquin Diagnostics interpreted by me: ECG: Sinus tachycardia at 108 with nonspecific T wave changes in the lateral leads but no ST segment elevation or signs of ischemia. There is no ectopy. Cardiac Monitoring: Sinus tachycardia at 110 Laboratory studies: See below Imaging studies: As per my interpretation Portable chest x-ray: Moderate pulmonary vascular congestion with bilateral pleural effusions and questionable right lower lobe pneumonia HPI: 45/M arrives for evaluation of this of breath and chest pain. Patient describes worsening shortness of breath and chest pain over the past 2-3 days. He also describes hemoptysis, hematemesis and hematochezia. The patient does take thinners. The patient does wear 5 L of oxygen at home for shortness of breath. He had been seen by his PCP in the past couple days and diagnosed with a pneumonia and also was noted to have some open sores about of the abdomen the lower extremities. He was waiting to be prescribed an antibiotic for these. ROS: See above HPI for pertinent positives & negatives. A total of 10 systems reviewed and were otherwise negative. PAST MEDICAL HISTORY:See Below PAST SURGICAL HISTORY:See Below FAMILY HISTORY:See Below SOCIAL HISTORY:See Below HOME MEDICATIONS:See list ALLERGIES:See list VITALS:See Below PHYSICAL EXAMINATION: HEENT: Head - normocephalic and atraumatic. Pupils are equal, round, and reactive to light. Extraocular eye muscles are intact, and sclera are anicteric. Nose - moist nasal mucosa without discharge. Mouth - moist buccal mucosa. Oropharynx is nonerythematous and there is no tonsillar exudate or edema noted. Neck: Supple; no JVD or nuchal rigidity Heart: Regular rate and rhythm. There is a normal S1 and S2 with no murmurs, clicks, or gallops appreciated. Lungs: Rhonchorous breath sounds in all lung obrien Abdomen: Soft, completely nontender, nondistended, with good bowel sounds. There are no palpable pulsatile masses or hepatosplenomegaly. There is no guarding, rigidity, or rebound noted. Extremities: No evidence of cyanosis, clubbing, or edema. There are easily palpable peripheral pulses. Skin: Multiple areas of open wounds about his abdomen and lower extremities ED COURSE: Times/Reassessments: The patient was evaluated in room A 2. A complete history and physical was performed. A twelve-lead EKG was obtained. An IV lock was initiated and labs were drawn as above. An order was placed for continuous cardiac monitoring. The patient was in a sinus tachycardia at 110. Portable chest x-ray was concerning for a questionable right lower lobe pneumonia. Patient was started on IV Levaquin. Patient explained to me that he is unable to ambulate for more than just a couple of steps without becoming significantly short of breath and having excessive hemoptysis. She did not feel that he could be discharged to home. I discussed the case with [facility] Hospitalist and they will evaluate for further management. Cydney Barton DO Past Med/Surg History Medical History Bacteremia Chronic respiratory failure Dilatation of thoracic aorta Fatty liver Hearing loss of both ears Hx of local infection of skin and subcutaneous tissue Iliac aneurysm Lung nodule NICM (nonischemic cardiomyopathy) Pt admitted for elective ICD. Underwent procedure without any complications monitored over night and discharged home. 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 Heart disease Myocardial infarction Mother , age 67 of a ruptured neck vessel Sudden Other Depression Lung disease No pertinent family history Denies family history of Ovarian cancer Prostate cancer Breast cancer Colorectal cancer Social History Smoking Status: Former smoker Tobacco Type: Cigarettes Age Started Using Tobacco: 14; Age Quit Using Tobacco: 18; Cigarettes Per Day: 40-50; Second Hand Exposure: No; Hx Alcohol Use: No Hx Substance Use: No Preferred Language: Urdu Communication Ability: Effective Visual Impairment: No Limitations Hearing Ability: Normal Machine Rigger Required: No Beliefs That Will Affect Care: None marital status: Current Living Situation: Spouse current occupational status: unemployed How many Children do You have: 0 Feels Safe at Home: Yes Childhood Exposure to Second-Hand Smoke: Yes Dental Care, Regularly: Yes Physical Activity Frequency: Does not Exercise Assistive Devices: CPAP and Oxygen - Continuous Allergies Allergies Allergy/AdvReac Type Severity Reaction Status Date / Time ceftriaxone Allergy Severe SHORTNESS Verified 02/24/21 02:54 OF BREATH lidocaine Allergy Severe SHORTNESS Verified 02/24/21 02:54 OF BREATH, diaphoretic, hives procaine Allergy Severe SHORTNESS Verified 02/24/21 02:54 OF BREATH, diaphoretic, hives amoxicillin Allergy Intermediate HIVES/FACIAL Verified 02/24/21 02:54 SWELLING clavulanic acid Allergy Intermediate HIVES/FACIAL Verified 02/24/21 02:54 SWELLING lisinopril Allergy Intermediate HIVES Verified 02/24/21 02:54 acetaminophen AdvReac Mild NAUSEA Verified 02/24/21 02:54 albuterol AdvReac Mild proair Verified 02/24/21 02:54 "trouble taking breaths" Fish Containing Products AdvReac Unknown Verified 02/24/21 02:54 Home Meds Home Medications Medication Instructions Recorded Confirmed nitroglycerin 0.4 mg sublingual 0.4 mg SUBLINGUAL UD PRN 04/24/19 02/24/21 tablet (Nitrostat) cholecalciferol (vitamin D3) 50 50 mcg PO BID 10/04/19 02/24/21 mcg (2,000 unit) tablet (Vitamin D3) apixaban 5 mg tablet (Eliquis) 5 mg PO BID tab 08/10/20 02/24/21 isosorbide mononitrate 30 mg 60 mg PO QAM 02/24/21 02/24/21 tablet,extended release 24 hr Previous Rx's Medication Instructions Recorded albuterol sulfate 90 mcg/actuation 1 inh INHALATION QID #8.5 g 12/09/20 aerosol inhaler Symbicort 160 mcg-4.5 2 inh INHALATION BID #10.2 g NS 12/16/20 mcg/actuation HFA aerosol inhaler (budesonide-formoterol) aspirin 81 mg tablet,delayed 81 mg PO DAILY #90 tab 12/16/20 release (Aspirin Low Dose) atorvastatin 10 mg tablet 10 mg PO DAILY #90 tab 12/16/20 albuterol sulfate 2.5 mg INHALATION Q6H #15 ml 02/21/21 diphenhydramine 25 1 tab PO .Q HS PRN #14 tab 02/21/21 mg-acetaminophen 500 mg tablet (Tylenol PM Extra Strength) doxycycline monohydrate 100 mg 100 mg PO BID #14 cap 02/21/21 capsule dulaglutide 1.5 mg/0.5 mL 1.5 mg SUBCUT WK #2 ml 02/21/21 subcutaneous pen injector (Trulicity) esomeprazole magnesium 20 mg 40 mg PO BID #60 cap 02/21/21 capsule,delayed release (Nexium) metoprolol succinate 100 mg 100 mg PO BID #60 tab 02/21/21 tablet,extended release 24 hr sacubitril 97 mg-valsartan 103 mg 1 tab PO BID #60 tab 02/21/21 tablet (Entresto) spironolactone 25 mg tablet 75 mg PO QAM #90 tab 02/21/21 (Aldactone) torsemide 20 mg tablet 20 mg PO BID #60 tab 02/21/21 Results & Data (ED) Vital Signs Vital Signs - 24 hr 02/24/21 02:39 02/24/21 02:44 02/24/21 04:39 Temperature 36.7 C Temperature Source Oral Pulse Rate 110 H 110 H Pulse Rate [Apical] 110 H 80 Pulse Rhythm Regular Regular Pulse Rhythm [Apical] Regular Irregular Pulse Strength Normal Pulse Strength [Apical] Normal Normal Respiratory Rate 22 22 20 Respiratory Effort / Characteristics Labored SOB on Exertion Respiratory Depth Normal Normal Respiratory Pattern Regular Blood Pressure 173/133 H Blood Pressure [Right Arm] 173/133 H 154/106 H Blood Pressure Mean 146 Blood Pressure Mean [Right Arm] 146 122 Blood Pressure Position Semi-fowlers Blood Pressure Position [Right Arm] Semi-fowlers Semi-fowlers Pulse Oximetry 96 96 95 Oxygen Delivery Method Nasal Cannula Nasal Cannula Nasal Cannula Oxygen Flow Rate 5 5 5 Sepsis Recent Fever Within 48 Hours No Sepsis New/Unexplained Change in Mental Status No Sepsis Action Taken by Nursing No Action Required 02/24/21 06:00 Temperature Temperature Source Pulse Rate Pulse Rate [Apical] 94 H Pulse Rhythm Pulse Rhythm [Apical] Regular Pulse Strength Pulse Strength [Apical] Normal Respiratory Rate 18 Respiratory Effort / Characteristics Respiratory Depth Normal Respiratory Pattern Blood Pressure Blood Pressure [Right Arm] 160/100 H Blood Pressure Mean Blood Pressure Mean [Right Arm] 120 Blood Pressure Position Blood Pressure Position [Right Arm] Semi-fowlers Pulse Oximetry 96 Oxygen Delivery Method Nasal Cannula Oxygen Flow Rate 5 Sepsis Recent Fever Within 48 Hours Sepsis New/Unexplained Change in Mental Status Sepsis Action Taken by Nursing Laboratory Data Result diagrams: 02/25/21 06:35 02/24/21 19:43 Lab Results 02/24/21 02/24/21 02/24/21 Range/Units 03:35 03:40 03:40 WBC 9.57 (4.8-10.8) K/uL RBC 5.26 (4.7-6.1) M/uL Hgb 14.1 (14.0-18.0) g/dL Hct 43.3 (42-52) % MCV 82.3 (80-100) fL MCH 26.8 (25-34) pg MCHC 32.6 (32-36) g/dL RDW Std Deviation 47.3 H (36.4-46.3) fL RDW Coeff of Zoltan 16.0 H (11.5-14.5) % Plt Count 206 (130-400) K/uL MPV 10.2 (7.4-10.4) fL Immature Gran % (Auto) 0.2 % Neut % (Auto) 74.2 % Lymph % (Auto) 17.2 % Foster % (Auto) 7.5 % Eos % (Auto) 0.7 % Baso % (Auto) 0.2 % Neut # (Auto) 7.09 H (1.4-6.5) K/uL Lymph # (Auto) 1.65 (1.2-3.4) K/uL Foster # (Auto) 0.72 H (0.11-0.59) K/uL Eos # (Auto) 0.07 (0-0.5) K/uL Baso # (Auto) 0.02 (0-0.2) K/uL Immature Gran # (Auto) 0.02 (0.00-0.02) K/uL Sodium 135 L (136-145) mmol/L Potassium 4.1 (3.5-5.1) mmol/L Chloride 102 (98-107) mmol/L Carbon Dioxide 24 (21-32) mmol/L Anion Gap 9 (3-11) BUN 8 (6-23) mg/dl Creatinine 0.74 (0.6-1.4) mg/dl Est Cr Clr Drug Dosing 193.2 ml/min Est GFR ( Amer) 130.0 ml/min Est GFR (Non-Af Amer) 112.2 ml/min BUN/Creatinine Ratio 10.8 (10-20) Glucose 344 H* (70-99) mg/dl Calcium 8.8 (8.5-10.1) mg/dl Total Bilirubin 0.9 (0.2-1.0) mg/dl AST 18 (13-39) U/L ALT 22 (7-52) U/L Alkaline Phosphatase 99 (34-104) U/L Troponin I 0.04 (0-0.04) ng/ml Total Protein 7.5 (6.0-8.3) gm/dl Albumin 3.7 (3.4-5.0) gm/dl Globulin 3.8 (2.5-4.0) gm/dl Albumin/Globulin Ratio 1.0 (0.9-2) Beta-Hydroxybutyric Acd (0.2-2.81) mg/dl SARS-CoV-2, RNA, NAAT NEGATIVE (NEGATIVE) 02/24/21 Range/Units 03:40 WBC (4.8-10.8) K/uL RBC (4.7-6.1) M/uL Hgb (14.0-18.0) g/dL Hct (42-52) % MCV (80-100) fL MCH (25-34) pg MCHC (32-36) g/dL RDW Std Deviation (36.4-46.3) fL RDW Coeff of Zoltan (11.5-14.5) % Plt Count (130-400) K/uL MPV (7.4-10.4) fL Immature Gran % (Auto) % Neut % (Auto) % Lymph % (Auto) % Foster % (Auto) % Eos % (Auto) % Baso % (Auto) % Neut # (Auto) (1.4-6.5) K/uL Lymph # (Auto) (1.2-3.4) K/uL Foster # (Auto) (0.11-0.59) K/uL Eos # (Auto) (0-0.5) K/uL Baso # (Auto) (0-0.2) K/uL Immature Gran # (Auto) (0.00-0.02) K/uL Sodium (136-145) mmol/L Potassium (3.5-5.1) mmol/L Chloride (98-107) mmol/L Carbon Dioxide (21-32) mmol/L Anion Gap (3-11) BUN (6-23) mg/dl Creatinine (0.6-1.4) mg/dl Est Cr Clr Drug Dosing ml/min Est GFR ( Amer) ml/min Est GFR (Non-Af Amer) ml/min BUN/Creatinine Ratio (10-20) Glucose (70-99) mg/dl Calcium (8.5-10.1) mg/dl Total Bilirubin (0.2-1.0) mg/dl AST (13-39) U/L ALT (7-52) U/L Alkaline Phosphatase (34-104) U/L Troponin I (0-0.04) ng/ml Total Protein (6.0-8.3) gm/dl Albumin (3.4-5.0) gm/dl Globulin (2.5-4.0) gm/dl Albumin/Globulin Ratio (0.9-2) Beta-Hydroxybutyric Acd 1.23 (0.2-2.81) mg/dl SARS-CoV-2, RNA, NAAT (NEGATIVE) Administered Medications Acetaminophen (Acetaminophen 325 Mg Tab) 650 mg PO Q4H PRN PRN Reason: pain/fever Stop: 03/26/21 08:50 Last Admin: 02/25/21 00:55 Dose: 650 mg Documented by: [id number] Admin: 02/24/21 17:34 Dose: 650 mg Documented by: [id number] Albuterol (Albuterol Hfa 8 Gm Inhaler) 1 puffs INH QIDR [facility] Stop: 03/26/21 10:59 Last Admin: 02/25/21 07:37 Dose: 1 puffs Documented by: [id number] Admin: 02/24/21 19:49 Dose: 1 puffs Documented by: [id number] Admin: 02/24/21 14:26 Dose: 1 puffs Documented by: [id number] Admin: 02/24/21 13:49 Dose: Not Given Documented by: [id number] Atorvastatin Calcium (Atorvastatin 10 Mg Tab) 10 mg PO DAILY [facility] Stop: 03/26/21 08:59 Last Admin: 02/24/21 10:12 Dose: 10 mg Documented by: [id number] Linezolid (Zyvox) 600 mg in 300 mls @ 200 mls/hr IV Q12H [facility]; Protocol Stop: 03/03/21 20:14 Last Infusion: 02/24/21 23:13 Dose: 0 mls/hr Documented by: [id number] Admin: 02/24/21 21:22 Dose: 200 mls/hr Documented by: [id number] Insulin Aspart (Insulin Aspart Per Unit) 0 units SC ACHS [facility] Stop: 03/26/21 08:59 Last Admin: 02/24/21 22:33 Dose: 6 units Documented by: [id number] Cosigned by: [id number] Admin: 02/24/21 20:04 Dose: 9 units Documented by: [id number] Cosigned by: [id number] Admin: 02/24/21 13:53 Dose: 7 units Documented by: [id number] Cosigned by: [id number] Admin: 02/24/21 10:16 Dose: 6 units Documented by: [id number] Cosigned by: [id number] Insulin Glargine (Insulin Glargine Solostar 100 Units/Ml 3 Ml Pen) 8 units SC BID [facility] Stop: 03/26/21 08:59 Last Admin: 02/24/21 22:33 Dose: 8 units Documented by: [id number] Cosigned by: [id number] Admin: 02/24/21 10:17 Dose: 8 units Documented by: [id number] Cosigned by: [id number] Isosorbide Mononitrate (Isosorbide Foster Extended Rel 60 Mg Tabcr) 60 mg PO QAM [facility] Stop: 03/26/21 08:59 Last Admin: 02/24/21 10:15 Dose: 60 mg Documented by: [id number] Metoprolol Succinate (Metoprolol Succ 50mg Ext Rel Tab) 100 mg PO BID [facility] Stop: 03/26/21 08:59 Last Admin: 02/24/21 23:13 Dose: 100 mg Documented by: [id number] Admin: 02/24/21 10:14 Dose: 100 mg Documented by: [id number] Neomycin/Polymyxin/Bacitracin (Neomycin/Polymyx/Bacitr Oint 15 Gm Tube) 1 appln EXT BID [facility] Stop: 03/26/21 08:59 Last Admin: 02/24/21 23:15 Dose: 1 appln Documented by: [id number] Admin: 02/24/21 10:17 Dose: 1 appln Documented by: [id number] Pantoprazole Sodium (Pantoprazole 40 Mg Tab) 40 mg PO BID [facility]; Protocol Stop: 03/26/21 09:14 Last Admin: 02/24/21 23:14 Dose: 40 mg Documented by: [id number] Admin: 02/24/21 10:13 Dose: 40 mg Documented by: [id number] Sacubitril/Valsartan (Valsartan/Sacubitril 103/97mg Tab) 1 tab PO BID [facility] Stop: 03/26/21 08:59 Last Admin: 02/24/21 23:14 Dose: 1 tab Documented by: [id number] Admin: 02/24/21 10:14 Dose: 1 tab Documented by: [id number] Spironolactone (Spironolactone 25 Mg Tab) 50 mg PO QAM [facility] Stop: 03/26/21 08:59 Last Admin: 02/24/21 10:13 Dose: 50 mg Documented by: [id number] Spironolactone (Spironolactone 25 Mg Tab) 25 mg PO DAILY@1700 [facility] Stop: 03/26/21 16:59 Last Admin: 02/24/21 17:31 Dose: 25 mg Documented by: [id number] Discontinued Medications Magnesium Sulfate/Dextrose (Magnesium Sulfate / D5w) 1 gm in 100 mls @ 50 mls/hr IV Q2H [facility] Stop: 02/24/21 22:42 Last Infusion: 02/24/21 22:15 Dose: 0 mls/hr Documented by: [id number] Admin: 02/24/21 21:21 Dose: 50 mls/hr Documented by: [id number] Infusion: 02/24/21 21:21 Dose: 50 mls/hr Documented by: [id number] Admin: 02/24/21 20:07 Dose: 50 mls/hr Documented by: [id number] Insulin Human Regular (Novolin-R Insulin Per Unit Charge) 8 units IV NOW STA Stop: 02/24/21 06:34 Last Admin: 02/24/21 06:49 Dose: 8 units Documented by: [id number] Cosigned by: [id number] Naproxen (Naproxen 250 Mg Tab) 250 mg PO NOW STA Stop: 02/25/21 02:30 Last Admin: 02/25/21 05:02 Dose: Not Given Documented by: [id number] Torsemide (Torsemide 20 Mg Tab) 20 mg PO [id number] [facility] Stop: 03/26/21 08:59 Last Admin: 02/24/21 17:31 Dose: 20 mg Documented by: [id number] Admin: 02/24/21 10:12 Dose: 20 mg Documented by: [id number] Torsemide (Torsemide 10 Mg Tab) 20 mg PO ONE ONE Stop: 02/24/21 19:16 Last Admin: 02/24/21 20:07 Dose: 20 mg Documented by: [id number] Imaging Data Radiologist's Impression: Chest X-Ray 02/24/21 02:44 XR chest 1V portable CLINICAL HISTORY: Dyspnea. COMPARISON STUDY: 02/16/2021 TECHNIQUE: 1 view of the chest FINDINGS: Single frontal view of the chest demonstrates the heart size to again be enlarged. Compared to previous examination, there is again evidence for central vascular congestion. No definite confluent alveolar opacities are seen. There is suspicion of bilateral pleural effusions. Cardiac pacer is again seen. There is no acute osseous pathology. IMPRESSION: Compared to previous examination, there is again evidence for vascular congestion and probable bilateral pleural effusions. No definite alveolar opacities are identified. ACT 112: Negative or not required by law. Electronically signed by: Hill Mondragon M.D. 02/24/2021 7:41 AM Discharge Plan Visit Data Chief Complaint: Shortness of Breath/Dyspnea Stated Complaint: SOB ED Provider: Cydney Barton Discharge Problem: Cough with hemoptysis, Acute dyspnea, Left-sided chest pain Patient Disposition: Admitted As Inpatient Discharge Instructions Interventions: ED Discharge Assessment Last Done: 02/25/21 02:59
[2021-02-24] MEDS: ACETAMINOPHEN 325 MG TAB PO PRN (17:34)
--- NOTE | 2021-02-24 18:23 | Electrocardiogram Report ---
Test Reason : Blood Pressure : / mmHG Vent. Rate : 108 BPM Atrial Rate : 108 BPM P-R Int : 158 ms QRS Dur : 114 ms QT Int : 362 ms P-R-T Axes : 036 -29 102 degrees QTc Int : 485 ms Sinus tachycardia Left atrial enlargement Minor Non-specific intra-ventricular conduction delay Nonspecific T wave abnormality Lateral leads Abnormal ECG When compared with ECG of 02-OCT-2020 06:36, No significant change was found Confirmed by Martell Flores ([id number]) on 02/24/2021 6:22:29 PM Referred By: REFERRED SELF Confirmed By:Martell Flores
[2021-02-24] MEDS ORDERED: TORSEMIDE 10 MG TAB PO ONE (19:15)
[2021-02-24] MEDS ORDERED: VANCOMYCIN CONSULT ACTIVE PRN (19:17)
--- NOTE | 2021-02-24 19:24 | History & Physical Bridge Note ---
Date of Service February 24, 2021 History & Physical Bridge Note I have examined the patient, reviewed the History & Physical and in the interval since the performance of the History & Physical I have noted the following changes of clinical significance: Patient reports ongoing cough with small amounts of hemoptysis mixed with clear saliva which I saw in his emesis basin in the room. He is wanting an extra tray for dinner. Also asks if he needs a heart transplant. Also is concerned that he heard his defibrillator has been recalled. I told him I would consult his corporate travel coordinator for further recommendations on that. Has pain with coughing in his anterior chest wall. Is in no distress. Is on 5 L oxygen which is not typical for him. He reports dyspnea with minimal exertion which has been developing over a few weeks. Vitals reviewed Gen: AAOx3, NAD, morbidly obese HEENT: Anicteric sclerae, EOMI CV: RRR no mgr nl S1S2 Pulm: [Crackles at the bases, otherwise clear Abd: +BS soft NT ND no masses or hernias Ext: 1+ pitting edema lower extremities Skin: Entire abdomen with diffuse erythema and multiple small open 1 cm circular wounds Neuro: Full strength throughout Labs and rads reviewed, ECG reviewed 45-year-old male here with hemoptysis which is recurrent for him No fevers or chills, no leukocytosis Scant hemoptysis, hemoglobin stable Continue Levaquin empirically for pneumonia -Ordered sputum culture -Add on vancomycin for coverage for pneumonia but also for cellulitis of the abdomen -Follow blood cultures Given worsening dyspnea, weight gain, and recent decrease in torsemide dosing down to 20 mg twice daily-will increase torsemide to 40 mg twice daily Consult cardiology -Add fluid restriction of 1500 mL, add low-sodium diet
[2021-02-24] MEDS ORDERED: VANCOMYCIN HCL 1,000 MG in SODIUM CHLORIDE 0.9% 250 ML IV SCH (19:30)
[2021-02-24] MEDS: MAGNESIUM SULFATE / D5W 1 GM/100 ML BAG IV SCH ×2 (20:07→21:21)
[2021-02-24 20:17] LABS: Creatinine Clr Calc Pharmacy 147.4 ml/min; Est GFR (African American) 109.6 ml/min; Est GFR (Non-African American) 94.6 ml/min
[2021-02-24] MEDS: LINEZOLID 600 MG/300 ML BAG IV SCH (21:22)
[2021-02-25] MEDS: ACETAMINOPHEN 325 MG TAB PO PRN (00:55)
[2021-02-25] MEDS ORDERED: NAPROXEN 250 MG TAB PO STA (02:29)
[2021-02-25 07:18] LABS: Basophils # (auto) 0.01 K/uL (0-0.2); Basophils % (auto) 0.1 %; Eosinophils # (auto) 0.16 K/uL (0-0.5); Eosinophils % (auto) 1.9 %; Hematocrit (blood only) 43.4 % (42-52); Hemoglobin 14.1 g/dL (14.0-18.0); Immature Granulocytes # (auto) 0.03 K/uL (0.00-0.02); Immature Granulocytes % (auto) 0.4 %; Lymphocytes # (auto) 2.28 K/uL (1.2-3.4); Mean Corpuscular Hemoglobin 26.9 pg (25-34); Mean Corpuscular Hgb Conc 32.5 g/dL (32-36); Mean Corpuscular Volume 82.8 fL (80-100); Mean Platelet Volume 10.6 fL (7.4-10.4); Monocytes # (auto) 0.43 K/uL (0.11-0.59); Monocytes % (auto) 5.1 %; Neutrophils # (auto) 5.54 K/uL (1.4-6.5); Neutrophils % (auto) 65.5 %; Platelet Count 215 K/uL (130-400); RDW Standard Deviation 48.4 fL (36.4-46.3); Red Blood Count 5.24 M/uL (4.7-6.1); White Blood Count 8.45 K/uL (4.8-10.8)
[2021-02-25] MEDS: ALBUTEROL HFA 8 GM INHALER INH SCH ×4 (07:37→19:44)
[2021-02-25] MEDS: ATORVASTATIN 10 MG TAB PO SCH (08:07)
[2021-02-25 08:08] LABS: Albumin Level 3.3 gm/dl (3.4-5.0); Bilirubin Direct 0.2 mg/dl (0-0.2); Bilirubin,Total 0.7 mg/dl (0.2-1.0); Calcium 7.9 mg/dl (8.5-10.1); Creatinine Clr Calc Pharmacy 130.5 ml/min; Est GFR (African American) 96.2 ml/min; Magnesium 1.6 mg/dl (1.7-2.4); Potassium 3.7 mmol/L (3.5-5.1); Total Protein 6.7 gm/dl (6.0-8.3)
[2021-02-25] MEDS: TORSEMIDE 20 MG TAB PO SCH ×2 (08:08→16:55)
[2021-02-25] MEDS: SPIRONOLACTONE 25 MG TAB PO SCH ×3 (08:08→16:57)
[2021-02-25] MEDS: ISOSORBIDE MONO EXTENDED REL 60 MG TABCR PO SCH (08:08)
[2021-02-25] MEDS: PANTOprazole 40 MG TAB PO SCH ×2 (08:09→20:41)
[2021-02-25] MEDS: METOPROLOL SUCC 50MG EXT REL TAB PO SCH ×2 (08:09→20:43)
[2021-02-25] MEDS: VALSARTAN/SACUBITRIL 103/97MG TAB PO SCH ×2 (08:09→20:43)
[2021-02-25] MEDS: NEOMYCIN/POLYMYX/BACITR OINT 15 GM TUBE EXT SCH ×2 (08:10→20:42)
[2021-02-25] MEDS: LINEZOLID 600 MG/300 ML BAG IV SCH ×2 (08:10→20:34)
[2021-02-25] MEDS ORDERED: POTASSIUM CHLORIDE CRTAB 20 MEQ TABCR PO STA (08:30)
[2021-02-25] MEDS: INSULIN ASPART PER UNIT SC SCH ×4 (08:32→20:49)
[2021-02-25] MEDS: INSULIN GLARGINE SOLOSTAR 100 UNITS/ML 3 ML PEN SC SCH ×2 (08:33→20:39)
[2021-02-25] MEDS: MAGNESIUM SULFATE / D5W 1 GM/100 ML BAG IV SCH ×2 (09:31→11:29)
--- NOTE | 2021-02-25 09:52 | Cardiology Consultation ---
Date of Consultation February 25, 2021 Assessment & Plan (1) Acute on chronic heart failure with reduced ejection fraction and diastolic dysfunction: (2) NICM (nonischemic cardiomyopathy): (3) Hemoptysis: (4) Pulmonary nodule: 45-year-old patient admitted with acute on chronic respiratory failure secondary to systolic heart failure and possible underlying pneumonia. Continue torsemide 40 mg twice daily. Maintain negative fluid balance. Follow daily weight, GFR, and electrolytes. If urine output decreases, transition to oral furosemide 40 mg twice daily. Discussed importance of compliance with clinical follow-up and cardiovascular medical therapies. I also discussed indications for cardiac transplant. He is not a candidate for cardiac transplant at this time. Patient voiced understanding. Continue evidence-based heart failure therapies including Toprol-XL, Entresto, and spironolactone. Most recent ICD interrogation reviewed. Routine interrogations as scheduled via the [facility] heart rhythm device clinic. Treatment of underlying infectious process/pneumonia as per internal medicine. Blood cultures negative x24 hours. Sputum culture pending. Patient noncompliant with CPAP in the outpatient setting as a likely contributor to his overall clinical decline. Consult case management for assistance. Patient noting intermittent hemoptysis on chronic anticoagulation with Eliquis plus aspirin. Review of records demonstrates history of pulmonary nodules per CT's dating back to 2019. Consider pulmonary consultation for further evaluation. History of Present Illness Reason for Consultation: CHF Requesting Physician: Dr. Cadet Attending Physician: Tonja Cadet MD History of Present Illness 45-year-old female presented to the emergency department with shortness of breath, orthopnea, PND for the past 7 days. Chest x-ray revealing pulmonary edema possible infiltrate. Anticoagulation antiplatelet therapy placed on hold. Oral torsemide increased to 40 mg twice daily with 2.7 L diuresis. Orthopnea mildly improved. Admits to noncompliance with CPAP since October due to a recall on his device. Longstanding history of noncompliance with cardiology follow-up and medical therapies, however, patient reports compliance with diuretic therapy recently. Lost to cardiology follow-up since June 2020. Oral anticoagulation initiated 2020 [facility] 07/04/2020 ([facility]) without evidence of pulmonary embolus. Bilateral pulmonary nodules reported on CAT scans dating back to 2019. Long-term anticoagulation continued due to patient's risk of recurrent DVT/PE and chronic immobility. Dose of torsemide listed as 80 mg twice daily Per review of the [employer] record dating back to June 2020, however, per review of [employer], dose reduced to 20 mg twice daily in October. Management of diuretics has been challenging in the past due to frequent noncompliance. Most recent ICD interrogation performed 02/25/2021 demonstrating normal device function with adequate battery life. No sustained dysrhythmia or therapies delivered. Has questions today regarding cardiac transplant. Clinically improved overnight. Reports cough with blood streaked sputum this AM. No significant edema. Notes poor appetite. Allergies Allergy/AdvReac Type Severity Reaction Status Date / Time ceftriaxone Allergy Severe SHORTNESS Verified 02/24/21 02:54 OF BREATH lidocaine Allergy Severe SHORTNESS Verified 02/24/21 02:54 OF BREATH, diaphoretic, hives procaine Allergy Severe SHORTNESS Verified 02/24/21 02:54 OF BREATH, diaphoretic, hives amoxicillin Allergy Intermediate HIVES/FACIAL Verified 02/24/21 02:54 SWELLING clavulanic acid Allergy Intermediate HIVES/FACIAL Verified 02/24/21 02:54 SWELLING lisinopril Allergy Intermediate HIVES Verified 02/24/21 02:54 acetaminophen AdvReac Mild NAUSEA Verified 02/24/21 02:54 albuterol AdvReac Mild proair Verified 02/24/21 02:54 "trouble taking breaths" Fish Containing Products AdvReac Unknown Verified 02/24/21 02:54 Home Medications Medication Instructions Recorded Confirmed Type nitroglycerin 0.4 mg sublingual 0.4 mg SUBLINGUAL UD PRN 04/24/19 02/24/21 History tablet (Nitrostat) cholecalciferol (vitamin D3) 50 50 mcg PO BID 10/04/19 02/24/21 History mcg (2,000 unit) tablet (Vitamin D3) apixaban 5 mg tablet (Eliquis) 5 mg PO BID tab 08/10/20 02/24/21 History albuterol sulfate 90 mcg/actuation 1 inh INHALATION QID #8.5 g 12/09/20 02/24/21 Rx aerosol inhaler Symbicort 160 mcg-4.5 2 inh INHALATION BID #10.2 g NS 12/16/20 02/24/21 Rx mcg/actuation HFA aerosol inhaler (budesonide-formoterol) aspirin 81 mg tablet,delayed 81 mg PO DAILY #90 tab 12/16/20 02/24/21 Rx release (Aspirin Low Dose) atorvastatin 10 mg tablet 10 mg PO DAILY #90 tab 12/16/20 02/24/21 Rx albuterol sulfate 2.5 mg INHALATION Q6H #15 ml 02/21/21 02/24/21 Rx diphenhydramine 25 1 tab PO .Q HS PRN #14 tab 02/21/21 02/24/21 Rx mg-acetaminophen 500 mg tablet (Tylenol PM Extra Strength) doxycycline monohydrate 100 mg 100 mg PO BID #14 cap 02/21/21 02/24/21 Rx capsule dulaglutide 1.5 mg/0.5 mL 1.5 mg SUBCUT WK #2 ml 02/21/21 02/24/21 Rx subcutaneous pen injector (Trulicity) esomeprazole magnesium 20 mg 40 mg PO BID #60 cap 02/21/21 02/24/21 Rx capsule,delayed release (Nexium) metoprolol succinate 100 mg 100 mg PO BID #60 tab 02/21/21 02/24/21 Rx tablet,extended release 24 hr sacubitril 97 mg-valsartan 103 mg 1 tab PO BID #60 tab 02/21/21 02/24/21 Rx tablet (Entresto) spironolactone 25 mg tablet 75 mg PO QAM #90 tab 02/21/21 02/24/21 Rx (Aldactone) torsemide 20 mg tablet 20 mg PO BID #60 tab 02/21/21 02/24/21 Rx isosorbide mononitrate 30 mg 60 mg PO QAM 02/24/21 02/24/21 History tablet,extended release 24 hr Patient History Medical History Bacteremia Chronic respiratory failure Dilatation of thoracic aorta Fatty liver Hearing loss of both ears Hx of local infection of skin and subcutaneous tissue Iliac aneurysm Lung nodule NICM (nonischemic cardiomyopathy) Pt admitted for elective ICD. Underwent procedure without any complications monitored over night and discharged home. Nonproliferative retinopathy due to secondary diabetes Obstructive sleep apnea Umbilical hernia Vitamin D insufficiency Previously deficient, taking Vit D supplementation Surgical History History of carpal tunnel surgery History of cholecystectomy S/P tonsillectomy Family History Father , age 57 of an AL. Heart disease Myocardial infarction Mother , age 67 of a ruptured neck vessel Sudden Other Depression Lung disease No pertinent family history Denies family history of Ovarian cancer Prostate cancer Breast cancer Colorectal cancer Social History Smoking Status: Former smoker Tobacco Type: Cigarettes Age Started Using Tobacco: 14; Age Quit Using Tobacco: 18; Cigarettes Per Day: 40-50; Second Hand Exposure: No; Hx Alcohol Use: No Hx Substance Use: No Preferred Language: Mosotho Communication Ability: Effective Visual Impairment: No Limitations Hearing Ability: Normal Agronomy Manager Required: No Beliefs That Will Affect Care: None marital status: Current Living Situation: Spouse current occupational status: unemployed How many Children do You have: 0 Feels Safe at Home: Yes Childhood Exposure to Second-Hand Smoke: Yes Dental Care, Regularly: Yes Physical Activity Frequency: Does not Exercise Assistive Devices: CPAP and Oxygen - Continuous Review of Systems Review of Systems: All systems reviewed & are unremarkable except as noted in Subjective Physical Exam Constitutional: + morbidly obese; no acute distress Respiratory: Auscultation: + diminished lung sounds (Bilateral); no crackles, no rales, no rhonchi and no wheezes Cardiovascular: Rate/Rhythm: regular rate and regular rhythm Heart Sounds: normal S1 and normal S2; no murmur Vessels: radial pulses present; no JVD (Difficult to assess due to body habitus) and no carotid bruit Gastrointestinal (Abdomen): Inspection/Auscultation: abdomen normal to inspection and normal bowel sounds; abdomen not distended Percussion/Palpation: abdomen soft; abdomen nontender, no guarding and abdomen not rigid Neurologic: CN's II-XI intact bilaterally and moves all extremities; no focal motor deficits Motor/Sensory: no tremor Psychiatric: A+Ox3, euthymic affect Results & Data ([facility]) Vital Signs (Past 12 Hours) Vital Signs Temp Pulse Pulse Pulse Resp BP BP 02/25/21 07:40 64 22 02/25/21 07:39 36.6 C 73 18 111/82 02/25/21 05:00 88 21 02/25/21 02:36 36.3 C L 71 20 106/65 02/25/21 00:28 36.5 C 85 18 143/93 H 02/24/21 23:19 36.9 C 86 16 152/105 H Pulse Ox 02/25/21 07:40 93 02/25/21 07:39 96 02/25/21 05:00 92 02/25/21 02:36 98 02/25/21 00:28 97 02/24/21 23:19 97
[2021-02-25] MEDS: levoFLOXacin 750 MG TAB PO SCH (11:30)
--- NOTE | 2021-02-25 17:32 | Hospitalist Progress Note ---
Date of Service February 25, 2021 Assessment & Plan (1) Hemoptysis: Plan: 45yo male presenting with BRISCOE, cough with hemoptysis. CXR with diffuse bilateral airspace disease. Patient is no longer on anticoagulation with Apixaban, but is on ASA Patient contacted his PCP with complaint of hemoptysis on 02/16/21 I saw the hemoptysis on 02/24 and it was dime sized amounts mixed with clear sputum Most likely with hemoptysis due to ongoing cough from congestive heart failure Hemoptysis now resolved with holding home aspirin and treating with increased diuretics for CHF as below He has been seen by pulmonology before and this was also thought to be due to irritation from excessive coughing from CHF -Monitor sputum culture -Treatment CHF as below -Levaquin 750mg daily -Continue to hold ASA for now -Hemoglobin stable at 14.1 -No need for pulmonology consultation at this time (2) Acute respiratory failure with hypoxia: Plan: Secondary to CHF and possibly pneumonia? Treating with increased dose of diuretics and antibiotics Supplemental O2 to sats greater than 92% (3) Acute on chronic heart failure with reduced ejection fraction and diastolic dysfunction: Plan: With pulmonary edema on exam and dyspnea Increase torsemide to 40 mg p.o. twice daily Is really diuresing well Continue Toprol-XL 100 mg p.o. twice daily Continue Entresto and spironolactone Appreciate cardiology consultation Daily I's and O's, weights, low-sodium diet, fluid restriction (4) Recurrent infection of skin: Plan: Cellulitis of the abdominal wall with multiple open wounds secondary to insulin injection sites Started on linezolid and Levaquin for possible pneumonia but will also treat for cellulitis-is allergic to penicillin, ceftriaxone (5) Diabetes mellitus type II, uncontrolled: Plan: Poorly controlled. Blood sugars remain with hyperglycemia in the 2 and 300s at times primary special educator reports that patient states he has not been taking his insulin at home for a while now -Increase Lantus again to 15 units BID Continue NovoLog supplemental insulin -ISS -Goal blood sugar 100 - 140 -CC diet (6) Hypertension: Plan: Blood pressure controlled -Continue Imdur -Continue Metoprolol -Continue Entresto, spironolactone, torsemide -Monitor (7) NICM (nonischemic cardiomyopathy): Plan: Chronic. Volume state difficult to evaluate due to body habitus -Continue Imdur -Continue Metoprolol -Continue Entresto -Continue Spironolactone -Continue Torsemide -Monitor UOP, weight and electrolytes (8) Obstructive sleep apnea: Plan: Patient is noncompliant with BiPAP at home and claims that he lost forward Asked case management to get involved to see about proper equipment/supplies for BiPAP at home -Review of pulmonology notes show that he is supposed to be on BiPAP with settings 19/8 at home-ordered for here (9) COPD (chronic obstructive pulmonary disease): Plan: -Hold Symbicort with possible infection (10) Hypomagnesemia: Plan: Replaced with IV magnesium sulfate Follow-up on morning (11) Intellectual disability: Plan: Noted, with a long history of numerous hospitalizations and noncompliance (12) Morbid obesity with BMI of 50.0-59.9, adult: Plan: BMI 51.5 Needs weight loss Plan: DVT prophylaxis-SCDs Disposition-continue exam telemetry, but improving, hopeful for discharge to home tomorrow Admission and Anticipated Discharge Date Admission Date: February 24, 2021 Subjective Patient reports feeling better today but is complaining about having to urinate so much and feels he is urinating too much. He denies any further hemoptysis today and feels that his dyspnea is somewhat improved. He reports that he is not using BiPAP at home as he lost the cord to his machine No chest pains or abdominal pains. Telemetry is normal sinus rhythm and paced rhythm with rates in the 70s to 90s Review of Systems Review of Systems: All systems reviewed & are unremarkable except as noted in HPI & below Physical Exam Constitutional: WD/WN, vitals as above + morbidly obese Eyes: + anicteric sclerae ENMT: external ear and nose normal, oropharynx normal Neck: trachea midline, no thyromegaly Respiratory: normal respiratory effort and + cough Auscultation: + crackles (At bases bilaterally); no wheezes Cardiovascular: Rate/Rhythm: regular rate and regular rhythm Extremities: + edema (1+ pitting edema legs bilaterally) Chest (Breasts): Chest: + pacemaker Gastrointestinal (Abdomen): normal bowel sounds, soft, nontender, no hepatosplenomegaly Musculoskeletal: Extremities: extremities normal to inspection; no cyanosis and no clubbing Skin: Multiple small open circular wounds on abdomen with mild surrounding erythema, improved from yesterday Neurologic: moves all extremities and awake; no focal motor deficits Psychiatric: A+Ox3, euthymic affect Results & Data Results & Data ([facility]) Vital Signs (Past 12 Hours) Vital Signs Temp Pulse Resp BP BP Pulse Ox 02/25/21 16:05 36.6 C 74 18 123/73 96 02/25/21 14:15 74 20 96 02/25/21 10:48 36.4 C L 87 18 134/74 94 02/25/21 10:15 78 20 96 02/25/21 07:40 64 22 93 02/25/21 07:39 36.6 C 73 18 111/82 96 Laboratory Results 02/25/21 02/25/21 02/25/21 Range/Units 20:10 16:39 11:21 WBC (4.8-10.8) K/uL RBC (4.7-6.1) M/uL Hgb (14.0-18.0) g/dL Hct (42-52) % MCV (80-100) fL MCH (25-34) pg MCHC (32-36) g/dL RDW Std Deviation (36.4-46.3) fL RDW Coeff of Zoltan (11.5-14.5) % Plt Count (130-400) K/uL MPV (7.4-10.4) fL Immature Gran % (Auto) % Neut % (Auto) % Lymph % (Auto) % Clayton % (Auto) % Eos % (Auto) % Baso % (Auto) % Neut # (Auto) (1.4-6.5) K/uL Lymph # (Auto) (1.2-3.4) K/uL Clayton # (Auto) (0.11-0.59) K/uL Eos # (Auto) (0-0.5) K/uL Baso # (Auto) (0-0.2) K/uL Immature Gran # (Auto) (0.00-0.02) K/uL Sodium (136-145) mmol/L Potassium (3.5-5.1) mmol/L Chloride (98-107) mmol/L Carbon Dioxide (21-32) mmol/L Anion Gap (3-11) BUN (6-23) mg/dl Creatinine (0.6-1.4) mg/dl Est Cr Clr Drug Dosing ml/min Est GFR ( Amer) ml/min Est GFR (Non-Af Amer) ml/min BUN/Creatinine Ratio (10-20) Glucose (70-99) mg/dl POC Glucose 203 H 193 H 266 H (70-99) mg/dl Calcium (8.5-10.1) mg/dl Magnesium (1.7-2.4) mg/dl Total Bilirubin (0.2-1.0) mg/dl Direct Bilirubin (0-0.2) mg/dl AST (13-39) U/L ALT (7-52) U/L Alkaline Phosphatase (34-104) U/L Total Protein (6.0-8.3) gm/dl Albumin (3.4-5.0) gm/dl Beta-Hydroxybutyric Acd (0.2-2.81) mg/dl Nasal Screen MRSA (PCR) (Negative) 02/25/21 02/25/21 02/25/21 Range/Units 07:35 07:34 07:33 WBC (4.8-10.8) K/uL RBC (4.7-6.1) M/uL Hgb (14.0-18.0) g/dL Hct (42-52) % MCV (80-100) fL MCH (25-34) pg MCHC (32-36) g/dL RDW Std Deviation (36.4-46.3) fL RDW Coeff of Zoltan (11.5-14.5) % Plt Count (130-400) K/uL MPV (7.4-10.4) fL Immature Gran % (Auto) % Neut % (Auto) % Lymph % (Auto) % Clayton % (Auto) % Eos % (Auto) % Baso % (Auto) % Neut # (Auto) (1.4-6.5) K/uL Lymph # (Auto) (1.2-3.4) K/uL Clayton # (Auto) (0.11-0.59) K/uL Eos # (Auto) (0-0.5) K/uL Baso # (Auto) (0-0.2) K/uL Immature Gran # (Auto) (0.00-0.02) K/uL Sodium (136-145) mmol/L Potassium (3.5-5.1) mmol/L Chloride (98-107) mmol/L Carbon Dioxide (21-32) mmol/L Anion Gap (3-11) BUN (6-23) mg/dl Creatinine (0.6-1.4) mg/dl Est Cr Clr Drug Dosing ml/min Est GFR ( Amer) ml/min Est GFR (Non-Af Amer) ml/min BUN/Creatinine Ratio (10-20) Glucose (70-99) mg/dl POC Glucose 295 H 315 H* 274 H (70-99) mg/dl Calcium (8.5-10.1) mg/dl Magnesium (1.7-2.4) mg/dl Total Bilirubin (0.2-1.0) mg/dl Direct Bilirubin (0-0.2) mg/dl AST (13-39) U/L ALT (7-52) U/L Alkaline Phosphatase (34-104) U/L Total Protein (6.0-8.3) gm/dl Albumin (3.4-5.0) gm/dl Beta-Hydroxybutyric Acd (0.2-2.81) mg/dl Nasal Screen MRSA (PCR) (Negative) 02/25/21 02/25/21 02/25/21 Range/Units 07:32 06:35 06:35 WBC (4.8-10.8) K/uL RBC (4.7-6.1) M/uL Hgb (14.0-18.0) g/dL Hct (42-52) % MCV (80-100) fL MCH (25-34) pg MCHC (32-36) g/dL RDW Std Deviation (36.4-46.3) fL RDW Coeff of Zoltan (11.5-14.5) % Plt Count (130-400) K/uL MPV (7.4-10.4) fL Immature Gran % (Auto) % Neut % (Auto) % Lymph % (Auto) % Clayton % (Auto) % Eos % (Auto) % Baso % (Auto) % Neut # (Auto) (1.4-6.5) K/uL Lymph # (Auto) (1.2-3.4) K/uL Clayton # (Auto) (0.11-0.59) K/uL Eos # (Auto) (0-0.5) K/uL Baso # (Auto) (0-0.2) K/uL Immature Gran # (Auto) (0.00-0.02) K/uL Sodium 134 L (136-145) mmol/L Potassium 3.7 (3.5-5.1) mmol/L Chloride 98 (98-107) mmol/L Carbon Dioxide 31 (21-32) mmol/L Anion Gap 5 (3-11) BUN 13 (6-23) mg/dl Creatinine 1.08 (0.6-1.4) mg/dl Est Cr Clr Drug Dosing 130.5 ml/min Est GFR ( Amer) 96.2 ml/min Est GFR (Non-Af Amer) 83.0 ml/min BUN/Creatinine Ratio 12.0 (10-20) Glucose 311 H* (70-99) mg/dl POC Glucose 346 H* (70-99) mg/dl Calcium 7.9 L (8.5-10.1) mg/dl Magnesium 1.6 L (1.7-2.4) mg/dl Total Bilirubin 0.7 (0.2-1.0) mg/dl Direct Bilirubin 0.2 (0-0.2) mg/dl AST 14 (13-39) U/L ALT 16 (7-52) U/L Alkaline Phosphatase 92 (34-104) U/L Total Protein 6.7 (6.0-8.3) gm/dl Albumin 3.3 L (3.4-5.0) gm/dl Beta-Hydroxybutyric Acd 0.85 (0.2-2.81) mg/dl Nasal Screen MRSA (PCR) (Negative) 02/25/21 02/25/21 Range/Units 06:35 01:00 WBC 8.45 (4.8-10.8) K/uL RBC 5.24 (4.7-6.1) M/uL Hgb 14.1 (14.0-18.0) g/dL Hct 43.4 (42-52) % MCV 82.8 (80-100) fL MCH 26.9 (25-34) pg MCHC 32.5 (32-36) g/dL RDW Std Deviation 48.4 H (36.4-46.3) fL RDW Coeff of Zoltan 16.0 H (11.5-14.5) % Plt Count 215 (130-400) K/uL MPV 10.6 H (7.4-10.4) fL Immature Gran % (Auto) 0.4 % Neut % (Auto) 65.5 % Lymph % (Auto) 27.0 % Clayton % (Auto) 5.1 % Eos % (Auto) 1.9 % Baso % (Auto) 0.1 % Neut # (Auto) 5.54 (1.4-6.5) K/uL Lymph # (Auto) 2.28 (1.2-3.4) K/uL Clayton # (Auto) 0.43 (0.11-0.59) K/uL Eos # (Auto) 0.16 (0-0.5) K/uL Baso # (Auto) 0.01 (0-0.2) K/uL Immature Gran # (Auto) 0.03 H (0.00-0.02) K/uL Sodium (136-145) mmol/L Potassium (3.5-5.1) mmol/L Chloride (98-107) mmol/L Carbon Dioxide (21-32) mmol/L Anion Gap (3-11) BUN (6-23) mg/dl Creatinine (0.6-1.4) mg/dl Est Cr Clr Drug Dosing ml/min Est GFR ( Amer) ml/min Est GFR (Non-Af Amer) ml/min BUN/Creatinine Ratio (10-20) Glucose (70-99) mg/dl POC Glucose (70-99) mg/dl Calcium (8.5-10.1) mg/dl Magnesium (1.7-2.4) mg/dl Total Bilirubin (0.2-1.0) mg/dl Direct Bilirubin (0-0.2) mg/dl AST (13-39) U/L ALT (7-52) U/L Alkaline Phosphatase (34-104) U/L Total Protein (6.0-8.3) gm/dl Albumin (3.4-5.0) gm/dl Beta-Hydroxybutyric Acd (0.2-2.81) mg/dl Nasal Screen MRSA (PCR) Negative (Negative) PG Care Time/CCT Total # of Minutes Spent Total Time Spent with Patient: Total time spent is greater than 50% in coordination of care (as documented) at patient's floor/unit and/or counseling patient: Coding Level of Care Code 06560 Subseq Hosp Care Lvl 3 Diagnoses Hemoptysis R04.2 Recurrent infection of skin L08.9 Diabetes mellitus type II, uncontrolled E11.65 Glycemic state: with hyperglycemia Hypertension I10 Hypertension type: unspecified NICM (nonischemic cardiomyopathy) I42.8 Obstructive sleep apnea G47.33 COPD (chronic obstructive pulmonary disease) J44.9 COPD type: unspecified COPD Hypomagnesemia E83.42 Acute on chronic heart failure with reduced ejection fraction and diastolic dysfunction I50.43 Intellectual disability F79 Morbid obesity with BMI of 50.0-59.9, adult E66.01; Z68.43 Acute respiratory failure with hypoxia J96.01 (1) Diabetes mellitus type II, uncontrolled Glycemic state: with hyperglycemia Qualified Code(s): E11.65 - Type 2 diabetes mellitus with hyperglycemia (2) COPD (chronic obstructive pulmonary disease) COPD type: unspecified COPD Qualified Code(s): J44.9 - Chronic obstructive pulmonary disease, unspecified (3) Hypertension Hypertension type: unspecified Qualified Code(s): I10 - Essential (primary) hypertension
--- NOTE | 2021-02-26 04:20 | Communication Note ---
Date of Service: February 26, 2021 Subjective: Nursing notified me that the patient had chest pain. The patient had CPAP/bipap in place but mentioned that he had 5 minutes of chest pain that was new to him. Objective BP 112/68 HR 69 lying in bed reproducible chest pain on exam EKG normal sinus with normal axis, LBBB, no ST elevation or depression A/P 45 yo M w/ new onset of chest pain concerning for costochondritis given reproducible nature - diclofenac - troponin ordered - continue to monitor
[2021-02-26] MEDS ORDERED: DICLOFENAC SOD 1% GEL 100 GM TUBE EXT ONE (04:30)
[2021-02-26] MEDS: ALBUTEROL HFA 8 GM INHALER INH SCH ×2 (07:26→10:09)
[2021-02-26] MEDS: ATORVASTATIN 10 MG TAB PO SCH (08:26)
[2021-02-26] MEDS: VALSARTAN/SACUBITRIL 103/97MG TAB PO SCH (08:26)
[2021-02-26] MEDS: TORSEMIDE 20 MG TAB PO SCH (08:26)
[2021-02-26] MEDS: ISOSORBIDE MONO EXTENDED REL 60 MG TABCR PO SCH (08:26)
[2021-02-26] MEDS: PANTOprazole 40 MG TAB PO SCH (08:26)
[2021-02-26] MEDS: SPIRONOLACTONE 25 MG TAB PO SCH (08:26)
[2021-02-26] MEDS: NEOMYCIN/POLYMYX/BACITR OINT 15 GM TUBE EXT SCH (08:27)
[2021-02-26] MEDS: METOPROLOL SUCC 50MG EXT REL TAB PO SCH (08:27)
[2021-02-26] MEDS: LINEZOLID 600 MG/300 ML BAG IV SCH (08:27)
[2021-02-26] MEDS: INSULIN ASPART PER UNIT SC SCH ×2 (08:30→11:49)
[2021-02-26] MEDS ORDERED: INSULIN GLARGINE SOLOSTAR 100 UNITS/ML 3 ML PEN SC SCH (09:00)
--- NOTE | 2021-02-26 09:46 | Electrocardiogram Report ---
Test Reason : Blood Pressure : / mmHG Vent. Rate : 071 BPM Atrial Rate : 071 BPM P-R Int : 168 ms QRS Dur : 110 ms QT Int : 460 ms P-R-T Axes : 012 016 191 degrees QTc Int : 499 ms Normal sinus rhythm Possible Left atrial enlargement Non-specific intra-ventricular conduction delay Prolonged QT Abnormal ECG When compared with ECG of 24-FEB-2021 02:33, Vent. rate has decreased BY [address]/T changes are now present in the inferolateral leads Confirmed by Da Street ([id number]) on 02/26/2021 9:45:27 AM Referred By: REFERRED SELF Confirmed By:Da Street
[2021-02-26 10:06] LABS: Basophils # (auto) 0.01 K/uL (0-0.2); Basophils % (auto) 0.1 %; Eosinophils # (auto) 0.13 K/uL (0-0.5); Eosinophils % (auto) 1.4 %; Hematocrit (blood only) 45.8 % (42-52); Hemoglobin 14.8 g/dL (14.0-18.0); Immature Granulocytes # (auto) 0.05 K/uL (0.00-0.02); Immature Granulocytes % (auto) 0.5 %; Lymphocytes # (auto) 2.02 K/uL (1.2-3.4); Lymphocytes % (auto) 21.4 %; Mean Corpuscular Hemoglobin 26.7 pg (25-34); Mean Corpuscular Hgb Conc 32.3 g/dL (32-36); Mean Corpuscular Volume 82.7 fL (80-100); Monocytes # (auto) 0.73 K/uL (0.11-0.59); Monocytes % (auto) 7.7 %; Neutrophils # (auto) 6.48 K/uL (1.4-6.5); Neutrophils % (auto) 68.9 %; Platelet Count 212 K/uL (130-400); RDW Coefficient of Variation 15.9 % (11.5-14.5); RDW Standard Deviation 47.9 fL (36.4-46.3); Red Blood Count 5.54 M/uL (4.7-6.1); White Blood Count 9.42 K/uL (4.8-10.8)
[2021-02-26 10:10] VITALS: PULSE 82
[2021-02-26 10:30] LABS: Troponin I 0.03 ng/ml (0-0.04)
[2021-02-26 10:37] LABS: BUN Creatinine Ratio 18.8 (10-20); Creatinine Clr Calc Pharmacy 120.5 ml/min; Est GFR (African American) 92.1 ml/min; Est GFR (Non-African American) 79.5 ml/min; Magnesium 1.6 mg/dl (1.7-2.4); Potassium 3.9 mmol/L (3.5-5.1)
[2021-02-26 11:02] VITALS: BP 91/62; TEMP 97.7; O2SAT 98
[2021-02-26] MEDS: levoFLOXacin 750 MG TAB PO SCH (11:23)
--- NOTE | 2021-02-26 16:20 | Discharge Summary ---
Date of Service February 26, 2021 Admission HPI Per Admitting Provider Alok Huff is a 45yo male with multiple medical comorbidities presenting with cough, SOB and hemoptysis ongoing for 4-5 days. He reports coughing up copious amounts of bloody sputum. He has chest discomfort associated with coughing and deep breathing. He reports worsening shortness of breath and BRISCOE after short distances. Reports worsening LE edema, nausea, vomiting and lightheadedness as well. Patient additionally developed fluid filled lesions on his abdomen and lower extremities appx 5 days ago. He says that they easily open and theres blood and fluid inside. No additional complaints. ER Course: Insulin 8u IV, Levaquin 750mg IV Principal Diagnosis CHF exacerbation Discharge Exam Constitutional WD/WN, vitals as above Eyes EOM intact bilaterally; no conjunctival abnormality ENMT external ear and nose normal, oropharynx normal Neck trachea midline, no thyromegaly normal visual inspection Respiratory normal respiratory effort, lungs clear to auscultation no respiratory distress Cardiovascular RRR, no murmur, no edema Gastrointestinal (Abdomen) Inspection/Auscultation: abdomen normal to inspection; abdomen not distended Musculoskeletal no cyanosis or clubbing, extremities motor strength 5/5 Skin no rashes, warm and dry Neurologic moves all extremities and awake Psychiatric Orientation: alert, oriented to person and cooperative Discharge Data Allergies Allergy/AdvReac Type Severity Reaction Status Date / Time ceftriaxone Allergy Severe SHORTNESS Verified 02/24/21 02:54 OF BREATH lidocaine Allergy Severe SHORTNESS Verified 02/24/21 02:54 OF BREATH, diaphoretic, hives procaine Allergy Severe SHORTNESS Verified 02/24/21 02:54 OF BREATH, diaphoretic, hives amoxicillin Allergy Intermediate HIVES/FACIAL Verified 02/24/21 02:54 SWELLING clavulanic acid Allergy Intermediate HIVES/FACIAL Verified 02/24/21 02:54 SWELLING lisinopril Allergy Intermediate HIVES Verified 02/24/21 02:54 acetaminophen AdvReac Mild NAUSEA Verified 02/24/21 02:54 albuterol AdvReac Mild proair Verified 02/24/21 02:54 "trouble taking breaths" Fish Containing Products AdvReac Unknown Verified 02/24/21 02:54 Consultations 02/24/21 06:25 ED Decision to Admit Stat 02/24/21 19:16 Consult Cardiology Routine Hospital Course (1) Hemoptysis: 45yo male presenting with BRISCOE, cough with hemoptysis. CXR with diffuse bilateral airspace disease. Patient is no longer on anticoagulation with Apixaban, but is on ASA Patient contacted his PCP with complaint of hemoptysis on 02/16/21 Prior provider saw the hemoptysis on 02/24 and it was dime sized amounts mixed with clear sputum. Hemoptysis due to ongoing cough from congestive heart failure. Hemoptysis resolved with holding home aspirin and treating with increased diuretics for CHF as below. He has been seen by pulmonology before and this was also thought to be due to irritation from excessive coughing from CHF. He has seen pulmonology in the past. Desolderer noted hx of pulmonary nodules, but CTA chest in 06/2020 does not show any significant nodules, and CXR this admission makes no mention of nodule. He has been seen by Carlitos lazcano in the office previously. (2) Acute respiratory failure with hypoxia: Secondary to CHF and possibly pneumonia? Treating with increased dose of diuretics and antibiotics Supplemental O2 to sats greater than 92% (3) Acute on chronic heart failure with reduced ejection fraction and diastolic dysfunction: With pulmonary edema on exam and dyspnea Increased torsemide to 40 mg p.o. twice daily on discharge. Continue Toprol-XL 100 mg p.o. twice daily Continue Entresto and spironolactone Appreciate cardiology consultation Daily I's and O's, weights, low-sodium diet, fluid restriction (4) Recurrent infection of skin: Cellulitis of the abdominal wall with multiple open wounds secondary to insulin injection sites. - Started on linezolid and Levaquin for possible pneumonia but will also treat for cellulitis-is allergic to penicillin, ceftriaxone. -> Per patient, improving on discharge. Encouraged to finish off course of doxycycline previously prescribed. (5) Diabetes mellitus type II, uncontrolled: Poorly controlled. Blood sugars remain with hyperglycemia in the 2 and 300s at times. life educator reports that patient states he has not been taking his insulin at home for a while now. -CC diet -> Poorly controlled in the hospital. Per DM educator note, he has tried and stopped multiple medications and ran out of insulin several months ago. Follows with o/p endocrinology. Unfortunately, he requested to leave by noon on 02/26, and I did not have time to review full DM hx. He has appt on 03/16 with endocrinology and encouraged to follow-up with them. (6) Hypertension: Blood pressure controlled -Continue Imdur -Continue Metoprolol -Continue Entresto, spironolactone, torsemide -Monitor (7) NICM (nonischemic cardiomyopathy): Chronic. Volume state difficult to evaluate due to body habitus -Continue Imdur -Continue Metoprolol -Continue Entresto -Continue Spironolactone -Continue Torsemide -Monitor UOP, weight and electrolytes (8) Obstructive sleep apnea: Patient is noncompliant with BiPAP at home and claims that he lost his cord. This was discussed Dr. Hernandez last September as welll, and he has not obtained the cord or followed up with pulmonology in that time. Asked case management to get involved to see about proper equipment/supplies for BiPAP at home -Review of pulmonology notes show that he is supposed to be on BiPAP with settings 19/8 at home-ordered for here (9) COPD (chronic obstructive pulmonary disease): -Hold Symbicort with possible infection (10) Hypomagnesemia: Replaced with IV magnesium sulfate Follow-up on morning (11) Intellectual disability: Noted, with a long history of numerous hospitalizations and noncompliance (12) Morbid obesity with BMI of 50.0-59.9, adult: BMI 51.5 Needs weight loss DVT prophylaxis-SCDs Disposition-continue exam telemetry, but improving, hopeful for discharge to home tomorrow Total Time Total Time Spent Total Time Spent (In Minutes): 35 Discharge Plan Discharge Items Patient Disposition: Home - Self-Care Reason For Visit: HEMOPTYSIS Discharge Diagnosis: CHF exacerbation Cellulitis of abdomen Activity: Resume your previous activity Non-emergency contact: Primary Care Provider and Desolderer Call non-emergency contact if: your symptoms worsen Follow-up/Referrals: Richa Burr CRNP [Primary Care Provider] - 03/08/21 11:15 am Vick Bneoit, [Desolderer] - (Please see your bat person next week to make sure you are doing well.) Diet: Regular Addtl Attending Provider Instructions: Mr. Huff, You were admitted for CHF exacerbation which was causing some blood in your sputum when you coughed. Luckily, you are doing better at this point. We increased your torsemide to a slightly higher dose, but it is still lower than it has been in the past. Please see your bat person next week to make sure you are doing well. You also have some antibiotics to help keep your stomach from having an infection. This medication is called doxycycline and you picked up a script at [facility] for it on February 22. Since you came into the hospital 2 days later, you should have 5 days left of it. Please take this medication until it is gone. Please use careful technique when injecting your insulin to avoid getting an infection. Pending Studies at Discharge: No Stand-Alone Forms: [facility], Smoking Cessation Medications and DC Order Prescriptions: Continued aspirin [Aspirin Low Dose] 81 mg tablet,delayed release (DR/EC) 81 mg PO DAILY Qty: 90 RF: 3 atorvastatin 10 mg tablet 10 mg PO DAILY Qty: 90 RF: 3 budesonide-formoterol [Symbicort] 160-4.5 mcg/actuation HFA aerosol inhaler 2 inh inhalation BID Qty: 10.2 RF: 2 albuterol sulfate 90 mcg/actuation HFA aerosol inhaler 1 inh inhalation QID Qty: 8.5 RF: 2 spironolactone [Aldactone] 25 mg tablet 75 mg PO QAM Qty: 90 RF: 5 Entresto 97-103 mg tablet 1 tab PO BID Qty: 60 RF: 5 metoprolol succinate 100 mg tablet extended release 24 hr 100 mg PO BID Qty: 60 RF: 5 esomeprazole magnesium [Nexium] 20 mg capsule,delayed release(DR/EC) 40 mg PO BID Qty: 60 RF: 5 Trulicity 1.5 mg/0.5 mL pen injector 1.5 mg SUBCUT WK Qty: 2 RF: 5 doxycycline monohydrate 100 mg capsule 100 mg PO BID Qty: 14 RF: 0 albuterol sulfate 2.5 mg /3 mL (0.083 %) solution for nebulization 2.5 mg inhalation Q6H Qty: 15 RF: 2 diphenhydramine-acetaminophen [Tylenol PM Extra Strength] 25-500 mg tablet 1 tab PO .Q HS PRN (Reason: pain) Qty: 14 RF: 0 nitroglycerin [Nitrostat] 0.4 mg tablet, sublingual 0.4 mg sublingual UD PRN (Reason: Chest Pain) RF: 0 cholecalciferol (vitamin D3) [Vitamin D3] 50 mcg (2,000 unit) Tablet 50 mcg PO BID RF: 0 isosorbide mononitrate 30 mg tablet extended release 24 hr 60 mg PO QAM RF: 0 Changed torsemide 20 mg tablet 40 mg PO BID Qty: 60 RF: 5 Discharge Orders: Discharge Order (Routine); Ordered 02/26/21 Ordered By: Mynor Hunt Admission Data Admit Date/Time: 02/24/21 06:32 Attending Provider: Mynor Hunt Admit Provider: Ciarra Burr Primary Care Provider: Richa Burr Other Providers: Vick Benoit ; Mynor Hunt Other Interventions: Discharge Summary Assessment (RN) Last Done: 02/26/21 11:00 Coding Level of Care Code D/C DAY MANAGEMENT >30 MINS Diagnoses Hemoptysis R04.2 Acute respiratory failure with hypoxia J96.01 Acute on chronic heart failure with reduced ejection fraction and diastolic dysfunction I50.43 Recurrent infection of skin L08.9 Diabetes mellitus type II, uncontrolled E11.65 Glycemic state: with hyperglycemia Hypertension I10 Hypertension type: unspecified NICM (nonischemic cardiomyopathy) I42.8 Obstructive sleep apnea G47.33 COPD (chronic obstructive pulmonary disease) J44.9 COPD type: unspecified COPD Hypomagnesemia E83.42 Intellectual disability F79 Morbid obesity with BMI of 50.0-59.9, adult E66.01; Z68.43
== END 2021-02-26 12:26 | disposition home or self-care (01) ==
LOC: ED 02:38 → EDINP 06:32 → INTOOBSV 06:32 → SUATTDRO 06:32 → 2N 02-25 00:10
DX: Z79.899 Other long term (current) drug therapy; E11.65 Type 2 diabetes mellitus with hyperglycemia; Z68.43 Body mass index [BMI] 50.0-59.9, adult; R04.2 Hemoptysis; L08.9 Local infection of the skin and subcutaneous tissue, unspecified; E66.01 Morbid (severe) obesity due to excess calories; Z88.8 Allergy status to other drugs, medicaments and biological substances; I42.8 Other cardiomyopathies; I11.0 Hypertensive heart disease with heart failure; J96.01 Acute respiratory failure with hypoxia; Z91.018 Allergy to other foods; Z87.891 Personal history of nicotine dependence; F79 Unspecified intellectual disabilities; G47.33 Obstructive sleep apnea (adult) (pediatric); J44.9 Chronic obstructive pulmonary disease, unspecified; I50.43 Acute on chronic combined systolic (congestive) and diastolic (congestive) heart failure; Z20.822 Contact with and (suspected) exposure to COVID-19; E83.49 Other disorders of magnesium metabolism; Z88.0 Allergy status to penicillin; Z79.1 Long term (current) use of non-steroidal anti-inflammatories (NSAID)

== ENCOUNTER 2021-03-11 09:08 | Inpatient (IN) ==
--- NOTE | 2021-03-11 09:35 | Emergency Department Note ---
Impression & Plan Acute CHF, NICM (nonischemic cardiomyopathy), Respiratory failure, Acute respiratory distress ED Provider Note NAME: HARDIK LOVE AGE: 45 SEX: M : 1975 ARRIVES VIA: Ambulance INFORMANT: Patient ED PROVIDER(S): Ananth Velazco DO CHIEF COMPLAINT: shortness of breath HPI: Patient is a 45-year-old male with a past medical history of CHF, diabetes, morbid obesity, respiratory failure on O2, AICD placement, nonischemic cardiomyopathy who presents the ER for worsening shortness of breath. Patient notes that this has been getting significantly worse. He has to sit up straight as he is so short of breath. Any movement makes him extremely winded. He is continuing to cough up blood and has been worsening. He denies any belly pain nausea vomiting or diarrhea. He admits to increased swelling. No dysuria urgency or frequency. No other exacerbating or remitting factors. ROS: See above HPI for pertinent positives & negatives. A total of 10 systems reviewed and were otherwise negative. PAST MEDICAL HISTORY:See Below PAST SURGICAL HISTORY:See Below FAMILY HISTORY:See Below SOCIAL HISTORY:See Below HOME MEDICATIONS:See Below ALLERGIES:See Below VITALS:See Below PHYSICAL EXAMINATION: GENERAL: Sitting up in bed, alert, ill-appearing, disheveled, morbidly obese, significantly dyspneic with conversation EYE EXAM: normal conjunctiva. PERRL and EOM's grossly intact. OROPHARYNX: no exudate, no erythema, lips, buccal mucosa, and tongue normal and mucous membranes are moist NECK: supple, no nuchal rigidity, no adenopathy, non-tender LUNGS: Crackles bilateral bases. Normal chest wall mechanics HEART: Distant, S1 normal and S2 normal ABDOMEN: abdomen soft, non-tender, normo-active bowel sounds, no masses, no rebound or guarding. UPPER EXTREMITIES: upper extremities are grossly normal. LOWER EXTREMITIES: Pitting edema bilaterally NEURO EXAM: Normal sensorium, cranial nerves II-XII grossly intact, normal speech, no gross weakness of arms, no gross weakness of legs. MEDICAL DECISION MAKING: Patient is a 45-year-old male with extensive past medical history and above- stated complaint presents ER for shortness of breath. IV was established blood work was obtained. Labs show no significant leukocytosis or anemia. VBG was unremarkable. BMP with glucose of 355. LFTs bilirubin and troponin were negative. proBNP slightly up. Lipase was normal. Patient has gained close to 30 kg since last being discharged. Chest x-ray shows florid pulmonary edema. He was hypertensive. He was placed on Nitropaste given IV Lasix and placed on BiPAP. He deteriorated after being on BiPAP for about 1/2-hour. PEEP was increased. He was taken in the A1. He did improve rather quickly and was not intubated. He was discussed with the hospitalist admitted for further work-up. Triage Nursing notes reviewed. Limited review of prior medical records performed Vital Signs: reviewed and remarkable for HTN and tachy Differential diagnosis: Differential diagnoses includes but is not limited to acute coronary syndrome, myocardial infarction, pericarditis, pulmonary embolus, aortic dissection, pneumonia, pneumothorax, musculoskeletal, shingles, esophageal. ER treatment provided: See below Diagnostics interpreted by me: ECG: Sinus tachycardia rate of [address] depressions in the high lateral leads QTC 489 No significant change from previous Cardiac Monitoring: An order was placed for continuous cardiac monitoring. The monitor shows a rate of 110 with sinus rhythm. Laboratory studies: As stated above and show below. Imaging studies: Chest x-ray with florid pulmonary edema Consultation(s): Discussed with Dr. Shemar Street for admission Procedures: none Critical Care: I have personally spent 32 minutes of critical care time in the direct management of this patient. This includes bedside care, interpretation of diagnostic studies, and testing, discussion with consultants, patient, and family members, and other required patient management activities. This 32 minutes is in excess of all separately billable procedures. Past Med/Surg History Medical History Bacteremia Chronic respiratory failure Dilatation of thoracic aorta Fatty liver Hearing loss of both ears Hx of local infection of skin and subcutaneous tissue Iliac aneurysm Lung nodule NICM (nonischemic cardiomyopathy) Pt admitted for elective ICD. Underwent procedure without any complications monitored over night and discharged home. 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 Heart disease Myocardial infarction Mother , age 67 of a ruptured neck vessel Sudden Other Depression Lung disease No pertinent family history Denies family history of Ovarian cancer Prostate cancer Breast cancer Colorectal cancer Social History Smoking Status: Former smoker Tobacco Type: Cigarettes Age Started Using Tobacco: 14; Age Quit Using Tobacco: 18; Cigarettes Per Day: 40-50; Second Hand Exposure: No; Hx Alcohol Use: No Hx Substance Use: No Preferred Language: Bulgarian Communication Ability: Effective Visual Impairment: No Limitations Hearing Ability: Normal Copy Center Operator Required: No Beliefs That Will Affect Care: None marital status: Current Living Situation: Spouse current occupational status: unemployed How many Children do You have: 0 Feels Safe at Home: Yes Childhood Exposure to Second-Hand Smoke: Yes Dental Care, Regularly: Yes Physical Activity Frequency: Does not Exercise Assistive Devices: Oxygen - Continuous Allergies Allergies Allergy/AdvReac Type Severity Reaction Status Date / Time ceftriaxone Allergy Severe SHORTNESS Verified 03/11/21 10:49 OF BREATH lidocaine Allergy Severe SHORTNESS Verified 03/11/21 10:49 OF BREATH, diaphoretic, hives procaine Allergy Severe SHORTNESS Verified 03/11/21 10:49 OF BREATH, diaphoretic, hives amoxicillin Allergy Intermediate HIVES/FACIAL Verified 03/11/21 10:49 SWELLING clavulanic acid Allergy Intermediate HIVES/FACIAL Verified 03/11/21 10:49 SWELLING lisinopril Allergy Intermediate HIVES Verified 03/11/21 10:49 acetaminophen AdvReac Mild NAUSEA Verified 03/11/21 10:49 albuterol AdvReac Mild proair Verified 03/11/21 10:49 "trouble taking breaths" Fish Containing Products AdvReac Unknown Verified 03/11/21 10:49 Home Meds Home Medications Medication Instructions Recorded Confirmed nitroglycerin 0.4 mg sublingual 0.4 mg SUBLINGUAL UD PRN 04/24/19 03/11/21 tablet (Nitrostat) cholecalciferol (vitamin D3) 50 50 mcg PO BID 10/04/19 03/11/21 mcg (2,000 unit) tablet (Vitamin D3) isosorbide mononitrate 30 mg 60 mg PO QAM 02/24/21 03/11/21 tablet,extended release 24 hr Previous Rx's Medication Instructions Recorded albuterol sulfate 90 mcg/actuation 1 inh INHALATION QID #8.5 g 12/09/20 aerosol inhaler Symbicort 160 mcg-4.5 2 inh INHALATION BID #10.2 g NS 12/16/20 mcg/actuation HFA aerosol inhaler (budesonide-formoterol) aspirin 81 mg tablet,delayed 81 mg PO DAILY #90 tab 12/16/20 release (Aspirin Low Dose) atorvastatin 10 mg tablet 10 mg PO DAILY #90 tab 12/16/20 albuterol sulfate 2.5 mg INHALATION Q6H #15 ml 02/21/21 diphenhydramine 25 1 tab PO .Q HS PRN #14 tab 02/21/21 mg-acetaminophen 500 mg tablet (Tylenol PM Extra Strength) doxycycline monohydrate 100 mg 100 mg PO BID #14 cap 02/21/21 capsule dulaglutide 1.5 mg/0.5 mL 1.5 mg SUBCUT WK #2 ml 02/21/21 subcutaneous pen injector (Trulicity) esomeprazole magnesium 20 mg 40 mg PO BID #60 cap 02/21/21 capsule,delayed release (Nexium) metoprolol succinate 100 mg 100 mg PO BID #60 tab 02/21/21 tablet,extended release 24 hr sacubitril 97 mg-valsartan 103 mg 1 tab PO BID #60 tab 02/21/21 tablet (Entresto) spironolactone 25 mg tablet 75 mg PO QAM #90 tab 02/21/21 (Aldactone) torsemide 20 mg tablet 40 mg PO BID #60 tab 02/26/21 Results & Data (ED) Vital Signs Vital Signs - 24 hr 03/11/21 08:59 03/11/21 09:15 03/11/21 09:20 Temperature 36.9 C Temperature Source Oral Pulse Rate 119 H 120 H 118 H Pulse Rate from SpO2 Sensor 121 H 118 H Pulse Rhythm Regular Pulse Strength Normal Respiratory Rate 20 16 19 Respiratory Effort / Characteristics Labored Respiratory Depth Normal Respiratory Pattern Tachypnea Blood Pressure 162/135 H Blood Pressure Mean 144 Pulse Oximetry 96 95 96 Oxygen Delivery Method Oxymask Oxygen Flow Rate 5 Fraction of Inspired Oxygen Sepsis Recent Fever Within 48 Hours No Sepsis New/Unexplained Change in Mental Status No Sepsis Action Taken by Nursing No Action Required Pulse Oximetry Post Tiitration 96 03/11/21 09:30 03/11/21 09:40 03/11/21 09:50 Temperature Temperature Source Pulse Rate 120 H 127 H 129 H Pulse Rate from SpO2 Sensor 120 H 128 H 129 H Pulse Rhythm Pulse Strength Respiratory Rate 32 H 17 28 H Respiratory Effort / Characteristics Respiratory Depth Respiratory Pattern Blood Pressure Blood Pressure Mean Pulse Oximetry 97 92 88 L Oxygen Delivery Method Oxygen Flow Rate Fraction of Inspired Oxygen Sepsis Recent Fever Within 48 Hours Sepsis New/Unexplained Change in Mental Status Sepsis Action Taken by Nursing Pulse Oximetry Post Tiitration 03/11/21 10:00 03/11/21 10:10 03/11/21 10:20 Temperature Temperature Source Pulse Rate 122 H 124 H 128 H Pulse Rate from SpO2 Sensor 122 H 124 H 128 H Pulse Rhythm Pulse Strength Respiratory Rate 31 H 17 21 Respiratory Effort / Characteristics Respiratory Depth Respiratory Pattern Blood Pressure Blood Pressure Mean Pulse Oximetry 95 94 91 Oxygen Delivery Method Oxygen Flow Rate Fraction of Inspired Oxygen Sepsis Recent Fever Within 48 Hours Sepsis New/Unexplained Change in Mental Status Sepsis Action Taken by Nursing Pulse Oximetry Post Tiitration 03/11/21 10:30 03/11/21 10:35 03/11/21 10:45 Temperature Temperature Source Pulse Rate 127 H 120 H 113 H Pulse Rate from SpO2 Sensor 127 H Pulse Rhythm Pulse Strength Respiratory Rate 24 28 H 33 H Respiratory Effort / Characteristics Spontaneous Short of Breath Respiratory Depth Normal Respiratory Pattern Tachypnea Blood Pressure Blood Pressure Mean Pulse Oximetry 90 95 Oxygen Delivery Method Oxygen Flow Rate Fraction of Inspired Oxygen 30 Sepsis Recent Fever Within 48 Hours Sepsis New/Unexplained Change in Mental Status Sepsis Action Taken by Nursing Pulse Oximetry Post Tiitration 03/11/21 11:00 03/11/21 11:13 03/11/21 11:15 Temperature Temperature Source Pulse Rate 143 H 144 H 137 H Pulse Rate from SpO2 Sensor 144 H 138 H Pulse Rhythm Pulse Strength Respiratory Rate 20 26 H 38 H Respiratory Effort / Characteristics Respiratory Depth Respiratory Pattern Blood Pressure 229/197 H 201/143 H Blood Pressure Mean 207 162 Pulse Oximetry 94 95 Oxygen Delivery Method Oxygen Flow Rate Fraction of Inspired Oxygen Sepsis Recent Fever Within 48 Hours Sepsis New/Unexplained Change in Mental Status Sepsis Action Taken by Nursing Pulse Oximetry Post Tiitration 03/11/21 11:25 03/11/21 11:30 03/11/21 11:31 Temperature Temperature Source Pulse Rate 132 H 130 H Pulse Rate from SpO2 Sensor 262 H 131 H Pulse Rhythm Pulse Strength Respiratory Rate 31 H 33 H Respiratory Effort / Characteristics Respiratory Depth Respiratory Pattern Blood Pressure 182/134 H 175/133 H Blood Pressure Mean 150 147 Pulse Oximetry 96 96 Oxygen Delivery Method Oxygen Flow Rate Fraction of Inspired Oxygen Sepsis Recent Fever Within 48 Hours Sepsis New/Unexplained Change in Mental Status Sepsis Action Taken by Nursing Pulse Oximetry Post Tiitration 03/11/21 11:45 03/11/21 11:46 03/11/21 12:00 Temperature Temperature Source Pulse Rate 129 H 132 H 123 H Pulse Rate from SpO2 Sensor 131 H 132 H 124 H Pulse Rhythm Pulse Strength Respiratory Rate 31 H 30 H 26 H Respiratory Effort / Characteristics Respiratory Depth Respiratory Pattern Blood Pressure 184/133 H Blood Pressure Mean 150 Pulse Oximetry 97 96 96 Oxygen Delivery Method Oxygen Flow Rate Fraction of Inspired Oxygen Sepsis Recent Fever Within 48 Hours Sepsis New/Unexplained Change in Mental Status Sepsis Action Taken by Nursing Pulse Oximetry Post Tiitration 03/11/21 12:01 03/11/21 12:15 03/11/21 12:16 Temperature Temperature Source Pulse Rate 119 H 116 H 115 H Pulse Rate from SpO2 Sensor 121 H 117 H 114 H Pulse Rhythm Pulse Strength Respiratory Rate 29 H 27 H 32 H Respiratory Effort / Characteristics Respiratory Depth Respiratory Pattern Blood Pressure 154/123 H 149/120 H Blood Pressure Mean 133 129 Pulse Oximetry 94 95 95 Oxygen Delivery Method Oxygen Flow Rate Fraction of Inspired Oxygen Sepsis Recent Fever Within 48 Hours Sepsis New/Unexplained Change in Mental Status Sepsis Action Taken by Nursing Pulse Oximetry Post Tiitration 03/11/21 12:30 03/11/21 12:31 03/11/21 12:45 Temperature Temperature Source Pulse Rate 108 H 123 H 109 H Pulse Rate from SpO2 Sensor 101 H 123 H 108 H Pulse Rhythm Pulse Strength Respiratory Rate 25 H 28 H 31 H Respiratory Effort / Characteristics Respiratory Depth Respiratory Pattern Blood Pressure 162/118 H Blood Pressure Mean 132 Pulse Oximetry 94 93 95 Oxygen Delivery Method Oxygen Flow Rate Fraction of Inspired Oxygen Sepsis Recent Fever Within 48 Hours Sepsis New/Unexplained Change in Mental Status Sepsis Action Taken by Nursing Pulse Oximetry Post Tiitration 03/11/21 12:46 Temperature Temperature Source Pulse Rate 103 H Pulse Rate from SpO2 Sensor 104 H Pulse Rhythm Pulse Strength Respiratory Rate 28 H Respiratory Effort / Characteristics Respiratory Depth Respiratory Pattern Blood Pressure 152/101 H Blood Pressure Mean 118 Pulse Oximetry 97 Oxygen Delivery Method Oxygen Flow Rate Fraction of Inspired Oxygen Sepsis Recent Fever Within 48 Hours Sepsis New/Unexplained Change in Mental Status Sepsis Action Taken by Nursing Pulse Oximetry Post Tiitration Laboratory Data Result diagrams: 03/11/21 09:32 03/11/21 09:32 Lab Results 03/11/21 03/11/21 03/11/21 Range/Units 09:32 09:32 09:41 WBC 8.66 (4.8-10.8) K/uL RBC 5.36 (4.7-6.1) M/uL Hgb 14.3 (14.0-18.0) g/dL Hct 43.9 (42-52) % MCV 81.9 (80-100) fL MCH 26.7 (25-34) pg MCHC 32.6 (32-36) g/dL RDW Std Deviation 49.5 H (36.4-46.3) fL RDW Coeff of Zoltan 16.6 H (11.5-14.5) % Plt Count 176 (130-400) K/uL MPV 10.1 (7.4-10.4) fL Immature Gran % (Auto) 0.3 % Neut % (Auto) 72.9 % Lymph % (Auto) 18.7 % [place] % (Auto) 7.3 % Eos % (Auto) 0.7 % Baso % (Auto) 0.1 % Neut # (Auto) 6.31 (1.4-6.5) K/uL Lymph # (Auto) 1.62 (1.2-3.4) K/uL [place] # (Auto) 0.63 H (0.11-0.59) K/uL Eos # (Auto) 0.06 (0-0.5) K/uL Baso # (Auto) 0.01 (0-0.2) K/uL Immature Gran # (Auto) 0.03 H (0.00-0.02) K/uL VBG pH (7.36-7.41) VBG pCO2 (38-50) mmHg VBG pO2 mmHg VBG HCO3 mmol/L VBG O2 Saturation % VBG Base Excess mEq/L Barometric Pressure mm/Hg Sodium 133 L (136-145) mmol/L Potassium 4.2 (3.5-5.1) mmol/L Chloride 102 (98-107) mmol/L Carbon Dioxide 22 (21-32) mmol/L Anion Gap 9 (3-11) BUN 13 (6-23) mg/dl Creatinine 0.96 (0.6-1.4) mg/dl Est Cr Clr Drug Dosing Not Reportable Est GFR ( Amer) 111.0 ml/min Est GFR (Non-Af Amer) 95.7 ml/min BUN/Creatinine Ratio 13.5 (10-20) Glucose 355 H* (70-99(Fasting)) mg/dl POC Glucose (70-99) mg/dl Calcium 8.5 (8.5-10.1) mg/dl Total Bilirubin 0.8 (0.2-1.0) mg/dl AST 17 (13-39) U/L ALT 19 (7-52) U/L Alkaline Phosphatase 94 (34-104) U/L Troponin I 0.04 (0-0.04) ng/ml B-Natriuretic Peptide (0-100) pg/ml Total Protein 7.3 (6.0-8.3) gm/dl Albumin 3.7 (3.4-5.0) gm/dl Globulin 3.6 (2.5-4.0) gm/dl Albumin/Globulin Ratio 1.0 (0.9-2) Lipase 22 (11-82) U/L SARS-CoV-2, RNA, NAAT NEGATIVE (NEGATIVE) 03/11/21 03/11/21 03/11/21 Range/Units 09:53 10:42 11:33 WBC (4.8-10.8) K/uL RBC (4.7-6.1) M/uL Hgb (14.0-18.0) g/dL Hct (42-52) % MCV (80-100) fL MCH (25-34) pg MCHC (32-36) g/dL RDW Std Deviation (36.4-46.3) fL RDW Coeff of Zoltan (11.5-14.5) % Plt Count (130-400) K/uL MPV (7.4-10.4) fL Immature Gran % (Auto) % Neut % (Auto) % Lymph % (Auto) % [place] % (Auto) % Eos % (Auto) % Baso % (Auto) % Neut # (Auto) (1.4-6.5) K/uL Lymph # (Auto) (1.2-3.4) K/uL [place] # (Auto) (0.11-0.59) K/uL Eos # (Auto) (0-0.5) K/uL Baso # (Auto) (0-0.2) K/uL Immature Gran # (Auto) (0.00-0.02) K/uL VBG pH (7.36-7.41) VBG pCO2 (38-50) mmHg VBG pO2 mmHg VBG HCO3 mmol/L VBG O2 Saturation % VBG Base Excess mEq/L Barometric Pressure mm/Hg Sodium (136-145) mmol/L Potassium (3.5-5.1) mmol/L Chloride (98-107) mmol/L Carbon Dioxide (21-32) mmol/L Anion Gap (3-11) BUN (6-23) mg/dl Creatinine (0.6-1.4) mg/dl Est Cr Clr Drug Dosing Est GFR ( Amer) ml/min Est GFR (Non-Af Amer) ml/min BUN/Creatinine Ratio (10-20) Glucose (70-99(Fasting)) mg/dl POC Glucose 320 H* 337 H* (70-99) mg/dl Calcium (8.5-10.1) mg/dl Total Bilirubin (0.2-1.0) mg/dl AST (13-39) U/L ALT (7-52) U/L Alkaline Phosphatase (34-104) U/L Troponin I (0-0.04) ng/ml B-Natriuretic Peptide 701 H (0-100) pg/ml Total Protein (6.0-8.3) gm/dl Albumin (3.4-5.0) gm/dl Globulin (2.5-4.0) gm/dl Albumin/Globulin Ratio (0.9-2) Lipase (11-82) U/L SARS-CoV-2, RNA, NAAT (NEGATIVE) 03/11/21 Range/Units 12:08 WBC (4.8-10.8) K/uL RBC (4.7-6.1) M/uL Hgb (14.0-18.0) g/dL Hct (42-52) % MCV (80-100) fL MCH (25-34) pg MCHC (32-36) g/dL RDW Std Deviation (36.4-46.3) fL RDW Coeff of Zoltan (11.5-14.5) % Plt Count (130-400) K/uL MPV (7.4-10.4) fL Immature Gran % (Auto) % Neut % (Auto) % Lymph % (Auto) % [place] % (Auto) % Eos % (Auto) % Baso % (Auto) % Neut # (Auto) (1.4-6.5) K/uL Lymph # (Auto) (1.2-3.4) K/uL [place] # (Auto) (0.11-0.59) K/uL Eos # (Auto) (0-0.5) K/uL Baso # (Auto) (0-0.2) K/uL Immature Gran # (Auto) (0.00-0.02) K/uL VBG pH 7.37 (7.36-7.41) VBG pCO2 43 (38-50) mmHg VBG pO2 47 mmHg VBG HCO3 24 mmol/L VBG O2 Saturation 79.0 % VBG Base Excess -1.3 mEq/L Barometric Pressure 733.0 mm/Hg Sodium (136-145) mmol/L Potassium (3.5-5.1) mmol/L Chloride (98-107) mmol/L Carbon Dioxide (21-32) mmol/L Anion Gap (3-11) BUN (6-23) mg/dl Creatinine (0.6-1.4) mg/dl Est Cr Clr Drug Dosing Est GFR ( Amer) ml/min Est GFR (Non-Af Amer) ml/min BUN/Creatinine Ratio (10-20) Glucose (70-99(Fasting)) mg/dl POC Glucose (70-99) mg/dl Calcium (8.5-10.1) mg/dl Total Bilirubin (0.2-1.0) mg/dl AST (13-39) U/L ALT (7-52) U/L Alkaline Phosphatase (34-104) U/L Troponin I (0-0.04) ng/ml B-Natriuretic Peptide (0-100) pg/ml Total Protein (6.0-8.3) gm/dl Albumin (3.4-5.0) gm/dl Globulin (2.5-4.0) gm/dl Albumin/Globulin Ratio (0.9-2) Lipase (11-82) U/L SARS-CoV-2, RNA, NAAT (NEGATIVE) Administered Medications Nitroglycerin (Nitroglycerin 2% Ointment 30gm Tube) 2 inch EXT Q6H SUKHWINDER Stop: 04/10/21 10:14 Last Admin: 03/11/21 10:37 Dose: 2 inch Documented by: [id number] Discontinued Medications Furosemide (Furosemide 40 Mg/4 Ml Vial) 40 mg IV NOW STA Stop: 03/11/21 10:07 Last Admin: 03/11/21 10:37 Dose: 40 mg Documented by: [id number] Furosemide (Furosemide 40 Mg/4 Ml Vial) 40 mg IV ONE STA Stop: 03/11/21 11:39 Last Admin: 03/11/21 11:53 Dose: 40 mg Documented by: [id number] Insulin Human Regular (Novolin-R Insulin Per Unit Charge) 10 units IV NOW STA Stop: 03/11/21 10:37 Last Admin: 03/11/21 10:48 Dose: 10 units Documented by: [id number] Cosigned by: [id number] Miscellaneous (Rapid Sequence Induction Bag) Confirm Administered Dose 1 ea .ROUTE .STK-MED ONE Stop: 03/11/21 11:21 Last Admin: 03/11/21 11:54 Dose: 1 ea Documented by: [id number] Imaging Data Radiologist's Impression: Chest X-Ray 03/11/21 09:34 XR chest 1V portable CLINICAL HISTORY: Atypical chest pain. COMPARISON STUDY: Chest CT July 04, 2020. Chest radiograph February 24, 2021. FINDINGS: Left subclavian pacer/AICD is in place. There is no pneumothorax. No definite pleural effusion. Interstitial thickening and bilateral opacities are noted. The opacities have progressed since prior examination. Cardiomegaly is unchanged. Mediastinal contours are stable. IMPRESSION: 1. Progression of bilateral airspace opacities. This favors pneumonia however alveolar pulmonary edema could appear similar. 2. Interstitial thickening suggestive of pulmonary edema. 3. Cardiomegaly. ACT 112: Negative or not required by law. Electronically signed by: Eyad Rosario M.D. 03/11/2021 9:55 AM Venous Doppler Study 03/11/21 11:35 BILATERAL LOWER EXTREMITY VENOUS DOPPLER HISTORY: Acute pain and swelling of the lower legs evaluate for DVT COMPARISON STUDY: Doppler study 11/02/2019 FINDINGS: Limited exam secondary to patient body habitus and positioning. The bilateral common femoral and saphenous veins are not diagnostically visualized. There is normal compressibility, flow, and augmentation within the bilateral lower extremity deep venous systems. IMPRESSION: Limited exam. No DVT within the right or left lower extremity. ACT 112: Negative or not required by law. Electronically signed by: Sony Irby M.D. 03/11/2021 12:33 PM Discharge Plan Visit Data Chief Complaint: Shortness of Breath/Dyspnea ED Provider: Ananth Velazco Discharge Problem: Acute CHF, NICM (nonischemic cardiomyopathy), Respiratory failure, Acute respiratory distress
[2021-03-11 09:43] LABS: Basophils # (auto) 0.01 K/uL (0-0.2); Basophils % (auto) 0.1 %; Eosinophils # (auto) 0.06 K/uL (0-0.5); Eosinophils % (auto) 0.7 %; Hematocrit (blood only) 43.9 % (42-52); Hemoglobin 14.3 g/dL (14.0-18.0); Immature Granulocytes # (auto) 0.03 K/uL (0.00-0.02); Immature Granulocytes % (auto) 0.3 %; Lymphocytes # (auto) 1.62 K/uL (1.2-3.4); Lymphocytes % (auto) 18.7 %; Mean Corpuscular Hemoglobin 26.7 pg (25-34); Mean Corpuscular Hgb Conc 32.6 g/dL (32-36); Mean Corpuscular Volume 81.9 fL (80-100); Mean Platelet Volume 10.1 fL (7.4-10.4); Monocytes # (auto) 0.63 K/uL (0.11-0.59); Monocytes % (auto) 7.3 %; Neutrophils # (auto) 6.31 K/uL (1.4-6.5); Neutrophils % (auto) 72.9 %; Platelet Count 176 K/uL (130-400); RDW Coefficient of Variation 16.6 % (11.5-14.5); RDW Standard Deviation 49.5 fL (36.4-46.3); Red Blood Count 5.36 M/uL (4.7-6.1); White Blood Count 8.66 K/uL (4.8-10.8)
--- NOTE | 2021-03-11 09:56 | XRay Report ---
XR chest 1V portable CLINICAL HISTORY: Atypical chest pain. COMPARISON STUDY: Chest CT July 04, 2020. Chest radiograph February 24, 2021. FINDINGS: Left subclavian pacer/AICD is in place. There is no pneumothorax. No definite pleural effus ion. Interstitial thickening and bilateral opacities are noted. The opacities have progressed since p rior examination. Cardiomegaly is unchanged. Mediastinal contours are stable. IMPRESSION: 1. Progression of bilateral airspace opacities. This favors pneumonia however alveolar pulmonary carol a could appear similar. 2. Interstitial thickening suggestive of pulmonary edema. 3. Cardiomegaly. ACT 112: Negative or not required by law. Electronically signed by: Eyad Rosario M.D. 03/11/2021 9:55 AM
[2021-03-11] MEDS ORDERED: FUROSEMIDE 40 MG/4 ML VIAL IV STA ×2 (10:06→11:38)
[2021-03-11 10:09] LABS: Alanine Aminotransferase 19 U/L (7-52); Albumin Level 3.7 gm/dl (3.4-5.0); Alkaline Phosphatase 94 U/L (34-104); Anion Gap 9 (3-11); Aspartate Aminotransferase 17 U/L (13-39); BUN Creatinine Ratio 13.5 (10-20); Bilirubin,Total 0.8 mg/dl (0.2-1.0); Blood Urea Nitrogen 13 mg/dl (6-23); Calcium 8.5 mg/dl (8.5-10.1); Carbon Dioxide 22 mmol/L (21-32); Chloride 102 mmol/L (98-107); Est GFR (Non-African American) 95.7 ml/min; Globulin 3.6 gm/dl (2.5-4.0); Glucose 355 mg/dl (70-99(Fasting)); Lipase 22 U/L (11-82); Potassium 4.2 mmol/L (3.5-5.1); Sodium 133 mmol/L (136-145); Total Protein 7.3 gm/dl (6.0-8.3); Troponin I 0.04 ng/ml (0-0.04)
[2021-03-11] MEDS ORDERED: NovoLIN-R INSULIN PER UNIT CHARGE IV STA (10:36)
[2021-03-11] MEDS: NITROGLYCERIN 2% OINTMENT 30GM TUBE EXT SCH ×3 (10:37→22:28)
--- NOTE | 2021-03-11 10:47 | History & Physical Report ---
Date of Service March 11, 2021 Assessment & Plan (1) Acute dyspnea: Plan: -Requiring BiPAP, in the setting of tachycardia and tachypnea. Likely due to volume overload, pulmonary edema she had on chest x-ray. COVID test negative. Considered other causes such as pulmonary embolism, patient has a history of these and patient reports his Eliquis was stopped in November. B/l LE U/S was performed, DVT was not appreciated. Patient responded well to diuresis, HR down from 140s to 110s, he is breathing much more comfortably now. Patient will receive prophylactic dose of heparin. Will defer chest CTA for now. Pneumonia unlikely, patient does not have elevated white blood cell count or fever. No left shift on CBC. -Continue diuresis. Continue to monitor. -CBC and BMP in a.m. (2) Acute on chronic congestive heart failure: Plan: -Patient's weight is up 30 pounds since discharge on 02/26. Patient endorses orthopnea, says he cannot breathe well if he is not sitting up with head of bed at a 90 degree angle. Chest x-ray showed cardiomegaly and pulmonary edema. -Patient received 80 mg IV Lasix in ED. Will order 1 more dose of 40 mg IV Lasix for today. -On 40 mg torsemide twice daily at home. May require increased in Lasix dose tomorrow. -Continue to monitor patient response to diuresis. -Repeat BMP every 6 and tomorrow AM. (3) NICM (nonischemic cardiomyopathy): Plan: -Chronic.Volume state difficult to evaluate due to body habitus, chest x-ray showed cardiomegaly and pulmonary edema. -Patient received 80 mg IV Lasix in ED. Will order 1 more dose of 40 mg IV Lasix for this evening. -Patient is on 40 mg torsemide twice daily at home. May require increased in Lasix dose tomorrow. -Continue Imdur -Continue Metoprolol -Continue Entresto -Continue Spironolactone -Monitor urine output, weight and electrolytes daily. Low-sodium diet, 1.5 L fluid restriction. (4) Diabetes mellitus type II, uncontrolled: Plan: -Poorly controlled. Elevated blood sugar presently at 355. -Regular insulin 10u IV now. -Lantus 16 units by daily with sliding scale coverage. -Goal blood sugar 110 - 180. -CC diet. -A1c in AM. (5) Obstructive sleep apnea: Plan: Patient is noncompliant with CPAP. -Currently requiring BiPAP. -CPAP qHS. (6) Hypertension: Plan: -SBP initially elevated in 170 to 180s. -Patient received 80 mg IV Lasix in ED and blood pressure responded well, now 150s. Can consider nitro drip if pressure continues to increase despite Lasix. -Continue Imdur. -Continue Metoprolol. -Continue Entresto. (7) COPD (chronic obstructive pulmonary disease): Plan: -Continue Symbicort. -Nebs Q6 PRN. (8) Morbid obesity with BMI of 50.0-59.9, adult: Plan: -His obesity is increasing his mortality greatly. (9) Chronic anticoagulation: Plan: -Patient states his Eliquis was discontinued in November. (10) DVT prophylaxis: Plan: -SCDs ordered. -Heparin 7500 units. History of Present Illness Chief Complaint: hemoptysis Primary Care Provider: CM Hitchcock 44 YOM male with intellectual disabilities with past medical history morbid obesity, cellulitis, NICM with AICD, HFrEF, HTN, medical noncompliance, DMII, MARIELENA, and PE who presents today with hemoptysis. Patient is a poor historian. He was discharged on 02/26 after receiving treatment for HF exacerbation, pneumonia, and skin infection and reports ongoing hemoptysis since then. Seems to be a chronic complaint for patient. He is unable to quantify the amount of blood he is coughing up, or specify if it is jose red blood. He also reports orthopnea, unable to breathe comfortably unless at a 90 degree angle. He reported bilateral lower extremity edema but no pain in his calves. He is unable to elaborate on whether this orthopnea is new or chronic, ongoing. He denies fever/chills, chest pain, abdominal pain, nausea, vomiting, diarrhea, or recent illness. He has a history of medication noncompliance, however says he has been compliant with all medications since discharge. Patient is followed by [facility] cardiology, he states they DC'd his apixaban in November. In ED, patient is hypertensive, tachypneic, and tachycardic. He is diaphoretic. Blood sugar 355. He received 10 units IV insulin as well as 40 mg IV Lasix in ED. Nitro-Bid patch on chest. An additional dose of 40 mg IV Lasix was given which patient patient responded well. Allergies Allergy/AdvReac Type Severity Reaction Status Date / Time ceftriaxone Allergy Severe SHORTNESS Verified 03/11/21 10:49 OF BREATH lidocaine Allergy Severe SHORTNESS Verified 03/11/21 10:49 OF BREATH, diaphoretic, hives procaine Allergy Severe SHORTNESS Verified 03/11/21 10:49 OF BREATH, diaphoretic, hives amoxicillin Allergy Intermediate HIVES/FACIAL Verified 03/11/21 10:49 SWELLING clavulanic acid Allergy Intermediate HIVES/FACIAL Verified 03/11/21 10:49 SWELLING lisinopril Allergy Intermediate HIVES Verified 03/11/21 10:49 acetaminophen AdvReac Mild NAUSEA Verified 03/11/21 10:49 albuterol AdvReac Mild proair Verified 03/11/21 10:49 "trouble taking breaths" Fish Containing Products AdvReac Unknown Unknown Verified 03/13/21 08:31 Home Medications Medication Instructions Recorded Confirmed Type nitroglycerin 0.4 mg sublingual 0.4 mg SUBLINGUAL UD PRN 04/24/19 03/11/21 History tablet (Nitrostat) cholecalciferol (vitamin D3) 50 50 mcg PO BID 10/04/19 03/11/21 History mcg (2,000 unit) tablet (Vitamin D3) albuterol sulfate 90 mcg/actuation 1 inh INHALATION QID #8.5 g 12/09/20 03/11/21 Rx aerosol inhaler Symbicort 160 mcg-4.5 2 inh INHALATION BID #10.2 g NS 12/16/20 03/11/21 Rx mcg/actuation HFA aerosol inhaler (budesonide-formoterol) aspirin 81 mg tablet,delayed 81 mg PO DAILY #90 tab 12/16/20 03/11/21 Rx release (Aspirin Low Dose) atorvastatin 10 mg tablet 10 mg PO DAILY #90 tab 12/16/20 03/11/21 Rx albuterol sulfate 2.5 mg INHALATION Q6H #15 ml 02/21/21 03/11/21 Rx diphenhydramine 25 1 tab PO .Q HS PRN #14 tab 02/21/21 03/11/21 Rx mg-acetaminophen 500 mg tablet (Tylenol PM Extra Strength) doxycycline monohydrate 100 mg 100 mg PO BID #14 cap 02/21/21 03/11/21 Rx capsule dulaglutide 1.5 mg/0.5 mL 1.5 mg SUBCUT WK #2 ml 02/21/21 03/11/21 Rx subcutaneous pen injector (Trulicity) esomeprazole magnesium 20 mg 40 mg PO BID #60 cap 02/21/21 03/11/21 Rx capsule,delayed release (Nexium) metoprolol succinate 100 mg 100 mg PO BID #60 tab 02/21/21 03/11/21 Rx tablet,extended release 24 hr sacubitril 97 mg-valsartan 103 mg 1 tab PO BID #60 tab 02/21/21 03/11/21 Rx tablet (Entresto) spironolactone 25 mg tablet 75 mg PO QAM #90 tab 02/21/21 03/11/21 Rx (Aldactone) isosorbide mononitrate 30 mg 60 mg PO QAM 02/24/21 03/11/21 History tablet,extended release 24 hr torsemide 20 mg tablet 40 mg PO BID #60 tab 02/26/21 03/11/21 Rx Past Med/Surg History Medical History Bacteremia Chronic respiratory failure Dilatation of thoracic aorta Fatty liver Hearing loss of both ears Hx of local infection of skin and subcutaneous tissue Iliac aneurysm Lung nodule NICM (nonischemic cardiomyopathy) Pt admitted for elective ICD. Underwent procedure without any complications monitored over night and discharged home. 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 Heart disease Myocardial infarction Mother , age 67 of a ruptured neck vessel Sudden Other Depression Lung disease No pertinent family history Denies family history of Ovarian cancer Prostate cancer Breast cancer Colorectal cancer Social History Smoking Status: Former smoker Tobacco Type: Cigarettes Age Started Using Tobacco: 14; Age Quit Using Tobacco: 18; Cigarettes Per Day: 40-50; Second Hand Exposure: No; Hx Alcohol Use: No Hx Substance Use: No Preferred Language: Macedonian Communication Ability: Effective Visual Impairment: No Limitations Hearing Ability: Normal Vertical Roll Operator Required: No Beliefs That Will Affect Care: None marital status: Current Living Situation: Spouse current occupational status: unemployed How many Children do You have: 0 Other Information That Helps Us Care for You: No Feels Safe at Home: Yes Safety Concerns: Feels Safe At This Time Childhood Exposure to Second-Hand Smoke: Yes Dental Care, Regularly: Yes Physical Activity Frequency: Does not Exercise Assistive Devices: Oxygen - Continuous, Walker and Wheelchair Review of Systems Review of Systems: Constitutional: No fever, sweats or chills Eyes: No diplopia, no worsening or blurred vision ENT: normal hearing, no trouble swallowing Respiratory: Reports cough with hemoptysis, shortness of breath at rest, positional dyspnea. Cardiovascular: No chest pain, tightness or palpitations Abdomen: No pain, nausea, vomiting, diarrhea or constipation Musculoskeletal: Reports neck and low back pain. No calf pain, swelling Neurologic: No weakness, numbness/tingling, or balance problems Psychiatric: No anxiety or depression Skin: No rash or itch Physical Exam Physical Exam: General: awake, alert, slightly diaphoretic on BIPAP Head: Normocephalic, atraumatic ENT: PERRL, EOMI, no pharyngeal exudate, mucous membranes moist Chest: Tachypneic, on BIPAP, no adventitious breath sounds Cardiac: Tachycardic, regular rhythm, no murmur, no JVD, normal peripheral pulses, good capillary refill Abdominal: NABS x 4 quadrants, soft, nontender to palpation, no rebound, guarding or tenderness Extremities: Bilateral lower extremity, calfs nontender to palpation Psych: Normal mood and affect Neuro: AAO x 3, strength intact bilaterally and rated 5/5, no motor deficits, speech is clear, no peripheral sensory deficits Skin: Abdomen appears edematous and has erythema consistent with injection site reactions. Results & Data Results & Data ([facility]) Vital Signs (Past 12 Hours) Vital Signs Temp Pulse Resp BP Pulse Ox 03/11/21 10:35 120 H 28 H 95 03/11/21 10:30 127 H 24 90 03/11/21 10:20 128 H 21 91 03/11/21 10:10 124 H 17 94 03/11/21 10:00 122 H 31 H 95 03/11/21 09:50 129 H 28 H 88 L 03/11/21 09:40 127 H 17 92 03/11/21 09:30 120 H 32 H 97 03/11/21 09:20 118 H 19 96 03/11/21 09:15 120 H 16 95 03/11/21 08:59 36.9 C 119 H 20 162/135 H 96 Laboratory Results Abnormal lab results 03/11/21 03/11/21 03/11/21 Range/Units 09:32 09:32 09:53 RDW Std Deviation 49.5 H (36.4-46.3) fL RDW Coeff of Zoltan 16.6 H (11.5-14.5) % [place] # (Auto) 0.63 H (0.11-0.59) K/uL Immature Gran # (Auto) 0.03 H (0.00-0.02) K/uL Sodium 133 L (136-145) mmol/L Glucose 355 H* (70-99(Fasting)) mg/dl POC Glucose (70-99) mg/dl B-Natriuretic Peptide 701 H (0-100) pg/ml 03/11/21 03/11/21 Range/Units 10:42 11:33 RDW Std Deviation (36.4-46.3) fL RDW Coeff of Zoltan (11.5-14.5) % [place] # (Auto) (0.11-0.59) K/uL Immature Gran # (Auto) (0.00-0.02) K/uL Sodium (136-145) mmol/L Glucose (70-99(Fasting)) mg/dl POC Glucose 320 H* 337 H* (70-99) mg/dl B-Natriuretic Peptide (0-100) pg/ml Diagnostic Findings Chest X-Ray 03/11/21 09:34 XR chest 1V portable CLINICAL HISTORY: Atypical chest pain. COMPARISON STUDY: Chest CT July 04, 2020. Chest radiograph February 24, 2021. FINDINGS: Left subclavian pacer/AICD is in place. There is no pneumothorax. No definite pleural effusion. Interstitial thickening and bilateral opacities are noted. The opacities have progressed since prior examination. Cardiomegaly is unchanged. Mediastinal contours are stable. IMPRESSION: 1. Progression of bilateral airspace opacities. This favors pneumonia however alveolar pulmonary edema could appear similar. 2. Interstitial thickening suggestive of pulmonary edema. 3. Cardiomegaly. Venous Doppler Study 03/11/21 11:35 BILATERAL LOWER EXTREMITY VENOUS DOPPLER HISTORY: Acute pain and swelling of the lower legs evaluate for DVT COMPARISON STUDY: Doppler study 11/02/2019 FINDINGS: Limited exam secondary to patient body habitus and positioning. The bilateral common femoral and saphenous veins are not diagnostically visualized. There is normal compressibility, flow, and augmentation within the bilateral lower extremity deep venous systems. IMPRESSION: Limited exam. No DVT within the right or left lower extremity. Medications Administered Nitroglycerin (Nitroglycerin 2% Ointment 30gm Tube) 2 inch EXT Q6H SUKHWINDER Stop: 04/10/21 10:14 Last Admin: 03/11/21 10:37 Dose: 2 inch Documented by: [id number] ECG Additional Comments: Sinus tachycardia Possible Left atrial enlargement Left axis deviation Poor R wave progression, consider anterior NM vs. lead placement vs. LVH Abnormal ECG When compared with ECG of 26-FEB-2021 04:08, T wave inversions in the precordial leads has resolved Code Status & VTE Plan Code Status Full Code Supervising Physician Co-Signing Physician Notes Patient seen and examined at bedside. Obtained a physical examination and history during face to face encounter with patient, Discussed plan of care with JUAN FRANCISCO Hoyt. I reviewed above note and agree with it. Patient is admitted with CHF exacerbation. will aggressively treat with IV diuretics PG Care Time/CCT Total # of Minutes Spent Total Time Spent with Patient: Total time spent is greater than 50% in coordination of care (as documented) at patient's floor/unit and/or counseling patient: Coding Level of Care Code 27004 Initial Inpt Care Lvl 3 Diagnoses Acute dyspnea R06.00 Diabetes mellitus type II, uncontrolled E11.65 Glycemic state: with hyperglycemia Chronic anticoagulation Z79.01 Morbid obesity with BMI of 50.0-59.9, adult E66.01; Z68.43 Acute on chronic congestive heart failure I50.43 Heart failure type: combined systolic and diastolic Hypertension I10 Hypertension type: unspecified NICM (nonischemic cardiomyopathy) I42.8 Obstructive sleep apnea G47.33 COPD (chronic obstructive pulmonary disease) J44.9 COPD type: unspecified COPD DVT prophylaxis Z29.9 (1) Acute on chronic congestive heart failure Heart failure type: combined systolic and diastolic Qualified Code(s): I50.43 - Acute on chronic combined systolic (congestive) and diastolic (congestive) heart failure (2) Diabetes mellitus type II, uncontrolled Glycemic state: with hyperglycemia Qualified Code(s): E11.65 - Type 2 diabetes mellitus with hyperglycemia (3) COPD (chronic obstructive pulmonary disease) COPD type: unspecified COPD Qualified Code(s): J44.9 - Chronic obstructive pulmonary disease, unspecified (4) Hypertension Hypertension type: unspecified Qualified Code(s): I10 - Essential (primary) hypertension
[2021-03-11] MEDS ORDERED: RAPID SEQUENCE INDUCTION BAG ONE (11:20)
--- NOTE | 2021-03-11 12:34 | Ultrasound Report ---
BILATERAL LOWER EXTREMITY VENOUS DOPPLER HISTORY: Acute pain and swelling of the lower legs evaluate for DVT COMPARISON STUDY: Doppler study 11/02/2019 FINDINGS: Limited exam secondary to patient body habitus and positioning. The bilateral common femora l and saphenous veins are not diagnostically visualized. There is normal compressibility, flow, and a ugmentation within the bilateral lower extremity deep venous systems. IMPRESSION: Limited exam. No DVT within the right or left lower extremity. ACT 112: Negative or not required by law. Electronically signed by: Sony Irby M.D. 03/11/2021 12:33 PM
[2021-03-11 12:35] LABS: Base Excess VBG -1.3 mEq/L; pH VBG 7.37 (7.36-7.41)
--- NOTE | 2021-03-11 14:08 | Electrocardiogram Report ---
Test Reason : Blood Pressure : / mmHG Vent. Rate : 119 BPM Atrial Rate : 119 BPM P-R Int : 154 ms QRS Dur : 112 ms QT Int : 348 ms P-R-T Axes : 028 -39 088 degrees QTc Int : 489 ms Sinus tachycardia Possible Left atrial enlargement Left axis deviation Poor R wave progression, consider anterior HI vs. lead placement vs. LVH Abnormal ECG When compared with ECG of 26-FEB-2021 04:08, T wave inversions in the precordial leads has resolved Confirmed by Bertrand Polanco ([id number]) on 03/11/2021 2:07:34 PM Referred By: REFERRED SELF Confirmed By:Severiano Polanco
[2021-03-11] MEDS ORDERED: FUROSEMIDE 40 MG/4 ML VIAL IV ONE (18:00)
[2021-03-11] MEDS ORDERED: DC ALL PREVIOUSLY ORDERED DIABETES MEDS ONE (19:07)
[2021-03-11] MEDS ORDERED: ONDANSETRON INJ 2 MG/ML 2 ML VIAL IV PRN (19:07)
[2021-03-11] MEDS ORDERED: DEXTROSE 50% 50 ML SYRINGE IV PRN (19:07)
[2021-03-11] MEDS ORDERED: NON-FORMULARY MEDICATION (Diphenhydramine-Acetaminophen [Tylenol Pm Extra Strength] 25-500 PO PRN (19:07)
[2021-03-11] MEDS ORDERED: NON-FORMULARY MEDICATION (Dulaglutide [Trulicity] 1.5 mg/0.5 mL pen injector) SQ SCH (19:07)
[2021-03-11] MEDS ORDERED: GLUCOSE 40% GEL 15 GM TUBE PO PRN (19:07)
[2021-03-11] MEDS ORDERED: CARBOHYDRATES FOR HYPOGLYCEMIA PO PRN (19:07)
[2021-03-11] MEDS ORDERED: POLYETHYLENE (MIRALAX) 17 GM PACK PO PRN (19:07)
[2021-03-11] MEDS ORDERED: NITROGLYCERIN SL 0.4 MG/TAB TAB SL PRN (19:07)
[2021-03-11] MEDS ORDERED: GLUCAGON FOR INJ 1 MG VIAL SQ PRN (19:07)
[2021-03-11] MEDS ORDERED: GLUCOSE 10 TABS/TUBE PO PRN (19:07)
[2021-03-11 19:08] LABS: Anion Gap 7 (3-11); Blood Urea Nitrogen 11 mg/dl (6-23); Calcium 8.4 mg/dl (8.5-10.1); Carbon Dioxide 28 mmol/L (21-32); Chloride 102 mmol/L (98-107); Est GFR (African American) 105.6 ml/min; Est GFR (Non-African American) 91.1 ml/min; Glucose 252 mg/dl (70-99(Fasting)); Potassium 4.1 mmol/L (3.5-5.1); Sodium 137 mmol/L (136-145)
[2021-03-11] MEDS ORDERED: ACETAMINOPHEN 500 MG TAB PO PRN (20:04)
[2021-03-11] MEDS ORDERED: diphenhydrAMINE Capsule 25 MG CAP PO PRN (20:04)
[2021-03-11] MEDS: ALBUTEROL 0.083% NEBU SOLN 3 ML VIAL INH SCH (20:54)
[2021-03-11] MEDS: ALBUTEROL HFA 8 GM INHALER INH SCH ×2 (20:55→22:31)
[2021-03-11] MEDS ORDERED: NON-FORMULARY MEDICATION (Doxycycline Monohydrate 100 mg capsule) PO SCH (21:00)
[2021-03-11] MEDS: ATORVASTATIN 10 MG TAB PO SCH (21:55)
[2021-03-11] MEDS: CHOLECALCIFEROL 1,000 UNITS 25 MCG TAB PO SCH (21:55)
[2021-03-11] MEDS: ASPIRIN 81 MG ECTAB PO SCH (21:55)
[2021-03-11] MEDS: INSULIN ASPART PER UNIT SC SCH (22:16)
[2021-03-11] MEDS: PANTOprazole 40 MG TAB PO SCH (22:18)
[2021-03-11] MEDS: INSULIN GLARGINE SOLOSTAR 100 UNITS/ML 3 ML PEN SC SCH (22:18)
[2021-03-11] MEDS: METOPROLOL SUCC 50MG EXT REL TAB PO SCH (22:18)
[2021-03-11] MEDS: VALSARTAN/SACUBITRIL 103/97MG TAB PO SCH (22:18)
[2021-03-11] MEDS: HEPARIN SOD 5,000 UNIT/0.5 ML VIAL SQ SCH ×2 (22:18→22:28)
[2021-03-12 00:22] LABS: Anion Gap 7 (3-11); Blood Urea Nitrogen 12 mg/dl (6-23); Calcium 8.3 mg/dl (8.5-10.1); Carbon Dioxide 27 mmol/L (21-32); Chloride 101 mmol/L (98-107); Est GFR (African American) 116.8 ml/min; Est GFR (Non-African American) 100.8 ml/min; Glucose 278 mg/dl (70-99(Fasting)); Potassium 3.8 mmol/L (3.5-5.1); Sodium 135 mmol/L (136-145)
[2021-03-12] MEDS: ALBUTEROL 0.083% NEBU SOLN 3 ML VIAL INH SCH ×5 (00:28→23:58)
[2021-03-12] MEDS: NITROGLYCERIN 2% OINTMENT 30GM TUBE EXT SCH ×2 (05:03→11:26)
[2021-03-12] MEDS: HEPARIN SOD 5,000 UNIT/0.5 ML VIAL SQ SCH ×3 (06:22→21:06)
[2021-03-12 06:27] LABS: Basophils # (auto) 0.01 K/uL (0-0.2); Basophils % (auto) 0.1 %; Eosinophils % (auto) 1.2 %; Hematocrit (blood only) 41.9 % (42-52); Hemoglobin 13.7 g/dL (14.0-18.0); Immature Granulocytes # (auto) 0.02 K/uL (0.00-0.02); Immature Granulocytes % (auto) 0.2 %; Lymphocytes # (auto) 1.82 K/uL (1.2-3.4); Lymphocytes % (auto) 21.8 %; Mean Corpuscular Hemoglobin 26.8 pg (25-34); Mean Corpuscular Hgb Conc 32.7 g/dL (32-36); Mean Platelet Volume 10.3 fL (7.4-10.4); Monocytes # (auto) 0.65 K/uL (0.11-0.59); Monocytes % (auto) 7.8 %; Neutrophils # (auto) 5.76 K/uL (1.4-6.5); Neutrophils % (auto) 68.9 %; Platelet Count 160 K/uL (130-400); RDW Coefficient of Variation 16.3 % (11.5-14.5); RDW Standard Deviation 49.3 fL (36.4-46.3); Red Blood Count 5.11 M/uL (4.7-6.1); White Blood Count 8.36 K/uL (4.8-10.8)
[2021-03-12 06:54] LABS: BUN Creatinine Ratio 13.8 (10-20); Calcium 7.9 mg/dl (8.5-10.1); Creatinine Clr Calc Pharmacy 175.7 ml/min; Est GFR (African American) 125.9 ml/min; Est GFR (Non-African American) 108.6 ml/min; Potassium 3.8 mmol/L (3.5-5.1)
[2021-03-12 07:42] LABS: Estimated Average Glucose 312 mg/dl; Hemoglobin A1C 12.5 % (4.5-5.6)
[2021-03-12] MEDS: INSULIN ASPART PER UNIT SC SCH ×5 (07:58→21:06)
[2021-03-12] MEDS: CHOLECALCIFEROL 1,000 UNITS 25 MCG TAB PO SCH ×2 (08:14→21:05)
[2021-03-12] MEDS: ATORVASTATIN 10 MG TAB PO SCH (08:14)
[2021-03-12] MEDS: ASPIRIN 81 MG ECTAB PO SCH (08:14)
[2021-03-12] MEDS: FLUTICASONE/VILANTEROL 100/25MCG 14 PUFFS/INHALER INH SCH (08:15)
[2021-03-12] MEDS: ISOSORBIDE MONO EXTENDED REL 60 MG TABCR PO SCH (08:15)
[2021-03-12] MEDS: PANTOprazole 40 MG TAB PO SCH ×2 (08:16→21:05)
[2021-03-12] MEDS: SPIRONOLACTONE 25 MG TAB PO SCH ×2 (08:16→17:46)
[2021-03-12] MEDS: METOPROLOL SUCC 50MG EXT REL TAB PO SCH ×2 (08:16→21:05)
[2021-03-12] MEDS: VALSARTAN/SACUBITRIL 103/97MG TAB PO SCH ×2 (08:17→21:05)
[2021-03-12] MEDS ORDERED: PHARMACY GLYCEMIC MGMT CONSULT PRN (08:40)
[2021-03-12] MEDS: INSULIN GLARGINE SOLOSTAR 100 UNITS/ML 3 ML PEN SC SCH (08:57)
[2021-03-12] MEDS: FUROSEMIDE 40 MG/4 ML VIAL IV SCH ×2 (08:58→21:05)
[2021-03-12] MEDS ORDERED: TORSEMIDE 20 MG TAB PO SCH (09:00)
[2021-03-12] MEDS ORDERED: SPIRONOLACTONE 25 MG TAB PO SCH (09:00)
[2021-03-12 11:15] LABS: D Dimer 750 ug/L FEU (0-500)
[2021-03-12] MEDS ORDERED: INSULIN HUMAN REGULAR PER UNIT 8 UNITS in SYRINGE 0 ML IV STA (12:10)
[2021-03-12] MEDS ORDERED: OPTIRAY 320 125ml IV ONE (12:19)
--- NOTE | 2021-03-12 12:24 | Hospitalist Progress Note ---
Date of Service March 12, 2021 Assessment & Plan (1) Acute dyspnea: Plan: Dyspnea with acute hypoxemic respiratory failure Requiring BiPAP on admission with tachycardia and tachypnea CXR on admission: Obvious pulmonary edema, BNP slightly elevated Patient with brisk diuresis following Lasix in ER and continued during admission Patient without clinical improvement in breathing, reports actually feels some slight worsening of breathing requiring oxygen with mask/high flow overnight Given history of PE, continued bloody sputum production, persistent tachycardia, and cessation of anticoagulation this past November D-dimer obtained which was elevated, CTA ordered. DDx includes continued acute on chronic CHF and PE Continue diuresis, creatinine stable (2) Acute on chronic congestive heart failure: Plan: 30 pound weight increase since 02/26. Patient with orthopnea, chest x-ray with cardiomegaly and pulmonary edema Patient on torsemide 40 mg twice daily at home, Lasix continued at this time w/ torsemide held CTA pending as above Continue BMP daily (3) NICM (nonischemic cardiomyopathy): Plan: -Chronic.Volume state difficult to evaluate due to body habitus, chest x-ray showed cardiomegaly and pulmonary edema. -Received IV Lasix on admission, IV Lasix twice daily continued. May convert to 40 mg home torsemide when volume status improved -Continue Imdur -Continue Metoprolol -Continue Entresto -Continue Spironolactone -Monitor urine output, weight and electrolytes daily. Low-sodium diet, 1.5 L fluid restriction. (4) Diabetes mellitus type II, uncontrolled: Plan: -Poorly controlled. BSG remains elevated, 294 fasting/postprandial today -Additional dose of 10 units IV insulin given -Lantus 16 units by daily with sliding scale coverage, sliding scale tightened 03/12 -Goal blood sugar 110 - 180. -CC diet. -A1c 12.5% (5) Obstructive sleep apnea: Plan: Patient is noncompliant with CPAP. -Currently requiring BiPAP. -CPAP qHS. (6) Hypertension: Plan: -SBP initially elevated in 170 to 180s. -Patient normotensive 03/12 -Continue Imdur. -Continue Metoprolol. -Continue Entresto. (7) COPD (chronic obstructive pulmonary disease): Plan: -Continue Symbicort. -Nebs Q6 PRN. (8) Morbid obesity with BMI of 50.0-59.9, adult: Plan: -His obesity is increasing his mortality greatly. (9) Chronic anticoagulation: Plan: -Patient states his Eliquis was discontinued in November. (10) DVT prophylaxis: Plan: -SCDs ordered. -Heparin 7500 units. Admission and Anticipated Discharge Date Admission Date: March 11, 2021 Subjective Seen at bedside this morning. Continues to have intermittent bloody sputum production. Short of breath overnight, per pt minimally to not improved with diuresis despite >2.5L output brisk with lasix and addition >1L output this morning. Continues to have shortness of breath worsened with laying flat. No chest pain/chest pressure. Endorses some chronic neck stiffness and fullness in his neck. Endorses abdominal cysts, denies acute rash/cellulitis/pain. -N/-V/-D/-C. Review of Systems Review of Systems: All systems reviewed & are unremarkable except as noted in Subjective Physical Exam Physical Exam: General: A&Ox3. NAD. Cooperative. HEENT: Atraumatic, normocephalic. PERLAA. Vision and hearing grossly intact. Pulm: CTAB A&P. Coarse basilar breath sounds bilaterally, no wheezes. Symmetrical chest rise. No increased work of breathing. No respiratory distress. Cardiac: Tachycardic, no murmurs/rubs/gallops. Radial pulses intact and symmetrical. Abdominal: Obese, diffuse scarring from prior cysts without current active erythema/warmth. BS present. Ext: Grossly intact, moving all extremities equally, sensation to soft touch intact in hands and feet bilaterally. Results & Data Results & Data ([facility]) Vital Signs (Past 12 Hours) Vital Signs Temp Pulse Pulse Resp BP Pulse Ox 03/12/21 11:49 36.7 C 91 H 20 109/61 96 03/12/21 08:05 36.5 C 85 18 136/75 96 03/12/21 07:52 92 H 03/12/21 07:17 90 20 93 03/12/21 03:00 36.4 C L 90 81 26 H 155/110 H 99 03/12/21 00:47 77 25 H 163/112 H 97 03/12/21 00:28 83 78 23 96 PG Care Time/CCT Total # of Minutes Spent Total Time Spent with Patient: Total time spent is greater than 50% in coordination of care (as documented) at patient's floor/unit and/or counseling patient: Coding Level of Care Code 05842 Subseq Hosp Care Lvl 3 Diagnoses Acute dyspnea R06.00 Acute on chronic congestive heart failure I50.43 Heart failure type: combined systolic and diastolic NICM (nonischemic cardiomyopathy) I42.8 Diabetes mellitus type II, uncontrolled E11.65 Glycemic state: with hyperglycemia Obstructive sleep apnea G47.33 Hypertension I10 Hypertension type: unspecified COPD (chronic obstructive pulmonary disease) J44.9 COPD type: unspecified COPD Morbid obesity with BMI of 50.0-59.9, adult E66.01; Z68.43 Chronic anticoagulation Z79.01 DVT prophylaxis Z29.9 (1) Acute on chronic congestive heart failure Heart failure type: combined systolic and diastolic Qualified Code(s): I50.43 - Acute on chronic combined systolic (congestive) and diastolic (congestive) heart failure (2) Diabetes mellitus type II, uncontrolled Glycemic state: with hyperglycemia Qualified Code(s): E11.65 - Type 2 diabetes mellitus with hyperglycemia (3) Hypertension Hypertension type: unspecified Qualified Code(s): I10 - Essential (primary) hypertension (4) COPD (chronic obstructive pulmonary disease) COPD type: unspecified COPD Qualified Code(s): J44.9 - Chronic obstructive pulmonary disease, unspecified
[2021-03-12] MEDS ORDERED: INSULIN GLARGINE SOLOSTAR 100 UNITS/ML 3 ML PEN SC ONE (12:45)
--- NOTE | 2021-03-12 12:47 | CT Scan Report ---
CT angio chest PE protocol CT DOSE: 1087.58 mGy.cm HISTORY: 45 years-old Male with persistent hypoxia, hx PE, DD. Acute hypoxia with elevated d-dimer TECHNIQUE: Multiple CTA images of the chest were obtained after the intravenous administration of 120 ml Optiray. Coronal and sagittal MIPS were obtained from the axial data set and were submitted for review. All measurements were obtained according to NASCET criteria. A dose lowering technique was u tilized adhering to the principles of ALARA. COMPARISON: CTA chest 07/04/2020 FINDINGS: CTA: Moderate cardiomegaly with left subclavian pacer. No pericardial effusion. Unchanged dilation of the ascending thoracic aorta, 4.4 cm. No dissection. The segmental and subsegmental pulmonary arterial br anches are not well opacified which limits the study. No filling defects identified to suggest pulmon mirza thromboembolic disease. CT CHEST: No thyroid nodule or adenopathy. No pneumothorax or pleural effusion. Patchy bilateral multilobar dis tribution of groundglass opacities with mild irregular consolidative densities. The central airways a re patent. No acute process of the imaged upper abdomen. Gynecomastia. Unremarkable soft tissues. Degenerative c hanges of the shoulders and spine. IMPRESSION: 1. Cardiomegaly with unchanged dilation of the ascending thoracic aorta measuring 4.4 cm. 2. No pulmonary emboli. 3. Patchy multilobar bilateral groundglass densities are suggestive of viral pneumonia. ACT 112: Negative or not required by law. The above report was generated using voice recognition software. It may contain grammatical, syntax o r spelling errors. Electronically signed by: Sony Irby M.D. 03/12/2021 12:45 PM
--- NOTE | 2021-03-12 13:34 | Cardiology Progress Note ---
Date of Service March 12, 2021 Assessment & Plan (1) Acute on chronic heart failure with reduced ejection fraction and diastolic dysfunction: Plan: Patient with longstanding history of heart failure with reduced ejection fraction due to a nonischemic cardiomyopathy. He has a history of a single-chamber Medtronic AICD for primary prevention of sudden cardiac , most recently interrogated earlier this month with stable findings at that time. Patient's treatment complicated by nonadherence to the treatment program, and poor insight into his overall health condition. When I had previously seen him in the hospital, he had been evicted, and was concerned with regards to homelessness. He states that he has been in a stable living environment since October,. With regards to the blood-tinged sputum, he had been placed on oral anticoagulation after diagnosis of pulmonary embolism at [facility] May,. The adherence of how long he was actually on anticoagulation with Eliquis is difficult to ascertain, but this was definitely discontinued earlier this month, and his aspirin had also been held transiently held. When I discuss his blood-tinged sputum with him which has been a complaint of multiple past encounters, he describes that he gets better after he has been in the hospital, and then gets worse again. As noted in previous progress notes, this may very well be related to coughing and high filling pressures from his cardiomyopathy in the setting of severe systemic hypertension and medical nonadherence, and for now, would recommend that we just continue his chronic medication therapy for CHF and HTN. I agree with holding his oral torsemide for now, favoring IV diuretic therapy. Blood pressure volume status already appear to be improved compared to presentation yesterday, however he still requires significant oxygen supplementation, 6 L nasal cannula. I have discontinued his topical nitroglycerin, and fever ongoing therapy as prescribed with isosorbide mononitrate extended release, metoprolol succinate, Entresto, atorvastatin. Aspirin has been reinitiated. Agree with subcutaneous heparin for DVT prophylaxis. Admission and Anticipated Discharge Date Admission Date: March 11, 2021 Home Huff is a 45 year old male seen in cardiology consultation per the request of Melissa Hoyt PA-C for the evaluation of acute on chronic heart failure with reduced ejection fraction. Patient well-known to our service. I have seen him on multiple hospital stays in the past. He had most recently been seen as an inpatient by Dr. Hernandez of our practice on 02/25/2021. Patient presents with worsening shortness of breath, describes recurrent blood in sputum. Upon arrival yesterday he was hypertensive, with blood pressure measured 03/11/2021 1113 in the emergency room of 229/197, and has trended toward improvement overnight with most recent measurement at 11:49 AM of 109/61. At present, patient states he is feeling better. He does have a bedside container and demonstrates blood-tinged sputum which he had complained about earlier this month, and on multiple previous hospital stays. Review of Systems Review of Systems: All systems reviewed & are unremarkable except as noted in HPI & below Physical Exam Physical Exam: Temp Pulse Resp BP Pulse Ox 36.7 C 80 20 109/61 97 03/12/21 11:49 03/12/21 13:16 03/12/21 13:16 03/12/21 11:49 03/12/21 13:16 Constitutional: + morbidly obese Respiratory: Mildly decreased breath sounds the bases Cardiovascular: Rate/Rhythm: regular rate Heart Sounds: no murmur Extremities: + edema (1+ lower extremity edema, pedal edema) Skin: Multiple ulcerations on the anterior abdominal wall and lower legs of varying level of healing Neurologic: Conversant, follows commands, no focal deficits Results & Data ([facility]) Vital Signs (Past 12 Hours) Vital Signs Temp Pulse Pulse Resp BP Pulse Ox 03/12/21 13:16 80 20 97 03/12/21 11:49 36.7 C 91 H 20 109/61 96 03/12/21 08:05 36.5 C 85 18 136/75 96 03/12/21 07:52 92 H 03/12/21 07:17 90 20 93 03/12/21 03:00 36.4 C L 90 81 26 H 155/[address] angiogram performed on presentation revealed enlargement of the cardiac silhouette per radiology report, maximum dimension ascending aorta 4.4 cm (stable) no pulmonary bullae, patchy multilobar groundglass densities suggestive of pneumonia no pulmonary nodules. Lower extremity venous duplex, negative for DVT. Chest x-ray reviewed independently revealed jose pulmonary edema per my personal impression EKG performed 03/11/2021, reviewed independently: Sinus tachycardia 119 bpm, no new repolarization abnormalities Summary of transthoracic echocardiogram report, 11/01/2019: Moderate dilatation of the left ventricular chamber, severe left ventricular systolic dysfunction, LVEF 25 to 30%, grade 1 diastolic dysfunction technically limited study due to patient characteristics, poor acoustic windows
--- NOTE | 2021-03-12 14:06 | Pharmacy Report ---
Pharmacy Glycemic Short Note 2 - Date of Service March 12, 2021 - Glycemic Short BSG Results (Last 24 hours): 03/11/21 03/11/21 03/11/21 18:34 22:12 23:52 Glucose 252 H 278 H POC Glucose 274 H 03/12/21 03/12/21 03/12/21 06:11 07:24 11:29 Glucose 294 H POC Glucose 245 H 277 H OUTPATIENT ANTIDIABETIC REGIMEN: * trulicity * 12.5% A1c ASSESSMENT: * Patient admitted with hemoptysis, dyspnea on admission, type 2 diabetic poorly controlled * BSG 277 mg/dL at time of glycemic consult, plan to tighten to stress of 2/3 with novolog. Likely patient basal deficient, will give another 10 units of Lantus for now and have scale on for HS time PLAN FOR INPATIENT GLYCEMIC CONTROL: * Hold outpatient oral diabetes medications * Basal insulin * Lantus 16 +10 units this AM * Lantus 0-15 units for PM dosing * Bolus insulin * NovoLog per scale ACHS or Q6hrs while NPO * Goal Range: Low 110 mg/dL - High 140 mg/dL * Correction Factor: 20 mg/dL/unit * Nutritional / Prandial insulin per carb ratio of 1 unit per 6 grams CHO consumed PLAN FOR DISCHARGE: * tbd
[2021-03-12 18:08] LABS: Adenovirus PCR Not Detected (NotDetected); Bordetella parapertussis PCR Not Detected (NotDetected); Bordetella pertussis PCR Not Detected (NotDetected); Chlamydia pneumoniae PCR Not Detected (NotDetected); Coronavirus 229E PCR Not Detected (NotDetected); Coronavirus CoV-2 (COVID19)PCR Not Detected (NotDetected); Coronavirus HKU1 PCR Not Detected (NotDetected); Coronavirus NL63 PCR Not Detected (NotDetected); Coronavirus OC43PCR Not Detected (NotDetected); Human Metapneumovirus PCR Not Detected (NotDetected); Influenza A PCR Not Detected (NotDetected); Influenza B PCR Not Detected (NotDetected); Mycoplasma pneumoniae PCR Not Detected (NotDetected); Parainfluenza Virus 1 PCR Not Detected (NotDetected); Parainfluenza Virus 2 PCR Not Detected (NotDetected); Parainfluenza Virus 3 PCR Not Detected (NotDetected); Parainfluenza Virus 4 PCR Not Detected (NotDetected); Respiratory Syncytial VirusPCR Not Detected (NotDetected); Rhinovirus/Enterovirus PCR Not Detected (NotDetected)
[2021-03-12] MEDS ORDERED: DICLOFENAC SOD 1% GEL 100 GM TUBE EXT PRN (18:55)
[2021-03-12] MEDS ORDERED: INSULIN GLARGINE SOLOSTAR 100 UNITS/ML 3 ML PEN SC SCH (21:00)
[2021-03-13] MEDS: HEPARIN SOD 5,000 UNIT/0.5 ML VIAL SQ SCH (05:54)
[2021-03-13 06:23] LABS: Basophils # (auto) 0.02 K/uL (0-0.2); Basophils % (auto) 0.2 %; Eosinophils # (auto) 0.15 K/uL (0-0.5); Eosinophils % (auto) 1.7 %; Hematocrit (blood only) 43.6 % (42-52); Immature Granulocytes # (auto) 0.03 K/uL (0.00-0.02); Immature Granulocytes % (auto) 0.3 %; Lymphocytes # (auto) 2.43 K/uL (1.2-3.4); Lymphocytes % (auto) 28.2 %; Mean Corpuscular Hemoglobin 26.6 pg (25-34); Mean Corpuscular Hgb Conc 32.1 g/dL (32-36); Mean Corpuscular Volume 82.7 fL (80-100); Monocytes # (auto) 0.69 K/uL (0.11-0.59); Neutrophils % (auto) 61.6 %; Platelet Count 178 K/uL (130-400); RDW Coefficient of Variation 16.6 % (11.5-14.5); RDW Standard Deviation 50.1 fL (36.4-46.3); Red Blood Count 5.27 M/uL (4.7-6.1); White Blood Count 8.62 K/uL (4.8-10.8)
[2021-03-13 06:37] LABS: BUN Creatinine Ratio 15.7 (10-20); Calcium 8.4 mg/dl (8.5-10.1); Creatinine Clr Calc Pharmacy 130.3 ml/min; Est GFR (African American) 96.2 ml/min; Potassium 3.4 mmol/L (3.5-5.1)
[2021-03-13] MEDS: ALBUTEROL 0.083% NEBU SOLN 3 ML VIAL INH SCH ×3 (07:15→19:41)
[2021-03-13] MEDS ORDERED: INSULIN GLARGINE SOLOSTAR 100 UNITS/ML 3 ML PEN SC SCH (09:00)
[2021-03-13] MEDS: INSULIN ASPART PER UNIT SC SCH ×4 (09:04→20:22)
[2021-03-13] MEDS: ASPIRIN 81 MG ECTAB PO SCH (09:28)
[2021-03-13] MEDS: ATORVASTATIN 10 MG TAB PO SCH (09:28)
[2021-03-13] MEDS: FLUTICASONE/VILANTEROL 100/25MCG 14 PUFFS/INHALER INH SCH (09:29)
[2021-03-13] MEDS ORDERED: TROLAMINE SALICYLATE 10% CRM 255 APPLN/85 GM TUBE EXT PRN (09:29)
[2021-03-13] MEDS: FUROSEMIDE 40 MG/4 ML VIAL IV SCH ×2 (09:29→20:29)
[2021-03-13] MEDS: CHOLECALCIFEROL 1,000 UNITS 25 MCG TAB PO SCH ×2 (09:29→20:29)
[2021-03-13] MEDS: METOPROLOL SUCC 50MG EXT REL TAB PO SCH ×2 (09:30→20:30)
[2021-03-13] MEDS: ISOSORBIDE MONO EXTENDED REL 60 MG TABCR PO SCH (09:30)
[2021-03-13] MEDS: SPIRONOLACTONE 25 MG TAB PO SCH ×2 (09:31→16:51)
[2021-03-13] MEDS: PANTOprazole 40 MG TAB PO SCH ×2 (09:31→20:29)
[2021-03-13] MEDS: VALSARTAN/SACUBITRIL 103/97MG TAB PO SCH ×2 (09:31→20:29)
[2021-03-13] MEDS: POTASSIUM CHLORIDE CRTAB 20 MEQ TABCR PO SCH ×3 (09:58→20:30)
--- NOTE | 2021-03-13 11:32 | Cardiology Progress Note ---
Date of Service March 13, 2021 Assessment & Plan (1) Acute on chronic heart failure with reduced ejection fraction and diastolic dysfunction: Plan: * Nonischemic cardiomyopathy * Status post single-chamber Medtronic AICD for primary prevention * Morbid obesity * Labile hypertension * Diabetes, hemoglobin A1c 12.5% * Nonadherence to treatment plan, poor medical insight with regards to his illness * Blood-tinged sputum Patient states that the blood in his sputum has improved at present. CTA this admission without findings of pulmonary nodules. Patient was off of anticoagulation at the time of presentation, having completed a course of Eliquis as prescribed in May, with findings of possible pulmonary embolism on technically limited CTA at [facility] at that time. Question if his blood-tinged sputum is due to high filling pressures in the setting of labile hypertension, systolic/diastolic dysfunction. Patient's weight trend reviewed. The measurement of 176.4 k on 03/11/2021 was a value recorded to have been obtained by a built in bed scale, perhaps by EMS, and does not correlate well with the previous measurement of 147 kg on 02/26/2021, or 158.7 kg obtained 03/12/2021. I think it is probably reasonable to assume that he has had a 10 kg weight gain since recent discharge 2 weeks ago. 24-hour fluid balance measurements have been -2.7 L and -3.2 L over the last 2 days. Potassium mildly low at 3.4, but supplementation already ordered as standing order. Continue current dose of oral furosemide 40 mg IV twice daily, spironolactone, potassium chloride, aspirin 81 mg daily, atorvastatin, isosorbide mononitrate, metoprolol, Entresto. Patient has declined multiple doses of subcutaneous heparin which is ordered for DVT prophylaxis, citing poorly healing abdominal wounds. The patient's nurse to try to educate him with regards to importance of DVT prophylaxis as did the undersigned. Since his blood-tinged sputum is improved, one option may be to place him on Eliquis 2.5 mg twice daily for DVT prophylaxis while he is here, as he is certainly at high risk for venous thromboembolic event. Hemoglobin stable today 14. Will discuss case with hospitalist service for coordination of care. Dr Johns is rounding for our service on 03/14/21. Admission and Anticipated Discharge Date Admission Date: March 11, 2021 Subjective Patient seen in follow-up. His most significant subjective complaint is ongoing shortness of breath, requires ongoing supplementation of oxygen, 6 L to maintain pulse oximetry 96%, despite vigorous diuresis. His secondary complaint is that he once again request that his fluid restriction be lifted stating that he is only drinking Sprite. Physical Exam Physical Exam: Temp Pulse Resp BP Pulse Ox 36.5 C 60 16 110/67 96 03/13/21 08:00 03/13/21 08:00 03/13/21 08:00 03/13/21 08:00 03/13/21 08:00 Constitutional: + morbidly obese Respiratory: Auscultation: + diminished lung sounds (Reduced breath sounds bilaterally at the bases) Cardiovascular: Rate/Rhythm: regular rate and regular rhythm Heart Sounds: no murmur Extremities: + edema (Pedal and lower extremity edema trending toward improvement, trace to mild,) Neurologic: No focal deficits Genitourinary: Patient utilizing bedside urine, clear yellow/my urine noted Results & Data ([facility]) Vital Signs (Past 12 Hours) Vital Signs Temp Pulse Pulse Resp BP Pulse Ox 03/13/21 08:00 36.5 C 60 16 110/67 96 03/13/21 07:56 62 03/13/21 07:15 77 20 97 03/13/21 03:47 88 21 93 03/13/21 03:20 36.4 C L 82 16 99/70 L 95 03/13/21 00:06 36.4 C L 91 H 18 112/73 94 03/12/21 23:59 88 20 95 03/12/21 23:52 91 H 24 94 Laboratory Results Telemetry reveals sinus rhythm in the 70s. CBC 03/13/21 Range/Units 05:50 WBC 8.62 (4.8-10.8) K/uL RBC 5.27 (4.7-6.1) M/uL Hgb 14.0 (14.0-18.0) g/dL Hct 43.6 (42-52) % Plt Count 178 (130-400) K/uL Neut # (Auto) 5.30 (1.4-6.5) K/uL Lymph # (Auto) 2.43 (1.2-3.4) K/uL Miner # (Auto) 0.69 H (0.11-0.59) K/uL Eos # (Auto) 0.15 (0-0.5) K/uL Baso # (Auto) 0.02 (0-0.2) K/uL Comprehensive Metabolic Panel 03/13/21 Range/Units 05:50 Sodium 135 L (136-145) mmol/L Potassium 3.4 L (3.5-5.1) mmol/L Chloride 98 (98-107) mmol/L Carbon Dioxide 29 (21-32) mmol/L BUN 17 (6-23) mg/dl Creatinine 1.08 (0.6-1.4) mg/dl Glucose 221 H (70-99(Fasting)) mg/dl Calcium 8.4 L (8.5-10.1) mg/dl Intake and Output 03/12/21 03/13/21 03/13/21 22:59 06:59 14:59 Intake Total 400 / 920 Output Total 1600 / 4150 Balance 400 / -3230 -1600 / -3230 Intake: Oral 400 / 920 Output: Urine 1600 / 4150 Other: Weight 157.8 kg Weight Measurement Method Built in [facility]
[2021-03-13] MEDS: APIXABAN 2.5 MG TAB PO SCH ×2 (12:12→20:29)
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
[2021-03-13] MEDS: INSULIN GLARGINE SOLOSTAR 100 UNITS/ML 3 ML PEN SC SCH (20:22)
[2021-03-13] MEDS ORDERED: NYSTATIN POWDER 15GM BTL EXT SCH (22:45)
[2021-03-13] MEDS ORDERED: Nursing to Pharmacy Communication SCH (22:45)
[2021-03-14] MEDS: ALBUTEROL 0.083% NEBU SOLN 3 ML VIAL INH SCH ×2 (00:01→07:16)
[2021-03-14 07:22] LABS: Basophils # (auto) 0.01 K/uL (0-0.2); Basophils % (auto) 0.1 %; Eosinophils # (auto) 0.17 K/uL (0-0.5); Eosinophils % (auto) 2.1 %; Hematocrit (blood only) 43.9 % (42-52); Hemoglobin 14.2 g/dL (14.0-18.0); Immature Granulocytes # (auto) 0.03 K/uL (0.00-0.02); Immature Granulocytes % (auto) 0.4 %; Lymphocytes # (auto) 2.16 K/uL (1.2-3.4); Lymphocytes % (auto) 26.8 %; Mean Corpuscular Hemoglobin 26.9 pg (25-34); Mean Corpuscular Hgb Conc 32.3 g/dL (32-36); Mean Corpuscular Volume 83.1 fL (80-100); Mean Platelet Volume 10.3 fL (7.4-10.4); Monocytes # (auto) 0.67 K/uL (0.11-0.59); Monocytes % (auto) 8.3 %; Neutrophils # (auto) 5.02 K/uL (1.4-6.5); Neutrophils % (auto) 62.3 %; Platelet Count 171 K/uL (130-400); RDW Coefficient of Variation 16.7 % (11.5-14.5); RDW Standard Deviation 50.8 fL (36.4-46.3); Red Blood Count 5.28 M/uL (4.7-6.1); White Blood Count 8.06 K/uL (4.8-10.8)
[2021-03-14 07:45] LABS: BUN Creatinine Ratio 21.2 (10-20); Calcium 8.4 mg/dl (8.5-10.1); Est GFR (African American) 91.1 ml/min; Est GFR (Non-African American) 78.6 ml/min
[2021-03-14] MEDS: INSULIN ASPART PER UNIT SC SCH ×4 (07:51→20:52)
[2021-03-14] MEDS: SPIRONOLACTONE 25 MG TAB PO SCH ×2 (07:59→16:48)
[2021-03-14] MEDS: ATORVASTATIN 10 MG TAB PO SCH (07:59)
[2021-03-14] MEDS: ASPIRIN 81 MG ECTAB PO SCH (07:59)
[2021-03-14] MEDS: VALSARTAN/SACUBITRIL 103/97MG TAB PO SCH ×2 (07:59→20:59)
[2021-03-14] MEDS: CHOLECALCIFEROL 1,000 UNITS 25 MCG TAB PO SCH ×2 (07:59→20:50)
[2021-03-14] MEDS: POTASSIUM CHLORIDE CRTAB 20 MEQ TABCR PO SCH ×3 (07:59→20:59)
[2021-03-14] MEDS: METOPROLOL SUCC 50MG EXT REL TAB PO SCH ×2 (07:59→20:57)
[2021-03-14] MEDS: ISOSORBIDE MONO EXTENDED REL 60 MG TABCR PO SCH (07:59)
[2021-03-14] MEDS: APIXABAN 2.5 MG TAB PO SCH ×2 (07:59→20:49)
[2021-03-14] MEDS: FLUTICASONE/VILANTEROL 100/25MCG 14 PUFFS/INHALER INH SCH (08:01)
[2021-03-14] MEDS: FUROSEMIDE 40 MG/4 ML VIAL IV SCH ×2 (08:01→20:50)
[2021-03-14] MEDS: PANTOprazole 40 MG TAB PO SCH ×2 (08:02→20:58)
--- NOTE | 2021-03-14 08:38 | Cardiology Progress Note ---
Date of Service March 14, 2021 Assessment & Plan (1) Acute on chronic heart failure with reduced ejection fraction and diastolic dysfunction: Plan: * Nonischemic cardiomyopathy * Status post single-chamber Medtronic AICD for primary prevention * Morbid obesity * Labile hypertension * Diabetes, hemoglobin A1c 12.5% * Nonadherence to treatment plan, poor medical insight with regards to his illness * Blood-tinged sputum Patient states that the blood in his sputum has improved at present. CTA this admission without findings of pulmonary nodules. Patient was off of anticoagulation at the time of presentation, having completed a course of Eliquis as prescribed in May, with findings of possible pulmonary embolism on technically limited CTA at [facility] at that time. Question if his blood-tinged sputum is due to high filling pressures in t he setting of labile hypertension, systolic/diastolic dysfunction. No further blood in sputum per patient. Patient remains hypervolemic on exam. Continue current dose of oral furosemide 40 mg IV twice daily, spironolactone, potassium chloride, aspirin 81 mg daily, atorvastatin, isosorbide mononitrate, metoprolol, Entresto. Plan for 1-2 more days of inpatient diuresis. Continue 1500 cc fluid res triction as well as a less than 2g sodium diet. Trend renal function and replace electroylytes as appropriate. Heart rate and blood pressure well controlled. NSR 70-80s noted on monitor over night. Wean o2 as tolerated. Patient has declined multiple doses of subcutaneous heparin which is ordered for DVT prophylaxis. Now on Eliquis 2.5 mg twice daily for DVT prophylaxis while he is here, as he is certainly at high risk for venous thromboembolic event. Hemoglobin stable today 14.2. Patient normally maintains of Torsemide 40 mg BID at home. Case discussed with hospitalist service for coordination of care. Recommend following with case mgmt regarding replacement of his bipap as not wearing this can certainly make his blood pressure and volume status difficult to control as an out patient. Case discussed with Dr. Johns. Recommend close CHF/cardiology follow up upon discharge. Admission and Anticipated Discharge Date Admission Date: March 11, 2021 Supervising Physician Co-Signing Physician Notes Patient seen and examined with CM Han. Agree with findings and assessment as above. We will continue to diurese as above. Subjective 45 year old male being seen for consultation of acute on chronic HFrEF. Patient had complaints of shortness of breath and blood in sputum. No on Eliquis 2.5 mg BID due to noncompliance with SQ heparin for DVT prophylaxis. Known medication noncompliance in the past. Resting in bed comfortably. Ongoing shortness of breath and orthopnea. No chest pain, palpitations, dizziness, syncope or near syncope. No fever, chills, coug h, hematochezia, melena, or hemoptysis. Refusing to drink water. Will only drink diet Sprite. Wore bipap over night. Notes that he has been off of his bipap x1 year due to recall- states hes scared to sleep at home without it. Has not reached out to the company regarding this. No further blood in sputum per patient. Tele: SR 70-80s. 5 beat run of asymptomatic VTACH over night Weight: 176.4 kg >>> 156.6 kg I&O: -9.7 L Hgb 14.2, NA 134 L, K+ 4.0, BUN 24 H, Scr 1.13 Review of Systems Review of Systems: All systems reviewed & are unremarkable except as noted in HPI & below Physical Exam Physical Exam: General: No acute distress. A+Ox3. HEENT: Normocephalic. Atraumatic. Conjunctiva and sclera clear. NECK: No carotid bruits. Unable to assess neck veins due to body habitis Heart: Distant heart sounds. Lungs: Diminished. Abdomen: Normal bowel sounds. Obese. Extremities: No edema. No clubbing or cyanosis. Pulses: radial=2/4, posterior tibial=2/4, dorsalis pedis = 2/4. NEURO: No focal deficits. Results & Data ([facility]) Vital Signs (Past 12 Hours) Vital Signs Temp Pulse Pulse Resp BP Pulse Ox 03/14/21 07:17 82 22 97 03/14/21 07:08 36.4 C L 76 22 100/69 99 03/14/21 03:20 73 22 96 03/14/21 03:04 36.5 C 73 20 113/60 96 03/14/21 01:27 74 03/14/21 00:16 86 18 95 03/14/21 00:02 17 L 19 98 03/13/21 22:57 36.8 C 85 18 99/65 L 98 Laboratory Results 03/14/21 03/14/21 03/14/21 Range/Units 07:22 06:31 06:31 WBC 8.06 (4.8-10.8) K/uL RBC 5.28 (4.7-6.1) M/uL Hgb 14.2 (14.0-18.0) g/dL Hct 43.9 (42-52) % MCV 83.1 (80-100) fL MCH 26.9 (25-34) pg MCHC 32.3 (32-36) g/dL RDW Std Deviation 50.8 H (36.4-46.3) fL RDW Coeff of Zoltan 16.7 H (11.5-14.5) % Plt Count 171 (130-400) K/uL MPV 10.3 (7.4-10.4) fL Immature Gran % (Auto) 0.4 % Neut % (Auto) 62.3 % Lymph % (Auto) 26.8 % [place] % (Auto) 8.3 % Eos % (Auto) 2.1 % Baso % (Auto) 0.1 % Neut # (Auto) 5.02 (1.4-6.5) K/uL Lymph # (Auto) 2.16 (1.2-3.4) K/uL [place] # (Auto) 0.67 H (0.11-0.59) K/uL Eos # (Auto) 0.17 (0-0.5) K/uL Baso # (Auto) 0.01 (0-0.2) K/uL Immature Gran # (Auto) 0.03 H (0.00-0.02) K/uL Sodium 134 L (136-145) mmol/L Potassium 4.0 (3.5-5.1) mmol/L Chloride 99 (98-107) mmol/L Carbon Dioxide 28 (21-32) mmol/L Anion Gap 7 (3-11) BUN 24 H (6-23) mg/dl Creatinine 1.13 (0.6-1.4) mg/dl Est Cr Clr Drug Dosing 124.0 ml/min Est GFR ( Amer) 91.1 ml/min Est GFR (Non-Af Amer) 78.6 ml/min BUN/Creatinine Ratio 21.2 H (10-20) Glucose 245 H (70-99(Fasting)) mg/dl POC Glucose 248 H (70-99) mg/dl Calcium 8.4 L (8.5-10.1) mg/dl Procalcitonin (0-0.5) ng/ml 03/13/21 03/13/21 03/13/21 Range/Units 20:02 16:34 11:25 WBC (4.8-10.8) K/uL RBC (4.7-6.1) M/uL Hgb (14.0-18.0) g/dL Hct (42-52) % MCV (80-100) fL MCH (25-34) pg MCHC (32-36) g/dL RDW Std Deviation (36.4-46.3) fL RDW Coeff of Zoltan (11.5-14.5) % Plt Count (130-400) K/uL MPV (7.4-10.4) fL Immature Gran % (Auto) % Neut % (Auto) % Lymph % (Auto) % [place] % (Auto) % Eos % (Auto) % Baso % (Auto) % Neut # (Auto) (1.4-6.5) K/uL Lymph # (Auto) (1.2-3.4) K/uL [place] # (Auto) (0.11-0.59) K/uL Eos # (Auto) (0-0.5) K/uL Baso # (Auto) (0-0.2) K/uL Immature Gran # (Auto) (0.00-0.02) K/uL Sodium (136-145) mmol/L Potassium (3.5-5.1) mmol/L Chloride (98-107) mmol/L Carbon Dioxide (21-32) mmol/L Anion Gap (3-11) BUN (6-23) mg/dl Creatinine (0.6-1.4) mg/dl Est Cr Clr Drug Dosing ml/min Est GFR ( Amer) ml/min Est GFR (Non-Af Amer) ml/min BUN/Creatinine Ratio (10-20) Glucose (70-99(Fasting)) mg/dl POC Glucose 157 H 98 268 H (70-99) mg/dl Calcium (8.5-10.1) mg/dl Procalcitonin (0-0.5) ng/ml 01/30/22 Range/Units 08:52 WBC (4.8-10.8) K/uL RBC (4.7-6.1) M/uL Hgb (14.0-18.0) g/dL Hct (42-52) % MCV (80-100) fL MCH (25-34) pg MCHC (32-36) g/dL RDW Std Deviation (36.4-46.3) fL RDW Coeff of Zoltan (11.5-14.5) % Plt Count (130-400) K/uL MPV (7.4-10.4) fL Immature Gran % (Auto) % Neut % (Auto) % Lymph % (Auto) % [place] % (Auto) % Eos % (Auto) % Baso % (Auto) % Neut # (Auto) (1.4-6.5) K/uL Lymph # (Auto) (1.2-3.4) K/uL [place] # (Auto) (0.11-0.59) K/uL Eos # (Auto) (0-0.5) K/uL Baso # (Auto) (0-0.2) K/uL Immature Gran # (Auto) (0.00-0.02) K/uL Sodium (136-145) mmol/L Potassium (3.5-5.1) mmol/L Chloride (98-107) mmol/L Carbon Dioxide (21-32) mmol/L Anion Gap (3-11) BUN (6-23) mg/dl Creatinine (0.6-1.4) mg/dl Est Cr Clr Drug Dosing ml/min Est GFR ( Amer) ml/min Est GFR (Non-Af Amer) ml/min BUN/Creatinine Ratio (10-20) Glucose (70-99(Fasting)) mg/dl POC Glucose (70-99) mg/dl Calcium (8.5-10.1) mg/dl Procalcitonin < 0.05 (0-0.5) ng/ml
[2021-03-14] MEDS ORDERED: INSULIN GLARGINE SOLOSTAR 100 UNITS/ML 3 ML PEN SC SCH (09:00)
[2021-03-14] MEDS ORDERED: ALBUTEROL 0.083% NEBU SOLN 3 ML VIAL INH PRN (10:11)
--- NOTE | 2021-03-14 10:16 | Pharmacy Report ---
Pharmacy Glycemic Short Note 2 - Date of Service March 14, 2021 - Glycemic Short BSG Results (Last 24 hours): 03/13/21 03/13/21 03/13/21 11:25 16:34 20:02 Glucose POC Glucose 268 H 98 157 H 03/14/21 03/14/21 06:31 07:22 Glucose 245 H POC Glucose 248 H OUTPATIENT ANTIDIABETIC REGIMEN: * Trulicity 1.5 mg SC every Sunday * HbA1c = 12.5% (03/12/21) ASSESSMENT: 03/14: * Received 95 units of insulin yesterday (25 units Lantus + 75 units Novolog). BSGs were labile: 439-260-17-157 mg/dL. * Fasting BSG remains elevated at 248 mg/dL this AM. Believe Lantus is not lasting full 24 hours so will increase basal dose by 20% and split it BID. * Believe Novolog is stacking between breakfast and lunch causing BSGs to be below goal at dinner. Will tighten coverage with breakfast only then loosen coverage throughout the rest of the day. 03/12: * Patient admitted with hemoptysis, dyspnea on admission, type 2 diabetic poorly controlled * BSG 277 mg/dL at time of glycemic consult, plan to tighten to stress of 2/3 with novolog. Likely patient basal deficient, will give another 10 units of Lantus for now and have scale on for HS time PLAN FOR INPATIENT GLYCEMIC CONTROL: * Hold outpatient injectable diabetes medication * Basal insulin - increased 20% * Lantus 22 units SC AM * Lantus 18-22 units SC HS (18 units for BSG less than 180 mg/dL) * Bolus insulin - tighten with breakfast, loosen rest of day * NovoLog per scale ACHS or Q6hrs while NPO * Goal Range: Low 110 mg/dL - High 140 mg/dL * Breakfast: Correction Factor: 15 mg/dL/unit; Nutritional / Prandial insulin per carb ratio of 1 unit per 5 grams CHO consumed * Lunch, Dinner, Bedtime: Correction Factor: 25 mg/dL/unit; Nutritional / Prandial insulin per carb ratio of 1 unit per 8 grams CHO consumed PLAN FOR DISCHARGE: * HbA1c of 12.5% demonstrates poor outpatient control of T2DM. Goal HbA1c should be less than 8% for this patient. * Patient has a history of non-compliance as well as a noted ~30 lb weight gain this month. 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 Recommend close follow-up with [facility] end[facility] at discharge or [facility] clinic for help with managing T2DM. * Will require basal insulin and addition of Metformin prior to discharge. Could consider transition to Ozempic which is FDA approved for weight management.
[2021-03-14] MEDS: ALBUTEROL HFA 8 GM INHALER INH SCH ×2 (12:46→19:47)
--- NOTE | 2021-03-14 16:55 | Hospitalist Progress Note ---
Date of Service March 14, 2021 Assessment & Plan (1) Acute dyspnea: Plan: Dyspnea with acute hypoxemic respiratory failure Requiring BiPAP on admission with tachycardia and tachypnea CXR on admission: Obvious pulmonary edema, BNP slightly elevated Patient with brisk diuresis following Lasix in ER and continued during admission Patient feels his breathing is greatly improved today compared to prior. Feels he is nearly back to his normal baseline 03/14, still with some extra fluid and O2 req Given history of PE, continued bloody sputum production, persistent tachycardia, and cessation of anticoagulation this past November D-dimer obtained which was elevated, CTA ordered but no PE as below CTA: No evidence of PE, groundglass bilateral opacities suspicious for viral pneumonia. Bio fire respiratory panel negative, procalcitonin negative. COVID negative x2 - See [facility] CHF Below Serial follow-up x-ray tomorrow morning (2) Acute on chronic congestive heart failure: Plan: 30 pound weight increase since 02/26. Patient with orthopnea, chest x-ray with cardiomegaly and pulmonary edema Patient on torsemide 40 mg twice daily at home, Lasix continued at this time w/ torsemide held Discussed with cardiology, patient is tolerating diuresis with stable creatinine and normal BUN/creatinine ratio. Difficult to assess dry weight and volume status given morbid obesity and fluctuating measurements, but certainly is up and has had multiple readmissions for rapid fluid decompensation in the past. 03/14: He is clinically improved from prior and feels he is nearing his home oxygen requirements/exertion ability. Still tolerating aggressive diuresis, will continue overnight and potentially convert to orals with further home diuresis tomorrow. CTA as above Continue BMP daily (3) NICM (nonischemic cardiomyopathy): Plan: -Chronic.Volume state difficult to evaluate due to body habitus, chest x-ray showed cardiomegaly and pulmonary edema. -Received IV Lasix on admission, IV Lasix twice daily continued. May convert to 40 mg home torsemide on dc -Continue Imdur -Continue Metoprolol -Continue Entresto -Continue Spironolactone -Monitor urine output, weight and electrolytes daily. Low-sodium diet, 1.5 L fluid restriction. (4) Diabetes mellitus type II, uncontrolled: Plan: -Poorly controlled. -Lantus 16 units by daily with sliding scale coverage, increased to 36 then adjusted to 22u. sliding scale tightened 1/29 -Goal blood sugar 110 - 180. -CC diet. -A1c 12.5%, poor control which will require additional outpatient follow-up - Pt was without insulin for several months [employer]ILD [employer]OTECTION [employer]IST and could not get a renewed script due to followup >1yr prior to PCP. Previously on Humalog 50/50 Kwikpen 40u breakfast, 40 units dinner. Endocrine appointment for this . (5) Obstructive sleep apnea: Plan: Patient is noncompliant with CPAP. -Currently requiring BiPAP. -CPAP qHS. (6) Hypertension: Plan: -SBP initially elevated in 170 to 180s. -Patient normotensive 03/12 -Continue Imdur. -Continue Metoprolol. -Continue Entresto. (7) COPD (chronic obstructive pulmonary disease): Plan: -Continue Symbicort. -Nebs Q6 PRN. (8) Morbid obesity with BMI of 50.0-59.9, adult: Plan: -His obesity is increasing his mortality greatly. (9) Chronic anticoagulation: Plan: -Patient states his Eliquis was discontinued in November. Patient is noncompliant with injectable DVT prophylaxis/Lovenox. Discussed with cardiology. Recommend low dose DOAC for DVT risk prevention while inpatient. (10) DVT prophylaxis: Plan: -SCDs ordered. -No active prophylaxis as noted above, patient had refused injectables Plan: Social: Patient with blown fuses to his power chair, tempting to have fuses replaced for patient today. Does have issues not being able to use his power chair at night due to being without certain lights and would like to upgrade to power chair, will have follow-up for this as an outpatient. Admission and Anticipated Discharge Date Admission Date: March 11, 2021 Subjective Seen at bedside today. He reports he actually feels his breathing is greatly improved today for the first time. Near but not quite at his baseline. Thinks he still has some extra fluid, but is not sure. Seen with family at the bedside, update given. Motorized chair is having fuses replaced by our staff as had not been working. He denies fever, chills, sweats, cough today. No lightheadedness/dizziness. Overall progressing. Review of Systems Review of Systems: All systems reviewed & are unremarkable except as noted in Subjective Physical Exam Physical Exam: General: A&Ox3. NAD. Cooperative. Obese. HEENT: Atraumatic, normocephalic. PERLAA. Vision and hearing grossly intact. Pulm: CTAB A&P. Coarse basilar breath sounds bilaterally, no wheezes. Symmetrical chest rise. No increased work of breathing. No respiratory distress. Cardiac: RRR, no murmurs/rubs/gallops. Radial pulses intact and symmetrical. Abdominal: Obese, diffuse scarring from prior cysts without current active erythema/warmth. BS present. Ext: Grossly intact, moving all extremities equally, sensation to soft touch intact in hands and feet bilaterally. Pedal/ankle edema present Results & Data Results & Data ([facility]) Vital Signs (Past 12 Hours) Vital Signs Temp Pulse Pulse Resp BP BP Pulse Ox 03/14/21 15:26 36.7 C 77 21 108/68 98 03/14/21 12:46 79 20 92 03/14/21 11:00 36.5 C 81 20 90/49 L 97 03/14/21 10:18 73 03/14/21 07:17 82 22 97 03/14/21 07:08 36.4 C L 76 22 100/69 99 PG Care Time/CCT Total # of Minutes Spent Total Time Spent with Patient: Total time spent is greater than 50% in coordination of care (as documented) at patient's floor/unit and/or counseling patient: Coding Level of Care Code 04807 Subseq Hosp Care Lvl 2 Diagnoses Acute dyspnea R06.00 Acute on chronic congestive heart failure I50.43 Heart failure type: combined systolic and diastolic NICM (nonischemic cardiomyopathy) I42.8 Diabetes mellitus type II, uncontrolled E11.65 Glycemic state: with hyperglycemia Obstructive sleep apnea G47.33 Hypertension I10 Hypertension type: unspecified COPD (chronic obstructive pulmonary disease) J44.9 COPD type: unspecified COPD Morbid obesity with BMI of 50.0-59.9, adult E66.01; Z68.43 Chronic anticoagulation Z79.01 DVT prophylaxis Z29.9 (1) Acute on chronic congestive heart failure Heart failure type: combined systolic and diastolic Qualified Code(s): I50.43 - Acute on chronic combined systolic (congestive) and diastolic (congestive) heart failure (2) Diabetes mellitus type II, uncontrolled Glycemic state: with hyperglycemia Qualified Code(s): E11.65 - Type 2 diabetes mellitus with hyperglycemia (3) Hypertension Hypertension type: unspecified Qualified Code(s): I10 - Essential (primary) hypertension (4) COPD (chronic obstructive pulmonary disease) COPD type: unspecified COPD Qualified Code(s): J44.9 - Chronic obstructive pulmonary disease, unspecified
[2021-03-14] MEDS: INSULIN GLARGINE SOLOSTAR 100 UNITS/ML 3 ML PEN SC SCH (20:54)
[2021-03-15] MEDS: ALBUTEROL HFA 8 GM INHALER INH SCH ×3 (01:08→12:49)
[2021-03-15] MEDS ORDERED: INSULIN ASPART PER UNIT SC SCH (07:30)
[2021-03-15] MEDS: SPIRONOLACTONE 25 MG TAB PO SCH (08:16)
[2021-03-15] MEDS: PANTOprazole 40 MG TAB PO SCH (08:16)
[2021-03-15] MEDS: ASPIRIN 81 MG ECTAB PO SCH (08:16)
[2021-03-15] MEDS: VALSARTAN/SACUBITRIL 103/97MG TAB PO SCH (08:16)
[2021-03-15] MEDS: APIXABAN 2.5 MG TAB PO SCH (08:17)
[2021-03-15] MEDS: CHOLECALCIFEROL 1,000 UNITS 25 MCG TAB PO SCH (08:17)
[2021-03-15] MEDS: ISOSORBIDE MONO EXTENDED REL 60 MG TABCR PO SCH (08:17)
[2021-03-15] MEDS: METOPROLOL SUCC 50MG EXT REL TAB PO SCH (08:17)
[2021-03-15] MEDS: ATORVASTATIN 10 MG TAB PO SCH (08:17)
[2021-03-15] MEDS: FLUTICASONE/VILANTEROL 100/25MCG 14 PUFFS/INHALER INH SCH (08:18)
[2021-03-15] MEDS ORDERED: INSULIN GLARGINE SOLOSTAR 100 UNITS/ML 3 ML PEN SC SCH (09:00)
[2021-03-15 09:14] LABS: BUN Creatinine Ratio 26.6 (10-20); Calcium 8.4 mg/dl (8.5-10.1); Creatinine Clr Calc Pharmacy 128.7 ml/min; Est GFR (African American) 95.2 ml/min; Est GFR (Non-African American) 82.1 ml/min; Potassium 4.6 mmol/L (3.5-5.1)
[2021-03-15] MEDS: FUROSEMIDE 40 MG/4 ML VIAL IV SCH (09:15)
--- NOTE | 2021-03-15 10:23 | Pharmacy Report ---
Pharmacy Glycemic Short Note 2 - Date of Service March 15, 2021 - Glycemic Short BSG Results (Last 24 hours): 03/14/21 03/14/21 03/14/21 11:34 16:15 20:01 Glucose POC Glucose 203 H 167 H 212 H 03/15/21 03/15/21 07:19 08:31 Glucose 278 H POC Glucose 238 H OUTPATIENT ANTIDIABETIC REGIMEN: * Trulicity 1.5 mg SC every Sunday * HbA1c = 12.5% (03/12/21) ASSESSMENT: 03/15: * Received 90 units of insulin yesterday (44 units Lantus + 46 units Novolog). BSGs were above goal: 054-205-990-212 mg/dL. * Fasting improved slightly to 238 mg/dL this AM. Will increase basal again today. * Likely discharge today so updated discharge recommendations below. 03/14: * Received 95 units of insulin yesterday (36 units Lantus + 59 units Novolog). BSGs were labile: 784-481-76-157 mg/dL. * Fasting BSG remains elevated at 248 mg/dL this AM. Believe Lantus is not lasting full 24 hours so will increase basal dose by 20% and split it BID. * Believe Novolog is stacking between breakfast and lunch causing BSGs to be below goal at dinner. Will tighten coverage with breakfast only then loosen coverage throughout the rest of the day. 03/12: * Patient admitted with hemoptysis, dyspnea on admission, type 2 diabetic poorly controlled * BSG 277 mg/dL at time of glycemic consult, plan to tighten to stress of 2/3 with novolog. Likely patient basal deficient, will give another 10 units of Lantus for now and have scale on for HS time PLAN FOR INPATIENT GLYCEMIC CONTROL: * Hold outpatient injectable diabetes medication * Basal insulin - increased * Lantus 25 units SC AM * Lantus 22-25 units SC HS (22 units for BSG less than 180 mg/dL) * Bolus insulin - tightened CR with lunch and dinner * NovoLog per scale ACHS or Q6hrs while NPO * Goal Range: Low 110 mg/dL - High 140 mg/dL * Breakfast: Correction Factor: 15 mg/dL/unit; Nutritional / Prandial insulin per carb ratio of 1 unit per 5 grams CHO consumed * Lunch, Dinner, Bedtime: Correction Factor: 25 mg/dL/unit; Nutritional / Prandial insulin per carb ratio of 1 unit per 7 grams CHO consumed PLAN FOR DISCHARGE: * HbA1c of 12.5% demonstrates poor outpatient control of T2DM. Goal HbA1c should be less than 8% for this patient. * Patient has a history of non-compliance as well as a noted ~30 lb weight gain this month. * Recommend restarting Humalog Mix 50/50 - inject 40 units subcutaneously twice daily prior to breakfast and dinner. Continue Trulicity. * Okay to start evening of discharge if Lantus has been given in the AM. * Patient has an outpatient follow-up appointment with [facility]ocr[facility]ology tomorrow. Important to maintain this appointment. Defer further medication changes to conveyor line battery charger.
--- NOTE | 2021-03-15 11:11 | Discharge Summary ---
Date of Service March 15, 2021 Admission HPI Per Admitting Provider 44 YOM male with intellectual disabilities with past medical history morbid obesity, cellulitis, NICM with AICD, HFrEF, HTN, medical noncompliance, DMII, MARIELENA, and PE who presents today with hemoptysis. Patient is a poor historian. He was discharged on 02/26 after receiving treatment for HF exacerbation, pneumonia, and skin infection and reports ongoing hemoptysis since then. Seems to be a chronic complaint for patient. He is unable to quantify the amount of blood he is coughing up, or specify if it is jose red blood. He also reports orthopnea, unable to breathe comfortably unless at a 90 degree angle. He reported bilateral lower extremity edema but no pain in his calves. He is unable to elaborate on whether this orthopnea is new or chronic, ongoing. He denies fever/chills, chest pain, abdominal pain, nausea, vomiting, diarrhea, or recent illness. He has a history of medication noncompliance, however says he has been compliant with all medications since discharge. Patient is followed [facility], he states they DC'd his apixaban in November. In ED, patient is hypertensive, tachypneic, and tachycardic. He is diaphoretic. Blood sugar 355. He received 10 units IV insulin as well as 40 mg IV Lasix in ED. Nitro-Bid patch on chest. An additional dose of 40 mg IV Lasix was given which patient patient responded well. Admission Exam Per Admitting Provider General: awake, alert, slightly diaphoretic on BIPAP Head: Normocephalic, atraumatic ENT: PERRL, EOMI, no pharyngeal exudate, mucous membranes moist Chest: Tachypneic, on BIPAP, no adventitious breath sounds Cardiac: Tachycardic, regular rhythm, no murmur, no JVD, normal peripheral pulses, good capillary refill Abdominal: NABS x 4 quadrants, soft, nontender to palpation, no rebound, guarding or tenderness Extremities: Bilateral lower extremity, calfs nontender to palpation Psych: Normal mood and affect Neuro: AAO x 3, strength intact bilaterally and rated 5/5, no motor deficits, speech is clear, no peripheral sensory deficits Skin: Abdomen appears edematous and has erythema consistent with injection site reactions. Principal Diagnosis AoC CHF Discharge Exam General: A&Ox3. NAD. Cooperative. Obese. HEENT: Atraumatic, normocephalic. PERLAA. Vision and hearing grossly intact. Pulm: CTAB A&P. Improved basilar breath sounds bilaterally, no wheezes. Symmetrical chest rise. No increased work of breathing. No respiratory distress. On baseline 2-3 L of oxygen nasal cannula Cardiac: RRR, no murmurs/rubs/gallops. Radial pulses intact and symmetrical. Abdominal: Obese, diffuse scarring from prior cysts without current active erythema/warmth. BS present. Ext: Grossly intact, moving all extremities equally, sensation to soft touch intact in hands and feet bilaterally. Trace pedal/ankle edema greatly improved from prior Discharge Data Allergies Allergy/AdvReac Type Severity Reaction Status Date / Time ceftriaxone Allergy Severe SHORTNESS Verified 03/11/21 10:49 OF BREATH lidocaine Allergy Severe SHORTNESS Verified 03/11/21 10:49 OF BREATH, diaphoretic, hives procaine Allergy Severe SHORTNESS Verified 03/11/21 10:49 OF BREATH, diaphoretic, hives amoxicillin Allergy Intermediate HIVES/FACIAL Verified 03/11/21 10:49 SWELLING clavulanic acid Allergy Intermediate HIVES/FACIAL Verified 03/11/21 10:49 SWELLING lisinopril Allergy Intermediate HIVES Verified 03/11/21 10:49 acetaminophen AdvReac Mild NAUSEA Verified 03/11/21 10:49 albuterol AdvReac Mild proair Verified 03/11/21 10:49 "trouble taking breaths" Fish Containing Products AdvReac Unknown Unknown Verified 03/13/21 08:31 Consultations 03/11/21 10:34 ED Decision to Admit Stat 03/11/21 19:07 Consult Cardiology Routine Ordered Studies 03/11/21 11:35 US venous doppler LE BI Stat 03/12/21 11:29 CT angio chest PE protocol Stat Diabetes Follow up Diabetes Follow-up Needed for HgbA1c >9% Hospital Course (1) Acute dyspnea: Alok is a 45-year-old male with a history of chronic congestive heart failure with reduced ejection fraction who presented with increased weight, difficulty breathing, orthopnea, and hemoptysis. He has had recurrent hemoptysis in the past associated with hypertension. He was treated with aggressive diuresis, Lasix twice daily IV with brisk diuresis and gradual clinical improvement. He felt "100% "back to normal at time of discharge, felt he was breathing comfortably at his normal baseline, and did not have any dyspnea or hemoptysis at discharge. To do as outpatient: 1. Continued diuresis with home torsemide twice daily. Follow-up to PCP/cardiology for continued fluid assessment and adjustments as needed 2. Social/medical supply issues follow-up. Patient ambulating at his normal baseline at time of discharge, but also attempting to get a power chair as he is not able to use his current chair due to the light/set up at night or on the bus. 3. Follow-up with cardiology within 1-2 weeks 4. Follow-up with PCP within 1-2 weeks 5. Resume insulin Humalog 50/50 diabetes treatment, 40 units twice daily. Patient with well-controlled A1c on this previously, A1c on admission uncontrolled 12.5% although patient had not been able to fill his insulin in several months 6. Diabetes follow-up, patient scheduled with endocrine follow-up 03/16/2021 Dyspnea -Required BiPAP, in the setting of tachycardia and tachypnea. Likely due to volume overload, pulmonary edema on chest x-ray. COVID test negative. Considered other causes such as pulmonary embolism, patient has a history of these and patient reports his Eliquis was stopped in November. B/l LE U/S was performed, DVT was not appreciated. CTA did not show evidence of PE. Patient dramatically improved with diuresis, and had resolution of his hemoptysis with diuresis and blood pressure control. Dyspnea resolved by day of discharge. Patient's oxygen requirements were at baseline 2-3 L at time of discharge. (2) Acute on chronic congestive heart failure: 30 pound weight gain since prior discharge 02/26 Seen by cardiology Diuresed aggressively with 80 units of Lasix, then 40 twice daily with brisk diuresis and tolerated this well Patient was at his baseline breathing at time of discharge, was discharged to resume torsemide Creatinine was stable during admission (3) NICM (nonischemic cardiomyopathy): -Chronic.Volume state difficult to evaluate due to body habitus, chest x- ray showed cardiomegaly and pulmonary edema. -Patient received 80 mg IV Lasix in ED. Will order 1 more dose of 40 mg IV Lasix for this evening. -Patient is on 40 mg torsemide twice daily at home. This was resumed on dischar ge -Continue Imdur -Continue Metoprolol -Continue Entresto -Continue Spironolactone -Monitor urine output, weight and electrolytes daily. Low-sodium diet, 1.5 L fluid restriction. (4) Diabetes mellitus type II, uncontrolled: -Poorly controlled. Elevated blood sugar presently at 355. -Regular insulin 10u IV now. -Lantus 16 units by daily with sliding scale coverage. -Goal blood sugar 110 - 180. -CC diet. -Adequate glycemic control during admission following insulin treatment, patient to resume Humalog 50/50 40 units twice daily regimen at home on discharge. A refill was sent for this and patient was scheduled with endocrinology. While his A1c was 12.5 during admission, it was previously around 7 on his home regimen. He had not been able to fill his insulin in several months due to not having a refill and being 1 year out from his last follow-up. (5) Obstructive sleep apnea: Patient is noncompliant with CPAP. -Currently requiring BiPAP. -CPAP qHS. (6) Hypertension: -SBP initially elevated in 170 to 180s. -Patient received 80 mg IV Lasix in ED and blood pressure responded well, adequate blood pressure control subsequently -Continue Imdur. -Continue Metoprolol. -Continue Entresto. (7) COPD (chronic obstructive pulmonary disease): -Continue Symbicort. -Nebs Q6 PRN during admission (8) Morbid obesity with BMI of 50.0-59.9, adult: -His obesity is increasing his mortality greatly. (9) Chronic anticoagulation: -Patient states his Eliquis was discontinued in November. Was treated with DOAC DVT prophylaxis due to refusing subcu heparin during admission. No PE was observed during admission, was discharged with cessation of DVT prophylaxis, but should be followed carefully in the future for clots (10) DVT prophylaxis: -SCDs ordered. -Heparin 7500 units switch to DOAC during admission as above Total Time Total Time Spent Total Time Spent (In Minutes): Time spend day of 45 discharge minutes including direct patient care, documentation, review of labs and images, and coordination of care. Discharge Plan Discharge Items Patient Disposition: Home - Self-Care Reason For Visit: HEMOPTYSIS Discharge Diagnosis: AoC CHF Activity: Resume your previous activity Non-emergency contact: Primary Care Provider and Associate Principal Call non-emergency contact if: your symptoms worsen and you have a fever Follow-up/Referrals: Richa Burr CRNP [Primary Care Provider] - Alexander Henriquez PA-C [Physician Senior Production Supervisor] - 03/16/21 1:30 pm Marcus Ca MD [Physician] - Diet: Heart Healthy and Low Sodium (2gm) Addtl Attending Provider Instructions: You are seen in the hospital for acute hypoxic respiratory failure and hemoptysis (blood in your sputum). You were found to have volume overload and were treated with diuretics (fluid medication to make you pee off extra fluid). Your blood in the sputum improved, and CT scans did not show any evidence of blood clots in your lungs. Your blood work did not show any signs of pneumonia. You gradually clinically improved, and have been discharged to resume your medications as noted below. It is critically important to maintain a low-salt diet, 2 g/day or less, and to monitor your weight for potential fluid retention. Even when taking fluid pills, excess salt/fluid intake can exceed the ability of your fluid medications to balance fluid in your body. If you notice more than a 3-5 pound weight gain over several days, please contact your horses or mules teamster for recommendations. Your blood sugars were adequately controlled during admission, but your A1c (3- month average) was very poor likely to not being able to receive insulin refills. Follow-up appointments have been made as noted above, and your insulin prescription has been refilled. Please follow-up with your endocrine appointment 03/16/2021 at 1:[address] Henriquez for additional recommendations and adjustments. Please continue to take your insulin Humalog 50/50 Mix 40 units twice daily as you were previously. This script has been refilled. A followup appointment is being scheduled for you with your PCP. You should be seen seen within 1-2 weeks. You should receive a call to confirm this appointment. If you do not receive a call within 48 hours to confirm this appointment, or need to change this appointment, please call the provider's office at the number above. A followup appointment is being scheduled for you with [facility]. You should be seen seen within 2 weeks. You should receive a call to confirm this appointment. If you do not receive a call within 48 hours to confirm this appointment, or need to change this appointment, please call the provider's office at . If you develop any new or worsening symptoms including fever, chills, sweats, chest pain, chest pressure, difficulty breathing, uncontrolled nausea/vomiting, rash, wheezing, passing out or nearly passing out, bleeding, black/bloody bowel movements, or other new or concerning symptoms please call your primary care physician, or call 911 for re-evaluation in the emergency department if you are very concerned. Pending Studies at Discharge: No Stand-Alone Forms: My [facility], Smoking Cessation Medications and DC Order Prescriptions: New Humalog Mix 50-50 KwikPen 100 unit/mL (50-50) insulin pen 40 unit subcut BID Qty: 15 RF: 0 Continued aspirin [Aspirin Low Dose] 81 mg tablet,delayed release (DR/EC) 81 mg PO DAILY Qty: 90 RF: 3 atorvastatin 10 mg tablet 10 mg PO DAILY Qty: 90 RF: 3 budesonide-formoterol [Symbicort] 160-4.5 mcg/actuation HFA aerosol inhaler 2 inh inhalation BID Qty: 10.2 RF: 2 albuterol sulfate 90 mcg/actuation HFA aerosol inhaler 1 inh inhalation QID Qty: 8.5 RF: 2 spironolactone [Aldactone] 25 mg tablet 75 mg PO QAM Qty: 90 RF: 5 Entresto 97-103 mg tablet 1 tab PO BID Qty: 60 RF: 5 metoprolol succinate 100 mg tablet extended release 24 hr 100 mg PO BID Qty: 60 RF: 5 esomeprazole magnesium [Nexium] 20 mg capsule,delayed release(DR/EC) 40 mg PO BID Qty: 60 RF: 5 Trulicity 1.5 mg/0.5 mL pen injector 1.5 mg SUBCUT WK Qty: 2 RF: 5 albuterol sulfate 2.5 mg /3 mL (0.083 %) solution for nebulization 2.5 mg inhalation Q6H Qty: 15 RF: 2 diphenhydramine-acetaminophen [Tylenol PM Extra Strength] 25-500 mg tablet 1 tab PO .Q HS PRN (Reason: pain) Qty: 14 RF: 0 nitroglycerin [Nitrostat] 0.4 mg tablet, sublingual 0.4 mg sublingual UD PRN (Reason: Chest Pain) RF: 0 cholecalciferol (vitamin D3) [Vitamin D3] 50 mcg (2,000 unit) Tablet 50 mcg PO BID RF: 0 isosorbide mononitrate 30 mg tablet extended release 24 hr 60 mg PO QAM RF: 0 torsemide 20 mg tablet 40 mg PO BID Qty: 60 RF: 5 Discontinued doxycycline monohydrate 100 mg capsule 100 mg PO BID Qty: 14 RF: 0 Discharge Orders: Discharge Order (Routine); Ordered 03/15/21 Ordered By: Negro Talamantes/Other Patient Handouts: Managing Type 2 Diabetes Admission Data Admit Date/Time: 03/11/21 12:53 Attending Provider: Negro Olson Admit Provider: Shemar Sky Primary Care Provider: Richa Burr Other Providers: Shemar Sky ; Marcus Ca Coding Level of Care Code D/C DAY MANAGEMENT >30 MINS Diagnoses Acute dyspnea R06.00 Acute on chronic congestive heart failure I50.43 Heart failure type: combined systolic and diastolic NICM (nonischemic cardiomyopathy) I42.8 Diabetes mellitus type II, uncontrolled E11.65 Glycemic state: with hyperglycemia Obstructive sleep apnea G47.33 Hypertension I10 Hypertension type: unspecified COPD (chronic obstructive pulmonary disease) J44.9 COPD type: unspecified COPD Morbid obesity with BMI of 50.0-59.9, adult E66.01; Z68.43 Chronic anticoagulation Z79.01 DVT prophylaxis Z29.9
[2021-03-15] MEDS: INSULIN ASPART PER UNIT SC SCH (12:27)
--- NOTE | 2021-03-27 15:13 | Coding Query ---
CONGESTIVE HEART FAILURE To Promote full compliance with coding requirements relating to patient care, physician participation is requested in all cases of bean dumper uncertainty. Please assist us with the following questions. A diagnosis of Congestive Heart Failure is documented in the patient's medical record. To accurately code this diagnosis and to compare patient severity, we ask that you specify the type of heart failure by placing an X within the parenthesis (x). 03/14 Cardiology note documented "acute/chonic heart failure with reduced ejection fraction and diastolic decreased dysfunction. Thanks for your help . MAXIMINO Estrada [facility] SYSTOLIC HEART FAILURE ( ) Acute ( ) Chronic ( ) Acute on Chronic ( ) Rheumatic ( ) Unknown DIASTOLIC HEART FAILURE ( ) Acute ( ) Chronic ( ) Acute on Chronic ( ) Rheumatic ( ) Unknown COMBINED SYSTOLIC AND DIASTOLIC HEART FAILURE ( x) Acute ( ) Chronic ( ) Acute on Chronic ( ) Rheumatic ( ) Unknown Was the CHF Present On Admission? Please check the appropriate box: ( x) Present on Admission ( ) Not Present On Admission ( ) Clinically undetermined Thank you Bryon STEIN
== END 2021-03-15 13:30 | disposition home or self-care (01) | DRG 291 ==
LOC: ED 09:08 → SUATTDRO 12:53 → EDINP 12:53 → 2S 16:27

== ENCOUNTER 2021-05-21 02:42 | Observation (INO) ==
--- NOTE | 2021-05-21 03:14 | Emergency Department Note ---
Impression & Plan SBO (small bowel obstruction) ADMIT ED Provider Note HPI: Patient is a 45-year-old male with history of nonischemic cardiomyopathy with reduced ejection fraction approximately 25% via echo in October 2019, morbid obesity, on home oxygen at 5 L, presents to the emergency department with a chief complaint of vomiting for the past 3 days as well as upper abdominal pain that worsens with vomiting. Patient states this is been ongoing for the past 3 days, states he has had difficulty with any type of p.o. intake. Denies any diarrhea, patient denies any anterior chest pain or shortness of breath but states he does have some pain in the area of his lower ribs bilaterally. On arrival here to the ED the patient is tachycardic, he is saturating well on his baseline nasal cannula oxygen at 5 L, he is otherwise in no acute distress on my initial evaluation. ROS: -GI: Upper abdominal pain, nausea and vomiting *10 point review systems was conducted and is otherwise negative unless stated above *Outpatient medications and allergy history reviewed PE: General: Alert, no acute distress, morbidly obese HEENT: Normocephalic, atraumatic on nasal cannula oxygen in place Eyes: Extraocular eye movement is intact, no scleral erythema Pulmonary: Slightly diminished bilaterally without crackles or wheezing Cardio: Regular rate and rhythm GI: Abdomen is soft, distended, moderate tenderness to palpation without guarding or rigidity : No suprapubic tenderness MSK: No evidence of trauma or malformation of the extremities, no edema Skin: No evidence of rash Neuro: Alert, no focal deficits Psychiatric: Cooperative residential monitor: - An order was placed for continuous cardiac monitoring - Patient was noted to be in sinus rhythm with rate of 90 EKG: Rate: 106 Rhythm: Sinus tachycardia Intervals: Within normal limits ST changes: No ST elevation Time: 0246 CT ABDOMEN & PELVIS With Contrast: Findings concerning for active inflammatory disease, likely fibrostenosing disease, with prominent jejunal thickening measuring 13.1 cm with upstream dilatation measuring up to 4.1 cm concerning for secondary bowel obstruction. Additional distal small bowel dilatation measuring up to 3.7 cm which likely relates to additional downstream site of active inflammatory disease. Consider MR enterography if there is further concern. Radiologist: Alok Silver MD Medical Decision Making: Patient presented to the emergency department the chief complaint of nausea and vomiting, also complained of some upper abdominal pain, shortly after arrival IV was established, lab work obtained, patient was placed on a threat monitoring analyst. He is noted to be hemodynamically stable and saturating well on 5 L nasal cannula oxygen which he tells me he wears at baseline. Lab work shows stable hemoglobin, no leukocytosis, no critical electrolyte abnormalities are noted. Troponin is negative x1. EKG does not show any acute ischemic changes. CT imaging of the abdomen pelvis with contrast was obtained that shows evidence of what appears to be a small bowel obstruction and also some findings concerning for inflammatory disease of the bowel. Case was discussed with on-call general surgery midlevel provider, Oracio Tripp PA-C, who evaluated the patient at the bedside. Given the patient's multiple comorbidities he will be admitted to the medicine service for further management following my discussion with the on-call hospitalist, Dr. Burr. Patient was in agreement to the above plan. He states he is having some improvement in his pain following morphine and Zofran here in the ED. He has had nausea but has not had any active vomiting here. He was admitted in stable condition for further care. Diagnosis: 1. Nausea and vomiting 2. Acute upper abdominal pain 3. Small bowel obstruction 4. History of cardiomyopathy with reduced ejection fraction, on home oxygen Disposition: Admission Cleveland Mccarty DO Emergency Medicine Past Med/Surg History Medical History (Updated 05/21/21 @ 06:01 by Boby Tripp PA-C) Bacteremia Chronic respiratory failure Dilatation of thoracic aorta Fatty liver Hearing loss of both ears Housing instability, currently housed, at risk for homelessness Hx of local infection of skin and subcutaneous tissue Iliac aneurysm Lung nodule NICM (nonischemic cardiomyopathy) Pt admitted for elective ICD. Underwent procedure without any complications monitored over night and discharged home. 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 Heart disease Myocardial infarction Mother , age 67 of a ruptured neck vessel Sudden Other Depression Lung disease No pertinent family history Denies family history of Ovarian cancer Prostate cancer Breast cancer Colorectal cancer Social History Smoking Status: Never smoker Tobacco Type: Cigarettes Age Started Using Tobacco: 14; Age Quit Using Tobacco: 18; Cigarettes Per Day: 40-50; Second Hand Exposure: No; Hx Alcohol Use: No Hx Substance Use: No Preferred Language: Bahamian Communication Ability: Effective Visual Impairment: No Limitations Hearing Ability: Normal Mail Service Coordinator Required: No Beliefs That Will Affect Care: None marital status: Current Living Situation: Spouse current occupational status: unemployed How many Children do You have: 0 Feels Safe at Home: Yes Childhood Exposure to Second-Hand Smoke: Yes Dental Care, Regularly: Yes Physical Activity Frequency: Does not Exercise Assistive Devices: Oxygen - Continuous, Walker and Wheelchair Allergies Allergies Allergy/AdvReac Type Severity Reaction Status Date / Time ceftriaxone Allergy Severe SHORTNESS Verified 03/22/21 15:19 OF BREATH lidocaine Allergy Severe SHORTNESS Verified 03/22/21 15:19 OF BREATH, diaphoretic, hives procaine Allergy Severe SHORTNESS Verified 03/22/21 15:19 OF BREATH, diaphoretic, hives amoxicillin Allergy Intermediate HIVES/FACIAL Verified 03/22/21 15:19 SWELLING clavulanic acid Allergy Intermediate HIVES/FACIAL Verified 03/22/21 15:19 SWELLING lisinopril Allergy Intermediate HIVES Verified 03/22/21 15:19 acetaminophen AdvReac Mild NAUSEA Verified 03/22/21 15:19 albuterol AdvReac Mild proair Verified 03/22/21 15:19 "trouble taking breaths" Fish Containing Products AdvReac Unknown Unknown Verified 03/22/21 15:19 Home Meds Home Medications Medication Instructions Recorded Confirmed nitroglycerin 0.4 mg sublingual 0.4 mg SUBLINGUAL UD PRN 04/24/19 03/22/21 tablet (Nitrostat) cholecalciferol (vitamin D3) 50 50 mcg PO BID 10/04/19 03/22/21 mcg (2,000 unit) tablet (Vitamin D3) isosorbide mononitrate 30 mg See Rx Instructions PO DAILY tab 03/22/21 03/22/21 tablet,extended release 24 hr Previous Rx's Medication Instructions Recorded albuterol sulfate 90 mcg/actuation 1 inh INHALATION QID #8.5 g 12/09/20 aerosol inhaler aspirin 81 mg tablet,delayed 81 mg PO DAILY #90 tab 12/16/20 release (Aspirin Low Dose) atorvastatin 10 mg tablet 10 mg PO DAILY #90 tab 12/16/20 albuterol sulfate 2.5 mg INHALATION Q6H #15 ml 02/21/21 esomeprazole magnesium 20 mg 40 mg PO BID #60 cap 02/21/21 capsule,delayed release (Nexium) metoprolol succinate 100 mg 100 mg PO BID #60 tab 02/21/21 tablet,extended release 24 hr sacubitril 97 mg-valsartan 103 mg 1 tab PO BID #60 tab 02/21/21 tablet (Entresto) spironolactone 25 mg tablet 75 mg PO QAM #90 tab 02/21/21 (Aldactone) torsemide 20 mg tablet 40 mg PO BID #60 tab 02/26/21 alcohol swabs (Alcohol Pads) 4 pad TOPICAL DAILY 90 Days #400 ea 03/22/21 clotrimazole 1 % topical cream 1 applic TOPICAL BID #45 g 03/22/21 dulaglutide 3 mg/0.5 mL 3 mg SUBCUT WK #2 ml 03/22/21 subcutaneous pen injector insulin lispro protamine-lispro 40 unit SUBCUT BID 30 Days #24 ml 03/22/21 100 unit/mL (50-50) subcutaneous pen (Humalog Mix 50-50 KwikPen) Symbicort 160 mcg-4.5 2 inh INHALATION BID #10.2 g NS 05/04/21 mcg/actuation HFA aerosol inhaler (budesonide-formoterol) Results & Data (ED) Vital Signs Vital Signs - 24 hr 05/21/21 02:33 05/21/21 03:06 05/21/21 03:13 Temperature 37.2 C Temperature Source Oral Pulse Rate 121 H 101 H Pulse Rate from SpO2 Sensor 101 H Respiratory Rate 18 24 Respiratory Effort / Characteristics Short of Breath Respiratory Depth Normal Blood Pressure 193/115 H Blood Pressure Mean 141 Blood Pressure Position Sitting Pulse Oximetry 98 96 98 Oxygen Delivery Method Nasal Cannula Nasal Cannula Oxygen Flow Rate 5 5 Sepsis Recent Fever Within 48 Hours No Sepsis New/Unexplained Change in Mental Status N/A Sepsis Action Taken by Nursing No Action Required 05/21/21 03:15 05/21/21 03:30 05/21/21 03:31 Temperature Temperature Source Pulse Rate 102 H 102 H 96 H Pulse Rate from SpO2 Sensor 101 H 103 H 97 H Respiratory Rate 18 19 27 H Respiratory Effort / Characteristics Respiratory Depth Blood Pressure 163/121 H Blood Pressure Mean 135 Blood Pressure Position Pulse Oximetry 99 93 95 Oxygen Delivery Method Oxygen Flow Rate Sepsis Recent Fever Within 48 Hours Sepsis New/Unexplained Change in Mental Status Sepsis Action Taken by Nursing 05/21/21 03:45 05/21/21 04:00 05/21/21 04:15 Temperature Temperature Source Pulse Rate 94 H 92 H 88 Pulse Rate from SpO2 Sensor 94 H 93 H 88 Respiratory Rate 25 H 18 23 Respiratory Effort / Characteristics Respiratory Depth Blood Pressure 162/117 H Blood Pressure Mean 132 Blood Pressure Position Pulse Oximetry 97 98 97 Oxygen Delivery Method Oxygen Flow Rate Sepsis Recent Fever Within 48 Hours Sepsis New/Unexplained Change in Mental Status Sepsis Action Taken by Nursing 05/21/21 04:30 05/21/21 04:53 05/21/21 05:00 Temperature Temperature Source Pulse Rate 88 Pulse Rate from SpO2 Sensor 91 H 92 H 89 Respiratory Rate 16 Respiratory Effort / Characteristics Respiratory Depth Blood Pressure 171/111 H 155/108 H Blood Pressure Mean 131 123 Blood Pressure Position Pulse Oximetry 96 100 98 Oxygen Delivery Method Nasal Cannula Oxygen Flow Rate 5 Sepsis Recent Fever Within 48 Hours Sepsis New/Unexplained Change in Mental Status Sepsis Action Taken by Nursing 05/21/21 05:15 Temperature Temperature Source Pulse Rate Pulse Rate from SpO2 Sensor 85 Respiratory Rate Respiratory Effort / Characteristics Respiratory Depth Blood Pressure Blood Pressure Mean Blood Pressure Position Pulse Oximetry 98 Oxygen Delivery Method Oxygen Flow Rate Sepsis Recent Fever Within 48 Hours Sepsis New/Unexplained Change in Mental Status Sepsis Action Taken by Nursing Laboratory Data Result diagrams: 05/21/21 Unknown 05/21/21 Unknown Lab Results 05/21/21 05/21/21 05/21/21 Range/Units Unknown Unknown Unknown WBC 7.93 (4.8-10.8) K/uL RBC 5.48 (4.7-6.1) M/uL Hgb 15.2 (14.0-18.0) g/dL Hct 44.7 (42-52) % MCV 81.6 (80-100) fL MCH 27.7 (25-34) pg MCHC 34.0 (32-36) g/dL RDW Std Deviation 47.8 H (36.4-46.3) fL RDW Coeff of Zoltan 15.9 H (11.5-14.5) % Plt Count 183 (130-400) K/uL MPV 10.4 (7.4-10.4) fL Immature Gran % (Auto) 0.3 % Neut % (Auto) 67.0 % Lymph % (Auto) 24.7 % Gilchrist % (Auto) 6.8 % Eos % (Auto) 1.1 % Baso % (Auto) 0.1 % Neut # (Auto) 5.31 (1.4-6.5) K/uL Lymph # (Auto) 1.96 (1.2-3.4) K/uL Gilchrist # (Auto) 0.54 (0.11-0.59) K/uL Eos # (Auto) 0.09 (0-0.5) K/uL Baso # (Auto) 0.01 (0-0.2) K/uL Immature Gran # (Auto) 0.02 (0.00-0.02) K/uL PT 10.9 (9.0-12.0) Seconds INR 1.0 (0.9-1.1) APTT 28.4 (21.0-31.0) Seconds PTT Ratio 1.0 Sodium 135 L (136-145) mmol/L Potassium 4.0 (3.5-5.1) mmol/L Chloride 101 (98-107) mmol/L Carbon Dioxide 25 (21-32) mmol/L Anion Gap 9 (3-11) BUN 13 (6-23) mg/dl Creatinine 0.90 (0.6-1.4) mg/dl Est Cr Clr Drug Dosing 160.1 ml/min Est GFR ( Amer) 120.0 ml/min Est GFR (Non-Af Amer) 103.5 ml/min BUN/Creatinine Ratio 14.4 (10-20) Glucose 215 H (70-99(Fasting)) mg/dl Calcium 9.1 (8.5-10.1) mg/dl Total Bilirubin 0.7 (0.2-1.0) mg/dl AST 16 (13-39) U/L ALT 12 (7-52) U/L Alkaline Phosphatase 92 (34-104) U/L Troponin I 0.03 (0-0.04) ng/ml Total Protein 7.7 (6.0-8.3) gm/dl Albumin 4.0 (3.4-5.0) gm/dl Globulin 3.7 (2.5-4.0) gm/dl Albumin/Globulin Ratio 1.1 (0.9-2) Lipase 15 (11-82) U/L Administered Medications Discontinued Medications Ioversol (Optiray 320 125ml) 120 ml IV ONCE ONE Stop: 05/21/21 04:56 Last Admin: 05/21/21 04:46 Dose: 120 ml Documented by: [id number] Discharge Plan Visit Data Chief Complaint: Chest Pain Stated Complaint: CHEST PAIN ED Provider: Cleveland Mccarty Discharge Problem: SBO (small bowel obstruction) Forms Stand Alone Forms: [facility] Prescriptions Prescriptions: No Action aspirin [Aspirin Low Dose] 81 mg tablet,delayed release (DR/EC) 81 mg PO DAILY Qty: 90 RF: 3 atorvastatin 10 mg tablet 10 mg PO DAILY Qty: 90 RF: 3 budesonide-formoterol [Symbicort] 160-4.5 mcg/actuation HFA aerosol inhaler 2 inh inhalation BID Qty: 10.2 RF: 2 albuterol sulfate 90 mcg/actuation HFA aerosol inhaler 1 inh inhalation QID Qty: 8.5 RF: 2 Trulicity 3 mg/0.5 mL pen injector 3 mg SUBCUT WK Qty: 2 RF: 5 alcohol swabs [Alcohol Pads] Pads, Medicated 4 pad topical DAILY 90 Days Qty: 400 RF: 0 spironolactone [Aldactone] 25 mg tablet 75 mg PO QAM Qty: 90 RF: 5 Entresto 97-103 mg tablet 1 tab PO BID Qty: 60 RF: 5 metoprolol succinate 100 mg tablet extended release 24 hr 100 mg PO BID Qty: 60 RF: 5 esomeprazole magnesium [Nexium] 20 mg capsule,delayed release(DR/EC) 40 mg PO BID Qty: 60 RF: 5 albuterol sulfate 2.5 mg /3 mL (0.083 %) solution for nebulization 2.5 mg inhalation Q6H Qty: 15 RF: 2 clotrimazole 1 % cream 1 applic topical BID Qty: 45 RF: 0 Humalog Mix 50-50 KwikPen 100 unit/mL (50-50) insulin pen 40 unit subcut BID 30 Days Qty: 24 RF: 5 nitroglycerin [Nitrostat] 0.4 mg tablet, sublingual 0.4 mg sublingual UD PRN (Reason: Chest Pain) RF: 0 cholecalciferol (vitamin D3) [Vitamin D3] 50 mcg (2,000 unit) Tablet 50 mcg PO BID RF: 0 torsemide 20 mg tablet 40 mg PO BID Qty: 60 RF: 5 isosorbide mononitrate 30 mg tablet extended release 24 hr See Rx Instructions PO DAILY RF: 0 Referrals Referrals: Richa Burr CRNP [Primary Care Provider] -
[2021-05-21 03:36] LABS: Basophils # (auto) 0.01 K/uL (0-0.2); Basophils % (auto) 0.1 %; Eosinophils # (auto) 0.09 K/uL (0-0.5); Eosinophils % (auto) 1.1 %; Hematocrit (blood only) 44.7 % (42-52); Hemoglobin 15.2 g/dL (14.0-18.0); Immature Granulocytes # (auto) 0.02 K/uL (0.00-0.02); Immature Granulocytes % (auto) 0.3 %; Lymphocytes # (auto) 1.96 K/uL (1.2-3.4); Lymphocytes % (auto) 24.7 %; Mean Corpuscular Hemoglobin 27.7 pg (25-34); Mean Corpuscular Volume 81.6 fL (80-100); Mean Platelet Volume 10.4 fL (7.4-10.4); Monocytes # (auto) 0.54 K/uL (0.11-0.59); Monocytes % (auto) 6.8 %; Neutrophils # (auto) 5.31 K/uL (1.4-6.5); Platelet Count 183 K/uL (130-400); RDW Coefficient of Variation 15.9 % (11.5-14.5); RDW Standard Deviation 47.8 fL (36.4-46.3); Red Blood Count 5.48 M/uL (4.7-6.1); White Blood Count 7.93 K/uL (4.8-10.8)
[2021-05-21 03:42] LABS: Partial Thromboplastin Time 28.4 Seconds (21.0-31.0); Prothrombin Time 10.9 Seconds (9.0-12.0)
[2021-05-21 04:09] LABS: Troponin I 0.03 ng/ml (0-0.04)
[2021-05-21 04:11] LABS: Albumin Globulin Ratio 1.1 (0.9-2); BUN Creatinine Ratio 14.4 (10-20); Bilirubin,Total 0.7 mg/dl (0.2-1.0); Calcium 9.1 mg/dl (8.5-10.1); Creatinine Clr Calc Pharmacy 160.1 ml/min; Est GFR (Non-African American) 103.5 ml/min; Globulin 3.7 gm/dl (2.5-4.0); Total Protein 7.7 gm/dl (6.0-8.3)
[2021-05-21] MEDS ORDERED: OPTIRAY 320 125ml IV ONE (04:55)
--- NOTE | 2021-05-21 06:00 | History & Physical Report ---
Date of Service May 21, 2021 History of Present Illness Primary Care Provider: CM Hitchcock Allergies Allergy/AdvReac Type Severity Reaction Status Date / Time ceftriaxone Allergy Severe SHORTNESS Verified 03/22/21 15:19 OF BREATH lidocaine Allergy Severe SHORTNESS Verified 03/22/21 15:19 OF BREATH, diaphoretic, hives procaine Allergy Severe SHORTNESS Verified 03/22/21 15:19 OF BREATH, diaphoretic, hives amoxicillin Allergy Intermediate HIVES/FACIAL Verified 03/22/21 15:19 SWELLING clavulanic acid Allergy Intermediate HIVES/FACIAL Verified 03/22/21 15:19 SWELLING lisinopril Allergy Intermediate HIVES Verified 03/22/21 15:19 acetaminophen AdvReac Mild NAUSEA Verified 03/22/21 15:19 albuterol AdvReac Mild proair Verified 03/22/21 15:19 "trouble taking breaths" Fish Containing Products AdvReac Unknown Unknown Verified 03/22/21 15:19 Home Medications Medication Instructions Recorded Confirmed Type nitroglycerin 0.4 mg sublingual 0.4 mg SUBLINGUAL UD PRN 04/24/19 03/22/21 History tablet (Nitrostat) cholecalciferol (vitamin D3) 50 50 mcg PO BID 10/04/19 03/22/21 History mcg (2,000 unit) tablet (Vitamin D3) albuterol sulfate 90 mcg/actuation 1 inh INHALATION QID #8.5 g 12/09/20 03/22/21 Rx aerosol inhaler aspirin 81 mg tablet,delayed 81 mg PO DAILY #90 tab 12/16/20 03/22/21 Rx release (Aspirin Low Dose) atorvastatin 10 mg tablet 10 mg PO DAILY #90 tab 12/16/20 03/22/21 Rx albuterol sulfate 2.5 mg INHALATION Q6H #15 ml 02/21/21 03/22/21 Rx esomeprazole magnesium 20 mg 40 mg PO BID #60 cap 02/21/21 03/22/21 Rx capsule,delayed release (Nexium) metoprolol succinate 100 mg 100 mg PO BID #60 tab 02/21/21 03/22/21 Rx tablet,extended release 24 hr sacubitril 97 mg-valsartan 103 mg 1 tab PO BID #60 tab 02/21/21 03/22/21 Rx tablet (Entresto) spironolactone 25 mg tablet 75 mg PO QAM #90 tab 02/21/21 03/22/21 Rx (Aldactone) torsemide 20 mg tablet 40 mg PO BID #60 tab 02/26/21 03/22/21 Rx alcohol swabs (Alcohol Pads) 4 pad TOPICAL DAILY 90 Days #400 ea 03/22/21 03/22/21 Rx clotrimazole 1 % topical cream 1 applic TOPICAL BID #45 g 03/22/21 03/22/21 Rx dulaglutide 3 mg/0.5 mL 3 mg SUBCUT WK #2 ml 03/22/21 03/22/21 Rx subcutaneous pen injector insulin lispro protamine-lispro 40 unit SUBCUT BID 30 Days #24 ml 03/22/21 03/22/21 Rx 100 unit/mL (50-50) subcutaneous pen (Humalog Mix 50-50 KwikPen) isosorbide mononitrate 30 mg See Rx Instructions PO DAILY tab 03/22/21 03/22/21 History tablet,extended release 24 hr Symbicort 160 mcg-4.5 2 inh INHALATION BID #10.2 g NS 05/04/21 Rx mcg/actuation HFA aerosol inhaler (budesonide-formoterol) Past Med/Surg History Medical History Bacteremia Chronic respiratory failure Dilatation of thoracic aorta Fatty liver Hearing loss of both ears Housing instability, currently housed, at risk for homelessness Hx of local infection of skin and subcutaneous tissue Iliac aneurysm Lung nodule NICM (nonischemic cardiomyopathy) Pt admitted for elective ICD. Underwent procedure without any complications monitored over night and discharged home. 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 Heart disease Myocardial infarction Mother , age 67 of a ruptured neck vessel Sudden Other Depression Lung disease No pertinent family history Denies family history of Ovarian cancer Prostate cancer Breast cancer Colorectal cancer Social History Smoking Status: Never smoker Tobacco Type: Cigarettes Age Started Using Tobacco: 14; Age Quit Using Tobacco: 18; Cigarettes Per Day: 40-50; Second Hand Exposure: No; Hx Alcohol Use: No Hx Substance Use: No Preferred Language: St [place] Communication Ability: Effective Visual Impairment: No Limitations Hearing Ability: Normal Route Cdl Driver Required: No Beliefs That Will Affect Care: None marital status: Current Living Situation: Spouse current occupational status: unemployed How many Children do You have: 0 Feels Safe at Home: Yes Childhood Exposure to Second-Hand Smoke: Yes Dental Care, Regularly: Yes Physical Activity Frequency: Does not Exercise Assistive Devices: Oxygen - Continuous, Walker and Wheelchair Results & Data Results & Data ([facility]) Vital Signs (Past 12 Hours) Vital Signs Temp Pulse Resp BP Pulse Ox 05/21/21 05:15 98 05/21/21 05:00 155/108 H 98 05/21/21 04:53 100 05/21/21 04:30 88 16 171/111 H 96 05/21/21 04:15 88 23 97 05/21/21 04:00 92 H 18 162/117 H 98 05/21/21 03:45 94 H 25 H 97 05/21/21 03:31 96 H 27 H 163/121 H 95 05/21/21 03:30 102 H 19 93 05/21/21 03:15 102 H 18 99 05/21/21 03:13 101 H 24 98 05/21/21 03:06 96 05/21/21 02:33 37.2 C 121 H 18 193/115 H 98
--- NOTE | 2021-05-21 06:02 | Surgery Consultation ---
Date of Consultation May 21, 2021 Assessment & Plan (1) Small bowel obstruction: The patient is being admitted on the hospitalist service. We recommend proceeding as follows: Implement n.p.o. status. I discussed with the patient that he may require NG tube for decompression if he has worsening of his abdominal pain, worsening of his abdominal exam, or further nausea vomiting. As it has been approximately 9 hours since his most recent emesis I feel we can hold on this modality for the present time however. Cautious hydration with IV fluids. This may prove challenging due to the patient's known low ejection fraction Provide antiemetics Provide analgesics There appears to be an inflammatory process in patient's small bowel which may be causing his small bowel obstruction. If this persists a gastroenterology consult may be prudent to obtain Would be preferable to treat this in a conservative manner particularly in light of patient's numerous medical comorbidities Supervising Physician Co-Signing Physician Notes Patient seen and examined, labs and imaging reviewed, agree with above. 45-year-old morbidly obese male with known cardiomyopathy with 25% ejection fraction presents with abdominal pain. Is having nausea, vomiting, midepigastric abdominal pain, and loose stools. He has not had symptoms like this before. Only prior surgical history is laparoscopic cholecystectomy. No hernias. On exam he is afebrile stable vitals. Abdomen tender to palpation in the midepigastrium, no guarding or rebound. Labs normal. CT shows dilated loops of small bowel with some thickened areas of jejunum, and a partial bowel obstruction. Given his CT findings, this may represent an enteritis or inflammatory problem such as Crohn's disease. Would recommend GI consultation. May maintain conservative treatment for now, no NG tube as patient not actively vomiting. If surgical intervention were entertained, given his cardiomyopathy we would recommend transfer to a tertiary facility. Surgery will follow. History of Present Illness Reason for Consultation: Small bowel obstruction History of Present Illness This is a 45-year-old male with a known history of cardiomyopathy and ejection fraction of 25%. He presents to the emergency department secondary to nausea vomiting and upper abdominal pain x4 days. He says he has not been able to keep much oral intake down. He denies any fevers, shakes, chills. He notes that he has been having bowel movements however they have been mixed between solid and liquid over the same timeframe. Does note that he has had abdominal surgery in the form of a cholecystectomy in the past. With his current presentation he does not note any modifying factors or radiation of the pain. He denies any hematemesis or bloody bowel movements. He notes that his most recent emesis was approximately 9 hours ago. Denies any close contacts of being ill or sick. Today in the emergency department the patient had labs and imaging which I independently reviewed. CBC revealed white blood cell count, hemoglobin, hematocrit, and platelet count were all within the normal range. History profile showed sodium was 135. Potassium, BUN, and creatinine were normal. His lipase and LFTs were nonelevated. A Covid test has been ordered and is pending. A chest x-ray showed evidence of pulmonary vascular congestion. CT scan of the abdomen pelvis showed findings concerning for inflammatory disease of the jejunum resulting in upstream dilatation of the small bowel resulting in a possible small bowel obstruction. At the time of my interview the patient was resting in bed. He was in no distress. Allergies Allergy/AdvReac Type Severity Reaction Status Date / Time ceftriaxone Allergy Severe SHORTNESS Verified 03/22/21 15:19 OF BREATH lidocaine Allergy Severe SHORTNESS Verified 03/22/21 15:19 OF BREATH, diaphoretic, hives procaine Allergy Severe SHORTNESS Verified 03/22/21 15:19 OF BREATH, diaphoretic, hives amoxicillin Allergy Intermediate HIVES/FACIAL Verified 03/22/21 15:19 SWELLING clavulanic acid Allergy Intermediate HIVES/FACIAL Verified 03/22/21 15:19 SWELLING lisinopril Allergy Intermediate HIVES Verified 03/22/21 15:19 acetaminophen AdvReac Mild NAUSEA Verified 03/22/21 15:19 albuterol AdvReac Mild proair Verified 03/22/21 15:19 "trouble taking breaths" Fish Containing Products AdvReac Unknown Unknown Verified 03/22/21 15:19 Home Medications Medication Instructions Recorded Confirmed Type nitroglycerin 0.4 mg sublingual 0.4 mg SUBLINGUAL UD PRN 04/24/19 05/21/21 History tablet (Nitrostat) cholecalciferol (vitamin D3) 50 50 mcg PO BID 10/04/19 05/21/21 History mcg (2,000 unit) tablet (Vitamin D3) albuterol sulfate 90 mcg/actuation 1 inh INHALATION QID #8.5 g 12/09/20 05/21/21 Rx aerosol inhaler aspirin 81 mg tablet,delayed 81 mg PO DAILY #90 tab 12/16/20 05/21/21 Rx release (Aspirin Low Dose) atorvastatin 10 mg tablet 10 mg PO DAILY #90 tab 12/16/20 05/21/21 Rx albuterol sulfate 2.5 mg INHALATION Q6H #15 ml 02/21/21 05/21/21 Rx esomeprazole magnesium 20 mg 40 mg PO BID #60 cap 02/21/21 05/21/21 Rx capsule,delayed release (Nexium) metoprolol succinate 100 mg 100 mg PO BID #60 tab 02/21/21 05/21/21 Rx tablet,extended release 24 hr sacubitril 97 mg-valsartan 103 mg 1 tab PO BID #60 tab 02/21/21 05/21/21 Rx tablet (Entresto) spironolactone 25 mg tablet 75 mg PO QAM #90 tab 02/21/21 05/21/21 Rx (Aldactone) torsemide 20 mg tablet 40 mg PO BID #60 tab 02/26/21 05/21/21 Rx alcohol swabs (Alcohol Pads) 4 pad TOPICAL DAILY 90 Days #400 ea 03/22/21 03/22/21 Rx clotrimazole 1 % topical cream 1 applic TOPICAL BID #45 g 03/22/21 05/21/21 Rx dulaglutide 3 mg/0.5 mL 3 mg SUBCUT WK #2 ml 03/22/21 05/21/21 Rx subcutaneous pen injector insulin lispro protamine-lispro 40 unit SUBCUT BID 30 Days #24 ml 03/22/21 05/21/21 Rx 100 unit/mL (50-50) subcutaneous pen (Humalog Mix 50-50 KwikPen) isosorbide mononitrate 30 mg See Rx Instructions PO DAILY tab 03/22/21 05/21/21 History tablet,extended release 24 hr Symbicort 160 mcg-4.5 2 inh INHALATION BID #10.2 g NS 05/04/21 05/21/21 Rx mcg/actuation HFA aerosol inhaler (budesonide-formoterol) Patient History Medical History Bacteremia Chronic respiratory failure Dilatation of thoracic aorta Fatty liver Hearing loss of both ears Housing instability, currently housed, at risk for homelessness Hx of local infection of skin and subcutaneous tissue Iliac aneurysm Lung nodule NICM (nonischemic cardiomyopathy) Pt admitted for elective ICD. Underwent procedure without any complications monitored over night and discharged home. Nonproliferative retinopathy due to secondary diabetes Obstructive sleep apnea Umbilical hernia Vitamin D insufficiency Previously deficient, taking Vit D supplementation Surgical History History of carpal tunnel surgery History of cholecystectomy S/P tonsillectomy Family History Father , age 57 of an [place]. Heart disease Myocardial infarction Mother , age 67 of a ruptured neck vessel Sudden Other Depression Lung disease No pertinent family history Denies family history of Ovarian cancer Prostate cancer Breast cancer Colorectal cancer Social History Smoking Status: Never smoker Tobacco Type: Cigarettes Age Started Using Tobacco: 14; Age Quit Using Tobacco: 18; Cigarettes Per Day: 40-50; Second Hand Exposure: No; Hx Alcohol Use: No Hx Substance Use: No Preferred Language: Maori Communication Ability: Effective Visual Impairment: No Limitations Hearing Ability: Normal Forestry Aide Required: No Beliefs That Will Affect Care: None marital status: Current Living Situation: Spouse current occupational status: unemployed How many Children do You have: 0 Feels Safe at Home: Yes Childhood Exposure to Second-Hand Smoke: Yes Dental Care, Regularly: Yes Physical Activity Frequency: Does not Exercise Assistive Devices: Oxygen - Continuous, Walker and Wheelchair Review of Systems Constitutional: no fever and no chills Eyes: no diplopia Ear, Nose, Mouth, Throat: no ear pain Respiratory: + dyspnea (Chronic condition) Cardiovascular: no chest pain Gastrointestinal: + abdominal pain, + nausea, + vomiting and + diarrhea/loose stools Genitourinary: no dysuria Musculoskeletal: no back pain Integumentary: no rash Neurologic: no localized weakness Physical Exam Constitutional: WD/WN, vitals as above + obese Eyes: no conjunctival abnormality ENMT: Ears: no hearing impairment and no external ear abnormality Mouth: no oropharynx abnormality Neck: trachea midline Respiratory: normal respiratory effort; no respiratory distress and no labored breathing Breath sounds are decreased at the bases potentially due to patient's large body habitus Cardiovascular: Rate/Rhythm: regular rate and regular rhythm Gastrointestinal (Abdomen): Abdomen is rotund. There is mild distention noted. There is no rebound tenderness or guarding but patient did have pain with palpation in a generalized fashion. I was unable to appreciate any hernias. Musculoskeletal: No calf tenderness Skin: no rashes Neurologic: moves all extremities Psychiatric: A+Ox3, euthymic affect Results & Data ([facility]) Vital Signs (Past 12 Hours) Vital Signs Temp Pulse Resp BP Pulse Ox 05/21/21 05:15 98 05/21/21 05:00 155/108 H 98 05/21/21 04:53 100 05/21/21 04:30 88 16 171/111 H 96 05/21/21 04:15 88 23 97 05/21/21 04:00 92 H 18 162/117 H 98 05/21/21 03:45 94 H 25 H 97 05/21/21 03:31 96 H 27 H 163/121 H 95 05/21/21 03:30 102 H 19 93 05/21/21 03:15 102 H 18 99 05/21/21 03:13 101 H 24 98 05/21/21 03:06 96 05/21/21 02:33 37.2 C 121 H 18 193/115 H 98 PG Care Time/CCT Total # of Minutes Spent Total Time Spent with Patient: Total time spent is greater than 50% in coordination of care (as documented) at patient's floor/unit and/or counseling patient: Coding Level of Care Code 75558 Inpt Consult Level 5 Diagnoses Small bowel obstruction K56.609
--- NOTE | 2021-05-21 06:42 | History & Physical Report ---
Date of Service May 21, 2021 Assessment & Plan (1) Small bowel obstruction: Plan: 45yo male with 4 days of mid abdominal pain, nausea/vomiting, liquid stools. CT findings suggestive of SBO as well as ileal inflammatory changes. ?Gastroenteritis? Possibly IBD -Check ESR CRP -Maintain NPO, bowel rest -Gentle IVF - LR at 75ml/hr x 1 liter -Electrolyte repletion - check Mg and PO4 now -General Surgery consultation appreciated -Zofran as needed for nausea -Morphine as needed for pain (2) Diabetes mellitus type II, uncontrolled: Plan: Poorly controlled. Last [id number]=44.5 on 03/12/21 -Lantus 9u BID with ISS -Continue Trulicity (3) Morbid obesity with BMI of 50.0-59.9, adult: Plan: Encourage lifestyle modification (4) Hypertension: Plan: Blood pressure elevated 155/108 -Continue Entresto, Metoprolol, Spironolactone, Isosorbide -Monitor (5) NICM (nonischemic cardiomyopathy): Plan: Patient appears fairly well compensated. Cautious use of fluids as above. -Daily weights -Hold Torsemide -Continue Spironolactone -Continue Entresto -Continue Metoprolol -Continue Isosorbide (6) Obstructive sleep apnea: Plan: CPAP qHS while inpatient Encourage outpatient use Plan: F/E/N - LR at 75mL/hr x 1 liter, monitor electroltyes and replete as needed, NPO Ppx - Lovenox 40BID Code - Full Dispo - Admit to medical History of Present Illness Chief Complaint: abdominal pain Primary Care Provider: CM Hitchcock Alok Huff is a 45yo male with NICM EF of 25% presenting with abdominal pain ongoing x 4 days. Pain is located in upper abdomen with bandlike radiation. It is worse with meals. He has had nausea with vomiting, po intolerance for the last 5 days as well. He has also had liquid stools, non-bloody/non-mucoid. His daughter was recently sick with a URI, otherwise, no sick contacts. Patient denies fever, chills, chest pain, cough, SOB. ER Course: Imaging of the abdomen suspicious for SBO as well as ileal thickening. Admission requested. Allergies Allergy/AdvReac Type Severity Reaction Status Date / Time ceftriaxone Allergy Severe SHORTNESS Verified 03/22/21 15:19 OF BREATH lidocaine Allergy Severe SHORTNESS Verified 03/22/21 15:19 OF BREATH, diaphoretic, hives procaine Allergy Severe SHORTNESS Verified 03/22/21 15:19 OF BREATH, diaphoretic, hives amoxicillin Allergy Intermediate HIVES/FACIAL Verified 03/22/21 15:19 SWELLING clavulanic acid Allergy Intermediate HIVES/FACIAL Verified 03/22/21 15:19 SWELLING lisinopril Allergy Intermediate HIVES Verified 03/22/21 15:19 acetaminophen AdvReac Mild NAUSEA Verified 03/22/21 15:19 albuterol AdvReac Mild proair Verified 03/22/21 15:19 "trouble taking breaths" Fish Containing Products AdvReac Unknown Unknown Verified 03/22/21 15:19 Home Medications Medication Instructions Recorded Confirmed Type nitroglycerin 0.4 mg sublingual 0.4 mg SUBLINGUAL UD PRN 04/24/19 05/21/21 History tablet (Nitrostat) cholecalciferol (vitamin D3) 50 50 mcg PO BID 10/04/19 05/21/21 History mcg (2,000 unit) tablet (Vitamin D3) albuterol sulfate 90 mcg/actuation 1 inh INHALATION QID #8.5 g 12/09/20 05/21/21 Rx aerosol inhaler aspirin 81 mg tablet,delayed 81 mg PO DAILY #90 tab 12/16/20 05/21/21 Rx release (Aspirin Low Dose) atorvastatin 10 mg tablet 10 mg PO DAILY #90 tab 12/16/20 05/21/21 Rx albuterol sulfate 2.5 mg INHALATION Q6H #15 ml 02/21/21 05/21/21 Rx esomeprazole magnesium 20 mg 40 mg PO BID #60 cap 02/21/21 05/21/21 Rx capsule,delayed release (Nexium) metoprolol succinate 100 mg 100 mg PO BID #60 tab 02/21/21 05/21/21 Rx tablet,extended release 24 hr sacubitril 97 mg-valsartan 103 mg 1 tab PO BID #60 tab 02/21/21 05/21/21 Rx tablet (Entresto) spironolactone 25 mg tablet 75 mg PO QAM #90 tab 02/21/21 05/21/21 Rx (Aldactone) torsemide 20 mg tablet 40 mg PO BID #60 tab 02/26/21 05/21/21 Rx alcohol swabs (Alcohol Pads) 4 pad TOPICAL DAILY 90 Days #400 ea 03/22/21 03/22/21 Rx clotrimazole 1 % topical cream 1 applic TOPICAL BID #45 g 03/22/21 05/21/21 Rx dulaglutide 3 mg/0.5 mL 3 mg SUBCUT WK #2 ml 03/22/21 05/21/21 Rx subcutaneous pen injector insulin lispro protamine-lispro 40 unit SUBCUT BID 30 Days #24 ml 03/22/21 05/21/21 Rx 100 unit/mL (50-50) subcutaneous pen (Humalog Mix 50-50 KwikPen) isosorbide mononitrate 30 mg See Rx Instructions PO DAILY tab 03/22/21 05/21/21 History tablet,extended release 24 hr Symbicort 160 mcg-4.5 2 inh INHALATION BID #10.2 g NS 05/04/21 05/21/21 Rx mcg/actuation HFA aerosol inhaler (budesonide-formoterol) Past Med/Surg History Medical History Bacteremia Chronic respiratory failure Dilatation of thoracic aorta Fatty liver Hearing loss of both ears Housing instability, currently housed, at risk for homelessness Hx of local infection of skin and subcutaneous tissue Iliac aneurysm Lung nodule NICM (nonischemic cardiomyopathy) Pt admitted for elective ICD. Underwent procedure without any complications monitored over night and discharged home. 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 Heart disease Myocardial infarction Mother , age 67 of a ruptured neck vessel Sudden Other Depression Lung disease No pertinent family history Denies family history of Ovarian cancer Prostate cancer Breast cancer Colorectal cancer Social History Smoking Status: Never smoker Tobacco Type: Cigarettes Age Started Using Tobacco: 14; Age Quit Using Tobacco: 18; Cigarettes Per Day: 40-50; Second Hand Exposure: No; Hx Alcohol Use: No Hx Substance Use: No Preferred Language: Uzbek Communication Ability: Effective Visual Impairment: No Limitations Hearing Ability: Normal Labeling Specialist Required: No Beliefs That Will Affect Care: None marital status: Current Living Situation: Spouse current occupational status: unemployed How many Children do You have: 0 Feels Safe at Home: Yes Childhood Exposure to Second-Hand Smoke: Yes Dental Care, Regularly: Yes Physical Activity Frequency: Does not Exercise Assistive Devices: Oxygen - Continuous, Walker and Wheelchair Review of Systems Review of Systems: All systems reviewed & are unremarkable except as noted in HPI & below Physical Exam Physical Exam: General: patient resting comfortably, NAD, non-toxic in appearance, AA&O x 4 Skin: erythematous regions on lower abdomen HEENT: NC/AT, PERRL, EOMI, anicteric sclera, conjunctiva without injection, external ear normal to inspection and nontender, nares patent, moist mucus membranes, dentition intact, no oropharyngeal lesions, neck supple, trachea midline, no LAD, no thyromegaly, no JVD Heart: +S1/S2, regular, no m/r/g Lungs: equal air entry bilaterally, no rales/rhonchi/wheezes Abd: +BS, soft, diffusely tender worst in epigastric region, voluntary guarding, no rebound Ext: warm, 2+ pulses in UE/LE bilaterally, no clubbing/cyanosis, chronic edema Neuro: nonfocal, patient AA&O x 4, speech intact, no facial droop, moving all extremities on command with equal strength 5/5 Results & Data Results & Data ([facility]) Vital Signs (Past 12 Hours) Vital Signs Temp Pulse Resp BP Pulse Ox 05/21/21 05:15 98 05/21/21 05:00 155/108 H 98 05/21/21 04:53 100 05/21/21 04:30 88 16 171/111 H 96 05/21/21 04:15 88 23 97 05/21/21 04:00 92 H 18 162/117 H 98 05/21/21 03:45 94 H 25 H 97 05/21/21 03:31 96 H 27 H 163/121 H 95 05/21/21 03:30 102 H 19 93 05/21/21 03:15 102 H 18 99 05/21/21 03:13 101 H 24 98 05/21/21 03:06 96 05/21/21 02:33 37.2 C 121 H 18 193/115 H 98 Laboratory Results Laboratory Results WBC 7.93 K/uL (4.8-10.8) 05/21/21 Unknown RBC 5.48 M/uL (4.7-6.1) 05/21/21 Unknown Hgb 15.2 g/dL (14.0-18.0) 05/21/21 Unknown Hct 44.7 % (42-52) 05/21/21 Unknown MCV 81.6 fL (80-100) 05/21/21 Unknown MCH 27.7 pg (25-34) 05/21/21 Unknown MCHC 34.0 g/dL (32-36) 05/21/21 Unknown RDW Std Deviation 47.8 fL (36.4-46.3) H 05/21/21 Unknown RDW Coeff of Zoltan 15.9 % (11.5-14.5) H 05/21/21 Unknown Plt Count 183 K/uL (130-400) 05/21/21 Unknown MPV 10.4 fL (7.4-10.4) 05/21/21 Unknown Immature Gran % (Auto) 0.3 % 05/21/21 Unknown Neut % (Auto) 67.0 % 05/21/21 Unknown Lymph % (Auto) 24.7 % 05/21/21 Unknown [place] % (Auto) 6.8 % 05/21/21 Unknown Eos % (Auto) 1.1 % 05/21/21 Unknown Baso % (Auto) 0.1 % 05/21/21 Unknown Neut # (Auto) 5.31 K/uL (1.4-6.5) 05/21/21 Unknown Lymph # (Auto) 1.96 K/uL (1.2-3.4) 05/21/21 Unknown [place] # (Auto) 0.54 K/uL (0.11-0.59) 05/21/21 Unknown Eos # (Auto) 0.09 K/uL (0-0.5) 05/21/21 Unknown Baso # (Auto) 0.01 K/uL (0-0.2) 05/21/21 Unknown Immature Gran # (Auto) 0.02 K/uL (0.00-0.02) 05/21/21 Unknown PT 10.9 Seconds (9.0-12.0) 05/21/21 Unknown INR 1.0 (0.9-1.1) 05/21/21 Unknown APTT 28.4 Seconds (21.0-31.0) 05/21/21 Unknown PTT Ratio 1.0 05/21/21 Unknown Sodium 135 mmol/L (136-145) L 05/21/21 Unknown Potassium 4.0 mmol/L (3.5-5.1) 05/21/21 Unknown Chloride 101 mmol/L (98-107) 05/21/21 Unknown Carbon Dioxide 25 mmol/L (21-32) 05/21/21 Unknown Anion Gap 9 (3-11) 05/21/21 Unknown BUN 13 mg/dl (6-23) 05/21/21 Unknown Creatinine 0.90 mg/dl (0.6-1.4) 05/21/21 Unknown Est Cr Clr Drug Dosing 160.1 ml/min 05/21/21 Unknown Est GFR ( Amer) 120.0 ml/min 05/21/21 Unknown Est GFR (Non-Af Amer) 103.5 ml/min 05/21/21 Unknown BUN/Creatinine Ratio 14.4 (10-20) 05/21/21 Unknown Glucose 215 mg/dl (70-99(Fasting)) H 05/21/21 Unknown Calcium 9.1 mg/dl (8.5-10.1) 05/21/21 Unknown Total Bilirubin 0.7 mg/dl (0.2-1.0) 05/21/21 Unknown AST 16 U/L (13-39) 05/21/21 Unknown ALT 12 U/L (7-52) 05/21/21 Unknown Alkaline Phosphatase 92 U/L (34-104) 05/21/21 Unknown Troponin I 0.03 ng/ml (0-0.04) 05/21/21 Unknown Total Protein 7.7 gm/dl (6.0-8.3) 05/21/21 Unknown Albumin 4.0 gm/dl (3.4-5.0) 05/21/21 Unknown Globulin 3.7 gm/dl (2.5-4.0) 05/21/21 Unknown Albumin/Globulin Ratio 1.1 (0.9-2) 05/21/21 Unknown Lipase 15 U/L (11-82) 05/21/21 Unknown SARS-CoV-2, RNA, NAAT NEGATIVE (NEGATIVE) 05/21/21 05:46 Code Status & VTE Plan VTE Prophylaxis Plan VTE Prophylaxis will be ordered: Yes PG Care Time/CCT Total # of Minutes Spent Total Time Spent with Patient: Total time spent is greater than 50% in coordination of care (as documented) at patient's floor/unit and/or counseling patient: Coding Level of Care Code 35704 Initial Inpt Care Lvl 3 Diagnoses Small bowel obstruction K56.609 Diabetes mellitus type II, uncontrolled E11.65 Glycemic state: with hyperglycemia Morbid obesity with BMI of 50.0-59.9, adult E66.01; Z68.43 Hypertension I10 Hypertension type: unspecified NICM (nonischemic cardiomyopathy) I42.8 Obstructive sleep apnea G47.33 (1) Diabetes mellitus type II, uncontrolled Glycemic state: with hyperglycemia Qualified Code(s): E11.65 - Type 2 diabetes mellitus with hyperglycemia (2) Hypertension Hypertension type: unspecified Qualified Code(s): I10 - Essential (primary) hypertension
--- NOTE | 2021-05-21 07:07 | XRay Report ---
XR chest 1V portable HISTORY: Atypical Chest Pain COMPARISON: Chest 03/11/2021. FINDINGS: No pneumothorax. No pleural effusions. The cardiac silhouette remains moderately enlarged. There is mild central pulmonary vascular congestion without overt edema. No new focal lung consolidat ions to suggest pneumonia. There is a left-sided single lead pacemaker/defibrillator. IMPRESSION: Cardiomegaly with mild central pulmonary vascular congestion without overt edema. ACT 112: Negative or not required by law. Electronically signed by: Andrea Bear M.D. 05/21/2021 7:05 AM
--- NOTE | 2021-05-21 08:39 | CT Scan Report ---
ABDOMEN AND PELVIS CT WITH IV CONTRAST CT DOSE: 2256.49 mGy.cm HISTORY: Upper Abdominal pain, nausea and vomiting x3 days TECHNIQUE: Multiaxial CT images of the abdomen and pelvis were performed following the use of intrave nous contrast. A dose lowering technique was utilized adhering to the principles of ALARA. COMPARISON STUDY: Abdomen and pelvis CT 10/26/2019. FINDINGS: Patchy groundglass densities and mild interlobular septal thickening within the lung bases, right greater than left. No pleural effusions. The heart is mildly enlarged. A pacemaker wire is not ed. Findings favor mild asymmetric pulmonary edema. A mild viral pneumonia could also have a similar appearance. No pneumoperitoneum. No pneumatosis. No fractures within the visualized osseous structure s. Bilateral L5 pars defects are again noted. There is a 7 mm hypodense lesion within the left hepati c lobe in image 153. This is likely too small to characterize. The main portal vein is patent. Prior cholecystectomy. The pancreas, spleen, and adrenal glands unremarkable. Normal caliber abdominal aort a. No retroperitoneal lymphadenopathy. The bladder is not well-distended but appears unremarkable. No pelvic free fluid. There are 2, 9 mm hypodense lesions within the right kidney which are technically too small to characterize but statistically represent cysts. No hydronephrosis. There is normal yousif tamanna appendix. No evidence for acute appendicitis. There is trace fluid within the right lower quadran t adjacent to the appendix. This is of doubtful clinical significance. The colon is decompressed. Mil dly dilated gas and fluid-filled loops of proximal to mid small bowel are seen within the abdomen. Th e distal ileal loops are decompressed. Therefore, this likely represents a partial small bowel obstru ction. Questionable thickened loop of jejunum within the left mid abdomen versus underdistention. A m ild enteritis is not excluded. This may represent a transition point for a partial bowel obstruction as the small bowel loops proximal to this site are distended and fluid-filled. IMPRESSION: 1. Mildly dilated gas and fluid-filled loops of proximal to mid small bowel. The distal ileal loops a re decompressed. Therefore, this favors a partial small bowel obstruction. 2. Questionable thickened loop of jejunum within the left mid abdomen versus underdistention. A mild enteritis is not excluded. This may represent a transition point for the partial bowel obstruction as the small bowel loops proximal to this site are distended and fluid-filled. 3. No hydronephrosis. 4. Cholecystectomy. 5. Normal appendix. 6. Cardiomegaly with interstitial thickening and patchy groundglass densities within the lung bases m ost pronounced on the right. This favors mild asymmetric pulmonary edema. A viral pneumonia could als o have a similar appearance in the appropriate clinical setting. ACT 112: Negative or not required by law. Electronically signed by: Andrea Bear M.D. 05/21/2021 8:36 AM
[2021-05-21] MEDS ORDERED: GLUCOSE 10 TABS/TUBE PO PRN (09:25)
[2021-05-21] MEDS ORDERED: GLUCOSE 40% GEL 15 GM TUBE PO PRN (09:25)
[2021-05-21] MEDS ORDERED: ALBUTEROL HFA 8 GM INHALER INH SCH (09:25)
[2021-05-21] MEDS ORDERED: ASPIRIN 81 MG ECTAB PO SCH (09:25)
[2021-05-21] MEDS ORDERED: ISOSORBIDE MONO EXTENDED REL 60 MG TABCR PO SCH (09:25)
[2021-05-21] MEDS ORDERED: ONDANSETRON INJ 2 MG/ML 2 ML VIAL IV PRN (09:25)
[2021-05-21] MEDS ORDERED: GLUCAGON FOR INJ 1 MG VIAL SQ PRN (09:25)
[2021-05-21] MEDS ORDERED: MoRPHine SULFATE 2 MG/ML CARP IV PRN (09:25)
[2021-05-21] MEDS ORDERED: SPIRONOLACTONE 25 MG TAB PO SCH ×3 (09:25→21:00)
[2021-05-21] MEDS ORDERED: VALSARTAN/SACUBITRIL 103/97MG TAB PO SCH (09:25)
[2021-05-21] MEDS ORDERED: DEXTROSE 50% 50 ML SYRINGE IV PRN (09:25)
[2021-05-21] MEDS ORDERED: METOPROLOL SUCC 50MG EXT REL TAB PO SCH (09:25)
[2021-05-21] MEDS ORDERED: ATORVASTATIN 10 MG TAB PO SCH (09:25)
[2021-05-21] MEDS ORDERED: PANTOprazole 40 MG TAB PO SCH (09:25)
[2021-05-21] MEDS ORDERED: LACTATED RINGER'S 1,000 ML IV SCH (09:25)
[2021-05-21] MEDS ORDERED: CARBOHYDRATES FOR HYPOGLYCEMIA PO PRN (09:25)
[2021-05-21 09:59] LABS: C Reactive Protein < 0.50 mg/dl (0-0.5)
[2021-05-21 10:12] LABS: Magnesium < 0.5 mg/dl (1.7-2.4)
[2021-05-21] MEDS ORDERED: hydrALAZINE HCL 20 MG/ML VIAL IV PRN (10:24)
[2021-05-21] MEDS ORDERED: D5W AND LACTATED RINGERS 1,000 ML IV SCH (10:30)
[2021-05-21] MEDS: ALBUTEROL 0.083% NEBU SOLN 3 ML VIAL INH SCH ×4 (10:33→19:17)
[2021-05-21] MEDS ORDERED: ALBUTEROL HFA 8 GM INHALER INH PRN (10:53)
[2021-05-21] MEDS: MAGNESIUM SULFATE / D5W 1 GM/100 ML BAG IV SCH ×4 (11:16→17:31)
[2021-05-21] MEDS: ENOXAPARIN INJ 40 MG/0.4 ML SYR SQ SCH ×2 (11:19→11:21)
[2021-05-21] MEDS: FLUTICASONE/VILANTEROL 200/25MCG 14 PUFFS/INHALER INH SCH ×2 (11:19→11:21)
[2021-05-21] MEDS: CLOTRIMAZOLE 1% CR 15 GM TUBE TOP SCH ×2 (11:19→21:08)
[2021-05-21] MEDS ORDERED: Nursing to Pharmacy Communication SCH ×2 (11:30→13:15)
[2021-05-21] MEDS: INSULIN ASPART PER UNIT SC SCH ×2 (11:32→11:39)
[2021-05-21] MEDS: INSULIN GLARGINE SOLOSTAR 100 UNITS/ML 3 ML PEN SC SCH ×2 (11:32→21:04)
--- NOTE | 2021-05-21 11:51 | Hospitalist Progress Note ---
Date of Service May 21, 2021 Assessment & Plan (1) Small bowel obstruction: Plan: 45yo male with 4 days of mid abdominal pain, nausea/vomiting, liquid stools. CT findings suggestive of SBO with associated jejunitis - h/o lap viri in the past - reports having EGD in the past (with duodenal ulcer) and colonoscopy (WNL). No h/o IBD - afebrile. Normal WBC count - will continue to treat conservatively (NPO status for bowel rest, antiemetics and IV pain medications as needed) - low threshold to place NGT -- likely needed given his CP (which I suspect is referred pain from abd) but patient refuses. Will obtain KUB to assess stomach distention and determine if really needed but favor that it is - encouraged ambulation - General Surgery Consulted-- appreciate recommendations. Given the jejunitis and concern that there is a transition point in this region, I am concerned that he may not respond conservatively-- continue to follow clinically - would be inclined to obtain a small bowel follow through to further investigate this area (2) Jejunitis: Plan: - there is evidence of mucosal thickening at the jejunum on CT scan - pt has had EGD (multiple) in the past showing ulcers. C.Scope in the past WNL. No h/o ulcerative colitis or Crohn's - not suspicious that this jejunitis is infectious with his normal WBC and afebrile state. No abx at this time - There does appear to be a transition point seen in this region on imaging. Uncertain is there is a stricture here? - Would consider small bowel follow through at some point - Ordered HLA-B27 and Celiac panel - discussed briefly with GI who agrees with plan and will see patient in FU as nothing more to add at this point - Typically on Protonix. Needs GI prophylaxis but with very low mag, will avoid protonix and utilize Pepcid (3) Hypomagnesemia: Plan: - moved to monitored bed. Supplement with IV mag - Uncertain if 2/2 to chronic protonix on board (which has since been changed to Pepcid) (4) Chest pain: Plan: - Code purple called on 05/21 ~1230 - Pt c/o epigastric and LUQ pain with radiation into his chest and pain - Accelerated BP-- improved with SL NTG, Hydralazine. Perhaps this is cont ributing to his CP; although he's tender in the epigastric region and LLQ with distention and a known SOB-- suspect his CP is referral from his SBO - does have a h/o NONISCHEMIC cardiomyopathy. Takes Imdur but for CHF and not angina. At any rate, will cycle out his cardiac enzymes, obtain a repeat EKG in 1 hour and update his echocardiogram - suspect needs NGT-- see above (5) Diabetes mellitus type II, uncontrolled: Plan: Poorly controlled. Last YlmM2H=63.5 on 03/12/21 - continue lantus at reduced dose given NPO status - Regular insulin (given NPO status) via SS (6) Hypertension: Plan: - accelerated BP given NPO status and lack or oral intake - Lopressor scheduled instead of his oral metoprolol and Lasix IV instead of Demedex and PRN hydralazine - will continue topical nitropaste for BP control if needed (7) NICM (nonischemic cardiomyopathy): Plan: h/o mixed systolic and diastolic dysfunction-- EF 20-25 % -Currently patient appears euvolemic -He is n.p.o. on account of his SBO and receiving very gentle IV hydration (for 1L only). We will use his cautiously given his poor EF and risk of acute on compensation -P.o. medications on hold. Take Demedex routine. Transition to IV lasix starting tonight (8) Morbid obesity with BMI of 50.0-59.9, adult: Plan: Encourage lifestyle modification (9) Obstructive sleep apnea: Plan: CPAP qHS while inpatient but is nauseated or ends up with NGT-- use ONLY SUPPLEMENTAL O2 via NC Encourage outpatient use Plan: lovenox for DVt prophylaxis code status discussed: Full Code Admission and Anticipated Discharge Date Admission Date: May 21, 2021 Subjective Patient seen on daily rounds today. He was hospitalized in the [employer] supervisor hours secondary to a small bowel obstruction. He reports 4 days of constant abdominal pain that seems to be more epigastric, right upper and left upper quadrants. When laying supine, the pain radiates up into his chest but otherwise remains mostly in the upper abdomen. He has had nausea and dry heaves but no obvious emesis. Appetite has been poor as pain made worse by eating. Called his PCP and advised to come to the emergency department where he was found to have radiographic evidence of a small bowel obstruction. There is also concern of jejunal thickening. He does not have a fever or leukocytosis. He has had an EGD/colonoscopy in the past reporting du odenal ulcer seen on EGD but normal C-scope. He does have a history of laparoscopic cholecystectomy in the past but has never had a bowel obstruction. Denies any radiation or trauma to the abdomen. Does have a hernia noted on exam but no incarceration/strangulation noted. Denies chronic constipation or diarrhea. Was having normal bowel movements up until 2 days ago. Started having nothing but liquid stool. Did have a normal and formed BM overnight. Despite that his abdominal pain and dry heaving persisted which is what prompted him to come to seek medical attention. He is reporting current pain rated as a 9/10 but also asking to eat. No longer nauseated or dry heaving Patient was moved to [facility] and developed increased epigastric pain radiating into his chest and back. A code purple was called. Patient had an EKG drawn that is nonacute. ABG obtained and pending. He was hy pertensive (190's/110's) as he didn't receive his oral medications given his NPO status and had not yet received his IV lopressor (which was ordered routine) or hydralazine. Otherwise, HD stable- not tachycardic or hypotensive. Given SL NTG and IV Morphine. Still c/o "chest pain". No significant improvement in BP with NTG or Morphine. Given IV hydralazine and BP currently 154/117 On exam, he is having significant LUQ pain and now seems distended in this area He is nauseated and dry heaving Review of Systems Review of Systems: All systems reviewed and are unremarkable except as noted in HPI and below Denies fevers, chills, headache, nasal congestion, sore throat, cough, palpitations, orthopnea, PND, constipation, dysuria, hematuria, frequency, back pain, joint pain or swelling, easy bruising or bleeding, skin lesions or rashes. Physical Exam Physical Exam: General: Resting comfortably in his hospital bed. Appears chronically but not acutely ill. NAD. HEENT: Head is AT/NC. Buccal mucosa is moist and pink Neck: No JVD. Negative hepatojugular reflex Cardiac: RRR but very distant heart sounds Lungs: Breathing comfortably on 5 L of oxygen (which he did notes his baseline). Diminished breath sounds throughout without wheezes, rales or rhonchi Abdomen: Patient obese and difficult to examine. Significant abdominal striae a and intertrigo on the abdomen. Does have significant diastases recti when leaning back. Normoactive bowel sounds. Abdomen is not distended. Abdomen is soft in all quadrants. Slightly tender in the left upper quadrant. Extremities: + adiposity without true pitting edema Neuro: A&O X4. Cranial nerves II through XII are grossly intact. No focal neuro deficits Skin:significant abd striae with sores on his abdomen without overt infection Psych:seems to have a slightly intellectual disability but is peasant otherwise re-examination with the code purple: appeared comfortable. somnolent but arousable (had Morphine Sulfate). Does not appear in any acute distress Hypertensive (170's/110's) RRR but distant heart sound breathing comfortably in supplemental O2. Normal respiratory effort abd with increased distention in the LUQ and exquisitely tender to palpation + vascular changes and adiposity without true pitting edema of the LE Results & Data Results & Data ([facility]) Vital Signs (Past 12 Hours) Vital Signs Temp Pulse Pulse Resp BP BP Pulse Ox 05/21/21 10:43 96 H 22 97 05/21/21 09:39 36.5 C 94 H 18 154/117 H 100 05/21/21 08:30 78 14 159/106 H 98 05/21/21 08:00 92 H 17 130/104 H 94 05/21/21 07:30 81 20 142/98 H 95 05/21/21 07:13 87 21 169/114 H 99 05/21/21 07:00 153/111 H 97 05/21/21 06:30 24 159/98 H 98 05/21/21 05:15 98 05/21/21 05:00 155/108 H 98 05/21/21 04:53 100 05/21/21 04:30 88 16 171/111 H 96 04/09/22 04:15 88 23 97 05/21/21 04:00 92 H 18 162/117 H 98 05/21/21 03:45 94 H 25 H 97 05/21/21 03:31 96 H 27 H 163/121 H 95 05/21/21 03:30 102 H 19 93 05/21/21 03:15 102 H 18 99 05/21/21 03:13 101 H 24 98 05/21/21 03:06 96 05/21/21 02:33 37.2 C 121 H 18 193/115 H 98 Laboratory Results 05/21/21 Unknown 05/21/21 Unknown pH: 7.36 05/21/21 12:31 POC pCO2 45 POC pO2 96 H Blood Sugar: 193 PG Care Time/CCT Total # of Minutes Spent Total Time Spent with Patient: Total time spent is greater than 50% in coordination of care (as documented) at patient's floor/unit and/or counseling patient: 60 min Coding Level of Care Code 57455 Subseq Hosp Care Lvl 3 Diagnoses Small bowel obstruction K56.609 Diabetes mellitus type II, uncontrolled E11.65 Glycemic state: with hyperglycemia Morbid obesity with BMI of 50.0-59.9, adult E66.01; Z68.43 Hypertension I10 Hypertension type: unspecified NICM (nonischemic cardiomyopathy) I42.8 Obstructive sleep apnea G47.33 Jejunitis K52.9 Hypomagnesemia E83.42 Chest pain R07.9 Comment time spent 60 min- critical care time ([id number]) (1) Diabetes mellitus type II, uncontrolled Glycemic state: with hyperglycemia Qualified Code(s): E11.65 - Type 2 diabetes mellitus with hyperglycemia (2) Hypertension Hypertension type: unspecified Qualified Code(s): I10 - Essential (primary) hypertension
[2021-05-21] MEDS ORDERED: INSULIN ASPART PER UNIT SC SCH (12:00)
[2021-05-21] MEDS ORDERED: NITROGLYCERIN SL 0.4 MG/TAB TAB ONE (12:22)
[2021-05-21] MEDS ORDERED: NITROGLYCERIN SL 0.4 MG/TAB TAB SL ONE (12:30)
[2021-05-21 12:46] LABS: iSTAT Allen Test Pass; iSTAT Art Bld Gas pCO2 Correct 45 mmHg (35-46); iSTAT Arterial Blood Gas HCO3 26 meg/L (19-24); iSTAT Arterial Blood Gas pCO2 45 mmHg (35-46); iSTAT Arterial Blood Gas pH 7.36 (7.35-7.45); iSTAT Arterial Blood Gas pO2 96 mmHg (80-95); iSTAT Arterial Blood Gas pO2 C 96; iSTAT Carbon Dioxide 27 mmol/L (24-31); iSTAT Hematocrit 46 % (42-52); iSTAT Hemoglobin 15.6 g/dl (14.0-18.0); iSTAT Potassium 4.2 mmol/L (3.3-5.0); iSTAT Site R Radial; iSTAT Sodium 138 mmol/L (135-144)
[2021-05-21] MEDS ORDERED: METOPROLOL TARTRATE 1 MG/ML VIAL IV ONE (13:09)
--- NOTE | 2021-05-21 13:19 | Electrocardiogram Report ---
Test Reason : Blood Pressure : / mmHG Vent. Rate : 106 BPM Atrial Rate : 106 BPM P-R Int : 164 ms QRS Dur : 112 ms QT Int : 356 ms P-R-T Axes : 038 -48 091 degrees QTc Int : 472 ms Sinus tachycardia Possible Left atrial enlargement Left axis deviation Incomplete left bundle block Left ventricular hypertrophy with repolarization abnormality Abnormal ECG When compared with ECG of 11-MAR-2021 09:32, No significant change was found Confirmed by Harry Bush ([id number]) on 05/21/2021 1:18:38 PM Referred By: REFERRED SELF Confirmed By:Harry Bush
[2021-05-21] MEDS: METOPROLOL TARTRATE 1 MG/ML VIAL IV SCH ×3 (13:29→23:41)
[2021-05-21] MEDS: INSULIN HUMAN REGULAR SC SCH ×2 (13:34→18:09)
--- NOTE | 2021-05-21 15:02 | XRay Report ---
KUB HISTORY: Small bowel obstruction- check stomach distention COMPARISON: Abdomen and pelvis CT 05/21/2021. FINDINGS: Prior cholecystectomy. Pacemaker wires partially visualized. Multiple dilated gas-filled lo ops of small bowel are seen throughout the abdomen measuring up to 5.2 cm in diameter. This is consis tent with a small bowel obstruction. There is gas within the colon. Therefore, this may represent a p artial small bowel obstruction at this time. There is contrast within the bladder from the recent CT examination. Small amount of gas within the stomach which is not significantly distended. No renal c alculi. No ureteral calculi. No pneumoperitoneum or pneumatosis. IMPRESSION: 1. Multiple dilated gas-filled loops of small bowel seen throughout the abdomen consistent with a sma ll bowel obstruction. This is similar to the prior study. 2. Small amount of gas within the stomach which is not significantly distended. ACT 112: Negative or not required by law. Electronically signed by: Andrea Bear M.D. 05/21/2021 3:01 PM
[2021-05-21] MEDS ORDERED: HYDROmorphone INJ 0.5 MG/0.5 ML SYR IV PRN (15:25)
--- NOTE | 2021-05-21 16:09 | XCELERA ---
[id number]
[2021-05-21] MEDS ORDERED: ENALAPRILAT 1.25 MG in DEXTROSE 5% 25 ML IV SCH (17:30)
[2021-05-21] MEDS: NITROGLYCERIN 2% OINTMENT 30GM TUBE EXT SCH ×2 (17:35→23:40)
[2021-05-21] MEDS: hydrALAZINE HCL 20 MG/ML VIAL IV SCH ×2 (17:35→23:38)
[2021-05-21] MEDS: FUROSEMIDE INJ 20 MG/2 ML VIAL IV SCH (21:14)
[2021-05-21] MEDS: FAMOTIDINE 20 MG in SYRINGE 3 ML IV SCH (21:36)
[2021-05-22] MEDS: INSULIN HUMAN REGULAR SC SCH ×4 (00:02→18:29)
[2021-05-22] MEDS: ALBUTEROL 0.083% NEBU SOLN 3 ML VIAL INH SCH ×4 (00:48→19:44)
[2021-05-22] MEDS: hydrALAZINE HCL 20 MG/ML VIAL IV SCH ×4 (05:44→23:46)
[2021-05-22] MEDS: METOPROLOL TARTRATE 1 MG/ML VIAL IV SCH ×4 (05:46→23:52)
[2021-05-22] MEDS: NITROGLYCERIN 2% OINTMENT 30GM TUBE EXT SCH ×4 (05:58→23:45)
[2021-05-22 06:42] LABS: Basophils # (auto) 0.01 K/uL (0-0.2); Basophils % (auto) 0.1 %; Eosinophils # (auto) 0.06 K/uL (0-0.5); Eosinophils % (auto) 0.7 %; Hematocrit (blood only) 46.3 % (42-52); Immature Granulocytes # (auto) 0.02 K/uL (0.00-0.02); Immature Granulocytes % (auto) 0.2 %; Lymphocytes # (auto) 1.02 K/uL (1.2-3.4); Lymphocytes % (auto) 11.9 %; Mean Corpuscular Hemoglobin 27.4 pg (25-34); Mean Corpuscular Hgb Conc 32.4 g/dL (32-36); Mean Corpuscular Volume 84.6 fL (80-100); Mean Platelet Volume 10.3 fL (7.4-10.4); Monocytes # (auto) 0.58 K/uL (0.11-0.59); Monocytes % (auto) 6.7 %; Neutrophils # (auto) 6.91 K/uL (1.4-6.5); Neutrophils % (auto) 80.4 %; Platelet Count 165 K/uL (130-400); RDW Coefficient of Variation 16.1 % (11.5-14.5); RDW Standard Deviation 49.8 fL (36.4-46.3); Red Blood Count 5.47 M/uL (4.7-6.1)
--- NOTE | 2021-05-22 06:49 | Surgery Progress Note ---
Date of Service May 22, 2021 Assessment & Plan (1) Small bowel obstruction: Plan: Patient has been admitted on the hospitalist service. Recommend proceeding as follows: Continue n.p.o. status until improvement of abdominal exam is noted Patient is passing flatus did not feel an NG tube is required at this time Repeat KUB ordered for this morning; will follow for results of this Continue cautious hydration with IV fluids; as previously noted this can proved to be challenging due to the patient's known low ejection fraction Would prefer to treat this conservatively due to patient's underlying cardiac condition Admission and Anticipated Discharge Date Admission Date: May 21, 2021 Supervising Physician Co-Signing Physician Notes Patient seen and examined, labs and imaging reviewed, agree with above. 45-year-old male admitted with jejunitis and partial small bowel obstruction. He seems to be doing better this morning though he still sore in his abdomen. He has passed flatus. He did have a code purple called yesterday and was unresponsive, he responded to nitroglycerin. Subsequent echo showed a persistent ejection fraction of 25%. On exam he is afebrile with stable vitals, abdomen soft, mildly tender to palpation, nondistended. X-ray reviewed and appears improved. He is not completely obstructed, and appears to have a jejunitis which may be inflammatory or infectious. There is no surgical indication at this time. Would recommend a GI consult. He may have clear liquids. If any surgery intervention were entertained, would recommend this be performed at a tertiary center given his cardiomyopathy. Subjective Patient is resting comfortably in bed. He notes continued abdominal pain and today appears to be greatest on the left side of his abdomen. He does report passing some flatus since admission. He believes he has had a bowel movement but could not confirm this with RN. No nausea vomiting. No fevers, shakes, chills. Physical Exam Gastrointestinal (Abdomen): Abdomen is rotund. Bowel sounds are present. There is generalized pain with palpation but appears to be greatest just to the left of the umbilicus. Results & Data ([facility]) Vital Signs (Past 12 Hours) Vital Signs Temp Pulse Pulse Pulse Resp BP BP 05/22/21 05:46 83 165/102 H 05/22/21 03:26 36.7 C 98 H 20 158/99 H 05/22/21 00:49 88 05/22/21 00:46 82 20 127/76 04/09/22 23:41 78 135/93 05/21/21 23:04 36.8 C 75 18 140/96 05/21/21 22:20 85 05/21/21 19:18 80 25 H Pulse Ox 05/22/21 05:46 05/22/21 03:26 98 05/22/21 00:49 97 05/22/21 00:46 98 05/21/21 23:41 05/21/21 23:04 97 05/21/21 22:20 05/21/21 19:18 97 PG Care Time/CCT Total # of Minutes Spent Total Time Spent with Patient: Total time spent is greater than 50% in coordination of care (as documented) at patient's floor/unit and/or counseling patient: Coding Level of Care Code 55883 Subseq Hosp Care Lvl 1 Diagnoses Small bowel obstruction K56.609
[2021-05-22 07:02] LABS: Calcium 8.3 mg/dl (8.5-10.1); Creatinine Clr Calc Pharmacy 141.2 ml/min; Est GFR (African American) 105.6 ml/min; Est GFR (Non-African American) 91.1 ml/min; Potassium 4.6 mmol/L (3.5-5.1)
[2021-05-22] MEDS: ENOXAPARIN INJ 40 MG/0.4 ML SYR SQ SCH (07:25)
[2021-05-22] MEDS: CLOTRIMAZOLE 1% CR 15 GM TUBE TOP SCH ×2 (07:27→20:41)
[2021-05-22] MEDS: FLUTICASONE/VILANTEROL 200/25MCG 14 PUFFS/INHALER INH SCH (07:27)
--- NOTE | 2021-05-22 07:31 | XRay Report ---
KUB HISTORY: Small bowel obstruction. Follow-up. COMPARISON: KUB 05/21/2021. FINDINGS: There are few mildly dilated gas-filled loops of small bowel seen within the abdomen. This has improved in the interval. Small amount of gas is also seen within the colon. No renal calculi. N o ureteral calculi. No pneumoperitoneum or pneumatosis. IMPRESSION: Mildly dilated gas-filled loops of small bowel within the abdomen have improved in the interval. ACT 112: Negative or not required by law. Electronically signed by: Andrea Bear M.D. 05/22/2021 7:30 AM
[2021-05-22] MEDS: FUROSEMIDE INJ 20 MG/2 ML VIAL IV SCH ×2 (07:33→20:47)
[2021-05-22] MEDS: FAMOTIDINE 20 MG in SYRINGE 3 ML IV SCH ×2 (07:33→20:47)
[2021-05-22] MEDS: INSULIN GLARGINE SOLOSTAR 100 UNITS/ML 3 ML PEN SC SCH ×2 (07:52→20:48)
--- NOTE | 2021-05-22 08:00 | Hospitalist Progress Note ---
Date of Service May 22, 2021 Assessment & Plan (1) Small bowel obstruction: Plan: 45yo male with 4 days of mid abdominal pain, nausea/vomiting, liquid stools. CT findings suggestive of SBO with associated jejunitis - h/o lap viir in the past - reports having EGD in the past (with duodenal ulcer) and colonoscopy (WNL). No h/o IBD, no masses - afebrile. Normal WBC count - will continue to treat conservatively (NPO status for bowel rest, antiemetics and IV pain medications as needed) - although still with abd pain and reported nausea, seems to have somewhat of a histrionic personality. -Low threshold for NGT but doesn't seem necessary at this point. - He is passing Flatus, he has bowel sounds, his abd is nondistended and doesn't seem quit as tender today so seems to be showing favorable response. KUB showing less bowel dilation - continue NPO status - will obtain SBTF in the am to determine transit time and given concern for transition point at the area of jejunal thickening. Uncertain is this is a stricture. - encouraged ambulation - General Surgery Consulted-- appreciate recommendations. Given the jejunitis and concern that there is a transition point in this region, I am concerned that he may not respond conservatively-- continue to follow clinically - If surgical intervention is required, would need transferred to a tertiary center given his severe LVD (2) Jejunitis: Plan: - there is evidence of mucosal thickening at the jejunum on CT scan - pt has had EGD (multiple) in the past showing ulcers. C.Scope in the past WNL. No h/o ulcerative colitis or Crohn's - not suspicious that this is infectious with his normal WBC and afebrile state. No abx at this time - There does appear to be a transition point seen in this region on imaging. Uncertain is there is a stricture here? - SBFT tomorrow - Ordered HLA-B27 and Celiac panel-- pending - discussed briefly with GI who agrees with plan and will see patient in FU as nothing more to add at this point - Typically on Protonix. Needs GI prophylaxis but with very low mag, will avoid protonix and utilize Pepcid (3) Hypomagnesemia: Plan: - replaced and resolved - Uncertain if 2/2 to chronic protonix on board (which has since been changed to Pepcid) (4) Chest pain: Plan: - Code armando called on 05/21 ~1230 - Pt c/o epigastric and LUQ pain with radiation into his chest and pain - Accelerated BP-- improved with SL NTG, Hydralazine. Perhaps this was contributing to his CP - tender in the epigastric region and LLQ with distention and a known SOB-- suspect his CP is referral from his SBO - does have a h/o NONISCHEMIC cardiomyopathy. Takes Imdur but for CHF and not angina. - cardiac enzymes cycled and remained negative - echocardiogram updated. 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 No need for cardiac intervention at this time (5) Diabetes mellitus type II, uncontrolled: Plan: Poorly controlled. Last [id number]=93.5 on 03/12/21 - continue lantus at reduced dose given NPO status - Regular insulin (given NPO status) via SS (6) Hypertension: Plan: - accelerated BP given NPO status and lack or oral intake - given NPO status, oral antihypertensive agents on hold (Imdur, Metoprolol, Entresto, Aldactone, Demedex) - for BP control, currently on scheduled IV lopressor, Hydralazine, and Nitro paste. Will transition back to oral once tolerating PO intake) (7) NICM (nonischemic cardiomyopathy): Plan: h/o mixed systolic and diastolic dysfunction-- EF 15-20% - Currently patient appears euvolemic - He is n.p.o. on account of his SBO. Received VERY gently IV hydration (1L) - P.o. medications on hold. Takes Demedex/Aldactone routine for diruesis along with Entresto, Imdur and Metoprolol - given NPO status, oral meds on hold. Receiving IV lasix, Lopressor and Hydralazine along with topical paste - has ICD (8) Morbid obesity with BMI of 50.0-59.9, adult: Plan: Encourage lifestyle modification (9) Obstructive sleep apnea: Plan: CPAP qHS while inpatient but is nauseated or ends up with NGT-- use ONLY SUPPLEMENTAL O2 via NC Encourage outpatient use Plan: lovenox for DVt prophylaxis code status discussed: Full Code have attempted to call the at the number provided by patient ([phone]). No answer. Multiple messages left. Plan of care to be D/W Dr. Gonzalez Admission and Anticipated Discharge Date Admission Date: May 21, 2021 Subjective Patient seen on daily rounds today. Seems to be somewhat histrionic. He is complaining of persistent abdominal pain, nausea and dry heaves although nursing staff did notes he has been very comfortable in bed watching TV. He is passing flatus. In addition, he is asking to eat. When discussed if he still having significant pain that we may need to pursue an NGT, he reports that "his pain is not that bad". He claims it is approximately a 2/10 today whereas yesterday he was denoting a 9/10 pain. His KUB this morning seems somewhat improved but persistent dilated loops of bowel seen. His troponin has cycled and remained negative. His echocardiogram shows worsening EF of 15 to 20% with hypokinesis of the base but no significant change compared to prior echocardiogram done in 2019. His blood pressure remains significantly improved today. Currently 117/63. Review of Systems Review of Systems: All systems reviewed and are unremarkable except as noted in HPI and below Denies fevers, chills, headache, nasal congestion, sore throat, cough, palpitations, orthopnea, PND, constipation, dysuria, hematuria, frequency, back pain, joint pain or swelling, easy bruising or bleeding, skin lesions or rashes. Physical Exam Physical Exam: General: Resting comfortably in his hospital bed. Appears chronically but not acutely ill. NAD. HEENT: Head is AT/NC. Buccal mucosa is moist and pink Neck: No JVD. Negative hepatojugular reflex Cardiac: RRR but very distant heart sounds Lungs: Breathing comfortably on 3 L of oxygen (wears 5L at baseline). Diminished breath sounds throughout without wheezes, rales or rhonchi Abdomen: Patient obese and difficult to examine. Significant abdominal striae on the abdomen. Does have significant diastases recti when leaning back. Normoactive bowel sounds. Abdomen is not distended. Abdomen is soft in all quadrants. Slightly tender in the left upper quadrant. Extremities: + adiposity without true pitting edema Neuro: A&O X4. Cranial nerves II through XII are grossly intact. 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) Vital Signs (Past 12 Hours) Vital Signs Temp Pulse Pulse Pulse Resp BP BP 05/22/21 07:18 87 18 05/22/21 07:09 36.8 C 81 22 117/63 05/22/21 05:46 83 165/102 H 05/22/21 03:26 36.7 C 98 H 20 158/99 H 05/22/21 00:49 88 05/22/21 00:46 82 20 127/76 05/21/21 23:41 78 135/93 05/21/21 23:04 36.8 C 75 18 140/96 05/21/21 22:20 85 Pulse Ox 05/22/21 07:18 99 05/22/21 07:09 98 05/22/21 05:46 05/22/21 03:26 98 05/22/21 00:49 97 05/22/21 00:46 98 05/21/21 23:41 05/21/21 23:04 97 05/21/21 22:20 Laboratory Results 05/22/21 05:50 05/22/21 05:50 Diagnostic Findings FU KUB today: IMPRESSION: Mildly dilated gas-filled loops of small bowel within the abdomen have improved in the interval. PG Care Time/CCT Total # of Minutes Spent Total Time Spent with Patient: Total time spent is greater than 50% in coordination of care (as documented) at patient's floor/unit and/or counseling patient: Coding Level of Care Code 26019 Subseq Hosp Care Lvl 2 Diagnoses Small bowel obstruction K56.609 Jejunitis K52.9 Hypomagnesemia E83.42 Chest pain R07.9 Diabetes mellitus type II, uncontrolled E11.65 Glycemic state: with hyperglycemia Hypertension I10 Hypertension type: unspecified NICM (nonischemic cardiomyopathy) I42.8 Morbid obesity with BMI of 50.0-59.9, adult E66.01; Z68.43 Obstructive sleep apnea G47.33 (1) Diabetes mellitus type II, uncontrolled Glycemic state: with hyperglycemia Qualified Code(s): E11.65 - Type 2 diabetes mellitus with hyperglycemia (2) Hypertension Hypertension type: unspecified Qualified Code(s): I10 - Essential (primary) hypertension
--- NOTE | 2021-05-22 10:47 | Electrocardiogram Report ---
Test Reason : Blood Pressure : / mmHG Vent. Rate : 093 BPM Atrial Rate : 093 BPM P-R Int : 164 ms QRS Dur : 116 ms QT Int : 394 ms P-R-T Axes : 034 -45 094 degrees QTc Int : 489 ms Normal sinus rhythm Possible Left atrial enlargement Left axis deviation Incomplete left bundle block Abnormal QRS-T angle, consider primary T wave abnormality Prolonged QT Abnormal ECG When compared with ECG of 21-MAY-2021 02:46, No significant change was found Confirmed by Harry Bush ([id number]) on 05/22/2021 10:47:13 AM Referred By: REFERRED SELF Confirmed By:Harry Bush
--- NOTE | 2021-05-22 10:50 | Electrocardiogram Report ---
Test Reason : Blood Pressure : / mmHG Vent. Rate : 085 BPM Atrial Rate : 085 BPM P-R Int : 170 ms QRS Dur : 116 ms QT Int : 420 ms P-R-T Axes : 036 -56 090 degrees QTc Int : 499 ms Normal sinus rhythm Possible Left atrial enlargement Left axis deviation Incomplete left bundle block Prolonged QT Abnormal ECG When compared with ECG of 21-MAY-2021 12:22, (unconfirmed) No significant change was found Confirmed by Harry Bush ([id number]) on 05/22/2021 10:50:01 AM Referred By: REFERRED SELF Confirmed By:Harry Bush
[2021-05-23] MEDS: ALBUTEROL 0.083% NEBU SOLN 3 ML VIAL INH SCH ×5 (00:35→23:44)
[2021-05-23] MEDS: INSULIN HUMAN REGULAR SC SCH ×2 (00:46→06:35)
[2021-05-23] MEDS: NITROGLYCERIN 2% OINTMENT 30GM TUBE EXT SCH ×2 (05:14→12:37)
[2021-05-23] MEDS: hydrALAZINE HCL 20 MG/ML VIAL IV SCH ×2 (05:32→12:37)
[2021-05-23] MEDS: METOPROLOL TARTRATE 1 MG/ML VIAL IV SCH ×2 (05:32→12:37)
[2021-05-23 06:47] LABS: Basophils # (auto) 0.02 K/uL (0-0.2); Basophils % (auto) 0.3 %; Eosinophils # (auto) 0.03 K/uL (0-0.5); Eosinophils % (auto) 0.4 %; Hematocrit (blood only) 43.5 % (42-52); Hemoglobin 14.5 g/dL (14.0-18.0); Immature Granulocytes # (auto) 0.01 K/uL (0.00-0.02); Immature Granulocytes % (auto) 0.1 %; Lymphocytes # (auto) 1.77 K/uL (1.2-3.4); Lymphocytes % (auto) 24.8 %; Mean Corpuscular Hemoglobin 27.9 pg (25-34); Mean Corpuscular Hgb Conc 33.3 g/dL (32-36); Mean Corpuscular Volume 83.7 fL (80-100); Mean Platelet Volume 9.9 fL (7.4-10.4); Monocytes # (auto) 0.51 K/uL (0.11-0.59); Monocytes % (auto) 7.1 %; Neutrophils # (auto) 4.81 K/uL (1.4-6.5); Neutrophils % (auto) 67.3 %; Platelet Count 175 K/uL (130-400); RDW Coefficient of Variation 16.5 % (11.5-14.5); RDW Standard Deviation 50.5 fL (36.4-46.3); White Blood Count 7.15 K/uL (4.8-10.8)
[2021-05-23 06:56] LABS: BUN Creatinine Ratio 13.5 (10-20); Calcium 8.7 mg/dl (8.5-10.1); Creatinine Clr Calc Pharmacy 147.3 ml/min; Est GFR (Non-African American) 95.7 ml/min; Magnesium 1.9 mg/dl (1.7-2.4); Potassium 3.9 mmol/L (3.5-5.1)
[2021-05-23] MEDS: CLOTRIMAZOLE 1% CR 15 GM TUBE TOP SCH ×2 (08:34→20:30)
[2021-05-23] MEDS: ENOXAPARIN INJ 40 MG/0.4 ML SYR SQ SCH ×2 (08:35→08:40)
[2021-05-23] MEDS: FLUTICASONE/VILANTEROL 200/25MCG 14 PUFFS/INHALER INH SCH (08:35)
[2021-05-23] MEDS: INSULIN GLARGINE SOLOSTAR 100 UNITS/ML 3 ML PEN SC SCH ×2 (08:36→20:16)
[2021-05-23] MEDS: FAMOTIDINE 20 MG in SYRINGE 3 ML IV SCH ×2 (08:38→20:30)
[2021-05-23] MEDS: FUROSEMIDE INJ 20 MG/2 ML VIAL IV SCH (08:38)
--- NOTE | 2021-05-23 09:03 | Hospitalist Progress Note ---
Date of Service May 23, 2021 Assessment & Plan (1) Small bowel obstruction: Plan: 45yo male with 4 days of mid abdominal pain, nausea/vomiting, liquid stools. CT findings suggestive of SBO with associated jejunitis - h/o lap viri in the past - reports having EGD in the past (with duodenal ulcer) and colonoscopy (WNL). No h/o IBD, no masses - afebrile. Normal WBC count - Has been treated conservatively with n.p.o. status for bowel rest, antiemetics and IV pain control. Has not needed NGT - SBFT done this morning showing normal transit time and no evidence of SBO. He is passing flatus and has subsequently had multiple BMs. Denies abdominal pain, nausea or vomiting. - Will initiate clear liquids. Advance as tolerated with potential discharge tomorrow - General Surgery Consulted and following- appreciate recommendations. -- If surgical intervention is required, would need transferred to a tertiary center given his severe LVD (2) Jejunitis: Plan: - there is evidence of mucosal thickening at the jejunum on CT scan - pt has had EGD (multiple) in the past showing ulcers. C.Scope in the past WNL. No h/o ulcerative colitis or Crohn's - not suspicious that this is infectious with his normal WBC and afebrile state. No abx at this time - There does appear to be a transition point seen in this region on imaging. - SBFT has since been done showing no evidence of jejunitis - Ordered HLA-B27 and Celiac panel-- pending - discussed briefly with GI on 05/21- agreed with plan and will see patient in FU as nothing more to add at this point - Typically on Protonix. Needs GI prophylaxis but with very low mag, avoiding PPI and utilizing Pepcid (3) Hypomagnesemia: Plan: - replaced and resolved - Uncertain if 2/2 to chronic protonix on board (which has since been changed to Pepcid) (4) Chest pain: Plan: - Code purple called on 05/21 ~1230 - Pt c/o epigastric and LUQ pain with radiation into his chest and pain - Accelerated BP-- improved with SL NTG, Hydralazine. Perhaps this was contributing to his CP - tender in the epigastric region and LLQ with distention and a known SOB-- suspect his CP is referral from his SBO - does have a h/o NONISCHEMIC cardiomyopathy. Takes Imdur but for CHF and not angina. - cardiac enzymes cycled and remained negative - echocardiogram updated. Slightly worsening of his EF from 2020 (now 15-20%, was 20-25%) and akinesis of the apex - EKG nonacute - "CP" seemed referred from SBO and has since resolved with resolution of SBO - will need to FU with his established medical csr upon D/C. No need for car diac intervention at this time (5) Diabetes mellitus type II, uncontrolled: Plan: Poorly controlled. Last IwrE1P=45.5 on 03/12/21 - continue lantus at reduced dose given NPO status - Regular insulin on board via sliding scale thus far given n.p.o. status. With initiation of oral intake, will transition to analog (6) Hypertension: Plan: - given NPO status, oral antihypertensive agents have been on hold (Imdur, Metoprolol, Entresto, Aldactone, Demedex) - for BP control, currently on scheduled IV lopressor, Hydralazine, and Nitro paste. Will transition back to oral once tolerating PO intake. BP controlled with this - With clinical improvement of SBO and initiation of oral intake, will transition back to his oral antihypertensive agents - BP accelerated upfront and could have been contributing to his chest pain. BP has since been adequately controlled (7) NICM (nonischemic cardiomyopathy): Plan: h/o mixed systolic and diastolic dysfunction-- EF 15-20% - Currently patient appears euvolemic - He is n.p.o. on account of his SBO. Received VERY gently IV hydration (1L) - P.o. medications on hold. Takes Demedex/Aldactone routine for diruesis along with Entresto, Imdur and Metoprolol - given NPO status, oral meds on hold. Receiving IV lasix, Lopressor and Hydralazine along with topical paste - has ICD (8) Morbid obesity with BMI of 50.0-59.9, adult: Plan: Encourage lifestyle modification (9) Obstructive sleep apnea: Plan: CPAP qHS while inpatient but is nauseated or ends up with NGT-- use ONLY SUPPLEMENTAL O2 via [place] Encourage outpatient use Plan: lovenox for DVt prophylaxis code status discussed: Full Code have attempted to call the at the number provided by patient ([phone]). No answer. Multiple messages left. Plan of care to be D/W Dr. Gonzalez. Anticipate likely discharge tomorrow Admission and Anticipated Discharge Date Admission Date: May 21, 2021 Subjective Patient seen on daily rounds today. Vocalizes no complaints or concerns. Reports"I feelfine". Upset that he has not had anything to eat or drink in 2 days. Passing significant amounts of flatus. Seen prior to his SBFT but reports from nursing staff following this, he had multiple BMs and continued to ask for food. SBFT reviewed showing normal transit time and no evidence of small bowel obstruction. Review of Systems Review of Systems: All systems reviewed and are unremarkable except as noted in HPI and below Denies fevers, chills, headache, nasal congestion, sore throat, cough, chest pain, shortness of breath, palpitations, orthopnea, PND, abdominal pain, nausea, vomiting, diarrhea, constipation, dysuria, hematuria, frequency, back pain, joint pain or swelling, easy bruising or bleeding, skin lesions or rashes. Physical Exam Physical Exam: General: Resting comfortably in his hospital bed. Appears chronically but not acutely ill. NAD. HEENT: Head is AT/NC. Buccal mucosa is moist and pink Neck: No JVD. Negative hepatojugular reflex Cardiac: RRR but very distant heart sounds Lungs: Breathing comfortably on 3 L of oxygen (wears 5L at baseline). Diminished breath sounds throughout without wheezes, rales or rhonchi Abdomen: Patient obese and difficult to examine. Significant abdominal striae on the abdomen. Does have significant diastases recti when leaning back. Normoactive bowel sounds x4. abd soft and NT throughout Extremities: + adiposity without true pitting edema Neuro: A&O X4. Cranial nerves II through XII are grossly intact. 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 but is peasant otherwise Results & Data Results & Data ([facility]) Vital Signs (Past 12 Hours) Vital Signs Temp Pulse Pulse Resp BP BP Pulse Ox 05/23/21 07:28 36.7 C 91 H 20 112/71 97 05/23/21 07:14 87 18 97 05/23/21 05:32 91 H 117/78 05/23/21 05:26 117/78 05/23/21 03:45 36.7 C 91 H 18 120/86 98 05/23/21 00:36 88 16 97 05/22/21 23:52 107 H 101/66 05/22/21 23:21 101/66 05/22/21 23:18 37.2 C 107 H 18 102/62 98 05/22/21 22:59 95 H Laboratory Results 05/23/21 06:24 05/23/21 06:24 Diagnostic Findings SBFT: FINDINGS: Vat Packer films of the abdomen demonstrated a few air-filled loops of small bowel without significant dilatation.. Serial abdominal radiographs obtained following oral ingestion of 300 mL of Optiray 300 diluted with 300 mL o f water. This demonstrates prompt passage of contrast material through the small bowel and into the colon. No persistent constricting or obstructing lesions are noted. The mucosal pattern is within normal limits.. The terminal ileum is within normal limits. IMPRESSION: 1. No evidence for small bowel obstruction. 2. Contrast extends from the stomach and into the colon in one hour and 25 minutes. PG Care Time/CCT Total # of Minutes Spent Total Time Spent with Patient: Total time spent is greater than 50% in coordination of care (as documented) at patient's floor/unit and/or counseling patient: Coding Level of Care Code 10261 Subseq Hosp Care Lvl 2 Diagnoses Small bowel obstruction K56.609 Jejunitis K52.9 Hypomagnesemia E83.42 Chest pain R07.9 Diabetes mellitus type II, uncontrolled E11.65 Glycemic state: with hyperglycemia Hypertension I10 Hypertension type: unspecified NICM (nonischemic cardiomyopathy) I42.8 Morbid obesity with BMI of 50.0-59.9, adult E66.01; Z68.43 Obstructive sleep apnea G47.33 (1) Diabetes mellitus type II, uncontrolled Glycemic state: with hyperglycemia Qualified Code(s): E11.65 - Type 2 diabetes mellitus with hyperglycemia (2) Hypertension Hypertension type: unspecified Qualified Code(s): I10 - Essential (primary) hypertension
--- NOTE | 2021-05-23 09:35 | Surgery Progress Note ---
Date of Service May 23, 2021 Assessment & Plan (1) Small bowel obstruction: Plan: improved scheduled for SBFT today otherwise can start clears Admission and Anticipated Discharge Date Admission Date: May 21, 2021 Supervising Physician Co-Signing Physician Notes [place] small bowel follow through CLINICAL HISTORY: Vomiting. History of SBO-assess transit time. COMPARISON STUDY: Standard radiographs from 05/22/2021 TECHNIQUE: Barium contrast small bowel series was performed. Barium was followed throughout the small bowel for one hour and 25 minute period. 8 overhead radiographs were obtained along with 2 tie buyer films. FINDINGS: Wholesale Representative films of the abdomen demonstrated a few air-filled loops of small bowel without significant dilatation.. Serial abdominal radiographs obtained following oral ingestion of 300 mL of Optiray 300 diluted with 300 mL of water. This demonstrates prompt passage of contrast material through the small bowel and into the colon. No persistent constricting or obstructing lesions are noted. The mucosal pattern is within normal limits.. The terminal ileum is within normal limits. IMPRESSION: 1. No evidence for small bowel obstruction. 2. Contrast extends from the stomach and into the colon in one hour and 25 minutes. Patient seen and examined, labs and image reviewed, agree with above. 45-year-old male admitted with enteritis and questionable partial small bowel obstruction. He has been feeling better, small bowel follow-through today showed transit into the colon within an hour and 25 minutes. No evidence of bowel obstruction. On exam is afebrile stable vitals. Abdomen soft, nontender, nondistended. Looks much better. Advance diet as tolerated, may need outpat ient follow-up for findings on CT that could be concerning for inflammatory bowel disease. Surgery will sign off, call with questions or concerns. Subjective "lots" of flatus, less pain, hungry Physical Exam Gastrointestinal (Abdomen): Percussion/Palpation: abdomen soft; abdomen nontender Results & Data ([facility]) Vital Signs (Past 12 Hours) Vital Signs Temp Pulse Pulse Resp BP BP Pulse Ox 05/23/21 07:28 36.7 C 91 H 20 112/71 97 05/23/21 07:14 87 18 97 05/23/21 05:32 91 H 117/78 05/23/21 05:26 117/78 05/23/21 03:45 36.7 C 91 H 18 120/86 98 04/11/22 00:36 88 16 97 05/22/21 23:52 107 H 101/66 05/22/21 23:21 101/66 05/22/21 23:18 37.2 C 107 H 18 102/62 98 05/22/21 22:59 95 H PG Care Time/CCT Total # of Minutes Spent Total Time Spent with Patient: Total time spent is greater than 50% in coordination of care (as documented) at patient's floor/unit and/or counseling patient: Coding Level of Care Code 59576 Subseq Hosp Care Lvl 1 Diagnoses Small bowel obstruction K56.609
--- NOTE | 2021-05-23 12:10 | Fluoroscopy Report ---
[place] small bowel follow through CLINICAL HISTORY: Vomiting. History of SBO-assess transit time. COMPARISON STUDY: Standard radiographs from 05/22/2021 TECHNIQUE: Barium contrast small bowel series was performed. Barium was followed throughout the small bowel for one hour and 25 minute period. 8 overhead radiogra phs were obtained along with 2 pole inspector films. FINDINGS: Nurse Discharge Planner films of the abdomen demonstrated a few air-filled loops of small bowel without signi ficant dilatation.. Serial abdominal radiographs obtained following oral ingestion of 300 mL of Opti ray 300 diluted with 300 mL of water. This demonstrates prompt passage of contrast material through t he small bowel and into the colon. No persistent constricting or obstructing lesions are noted. The mucosal pattern is within normal limits.. The terminal ileum is within normal limits. IMPRESSION: 1. No evidence for small bowel obstruction. 2. Contrast extends from the stomach and into the colon in one hour and 25 minutes. ACT 112: Negative or not required by law. Electronically signed by: Hill Mondragon M.D. 05/23/2021 12:09 PM
[2021-05-23] MEDS ORDERED: METOPROLOL SUCC 50MG EXT REL TAB PO STA (12:38)
[2021-05-23] MEDS ORDERED: hydrALAZINE HCL 20 MG/ML VIAL IV PRN (12:41)
[2021-05-23] MEDS: METOPROLOL SUCC 50MG EXT REL TAB PO SCH ×2 (13:36→20:31)
[2021-05-23] MEDS: INSULIN ASPART PER UNIT SC SCH ×2 (17:36→20:11)
[2021-05-23] MEDS: TORSEMIDE 10 MG TAB PO SCH (20:31)
[2021-05-23] MEDS: VALSARTAN/SACUBITRIL 103/97MG TAB PO SCH (20:32)
[2021-05-23 23:11] LABS: Adenovirus F 40/41 PCR Not Detected (NotDetected); Astrovirus PCR Not Detected (NotDetected); Campylobacter PCR Not Detected (NotDetected); Clostridium diff Toxin A/B PCR Not Detected (NotDetected); Cryptosporidium PCR Not Detected (NotDetected); Cyclospora cayetanensis PCR Not Detected (NotDetected); Entamoeba histolytica PCR Not Detected (NotDetected); Enteroaggregative E.coli(EAEC) Not Detected (NotDetected); Enteropathogenic E.coli (EPEC) Not Detected (NotDetected); Enterotoxigenic E.coli (ETEC) Not Detected (NotDetected); Giardia lamblia PCR Not Detected (NotDetected); Norovirus GI/GII PCR Not Detected (NotDetected); Plesiomonas shigelloides PCR Not Detected (NotDetected); Rotavirus A PCR Not Detected (NotDetected); Salmonella PCR Not Detected (NotDetected); Sapovirus PCR Not Detected (NotDetected); Shiga-like Toxin E.coli (STEC) Not Detected (NotDetected); Shigella/Enteroinvasive E.coli Not Detected (NotDetected); Vibrio cholerae PCR Not Detected (NotDetected); Vibrio species PCR Not Detected (NotDetected); Yersinia enterocolitica PCR Not Detected (NotDetected)
--- NOTE | 2021-05-24 03:29 | Communication Note ---
Date of Service: May 24, 2021 Informed by nursing earlier in evening that patient had 60mL of bloody liquid BM. It is unclear if he had bloody BM earlier in the day. He denies symptoms of anemia. Diet changed to clear liquid. Differential: enteritis vs hemorrhoids vs GI bleed. Exam deferred at this time as patient is asleep. Checking CBC at 5AM.
[2021-05-24 05:55] LABS: Hematocrit (blood only) 44.6 % (42-52); Hemoglobin 14.5 g/dL (14.0-18.0); Mean Corpuscular Hemoglobin 27.4 pg (25-34); Mean Corpuscular Hgb Conc 32.5 g/dL (32-36); Mean Corpuscular Volume 84.2 fL (80-100); Mean Platelet Volume 10.1 fL (7.4-10.4); Platelet Count 162 K/uL (130-400); RDW Coefficient of Variation 16.1 % (11.5-14.5); RDW Standard Deviation 49.6 fL (36.4-46.3); White Blood Count 6.87 K/uL (4.8-10.8)
[2021-05-24 06:15] LABS: BUN Creatinine Ratio 12.8 (10-20); Calcium 8.6 mg/dl (8.5-10.1); Creatinine Clr Calc Pharmacy 149.9 ml/min; Est GFR (African American) 113.8 ml/min; Est GFR (Non-African American) 98.2 ml/min; Potassium 3.6 mmol/L (3.5-5.1)
[2021-05-24] MEDS: ALBUTEROL 0.083% NEBU SOLN 3 ML VIAL INH SCH ×2 (07:04→13:13)
[2021-05-24] MEDS: INSULIN ASPART PER UNIT SC SCH ×2 (07:59→12:56)
[2021-05-24] MEDS: ENOXAPARIN INJ 40 MG/0.4 ML SYR SQ SCH (08:00)
[2021-05-24] MEDS: CLOTRIMAZOLE 1% CR 15 GM TUBE TOP SCH (08:01)
[2021-05-24] MEDS: FLUTICASONE/VILANTEROL 200/25MCG 14 PUFFS/INHALER INH SCH (08:01)
[2021-05-24] MEDS: METOPROLOL SUCC 50MG EXT REL TAB PO SCH (08:02)
[2021-05-24] MEDS: TORSEMIDE 10 MG TAB PO SCH (08:03)
[2021-05-24] MEDS: VALSARTAN/SACUBITRIL 103/97MG TAB PO SCH (08:03)
[2021-05-24] MEDS: INSULIN GLARGINE SOLOSTAR 100 UNITS/ML 3 ML PEN SC SCH (08:03)
[2021-05-24] MEDS: FAMOTIDINE 20 MG in SYRINGE 3 ML IV SCH (08:06)
[2021-05-24] MEDS ORDERED: ISOSORBIDE MONO EXTENDED REL 60 MG TABCR PO SCH (09:00)
[2021-05-24] MEDS ORDERED: SPIRONOLACTONE 25 MG TAB PO SCH (09:00)
--- NOTE | 2021-05-24 13:54 | Discharge Summary ---
Date of Service May 24, 2021 Admission HPI Per Admitting Provider Alok Huff is a 45yo male with NICM EF of 25% presenting with abdominal pain ongoing x 4 days. Pain is located in upper abdomen with bandlike radiation. It is worse with meals. He has had nausea with vomiting, po intolerance for the last 5 days as well. He has also had liquid stools, non-bloody/non-mucoid. His daughter was recently sick with a URI, otherwise, no sick contacts. Patient denies fever, chills, chest pain, cough, SOB. ER Course: Imaging of the abdomen suspicious for SBO as well as ileal thickening. Admission requested. Principal Diagnosis 1. Small Bowel Obstruction 2. Jejunitis 3. Chest pain-ACS ruled out. Suspect referred pain from the small bowel obstruction 4. Hypomagnesemiareplaced 5. Accelerated BPcould have been contributing to his chest pain Discharge Exam General: Resting comfortably in his hospital bed. Appears chronically but not acutely ill. NAD. HEENT: Head is AT/NC. Buccal mucosa is moist and pink Neck: No JVD. Negative hepatojugular reflex Cardiac: RRR but very distant heart sounds Lungs: Breathing comfortably on 3 L of oxygen (wears 5L at baseline). Diminished breath sounds throughout without wheezes, rales or rhonchi Abdomen: Patient obese and difficult to examine. Significant abdominal striae on the abdomen. Does have significant diastases recti when leaning back. Normoactive bowel sounds x4. abd soft and NT throughout Extremities: + adiposity without true pitting edema Neuro: A&O X4. Cranial nerves II through XII are grossly intact. 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 but is peasant otherwise Discharge Data Allergies Allergy/AdvReac Type Severity Reaction Status Date / Time ceftriaxone Allergy Severe SHORTNESS Verified 03/22/21 15:19 OF BREATH lidocaine Allergy Severe SHORTNESS Verified 03/22/21 15:19 OF BREATH, diaphoretic, hives procaine Allergy Severe SHORTNESS Verified 03/22/21 15:19 OF BREATH, diaphoretic, hives amoxicillin Allergy Intermediate HIVES/FACIAL Verified 03/22/21 15:19 SWELLING clavulanic acid Allergy Intermediate HIVES/FACIAL Verified 03/22/21 15:19 SWELLING lisinopril Allergy Intermediate HIVES Verified 03/22/21 15:19 shellfish derived Allergy Verified 05/24/21 12:33 acetaminophen AdvReac Mild NAUSEA Verified 03/22/21 15:19 albuterol AdvReac Mild proair Verified 03/22/21 15:19 "trouble taking breaths" Fish Containing Products AdvReac Unknown Unknown Verified 03/22/21 15:19 Consultations 05/21/21 05:48 ED Decision to Admit Stat General surgery consulted and following Assessment & Plan (1) Small bowel obstruction: The patient is being admitted on the hospitalist service. We recommend proceeding as follows: Implement n.p.o. status. I discussed with the patient that he may require NG tube for decompression if he has worsening of his abdominal pain, worsening of his abdominal exam, or further nausea vomiting. As it has been approximately 9 hours since his most recent emesis I feel we can hold on this modality for the present time however. Cautious hydration with IV fluids. This may prove challenging due to the patient's known low ejection fraction Provide antiemetics Provide analgesics There appears to be an inflammatory process in patient's small bowel which may be causing his small bowel obstruction. If this persists a gastroenterology consult may be prudent to obtain Would be preferable to treat this in a conservative manner particularly in light of patient's numerous medical comorbidities Supervising Physician Co-Signing Physician Notes Patient seen and examined, labs and imaging reviewed, agree with above. 45-year-old morbidly obese male with known cardiomyopathy with 25% ejection fraction presents with abdominal pain. Is having nausea, vomiting, midepigastric abdominal pain, and loose stools. He has not had symptoms like this before. Only prior surgical history is laparoscopic cholecystectomy. No hernias. On exam he is afebrile stable vitals. Abdomen tender to palpation in the midepigastrium, no guarding or rebound. Labs normal. CT shows dilated loops of small bowel with some thickened areas of jejunum, and a partial bowel obstruction. Given his CT findings, this may represent an enteritis or inflammatory problem such as Crohn's disease. Would recommend GI consultation. May maintain conservative treatment for now, no NG tube as patient not actively vomiting. If surgical intervention were entertained, given his cardiomyopathy we would recommend transfer to a tertiary facility. Surgery will follow. repeat Surgical note on 05/23: Assessment & Plan (1) Small bowel obstruction: Plan: improved scheduled for SBFT today otherwise can start clears Admission and Anticipated Discharge Date Admission Date: May 21, 2021 Ordered Studies 05/21/21 03:10 CT abd pelvis IV con only Urgent IMPRESSION: 1. Mildly dilated gas and fluid-filled loops of proximal to mid small bowel. The distal ileal loops are decompressed. Therefore, this favors a partial small bowel obstruction. 2. Questionable thickened loop of jejunum within the left mid abdomen versus underdistention. A mild enteritis is not excluded. This may represent a transition point for the partial bowel obstruction as the small bowel loops proximal to this site are distended and fluid-filled. 3. No hydronephrosis. 4. Cholecystectomy. 5. Normal appendix. 6. Cardiomegaly with interstitial thickening and patchy groundglass densities within the lung bases most pronounced on the right. This favors mild asymmetric pulmonary edema. A viral pneumonia could also have a similar appearance in the appropriate clinical setting. Follow up KUB (05/21) : IMPRESSION: 1. Multiple dilated gas-filled loops of small bowel seen throughout the abdomen consistent with a small bowel obstruction. This is similar to the prior study. 2. Small amount of gas within the stomach which is not significantly distended. follow up KUB (05/22) IMPRESSION: Mildly dilated gas-filled loops of small bowel within the abdomen have improved in the interval. 05/23/21 07:00 FL small bowel follow through Routine IMPRESSION: 1. No evidence for small bowel obstruction. 2. Contrast extends from the stomach and into the colon in one hour and 25 minutes. Hospital Course (1) Small bowel obstruction: 45yo male with 4 days of mid abdominal pain, nausea/vomiting, liquid stools. CT findings suggestive of SBO with associated jejunitis - h/o lap viri in the past - reports having EGD in the past (with duodenal ulcer) and colonoscopy (WNL). No h/o IBD, no masses - afebrile. Normal WBC count - Has been treated conservatively with n.p.o. status for bowel rest, antiemetics and IV pain control. Has not needed NGT - following imaging trended - Has seemingly showed favorable response. Abdominal pain resolved. No longer having nausea/vomiting. Is passing flatus - SBFT which seems to have provided not only diagnostic but therapeutic response. He has normal transit time with no evidence of small bowel obstruction and is now having multiple bowel movements - Clear liquids initiated. Diet advance as tolerated. -brief episode of "red stools" overnight on 05/23. Personally did rectal today and he is hemoccult negative. Does have history of gastric ulcer but not highly suspicious of this given his negative Hemoccult, negative fecal polyp blood, and stable H&H. More suspicious that the "red stools" could be a result of the clear liquids and only Jell-O and red drinks that he is consumed over the past 24 hours. -Seen on daily rounds 05/24. Denies abdominal pain, nausea or vomiting. Continues to pass flatus and has had multiple BMs. Tolerating oral intake. At this point, he is medically and hemodynamically stable for discharge to home. Should maintain a low residue diet. Follow-up with established gastroen terologist regarding concern for jejunitissee below. May warrant capsule endoscopy at discretion of GI. (2) Jejunitis: - there is evidence of mucosal thickening at the jejunum on CT scan - pt has had EGD (multiple) in the past showing ulcers. C.Scope in the past WNL. No h/o ulcerative colitis or Crohn's - not suspicious that this is infectious with his normal WBC and afebrile state. No abx at this time - There does appear to be a transition point seen in this region on imaging. - SBFT has since been done showing no evidence of jejunitis - Ordered HLA-B27 and Celiac panel-- pending - discussed briefly with GI on 05/21- agreed with plan and will see patient in FU as nothing more to add at this point - Typically on Protonix. Needs GI prophylaxis but with very low mag, avoiding PPI and instead changed to Pepcid (3) Hypomagnesemia: - replaced and resolved - Uncertain if 2/2 to chronic protonix on board (which has since been changed to Pepcid) - Continue oral supplementation with recommendations for follow-up magnesium at the discretion of PCP (4) Chest pain: - Code purple called on 05/21 ~1230 - Pt c/o epigastric and LUQ pain with radiation into his chest and pain - Accelerated BP-- improved with SL NTG, Hydralazine. Perhaps this was contributing to his CP - tender in the epigastric region and LLQ with distention and a known SOB-- suspect his CP is referral from his SBO - does have a h/o NONISCHEMIC cardiomyopathy. Takes Imdur but for CHF and not angina. - cardiac enzymes cycled and remained negative - echocardiogram updated. 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 No need for cardiac intervention at this time (5) Diabetes mellitus type II, uncontrolled: Poorly controlled. Last VopW5F=89.5 on 03/12/21 - continue lantus at reduced dose given NPO status - Initially utilized regular insulin when he was n.p.o. but this has since been transitioned to analog - Continue carb consistent diet. Resume antihyperglycemic regimen as prior to hospitalization (6) Hypertension: - given NPO status, oral antihypertensive agents had been on hold (Imdur, Metoprolol, Entresto, Aldactone, Demedex) - while NPO, received scheduled IV lopressor, Lasiv, Hydralazine, and Nitro paste. - With initiation of oral intake, has since been transitioned back to his Imdur, metoprolol, Entresto, Aldactone, and Demadex (7) NICM (nonischemic cardiomyopathy): h/o mixed systolic and diastolic dysfunction-- EF 15-20% - Currently patient appears euvolemic - Received only very gentle IV hydration during n.p.o. status (total of 1 L) to avoid uncompensated CHF - P.o. medications initially held given n.p.o. status-- Takes Demedex/Aldactone routine for diuresis along with Entresto, Imdur and Metoprolol - Instead, utilized IV lasix, Lopressor and Hydralazine along with topical paste - With initiation of oral intake, has since been transitioned to his oral regimen - has ICD (8) Morbid obesity with BMI of 50.0-59.9, adult: Encourage lifestyle modification (9) Obstructive sleep apnea: CPAP qHS while inpatient but is nauseated or ends up with NGT-- use ONLY SUPPLEMENTAL O2 via NC Encourage outpatient use lovenox for DVt prophylaxis while in house code status discussed: Full Code have attempted to call the at the number provided by patient ([phone]). No answer. Multiple messages left. Patient seen and agreed upon by Dr. Gonzalez. Offered visiting nursespatient declined Total Time Total Time Spent Total Time Spent (In Minutes): 35 minutes including time spent with patient, coordination of care, discussion with attending provider, and discussion with case management. Along with preparation of documentation Discharge Plan Discharge Items Patient Disposition: Home - Self-Care Reason For Visit: SOB Discharge Diagnosis: 1. Small Bowel Obstruction 2. Jejunitis (inflammation of the small bowel) 3. Chest pain- suspect referred pain from the small bowel obstruction Activity: Resume your previous activity Non-emergency contact: Primary Care Provider and Supervisor Type Disk Quality Control Call non-emergency contact if: you have any medication questions and your symptoms worsen Follow-up/Referrals: Richa Burr CRNP [Primary Care Provider] - Diet: Carb Consistent or DM2 and Low Fiber Addtl Attending Provider Instructions: - you were hospitalized with abdominal and chest pain and found to have a small bowel obstruction - you did not have a heart attack and your heart was assessed during this hospitalization. With resolution of your bowel obstruction, your chest pain resolved. - your magnesium was low and replaced with IV magnesium while in house. The Protonix you were on could have been playing a role in this. Your Protonix has been changed to Pepcid and you have been started on oral Magnesium. You will need to have a follow up magnesium level in 2-4 weeks (at the discretion of your Family Physician) - There was concern of inflammation in your small bowel (at the site of the obstruction). Consider GI follow up as an outpatient- at discretion of your Family Physician. 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 (as fiber will delay movement through the gut and this can increase your risk of re-obstruction) - return to the ED for new or worsening symptoms Pending Studies at Discharge: Yes Studies:: Celiac Panel, HLA-B27 Stand-Alone Forms: My [facility] [employer] Medications and DC Order Prescriptions: New famotidine [Pepcid] 20 mg tablet 20 mg PO BID Qty: 60 RF: 0 magnesium oxide 400 mg (241.3 mg magnesium) tablet 400 mg PO DAILY Qty: 30 RF: 0 Continued aspirin [Aspirin Low Dose] 81 mg tablet,delayed release (DR/EC) 81 mg PO DAILY Qty: 90 RF: 3 atorvastatin 10 mg tablet 10 mg PO DAILY Qty: 90 RF: 3 budesonide-formoterol [Symbicort] 160-4.5 mcg/actuation HFA aerosol inhaler 2 inh inhalation BID Qty: 10.2 RF: 2 albuterol sulfate 90 mcg/actuation HFA aerosol inhaler 1 inh inhalation QID Qty: 8.5 RF: 2 Trulicity 3 mg/0.5 mL pen injector 3 mg SUBCUT WK Qty: 2 RF: 5 alcohol swabs [Alcohol Pads] Pads, Medicated 4 pad topical DAILY 90 Days Qty: 400 RF: 0 spironolactone [Aldactone] 25 mg tablet 75 mg PO QAM Qty: 90 RF: 5 Entresto 97-103 mg tablet 1 tab PO BID Qty: 60 RF: 5 metoprolol succinate 100 mg tablet extended release 24 hr 100 mg PO BID Qty: 60 RF: 5 albuterol sulfate 2.5 mg /3 mL (0.083 %) solution for nebulization 2.5 mg inhalation Q6H Qty: 15 RF: 2 clotrimazole 1 % cream 1 applic topical BID Qty: 45 RF: 0 Humalog Mix 50-50 KwikPen 100 unit/mL (50-50) insulin pen 40 unit subcut BID 30 Days Qty: 24 RF: 5 nitroglycerin [Nitrostat] 0.4 mg tablet, sublingual 0.4 mg sublingual UD PRN (Reason: Chest Pain) RF: 0 cholecalciferol (vitamin D3) [Vitamin D3] 50 mcg (2,000 unit) Tablet 50 mcg PO BID RF: 0 torsemide 20 mg tablet 40 mg PO BID Qty: 60 RF: 5 isosorbide mononitrate 30 mg tablet extended release 24 hr See Rx Instructions PO DAILY RF: 0 Discontinued esomeprazole magnesium [Nexium] 20 mg capsule,delayed release(/EC) 40 mg PO BID Qty: 60 RF: 5 Discharge Orders: Discharge Order (Routine); Ordered 05/24/21 Ordered By: Corie Talamantes/Other Patient Handouts: Low-Fiber Diet Admission Data Admit Date/Time: 05/21/21 06:16 Attending Provider: Shon Gonzalez Admit Provider: Ciarra Burr Primary Care Provider: Richa Burr. Other Providers: Ciarra Burr Coding Level of Care Code D/C DAY MANAGEMENT >30 MINS Diagnoses Small bowel obstruction K56.609 Jejunitis K52.9 Hypomagnesemia E83.42 Chest pain R07.9 Diabetes mellitus type II, uncontrolled E11.65 Glycemic state: with hyperglycemia Hypertension I10 Hypertension type: unspecified NICM (nonischemic cardiomyopathy) I42.8 Morbid obesity with BMI of 50.0-59.9, adult E66.01; Z68.43 Obstructive sleep apnea G47.33
[2021-05-25 02:20] LABS: IgA Serum 429 mg/dL (47-310); Tis Trans IgA <1.0 U/mL
== END 2021-05-24 14:34 | disposition home or self-care (01) ==
LOC: ED 02:42 → 3E 06:16 → INTOOBSV 06:16 → SUATTDRO 06:16 → 3E 08:59 → 2W 10:15 → 2E 13:25
DX: E11.3299 Type 2 diabetes mellitus with mild nonproliferative diabetic retinopathy without macular edema, unspecified eye; Z88.4 Allergy status to anesthetic agent; I42.8 Other cardiomyopathies; E83.42 Hypomagnesemia; Z79.51 Long term (current) use of inhaled steroids; Z79.899 Other long term (current) drug therapy; Z79.82 Long term (current) use of aspirin; Z88.8 Allergy status to other drugs, medicaments and biological substances; R07.9 Chest pain, unspecified; I10 Essential (primary) hypertension; G47.33 Obstructive sleep apnea (adult) (pediatric); Z88.1 Allergy status to other antibiotic agents; K56.609 Unspecified intestinal obstruction, unspecified as to partial versus complete obstruction; E11.65 Type 2 diabetes mellitus with hyperglycemia; Z68.43 Body mass index [BMI] 50.0-59.9, adult; Z79.4 Long term (current) use of insulin

== ENCOUNTER 2021-06-16 13:00 | Inpatient (IN) ==
--- NOTE | 2021-06-16 13:56 | XRay Report ---
XR chest 1V portable HISTORY: Atypical Chest Pain COMPARISON: Chest 05/21/2021. FINDINGS: No pneumothorax. There is left-sided single lead pacemaker. Cardiac megaly with progressive interstitial/vascular thickening consistent with mild pulmonary edema. Hazy appearance to lung bases may represent layering pleural effusions or airspace opacities. IMPRESSION: 1. Interval progression of the mild pulmonary edema. 2. Hazy appearance to the lung bases may represent layering pleural fluid or airspace opacities. ACT 112: Negative or not required by law. Electronically signed by: Andrea Bear M.D. 06/16/2021 1:55 PM
--- NOTE | 2021-06-16 14:03 | Emergency Department Note ---
History of Present Illness General Chief Complaint: Cough Time Seen by Provider: 06/16/21 13:34 History of Present Illness Provider Complaint: shortness of breath Onset (ago): week(s) (1) Severity: similar to previous episodes Consistency/Duration: + progressively worsening Relieved By: + oxygen, + rest and + upright position Exacerbated By: + lying flat, + exertion and + coughing Context: + medication noncompliance Known history of: COPD and congestive heart failure Associated symptoms: + chest pain, + cough, + sputum production, + orthopnea, + hemoptysis and + chest congestion Related Data Home oxygen amount: other (5 L NC) Home Medications Medication Instructions Recorded Confirmed Type nitroglycerin 0.4 mg sublingual 0.4 mg SUBLINGUAL UD PRN 04/24/19 06/16/21 History tablet (Nitrostat) cholecalciferol (vitamin D3) 50 100 mcg PO BID 10/04/19 06/16/21 History mcg (2,000 unit) tablet (Vitamin D3) albuterol sulfate 90 mcg/actuation 1 inh INHALATION QID #8.5 g 12/09/20 06/16/21 Rx aerosol inhaler albuterol sulfate 2.5 mg INHALATION Q6H #15 ml 02/21/21 06/16/21 Rx metoprolol succinate 100 mg 100 mg PO BID #60 tab 02/21/21 06/16/21 Rx tablet,extended release 24 hr sacubitril 97 mg-valsartan 103 mg 1 tab PO BID #60 tab 02/21/21 06/16/21 Rx tablet (Entresto) spironolactone 25 mg tablet 75 mg PO QAM #90 tab 02/21/21 06/16/21 Rx (Aldactone) torsemide 20 mg tablet 40 mg PO BID #60 tab 02/26/21 06/16/21 Rx alcohol swabs (Alcohol Pads) 4 pad TOPICAL DAILY 90 Days #400 ea 03/22/21 06/15/21 Rx dulaglutide 3 mg/0.5 mL 3 mg SUBCUT WK #2 ml 03/22/21 06/16/21 Rx subcutaneous pen injector insulin lispro protamine-lispro 40 unit SUBCUT BID 30 Days #24 ml 03/22/21 06/16/21 Rx 100 unit/mL (50-50) subcutaneous pen (Humalog Mix 50-50 KwikPen) isosorbide mononitrate 30 mg See Rx Instructions .ROUTE 03/22/21 06/16/21 H istory tablet,extended release 24 hr .COMPLEX tab Symbicort 160 mcg-4.5 2 inh INHALATION BID #10.2 g NS 05/04/21 06/16/21 Rx mcg/actuation HFA aerosol inhaler (budesonide-formoterol) esomeprazole magnesium 20 mg 40 mg PO BID #60 cap 06/15/21 06/16/21 Rx capsule,delayed release (Nexium) aspirin 81 mg tablet,delayed 81 mg PO QAM 06/16/21 06/16/21 History release (Aspirin Low Dose) famotidine 20 mg tablet 20 mg PO QAM 06/16/21 06/16/21 History magnesium oxide 400 mg (241.3 mg 400 mg PO QAM 06/16/21 06/16/21 History magnesium) tablet Allergies Allergy/AdvReac Type Severity Reaction Status Date / Time ceftriaxone Allergy Severe SHORTNESS Verified 06/16/21 15:02 OF BREATH lidocaine Allergy Severe SHORTNESS Verified 06/16/21 15:02 OF BREATH, diaphoretic, hives procaine Allergy Severe SHORTNESS Verified 06/16/21 15:02 OF BREATH, diaphoretic, hives amoxicillin Allergy Intermediate HIVES/FACIAL Verified 06/16/21 15:02 SWELLING clavulanic acid Allergy Intermediate HIVES/FACIAL Verified 06/16/21 15:02 SWELLING lisinopril Allergy Intermediate HIVES Verified 06/16/21 15:02 shellfish derived Allergy Verified 06/16/21 15:02 acetaminophen AdvReac Mild NAUSEA Verified 06/16/21 15:02 albuterol AdvReac Mild proair Verified 06/16/21 15:02 "trouble taking breaths" Fish Containing Products AdvReac Unknown Unknown Verified 06/16/21 15:02 Past Med/Surg History Medical History Bacteremia Chronic respiratory failure Dilatation of thoracic aorta Fatty liver Hearing loss of both ears Housing instability, currently housed, at risk for homelessness Hx of local infection of skin and subcutaneous tissue Iliac aneurysm Lung nodule NICM (nonischemic cardiomyopathy) Pt admitted for elective ICD. Underwent procedure without any complications monitored over night and discharged home. 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 Beliefs That Will Affect Care: None marital status: Current Living Situation: Spouse current occupational status: unemployed How many Children do You have: 0 Feels Safe at Home: Yes Childhood Exposure to Second-Hand Smoke: Yes Dental Care, Regularly: Yes Physical Activity Frequency: Does not Exercise Assistive Devices: Oxygen - Continuous and Wheelchair Review of Systems A total of 10 systems reviewed and were otherwise negative Physical Exam Vital Signs: Vital Signs - 24 hr 06/16/21 13:13 06/16/21 13:16 06/16/21 13:30 Temperature 36.8 C Temperature Source Oral Pulse Rate 110 H 112 H 96 H Pulse Rate [Apical ] Pulse Rate from Sp O2 Sensor 112 H 96 H Pulse Rhythm Regular Pulse Rhythm [Apic al] Pulse Strength Normal Pulse Strength [Ap ical] Respiratory Rate 26 H 34 H 21 Respiratory Effort / Characteristics Spontaneous Short of Breath SOB on E xertion Respiratory Depth Normal Respiratory Patter n Tachypnea Blood Pressure 174/121 H Blood Pressure [Ri ght Arm] Blood Pressure Ly n 138 Blood Pressure Ly n [Right Arm] Blood Pressure Pos ition Sitting Blood Pressure Pos ition [Right Arm] Pulse Oximetry 97 97 98 Oxygen Delivery Me thod Nasal Cannula Oxygen Flow Rate 8 Fraction of Inspir ed Oxygen SaO2/FiO2 Ratio Sepsis Recent Feve r Within 48 Hours No Sepsis New/Unexpla ined Change in Men kyree Status No Sepsis Action Take n by Nursing No Action Required Oxygen Flow Rate - Titration Pulse Oximetry Pos t Tiitration 05/05/22 13:55 06/16/21 13:56 06/16/21 14:00 Temperature Temperature Source Pulse Rate 118 H 107 H Pulse Rate [Apical ] Pulse Rate from Sp O2 Sensor 107 H Pulse Rhythm Regular Pulse Rhythm [Apic al] Pulse Strength Pulse Strength [Ap ical] Respiratory Rate 26 H 24 Respiratory Effort / Characteristics Respiratory Depth Respiratory Patter n Blood Pressure Blood Pressure [Ri ght Arm] Blood Pressure Ly n Blood Pressure Ly n [Right Arm] Blood Pressure Pos ition Blood Pressure Pos ition [Right Arm] Pulse Oximetry 96 97 98 Oxygen Delivery Me thod Nasal Cannula Nasal Cannula Oxygen Flow Rate 5 8 Fraction of Inspir ed Oxygen SaO2/FiO2 Ratio Sepsis Recent Feve r Within 48 Hours Sepsis New/Unexpla ined Change in Men kyree Status Sepsis Action Take n by Nursing Oxygen Flow Rate - Titration 5 Pulse Oximetry Pos t Tiitration 95 06/16/21 14:18 06/16/21 14:30 06/16/21 15:00 Temperature Temperature Source Pulse Rate 98 H 87 Pulse Rate [Apical ] 97 H 97 H 77 Pulse Rate from Sp O2 Sensor 100 H 93 H Pulse Rhythm Pulse Rhythm [Apic al] Regular Regular Regular Pulse Strength Pulse Strength [Ap ical] Normal Normal Normal Respiratory Rate 24 12 28 H Respiratory Effort / Characteristics Non-Labored Sponta neous Non-Labored Sponta neous Non-Labored Sponta neous Respiratory Depth Normal Normal Normal Respiratory Patter n Regular Regular Regular Blood Pressure Blood Pressure [Ri ght Arm] 176/115 H 184/123 H 142/107 H Blood Pressure Ly n Blood Pressure Ly n [Right Arm] 135 143 118 Blood Pressure Pos ition Blood Pressure Pos ition [Right Arm] Sitting Sitting Sitting Pulse Oximetry 95 95 94 Oxygen Delivery Me thod Nasal Cannula Nasal Cannula Nasal Cannula Oxygen Flow Rate 5 5 5 Fraction of Inspir ed Oxygen SaO2/FiO2 Ratio Sepsis Recent Feve r Within 48 Hours Sepsis New/Unexpla ined Change in Men kyree Status Sepsis Action Take n by Nursing Oxygen Flow Rate - Titration Pulse Oximetry Pos t Tiitration 06/16/21 15:30 06/16/21 15:36 06/16/21 16:00 Temperature Temperature Source Pulse Rate 102 H 88 Pulse Rate [Apical ] 102 H Pulse Rate from Sp O2 Sensor 104 H Pulse Rhythm Pulse Rhythm [Apic al] Regular Pulse Strength Pulse Strength [Ap ical] Normal Respiratory Rate 27 H 24 30 H Respiratory Effort / Characteristics Non-Labored Sponta neous Respiratory Depth Normal Respiratory Patter n Regular Blood Pressure Blood Pressure [Ri ght Arm] 176/116 H Blood Pressure Ly n Blood Pressure Ly n [Right Arm] 136 Blood Pressure Pos ition Blood Pressure Pos ition [Right Arm] Sitting Pulse Oximetry 94 94 Oxygen Delivery Me thod Nasal Cannula Oxygen Flow Rate 5 Fraction of Inspir ed Oxygen SaO2/FiO2 Ratio Sepsis Recent Feve r Within 48 Hours Sepsis New/Unexpla ined Change in Men kyree Status Sepsis Action Take n by Nursing Oxygen Flow Rate - Titration Pulse Oximetry Pos t Tiitration 06/16/21 16:26 06/16/21 16:50 06/16/21 17:00 Temperature Temperature Source Pulse Rate 128 H 108 H Pulse Rate [Apical ] Pulse Rate from Sp O2 Sensor 129 H Pulse Rhythm Pulse Rhythm [Apic al] Pulse Strength Pulse Strength [Ap ical] Respiratory Rate 33 H 22 Respiratory Effort / Characteristics Spontaneous Respiratory Depth Normal Respiratory Patter n Tachypnea Blood Pressure Blood Pressure [Ri ght Arm] Blood Pressure Ly n Blood Pressure Ly n [Right Arm] Blood Pressure Pos ition Blood Pressure Pos ition [Right Arm] Pulse Oximetry 98 99 Oxygen Delivery Me thod Oxygen Flow Rate Fraction of Inspir ed Oxygen 40 SaO2/FiO2 Ratio Sepsis Recent Feve r Within 48 Hours Sepsis New/Unexpla ined Change in Men kyree Status Sepsis Action Take n by Nursing Oxygen Flow Rate - Titration Pulse Oximetry Pos t Tiitration 06/16/21 17:01 06/16/21 17:30 06/16/21 17:41 Temperature Temperature Source Pulse Rate 93 H Pulse Rate [Apical ] 103 H 86 Pulse Rate from Sp O2 Sensor 92 H Pulse Rhythm Pulse Rhythm [Apic al] Regular Regular Pulse Strength Pulse Strength [Ap ical] Normal Normal Respiratory Rate 22 26 H 20 Respiratory Effort / Characteristics Non-Labored Sponta neous Non-Labored Sponta neous Respiratory Depth Normal Normal Respiratory Patter n Regular Regular Blood Pressure Blood Pressure [Ri ght Arm] 159/119 H 153/108 H Blood Pressure Ly n Blood Pressure Ly n [Right Arm] 132 123 Blood Pressure Pos ition Blood Pressure Pos ition [Right Arm] Sitting Sitting Pulse Oximetry 98 97 98 Oxygen Delivery Me thod BiPAP BiPAP Oxygen Flow Rate Fraction of Inspir ed Oxygen 40 40 SaO2/FiO2 Ratio 245 245 Sepsis Recent Feve r Within 48 Hours Sepsis New/Unexpla ined Change in Men kyree Status Sepsis Action Take n by Nursing Oxygen Flow Rate - Titration Pulse Oximetry Pos t Tiitration 06/16/21 18:00 06/16/21 19:00 06/16/21 20:31 Temperature Temperature Source Pulse Rate 113 H 101 H Pulse Rate [Apical ] 96 H Pulse Rate from Sp O2 Sensor 112 H Pulse Rhythm Pulse Rhythm [Apic al] Pulse Strength Pulse Strength [Ap ical] Respiratory Rate 23 22 28 H Respiratory Effort / Characteristics Spontaneous Respiratory Depth Normal Respiratory Patter n Regular Tachypnea Blood Pressure 169/124 H Blood Pressure [Ri ght Arm] Blood Pressure Ly n 139 Blood Pressure Ly n [Right Arm] Blood Pressure Pos ition Blood Pressure Pos ition [Right Arm] Pulse Oximetry 97 97 97 Oxygen Delivery Me thod BiPAP Oxygen Flow Rate Fraction of Inspir ed Oxygen 30 30 SaO2/FiO2 Ratio Sepsis Recent Feve r Within 48 Hours Sepsis New/Unexpla ined Change in Men kyree Status Sepsis Action Take n by Nursing Oxygen Flow Rate - Titration Pulse Oximetry Pos t Tiitration Physical Exam: Physical Exam GENERAL: He is oriented to person, place, and time. He appears well-developed and well-nourished. He does not appear distressed. HENT: Exam performed. - Head: Normocephalic and atraumatic. - Right Ear: External ear normal. No mastoid tenderness. - Left Ear: External ear normal. No mastoid tenderness. - Mouth/Throat: The oropharynx is clear and moist. No trismus in the jaw. No dental abscesses or uvula swelling. No oropharyngeal exudate or tonsillar abscesses. Missing teeth EYES: Conjunctivae and EOM are normal. Pupils are equal, round, and reactive to light. Right eye exhibits no discharge. Left eye exhibits no discharge. No scleral icterus. NECK: Normal range of motion. Neck supple. No JVD present. No spinous process tenderness present. No carotid bruit present. No rigidity. No tracheal deviation and normal range of motion present. No Brudzinski's sign and no Kernig's sign noted. CV: Tachycardic rate, regular rhythm, normal heart sounds and intact distal pulses. There is no peripheral edema. Palpable radial pulses bue. PULM/CHEST: Rales bilaterally ABD: The abdomen is soft morbidly obese Bowel sounds are normal. He has no distension. No mass is present. There is no tenderness. There is no rebound, no guarding, no Banks's sign and no tenderness at McBurney's point. Rovsig negative. MUSC/SKEL: Normal range of motion. There is no peripheral edema, tenderness or deformity. LYMPH: No cervical adenopathy. NEURO: He is alert and oriented to person, place, and time. He has normal strength. No cranial nerve deficit or sensory deficit. Coordination and gait normal. GCS eye subscore is 4. GCS verbal subscore is 5. GCS motor subscore is 6. Cerebellar tests wnl. SKIN: Skin is warm and dry. He is not diaphoretic. PSYCH: He has a normal mood and affect. Behavior is normal. Judgment and thought content normal. Course Course 1334: The patient was evaluated in room B3. A complete history and physical exam was performed Cardiac monitoring: An order was placed for continuous cardiac monitoring. The monitor shows a rate of 110 with sinus tachycardia rhythm 1430: Patient is fluid overloaded on chest x-ray. She has hypertensive. Sublingual nitroglycerin and Lasix ordered for the patient. 1530: Vital signs stable on supplemental oxygen via nasal cannula 5 L his home dose. Patient refused to go to CAT scan as he states he does not want to lie do wn and feels nervous doing so. Ativan ordered for the patient explained to him with a chief complaint of hemoptysis is very important that we obtain a CT scan. Patient is agreement. 1620: Vital signs stable. Patient states he is feeling more short of breath. Requesting BiPAP. BiPAP ordered for the patient. Magnesium ordered for the patient to replete his hypomagnesemia 1750: After exam of the patient's room her procedure is being done nursing staff found me and for me that the patient was having runs of V. tach. The also informed the patient was increasingly lethargic. Accu-Chek within normal limits. ABG ordered for the patient. Telemetry strip was reviewed and the patient is having V. tach versus bigeminy. Amiodarone bolus and drip ordered for the patient. 1810: Spoke with Dr. Cary on-call [facility] cardiology. He states he does the patient and his has history of noncompliance. He agrees that the patient should be started on amiodarone bolus and drip. Discussed with Dr. Sanabria ICU who will come down to evaluate the patient. POC ABG within normal limits. 1850: Patient is more alert. ABG within normal limits. Refusing De Dios catheter. Standing up to urinate. Patient will be admitted to PCU no need for ICU after evaluation by Dr. Sanabria at bedside. Labs show white blood cell count of 11.75 hemoglobin 13.5. High-sensitivity troponin negative. BNP 592. Patient will be admitted to the [facility] hospitalist team. CT of the head within normal limits. CTA of the chest shows cardiomegaly with suggestive pulmonary arterial hypertension limited evaluation of segmental subsegmental pulmonary arterial branches secondary to motion artifact. Artifact versus tiny pulmonary embolus within subsegmental branch of the right lower lobe correlation with vascular ultrasounds were recommended. CTA also showed additional bilateral groundglass and consolidative opacities to superimposed pneumonia. Discussed case with Dr. Sky's [facility] hospitalist team. [facility] hospitalist and I both agree that we will hold antibiotics at this time as patient does not have any fevers, no leukocytosis, lactic acid within normal limits procalcitonin within normal limits. Hospitalist and I also agree also hold off on any anticoagulation as it is thought that the patient might have artifact more in the right lower lobe will correlate with ultrasound ordering by hospitalist for rule out DVT. Administered Medications Amiodarone HCl/Dextrose (Nexterone / D5w) 360 mg in 200 mls @ 33.333 mls/hr IV ONE ONE Stop: 06/17/21 00:01 Last Admin: 06/16/21 18:29 Dose: 33.3 mls/hr Documented by: [id number] Cosigned by: [id number] Discontinued Medications Amiodarone HCl (Amiodarone Iv Bolus & Drip) 1 ea IV NOW STA; Protocol Stop: 06/16/21 17:52 Last Admin: 06/16/21 18:13 Dose: 1 ea Documented by: [id number] Furosemide (Furosemide 40 Mg/4 Ml Vial) 40 mg IV ONE ONE Stop: 06/16/21 14:35 Last Admin: 06/16/21 15:21 Dose: 40 mg Documented by: [id number] Furosemide (Furosemide 40 Mg/4 Ml Vial) 40 mg IV ONE ONE Stop: 06/16/21 18:30 Last Admin: 06/16/21 19:27 Dose: 40 mg Documented by: [id number] Magnesium Sulfate/Dextrose (Magnesium Sulfate / D5w) 1 gm in 100 mls @ 100 mls/hr IV Q1H SUKHWINDER Stop: 06/16/21 18:20 Last Admin: 06/16/21 18:13 Dose: 100 mls/hr Documented by: [id number] Infusion: 06/16/21 18:12 Dose: 0 mls/hr Documented by: [id number] Admin: 06/16/21 17:00 Dose: 100 mls/hr Documented by: [id number] Amiodarone HCl/Dextrose (Nexterone / D5w) 150 mg in 100 mls @ 600 mls/hr IV NOW STA Stop: 06/16/21 18:00 Last Infusion: 06/16/21 18:29 Dose: 0 mls/hr Documented by: [id number] Cosigned by: [id number] Admin: 06/16/21 18:12 Dose: 600 mls/hr Documented by: [id number] Cosigned by: [id number] Ioversol (Optiray 320 125ml) 120 ml IV ONCE ONE Stop: 06/16/21 15:24 Last Admin: 06/16/21 15:13 Dose: 120 ml Documented by: [id number] Lorazepam (Lorazepam 2 Mg/1 Ml Vial) 1 mg IV NOW STA Stop: 06/16/21 15:32 Last Admin: 06/16/21 16:27 Dose: 1 mg Documented by: [id number] Miscellaneous (Stat Iv Infusion Titration Per Protocol) 1 ea N/A NOW STA Stop: 06/16/21 17:52 Last Admin: 06/16/21 18:13 Dose: 1 ea Documented by: [id number] Nitroglycerin (Nitroglycerin Sl 0.4 Mg/Tab Tab) 0.4 mg SL NOW STA Stop: 06/16/21 14:35 Last Admin: 06/16/21 15:21 Dose: 0.4 mg Documented by: [id number] Medical Decision Making Laboratory Data Result diagrams: 06/16/21 13:54 06/16/21 13:54 Lab Results 06/16/21 06/16/21 06/16/21 Range/Units 13:49 13:54 13:54 WBC (4.8-10.8) K/uL RBC (4.7-6.1) M/uL Hgb (14.0-18.0) g/dL POC Hgb (14.0-18.0) g/dl Hct (42-52) % POC Hct (42-52) % MCV (80-100) fL MCH (25-34) pg MCHC (32-36) g/dL RDW Std Deviation (36.4-46.3) fL RDW Coeff of Zoltan (11.5-14.5) % Plt Count (130-400) K/uL MPV (7.4-10.4) fL Immature Gran % (Auto) % Neut % (Auto) % Lymph % (Auto) % [place] % (Auto) % Eos % (Auto) % Baso % (Auto) % Neut # (Auto) (1.4-6.5) K/uL Lymph # (Auto) (1.2-3.4) K/uL [place] # (Auto) (0.11-0.59) K/uL Eos # (Auto) (0-0.5) K/uL Baso # (Auto) (0-0.2) K/uL Immature Gran # (Auto) (0.00-0.02) K/uL PT (9.0-12.0) Seconds INR (0.9-1.1) APTT (21.0-31.0) Seconds PTT Ratio POC pH (7.35-7.45) POC pCO2 (35-46) mmHg POC pO2 (80-95) mmHg POC HCO3 (19-24) halie/L POC Total CO2 (24-31) mmol/L POC Base Excess (-9-1.8) halie/L POC ABG O2 Sat (90-95) % VBG pH (7.36-7.41) VBG pCO2 (38-50) mmHg VBG pO2 mmHg VBG HCO3 mmol/L VBG O2 Saturation % VBG Base Excess mEq/L Barometric Pressure mm/Hg POC Sodium (135-144) mmol/L Sodium 137 (136-145) mmol/L POC Potassium (3.3-5.0) mmol/L Potassium 4.2 (3.5-5.1) mmol/L Chloride 103 (98-107) mmol/L Carbon Dioxide 28 (21-32) mmol/L Anion Gap 6 (3-11) BUN 10 (6-23) mg/dl Creatinine 0.73 (0.6-1.4) mg/dl Est Cr Clr Drug Dosing 198.0 ml/min Est GFR ( Amer) 130.7 ml/min Est GFR (Non-Af Amer) 112.8 ml/min BUN/Creatinine Ratio 13.7 (10-20) Glucose 181 H (70-99(Fasting)) mg/dl POC Glucose (70-99) mg/dl Lactate (0.4-2.0) mmol/L Calcium 8.6 (8.5-10.1) mg/dl Magnesium 1.5 L (1.7-2.4) mg/dl Troponin I High Sens 16.0 (0-20) pg/ml B-Natriuretic Peptide 592 H (0-100) pg/ml Lipase 17 (11-82) U/L Prolactin ng/ml SARS-CoV-2 (PCR) NEGATIVE (Negative) Influenza Type A (PCR) Negative (Neg) Influenza Type B (PCR) Negative (Neg) RSV (RT-PCR) Negative (Neg) 06/16/21 06/16/21 06/16/21 Range/Units 13:54 13:54 13:54 WBC (4.8-10.8) K/uL RBC (4.7-6.1) M/uL Hgb (14.0-18.0) g/dL POC Hgb (14.0-18.0) g/dl Hct (42-52) % POC Hct (42-52) % MCV (80-100) fL MCH (25-34) pg MCHC (32-36) g/dL RDW Std Deviation (36.4-46.3) fL RDW Coeff of Zoltan (11.5-14.5) % Plt Count (130-400) K/uL MPV (7.4-10.4) fL Immature Gran % (Auto) % Neut % (Auto) % Lymph % (Auto) % [place] % (Auto) % Eos % (Auto) % Baso % (Auto) % Neut # (Auto) (1.4-6.5) K/uL Lymph # (Auto) (1.2-3.4) K/uL [place] # (Auto) (0.11-0.59) K/uL Eos # (Auto) (0-0.5) K/uL Baso # (Auto) (0-0.2) K/uL Immature Gran # (Auto) (0.00-0.02) K/uL PT (9.0-12.0) Seconds INR (0.9-1.1) APTT (21.0-31.0) Seconds PTT Ratio POC pH (7.35-7.45) POC pCO2 (35-46) mmHg POC pO2 (80-95) mmHg POC HCO3 (19-24) halie/L POC Total CO2 (24-31) mmol/L POC Base Excess (-9-1.8) halie/L POC ABG O2 Sat (90-95) % VBG pH 7.38 (7.36-7.41) VBG pCO2 49 (38-50) mmHg VBG pO2 44 mmHg VBG HCO3 28 mmol/L VBG O2 Saturation 77.8 % VBG Base Excess 2.4 mEq/L Barometric Pressure 733.5 mm/Hg POC Sodium (135-144) mmol/L Sodium (136-145) mmol/L POC Potassium (3.3-5.0) mmol/L Potassium (3.5-5.1) mmol/L Chloride (98-107) mmol/L Carbon Dioxide (21-32) mmol/L Anion Gap (3-11) BUN (6-23) mg/dl Creatinine (0.6-1.4) mg/dl Est Cr Clr Drug Dosing ml/min Est GFR ( Amer) ml/min Est GFR (Non-Af Amer) ml/min BUN/Creatinine Ratio (10-20) Glucose (70-99(Fasting)) mg/dl POC Glucose (70-99) mg/dl Lactate 0.9 (0.4-2.0) mmol/L Calcium (8.5-10.1) mg/dl Magnesium (1.7-2.4) mg/dl Troponin I High Sens (0-20) pg/ml B-Natriuretic Peptide (0-100) pg/ml Lipase (11-82) U/L Prolactin 6.30 ng/ml SARS-CoV-2 (PCR) (Negative) Influenza Type A (PCR) (Neg) Influenza Type B (PCR) (Neg) RSV (RT-PCR) (Neg) 06/16/21 06/16/21 06/16/21 Range/Units 13:54 13:54 15:40 WBC 11.75 H (4.8-10.8) K/uL RBC 4.96 (4.7-6.1) M/uL Hgb 13.5 L (14.0-18.0) g/dL POC Hgb (14.0-18.0) g/dl Hct 41.9 L (42-52) % POC Hct (42-52) % MCV 84.5 (80-100) fL MCH 27.2 (25-34) pg MCHC 32.2 (32-36) g/dL RDW Std Deviation 46.9 H (36.4-46.3) fL RDW Coeff of Zoltan 15.3 H (11.5-14.5) % Plt Count 224 (130-400) K/uL MPV 9.7 (7.4-10.4) fL Immature Gran % (Auto) 0.5 % Neut % (Auto) 75.9 % Lymph % (Auto) 17.4 % [place] % (Auto) 5.1 % Eos % (Auto) 0.9 % Baso % (Auto) 0.2 % Neut # (Auto) 8.93 H (1.4-6.5) K/uL Lymph # (Auto) 2.04 (1.2-3.4) K/uL [place] # (Auto) 0.60 H (0.11-0.59) K/uL Eos # (Auto) 0.10 (0-0.5) K/uL Baso # (Auto) 0.02 (0-0.2) K/uL Immature Gran # (Auto) 0.06 H (0.00-0.02) K/uL PT 10.8 (9.0-12.0) Seconds INR 1.0 (0.9-1.1) APTT 25.3 (21.0-31.0) Seconds PTT Ratio 0.9 POC pH (7.35-7.45) POC pCO2 (35-46) mmHg POC pO2 (80-95) mmHg POC HCO3 (19-24) halie/L POC Total CO2 (24-31) mmol/L POC Base Excess (-9-1.8) halie/L POC ABG O2 Sat (90-95) % VBG pH (7.36-7.41) VBG pCO2 (38-50) mmHg VBG pO2 mmHg VBG HCO3 mmol/L VBG O2 Saturation % VBG Base Excess mEq/L Barometric Pressure mm/Hg POC Sodium (135-144) mmol/L Sodium (136-145) mmol/L POC Potassium (3.3-5.0) mmol/L Potassium (3.5-5.1) mmol/L Chloride (98-107) mmol/L Carbon Dioxide (21-32) mmol/L Anion Gap (3-11) BUN (6-23) mg/dl Creatinine (0.6-1.4) mg/dl Est Cr Clr Drug Dosing ml/min Est GFR ( Amer) ml/min Est GFR (Non-Af Amer) ml/min BUN/Creatinine Ratio (10-20) Glucose (70-99(Fasting)) mg/dl POC Glucose (70-99) mg/dl Lactate (0.4-2.0) mmol/L Calcium (8.5-10.1) mg/dl Magnesium (1.7-2.4) mg/dl Troponin I High Sens 14.9 (0-20) pg/ml B-Natriuretic Peptide (0-100) pg/ml Lipase (11-82) U/L Prolactin ng/ml SARS-CoV-2 (PCR) (Negative) Influenza Type A (PCR) (Neg) Influenza Type B (PCR) (Neg) RSV (RT-PCR) (Neg) 06/16/21 06/16/21 Range/Units 17:57 18:07 WBC (4.8-10.8) K/uL RBC (4.7-6.1) M/uL Hgb (14.0-18.0) g/dL POC Hgb 13.6 L (14.0-18.0) g/dl Hct (42-52) % POC Hct 40 L (42-52) % MCV (80-100) fL MCH (25-34) pg MCHC (32-36) g/dL RDW Std Deviation (36.4-46.3) fL RDW Coeff of Zoltan (11.5-14.5) % Plt Count (130-400) K/uL MPV (7.4-10.4) fL Immature Gran % (Auto) % Neut % (Auto) % Lymph % (Auto) % [place] % (Auto) % Eos % (Auto) % Baso % (Auto) % Neut # (Auto) (1.4-6.5) K/uL Lymph # (Auto) (1.2-3.4) K/uL [place] # (Auto) (0.11-0.59) K/uL Eos # (Auto) (0-0.5) K/uL Baso # (Auto) (0-0.2) K/uL Immature Gran # (Auto) (0.00-0.02) K/uL PT (9.0-12.0) Seconds INR (0.9-1.1) APTT (21.0-31.0) Seconds PTT Ratio POC pH 7.41 (7.35-7.45) POC pCO2 46 (35-46) mmHg POC pO2 104 H (80-95) mmHg POC HCO3 29 H (19-24) halie/L POC Total CO2 30 (24-31) mmol/L POC Base Excess 4.0 H (-9-1.8) halie/L POC ABG O2 Sat 98.0 H (90-95) % VBG pH (7.36-7.41) VBG pCO2 (38-50) mmHg VBG pO2 mmHg VBG HCO3 mmol/L VBG O2 Saturation % VBG Base Excess mEq/L Barometric Pressure mm/Hg POC Sodium 136 (135-144) mmol/L Sodium (136-145) mmol/L POC Potassium 3.9 (3.3-5.0) mmol/L Potassium (3.5-5.1) mmol/L Chloride (98-107) mmol/L Carbon Dioxide (21-32) mmol/L Anion Gap (3-11) BUN (6-23) mg/dl Creatinine (0.6-1.4) mg/dl Est Cr Clr Drug Dosing ml/min Est GFR ( Amer) ml/min Est GFR (Non-Af Amer) ml/min BUN/Creatinine Ratio (10-20) Glucose (70-99(Fasting)) mg/dl POC Glucose 158 H (70-99) mg/dl Lactate (0.4-2.0) mmol/L Calcium (8.5-10.1) mg/dl Magnesium (1.7-2.4) mg/dl Troponin I High Sens (0-20) pg/ml B-Natriuretic Peptide (0-100) pg/ml Lipase (11-82) U/L Prolactin ng/ml SARS-CoV-2 (PCR) (Negative) Influenza Type A (PCR) (Neg) Influenza Type B (PCR) (Neg) RSV (RT-PCR) (Neg) Imaging Data Radiologist's Impression: Head CT 06/16/21 13:35 CT SCAN OF THE BRAIN WITHOUT IV CONTRAST CLINICAL HISTORY: Seizure. COMPARISON STUDY: CT of the brain dated 07/04/2020. TECHNIQUE: Unenhanced axial CT scan of the brain is performed from the vertex to the skull base. A dose lowering technique was utilized adhering to the principles of ALARA. The vertex was scanned twice due to motion artifact. CT DOSE: 2787.41 mGy.cm FINDINGS: Brain parenchyma: There is mild microangiopathic change. There is no hemorrhage, mass effect, or evidence of acute territorial ischemia by CT criteria. Adams- white matter differentiation is preserved. No extra-axial fluid collection is seen. Ventricles, sulci, cisterns: Normal in configuration. Intracranial vasculature: There is atherosclerotic calcification of the vertebral arteries. Calvarium: Unremarkable. Sinuses and mastoids: The visualized paranasal sinuses are clear. There is trace left mastoid effusion. The right mastoid air cells are well pneumatized. Orbits: The bony orbits are grossly intact. IMPRESSION: No acute intracranial abnormality. ACT 112: Negative or not required by law. Electronically signed by: Abhilash Carpio M.D. 06/16/2021 4:48 PM Chest CTA 06/16/21 13:36 CT angio chest PE protocol HISTORY: 45 years-old Male with Chest Pain, eval for PE. Acute chest pain with shortness of breath TECHNIQUE: Multiple CTA images of the chest were obtained after the intravenous administration of 120 ml Optiray. Coronal and sagittal MIPS were obtained from the axial data set and were submitted for review. All measurements were obtained according to NASCET criteria. A dose lowering technique was utilized adhering to the principles of ALARA. COMPARISON: CTA chest 03/12/2021 FINDINGS: CTA: There is adequate opacification of the pulmonary arteries to the level of the subsegmental branches without convincing evidence of acute pulmonary embolism. thoracic aorta moderate cardiomegaly with left subclavian pacer. No pericardial effusion. Unchanged dilation of the ascending thoracic aorta at the level of the main pulmonary artery measuring up to 4.4 x 4.4 cm. There is no dissection identified. Dilation of the main pulmonary artery measures up to 4.2 cm. Respiratory motion artifact limits the study. There are questioned tiny filling defects within subsegmental pulmonary arterial branches, notably within the right lower lobe as seen on image 96 of series 8. No central pulmonary emboli identified. CT CHEST: No thyroid nodule. There are several borderline enlarged mediastinal and right hilar lymph nodes measuring up to 10 mm which are similar to mildly increased in size from the prior study. Small pleural effusions. No pneumothorax. Intralobular septal thickening. M ultifocal and multilobar distribution of bilateral mixed groundglass and consolidative opacities with airspace consolidation most pronounced within the subpleural anterior segment of the right upper lobe. The central airways are patent. The liver appears enlarged. No acute process of the imaged upper abdomen. Gynecomastia. Bones appear intact. IMPRESSION: 1. Cardiomegaly with suggested pulmonary arterial hypertension. There is limited evaluation of the segmental and subsegmental pulmonary arterial branches secondary to respiratory motion artifact. Artifact versus equivocal tiny pulmonary embolus is noted within a subsegmental branch of the right lower lobe. Correlation with lower extremity Doppler recommended. 2. Interstitial pulmonary edema with small pleural effusions. 3. Additional bilateral groundglass and consolidative opacities are suspicious for superimposed pneumonia. 4. Mild mediastinal and hilar adenopathy is likely reactive. ACT 112: Negative or not required by law. The above report was generated using voice recognition software. It may contain grammatical, syntax or spelling errors. Electronically signed by: Sony Irby M.D. 06/16/2021 5:00 PM Chest X-Ray 06/16/21 13:36 XR chest 1V portable HISTORY: Atypical Chest Pain COMPARISON: Chest 05/21/2021. FINDINGS: No pneumothorax. There is left-sided single lead pacemaker. Cardiac megaly with progressive interstitial/vascular thickening consistent with mild pulmonary edema. Hazy appearance to lung bases may represent layering pleural effusions or airspace opacities. IMPRESSION: 1. Interval progression of the mild pulmonary edema. 2. Hazy appearance to the lung bases may represent layering pleural fluid or airspace opacities. ACT 112: Negative or not required by law. Electronically signed by: Andrea Bear M.D. 06/16/2021 1:55 PM ECG Data Interpretation: Sinus tachycardia with rate of 109. WI QRS and QTc intervals within normal limits. No ST elevation or ST depression. No significant change from the EKG done on May 21, 2021 MDM Narrative 1334: The patient was evaluated in room B3. A complete history and physical exam was performed Cardiac monitoring: An order was placed for continuous cardiac monitoring. The monitor shows a rate of 110 with sinus tachycardia rhythm 1430: Patient is fluid overloaded on chest x-ray. She has hypertensive. Sublingual nitroglycerin and Lasix ordered for the patient. 1530: Vital signs stable on supplemental oxygen via nasal cannula 5 L his home d ose. Patient refused to go to CAT scan as he states he does not want to lie down and feels nervous doing so. Ativan ordered for the patient explained to him with a chief complaint of hemoptysis is very important that we obtain a CT scan. Patient is agreement. 1620: Vital signs stable. Patient states he is feeling more short of breath. Requesting BiPAP. BiPAP ordered for the patient. Magnesium ordered for the patient to replete his hypomagnesemia 1750: After exam of the patient's room her procedure is being done nursing staff found me and for me that the patient was having runs of V. tach. The also informed the patient was increasingly lethargic. Accu-Chek within normal limits. ABG ordered for the patient. Telemetry strip was reviewed and the patient is having V. tach versus bigeminy. Amiodarone bolus and drip ordered for the patient. 1810: Spoke with Dr. Cary on-call [facility] cardiology. He states he does the patient and his has history of noncompliance. He agrees that the patient should be started on amiodarone bolus and drip. Discussed with Dr. Sanabria ICU who will come down to evaluate the patient. POC ABG within normal limits. 1850: Patient is more alert. ABG within normal limits. Refusing De Dios catheter. Standing up to urinate. Patient will be admitted to PCU no need for ICU after evaluation by Dr. Sanabria at bedside. Labs show white blood cell count of 11.75 hemoglobin 13.5. High-sensitivity troponin negative. BNP 592. Patient will be admitted to the [facility] hospitalist team. CT of the head within normal limits. CTA of the chest shows cardiomegaly with suggestive pulmonary arterial hypertension limited evaluation of segmental subsegmental pulmonary arterial branches secondary to motion artifact. Artifact versus tiny pulmonary embolus within subsegmental branch of the right lower lobe correlation with vascular ultrasounds were recommended. CTA also showed additional bilateral groundglass and consolidative opacities to superimposed pneumonia. Discussed case with Dr. Sky's [facility] hospitalist team. [facility] hospitalist and I both agree that we will hold antibiotics at this time as patient does not have any fevers, no leukocytosis, lactic acid within normal limits procalcitonin within normal limits. Hospitalist and I also agree also hold off on any anticoagulation as it is thought that the patient might have artifact more in the right lower lobe will correlate with ultrasound ordering by hospitalist for rule out DVT. Impression & Plan Acute on chronic congestive heart failure, Noncompliance, V tach Critical Care Time Critical Care Time: Yes Total Critical Care Time: 76 I have personally spent greater than 76 minutes of critical care time in the direct management of this patient. This includes bedside care, interpretation of diagnostic studies, and testing, discussion with consultants, patient, and family members, and other required patient management activities. This 76 minutes is in excess of all separately billable procedures. Discharge Plan Visit Data Chief Complaint: Cough ED Provider: Onofre Almaraz Discharge Problem: Acute on chronic congestive heart failure, Noncompliance, V tach Patient Disposition: Admitted As Inpatient Forms Stand Alone Forms: My [facility] Prescriptions Prescriptions: No Action budesonide-formoterol [Symbicort] 160-4.5 mcg/actuation HFA aerosol inhaler 2 inh inhalation BID Qty: 10.2 RF: 2 albuterol sulfate 90 mcg/actuation HFA aerosol inhaler 1 inh inhalation QID Qty: 8.5 RF: 2 dulaglutide 3 mg/0.5 mL pen injector 3 mg SUBCUT WK Qty: 2 RF: 5 alcohol swabs [Alcohol Pads] Pads, Medicated 4 pad topical DAILY 90 Days Qty: 400 RF: 0 spironolactone [Aldactone] 25 mg tablet 75 mg PO QAM Qty: 90 RF: 5 Entresto 97-103 mg tablet 1 tab PO BID Qty: 60 RF: 5 metoprolol succinate 100 mg tablet extended release 24 hr 100 mg PO BID Qty: 60 RF: 5 albuterol sulfate 2.5 mg /3 mL (0.083 %) solution for nebulization 2.5 mg inhalation Q6H Qty: 15 RF: 2 esomeprazole magnesium [Nexium] 20 mg capsule,delayed release(DR/EC) 40 mg PO BID Qty: 60 RF: 5 Humalog Mix 50-50 KwikPen 100 unit/mL (50-50) insulin pen 40 unit subcut BID 30 Days Qty: 24 RF: 5 nitroglycerin [Nitrostat] 0.4 mg tablet, sublingual 0.4 mg sublingual UD PRN (Reason: Chest Pain) RF: 0 cholecalciferol (vitamin D3) [Vitamin D3] 50 mcg (2,000 unit) Tablet 100 mcg PO BID RF: 0 torsemide 20 mg tablet 40 mg PO BID Qty: 60 RF: 5 isosorbide mononitrate 30 mg tablet extended release 24 hr See Rx Instructions .ROUTE .COMPLEX RF: 0 aspirin [Aspirin Low Dose] 81 mg tablet,delayed release (DR/EC) 81 mg PO QAM RF: 0 magnesium oxide 400 mg (241.3 mg magnesium) tablet 400 mg PO QAM RF: 0 famotidine 20 mg tablet 20 mg PO QAM RF: 0 Referrals Referrals: Richa Burr CRNP [Primary Care Provider] - Discharge Problem: Acute on chronic congestive heart failure Qualifiers: Heart failure type: unspecified Qualified Code(s): I50.9 - Heart failure, unspecified
[2021-06-16 14:07] LABS: Basophils # (auto) 0.02 K/uL (0-0.2); Basophils % (auto) 0.2 %; Eosinophils % (auto) 0.9 %; Hematocrit (blood only) 41.9 % (42-52); Hemoglobin 13.5 g/dL (14.0-18.0); Immature Granulocytes # (auto) 0.06 K/uL (0.00-0.02); Immature Granulocytes % (auto) 0.5 %; Lymphocytes # (auto) 2.04 K/uL (1.2-3.4); Lymphocytes % (auto) 17.4 %; Mean Corpuscular Hemoglobin 27.2 pg (25-34); Mean Corpuscular Hgb Conc 32.2 g/dL (32-36); Mean Corpuscular Volume 84.5 fL (80-100); Mean Platelet Volume 9.7 fL (7.4-10.4); Monocytes % (auto) 5.1 %; Neutrophils # (auto) 8.93 K/uL (1.4-6.5); Neutrophils % (auto) 75.9 %; Platelet Count 224 K/uL (130-400); RDW Coefficient of Variation 15.3 % (11.5-14.5); RDW Standard Deviation 46.9 fL (36.4-46.3); Red Blood Count 4.96 M/uL (4.7-6.1); White Blood Count 11.75 K/uL (4.8-10.8)
[2021-06-16 14:13] LABS: Base Excess VBG 2.4 mEq/L; Oxygen Saturation VBG 77.8 %; pH VBG 7.38 (7.36-7.41)
[2021-06-16 14:23] LABS: Partial Thromboplastin Ratio 0.9; Partial Thromboplastin Time 25.3 Seconds (21.0-31.0); Prothrombin Time 10.8 Seconds (9.0-12.0)
[2021-06-16 14:26] LABS: BUN Creatinine Ratio 13.7 (10-20); Calcium 8.6 mg/dl (8.5-10.1); Est GFR (African American) 130.7 ml/min; Est GFR (Non-African American) 112.8 ml/min; Magnesium 1.5 mg/dl (1.7-2.4); Potassium 4.2 mmol/L (3.5-5.1)
[2021-06-16] MEDS ORDERED: NITROGLYCERIN SL 0.4 MG/TAB TAB SL STA (14:34)
[2021-06-16] MEDS ORDERED: FUROSEMIDE 40 MG/4 ML VIAL IV ONE ×2 (14:34→18:29)
--- NOTE | 2021-06-16 14:48 | Electrocardiogram Report ---
Test Reason : Blood Pressure : / mmHG Vent. Rate : 109 BPM Atrial Rate : 109 BPM P-R Int : 160 ms QRS Dur : 106 ms QT Int : 358 ms P-R-T Axes : 024 -32 085 degrees QTc Int : 482 ms Sinus tachycardia Possible Left atrial enlargement Left axis deviation Incomplete left bundle block Abnormal ECG When compared with ECG of 21-MAY-2021 14:04, No significant change was found Confirmed by Harry Bush ([id number]) on 06/16/2021 2:47:38 PM Referred By: REFERRED SELF Confirmed By:Harry Bush
[2021-06-16 14:50] LABS: Influenza A virus by PCR Negative (Neg); Influenza B virus by PCR Negative (Neg); RSV by PCR Negative (Neg); SARS CoV2 RNA(COVID-19) InHosp NEGATIVE (Negative)
[2021-06-16] MEDS ORDERED: OPTIRAY 320 125ml IV ONE (15:23)
[2021-06-16] MEDS ORDERED: LORazepam 2 MG/1 ML VIAL IV STA (15:31)
--- NOTE | 2021-06-16 16:50 | CT Scan Report ---
CT SCAN OF THE BRAIN WITHOUT IV CONTRAST CLINICAL HISTORY: Seizure. COMPARISON STUDY: CT of the brain dated 07/04/2020. TECHNIQUE: Unenhanced axial CT scan of the brain is performed from the vertex to the skull base. A d ose lowering technique was utilized adhering to the principles of ALARA. The vertex was scanned twice due to motion artifact. CT DOSE: 2787.41 mGy.cm FINDINGS: Brain parenchyma: There is mild microangiopathic change. There is no hemorrhage, mass effect, or evid ence of acute territorial ischemia by CT criteria. Adams-white matter differentiation is preserved. No extra-axial fluid collection is seen. Ventricles, sulci, cisterns: Normal in configuration. Intracranial vasculature: There is atherosclerotic calcification of the vertebral arteries. Calvarium: Unremarkable. Sinuses and mastoids: The visualized paranasal sinuses are clear. There is trace left mastoid effusio n. The right mastoid air cells are well pneumatized. Orbits: The bony orbits are grossly intact. IMPRESSION: No acute intracranial abnormality. ACT 112: Negative or not required by law. Electronically signed by: Abhilash Carpio M.D. 06/16/2021 4:48 PM
[2021-06-16] MEDS: MAGNESIUM SULFATE / D5W 1 GM/100 ML BAG IV SCH ×3 (17:00→22:16)
--- NOTE | 2021-06-16 17:02 | CT Scan Report ---
CT angio chest PE protocol HISTORY: 45 years-old Male with Chest Pain, eval for PE. Acute chest pain with shortness of breath TECHNIQUE: Multiple CTA images of the chest were obtained after the intravenous administration of 120 ml Optiray. Coronal and sagittal MIPS were obtained from the axial data set and were submitted for review. All measurements were obtained according to NASCET criteria. A dose lowering technique was u tilized adhering to the principles of ALARA. COMPARISON: CTA chest 03/12/2021 FINDINGS: CTA: There is adequate opacification of the pulmonary arteries to the level of the subsegmental branches w ithout convincing evidence of acute pulmonary embolism. thoracic aorta moderate cardiomegaly with lef t subclavian pacer. No pericardial effusion. Unchanged dilation of the ascending thoracic aorta at th e level of the main pulmonary artery measuring up to 4.4 x 4.4 cm. There is no dissection identified. Dilation of the main pulmonary artery measures up to 4.2 cm. Respiratory motion artifact limits the study. There are questioned tiny filling defects within subsegmental pulmonary arterial branches, not ably within the right lower lobe as seen on image 96 of series 8. No central pulmonary emboli identif ied. CT CHEST: No thyroid nodule. There are several borderline enlarged mediastinal and right hilar lymph nodes jese uring up to 10 mm which are similar to mildly increased in size from the prior study. Small pleural effusions. No pneumothorax. Intralobular septal thickening. Multifocal and multilobar d istribution of bilateral mixed groundglass and consolidative opacities with airspace consolidation mo st pronounced within the subpleural anterior segment of the right upper lobe. The central airways are patent. The liver appears enlarged. No acute process of the imaged upper abdomen. Gynecomastia. Bones appear intact. IMPRESSION: 1. Cardiomegaly with suggested pulmonary arterial hypertension. There is limited evaluation of the se gmental and subsegmental pulmonary arterial branches secondary to respiratory motion artifact. Artifa ct versus equivocal tiny pulmonary embolus is noted within a subsegmental branch of the right lower l obe. Correlation with lower extremity Doppler recommended. 2. Interstitial pulmonary edema with small pleural effusions. 3. Additional bilateral groundglass and consolidative opacities are suspicious for superimposed pneum onia. 4. Mild mediastinal and hilar adenopathy is likely reactive. ACT 112: Negative or not required by law. The above report was generated using voice recognition software. It may contain grammatical, syntax o r spelling errors. Electronically signed by: Sony Irby M.D. 06/16/2021 5:00 PM
[2021-06-16] MEDS ORDERED: STAT IV Infusion **Titration per Protocol STA (17:51)
[2021-06-16] MEDS ORDERED: AMIODARONE IV BOLUS & DRIP IV STA (17:51)
[2021-06-16] MEDS ORDERED: 0.2 MICRON FILTER SET 1 EA IV ONE (17:51)
[2021-06-16] MEDS ORDERED: AMIODARONE / D5W 150 MG/100 ML BAG IV STA (17:51)
[2021-06-16] MEDS ORDERED: AMIODARONE / D5W 360 MG/200 ML BAG IV ONE (18:02)
[2021-06-16 18:20] LABS: iSTAT Arterial Blood Gas HCO3 29 meg/L (19-24); iSTAT Arterial Blood Gas pCO2 46 mmHg (35-46); iSTAT Arterial Blood Gas pH 7.41 (7.35-7.45); iSTAT Arterial Blood Gas pO2 104 mmHg (80-95); iSTAT Carbon Dioxide 30 mmol/L (24-31); iSTAT Hematocrit 40 % (42-52); iSTAT Hemoglobin 13.6 g/dl (14.0-18.0); iSTAT Potassium 3.9 mmol/L (3.3-5.0); iSTAT Sodium 136 mmol/L (135-144)
--- NOTE | 2021-06-16 19:12 | History & Physical Report ---
Date of Service June 16, 2021 Assessment & Plan (1) Acute on chronic congestive heart failure: (2) Acute on chronic heart failure with reduced ejection fraction and diastolic dysfunction: (3) Hypertension: (4) Acute and chronic respiratory failure with hypoxia: (5) AICD (automatic cardioverter/defibrillator) present: (6) V tach: (7) Chest pain: (8) Hemoptysis: (9) Obstructive sleep apnea: (10) COPD (chronic obstructive pulmonary disease): Plan: Alok is a 45 year old male w/ PmHx of HFrEF w/ EF 15-20%, T2DM, HTN, morbid obesity, intellectual disability, COPD, chronic respiratory failure, MARIELENA, non- ischemic cardiomyopathy s/p ICD admitted for acute respiratory failure and CHF exacerbation. Acute CHF exacerbation/HFrEF/Acute respiratory failure: -CXR w/ diffuse interstitial thickening w/ hazy appearance at lung base indicating pulmonary edema. -CTA chest: cardiomegaly w/ PAH, Artifact vs tiny pulmonary embolus in subsegmental RLL. Interstitial pulmonary edema w/ small pleural effusion. B/l ground glass opacities and consolidative opacities. -Bed weight 165kg today, up from 158kg from last discharge. BNP 592. Trop negative. -Most likely respiratory distress secondary to acute heart failure/fluid overload. -Currently on BiPaP, IPAP 16, EPAP 10, FiO2 30. -Given 40mg IV Lasix x2 in ED. -40mg IV scheduled BID. -NPO. Monitor I&O's. -AM BMP. Vtach Run/AICD present: -Hx of cardiomyopathy s/p AICD placement. -Last checked 05/04/21 by [facility] with normal function. -Started on Amiodarone IV in ED. -Can d/c after 24 hours w/ since AICD working well. Hypomagnesemia: -Mg 1.5 on admission. -Received 1gm MgSulfate IV in ED. -Ordered 3gm replenishment upon transfer. -AM Mg. T2DM: -Holding home dulaglutide and Humalog. -Last A1c in February 23.. May be due to non-compliance. -While NPO giving 50% of basal (20Units BID). -SSI. -BSG ACHS. HTN: -Continue home Entresto. -Monitor vitals. COPD: -Less likely COPD exacerbation. -Continue home regimen. MARIELENA: -Currently on BiPaP, once transitioned off of BiPaP can give CPAP at night. DVT Prophylaxis: Lovenox 40mg BID F/E/N/GI: NPO on BiPaP Code status: Full code, patient would like everything done in the event his heart stopped beating including defibrillation, CPR, intubation. Dispo: PCU History of Present Illness Chief Complaint: Shortness of breath Primary Care Provider: CM Hitchcock Alok is a 45 year old male w/ PmHx of HFrEF w/ EF 15-20%, T2DM, HTN, morbid obesity, intellectual disability, COPD, chronic respiratory failure, MARIELENA, non- ischemic cardiomyopathy s/p ICD coming in for 2 days of shortness of breath. Patient is difficult to elicit history from as he is on BiPaP. He said he was experiencing shrotness of breath for 2 days prior to coming into the hospital and had increased purplish coloration of his lips. He has also had more swelling in the lower extremities. Patient endorsed taking his home blood pressure and heart failure medications on time today. He also endorses chest pain at the sternum. He has had sputum production as well as hemoptysis. Allergies Allergy/AdvReac Type Severity Reaction Status Date / Time ceftriaxone Allergy Severe SHORTNESS Verified 06/16/21 15:02 OF BREATH lidocaine Allergy Severe SHORTNESS Verified 06/16/21 15:02 OF BREATH, diaphoretic, hives procaine Allergy Severe SHORTNESS Verified 06/16/21 15:02 OF BREATH, diaphoretic, hives amoxicillin Allergy Intermediate HIVES/FACIAL Verified 06/16/21 15:02 SWELLING clavulanic acid Allergy Intermediate HIVES/FACIAL Verified 06/16/21 15:02 SWELLING lisinopril Allergy Intermediate HIVES Verified 06/16/21 15:02 shellfish derived Allergy Verified 06/16/21 15:02 acetaminophen AdvReac Mild NAUSEA Verified 06/16/21 15:02 albuterol AdvReac Mild proair Verified 06/16/21 15:02 "trouble taking breaths" Fish Containing Products AdvReac Unknown Unknown Verified 06/16/21 15:02 Home Medications Medication Instructions Recorded Confirmed Type nitroglycerin 0.4 mg sublingual 0.4 mg SUBLINGUAL UD PRN 04/24/19 06/16/21 History tablet (Nitrostat) cholecalciferol (vitamin D3) 50 100 mcg PO BID 10/04/19 06/16/21 History mcg (2,000 unit) tablet (Vitamin D3) albuterol sulfate 90 mcg/actuation 1 inh INHALATION QID #8.5 g 12/09/20 06/16/21 Rx aerosol inhaler albuterol sulfate 2.5 mg INHALATION Q6H #15 ml 02/21/21 06/16/21 Rx metoprolol succinate 100 mg 100 mg PO BID #60 tab 02/21/21 06/16/21 Rx tablet,extended release 24 hr sacubitril 97 mg-valsartan 103 mg 1 tab PO BID #60 tab 02/21/21 06/16/21 Rx tablet (Entresto) spironolactone 25 mg tablet 75 mg PO QAM #90 tab 02/21/21 06/16/21 Rx (Aldactone) torsemide 20 mg tablet 40 mg PO BID #60 tab 02/26/21 06/16/21 Rx alcohol swabs (Alcohol Pads) 4 pad TOPICAL DAILY 90 Days #400 ea 03/22/21 06/15/21 Rx dulaglutide 3 mg/0.5 mL 3 mg SUBCUT WK #2 ml 03/22/21 06/16/21 Rx subcutaneous pen injector insulin lispro protamine-lispro 40 unit SUBCUT BID 30 Days #24 ml 03/22/21 06/16/21 Rx 100 unit/mL (50-50) subcutaneous pen (Humalog Mix 50-50 KwikPen) isosorbide mononitrate 30 mg See Rx Instructions .ROUTE 03/22/21 06/16/21 History tablet,extended release 24 hr .COMPLEX tab Symbicort 160 mcg-4.5 2 inh INHALATION BID #10.2 g NS 05/04/21 06/16/21 Rx mcg/actuation HFA aerosol inhaler (budesonide-formoterol) esomeprazole magnesium 20 mg 40 mg PO BID #60 cap 06/15/21 06/16/21 Rx capsule,delayed release (Nexium) aspirin 81 mg tablet,delayed 81 mg PO QAM 06/16/21 06/16/21 History release (Aspirin Low Dose) famotidine 20 mg tablet 20 mg PO QAM 06/16/21 06/16/21 History magnesium oxide 400 mg (241.3 mg 400 mg PO QAM 06/16/21 06/16/21 History magnesium) tablet Past Med/Surg History Medical History Bacteremia Chronic respiratory failure Dilatation of thoracic aorta Fatty liver Hearing loss of both ears Housing instability, currently housed, at risk for homelessness Hx of local infection of skin and subcutaneous tissue Iliac aneurysm Lung nodule NICM (nonischemic cardiomyopathy) Pt admitted for elective ICD. Underwent procedure without any complications monitored over night and discharged home. 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 Heart disease Myocardial infarction Mother , age 67 of a ruptured neck vessel Sudden Other Depression Lung disease No pertinent family history Denies family history of Ovarian cancer Prostate cancer Breast cancer Colorectal cancer Social History Smoking Status: Current every day smoker Tobacco Type: Cigarettes Age Started Using Tobacco: 14; Age Quit Using Tobacco: 18; Cigarettes Per Day: 40; Second Hand Exposure: No; Do You Dip or Chew Tobacco: No; Tobacco Cessation Education Requested by Patient: No Hx Alcohol Use: No Hx Substance Use: No Preferred Language: Syriac Communication Ability: Effective Visual Impairment: No Limitations Hearing Ability: Normal 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 Beliefs That Will Affect Care: None marital status: Current Living Situation: Spouse current occupational status: unemployed How many Children do You have: 0 Other Information That Helps Us Care for You: No Feels Safe at Home: Yes Safety Concerns: Feels Safe At This Time Childhood Exposure to Second-Hand Smoke: Yes Dental Care, Regularly: Yes Physical Activity Frequency: Does not Exercise Assistive Devices: Oxygen - Continuous Assistive Devices Comment: 5L at home Review of Systems Constitutional: as per Subjective / HPI Physical Exam Constitutional: + morbidly obese and cooperative Patient lying in bed with BiPaP on and able to answer yes or no for the most part when provider increases volume of voice. Respiratory: BiPaP in place. Expiratory rhonchi bilaterally. Cardiovascular: Rate/Rhythm: + tachycardic Heart Sounds: normal S1 and normal S2 Gastrointestinal (Abdomen): BS+, soft, obese appearing abdomen, no guarding. Results & Data Results & Data ([facility]) Vital Signs (Past 12 Hours) Vital Signs Temp Pulse Pulse Resp BP BP Pulse Ox 06/16/21 18:00 113 H 23 169/124 H 97 06/16/21 17:41 86 20 153/108 H 98 06/16/21 17:30 93 H 26 H 97 06/16/21 17:01 103 H 22 159/119 H 98 06/16/21 17:00 108 H 22 06/16/21 16:50 99 06/16/21 16:26 128 H 33 H 98 06/16/21 16:00 88 30 H 06/16/21 15:36 102 H 24 176/116 H 94 06/16/21 15:30 102 H 27 H 94 06/16/21 15:00 87 77 28 H 142/107 H 94 06/16/21 14:30 98 H 97 H 12 184/123 H 95 06/16/21 14:18 97 H 24 176/115 H 95 06/16/21 14:00 107 H 24 98 06/16/21 13:56 97 06/16/21 13:55 118 H 26 H 96 06/16/21 13:30 96 H 21 98 06/16/21 13:16 112 H 34 H 97 06/16/21 13:13 36.8 C 110 H 26 H 174/121 H 97 Code Status & VTE Plan VTE Prophylaxis Plan VTE Prophylaxis will be ordered: Yes Supervising Physician Co-Signing Physician Notes Patient seen and examined at bedside. During face to face encounter, obtained history and physical examination. I reviewed above document and agree with it. Discussed plan of care with patient and Dr. Centeno. Patient will be placed on BIPAP, continue to aggressively diurese. Monitor urine output. D/W data warehousing architecttrace for PCU for now. Resident Activity Tracking Resident Involvement: Resident Care Provided Care Provided: Adult Hospital Medicine (1) Acute on chronic congestive heart failure Heart failure type: unspecified Qualified Code(s): I50.9 - Heart failure, unspecified (2) COPD (chronic obstructive pulmonary disease) COPD type: unspecified COPD Qualified Code(s): J44.9 - Chronic obstructive pulmonary disease, unspecified (3) Hypertension Hypertension type: unspecified Qualified Code(s): I10 - Essential (primary) hypertension
[2021-06-16] MEDS ORDERED: GLUCAGON FOR INJ 1 MG VIAL SQ PRN (21:21)
[2021-06-16] MEDS ORDERED: DC ALL PREVIOUSLY ORDERED DIABETES MEDS ONE (21:21)
[2021-06-16] MEDS ORDERED: INSULIN ASPART PER UNIT SC SCH (21:21)
[2021-06-16] MEDS: METOPROLOL SUCC 50MG EXT REL TAB PO SCH (22:10)
[2021-06-16] MEDS: PANTOprazole 40 MG TAB PO SCH (22:11)
[2021-06-16] MEDS: INSULIN GLARGINE SOLOSTAR 100 UNITS/ML 3 ML PEN SC SCH (22:11)
[2021-06-16] MEDS: VALSARTAN/SACUBITRIL 103/97MG TAB PO SCH (22:11)
[2021-06-16] MEDS: ENOXAPARIN INJ 40 MG/0.4 ML SYR SQ SCH (22:12)
[2021-06-17] MEDS: MAGNESIUM SULFATE / D5W 1 GM/100 ML BAG IV SCH ×2 (00:17→02:23)
[2021-06-17] MEDS: AMIODARONE / D5W 360 MG/200 ML BAG IV SCH ×2 (00:31→08:05)
[2021-06-17] MEDS ORDERED: Nursing to Pharmacy Communication SCH ×2 (03:30→11:15)
[2021-06-17] MEDS: FUROSEMIDE 40 MG/4 ML VIAL IV SCH ×3 (04:41→20:59)
[2021-06-17] MEDS ORDERED: FUROSEMIDE 40 MG/4 ML VIAL IV SCH (05:00)
[2021-06-17] MEDS ORDERED: INSULIN ASPART PER UNIT SC SCH (06:00)
[2021-06-17 07:46] LABS: Hematocrit (blood only) 42.1 % (42-52); Hemoglobin 13.6 g/dL (14.0-18.0); Mean Corpuscular Hemoglobin 26.9 pg (25-34); Mean Corpuscular Hgb Conc 32.3 g/dL (32-36); Mean Corpuscular Volume 83.4 fL (80-100); Mean Platelet Volume 9.5 fL (7.4-10.4); Platelet Count 215 K/uL (130-400); RDW Coefficient of Variation 15.5 % (11.5-14.5); RDW Standard Deviation 46.5 fL (36.4-46.3); Red Blood Count 5.05 M/uL (4.7-6.1); White Blood Count 8.19 K/uL (4.8-10.8)
[2021-06-17] MEDS: VALSARTAN/SACUBITRIL 103/97MG TAB PO SCH ×2 (08:06→21:01)
[2021-06-17] MEDS: METOPROLOL SUCC 50MG EXT REL TAB PO SCH ×2 (08:06→21:01)
[2021-06-17] MEDS: MAGNESIUM OXIDE 400 MG TAB PO SCH (08:06)
[2021-06-17] MEDS: SPIRONOLACTONE 25 MG TAB PO SCH (08:06)
[2021-06-17] MEDS: ASPIRIN 81 MG ECTAB PO SCH (08:06)
[2021-06-17] MEDS: PANTOprazole 40 MG TAB PO SCH ×2 (08:06→21:02)
[2021-06-17] MEDS: FLUTICASONE/VILANTEROL 200/25MCG 14 PUFFS/INHALER INH SCH (08:07)
[2021-06-17] MEDS: INSULIN GLARGINE SOLOSTAR 100 UNITS/ML 3 ML PEN SC SCH ×2 (08:07→21:14)
[2021-06-17 08:15] LABS: Basophils # (auto) 0.02 K/uL (0-0.2); Basophils % (auto) 0.2 %; Eosinophils # (auto) 0.11 K/uL (0-0.5); Eosinophils % (auto) 1.3 %; Immature Granulocytes # (auto) 0.04 K/uL (0.00-0.02); Immature Granulocytes % (auto) 0.5 %; Lymphocytes # (auto) 1.88 K/uL (1.2-3.4); Monocytes # (auto) 0.45 K/uL (0.11-0.59); Monocytes % (auto) 5.5 %; Neutrophils # (auto) 5.69 K/uL (1.4-6.5); Neutrophils % (auto) 69.5 %
[2021-06-17 08:16] LABS: BUN Creatinine Ratio 10.9 (10-20); Calcium 8.6 mg/dl (8.5-10.1); Creatinine Clr Calc Pharmacy 154.9 ml/min; Est GFR (African American) 116.8 ml/min; Est GFR (Non-African American) 100.8 ml/min; Magnesium 2.1 mg/dl (1.7-2.4); Potassium 4.1 mmol/L (3.5-5.1)
[2021-06-17] MEDS: ENOXAPARIN INJ 40 MG/0.4 ML SYR SQ SCH ×2 (09:06→21:02)
--- NOTE | 2021-06-17 09:21 | Hospitalist Progress Note ---
Date of Service June 17, 2021 Assessment & Plan (1) Acute on chronic congestive heart failure: Plan: Alok is a 45 year old male w/ PmHx of HFrEF w/ EF 15-20%, T2DM, HTN, morbid obesity, intellectual disability, COPD, chronic respiratory failure, MARIELENA, non- ischemic cardiomyopathy s/p ICD admitted for acute respiratory failure and CHF exacerbation. Acute CHF exacerbation/HFrEF/Acute respiratory failure: -CXR w/ diffuse interstitial thickening w/ hazy appearance at lung base indicating pulmonary edema. -CTA chest: cardiomegaly w/ PAH, Artifact vs tiny pulmonary embolus in subsegmental RLL. Interstitial pulmonary edema w/ small pleural effusion. B/l ground glass opacities and consolidative opacities. -Bed weight 165kg on admission, up from 158kg from last discharge. -BNP 592. -Trop negative. -Most likely respiratory distress secondary to acute heart failure/fluid overload. -Currently on BiPaP, IPAP 16, EPAP 10, FiO2 30. -Given 40mg IV Lasix x2 in ED. -Continue 40mg IV BID; given his home regimen of torsemide 40mg BID this could be further escalated if diuresis stalls -Continue to trend daily BMPs Vtach Run/AICD present: -Hx of cardiomyopathy s/p AICD placement. -Last checked 05/04/21 by [facility] with normal function. -discontinued Amiodarone drip -continue Metoprolol 100mg BID T2DM: -Holding home dulaglutide and Humalog. -Last A1c in February 23.5. May be due to non-compliance. -diabetic diet -SSI -BSG ACHS. HTN: -Continue home Entresto. -Monitor vitals COPD: -Less likely COPD exacerbation. -Continue home regimen. MARIELENA: -CPAP at night. DVT Prophylaxis: Lovenox 40mg BID F/E/N/GI: Diabetic, heart healthy, low sodium diet Code status: Full code (2) Acute on chronic heart failure with reduced ejection fraction and diastolic dysfunction: (3) Hypertension: (4) Acute and chronic respiratory failure with hypoxia: (5) AICD (automatic cardioverter/defibrillator) present: (6) V tach: (7) Chest pain: (8) Hemoptysis: (9) Obstructive sleep apnea: (10) COPD (chronic obstructive pulmonary disease): Admission and Anticipated Discharge Date Admission Date: June 16, 2021 Supervising Physician Co-Signing Physician Notes Resident Physician Supervision Note: I independently interviewed and examined the patient and verified the caraballo history and physical, reviewed labs and image studies and agree with resident Dr. Willson findings and care plan. Subjective Frustrated with the BiPAP and his continued return to the hospital over the last several years. Has sputum production that he notes is there every time he is in the hospital and never seems to go away. Tolerated the nasal cannula this morning Review of Systems Review of Systems: All systems reviewed & are unremarkable except as noted in Subjective Physical Exam Constitutional: + morbidly obese, + disheveled and + diaphoretic; no acute distress Eyes: PERRL, conjunctivae normal, anicteric sclerae Respiratory: + labored breathing, + cough and able to speak in complete sentences; no respiratory distress and does not use accessory muscles Auscultation: + diminished lung sounds Cardiovascular: Rate/Rhythm: regular rate and regular rhythm Heart Sounds: no gallop, no murmur and no cardiac rub Extremities: + pedal edema; no calf tenderness Gastrointestinal (Abdomen): Inspection/Auscultation: normal bowel sounds; abdomen not distended Percussion/Palpation: abdomen soft; abdomen nontender and no guarding Neurologic: PERRL, EOMI, accommodation nl, no face palsy, no dysarthria CN's II-XI intact bilaterally and moves all extremities Psychiatric: Orientation: alert and oriented x 3 Results & Data Results & Data ([facility]) Vital Signs (Past 12 Hours) Vital Signs Temp Pulse Pulse Resp BP Pulse Ox 06/17/21 07:10 36.5 C 68 19 120/86 91 06/17/21 07:08 82 21 92 06/17/21 04:30 130/78 06/17/21 03:11 63 21 94 06/17/21 03:01 36.5 C 70 20 138/94 97 06/17/21 00:40 92 H 06/16/21 22:35 26 H 97 06/16/21 21:23 36.5 C 78 20 162/118 H 97 Laboratory Results 06/17/21 06/17/21 06/17/21 Range/Units 16:11 11:16 07:14 WBC (4.8-10.8) K/uL RBC (4.7-6.1) M/uL Hgb (14.0-18.0) g/dL POC Hgb (14.0-18.0) g/dl Hct (42-52) % POC Hct (42-52) % MCV (80-100) fL MCH (25-34) pg MCHC (32-36) g/dL RDW Std Deviation (36.4-46.3) fL RDW Coeff of Zoltan (11.5-14.5) % Plt Count (130-400) K/uL MPV (7.4-10.4) fL Immature Gran % (Auto) % Neut % (Auto) % Lymph % (Auto) % Wheeler % (Auto) % Eos % (Auto) % Baso % (Auto) % Neut # (Auto) (1.4-6.5) K/uL Lymph # (Auto) (1.2-3.4) K/uL Wheeler # (Auto) (0.11-0.59) K/uL Eos # (Auto) (0-0.5) K/uL Baso # (Auto) (0-0.2) K/uL Immature Gran # (Auto) (0.00-0.02) K/uL POC pH (7.35-7.45) POC pCO2 (35-46) mmHg POC pO2 (80-95) mmHg POC HCO3 (19-24) halie/L POC Total CO2 (24-31) mmol/L POC Base Excess (-9-1.8) halie/L POC ABG O2 Sat (90-95) % POC Sodium (135-144) mmol/L Sodium 137 (136-145) mmol/L POC Potassium (3.3-5.0) mmol/L Potassium 4.1 (3.5-5.1) mmol/L Chloride 99 (98-107) mmol/L Carbon Dioxide 33 H (21-32) mmol/L Anion Gap 5 (3-11) BUN 10 (6-23) mg/dl Creatinine 0.92 (0.6-1.4) mg/dl Est Cr Clr Drug Dosing 154.9 ml/min Est GFR ( Amer) 116.8 ml/min Est GFR (Non-Af Amer) 100.8 ml/min BUN/Creatinine Ratio 10.9 (10-20) Glucose 184 H (70-99(Fasting)) mg/dl POC Glucose 125 H 172 H (70-99) mg/dl Calcium 8.6 (8.5-10.1) mg/dl Magnesium 2.1 (1.7-2.4) mg/dl 06/17/21 06/17/21 06/16/21 Range/Units 07:14 05:23 21:12 WBC 8.19 (4.8-10.8) K/uL RBC 5.05 (4.7-6.1) M/uL Hgb 13.6 L (14.0-18.0) g/dL POC Hgb (14.0-18.0) g/dl Hct 42.1 (42-52) % POC Hct (42-52) % MCV 83.4 (80-100) fL MCH 26.9 (25-34) pg MCHC 32.3 (32-36) g/dL RDW Std Deviation 46.5 H (36.4-46.3) fL RDW Coeff of Zoltan 15.5 H (11.5-14.5) % Plt Count 215 (130-400) K/uL MPV 9.5 (7.4-10.4) fL Immature Gran % (Auto) 0.5 % Neut % (Auto) 69.5 % Lymph % (Auto) 23.0 % Wheeler % (Auto) 5.5 % Eos % (Auto) 1.3 % Baso % (Auto) 0.2 % Neut # (Auto) 5.69 (1.4-6.5) K/uL Lymph # (Auto) 1.88 (1.2-3.4) K/uL Wheeler # (Auto) 0.45 (0.11-0.59) K/uL Eos # (Auto) 0.11 (0-0.5) K/uL Baso # (Auto) 0.02 (0-0.2) K/uL Immature Gran # (Auto) 0.04 H (0.00-0.02) K/uL POC pH (7.35-7.45) POC pCO2 (35-46) mmHg POC pO2 (80-95) mmHg POC HCO3 (19-24) halie/L POC Total CO2 (24-31) mmol/L POC Base Excess (-9-1.8) halie/L POC ABG O2 Sat (90-95) % POC Sodium (135-144) mmol/L Sodium (136-145) mmol/L POC Potassium (3.3-5.0) mmol/L Potassium (3.5-5.1) mmol/L Chloride (98-107) mmol/L Carbon Dioxide (21-32) mmol/L Anion Gap (3-11) BUN (6-23) mg/dl Creatinine (0.6-1.4) mg/dl Est Cr Clr Drug Dosing ml/min Est GFR ( Amer) ml/min Est GFR (Non-Af Amer) ml/min BUN/Creatinine Ratio (10-20) Glucose (70-99(Fasting)) mg/dl POC Glucose 187 H 180 H (70-99) mg/dl Calcium (8.5-10.1) mg/dl Magnesium (1.7-2.4) mg/dl 06/16/21 06/16/21 Range/Units 18:07 17:57 WBC (4.8-10.8) K/uL RBC (4.7-6.1) M/uL Hgb (14.0-18.0) g/dL POC Hgb 13.6 L (14.0-18.0) g/dl Hct (42-52) % POC Hct 40 L (42-52) % MCV (80-100) fL MCH (25-34) pg MCHC (32-36) g/dL RDW Std Deviation (36.4-46.3) fL RDW Coeff of Zoltan (11.5-14.5) % Plt Count (130-400) K/uL MPV (7.4-10.4) fL Immature Gran % (Auto) % Neut % (Auto) % Lymph % (Auto) % Wheeler % (Auto) % Eos % (Auto) % Baso % (Auto) % Neut # (Auto) (1.4-6.5) K/uL Lymph # (Auto) (1.2-3.4) K/uL Wheeler # (Auto) (0.11-0.59) K/uL Eos # (Auto) (0-0.5) K/uL Baso # (Auto) (0-0.2) K/uL Immature Gran # (Auto) (0.00-0.02) K/uL POC pH 7.41 (7.35-7.45) POC pCO2 46 (35-46) mmHg POC pO2 104 H (80-95) mmHg POC HCO3 29 H (19-24) halie/L POC Total CO2 30 (24-31) mmol/L POC Base Excess 4.0 H (-9-1.8) halie/L POC ABG O2 Sat 98.0 H (90-95) % POC Sodium 136 (135-144) mmol/L Sodium (136-145) mmol/L POC Potassium 3.9 (3.3-5.0) mmol/L Potassium (3.5-5.1) mmol/L Chloride (98-107) mmol/L Carbon Dioxide (21-32) mmol/L Anion Gap (3-11) BUN (6-23) mg/dl Creatinine (0.6-1.4) mg/dl Est Cr Clr Drug Dosing ml/min Est GFR ( Amer) ml/min Est GFR (Non-Af Amer) ml/min BUN/Creatinine Ratio (10-20) Glucose (70-99(Fasting)) mg/dl POC Glucose 158 H (70-99) mg/dl Calcium (8.5-10.1) mg/dl Magnesium (1.7-2.4) mg/dl Medications Administered Current Inpatient Medications Aspirin (Aspirin 81 Mg Ectab) 81 mg PO QAM SUKHWINDER Stop: 07/17/21 08:59 Last Admin: 06/17/21 08:06 Dose: 81 mg Documented by: Enoxaparin Sodium (Enoxaparin Inj 40 Mg/0.4 Ml Syr) 40 mg SQ Q12H SUKHWINDER Stop: 07/16/21 21:59 Last Admin: 06/17/21 09:06 Dose: Not Given Documented by: Fluticasone/Vilanterol (Fluticasone/Vilanterol 200/25mcg 14 Puffs/Inhaler) 1 puffs INH DAILY SUKHWINDER Stop: 07/17/21 08:59 Last Admin: 06/17/21 08:07 Dose: 1 puffs Documented by: Furosemide (Furosemide 40 Mg/4 Ml Vial) 40 mg IV Q8H SUKHWINDER Stop: 07/17/21 04:59 Last Admin: 06/17/21 12:26 Dose: 40 mg Documented by: Glucagon (Glucagon For Inj 1 Mg Vial) 1 mg SQ UD PRN; Protocol PRN Reason: Hypoglycemia Protocol Stop: 07/16/21 21:20 Insulin Aspart (Insulin Aspart Per Unit) 0 units SC ACHS [facility] Stop: 07/17/21 11:29 Last Admin: 06/17/21 16:50 Dose: 16 units Documented by: Insulin Glargine (Insulin Glargine Solostar 100 Units/Ml 3 Ml Pen) 20 units SC BID [facility] Stop: 07/16/21 21:20 Last Admin: 06/17/21 08:07 Dose: 20 units Documented by: Magnesium Oxide (Magnesium Oxide 400 Mg Tab) 400 mg PO QAM [facility] Stop: 07/17/21 08:59 Last Admin: 06/17/21 08:06 Dose: 400 mg Documented by: Metoprolol Succinate (Metoprolol Succ 50mg Ext Rel Tab) 100 mg PO BID [facility] Stop: 07/16/21 21:20 Last Admin: 06/17/21 08:06 Dose: 100 mg Documented by: Pantoprazole Sodium (Pantoprazole 40 Mg Tab) 40 mg PO BID [facility] [place] Stop: 07/16/21 21:20 Last Admin: 06/17/21 08:06 Dose: 40 mg Documented by: Sacubitril/Valsartan (Valsartan/Sacubitril 103/97mg Tab) 1 tab PO BID [facility] [place] Stop: 07/16/21 21:20 Last Admin: 06/17/21 08:06 Dose: 1 tab Documented by: Spironolactone (Spironolactone 25 Mg Tab) 75 mg PO QAM [facility] [place] Stop: 07/17/21 08:59 Last Admin: 06/17/21 08:06 Dose: 75 mg Documented by: Resident Activity Tracking Resident Involvement: Resident Care Provided Care Provided: Adult Hospital Medicine (1) Acute on chronic congestive heart failure Heart failure type: unspecified Qualified Code(s): I50.9 - Heart failure, unspecified (2) COPD (chronic obstructive pulmonary disease) COPD type: unspecified COPD Qualified Code(s): J44.9 - Chronic obstructive pulmonary disease, unspecified (3) Hypertension Hypertension type: unspecified Qualified Code(s): I10 - Essential (primary) hypertension
--- NOTE | 2021-06-17 09:37 | Billing Data ---
Date of Service June 16, 2021 Coding Level of Care Code 61514 Initial Inpt Care Lvl 3
[2021-06-17] MEDS: INSULIN ASPART PER UNIT SC SCH ×3 (11:39→21:14)
[2021-06-18] MEDS: FUROSEMIDE 40 MG/4 ML VIAL IV SCH (04:53)
[2021-06-18] MEDS: INSULIN ASPART PER UNIT SC SCH ×2 (07:24→11:41)
[2021-06-18] MEDS: FLUTICASONE/VILANTEROL 200/25MCG 14 PUFFS/INHALER INH SCH (08:30)
[2021-06-18] MEDS: MAGNESIUM OXIDE 400 MG TAB PO SCH (08:31)
[2021-06-18] MEDS: INSULIN GLARGINE SOLOSTAR 100 UNITS/ML 3 ML PEN SC SCH (08:31)
[2021-06-18] MEDS: PANTOprazole 40 MG TAB PO SCH (08:32)
[2021-06-18] MEDS: VALSARTAN/SACUBITRIL 103/97MG TAB PO SCH (08:32)
[2021-06-18] MEDS: ASPIRIN 81 MG ECTAB PO SCH (08:32)
[2021-06-18] MEDS: METOPROLOL SUCC 50MG EXT REL TAB PO SCH (08:32)
[2021-06-18] MEDS: SPIRONOLACTONE 25 MG TAB PO SCH (08:32)
[2021-06-18] MEDS: ENOXAPARIN INJ 40 MG/0.4 ML SYR SQ SCH (08:35)
[2021-06-18 09:37] LABS: BUN Creatinine Ratio 17.5 (10-20); Calcium 8.7 mg/dl (8.5-10.1); Creatinine Clr Calc Pharmacy 145.7 ml/min; Est GFR (African American) 109.6 ml/min; Est GFR (Non-African American) 94.6 ml/min; Magnesium 1.8 mg/dl (1.7-2.4); Phosphorus 5.2 mg/dl (2.5-4.9); Potassium 3.8 mmol/L (3.5-5.1)
--- NOTE | 2021-06-18 10:32 | Discharge Summary ---
Date of Service June 18, 2021 Admission HPI Per Admitting Provider Alok is a 45 year old male w/ PmHx of HFrEF w/ EF 15-20%, T2DM, HTN, morbid obesity, intellectual disability, COPD, chronic respiratory failure, MARIELENA, non- ischemic cardiomyopathy s/p ICD coming in for 2 days of shortness of breath. Patient is difficult to elicit history from as he is on BiPaP. He said he was experiencing shrotness of breath for 2 days prior to coming into the hospital and had increased purplish coloration of his lips. He has also had more swelling in the lower extremities. Patient endorsed taking his home blood pressure and heart failure medications on time today. He also endorses chest pain at the sternum. He has had sputum production as well as hemoptysis. Principal Diagnosis congestive heart failure exacerbation Discharge Exam Constitutional WD/WN, vitals as above + morbidly obese and + disheveled; no acute distress Eyes PERRL, conjunctivae normal, anicteric sclerae Respiratory + cough and able to speak in complete sentences; no respiratory distress, no labored breathing and does not use accessory muscles Auscultation: + diminished lung sounds Cardiovascular Rate/Rhythm: regular rate and regular rhythm Heart Sounds: no gallop, no murmur and no cardiac rub Extremities: + pedal edema; no calf tenderness Gastrointestinal (Abdomen) Inspection/Auscultation: normal bowel sounds; abdomen not distended Percussion/Palpation: abdomen soft; abdomen nontender and no guarding Neurologic PERRL, EOMI, accommodation nl, no face palsy, no dysarthria CN's II-XI intact bilaterally and moves all extremities Psychiatric Orientation: alert and oriented x 3 Discharge Data Allergies Allergy/AdvReac Type Severity Reaction Status Date / Time ceftriaxone Allergy Severe SHORTNESS Verified 06/16/21 15:02 OF BREATH lidocaine Allergy Severe SHORTNESS Verified 06/16/21 15:02 OF BREATH, diaphoretic, hives procaine Allergy Severe SHORTNESS Verified 06/16/21 15:02 OF BREATH, diaphoretic, hives amoxicillin Allergy Intermediate HIVES/FACIAL Verified 06/16/21 15:02 SWELLING clavulanic acid Allergy Intermediate HIVES/FACIAL Verified 06/16/21 15:02 SWELLING lisinopril Allergy Intermediate HIVES Verified 06/16/21 15:02 shellfish derived Allergy Verified 06/16/21 15:02 acetaminophen AdvReac Mild NAUSEA Verified 06/16/21 15:02 albuterol AdvReac Mild proair Verified 06/16/21 15:02 "trouble taking breaths" Fish Containing Products AdvReac Unknown Unknown Verified 06/16/21 15:02 Consultations 06/16/21 17:45 ED Decision to Admit Stat Ordered Studies 06/16/21 13:35 CT head/brain wo con Stat 06/16/21 13:36 CT angio chest PE protocol Stat Hospital Course (1) Acute on chronic congestive heart failure: Alok is a 45 year old male w/ PmHx of HFrEF w/ EF 15-20%, T2DM, HTN, morbid obesity, intellectual disability, COPD, chronic respiratory failure, MARIELENA, non-ischemic cardiomyopathy s/p ICD admitted for acute respiratory failure and CHF exacerbation. Acute CHF exacerbation/HFrEF/Acute respiratory failure: -exacerbation likely due to dietary non-compliance as he does not track or monitor sodium intake daily -CXR w/ diffuse interstitial thickening w/ hazy appearance at lung base indicating pulmonary edema. -CTA chest: cardiomegaly w/ PAH, Artifact vs tiny pulmonary embolus in subsegmental RLL. Interstitial pulmonary edema w/ small pleural effusion. B/l ground glass opacities and consolidative opacities. -BNP 592 on admission -Trop negative x2 on admission -Given 40mg IV Lasix x2 in ED; before continuation of Lasix 40mg IV BID during admission -net negative 4 liters since admission -continue Torsemide 40mg BID, Entresto, and Metoprolol -to have follow-up with [facility] [address] CHF/cardiology clinic -encouraged dietary compliance/monitoring Vtach Run/AICD present: -Hx of cardiomyopathy s/p AICD placement. -Last checked 05/04/21 by [facility] [address] Cardiology with normal function -continue Metoprolol 100mg BID T2DM: -Last A1c in February 23.5. likely due to non-compliance -BSGs improved during admission with sliding scale insulin -resume dulaglutide and Humalog Hypertension: -Continue home Metoprolol 100mg BID COPD: -Less likely COPD exacerbation. -Continue home regimen. MARIELENA: -CPAP at night. (2) Acute on chronic heart failure with reduced ejection fraction and diastolic dysfunction: (3) Hypertension: (4) Acute and chronic respiratory failure with hypoxia: (5) AICD (automatic cardioverter/defibrillator) present: (6) V tach: (7) Chest pain: (8) Hemoptysis: (9) Obstructive sleep apnea: (10) COPD (chronic obstructive pulmonary disease): Total Time Total Time Spent Total Time Spent (In Minutes): 30 Discharge Plan Discharge Items Patient Disposition: Home - Self-Care Reason For Visit: CHF EXACERBATION Discharge Diagnosis: CHF exacerbation Activity: Per Instructions section Non-emergency contact: Primary Care Provider and [employer] Call non-emergency contact if: you have any medication questions, your symptoms worsen and you have a fever Follow-up/Referrals: Richa Burr CRNP [Primary Care Provider] - Diet: Carb Consistent or DM2, Heart Healthy and Low Sodium (2gm) Addtl Attending Provider Instructions: Call your Primary Care doctor if any of the following symptoms or problems start or get worse: * Shortness of breath or difficulty breathing * Wake up at night short of breath * Chest pain * Cough * Swelling of your hands, feet, or legs * More fatigued or tired with your normal activity * Palpitations - sudden fast heart beats WEIGHT * Weigh yourself every morning after using the bathroom. * Use the same scale. * Wear the same amount of clothing. * Write your weight down on a chart. * Call your Primary Care doctor if you gain more than 2-3 pounds in 1-2 days. MEDICATIONS * Use this discharge instruction sheet for medication instructions. * Take your medications at the time your doctor ordered. * Do not skip a dose of your medicines. * If you miss a dose of medicine, take it as soon as possible, but DO NOT DOUBLE A DOSE. * Read your medicine information when you get home. * Know all of the side effects of your medicine. If in doubt, ask your pharmacist * Call your Primary Care doctor's office if you have any side effects. * Be sure all of your doctors know what medicine and herbs you take (including cold, flu, and herbal medicine). Take the following with you to your follow-up doctor appointments: * Weight Chart * Medication List * List of questions Do not drink excessive alcohol, beer or wine. Pending Studies at Discharge: No Stand-Alone Forms: [employer], Smoking Cessation Medications and DC Order Prescriptions: Continued budesonide-formoterol [Symbicort] 160-4.5 mcg/actuation HFA aerosol inhaler 2 inh inhalation BID Qty: 10.2 RF: 2 albuterol sulfate 90 mcg/actuation HFA aerosol inhaler 1 inh inhalation QID Qty: 8.5 RF: 2 dulaglutide 3 mg/0.5 mL pen injector 3 mg SUBCUT WK Qty: 2 RF: 5 alcohol swabs [Alcohol Pads] Pads, Medicated 4 pad topical DAILY 90 Days Qty: 400 RF: 0 spironolactone [Aldactone] 25 mg tablet 75 mg PO QAM Qty: 90 RF: 5 Entresto 97-103 mg tablet 1 tab PO BID Qty: 60 RF: 5 metoprolol succinate 100 mg tablet extended release 24 hr 100 mg PO BID Qty: 60 RF: 5 albuterol sulfate 2.5 mg /3 mL (0.083 %) solution for nebulization 2.5 mg inhalation Q6H Qty: 15 RF: 2 esomeprazole magnesium [Nexium] 20 mg capsule,delayed release(DR/EC) 40 mg PO BID Qty: 60 RF: 5 Humalog Mix 50-50 KwikPen 100 unit/mL (50-50) insulin pen 40 unit subcut BID 30 Days Qty: 24 RF: 5 nitroglycerin [Nitrostat] 0.4 mg tablet, sublingual 0.4 mg sublingual UD PRN (Reason: Chest Pain) RF: 0 cholecalciferol (vitamin D3) [Vitamin D3] 50 mcg (2,000 unit) Tablet 100 mcg PO BID RF: 0 torsemide 20 mg tablet 40 mg PO BID Qty: 60 RF: 5 isosorbide mononitrate 30 mg tablet extended release 24 hr See Rx Instructions .ROUTE .COMPLEX RF: 0 aspirin [Aspirin Low Dose] 81 mg tablet,delayed release (DR/EC) 81 mg PO QAM RF: 0 magnesium oxide 400 mg (241.3 mg magnesium) tablet 400 mg PO QAM RF: 0 famotidine 20 mg tablet 20 mg PO QAM RF: 0 Discharge Orders: Discharge Order (Routine); Ordered 06/18/21 Ordered By: Edward Willson Admission Data Admit Date/Time: 06/16/21 18:56 Attending Provider: Amalia Mosley Admit Provider: Sami Centeno Primary Care Provider: Richa Burr Other Providers: Shemar Sky Other Interventions: Discharge Summary Assessment (RN) Last Done: 06/18/21 11:59 Supervising Physician Co-Signing Physician Notes Resident Physician Supervision Note: I independently interviewed and examined the patient and verified the caraballo history and physical, reviewed labs and image studies and agree with resident Dr. Willson findings and care plan. Resident Activity Tracking Resident Involvement: Resident Care Provided Care Provided: Adult [facility]
== END 2021-06-18 13:16 | disposition home or self-care (01) | DRG 291 ==
LOC: ED 13:00 → SUATTDRO 18:56 → 2S 18:56

== ENCOUNTER 2021-08-31 18:52 | Inpatient (IN) ==
[2021-08-31 21:00] LABS: Partial Thromboplastin Ratio 1.1; Partial Thromboplastin Time 30.4 Seconds (21.0-31.0); Prothrombin Time 10.9 Seconds (9.0-12.0)
[2021-08-31 21:04] LABS: D Dimer 660 ug/L FEU (0-500)
[2021-08-31 21:07] LABS: Alanine Aminotransferase 18 U/L (7-52); Albumin Globulin Ratio 1.1 (0.9-2); Albumin Level 3.7 gm/dl (3.4-5.0); Alkaline Phosphatase 82 U/L (34-104); Anion Gap 6 (3-11); Aspartate Aminotransferase 16 U/L (13-39); BUN Creatinine Ratio 11.1 (10-20); Blood Urea Nitrogen 9 mg/dl (6-23); Calcium 8.3 mg/dl (8.5-10.1); Carbon Dioxide 23 mmol/L (21-32); Chloride 107 mmol/L (98-107); Est GFR (African American) 125.3 ml/min; Est GFR (Non-African American) 108.1 ml/min; Globulin 3.3 gm/dl (2.5-4.0); Glucose 254 mg/dl (70-99(Fasting)); Magnesium 1.5 mg/dl (1.7-2.4); Sodium 136 mmol/L (136-145)
[2021-08-31 21:13] LABS: Troponin I High Sensitivity 20.6 pg/ml (0-20)
[2021-08-31 21:20] LABS: Basophils # (auto) 0.03 K/uL (0-0.2); Basophils % (auto) 0.3 %; Eosinophils # (auto) 0.08 K/uL (0-0.50); Eosinophils % (auto) 0.8 %; Hematocrit (blood only) 43.3 % (40.1-51.0); Hemoglobin 14.1 g/dl (14.0-18.0); Immature Granulocytes # (auto) 0.04 K/uL (0.00-0.02); Immature Granulocytes % (auto) 0.4 %; Lymphocytes % (auto) 14.6 %; Mean Corpuscular Hemoglobin 27.4 pg (25.0-34.0); Mean Corpuscular Hgb Conc 32.6 g/dL (32.0-36.0); Mean Corpuscular Volume 84.2 fL (80.0-100.0); Mean Platelet Volume 10.1 fL (9.4-12.4); Monocytes # (auto) 0.66 K/uL (0.24-0.82); Monocytes % (auto) 6.4 %; Neutrophils # (auto) 7.95 K/uL (1.4-6.5); Neutrophils % (auto) 77.5 %; Platelet Count 170 K/uL (130-400); RDW Standard Deviation 45.8 fL (36.4-46.3); Red Blood Count 5.14 M/uL (4.63-6.08); White Blood Count 10.26 K/ul (4.8-10.8)
--- NOTE | 2021-08-31 22:17 | Emergency Department Note ---
History of Present Illness General Chief complaint: Cardiac Assessment Stated complaint: SPITTING UP BLOOD, CANT EAT, SOB Time Seen by Provider: 08/31/21 22:01 Source: patient, EMS, RN notes reviewed and old records reviewed Mode of arrival: ambulatory Limitations: no limitations History of Present Illness Maximum Pain Intensity: 9 Patient is a 45-year-old male who comes in complaining of pain across his upper abdomen/lower chest. Is been coughing and he does have some hemoptysis at times denies fever chills no trauma no pain up in his chest. He does have chronic CHF and is on chronic oxygen. No injuries. No lower abdominal pain. No blood or melena in his stool. Home Medications Medication Instructions Recorded Confirmed Type nitroglycerin 0.4 mg sublingual 0.4 mg sublingual UD PRN Chest Pain 04/24/19 08/31/21 History tablet (Nitrostat) cholecalciferol (vitamin D3) 50 100 mcg PO BID 10/04/19 08/31/21 History mcg (2,000 unit) tablet (Vitamin D3) albuterol sulfate 90 mcg/actuation 1 inh inhalation QID #8.5 grams 12/09/20 08/31/21 Rx aerosol inhaler albuterol sulfate 2.5 mg (3 mL) inhalation Q6H #15 mL 02/21/21 08/31/21 Rx metoprolol succinate 100 mg 100 mg PO BID #60 tabs 02/21/21 08/31/21 Rx tablet,extended release 24 hr sacubitril 97 mg-valsartan 103 mg 1 tab PO BID #60 tabs 02/21/21 08/31/21 Rx tablet (Entresto) dulaglutide 3 mg/0.5 mL 3 mg (0.5 mL) subcut WK #2 mL 03/22/21 08/31/21 Rx subcutaneous pen injector insulin lispro protamine-lispro 40 unit (0.4 mL) subcut BID 30 03/22/21 08/31/21 Rx 100 unit/mL (50-50) subcutaneous days #24 mL pen (Humalog Mix 50-50 KwikPen) Symbicort 160 mcg-4.5 2 inh inhalation BID #10.2 grams 05/04/21 08/31/21 Rx mcg/actuation HFA aerosol inhaler (budesonide-formoterol) aspirin 81 mg tablet,delayed 81 mg PO QAM 06/16/21 08/31/21 History release (Neisha Low Dose Aspirin) famotidine 20 mg tablet 20 mg PO QAM 06/16/21 08/31/21 History magnesium oxide 400 mg (241.3 mg 400 mg PO QAM 06/16/21 08/31/21 History magnesium) tablet esomeprazole magnesium 40 mg 40 mg PO BID 08/31/21 08/31/21 History capsule,delayed release spironolactone 25 mg tablet 75 mg PO UD 08/31/21 08/31/21 History (Aldactone) torsemide 20 mg tablet See Rx Instructions .Route 09/02/21 08/31/21 Rx .COMPLEX 1 week #42 tabs Allergies Allergy/AdvReac Type Severity Reaction Status Date / Time ceftriaxone Allergy Severe SHORTNESS Verified 08/31/21 22:13 OF BREATH lidocaine Allergy Severe SHORTNESS Verified 08/31/21 22:13 OF BREATH, diaphoretic, hives procaine Allergy Severe SHORTNESS Verified 08/31/21 22:13 OF BREATH, diaphoretic, hives amoxicillin Allergy Intermediate HIVES/FACIAL Verified 08/31/21 22:13 SWELLING clavulanic acid Allergy Intermediate HIVES/FACIAL Verified 08/31/21 22:13 SWELLING lisinopril Allergy Intermediate HIVES Verified 08/31/21 22:13 shellfish derived Allergy Unknown Verified 08/31/21 22:13 acetaminophen AdvReac Mild NAUSEA Verified 08/31/21 22:13 albuterol AdvReac Mild proair Verified 08/31/21 22:13 "trouble taking breaths" Fish Containing Products AdvReac Unknown Unknown Verified 08/31/21 22:13 Past Med/Surg History Medical History Bacteremia Chronic respiratory failure Dilatation of thoracic aorta Fatty liver Hearing loss of both ears Housing instability, currently housed, at risk for homelessness Hx of local infection of skin and subcutaneous tissue Iliac aneurysm Lung nodule NICM (nonischemic cardiomyopathy) Pt admitted for elective ICD. Underwent procedure without any complications monitored over night and discharged home. 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 Heart disease Myocardial infarction Mother , age 67 of a ruptured neck vessel Sudden Other Depression Lung disease No pertinent family history Denies family history of Ovarian cancer Prostate cancer Breast cancer Colorectal cancer Social History Smoking Status: Never smoker Tobacco Type: Cigarettes Age Started Using Tobacco: 14; Age Quit Using Tobacco: 18; Cigarettes Per Day: 40; Second Hand Exposure: No; Hx Alcohol Use: No Hx Substance Use: No Preferred Language: Polish Communication Ability: Effective Visual Impairment: No Limitations Hearing Ability: Normal Industrial Custodian Required: No Beliefs That Will Affect Care: None marital status: Current Living Situation: Spouse current occupational status: unemployed How many Children do You have: 0 Feels Safe at Home: Yes Childhood Exposure to Second-Hand Smoke: Yes Dental Care, Regularly: Yes Physical Activity Frequency: Does not Exercise Assistive Devices: BiPap, Oxygen - Continuous, Scooter/Electric Scooter and Walker Review of Systems A total of 10 systems reviewed and were otherwise negative Physical Exam Vital Signs Vital Signs - 24 hr 08/31/21 19:18 08/31/21 22:36 08/31/21 22:38 Temperature 35.9 C L Temperature Source Temporal Artery Scan Pulse Rate 114 H 103 H Pulse Rate [Apical] 108 H Pulse Rate from SpO2 Sensor 104 H Respiratory Rate 24 21 23 Respiratory Effort / Characteristics SOB on Exertion Non-Labored Spontaneous Blood Pressure 171/108 H Blood Pressure [Right Arm] 179/129 H Blood Pressure Mean 129 Blood Pressure Mean [Right Arm] 145 Pulse Oximetry 93 98 97 Oxygen Delivery Method Nasal Cannula Nasal Cannula Nasal Cannula Oxygen Flow Rate 5 5 5 Sepsis Recent Fever Within 48 Hours No Sepsis New/Unexplained Change in Mental Status No Sepsis Action Taken by Nursing No Action Required 08/31/21 23:30 Temperature Temperature Source Pulse Rate 106 H Pulse Rate [Apical] Pulse Rate from SpO2 Sensor Respiratory Rate 23 Respiratory Effort / Characteristics Blood Pressure Blood Pressure [Right Arm] Blood Pressure Mean Blood Pressure Mean [Right Arm] Pulse Oximetry Oxygen Delivery Method Oxygen Flow Rate Sepsis Recent Fever Within 48 Hours Sepsis New/Unexplained Change in Mental Status Sepsis Action Taken by Nursing General: Well developed well nourished ill-appearing middle-age male who appears supplemental oxygen and in no acute distress, breathing comfortably on room air. Normal speech HEENT: Normal cephalic atraumatic. Pupils are equal round and reactive to light. Extraocular movements are intact. Oropharynx is pink with moist mucous membranes. No swelling of the mouth lips or tongue. Neck: Supple with a midline trachea. No meningeal signs or stiffness, no JVD or bruits. No Stridor. Chest: Clear to auscultation bilaterally. No wheezes or rhonchi. No increased work of breathing. Heart: Regular rate and rhythm without murmurs or gallops. Abdomen: Soft nontender, nondistended without rebound guarding or rigidity. Extremities: No cyanosis clubbing or edema. No calf tenderness or assymetry Spine/Back. Non tender to palpation. No CVA tenderness Skin: Good turgor without rashes. Neurologic exam: Cranial nerves two through 12 are intact. Motor and sensation are intact and symmetrical throughout. Course Administered Medications Discontinued Medications Famotidine (Famotidine 20 Mg Tab) 20 mg PO QAM [facility] Stop: 10/01/21 08:59 Last Admin: 09/02/21 08:25 Dose: 20 mg Documented By: Admin: 09/01/21 10:24 Dose: 20 mg Documented By: SHIRLEY Fluticasone/Vilanterol (Fluticasone/Vilanterol 200/25mcg 14 Puffs/Inhaler) 1 puffs INH DAILY [facility] Stop: 10/01/21 08:59 Last Admin: 09/02/21 08:24 Dose: 1 puffs Documented By: Admin: 09/01/21 12:01 Dose: 1 puffs Documented By: SHIRLEY Furosemide (Furosemide 40 Mg/4 Ml Vial) 40 mg IV ONE ONE Stop: 09/01/21 11:41 Last Admin: 09/01/21 12:02 Dose: 40 mg Documented By: SHIRLEY Furosemide (Furosemide 40 Mg/4 Ml Vial) 40 mg IV BID17 [facility] Stop: 10/01/21 16:59 Last Admin: 09/01/21 17:08 Dose: 40 mg Documented By: SHIRLEY Furosemide (Furosemide 40 Mg/4 Ml Vial) 40 mg IV ONE ONE Stop: 09/01/21 18:43 Last Admin: 09/01/21 19:08 Dose: 40 mg Documented By: EDISON Furosemide (Furosemide 40 Mg/4 Ml Vial) 80 mg IV BID17 [facility] Stop: 10/02/21 08:59 Last Admin: 09/02/21 16:32 Dose: Not Given Documented By: Admin: 09/02/21 08:25 Dose: 80 mg Documented By: SHASTA Hydromorphone HCl (Hydromorphone Inj 0.5 Mg/0.5 Ml Syr) 0.25 mg IV NOW STA Stop: 09/01/21 19:40 Last Admin: 09/01/21 20:02 Dose: 0.25 mg Documented By: EDISON Magnesium Sulfate/Dextrose (Magnesium Sulfate / D5w) 1 gm in 100 mls @ 50 mls/hr IV Q2H [facility] Stop: 09/01/21 03:44 Last Infusion: 09/01/21 07:46 Dose: 0 mls/hr Documented By: SHASTA(2) Admin: 09/01/21 03:00 Dose: 50 mls/hr Documented By: Infusion: 09/01/21 02:01 Dose: 50 mls/hr Documented By: Admin: 09/01/21 00:01 Dose: 50 mls/hr Documented By: LAINEY Insulin Aspart (Insulin Aspart Per Unit) 0 units SC ACHS [facility] Stop: 10/01/21 01:59 Last Admin: 09/02/21 16:46 Dose: 13 units Documented By: SHASTA Co-signed By: BT Admin: 09/02/21 12:03 Dose: 16 units Documented By: SHASTA Co-signed By: DTT Admin: 09/02/21 08:23 Dose: 11 units Documented By: SHASTA Co-signed By: DTT Admin: 09/01/21 21:30 Dose: 4 units Documented By: EDISON Co-signed By: MTR Admin: 09/01/21 17:03 Dose: 14 units Documented By: WS Co-signed By: RB Admin: 09/01/21 12:02 Dose: 12 units Documented By: SHIRLEY Co-signed By: CG Admin: 09/01/21 09:15 Dose: 3 units Documented By: WS Co-signed By: RB Admin: 09/01/21 09:14 Dose: Not Given Documented By: SHIRLEY Insulin Glargine (Lantus Per Unit Charge) 40 units SQ BID [facility] Stop: 10/01/21 08:59 Last Admin: 09/01/21 09:14 Dose: 40 units Documented By: SHIRLEY Co-signed By: RB Insulin Glargine (Lantus Per Unit Charge) 25 units SQ BID [facility] Stop: 10/01/21 20:59 Last Admin: 09/02/21 08:24 Dose: 25 units Documented By: SHASTA Co-signed By: DTT Admin: 09/01/21 21:43 Dose: 25 units Documented By: EDISON Co-signed By: SAL Magnesium Oxide (Magnesium Oxide 400 Mg Tab) 400 mg PO QAM [facility] Stop: 10/01/21 08:59 Last Admin: 09/02/21 08:29 Dose: 400 mg Documented By: Admin: 09/01/21 10:24 Dose: 400 mg Documented By: SHIRLEY Metoprolol Succinate (Metoprolol Succ 50mg Ext Rel Tab) 100 mg PO BID [facility] Stop: 10/01/21 08:59 Last Admin: 09/02/21 08:25 Dose: 100 mg Documented By: Admin: 09/01/21 20:55 Dose: 100 mg Documented By: Admin: 09/01/21 10:24 Dose: 100 mg Documented By: SHIRLEY Pantoprazole Sodium (Pantoprazole 40 Mg Tab) 40 mg PO BID [facility] Stop: 10/01/21 08:59 Last Admin: 09/02/21 08:25 Dose: 40 mg Documented By: Admin: 09/01/21 20:53 Dose: 40 mg Documented By: Admin: 09/01/21 10:23 Dose: 40 mg Documented By: SHIRLEY Sacubitril/Valsartan (Valsartan/Sacubitril 103/97mg Tab) 1 tab PO BID [facility] Stop: 10/01/21 08:59 Last Admin: 09/02/21 08:25 Dose: 1 tab Documented By: Admin: 09/01/21 20:55 Dose: 1 tab Documented By: Admin: 09/01/21 10:24 Dose: 1 tab Documented By: SHIRLEY Spironolactone (Spironolactone 25 Mg Tab) 50 mg PO QAM [facility] Stop: 10/01/21 08:59 Last Admin: 09/02/21 08:26 Dose: 50 mg Documented By: Admin: 09/01/21 10:24 Dose: 50 mg Documented By: SHIRLEY Spironolactone (Spironolactone 25 Mg Tab) 25 mg PO PM [facility] Stop: 10/01/21 20:59 Last Admin: 09/01/21 20:55 Dose: 25 mg Documented By: EDISON Torsemide (Torsemide 20 Mg Tab) 40 mg PO BID17 [facility] Stop: 10/01/21 08:59 Last Admin: 09/01/21 10:24 Dose: 40 mg Documented By: SHIRLEY Vitamin D (Cholecalciferol 1,000 Units 25 Mcg Tab) 4,000 units PO BID [facility] Stop: 10/01/21 08:59 Last Admin: 09/02/21 08:24 Dose: 4,000 units Documented By: Admin: 09/01/21 20:56 Dose: 4,000 units Documented By: Admin: 09/01/21 10:23 Dose: 4,000 units Documented By: SHIRLEY Medical Decision Making Differential Diagnosis CHF, electrolyte or metabolic abnormality, acute coronary syndrome, anemia, PE, aortic pathology Medical Records Attestation: I reviewed the patient's medical records. Home Medications Current Medication List: was personally reviewed by me Laboratory Data Attestation: I reviewed the patient's lab results. Result diagrams: 09/02/21 06:18 09/02/21 06:18 Lab Results 08/31/21 08/31/21 08/31/21 Range/Units 20:31 20:31 20:31 WBC 10.26 (4.8-10.8) K/ul RBC 5.14 (4.63-6.08) M/uL Hgb 14.1 (14.0-18.0) g/dl Hct 43.3 (40.1-51.0) % MCV 84.2 (80.0-100.0) fL MCH 27.4 (25.0-34.0) pg MCHC 32.6 (32.0-36.0) g/dL RDW Std Deviation 45.8 (36.4-46.3) fL RDW Coeff of Zoltan 15.0 H (11.5-14.5) % Plt Count 170 (130-400) K/uL MPV 10.1 (9.4-12.4) fL Immature Gran % (Auto) 0.4 % Neut % (Auto) 77.5 % Lymph % (Auto) 14.6 % [place] % (Auto) 6.4 % Eos % (Auto) 0.8 % Baso % (Auto) 0.3 % Neut # (Auto) 7.95 H (1.4-6.5) K/uL Lymph # (Auto) 1.50 (1.2-3.4) K/uL [place] # (Auto) 0.66 (0.24-0.82) K/uL Eos # (Auto) 0.08 (0-0.50) K/uL Baso # (Auto) 0.03 (0-0.2) K/uL Immature Gran # (Auto) 0.04 H (0.00-0.02) K/uL PT 10.9 (9.0-12.0) Seconds INR 1.0 (0.9-1.1) APTT 30.4 (21.0-31.0) Seconds PTT Ratio 1.1 D-Dimer 660 H* (0-500) ug/L FEU Sodium 136 (136-145) mmol/L Potassium 4.0 (3.5-5.1) mmol/L Chloride 107 (98-107) mmol/L Carbon Dioxide 23 (21-32) mmol/L Anion Gap 6 (3-11) BUN 9 (6-23) mg/dl Creatinine 0.81 (0.6-1.4) mg/dl Est Cr Clr Drug Dosing Not Reportable Est GFR ( Amer) 125.3 ml/min Est GFR (Non-Af Amer) 108.1 ml/min BUN/Creatinine Ratio 11.1 (10-20) Glucose 254 H (70-99(Fasting)) mg/dl Calcium 8.3 L (8.5-10.1) mg/dl Magnesium 1.5 L (1.7-2.4) mg/dl Total Bilirubin 1.0 (0.2-1.0) mg/dl AST 16 (13-39) U/L ALT 18 (7-52) U/L Alkaline Phosphatase 82 (34-104) U/L Troponin I High Sens 20.6 H (0-20) pg/ml B-Natriuretic Peptide (0-100) pg/ml Total Protein 7.0 (6.0-8.3) gm/dl Albumin 3.7 (3.4-5.0) gm/dl Globulin 3.3 (2.5-4.0) gm/dl Albumin/Globulin Ratio 1.1 (0.9-2) Procalcitonin (0-0.5) ng/ml Urine Color Urine Appearance (Clear) Urine pH (4.5-7.5) Ur Specific [place] (1.000-1.030) Urine Protein (Negative) Urine Glucose (UA) (Negative) Urine Ketones (Negative) Urine Blood (Negative) Urine Nitrite (Negative) Urine Bilirubin (Negative) Urine Urobilinogen (Negative) Ur Leukocyte Esterase (Negative) Urine WBC (Auto) (0-5) /hpf Urine RBC (Auto) (0-4) /hpf U Hyaline Cast (Auto) (0-5) /lpf U Epithel Cells (Auto) (0-5) /lpf Urine Bacteria (Auto) (Negative) SARS-CoV-2, RNA, NAAT (NEGATIVE) 08/31/21 08/31/21 08/31/21 Range/Units 20:31 22:06 22:29 WBC (4.8-10.8) K/ul RBC (4.63-6.08) M/uL Hgb (14.0-18.0) g/dl Hct (40.1-51.0) % MCV (80.0-100.0) fL MCH (25.0-34.0) pg MCHC (32.0-36.0) g/dL RDW Std Deviation (36.4-46.3) fL RDW Coeff of Zoltan (11.5-14.5) % Plt Count (130-400) K/uL MPV (9.4-12.4) fL Immature Gran % (Auto) % Neut % (Auto) % Lymph % (Auto) % [place] % (Auto) % Eos % (Auto) % Baso % (Auto) % Neut # (Auto) (1.4-6.5) K/uL Lymph # (Auto) (1.2-3.4) K/uL [place] # (Auto) (0.24-0.82) K/uL Eos # (Auto) (0-0.50) K/uL Baso # (Auto) (0-0.2) K/uL Immature Gran # (Auto) (0.00-0.02) K/uL PT (9.0-12.0) Seconds INR (0.9-1.1) APTT (21.0-31.0) Seconds PTT Ratio D-Dimer (0-500) ug/L FEU Sodium (136-145) mmol/L Potassium (3.5-5.1) mmol/L Chloride (98-107) mmol/L Carbon Dioxide (21-32) mmol/L Anion Gap (3-11) BUN (6-23) mg/dl Creatinine (0.6-1.4) mg/dl Est Cr Clr Drug Dosing Est GFR ( Amer) ml/min Est GFR (Non-Af Amer) ml/min BUN/Creatinine Ratio (10-20) Glucose (70-99(Fasting)) mg/dl Calcium (8.5-10.1) mg/dl Magnesium (1.7-2.4) mg/dl Total Bilirubin (0.2-1.0) mg/dl AST (13-39) U/L ALT (7-52) U/L Alkaline Phosphatase (34-104) U/L Troponin I High Sens (0-20) pg/ml B-Natriuretic Peptide (0-100) pg/ml Total Protein (6.0-8.3) gm/dl Albumin (3.4-5.0) gm/dl Globulin (2.5-4.0) gm/dl Albumin/Globulin Ratio (0.9-2) Procalcitonin < 0.05 (0-0.5) ng/ml Urine Color Dark Yellow Urine Appearance Clear (Clear) Urine pH 5.0 (4.5-7.5) Ur Specific [place] 1.030 (1.000-1.030) Urine Protein 2+ H (Negative) Urine Glucose (UA) 3+ H (Negative) Urine Ketones Trace H (Negative) Urine Blood Negative (Negative) Urine Nitrite Negative (Negative) Urine Bilirubin 1+ H (Negative) Urine Urobilinogen Negative (Negative) Ur Leukocyte Esterase Negative (Negative) Urine WBC (Auto) 1-5 (0-5) /hpf Urine RBC (Auto) 0-4 (0-4) /hpf U Hyaline Cast (Auto) 1-5 (0-5) /lpf U Epithel Cells (Auto) >30 H (0-5) /lpf Urine Bacteria (Auto) Negative (Negative) SARS-CoV-2, RNA, NAAT NEGATIVE (NEGATIVE) 08/31/21 08/31/21 Range/Units 22:39 22:39 WBC (4.8-10.8) K/ul RBC (4.63-6.08) M/uL Hgb (14.0-18.0) g/dl Hct (40.1-51.0) % MCV (80.0-100.0) fL MCH (25.0-34.0) pg MCHC (32.0-36.0) g/dL RDW Std Deviation (36.4-46.3) fL RDW Coeff of Zoltan (11.5-14.5) % Plt Count (130-400) K/uL MPV (9.4-12.4) fL Immature Gran % (Auto) % Neut % (Auto) % Lymph % (Auto) % [place] % (Auto) % Eos % (Auto) % Baso % (Auto) % Neut # (Auto) (1.4-6.5) K/uL Lymph # (Auto) (1.2-3.4) K/uL [place] # (Auto) (0.24-0.82) K/uL Eos # (Auto) (0-0.50) K/uL Baso # (Auto) (0-0.2) K/uL Immature Gran # (Auto) (0.00-0.02) K/uL PT (9.0-12.0) Seconds INR (0.9-1.1) APTT (21.0-31.0) Seconds PTT Ratio D-Dimer (0-500) ug/L FEU Sodium (136-145) mmol/L Potassium (3.5-5.1) mmol/L Chloride (98-107) mmol/L Carbon Dioxide (21-32) mmol/L Anion Gap (3-11) BUN (6-23) mg/dl Creatinine (0.6-1.4) mg/dl Est Cr Clr Drug Dosing Est GFR ( Amer) ml/min Est GFR (Non-Af Amer) ml/min BUN/Creatinine Ratio (10-20) Glucose (70-99(Fasting)) mg/dl Calcium (8.5-10.1) mg/dl Magnesium (1.7-2.4) mg/dl Total Bilirubin (0.2-1.0) mg/dl AST (13-39) U/L ALT (7-52) U/L Alkaline Phosphatase (34-104) U/L Troponin I High Sens 22.5 H (0-20) pg/ml B-Natriuretic Peptide 528 H (0-100) pg/ml Total Protein (6.0-8.3) gm/dl Albumin (3.4-5.0) gm/dl Globulin (2.5-4.0) gm/dl Albumin/Globulin Ratio (0.9-2) Procalcitonin (0-0.5) ng/ml Urine Color Urine Appearance (Clear) Urine pH (4.5-7.5) Ur Specific [place] (1.000-1.030) Urine Protein (Negative) Urine Glucose (UA) (Negative) Urine Ketones (Negative) Urine Blood (Negative) Urine Nitrite (Negative) Urine Bilirubin (Negative) Urine Urobilinogen (Negative) Ur Leukocyte Esterase (Negative) Urine WBC (Auto) (0-5) /hpf Urine RBC (Auto) (0-4) /hpf U Hyaline Cast (Auto) (0-5) /lpf U Epithel Cells (Auto) (0-5) /lpf Urine Bacteria (Auto) (Negative) SARS-CoV-2, RNA, NAAT (NEGATIVE) Imaging Data Attestation: I personally reviewed and interpreted this imaging study as follows: My Impression: [id number] consistent with CHF with increased interstitial markings bilaterally. No focal infiltrate or pneumothorax ECG Data Attestation: I personally reviewed and interpreted this ECG as follows: Indication: + chest pain Rate (beats per minute): 108 Rhythm: + normal sinus ECG Intervals/blocks: + Normal QRS, + Normal QT and + Normal IN ECG [place]: + Normal ECG ST segments: + Normal ST segments ECG Findings: no PACs or no PVCs Comparison ECG Date: from (06/17/21) Change: no significant change MDM Narrative Patient comes in as described above he is a complex medical history he has had pain across his chest and the coughing up some blood. He is on no blood thinners. EKG was obtained and does not show any difference compared to old his initial troponins borderline at 20. He has no fever or white count to suggest infection he has no significant anemia. she has no significant electrolyte or metabolic abnormalities. X-ray does show some congestive heart failure likely. His dimer is mildly elevated do not he likely has a blood clot. COVID testing was negative. I did offer to do a CT but he tells me he cannot fully lay flat because he is short of breath. Given his complex medical history I do think he needs to be admitted/observed and consulted Dr. Arredondo to see him for these measures Impression & Plan SOB (shortness of breath), Hemoptysis, CHF (congestive heart failure), Lab test negative for COVID-19 virus Discharge Plan Visit Data Chief Complaint: Cardiac Assessment Stated Complaint: SPITTING UP BLOOD, CANT EAT, SOB ED Provider: Jason Noland Discharge Problem: SOB (shortness of breath), Hemoptysis, CHF (congestive heart failure), Lab test negative for COVID-19 virus Patient Disposition: Admitted As Inpatient Discharge Instructions Interventions: ED Discharge Assessment Last Done: 09/01/21 00:57 : CHF (congestive heart failure) Qualifiers: Heart failure type: unspecified Heart failure chronicity: acute on chronic Qualified Code(s): I50.9 - Heart failure, unspecified
[2021-08-31 22:36] LABS: Appearance Urine Clear (Clear); Bacteria Urine Automated Negative (Negative); Blood Urine Negative (Negative); Color Urine Dark Yellow; Epithelial Cell Urine Auto >30 /lpf (0-5); Glucose Urine UA 3+ (Negative); Ketones Urine Trace (Negative); Leukocyte Esterase Urine Negative (Negative); Nitrite Urine Negative (Negative); Protein Urine 2+ (Negative); RBC Urine Automated 0-4 /hpf (0-4); Urobilinogen Urine Negative (Negative)
[2021-08-31 22:37] LABS: Bilirubin Urine 1+ (Negative)
--- NOTE | 2021-08-31 23:12 | History & Physical Report ---
Date of Service August 31, 2021 Assessment & Plan (1) Hemoptysis: Plan: Symptoms reportedly going on for several months, and have become more frequent over last several weeks. No associated fever/chills or respiratory decompensation beyond poor chronic baseline. Unclear etiology at this time. ?airway epithelium injury due to chronic cough. Do not suspect infection (afebrile, no leukocytosis, procalcitonin negative). - CXR with chronic mild pulmonary vascular congestion - does not appear worse than previous study in 06/2021 - ordered CTA chest for further evaluation (PE protocol, given tachycardia) - consulted Pulmonology - appreciate recs (2) Elevated troponin: Plan: hsTroponin 20.6 --> 22.5. No chest pain, although patient does have epigastric pain. EKG with T-wave inversions in several lateral leads but no ST/T abnormalities. Suspect demand ischemia due to tachycardia. Low suspicion for ACS at this time. - trend hsTroponin in AM - PRN EKG/Nitro for chest pain (3) Epigastric abdominal pain: Plan: In context of chronic GERD. Without alarm symptoms such as vomiting/hematemesis, melena or hematochezia. BMs have reportedly been formed and occur daily - likely GERD exacerbation vs constipation. - CT A/P pending - continue home Pepcid/Esomeprazole - ordered PRN Miralax (4) Hypomagnesemia: Plan: Mg 1.5 - repleted with 2g Mag sulfate. - trend in AM (5) HFrEF (heart failure with reduced ejection fraction): Plan: EF 20-25% per TTE done in 06/2021 at [facility]. Patient does have mild LE pitting edema and CXR shows mild pulmonary vascular congestion, but BNP is 528 which is ~baseline for this patient and he is at baseline oxygen requirements. Do not suspect acute exacerbation. - continue home Torsemide, Spironolactone, Entresto, Toprol XL, Aspirin - daily weights, strict I/Os, 2g sodium restriction - trend BMP daily (6) COPD (chronic obstructive pulmonary disease): Plan: Chronic. No exacerbation. - continue home inhalers (7) Obstructive sleep apnea: Plan: CPAP ordered (8) Chronic respiratory failure: Plan: Chronically uses 5L/min supplemental oxygen at all times. No acute exacerbation. - continue supplemental oxygen with goal SpO2 90-92% (9) Diabetes mellitus type II, uncontrolled: Plan: A1c 12.5 in 02/2021. - check A1c - SSI + Lantus 40 units BID while hospitalized Plan FEN/GI: heart-healthy/DM2 diet with 2g sodium restriction DVT Prophylaxis: SCDs, hold chemoppx due to hemoptysis Code Status: full code Disposition: med/tele History of Present Illness Primary Care Provider: CM Hitchcock Alok Huff is a 45yo male with PMHx significant for HFrEF (EF 20-25% in 06/2021), T2DM (A1c 12.5 in 02/2021), HTN, morbid obesity, intellectual disability, COPD, chronic respiratory failure (5L at home at all times), MARIELENA, OHS, non-ischemic cardiomyopathy s/p ICD, who presented to [facility] ED on 08/31 for pain across his lower chest and upper abdomen, with associated cough and occasional hemoptysis. Patient reports that he was recently admitted to [facility] for ~1 week for acute on chronic HFrEF - he reportedly had diuretic regimen increased and was discharged home several weeks ago. Since discharge the patient reports generalized weakness/fatigue and cough productive of blood. Reports that he can will often cough up "half a cup" of blood. These symptoms have been occurring daily and then last night patient started to have epigastric abdominal pain, with associated decreased appetite. Patient denies fever/chills. Denies nausea/vomiting or hematemesis. Denies diarrhea, constipation, melena or hematochezia. On further questioning the patient does admit to coughing up blood "from time to time" over the last several months. Patient does not smoke or drink. He is wheelchair-dependent. In the ED the patient was hypertensive to 170s/100s and tachycardic in 100s- 110s. Required 5L/min nasal cannula. Labs significant for d-dimer 660, Mg 1.5, BSG 254. COVID-19 negative. CXR with mild pulmonary vascular congestion - appears similar to previous study in 06/2021. BNP 528 (~baseline). hsTroponin 20.6 --> 22.5. No chest pain. EKG with T-wave inversions in several lateral leads but no ST/T abnormalities. Allergies Allergy/AdvReac Type Severity Reaction Status Date / Time ceftriaxone Allergy Severe SHORTNESS Verified 08/31/21 22:13 OF BREATH lidocaine Allergy Severe SHORTNESS Verified 08/31/21 22:13 OF BREATH, diaphoretic, hives procaine Allergy Severe SHORTNESS Verified 08/31/21 22:13 OF BREATH, diaphoretic, hives amoxicillin Allergy Intermediate HIVES/FACIAL Verified 08/31/21 22:13 SWELLING clavulanic acid Allergy Intermediate HIVES/FACIAL Verified 08/31/21 22:13 SWELLING lisinopril Allergy Intermediate HIVES Verified 08/31/21 22:13 shellfish derived Allergy Unknown Verified 08/31/21 22:13 acetaminophen AdvReac Mild NAUSEA Verified 08/31/21 22:13 albuterol AdvReac Mild proair Verified 08/31/21 22:13 "trouble taking breaths" Fish Containing Products AdvReac Unknown Unknown Verified 08/31/21 22:13 Home Medications Medication Instructions Recorded Confirmed Type nitroglycerin 0.4 mg sublingual 0.4 mg sublingual UD PRN Chest Pain 04/24/19 08/31/21 History tablet (Nitrostat) cholecalciferol (vitamin D3) 50 100 mcg PO BID 10/04/19 08/31/21 History mcg (2,000 unit) tablet (Vitamin D3) albuterol sulfate 90 mcg/actuation 1 inh inhalation QID #8.5 grams 12/09/20 0 08/31/21 Rx aerosol inhaler albuterol sulfate 2.5 mg (3 mL) inhalation Q6H #15 mL 02/21/21 08/31/21 Rx metoprolol succinate 100 mg 100 mg PO BID #60 tabs 02/21/21 08/31/21 Rx tablet,extended release 24 hr sacubitril 97 mg-valsartan 103 mg 1 tab PO BID #60 tabs 02/21/21 08/31/21 Rx tablet (Entresto) torsemide 20 mg tablet 40 mg PO BID #60 tabs 02/26/21 08/31/21 Rx dulaglutide 3 mg/0.5 mL 3 mg (0.5 mL) subcut WK #2 mL 03/22/21 08/31/21 Rx subcutaneous pen injector insulin lispro protamine-lispro 40 unit (0.4 mL) subcut BID 30 03/22/21 08/31/21 Rx 100 unit/mL (50-50) subcutaneous days #24 mL pen (Humalog Mix 50-50 KwikPen) Symbicort 160 mcg-4.5 2 inh inhalation BID #10.2 grams 05/04/21 08/31/21 Rx mcg/actuation HFA aerosol inhaler (budesonide-formoterol) aspirin 81 mg tablet,delayed 81 mg PO QAM 06/16/21 08/31/21 History release (Neisha Low Dose Aspirin) famotidine 20 mg tablet 20 mg PO QAM 06/16/21 08/31/21 History magnesium oxide 400 mg (241.3 mg 400 mg PO QAM 06/16/21 08/31/21 History magnesium) tablet esomeprazole magnesium 40 mg 40 mg PO BID 08/31/21 08/31/21 History capsule,delayed release spironolactone 25 mg tablet 75 mg PO UD 08/31/21 08/31/21 History (Aldactone) Past Med/Surg History Medical History Bacteremia Chronic respiratory failure Dilatation of thoracic aorta Fatty liver Hearing loss of both ears Housing instability, currently housed, at risk for homelessness Hx of local infection of skin and subcutaneous tissue Iliac aneurysm Lung nodule NICM (nonischemic cardiomyopathy) Pt admitted for elective ICD. Underwent procedure without any complications monitored over night and discharged home. 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 Heart disease Myocardial infarction Mother , age 67 of a ruptured neck vessel Sudden Other Depression Lung disease No pertinent family history Denies family history of Ovarian cancer Prostate cancer Breast cancer Colorectal cancer Social History Smoking Status: Never smoker Tobacco Type: Cigarettes Age Started Using Tobacco: 14; Age Quit Using Tobacco: 18; Cigarettes Per Day: 40; Second Hand Exposure: No; Hx Alcohol Use: No Hx Substance Use: No Preferred Language: Occitan Communication Ability: Effective Visual Impairment: No Limitations Hearing Ability: Normal Moto Mix Operator Required: No Beliefs That Will Affect Care: None marital status: Current Living Situation: Spouse current occupational status: unemployed How many Children do You have: 0 Feels Safe at Home: Yes Safety Concerns: Feels Safe At This Time Childhood Exposure to Second-Hand Smoke: Yes Dental Care, Regularly: Yes Physical Activity Frequency: Does not Exercise Assistive Devices: BiPap, Oxygen - Continuous, Scooter/Electric Scooter and Walker Review of Systems Review of Systems: All systems reviewed & are unremarkable except as noted in HPI & below Physical Exam Physical Exam: General: A&Ox3. NAD. Cooperative. Morbidly obese. HEENT: Atraumatic, normocephalic. Pulm: Decreased aeration bilaterally but without wheezes/crackles. Symmetrical chest rise. No increase work of breathing. No respiratory distress. Cardiac: RRR, -mrg. Radial pulses intact and symmetrical. 1+ pitting edema to shins bilaterally. Abdominal: soft, protuberant but non-distended, moderate epigastric tenderness without guarding or rebound, BS x 4 Skin: warm, dry, no rash Results & Data Results & Data ([facility]) Vital Signs (Past 12 Hours) Vital Signs Temp Pulse Pulse Resp BP BP Pulse Ox 08/31/21 22:36 108 H 21 179/129 H 98 08/31/21 19:18 35.9 C L 114 H 24 171/108 H 93 O2 Del Method O2 Flow Rate 08/31/21 22:36 Nasal Cannula 5 08/31/21 19:18 Nasal Cannula 5 Supervising Physician Co-Signing Physician Notes Attending addendum: I have physically seen this patient, have supervised the medical residents activities, and agree with the H&P unless as otherwise noted. Assessment and Plan: Recurrent hemoptysis- Patient reports symptoms have been ongoing for several months, and becoming more frequent over the last few weeks Ordered CTA chest to further assess, however, patient unable to tolerate Consult pulmonology Avoiding antiplatelet and anticoagulant medications for now Elevated troponin- Minimally elevated highly sensitive troponin initially 20.6 and increased to 22.5 we will follow on telemetry and follow serially Hypomagnesemia- Magnesium 1.5 upon admission Given 2 g mag sulfate IV, Recheck laboratories in a.m. HFrEF- Continue usual medications: Torsemide, spironolactone, Entresto, metoprolol succinate and aspirin Follow serial BMP magnesium levels Remaining orders and notations as noted Resident Activity Tracking Resident Involvement: Resident Care Provided Care Provided: Adult Hospital Medicine (1) Diabetes mellitus type II, uncontrolled Glycemic state: with hyperglycemia Qualified Code(s): E11.65 - Type 2 diabetes mellitus with hyperglycemia (2) COPD (chronic obstructive pulmonary disease) COPD type: unspecified COPD Qualified Code(s): J44.9 - Chronic obstructive pulmonary disease, unspecified
[2021-09-01] MEDS: MAGNESIUM SULFATE / D5W 1 GM/100 ML BAG IV SCH ×2 (00:01→03:00)
[2021-09-01] MEDS ORDERED: CARBOHYDRATES FOR HYPOGLYCEMIA PO PRN (00:46)
[2021-09-01] MEDS ORDERED: NITROGLYCERIN SL 0.4 MG/TAB TAB SL PRN (00:46)
[2021-09-01] MEDS ORDERED: ONDANSETRON INJ 2 MG/ML 2 ML VIAL IV PRN (00:46)
[2021-09-01] MEDS ORDERED: GLUCOSE 40% GEL 15 GM TUBE PO PRN (00:46)
[2021-09-01] MEDS ORDERED: GLUCAGON FOR INJ 1 MG VIAL SQ PRN (00:46)
[2021-09-01] MEDS ORDERED: ACETAMINOPHEN 325 MG TAB PO PRN (00:46)
[2021-09-01] MEDS ORDERED: GLUCOSE 10 TAB/TUBE PO PRN (00:46)
[2021-09-01] MEDS ORDERED: DEXTROSE 50% 50 ML SYRINGE IV PRN (00:46)
[2021-09-01] MEDS ORDERED: POLYETHYLENE (MIRALAX) 17 GM PACK PO PRN (01:04)
[2021-09-01 05:58] LABS: Basophils # (auto) 0.04 K/uL (0-0.2); Basophils % (auto) 0.5 %; Eosinophils # (auto) 0.16 K/uL (0-0.50); Eosinophils % (auto) 1.9 %; Hematocrit (blood only) 41.1 % (40.1-51.0); Hemoglobin 13.3 g/dl (14.0-18.0); Immature Granulocytes # (auto) 0.04 K/uL (0.00-0.02); Immature Granulocytes % (auto) 0.5 %; Lymphocytes # (auto) 2.35 K/uL (1.2-3.4); Lymphocytes % (auto) 27.3 %; Mean Corpuscular Hemoglobin 27.7 pg (25.0-34.0); Mean Corpuscular Hgb Conc 32.4 g/dL (32.0-36.0); Mean Corpuscular Volume 85.4 fL (80.0-100.0); Mean Platelet Volume 10.1 fL (9.4-12.4); Monocytes # (auto) 0.72 K/uL (0.24-0.82); Monocytes % (auto) 8.4 %; Neutrophils # (auto) 5.29 K/uL (1.4-6.5); Neutrophils % (auto) 61.4 %; Platelet Count 149 K/uL (130-400); RDW Coefficient of Variation 15.2 % (11.5-14.5); RDW Standard Deviation 46.9 fL (36.4-46.3); Red Blood Count 4.81 M/uL (4.63-6.08)
[2021-09-01 06:25] LABS: Anion Gap 5 (3-11); BUN Creatinine Ratio 10.1 (10-20); Blood Urea Nitrogen 9 mg/dl (6-23); Calcium 8.1 mg/dl (8.5-10.1); Carbon Dioxide 26 mmol/L (21-32); Chloride 104 mmol/L (98-107); Est GFR (African American) 120.5 ml/min; Glucose 194 mg/dl (70-99(Fasting)); Magnesium 1.8 mg/dl (1.7-2.4); Sodium 135 mmol/L (136-145)
[2021-09-01 06:28] LABS: Troponin I High Sensitivity 22.6 pg/ml (0-20)
[2021-09-01 06:57] LABS: Estimated Average Glucose 258 mg/dl; Hemoglobin A1C 10.6 % (4.5-5.6)
--- NOTE | 2021-09-01 07:24 | Hospitalist Progress Note ---
Date of Service September 01, 2021 Assessment & Plan (1) Hemoptysis: Plan: 45yo male with PMHx significant for HFrEF (EF 20-25% in 06/2021), T2DM (A1c 12.5 in 02/2021), HTN, morbid obesity, intellectual disability, COPD, chronic respiratory failure (5L at home at all times), MARIELENA, OHS, non-ischemic cardiomyopathy s/p ICD, who presented to [facility] ED on 08/31 for pain across his lower chest and upper abdomen, with associated cough and occasional hemoptysis () HFrEF (heart failure with reduced ejection fraction): EF 20-25% per TTE done in 06/2021 at [facility]. Patient does have mild LE pitting edema and CXR shows mild pulmonary vascular congestion, but BNP is 528 which is ~baseline for this patient and he is at baseline oxygen requirements. Do not suspect acute exacerbation. - continue home Torsemide, Spironolactone, Entresto, Toprol XL, Aspirin - started lasix 40mg IV BID - daily weights, strict I/Os, 2g sodium restriction - trend BMP daily (1) Hemoptysis: Symptoms reportedly going on for several months, and have become more frequent over last several weeks. No associated fever/chills or respiratory decompensation beyond poor chronic baseline. Unclear etiology at this time. May be 2/2 to CHF pulmonary edema. Do not suspect infection (afebrile, no leukocytosis, procalcitonin negative). - CXR with chronic mild pulmonary vascular congestion - does not appear worse than previous study in 06/2021 - ordered CTA chest, patient expressed orthopnea unable to tolerate - consulted Pulmonology - agree unlikely to be infectious coagulopathy, likely 2/2 to worsening CHF, continue lasix (2) Elevated troponin: downtrending hsTroponin 20.6 --> 22.5. No chest pain, although patient does have epigastric pain. EKG with T-wave inversions in several lateral leads but no ST/T abnormalities. Suspect demand ischemia due to tachycardia. Low suspicion for ACS at this time. Now Downtrending - PRN EKG/Nitro for chest pain (3) Epigastric abdominal pain: In context of chronic GERD. Without alarm symptoms such as vomiting/hematemesis, melena or hematochezia. BMs have reportedly been formed and occur daily - likely GERD exacerbation vs constipation. - CT A/P pending - continue home Pepcid/Esomeprazole - ordered PRN Miralax (4) Hypomagnesemia: Mg 1.5 - repleted with 2g Mag sulfate. - trend (6) COPD (chronic obstructive pulmonary disease): Chronic. No exacerbation. - continue home inhalers (7) Obstructive sleep apnea: -CPAP ordered (8) Chronic respiratory failure: Chronically uses 5L/min supplemental oxygen at all times. No acute exacerbation. - continue supplemental oxygen with goal SpO2 90-92% (9) Diabetes mellitus type II, uncontrolled: A1c 12.5 in 02/2021. - check A1c - SSI + Lantus 25 units BID while hospitalized Plan FEN/GI: heart-healthy/DM2 diet with 2g sodium restriction DVT Prophylaxis: SCDs, hold chemoppx due to hemoptysis Code Status: full code Disposition: med/tele (2) Elevated troponin: (3) Epigastric abdominal pain: (4) Hypomagnesemia: (5) HFrEF (heart failure with reduced ejection fraction): (6) COPD (chronic obstructive pulmonary disease): (7) Obstructive sleep apnea: (8) Chronic respiratory failure: (9) Diabetes mellitus type II, uncontrolled: Admission and Anticipated Discharge Date Admission Date: August 31, 2021 Supervising Physician Co-Signing Physician Notes I personally examined the patient and verified all caraballo points of history and exam, discussed case, and agree with decision making with Dr Li. Breathing better than yesterday but still very bad. Notes that his BiPAP has not had a working power cord for almost a year. Also notes that whenever he has his oxygen on via concentrator he feels better than whenever he is wearing the portable tank. His normal setting is supposed to be 5.5, notes the tank only goes up to 5, but also notes that he feels markedly worse on the tank. Vitals noted, in general he is awake and alert pleasant and appears mildly dyspneic but overall no significant distress. HEENT normocephalic atraumatic mucous membranes moist. Breathing unlabored no accessory muscle use good effort lungs were very diminished really no rales, but quiet air entry to at least midway up. Skin shows no rashes no pallor or icterus. Neuro without focal deficits. Acute on chronic systolic CHFcontinue diuresis. While adherence and lifestyle are always of a concern, also it sounds like possibly he has malfunctioning portable oxygen and is not on BiPAPboth of which likely are keeping him suboptimal. Will ask case management to have his home health company evaluate. Hemoptysislikely related to his CHF, but sounds like maybe its been worse than before. Pulmonary eval is pending. Otherwise as above, pharmacologic DVT prophylaxis currently on hold due to hemoptysis. Subjective Patient seen at bedside cooperative dyspnea noted on conversation on 5L, he states he was in [place] recently for heart failure they increased his torsemide to 80mg BID, he has been compliant with his home medication recently able to state dosage and time of his toresemide and insulin. Patient states recently developed CP worsening breathing cough with blood, as well as epigastric to mid sternal pain and worsening appetite. States before that he was heading towards a restaurant. Patient states his BIPAP has not been functioning for the past year, states he feels SOB on his oxygen concentrator it may not be working properly. Patient describes significant difficulty attending appointments due to ambulation difficulties. Noted in chart also has difficulty obtaining medication. He notes worsening swelling in his legs, denies pain there. States his abd is more swollen than usual. He has been weighing himself at [facility], last weight 369.9lbs. Patient is noted to have depressed mood, is unsure why his condition is worsening and why he can't get a heart transplant. Review of Systems Review of Systems: positive cough chest pain epigastric pain lightheadedness with SOB on occasion Negative fever chills Negative headache dizziness Negative nausea vomitting diarrhea constipation Physical Exam Constitutional: + morbidly obese, cooperative and + in distress Eyes: PERRL, conjunctivae normal, anicteric sclerae ENMT: external ear and nose normal, oropharynx normal Neck: + short neck and + thick neck Respiratory: + cough and + tachypneic Auscultation: + diminished lung sounds Cardiovascular: Rate/Rhythm: regular rate and regular rhythm Extremities: + edema (b/l pitting) Chest (Breasts): Chest: normal inspection of chest Gastrointestinal (Abdomen): Inspection/Auscultation: + abdomen distended Percussion/Palpation: abdomen nontender Skin: no rashes, warm and dry Results & Data Results & Data ([facility]) Vital Signs (Past 12 Hours) Vital Signs Pulse Pulse Resp BP BP Pulse Ox Pulse Ox 09/01/21 07:09 95 09/01/21 06:01 164/115 H 09/01/21 06:01 94 H 20 95 09/01/21 06:00 97 H 22 96 09/01/21 05:30 70 27 H 97 09/01/21 05:30 157/117 H 09/01/21 05:00 78 21 98 09/01/21 05:00 150/110 H 09/01/21 04:36 81 22 99 09/01/21 04:36 151/118 H 09/01/21 04:35 93 H 22 98 09/01/21 04:30 98 09/01/21 04:30 146/117 H 09/01/21 04:17 98 09/01/21 04:17 152/105 H 09/01/21 04:00 100 09/01/21 04:00 171/129 H 09/01/21 03:30 99 09/01/21 03:30 154/97 H 09/01/21 03:17 164/118 H 09/01/21 03:17 97 09/01/21 03:00 99 09/01/21 02:30 99 09/01/21 02:01 100 09/01/21 01:30 106 H 24 99 09/01/21 01:00 94 H 26 H 97 09/01/21 02:47 107 H 25 H 99 09/01/21 00:31 102 H 20 171/120 H 98 09/01/21 00:21 98 H 26 H 182/126 H 97 09/01/21 00:00 103 H 19 08/31/21 23:30 106 H 23 08/31/21 22:38 103 H 23 97 08/31/21 22:36 108 H 21 179/129 H 98 O2 Del Method O2 Del Method O2 Flow Rate FiO2 09/01/21 07:09 BiPAP 09/01/21 06:01 09/01/21 06:01 09/01/21 06:00 09/01/21 05:30 09/01/21 05:30 09/01/21 05:00 09/01/21 05:00 09/01/21 04:36 09/01/21 04:36 09/01/21 04:35 09/01/21 04:30 09/01/21 04:30 09/01/21 04:17 09/01/21 04:17 09/01/21 04:00 09/01/21 04:00 09/01/21 03:30 09/01/21 03:30 09/01/21 03:17 09/01/21 03:17 09/01/21 03:00 09/01/21 02:30 09/01/21 02:01 09/01/21 01:30 09/01/21 01:00 09/01/21 02:47 40 09/01/21 00:31 09/01/21 00:21 09/01/21 00:00 08/31/21 23:30 08/31/21 22:38 Nasal Cannula 5 08/31/21 22:36 Nasal Cannula 5 Diagnostic Findings Laboratory Results WBC 8.60 K/ul (4.8-10.8) 09/01/21 05:51 RBC 4.81 M/uL (4.63-6.08) 09/01/21 05:51 Hgb 13.3 g/dl (14.0-18.0) L 09/01/21 05:51 POC Hgb 14.6 g/dl (14.0-18.0) 09/01/21 06:07 Hct 41.1 % (40.1-51.0) 09/01/21 05:51 POC Hct 43 % (42-52) 09/01/21 06:07 MCV 85.4 fL (80.0-100.0) 09/01/21 05:51 MCH 27.7 pg (25.0-34.0) 09/01/21 05:51 MCHC 32.4 g/dL (32.0-36.0) 09/01/21 05:51 RDW Std Deviation 46.9 fL (36.4-46.3) H 09/01/21 05:51 RDW Coeff of Zoltan 15.2 % (11.5-14.5) H 09/01/21 05:51 Plt Count 149 K/uL (130-400) 09/01/21 05:51 MPV 10.1 fL (9.4-12.4) 09/01/21 05:51 Immature Gran % (Auto) 0.5 % 09/01/21 05:51 Neut % (Auto) 61.4 % 09/01/21 05:51 Lymph % (Auto) 27.3 % 09/01/21 05:51 Kerr % (Auto) 8.4 % 09/01/21 05:51 Eos % (Auto) 1.9 % 09/01/21 05:51 Baso % (Auto) 0.5 % 09/01/21 05:51 Neut # (Auto) 5.29 K/uL (1.4-6.5) 09/01/21 05:51 Lymph # (Auto) 2.35 K/uL (1.2-3.4) 09/01/21 05:51 Kerr # (Auto) 0.72 K/uL (0.24-0.82) 09/01/21 05:51 Eos # (Auto) 0.16 K/uL (0-0.50) 09/01/21 05:51 Baso # (Auto) 0.04 K/uL (0-0.2) 09/01/21 05:51 Immature Gran # (Auto) 0.04 K/uL (0.00-0.02) H 09/01/21 05:51 PT 10.9 Seconds (9.0-12.0) 08/31/21 20:31 INR 1.0 (0.9-1.1) 08/31/21 20:31 APTT 30.4 Seconds (21.0-31.0) 08/31/21 20:31 PTT Ratio 1.1 08/31/21 20:31 D-Dimer 660 ug/L FEU (0-500) H* 08/31/21 20:31 POC pH 7.36 (7.35-7.45) 09/01/21 06:07 POC pCO2 44 mmHg (35-46) 09/01/21 06:07 POC pO2 72 mmHg (80-95) L 09/01/21 06:07 POC HCO3 25 halie/L (19-24) H 09/01/21 06:07 POC Total CO2 26 mmol/L (24-31) 09/01/21 06:07 POC Base Excess -1.0 halie/L (-9-1.8) 09/01/21 06:07 POC ABG O2 Sat 93.0 % (90-95) 09/01/21 06:07 POC Sodium 136 mmol/L (135-144) 09/01/21 06:07 Sodium 135 mmol/L (136-145) L 09/01/21 05:51 POC Potassium 4.1 mmol/L (3.3-5.0) 09/01/21 06:07 Potassium 4.0 mmol/L (3.5-5.1) 09/01/21 05:51 Chloride 104 mmol/L (98-107) 09/01/21 05:51 Carbon Dioxide 26 mmol/L (21-32) 09/01/21 05:51 Anion Gap 5 (3-11) 09/01/21 05:51 BUN 9 mg/dl (6-23) 09/01/21 05:51 Creatinine 0.89 mg/dl (0.6-1.4) 09/01/21 05:51 Est Cr Clr Drug Dosing Not Reportable 09/01/21 05:51 Est GFR ( Amer) 120.5 ml/min 09/01/21 05:51 Est GFR (Non-Af Amer) 104.0 ml/min 09/01/21 05:51 BUN/Creatinine Ratio 10.1 (10-20) 09/01/21 05:51 Glucose 194 mg/dl (70-99(Fasting)) H 09/01/21 05:51 POC Glucose 243 mg/dl (70-99) H 09/01/21 11:15 Estimat Average Glucose 258 mg/dl 09/01/21 05:51 Hemoglobin A1c 10.6 % (4.5-5.6) H 09/01/21 05:51 Calcium 8.1 mg/dl (8.5-10.1) L 09/01/21 05:51 Magnesium 1.8 mg/dl (1.7-2.4) 09/01/21 05:51 Total Bilirubin 1.0 mg/dl (0.2-1.0) 08/31/21 20:31 AST 16 U/L (13-39) 08/31/21 20:31 ALT 18 U/L (7-52) 08/31/21 20:31 Alkaline Phosphatase 82 U/L (34-104) 08/31/21 20:31 Troponin I High Sens 21.2 pg/ml (0-20) H 09/01/21 11:52 B-Natriuretic Peptide 528 pg/ml (0-100) H 08/31/21 22:39 Total Protein 7.0 gm/dl (6.0-8.3) 08/31/21 20:31 Albumin 3.7 gm/dl (3.4-5.0) 08/31/21 20: Globulin 3.3 gm/dl (2.5-4.0) 08/31/21 20: Albumin/Globulin Ratio 1.1 (0.9-2) 08/31/21 20: Procalcitonin < 0.05 ng/ml (0-0.5) 08/31/21 20: Urine Color Dark Yellow 08/31/21 22:06 Urine Appearance Clear (Clear) 08/31/21 22:06 Urine pH 5.0 (4.5-7.5) 08/31/21 22:06 Ur Specific [place] 1.030 (1.000-1.030) 08/31/21 22:06 Urine Protein 2+ (Negative) H 08/31/21 22:06 Urine Glucose (UA) 3+ (Negative) H 08/31/21 22:06 Urine Ketones Trace (Negative) H 08/31/21 22:06 Urine Blood Negative (Negative) 08/31/21 22:06 Urine Nitrite Negative (Negative) 08/31/21 22:06 Urine Bilirubin 1+ (Negative) H 08/31/21 22:06 Urine Urobilinogen Negative (Negative) 08/31/21 22:06 Ur Leukocyte Esterase Negative (Negative) 08/31/21 22:06 Urine WBC (Auto) 1-5 /hpf (0-5) 08/31/21 22:06 Urine RBC (Auto) 0-4 /hpf (0-4) 08/31/21 22:06 U Hyaline Cast (Auto) 1-5 /lpf (0-5) 08/31/21 22:06 U Epithel Cells (Auto) >30 /lpf (0-5) H 08/31/21 22:06 Urine Bacteria (Auto) Negative (Negative) 08/31/21 22:06 Nasal Screen MRSA (PCR) Negative (Negative) 09/01/21 00:00 SARS-CoV-2, RNA, NAAT NEGATIVE (NEGATIVE) 08/31/21 22:29 Impressions Chest X-Ray 09/01/21 06:20 XR chest 1V portable CLINICAL HISTORY: hypoxia, worsening respiratory status TECHNIQUE: Single frontal radiograph of the chest was obtained. Comparison: Comparison is made to chest radiograph 08/31/2021 FINDINGS: A pacemaker is seen. Cardiomegaly is noted. There is prominence and cephalization of the vasculature with Larissa B lines seen. No evidence of pleural effusion or pneumothorax. IMPRESSION: Stable cardiomegaly with moderate pulmonary edema, increased from prior exam. ACT 112: Negative or not required by law. Electronically signed by: Trey Coronel M.D. 09/01/2021 8:08 AM Resident Activity Tracking Resident Involvement: Resident Care Provided Care Provided: Adult Hospital Medicine (1) Diabetes mellitus type II, uncontrolled Glycemic state: with hyperglycemia Qualified Code(s): E11.65 - Type 2 diabetes mellitus with hyperglycemia (2) COPD (chronic obstructive pulmonary disease) COPD type: unspecified COPD Qualified Code(s): J44.9 - Chronic obstructive pulmonary disease, unspecified
--- NOTE | 2021-09-01 07:59 | XRay Report ---
XR chest 1V portable HISTORY: Dyspnea COMPARISON: Chest 06/16/2021. FINDINGS: No pneumothorax. Left-sided single lead pacemaker. The cardiac silhouette remains moderatel y enlarged. There is diffuse interstitial/vascular thickening consistent with mild pulmonary edema. T here are trace bilateral pleural effusions. Patchy bibasilar densities are noted. IMPRESSION: 1. Cardiomegaly with mild interstitial pulmonary edema and trace bilateral pleural effusions. 2. Patchy bibasilar densities have improved and may represent a component of the pulmonary edema or a resolving pneumonitis. ACT 112: Negative or not required by law. Electronically signed by: Andrea Bear M.D. 09/01/2021 7:57 AM
--- NOTE | 2021-09-01 08:10 | XRay Report ---
XR chest 1V portable CLINICAL HISTORY: hypoxia, worsening respiratory status TECHNIQUE: Single frontal radiograph of the chest was obtained. Comparison: Comparison is made to chest radiograph 08/31/2021 FINDINGS: A pacemaker is seen. Cardiomegaly is noted. There is prominence and cephalization of the vasculature with Larissa B lines seen. No evidence of pleural effusion or pneumothorax. IMPRESSION: Stable cardiomegaly with moderate pulmonary edema, increased from prior exam. ACT 112: Negative or not required by law. Electronically signed by: Trey Coronel M.D. 09/01/2021 8:08 AM
[2021-09-01] MEDS ORDERED: LANTUS PER UNIT CHARGE SQ SCH (09:00)
[2021-09-01] MEDS ORDERED: TORSEMIDE 20 MG TAB PO SCH (09:00)
[2021-09-01] MEDS: INSULIN ASPART PER UNIT SC SCH ×5 (09:14→21:30)
[2021-09-01] MEDS: CHOLECALCIFEROL 1,000 UNITS 25 MCG TAB PO SCH ×2 (10:23→20:56)
[2021-09-01] MEDS: PANTOprazole 40 MG TAB PO SCH ×2 (10:23→20:53)
[2021-09-01] MEDS: METOPROLOL SUCC 50MG EXT REL TAB PO SCH ×2 (10:24→20:55)
[2021-09-01] MEDS: VALSARTAN/SACUBITRIL 103/97MG TAB PO SCH ×2 (10:24→20:55)
[2021-09-01] MEDS: FAMOTIDINE 20 MG TAB PO SCH (10:24)
[2021-09-01] MEDS: SPIRONOLACTONE 25 MG TAB PO SCH (10:24)
[2021-09-01] MEDS: MAGNESIUM OXIDE 400 MG TAB PO SCH (10:24)
[2021-09-01] MEDS ORDERED: FUROSEMIDE 40 MG/4 ML VIAL IV ONE ×2 (11:40→18:42)
[2021-09-01 11:53] LABS: iSTAT Hematocrit 43 % (42-52); iSTAT Hemoglobin 14.6 g/dl (14.0-18.0); iSTAT Potassium 4.1 mmol/L (3.3-5.0); iSTAT Sodium 136 mmol/L (135-144)
[2021-09-01 11:54] LABS: iSTAT Arterial Blood Gas HCO3 25 meg/L (19-24); iSTAT Arterial Blood Gas pCO2 44 mmHg (35-46); iSTAT Arterial Blood Gas pH 7.36 (7.35-7.45); iSTAT Arterial Blood Gas pO2 72 mmHg (80-95); iSTAT Carbon Dioxide 26 mmol/L (24-31)
[2021-09-01] MEDS: FLUTICASONE/VILANTEROL 200/25MCG 14 PUFFS/INHALER INH SCH (12:01)
--- NOTE | 2021-09-01 15:05 | Billing Data ---
Date of Service September 01, 2021 Coding Level of Care Code 00238 Inpt Consult Level 4
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
[2021-09-01] MEDS ORDERED: FUROSEMIDE 40 MG/4 ML VIAL IV SCH (17:00)
--- NOTE | 2021-09-01 17:58 | Billing Data ---
Date of Service September 01, 2021 Coding Level of Care Code 01787 Subseq Hosp Care Lvl 3
[2021-09-01] MEDS ORDERED: HYDROmorphone INJ 0.5 MG/0.5 ML SYR IV STA (19:39)
[2021-09-01] MEDS ORDERED: SPIRONOLACTONE 25 MG TAB PO SCH (21:00)
[2021-09-01] MEDS: LANTUS PER UNIT CHARGE SQ SCH (21:43)
--- NOTE | 2021-09-01 21:43 | Billing Data ---
Date of Service September 01, 2021 Coding Level of Care Code 58897 Initial Inpt Care Lvl 3
--- NOTE | 2021-09-01 21:54 | Electrocardiogram Report ---
Test Reason : Blood Pressure : / mmHG Vent. Rate : 108 BPM Atrial Rate : 108 BPM P-R Int : 156 ms QRS Dur : 116 ms QT Int : 374 ms P-R-T Axes : 029 -44 097 degrees QTc Int : 501 ms Poor data quality, interpretation may be adversely affected Sinus tachycardia Possible Left atrial enlargement Left axis deviation T wave abnormality, consider lateral ischemia Abnormal ECG When compared with ECG of 16-JUN-2021 13:13, No significant change was found Confirmed by Abraham Rosen ([id number]) on 09/01/2021 9:53:45 PM Referred By: REFERRED SELF Confirmed By:Abraham Rosen
--- NOTE | 2021-09-01 22:52 | Electrocardiogram Report ---
Test Reason : Blood Pressure : / mmHG Vent. Rate : 102 BPM Atrial Rate : 102 BPM P-R Int : 156 ms QRS Dur : 114 ms QT Int : 392 ms P-R-T Axes : 041 -46 104 degrees QTc Int : 510 ms Poor data quality, interpretation may be adversely affected Sinus tachycardia Possible Left atrial enlargement Left axis deviation Incomplete left bundle block Prolonged QT Abnormal ECG When compared with ECG of 01-SEP-2021 05:58, No significant change was found Confirmed by Abraham Rosen ([id number] on 09/01/2021 10:51:34 PM Referred By: REFERRED SELF Confirmed By:Abraham Rosen
[2021-09-02 06:41] LABS: Hematocrit (blood only) 44.7 % (40.1-51.0); Hemoglobin 14.8 g/dl (14.0-18.0); Mean Corpuscular Hemoglobin 27.8 pg (25.0-34.0); Mean Corpuscular Hgb Conc 33.1 g/dL (32.0-36.0); Mean Corpuscular Volume 83.9 fL (80.0-100.0); Platelet Count 152 K/uL (130-400); RDW Coefficient of Variation 14.9 % (11.5-14.5); RDW Standard Deviation 44.9 fL (36.4-46.3); Red Blood Count 5.33 M/uL (4.63-6.08); White Blood Count 9.24 K/ul (4.8-10.8)
--- NOTE | 2021-09-02 07:13 | Hospitalist Progress Note ---
Date of Service September 02, 2021 Assessment & Plan (1) Hemoptysis: Plan: 45yo male with PMHx significant for HFrEF (EF 20-25% in 06/2021), T2DM (A1c 12.5 in 02/2021), HTN, morbid obesity, intellectual disability, COPD, chronic respiratory failure (5L at home at all times), MARIELENA, OHS, non-ischemic cardiomyopathy s/p ICD, who presented to [facility] ED on 08/31 for pain across his lower chest and upper abdomen, with associated cough and occasional hemoptysis () HFrEF (heart failure with reduced ejection fraction): EF 20-25% per TTE done in 06/2021 at [facility]. Patient does have mild LE pitting edema and CXR shows mild pulmonary vascular congestion, but BNP is 528 which is ~baseline for this patient and he is at baseline oxygen requirements. Do not suspect acute exacerbation. - continue home Torsemide, Spironolactone, Entresto, Toprol XL, Aspirin - started lasix 40mg IV BID - daily weights, strict I/Os, 2g sodium restriction - trend BMP daily (1) Hemoptysis: Symptoms reportedly going on for several months, and have become more frequent over last several weeks. No associated fever/chills or respiratory decompensation beyond poor chronic baseline. Unclear etiology at this time. May be 2/2 to CHF pulmonary edema. Do not suspect infection (afebrile, no leukocytosis, procalcitonin negative). - CXR with chronic mild pulmonary vascular congestion - does not appear worse than previous study in 06/2021 - ordered CTA chest, patient expressed orthopnea unable to tolerate - consulted Pulmonology - agree unlikely to be infectious coagulopathy, likely 2/2 to worsening CHF, continue lasix (2) Elevated troponin: downtrending hsTroponin 20.6 --> 22.5. No chest pain, although patient does have epigastric pain. EKG with T-wave inversions in several lateral leads but no ST/T abnormalities. Suspect demand ischemia due to tachycardia. Low suspicion for ACS at this time. Now Downtrending - PRN EKG/Nitro for chest pain (3) Epigastric abdominal pain: In context of chronic GERD. Without alarm symptoms such as vomiting/hematemesis, melena or hematochezia. BMs have reportedly been formed and occur daily - likely GERD exacerbation vs constipation. - CT A/P pending - continue home Pepcid/Esomeprazole - ordered PRN Miralax (4) Hypomagnesemia: Mg 1.5 - repleted with 2g Mag sulfate. - trend (6) COPD (chronic obstructive pulmonary disease): Chronic. No exacerbation. - continue home inhalers (7) Obstructive sleep apnea: -CPAP ordered (8) Chronic respiratory failure: Chronically uses 5L/min supplemental oxygen at all times. No acute exacerbation. - continue supplemental oxygen with goal SpO2 90-92% (9) Diabetes mellitus type II, uncontrolled: A1c 12.5 in 02/2021. - check A1c - SSI + Lantus 25 units BID while hospitalized Plan FEN/GI: heart-healthy/DM2 diet with 2g sodium restriction DVT Prophylaxis: SCDs, hold chemoppx due to hemoptysis Code Status: full code Disposition: med/tele (2) Elevated troponin: (3) Epigastric abdominal pain: (4) Hypomagnesemia: (5) HFrEF (heart failure with reduced ejection fraction): (6) COPD (chronic obstructive pulmonary disease): (7) Obstructive sleep apnea: (8) Chronic respiratory failure: (9) Diabetes mellitus type II, uncontrolled: Admission and Anticipated Discharge Date Admission Date: August 31, 2021 Results & Data Results & Data ([facility]) Vital Signs (Past 12 Hours) Vital Signs Temp Pulse Pulse Resp BP Pulse Ox O2 Del Method 09/02/21 03:45 93 H 14 94 09/02/21 03:24 36.7 C 72 18 119/82 100 BiPAP 09/02/21 01:10 98 H 09/01/21 20:45 Room Air 09/01/21 23:36 36.6 C 74 18 126/78 96 Nasal Cannula 09/01/21 19:50 36.5 C 93 H 20 136/94 98 Nasal Cannula O2 Flow Rate FiO2 09/02/21 03:45 40 09/02/21 03:24 09/02/21 01:10 09/01/21 20:45 5 09/01/21 23:36 4 09/01/21 19:50 4 (1) COPD (chronic obstructive pulmonary disease) COPD type: unspecified COPD Qualified Code(s): J44.9 - Chronic obstructive pulmonary disease, unspecified (2) Diabetes mellitus type II, uncontrolled Glycemic state: with hyperglycemia Qualified Code(s): E11.65 - Type 2 diabetes mellitus with hyperglycemia
[2021-09-02 07:16] LABS: BUN Creatinine Ratio 13.8 (10-20); Calcium 8.5 mg/dl (8.5-10.1); Creatinine Clr Calc Pharmacy 130.1 ml/min; Est GFR (African American) 95.2 ml/min; Est GFR (Non-African American) 82.1 ml/min; Magnesium 1.7 mg/dl (1.7-2.4); Potassium 3.8 mmol/L (3.5-5.1)
[2021-09-02] MEDS: INSULIN ASPART PER UNIT SC SCH ×3 (08:23→16:46)
[2021-09-02] MEDS: LANTUS PER UNIT CHARGE SQ SCH (08:24)
[2021-09-02] MEDS: FLUTICASONE/VILANTEROL 200/25MCG 14 PUFFS/INHALER INH SCH (08:24)
[2021-09-02] MEDS: CHOLECALCIFEROL 1,000 UNITS 25 MCG TAB PO SCH (08:24)
[2021-09-02] MEDS: PANTOprazole 40 MG TAB PO SCH (08:25)
[2021-09-02] MEDS: METOPROLOL SUCC 50MG EXT REL TAB PO SCH (08:25)
[2021-09-02] MEDS: FUROSEMIDE 40 MG/4 ML VIAL IV SCH ×2 (08:25→16:32)
[2021-09-02] MEDS: FAMOTIDINE 20 MG TAB PO SCH (08:25)
[2021-09-02] MEDS: VALSARTAN/SACUBITRIL 103/97MG TAB PO SCH (08:25)
[2021-09-02] MEDS: SPIRONOLACTONE 25 MG TAB PO SCH (08:26)
[2021-09-02] MEDS: MAGNESIUM OXIDE 400 MG TAB PO SCH (08:29)
--- NOTE | 2021-09-02 16:26 | Communication Note ---
Date of Service: September 02, 2021 By CMS guidelines, a determination that the admission or continued stay is not medically necessary has been made by a member of the UR committee and a physi arben for this hospital stay, therefore a Code 44 will be completed and the Inpatient admission will be changed to outpatient.
--- NOTE | 2021-09-02 16:27 | Discharge Summary ---
Date of Service September 02, 2021 Admission HPI Per Admitting Provider Alok Huff is a 45yo male with PMHx significant for HFrEF (EF 20-25% in 06/2021), T2DM (A1c 12.5 in 02/2021), HTN, morbid obesity, intellectual disability, COPD, chronic respiratory failure (5L at home at all times), MARIELENA, OHS, non-ischemic cardiomyopathy s/p ICD, who presented to [facility] ED on 08/31 for pain across his lower chest and upper abdomen, with associated cough and occasional hemoptysis. Patient reports that he was recently admitted to [facility] for ~1 week for acute on chronic HFrEF - he reportedly had diuretic regimen increased and was discharged home several weeks ago. Since discharge the patient reports generalized weakness/fatigue and cough productive of blood. Reports that he can will often cough up "half a cup" of blood. These symptoms have been occurring daily and then last night patient started to have epigastric abdominal pain, with associated decreased appetite. Patient denies fever/chills. Denies nausea/vomiting or hematemesis. Denies diarrhea, constipation, melena or hematochezia. On further questioning the patient does admit to coughing up blood "from time to time" over the last several months. Patient does not smoke or drink. He is wheelchair-dependent. In the ED the patient was hypertensive to 170s/100s and tachycardic in 100s- 110s. Required 5L/min nasal cannula. Labs significant for d-dimer 660, Mg 1.5, BSG 254. COVID-19 negative. CXR with mild pulmonary vascular congestion - appears similar to previous study in 06/2021. BNP 528 (~baseline). hsTroponin 20.6 --> 22.5. No chest pain. EKG with T-wave inversions in several lateral leads but no ST/T abnormalities. Admission Exam Per Admitting Provider General: A&Ox3. NAD. Cooperative. Morbidly obese. HEENT: Atraumatic, normocephalic. Pulm: Decreased aeration bilaterally but without wheezes/crackles. Symmetrical chest rise. No increase work of breathing. No respiratory distress. Cardiac: RRR, -mrg. Radial pulses intact and symmetrical. 1+ pitting edema to shins bilaterally. Abdominal: soft, protuberant but non-distended, moderate epigastric tenderness without guarding or rebound, BS x 4 Skin: warm, dry, no rash Principal Diagnosis Acute on Chronic Heart Failure Discharge Exam Constitutional + morbidly obese, cooperative and comfortable Eyes PERRL, conjunctivae normal, anicteric sclerae ENMT external ear and nose normal, oropharynx normal Neck + short neck and + thick neck Respiratory normal respiratory effort; no cough Auscultation: lungs clear to auscultation bilaterally Cardiovascular Rate/Rhythm: regular rate and regular rhythm Extremities: + edema (b/l LE) Chest (Breasts) Chest: normal inspection of chest Gastrointestinal (Abdomen) normal bowel sounds, soft, nontender, no hepatosplenomegaly Inspection/Auscultation: + abdomen distended Skin no rashes, warm and dry Discharge Data Allergies Allergy/AdvReac Type Severity Reaction Status Date / Time ceftriaxone Allergy Severe SHORTNESS Verified 08/31/21 22:13 OF BREATH lidocaine Allergy Severe SHORTNESS Verified 08/31/21 22:13 OF BREATH, diaphoretic, hives procaine Allergy Severe SHORTNESS Verified 08/31/21 22:13 OF BREATH, diaphoretic, hives amoxicillin Allergy Intermediate HIVES/FACIAL Verified 08/31/21 22:13 SWELLING clavulanic acid Allergy Intermediate HIVES/FACIAL Verified 08/31/21 22:13 SWELLING lisinopril Allergy Intermediate HIVES Verified 08/31/21 22:13 shellfish derived Allergy Unknown Verified 08/31/21 22:13 acetaminophen AdvReac Mild NAUSEA Verified 08/31/21 22:13 albuterol AdvReac Mild proair Verified 08/31/21 22:13 "trouble taking breaths" Fish Containing Products AdvReac Unknown Unknown Verified 08/31/21 22:13 Consultations 08/31/21 22:36 ED Decision to Admit Stat 09/01/21 00:46 Consult Pulmonology Routine Diabetes Follow up Diabetes Follow-up Needed for HgbA1c >9% Hospital Course (1) Hemoptysis: 45yo male with PMHx significant for HFrEF (EF 20-25% in 06/2021), T2DM (A1c 12.5 in 02/2021), HTN, morbid obesity, intellectual disability, COPD, chronic respiratory failure (5L at home at all times), MARIELENA, OHS, non-ischemic cardiomyopathy s/p ICD, who presented to [facility] ED on 08/31 for pain across his lower chest and upper abdomen, with associated cough and occasional hemoptysis -Patient to take Torsemide 80mg in morning and 40mg at night for 1 week and see his PCP for evaluation of his fluid status, recheck BMP () Acute on Chronic HFrEF (heart failure with reduced ejection fraction): EF 20-25% per TTE done in 06/2021 at [facility]. Patient does have mild LE pitting edema and CXR shows mild pulmonary vascular congestion, but BNP is 528 which is ~baseline for this patient and he is at baseline oxygen requirements. Do not suspect acute exacerbation. Continue home Spironolactone, Entresto, Toprol XL, Aspirin. Held Torsemide, gave IV lasix 80mg BID. Patient diuresed 3kg while in hospital. Patient states his breathing, cough, and abd pain have resolved, insists on going home, understands he still has further to diurese. Patient to take toresemide 80mg in morning and 40mg in evening for 1 week and follow up with PCP. PAtient understands if his symptoms return he should come to the hospital. (1) Hemoptysis: - resolved Symptoms reportedly going on for several months, and have become more frequent over last several weeks. No associated fever/chills or respiratory decompensation beyond poor chronic baseline. Unclear etiology at this time. May be 2/2 to CHF pulmonary edema. Do not suspect infection (afebrile, no leukocytosis, procalcitonin negative). CXR with chronic mild pulmonary vascular congestion - does not appear worse than previous study in 06/2021. Consulted Pulmonology - agree unlikely to be infectious coagulopathy, likely 2/2 to worsening CHF, continue diuresis (2) Elevated troponin: downtrending hsTroponin 20.6 --> 22.5. No chest pain, although patient does have epigastric pain. EKG with T-wave inversions in several lateral leads but no ST/T abnormalities. Suspect demand ischemia due to tachycardia. Low suspicion for ACS at this time. Now Downtrending (3) Epigastric abdominal pain: - resolved In context of chronic GERD. Without alarm symptoms such as vomiting/hematemesis, melena or hematochezia. BMs have reportedly been formed and occur daily - likely GERD exacerbation vs constipation vs acute on chronic CHF. Continue home Pepcid/Esomeprazole. Resolved with diuresis (4) Hypomagnesemia: - repleted Mg 1.5 - repleted with 2g Mag sulfate. (6) COPD (chronic obstructive pulmonary disease): Chronic. No exacerbation. Continue home inhalers (7) Obstructive sleep apnea: Patient has not used his home BIPAP for 1 year now, says the cord broke he is unable to pay for replacement working with insurance currently. BIPAP used in hospital. (8) Chronic respiratory failure: Chronically uses 5L/min supplemental oxygen at all times. No acute exacerbation. (9) Diabetes mellitus type II, uncontrolled: A1c 12.5 in 02/2021. May continue home medication (2) Elevated troponin: (3) Epigastric abdominal pain: (4) Hypomagnesemia: (5) HFrEF (heart failure with reduced ejection fraction): (6) COPD (chronic obstructive pulmonary disease): (7) Obstructive sleep apnea: (8) Chronic respiratory failure: (9) Diabetes mellitus type II, uncontrolled: Total Time Total Time Spent Total Time Spent (In Minutes): see attending attestation Discharge Plan Discharge Items Patient Disposition: Home - Self-Care Reason For Visit: HEMOPTYSIS, ABD PAIN Discharge Diagnosis: Acute on Chronic Heart Failure Activity: Per Instructions section Non-emergency contact: Primary Care Provider Call non-emergency contact if: you have any medication questions, your symptoms worsen, your pain is not controlled and you have a fever Follow-up/Referrals: Richa Burr CRNP [Primary Care Provider] - Diet: Carb Consistent or DM2 and Heart Healthy Addtl Attending Provider Instructions: You were admitted to the hospital for worsening Heart Failure. You have accumulated too much fluid in your body, that it backed up into your lungs and abdomen, making you cough more and giving you abdominal pain. We treated you with water pills to pull off some of that fluid. At this time we have removed enough fluid to resolve your coughing and abdominal pain, however you still have a large amount of extra fluid in your body. Please take your Toresemide 80mg in the morning, and 40mg at night to continue to remove more water. Too much water pills will dry out your kidney, so you need to follow up with you PCP appointment on 09/06 to recheck your bloodwork. During this time we recommend you limit your water intake to 2 Liters, or 4 bottles of water per day. Please do not eat take out during this time, as the extra salt in take out will increase the extra fluid in your body. We recommend you also avoid adding extra salt to your meals throughout the day. Please continue to weight yourself at home so you can keep track of the amount of water in your body. A discharge summary will be sent to your primary care physician to ensure continuity of care. Please bring this discharge summary with you to your next office appointment so that your provider can review it at that time. Follow-up appointments: Make a follow-up appointment with your PCP within the next week. It is very important that you follow up with them shortly after discharge from the hospital. Keep all your follow-up appointments as already scheduled. If you cannot make an appointment, notify your provider. Medications: Your medication list has been reviewed and reconciled upon discharge to ensure accuracy and continuity of care. An updated list of all your medications is included with your hospital discharge paperwork. Please review this list closely, and make note of any changes. * We have adjusted your Toresemide to 80mg in the morning, and 40mg at night. Please use this dosage for 1 week and follow up with your PCP. Take your medications as instructed; do not skip a dose of your medicines. Make sure all of your doctors know every medicine you are taking (including [id number]-sacnxbp medicines, vitamins, and supplements). Call your primary care provider before taking any new medicines (including nfdo-krn-juiskul medicines, vitamins, and supplements), because some of these may interact with your current medications, or may make your symptoms worse. Tell your primary care provider if you cannot afford your medications. CONTACT YOUR PRIMARY CARE PROVIDER if you experience any of the following: Difficulty breathing, fever, chills Persistant nausea, vomitting, abdominal pain Difficulty following your treatment plan, or difficulty taking medications CALL 911 OR GO TO THE EMERGENCY DEPARTMENT if you experience any of the following: Sudden, severe abdominal pain or nausea/vomiting Severe chest pain, or chest pain that radiates (moves) to your jaw or arm Sudden, severe shortness of breath or difficulty breathing Thank you for allowing us to participate in your care. Pending Studies at Discharge: No Stand-Alone Forms: My [facility], Smoking Cessation Medications and DC Order Prescriptions: Continued budesonide-formoterol [Symbicort] 160-4.5 mcg/actuation HFA aerosol inhaler 2 inh inhalation BID Qty: 10.2 2RF Rx Instructions: 2 puffs twice per day. Rinse mouth after each use albuterol sulfate 90 mcg/actuation HFA aerosol inhaler 1 inh inhalation QID Qty: 8.5 2RF dulaglutide 3 mg/0.5 mL pen injector 3 mg SUBCUT WK Qty: 2 5RF Rx Instructions: To be taken weekly on Sunday Entresto 97-103 mg tablet 1 tab PO BID Qty: 60 5RF metoprolol succinate 100 mg tablet extended release 24 hr 100 mg PO BID Qty: 60 5RF albuterol sulfate 2.5 mg /3 mL (0.083 %) solution for nebulization 2.5 mg inhalation Q6H Qty: 15 2RF Rx Instructions: Use every 6 hours as needed with nebulizer Humalog Mix 50-50 KwikPen 100 unit/mL (50-50) insulin pen 40 unit subcut BID 30 Days Qty: 24 5RF Rx Instructions: 40 units inj twice per day. nitroglycerin [Nitrostat] 0.4 mg tablet, sublingual 0.4 mg sublingual UD PRN (Reason: Chest Pain) cholecalciferol (vitamin D3) [Vitamin D3] 50 mcg (2,000 unit) Tablet 100 mcg PO BID aspirin [Neisha Low Dose Aspirin] 81 mg tablet,delayed release (DR/EC) 81 mg PO QAM magnesium oxide 400 mg (241.3 mg magnesium) tablet 400 mg PO QAM famotidine 20 mg tablet 20 mg PO QAM esomeprazole magnesium 40 mg capsule,delayed release(DR/EC) 40 mg PO BID spironolactone [Aldactone] 25 mg tablet 75 mg PO UD Rx Instructions: 2 in the morning and 1 tablet at night Changed torsemide 20 mg tablet See Rx Instructions .ROUTE .COMPLEX 7 Days Qty: 42 0RF Rx Instructions: Please take 80mg (4 tabs) in the morning, and 40mg (2 tabs) at night for the next week, then check with your PCP for further dosing instructions Discharge Orders: Discharge Order (Routine); Ordered 09/02/21 Ordered By: Gregoria Talamantes/Other Patient Handouts: Low-Salt Choices, Coping with Heart Failure, Eating Heart-Healthy Foods Admission Data Admit Date/Time: 08/31/21 23:52 Attending Provider: Ananth Soto Admit Provider: Lenny Amador Primary Care Provider: Richa Burr Other Providers: Noé Jaquez ; Prince Hurley Other Interventions: Discharge Summary Assessment (RN) Last Done: 09/02/21 16:59 Supervising Physician Co-Signing Physician Notes I personally examined the patient and verified all caraballo points of history and exam, discussed case, and agree with decision making with Dr Li. Breathing feels better. Breathing feels more or less back to baseline, oxygen requirement back to baseline. Notes that he really wants to go home. Discussed that he probably still has significant amount of volume overload that it would be of benefit to remove prior to discharge, especially given how brittle his situation usually is. Discussed that while he would probably be safe at home right now, he would be an extremely high probability of readmission in very short order. In spite of that he decided to go anyway. Vitals noted, in general he is awake and alert pleasant and appears mildly dyspneic but overall no significant distress. HEENT normocephalic atraumatic mucous membranes moist. Breathing unlabored no accessory muscle use good effort lungs were very diminished really no rales, quiet air entry now bibasilar probably by about a third of the way up its clear. Acute on chronic systolic CHFcontinue diuresis. While adherence and lifestyle are always of a concern, also it sounds like possibly he has malfunctioning portable oxygen and is not on BiPAPboth of which likely are keeping him suboptimal. Case management looking into options, but it sounds like some things may be out of our control. Wants to go homesee above, definitely not with medical advice, high probability of readmission. Med management and close follow-up. Hemoptysislikely related to his CHF, resolved. Outpatient follow-up Otherwise as above, pharmacologic DVT prophylaxis was held due to hemoptysis Resident Activity Tracking Resident Involvement: Resident Care Provided Care Provided: Adult Hospital Medicine
--- NOTE | 2021-09-02 18:11 | Billing Data ---
Date of Service September 02, 2021 Coding Level of Care Code D/C DAY MANAGEMENT <30 MINS
== END 2021-09-02 17:49 | disposition home or self-care (01) | DRG 291 ==
LOC: ED 18:52 → EDINP 23:52 → SUATTDRO 23:52 → 2E 09-01 00:57

== ENCOUNTER 2021-10-30 22:30 | Inpatient (IN) ==
[2021-10-30 23:12] LABS: iSTAT Creatinine 1.3 mg/dl (0.6-1.3); iSTAT Ionized Calcium 1.14 mmol/l (1.12-1.32)
[2021-10-30 23:14] LABS: Basophils # (auto) 0.04 K/uL (0-0.2); Basophils % (auto) 0.4 %; Eosinophils # (auto) 0.12 K/uL (0-0.50); Eosinophils % (auto) 1.2 %; Hematocrit (blood only) 48.7 % (40.1-51.0); Hemoglobin 16.1 g/dl (14.0-18.0); Immature Granulocytes # (auto) 0.08 K/uL (0.00-0.02); Immature Granulocytes % (auto) 0.8 %; Lymphocytes # (auto) 2.71 K/uL (1.2-3.4); Lymphocytes % (auto) 26.8 %; Mean Corpuscular Hemoglobin 27.9 pg (25.0-34.0); Mean Corpuscular Hgb Conc 33.1 g/dL (32.0-36.0); Mean Corpuscular Volume 84.4 fL (80.0-100.0); Mean Platelet Volume 10.7 fL (9.4-12.4); Monocytes # (auto) 0.93 K/uL (0.24-0.82); Monocytes % (auto) 9.2 %; Neutrophils # (auto) 6.24 K/uL (1.4-6.5); Neutrophils % (auto) 61.6 %; Platelet Count 193 K/uL (130-400); RDW Coefficient of Variation 14.9 % (11.5-14.5); RDW Standard Deviation 45.4 fL (36.4-46.3); Red Blood Count 5.77 M/uL (4.63-6.08); White Blood Count 10.12 K/ul (4.8-10.8)
[2021-10-30] MEDS ORDERED: FUROSEMIDE 40 MG/4 ML VIAL IV ONE ×2 (23:23→23:26)
[2021-10-30 23:25] LABS: Partial Thromboplastin Ratio 1.1; Partial Thromboplastin Time 29.6 Seconds (21.0-31.0); Prothrombin Time 10.6 Seconds (9.0-12.0)
[2021-10-30 23:52] LABS: Alanine Aminotransferase 20 U/L (7-52); Albumin Globulin Ratio 1.1 (0.9-2); Alkaline Phosphatase 102 U/L (34-104); Anion Gap 9 (3-11); BUN Creatinine Ratio 7.9 (10-20); Bilirubin,Total 0.7 mg/dl (0.2-1.0); Blood Urea Nitrogen 11 mg/dl (6-23); Calcium 8.6 mg/dl (8.5-10.1); Carbon Dioxide 23 mmol/L (21-32); Chloride 100 mmol/L (98-107); Est GFR (African American) 70.3 ml/min; Est GFR (Non-African American) 60.7 ml/min; Globulin 3.5 gm/dl (2.5-4.0); Glucose 341 mg/dl (70-99(Fasting)); Sodium 132 mmol/L (136-145); Total Protein 7.5 gm/dl (6.0-8.3); Troponin I High Sensitivity 23.8 pg/ml (0-20)
[2021-10-31] MEDS ORDERED: FUROSEMIDE 40 MG/4 ML VIAL IV ONE (00:34)
[2021-10-31] MEDS ORDERED: NITROGLYCERIN 2% OINTMENT 30GM TUBE EXT ONE (00:34)
[2021-10-31 01:28] LABS: Potassium 4.3 mmol/L (3.5-5.1)
[2021-10-31] MEDS ORDERED: NITROGLYCERIN SL 0.4 MG/TAB TAB SL PRN (02:34)
[2021-10-31] MEDS ORDERED: ACETAMINOPHEN 325 MG TAB PO PRN (02:34)
[2021-10-31] MEDS ORDERED: GLUCOSE 10 TAB/TUBE PO PRN (02:34)
[2021-10-31] MEDS ORDERED: GLUCOSE 40% GEL 15 GM TUBE PO PRN (02:34)
[2021-10-31] MEDS ORDERED: DEXTROSE 50% 50 ML SYRINGE IV PRN (02:34)
[2021-10-31] MEDS ORDERED: CARBOHYDRATES FOR HYPOGLYCEMIA PO PRN (02:34)
[2021-10-31] MEDS ORDERED: GLUCAGON FOR INJ 1 MG VIAL SQ PRN (02:34)
[2021-10-31] MEDS ORDERED: ONDANSETRON INJ 2 MG/ML 2 ML VIAL IV PRN (02:34)
[2021-10-31] MEDS ORDERED: MoRPHine SULFATE 2 MG/ML CARP IV PRN (02:34)
--- NOTE | 2021-10-31 04:22 | History & Physical Report ---
Date of Service October 31, 2021 Assessment & Plan (1) Acute on chronic heart failure with reduced ejection fraction and diastolic dysfunction: Plan: Acute on chronic respiratory failure/combined systolic and diastolic heart failure/with hypoxia- The patient will be admitted to telemetry for serial cardiac enzymes, serial EKG's, cardiac rhythm monitoring and a 2-D echocardiogram with Dopplers. Chest x-ray much worse over the past 5 days, with patient not having any insight into potential etiologies Denies any changes in dietary intake or exercise or other exposures BiPAP, taper per protocol Lasix 120 mg IV in ED now then every 8 hours Continue other medications: Aspirin, mag oxide, metoprolol succinate, nitroglycerin sublingual, Entresto and spironolactone. Follow chemistry and magnesium levels Initial troponin mildly elevated at 23.8, follow serially Will need to continue to follow-up with heart failure clinic upon discharge (2) Diabetes mellitus type II, uncontrolled: Plan: Hold dulaglutide and outpatient insulin regimen Placed on Accu-Cheks before meals and at bedtime with NovoLog coverage per scale Check hemoglobin A1c (3) Elevated troponin: Plan: See above (4) NICM (nonischemic cardiomyopathy): Plan: See above (5) Acute and chronic respiratory failure with hypoxia: Plan: BiPAP for now, titrate downward as symptoms improve (6) Hypertension: Plan: Continue medications as noted (7) Acute on chronic congestive heart failure: Plan: Lasix as noted above (8) Combined systolic and diastolic heart failure: Plan: Lasix as noted above (9) COPD (chronic obstructive pulmonary disease): Plan: Duonebs every 4 hours while awake and every 2 hours when necessary. (10) Urinary bladder incontinence: Plan: Follow urine output closely (11) Lab test negative for COVID-19 virus: Admission and Anticipated Discharge Date Admission Date: October 31, 2021 History of Present Illness Chief Complaint: The patient presents to the emergency department with complaint of progressively worsening shortness of breath over the past few days. Primary Care Provider: NO PCP The patient is a 45-year-old male with a past medical history including severe COPD, combined systolic and diastolic heart failure, nonischemic cardiomyopathy, peripheral neuropathy, chronic respiratory failure, MARIELENA, AICD, hypertension, medical noncompliance, morbid obesity, intellectual disability, urinary bladder incontinence, V. tach, hemoptysis, and multiple previous admissions for similar symptoms. Upon arrival to the emergency department the patient was found to be severely hypoxic, with chest x-ray showing significantly worsening CHF compared to x-ray of 5 days previously, with moist cough and patient denying any known exacerbating factors. He was placed on BiPAP, with somewhat improved symptoms, and was given Lasix 80 mg IV by the ED. Of note, patient was COVID-19 negative in the ED, had elevated troponin of 23.8 and a glucose of 341 Allergies Allergy/AdvReac Type Severity Reaction Status Date / Time ceftriaxone Allergy Severe SHORTNESS Verified 10/14/21 13:47 OF BREATH lidocaine Allergy Severe SHORTNESS Verified 10/14/21 13:47 OF BREATH, diaphoretic, hives procaine Allergy Severe SHORTNESS Verified 10/14/21 13:47 OF BREATH, diaphoretic, hives amoxicillin Allergy Intermediate HIVES/FACIAL Verified 10/14/21 13:47 SWELLING clavulanic acid Allergy Intermediate HIVES/FACIAL Verified 10/14/21 13:47 SWELLING lisinopril Allergy Intermediate HIVES Verified 10/14/21 13:47 shellfish derived Allergy Unknown Verified 10/14/21 13:47 acetaminophen AdvReac Mild NAUSEA Verified 10/14/21 13:47 albuterol AdvReac Mild proair Verified 10/14/21 13:47 "trouble taking breaths" Fish Containing Products AdvReac Unknown Unknown Verified 10/14/21 13:47 Home Medications Medication Instructions Recorded Confirmed Type nitroglycerin 0.4 mg sublingual 0.4 mg sublingual UD PRN Chest Pain 04/24/19 10/14/21 History tablet (Nitrostat) cholecalciferol (vitamin D3) 50 100 mcg PO BID 10/04/19 10/14/21 History mcg (2,000 unit) tablet (Vitamin D3) albuterol sulfate 90 mcg/actuation 1 inh inhalation QID #8.5 grams 12/09/20 10/14/21 Rx aerosol inhaler albuterol sulfate 2.5 mg/3 mL 2.5 mg (3 mL) inhalation Q6H #15 mL 02/21/21 10/14/21 Rx (0.083 %) solution for nebulization metoprolol succinate 100 mg 100 mg PO BID #60 tabs 02/21/21 10/14/21 Rx tablet,extended release 24 hr sacubitril 97 mg-valsartan 103 mg 1 tab PO BID #60 tabs 02/21/21 10/14/21 Rx tablet (Entresto) insulin lispro protamine-lispro 40 unit (0.4 mL) subcut BID 30 03/22/21 10/14/21 Rx 100 unit/mL (50-50) subcutaneous days #24 mL pen (Humalog Mix 50-50 KwikPen) Symbicort 160 mcg-4.5 2 inh inhalation BID #10.2 grams 05/04/21 10/14/21 Rx mcg/actuation HFA aerosol inhaler (budesonide-formoterol) aspirin 81 mg tablet,delayed 81 mg PO QAM 06/16/21 10/14/21 History release (Neisha Low Dose Aspirin) famotidine 20 mg tablet 20 mg PO QAM 06/16/21 10/14/21 History magnesium oxide 400 mg (241.3 mg 400 mg PO QAM 06/16/21 10/14/21 History magnesium) tablet esomeprazole magnesium 40 mg 40 mg PO BID 08/31/21 10/14/21 History capsule,delayed release spironolactone 25 mg tablet 75 mg PO UD 08/31/21 10/14/21 History (Aldactone) dulaglutide 4.5 mg/0.5 mL 4.5 mg (0.5 mL) subcut .WEEKLY #2 10/03/21 10/14/21 Rx subcutaneous pen injector mL (Trulicity) Past Med/Surg History Medical History Bacteremia Chronic respiratory failure Dilatation of thoracic aorta Fatty liver Hearing loss of both ears Housing instability, currently housed, at risk for homelessness Hx of local infection of skin and subcutaneous tissue Iliac aneurysm Lung nodule NICM (nonischemic cardiomyopathy) Pt admitted for elective ICD. Underwent procedure without any complications monitored over night and discharged home. 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 Beliefs That Will Affect Care: None marital status: Current Living Situation: Spouse current occupational status: unemployed How many Children do You have: 0 Other Information That Helps Us Care for You: No Feels Safe at Home: Yes Safety Concerns: Feels Safe At This Time Childhood Exposure to Second-Hand Smoke: Yes Dental Care, Regularly: Yes Physical Activity Frequency: Does not Exercise Assistive Devices: BiPap, Glasses, Hearing Aid - Bilateral, Oxygen - Continuous and Walker Review of Systems Review of Systems: The patient denies chest pain, palpitations, lower extremity swelling, sore throat, fevers, chills, sweats, nausea, vomiting, diarrhea , constipation, abdominal pain, pelvic pain, blood in urine or stool, dysuria, urinary frequency or urgency, loss of consciousness, rash, abnormal bruising or bleeding, imbalance, focal or generalized weakness, numbness or tingling in arms or legs, generalized arthralgias or myalgias, back or neck pain, or night sweats. The review of systems is otherwise negative other than for that already noted above, and at least 10 systems have been reviewed. Physical Exam Physical Exam: The patient is awake, alert and oriented 3, morbidly obese, normocephalic and atraumatic, lying in bed and in moderate respiratory distress with accessory muscle use HEENT--PERRL, EOMI, mucous membranes and oropharynx dry. Neck--supple. No JVD. No bruits. Thyroid normal, trachea midline, no adenopathy. Heart--normal S1 and S2. No murmurs, rubs or gallops. Lungs--coarse breath sounds bilaterally with wheezes and rhonchi throughout. Moderate respiratory distress with accessory muscle use, improving on BiPAP Abdomen--normal bowel sounds and soft. Nontender. Nondistended. Morbidly obese Extremities--2+ bilateral pretibial pitting edema Dermatologic--normal skin turgor, normal color, no abnormal lymph nodes, no rash. Neurologic--cranial nerves II through XII grossly intact. Rheumatologic--normal range of motion. Psychiatric--normal affect. Results & Data Results & Data ([facility]) Vital Signs (Past 12 Hours) Vital Signs Temp Pulse Pulse Resp BP BP Pulse Ox 10/31/21 03:10 36.2 C L 121 H 22 147/96 H 97 10/31/21 02:46 10/31/21 02:34 10/31/21 01:45 109 H 28 H 167/129 H 90 10/31/21 01:22 114 H 32 H 168/121 H 92 10/31/21 01:09 125 H 32 H 185/136 H 90 10/31/21 00:49 170/122 H 10/31/21 00:39 198/153 H 10/31/21 00:30 131 H 32 H 93 10/30/21 23:21 118 H 33 H 209/166 H 96 10/30/21 23:03 98 10/30/21 22:38 96 10/30/21 22:38 37.1 C 133 H 30 H 206/152 H 96 Pulse Ox O2 Del Method O2 Del Method 10/31/21 03:10 BiPAP 10/31/21 02:46 BiPAP 10/31/21 02:34 96 BiPAP 10/31/21 01:45 Room Air 10/31/21 01:22 BiPAP 10/31/21 01:09 BiPAP 10/31/21 00:49 10/31/21 00:39 10/31/21 00:30 BiPAP 10/30/21 23:21 BiPAP 10/30/21 23:03 BiPAP 10/30/21 22:38 BiPAP 10/30/21 22:38 BiPAP Laboratory Results Laboratory Results WBC 10.12 K/ul (4.8-10.8) 10/30/21 22:46 RBC 5.77 M/uL (4.63-6.08) 10/30/21 22:46 Hgb 16.1 g/dl (14.0-18.0) 10/30/21 22:46 POC Hgb 18.0 g/dl (14.0-18.0) 10/30/21 22:57 Hct 48.7 % (40.1-51.0) 10/30/21 22:46 POC Hct 53 % (42-52) H 10/30/21 22:57 MCV 84.4 fL (80.0-100.0) 10/30/21 22:46 MCH 27.9 pg (25.0-34.0) 10/30/21 22:46 MCHC 33.1 g/dL (32.0-36.0) 10/30/21 22:46 RDW Std Deviation 45.4 fL (36.4-46.3) 10/30/21 22:46 RDW Coeff of Zoltan 14.9 % (11.5-14.5) H 10/30/21 22:46 Plt Count 193 K/uL (130-400) 10/30/21 22:46 MPV 10.7 fL (9.4-12.4) 10/30/21 22:46 Immature Gran % (Auto) 0.8 % 10/30/21 22:46 Neut % (Auto) 61.6 % 10/30/21 22:46 Lymph % (Auto) 26.8 % 10/30/21 22:46 [place] % (Auto) 9.2 % 10/30/21 22:46 Eos % (Auto) 1.2 % 10/30/21 22:46 Baso % (Auto) 0.4 % 10/30/21 22:46 Neut # (Auto) 6.24 K/uL (1.4-6.5) 10/30/21 22:46 Lymph # (Auto) 2.71 K/uL (1.2-3.4) 10/30/21 22:46 [place] # (Auto) 0.93 K/uL (0.24-0.82) H 10/30/21 22:46 Eos # (Auto) 0.12 K/uL (0-0.50) 10/30/21 22:46 Baso # (Auto) 0.04 K/uL (0-0.2) 10/30/21 22:46 Immature Gran # (Auto) 0.08 K/uL (0.00-0.02) H 10/30/21 22:46 PT 10.6 Seconds (9.0-12.0) 09/18/22 22:46 INR 1.0 (0.9-1.1) 10/30/21 22:46 APTT 29.6 Seconds (21.0-31.0) 10/30/21 22:46 PTT Ratio 1.1 10/30/21 22:46 POC Sodium 137 mmol/L (135-144) 10/30/21 22:57 Sodium 132 mmol/L (136-145) L 10/30/21 22:46 POC Potassium 4.0 mmol/L (3.3-5.0) 10/30/21 22:57 Potassium 4.3 mmol/L (3.5-5.1) 10/31/21 00:49 POC Chloride 101 mmol/L (101-112) 10/30/21 22:57 Chloride 100 mmol/L (98-107) 10/30/21 22:46 Carbon Dioxide 23 mmol/L (21-32) 10/30/21 22:46 POC Total CO2 24 mmol/L (24-31) 10/30/21 22:57 Anion Gap 9 (3-11) 10/30/21 22:46 POC Anion Gap 18.0 mmol/L (16-25) 10/30/21 22:57 POC BUN 12 mg/dl (7-18) 10/30/21 22:57 BUN 11 mg/dl (6-23) 10/30/21 22:46 Creatinine 1.40 mg/dl (0.6-1.4) 10/30/21 22:46 POC Creatinine 1.3 mg/dl (0.6-1.3) 10/30/21 22:57 Est Cr Clr Drug Dosing Not Reportable 10/30/21 22:46 Est GFR ( Amer) 70.3 ml/min 10/30/21 22:46 Est GFR (Non-Af Amer) 60.7 ml/min 10/30/21 22:46 BUN/Creatinine Ratio 7.9 (10-20) L 10/30/21 22:46 Glucose 341 mg/dl (70-99(Fasting)) H* 10/30/21 22:46 POC Glucose (other) 368 mg/dl (70-99) H* 10/30/21 22:57 Calcium 8.6 mg/dl (8.5-10.1) 10/30/21 22:46 POC Ioniz Calcium [place] 1.14 mmol/l (1.12-1.32) 10/30/21 22:57 Total Bilirubin 0.7 mg/dl (0.2-1.0) 10/30/21 22:46 AST 21 U/L (13-39) 10/31/21 00:49 ALT 20 U/L (7-52) 10/30/21 22:46 Alkaline Phosphatase 102 U/L (34-104) 10/30/21 22:46 Troponin I High Sens 23.8 pg/ml (0-20) H 10/30/21 22:46 Total Protein 7.5 gm/dl (6.0-8.3) 10/30/21 22:46 Albumin 4.0 gm/dl (3.4-5.0) 10/30/21 22:46 Globulin 3.5 gm/dl (2.5-4.0) 10/30/21 22:46 Albumin/Globulin Ratio 1.1 (0.9-2) 10/30/21 22:46 SARS-CoV-2 (PCR) NEGATIVE (Negative) 10/30/21 23:25 Code Status & VTE Plan Code Status Full code VTE Prophylaxis Plan VTE Prophylaxis will be ordered: Yes PG Care Time/CCT Total # of Minutes Spent Total Time Spent with Patient: Total time spent is greater than 50% in coordination of care (as documented) at patient's floor/unit and/or counseling patient: Coding Level of Care Code 67195 Initial Inpt Care Lvl 3 Diagnoses Acute on chronic heart failure with reduced ejection fraction and diastolic dysfunction I50.43 Diabetes mellitus type II, uncontrolled E11.65 Glycemic state: with hyperglycemia Elevated troponin R77.8 NICM (nonischemic cardiomyopathy) I42.8 Acute and chronic respiratory failure with hypoxia J96.21 Hypertension I10 Hypertension type: unspecified Acute on chronic congestive heart failure I50.9 Heart failure type: unspecified Combined systolic and diastolic heart failure I50.41 Heart failure chronicity: acute COPD (chronic obstructive pulmonary disease) J44.9 COPD type: unspecified COPD Urinary bladder incontinence R32 Lab test negative for COVID-19 virus Z20.822 (1) Diabetes mellitus type II, uncontrolled Glycemic state: with hyperglycemia Qualified Code(s): E11.65 - Type 2 diabetes mellitus with hyperglycemia (2) Hypertension Hypertension type: unspecified Qualified Code(s): I10 - Essential (primary) hypertension (3) Acute on chronic congestive heart failure Heart failure type: unspecified Qualified Code(s): I50.9 - Heart failure, unspecified (4) Combined systolic and diastolic heart failure Heart failure chronicity: acute Qualified Code(s): I50.41 - Acute combined systolic (congestive) and diastolic (congestive) heart failure (5) COPD (chronic obstructive pulmonary disease) COPD type: unspecified COPD Qualified Code(s): J44.9 - Chronic obstructive pulmonary disease, unspecified
[2021-10-31] MEDS: VALSARTAN/SACUBITRIL 103/97MG TAB PO SCH ×3 (04:44→20:48)
[2021-10-31] MEDS: METOPROLOL SUCC 50MG EXT REL TAB PO SCH ×3 (04:44→20:48)
[2021-10-31 05:56] LABS: Basophils # (auto) 0.03 K/uL (0-0.2); Basophils % (auto) 0.2 %; Eosinophils # (auto) 0.01 K/uL (0-0.50); Eosinophils % (auto) 0.1 %; Hematocrit (blood only) 47.5 % (40.1-51.0); Hemoglobin 15.7 g/dl (14.0-18.0); Immature Granulocytes # (auto) 0.07 K/uL (0.00-0.02); Immature Granulocytes % (auto) 0.4 %; Lymphocytes # (auto) 1.02 K/uL (1.2-3.4); Lymphocytes % (auto) 6.2 %; Mean Corpuscular Hemoglobin 27.5 pg (25.0-34.0); Mean Corpuscular Hgb Conc 33.1 g/dL (32.0-36.0); Mean Corpuscular Volume 83.3 fL (80.0-100.0); Mean Platelet Volume 10.7 fL (9.4-12.4); Monocytes % (auto) 5.4 %; Neutrophils # (auto) 14.52 K/uL (1.4-6.5); Neutrophils % (auto) 87.7 %; Platelet Count 157 K/uL (130-400); RDW Coefficient of Variation 14.8 % (11.5-14.5); RDW Standard Deviation 44.5 fL (36.4-46.3); White Blood Count 16.55 K/ul (4.8-10.8)
[2021-10-31 06:06] LABS: Prothrombin Time 10.9 Seconds (9.0-12.0)
[2021-10-31] MEDS: NITROGLYCERIN 2% OINTMENT 30GM TUBE EXT SCH ×3 (06:10→18:03)
[2021-10-31] MEDS: FUROSEMIDE 40 MG/4 ML VIAL IV SCH ×4 (06:11→22:07)
[2021-10-31 06:20] LABS: Albumin Globulin Ratio 1.1 (0.9-2); Albumin Level 3.8 gm/dl (3.4-5.0); BUN Creatinine Ratio 12.6 (10-20); Bilirubin,Total 0.9 mg/dl (0.2-1.0); Calcium 8.5 mg/dl (8.5-10.1); Creatinine Clr Calc Pharmacy 114.7 ml/min; Est GFR (African American) 79.1 ml/min; Est GFR (Non-African American) 68.3 ml/min; Globulin 3.4 gm/dl (2.5-4.0); Potassium 4.2 mmol/L (3.5-5.1); Total Protein 7.2 gm/dl (6.0-8.3)
--- NOTE | 2021-10-31 06:31 | XRay Report ---
XR chest 1V portable HISTORY: 45 years-old Male sob acute shortness of breath COMPARISON: Chest radiograph 10/24/2021, CTA chest 06/16/2021 TECHNIQUE: Portable AP view of the chest FINDINGS: Cardiac silhouette is enlarged. Pulmonary vascular congestion with interstitial coarsening. No pneumo thorax. Bibasilar consolidation with blunting of the costophrenic angles. Left subclavian pacer/AICD. Bones appear grossly intact. IMPRESSION: 1. Cardiomegaly with pulmonary edema. 2. Small pleural effusions with bibasilar consolidation. ACT 112: Negative or not required by law. The above report was generated using voice recognition software. It may contain grammatical, syntax o r spelling errors. Electronically signed by: Sony Irby M.D. 10/31/2021 6:30 AM
[2021-10-31] MEDS: INSULIN ASPART PER UNIT SC SCH ×4 (07:03→23:53)
[2021-10-31] MEDS: ALBUT/IPRATROP 3MG/0.5MG NEB 3 ML VIAL NEB SCH ×4 (07:20→20:16)
[2021-10-31] MEDS ORDERED: PHARMACY GLYCEMIC MGMT CONSULT PRN (07:58)
--- NOTE | 2021-10-31 07:58 | Medical Student Progress Note ---
Date of Service October 31, 2021 Assessment & Plan (1) Chronic respiratory failure: Plan: Continue patient on BiPAP. Make patient N.P.O. (2) CHF (congestive heart failure): Plan: Continue telemetry, assess serial troponin levels and serial EKGs. Continue Lasix 80mg q8h. Follow CMP and magnesium levels. Obtain echocardiogram and consider sending to labeling associate. Consider administering nitroglycerin if chest pain persists or worsens. Heart failure chronicity: acute on chronic Heart failure type: unspecified Qualified Code(s): I50.9 - Heart failure, unspecified (3) Hyperglycemia: Plan: Continue patient on insulin. Plan FEN: N.P.O. Code: Full Code DVT Prophylaxis: ordered Disposition: patient is to remain in hospital for telemetry and further workup of chest pain. Admission and Anticipated Discharge Date Admission Date: October 31, 2021 Home Huff is a 45 year old male patient with a complex past medical history which includes cardiac disease, CHF, and chronic respiratory failure on 5L nasal cannula who presented to the ED yesterday for worsening shortness of breath and chest pain following a previous ED visit for chest pain on 10/24/21. On 10/24 the patient had an unremarkable cardiac workup in the ED and was discharged home. Yesterday the patient was hypoxemic upon arrival to the ED. CXR showed worsening CHF compared to CXR from 10/24. The patient was started on BiPAP and given 80mg Lasix IV. The patient had an elevated troponin level, 23.8. EKG revealed sinus tachycardia with premature ventricular complexes compared to EKG on 10/24. Today the patient states he is having worsening chest tightness with worsening shortness of breath. He reports pain described as pins and needles near the apex of his heart. The patient does not describe the pain as dull or achy. The patient denies pain radiating to shoulder or jaw. Review of Systems Constitutional: no fever, no chills, no fatigue. Respiratory: +SOB, no cough, +wheezing. Cardiovascular: Additional Comments: +chest pain, no palpitations. Gastrointestinal: +abdominal pain, no nausea, no vomiting, no constipation, no diarrhea. Physical Exam Physical Exam: Physical exam difficult due to patient's habitus. Constitutional: Alert and oriented, no acute distress. Respiratory: Decreased breath sounds bilaterally. No wheezes, rhonchi, or rales. Cardiovascular: Regular rate and rhythm. No murmur, rubs, or gallops. Chest tender to palpation throughout. Capillary refill <2 seconds. NO JVD, no bruits. Bilateral nonpitting edema of lower extremities. Gastrointestinal (Abdomen): Normal bowel sounds. Tenderness to palpation RUQ. Normal to percussion. No guarding or rebound. Results & Data ([facility]) Vital Signs (Past 12 Hours) Vital Signs Temp Pulse Pulse Resp BP BP Pulse Ox 10/31/21 07:36 36.3 C L 88 18 136/62 94 10/31/21 07:22 89 27 H 96 10/31/21 07:21 89 27 H 96 10/31/21 02:33 120 H 10/31/21 02:30 109 H 28 H 97 10/31/21 00:20 10/30/21 22:35 130 H 30 H 99 10/31/21 03:10 36.2 C L 121 H 22 147/96 H 97 10/31/21 02:46 10/31/21 02:34 10/31/21 01:45 109 H 28 H 167/129 H 90 10/31/21 01:22 114 H 32 H 168/121 H 92 10/31/21 01:09 125 H 32 H 185/136 H 90 10/31/21 00:49 170/122 H 10/31/21 00:39 198/153 H 10/31/21 00:30 131 H 32 H 93 10/30/21 23:21 118 H 33 H 209/166 H 96 10/30/21 23:03 98 10/30/21 22:38 96 10/30/21 22:38 37.1 C 133 H 30 H 206/152 H 96 Pulse Ox O2 Del Method O2 Del Method FiO2 10/31/21 07:36 BiPAP 10/31/21 07:22 BiPAP 45 10/31/21 07:21 45 10/31/21 02:33 10/31/21 02:30 60 10/31/21 00:20 70 10/30/21 22:35 50 10/31/21 03:10 BiPAP 10/31/21 02:46 BiPAP 10/31/21 02:34 96 BiPAP 10/31/21 01:45 Room Air 10/31/21 01:22 BiPAP 10/31/21 01:09 BiPAP 10/31/21 00:49 10/31/21 00:39 10/31/21 00:30 BiPAP 10/30/21 23:21 BiPAP 10/30/21 23:03 BiPAP 10/30/21 22:38 BiPAP 10/30/21 22:38 BiPAP Laboratory Results Cardiac Enzymes 10/30/21 10/31/21 10/31/21 Range/Units 22:46 00:49 00:51 AST TNP 21 Troponin I High Sens 23.8 H Cancelled (0-20) pg/ml 10/31/21 10/31/21 Range/Units 05:16 05:16 AST 17 Troponin I High Sens 28.7 H (0-20) pg/ml Coagulation 10/30/21 10/31/21 Range/Units 22:46 05:16 PT 10.6 10.9 (9.0-12.0) Seconds APTT 29.6 (21.0-31.0) Seconds CBC 10/30/21 10/31/21 Range/Units 22:46 05:16 WBC 10.12 16.55 H (4.8-10.8) K/ul RBC 5.77 5.70 (4.63-6.08) M/uL Hgb 16.1 15.7 (14.0-18.0) g/dl Hct 48.7 47.5 (40.1-51.0) % Plt Count 193 157 (130-400) K/uL Neut # (Auto) 6.24 14.52 H (1.4-6.5) K/uL Lymph # (Auto) 2.71 1.02 L (1.2-3.4) K/uL [place] # (Auto) 0.93 H 0.90 H (0.24-0.82) K/uL Eos # (Auto) 0.12 0.01 (0-0.50) K/uL Baso # (Auto) 0.04 0.03 (0-0.2) K/uL Comprehensive Metabolic Panel 10/30/21 10/31/21 10/31/21 Range/Units 22:46 00:49 05:16 Sodium 132 L 134 L (136-145) mmol/L Potassium TNP 4.3 4.2 Chloride 100 100 (98-107) mmol/L Carbon Dioxide 23 24 (21-32) mmol/L BUN 11 16 (6-23) mg/dl Creatinine 1.40 1.27 (0.6-1.4) mg/dl Glucose 341 H* 406 H* (70-99(Fasting)) mg/dl Calcium 8.6 8.5 (8.5-10.1) mg/dl AST TNP 21 17 ALT 20 20 (7-52) U/L Alkaline Phosphatase 102 96 (34-104) U/L Total Protein 7.5 7.2 (6.0-8.3) gm/dl Albumin 4.0 3.8 (3.4-5.0) gm/dl Intake and Output 10/31/21 10/31/21 10/31/21 06:59 14:59 22:59 Intake Total 100 / 100 Output Total 2700 / 2700 1300 / 1300 Balance -2600 / -2600 -1300 / -1300 Intake: Oral 100 / 100 Output: Urine 2700 / 2700 1300 / 1300 Other: # Unmeasured Voids 1 Weight 167 kg Weight Measurement Method Built in [facility] Diagnostic Findings Chest X-Ray 10/30/21 22:58 XR chest 1V portable HISTORY: 45 years-old Male sob acute shortness of breath COMPARISON: Chest radiograph 10/24/2021, CTA chest 06/16/2021 TECHNIQUE: Portable AP view of the chest FINDINGS: Cardiac silhouette is enlarged. Pulmonary vascular congestion with interstitial coarsening. No pneumothorax. Bibasilar consolidation with blunting of the costophrenic angles. Left subclavian pacer/AICD. Bones appear grossly intact. IMPRESSION: 1. Cardiomegaly with pulmonary edema. 2. Small pleural effusions with bibasilar consolidation. ACT 112: Negative or not required by law. The above report was generated using voice recognition software. It may contain grammatical, syntax or spelling errors. Electronically signed by: Sony Irby M.D. 10/31/2021 6:30 AM EKG 10/31/21 07:17 Preventricular complexes no longer present. ST depressions in anterior leads.
[2021-10-31] MEDS ORDERED: LANTUS PER UNIT CHARGE SQ ONE (08:15)
[2021-10-31 08:26] LABS: Estimated Average Glucose 278 mg/dl; Hemoglobin A1C 11.3 % (4.5-5.6)
[2021-10-31] MEDS ORDERED: INSULIN HUMAN REGULAR PER UNIT 10 UNITS in SYRINGE 9.9 ML IV ONE (08:30)
[2021-10-31] MEDS: FLUTICASONE/VILANTEROL 200/25MCG 14 PUFFS/INHALER INH SCH (08:47)
[2021-10-31] MEDS: MAGNESIUM OXIDE 400 MG TAB PO SCH (08:47)
[2021-10-31] MEDS: SPIRONOLACTONE 25 MG TAB PO SCH ×2 (08:47→17:59)
[2021-10-31] MEDS: PANTOprazole 40 MG TAB PO SCH ×2 (08:47→20:48)
[2021-10-31] MEDS: FAMOTIDINE 20 MG TAB PO SCH (08:47)
[2021-10-31] MEDS: CHOLECALCIFEROL 1,000 UNITS 25 MCG TAB PO SCH ×2 (08:47→20:49)
[2021-10-31] MEDS: ASPIRIN 81 MG ECTAB PO SCH (08:47)
[2021-10-31] MEDS ORDERED: INSULIN HUMAN REGULAR PER UNIT 7 UNITS in SYRINGE 6.93 ML IV ONE (12:30)
[2021-10-31] MEDS ORDERED: Nursing to Pharmacy Communication SCH (13:00)
--- NOTE | 2021-10-31 13:11 | Electrocardiogram Report ---
Test Reason : Blood Pressure : / mmHG Vent. Rate : 130 BPM Atrial Rate : 130 BPM P-R Int : 130 ms QRS Dur : 108 ms QT Int : 316 ms P-R-T Axes : -25 -57 093 degrees QTc Int : 465 ms Poor data quality, interpretation may be adversely affected Sinus tachycardia with occasional Premature ventricular complexes Left axis deviation Incomplete left bundle block T wave abnormality, consider lateral ischemia Abnormal ECG When compared with ECG of 24-OCT-2021 18:23, Premature ventricular complexes are now Present Confirmed by Harry Bush ([id number]) on 10/31/2021 1:10:54 PM Referred By: REFERRED SELF Confirmed By:Harry Bush
--- NOTE | 2021-10-31 13:26 | Electrocardiogram Report ---
Test Reason : Blood Pressure : / mmHG Vent. Rate : 093 BPM Atrial Rate : 093 BPM P-R Int : 160 ms QRS Dur : 108 ms QT Int : 396 ms P-R-T Axes : 033 -41 101 degrees QTc Int : 492 ms Normal sinus rhythm Possible Left atrial enlargement Left axis deviation Incomplete left bundle block Abnormal ECG When compared with ECG of 30-OCT-2021 22:38, (unconfirmed) Premature ventricular complexes are no longer Present ST now depressed in Anterior leads Confirmed by Harry Bush ([id number]) on 10/31/2021 1:26:12 PM Referred By: REFERRED SELF Confirmed By:Harry Bush
--- NOTE | 2021-10-31 13:45 | Pharmacy Report ---
Pharmacy Glycemic Short Note 2 - Date of Service October 31, 2021 - Glycemic Short BSG Results (Last 24 hours): 10/30/21 10/30/21 10/31/21 22:46 22:57 05:16 Glucose 341 H* 406 H* POC Glucose POC Glucose (other) 368 H* 10/31/21 10/31/21 10/31/21 06:26 12:01 12:02 Glucose POC Glucose 457 H* 366 H* 354 H* POC Glucose (other) OUTPATIENT ANTIDIABETIC REGIMEN: * Humalog 50-50 mix - 40 units SC BIDM * Trulicity HbA1c: 11.3% (10/31/21) ASSESSMENT: * is a 45 year old male with poorly controlled T2DM, well known to pharmacy glycemic service * Presented early this morning with progressively worsening shortness of breath, found to have worsening CHF * Pharmacy consulted this morning due to BSG of 457 mg/dL - T2DM ordered at this time as well * At time of consult, ordered Lantus 30 units SC x 1 based on previous inpatient glycemic data (will likely need to increase) * Also ordered IV insulin bolus with Novolog * Patient now NPO due to aspiration risk, noon BSG of 354 mg/dL - will hold off on insulin infusion given NPO and give additional IV insulin bolus * Repeat BSG this afternoon of 233 mg/dL - continue with SC basal/bolus insulin at this time PLAN FOR INPATIENT GLYCEMIC CONTROL: * Basal insulin * Lantus 30 units SQ x 1 * Bolus insulin * NovoLog per scale ACHS or Q6hrs while NPO * Goal Range: Low 110 mg/dL - High 140 mg/dL * Correction Factor: 20 mg/dL/unit * Nutritional / Prandial insulin per carb ratio of 1 unit per 7 grams CHO consumed
[2021-10-31] MEDS ORDERED: FUROSEMIDE 40 MG/4 ML VIAL IV SCH (17:00)
--- NOTE | 2021-10-31 17:09 | Hospitalist Progress Note ---
Date of Service October 31, 2021 Assessment & Plan (1) Acute on chronic heart failure with reduced ejection fraction and diastolic dysfunction: (2) Acute and chronic respiratory failure with hypoxia: (3) NICM (nonischemic cardiomyopathy): (4) Combined systolic and diastolic heart failure: (5) Obstructive sleep apnea: (6) AICD (automatic cardioverter/defibrillator) present: (7) Hypertension: (8) Diabetes mellitus type II, uncontrolled: (9) Chest pain: (10) Elevated troponin: Plan Alok is a 45 year old male w/ PmHx of HFrEF (EF 15-20%) s/p AICD, combined systolic and diastolic HF, non-ischemic cardiomyopathy, severe COPD, uncontrolled T2DM, medicine non-compliance, chronic respiratory failure, MARIELENA, HTN, obesity, and intellectual disability admitted for acute on chronic heart failure exacerbation. Acute on Chronic Heart Failure with Reduced EF and Diastolic Dysfunction: -Patient with extensive history of multiple admissions due to CHF exacerbations. -Echo 10/31/21 w/ no significant change from previous echo (07/03), EF 15-20%, severe global hypokinesis of LV. -Up 7kg from weight at last D/C. -CXR 10/30 w/ significantly increased pulmonary edema compared to CXR from 10/24. -May be due to non-compliance vs diet induced water weight gain or combination of both. -Started on 120mg IV Lasix q8h on admission. -Monitor I&O's, daily weights, wean O2 as tolerated. Elevated Troponin: -Troponin 23.8 on admission, 28.7 on repeat. -Echo as above, ECG w/ normal sinus rhythm, left bundle branch block. -Mild elevation most likely secondary to type II demand ischemia from CHF exacerbation. -Will continue plan as above, trend troponin until downtrend. Chest Pain: -Given reproduction of pain w/ palpation and heavy labored breathing prior to arrival most likely MSK related. -Plan as above. T2DM, uncontrolled: -Glucose 402 on admission, stayed in upper 300's, lower 400's. -Holding home oral medications. -SSI and pharmacy glycemic consult in place. Acute on Chronic Respiratory Failure with Hypoxia: -As above, most likely related to acute on chronic CHF exacerbation. -Hopefully wean off BiPAP w/ continued diuresis. -NPO while on BiPAP given episode of desat to 65% while off BiPAP and eating. MARIELENA: Morbid obesity -History of MARIELENA, continue CPAP qHS. Combined Systolic and Diastolic HF/Non-ischemic Cardiomyopathy/AICD: -Plan as above. Continue home metoprolol succinate, sublingual nitroglycerin, Entresto, spironolactone, ASA, magnesium oxide. HTN: -Continue home metoprolol succinate, Entresto, spironolactone. DVT Prophylaxis: Heparin 5,000U Q8h F/E/N/GI: NPO while on BiPAP, if more output by dinner can try to wean to NC and start diet if saturations WNL. Code Status: Full Dispo: PCU/Telemetry. Admission and Anticipated Discharge Date Admission Date: October 31, 2021 Supervising Physician Co-Signing Physician Notes Resident Physician Supervision Note: I independently interviewed and examined the patient and verified the caraballo history and physical, reviewed labs and image studies and agree with resident findings and care plan. Subjective Patient seen at the bedside today saying he feels like his breathing is worse, saying he had an episode earlier where the bipap was off and he was on supplemental NC O2 with subsequent decrease in O2 saturation to the 60's. He says that he ate breakfast without issue although over the past week he's had decreased appetite, eating mostly just salads. He says he has some chest and abdominal pain over both sides of the lower chest and upper abdomen. He endorses not being able to lie down flat and so he is on his side and with the head of the bed elevated. He says he is currently hungry and would like to eat. Review of Systems Constitutional: as per Subjective / HPI Physical Exam Constitutional: WD/WN, vitals as above Eyes: PERRL, conjunctivae normal, anicteric sclerae ENMT: BiPaP present on patient. Respiratory: Diminished breath sounds bilaterally throughout full lung spaces. Cardiovascular: Diminished sound, S1 and S2, regular rate and rhythm. Legs appear mildly swollen however no pitting edema. Gastrointestinal (Abdomen): BS+, obese habitus, soft. Tender to palpation throughout upper abdomen as well as intercostal spaces. Skin: No rashes visualized; scattered, dry scabs a few mm in size throughout bilateral legs. Psychiatric: A+Ox3, euthymic affect Results & Data Results & Data ([place]) Vital Signs (Past 12 Hours) Vital Signs Temp Pulse Pulse Resp BP Pulse Ox O2 Del Method 10/31/21 16:01 36.5 C 83 18 97/61 L 96 BiPAP 10/31/21 15:29 71 10/31/21 14:41 66 29 H 93 10/31/21 14:39 66 29 H 93 BiPAP 10/31/21 12:01 36.6 C 78 18 110/70 95 BiPAP 10/31/21 10:26 76 26 H 97 10/31/21 10:26 76 26 H 97 BiPAP 10/31/21 08:00 BiPAP 10/31/21 08:22 94 H 10/31/21 07:36 36.3 C L 88 18 136/62 94 BiPAP 10/31/21 07:22 89 27 H 96 BiPAP 10/31/21 07:21 89 27 H 96 FiO2 10/31/21 16:01 10/31/21 15:29 10/31/21 14:41 40 10/31/21 14:39 40 10/31/21 12:01 10/31/21 10:26 40 10/31/21 10:26 40 10/31/21 08:00 60 10/31/21 08:22 10/31/21 07:36 10/31/21 07:22 45 10/31/21 07:21 45 Resident Activity Tracking Resident Involvement: Resident Care Provided Care Provided: Adult Hospital Medicine (1) Diabetes mellitus type II, uncontrolled Glycemic state: with hyperglycemia Qualified Code(s): E11.65 - Type 2 diabetes mellitus with hyperglycemia (2) Combined systolic and diastolic heart failure Heart failure chronicity: acute Qualified Code(s): I50.41 - Acute combined systolic (congestive) and diastolic (congestive) heart failure (3) Chest pain Chest pain type: precordial pain Qualified Code(s): R07.2 - Precordial pain (4) Hypertension Hypertension type: unspecified Qualified Code(s): I10 - Essential (primary) hypertension
--- NOTE | 2021-10-31 19:07 | Emergency Department Note ---
Impression & Plan Hypoxia, Pulmonary edema Admit to the [facility] service ED Provider Note NAME: HARDIK LOVE AGE: 45 SEX: M ARRIVES VIA: Ambulance INFORMANT: Patient and his family ED PROVIDER(S): Cydney Barton DO CHIEF COMPLAINT: Chest pain and shortness of breath PLAN: Disposition: Admit to the [facility] Condition: Guarded MEDICAL DECISION MAKING: This is a 45-year-old male patient with extensive past medical history who presents to the emergency department with chest pain and shortness of breath over the past 5 days. Chest x-ray shows significant pulmonary edema. O2 saturations were stabilized on BiPAP. Patient was given 80 mg of IV Lasix. EKG was unchanged. Pressures had to be increased on the BiPAP. The patient remained hemodynamically stable. I did discuss CODE STATUS with the patient and he will remain a full code. The patient will be admitted to the [facility]. Triage Nursing notes reviewed and agree with them. Additional history obtained from family members at the bedside Prior medical records reviewed Vital Signs: reviewed and remarkable for hypoxia and hypertension Differential diagnosis: CHF, COPD, pneumonia, pneumothorax ER treatment provided: BiPAP IV Lasix Diagnostics interpreted by me: ECG: Sinus tachycardia at 130. There is T wave inversion in lead I and aVL. There is an incomplete left bundle branch block. This EKG is unchanged from October 24. Ectopy. Cardiac Monitoring: Sinus tachycardia at 126. Laboratory studies: See below Imaging studies: Per my interpretation Portable chest x-ray: Cardiomegaly; Ssevere pulmonary edema HPI: 45/M arrives for evaluation of. ROS: See above HPI for pertinent positives & negatives. A total of 10 systems reviewed and were otherwise negative. PAST MEDICAL HISTORY:See Below PAST SURGICAL HISTORY:See Below FAMILY HISTORY:See Below SOCIAL HISTORY:See Below HOME MEDICATIONS:See list ALLERGIES:See list VITALS:See Below PHYSICAL EXAMINATION: HEENT: Head - normocephalic and atraumatic. Pupils are equal, round, and reactive to light. Extraocular eye muscles are intact, and sclera are anicteric. Nose - moist nasal mucosa without discharge. Mouth - moist buccal mucosa. Oropharynx is nonerythematous and there is no tonsillar exudate or edema noted. Neck: Supple; could not appreciate any JVD Heart: Regular rate and rhythm. There is a normal S1 and S2 with no murmurs, clicks, or gallops appreciated. Lungs: Diffuse rales in all lung obrien with significantly diminished lung sounds at the bases. Abdomen: Soft, completely nontender, nondistended, with good bowel sounds. There are no palpable pulsatile masses or hepatosplenomegaly. There is no guarding, rigidity, or rebound noted. Extremities: No evidence of cyanosis, clubbing, or edema. There are easily palpable peripheral pulses. Skin: Hot and diaphoretic with good turgor and no rashes. ED COURSE: Times/Reassessments: 231: The patient was quickly examined in room B1. A complete history and physical was performed. Previous electronic medical records were reviewed. Laboratory studies were drawn as above. The patient was placed on BiPAP. He was aggressively treated. A portable chest x-ray was performed. An order was placed for continuous cardiac monitoring. The patient was in a sinus tachycardia at a rate of 126. A twelve-lead EKG was obtained as described above. Patient was treated with IV Lasix. The patient was insistent that we place a fan on him. I had a conversation with the patient about his resuscitation wishes and he continues to want to be a level 5 and have full resuscitation measures including endotracheal intubation if necessary. I have personally spent greater than 75 minutes of critical care time in the direct management of this patient. This includes bedside care, interpretation of diagnostic studies, and testing, discussion with consultants, patient, and family members, and other required patient management activities. This 75 minutes is in excess of all separately billable procedures. Cydney Barton DO Past Med/Surg History Medical History Bacteremia Chronic respiratory failure Dilatation of thoracic aorta Fatty liver Hearing loss of both ears Housing instability, currently housed, at risk for homelessness Hx of local infection of skin and subcutaneous tissue Iliac aneurysm Lung nodule NICM (nonischemic cardiomyopathy) Pt admitted for elective ICD. Underwent procedure without any complications monitored over night and discharged home. 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 Heart disease Myocardial infarction Mother , age 67 of a ruptured neck vessel Sudden Other Depression Lung disease No pertinent family history Denies family history of Ovarian cancer Prostate cancer Breast cancer Colorectal cancer Social History Smoking Status: Former smoker Tobacco Type: Cigarettes Age Started Using Tobacco: 14; Age Quit Using Tobacco: 18; Cigarettes Per Day: 40; Second Hand Exposure: No; Hx Alcohol Use: No Hx Substance Use: No Preferred Language: Maltese Communication Ability: Effective Visual Impairment: No Limitations Hearing Ability: Normal Manager Art Required: No Beliefs That Will Affect Care: None marital status: Current Living Situation: Spouse current occupational status: unemployed How many Children do You have: 0 Other Information That Helps Us Care for You: No Feels Safe at Home: Yes Safety Concerns: Feels Safe At This Time Childhood Exposure to Second-Hand Smoke: Yes Dental Care, Regularly: Yes Physical Activity Frequency: Does not Exercise Assistive Devices: BiPap, Glasses, Hearing Aid - Bilateral, Oxygen - Continuous and Walker Allergies Allergies Allergy/AdvReac Type Severity Reaction Status Date / Time ceftriaxone Allergy Severe SHORTNESS Verified 10/14/21 13:47 OF BREATH lidocaine Allergy Severe SHORTNESS Verified 10/14/21 13:47 OF BREATH, diaphoretic, hives procaine Allergy Severe SHORTNESS Verified 10/14/21 13:47 OF BREATH, diaphoretic, hives amoxicillin Allergy Intermediate HIVES/FACIAL Verified 10/14/21 13:47 SWELLING clavulanic acid Allergy Intermediate HIVES/FACIAL Verified 10/14/21 13:47 SWELLING lisinopril Allergy Intermediate HIVES Verified 10/14/21 13:47 shellfish derived Allergy Unknown Verified 10/14/21 13:47 acetaminophen AdvReac Mild NAUSEA Verified 10/14/21 13:47 albuterol AdvReac Mild proair Verified 10/14/21 13:47 "trouble taking breaths" Fish Containing Products AdvReac Unknown Unknown Verified 10/14/21 13:47 Home Meds Home Medications Medication Instructions Recorded Confirmed nitroglycerin 0.4 mg sublingual 0.4 mg sublingual UD PRN Chest Pain 04/24/19 10/14/21 tablet (Nitrostat) cholecalciferol (vitamin D3) 50 100 mcg PO BID 10/04/19 10/14/21 mcg (2,000 unit) tablet (Vitamin D3) aspirin 81 mg tablet,delayed 81 mg PO QAM 06/16/21 10/14/21 release (Neisha Low Dose Aspirin) famotidine 20 mg tablet 20 mg PO QAM 06/16/21 10/14/21 magnesium oxide 400 mg (241.3 mg 400 mg PO QAM 06/16/21 10/14/21 magnesium) tablet esomeprazole magnesium 40 mg 40 mg PO BID 08/31/21 10/14/21 capsule,delayed release spironolactone 25 mg tablet 75 mg PO UD 08/31/21 10/14/21 (Aldactone) Previous Rx's Medication Instructions Recorded albuterol sulfate 90 mcg/actuation 1 inh inhalation QID #8.5 grams 12/09/20 aerosol inhaler albuterol sulfate 2.5 mg/3 mL 2.5 mg (3 mL) inhalation Q6H #15 mL 02/21/21 (0.083 %) solution for nebulization metoprolol succinate 100 mg 100 mg PO BID #60 tabs 02/21/21 tablet,extended release 24 hr sacubitril 97 mg-valsartan 103 mg 1 tab PO BID #60 tabs 02/21/21 tablet (Entresto) insulin lispro protamine-lispro 40 unit (0.4 mL) subcut BID 30 03/22/21 100 unit/mL (50-50) subcutaneous days #24 mL pen (Humalog Mix 50-50 KwikPen) Symbicort 160 mcg-4.5 2 inh inhalation BID #10.2 grams 05/04/21 mcg/actuation HFA aerosol inhaler (budesonide-formoterol) dulaglutide 4.5 mg/0.5 mL 4.5 mg (0.5 mL) subcut .WEEKLY #2 10/03/21 subcutaneous pen injector mL (Trulicity) Results & Data (ED) Vital Signs Vital Signs - 24 hr 10/30/21 22:38 10/30/21 22:38 10/30/21 22:38 Temperature 37.1 C Temperature Source Oral Pulse Rate 133 H Pulse Rate [Apical] Respiratory Rate 30 H Respiratory Effort / Characteristics Short of Breath Respiratory Depth Shallow Shallow Respiratory Pattern Blood Pressure 206/152 H Blood Pressure [Left Arm] Blood Pressure Mean 170 Blood Pressure Mean [Left Arm] Pulse Oximetry 96 96 Oxygen Delivery Method BiPAP BiPAP Fraction of Inspired Oxygen Sepsis Recent Fever Within 48 Hours No Sepsis New/Unexplained Change in Mental Status N/A Sepsis Action Taken by Nursing Physician Notified 10/30/21 23:03 10/30/21 23:21 10/30/21 22:35 Temperature Temperature Source Pulse Rate 130 H Pulse Rate [Apical] 118 H Respiratory Rate 33 H 30 H Respiratory Effort / Characteristics Short of Breath Spontaneous Labored Short of Breath Respiratory Depth Respiratory Pattern Tachypnea Tachypnea Blood Pressure Blood Pressure [Left Arm] 209/166 H Blood Pressure Mean Blood Pressure Mean [Left Arm] 180 Pulse Oximetry 98 96 99 Oxygen Delivery Method BiPAP BiPAP Fraction of Inspired Oxygen 50 Sepsis Recent Fever Within 48 Hours Sepsis New/Unexplained Change in Mental Status Sepsis Action Taken by Nursing 10/31/21 00:20 Temperature Temperature Source Pulse Rate Pulse Rate [Apical] Respiratory Rate Respiratory Effort / Characteristics Spontaneous Labored Short of Breath Respiratory Depth Respiratory Pattern Tachypnea Blood Pressure Blood Pressure [Left Arm] Blood Pressure Mean Blood Pressure Mean [Left Arm] Pulse Oximetry Oxygen Delivery Method Fraction of Inspired Oxygen 70 Sepsis Recent Fever Within 48 Hours Sepsis New/Unexplained Change in Mental Status Sepsis Action Taken by Nursing Laboratory Data Result diagrams: 11/01/21 05:38 11/01/21 11:40 Lab Results 10/30/21 10/30/21 10/30/21 Range/Units 22:46 22:46 22:46 WBC 10.12 (4.8-10.8) K/ul RBC 5.77 (4.63-6.08) M/uL Hgb 16.1 (14.0-18.0) g/dl POC Hgb (14.0-18.0) g/dl Hct 48.7 (40.1-51.0) % POC Hct (42-52) % MCV 84.4 (80.0-100.0) fL MCH 27.9 (25.0-34.0) pg MCHC 33.1 (32.0-36.0) g/dL RDW Std Deviation 45.4 (36.4-46.3) fL RDW Coeff of Zoltan 14.9 H (11.5-14.5) % Plt Count 193 (130-400) K/uL MPV 10.7 (9.4-12.4) fL Immature Gran % (Auto) 0.8 % Neut % (Auto) 61.6 % Lymph % (Auto) 26.8 % [place] % (Auto) 9.2 % Eos % (Auto) 1.2 % Baso % (Auto) 0.4 % Neut # (Auto) 6.24 (1.4-6.5) K/uL Lymph # (Auto) 2.71 (1.2-3.4) K/uL [place] # (Auto) 0.93 H (0.24-0.82) K/uL Eos # (Auto) 0.12 (0-0.50) K/uL Baso # (Auto) 0.04 (0-0.2) K/uL Immature Gran # (Auto) 0.08 H (0.00-0.02) K/uL PT 10.6 (9.0-12.0) Seconds INR 1.0 (0.9-1.1) APTT 29.6 (21.0-31.0) Seconds PTT Ratio 1.1 POC Sodium (135-144) mmol/L Sodium 132 L (136-145) mmol/L POC Potassium (3.3-5.0) mmol/L Potassium TNP POC Chloride (101-112) mmol/L Chloride 100 (98-107) mmol/L Carbon Dioxide 23 (21-32) mmol/L POC Total CO2 (24-31) mmol/L Anion Gap 9 (3-11) POC Anion Gap (16-25) mmol/L POC BUN (7-18) mg/dl BUN 11 (6-23) mg/dl Creatinine 1.40 (0.6-1.4) mg/dl POC Creatinine (0.6-1.3) mg/dl Est Cr Clr Drug Dosing Not Reportable Est GFR ( Amer) 70.3 ml/min Est GFR (Non-Af Amer) 60.7 ml/min BUN/Creatinine Ratio 7.9 L (10-20) Glucose 341 H* (70-99(Fasting)) mg/dl POC Glucose (other) (70-99) mg/dl Calcium 8.6 (8.5-10.1) mg/dl POC Ioniz Calcium [place] (1.12-1.32) mmol/l Total Bilirubin 0.7 (0.2-1.0) mg/dl AST TNP ALT 20 (7-52) U/L Alkaline Phosphatase 102 (34-104) U/L Troponin I High Sens 23.8 H (0-20) pg/ml Total Protein 7.5 (6.0-8.3) gm/dl Albumin 4.0 (3.4-5.0) gm/dl Globulin 3.5 (2.5-4.0) gm/dl Albumin/Globulin Ratio 1.1 (0.9-2) SARS-CoV-2 (PCR) (Negative) 10/30/21 10/30/21 Range/Units 22:57 23:25 WBC (4.8-10.8) K/ul RBC (4.63-6.08) M/uL Hgb (14.0-18.0) g/dl POC Hgb 18.0 (14.0-18.0) g/dl Hct (40.1-51.0) % POC Hct 53 H (42-52) % MCV (80.0-100.0) fL MCH (25.0-34.0) pg MCHC (32.0-36.0) g/dL RDW Std Deviation (36.4-46.3) fL RDW Coeff of Zoltan (11.5-14.5) % Plt Count (130-400) K/uL MPV (9.4-12.4) fL Immature Gran % (Auto) % Neut % (Auto) % Lymph % (Auto) % [place] % (Auto) % Eos % (Auto) % Baso % (Auto) % Neut # (Auto) (1.4-6.5) K/uL Lymph # (Auto) (1.2-3.4) K/uL [place] # (Auto) (0.24-0.82) K/uL Eos # (Auto) (0-0.50) K/uL Baso # (Auto) (0-0.2) K/uL Immature Gran # (Auto) (0.00-0.02) K/uL PT (9.0-12.0) Seconds INR (0.9-1.1) APTT (21.0-31.0) Seconds PTT Ratio POC Sodium 137 (135-144) mmol/L Sodium (136-145) mmol/L POC Potassium 4.0 (3.3-5.0) mmol/L Potassium POC Chloride 101 (101-112) mmol/L Chloride (98-107) mmol/L Carbon Dioxide (21-32) mmol/L POC Total CO2 24 (24-31) mmol/L Anion Gap (3-11) POC Anion Gap 18.0 (16-25) mmol/L POC BUN 12 (7-18) mg/dl BUN (6-23) mg/dl Creatinine (0.6-1.4) mg/dl POC Creatinine 1.3 (0.6-1.3) mg/dl Est Cr Clr Drug Dosing Est GFR ( Amer) ml/min Est GFR (Non-Af Amer) ml/min BUN/Creatinine Ratio (10-20) Glucose (70-99(Fasting)) mg/dl POC Glucose (other) 368 H* (70-99) mg/dl Calcium (8.5-10.1) mg/dl POC Ioniz Calcium [place] 1.14 (1.12-1.32) mmol/l Total Bilirubin (0.2-1.0) mg/dl AST ALT (7-52) U/L Alkaline Phosphatase (34-104) U/L Troponin I High Sens (0-20) pg/ml Total Protein (6.0-8.3) gm/dl Albumin (3.4-5.0) gm/dl Globulin (2.5-4.0) gm/dl Albumin/Globulin Ratio (0.9-2) SARS-CoV-2 (PCR) NEGATIVE (Negative) Administered Medications Albuterol (Albut/Ipratrop 3mg/0.5mg Neb 3 Ml Vial) 3 ml NEB QIDR [facility]; Protocol Stop: 11/30/21 06:59 Last Admin: 11/01/21 11:01 Dose: 3 ml Documented By: Admin: 11/01/21 07:22 Dose: 3 ml Documented By: Admin: 10/31/21 20:16 Dose: 3 ml Documented By: Admin: 10/31/21 14:38 Dose: 3 ml Documented By: Admin: 10/31/21 10:25 Dose: 3 ml Documented By: Admin: 10/31/21 07:20 Dose: 3 ml Documented By: DALLAS Aspirin (Aspirin 81 Mg Ectab) 81 mg PO QAM [facility] Stop: 11/30/21 08:59 Last Admin: 11/01/21 08:54 Dose: 81 mg Documented By: Admin: 10/31/21 08:47 Dose: 81 mg Documented By: SOHA Famotidine (F[facility]otidine 20 Mg Tab) [facility] Stop: 11/30/21 08:59 Last Admin: 11/01/21 08:55 Dose: 20 mg Documented By: Admin: 10/31/21 08:47 Dose: 20 mg Documented By: SOHA Fluticasone/Vilanterol (Fluticasone/Vilanterol 200/25mcg 14 Puffs/Inhaler) 1 puffs INH DAILY SUKHWINDER Stop: 11/30/21 08:59 Last Admin: 11/01/21 08:55 Dose: 1 puffs Documented By: Admin: 10/31/21 08:47 Dose: 1 puffs Documented By: SOHA Heparin Sodium (Porcine) (Heparin Sod 5,000 Unit/0.5 Ml Vial) 5,000 units SQ Q8 SUKHWINDER Stop: 11/30/21 21:59 Last Admin: 11/01/21 05:29 Dose: Not Given Documented By: Admin: 10/31/21 20:52 Dose: Not Given Documented By: FORD Insulin Aspart (Insulin Aspart Per Unit) 0 units SC ACHS [facility] Stop: 11/30/21 17:59 Last Admin: 11/01/21 12:12 Dose: 20 units Documented By: KAILEY Co-signed By: ABBE Admin: 11/01/21 11:28 Dose: 13 units Documented By: KAILEY Co-signed By: CAROLINE Magnesium Oxide (Magnesium Oxide 400 Mg Tab) 400 mg PO QAM [facility] Stop: 11/30/21 08:59 Last Admin: 11/01/21 08:56 Dose: 400 mg Documented By: Admin: 10/31/21 08:47 Dose: 400 mg Documented By: SOHA Metoprolol Succinate (Metoprolol Succ 50mg Ext Rel Tab) 100 mg PO BID [facility] Stop: 11/30/21 02:33 Last Admin: 11/01/21 08:58 Dose: 100 mg Documented By: Admin: 10/31/21 20:48 Dose: 100 mg Documented By: Admin: 10/31/21 08:46 Dose: 100 mg Documented By: Admin: 10/31/21 04:44 Dose: 100 mg Documented By: BOSTON Nitroglycerin (Nitroglycerin 2% Ointment 30gm Tube) 1 inch EXT Q6H SUKHWINDER Stop: 11/30/21 02:59 Last Admin: 11/01/21 12:19 Dose: 1 inch Documented By: Admin: 11/01/21 06:00 Dose: 1 inch Documented By: Admin: 11/01/21 01:00 Dose: 1 inch Documented By: Admin: 10/31/21 18:03 Dose: 1 inch Documented By: Admin: 10/31/21 12:26 Dose: 1 inch Documented By: Admin: 10/31/21 06:10 Dose: 1 inch Documented By: BOSTON Pantoprazole Sodium (Pantoprazole 40 Mg Tab) 40 mg PO BID SUKHWINDER Stop: 11/30/21 08:59 Last Admin: 11/01/21 08:56 Dose: 40 mg Documented By: Admin: 10/31/21 20:48 Dose: 40 mg Documented By: Admin: 10/31/21 08:47 Dose: 40 mg Documented By: SOHA Sacubitril/Valsartan (Valsartan/Sacubitril 103/97mg Tab) 1 tab PO BID [facility] Stop: 11/30/21 02:33 Last Admin: 11/01/21 08:58 Dose: 1 tab Documented By: Admin: 10/31/21 20:48 Dose: 1 tab Documented By: Admin: 10/31/21 08:46 Dose: 1 tab Documented By: Admin: 10/31/21 04:44 Dose: 1 tab Documented By: BOSTON Spironolactone (Spironolactone 25 Mg Tab) 50 mg PO QAM SUKH[facility] Stop: 11/30/21 08:59 Last Admin: 11/01/21 08:57 Dose: 50 mg Documented By: Admin: 10/31/21 08:47 Dose: 50 mg Documented By: SOHA Spironolactone (Spironolactone 25 Mg Tab) 25 mg PO DAILY@1700 SUKHWINDER Stop: 11/30/21 16:59 Last Admin: 10/31/21 17:59 Dose: 25 mg Documented By: SOHA Vitamin D (Cholecalciferol 1,000 Units 25 Mcg Tab) 4,000 units PO BID SUKHWINDER Stop: 11/30/21 08:59 Last Admin: 11/01/21 08:54 Dose: 4,000 units Documented By: Admin: 10/31/21 20:49 Dose: 4,000 units Documented By: Admin: 10/31/21 08:47 Dose: 4,000 units Documented By: SOHA Discontinued Medications Furosemide (Furosemide 40 Mg/4 Ml Vial) 40 mg IV ONE ONE Stop: 10/30/21 23:24 Last Admin: 10/30/21 23:29 Dose: Not Given Documented By: AN Furosemide (Furosemide 40 Mg/4 Ml Vial) 80 mg IV ONE ONE Stop: 10/30/21 23:27 Last Admin: 10/30/21 23:29 Dose: 80 mg Documented By: AN Furosemide (Furosemide 40 Mg/4 Ml Vial) 40 mg IV ONE ONE Stop: 10/31/21 00:35 Last Admin: 10/31/21 00:43 Dose: 40 mg Documented By: OLE Furosemide (Furosemide 40 Mg/4 Ml Vial) 120 mg IV Q8H SUKHWINDER Stop: 11/30/21 05:59 Last Admin: 10/31/21 14:34 Dose: Not Given Documented By: Admin: 10/31/21 06:11 Dose: 120 mg Documented By: BOSTON Furosemide (Furosemide 40 Mg/4 Ml Vial) 120 mg IV Q8H SUKHWINDER Stop: 11/30/21 14:29 Last Admin: 11/01/21 06:00 Dose: 120 mg Documented By: Admin: 10/31/21 22:07 Dose: 120 mg Documented By: Admin: 10/31/21 14:54 Dose: 120 mg Documented By: SOHA Insulin Human Regular 10 units (/ Syringe) 10 mls @ 30 mls/min IV ONE ONE Stop: 10/31/21 08:31 Last Admin: 10/31/21 08:50 Dose: 30 mls/min Documented By: SOHA Co-signed By: LISS Insulin Human Regular 7 units/ (Syringe) 7 mls @ 30 mls/min IV NOW ONE Stop: 10/31/21 12:31 Last Admin: 10/31/21 12:53 Dose: 30 mls/min Documented By: SOHA Co-signed By: ABBE Famotidine 20 mg/ Syringe 5 mls @ 2.5 mls/min IV NOW ONE Stop: 11/01/21 06:16 Last Admin: 11/01/21 06:42 Dose: 2.5 mls/min Documented By: FORD Pantoprazole Sodium 40 mg/ (Syringe) 10 mls @ 5 mls/min IV ONE ONE Stop: 11/01/21 06:16 Last Admin: 11/01/21 06:42 Dose: 5 mls/min Documented By: FORD Insulin Aspart (Insulin Aspart Per Unit) 0 units SC ACHS [facility]ER Stop: 11/30/21 07:29 Last Admin: 10/31/21 12:24 Dose: 12 units Documented By: SOHA Co-signed By: FRANKO Admin: 10/31/21 07:03 Dose: 13 units Documented By: PK Co-signed By: SOHA Insulin Aspart (Insulin Aspart Per Unit) 0 units SC Q6 [facility]WINDER Stop: 11/30/21 07:29 Last Admin: 11/01/21 05:59 Dose: 4 units Documented By: FORD Co-signed By: DAREN Admin: 10/31/21 23:53 Dose: 6 units Documented By: FORD Co-signed By: CORRINE Admin: 10/31/21 18:01 Dose: 2 units Documented By: SOHA Co-signed By: FRANKO Insulin Glargine (Lantus Per Unit Charge) 30 units SQ ONE ONE Stop: 10/31/21 08:16 Last Admin: 10/31/21 08:42 Dose: 30 units Documented By: SOHA Co-signed By: MAY Insulin Glargine (Lantus Per Unit Charge) 25 units SQ ONE ONE Stop: 11/01/21 07:16 Last Admin: 11/01/21 07:51 Dose: 25 units Documented By: KAILEY Co-signed By: ABBE Nitroglycerin (Nitroglycerin 2% Ointment 30gm Tube) 1 inch EXT NOW ONE Stop: 10/31/21 00:35 Last Admin: 10/31/21 00:43 Dose: 1 inch Documented By: OLE Potassium Chloride (Potassium Chloride Crtab 20 Meq Tabcr) 40 meq PO NOW STA Stop: 11/01/21 11:39 Last Admin: 11/01/21 12:15 Dose: 40 meq Documented By: WRS Discharge Plan Visit Data Chief Complaint: Chest Pain Stated Complaint: CHEST PAIN ED Provider: Cydney Barton Discharge Problem: Hypoxia, Pulmonary edema Patient Disposition: Admitted As Inpatient Discharge Instructions Interventions: ED Discharge Assessment Last Done: 10/31/21 01:57 : Pulmonary edema Qualifiers: Chronicity: acute Qualified Code(s): J81.0 - Acute pulmonary edema
[2021-10-31] MEDS: HEPARIN SOD 5,000 UNIT/0.5 ML VIAL SQ SCH (20:52)
[2021-11-01] MEDS: NITROGLYCERIN 2% OINTMENT 30GM TUBE EXT SCH ×4 (01:00→17:31)
[2021-11-01] MEDS: HEPARIN SOD 5,000 UNIT/0.5 ML VIAL SQ SCH ×3 (05:29→21:27)
[2021-11-01] MEDS: INSULIN ASPART PER UNIT SC SCH ×6 (05:59→21:24)
[2021-11-01] MEDS: FUROSEMIDE 40 MG/4 ML VIAL IV SCH ×2 (06:00→17:02)
[2021-11-01 06:10] LABS: Basophils # (auto) 0.04 K/uL (0-0.2); Basophils % (auto) 0.4 %; Eosinophils # (auto) 0.16 K/uL (0-0.50); Eosinophils % (auto) 1.6 %; Hematocrit (blood only) 46.7 % (40.1-51.0); Hemoglobin 15.9 g/dl (14.0-18.0); Immature Granulocytes # (auto) 0.07 K/uL (0.00-0.02); Immature Granulocytes % (auto) 0.7 %; Lymphocytes % (auto) 27.2 %; Mean Corpuscular Hemoglobin 27.9 pg (25.0-34.0); Mean Corpuscular Volume 81.9 fL (80.0-100.0); Mean Platelet Volume 10.4 fL (9.4-12.4); Monocytes # (auto) 0.82 K/uL (0.24-0.82); Neutrophils # (auto) 6.41 K/uL (1.4-6.5); Neutrophils % (auto) 62.1 %; Platelet Count 181 K/uL (130-400); RDW Standard Deviation 43.9 fL (36.4-46.3)
[2021-11-01] MEDS ORDERED: FAMOTIDINE 20 MG in SYRINGE 3 ML IV ONE (06:15)
[2021-11-01] MEDS ORDERED: PANTOprazole 40 MG in SYRINGE 0 ML IV ONE (06:15)
[2021-11-01 06:26] LABS: INR 1.1 (0.9-1.1); Partial Thromboplastin Ratio 1.1; Partial Thromboplastin Time 29.9 Seconds (21.0-31.0); Prothrombin Time 11.2 Seconds (9.0-12.0)
[2021-11-01 06:34] LABS: Albumin Level 3.6 gm/dl (3.4-5.0); BUN Creatinine Ratio 13.1 (10-20); Bilirubin,Total 1.2 mg/dl (0.2-1.0); Calcium 8.7 mg/dl (8.5-10.1); Creatinine Clr Calc Pharmacy 88.7 ml/min; Est GFR (African American) 59.8 ml/min; Est GFR (Non-African American) 51.6 ml/min; Globulin 3.5 gm/dl (2.5-4.0); Magnesium 1.7 mg/dl (1.7-2.4); Potassium 3.7 mmol/L (3.5-5.1); Total Protein 7.1 gm/dl (6.0-8.3)
[2021-11-01] MEDS ORDERED: LANTUS PER UNIT CHARGE SQ ONE (07:15)
[2021-11-01] MEDS: ALBUT/IPRATROP 3MG/0.5MG NEB 3 ML VIAL NEB SCH ×4 (07:22→20:12)
[2021-11-01] MEDS: ASPIRIN 81 MG ECTAB PO SCH (08:54)
[2021-11-01] MEDS: CHOLECALCIFEROL 1,000 UNITS 25 MCG TAB PO SCH ×2 (08:54→21:27)
[2021-11-01] MEDS: FLUTICASONE/VILANTEROL 200/25MCG 14 PUFFS/INHALER INH SCH (08:55)
[2021-11-01] MEDS: FAMOTIDINE 20 MG TAB PO SCH (08:55)
[2021-11-01] MEDS: PANTOprazole 40 MG TAB PO SCH ×2 (08:56→21:25)
[2021-11-01] MEDS: MAGNESIUM OXIDE 400 MG TAB PO SCH (08:56)
[2021-11-01] MEDS: SPIRONOLACTONE 25 MG TAB PO SCH ×2 (08:57→17:01)
[2021-11-01] MEDS: METOPROLOL SUCC 50MG EXT REL TAB PO SCH ×2 (08:58→21:25)
[2021-11-01] MEDS: VALSARTAN/SACUBITRIL 103/97MG TAB PO SCH ×2 (08:58→21:26)
--- NOTE | 2021-11-01 10:00 | Hospitalist Progress Note ---
Date of Service November 01, 2021 Assessment & Plan (1) Acute on chronic heart failure with reduced ejection fraction and diastolic dysfunction: (2) Acute and chronic respiratory failure with hypoxia: (3) NICM (nonischemic cardiomyopathy): (4) Combined systolic and diastolic heart failure: (5) Obstructive sleep apnea: (6) AICD (automatic cardioverter/defibrillator) present: (7) Hypertension: (8) Diabetes mellitus type II, uncontrolled: (9) Chest pain: (10) Elevated troponin: Plan Alok is a 45 year old male w/ PmHx of HFrEF (EF 15-20%) s/p AICD, combined systolic and diastolic HF, non-ischemic cardiomyopathy, severe COPD, uncontrolled T2DM, medicine non-compliance, chronic respiratory failure, MARIELENA, HTN, obesity, and intellectual disability admitted for acute on chronic heart failure exacerbation. Acute on Chronic Heart Failure with Reduced EF and Diastolic Dysfunction: -Patient with extensive history of multiple admissions due to CHF exacerbations. -Up 7kg from weight at last D/C. -CXR 10/30 w/ significantly increased pulmonary edema compared to CXR from 10/24. -Echo 10/31/21 w/ no significant change from previous echo (07/03), EF 15-20%, severe global hypokinesis of LV. -May be due to non-compliance vs diet induced water weight gain or combination of both. -Cardiology consulted -Neg 2.6L balance -Given good improvement, reduce Lasix 120mg q8h to 80mg BID. -Monitor I&O's, daily weights, wean O2 as tolerated. Elevated Troponin: -Troponin 23.8 on admission, 28.7 -> 36.8 -> 25.8. -Echo as above, ECG w/ normal sinus rhythm, left bundle branch block. -Mild elevation most likely secondary to type II demand ischemia from CHF exacerbation. -Will continue plan as above, trend troponin until downtrend. Chest Pain: -Given reproduction of pain w/ palpation and heavy labored breathing prior to arrival most likely MSK related. -Plan as above. T2DM, uncontrolled: -Glucose 402 on admission, stayed in upper 300's, lower 400's. -Holding home oral medications. -SSI and pharmacy glycemic consult in place. Acute on Chronic Respiratory Failure with Hypoxia: -As above, most likely related to acute on chronic CHF exacerbation. -Weaned off BiPAP down to 6L NC. -Continue to wean to baseline 5L NC. MARIELENA: Morbid obesity -History of MARIELENA, continue CPAP qHS. Combined Systolic and Diastolic HF/Non-ischemic Cardiomyopathy/AICD: -Plan as above. Continue home metoprolol succinate, sublingual nitroglycerin, Entresto, spironolactone, ASA, magnesium oxide. HTN: -Continue home metoprolol succinate, Entresto, spironolactone. DVT Prophylaxis: Heparin 5,000U Q8h F/E/N/GI: Heart healthy, T2DM carb consistent, Low sodium (2gm) Code Status: Full Dispo: PCU/Telemetry. Admission and Anticipated Discharge Date Admission Date: October 31, 2021 Supervising Physician Co-Signing Physician Notes Resident Physician Supervision Note: I independently interviewed and examined the patient and verified the caraballo history and physical, reviewed labs and image studies and agree with resident findings and care plan. Subjective Patient seen at the bedside this morning saying he feels better than yesterday. He said he was able to transition to NC this morning at first at 11L but being able to be brought down to 6L at the current time close to his baseline of 5L. He also says he would like to eat today. Review of Systems Constitutional: as per Subjective / HPI Physical Exam Constitutional: WD/WN, vitals as above + obese Eyes: PERRL, conjunctivae normal, anicteric sclerae Respiratory: Distant but clear to auscultation. Gastrointestinal (Abdomen): BS+, obese habitus, mildly tender to palpation, soft. Psychiatric: A+Ox3, euthymic affect Results & Data Results & Data ([facility]) Vital Signs (Past 12 Hours) Vital Signs Temp Pulse Pulse Resp BP Pulse Ox O2 Del Method 11/01/21 09:00 76 117/73 11/01/21 07:44 36.3 C L 91 H 20 104/67 94 BiPAP 11/01/21 07:22 58 L 22 100 11/01/21 07:22 58 L 22 100 BiPAP 11/01/21 06:07 36.8 C 65 25 H 107/69 95 CPAP 11/01/21 03:35 70 21 93 11/01/21 03:52 36 C L 69 22 112/66 96 CPAP 10/31/21 23:35 76 24 98 10/31/21 22:42 36.5 C 72 24 125/73 91 Nasal Cannula 10/31/21 22:06 36.4 C L 79 25 H 121/73 91 Nasal Cannula O2 Flow Rate FiO2 11/01/21 09:00 11/01/21 07:44 11/01/21 07:22 40 11/01/21 07:22 40 11/01/21 06:07 11/01/21 03:35 40 11/01/21 03:52 40 10/31/21 23:35 40 10/31/21 22:42 6 10/31/21 22:06 6 Resident Activity Tracking Resident Involvement: Resident Care Provided Care Provided: Adult Hospital Medicine (1) Diabetes mellitus type II, uncontrolled Glycemic state: with hyperglycemia Qualified Code(s): E11.65 - Type 2 diabetes mellitus with hyperglycemia (2) Combined systolic and diastolic heart failure Heart failure chronicity: acute Qualified Code(s): I50.41 - Acute combined systolic (congestive) and diastolic (congestive) heart failure (3) Chest pain Chest pain type: precordial pain Qualified Code(s): R07.2 - Precordial pain (4) Hypertension Hypertension type: unspecified Qualified Code(s): I10 - Essential (primary) hypertension
--- NOTE | 2021-11-01 10:49 | Medical Student Progress Note ---
Date of Service November 01, 2021 Assessment & Plan (1) Acute and chronic respiratory failure with hypoxia: Plan Alok Huff is a 45 year old male patient with a complex past medical history of cardiac disease, HFrEF (15-20% EF), and respiratory distress on chronic 5L nasal cannula who was admitted for acute on chronic respiratory failure with hypoxia likely due to CHF exacerbation. Acute on Chronic Respiratory Failure with Hypoxia Patient is improving, he was taken off BiPAP this morning and placed on 6L nasal cannula. Patient is sating in low 90s. We will continue to monitor his oxygen saturation levels to ensure they are not dropping significantly. Acute on Chronic HFrEF Exacerbation Cr level elevated, 1.06, will decrease Lasix to 80mg IV BID. Continue telemetry and recheck troponin level to ensure level is decreasing. Monitor I/Os daily. Monitor BUN and Cr levels. Weight checks daily. Ensure patient is on cardiac friendly diet. Chest Pain Reproducible pain with palpitation likely due to heavy labored breathing from symptom onset, likely suggests MSK related. Pain has improved from 9/10 to 6/10. Consider administering Tylenol if pain worsens. FEN: maintain cardiac friendly and diabetic conscious diet. Code: Full Code. DVT Prophylaxis: heparin 5000 IU q8h. Disposition: PCU/telemetry. Admission and Anticipated Discharge Date Admission Date: October 31, 2021 Subjective Alok Huff is a 45 year old male patient with a complex medical history including cardiac disease, HFrEF (15-10% EF), and respiratory failure on chronic 5L nasal cannula who was admitted for acute on chronic respiratory failure with hypoxia likely due to CHF exacerbation. The patient states he is feeling much better today. He reports that his chest pain and tightness a 9/10 yesterday and improved to a 6/10 today. The patient was taken off BiPAP and put on 6L nasal c annula. Patient reports he coughed up a quarter sized amount of bright red blood this morning. He states that these symptoms were in conjunction with pain across the middle of his abdomen. The patient denies nausea, vomiting, constipation, or diarrhea. Review of Systems Constitutional: No fever, no chills, no fatigue. Respiratory: +SOB, no cough, no wheezing. Cardiovascular: Additional Comments: +chest pain, no palpitations. Gastrointestinal: +abdominal pain, no nausea, no vomiting, no constipation, no diarrhea. Physical Exam Constitutional: Alert and oriented, in no acute distress. Respiratory: Breath sounds diminished bilaterally, coarse breath sounds. No rhonchi, rales, or wheezes. Cardiovascular: Regular rate and rhythm. No murmurs, rubs, or gallops. Tenderness to palpation on left side over ribs. Capillary refill <2 seconds. No JVD, no bruits. Minimal edema in right lower extremity, non-pitting. Diminished posterior tibialis pulses bilaterally. Gastrointestinal (Abdomen): Normal bowel sounds. Abdomen firm and distended. Tenderness to palpation over umbilical region. No rebound. No hepatosplenomegaly. Results & Data ([facility]) Vital Signs (Past 12 Hours) Vital Signs Temp Pulse Pulse Resp BP Pulse Ox O2 Del Method 11/01/21 08:00 Nasal Cannula 11/01/21 09:00 76 117/73 11/01/21 07:44 36.3 C L 91 H 20 104/67 94 BiPAP 11/01/21 07:22 58 L 22 100 11/01/21 07:22 58 L 22 100 BiPAP 11/01/21 06:07 36.8 C 65 25 H 107/69 95 CPAP 11/01/21 03:35 70 21 93 11/01/21 03:52 36 C L 69 22 112/66 96 CPAP 10/31/21 23:35 76 24 98 10/31/21 22:42 36.5 C 72 24 125/73 91 Nasal Cannula O2 Flow Rate FiO2 11/01/21 08:00 6 11/01/21 09:00 11/01/21 07:44 11/01/21 07:22 40 11/01/21 07:22 40 11/01/21 06:07 11/01/21 03:35 40 11/01/21 03:52 40 10/31/21 23:35 40 10/31/21 22:42 6 Laboratory Results Cardiac Enzymes 10/31/21 11/01/21 11/01/21 Range/Units 18:24 05:38 11:40 AST 17 (13-39) U/L Troponin I High Sens 36.8 H 25.8 H D (0-20) pg/ml Coagulation 11/01/21 Range/Units 05:38 PT 11.2 (9.0-12.0) Seconds APTT 29.9 (21.0-31.0) Seconds CBC 11/01/21 Range/Units 05:38 WBC 10.30 (4.8-10.8) K/ul RBC 5.70 (4.63-6.08) M/uL Hgb 15.9 (14.0-18.0) g/dl Hct 46.7 (40.1-51.0) % Plt Count 181 (130-400) K/uL Neut # (Auto) 6.41 (1.4-6.5) K/uL Lymph # (Auto) 2.80 (1.2-3.4) K/uL [place] # (Auto) 0.82 (0.24-0.82) K/uL Eos # (Auto) 0.16 (0-0.50) K/uL Baso # (Auto) 0.04 (0-0.2) K/uL Comprehensive Metabolic Panel 11/01/21 11/01/21 11/01/21 Range/Units 05:38 11:40 12:52 Sodium 134 L TNP 130 L (136-145) mmol/L Potassium 3.7 TNP 4.0 (3.5-5.1) mmol/L Chloride 96 L 95 L (98-107) mmol/L Carbon Dioxide 28 29 (21-32) mmol/L BUN 21 24 H (6-23) mg/dl Creatinine 1.60 H D 1.47 H (0.6-1.4) mg/dl Glucose 217 H 315 H* (70-99(Fasting)) mg/dl Calcium 8.7 8.6 (8.5-10.1) mg/dl AST 17 (13-39) U/L ALT 16 (7-52) U/L Alkaline Phosphatase 79 (34-104) U/L Total Protein 7.1 (6.0-8.3) gm/dl Albumin 3.6 (3.4-5.0) gm/dl Intake and Output 11/01/21 11/01/21 11/01/21 06:59 14:59 22:59 Output Total 1400 / 5200 450 / 450 Balance -1400 / -4120 -450 / -450 Output: Urine 1400 / 5200 450 / 450 Other: Weight 160 kg Weight Measurement Method Built in [facility]
[2021-11-01] MEDS ORDERED: POTASSIUM CHLORIDE CRTAB 20 MEQ TABCR PO STA (11:38)
[2021-11-01 12:51] LABS: BUN Creatinine Ratio 16.3 (10-20); Blood Urea Nitrogen 24 mg/dl (6-23); Calcium 8.6 mg/dl (8.5-10.1); Carbon Dioxide 29 mmol/L (21-32); Chloride 95 mmol/L (98-107); Creatinine Clr Calc Pharmacy 96.5 ml/min; Est GFR (African American) 66.3 ml/min; Est GFR (Non-African American) 57.2 ml/min; Glucose 315 mg/dl (70-99(Fasting))
[2021-11-01 13:03] LABS: Troponin I High Sensitivity 25.8 pg/ml (0-20)
[2021-11-01 13:25] LABS: Magnesium 1.5 mg/dl (1.7-2.4)
--- NOTE | 2021-11-01 13:41 | Cardiology Consultation ---
Date of Consultation November 01, 2021 Assessment & Plan (1) Acute on chronic heart failure with reduced ejection fraction and diastolic dysfunction: (2) Noncompliance: (3) AICD (automatic cardioverter/defibrillator) present: (4) Obstructive sleep apnea: (5) Morbid obesity with BMI of 50.0-59.9, adult: Plan I had a long discussion with the patient regarding importance of compliance with current evidence-based heart failure therapies. Continue IV diuresis with furosemide 80 mg twice daily. Other evidence-based heart failure therapies including beta-mansoor, Entresto, and Aldactone will be continued as previously ordered. Monitor daily weight, fluid balance, GFR, and electrolytes. Diabetes management as per internal medicine. Thank you for allow me to participate in the care of your patient. History of Present Illness Reason for Consultation: CHF, EF15-20% Requesting Physician: Dr. Mosley Attending Physician: Amalia Mosley MD History of Present Illness 45-year-old patient well-known to the cardiology service presents to the emergency department with shortness of breath and acute decompensated heart failure. Treated with aggressive diuresis and BiPAP. Fluid balance negative more than 3 L overnight. Initially received 120 mg of furosemide which was subsequently de-escalated to 80 mg twice daily. Noncompliant with evidence- based heart failure therapies for at least 1 week prior to admission. Currently, patient is resting comfortably. Lying nearly supine without dyspnea. Telemetry reveals sinus rhythm with a bundle branch block. Patient denies palpitations, lightheadedness, dizziness, syncope, or near syncope. Reports history of hemoptysis which is not recent. Previously evaluated and attributed to acute decompensated heart failure. Echocardiogram performed on admission demonstrates severe LV systolic dysfunction, unchanged from prior studies. Allergies Allergy/AdvReac Type Severity Reaction Status Date / Time ceftriaxone Allergy Severe SHORTNESS Verified 10/14/21 13:47 OF BREATH lidocaine Allergy Severe SHORTNESS Verified 10/14/21 13:47 OF BREATH, diaphoretic, hives procaine Allergy Severe SHORTNESS Verified 10/14/21 13:47 OF BREATH, diaphoretic, hives amoxicillin Allergy Intermediate HIVES/FACIAL Verified 10/14/21 13:47 SWELLING clavulanic acid Allergy Intermediate HIVES/FACIAL Verified 10/14/21 13:47 SWELLING lisinopril Allergy Intermediate HIVES Verified 10/14/21 13:47 shellfish derived Allergy Unknown Verified 10/14/21 13:47 acetaminophen AdvReac Mild NAUSEA Verified 10/14/21 13:47 albuterol AdvReac Mild proair Verified 10/14/21 13:47 "trouble taking breaths" Fish Containing Products AdvReac Unknown Unknown Verified 10/14/21 13:47 Home Medications Medication Instructions Recorded Confirmed Type nitroglycerin 0.4 mg sublingual 0.4 mg sublingual UD PRN Chest Pain 04/24/19 10/14/21 History tablet (Nitrostat) cholecalciferol (vitamin D3) 50 100 mcg PO BID 10/04/19 10/14/21 History mcg (2,000 unit) tablet (Vitamin D3) albuterol sulfate 90 mcg/actuation 1 inh inhalation QID #8.5 grams 12/09/20 10/14/21 Rx aerosol inhaler albuterol sulfate 2.5 mg/3 mL 2.5 mg (3 mL) inhalation Q6H #15 mL 02/21/21 10/14/21 Rx (0.083 %) solution for nebulization metoprolol succinate 100 mg 100 mg PO BID #60 tabs 02/21/21 10/14/21 Rx tablet,extended release 24 hr sacubitril 97 mg-valsartan 103 mg 1 tab PO BID #60 tabs 02/21/21 10/14/21 Rx tablet (Entresto) insulin lispro protamine-lispro 40 unit (0.4 mL) subcut BID 30 03/22/21 10/14/21 Rx 100 unit/mL (50-50) subcutaneous days #24 mL pen (Humalog Mix 50-50 KwikPen) Symbicort 160 mcg-4.5 2 inh inhalation BID #10.2 grams 05/04/21 10/14/21 Rx mcg/actuation HFA aerosol inhaler (budesonide-formoterol) aspirin 81 mg tablet,delayed 81 mg PO QAM 06/16/21 10/14/21 History release (Neisha Low Dose Aspirin) famotidine 20 mg tablet 20 mg PO QAM 06/16/21 10/14/21 History magnesium oxide 400 mg (241.3 mg 400 mg PO QAM 06/16/21 10/14/21 History magnesium) tablet esomeprazole magnesium 40 mg 40 mg PO BID 08/31/21 10/14/21 History capsule,delayed release spironolactone 25 mg tablet 75 mg PO UD 08/31/21 10/14/21 History (Aldactone) dulaglutide 4.5 mg/0.5 mL 4.5 mg (0.5 mL) subcut .WEEKLY #2 10/03/21 10/14/21 Rx subcutaneous pen injector mL (Trulicity) Patient History Medical History Bacteremia Chronic respiratory failure Dilatation of thoracic aorta Fatty liver Hearing loss of both ears Housing instability, currently housed, at risk for homelessness Hx of local infection of skin and subcutaneous tissue Iliac aneurysm Lung nodule NICM (nonischemic cardiomyopathy) Pt admitted for elective ICD. Underwent procedure without any complications monitored over night and discharged home. 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: No Beliefs That Will Affect Care: None marital status: Current Living Situation: Spouse current occupational status: unemployed How many Children do You have: 0 Other Information That Helps Us Care for You: No Feels Safe at Home: Yes Safety Concerns: Feels Safe At This Time Childhood Exposure to Second-Hand Smoke: Yes Dental Care, Regularly: Yes Physical Activity Frequency: Does not Exercise Assistive Devices: BiPap, Glasses, Hearing Aid - Bilateral, Oxygen - Continuous and Walker Review of Systems Review of Systems: All systems reviewed & are unremarkable except as noted in Subjective Physical Exam Constitutional: + morbidly obese Respiratory: normal respiratory effort; no respiratory distress, no labored breathing and no retractions Auscultation: + diminished lung sounds (Bases bilateral) and + rales (Bases bilateral); no rhonchi and no wheezes Cardiovascular: Rate/Rhythm: regular rate and regular rhythm Heart Sounds: normal S1 and normal S2; no murmur Vessels: + JVD and radial pulses present; no carotid bruit Extremities: + edema (Mild bilateral pedal edema) Gastrointestinal (Abdomen): Inspection/Auscultation: abdomen normal to inspection and normal bowel sounds; abdomen not distended Percussion/Palpation: + abdomen rigid and abdomen soft; abdomen nontender and no guarding Neurologic: CN's II-XI intact bilaterally and moves all extremities; no focal motor deficits Motor/Sensory: no tremor Results & Data ([facility]) Vital Signs (Past 12 Hours) Vital Signs Temp Pulse Pulse Pulse Resp BP Pulse Ox 11/01/21 11:44 36.7 C 75 20 144/58 H 96 11/01/21 11:02 73 22 96 11/01/21 08:00 11/01/21 09:00 76 117/73 11/01/21 07:44 36.3 C L 91 H 20 104/67 94 11/01/21 07:22 58 L 22 100 11/01/21 07:22 58 L 22 100 11/01/21 06:07 36.8 C 65 25 H 107/69 95 11/01/21 03:35 70 21 93 11/01/21 03:52 36 C L 69 22 112/66 96 O2 Del Method O2 Flow Rate FiO2 11/01/21 11:44 Nasal Cannula 6 11/01/21 11:02 Nasal Cannula 6 11/01/21 08:00 Nasal Cannula 6 11/01/21 09:00 11/01/21 07:44 BiPAP 11/01/21 07:22 40 11/01/21 07:22 BiPAP 40 11/01/21 06:07 CPAP 11/01/21 03:35 40 11/01/21 03:52 CPAP 40
--- NOTE | 2021-11-01 14:40 | Pharmacy Report ---
Pharmacy Glycemic Short Note 2 - Date of Service November 01, 2021 - Glycemic Short BSG Results (Last 24 hours): 10/31/21 10/31/21 11/01/21 18:00 23:40 05:38 Glucose 217 H POC Glucose 177 H 255 H 11/01/21 11/01/21 11/01/21 05:52 07:30 11:20 Glucose POC Glucose 220 H 206 H 283 H 11/01/21 11/01/21 11/01/21 11:40 14:00 14:01 Glucose 315 H* POC Glucose 336 H* 315 H* OUTPATIENT ANTIDIABETIC REGIMEN: * Humalog 50-50 mix - 40 units SC BIDM * [facility] HbA1c: 11.3% (10/31/21) ASSESSMENT: 11/01/21: * BSGs remain elevated today, likely basal deficient based on BSGs at time of presentation * Originally NPO -> back to T2DM diet today * Will increase basal insulin and tighten bolus parameters today 10/31/21: * is a 45 year old male with poorly controlled T2DM, well known to pharmacy glycemic service * Presented early this morning with progressively worsening shortness of breath, found to have worsening CHF * Pharmacy consulted this morning due to BSG of 457 mg/dL - T2DM ordered at this time as well * At time of consult, ordered Lantus 30 units SC x 1 based on previous inpatient glycemic data (will likely need to increase) * Also ordered IV insulin bolus with Novolog * Patient now NPO due to aspiration risk, noon BSG of 354 mg/dL - will hold off on insulin infusion given NPO and give additional IV insulin bolus * Repeat BSG this afternoon of 233 mg/dL - continue with SC basal/bolus insulin at this time PLAN FOR INPATIENT GLYCEMIC CONTROL: * Basal insulin * Lantus 25 units SC BID * Reassess in AM * Bolus insulin * NovoLog per scale ACHS or Q6hrs while NPO * Goal Range: Low 110 mg/dL - High 140 mg/dL * Correction Factor: 20 mg/dL/unit * Nutritional / Prandial insulin per carb ratio of 1 unit per 6 grams CHO consumed
--- NOTE | 2021-11-01 16:25 | Electrocardiogram Report ---
Test Reason : Blood Pressure : / mmHG Vent. Rate : 072 BPM Atrial Rate : 072 BPM P-R Int : 164 ms QRS Dur : 112 ms QT Int : 470 ms P-R-T Axes : 007 -22 184 degrees QTc Int : 514 ms Normal sinus rhythm Possible Left atrial enlargement Incomplete left bundle block Left ventricular hypertrophy with repolarization abnormality Prolonged QT Abnormal ECG When compared with ECG of 31-OCT-2021 06:02, T wave inversion now evident in Inferior leads T wave inversion more evident in Lateral leads Confirmed by Harry Bush ([id number] on 11/01/2021 4:25:21 PM Referred By: REFERRED SELF Confirmed By:Harry Bush
[2021-11-01] MEDS ORDERED: LANTUS PER UNIT CHARGE SQ SCH (21:00)
[2021-11-02] MEDS: NITROGLYCERIN 2% OINTMENT 30GM TUBE EXT SCH ×2 (02:22→06:44)
[2021-11-02] MEDS: HEPARIN SOD 5,000 UNIT/0.5 ML VIAL SQ SCH ×4 (05:09→22:27)
[2021-11-02 06:05] LABS: Basophils # (auto) 0.04 K/uL (0-0.2); Basophils % (auto) 0.5 %; Eosinophils # (auto) 0.13 K/uL (0-0.50); Eosinophils % (auto) 1.5 %; Hematocrit (blood only) 46.3 % (40.1-51.0); Hemoglobin 15.8 g/dl (14.0-18.0); Immature Granulocytes # (auto) 0.08 K/uL (0.00-0.02); Immature Granulocytes % (auto) 0.9 %; Lymphocytes % (auto) 25.5 %; Mean Corpuscular Hgb Conc 34.1 g/dL (32.0-36.0); Mean Corpuscular Volume 81.9 fL (80.0-100.0); Mean Platelet Volume 10.7 fL (9.4-12.4); Monocytes # (auto) 0.74 K/uL (0.24-0.82); Monocytes % (auto) 8.6 %; Neutrophils # (auto) 5.45 K/uL (1.4-6.5); Platelet Count 167 K/uL (130-400); RDW Coefficient of Variation 14.7 % (11.5-14.5); RDW Standard Deviation 43.7 fL (36.4-46.3); Red Blood Count 5.65 M/uL (4.63-6.08); White Blood Count 8.64 K/ul (4.8-10.8)
[2021-11-02 06:22] LABS: Partial Thromboplastin Ratio 1.1; Partial Thromboplastin Time 29.3 Seconds (21.0-31.0); Prothrombin Time 10.6 Seconds (9.0-12.0)
[2021-11-02 06:46] LABS: Albumin Level 3.5 gm/dl (3.4-5.0); BUN Creatinine Ratio 24.6 (10-20); Bilirubin,Total 0.7 mg/dl (0.2-1.0); Calcium 8.7 mg/dl (8.5-10.1); Creatinine Clr Calc Pharmacy 125.3 ml/min; Est GFR (African American) 90.2 ml/min; Est GFR (Non-African American) 77.8 ml/min; Globulin 3.4 gm/dl (2.5-4.0); Magnesium 1.8 mg/dl (1.7-2.4); Potassium 3.9 mmol/L (3.5-5.1); Total Protein 6.9 gm/dl (6.0-8.3)
[2021-11-02] MEDS: ALBUT/IPRATROP 3MG/0.5MG NEB 3 ML VIAL NEB SCH ×4 (06:59→20:09)
[2021-11-02] MEDS ORDERED: LANTUS PER UNIT CHARGE SQ ONE (07:30)
[2021-11-02] MEDS: INSULIN ASPART PER UNIT SC SCH ×4 (07:54→20:42)
[2021-11-02] MEDS: MAGNESIUM OXIDE 400 MG TAB PO SCH (08:16)
[2021-11-02] MEDS: FAMOTIDINE 20 MG TAB PO SCH (08:16)
[2021-11-02] MEDS: ASPIRIN 81 MG ECTAB PO SCH (08:16)
[2021-11-02] MEDS: METOPROLOL SUCC 50MG EXT REL TAB PO SCH ×2 (08:16→20:44)
[2021-11-02] MEDS: CHOLECALCIFEROL 1,000 UNITS 25 MCG TAB PO SCH ×2 (08:16→20:41)
[2021-11-02] MEDS: VALSARTAN/SACUBITRIL 103/97MG TAB PO SCH ×2 (08:17→20:45)
[2021-11-02] MEDS: SPIRONOLACTONE 25 MG TAB PO SCH ×2 (08:17→17:15)
[2021-11-02] MEDS: FLUTICASONE/VILANTEROL 200/25MCG 14 PUFFS/INHALER INH SCH (08:17)
[2021-11-02] MEDS: FUROSEMIDE 40 MG/4 ML VIAL IV SCH ×2 (08:17→17:16)
[2021-11-02] MEDS: PANTOprazole 40 MG TAB PO SCH ×2 (08:17→20:46)
--- NOTE | 2021-11-02 11:07 | Cardiology Progress Note ---
Date of Service November 02, 2021 Assessment & Plan (1) Acute on chronic heart failure with reduced ejection fraction and diastolic dysfunction: (2) Noncompliance: (3) AICD (automatic cardioverter/defibrillator) present: (4) Obstructive sleep apnea: (5) Morbid obesity with BMI of 50.0-59.9, adult: Plan Again, reviewed importance of compliance with current evidence-based heart failure therapies. Continue IV diuresis with furosemide 80 mg twice daily. Other evidence-based heart failure therapies including beta-mansoor, Entresto, and Aldactone will be continued as previously ordered. Discontinue Nitropaste. Monitor daily weight, fluid balance, GFR, and electrolytes. Diabetes management as per internal medicine. Thank you for allow me to participate in the care of your patient. Admission and Anticipated Discharge Date Admission Date: October 31, 2021 Subjective Patient seen examined the bedside. Fluid balance negative more than 2 L. Serum creatinine trending downward. Patient notes abdominal bloating and some left lower quadrant discomfort. Denies chest pain or heaviness. No orthopnea or PND. Edema improving. Telemetry reveals sinus rhythm and sinus bradycardia. Review of Systems Review of Systems: All systems reviewed & are unremarkable except as noted in Subjective Physical Exam Constitutional: + morbidly obese Respiratory: normal respiratory effort; no respiratory distress, no labored breathing and no retractions Auscultation: + diminished lung sounds (Bases bilateral) and + rales (Bases bilateral); no rhonchi and no wheezes Cardiovascular: Rate/Rhythm: regular rate and regular rhythm Heart Sounds: normal S1 and normal S2; no murmur Vessels: + JVD and radial pulses present; no carotid bruit Extremities: + edema (Mild bilateral pedal edema) Gastrointestinal (Abdomen): Inspection/Auscultation: abdomen normal to inspection and normal bowel sounds; abdomen not distended Percussion/Palpation: + abdomen rigid and abdomen soft; abdomen nontender and no guarding Neurologic: CN's II-XI intact bilaterally and moves all extremities; no focal motor deficits Motor/Sensory: no tremor Results & Data ([facility]) Vital Signs (Past 12 Hours) Vital Signs Temp Pulse Pulse Pulse Resp BP Pulse Ox 11/02/21 08:00 11/02/21 10:21 67 20 97 11/02/21 08:00 36.5 C 79 16 112/73 95 09/21/22 07:22 69 20 95 11/02/21 04:00 36.5 C 58 L 18 107/72 96 11/01/21 23:39 36.5 C 73 18 102/67 92 11/01/21 23:20 80 O2 Del Method O2 Flow Rate 11/02/21 08:00 Nasal Cannula 4 11/02/21 10:21 Nasal Cannula 4 11/02/21 08:00 Nasal Cannula 4 11/02/21 07:22 Nasal Cannula 4 11/02/21 04:00 Nasal Cannula 4 11/01/21 23:39 Nasal Cannula 4 11/01/21 23:20
[2021-11-02] MEDS ORDERED: ACETAMINOPHEN 1000 MG/100 ML IV IV ONE (11:26)
--- NOTE | 2021-11-02 12:21 | Electrocardiogram Report ---
Test Reason : Blood Pressure : / mmHG Vent. Rate : 059 BPM Atrial Rate : 059 BPM P-R Int : 174 ms QRS Dur : 116 ms QT Int : 466 ms P-R-T Axes : 006 001 193 degrees QTc Int : 461 ms Sinus bradycardia Possible Left atrial enlargement Incomplete left bundle block Abnormal ECG When compared with ECG of 01-NOV-2021 05:45, QT has shortened Confirmed by Harry Bush ([id number] on 11/02/2021 12:20:49 PM Referred By: REFERRED SELF Confirmed By:Harry Bush
--- NOTE | 2021-11-02 13:12 | Pharmacy Report ---
Pharmacy Glycemic Short Note 2 - Date of Service November 02, 2021 - Glycemic Short BSG Results (Last 24 hours): 11/01/21 11/01/21 11/01/21 14:00 14:01 15:59 Glucose POC Glucose 336 H* 315 H* 275 H 11/01/21 11/02/21 11/02/21 20:48 05:36 07:16 Glucose 304 H* POC Glucose 135 H 299 H 11/02/21 11/02/21 12:10 12:13 Glucose POC Glucose 301 H* 280 H OUTPATIENT ANTIDIABETIC REGIMEN: * Humalog 50-50 mix - 40 units SC BIDM * Trulicity HbA1c: 11.3% (10/31/21) ASSESSMENT: 11/02/21: * BSGs remain elevated * PM Lantus intended for yesterday inadvertently ordered for today, so only half of daily Lantus dose given. Gave full 50 units x 1 this morning and will order scaled dose for this evening * Will further tighten Novolog parameters in light of persistent hyperglycemia 11/01/21: * BSGs remain elevated today, likely basal deficient based on BSGs at time of presentation * Originally NPO -> back to T2DM diet today * Will increase basal insulin and tighten bolus parameters today 10/31/21: * MG is a 45 year old male with poorly controlled T2DM, well known to pharmacy glycemic service * Presented early this morning with progressively worsening shortness of breath, found to have worsening CHF * Pharmacy consulted this morning due to BSG of 457 mg/dL - T2DM ordered at this time as well * At time of consult, ordered Lantus 30 units SC x 1 based on previous inpatient glycemic data (will likely need to increase) * Also ordered IV insulin bolus with Novolog * Patient now NPO due to aspiration risk, noon BSG of 354 mg/dL - will hold off on insulin infusion given NPO and give additional IV insulin bolus * Repeat BSG this afternoon of 233 mg/dL - continue with SC basal/bolus insulin at this time PLAN FOR INPATIENT GLYCEMIC CONTROL: * Basal insulin * Lantus 50 units SC x 1 * Lantus 5-25 units SC HS * Bolus insulin * NovoLog per scale ACHS or Q6hrs while NPO * Goal Range: Low 110 mg/dL - High 140 mg/dL * Correction Factor: 12 mg/dL/unit * Nutritional / Prandial insulin per carb ratio of 1 unit per 4 grams CHO consumed
[2021-11-02] MEDS ORDERED: LANTUS PER UNIT CHARGE SQ SCH ×2 (17:00→21:00)
--- NOTE | 2021-11-02 18:23 | Hospitalist Progress Note ---
Date of Service November 02, 2021 Assessment & Plan (1) Acute on chronic heart failure with reduced ejection fraction and diastolic dysfunction: (2) Acute and chronic respiratory failure with hypoxia: (3) NICM (nonischemic cardiomyopathy): (4) Combined systolic and diastolic heart failure: (5) Obstructive sleep apnea: (6) AICD (automatic cardioverter/defibrillator) present: (7) Hypertension: (8) Diabetes mellitus type II, uncontrolled: (9) Chest pain: (10) Elevated troponin: Plan Alok is a 45 year old male w/ PmHx of HFrEF (EF 15-20%) s/p AICD, combined systolic and diastolic HF, non-ischemic cardiomyopathy, severe COPD, uncontrolled T2DM, medicine non-compliance, chronic respiratory failure, MARIELENA, HTN, obesity, and intellectual disability admitted for acute on chronic heart failure exacerbation. Acute on Chronic Heart Failure with Reduced EF and Diastolic Dysfunction: -Patient with extensive history of multiple admissions due to CHF exacerbations. -Up 7kg from weight at last D/C. -CXR 10/30 w/ significantly increased pulmonary edema compared to CXR from 10/24. -Echo 10/31/21 w/ no significant change from previous echo (07/03), EF 15-20%, severe global hypokinesis of LV. -May be due to non-compliance vs diet induced water weight gain or combination of both. -Cardiology consulted -Neg 2.1L balance -Given good improvement, reduce Lasix 120mg q8h to 80mg BID. -Monitor I&O's, daily weights, wean O2 as tolerated. Elevated Troponin: -Troponin 23.8 on admission, 28.7 -> 36.8 -> 25.8. -Echo as above, ECG w/ normal sinus rhythm, left bundle branch block. -Mild elevation most likely secondary to type II demand ischemia from CHF exacerbation. -Will continue plan as above. Chest Pain: -Given reproduction of pain w/ palpation and heavy labored breathing prior to arrival most likely MSK related. -Plan as above. T2DM, uncontrolled: -Glucose 402 on admission, stayed in upper 300's, lower 400's. -Holding home oral medications. -SSI and pharmacy glycemic consult in place. Acute on Chronic Respiratory Failure with Hypoxia: -As above, most likely related to acute on chronic CHF exacerbation. -Weaned off BiPAP down to 6L NC. -Continue to wean to baseline 5L NC. MARIELENA: Morbid obesity -History of MARIELENA, continue CPAP qHS. Combined Systolic and Diastolic HF/Non-ischemic Cardiomyopathy/AICD: -Plan as above. Continue home metoprolol succinate, sublingual nitroglycerin, Entresto, spironolactone, ASA, magnesium oxide. HTN: -Continue home metoprolol succinate, Entresto, spironolactone. DVT Prophylaxis: Heparin 5,000U Q8h F/E/N/GI: Heart healthy, T2DM carb consistent, Low sodium (2gm) Code Status: Full Dispo: PCU/Telemetry, will plan for discharge tomorrow. Will reach out to medical records for copies of XR for patient. Admission and Anticipated Discharge Date Admission Date: October 31, 2021 Supervising Physician Co-Signing Physician Notes Resident Physician Supervision Note: I independently interviewed and examined the patient and verified the caraballo history and physical, reviewed labs and image studies and agree with resident findings and care plan. Subjective Patient seen at the bedside this morning with a complaint of neck and back pain. He says his breathing is close to baseline and he is eating well. When I visited him later on in the day he said that his pain was relieved with IV Tylenol, nursing said they were told by patient he's allergic to a powder in oral Tylenol. Patient also stated he would like copies of his X-rays from this visit. Review of Systems Constitutional: as per Subjective / HPI Physical Exam Constitutional: WD/WN, vitals as above + obese Eyes: PERRL, conjunctivae normal, anicteric sclerae Respiratory: normal respiratory effort, lungs clear to auscultation Cardiovascular: RRR, no murmur, no edema Gastrointestinal (Abdomen): BS+, obese habitus, mildly tender to palpation. Psychiatric: A+Ox3, euthymic affect Results & Data Results & Data ([facility]) Vital Signs (Past 12 Hours) Vital Signs Temp Pulse Pulse Resp BP Pulse Ox O2 Del Method 11/02/21 15:24 84 20 98 Nasal Cannula 11/02/21 14:49 36.9 C 76 18 105/73 98 Nasal Cannula 11/02/21 12:00 36.5 C 60 18 138/60 96 Nasal Cannula 11/02/21 08:00 Nasal Cannula 11/02/21 10:21 67 20 97 Nasal Cannula 11/02/21 08:00 36.5 C 79 16 112/73 95 Nasal Cannula 11/02/21 07:22 69 20 95 Nasal Cannula O2 Flow Rate 11/02/21 15:24 4 11/02/21 14:49 11/02/21 12:00 4 11/02/21 08:00 4 11/02/21 10:21 4 11/02/21 08:00 4 11/02/21 07:22 4 Resident Activity Tracking Resident Involvement: Resident Care Provided Care Provided: Adult Hospital Medicine (1) Diabetes mellitus type II, uncontrolled Glycemic state: with hyperglycemia Qualified Code(s): E11.65 - Type 2 diabetes mellitus with hyperglycemia (2) Combined systolic and diastolic heart failure Heart failure chronicity: acute Qualified Code(s): I50.41 - Acute combined systolic (congestive) and diastolic (congestive) heart failure (3) Chest pain Chest pain type: precordial pain Qualified Code(s): R07.2 - Precordial pain (4) Hypertension Hypertension type: unspecified Qualified Code(s): I10 - Essential (primary) hypertension
[2021-11-03 06:15] LABS: Basophils # (auto) 0.04 K/uL (0-0.2); Basophils % (auto) 0.5 %; Eosinophils # (auto) 0.15 K/uL (0-0.50); Eosinophils % (auto) 1.7 %; Hematocrit (blood only) 47.8 % (40.1-51.0); Hemoglobin 16.1 g/dl (14.0-18.0); Immature Granulocytes # (auto) 0.07 K/uL (0.00-0.02); Immature Granulocytes % (auto) 0.8 %; Lymphocytes # (auto) 2.41 K/uL (1.2-3.4); Lymphocytes % (auto) 27.7 %; Mean Corpuscular Hemoglobin 27.9 pg (25.0-34.0); Mean Corpuscular Hgb Conc 33.7 g/dL (32.0-36.0); Mean Corpuscular Volume 82.7 fL (80.0-100.0); Mean Platelet Volume 10.4 fL (9.4-12.4); Monocytes # (auto) 0.76 K/uL (0.24-0.82); Monocytes % (auto) 8.7 %; Neutrophils # (auto) 5.27 K/uL (1.4-6.5); Neutrophils % (auto) 60.6 %; Platelet Count 173 K/uL (130-400); Red Blood Count 5.78 M/uL (4.63-6.08)
[2021-11-03 06:40] LABS: BUN Creatinine Ratio 26.3 (10-20); Creatinine Clr Calc Pharmacy 125.3 ml/min; Est GFR (African American) 90.2 ml/min; Est GFR (Non-African American) 77.8 ml/min; Magnesium 1.8 mg/dl (1.7-2.4)
[2021-11-03] MEDS: ALBUT/IPRATROP 3MG/0.5MG NEB 3 ML VIAL NEB SCH ×3 (06:52→14:13)
[2021-11-03 07:01] LABS: Partial Thromboplastin Time 28.6 Seconds (21.0-31.0)
[2021-11-03] MEDS ORDERED: LANTUS PER UNIT CHARGE SQ ONE (08:00)
[2021-11-03] MEDS: INSULIN ASPART PER UNIT SC SCH ×2 (09:09→12:27)
[2021-11-03] MEDS: FAMOTIDINE 20 MG TAB PO SCH (09:16)
[2021-11-03] MEDS: METOPROLOL SUCC 50MG EXT REL TAB PO SCH (09:16)
[2021-11-03] MEDS: ASPIRIN 81 MG ECTAB PO SCH (09:17)
[2021-11-03] MEDS: CHOLECALCIFEROL 1,000 UNITS 25 MCG TAB PO SCH (09:17)
[2021-11-03] MEDS: MAGNESIUM OXIDE 400 MG TAB PO SCH (09:18)
[2021-11-03] MEDS: SPIRONOLACTONE 25 MG TAB PO SCH (09:18)
[2021-11-03] MEDS: FLUTICASONE/VILANTEROL 200/25MCG 14 PUFFS/INHALER INH SCH (09:19)
[2021-11-03] MEDS: VALSARTAN/SACUBITRIL 103/97MG TAB PO SCH (09:19)
[2021-11-03] MEDS: PANTOprazole 40 MG TAB PO SCH (09:19)
[2021-11-03] MEDS: FUROSEMIDE 40 MG/4 ML VIAL IV SCH (09:20)
--- NOTE | 2021-11-03 12:33 | Cardiology Progress Note ---
Date of Service November 03, 2021 Assessment & Plan (1) Acute on chronic heart failure with reduced ejection fraction and diastolic dysfunction: (2) Noncompliance: (3) AICD (automatic cardioverter/defibrillator) present: (4) Obstructive sleep apnea: (5) Morbid obesity with BMI of 50.0-59.9, adult: Plan Again, reviewed importance of compliance with current evidence-based heart failure therapies. Patient requesting discharge today. Recommend continuing IV diuresis with fur osemide 80 mg twice daily for an additional 24 hours if patient agreeable. Consider transition to oral diuretic therapy in a.m (outpatient dose, torsemide 80 mg in a.m., 40mg and evening). Other evidence-based heart failure therapies including beta-mansoor, Entresto, and Aldactone will be continued as previously ordered. Monitor daily weight, fluid balance, GFR, and electrolytes. Diabetes management as per internal medicine. Admission and Anticipated Discharge Date Admission Date: October 31, 2021 Subjective Patient seen and examined at the bedside. Feeling better today. Requesting discharge. Fluid balance negative an additional 2100 cc. Renal function remai ns stable. Review of Systems Review of Systems: All systems reviewed & are unremarkable except as noted in Subjective Physical Exam Constitutional: + morbidly obese Respiratory: normal respiratory effort; no respiratory distress, no labored breathing and no retractions Auscultation: + diminished lung sounds (Bases bilateral) and + rales (Bases bilateral); no rhonchi and no wheezes Cardiovascular: Rate/Rhythm: regular rate and regular rhythm Heart Sounds: normal S1 and normal S2; no murmur Vessels: + JVD and radial pulses present; no carotid bruit Extremities: no edema Gastrointestinal (Abdomen): Inspection/Auscultation: abdomen normal to inspection and normal bowel sounds; abdomen not distended Percussion/Palpation: + abdomen rigid and abdomen soft; abdomen nontender and no guarding Neurologic: CN's II-XI intact bilaterally and moves all extremities; no focal motor deficits Motor/Sensory: no tremor Results & Data ([facility]) Vital Signs (Past 12 Hours) Vital Signs Temp Pulse Pulse Resp BP Pulse Ox O2 Del Method 11/03/21 11:36 36.5 C 90 24 92/67 L 95 Room Air 11/03/21 10:39 83 20 95 Nasal Cannula 11/03/21 06:52 83 20 94 Nasal Cannula 11/03/21 07:28 36.4 C L 76 26 H 98/72 L 92 Nasal Cannula 11/03/21 07:18 71 11/03/21 03:43 36.4 C L 72 100/70 93 Nasal Cannula O2 Flow Rate 11/03/21 11:36 11/03/21 10:39 4 11/03/21 06:52 4 11/03/21 07:28 4 11/03/21 07:18 11/03/21 03:43 4.5
[2021-11-03] MEDS: HEPARIN SOD 5,000 UNIT/0.5 ML VIAL SQ SCH (13:08)
--- NOTE | 2021-11-03 15:37 | Discharge Summary ---
Date of Service November 03, 2021 Admission HPI Per Admitting Provider The patient is a 45-year-old male with a past medical history including severe COPD, combined systolic and diastolic heart failure, nonischemic cardiomyopathy, peripheral neuropathy, chronic respiratory failure, MARIELENA, AICD, hypertension, medical noncompliance, morbid obesity, intellectual disability, urinary bladder incontinence, V. tach, hemoptysis, and multiple previous admissions for similar symptoms. Upon arrival to the emergency department the patient was found to be severely hypoxic, with chest x-ray showing significantly worsening CHF compared to x-ray of 5 days previously, with moist cough and patient denying any known exacerbating factors. He was placed on BiPAP, with somewhat improved symptoms, and was given Lasix 80 mg IV by the ED. Of note, patient was COVID-19 negative in the ED, had elevated troponin of 23.8 and a glucose of 341 Admission Exam Per Admitting Provider The patient is awake, alert and oriented 3, morbidly obese, normocephalic and atraumatic, lying in bed and in moderate respiratory distress with accessory muscle use HEENT--PERRL, EOMI, mucous membranes and oropharynx dry. Neck--supple. No JVD. No bruits. Thyroid normal, trachea midline, no adenopathy. Heart--normal S1 and S2. No murmurs, rubs or gallops. Lungs--coarse breath sounds bilaterally with wheezes and rhonchi throughout. Moderate respiratory distress with accessory muscle use, improving on BiPAP Abdomen--normal bowel sounds and soft. Nontender. Nondistended. Morbidly obese Extremities--2+ bilateral pretibial pitting edema Dermatologic--normal skin turgor, normal color, no abnormal lymph nodes, no rash. Neurologic--cranial nerves II through XII grossly intact. Rheumatologic--normal range of motion. Psychiatric--normal affect. Principal Diagnosis Acute on Chronic heart failure exacerbation. Discharge Exam Constitutional WD/WN, vitals as above + obese Eyes PERRL, conjunctivae normal, anicteric sclerae Respiratory normal respiratory effort, lungs clear to auscultation Cardiovascular RRR, no murmur, no edema Gastrointestinal (Abdomen) BS+, obese habitus, soft, non-tender. Psychiatric A+Ox3, euthymic affect Discharge Data Allergies Allergy/AdvReac Type Severity Reaction Status Date / Time ceftriaxone Allergy Severe SHORTNESS Verified 10/14/21 13:47 OF BREATH lidocaine Allergy Severe SHORTNESS Verified 10/14/21 13:47 OF BREATH, diaphoretic, hives procaine Allergy Severe SHORTNESS Verified 10/14/21 13:47 OF BREATH, diaphoretic, hives amoxicillin Allergy Intermediate HIVES/FACIAL Verified 10/14/21 13:47 SWELLING clavulanic acid Allergy Intermediate HIVES/FACIAL Verified 10/14/21 13:47 SWELLING lisinopril Allergy Intermediate HIVES Verified 10/14/21 13:47 shellfish derived Allergy Unknown Verified 10/14/21 13:47 acetaminophen AdvReac Mild NAUSEA Verified 10/14/21 13:47 albuterol AdvReac Mild proair Verified 10/14/21 13:47 "trouble taking breaths" Fish Containing Products AdvReac Unknown Unknown Verified 10/14/21 13:47 Consultations 11/01/21 11:48 Consult Cardiology Routine 11/03/21 10:19 Burn CD for patient Routine Diabetes Follow up Diabetes Follow-up Needed for HgbA1c >9% Hospital Course (1) Acute on chronic heart failure with reduced ejection fraction and diastolic dysfunction: (2) Acute and chronic respiratory failure with hypoxia: (3) NICM (nonischemic cardiomyopathy): (4) Combined systolic and diastolic heart failure: (5) Obstructive sleep apnea: (6) AICD (automatic cardioverter/defibrillator) present: (7) Hypertension: (8) Diabetes mellitus type II, uncontrolled: (9) Chest pain: (10) Elevated troponin: Riri Dickinson is a 45 year old male w/ PmHx of HFrEF (EF 15-20%) s/p AICD, combined systolic and diastolic HF, non-ischemic cardiomyopathy, severe COPD, uncontrolled T2DM, medicine non-compliance, chronic respiratory failure, MARIELENA, HTN, obesity, and intellectual disability admitted for acute on chronic heart failure exacerbation. Acute on Chronic Heart Failure with Reduced EF and Diastolic Dysfunction: -Patient with extensive history of multiple admissions due to CHF exacerbations. -Up 7kg from weight at last D/C. -CXR 10/30 w/ significantly increased pulmonary edema compared to CXR from 10/24. -Echo 10/31/21 w/ no significant change from previous echo (07/03), EF 15-20%, severe global hypokinesis of LV. -exacerbation sec to non-compliance. known history. -Cardiology consulted - mostly compliance issue, cont. outpatient torsemide 80mg qam, 40mg evening. Cont. B-mansoor, Entresto, Aldactone. -Patient states has home diuretic medications just filled. -Neg 12L by discharge. -Daily weights at home, close f/u. Elevated Troponin: -Troponin 23.8 on admission, 28.7 -> 36.8 -> 25.8. -Echo as above, ECG w/ normal sinus rhythm, left bundle branch block. -Mild elevation most likely secondary to type II demand ischemia from CHF exacerbation. Chest Pain: -Given reproduction of pain w/ palpation and heavy labored breathing prior to arrival most likely MSK related. -Improved w/ Tylenol. T2DM, uncontrolled: -Renewed patient's Trulicity and Humolog upon discharge at patient's request. Total Time Total Time Spent Total Time Spent (In Minutes): Please see attending attestation. Discharge Plan Discharge Items Patient Disposition: Home - Self-Care Reason For Visit: ACUTE ON CHRON RESP FAIL, ACUTE ON CHRON CHF Discharge Diagnosis: CHF exacerbation Activity: Per Instructions section Non-emergency contact: Primary Care Provider and Fruit Raiser Call non-emergency contact if: your symptoms worsen, your pain is worsening and your temperature is above 101 Follow-up/Referrals: Millicent Martinez PA-C [Primary Care Provider] - 11/15/21 11:00 am (with eleni washburn pa-c ) Diet: Carb Consistent or DM2, Heart Healthy and Low Sodium (2gm) Addtl Attending Provider Instructions: A discharge summary will be sent to your primary care physician to ensure continuity of care. You came into the hospital for shortness of breath due to fluid overload from chronic heart failure. When you first came in you had a lot of fluid seen in your lungs on chest X-ray. You were given a good amount of IV Lasix and saw a good amount of fluid urinated out. As a result your breathing improved and you were able to come off the BiPAP and back onto your home O2 requirement of 5L. To ensure this does not happen again please be sure to keep taking your water pill medication at home when scheduled. Please also make sure that you keep to a low sodium diet to decrease water retention in your body. Your sugars were also elevated while you were in the hospital so please be sure to keep to your home regimen of insulin and Trulicity. A refill of these medications will be sent to your pharmacy. Again, please monitor daily weights - if you have a change of more than 2 lbs over a 24 hour period then please refrain from sodium containing food, limit the amount of water you intake to 1-2 glasses and contact your primary care or cardiology office. Follow-up: * You should be seen by your primary physician within the next week. * You should be seen by cardiology within the next few weeks. Medications: Your medication list has been reviewed and reconciled upon discharge to ensure accuracy and continuity of care. An updated list of all your medications is included with your hospital discharge paperwork. Please review this list closely, and make note of any changes. A prescription for Trulicity and Humalog were sent to your pharmacy since you said you had run out recently. Take your medications as instructed; do not skip a dose of your medicines. Make sure all of your doctors know every medicine you are taking (including [id number] medicines, vitamins, and supplements). let your primary care provider know before taking any new medicines because some of these may interact with your current medications, or may make your symptoms worse. CONTACT YOUR PRIMARY CARE PROVIDER if you experience any of the following: * Fevers or shaking chills * Shortness of breath not relieved by inhalers, fainting * Sudden abdominal distension not relieved by catheterization. * Difficulty following your treatment plan, or difficulty taking medications CALL 911 OR GO TO THE EMERGENCY DEPARTMENT if you experience any of the following: * Sudden, severe abdominal pain or nausea/vomiting * Severe chest pain, or chest pain that radiates (moves) to your jaw or arm * Sudden, severe shortness of breath or difficulty breathing It was was our pleasure taking care of you here at [facility] . Thank you for allowing us to participate in your care. Addtl Commercial Lines Manager Provider Instructions: NOTICE OF NECESSITY OF CAREGIVER: 11/03/2021 To whom it may concern, This is to notify that Alok Huff will be receiving at home care from [facility] for assistance with medical needs. She will need to assist h im with everyday tasks and ensuring proper medication intake. Thank you, Sami Centeno D.O. [facility] Pending Studies at Discharge: No Stand-Alone Forms: My [facility], Smoking Cessation Medications and DC Order Prescriptions: Continued budesonide-formoterol [Symbicort] 160-4.5 mcg/actuation HFA aerosol inhaler 2 inh inhalation BID Qty: 10.2 2RF Rx Instructions: 2 puffs twice per day. Rinse mouth after each use albuterol sulfate 90 mcg/actuation HFA aerosol inhaler 1 inh inhalation QID Qty: 8.5 2RF Entresto 97-103 mg tablet 1 tab PO BID Qty: 60 5RF metoprolol succinate 100 mg tablet extended release 24 hr 100 mg PO BID Qty: 60 5RF albuterol sulfate 2.5 mg /3 mL (0.083 %) solution for nebulization 2.5 mg inhalation Q6H Qty: 15 2RF Rx Instructions: Use every 6 hours as needed with nebulizer nitroglycerin [Nitrostat] 0.4 mg tablet, sublingual 0.4 mg sublingual UD PRN (Reason: Chest Pain) cholecalciferol (vitamin D3) [Vitamin D3] 50 mcg (2,000 unit) Tablet 100 mcg PO BID aspirin [Neisha Low Dose Aspirin] 81 mg tablet,delayed release (DR/EC) 81 mg PO QAM magnesium oxide 400 mg (241.3 mg magnesium) tablet 400 mg PO QAM famotidine 20 mg tablet 20 mg PO QAM esomeprazole magnesium 40 mg capsule,delayed release(DR/EC) 40 mg PO BID spironolactone [Aldactone] 25 mg tablet 75 mg PO UD Rx Instructions: 2 in the morning and 1 tablet at night Humalog Mix 50-50 KwikPen 100 unit/mL (50-50) insulin pen 40 unit subcut BID 30 Days Qty: 24 5RF Rx Instructions: 40 units inj twice per day. Trulicity 4.5 mg/0.5 mL pen injector 4.5 mg subcut .WEEKLY Qty: 2 0RF Rx Instructions: Please dispense 12 pens with 1 refill Discharge Orders: Discharge Order (Routine); Ordered 11/03/21 Ordered By: Sami Centeno Admission Data Admit Date/Time: 10/31/21 00:23 Attending Provider: Amalia Mosley Admit Provider: Noé Jaquez Primary Care Provider: Millicent Martinez Other Providers: Noé Jaquez ; Shon Hernandez Other Interventions: Discharge Summary Assessment (RN) Last Done: 11/03/21 15:46 Supervising Physician Co-Signing Physician Notes Resident Physician Supervision Note: I independently interviewed and examined the patient and verified the caraballo history and physical, reviewed labs and image studies and agree with resident findings and care plan. Resident Activity Tracking Resident Involvement: Resident Care Provided Care Provided: Adult Hospital Medicine
[2021-11-03] MEDS ORDERED: LANTUS PER UNIT CHARGE SQ SCH (16:00)
== END 2021-11-03 16:11 | disposition home or self-care (01) | DRG 291 ==
LOC: ED 22:30 → 2S 10-31 00:23 → SUATTDRO 10-31 00:23 → 2S 10-31 01:57

== ENCOUNTER 2022-02-27 07:12 | Inpatient (IN) ==
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
[2022-02-27 07:57] LABS: Basophils # (auto) 0.03 K/uL (0-0.2); Basophils % (auto) 0.4 %; Eosinophils # (auto) 0.19 K/uL (0-0.50); Eosinophils % (auto) 2.2 %; Hematocrit (blood only) 45.3 % (40.1-51.0); Hemoglobin 15.2 g/dl (14.0-18.0); Immature Granulocytes # (auto) 0.03 K/uL (0.00-0.02); Immature Granulocytes % (auto) 0.4 %; Lymphocytes # (auto) 2.15 K/uL (1.2-3.4); Lymphocytes % (auto) 25.1 %; Mean Corpuscular Hemoglobin 28.7 pg (25.0-34.0); Mean Corpuscular Hgb Conc 33.6 g/dL (32.0-36.0); Mean Corpuscular Volume 85.5 fL (80.0-100.0); Mean Platelet Volume 10.5 fL (9.4-12.4); Monocytes # (auto) 0.65 K/uL (0.24-0.82); Monocytes % (auto) 7.6 %; Neutrophils # (auto) 5.51 K/uL (1.4-6.5); Neutrophils % (auto) 64.3 %; Platelet Count 174 K/uL (130-400); RDW Coefficient of Variation 13.8 % (11.5-14.5); RDW Standard Deviation 43.1 fL (36.4-46.3); White Blood Count 8.56 K/ul (4.8-10.8)
--- NOTE | 2022-02-27 08:12 | XRay Report ---
XR chest 1V portable HISTORY: 46 years-old Male Chest Pain. Acute chest pain COMPARISON: Chest radiograph 12/02/2021 TECHNIQUE: AP view of the chest FINDINGS: Cardiac silhouette is enlarged. Pulmonary vascular congestion with interstitial coarsening. Left subc lavian pacer/AICD. No pneumothorax. Small pleural effusions with bibasilar opacities. Degenerative ch anges of the shoulders and spine. IMPRESSION: 1. Cardiomegaly with pulmonary edema. 2. Small pleural effusions with mild bibasilar consolidation. ACT 112: Negative or not required by law. The above report was generated using voice recognition software. It may contain grammatical, syntax o r spelling errors. Electronically signed by: Sony Irby M.D. 02/27/2022 8:10 AM
[2022-02-27] MEDS ORDERED: FUROSEMIDE 40 MG/4 ML VIAL IV ONE (08:16)
[2022-02-27 08:37] LABS: Albumin Level 3.6 gm/dl (3.4-5.0); BUN Creatinine Ratio 12.2 (10-20); Bilirubin Direct 0.1 mg/dl (0-0.2); Bilirubin,Total 0.7 mg/dl (0.2-1.0); Calcium 8.5 mg/dl (8.5-10.1); Creatinine Clr Calc Pharmacy 155.8 ml/min; Est GFR (African American) 119.1 ml/min; Est GFR (Non-African American) 102.8 ml/min; Magnesium 1.6 mg/dl (1.7-2.4); Potassium 3.9 mmol/L (3.5-5.1); Total Protein 7.3 gm/dl (6.0-8.3); Troponin I High Sensitivity 37.2 pg/ml (0-20)
[2022-02-27 08:39] LABS: Influenza A virus by PCR Negative (Neg); Influenza B virus by PCR Negative (Neg); RSV by PCR Negative (Neg); SARS CoV2 RNA(COVID-19) Ceph NEGATIVE (Negative)
[2022-02-27] MEDS ORDERED: GLUCOSE 10 TAB/TUBE PO PRN (10:34)
[2022-02-27] MEDS ORDERED: DEXTROSE 50% 50 ML SYRINGE IV PRN (10:34)
[2022-02-27] MEDS ORDERED: GLUCAGON FOR INJ 1 MG VIAL SQ PRN (10:34)
[2022-02-27] MEDS ORDERED: PHARMACY GLYCEMIC MGMT CONSULT PRN (10:34)
[2022-02-27] MEDS ORDERED: CARBOHYDRATES FOR HYPOGLYCEMIA PO PRN (10:34)
[2022-02-27] MEDS ORDERED: GLUCOSE 40% GEL 15 GM TUBE PO PRN (10:34)
[2022-02-27] MEDS ORDERED: NITROGLYCERIN SL 0.4 MG/TAB TAB SL PRN (10:48)
[2022-02-27] MEDS ORDERED: SPIRONOLACTONE 25 MG TAB PO SCH ×2 (11:00→21:00)
--- NOTE | 2022-02-27 11:02 | History & Physical Report ---
Date of Service February 27, 2022 Assessment & Plan (1) Acute exacerbation of CHF (congestive heart failure): Plan: Unfortunate 46-year-old male presenting with acute on chronic CHF exacerbation requiring inpatient management for aggressive diuresis, blood pressure control, and close hemodynamic monitoring in the patient with an EF of 15 to 20%. * Presenting with ongoing shortness of breath last week. Chest x-ray concerning for diffuse pulmonary edema. * Responded well to initial 40 mg IV Lasix. We will up the dose to 80 mg twice daily. Patient currently takes 80 mg p.o. twice daily at home. * Will add BiPAP if needed. He admits that he has not been using his BiPAP at home secondary to malfunction of the machine. This certainly could be contributing to his presenting symptoms today. * Will add ultrasound of the RIGHT lower extremity to rule out DVT. Patient admits that he typically develops RIGHT greater than left peripheral edema in the setting of CHF. (2) Elevated troponin: Plan: * Likely in the setting of demand ischemia in the patient with acute on chronic CHF presenting with significant hypertension. * EKG without ST changes or T wave abnormalities otherwise. * No complaints of chest pain. * Will trend troponins. * Judicious blood pressure control. (3) Chronic respiratory failure: Plan: * Supplemental O2 as needed. * BiPAP at night. (4) COPD (chronic obstructive pulmonary disease): Plan: * Continue home inhalers as tolerated. (5) Combined systolic and diastolic heart failure: Plan: * As above (6) NICM (nonischemic cardiomyopathy): Plan: * As above (7) Hypertension: Plan: * Likely degree of noncompliance. * Patient with known history of receiving medications in the hospital and precipitously drop in his blood pressure. * Will add his metoprolol at half dose and the lowest dose of Entresto to start. * Can work on titrating up his antihypertensive throughout his hospitalization. (8) Diabetes mellitus type II, uncontrolled: Plan: * To be placed on insulin sliding scale * Appreciate pharmacy's input. (9) Hemoptysis: Plan: * Appears to be a chronic situation and has been thought to be related to pulmonary vascular congestion in the setting of pulmonary edema. History of Present Illness Chief Complaint: Shortness of Breath Primary Care Provider: Gosia Becker MD Patient is a 46-year-old male with a significant past medical history including hypertension, hyperlipidemia, heart failure with reduced ejection fraction, nonischemic cardiomyopathy with an EF of 15 to 20%, poorly controlled diabetes, chronic hemoptysis, and medication noncompliance. Patient presented to the emergency department today with a chief complaint of shortness of breath. He initially reports that the symptoms developed abruptly, but his friend reports that she has noticed he has been short of breath over the last week. He has had to turn his baseline 5 L nasal cannula to "full". He reports he is experiencing more symptoms in the past. He denies any coughs or fevers. He denies any jose hemoptysis. He denies any chest pain, palpitations, headaches, dizziness, lightheadedness, nausea, vomiting, or abdominal discomfort. Evaluation in the emergency department, the patient was noted to be markedly hypertensive. Chest x-ray concerning for pulmonary edema. Troponins elevated. Responded well to IV Lasix treatment. Patient reports that he had taken his morning doses of medications. Allergies Allergy/AdvReac Type Severity Reaction Status Date / Time ceftriaxone Allergy Severe SHORTNESS Verified 12/27/21 10:43 OF BREATH lidocaine Allergy Severe SHORTNESS Verified 12/27/21 10:43 OF BREATH, diaphoretic, hives procaine Allergy Severe SHORTNESS Verified 12/27/21 10:43 OF BREATH, diaphoretic, hives amoxicillin Allergy Intermediate HIVES/FACIAL Verified 12/27/21 10:43 SWELLING clavulanic acid Allergy Intermediate HIVES/FACIAL Verified 12/27/21 10:43 SWELLING lisinopril Allergy Intermediate HIVES Verified 12/27/21 10:43 shellfish derived Allergy Unknown Verified 12/27/21 10:43 acetaminophen AdvReac Mild NAUSEA Verified 12/27/21 10:43 albuterol AdvReac Mild proair Verified 12/27/21 10:43 "trouble taking breaths" Fish Containing Products AdvReac Unknown Unknown Verified 12/27/21 10:43 Home Medications Medication Instructions Recorded Confirmed Type nitroglycerin 0.4 mg sublingual 0.4 mg sublingual UD PRN Chest Pain 04/24/19 02/27/22 History tablet (Nitrostat) albuterol sulfate 90 mcg/actuation 1 inh inhalation QID #8.5 grams 12/09/20 02/27/22 Rx aerosol inhaler metoprolol succinate 100 mg 100 mg PO BID #60 tabs 02/21/21 02/27/22 Rx tablet,extended release 24 hr sacubitril 97 mg-valsartan 103 mg 1 tab PO BID #60 tabs 02/21/21 02/27/22 Rx tablet (Entresto) Symbicort 160 mcg-4.5 2 inh inhalation BID #10.2 grams 05/04/21 02/27/22 Rx mcg/actuation HFA aerosol inhaler (budesonide-formoterol) aspirin 81 mg tablet,delayed 81 mg PO QAM 06/16/21 02/27/22 History release (Neisha Low Dose Aspirin) famotidine 20 mg tablet 20 mg PO QAM 06/16/21 02/27/22 History magnesium oxide 400 mg (241.3 mg 400 mg PO QAM 06/16/21 02/27/22 History magnesium) tablet esomeprazole magnesium 40 mg 40 mg PO BID 08/31/21 02/27/22 History capsule,delayed release spironolactone 25 mg tablet See Rx Instructions .Route .COMPLEX 08/31/21 02/27/22 History (Aldactone) insulin lispro protamine-lispro 40 unit (0.4 mL) subcut BID 30 11/03/21 02/27/22 Rx 100 unit/mL (50-50) subcutaneous days #24 mL pen (Humalog Mix 50-50 KwikPen) mupirocin 2 % topical ointment 1 applic topical TID Skin 11/25/21 02/27/22 Rx Infection #22 grams albuterol sulfate 2.5 mg/3 mL 2.5 mg inhalation Q6H 12/02/21 02/27/22 History (0.083 %) solution for nebulization dulaglutide 3 mg/0.5 mL 3 mg subcut WK 12/02/21 02/27/22 History subcutaneous pen injector cholecalciferol (vitamin D3) 50 150 mcg PO DAILY 12/27/21 02/27/22 History mcg (2,000 unit) tablet (Vitamin D3) pen needle, diabetic 31 gauge x #100 ea 12/27/21 12/27/21 Rx /16" (Comfort EZ Pen Carrington) torsemide 20 mg tablet 20 mg PO .COMPLEX 12/27/21 02/27/22 History Past Med/Surg History Medical History Abscess of multiple sites Bacteremia Chronic respiratory failure Dilatation of thoracic aorta Fatty liver Hearing loss of both ears Housing instability, currently housed, at risk for homelessness Hx of local infection of skin and subcutaneous tissue Iliac aneurysm Lung nodule NICM (nonischemic cardiomyopathy) Pt admitted for elective ICD. Underwent procedure without any complications monitored over night and discharged home. 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 Heart disease Myocardial infarction Mother , age 67 of a ruptured neck vessel Sudden Other Depression Lung disease No pertinent family history Denies family history of Ovarian cancer Prostate cancer Breast cancer Colorectal cancer Social History Smoking Status: Current some day smoker Tobacco Type: Cigarettes Age Started Using Tobacco: 14; Age Quit Using Tobacco: 18; Cigarettes Per Day: 40; Second Hand Exposure: No; Do You Dip or Chew Tobacco: No; Hx Alcohol Use: No Hx Substance Use: No Preferred Language: Lithuanian Communication Ability: Effective Visual Impairment: No Limitations Hearing Ability: Normal Process Pumper Required: No Beliefs That Will Affect Care: None marital status: Current Living Situation: Spouse current occupational status: unemployed How many Children do You have: 0 Other Information That Helps Us Care for You: No Feels Safe at Home: Yes Safety Concerns: Feels Safe At This Time Childhood Exposure to Second-Hand Smoke: Yes Dental Care, Regularly: Yes Physical Activity Frequency: Does not Exercise Assistive Devices: BiPap, Glasses, Hearing Aid - Bilateral, Oxygen - Continuous and Walker Review of Systems Review of Systems: A complete 10 point review of systems was reviewed with the patient with pertinent positives and negatives as per history of present illness. All else were negative. Physical Exam Physical Exam: VITAL SIGNS - Vital signs and nursing notes were reviewed. GENERAL - 46-year-old male appearing his stated age who is in no acute distress. Communicates well with provider and answers questions appropriately. HEAD - NC/AT. EYES - PERRL with EOMI bilaterally. Sclera anicteric. EARS - No deformities of external structures noted on gross examination bilaterally. NOSE - Midline and without cyanosis. No epistaxis or purulent drainage noted. MOUTH/OROPHARYNX - Without perioral cyanosis. Buccal mucosa pink and moist. NECK - Neck with FROM. Supple to palpation. LUNGS - Able to speak in complete sentences. Distant breath sounds. CARDIAC - RRR with S1/S2. No murmur, rubs, or gallops appreciated. ABDOMEN - Abdominal contour obese without pulsations or visible masses. BS normoactive all four quadrants. No tenderness, palpable masses, hepatosplenomegaly, or ascites noted. EXTREMITIES - No clubbing or peripheral cyanosis. Moderate bilateral with RIGHT greater than left pretibial edema. +3/5 radial and dorsalis pedis pulses palpated throughout. +5/5 strength noted in UE/LE bilaterally. NEUROLOGIC - Cranial nerves II through XII grossly intact. PSYCH - A&Ox3 and cooperates fully with examiner. Pt is very pleasant and interacts well with examiner. Results & Data Results & Data ([facility]) Vital Signs (Past 12 Hours) Vital Signs Temp Pulse Resp BP Pulse Ox O2 Del Method O2 Flow Rate 02/27/22 09:00 98 H 23 02/27/22 09:00 173/125 H 02/27/22 08:00 100 H 29 H 96 02/27/22 08:00 173/118 H 02/27/22 07:54 118 H 15 95 02/27/22 07:54 158/125 H 02/27/22 07:12 Nasal Cannula 5 02/27/22 07:16 36.0 C L 118 H 26 H 151/88 H 94 Nasal Cannula 15 ECG Additional Comments: Sinus tachycardia at [address] or T wave changes noted. QTc 475 ms. Code Status & VTE Plan VTE Prophylaxis Plan VTE Prophylaxis will be ordered: Yes Supervising Physician Co-Signing Physician Notes I personally saw and examined the patient. I verified all caraballo points and agree with Edouard Simpson PA-C with the following exceptions and/or additions: 46-year-old male with nonischemic cardiomyopathy and chronic heart failure with reduced ejection fraction presents with shortness of breath. Bashir is well- known to this service with recurrent hospitalizations with similar presentation of shortness of breath and hemoptysis likely due to medication/diet noncompliance. He feels this episode is similar to previous episodes. Similar chest pain, shortness of breath and hemoptysis. Patient usually responds very quickly with intravenous Lasix and his blood pressure usually drops too much on his usual cardiomyopathy medications. O/E HS1+2 (distant) RRR, no murmurs, Respiratory distress, using accessory muscles, unable to complete full sentences, Chest; absent breath sounds at bases, reduced elsewhere, no crackles or wheezing. Abdomen distended, soft, nontender. 3+ pitting pedal edema bilaterally equal to abdomen A/P Acute on chronic heart failure with reduced ejection fraction -responded well to Lasix 80 mg IV twice daily last admission therefore will start on this dose. Unclear if he really requires such high doses of spironolactone and will utilize similar doses to last admission with 50 mg p.o. in the morning and 25 mg at night. Beta-mansoor as below. Nonischemic cardiomyopathy -continue metoprolol succinate 100 mg p.o. twice daily, will reduce his usual Entresto dose as his blood pressure usually drops precipitously with restarting his usual medication with concerns for medical compliance as an outpatient. However this likely can be uptitrated during his admission. Hemoptysis - multiple similar occurrences due to pulmonary edema. We will hold anticoagulation for first day of admission but consider after this as hemoptysis resolved. T2DM - consult pharmacy for glycemic control. Usually requires much more insulin than his prescribed dose of 80 total units as outpatient -> consider increasing this on discharge PG Care Time/CCT Total # of Minutes Spent Total Time Spent with Patient: Total time spent is greater than 50% in coordination of care (as documented) at patient's floor/unit and/or counseling patient: Coding Level of Care Code 15062 INT INP/OBS CARE 375MIN Diagnoses Acute exacerbation of CHF (congestive heart failure) I50.9 Elevated troponin R77.8 Chronic respiratory failure J96.10 COPD (chronic obstructive pulmonary disease) J44.9 COPD type: unspecified COPD Combined systolic and diastolic heart failure I50.41 Heart failure chronicity: acute NICM (nonischemic cardiomyopathy) I42.8 Hypertension I10 Hypertension type: unspecified Diabetes mellitus type II, uncontrolled E11.65 Glycemic state: with hyperglycemia Hemoptysis R04.2 Time Spent (min) 45 (1) Diabetes mellitus type II, uncontrolled Glycemic state: with hyperglycemia Qualified Code(s): E11.65 - Type 2 diabetes mellitus with hyperglycemia (2) Combined systolic and diastolic heart failure Heart failure chronicity: acute Qualified Code(s): I50.41 - Acute combined systolic (congestive) and diastolic (congestive) heart failure (3) COPD (chronic obstructive pulmonary disease) COPD type: unspecified COPD Qualified Code(s): J44.9 - Chronic obstructive pulmonary disease, unspecified (4) Hypertension Hypertension type: unspecified Qualified Code(s): I10 - Essential (primary) hypertension
[2022-02-27] MEDS ORDERED: TORSEMIDE 20 MG TAB PO SCH ×2 (11:30→21:00)
[2022-02-27] MEDS ORDERED: SPIRONOLACTONE 100 MG TAB PO SCH (11:30)
[2022-02-27] MEDS ORDERED: LANTUS PER UNIT CHARGE SQ SCH ×3 (12:00→21:00)
[2022-02-27] MEDS ORDERED: LANTUS PER UNIT CHARGE SQ ONE (12:00)
[2022-02-27] MEDS ORDERED: ALBUTEROL 0.083% NEBU SOLN 3 ML VIAL INH SCH (12:00)
[2022-02-27] MEDS: ALBUTEROL HFA 8 GM INHALER INH SCH ×3 (12:02→19:20)
--- NOTE | 2022-02-27 12:08 | Pharmacy Report ---
Pharmacy Glycemic Short Note 2 - Date of Service February 27, 2022 - Glycemic Short BSG Results (Last 24 hours): 02/27/22 02/27/22 07:40 11:41 Glucose 388 H* POC Glucose 357 H* OUTPATIENT ANTIDIABETIC REGIMEN: * Humalog mix 40 units bid, dulaglutide * A1c 11.3% 10/2021 ASSESSMENT: * 46 year old male admitted with worsening shortness of breath. PMHx significant for type 2 diabetes, htn, HF. Pharmacy consulted for glycemic management. BSGs in upper 300s on this morning, diet ordered * Patient known to glycemic service from other admissions, most recently 10/2021. During that admission he was requiring ~150 units of insulin/day and BSGs still in 200s, of which 60 units were basal insulin * Per notes, patient took Humalog dose this morning of 40 units - will give an additional 30 units x 1 now (~50 units of basal for this AM). Plan to have scale for HS for Lantus in case BSGs remain elevated PLAN FOR INPATIENT GLYCEMIC CONTROL: * Hold outpatient oral diabetes medications * Basal insulin * Lantus 30 units x 1 * Lantus 10-30 units HS * Bolus insulin * NovoLog per scale ACHS or Q6hrs while NPO * Goal Range: Low 110 mg/dL - High 140 mg/dL * Correction Factor: 12 mg/dL/unit * Nutritional / Prandial insulin per carb ratio of 1 unit per 4 grams CHO consumed
[2022-02-27] MEDS ORDERED: ALBUTEROL 0.083% NEBU SOLN 3 ML VIAL INH PRN (12:24)
--- NOTE | 2022-02-27 13:53 | Ultrasound Report ---
US venous doppler LE RT HISTORY: 46 years-old Male RLE swelling acute pain and swelling of the right lower extremity COMPARISON: March 11, 2021 TECHNIQUE: Multiple real-time sonographic images of the right lower extremity deep venous structures were obtained assessing grayscale appearance, color and spectral flow. FINDINGS: Normal flow, compressibility, phasicity and augmentation. Limited exam secondary to patient condition and body habitus. IMPRESSION: No sonographic evidence of deep venous thrombosis. ACT 112: Negative or not required by law. The above report was generated using voice recognition software. It may contain grammatical, syntax o r spelling errors. Electronically signed by: Sony Irby M.D. 02/27/2022 1:51 PM
[2022-02-27] MEDS ORDERED: HEPARIN SOD 5,000 UNIT/0.5 ML VIAL SQ SCH (14:00)
[2022-02-27] MEDS ORDERED: MUPIROCIN 2% OINT 22 GM TUBE TOP SCH (14:00)
[2022-02-27] MEDS: INSULIN ASPART PER UNIT SC SCH ×3 (14:17→20:29)
[2022-02-27] MEDS ORDERED: FUROSEMIDE 40 MG/4 ML VIAL IV STA (16:10)
[2022-02-27] MEDS ORDERED: MAGNESIUM SULFATE / D5W 1 GM/100 ML BAG IV ONE (16:11)
[2022-02-27] MEDS ORDERED: MAGNESIUM OXIDE 400 MG TAB PO STA (16:11)
[2022-02-27] MEDS: SPIRONOLACTONE 25 MG TAB PO SCH (20:30)
[2022-02-27] MEDS: PANTOprazole 40 MG TAB PO SCH (20:30)
[2022-02-27] MEDS: METOPROLOL SUCC 50MG EXT REL TAB PO SCH (20:31)
[2022-02-27] MEDS: VALSARTAN/SACUBITRIL 26/24MG TAB PO SCH (20:31)
[2022-02-27] MEDS: FUROSEMIDE 40 MG/4 ML VIAL IV SCH (20:32)
[2022-02-27] MEDS ORDERED: METOPROLOL SUCC 50MG EXT REL TAB PO SCH (21:00)
[2022-02-28] MEDS ORDERED: INSULIN ASPART PER UNIT SC SCH
[2022-02-28] MEDS: INSULIN ASPART PER UNIT SC SCH ×6 (00:23→21:04)
--- NOTE | 2022-02-28 05:49 | Electrocardiogram Report ---
Test Reason : Blood Pressure : / mmHG Vent. Rate : 115 BPM Atrial Rate : 115 BPM P-R Int : 158 ms QRS Dur : 112 ms QT Int : 344 ms P-R-T Axes : 012 -48 093 degrees QTc Int : 475 ms Poor data quality, interpretation may be adversely affected Sinus tachycardia Possible Left atrial enlargement Left axis deviation Left ventricular hypertrophy with repolarization abnormality Cannot rule out Septal infarct , age undetermined Abnormal ECG When compared with ECG of 02-NOV-2021 06:23, Septal infarct is now Present T wave inversion no longer evident in Inferolateral leads Confirmed by Abraham Rosen ([id number]) on 02/28/2022 5:49:21 AM Referred By: SELF Confirmed By:Abraham Rosen
--- NOTE | 2022-02-28 06:11 | Electrocardiogram Report ---
Test Reason : Blood Pressure : / mmHG Vent. Rate : 104 BPM Atrial Rate : 104 BPM P-R Int : 166 ms QRS Dur : 116 ms QT Int : 370 ms P-R-T Axes : 031 -28 110 degrees QTc Int : 486 ms Sinus tachycardia Possible Left atrial enlargement T wave abnormality, consider lateral ischemia Abnormal ECG When compared with ECG of 27-FEB-2022 07:32, Minimal criteria for Septal infarct are no longer Present Confirmed by Abraham Rosen ([id number]) on 02/28/2022 6:11:02 AM Referred By: REFERRED SELF Confirmed By:Abraham Rosen
[2022-02-28 06:20] LABS: Basophils # (auto) 0.03 K/uL (0-0.2); Basophils % (auto) 0.4 %; Eosinophils # (auto) 0.27 K/uL (0-0.50); Eosinophils % (auto) 3.2 %; Hematocrit (blood only) 43.3 % (40.1-51.0); Hemoglobin 14.4 g/dl (14.0-18.0); Immature Granulocytes # (auto) 0.04 K/uL (0.00-0.02); Immature Granulocytes % (auto) 0.5 %; Lymphocytes # (auto) 2.19 K/uL (1.2-3.4); Lymphocytes % (auto) 25.6 %; Mean Corpuscular Hemoglobin 28.6 pg (25.0-34.0); Mean Corpuscular Hgb Conc 33.3 g/dL (32.0-36.0); Mean Corpuscular Volume 85.9 fL (80.0-100.0); Mean Platelet Volume 10.4 fL (9.4-12.4); Monocytes # (auto) 0.69 K/uL (0.24-0.82); Monocytes % (auto) 8.1 %; Neutrophils # (auto) 5.35 K/uL (1.4-6.5); Neutrophils % (auto) 62.2 %; Platelet Count 168 K/uL (130-400); RDW Coefficient of Variation 13.7 % (11.5-14.5); RDW Standard Deviation 42.7 fL (36.4-46.3); Red Blood Count 5.04 M/uL (4.63-6.08); White Blood Count 8.57 K/ul (4.8-10.8)
[2022-02-28 06:39] LABS: Estimated Average Glucose 352 mg/dl; Hemoglobin A1C 13.9 % (4.5-5.6)
[2022-02-28 06:59] LABS: Albumin Level 3.3 gm/dl (3.4-5.0); BUN Creatinine Ratio 12.9 (10-20); Bilirubin Direct 0.1 mg/dl (0-0.2); Bilirubin,Total 0.8 mg/dl (0.2-1.0); Creatinine Clr Calc Pharmacy 161.3 ml/min; Est GFR (Non-African American) 105.2 ml/min; Globulin 3.2 gm/dl (2.5-4.0); Magnesium 1.8 mg/dl (1.7-2.4); Potassium 3.5 mmol/L (3.5-5.1); Total Protein 6.5 gm/dl (6.0-8.3)
[2022-02-28] MEDS: ALBUTEROL HFA 8 GM INHALER INH SCH ×4 (07:29→19:43)
[2022-02-28] MEDS ORDERED: POTASSIUM CHLORIDE CRTAB 20 MEQ TABCR PO STA (08:38)
--- NOTE | 2022-02-28 08:38 | Progress Note ---
Date of Service February 28, 2022 Assessment & Plan (1) Acute exacerbation of CHF (congestive heart failure): Plan: Unfortunate 46-year-old male presenting with acute on chronic CHF exacerbation requiring inpatient management for aggressive diuresis, blood pressure control, and close hemodynamic monitoring in the patient with an EF of 15 to 20%. * Negative 3 L at this point * Continue with Lasix 80 mg IV BID for now. Monitor renal function and replace lytes as needed. * Continue to use BiPAP HS. * US of RLE w/o findings of DVT. (2) Elevated troponin: Plan: * Likely in the setting of demand ischemia in the patient with acute on chronic CHF presenting with significant hypertension. * EKG without ST changes or T wave abnormalities otherwise. * No complaints of chest pain. * Troponins have peaked. * Added his home Rx at a reduced dose as there is concern w/ medication compliance w/ previous admissions. * BP much better controlled through the night. (3) Chronic respiratory failure: Plan: * Supplemental O2 as needed. * BiPAP at night. (4) COPD (chronic obstructive pulmonary disease): Plan: * Continue home inhalers as tolerated. COPD type: unspecified COPD Qualified Code(s): J44.9 - Chronic obstructive pulmonary disease, unspecified (5) Combined systolic and diastolic heart failure: Plan: * As above Heart failure chronicity: acute Qualified Code(s): I50.41 - Acute combined systolic (congestive) and diastolic (congestive) heart failure (6) NICM (nonischemic cardiomyopathy): Plan: * As above (7) Hypertension: Plan: * Likely degree of noncompliance. * Patient with known history of receiving medications in the hospital and precipitously drop in his blood pressure. * Will add his metoprolol at half dose and the lowest dose of Entresto to start. * Can work on titrating up his antihypertensive throughout his hospitalization. Hypertension type: unspecified Qualified Code(s): I10 - Essential (primary) hypertension (8) Diabetes mellitus type II, uncontrolled: Plan: * To be placed on insulin sliding scale * Appreciate pharmacy's input. * A1c 13.9 concerning again for patient non-compliance. Glycemic state: with hyperglycemia Qualified Code(s): E11.65 - Type 2 diabetes mellitus with hyperglycemia (9) Hemoptysis: Plan: * Appears to be a chronic situation and has been thought to be related to pulmonary vascular congestion in the setting of pulmonary edema. Admission and Anticipated Discharge Date Admission Date: February 27, 2022 Subjective Patient seen and evaluated at bedside today. He reports a restful night sleep utilizing the BiPAP machine. He states that his breathing is slightly improved. Patient is greater than 3 L negative at this point. He continues to complain of some intermittent occasional pain at the site of his AICD which is reproducible in nature. Otherwise, the patient offers no significant complaints Review of Systems Review of Systems: A complete 10 point review of systems was reviewed with the patient with pertinent positives and negatives as per history of present illness. All else were negative. Physical Exam Physical Exam: VITAL SIGNS - Vital signs and nursing notes were reviewed. GENERAL - 46-year-old male appearing his stated age who is in no acute distress. Communicates well with provider and answers questions appropriately. HEAD - NC/AT. LUNGS - Able to speak in complete sentences. Distant breath sounds. CARDIAC - RRR with S1/S2. No murmur, rubs, or gallops appreciated. Reproducible tenderness palpation across the anterior surface of the chest bilaterally ABDOMEN - Abdominal contour obese without pulsations or visible masses. BS normoactive all four quadrants. No tenderness, palpable masses, hepatospl enomegaly, or ascites noted. EXTREMITIES - No clubbing or peripheral cyanosis. Moderate bilateral with RIGHT greater than left pretibial edema. +3/5 radial and dorsalis pedis pulses palpated throughout. +5/5 strength noted in UE/LE bilaterally. NEUROLOGIC - Cranial nerves II through XII grossly intact. PSYCH - A&Ox3 and cooperates fully with examiner. Pt is very pleasant and interacts well with examiner. Results & Data ([facility]) Vital Signs (Past 12 Hours) Vital Signs Temp Pulse Pulse Resp BP Pulse Ox O2 Del Method 02/28/22 07:35 36.3 C L 72 17 97/65 L 98 Nasal Cannula 02/28/22 07:31 86 20 96 BiPAP 02/28/22 07:14 62 02/28/22 03:57 62 19 98 02/28/22 03:09 36.5 C 72 18 122/83 99 CPAP 02/28/22 00:00 99 H 02/28/22 00:32 36.4 C L 73 18 132/89 96 Nasal Cannula 02/28/22 00:52 73 24 99 01/16/23 23:32 36.5 C 86 18 124/77 96 Room Air 02/27/22 22:47 Nasal Cannula O2 Flow Rate 02/28/22 07:35 5 02/28/22 07:31 5 02/28/22 07:14 02/28/22 03:57 5 02/28/22 03:09 02/28/22 00:00 02/28/22 00:32 5 02/28/22 00:52 5 02/27/22 23:32 02/27/22 22:47 5 PG Care Time/CCT Total # of Minutes Spent Total Time Spent with Patient: Total time spent is greater than 50% in coordination of care (as documented) at patient's floor/unit and/or counseling patient: Coding Level of Care Code 59644 SUB INP/OBS CARE 350MIN Diagnoses Acute exacerbation of CHF (congestive heart failure) I50.9 Elevated troponin R77.8 Chronic respiratory failure J96.10 COPD (chronic obstructive pulmonary disease) J44.9 COPD type: unspecified COPD Combined systolic and diastolic heart failure I50.41 Heart failure chronicity: acute NICM (nonischemic cardiomyopathy) I42.8 Hypertension I10 Hypertension type: unspecified Diabetes mellitus type II, uncontrolled E11.65 Glycemic state: with hyperglycemia Hemoptysis R04.2 Time Spent (min) 35
[2022-02-28] MEDS: FUROSEMIDE 40 MG/4 ML VIAL IV SCH ×2 (08:59→21:03)
[2022-02-28] MEDS ORDERED: TORSEMIDE 20 MG TAB PO SCH (09:00)
[2022-02-28] MEDS: PANTOprazole 40 MG TAB PO SCH ×2 (09:00→21:05)
[2022-02-28] MEDS: LANTUS PER UNIT CHARGE SQ SCH ×2 (09:00→21:04)
[2022-02-28] MEDS: VALSARTAN/SACUBITRIL 26/24MG TAB PO SCH ×2 (09:00→21:07)
[2022-02-28] MEDS: CHOLECALCIFEROL 1,000 UNITS 25 MCG TAB PO SCH (09:00)
[2022-02-28] MEDS: MAGNESIUM OXIDE 400 MG TAB PO SCH (09:00)
[2022-02-28] MEDS: FAMOTIDINE 20 MG TAB PO SCH (09:00)
[2022-02-28] MEDS: SPIRONOLACTONE 25 MG TAB PO SCH ×2 (09:00→21:06)
[2022-02-28] MEDS: ASPIRIN 81 MG ECTAB PO SCH (09:00)
[2022-02-28] MEDS: METOPROLOL SUCC 50MG EXT REL TAB PO SCH ×2 (09:00→21:05)
[2022-02-28] MEDS ORDERED: SPIRONOLACTONE 100 MG TAB PO SCH (09:00)
[2022-02-28] MEDS: FLUTICASONE/VILANTEROL 100/25MCG 14 PUFFS/INHALER INH SCH (09:01)
--- NOTE | 2022-02-28 09:01 | Pharmacy Report ---
Pharmacy Glycemic Short Note 2 - Date of Service February 28, 2022 - Glycemic Short BSG Results (Last 24 hours): 02/27/22 02/27/22 02/27/22 11:41 16:36 20:18 Glucose POC Glucose 357 H* 216 H 119 H 02/28/22 02/28/22 02/28/22 00:03 03:13 05:37 Glucose 180 H POC Glucose 204 H 177 H 02/28/22 07:56 Glucose POC Glucose 200 H OUTPATIENT ANTIDIABETIC REGIMEN: * Humalog mix 40 units bid, dulaglutide * A1c 11.3% 10/2021 ASSESSMENT: 02/28/22: * BSGs labile yesterday, ranging 119-357 mg/dL, received 103 units of insulin (40 units of Lantus and 63 units of prandial/correctional Novolog) * Will utilize past inpatient data to guide therapy today (~weight-based stress of 3 dosing) * No change to stressors today 02/27/22: * 46 year old male admitted with worsening shortness of breath. PMHx significant for type 2 diabetes, htn, HF. Pharmacy consulted for glycemic management. BSGs in upper 300s on this morning, diet ordered * Patient known to glycemic service from other admissions, most recently 10/2021. During that admission he was requiring ~150 units of insulin/day and BSGs still in 200s, of which 60 units were basal insulin * Per notes, patient took Humalog dose this morning of 40 units - will give an additional 30 units x 1 now (~50 units of basal for this AM). Plan to have scale for HS for Lantus in case BSGs remain elevated PLAN FOR INPATIENT GLYCEMIC CONTROL: * Basal insulin * Lantus 25 units SC BID * Bolus insulin * NovoLog per scale ACHS or Q6hrs while NPO * Goal Range: Low 110 mg/dL - High 140 mg/dL * Correction Factor: 12 mg/dL/unit * Nutritional / Prandial insulin per carb ratio of 1 unit per 4 grams CHO consumed
[2022-03-01 06:13] LABS: Basophils # (auto) 0.04 K/uL (0-0.2); Basophils % (auto) 0.5 %; Eosinophils # (auto) 0.23 K/uL (0-0.50); Eosinophils % (auto) 2.7 %; Hematocrit (blood only) 45.7 % (40.1-51.0); Hemoglobin 15.2 g/dl (14.0-18.0); Immature Granulocytes # (auto) 0.04 K/uL (0.00-0.02); Immature Granulocytes % (auto) 0.5 %; Lymphocytes # (auto) 2.16 K/uL (1.2-3.4); Lymphocytes % (auto) 25.8 %; Mean Corpuscular Hgb Conc 33.3 g/dL (32.0-36.0); Mean Platelet Volume 10.6 fL (9.4-12.4); Monocytes # (auto) 0.69 K/uL (0.24-0.82); Monocytes % (auto) 8.2 %; Neutrophils # (auto) 5.22 K/uL (1.4-6.5); Neutrophils % (auto) 62.3 %; Platelet Count 167 K/uL (130-400); RDW Coefficient of Variation 13.8 % (11.5-14.5); RDW Standard Deviation 43.8 fL (36.4-46.3); Red Blood Count 5.25 M/uL (4.63-6.08); White Blood Count 8.38 K/ul (4.8-10.8)
[2022-03-01 06:38] LABS: Magnesium 1.8 mg/dl (1.7-2.4); Potassium 3.9 mmol/L (3.5-5.1)
[2022-03-01 06:51] LABS: BUN Creatinine Ratio 16.7 (10-20); Creatinine Clr Calc Pharmacy 162.4 ml/min; Est GFR (African American) 122.6 ml/min; Est GFR (Non-African American) 105.7 ml/min; Phosphorus 3.7 mg/dl (2.5-4.9)
[2022-03-01] MEDS: ALBUTEROL HFA 8 GM INHALER INH SCH ×2 (07:06→11:01)
[2022-03-01] MEDS ORDERED: LANTUS PER UNIT CHARGE SQ ONE ×2 (08:30→21:00)
--- NOTE | 2022-03-01 08:53 | Pharmacy Report ---
Pharmacy Glycemic Short Note 2 - Date of Service March 01, 2022 - Glycemic Short BSG Results (Last 24 hours): 02/28/22 02/28/22 02/28/22 11:50 16:16 20:41 Glucose POC Glucose 221 H 267 H 241 H 03/01/22 03/01/22 05:54 07:48 Glucose 310 H* POC Glucose 287 H OUTPATIENT ANTIDIABETIC REGIMEN: * Humalog mix 40 units bid, dulaglutide * A1c 11.3% 10/2021 ASSESSMENT: 03/01/22 * Post prandial BSG yesterday 200 - 267 mg/dl. FBSG today 310 mg/dl. Received a total of 137 units of insulin of which basal was 50 units. * Unclear if patient was snacking overnight so will adjust therapy cautiously. Will increase total daily of basal by 10% for a total of 60 units (35 units AM & 25 units PM) * Will tighten Novolog correction factor and monitor 02/28/22: * BSGs labile yesterday, ranging 119-357 mg/dL, received 103 units of insulin (40 units of Lantus and 63 units of prandial/correctional Novolog) * Will utilize past inpatient data to guide therapy today (~weight-based stress of 3 dosing) * No change to stressors today 02/27/22: * 46 year old male admitted with worsening shortness of breath. PMHx significant for type 2 diabetes, htn, HF. Pharmacy consulted for glycemic management. BSGs in upper 300s on this morning, diet ordered * Patient known to glycemic service from other admissions, most recently 10/2021. During that admission he was requiring ~150 units of insulin/day and BSGs still in 200s, of which 60 units were basal insulin * Per notes, patient took Humalog dose this morning of 40 units - will give an additional 30 units x 1 now (~50 units of basal for this AM). Plan to have sca le for HS for Lantus in case BSGs remain elevated PLAN FOR INPATIENT GLYCEMIC CONTROL: * Basal insulin * Lantus 35 units SC x 1 AM & 25 units SC x 1 PM * Bolus insulin * NovoLog per scale ACHS or Q6hrs while NPO * Goal Range: Low 110 mg/dL - High 140 mg/dL * Correction Factor: 10 mg/dL/unit * Nutritional / Prandial insulin per carb ratio of 1 unit per 4 grams CHO consumed
[2022-03-01] MEDS: INSULIN ASPART PER UNIT SC SCH ×2 (08:58→12:49)
[2022-03-01] MEDS: VALSARTAN/SACUBITRIL 26/24MG TAB PO SCH (09:00)
[2022-03-01] MEDS: PANTOprazole 40 MG TAB PO SCH (09:00)
[2022-03-01] MEDS: METOPROLOL SUCC 50MG EXT REL TAB PO SCH (09:00)
[2022-03-01] MEDS: MAGNESIUM OXIDE 400 MG TAB PO SCH (09:00)
[2022-03-01] MEDS: FAMOTIDINE 20 MG TAB PO SCH (09:00)
[2022-03-01] MEDS: FLUTICASONE/VILANTEROL 100/25MCG 14 PUFFS/INHALER INH SCH (09:01)
[2022-03-01] MEDS: FUROSEMIDE 40 MG/4 ML VIAL IV SCH (09:01)
[2022-03-01] MEDS: CHOLECALCIFEROL 1,000 UNITS 25 MCG TAB PO SCH (09:01)
[2022-03-01] MEDS: SPIRONOLACTONE 25 MG TAB PO SCH (09:01)
[2022-03-01] MEDS: ASPIRIN 81 MG ECTAB PO SCH (09:09)
--- NOTE | 2022-03-01 09:14 | Discharge Summary ---
Date of Service March 01, 2022 Admission HPI Per Admitting Provider Patient is a 46-year-old male with a significant past medical history including hypertension, hyperlipidemia, heart failure with reduced ejection fraction, nonischemic cardiomyopathy with an EF of 15 to 20%, poorly controlled diabetes, chronic hemoptysis, and medication noncompliance. Patient presented to the emergency department today with a chief complaint of shortness of breath. He initially reports that the symptoms developed abruptly, but his friend reports that she has noticed he has been short of breath over the last week. He has had to turn his baseline 5 L nasal cannula to "full". He reports he is experiencing more symptoms in the past. He denies any coughs or fevers. He denies any jose hemoptysis. He denies any chest pain, palpitations, headaches, dizziness, lightheadedness, nausea, vomiting, or abdominal discomfort. Evaluation in the emergency department, the patient was noted to be markedly hypertensive. Chest x-ray concerning for pulmonary edema. Troponins elevated. Responded well to IV Lasix treatment. Patient reports that he had taken his morning doses of medications. Admission Exam (Per Admitting) Constitutional VITAL SIGNS - Vital signs and nursing notes were reviewed. GENERAL - 46-year-old male appearing his stated age who is in no acute distress. Communicates well with provider and answers questions appropriately. HEAD - NC/AT. EYES - PERRL with EOMI bilaterally. Sclera anicteric. EARS - No deformities of external structures noted on gross examination bilaterally. NOSE - Midline and without cyanosis. No epistaxis or purulent drainage noted. MOUTH/OROPHARYNX - Without perioral cyanosis. Buccal mucosa pink and moist. NECK - Neck with FROM. Supple to palpation. LUNGS - Able to speak in complete sentences. Distant breath sounds. CARDIAC - RRR with S1/S2. No murmur, rubs, or gallops appreciated. ABDOMEN - Abdominal contour obese without pulsations or visible masses. BS normoactive all four quadrants. No tenderness, palpable masses, hepatosplenomegaly, or ascites noted. EXTREMITIES - No clubbing or peripheral cyanosis. Moderate bilateral with RIGHT greater than left pretibial edema. +3/5 radial and dorsalis pedis pulses palpated throughout. +5/5 strength noted in UE/LE bilaterally. NEUROLOGIC - Cranial nerves II through XII grossly intact. PSYCH - A&Ox3 and cooperates fully with examiner. Pt is very pleasant and interacts well with examiner. Discharge Data Consultations 02/27/22 09:26 ED Decision to Admit Stat Hospital Course (1) Acute exacerbation of CHF (congestive heart failure): Unfortunate 46-year-old male presenting with acute on chronic CHF exacerbation requiring inpatient management for aggressive diuresis, blood pressure control, and close hemodynamic monitoring in the patient with an EF of 15 to 20%. * Negative 5 L at this point * Continue with home Lasix 80 mg PO bid. * Continue to use BiPAP HS. * Patient feels greatly improved today. * Comfortable being d/c to home to continue his home medications. (2) Elevated troponin: * Likely in the setting of demand ischemia in the patient with acute on chronic CHF presenting with significant hypertension. * EKG without ST changes or T wave abnormalities otherwise. * No complaints of chest pain. * Troponins have peaked. * Added his home Rx at a reduced dose as there is concern w/ medication compliance w/ previous admissions. * BP much better controlled through the night. (3) Chronic respiratory failure: * Supplemental O2 as needed. * BiPAP at night. (4) COPD (chronic obstructive pulmonary disease): * Continue home inhalers as tolerated. 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 * Patient with known history of receiving medications in the hospital and precipitously drop in his blood pressure. * Will add his metoprolol at half dose and the lowest dose of Entresto to start. * Can work on titrating up his antihypertensive throughout his hospitalization. (8) Diabetes mellitus type II, uncontrolled: * To be placed on insulin sliding scale * Appreciate pharmacy's input. * A1c 13.9 concerning again for patient non-compliance. (9) Hemoptysis: * Appears to be a chronic situation and has been thought to be related to pulmonary vascular congestion in the setting of pulmonary edema. Supervising Physician Co-Signing Physician Notes Patient seen and examined at bedside. I obtained a history of hospital stay and physical examination with the patient during my face to face encounter. I reviewed above note and agree with it. I discussed plan of care with Calvin HA and patient. Patient discharged after being treated with CHF and being treated with diuretics Patient will resume meds as noted above., Coding Level of Care Code HOSP INP/OBS DISCH >30 MIN Diagnoses Acute exacerbation of CHF (congestive heart failure) I50.9 Elevated troponin R77.8 Chronic respiratory failure J96.10 COPD (chronic obstructive pulmonary disease) J44.9 COPD type: unspecified COPD Combined systolic and diastolic heart failure I50.41 Heart failure chronicity: acute NICM (nonischemic cardiomyopathy) I42.8 Hypertension I10 Hypertension type: unspecified Diabetes mellitus type II, uncontrolled E11.65 Glycemic state: with hyperglycemia Hemoptysis R04.2 Time Spent (min) 32
[2022-03-02] MEDS ORDERED: INSULIN ASPART PER UNIT SC SCH
--- NOTE | 2022-03-02 05:43 | Electrocardiogram Report ---
Test Reason : Blood Pressure : / mmHG Vent. Rate : 075 BPM Atrial Rate : 075 BPM P-R Int : 168 ms QRS Dur : 120 ms QT Int : 452 ms P-R-T Axes : 032 -38 125 degrees QTc Int : 504 ms Normal sinus rhythm Left atrial enlargement Left axis deviation Incomplete left bundle block Prolonged QT Abnormal ECG When compared with ECG of 27-FEB-2022 12:50, T wave inversion more evident in Anterolateral leads Confirmed by Abraham Rosen ([id number]) on 03/02/2022 5:42:52 AM Referred By: REFERRED SELF Confirmed By:Abraham Rosen
== END 2022-03-01 13:13 | disposition home or self-care (01) | DRG 291 ==
LOC: ED 07:12 → SUATTDRO 10:24 → EDINP 10:24 → 4W 11:08

== ENCOUNTER 2022-05-08 05:25 | Inpatient (IN) ==
[2022-05-08 06:08] LABS: Basophils # (auto) 0.03 K/uL (0-0.2); Basophils % (auto) 0.3 %; Eosinophils # (auto) 0.07 K/uL (0-0.50); Eosinophils % (auto) 0.8 %; Hematocrit (blood only) 46.1 % (42.0-52.0); Hemoglobin 15.5 g/dl (14.0-18.0); Immature Granulocytes # (auto) 0.04 K/uL (0.01-0.20); Immature Granulocytes % (auto) 0.5 %; Lymphocytes # (auto) 1.82 K/uL (1.2-3.4); Lymphocytes % (auto) 21.1 %; Mean Corpuscular Hemoglobin 28.7 pg (25.0-34.0); Mean Corpuscular Hgb Conc 33.6 g/dL (32.0-36.0); Mean Corpuscular Volume 85.2 fL (80.0-100.0); Mean Platelet Volume 10.7 fL (9.4-12.4); Monocytes # (auto) 0.55 K/uL (0.11-0.59); Monocytes % (auto) 6.4 %; Neutrophils # (auto) 6.13 K/uL (1.40-6.50); Neutrophils % (auto) 70.9 %; Platelet Count 181 K/uL (130-400); RDW Coefficient of Variation 14.5 % (11.5-14.5); RDW Standard Deviation 44.1 fL (36.4-46.3); Red Blood Count 5.41 M/uL (4.70-6.10); White Blood Count 8.64 K/ul (4.8-10.8)
[2022-05-08 06:34] LABS: Albumin Globulin Ratio 1.1 (0.9-2); Albumin Level 3.9 gm/dl (3.4-5.0); BUN Creatinine Ratio 12.1 (10-20); Calcium 8.7 mg/dl (8.6-10.3); Creatinine Clr Calc Pharmacy 150.6 ml/min; Est GFR (African American) 117.5 ml/min; Est GFR (Non-African American) 101.4 ml/min; Globulin 3.7 gm/dl (2.5-4.0); Potassium 3.7 mmol/L (3.5-5.1); Total Protein 7.6 gm/dl (6.0-8.3)
[2022-05-08 06:39] LABS: Troponin I High Sensitivity 30.3 pg/ml (0-20)
--- NOTE | 2022-05-08 06:57 | XRay Report ---
SINGLE VIEW CHEST CLINICAL HISTORY: Atypical chest pain FINDINGS: An AP, portable, upright chest radiograph is compared to study dated 02/27/2022 and correlat ed with chest CT dated 06/16/2021. A single lead cardiac pacemaker is unchanged in position. The heart is enlarged. There is pulmonary vascular congestion. Bilateral opacities likely represent interstitia l edema. There are layering pleural effusions with dependent consolidation. No pneumothorax is seen. The skeletal structures are osteopenic. The bony thorax is grossly intact. IMPRESSION: 1. Cardiomegaly and cardiac pacemaker with evidence of congestive failure. 2. Bilateral airspace opacities likely represent pulmonary edema. Correlate clinically for evidence o f a superimposed infectious/inflammatory pneumonitis. Radiographic follow-up to resolution is recomme nded. 3. Layering pleural effusions with dependent consolidation. ACT 112: Negative or not required by law. Electronically signed by: Abhilash Carpio M.D. 05/08/2022 6:56 AM
--- NOTE | 2022-05-08 07:17 | Emergency Department Note ---
Impression & Plan Acute respiratory failure, Chest pain, CHF (congestive heart failure), Hypoxia ED Provider Note NAME: HARDIK LOVE AGE: 46 SEX: M : 1975 ARRIVES VIA: Ambulance INFORMANT: Patient, Nurse ED PROVIDER(S): Ananth Velazco DO CHIEF COMPLAINT: Shortness of breath HPI: Patient is a 46-year-old male with a past medical history of intellectual disability, COPD, systolic and diastolic heart failure, nonischemic cardiomyopathy with an AICD and hypertension who presents to the ER for chest pain and shortness of breath. He was wearing his 5 L at home walking to the bathroom he became very diaphoretic and short of breath. EMS was called. He was found to be hypoxic in the mid 80s. He was placed on BiPAP and transported in. His chest pain which was midsternal was a pressure rating out to both arms has resolved. Shortness of breath has improved significantly. Denies any belly pain, nausea, vomiting, or diarrhea. No dysuria, urgency, or frequency. No other exacerbating or remitting factors. He was given 324 of aspirin as well as nitro and the pain did resolve in his chest with this. PAST MEDICAL HISTORY:See Below PAST SURGICAL HISTORY:See Below FAMILY HISTORY:See Below SOCIAL HISTORY:See Below HOME MEDICATIONS:See Below ALLERGIES:See Below VITALS:See Below PHYSICAL EXAMINATION: GENERAL: Sitting up in bed, alert, ill-appearing, morbidly obese on BiPAP EYE EXAM: normal conjunctiva. OROPHARYNX: Dry mucous membranes NECK: supple, no nuchal rigidity, no adenopathy, non-tender LUNGS: Diminished bilaterally. Normal chest wall mechanics HEART: no murmurs, S1 normal and S2 normal ABDOMEN: abdomen soft, non-tender, normo-active bowel sounds, no masses, no rebound or guarding. UPPER EXTREMITIES: upper extremities are grossly normal. LOWER EXTREMITIES: Pitting edema bilaterally NEURO EXAM: Normal sensorium, cranial nerves II-XII grossly intact, normal speech, no gross weakness of arms, no gross weakness of legs. MEDICAL DECISION MAKING: Patient is a 46-year-old male with a past medical history of CHF and intellectual disability as well as COPD chronically on 5 L nasal cannula presents the ER for shortness of breath chest pain. He was brought in by EMS found to be hypoxic on his 5 L. He was placed on BiPAP. IV was established blood work was obtained. Labs show no significant leukocytosis or anemia. INR unremarkable. VBG with pH 7.34 and a CO2 of 53 after being on BiPAP for 3 to 4 hours. BMP was unremarkable. Troponin was elevated at 30 but fairly consistent with previous. proBNP elevated at 600. EKG was nondiagnostic. Chest x-ray with cephalization. Patient was updated bedside. He was given Lasix. He was discussed with the hospitalist admitted for further work-up. Do favor this most consistent with CHF. Triage Nursing notes reviewed. Limited review of prior medical records performed Vital Signs: reviewed and remarkable for HTN Differential diagnosis: Cardiac ischemia, aortic dissection, pulmonary embolism, pneumothorax, pneumonia, pericarditis, myocarditis, esophageal rupture, GERD, cholecystitis, pancreatitis, musculoskeletal, as well as other pathologies. ER treatment provided: See below Diagnostics interpreted by me include EKG and cardiac monitoring as listed below: -Cardiac Monitoring: An order was placed for continuous cardiac monitoring. The monitor shows a rate of 101 with sinus rhythm. -ECG: Sinus tachycardia rate of [address] depressions in the high lateral leads QTc 474 -Laboratory studies:Interpreted by me as stated above in MDM and shown below. Imaging studies: Xrays: As interpreted by me: Portable AP upright 1 view of the chest shows no pneumonia CTs show: none Consultation(s): Discussed with the hospitalist for further evaluation management and treatment Procedures:none Critical Care: I have personally spent 32 minutes of critical care time in the direct management of this patient. This includes bedside care, interpretation of diagnostic studies, and testing, discussion with consultants, patient, and family members, and other required patient management activities. This 32 minutes is in excess of all separately billable procedures. Past Med/Surg History Medical History Abscess of multiple sites Bacteremia Chronic respiratory failure Dilatation of thoracic aorta Fatty liver Hearing loss of both ears Housing instability, currently housed, at risk for homelessness Hx of local infection of skin and subcutaneous tissue Iliac aneurysm Lung nodule NICM (nonischemic cardiomyopathy) Nonproliferative retinopathy due to secondary diabetes Obstructive sleep apnea Umbilical hernia Urinary bladder incontinence Vitamin D insufficiency Surgical History History of carpal tunnel surgery History of cholecystectomy S/P tonsillectomy Family History Father , age 57 [address] Heart disease Myocardial infarction Mother , age 67 of a ruptured neck vessel Sudden Other Depression Lung disease No pertinent family history Denies family history of Ovarian cancer Prostate cancer Breast cancer Colorectal cancer Social History Smoking Status: Current some day smoker Tobacco Type: Cigarettes Age Started Using Tobacco: 14; Age Quit Using Tobacco: 18; Cigarettes Per Day: 40; Second Hand Exposure: No; Hx Alcohol Use: No Hx Substance Use: No Preferred Language: Occitan Communication Ability: Effective Communication Ability Comment: impaired due to current respiratory status Visual Impairment: No Limitations Hearing Ability: Normal 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: No Beliefs That Will Affect Care: None marital status: Current Living Situation: Spouse current occupational status: unemployed How many Children do You have: 0 Feels Safe at Home: Yes Childhood Exposure to Second-Hand Smoke: Yes Dental Care, Regularly: Yes Physical Activity Frequency: Does not Exercise Assistive Devices: BiPap, Glasses, Hearing Aid - Bilateral, Oxygen - Continuous and Walker Allergies Allergies Allergy/AdvReac Type Severity Reaction Status Date / Time ceftriaxone Allergy Severe SHORTNESS Verified 03/07/22 08:36 OF BREATH lidocaine Allergy Severe SHORTNESS Verified 03/07/22 08:36 OF BREATH, diaphoretic, hives procaine Allergy Severe SHORTNESS Verified 03/07/22 08:36 OF BREATH, diaphoretic, hives amoxicillin Allergy Intermediate HIVES/FACIAL Verified 03/07/22 08:36 SWELLING clavulanic acid Allergy Intermediate HIVES/FACIAL Verified 03/07/22 08:36 SWELLING lisinopril Allergy Intermediate HIVES Verified 03/07/22 08:36 shellfish derived Allergy Unknown Verified 03/07/22 08:36 acetaminophen AdvReac Mild NAUSEA Verified 03/07/22 08:36 albuterol AdvReac Mild proair Verified 03/07/22 08:36 "trouble taking breaths" Fish Containing Products AdvReac Unknown Unknown Verified 03/07/22 08:36 Home Meds Home Medications Medication Instructions Recorded Confirmed nitroglycerin 0.4 mg sublingual 0.4 mg sublingual UD PRN Chest Pain 04/24/19 03/07/22 tablet (Nitrostat) aspirin 81 mg tablet,delayed 81 mg PO QAM 06/16/21 03/07/22 release (Neisha Low Dose Aspirin) famotidine 20 mg tablet 20 mg PO QAM 06/16/21 03/07/22 magnesium oxide 400 mg (241.3 mg 400 mg PO QAM 06/16/21 03/07/22 magnesium) tablet esomeprazole magnesium 40 mg 40 mg PO BID 08/31/21 03/07/22 capsule,delayed release spironolactone 25 mg tablet See Rx Instructions .Route .COMPLEX 08/31/21 03/07/22 (Aldactone) albuterol sulfate 2.5 mg/3 mL 2.5 mg inhalation Q6H 12/02/21 03/07/22 (0.083 %) solution for nebulization dulaglutide 3 mg/0.5 mL 3 mg subcut WK 12/02/21 03/07/22 subcutaneous pen injector cholecalciferol (vitamin D3) 50 150 mcg PO DAILY 12/27/21 03/07/22 mcg (2,000 unit) tablet (Vitamin D3) torsemide 20 mg tablet 20 mg PO .COMPLEX 12/27/21 03/07/22 Previous Rx's Medication Instructions Recorded albuterol sulfate 90 mcg/actuation 1 inh inhalation QID #8.5 grams 12/09/20 aerosol inhaler metoprolol succinate 100 mg 100 mg PO BID #60 tabs 02/21/21 tablet,extended release 24 hr sacubitril 97 mg-valsartan 103 mg 1 tab PO BID #60 tabs 02/21/21 tablet (Entresto) Symbicort 160 mcg-4.5 2 inh inhalation BID #10.2 grams 05/04/21 mcg/actuation HFA aerosol inhaler (budesonide-formoterol) insulin lispro protamine-lispro 40 unit (0.4 mL) subcut BID 30 11/03/21 100 unit/mL (50-50) subcutaneous days #24 mL pen (Humalog Mix 50-50 KwikPen) mupirocin 2 % topical ointment 1 applic topical TID Skin 11/25/21 Infection #22 grams pen needle, diabetic 31 gauge x #100 ea 12/27/21 5/16" (Comfort EZ Pen [place]) Results & Data (ED) Vital Signs Vital Signs - 24 hr 05/08/22 05:30 05/08/22 05:30 05/08/22 05:30 Temperature 37.0 C 37.0 C Temperature Source Oral Oral Pulse Rate 111 H Pulse Rate [Apical] 111 H Pulse Rate from SpO2 Sensor Respiratory Rate 24 24 Respiratory Effort / Characteristics Labored Labored Labored Blood Pressure 168/118 H Blood Pressure [Right Arm] 168/118 H Blood Pressure Mean 134 Blood Pressure Mean [Right Arm] 134 Pulse Oximetry 89 L 89 L Oxygen Delivery Method Nasal Cannula Nasal Cannula Nasal Cannula Oxygen Flow Rate 6 5 7 Fraction of Inspired Oxygen Sepsis Recent Fever Within 48 Hours No Sepsis New/Unexplained Change in Mental Status N/A Sepsis Action Taken by Nursing No Action Required 05/08/22 05:30 05/08/22 05:30 05/08/22 05:44 Temperature Temperature Source Pulse Rate 118 H Pulse Rate [Apical] Pulse Rate from SpO2 Sensor 237 H Respiratory Rate 30 H 23 Respiratory Effort / Characteristics Spontaneous Accessory Muscle Use Blood Pressure 168/118 H 168/118 H Blood Pressure [Right Arm] Blood Pressure Mean 134 134 Blood Pressure Mean [Right Arm] Pulse Oximetry 89 L 96 Oxygen Delivery Method Nasal Cannula Oxygen Flow Rate 7 Fraction of Inspired Oxygen 40 Sepsis Recent Fever Within 48 Hours Sepsis New/Unexplained Change in Mental Status Sepsis Action Taken by Nursing 05/08/22 05:30 05/08/22 05:46 05/08/22 06:01 Temperature Temperature Source Pulse Rate 118 H 105 H 91 H Pulse Rate [Apical] Pulse Rate from SpO2 Sensor 91 H Respiratory Rate 24 30 H Respiratory Effort / Characteristics Blood Pressure 142/91 H Blood Pressure [Right Arm] Blood Pressure Mean 108 Blood Pressure Mean [Right Arm] Pulse Oximetry 96 97 Oxygen Delivery Method BiPAP BiPAP Oxygen Flow Rate Fraction of Inspired Oxygen Sepsis Recent Fever Within 48 Hours Sepsis New/Unexplained Change in Mental Status Sepsis Action Taken by Nursing 05/08/22 06:30 05/08/22 07:00 05/08/22 07:00 Temperature Temperature Source Pulse Rate 79 78 Pulse Rate [Apical] Pulse Rate from SpO2 Sensor 80 80 Respiratory Rate 20 14 Respiratory Effort / Characteristics Blood Pressure 141/98 H 137/96 Blood Pressure [Right Arm] Blood Pressure Mean 112 109 Blood Pressure Mean [Right Arm] Pulse Oximetry 97 99 Oxygen Delivery Method BiPAP BiPAP Oxygen Flow Rate Fraction of Inspired Oxygen Sepsis Recent Fever Within 48 Hours Sepsis New/Unexplained Change in Mental Status Sepsis Action Taken by Nursing 05/08/22 07:30 05/08/22 07:30 05/08/22 08:00 Temperature Temperature Source Pulse Rate 79 103 H Pulse Rate [Apical] Pulse Rate from SpO2 Sensor Respiratory Rate 18 17 Respiratory Effort / Characteristics Blood Pressure 142/101 H Blood Pressure [Right Arm] Blood Pressure Mean 114 Blood Pressure Mean [Right Arm] Pulse Oximetry 97 99 Oxygen Delivery Method BiPAP BiPAP Oxygen Flow Rate Fraction of Inspired Oxygen Sepsis Recent Fever Within 48 Hours Sepsis New/Unexplained Change in Mental Status Sepsis Action Taken by Nursing 05/08/22 08:26 05/08/22 08:26 05/08/22 08:30 Temperature Temperature Source Pulse Rate 82 90 Pulse Rate [Apical] Pulse Rate from SpO2 Sensor Respiratory Rate 19 23 Respiratory Effort / Characteristics Blood Pressure 152/112 H Blood Pressure [Right Arm] Blood Pressure Mean 125 Blood Pressure Mean [Right Arm] Pulse Oximetry 97 99 Oxygen Delivery Method BiPAP BiPAP Oxygen Flow Rate Fraction of Inspired Oxygen Sepsis Recent Fever Within 48 Hours Sepsis New/Unexplained Change in Mental Status Sepsis Action Taken by Nursing 05/08/22 08:30 Temperature Temperature Source Pulse Rate Pulse Rate [Apical] Pulse Rate from SpO2 Sensor Respiratory Rate Respiratory Effort / Characteristics Blood Pressure 167/115 H Blood Pressure [Right Arm] Blood Pressure Mean 132 Blood Pressure Mean [Right Arm] Pulse Oximetry Oxygen Delivery Method Oxygen Flow Rate Fraction of Inspired Oxygen Sepsis Recent Fever Within 48 Hours Sepsis New/Unexplained Change in Mental Status Sepsis Action Taken by Nursing Laboratory Data 05/08/22 05:38 05/08/22 05:38 Lab Results 05/08/22 05/08/22 05/08/22 Range/Units 05:38 05:38 05:38 WBC 8.64 (4.8-10.8) K/ul RBC 5.41 (4.70-6.10) M/uL Hgb 15.5 (14.0-18.0) g/dl Hct 46.1 (42.0-52.0) % MCV 85.2 (80.0-100.0) fL MCH 28.7 (25.0-34.0) pg MCHC 33.6 (32.0-36.0) g/dL RDW Std Deviation 44.1 (36.4-46.3) fL RDW Coeff of Zoltan 14.5 (11.5-14.5) % Plt Count 181 (130-400) K/uL MPV 10.7 (9.4-12.4) fL Immature Gran % (Auto) 0.5 % Neut % (Auto) 70.9 % Lymph % (Auto) 21.1 % Cowley % (Auto) 6.4 % Eos % (Auto) 0.8 % Baso % (Auto) 0.3 % Neut # (Auto) 6.13 (1.40-6.50) K/uL Lymph # (Auto) 1.82 (1.2-3.4) K/uL Cowley # (Auto) 0.55 (0.11-0.59) K/uL Eos # (Auto) 0.07 (0-0.50) K/uL Baso # (Auto) 0.03 (0-0.2) K/uL Immature Gran # (Auto) 0.04 (0.01-0.20) K/uL PT Cancelled INR Cancelled Sodium 138 (136-145) mmol/L Potassium 3.7 (3.5-5.1) mmol/L Chloride 106 (98-107) mmol/L Carbon Dioxide 21 (21-32) mmol/L Anion Gap 11 (3-11) BUN 11 (6-23) mg/dl Creatinine 0.91 (0.6-1.4) mg/dl Est Cr Clr Drug Dosing 150.6 ml/min Est GFR ( Amer) 117.5 ml/min Est GFR (Non-Af Amer) 101.4 ml/min BUN/Creatinine Ratio 12.1 (10-20) Glucose 146 H (70-99(Fasting)) mg/dl Calcium 8.7 (8.6-10.3) mg/dl Total Bilirubin 1.0 (0.2-1.0) mg/dl AST 22 (13-39) U/L ALT 21 (7-52) U/L Alkaline Phosphatase 85 (34-104) U/L Troponin I High Sens 30.3 H (0-20) pg/ml Total Protein 7.6 (6.0-8.3) gm/dl Albumin 3.9 (3.4-5.0) gm/dl Globulin 3.7 (2.5-4.0) gm/dl Albumin/Globulin Ratio 1.1 (0.9-2) SARS-CoV-2, RNA, NAAT (NEGATIVE) 05/08/22 05/08/22 Range/Units 05:38 06:44 WBC (4.8-10.8) K/ul RBC (4.70-6.10) M/uL Hgb (14.0-18.0) g/dl Hct (42.0-52.0) % MCV (80.0-100.0) fL MCH (25.0-34.0) pg MCHC (32.0-36.0) g/dL RDW Std Deviation (36.4-46.3) fL RDW Coeff of Zoltan (11.5-14.5) % Plt Count (130-400) K/uL MPV (9.4-12.4) fL Immature Gran % (Auto) % Neut % (Auto) % Lymph % (Auto) % Cowley % (Auto) % Eos % (Auto) % Baso % (Auto) % Neut # (Auto) (1.40-6.50) K/uL Lymph # (Auto) (1.2-3.4) K/uL Cowley # (Auto) (0.11-0.59) K/uL Eos # (Auto) (0-0.50) K/uL Baso # (Auto) (0-0.2) K/uL Immature Gran # (Auto) (0.01-0.20) K/uL PT 11.4 INR 1.1 Sodium (136-145) mmol/L Potassium (3.5-5.1) mmol/L Chloride (98-107) mmol/L Carbon Dioxide (21-32) mmol/L Anion Gap (3-11) BUN (6-23) mg/dl Creatinine (0.6-1.4) mg/dl Est Cr Clr Drug Dosing ml/min Est GFR ( Amer) ml/min Est GFR (Non-Af Amer) ml/min BUN/Creatinine Ratio (10-20) Glucose (70-99(Fasting)) mg/dl Calcium (8.6-10.3) mg/dl Total Bilirubin (0.2-1.0) mg/dl AST (13-39) U/L ALT (7-52) U/L Alkaline Phosphatase (34-104) U/L Troponin I High Sens (0-20) pg/ml Total Protein (6.0-8.3) gm/dl Albumin (3.4-5.0) gm/dl Globulin (2.5-4.0) gm/dl Albumin/Globulin Ratio (0.9-2) SARS-CoV-2, RNA, NAAT NEGATIVE (NEGATIVE) Administered Medications Albuterol (Albuterol 0.083% Nebu Soln 3 Ml Vial) 2.5 mg INH Q6R SUKHWINDER; Protocol Stop: 06/07/22 09:44 Last Admin: 05/08/22 09:57 Dose: 2.5 mg Documented By: LG Discontinued Medications Furosemide (Furosemide 40 Mg/4 Ml Vial) 40 mg IV ONE ONE Stop: 05/08/22 07:43 Last Admin: 05/08/22 08:25 Dose: 40 mg Documented By: HG Furosemide (Furosemide Inj 20 Mg/2 Ml Vial) 20 mg IV ONE ONE Stop: 05/08/22 09:16 Last Admin: 05/08/22 10:33 Dose: 20 mg Documented By: HG Imaging Data Radiologist's Impression: Chest X-Ray 05/08/22 05:31 SINGLE VIEW CHEST CLINICAL HISTORY: Atypical chest pain FINDINGS: An AP, portable, upright chest radiograph is compared to study dated 02/27/2022 and correlated with chest CT dated 06/16/2021. A single lead cardiac pacemaker is unchanged in position. The heart is enlarged. There is pulmonary vascular congestion. Bilateral opacities likely represent interstitial edema. There are layering pleural effusions with dependent consolidation. No pneumothorax is seen. The skeletal structures are osteopenic. The bony thorax is grossly intact. IMPRESSION: 1. Cardiomegaly and cardiac pacemaker with evidence of congestive failure. 2. Bilateral airspace opacities likely represent pulmonary edema. Correlate clinically for evidence of a superimposed infectious/inflammatory pneumonitis. R adiographic follow-up to resolution is recommended. 3. Layering pleural effusions with dependent consolidation. ACT 112: Negative or not required by law. Electronically signed by: Abhilash Carpio M.D. 05/08/2022 6:56 AM Discharge Plan Visit Data Chief Complaint: Chest Pain Stated Complaint: Chest Pain radiating down both arms ED Provider: Ananth Velazco Discharge Problem: Acute respiratory failure, Chest pain, CHF (congestive heart failure), Hypoxia Patient Disposition: Admitted As Inpatient Discharge Instructions Interventions: ED Discharge Assessment Last Done: 05/08/22 11:34
[2022-05-08 07:31] LABS: INR 1.1 (0.9-1.1); Prothrombin Time 11.4 Seconds (9.0-12.0)
[2022-05-08] MEDS ORDERED: FUROSEMIDE 40 MG/4 ML VIAL IV ONE (07:42)
--- NOTE | 2022-05-08 09:02 | History & Physical Report ---
Date of Service May 08, 2022 Assessment & Plan (1) Acute respiratory failure: Plan: will admit for above problem (2) CHF (congestive heart failure): Plan: acute systolic congestive heart failure will diurese patient contnue lasix recheck levels in AM Chronic respiratory failure: Plan: Supplemental O2 as needed. BiPAP at night. COPD (chronic obstructive pulmonary disease): Plan: Continue home inhalers as tolerated. COPD type: unspecified COPD Qualified Code(s): J44.9 - Chronic obstructive pulmonary disease, unspecified Combined systolic and diastolic heart failure: Plan: As above Heart failure chronicity: acute Qualified Code(s): I50.41 - Acute combined systolic (congestive) and diastolic (congestive) heart failure NICM (nonischemic cardiomyopathy): Plan: As above Hypertension: Plan: Likely degree of noncompliance. Patient with known history of receiving medications in the hospital and precipitously drop in his blood pressure. Will add his metoprolol at half dose and the lowest dose of Entresto to start. Can work on titrating up his antihypertensive throughout his hospitalization. Hypertension type: unspecified Qualified Code(s): I10 - Essential (primary) hypertension Diabetes mellitus type II, uncontrolled: Plan: To be placed on insulin sliding scale Appreciate pharmacy's input. A1c 13.9 concerning again for patient non-compliance. Glycemic state: with hyperglycemia Qualified Code(s): E11.65 - Type 2 diabetes mellitus with hyperglycemia (3) Obstructive sleep apnea: History of Present Illness Chief Complaint: SOB Primary Care Provider: Gosia Becker MD Patient is a 46-year-old male with a significant past medical history including hypertension, hyperlipidemia, heart failure with reduced ejection fraction, nonischemic cardiomyopathy with an EF of 15 to 20%, poorly controlled diabetes, chronic hemoptysis, and medication noncompliance. Patient presented to the emergency department today with a chief complaint of shortness of breath. Patient is on BIPAP, he reports that he has been more short of breath over the past week. He denies any fever, chills, chest pain, palpitations, headaches, dizziness, lightheadedness, nausea, vomiting, or abdominal discomfort. Allergies Allergy/AdvReac Type Severity Reaction Status Date / Time ceftriaxone Allergy Severe SHORTNESS Verified 03/07/22 08:36 OF BREATH lidocaine Allergy Severe SHORTNESS Verified 03/07/22 08:36 OF BREATH, diaphoretic, hives procaine Allergy Severe SHORTNESS Verified 03/07/22 08:36 OF BREATH, diaphoretic, hives amoxicillin Allergy Intermediate HIVES/FACIAL Verified 03/07/22 08:36 SWELLING clavulanic acid Allergy Intermediate HIVES/FACIAL Verified 03/07/22 08:36 SWELLING lisinopril Allergy Intermediate HIVES Verified 03/07/22 08:36 shellfish derived Allergy Unknown Verified 03/07/22 08:36 acetaminophen AdvReac Mild NAUSEA Verified 03/07/22 08:36 albuterol AdvReac Mild proair Verified 03/07/22 08:36 "trouble taking breaths" Fish Containing Products AdvReac Unknown Unknown Verified 03/07/22 08:36 Home Medications Medication Instructions Recorded Confirmed Type nitroglycerin 0.4 mg sublingual 0.4 mg sublingual UD PRN Chest Pain 04/24/19 03/07/22 History tablet (Nitrostat) albuterol sulfate 90 mcg/actuation 1 inh inhalation QID #8.5 grams 12/09/20 03/07/22 Rx aerosol inhaler metoprolol succinate 100 mg 100 mg PO BID #60 tabs 02/21/21 03/07/22 Rx tablet,extended release 24 hr sacubitril 97 mg-valsartan 103 mg 1 tab PO BID #60 tabs 02/21/21 03/07/22 Rx tablet (Entresto) Symbicort 160 mcg-4.5 2 inh inhalation BID #10.2 grams 05/04/21 03/07/22 Rx mcg/actuation HFA aerosol inhaler (budesonide-formoterol) aspirin 81 mg tablet,delayed 81 mg PO QAM 06/16/21 03/07/22 History release (Neisha Low Dose Aspirin) famotidine 20 mg tablet 20 mg PO QAM 06/16/21 03/07/22 History magnesium oxide 400 mg (241.3 mg 400 mg PO QAM 06/16/21 03/07/22 History magnesium) tablet esomeprazole magnesium 40 mg 40 mg PO BID 08/31/21 03/07/22 History capsule,delayed release spironolactone 25 mg tablet See Rx Instructions .Route .COMPLEX 08/31/21 03/07/22 History (Aldactone) insulin lispro protamine-lispro 40 unit (0.4 mL) subcut BID 30 11/03/21 03/07/22 Rx 100 unit/mL (50-50) subcutaneous days #24 mL pen (Humalog Mix 50-50 KwikPen) mupirocin 2 % topical ointment 1 applic topical TID Skin 11/25/21 03/07/22 Rx Infection #22 grams albuterol sulfate 2.5 mg/3 mL 2.5 mg inhalation Q6H 12/02/21 03/07/22 History (0.083 %) solution for nebulization dulaglutide 3 mg/0.5 mL 3 mg subcut WK 12/02/21 03/07/22 History subcutaneous pen injector cholecalciferol (vitamin D3) 50 150 mcg PO DAILY 12/27/21 03/07/22 History mcg (2,000 unit) tablet (Vitamin D3) pen needle, diabetic 31 gauge x #100 ea 12/27/21 03/07/22 Rx 5/16" (Comfort EZ Pen [place]) torsemide 20 mg tablet 20 mg PO .COMPLEX 12/27/21 03/07/22 History Past Med/Surg History Medical History Abscess of multiple sites Acute and chronic respiratory failure Acute exacerbation of CHF (congestive heart failure) Bacteremia Chronic respiratory failure Dilatation of thoracic aorta Elevated troponin Fatty liver Hearing loss of both ears Housing instability, currently housed, at risk for homelessness Hx of local infection of skin and subcutaneous tissue Iliac aneurysm Lung nodule NICM (nonischemic cardiomyopathy) Pt admitted for elective ICD. Underwent procedure without any complications monitored over night and discharged home. 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 Heart disease Myocardial infarction Mother , age 67 of a ruptured neck vessel Sudden Other Depression Lung disease No pertinent family history Denies family history of Ovarian cancer Prostate cancer Breast cancer Colorectal cancer Social History Smoking Status: Former smoker Tobacco Type: Cigarettes Age Started Using Tobacco: 14; Age Quit Using Tobacco: 18; Cigarettes Per Day: 40; Second Hand Exposure: No; Hx Alcohol Use: No Hx Substance Use: No Preferred Language: Barbadian Communication Ability: Effective Visual Impairment: No Limitations Hearing Ability: Normal Scrap Iron Loader Required: No Beliefs That Will Affect Care: None marital status: Current Living Situation: Spouse current occupational status: unemployed How many Children do You have: 0 Feels Safe at Home: Yes Childhood Exposure to Second-Hand Smoke: Yes Dental Care, Regularly: Yes Physical Activity Frequency: Does not Exercise Assistive Devices: Oxygen - Continuous, Scooter/Electric Scooter and Walker Review of Systems Review of Systems: The patient denies chest pain, palpitations, lower extremity swelling, sore throat, fevers, chills, sweats, nausea, vomiting, diarrhea , constipation, abdominal pain, pelvic pain, blood in urine or stool, dysuria, urinary frequency or urgency, loss of consciousness, rash, abnormal bruising or bleeding, imbalance, focal or generalized weakness, numbness or tingling in arms or legs, generalized arthralgias or myalgias, back or neck pain, or night sweats. The review of systems is otherwise negative other than for that already noted above, and at least 10 systems have been reviewed. Physical Exam Physical Exam: The patient is awake, alert and oriented 3, morbidly obese, normocephalic and atraumatic, lying in bed and in moderate respiratory distress with accessory muscle use HEENT--PERRL, EOMI, mucous membranes and oropharynx dry. Neck--supple. No JVD. No bruits. Thyroid normal, trachea midline, no adenopathy. Heart--normal S1 and S2. No murmurs, rubs or gallops. Lungs--coarse breath sounds bilaterally with wheezes and rhonchi throughout. Moderate respiratory distress with accessory muscle use, improving on BiPAP Abdomen--normal bowel sounds and soft. Nontender. Nondistended. Morbidly obese Extremities--2+ bilateral pretibial pitting edema Dermatologic--normal skin turgor, normal color, no abnormal lymph nodes, no rash. Neurologic--cranial nerves II through XII grossly intact. Rheumatologic--normal range of motion. Psychiatric--normal affect. Results & Data Results & Data Vital Signs (Past 12 Hours) Vital Signs Temp Pulse Pulse Resp BP BP Pulse Ox 05/08/22 08:58 14 97 05/08/22 08:30 90 23 99 05/08/22 08:26 152/112 H 05/08/22 08:26 82 19 97 05/08/22 08:00 103 H 17 99 05/08/22 07:30 79 18 97 05/08/22 07:30 142/101 H 05/08/22 07:00 78 14 99 05/08/22 07:00 137/96 05/08/22 06:30 79 20 141/98 H 97 05/08/22 06:01 91 H 30 H 142/91 H 97 05/08/22 05:46 105 H 24 96 05/08/22 05:30 118 H 05/08/22 05:44 23 96 05/08/22 05:30 118 H 30 H 168/118 H 89 L 05/08/22 05:30 168/118 H 05/08/22 05:30 05/08/22 05:30 37.0 C 111 H 24 168/118 H 89 L 05/08/22 05:30 37.0 C 111 H 24 168/118 H 89 L O2 Del Method O2 Flow Rate FiO2 05/08/22 08:58 30 05/08/22 08:30 Room Air 05/08/22 08:26 05/08/22 08:26 Room Air 05/08/22 08:00 Room Air 05/08/22 07:30 Room Air 05/08/22 07:30 05/08/22 07:00 Room Air 05/08/22 07:00 05/08/22 06:30 BiPAP 05/08/22 06:01 BiPAP 05/08/22 05:46 BiPAP 05/08/22 05:30 05/08/22 05:44 40 05/08/22 05:30 Nasal Cannula 7 05/08/22 05:30 05/08/22 05:30 Nasal Cannula 7 05/08/22 05:30 Nasal Cannula 5 05/08/22 05:30 Nasal Cannula 6 PG Care Time/CCT Total # of Minutes Spent Total Time Spent with Patient: Total time spent is greater than 50% in coordination of care (as documented) at patient's floor/unit and/or counseling patient: Coding Level of Care Code 92477 INT INP/OBS CARE MIN Diagnoses Acute respiratory failure J96.00 CHF (congestive heart failure) I50.9 Obstructive sleep apnea G47.33
[2022-05-08] MEDS ORDERED: FUROSEMIDE INJ 20 MG/2 ML VIAL IV ONE (09:15)
[2022-05-08] MEDS: ALBUTEROL 0.083% NEBU SOLN 3 ML VIAL INH SCH ×3 (09:57→19:16)
[2022-05-08 11:05] LABS: Base Excess VBG 1.8 mEq/L; HCO3 VBG 29 mmol/L; Oxygen Saturation VBG < 60.0 %; PCO2 VBG 53 mmHg (38-50); PO2 VBG 30 mmHg; pH VBG 7.34 (7.36-7.41)
--- NOTE | 2022-05-08 15:05 | Electrocardiogram Report ---
Test Reason : Blood Pressure : / mmHG Vent. Rate : 109 BPM Atrial Rate : 109 BPM P-R Int : 166 ms QRS Dur : 112 ms QT Int : 352 ms P-R-T Axes : 026 -33 097 degrees QTc Int : 474 ms Sinus tachycardia Possible Left atrial enlargement Left axis deviation Incomplete left bundle block Abnormal ECG When compared with ECG of 28-FEB-2022 00:29, T wave inversion less evident in Lateral leads Confirmed by Rodney Cary ([id number]) on 05/08/2022 3:04:55 PM Referred By: Confirmed By:Rodney Cary
[2022-05-08] MEDS: PANTOprazole 40 MG TAB PO SCH (20:09)
[2022-05-08] MEDS ORDERED: POTASSIUM CHLORIDE CRTAB 20 MEQ TABCR PO STA (22:23)
[2022-05-08] MEDS ORDERED: POTASSIUM CHLORIDE PWD 20 MEQ PACK PO STA (23:06)
[2022-05-09] MEDS: ALBUTEROL 0.083% NEBU SOLN 3 ML VIAL INH SCH ×5 (01:17→20:21)
[2022-05-09] MEDS ORDERED: DEXTROSE 50% 50 ML SYRINGE IV PRN (02:34)
[2022-05-09] MEDS ORDERED: GLUCAGON FOR INJ 1 MG VIAL SQ PRN (02:34)
[2022-05-09] MEDS ORDERED: GLUCOSE 10 TAB/TUBE PO PRN (02:34)
[2022-05-09] MEDS ORDERED: GLUCOSE 40% GEL 15 GM TUBE PO PRN (02:34)
[2022-05-09] MEDS ORDERED: CARBOHYDRATES FOR HYPOGLYCEMIA PO PRN (02:34)
[2022-05-09 07:00] LABS: Hematocrit (blood only) 42.8 % (42.0-52.0); Hemoglobin 14.2 g/dl (14.0-18.0); Mean Corpuscular Hemoglobin 28.6 pg (25.0-34.0); Mean Corpuscular Hgb Conc 33.2 g/dL (32.0-36.0); Mean Corpuscular Volume 86.1 fL (80.0-100.0); Mean Platelet Volume 10.1 fL (9.4-12.4); Platelet Count 157 K/uL (130-400); RDW Coefficient of Variation 14.7 % (11.5-14.5); Red Blood Count 4.97 M/uL (4.70-6.10); White Blood Count 7.78 K/ul (4.8-10.8)
[2022-05-09 07:45] LABS: BUN Creatinine Ratio 13.3 (10-20); Calcium 8.3 mg/dl (8.6-10.3); Creatinine Clr Calc Pharmacy 138.6 ml/min; Est GFR (African American) 107.5 ml/min; Est GFR (Non-African American) 92.7 ml/min; Potassium 3.8 mmol/L (3.5-5.1)
[2022-05-09 07:53] LABS: Troponin I High Sensitivity 25.8 pg/ml (0-20)
[2022-05-09] MEDS: FLUTICASONE/VILANTEROL 200/25MCG 14 PUFFS/INHALER INH SCH (08:44)
--- NOTE | 2022-05-09 08:54 | Cardiology Consultation ---
Date of Consultation May 09, 2022 Assessment & Plan (1) Acute respiratory failure: (2) Chest pain: (3) CHF (congestive heart failure): (4) Hypoxia: (5) Morbid obesity with BMI of 50.0-59.9, adult: (6) Medical non-compliance: Plan The patient has had multiple clinic no-shows over the past several months. He states he has not had his ICD interrogated for well over 6 months and therefore will have it interrogated while in the hospital. I have also restarted some of his home medications including torsemide, Aldactone and Entresto at a lower dose. At some point he should be placed back on metoprolol XL. We will following with you during his hospital stay. History of Present Illness Attending Physician: Shemar Sky History of Present Illness This is a 46-year-old morbidly obese gentleman with a history of HFrEF and previous multiple hospital admissions with medical noncompliance. He presented to the emergency department in respiratory extremis requiring BiPAP. He has now been admitted to the hospital. High-sensitivity cardiac troponins are chronically elevated as well as BNP. Past medical history: 1.Chronic respiratory failure secondary to obesity, severe MARIELENA with non compliance 2.Chronic combined systolic and diastolic heart failure, nonischemic cardiomyopathy, most recent ejection fraction the range of 15-20% on echocar diogram. 3.S/P single chamber ICD implantation on 04/08/19 - appropriate function. 4.Paroxysmal VT noted on device interrogation. Non compliant with metoprolol 5.Hypertension - controlled 6.Medication and appt non compliance 7.MARIELENA 8.Obesity 9.DM 10.hyponatremia Allergies Allergy/AdvReac Type Severity Reaction Status Date / Time ceftriaxone Allergy Severe SHORTNESS Verified 03/07/22 08:36 OF BREATH lidocaine Allergy Severe SHORTNESS Verified 03/07/22 08:36 OF BREATH, diaphoretic, hives procaine Allergy Severe SHORTNESS Verified 03/07/22 08:36 OF BREATH, diaphoretic, hives amoxicillin Allergy Intermediate HIVES/FACIAL Verified 03/07/22 08:36 SWELLING clavulanic acid Allergy Intermediate HIVES/FACIAL Verified 03/07/22 08:36 SWELLING lisinopril Allergy Intermediate HIVES Verified 03/07/22 08:36 shellfish derived Allergy Unknown Verified 03/07/22 08:36 acetaminophen AdvReac Mild NAUSEA Verified 03/07/22 08:36 albuterol AdvReac Mild proair Verified 03/07/22 08:36 "trouble taking breaths" Fish Containing Products AdvReac Unknown Unknown Verified 03/07/22 08:36 Home Medications Medication Instructions Recorded Confirmed Type nitroglycerin 0.4 mg sublingual 0.4 mg sublingual UD PRN Chest Pain 04/24/19 03/07/22 History tablet (Nitrostat) albuterol sulfate 90 mcg/actuation 1 inh inhalation QID #8.5 grams 12/09/20 03/07/22 Rx aerosol inhaler metoprolol succinate 100 mg 100 mg PO BID #60 tabs 02/21/21 03/07/22 Rx tablet,extended release 24 hr sacubitril 97 mg-valsartan 103 mg 1 tab PO BID #60 tabs 02/21/21 03/07/22 Rx tablet (Entresto) Symbicort 160 mcg-4.5 2 inh inhalation BID #10.2 grams 05/04/21 03/07/22 Rx mcg/actuation HFA aerosol inhaler (budesonide-formoterol) aspirin 81 mg tablet,delayed 81 mg PO QAM 06/16/21 03/07/22 History release (Neisha Low Dose Aspirin) famotidine 20 mg tablet 20 mg PO QAM 06/16/21 03/07/22 History magnesium oxide 400 mg (241.3 mg 400 mg PO QAM 06/16/21 03/07/22 History magnesium) tablet esomeprazole magnesium 40 mg 40 mg PO BID 08/31/21 03/07/22 History capsule,delayed release spironolactone 25 mg tablet See Rx Instructions .Route .COMPLEX 08/31/21 03/07/22 History (Aldactone) insulin lispro protamine-lispro 40 unit (0.4 mL) subcut BID 30 11/03/21 03/07/22 Rx 100 unit/mL (50-50) subcutaneous days #24 mL pen (Humalog Mix 50-50 KwikPen) mupirocin 2 % topical ointment 1 applic topical TID Skin 11/25/21 03/07/22 Rx Infection #22 grams albuterol sulfate 2.5 mg/3 mL 2.5 mg inhalation Q6H 12/02/21 03/07/22 History (0.083 %) solution for nebulization dulaglutide 3 mg/0.5 mL 3 mg subcut WK 12/02/21 03/07/22 History subcutaneous pen injector cholecalciferol (vitamin D3) 50 150 mcg PO DAILY 12/27/21 03/07/22 History mcg (2,000 unit) tablet (Vitamin D3) pen needle, diabetic 31 gauge x #100 ea 12/27/21 03/07/22 Rx 5/16" (Comfort EZ Pen [place]) torsemide 20 mg tablet 20 mg PO .COMPLEX 12/27/21 03/07/22 History Patient History Medical History Abscess of multiple sites Acute and chronic respiratory failure Acute exacerbation of CHF (congestive heart failure) Bacteremia Chronic respiratory failure Dilatation of thoracic aorta Elevated troponin Fatty liver Hearing loss of both ears Housing instability, currently housed, at risk for homelessness Hx of local infection of skin and subcutaneous tissue Iliac aneurysm Lung nodule NICM (nonischemic cardiomyopathy) Pt admitted for elective ICD. Underwent procedure without any complications monitored over night and discharged home. 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 Heart disease Myocardial infarction Mother , age 67 of a ruptured neck vessel Sudden Other Depression Lung disease No pertinent family history Denies family history of Ovarian cancer Prostate cancer Breast cancer Colorectal cancer Social History Smoking Status: Former smoker Tobacco Type: Cigarettes Age Started Using Tobacco: 14; Age Quit Using Tobacco: 18; Cigarettes Per Day: 40; Second Hand Exposure: No; Hx Alcohol Use: No Hx Substance Use: No Preferred Language: Kyrgyz Communication Ability: Effective Visual Impairment: No Limitations Hearing Ability: Normal Therapist Physical Required: No Beliefs That Will Affect Care: None marital status: Current Living Situation: Spouse current occupational status: unemployed How many Children do You have: 0 Feels Safe at Home: Yes Childhood Exposure to Second-Hand Smoke: Yes Dental Care, Regularly: Yes Physical Activity Frequency: Does not Exercise Assistive Devices: Oxygen - Continuous, Scooter/Electric Scooter and Walker Review of Systems Review of Systems: Review of Systems: See HPI for pertinent positives. All other 10 point review of systems are negative. Physical Exam Physical Exam: General: no acute distress and stated age Head: normocephalic, no masses, lesions, tenderness or abnormalities Eyes: conjunctiva are pink and non-injected, sclera clear Neck: supple, no adenopathy, no bruits, normal jugular venous pulse, no hepatojugular reflux Chest: normal shape and normal respiratory effort Lungs: clear to auscultation and percussion Cardiac Exam: - regular rate & rhythm, no murmurs gallops or rubs - normal S1, normal S2 Pulses: 2(+) throughout Abdomen: Obese, soft, non-tender, no abnormal masses and no hepatosplenomegaly Musculoskeletal: no gait disturbance, no joint inflammation, no deforming arthritis Extremities: Chronic edema Neuro: grossly normal exam Results & Data Vital Signs (Past 12 Hours) Vital Signs Temp Pulse Pulse Pulse Resp BP Pulse Ox 05/09/22 07:44 36.5 C 88 20 131/89 96 05/09/22 07:14 87 18 97 05/09/22 07:14 87 18 97 05/09/22 03:34 36.3 C L 86 18 144/109 H 97 05/09/22 02:41 85 18 96 05/09/22 01:18 100 H 18 97 05/08/22 22:01 84 05/09/22 00:58 36.5 C 100 H 18 154/108 H 97 05/08/22 23:20 36.6 C 87 18 151/112 H 97 O2 Del Method O2 Flow Rate FiO2 05/09/22 07:44 Nasal Cannula 05/09/22 07:14 BiPAP 30 05/09/22 07:14 30 05/09/22 03:34 BiPAP 05/09/22 02:41 30 05/09/22 01:18 Nasal Cannula 5 05/08/22 22:01 05/09/22 00:58 Nasal Cannula 5 05/08/22 23:20 Nasal Cannula 5 Laboratory Results Laboratory Results - last 24 hr 05/08/22 05/08/22 05/08/22 10:37 10:37 17:07 WBC RBC Hgb Hct MCV MCH MCHC RDW Std Deviation RDW Coeff of Zoltan Plt Count MPV VBG pH 7.34 L VBG pCO2 53 H VBG pO2 30 VBG HCO3 29 VBG O2 Saturation < 60.0 VBG Base Excess 1.8 Sodium Potassium Chloride Carbon Dioxide Anion Gap BUN Creatinine Est Cr Clr Drug Dosing Est GFR ( Amer) Est GFR (Non-Af Amer) BUN/Creatinine Ratio Glucose POC Glucose 87 Calcium Troponin I High Sens B-Natriuretic Peptide 613 H 05/08/22 05/08/22 05/09/22 17:13 23:26 05:55 WBC RBC Hgb Hct MCV MCH MCHC RDW Std Deviation RDW Coeff of Zoltan Plt Count MPV VBG pH VBG pCO2 VBG pO2 VBG HCO3 VBG O2 Saturation VBG Base Excess Sodium 138 Potassium 3.8 Chloride 104 Carbon Dioxide 26 Anion Gap 8 BUN 13 Creatinine 0.98 Est Cr Clr Drug Dosing 138.6 Est GFR ( Amer) 107.5 Est GFR (Non-Af Amer) 92.7 BUN/Creatinine Ratio 13.3 Glucose 199 H POC Glucose Calcium 8.3 L Troponin I High Sens 31.5 H 30.1 H 25.8 H B-Natriuretic Peptide 05/09/22 05/09/22 05/09/22 05:55 05:55 08:06 WBC 7.78 RBC 4.97 Hgb 14.2 Hct 42.8 MCV 86.1 MCH 28.6 MCHC 33.2 RDW Std Deviation 46.0 RDW Coeff of Zoltan 14.7 H Plt Count 157 MPV 10.1 VBG pH VBG pCO2 VBG pO2 VBG HCO3 VBG O2 Saturation VBG Base Excess Sodium Potassium Chloride Carbon Dioxide Anion Gap BUN Creatinine Est Cr Clr Drug Dosing Est GFR ( Amer) Est GFR (Non-Af Amer) BUN/Creatinine Ratio Glucose POC Glucose 186 H Calcium Troponin I High Sens B-Natriuretic Peptide 503 H Medications Administered Current Inpatient Medications Albuterol (Albuterol 0.083% Nebu Soln 3 Ml Vial) 2.5 mg INH Q6R [facility]; Protocol Stop: 06/07/22 09:44 Last Admin: 05/09/22 07:14 Dose: 2.5 mg Aspirin (Aspirin 81 Mg Ectab) 81 mg PO QAM [facility] Stop: 06/08/22 08:59 Last Admin: 05/09/22 08:57 Dose: 81 mg Dextrose (Dextrose 50% 50 Ml Syringe) 25 - 50 ml IV UD PRN; Protocol PRN Reason: Hypoglycemia Protocol Stop: 06/08/22 02:33 Fluticasone/Vilanterol (Fluticasone/Vilanterol 200/25mcg 14 Puffs/Inhaler) 1 puffs INH DAILY [facility] Stop: 06/08/22 08:59 Last Admin: 05/09/22 08:44 Dose: 1 puffs Glucagon (Glucagon For Inj 1 Mg Vial) 1 mg SQ UD PRN; Protocol PRN Reason: Hypoglycemia Protocol Stop: 06/08/22 02:33 Glucose (Glucose 10 Tab/Tube) 4 - 8 tab PO UD PRN; Protocol PRN Reason: Hypoglycemia Treatment Stop: 06/08/22 02:33 Glucose (Glucose 40% Gel 15 Gm Tube) 15 - 30 gm PO UD PRN; Protocol PRN Reason: Hypoglycemia Protocol Stop: 06/08/22 02:33 Insulin Aspart (Insulin Aspart Per Unit Charge) 0 units SC ACHS [facility] Stop: 06/08/22 07:29 Last Admin: 05/09/22 08:57 Dose: 2 units Miscellaneous (Carbohydrates For Hypoglycemia ) 15 - 30 gm PO UD PRN PRN Reason: Hypoglycemia Protocol Stop: 06/08/22 02:33 Pantoprazole Sodium (Pantoprazole 40 Mg Tab) 40 mg PO BID [facility] Stop: 06/07/22 20:59 Last Admin: 05/09/22 08:57 Dose: 40 mg
[2022-05-09] MEDS: INSULIN ASPART PER UNIT CHARGE SC SCH ×4 (08:57→21:57)
[2022-05-09] MEDS: PANTOprazole 40 MG TAB PO SCH ×2 (08:57→21:25)
[2022-05-09] MEDS: ASPIRIN 81 MG ECTAB PO SCH (08:57)
[2022-05-09] MEDS: VALSARTAN/SACUBITRIL 51/49 MG TAB PO SCH ×2 (11:26→21:25)
--- NOTE | 2022-05-09 13:42 | Electrocardiogram Report ---
Test Reason : Blood Pressure : / mmHG Vent. Rate : 077 BPM Atrial Rate : 077 BPM P-R Int : 170 ms QRS Dur : 116 ms QT Int : 448 ms P-R-T Axes : 021 -30 140 degrees QTc Int : 506 ms Normal sinus rhythm with sinus arrhythmia Possible Left atrial enlargement Left axis deviation Left ventricular hypertrophy with repolarization abnormality Prolonged QT Abnormal ECG When compared with ECG of 08-MAY-2022 05:33, No significant change was found Confirmed by Rodney Cary ([id number]) on 05/09/2022 1:42:22 PM Referred By: REFERRED SELF Confirmed By:Rodney Cary
[2022-05-09] MEDS: SPIRONOLACTONE 25 MG TAB PO SCH (17:14)
[2022-05-09] MEDS: TORSEMIDE 10 MG TAB PO SCH (17:14)
--- NOTE | 2022-05-09 22:44 | Hospitalist Progress Note ---
Date of Service May 09, 2022 Assessment & Plan (1) Acute respiratory failure: Plan: will admit for above problem (2) CHF (congestive heart failure): Plan: acute systolic congestive heart failure will continue to diurese patient. Patient is now off BIPA and tolerating nasal cannula. will monitor his Is and Os and maintain his creatinine. recheck levels in AM Chronic respiratory failure: Plan: Supplemental O2 as needed. BiPAP at night. COPD (chronic obstructive pulmonary disease): Plan: Continue home inhalers as tolerated. COPD type: unspecified COPD Qualified Code(s): J44.9 - Chronic obstructive pulmonary disease, unspecified Combined systolic and diastolic heart failure: Plan: As above Heart failure chronicity: acute Qualified Code(s): I50.41 - Acute combined systolic (congestive) and diastolic (congestive) heart failure NICM (nonischemic cardiomyopathy): Plan: As above Hypertension: Plan: Likely degree of noncompliance. continue home meds Hypertension type: unspecified Qualified Code(s): I10 - Essential (primary) hypertension Diabetes mellitus type II, uncontrolled: Plan: To be placed on insulin sliding scale Appreciate pharmacy's input. A1c 13.9 concerning again for patient non-compliance. Glycemic state: with hyperglycemia Qualified Code(s): E11.65 - Type 2 diabetes mellitus with hyperglycemia (3) Obstructive sleep apnea: Admission and Anticipated Discharge Date Admission Date: May 08, 2022 Subjective Patient reports feeling better. He states he is not quite at baseline Review of Systems 2 Review of Systems: All systems reviewed & are unremarkable except as noted in HPI & below Physical Exam Physical Exam: The patient is awake, alert and oriented 3, morbidly obese, normocephalic and atraumatic, lying in bed and in moderate respiratory distress with accessory muscle use HEENT--PERRL, EOMI, mucous membranes and oropharynx dry. Neck--supple. No JVD. No bruits. Thyroid normal, trachea midline, no adenopathy. Heart--normal S1 and S2. No murmurs, rubs or gallops. Lungs--coarse breath sounds bilaterally with wheezes and rhonchi throughout. Moderate respiratory distress with accessory muscle use, improving on BiPAP Abdomen--normal bowel sounds and soft. Nontender. Nondistended. Morbidly obese Extremities--2+ bilateral pretibial pitting edema Dermatologic--normal skin turgor, normal color, no abnormal lymph nodes, no rash. Neurologic--cranial nerves II through XII grossly intact. Rheumatologic--normal range of motion. Psychiatric--normal affect. Results & Data Results & Data Vital Signs (Past 12 Hours) Vital Signs Temp Pulse Pulse Resp BP BP Pulse Ox 05/09/22 20:23 101 H 20 96 05/09/22 20:06 36.7 C 98 H 18 155/113 H 95 05/09/22 16:03 36.3 C L 87 16 154/95 H 98 05/09/22 15:53 100 H 05/09/22 14:13 94 H 18 96 05/09/22 11:49 36.4 C L 89 16 167/116 H 141/97 H 97 O2 Del Method O2 Flow Rate 05/09/22 20:23 Nasal Cannula 4 05/09/22 20:06 Room Air 05/09/22 16:03 Nasal Cannula 5 05/09/22 15:53 05/09/22 14:13 Nasal Cannula 5 05/09/22 11:49 Room Air PG Care Time/CCT Total # of Minutes Spent Total Time Spent with Patient: Total time spent is greater than 50% in coordination of care (as documented) at patient's floor/unit and/or counseling patient: Coding Level of Care Code 51849 SUB INP/OBS CARE 2/35MIN Diagnoses Acute respiratory failure J96.00 CHF (congestive heart failure) I50.9 Obstructive sleep apnea G47.33
[2022-05-10] MEDS: ALBUTEROL 0.083% NEBU SOLN 3 ML VIAL INH SCH ×4 (00:55→19:49)
[2022-05-10 06:51] LABS: Hematocrit (blood only) 44.2 % (42.0-52.0); Hemoglobin 14.9 g/dl (14.0-18.0); Mean Corpuscular Hgb Conc 33.7 g/dL (32.0-36.0); Mean Platelet Volume 10.3 fL (9.4-12.4); Platelet Count 153 K/uL (130-400); RDW Coefficient of Variation 14.3 % (11.5-14.5); RDW Standard Deviation 44.6 fL (36.4-46.3); Red Blood Count 5.14 M/uL (4.70-6.10); White Blood Count 8.89 K/ul (4.8-10.8)
[2022-05-10 07:24] LABS: BUN Creatinine Ratio 10.2 (10-20); Calcium 8.3 mg/dl (8.6-10.3); Creatinine Clr Calc Pharmacy 135.7 ml/min; Est GFR (African American) 107.5 ml/min; Est GFR (Non-African American) 92.7 ml/min; Potassium 3.7 mmol/L (3.5-5.1)
--- NOTE | 2022-05-10 09:27 | Cardiology Progress Note ---
Date of Service May 10, 2022 Assessment & Plan (1) Acute respiratory failure: (2) Chest pain: (3) CHF (congestive heart failure): (4) Hypoxia: (5) Morbid obesity with BMI of 50.0-59.9, adult: (6) Medical non-compliance: Plan The patient had a large diuresis. He is improving. I have added back his metoprolol XL at 25 mg twice daily. No other changes today. Admission and Anticipated Discharge Date Admission Date: May 08, 2022 Subjective The patient had a large diuresis yesterday. He is feeling better. Review of Systems Review of Systems: Review of Systems: See HPI for pertinent positives. All other 10 point review of systems are negative. Physical Exam Physical Exam: General: no acute distress and stated age Head: normocephalic, no masses, lesions, tenderness or abnormalities Eyes: conjunctiva are pink and non-injected, sclera clear Neck: supple, no adenopathy, no bruits, normal jugular venous pulse, no hepatojugular reflux Chest: normal shape and normal respiratory effort Lungs: clear to auscultation and percussion Cardiac Exam: - regular rate & rhythm, no murmurs gallops or rubs - normal S1, normal S2 Pulses: 2(+) throughout Abdomen: Obese, soft, non-tender, no abnormal masses and no hepatosplenomegaly Musculoskeletal: no gait disturbance, no joint inflammation, no deforming arthritis Extremities: Chronic edema Neuro: grossly normal exam Results & Data Vital Signs (Past 12 Hours) Vital Signs Temp Pulse Pulse Resp BP Pulse Ox O2 Del Method 05/10/22 07:38 101 H 18 94 Nasal Cannula 05/10/22 06:54 36.5 C 84 18 141/90 H 92 Nasal Cannula 05/09/22 22:00 96 H 05/10/22 03:58 36.2 C L 88 18 142/83 H 96 Nasal Cannula 05/10/22 00:56 84 18 96 Nasal Cannula 05/09/22 23:48 36.3 C L 102 H 20 164/96 H 95 Nasal Cannula O2 Flow Rate 05/10/22 07:38 3 05/10/22 06:54 4 05/09/22 22:00 05/10/22 03:58 4 05/10/22 00:56 4 05/09/22 23:48 4 Laboratory Results Laboratory Results - last 24 hr 05/09/22 05/09/22 05/09/22 11:18 16:46 21:31 WBC RBC Hgb Hct MCV MCH MCHC RDW Std Deviation RDW Coeff of Zoltan Plt Count MPV Sodium Potassium Chloride Carbon Dioxide Anion Gap BUN Creatinine Est Cr Clr Drug Dosing Est GFR ( Amer) Est GFR (Non-Af Amer) BUN/Creatinine Ratio Glucose POC Glucose 174 H 153 H 154 H Calcium B-Natriuretic Peptide 05/10/22 05/10/22 05/10/22 06:10 06:10 06:10 WBC 8.89 RBC 5.14 Hgb 14.9 Hct 44.2 MCV 86.0 MCH 29.0 MCHC 33.7 RDW Std Deviation 44.6 RDW Coeff of Zoltan 14.3 Plt Count 153 MPV 10.3 Sodium 140 Potassium 3.7 Chloride 101 Carbon Dioxide 31 Anion Gap 8 BUN 10 Creatinine 0.98 Est Cr Clr Drug Dosing 135.7 Est GFR ( Amer) 107.5 Est GFR (Non-Af Amer) 92.7 BUN/Creatinine Ratio 10.2 Glucose 165 H POC Glucose Calcium 8.3 L B-Natriuretic Peptide 446 H 05/10/22 07:28 WBC RBC Hgb Hct MCV MCH MCHC RDW Std Deviation RDW Coeff of Zoltan Plt Count MPV Sodium Potassium Chloride Carbon Dioxide Anion Gap BUN Creatinine Est Cr Clr Drug Dosing Est GFR ( Amer) Est GFR (Non-Af Amer) BUN/Creatinine Ratio Glucose POC Glucose 177 H Calcium B-Natriuretic Peptide Medications Administered Current Inpatient Medications Albuterol (Albuterol 0.083% Nebu Soln 3 Ml Vial) 2.5 mg INH Q6R SUKHWINDER; Protocol Stop: 06/07/22 09:44 Last Admin: 05/10/22 07:37 Dose: 2.5 mg Aspirin (Aspirin 81 Mg Ectab) 81 mg PO QAM SUKHWINDER Stop: 06/08/22 08:59 Last Admin: 05/09/22 08:57 Dose: 81 mg Dextrose (Dextrose 50% 50 Ml Syringe) 25 - 50 ml IV UD PRN; Protocol PRN Reason: Hypoglycemia Protocol Stop: 06/08/22 02:33 Fluticasone/Vilanterol (Fluticasone/Vilanterol 200/25mcg 14 Puffs/Inhaler) 1 puffs INH DAILY SUKHWINDER Stop: 06/08/22 08:59 Last Admin: 05/09/22 08:44 Dose: 1 puffs Glucagon (Glucagon For Inj 1 Mg Vial) 1 mg SQ UD PRN; Protocol PRN Reason: Hypoglycemia Protocol Stop: 06/08/22 02:33 Glucose (Glucose 10 Tab/Tube) 4 - 8 tab PO UD PRN; Protocol PRN Reason: Hypoglycemia Treatment Stop: 06/08/22 02:33 Glucose (Glucose 40% Gel 15 Gm Tube) 15 - 30 gm PO UD PRN; Protocol PRN Reason: Hypoglycemia Protocol Stop: 06/08/22 02:33 Insulin Aspart (Insulin Aspart Per Unit Charge) 0 units SC ACHS SUKHWINDER Stop: 06/08/22 07:29 Last Admin: 05/09/22 21:57 Dose: 3 units Metoprolol Succinate (Metoprolol Succ 25mg Ext Rel Tab) 25 mg PO BID SUKHWINDER Stop: 06/09/22 09:29 Miscellaneous (Carbohydrates For Hypoglycemia ) 15 - 30 gm PO UD PRN PRN Reason: Hypoglycemia Protocol Stop: 06/08/22 02:33 Pantoprazole Sodium (Pantoprazole 40 Mg Tab) 40 mg PO BID SUKHWINDER Stop: 06/07/22 20:59 Last Admin: 05/09/22 21:25 Dose: 40 mg Sacubitril/Valsartan (Valsartan/Sacubitril 51/49 Mg Tab) 1 tab PO BID SUKHWINDER Stop: 06/08/22 10:29 Last Admin: 05/09/22 21:25 Dose: 1 tab Spironolactone (Spironolactone 25 Mg Tab) 25 mg PO BID17 SUKHWINDER Stop: 06/08/22 16:59 Last Admin: 05/09/22 17:14 Dose: 25 mg Torsemide (Torsemide 10 Mg Tab) 40 mg PO BID17 SUKHWINDER Stop: 06/08/22 16:59 Last Admin: 05/09/22 17:14 Dose: 40 mg
[2022-05-10] MEDS: SPIRONOLACTONE 25 MG TAB PO SCH ×2 (09:30→17:42)
[2022-05-10] MEDS: VALSARTAN/SACUBITRIL 51/49 MG TAB PO SCH ×2 (09:30→19:47)
[2022-05-10] MEDS: ASPIRIN 81 MG ECTAB PO SCH (09:30)
[2022-05-10] MEDS: PANTOprazole 40 MG TAB PO SCH (09:30)
[2022-05-10] MEDS ORDERED: METOPROLOL SUCC 25MG EXT REL TAB PO SCH (09:30)
[2022-05-10] MEDS: FLUTICASONE/VILANTEROL 200/25MCG 14 PUFFS/INHALER INH SCH (09:30)
[2022-05-10] MEDS: TORSEMIDE 10 MG TAB PO SCH ×2 (09:30→17:42)
[2022-05-10] MEDS: INSULIN ASPART PER UNIT CHARGE SC SCH ×3 (09:35→17:42)
[2022-05-10] MEDS ORDERED: HEPARIN SOD 5,000 UNIT/0.5 ML VIAL SQ STA (14:46)
--- NOTE | 2022-05-11 23:12 | Discharge Summary ---
Date of Service May 10, 2022 Admission HPI Per Admitting Provider Patient is a 46-year-old male with a significant past medical history including hypertension, hyperlipidemia, heart failure with reduced ejection fraction, nonischemic cardiomyopathy with an EF of 15 to 20%, poorly controlled diabetes, chronic hemoptysis, and medication noncompliance. Patient presented to the emergency department today with a chief complaint of shortness of breath. Patient is on BIPAP, he reports that he has been more short of breath over the past week. He denies any fever, chills, chest pain, palpitations, headaches, dizziness, lightheadedness, nausea, vomiting, or abdominal discomfort. Principal Diagnosis acute respiratory failure Discharge Exam The patient is awake, alert and oriented 3, morbidly obese, normocephalic and atraumatic, lying in bed and in moderate respiratory distress with accessory muscle use HEENT--PERRL, EOMI, mucous membranes and oropharynx dry. Neck--supple. No JVD. No bruits. Thyroid normal, trachea midline, no adenopathy. Heart--normal S1 and S2. No murmurs, rubs or gallops. Lungs--clear Abdomen--normal bowel sounds and soft. Nontender. Nondistended. Morbidly obese Extremities--decreased edema Dermatologic--normal skin turgor, normal color, no abnormal lymph nodes, no rash. Neurologic--cranial nerves II through XII grossly intact. Rheumatologic--normal range of motion. Psychiatric--normal affect. Discharge Data Allergies Allergy/AdvReac Type Severity Reaction Status Date / Time ceftriaxone Allergy Severe SHORTNESS Verified 03/07/22 08:36 OF BREATH lidocaine Allergy Severe SHORTNESS Verified 03/07/22 08:36 OF BREATH, diaphoretic, hives procaine Allergy Severe SHORTNESS Verified 03/07/22 08:36 OF BREATH, diaphoretic, hives amoxicillin Allergy Intermediate HIVES/FACIAL Verified 03/07/22 08:36 SWELLING clavulanic acid Allergy Intermediate HIVES/FACIAL Verified 03/07/22 08:36 SWELLING lisinopril Allergy Intermediate HIVES Verified 03/07/22 08:36 shellfish derived Allergy Unknown Verified 03/07/22 08:36 acetaminophen AdvReac Mild NAUSEA Verified 03/07/22 08:36 albuterol AdvReac Mild proair Verified 03/07/22 08:36 "trouble taking breaths" Fish Containing Products AdvReac Unknown Unknown Verified 03/07/22 08:36 Consultations 05/08/22 07:43 ED Decision to Admit Stat 05/08/22 09:00 Consult Cardiology Routine Hospital Course (1) Acute respiratory failure: will admit for above problem (2) CHF (congestive heart failure): acute systolic congestive heart failure will continue to diurese patient. Patient is now off BIPA and tolerating nasal cannula. improved with BID torsemide. Patient now on 3 liters nasal cannula. Chronic respiratory failure: Plan: Supplemental O2 as needed. BiPAP at night. COPD (chronic obstructive pulmonary disease): Plan: Continue home inhalers as tolerated. COPD type: unspecified COPD Qualified Code(s): J44.9 - Chronic obstructive pulmonary disease, unspecified Combined systolic and diastolic heart failure: Plan: As above Heart failure chronicity: acute Qualified Code(s): I50.41 - Acute combined systolic (congestive) and diastolic (congestive) heart failure NICM (nonischemic cardiomyopathy): Plan: As above Hypertension: Plan: Likely degree of noncompliance. continue home meds Hypertension type: unspecified Qualified Code(s): I10 - Essential (primary) hypertension Diabetes mellitus type II, uncontrolled: Plan: To be placed on insulin sliding scale Appreciate pharmacy's input. A1c 13.9 concerning again for patient non-compliance. Glycemic state: with hyperglycemia Qualified Code(s): E11.65 - Type 2 diabetes mellitus with hyperglycemia (3) Obstructive sleep apnea: Total Time Total Time Spent Total Time Spent (In Minutes): 32 Discharge Plan Discharge Items Patient Disposition: Home - Self-Care Reason For Visit: SYSTOLIC CONGESTIVE HEART FAILURE Discharge Diagnosis: CHF Activity: Resume your previous activity Non-emergency contact: Primary Care Provider Call non-emergency contact if: you have any medication questions Follow-up/Referrals: Gosia Becker MD [Primary Care Provider] - Diet: Low Sodium (2gm) Addtl Attending Provider Instructions: Call your Primary Care doctor if any of the following symptoms or problems start or get worse: * Shortness of breath or difficulty breathing * Wake up at night short of breath * Chest pain * Cough * Swelling of your hands, feet, or legs * More fatigued or tired with your normal activity * Palpitations - sudden fast heart beats WEIGHT * Weigh yourself every morning after using the bathroom. * Use the same scale. * Wear the same amount of clothing. * Write your weight down on a chart. * Call your Primary Care doctor if you gain more than 2-3 pounds in 1-2 days. MEDICATIONS * Use this discharge instruction sheet for medication instructions. * Take your medications at the time your doctor ordered. * Do not skip a dose of your medicines. * If you miss a dose of medicine, take it as soon as possible, but DO NOT DOUBLE A DOSE. * Read your medicine information when you get home. * Know all of the side effects of your medicine. If in doubt, ask your pharmacist * Call your Primary Care doctor's office if you have any side effects. * Be sure all of your doctors know what medicine and herbs you take (including cold, flu, and herbal medicine). Take the following with you to your follow-up doctor appointments: * Weight Chart * Medication List * List of questions Do not drink excessive alcohol, beer or wine. Pending Studies at Discharge: No Stand-Alone Forms: [facility], Smoking Cessation Medications and DC Order Prescriptions: Continued budesonide-formoterol [Symbicort] 160-4.5 mcg/actuation HFA aerosol inhaler 2 inh inhalation BID Qty: 10.2 2RF Rx Instructions: 2 puffs twice per day. Rinse mouth after each use albuterol sulfate 90 mcg/actuation HFA aerosol inhaler 1 inh inhalation QID Qty: 8.5 2RF Entresto 97-103 mg tablet 1 tab PO BID Qty: 60 5RF metoprolol succinate 100 mg tablet extended release 24 hr 100 mg PO BID Qty: 60 5RF mupirocin 2 % ointment 1 applic topical TID Qty: 22 1RF torsemide 20 mg tablet 20 mg PO .COMPLEX Rx Instructions: 20 mg orally Take 4 tabs in the Am and 2 tabs in the PM; (DME) pen needle, diabetic [Comfort EZ Pen [place]] 31 gauge x 5/16" needle See Rx Instructions .Route Qty: 100 4RF Rx Instructions: use when administering insuling BID nitroglycerin [Nitrostat] 0.4 mg tablet, sublingual 0.4 mg sublingual UD PRN (Reason: Chest Pain) cholecalciferol (vitamin D3) [Vitamin D3] 50 mcg (2,000 unit) tablet 150 mcg PO DAILY aspirin [Neisha Low Dose Aspirin] 81 mg tablet,delayed release (DR/EC) 81 mg PO QAM magnesium oxide 400 mg (241.3 mg magnesium) tablet 400 mg PO QAM famotidine 20 mg tablet 20 mg PO QAM esomeprazole magnesium 40 mg capsule,delayed release(DR/EC) 40 mg PO BID spironolactone [Aldactone] 25 mg tablet See Rx Instructions .ROUTE .COMPLEX Rx Instructions: 75 mg orally ;2 in the morning and 1 tablet at night Humalog Mix 50-50 KwikPen 100 unit/mL (50-50) insulin pen 40 unit subcut BID 30 Days Qty: 24 5RF Rx Instructions: 40 units inj twice per day. albuterol sulfate 2.5 mg /3 mL (0.083 %) solution for nebulization 2.5 mg inhalation Q6H Rx Instructions: Use every 6 hours as needed with nebulizer dulaglutide 3 mg/0.5 mL pen injector 3 mg subcut WK Rx Instructions: HAS TO BE APPROVED THROUGH INSURANCE. NOT STARTED YET. Please dispense 12 pens with 1 refill Discharge Orders: Discharge Order- CHF (Routine); Ordered 05/10/22 Ordered By: Shemar Sky Admission Data Admit Date/Time: 05/08/22 08:56 Attending Provider: Shemar Sky Admit Provider: Sheamr Sky Primary Care Provider: Gosia Becker Other Providers: Shemar Sky ; Luz Elena Garya ; Yuri Johns ; Vick Benoit ; Marcus aC ; Shon Hernandez ; Ilir Bustamante ; Cleveland Otoole ; Shyanne Stern ; Danya Ta ; Luz Elena Roberts ; Konrad Langston ; Lala Krishnamurthy. Other Interventions: Discharge Summary Assessment (RN) Last Done: 05/10/22 19:43 Coding Level of Care Code 70844 INP/OBS DISCH >30 MIN Diagnoses Acute respiratory failure J96.00 CHF (congestive heart failure) I50.9 Obstructive sleep apnea G47.33
== END 2022-05-10 20:30 | disposition home or self-care (01) | DRG 189 ==
LOC: ED 05:25 → EDINP 08:56 → 4W 16:20

== ENCOUNTER 2023-03-29 18:57 | Inpatient (IN) ==
--- NOTE | 2023-03-29 19:33 | Emergency Department Note ---
Impression & Plan Acute respiratory failure, COPD (chronic obstructive pulmonary disease), Combined systolic and diastolic heart failure, Hypertensive emergency ED Provider Note NAME: HARDIK LOVE AGE: 47 SEX: M ARRIVES VIA: Ambulance INFORMANT: Patient ED PROVIDER(S): Marv Cintron MD CHIEF COMPLAINT: Shortness of breath. PLAN: Disposition: Admit MEDICAL DECISION MAKING: The patient is a pleasant 47-year-old gentleman with a past medical history of chronic respiratory failure, combined systolic and diastolic heart failure, COPD, MARIELENA, uncontrolled diabetes, intellectual disability, medical noncompliance who presents to the emergency department via EMS and then accompanied by family for evaluation of acute onset shortness of breath which has progressively worsened since 8 AM this morning in setting of having increased shortness of breath over the past couple of days. EMS found the patient to have O2 saturation of 70s on room air. The patient was given 4 sprays of nitroglycerin by EMS. He was placed on CPAP by EMS for transport with O2 saturation improving to 95%. The patient's family member reports that patient eventually decided that he needed to come to the emergency department because he was feeling so poorly. Patient reports he was having pain in his right arm and chest continuing since this morning. He denies any recent fevers, chills, GI or symptoms. He reports he has been taking his medications as prescribed. On my evaluation the patient is ill-appearing and in severe respiratory distress with accessory muscle use. He is afebrile with blood pressure in the 180s-120s with heart rate in the 120s and respiratory rate in the 30s. Lung sounds with poor air movement on auscultation diminished breath sounds at the bases and underlying wheeze. Patient was placed on BiPAP upon arrival and glycerin paste was administered in addition to treatment with Solu-Medrol and DuoNeb. The patient subsequently had a rapid stabilization of his respiratory status with resolution of work of breathing. Blood pressure, HR, RR with improved. EKG without overt acute ischemia. Chest x-ray with bilateral airspace opacities consistent with pulmonary edema per my preliminary independent interpretation. WBC 11.3, nonspecific. H/H and platelets within normal limits. ABG with pH of 7.3 with normal pCO2. Chemistry without metabolic acidosis. LFTs unremarkable. High-sensitivity troponin 18.4, within normal limits. BNP 695, consistent with the patient's hypervolemic appearance and presentation consistent with congestive failure. Procalcitonin is not elevated. Lipase is normal. Respiratory BioFire was negative. IV Bumex ordered for diuresis. Case was discussed with SAFIA Arias hospitalist, who will evaluate the patient for admission. Triage Nursing notes reviewed and agree them. Prior/external medical records reviewed Vital Signs: reviewed Differential diagnosis: Reactive airway disease, pneumonia, pneumothorax, COPD, CHF, infections, cardiac ischemia, pulmonary embolism, musculoskeletal, gastrointestinal, as well as other pathologies. ER treatment provided: See below. Diagnostics interpreted by me: ECG: Sinus tachycardia with occasional PVCs, 122 bpm, LVH, no overt ST elevation or depression, QTc 473, QRS 114. Cardiac Monitoring: An order for continuous cardiac monitoring was placed and demonstrated Sinus tachycardia with occasional PVCs, 122 bpm Laboratory studies: See below Imaging studies: See below Consultation(s): SAFIA Arias hospitalist HPI: The patient is a pleasant 47-year-old gentleman with a past medical history of chronic respiratory failure, combined systolic and diastolic heart failure, COPD, MARIELENA, uncontrolled diabetes, intellectual disability, medical noncompliance who presents to the emergency department via EMS and then accompanied by family for evaluation of acute onset shortness of breath which has progressively worsened since 8 AM this morning in setting of having increased shortness of breath over the past couple of days. EMS found the patient to have O2 saturation of 70s on room air. The patient was given 4 sprays of nitroglycerin by EMS. He was placed on CPAP by EMS for transport with O2 saturation improving to 95%. The patient's family member reports that patient eventually decided that he needed to come to the emergency department because he was feeling so poorly. Patient reports he was having pain in his right arm and chest continuing since this morning. He denies any recent fevers, chills, GI or symptoms. He reports he has been taking his medications as prescribed. ROS: See above HPI for pertinent positives & negatives. A total of 10 systems reviewed and were otherwise negative. VITALS:See Below PHYSICAL EXAMINATION: GENERAL: Awake, alert, ill-appearing, severe respiratory distress with accessory muscle use. BMI 53.2. HENT: Normocephalic, atraumatic. Oropharynx unremarkable. EYES: Normal conjunctiva. Sclera non-icteric. NECK: Supple. No nuchal rigidity. FROM. No JVD. RESPIRATORY: Lung sounds with poor air movement on auscultation diminished breath sounds at the bases and underlying wheeze. CARDIAC: Tachycardic rate, normal rhythm. Extremities warm and well perfused. Pulses equal. ABDOMEN: Soft, non-distended. No tenderness to palpation. No rebound or guarding. No masses. MUSCULOSKELETAL: Chest examination reveals no tenderness. The back is symmetrical on inspection without obvious abnormality. There is no CVA tenderness to palpation. No joint edema. LOWER EXTREMITIES: Calves are equal size bilaterally and non-tender. 1+ BLE edema. No discoloration. NEURO: Normal sensorium. No sensory or motor deficits noted. SKIN: No jaundice noted. ED COURSE: Critical Care: I have personally spent greater than 65 minutes of critical care time in the direct management of this patient. This includes bedside care, interpretation of diagnostic studies, and testing, discussion with consultants, patient, and family members, and other required patient management activities. This 65 minutes is in excess of all separately billable procedures. 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 Underwent procedure without any complications monitored over night and discharged home. Dilatation of thoracic aorta Iliac aneurysm Vitamin D insufficiency Previously deficient, taking Vit D supplementation Umbilical hernia Lung nodule Fatty liver Surgical History History of carpal tunnel surgery S/P tonsillectomy History of cholecystectomy Family History Father , age 57 of an [place]. Heart disease Myocardial infarction Mother , age 67 of a ruptured neck vessel Sudden Other Depression Lung disease No pertinent family history Denies family history of Ovarian cancer Prostate cancer Breast cancer Colorectal cancer Social History Smoking Status: Never smoker Tobacco Type: Cigarettes Age Started Using Tobacco: 14; Age Quit Using Tobacco: 18; Cigarettes Per Day: 40; Second Hand Exposure: No; Do You Dip or Chew Tobacco: No; Hx Alcohol Use: No Hx Substance Use: No Preferred Language: [place] Islander Communication Ability: Effective Visual Impairment: No Limitations Hearing Ability: Normal Immigration Attorney Required: No Beliefs That Will Affect Care: None marital status: Current Living Situation: Spouse current occupational status: unemployed How many Children do You have: 0 Feels Safe at Home: Yes Childhood Exposure to Second-Hand Smoke: Yes Dental Care, Regularly: Yes Physical Activity Frequency: Does not Exercise Assistive Devices: Oxygen - Continuous, Scooter/Electric Scooter and Walker Allergies Allergies Allergy/AdvReac Type Severity Reaction Status Date / Time ceftriaxone Allergy Severe SHORTNESS Verified 03/26/23 13:55 OF BREATH lidocaine Allergy Severe SHORTNESS Verified 03/26/23 13:55 OF BREATH, diaphoretic, hives procaine Allergy Severe SHORTNESS Verified 03/26/23 13:55 OF BREATH, diaphoretic, hives amoxicillin Allergy Intermediate HIVES/FACIAL Verified 03/26/23 13:55 SWELLING clavulanic acid Allergy Intermediate HIVES/FACIAL Verified 03/26/23 13:55 SWELLING lisinopril Allergy Intermediate HIVES Verified 03/26/23 13:55 shellfish derived Allergy Unknown Verified 03/26/23 13:55 acetaminophen AdvReac Mild NAUSEA Verified 03/26/23 13:55 albuterol AdvReac Mild proair Verified 03/26/23 13:55 "trouble taking breaths" Fish Containing Products AdvReac Unknown Unknown Verified 03/26/23 13:55 Home Meds Home Medications Medication Instructions Recorded Confirmed nitroglycerin 0.4 mg sublingual 0.4 mg sublingual UD PRN Chest Pain 04/24/19 02/16/23 tablet (Nitrostat) aspirin 81 mg tablet,delayed 81 mg PO QAM 06/16/21 03/26/23 release (Neisha Low Dose Aspirin) albuterol sulfate 2.5 mg/3 mL 2.5 mg inhalation Q6H 12/02/21 02/16/23 (0.083 %) solution for nebulization budesonide 0.25 mg/2 mL suspension 0.25 mg inhalation DAILY PRN 09/15/22 02/16/23 for nebulization Shortness Of Breath isosorbide mononitrate 30 mg 60 mg PO DAILY 09/15/22 02/16/23 tablet,extended release 24 hr spironolactone 25 mg tablet 25 mg PO TID 09/15/22 02/16/23 (Aldactone) torsemide 20 mg tablet 100 mg .Route BID 10/12/22 02/16/23 Previous Rx's Medication Instructions Recorded albuterol sulfate 90 mcg/actuation 1 inh inhalation QID #8.5 grams 12/09/20 aerosol inhaler metoprolol succinate 100 mg 100 mg PO BID #60 tabs 02/21/21 tablet,extended release 24 hr sacubitril 97 mg-valsartan 103 mg 1 tab PO BID #60 tabs 02/21/21 tablet (Entresto) blood-glucose meter (OneTouch #1 ea 10/12/22 Verio Flex Meter) lancets 30 gauge (OneTouch Delica #100 ea 10/12/22 Plus Lancet) Symbicort 160 mcg-4.5 2 inh inhalation BID #3 Inhalers 11/14/22 mcg/actuation HFA aerosol inhaler (budesonide-formoterol) blood sugar diagnostic (OneTouch #100 ea 01/17/23 Verio test strips) dulaglutide 4.5 mg/0.5 mL 4.5 mg (0.5 mL) subcut Q7D #2 mL 01/17/23 subcutaneous pen injector (Trulicity) Lantus Solostar U-100 Insulin 100 20 unit (0.2 mL) subcut HS 30 days 01/18/23 unit/mL (3 mL) subcutaneous pen #18 mL (insulin glargine) flash glucose scanning reader #1 ea 02/09/23 (FreeStyle Karla 2 [place]) flash glucose sensor (FreeStyle #2 ea 02/09/23 Karla 2 Sensor kit) pen needle, diabetic 31 gauge x #100 ea 02/16/23 5/16" (Comfort EZ Pen [place]) nystatin 100,000 unit/gram topical 1 applic topical BID #60 grams 03/26/23 powder Results & Data (ED) Vital Signs Vital Signs - 24 hr 03/29/23 19:06 03/29/23 19:06 03/29/23 19:06 Pulse Rate 127 H 128 H Pulse Rate [Finger] Pulse Rate from SpO2 Sensor Respiratory Rate 30 H Respiratory Effort / Characteristics Accessory Muscle Use Grunting Labored Short of Breath Accessory Muscle Use Labored Short of Breath SOB on Exertion Respiratory Depth Retractive Respiratory Pattern Tachypnea Blood Pressure 180/129 H Blood Pressure Mean 146 Pulse Oximetry 94 Oxygen Delivery Method BiPAP Fraction of Inspired Oxygen Sepsis Recent Fever Within 48 Hours No Sepsis New/Unexplained Change in Mental Status No Sepsis Action Taken by Nursing Physician Notified 03/29/23 19:06 03/29/23 19:26 03/29/23 19:30 Pulse Rate 130 H 122 H 132 H Pulse Rate [Finger] Pulse Rate from SpO2 Sensor 129 H 122 H 132 H Respiratory Rate 30 H 29 H 30 H Respiratory Effort / Characteristics Respiratory Depth Respiratory Pattern Blood Pressure 191/140 H 186/124 H Blood Pressure Mean 157 144 Pulse Oximetry 96 97 95 Oxygen Delivery Method Fraction of Inspired Oxygen Sepsis Recent Fever Within 48 Hours Sepsis New/Unexplained Change in Mental Status Sepsis Action Taken by Nursing 03/29/23 19:32 03/29/23 20:00 03/29/23 20:01 Pulse Rate 129 H 120 H 120 H Pulse Rate [Finger] Pulse Rate from SpO2 Sensor 129 H 120 H 119 H Respiratory Rate 28 H 27 H 25 H Respiratory Effort / Characteristics Respiratory Depth Respiratory Pattern Blood Pressure 182/117 H Blood Pressure Mean 138 Pulse Oximetry 95 94 95 Oxygen Delivery Method Fraction of Inspired Oxygen Sepsis Recent Fever Within 48 Hours Sepsis New/Unexplained Change in Mental Status Sepsis Action Taken by Nursing 03/29/23 20:06 03/29/23 20:09 03/29/23 20:30 Pulse Rate 118 H 105 H Pulse Rate [Finger] 114 H Pulse Rate from SpO2 Sensor 102 H Respiratory Rate 24 20 Respiratory Effort / Characteristics Spontaneous Respiratory Depth Respiratory Pattern Blood Pressure 157/115 H Blood Pressure Mean 129 Pulse Oximetry 95 95 94 Oxygen Delivery Method BiPAP BiPAP Fraction of Inspired Oxygen 45 Sepsis Recent Fever Within 48 Hours Sepsis New/Unexplained Change in Mental Status Sepsis Action Taken by Nursing 03/29/23 21:30 03/29/23 22:00 03/29/23 22:01 Pulse Rate 107 H 101 H 108 H Pulse Rate [Finger] Pulse Rate from SpO2 Sensor 106 H 101 H 108 H Respiratory Rate 19 21 23 Respiratory Effort / Characteristics Respiratory Depth Respiratory Pattern Blood Pressure 148/111 H 169/124 H Blood Pressure Mean 123 139 Pulse Oximetry 95 95 96 Oxygen Delivery Method Fraction of Inspired Oxygen Sepsis Recent Fever Within 48 Hours Sepsis New/Unexplained Change in Mental Status Sepsis Action Taken by Nursing 03/29/23 22:30 03/29/23 23:00 03/29/23 23:08 Pulse Rate 105 H 118 H 106 H Pulse Rate [Finger] Pulse Rate from SpO2 Sensor 105 H 119 H Respiratory Rate 23 22 Respiratory Effort / Characteristics Respiratory Depth Respiratory Pattern Blood Pressure 152/102 H Blood Pressure Mean 118 Pulse Oximetry 95 97 Oxygen Delivery Method Fraction of Inspired Oxygen Sepsis Recent Fever Within 48 Hours Sepsis New/Unexplained Change in Mental Status Sepsis Action Taken by Nursing Laboratory Data Attestation: I reviewed the patient's lab results. 03/29/23 19:12 03/29/23 20:54 Lab Results 03/29/23 03/29/23 03/29/23 Range/Units 19:12 20:54 Unknown WBC 11.39 H (4.8-10.8) K/ul RBC 5.65 (4.70-6.10) M/uL Hgb 16.2 (14.0-18.0) g/dl Hct 49.1 (42.0-52.0) % MCV 86.9 (80.0-100.0) fL MCH 28.7 (25.0-34.0) pg MCHC 33.0 (32.0-36.0) g/dL RDW Std Deviation 45.8 (36.4-46.3) fL RDW Coeff of Zoltan 14.4 (11.5-14.5) % Plt Count 149 (130-400) K/uL MPV 10.6 (9.4-12.4) fL Immature Gran % (Auto) 0.6 % Neut % (Auto) 77.9 % Lymph % (Auto) 15.7 % [place] % (Auto) 4.6 % Eos % (Auto) 0.8 % Baso % (Auto) 0.4 % Neut # (Auto) 8.88 H (1.40-6.50) K/uL Lymph # (Auto) 1.79 (1.20-3.40) K/uL [place] # (Auto) 0.52 (0.11-0.59) K/uL Eos # (Auto) 0.09 (0.00-0.50) K/uL Baso # (Auto) 0.04 (0.00-0.20) K/uL Immature Gran # (Auto) 0.07 (0.01-0.20) K/uL PT 11.1 (9.0-12.0) Seconds INR 1.0 (0.9-1.1) VBG pH 7.33 L (7.36-7.41) VBG pCO2 45 (38-50) mmHg VBG pO2 70 mmHg VBG HCO3 24 mmol/L VBG O2 Saturation 91.9 % VBG Base Excess -2.4 mEq/L Sodium 137 (136-145) mmol/L Potassium TNP 3.9 Chloride 105 (98-107) mmol/L Carbon Dioxide 21 (21-32) mmol/L Anion Gap 11 (3-11) BUN 13 (6-23) mg/dl Creatinine 0.99 (0.6-1.4) mg/dl Est Cr Clr Drug Dosing 137.9 ml/min Est GFR ( Amer) 105.4 ml/min Est GFR (Non-Af Amer) 91.0 ml/min BUN/Creatinine Ratio 13.1 (10-20) Glucose 227 H (70-99(Fasting)) mg/dl Calcium 8.6 (8.6-10.3) mg/dl Phosphorus 3.8 (2.5-4.9) mg/dl Magnesium 1.7 (1.7-2.4) mg/dl Total Bilirubin 0.7 (0.2-1.0) mg/dl AST TNP 18 ALT 15 (7-52) U/L Alkaline Phosphatase 94 (34-104) U/L Troponin I High Sens 18.4 (0-20) pg/ml B-Natriuretic Peptide 695 H (0-100) pg/ml Total Protein 7.9 (6.0-8.3) gm/dl Albumin 3.9 (3.4-5.0) gm/dl Globulin 4.0 (2.5-4.0) gm/dl Albumin/Globulin Ratio 1.0 (0.9-2) Lipase 33 (11-82) U/L Procalcitonin < 0.02 (0-0.5) ng/ml Adenovirus (PCR) Not Detected (NotDetected) B. pertussis DNA (PCR) Not Detected (NotDetected) B.parapertussis DNA PCR Not Detected (NotDetected) C. pneumoniae DNA (PCR) Not Detected (NotDetected) Coronavirus OC43 (PCR) Not Detected (NotDetected) Coronavirus HKU1 (PCR) Not Detected (NotDetected) Coronavirus 229E (PCR) Not Detected (NotDetected) SARS-CoV-2 (PCR) Not Detected (NotDetected) Coronavirus NL63 (PCR) Not Detected (NotDetected) Human Metapneumovir PCR Not Detected (NotDetected) Influenza Type A (PCR) Not Detected (NotDetected) Influenza Type B (PCR) Not Detected (NotDetected) M. pneumoniae (PCR) Not Detected (NotDetected) Parainfluenza 1 (PCR) Not Detected (NotDetected) Parainfluenza 2 (PCR) Not Detected (NotDetected) Parainfluenza 3 (PCR) Not Detected (NotDetected) Parainfluenza 4 (PCR) Not Detected (NotDetected) RSV (PCR) Not Detected (NotDetected) Entero/Rhino (PCR) Not Detected (NotDetected) Administered Medications Discontinued Medications Albuterol (Albut/Ipratrop 3mg/0.5mg Neb 3 Ml Vial) 3 ml NEB NOW STA; Protocol Stop: 03/29/23 19:32 Last Admin: 03/29/23 19:56 Dose: 3 ml Documented By: NANCI Bumetanide 4 mg/ Syringe 16 mls @ 4 mls/min IV ONE ONE Stop: 03/29/23 21:34 Last Admin: 03/29/23 22:09 Dose: 4 mls/min Documented By: NANCI Methylprednisolone (Methylprednisolone 125 Mg/2 Ml Vial) 125 mg IV NOW STA Stop: 03/29/23 19:32 Last Admin: 03/29/23 19:41 Dose: 125 mg Documented By: NANCI Nitroglycerin (Nitroglycerin 2% Ointment 30gm Tube) 1 inch EXT NOW STA Stop: 03/29/23 19:29 Last Admin: 03/29/23 19:42 Dose: 1 inch Documented By: NANCI Imaging Data Radiologist's Impression: Chest X-Ray 03/29/23 19:04 SINGLE VIEW CHEST CLINICAL HISTORY: Atypical chest pain. FINDINGS: An AP, portable, upright chest radiograph is compared to study dated 10/22/2022 and correlated with chest CT dated 08/21/2022. A single-lead cardiac AICD is unchanged in position. The heart is enlarged. There is evidence of congestive failure. Bilateral airspace opacities likely represent pulmonary edema. There are layering pleural effusions with dependent consolidation. No pneumothorax is seen. The skeletal structures appear osteopenic. The bony thorax is grossly intact. IMPRESSION: 1. Cardiomegaly and the ICD without evidence of congestive failure. 2. Bilateral airspace opacities likely represent pulmonary edema. Correlate clinically for evidence of a superimposed pneumonia. Radiographic follow-up to resolution is recommended. 3. Small pleural effusions with dependent consolidation. ACT 112: Negative or not required by law. Electronically signed by: Abhilash Carpio M.D. 03/29/2023 7:41 PM Discharge Plan Visit Data Chief Complaint: Respiratory Distress Stated Complaint: SOB, CHF ON CPAP ED Provider: Marv Cintron Discharge Problem: Acute respiratory failure, COPD (chronic obstructive pulmonary disease), Combined systolic and diastolic heart failure, Hypertensive emergency Forms Stand Alone Forms: [employer] Prescriptions Prescriptions: No Action insulin glargine [Lantus Solostar U-100 Insulin] 100 unit/mL (3 mL) insulin pen 20 unit subcut HS 30 Days Qty: 18 2RF Rx Instructions: Inject 20 Units under the skin every night at bedtime. Hold for blood sugar less than 200. albuterol sulfate 90 mcg/actuation HFA aerosol inhaler 1 inh inhalation QID Qty: 8.5 2RF (DME) pen needle, diabetic [Comfort EZ Pen [place]] 31 gauge x 5/16" needle See Rx Instructions .Route Qty: 100 3RF Rx Instructions: use when administering insuling daily Entresto 97-103 mg tablet 1 tab PO BID Qty: 60 5RF metoprolol succinate 100 mg tablet extended release 24 hr 100 mg PO BID Qty: 60 5RF isosorbide mononitrate 30 mg tablet extended release 24 hr 60 mg PO DAILY budesonide 0.25 mg/2 mL suspension for nebulization 0.25 mg inhalation DAILY PRN (Reason: Shortness Of Breath) budesonide-formoterol [Symbicort] 160-4.5 mcg/actuation HFA aerosol inhaler 2 inh inhalation BID Qty: 3 3RF Rx Instructions: 2 puffs twice per day. Rinse mouth after each use torsemide 20 mg tablet 100 mg .ROUTE BID Rx Instructions: 100 mg twice a day; Take 4 tablets in the morning and take 4 in the afternoon (DME) OneTouch Verio test strips Strip See Rx Instructions miscellaneous .MEDSUPPLY Qty: 100 5RF Rx Instructions: check 3x a day Trulicity 4.5 mg/0.5 mL pen injector 4.5 mg SUBCUT Q7D Qty: 2 5RF Rx Instructions: wed (DME) FreeStyle Karla 2 [place] Misc See Rx Instructions .Route Qty: 1 0RF Rx Instructions: for use with Karla 2 sensor (DME) FreeStyle Karla 2 Sensor Kit See Rx Instructions .Route Qty: 2 11RF Rx Instructions: change sensor every 14 days (DME) lancets [ReferBright Delica Plus Lancet] 30 gauge mis See Rx Instructions .ROUTE .MEDSUPPLY Qty: 100 5RF Rx Instructions: use new lancet 3x a day (DME) blood-glucose meter [ReferBright Verio Flex meter] Mis See Rx Instructions .ROUTE .MEDSUPPLY Qty: 1 0RF Rx Instructions: As directed nystatin 100,000 unit/gram powder 1 applic topical BID Qty: 60 0RF nitroglycerin [Nitrostat] 0.4 mg tablet, sublingual 0.4 mg sublingual UD PRN (Reason: Chest Pain) aspirin [Neisha Low Dose Aspirin] 81 mg tablet,delayed release (DR/EC) 81 mg PO QAM spironolactone [Aldactone] 25 mg tablet 25 mg PO TID Rx Instructions: Take 2 tablets in the morning and 1 tablet in the afternoon albuterol sulfate 2.5 mg /3 mL (0.083 %) solution for nebulization 2.5 mg inhalation Q6H Rx Instructions: Use every 6 hours as needed with nebulizer Referrals Referrals: PCP,NO [Physician] - Discharge Problem: Acute respiratory failure Qualifiers: Respiratory failure complication: unspecified whether with hypoxia or hypercapnia Qualified Code(s): J96.00 - Acute respiratory failure, unspecified whether with hypoxia or hypercapnia COPD (chronic obstructive pulmonary disease) Qualifiers: COPD type: unspecified COPD Qualified Code(s): J44.9 - Chronic obstructive pulmonary disease, unspecified Combined systolic and diastolic heart failure Qualifiers: Heart failure chronicity: acute on chronic Qualified Code(s): I50.43 - Acute on chronic combined systolic (congestive) and diastolic (congestive) heart failure
[2023-03-29] MEDS: methylPREDNISolone 125 MG/2 ML VIAL IV STA (19:41)
[2023-03-29] MEDS: NITROGLYCERIN 2% OINTMENT 30GM TUBE EXT STA (19:42)
--- NOTE | 2023-03-29 19:43 | XRay Report ---
SINGLE VIEW CHEST CLINICAL HISTORY: Atypical chest pain. FINDINGS: An AP, portable, upright chest radiograph is compared to study dated 10/22/2022 and correlat ed with chest CT dated 08/21/2022. A single-lead cardiac AICD is unchanged in position. The heart is e nlarged. There is evidence of congestive failure. Bilateral airspace opacities likely represent pulmo nary edema. There are layering pleural effusions with dependent consolidation. No pneumothorax is see n. The skeletal structures appear osteopenic. The bony thorax is grossly intact. IMPRESSION: 1. Cardiomegaly and the ICD without evidence of congestive failure. 2. Bilateral airspace opacities likely represent pulmonary edema. Correlate clinically for evidence o f a superimposed pneumonia. Radiographic follow-up to resolution is recommended. 3. Small pleural effusions with dependent consolidation. ACT 112: Negative or not required by law. Electronically signed by: Abhilash Carpio M.D. 03/29/2023 7:41 PM
[2023-03-29 19:52] LABS: Base Excess VBG -2.4 mEq/L; HCO3 VBG 24 mmol/L; Oxygen Saturation VBG 91.9 %; PCO2 VBG 45 mmHg (38-50); PO2 VBG 70 mmHg; pH VBG 7.33 (7.36-7.41)
[2023-03-29] MEDS: ALBUT/IPRATROP 3MG/0.5MG NEB 3 ML VIAL NEB STA (19:56)
[2023-03-29 20:00] LABS: Alanine Aminotransferase 15 U/L (7-52); Albumin Level 3.9 gm/dl (3.4-5.0); Alkaline Phosphatase 94 U/L (34-104); Anion Gap 11 (3-11); BUN Creatinine Ratio 13.1 (10-20); Bilirubin,Total 0.7 mg/dl (0.2-1.0); Blood Urea Nitrogen 13 mg/dl (6-23); Calcium 8.6 mg/dl (8.6-10.3); Carbon Dioxide 21 mmol/L (21-32); Chloride 105 mmol/L (98-107); Creatinine Clr Calc Pharmacy 137.9 ml/min; Est GFR (African American) 105.4 ml/min; Glucose 227 mg/dl (70-99(Fasting)); Lipase 33 U/L (11-82); Magnesium 1.7 mg/dl (1.7-2.4); Phosphorus 3.8 mg/dl (2.5-4.9); Sodium 137 mmol/L (136-145); Total Protein 7.9 gm/dl (6.0-8.3); Troponin I High Sensitivity 18.4 pg/ml (0-20)
[2023-03-29 20:03] LABS: Basophils # (auto) 0.04 K/uL (0.00-0.20); Basophils % (auto) 0.4 %; Eosinophils # (auto) 0.09 K/uL (0.00-0.50); Eosinophils % (auto) 0.8 %; Hematocrit (blood only) 49.1 % (42.0-52.0); Hemoglobin 16.2 g/dl (14.0-18.0); Immature Granulocytes # (auto) 0.07 K/uL (0.01-0.20); Immature Granulocytes % (auto) 0.6 %; Lymphocytes # (auto) 1.79 K/uL (1.20-3.40); Lymphocytes % (auto) 15.7 %; Mean Corpuscular Hemoglobin 28.7 pg (25.0-34.0); Mean Corpuscular Volume 86.9 fL (80.0-100.0); Mean Platelet Volume 10.6 fL (9.4-12.4); Monocytes # (auto) 0.52 K/uL (0.11-0.59); Monocytes % (auto) 4.6 %; Neutrophils # (auto) 8.88 K/uL (1.40-6.50); Neutrophils % (auto) 77.9 %; Platelet Count 149 K/uL (130-400); RDW Coefficient of Variation 14.4 % (11.5-14.5); RDW Standard Deviation 45.8 fL (36.4-46.3); Red Blood Count 5.65 M/uL (4.70-6.10); White Blood Count 11.39 K/ul (4.8-10.8)
[2023-03-29 20:09] LABS: Prothrombin Time 11.1 Seconds (9.0-12.0)
[2023-03-29 21:40] LABS: Potassium 3.9 mmol/L (3.5-5.1)
[2023-03-29] MEDS: BUMETANIDE 4 MG in SYRINGE 0 ML IV ONE (22:09)
--- NOTE | 2023-03-29 22:19 | History & Physical Report ---
Date of Service March 29, 2023 Assessment & Plan (1) Respiratory failure: Plan: 47yo male with history of NICM, decreased EF, COPD and MARIELENA presenting with acute hypoxic respiratory failure requiring rescue BIPAP in the ER. Patient reports sudden onset of symptoms this AM at 0800. Feels better after Bumex and BiPAP in the ER. Ddx to include CHF exacerbation, less likely COPD or PNA -Admit to PCU -Continue BiPAP, wean as tolerated -Supplemental O2 - patient is on 5L continuous -Bumex 2mg IV BID -Monitor UOP, daily weights and chemistry BID -DuoNebs q4 hours scheduled -Albuterol q 2hr PRN -If no improvement would CT chest (2) Combined systolic and diastolic heart failure: Plan: Likely cause for patient's acute hypoxic respiratory failure. His weight is up appx 8kg -Bumex 2mg IV BID -Montior I/Os, daily weights -Monitor renal function and electrolytes closely -Continue Spironolactone -Continue Entresto -Continue Metoprolol -Continue Isosorbide moninitrate (3) COPD (chronic obstructive pulmonary disease): Plan: Patient given Solumedrol in the ER. No wheezing on exam. -Continue Symbicort -DuoNeb q 4 hours -Albuterol q2hr PRN -Continue Budesonide (4) Obstructive sleep apnea: Plan: Chronic -Continue home CPAP 12cm H20 (5) Hypertension: Plan: Blood pressure elevated -Continue home medications, Metoprolol, Entresto, Isosorbide, Spironolactone. -Monitor (6) Diabetes mellitus type II, uncontrolled: Plan: Poorly controlled. Last [id number]=54.9 on 09/08/22 -Lantus 10u BID -ISS -Goal blood sugar 110 - 140 -Check a1c History of Present Illness Chief Complaint: shortness of breath Primary Care Provider: Gosia Becker MD Alok Huff is a 47yo male with history of HFrEF due to NICM, EF of 15-20%, DM, COPD presenting with shortness of breath. Patient has been in his usual state of health until waking this AM around 0800. He felt acutely short of breath - was unable to move or ambulate due to shortness of breath. He turned up his oxygen with improvement briefly. His symptoms progressed throughout the day which prompted him to come to the ER. He has some left sided chest discomfort as well as some back pain and neck pain. He has been feeling hot today but no fever or chills. He denies abdominal pain, nausea, vomiting, diarrhea or constipation. No URI symptoms. He has some worsening edema. Patient's Lasix dose was increased appx 3.5 months ago. He reports he has been taking his medications as prescribed and does not miss any doses. Weight last recorded at 150kg on 03/26/23 now 158.8kg In the ER patient tachycardic, tachypneic and hypoxic on arrival. He was placed on BiPAP with improvement. ER Course: Methylprednisolone 125mg Nitro paste ALbuterol 3mL Bumex 4mg IV Allergies Allergy/AdvReac Type Severity Reaction Status Date / Time ceftriaxone Allergy Severe SHORTNESS Verified 03/26/23 13:55 OF BREATH lidocaine Allergy Severe SHORTNESS Verified 03/26/23 13:55 OF BREATH, diaphoretic, hives procaine Allergy Severe SHORTNESS Verified 03/26/23 13:55 OF BREATH, diaphoretic, hives amoxicillin Allergy Intermediate HIVES/FACIAL Verified 03/26/23 13:55 SWELLING clavulanic acid Allergy Intermediate HIVES/FACIAL Verified 03/26/23 13:55 SWELLING lisinopril Allergy Intermediate HIVES Verified 03/26/23 13:55 shellfish derived Allergy Unknown Verified 03/26/23 13:55 acetaminophen AdvReac Mild NAUSEA Verified 03/26/23 13:55 albuterol AdvReac Mild proair Verified 03/26/23 13:55 "trouble taking breaths" Fish Containing Products AdvReac Unknown Unknown Verified 03/26/23 13:55 Home Medications Medication Instructions Recorded Confirmed Type nitroglycerin 0.4 mg sublingual 0.4 mg sublingual UD PRN Chest Pain 04/24/19 02/16/23 History tablet (Nitrostat) albuterol sulfate 90 mcg/actuation 1 inh inhalation QID #8.5 grams 12/09/20 02/16/23 Rx aerosol inhaler metoprolol succinate 100 mg 100 mg PO BID #60 tabs 02/21/21 02/16/23 Rx tablet,extended release 24 hr sacubitril 97 mg-valsartan 103 mg 1 tab PO BID #60 tabs 02/21/21 02/16/23 Rx tablet (Entresto) aspirin 81 mg tablet,delayed 81 mg PO QAM 06/16/21 03/26/23 History release (Neisha Low Dose Aspirin) albuterol sulfate 2.5 mg/3 mL 2.5 mg inhalation Q6H 12/02/21 02/16/23 History (0.083 %) solution for nebulization budesonide 0.25 mg/2 mL suspension 0.25 mg inhalation DAILY PRN 09/15/22 02/16/23 History for nebulization Shortness Of Breath isosorbide mononitrate 30 mg 60 mg PO DAILY 09/15/22 02/16/23 History tablet,extended release 24 hr spironolactone 25 mg tablet 25 mg PO TID 09/15/22 02/16/23 History (Aldactone) blood-glucose meter (Year Upuch #1 ea 10/12/22 02/16/23 Rx Verio Flex Meter) lancets 30 gauge (NextanceTouch Delica #100 ea 10/12/22 02/16/23 Rx Plus Lancet) torsemide 20 mg tablet 100 mg .Route BID 10/12/22 02/16/23 History Symbicort 160 mcg-4.5 2 inh inhalation BID #3 Inhalers 11/14/22 02/16/23 Rx mcg/actuation HFA aerosol inhaler (budesonide-formoterol) blood sugar diagnostic (NextanceTouch #100 ea 01/17/23 02/16/23 Rx Verio test strips) dulaglutide 4.5 mg/0.5 mL 4.5 mg (0.5 mL) subcut Q7D #2 mL 01/17/23 02/16/23 Rx subcutaneous pen injector (Trulicity) Lantus Solostar U-100 Insulin 100 20 unit (0.2 mL) subcut HS 30 days 01/18/23 02/16/23 Rx unit/mL (3 mL) subcutaneous pen #18 mL (insulin glargine) flash glucose scanning reader #1 ea 02/09/23 02/16/23 Rx (FreeStyle Karla 2 [employer]) flash glucose sensor (FreeStyle #2 ea 02/09/23 02/16/23 Rx Karla 2 Sensor kit) pen needle, diabetic 31 gauge x #100 ea 02/16/23 02/16/23 Rx 5/16" (Comfort EZ Pen [place]) nystatin 100,000 unit/gram topical 1 applic topical BID #60 grams 03/26/23 03/26/23 Rx powder Past Med/Surg History Medical History Acute and chronic respiratory failure Pulmonary edema Elevated troponin Acute exacerbation of CHF (congestive heart failure) Abscess of multiple sites Small bowel obstruction Hx of local infection of skin and subcutaneous tissue Housing instability, currently housed, at risk for homelessness Bacteremia Urinary bladder incontinence Obstructive sleep apnea Chronic respiratory failure Hearing loss of 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 Underwent procedure without any complications monitored over night and discharged home. Dilatation of thoracic aorta Iliac aneurysm Vitamin D insufficiency Previously deficient, taking Vit D supplementation Umbilical hernia Lung nodule Fatty liver Surgical History History of carpal tunnel surgery S/P tonsillectomy History of cholecystectomy Family History Father , age 57 of an [place]. Heart disease Myocardial infarction Mother , age 67 of a ruptured neck vessel Sudden Other Depression Lung disease No pertinent family history Denies family history of Ovarian cancer Prostate cancer Breast cancer Colorectal cancer Social History Smoking Status: Former smoker Tobacco Type: Cigarettes Age Started Using Tobacco: 14; Age Quit Using Tobacco: 18; Cigarettes Per Day: 40; Second Hand Exposure: No; Do You Dip or Chew Tobacco: No; Hx Alcohol Use: No Hx Substance Use: No Preferred Language: [place] Communication Ability: Effective Visual Impairment: No Limitations Hearing Ability: Normal Financial Management Consultant Required: No Beliefs That Will Affect Care: None marital status: Current Living Situation: Spouse Current Living Situation Comment: Lives at home with and stepdaughter current occupational status: unemployed How many Children do You have: 0 Other Information That Helps Us Care for You: No Feels Safe at Home: Yes Safety Concerns: Feels Safe At This Time Childhood Exposure to Second-Hand Smoke: Yes Dental Care, Regularly: Yes Physical Activity Frequency: Does not Exercise Assistive Devices: Cane, Scooter/Electric Scooter and Walker Review of Systems Review of Systems: All systems reviewed & are unremarkable except as noted in HPI & below Physical Exam Physical Exam: General: patient resting comfortably, NAD, non-toxic in appearance, AA&O x 4, BiPAP in place, speaking in short sentences Skin: warm, dry, intact, no rashes or lesions HEENT: NC/AT, PERRL, EOMI, anicteric sclera, conjunctiva without injection, external ear normal to inspection and nontender, nares patent, moist mucus membranes, dentition intact, no oropharyngeal lesions, neck supple, trachea midline, no LAD, no thyromegaly, no JVD Heart: +S1/S2, regular, tachycardic, no m/r/g Lungs: equal air entry bilaterally, +crackles in bilateral bases, no rhonchi/wheezes Abd: +BS, soft, NT/ND, no masses/organomegaly/ascites Ext: warm, 2+ pulses in UE/LE bilaterally, no clubbing/cyanosis, 2+ pitting edema of bilateral LE Neuro: nonfocal, patient AA&O x 4, speech intact, no facial droop, moving all extremities on command with equal strength 5/5 Results & Data Results & Data Vital Signs (Past 12 Hours) Vital Signs Pulse Pulse Resp BP Pulse Ox O2 Del Method FiO2 03/29/23 21:30 107 H 19 148/111 H 95 03/29/23 20:30 105 H 20 157/115 H 94 03/29/23 20:09 114 H 24 95 BiPAP 45 03/29/23 20:06 118 H 95 BiPAP 03/29/23 20:01 120 H 25 H 182/117 H 95 03/29/23 20:00 120 H 27 H 94 03/29/23 19:32 129 H 28 H 95 03/29/23 19:30 132 H 30 H 186/124 H 95 03/29/23 19:26 122 H 29 H 97 03/29/23 19:06 130 H 30 H 191/140 H 96 03/29/23 19:06 128 H 03/29/23 19:06 127 H 30 H 180/129 H 94 BiPAP Laboratory Results Laboratory Results WBC 11.39 K/ul (4.8-10.8) H 03/29/23 19:12 RBC 5.65 M/uL (4.70-6.10) 03/29/23 19:12 Hgb 16.2 g/dl (14.0-18.0) 03/29/23 19:12 Hct 49.1 % (42.0-52.0) 03/29/23 19:12 MCV 86.9 fL (80.0-100.0) 03/29/23 19:12 MCH 28.7 pg (25.0-34.0) 03/29/23 19: MCHC 33.0 g/dL (32.0-36.0) 03/29/23 19:12 RDW Std Deviation 45.8 fL (36.4-46.3) 03/29/23 19: RDW Coeff of Zoltan 14.4 % (11.5-14.5) 03/29/23: Plt Count 149 K/uL (130-400) 03/29/23 19:12 MPV 10.6 fL (9.4-12.4) 03/29/23 19:12 Immature Gran % (Auto) 0.6 % 03/29/23 19:12 Neut % (Auto) 77.9 % 03/29/23 19:12 Lymph % (Auto) 15.7 % 03/29/23 19:12 Ceiba % (Auto) 4.6 % 03/29/23 19:12 Eos % (Auto) 0.8 % 03/29/23 19:12 Baso % (Auto) 0.4 % 03/29/23: Neut # (Auto) 8.88 K/uL (1.40-6.50) H 03/29/23 19:12 Lymph # (Auto) 1.79 K/uL (1.20-3.40) 03/29/23 19:12 Ceiba # (Auto) 0.52 K/uL (0.11-0.59) 03/29/23 19: Eos # (Auto) 0.09 K/uL (0.00-0.50) 03/29/23 19: Baso # (Auto) 0.04 K/uL (0.00-0.20) 03/29/23 19:12 Immature Gran # (Auto) 0.07 K/uL (0.01-0.20) 03/29/23 19: PT 11.1 Seconds (9.0-12.0) 03/29/23 19:12 INR 1.0 (0.9-1.1) 03/29/23 19:12 VBG pH 7.33 (7.36-7.41) L 03/29/23 19:12 VBG pCO2 45 mmHg (38-50) 03/29/23 19:12 VBG pO2 70 mmHg 03/29/23 19:12 VBG HCO3 24 mmol/L 03/29/23 19:12 VBG O2 Saturation 91.9 % 03/29/23 19:12 VBG Base Excess -2.4 mEq/L 03/29/23 19:12 Sodium 137 mmol/L (136-145) 03/29/23 19:12 Potassium 3.9 mmol/L (3.5-5.1) 03/29/23 20:54 Chloride 105 mmol/L (98-107) 03/29/23 19:12 Carbon Dioxide 21 mmol/L (21-32) 03/29/23 19:12 Anion Gap 11 (3-11) 03/29/23 19:12 BUN 13 mg/dl (6-23) 03/29/23 19:12 Creatinine 0.99 mg/dl (0.6-1.4) 03/29/23 19:12 Est Cr Clr Drug Dosing 137.9 ml/min 03/29/23 19:12 Est GFR ( Amer) 105.4 ml/min 03/29/23 19:12 Est GFR (Non-Af Amer) 91.0 ml/min 03/29/23 19:12 BUN/Creatinine Ratio 13.1 (10-20) 03/29/23 19:12 Glucose 227 mg/dl (70-99(Fasting)) H 03/29/23 19:12 POC Glucose 196 mg/dl (70-99) H 03/30/23 00:57 Calcium 8.6 mg/dl (8.6-10.3) 03/29/23 19:12 Phosphorus 3.8 mg/dl (2.5-4.9) 03/29/23 19:12 Magnesium 1.7 mg/dl (1.7-2.4) 03/29/23 19:12 Total Bilirubin 0.7 mg/dl (0.2-1.0) 03/29/23 19:12 AST 18 U/L (13-39) 03/29/23 20:54 ALT 15 U/L (7-52) 03/29/23 19:12 Alkaline Phosphatase 94 U/L (34-104) 03/29/23 19:12 Troponin I High Sens 18.4 pg/ml (0-20) 03/29/23 19:12 B-Natriuretic Peptide 695 pg/ml (0-100) H 03/29/23 19:12 Total Protein 7.9 gm/dl (6.0-8.3) 03/29/23 19:12 Albumin 3.9 gm/dl (3.4-5.0) 03/29/23 19:12 Globulin 4.0 gm/dl (2.5-4.0) 03/29/23 19:12 Albumin/Globulin Ratio 1.0 (0.9-2) 03/29/23 19:12 Lipase 33 U/L (11-82) 03/29/23 19:12 Procalcitonin < 0.02 ng/ml (0-0.5) 03/29/23 20:54 Adenovirus (PCR) Not Detected (NotDetected) 03/29/23 Unknown B. pertussis DNA (PCR) Not Detected (NotDetected) 03/29/23 Unknown B.parapertussis DNA PCR Not Detected (NotDetected) 03/29/23 Unknown C. pneumoniae DNA (PCR) Not Detected (NotDetected) 03/29/23 Unknown Coronavirus OC43 (PCR) Not Detected (NotDetected) 03/29/23 Unknown Coronavirus HKU1 (PCR) Not Detected (NotDetected) 03/29/23 Unknown Coronavirus 229E (PCR) Not Detected (NotDetected) 03/29/23 Unknown SARS-CoV-2 (PCR) Not Detected (NotDetected) 03/29/23 Unknown Coronavirus NL63 (PCR) Not Detected (NotDetected) 03/29/23 Unknown Human Metapneumovir PCR Not Detected (NotDetected) 03/29/23 Unknown Influenza Type A (PCR) Not Detected (NotDetected) 03/29/23 Unknown Influenza Type B (PCR) Not Detected (NotDetected) 03/29/23 Unknown M. pneumoniae (PCR) Not Detected (NotDetected) 03/29/23 Unknown Parainfluenza 1 (PCR) Not Detected (NotDetected) 03/29/23 Unknown Parainfluenza 2 (PCR) Not Detected (NotDetected) 03/29/23 Unknown Parainfluenza 3 (PCR) Not Detected (NotDetected) 03/29/23 Unknown Parainfluenza 4 (PCR) Not Detected (NotDetected) 03/29/23 Unknown RSV (PCR) Not Detected (NotDetected) 03/29/23 Unknown Entero/Rhino (PCR) Not Detected (NotDetected) 03/29/23 Unknown Impressions Chest X-Ray 03/29/23 19:04 SINGLE VIEW CHEST CLINICAL HISTORY: Atypical chest pain. FINDINGS: An AP, portable, upright chest radiograph is compared to study dated 10/22/2022 and correlated with chest CT dated 08/21/2022. A single-lead cardiac AICD is unchanged in position. The heart is enlarged. There is evidence of congestive failure. Bilateral airspace opacities likely represent pulmonary edema. There are layering pleural effusions with dependent consolidation. No pneumothorax is seen. The skeletal structures appear osteopenic. The bony thorax is grossly intact. IMPRESSION: 1. Cardiomegaly and the ICD without evidence of congestive failure. 2. Bilateral airspace opacities likely represent pulmonary edema. Correlate clinically for evidence of a superimposed pneumonia. Radiographic follow-up to resolution is recommended. 3. Small pleural effusions with dependent consolidation. ACT 112: Negative or not required by law. Electronically signed by: Abhilash Carpio M.D. 03/29/2023 7:41 PM ECG Additional Comments: EKG with ST at 122bpm, PVCs, Left axis deviation, no acute ischemic changes PG Care Time/CCT Total # of Minutes Spent Total Time Spent with Patient: Total time spent is greater than 50% in coordination of care (as documented) at patient's floor/unit and/or counseling patient: Coding Level of Care Code 33802 INT INP/OBS CARE 3/75MIN Diagnoses Respiratory failure J96.90 Combined systolic and diastolic heart failure I50.43 Heart failure chronicity: acute on chronic Chronic obstructive pulmonary disease, unspecified COPD type J44.9 COPD type: unspecified COPD Obstructive sleep apnea G47.33 Hypertension I10 Hypertension type: unspecified Uncontrolled type 2 diabetes mellitus with hyperglycemia E11.65 Glycemic state: with hyperglycemia (2) Combined systolic and diastolic heart failure Heart failure chronicity: acute on chronic Qualified Code(s): I50.43 - Acute on chronic combined systolic (congestive) and diastolic (congestive) heart failure (3) COPD (chronic obstructive pulmonary disease) COPD type: unspecified COPD Qualified Code(s): J44.9 - Chronic obstructive pulmonary disease, unspecified (5) Hypertension Hypertension type: unspecified Qualified Code(s): I10 - Essential (primary) hypertension (6) Diabetes mellitus type II, uncontrolled Glycemic state: with hyperglycemia Qualified Code(s): E11.65 - Type 2 diabetes mellitus with hyperglycemia
[2023-03-29 22:28] LABS: Adenovirus PCR Not Detected (NotDetected); Bordetella parapertussis PCR Not Detected (NotDetected); Bordetella pertussis PCR Not Detected (NotDetected); Chlamydia pneumoniae PCR Not Detected (NotDetected); Coronavirus 229E PCR Not Detected (NotDetected); Coronavirus CoV-2 (COVID19)PCR Not Detected (NotDetected); Coronavirus HKU1 PCR Not Detected (NotDetected); Coronavirus NL63 PCR Not Detected (NotDetected); Coronavirus OC43PCR Not Detected (NotDetected); Human Metapneumovirus PCR Not Detected (NotDetected); Influenza A PCR Not Detected (NotDetected); Influenza B PCR Not Detected (NotDetected); Mycoplasma pneumoniae PCR Not Detected (NotDetected); Parainfluenza Virus 1 PCR Not Detected (NotDetected); Parainfluenza Virus 2 PCR Not Detected (NotDetected); Parainfluenza Virus 3 PCR Not Detected (NotDetected); Parainfluenza Virus 4 PCR Not Detected (NotDetected); Respiratory Syncytial VirusPCR Not Detected (NotDetected); Rhinovirus/Enterovirus PCR Not Detected (NotDetected)
[2023-03-30] MEDS ORDERED: ALBUTEROL 0.5% NEB SOLN 2.5 MG/0.5 ML VIAL NEB PRN (00:53)
[2023-03-30] MEDS: ONDANSETRON INJ 2 MG/ML 2 ML VIAL IV PRN (01:27)
[2023-03-30] MEDS: ALBUT/IPRATROP 3MG/0.5MG NEB 3 ML VIAL NEB SCH (01:31)
[2023-03-30] MEDS ORDERED: BUDESONIDE 0.25 MG/2 ML VIAL (PULMICORT) INH PRN (03:05)
[2023-03-30] MEDS ORDERED: GLUCOSE 10 TAB/TUBE PO PRN (03:07)
[2023-03-30] MEDS ORDERED: GLUCOSE 40% GEL 15 GM TUBE PO PRN (03:07)
[2023-03-30] MEDS ORDERED: DEXTROSE 50% 50 ML SYRINGE IV PRN (03:07)
[2023-03-30] MEDS ORDERED: GLUCAGON FOR INJ 1 MG VIAL SQ PRN (03:07)
[2023-03-30] MEDS ORDERED: CARBOHYDRATES FOR HYPOGLYCEMIA PO PRN (03:07)
[2023-03-30 06:39] LABS: Hematocrit (blood only) 44.3 % (42.0-52.0); Hemoglobin 14.7 g/dl (14.0-18.0); Mean Corpuscular Hemoglobin 28.9 pg (25.0-34.0); Mean Corpuscular Hgb Conc 33.2 g/dL (32.0-36.0); Mean Platelet Volume 10.4 fL (9.4-12.4); Platelet Count 141 K/uL (130-400); RDW Coefficient of Variation 14.1 % (11.5-14.5); RDW Standard Deviation 45.1 fL (36.4-46.3); Red Blood Count 5.09 M/uL (4.70-6.10); White Blood Count 9.32 K/ul (4.8-10.8)
[2023-03-30 07:14] LABS: BUN Creatinine Ratio 16.3 (10-20); Calcium 8.3 mg/dl (8.6-10.3); Creatinine Clr Calc Pharmacy 159.2 ml/min; Est GFR (African American) 120.5 ml/min; Potassium 4.1 mmol/L (3.5-5.1)
--- NOTE | 2023-03-30 07:49 | Hospitalist Progress Note ---
Date of Service March 30, 2023 Assessment & Plan (1) Respiratory failure: Plan: 47yo male with history of Non ischemic cardiomyopathy( HFrEF), COPD and MARIELENA presenting with acute hypoxic respiratory failure requiring rescue BIPAP/iv bumex in the ER. Patient reports sudden onset of symptoms this AM at 0800. -Bumex 2mg IV BID, continue diuresis -DuoNebs q4 hours scheduled -Albuterol q 2hr PRN due to abrupt nature of onset, CTA was performed and negative for pe (2) Combined systolic and diastolic heart failure: Plan: weight is up appx 8kg -Bumex 2mg IV BID -[facility] -Continue Spironolactone -Continue Entresto -Continue Metoprolol -Continue Isosorbide moninitrate (3) COPD (chronic obstructive pulmonary disease): Plan: Patient given Solumedrol in the ER. No wheezing on exam. no further steroids -Continue Symbicort -DuoNeb q 4 hours -Albuterol q2hr PRN -Continue Budesonide (4) Obstructive sleep apnea: Plan: Chronic -Continue home CPAP 12cm H20 (5) Hypertension: Plan: Blood pressure elevated -Continue home medications, Metoprolol, Entresto, Isosorbide, Spironolactone. -Monitor (6) Diabetes mellitus type II, uncontrolled: Plan: Poorly controlled. Last [id number] on 09/08/22 -Lantus 10u BID -ISS -Goal blood sugar 110 - 140 -Check a1c Admission and Anticipated Discharge Date Admission Date: March 29, 2023 Subjective objectively seems like exacerbation of HF, pt then gives history of pleuritic CP and peripheral paresthesias, did have CTA and no PE seen, does not have any neurologic deficits at this time Physical Exam Physical Exam: pt is in no distress, he is sitting up no real distress, has some rales and basilar decreased breath sounds Results & Data Results & Data Vital Signs (Past 12 Hours) Vital Signs Temp Pulse Pulse Resp BP BP Pulse Ox 03/30/23 07:34 97.5 F L 75 20 143/83 H 96 03/30/23 07:09 99 H 24 99 03/30/23 07:09 99 H 24 100 03/30/23 03:29 99 H 23 96 03/30/23 03:29 99 H 23 94 03/30/23 03:23 97.7 F 99 H 18 158/101 H 94 03/30/23 01:10 104 H 03/30/23 01:00 03/30/23 00:53 97.5 F L 109 H 20 172/103 H 97 03/30/23 00:11 128 H 31 H 96 03/29/23 23:08 106 H 03/29/23 23:00 118 H 22 97 03/29/23 22:30 105 H 23 152/102 H 95 03/29/23 22:10 118 H 24 95 03/29/23 22:01 108 H 23 169/124 H 96 03/29/23 22:00 101 H 21 95 03/29/23 21:30 107 H 19 148/111 H 95 03/29/23 20:30 105 H 20 157/115 H 94 03/29/23 20:09 114 H 24 95 03/29/23 20:06 118 H 95 03/29/23 20:01 120 H 25 H 182/117 H 95 03/29/23 20:00 120 H 27 H 94 O2 Del Method O2 Flow Rate FiO2 03/30/23 07:34 BiPAP 03/30/23 07:09 BiPAP 45 03/30/23 07:09 45 03/30/23 03:29 45 03/30/23 03:29 BiPAP 45 03/30/23 03:23 Oxymask 10 03/30/23 01:10 03/30/23 01:00 Nasal Cannula, CPAP 03/30/23 00:53 CPAP 03/30/23 00:11 45 03/29/23 23:08 03/29/23 23:00 03/29/23 22:30 03/29/23 22:10 45 03/29/23 22:01 03/29/23 22:00 03/29/23 21:30 03/29/23 20:30 03/29/23 20:09 BiPAP 45 03/29/23 20:06 BiPAP 03/29/23 20:01 03/29/23 20:00 Laboratory Results reviewed cbc reviewed chemistry PG Care Time/CCT Total # of Minutes Spent Total Time Spent with Patient: Total time spent is greater than 50% in coordination of care (as documented) at patient's floor/unit and/or counseling patient: Coding Level of Care Code 66443 SUB INP/OBS CARE MIN Diagnoses Respiratory failure J96.90 Combined systolic and diastolic heart failure I50.43 Heart failure chronicity: acute on chronic Chronic obstructive pulmonary disease, unspecified COPD type J44.9 COPD type: unspecified COPD Obstructive sleep apnea G47.33 Hypertension I10 Hypertension type: unspecified Uncontrolled type 2 diabetes mellitus with hyperglycemia E11.65 Glycemic state: with hyperglycemia (2) Combined systolic and diastolic heart failure Heart failure chronicity: acute on chronic Qualified Code(s): I50.43 - Acute on chronic combined systolic (congestive) and diastolic (congestive) heart failure (3) COPD (chronic obstructive pulmonary disease) COPD type: unspecified COPD Qualified Code(s): J44.9 - Chronic obstructive pulmonary disease, unspecified (5) Hypertension Hypertension type: unspecified Qualified Code(s): I10 - Essential (primary) hypertension (6) Diabetes mellitus type II, uncontrolled Glycemic state: with hyperglycemia Qualified Code(s): E11.65 - Type 2 diabetes mellitus with hyperglycemia
[2023-03-30 08:19] LABS: Estimated Average Glucose 235 mg/dl; Hemoglobin A1C 9.8 % (4.5-5.6)
[2023-03-30] MEDS: INSULIN ASPART PER UNIT CHARGE SC SCH (08:43)
[2023-03-30] MEDS: LANTUS PER UNIT CHARGE SQ SCH (08:43)
[2023-03-30] MEDS: ASPIRIN 81 MG ECTAB PO SCH (08:45)
[2023-03-30] MEDS: SPIRONOLACTONE 25 MG TAB PO SCH (08:46)
[2023-03-30] MEDS: METOPROLOL SUCC 50MG EXT REL TAB PO SCH (08:46)
[2023-03-30] MEDS: VALSARTAN/SACUBITRIL 103/97MG TAB PO SCH (08:46)
[2023-03-30] MEDS: ISOSORBIDE MONO EXTENDED REL 60 MG TABCR PO SCH (08:47)
[2023-03-30] MEDS: FLUTICASONE/VILANTEROL 200/25MCG 14 PUFFS/INHALER INH SCH (08:51)
[2023-03-30] MEDS: BUMETANIDE 2 MG in SYRINGE 0 ML IV SCH (08:51)
--- NOTE | 2023-03-30 11:42 | Electrocardiogram Report ---
Test Reason : Blood Pressure : / mmHG Vent. Rate : 122 BPM Atrial Rate : 122 BPM P-R Int : 158 ms QRS Dur : 114 ms QT Int : 332 ms P-R-T Axes : -10 -48 088 degrees QTc Int : 473 ms Sinus tachycardia with occasional Premature ventricular complexes Left axis deviation Minimal voltage criteria for LVH, may be normal variant Septal infarct , age undetermined T wave abnormality, consider lateral ischemia Abnormal ECG When compared with ECG of 22-OCT-2022 13:22, Premature ventricular complexes are now Present Septal infarct is now Present Confirmed by Rodney Cary ([id number]) on 03/30/2023 11:42:29 AM Referred By: REFERRED SELF Confirmed By:Rodney Cary
--- OUTSIDE RECORDS SUMMARY | 2023-03-30 12:39 | External Medical Summary | Summary of Care ---
Author Name Unknown Organization [facility] Address [address] [facility] [address] Phone [phone] Care Team Providers Care Child And Family Counselor Name Role Phone Richa Burr Primary Care Provide r Encounter Details Date Type Department Care Team (Late st Contact Info) Description 03/29/2023 Result Scan Unspecified Department Shon Hernandez, DO [address] [place] [address] <No scans attached> Allergies Active Allergy Reactions Criticality Noted Date Comments Amoxicillin Cough 02/25/2016 SOB Ceftriaxone Other (Please comment) High 03/06/2011 Shortness of breath Doxycycline 10/01/2013 stuttering Ibuprofen Nausea/vomiting 06/08/2015 Per patient Lidocaine Other (Please comment) Medium 02/16/2011 Gets shakey, cold, and numbness Xopenex High 04/18/2012 "It stops my chest from getting a deep breath" Acetaminophen Itching 06/08/2015 Per patient documented as of this encounter (statuses as of 03/29/2023) Medications Medication Sig Dispensed Refills Start Date End Date Status ASPIRIN EC 81 MG PO TBECIndications:HTN , goal below 140/90 TAKR 1 TABLET EVERY DAY BY MOUTH 30 Tab 3 02/13/2013 Active Additional Information Patient taking differently: 81 mgOralDaily(AM), Reported on 06/20/2022 Cholecalciferol (VITAMIN D-3) 1000 units Capsule Take 3 Capsules by mouth in the morning and 3 Capsules before bedtime. 0 Active nitroglycerin (NITROSTAT) 0.4 MG SUBLIndications:Acu te on chronic diastolic heart failure (HCC),HTN, goal below 140/[address] 1 Tab under the tongue every 5 minutes as needed for Pain, Chest. up to 3 doses in 15 minutes 100 Tab 5 03/03/2019 Active Additional Information Patient not taking.Reported on 06/20/2022 budesonide (PULMICORT) 0.25 MG/2ML nebulizer solution Inhale 0.25 mg via nebulizer in the morning. As needed . 0 Active CPAP every night at bedtime. 0 Active Lantus SoloStar 100 UNIT/ML Subcutaneous Solution Pen-injector (Insulin Glargine) Inject 20 Units under the skin every night at bedtime. Hold for blood sugar less than 200. 1 Each 1 06/11/2020 Active Pen [place] 31G X 8 MM Use with nightly lantus injection. 50 Each 1 06/11/2020 Active Isosorbide Mononitrate ER 30 MG Oral Tablet Extended Release 24 Hour (Imdur)Indications: Essential hypertension with goal blood pressure less than 140/90 TAKE 2 TABLETS BY MOUTH DAILY 60 Tablet 1 02/15/2021 Active Metoprolol Succinate ER 100 MG Oral Tablet Extended Release 24 Hour (toPROL XL) Take by mouth 1 Tablet in the morning AND 1 Tablet before bedtime. 180 Tablet 3 09/19/2021 Active Sacubitril-Valsarta n 97-103 MG Oral Tablet (Entresto) Take by mouth 1 Tablet in the morning AND 1 Tablet before bedtime. 180 Tablet 3 09/19/2021 Active Pulse Oximeter For Finger Place on finger to monitor oxygen levels. 1 Each 0 09/19/2021 Active Spironolactone 25 MG Oral Tablet (Aldactone)Indicati ons:Chronic systolic HF (heart failure) (HCC),Hypertension goal BP (blood pressure) < 130/80 Take 2 tablets in the morning and 1 tablet in the afternoon 0 12/28/2021 Active Trulicity 4.5 MG/0.5ML Subcutaneous Solution Pen-injector 0 05/27/2022 Active Torsemide 20 MG Oral Tablet (Demadex)Indication s:Chronic systolic HF (heart failure) (HCC),Hypertension goal BP (blood pressure) < 130/80 Take 4 tablets in the morning and take 4 in the afternoon 360 Tablet 3 06/20/2022 Active documented as of this encounter (statuses as of 03/29/2023) Active Problems Problem Noted Date Diagnosed Date Dyslipidemia, goal LDL below 70 09/21/2021 Other acute pulmonary embolism without acute cor pulmonale 06/10/2020 Bilateral pneumonia 06/07/2020 Acute pulmonary embolism 06/07/2020 Nonadherence to medication 08/05/2019 Presence of automatic cardioverter/defibrillator (AICD) 05/20/2019 Chronic systolic HF (heart failure) 04/14/2019 Non-ischemic cardiomyopathy 04/14/2019 Type 2 diabetes mellitus wit h hemoglobin A1c goal of less than 7.0% 10/27/2013 Essential hypertension with goal blood pressure less than 140/90 10/08/2013 Sleep disturbance 09/19/2013 Drowsiness 09/19/2013 Diabetic polyneuropathy 09/19/2013 Overview: ICD-10 update of inactive term Diarrhea 08/18/2013 Dizziness 08/18/2013 Right-sided chest wall pain 07/22/2013 Sleepiness 02/25/2013 MARIELENA on CPAP 02/25/2013 Back pain 01/02/2013 Leg weakness, bilateral 01/02/2013 Spondylosis of lumbar joint 01/02/2013 Spondylolisthesis at L5-S1 level 01/02/2013 Acute URI 12/27/2012 Cough 12/27/2012 Nausea with vomiting 12/27/2012 MRSA cellulitis 12/27/2012 Malaise and fatigue 09/05/2012 Excoriation 08/24/2012 MRSA (methicillin resistant staph aureus) cultur e positive 08/24/2012 SOB (shortness of breath) on exertion 06/24/2012 Localized, primary osteoarthritis of ankle or fo ot 06/24/2012 Obesity, morbid (more than 1 00 lbs over ideal weight or BMI > 40) 06/04/2012 Overview: BMI= 51.62 06/04/12 Dermatitis 01/02/2012 Tinea cruris 01/02/2012 Stasis dermatitis of both legs 01/02/2012 Edema 01/02/2012 Diabetes mellitus type 2 in obese 12/25/2011 Anxiety state 09/26/2011 Mental subnormality 06/12/2011 VEINOUS STASIS ULCERS LEFT LEG 01/02/2011 STAPH SKIN INFECTION 09/22/2010 Obstructive sleep apnea 04/07/2010 Overview: 03/29/11 -- auto BIPAP 28/11 without oxygen 01/18/11 split PSG -- AHI 28, CPAP 10 PSG -- AHI 91 AHP ICD-10 update of inactive term Body mass index (BMI) of 45.0-49.9 in adult 02/12 Overview: ICD-10 update of inactive term LEFT ANKLE FRACTURE 200711/12/2009 Hereditary and idiopathic peripheral neuropathy 11/12/2009 Other specific developmental learning difficulti es 11/12/2009 Non-adherence to medical treatment documented as of this encounter (statuses as of 03/29/2023) Resolved Problems Problem Noted Date Diagnosed Date Resolved Date Acute kidney injury (nontraumatic) 06/09/2020 06/11/2020 Hemoptysis 06/07/2020 06/11/2020 Acute on chronic respiratory failure with hypoxia 11/02/2018 06/11/2020 HTN, goal below 140/80 04/09/201310/08 HTN, goal below 130/80 09/27/201204/09 Genetic Sleep Disorder [facility] Other*[id number] 12/21/2010 09/15/2015 HTN, goal below 140/90 11/12/200909/27 Family history of diabetes mellitus 11/12/2009 03/07/2011 Family history of other endo crine and metabolic diseases(V18.19) 11/12/2009 03/07/2011 Unresponsive episode 021 documented as of this encounter (statuses as of 03/29/2023) Immunizations Name Administration Dates Next Due Pneumococcal Polysaccharide PPV23 (Pneumovax) 08/07/2012 Seasonal Influenza, Split, I IV3, With Preserve, Inj 12/14/2013,10/31/2012,11/16/2011,12/30 TDAP (age 11 and older)(Adacel) 12/15/2010 documented as of this encounter Social History Tobacco Use Types Packs/Day Years Used Date Smoking Tobacco: Former Cigarettes 0.2 2 Smokeless Tobacco: Never Comments:Smoked a little age 14 - 16 Alcohol Use Standard Drinks/Week Comments Yes 0 (1 standard drink = 0.6 oz pure alcohol) wine coolers every once in awhile Sex and Gender Information Value Date Recorded Sex Assigned at Not on file Gender Identity Not on file Sexual Orientation Not on file Job Start Date Occupation Industry Not on file Not on file Not on file documented as of this encounter Functional Status Functional Status Response Date of Assess ment Are you deaf or do you have serious difficulty hearing? No 06/07/2020 Are you blind or do you have serious difficulty seeing, even when wearing glasses? No 06/07/2020 Do you have serious difficul ty walking or climbing stairs? (5 years old or older) Yes 06/09/2020 Do you have difficulty dress ing or bathing? (5 years old or older) Yes- helps 06/07/2020 Because of a physical, menta l, or emotional condition, do you have difficulty doing errands alone such as visiting a doctor s office or shopping? (15 years old or older) Yes- takes him 06/08/19 21 Cognitive Status Response Date of Assessm ent Because of a physical, menta l, or emotional condition, do you have serious difficulty concentrating, remembering, or making decisions? (5 years old or older) No 06/07/2020 documented as of this encounter Plan of Treatment Upcoming Encounters Date Type Department Care Team (Late st Contact Info) Description 04/03/2023 3:30 PM EST Office Visit Cardiology, [facility] [address] [facility] [place] [address] Alisha Patel PA-C [address] [place] [address] [place] [address] Health Maintenance Due Date Last Done Comments HIV Screening 12/18/1991 Depression Screening 04/21/2014 04/21/2013 Albumin/Creatinine Ratio 01/16/2015 014, 10/08/2013, 04/28/2013, Additional history exists Diabetic Foot Exam 01/16/2015 01/16/2014, 0 02/25/2013, 02/25/2013, Additional history exists Pneumococcal Vaccine: Pediatrics (0 to 5 Years) and At-Risk Patients (6 to 64 Years) (2 - PCV) 03/11/2016 03/11/2015, 08/07/2012 Diabetic Eye Exam 04/27/2017 04/27/2016, , 04/27/2016, Additional history exists Lipid Panel 12/18/2018 12/18/2013, 07/2013, 04/28/2013, Additional history exists Cologuard 2021 Colonoscopy 2021 Colorectal Cancer Screening 2021 Fecal Occult Blood Test 2021 Sigmoidoscopy 2021 COVID-19 Vaccine ( season) 2022 03/22/2021, 06/24/2020 Influenza Vaccine (FLU shot) (#1) 2022 11/25/2020, 10/21/2019, 10/21/2019, Additional history exists HbA1c 06/29/2023 12/29/2022, 06/12, 06/08/2020, Additional history exists GFR 12/30/2023 12/29/2022, 07/13, 12/28/2021, Additional history exists DTaP,Tdap,and Td Vaccines (3 - Td or Tdap) 02/02/2025 02/02/2015, 12/15/2010 Hepatitis B Completed 11/23/2015, 11/12, 05/24/2015, Additional history exists GARDASIL-HPV IMMUNIZATION SERIES Aged Out No longer eligible based on patient's age to complete this topic MENINGOCOCCAL (MENACTRA/MENVEO) Aged Out No longer eligible based on patient's age to complete this topic documented as of this encounter Medical Devices Not on filedocumented as of this encounter Procedures Procedure Name Priority Date/Time Associated Diagnosis Comments CARDIOLOGY SCANNED RESULT 03/29/2023 documented in this encounter Results * CARDIOLOGY SCANNED RESULT (03/29/2023) 03/29/2023 Shon OVALLE documented in this encounter Advance Directives Latest Code Status on File Code Status Date Activated Date Inactivated Comments Full Code 06/07/2020 1:09 PM 06/11/2020 6:57 PM This order reflects the patients wishes and were consensually agreed upon. Question Answer Comments Discussion of Advance Directives occurred with: Patient Code Status History Code Status Date Activated Date Inactivated Comments Full Code 11/02/2018 10:45 PM 11/09/2018 6:29 PM This order reflects the patients wishes and were consensually agreed upon. Question Answer Comments Discussion of Advance Directives occurred with: Patient Full Code 09/17/2012 12:26 PM 09/18/2012 4:54 PM This o rder reflects the patients wishes and were consensually agreed upon. Care Teams Child And Family Counselor Relationship Specialty Start Date End Date Richa Burr CRNP [address] [address] PCP - General Nurse Practitioner 12/29/22 documented as of this encounter
--- OUTSIDE RECORDS SUMMARY | 2023-03-30 12:39 | External Medical Summary | Summary of Care ---
Author Name Unknown Organization [facility] Address [address] [facility] [place] [address] Phone [phone] Care Team Providers Care Furnace Liner Name Role Phone Richa Burr Primary Care Provide r Reason for Visit * Reason Onset Date Comments Remote Patient Monitoring Alert 02/16/2023 Encounter Details Date Type Department Care Team (Late st Contact Info) Description 02/16/2023 Telephone Cardiology, [facility] [address] [facility] [place] [address] Alisha Patel PA-C [address] [facility] [place] [address] Remote Patient Monitoring Alert Allergies Active Allergy Reactions Criticality Noted Date [...] 200. 1 Each 1 06/11/2020 Active Pen [place] 31G X 8 MM Use with nightly [...] below 130/80 09/27/201204/09 Genetic Sleep Disorder [facility] Other*[id number] 12/21/2010 09/15/2015 HTN, goal below 140/90 11/12/200909/27 [...] No 06/07/2020 documented as of this encounter Miscellaneous Notes * Telephone Encounter - Melissa Syed LPN - 03/29/2023 10:38 AM EST Apparently this message was done'd from the nurse pool. So no follow up calls were attempted. Pt has a follow up with Alisha 04/03/2023. I attempted to reach the pt for an update and to remind him of that appt but had to leave a messageon his VM. * Telephone Encounter - Alisha Patel PA-C - 02/22/2023 3:44 PM EST If he is spitting up blood and lips are purple he should be evaluated in the ED. We had previously discussed heart transplant and he has various health issues that would not make him an ideal candidate at this point. I called patient with no answer, unable to leave message. * Telephone Encounter - Diane Doshi CMA - 02/22/2023 11:10 AM EST Pt returned call. Pt states he feels ok, but says he has been spitting up blood since Sunday and his lips are purple. His right leg is very swollen compared to his left leg. He states he is taking ALL of his medications as prescribed. He takes them with applesauce because they make him gag with water. Still having SOB, but not any worse then usual. He now has a jass sensor. States his blood sugar has been under control, but he needs a new heart and is asking why he can't be on a transplant list. Also complains he he has a rash all over his legs, because someone moved into their property and brought roaches with them which are now biting his legs. * Telephone Encounter - Williams Head RN - 02/22/2023 10:02 AM EST Called and left message on his phone to return the call to the clinic in regards to his pacer readings. * Telephone Encounter - Alisha Patel PA-C - 02/16/2023 12:43 PM EST Please contact patient to see how he is feeling and if he has been compliant with his medications. * Telephone Encounter - Melissa Syed LPN - 02/16/2023 12:16 PM EST Recent ICD remote shows a Possible OptiVol fluid accumulation: 23-Jan-2023 -- ongoing. documented in this encounter Plan of Treatment Upcoming Encounters Date Type Department Care Team (Late st Contact Info) Description 04/03/2023 3:30 PM EST Office Visit Cardiology, [facility] [address] [facility] [place] [address] Alisha Patel PA-C [address] [place] [address] Health Maintenance Due Date [...] Not on filedocumented as of this encounter Advance Directives Latest Code Status [...] and were consensually agreed upon. Care Teams Furnace Liner Relationship Specialty Start Date End Date Richa Burr CRNP [address] [address] PCP - General Nurse Practitioner 12/29/22 documented as of this encounter
--- OUTSIDE RECORDS SUMMARY | 2023-03-30 12:40 | External Medical Summary | Summary of Care ---
Author Name Unknown Organization [facility] Address [address] [place] [facility] [place] [address] Phone [phone] Care Team Providers Care Diazo Technician Name Role Phone Richa Burr Primary Care Provide r Reason for Visit * Reason Onset Date Comments Remote Patient Monitoring Alert 02/16/2023 Encounter Details Date Type Department Care Team (Late st Contact Info) Description 02/16/2023 Telephone Cardiology, [facility] [address] [facility] [place] [address] Alisha Patel PA-C [address] [facility] [place] [address] Remote Patient Monitoring Alert [...] 200. 1 Each 1 06/11/2020 Active Pen [place] 31G X 8 MM Use with nightly [...] below 130/80 09/27/201204/09 Genetic Sleep Disorder [facility] Other*[id number] 12/21/2010 09/15/2015 HTN, goal below 140/90 11/12/200909/27 [...] 04/03/2023 3:30 PM EST Office Visit Cardiology, [facility] [address] [facility] [place] [address] Alisha Patel PA-C [address] [place] [address] Health Maintenance Due Date [...] and were consensually agreed upon. Care Teams Diazo Technician Relationship Specialty Start Date End Date Richa Burr CRNP [address] [address] PCP - General Nurse Practitioner 12/29/22 documented as of this encounter
[2023-03-30] MEDS: OPTIRAY 320 125ml IV ONE (15:14)
--- NOTE | 2023-03-30 15:39 | CT Scan Report ---
CHEST CTA for PULMONARY ARTERIES CT DOSE: 954.06 mGy.cm HISTORY: Shortness of breath. TECHNIQUE: Multiaxial CT images of the chest were performed following the intravenous administration of contrast to evaluate the pulmonary arteries. 3D/Maximal intensity projection images were also obta ined. Sagittal and coronal reformations were also reviewed. A dose lowering technique was utilized a dhering to the principles of ALARA. COMPARISON STUDY: Chest CT 08/21/2022. FINDINGS: Limited views of the upper abdomen demonstrate a normal liver, spleen, and adrenal glands. Trace bilateral pleural effusions. Mild body wall edema. Gynecomastia again noted. The thyroid gland enhances normally. Normal caliber esophagus. The heart remains mildly enlarged. No pericardial effusi on. There is a left-sided pacemaker again noted. Stable prominent mediastinal lymph nodes. No hilar l ymphadenopathy. Normal caliber thoracic aorta with no evidence for a dissection. Suboptimal opacifica tion of the pulmonary arteries due to the timing of contrast. In addition, respiratory motion artifac t results in nondiagnostic evaluation of the majority of the segmental/subsegmental pulmonary arterie s. No filling defects within the main or lobar pulmonary arteries to suggest a pulmonary embolus. No acute fractures. No pneumothorax. The central airways are patent. Scattered patchy groundglass airspa ce opacities with interlobular septal thickening. This is most pronounced within the right lung. This favors pulmonary edema. A superimposed atypical/viral pneumonia would be difficult to exclude. This is improved compared to the prior chest CT. IMPRESSION: 1. No evidence for a central pulmonary embolus. 2. Scattered patchy groundglass airspace opacities with interlobular septal thickening. This is most pronounced within the right lung. This favors pulmonary edema. A superimposed atypical/viral pneumoni a would be difficult to exclude. This is improved compared to the prior chest CT. 3. Trace bilateral pleural effusions. ACT 112: Negative or not required by law. Electronically signed by: Andrea Bear M.D. 03/30/2023 3:38 PM
[2023-03-31] MEDS: ACETAMINOPHEN 325 MG TAB PO PRN (02:27)
[2023-03-31] MEDS: ALBUT/IPRATROP 3MG/0.5MG NEB 3 ML VIAL NEB SCH (07:06)
[2023-03-31 08:08] LABS: Albumin Globulin Ratio 1.2 (0.9-2); Albumin Level 3.5 gm/dl (3.4-5.0); BUN Creatinine Ratio 24.7 (10-20); Bilirubin,Total 0.6 mg/dl (0.2-1.0); Calcium 8.3 mg/dl (8.6-10.3); Creatinine Clr Calc Pharmacy 155.6 ml/min; Est GFR (African American) 121.1 ml/min; Est GFR (Non-African American) 104.5 ml/min; Magnesium 1.8 mg/dl (1.7-2.4); Total Protein 6.5 gm/dl (6.0-8.3)
--- NOTE | 2023-03-31 11:18 | Hospitalist Progress Note ---
Date of Service March 31, 2023 Assessment & Plan (1) Respiratory failure: Plan: 47yo male with history of Non ischemic cardiomyopathy( HFrEF), COPD and MARIELENA presenting with acute hypoxic respiratory failure requiring rescue BIPAP/iv bumex in the ER. Patient reports sudden onset of symptoms this AM at 0800. -Bumex 2mg IV BID, continue diuresis to get space with his blood pressure for persistent loop diuretics will reduce spironolactone to once a day Encouraged to have daily weights encouraged to have dietary restriction LOP patient is been ordering double portions -DuoNebs q4 hours scheduled -Albuterol q 2hr PRN due to abrupt nature of onset, CTA was performed and negative for pe (2) Combined systolic and diastolic heart failure: Plan: weight is up appx 8kg -Bumex 2mg IV BID -typically follows [facility] heart failure clinic -Continue Spironolactone reduced dose to once a day on 03/31/2023 -Continue Entresto -Continue Metoprolol patient is slightly bradycardic will continue dosing at this time -Continue Isosorbide moninitrate Acute on chronic combined systolic and diastolic CHF (3) COPD (chronic obstructive pulmonary disease): Plan: Patient given Solumedrol in the ER. No wheezing on exam. no further steroids Respiratory distress seems to be secondary to his heart failure and not an exacerbation of his COPD -Continue Symbicort -DuoNeb q 4 hours -Albuterol q2hr PRN -Continue Budesonide (4) Obstructive sleep apnea: Plan: Chronic -Patient states he was never on home CPAP this was entered erroneously will order CPAP at night to aid in diuresis (5) Hypertension: Plan: Blood pressure elevated -Continue home medications, Metoprolol, Entresto, Isosorbide, Spironolactone. -Monitor (6) Diabetes mellitus type II, uncontrolled: Plan: Poorly controlled. Last EbuH0B=42.9 on 09/08/22 -Lantus 10u BID -ISS -Goal blood sugar 110 - 140 -Check a1c Admission and Anticipated Discharge Date Admission Date: March 29, 2023 Subjective acute exacerbation of chronic systolic and diastolic HF, improving less swelling less BRISCOE Physical Exam Physical Exam: pt is in no distress, he is sitting up no real distress, continues with rales and basilar decreased breath sounds LE with trace to 1+ edema Results & Data Results & Data Vital Signs (Past 12 Hours) Vital Signs Temp Pulse Pulse Resp BP Pulse Ox O2 Del Method 03/31/23 10:58 74 18 94 Nasal Cannula 03/31/23 07:14 20 99/66 L 99 BiPAP 03/31/23 07:06 79 19 99 03/31/23 07:06 79 19 99 BiPAP 03/31/23 03:29 97.5 F L 79 20 112/70 99 BiPAP 03/31/23 03:20 100 H 21 96 03/31/23 03:14 90 18 92 BiPAP 03/30/23 23:30 90 O2 Flow Rate FiO2 03/31/23 10:58 5 03/31/23 07:14 03/31/23 07:06 45 03/31/23 07:06 45 03/31/23 03:29 45 03/31/23 03:20 45 03/31/23 03:14 45 03/30/23 23:30 Laboratory Results Reviewed CBC reviewed chemistry PG Care Time/CCT Total # of Minutes Spent Total Time Spent with Patient: Total time spent is greater than 50% in coordination of care (as documented) at patient's floor/unit and/or counseling patient: Coding Level of Care Code 84237 SUB INP/OBS CARE 3/50MIN Diagnoses Respiratory failure J96.90 Combined systolic and diastolic heart failure I50.43 Heart failure chronicity: acute on chronic Chronic obstructive pulmonary disease, unspecified COPD type J44.9 COPD type: unspecified COPD Obstructive sleep apnea G47.33 Hypertension I10 Hypertension type: unspecified Uncontrolled type 2 diabetes mellitus with hyperglycemia E11.65 Glycemic state: with hyperglycemia (2) Combined systolic and diastolic heart failure Heart failure chronicity: acute on chronic Qualified Code(s): I50.43 - Acute on chronic combined systolic (congestive) and diastolic (congestive) heart failure (3) COPD (chronic obstructive pulmonary disease) COPD type: unspecified COPD Qualified Code(s): J44.9 - Chronic obstructive pulmonary disease, unspecified (5) Hypertension Hypertension type: unspecified Qualified Code(s): I10 - Essential (primary) hypertension (6) Diabetes mellitus type II, uncontrolled Glycemic state: with hyperglycemia Qualified Code(s): E11.65 - Type 2 diabetes mellitus with hyperglycemia
[2023-03-31] MEDS: METOPROLOL SUCC 50MG EXT REL TAB PO SCH (21:07)
[2023-03-31] MEDS: SPIRONOLACTONE 25 MG TAB PO SCH (21:08)
[2023-04-01 07:42] LABS: Albumin Globulin Ratio 1.1 (0.9-2); Albumin Level 3.4 gm/dl (3.4-5.0); BUN Creatinine Ratio 25.3 (10-20); Bilirubin,Total 0.5 mg/dl (0.2-1.0); Calcium 8.5 mg/dl (8.6-10.3); Creatinine Clr Calc Pharmacy 158.9 ml/min; Est GFR (African American) 122.3 ml/min; Est GFR (Non-African American) 105.5 ml/min; Magnesium 1.8 mg/dl (1.7-2.4); Potassium 4.1 mmol/L (3.5-5.1); Total Protein 6.4 gm/dl (6.0-8.3)
--- NOTE | 2023-04-01 13:45 | Discharge Summary ---
Date of Service April 01, 2023 Admission HPI Per Admitting Provider Alok Huff is a 47yo male with history of HFrEF due to NICM, EF of 15-20%, DM, COPD presenting with shortness of breath. Patient has been in his usual state of health until waking this AM around 0800. He felt acutely short of breath - was unable to move or ambulate due to shortness of breath. He turned up his oxygen with improvement briefly. His symptoms progressed throughout the day which prompted him to come to the ER. He has some left sided chest discomfort as well as some back pain and neck pain. He has been feeling hot today but no fever or chills. He denies abdominal pain, nausea, vomiting, diarrhea or constipation. No URI symptoms. He has some worsening edema. Patient's Lasix dose was increased appx 3.5 months ago. He reports he has been taking his medications as prescribed and does not miss any doses. Weight last recorded at 150kg on 03/26/23 now 158.8kg In the ER patient tachycardic, tachypneic and hypoxic on arrival. He was placed on BiPAP with improvement. ER Course: Methylprednisolone 125mg Nitro paste ALbuterol 3mL Bumex 4mg IV Principal Diagnosis acute on chronic systolic and diastolic heart failure with history of non ischemic cardiomyopathy sleep apnea morbid obesity Discharge Exam pt is not at his baseline distress, has improved le edema Discharge Data Allergies Allergy/AdvReac Type Severity Reaction Status Date / Time ceftriaxone Allergy Severe SHORTNESS Verified 03/26/23 13:55 OF BREATH lidocaine Allergy Severe SHORTNESS Verified 03/26/23 13:55 OF BREATH, diaphoretic, hives procaine Allergy Severe SHORTNESS Verified 03/26/23 13:55 OF BREATH, diaphoretic, hives amoxicillin Allergy Intermediate HIVES/FACIAL Verified 03/26/23 13:55 SWELLING clavulanic acid Allergy Intermediate HIVES/FACIAL Verified 03/26/23 13:55 SWELLING lisinopril Allergy Intermediate HIVES Verified 03/26/23 13:55 shellfish derived Allergy Unknown Verified 03/26/23 13:55 acetaminophen AdvReac Mild NAUSEA Verified 03/26/23 13:55 albuterol AdvReac Mild proair Verified 03/26/23 13:55 "trouble taking breaths" Fish Containing Products AdvReac Unknown Unknown Verified 03/26/23 13:55 Consultations 03/29/23 21:31 ED Decision to Admit Stat Ordered Studies Chest X-Ray 03/29/23 19:04 SINGLE VIEW CHEST CLINICAL HISTORY: Atypical chest pain. FINDINGS: An AP, portable, upright chest radiograph is compared to study dated 10/22/2022 and correlated with chest CT dated 08/21/2022. A single-lead cardiac AICD is unchanged in position. The heart is enlarged. There is evidence of congestive failure. Bilateral airspace opacities likely represent pulmonary ed noah. There are layering pleural effusions with dependent consolidation. No pneumothorax is seen. The skeletal structures appear osteopenic. The bony thorax is grossly intact. IMPRESSION: 1. Cardiomegaly and the ICD without evidence of congestive failure. 2. Bilateral airspace opacities likely represent pulmonary edema. Correlate clinically for evidence of a superimposed pneumonia. Radiographic follow-up to resolution is recommended. 3. Small pleural effusions with dependent consolidation. ACT 112: Negative or not required by law. Electronically signed by: Abhilash Carpio M.D. 03/29/2023 7:41 PM Chest CTA 03/30/23 13:26 CHEST CTA for PULMONARY ARTERIES CT DOSE: 954.06 mGy.cm HISTORY: Shortness of breath. TECHNIQUE: Multiaxial CT images of the chest were performed following the intravenous administration of contrast to evaluate the pulmonary arteries. 3D/Maximal intensity projection images were also obtained. Sagittal and coronal reformations were also reviewed. A dose lowering technique was utilized adhering to the principles of ALARA. COMPARISON STUDY: Chest CT 08/21/2022. FINDINGS: Limited views of the upper abdomen demonstrate a normal liver, spleen, and adrenal glands. Trace bilateral pleural effusions. Mild body wall edema. Gynecomastia again noted. The thyroid gland enhances normally. Normal caliber esophagus. The heart remains mildly enlarged. No pericardial effusion. There is a left-sided pacemaker again noted. Stable prominent mediastinal lymph nodes. No hilar lymphadenopathy. Normal caliber thoracic aorta with no evidence for a dissection. Suboptimal opacification of the pulmonary arteries due to the timing of contrast. In addition, respiratory motion artifact results in nondiagnostic evaluation of the majority of the segmental/subsegmental pulmonary arteries. No filling defects within the main or lobar pulmonary arteries to suggest a pulmonary embolus. No acute fractures. No pneumothorax. The central airways are patent. Scattered patchy groundglass airspace opacities with interlobular septal thickening. This is most pronounced within the right lung. This favors pulmonary edema. A superimposed atypical/viral pneumonia would be difficult to exclude. This is improved compared to the prior chest CT. IMPRESSION: 1. No evidence for a central pulmonary embolus. 2. Scattered patchy groundglass airspace opacities with interlobular septal thickening. This is most pronounced within the right lung. This favors pulmonary edema. A superimposed atypical/viral pneumonia would be difficult to exclude. This is improved compared to the prior chest CT. 3. Trace bilateral pleural effusions. Electronically signed by: Andrea Bear M.D. 03/30/2023 3:38 PM Hospital Course (1) Respiratory failure: 47yo male with history of Non ischemic cardiomyopathy( HFrEF), COPD and MARIELENA presenting with acute hypoxic respiratory failure requiring rescue BIPAP/iv bumex in the ER. Respiratory failure is secondary to acute on chronic systolic and diastolic heart failure -Pt did have good diuresis with Bumex 2mg IV BID, continue diuresis at home with torsemide, recommend daily weights and dietary restriction of salt Continue on home oxygen 5 L nasal cannula , CTA was performed and negative for pe (2) Combined systolic and diastolic heart failure: now near baseline -typically follows [facility] -Continue Spironolactone reduced dose to once BID -Continue Entresto -Continue Metoprolol patient is slightly bradycardic will continue dosing at this time -Continue Isosorbide moninitrate Acute on chronic combined systolic and diastolic CHF (3) COPD (chronic obstructive pulmonary disease): Patient given Solumedrol in the ER. No wheezing on exam. no further steroids Respiratory distress seems to be secondary to his heart failure and not an exacerbation of his COPD -Continue Symbicort -DuoNeb q 4 hours -Albuterol q2hr PRN -Continue Budesonide (4) Obstructive sleep apnea: Chronic -will work with outpt doctor to have home CPAP (5) Diabetes mellitus type II, uncontrolled: Poorly controlled. HgbA1C 9.8% -continue home medications lantus, dulaglutide pt obviously non compliant, ordering double portions while hospitalized Total Time Total Time Spent Total Time Spent (In Minutes): It required greater than 30 minutes to prepare this patient for discharge. Discharge Plan Discharge Items Patient Disposition: Home - Self-Care Reason For Visit: HYPOXIC RESPIRATORY FAILURE, CHF Discharge Diagnosis: Acute on chronic systolic and diastolic heart failure chronic sleep apnea- try to get home cpap unit and use it for sleep Activity: Resume your previous activity Non-emergency contact: Primary Care Provider and Machine Sprayer Call non-emergency contact if: your symptoms worsen Follow-up/Referrals: Gosia Becker MD [Primary Care Provider] - 04/09/23 11:00 am (with Vicente Penaloza PA-C. ) Diet: Low Sodium (2gm) Addtl Attending Provider Instructions: Jorge Luis, it is very important that you limit your salt intake at home. Food is likely directly contributing to you retaining water and coming back to the hospital. Is also very important if you would attempt to lose weight as this is going to have a direct impact on your length of living. Your overweight status is likely responsible and somewhat for your recurrent fluid retention issues. Please try to keep to a 2000 to 2500-calorie a day diet and keep your salt intake to less than 2000 mg Take your diuretic medication (water pill) twice a day. If you weigh yourself and gain more than 3 pounds in 1 day please take 1 additional dose of your Demadex (torsemide) If you gain weight 2 days in a row this should require a call to your mail deliverer for further instructions on how to use medication to relieve your fluid retention. Although you do have a heart condition much of what Land you back in the hospital is under your own control if you begin to pay more attention to things will likely have less of a chance of being readmitted to our hospital. Pending Studies at Discharge: No Stand-Alone Forms: [facility] [place], Smoking Cessation Medications and DC Order Prescriptions: New (DME) Oxygen Home [id number] Liters Per Minute See Rx Instructions .ROUTE Qty: 5 0RF Rx Instructions: As directed Continued insulin glargine [Lantus Solostar U-100 Insulin] 100 unit/mL (3 mL) insulin pen 20 unit subcut HS 30 Days Qty: 18 2RF Rx Instructions: Inject 20 Units under the skin every night at bedtime. Hold for blood sugar less than 200. albuterol sulfate 90 mcg/actuation HFA aerosol inhaler 1 inh inhalation QID Qty: 8.5 2RF (DME) pen needle, diabetic [Comfort EZ Pen [place]] 31 gauge x 5/16" needle See Rx Instructions .Route Qty: 100 3RF Rx Instructions: use when administering insuling daily Entresto 97-103 mg tablet 1 tab PO BID Qty: 60 5RF metoprolol succinate 100 mg tablet extended release 24 hr 100 mg PO BID Qty: 60 5RF isosorbide mononitrate 30 mg tablet extended release 24 hr 60 mg PO DAILY budesonide 0.25 mg/2 mL suspension for nebulization 0.25 mg inhalation DAILY PRN (Reason: Shortness Of Breath) budesonide-formoterol [Symbicort] 160-4.5 mcg/actuation HFA aerosol inhaler 2 inh inhalation BID Qty: 3 3RF Rx Instructions: 2 puffs twice per day. Rinse mouth after each use torsemide 20 mg tablet 100 mg .ROUTE BID Rx Instructions: 100 mg twice a day; Take 4 tablets in the morning and take 4 in the afternoon (DME) OneTouch Verio test strips Strip See Rx Instructions miscellaneous .MEDSUPPLY Qty: 100 5RF Rx Instructions: check 3x a day Trulicity 4.5 mg/0.5 mL pen injector 4.5 mg SUBCUT Q7D Qty: 2 5RF Rx Instructions: wed (DME) FreeStyle Karla 2 [place] Mis See Rx Instructions .Route Qty: 1 0RF Rx Instructions: for use with Karla 2 sensor (DME) FreeStyle Karla 2 Sensor Kit See Rx Instructions .Route Qty: 2 11RF Rx Instructions: change sensor every 14 days (DME) lancets [OvaGene OncologyTouch Delica Plus Lancet] 30 gauge misc See Rx Instructions .ROUTE .MEDSUPPLY Qty: 100 5RF Rx Instructions: use new lancet 3x a day (DME) blood-glucose meter [OvaGene OncologyTouch Verio Flex meter] Mis See Rx Instructions .ROUTE .MEDSUPPLY Qty: 1 0RF Rx Instructions: As directed nystatin 100,000 unit/gram powder 1 applic topical BID Qty: 60 0RF nitroglycerin [Nitrostat] 0.4 mg tablet, sublingual 0.4 mg sublingual UD PRN (Reason: Chest Pain) aspirin [Neisha Low Dose Aspirin] 81 mg tablet,delayed release (DR/EC) 81 mg PO QAM albuterol sulfate 2.5 mg /3 mL (0.083 %) solution for nebulization 2.5 mg inhalation Q6H Rx Instructions: Use every 6 hours as needed with nebulizer Changed spironolactone [Aldactone] 25 mg tablet 25 mg PO BID Qty: 60 5RF Rx Instructions: Take 2 tablets in the morning and 1 tablet in the afternoon Discharge Orders: Discharge Order (Routine); Ordered 04/01/23 Ordered By: Shon Gonzalez Admission Data Admit Date/Time: 03/29/23 22:15 Attending Provider: Shon Gonzalez Admit Provider: Ciarra Burr Primary Care Provider: Gosia Becker Other Providers: Ciarra Burr Other Interventions: Discharge Summary Assessment (RN) Last Done: 04/01/23 12:20 Coding Level of Care Code 82327 INP/OBS DISCH >30 MIN Diagnoses Respiratory failure J96.90 Combined systolic and diastolic heart failure I50.43 Heart failure chronicity: acute on chronic Chronic obstructive pulmonary disease, unspecified COPD type J44.9 COPD type: unspecified COPD Obstructive sleep apnea G47.33 Uncontrolled type 2 diabetes mellitus with hyperglycemia E11.65 Glycemic state: with hyperglycemia
== END 2023-04-01 17:45 | disposition home or self-care (01) | DRG 291 ==
LOC: ED 18:57 → 2S 22:15 → SUATTDRO 22:15 → 2S 03-30 00:09
DX: E66.01 Morbid (severe) obesity due to excess calories; J96.10 Chronic respiratory failure, unspecified whether with hypoxia or hypercapnia; Z79.82 Long term (current) use of aspirin; I50.43 Acute on chronic combined systolic (congestive) and diastolic (congestive) heart failure; J96.01 Acute respiratory failure with hypoxia; E13.9 Other specified diabetes mellitus without complications; Z88.8 Allergy status to other drugs, medicaments and biological substances; Z99.81 Dependence on supplemental oxygen; I11.0 Hypertensive heart disease with heart failure; Z68.43 Body mass index [BMI] 50.0-59.9, adult; Z91.013 Allergy to seafood; Z88.1 Allergy status to other antibiotic agents

== ENCOUNTER 2023-10-11 23:42 | Inpatient (IN) ==
--- NOTE | 2023-10-12 00:21 | Emergency Department Note ---
History of Present Illness General Chief complaint: Shortness of Breath/Dyspnea Stated complaint: SHORTNESS OF BREATH Time Seen by Provider: 10/12/23 00:11 History of Present Illness This 47-year-old male with heart failure presents ER complaining of shortness of breath for the past few days. Patient states he is currently out of the cold as he got kicked out of his apartment. He states he has been compliant with all his heart medications. Patient denies chest pain, fevers, flulike illness, abdominal pain, increasing leg pain or swelling. He states he has been losing weight. Home Medications Medication Instructions Recorded Confirmed Type nitroglycerin 0.4 mg sublingual 0.4 mg sublingual UD PRN Chest Pain 04/24/19 10/12/23 History tablet (Nitrostat) metoprolol succinate 100 mg 100 mg PO BID #60 tabs 02/21/21 10/12/23 Rx tablet,extended release 24 hr sacubitril 97 mg-valsartan 103 mg 1 tab PO BID #60 tabs 02/21/21 10/12/23 Rx tablet (Entresto) aspirin 81 mg tablet,delayed 81 mg PO QAM 06/16/21 10/12/23 History release (Neisha Low Dose Aspirin) albuterol sulfate 2.5 mg/3 mL 2.5 mg inhalation Q6H PRN 12/02/21 10/12/23 History (0.083 %) solution for nebulization Shortness Of Breath Or Wheezing budesonide 0.25 mg/2 mL suspension 0.25 mg inhalation DAILY PRN 09/15/22 10/12/23 History for nebulization Shortness Of Breath blood-glucose meter ([employer]Touch #1 ea 10/12/22 09/03/23 Rx Verio Flex Meter) lancets 30 gauge ([employer] Establish[employer]Touch Delica #100 ea 10/12/22 09/03/23 Rx Plus Lancet) Symbicort 160 mcg-4.5 2 inh inhalation BID #3 Inhalers 11/14/22 10/12/23 Rx mcg/actuation HFA aerosol inhaler (budesonide-formoterol) blood sugar diagnostic ([employer]Touch #100 ea 01/17/23 09/03/23 Rx Verio test strips) flash glucose scanning reader #1 ea 02/09/23 09/03/23 Rx (FreeStyle Karla 2 [place]) flash glucose sensor (FreeStyle #2 ea 02/09/23 09/03/23 Rx Karla 2 Sensor kit) pen needle, diabetic 31 gauge x #100 ea 02/16/23 09/03/23 Rx 5/16" (Comfort EZ Pen Colo) Oxygen Home #5 L 04/01/23 09/03/23 Rx spironolactone 25 mg tablet 25 mg PO BID #60 tabs 04/09/23 10/12/23 Rx (Aldactone) atorvastatin 10 mg tablet 10 mg PO DAILY #90 tabs 04/19/23 10/12/23 Rx torsemide 100 mg tablet 100 mg PO BID #180 tabs 04/19/23 10/12/23 Rx isosorbide mononitrate 30 mg 60 mg (2 x 30 mg) PO DAILY #90 tabs 05/14/23 10/12/23 Rx tablet,extended release 24 hr hydroxyzine HCl 25 mg tablet 25 mg PO TID PRN itching #90 tabs 05/31/23 10/12/23 Rx triamcinolone acetonide 0.025 % 1 applic topical TID PRN rash #454 05/31/23 10/12/23 Rx topical cream grams Lantus Solostar U-100 Insulin 100 60 unit (0.6 mL) subcut HS 90 days 06/19/23 10/12/23 Rx unit/mL (3 mL) subcutaneous pen #60 mL (insulin glargine) blood-glucose meter,continuous #1 ea 09/03/23 09/03/23 Rx (FreeStyle Karla 3 [place]) blood-glucose sensor (FreeStyle #2 ea 09/03/23 09/03/23 Rx Karla 3 Sensor device) albuterol sulfate 90 mcg/actuation 1 inh inhalation QID PRN Shortness 10/12/23 10/12/23 History aerosol inhaler Of Breath Or Wheezing nystatin 100,000 unit/gram topical 1 applic topical BID PRN Skin 10/12/23 10/12/23 History powder Irritation tirzepatide 5 mg/0.5 mL 5 mg subcut WK 10/12/23 10/12/23 History subcutaneous pen injector Allergies Allergy/AdvReac Type Severity Reaction Status Date / Time albuterol Allergy Severe proair Verified 10/12/23 00:44 "trouble taking breaths" ceftriaxone Allergy Severe SHORTNESS Verified 10/12/23 00:44 OF BREATH lidocaine Allergy Severe SHORTNESS Verified 10/12/23 00:44 OF BREATH, diaphoretic, hives procaine Allergy Severe SHORTNESS Verified 10/12/23 00:44 OF BREATH, diaphoretic, hives amoxicillin Allergy Intermediate HIVES/FACIAL Verified 10/12/23 00:44 SWELLING clavulanic acid Allergy Intermediate HIVES/FACIAL Verified 10/12/23 00:44 SWELLING lisinopril Allergy Intermediate HIVES Verified 10/12/23 00:44 shellfish derived Allergy Unknown Unknown Verified 10/12/23 00:44 acetaminophen AdvReac Mild NAUSEA Verified 10/12/23 00:44 Fish Containing Products AdvReac Unknown Unknown Verified 10/12/23 00:44 Past Med/Surg History Problem List (Updated 10/12/23 @ 01:11 by Sheridan Comer PA-C) Hypomagnesemia (Acute) Acute congestive heart failure (Acute) Type 2 diabetes mellitus with peripheral neuropathy Type 2 diabetes mellitus with obesity Obstructive sleep apnea Diabetic peripheral neuropathy Non-proliferative diabetic retinopathy, both eyes Uncontrolled diabetes mellitus with hyperglycemia COPD (chronic obstructive pulmonary disease) (Chronic) 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 Difficult to manage. Integrated into heart failure clinic. Frequent admissions for heart failure exacerbations. Echo (05/31) EF=25-30% with mod to severe global hypokinesis, basal kelsi-septal akinetic wall, LVH, RVSP elevated at 30-40mmHg, and mod dilated ascending aorta. Managed medically with ASA + BB + ARB/Neprilysin inhibitor (Entresto) + high dose furosemide (160mg BID) + metolazone (3x weekly). Considering ICD given EF. NICM (nonischemic cardiomyopathy) (Acute) Pt admitted for elective ICD. Underwent procedure without any complications monitored over night and discharged home. Chronic respiratory failure AICD (automatic cardioverter/defibrillator) present Normocytic anemia Hypertension (Chronic) Poor intravenous access Morbid obesity with BMI of 50.0-59.9, adult Chronic anticoagulation Diabetes mellitus type II, uncontrolled (Chronic) Urinary bladder incontinence Hx of local infection of skin and subcutaneous tissue Ambulatory dysfunction (Chronic) Recurrent infection of skin Pulmonary nodule V tach (Acute) HFrEF (heart failure with reduced ejection fraction) Hemoptysis (Acute) Intellectual disability Medical non-compliance Vitamin D deficiency Medical History Respiratory failure Pulmonary edema Small bowel obstruction Housing instability, currently housed, at risk for homelessness Hearing loss of both ears Nonproliferative retinopathy due to secondary diabetes Dilatation of thoracic aorta Iliac aneurysm Vitamin D insufficiency Previously deficient, taking Vit D supplementation Umbilical hernia Lung nodule Fatty liver Surgical History H/O oral surgery History of carpal tunnel surgery S/P tonsillectomy History of cholecystectomy Family History Father , age 57 of an [place]. Heart disease Myocardial infarction Mother , age 67 of a ruptured neck vessel Sudden Other Depression Lung disease No pertinent family history Denies family history of Ovarian cancer Prostate cancer Breast cancer Colorectal cancer Social History Smoking Status: Former smoker Tobacco Type: Cigarettes Age Started Using Tobacco: 14; Age Quit Using Tobacco: 18; Cigarettes Per Day: 40; Second Hand Exposure: No; Do You Dip or Chew Tobacco: No; Hx Alcohol Use: No Hx Substance Use: No Preferred Language: Jordanian Communication Ability: Effective Visual Impairment: No Limitations Hearing Ability: Normal Ward Helper Required: No Beliefs That Will Affect Care: None marital status: Current Living Situation: Spouse Current Living Situation Comment: Lives at home with current occupational status: unemployed How many Children do You have: 0 Feels Safe at Home: Yes Childhood Exposure to Second-Hand Smoke: Yes Dental Care, Regularly: Yes Physical Activity Frequency: Does not Exercise Seatbelt Use: never Sunscreen Use: No Assistive Devices: Cane, Oxygen - Continuous and Walker Review of Systems A total of 10 systems reviewed and were otherwise negative Physical Exam Vital Signs Vital Signs - 24 hr 10/11/23 23:35 10/12/23 00:05 10/12/23 00:14 Temperature 36.9 C Temperature Source Axillary Pulse Rate 110 H 122 H 123 H Pulse Rate from SpO2 Sensor Respiratory Rate 22 30 H Respiratory Effort / Characteristics Labored Spontaneous Labored Pursed Lip Short of Breath SOB on Exertion Respiratory Depth Deep Respiratory Pattern Tachypnea Regular Rapid/Shallow Blood Pressure 148/113 H Blood Pressure Mean 124 Pulse Oximetry 96 97 Oxygen Delivery Method CPAP Fraction of Inspired Oxygen 40 Sepsis Recent Fever Within 48 Hours No Sepsis New/Unexplained Change in Mental Status N/A Sepsis Action Taken by Nursing No Action Required 10/12/23 00:23 10/12/23 00:30 10/12/23 00:30 Temperature Temperature Source Pulse Rate 108 H Pulse Rate from SpO2 Sensor 109 H Respiratory Rate 22 Respiratory Effort / Characteristics Labored Respiratory Depth Normal Respiratory Pattern Blood Pressure 146/109 H 146/109 H Blood Pressure Mean 121 122 Pulse Oximetry 96 Oxygen Delivery Method BiPAP Fraction of Inspired Oxygen Sepsis Recent Fever Within 48 Hours Sepsis New/Unexplained Change in Mental Status Sepsis Action Taken by Nursing 10/12/23 00:30 10/12/23 00:30 10/12/23 00:30 Temperature Temperature Source Pulse Rate Pulse Rate from SpO2 Sensor Respiratory Rate Respiratory Effort / Characteristics Respiratory Depth Respiratory Pattern Blood Pressure 146/109 H 146/109 H 146/109 H Blood Pressure Mean 122 122 122 Pulse Oximetry Oxygen Delivery Method Fraction of Inspired Oxygen Sepsis Recent Fever Within 48 Hours Sepsis New/Unexplained Change in Mental Status Sepsis Action Taken by Nursing 10/12/23 01:06 Temperature Temperature Source Pulse Rate 104 H Pulse Rate from SpO2 Sensor 104 H Respiratory Rate 30 H Respiratory Effort / Characteristics Respiratory Depth Respiratory Pattern Blood Pressure Blood Pressure Mean Pulse Oximetry 92 Oxygen Delivery Method Fraction of Inspired Oxygen Sepsis Recent Fever Within 48 Hours Sepsis New/Unexplained Change in Mental Status Sepsis Action Taken by Nursing VITALS: Vitals are noted on the nurse's note and reviewed by myself. Vital signs stable. GENERAL: White male on BiPAP when I arrived into the room, in no acute distress, nondiaphoretic, well-developed well-nourished. SKIN: Capillary reflex less than 2 seconds. HEENT: Normocephalic. PERRLA. EOMI. Nares patent. Mucous membranes moist. Neck is supple without nuchal rigidity. HEART: Regular rate and rhythm LUNGS: Mild bibasilar rales. No retractions or accessory muscle use. ABDOMEN: Positive bowel sounds x 4. Normal tympanic percussion. Soft, nontender, without masses or organomegaly. Banks sign negative. No guarding or rebound tenderness. no CVA tenderness MUSCULOSKELETAL: No gross musculoskeletal defects. NEURO: Patient was alert and oriented to person place and time. No focal neurological deficits. Medical Decision Making Medical Records Attestation: I reviewed the patient's medical records. Home Medications Current Medication List: was personally reviewed by me Laboratory Data Attestation: I reviewed the patient's lab results. 10/12/23 00:00 10/12/23 00:00 Lab Results 10/12/23 10/12/23 10/12/23 Range/Units 00:00 00:00 00:32 WBC 12.30 H (4.8-10.8) K/ul RBC 5.36 (4.70-6.10) M/uL Hgb 15.7 (14.0-18.0) g/dl Hct 46.3 (42.0-52.0) % MCV 86.4 (80.0-100.0) fL MCH 29.3 (25.0-34.0) pg MCHC 33.9 (32.0-36.0) g/dL RDW Std Deviation 46.5 H (36.4-46.3) fL RDW Coeff of Zoltan 14.8 H (11.5-14.5) % Plt Count 161 (130-400) K/uL MPV 10.6 (9.4-12.4) fL Immature Gran % (Auto) 0.5 % Neut % (Auto) 81.8 % Lymph % (Auto) 10.8 % [place] % (Auto) 6.2 % Eos % (Auto) 0.5 % Baso % (Auto) 0.2 % Neut # (Auto) 10.07 H (1.40-6.50) K/uL Lymph # (Auto) 1.33 (1.20-3.40) K/uL [place] # (Auto) 0.76 H (0.11-0.59) K/uL Eos # (Auto) 0.06 (0.00-0.50) K/uL Baso # (Auto) 0.02 (0.00-0.20) K/uL Immature Gran # (Auto) 0.06 (0.01-0.20) K/uL VBG pH 7.46 H (7.36-7.41) VBG pCO2 38 (38-50) mmHg VBG pO2 66 mmHg VBG HCO3 27 mmol/L VBG O2 Saturation 93.3 % VBG Base Excess 3.1 mEq/L Sodium 137 (136-145) mmol/L Potassium 3.8 (3.5-5.1) mmol/L Chloride 103 (98-107) mmol/L Carbon Dioxide 24 (21-32) mmol/L Anion Gap 10 (3-11) BUN 13 (6-23) mg/dl Creatinine 0.93 (0.6-1.4) mg/dl Est Cr Clr Drug Dosing Not Reportable Est GFR ( Amer) 113.7 ml/min Est GFR (Non-Af Amer) 98.1 ml/min BUN/Creatinine Ratio 14.0 (10-20) Glucose 265 H (70-99(Fasting)) mg/dl Calcium 8.6 (8.6-10.3) mg/dl Magnesium 1.4 L (1.7-2.4) mg/dl Total Bilirubin 1.4 H (0.2-1.0) mg/dl AST 13 (13-39) U/L ALT 14 (7-52) U/L Alkaline Phosphatase 88 (34-104) U/L Troponin I High Sens 38.9 H Cancelled (0-20) pg/ml B-Natriuretic Peptide 1112 H (0-100) pg/ml Total Protein 7.7 (6.0-8.3) gm/dl Albumin 3.9 (3.4-5.0) gm/dl Globulin 3.8 (2.5-4.0) gm/dl Albumin/Globulin Ratio 1.0 (0.9-2) Imaging Data Attestation: I personally reviewed and interpreted this imaging study as follows: MDM Narrative Prior records/ancillary studies reviewed. Triage Nursing notes reviewed. Additional history obtained from the nursing. The patient's history was concerning for respiratory difficulties. Differential diagnosis: Etiologies such as infections, reactive airway disease, pneumonia, pneumothorax, COPD, CHF, cardiac ischemia, pulmonary embolism, musculoskeletal, gastrointestinal, as well as others were entertained. Physical examination: As above. ER treatment provided: An order was placed for continuous cardiac monitoring. The monitor shows a rate of 60-100 with a sinus rhythm per my interpretation. BiPAP, Lasix, magnesium On reassessment the patient felt better. Diagnostic interpretation by me: The electrocardiogram was ordered for SOB. ECG: Poor baseline, normal sinus, left axis, no acute ST-T wave changes, rate 124. Impression sinus tachycardia with left axis deviation independently interpreted by myself The labs Independently Interpreted by myself revealed elevated troponin and BNP consistent with patient's heart failure Low magnesium Imaging studies: Chest x-ray shows heart failure per my independent interpretation Consultation: A consultation was placed with the hospitalist. The case was discussed and diagnostics were reviewed. The patient was evaluated in the ER for further treatment. This appears to be consistent with acute on chronic heart failure. Patient came in on CPAP and was switched to BiPAP prior to me evaluating the patient. Stable labs. Medicine was consulted case discussed. He will be mated to the medical service.. By the evaluation outlined above emergent etiologies such as pulmonary embolism, reactive airway disease, pneumonia, pneumothorax, musculoskeletal, serious bacterial infections, as well as others were deemed relatively unlikely. The pt informed about the findings as listed above. All questions were answered and pleased with the treatment. The chart was completed utilizing [employer] Speech voice recognition software. Grammatical errors, random word insertions, pronoun errors, and incomplete sentences are an occassional consequence of this system due to software limitations, ambient noise, and hardware issues. Any formal questions or concerns about the content, text, or information contained within the body of this dictation should be directly addressed to the physician molding line assistant for clarification. Impression & Plan Acute congestive heart failure, Hypomagnesemia Discharge Plan Visit Data Chief Complaint: Shortness of Breath/Dyspnea Stated Complaint: SHORTNESS OF BREATH ED Provider: Cydney Barton ED Midlevel Provider: Sheridan Comer Discharge Problem: Acute congestive heart failure, Hypomagnesemia Patient Disposition: Admitted As Inpatient Condition: Fair Forms Stand Alone Forms: [facility] [employer] Simplist Prescriptions Prescriptions: No Action (DME) pen needle, diabetic [Comfort EZ Pen Colo] 31 gauge x 5/16" needle See Rx Instructions .Route Qty: 100 3RF Rx Instructions: use when administering insuling daily Entresto 97-103 mg tablet 1 tab PO BID Qty: 60 5RF metoprolol succinate 100 mg tablet extended release 24 hr 100 mg PO BID Qty: 60 5RF budesonide 0.25 mg/2 mL suspension for nebulization 0.25 mg inhalation DAILY PRN (Reason: Shortness Of Breath) budesonide-formoterol [Symbicort] 160-4.5 mcg/actuation HFA aerosol inhaler 2 inh inhalation BID Qty: 3 3RF Rx Instructions: 2 puffs twice per day. Rinse mouth after each use insulin glargine [Lantus Solostar U-100 Insulin] 100 unit/mL (3 mL) insulin pen 60 unit subcut HS 90 Days Qty: 60 1RF (DME) OneTouch Verio test strips Strip See Rx Instructions miscellaneous .MEDSUPPLY Qty: 100 5RF Rx Instructions: check 3x a day (DME) FreeStyle Karla 2 [place] Misc See Rx Instructions .Route Qty: 1 0RF Rx Instructions: for use with Karla 2 sensor (DME) FreeStyle Karla 2 Sensor Kit See Rx Instructions .Route Qty: 2 11RF Rx Instructions: change sensor every 14 days (DME) lancets [[employer] of [employer] Lounge EstablishmentsTouch Delica Plus Lancet] 30 gauge misc See Rx Instructions .ROUTE .MEDSUPPLY Qty: 100 5RF Rx Instructions: use new lancet 3x a day (DME) blood-glucose meter [OneTouch Verio Flex meter] Misc See Rx Instructions .ROUTE .MEDSUPPLY Qty: 1 0RF Rx Instructions: As directed atorvastatin 10 mg tablet 10 mg PO DAILY Qty: 90 3RF torsemide 100 mg tablet 100 mg PO BID Qty: 180 0RF Rx Instructions: 100 mg orally twice a day; isosorbide mononitrate 30 mg tablet extended release 24 hr 60 mg PO DAILY Qty: 90 0RF hydroxyzine HCl 25 mg tablet 25 mg PO TID PRN (Reason: itching) Qty: 90 1RF triamcinolone acetonide 0.025 % cream 1 applic topical TID PRN (Reason: rash) Qty: 454 0RF spironolactone [Aldactone] 25 mg tablet 25 mg PO BID Qty: 60 5RF (DME) FreeStyle Karla 3 Sensor Device See Rx Instructions .Route Qty: 2 3RF Rx Instructions: As directed, change every 14 days (DME) FreeStyle Karla 3 [place] Misc See Rx Instructions .Route Qty: 1 0RF Rx Instructions: As directed nitroglycerin [Nitrostat] 0.4 mg tablet, sublingual 0.4 mg sublingual UD PRN (Reason: Chest Pain) aspirin [Neisha Low Dose Aspirin] 81 mg tablet,delayed release (DR/EC) 81 mg PO QAM albuterol sulfate 2.5 mg /3 mL (0.083 %) solution for nebulization 2.5 mg inhalation Q6H PRN (Reason: Shortness Of Breath Or Wheezing) Rx Instructions: Use every 6 hours as needed with nebulizer nystatin 100,000 unit/gram powder 1 applic topical BID PRN (Reason: Skin Irritation) albuterol sulfate 90 mcg/actuation HFA aerosol inhaler 1 inh inhalation QID PRN (Reason: Shortness Of Breath Or Wheezing) Mounjaro 5 mg/0.5 mL pen injector 5 mg subcut WK (DME) Oxygen Home Liters Per Minute See Rx Instructions .Route Qty: 5 0RF Rx Instructions: As directed Referrals Referrals: Gosia Becker MD [Primary Care Provider] - Discharge Problem: Acute congestive heart failure Qualifiers: Heart failure type: unspecified Qualified Code(s): I50.9 - Heart failure, unspecified
[2023-10-12 00:35] LABS: Basophils # (auto) 0.02 K/uL (0.00-0.20); Basophils % (auto) 0.2 %; Eosinophils # (auto) 0.06 K/uL (0.00-0.50); Eosinophils % (auto) 0.5 %; Hematocrit (blood only) 46.3 % (42.0-52.0); Hemoglobin 15.7 g/dl (14.0-18.0); Immature Granulocytes # (auto) 0.06 K/uL (0.01-0.20); Immature Granulocytes % (auto) 0.5 %; Lymphocytes # (auto) 1.33 K/uL (1.20-3.40); Lymphocytes % (auto) 10.8 %; Mean Corpuscular Hemoglobin 29.3 pg (25.0-34.0); Mean Corpuscular Hgb Conc 33.9 g/dL (32.0-36.0); Mean Corpuscular Volume 86.4 fL (80.0-100.0); Mean Platelet Volume 10.6 fL (9.4-12.4); Monocytes # (auto) 0.76 K/uL (0.11-0.59); Monocytes % (auto) 6.2 %; Neutrophils # (auto) 10.07 K/uL (1.40-6.50); Neutrophils % (auto) 81.8 %; Platelet Count 161 K/uL (130-400); RDW Coefficient of Variation 14.8 % (11.5-14.5); RDW Standard Deviation 46.5 fL (36.4-46.3); Red Blood Count 5.36 M/uL (4.70-6.10)
[2023-10-12 00:43] LABS: Alanine Aminotransferase 14 U/L (7-52); Albumin Level 3.9 gm/dl (3.4-5.0); Alkaline Phosphatase 88 U/L (34-104); Anion Gap 10 (3-11); Aspartate Aminotransferase 13 U/L (13-39); Bilirubin,Total 1.4 mg/dl (0.2-1.0); Blood Urea Nitrogen 13 mg/dl (6-23); Calcium 8.6 mg/dl (8.6-10.3); Carbon Dioxide 24 mmol/L (21-32); Chloride 103 mmol/L (98-107); Est GFR (African American) 113.7 ml/min; Est GFR (Non-African American) 98.1 ml/min; Globulin 3.8 gm/dl (2.5-4.0); Glucose 265 mg/dl (70-99(Fasting)); Magnesium 1.4 mg/dl (1.7-2.4); Potassium 3.8 mmol/L (3.5-5.1); Sodium 137 mmol/L (136-145); Total Protein 7.7 gm/dl (6.0-8.3)
[2023-10-12 00:44] LABS: Base Excess VBG 3.1 mEq/L; HCO3 VBG 27 mmol/L; Oxygen Saturation VBG 93.3 %; PCO2 VBG 38 mmHg (38-50); PO2 VBG 66 mmHg; pH VBG 7.46 (7.36-7.41)
[2023-10-12 00:49] LABS: Troponin I High Sensitivity 38.9 pg/ml (0-20)
--- NOTE | 2023-10-12 01:28 | History & Physical Report ---
Date of Service October 12, 2023 Assessment & Plan (1) Acute and chronic respiratory failure with hypoxia: (2) Acute on chronic HFrEF (heart failure with reduced ejection fraction): (3) AICD (automatic cardioverter/defibrillator) present: (4) Type 2 diabetes mellitus with peripheral neuropathy: (5) Type 2 diabetes mellitus with obesity: (6) Obstructive sleep apnea: (7) Uncontrolled diabetes mellitus with hyperglycemia: (8) COPD (chronic obstructive pulmonary disease): (9) Hypertension: (10) V tach: Plan Acute on chronic respiratory failure with hypoxia/acute on chronic HFrEF/presence of AICD/history of V. tach- The patient will be admitted to telemetry for serial cardiac enzymes, serial EKG's, cardiac rhythm monitoring and a 2-D echocardiogram with Dopplers. Troponin 38.9 follow-up pending BNP 1112 Most recent echocardiogram on 04/06/2023, with ejection fraction 15-20% continue aspirin Continue aspirin, isosorbide mononitrate, metoprolol succinate, Entresto Hold torsemide [address] twice daily Place on furosemide 80 mg IV twice daily Increase spironolactone from 25 mg twice daily to 50 mg twice daily Follow serial chemistry profile and magnesium levels Placed on magnesium oxide 40 mg p.o. twice daily Hypomagnesemia- Magnesium 1.4 Receiving 2 g of magnesium sulfate IV and mag oxide 40 mg p.o. 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 Primary Care Provider: Gosia Becker MD The patient is a 47-year-old male with a past medical history including diabetes mellitus type 2 with peripheral neuropathy, MARIELENA, nonproliferative diabetic retinopathy bilaterally, COPD, nonischemic cardiomyopathy, status post AICD, hypertension, morbid obesity, urinary bladder incontinence, ambulatory dysfunction, history of V. tach, intellectual disability, history of medical noncompliance, and vitamin D deficiency. He presents to the emergency department with a few days of worsening shortness of breath despite taking her medications and other medications as directed. Patient was found to be significantly hypoxic, placed on BiPAP in the emergency department, given furosemide IV, and referred for evaluation [facility] Allergies Allergy/AdvReac Type Severity Reaction Status Date / Time albuterol Allergy Severe proair Verified 10/12/23 00:44 "trouble taking breaths" ceftriaxone Allergy Severe SHORTNESS Verified 10/12/23 00:44 OF BREATH lidocaine Allergy Severe SHORTNESS Verified 10/12/23 00:44 OF BREATH, diaphoretic, hives procaine Allergy Severe SHORTNESS Verified 10/12/23 00:44 OF BREATH, diaphoretic, hives amoxicillin Allergy Intermediate HIVES/FACIAL Verified 10/12/23 00:44 SWELLING clavulanic acid Allergy Intermediate HIVES/FACIAL Verified 10/12/23 00:44 SWELLING lisinopril Allergy Intermediate HIVES Verified 10/12/23 00:44 shellfish derived Allergy Unknown Unknown Verified 10/12/23 00:44 acetaminophen AdvReac Mild NAUSEA Verified 10/12/23 00:44 Fish Containing Products AdvReac Unknown Unknown Verified 10/12/23 00:44 Home Medications Medication Instructions Recorded Confirmed Type nitroglycerin 0.4 mg sublingual 0.4 mg sublingual UD PRN Chest Pain 04/24/19 10/12/23 History tablet (Nitrostat) metoprolol succinate 100 mg 100 mg PO BID #60 tabs 02/21/21 10/12/23 Rx tablet,extended release 24 hr sacubitril 97 mg-valsartan 103 mg 1 tab PO BID #60 tabs 02/21/21 10/12/23 Rx tablet (Entresto) aspirin 81 mg tablet,delayed 81 mg PO QAM 06/16/21 10/12/23 History release (Neisha Low Dose Aspirin) albuterol sulfate 2.5 mg/3 mL 2.5 mg inhalation Q6H PRN 12/02/21 10/12/23 History (0.083 %) solution for nebulization Shortness Of Breath Or Wheezing budesonide 0.25 mg/2 mL suspension 0.25 mg inhalation DAILY PRN 09/15/22 10/12/23 History for nebulization Shortness Of Breath blood-glucose meter (OneTouch #1 ea 10/12/22 09/03/23 Rx Verio Flex Meter) lancets 30 gauge (OneTouch Delica #100 ea 10/12/22 09/03/23 Rx Plus Lancet) Symbicort 160 mcg-4.5 2 inh inhalation BID #3 Inhalers 11/14/22 10/12/23 Rx mcg/actuation HFA aerosol inhaler (budesonide-formoterol) blood sugar diagnostic (OneTouch #100 ea 01/17/23 09/03/23 Rx Verio test strips) flash glucose scanning reader #1 ea 02/09/23 09/03/23 Rx (FreeStyle Karla 2 Disputanta) flash glucose sensor (FreeStyle #2 ea 02/09/23 09/03/23 Rx Karla 2 Sensor kit) pen needle, diabetic 31 gauge x #100 ea 02/16/23 09/03/23 Rx 5/16" (Comfort EZ Pen B[place]in) Oxygen Home #5 L 04/01/23 09/03/23 Rx spironolactone 25 mg tablet 25 mg PO BID #60 tabs 04/09/23 10/12/23 Rx (Aldactone) atorvastatin 10 mg tablet 10 mg PO DAILY #90 tabs 04/19/23 10/12/23 Rx torsemide 100 mg tablet 100 mg PO BID #180 tabs 04/19/23 10/12/23 Rx isosorbide mononitrate 30 mg 60 mg (2 x 30 mg) PO DAILY #90 tabs 05/14/23 10/12/23 Rx tablet,extended release 24 hr hydroxyzine HCl 25 mg tablet 25 mg PO TID PRN itching #90 tabs 05/31/23 10/12/23 Rx triamcinolone acetonide 0.025 % 1 applic topical TID PRN rash #454 05/31/23 10/12/23 Rx topical cream grams Lanrachelus Soltreear U-100 Insulin 100 60 unit (0.6 mL) subcut HS 90 days 06/19/23 10/12/23 Rx unit/mL (3 mL) subcutaneous pen #60 mL (insulin glargine) blood-glucose meter,continuous #1 ea 09/03/23 09/03/23 Rx (FreeStyle Karla 3 Disputanta) blood-glucose sensor (FreeStyle #2 ea 09/03/23 09/03/23 Rx Karla 3 Sensor device) albuterol sulfate 90 mcg/actuation 1 inh inhalation QID PRN Shortness 10/12/23 10/12/23 History aerosol inhaler Of Breath Or Wheezing nystatin 100,000 unit/gram topical 1 applic topical BID PRN Skin 10/12/23 10/12/23 History powder Irritation tirzepatide 5 mg/0.5 mL 5 mg subcut WK 10/12/23 10/12/23 History subcutaneous pen injector Past Med/Surg History Problem List (Updated 10/12/23 @ 02:39 by Noé Jaquez MD) Acute on chronic HFrEF (heart failure with reduced ejection fraction) Hypomagnesemia (Acute) Acute congestive heart failure (Acute) Type 2 diabetes mellitus with peripheral neuropathy Type 2 diabetes mellitus with obesity Obstructive sleep apnea Diabetic peripheral neuropathy Non-proliferative diabetic retinopathy, both eyes Uncontrolled diabetes mellitus with hyperglycemia COPD (chronic obstructive pulmonary disease) (Chronic) 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 Difficult to manage. Integrated into heart failure clinic. Frequent admissions for heart failure exacerbations. Echo (05/31) EF=25-30% with mod to severe global hypokinesis, basal kelsi-septal akinetic wall, LVH, RVSP elevated at 30-40mmHg, and mod dilated ascending aorta. Managed medically with ASA + BB + ARB/Neprilysin inh ibitor (Entresto) + high dose furosemide (160mg BID) + metolazone (3x weekly). Considering ICD given EF. NICM (nonischemic cardiomyopathy) (Acute) Pt admitted for elective ICD. Underwent procedure without any complications monitored over night and discharged home. Chronic respiratory failure AICD (automatic cardioverter/defibrillator) present Normocytic anemia Hypertension (Chronic) Poor intravenous access Morbid obesity with BMI of 50.0-59.9, adult Chronic anticoagulation Diabetes mellitus type II, uncontrolled (Chronic) Urinary bladder incontinence Hx of local infection of skin and subcutaneous tissue Ambulatory dysfunction (Chronic) Recurrent infection of skin Pulmonary nodule V tach (Acute) HFrEF (heart failure with reduced ejection fraction) Hemoptysis (Acute) Intellectual disability Medical non-compliance Vitamin D deficiency Medical History Respiratory failure Pulmonary edema Small bowel obstruction Housing instability, currently housed, at risk for homelessness Hearing loss of both ears Nonproliferative retinopathy due to secondary diabetes Dilatation of thoracic aorta Iliac aneurysm Vitamin D insufficiency Previously deficient, taking Vit D supplementation Umbilical hernia Lung nodule Fatty liver Surgical History H/O oral surgery History of carpal tunnel surgery S/P tonsillectomy History of cholecystectomy Family History Father , age 57 of an [place]. Heart disease Myocardial infarction Mother , age 67 of a ruptured neck vessel Sudden Other Depression Lung disease No pertinent family history Denies family history of Ovarian cancer Prostate cancer Breast cancer Colorectal cancer Social History Smoking Status: Former smoker Tobacco Type: Cigarettes Age Started Using Tobacco: 14; Age Quit Using Tobacco: 18; Cigarettes Per Day: 40; Second Hand Exposure: No; Do You Dip or Chew Tobacco: No; Hx Alcohol Use: No Hx Substance Use: No Preferred Language: Ivorian Communication Ability: Effective Visual Impairment: No Limitations Hearing Ability: Normal Cert Pharmacy Tech Required: No Beliefs That Will Affect Care: None marital status: Current Living Situation: Spouse Current Living Situation Comment: Lives at home with current occupational status: unemployed How many Children do You have: 0 Feels Safe at Home: Yes Childhood Exposure to Second-Hand Smoke: Yes Dental Care, Regularly: Yes Physical Activity Frequency: Does not Exercise Seatbelt Use: never Sunscreen Use: No Assistive Devices: Cane, Oxygen - Continuous and Walker Review of Systems Review of Systems: The patient denies palpitations, sore throat, fevers, chills, sweats, nausea, vomiting, diarrhea , constipation, abdominal pain, pelvic pain, blood in urine or stool, dysuria, urinary frequency or urgency, lightheadedness, dizziness, headache, memory loss, loss of consciousness, rash, abnormal bruising or bleeding, focal or generalized weakness, numbness or tingling in arms or legs, generalized arthralgias or myalgias, back or neck pain, or night sweats. The review of systems is otherwise negative other than for that already noted above, and at least 10 systems have been reviewed. Physical Exam Physical Exam: The patient is awake, alert and oriented 3, well developed and well nourished, normocephalic and atraumatic, lying in bed and in no acute distress. HEENT--PERRL, EOMI, mucous membranes and oropharynx normal Neck--supple. No JVD. No bruits. Thyroid normal, trachea midline, no adenopathy. Heart--normal S1 and S2. No murmurs, rubs or gallops. Lungs--crackles at the bases to group home up bilaterally. No respiratory distress on BiPAP. No accessory muscle use. Abdomen--normal bowel sounds and soft. Nontender. Nondistended, no hernias or masses, no organomegaly. Extremities-- 1+ bilateral pretibial pitting edema. Dermatologic--normal skin turgor, normal color, no abnormal lymph nodes, no rash. Neurologic--cranial nerves II through XII grossly intact. Rheumatologic--limited range of motion due to body habitus Psychiatric--normal affect. Results & Data Results & Data Vital Signs (Past 12 Hours) Vital Signs Temp Pulse Resp BP Pulse Ox O2 Del Method FiO2 10/12/23 01:06 104 H 30 H 92 10/12/23 00:30 146/109 H 10/12/23 00:30 146/109 H 10/12/23 00:30 146/109 H 10/12/23 00:30 146/109 H 10/12/23 00:30 108 H 22 146/109 H 96 BiPAP 10/12/23 00:14 123 H 30 H 97 40 10/12/23 00:05 122 H 10/11/23 23:35 36.9 C 110 H 22 148/113 H 96 CPAP Laboratory Results Laboratory Results WBC 12.30 K/ul (4.8-10.8) H 10/12/23 00:00 RBC 5.36 M/uL (4.70-6.10) 10/12/23 00:00 Hgb 15.7 g/dl (14.0-18.0) 10/12/23 00:00 Hct 46.3 % (42.0-52.0) 10/12/23 00:00 MCV 86.4 fL (80.0-100.0) 10/12/23 00:00 MCH 29.3 pg (25.0-34.0) 10/12/23 00:00 MCHC 33.9 g/dL (32.0-36.0) 10/12/23 00:00 RDW Std Deviation 46.5 fL (36.4-46.3) H 10/12/23 00:00 RDW Coeff of Zoltan 14.8 % (11.5-14.5) H 10/12/23 00:00 Plt Count 161 K/uL (130-400) 10/12/23 00:00 MPV 10.6 fL (9.4-12.4) 10/12/23 00:00 Immature Gran % (Auto) 0.5 % 10/12/23 00:00 Neut % (Auto) 81.8 % 10/12/23 00:00 Lymph % (Auto) 10.8 % 10/12/23 00:00 [place] % (Auto) 6.2 % 10/12/23 00:00 Eos % (Auto) 0.5 % 10/12/23 00:00 Baso % (Auto) 0.2 % 10/12/23 00:00 Neut # (Auto) 10.07 K/uL (1.40-6.50) H 10/12/23 00:00 Lymph # (Auto) 1.33 K/uL (1.20-3.40) 10/12/23 00:00 [place] # (Auto) 0.76 K/uL (0.11-0.59) H 10/12/23 00:00 Eos # (Auto) 0.06 K/uL (0.00-0.50) 10/12/23 00:00 Baso # (Auto) 0.02 K/uL (0.00-0.20) 10/12/23 00:00 Immature Gran # (Auto) 0.06 K/uL (0.01-0.20) 10/12/23 00:00 VBG pH 7.46 (7.36-7.41) H 10/12/23 00:32 VBG pCO2 38 mmHg (38-50) 10/12/23 00:32 VBG pO2 66 mmHg 10/12/23 00:32 VBG HCO3 27 mmol/L 10/12/23 00:32 VBG O2 Saturation 93.3 % 10/12/23 00:32 VBG Base Excess 3.1 mEq/L 10/12/23 00:32 Sodium 137 mmol/L (136-145) 10/12/23 00:00 Potassium 3.8 mmol/L (3.5-5.1) 10/12/23 00:00 Chloride 103 mmol/L (98-107) 10/12/23 00:00 Carbon Dioxide 24 mmol/L (21-32) 10/12/23 00:00 Anion Gap 10 (3-11) 10/12/23 00:00 BUN 13 mg/dl (6-23) 10/12/23 00:00 Creatinine 0.93 mg/dl (0.6-1.4) 10/12/23 00:00 Est Cr Clr Drug Dosing Not Reportable 10/12/23 00:00 Est GFR ( Amer) 113.7 ml/min 10/12/23 00:00 Est GFR (Non-Af Amer) 98.1 ml/min 10/12/23 00:00 BUN/Creatinine Ratio 14.0 (10-20) 10/12/23 00:00 Glucose 265 mg/dl (70-99(Fasting)) H 10/12/23 00:00 Calcium 8.6 mg/dl (8.6-10.3) 10/12/23 00:00 Magnesium 1.4 mg/dl (1.7-2.4) L 10/12/23 00:00 Total Bilirubin 1.4 mg/dl (0.2-1.0) H 10/12/23 00:00 AST 13 U/L (13-39) 10/12/23 00:00 ALT 14 U/L (7-52) 10/12/23 00:00 Alkaline Phosphatase 88 U/L (34-104) 10/12/23 00:00 Troponin I High Sens 38.9 pg/ml (0-20) H 10/12/23 00:00 Troponin I High Sens Cancelled 10/12/23 00:00 B-Natriuretic Peptide 1112 pg/ml (0-100) H 10/12/23 00:00 Total Protein 7.7 gm/dl (6.0-8.3) 10/12/23 00:00 Albumin 3.9 gm/dl (3.4-5.0) 10/12/23 00:00 Globulin 3.8 gm/dl (2.5-4.0) 10/12/23 00:00 Albumin/Globulin Ratio 1.0 (0.9-2) 10/12/23 00:00 Adenovirus (PCR) Not Detected (NotDetected) 10/12/23 00:30 B. pertussis DNA (PCR) Not Detected (NotDetected) 10/12/23 00:30 B.parapertussis DNA PCR Not Detected (NotDetected) 10/12/23 00:30 C. pneumoniae DNA (PCR) Not Detected (NotDetected) 10/12/23 00:30 Coronavirus OC43 (PCR) Not Detected (NotDetected) 10/12/23 00:30 Coronavirus HKU1 (PCR) Not Detected (NotDetected) 10/12/23 00:30 Coronavirus 229E (PCR) Not Detected (NotDetected) 10/12/23 00:30 SARS-CoV-2 (PCR) Not Detected (NotDetected) 10/12/23 00:30 Coronavirus NL63 (PCR) Not Detected (NotDetected) 10/12/23 00:30 Human Metapneumovir PCR Not Detected (NotDetected) 10/12/23 00:30 Influenza Type A (PCR) Not Detected (NotDetected) 10/12/23 00:30 Influenza Type B (PCR) Not Detected (NotDetected) 10/12/23 00:30 M. pneumoniae (PCR) Not Detected (NotDetected) 10/12/23 00:30 Parainfluenza 1 (PCR) Not Detected (NotDetected) 10/12/23 00:30 Parainfluenza 2 (PCR) Not Detected (NotDetected) 10/12/23 00:30 Parainfluenza 3 (PCR) Not Detected (NotDetected) 10/12/23 00:30 Parainfluenza 4 (PCR) Not Detected (NotDetected) 10/12/23 00:30 RSV (PCR) Not Detected (NotDetected) 10/12/23 00:30 Entero/Rhino (PCR) Not Detected (NotDetected) 10/12/23 00:30 Code Status & VTE Plan Code Status Full code VTE Prophylaxis Plan VTE Prophylaxis will be ordered: Yes PG Care Time/CCT Total # of Minutes Spent Total Time Spent with Patient: Total time spent is greater than 50% in coordination of care (as documented) at patient's floor/unit and/or counseling patient: Coding Level of Care Code 62873 INT INP/OBS CARE 3/75MIN Diagnoses Acute and chronic respiratory failure with hypoxia J96.21 Acute on chronic HFrEF (heart failure with reduced ejection fraction) I50.23 AICD (automatic cardioverter/defibrillator) present Z95.810 Type 2 diabetes mellitus with peripheral neuropathy E11.42 Type 2 diabetes mellitus with obesity E11.69; E66.9 Obstructive sleep apnea G47.33 Uncontrolled diabetes mellitus with hyperglycemia E11.65 Chronic obstructive pulmonary disease, unspecified COPD type J44.9 COPD type: unspecified COPD Hypertension I10 Hypertension type: unspecified V tach I47.2 (8) COPD (chronic obstructive pulmonary disease) COPD type: unspecified COPD Qualified Code(s): J44.9 - Chronic obstructive pulmonary disease, unspecified (9) Hypertension Hypertension type: unspecified Qualified Code(s): I10 - Essential (primary) hypertension
[2023-10-12] MEDS: FUROSEMIDE 40 MG/4 ML VIAL IV ONE ×2 (01:36)
[2023-10-12 01:37] LABS: Adenovirus PCR Not Detected (NotDetected); Bordetella parapertussis PCR Not Detected (NotDetected); Bordetella pertussis PCR Not Detected (NotDetected); Chlamydia pneumoniae PCR Not Detected (NotDetected); Coronavirus 229E PCR Not Detected (NotDetected); Coronavirus CoV-2 (COVID19)PCR Not Detected (NotDetected); Coronavirus HKU1 PCR Not Detected (NotDetected); Coronavirus NL63 PCR Not Detected (NotDetected); Coronavirus OC43PCR Not Detected (NotDetected); Human Metapneumovirus PCR Not Detected (NotDetected); Influenza A PCR Not Detected (NotDetected); Influenza B PCR Not Detected (NotDetected); Mycoplasma pneumoniae PCR Not Detected (NotDetected); Parainfluenza Virus 1 PCR Not Detected (NotDetected); Parainfluenza Virus 2 PCR Not Detected (NotDetected); Parainfluenza Virus 3 PCR Not Detected (NotDetected); Parainfluenza Virus 4 PCR Not Detected (NotDetected); Respiratory Syncytial VirusPCR Not Detected (NotDetected); Rhinovirus/Enterovirus PCR Not Detected (NotDetected)
[2023-10-12] MEDS: MAGNESIUM SULFATE / D5W 1 GM/100 ML BAG IV SCH ×2 (01:37→23:57)
[2023-10-12] MEDS ORDERED: ALBUTEROL HFA 8 GM INHALER INH PRN (01:55)
[2023-10-12] MEDS ORDERED: DEXTROSE 50% 50 ML SYRINGE IV PRN (01:55)
[2023-10-12] MEDS ORDERED: NITROGLYCERIN SL 0.4 MG/TAB TAB SL PRN (01:55)
[2023-10-12] MEDS ORDERED: GLUCAGON FOR INJ 1 MG VIAL SQ PRN (01:55)
[2023-10-12] MEDS ORDERED: CARBOHYDRATES FOR HYPOGLYCEMIA PO PRN (01:55)
[2023-10-12] MEDS ORDERED: GLUCOSE 10 TAB/TUBE PO PRN (01:55)
[2023-10-12] MEDS ORDERED: NYSTATIN POWDER 15GM BTL EXT PRN (01:55)
[2023-10-12] MEDS ORDERED: GLUCOSE 40% GEL 15 GM TUBE PO PRN (01:55)
[2023-10-12] MEDS ORDERED: hydrOXYzine HCl 25 MG TAB PO PRN (01:55)
--- NOTE | 2023-10-12 02:47 | Emergency Department Note ---
ED Visit Note I was consulted by the Advanced Practice Provider. I personally made/approved the management plan and take responsibility for the patient management. I performed a substantive portion of the visit. This includes the aspects of: Personally seeing the patient -MDM -I independently interpreted the following studies: portable chest [id number] with congestive heart failure .
[2023-10-12] MEDS: INSULIN ASPART PER UNIT CHARGE SC SCH (04:11)
--- NOTE | 2023-10-12 07:21 | XRay Report ---
XR chest 1V portable HISTORY: Dyspnea COMPARISON: Chest 05/09/2023. FINDINGS: No pneumothorax. The heart is enlarged. There is diffuse interstitial/vascular thickening c onsistent with pulmonary edema. This has progressed. There are trace bilateral pleural effusions sugg ested. Hazy bibasilar densities are also noted which is likely due to the pulmonary edema. Superimpos ed pneumonitis would be difficult to exclude. There is a left-sided single lead pacemaker/defibrillat or. IMPRESSION: 1. Cardiomegaly with pulmonary edema and trace bilateral pleural effusions. This has progressed in th e interval. 2. Hazy bibasilar densities likely represent a component of the pulmonary edema. A superimposed pneum onia would be difficult to exclude. ACT 112: Negative or not required by law. Electronically signed by: Andrea Bear M.D. 10/12/2023 7:20 AM
[2023-10-12] MEDS: MAGNESIUM OXIDE 400 MG TAB PO SCH (08:07)
[2023-10-12] MEDS: ISOSORBIDE MONO EXTENDED REL 60 MG TABCR PO SCH (08:07)
[2023-10-12] MEDS: SPIRONOLACTONE 25 MG TAB PO SCH (08:07)
[2023-10-12] MEDS: ATORVASTATIN 10 MG TAB PO SCH (08:08)
[2023-10-12] MEDS: METOPROLOL SUCC 50MG EXT REL TAB PO SCH (08:08)
[2023-10-12] MEDS: ASPIRIN 81 MG ECTAB PO SCH (08:08)
[2023-10-12] MEDS: HEPARIN SOD 5,000 UNIT/0.5 ML VIAL SQ SCH (08:09)
[2023-10-12] MEDS: FUROSEMIDE 40 MG/4 ML VIAL IV SCH (08:10)
[2023-10-12] MEDS: FLUTICASONE/VILANTEROL 100/25MCG 14 PUFFS/INHALER INH SCH (08:10)
[2023-10-12] MEDS: VALSARTAN/SACUBITRIL 103/97MG TAB PO SCH (08:11)
[2023-10-12 08:13] LABS: Estimated Average Glucose 186 mg/dl; Hemoglobin A1C 8.1 % (4.5-5.6)
[2023-10-12 21:38] LABS: Albumin Level 3.8 gm/dl (3.4-5.0); BUN Creatinine Ratio 15.5 (10-20); Bilirubin,Total 1.3 mg/dl (0.2-1.0); Calcium 8.3 mg/dl (8.6-10.3); Creatinine Clr Calc Pharmacy 101.2 ml/min; Est GFR (African American) 76.6 ml/min; Est GFR (Non-African American) 66.1 ml/min; Globulin 3.8 gm/dl (2.5-4.0); Magnesium 1.6 mg/dl (1.7-2.4); Potassium 3.7 mmol/L (3.5-5.1); Total Protein 7.6 gm/dl (6.0-8.3)
--- NOTE | 2023-10-12 22:02 | Electrocardiogram Report ---
Test Reason : Blood Pressure : */* mmHG Vent. Rate : 124 BPM Atrial Rate : 124 BPM P-R Int : 152 ms QRS Dur : 124 ms QT Int : 334 ms P-R-T Axes : 17 -37 85 degrees QTcB Int : 479 ms Sinus tachycardia Possible Left atrial enlargement Left axis deviation Minimal voltage criteria for LVH, may be normal variant Non-specific intra-ventricular conduction block Abnormal ECG When compared with ECG of 29-Mar-2023 19:16, Premature ventricular complexes are no longer Present Criteria for Septal infarct are no longer Present T wave inversion no longer evident in Lateral leads Confirmed by Abraham Rosen ([id number]) on 10/12/2023 10:01:45 PM Referred By: REFERRED SELF Confirmed By: Abraham Rosen
[2023-10-12] MEDS: LANTUS PER UNIT CHARGE SC SCH (22:18)
[2023-10-12] MEDS: POTASSIUM CHLORIDE CRTAB 20 MEQ TABCR PO STA (23:57)
[2023-10-13] MEDS: ACETAMINOPHEN 325 MG TAB PO PRN (03:54)
[2023-10-13] MEDS: COUGH DROP (SUGAR FREE) LOZ 24 LOZ/1 BOX BUCCAL PRN (03:54)
[2023-10-13] MEDS: ALBUTEROL 0.083% NEBU SOLN 3 ML VIAL INH PRN (04:13)
[2023-10-13 06:17] LABS: Calcium 8.5 mg/dl (8.6-10.3); Creatinine Clr Calc Pharmacy 123.2 ml/min; Est GFR (African American) 98.2 ml/min; Est GFR (Non-African American) 84.7 ml/min; Potassium 3.4 mmol/L (3.5-5.1)
--- NOTE | 2023-10-13 07:45 | Electrocardiogram Report ---
Test Reason : Blood Pressure : */* mmHG Vent. Rate : 86 BPM Atrial Rate : 86 BPM P-R Int : 168 ms QRS Dur : 114 ms QT Int : 368 ms P-R-T Axes : 39 -28 180 degrees QTcB Int : 441 ms Normal sinus rhythm Non-specific intra-ventricular conduction delay Nonspecific ST and T wave abnormality Abnormal ECG When compared with ECG of 11-Oct-2023 23:53, Incomplete left bundle block is now Present Confirmed by Bertrand Polanco ([id number]) on 10/13/2023 7:44:23 AM Referred By: REFERRED SELF Confirmed By: Bertrand Polanco
--- NOTE | 2023-10-13 10:41 | Hospitalist Progress Note ---
Date of Service October 13, 2023 Assessment & Plan (1) Acute and chronic respiratory failure with hypoxia: (2) Acute on chronic HFrEF (heart failure with reduced ejection fraction): (3) AICD (automatic cardioverter/defibrillator) present: (4) Type 2 diabetes mellitus with peripheral neuropathy: (5) Type 2 diabetes mellitus with obesity: (6) Obstructive sleep apnea: (7) Uncontrolled diabetes mellitus with hyperglycemia: (8) COPD (chronic obstructive pulmonary disease): (9) Hypertension: (10) V tach: Plan Patient carries a history of severe non ischemic cardiomyopathy Presents to the hospital with worsening SOB Acute on chronic respiratory failure with hypoxia/acute on chronic HFrEF/presence of AICD/history of V. tach- 2 D ECHO showed global hypokinesis, EF15-20%, similar to before Continue aspirin, isosorbide mononitrate, metoprolol succinate, Entresto Hold torsemide [address] twice daily Place on furosemide 80 mg IV twice daily Increase spironolactone from 25 mg twice daily to 50 mg twice daily Follow serial chemistry profile and magnesium levels Placed on magnesium oxide 40 mg p.o. twice daily Hypomagnesemia- Magnesium 1.4 on admission Received 2 g of magnesium sulfate IV and mag oxide 40 mg p.o. twice daily Repeat laboratories in a.m., targeting magnesium greater than or equal to 2 Diabetes mellitus- Continue Lantus 60 units subcu at bedtime Hold Mounjaro subcu weekly as outpatient Placed on Accu-Cheks with NovoLog SSI COPD- Continue albuterol sulfate, Symbicort Disposition- Patient reportedly has been kicked out of his apartment, and is presently living in a [facility] client services administrator to help address ongoing needs Admission and Anticipated Discharge Date Admission Date: October 12, 2023 Subjective patient seen and examined, no new complaints Review of Systems Review of Systems: All systems reviewed are negative, apart from the ones contained in the history. Physical Exam Physical Exam: The patient is awake, alert and oriented 3, well developed and well nourished, normocephalic and atraumatic, lying in bed and in no acute distress. HEENT--PERRL, EOMI, mucous membranes and oropharynx mildly dry Neck--supple. No JVD. No bruits. Thyroid normal, trachea midline, no adenopathy. Heart--normal S1 and S2. No murmurs, rubs or gallops. Lungs--clear bilaterally, no respiratory distress, no accessory muscle use. Abdomen--normal bowel sounds and soft. Extremities--no cyanosis or clubbing. No edema. Dermatologic--normal skin turgor, normal color, no abnormal lymph nodes, no rash. Neurologic--cranial nerves II through XII grossly intact. Rheumatologic--normal range of motion. Psychiatric--normal affect. Results & Data Results & Data Vital Signs (Past 12 Hours) Vital Signs Temp Pulse Pulse Pulse Resp BP Pulse Ox 10/13/23 09:00 10/13/23 08:32 77 10/13/23 07:31 97.3 F L 76 19 117/73 98 10/13/23 04:49 10/13/23 04:17 86 20 97 10/13/23 03:44 10/13/23 03:44 89 22 129/88 93 10/13/23 01:43 10/13/23 00:59 77 18 97 10/12/23 23:36 95 H Pulse Ox O2 Del Method O2 Del Method O2 Flow Rate O2 Flow Rate FiO2 10/13/23 09:00 Nasal Cannula 5 10/13/23 08:32 10/13/23 07:31 Nasal Cannula 5 10/13/23 04:49 High Flow Nasal Cannula 5 10/13/23 04:17 Nasal Cannula 7 10/13/23 03:44 High Flow Nasal Cannula 13 10/13/23 03:44 High Flow Nasal Cannula 15 10/13/23 01:43 95 High Flow Nasal Cannula 13 10/13/23 00:59 30 10/12/23 23:36 PG Care Time/CCT Total # of Minutes Spent Total Time Spent with Patient: Total time spent is greater than 50% in coordination of care (as documented) at patient's floor/unit and/or counseling patient: Coding Level of Care Code 05360 SUB INP/OBS CARE 2/35MIN Diagnoses Acute and chronic respiratory failure with hypoxia J96.21 Acute on chronic HFrEF (heart failure with reduced ejection fraction) I50.23 AICD (automatic cardioverter/defibrillator) present Z95.810 Type 2 diabetes mellitus with peripheral neuropathy E11.42 Type 2 diabetes mellitus with obesity E11.69; E66.9 Obstructive sleep apnea G47.33 Uncontrolled diabetes mellitus with hyperglycemia E11.65 Chronic obstructive pulmonary disease, unspecified COPD type J44.9 COPD type: unspecified COPD Hypertension I10 Hypertension type: unspecified V tach I47.2 Time Spent (min) 35 (8) COPD (chronic obstructive pulmonary disease) COPD type: unspecified COPD Qualified Code(s): J44.9 - Chronic obstructive pulmonary disease, unspecified (9) Hypertension Hypertension type: unspecified Qualified Code(s): I10 - Essential (primary) hypertension
[2023-10-13] MEDS: NAPROXEN 250 MG TAB PO STA (19:52)
[2023-10-14 07:02] LABS: BUN Creatinine Ratio 24.2 (10-20); Calcium 9.1 mg/dl (8.6-10.3); Creatinine Clr Calc Pharmacy 141.9 ml/min; Est GFR (African American) 116.7 ml/min; Est GFR (Non-African American) 100.7 ml/min; Potassium 3.8 mmol/L (3.5-5.1)
[2023-10-14 10:25] LABS: Magnesium 1.9 mg/dl (1.7-2.4)
--- NOTE | 2023-10-14 14:33 | Electrocardiogram Report ---
Test Reason : Blood Pressure : */* mmHG Vent. Rate : 83 BPM Atrial Rate : 83 BPM P-R Int : 168 ms QRS Dur : 112 ms QT Int : 408 ms P-R-T Axes : 5 -62 108 degrees QTcB Int : 479 ms Normal sinus rhythm Possible Left atrial enlargement Left axis deviation Non-specific intra-ventricular conduction delay Left ventricular hypertrophy Nonspecific ST and T wave abnormality Abnormal ECG When compared with ECG of 13-Oct-2023 05:48, No significant change was found Confirmed by Bertrand Polanco ([id number]) on 10/14/2023 2:33:02 PM Referred By: REFERRED SELF Confirmed By: Bertrand Polanco
--- NOTE | 2023-10-14 16:21 | Hospitalist Progress Note ---
Date of Service October 14, 2023 Assessment & Plan (1) Acute and chronic respiratory failure with hypoxia: (2) Acute on chronic HFrEF (heart failure with reduced ejection fraction): (3) AICD (automatic cardioverter/defibrillator) present: (4) Type 2 diabetes mellitus with peripheral neuropathy: (5) Type 2 diabetes mellitus with obesity: (6) Obstructive sleep apnea: (7) Uncontrolled diabetes mellitus with hyperglycemia: (8) COPD (chronic obstructive pulmonary disease): (9) Hypertension: (10) V tach: Plan Patient carries a history of severe non ischemic cardiomyopathy Presents to the hospital with worsening SOB Acute on chronic respiratory failure with hypoxia/acute on chronic HFrEF/presence of AICD/history of V. tach- 2 D ECHO showed global hypokinesis, EF15-20%, similar to before Continue aspirin, isosorbide mononitrate, metoprolol succinate, Entresto Hold torsemide 100 mg p.o. twice daily Continue furosemide 80 mg IV twice daily Increased spironolactone from 25 mg twice daily to 50 mg twice daily Follow serial chemistry profile and magnesium levels Placed on magnesium oxide 40 mg p.o. twice daily Hypomagnesemia- Magnesium 1.4 on admission. Today 1.9 on 10/13 Received 2 g of magnesium sulfate IV and mag oxide 40 mg p.o. twice daily Repeat laboratories in a.m., targeting magnesium greater than or equal to 2 Diabetes mellitus- Continue Lantus 60 units subcu at bedtime Hold Mounjaro subcu weekly as outpatient Placed on Accu-Cheks with NovoLog SSI COPD- Continue albuterol sulfate, Symbicort Disposition- Patient reportedly has been evicted out of his apartment, and is presently living in a nursing home services clerk to help address ongoing needs Admission and Anticipated Discharge Date Admission Date: October 12, 2023 Subjective Patient says he feels better overall. Denies chest pain. Breathing is improved. Leg swelling is improved. Review of Systems Review of Systems: All systems reviewed & are unremarkable except as noted in Subjective Physical Exam Physical Exam: General: Awake, conversant Heart: S1, S2/regular rate and rhythm, no murmur rubs or gallops Lungs: Diminished breath sounds bilaterally. Normal effort Abdomen: Soft/nontender/nondistended. No hepatosplenomegaly Extremities: No clubbing/cyanosis. No edema Behavior: Appropriate, cooperative Results & Data Results & Data Vital Signs (Past 12 Hours) Vital Signs Temp Pulse Pulse Resp BP Pulse Ox O2 Del Method 10/14/23 15:19 79 10/14/23 11:15 36.6 C 89 22 103/63 95 Nasal Cannula 10/14/23 08:30 36.6 C 88 20 129/78 99 Nasal Cannula 10/14/23 08:00 83 O2 Flow Rate 10/14/23 15:19 10/14/23 11:15 5 10/14/23 08:30 5 10/14/23 08:00 Laboratory Results Abnormal lab results 10/13/23 10/14/23 10/14/23 Range/Units 19:44 06:22 07:55 BUN/Creatinine Ratio 24.2 H (10-20) Glucose 172 H (70-99(Fasting)) mg/dl POC Glucose 241 H 146 H (70-99) mg/dl 10/14/23 Range/Units 12:10 BUN/Creatinine Ratio (10-20) Glucose (70-99(Fasting)) mg/dl POC Glucose 122 H (70-99) mg/dl PG Care Time/CCT Total # of Minutes Spent Total Time Spent with Patient: Total time spent is greater than 50% in coordination of care (as documented) at patient's floor/unit and/or counseling patient: Coding Level of Care Code 36452 SUB INP/OBS CARE 2/35MIN Diagnoses Acute and chronic respiratory failure with hypoxia J96.21 Acute on chronic HFrEF (heart failure with reduced ejection fraction) I50.23 AICD (automatic cardioverter/defibrillator) present Z95.810 Type 2 diabetes mellitus with peripheral neuropathy E11.42 Type 2 diabetes mellitus with obesity E11.69; E66.9 Obstructive sleep apnea G47.33 Uncontrolled diabetes mellitus with hyperglycemia E11.65 Chronic obstructive pulmonary disease, unspecified COPD type J44.9 COPD type: unspecified COPD Hypertension I10 Hypertension type: unspecified V tach I47.2 (8) COPD (chronic obstructive pulmonary disease) COPD type: unspecified COPD Qualified Code(s): J44.9 - Chronic obstructive pulmonary disease, unspecified (9) Hypertension Hypertension type: unspecified Qualified Code(s): I10 - Essential (primary) hypertension
[2023-10-15 09:07] LABS: Blood Urea Nitrogen 30 mg/dl (6-23); Calcium 9.2 mg/dl (8.6-10.3); Carbon Dioxide 34 mmol/L (21-32); Chloride 97 mmol/L (98-107); Creatinine Clr Calc Pharmacy 104.1 ml/min; Est GFR (African American) 79.5 ml/min; Est GFR (Non-African American) 68.6 ml/min; Glucose 149 mg/dl (70-99(Fasting))
[2023-10-15] MEDS: MAGNESIUM SULFATE / D5W 1 GM/100 ML BAG IV SCH (10:17)
[2023-10-15 10:19] LABS: Magnesium 1.9 mg/dl (1.7-2.4); Potassium 3.7 mmol/L (3.5-5.1)
--- NOTE | 2023-10-15 14:51 | Hospitalist Progress Note ---
Date of Service October 15, 2023 Assessment & Plan (1) Acute and chronic respiratory failure with hypoxia: (2) Acute on chronic HFrEF (heart failure with reduced ejection fraction): (3) AICD (automatic cardioverter/defibrillator) present: (4) Type 2 diabetes mellitus with peripheral neuropathy: (5) Type 2 diabetes mellitus with obesity: (6) Obstructive sleep apnea: (7) Uncontrolled diabetes mellitus with hyperglycemia: (8) COPD (chronic obstructive pulmonary disease): (9) Hypertension: (10) V tach: Plan Patient carries a history of severe non ischemic cardiomyopathy Presents to the hospital with worsening SOB Acute on chronic respiratory failure with hypoxia/acute on chronic HFrEF/presence of AICD/history of V. tach- 2 D ECHO showed global hypokinesis, EF15-20%, similar to before Continue aspirin, isosorbide mononitrate, metoprolol succinate, Entresto Home dose of torsemide 100 mg p.o. twice daily held Patient was being treated with furosemide 80 mg IV twice daily Noted decreasing urine output and rising creatinine Hold further IV Lasix Follow BMP to decide on the next steps Continue increased dose of Aldactone 50 mg twice daily Follow serial chemistry profile and magnesium levels Placed on magnesium oxide 40 mg p.o. twice daily Nonsustained V. tach Patient has a history of V. tach EF of 15% Potassium of 3.7, magnesium of 1.9 Continue to replete magnesium and potassium with goal of K> 4 and mag > 2 Hypomagnesemia- Magnesium 1.4 on admission. Today 1.9 on 10/13 Received 2 g of magnesium sulfate IV and mag oxide 40 mg p.o. twice daily Repeat laboratories in a.m., targeting magnesium greater than or equal to 2 Diabetes mellitus- Continue Lantus 60 units subcu at bedtime Hold Mounjaro subcu weekly as outpatient Placed on Accu-Cheks with NovoLog SSI COPD- Continue albuterol sulfate, Symbicort Disposition- Patient reportedly has been evicted out of his apartment, and is presently living in a halfway account services associate to help address ongoing needs Admission and Anticipated Discharge Date Admission Date: October 12, 2023 Subjective Patient feels well overall. Denies chest pain or shortness of breath. 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 Review of Systems Review of Systems: All systems reviewed & are unremarkable except as noted in Subjective Physical Exam Physical Exam: General: Awake, conversant Heart: S1, S2/regular rate and rhythm, no murmur rubs or gallops Lungs: Diminished breath sounds bilaterally. Normal effort Abdomen: Soft/nontender/nondistended. No hepatosplenomegaly Extremities: No clubbing/cyanosis. No edema Behavior: Appropriate, cooperative Results & Data Results & Data Vital Signs (Past 12 Hours) Vital Signs Temp Pulse Pulse Resp BP Pulse Ox Pulse Ox 10/15/23 11:24 36.4 C L 80 20 98 10/15/23 10:00 10/15/23 07:44 36.3 C L 78 20 104/62 95 10/15/23 03:20 95 10/15/23 03:04 85 20 95 10/15/23 03:01 36.5 C 77 17 87/57 L 93 O2 Del Method O2 Del Method O2 Flow Rate FiO2 10/15/23 11:24 Nasal Cannula 5 10/15/23 10:00 Nasal Cannula 5 10/15/23 07:44 Nasal Cannula 4 10/15/23 03:20 CPAP 10/15/23 03:04 30 10/15/23 03:01 CPAP Laboratory Results Abnormal lab results 10/14/23 10/14/23 10/15/23 Range/Units 16:45 20:59 07:43 Sodium (136-145) mmol/L Chloride (98-107) mmol/L Carbon Dioxide (21-32) mmol/L BUN (6-23) mg/dl BUN/Creatinine Ratio (10-20) Glucose (70-99(Fasting)) mg/dl POC Glucose 145 H 173 H 132 H (70-99) mg/dl 10/15/23 10/15/23 10/15/23 Range/Units 08:29 09:40 11:28 Sodium 135 L (136-145) mmol/L Chloride 97 L (98-107) mmol/L Carbon Dioxide 34 H (21-32) mmol/L BUN 30 H (6-23) mg/dl BUN/Creatinine Ratio 24.0 H (10-20) Glucose 149 H (70-99(Fasting)) mg/dl POC Glucose 138 H (70-99) mg/dl PG Care Time/CCT Total # of Minutes Spent Total Time Spent with Patient: Total time spent is greater than 50% in coordination of care (as documented) at patient's floor/unit and/or counseling patient: Coding Level of Care Code 69666 SUB INP/OBS CARE 235MIN Diagnoses Acute and chronic respiratory failure with hypoxia J96.21 Acute on chronic HFrEF (heart failure with reduced ejection fraction) I50.23 AICD (automatic cardioverter/defibrillator) present Z95.810 Type 2 diabetes mellitus with peripheral neuropathy E11.42 Type 2 diabetes mellitus with obesity E11.69; E66.9 Obstructive sleep apnea G47.33 Uncontrolled diabetes mellitus with hyperglycemia E11.65 Chronic obstructive pulmonary disease, unspecified COPD type J44.9 COPD type: unspecified COPD Hypertension I10 Hypertension type: unspecified V tach I47.2 (8) COPD (chronic obstructive pulmonary disease) COPD type: unspecified COPD Qualified Code(s): J44.9 - Chronic obstructive pulmonary disease, unspecified (9) Hypertension Hypertension type: unspecified Qualified Code(s): I10 - Essential (primary) hypertension
[2023-10-15] MEDS: POTASSIUM CHLORIDE / WTR 10 MEQ/100 ML PLCT IV SCH (16:22)
[2023-10-16 07:01] LABS: BUN Creatinine Ratio 27.9 (10-20); Calcium 8.6 mg/dl (8.6-10.3); Creatinine Clr Calc Pharmacy 107.1 ml/min; Est GFR (African American) 81.9 ml/min; Est GFR (Non-African American) 70.7 ml/min; Potassium 4.2 mmol/L (3.5-5.1)
[2023-10-16] MEDS: TORSEMIDE 100 MG TAB PO SCH (09:33)
--- NOTE | 2023-10-16 16:09 | Hospitalist Progress Note ---
Date of Service October 16, 2023 Assessment & Plan (1) Acute and chronic respiratory failure with hypoxia: (2) Acute on chronic HFrEF (heart failure with reduced ejection fraction): (3) AICD (automatic cardioverter/defibrillator) present: (4) Type 2 diabetes mellitus with peripheral neuropathy: (5) Type 2 diabetes mellitus with obesity: (6) Obstructive sleep apnea: (7) Uncontrolled diabetes mellitus with hyperglycemia: (8) COPD (chronic obstructive pulmonary disease): (9) Hypertension: (10) V tach: Plan Patient carries a history of severe non ischemic cardiomyopathy Presents to the hospital with worsening SOB Acute on chronic respiratory failure with hypoxia/acute on chronic HFrEF/presence of AICD/history of V. tach- 2 D ECHO showed global hypokinesis, EF15-20%, similar to before Continue aspirin, isosorbide mononitrate, metoprolol succinate, Entresto Home dose of torsemide 100 mg p.o. twice daily held Patient was being treated with furosemide 80 mg IV twice daily Noted decreasing urine output and rising creatinine Hold further IV Lasix and switch to torsemide 100 mg p.o. twice daily home dose Continue increased dose of Aldactone 50 mg twice daily Follow serial chemistry profile and magnesium levels Placed on magnesium oxide 40 mg p.o. twice daily Nonsustained V. tach Patient has a history of V. tach EF of 15% Potassium of 3.7, magnesium of 1.9 Continue to replete magnesium and potassium with goal of K> 4 and mag > 2 Hypomagnesemia- Magnesium 1.4 on admission. Today 1.9 on 10/13 Received 2 g of magnesium sulfate IV and mag oxide 40 mg p.o. twice daily Repeat laboratories in a.m., targeting magnesium greater than or equal to 2 Diabetes mellitus- Continue Lantus 60 units subcu at bedtime Hold Mounjaro subcu weekly as outpatient Placed on Accu-Cheks with NovoLog SSI COPD- Continue albuterol sulfate, Symbicort Disposition- Patient to go back to halfway Likely discharge tomorrow provided renal function stable Patient has an appointment with social work program coordinator at 1130 for which he will need to be out of the hospital at 9 AM. Plan to discharge on time. Admission and Anticipated Discharge Date Admission Date: October 12, 2023 Subjective Patient feels well today. Denies chest pain or shortness of breath. 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 Review of Systems Review of Systems: All systems reviewed & are unremarkable except as noted in Subjective Physical Exam Physical Exam: General: Awake, conversant Heart: S1, S2/regular rate and rhythm, no murmur rubs or gallops Lungs: Diminished breath sounds bilaterally. Normal effort Abdomen: Soft/nontender/nondistended. No hepatosplenomegaly Extremities: No clubbing/cyanosis. No edema Behavior: Appropriate, cooperative Results & Data Results & Data Vital Signs (Past 12 Hours) Vital Signs Temp Pulse Resp BP Pulse Ox O2 Del Method O2 Flow Rate 10/16/23 15:58 36.8 C 76 20 94/60 L 100 Nasal Cannula 6 10/16/23 11:28 36.5 C 79 20 105/68 99 Nasal Cannula 6 10/16/23 10:40 Nasal Cannula 5 10/16/23 07:48 36.2 C L 68 20 123/72 99 Nasal Cannula 6 Laboratory Results Abnormal lab results 10/15/23 10/15/23 10/16/23 Range/Units 16:51 20:32 05:21 Carbon Dioxide 33 H (21-32) mmol/L BUN 34 H (6-23) mg/dl BUN/Creatinine Ratio 27.9 H (10-20) Glucose 132 H (70-99(Fasting)) mg/dl POC Glucose 106 H 138 H (70-99) mg/dl 10/16/23 10/16/23 Range/Units 07:50 11:27 Carbon Dioxide (21-32) mmol/L BUN (6-23) mg/dl BUN/Creatinine Ratio (10-20) Glucose (70-99(Fasting)) mg/dl POC Glucose 123 H 160 H (70-99) mg/dl PG Care Time/CCT Total # of Minutes Spent Total Time Spent with Patient: Total time spent is greater than 50% in coordination of care (as documented) at patient's floor/unit and/or counseling patient: Coding Level of Care Code 04236 SUB INP/OBS CARE 2/35MIN Diagnoses Acute and chronic respiratory failure with hypoxia J96.21 Acute on chronic HFrEF (heart failure with reduced ejection fraction) I50.23 AICD (automatic cardioverter/defibrillator) present Z95.810 Type 2 diabetes mellitus with peripheral neuropathy E11.42 Type 2 diabetes mellitus with obesity E11.69; E66.9 Obstructive sleep apnea G47.33 Uncontrolled diabetes mellitus with hyperglycemia E11.65 Chronic obstructive pulmonary disease, unspecified COPD type J44.9 COPD type: unspecified COPD Hypertension I10 Hypertension type: unspecified V tach I47.2 (8) COPD (chronic obstructive pulmonary disease) COPD type: unspecified COPD Qualified Code(s): J44.9 - Chronic obstructive pulmonary disease, unspecified (9) Hypertension Hypertension type: unspecified Qualified Code(s): I10 - Essential (primary) hypertension
[2023-10-16 19:59] VITALS: RESP 19
[2023-10-17 06:40] LABS: BUN Creatinine Ratio 29.1 (10-20); Calcium 8.4 mg/dl (8.6-10.3); Creatinine Clr Calc Pharmacy 101.6 ml/min; Est GFR (Non-African American) 67.3 ml/min; Potassium 4.1 mmol/L (3.5-5.1)
--- NOTE | 2023-10-17 07:33 | Discharge Summary ---
Date of Service October 17, 2023 Admission HPI Per Admitting Provider The patient is a 47-year-old male with a past medical history including diabetes mellitus type 2 with peripheral neuropathy, MARIELENA, nonproliferative diabetic retinopathy bilaterally, COPD, nonischemic cardiomyopathy, status post AICD, hypertension, morbid obesity, urinary bladder incontinence, ambulatory dysfunction, history of V. tach, intellectual disability, history of medical noncompliance, and vitamin D deficiency. He presents to the emergency department with a few days of worsening shortness of breath despite taking her medications and other medications as directed. Patient was found to be significantly hypoxic, placed on BiPAP in the emergency department, given furosemide IV, and [facility] Exam Per Admitting Provider The patient is awake, alert and oriented 3, well developed and well nourished, normocephalic and atraumatic, lying in bed and in no acute distress. HEENT--PERRL, EOMI, mucous membranes and oropharynx normal Neck--supple. No JVD. No bruits. Thyroid normal, trachea midline, no adenopathy. Heart--normal S1 and S2. No murmurs, rubs or gallops. Lungs--crackles at the bases to intermediate up bilaterally. No respiratory distress on BiPAP. No accessory muscle use. Abdomen--normal bowel sounds and soft. Nontender. Nondistended, no hernias or masses, no organomegaly. Extremities-- 1+ bilateral pretibial pitting edema. Dermatologic--normal skin turgor, normal color, no abnormal lymph nodes, no rash. Neurologic--cranial nerves II through XII grossly intact. Rheumatologic--limited range of motion due to body habitus Psychiatric--normal affect. Principal Diagnosis Acute on chronic hypoxic respiratory failure Acute on chronic congestive heart failure EF 15% severe nonischemic cardiomyopathy AICD Severe nonischemic cardiomyopathy status post AICD Nonsustained V. tach Hypomagnesemia Discharge Exam General: Awake, conversant Heart: S1, S2/regular rate and rhythm, no murmur rubs or gallops Lungs: Diminished breath sounds bilaterally. Normal effort Abdomen: Soft/nontender/nondistended. No hepatosplenomegaly Extremities: No clubbing/cyanosis. No edema Behavior: Appropriate, cooperative Discharge Data Allergies Allergy/AdvReac Type Severity Reaction Status Date / Time albuterol Allergy Severe proair Verified 10/12/23 00:44 "trouble taking breaths" ceftriaxone Allergy Severe SHORTNESS Verified 10/12/23 00:44 OF BREATH lidocaine Allergy Severe SHORTNESS Verified 10/12/23 00:44 OF BREATH, diaphoretic, hives procaine Allergy Severe SHORTNESS Verified 10/12/23 00:44 OF BREATH, diaphoretic, hives amoxicillin Allergy Intermediate HIVES/FACIAL Verified 10/12/23 00:44 SWELLING clavulanic acid Allergy Intermediate HIVES/FACIAL Verified 10/12/23 00:44 SWELLING lisinopril Allergy Intermediate HIVES Verified 10/12/23 00:44 shellfish derived Allergy Unknown Unknown Verified 10/12/23 00:44 acetaminophen AdvReac Mild NAUSEA Verified 10/12/23 00:44 Fish Containing Products AdvReac Unknown Unknown Verified 10/12/23 00:44 Consultations 10/12/23 01:15 ED Decision to Admit Stat Hospital Course (1) Acute and chronic respiratory failure with hypoxia: (2) Acute on chronic HFrEF (heart failure with reduced ejection fraction): (3) AICD (automatic cardioverter/defibrillator) present: (4) Type 2 diabetes mellitus with peripheral neuropathy: (5) Type 2 diabetes mellitus with obesity: (6) Obstructive sleep apnea: (7) Uncontrolled diabetes mellitus with hyperglycemia: (8) COPD (chronic obstructive pulmonary disease): (9) Hypertension: (10) V tach: Plan Patient carries a history of severe non ischemic cardiomyopathy Presents to the hospital with worsening SOB Acute on chronic respiratory failure with hypoxia/acute on chronic HFrEF/presence of AICD/history of V. tach- 2 D ECHO showed global hypokinesis, EF15-20%, similar to before Continue aspirin, isosorbide mononitrate, metoprolol succinate, Entresto Home dose of torsemide 100 mg p.o. twice daily held Patient was being treated with furosemide 80 mg IV twice daily Noted decreasing urine output and rising creatinine Switched from IV Lasix to torsemide 100 mg p.o. twice daily home dose Continue increased dose of Aldactone 50 mg twice daily Placed on magnesium oxide 40 mg p.o. twice daily Patient is clinically improved Doing well on his home dose of p.o. torsemide He is deemed stable for discharge However on the day of discharge, his ride did not bring his oxygen tank. Instruction was for his ride to go home and bring his oxygen for the ride. And if that could not be achieved, he would have to leave AGAINST MEDICAL ADVICE. However the patient had already left without the oxygen. He is on 5 L of oxygen chronically and has been using 5 L here. I have asked the nurse to follow report. Nonsustained V. tach Patient has a history of V. tach EF of 15% Potassium of 3.7, magnesium of 1.9 Continue to replete magnesium and potassium with goal of K> 4 and mag > 2 Hypomagnesemia- Magnesium 1.4 on admission. Today 1.9 on 10/13 Received IV magnesium and mag oxide 40 mg p.o. twice daily Discharge on p.o. magnesium Diabetes mellitus- Continue Lantus 60 units subcu at bedtime Hold Mounjaro subcu weekly as outpatient Placed on Accu-Cheks with NovoLog SSI COPD- Continue albuterol sulfate, Symbicort Discharge today. Total Time Total Time Spent Total Time Spent (In Minutes): 35 Discharge Plan Discharge Items Patient Disposition: Home - Self-Care Reason For Visit: CHF EXACERBATION, ACUTE ON CHRONIC RESP FAILURE Discharge Diagnosis: Acute on chronic hypoxic respiratory failure Acute on chronic congestive heart failure EF 15% severe nonischemic cardiomyopathy AICD Severe nonischemic cardiomyopathy status post AICD Nonsustained V. tach Hypomagnesemia Condition on Discharge: Fair Activity: Resume your previous activity Non-emergency contact: Primary Care Provider Call non-emergency contact if: you have any medication questions and your symptoms worsen Follow-up/Referrals: Gosia Becker MD [Primary Care Provider] - Diet: Carb Consistent or DM2 and Low Sodium (2gm) Addtl Attending Provider Instructions: Advised to follow-up with PCP in 1 week Pending Studies at Discharge: No Stand-Alone Forms: [facility] AIM Medications and DC Order Prescriptions: New spironolactone 25 mg Tablet 50 mg PO BID 30 Days Qty: 120 0RF magnesium oxide 400 mg (241.3 mg magnesium) Tablet 400 mg PO BID 30 Days Qty: 60 0RF Continued (DME) pen needle, diabetic [Comfort EZ Pen [place]] 31 gauge x 5/16" needle See Rx Instructions .Route Qty: 100 3RF Rx Instructions: use when administering insuling daily Entresto 97-103 mg tablet 1 tab PO BID Qty: 60 5RF metoprolol succinate 100 mg tablet extended release 24 hr 100 mg PO BID Qty: 60 5RF budesonide 0.25 mg/2 mL suspension for nebulization 0.25 mg inhalation DAILY PRN (Reason: Shortness Of Breath) budesonide-formoterol [Symbicort] 160-4.5 mcg/actuation HFA aerosol inhaler 2 inh inhalation BID Qty: 3 3RF Rx Instructions: 2 puffs twice per day. Rinse mouth after each use insulin glargine [Lantus Solostar U-100 Insulin] 100 unit/mL (3 mL) insulin pen 60 unit subcut HS 90 Days Qty: 60 1RF (DME) OneTouch Verio test strips Strip See Rx Instructions miscellaneous .MEDSUPPLY Qty: 100 5RF Rx Instructions: check 3x a day (DME) FreeStyle Karla 2 Sterling Misc See Rx Instructions .Route Qty: 1 0RF Rx Instructions: for use with Karla 2 sensor (DME) FreeStyle Karla 2 Sensor Kit See Rx Instructions .Route Qty: 2 11RF Rx Instructions: change sensor every 14 days (DME) lancets [OneTouch Delica Plus Lancet] 30 gauge misc See Rx Instructions .ROUTE .MEDSUPPLY Qty: 100 5RF Rx Instructions: use new lancet 3x a day (DME) blood-glucose meter [OneTouch Verio Flex meter] Misc See Rx Instructions .ROUTE .MEDSUPPLY Qty: 1 0RF Rx Instructions: As directed atorvastatin 10 mg tablet 10 mg PO DAILY Qty: 90 3RF torsemide 100 mg tablet 100 mg PO BID Qty: 180 0RF Rx Instructions: 100 mg orally twice a day; isosorbide mononitrate 30 mg tablet extended release 24 hr 60 mg PO DAILY Qty: 90 0RF hydroxyzine HCl 25 mg tablet 25 mg PO TID PRN (Reason: itching) Qty: 90 1RF triamcinolone acetonide 0.025 % cream 1 applic topical TID PRN (Reason: rash) Qty: 454 0RF (DME) FreeStyle Karla 3 Sensor Device See Rx Instructions .Route Qty: 2 3RF Rx Instructions: As directed, change every 14 days (DME) FreeStyle Karla 3 Sterling Misc See Rx Instructions .Route Qty: 1 0RF Rx Instructions: As directed nitroglycerin [Nitrostat] 0.4 mg tablet, sublingual 0.4 mg sublingual UD PRN (Reason: Chest Pain) aspirin [Neisha Low Dose Aspirin] 81 mg tablet,delayed release (DR/EC) 81 mg PO QAM albuterol sulfate 2.5 mg /3 mL (0.083 %) solution for nebulization 2.5 mg inhalation Q6H PRN (Reason: Shortness Of Breath Or Wheezing) Rx Instructions: Use every 6 hours as needed with nebulizer nystatin 100,000 unit/gram powder 1 applic topical BID PRN (Reason: Skin Irritation) albuterol sulfate 90 mcg/actuation HFA aerosol inhaler 1 inh inhalation QID PRN (Reason: Shortness Of Breath Or Wheezing) tirzepatide 5 mg/0.5 mL pen injector 5 mg subcut WK (DME) Oxygen Home Liters Per Minute See Rx Instructions .Route Qty: 5 0RF Rx Instructions: As directed Discontinued spironolactone [Aldactone] 25 mg tablet 25 mg PO BID Qty: 60 5RF Discharge Orders: Discharge Order (Routine); Ordered 10/17/23 Ordered By: Iain Talamantes/Other Patient Handouts: Managing Type 2 Diabetes Admission Data Admit Date/Time: 10/12/23 01:27 Attending Provider: Iain Kenney Admit Provider: Noé Jaquez Primary Care Provider: Gosia Becker Other Providers: Noé Jaquez Other Interventions: Discharge Summary Assessment (RN) Last Done: 10/17/23 07:32
[2023-10-17 07:59] VITALS: BP 115/76; TEMP 98.1; O2SAT 98
[2023-10-17 09:00] VITALS: PULSE 72
== END 2023-10-17 10:37 | disposition home or self-care (01) | DRG 291 ==
LOC: ED 23:42 → SUATTDRO 10-12 01:27 → EDINP 10-12 01:27 → 4W 10-12 01:56

== ENCOUNTER 2023-11-03 20:18 | Inpatient (IN) ==
[2023-11-03] MEDS: ALBUT/IPRATROP 3MG/0.5MG NEB 3 ML VIAL NEB STA (20:40)
--- NOTE | 2023-11-03 20:42 | Emergency Department Note ---
Impression & Plan Pulmonary edema, Respiratory failure ED Provider Note NAME: HARDIK LOVE AGE: 47 SEX: M : 1975 ARRIVES VIA: Ambulance INFORMANT: Patient, ED PROVIDER(S): Rodney Hilton DO CHIEF COMPLAINT: Difficulty breathing HPI: The patient is a 47-year-old male who has a history of heart failure and obstructive sleep apnea who presented to the emergency department for an evaluation of difficulty breathing. The patient has a breathing machine at home. He is been using his nebulizers. Over the last 3 days he has been noticing worsening shortness of breath. The patient was having severe tachypnea as well as reported hypoxia by the prehospital personnel. He was placed on BiPAP upon arrival to the emergency department. The patient states he has been having a productive cough. He denies having any leg swelling worse than usual. He does complain of some orthopnea. The patient denies having a fever. ROS: See above HPI for pertinent positives & negatives. A total of 10 systems reviewed and were otherwise negative. PAST MEDICAL HISTORY: See Below PAST SURGICAL HISTORY: See Below FAMILY HISTORY: See Below SOCIAL HISTORY: See Below HOME MEDICATIONS: See Below ALLERGIES: See Below VITALS: See Below PHYSICAL EXAMINATION: GENERAL: The patient is awake and alert. The patient is somewhat anxious appearing. EYES: The conjunctivae are clear. The pupils are round and reactive. EARS, NOSE, MOUTH AND THROAT: The nose is without any evidence of any deformity. NECK: The neck is nontender and supple. RESPIRATORY: Diminished breath sounds are noted throughout. Tachypnea as well as conversational dyspnea is appreciated. CARDIOVASCULAR: Regular rate and rhythm noted there no murmurs rubs or gallops normal S1 normal S2. GASTROINTESTINAL: The abdomen is soft. Abdomen is nontender. MUSCULOSKELETAL/EXTREMITIES: There is no evidence of gross deformity full range of motion is noted in the hips and shoulders. SKIN: Pedal edema is noted bilaterally. NEUROLOGIC: Patient is awake alert and oriented 3. MEDICAL DECISION MAKING: The patient is a 47-year-old male who presented to the emergency department by ambulance for an evaluation of difficulty breathing. The patient has a history of similar episodes in the past with congestive heart failure but also has a history of obstructive sleep apnea. The patient also has been experiencing problems with a dental infection. The patient was treated with BiPAP in the emergency department. He was placed on supplemental oxygen. He received bronchodilator therapy as well as IV antibiotics for the dental infection. The patient was somewhat improved on reevaluation. I discussed patient's laboratory and radiographic studies with him. I discussed the patient's condition with the on-call [facility] Hospitalist. They have agreed to evaluate the patient in the emergency department for further management and disposition. Triage Nursing notes reviewed. Prior medical records reviewed Vital Signs: reviewed and remarkable for tachypnea and tachycardia. Differential diagnosis: Reactive airway disease, pneumonia, pneumothorax, COPD, CHF, infections, cardiac ischemia, pulmonary embolism, musculoskeletal, gastrointestinal, as well as other pathologies. ER treatment provided: See below Diagnostics interpreted by me: ECG: EKG was obtained in the emergency department. My interpretation is sinus tachycardia at 117 bpm. There was no ectopy. LVH was noted by voltage criteria. Incomplete left bundle branch block pattern was noted. Nonspecific ST segment depressions were noted. This was compared to a tracing from October 14, 2023. No changes were noted. Cardiac Monitoring: An order was placed for continuous cardiac monitoring. The monitor shows a rate of 114 bpm with sinus tachycardia. Laboratory studies: As stated above and show below. Imaging studies: See below. Radiographic imaging was reviewed by myself Consultation(s): I discussed this case with Dr. Arredondo who is on-call for the [facility]ist group. ED COURSE: Procedures: none Critical Care: I have personally spent greater than 45 minutes of critical care time in the direct management of this patient. This includes bedside care, interpretation of diagnostic studies, and testing, discussion with consultants, patient, and family members, and other required patient management activities. This 45 minutes is in excess of all separately billable procedures. 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 Difficult to manage. Integrated into heart failure clinic. Frequent admissions for heart failure exacerbations. Echo (05/31) EF=25-30% with mod to severe global hypokinesis, basal kelsi-septal akinetic wall, LVH, RVSP elevated at 30-40mmHg, and mod dilated ascending aorta. Managed medically with ASA + BB + ARB/Neprilysin inhibitor (Entresto) + high dose furosemide (160mg BID) + metolazone (3x weekly). Considering ICD given EF. NICM (nonischemic cardiomyopathy) (Acute) Pt admitted for elective ICD. Underwent procedure without any complications monitored over night and discharged home. Chronic respiratory failure AICD (automatic cardioverter/defibrillator) present Normocytic anemia Hypertension (Chronic) Poor intravenous access Morbid obesity with BMI of 50.0-59.9, adult Chronic anticoagulation Diabetes mellitus type II, uncontrolled (Chronic) Urinary bladder incontinence Hx of local infection of skin and subcutaneous tissue Ambulatory dysfunction (Chronic) Recurrent infection of skin Pulmonary nodule V tach (Acute) HFrEF (heart failure with reduced ejection fraction) Hemoptysis (Acute) Intellectual disability Medical non-compliance Vitamin D deficiency Medical History Respiratory failure Pulmonary edema Small bowel obstruction Housing instability, currently housed, at risk for homelessness Hearing loss of both ears Nonproliferative retinopathy due to secondary diabetes Dilatation of thoracic aorta Iliac aneurysm Vitamin D insufficiency Previously deficient, taking Vit D supplementation Umbilical hernia Lung nodule Fatty liver Surgical History H/O oral surgery History of carpal tunnel surgery S/P tonsillectomy History of cholecystectomy Family History Father , age 57 of an [place]. Heart disease Myocardial infarction Mother , age 67 of a ruptured neck vessel Sudden Other Depression Lung disease No pertinent family history Denies family history of Ovarian cancer Prostate cancer Breast cancer Colorectal cancer Social History Smoking Status: Unknown if ever smoked Tobacco Type: Cigarettes Age Started Using Tobacco: 14; Age Quit Using Tobacco: 18; Cigarettes Per Day: 40; Second Hand Exposure: No; Do You Dip or Chew Tobacco: No; Hx Alcohol Use: No Hx Substance Use: No Preferred Language: Upper Sorbian Communication Ability: Effective Visual Impairment: No Limitations Hearing Ability: Normal 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 Machine Setter Required: No Beliefs That Will Affect Care: None marital status: Current Living Situation: Homeless Current Living Situation Comment: Lives at home with current occupational status: unemployed How many Children do You have: 0 Feels Safe at Home: Yes Childhood Exposure to Second-Hand Smoke: Yes Dental Care, Regularly: Yes Physical Activity Frequency: Does not Exercise Seatbelt Use: never Sunscreen Use: No Assistive Devices: Cane, Oxygen - Continuous, Scooter/Electric Scooter and Walker Allergies Allergies Allergy/AdvReac Type Severity Reaction Status Date / Time albuterol Allergy Severe proair Verified 10/12/23 00:44 "trouble taking breaths" ceftriaxone Allergy Severe SHORTNESS Verified 10/12/23 00:44 OF BREATH lidocaine Allergy Severe SHORTNESS Verified 10/12/23 00:44 OF BREATH, diaphoretic, hives procaine Allergy Severe SHORTNESS Verified 10/12/23 00:44 OF BREATH, diaphoretic, hives amoxicillin Allergy Intermediate HIVES/FACIAL Verified 10/12/23 00:44 SWELLING clavulanic acid Allergy Intermediate HIVES/FACIAL Verified 10/12/23 00:44 SWELLING lisinopril Allergy Intermediate HIVES Verified 10/12/23 00:44 shellfish derived Allergy Unknown Unknown Verified 10/12/23 00:44 acetaminophen AdvReac Mild NAUSEA Verified 10/12/23 00:44 Fish Containing Products AdvReac Unknown Unknown Verified 10/12/23 00:44 Home Meds Home Medications Medication Instructions Recorded Confirmed nitroglycerin 0.4 mg sublingual 0.4 mg sublingual UD PRN Chest Pain 04/24/19 10/19/23 tablet (Nitrostat) aspirin 81 mg tablet,delayed 81 mg PO QAM 06/16/21 10/19/23 release (Neisha Low Dose Aspirin) albuterol sulfate 2.5 mg/3 mL 2.5 mg inhalation Q6H PRN 12/02/21 10/19/23 (0.083 %) solution for nebulization Shortness Of Breath Or Wheezing budesonide 0.25 mg/2 mL suspension 0.25 mg inhalation DAILY PRN 09/15/22 10/19/23 for nebulization Shortness Of Breath albuterol sulfate 90 mcg/actuation 1 inh inhalation QID PRN Shortness 10/12/23 10/19/23 aerosol inhaler Of Breath Or Wheezing nystatin 100,000 unit/gram topical 1 applic topical BID PRN Skin 10/12/23 10/19/23 powder Irritation Previous Rx's Medication Instructions Recorded metoprolol succinate 100 mg 100 mg PO BID #60 tabs 02/21/21 tablet,extended release 24 hr sacubitril 97 mg-valsartan 103 mg 1 tab PO BID #60 tabs 02/21/21 tablet (Entresto) blood-glucose meter (OneTouch #1 ea 10/12/22 Verio Flex Meter) lancets 30 gauge (OneTouch Delica #100 ea 10/12/22 Plus Lancet) Symbicort 160 mcg-4.5 2 inh inhalation BID #3 Inhalers 11/14/22 mcg/actuation HFA aerosol inhaler (budesonide-formoterol) blood sugar diagnostic (OneTouch #100 ea 01/17/23 Verio test strips) flash glucose scanning reader #1 ea 02/09/23 (FreeStyle Karla 2 Bartley) flash glucose sensor (FreeStyle #2 ea 02/09/23 Karla 2 Sensor kit) pen needle, diabetic 31 gauge x #100 ea 02/16/23 5/16" (Comfort EZ Pen Leonard) Oxygen Home #5 L 04/01/23 atorvastatin 10 mg tablet 10 mg PO DAILY #90 tabs 04/19/23 torsemide 100 mg tablet 100 mg PO BID #180 tabs 04/19/23 isosorbide mononitrate 30 mg 60 mg (2 x 30 mg) PO DAILY #90 tabs 05/14/23 tablet,extended release 24 hr hydroxyzine HCl 25 mg tablet 25 mg PO TID PRN itching #90 tabs 05/31/23 triamcinolone acetonide 0.025 % 1 applic topical TID PRN rash #454 05/31/23 topical cream grams Lantus Solostar U-100 Insulin 100 60 unit (0.6 mL) subcut HS 90 days 06/19/23 unit/mL (3 mL) subcutaneous pen #60 mL (insulin glargine) blood-glucose meter,continuous #1 ea 09/03/23 (FreeStyle Karla 3 Bartley) blood-glucose sensor (FreeStyle #2 ea 09/03/23 Karla 3 Sensor device) magnesium oxide 400 mg (241.3 mg 400 mg PO BID 1 month #60 tabs 10/17/23 magnesium) tablet spironolactone 25 mg tablet 50 mg (2 x 25 mg) PO BID 1 month 10/17/23 #120 tabs tirzepatide 5 mg/0.5 mL 5 mg (0.5 mL) subcut WK #2 mL 11/01/23 subcutaneous pen injector Results & Data (ED) Vital Signs Vital Signs - 24 hr 11/03/23 20:15 11/03/23 20:40 11/03/23 20:40 Pulse Rate 120 H 118 H Pulse Rate [Right Finger] 118 H Pulse Rhythm Regular Pulse Rhythm [Right Finger] Pulse Strength Normal Pulse Strength [Right Finger] Respiratory Rate 20 27 H 27 H Respiratory Effort / Characteristics Short of Breath Spontaneous Labored Short of Breath Spontaneous Labored Short of Breath Respiratory Depth Shallow Respiratory Pattern Tachypnea Tachypnea Blood Pressure 168/136 H Blood Pressure [Left Arm] Blood Pressure Mean 146 Blood Pressure Mean [Left Arm] Blood Pressure Position Sitting Blood Pressure Position [Left Arm] Pulse Oximetry 98 97 97 Oxygen Delivery Method CPAP BiPAP Fraction of Inspired Oxygen 50 50 Sepsis Recent Fever Within 48 Hours No Sepsis New/Unexplained Change in Mental Status N/A Sepsis Action Taken by Nursing No Action Required 11/03/23 21:04 11/03/23 22:06 11/03/23 22:06 Pulse Rate Pulse Rate [Right Finger] 116 H Pulse Rhythm Pulse Rhythm [Right Finger] Regular Pulse Strength Pulse Strength [Right Finger] Normal Respiratory Rate 22 Respiratory Effort / Characteristics Short of Breath Respiratory Depth Shallow Shallow Respiratory Pattern Tachypnea Regular Blood Pressure Blood Pressure [Left Arm] 166/116 H Blood Pressure Mean Blood Pressure Mean [Left Arm] 132 Blood Pressure Position Blood Pressure Position [Left Arm] Lying Pulse Oximetry 98 95 Oxygen Delivery Method BiPAP CPAP Fraction of Inspired Oxygen Sepsis Recent Fever Within 48 Hours Sepsis New/Unexplained Change in Mental Status Sepsis Action Taken by Nursing 11/03/23 22:06 Pulse Rate 104 H Pulse Rate [Right Finger] Pulse Rhythm Regular Pulse Rhythm [Right Finger] Pulse Strength Pulse Strength [Right Finger] Respiratory Rate 22 Respiratory Effort / Characteristics Respiratory Depth Respiratory Pattern Blood Pressure Blood Pressure [Left Arm] Blood Pressure Mean Blood Pressure Mean [Left Arm] Blood Pressure Position Blood Pressure Position [Left Arm] Pulse Oximetry 98 Oxygen Delivery Method CPAP Fraction of Inspired Oxygen Sepsis Recent Fever Within 48 Hours Sepsis New/Unexplained Change in Mental Status Sepsis Action Taken by Longterm Medications Current Medication List: was personally reviewed by me Laboratory Data Attestation: I reviewed the patient's lab results. 11/03/23 20:40 11/03/23 20:40 Lab Results 11/03/23 11/03/23 Range/Units 20:40 21:00 WBC 9.56 (4.8-10.8) K/ul RBC 5.38 (4.70-6.10) M/uL Hgb 15.8 (14.0-18.0) g/dl Hct 45.8 (42.0-52.0) % MCV 85.1 (80.0-100.0) fL MCH 29.4 (25.0-34.0) pg MCHC 34.5 (32.0-36.0) g/dL RDW Std Deviation 44.7 (36.4-46.3) fL RDW Coeff of Zoltan 14.6 H (11.5-14.5) % Plt Count 144 (130-400) K/uL MPV 10.7 (9.4-12.4) fL Immature Gran % (Auto) 0.6 % Neut % (Auto) 69.5 % Lymph % (Auto) 21.1 % Borden % (Auto) 6.8 % Eos % (Auto) 1.7 % Baso % (Auto) 0.3 % Neut # (Auto) 6.64 H (1.40-6.50) K/uL Lymph # (Auto) 2.02 (1.20-3.40) K/uL Borden # (Auto) 0.65 H (0.11-0.59) K/uL Eos # (Auto) 0.16 (0.00-0.50) K/uL Baso # (Auto) 0.03 (0.00-0.20) K/uL Immature Gran # (Auto) 0.06 (0.01-0.20) K/uL PT 11.0 (9.0-12.0) Seconds INR 1.0 (0.9-1.1) APTT 30 (21-31) Seconds PTT Ratio 1.1 VBG pH 7.39 (7.36-7.41) VBG pCO2 42 (38-50) mmHg VBG pO2 56 mmHg VBG HCO3 25 mmol/L VBG O2 Saturation 88.2 % VBG Base Excess 0.3 mEq/L Sodium 138 (136-145) mmol/L Potassium 4.1 (3.5-5.1) mmol/L Chloride 105 (98-107) mmol/L Carbon Dioxide 24 (21-32) mmol/L Anion Gap 9 (3-11) BUN 15 (6-23) mg/dl Creatinine 1.00 (0.6-1.4) mg/dl Est Cr Clr Drug Dosing 147.4 ml/min Est GFR ( Amer) 104.1 ml/min Est GFR (Non-Af Amer) 89.9 ml/min BUN/Creatinine Ratio 15.0 (10-20) Glucose 220 H (70-99(Fasting)) mg/dl Calcium 8.9 (8.6-10.3) mg/dl Magnesium 1.7 (1.7-2.4) mg/dl Total Bilirubin 1.1 H (0.2-1.0) mg/dl AST 18 (13-39) U/L ALT 14 (7-52) U/L Alkaline Phosphatase 98 (34-104) U/L Troponin I High Sens 25.1 H (0-20) pg/ml B-Natriuretic Peptide 1023 H (0-100) pg/ml Total Protein 7.8 (6.0-8.3) gm/dl Albumin 4.1 (3.4-5.0) gm/dl Globulin 3.7 (2.5-4.0) gm/dl Albumin/Globulin Ratio 1.1 (0.9-2) Adenovirus (PCR) Not Detected (NotDetected) B. pertussis DNA (PCR) Not Detected (NotDetected) B.parapertussis DNA PCR Not Detected (NotDetected) C. pneumoniae DNA (PCR) Not Detected (NotDetected) Coronavirus OC43 (PCR) Not Detected (NotDetected) Coronavirus HKU1 (PCR) Not Detected (NotDetected) Coronavirus 229E (PCR) Not Detected (NotDetected) SARS-CoV-2 (PCR) Not Detected (NotDetected) Coronavirus NL63 (PCR) Not Detected (NotDetected) Human Metapneumovir PCR Not Detected (NotDetected) Influenza Type A (PCR) Not Detected (NotDetected) Influenza Type B (PCR) Not Detected (NotDetected) M. pneumoniae (PCR) Not Detected (NotDetected) Parainfluenza 1 (PCR) Not Detected (NotDetected) Parainfluenza 2 (PCR) Not Detected (NotDetected) Parainfluenza 3 (PCR) Not Detected (NotDetected) Parainfluenza 4 (PCR) Not Detected (NotDetected) RSV (PCR) Not Detected (NotDetected) Entero/Rhino (PCR) Not Detected (NotDetected) Administered Medications Discontinued Medications Albuterol (Albut/Ipratrop 3mg/0.5mg Neb 3 Ml Vial) 3 ml NEB NOW STA; Protocol Stop: 11/03/23 20:36 Last Admin: 11/03/23 20:40 Dose: 3 ml Documented By: JACQUELYN Furosemide (Furosemide 40 Mg/4 Ml Vial) 40 mg IV ONE ONE Stop: 11/03/23 21:51 Last Admin: 11/03/23 22:04 Dose: 40 mg Documented By: ALEXANDRIA Imaging Data Attestation: I personally reviewed and interpreted this imaging study as follows: My Impression: 1 view chest x-ray was obtained in the emergency department. My interpretation is cardiomegaly with pulmonary vascular congestion, final report pending. Discharge Plan Visit Data Chief Complaint: Shortness of Breath/Dyspnea Stated Complaint: SOB ED Provider: Rodney Hilton Discharge Problem: Pulmonary edema, Respiratory failure Patient Disposition: Being Evaluated by Hospitalist Forms Stand Alone Forms: My [facility] Prescriptions Prescriptions: No Action tirzepatide 5 mg/0.5 mL pen injector 5 mg subcut WK Qty: 2 1RF (DME) pen needle, diabetic [Comfort EZ Pen Leonard] 31 gauge x 5/16" needle See Rx Instructions .Route Qty: 100 3RF Rx Instructions: use when administering insuling daily Entresto 97-103 mg tablet 1 tab PO BID Qty: 60 5RF metoprolol succinate 100 mg tablet extended release 24 hr 100 mg PO BID Qty: 60 5RF budesonide 0.25 mg/2 mL suspension for nebulization 0.25 mg inhalation DAILY PRN (Reason: Shortness Of Breath) budesonide-formoterol [Symbicort] 160-4.5 mcg/actuation HFA aerosol inhaler 2 inh inhalation BID Qty: 3 3RF Rx Instructions: 2 puffs twice per day. Rinse mouth after each use insulin glargine [Lantus Solostar U-100 Insulin] 100 unit/mL (3 mL) insulin pen 60 unit subcut HS 90 Days Qty: 60 1RF (DME) OneTouch Verio test strips Strip See Rx Instructions miscellaneous .MEDSUPPLY Qty: 100 5RF Rx Instructions: check 3x a day (DME) FreeStyle Karla 2 Bartley Misc See Rx Instructions .Route Qty: 1 0RF Rx Instructions: for use with Karla 2 sensor (DME) FreeStyle Karla 2 Sensor Kit See Rx Instructions .Route Qty: 2 11RF Rx Instructions: change sensor every 14 days (DME) lancets [[employer] Delica Plus Lancet] 30 gauge misc See Rx Instructions .ROUTE .MEDSUPPLY Qty: 100 5RF Rx Instructions: use new lancet 3x a day (DME) blood-glucose meter [[employer]Touch Verio Flex meter] Misc See Rx Instructions .ROUTE .MEDSUPPLY Qty: 1 0RF Rx Instructions: As directed atorvastatin 10 mg tablet 10 mg PO DAILY Qty: 90 3RF torsemide 100 mg tablet 100 mg PO BID Qty: 180 0RF Rx Instructions: 100 mg orally twice a day; isosorbide mononitrate 30 mg tablet extended release 24 hr 60 mg PO DAILY Qty: 90 0RF hydroxyzine HCl 25 mg tablet 25 mg PO TID PRN (Reason: itching) Qty: 90 1RF triamcinolone acetonide 0.025 % cream 1 applic topical TID PRN (Reason: rash) Qty: 454 0RF (DME) FreeStyle Karla 3 Sensor Device See Rx Instructions .Route Qty: 2 3RF Rx Instructions: As directed, change every 14 days (DME) FreeStyle Karla 3 Bartley Misc See Rx Instructions .Route Qty: 1 0RF Rx Instructions: As directed nitroglycerin [Nitrostat] 0.4 mg tablet, sublingual 0.4 mg sublingual UD PRN (Reason: Chest Pain) aspirin [Neisha Low Dose Aspirin] 81 mg tablet,delayed release (DR/EC) 81 mg PO QAM albuterol sulfate 2.5 mg /3 mL (0.083 %) solution for nebulization 2.5 mg inhalation Q6H PRN (Reason: Shortness Of Breath Or Wheezing) Rx Instructions: Use every 6 hours as needed with nebulizer nystatin 100,000 unit/gram powder 1 applic topical BID PRN (Reason: Skin Irritation) albuterol sulfate 90 mcg/actuation HFA aerosol inhaler 1 inh inhalation QID PRN (Reason: Shortness Of Breath Or Wheezing) spironolactone 25 mg Tablet 50 mg PO BID 30 Days Qty: 120 0RF magnesium oxide 400 mg (241.3 mg magnesium) Tablet 400 mg PO BID 30 Days Qty: 60 0RF (DME) Oxygen Home Liters Per Minute See Rx Instructions .Route Qty: 5 0RF Rx Instructions: As directed Referrals Referrals: Gosia Becker MD [Primary Care Provider] - Discharge Problem: Pulmonary edema Qualifiers: Chronicity: acute Qualified Code(s): J81.0 - Acute pulmonary edema Respiratory failure Qualifiers: Chronicity: acute on chronic Respiratory failure complication: hypoxia Q ualified Code(s): J96.21 - Acute and chronic respiratory failure with hypoxia
[2023-11-03 21:09] LABS: Base Excess VBG 0.3 mEq/L; HCO3 VBG 25 mmol/L; Oxygen Saturation VBG 88.2 %; PCO2 VBG 42 mmHg (38-50); PO2 VBG 56 mmHg; pH VBG 7.39 (7.36-7.41)
[2023-11-03 21:12] LABS: Albumin Globulin Ratio 1.1 (0.9-2); Albumin Level 4.1 gm/dl (3.4-5.0); Bilirubin,Total 1.1 mg/dl (0.2-1.0); Calcium 8.9 mg/dl (8.6-10.3); Creatinine Clr Calc Pharmacy 147.4 ml/min; Est GFR (African American) 104.1 ml/min; Est GFR (Non-African American) 89.9 ml/min; Globulin 3.7 gm/dl (2.5-4.0); Magnesium 1.7 mg/dl (1.7-2.4); Potassium 4.1 mmol/L (3.5-5.1); Total Protein 7.8 gm/dl (6.0-8.3)
[2023-11-03 21:16] LABS: Troponin I High Sensitivity 25.1 pg/ml (0-20)
[2023-11-03 21:30] LABS: Basophils # (auto) 0.03 K/uL (0.00-0.20); Basophils % (auto) 0.3 %; Eosinophils # (auto) 0.16 K/uL (0.00-0.50); Eosinophils % (auto) 1.7 %; Hematocrit (blood only) 45.8 % (42.0-52.0); Hemoglobin 15.8 g/dl (14.0-18.0); Immature Granulocytes # (auto) 0.06 K/uL (0.01-0.20); Immature Granulocytes % (auto) 0.6 %; Lymphocytes # (auto) 2.02 K/uL (1.20-3.40); Lymphocytes % (auto) 21.1 %; Mean Corpuscular Hemoglobin 29.4 pg (25.0-34.0); Mean Corpuscular Hgb Conc 34.5 g/dL (32.0-36.0); Mean Corpuscular Volume 85.1 fL (80.0-100.0); Mean Platelet Volume 10.7 fL (9.4-12.4); Monocytes # (auto) 0.65 K/uL (0.11-0.59); Monocytes % (auto) 6.8 %; Neutrophils # (auto) 6.64 K/uL (1.40-6.50); Neutrophils % (auto) 69.5 %; Platelet Count 144 K/uL (130-400); RDW Coefficient of Variation 14.6 % (11.5-14.5); RDW Standard Deviation 44.7 fL (36.4-46.3); Red Blood Count 5.38 M/uL (4.70-6.10); White Blood Count 9.56 K/ul (4.8-10.8)
[2023-11-03 21:34] LABS: Partial Thromboplastin Ratio 1.1; Partial Thromboplastin Time 30 Seconds (21-31)
[2023-11-03] MEDS: FUROSEMIDE 40 MG/4 ML VIAL IV ONE (22:04)
[2023-11-03 22:06] LABS: Adenovirus PCR Not Detected (NotDetected); Bordetella parapertussis PCR Not Detected (NotDetected); Bordetella pertussis PCR Not Detected (NotDetected); Chlamydia pneumoniae PCR Not Detected (NotDetected); Coronavirus 229E PCR Not Detected (NotDetected); Coronavirus CoV-2 (COVID19)PCR Not Detected (NotDetected); Coronavirus HKU1 PCR Not Detected (NotDetected); Coronavirus NL63 PCR Not Detected (NotDetected); Coronavirus OC43PCR Not Detected (NotDetected); Human Metapneumovirus PCR Not Detected (NotDetected); Influenza A PCR Not Detected (NotDetected); Influenza B PCR Not Detected (NotDetected); Mycoplasma pneumoniae PCR Not Detected (NotDetected); Parainfluenza Virus 1 PCR Not Detected (NotDetected); Parainfluenza Virus 2 PCR Not Detected (NotDetected); Parainfluenza Virus 3 PCR Not Detected (NotDetected); Parainfluenza Virus 4 PCR Not Detected (NotDetected); Respiratory Syncytial VirusPCR Not Detected (NotDetected); Rhinovirus/Enterovirus PCR Not Detected (NotDetected)
--- NOTE | 2023-11-03 22:28 | History & Physical Report ---
Date of Service November 03, 2023 Assessment & Plan (1) Acute on chronic respiratory failure with hypoxemia: (2) Acute on chronic HFrEF (heart failure with reduced ejection fraction): (3) Periapical abscess: (4) NICM (nonischemic cardiomyopathy): (5) AICD (automatic cardioverter/defibrillator) present: (6) Type 2 diabetes mellitus with obesity: (7) Obstructive sleep apnea: (8) COPD (chronic obstructive pulmonary disease): (9) Hypertension: Plan Acute on chronic respiratory failure with hypoxia/acute on chronic HFrEF/COPD exacerbation- The patient will be admitted to telemetry for serial cardiac enzymes, serial EKG's, cardiac rhythm monitoring Given furosemide 80 mg IV in the ED, and will continue 80 mg IV twice daily Continue BiPAP, taper to mask/nasal cannula as symptoms improve Continue aspirin 81 mg every morning, isosorbide mononitrate 60 mg daily, spironolactone 50 mg p.o. twice daily mag oxide 400 mg p.o. twice daily, metoprolol succinate 100 mg twice daily, Entresto 97-103 twice daily Hold torsemide Daily CBC with differential, renal function panel and magnesium level COPD exacerbation- Continue Pulmicort Respules Duonebs every 4 hours while awake and every 2 hours when necessary. [employer] testing negative Ertapenem and clindamycin IV as below Multiple dental caries/periapical abscess around tooth #20- Significant reaction to cephalosporins and amoxicillin Ertapenem 1 g IV every 24 hours Clindamycin 600 mg IV every [address] Doll Diabetes mellitus- Hold tirzepatide Continue glargine Placed on Accu-Cheks with NovoLog SSI History of Present Illness Chief Complaint: The patient is brought to the emergency department via ambulance, due to an acute worsening of his chronic shortness of breath over the past 3 days. Primary Care Provider: Gosia Becker MD The patient is a 47-year-old male with a past medical history including chronic HFrEF, chronic respiratory failure, diabetes mellitus type 2, peripheral neuropathy, morbid obesity, MARIELENA, COPD, nonischemic cardiomyopathy, presence of AICD, hypertension, morbid obesity, history of V. tach, intellectual disability, medical noncompliance. He presents to the emergency department with 3 days of worsening shortness of breath. He denies any recent travels or sick exposures. He reports that he has been taking his medications as directed. Upon arrival to the emergency department he was placed on BiPAP, as he usually requires upon arrival, and reports feeling some improvement in breathing. Allergies Allergy/AdvReac Type Severity Reaction Status Date / Time albuterol Allergy Severe proair Verified 11/03/23 23:44 "trouble taking breaths" ceftriaxone Allergy Severe SHORTNESS Verified 11/03/23 23:44 OF BREATH lidocaine Allergy Severe SHORTNESS Verified 11/03/23 23:44 OF BREATH, diaphoretic, hives mushroom Allergy Severe Anaphylaxis Unverified 11/03/23 23:45 procaine Allergy Severe SHORTNESS Verified 11/03/23 23:44 OF BREATH, diaphoretic, hives amoxicillin Allergy Intermediate HIVES/FACIAL Verified 11/03/23 23:44 SWELLING clavulanic acid Allergy Intermediate HIVES/FACIAL Verified 11/03/23 23:44 SWELLING lisinopril Allergy Intermediate HIVES Verified 11/03/23 23:44 shellfish derived Allergy Unknown Unknown Verified 11/03/23 23:44 acetaminophen AdvReac Mild NAUSEA Verified 11/03/23 23:44 Fish Containing Products AdvReac Unknown Unknown Verified 11/03/23 23:44 Home Medications Medication Instructions Recorded Confirmed Type nitroglycerin 0.4 mg sublingual 0.4 mg sublingual UD PRN Chest Pain 04/24/19 11/03/23 History tablet (Nitrostat) metoprolol succinate 100 mg 100 mg PO BID #60 tabs 02/21/21 11/03/23 Rx tablet,extended release 24 hr sacubitril 97 mg-valsartan 103 mg 1 tab PO BID #60 tabs 02/21/21 11/03/23 Rx tablet (Entresto) aspirin 81 mg tablet,delayed 81 mg PO QAM 06/16/21 11/03/23 History release (Neisha Low Dose Aspirin) albuterol sulfate 2.5 mg/3 mL 2.5 mg inhalation Q6H PRN 12/02/21 11/03/23 History (0.083 %) solution for nebulization Shortness Of Breath Or Wheezing budesonide 0.25 mg/2 mL suspension 0.25 mg inhalation DAILY PRN 09/15/22 11/03/23 History for nebulization Shortness Of Breath blood-glucose meter (OneTouch #1 ea 10/12/22 10/19/23 Rx Verio Flex Meter) lancets 30 gauge (OneTouch Delica #100 ea 10/12/22 10/19/23 Rx Plus Lancet) Symbicort 160 mcg-4.5 2 inh inhalation BID #3 Inhalers 11/14/22 11/03/23 Rx mcg/actuation HFA aerosol inhaler (budesonide-formoterol) blood sugar diagnostic (OneTouch #100 ea 01/17/23 10/19/23 Rx Verio test strips) flash glucose scanning reader #1 ea 02/09/23 10/19/23 Rx (FreeStyle Karla 2 [place]) flash glucose sensor (FreeStyle #2 ea 02/09/23 10/19/23 Rx Karla 2 Sensor kit) pen needle, diabetic 31 gauge x #100 ea 02/16/23 10/19/23 Rx 5/16" (Comfort EZ Pen [place]) Oxygen Home #5 L 04/01/23 10/19/23 Rx atorvastatin 10 mg tablet 10 mg PO DAILY #90 tabs 04/19/23 11/03/23 Rx torsemide 100 mg tablet 100 mg PO BID #180 tabs 04/19/23 11/03/23 Rx isosorbide mononitrate 30 mg 60 mg (2 x 30 mg) PO DAILY #90 tabs 05/14/23 11/03/23 Rx tablet,extended release 24 hr hydroxyzine HCl 25 mg tablet 25 mg PO TID PRN itching #90 tabs 05/31/23 11/03/23 Rx triamcinolone acetonide 0.025 % 1 applic topical TID PRN rash #454 05/31/23 11/03/23 Rx topical cream grams blood-glucose meter,continuous #1 ea 09/03/23 10/19/23 Rx (FreeStyle Karla 3 [place]) blood-glucose sensor (FreeStyle #2 ea 09/03/23 10/19/23 Rx Karla 3 Sensor device) albuterol sulfate 90 mcg/actuation 1 inh inhalation QID PRN Shortness 10/12/23 11/03/23 History aerosol inhaler Of Breath Or Wheezing nystatin 100,000 unit/gram topical 1 applic topical BID PRN Skin 10/12/23 11/03/23 History powder Irritation magnesium oxide 400 mg (241.3 mg 400 mg PO BID 1 month #60 tabs 10/17/23 11/03/23 Rx magnesium) tablet spironolactone 25 mg tablet 50 mg (2 x 25 mg) PO BID 1 month 10/17/23 11/03/23 Rx #120 tabs tirzepatide 5 mg/0.5 mL 5 mg (0.5 mL) subcut WK #2 mL 11/01/23 11/03/23 Rx subcutaneous pen injector insulin glargine 100 unit/mL (3 65 unit subcut HS 11/03/23 11/03/23 History mL) subcutaneous pen (Lantus Solostar U-100 Insulin) lidocaine 5 % topical patch 1 patch topical DAILY PRN Pain 11/03/23 11/03/23 History Past Med/Surg History Problem List (Updated 11/04/23 @ 05:13 by Noé Jaquez MD) Acute on chronic respiratory failure with hypoxemia Periapical abscess Respiratory failure (Acute) Pulmonary edema (Acute) Acute on chronic HFrEF (heart failure with reduced ejection fraction) Hypomagnesemia (Acute) Acute congestive heart failure (Acute) Type 2 diabetes mellitus with peripheral neuropathy Type 2 diabetes mellitus with obesity Obstructive sleep apnea Diabetic peripheral neuropathy Non-proliferative diabetic retinopathy, both eyes Uncontrolled diabetes mellitus with hyperglycemia COPD (chronic obstructive pulmonary disease) (Chronic) 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 Difficult to manage. Integrated into heart failure clinic. Frequent admissions for heart failure exacerbations. Echo (05/31) EF=25-30% with mod to severe global hypokinesis, basal kelsi-septal akinetic wall, LVH, RVSP elevated at 30-40mmHg, and mod dilated ascending aorta. Managed medically with ASA + BB + ARB/Neprilysin inhibitor (Entresto) + high dose furosemide (160mg BID) + metolazone (3x weekly). Considering ICD given EF. NICM (nonischemic cardiomyopathy) (Acute) Pt admitted for elective ICD. Underwent procedure without any complications monitored over night and discharged home. Chronic respiratory failure AICD (automatic cardioverter/defibrillator) present Normocytic anemia Hypertension (Chronic) Poor intravenous access Morbid obesity with BMI of 50.0-59.9, adult Chronic anticoagulation Diabetes mellitus type II, uncontrolled (Chronic) Urinary bladder incontinence Hx of local infection of skin and subcutaneous tissue Ambulatory dysfunction (Chronic) Recurrent infection of skin Pulmonary nodule V tach (Acute) HFrEF (heart failure with reduced ejection fraction) Hemoptysis (Acute) Intellectual disability Medical non-compliance Vitamin D deficiency Medical History Respiratory failure Pulmonary edema Small bowel obstruction Housing instability, currently housed, at risk for homelessness Hearing loss of both ears Nonproliferative retinopathy due to secondary diabetes Dilatation of thoracic aorta Iliac aneurysm Vitamin D insufficiency Previously deficient, taking Vit D supplementation Umbilical hernia Lung nodule Fatty liver Surgical History H/O oral surgery History of carpal tunnel surgery S/P tonsillectomy History of cholecystectomy Family History Father , age 57 of an [place]. Heart disease Myocardial infarction Mother , age 67 of a ruptured neck vessel Sudden Other Depression Lung disease No pertinent family history Denies family history of Ovarian cancer Prostate cancer Breast cancer Colorectal cancer Social History Smoking Status: Former smoker Tobacco Type: Cigarettes Age Started Using Tobacco: 14; Age Quit Using Tobacco: 18; Cigarettes Per Day: 40; Second Hand Exposure: No; Do You Dip or Chew Tobacco: No; Hx Alcohol Use: No Hx Substance Use: No Preferred Language: Lithuanian Communication Ability: Effective Visual Impairment: No Limitations Hearing Ability: Normal Burring Wheel Operator Required: No Beliefs That Will Affect Care: None marital status: Current Living Situation: Homeless Current Living Situation Comment: Lives at home with current occupational status: unemployed How many Children do You have: 0 Feels Safe at Home: Yes Childhood Exposure to Second-Hand Smoke: Yes Dental Care, Regularly: Yes Physical Activity Frequency: Does not Exercise Seatbelt Use: never Sunscreen Use: No Assistive Devices: Cane, Oxygen - Continuous, Scooter/Electric Scooter and Walker Review of Systems Review of Systems: The patient denies chest pain, palpitations, sore throat, fevers, chills, sweats, nausea, vomiting, diarrhea , constipation, abdominal pain, pelvic pain, blood in urine or stool, dysuria, urinary frequency or urgency, lightheadedness, dizziness, headache, memory loss, loss of consciousness, rash, abnormal bruising or bleeding, imbalance, focal or generalized weakness, numbness or tingling in arms or legs, generalized arthralgias or myalgias, back or neck pain, or night sweats. The review of systems is otherwise negative other than for that already noted above, and at least 10 systems have been reviewed. Physical Exam Physical Exam: The patient is awake, alert and oriented 3, well developed and well nourished, normocephalic and atraumatic, sitting upright in bed and in mild respiratory distress. HEENT--PERRL, EOMI, mucous membranes and oropharynx dry. Neck--supple. No JVD. No bruits. Thyroid normal, trachea midline, no adenopathy. Heart--normal S1 and S2. No murmurs, rubs or gallops. Lungs--crackles at the bases bilaterally to fdc up., Mild respiratory distress with accessory muscle use. Abdomen--normal bowel sounds and soft. Nontender. Nondistended. Morbidly obese Extremities-- 2+ bilateral pretibial pitting edema. Dermatologic--normal skin turgor, normal color, no abnormal lymph nodes, no rash. Neurologic--cranial nerves II through XII grossly intact. Rheumatologic-range of motion limited by body habitus Psychiatric--normal affect. Results & Data Results & Data Vital Signs (Past 12 Hours) Vital Signs Pulse Pulse Resp BP BP Pulse Ox O2 Del Method 11/03/23 22:06 104 H 22 98 CPAP 11/03/23 22:06 116 H 22 166/116 H 95 CPAP 11/03/23 21:04 98 BiPAP 11/03/23 20:40 118 H 27 H 97 11/03/23 20:40 118 H 27 H 97 BiPAP 11/03/23 20:15 120 H 20 168/136 H 98 CPAP FiO2 11/03/23 22:06 11/03/23 22:06 11/03/23 21:04 11/03/23 20:40 50 11/03/23 20:40 50 11/03/23 20:15 Laboratory Results Laboratory Results WBC 9.56 K/ul (4.8-10.8) 11/03/23 20:40 RBC 5.38 M/uL (4.70-6.10) 11/03/23 20:40 Hgb 15.8 g/dl (14.0-18.0) 11/03/23 20:40 Hct 45.8 % (42.0-52.0) 11/03/23 20:40 MCV 85.1 fL (80.0-100.0) 11/03/23 20:40 MCH 29.4 pg (25.0-34.0) 11/03/23 20:40 MCHC 34.5 g/dL (32.0-36.0) 11/03/23 20:40 RDW Std Deviation 44.7 fL (36.4-46.3) 11/03/23 20:40 RDW Coeff of Zoltan 14.6 % (11.5-14.5) H 11/03/23 20:40 Plt Count 144 K/uL (130-400) 11/03/23 20:40 MPV 10.7 fL (9.4-12.4) 11/03/23 20:40 Immature Gran % (Auto) 0.6 % 11/03/23 20:40 Neut % (Auto) 69.5 % 11/03/23 20:40 Lymph % (Auto) 21.1 % 11/03/23 20:40 Garrett % (Auto) 6.8 % 11/03/23 20:40 Eos % (Auto) 1.7 % 11/03/23 20:40 Baso % (Auto) 0.3 % 11/03/23 20:40 Neut # (Auto) 6.64 K/uL (1.40-6.50) H 11/03/23 20:40 Lymph # (Auto) 2.02 K/uL (1.20-3.40) 11/03/23 20:40 Garrett # (Auto) 0.65 K/uL (0.11-0.59) H 11/03/23 20:40 Eos # (Auto) 0.16 K/uL (0.00-0.50) 11/03/23 20:40 Baso # (Auto) 0.03 K/uL (0.00-0.20) 11/03/23 20:40 Immature Gran # (Auto) 0.06 K/uL (0.01-0.20) 11/03/23 20:40 PT 11.0 Seconds (9.0-12.0) 11/03/23 20:40 INR 1.0 (0.9-1.1) 11/03/23 20:40 APTT 30 Seconds (21-31) 11/03/23 20:40 PTT Ratio 1.1 11/03/23 20:40 VBG pH 7.39 (7.36-7.41) 11/03/23 21:00 VBG pCO2 42 mmHg (38-50) 11/03/23 21:00 VBG pO2 56 mmHg 11/03/23 21:00 VBG HCO3 25 mmol/L 11/03/23 21:00 VBG O2 Saturation 88.2 % 11/03/23 21:00 VBG Base Excess 0.3 mEq/L 11/03/23 21:00 Sodium 138 mmol/L (136-145) 11/03/23 20:40 Potassium 4.1 mmol/L (3.5-5.1) 11/03/23 20:40 Chloride 105 mmol/L (98-107) 11/03/23 20:40 Carbon Dioxide 24 mmol/L (21-32) 11/03/23 20:40 Anion Gap 9 (3-11) 11/03/23 20:40 BUN 15 mg/dl (6-23) 11/03/23 20:40 Creatinine 1.00 mg/dl (0.6-1.4) 11/03/23 20:40 Est Cr Clr Drug Dosing 147.4 ml/min 11/03/23 20:40 Est GFR ( Amer) 104.1 ml/min 11/03/23 20:40 Est GFR (Non-Af Amer) 89.9 ml/min 11/03/23 20:40 BUN/Creatinine Ratio 15.0 (10-20) 11/03/23 20:40 Glucose 220 mg/dl (70-99(Fasting)) H 11/03/23 20:40 Calcium 8.9 mg/dl (8.6-10.3) 11/03/23 20:40 Magnesium 1.7 mg/dl (1.7-2.4) 11/03/23 20:40 Total Bilirubin 1.1 mg/dl (0.2-1.0) H 11/03/23 20:40 AST 18 U/L (13-39) 11/03/23 20:40 ALT 14 U/L (7-52) 11/03/23 20:40 Alkaline Phosphatase 98 U/L (34-104) 11/03/23 20:40 Troponin I High Sens 29.6 pg/ml (0-20) H 11/03/23 22:50 B-Natriuretic Peptide 1023 pg/ml (0-100) H 11/03/23 20:40 Total Protein 7.8 gm/dl (6.0-8.3) 11/03/23 20:40 Albumin 4.1 gm/dl (3.4-5.0) 11/03/23 20:40 Globulin 3.7 gm/dl (2.5-4.0) 11/03/23 20:40 Albumin/Globulin Ratio 1.1 (0.9-2) 11/03/23 20:40 Urine Color Yellow 11/03/23 22:35 Urine Appearance Clear (Clear) 11/03/23 22:35 Urine pH 5.5 (4.5-7.5) 11/03/23 22:35 Ur Specific [place] 1.009 (1.000-1.030) 11/03/23 22:35 Urine Protein 1+ (Negative) H 11/03/23 22:35 Urine Glucose (UA) Negative (Negative) 11/03/23 22:35 Urine Ketones Negative (Negative) 11/03/23 22:35 Urine Blood Negative (Negative) 11/03/23 22:35 Urine Nitrite Negative (Negative) 11/03/23 22:35 Urine Bilirubin Negative (Negative) 11/03/23 22:35 Urine Urobilinogen Negative (Negative) 11/03/23 22:35 Ur Leukocyte Esterase Negative (Negative) 11/03/23 22:35 Urine WBC (Auto) 0-5 /hpf (0-5) 11/03/23 22:35 Urine RBC (Auto) 0-2 /hpf (0-2) 11/03/23 22:35 U Hyaline Cast (Auto) 0-2 /lpf (0-2) 11/03/23 22:35 U Epithel Cells (Auto) 0-2 /hpf (0-2) 11/03/23 22:35 Urine Bacteria (Auto) None Seen (None Seen) 11/03/23 22:35 Nasal Screen MRSA (PCR) Negative (Negative) 11/03/23 Unknown Adenovirus (PCR) Not Detected (NotDetected) 11/03/23 21:00 B. pertussis DNA (PCR) Not Detected (NotDetected) 11/03/23 21:00 B.parapertussis DNA PCR Not Detected (NotDetected) 11/03/23 21:00 C. pneumoniae DNA (PCR) Not Detected (NotDetected) 11/03/23 21:00 Coronavirus OC43 (PCR) Not Detected (NotDetected) 11/03/23 21:00 Coronavirus HKU1 (PCR) Not Detected (NotDetected) 11/03/23 21:00 Coronavirus 229E (PCR) Not Detected (NotDetected) 11/03/23 21:00 SARS-CoV-2 (PCR) Not Detected (NotDetected) 11/03/23 21:00 Coronavirus NL63 (PCR) Not Detected (NotDetected) 11/03/23 21:00 Human Metapneumovir PCR Not Detected (NotDetected) 11/03/23 21:00 Influenza Type A (PCR) Not Detected (NotDetected) 11/03/23 21:00 Influenza Type B (PCR) Not Detected (NotDetected) 11/03/23 21:00 M. pneumoniae (PCR) Not Detected (NotDetected) 11/03/23 21:00 Parainfluenza 1 (PCR) Not Detected (NotDetected) 11/03/23 21:00 Parainfluenza 2 (PCR) Not Detected (NotDetected) 11/03/23 21:00 Parainfluenza 3 (PCR) Not Detected (NotDetected) 11/03/23 21:00 Parainfluenza 4 (PCR) Not Detected (NotDetected) 11/03/23 21:00 RSV (PCR) Not Detected (NotDetected) 11/03/23 21:00 Entero/Rhino (PCR) Not Detected (NotDetected) 11/03/23 21:00 Impressions Soft Tissue Neck CT 11/03/23 22:30 Exam(s): CT NECK With Contrast IV Amt: 119 cc's optiray 320 EXAM: CT Neck With Intravenous Contrast CLINICAL HISTORY: Reason for exam: right sided dental pain. TECHNIQUE: Axial computed tomography images of the neck with intravenous contrast. CTDI is 23.71 mGy and DLP is 740.21 mGy-cm. Automated exposure control was utilized for the study. A dose lowering technique was utilized adhering to the principles of ALARA. CONTRAST: Patient received 119 cc's optiray 320 of IV contrast COMPARISON: No relevant prior studies available. FINDINGS: Nasal cavity/septum: Unremarkable. Nasopharynx: Unremarkable. Oropharynx: Unremarkable. No significant tonsillar enlargement. No peritonsillar abscess. Hypopharynx: Unremarkable. Larynx: Unremarkable. Normal epiglottis. Trachea: Unremarkable. Retropharyngeal space: Unremarkable. Submandibular/parotid glands: Unremarkable. Glands are normal in size. Thyroid: Unremarkable. No enlarged or calcified nodules. Bones/joints: No acute fracture. There was dental caries with periapical lucencies about tooth #20 concerning for periapical abscess. There is a severe spinal canal stenosis at C3-4. Soft tissues: Unremarkable. Vasculature: No acute findings. Lymph nodes: Prominent bilateral mediastinal lymph nodes. Prominent cervical lymph nodes. Sinuses: Unremarkable as visualized. No acute sinusitis. Lung apices: Bronchitis with pneumonitis and small bilateral pleural effusions. IMPRESSION: Prominent cervical lymph nodes. Otherwise, no evidence of acute cervical soft tissue pathology. Numerous dental caries with tyler-apical abscess about tooth #20. Recommend dental consult. Bronchitis with pneumonitis and bilateral pleural effusions with prominent mediastinal lymph nodes. Electronically signed by: Melissa Myles MD 11/04/23 02:27 AM Code Status & VTE Plan Code Status Full code VTE Prophylaxis Plan VTE Prophylaxis will be ordered: Yes PG Care Time/CCT Total # of Minutes Spent Total Time Spent with Patient: Total time spent is greater than 50% in coordination of care (as documented) at patient's floor/unit and/or counseling patient: Coding Level of Care Code 07231 INT INP/OBS CARE 3/75MIN Diagnoses Acute on chronic respiratory failure with hypoxemia J96.21 Acute on chronic HFrEF (heart failure with reduced ejection fraction) I50.23 Periapical abscess K04.7 NICM (nonischemic cardiomyopathy) I42.8 AICD (automatic cardioverter/defibrillator) present Z95.810 Type 2 diabetes mellitus with obesity E11.69; E66.9 Obstructive sleep apnea G47.33 Chronic obstructive pulmonary disease, unspecified COPD type J44.9 COPD type: unspecified COPD Hypertension I10 Hypertension type: unspecified (8) COPD (chronic obstructive pulmonary disease) COPD type: unspecified COPD Qualified Code(s): J44.9 - Chronic obstructive pulmonary disease, unspecified (9) Hypertension Hypertension type: unspecified Qualified Code(s): I10 - Essential (primary) hypertension
[2023-11-03] MEDS: CLINDAMYCIN/D5W 600 MG/50 ML BAG IV ONE (22:44)
[2023-11-03] MEDS: methylPREDNISolone 125 MG/2 ML VIAL IV STA (23:03)
[2023-11-03] MEDS: diphenhydrAMINE 50 MG/ML VIAL IV STA (23:04)
[2023-11-03] MEDS: FUROSEMIDE 40 MG/4 ML VIAL IV STA (23:04)
[2023-11-03] MEDS: ONDANSETRON INJ 2 MG/ML 2 ML VIAL IV STA (23:12)
[2023-11-03 23:14] LABS: Appearance Urine Clear (Clear); Bacteria Urine Automated None Seen (None Seen); Bilirubin Urine Negative (Negative); Blood Urine Negative (Negative); Cast Urine Automated 0-2 /lpf (0-2); Color Urine Yellow; Epithelial Cell Urine Auto 0-2 /hpf (0-2); Glucose Urine UA Negative (Negative); Ketones Urine Negative (Negative); Leukocyte Esterase Urine Negative (Negative); Nitrite Urine Negative (Negative); Protein Urine 1+ (Negative); RBC Urine Automated 0-2 /hpf (0-2); Specific Gravity Urine 1.009 (1.000-1.030); Urobilinogen Urine Negative (Negative); WBC Urine Automated 0-5 /hpf (0-5); pH Urine 5.5 (4.5-7.5)
[2023-11-03] MEDS: OPTIRAY 320 125ml IV ONE (23:34)
[2023-11-03] MEDS: ONDANSETRON INJ 2 MG/ML 2 ML VIAL ONE (23:34)
[2023-11-03] MEDS ORDERED: ONDANSETRON INJ 2 MG/ML 2 ML VIAL IV PRN (23:56)
[2023-11-03] MEDS ORDERED: hydrOXYzine HCl 25 MG TAB PO PRN (23:56)
[2023-11-03] MEDS ORDERED: NITROGLYCERIN SL 0.4 MG/TAB TAB SL PRN (23:56)
[2023-11-04] MEDS ORDERED: GLUCOSE 40% GEL 15 GM TUBE PO PRN (00:15)
[2023-11-04] MEDS ORDERED: GLUCAGON FOR INJ 1 MG VIAL IM PRN (00:15)
[2023-11-04] MEDS ORDERED: GLUCOSE 10 TAB/TUBE PO PRN (00:15)
[2023-11-04] MEDS ORDERED: CARBOHYDRATES FOR HYPOGLYCEMIA PO PRN (00:15)
[2023-11-04] MEDS ORDERED: DEXTROSE 50% 50 ML SYRINGE IV PRN (00:15)
[2023-11-04] MEDS: ERTAPENEM SODIUM 1,000 MG in SYRINGE 0 ML IV STA (00:24)
--- NOTE | 2023-11-04 02:28 | CT Scan Report ---
Exam(s): CT NECK With Contrast IV Amt: 119 cc's optiray 320 EXAM: CT Neck With Intravenous Contrast CLINICAL HISTORY: Reason for exam: right sided dental pain. TECHNIQUE: Axial computed tomography images of the neck with intravenous contrast. CTDI is 23.71 mGy and DLP is 740.21 mGy-cm. Automated exposure control was utilized for the study. A dose lowering technique was utilized adhering to the principles of ALARA. CONTRAST: Patient received 119 cc's optiray 320 of IV contrast COMPARISON: No relevant prior studies available. FINDINGS: Nasal cavity/septum: Unremarkable. Nasopharynx: Unremarkable. Oropharynx: Unremarkable. No significant tonsillar enlargement. No peritonsillar abscess. Hypopharynx: Unremarkable. Larynx: Unremarkable. Normal epiglottis. Trachea: Unremarkable. Retropharyngeal space: Unremarkable. Submandibular/parotid glands: Unremarkable. Glands are normal in size. Thyroid: Unremarkable. No enlarged or calcified nodules. Bones/joints: No acute fracture. There was dental caries with periapical lucencies about tooth #20 concerning for periapical abscess. There is a severe spinal canal stenosis at C3-4. Soft tissues: Unremarkable. Vasculature: No acute findings. Lymph nodes: Prominent bilateral mediastinal lymph nodes. Prominent cervical lymph nodes. Sinuses: Unremarkable as visualized. No acute sinusitis. Lung apices: Bronchitis with pneumonitis and small bilateral pleural effusions. IMPRESSION: Prominent cervical lymph nodes. Otherwise, no evidence of acute cervical soft tissue pathology. Numerous dental caries with tyler-apical abscess about tooth #20. Recommend dental consult. Bronchitis with pneumonitis and bilateral pleural effusions with prominent mediastinal lymph nodes. Electronically signed by: Melissa Myles MD 11/04/23 02:27 AM
--- NOTE | 2023-11-04 05:20 | Billing Data ---
Date of Service November 04, 2023 Coding Level of Care Code 26541 INT INP/OBS CARE
[2023-11-04 05:25] LABS: Hematocrit (blood only) 42.7 % (42.0-52.0); Hemoglobin 14.5 g/dl (14.0-18.0); Mean Corpuscular Hemoglobin 29.2 pg (25.0-34.0); Mean Corpuscular Volume 86.1 fL (80.0-100.0); Mean Platelet Volume 10.5 fL (9.4-12.4); Platelet Count 132 K/uL (130-400); RDW Coefficient of Variation 14.6 % (11.5-14.5); RDW Standard Deviation 45.5 fL (36.4-46.3); Red Blood Count 4.96 M/uL (4.70-6.10); White Blood Count 10.49 K/ul (4.8-10.8)
[2023-11-04 05:43] LABS: Basophils # (auto) 0.01 K/uL (0.00-0.20); Basophils % (auto) 0.1 %; Immature Granulocytes # (auto) 0.04 K/uL (0.01-0.20); Immature Granulocytes % (auto) 0.4 %; Lymphocytes # (auto) 0.47 K/uL (1.20-3.40); Lymphocytes % (auto) 4.5 %; Monocytes # (auto) 0.11 K/uL (0.11-0.59); Neutrophils # (auto) 9.86 K/uL (1.40-6.50); Polychromasia 1+
[2023-11-04 06:10] LABS: Albumin Level 3.8 gm/dl (3.4-5.0); Calcium 8.8 mg/dl (8.6-10.3); Magnesium 1.6 mg/dl (1.7-2.4); Potassium 4.5 mmol/L (3.5-5.1)
[2023-11-04] MEDS: CLINDAMYCIN/D5W 600 MG/50 ML BAG IV SCH (06:11)
[2023-11-04 06:16] LABS: BUN Creatinine Ratio 18.8 (10-20); Creatinine Clr Calc Pharmacy 153.6 ml/min; Est GFR (African American) 109.4 ml/min; Est GFR (Non-African American) 94.4 ml/min; Phosphorus 3.6 mg/dl (2.5-4.9)
[2023-11-04] MEDS: ALBUT/IPRATROP 3MG/0.5MG NEB 3 ML VIAL NEB SCH (07:10)
[2023-11-04] MEDS: BUDESONIDE 0.25 MG/2 ML VIAL (PULMICORT) INH SCH (07:11)
--- NOTE | 2023-11-04 08:17 | XRay Report ---
XR chest 1V portable CLINICAL HISTORY: Dyspnea. COMPARISON STUDY: Chest CT March 30, 2023. Chest radiograph October 12, 2023. FINDINGS: Left subclavian pacer is in place. Cardiomegaly is unchanged. There are small bilateral ple ural effusions. There is no pneumothorax. Interstitial thickening persists. Bilateral lower lung opac ities are similar to prior exam. IMPRESSION: 1. Cardiomegaly with persistent pulmonary edema and small bilateral pleural effusions. 2. Persistent bilateral lower lung opacities which may represent alveolar pulmonary edema. Superimpos ed pneumonia could appear similar. ACT 112: Negative or not required by law. Electronically signed by: Eyad Rosario M.D. 11/04/2023 8:15 AM
[2023-11-04] MEDS: METOPROLOL SUCC 50MG EXT REL TAB PO SCH (08:26)
[2023-11-04] MEDS: MAGNESIUM OXIDE 400 MG TAB PO SCH (08:26)
[2023-11-04] MEDS: FUROSEMIDE 40 MG/4 ML VIAL IV SCH (08:26)
[2023-11-04] MEDS: ISOSORBIDE MONO EXTENDED REL 60 MG TABCR PO SCH (08:27)
[2023-11-04] MEDS: ATORVASTATIN 10 MG TAB PO SCH (08:27)
[2023-11-04] MEDS: ASPIRIN 81 MG ECTAB PO SCH (08:27)
[2023-11-04] MEDS: VALSARTAN/SACUBITRIL 103/97MG TAB PO SCH (08:27)
[2023-11-04] MEDS: SPIRONOLACTONE 25 MG TAB PO SCH (08:27)
[2023-11-04] MEDS ORDERED: PHARMACY GLYCEMIC MGMT CONSULT PRN (11:59)
--- NOTE | 2023-11-04 12:22 | Electrocardiogram Report ---
Test Reason : Blood Pressure : */* mmHG Vent. Rate : 117 BPM Atrial Rate : 117 BPM P-R Int : 156 ms QRS Dur : 108 ms QT Int : 350 ms P-R-T Axes : 17 -46 99 degrees QTcB Int : 488 ms Sinus tachycardia Possible Left atrial enlargement Left axis deviation Minimal voltage criteria for LVH, may be normal variant T wave abnormality, consider lateral ischemia Abnormal ECG When compared with ECG of 14-Oct-2023 06:00, ST no longer depressed in Inferior leads Confirmed by Rodney Cary ([id number]) on 11/04/2023 12:21:56 PM Referred By: REFERRED SELF Confirmed By: Rodney Cary
[2023-11-04] MEDS: INSULIN ASPART PER UNIT CHARGE SC SCH (13:04)
--- NOTE | 2023-11-04 13:16 | Oral/Maxillofacial Consult ---
Date of Consultation November 04, 2023 Assessment & Plan (1) Periapical abscess: (2) Chronic dental pain: (3) Subperiosteal abscess of jaw: History of Present Illness Attending Physician: Shemar Sky History of Present Illness Oral Maxillofacial Surgery Exam-gross decay,dental pain requiring extraction of all remaining teeth. Assessment & Plan (1) Acute on chronic respiratory failure with hypoxemia: (2) Acute on chronic HFrEF (heart failure with reduced ejection fraction): (3) Periapical abscess: (4) NICM (nonischemic cardiomyopathy): (5) AICD (automatic cardioverter/defibrillator) present: (6) Type 2 diabetes mellitus with obesity: (7) Obstructive sleep apnea: (8) COPD (chronic obstructive pulmonary disease): (9) Hypertension: Plan Acute on chronic respiratory failure with hypoxia/acute on chronic HFrEF/COPD exacerbation- The patient will be admitted to telemetry for serial cardiac enzymes, serial EKG's, cardiac rhythm monitoring Given furosemide 80 mg IV in the ED, and will continue 80 mg IV twice daily Continue BiPAP, taper to mask/nasal cannula as symptoms improve Continue aspirin 81 mg every morning, isosorbide mononitrate 60 mg daily, spironolactone 50 mg p.o. twice daily mag oxide 400 mg p.o. twice daily, metoprolol succinate 100 mg twice daily, Entresto 97-103 twice daily Hold torsemide Daily CBC with differential, renal function panel and magnesium level COPD exacerbation- Continue Pulmicort Respules Duonebs every 4 hours while awake and every 2 hours when necessary. BioFire testing negative Ertapenem and clindamycin IV as below Multiple dental caries/periapical abscess around tooth #20- Significant reaction to cephalosporins and amoxicillin Ertapenem 1 g IV every 24 hours Clindamycin 600 mg IV every [address] Doll Diabetes mellitus- Hold tirzepatide Continue glargine Placed on Accu-Cheks with NovoLog SSI History of Present Illness Chief Complaint: The patient is brought to the emergency department via ambulance, due to an acute worsening of his chronic shortness of breath over the past 3 days. Primary Care Provider: Gosia Becker MD The patient is a 47-year-old male with a past medical history including chronic HFrEF, chronic respiratory failure, diabetes mellitus type 2, peripheral neuropathy, morbid obesity, MARIELENA, COPD, nonischemic cardiomyopathy, presence of AICD, hypertension, morbid obesity, history of V. tach, intellectual disability, medical noncompliance. He presents to the emergency department with 3 days of worsening shortness of breath. He denies any recent travels or sick exposures. He reports that he has been taking his medications as directed. Upon arrival to the emergency department he was placed on BiPAP, as he usually requires upon arrival, and reports feeling some improvement in breathing. Present Complaint: Besides his other symptoms he has pain/swelling/drainage from his grossly infected teeth. Symptoms have been ongoing for a long while. All teeth hurt, fractured and decayed Oral Exam: Finding--P-cor associated with the grossly fractured and carious teeth, tender gingival tissue with deep pocket formation.\\ Teeth are fractured to gum line and grossly infected/decayed and removal is clinical indicated. Subperiosteal abscess of the lower right/left posterior area. Imaging: Exam(s): CT NECK With Contrast IV Amt: 119 cc's optiray 320 EXAM: CT Neck With Intravenous Contrast CLINICAL HISTORY: Reason for exam: right sided dental pain. TECHNIQUE: Axial computed tomography images of the neck with intravenous contrast. CTDI is 23.71 mGy and DLP is 740.21 mGy-cm. Automated exposure control was utilized for the study. A dose lowering technique was utilized adhering to the principles of ALARA. FINDINGS: Nasal cavity/septum: Unremarkable. Nasopharynx: Unremarkable. Oropharynx: Unremarkable. No significant tonsillar enlargement. No peritonsillar abscess. Hypopharynx: Unremarkable. Larynx: Unremarkable. Normal epiglottis. Trachea: Unremarkable. Retropharyngeal space: Unremarkable. Submandibular/parotid glands: Unremarkable. Glands are normal in size. Thyroid: Unremarkable. No enlarged or calcified nodules. Bones/joints: No acute fracture. There was dental caries with periapical lucencies about tooth #20 concerning for periapical abscess. There is a severe spinal canal stenosis at C3-4. Soft tissues: Unremarkable. Vasculature: No acute findings. Lymph nodes: Prominent bilateral mediastinal lymph nodes. Prominent cervical lymph nodes. Sinuses: Unremarkable as visualized. No acute sinusitis. Lung apices: Bronchitis with pneumonitis and small bilateral pleural effusions. IMPRESSION: Prominent cervical lymph nodes. Otherwise, no evidence of acute cervical soft tissue pathology. Numerous dental caries with tyler-apical abscess about tooth #20. Recommend dental consult. Bronchitis with pneumonitis and bilateral pleural effusions with prominent mediastinal lymph nodes. Soft tissue: The floor of the mouth, tongue, hard/soft palate, posterior pharyngeal area all with in normal limits, no pathology or abnormal findings noted. No lesions noted that require follow up or Bx. No swelling or abscess formation other then site # 20 Oral Care: Overall oral care is very poor or non existent Occlusion: Class I TMJ exam: No pop, clicking, pain, good ROM, No history of TMJ injury or dysfunction Periodontal exam: Evidence of advanced bole loss and severe periodontal pathology. Head/Neck exam: Neck is supple, FROM, Able to extend and flex neck w/o difficulty, no masses, no abnormalities, no airway issues, history of evidence of sleep apnea on Bi PAP Treatment Plan: Need to get medical clearance so that we can set up Alok set up for full mouth extractions Set up with general anesthesia in hospital due to complexity of the procedure I reviewed the treatment plan and consent with the patient Understanding was expressed. Time was given for questions regarding the surgery, risks and post op care. Discussed alternative to treatment--procedure as planned, Do not do surgery The following teeth are decayed and fractured and removal is indicated ABDOUL:---2,8,9,15,18,19,20,21,22,24,25,26,27,28,29,31+alveoplasty to allow future dentures Risks discussed: Bleeding,Pain,swelling,infection, dry socket, delayed healing, nerve injury to face,lips,tongue,chin area which could be permanent (rare). TMJ, jaw stiffness, change in bite (rare), ear pain (referred). Sinus problems like fistula or infection. Need to leave a small root fragment in place to avoid injury to nerve or sinus. Relationship of wisdom teeth to nerve/sinus and risk of jaw fracture. Surgery to be set up once once he is stable from a medical, pulmonary and cardiac perspective. Allergies Allergy/AdvReac Type Severity Reaction Status Date / Time albuterol Allergy Severe proair Verified 11/03/23 23:44 "trouble taking breaths" ceftriaxone Allergy Severe SHORTNESS Verified 11/03/23 23:44 OF BREATH lidocaine Allergy Severe SHORTNESS Verified 11/03/23 23:44 OF BREATH, diaphoretic, hives mushroom Allergy Severe Anaphylaxis Unverified 11/03/23 23:45 procaine Allergy Severe SHORTNESS Verified 11/03/23 23:44 OF BREATH, diaphoretic, hives amoxicillin Allergy Intermediate HIVES/FACIAL Verified 11/03/23 23:44 SWELLING clavulanic acid Allergy Intermediate HIVES/FACIAL Verified 11/03/23 23:44 SWELLING lisinopril Allergy Intermediate HIVES Verified 11/03/23 23:44 shellfish derived Allergy Unknown Unknown Verified 11/03/23 23:44 acetaminophen AdvReac Mild NAUSEA Verified 11/03/23 23:44 Fish Containing Products AdvReac Unknown Unknown Verified 11/03/23 23:44 Home Medications Medication Instructions Recorded Confirmed Type nitroglycerin 0.4 mg sublingual 0.4 mg sublingual UD PRN Chest Pain 04/24/19 11/03/23 History tablet (Nitrostat) metoprolol succinate 100 mg 100 mg PO BID #60 tabs 02/21/21 11/03/23 Rx tablet,extended release 24 hr sacubitril 97 mg-valsartan 103 mg 1 tab PO BID #60 tabs 02/21/21 11/03/23 Rx tablet (Entresto) aspirin 81 mg tablet,delayed 81 mg PO QAM 06/16/21 11/03/23 History release (Neisha Low Dose Aspirin) albuterol sulfate 2.5 mg/3 mL 2.5 mg inhalation Q6H PRN 12/02/21 11/03/23 History (0.083 %) solution for nebulization Shortness Of Breath Or Wheezing budesonide 0.25 mg/2 mL suspension 0.25 mg inhalation DAILY PRN 09/15/22 11/03/23 History for nebulization Shortness Of Breath blood-glucose meter (Think GlobalTouch #1 ea 10/12/22 10/19/23 Rx Verio Flex Meter) lancets 30 gauge (Think GlobalTouch Delica #100 ea 10/12/22 10/19/23 Rx Plus Lancet) Symbicort 160 mcg-4.5 2 inh inhalation BID #3 Inhalers 11/14/22 11/03/23 Rx mcg/actuation HFA aerosol inhaler (budesonide-formoterol) blood sugar diagnostic (Think GlobalTouch #100 ea 01/17/23 10/19/23 Rx Verio test strips) flash glucose scanning reader #1 ea 02/09/23 10/19/23 Rx (FreeStyle Karla 2 [place]) flash glucose sensor (FreeStyle #2 ea 02/09/23 10/19/23 Rx Karla 2 Sensor kit) pen needle, diabetic 31 gauge x #100 ea 02/16/23 10/19/23 Rx 5/16" (Comfort EZ Pen [place]) Oxygen Home #5 L 04/01/23 10/19/23 Rx atorvastatin 10 mg tablet 10 mg PO DAILY #90 tabs 04/19/23 11/03/23 Rx torsemide 100 mg tablet 100 mg PO BID #180 tabs 04/19/23 11/03/23 Rx isosorbide mononitrate 30 mg 60 mg (2 x 30 mg) PO DAILY #90 tabs 05/14/23 11/03/23 Rx tablet,extended release 24 hr hydroxyzine HCl 25 mg tablet 25 mg PO TID PRN itching #90 tabs 05/31/23 11/03/23 Rx triamcinolone acetonide 0.025 % 1 applic topical TID PRN rash #454 05/31/23 11/03/23 Rx topical cream grams blood-glucose meter,continuous #1 ea 09/03/23 10/19/23 Rx (FreeStyle Karla 3 [place]) blood-glucose sensor (FreeStyle #2 ea 09/03/23 10/19/23 Rx Karla 3 Sensor device) albuterol sulfate 90 mcg/actuation 1 inh inhalation QID PRN Shortness 10/12/23 11/03/23 History aerosol inhaler Of Breath Or Wheezing nystatin 100,000 unit/gram topical 1 applic topical BID PRN Skin 10/12/23 11/03/23 History powder Irritation magnesium oxide 400 mg (241.3 mg 400 mg PO BID 1 month #60 tabs 10/17/23 11/03/23 Rx magnesium) tablet spironolactone 25 mg tablet 50 mg (2 x 25 mg) PO BID 1 month 10/17/23 11/03/23 Rx #120 tabs tirzepatide 5 mg/0.5 mL 5 mg (0.5 mL) subcut WK #2 mL 11/01/23 11/03/23 Rx subcutaneous pen injector insulin glargine 100 unit/mL (3 65 unit subcut HS 11/03/23 11/03/23 History mL) subcutaneous pen (Lantus Solostar U-100 Insulin) lidocaine 5 % topical patch 1 patch topical DAILY PRN Pain 11/03/23 11/03/23 History Patient History Medical History Respiratory failure Pulmonary edema Small bowel obstruction Housing instability, currently housed, at risk for homelessness Hearing loss of both ears Nonproliferative retinopathy due to secondary diabetes Dilatation of thoracic aorta Iliac aneurysm Vitamin D insufficiency Previously deficient, taking Vit D supplementation Umbilical hernia Lung nodule Fatty liver Surgical History H/O oral surgery History of carpal tunnel surgery S/P tonsillectomy History of cholecystectomy Family History Father , age 57 of an VT. Heart disease Myocardial infarction Mother , age 67 of a ruptured neck vessel Sudden Other Depression Lung disease No pertinent family history Denies family history of Ovarian cancer Prostate cancer Breast cancer Colorectal cancer Social History Smoking Status: Former smoker Tobacco Type: Cigarettes Age Started Using Tobacco: 14; Age Quit Using Tobacco: 18; Cigarettes Per Day: 40; Second Hand Exposure: No; Do You Dip or Chew Tobacco: No; Hx Alcohol Use: No Hx Substance Use: No Preferred Language: Amharic Communication Ability: Effective Visual Impairment: No Limitations Hearing Ability: Normal Transformation Specialist Required: No Beliefs That Will Affect Care: None marital status: Current Living Situation: Homeless Current Living Situation Comment: Lives at home with current occupational status: unemployed How many Children do You have: 0 Feels Safe at Home: Yes Childhood Exposure to Second-Hand Smoke: Yes Dental Care, Regularly: Yes Physical Activity Frequency: Does not Exercise Seatbelt Use: never Sunscreen Use: No Assistive Devices: Cane, Oxygen - Continuous, Scooter/Electric Scooter and Walker Results & Data Vital Signs (Past 12 Hours) Vital Signs Temp Pulse Pulse Resp BP BP BP 11/04/23 11:42 36.6 C 98 H 18 149/78 H 11/04/23 10:34 88 20 11/04/23 10:01 77 11/04/23 10:01 11/04/23 09:59 36.5 C 74 20 139/83 11/04/23 08:20 79 24 125/86 11/04/23 08:02 62 24 125/88 11/04/23 07:30 74 16 128/104 H 11/04/23 07:11 84 23 11/04/23 07:11 86 23 11/04/23 06:09 80 20 162/111 H 11/04/23 03:57 82 26 H 118/86 11/04/23 03:45 98 H 22 11/04/23 03:08 84 23 129/85 11/04/23 03:08 11/04/23 03:06 84 23 129/85 11/04/23 02:03 86 25 H 158/95 H Pulse Ox O2 Del Method O2 Flow Rate FiO2 11/04/23 11:42 90 Nasal Cannula 5 11/04/23 10:34 94 Nasal Cannula 6 11/04/23 10:01 11/04/23 10:01 Nasal Cannula, BiPAP 6 11/04/23 09:59 94 Nasal Cannula 6 11/04/23 08:20 98 BiPAP 11/04/23 08:02 98 BiPAP 11/04/23 07:30 98 BiPAP 11/04/23 07:11 94 40 11/04/23 07:11 97 BiPAP 40 11/04/23 06:09 93 BiPAP 11/04/23 03:57 91 BiPAP 11/04/23 03:45 95 40 11/04/23 03:08 95 BiPAP 11/04/23 03:08 95 BiPAP 11/04/23 03:06 95 BiPAP 11/04/23 02:03 95 BiPAP PG Care Time/CCT Total # of Minutes Spent Total Time Spent with Patient: Total time spent is greater than 50% in coordination of care (as documented) at patient's floor/unit and/or counseling patient: Coding Level of Care Code 03667 INT INP/OBS CARE 2/55MIN Diagnoses Periapical abscess K04.7 Chronic dental pain K08.9; G89.29 Subperiosteal abscess of jaw M27.2
--- NOTE | 2023-11-04 14:00 | Pharmacy Report ---
Pharmacy Glycemic Short Note 2 - Date of Service November 04, 2023 - Glycemic Short BSG Results (Last 24 hours): 11/03/23 11/04/23 11/04/23 20:40 04:39 12:21 Glucose 220 H 259 H POC Glucose 387 H* OUTPATIENT ANTIDIABETIC REGIMEN: * Mounjaro 5mg SQ every WED * Lantus 65 units HS * HbA1c 8.1% (10/12/23) ASSESSMENT: * Alok is a 47 YOM admitted with difficulty breathing and a history of T2DM. Pharmacy has been consulted to assist with glycemic management while inpatient. * Fasting BSG this AM elevated, multifactorial including missed evening Lantus, no Novolog ordered, and one time IV Solumedrol 125mg dose. He is also on Invanz and clindamycin for dental abscess. Will give half of home dose of Lantus now due to BSGs greater than 300mg/dL and plan to give up to home Lantus dosing at bedtime based on BSG. * Novolog initiated at a weight based stress of 2 also predicted based on outpatient basal requirement PLAN FOR INPATIENT GLYCEMIC CONTROL: * Hold outpatient oral diabetes medications * Basal insulin * Lantus 30 units SQ now x1 * Lantus 0-30 units SQ HS based on BSG (see eMAR for additional details) * Bolus insulin * NovoLog per scale ACHS or Q6hrs while NPO * Goal Range: Low 110 mg/dL - High 140 mg/dL * Correction Factor: 15 mg/dL/unit * Nutritional / Prandial insulin per carb ratio of 1 unit per 5 grams CHO consumed
[2023-11-04] MEDS: LANTUS PER UNIT CHARGE SC ONE ×2 (15:06→21:21)
[2023-11-04] MEDS ORDERED: LANTUS PER UNIT CHARGE SC SCH (21:00)
[2023-11-04] MEDS: ERTAPENEM SODIUM 1,000 MG in SYRINGE 0 ML IV SCH (21:23)
--- NOTE | 2023-11-04 22:49 | Hospitalist Progress Note ---
Date of Service November 04, 2023 Assessment & Plan (1) Acute on chronic respiratory failure with hypoxemia: (2) Acute on chronic HFrEF (heart failure with reduced ejection fraction): (3) Periapical abscess: (4) NICM (nonischemic cardiomyopathy): (5) AICD (automatic cardioverter/defibrillator) present: (6) Type 2 diabetes mellitus with obesity: (7) Obstructive sleep apnea: (8) COPD (chronic obstructive pulmonary disease): (9) Hypertension: Plan Acute on chronic respiratory failure with hypoxia/acute on chronic HFrEF/COPD exacerbation- The patient will be admitted to telemetry for serial cardiac enzymes, serial EKG's, cardiac rhythm monitoring Given furosemide 80 mg IV in the ED, and will continue 80 mg IV twice daily Continue BiPAP, taper to mask/nasal cannula as symptoms improve Continue aspirin 81 mg every morning, isosorbide mononitrate 60 mg daily, spironolactone 50 mg p.o. twice daily mag oxide 400 mg p.o. twice daily, metoprolol succinate 100 mg twice daily, Entresto 97-103 twice daily Hold torsemide Daily CBC with differential, renal function panel and magnesium level continue to diurese: negative about 500 COPD exacerbation- Continue Pulmicort Respules Duonebs every 4 hours while awake and every 2 hours when necessary. BioFire testing negative Ertapenem and clindamycin IV as below Multiple dental caries/periapical abscess around tooth #20- Significant reaction to cephalosporins and amoxicillin Ertapenem 1 g IV every 24 hours Clindamycin 600 mg IV every [address] Doll: awaiting for improvement of problem 1 before performing pocedure to treat this problem Diabetes mellitus- Hold tirzepatide Continue glargine Placed on Accu-Cheks with NovoLog SSI Given that patient has defibrillator, will transfer out of PCU Admission and Anticipated Discharge Date Admission Date: November 03, 2023 Subjective Patient reports mild improvement from yesterday. Review of Systems Review of Systems: All systems reviewed & are unremarkable except as noted in HPI & below Physical Exam Physical Exam: The patient is awake, alert and oriented 3, well developed and well nourished, normocephalic and atraumatic, NAD HEENT--PERRL, EOMI Neck--supple. No JVD. No bruits. Thyroid normal, trachea midline, no adenopathy. Heart--normal S1 and S2. No murmurs, rubs or gallops. Lungs--crackles at the bases bilaterally. Abdomen--normal bowel sounds and soft. Nontender. Nondistended. Morbidly obese Extremities-- 2+ bilateral pretibial pitting edema. Results & Data Results & Data Vital Signs (Past 12 Hours) Vital Signs Temp Pulse Pulse Resp BP BP Pulse Ox 11/04/23 19:48 86 18 96 11/04/23 19:34 36.5 C 97 H 16 138/77 95 11/04/23 17:35 120/66 11/04/23 15:24 36.5 C 86 18 99/57 L 92 11/04/23 15:20 87 11/04/23 15:13 91 H 20 94 11/04/23 11:42 36.6 C 98 H 18 149/78 H 90 O2 Del Method O2 Flow Rate 11/04/23 19:48 Nasal Cannula 5 11/04/23 19:34 Nasal Cannula 4.0 11/04/23 17:35 11/04/23 15:24 Nasal Cannula 4 11/04/23 15:20 11/04/23 15:13 Nasal Cannula 5 11/04/23 11:42 Nasal Cannula 5 PG Care Time/CCT Total # of Minutes Spent Total Time Spent with Patient: Total time spent is greater than 50% in coordination of care (as documented) at patient's floor/unit and/or counseling patient: Coding Level of Care Code 06704 SUB INP/OBS CARE 2/35MIN Diagnoses Acute on chronic respiratory failure with hypoxemia J96.21 Acute on chronic HFrEF (heart failure with reduced ejection fraction) I50.23 Periapical abscess K04.7 NICM (nonischemic cardiomyopathy) I42.8 AICD (automatic cardioverter/defibrillator) present Z95.810 Type 2 diabetes mellitus with obesity E11.69; E66.9 Obstructive sleep apnea G47.33 Chronic obstructive pulmonary disease, unspecified COPD type J44.9 COPD type: unspecified COPD Hypertension I10 Hypertension type: unspecified (8) COPD (chronic obstructive pulmonary disease) COPD type: unspecified COPD Qualified Code(s): J44.9 - Chronic obstructive pulmonary disease, unspecified (9) Hypertension Hypertension type: unspecified Qualified Code(s): I10 - Essential (primary) hypertension
[2023-11-05 08:03] LABS: Basophils # (auto) 0.02 K/uL (0.00-0.20); Basophils % (auto) 0.1 %; Eosinophils # (auto) 0.01 K/uL (0.00-0.50); Eosinophils % (auto) 0.1 %; Hematocrit (blood only) 41.4 % (42.0-52.0); Hemoglobin 13.6 g/dl (14.0-18.0); Immature Granulocytes # (auto) 0.05 K/uL (0.01-0.20); Immature Granulocytes % (auto) 0.3 %; Lymphocytes # (auto) 1.88 K/uL (1.20-3.40); Lymphocytes % (auto) 12.7 %; Mean Corpuscular Hemoglobin 29.2 pg (25.0-34.0); Mean Corpuscular Hgb Conc 32.9 g/dL (32.0-36.0); Mean Corpuscular Volume 88.8 fL (80.0-100.0); Mean Platelet Volume 10.6 fL (9.4-12.4); Monocytes # (auto) 0.98 K/uL (0.11-0.59); Monocytes % (auto) 6.6 %; Neutrophils # (auto) 11.82 K/uL (1.40-6.50); Neutrophils % (auto) 80.2 %; Platelet Count 149 K/uL (130-400); RDW Coefficient of Variation 14.9 % (11.5-14.5); RDW Standard Deviation 47.9 fL (36.4-46.3); Red Blood Count 4.66 M/uL (4.70-6.10); White Blood Count 14.76 K/ul (4.8-10.8)
[2023-11-05 08:24] LABS: Albumin Level 3.5 gm/dl (3.4-5.0); Calcium 8.6 mg/dl (8.6-10.3); Creatinine Clr Calc Pharmacy 151.4 ml/min; Est GFR (African American) 115.2 ml/min; Est GFR (Non-African American) 99.4 ml/min; Magnesium 1.8 mg/dl (1.7-2.4); Phosphorus 4.1 mg/dl (2.5-4.9); Potassium 4.4 mmol/L (3.5-5.1)
--- NOTE | 2023-11-05 10:16 | Pharmacy Report ---
Pharmacy Glycemic Short Note 2 - Date of Service November 05, 2023 - Glycemic Short BSG Results (Last 24 hours): 11/04/23 11/04/23 11/04/23 12:21 16:10 20:46 Glucose POC Glucose 387 H* 286 H 139 H 11/05/23 11/05/23 07:34 07:45 Glucose 173 H POC Glucose 159 H OUTPATIENT ANTIDIABETIC REGIMEN: * Mounjaro 5mg SQ every WED * Lantus 65 units HS * HbA1c 8.1% (10/12/23) ASSESSMENT: 11/04 * BSGs improved over last 24 hrs, likely due to wearing off of Solu-Medrol dose given in ED as well as acute initial stressors * Based upon prior hospitalization data, pt will likely require 60+ units of b sindi insulin per day while tolerating a diet. Will continue HS dosing of Lantus as done as outpt * Will adjust Novolog CF/CR doses based upon prior admission data. Pt tends to require larger prandial insulin doses 11/03 * Alok is a 47 YOM admitted with difficulty breathing and a history of T2DM. Pharmacy has been consulted to assist with glycemic management while inpatient. * Fasting BSG this AM elevated, multifactorial including missed evening Lantus, no Novolog ordered, and one time IV Solumedrol 125mg dose. He is also on Invanz and clindamycin for dental abscess. Will give half of home dose of Lantus now due to BSGs greater than 300mg/dL and plan to give up to home Lantus dosing at bedtime based on BSG. * Novolog initiated at a weight based stress of 2 also predicted based on outpatient basal requirement PLAN FOR INPATIENT GLYCEMIC CONTROL: * Hold outpatient oral diabetes medications * Basal insulin * Lantus 60 units SQ Q HS * Bolus insulin * NovoLog per scale ACHS or Q6hrs while NPO * Goal Range: Low 110 mg/dL - High 140 mg/dL * Correction Factor: 12 mg/dL/unit * Nutritional / Prandial insulin per carb ratio of 1 unit per 4 grams CHO consumed
[2023-11-05 11:44] VITALS: RESP 18
[2023-11-05] MEDS: ACETAMINOPHEN 325 MG TAB PO PRN (14:12)
--- NOTE | 2023-11-05 18:57 | Hospitalist Progress Note ---
Date of Service November 05, 2023 Assessment & Plan (1) Acute on chronic HFrEF (heart failure with reduced ejection fraction): Plan: Acute on chronic respiratory failure with hypoxia/acute on chronic HFrEF. Patient is well-known for having difficulty with managing his health conditions. He is currently homeless and staying at homeless skilled nursing which does make his choices of food difficult. I suspect he is consuming too much sodium in his diet. Echocardiogram 09/2023 with persistent LVEF 15-20%. Follows with [facility] cardiology Initially was on BiPAP and is now weaned to 2 L nasal cannula which I believe is his home amount of supplemental O2 He is diuresing well-continue Lasix 80 Mg IV twice daily Follow BMP and magnesium and keep electrolytes optimal Continue aspirin 81 mg every morning, isosorbide mononitrate 60 mg daily, spironolactone 50 mg p.o. twice daily mag oxide 400 mg p.o. twice daily, metoprolol succinate 100 mg twice daily, Entresto 97-103 twice daily Hold torsemide from home Counseled on low-sodium diet, fluid restriction at home, daily weights Follow-up with cardiology as an outpatient (2) Acute on chronic respiratory failure with hypoxemia: Plan: As noted above Improving (3) Periapical abscess: Plan: Multiple dental caries/periapical abscess around tooth #20- With leukocytosis but no fever Significant reaction to cephalosporins and amoxicillin reported in his allergies, however the patient and his on the phone states that he is not allergic to penicillins Pain is much improved, pending oral surgery for tooth extraction and drainage of abscess-this will happen tomorrow. Make n.p.o. after midnight Continue ertapenem 1 g IV every 24 hours Can discontinue clindamycin 600 mg IV every 8 hours as it is not providing any additional benefit Appreciate OMFS consultation (4) Type 2 diabetes mellitus with obesity: Plan: Recent hemoglobin A1c uncontrolled 8.1% Hold tirzepatide from home Continue glargine Placed on Accu-Cheks with NovoLog SSI (5) Obstructive sleep apnea: Plan: Noncompliant with CPAP but tries to use it (6) COPD (chronic obstructive pulmonary disease): Plan: I do not believe he is having a COPD exacerbation Continue Pulmicort Respules Duonebs every 4 hours while awake and every 2 hours when necessary. BioFire testing negative Continue supplemental O2 (7) Hypertension: Plan: Blood pressures are controlled Continue home medications Plan Left-sided neck pain-tender to palpation in the left cervical paraspinous muscles. He does have a severe spinal stenosis seen at C3-C4 on CT soft tissues of the neck performed on admission and this also is likely contributing Advised Tylenol as needed DVT prophylaxis-start Lovenox after procedure tomorrow Disposition-continued stay, he is on medical status but has not been downgraded yet out of the PCU Admission and Anticipated Discharge Date Admission Date: November 03, 2023 Subjective Patient complains of muscle tightness and pain in the left side of his neck ongoing for a long time. He reports that he sleeps on the floor without pillows at times and other times sleeps with 4 pillows upright in a chair. He has been sleeping at a homeless skilled nursing. His dental pain is much better since getting antibiotics. He is pleased with this. He understands the risk of anesthesia with his severe cardiomyopathy but he wishes to accept that risk and have his teeth extracted as it is causing him a significant problem with being able to eat. I discussed his care with the oral surgeon. Telemetry with normal sinus rhythm with rates in the 60s to 70s He reports that he only drinks 2 cans of sprite per day and no water. He tries to eat a low-sodium diet. He reports only reason he came in this admission is because he slipped on a wet floor and fell into a cabinet and then this caused him to get short of breath. Physical Exam Constitutional: WD/WN, vitals as above + morbidly obese Respiratory: normal respiratory effort, lungs clear to auscultation Cardiovascular: Rate/Rhythm: regular rate and regular rhythm Extremities: + edema (1+ pitting edema legs bilaterally) Psychiatric: A+Ox3, euthymic affect Results & Data Results & Data Vital Signs (Past 12 Hours) Vital Signs Temp Pulse Pulse Resp BP BP Pulse Ox 11/05/23 15:33 80 18 98 11/05/23 15:00 36.5 C 75 20 99/67 L 99 11/05/23 13:00 85 11/05/23 11:43 36.4 C L 68 18 99/61 L 99 11/05/23 11:09 88 22 94 11/05/23 08:15 11/05/23 07:47 36.3 C L 86 16 108/69 97 11/05/23 07:16 59 L 18 94 11/05/23 07:00 49 L O2 Del Method O2 Flow Rate 11/05/23 15:33 Nasal Cannula 4 11/05/23 15:00 Nasal Cannula 4 11/05/23 13:00 11/05/23 11:43 Nasal Cannula 4 11/05/23 11:09 Nasal Cannula 4 11/05/23 08:15 Nasal Cannula 4 11/05/23 07:47 Nasal Cannula 4 11/05/23 07:16 Nasal Cannula 5 11/05/23 07:00 Laboratory Results CBC, BMP, magnesium reviewed PG Care Time/CCT Total # of Minutes Spent Total Time Spent with Patient: Total time spent is greater than 50% in coordination of care (as documented) at patient's floor/unit and/or counseling patient: Coding Level of Care Code 29833 SUB INP/OBS CARE 3/50MIN Diagnoses Acute on chronic HFrEF (heart failure with reduced ejection fraction) I50.23 Acute on chronic respiratory failure with hypoxemia J96.21 Periapical abscess K04.7 Type 2 diabetes mellitus with obesity E11.69; E66.9 Obstructive sleep apnea G47.33 Chronic obstructive pulmonary disease, unspecified COPD type J44.9 COPD type: unspecified COPD Hypertension I10 Hypertension type: unspecified (6) COPD (chronic obstructive pulmonary disease) COPD type: unspecified COPD Qualified Code(s): J44.9 - Chronic obstructive pulmonary disease, unspecified (7) Hypertension Hypertension type: unspecified Qualified Code(s): I10 - Essential (primary) hypertension
[2023-11-05] MEDS: BUDESONIDE 0.5 MG/2 ML VIAL (PULMICORT) INH SCH (20:09)
[2023-11-05] MEDS ORDERED: LANTUS PER UNIT CHARGE SC SCH (21:00)
[2023-11-05] MEDS: MAGNESIUM SULFATE / D5W 1 GM/100 ML BAG IV ONE (22:05)
[2023-11-05] MEDS: LANTUS PER UNIT CHARGE SC ONE (22:35)
--- NOTE | 2023-11-06 07:18 | Oral/Maxillofacial Progress Nt ---
Date of Service November 06, 2023 Assessment & Plan Admission and Anticipated Discharge Date Admission Date: November 03, 2023 Subjective From a medical point of view he is now stabilized for surgery. He is NPO and we will plan the I&D and removal of the grossly infected teeth and roots which are causing him the significant pain and contributing to his stress and other issues. Medical clearance given so that we can set up Alok set up for full mouth extractions Set up with general anesthesia in hospital due to complexity of the procedure I reviewed the treatment plan and consent with the patient Understanding was expressed. Time was given for questions regarding the surgery, risks and post op care. Discussed alternative to treatment--procedure as planned, Do not do surgery The following teeth are decayed and fractured and removal is indicated ABDOUL:---2,8,9,15,18,19,20,21,22,24,25,26,27,28,29,31+alveoplasty to allow future dentures. Plan surgery for today We will sign consent once he is brought to the OR area. Results & Data Vital Signs (Past 12 Hours) Vital Signs Temp Pulse Pulse Resp BP Pulse Ox Pulse Ox 11/06/23 00:30 67 18 98 11/05/23 23:56 97 11/05/23 22:25 36.9 C 18 95 11/05/23 22:25 73 108/70 11/05/23 21:47 86 11/05/23 20:09 84 18 98 11/05/23 20:00 O2 Del Method O2 Del Method O2 Flow Rate FiO2 11/06/23 00:30 40 11/05/23 23:56 BiPAP 11/05/23 22:25 Nasal Cannula 2 11/05/23 22:25 11/05/23 21:47 11/05/23 20:09 Nasal Cannula 2 11/05/23 20:00 Nasal Cannula 2 PG Care Time/CCT Total # of Minutes Spent Total Time Spent with Patient: Total time spent is greater than 50% in coordination of care (as documented) at patient's floor/unit and/or counseling patient: Coding Level of Care Code None
[2023-11-06 07:19] VITALS: BP 111/73; TEMP 97.7
[2023-11-06 07:38] LABS: Basophils # (auto) 0.03 K/uL (0.00-0.20); Basophils % (auto) 0.3 %; Eosinophils # (auto) 0.11 K/uL (0.00-0.50); Eosinophils % (auto) 1.1 %; Hematocrit (blood only) 43.9 % (42.0-52.0); Hemoglobin 14.5 g/dl (14.0-18.0); Immature Granulocytes # (auto) 0.07 K/uL (0.01-0.20); Immature Granulocytes % (auto) 0.7 %; Lymphocytes # (auto) 3.04 K/uL (1.20-3.40); Lymphocytes % (auto) 30.7 %; Mean Corpuscular Hemoglobin 28.9 pg (25.0-34.0); Mean Corpuscular Volume 87.5 fL (80.0-100.0); Mean Platelet Volume 10.6 fL (9.4-12.4); Monocytes # (auto) 0.84 K/uL (0.11-0.59); Monocytes % (auto) 8.5 %; Neutrophils % (auto) 58.7 %; Platelet Count 150 K/uL (130-400); RDW Standard Deviation 47.3 fL (36.4-46.3); Red Blood Count 5.02 M/uL (4.70-6.10); White Blood Count 9.89 K/ul (4.8-10.8)
[2023-11-06 08:02] LABS: Albumin Level 3.4 gm/dl (3.4-5.0); BUN Creatinine Ratio 31.7 (10-20); Calcium 8.5 mg/dl (8.6-10.3); Creatinine Clr Calc Pharmacy 135.8 ml/min; Est GFR (African American) 102.9 ml/min; Est GFR (Non-African American) 88.8 ml/min; Magnesium 2.2 mg/dl (1.7-2.4); Phosphorus 4.5 mg/dl (2.5-4.9); Potassium 4.4 mmol/L (3.5-5.1)
[2023-11-06] MEDS: TROLAMINE SALICYLATE 10% CRM 255 APPLN/85 GM TUBE EXT PRN (08:30)
--- NOTE | 2023-11-06 10:32 | Oral/Maxillofacial Progress Nt ---
Date of Service November 06, 2023 Assessment & Plan Admission and Anticipated Discharge Date Admission Date: November 03, 2023 Subjective After reviewing the case anesthesia will not clear Alok for the anesthesia. An anesthesia note will be forthcoming with more details regarding their reasons and suggested plan for ongoing dental care. I reviewed this with Jorge Luis and hopefully once he is on discharge he can be referred for his needed dental care. Results & Data Vital Signs (Past 12 Hours) Vital Signs Temp Pulse Pulse Resp BP Pulse Ox Pulse Ox 11/06/23 07:22 78 18 92 11/06/23 07:21 11/06/23 07:17 36.5 C 78 18 111/73 98 11/06/23 00:30 67 18 98 11/05/23 23:56 97 O2 Del Method O2 Del Method O2 Flow Rate FiO2 11/06/23 07:22 Nasal Cannula 2 11/06/23 07:21 Nasal Cannula 4 11/06/23 07:17 BiPAP 11/06/23 00:30 40 11/05/23 23:56 BiPAP PG Care Time/CCT Total # of Minutes Spent Total Time Spent with Patient: Total time spent is greater than 50% in coordination of care (as documented) at patient's floor/unit and/or counseling patient: Coding Level of Care Code None
--- NOTE | 2023-11-06 10:49 | Communication Note ---
Date of Service: November 06, 2023 Patient admitted emergently on 11/03/2023 w/ CHF and difficulty breathing. Pt has Non Ischemic CM w/ EF 15-20%. Pt is morbidly obese w/ MARIELENA,acute on chronic resp. failure,HTN,NIDDM w/ diabetic PN,Cor Pulmonale and AICD for V Tach.Pt i s not optimized. As a matter of Fact, pt was inquiring about a heart transplant and pt. was told he was no where near in optimal shape for a heart transplant and is not a candidate. Pt is at the highest risk for a general anesthetic and therefore, not a candidate for this at this time. I have discussed this w/ Freida Cadet and Sharmila. He can get his teeth extracted under strict local anesthesia. I think this is his best option, as I have also discussed this w/ patient.
[2023-11-06 11:20] VITALS: PULSE 63; O2SAT 97
--- NOTE | 2023-11-06 12:22 | Discharge Summary ---
Discharge Summary Date of Service November 06, 2023 Principal Dx & Hospital Course #1 = Principal Diagnosis (1) Acute on chronic HFrEF (heart failure with reduced ejection fraction): Acute on chronic respiratory failure with hypoxia/acute on chronic HFrEF. Patient is well-known for having difficulty with managing his health conditions. He is currently homeless and [facility] which does make his choices of food difficult. I suspect he is consuming too much sodium in his diet. Echocardiogram 09/2023 with persistent LVEF 15-20%. Follows with [facility] cardiology Initially was on BiPAP and is now weaned to 2 L nasal cannula which I believe is his home amount of supplemental O2 He was treated with lasix 80mg IV bid and diuresed over 6 L net negative this stay and his weight is down to 317 lbs -revert to home torsemide 100mg po bid Continue aspirin 81 mg every morning, isosorbide mononitrate 60 mg daily, spironolactone 50 mg p.o. twice daily mag oxide 400 mg p.o. twice daily, metoprolol succinate 100 mg twice daily, Entresto 97-103 twice daily Counseled on low-sodium diet, fluid restriction at home, daily weights Follow-up with cardiology as an outpatient (2) Acute on chronic respiratory failure with hypoxemia: As noted above, resolved (3) Periapical abscess: Multiple dental caries/periapical abscess around tooth #20- With leukocytosis but no fever-WBC count now normal after treatment with IV ertapenem x 3 days Significant reaction to cephalosporins and amoxicillin reported in his allergies Pain is much improved, was evaluated for oral surgery for all remaining teeth to be extracted and drainage of abscess, but deemed too high risk for general anesthesia He is allergic to procaine and lidocaine so cannot be done under local anesthesia only Surgery cancelled, f/u with dentist as outpt Dc to home on po clindamycin 300mg po every 8 hours x 7 more days Appreciate OMFS consultation (4) Type 2 diabetes mellitus with obesity: Recent hemoglobin A1c uncontrolled 8.1% can resume tirzepatide from home on discharge Continue glargine f/u PCP (5) Obstructive sleep apnea: Noncompliant with CPAP currently as it is in storage while he is in the homeless prison (6) COPD (chronic obstructive pulmonary disease): I do not believe he is having a COPD exacerbation Continue Pulmicort Respules Duonebs every 4 hours while awake and every 2 hours when necessary. BioFire testing negative Continue supplemental O2 (7) Hypertension: Blood pressures are controlled Continue home medications Plan Left-sided neck pain-tender to palpation in the left cervical paraspinous muscles. He does have a severe spinal stenosis seen at C3-C4 on CT soft tissues of the neck performed on admission and this also is likely contributing Advised Tylenol as needed and Aspercreme topically DVT prophylaxis-ambulation Disposition-dc to home Notes For Next Care Provider Suggest he follow on a weekly basis with a CHF Clinic at [facility] Cardiology if one is available Needs follow up with a dentist as an outpt Medication Changes From Visit Added clindamycin 300mg po tid x 7 days Admission HPI Per Admitting Provider The patient is a 47-year-old male with a past medical history including chronic HFrEF, chronic respiratory failure, diabetes mellitus type 2, peripheral neuropathy, morbid obesity, MARIELENA, COPD, nonischemic cardiomyopathy, presence of AICD, hypertension, morbid obesity, history of V. tach, intellectual disability, medical noncompliance. He presents to the emergency department with 3 days of worsening shortness of breath. He denies any recent travels or sick exposures. He reports that he has been taking his medications as directed. Upon arrival to the emergency department he was placed on BiPAP, as he usually requires upon arrival, and reports feeling some improvement in breathing. Discharge Exam Constitutional WD/WN, vitals as above + morbidly obese Respiratory normal respiratory effort, lungs clear to auscultation Cardiovascular Rate/Rhythm: regular rate and regular rhythm Extremities: no edema Psychiatric A+Ox3, euthymic affect Discharge Plan Discharge Items Patient Disposition: Home - Self-Care Reason For Visit: ACUTE ON CHRONIC RESP FAILURE, DENTAL INFECTION Discharge Diagnosis: Acute on chronic respiratory failure with hypoxia Acute on chronic HFrEF Dental infection Activity: Resume your previous activity Exercise/Sports: As tolerated Non-emergency contact: Primary Care Provider and Beef Breaker Call non-emergency contact if: you have any medication questions and your symptoms worsen Follow-up/Referrals: Gosia Becker MD [Primary Care Provider] - (Follow up within 1-2 weeks) Diet: Carb Consistent or DM2 and Low Sodium (2gm) Fluids: 1500ml (6 cups) Addtl Attending Provider Instructions: You were admitted with shortness of breath from fluid overload. It is very important that you monitor how much sodium you eat--> read the labels on your food and you should eat less than 2000 mg of sodium per day. You should also not drink more than 50 ounces of fluid per day. Your weight when you left the hospital is down to 317 lbs. You should weight yourself every day and if you gain more than 3 pounds from one day to the next, call your doctor and get advice on whether you should take extra water pills. You should finish 7 more days of the antibiotic called clindamycin for your dental infection. Unfortunately, it is too dangerous for you to undergo anesthesia for your tooth extraction surgery. Please continue to follow up with a dentist outside of the hospital. Call your Primary Care doctor if any of the following symptoms or problems start or get worse: * Shortness of breath or difficulty breathing * Wake up at night short of breath * Chest pain * Cough * Swelling of your hands, feet, or legs * More fatigued or tired with your normal activity * Palpitations - sudden fast heart beats WEIGHT * Weigh yourself every morning after using the bathroom. * Use the same scale. * Wear the same amount of clothing. * Write your weight down on a chart. * Call your Primary Care doctor if you gain more than 2-3 pounds in 1-2 days. MEDICATIONS * Use this discharge instruction sheet for medication instructions. * Take your medications at the time your doctor ordered. * Do not skip a dose of your medicines. * If you miss a dose of medicine, take it as soon as possible, but DO NOT DOUBLE A DOSE. * Read your medicine information when you get home. * Know all of the side effects of your medicine. If in doubt, ask your pharmacist * Call your Primary Care doctor's office if you have any side effects. * Be sure all of your doctors know what medicine and herbs you take (including cold, flu, and herbal medicine). Take the following with you to your follow-up doctor appointments: * Weight Chart * Medication List * List of questions Do not drink excessive alcohol, beer or wine. Pending Studies at Discharge: No Stand-Alone Forms: My [facility] SharedReviews, Smoking Cessation Medications and DC Order Prescriptions: New trolamine salicylate [Myoflex] 10 % Cream 1 applic EXT BID PRN (Reason: left sided neck pain) Qty: 35.4 0RF Rx Instructions: Please give tube from hospital clindamycin HCl 300 mg capsule 300 mg PO TID 7 Days Qty: 21 0RF Continued tirzepatide 5 mg/0.5 mL pen injector 5 mg subcut WK Qty: 2 1RF Rx Instructions: Sunday (DME) pen needle, diabetic [Comfort EZ Pen Golden] 31 gauge x 5/16" needle See Rx Instructions .Route Qty: 100 3RF Rx Instructions: use when administering insuling daily Entresto 97-103 mg tablet 1 tab PO BID Qty: 60 5RF metoprolol succinate 100 mg tablet extended release 24 hr 100 mg PO BID Qty: 60 5RF budesonide 0.25 mg/2 mL suspension for nebulization 0.25 mg inhalation DAILY PRN (Reason: Shortness Of Breath) budesonide-formoterol [Symbicort] 160-4.5 mcg/actuation HFA aerosol inhaler 2 inh inhalation BID Qty: 3 3RF Rx Instructions: 2 puffs twice per day. Rinse mouth after each use (DME) OneTouch Verio test strips Strip See Rx Instructions miscellaneous .MEDSUPPLY Qty: 100 5RF Rx Instructions: check 3x a day (DME) FreeStyle Karla 2 [place] Misc See Rx Instructions .Route Qty: 1 0RF Rx Instructions: for use with Karla 2 sensor (DME) FreeStyle Karla 2 Sensor Kit See Rx Instructions .Route Qty: 2 11RF Rx Instructions: change sensor every 14 days (DME) lancets [OneTouch Delica Plus Lancet] 30 gauge misc See Rx Instructions .ROUTE .MEDSUPPLY Qty: 100 5RF Rx Instructions: use new lancet 3x a day (DME) blood-glucose meter [OneTouch Verio Flex meter] Misc See Rx Instructions .ROUTE .MEDSUPPLY Qty: 1 0RF Rx Instructions: As directed atorvastatin 10 mg tablet 10 mg PO DAILY Qty: 90 3RF torsemide 100 mg tablet 100 mg PO BID Qty: 180 0RF Rx Instructions: 100 mg orally twice a day; isosorbide mononitrate 30 mg tablet extended release 24 hr 60 mg PO DAILY Qty: 90 0RF hydroxyzine HCl 25 mg tablet 25 mg PO TID PRN (Reason: itching) Qty: 90 1RF triamcinolone acetonide 0.025 % cream 1 applic topical TID PRN (Reason: rash) Qty: 454 0RF (DME) FreeStyle Karla 3 Sensor Device See Rx Instructions .Route Qty: 2 3RF Rx Instructions: As directed, change every 14 days (DME) FreeStyle Karla 3 [place] Misc See Rx Instructions .Route Qty: 1 0RF Rx Instructions: As directed nitroglycerin [Nitrostat] 0.4 mg tablet, sublingual 0.4 mg sublingual UD PRN (Reason: Chest Pain) aspirin [Neisha Low Dose Aspirin] 81 mg tablet,delayed release (DR/EC) 81 mg PO QAM albuterol sulfate 2.5 mg /3 mL (0.083 %) solution for nebulization 2.5 mg inhalation Q6H PRN (Reason: Shortness Of Breath Or Wheezing) Rx Instructions: Use every 6 hours as needed with nebulizer nystatin 100,000 unit/gram powder 1 applic topical BID PRN (Reason: Skin Irritation) Rx Instructions: pt uses but is out of it albuterol sulfate 90 mcg/actuation HFA aerosol inhaler 1 inh inhalation QID PRN (Reason: Shortness Of Breath Or Wheezing) spironolactone 25 mg Tablet 50 mg PO BID 30 Days Qty: 120 0RF magnesium oxide 400 mg (241.3 mg magnesium) Tablet 400 mg PO BID 30 Days Qty: 60 0RF (DME) Oxygen Home Liters Per Minute See Rx Instructions .Route Qty: 5 0RF Rx Instructions: As directed lidocaine 5 % adhesive patch,medicated 1 patch topical DAILY PRN (Reason: Pain) insulin glargine [Lantus Solostar U-100 Insulin] 100 unit/mL (3 mL) insulin pen 65 unit subcut HS Discharge Orders: Discharge Order- CHF (Routine); Ordered 11/06/23 Ordered By: Tonja Cadet Admission Data Admit Date/Time: 11/03/23 22:26 Attending Provider: Tonja Cadet Admit Provider: Noé Jaquez Primary Care Provider: Gosia Becker Other Providers: Noé Jaquez; Umair Doll Hospital Stay Data Consultations 11/03/23 22:05 ED Decision to Admit Stat 11/04/23 05:10 Consult Oromaxillofacial Surgery Routine Procedures Performed Operation Date: 11/06/23 07:00 <No data on this case meets the specified criteria> Diagnostic Imagining Performed 11/03/23 22:30 CT soft tissue neck w con Stat Pending Results Patient Have Any Pending Studies at Discharge: No Discharge Instructions Given to Patient (Per Discharging Provider) You were admitted with shortness of breath from fluid overload. It is very important that you monitor how much sodium you eat--> read the labels on your food and you should eat less than 2000 mg of sodium per day. You should also not drink more than 50 ounces of fluid per day. Your weight when you left the hospital is down to 317 lbs. You should weight yourself every day and if you gain more than 3 pounds from one day to the next, call your doctor and get advice on whether you should take extra water pills. You should finish 7 more days of the antibiotic called clindamycin for your dental infection. Unfortunately, it is too dangerous for you to undergo anesthesia for your tooth extraction surgery. Please continue to follow up with a dentist outside of the hospital. Call your Primary Care doctor if any of the following symptoms or problems start or get worse: * Shortness of breath or difficulty breathing * Wake up at night short of breath * Chest pain * Cough * Swelling of your hands, feet, or legs * More fatigued or tired with your normal activity * Palpitations - sudden fast heart beats WEIGHT * Weigh yourself every morning after using the bathroom. * Use the same scale. * Wear the same amount of clothing. * Write your weight down on a chart. * Call your Primary Care doctor if you gain more than 2-3 pounds in 1-2 days. MEDICATIONS * Use this discharge instruction sheet for medication instructions. * Take your medications at the time your doctor ordered. * Do not skip a dose of your medicines. * If you miss a dose of medicine, take it as soon as possible, but DO NOT DOUBLE A DOSE. * Read your medicine information when you get home. * Know all of the side effects of your medicine. If in doubt, ask your pharmacist * Call your Primary Care doctor's office if you have any side effects. * Be sure all of your doctors know what medicine and herbs you take (including cold, flu, and herbal medicine). Take the following with you to your follow-up doctor appointments: * Weight Chart * Medication List * List of questions Do not drink excessive alcohol, beer or wine. Total Time Total Time Spent Total Time Spent (In Minutes): 35 min Total Time Includes: Examination of the Patient, Discharge Planning, Medication Reconciliation and Communication With Other Providers (Anesthesia,OMFS) Coding Level of Care Code 84875 INP/OBS DISCH >30 MIN Diagnoses Acute on chronic HFrEF (heart failure with reduced ejection fraction) I50.23 Acute on chronic respiratory failure with hypoxemia J96.21 Periapical abscess K04.7 Type 2 diabetes mellitus with obesity E11.69; E66.9 Obstructive sleep apnea G47.33 Chronic obstructive pulmonary disease, unspecified COPD type J44.9 COPD type: unspecified COPD Hypertension I10 Hypertension type: unspecified
== END 2023-11-06 14:20 | disposition home or self-care (01) | DRG 291 ==
LOC: ED 20:18 → EDINP 22:26 → SUATTDRO 22:26 → 2S 23:57

== ENCOUNTER 2023-11-21 17:09 | Observation (INO) ==
[2023-11-21] MEDS: NITROGLYCERIN 2% OINTMENT 30GM TUBE EXT STA (17:19)
[2023-11-21] MEDS: FUROSEMIDE 40 MG/4 ML VIAL IV ONE ×3 (17:19→18:46)
[2023-11-21] MEDS: NITROGLYCERIN 2% OINTMENT 30GM TUBE EXT ONE (17:20)
--- NOTE | 2023-11-21 17:38 | XRay Report ---
XR chest 1V portable CLINICAL HISTORY: Dyspnea TECHNIQUE: Single frontal radiograph of the chest was obtained. Comparison: Comparison is made to chest radiograph 11/03/2023 FINDINGS: No lines and tubes are seen. Cardiomegaly is noted. There is prominence and cephalization of the vasc ulature with Larissa B lines seen. Bilateral lower lung airspace opacities are seen. Possible small bi lateral pleural effusions. IMPRESSION: 1. Cardiomegaly and moderate pulmonary edema. This is similar to prior exam. 2. Bilateral lower lung opacities which may represent alveolar edema or aspiration/pneumonia. 3. Possible small bilateral pleural effusions. ACT 112: Negative or not required by law. Electronically signed by: Trey Coronel M.D. 11/21/2023 5:36 PM
[2023-11-21 17:44] LABS: iSTAT Hemoglobin 16.3 g/dl (14.0-18.0); iSTAT Ionized Calcium 1.17 mmol/l (1.12-1.32); iSTAT Potassium 3.8 mmol/L (3.3-5.0)
[2023-11-21 17:54] LABS: Basophils # (auto) 0.03 K/uL (0.00-0.20); Basophils % (auto) 0.3 %; Eosinophils # (auto) 0.05 K/uL (0.00-0.50); Eosinophils % (auto) 0.6 %; Hemoglobin 15.5 g/dl (14.0-18.0); Immature Granulocytes # (auto) 0.04 K/uL (0.01-0.20); Immature Granulocytes % (auto) 0.5 %; Lymphocytes # (auto) 1.25 K/uL (1.20-3.40); Lymphocytes % (auto) 14.2 %; Mean Platelet Volume 10.5 fL (9.4-12.4); Monocytes % (auto) 6.8 %; Neutrophils # (auto) 6.85 K/uL (1.40-6.50); Neutrophils % (auto) 77.6 %; Platelet Count 155 K/uL (130-400); RDW Coefficient of Variation 15.7 % (11.5-14.5); RDW Standard Deviation 50.1 fL (36.4-46.3); Red Blood Count 5.34 M/uL (4.70-6.10); White Blood Count 8.82 K/ul (4.8-10.8)
[2023-11-21 17:54] LABS: Appearance Urine Clear (Clear); Bacteria Urine Automated None Seen (None Seen); Bilirubin Urine Negative (Negative); Blood Urine Negative (Negative); Cast Urine Automated 0-2 /lpf (0-2); Color Urine Yellow; Epithelial Cell Urine Auto 0-2 /hpf (0-2); Glucose Urine UA Negative (Negative); Ketones Urine Negative (Negative); Leukocyte Esterase Urine Negative (Negative); Nitrite Urine Negative (Negative); Protein Urine Trace (Negative); RBC Urine Automated 0-2 /hpf (0-2); Specific Gravity Urine 1.006 (1.000-1.030); Urobilinogen Urine Negative (Negative); WBC Urine Automated 0-5 /hpf (0-5)
[2023-11-21 17:58] LABS: Alanine Aminotransferase 15 U/L (7-52); Albumin Globulin Ratio 1.2 (0.9-2); Alkaline Phosphatase 89 U/L (34-104); Anion Gap 10 (3-11); Aspartate Aminotransferase 16 U/L (13-39); BUN Creatinine Ratio 11.7 (10-20); Bilirubin,Total 1.7 mg/dl (0.2-1.0); Blood Urea Nitrogen 11 mg/dl (6-23); Calcium 8.9 mg/dl (8.6-10.3); Carbon Dioxide 23 mmol/L (21-32); Chloride 107 mmol/L (98-107); Globulin 3.3 gm/dl (2.5-4.0); Glucose 257 mg/dl (70-99(Fasting)); Magnesium 1.4 mg/dl (1.7-2.4); Potassium 3.8 mmol/L (3.5-5.1); Sodium 140 mmol/L (136-145); Total Protein 7.3 gm/dl (6.0-8.3)
[2023-11-21 18:04] LABS: Troponin I High Sensitivity 18.7 pg/ml (0-20)
[2023-11-21 18:06] LABS: INR 1.1 (0.9-1.1); Partial Thromboplastin Ratio 1.1; Partial Thromboplastin Time 29 Seconds (21-31); Prothrombin Time 11.5 Seconds (9.0-12.0)
[2023-11-21] MEDS: MAGNESIUM SULFATE / D5W 1 GM/100 ML BAG IV SCH (18:24)
--- NOTE | 2023-11-21 18:34 | History & Physical Report ---
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 Bicarb 23. Mag 1.4. Repleted. 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 Patient was ordered Lasix 40 mg IV x 1 in the ER. Adequate output, given torsemide dosing roughly equivalent to 100 mg twice daily of Lasix will give another 40 mg IV. Patient has responded well with 80 mg IV twice daily on past admissions. Creatinine 0.94, at baseline at time of admission. BNP pending Continue Lasix 80 mg twice daily with potassium supplementation, strict ins and outs, heart healthy diet Clinically rapidly improving on BiPAP and following initial 2 doses of Lasix in the ER (2) Diabetes mellitus type II, uncontrolled: Plan: T2DM -Basal 65 units at bedtime daily continued SSI based on basal requirements --> CF 10, CR 5 Goal BSG [id number] Heart healthy/DM2 diet (3) COPD (chronic obstructive pulmonary disease): Plan: COPD -No diffuse wheezing, trace focal end expiratory wheeze in right upper lobe on admission. SPECT that this is not a COPD exacerbation, suspect acute on chronic CHF - Nebs PRN for wheezing - Continue Pulmicort MARIELENA - BiPAP HSPRN - Noncompliant at home (4) Chronic dental pain: Plan: HIstory of Periapical Abscesses - Completed outpatient course of antibiotics with clindamycin - Too high risk for general anesthesia/tooth extraction - No fever or leukocytosis currently. No pain on admission. Monitor. (5) Morbid obesity with BMI of 50.0-59.9, adult: Plan DVT PPx: Lovenox Diet: HH/DM2 Dispo: PCU CODE: FUll History of Present Illness Primary Care Provider: Gosia Becker MD Alok is a 47-year-old male with a past history of heart failure with reduced ejection fraction with AICD, type 2 diabetes with neuropathy, chronic respiratory failure, morbid obesity, history of V. tach again with AICD, medical noncompliance/intellectual disability with recent admission 10/2023 for acute on chronic HFrEF who presents to the ER by EMS with respiratory distress on BiPAP with SpO2 87%, worsening edema, and hypertension. A few seen at the bedside. He reports around 5 days he has had worsening leg swelling, shortness of breath, orthopnea, and feeling generally poor. He is not wheezing currently had some wheezing over the last 5 days. Denies fever or ch ills. Denies nausea/vomiting. Denies stomach pain. He reports he did complete antibiotics for his dental infection, has not had surgery for this. Denies dental pain at time of admission. He reports he took all of his medications this morning. At time bedside assessment he is not short of breath on the BiPAP. He denies chest pain/chest pressure at any point. Medical History: Reviewed Medications: Reviewed Surgical History: Reviewed Family history: Reviewed Allergies: Reviewed Social History: Reviewed Code Status: Full Allergies Allergy/AdvReac Type Severity Reaction Status Date / Time albuterol Allergy Severe proair Verified 11/20/23 14:11 "trouble taking breaths" ceftriaxone Allergy Severe SHORTNESS Verified 11/20/23 14:11 OF BREATH lidocaine Allergy Severe SHORTNESS Verified 11/20/23 14:11 OF BREATH, diaphoretic, hives mushroom Allergy Severe Anaphylaxis Unverified 11/20/23 14:11 procaine Allergy Severe SHORTNESS Verified 11/20/23 14:11 OF BREATH, diaphoretic, hives amoxicillin Allergy Intermediate HIVES/FACIAL Verified 11/20/23 14:11 SWELLING clavulanic acid Allergy Intermediate HIVES/FACIAL Verified 11/20/23 14:11 SWELLING lisinopril Allergy Intermediate HIVES Verified 11/20/23 14:11 shellfish derived Allergy Unknown Unknown Verified 11/20/23 14:11 acetaminophen AdvReac Mild NAUSEA Verified 11/20/23 14:11 Fish Containing Products AdvReac Unknown Unknown Verified 11/20/23 14:11 Home Medications Medication Instructions Recorded Confirmed Type nitroglycerin 0.4 mg sublingual 0.4 mg sublingual UD PRN Chest Pain 04/24/19 11/21/23 History tablet (Nitrostat) metoprolol succinate 100 mg 100 mg PO BID #60 tabs 02/21/21 11/21/23 Rx tablet,extended release 24 hr sacubitril 97 mg-valsartan 103 mg 1 tab PO BID #60 tabs 02/21/21 11/21/23 Rx tablet (Entresto) aspirin 81 mg tablet,delayed 81 mg PO QAM 06/16/21 11/21/23 History release (Neisha Low Dose Aspirin) albuterol sulfate 2.5 mg/3 mL 2.5 mg inhalation Q6H PRN 12/02/21 11/21/23 History (0.083 %) solution for nebulization Shortness Of Breath Or Wheezing budesonide 0.25 mg/2 mL suspension 0.25 mg inhalation DAILY PRN 09/15/22 11/21/23 History for nebulization Shortness Of Breath blood-glucose meter (InsportantTouch #1 ea 10/12/22 11/21/23 Rx Verio Flex Meter) lancets 30 gauge (OneTouch Delica #100 ea 10/12/22 11/21/23 Rx Plus Lancet) Symbicort 160 mcg-4.5 2 inh inhalation BID #3 Inhalers 11/14/22 11/21/23 Rx mcg/actuation HFA aerosol inhaler (budesonide-formoterol) blood sugar diagnostic (InsportantTouch #100 ea 01/17/23 11/21/23 Rx Verio test strips) flash glucose scanning reader #1 ea 02/09/23 11/21/23 Rx (FreeStyle Karla 2 [place]) flash glucose sensor (FreeStyle #2 ea 02/09/23 11/21/23 Rx Karla 2 Sensor kit) pen needle, diabetic 31 gauge x #100 ea 02/16/23 11/21/23 Rx 5/16" (Comfort EZ Pen [place]) Oxygen Home #5 L 04/01/23 11/21/23 Rx atorvastatin 10 mg tablet 10 mg PO DAILY #90 tabs 04/19/23 11/21/23 Rx torsemide 100 mg tablet 100 mg PO BID #180 tabs 04/19/23 11/21/23 Rx isosorbide mononitrate 30 mg 60 mg (2 x 30 mg) PO DAILY #90 tabs 05/14/23 11/21/23 Rx tablet,extended release 24 hr hydroxyzine HCl 25 mg tablet 25 mg PO TID PRN itching #90 tabs 05/31/23 11/21/23 Rx triamcinolone acetonide 0.025 % 1 applic topical TID PRN rash #454 05/31/23 11/21/23 Rx topical cream grams blood-glucose meter,continuous #1 ea 09/03/23 11/21/23 Rx (FreeStyle Karla 3 [place]) blood-glucose sensor (FreeStyle #2 ea 09/03/23 11/21/23 Rx Karla 3 Sensor device) albuterol sulfate 90 mcg/actuation 1 inh inhalation QID PRN Shortness 10/12/23 11/21/23 History aerosol inhaler Of Breath Or Wheezing nystatin 100,000 unit/gram topical 1 applic topical BID PRN Skin 10/12/23 11/21/23 History powder Irritation tirzepatide 5 mg/0.5 mL 5 mg (0.5 mL) subcut WK #2 mL 11/01/23 11/21/23 Rx subcutaneous pen injector insulin glargine 100 unit/mL (3 65 unit subcut HS 11/03/23 11/21/23 History mL) subcutaneous pen (Lantus Solostar U-100 Insulin) lidocaine 5 % topical patch 1 patch topical DAILY PRN Pain 11/03/23 11/21/23 History trolamine salicylate 10 % topical 1 applic EXT BID PRN left sided 11/06/23 11/21/23 Rx cream (Myoflex) neck pain #35.4 grams Past Med/Surg History Problem List (Updated 11/08/23 @ 00:09 by Background Daemon) Subperiosteal abscess of jaw Chronic dental pain Acute on chronic respiratory failure with hypoxemia Periapical abscess Respiratory failure (Acute) Pulmonary edema (Acute) Acute on chronic HFrEF (heart failure with reduced ejection fraction) Hypomagnesemia (Acute) Acute congestive heart failure (Acute) Type 2 diabetes mellitus with peripheral neuropathy Type 2 diabetes mellitus with obesity Obstructive sleep apnea Diabetic peripheral neuropathy Non-proliferative diabetic retinopathy, both eyes Uncontrolled diabetes mellitus with hyperglycemia COPD (chronic obstructive pulmonary disease) (Chronic) 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 Difficult to manage. Integrated into heart failure clinic. Frequent admissions for heart failure exacerbations. Echo (05/31) EF=25-30% with mod to severe global hypokinesis, basal kelsi-septal akinetic wall, LVH, RVSP elevated at 30-40mmHg, and mod dilated ascending aorta. Managed medically with ASA + BB + ARB/Neprilysin inhibitor (Entresto) + high dose furosemide (160mg BID) + metolazone (3x weekly). Considering ICD given EF. NICM (nonischemic cardiomyopathy) (Acute) Pt admitted for elective ICD. Underwent procedure without any complications monitored over night and discharged home. Chronic respiratory failure AICD (automatic cardioverter/defibrillator) present Normocytic anemia Hypertension (Chronic) Poor intravenous access Morbid obesity with BMI of 50.0-59.9, adult Chronic anticoagulation Diabetes mellitus type II, uncontrolled (Chronic) Urinary bladder incontinence Hx of local infection of skin and subcutaneous tissue Ambulatory dysfunction (Chronic) Recurrent infection of skin Pulmonary nodule V tach (Acute) HFrEF (heart failure with reduced ejection fraction) Hemoptysis (Acute) Intellectual disability Medical non-compliance Vitamin D deficiency Medical History Respiratory failure Pulmonary edema Small bowel obstruction Housing instability, currently housed, at risk for homelessness Hearing loss of both ears Nonproliferative retinopathy due to secondary diabetes Dilatation of thoracic aorta Iliac aneurysm Vitamin D insufficiency Previously deficient, taking Vit D supplementation Umbilical hernia Lung nodule Fatty liver Surgical History H/O oral surgery History of carpal tunnel surgery S/P tonsillectomy History of cholecystectomy Family History Father , age 57 of an NH. Heart disease Myocardial infarction Mother , age 67 of a ruptured neck vessel Sudden Other Depression Lung disease No pertinent family history Denies family history of Ovarian cancer Prostate cancer Breast cancer Colorectal cancer Social History Smoking Status: Former smoker Tobacco Type: Cigarettes Age Started Using Tobacco: 14; Age Quit Using Tobacco: 18; Cigarettes Per Day: 40; Second Hand Exposure: No; Do You Dip or Chew Tobacco: No; Hx Alcohol Use: No Hx Substance Use: No Preferred Language: Kyrgyz Communication Ability: Effective Visual Impairment: No Limitations Hearing Ability: Normal Equine Pharmacology Technician Required: No Beliefs That Will Affect Care: None marital status: Current Living Situation: Homeless Current Living Situation Comment: Lives at home with current occupational status: unemployed How many Children do You have: 0 Feels Safe at Home: Yes Childhood Exposure to Second-Hand Smoke: Yes Dental Care, Regularly: Yes Physical Activity Frequency: Does not Exercise Seatbelt Use: never Sunscreen Use: No Assistive Devices: Cane, Oxygen - Continuous, Scooter/Electric Scooter and Walker Physical Exam Physical Exam: General: A&Ox3. NAD. Cooperative. HEENT: Atraumatic, normocephalic. Hearing grossly intact. Poor dentition. Pulm: diminished, trace end expiratory wheeze on forced expiration in the right upper field otherwise no wheezing. Diminished with some crackles in the dependent obrien bilaterally. Symmetrical chest rise. On BiPAP Cardiac: RRR, -mrg. Radial pulses intact and symmetrical. +JVD Abdominal: Obese, nontender, nondistended, soft. BS present. +B/l ERNIE. Results & Data Results & Data Vital Signs (Past 12 Hours) Vital Signs Temp Pulse Resp BP Pulse Ox O2 Del Method FiO2 11/21/23 17:48 88 153/107 H 98 BiPAP 11/21/23 17:34 102 H 11/21/23 17:30 100 H 170/122 H 97 11/21/23 17:27 105 H 22 99 50 11/21/23 16:52 BiPAP 50 11/21/23 16:52 36.8 C 106 H 38 H 180/129 H 99 BiPAP 50 PG Care Time/CCT Total # of Minutes Spent Total Time Spent with Patient: Total time spent is greater than 50% in coordination of care (as documented) at patient's floor/unit and/or counseling patient: Coding Level of Care Code 96800 INT INP/OBS CARE 3/75MIN Diagnoses Acute on chronic HFrEF (heart failure with reduced ejection fraction) I50.23 Uncontrolled type 2 diabetes mellitus with hyperglycemia E11.65 Glycemic state: with hyperglycemia Chronic obstructive pulmonary disease, unspecified COPD type J44.9 COPD type: unspecified COPD Chronic dental pain K08.9; G89.29 Morbid obesity with BMI of 50.0-59.9, adult E66.01; Z68.43 (2) Diabetes mellitus type II, uncontrolled Glycemic state: with hyperglycemia Qualified Code(s): E11.65 - Type 2 diabetes mellitus with hyperglycemia (3) COPD (chronic obstructive pulmonary disease) COPD type: unspecified COPD Qualified Code(s): J44.9 - Chronic obstructive pulmonary disease, unspecified
[2023-11-21] MEDS: RAPID SEQUENCE INDUCTION BAG ONE (18:42)
[2023-11-21 18:43] LABS: Influenza A virus by PCR Negative (Neg); Influenza B virus by PCR Negative (Neg); RSV by PCR Negative (Neg); SARS CoV2 RNA(COVID-19) Ceph NEGATIVE (Negative)
[2023-11-21] MEDS ORDERED: TRIAMCINOLONE ACET 0.025% CR 15 GM TUBE TOP PRN (21:01)
[2023-11-21] MEDS ORDERED: ALBUTEROL HFA 8 GM INHALER INH PRN (21:01)
[2023-11-21] MEDS ORDERED: PHARMACY GLYCEMIC MGMT CONSULT PRN (21:01)
[2023-11-21] MEDS ORDERED: NITROGLYCERIN SL 0.4 MG/TAB TAB SL PRN (21:01)
[2023-11-21] MEDS ORDERED: GLUCAGON FOR INJ 1 MG VIAL SQ PRN (21:01)
[2023-11-21] MEDS ORDERED: NYSTATIN POWDER 15GM BTL EXT PRN (21:01)
[2023-11-21] MEDS ORDERED: GLUCOSE 40% GEL 15 GM TUBE PO PRN (21:01)
[2023-11-21] MEDS ORDERED: GLUCOSE 10 TAB/TUBE PO PRN (21:01)
[2023-11-21] MEDS ORDERED: hydrOXYzine HCl 25 MG TAB PO PRN (21:01)
[2023-11-21] MEDS ORDERED: ALBUTEROL 0.083% NEBU SOLN 3 ML VIAL INH PRN (21:01)
[2023-11-21] MEDS ORDERED: TROLAMINE SALICYLATE 10% CRM 255 APPLN/85 GM TUBE EXT PRN (21:01)
[2023-11-21] MEDS ORDERED: CARBOHYDRATES FOR HYPOGLYCEMIA PO PRN (21:01)
[2023-11-21] MEDS ORDERED: DEXTROSE 50% 50 ML SYRINGE IV PRN (21:01)
[2023-11-21] MEDS ORDERED: ACETAMINOPHEN 325 MG TAB PO PRN (21:01)
[2023-11-21] MEDS: POTASSIUM CHLORIDE CRTAB 20 MEQ TABCR PO SCH (22:24)
[2023-11-21] MEDS: ENOXAPARIN INJ 40 MG/0.4 ML SYR SQ SCH (22:25)
[2023-11-21] MEDS: INSULIN ASPART PER UNIT CHARGE SC SCH (22:25)
[2023-11-21] MEDS: METOPROLOL SUCC 50MG EXT REL TAB PO SCH (22:25)
[2023-11-21] MEDS: VALSARTAN/SACUBITRIL 103/97MG TAB PO SCH (22:26)
[2023-11-21] MEDS: LANTUS PER UNIT CHARGE SQ SCH (22:26)
--- NOTE | 2023-11-22 00:06 | Emergency Department Note ---
Impression & Plan CHF (congestive heart failure), Hypoxic respiratory failure ED Provider Note CHIEF COMPLAINT: Respiratory distress HISTORY OF PRESENT ILLNESS: This 47-year-old male patient with past medical history of nonischemic cardiomyopathy, congestive heart failure, V. tach, AICD, intellectual disability, medical noncompliance, type 2 diabetes, chronic anticoagulation, hypertension, diabetes, hypomagnesemia, respiratory failure, dental abscess, morbid obesity presents to the emergency department with complaints of respiratory distress. The patient apparently has been on increased doses of torsemide at home Per cardiology. The patient states he took 1 this morning and has been urinating quite frequently. He has had increased difficulty breathing for most of the day. Upon EMS arrival, the patient was hypoxic and placed on BiPAP. Patient denies any significant chest pain, fever, vomiting REVIEW OF SYSTEMS: A review of systems was performed with positives and pertinent negatives listed in the history of present illness. 10 systems were reviewed and are otherwise negative. ALLERGIES: see below MEDICATIONS: see below PMH: see below SOCIAL HISTORY: see below DDx: congestive heart failure, acute myocardial infarction, cardiac arrhythmia, electrolyte abnormality, acute coronary syndrome, PE, pneumonia, pleural effusion among others. PHYSICAL EXAM: Vital signs reviewed. General: Acute on chronically ill-appearing 47-year-old male, no significant distress. HEENT: No scleral icterus, PERRLA, neck supple. Moist mucous membranes Cardiovascular: Regular rate and rhythm, no extra sounds. Pulmonary: increased work of breathing, diminished breath sounds bilaterally with crackles appreciated. On BiPAP. Abdomen: Soft, obese, nontender, nondistended, positive bowel sounds. Musculoskeletal: Atraumatic, no peripheral edema. Neurologic: Patient awake alert and oriented x 3, speech is clear Skin: Warm, dry, no rash EMERGENCY DEPARTMENT COURSE/MDM: This patient was evaluated and appeared to be in no significant distress. He arrives on BiPAP and doing fairly well. He was oxygenating and fairly comfortable. Chest x-ray was performed and reveals evidence of pulmonary edema. Patient was given 40 mg of IV Lasix and 1 inch of Nitropaste to the anterior chest wall. He was placed on the inside wireman and noted to be in a normal sinus rhythm at 100 bpm. EKG reveals sinus rhythm with premature atrial contractions. Patient's laboratory work reveals a hypomagnesemia at 1.3. Patient was repleted with 2 g of IV magnesium. Upon review of the patient's records, he is to be using torsemide. He has had very similar presentations to this in the past. Patient began to diurese and stated he urinated x 3 in the ED. He remained stable on the BiPAP and the case was discussed with the hospitalist service for further evaluation and management. MONITORING: An order for cardiac monitoring was placed and the patient is noted to be in a normal sinus rhythm at 100 beats per minute. RADIOLOGY: Chest x-ray to my interpretation reveals cardiomegaly and pulmonary edema. Please see radiology's over read. EKG: To my interpretation reveals a sinus tachycardia with premature atrial contractions. Left atrial enlargement, left axis deviation, incomplete right bundle branch block, QTc of 521. DISPOSITION: Admission I have personally spent greater than 45 minutes of critical care time in the direct management of this patient. This includes bedside care, interpretation of diagnostic studies, and testing, discussion with consultants, patient, and family members, and other required patient management activities. This 45 minutes is in excess of all separately billable procedures. Past Med/Surg History Problem List (Updated 11/24/23 @ 22:13 by Yaritza Rosa MD) Hypoxic respiratory failure (Acute) CHF (congestive heart failure) (Acute) Subperiosteal abscess of jaw Chronic dental pain Acute on chronic respiratory failure with hypoxemia Periapical abscess Respiratory failure (Acute) Pulmonary edema (Acute) Acute on chronic HFrEF (heart failure with reduced ejection fraction) Hypomagnesemia (Acute) Acute congestive heart failure (Acute) Type 2 diabetes mellitus with peripheral neuropathy Type 2 diabetes mellitus with obesity Obstructive sleep apnea Diabetic peripheral neuropathy Non-proliferative diabetic retinopathy, both eyes Uncontrolled diabetes mellitus with hyperglycemia COPD (chronic obstructive pulmonary disease) (Chronic) 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 Difficult to manage. Integrated into heart failure clinic. Frequent admissions for heart failure exacerbations. Echo (05/31) EF=25-30% with mod to severe global hypokinesis, basal kelsi-septal akinetic wall, LVH, RVSP elevated at 30-40mmHg, and mod dilated ascending aorta. Managed medically with ASA + BB + ARB/Neprilysin inhibitor (Entresto) + high dose furosemide (160mg BID) + metolazone (3x weekly). Considering ICD given EF. NICM (nonischemic cardiomyopathy) (Acute) Pt admitted for elective ICD. Underwent procedure without any complications monitored over night and discharged home. Chronic respiratory failure AICD (automatic cardioverter/defibrillator) present Normocytic anemia Hypertension (Chronic) Poor intravenous access Morbid obesity with BMI of 50.0-59.9, adult Chronic anticoagulation Diabetes mellitus type II, uncontrolled (Chronic) Urinary bladder incontinence Hx of local infection of skin and subcutaneous tissue Ambulatory dysfunction (Chronic) Recurrent infection of skin Pulmonary nodule V tach (Acute) HFrEF (heart failure with reduced ejection fraction) Hemoptysis (Acute) Intellectual disability Medical non-compliance Vitamin D deficiency Medical History Respiratory failure Pulmonary edema Small bowel obstruction Housing instability, currently housed, at risk for homelessness Hearing loss of both ears Nonproliferative retinopathy due to secondary diabetes Dilatation of thoracic aorta Iliac aneurysm Vitamin D insufficiency Previously deficient, taking Vit D supplementation Umbilical hernia Lung nodule Fatty liver Surgical History H/O oral surgery History of carpal tunnel surgery S/P tonsillectomy History of cholecystectomy Family History Father , age 57 of an [place]. Heart disease Myocardial infarction Mother , age 67 of a ruptured neck vessel Sudden Other Depression Lung disease No pertinent family history Denies family history of Ovarian cancer Prostate cancer Breast cancer Colorectal cancer Social History Smoking Status: Former smoker Tobacco Type: Cigarettes Age Started Using Tobacco: 14; Age Quit Using Tobacco: 18; Cigarettes Per Day: 40; Second Hand Exposure: No; Do You Dip or Chew Tobacco: No; Hx Alcohol Use: No Hx Substance Use: No Preferred Language: Monegasque Communication Ability: Effective Visual Impairment: No Limitations Hearing Ability: Normal Complex Care Nurse Practitioner Required: No Beliefs That Will Affect Care: None marital status: Current Living Situation: Spouse Current Living Situation Comment: Lives at home with current occupational status: unemployed How many Children do You have: 0 Feels Safe at Home: Yes Childhood Exposure to Second-Hand Smoke: Yes Dental Care, Regularly: Yes Physical Activity Frequency: Does not Exercise Seatbelt Use: never Sunscreen Use: No Assistive Devices: Oxygen - Continuous, Walker and Wheelchair Allergies Allergies Allergy/AdvReac Type Severity Reaction Status Date / Time albuterol Allergy Severe proair Verified 11/20/23 14:11 "trouble taking breaths" ceftriaxone Allergy Severe SHORTNESS Verified 11/20/23 14:11 OF BREATH lidocaine Allergy Severe SHORTNESS Verified 11/20/23 14:11 OF BREATH, diaphoretic, hives mushroom Allergy Severe Anaphylaxis Unverified 11/20/23 14:11 procaine Allergy Severe SHORTNESS Verified 11/20/23 14:11 OF BREATH, diaphoretic, hives amoxicillin Allergy Intermediate HIVES/FACIAL Verified 11/20/23 14:11 SWELLING clavulanic acid Allergy Intermediate HIVES/FACIAL Verified 11/20/23 14:11 SWELLING lisinopril Allergy Intermediate HIVES Verified 11/20/23 14:11 shellfish derived Allergy Unknown Unknown Verified 11/20/23 14:11 acetaminophen AdvReac Mild NAUSEA Verified 11/20/23 14:11 Fish Containing Products AdvReac Unknown Unknown Verified 11/20/23 14:11 Home Meds Home Medications Medication Instructions Recorded Confirmed nitroglycerin 0.4 mg sublingual 0.4 mg sublingual UD PRN Chest Pain 04/24/19 11/21/23 tablet (Nitrostat) aspirin 81 mg tablet,delayed 81 mg PO QAM 06/16/21 11/21/23 release (Neisha Low Dose Aspirin) albuterol sulfate 2.5 mg/3 mL 2.5 mg inhalation Q6H PRN 12/02/21 11/21/23 (0.083 %) solution for nebulization Shortness Of Breath Or Wheezing budesonide 0.25 mg/2 mL suspension 0.25 mg inhalation DAILY PRN 09/15/22 11/21/23 for nebulization Shortness Of Breath albuterol sulfate 90 mcg/actuation 1 inh inhalation QID PRN Shortness 10/12/23 11/21/23 aerosol inhaler Of Breath Or Wheezing nystatin 100,000 unit/gram topical 1 applic topical BID PRN Skin 10/12/23 11/21/23 powder Irritation insulin glargine 100 unit/mL (3 65 unit subcut HS 11/03/23 11/21/23 mL) subcutaneous pen (Lantus Solostar U-100 Insulin) lidocaine 5 % topical patch 1 patch topical DAILY PRN Pain 09/21/24 10/09/24 Previous Rx's Medication Instructions Recorded metoprolol succinate 100 mg 100 mg PO BID #60 tabs 02/21/21 tablet,extended release 24 hr sacubitril 97 mg-valsartan 103 mg 1 tab PO BID #60 tabs 02/21/21 tablet (Entresto) blood-glucose meter (OneTouch #1 ea 10/12/22 Verio Flex Meter) lancets 30 gauge (OneTouch Delica #100 ea 10/12/22 Plus Lancet) Symbicort 160 mcg-4.5 2 inh inhalation BID #3 Inhalers 11/14/22 mcg/actuation HFA aerosol inhaler (budesonide-formoterol) blood sugar diagnostic (OneTouch #100 ea 01/17/23 Verio test strips) flash glucose scanning reader #1 ea 02/09/23 (FreeStyle Karla 2 [place]) flash glucose sensor (FreeStyle #2 ea 02/09/23 Karla 2 Sensor kit) pen needle, diabetic 31 gauge x #100 ea 02/16/23 5/16" (Comfort EZ Pen [place]) Oxygen Home #5 L 04/01/23 atorvastatin 10 mg tablet 10 mg PO DAILY #90 tabs 04/19/23 torsemide 100 mg tablet 100 mg PO BID #180 tabs 04/19/23 isosorbide mononitrate 30 mg 60 mg (2 x 30 mg) PO DAILY #90 tabs 05/14/23 tablet,extended release 24 hr hydroxyzine HCl 25 mg tablet 25 mg PO TID PRN itching #90 tabs 05/31/23 triamcinolone acetonide 0.025 % 1 applic topical TID PRN rash #454 05/31/23 topical cream grams blood-glucose meter,continuous #1 ea 09/03/23 (FreeStyle Karla 3 [place]) blood-glucose sensor (FreeStyle #2 ea 09/03/23 Karla 3 Sensor device) tirzepatide 5 mg/0.5 mL 5 mg (0.5 mL) subcut WK #2 mL 11/01/23 subcutaneous pen injector trolamine salicylate 10 % topical 1 applic EXT BID PRN left sided 11/06/23 cream (Myoflex) neck pain #35.4 grams Results & Data (ED) Vital Signs Vital Signs - 24 hr 11/21/23 16:52 11/21/23 16:52 11/21/23 17:27 Temperature 36.8 C Temperature Source Axillary Pulse Rate 106 H 105 H Pulse Rate [Apical] Pulse Rate from SpO2 Sensor Pulse Rhythm Pulse Rhythm [Apical] Pulse Strength [Apical] Respiratory Rate 38 H 22 Respiratory Effort / Characteristics Accessory Muscle Use Labored Pursed Lip Accessory Muscle Use Labored Nasal Flaring Pursed Lip Short of Breath Spontaneous Respiratory Depth Shallow Shallow Respiratory Pattern Tachypnea Tachypnea Regular Blood Pressure 180/129 H Blood Pressure [Right Arm] Blood Pressure Mean 146 Blood Pressure Mean [Right Arm] Blood Pressure Position [Right Arm] Pulse Oximetry 99 99 Oxygen Delivery Method BiPAP BiPAP Fraction of Inspired Oxygen 50 50 50 SaO2/FiO2 Ratio 198 Sepsis Recent Fever Within 48 Hours No Sepsis New/Unexplained Change in Mental Status No Sepsis Action Taken by Nursing Physician Notified 11/21/23 17:30 11/21/23 17:34 11/21/23 17:48 Temperature Temperature Source Pulse Rate 100 H 102 H 88 Pulse Rate [Apical] Pulse Rate from SpO2 Sensor 103 H 88 Pulse Rhythm Pulse Rhythm [Apical] Pulse Strength [Apical] Respiratory Rate Respiratory Effort / Characteristics Respiratory Depth Respiratory Pattern Blood Pressure 170/122 H 153/107 H Blood Pressure [Right Arm] Blood Pressure Mean 138 122 Blood Pressure Mean [Right Arm] Blood Pressure Position [Right Arm] Pulse Oximetry 97 98 Oxygen Delivery Method BiPAP Fraction of Inspired Oxygen SaO2/FiO2 Ratio Sepsis Recent Fever Within 48 Hours Sepsis New/Unexplained Change in Mental Status Sepsis Action Taken by Nursing 11/21/23 18:30 11/21/23 18:36 11/21/23 18:51 Temperature Temperature Source Pulse Rate 107 H 86 77 Pulse Rate [Apical] Pulse Rate from SpO2 Sensor 146 H 86 78 Pulse Rhythm Pulse Rhythm [Apical] Pulse Strength [Apical] Respiratory Rate 24 Respiratory Effort / Characteristics Respiratory Depth Respiratory Pattern Blood Pressure 169/125 H Blood Pressure [Right Arm] Blood Pressure Mean 139 Blood Pressure Mean [Right Arm] Blood Pressure Position [Right Arm] Pulse Oximetry 97 99 98 Oxygen Delivery Method Fraction of Inspired Oxygen SaO2/FiO2 Ratio Sepsis Recent Fever Within 48 Hours Sepsis New/Unexplained Change in Mental Status Sepsis Action Taken by Nursing 11/21/23 19:00 11/21/23 19:00 11/21/23 19:11 Temperature Temperature Source Pulse Rate 74 Pulse Rate [Apical] 81 Pulse Rate from SpO2 Sensor Pulse Rhythm Regular Pulse Rhythm [Apical] Regular Pulse Strength [Apical] Normal Respiratory Rate 24 20 Respiratory Effort / Characteristics Spontaneous Respiratory Depth Shallow Respiratory Pattern Regular Blood Pressure 145/114 H Blood Pressure [Right Arm] 145/114 H Blood Pressure Mean 116 Blood Pressure Mean [Right Arm] 124 Blood Pressure Position [Right Arm] Sitting Pulse Oximetry 98 96 Oxygen Delivery Method BiPAP BiPAP Fraction of Inspired Oxygen 50 SaO2/FiO2 Ratio 196 Sepsis Recent Fever Within 48 Hours Sepsis New/Unexplained Change in Mental Status Sepsis Action Taken by [facility] Medications Current Medication List: was personally reviewed by me Laboratory Data Attestation: I reviewed the patient's lab results. 11/23/23 05:30 11/23/23 05:30 Lab Results 11/21/23 11/21/23 11/21/23 Range/Units 17:20 17:25 17:31 WBC 8.82 (4.8-10.8) K/ul RBC 5.34 (4.70-6.10) M/uL Hgb 15.5 (14.0-18.0) g/dl POC Hgb 16.3 (14.0-18.0) g/dl Hct 47.0 (42.0-52.0) % POC Hct 48 (42-52) % MCV 88.0 (80.0-100.0) fL MCH 29.0 (25.0-34.0) pg MCHC 33.0 (32.0-36.0) g/dL RDW Std Deviation 50.1 H (36.4-46.3) fL RDW Coeff of Zoltan 15.7 H (11.5-14.5) % Plt Count 155 (130-400) K/uL MPV 10.5 (9.4-12.4) fL Immature Gran % (Auto) 0.5 % Neut % (Auto) 77.6 % Lymph % (Auto) 14.2 % Saline % (Auto) 6.8 % Eos % (Auto) 0.6 % Baso % (Auto) 0.3 % Neut # (Auto) 6.85 H (1.40-6.50) K/uL Lymph # (Auto) 1.25 (1.20-3.40) K/uL Saline # (Auto) 0.60 H (0.11-0.59) K/uL Eos # (Auto) 0.05 (0.00-0.50) K/uL Baso # (Auto) 0.03 (0.00-0.20) K/uL Immature Gran # (Auto) 0.04 (0.01-0.20) K/uL PT 11.5 (9.0-12.0) Seconds INR 1.1 (0.9-1.1) APTT 29 (21-31) Seconds PTT Ratio 1.1 POC Sodium 141 (135-144) mmol/L Sodium 140 (136-145) mmol/L POC Potassium 3.8 (3.3-5.0) mmol/L Potassium 3.8 (3.5-5.1) mmol/L POC Chloride 105 (101-112) mmol/L Chloride 107 (98-107) mmol/L Carbon Dioxide 23 (21-32) mmol/L POC Total CO2 22 L (24-31) mmol/L Anion Gap 10 (3-11) POC Anion Gap 18.0 (16-25) mmol/L POC BUN 11 (7-18) mg/dl BUN 11 (6-23) mg/dl Creatinine 0.94 (0.6-1.4) mg/dl POC Creatinine 1.0 (0.6-1.3) mg/dl Est Cr Clr Drug Dosing Not Reportable eGFR 101.25 BUN/Creatinine Ratio 11.7 (10-20) Glucose 257 H (70-99(Fasting)) mg/dl POC Glucose (other) 252 H (70-99) mg/dl Calcium 8.9 (8.6-10.3) mg/dl POC Ioniz Calcium [place] 1.17 (1.12-1.32) mmol/l Magnesium 1.4 L (1.7-2.4) mg/dl Total Bilirubin 1.7 H (0.2-1.0) mg/dl AST 16 (13-39) U/L ALT 15 (7-52) U/L Alkaline Phosphatase 89 (34-104) U/L Troponin I High Sens 18.7 (0-20) pg/ml Total Protein 7.3 (6.0-8.3) gm/dl Albumin 4.0 (3.4-5.0) gm/dl Globulin 3.3 (2.5-4.0) gm/dl Albumin/Globulin Ratio 1.2 (0.9-2) Urine Color Urine Appearance (Clear) Urine pH (4.5-7.5) Ur Specific [place] (1.000-1.030) Urine Protein (Negative) Urine Glucose (UA) (Negative) Urine Ketones (Negative) Urine Blood (Negative) Urine Nitrite (Negative) Urine Bilirubin (Negative) Urine Urobilinogen (Negative) Ur Leukocyte Esterase (Negative) Urine WBC (Auto) (0-5) /hpf Urine RBC (Auto) (0-2) /hpf U Hyaline Cast (Auto) (0-2) /lpf U Epithel Cells (Auto) (0-2) /hpf Urine Bacteria (Auto) (None Seen) SARS-CoV-2 (PCR) NEGATIVE (Negative) Influenza Type A (PCR) Negative (Neg) Influenza Type B (PCR) Negative (Neg) RSV (RT-PCR) Negative (Neg) 11/21/23 Range/Units 17:42 WBC (4.8-10.8) K/ul RBC (4.70-6.10) M/uL Hgb (14.0-18.0) g/dl POC Hgb (14.0-18.0) g/dl Hct (42.0-52.0) % POC Hct (42-52) % MCV (80.0-100.0) fL MCH (25.0-34.0) pg MCHC (32.0-36.0) g/dL RDW Std Deviation (36.4-46.3) fL RDW Coeff of Zoltan (11.5-14.5) % Plt Count (130-400) K/uL MPV (9.4-12.4) fL Immature Gran % (Auto) % Neut % (Auto) % Lymph % (Auto) % Saline % (Auto) % Eos % (Auto) % Baso % (Auto) % Neut # (Auto) (1.40-6.50) K/uL Lymph # (Auto) (1.20-3.40) K/uL Saline # (Auto) (0.11-0.59) K/uL Eos # (Auto) (0.00-0.50) K/uL Baso # (Auto) (0.00-0.20) K/uL Immature Gran # (Auto) (0.01-0.20) K/uL PT (9.0-12.0) Seconds INR (0.9-1.1) APTT (21-31) Seconds PTT Ratio POC Sodium (135-144) mmol/L Sodium (136-145) mmol/L POC Potassium (3.3-5.0) mmol/L Potassium (3.5-5.1) mmol/L POC Chloride (101-112) mmol/L Chloride (98-107) mmol/L Carbon Dioxide (21-32) mmol/L POC Total CO2 (24-31) mmol/L Anion Gap (3-11) POC Anion Gap (16-25) mmol/L POC BUN (7-18) mg/dl BUN (6-23) mg/dl Creatinine (0.6-1.4) mg/dl POC Creatinine (0.6-1.3) mg/dl Est Cr Clr Drug Dosing eGFR BUN/Creatinine Ratio (10-20) Glucose (70-99(Fasting)) mg/dl POC Glucose (other) (70-99) mg/dl Calcium (8.6-10.3) mg/dl POC Ioniz Calcium [place] (1.12-1.32) mmol/l Magnesium (1.7-2.4) mg/dl Total Bilirubin (0.2-1.0) mg/dl AST (13-39) U/L ALT (7-52) U/L Alkaline Phosphatase (34-104) U/L Troponin I High Sens (0-20) pg/ml Total Protein (6.0-8.3) gm/dl Albumin (3.4-5.0) gm/dl Globulin (2.5-4.0) gm/dl Albumin/Globulin Ratio (0.9-2) Urine Color Yellow Urine Appearance Clear (Clear) Urine pH 6.0 (4.5-7.5) Ur Specific [place] 1.006 (1.000-1.030) Urine Protein Trace H (Negative) Urine Glucose (UA) Negative (Negative) Urine Ketones Negative (Negative) Urine Blood Negative (Negative) Urine Nitrite Negative (Negative) Urine Bilirubin Negative (Negative) Urine Urobilinogen Negative (Negative) Ur Leukocyte Esterase Negative (Negative) Urine WBC (Auto) 0-5 (0-5) /hpf Urine RBC (Auto) 0-2 (0-2) /hpf U Hyaline Cast (Auto) 0-2 (0-2) /lpf U Epithel Cells (Auto) 0-2 (0-2) /hpf Urine Bacteria (Auto) None Seen (None Seen) SARS-CoV-2 (PCR) (Negative) Influenza Type A (PCR) (Neg) Influenza Type B (PCR) (Neg) RSV (RT-PCR) (Neg) Administered Medications Discontinued Medications Aspirin (Aspirin 81 Mg Ectab) 81 mg PO QAM [facility] Stop: 12/22/23 08:59 Last Admin: 11/23/23 11:29 Dose: 81 mg Documented By: [facility] Admin: 11/22/23 09:00 Dose: 81 mg Documented By: [facility] Atorvastatin Calcium (Atorvastatin 10 Mg Tab) 10 mg PO DAILY [facility] Stop: 12/22/23 08:59 Last Admin: 11/23/23 11:29 Dose: 10 mg Documented By: [facility] Admin: 11/22/23 08:59 Dose: 10 mg Documented By: [facility] Enoxaparin Sodium (Enoxaparin Inj 40 Mg/0.4 Ml Syr) 40 mg SQ Q12H [facility] Stop: 12/21/23 20:59 Last Admin: 11/23/23 11:30 Dose: Not Given Documented By: [facility] Admin: 11/22/23 21:06 Dose: Not Given Documented By: Admin: 11/22/23 08:59 Dose: 40 mg Documented By: [facility] Admin: 11/21/23 22:25 Dose: 40 mg Documented By: MARCELINO Fluticasone/Vilanterol (Fluticasone/Vilanterol 200/25mcg 14 Puffs/Inhaler) 1 puffs INH DAILY [facility]; Protocol Stop: 12/22/23 08:59 Last Admin: 11/23/23 11:30 Dose: Not Given Documented By: [facility] Admin: 11/22/23 08:59 Dose: Not Given Documented By: [facility] Furosemide (Furosemide 40 Mg/4 Ml Vial) Confirm Administered Dose 40 mg IV .STK- MED ONE Stop: 11/21/23 17:03 Last Admin: 11/21/23 17:20 Dose: Not Given Documented By: MR Furosemide (Furosemide 40 Mg/4 Ml Vial) 40 mg IV ONE ONE Stop: 11/21/23 17:14 Last Admin: 11/21/23 17:19 Dose: 40 mg Documented By: MR Furosemide (Furosemide 40 Mg/4 Ml Vial) 40 mg IV ONE ONE Stop: 11/21/23 18:33 Last Admin: 11/21/23 18:46 Dose: 40 mg Documented By: Furosemide (Furosemide 40 Mg/4 Ml Vial) 80 mg IV [id number] [facility] Stop: 12/22/23 08:59 Last Admin: 11/23/23 11:28 Dose: 80 mg Documented By: Admin: 11/22/23 18:21 Dose: 80 mg Documented By: Admin: 11/22/23 08:59 Dose: 80 mg Documented By: DIONNE Magnesium Sulfate/Dextrose (Magnesium Sulfate / D5w) 1 gm in 100 mls @ 200 mls/hr IV Q30M [facility] Stop: 11/21/23 19:01 Last Infusion: 11/21/23 19:31 Dose: Infused Documented By: Admin: 11/21/23 19:01 Dose: 200 mls/hr Documented By: Infusion: 11/21/23 19:00 Dose: Infused Documented By: Admin: 11/21/23 18:24 Dose: 200 mls/hr Documented By: Magnesium Sulfate/Dextrose (Magnesium Sulfate / D5w) 1 gm in 100 mls @ 50 mls/hr IV ONE ONE Stop: 11/23/23 06:44 Last Infusion: 11/23/23 07:26 Dose: Infused Documented By: Admin: 11/23/23 04:56 Dose: 50 mls/hr Documented By: JUAN Insulin Aspart (Insulin Aspart Per Unit Charge) 0 units SC ACHS [facility] Stop: 12/21/23 21:00 Last Admin: 11/23/23 14:01 Dose: Not Given Documented By: Admin: 11/23/23 07:45 Dose: Not Given Documented By: Admin: 11/22/23 21:07 Dose: 1 units Documented By: JUAN Co-signed By: DAVID Admin: 11/22/23 17:26 Dose: Not Given Documented By: Admin: 11/22/23 13:37 Dose: 12 units Documented By: DIONNE Co-signed By: PK Admin: 11/22/23 08:39 Dose: Not Given Documented By: Admin: 11/21/23 22:25 Dose: Not Given Documented By: MARCELINO Insulin Aspart (Insulin Aspart Per Unit Charge) 0 units SC 0200 ONE Stop: 11/22/23 02:01 Last Admin: 11/22/23 01:51 Dose: Not Given Documented By: MARCELINO Insulin Glargine (Lantus Per Unit Charge) 45 units SQ HS [facility] Stop: 12/21/23 21:00 Last Admin: 11/22/23 21:07 Dose: 45 units Documented By: JUAN Co-signed By: DAVID Admin: 11/21/23 22:26 Dose: 45 units Documented By: MARCELINO Co-signed By: [facility] Isosorbide Mononitrate (Isosorbide Saline Extended Rel 60 Mg Tabcr) 60 mg PO DAILY [facility] Stop: 12/22/23 08:59 Last Admin: 11/23/23 11:30 Dose: 60 mg Documented By: Admin: 11/22/23 09:00 Dose: 60 mg Documented By: LUCAS Magnesium Oxide (Magnesium Oxide 400 Mg Tab) 400 mg PO QAM [facility] Stop: 12/22/23 08:59 Last Admin: 11/22/23 08:59 Dose: 400 mg Documented By: LUCAS Magnesium Oxide (Magnesium Oxide 400 Mg Tab) 400 mg PO BID [facility] Stop: 12/22/23 20:59 Last Admin: 11/23/23 11:29 Dose: 400 mg Documented By: Admin: 11/22/23 21:05 Dose: 400 mg Documented By: JUAN Metoprolol Succinate (Metoprolol Succ 50mg Ext Rel Tab) 100 mg PO BID [facility] Stop: 12/21/23 21:00 Last Admin: 11/23/23 11:30 Dose: 100 mg Documented By: Admin: 11/22/23 21:05 Dose: 100 mg Documented By: Admin: 11/22/23 08:59 Dose: 100 mg Documented By: Admin: 11/21/23 22:25 Dose: 100 mg Documented By: MARCELINO Miscellaneous (Rapid Sequence Induction Bag) Confirm Administered Dose 1 each N/A .STK-MED ONE Stop: 11/21/23 17:02 Last Admin: 11/21/23 18:42 Dose: Not Given Documented By: MR Naproxen (Naproxen 250 Mg Tab) 250 mg PO NOW STA Stop: 11/23/23 04:30 Last Admin: 11/23/23 04:51 Dose: 250 mg Documented By: JUAN Nitroglycerin (Nitroglycerin 2% Ointment 30gm Tube) Confirm Administered Dose 18 inch EXT .STK-MED ONE Stop: 11/21/23 17:04 Last Admin: 11/21/23 17:20 Dose: Not Given Documented By: Nitroglycerin (Nitroglycerin 2% Ointment 30gm Tube) 1 inch EXT NOW STA Stop: 11/21/23 17:15 Last Admin: 11/21/23 17:19 Dose: 1 inch Documented By: Potassium Chloride (Potassium Chloride Crtab 20 Meq Tabcr) 20 meq PO BID [facility] Stop: 12/21/23 21:00 Last Admin: 11/23/23 11:31 Dose: 20 meq Documented By: Admin: 11/22/23 21:04 Dose: 20 meq Documented By: Admin: 11/22/23 09:04 Dose: 20 meq Documented By: Admin: 11/21/23 22:24 Dose: 20 meq Documented By: MARCELINO Potassium Chloride (Potassium Chloride Crtab 20 Meq Tabcr) 20 meq PO NOW STA Stop: 11/23/23 04:46 Last Admin: 11/23/23 04:56 Dose: 20 meq Documented By: JUAN Potassium Chloride (Potassium Chloride Crtab 20 Meq Tabcr) 40 meq PO NOW STA Stop: 11/23/23 08:14 Last Admin: 11/23/23 11:29 Dose: 40 meq Documented By: LUCAS Sacubitril/Valsartan (Valsartan/Sacubitril 103/97mg Tab) 1 tab PO BID SUKHWINDER Stop: 12/21/23 21:00 Last Admin: 11/23/23 11:29 Dose: 1 tab Documented By: Admin: 11/22/23 21:04 Dose: 1 tab Documented By: Admin: 11/22/23 08:59 Dose: 1 tab Documented By: [facility] Admin: 11/21/23 22:26 Dose: 1 tab Documented By: MARCELINO Imaging Data Radiologist's Impression: Chest X-Ray 11/21/23 17:13 XR chest 1V portable CLINICAL HISTORY: Dyspnea TECHNIQUE: Single frontal radiograph of the chest was obtained. Comparison: Comparison is made to chest radiograph 11/03/2023 FINDINGS: No lines and tubes are seen. Cardiomegaly is noted. There is prominence and cephalization of the vasculature with Larissa B lines seen. Bilateral lower lung airspace opacities are seen. Possible small bilateral pleural effusions. IMPRESSION: 1. Cardiomegaly and moderate pulmonary edema. This is similar to prior exam. 2. Bilateral lower lung opacities which may represent alveolar edema or aspiration/pneumonia. 3. Possible small bilateral pleural effusions. ACT 112: Negative or not required by law. Electronically signed by: Trey Coronel M.D. 11/21/2023 5:36 PM Discharge Plan Visit Data Chief Complaint: Respiratory Distress Stated Complaint: RESP. DESTRESS ED Provider: Yaritza Rosa Discharge Problem: CHF (congestive heart failure), Hypoxic respiratory failure Patient Disposition: Admitted As Inpatient Discharge Instructions Interventions: ED Discharge Assessment Last Done: 11/21/23 20:33 Discharge Problem: CHF (congestive heart failure) Qualifiers: Heart failure type: unspecified Heart failure chronicity: acute on chronic Q ualified Code(s): I50.9 - Heart failure, unspecified Hypoxic respiratory failure Qualifiers: Chronicity: acute on chronic Qualified Code(s): J96.21 - Acute and chronic respiratory failure with hypoxia
[2023-11-22] MEDS: INSULIN ASPART PER UNIT CHARGE SC ONE (01:51)
[2023-11-22 06:12] LABS: Basophils # (auto) 0.02 K/uL (0.00-0.20); Basophils % (auto) 0.2 %; Eosinophils # (auto) 0.13 K/uL (0.00-0.50); Eosinophils % (auto) 1.3 %; Hematocrit (blood only) 43.7 % (42.0-52.0); Hemoglobin 14.8 g/dl (14.0-18.0); Immature Granulocytes # (auto) 0.05 K/uL (0.01-0.20); Immature Granulocytes % (auto) 0.5 %; Lymphocytes # (auto) 1.87 K/uL (1.20-3.40); Lymphocytes % (auto) 19.4 %; Mean Corpuscular Hemoglobin 29.4 pg (25.0-34.0); Mean Corpuscular Hgb Conc 33.9 g/dL (32.0-36.0); Mean Corpuscular Volume 86.7 fL (80.0-100.0); Mean Platelet Volume 10.5 fL (9.4-12.4); Monocytes # (auto) 0.69 K/uL (0.11-0.59); Monocytes % (auto) 7.2 %; Neutrophils # (auto) 6.87 K/uL (1.40-6.50); Neutrophils % (auto) 71.4 %; Platelet Count 141 K/uL (130-400); RDW Coefficient of Variation 15.6 % (11.5-14.5); RDW Standard Deviation 49.1 fL (36.4-46.3); Red Blood Count 5.04 M/uL (4.70-6.10); White Blood Count 9.63 K/ul (4.8-10.8)
[2023-11-22 06:25] LABS: BUN Creatinine Ratio 12.4 (10-20); Calcium 8.7 mg/dl (8.6-10.3); Creatinine Clr Calc Pharmacy 125.4 ml/min; Potassium 3.7 mmol/L (3.5-5.1)
[2023-11-22] MEDS: FLUTICASONE/VILANTEROL 200/25MCG 14 PUFFS/INHALER INH SCH (08:59)
[2023-11-22] MEDS: ATORVASTATIN 10 MG TAB PO SCH (08:59)
[2023-11-22] MEDS: MAGNESIUM OXIDE 400 MG TAB PO SCH ×2 (08:59→21:05)
[2023-11-22] MEDS: FUROSEMIDE 40 MG/4 ML VIAL IV SCH (08:59)
[2023-11-22] MEDS: ASPIRIN 81 MG ECTAB PO SCH (09:00)
[2023-11-22] MEDS: ISOSORBIDE MONO EXTENDED REL 60 MG TABCR PO SCH (09:00)
--- NOTE | 2023-11-22 11:16 | Electrocardiogram Report ---
Test Reason : Blood Pressure : */* mmHG Vent. Rate : 112 BPM Atrial Rate : 112 BPM P-R Int : 166 ms QRS Dur : 112 ms QT Int : 382 ms P-R-T Axes : 24 -55 99 degrees QTcB Int : 521 ms Sinus tachycardia Left atrial enlargement Left axis deviation Incomplete right bundle branch block Minimal voltage criteria for LVH, may be normal variant Septal infarct , age undetermined T wave abnormality, consider lateral ischemia Prolonged QT Abnormal ECG When compared with ECG of 03-Nov-2023 20:58, No significant change Confirmed by Rodney Cary ([id number]) on 11/22/2023 11:16:24 AM Referred By: REFERRED SELF Confirmed By: Rodney Cary
--- NOTE | 2023-11-22 14:10 | Pharmacy Report ---
Pharmacy Glycemic Short Note 2 - Date of Service November 22, 2023 - Glycemic Short BSG Results (Last 24 hours): 11/21/23 11/21/23 11/21/23 17:20 17:31 21:25 Glucose 257 H POC Glucose 162 H POC Glucose (other) 252 H 11/22/23 11/22/23 11/22/23 01:48 05:22 08:27 Glucose 155 H POC Glucose 140 H 104 H POC Glucose (other) 11/22/23 12:17 Glucose POC Glucose 129 H POC Glucose (other) OUTPATIENT ANTIDIABETIC REGIMEN: * Lantus 65 units SQ at bedtime * Mounjaro 5mg SQ weekly HbA1c 8.1% on 10/12/23 ASSESSMENT: * 47 year old male admitted 11/20 with acute on chronic heart failure with reduced ejection fraction. * He is a type 2 diabetic who pharmacy was consulted for glycemic management. * Initial BSG on 11/20 was 252mg/dl and at bedtime was 162mg/dl. Home lantus reduced to 45 units and will be continued q HS as fasting BSG this morning was 104mg/dl. * Weight based novolog dosing with stress of 2 started last evening. PLAN FOR INPATIENT GLYCEMIC CONTROL: * Hold outpatient diabetes medications * Basal insulin * Lantus 45 units SQ at bedtime * Bolus insulin * NovoLog per scale ACHS or Q6hrs while NPO * Goal Range: Low 110 mg/dL - High 140 mg/dL * Correction Factor: 15 mg/dL/unit * Nutritional / Prandial insulin per carb ratio of 1 unit per 5 grams CHO consumed
--- NOTE | 2023-11-22 16:03 | Hospitalist Progress Note ---
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 Continue diuresis potassium supplementation. Remains with evidence of volume overload lower extremity edema, JVD, and some crackles on exam although greatly improved from prior Discharge home once at baseline oxygen requirement (2) Diabetes mellitus type II, uncontrolled: Plan: T2DM -Basal 65 units at bedtime daily continued SSI based on basal requirements --> CF 10, CR 5 Goal BSG [id number] Heart healthy/DM2 diet (3) COPD (chronic obstructive pulmonary disease): Plan: COPD -No acute exacerbation on reassess - Nebs PRN for wheezing - Continue Pulmicort MARIELENA - BiPAP HSPRN - Noncompliant at home (4) Chronic dental pain: Plan: HIstory of Periapical Abscesses - Completed outpatient course of antibiotics with clindamycin - Too high risk for general anesthesia/tooth extraction - No fever or leukocytosis currently. No pain on admission. No acute change in management (5) Morbid obesity with BMI of 50.0-59.9, adult: Plan DVT PPx: Lovenox Diet: HH/DM2 Dispo: PCU CODE: FUll Admission and Anticipated Discharge Date Admission Date: November 21, 2023 Subjective Seen at the bedside. He reports he feels significantly better than when he came in, and that his breathing is greatly improved although not yet back at baseline. He is typically on up to 5 L of nasal cannula at base, at morning assessment is still requiring 6+ liters by nasal cannula although vastly improved from prior. Has had over 5 L of diuresis overnight without elevation of creatinine. Patient reports that he is very hungry and has not been eating very well outside of the hospital, other additional complaints. Denies chest pain chest pressure, fever, chills, sweats. No lightheadedness or dizziness. No nausea/vomiting. No abdominal pain Physical Exam Physical Exam: General: A&Ox3. NAD. Cooperative. HEENT: Atraumatic, normocephalic.vision and hearing grossly intact Pulm: Diminished,bibasilar crackles remain present symmetrical chest rise. No increased work of breathing. No respiratory distress. Cardiac: RRR, -mrg. Radial pulses intact and symmetrical. Abdominal: Nontender, nondistended, soft. BS present. Extremities: Bilateral lower extremity pitting edema Results & Data Results & Data Vital Signs (Past 12 Hours) Vital Signs Temp Pulse Pulse Resp BP Pulse Ox O2 Del Method 11/22/23 11:15 36.7 C 77 19 108/74 95 Nasal Cannula 11/22/23 08:00 36.7 C 51 L 19 143/88 H 96 BiPAP 11/22/23 07:46 51 L 16 93 O2 Flow Rate FiO2 11/22/23 11:15 5.0 11/22/23 08:00 11/22/23 07:46 30 PG Care Time/CCT Total # of Minutes Spent Total Time Spent with Patient: Total time spent is greater than 50% in coordination of care (as documented) at patient's floor/unit and/or counseling patient: Coding Level of Care Code 13142 SUB INP/OBS CARE 3/50MIN Diagnoses Acute on chronic HFrEF (heart failure with reduced ejection fraction) I50.23 Uncontrolled type 2 diabetes mellitus with hyperglycemia E11.65 Glycemic state: with hyperglycemia Chronic obstructive pulmonary disease, unspecified COPD type J44.9 COPD type: unspecified COPD Chronic dental pain K08.9; G89.29 Morbid obesity with BMI of 50.0-59.9, adult E66.01; Z68.43 (2) Diabetes mellitus type II, uncontrolled Glycemic state: with hyperglycemia Qualified Code(s): E11.65 - Type 2 diabetes mellitus with hyperglycemia (3) COPD (chronic obstructive pulmonary disease) COPD type: unspecified COPD Qualified Code(s): J44.9 - Chronic obstructive pulmonary disease, unspecified
[2023-11-23] MEDS: NAPROXEN 250 MG TAB PO STA (04:51)
[2023-11-23] MEDS: POTASSIUM CHLORIDE CRTAB 20 MEQ TABCR PO STA ×2 (04:56→11:29)
[2023-11-23] MEDS: MAGNESIUM SULFATE / D5W 1 GM/100 ML BAG IV ONE (04:56)
[2023-11-23 06:27] LABS: Basophils # (auto) 0.03 K/uL (0.00-0.20); Basophils % (auto) 0.4 %; Eosinophils # (auto) 0.25 K/uL (0.00-0.50); Hematocrit (blood only) 44.4 % (42.0-52.0); Hemoglobin 15.3 g/dl (14.0-18.0); Immature Granulocytes # (auto) 0.03 K/uL (0.01-0.20); Immature Granulocytes % (auto) 0.4 %; Lymphocytes # (auto) 2.09 K/uL (1.20-3.40); Lymphocytes % (auto) 25.5 %; Mean Corpuscular Hemoglobin 29.7 pg (25.0-34.0); Mean Corpuscular Hgb Conc 34.5 g/dL (32.0-36.0); Mean Corpuscular Volume 86.2 fL (80.0-100.0); Monocytes # (auto) 0.68 K/uL (0.11-0.59); Monocytes % (auto) 8.3 %; Neutrophils # (auto) 5.13 K/uL (1.40-6.50); Neutrophils % (auto) 62.4 %; Platelet Count 155 K/uL (130-400); RDW Coefficient of Variation 15.1 % (11.5-14.5); RDW Standard Deviation 47.8 fL (36.4-46.3); Red Blood Count 5.15 M/uL (4.70-6.10); White Blood Count 8.21 K/ul (4.8-10.8)
[2023-11-23 06:51] LABS: BUN Creatinine Ratio 17.9 (10-20); Calcium 8.4 mg/dl (8.6-10.3); Creatinine Clr Calc Pharmacy 124.4 ml/min; Magnesium 1.7 mg/dl (1.7-2.4); Potassium 3.3 mmol/L (3.5-5.1)
[2023-11-23 09:11] VITALS: BP 113/74; PULSE 72; RESP 20; TEMP 97.5; O2SAT 99
--- NOTE | 2023-11-23 10:14 | Discharge Summary ---
Date of Service November 23, 2023 Admission HPI Per Admitting Provider Alok is a 47-year-old male with a past history of heart failure with reduced ejection fraction with AICD, type 2 diabetes with neuropathy, chronic respiratory failure, morbid obesity, history of V. tach again with AICD, medical noncompliance/intellectual disability with recent admission 10/2023 for acute on chronic HFrEF who presents to the ER by EMS with respiratory distress on BiPAP with SpO2 87%, worsening edema, and hypertension. A few seen at the bedside. He reports around 5 days he has had worsening leg swelling, shortness of breath, orthopnea, and feeling generally poor. He is not wheezing currently had some wheezing over the last 5 days. Denies fever or chills. Denies nausea/vomiting. Denies stomach pain. He reports he did complete antibiotics for his dental infection, has not had surgery for this. Denies dental pain at time of admission. He reports he took all of his medications this morning. At time bedside assessment he is not short of breath on the BiPAP. He denies chest pain/chest pressure at any point. Medical History: Reviewed Medications: Reviewed Surgical History: Reviewed Family history: Reviewed Allergies: Reviewed Social History: Reviewed Code Status: Full Discharge Data Consultations 11/21/23 18:25 ED Decision to Admit Stat Hospital Course (1) Acute on chronic HFrEF (heart failure with reduced ejection fraction): Alok is a 47-year-old male with a history of heart failure with reduced ejection fraction last EF less than 20%, type 2 diabetes, hypertension, MARIELENA BiPAP dependent intermittently compliant with PPV who presented with acute on chronic congestive heart failure. He responded rapidly to BiPAP and diuresis. On 11/23/2023 patient was at his normal baseline 5 L home oxygen requirements and ambulating independently in the hallway. Did still remain with some volume overload with lower extremity edema, however patient was adamant he needed to return home on 11/22. Additional diuresis for 1 or 2 additional days for total body fluid and past history of readmission was recommended however patient did not wish to remain in the hospital any longer and on shared decision making as he was at his home oxygen requirement is reasonable to discharged home with twice daily diuresis and close follow-up within 1 week. His creatinine was at baseline day of discharge. Patient reports he had been noncompliant with his BiPAP due to getting new tubing however he does currently have his BiPAP, new tubing, and a mask at home which she can use. Expresses an understanding that he must use his BiPAP every night otherwise he could have life-threatening or fatal hypercapnia. Agrees to take his diuretics as directed and will not skip doses, and maintain a low-salt diet when returning home.. Patient was continued on potassium supplementation during admission, slightly low potassium morning of discharge 3.3 which was repleted with an additional 40 mEq of oral potassium To do as outpatient: 1. Continue torsemide 100 mg twice daily 2. Follow-up to PCP within 1 week 3. 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 x-ray: Cardiomegaly with moderate pulmonary edema, bilateral lower opacities which may resent alveolar edema versus aspiration/pneumonia, small bilateral pleural effusions Patient with over 5 L of output overnight Creatinine remained at baseline with diuresis Transition to oral diuretics and discharged (2) Diabetes mellitus type II, uncontrolled: T2DM -Basal 65 units at bedtime daily continued SSI based on basal requirements --> CF 10, CR 5 Goal BSG [id number] Heart healthy/DM2 diet Home antiglycemic's resumed on discharge (3) COPD (chronic obstructive pulmonary disease): COPD -No acute exacerbation on reassess - Nebs PRN for wheezing - Continue Pulmicort MARIELENA - BiPAP HSPRN - Noncompliant at home, patient agrees to use this nightly on discharge (4) Chronic dental pain: HIstory of Periapical Abscesses - Completed outpatient course of antibiotics with clindamycin - Too high risk for general anesthesia/tooth extraction - No fever or leukocytosis currently. No pain on admission. No acute change in management (5) Morbid obesity with BMI of 50.0-59.9, adult: Plan DVT PPx: Lovenox Diet: HH/DM2 Dispo: PCU CODE: FUll Coding Level of Care Code 16658 INP/OBS DISCH >30 MIN Diagnoses Acute on chronic HFrEF (heart failure with reduced ejection fraction) I50.23 Uncontrolled type 2 diabetes mellitus with hyperglycemia E11.65 Glycemic state: with hyperglycemia Chronic obstructive pulmonary disease, unspecified COPD type J44.9 COPD type: unspecified COPD Chronic dental pain K08.9; G89.29 Morbid obesity with BMI of 50.0-59.9, adult E66.01; Z68.43
[2023-11-23] MEDS ORDERED: LANTUS PER UNIT CHARGE SQ SCH ×2 (21:00)
== END 2023-11-23 14:02 | disposition home or self-care (01) | DRG 291 ==
LOC: ED 17:09 → 4W 19:27 → INTOOBSV 19:27 → 4W 20:33

== ENCOUNTER 2024-01-17 10:41 | Inpatient (IN) ==
[2024-01-17 11:15] LABS: Basophils # (auto) 0.04 K/uL (0.00-0.20); Basophils % (auto) 0.4 %; Eosinophils # (auto) 0.15 K/uL (0.00-0.50); Eosinophils % (auto) 1.5 %; Hematocrit (blood only) 47.3 % (42.0-52.0); Hemoglobin 15.8 g/dl (14.0-18.0); Immature Granulocytes # (auto) 0.05 K/uL (0.01-0.20); Immature Granulocytes % (auto) 0.5 %; Lymphocytes # (auto) 1.42 K/uL (1.20-3.40); Lymphocytes % (auto) 14.5 %; Mean Corpuscular Hemoglobin 29.2 pg (25.0-34.0); Mean Corpuscular Hgb Conc 33.4 g/dL (32.0-36.0); Mean Corpuscular Volume 87.3 fL (80.0-100.0); Mean Platelet Volume 10.3 fL (9.4-12.4); Monocytes # (auto) 0.69 K/uL (0.11-0.59); Neutrophils # (auto) 7.46 K/uL (1.40-6.50); Neutrophils % (auto) 76.1 %; Platelet Count 171 K/uL (130-400); RDW Coefficient of Variation 14.5 % (11.5-14.5); RDW Standard Deviation 46.1 fL (36.4-46.3); Red Blood Count 5.42 M/uL (4.70-6.10); White Blood Count 9.81 K/ul (4.8-10.8)
[2024-01-17] MEDS: NITROGLYCERIN 2% OINTMENT 30GM TUBE EXT ONE (11:15)
[2024-01-17] MEDS: ALBUT/IPRATROP 3MG/0.5MG NEB 3 ML VIAL NEB STA (11:16)
--- NOTE | 2024-01-17 11:18 | XRay Report ---
XR chest 1V portable HISTORY: 48 years-old Male Chest pain, nonspecific COMPARISON: 11/21/2023 TECHNIQUE: AP view of the chest FINDINGS: Single lead left subclavian pacer. Cardiomegaly. Pulmonary vascular congestion with interstitial coar sening. There is no pneumothorax. Mid to lower lung zone predominant consolidation with layering smal l pleural effusions, similar in appearance to the prior study. Bones appear grossly intact. IMPRESSION: 1. Cardiomegaly with pulmonary edema. 2. Small pleural effusions with bibasilar consolidation suspicious for pneumonia. ACT 112: Negative or not required by law. The above report was generated using voice recognition software. It may contain grammatical, syntax o r spelling errors. Electronically signed by: Sony Irby M.D. 01/17/2024 11:17 AM
[2024-01-17 11:25] LABS: Base Excess VBG -3.4 mEq/L; HCO3 VBG 23 mmol/L; Oxygen Saturation VBG 83.3 %; PCO2 VBG 46 mmHg (38-50); PO2 VBG 54 mmHg; pH VBG 7.31 (7.36-7.41)
[2024-01-17 11:35] LABS: Albumin Level 3.8 gm/dl (3.4-5.0); BUN Creatinine Ratio 13.8 (10-20); Calcium 9.1 mg/dl (8.6-10.3); Creatinine Clr Calc Pharmacy 158.9 ml/min; Globulin 3.8 gm/dl (2.5-4.0); Magnesium 1.6 mg/dl (1.7-2.4); Potassium 3.9 mmol/L (3.5-5.1); Total Protein 7.6 gm/dl (6.0-8.3)
[2024-01-17 11:38] LABS: Prothrombin Time 10.9 Seconds (9.0-12.0)
--- NOTE | 2024-01-17 11:58 | Emergency Department Note ---
Impression & Plan Acute on chronic respiratory failure with hypoxemia, COPD (chronic obstructive pulmonary disease), Hypertension, Acute on chronic HFrEF (heart failure with reduced ejection fraction), Hypomagnesemia ED Provider Note NAME: HARDIK LOVE AGE: 48 SEX: M : 1975 ARRIVES VIA: Ambulance INFORMANT: Patient ED PROVIDER(S): Marv Cintron MD CHIEF COMPLAINT: Shortness of breath PLAN: Disposition: Admit MEDICAL DECISION MAKING: The patient is a pleasant 47-year-old gentleman with a past medical history of chronic respiratory failure, combined systolic and diastolic heart failure, COPD, MARIELENA, uncontrolled diabetes, intellectual disability, medical noncompliance who presents to the emergency department via EMS for acute onset shortness of breath/respiratory distress which the patient reports had been developing over several days but became more severe this morning. He reports having constant chest tightness and a productive cough with pink frothy sputum. Patient reports he was wearing his nasal cannula at 5 L without improvement in his symptoms. He took his medications as prescribed per his report as well as his albuterol inhaler. Per EMS patient was found to be with O2 saturation in the mid 80s on his oxygen. Patient was placed on BiPAP and improved. He denies any fevers, nausea, vomiting, diarrhea. He reports that his weight has been stable though does appear to be 15 kg up from November. On evaluation the patient is in moderate respiratory distress with increased work of breathing, afebrile with respiratory rate in the mid to upper 30s, heart rate in the 110s and blood pressure 150s-170/100s-120s with wheezing and rhonchi of bilateral lung obrien. WOB showing steady improvement on BiPAP. He appears hypervolemic with 1+ bilateral lower extremity edema. Nitroglycerin paste applied for afterload reduction. EKG without overt acute ischemia. CXR demonstrates cardiomegaly with pulmonary edema as well as small bilateral pleural effusions and bibasilar consolidation. WBC, H/H and platelets within normal limits. VBG with pCO2 of 46 and pH of 7.3, unremarkable. Chemistry without metabolic acidosis. Magnesium 1.6 and electrolytes otherwise unremarkable. LFTs unremarkable. Initial high- sensitivity troponin 23, nonspecific with delta high-sensitivity troponin 25.7 stable and similar to prior values in the setting of the patient's history of CHF. BNP is 940 increased from prior in the setting of hypervolemic appearance. Procalcitonin is undetectable. Lipase is normal. Respiratory BioFire was negative. Patient continued to demonstrate improvement following BiPAP, nitroglycerin paste for afterload reduction as well as DuoNeb for bronchospasm and IV Bumex. Patient agrees with plan for admission for further management. Case was discussed with Dr. Olson, [facility] hospital[place], who will evaluate the patient for admission. Further management per admitting team. Triage Nursing notes reviewed and agree them. Prior/external medical records reviewed Vital Signs: reviewed Differential diagnosis: Reactive airway disease, pneumonia, pneumothorax, COPD, CHF, infections, cardiac ischemia, pulmonary embolism, musculoskeletal, gastrointestinal, as well as other pathologies. ER treatment provided: See below. Diagnostics interpreted by me: ECG: Sinus tachycardia 105 bpm, LVH, no overt ST elevation or depression, QTc 475, QRS 110. Similar to prior. Cardiac Monitoring: An order for continuous cardiac monitoring was placed and demonstrated sinus tachycardia, 105 bpm, no ectopy. Laboratory studies: See below Imaging studies: See below Consultation(s): Case was discussed with Dr. Olson, [facility] hospitalist, who will evaluate the patient for admission. HPI: The patient is a pleasant 47-year-old gentleman with a past medical history of chronic respiratory failure, combined systolic and diastolic heart failure, COPD, MARIELENA, uncontrolled diabetes, intellectual disability, medical noncompliance who presents to the emergency department via EMS for acute onset shortness of breath/respiratory distress which the patient reports had been developing over several days but became more severe this morning. He reports having constant chest tightness and a productive cough with pink frothy sputum. Patient reports he was wearing his nasal cannula at 5 L without improvement in his symptoms. He took his medications as prescribed per his report as well as his albuterol inhaler. Per EMS patient was found to be with O2 saturation in the mid 80s on his oxygen. Patient was placed on BiPAP and improved. He denies any fevers, nausea, vomiting, diarrhea. He reports that his weight has been stable though does appear to be 15 kg up from November. ROS: See above HPI for pertinent positives & negatives. A total of 10 systems reviewed and were otherwise negative. VITALS:See Below PHYSICAL EXAMINATION: GENERAL: Awake, alert, uncomfortable-appearing, in moderate respiratory distress, BMI 49.4. HENT: Normocephalic, atraumatic. Oropharynx unremarkable. EYES: Normal conjunctiva. Sclera non-icteric. NECK: Supple. No nuchal rigidity. FROM. Mild JVD. RESPIRATORY: Wheezes of bilateral lung obrien with increased work of breathing. CARDIAC: Regular rate, normal rhythm. Extremities warm and well perfused. Pulses equal. ABDOMEN: Soft, non-distended. No tenderness to palpation. No rebound or guarding. No masses. MUSCULOSKELETAL: Chest examination reveals no tenderness. The back is symmetrical on inspection without obvious abnormality. There is no CVA tenderness to palpation. No joint edema. LOWER EXTREMITIES: Calves are equal size bilaterally and non-tender. 1+ bilateral lower extremity edema. No discoloration. NEURO: Normal sensorium. No sensory or motor deficits noted. SKIN: No rash or jaundice noted. ED COURSE: Critical Care: I have personally spent greater than 35 minutes of critical care time in the direct management of this patient. This includes bedside care, interpretation of diagnostic studies, and testing, discussion with consultants, patient, and family members, and other required patient management activities. This 35 minutes is in excess of all separately billable procedures. Marv Cintron MD Past Med/Surg History Problem List (Updated 01/18/24 @ 00:46 by Marv Cintron MD) Hypomagnesemia (Acute) Acute on chronic HFrEF (heart failure with reduced ejection fraction) (Acute) Hypoxic respiratory failure (Acute) CHF (congestive heart failure) (Acute) Subperiosteal abscess of jaw Acute on chronic respiratory failure with hypoxemia (Acute) Periapical abscess Respiratory failure (Acute) Pulmonary edema (Acute) Hypomagnesemia (Acute) Acute congestive heart failure (Acute) Type 2 diabetes mellitus with peripheral neuropathy Type 2 diabetes mellitus with obesity Obstructive sleep apnea Diabetic peripheral neuropathy Non-proliferative diabetic retinopathy, both eyes Uncontrolled diabetes mellitus with hyperglycemia COPD (chronic obstructive pulmonary disease) (Chronic) 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 Difficult to manage. Integrated into heart failure clinic. Frequent admissions for heart failure exacerbations. Echo (05/31) EF=25-30% with mod to severe global hypokinesis, basal kelsi-septal akinetic wall, LVH, RVSP elevated at 30-40mmHg, and mod dilated ascending aorta. Managed medically with ASA + BB + ARB/Neprilysin inhibitor (Entresto) + high dose furosemide (160mg BID) + metolazone (3x weekly). Considering ICD given EF. NICM (nonischemic cardiomyopathy) (Acute) Pt admitted for elective ICD. Underwent procedure without any complications monitored over night and discharged home. Chronic respiratory failure AICD (automatic cardioverter/defibrillator) present Normocytic anemia Hypertension (Chronic) Poor intravenous access Morbid obesity with BMI of 50.0-59.9, adult Chronic anticoagulation Diabetes mellitus type II, uncontrolled (Chronic) Urinary bladder incontinence Hx of local infection of skin and subcutaneous tissue Ambulatory dysfunction (Chronic) Recurrent infection of skin Pulmonary nodule V tach (Acute) HFrEF (heart failure with reduced ejection fraction) Hemoptysis (Acute) Intellectual disability Medical non-compliance Vitamin D deficiency Medical History Chronic dental pain Respiratory failure Pulmonary edema Small bowel obstruction Housing instability, currently housed, at risk for homelessness Hearing loss of both ears Nonproliferative retinopathy due to secondary diabetes Dilatation of thoracic aorta Iliac aneurysm Vitamin D insufficiency Previously deficient, taking Vit D supplementation Umbilical hernia Lung nodule Fatty liver Surgical History H/O oral surgery History of carpal tunnel surgery S/P tonsillectomy History of cholecystectomy Family History Father , age 57 of an [place]. Heart disease Myocardial infarction Mother , age 67 of a ruptured neck vessel Sudden Other Depression Lung disease No pertinent family history Denies family history of Ovarian cancer Prostate cancer Breast cancer Colorectal cancer Social History Smoking Status: Former smoker Tobacco Type: Cigarettes Age Started Using Tobacco: 14; Age Quit Using Tobacco: 18; Cigarettes Per Day: 40; Second Hand Exposure: No; Do You Dip or Chew Tobacco: No; Hx Alcohol Use: No Hx Substance Use: No Preferred Language: Ukrainian Communication Ability: Effective Visual Impairment: No Limitations Hearing Ability: Normal Automatic Spooler Operator Required: No Beliefs That Will Affect Care: None marital status: Current Living Situation Comment: Lives at home with current occupational status: unemployed How many Children do You have: 0 Other Information That Helps Us Care for You: No Feels Safe at Home: Yes Safety Concerns: Feels Safe At This Time Childhood Exposure to Second-Hand Smoke: Yes Dental Care, Regularly: Yes Physical Activity Frequency: Does not Exercise Seatbelt Use: never Sunscreen Use: No Assistive Devices: Oxygen - Continuous, Walker and Wheelchair Allergies Allergies Allergy/AdvReac Type Severity Reaction Status Date / Time albuterol Allergy Severe proair Verified 12/11/23 15:13 "trouble taking breaths" ceftriaxone Allergy Severe SHORTNESS Verified 12/11/23 15:13 OF BREATH lidocaine Allergy Severe SHORTNESS Verified 12/11/23 15:13 OF BREATH, diaphoretic, hives mushroom Allergy Severe Anaphylaxis Unverified 12/11/23 15:13 procaine Allergy Severe SHORTNESS Verified 12/11/23 15:13 OF BREATH, diaphoretic, hives amoxicillin Allergy Intermediate HIVES/FACIAL Verified 12/11/23 15:13 SWELLING clavulanic acid Allergy Intermediate HIVES/FACIAL Verified 12/11/23 15:13 SWELLING lisinopril Allergy Intermediate HIVES Verified 12/11/23 15:13 shellfish derived Allergy Unknown Unknown Verified 12/11/23 15:13 acetaminophen AdvReac Mild NAUSEA Verified 12/11/23 15:13 Fish Containing Products AdvReac Unknown Unknown Verified 12/11/23 15:13 Home Meds Home Medications Medication Instructions Recorded Confirmed nitroglycerin 0.4 mg sublingual 0.4 mg sublingual UD PRN Chest Pain 04/24/19 01/17/24 tablet (Nitrostat) aspirin 81 mg tablet,delayed 81 mg PO QAM 06/16/21 01/17/24 release (Neisha Low Dose Aspirin) albuterol sulfate 2.5 mg/3 mL 2.5 mg inhalation Q6H PRN 12/02/21 01/17/24 (0.083 %) solution for nebulization Shortness Of Breath Or Wheezing budesonide 0.25 mg/2 mL suspension 0.25 mg inhalation DAILY PRN 09/15/22 01/17/24 for nebulization Shortness Of Breath albuterol sulfate 90 mcg/actuation 1 inh inhalation QID PRN Shortness 10/12/23 01/17/24 aerosol inhaler Of Breath Or Wheezing nystatin 100,000 unit/gram topical 1 applic topical BID PRN Skin 10/12/23 01/17/24 powder Irritation insulin glargine 100 unit/mL (3 70 unit subcut HS 11/03/23 01/17/24 mL) subcutaneous pen (Lantus Solostar U-100 Insulin) lidocaine 5 % topical patch 1 patch topical DAILY PRN Pain 11/03/23 01/17/24 Previous Rx's Medication Instructions Recorded metoprolol succinate 100 mg 100 mg PO BID #60 tabs 02/21/21 tablet,extended release 24 hr sacubitril 97 mg-valsartan 103 mg 1 tab PO BID #60 tabs 02/21/21 tablet (Entresto) blood-glucose meter (OneTouch #1 ea 10/12/22 Verio Flex Meter) lancets 30 gauge (OneTouch Delica #100 ea 10/12/22 Plus Lancet) Symbicort 160 mcg-4.5 2 inh inhalation BID #3 Inhalers 11/14/22 mcg/actuation HFA aerosol inhaler (budesonide-formoterol) blood sugar diagnostic (OneTouch #100 ea 01/17/23 Verio test strips) pen needle, diabetic 31 gauge x #100 ea 02/16/23 5/16" (Comfort EZ Pen Anderson) Oxygen Home #5 L 04/01/23 atorvastatin 10 mg tablet 10 mg PO DAILY #90 tabs 04/19/23 torsemide 100 mg tablet 100 mg PO BID #180 tabs 04/19/23 isosorbide mononitrate 30 mg 60 mg (2 x 30 mg) PO DAILY #90 tabs 05/14/23 tablet,extended release 24 hr hydroxyzine HCl 25 mg tablet 25 mg PO TID PRN itching #90 tabs 05/31/23 triamcinolone acetonide 0.025 % 1 applic topical TID PRN rash #454 05/31/23 topical cream grams trolamine salicylate 10 % topical 1 applic EXT BID PRN left sided 11/06/23 cream (Myoflex) neck pain #35.4 grams tirzepatide 7.5 mg/0.5 mL 7.5 mg (0.5 mL) subcut WK 30 days 12/11/23 subcutaneous pen injector #2 mL blood-glucose sensor (FreeStyle #2 ea 12/13/23 Karla 3 Plus Sensor device) blood-glucose meter,continuous #1 ea 01/14/24 (FreeStyle Karla [employer]) blood-glucose meter,continuous #1 ea 01/14/24 ([employer] Karla [employer]) Results & Data (ED) Vital Signs Vital Signs - 24 hr 01/17/24 10:59 01/17/24 11:05 01/17/24 11:05 Temperature Temperature Source Pulse Rate 111 H Pulse Rate [Apical] Pulse Rate from SpO2 Sensor Pulse Rhythm Pulse Rhythm [Apical] Pulse Strength Pulse Strength [Apical] Respiratory Rate 34 H Respiratory Effort / Characteristics Spontaneous Accessory Muscle Use Labored Short of Breath SOB on Exertion Short of Breath SOB on Exertion Tripoding Short of Breath SOB on Exertion Tripoding Respiratory Depth Deep Shallow Shallow Respiratory Pattern Tachypnea Tachypnea Blood Pressure Blood Pressure [Left Arm] Blood Pressure Mean Blood Pressure Mean [Left Arm] Blood Pressure Position Blood Pressure Position [Left Arm] Pulse Oximetry 95 Oxygen Delivery Method BiPAP BiPAP Fraction of Inspired Oxygen 40 SaO2/FiO2 Ratio Sepsis Recent Fever Within 48 Hours Sepsis New/Unexplained Change in Mental Status Sepsis Action Taken by Nursing 01/17/24 11:05 01/17/24 11:05 01/17/24 11:05 Temperature 36.6 C 36.8 C Temperature Source Oral Oral Pulse Rate 109 H Pulse Rate [Apical] 109 H Pulse Rate from SpO2 Sensor Pulse Rhythm Regular Pulse Rhythm [Apical] Regular Pulse Strength Normal Pulse Strength [Apical] Normal Respiratory Rate 30 H 30 H Respiratory Effort / Characteristics Short of Breath SOB on Exertion Tripoding Short of Breath Tripoding Respiratory Depth Shallow Shallow Respiratory Pattern Tachypnea Tachypnea Blood Pressure 154/120 H Blood Pressure [Left Arm] 154/120 H Blood Pressure Mean 131 Blood Pressure Mean [Left Arm] 131 Blood Pressure Position Semi-fowlers Blood Pressure Position [Left Arm] Semi-fowlers Pulse Oximetry 96 95 95 Oxygen Delivery Method BiPAP BiPAP Fraction of Inspired Oxygen 40 40 40 SaO2/FiO2 Ratio 240 237 Sepsis Recent Fever Within 48 Hours No Sepsis New/Unexplained Change in Mental Status N/A Sepsis Action Taken by Nursing Physician Notified 01/17/24 11:05 01/17/24 11:16 01/17/24 11:21 Temperature Temperature Source Pulse Rate 109 H 102 H Pulse Rate [Apical] 111 H Pulse Rate from SpO2 Sensor 102 H Pulse Rhythm Regular Pulse Rhythm [Apical] Pulse Strength Pulse Strength [Apical] Respiratory Rate 30 H 31 H 26 H Respiratory Effort / Characteristics Spontaneous Accessory Muscle Use Labored Short of Breath SOB on Exertion Respiratory Depth Respiratory Pattern Tachypnea Blood Pressure 169/136 H Blood Pressure [Left Arm] Blood Pressure Mean 147 Blood Pressure Mean [Left Arm] Blood Pressure Position Blood Pressure Position [Left Arm] Pulse Oximetry 95 96 Oxygen Delivery Method BiPAP BiPAP BiPAP Fraction of Inspired Oxygen 40 40 SaO2/FiO2 Ratio 237 Sepsis Recent Fever Within 48 Hours Sepsis New/Unexplained Change in Mental Status Sepsis Action Taken by Nursing 01/17/24 11:22 01/17/24 12:12 01/17/24 12:27 Temperature Temperature Source Pulse Rate 111 H 90 97 H Pulse Rate [Apical] Pulse Rate from SpO2 Sensor 90 97 H Pulse Rhythm Pulse Rhythm [Apical] Pulse Strength Pulse Strength [Apical] Respiratory Rate 24 26 H Respiratory Effort / Characteristics Respiratory Depth Respiratory Pattern Blood Pressure 144/103 H 156/106 H Blood Pressure [Left Arm] Blood Pressure Mean 116 122 Blood Pressure Mean [Left Arm] Blood Pressure Position Blood Pressure Position [Left Arm] Pulse Oximetry 95 95 Oxygen Delivery Method BiPAP BiPAP Fraction of Inspired Oxygen SaO2/FiO2 Ratio Sepsis Recent Fever Within 48 Hours Sepsis New/Unexplained Change in Mental Status Sepsis Action Taken by Nursing Laboratory Data Attestation: I reviewed the patient's lab results. 01/17/24 10:56 01/17/24 10:56 Lab Results 01/17/24 01/17/24 Range/Units 10:56 11:16 WBC 9.81 (4.8-10.8) K/ul RBC 5.42 (4.70-6.10) M/uL Hgb 15.8 (14.0-18.0) g/dl Hct 47.3 (42.0-52.0) % MCV 87.3 (80.0-100.0) fL MCH 29.2 (25.0-34.0) pg MCHC 33.4 (32.0-36.0) g/dL RDW Std Deviation 46.1 (36.4-46.3) fL RDW Coeff of Zoltan 14.5 (11.5-14.5) % Plt Count 171 (130-400) K/uL MPV 10.3 (9.4-12.4) fL Immature Gran % (Auto) 0.5 % Neut % (Auto) 76.1 % Lymph % (Auto) 14.5 % Cache % (Auto) 7.0 % Eos % (Auto) 1.5 % Baso % (Auto) 0.4 % Neut # (Auto) 7.46 H (1.40-6.50) K/uL Lymph # (Auto) 1.42 (1.20-3.40) K/uL Cache # (Auto) 0.69 H (0.11-0.59) K/uL Eos # (Auto) 0.15 (0.00-0.50) K/uL Baso # (Auto) 0.04 (0.00-0.20) K/uL Immature Gran # (Auto) 0.05 (0.01-0.20) K/uL PT 10.9 (9.0-12.0) Seconds INR 1.0 (0.9-1.1) VBG pH 7.31 L (7.36-7.41) VBG pCO2 46 (38-50) mmHg VBG pO2 54 mmHg VBG HCO3 23 mmol/L VBG O2 Saturation 83.3 % VBG Base Excess -3.4 mEq/L Sodium 139 (136-145) mmol/L Potassium 3.9 (3.5-5.1) mmol/L Chloride 107 (98-107) mmol/L Carbon Dioxide 24 (21-32) mmol/L Anion Gap 8 (3-11) BUN 12 (6-23) mg/dl Creatinine 0.87 (0.6-1.4) mg/dl Est Cr Clr Drug Dosing 158.9 ml/min eGFR 107.10 BUN/Creatinine Ratio 13.8 (10-20) Glucose 287 H (70-99(Fasting)) mg/dl Calcium 9.1 (8.6-10.3) mg/dl Magnesium 1.6 L (1.7-2.4) mg/dl Total Bilirubin 1.0 (0.2-1.0) mg/dl AST 15 (13-39) U/L ALT 13 (7-52) U/L Alkaline Phosphatase 97 (34-104) U/L Troponin I High Sens 23.0 H (0-20) pg/ml B-Natriuretic Peptide 940 H (0-100) pg/ml Total Protein 7.6 (6.0-8.3) gm/dl Albumin 3.8 (3.4-5.0) gm/dl Globulin 3.8 (2.5-4.0) gm/dl Albumin/Globulin Ratio 1.0 (0.9-2) Lipase 16 (11-82) U/L Procalcitonin < 0.02 (0-0.5) ng/ml Adenovirus (PCR) Not Detected (NotDetected) B. pertussis DNA (PCR) Not Detected (NotDetected) B.parapertussis DNA PCR Not Detected (NotDetected) C. pneumoniae DNA (PCR) Not Detected (NotDetected) Coronavirus OC43 (PCR) Not Detected (NotDetected) Coronavirus HKU1 (PCR) Not Detected (NotDetected) Coronavirus 229E (PCR) Not Detected (NotDetected) SARS-CoV-2 (PCR) Not Detected (NotDetected) Coronavirus NL63 (PCR) Not Detected (NotDetected) Human Metapneumovir PCR Not Detected (NotDetected) Influenza Type A (PCR) Not Detected (NotDetected) Influenza Type B (PCR) Not Detected (NotDetected) M. pneumoniae (PCR) Not Detected (NotDetected) Parainfluenza 1 (PCR) Not Detected (NotDetected) Parainfluenza 2 (PCR) Not Detected (NotDetected) Parainfluenza 3 (PCR) Not Detected (NotDetected) Parainfluenza 4 (PCR) Not Detected (NotDetected) RSV (PCR) Not Detected (NotDetected) Entero/Rhino (PCR) Not Detected (NotDetected) Administered Medications Enoxaparin Sodium (Enoxaparin Inj 40 Mg/0.4 Ml Syr) 40 mg SQ Q12H SUKHWINDER Stop: 02/16/24 20:59 Last Admin: 01/17/24 21:24 Dose: Not Given Documented By: MIN Furosemide (Furosemide 40 Mg/4 Ml Vial) 80 mg IV BID17 SUKHWINDER Stop: 02/16/24 16:59 Last Admin: 01/17/24 17:13 Dose: 80 mg Documented By: BOSTON Insulin Aspart (Insulin Aspart Per Unit Charge) 0 units SC ACHS SUKHWINDER Stop: 02/16/24 16:29 Last Admin: 01/17/24 21:24 Dose: 2 units Documented By: MIN Co-signed By: GEOVANY Admin: 01/17/24 17:13 Dose: 13 units Documented By: PK Co-signed By: RITA Insulin Glargine (Lantus Per Unit Charge) 35 units SQ BID SUKHWINDER Stop: 02/16/24 20:59 Last Admin: 01/17/24 21:23 Dose: 35 units Documented By: MIN Co-signed By: DM Metoprolol Succinate (Metoprolol Succ 50mg Ext Rel Tab) 100 mg PO BID SUKHWINDER Stop: 02/16/24 20:59 Last Admin: 01/17/24 21:23 Dose: 100 mg Documented By: MIN Sacubitril/Valsartan (Valsartan/Sacubitril 103/97mg Tab) 1 tab PO BID SUKHWINDER Stop: 02/16/24 20:59 Last Admin: 01/17/24 21:23 Dose: 1 tab Documented By: MIN Discontinued Medications Albuterol (Albut/Ipratrop 3mg/0.5mg Neb 3 Ml Vial) 3 ml NEB NOW STA; Protocol Stop: 01/17/24 11:11 Last Admin: 01/17/24 11:16 Dose: 3 ml Documented By: LIONEL Magnesium Sulfate/Dextrose (Magnesium Sulfate / D5w) 1 gm in 100 mls @ 100 mls/hr IV NOW STA Stop: 01/17/24 12:50 Last Infusion: 01/17/24 14:28 Dose: Infused Documented By: [facility] Admin: 01/17/24 12:51 Dose: 100 mls/hr Documented By: ANT Bumetanide 5 mg/ Syringe 20 mls @ 4 mls/min IV ONE ONE Stop: 01/17/24 11:55 Last Admin: 01/17/24 12:53 Dose: 4 mls/min Documented By: ANT Nitroglycerin (Nitroglycerin 2% Ointment 30gm Tube) 1 inch EXT NOW ONE Stop: 01/17/24 11:07 Last Admin: 01/17/24 11:15 Dose: 1 inch Documented By: [facility] Imaging Data Radiologist's Impression: Chest X-Ray 01/17/24 10:52 XR chest 1V portable HISTORY: 48 years-old Male Chest pain, nonspecific COMPARISON: 11/21/2023 TECHNIQUE: AP view of the chest FINDINGS: Single lead left subclavian pacer. Cardiomegaly. Pulmonary vascular congestion with interstitial coarsening. There is no pneumothorax. Mid to lower lung zone predominant consolidation with layering small pleural effusions, similar in appearance to the prior study. Bones appear grossly intact. IMPRESSION: 1. Cardiomegaly with pulmonary edema. 2. Small pleural effusions with bibasilar consolidation suspicious for pneumonia. ACT 112: Negative or not required by law. The above report was generated using voice recognition software. It may contain grammatical, syntax or spelling errors. Electronically signed by: Sony Irby M.D. 01/17/2024 11:17 AM Discharge Plan Visit Data Chief Complaint: Shortness of Breath/Dyspnea ED Provider: Marv Cintron Discharge Problem: Acute on chronic respiratory failure with hypoxemia, COPD (chronic obstructive pulmonary disease), Hypertension, Acute on chronic HFrEF (heart failure with reduced ejection fraction), Hypomagnesemia Patient Disposition: Admitted As Inpatient Discharge Instructions Interventions: ED Discharge Assessment Last Done: 01/17/24 14:47 Discharge Problem: COPD (chronic obstructive pulmonary disease) Qualifiers: COPD type: COPD with acute exacerbation Qualified Code(s): J44.1 - Chronic obstructive pulmonary disease with (acute) exacerbation Hypertension Qualifiers: Hypertension type: unspecified Qualified Code(s): I10 - Essential (primary) hypertension
--- NOTE | 2024-01-17 12:02 | History & Physical Report ---
Date of Service January 17, 2024 Assessment & Plan (1) Acute on chronic respiratory failure with hypoxemia: Plan: Worsening SOB at rest that began on Sunday 12/2 H/o recurrent admissions for acute CHF with similar presentation On BiPAP on arrival VB.31/46/54/23 Trend q4h while on BiPAP Titrate supplemental oxygen to maintain SpO2 89-92% Continuous pulse oximetry (2) Acute on chronic HFrEF (heart failure with reduced ejection fraction): Plan: Suspect main contributor to #1 Last echocardiogram on 10/12/2023 revealed severely reduced LVEF at 15-20% and global hypokinesis of the left ventricle BNP elevated at 940 on arrival (most recently 246 on 11/05/2023) Nitro-Bid 2% paste and Bumex 5 mg IV x 1 in the ED Strict I&O monitoring Daily weights 1200 mL fluid restriction Lasix 80 mg IV BID17 (3) Type 2 diabetes mellitus with obesity: Plan: Last A1c at 8.1% on 10/12/2023 Patient is normally on Lantus insulin 70u HS Lantus 35 u BID while inpatient SSI; with target BSG range 110-140mg/dL, CF 15, carb ratio 8 T2DM diet BSG ACHS Adjust regimen as needed (4) Obstructive sleep apnea: Plan: Patient reports he does not currently have a CPAP at home; was told he was not eligible He reports he does wear supplemental oxygen at nighttime (5L NC) CPAP/BiPaP as needed Case management consult for assistance with home CPAP (5) COPD (chronic obstructive pulmonary disease): Plan: BioFire negative Do not feel COPD exacerbation is contributing DuoNeb Q6R PRN for wheezing (6) Hemoptysis: Plan: Unchanged hemoptysis x several months; appears to be chronic May be secondary to pulmonary vascular congestion (per most recent pulmonary note); ?barotrauma Lower suspicion for PE on arrival, however will obtain chest CTA if unchanged hypoxia after patient receives diuresis (7) Morbid obesity with BMI of 50.0-59.9, adult: Plan Disposition: Admit to PCU telemetry Full code Heart healthy, T2DM, low-sodium diet (1200 mL fluid restriction) VTE PPx: Lovenox 40 mg SQ q12h History of Present Illness Chief Complaint: SOB/dyspnea Primary Care Provider: Gosia Becker MD Alok is a 48-year-old male with PMH of T2DM, MARIELENA, congestive heart failure, COPD, AICD, HTN, urinary bladder incontinence, and nonischemic cardiomyopathy. He presented via EMS on 01/16 for worsening SOB x 3 days. His SOB developed on Saturday 01/13. He endorses both SOB at rest and with exertion. He is unable to lie on his back; endorses orthopnea. He reports this feels similar to prior episodes of CHF exacerbations. No sick contacts. No history of DVT/PE. He does use supplemental oxygen at nighttime (5L NC). In regard to CPAP, he is supposed to use a CPAP at night, but reports he currently does not have a CPAP and cannot get another one. Patient reports he took his regular morning medicine today. He reports good compliance with his medications at home. He reports he took his regular Lantus insulin 70 units last night. No recent change in medications. He manages his own medicine at home. He also endorses watching his salt intake and reports no recent weight changes. He reports he takes his weight daily, and he was around 160 kg on the scale today (please note: patients discharge weight was 146kg in November, and admission weight is 161kg today). He reports he is still producing urine. Patient denies smoking, tobacco use, or recent alcohol use. Patient is hypertensive at 154/120, tachycardic at 111 bpm, and tachypneic at 31 RPM; SpO2 95% on BiPAP. ED course: Magnesium sulfate 1 g IV Nitro-Bid 2% 1 inch exterior DuoNeb 3 mL Bumetanide 5 mg IV ROS: Patient endorses lightheadedness with walking, excessive fatigue, SOB at rest and with exertion, orthopnea, pleuritic CP, hemoptysis (which has been going on for months, per patient), and chronic neuropathy in the legs. Patient denies fever, chills, night sweats, falls, fainting, headache, chest pain, chest pressure, chest palpitations, abdominal pain, N/V/D, burning with urination, blood in the urine or stool, or changes in urinary/bowel habits. Allergies Allergy/AdvReac Type Severity Reaction Status Date / Time albuterol Allergy Severe proair Verified 12/11/23 15:13 "trouble taking breaths" ceftriaxone Allergy Severe SHORTNESS Verified 12/11/23 15:13 OF BREATH lidocaine Allergy Severe SHORTNESS Verified 12/11/23 15:13 OF BREATH, diaphoretic, hives mushroom Allergy Severe Anaphylaxis Unverified 12/11/23 15:13 procaine Allergy Severe SHORTNESS Verified 12/11/23 15:13 OF BREATH, diaphoretic, hives amoxicillin Allergy Intermediate HIVES/FACIAL Verified 12/11/23 15:13 SWELLING clavulanic acid Allergy Intermediate HIVES/FACIAL Verified 12/11/23 15:13 SWELLING lisinopril Allergy Intermediate HIVES Verified 12/11/23 15:13 shellfish derived Allergy Unknown Unknown Verified 12/11/23 15:13 acetaminophen AdvReac Mild NAUSEA Verified 12/11/23 15:13 Fish Containing Products AdvReac Unknown Unknown Verified 12/11/23 15:13 Home Medications Medication Instructions Recorded Confirmed Type nitroglycerin 0.4 mg sublingual 0.4 mg sublingual UD PRN Chest Pain 04/24/19 01/17/24 History tablet (Nitrostat) metoprolol succinate 100 mg 100 mg PO BID #60 tabs 02/21/21 01/17/24 Rx tablet,extended release 24 hr sacubitril 97 mg-valsartan 103 mg 1 tab PO BID #60 tabs 02/21/21 01/17/24 Rx tablet (Entresto) aspirin 81 mg tablet,delayed 81 mg PO QAM 06/16/21 01/17/24 History release (Neisha Low Dose Aspirin) albuterol sulfate 2.5 mg/3 mL 2.5 mg inhalation Q6H PRN 12/02/21 01/17/24 History (0.083 %) solution for nebulization Shortness Of Breath Or Wheezing budesonide 0.25 mg/2 mL suspension 0.25 mg inhalation DAILY PRN 09/15/22 01/17/24 History for nebulization Shortness Of Breath blood-glucose meter ([email or web address] #1 ea 10/12/22 12/11/23 Rx Verio Flex Meter) lancets 30 gauge ([employer]bert Medical DevicesTouch Delica #100 ea 10/12/22 12/11/23 Rx Plus Lancet) Symbicort 160 mcg-4.5 2 inh inhalation BID #3 Inhalers 11/14/22 01/17/24 Rx mcg/actuation HFA aerosol inhaler (budesonide-formoterol) blood sugar diagnostic ([email or web address].[email or web address] #100 ea 01/17/23 12/11/23 Rx Verio test strips) pen needle, diabetic 31 gauge x #100 ea 02/16/23 12/11/23 Rx 5/16" (Comfort EZ Pen [place]) Oxygen Home #5 L 04/01/23 12/11/23 Rx atorvastatin 10 mg tablet 10 mg PO DAILY #90 tabs 04/19/23 01/17/24 Rx torsemide 100 mg tablet 100 mg PO BID #180 tabs 04/19/23 01/17/24 Rx isosorbide mononitrate 30 mg 60 mg (2 x 30 mg) PO DAILY #90 tabs 05/14/23 01/17/24 Rx tablet,extended release 24 hr hydroxyzine HCl 25 mg tablet 25 mg PO TID PRN itching #90 tabs 05/31/23 01/17/24 Rx triamcinolone acetonide 0.025 % 1 applic topical TID PRN rash #454 05/31/23 01/17/24 Rx topical cream grams albuterol sulfate 90 mcg/actuation 1 inh inhalation QID PRN Shortness 10/12/23 01/17/24 History aerosol inhaler Of Breath Or Wheezing nystatin 100,000 unit/gram topical 1 applic topical BID PRN Skin 10/12/23 01/17/24 History powder Irritation insulin glargine 100 unit/mL (3 70 unit subcut HS 11/03/23 01/17/24 History mL) subcutaneous pen (Lantus Solostar U-100 Insulin) lidocaine 5 % topical patch 1 patch topical DAILY PRN Pain 11/03/23 01/17/24 History trolamine salicylate 10 % topical 1 applic EXT BID PRN left sided 11/06/23 01/17/24 Rx cream (Myoflex) neck pain #35.4 grams tirzepatide 7.5 mg/0.5 mL 7.5 mg (0.5 mL) subcut WK 30 days 12/11/23 01/17/24 Rx subcutaneous pen injector #2 mL blood-glucose sensor (FreeStyle #2 ea 12/13/23 12/13/23 Rx Karla 3 Plus Sensor device) blood-glucose meter,continuous #1 ea 01/14/24 Rx (FreeStyle Karla 3 [place]) blood-glucose meter,continuous #1 ea 01/14/24 Rx (FreeStyle Karla 3 [place]) Past Med/Surg History Problem List (Updated 01/17/24 @ 12:09 by Andrea Pascual PA-C) Acute on chronic HFrEF (heart failure with reduced ejection fraction) Hypoxic respiratory failure (Acute) CHF (congestive heart failure) (Acute) Subperiosteal abscess of jaw Acute on chronic respiratory failure with hypoxemia Periapical abscess Respiratory failure (Acute) Pulmonary edema (Acute) Hypomagnesemia (Acute) Acute congestive heart failure (Acute) Type 2 diabetes mellitus with peripheral neuropathy Type 2 diabetes mellitus with obesity Obstructive sleep apnea Diabetic peripheral neuropathy Non-proliferative diabetic retinopathy, both eyes Uncontrolled diabetes mellitus with hyperglycemia COPD (chronic obstructive pulmonary disease) (Chronic) 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 Difficult to manage. Integrated into heart failure clinic. Frequent admissions for heart failure exacerbations. Echo (05/31) EF=25-30% with mod to severe global hypokinesis, basal kelsi-septal akinetic wall, LVH, RVSP elevated at 30-40mmHg, and mod dilated ascending aorta. Managed medically with ASA + BB + ARB/Neprilysin inhibitor (Entresto) + high dose furosemide (160mg BID) + metolazone (3x weekly). Considering ICD given EF. NICM (nonischemic cardiomyopathy) (Acute) Pt admitted for elective ICD. Underwent procedure without any complications monitored over night and discharged home. Chronic respiratory failure AICD (automatic cardioverter/defibrillator) present Normocytic anemia Hypertension (Chronic) Poor intravenous access Morbid obesity with BMI of 50.0-59.9, adult Chronic anticoagulation Diabetes mellitus type II, uncontrolled (Chronic) Urinary bladder incontinence Hx of local infection of skin and subcutaneous tissue Ambulatory dysfunction (Chronic) Recurrent infection of skin Pulmonary nodule V tach (Acute) HFrEF (heart failure with reduced ejection fraction) Hemoptysis (Acute) Intellectual disability Medical non-compliance Vitamin D deficiency Medical History Respiratory failure Pulmonary edema Small bowel obstruction Housing instability, currently housed, at risk for homelessness Hearing loss of both ears Nonproliferative retinopathy due to secondary diabetes Dilatation of thoracic aorta Iliac aneurysm Vitamin D insufficiency Previously deficient, taking Vit D supplementation Umbilical hernia Lung nodule Fatty liver Surgical History H/O oral surgery History of carpal tunnel surgery S/P tonsillectomy History of cholecystectomy Family History Father , age 57 of an RI. Heart disease Myocardial infarction Mother , age 67 of a ruptured neck vessel Sudden Other Depression Lung disease No pertinent family history Denies family history of Ovarian cancer Prostate cancer Breast cancer Colorectal cancer Social History Smoking Status: Former smoker Tobacco Type: Cigarettes Age Started Using Tobacco: 14; Age Quit Using Tobacco: 18; Cigarettes Per Day: 40; Second Hand Exposure: No; Do You Dip or Chew Tobacco: No; Hx Alcohol Use: No Hx Substance Use: No Preferred Language: Marshallese Communication Ability: Effective Visual Impairment: No Limitations Hearing Ability: Normal Program Director/Morning Show Host Required: No Beliefs That Will Affect Care: None marital status: Current Living Situation: Spouse Current Living Situation Comment: Lives at home with current occupational status: unemployed How many Children do You have: 0 Feels Safe at Home: Yes Childhood Exposure to Second-Hand Smoke: Yes Dental Care, Regularly: Yes Physical Activity Frequency: Does not Exercise Seatbelt Use: never Sunscreen Use: No Assistive Devices: Oxygen - Continuous, Walker and Wheelchair Review of Systems Review of Systems: See HPI above Physical Exam Physical Exam: General: Mild respiratory distress; lethargic; non-toxic appearing; cooperative; SpO2 95% on BiPAP HEENT: normocephalic, atraumatic; no scleral icterus; PERRLA w/ EOMs intact; vision and hearing grossly intact Neck: supple; no lymphadenopathy; trachea midline Skin: warm, dry without signs of tenting; no cyanosis; no rashes, bruising, lesions, or erythema noted CV: chest wall NTP; RR, around 95-100 bpm; S1/S2 normal; no murmurs/rubs/gallops; pulses intact and symmetric at radial, DP, and PT Lungs: Mild respiratory distress; symmetrical chest wall expansion; mild bibasilar rales in the middle/lower lung obrien bilaterally; no wheezing ABD: Soft, NTP; BS present; no rebound/guarding; distention secondary to body h abitus; some superficial bruising on the lower left abdomen MSK: no tics or fasciculations; +1 pitting edema and significant swelling in the LEs bilaterally; thick, wooden texture Neuro: A&Ox3; normal mood and affect; fluent speech; no focal deficits; patient reports no sensation in the lower extremities bilaterally assessed via light touch Results & Data Results & Data Vital Signs (Past 12 Hours) Vital Signs Temp Pulse Pulse Resp BP BP Pulse Ox 01/17/24 11:22 111 H 01/17/24 11:16 111 H 31 H 01/17/24 11:05 109 H 30 H 95 01/17/24 11:05 36.8 C 109 H 30 H 154/120 H 95 01/17/24 11:05 95 01/17/24 11:05 36.6 C 109 H 30 H 154/120 H 96 01/17/24 11:05 01/17/24 11:05 01/17/24 10:59 111 H 34 H 95 O2 Del Method FiO2 01/17/24 11:22 01/17/24 11:16 BiPAP 40 01/17/24 11:05 BiPAP 40 01/17/24 11:05 BiPAP 40 01/17/24 11:05 40 01/17/24 11:05 BiPAP 40 01/17/24 11:05 BiPAP 01/17/24 11:05 BiPAP 01/17/24 10:59 40 Laboratory Results Abnormal lab results 01/17/24 Range/Units 10:56 Neut # (Auto) 7.46 H (1.40-6.50) K/uL [place] # (Auto) 0.69 H (0.11-0.59) K/uL VBG pH 7.31 L (7.36-7.41) Glucose 287 H (70-99(Fasting)) mg/dl Magnesium 1.6 L (1.7-2.4) mg/dl Troponin I High Sens 23.0 H (0-20) pg/ml B-Natriuretic Peptide 940 H (0-100) pg/ml Diagnostic Findings Chest X-Ray 01/17/24 10:52 XR chest 1V portable HISTORY: 48 years-old Male Chest pain, nonspecific COMPARISON: 11/21/2023 TECHNIQUE: AP view of the chest FINDINGS: Single lead left subclavian pacer. Cardiomegaly. Pulmonary vascular congestion with interstitial coarsening. There is no pneumothorax. Mid to lower lung zone predominant consolidation with layering small pleural effusions, similar in appearance to the prior study. Bones appear grossly intact. IMPRESSION: 1. Cardiomegaly with pulmonary edema. 2. Small pleural effusions with bibasilar consolidation suspicious for pneumonia. ACT 112: Negative or not required by law. The above report was generated using voice recognition software. It may contain grammatical, syntax or spelling errors. Electronically signed by: Sony Irby M.D. 01/17/2024 11:17 AM ECG Additional Comments: EKG revealed sinus tachycardia at 105 bpm; QTc 475 Code Status & VTE Plan Code Status Full code VTE Prophylaxis Plan VTE Prophylaxis will be ordered: Yes Supervising Physician Co-Signing Physician Notes Patient seen and examined, chart reviewed, case discussed with Andrea Pascual PA-C and I agree with the assessment and plan as above except as otherwise noted Labs and images reviewed Alok is a 48-year-old male with a history of HFrEF and history of V. 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 Last echo 09/2023 with EF 15-20%. BiPAP at bedtime. Patient at the bedside, has had progressive shortness of breath to the point where he cannot even go outside of his house due to dyspnea. Feels improved on BiPAP in the ER. Is not sure if he has had weight gain, is surprised to hear that his bed weight is up 10 to 15 kg. Reports that he is taking his diuretics at home, is not sure how often he misses a dose. Denies chest pain chest pressure. Denies wheezing. Denies fever/chills. Lungs sounds are distant and diminished, light basilar rales are present, bilateral pitting edema through lower extremities is present. JVD is present although difficult to appreciate due to habitus. Patient again reports that he is not able to use/obtain his BiPAP at home, at time of last admission and discharge he had reported that he had just gotten a BiPAP with new tubing and mask which he was able to use however he reports that [facility] took this from him and told him that he was not eligible to have another one. CM consulted to follow. He has had hypercapnia, MARIELENA, and obesity hypoventilation in the past and nighttime oxygenation alone puts him at high risk of worsened hypoventilation and potentially life- threatening hypercapnia. Patient's last discharge weight was 146 kg, admitting bed weight today is 161.5 kg. Agree with admission, diuresis, and goal net -1-2 L/day. Low-salt diet. Agree with above. PG Care Time/CCT Total # of Minutes Spent Total Time Spent with Patient: Total time spent is greater than 50% in coordination of care (as documented) at patient's floor/unit and/or counseling patient: Coding [place] [address] INT INP/OBS CARE MIN Patient Type Established History Comprehensive Exam Comprehensive Medical Decision Making High Complexity Diagnoses Acute on chronic respiratory failure with hypoxemia J96.21 Acute on chronic HFrEF (heart failure with reduced ejection fraction) I50.23 Type 2 diabetes mellitus with obesity E11.69; E66.9 Obstructive sleep apnea G47.33 Chronic obstructive pulmonary disease, unspecified COPD type J44.9 COPD type: unspecified COPD Hemoptysis R04.2 Morbid obesity with BMI of 50.0-59.9, adult E66.01; Z68.43 (5) COPD (chronic obstructive pulmonary disease) COPD type: unspecified COPD Qualified Code(s): J44.9 - Chronic obstructive pulmonary disease, unspecified
[2024-01-17 12:14] LABS: Adenovirus PCR Not Detected (NotDetected); Bordetella parapertussis PCR Not Detected (NotDetected); Bordetella pertussis PCR Not Detected (NotDetected); Chlamydia pneumoniae PCR Not Detected (NotDetected); Coronavirus 229E PCR Not Detected (NotDetected); Coronavirus CoV-2 (COVID19)PCR Not Detected (NotDetected); Coronavirus HKU1 PCR Not Detected (NotDetected); Coronavirus NL63 PCR Not Detected (NotDetected); Coronavirus OC43PCR Not Detected (NotDetected); Human Metapneumovirus PCR Not Detected (NotDetected); Influenza A PCR Not Detected (NotDetected); Influenza B PCR Not Detected (NotDetected); Mycoplasma pneumoniae PCR Not Detected (NotDetected); Parainfluenza Virus 1 PCR Not Detected (NotDetected); Parainfluenza Virus 2 PCR Not Detected (NotDetected); Parainfluenza Virus 3 PCR Not Detected (NotDetected); Parainfluenza Virus 4 PCR Not Detected (NotDetected); Respiratory Syncytial VirusPCR Not Detected (NotDetected); Rhinovirus/Enterovirus PCR Not Detected (NotDetected)
[2024-01-17] MEDS: MAGNESIUM SULFATE / D5W 1 GM/100 ML BAG IV STA (12:51)
[2024-01-17] MEDS: BUMETANIDE IV ONE (12:53)
[2024-01-17] MEDS ORDERED: DEXTROSE 50% 50 ML SYRINGE IV PRN (15:18)
[2024-01-17] MEDS ORDERED: CARBOHYDRATES FOR HYPOGLYCEMIA PO PRN (15:18)
[2024-01-17] MEDS ORDERED: ONDANSETRON INJ 2 MG/ML 2 ML VIAL IV PRN (15:18)
[2024-01-17] MEDS ORDERED: GLUCAGON FOR INJ 1 MG VIAL SQ PRN (15:18)
[2024-01-17] MEDS ORDERED: GLUCOSE 10 TAB/TUBE PO PRN (15:18)
[2024-01-17] MEDS ORDERED: ACETAMINOPHEN 325 MG TAB PO PRN (15:18)
[2024-01-17] MEDS ORDERED: ALBUT/IPRATROP 3MG/0.5MG NEB 3 ML VIAL NEB PRN (15:18)
[2024-01-17] MEDS ORDERED: NYSTATIN POWDER 15GM BTL EXT PRN (15:18)
[2024-01-17] MEDS ORDERED: TROLAMINE SALICYLATE 10% CRM 255 APPLN/85 GM TUBE EXT PRN (15:18)
--- NOTE | 2024-01-17 15:31 | Electrocardiogram Report ---
Test Reason : Blood Pressure : */* mmHG Vent. Rate : 105 BPM Atrial Rate : 105 BPM P-R Int : 168 ms QRS Dur : 110 ms QT Int : 360 ms P-R-T Axes : 27 -68 88 degrees QTcB Int : 475 ms Sinus tachycardia Possible Left atrial enlargement Left axis deviation Minimal voltage criteria for LVH, may be normal variant Septal infarct (cited on or before 21-Nov-2023) Abnormal ECG When compared with ECG of 21-Nov-2023 17:16, Aberrant conduction is no longer Present Confirmed by Rodney Cary ([id number]) on 01/17/2024 3:31:20 PM Referred By: Confirmed By: Rodney Cary
[2024-01-17 15:56] LABS: Base Excess VBG 4.2 mEq/L; HCO3 VBG 31 mmol/L; Oxygen Saturation VBG < 60.0 %; PCO2 VBG 52 mmHg (38-50); PO2 VBG 27 mmHg; pH VBG 7.38 (7.36-7.41)
[2024-01-17] MEDS: FUROSEMIDE 40 MG/4 ML VIAL IV SCH (17:13)
[2024-01-17] MEDS: INSULIN ASPART PER UNIT CHARGE SC SCH (17:13)
[2024-01-17] MEDS ORDERED: ENOXAPARIN INJ 40 MG/0.4 ML SYR SQ SCH (21:00)
[2024-01-17] MEDS: METOPROLOL SUCC 50MG EXT REL TAB PO SCH (21:23)
[2024-01-17] MEDS: LANTUS PER UNIT CHARGE SQ SCH (21:23)
[2024-01-17] MEDS: VALSARTAN/SACUBITRIL 103/97MG TAB PO SCH (21:23)
[2024-01-17] MEDS: ENOXAPARIN INJ 40 MG/0.4 ML SYR SQ SCH (21:24)
[2024-01-18 06:16] LABS: Basophils # (auto) 0.03 K/uL (0.00-0.20); Basophils % (auto) 0.3 %; Eosinophils # (auto) 0.23 K/uL (0.00-0.50); Eosinophils % (auto) 2.5 %; Hemoglobin 14.6 g/dl (14.0-18.0); Immature Granulocytes # (auto) 0.05 K/uL (0.01-0.20); Immature Granulocytes % (auto) 0.5 %; Lymphocytes # (auto) 1.85 K/uL (1.20-3.40); Lymphocytes % (auto) 19.8 %; Mean Corpuscular Hemoglobin 29.1 pg (25.0-34.0); Mean Corpuscular Volume 85.8 fL (80.0-100.0); Mean Platelet Volume 10.1 fL (9.4-12.4); Monocytes # (auto) 0.72 K/uL (0.11-0.59); Monocytes % (auto) 7.7 %; Neutrophils # (auto) 6.46 K/uL (1.40-6.50); Neutrophils % (auto) 69.2 %; Platelet Count 169 K/uL (130-400); RDW Coefficient of Variation 14.1 % (11.5-14.5); RDW Standard Deviation 43.7 fL (36.4-46.3); Red Blood Count 5.01 M/uL (4.70-6.10); White Blood Count 9.34 K/ul (4.8-10.8)
[2024-01-18] MEDS: FLUTICASONE/VILANTEROL 100/25MCG 14 PUFFS/INHALER INH SCH (08:28)
[2024-01-18] MEDS: ISOSORBIDE MONO EXTENDED REL 60 MG TABCR PO SCH (08:28)
[2024-01-18] MEDS: ATORVASTATIN 10 MG TAB PO SCH (08:28)
[2024-01-18] MEDS: ASPIRIN 81 MG ECTAB PO SCH (08:36)
[2024-01-18 09:05] LABS: Calcium 8.4 mg/dl (8.6-10.3); Creatinine Clr Calc Pharmacy 164.3 ml/min; Magnesium 1.5 mg/dl (1.7-2.4); Potassium 3.4 mmol/L (3.5-5.1)
[2024-01-18] MEDS: POTASSIUM CHLORIDE CRTAB 20 MEQ TABCR PO STA (10:38)
[2024-01-18] MEDS: MAGNESIUM SULFATE / D5W 1 GM/100 ML BAG IV SCH (10:38)
--- NOTE | 2024-01-18 18:29 | Hospitalist Progress Note ---
Date of Service January 18, 2024 Assessment & Plan (1) Acute on chronic HFrEF (heart failure with reduced ejection fraction): Plan: Here with respiratory failure as above and weight is up significantly from previous. Last echocardiogram on 10/12/2023 revealed severely reduced LVEF at 15-20% and global hypokinesis of the left ventricle BNP elevated at 940 on arrival (most recently 246 on 11/05/2023) Nitro-Bid 2% paste and Bumex 5 mg IV x 1 in the ED and now being diuresed with IV Lasix 80 Mg twice daily Has ICD in place for history of V. tach Weight is already down significantly and he is net -2.4 L Home torsemide dose may need to be increased on discharge although he is already on 100 Mg p.o. twice daily He claims he eats a low-sodium diet, but it seems that he still consumes quite a bit more fluid than he should-educated on 1500 mL fluid restriction at home Continue Daily weights, strict I's and O's, low-sodium diet, and increase fluid restriction to 1500 mL from 1200 mL at his request Continue home Toprol XL 100 Mg p.o. twice daily, Entresto 103/97 mg p.o. twice daily Consider adding on SGLT 2 inhibitor as an outpatient. Resume previous spironolactone-he apparently previously was on 50 Mg twice daily but is no longer on his home medication list-add back now Continue isosorbide Follows with [facility] cardiology Follow BMP, magnesium levels and replete electrolytes as needed-today give 2 g IV magnesium and 40 mEq potassium chloride (2) Acute on chronic respiratory failure with hypoxemia: Plan: Worsening SOB at rest that began on Sunday 12/2 H/o recurrent admissions for acute CHF with similar presentation On BiPAP on arrival and now weaned to 5 LNC which is his baseline O2 VB.31/46 on admission which is normal Acute respiratory failure is now resolved He has a CPAP at home and reports he has not been using it for fear he will be charged money for it. Case management discussed with patient and with his DME gus bermudez and they reassured that he will not be charged for it and that he already owns it. (3) Type 2 diabetes mellitus with obesity: Plan: Last A1c at 8.1% on 10/12/2023-repeat HgbA1c in the morning Patient is normally on Lantus insulin 70u HS-will use Lantus 35 u BID while inpatient SSI; with target BSG range 110-140mg/dL, CF 15, carb ratio 8 T2DM diet, BSG ACHS Adjust regimen as needed (4) Obstructive sleep apnea: Plan: Patient does have a CPAP at home but has not been using it for fear of being charged money He was educated by case management today that this is not the case after they discussed with [employer] patient (5) COPD (chronic obstructive pulmonary disease): Plan: BioFire negative Do not feel COPD exacerbation is contributing DuoNeb Q6R PRN for wheezing (6) Hemoptysis: Plan: Unchanged hemoptysis x several months; appears to be chronic May be secondary to pulmonary vascular congestion (per most recent pulmonary note); ?barotrauma None currently (7) Morbid obesity with BMI of 50.0-59.9, adult: Plan: BMI 48.3 Is now on Mounjaro for weight loss and diabetes-continue such Plan DVT prophylaxis-Lovenox SQ every 12 hours Disposition: Continued stay on PCU telemetry, but patient anxious for discharge- likely can be discharged to home on 01/18 Full code Admission and Anticipated Discharge Date Admission Date: January 17, 2024 Subjective Patient feeling much better, weaned to 5 L nasal cannula. He says that he has not had his portable concentrator for oxygen at home since it broke 2 months ago and has been using home tanks. He wonders if this contributed to his shortness of breath. He reports drinking a lot of sugar-free juice now rather than Sprite and eats a low-sodium diet, uses frozen vegetables. He also started on Mounjaro Telemetry with normal sinus rhythm and rates in the 60s to 80s Physical Exam Constitutional: WD/WN, vitals as above + morbidly obese Respiratory: normal respiratory effort, lungs clear to auscultation Cardiovascular: Rate/Rhythm: regular rate and regular rhythm Heart Sounds: no murmur Extremities: + edema (Trace pitting edema of the legs bilaterally) Psychiatric: A+Ox3, euthymic affect Results & Data Results & Data Vital Signs (Past 12 Hours) Vital Signs Temp Pulse Pulse Resp BP Pulse Ox O2 Del Method 01/18/24 15:38 36.3 C L 70 19 121/69 93 Nasal Cannula 01/18/24 14:24 84 01/18/24 11:17 36.4 C L 80 20 132/81 93 Nasal Cannula 01/18/24 08:00 Nasal Cannula 01/18/24 07:21 61 01/18/24 07:16 36.5 C 69 20 118/72 96 CPAP O2 Flow Rate 01/18/24 15:38 5 01/18/24 14:24 01/18/24 11:17 01/18/24 08:00 5 01/18/24 07:21 01/18/24 07:16 Laboratory Results CBC, BMP, troponin, magnesium, VBG reviewed PG Care Time/CCT Total # of Minutes Spent Total Time Spent with Patient: Total time spent is greater than 50% in coordination of care (as documented) at patient's floor/unit and/or counseling patient: Coding Level of Care Code 13530 SUB INP/OBS CARE 2/35MIN Diagnoses Acute on chronic HFrEF (heart failure with reduced ejection fraction) I50.23 Acute on chronic respiratory failure with hypoxemia J96.21 Type 2 diabetes mellitus with obesity E11.69; E66.9 Obstructive sleep apnea G47.33 Chronic obstructive pulmonary disease, unspecified COPD type J44.1 COPD type: COPD with acute exacerbation Hemoptysis R04.2 Morbid obesity with BMI of 50.0-59.9, adult E66.01; Z68.43 (5) COPD (chronic obstructive pulmonary disease) COPD type: COPD with acute exacerbation Qualified Code(s): J44.1 - Chronic obstructive pulmonary disease with (acute) exacerbation
[2024-01-18] MEDS: SPIRONOLACTONE 25 MG TAB PO SCH (19:54)
[2024-01-19] MEDS: MAGNESIUM SULFATE / D5W 1 GM/100 ML BAG IV SCH (00:04)
[2024-01-19] MEDS: POTASSIUM CHLORIDE CRTAB 20 MEQ TABCR PO STA (00:04)
--- NOTE | 2024-01-19 06:09 | Communication Note ---
Date of Service: January 19, 2024 Notified by nursing at approximately 23:30 that the patient had a drop in his HR to 40s with some junctional beats, later ranging from HR of 50s-70s in sinus rhythm. Patient asymptomatic. I ordered an EKG which showed vent. rate of 67, read as sinus rhythm, left axis deviation, incomplete left bundle branch block. I ordered additional potassium and magnesium sulfate repletion. HR remaining in 60s-70s. Discussed case with attending physician. Resident Activity Tracking Resident Involvement: Resident Care Provided Care Provided: Adult [facility]
[2024-01-19 06:43] LABS: BUN Creatinine Ratio 23.2 (10-20); Calcium 8.6 mg/dl (8.6-10.3); Creatinine Clr Calc Pharmacy 160.3 ml/min; Magnesium 2.1 mg/dl (1.7-2.4); Potassium 3.8 mmol/L (3.5-5.1)
[2024-01-19 07:04] LABS: Estimated Average Glucose 183 mg/dl
[2024-01-19] MEDS: hydrOXYzine HCl 25 MG TAB PO PRN (08:19)
--- NOTE | 2024-01-19 08:41 | Electrocardiogram Report ---
Test Reason : Blood Pressure : */* mmHG Vent. Rate : 67 BPM Atrial Rate : 67 BPM P-R Int : 182 ms QRS Dur : 112 ms QT Int : 458 ms P-R-T Axes : 34 -62 110 degrees QTcB Int : 483 ms Normal sinus rhythm Left axis deviation Left ventricular hypertrophy with QRS widening and repolarization abnormality Abnormal ECG When compared with ECG of 17-Jan-2024 10:59, Vent. rate has decreased by 38 bpm Criteria for Septal infarct are no longer Present Confirmed by Martell Flores ([id number]) on 01/19/2024 8:41:43 AM Referred By: REFERRED SELF Confirmed By: Martell Flores
--- NOTE | 2024-01-19 10:59 | Hospitalist Progress Note ---
Date of Service January 19, 2024 Assessment & Plan (1) Acute on chronic HFrEF (heart failure with reduced ejection fraction): Plan: Here with respiratory failure as above and weight is up significantly from previous. Last echocardiogram on 10/12/2023 revealed severely reduced LVEF at 15-20% and global hypokinesis of the left ventricle BNP elevated at 940 on arrival (most recently 246 on 11/05/2023) Nitro-Bid 2% paste and Bumex 5 mg IV x 1 in the ED and now being diuresed with IV Lasix 80 Mg twice daily Has ICD in place for history of V. tach. 4 beat run of V. tach overnight 01/18/2024 to 01/19/2024. No other arrhythmias Weight is already down significantly and he is net -3.06 L. Patient has been on furosemide 100 mg IV twice daily. Will discontinue that today and go back to patient's home dose of furosemide without increase at this time and monitor for another day and patient Home torsemide dose may need to be increased on discharge although he is already on 100 Mg p.o. twice daily He claims he eats a low-sodium diet, but it seems that he still consumes quite a bit more fluid than he should-educated on 1500 mL fluid restriction at home. Patient is noncompliant with fluid restriction as an inpatient. I do not believe that the patient has the intellectual capacity to monitor fluid at home. We did discuss the importance of weight management and follow-up with cardiology. Continue Daily weights, strict I's and O's, low-sodium diet. Continue fluid restriction at 1500 mL Continue home Toprol XL 100 Mg p.o. twice daily, Entresto 103/97 mg p.o. twice daily Consider adding on SGLT 2 inhibitor as an outpatient. Resume previous spironolactone-he apparently previously was on 50 Mg twice daily but is no longer on his home medication list-add back now Continue isosorbide Follows with [facility] cardiology. Will need follow-up within the next 7 to 14 days on discharge Follow BMP, magnesium levels and replete electrolytes as needed-today give 2 g IV magnesium and 40 mEq potassium chloride Magnesium is corrected to 2.1. Potassium is within the target range. Follow-up labs tomorrow. (2) Acute on chronic respiratory failure with hypoxemia: Plan: Worsening SOB at rest that began on Sunday 12/2 H/o recurrent admissions for acute CHF with similar presentation On BiPAP on arrival and now weaned to 5 LNC which is his baseline O2 VB.31/46 on admission which is normal Acute respiratory failure is now resolved Although it was reported that he has a CPAP at home and reports he has not been using it for fear he will be charged money for it, confirmed with and niece that he does not have a CPAP machine at home at this tiome and does not have portable tanks. Case management discussed with patient and with his DME company and they reassured that he will not be charged for it and that he already owns it. Will follow up with P prior to discharge Continue supplememntal O2 to maintain SpO2 greater than 90% (3) Type 2 diabetes mellitus with obesity: Plan: Last A1c at 8.1% on 10/12/2023-repeat HgbA1c in the morning Patient is normally on Lantus insulin 70u HS-will use Lantus 35 u BID while inpatient SSI; with target BSG range 110-140mg/dL, CF 15, carb ratio 8 T2DM diet, BSG ACHS Adjust regimen as needed (4) Obstructive sleep apnea: Plan: Patient reports that he does not have a CPAP at home He was educated by case management today that this is not the case after they discussed with [facility] patient No compliance data found in EMR. Will need follow up with DME (5) COPD (chronic obstructive pulmonary disease): Plan: BioFire negative Do not feel COPD exacerbation is contributing DuoNeb Q6R PRN for wheezing Pulmonary function tests from 11/03/2022 reviewed. FVC is 40% predicted. FEV1 is 36% of predicted. FEV1/FVC is preserved at 90%. This represents more of a restrictive pattern than obstructive pattern. Okay to continue supplemental oxygen to maintain SpO2 greater than 90%. Diffusion capacity is slightly reduced at 67% of predicted with no calculation for correction. Continue follow-up with pulmonary as an outpatient (6) Hemoptysis: Plan: Unchanged hemoptysis x several months; appears to be chronic May be secondary to pulmonary vascular congestion (per most recent pulmonary note); ?barotrauma Patient follows with pulmonary clinic as an outpatient. Will refer back to them for ongoing care. (7) Morbid obesity with BMI of 50.0-59.9, adult: Plan: BMI 48.3 Is now on Mounjaro for weight loss and diabetes-continue such Plan DVT prophylaxis-Lovenox SQ every 12 hours Disposition: Continued stay on PCU telemetry, but patient anxious for discharge. Long discussion with patient as well as extended family. At this time patient has severe hypoxia when leaving the home as he reports he does not have a functional portable oxygen concentrator and does not have any portable tanks. I spoke to [facility] patient desktop technician and they will drop off a portable tank for patient to be discharged home when he is medically ready. They will also follow-up with the patient next week to determine portable needs. Patient most likely is not eligible for any further portable oxygen concentrator's as he has broken several and will require portable tanks when he leaves the home. Full code Admission and Anticipated Discharge Date Admission Date: January 17, 2024 Supervising Physician Co-Signing Physician Notes chart reviewed, case d/w E Yuly PAC, as above Subjective Attending: Dr. Soto This is a 48-year-old male that was admitted 01/17/2024 for acute on chronic heart failure as well as acute on chronic respiratory failure. Baseline hypoxia at home requires 5 L of supplemental oxygen via nasal cannula to maintain SpO2 greater than 90%. Patient does have a defibrillator implanted for heart failure of less than 15% on most recent echocardiogram. He follows with [facility] cardiology and was most recently seen by Shyanne Stern PA-C. Patient presented with profound hypoxia and shortness of breath. He was placed on high flow supplemental oxygen. He has since been titrated down to his baseline of 5 L/min via nasal cannula and is oxygenating above 90%. Patient had a 4 beat run of V. tach overnight. Otherwise normal sinus rhythm. Patient's edema has corrected and is back to baseline. Patient feels as though he is ready for discharge. However, he has remained on furosemide 100 mg IV twice daily. Baseline diuretic at home is Demadex 100 mg p.o. twice daily. Patient's weight was evaluated. At his last cardiology visit 11/22/2023 he was 147.6 kg and appeared to be euvolemic. On standing scale today he was 145.5 kg. Cumulative I's and O's were reviewed and patient is 3 L negative. Patient has no shortness of breath. He denies chest pain. He reports that his edema is corrected back to baseline. He has chronic hemoptysis and reports that he has not had any hemoptysis in the last 24 hours. He does report ongoing hemoptysis at home and had some yesterday here in the hospital. Discussed case with nursing. Patient continues to be noncompliant with fluid restriction. He is cooperative and is using urinal. Patient has no other acute complaints at this time. Review of Systems 2 Review of Systems: A total of 10 systems was reviewed and is negative other than as listed in the HPI Physical Exam 2 Physical Exam: GENERAL : No acute distress EYES: No icterus, gaze conjugate NOSE: No evidence of epistaxis MOUTH: No lesions or candidiasis NECK: Supple LUNGS: CTA B/L, no wheezes, rales or rhonchi. Good inspiratory effort HEART: Regular, rate controlled ABDOMEN: Soft, NT, ND, BS Present EXTREMITIES: No LE edema, pedal pulses intact. Chronic venous stasis. Patient has good sensation and no pain to the pretibial region NEURO: A&OX3 Results & Data Results & Data Vital Signs (Past 12 Hours) Vital Signs Temp Pulse Pulse Resp BP BP Pulse Ox 01/19/24 08:00 01/19/24 07:13 73 17 116/76 96 01/19/24 06:59 64 01/19/24 03:13 36.2 C L 74 19 118/75 93 01/18/24 23:12 36.6 C 75 16 125/86 98 01/18/24 23:11 68 O2 Del Method O2 Flow Rate 01/19/24 08:00 Nasal Cannula 5 01/19/24 07:13 Nasal Cannula 5 01/19/24 06:59 01/19/24 03:13 Nasal Cannula 01/18/24 23:12 Nasal Cannula 01/18/24 23:11 Laboratory Results 01/18/24 05:40 01/19/24 05:49 Laboratory Tests 01/17/24 01/18/24 01/19/24 10:56 05:40 05:49 Magnesium 1.6 L 1.5 L 2.1 Diagnostic Findings Chest X-Ray 01/17/24 10:52 XR chest 1V portable HISTORY: 48 years-old Male Chest pain, nonspecific COMPARISON: 11/21/2023 TECHNIQUE: AP view of the chest FINDINGS: Single lead left subclavian pacer. Cardiomegaly. Pulmonary vascular congestion with interstitial coarsening. There is no pneumothorax. Mid to lower lung zone predominant consolidation with layering small pleural effusions, similar in appearance to the prior study. Bones appear grossly intact. IMPRESSION: 1. Cardiomegaly with pulmonary edema. 2. Small pleural effusions with bibasilar consolidation suspicious for pneumonia. ACT 112: Negative or not required by law. The above report was generated using voice recognition software. It may contain grammatical, syntax or spelling errors. Electronically signed by: Sony Irby M.D. 01/17/2024 11:17 AM PG Care Time/CCT Total # of Minutes Spent Total Time Spent with Patient: Total time spent is greater than 50% in coordination of care (as documented) at patient's floor/unit and/or counseling patient: 45 minutes including discussion with patient, extended family by telephone, attending physician, and case management. Coding Level of Care Code 42263 SUB INP/OBS CARE 3/50MIN Medical Decision Making High Complexity Diagnoses Acute on chronic HFrEF (heart failure with reduced ejection fraction) I50.23 Acute on chronic respiratory failure with hypoxemia J96.21 Type 2 diabetes mellitus with obesity E11.69; E66.9 Obstructive sleep apnea G47.33 Chronic obstructive pulmonary disease, unspecified COPD type J44.1 COPD type: COPD with acute exacerbation Hemoptysis R04.2 Morbid obesity with BMI of 50.0-59.9, adult E66.01; Z68.43 Time Spent (min) 45 (5) COPD (chronic obstructive pulmonary disease) COPD type: COPD with acute exacerbation Qualified Code(s): J44.1 - Chronic obstructive pulmonary disease with (acute) exacerbation
--- NOTE | 2024-01-19 13:11 | XRay Report ---
XR chest 1V portable HISTORY: 48 years-old Male Hypoxia, CHF acute hypoxia with congestive heart failure COMPARISON: 01/17/2024 TECHNIQUE: AP view of the chest FINDINGS: Cardiac silhouette is enlarged. Single lead left subclavian pacer/AICD. Pulmonary vascular congestion . Trace pleural effusions have decreased from prior. There is improved aeration of the lung bases. No pneumothorax. Bones appear grossly intact. IMPRESSION: 1. Cardiomegaly with resolving pulmonary edema. 2. Trace pleural effusions have decreased in size and there is improved aeration of the lung bases. ACT 112: Negative or not required by law. The above report was generated using voice recognition software. It may contain grammatical, syntax o r spelling errors. Electronically signed by: Sony Irby M.D. 01/19/2024 1:10 PM
--- OUTSIDE RECORDS SUMMARY | 2024-01-19 20:33 | External Medical Summary | Summary of Care ---
Author Name Unknown Organization [facility] Address [address] [facility] [address] Phone [phone] Care Team Providers Care Terrazzo Worker Apprentice Name Role Phone Richa Burr Primary Care Provide r Encounter Details Date Type Department Care Team (Late st Contact Info) Description 12/21/2023 Result Scan Unspecified Department Shon Hernandez, DO [address] [place] [id number] <No scans attached> Allergies Active Allergy [...] as of this encounter (statuses as of 12/21/2023) Medications ASPIRIN EC 81 MG PO TBECIndications: HTN, goal below 140/90 TAKR 1 TABLET EVERY DAY BY MOUTH 30 Tab 3 4 Active Additional Information Patient taking differently: 81 mgOralDaily(AM), Reported on 06/20/2022 Cholecalciferol (VITAMIN D-3) 1000 units Capsule Take 3 Capsules by mouth in the morning and 3 Capsules before bedtime. Active nitroglycerin (NITROSTAT) 0.4 MG SUBLIndications: Acute on chronic diastolic heart failure (HCC),HTN, goal below 140/[address] 1 Tab under the tongue every 5 minutes as needed for Pain, Chest. up to 3 doses in 15 minutes 100 Tab 5 0 Active Additional Information Patient not taking.Reported on 06/20/2022 budesonide (PULMICORT) 0.25 MG/2ML nebulizer solution Inhale 0.25 mg via nebulizer in the morning. As needed . Active CPAP every night at bedtime. Active Lantus SoloStar 100 UNIT/ML Subcutaneous Solution Pen-injector (Insulin Glargine) Inject 20 Units under the skin every night at bedtime. Hold for blood sugar less than 200. 1 Each 1 1 Active Pen [place] 31G X 8 MM Use with nightly lantus injection. 50 Each 1 1 Active Isosorbide Mononitrate ER 30 MG Oral Tablet Extended Release 24 Hour (Imdur)Indicatio ns:Essential hypertension with goal blood pressure less than 140/90 TAKE 2 TABLETS BY MOUTH DAILY 60 Tablet 1 2 Active Metoprolol Succinate ER 100 MG Oral Tablet Extended Release 24 Hour (toPROL XL) Take by mouth 1 Tablet in the morning AND 1 Tablet before bedtime. 180 Tablet 3 2 Active Sacubitril-Valsa rtan 97-103 MG Oral Tablet (Entresto) Take by mouth 1 Tablet in the morning AND 1 Tablet before bedtime. 180 Tablet 3 2 Active Pulse Oximeter For Finger Place on finger to monitor oxygen levels. 1 Each 2 Active Spironolactone 25 MG Oral Tablet (Aldactone)Indic ations:Chronic systolic HF (heart failure) (HCC),Hypertensi on goal BP (blood pressure) < 130/80 Take 1 tablets in the morning and 1 tablet in the afternoon 2 Active Symbicort 160-4.5 MCG/ACT Inhalation Aerosol INHALE 2 PUFFS BY MOUTH TWICE DAILY RINSE MOUTH AFTER USE 4 Active Ciprofloxacin-de xAMETHasone 0.3-0.1 % Otic Suspension (Cipro-Dex) 4 Active FreeStyle Karla 2 Sensor CHANGE SENSOR EVERY 14 DAYS 4 Active Mounjaro 2.5 MG/0.5ML Subcutaneous Solution Pen-injector 4 Active Torsemide 100 MG Oral Tablet (Demadex) Take 1 Tablet by mouth in the morning and 1 Tablet before bedtime. 4 Active Triamcinolone Acetonide 0.1 % External Ointment (Aristocort) Apply to both legs, abdomen twice daily 80 g 5 4 Active documented as of this encounter (statuses as of 12/21/2023) Active Problems Problem Noted Date Diagnosed Date [...] disturbance 09/19/2013 Drowsiness 09/19/2013 Diabetic polyneuropathy 09/19/2013 Overview (04/30/2015): ICD-10 update of inactive term Diarrhea 08/18/2013 [...] ideal weight or BMI > 40) 06/04/2012 Overview (06/04/2012): BMI= 51.62 06/04/12 Dermatitis 01/02/2012 Tinea cruris 01/02/2012 Stasis dermatitis of both legs 01/02/2012 Edema 01/02/2012 Diabetes mellitus type 2 in obese 12/25/2011 Anxiety state 09/26/2011 Mental subnormality 06/12/2011 VEINOUS STASIS ULCERS LEFT LEG 01/02/2011 STAPH SKIN INFECTION 09/22/2010 Obstructive sleep apnea 04/07/2010 Overview (11/13/2016): 03/29/11 -- auto BIPAP 28/11 without oxygen 01/18/11 split PSG -- AHI 28, CPAP 10 PSG -- AHI 91 AHP ICD-10 update of inactive term Body mass index (BMI) of 45.0-49.9 in adult 02/12 Overview (05/25/2015): ICD-10 update of inactive term LEFT ANKLE FRACTURE 200711/12/2009 Hereditary and idiopathic peripheral neuropathy 11/12/2009 Other specific developmental learning difficulti es 11/12/2009 Non-adherence to medical treatment documented as of this encounter (statuses as of 12/21/2023) Resolved Problems Problem Noted Date Diagnosed Date Resolved Date Acute kidney injury (nontraumatic) 06/09/2020 06/11/2020 Hemoptysis 06/07/2020 06/11/2020 Acute on chronic respiratory failure with hypoxia 11/02/2018 06/11/2020 HTN, goal below 140/80 04/09/201310/08 HTN, goal below 130/80 09/27/201204/09 Genetic Sleep Disorder [facility] Other*[id number] 12/21/2010 09/15/2015 HTN, goal below 140/90 11/12/200909/27 Family history of diabetes mellitus 11/12/2009 03/07/2011 Family history of other endo crine and metabolic diseases(V18.19) 11/12/2009 03/07/2011 Unresponsive episode 021 documented as of this encounter (statuses as of 12/21/2023) Immunizations Name Administration Dates Next Due Pneumococcal Polysaccharide PPV23 (Pneumovax) 08/07/2012 Seasonal Influenza Vac., MDV , IM, 0.5 mL (Fluzone) 12/14/2013,10/31/2012,11/16/2011,12/30 TDAP, Age 7 and older, IM (Adacel) 12/15/2010 documented as of this encounter Social History Tobacco Use Types Packs/Day Years Used Date Smoking Tobacco: Former Cigarettes 0.2 2 Smokeless Tobacco: Never Comments:Smoked a little age 14 - 16 Alcohol Use Standard Drinks/Week Comments Yes 0 (1 standard drink = 0.6 oz pure alcohol) wine coolers every once in [employer] Answer Date Recorded Do you have trouble paying y our heating, water, or electric bill? (Adult - for ages 18 years and over) Not on file 07/31/2023 Is your family able to pay t he heat, water, or electric bill? (Household - for ages 0-17 years) Not on file 07/31/2023 Does your family have access to good internet? (Household - for ages 0-17 years) Not on file 07/31/2023 Social Connections Answer Date Recorded How often do you feel lonely or isolated from those around you? (Adult - for ages 18 years and over) Not on file 07/31/2023 Sex and Gender Information Value Date Recorded Sex Assigned at Not on file Legal Sex Male 5:44 AM EST Gender Identity Not on file Sexual Orientation Not on file documented as of this encounter Functional Status * Are you deaf or do you have serious difficulty hearing? Answer Date of Assessment Author No 06/07/2020 2:13 PM Luz Elena Leary RN * Are you blind or do you have serious difficulty seeing, even when wearing glasses? Answer Date of Assessment Author No 06/07/2020 2:13 PM LONGT Luz Elena Reddy RN * Do you have serious difficulty walking or climbing stairs? (5 years old or older) Answer Date of Assessment Author Yes 06/09/2020 11:55 AM LONGT Shahana Haddad, CHRISTIAN * Do you have difficulty dressing or bathing? (5 years old or older) Answer Date of Assessment Author Yes 06/07/2020 2:13 PM EDT McMurtrie , Luz Elena M, RN * Because of a physical, mental, or emotional condition, do you have difficulty doing errands alone such as visiting a doctors office or shopping? (15 years old or older) Answer Date of Assessment Author Yes 06/07/2020 2:13 PM EDT Luz Elena Reddy RN documented as of this encounter Mental Status * Because of a physical, mental, or emotional condition, do you have serious difficulty concentrating, remembering, or making decisions? (5 years old or older) Answer Entry Date Author No 06/07/2020 2:13 PM EDT Luz Elena Reddy RN documented in this encounter Plan of Treatment Health Maintenance Due Date Last Done Comments HIV Screening 12/18/1991 Depression Screening 04/21/2014 04/21/2013 Albumin/Creatinine Ratio 01/16/2015 014, 10/08/2013, 04/28/2013, Additional history exists Diabetic Foot Exam 01/16/2015 01/16/2014, 0 02/25/2013, 02/25/2013, Additional history exists Diabetic Eye Exam 04/27/2017 04/27/2016, , 04/27/2016, Additional history exists Lipid Panel 12/18/2018 12/18/2013, 07/2013, 04/28/2013, Additional history exists Cologuard 2021 Colonoscopy 2021 Colorectal Cancer Screening 2021 Fecal Occult Blood Test 2021 Sigmoidoscopy 2021 HbA1c 06/29/2023 12/29/2022, 06/12, 06/08/2020, Additional history exists COVID-19 Vaccine ( season) 2023 12/20/2022, 01/12/2022, 03/22/2021, Additional history exists Influenza Vaccine (FLU shot) (#1) 2023 11/25/2020, 10/21/2019, 10/21/2019, Additional history exists GFR 12/30/2023 12/29/2022, 07/13, 12/28/2021, Additional history exists DTap/Tdap Vaccines (3 - Td or Tdap) 02/02/2025 02/02/2015, 12/15/2010 Hepatitis B Vaccine Completed 11/23/2015, 11/23/2015, 05/24/2015, Additional history exists Pneumococcal Vaccine: Pediatrics (0 to 5 Years) and At-Risk Patients (6 to 64 Years) Completed 04/19/2023, 03/11/2015, 08/07/2012 HPV (Gardasil) Vaccine Aged Out No lo nger eligible based on patient's age to complete this topic MENINGOCOCCAL (MENACTRA/MENVEO) Aged Out No longer eligible based on patient's age to complete this topic documented as of this encounter Medical Devices Not on filedocumented as of this encounter Procedures Procedure Name Priority Date/Time Associated Diagnosis Comments CARDIOLOGY SCANNED RESULT 12/21/2023 documented in this encounter Results * CARDIOLOGY SCANNED RESULT (12/21/2023) 12/21/2023 us Shon Hernandez DO OTHER Final Resul t documented in this encounter Advance Directives * Full Code (Latest Code Status on File) Date Activated Date Inactivated Comments 06/07/2020 1:09 PM 06/11/2020 6:57 PM This order r eflects the patients wishes and were consensually agreed upon. Question Answer Comments Discussion of Advance Directives occurred with: Patient * Full Code Date Activated Date Inactivated Comments 11/02/2018 10:45 PM 11/09/2018 6:29 PM This order reflects the patients wishes and were consensually agreed upon. Question Answer Comments Discussion of Advance Directives occurred with: Patient * Full Code Date Activated Date Inactivated Comments 09/17/2012 12:26 PM 09/18/2012 4:54 PM This order re flects the patients wishes and were consensually agreed upon. Care Teams Terrazzo Worker Apprentice Relationship Specialty Start Date End Date Richa Burr CRNP [address] [address] PCP - General Nurse Practitioner 12/29/22 documented as of this encounter
--- OUTSIDE RECORDS SUMMARY | 2024-01-19 20:33 | External Medical Summary | Summary of Care ---
Author Name Unknown Organization [facility] Address [address] [place] [address] Phone [phone] Care Team Providers Care Transporter Radiology Name Role Phone Richa Burr Primary Care Provide r Reason for Referral * Evaluate & Treat - Unlimited Visits (Within 10 days (routine)) - Pending Review Specialty Diagnoses / Procedures Referred By Brandon ramos Referred To Contact Oral/Maxillofacial Surgery / Oral Maxillary Surgery Diagnoses Heart problem Extraction of tooth needed Binu Cross DMD [address] [address] Phone: tel: fax: Shon Trevino DMD [address] [place] [address] Phone: tel: fax: Referral ID Status Reason Start Date Expiration Date Visits Requested Visits Authorized [id number] Pending Review Specialty Services Required 4 [phone] Question Answer Referral Priority Within 10 days (routine) Where should this appointment be scheduled? [facility] Reason for Referral [place] Teeth, other Impacted Teeth, or Need for Extraction Identify the specific details to guide scheduling Extracting 11 or more teeth Comments Notes posted. Encounter Details Date Type Department Care Team (Late st Contact Info) Description 12/31/2023 Orders Only [facility] [place] [address] [place] [address] Ext *DO NOT REMOVE THIS DEPARTMENT* [place] [id number] Request, External Referral Heart problem*; Extraction of tooth needed Allergies Active Allergy Reactions Criticality Noted Date [...] as of this encounter (statuses as of 12/31/2023) Medications ASPIRIN EC 81 MG PO TBECIndications: [...] 200. 1 Each 1 1 Active Pen [place] 31G X 8 MM Use with nightly [...] as of this encounter (statuses as of 12/31/2023) Active Problems Problem Noted Date Diagnosed Date [...] update of inactive term LEFT ANKLE FRACTURE 2008 11/12/2009 Hereditary and idiopathic peripheral neuropathy 11/12/2009 Other specific developmental learning difficulti es 11/12/2009 Non-adherence to medical treatment documented as of this encounter (statuses as of 12/31/2023) Resolved Problems Problem Noted Date Diagnosed Date Resolved Date Acute kidney injury (nontraumatic) 06/09/2020 06/11/2020 Hemoptysis 06/07/2020 06/11/2020 Acute on chronic respiratory failure with hypoxia 11/02/2018 06/11/2020 HTN, goal below 140/80 04/09/201310/08 HTN, goal below 130/80 09/27/201204/09 Genetic Sleep Disorder [facility] Other*[id number] 12/21/2010 09/15/2015 HTN, goal below 140/90 11/12/200909/27 Family history of diabetes mellitus 11/12/2009 03/07/2011 Family history of other endo crine and metabolic diseases(V18.19) 11/12/2009 03/07/2011 Unresponsive episode 021 documented as of this encounter (statuses as of 12/31/2023) Immunizations Name Administration Dates Next Due Pneumococcal [...] alcohol) wine coolers every once in awhile Utilities Answer Date Recorded Do you have trouble [...] of Assessment Author No 06/07/2020 2:13 PM EDT Luz Elena Reddy RN * Are you blind or do you have serious difficulty seeing, even when wearing glasses? Answer Date of Assessment Author No 06/07/2020 2:13 PM EDT Luz Elena Reddy RN * Do you have serious difficulty walking or climbing stairs? (5 years old or older) Answer Date of Assessment Author Yes 06/09/2020 11:55 AM EDT Shahana Haddad MSW * Do you have difficulty dressing or bathing? (5 years old or older) Answer Date of Assessment Author Yes 06/07/2020 2:13 PM EDT Luz Elena Reddy RN * Because of a physical, mental, or emotional condition, do you have difficulty doing errands alone such as visiting a doctors office or shopping? (15 years old or older) Answer Date of Assessment Author Yes 06/07/2020 2:13 PM LONGT Luz Elena Reddy RN documented as of this encounter Mental Status * Because of a physical, mental, or emotional condition, do you have serious difficulty concentrating, remembering, or making decisions? (5 years old or older) Answer Entry Date Author No 06/07/2020 2:13 PM EDT Luz Elena Reddy RN documented in this encounter Plan of Treatment Scheduled Referrals Name Type Priority Associated Diagnoses Order Schedule ORAL & MAXILLOFACIAL SURGERY REFERRAL OP Referral Within 10 days (routine) Heart problem Extraction of tooth needed Ordered: 12/31/2023 Health Maintenance Due Date Last Done Comments [...] Not on filedocumented as of this encounter Visit Diagnoses Diagnosis Heart problem- Primary Extraction of tooth needed documented in this encounter Advance Directives * [...] and were consensually agreed upon. Care Teams Transporter Radiology Relationship Specialty Start Date End Date Richa Burr CRNP [address] [address] PCP - General Nurse Practitioner 12/29/22 documented as of this encounter
[2024-01-19] MEDS: TORSEMIDE 100 MG TAB PO SCH (20:51)
[2024-01-19 23:38] VITALS: TEMP 98.4
[2024-01-20 07:07] LABS: BUN Creatinine Ratio 24.8 (10-20); Calcium 8.6 mg/dl (8.6-10.3); Magnesium 1.8 mg/dl (1.7-2.4); Potassium 3.7 mmol/L (3.5-5.1)
[2024-01-20 11:01] VITALS: BP 121/81; PULSE 75; RESP 19; O2SAT 94
--- NOTE | 2024-01-20 11:27 | Discharge Summary ---
Discharge Summary Date of Service January 20, 2024 Principal Dx & Hospital Course #1 = Principal Diagnosis (1) Acute on chronic HFrEF (heart failure with reduced ejection fraction): Here with respiratory failure as above and weight is up significantly from previous. Last echocardiogram on 10/12/2023 revealed severely reduced LVEF at 15-20% and global hypokinesis of the left ventricle BNP elevated at 940 on arrival (most recently 246 on 11/05/2023) Nitro-Bid 2% paste and Bumex 5 mg IV x 1 in the ED and now being diuresed with IV Lasix 80 Mg twice daily Has ICD in place for history of V. tach. 4 beat run of V. tach overnight 01/18/2024 to 01/19/2024. No other arrhythmias Weight is already down significantly and he is net -5.7 L. Patient has been on furosemide 100 mg IV twice daily. Will discontinue that and go back to patient's home dose of furosemide without increase at this time. Patient instructed to call his pulverizer mill operator with weight gain of 3 pounds or more He claims he eats a low-sodium diet, but it seems that he still consumes quite a bit more fluid than he should-educated on 1500 mL fluid restriction at home. Patient is noncompliant with fluid restriction as an inpatient. I do not believe that the patient has the intellectual capacity to monitor fluid at home but have advised to limit to 1200 ml daily. We did discuss the importance of weight management and follow-up with cardiology. Continue Daily weights, strict I's and O's, low-sodium diet. Continue fluid restriction at 1200 mL at home Continue home Toprol XL 100 Mg p.o. twice daily, Entresto 103/97 mg p.o. twice daily Consider adding on SGLT 2 inhibitor as an outpatient. Resume previous spironolactone-he apparently previously was on 50 Mg twice daily but is no longer on his home medication list-add back now on discharge. Rx sent to his pharmacy Continue isosorbide Follows with [facility] cardiology. Will need follow-up within the next 7 to 14 days on discharge Follow BMP, magnesium levels and replete electrolytes as needed-today give 2 g IV magnesium and 40 mEq potassium chloride Magnesium is corrected to 2.1. Potassium is within the target range. Follow-up labs tomorrow. (2) Acute on chronic respiratory failure with hypoxemia: Worsening SOB at rest that began on Sunday 12/2 H/o recurrent admissions for acute CHF with similar presentation On BiPAP on arrival and now weaned to 5 LNC which is his baseline O2 VB.31/46 on admission which is normal Acute respiratory failure is now resolved Although it was reported that he has a CPAP at home and reports he has not been using it for fear he will be charged money for it, confirmed with and niece that he does not have a CPAP machine at home at this tiome and does not have portable tanks. Case management discussed with patient and with his [employer] company and they reassured that he will not be charged for it and that he already owns it. I met with [facility] patient chemistry quality control technician. He provided a portable tank for the patient to take home today. They will be in touch with him this week regarding portable oxygen moving forward. Continue supplemental O2 to maintain SpO2 greater than 90% (3) Type 2 diabetes mellitus with obesity: Last A1c at 8.1% on 10/12/2023-repeat HgbA1c in the morning Patient is normally on Lantus insulin 70u HS-will use Lantus 35 u BID while inpatient SSI; with target BSG range 110-140mg/dL, CF 15, carb ratio 8 T2DM diet, BSG ACHS Patient is blood sugar seem to be better controlled with 35 units twice daily while inpatient we will continue this as an outpatient. Prescription for insulin glargine (Lantus) pens sent to patient's pharmacy (4) Obstructive sleep apnea: Patient reports that he does not have a CPAP machine at home. He is encouraged to follow through with pulmonary and with [facility] patient. His mask that he used inpatient and headgear is being sent home with him so the [facility] knows what he was comfortable with and can hopefully match that at home. No compliance data found in EMR. Will need follow up with pulmonary as an outpatient as well as with [facility] [place] patient (5) COPD (chronic obstructive pulmonary disease): BioFire negative Do not feel COPD exacerbation is contributing DuoNeb Q6R PRN for wheezing -patient reports that he has a nebulizer at home. He is encouraged to continue to use that for bronchospasm as needed. Pulmonary function tests from 11/03/2022 reviewed. FVC is 40% predicted. FEV1 is 36% of predicted. FEV1/FVC is preserved at 90%. This represents more of a restrictive pattern than obstructive pattern. Okay to continue supplemental oxygen to maintain SpO2 greater than 90%. Diffusion capacity is slightly reduced at 67% of predicted with no calculation for correction. Continue follow-up with pulmonary as an outpatient (6) Hemoptysis: Unchanged hemoptysis x several months; appears to be chronic May be secondary to pulmonary vascular congestion (per most recent pulmonary note); ?barotrauma Patient follows with pulmonary clinic as an outpatient. Will refer back to them for ongoing care. Patient received enoxaparin (Lasix) 40 mg subcutaneously twice daily for DVT prophylaxis while inpatient. He had no increase in hemoptysis. Patient denied hemoptysis on the day of discharge. (7) Morbid obesity with BMI of 50.0-59.9, adult: BMI 48.3 Is now on Mounjaro for weight loss and diabetes-continue such Continue to work on weight loss and fluid management with primary care provider Plan DVT prophylaxis-Lovenox SQ every 12 hours. No anticoagulation was prescribed to the patient on discharge Disposition: Continued stay on PCU telemetry, but patient anxious for discharge. Long discussion with patient as well as extended family. At this time patient has severe hypoxia when leaving the home as he reports he does not have a functional portable oxygen concentrator and does not have any portable tanks. I spoke to [facility] patient chemistry quality control technician and they dropped off a portable tank for patient to be discharged home when he is discharged. They will also follow- up with the patient next week to determine portable needs. Patient most likely is not eligible for any further portable oxygen concentrator's as he has broken several and will require portable tanks when he leaves the home. He is aware that he will need to have small portable tanks that he takes with him when he leaves the apartment. Of note: Patient reports that sweatshirt was lost between the emergency department and patient room. supervisor anodizing was notified that patient did not have a jacket or shirt to wear. He was able to provide the patient with a shirt and jacket to wear home. Admission HPI Per Admitting Provider Alok is a 48-year-old male with PMH of T2DM, MARIELENA, congestive heart failure, COPD, AICD, HTN, urinary bladder incontinence, and nonischemic cardiomyopathy. He presented via EMS on 01/16 for worsening SOB x 3 days. His SOB developed on Saturday 01/13. He endorses both SOB at rest and with exertion. He is unable to lie on his back; endorses orthopnea. He reports this feels similar to prior episodes of CHF exacerbations. No sick contacts. No history of DVT/PE. He does use supplemental oxygen at nighttime (5L NC). In regard to CPAP, he is supposed to use a CPAP at night, but reports he currently does not have a CPAP and cannot get another one. Patient reports he took his regular morning medicine today. He reports good compliance with his medications at home. He reports he took his regular Lantus insulin 70 units last night. No recent change in medications. He manages his own medicine at home. He also endorses watching his salt intake and reports no recent weight changes. He reports he takes his weight daily, and he was around 160 kg on the scale today (please note: patients discharge weight was 146kg in November, and admission weight is 161kg today). He reports he is still producing urine. Patient denies smoking, tobacco use, or recent alcohol use. Patient is hypertensive at 154/120, tachycardic at 111 bpm, and tachypneic at 31 RPM; SpO2 95% on BiPAP. ED course: Magnesium sulfate 1 g IV Nitro-Bid 2% 1 inch exterior DuoNeb 3 mL Bumetanide 5 mg IV ROS: Patient endorses lightheadedness with walking, excessive fatigue, SOB at rest and with exertion, orthopnea, pleuritic CP, hemoptysis (which has been going on for months, per patient), and chronic neuropathy in the legs. Patient denies fever, chills, night sweats, falls, fainting, headache, chest pain, chest pressure, chest palpitations, abdominal pain, N/V/D, burning with urination, blood in the urine or stool, or changes in urinary/bowel habits. Admission Exam Per Admitting Provider Physical Exam: General: Mild respiratory distress; lethargic; non-toxic appearing; cooperative; SpO2 95% on BiPAP HEENT: normocephalic, atraumatic; no scleral icterus; PERRLA w/ EOMs intact; vision and hearing grossly intact Neck: supple; no lymphadenopathy; trachea midline Skin: warm, dry without signs of tenting; no cyanosis; no rashes, bruising, lesions, or erythema noted CV: chest wall NTP; RR, around 95-100 bpm; S1/S2 normal; no murmurs/rubs/gallops; pulses intact and symmetric at radial, DP, and PT Lungs: Mild respiratory distress; symmetrical chest wall expansion; mild bibasilar rales in the middle/lower lung obrien bilaterally; no wheezing ABD: Soft, NTP; BS present; no rebound/guarding; distention secondary to body habitus; some superficial bruising on the lower left abdomen MSK: no tics or fasciculations; +1 pitting edema and significant swelling in the LEs bilaterally; thick, wooden texture Neuro: A&Ox3; normal mood and affect; fluent speech; no focal deficits; patient reports no sensation in the lower extremities bilaterally assessed via light touch Discharge Exam GENERAL : No acute distress EYES: No icterus, gaze conjugate NOSE: No evidence of epistaxis MOUTH: No lesions or candidiasis NECK: Supple LUNGS: CTA B/L, no wheezes, rales or rhonchi. Good inspiratory effort HEART: Regular, rate controlled ABDOMEN: Soft, NT, ND, BS Present EXTREMITIES: Trace right lower leg edema. No edema to the left lower extremity. Pulses equal bilaterally. Chronic venous stasis. Patient has good sensation and no pain to the pretibial region NEURO: A&OX3 Discharge Plan Discharge Items Patient Disposition: Home - Self-Care Reason For Visit: ACUTE CHF Discharge Diagnosis: Acute on chronic congestive heart failure with acute on chronic respiratory failure Activity: Resume your previous activity Lifting: Gradually increase as tolerated Bathing: No limitations Exercise/Sports: Gradually increase as tolerated Weightbearing: Full weightbearing Non-emergency contact: Primary Care Provider Call non-emergency contact if: you have a fever Follow-up/Referrals: Gosia Becker MD [Primary Care Provider] - Diet: Carb Consistent or DM2 and Heart Healthy Fluids: 1200ml (5 cups) Diet Comment: You should be sure to limit your fluid intake Addtl Attending Provider Instructions: Patient was admitted for acute on chronic congestive heart failure with acute on chronic respiratory failure. Is currently at baseline with oxygen requirements of 5 L/min via nasal cannula A portable tank was provided to the patient to be used outside of the home. He is aware that he must use this whenever he leaves the home and that he requires supplemental oxygen 24 hours a day every day. [facility] patient has been contacted and will be in touch with him this week to arrange for portable tanks when he leaves his apartment. Patient currently is at base weight at 144 kg. He is encouraged to continue with his diuretics and follow-up with cardiology within 7 to 10 days Patient is instructed to avoid processed foods including fast food, chips, pretzels, other junk food Patient should limit intake of soda and other carbonated beverages throughout the day and try to substitute water for these beverages. Patient should call his cardiology office with a weight increase of 3 pounds or more and should continue to weigh himself daily. Patient is encouraged to follow through with CPAP. His mask from the hospital is being sent home with him since he did well with that last night and felt comfortable with that mask and headgear. Pending Studies at Discharge: No Stand-Alone Forms: My [facility] Medications and DC Order Prescriptions: New spironolactone 25 mg Tablet 50 mg PO BID17 Qty: 120 0RF insulin glargine 100 unit/mL (3 mL) insulin pen 35 unit subcut BID Qty: 3 3RF Continued (DME) FreeStyle Karla 3 [place] Misc See Rx Instructions .Route Qty: 1 1RF Rx Instructions: moniotr blood sugar (DME) FreeStyle Karla 3 [place] Misc See Rx Instructions .ROUTE .MEDSUPPLY Qty: 1 0RF Rx Instructions: use with karla 3 + sensor (DME) pen needle, diabetic [Comfort EZ Pen [place]] 31 gauge x 5/16" needle See Rx Instructions .Route Qty: 100 3RF Rx Instructions: use when administering insuling daily Entresto 97-103 mg tablet 1 tab PO BID Qty: 60 5RF metoprolol succinate 100 mg tablet extended release 24 hr 100 mg PO BID Qty: 60 5RF budesonide 0.25 mg/2 mL suspension for nebulization 0.25 mg inhalation DAILY PRN (Reason: Shortness Of Breath) budesonide-formoterol [Symbicort] 160-4.5 mcg/actuation HFA aerosol inhaler 2 inh inhalation BID Qty: 3 3RF Rx Instructions: 2 puffs twice per day. Rinse mouth after each use (DME) OneTouch Verio test strips Strip See Rx Instructions miscellaneous .MEDSUPPLY Qty: 100 5RF Rx Instructions: check 3x a day (DME) lancets [iWeb TechnologiesTouch Delica Plus Lancet] 30 gauge [facility] See Rx Instructions .ROUTE .MEDSUPPLY Qty: 100 5RF Rx Instructions: use new lancet 3x a day (DME) blood-glucose meter [OneTouch Verio Flex meter] [facility] See Rx Instructions .ROUTE .MEDSUPPLY Qty: 1 0RF Rx Instructions: As directed atorvastatin 10 mg tablet 10 mg PO DAILY Qty: 90 3RF torsemide 100 mg tablet 100 mg PO BID Qty: 180 0RF Rx Instructions: 100 mg orally twice a day; isosorbide mononitrate 30 mg tablet extended release 24 hr 60 mg PO DAILY Qty: 90 0RF hydroxyzine HCl 25 mg tablet 25 mg PO TID PRN (Reason: itching) Qty: 90 1RF triamcinolone acetonide 0.025 % cream 1 applic topical TID PRN (Reason: rash) Qty: 454 0RF tirzepatide 7.5 mg/0.5 mL pen injector 7.5 mg subcut WK 30 Days Qty: 2 3RF Rx Instructions: Sunday (DME) [employer] Karla 3 Plus Sensor Device See Rx Instructions .ROUTE .MEDSUPPLY Qty: 2 11RF Rx Instructions: change sensor every 15 days nitroglycerin [Nitrostat] 0.4 mg tablet, sublingual 0.4 mg sublingual UD PRN (Reason: Chest Pain) aspirin [Neisha Low Dose Aspirin] 81 mg tablet,delayed release (DR/EC) 81 mg PO QAM albuterol sulfate 2.5 mg /3 mL (0.083 %) solution for nebulization 2.5 mg inhalation Q6H PRN (Reason: Shortness Of Breath Or Wheezing) Rx Instructions: Use every 6 hours as needed with nebulizer nystatin 100,000 unit/gram powder 1 applic topical BID PRN (Reason: Skin Irritation) albuterol sulfate 90 mcg/actuation HFA aerosol inhaler 1 inh inhalation QID PRN (Reason: Shortness Of Breath Or Wheezing) (DME) Oxygen Home Liters Per Minute See Rx Instructions .Route Qty: 5 0RF Rx Instructions: As directed lidocaine 5 % adhesive patch,medicated 1 patch topical DAILY PRN (Reason: Pain) trolamine salicylate [Myoflex] 10 % Cream 1 applic EXT BID PRN (Reason: left sided neck pain) Qty: 35.4 0RF Rx Instructions: Please give tube from hospital Discontinued insulin glargine [Lantus Solostar U-100 Insulin] 100 unit/mL (3 mL) insulin pen 70 unit subcut HS Discharge Orders: Discharge Order (Routine); Ordered 01/20/24 Ordered By: Abhilash Talamantes/Other Patient Handouts: Managing Type 2 Diabetes, Limiting Fluids Dc, Heart Failure: Breathe More Easily Admission Data Admit Date/Time: 01/17/24 12:33 Attending Provider: Ananth Soot Admit Provider: Negro Olson Primary Care Provider: Gosia Becker Other Providers: Negro Olson Other Interventions: Discharge Summary Assessment (RN) Last Done: 01/20/24 11:32 Hospital Stay Data Consultations 01/17/24 12:09 ED Decision to Admit Stat Diagnostic Imagining Performed Chest X-Ray 01/17/24 10:52 XR chest 1V portable HISTORY: 48 years-old Male Chest pain, nonspecific COMPARISON: 11/21/2023 TECHNIQUE: AP view of the chest FINDINGS: Single lead left subclavian pacer. Cardiomegaly. Pulmonary vascular congestion with interstitial coarsening. There is no pneumothorax. Mid to lower lung zone predominant consolidation with layering small pleural effusions, similar in appearance to the prior study. Bones appear grossly intact. IMPRESSION: 1. Cardiomegaly with pulmonary edema. 2. Small pleural effusions with bibasilar consolidation suspicious for pneumonia. ACT 112: Negative or not required by law. The above report was generated using voice recognition software. It may contain grammatical, syntax or spelling errors. Electronically signed by: Sony Irby M.D. 01/17/2024 11:17 AM Chest X-Ray 01/19/24 09:00 XR chest 1V portable HISTORY: 48 years-old Male Hypoxia, CHF acute hypoxia with congestive heart failure COMPARISON: 01/17/2024 TECHNIQUE: AP view of the chest FINDINGS: Cardiac silhouette is enlarged. Single lead left subclavian pacer/AICD. Pulmonary vascular congestion. Trace pleural effusions have decreased from prior. There is improved aeration of the lung bases. No pneumothorax. Bones appear grossly intact. IMPRESSION: 1. Cardiomegaly with resolving pulmonary edema. 2. Trace pleural effusions have decreased in size and there is improved aeration of the lung bases. ACT 112: Negative or not required by law. The above report was generated using voice recognition software. It may contain grammatical, syntax or spelling errors. Electronically signed by: Sony Irby M.D. 01/19/2024 1:10 PM Pending Results Patient Have Any Pending Studies at Discharge: No Discharge Instructions Given to Patient (Per Discharging Provider) Patient was admitted for acute on chronic congestive heart failure with acute on chronic respiratory failure. Is currently at baseline with oxygen requirements of 5 L/min via nasal cannula A portable tank was provided to the patient to be used outside of the home. He is aware that he must use this whenever he leaves the home and that he requires supplemental oxygen 24 hours a day every day. [facility] patient has been contacted and will be in touch with him this week to arrange for portable tanks when he leaves his apartment. Patient currently is at base weight at 144 kg. He is encouraged to continue with his diuretics and follow-up with cardiology within 7 to 10 days Patient is instructed to avoid processed foods including fast food, chips, pretzels, other junk food Patient should limit intake of soda and other carbonated beverages throughout the day and try to substitute water for these beverages. Patient should call his cardiology office with a weight increase of 3 pounds or more and should continue to weigh himself daily. Patient is encouraged to follow through with CPAP. His mask from the hospital is being sent home with him since he did well with that last night and felt comfortable with that mask and headgear. Supervising Physician Co-Signing Physician Notes I personally examined the patient and verified all caraballo points of history and exam, discussed case, and agree with decision making with Marci MONTIEL Ready for home. Discussed outpatient care. Emphasized to patient taking his medication, avoiding sodium, and wearing his oxygen/CPAP. Breathing unlabored no accessory muscle use good effort no conversational dyspnea. CHF exacerbation improvedsafe/stable for home. Otherwise as above. Total Time Total Time Spent Total Time Spent (In Minutes): 40 Coding Level of Care Code 42455 INP/OBS DISCH >30 MIN Diagnoses Acute on chronic HFrEF (heart failure with reduced ejection fraction) I50.23 Acute on chronic respiratory failure with hypoxemia J96.21 Type 2 diabetes mellitus with obesity E11.69; E66.9 Obstructive sleep apnea G47.33 Chronic obstructive pulmonary disease, unspecified COPD type J44.1 COPD type: COPD with acute exacerbation Hemoptysis R04.2 Morbid obesity with BMI of 50.0-59.9, adult E66.01; Z68.43 Time Spent (min) 40
== END 2024-01-20 13:58 | disposition home or self-care (01) | DRG 291 ==
LOC: ED 10:41 → 2E 12:33 → SUATTDRO 12:33 → 2E 14:47

== ENCOUNTER 2024-05-23 14:05 | Inpatient (IN) ==
[2024-05-23] MEDS: methylPREDNISolone 125 MG/2 ML VIAL IV STA (14:31)
[2024-05-23] MEDS: ASPIRIN CHEW 324 MG PO STA (14:31)
[2024-05-23] MEDS: diphenhydrAMINE 50 MG/ML VIAL IV STA (14:31)
[2024-05-23 14:40] LABS: iSTAT Creatinine 0.9 mg/dl (0.6-1.3); iSTAT Hemoglobin 16.7 g/dl (14.0-18.0); iSTAT Ionized Calcium 1.12 mmol/l (1.12-1.32); iSTAT Potassium 4.1 mmol/L (3.3-5.0)
--- NOTE | 2024-05-23 14:45 | XRay Report ---
XR chest 1V portable CLINICAL HISTORY: Chest pain, nonspecific COMPARISON STUDY: 01/16/2024 FINDINGS: Cardiac pacemaker is present. There is stable cardiomegaly without pulmonary vascular conge stion. There is patchy consolidation in the lower lungs with obscuration of the diaphragm. No pneumot horax. IMPRESSION: Bilateral lower lung pneumonia. ACT 112: Negative or not required by law. Electronically signed by: Yuri Dillon M.D. 05/23/2024 2:44 PM
[2024-05-23 14:55] LABS: iSTAT Arterial Blood Gas HCO3 24 meg/L (19-24); iSTAT Arterial Blood Gas pCO2 36 mmHg (35-46); iSTAT Arterial Blood Gas pH 7.42 (7.35-7.45); iSTAT Arterial Blood Gas pO2 51 mmHg (80-95); iSTAT Carbon Dioxide 25 mmol/L (24-31); iSTAT Hematocrit 45 % (42-52); iSTAT Hemoglobin 15.3 g/dl (14.0-18.0); iSTAT Sodium 137 mmol/L (135-144)
[2024-05-23] MEDS: OPTIRAY 320 125ml IV ONE (15:05)
[2024-05-23 15:10] LABS: BUN Creatinine Ratio 14.7 (10-20); Calcium 9.3 mg/dl (8.6-10.3); Creatinine Clr Calc Pharmacy 144.2 ml/min; Potassium 4.2 mmol/L (3.5-5.1)
[2024-05-23 15:16] LABS: Basophils # (auto) 0.04 K/uL (0.00-0.20); Basophils % (auto) 0.3 %; Eosinophils # (auto) 0.18 K/uL (0.00-0.50); Eosinophils % (auto) 1.5 %; Hematocrit (blood only) 46.8 % (42.0-52.0); Hemoglobin 15.6 g/dl (14.0-18.0); Immature Granulocytes # (auto) 0.04 K/uL (0.01-0.20); Immature Granulocytes % (auto) 0.3 %; Lymphocytes # (auto) 1.31 K/uL (1.20-3.40); Mean Corpuscular Hemoglobin 29.3 pg (25.0-34.0); Mean Corpuscular Hgb Conc 33.3 g/dL (32.0-36.0); Mean Corpuscular Volume 87.8 fL (80.0-100.0); Mean Platelet Volume 11.1 fL (9.4-12.4); Monocytes # (auto) 0.79 K/uL (0.11-0.59); Monocytes % (auto) 6.6 %; Neutrophils % (auto) 80.3 %; Platelet Count 150 K/uL (130-400); RDW Coefficient of Variation 15.1 % (11.5-14.5); RDW Standard Deviation 48.6 fL (36.4-46.3); Red Blood Count 5.33 M/uL (4.70-6.10); Troponin I High Sensitivity 17.1 pg/ml (0-20); White Blood Count 11.96 K/ul (4.8-10.8)
--- NOTE | 2024-05-23 15:27 | CT Scan Report ---
CT ANGIOGRAM OF THE CHEST CLINICAL HISTORY: Chest pain. Shortness of breath. COMPARISON STUDY: Chest CT March 30, 2023. Chest radiograph performed earlier today. TECHNIQUE: Following the IV administration of 119 cc of Optiray 320, CT angiogram of the chest was pe rformed from the upper abdomen to the thoracic inlet utilizing the pulmonary embolus protocol. Images are reviewed in the axial, sagittal, and coronal planes. 3-D MIPS images are created and assessed. I V contrast was administered without complication. A dose lowering technique was utilized adhering to the principles of ALARA. CT DOSE: 958.64 mGy.cm FINDINGS: No central or lobar pulmonary emboli are identified. Segmental and subsegmental pulmonary a rteries are suboptimally assessed. Moderate cardiomegaly is unchanged. A left subclavian pacer is in place. Dilatation of the ascending aorta measuring 4.4 cm is unchanged. There is no pericardial effus ion. Bilateral gynecomastia. Small right and trace left pleural effusions are present with there is n o pneumothorax. Extensive alveolar opacities within the lungs are present. Interlobular septal [place] fr[place] is also present. Lungs are suboptimally assessed due to motion artifact. Mildly enlarged mediast inal lymph nodes are probably reactive. These are similar to prior CT. IMPRESSION: 1. No pulmonary emboli identified although segmental and subsegmental pulmonary arteries suboptimally assessed. 2. Cardiomegaly with interstitial pulmonary edema. Small right and trace left pleural effusions. 3. Extensive alveolar opacities within the lungs which may represent multifocal pneumonia or alveolar pulmonary edema. 4. Mildly enlarged mediastinal lymph nodes, likely reactive. ACT 112: Negative or not required by law. Electronically signed by: Eyad Rosario M.D. 05/23/2024 3:25 PM
[2024-05-23 15:29] LABS: Partial Thromboplastin Ratio 1.1; Partial Thromboplastin Time 29 Seconds (21-31)
[2024-05-23 15:40] LABS: Adenovirus PCR Not Detected (NotDetected); Bordetella parapertussis PCR Not Detected (NotDetected); Bordetella pertussis PCR Not Detected (NotDetected); Chlamydia pneumoniae PCR Not Detected (NotDetected); Coronavirus 229E PCR Not Detected (NotDetected); Coronavirus CoV-2 (COVID19)PCR Not Detected (NotDetected); Coronavirus HKU1 PCR Not Detected (NotDetected); Coronavirus NL63 PCR Not Detected (NotDetected); Coronavirus OC43PCR Not Detected (NotDetected); Human Metapneumovirus PCR Not Detected (NotDetected); Influenza A PCR Not Detected (NotDetected); Influenza B PCR Not Detected (NotDetected); Mycoplasma pneumoniae PCR Not Detected (NotDetected); Parainfluenza Virus 1 PCR Not Detected (NotDetected); Parainfluenza Virus 2 PCR Not Detected (NotDetected); Parainfluenza Virus 3 PCR Not Detected (NotDetected); Parainfluenza Virus 4 PCR Not Detected (NotDetected); Respiratory Syncytial VirusPCR Not Detected (NotDetected); Rhinovirus/Enterovirus PCR Not Detected (NotDetected)
[2024-05-23] MEDS: ERTAPENEM 1000MG 1,000 MG/10 ML SYR IV STA (15:46)
[2024-05-23] MEDS: FUROSEMIDE 40 MG/4 ML VIAL IV ONE (15:46)
[2024-05-23] MEDS: FUROSEMIDE 40 MG/4 ML VIAL IV STA (16:11)
[2024-05-23] MEDS: NITROGLYCERIN 2% OINTMENT 30GM TUBE EXT SCH (16:11)
[2024-05-23] MEDS ORDERED: TROLAMINE SALICYLATE 10% CRM 255 APPLN/85 GM TUBE EXT PRN (16:19)
[2024-05-23] MEDS ORDERED: TRIAMCINOLONE ACET 0.025% CR 15 GM TUBE TOP PRN (16:19)
[2024-05-23] MEDS ORDERED: LIDOCAINE 5% 1 PATCH TD PRN (16:19)
[2024-05-23] MEDS ORDERED: hydrOXYzine HCl 25 MG TAB PO PRN (16:19)
--- NOTE | 2024-05-23 16:19 | History & Physical Report ---
Date of Service May 23, 2024 Assessment & Plan (1) Acute on chronic heart failure with reduced ejection fraction (HFrEF, <= 40%): (2) Acute respiratory failure with hypoxia: (3) Uncontrolled diabetes mellitus with hyperglycemia: (4) Obstructive sleep apnea: (5) Non-sustained ventricular tachycardia: Plan 48 year old with HFrEF presents to the ER with hypoxia, cyanosis and shortness of breath with 1 week of symptoms #Acute on chronic heart failure with reduced ejection fraction (LVEF 15-20%) / acute respiratory failure with hypoxia / NSVT Lasix 80 mg IV BID, nitro paste 2% 1 inch (discontinue when restarting his ISMN tomorrow) Continue his usual Entresto, metoprolol succinate and spironolactone (will reduce dose back to his last admission dose given history of non-compliance his BP tends to drop significantly on the day after admission) Strict I's and O's Daily weights Mg level added #T2DM HbA1C 7.6 in Feb, no need to repeat as within 3 months Insulin per last admission - Lantus 35 units BID Novolog: --Goal BSG Range: Low 110mg/dL, High 140 mg/dL --Correction Factor: 15mg/dL/unit --Carbohydrate ratio = 8 g/unit --BSGs ACHS if eating, q6h if npo #COPD No wheezing to suspect exacerbation, continue maintenance inhalers #MARIELENA CPAP HS VTE Prophylaxis - Lovenox 40mg SQ BID Disposition - admit to PCU Admission and Anticipated Discharge Date Admission Date: May 23, 2024 History of Present Illness Chief Complaint: Shortness of breath Primary Care Provider: Gosia Martinez MD Alok Huff is a 48 year old male with known chronic heart failure with reduced ejection fraction well known to the service with repeated exacerbation and problems with medication compliance who presents to the ER with shortness of breath. History is limited due to his current shortness of breath and need for BiPAP. He reports 1 week of shortness of breath with intermittent hemoptysis (he usually gets this with pulmonary edema). Reportedly cyanotic at home and hypoxic when picked up by EMS. He reports taking all his usual medications. No known increased salt in his diet. No fever or chills. Shortness of breath worse on lying flat. No known increased weight. Chest tightness similar to prior heart failure exacerbations. He also feels like his device may have shocked him. On ICD interrogation there were no shocks but he has had some episodes of non-sustained ventricular tachycardia < 30 seconds therefore he was not shocked out of this. Last echocardiogram in September 2023 with LVEF 15-20% with severely dilated left ventricle. Allergies Allergy/AdvReac Type Severity Reaction Status Date / Time albuterol Allergy Severe proair Verified 05/23/24 14:54 "trouble taking breaths" ceftriaxone Allergy Severe SHORTNESS Verified 05/23/24 14:54 OF BREATH lidocaine Allergy Severe SHORTNESS Verified 05/23/24 14:54 OF BREATH, diaphoretic, hives mushroom Allergy Severe Anaphylaxis Verified 05/23/24 14:54 procaine Allergy Severe SHORTNESS Verified 05/23/24 14:54 OF BREATH, diaphoretic, hives amoxicillin Allergy Intermediate HIVES/FACIAL Verified 05/23/24 14:54 SWELLING clavulanic acid Allergy Intermediate HIVES/FACIAL Verified 05/23/24 14:54 SWELLING lisinopril Allergy Intermediate HIVES Verified 05/23/24 14:54 shellfish derived Allergy Unknown Unknown Verified 05/23/24 14:54 acetaminophen AdvReac Mild NAUSEA Verified 05/23/24 14:54 Fish Containing Products AdvReac Unknown Unknown Verified 05/23/24 14:54 Home Medications Medication Instructions Recorded Confirmed Type nitroglycerin 0.4 mg sublingual 0.4 mg sublingual UD PRN Chest Pain 04/24/19 05/23/24 History tablet (Nitrostat) aspirin 81 mg tablet,delayed 81 mg PO QAM 06/16/21 05/23/24 History release (Neisha Low Dose Aspirin) albuterol sulfate 2.5 mg/3 mL 2.5 mg inhalation Q6H PRN 12/02/21 05/23/24 History (0.083 %) solution for nebulization Shortness Of Breath Or Wheezing budesonide 0.25 mg/2 mL suspension 0.25 mg inhalation DAILY PRN 09/15/22 05/23/24 History for nebulization Shortness Of Breath blood-glucose meter (XylemeTouch #1 ea 10/12/22 04/28/24 Rx Verio Flex Meter) lancets 30 gauge (OneTouch Delica #100 ea 10/12/22 04/28/24 Rx Plus Lancet) Symbicort 160 mcg-4.5 2 inh inhalation BID #3 Inhalers 11/14/22 05/23/24 Rx mcg/actuation HFA aerosol inhaler (budesonide-formoterol) blood sugar diagnostic (OneTouch #100 ea 01/17/23 04/28/24 Rx Verio test strips) pen needle, diabetic 31 gauge x #100 ea 02/16/23 04/28/24 Rx 5/16" (Comfort EZ [place]) Oxygen Home #5 L 04/01/23 04/28/24 Rx hydroxyzine HCl 25 mg tablet 25 mg PO TID PRN itching #90 tabs 05/31/23 05/23/24 Rx albuterol sulfate 90 mcg/actuation 1 inh inhalation QID PRN Shortness 10/12/23 05/23/24 History aerosol inhaler Of Breath Or Wheezing lidocaine 5 % topical patch 1 patch topical DAILY PRN Pain 11/03/23 05/23/24 History trolamine salicylate 10 % topical 1 applic EXT BID PRN left sided 11/06/23 05/23/24 Rx cream (Myoflex) neck pain #35.4 grams blood-glucose sensor (FreeStyle #2 ea 12/13/23 04/28/24 Rx Karla 3 Plus Sensor device) blood-glucose,roller embosser,cont #1 ea 01/14/24 04/28/24 Rx (FreeStyle Karla 3 [place]) blood-glucose,roller embosser,cont #1 ea 01/14/24 04/28/24 Rx (FreeStyle Karla 3 [place]rick) atorvastatin 10 mg tablet 10 mg PO DAILY #90 tabs 02/04/24 05/23/24 Rx Farxiga 10 mg tablet 10 mg PO DAILY #90 tabs 04/28/24 05/23/24 Rx (dapagliflozin propanediol) insulin glargine 100 unit/mL (3 50 unit subcut BID 04/28/24 05/23/24 History mL) subcutaneous pen isosorbide mononitrate 60 mg 60 mg PO DAILY #90 tabs 04/28/24 05/23/24 Rx tablet,extended release 24 hr metoprolol succinate 100 mg 100 mg PO BID #180 tabs 04/28/24 05/23/24 Rx tablet,extended release 24 hr sacubitril 97 mg-valsartan 103 mg 1 tab PO BID #180 tabs 04/28/24 05/23/24 Rx tablet (Entresto) spironolactone 100 mg tablet 100 mg PO BID #180 tabs 04/28/24 05/23/24 Rx torsemide 100 mg tablet 100 mg PO BID #180 tabs 04/28/24 05/23/24 Rx triamcinolone acetonide 0.025 % 1 applic topical TID PRN rash #454 04/28/24 05/23/24 Rx topical cream grams nystatin 100,000 unit/gram topical 1 applic topical BID PRN Skin 05/09/24 05/23/24 Rx powder Irritation #60 grams tirzepatide 7.5 mg/0.5 mL 7.5 mg (0.5 mL) subcut Q7D 30 days 05/09/24 05/23/24 Rx subcutaneous pen injector #2 mL Past Med/Surg History Problem List (Updated 05/24/24 @ 00:11 by Migue Laguna MD) Non-sustained ventricular tachycardia Pneumonia (Acute) Acute on chronic heart failure with reduced ejection fraction (HFrEF, <= 40%) Type 2 diabetes mellitus with microalbuminuria Periapical abscess Pulmonary edema (Acute) Hypomagnesemia (Acute) Type 2 diabetes mellitus with peripheral neuropathy Type 2 diabetes mellitus with obesity Obstructive sleep apnea Diabetic peripheral neuropathy Non-proliferative diabetic retinopathy, both eyes Uncontrolled diabetes mellitus with hyperglycemia COPD (chronic obstructive pulmonary disease) (Chronic) 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 Difficult to manage. Integrated into heart failure clinic. Frequent admissions for heart failure exacerbations. Echo (05/31) EF=25-30% with mod to severe global hypokinesis, basal kelsi-septal akinetic wall, LVH, RVSP elevated at 30-40mmHg, and mod dilated ascending aorta. Managed medically with ASA + BB + ARB/Neprilysin inhibitor (Entresto) + high dose furosemide (160mg BID) + metolazone (3x weekly). Considering ICD given EF. NICM (nonischemic cardiomyopathy) (Acute) Pt admitted for elective ICD. Underwent procedure without any complications monitored over night and discharged home. Chronic respiratory failure AICD (automatic cardioverter/defibrillator) present Normocytic anemia Hypertension (Chronic) Poor intravenous access Morbid obesity with BMI of 50.0-59.9, adult Chronic anticoagulation Diabetes mellitus type II, uncontrolled (Chronic) Urinary bladder incontinence Hx of local infection of skin and subcutaneous tissue Ambulatory dysfunction (Chronic) Recurrent infection of skin Pulmonary nodule V tach (Acute) HFrEF (heart failure with reduced ejection fraction) Hemoptysis (Acute) Vitamin D deficiency Medical History Hypomagnesemia Medical non-compliance Intellectual disability Chronic dental pain Small bowel obstruction Housing instability, currently housed, at risk for homelessness Hearing loss of both ears Nonproliferative retinopathy due to secondary diabetes Dilatation of thoracic aorta Iliac aneurysm Vitamin D insufficiency Previously deficient, taking Vit D supplementation Umbilical hernia Lung nodule Fatty liver Surgical History H/O oral surgery History of carpal tunnel surgery S/P tonsillectomy History of cholecystectomy Family History Father , age 57 of an NH. Heart disease Myocardial infarction Mother , age 67 of a ruptured neck vessel Sudden Other Depression Lung disease No pertinent family history Denies family history of Ovarian cancer Prostate cancer Breast cancer Colorectal cancer Social History Smoking Status: Former smoker Tobacco Type: Cigarettes Age Started Using Tobacco: 14; Age Quit Using Tobacco: 18; packs per day: 1; Cigarettes Per Day: 2 PPD; Second Hand Exposure: No; Do You Dip or Chew Tobacco: No; Hx Alcohol Use: No Hx Substance Use: No Preferred Language: Kazakh Communication Ability: Effective Visual Impairment: No Limitations Hearing Ability: Normal Cold Reduction Roller Required: No Beliefs That Will Affect Care: None marital status: Current Living Situation: Family Current Living Situation Comment: Lives at home with current occupational status: unemployed How many Children do You have: 0 Feels Safe at Home: Yes Safety Concerns: Feels Safe At This Time Childhood Exposure to Second-Hand Smoke: Yes Dental Care, Regularly: Yes Physical Activity Frequency: Does not Exercise Seatbelt Use: never Sunscreen Use: No Assistive Devices: Cane, Scooter/Electric Scooter and Walker Assistive Devices Comment: Personal walker at bedside Review of Systems Review of Systems: All systems reviewed & are unremarkable except as noted in HPI & below Physical Exam Constitutional: well developed and + acute distress; + not well nourished ENMT: external ear and nose normal, oropharynx normal Respiratory: + labored breathing, + uses accessory mu scles and + tachypneic; + not able to speak in complete sentence Auscultation: + crackles (bibasal); breath sounds present, no diminished lung sounds and no wheezes Cardiovascular: Rate/Rhythm: regular rhythm and + tachycardic Heart Sounds: no murmur Extremities: normal capillary refill and + pedal edema; no calf tenderness Gastrointestinal (Abdomen): normal bowel sounds, soft, nontender, no hepatosplenomegaly Skin: Multiple excoriation gambino on bilateral legs and arms without surrounding cellulitis Neurologic: moves all extremities and awake; not confused Psychiatric: A+Ox3, euthymic affect Results & Data Results & Data Vital Signs (Past 12 Hours) Vital Signs Temp Pulse Pulse Resp BP BP Pulse Ox 05/23/24 15:57 119 H 30 H 97 05/23/24 15:48 107 H 30 H 95 05/23/24 15:46 163/124 H 05/23/24 15:46 163/124 H 05/23/24 15:46 163/124 H 05/23/24 15:45 203/151 H 05/23/24 15:39 110 H 22 96 05/23/24 15:24 113 H 31 H 97 05/23/24 15:15 177/122 H 05/23/24 15:11 175/130 H 05/23/24 15:11 113 H 24 175/130 H 95 05/23/24 14:55 05/23/24 14:48 122 H 30 H 97 05/23/24 14:42 113 H 31 H 98 05/23/24 14:35 167/114 H 05/23/24 14:35 167/114 H 05/23/24 14:35 111 H 22 167/114 H 95 05/23/24 14:30 115 H 22 96 05/23/24 14:26 95 05/23/24 14:26 120 H 05/23/24 14:20 183/134 H 05/23/24 14:17 36.8 C 120 H 28 H 183/134 H 97 05/23/24 14:15 122 H 35 H 100 O2 Del Method FiO2 05/23/24 15:57 05/23/24 15:48 05/23/24 15:46 05/23/24 15:46 05/23/24 15:46 05/23/24 15:45 05/23/24 15:39 05/23/24 15:24 05/23/24 15:15 05/23/24 15:11 05/23/24 15:11 BiPAP 50 05/23/24 14:55 60 05/23/24 14:48 05/23/24 14:42 05/23/24 14:35 05/23/24 14:35 05/23/24 14:35 BiPAP 50 05/23/24 14:30 05/23/24 14:26 BiPAP 50 05/23/24 14:26 05/23/24 14:20 05/23/24 14:17 BiPAP 50 05/23/24 14:15 50 Laboratory Results Abnormal lab results 05/23/24 05/23/24 05/23/24 Range/Units 14:21 14:28 14:38 WBC 11.96 H (4.8-10.8) K/ul RDW Std Deviation 48.6 H (36.4-46.3) fL RDW Coeff of Zoltan 15.1 H (11.5-14.5) % Neut # (Auto) 9.60 H (1.40-6.50) K/uL [place] # (Auto) 0.79 H (0.11-0.59) K/uL POC pO2 51 L (80-95) mmHg POC ABG O2 Sat 86.0 L (90-95) % POC Total CO2 22 L (24-31) mmol/L Glucose 256 H (70-99(Fasting)) mg/dl POC Glucose (other) 262 H (70-99) mg/dl B-Natriuretic Peptide 540 H (0-100) pg/ml Diagnostic Findings XR chest 1V portable CLINICAL HISTORY: Chest pain, nonspecific COMPARISON STUDY: 01/16/2024 FINDINGS: Cardiac pacemaker is present. There is stable cardiomegaly without pulmonary vascular congestion. There is patchy consolidation in the lower lungs with obscuration of the diaphragm. No pneumothorax. IMPRESSION: Bilateral lower lung pneumonia. CT ANGIOGRAM OF THE CHEST CLINICAL HISTORY: Chest pain. Shortness of breath. COMPARISON STUDY: Chest CT March 30, 2023. Chest radiograph performed earlier today. TECHNIQUE: Following the IV administration of 119 cc of Optiray 320, CT angiogram of the chest was performed from the upper abdomen to the thoracic inlet utilizing the pulmonary embolus protocol. Images are reviewed in the axial, sagittal, and coronal planes. 3-D MIPS images are created and assessed. IV contrast was administered without complication. A dose lowering technique was utilized adhering to the principles of ALARA. CT DOSE: 958.64 mGy.cm FINDINGS: No central or lobar pulmonary emboli are identified. Segmental and subsegmental pulmonary arteries are suboptimally assessed. Moderate cardiomegaly is unchanged. A left subclavian pacer is in place. Dilatation of the ascending aorta measuring 4.4 cm is unchanged. There is no pericardial effusion. Bilateral gynecomastia. Small right and trace left pleural effusions are present with there is no pneumothorax. Extensive alveolar opacities within the lungs are present. Interlobular septal thickening is also present. Lungs are suboptimally assessed due to motion artifact. Mildly enlarged mediastinal lymph nodes are probably reactive. These are similar to prior CT. IMPRESSION: 1. No pulmonary emboli identified although segmental and subsegmental pulmonary arteries suboptimally assessed. 2. Cardiomegaly with interstitial pulmonary edema. Small right and trace left pleural effusions. 3. Extensive alveolar opacities within the lungs which may represent multifocal pneumonia or alveolar pulmonary edema. 4. Mildly enlarged mediastinal lymph nodes, likely reactive. Medications Administered ER medications given: Aspirin 324 mg p.o. Diphenhydramine 25 mg IV Solu-Medrol 125 mg IV Furosemide 40 mg IV Ertapenem 1000 mg IV ECG Rate (beats per minute): 120 Rhythm: sinus tachycardia Findings: + left axis deviation; no acute ischemic change Comparison ECG Date: from (January 19, 2024) Change: the following changes noted (ST no longer depressed in anterior leads, T wave amplitude increased in inferior leads) Code Status & VTE Plan Code Status Full VTE Prophylaxis Plan VTE Prophylaxis will be ordered: Yes PG Care Time/CCT Total # of Minutes Spent Total Time Spent with Patient: Total time spent is greater than 50% in coordination of care (as documented) at patient's floor/unit and/or counseling patient: Coding Level of Care Code 95275 INT INP/OBS CARE 3/75MIN Diagnoses Acute on chronic heart failure with reduced ejection fraction (HFrEF, <= 40%) I50.23 Acute respiratory failure with hypoxia J96.01 Uncontrolled diabetes mellitus with hyperglycemia E11.65 Obstructive sleep apnea G47.33 Non-sustained ventricular tachycardia I47.29
--- NOTE | 2024-05-23 16:19 | Electrocardiogram Report ---
Test Reason : Blood Pressure : */* mmHG Vent. Rate : 120 BPM Atrial Rate : 120 BPM P-R Int : 156 ms QRS Dur : 110 ms QT Int : 342 ms P-R-T Axes : 21 -58 95 degrees QTcB Int : 483 ms Sinus tachycardia Possible Left atrial enlargement Left axis deviation Minimal voltage criteria for LVH, may be normal variant Septal infarct , age undetermined T wave abnormality, consider lateral ischemia Abnormal ECG When compared with ECG of 19-Jan-2024 00:15, Vent. rate has increased by 53 bpm Septal infarct is now Present ST no longer depressed in Anterior leads T wave amplitude has increased in Inferior leads Confirmed by Rodney Cary ([id number]) on 05/23/2024 4:18:37 PM Referred By: Confirmed By: Rodney Cary
[2024-05-23 16:30] LABS: Magnesium 1.6 mg/dl (1.7-2.4)
--- NOTE | 2024-05-23 17:58 | Emergency Department Note ---
History of Present Illness General Chief Complaint: Cardiac Assessment Time Seen by Provider: 05/23/24 14:07 Source: EMS History of Present Illness Provider Complaint: shortness of breath Onset (ago): day(s) (1) Consistency/Duration: + progressively worsening Relieved By: + oxygen and + upright position Exacerbated By: + lying flat and + coughing Known history of: COPD and congestive heart failure Associated symptoms: + sputum production, + hemoptysis and + chest congestion; no fever or no abdominal pain Treatment prior to arrival: NIPPV HPI Narrative: Patient reports his defibrillator went off twice today. Home Medications Medication Instructions Recorded Confirmed Type nitroglycerin 0.4 mg sublingual 0.4 mg sublingual UD PRN Chest Pain 04/24/19 05/23/24 History tablet (Nitrostat) aspirin 81 mg tablet,delayed 81 mg PO QAM 06/16/21 05/23/24 History release (Neisha Low Dose Aspirin) albuterol sulfate 2.5 mg/3 mL 2.5 mg inhalation Q6H PRN 12/02/21 05/23/24 History (0.083 %) solution for nebulization Shortness Of Breath Or Wheezing budesonide 0.25 mg/2 mL suspension 0.25 mg inhalation DAILY PRN 09/15/22 05/23/24 History for nebulization Shortness Of Breath blood-glucose meter (OneTouch #1 ea 10/12/22 04/28/24 Rx Verio Flex Meter) lancets 30 gauge (OneTouch Delica #100 ea 10/12/22 04/28/24 Rx Plus Lancet) Symbicort 160 mcg-4.5 2 inh inhalation BID #3 Inhalers 11/14/22 05/23/24 Rx mcg/actuation HFA aerosol inhaler (budesonide-formoterol) blood sugar diagnostic (OneTouch #100 ea 01/17/23 04/28/24 Rx Verio test strips) pen needle, diabetic 31 gauge x #100 ea 02/16/23 04/28/24 Rx 5/16" (Comfort EZ Pen [place]) Oxygen Home #5 L 04/01/23 04/28/24 Rx hydroxyzine HCl 25 mg tablet 25 mg PO TID PRN itching #90 tabs 05/31/23 05/23/24 Rx albuterol sulfate 90 mcg/actuation 1 inh inhalation QID PRN Shortness 10/12/23 05/23/24 History aerosol inhaler Of Breath Or Wheezing lidocaine 5 % topical patch 1 patch topical DAILY PRN Pain 11/03/23 05/23/24 History trolamine salicylate 10 % topical 1 applic EXT BID PRN left sided 11/06/23 05/23/24 Rx cream (Myoflex) neck pain #35.4 grams blood-glucose sensor (FreeStyle #2 ea 12/13/23 04/28/24 Rx Karla 3 Plus Sensor device) blood-glucose,head of art,cont #1 ea 01/14/24 04/28/24 Rx (FreeStyle Karla 3 [place]) blood-glucose,head of art,cont #1 ea 01/14/24 04/28/24 Rx (FreeStyle Karla 3 [place]) atorvastatin 10 mg tablet 10 mg PO DAILY #90 tabs 02/04/24 05/23/24 Rx Farxiga 10 mg tablet 10 mg PO DAILY #90 tabs 04/28/24 05/23/24 Rx (dapagliflozin propanediol) insulin glargine 100 unit/mL (3 50 unit subcut BID 04/28/24 05/23/24 History mL) subcutaneous pen isosorbide mononitrate 60 mg 60 mg PO DAILY #90 tabs 04/28/24 05/23/24 Rx tablet,extended release 24 hr metoprolol succinate 100 mg 100 mg PO BID #180 tabs 04/28/24 05/23/24 Rx tablet,extended release 24 hr sacubitril 97 mg-valsartan 103 mg 1 tab PO BID #180 tabs 04/28/24 05/23/24 Rx tablet (Entresto) spironolactone 100 mg tablet 100 mg PO BID #180 tabs 04/28/24 05/23/24 Rx torsemide 100 mg tablet 100 mg PO BID #180 tabs 04/28/24 05/23/24 Rx triamcinolone acetonide 0.025 % 1 applic topical TID PRN rash #454 04/28/24 05/23/24 Rx topical cream grams nystatin 100,000 unit/gram topical 1 applic topical BID PRN Skin 05/09/24 05/23/24 Rx powder Irritation #60 grams tirzepatide 7.5 mg/0.5 mL 7.5 mg (0.5 mL) subcut Q7D 30 days 05/09/24 05/23/24 Rx subcutaneous pen injector #2 mL Allergies Allergy/AdvReac Type Severity Reaction Status Date / Time albuterol Allergy Severe proair Verified 05/23/24 14:54 "trouble taking breaths" ceftriaxone Allergy Severe SHORTNESS Verified 05/23/24 14:54 OF BREATH lidocaine Allergy Severe SHORTNESS Verified 05/23/24 14:54 OF BREATH, diaphoretic, hives mushroom Allergy Severe Anaphylaxis Verified 05/23/24 14:54 procaine Allergy Severe SHORTNESS Verified 05/23/24 14:54 OF BREATH, diaphoretic, hives amoxicillin Allergy Intermediate HIVES/FACIAL Verified 05/23/24 14:54 SWELLING clavulanic acid Allergy Intermediate HIVES/FACIAL Verified 05/23/24 14:54 SWELLING lisinopril Allergy Intermediate HIVES Verified 05/23/24 14:54 shellfish derived Allergy Unknown Unknown Verified 05/23/24 14:54 acetaminophen AdvReac Mild NAUSEA Verified 05/23/24 14:54 Fish Containing Products AdvReac Unknown Unknown Verified 05/23/24 14:54 Past Med/Surg History Problem List (Updated 05/23/24 @ 17:57 by Onofre Almaraz MD) Pneumonia (Acute) Acute on chronic heart failure with reduced ejection fraction (HFrEF, <= 40%) Type 2 diabetes mellitus with microalbuminuria Periapical abscess Pulmonary edema (Acute) Hypomagnesemia (Acute) Type 2 diabetes mellitus with peripheral neuropathy Type 2 diabetes mellitus with obesity Obstructive sleep apnea Diabetic peripheral neuropathy Non-proliferative diabetic retinopathy, both eyes Uncontrolled diabetes mellitus with hyperglycemia COPD (chronic obstructive pulmonary disease) (Chronic) 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 Difficult to manage. Integrated into heart failure clinic. Frequent admissions for heart failure exacerbations. Echo (05/31) EF=25-30% with mod to severe global hypokinesis, basal kelsi-septal akinetic wall, LVH, RVSP elevated at 30-40mmHg, and mod dilated ascending aorta. Managed medically with ASA + BB + ARB/Neprilysin inhibitor (Entresto) + high dose furosemide (160mg BID) + metolazone (3x weekly). Considering ICD given EF. NICM (nonischemic cardiomyopathy) (Acute) Pt admitted for elective ICD. Underwent procedure without any complications monitored over night and discharged home. Chronic respiratory failure AICD (automatic cardioverter/defibrillator) present Normocytic anemia Hypertension (Chronic) Poor intravenous access Morbid obesity with BMI of 50.0-59.9, adult Chronic anticoagulation Diabetes mellitus type II, uncontrolled (Chronic) Urinary bladder incontinence Hx of local infection of skin and subcutaneous tissue Ambulatory dysfunction (Chronic) Recurrent infection of skin Pulmonary nodule V tach (Acute) HFrEF (heart failure with reduced ejection fraction) Hemoptysis (Acute) Vitamin D deficiency Medical History Hypomagnesemia Medical non-compliance Intellectual disability Chronic dental pain Small bowel obstruction Housing instability, currently housed, at risk for homelessness Hearing loss of both ears Nonproliferative retinopathy due to secondary diabetes Dilatation of thoracic aorta Iliac aneurysm Vitamin D insufficiency Previously deficient, taking Vit D supplementation Umbilical hernia Lung nodule Fatty liver Surgical History H/O oral surgery History of carpal tunnel surgery S/P tonsillectomy History of cholecystectomy Family History Father , age 57 of an [place]. Heart disease Myocardial infarction Mother , age 67 of a ruptured neck vessel Sudden Other Depression Lung disease No pertinent family history Denies family history of Ovarian cancer Prostate cancer Breast cancer Colorectal cancer Social History Smoking Status: Unknown if ever smoked Tobacco Type: Cigarettes Age Started Using Tobacco: 14; Age Quit Using Tobacco: 18; packs per day: 1; Cigarettes Per Day: 40; Second Hand Exposure: No; Do You Dip or Chew Tobacco: No; Hx Alcohol Use: No Hx Substance Use: No Preferred Language: Ukrainian Communication Ability: Effective Visual Impairment: No Limitations Hearing Ability: Normal Community Nurse Required: No Beliefs That Will Affect Care: None marital status: Current Living Situation Comment: Lives at home with current occupational status: unemployed How many Children do You have: 0 Feels Safe at Home: Yes Childhood Exposure to Second-Hand Smoke: Yes Dental Care, Regularly: Yes Physical Activity Frequency: Does not Exercise Seatbelt Use: never Sunscreen Use: No Assistive Devices: CPAP, Oxygen - Continuous and Scooter/Electric Scooter Physical Exam 2 Vital Signs: Vital Signs - 24 hr 05/23/24 14:15 05/23/24 14:17 05/23/24 14:20 Temperature 36.8 C Temperature Source Temporal Artery Sc an Pulse Rate 122 H 120 H Pulse Rate [Apical ] Pulse Rate from Sp O2 Sensor Respiratory Rate 35 H 28 H Respiratory Effort / Characteristics Spontaneous Labored Respiratory Depth Respiratory Patter n Tachypnea Blood Pressure 183/134 H 183/134 H Blood Pressure [Ri ght Arm] Blood Pressure Ly n 150 147 Blood Pressure Ly n [Right Arm] Pulse Oximetry 100 97 Oxygen Delivery Me thod BiPAP Fraction of Inspir ed Oxygen 50 50 SaO2/FiO2 Ratio 194 Sepsis Recent Feve r Within 48 Hours No Sepsis New/Unexpla ined Change in Men kyree Status No Sepsis Action Take n by Nursing Physician Notified 05/23/24 14:26 05/23/24 14:26 05/23/24 14:30 Temperature Temperature Source Pulse Rate 120 H 115 H Pulse Rate [Apical ] Pulse Rate from Sp O2 Sensor 115 H Respiratory Rate 22 Respiratory Effort / Characteristics Respiratory Depth Respiratory Patter n Blood Pressure Blood Pressure [Ri ght Arm] Blood Pressure Ly n Blood Pressure Yl n [Right Arm] Pulse Oximetry 95 96 Oxygen Delivery Me thod BiPAP Fraction of Inspir ed Oxygen 50 SaO2/FiO2 Ratio 190 Sepsis Recent Feve r Within 48 Hours Sepsis New/Unexpla ined Change in Men kyree Status Sepsis Action Take n by Nursing 05/23/24 14:35 05/23/24 14:35 05/23/24 14:35 Temperature Temperature Source Pulse Rate Pulse Rate [Apical ] 111 H Pulse Rate from Sp O2 Sensor Respiratory Rate 22 Respiratory Effort / Characteristics Spontaneous Labore d Respiratory Depth Respiratory Patter n Blood Pressure 167/114 H 167/114 H Blood Pressure [Ri ght Arm] 167/114 H Blood Pressure Ly n 123 123 Blood Pressure Ly n [Right Arm] 131 Pulse Oximetry 95 Oxygen Delivery Me thod BiPAP Fraction of Inspir ed Oxygen 50 SaO2/FiO2 Ratio 190 Sepsis Recent Feve r Within 48 Hours Sepsis New/Unexpla ined Change in Men kyree Status Sepsis Action Take n by Nursing 05/23/24 14:42 05/23/24 14:48 05/23/24 14:55 Temperature Temperature Source Pulse Rate 113 H 122 H Pulse Rate [Apical ] Pulse Rate from Sp O2 Sensor 113 H 122 H Respiratory Rate 31 H 30 H Respiratory Effort / Characteristics Respiratory Depth Respiratory Patter n Blood Pressure Blood Pressure [Ri ght Arm] Blood Pressure Ly n Blood Pressure Ly n [Right Arm] Pulse Oximetry 98 97 Oxygen Delivery Me thod Fraction of Inspir ed Oxygen 60 SaO2/FiO2 Ratio Sepsis Recent Feve r Within 48 Hours Sepsis New/Unexpla ined Change in Men kyree Status Sepsis Action Take n by Nursing 05/23/24 15:11 05/23/24 15:11 05/23/24 15:15 Temperature Temperature Source Pulse Rate Pulse Rate [Apical ] 113 H Pulse Rate from Sp O2 Sensor Respiratory Rate 24 Respiratory Effort / Characteristics Spontaneous Labore d Respiratory Depth Respiratory Patter n Blood Pressure 175/130 H 177/122 H Blood Pressure [Ri ght Arm] 175/130 H Blood Pressure Ly n 142 142 Blood Pressure Ly n [Right Arm] 145 Pulse Oximetry 95 Oxygen Delivery Me thod BiPAP Fraction of Inspir ed Oxygen 50 SaO2/FiO2 Ratio 190 Sepsis Recent Feve r Within 48 Hours Sepsis New/Unexpla ined Change in Men kyree Status Sepsis Action Take n by Nursing 05/23/24 15:24 05/23/24 15:39 05/23/24 15:45 Temperature Temperature Source Pulse Rate 113 H 110 H Pulse Rate [Apical ] Pulse Rate from Sp O2 Sensor 114 H 109 H Respiratory Rate 31 H 22 Respiratory Effort / Characteristics Respiratory Depth Respiratory Patter n Blood Pressure 203/151 H Blood Pressure [Ri ght Arm] Blood Pressure Ly n 171 Blood Pressure Ly n [Right Arm] Pulse Oximetry 97 96 Oxygen Delivery Me thod Fraction of Inspir ed Oxygen SaO2/FiO2 Ratio Sepsis Recent Feve r Within 48 Hours Sepsis New/Unexpla ined Change in Men kyree Status Sepsis Action Take n by Nursing 05/23/24 15:46 05/23/24 15:46 05/23/24 15:46 Temperature Temperature Source Pulse Rate Pulse Rate [Apical ] Pulse Rate from Sp O2 Sensor Respiratory Rate Respiratory Effort / Characteristics Respiratory Depth Respiratory Patter n Blood Pressure 163/124 H 163/124 H 163/124 H Blood Pressure [Ri ght Arm] Blood Pressure Ly n 143 143 143 Blood Pressure Ly n [Right Arm] Pulse Oximetry Oxygen Delivery Me thod Fraction of Inspir ed Oxygen SaO2/FiO2 Ratio Sepsis Recent Feve r Within 48 Hours Sepsis New/Unexpla ined Change in Men kyree Status Sepsis Action Take n by Nursing 05/23/24 15:48 05/23/24 15:57 05/23/24 16:02 Temperature Temperature Source Pulse Rate 107 H 119 H Pulse Rate [Apical ] Pulse Rate from Sp O2 Sensor 106 H 119 H Respiratory Rate 30 H 30 H Respiratory Effort / Characteristics Respiratory Depth Respiratory Patter n Blood Pressure 164/122 H Blood Pressure [Ri ght Arm] Blood Pressure Ly n 140 Blood Pressure Ly n [Right Arm] Pulse Oximetry 95 97 Oxygen Delivery Me thod Fraction of Inspir ed Oxygen SaO2/FiO2 Ratio Sepsis Recent Feve r Within 48 Hours Sepsis New/Unexpla ined Change in Men kyree Status Sepsis Action Take n by Nursing 05/23/24 16:02 05/23/24 16:15 05/23/24 16:15 Temperature Temperature Source Pulse Rate Pulse Rate [Apical ] Pulse Rate from Sp O2 Sensor Respiratory Rate Respiratory Effort / Characteristics Respiratory Depth Respiratory Patter n Blood Pressure 164/122 H 173/130 H 173/130 H Blood Pressure [Ri ght Arm] Blood Pressure Ly n 140 145 145 Blood Pressure Ly n [Right Arm] Pulse Oximetry Oxygen Delivery Me thod Fraction of Inspir ed Oxygen SaO2/FiO2 Ratio Sepsis Recent Feve r Within 48 Hours Sepsis New/Unexpla ined Change in Men kyree Status Sepsis Action Take n by Nursing 05/23/24 16:15 05/23/24 16:24 05/23/24 16:45 Temperature Temperature Source Pulse Rate 111 H 110 H Pulse Rate [Apical ] Pulse Rate from Sp O2 Sensor 111 H Respiratory Rate 26 H 29 H Respiratory Effort / Characteristics Spontaneous Respiratory Depth Normal Respiratory Patter n Blood Pressure 173/130 H Blood Pressure [Ri ght Arm] Blood Pressure Ly n 145 Blood Pressure Ly n [Right Arm] Pulse Oximetry 95 96 Oxygen Delivery Me thod Fraction of Inspir ed Oxygen 60 SaO2/FiO2 Ratio Sepsis Recent Feve r Within 48 Hours Sepsis New/Unexpla ined Change in Men kyree Status Sepsis Action Take n by Nursing Physical Exam: Physical Exam GENERAL: Patient in respiratory distress on BiPAP. HENT: Exam performed. - Head: Normocephalic and atraumatic. EYES: Conjunctivae and EOM are normal. Right eye exhibits no discharge. Left eye exhibits no discharge. No scleral icterus. NECK: Normal range of motion. Neck supple. No JVD present. CV: Tachycardic rate, regular rhythm, normal heart sounds and intact distal pulses. Palpable radial pulses bue. PULM/CHEST: Tachypneic. In respiratory distress. Rales bilaterally. ABD: The abdomen is soft and obese. There is no tenderness. NEURO: Motor and sensation grossly intact. Course Course 1407: The patient was evaluated in room A1. A complete history and physical exam was performed Cardiac monitoring: An order was placed for continuous cardiac monitoring. The monitor shows a rate of 120 with sinus tachycardia rhythm interpreted by me 1415: Chest x-ray reviewed by me shows cardiomegaly with pulmonary edema and bilateral infiltrates. Patient be taken for CTA of the chest given that he was having hemoptysis also. 1530: Vital signs stable on BiPAP. Labs show white blood cell count of 11.96 coagulation studies unremarkable. ABG is unremarkable. BNP 540 high- sensitivity troponin 17.1. Patient treated with Lasix as well as IV antibiotics. 1600: Nursing informed me that they thought the patient had a run of V. tach on the engine monitor. I reviewed the telemetry strip I did not visualize any V. tach. 1629: Spoke with Yamil from [facility]. He states that the patient has received no shocks. He states that the patient has intermittent breaks in V. tach however he always self converts into a sinus rhythm and no shocks were delivered as his defibrillator said to only shock after 30 beats of V. tach. [facility]. Administered Medications Nitroglycerin (Nitroglycerin 2% Ointment 30gm Tube) 1 inch EXT Q6H SUKHWINDER Stop: 06/22/24 16:14 Last Admin: 05/23/24 16:11 Dose: 1 inch Documented By: STEVE Discontinued Medications Aspirin (Aspirin Chew 324 Mg) 324 mg PO NOW STA Stop: 05/23/24 14:10 Last Admin: 05/23/24 14:31 Dose: Not Given Documented By: DS Diphenhydramine HCl (Diphenhydramine 50 Mg/Ml Vial) 25 mg IV NOW STA Stop: 05/23/24 14:13 Last Admin: 05/23/24 14:31 Dose: 25 mg Documented By: SUN Furosemide (Furosemide 40 Mg/4 Ml Vial) 40 mg IV ONE ONE Stop: 05/23/24 15:31 Last Admin: 05/23/24 15:46 Dose: 40 mg Documented By: STEVE Furosemide (Furosemide 40 Mg/4 Ml Vial) 40 mg IV ONE STA Stop: 05/23/24 16:03 Last Admin: 05/23/24 16:11 Dose: 40 mg Documented By: STEVE Ertapenem (Invanz 1000mg) 1,000 mg in 10 mls @ 2 mls/min IV NOW STA Stop: 05/23/24 15:40 Last Admin: 05/23/24 15:46 Dose: 2 mls/min Documented By: STEVE Ioversol (Optiray 320 125ml) 119 ml IV ONCE ONE Stop: 05/23/24 15:06 Last Admin: 05/23/24 15:05 Dose: 119 ml Documented By: LONGK Methylprednisolone (Methylprednisolone 125 Mg/2 Ml Vial) 125 mg IV NOW STA Stop: 05/23/24 14:13 Last Admin: 05/23/24 14:31 Dose: 125 mg Documented By: SUN Medical Decision Making Laboratory Data Attestation: I reviewed the patient's lab results. 05/23/24 14:21 05/23/24 14:21 Lab Results 05/23/24 05/23/24 05/23/24 Range/Units 14:21 14:28 14:33 WBC 11.96 H (4.8-10.8) K/ul RBC 5.33 (4.70-6.10) M/uL Hgb 15.6 (14.0-18.0) g/dl POC Hgb 16.7 (14.0-18.0) g/dl Hct 46.8 (42.0-52.0) % POC Hct 49 (42-52) % MCV 87.8 (80.0-100.0) fL MCH 29.3 (25.0-34.0) pg MCHC 33.3 (32.0-36.0) g/dL RDW Std Deviation 48.6 H (36.4-46.3) fL RDW Coeff of Zoltan 15.1 H (11.5-14.5) % Plt Count 150 (130-400) K/uL MPV 11.1 (9.4-12.4) fL Immature Gran % (Auto) 0.3 % Neut % (Auto) 80.3 % Lymph % (Auto) 11.0 % [place] % (Auto) 6.6 % Eos % (Auto) 1.5 % Baso % (Auto) 0.3 % Neut # (Auto) 9.60 H (1.40-6.50) K/uL Lymph # (Auto) 1.31 (1.20-3.40) K/uL [place] # (Auto) 0.79 H (0.11-0.59) K/uL Eos # (Auto) 0.18 (0.00-0.50) K/uL Baso # (Auto) 0.04 (0.00-0.20) K/uL Immature Gran # (Auto) 0.04 (0.01-0.20) K/uL PT 11.0 (9.0-12.0) Seconds INR 1.0 (0.9-1.1) APTT 29 (21-31) Seconds PTT Ratio 1.1 POC pH (7.35-7.45) POC pCO2 (35-46) mmHg POC pO2 (80-95) mmHg POC HCO3 (19-24) halie/L POC Base Excess (-9-1.8) halie/L POC ABG O2 Sat (90-95) % POC Sodium 138 (135-144) mmol/L Sodium 137 (136-145) mmol/L POC Potassium 4.1 (3.3-5.0) mmol/L Potassium 4.2 (3.5-5.1) mmol/L POC Chloride 105 (101-112) mmol/L Chloride 105 (98-107) mmol/L Carbon Dioxide 24 (21-32) mmol/L POC Total CO2 22 L (24-31) mmol/L Anion Gap 8 (3-11) POC Anion Gap 17.0 (16-25) mmol/L POC BUN 15 (7-18) mg/dl BUN 14 (6-23) mg/dl Creatinine 0.95 (0.6-1.4) mg/dl POC Creatinine 0.9 (0.6-1.3) mg/dl Est Cr Clr Drug Dosing 144.2 ml/min eGFR 99.35 BUN/Creatinine Ratio 14.7 (10-20) Glucose 256 H (70-99(Fasting)) mg/dl POC Glucose (other) 262 H (70-99) mg/dl Lactate (0.4-2.0) mmol/L Calcium 9.3 (8.6-10.3) mg/dl POC Ioniz Calcium [place] 1.12 (1.12-1.32) mmol/l Magnesium 1.6 L (1.7-2.4) mg/dl Troponin I High Sens 17.1 (0-20) pg/ml B-Natriuretic Peptide 540 H (0-100) pg/ml Lipase 21 (11-82) U/L Procalcitonin 0.03 (0-0.5) ng/ml Adenovirus (PCR) Not Detected (NotDetected) B. pertussis DNA (PCR) Not Detected (NotDetected) B.parapertussis DNA PCR Not Detected (NotDetected) C. pneumoniae DNA (PCR) Not Detected (NotDetected) Coronavirus OC43 (PCR) Not Detected (NotDetected) Coronavirus HKU1 (PCR) Not Detected (NotDetected) Coronavirus 229E (PCR) Not Detected (NotDetected) SARS-CoV-2 (PCR) Not Detected (NotDetected) Coronavirus NL63 (PCR) Not Detected (NotDetected) Human Metapneumovir PCR Not Detected (NotDetected) Influenza Type A (PCR) Not Detected (NotDetected) Influenza Type B (PCR) Not Detected (NotDetected) M. pneumoniae (PCR) Not Detected (NotDetected) Parainfluenza 1 (PCR) Not Detected (NotDetected) Parainfluenza 2 (PCR) Not Detected (NotDetected) Parainfluenza 3 (PCR) Not Detected (NotDetected) Parainfluenza 4 (PCR) Not Detected (NotDetected) RSV (PCR) Not Detected (NotDetected) Entero/Rhino (PCR) Not Detected (NotDetected) 05/23/24 05/23/24 Range/Units 14:38 15:34 WBC (4.8-10.8) K/ul RBC (4.70-6.10) M/uL Hgb (14.0-18.0) g/dl POC Hgb 15.3 (14.0-18.0) g/dl Hct (42.0-52.0) % POC Hct 45 (42-52) % MCV (80.0-100.0) fL MCH (25.0-34.0) pg MCHC (32.0-36.0) g/dL RDW Std Deviation (36.4-46.3) fL RDW Coeff of Zoltan (11.5-14.5) % Plt Count (130-400) K/uL MPV (9.4-12.4) fL Immature Gran % (Auto) % Neut % (Auto) % Lymph % (Auto) % [place] % (Auto) % Eos % (Auto) % Baso % (Auto) % Neut # (Auto) (1.40-6.50) K/uL Lymph # (Auto) (1.20-3.40) K/uL [place] # (Auto) (0.11-0.59) K/uL Eos # (Auto) (0.00-0.50) K/uL Baso # (Auto) (0.00-0.20) K/uL Immature Gran # (Auto) (0.01-0.20) K/uL PT (9.0-12.0) Seconds INR (0.9-1.1) APTT (21-31) Seconds PTT Ratio POC pH 7.42 (7.35-7.45) POC pCO2 36 (35-46) mmHg POC pO2 51 L (80-95) mmHg POC HCO3 24 (19-24) halie/L POC Base Excess -1.0 (-9-1.8) halie/L POC ABG O2 Sat 86.0 L (90-95) % POC Sodium 137 (135-144) mmol/L Sodium (136-145) mmol/L POC Potassium 4.0 (3.3-5.0) mmol/L Potassium (3.5-5.1) mmol/L POC Chloride (101-112) mmol/L Chloride (98-107) mmol/L Carbon Dioxide (21-32) mmol/L POC Total CO2 25 (24-31) mmol/L Anion Gap (3-11) POC Anion Gap (16-25) mmol/L POC BUN (7-18) mg/dl BUN (6-23) mg/dl Creatinine (0.6-1.4) mg/dl POC Creatinine (0.6-1.3) mg/dl Est Cr Clr Drug Dosing ml/min eGFR BUN/Creatinine Ratio (10-20) Glucose (70-99(Fasting)) mg/dl POC Glucose (other) (70-99) mg/dl Lactate 1.2 (0.4-2.0) mmol/L Calcium (8.6-10.3) mg/dl POC Ioniz Calcium [place] (1.12-1.32) mmol/l Magnesium (1.7-2.4) mg/dl Troponin I High Sens (0-20) pg/ml B-Natriuretic Peptide (0-100) pg/ml Lipase (11-82) U/L Procalcitonin (0-0.5) ng/ml Adenovirus (PCR) (NotDetected) B. pertussis DNA (PCR) (NotDetected) B.parapertussis DNA PCR (NotDetected) C. pneumoniae DNA (PCR) (NotDetected) Coronavirus OC43 (PCR) (NotDetected) Coronavirus HKU1 (PCR) (NotDetected) Coronavirus 229E (PCR) (NotDetected) SARS-CoV-2 (PCR) (NotDetected) Coronavirus NL63 (PCR) (NotDetected) Human Metapneumovir PCR (NotDetected) Influenza Type A (PCR) (NotDetected) Influenza Type B (PCR) (NotDetected) M. pneumoniae (PCR) (NotDetected) Parainfluenza 1 (PCR) (NotDetected) Parainfluenza 2 (PCR) (NotDetected) Parainfluenza 3 (PCR) (NotDetected) Parainfluenza 4 (PCR) (NotDetected) RSV (PCR) (NotDetected) Entero/Rhino (PCR) (NotDetected) Imaging Data Attestation: I personally reviewed and interpreted this imaging study as follows: My Impression: Chest x-ray reviewed by me shows cardiomegaly with pulmonary edema and bilateral infiltrates. Radiologist's Impression: Chest CTA 05/23/24 14:10 CT ANGIOGRAM OF THE CHEST CLINICAL HISTORY: Chest pain. Shortness of breath. COMPARISON STUDY: Chest CT March 30, 2023. Chest radiograph performed earlier today. TECHNIQUE: Following the IV administration of 119 cc of Optiray 320, CT angiogram of the chest was performed from the upper abdomen to the thoracic inlet utilizing the pulmonary embolus protocol. Images are reviewed in the axial, sagittal, and coronal planes. 3-D MIPS images are created and assessed. IV contrast was administered without complication. A dose lowering technique was utilized adhering to the principles of ALARA. CT DOSE: 958.64 mGy.cm FINDINGS: No central or lobar pulmonary emboli are identified. Segmental and subsegmental pulmonary arteries are suboptimally assessed. Moderate cardiomegaly is unchanged. A left subclavian pacer is in place. Dilatation of the ascending aorta measuring 4.4 cm is unchanged. There is no pericardial effusion. Bilateral gynecomastia. Small right and trace left pleural effusions are present with there is no pneumothorax. Extensive alveolar opacities within the lungs are present. Interlobular septal thickening is also present. Lungs are suboptimally assessed due to motion artifact. Mildly enlarged mediastinal lymph nodes are probably reactive. These are similar to prior CT. IMPRESSION: 1. No pulmonary emboli identified although segmental and subsegmental pulmonary arteries suboptimally assessed. 2. Cardiomegaly with interstitial pulmonary edema. Small right and trace left pleural effusions. 3. Extensive alveolar opacities within the lungs which may represent multifocal pneumonia or alveolar pulmonary edema. 4. Mildly enlarged mediastinal lymph nodes, likely reactive. ACT 112: Negative or not required by law. Electronically signed by: Eyad Rosario M.D. 05/23/2024 3:25 PM Chest X-Ray 05/23/24 14:10 XR chest 1V portable CLINICAL HISTORY: Chest pain, nonspecific COMPARISON STUDY: 01/16/2024 FINDINGS: Cardiac pacemaker is present. There is stable cardiomegaly without pulmonary vascular congestion. There is patchy consolidation in the lower lungs with obscuration of the diaphragm. No pneumothorax. IMPRESSION: Bilateral lower lung pneumonia. ACT 112: Negative or not required by law. Electronically signed by: Yuri Dillon M.D. 05/23/2024 2:44 PM ECG Data Attestation: I personally reviewed and interpreted this ECG as follows: Interpretation: EKG #1 at 1415: Sinus tachycardia with a rate of 120. NM QRS and QTc intervals are within normal limits. No ST elevation or ST depression EKG #2 at 1600: Sinus tachycardia with rate of 115. NM QRS and QTc intervals within normal limits. No ST elevation or ST depression MDM Narrative 1407: The patient was evaluated in room A1. A complete history and physical exam was performed Cardiac monitoring: An order was placed for continuous cardiac monitoring. The monitor shows a rate of 120 with sinus tachycardia rhythm interpreted by me 1415: Chest x-ray reviewed by me shows cardiomegaly with pulmonary edema and bilateral infiltrates. Patient be taken for CTA of the chest given that he was having hemoptysis also. 1530: Vital signs stable on BiPAP. Labs show white blood cell count of 11.96 coagulation studies unremarkable. ABG is unremarkable. BNP 540 high- sensitivity troponin 17.1. Patient treated with Lasix as well as IV antibiotics. 1600: Nursing informed me that they thought the patient had a run of V. tach on the engine monitor. I reviewed the telemetry strip I did not visualize any V. tach. 1629: Spoke with Yamil from [facility]. He states that the patient has received no shocks. He states that the patient has intermittent breaks in V. tach however he always self converts into a sinus rhythm and no shocks were delivered as his defibrillator said to only shock after 30 beats of V. tach. [facility] Impression & Plan Combined systolic and diastolic heart failure, COPD (chronic obstructive pulmonary disease), Pneumonia Discharge Plan Visit Data Chief Complaint: Cardiac Assessment ED Provider: Onofre Almaraz Discharge Problem: Combined systolic and diastolic heart failure, COPD (chronic obstructive pulmonary disease), Pneumonia Patient Disposition: Admitted As Inpatient Forms Stand Alone Forms: [facility] Prescriptions Prescriptions: No Action (DME) FreeStyle Karla 3 [place] Misc See Rx Instructions .Route Qty: 1 1RF Rx Instructions: tr blood sugar (DME) FreeStyle Karla 3 [place] Misc See Rx Instructions .ROUTE .MEDSUPPLY Qty: 1 0RF Rx Instructions: use with karla 3 + sensor tirzepatide 7.5 mg/0.5 mL pen injector 7.5 mg subcut Q7D 30 Days Qty: 2 3RF Rx Instructions: MONDAYS (DME) pen needle, diabetic [Comfort EZ Pen [place]] 31 gauge x 5/16" needle See Rx Instructions .Route Qty: 100 3RF Rx Instructions: use when administering insuling daily budesonide 0.25 mg/2 mL suspension for nebulization 0.25 mg inhalation DAILY PRN (Reason: Shortness Of Breath) budesonide-formoterol [Symbicort] 160-4.5 mcg/actuation HFA aerosol inhaler 2 inh inhalation BID Qty: 3 3RF Rx Instructions: 2 puffs twice per day. Rinse mouth after each use (DME) OneTouch Verio test strips Strip See Rx Instructions miscellaneous .MEDSUPPLY Qty: 100 5RF Rx Instructions: check 3x a day (DME) lancets [V-me MediaTouch Delica Plus Lancet] 30 gauge mis See Rx Instructions .ROUTE .MEDSUPPLY Qty: 100 5RF Rx Instructions: use new lancet 3x a day (DME) blood-glucose meter [OneTouch Verio Flex meter] Mis See Rx Instructions .ROUTE .MEDSUPPLY Qty: 1 0RF Rx Instructions: As directed hydroxyzine HCl 25 mg tablet 25 mg PO TID PRN (Reason: itching) Qty: 90 1RF (DME) FreeStyle Karla 3 Plus Sensor Device See Rx Instructions .ROUTE .MEDSUPPLY Qty: 2 11RF Rx Instructions: change sensor every 15 days atorvastatin 10 mg tablet 10 mg PO DAILY Qty: 90 3RF nystatin 100,000 unit/gram powder 1 applic topical BID PRN (Reason: Skin Irritation) Qty: 60 0RF insulin glargine 100 unit/mL (3 mL) insulin pen 50 unit subcut BID triamcinolone acetonide 0.025 % cream 1 applic topical TID PRN (Reason: rash) Qty: 454 0RF spironolactone 100 mg tablet 100 mg PO BID Qty: 180 1RF isosorbide mononitrate 60 mg tablet extended release 24 hr 60 mg PO DAILY Qty: 90 1RF metoprolol succinate 100 mg tablet extended release 24 hr 100 mg PO BID Qty: 180 1RF dapagliflozin propanediol [Farxiga] 10 mg tablet 10 mg PO DAILY Qty: 90 1RF Entresto 97-103 mg tablet 1 tab PO BID Qty: 180 1RF torsemide 100 mg tablet 100 mg PO BID Qty: 180 1RF Rx Instructions: 100 mg orally twice a day; nitroglycerin [Nitrostat] 0.4 mg tablet, sublingual 0.4 mg sublingual UD PRN (Reason: Chest Pain) aspirin [Neisha Low Dose Aspirin] 81 mg tablet,delayed release (DR/EC) 81 mg PO QAM albuterol sulfate 2.5 mg /3 mL (0.083 %) solution for nebulization 2.5 mg inhalation Q6H PRN (Reason: Shortness Of Breath Or Wheezing) Rx Instructions: Use every 6 hours as needed with nebulizer albuterol sulfate 90 mcg/actuation HFA aerosol inhaler 1 inh inhalation QID PRN (Reason: Shortness Of Breath Or Wheezing) (DME) Oxygen Home Liters Per Minute See Rx Instructions .Route Qty: 5 0RF Rx Instructions: As directed lidocaine 5 % adhesive patch,medicated 1 patch topical DAILY PRN (Reason: Pain) trolamine salicylate [Myoflex] 10 % Cream 1 applic EXT BID PRN (Reason: left sided neck pain) Qty: 35.4 0RF Rx Instructions: Please give tube from hospital Referrals Referrals: Gosia Martinez MD [Primary Care Provider] -
[2024-05-23] MEDS ORDERED: ONDANSETRON INJ 2 MG/ML 2 ML VIAL IV PRN (18:10)
[2024-05-23] MEDS ORDERED: ACETAMINOPHEN 325 MG TAB PO PRN (18:10)
[2024-05-23] MEDS ORDERED: GLUCOSE 40% GEL 15 GM TUBE PO PRN (18:19)
[2024-05-23] MEDS ORDERED: DEXTROSE 50% 50 ML SYRINGE IV PRN (18:19)
[2024-05-23] MEDS ORDERED: GLUCAGON FOR INJ 1 MG VIAL SQ PRN (18:19)
[2024-05-23] MEDS ORDERED: CARBOHYDRATES FOR HYPOGLYCEMIA PO PRN (18:19)
[2024-05-23] MEDS ORDERED: GLUCOSE 10 TAB/TUBE PO PRN (18:19)
[2024-05-23] MEDS: MAGNESIUM SULFATE / D5W 1 GM/100 ML BAG IV SCH (19:50)
[2024-05-23] MEDS: FLUTICASONE/VILANTEROL 100/25MCG 14 PUFFS/INHALER INH SCH (20:27)
[2024-05-23] MEDS: SPIRONOLACTONE 25 MG TAB PO SCH (20:27)
[2024-05-23] MEDS: VALSARTAN/SACUBITRIL 103/97MG TAB PO SCH (20:27)
[2024-05-23] MEDS: METOPROLOL SUCC 50MG EXT REL TAB PO SCH (20:27)
[2024-05-23] MEDS: INSULIN ASPART PER UNIT CHARGE SC SCH (20:53)
[2024-05-23] MEDS: LANTUS PER UNIT CHARGE SQ SCH (20:53)
[2024-05-23] MEDS: ENOXAPARIN INJ 40 MG/0.4 ML SYR SQ SCH (20:58)
[2024-05-23] MEDS ORDERED: NON-FORMULARY MEDICATION (Insulin Glargine 100 unit/mL (3 mL) insulin pen) SQ SCH (21:00)
[2024-05-24] MEDS: INSULIN ASPART PER UNIT CHARGE SC STA ×2 (00:04→04:01)
[2024-05-24] MEDS: MICONAZOLE NITRATE POWDER 85 GM EXT PRN (01:02)
--- NOTE | 2024-05-24 07:23 | Hospitalist Progress Note ---
Date of Service May 24, 2024 Assessment & Plan (1) Acute on chronic heart failure with reduced ejection fraction (HFrEF, <= 40%): (2) Acute respiratory failure with hypoxia: (3) Uncontrolled diabetes mellitus with hyperglycemia: (4) Obstructive sleep apnea: (5) Non-sustained ventricular tachycardia: Plan 48 year old with HFrEF presents to the ER with hypoxia, cyanosis and shortness of breath with 1 week of symptoms #Acute respiratory failure with hypoxia - weaned off of biPAP to 10L NC, baseline on 5L - CXR (05/23/24): b/l lower lobe pna - CTA chest (05/23/24): no PE, + cardiomegaly with interstitial pulmonary edema, small right and trace left pleural effusions, extensive alveolar opacities within the lungs which may represent multifocal pneumonia or alveolar pulmonary edema, mildly enlarged lymph nodes (likely reactive) - WBC wnl to suggest pna, procal: 0.03 (05/23/24) - cont HF management #Acute on chronic heart failure with reduced ejection fraction (LVEF 15-20%) #NSVT - last ECHO (09/2023): LVEF 15-20% with severely dilated LV - Lasix 80 mg IV BID, nitro paste 2% 1 inch (discontinue when restarting his ISMN tomorrow) - Continue his usual Entresto, metoprolol succinate and spironolactone (will reduce dose back to his last admission dose given history of non-compliance his BP tends to drop significantly on the day after admission) - Strict I's and O's - Daily weights - keep K > 4 / Mg > 2 - given severity of sxs and degree of HF, cardiology consulted, recs appreciated #T2DM HbA1C 7.6 in Feb, no need to repeat as within 3 months Insulin per last admission - Lantus 35 units BID Novolog: --Goal BSG Range: Low 110mg/dL, High 140 mg/dL --Correction Factor: 15mg/dL/unit --Carbohydrate ratio = 8 g/unit --BSGs ACHS if eating, q6h if npo #COPD No wheezing to suspect exacerbation, continue maintenance inhalers #MARIELENA CPAP HS VTE Prophylaxis - Lovenox 40mg SQ BID Disposition - d/c home pending clinical improvement Admission and Anticipated Discharge Date Admission Date: May 23, 2024 Subjective no acute events overnight he states he is compliant with meds and diet. further exploration revealed that he eats a lot processed and does not track his salt, fluid, or sugar intake. Review of Systems Review of Systems: comprehensive ROS negative Physical Exam Physical Exam: Gen: NAD, in bed comfortable HEENT: NC/AT, anicteric, MMM Lungs: CTAB CVS: s1s2nl, RRR Abd: protuberant, nl bowel sounds, soft, NT : no otto Ext: edema resolving Neuro: awake and alert Psych: calm / cooperative2 Results & Data Results & Data Vital Signs (Past 12 Hours) Vital Signs Temp Pulse Pulse Resp BP Pulse Ox Pulse Ox 05/24/24 06:21 90 132/90 98 05/24/24 04:07 88 18 124/76 97 05/24/24 02:42 82 27 H 96 05/24/24 01:16 36.7 C 96 H 20 141/96 H 90 05/23/24 23:05 98 H 91 05/23/24 22:12 152/109 H 05/23/24 21:54 104 H 05/23/24 19:48 112 H 05/23/24 19:45 05/23/24 19:40 36.9 C 108 H 26 H 160/115 H 91 05/23/24 19:40 91 O2 Del Method O2 Del Method O2 Flow Rate O2 Flow Rate FiO2 05/24/24 06:21 BiPAP 05/24/24 04:07 BiPAP 05/24/24 02:42 60 05/24/24 01:16 High Flow Nasal Cannula 9 05/23/24 23:05 High Flow Nasal Cannula 9 05/23/24 22:12 05/23/24 21:54 05/23/24 19:48 05/23/24 19:45 BiPAP, High Flow Nasal Cannula 9 05/23/24 19:40 Oxymask 9 05/23/24 19:40 Oxymask 9 PG Care Time/CCT Total # of Minutes Spent Total Time Spent with Patient: Total time spent is greater than 50% in coordination of care (as documented) at patient's floor/unit and/or counseling patient: Coding Level of Care Code 83276 SUB INP/OBS CARE 2/35MIN Diagnoses Acute on chronic heart failure with reduced ejection fraction (HFrEF, <= 40%) I50.23 Acute respiratory failure with hypoxia J96.01 Uncontrolled diabetes mellitus with hyperglycemia E11.65 Obstructive sleep apnea G47.33 Non-sustained ventricular tachycardia I47.29
[2024-05-24 08:18] LABS: Hematocrit (blood only) 44.5 % (42.0-52.0); Hemoglobin 14.8 g/dl (14.0-18.0); Mean Corpuscular Hemoglobin 29.1 pg (25.0-34.0); Mean Corpuscular Hgb Conc 33.3 g/dL (32.0-36.0); Mean Corpuscular Volume 87.6 fL (80.0-100.0); Mean Platelet Volume 10.6 fL (9.4-12.4); Platelet Count 148 K/uL (130-400); RDW Coefficient of Variation 14.9 % (11.5-14.5); RDW Standard Deviation 48.2 fL (36.4-46.3); Red Blood Count 5.08 M/uL (4.70-6.10); White Blood Count 10.16 K/ul (4.8-10.8)
[2024-05-24 08:33] LABS: BUN Creatinine Ratio 19.3 (10-20); Calcium 8.8 mg/dl (8.6-10.3); Creatinine Clr Calc Pharmacy 157.6 ml/min; Magnesium 1.9 mg/dl (1.7-2.4); Potassium 4.6 mmol/L (3.5-5.1)
[2024-05-24] MEDS: ATORVASTATIN 10 MG TAB PO SCH (08:50)
[2024-05-24] MEDS: ISOSORBIDE MONO EXTENDED REL 60 MG TABCR PO SCH (08:50)
[2024-05-24] MEDS: FUROSEMIDE 40 MG/4 ML VIAL IV SCH (08:51)
[2024-05-24] MEDS: ASPIRIN 81 MG ECTAB PO SCH (09:04)
--- NOTE | 2024-05-24 09:35 | Cardiology Consultation ---
Date of Consultation May 24, 2024 Assessment & Plan (1) Acute on chronic heart failure with reduced ejection fraction (HFrEF, <= 40%): (2) Non-sustained ventricular tachycardia: (3) NICM (nonischemic cardiomyopathy): (4) AICD (automatic cardioverter/defibrillator) present: (5) Pneumonia: Plan Complex 48-year-old male with known nonischemic cardiomyopathy with severe LV dysfunction class III-IV chronic congestive heart failure. Underlying issues include morbid obesity with severe obstructive sleep apnea and chronic hypoxia. Currently not using CPAP Patient presents with decompensated respiratory failure with pulmonary edema on chest x-ray and possible superimposed pneumonia. Increasing oxygen demands at home. Tachycardic on presentation with concerns regarding possible defibrillator activation not founded on interrogation. Recommendations: Continue IV diuretics Will increase metoprolol succinate to 125 mg twice per day, Continue Entresto, spironolactone Mandatory that he resume CPAP Normally functioning pacer defibrillator in place. Will not initiate antiarrhythmic therapy at this time History of Present Illness Reason for Consultation: Decompensated systolic heart failure, nonsustained ventricular tachycardia Requesting Physician: [facility] hospitalist Attending Physician: Neeta Cardoza MD History of Present Illness Patient is a 48-year-old male with ongoing cardiac concerns. Last cardiology outpatient evaluation 07/18/2023 1. Chronic respiratory failure secondary to obesity, severe MARIELENA with non compliance 2. Chronic combined systolic and diastolic heart failure, nonischemic cardiomyopathy, most recent ejection fraction the range of 15-20% on echocardiogram. 3. S/P single chamber ICD implantation on 04/08/19 - appropriate function. 4. Paroxysmal VT noted on device interrogation 5. Hypertension 6. Medication and appt non compliance 7. MARIELENA 8. Obesity 9. DM Patient referred for evaluation after acute hospitalization with worsening dyspnea, respiratory failure. Signs and symptoms of decompensated systolic heart failure. Patient unaware of weight gain but is increased in abdominal girth and edema. Has been wearing oxygen and caregiver and niece has been increasing oxygen supplementation at home and up to 5 L nasal cannula. Previously on CPAP but currently not using it. Notes symptoms of sharp jabbing in the left chest as well as possible palpitations. No syncope or near syncope. 1 mechanical fall 4 days ago climbing out of the bathtub. Allergies Allergy/AdvReac Type Severity Reaction Status Date / Time albuterol Allergy Severe proair Verified 05/23/24 14:54 "trouble taking breaths" ceftriaxone Allergy Severe SHORTNESS Verified 05/23/24 14:54 OF BREATH lidocaine Allergy Severe SHORTNESS Verified 05/23/24 14:54 OF BREATH, diaphoretic, hives mushroom Allergy Severe Anaphylaxis Verified 05/23/24 14:54 procaine Allergy Severe SHORTNESS Verified 05/23/24 14:54 OF BREATH, diaphoretic, hives amoxicillin Allergy Intermediate HIVES/FACIAL Verified 05/23/24 14:54 SWELLING clavulanic acid Allergy Intermediate HIVES/FACIAL Verified 05/23/24 14:54 SWELLING lisinopril Allergy Intermediate HIVES Verified 05/23/24 14:54 shellfish derived Allergy Unknown Unknown Verified 05/23/24 14:54 acetaminophen AdvReac Mild NAUSEA Verified 05/23/24 14:54 Fish Containing Products AdvReac Unknown Unknown Verified 05/23/24 14:54 Home Medications Medication Instructions Recorded Confirmed Type nitroglycerin 0.4 mg sublingual 0.4 mg sublingual UD PRN Chest Pain 04/24/19 05/23/24 History tablet (Nitrostat) aspirin 81 mg tablet,delayed 81 mg PO QAM 06/16/21 05/23/24 History release (Neisha Low Dose Aspirin) albuterol sulfate 2.5 mg/3 mL 2.5 mg inhalation Q6H PRN 12/02/21 05/23/24 History (0.083 %) solution for nebulization Shortness Of Breath Or Wheezing budesonide 0.25 mg/2 mL suspension 0.25 mg inhalation DAILY PRN 09/15/22 05/23/24 History for nebulization Shortness Of Breath blood-glucose meter (OneTouch #1 ea 10/12/22 04/28/24 Rx Verio Flex Meter) lancets 30 gauge (OneTouch Delica #100 ea 10/12/22 04/28/24 Rx Plus Lancet) Symbicort 160 mcg-4.5 2 inh inhalation BID #3 Inhalers 11/14/22 05/23/24 Rx mcg/actuation HFA aerosol inhaler (budesonide-formoterol) blood sugar diagnostic (OneTouch #100 ea 01/17/23 04/28/24 Rx Verio test strips) pen needle, diabetic 31 gauge x #100 ea 02/16/23 04/28/24 Rx 5/16" (Comfort EZ Pen [place]) Oxygen Home #5 L 04/01/23 04/28/24 Rx hydroxyzine HCl 25 mg tablet 25 mg PO TID PRN itching #90 tabs 05/31/23 05/23/24 Rx albuterol sulfate 90 mcg/actuation 1 inh inhalation QID PRN Shortness 10/12/23 05/23/24 History aerosol inhaler Of Breath Or Wheezing lidocaine 5 % topical patch 1 patch topical DAILY PRN Pain 11/03/23 05/23/24 History trolamine salicylate 10 % topical 1 applic EXT BID PRN left sided 11/06/23 05/23/24 Rx cream (Myoflex) neck pain #35.4 grams blood-glucose sensor (FreeStyle #2 ea 12/13/23 04/28/24 Rx Karla 3 Plus Sensor device) blood-glucose,classification inspector,cont #1 ea 01/14/24 04/28/24 Rx (FreeStyle Karla 3 [place]) blood-glucose,classification inspector,cont #1 ea 01/14/24 04/28/24 Rx (FreeStyle Karla 3 [place]) atorvastatin 10 mg tablet 10 mg PO DAILY #90 tabs 02/04/24 05/23/24 Rx Farxiga 10 mg tablet 10 mg PO DAILY #90 tabs 04/28/24 05/23/24 Rx (dapagliflozin propanediol) insulin glargine 100 unit/mL (3 50 unit subcut BID 04/28/24 05/23/24 History mL) subcutaneous pen isosorbide mononitrate 60 mg 60 mg PO DAILY #90 tabs 04/28/24 05/23/24 Rx tablet,extended release 24 hr metoprolol succinate 100 mg 100 mg PO BID #180 tabs 04/28/24 05/23/24 Rx tablet,extended release 24 hr sacubitril 97 mg-valsartan 103 mg 1 tab PO BID #180 tabs 04/28/24 05/23/24 Rx tablet (Entresto) spironolactone 100 mg tablet 100 mg PO BID #180 tabs 04/28/24 05/23/24 Rx torsemide 100 mg tablet 100 mg PO BID #180 tabs 04/28/24 05/23/24 Rx triamcinolone acetonide 0.025 % 1 applic topical TID PRN rash #454 04/28/24 05/23/24 Rx topical cream grams nystatin 100,000 unit/gram topical 1 applic topical BID PRN Skin 05/09/24 05/23/24 Rx powder Irritation #60 grams tirzepatide 7.5 mg/0.5 mL 7.5 mg (0.5 mL) subcut Q7D 30 days 05/09/24 05/23/24 Rx subcutaneous pen injector #2 mL Patient History Medical History Hypomagnesemia Medical non-compliance Intellectual disability Chronic dental pain Small bowel obstruction Housing instability, currently housed, at risk for homelessness Hearing loss of both ears Nonproliferative retinopathy due to secondary diabetes Dilatation of thoracic aorta Iliac aneurysm Vitamin D insufficiency Previously deficient, taking Vit D supplementation Umbilical hernia Lung nodule Fatty liver Surgical History H/O oral surgery History of carpal tunnel surgery S/P tonsillectomy History of cholecystectomy Family History Father , age 57 of an [place]. Heart disease Myocardial infarction Mother , age 67 of a ruptured neck vessel Sudden Other Depression Lung disease No pertinent family history Denies family history of Ovarian cancer Prostate cancer Breast cancer Colorectal cancer Social History Smoking Status: Former smoker Tobacco Type: Cigarettes Age Started Using Tobacco: 14; Age Quit Using Tobacco: 18; packs per day: 1; Cigarettes Per Day: 2 PPD; Second Hand Exposure: No; Do You Dip or Chew Tobacco: No; Hx Alcohol Use: No Hx Substance Use: No Preferred Language: Swazi Communication Ability: Effective Visual Impairment: No Limitations Hearing Ability: Normal Full Stack Python Developer Required: No Beliefs That Will Affect Care: None marital status: Current Living Situation: Family Current Living Situation Comment: Lives at home with current occupational status: unemployed How many Children do You have: 0 Feels Safe at Home: Yes Safety Concerns: Feels Safe At This Time Childhood Exposure to Second-Hand Smoke: Yes Dental Care, Regularly: Yes Physical Activity Frequency: Does not Exercise Seatbelt Use: never Sunscreen Use: No Assistive Devices: Cane, Scooter/Electric Scooter and Walker Assistive Devices Comment: Personal walker at bedside Review of Systems Review of Systems: All systems reviewed & are unremarkable except as noted in HPI & below Physical Exam Constitutional: + morbidly obese; no acute distress Eyes: PERRL, conjunctivae normal, anicteric sclerae ENMT: external ear and nose normal, oropharynx normal Neck: trachea midline, no thyromegaly + thick neck Respiratory: Auscultation: + diminished lung sounds and + crackles Cardiovascular: Rate/Rhythm: regular rate, regular rhythm and + tachycardic Extremities: + edema Chest (Breasts): Chest: + pacemaker (AICD left shoulder without irritation or tenderness) Gastrointestinal (Abdomen): Percussion/Palpation: abdomen soft; abdomen nontender Results & Data Vital Signs (Past 12 Hours) Vital Signs Temp Pulse Pulse Resp BP Pulse Ox O2 Del Method 05/24/24 08:29 36.4 C L 86 18 128/84 92 Nasal Cannula 05/24/24 08:00 72 05/24/24 06:21 90 132/90 98 BiPAP 05/24/24 04:07 88 18 124/76 97 BiPAP 05/24/24 02:42 82 27 H 96 05/24/24 01:16 36.7 C 96 H 20 141/96 H 90 High Flow Nasal Cannula 05/23/24 23:05 98 H 91 High Flow Nasal Cannula 05/23/24 22:12 152/109 H 05/23/24 21:54 104 H O2 Flow Rate FiO2 05/24/24 08:29 10 05/24/24 08:00 05/24/24 06:21 05/24/24 04:07 05/24/24 02:42 60 05/24/24 01:16 9 05/23/24 23:05 9 05/23/24 22:12 05/23/24 21:54 Laboratory Results Laboratory Results - last 24 hr 05/23/24 05/23/24 05/23/24 14:21 14:28 14:33 WBC 11.96 H RBC 5.33 Hgb 15.6 POC Hgb 16.7 Hct 46.8 POC Hct 49 MCV 87.8 MCH 29.3 MCHC 33.3 RDW Std Deviation 48.6 H RDW Coeff of Zoltan 15.1 H Plt Count 150 MPV 11.1 Immature Gran % (Auto) 0.3 Neut % (Auto) 80.3 Lymph % (Auto) 11.0 Hamilton % (Auto) 6.6 Eos % (Auto) 1.5 Baso % (Auto) 0.3 Neut # (Auto) 9.60 H Lymph # (Auto) 1.31 Hamilton # (Auto) 0.79 H Eos # (Auto) 0.18 Baso # (Auto) 0.04 Immature Gran # (Auto) 0.04 PT 11.0 INR 1.0 APTT 29 PTT Ratio 1.1 POC pH POC pCO2 POC pO2 POC HCO3 POC Base Excess POC ABG O2 Sat POC Sodium 138 Sodium 137 POC Potassium 4.1 Potassium 4.2 POC Chloride 105 Chloride 105 Carbon Dioxide 24 POC Total CO2 22 L Anion Gap 8 POC Anion Gap 17.0 POC BUN 15 BUN 14 Creatinine 0.95 POC Creatinine 0.9 Est Cr Clr Drug Dosing 144.2 eGFR 99.35 BUN/Creatinine Ratio 14.7 Glucose 256 H POC Glucose POC Glucose (other) 262 H Lactate Calcium 9.3 POC Ioniz Calcium Yuni 1.12 Phosphorus Magnesium 1.6 L Troponin I High Sens 17.1 B-Natriuretic Peptide 540 H Lipase 21 Procalcitonin 0.03 Adenovirus (PCR) Not Detected B. pertussis DNA (PCR) Not Detected B.parapertussis DNA PCR Not Detected C. pneumoniae DNA (PCR) Not Detected Coronavirus OC43 (PCR) Not Detected Coronavirus HKU1 (PCR) Not Detected Coronavirus 229E (PCR) Not Detected SARS-CoV-2 (PCR) Not Detected Coronavirus NL63 (PCR) Not Detected Human Metapneumovir PCR Not Detected Influenza Type A (PCR) Not Detected Influenza Type B (PCR) Not Detected M. pneumoniae (PCR) Not Detected Parainfluenza 1 (PCR) Not Detected Parainfluenza 2 (PCR) Not Detected Parainfluenza 3 (PCR) Not Detected Parainfluenza 4 (PCR) Not Detected RSV (PCR) Not Detected Entero/Rhino (PCR) Not Detected 05/23/24 05/23/24 05/23/24 14:38 15:34 19:53 WBC RBC Hgb POC Hgb 15.3 Hct POC Hct 45 MCV MCH MCHC RDW Std Deviation RDW Coeff of Zoltan Plt Count MPV Immature Gran % (Auto) Neut % (Auto) Lymph % (Auto) [place] % (Auto) Eos % (Auto) Baso % (Auto) Neut # (Auto) Lymph # (Auto) [place] # (Auto) Eos # (Auto) Baso # (Auto) Immature Gran # (Auto) PT INR APTT PTT Ratio POC pH 7.42 POC pCO2 36 POC pO2 51 L POC HCO3 24 POC Base Excess -1.0 POC ABG O2 Sat 86.0 L POC Sodium 137 Sodium POC Potassium 4.0 Potassium POC Chloride Chloride Carbon Dioxide POC Total CO2 25 Anion Gap POC Anion Gap POC BUN BUN Creatinine POC Creatinine Est Cr Clr Drug Dosing eGFR BUN/Creatinine Ratio Glucose POC Glucose 254 H POC Glucose (other) Lactate 1.2 Calcium POC Ioniz Calcium [place] Phosphorus Magnesium Troponin I High Sens B-Natriuretic Peptide Lipase Procalcitonin Adenovirus (PCR) B. pertussis DNA (PCR) B.parapertussis DNA PCR C. pneumoniae DNA (PCR) Coronavirus OC43 (PCR) Coronavirus HKU1 (PCR) Coronavirus 229E (PCR) SARS-CoV-2 (PCR) Coronavirus NL63 (PCR) Human Metapneumovir PCR Influenza Type A (PCR) Influenza Type B (PCR) M. pneumoniae (PCR) Parainfluenza 1 (PCR) Parainfluenza 2 (PCR) Parainfluenza 3 (PCR) Parainfluenza 4 (PCR) RSV (PCR) Entero/Rhino (PCR) 05/23/24 05/24/24 05/24/24 23:36 02:03 03:43 WBC RBC Hgb POC Hgb Hct POC Hct MCV MCH MCHC RDW Std Deviation RDW Coeff of Zoltan Plt Count MPV Immature Gran % (Auto) Neut % (Auto) Lymph % (Auto) [place] % (Auto) Eos % (Auto) Baso % (Auto) Neut # (Auto) Lymph # (Auto) [place] # (Auto) Eos # (Auto) Baso # (Auto) Immature Gran # (Auto) PT INR APTT PTT Ratio POC pH POC pCO2 POC pO2 POC HCO3 POC Base Excess POC ABG O2 Sat POC Sodium Sodium POC Potassium Potassium POC Chloride Chloride Carbon Dioxide POC Total CO2 Anion Gap POC Anion Gap POC BUN BUN Creatinine POC Creatinine Est Cr Clr Drug Dosing eGFR BUN/Creatinine Ratio Glucose POC Glucose 331 H* 272 H 214 H POC Glucose (other) Lactate Calcium POC Ioniz Calcium [place] Phosphorus Magnesium Troponin I High Sens B-Natriuretic Peptide Lipase Procalcitonin Adenovirus (PCR) B. pertussis DNA (PCR) B.parapertussis DNA PCR C. pneumoniae DNA (PCR) Coronavirus OC43 (PCR) Coronavirus HKU1 (PCR) Coronavirus 229E (PCR) SARS-CoV-2 (PCR) Coronavirus NL63 (PCR) Human Metapneumovir PCR Influenza Type A (PCR) Influenza Type B (PCR) M. pneumoniae (PCR) Parainfluenza 1 (PCR) Parainfluenza 2 (PCR) Parainfluenza 3 (PCR) Parainfluenza 4 (PCR) RSV (PCR) Entero/Rhino (PCR) 05/24/24 05/24/24 05/24/24 05:59 07:34 07:40 WBC 10.16 RBC 5.08 Hgb 14.8 POC Hgb Hct 44.5 POC Hct MCV 87.6 MCH 29.1 MCHC 33.3 RDW Std Deviation 48.2 H RDW Coeff of Zoltan 14.9 H Plt Count 148 MPV 10.6 Immature Gran % (Auto) Neut % (Auto) Lymph % (Auto) [place] % (Auto) Eos % (Auto) Baso % (Auto) Neut # (Auto) Lymph # (Auto) [place] # (Auto) Eos # (Auto) Baso # (Auto) Immature Gran # (Auto) PT INR APTT PTT Ratio POC pH POC pCO2 POC pO2 POC HCO3 POC Base Excess POC ABG O2 Sat POC Sodium Sodium 137 POC Potassium Potassium 4.6 POC Chloride Chloride 103 Carbon Dioxide 30 POC Total CO2 Anion Gap 4 POC Anion Gap POC BUN BUN 16 Creatinine 0.83 POC Creatinine Est Cr Clr Drug Dosing 157.6 eGFR 108.63 BUN/Creatinine Ratio 19.3 Glucose 192 H POC Glucose 186 H 194 H POC Glucose (other) Lactate Calcium 8.8 POC Ioniz Calcium [place] Phosphorus 4.0 Magnesium 1.9 Troponin I High Sens B-Natriuretic Peptide Lipase Procalcitonin Adenovirus (PCR) B. pertussis DNA (PCR) B.parapertussis DNA PCR C. pneumoniae DNA (PCR) Coronavirus OC43 (PCR) Coronavirus HKU1 (PCR) Coronavirus 229E (PCR) SARS-CoV-2 (PCR) Coronavirus NL63 (PCR) Human Metapneumovir PCR Influenza Type A (PCR) Influenza Type B (PCR) M. pneumoniae (PCR) Parainfluenza 1 (PCR) Parainfluenza 2 (PCR) Parainfluenza 3 (PCR) Parainfluenza 4 (PCR) RSV (PCR) Entero/Rhino (PCR) Diagnostic Findings Pacer defibrillator interrogation 04/02/2024 Normal device function estimated battery life 6.5 years Short salvos of nonsustained ventricular tachycardia less than 6-secondswithout device fire intervention
[2024-05-24] MEDS: METOPROLOL SUCC 25MG EXT REL TAB PO ONE (11:09)
--- NOTE | 2024-05-24 12:37 | Electrocardiogram Report ---
Test Reason : Blood Pressure : */* mmHG Vent. Rate : 82 BPM Atrial Rate : 82 BPM P-R Int : 174 ms QRS Dur : 110 ms QT Int : 434 ms P-R-T Axes : 35 -29 141 degrees QTcB Int : 507 ms Normal sinus rhythm Possible Left atrial enlargement Incomplete left bundle block Minimal voltage criteria for LVH, may be normal variant Prolonged QT Abnormal ECG When compared with ECG of 23-May-2024 18:57, (unconfirmed) T wave amplitude has decreased in Inferior leads T wave inversion more evident in Lateral leads Confirmed by Rodney Cary ([id number]) on 05/24/2024 12:36:49 PM Referred By: REFERRED SELF Confirmed By: Rodney Cary
[2024-05-24] MEDS: METOPROLOL SUCC 25MG EXT REL TAB PO SCH (21:05)
[2024-05-25 06:48] LABS: Hematocrit (blood only) 46.2 % (42.0-52.0); Hemoglobin 15.3 g/dl (14.0-18.0); Mean Corpuscular Hemoglobin 29.1 pg (25.0-34.0); Mean Corpuscular Hgb Conc 33.1 g/dL (32.0-36.0); Mean Platelet Volume 10.6 fL (9.4-12.4); Platelet Count 161 K/uL (130-400); RDW Standard Deviation 48.6 fL (36.4-46.3); Red Blood Count 5.25 M/uL (4.70-6.10)
[2024-05-25 07:06] LABS: BUN Creatinine Ratio 27.1 (10-20); Calcium 8.8 mg/dl (8.6-10.3); Creatinine Clr Calc Pharmacy 136.3 ml/min; Phosphorus 3.9 mg/dl (2.5-4.9); Potassium 4.3 mmol/L (3.5-5.1)
--- NOTE | 2024-05-25 07:34 | Hospitalist Progress Note ---
Date of Service May 25, 2024 Assessment & Plan (1) Acute on chronic heart failure with reduced ejection fraction (HFrEF, <= 40%): (2) Acute respiratory failure with hypoxia: (3) Uncontrolled diabetes mellitus with hyperglycemia: (4) Obstructive sleep apnea: (5) Non-sustained ventricular tachycardia: Plan 48 year old with HFrEF presents to the ER with hypoxia, cyanosis and shortness of breath with 1 week of symptoms #Acute respiratory failure with hypoxia - weaned off of biPAP to 10L NC, baseline on 5L - CXR (05/23/24): b/l lower lobe pna - CTA chest (05/23/24): no PE, + cardiomegaly with interstitial pulmonary edema, small right and trace left pleural effusions, extensive alveolar opacities within the lungs which may represent multifocal pneumonia or alveolar pulmonary edema, mildly enlarged lymph nodes (likely reactive) - WBC wnl to suggest pna, procal: 0.03 (05/23/24) - cont HF management #Acute on chronic heart failure with reduced ejection fraction (LVEF 15-20%) #NSVT - last ECHO (09/2023): LVEF 15-20% with severely dilated LV - Lasix 80 mg IV BID (overall looking good and per cards revert to PO on 05/26/24) - Continue his usual Entresto, metoprolol succinate (dose increased on 05/24 per cards) and spironolactone - Strict I's and O's - Daily weights - keep K > 4 / Mg > 2 - given severity of sxs and degree of HF, cardiology consulted, recs appreciated #T2DM HbA1C 7.6 in Feb, no need to repeat as within 3 months Insulin per last admission - Lantus 35 units BID Novolog: --Goal BSG Range: Low 110mg/dL, High 140 mg/dL --Correction Factor: 15mg/dL/unit --Carbohydrate ratio = 8 g/unit --BSGs ACHS if eating, q6h if npo #COPD No wheezing to suspect exacerbation, continue maintenance inhalers #MARIELENA CPAP HS VTE Prophylaxis - Lovenox 40mg SQ BID Disposition - d/c home pending clinical improvement Admission and Anticipated Discharge Date Admission Date: May 23, 2024 Subjective No acute events overnight Currently no new complaints Review of Systems Review of Systems: comprehensive ROS negative Physical Exam Physical Exam: Gen: NAD, in bed comfortable HEENT: NC/AT, anicteric, MMM Lungs: CTAB CVS: s1s2nl, RRR Abd: protuberant, nl bowel sounds, soft, NT : no otto Ext: no edema Neuro: awake and alert Psych: calm / cooperative Results & Data Results & Data Vital Signs (Past 12 Hours) Vital Signs Temp Pulse Pulse Resp BP Pulse Ox O2 Del Method 05/25/24 03:15 36.8 C 60 20 121/82 98 BiPAP 05/25/24 02:48 65 20 98 05/25/24 00:14 151/113 H 05/25/24 00:09 69 16 98 05/24/24 23:22 36.6 C 94 H 16 100 BiPAP 05/24/24 23:00 81 05/24/24 19:46 36.9 C 88 16 133/92 93 High Flow Nasal Cannula 05/24/24 19:45 Nasal Cannula O2 Flow Rate FiO2 05/25/24 03:15 05/25/24 02:48 60 05/25/24 00:14 05/25/24 00:09 60 05/24/24 23:22 05/24/24 23:00 05/24/24 19:46 10 05/24/24 19:45 5 PG Care Time/CCT Total # of Minutes Spent Total Time Spent with Patient: Total time spent is greater than 50% in coordination of care (as documented) at patient's floor/unit and/or counseling patient: Coding Level of Care Code 27334 SUB INP/OBS CARE 2/35MIN Diagnoses Acute on chronic heart failure with reduced ejection fraction (HFrEF, <= 40%) I50.23 Acute respiratory failure with hypoxia J96.01 Uncontrolled diabetes mellitus with hyperglycemia E11.65 Obstructive sleep apnea G47.33 Non-sustained ventricular tachycardia I47.29
--- NOTE | 2024-05-25 09:21 | Electrocardiogram Report ---
Test Reason : Blood Pressure : */* mmHG Vent. Rate : 104 BPM Atrial Rate : 104 BPM P-R Int : 170 ms QRS Dur : 110 ms QT Int : 374 ms P-R-T Axes : 26 -54 95 degrees QTcB Int : 491 ms Sinus tachycardia Possible Left atrial enlargement Left axis deviation Minimal voltage criteria for LVH, may be normal variant Septal infarct , age undetermined T wave abnormality, consider lateral ischemia Abnormal ECG When compared with ECG of 23-May-2024 15:59, (unconfirmed) No significant change was found Confirmed by Rodney Cary ([id number]) on 05/25/2024 9:20:57 AM Referred By: REFERRED SELF Confirmed By: Rodney Cary
--- NOTE | 2024-05-25 09:33 | Cardiology Progress Note ---
Date of Service May 25, 2024 Assessment & Plan (1) Acute on chronic heart failure with reduced ejection fraction (HFrEF, <= 40%): (2) Non-sustained ventricular tachycardia: (3) NICM (nonischemic cardiomyopathy): (4) AICD (automatic cardioverter/defibrillator) present: (5) Pneumonia: Plan Complex 48-year-old male with known nonischemic cardiomyopathy with severe LV dysfunction class III-IV chronic congestive heart failure. Underlying issues include morbid obesity with severe obstructive sleep apnea and chronic hypoxia. Currently not using CPAP Patient presents with decompensated respiratory failure with pulmonary edema on chest x-ray and possible superimposed pneumonia. Increasing oxygen demands at home. Tachycardic on presentation with concerns regarding possible defibrillator activation not founded on interrogation. Recommendations: Continue IV diuretics Will increase metoprolol succinate to 125 mg twice per day, Continue Entresto, spironolactone Mandatory that he resume CPAP Normally functioning pacer defibrillator in place. Will not initiate antiarrhythmic therapy at this time 05/25/2024 1. Decompensated respiratory failure with pulmonary edema, hypoventilation 2. Nonischemic cardiomyopathy with severe LV dysfunction, class III-IV chronic congestive heart failure 3. Morbid obesity with severe obstructive sleep apnea/hypoventilation Clinically improved on exam heart rate slower after upward titration of beta- mansoor, treatment of underlying volume overload. Would continue IV diuretics additional day. Transition to oral diuretic tomorrow. Management of hypoventilation necessary. Patient on appropriate medical therapies Admission and Anticipated Discharge Date Admission Date: May 23, 2024 Subjective Patient seen and personally examined, chart, medications, telemetry reviewed. No arrhythmias on telemetry Patient notes had to be aroused during the night due to hypoventilation. No acute complaints this morning Brisk diuresis yesterday Review of Systems Review of Systems: All systems reviewed & are unremarkable except as noted in Subjective Physical Exam Constitutional: + morbidly obese; no acute distress Eyes: PERRL, conjunctivae normal, anicteric sclerae ENMT: external ear and nose normal, oropharynx normal Neck: trachea midline, no thyromegaly + thick neck Respiratory: Auscultation: + diminished lung sounds Cardiovascular: Rate/Rhythm: regular rate and regular rhythm Extremities: + edema (Ruborous stasis changes both lower extremities) Chest (Breasts): Chest: + pacemaker (AICD left shoulder without irritation or tenderness) Gastrointestinal (Abdomen): Percussion/Palpation: abdomen soft; abdomen nontender Results & Data Vital Signs (Past 12 Hours) Vital Signs Temp Pulse Pulse Resp BP Pulse Ox O2 Del Method 05/25/24 08:02 36.7 C 60 20 113/83 97 BiPAP 05/25/24 03:15 36.8 C 60 20 121/82 98 BiPAP 05/25/24 02:48 65 20 98 05/25/24 00:14 151/113 H 05/25/24 00:09 69 16 98 05/24/24 23:22 36.6 C 94 H 16 100 BiPAP 05/24/24 23:00 81 FiO2 05/25/24 08:02 60 05/25/24 03:15 05/25/24 02:48 60 05/25/24 00:14 05/25/24 00:09 60 05/24/24 23:22 05/24/24 23:00 Laboratory Results Laboratory Results - last 24 hr 05/24/24 05/24/24 05/24/24 11:25 16:06 20:24 WBC RBC Hgb Hct MCV MCH MCHC RDW Std Deviation RDW Coeff of Zoltan Plt Count MPV Sodium Potassium Chloride Carbon Dioxide Anion Gap BUN Creatinine Est Cr Clr Drug Dosing eGFR BUN/Creatinine Ratio Glucose POC Glucose 276 H 171 H 125 H Calcium Phosphorus Magnesium 05/25/24 05/25/24 05:45 07:21 WBC 14.10 H RBC 5.25 Hgb 15.3 Hct 46.2 MCV 88.0 MCH 29.1 MCHC 33.1 RDW Std Deviation 48.6 H RDW Coeff of Zoltan 15.0 H Plt Count 161 MPV 10.6 Sodium 138 Potassium 4.3 Chloride 101 Carbon Dioxide 33 H Anion Gap 4 BUN 26 H Creatinine 0.96 Est Cr Clr Drug Dosing 136.3 eGFR 98.11 BUN/Creatinine Ratio 27.1 H Glucose 175 H POC Glucose 152 H Calcium 8.8 Phosphorus 3.9 Magnesium 2.0
[2024-05-26 05:50] LABS: Basophils # (auto) 0.04 K/uL (0.00-0.20); Basophils % (auto) 0.3 %; Eosinophils # (auto) 0.13 K/uL (0.00-0.50); Eosinophils % (auto) 1.1 %; Hematocrit (blood only) 48.8 % (42.0-52.0); Hemoglobin 15.9 g/dl (14.0-18.0); Immature Granulocytes # (auto) 0.06 K/uL (0.01-0.20); Immature Granulocytes % (auto) 0.5 %; Lymphocytes # (auto) 3.91 K/uL (1.20-3.40); Lymphocytes % (auto) 33.2 %; Mean Corpuscular Hgb Conc 32.6 g/dL (32.0-36.0); Mean Corpuscular Volume 88.9 fL (80.0-100.0); Mean Platelet Volume 10.4 fL (9.4-12.4); Monocytes # (auto) 1.02 K/uL (0.11-0.59); Monocytes % (auto) 8.7 %; Neutrophils # (auto) 6.63 K/uL (1.40-6.50); Neutrophils % (auto) 56.2 %; Platelet Count 185 K/uL (130-400); RDW Standard Deviation 48.8 fL (36.4-46.3); Red Blood Count 5.49 M/uL (4.70-6.10); White Blood Count 11.79 K/ul (4.8-10.8)
[2024-05-26 06:03] LABS: Calcium 8.6 mg/dl (8.6-10.3); Creatinine Clr Calc Pharmacy 108.1 ml/min; Magnesium 1.9 mg/dl (1.7-2.4)
[2024-05-26 08:19] VITALS: RESP 20
--- NOTE | 2024-05-26 08:41 | XRay Report ---
XR chest 1V portable CLINICAL HISTORY: CHF COMPARISON STUDY: 05/23/2024 FINDINGS: Stable pacemaker. Stable cardiomegaly without pulmonary vascular congestion. There is mild stranding opacity in the lung bases, improved. No pleural effusion or pneumothorax. IMPRESSION: Mild stranding opacity in the lung bases, improved. ACT 112: Negative or not required by law. Electronically signed by: Yuri Dillon M.D. 05/26/2024 8:39 AM
--- NOTE | 2024-05-26 10:39 | Cardiology Progress Note ---
Date of Service May 26, 2024 Assessment & Plan (1) Acute on chronic heart failure with reduced ejection fraction (HFrEF, <= 40%): (2) Non-sustained ventricular tachycardia: (3) NICM (nonischemic cardiomyopathy): (4) AICD (automatic cardioverter/defibrillator) present: (5) Pneumonia: Plan 05/25/24 Complex 48-year-old male with known nonischemic cardiomyopathy with severe LV dysfunction class III-IV chronic congestive heart failure. Underlying issues include morbid obesity with severe obstructive sleep apnea and chronic hypoxia. Currently not using CPAP Patient presents with decompensated respiratory failure with pulmonary edema on chest x-ray and possible superimposed pneumonia. Increasing oxygen demands at home. Tachycardic on presentation with concerns regarding possible defibrillator activation not founded on interrogation. Recommendations: Continue IV diuretics Will increase metoprolol succinate to 125 mg twice per day, Continue Entresto, spironolactone Mandatory that he resume CPAP Normally functioning pacer defibrillator in place. Will not initiate antiarrhythmic therapy at this time 1. Decompensated respiratory failure with pulmonary edema, hypoventilation 2. Nonischemic cardiomyopathy with severe LV dysfunction, class III-IV chronic congestive heart failure 3. Morbid obesity with severe obstructive sleep apnea/hypoventilation Clinically improved on exam heart rate slower after upward titration of beta- mansoor, treatment of underlying volume overload. Would continue IV diuretics additional day. Transition to oral diuretic tomorrow. Management of hypoventilation necessary. Patient on appropriate medical therapies 05/26/24: Interval improvement in his volume status after several days of IV diuretics. Weight down approx 9 kg since admission. weight this morning at 308 lbs/140 kg. Negative 8.5 L since admission Oxygen saturations improved and at baseline 5 L via NC Reports he does not have CPAP/BIPAP at home. Needs arranged/ordered. Would discharge on torsemide 100 mg BID, spironolactone 50 mg BID for diuretic therapy. Metoprolol increased to 125 mg BID Continue Entresto 103/97 mg BID, isosorbide 60 mg daily, atorvastatin 10 mg daily and ASA. His device is monitored closely by [facility]. Acceptable/stable for discharge today or when BIPAP can be provided at home. Long discussion about compliance with medications, appointments, and BIPAP when he returns home. He is on appropriate guide line directed medical therapies. Will arrange outpatient cardio CHF f/u Case discussed with Dr. Benoit I spent a total of 35 minutes on the date of service in preparation, delivery, and documentation of the care provided to this patient, excluding any time spent in the performance of separately billed services. Shyanne Stern PA-C Department of Cardiology, [facility] This chart was completed in part utilizing Speech Voice Recognition Software. Grammatical errors, random word insertions, pronoun errors, and incomplete sentences are an occasional consequence of this system due to software limitations, ambient noise, and hardware issues. Any formal questions or concerns about the content, text, or information contained within the body of this dictation should be directly addressed to the provider for clarification. Admission and Anticipated Discharge Date Admission Date: May 23, 2024 Supervising Physician Co-Signing Physician Notes Wounds, do not see attending attestation: Case reviewed with the advanced practitioner. I have personally performed a history and physical examination on the patient. I have reviewed the advanced practitioner's documentation on the date of service referenced in note, and I agree with, and take responsibility for the plan of care. Vick Benoit, DO Subjective Patient resting in bed. Anxious and hoping for discharge today. Reports his breathing is "good". Back to baseline 5 L oxygen via NC. reports he does not have CPAP/BIPAP at home as his "broke" and he is waiting for a new machine. No chest pain. Edema improved. Weight down from admisison Review of Systems Review of Systems: All systems reviewed & are unremarkable except as noted in HPI & below Physical Exam Constitutional: + morbidly obese; no acute distress Eyes: PERRL, conjunctivae normal, anicteric sclerae Neck: + thick neck Respiratory: Auscultation: + diminished lung sounds; no crackles and no rales Cardiovascular: Rate/Rhythm: regular rate and regular rhythm Extremities: + edema (Ruborous stasis changes both lower extremities) Chest (Breasts): Chest: + pacemaker (AICD left shoulder without irritation or tenderness) Gastrointestinal (Abdomen): Percussion/Palpation: abdomen soft; abdomen nontender Results & Data Vital Signs (Past 12 Hours) Vital Signs Temp Pulse Pulse Resp BP Pulse Ox O2 Del Method 05/26/24 09:00 64 05/26/24 08:18 36.5 C 70 20 110/73 98 BiPAP 05/26/24 07:37 69 16 97 05/26/24 02:58 36.8 C 59 L 18 97/69 L 97 BiPAP 05/26/24 02:29 82 14 98 05/25/24 22:58 36.8 C 80 20 113/66 91 Nasal Cannula O2 Flow Rate FiO2 05/26/24 09:00 05/26/24 08:18 05/26/24 07:37 60 05/26/24 02:58 05/26/24 02:29 60 05/25/24 22:58 5 Laboratory Results CBC 05/26/24 Range/Units 05:29 WBC 11.79 H (4.8-10.8) K/ul RBC 5.49 (4.70-6.10) M/uL Hgb 15.9 (14.0-18.0) g/dl Hct 48.8 (42.0-52.0) % Plt Count 185 (130-400) K/uL Neut # (Auto) 6.63 H (1.40-6.50) K/uL Lymph # (Auto) 3.91 H (1.20-3.40) K/uL [place] # (Auto) 1.02 H (0.11-0.59) K/uL Eos # (Auto) 0.13 (0.00-0.50) K/uL Baso # (Auto) 0.04 (0.00-0.20) K/uL Comprehensive Metabolic Panel 05/26/24 Range/Units 05:29 Sodium 139 (136-145) mmol/L Potassium 4.0 (3.5-5.1) mmol/L Chloride 100 (98-107) mmol/L Carbon Dioxide 35 H (21-32) mmol/L BUN 29 H (6-23) mg/dl Creatinine 1.21 (0.6-1.4) mg/dl Glucose 108 H (70-99(Fasting)) mg/dl Calcium 8.6 (8.6-10.3) mg/dl Intake and Output 05/25/24 05/26/24 05/26/24 22:59 06:59 14:59 Output Total 1650 / 1651 1650 Balance -165 / -931 - Output: Urine 1650 / 1650 # Bowel Movements Other: # Unmeasured Voids 1 Weight 140.3 kg Weight Measurement Method Standing Scale Diagnostic Findings Telemetry reviewed: NSR with intermittent bradycardia and intermittent ventricular pacing. Pacer lower limit set at 40 bmp (single lead ICD only) chest xray today: IMPRESSION: Mild stranding opacity in the lung bases, improved. Medications Administered Current Inpatient Medications Acetaminophen (Acetaminophen 325 Mg Tab) 650 mg PO Q4H PRN PRN Reason: Pain or Fever Stop: 06/22/24 18:09 Aspirin (Aspirin 81 Mg Ectab) 81 mg PO QAM [facility] Stop: 06/23/24 08:59 Last Admin: 05/26/24 09:13 Dose: 81 mg Atorvastatin Calcium (Atorvastatin 10 Mg Tab) 10 mg PO DAILY [facility] Stop: 06/23/24 08:59 Last Admin: 05/26/24 09:15 Dose: 10 mg Dextrose (Dextrose 50% 50 Ml Syringe) 25 - 50 ml IV UD PRN; Protocol PRN Reason: Hypoglycemia Protocol Stop: 06/22/24 18:18 Enoxaparin Sodium (Enoxaparin Inj 40 Mg/0.4 Ml Syr) 40 mg SQ BID [facility] Stop: 06/22/24 20:59 Last Admin: 05/26/24 09:13 Dose: Not Given Fluticasone/Vilanterol (Fluticasone/Vilanterol 100/25mcg 14 Puffs/Inhaler) 1 puffs INH DAILY [facility]; Protocol Stop: 06/22/24 20:59 Last Admin: 05/26/24 09:13 Dose: 1 puffs Furosemide (Furosemide 40 Mg/4 Ml Vial) 80 mg IV BID17 [facility] Stop: 06/23/24 08:59 Last Admin: 05/26/24 09:21 Dose: 80 mg Glucagon (Glucagon For Inj 1 Mg Vial) 1 mg SQ UD PRN; Protocol PRN Reason: Hypoglycemia Protocol Stop: 06/22/24 18:18 Glucose (Glucose 40% Gel 15 Gm Tube) 15 - 30 gm PO UD PRN; Protocol PRN Reason: Hypoglycemia Protocol Stop: 06/22/24 18:18 Glucose (Glucose 10 Tab/Tube) 4 - 8 tab PO UD PRN; Protocol PRN Reason: Hypoglycemia Protocol Stop: 06/22/24 18:18 Hydroxyzine HCl (Hydroxyzine Hcl 25 Mg Tab) 25 mg PO TID PRN PRN Reason: itching Stop: 06/22/24 16:18 Insulin Aspart (Insulin Aspart Per Unit Charge) 0 units SC ACHS [facility] Stop: 06/22/24 20:59 Last Admin: 05/26/24 09:12 Dose: 3 units Insulin Glargine (Lantus Per Unit Charge) 35 units SQ BID [facility] Stop: 06/22/24 20:59 Last Admin: 05/26/24 09:21 Dose: 35 units Isosorbide Mononitrate (Isosorbide [place] Extended Rel 60 Mg Tabcr) 60 mg PO DAILY [facility] Stop: 06/23/24 08:59 Last Admin: 05/26/24 09:14 Dose: 60 mg Metoprolol Succinate (Metoprolol Succ 25mg Ext Rel Tab) 125 mg PO BID [facility] Stop: 06/23/24 20:59 Last Admin: 05/26/24 09:14 Dose: 125 mg Miconazole Nitrate (Miconazole Nitrate Powder 85 Gm) 1 appln EXT PRN PRN PRN Reason: groin itch Stop: 06/23/24 00:21 Last Admin: 05/24/24 01:02 Dose: 1 appln Miscellaneous (Order Awaiting [facility]) 1 each N/A QS [facility] Stop: 06/23/24 00:00 Last Admin: 05/26/24 09:13 Dose: Not Given Miscellaneous (Remove Lidoderm Patch) 1 each N/A DAILY@2100 [facility] Stop: 06/22/24 20:59 Last Admin: 05/25/24 20:42 Dose: Not Given Miscellaneous (Carbohydrates For Hypoglycemia ) 15 - 30 gm PO UD PRN PRN Reason: Hypoglycemia Protocol Stop: 06/22/24 18:18 Ondansetron HCl (Ondansetron Inj 2 Mg/Ml 2 Ml Vial) 4 mg IV Q6H PRN PRN Reason: Nausea Stop: 06/22/24 18:09 Sacubitril/Valsartan (Valsartan/Sacubitril 103/97mg Tab) 1 tab PO BID [facility] Stop: 06/22/24 20:59 Last Admin: 05/26/24 09:13 Dose: 1 tab Spironolactone (Spironolactone 25 Mg Tab) 50 mg PO BID [facility] Stop: 06/22/24 20:59 Last Admin: 05/26/24 09:14 Dose: 50 mg Triamcinolone Acetonide (Triamcinolone Acet 0.025% Cr 15 Gm Tube) 1 appln TOP TID PRN PRN Reason: rash Stop: 06/22/24 16:18 Trolamine Salicylate (Trolamine Salicylate 10% Crm 255 Appln/85 Gm Tube) 1 appln EXT BID PRN PRN Reason: left sided neck pain Stop: 06/22/24 16:18
[2024-05-26 11:06] VITALS: BP 121/77; PULSE 75; TEMP 97.5; O2SAT 93
--- NOTE | 2024-05-26 11:22 | Electrocardiogram Report ---
Test Reason : Blood Pressure : */* mmHG Vent. Rate : 115 BPM Atrial Rate : 115 BPM P-R Int : 164 ms QRS Dur : 110 ms QT Int : 350 ms P-R-T Axes : 27 -40 94 degrees QTcB Int : 484 ms Sinus tachycardia Possible Left atrial enlargement Left axis deviation Incomplete left bundle block Minimal voltage criteria for LVH, may be normal variant T wave abnormality, consider lateral ischemia Abnormal ECG When compared with ECG of 23-May-2024 14:15, No significant change was found Confirmed by Bertrand Polanco [id number]) on 05/26/2024 11:21:40 AM Referred By: REFERRED SELF Confirmed By: Bertrand Polanco
--- NOTE | 2024-05-26 11:31 | Discharge Summary ---
Discharge Summary Date of Service May 26, 2024 Principal Dx & Hospital Course #1 = Principal Diagnosis (1) Acute on chronic heart failure with reduced ejection fraction (HFrEF, <= 40%): Actual ejection fraction is 15% based on most recent cardiac echo. Case discussed with cardiology. CHF is much improved after significant diuresis with parenteral Lasix. He is now back to his baseline. Chest x-ray done today, May 26, looks much better. (2) Acute respiratory failure with hypoxia: Acute on chronic respiratory failure with hypoxia present on admission. He is now back to his baseline oxygen usage. (3) Uncontrolled diabetes mellitus with hyperglycemia: Present on admission. Now improved. Glucose today, May 26, is 108. (4) Obstructive sleep apnea: The patient understands the need to use his CPAP as directed (5) Non-sustained ventricular tachycardia: Past history of NSVT. Controlled with medication. Telemetry Plan Home today, May 26 Admission HPI Per Admitting Provider Alok Huff is a 48 year old male with known chronic heart failure with reduced ejection fraction well known to the service with repeated exacerbation and problems with medication compliance who presents to the ER with shortness of breath. History is limited due to his current shortness of breath and need for BiPAP. He reports 1 week of shortness of breath with intermittent hemoptysis (he usually gets this with pulmonary edema). Reportedly cyanotic at home and hypoxic when picked up by EMS. He reports taking all his usual medications. No known increased salt in his diet. No fever or chills. Shortness of breath worse on lying flat. No known increased weight. Chest tightness similar to prior heart failure exacerbations. He also feels like his device may have shocked him. On ICD interrogation there were no shocks but he has had some episodes of non-sustained ventricular tachycardia < 30 seconds therefore he was not shocked out of this. Last echocardiogram in September 2023 with LVEF 15-20% with severely dilated left ventri shamar. Discharge Exam General-alert and oriented x3, no fever, no chills. Morbidly obese HEENT-head atraumatic and normocephalic, pupils equal and reactive to light, extraocular muscles intact Neck-no lymphadenopathy or thyromegaly, trachea midline Chest-diminished breath sounds bilaterally. Faint bibasilar inspiratory rales. No wheezing. No rhonchi. Cardiac-regular rate and rhythm, normal S1 and S2 Abdomen-normal bowel sounds, no hepatosplenomegaly Extremities-chronic appearing 1+ pitting edema bilateral lower extremities below the knees is much improved since admission Neuro-cranial nerves II through XII intact, motor and sensory function within normal limits, strength symmetrical, no focal deficits Psych-normal affect, normal mood Discharge Plan Discharge Items Patient Disposition: Home - Self-Care Reason For Visit: ACUTE HFREF Discharge Diagnosis: Acute on chronic systolic congestive heart failure, acute on chronic hypoxic respiratory failure Activity: Resume your previous activity Non-emergency contact: Primary Care Provider and Wine Sales Representative Call non-emergency contact if: you have any medication questions and your symptoms worsen Follow-up/Referrals: Gosia Martinez MD [Primary Care Provider] - 06/02/24 9:00 am (Hospital follow up on Sunday, June 02 at 9 am.) Diet: Regular and Heart Healthy Addtl Attending Provider Instructions: Metoprolol has been increased to 125 mg twice daily. Torsemide is 100 mg twice daily. Spironolactone is 50 mg twice daily. Continue Entresto, Imdur, atorv astatin, aspirin as before Pending Studies at Discharge: No Stand-Alone Forms: My [facility] Affairs, Smoking Cessation Medications and DC Order Prescriptions: New spironolactone 50 mg tablet 50 mg PO BID Qty: 60 0RF metoprolol succinate 25 mg tablet extended release 24 hr 25 mg PO BID Qty: 60 0RF Rx Instructions: Total dose is 125 mg twice daily Continued (DME) FreeStyle Karla 3 [place] Misc See Rx Instructions .Route Qty: 1 1RF Rx Instructions: blood sugar (DME) FreeStyle Karla 3 [place] Misc See Rx Instructions .ROUTE .MEDSUPPLY Qty: 1 0RF Rx Instructions: use with karla 3 + sensor tirzepatide 7.5 mg/0.5 mL pen injector 7.5 mg subcut Q7D 30 Days Qty: 2 3RF Rx Instructions: MONDAYS (DME) pen needle, diabetic [Comfort EZ Pen Jena] 31 gauge x 5/16" needle See Rx Instructions .Route Qty: 100 3RF Rx Instructions: use when administering insuling daily budesonide 0.25 mg/2 mL suspension for nebulization 0.25 mg inhalation DAILY PRN (Reason: Shortness Of Breath) budesonide-formoterol [Symbicort] 160-4.5 mcg/actuation HFA aerosol inhaler 2 inh inhalation BID Qty: 3 3RF Rx Instructions: 2 puffs twice per day. Rinse mouth after each use (DME) OneTouch Verio test strips Strip See Rx Instructions miscellaneous .MEDSUPPLY Qty: 100 5RF Rx Instructions: check 3x a day (DME) lancets [OneTouch Delica Plus Lancet] 30 gauge misc See Rx Instructions .ROUTE .MEDSUPPLY Qty: 100 5RF Rx Instructions: use new lancet 3x a day (DME) blood-glucose meter [OneTouch Verio Flex meter] Misc See Rx Instructions .ROUTE .MEDSUPPLY Qty: 1 0RF Rx Instructions: As directed hydroxyzine HCl 25 mg tablet 25 mg PO TID PRN (Reason: itching) Qty: 90 1RF (DME) FreeStyle Karla 3 Plus Sensor Device See Rx Instructions .ROUTE .MEDSUPPLY Qty: 2 11RF Rx Instructions: change sensor every 15 days atorvastatin 10 mg tablet 10 mg PO DAILY Qty: 90 3RF nystatin 100,000 unit/gram powder 1 applic topical BID PRN (Reason: Skin Irritation) Qty: 60 0RF insulin glargine 100 unit/mL (3 mL) insulin pen 50 unit subcut BID triamcinolone acetonide 0.025 % cream 1 applic topical TID PRN (Reason: rash) Qty: 454 0RF isosorbide mononitrate 60 mg tablet extended release 24 hr 60 mg PO DAILY Qty: 90 1RF metoprolol succinate 100 mg tablet extended release 24 hr 100 mg PO BID Qty: 180 1RF dapagliflozin propanediol [Farxiga] 10 mg tablet 10 mg PO DAILY Qty: 90 1RF Entresto 97-103 mg tablet 1 tab PO BID Qty: 180 1RF torsemide 100 mg tablet 100 mg PO BID Qty: 180 1RF Rx Instructions: 100 mg orally twice a day; nitroglycerin [Nitrostat] 0.4 mg tablet, sublingual 0.4 mg sublingual UD PRN (Reason: Chest Pain) aspirin [Neisha Low Dose Aspirin] 81 mg tablet,delayed release (DR/EC) 81 mg PO QAM albuterol sulfate 2.5 mg /3 mL (0.083 %) solution for nebulization 2.5 mg inhalation Q6H PRN (Reason: Shortness Of Breath Or Wheezing) Rx Instructions: Use every 6 hours as needed with nebulizer albuterol sulfate 90 mcg/actuation HFA aerosol inhaler 1 inh inhalation QID PRN (Reason: Shortness Of Breath Or Wheezing) (DME) Oxygen Home Liters Per Minute See Rx Instructions .Route Qty: 5 0RF Rx Instructions: As directed lidocaine 5 % adhesive patch,medicated 1 patch topical DAILY PRN (Reason: Pain) trolamine salicylate [Myoflex] 10 % Cream 1 applic EXT BID PRN (Reason: left sided neck pain) Qty: 35.4 0RF Rx Instructions: Please give tube from hospital Discontinued spironolactone 100 mg tablet 100 mg PO BID Qty: 180 1RF Discharge Orders: Discharge Order- CHF (Routine); Ordered 05/26/24 Ordered By: Wilfredo Pascal Admission Data Admit Date/Time: 05/23/24 16:10 Attending Provider: Wilfredo Pascal Admit Provider: Migue Laguna Primary Care Provider: Gosia Martinez Other Providers: Migue Laguna; Marcus Ca Hospital Stay Data Consultations 05/23/24 15:31 ED Decision to Admit Stat 05/24/24 07:51 Consult Cardiology Routine Diagnostic Imagining Performed 05/23/24 14:10 CT angio chest PE protocol Stat Pending Results Patient Have Any Pending Studies at Discharge: No Discharge Instructions Given to Patient (Per Discharging Provider) Metoprolol has been increased to 125 mg twice daily. Torsemide is 100 mg twice daily. Spironolactone is 50 mg twice daily. Continue Entresto, Imdur, atorvastatin, aspirin as before Total Time Total Time Spent Total Time Spent (In Minutes): 45 minutes Coding Level of Care Code 61585 INP/OBS DISCH >30 MIN Diagnoses Acute on chronic heart failure with reduced ejection fraction (HFrEF, <= 40%) I50.23 Acute respiratory failure with hypoxia J96.01 Uncontrolled diabetes mellitus with hyperglycemia E11.65 Obstructive sleep apnea G47.33 Non-sustained ventricular tachycardia I47.29
== END 2024-05-26 12:31 | disposition home or self-care (01) | DRG 291 ==
LOC: ED 14:05 → SUATTDRO 16:10 → EDINP 16:10 → 2E 18:33

== ENCOUNTER 2024-06-02 00:56 | Observation (INO) ==
[2024-06-02 01:43] LABS: Base Excess VBG -3.1 mEq/L; HCO3 VBG 21 mmol/L; Oxygen Saturation VBG 87.8 %; PCO2 VBG 35 mmHg (38-50); PO2 VBG 57 mmHg; pH VBG 7.39 (7.36-7.41)
[2024-06-02 01:50] LABS: Basophils # (auto) 0.02 K/uL (0.00-0.20); Basophils % (auto) 0.3 %; Eosinophils # (auto) 0.18 K/uL (0.00-0.50); Eosinophils % (auto) 2.3 %; Hematocrit (blood only) 45.4 % (42.0-52.0); Hemoglobin 15.4 g/dl (14.0-18.0); Immature Granulocytes # (auto) 0.04 K/uL (0.01-0.20); Immature Granulocytes % (auto) 0.5 %; Lymphocytes % (auto) 31.6 %; Mean Corpuscular Hemoglobin 29.3 pg (25.0-34.0); Mean Corpuscular Hgb Conc 33.9 g/dL (32.0-36.0); Mean Corpuscular Volume 86.3 fL (80.0-100.0); Mean Platelet Volume 10.1 fL (9.4-12.4); Monocytes % (auto) 8.8 %; Neutrophils # (auto) 4.47 K/uL (1.40-6.50); Neutrophils % (auto) 56.5 %; Platelet Count 157 K/uL (130-400); RDW Coefficient of Variation 15.3 % (11.5-14.5); Red Blood Count 5.26 M/uL (4.70-6.10); White Blood Count 7.91 K/ul (4.8-10.8)
[2024-06-02 02:07] LABS: Albumin Globulin Ratio 1.1 (0.9-2); Albumin Level 3.7 gm/dl (3.4-5.0); BUN Creatinine Ratio 16.5 (10-20); Calcium 8.5 mg/dl (8.6-10.3); Creatinine Clr Calc Pharmacy 128.8 ml/min; Globulin 3.3 gm/dl (2.5-4.0); Magnesium 1.7 mg/dl (1.7-2.4); Potassium 3.8 mmol/L (3.5-5.1)
[2024-06-02 02:14] LABS: Troponin I High Sensitivity 23.9 pg/ml (0-20)
--- NOTE | 2024-06-02 02:18 | Emergency Department Note ---
Impression & Plan Dyspnea, Lightheadedness, Pulmonary edema, Non-sustained ventricular tachycardia ED Provider Note ED Provider Note NAME: HARDIK LOVE AGE:48 SEX: Male : 1975 ARRIVES VIA: Private INFORMANT: Patient ED PROVIDER(s): Poornima Angela DO CHIEF COMPLAINT: Shortness of breath, lightheadedness HPI: This is a 48-year-old male with significant prior cardiac history and chronic oxygen use who presents emergency department due to increased shortness of breath and lightheadedness when he was exiting the hospital after visiting a friend. Patient states he felt winded and lightheaded getting in and out of a vehicle and due to significant prior history came in for additional evaluation. Patient recently admitted 2 weeks ago. He states he is taking his medications as prescribed. He states he uses 5 L/min of oxygen daily. Patient also states he has not had his BiPAP recently as his machine was taken because it was broken and he is awaiting a new machine. He states and lieu of his BiPAP he has just been wearing oxygen at night. Patient denies chest pain or abdominal pain. He states he has noticed increased redness and rash to bilateral lower extremities which has been going on for many weeks. He states he was given a cream to put on but when he used it it gave him burning in the legs so he stopped. Patient admits to not having his oxygen with him when he came to the hospital today to visit his friend. He states he was without his usual oxygen for a few hours. PAST MEDICAL HISTORY:See Below PAST SURGICAL HISTORY:See Below FAMILY HISTORY:See Below SOCIAL HISTORY:See Below HOME MEDICATIONS:See Below ALLERGIES:See Below VITALS:See Below PHYSICAL EXAMINATION: GENERAL: alert, unwell appearing, well nourished, no distress, non-toxic, BMI 49 EYE EXAM: normal conjunctiva, PERRL and EOM's grossly intact OROPHARYNX: no exudate, no erythema, lips, buccal mucosa, and tongue normal and mucous membranes are moist NECK: supple, no nuchal rigidity, no adenopathy, non-tender LUNGS: Clear to auscultation. Normal chest wall mechanics, no w/r/r HEART: no murmurs, S1 normal and S2 normal, pacer/ICD present left anterior superior chest wall ABDOMEN: abdomen soft, non-tender, normo-active bowel sounds, no masses, no rebound or guarding. Appearance of mild erythema versus ecchymosis noted to lower abdominal wall BACK: Back is symmetrical on inspection and there is no deformity, no midline tenderness SKIN: no rashes, petechiae, orbruising; bilateral lower extremities with dermatitis, no vesicles, no bullae, no skin sloughing UPPER EXTREMITIES: upper extremities are grossly normal. FROM, nml pulses b/l. LOWER EXTREMITIES: Chronic appearing bilateral lower extremity edema. FROM, nml pulses b/l. NEURO EXAM: Normal sensorium, cranial nerves II-XII grossly intact, normal speech, no facial droop,nogross weakness of arms, no gross weakness of legs. Gross sensation intact. No ataxia. Vital Signs: reviewed and remarkable Differential Diagnosis: pneumonia, bronchitis, COPD/Asthma exacerbation, pneumothorax, pulmonary embolism, congestive heart failure, acute coronary syndrome, as well as others were considered MEDICAL DECISION MAKING: This is a 48-year-old male with significant prior cardiac history who presents emergency department complaining of increased shortness of breath and lightheadedness when departing the hospital today after visiting another patient and trying to get into a car. Patient admits to not wearing his oxygen for several hours when he came to the hospital for this visit. Patient does have a history of noncompliance. Patient was afebrile and hemodynamically stable on arrival. He was started back on his oxygen via nasal cannula at 5 L/min. Labs drawn and sent, IV established, EKG and chest x-ray performed at bedside and interpreted by me and patient monitored on telemetry. Patient was given his evening dose of torsemide due to the increased pulmonary edema noted on his chest x-ray and his significant prior history. BNP unfortunately elevated compared to prior, mild elevation of his troponin although I do not primarily suspect ACS. Patient had 1 episode of ventricular tachycardia lasting 7 beats and return to a normal sinus rhythm. No firing of his defibrillator during that time. Nasal swab added and sent and was negative for an acute viral illness. Patient's H&H otherwise stable. Blood pressure elevated here however improved compared to prior episodes. Given appearance of worsening pulmonary edema and significant prior history including a known ejection fraction of 15% and chronic CHF, case discussed with the hospitalist team for additional evaluation and management. Consultation(s): 0445: Discussed with Carlitos Peoples hospitalist team, for additional evaluation and management. ER Treatment Provided: See below 0427: Contacted by [facility] as patient noted to have a 7 beat run of V. tach. Diagnostics Interpreted By Me: -ECG: Sinus tachycardia 105, leftward axis, normal intervals, nonspecific ST/T wave changes; no significant change compared to 05/24/2024 -Cardiac Monitoring: An order was placed for continuous cardiac monitoring. The monitor shows a rate of 80 with normal sinus rhythm. -Laboratory studies: As stated above and show below. -Imaging studies: cxr: Cardiomegaly, increased bilateral pulmonary edema bilaterally compared to prior, no wide mediastinum, no pleural effusion, no focal consolidation Triage Nursing Note Reviewed Prior/Outside Records Reviewed -prior discharge summary from 1 week ago reviewed Past Med/Surg History Problem List (Updated 06/02/24 @ 06:05 by Shelton Comer PA-C) Venous stasis dermatitis Non-sustained ventricular tachycardia (Acute) Pulmonary edema (Acute) Lightheadedness (Acute) Dyspnea (Acute) Chronic respiratory failure with hypoxia Acute on chronic heart failure with reduced ejection fraction (HFrEF, <= 40%) Type 2 diabetes mellitus with microalbuminuria Periapical abscess Pulmonary edema (Acute) Hypomagnesemia (Acute) Type 2 diabetes mellitus with peripheral neuropathy Type 2 diabetes mellitus with obesity Diabetic peripheral neuropathy Non-proliferative diabetic retinopathy, both eyes Uncontrolled diabetes mellitus with hyperglycemia Chronic respiratory failure Normocytic anemia Hypertension (Chronic) Poor intravenous access Morbid obesity with BMI of 50.0-59.9, adult Chronic anticoagulation Diabetes mellitus type II, uncontrolled (Chronic) Urinary bladder incontinence Hx of local infection of skin and subcutaneous tissue Ambulatory dysfunction (Chronic) Recurrent infection of skin Pulmonary nodule V tach (Acute) HFrEF (heart failure with reduced ejection fraction) Hemoptysis (Acute) Vitamin D deficiency Medical History Non-sustained ventricular tachycardia Obstructive sleep apnea NICM (nonischemic cardiomyopathy) Pt admitted for elective ICD. Underwent procedure without any complications monitored over night and discharged home. Combined systolic and diastolic heart failure Nonischemic cardiomyopathy, unclear etiology. Difficult to manage. Integrated into heart failure clinic. Frequent admissions for heart failure exacerbations. Echo (05/31) EF=25-30% with mod to severe global hypokinesis, basal kelsi-septal akinetic wall, LVH, RVSP elevated at 30-40mmHg, and mod dilated ascending aorta. Managed medically with ASA + BB + ARB/Neprilysin inhibitor (Entresto) + high dose furosemide (160mg BID) + metolazone (3x weekly). Considering ICD given EF. COPD (chronic obstructive pulmonary disease) Hypomagnesemia Medical non-compliance Intellectual disability Chronic dental pain Small bowel obstruction Housing instability, currently housed, at risk for homelessness Hearing loss of both ears Nonproliferative retinopathy due to secondary diabetes Dilatation of thoracic aorta Iliac aneurysm Vitamin D insufficiency Previously deficient, taking Vit D supplementation Umbilical hernia Lung nodule Fatty liver Surgical History AICD (automatic cardioverter/defibrillator) present H/O oral surgery History of carpal tunnel surgery S/P tonsillectomy History of cholecystectomy Family History Father , age 57 of an DC. Heart disease Myocardial infarction Mother , age 67 of a ruptured neck vessel Sudden Other Depression Lung disease No pertinent family history Denies family history of Ovarian cancer Prostate cancer Breast cancer Colorectal cancer Social History Smoking Status: Never smoker Tobacco Type: Cigarettes Age Started Using Tobacco: 14; Age Quit Using Tobacco: 18; packs per day: 1; Cigarettes Per Day: 2 PPD; Second Hand Exposure: No; Do You Dip or Chew Tobacco: No; Hx Alcohol Use: No Hx Substance Use: No Preferred Language: Chadian Communication Ability: Effective Visual Impairment: No Limitations Hearing Ability: Normal Disability Examiner Required: No Beliefs That Will Affect Care: None marital status: Current Living Situation: Family Current Living Situation Comment: Lives at home with current occupational status: unemployed How many Children do You have: 0 Feels Safe at Home: Yes Childhood Exposure to Second-Hand Smoke: Yes Dental Care, Regularly: Yes Physical Activity Frequency: Does not Exercise Seatbelt Use: never Sunscreen Use: No Assistive Devices: Cane, CPAP, Scooter/Electric Scooter and Walker Allergies Allergies Allergy/AdvReac Type Severity Reaction Status Date / Time albuterol Allergy Severe proair Verified 06/02/24 01:54 "trouble taking breaths" ceftriaxone Allergy Severe SHORTNESS Verified 06/02/24 01:54 OF BREATH lidocaine Allergy Severe SHORTNESS Verified 06/02/24 01:54 OF BREATH, diaphoretic, hives mushroom Allergy Severe Anaphylaxis Verified 06/02/24 01:54 procaine Allergy Severe SHORTNESS Verified 06/02/24 01:54 OF BREATH, diaphoretic, hives amoxicillin Allergy Intermediate HIVES/FACIAL Verified 06/02/24 01:54 SWELLING clavulanic acid Allergy Intermediate HIVES/FACIAL Verified 06/02/24 01:54 SWELLING lisinopril Allergy Intermediate HIVES Verified 06/02/24 01:54 shellfish derived Allergy Unknown Unknown Verified 06/02/24 01:54 acetaminophen AdvReac Mild NAUSEA Verified 06/02/24 01:54 Fish Containing Products AdvReac Unknown Unknown Verified 06/02/24 01:54 Home Meds Home Medications Medication Instructions Recorded Confirmed nitroglycerin 0.4 mg sublingual 0.4 mg sublingual UD PRN Chest Pain 04/24/19 06/02/24 tablet (Nitrostat) aspirin 81 mg tablet,delayed 81 mg PO QAM 06/16/21 06/02/24 release (Neisha Low Dose Aspirin) albuterol sulfate 2.5 mg/3 mL 2.5 mg inhalation Q6H PRN 12/02/21 06/02/24 (0.083 %) solution for nebulization Shortness Of Breath Or Wheezing budesonide 0.25 mg/2 mL suspension 0.25 mg inhalation DAILY PRN 09/15/22 06/02/24 for nebulization Shortness Of Breath albuterol sulfate 90 mcg/actuation 1 inh inhalation QID PRN Shortness 10/12/23 06/02/24 aerosol inhaler Of Breath Or Wheezing lidocaine 5 % topical patch 1 patch topical DAILY PRN Pain 11/03/23 06/02/24 insulin glargine 100 unit/mL (3 50 unit subcut BID 04/28/24 06/02/24 mL) subcutaneous pen Previous Rx's Medication Instructions Recorded blood-glucose meter (Perfect AudienceTouch #1 ea 10/12/22 Verio Flex Meter) lancets 30 gauge (OneTouch Delica #100 ea 10/12/22 Plus Lancet) Symbicort 160 mcg-4.5 2 inh inhalation BID #3 Inhalers 11/14/22 mcg/actuation HFA aerosol inhaler (budesonide-formoterol) blood sugar diagnostic (OneTouch #100 ea 01/17/23 Verio test strips) pen needle, diabetic 31 gauge x #100 ea 02/16/2306/27" (Comfort EZ Pen [place]) hydroxyzine HCl 25 mg tablet 25 mg PO TID PRN itching #90 tabs 05/31/23 trolamine salicylate 10 % topical 1 applic EXT BID PRN left sided 11/06/23 cream (Myoflex) neck pain #35.4 grams blood-glucose sensor (FreeStyle #2 ea 12/13/23 Karla 3 Plus Sensor device) blood-glucose,reports developer,cont #1 ea 01/14/24 (FreeStyle Karla 3 [place]) blood-glucose,reports developer,cont #1 ea 01/14/24 (FreeStyle Karla 3 [place]) atorvastatin 10 mg tablet 10 mg PO DAILY #90 tabs 02/04/24 Farxiga 10 mg tablet 10 mg PO DAILY #90 tabs 04/28/24 (dapagliflozin propanediol) isosorbide mononitrate 60 mg 60 mg PO DAILY #90 tabs 04/28/24 tablet,extended release 24 hr metoprolol succinate 100 mg 100 mg PO BID #180 tabs 04/28/24 tablet,extended release 24 hr sacubitril 97 mg-valsartan 103 mg 1 tab PO BID #180 tabs 04/28/24 tablet (Entresto) torsemide 100 mg tablet 100 mg PO BID #180 tabs 04/28/24 triamcinolone acetonide 0.025 % 1 applic topical TID PRN rash #454 04/28/24 topical cream grams nystatin 100,000 unit/gram topical 1 applic topical BID PRN Skin 05/09/24 powder Irritation #60 grams tirzepatide 7.5 mg/0.5 mL 7.5 mg (0.5 mL) subcut Q7D 30 days 05/09/24 subcutaneous pen injector #2 mL metoprolol succinate 25 mg 25 mg PO BID #60 tabs 05/26/24 tablet,extended release 24 hr spironolactone 50 mg tablet 50 mg PO BID #60 tabs 05/26/24 Oxygen Home #1 ea 05/29/24 Results & Data (ED) Vital Signs Vital Signs - 24 hr 06/02/24 00:56 06/02/24 01:05 06/02/24 01:09 Temperature 36.5 C Temperature Source Oral Pulse Rate 109 H 99 H Pulse Rate [Apical] Pulse Rate from SpO2 Sensor Respiratory Rate 24 Respiratory Effort / Characteristics Respiratory Depth Respiratory Pattern Blood Pressure 156/132 H Blood Pressure [Right Arm] Blood Pressure Mean 142 Blood Pressure Mean [Right Arm] Blood Pressure Position [Right Arm] Pulse Oximetry 94 Oxygen Delivery Method Room Air Oxygen Flow Rate Sepsis Recent Fever Within 48 Hours No Sepsis New/Unexplained Change in Mental Status N/A Sepsis Action Taken by Nursing No Action Required Oxygen Flow Rate - Titration 06/02/24 01:36 06/02/24 01:36 06/02/24 01:41 Temperature Temperature Source Pulse Rate Pulse Rate [Apical] 103 H Pulse Rate from SpO2 Sensor Respiratory Rate 22 Respiratory Effort / Characteristics Non-Labored Spontaneous Non-Labored Spontaneous Respiratory Depth Normal Normal Respiratory Pattern Regular Regular Blood Pressure Blood Pressure [Right Arm] 156/130 H Blood Pressure Mean Blood Pressure Mean [Right Arm] 138 Blood Pressure Position [Right Arm] Sitting Pulse Oximetry 98 97 Oxygen Delivery Method Nasal Cannula Nasal Cannula Nasal Cannula Oxygen Flow Rate 5 5 Sepsis Recent Fever Within 48 Hours Sepsis New/Unexplained Change in Mental Status Sepsis Action Taken by Nursing Oxygen Flow Rate - Titration 5 06/02/24 01:41 06/02/24 03:30 06/02/24 04:09 Temperature Temperature Source Pulse Rate 88 90 Pulse Rate [Apical] Pulse Rate from SpO2 Sensor 87 92 H Respiratory Rate 18 24 Respiratory Effort / Characteristics Respiratory Depth Respiratory Pattern Blood Pressure Blood Pressure [Right Arm] Blood Pressure Mean Blood Pressure Mean [Right Arm] Blood Pressure Position [Right Arm] Pulse Oximetry 97 97 95 Oxygen Delivery Method Nasal Cannula Nasal Cannula Nasal Cannula Oxygen Flow Rate 5 5 5 Sepsis Recent Fever Within 48 Hours Sepsis New/Unexplained Change in Mental Status Sepsis Action Taken by Nursing Oxygen Flow Rate - Titration 06/02/24 04:19 06/02/24 04:20 06/02/24 05:03 Temperature Temperature Source Pulse Rate 88 78 Pulse Rate [Apical] Pulse Rate from SpO2 Sensor 78 Respiratory Rate 17 Respiratory Effort / Characteristics Respiratory Depth Respiratory Pattern Blood Pressure 139/107 H Blood Pressure [Right Arm] Blood Pressure Mean 122 Blood Pressure Mean [Right Arm] Blood Pressure Position [Right Arm] Pulse Oximetry 98 Oxygen Delivery Method Nasal Cannula Oxygen Flow Rate 5 Sepsis Recent Fever Within 48 Hours Sepsis New/Unexplained Change in Mental Status Sepsis Action Taken by Nursing Oxygen Flow Rate - Titration Laboratory Data 06/02/24 01:32 06/02/24 01:32 Lab Results 06/02/24 06/02/24 06/02/24 Range/Units 01:32 03:23 04:13 WBC 7.91 (4.8-10.8) K/ul RBC 5.26 (4.70-6.10) M/uL Hgb 15.4 (14.0-18.0) g/dl Hct 45.4 (42.0-52.0) % MCV 86.3 (80.0-100.0) fL MCH 29.3 (25.0-34.0) pg MCHC 33.9 (32.0-36.0) g/dL RDW Std Deviation 48.0 H (36.4-46.3) fL RDW Coeff of Zoltan 15.3 H (11.5-14.5) % Plt Count 157 (130-400) K/uL MPV 10.1 (9.4-12.4) fL Immature Gran % (Auto) 0.5 % Neut % (Auto) 56.5 % Lymph % (Auto) 31.6 % Whitman % (Auto) 8.8 % Eos % (Auto) 2.3 % Baso % (Auto) 0.3 % Neut # (Auto) 4.47 (1.40-6.50) K/uL Lymph # (Auto) 2.50 (1.20-3.40) K/uL Whitman # (Auto) 0.70 H (0.11-0.59) K/uL Eos # (Auto) 0.18 (0.00-0.50) K/uL Baso # (Auto) 0.02 (0.00-0.20) K/uL Immature Gran # (Auto) 0.04 (0.01-0.20) K/uL PT 11.1 (9.0-12.0) Seconds INR 1.0 (0.9-1.1) APTT 30 (21-31) Seconds PTT Ratio 1.1 VBG pH 7.39 (7.36-7.41) VBG pCO2 35 L (38-50) mmHg VBG pO2 57 mmHg VBG HCO3 21 mmol/L VBG O2 Saturation 87.8 % VBG Base Excess -3.1 mEq/L Sodium 138 (136-145) mmol/L Potassium 3.8 (3.5-5.1) mmol/L Chloride 109 H (98-107) mmol/L Carbon Dioxide 23 (21-32) mmol/L Anion Gap 6 (3-11) BUN 17 (6-23) mg/dl Creatinine 1.03 (0.6-1.4) mg/dl Est Cr Clr Drug Dosing 128.8 ml/min eGFR 90.16 BUN/Creatinine Ratio 16.5 (10-20) Glucose 146 H (70-99(Fasting)) mg/dl Calcium 8.5 L (8.6-10.3) mg/dl Magnesium 1.7 (1.7-2.4) mg/dl Total Bilirubin 1.0 (0.2-1.0) mg/dl AST 20 (13-39) U/L ALT 15 (7-52) U/L Alkaline Phosphatase 76 (34-104) U/L Troponin I High Sens 23.9 H 21.0 H (0-20) pg/ml B-Natriuretic Peptide 872 H (0-100) pg/ml Total Protein 7.0 (6.0-8.3) gm/dl Albumin 3.7 (3.4-5.0) gm/dl Globulin 3.3 (2.5-4.0) gm/dl Albumin/Globulin Ratio 1.1 (0.9-2) Urine Color Urine Appearance (Clear) Urine pH (4.5-7.5) Ur Specific [place] (1.000-1.030) Urine Protein (Negative) Urine Glucose (UA) (Negative) Urine Ketones (Negative) Urine Blood (Negative) Urine Nitrite (Negative) Urine Bilirubin (Negative) Urine Urobilinogen (Negative) Ur Leukocyte Esterase (Negative) Urine WBC (Auto) (0-5) /hpf Urine RBC (Auto) (0-2) /hpf U Hyaline Cast (Auto) (0-2) /lpf U Epithel Cells (Auto) (0-2) /hpf Urine Bacteria (Auto) (None Seen) Adenovirus (PCR) Not Detected (NotDetected) B. pertussis DNA (PCR) Not Detected (NotDetected) B.parapertussis DNA PCR Not Detected (NotDetected) C. pneumoniae DNA (PCR) Not Detected (NotDetected) Coronavirus OC43 (PCR) Not Detected (NotDetected) Coronavirus HKU1 (PCR) Not Detected (NotDetected) Coronavirus 229E (PCR) Not Detected (NotDetected) SARS-CoV-2 (PCR) Not Detected (NotDetected) Coronavirus NL63 (PCR) Not Detected (NotDetected) Human Metapneumovir PCR Not Detected (NotDetected) Influenza Type A (PCR) Not Detected (NotDetected) Influenza Type B (PCR) Not Detected (NotDetected) M. pneumoniae (PCR) Not Detected (NotDetected) Parainfluenza 1 (PCR) Not Detected (NotDetected) Parainfluenza 2 (PCR) Not Detected (NotDetected) Parainfluenza 3 (PCR) Not Detected (NotDetected) Parainfluenza 4 (PCR) Not Detected (NotDetected) RSV (PCR) Not Detected (NotDetected) Entero/Rhino (PCR) Not Detected (NotDetected) 06/02/24 Range/Units 05:45 WBC (4.8-10.8) K/ul RBC (4.70-6.10) M/uL Hgb (14.0-18.0) g/dl Hct (42.0-52.0) % MCV (80.0-100.0) fL MCH (25.0-34.0) pg MCHC (32.0-36.0) g/dL RDW Std Deviation (36.4-46.3) fL RDW Coeff of Zoltan (11.5-14.5) % Plt Count (130-400) K/uL MPV (9.4-12.4) fL Immature Gran % (Auto) % Neut % (Auto) % Lymph % (Auto) % Whitman % (Auto) % Eos % (Auto) % Baso % (Auto) % Neut # (Auto) (1.40-6.50) K/uL Lymph # (Auto) (1.20-3.40) K/uL Whitman # (Auto) (0.11-0.59) K/uL Eos # (Auto) (0.00-0.50) K/uL Baso # (Auto) (0.00-0.20) K/uL Immature Gran # (Auto) (0.01-0.20) K/uL PT (9.0-12.0) Seconds INR (0.9-1.1) APTT (21-31) Seconds PTT Ratio VBG pH (7.36-7.41) VBG pCO2 (38-50) mmHg VBG pO2 mmHg VBG HCO3 mmol/L VBG O2 Saturation % VBG Base Excess mEq/L Sodium (136-145) mmol/L Potassium (3.5-5.1) mmol/L Chloride (98-107) mmol/L Carbon Dioxide (21-32) mmol/L Anion Gap (3-11) BUN (6-23) mg/dl Creatinine (0.6-1.4) mg/dl Est Cr Clr Drug Dosing ml/min eGFR BUN/Creatinine Ratio (10-20) Glucose (70-99(Fasting)) mg/dl Calcium (8.6-10.3) mg/dl Magnesium (1.7-2.4) mg/dl Total Bilirubin (0.2-1.0) mg/dl AST (13-39) U/L ALT (7-52) U/L Alkaline Phosphatase (34-104) U/L Troponin I High Sens (0-20) pg/ml B-Natriuretic Peptide (0-100) pg/ml Total Protein (6.0-8.3) gm/dl Albumin (3.4-5.0) gm/dl Globulin (2.5-4.0) gm/dl Albumin/Globulin Ratio (0.9-2) Urine Color Yellow Urine Appearance Clear (Clear) Urine pH 5.5 (4.5-7.5) Ur Specific [place] 1.016 (1.000-1.030) Urine Protein Trace H (Negative) Urine Glucose (UA) Negative (Negative) Urine Ketones Trace H (Negative) Urine Blood Negative (Negative) Urine Nitrite Negative (Negative) Urine Bilirubin Negative (Negative) Urine Urobilinogen Negative (Negative) Ur Leukocyte Esterase Negative (Negative) Urine WBC (Auto) 0-5 (0-5) /hpf Urine RBC (Auto) 0-2 (0-2) /hpf U Hyaline Cast (Auto) 0-2 (0-2) /lpf U Epithel Cells (Auto) 0-2 (0-2) /hpf Urine Bacteria (Auto) None Seen (None Seen) Adenovirus (PCR) (NotDetected) B. pertussis DNA (PCR) (NotDetected) B.parapertussis DNA PCR (NotDetected) C. pneumoniae DNA (PCR) (NotDetected) Coronavirus OC43 (PCR) (NotDetected) Coronavirus HKU1 (PCR) (NotDetected) Coronavirus 229E (PCR) (NotDetected) SARS-CoV-2 (PCR) (NotDetected) Coronavirus NL63 (PCR) (NotDetected) Human Metapneumovir PCR (NotDetected) Influenza Type A (PCR) (NotDetected) Influenza Type B (PCR) (NotDetected) M. pneumoniae (PCR) (NotDetected) Parainfluenza 1 (PCR) (NotDetected) Parainfluenza 2 (PCR) (NotDetected) Parainfluenza 3 (PCR) (NotDetected) Parainfluenza 4 (PCR) (NotDetected) RSV (PCR) (NotDetected) Entero/Rhino (PCR) (NotDetected) Administered Medications Discontinued Medications Magnesium Sulfate/Dextrose (Magnesium Sulfate / D5w) 1 gm in 100 mls @ 100 mls/hr IV NOW STA Stop: 06/02/24 05:33 Last Infusion: 06/02/24 06:20 Dose: Infused Documented By: Admin: 06/02/24 04:55 Dose: 100 mls/hr Documented By: Torsemide (Torsemide 100 Mg Tab) 100 mg PO NOW STA Stop: 06/02/24 02:55 Last Admin: 06/02/24 04:00 Dose: 100 mg Documented By: Imaging Data Radiologist's Impression: Chest X-Ray 06/02/24 01:10 EXAM: XR chest 1V portable CLINICAL HISTORY: Dyspnea. TECHNIQUE: An X-ray image of the chest is obtained in AP projection. COMPARISON: 04/01/2019 FINDINGS: Pulmonary Parenchyma: Prominent hilar shadows and bronchovascular markings at both lung obrien denoting congestive changes. Bilateral lower lung zones opacities. Obscured both costophrenic recesses may suggest pleural reaction. No pulmonary nodules are identified. Heart and Mediastinum: Enlarged cardiac shadow and prominent aortic knuckle. No hilar or mediastinal lymphadenopathy. Pacemaker is seen in situ. Bony Thorax: Bony thorax appears intact without fractures or deformities. Soft Tissues: Soft tissues overlying the chest wall are unremarkable. IMPRESSION: 1. Prominent hilar shadows and bronchovascular markings at both lung obrien denoting congestive changes. 2. Bilateral lower lung zones opacities may suggest an inflammatory process to be correlated clinically. 3. Obscuring both costophrenic recesses may suggest pleural reaction. 4. Cardiomegaly. 5. Further CT chest is recommended if clinically warranted. 6. Progressive course compared to the last CR study. Electronically signed by Shiraz García 06-02-2024 02:54 AM Discharge Plan Visit Data Chief Complaint: Shortness of Breath/Dyspnea Stated Complaint: SOB ED Provider: Poornima Angela Discharge Problem: Dyspnea, Lightheadedness, Pulmonary edema, Non-sustained ventricular tachycardia Forms Stand Alone Forms: [employer] Prescriptions Prescriptions: No Action (DME) FreeStyle Karla 3 [place] Misc See Rx Instructions .Route Qty: 1 1RF Rx Instructions: moniotr blood sugar (DME) FreeStyle Akrla 3 [place] Misc See Rx Instructions .ROUTE .MEDSUPPLY Qty: 1 0RF Rx Instructions: use with karla 3 + sensor tirzepatide 7.5 mg/0.5 mL pen injector 7.5 mg subcut Q7D 30 Days Qty: 2 3RF Rx Instructions: WEDNES[place]YS (DME) pen needle, diabetic [Comfort EZ Pen [place]] 31 gauge x 5/16" needle See Rx Instructions .Route Qty: 100 3RF Rx Instructions: use when administering insuling daily budesonide 0.25 mg/2 mL suspension for nebulization 0.25 mg inhalation DAILY PRN (Reason: Shortness Of Breath) budesonide-formoterol [Symbicort] 160-4.5 mcg/actuation HFA aerosol inhaler 2 inh inhalation BID Qty: 3 3RF Rx Instructions: 2 puffs twice per day. Rinse mouth after each use (DME) OneTouch Verio test strips Strip See Rx Instructions miscellaneous .MEDSUPPLY Qty: 100 5RF Rx Instructions: check 3x a day (DME) lancets [OneTouch Delica Plus Lancet] 30 gauge misc See Rx Instructions .ROUTE .MEDSUPPLY Qty: 100 5RF Rx Instructions: use new lancet 3x a day (DME) blood-glucose meter [OneTouch Verio Flex meter] [facility] See Rx Instructions .ROUTE .MEDSUPPLY Qty: 1 0RF Rx Instructions: As directed hydroxyzine HCl 25 mg tablet 25 mg PO TID PRN (Reason: itching) Qty: 90 1RF (DME) FreeStyle Karla 3 Plus Sensor Device See Rx Instructions .ROUTE .MEDSUPPLY Qty: 2 11RF Rx Instructions: change sensor every 15 days (DME) Oxygen Home Liters Per Minute See Rx Instructions .MEDSUPPLY Qty: 1 0RF Rx Instructions: Home Oxygen concentrator with portability, test for conserving device. 2-4LMP via n/c at rest/sleep and 2-4 LPM via n/c with exertion; VÍCTOR 99. atorvastatin 10 mg tablet 10 mg PO DAILY Qty: 90 3RF nystatin 100,000 unit/gram powder 1 applic topical BID PRN (Reason: Skin Irritation) Qty: 60 0RF insulin glargine 100 unit/mL (3 mL) insulin pen 50 unit subcut BID triamcinolone acetonide 0.025 % cream 1 applic topical TID PRN (Reason: rash) Qty: 454 0RF isosorbide mononitrate 60 mg tablet extended release 24 hr 60 mg PO DAILY Qty: 90 1RF metoprolol succinate 100 mg tablet extended release 24 hr 100 mg PO BID Qty: 180 1RF dapagliflozin propanediol [Farxiga] 10 mg tablet 10 mg PO DAILY Qty: 90 1RF Entresto 97-103 mg tablet 1 tab PO BID Qty: 180 1RF torsemide 100 mg tablet 100 mg PO BID Qty: 180 1RF Rx Instructions: 100 mg orally twice a day; nitroglycerin [Nitrostat] 0.4 mg tablet, sublingual 0.4 mg sublingual UD PRN (Reason: Chest Pain) aspirin [Neisha Low Dose Aspirin] 81 mg tablet,delayed release (DR/EC) 81 mg PO QAM albuterol sulfate 2.5 mg /3 mL (0.083 %) solution for nebulization 2.5 mg inhalation Q6H PRN (Reason: Shortness Of Breath Or Wheezing) Rx Instructions: Use every 6 hours as needed with nebulizer albuterol sulfate 90 mcg/actuation HFA aerosol inhaler 1 inh inhalation QID PRN (Reason: Shortness Of Breath Or Wheezing) lidocaine 5 % adhesive patch,medicated 1 patch topical DAILY PRN (Reason: Pain) trolamine salicylate [Myoflex] 10 % Cream 1 applic EXT BID PRN (Reason: left sided neck pain) Qty: 35.4 0RF Rx Instructions: Please give tube from hospital spironolactone 50 mg tablet 50 mg PO BID Qty: 60 0RF metoprolol succinate 25 mg tablet extended release 24 hr 25 mg PO BID Qty: 60 0RF Rx Instructions: Total dose is 125 mg twice daily Referrals Referrals: Gosia Martinez MD [Primary Care Provider] -
[2024-06-02 02:37] LABS: Partial Thromboplastin Ratio 1.1; Partial Thromboplastin Time 30 Seconds (21-31); Prothrombin Time 11.1 Seconds (9.0-12.0)
--- NOTE | 2024-06-02 02:54 | XRay Report ---
EXAM: XR chest 1V portable CLINICAL HISTORY: Dyspnea. TECHNIQUE: An X-ray image of the chest is obtained in AP projection. COMPARISON: 04/01/2019 FINDINGS: Pulmonary Parenchyma: Prominent hilar shadows and bronchovascular markings at both lung obrien denoting congestive changes. Bilateral lower lung zones opacities. Obscured both costophrenic recesses may suggest pleural reaction. No pulmonary nodules are identified. Heart and Mediastinum: Enlarged cardiac shadow and prominent aortic knuckle. No hilar or mediastinal lymphadenopathy. Pacemaker is seen in situ. Bony Thorax: Bony thorax appears intact without fractures or deformities. Soft Tissues: Soft tissues overlying the chest wall are unremarkable. IMPRESSION: 1. Prominent hilar shadows and bronchovascular markings at both lung obrien denoting congestive changes. 2. Bilateral lower lung zones opacities may suggest an inflammatory process to be correlated clinically. 3. Obscuring both costophrenic recesses may suggest pleural reaction. 4. Cardiomegaly. 5. Further CT chest is recommended if clinically warranted. 6. Progressive course compared to the last CR study. Electronically signed by Shiraz García 06-02-2024 02:54 AM
[2024-06-02] MEDS: TORSEMIDE 100 MG TAB PO STA (04:00)
[2024-06-02] MEDS: MAGNESIUM SULFATE / D5W 1 GM/100 ML BAG IV STA (04:55)
--- NOTE | 2024-06-02 05:03 | History & Physical Report ---
Date of Service June 02, 2024 Assessment & Plan (1) Acute on chronic heart failure with reduced ejection fraction (HFrEF, <= 40%): (2) Non-sustained ventricular tachycardia: (3) Venous stasis dermatitis: (4) Type 2 diabetes mellitus with obesity: Plan 48-year-old male PMHx chronic respiratory failure, HFrEF, T2DM, MARIELENA, COPD, and history of noncompliance presenting to ED for worsening SOB starting the day prior to arrival. ED evaluation reveals no leukocytosis, stable H&H; normal PT/INR; VBG's with [id number], CMP chloride 109, glucose 146, calcium 8.5; troponin 23.9, pending repeat; BNP 872; bio fire pending; CXR with prominent hilar shadowing bronchovascular markings of both lung obrien to noted congestive changes, bilateral lower lung zone opacities, obscuring both costophrenic recesses, and cardiomegaly; EKG revealed sinus tachycardia with LAD and LAE at 105 bpm.; Provided with mag sulfate 1 g IV and torsemide 100 mg p.o. in ED. 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 On torsemide and spironolactone daily as outpatient; also on Entresto, metoprolol succinate, isosorbide mononitrate. Admits to compliance. With AICD in place, noted to have 7 beat run of V. tach in ED, with history of such. - Daily weights standing, I+Os - Echo 09/2023 EF 15 to 20%, severe global hypokinesis left ventricle, mild MR - no repeat at admission - BNP 872 - CXR prominent hilar shadow bronchovascular markings of both lung obrien noted congestive changes - Troponin 23.9, repeat 21.0; EKG sinus tachycardia without ischemic changes - no chest pain; demand - Continue Entresto and metoprolol; continue torsemide and spironolactone - Lasix 80 mg IV twice daily added at admission - adjust diuretics as appropriate #Venous stasis dermatitis Rash bilateral LE, ongoing "for weeks" per patient. Prescribed triamcinolone and nystatin by PCP and to be followed with emollient moisturizer; states it gave him rash so d/c. Was also started on antibiotic (azithromycin) at that time (05/09/2024). No infectious symptoms. - CBC without leukocytosis; no fevers - Hydroxyzine prn for itching - If open area -- local wound care to avoid infection #T2DM H/o T2DM, home regimen includes glargine 50U twice daily, tirzepatide weekly, Farxiga daily. - Most recent A1C 02/2024 @ 7.6% - SSI with target BSG range 110-140mg/dL, CF 15, carb ratio 8 - Hold home insulin -- Lantus 35U BID (per last admission) - continue while inpatient - BSG ACHS - Pharm glycemic management consult placed, appreciate assistance - adjust regimen as needed #COPD H/o COPD, requires 5L O2 at baseline and CPAP nightly. Does not appear to be in exacerbation today. - Continue O2 - 5L NC - Continue home meds albuterol prn, budesonide neb/Symbicort or equivilant if NF #MARIELENA- BiPAP 16/8 when sleeping/napping #HLD- Atorvastatin - continue Hernia noticeable on exam, not tender and not causing patient symptoms, however he is noticing it more. Most recent CTAP 08/2022 -- consider repeat imaging based on patient's clinical course Dispo: Admit, PCU VTE prophylaxis: Lovenox This document was dictated utilizing [employer]. Please excuse any grammatical errors that may be secondary to use of this software. Admission and Anticipated Discharge Date Admission Date: 06/02/2024 History of Present Illness Chief Complaint: SOB Primary Care Provider: Gosia Martinez MD 48-year-old male PMHx chronic respiratory failure, HFrEF, T2DM, MARIELENA, COPD, and history of noncompliance presenting to ED for worsening SOB starting the day prior to arrival. Patient reports that he was at the hospital visiting a friend and did not have his usual oxygen with him. When he was in the parking lot trying to get into his car he noted that he was more winded than normal and he decided to come in to be evaluated. Denies chest pain, palpitations, N/V/D/C, numbness/tingling, URI symtpoms, LUTS, F/C, weakness, or syncope. States that when he coughs he notices a hernia coming out and then it worries him but not having abdominal pain. BLE are itching per patient, no open areas noted. Reports that he is being compliant with his medications, denies changes in diet. Does not wear CPAP at night even though he is prescribed it; question of unable to get equipment vs cost limiting him. ED evaluation reveals no leukocytosis, stable H&H; normal PT/INR; VBG's with [id number], CMP chloride 109, glucose 146, calcium 8.5; troponin 23.9, pending repeat; BNP 872; bio fire pending; CXR with prominent hilar shadowing bronchovascular markings of both lung obrien to noted congestive changes, bilateral lower lung zone opacities, obscuring both costophrenic recesses, and cardiomegaly; EKG revealed sinus tachycardia with LAD and LAE at 105 bpm.; Provided with mag sulfate 1 g IV and torsemide 100 mg p.o. in ED. Please see Dr. Laguna's attestation for adjustments/additions to treatment plan. Allergies Allergy/AdvReac Type Severity Reaction Status Date / Time albuterol Allergy Severe proair Verified 06/02/24 01:54 "trouble taking breaths" ceftriaxone Allergy Severe SHORTNESS Verified 06/02/24 01:54 OF BREATH lidocaine Allergy Severe SHORTNESS Verified 06/02/24 01:54 OF BREATH, diaphoretic, hives mushroom Allergy Severe Anaphylaxis Verified 06/02/24 01:54 procaine Allergy Severe SHORTNESS Verified 06/02/24 01:54 OF BREATH, diaphoretic, hives amoxicillin Allergy Intermediate HIVES/FACIAL Verified 06/02/24 01:54 SWELLING clavulanic acid Allergy Intermediate HIVES/FACIAL Verified 06/02/24 01:54 SWELLING lisinopril Allergy Intermediate HIVES Verified 06/02/24 01:54 shellfish derived Allergy Unknown Unknown Verified 06/02/24 01:54 acetaminophen AdvReac Mild NAUSEA Verified 06/02/24 01:54 Fish Containing Products AdvReac Unknown Unknown Verified 06/02/24 01:54 Home Medications Medication Instructions Recorded Confirmed Type nitroglycerin 0.4 mg sublingual 0.4 mg sublingual UD PRN Chest Pain 04/24/19 06/02/24 History tablet (Nitrostat) aspirin 81 mg tablet,delayed 81 mg PO QAM 06/16/21 06/02/24 History release (Neisha Low Dose Aspirin) albuterol sulfate 2.5 mg/3 mL 2.5 mg inhalation Q6H PRN 12/02/21 06/02/24 History (0.083 %) solution for nebulization Shortness Of Breath Or Wheezing budesonide 0.25 mg/2 mL suspension 0.25 mg inhalation DAILY PRN 09/15/22 06/02/24 History for nebulization Shortness Of Breath blood-glucose meter (OneTouch #1 ea 10/12/22 04/28/24 Rx Verio Flex Meter) lancets 30 gauge (OneTouch Delica #100 ea 10/12/22 04/28/24 Rx Plus Lancet) Symbicort 160 mcg-4.5 2 inh inhalation BID #3 Inhalers 11/14/22 06/02/24 Rx mcg/actuation HFA aerosol inhaler (budesonide-formoterol) blood sugar diagnostic (OneTouch #100 ea 01/17/23 04/28/24 Rx Verio test strips) pen needle, diabetic 31 gauge x #100 ea 02/16/23 04/28/24 Rx 5/16" (Comfort EZ Pen [place]) hydroxyzine HCl 25 mg tablet 25 mg PO TID PRN itching #90 tabs 05/31/23 06/02/24 Rx albuterol sulfate 90 mcg/actuation 1 inh inhalation QID PRN Shortness 10/12/23 06/02/24 History aerosol inhaler Of Breath Or Wheezing lidocaine 5 % topical patch 1 patch topical DAILY PRN Pain 11/03/23 06/02/24 History trolamine salicylate 10 % topical 1 applic EXT BID PRN left sided 11/06/23 06/02/24 Rx cream (Myoflex) neck pain #35.4 grams blood-glucose sensor (FreeStyle #2 ea 12/13/23 04/28/24 Rx Karla 3 Plus Sensor device) blood-glucose,electoral officer,cont #1 ea 01/14/24 04/28/24 Rx (FreeStyle Karla 3 [place]) blood-glucose,electoral officer,cont #1 ea 01/14/24 04/28/24 Rx (FreeStyle Karla 3 [place]) atorvastatin 10 mg tablet 10 mg PO DAILY #90 tabs 02/04/24 06/02/24 Rx Farxiga 10 mg tablet 10 mg PO DAILY #90 tabs 04/28/24 06/02/24 Rx (dapagliflozin propanediol) insulin glargine 100 unit/mL (3 50 unit subcut BID 04/28/24 06/02/24 History mL) subcutaneous pen isosorbide mononitrate 60 mg 60 mg PO DAILY #90 tabs 04/28/24 06/02/24 Rx tablet,extended release 24 hr metoprolol succinate 100 mg 100 mg PO BID #180 tabs 04/28/24 06/02/24 Rx tablet,extended release 24 hr sacubitril 97 mg-valsartan 103 mg 1 tab PO BID #180 tabs 04/28/24 06/02/24 Rx tablet (Entresto) torsemide 100 mg tablet 100 mg PO BID #180 tabs 04/28/24 06/02/24 Rx triamcinolone acetonide 0.025 % 1 applic topical TID PRN rash #454 04/28/24 06/02/24 Rx topical cream grams nystatin 100,000 unit/gram topical 1 applic topical BID PRN Skin 05/09/24 06/02/24 Rx powder Irritation #60 grams tirzepatide 7.5 mg/0.5 mL 7.5 mg (0.5 mL) subcut Q7D 30 days 05/09/24 06/02/24 Rx subcutaneous pen injector #2 mL metoprolol succinate 25 mg 25 mg PO BID #60 tabs 05/26/24 06/02/24 Rx tablet,extended release 24 hr spironolactone 50 mg tablet 50 mg PO BID #60 tabs 05/26/24 06/02/24 Rx Oxygen Home #1 ea 05/29/24 05/29/24 Rx Past Med/Surg History Problem List (Updated 06/02/24 @ 06:05 by Shelton Comer PA-C) Venous stasis dermatitis Non-sustained ventricular tachycardia (Acute) Pulmonary edema (Acute) Lightheadedness (Acute) Dyspnea (Acute) Chronic respiratory failure with hypoxia Acute on chronic heart failure with reduced ejection fraction (HFrEF, <= 40%) Type 2 diabetes mellitus with microalbuminuria Periapical abscess Pulmonary edema (Acute) Hypomagnesemia (Acute) Type 2 diabetes mellitus with peripheral neuropathy Type 2 diabetes mellitus with obesity Diabetic peripheral neuropathy Non-proliferative diabetic retinopathy, both eyes Uncontrolled diabetes mellitus with hyperglycemia Chronic respiratory failure Normocytic anemia Hypertension (Chronic) Poor intravenous access Morbid obesity with BMI of 50.0-59.9, adult Chronic anticoagulation Diabetes mellitus type II, uncontrolled (Chronic) Urinary bladder incontinence Hx of local infection of skin and subcutaneous tissue Ambulatory dysfunction (Chronic) Recurrent infection of skin Pulmonary nodule V tach (Acute) HFrEF (heart failure with reduced ejection fraction) Hemoptysis (Acute) Vitamin D deficiency Medical History Non-sustained ventricular tachycardia Obstructive sleep apnea NICM (nonischemic cardiomyopathy) Pt admitted for elective ICD. Underwent procedure without any complications monitored over night and discharged home. Combined systolic and diastolic heart failure Nonischemic cardiomyopathy, unclear etiology. Difficult to manage. Integrated into heart failure clinic. Frequent admissions for heart failure exacerbations. Echo (05/31) EF=25-30% with mod to severe global hypokinesis, basal kelsi-septal akinetic wall, LVH, RVSP elevated at 30-40mmHg, and mod dilated ascending aorta. Managed medically with ASA + BB + ARB/Neprilysin inhibitor (Entresto) + high dose furosemide (160mg BID) + metolazone (3x weekly). Considering ICD given EF. COPD (chronic obstructive pulmonary disease) Hypomagnesemia Medical non-compliance Intellectual disability Chronic dental pain Small bowel obstruction Housing instability, currently housed, at risk for homelessness Hearing loss of both ears Nonproliferative retinopathy due to secondary diabetes Dilatation of thoracic aorta Iliac aneurysm Vitamin D insufficiency Previously deficient, taking Vit D supplementation Umbilical hernia Lung nodule Fatty liver Surgical History AICD (automatic cardioverter/defibrillator) present H/O oral surgery History of carpal tunnel surgery S/P tonsillectomy History of cholecystectomy Family History Father , age 57 of an MT. Heart disease Myocardial infarction Mother , age 67 of a ruptured neck vessel Sudden Other Depression Lung disease No pertinent family history Denies family history of Ovarian cancer Prostate cancer Breast cancer Colorectal cancer Social History Smoking Status: Never smoker Tobacco Type: Cigarettes Age Started Using Tobacco: 14; Age Quit Using Tobacco: 18; packs per day: 1; Cigarettes Per Day: 2 PPD; Second Hand Exposure: No; Do You Dip or Chew Tobacco: No; Hx Alcohol Use: No Hx Substance Use: No Preferred Language: Albanian Communication Ability: Effective Visual Impairment: No Limitations Hearing Ability: Normal Burn Nurse Required: No Beliefs That Will Affect Care: None marital status: Current Living Situation: Family Current Living Situation Comment: Lives at home with current occupational status: unemployed How many Children do You have: 0 Feels Safe at Home: Yes Childhood Exposure to Second-Hand Smoke: Yes Dental Care, Regularly: Yes Physical Activity Frequency: Does not Exercise Seatbelt Use: never Sunscreen Use: No Assistive Devices: Oxygen - Continuous and Walker Review of Systems 2 Review of Systems: All systems reviewed & are unremarkable except as noted in Subjective Physical Exam Physical Exam: General: No acute distress, obese Skin: Warm and dry; chronic skin changes BLE, no open areas Head: Normocephalic, atraumatic Eyes: PERRL, conjunctivae clear, sclera non-icteric ENT: External ear and ear canal without swelling; nose atraumatic; poor dentition, tongue normal appearance, pharynx normal Neck: Supple, no LAD Cardio: RRR, no M/G/R, S1 and S2 normal Resp: No respiratory distress, decreased breath sounds throughout; wearing O2 via NC Abdomen: Soft, symmetric, nontender; Hernia palpable when coughing, no tenderness to palpation; No masses or hepatosplenomegaly; Bowel sounds normoactive; abdomen with bruising at areas of injection sites for SQ injections, no tenderness to palpation at these areas, no open areas MSK: No deformities; pulses palpable and equal; 2+ pitting edema BLE. Neuro: Awake, alert; Sensation intact bilaterally; CN grossly intact Psych: Appropriate mood and affect. Results & Data Results & Data Vital Signs (Past 12 Hours) Vital Signs Temp Pulse Pulse Resp BP BP Pulse Ox 06/02/24 04:20 88 06/02/24 04:09 90 24 95 06/02/24 03:30 88 18 97 06/02/24 01:41 97 06/02/24 01:41 103 H 22 156/130 H 97 06/02/24 01:36 98 06/02/24 01:36 06/02/24 01:09 99 H 06/02/24 01:05 156/132 H 06/02/24 00:56 36.5 C 109 H 24 94 O2 Del Method O2 Flow Rate 06/02/24 04:20 06/02/24 04:09 Nasal Cannula 5 06/02/24 03:30 Nasal Cannula 5 06/02/24 01:41 Nasal Cannula 5 06/02/24 01:41 Nasal Cannula 5 06/02/24 01:36 Nasal Cannula 06/02/24 01:36 Nasal Cannula 5 06/02/24 01:09 06/02/24 01:05 06/02/24 00:56 Room Air Laboratory Results 06/02/24 01:32 WBC 7.91 RBC 5.26 Hgb 15.4 Hct 45.4 MCV 86.3 MCH 29.3 MCHC 33.9 RDW Std Deviation 48.0 H RDW Coeff of Zoltan 15.3 H Plt Count 157 MPV 10.1 Immature Gran % (Auto) 0.5 Neut % (Auto) 56.5 Lymph % (Auto) 31.6 [place] % (Auto) 8.8 Eos % (Auto) 2.3 Baso % (Auto) 0.3 Neut # (Auto) 4.47 Lymph # (Auto) 2.50 [place] # (Auto) 0.70 H Eos # (Auto) 0.18 Baso # (Auto) 0.02 Immature Gran # (Auto) 0.04 PT 11.1 INR 1.0 APTT 30 PTT Ratio 1.1 VBG pH 7.39 VBG pCO2 35 L VBG pO2 57 VBG HCO3 21 VBG O2 Saturation 87.8 VBG Base Excess -3.1 Sodium 138 Potassium 3.8 Chloride 109 H Carbon Dioxide 23 Anion Gap 6 BUN 17 Creatinine 1.03 Est Cr Clr Drug Dosing 128.8 eGFR 90.16 BUN/Creatinine Ratio 16.5 Glucose 146 H Calcium 8.5 L Magnesium 1.7 Total Bilirubin 1.0 AST 20 ALT 15 Alkaline Phosphatase 76 Troponin I High Sens 23.9 H B-Natriuretic Peptide 872 H Total Protein 7.0 Albumin 3.7 Globulin 3.3 Albumin/Globulin Ratio 1.1 Diagnostic Findings Chest X-Ray 06/02/24 01:10 EXAM: XR chest 1V portable CLINICAL HISTORY: Dyspnea. TECHNIQUE: An X-ray image of the chest is obtained in AP projection. COMPARISON: 04/01/2019 FINDINGS: Pulmonary Parenchyma: Prominent hilar shadows and bronchovascular markings at both lung obrien denoting congestive changes. Bilateral lower lung zones opacities. Obscured both costophrenic recesses may suggest pleural reaction. No pulmonary nodules are identified. Heart and Mediastinum: Enlarged cardiac shadow and prominent aortic knuckle. No hilar or mediastinal lymphadenopathy. Pacemaker is seen in situ. Bony Thorax: Bony thorax appears intact without fractures or deformities. Soft Tissues: Soft tissues overlying the chest wall are unremarkable. IMPRESSION: 1. Prominent hilar shadows and bronchovascular markings at both lung obrien denoting congestive changes. 2. Bilateral lower lung zones opacities may suggest an inflammatory process to be correlated clinically. 3. Obscuring both costophrenic recesses may suggest pleural reaction. 4. Cardiomegaly. 5. Further CT chest is recommended if clinically warranted. 6. Progressive course compared to the last CR study. Electronically signed by Shiraz García 06-02-2024 02:54 AM Medications Administered Torsemide 100 mg p.o. Mag sulfate 1 g IV ECG Additional Comments: Sinus tachycardia, LAE, LAD, LVH 105 bpm, WI 166, QRS 110, QT/QTc 370/489, PRT 40/-40/86 Code Status & VTE Plan Code Status Full Supervising Physician Co-Signing Physician Notes I personally saw and examined the patient. I independently reviewed the labs, EKG, imaging, problem list, medication list, past medical history and family history. I verified all caraballo points and agree with Shelton Comer PA-C with the following exceptions and/or additions: 48 year old male well known to the service with chronic HFrEF and non compliance presents to the ER with shortness of breath and hypoxia after not wearing his oxygen while visiting the hospital. Significant urine output since torsemide given in the ER. O/E increased respiratory rate and effort, Bibasal crackles and poor inspiratory entry b/l, HS RRR, no murmurs, pedal edema 1+ b/l equal A/P Acute on chronic HFrEF - restart all his usual medication but will switch torsemide for Lasix 80mg IV BID PG Care Time/CCT Total # of Minutes Spent Total Time Spent with Patient: Total time spent is greater than 50% in coordination of care (as documented) at patient's floor/unit and/or counseling patient: Coding Level of Care Code 25717 INT INP/OBS CARE 3/75MIN Diagnoses Acute on chronic heart failure with reduced ejection fraction (HFrEF, <= 40%) I50.23 Non-sustained ventricular tachycardia I47.29 Venous stasis dermatitis I87.2 Type 2 diabetes mellitus with obesity E11.69; E66.9
[2024-06-02 05:10] LABS: Adenovirus PCR Not Detected (NotDetected); Bordetella parapertussis PCR Not Detected (NotDetected); Bordetella pertussis PCR Not Detected (NotDetected); Chlamydia pneumoniae PCR Not Detected (NotDetected); Coronavirus 229E PCR Not Detected (NotDetected); Coronavirus CoV-2 (COVID19)PCR Not Detected (NotDetected); Coronavirus HKU1 PCR Not Detected (NotDetected); Coronavirus NL63 PCR Not Detected (NotDetected); Coronavirus OC43PCR Not Detected (NotDetected); Human Metapneumovirus PCR Not Detected (NotDetected); Influenza A PCR Not Detected (NotDetected); Influenza B PCR Not Detected (NotDetected); Mycoplasma pneumoniae PCR Not Detected (NotDetected); Parainfluenza Virus 1 PCR Not Detected (NotDetected); Parainfluenza Virus 2 PCR Not Detected (NotDetected); Parainfluenza Virus 3 PCR Not Detected (NotDetected); Parainfluenza Virus 4 PCR Not Detected (NotDetected); Respiratory Syncytial VirusPCR Not Detected (NotDetected); Rhinovirus/Enterovirus PCR Not Detected (NotDetected)
[2024-06-02 06:34] LABS: Appearance Urine Clear (Clear); Bacteria Urine Automated None Seen (None Seen); Bilirubin Urine Negative (Negative); Blood Urine Negative (Negative); Cast Urine Automated 0-2 /lpf (0-2); Color Urine Yellow; Epithelial Cell Urine Auto 0-2 /hpf (0-2); Glucose Urine UA Negative (Negative); Ketones Urine Trace (Negative); Leukocyte Esterase Urine Negative (Negative); Nitrite Urine Negative (Negative); Protein Urine Trace (Negative); RBC Urine Automated 0-2 /hpf (0-2); Specific Gravity Urine 1.016 (1.000-1.030); Urobilinogen Urine Negative (Negative); WBC Urine Automated 0-5 /hpf (0-5); pH Urine 5.5 (4.5-7.5)
[2024-06-02] MEDS ORDERED: GLUCOSE 10 TAB/TUBE PO PRN (08:46)
[2024-06-02] MEDS ORDERED: GLUCOSE 40% GEL 15 GM TUBE PO PRN (08:46)
[2024-06-02] MEDS ORDERED: POLYETHYLENE (MIRALAX) 17 GM PACK PO PRN (08:46)
[2024-06-02] MEDS ORDERED: ALBUTEROL 0.083% NEBU SOLN 3 ML VIAL INH PRN (08:46)
[2024-06-02] MEDS ORDERED: TROLAMINE SALICYLATE 10% CRM 255 APPLN/85 GM TUBE EXT PRN (08:46)
[2024-06-02] MEDS ORDERED: MELATONIN 3 MG TAB PO PRN (08:46)
[2024-06-02] MEDS ORDERED: BUDESONIDE 0.25 MG/2 ML VIAL (PULMICORT) INH PRN (08:46)
[2024-06-02] MEDS ORDERED: ALBUTEROL HFA 8 GM INHALER INH PRN (08:46)
[2024-06-02] MEDS ORDERED: hydrOXYzine HCl 25 MG TAB PO PRN (08:46)
[2024-06-02] MEDS ORDERED: CARBOHYDRATES FOR HYPOGLYCEMIA PO PRN (08:46)
[2024-06-02] MEDS ORDERED: GLUCAGON FOR INJ 1 MG VIAL SQ PRN (08:46)
[2024-06-02] MEDS ORDERED: PHARMACY GLYCEMIC MGMT CONSULT PRN (08:46)
[2024-06-02] MEDS ORDERED: LIDOCAINE 5% 1 PATCH TD PRN (08:46)
[2024-06-02] MEDS ORDERED: NITROGLYCERIN SL 0.4 MG/TAB TAB SL PRN (08:46)
[2024-06-02] MEDS ORDERED: DEXTROSE 50% 50 ML SYRINGE IV PRN (08:46)
[2024-06-02] MEDS ORDERED: ONDANSETRON INJ 2 MG/ML 2 ML VIAL IV PRN (08:46)
[2024-06-02] MEDS ORDERED: NON-FORMULARY MEDICATION (Dapagliflozin Propanediol [Farxiga] 10 mg tablet) PO SCH (09:00)
[2024-06-02] MEDS ORDERED: LANTUS PER UNIT CHARGE SQ SCH ×2 (09:00→21:00)
--- NOTE | 2024-06-02 09:13 | Electrocardiogram Report ---
Test Reason : Blood Pressure : */* mmHG Vent. Rate : 105 BPM Atrial Rate : 105 BPM P-R Int : 166 ms QRS Dur : 110 ms QT Int : 370 ms P-R-T Axes : 40 -40 86 degrees QTcB Int : 489 ms Poor data quality, interpretation may be adversely affected Sinus tachycardia Possible Left atrial enlargement Left axis deviation Minimal voltage criteria for LVH, may be normal variant Abnormal ECG When compared with ECG of 24-May-2024 05:57, T wave inversion less evident in Lateral leads Confirmed by Rodney Cary ([id number]) on 06/02/2024 9:13:11 AM Referred By: REFERRED SELF Confirmed By: Rodney Cary
[2024-06-02] MEDS: FUROSEMIDE 40 MG/4 ML VIAL IV SCH (11:03)
[2024-06-02] MEDS: METOPROLOL SUCC 50MG EXT REL TAB PO SCH (11:03)
[2024-06-02] MEDS: VALSARTAN/SACUBITRIL 103/97MG TAB PO SCH (11:04)
[2024-06-02] MEDS: METOPROLOL SUCC 25MG EXT REL TAB PO SCH (11:04)
[2024-06-02] MEDS: TORSEMIDE 100 MG TAB PO SCH (11:04)
[2024-06-02] MEDS: ASPIRIN 81 MG ECTAB PO SCH (11:04)
[2024-06-02] MEDS: ISOSORBIDE MONO EXTENDED REL 60 MG TABCR PO SCH (11:04)
[2024-06-02] MEDS: ATORVASTATIN 10 MG TAB PO SCH (11:05)
[2024-06-02] MEDS: ENOXAPARIN INJ 40 MG/0.4 ML SYR SQ SCH (11:05)
[2024-06-02] MEDS: INSULIN ASPART PER UNIT CHARGE SC SCH (11:06)
[2024-06-02] MEDS: LANTUS PER UNIT CHARGE SQ ONE (11:06)
[2024-06-02] MEDS: FLUTICASONE/VILANTEROL 200/25MCG 14 PUFFS/INHALER INH SCH (11:08)
[2024-06-02] MEDS: SPIRONOLACTONE 25 MG TAB PO SCH (11:48)
--- NOTE | 2024-06-02 14:18 | Pharmacy Report ---
Pharmacy Glycemic Short Note 2 - Date of Service June 02, 2024 - Glycemic Short BSG Results (Last 24 hours): 06/02/24 06/02/24 01:32 09:52 Glucose 146 H POC Glucose 127 H OUTPATIENT ANTIDIABETIC REGIMEN: * Insulin glargine 50 units SC BID * Tirzepatide 7.5 mg SC weekly HbA1c: 7.6% (03/13/24) ASSESSMENT: * is a 48 year old male who presents with acute exacerbation of HFrEF * Patient known to pharmacy glycemic consult service due to prior admissions/consults * Will utilize prior inpatient glycemic data to guide initial dosing * Current plan should provide ~50/50 basal/bolus split * Diet is ordered PLAN FOR INPATIENT GLYCEMIC CONTROL: * Hold outpatient diabetes medications * Basal insulin * Lantus 25 units SC this AM * Lantus 0-10-20 units SC HS (see EHR for details) * Reassess in AM * Bolus insulin * NovoLog per scale ACHS or Q6hrs while NPO * Goal Range: Low 110 mg/dL - High 140 mg/dL * Correction Factor: 15 mg/dL/unit * Nutritional / Prandial insulin per carb ratio of 1 unit per 5 grams CHO consumed
[2024-06-02] MEDS: LANTUS PER UNIT CHARGE SQ SCH (21:30)
--- NOTE | 2024-06-03 06:08 | Ultrasound Report ---
EXAM: US venous doppler LE BI CLINICAL HISTORY: Swelling, HX: PREV 03/11/21. CONTINUED LOWER EXT REDNESS AND SWELLING. TECHNIQUE: Grayscale ultrasound, with and without compression, and color Doppler spectral waveform analysis were performed of the deep veins of the bilateral lower extremities from the level of the common femoral veins to the level of the popliteal veins. The posterior tibial and peroneal veins were also scanned. COMPARISON: 11/26/2018 FINDINGS: Exam limited by increased body habitus with BMI of 45 and patient unable to lie flat. Bilateral common femoral veins, femoral veins, and popliteal veins are compressible and opacify at color Doppler evaluation with no evidence of deep vein thrombosis. There is no evidence of DVT in the visualized portions of the posterior tibial and peroneal veins. IMPRESSION: 1. Negative for deep vein thrombosis. Electronically signed by Charlie Palumbo 06-03-2024 06:08 AM
[2024-06-03 07:38] LABS: Hematocrit (blood only) 50.9 % (42.0-52.0); Hemoglobin 17.3 g/dl (14.0-18.0); Mean Corpuscular Hemoglobin 29.1 pg (25.0-34.0); Mean Corpuscular Volume 85.7 fL (80.0-100.0); Mean Platelet Volume 10.5 fL (9.4-12.4); Platelet Count 184 K/uL (130-400); RDW Coefficient of Variation 15.2 % (11.5-14.5); RDW Standard Deviation 46.6 fL (36.4-46.3); Red Blood Count 5.94 M/uL (4.70-6.10); White Blood Count 11.56 K/ul (4.8-10.8)
[2024-06-03 07:48] LABS: BUN Creatinine Ratio 17.6 (10-20); Calcium 8.4 mg/dl (8.6-10.3); Creatinine Clr Calc Pharmacy 93.5 ml/min; Potassium 3.8 mmol/L (3.5-5.1)
[2024-06-03] MEDS: LANTUS PER UNIT CHARGE SQ ONE (09:26)
--- NOTE | 2024-06-03 13:36 | Pharmacy Report ---
Pharmacy Glycemic Short Note 2 - Date of Service June 03, 2024 - Glycemic Short BSG Results (Last 24 hours): 06/02/24 06/02/24 06/03/24 15:27 21:21 07:02 Glucose 126 H POC Glucose 101 H 201 H 06/03/24 06/03/24 07:30 11:13 Glucose POC Glucose 121 H 125 H OUTPATIENT ANTIDIABETIC REGIMEN: * Insulin glargine 50 units SC BID * Tirzepatide 7.5 mg SC weekly HbA1c: 7.6% (03/13/24) ASSESSMENT: 06/03 * Received 35 units of lantus yesterday- Fasting 121 mg/dL today-- will trial 30 units this morning * Prandial BSG within goal range today will continue with current novolog parameters * Continue to monitor 06/02 * MG is a 48 year old male who presents with acute exacerbation of HFrEF * Patient known to pharmacy glycemic consult service due to prior admissions/consults * Will utilize prior inpatient glycemic data to guide initial dosing * Current plan should provide ~50/50 basal/bolus split * Diet is ordered PLAN FOR INPATIENT GLYCEMIC CONTROL: * Hold outpatient diabetes medications * Basal insulin * Lantus 30 units SC this AM * Reassess in AM * Bolus insulin * NovoLog per scale ACHS or Q6hrs while NPO * Goal Range: Low 110 mg/dL - High 140 mg/dL * Correction Factor: 15 mg/dL/unit * Nutritional / Prandial insulin per carb ratio of 1 unit per 5 grams CHO consumed
--- NOTE | 2024-06-03 21:57 | Hospitalist Progress Note ---
Date of Service June 03, 2024 Assessment & Plan (1) Acute on chronic heart failure with reduced ejection fraction (HFrEF, <= 40%): (2) Non-sustained ventricular tachycardia: (3) Venous stasis dermatitis: (4) Type 2 diabetes mellitus with obesity: Plan 48-year-old male PMHx chronic respiratory failure, HFrEF, T2DM, MARIELENA, COPD, and history of noncompliance presenting to ED for worsening SOB starting the day prior to arrival. ED evaluation reveals no leukocytosis, stable H&H; normal PT/INR; VBG's with [id number], CMP chloride 109, glucose 146, calcium 8.5; troponin 23.9, pending repeat; BNP 872; bio fire pending; CXR with prominent hilar shadowing bronchovascular markings of both lung obrien to noted congestive changes, bilateral lower lung zone opacities, obscuring both costophrenic recesses, and cardiomegaly; EKG revealed sinus tachycardia with LAD and LAE at 105 bpm.; Provided with mag sulfate 1 g IV and torsemide 100 mg p.o. in ED. 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 On torsemide and spironolactone daily as outpatient; also on Entresto, metoprolol succinate, isosorbide mononitrate. Admits to compliance. With AICD in place, noted to have 7 beat run of V. tach in ED, with history of such. - Daily weights standing, I+Os - Echo 09/2023 EF 15 to 20%, severe global hypokinesis left ventricle, mild MR - no repeat at admission - BNP 872 - CXR prominent hilar shadow bronchovascular markings of both lung obrien noted congestive changes - Troponin 23.9, repeat 21.0; EKG sinus tachycardia without ischemic changes - no chest pain; demand - Continue Entresto and metoprolol; continue torsemide and spironolactone - Lasix 80 mg IV twice daily added at admission - adjust diuretics as appropriate -On 06/03, patient appears to be improving. WIll continue to diurese and monitor Labs appears stable. #Venous stasis dermatitis Rash bilateral LE, ongoing "for weeks" per patient. Prescribed triamcinolone and nystatin by PCP and to be followed with emollient moisturizer; states it gave him rash so d/c. Was also started on antibiotic (azithromycin) at that time (05/09/2024). No infectious symptoms. - CBC without leukocytosis; no fevers - Hydroxyzine prn for itching - If open area -- local wound care to avoid infection #T2DM H/o T2DM, home regimen includes glargine 50U twice daily, tirzepatide weekly, Farxiga daily. - Most recent A1C 02/2024 @ 7.6% - SSI with target BSG range 110-140mg/dL, CF 15, carb ratio 8 - Hold home insulin -- Lantus 35U BID (per last admission) - continue while inpatient - BSG ACHS - Pharm glycemic management consult placed, appreciate assistance - adjust regimen as needed #COPD H/o COPD, requires 5L O2 at baseline and CPAP nightly. Does not appear to be in exacerbation today. - Continue O2 - 5L NC - Continue home meds albuterol prn, budesonide neb/Symbicort or equivilant if NF #MARIELENA- BiPAP 16/ when sleeping/napping #HLD- Atorvastatin - continue Hernia noticeable on exam, not tender and not causing patient symptoms, however he is noticing it more. Most recent CTAP 08/2022 -- consider repeat imaging based on patient's clinical course Dispo: Admit, PCU VTE prophylaxis: Lovenox Admission and Anticipated Discharge Date Admission Date: June 02, 2024 Subjective Patient reports feeling better. He has no new complaints. Physical Exam Physical Exam: General: No acute distress, obese Skin: Warm and dry; chronic skin changes BLE, no open areas Head: Normocephalic, atraumatic Eyes: PERRL, conjunctivae clear, sclera non-icteric ENT: External ear and ear canal without swelling; Neck: Supple, no LAD Cardio: RRR, no M/G/R, S1 and S2 normal Resp: No respiratory distress, decreased breath sounds throughout; wearing O2 via NC Neuro: Awake, alert; Sensation intact bilaterally; CN grossly intact Psych: Appropriate mood and affect. Results & Data Results & Data Vital Signs (Past 12 Hours) Vital Signs Temp Pulse Pulse Resp BP Pulse Ox O2 Del Method 06/03/24 21:19 97/67 L 06/03/24 19:45 Nasal Cannula 06/03/24 19:20 36.6 C 76 16 106/68 95 Nasal Cannula 06/03/24 16:01 36.7 C 86 18 121/71 94 Room Air 06/03/24 15:06 80 06/03/24 11:13 36.4 C 77 18 111/69 97 Nasal Cannula O2 Flow Rate 06/03/24 21:19 06/03/24 19:45 5 06/03/24 19:20 5 06/03/24 16:01 06/03/24 15:06 06/03/24 11:13 PG Care Time/CCT Total # of Minutes Spent Total Time Spent with Patient: Total time spent is greater than 50% in coordination of care (as documented) at patient's floor/unit and/or counseling patient: Coding Level of Care Code 41068 SUB INP/OBS CARE 3/50MIN Diagnoses Acute on chronic heart failure with reduced ejection fraction (HFrEF, <= 40%) I50.23 Non-sustained ventricular tachycardia I47.29 Venous stasis dermatitis I87.2 Type 2 diabetes mellitus with obesity E11.69; E66.9
--- NOTE | 2024-06-04 03:51 | Communication Note ---
Date of Service: June 04, 2024 Purple code called due to chest pain and patient became unresponsive. BP normotensive, non tachycardic. Sat 96 on bipap Patient become responsive quickly. EKG: normal sinus, incomplete left branch block. T wave on lateral lead, unchanged from previous. Equal blood pressure on bilateral extremities. Chest pain reproducible. Blood glucose 121. Exam: Lungs- Decreased breath sound, no crackles. Mucosa dry. Labs ordered: : VBG, BMP, BNP, CBC, Mag and Troponin / Chest Xray Isosorbide and Entresto held early tonight due to hypotension. Lasix and spirono lactone were hold due to concern of intravascular depletion IV Ativan 0.25 mg given for muscle cramps Will continue to monitor [employer] Attestation (Dr Migue Laguna): I personally saw and examined the patient. I independently reviewed the labs, EKG, imaging, problem list, medication list, past medical history and family history. I verified all caraballo points and agree with resident physician Dr Va Casanova MD with the following exceptions and/or additions: Suspect IV diuresis speed was a little too fast with slight bump in his creatinine and muscle cramps (resolved by 5:30am after small dose of lorazepam given when reviewed again with currently eating breakfast). Will hold diuretics for now. His BP has improved and can continue on metoprolol XL and ISMN. I suspect we can resume his diuretics within the next 24-48 hours. This is not an unusual occurrence for Mr Huff as we suspect he is not taking his medications correctly as when we restart them during inpatient admissions he BP usually drops.
[2024-06-04 04:03] LABS: Base Excess VBG 3.1 mEq/L; HCO3 VBG 30 mmol/L; Oxygen Saturation VBG < 60.0 %; PCO2 VBG 56 mmHg (38-50); PO2 VBG 24 mmHg; pH VBG 7.34 (7.36-7.41)
[2024-06-04] MEDS: ACETAMINOPHEN 1,000 MG/100 ML VIAL IV STA (04:05)
[2024-06-04 04:11] LABS: Basophils # (auto) 0.05 K/uL (0.00-0.20); Basophils % (auto) 0.4 %; Eosinophils # (auto) 0.21 K/uL (0.00-0.50); Eosinophils % (auto) 1.8 %; Hemoglobin 16.8 g/dl (14.0-18.0); Immature Granulocytes # (auto) 0.09 K/uL (0.01-0.20); Immature Granulocytes % (auto) 0.8 %; Lymphocytes # (auto) 2.86 K/uL (1.20-3.40); Lymphocytes % (auto) 24.5 %; Mean Corpuscular Hemoglobin 29.1 pg (25.0-34.0); Mean Corpuscular Hgb Conc 33.6 g/dL (32.0-36.0); Mean Corpuscular Volume 86.5 fL (80.0-100.0); Mean Platelet Volume 9.9 fL (9.4-12.4); Monocytes # (auto) 1.13 K/uL (0.11-0.59); Monocytes % (auto) 9.7 %; Neutrophils # (auto) 7.31 K/uL (1.40-6.50); Neutrophils % (auto) 62.8 %; Nucleated RBC # (auto) 0.02 K/uL (0.00-0.12); Nucleated RBC % (auto) 0.2 %; Platelet Count 160 K/uL (130-400); RDW Coefficient of Variation 15.1 % (11.5-14.5); RDW Standard Deviation 47.4 fL (36.4-46.3); Red Blood Count 5.78 M/uL (4.70-6.10); White Blood Count 11.65 K/ul (4.8-10.8)
[2024-06-04 04:19] LABS: Albumin Level 3.6 gm/dl (3.4-5.0); Bilirubin,Total 0.9 mg/dl (0.2-1.0); Calcium 8.7 mg/dl (8.6-10.3); Magnesium 1.8 mg/dl (1.7-2.4); Potassium 3.8 mmol/L (3.5-5.1)
[2024-06-04 04:25] LABS: Albumin Globulin Ratio 1.1 (0.9-2); Creatinine Clr Calc Pharmacy 84.8 ml/min; Globulin 3.2 gm/dl (2.5-4.0); Total Protein 6.8 gm/dl (6.0-8.3)
[2024-06-04] MEDS: LORazepam 2 MG/1 ML VIAL IV STA (04:25)
[2024-06-04 04:30] LABS: Troponin I High Sensitivity 22.1 pg/ml (0-20)
--- NOTE | 2024-06-04 05:06 | XRay Report ---
EXAM: XR chest 1V portable CLINICAL HISTORY: hypoxia TECHNIQUE: Radiograph of chest was acquired. COMPARISON: 06/02/2024. FINDINGS: Ill-defined inhomogeneous soft tissue opacities seen in right lower zone; possibility of resolving inflammatory process likely. No evidence of pleural effusion on either side. Mild cardiomegaly. No acute osseous abnormality. Pacemaker noted in-situ. IMPRESSION: 1. Ill-defined inhomogeneous soft tissue opacities seen in right lower zone; possibility of resolving inflammatory process likely. Reduced as compared to previous chest x-ray dated 06/02/2024. 2. Mild cardiomegaly. Pacemaker in situ. Stable finding. Electronically signed by Charlie Palumbo 06-04-2024 05:06 AM
[2024-06-04 06:27] LABS: BUN Creatinine Ratio 22.9 (10-20); Calcium 8.6 mg/dl (8.6-10.3); Creatinine Clr Calc Pharmacy 89.1 ml/min; Potassium 3.7 mmol/L (3.5-5.1)
[2024-06-04 08:03] VITALS: RESP 20
[2024-06-04] MEDS: LANTUS PER UNIT CHARGE SQ SCH (08:53)
[2024-06-04 11:08] VITALS: TEMP 97.2; O2SAT 98
--- NOTE | 2024-06-04 12:20 | Pharmacy Report ---
Pharmacy Glycemic Short Note 2 - Date of Service June 04, 2024 - Glycemic Short BSG Results (Last 24 hours): 06/03/24 06/03/24 06/04/24 16:08 20:08 03:36 Glucose POC Glucose 89 131 H 124 H 06/04/24 06/04/24 06/04/24 03:55 05:33 07:13 Glucose 132 H 148 H POC Glucose 220 H 06/04/24 11:18 Glucose POC Glucose 117 H OUTPATIENT ANTIDIABETIC REGIMEN: * Insulin glargine 50 units SC BID * Tirzepatide 7.5 mg SC weekly HbA1c: 7.6% (03/13/24) ASSESSMENT: 06/04: * BSGs largely within goal the last 24h: 94-199-767-220mg/dL. Received 30 units of basal and 30 units of bolus insulin yesterday. * Tolerating diet, code purple this AM. * Fasting BSG elevated this AM to 220mg/dL however this is an outlier compared to previous trend (also had a brief unresponsive episode this AM). Will continue to monitor/trend for need to increase basal. Novolog carb ratio loosened slightly as prandial BSGs were on low end of goal range yesterday. 06/03 * Received 35 units of lantus yesterday- Fasting 121 mg/dL today-- will trial 30 units this morning * Prandial BSG within goal range today will continue with current novolog parameters * Continue to monitor 06/02 * MG is a 48 year old male who presents with acute exacerbation of HFrEF * Patient known to pharmacy glycemic consult service due to prior admissions/consults * Will utilize prior inpatient glycemic data to guide initial dosing * Current plan should provide ~50/50 basal/bolus split * Diet is ordered PLAN FOR INPATIENT GLYCEMIC CONTROL: * Hold outpatient diabetes medications * Basal insulin * Lantus 30 units SC this AM * Bolus insulin * NovoLog per scale ACHS or Q6hrs while NPO * Goal Range: Low 110 mg/dL - High 140 mg/dL * Correction Factor: 15 mg/dL/unit * Nutritional / Prandial insulin per carb ratio of 1 unit per 6 grams CHO consumed
--- NOTE | 2024-06-04 13:32 | Electrocardiogram Report ---
Test Reason : Blood Pressure : */* mmHG Vent. Rate : 68 BPM Atrial Rate : 68 BPM P-R Int : 184 ms QRS Dur : 116 ms QT Int : 452 ms P-R-T Axes : -1 -21 156 degrees QTcB Int : 480 ms Normal sinus rhythm Incomplete left bundle block QTcB >= 480 msec Abnormal ECG When compared with ECG of 02-Jun-2024 01:06, Vent. rate has decreased by 37 bpm T wave inversion more evident in Lateral leads Confirmed by Abraham Rosen [id number] on 06/04/2024 1:32:22 PM Referred By: REFERRED SELF Confirmed By: Abraham Rosen
[2024-06-04 15:49] VITALS: BP 100/65; PULSE 74
--- NOTE | 2024-06-06 10:45 | Discharge Summary ---
Discharge Summary Date of Service June 04, 2024 Principal Dx & Hospital Course #1 = Principal Diagnosis (1) Acute on chronic heart failure with reduced ejection fraction (HFrEF, <= 40%): (2) Non-sustained ventricular tachycardia: (3) Venous stasis dermatitis: (4) Type 2 diabetes mellitus with obesity: Plan 48-year-old male PMHx chronic respiratory failure, HFrEF, T2DM, MARIELENA, COPD, and history of noncompliance presenting to ED for worsening SOB starting the day prior to arrival. ED evaluation reveals no leukocytosis, stable H&H; normal PT/INR; VBG's with [id number], CMP chloride 109, glucose 146, calcium 8.5; troponin 23.9, pending repeat; BNP 872; bio fire pending; CXR with prominent hilar shadowing bronchovascular markings of both lung obrien to noted congestive changes, bilateral lower lung zone opacities, obscuring both costophrenic recesses, and cardiomegaly; EKG revealed sinus tachycardia with LAD and LAE at 105 bpm.; Provided with mag sulfate 1 g IV and torsemide 100 mg p.o. in ED. #Acute on chronic HFrEF/NSVT H/o HFrEF with LVEF 15 to 20%; presenting with worsening SOB today [employer], was not wearing normal O2. On torsemide and spironolactone daily as outpatient; also on Entresto, metoprolol succinate, isosorbide mononitrate. Admits to compliance. With AICD in place, noted to have 7 beat run of V. tach in ED, with history of such. - Daily weights standing, I+Os - Echo 09/2023 EF 15 to 20%, severe global hypokinesis left ventricle, mild MR - no repeat at admission - BNP 872 - CXR prominent hilar shadow bronchovascular markings of both lung obrien noted congestive changes - Troponin 23.9, repeat 21.0; EKG sinus tachycardia without ischemic changes - no chest pain; demand - Continue Entresto and metoprolol; continue torsemide and spironolactone - Patient responded to IV diuretics, PAtient is back to baseline. WIll discharge home. #Venous stasis dermatitis Rash bilateral LE, ongoing "for weeks" per patient. Prescribed triamcinolone and nystatin by PCP and to be followed with emollient moisturizer; states it gave him rash so d/c. Was also started on antibiotic (azithromycin) at that time (05/09/2024). No infectious symptoms. - CBC without leukocytosis; no fevers - Hydroxyzine prn for itching #T2DM H/o T2DM, home regimen includes glargine 50U twice daily, tirzepatide weekly, Farxiga daily. - Most recent A1C 02/2024 @ 7.6% - resume home meds #COPD H/o COPD, requires 5L O2 at baseline and CPAP nightly. Does not appear to be in exacerbation today. - Continue O2 - 5L NC - Continue home meds albuterol prn, budesonide neb/Symbicort or equivilant if NF #MARIELENA- BiPAP 27/09 when sleeping/napping #HLD- Atorvastatin - continue Hernia noticeable on exam, not tender and not causing patient symptoms, however he is noticing it more. Most recent CTAP 08/2022 -- consider repeat imaging based on patient's clinical course; will defer to PCP Admission HPI Per Admitting Provider 48-year-old male PMHx chronic respiratory failure, HFrEF, T2DM, MARIELENA, COPD, and history of noncompliance presenting to ED for worsening SOB starting the day prior to arrival. Patient reports that he was at the hospital visiting a friend and did not have his usual oxygen with him. When he was in the parking lot trying to get into his car he noted that he was more winded than normal and he decided to come in to be evaluated. Denies chest pain, palpitations, N/V/D/C, numbness/tingling, URI symtpoms, LUTS, F/C, weakness, or syncope. States that when he coughs he notices a hernia coming out and then it worries him but not having abdominal pain. BLE are itching per patient, no open areas noted. Reports that he is being compliant with his medications, denies changes in diet. Does not wear CPAP at night even though he is prescribed it; question of unable to get equipment vs cost limiting him. ED evaluation reveals no leukocytosis, stable H&H; normal PT/INR; VBG's with [id number], CMP chloride 109, glucose 146, calcium 8.5; troponin 23.9, pending repeat; BNP 872; bio fire pending; CXR with prominent hilar shadowing bronchovascular markings of both lung obrien to noted congestive changes, bilateral lower lung zone opacities, obscuring both costophrenic recesses, and cardiomegaly; EKG revealed sinus tachycardia with LAD and LAE at 105 bpm.; Provided with mag sulfate 1 g IV and torsemide 100 mg p.o. in ED. Discharge Exam General: No acute distress, obese Skin: Warm and dry; chronic skin changes BLE, no open areas Head: Normocephalic, atraumatic Eyes: PERRL, conjunctivae clear, sclera non-icteric ENT: External ear and ear canal without swelling; Neck: Supple, no LAD Cardio: RRR, no M/G/R, S1 and S2 normal Resp: No respiratory distress, clear, wearing O2 via NC Neuro: Awake, alert; Sensation intact bilaterally; CN grossly intact Psych: Appropriate mood and affect. Discharge Plan Discharge Items Patient Disposition: Home - Self-Care Reason For Visit: ACUTE HF Discharge Diagnosis: acute heart failure Activity: Resume your previous activity Non-emergency contact: Primary Care Provider Call non-emergency contact if: you have any medication questions Follow-up/Referrals: Gosia Martinez MD [Primary Care Provider] - 06/12/24 10:30 am (PCP follow up: 06/12/24 @ 10:30) Diet: Heart Healthy and Low Sodium (2gm) Addtl Attending Provider Instructions: Call 911 and go to the Emergency Room if: * You have tightness or pain in your chest that does not go away with rest or Nitroglycerin * You are very short of breath even with rest Call your doctor if any of the following symptoms or problems start or get worse: * Shortness of breath or difficulty breathing * Wake up at night short of breath * Chest pain * Cough * Swelling of your hands, fee, or legs * More fatigued or tired with your normal activity * Palpitations - sudden fast heart beats WEIGHT * Weigh yourself every morning after using the bathroom. * Use the same scale. * Wear the same amount of clothing. * Write your weight down on your chart. * Call your doctor if you gain more than 2-3 pounds in 1-2 days. MEDICATIONS * Use this discharge instruction sheet for instructions. * Take your medications at the time your doctor ordered. * Do not skip a dose of your medicines. * If you miss a dose of medicine, take as soon as possible, but DO NOT DOUBLE A DOSE. * Read your medicine information when you get home. * Know all of the side effects of your medicine. * Call your doctor's office if you have any side effects. * Be sure all of your doctors know what medicine and herbs you take (including cold, flu, and herbal medicine). * Pain Medicine: If you do not get relief from your pain, please call your doctor for help. Take the following with you to your follow-up doctor appointments: * Weight Chart * Medication List * List of questions Do not drink excessive alcohol, beer or wine. Pending Studies at Discharge: No Stand-Alone Forms: [employer], Smoking Cessation Medications and DC Order Prescriptions: Continued (DME) FreeStyle Karla 3 [place] Misc See Rx Instructions .Route Qty: 1 1RF Rx Instructions: moniotr blood sugar (DME) FreeStyle Karla 3 [place] Misc See Rx Instructions .ROUTE .MEDSUPPLY Qty: 1 0RF Rx Instructions: use with karla 3 + sensor tirzepatide 7.5 mg/0.5 mL pen injector 7.5 mg subcut Q7D 30 Days Qty: 2 3RF Rx Instructions: WEDNESDAYS (DME) pen needle, diabetic [Comfort EZ Pen [place]] 31 gauge x 5/16" needle See Rx Instructions .Route Qty: 100 3RF Rx Instructions: use when administering insuling daily budesonide 0.25 mg/2 mL suspension for nebulization 0.25 mg inhalation DAILY PRN (Reason: Shortness Of Breath) budesonide-formoterol [Symbicort] 160-4.5 mcg/actuation HFA aerosol inhaler 2 inh inhalation BID Qty: 3 3RF Rx Instructions: 2 puffs twice per day. Rinse mouth after each use (DME) OneTouch Verio test strips Strip See Rx Instructions miscellaneous .MEDSUPPLY Qty: 100 5RF Rx Instructions: check 3x a day (DME) lancets [OneTouch Delica Plus Lancet] 30 gauge misc See Rx Instructions .ROUTE .MEDSUPPLY Qty: 100 5RF Rx Instructions: use new lancet 3x a day (DME) blood-glucose meter [OneTouch Verio Flex meter] Misc See Rx Instructions .ROUTE .MEDSUPPLY Qty: 1 0RF Rx Instructions: As directed hydroxyzine HCl 25 mg tablet 25 mg PO TID PRN (Reason: itching) Qty: 90 1RF (DME) FreeStyle Karla 3 Plus Sensor Device See Rx Instructions .ROUTE .MEDSUPPLY Qty: 2 11RF Rx Instructions: change sensor every 15 days (DME) Oxygen Home Liters Per Minute See Rx Instructions .MEDSUPPLY Qty: 1 0RF Rx Instructions: Home Oxygen concentrator with portability, test for conserving device. 2-4LMP via n/c at rest/sleep and 2-4 LPM via n/c with exertion; VÍCTOR 99. atorvastatin 10 mg tablet 10 mg PO DAILY Qty: 90 3RF nystatin 100,000 unit/gram powder 1 applic topical BID PRN (Reason: Skin Irritation) Qty: 60 0RF insulin glargine 100 unit/mL (3 mL) insulin pen 50 unit subcut BID triamcinolone acetonide 0.025 % cream 1 applic topical TID PRN (Reason: rash) Qty: 454 0RF isosorbide mononitrate 60 mg tablet extended release 24 hr 60 mg PO DAILY Qty: 90 1RF metoprolol succinate 100 mg tablet extended release 24 hr 100 mg PO BID Qty: 180 1RF dapagliflozin propanediol [Farxiga] 10 mg tablet 10 mg PO DAILY Qty: 90 1RF Entresto 97-103 mg tablet 1 tab PO BID Qty: 180 1RF torsemide 100 mg tablet 100 mg PO BID Qty: 180 1RF Rx Instructions: 100 mg orally twice a day; nitroglycerin [Nitrostat] 0.4 mg tablet, sublingual 0.4 mg sublingual UD PRN (Reason: Chest Pain) aspirin [Neisha Low Dose Aspirin] 81 mg tablet,delayed release (DR/EC) 81 mg PO QAM albuterol sulfate 2.5 mg /3 mL (0.083 %) solution for nebulization 2.5 mg inhalation Q6H PRN (Reason: Shortness Of Breath Or Wheezing) Rx Instructions: Use every 6 hours as needed with nebulizer albuterol sulfate 90 mcg/actuation HFA aerosol inhaler 1 inh inhalation QID PRN (Reason: Shortness Of Breath Or Wheezing) lidocaine 5 % adhesive patch,medicated 1 patch topical DAILY PRN (Reason: Pain) trolamine salicylate [Myoflex] 10 % Cream 1 applic EXT BID PRN (Reason: left sided neck pain) Qty: 35.4 0RF Rx Instructions: Please give tube from hospital spironolactone 50 mg tablet 50 mg PO BID Qty: 60 0RF metoprolol succinate 25 mg tablet extended release 24 hr 25 mg PO BID Qty: 60 0RF Rx Instructions: Total dose is 125 mg twice daily Discharge Orders: Discharge Order (Routine); Ordered 06/04/24 Ordered By: Shemar Sky Admission Data Admit Date/Time: 06/02/24 05:48 Attending Provider: Shemar Sky Admit Provider: Migue Laguna Primary Care Provider: Gosia Martinez Other Providers: Va Rivas Other Interventions: Discharge Summary Assessment (RN) Last Done: 06/04/24 16:24 Hospital Stay Data Consultations 06/02/24 04:46 ED Decision to Admit Stat Diagnostic Imagining Performed 06/03/24 US venous doppler LE BI Routine Pending Results Patient Have Any Pending Studies at Discharge: No Discharge Instructions Given to Patient (Per Discharging Provider) Call 911 and go to the Emergency Room if: * You have tightness or pain in your chest that does not go away with rest or Nitroglycerin * You are very short of breath even with rest Call your doctor if any of the following symptoms or problems start or get worse: * Shortness of breath or difficulty breathing * Wake up at night short of breath * Chest pain * Cough * Swelling of your hands, fee, or legs * More fatigued or tired with your normal activity * Palpitations - sudden fast heart beats WEIGHT * Weigh yourself every morning after using the bathroom. * Use the same scale. * Wear the same amount of clothing. * Write your weight down on your chart. * Call your doctor if you gain more than 2-3 pounds in 1-2 days. MEDICATIONS * Use this discharge instruction sheet for instructions. * Take your medications at the time your doctor ordered. * Do not skip a dose of your medicines. * If you miss a dose of medicine, take as soon as possible, but DO NOT DOUBLE A DOSE. * Read your medicine information when you get home. * Know all of the side effects of your medicine. * Call your doctor's office if you have any side effects. * Be sure all of your doctors know what medicine and herbs you take (including cold, flu, and herbal medicine). * Pain Medicine: If you do not get relief from your pain, please call your doctor for help. Take the following with you to your follow-up doctor appointments: * Weight Chart * Medication List * List of questions Do not drink excessive alcohol, beer or wine. Total Time Total Time Spent Total Time Spent (In Minutes): 32 Coding Level of Care Code 78697 INP/OBS DISCH >30 MIN Diagnoses Acute on chronic heart failure with reduced ejection fraction (HFrEF, <= 40%) I50.23 Non-sustained ventricular tachycardia I47.29 Venous stasis dermatitis I87.2 Type 2 diabetes mellitus with obesity E11.69; E66.9
== END 2024-06-04 17:45 | disposition home or self-care (01) | DRG 291 ==
LOC: SUATTDRO → ED 00:56 → SUATTDRO 05:48 → INTOOBSV 05:48 → EDINP 05:48 → 2E 08:49

== ENCOUNTER 2024-06-12 21:06 | Observation (INO) ==
[2024-06-12 21:43] LABS: Base Excess VBG -1.4 mEq/L; HCO3 VBG 23 mmol/L; Oxygen Saturation VBG 88.8 %; PCO2 VBG 36 mmHg (38-50); PO2 VBG 56 mmHg; pH VBG 7.41 (7.36-7.41)
[2024-06-12 21:57] LABS: Basophils # (auto) 0.02 K/uL (0.00-0.20); Basophils % (auto) 0.3 %; Eosinophils # (auto) 0.17 K/uL (0.00-0.50); Eosinophils % (auto) 2.3 %; Hemoglobin 14.6 g/dl (14.0-18.0); Immature Granulocytes # (auto) 0.03 K/uL (0.01-0.20); Immature Granulocytes % (auto) 0.4 %; Lymphocytes # (auto) 1.64 K/uL (1.20-3.40); Lymphocytes % (auto) 21.8 %; Mean Corpuscular Hemoglobin 29.3 pg (25.0-34.0); Mean Corpuscular Volume 86.2 fL (80.0-100.0); Mean Platelet Volume 10.3 fL (9.4-12.4); Monocytes # (auto) 0.53 K/uL (0.11-0.59); Neutrophils # (auto) 5.13 K/uL (1.40-6.50); Neutrophils % (auto) 68.2 %; Platelet Count 149 K/uL (130-400); RDW Coefficient of Variation 14.7 % (11.5-14.5); RDW Standard Deviation 46.5 fL (36.4-46.3); Red Blood Count 4.99 M/uL (4.70-6.10); White Blood Count 7.52 K/ul (4.8-10.8)
[2024-06-12 22:17] LABS: Alanine Aminotransferase 14 U/L (7-52); Albumin Globulin Ratio 1.1 (0.9-2); Albumin Level 3.6 gm/dl (3.4-5.0); Alkaline Phosphatase 87 U/L (34-104); Anion Gap 6 (3-11); Aspartate Aminotransferase 18 U/L (13-39); Bilirubin,Total 0.9 mg/dl (0.2-1.0); Blood Urea Nitrogen 16 mg/dl (6-23); Calcium 8.8 mg/dl (8.6-10.3); Carbon Dioxide 24 mmol/L (21-32); Chloride 110 mmol/L (98-107); Globulin 3.3 gm/dl (2.5-4.0); Glucose 172 mg/dl (70-99(Fasting)); Magnesium 1.4 mg/dl (1.7-2.4); Potassium 3.8 mmol/L (3.5-5.1); Sodium 140 mmol/L (136-145); Total Protein 6.9 gm/dl (6.0-8.3)
[2024-06-12 22:23] LABS: Troponin I High Sensitivity 21.6 pg/ml (0-20)
--- NOTE | 2024-06-12 22:28 | Emergency Department Note ---
ED DC CONDITION Conditon at Discharge Condition at Discharge: Good Impression & Plan Acute exacerbation of CHF (congestive heart failure), Hypomagnesemia, Elevated brain natriuretic peptide (BNP) level, Elevated troponin ED Provider Note HISTORY OF PRESENT ILLNESS: Patient is a 48-year-old male presenting with shortness of breath. Patient reports that he was called by a nurse at [facility] and told to present to the emergency department for admission secondary to him having significant weight gain. Patient reports that he weighed about 310 pounds after he left the hospital recently on discharge, but states that he is now up to 330. He reports that he can only walk about 5 steps before he becomes very winded and has to stop and sit down. He denies any lower extremity edema. Denies any chest pain. He states that he has been taking his medications as prescribed, but "I am just still filling up with fluid." Denies any recent fevers or chills. He has had a persistent cough. ROS: as above PHYSICAL EXAM: Constitutional: Patient appears in no acute distress. Morbidly obese HENT: Head: Normocephalic and atraumatic. Eyes: EOMI, PERRL Mouth/Throat: Mucous membranes moist. Neck: Trachea midline. Neck supple. Cardiovascular: Tachycardic with regular rhythm. No murmurs, rubs or gallops. Intact distal pulses. Pulmonary/Chest: No respiratory distress. Breath sounds clear and equal bilaterally. No wheezes or rales. Abdominal: Abdomen soft, no tenderness, rebound or guarding. Musculoskeletal: No edema, tenderness or deformity noted. Skin: Warm and dry. No rash, erythema, pallor or cyanosis Psychiatric: Appropriate mood and affect for situation. Neurological: Alert and keenly responsive. CN II-XII grossly intact, moving all extremities equally and fully. MDM: - Vitals signs showed hypertension and tachycardia. - History obtained via patient. History as above. - Chronic conditions affecting care: HFrEF; DM-2; MARIELENA; chronic respiratory failure (on 4L NC at baseline) - Differential diagnoses include, but are not limited to: Congestive heart failure; acute coronary syndrome; COPD/asthma exacerbation; pulmonary edema; pulmonary embolism; pneumonia; pneumothorax; viral syndrome - Order placed for continuous cardiac monitoring. At this time, monitor showed rate of 100 bpm with normal sinus rhythm, per my interpretation. - External medical records reviewed. Discharge summary dated was reviewed. Patient was admitted to the hospital at that time secondary to heart failure. He had an EF of 15 to 20% - EKG image interpreted by myself showed normal sinus rhythm. Rate tachycardic at 106 bpm. QT 364. No acute ischemic changes. - Laboratory workup interpreted by myself showed normal WBC; stable electrolytes other than hypomagnesemia (Mg 1.4); slightly elevated troponin (21.6); elevated BNP (1092) - VBG grossly normal - CXR image reviewed by myself shows pulmonary edema, per my interpretation. - Patient given 40 mg IV lasix in ER. Given 1g IV magnesium for electrolyte replacement - Discussion was had with classification case manager about patient's case and need for admission - Hospitalist, Dr. Laguna, consulted for admission - [facility] ASSESSMENT AND PLAN: Diagnosis: Acute exacerbation of CHF; hypomagnesemia; elevated BNP; elevated troponin Plan: admit Past Med/Surg History Problem List (Updated 06/12/24 @ 23:29 by Lexus Santana MD) Elevated troponin (Acute) Elevated brain natriuretic peptide (BNP) level (Acute) Hypomagnesemia (Acute) Acute exacerbation of CHF (congestive heart failure) (Acute) Venous stasis dermatitis Non-sustained ventricular tachycardia (Acute) Pulmonary edema (Acute) Lightheadedness (Acute) Dyspnea (Acute) Chronic respiratory failure with hypoxia Acute on chronic heart failure with reduced ejection fraction (HFrEF, <= 40%) Type 2 diabetes mellitus with microalbuminuria Periapical abscess Pulmonary edema (Acute) Hypomagnesemia (Acute) Type 2 diabetes mellitus with peripheral neuropathy Type 2 diabetes mellitus with obesity Diabetic peripheral neuropathy Non-proliferative diabetic retinopathy, both eyes Uncontrolled diabetes mellitus with hyperglycemia Chronic respiratory failure Normocytic anemia Hypertension (Chronic) Poor intravenous access Morbid obesity with BMI of 50.0-59.9, adult Chronic anticoagulation Diabetes mellitus type II, uncontrolled (Chronic) Urinary bladder incontinence Hx of local infection of skin and subcutaneous tissue Ambulatory dysfunction (Chronic) Recurrent infection of skin Pulmonary nodule V tach (Acute) HFrEF (heart failure with reduced ejection fraction) Hemoptysis (Acute) Vitamin D deficiency Medical History Non-sustained ventricular tachycardia Obstructive sleep apnea NICM (nonischemic cardiomyopathy) Pt admitted for elective ICD. Underwent procedure without any complications monitored over night and discharged home. Combined systolic and diastolic heart failure Nonischemic cardiomyopathy, unclear etiology. Difficult to manage. Integrated into heart failure clinic. Frequent admissions for heart failure exacerbations. Echo (05/31) EF=25-30% with mod to severe global hypokinesis, basal kelsi-septal akinetic wall, LVH, RVSP elevated at 30-40mmHg, and mod dilated ascending aorta. Managed medically with ASA + BB + ARB/Neprilysin inhibitor (Entresto) + high dose furosemide (160mg BID) + metolazone (3x weekly). Considering ICD given EF. COPD (chronic obstructive pulmonary disease) Hypomagnesemia Medical non-compliance Intellectual disability Chronic dental pain Small bowel obstruction Housing instability, currently housed, at risk for homelessness Hearing loss of both ears Nonproliferative retinopathy due to secondary diabetes Dilatation of thoracic aorta Iliac aneurysm Vitamin D insufficiency Previously deficient, taking Vit D supplementation Umbilical hernia Lung nodule Fatty liver Surgical History AICD (automatic cardioverter/defibrillator) present H/O oral surgery History of carpal tunnel surgery S/P tonsillectomy History of cholecystectomy Family History Father , age 57 of an AK. Heart disease Myocardial infarction Mother , age 67 of a ruptured neck vessel Sudden Other Depression Lung disease No pertinent family history Denies family history of Ovarian cancer Prostate cancer Breast cancer Colorectal cancer Social History Smoking Status: Current every day smoker Tobacco Type: Cigarettes Age Started Using Tobacco: 14; Age Quit Using Tobacco: 18; packs per day: 1; Cigarettes Per Day: 2 PPD; Second Hand Exposure: No; Do You Dip or Chew Tobacco: No; Hx Alcohol Use: No Hx Substance Use: No Preferred Language: Upper Sorbian Communication Ability: Effective Visual Impairment: No Limitations Hearing Ability: Normal American History Teacher Required: No Beliefs That Will Affect Care: None marital status: Current Living Situation: Family Current Living Situation Comment: Lives at home with current occupational status: unemployed How many Children do You have: 0 Feels Safe at Home: Yes Childhood Exposure to Second-Hand Smoke: Yes Dental Care, Regularly: Yes Physical Activity Frequency: Does not Exercise Seatbelt Use: never Sunscreen Use: No Assistive Devices: Oxygen - Continuous and Walker Allergies Allergies Allergy/AdvReac Type Severity Reaction Status Date / Time albuterol Allergy Severe proair Verified 06/02/24 01:54 "trouble taking breaths" ceftriaxone Allergy Severe SHORTNESS Verified 06/02/24 01:54 OF BREATH lidocaine Allergy Severe SHORTNESS Verified 06/02/24 01:54 OF BREATH, diaphoretic, hives mushroom Allergy Severe Anaphylaxis Verified 06/02/24 01:54 procaine Allergy Severe SHORTNESS Verified 06/02/24 01:54 OF BREATH, diaphoretic, hives amoxicillin Allergy Intermediate HIVES/FACIAL Verified 06/02/24 01:54 SWELLING clavulanic acid Allergy Intermediate HIVES/FACIAL Verified 06/02/24 01:54 SWELLING lisinopril Allergy Intermediate HIVES Verified 06/02/24 01:54 shellfish derived Allergy Unknown Unknown Verified 06/02/24 01:54 acetaminophen AdvReac Mild NAUSEA Verified 06/02/24 01:54 Fish Containing Products AdvReac Unknown Unknown Verified 06/02/24 01:54 Home Meds Home Medications Medication Instructions Recorded Confirmed nitroglycerin 0.4 mg sublingual 0.4 mg sublingual UD PRN Chest Pain 04/24/19 06/12/24 tablet (Nitrostat) aspirin 81 mg tablet,delayed 81 mg PO QAM 06/16/21 06/12/24 release (Neisha Low Dose Aspirin) albuterol sulfate 2.5 mg/3 mL 2.5 mg inhalation Q6H PRN 12/02/21 06/12/24 (0.083 %) solution for nebulization Shortness Of Breath Or Wheezing budesonide 0.25 mg/2 mL suspension 0.25 mg inhalation DAILY PRN 09/15/22 06/12/24 for nebulization Shortness Of Breath albuterol sulfate 90 mcg/actuation 1 inh inhalation QID PRN Shortness 10/12/23 06/12/24 aerosol inhaler Of Breath Or Wheezing lidocaine 5 % topical patch 1 patch topical DAILY PRN Pain 11/03/23 06/12/24 insulin glargine 100 unit/mL (3 50 unit subcut BID 03/17/25 05/01/25 mL) subcutaneous pen Previous Rx's Medication Instructions Recorded blood-glucose meter (OneTouch #1 ea 10/12/22 Verio Flex Meter) lancets 30 gauge (OneTouch Delica #100 ea 10/12/22 Plus Lancet) Symbicort 160 mcg-4.5 2 inh inhalation BID #3 Inhalers 11/14/22 mcg/actuation HFA aerosol inhaler (budesonide-formoterol) blood sugar diagnostic (OneTouch #100 ea 01/17/23 Verio test strips) pen needle, diabetic 31 gauge x #100 ea 02/16/23/16" (Comfort EZ Pen [place]) hydroxyzine HCl 25 mg tablet 25 mg PO TID PRN itching #90 tabs 05/31/23 trolamine salicylate 10 % topical 1 applic EXT BID PRN left sided 11/06/23 cream (Myoflex) neck pain #35.4 grams blood-glucose sensor (FreeStyle #2 ea 12/13/23 Karla 3 Plus Sensor device) blood-glucose,yarn examiner skeins,cont #1 ea 01/14/24 (FreeStyle Karla 3 [place]) blood-glucose,yarn examiner skeins,cont #1 ea 01/14/24 (FreeStyle Karla 3 [place]) atorvastatin 10 mg tablet 10 mg PO DAILY #90 tabs 02/04/24 Farxiga 10 mg tablet 10 mg PO DAILY #90 tabs 04/28/24 (dapagliflozin propanediol) isosorbide mononitrate 60 mg 60 mg PO DAILY #90 tabs 04/28/24 tablet,extended release 24 hr metoprolol succinate 100 mg 100 mg PO BID #180 tabs 04/28/24 tablet,extended release 24 hr sacubitril 97 mg-valsartan 103 mg 1 tab PO BID #180 tabs 04/28/24 tablet (Entresto) torsemide 100 mg tablet 100 mg PO BID #180 tabs 04/28/24 triamcinolone acetonide 0.025 % 1 applic topical TID PRN rash #454 04/28/24 topical cream grams nystatin 100,000 unit/gram topical 1 applic topical BID PRN Skin 05/09/24 powder Irritation #60 grams tirzepatide 7.5 mg/0.5 mL 7.5 mg (0.5 mL) subcut Q7D 30 days 05/09/24 subcutaneous pen injector #2 mL metoprolol succinate 25 mg 25 mg PO BID #60 tabs 05/26/24 tablet,extended release 24 hr spironolactone 50 mg tablet 50 mg PO BID #60 tabs 05/26/24 Oxygen Home #1 ea 05/29/24 Results & Data (ED) Vital Signs Vital Signs - 24 hr 06/12/24 21:11 06/12/24 21:29 06/12/24 22:32 Temperature 36.8 C Temperature Source Oral Pulse Rate 111 H 108 H Pulse Rate [Left Finger] 98 H Pulse Rhythm Regular Pulse Strength Normal Respiratory Rate 24 19 Respiratory Effort / Characteristics Non-Labored Spontaneous Non-Labored Spontaneous Respiratory Depth Normal Normal Blood Pressure 169/105 H Blood Pressure [Left Arm] 159/114 H Blood Pressure Mean 126 Blood Pressure Mean [Left Arm] 129 Blood Pressure Position Sitting Pulse Oximetry 92 97 Oxygen Delivery Method Nasal Cannula Nasal Cannula Oxygen Flow Rate 4 Sepsis Recent Fever Within 48 Hours No Sepsis New/Unexplained Change in Mental Status N/A Sepsis Action Taken by Nursing No Action Required Laboratory Data 06/12/24 21:30 06/12/24 21:30 Lab Results 06/12/24 Range/Units 21:30 WBC 7.52 (4.8-10.8) K/ul RBC 4.99 (4.70-6.10) M/uL Hgb 14.6 (14.0-18.0) g/dl Hct 43.0 (42.0-52.0) % MCV 86.2 (80.0-100.0) fL MCH 29.3 (25.0-34.0) pg MCHC 34.0 (32.0-36.0) g/dL RDW Std Deviation 46.5 H (36.4-46.3) fL RDW Coeff of Zoltan 14.7 H (11.5-14.5) % Plt Count 149 (130-400) K/uL MPV 10.3 (9.4-12.4) fL Immature Gran % (Auto) 0.4 % Neut % (Auto) 68.2 % Lymph % (Auto) 21.8 % [place] % (Auto) 7.0 % Eos % (Auto) 2.3 % Baso % (Auto) 0.3 % Neut # (Auto) 5.13 (1.40-6.50) K/uL Lymph # (Auto) 1.64 (1.20-3.40) K/uL [place] # (Auto) 0.53 (0.11-0.59) K/uL Eos # (Auto) 0.17 (0.00-0.50) K/uL Baso # (Auto) 0.02 (0.00-0.20) K/uL Immature Gran # (Auto) 0.03 (0.01-0.20) K/uL VBG pH 7.41 (7.36-7.41) VBG pCO2 36 L (38-50) mmHg VBG pO2 56 mmHg VBG HCO3 23 mmol/L VBG O2 Saturation 88.8 % VBG Base Excess -1.4 mEq/L Sodium 140 (136-145) mmol/L Potassium 3.8 (3.5-5.1) mmol/L Chloride 110 H (98-107) mmol/L Carbon Dioxide 24 (21-32) mmol/L Anion Gap 6 (3-11) BUN 16 (6-23) mg/dl Creatinine 1.00 (0.6-1.4) mg/dl Est Cr Clr Drug Dosing Not Reportable eGFR 93.42 BUN/Creatinine Ratio 16.0 (10-20) Glucose 172 H (70-99(Fasting)) mg/dl Calcium 8.8 (8.6-10.3) mg/dl Magnesium 1.4 L (1.7-2.4) mg/dl Total Bilirubin 0.9 (0.2-1.0) mg/dl AST 18 (13-39) U/L ALT 14 (7-52) U/L Alkaline Phosphatase 87 (34-104) U/L Troponin I High Sens 21.6 H (0-20) pg/ml B-Natriuretic Peptide 1092 H (0-100) pg/ml Total Protein 6.9 (6.0-8.3) gm/dl Albumin 3.6 (3.4-5.0) gm/dl Globulin 3.3 (2.5-4.0) gm/dl Albumin/Globulin Ratio 1.1 (0.9-2) Administered Medications Discontinued Medications Furosemide (Furosemide 40 Mg/4 Ml Vial) 40 mg IV ONE ONE Stop: 06/12/24 23:08 Last Admin: 06/12/24 23:19 Dose: 40 mg Documented By: CTK Discharge Plan Visit Data Chief Complaint: Referred by Doctor Stated Complaint: REF BY DOC,FLUID REGAIN ED Provider: Lexus Santana Discharge Problem: Acute exacerbation of CHF (congestive heart failure), Hypomagnesemia, Elevated brain natriuretic peptide (BNP) level, Elevated troponin Patient Disposition: Admitted As Inpatient Condition: Good Forms Stand Alone Forms: Quill Content Prescriptions Prescriptions: No Action (DME) FreeStyle Karla 3 [place] Misc See Rx Instructions .Route Qty: 1 1RF Rx Instructions: moniotr blood sugar (DME) FreeStyle Karla 3 [place] Misc See Rx Instructions .ROUTE .MEDSUPPLY Qty: 1 0RF Rx Instructions: use with karla 3 + sensor tirzepatide 7.5 mg/0.5 mL pen injector 7.5 mg subcut Q7D 30 Days Qty: 2 3RF Rx Instructions: [place] (DME) pen needle, diabetic [Comfort EZ Pen [place]] 31 gauge x 5/16" needle See Rx Instructions .Route Qty: 100 3RF Rx Instructions: use when administering insuling daily budesonide 0.25 mg/2 mL suspension for nebulization 0.25 mg inhalation DAILY PRN (Reason: Shortness Of Breath) budesonide-formoterol [Symbicort] 160-4.5 mcg/actuation HFA aerosol inhaler 2 inh inhalation BID Qty: 3 3RF Rx Instructions: 2 puffs twice per day. Rinse mouth after each use (DME) OneTouch Verio test strips Strip See Rx Instructions miscellaneous .MEDSUPPLY Qty: 100 5RF Rx Instructions: check 3x a day (DME) lancets [OneTouch Delica Plus Lancet] 30 gauge misc See Rx Instructions .ROUTE .MEDSUPPLY Qty: 100 5RF Rx Instructions: use new lancet 3x a day (DME) blood-glucose meter [OneTouch Verio Flex meter] Mis See Rx Instructions .ROUTE .MEDSUPPLY Qty: 1 0RF Rx Instructions: As directed hydroxyzine HCl 25 mg tablet 25 mg PO TID PRN (Reason: itching) Qty: 90 1RF (DME) FreeStyle Karla 3 Plus Sensor Device See Rx Instructions .ROUTE .MEDSUPPLY Qty: 2 11RF Rx Instructions: change sensor every 15 days (DME) Oxygen Home Liters Per Minute See Rx Instructions .MEDSUPPLY Qty: 1 0RF Rx Instructions: Home Oxygen concentrator with portability, test for conserving device. 2-4LMP via n/c at rest/sleep and 2-4 LPM via n/c with exertion; VÍCTOR 99. atorvastatin 10 mg tablet 10 mg PO DAILY Qty: 90 3RF nystatin 100,000 unit/gram powder 1 applic topical BID PRN (Reason: Skin Irritation) Qty: 60 0RF insulin glargine 100 unit/mL (3 mL) insulin pen 50 unit subcut BID triamcinolone acetonide 0.025 % cream 1 applic topical TID PRN (Reason: rash) Qty: 454 0RF isosorbide mononitrate 60 mg tablet extended release 24 hr 60 mg PO DAILY Qty: 90 1RF metoprolol succinate 100 mg tablet extended release 24 hr 100 mg PO BID Qty: 180 1RF dapagliflozin propanediol [Farxiga] 10 mg tablet 10 mg PO DAILY Qty: 90 1RF Entresto 97-103 mg tablet 1 tab PO BID Qty: 180 1RF torsemide 100 mg tablet 100 mg PO BID Qty: 180 1RF Rx Instructions: 100 mg orally twice a day; nitroglycerin [Nitrostat] 0.4 mg tablet, sublingual 0.4 mg sublingual UD PRN (Reason: Chest Pain) aspirin [Neisha Low Dose Aspirin] 81 mg tablet,delayed release (DR/EC) 81 mg PO QAM albuterol sulfate 2.5 mg /3 mL (0.083 %) solution for nebulization 2.5 mg inhalation Q6H PRN (Reason: Shortness Of Breath Or Wheezing) Rx Instructions: Use every 6 hours as needed with nebulizer albuterol sulfate 90 mcg/actuation HFA aerosol inhaler 1 inh inhalation QID PRN (Reason: Shortness Of Breath Or Wheezing) lidocaine 5 % adhesive patch,medicated 1 patch topical DAILY PRN (Reason: Pain) trolamine salicylate [Myoflex] 10 % Cream 1 applic EXT BID PRN (Reason: left sided neck pain) Qty: 35.4 0RF Rx Instructions: Please give tube from hospital spironolactone 50 mg tablet 50 mg PO BID Qty: 60 0RF metoprolol succinate 25 mg tablet extended release 24 hr 25 mg PO BID Qty: 60 0RF Rx Instructions: Total dose is 125 mg twice daily Referrals Referrals: Gosia Martinez MD [Primary Care Provider] -
[2024-06-12] MEDS: FUROSEMIDE 40 MG/4 ML VIAL IV ONE (23:19)
--- NOTE | 2024-06-12 23:22 | History & Physical Report ---
Date of Service June 12, 2024 Assessment & Plan (1) Acute on chronic heart failure with reduced ejection fraction (HFrEF, <= 4 0%): (2) Chronic respiratory failure with hypoxia: (3) Type 2 diabetes mellitus with microalbuminuria: Plan 48 year old male well known to the service with chronic heart failure with reduced ejection fraction presents to the ER with increased weight and shortness of breath after reccent discharge for acute on chronic HFrEF discharged on June 04. Known history of non compliance. #Acute on chronic heart failure with reduced ejection fraction / Hypomagnesemia BNP increased from 71 to 1092 Echo 09/2023 with LVEF 15-20%. Unclear cause of exacerbation but compliance has been an issue in the past, he also request to discuss with chemistry manager regarding salt intake, will also get pacemaker/ICD check to see if he has been having incr eased runs on VT Switch torsemide to Lasix 80 mg IV BID. Of note last admission he became clinically dry causing hypotension but he was being given torsemide and Lasix initially for the first 24 hours. Continue spironolactone, metoprolol succinate and Entresto at his usual dosing Switch Farxiga to Jardiance per hospital formulary Strict I's and O's, daily standing weights BiPAP HS Mg sulfate 3g IV, repeat level with AM labs #Type 2 diabetes On Lantus 50 units BID as an outpatient however inpatient usually requires 30 to 35 units Lantus Will continue his usual inpatient dosing with Lantus 30 units QAM NovoLog - correction factor 15, carb ratio 5 HbA1c with a.m. labs #Chronic hypoxic respiratory failure Baseline 5LPM O2, aim O2 sats > 88% VTE Prophylaxis - chemical prophylaxis deferred due to significant abdominal ecchymosis, SCDs, encourage ambulation Diet - low Na, heart healthy, T2DM Disposition - admit to PCU Admission and Anticipated Discharge Date Admission Date: June 12, 2024 History of Present Illness Chief Complaint: Shortness of breath Primary Care Provider: Gosia Martinez MD Alok Huff is a 48 year old male well known to the service with repeated hospitalizations for non ischemic cardiomyopathy causing acute on chronic HFrEF who presents to the ER with shortness of breath and weight gain. He was most recently discharged on June 04 with HFrEF after not wearing his oxygen while visiting someone at the hospital. He was initially doing well on discharge and weight continued to decrease but over the last 48 hours his weight dramatically increased 20lb with associated shortness of breath on exertion. No chest pain. He reports taking medications as prescribed without increased fluid or salt intake although he has notably had some issues with compliance in the past. Last echocardiogram in September 2023 with LVEF 15-20%. Allergies Allergy/AdvReac Type Severity Reaction Status Date / Time albuterol Allergy Severe proair Verified 06/02/24 01:54 "trouble taking breaths" ceftriaxone Allergy Severe SHORTNESS Verified 06/02/24 01:54 OF BREATH lidocaine Allergy Severe SHORTNESS Verified 06/02/24 01:54 OF BREATH, diaphoretic, hives mushroom Allergy Severe Anaphylaxis Verified 06/02/24 01:54 procaine Allergy Severe SHORTNESS Verified 06/02/24 01:54 OF BREATH, diaphoretic, hives amoxicillin Allergy Intermediate HIVES/FACIAL Verified 06/02/24 01:54 SWELLING clavulanic acid Allergy Intermediate HIVES/FACIAL Verified 06/02/24 01:54 SWELLING lisinopril Allergy Intermediate HIVES Verified 06/02/24 01:54 shellfish derived Allergy Unknown Unknown Verified 06/02/24 01:54 acetaminophen AdvReac Mild NAUSEA Verified 06/02/24 01:54 Fish Containing Products AdvReac Unknown Unknown Verified 06/02/24 01:54 Home Medications Medication Instructions Recorded Confirmed Type nitroglycerin 0.4 mg sublingual 0.4 mg sublingual UD PRN Chest Pain 04/24/19 06/12/24 History tablet (Nitrostat) aspirin 81 mg tablet,delayed 81 mg PO QAM 06/16/21 06/12/24 History release (Neisha Low Dose Aspirin) albuterol sulfate 2.5 mg/3 mL 2.5 mg inhalation Q6H PRN 12/02/21 06/12/24 History (0.083 %) solution for nebulization Shortness Of Breath Or Wheezing budesonide 0.25 mg/2 mL suspension 0.25 mg inhalation DAILY PRN 09/15/22 06/12/24 History for nebulization Shortness Of Breath blood-glucose meter (ArithmaticaTouch #1 ea 10/12/22 06/12/24 Rx Verio Flex Meter) lancets 30 gauge (OneTouch Delica #100 ea 10/12/22 06/12/24 Rx Plus Lancet) Symbicort 160 mcg-4.5 2 inh inhalation BID #3 Inhalers 11/14/22 06/12/24 Rx mcg/actuation HFA aerosol inhaler (budesonide-formoterol) blood sugar diagnostic (OneTouch #100 ea 01/17/23 06/12/24 Rx Verio test strips) pen needle, diabetic 31 gauge x #100 ea 02/16/23 06/12/24 Rx 5/16" (Comfort EZ Pen Goodridge) hydroxyzine HCl 25 mg tablet 25 mg PO TID PRN itching #90 tabs 05/31/23 06/12/24 Rx albuterol sulfate 90 mcg/actuation 1 inh inhalation QID PRN Shortness 10/12/23 06/12/24 History aerosol inhaler Of Breath Or Wheezing lidocaine 5 % topical patch 1 patch topical DAILY PRN Pain 11/03/23 06/12/24 History trolamine salicylate 10 % topical 1 applic EXT BID PRN left sided 11/06/23 06/12/24 Rx cream (Myoflex) neck pain #35.4 grams blood-glucose sensor (FreeStyle #2 ea 12/13/23 06/12/24 Rx Karla 3 Plus Sensor device) blood-glucose,cut roll machine offbearer,cont #1 ea 01/14/24 06/12/24 Rx (FreeStyle Karla 3 Faulkner) blood-glucose,cut roll machine offbearer,cont #1 ea 01/14/24 06/12/24 Rx (FreeStyle Karla 3 Faulkner) atorvastatin 10 mg tablet 10 mg PO DAILY #90 tabs 02/04/24 06/12/24 Rx Farxiga 10 mg tablet 10 mg PO DAILY #90 tabs 04/28/24 06/12/24 Rx (dapagliflozin propanediol) insulin glargine 100 unit/mL (3 50 unit subcut BID 04/28/24 06/12/24 History mL) subcutaneous pen isosorbide mononitrate 60 mg 60 mg PO DAILY #90 tabs 04/28/24 06/12/24 Rx tablet,extended release 24 hr metoprolol succinate 100 mg 100 mg PO BID #180 tabs 04/28/24 06/12/24 Rx tablet,extended release 24 hr sacubitril 97 mg-valsartan 103 mg 1 tab PO BID #180 tabs 04/28/24 06/12/24 Rx tablet (Entresto) torsemide 100 mg tablet 100 mg PO BID #180 tabs 04/28/24 06/12/24 Rx triamcinolone acetonide 0.025 % 1 applic topical TID PRN rash #454 04/28/2403/08 Rx topical cream grams nystatin 100,000 unit/gram topical 1 applic topical BID PRN Skin 05/09/24 06/12/24 Rx powder Irritation #60 grams tirzepatide 7.5 mg/0.5 mL 7.5 mg (0.5 mL) subcut Q7D 30 days 05/09/24 06/12/24 Rx subcutaneous pen injector #2 mL metoprolol succinate 25 mg 25 mg PO BID #60 tabs 05/26/24 06/12/24 Rx tablet,extended release 24 hr spironolactone 50 mg tablet 50 mg PO BID #60 tabs 05/26/24 06/12/24 Rx Oxygen Home #1 ea 05/29/24 06/12/24 Rx Past Med/Surg History Problem List (Updated 06/12/24 @ 23:29 by Lexus Santana MD) Elevated troponin (Acute) Elevated brain natriuretic peptide (BNP) level (Acute) Hypomagnesemia (Acute) Acute exacerbation of CHF (congestive heart failure) (Acute) Venous stasis dermatitis Non-sustained ventricular tachycardia (Acute) Pulmonary edema (Acute) Lightheadedness (Acute) Dyspnea (Acute) Chronic respiratory failure with hypoxia Acute on chronic heart failure with reduced ejection fraction (HFrEF, <= 40%) Type 2 diabetes mellitus with microalbuminuria Periapical abscess Pulmonary edema (Acute) Hypomagnesemia (Acute) Type 2 diabetes mellitus with peripheral neuropathy Type 2 diabetes mellitus with obesity Diabetic peripheral neuropathy Non-proliferative diabetic retinopathy, both eyes Uncontrolled diabetes mellitus with hyperglycemia Chronic respiratory failure Normocytic anemia Hypertension (Chronic) Poor intravenous access Morbid obesity with BMI of 50.0-59.9, adult Chronic anticoagulation Diabetes mellitus type II, uncontrolled (Chronic) Urinary bladder incontinence Hx of local infection of skin and subcutaneous tissue Ambulatory dysfunction (Chronic) Recurrent infection of skin Pulmonary nodule V tach (Acute) HFrEF (heart failure with reduced ejection fraction) Hemoptysis (Acute) Vitamin D deficiency Medical History Non-sustained ventricular tachycardia Obstructive sleep apnea NICM (nonischemic cardiomyopathy) Pt admitted for elective ICD. Underwent procedure without any complications monitored over night and discharged home. Combined systolic and diastolic heart failure Nonischemic cardiomyopathy, unclear etiology. Difficult to manage. Integrated into heart failure clinic. Frequent admissions for heart failure exacerbations. Echo (05/31) EF=25-30% with mod to severe global hypokinesis, basal kelsi-septal akinetic wall, LVH, RVSP elevated at 30-40mmHg, and mod dilated ascending aorta. Managed medically with ASA + BB + ARB/Neprilysin inhibitor (Entresto) + high dose furosemide (160mg BID) + metolazone (3x weekly). Considering ICD given EF. COPD (chronic obstructive pulmonary disease) Hypomagnesemia Medical non-compliance Intellectual disability Chronic dental pain Small bowel obstruction Housing instability, currently housed, at risk for homelessness Hearing loss of both ears Nonproliferative retinopathy due to secondary diabetes Dilatation of thoracic aorta Iliac aneurysm Vitamin D insufficiency Previously deficient, taking Vit D supplementation Umbilical hernia Lung nodule Fatty liver Surgical History AICD (automatic cardioverter/defibrillator) present H/O oral surgery History of carpal tunnel surgery S/P tonsillectomy History of cholecystectomy Family History Father , age 57 of an PA. Heart disease Myocardial infarction Mother , age 67 of a ruptured neck vessel Sudden Other Depression Lung disease No pertinent family history Denies family history of Ovarian cancer Prostate cancer Breast cancer Colorectal cancer Social History Smoking Status: Never smoker Tobacco Type: Cigarettes Age Started Using Tobacco: 14; Age Quit Using Tobacco: 18; packs per day: 1; Cigarettes Per Day: 2 PPD; Second Hand Exposure: No; Do You Dip or Chew Tobacco: No; Hx Alcohol Use: No Hx Substance Use: No Preferred Language: Khmer Communication Ability: Effective Visual Impairment: No Limitations Hearing Ability: Normal Flight Hostess Required: No Beliefs That Will Affect Care: None marital status: Current Living Situation: Family Current Living Situation Comment: Lives at home with current occupational status: unemployed How many Children do You have: 0 Other Information That Helps Us Care for You: No Feels Safe at Home: Yes Childhood Exposure to Second-Hand Smoke: Yes Dental Care, Regularly: Yes Physical Activity Frequency: Does not Exercise Seatbelt Use: never Sunscreen Use: No Assistive Devices: Cane, Oxygen - Continuous and Walker Review of Systems Review of Systems: All systems reviewed & are unremarkable except as noted in HPI & below Physical Exam Constitutional: WD/WN, vitals as above ENMT: external ear and nose normal, oropharynx normal Respiratory: normal respiratory effort; no respiratory distress Auscultation: + crackles (bibasal) Cardiovascular: Rate/Rhythm: regular rate and regular rhythm Extremities: normal capillary refill and + pedal edema Gastrointestinal (Abdomen): normal bowel sounds, soft, nontender, no hepatosplenomegaly Skin: + ecchymosis (over abdomen) Neurologic: moves all extremities and awake; not confused Psychiatric: A+Ox3, euthymic affect Results & Data Results & Data Vital Signs (Past 12 Hours) Vital Signs Temp Pulse Pulse Resp BP BP Pulse Ox 06/12/24 22:32 98 H 19 159/114 H 97 06/12/24 21:29 108 H 06/12/24 21:11 36.8 C 111 H 24 169/105 H 92 O2 Del Method O2 Flow Rate 06/12/24 22:32 Nasal Cannula 4 06/12/24 21:29 06/12/24 21:11 Nasal Cannula Laboratory Results Abnormal lab results 06/12/24 Range/Units 21:30 RDW Std Deviation 46.5 H (36.4-46.3) fL RDW Coeff of Zoltan 14.7 H (11.5-14.5) % VBG pCO2 36 L (38-50) mmHg Chloride 110 H (98-107) mmol/L Glucose 172 H (70-99(Fasting)) mg/dl Magnesium 1.4 L (1.7-2.4) mg/dl Troponin I High Sens 21.6 H (0-20) pg/ml B-Natriuretic Peptide 1092 H (0-100) pg/ml All labs reviewed Diagnostic Findings XR Chest, 1 View CLINICAL HISTORY: Reason for exam: Dyspnea. TECHNIQUE: Frontal view of the chest. COMPARISON: Prior chest x-ray from June 04, 2024. FINDINGS: There is an AICD in the left chest wall distal leads in the left ventricle. Lungs: Pulmonary edema. No consolidation. Pleural space: Unremarkable. No pneumothorax. Heart: Advanced cardiomegaly. Mediastinum: Unremarkable. Normal mediastinal contour. Bones/joints: Unremarkable. No acute fracture. IMPRESSION: Advanced cardiomegaly with pulmonary edema. Medications Administered ER Medications Given: Furosemide 40mg IV ECG Rate (beats per minute): 106 Rhythm: sinus tachycardia Findings: + other (incomplete LBBB); no acute ischemic change Comparison ECG Date: from (June 04, 2024) Change: no significant change Code Status & VTE Plan Code Status Full VTE Prophylaxis Plan VTE Prophylaxis will be ordered: Yes PG Care Time/CCT Total # of Minutes Spent Total Time Spent with Patient: Total time spent is greater than 50% in coordination of care (as documented) at patient's floor/unit and/or counseling patient: Coding Level of Care Code 72727 INT INP/OBS CARE 3/75MIN Diagnoses Acute on chronic heart failure with reduced ejection fraction (HFrEF, <= 40%) I50.23 Chronic respiratory failure with hypoxia J96.11 Type 2 diabetes mellitus with microalbuminuria E11.29; R80.9
[2024-06-12] MEDS: FUROSEMIDE 40 MG/4 ML VIAL IV STA (23:54)
[2024-06-12] MEDS: MAGNESIUM SULFATE / D5W 1 GM/100 ML BAG IV STA (23:54)
[2024-06-13 00:38] LABS: Appearance Urine Clear (Clear); Bilirubin Urine Negative (Negative); Blood Urine Negative (Negative); Color Urine Yellow; Glucose Urine UA Negative (Negative); Ketones Urine Negative (Negative); Leukocyte Esterase Urine Negative (Negative); Nitrite Urine Negative (Negative); Protein Urine Negative (Negative); Specific Gravity Urine 1.013 (1.000-1.030); Urobilinogen Urine Negative (Negative); pH Urine 5.5 (4.5-7.5)
--- NOTE | 2024-06-13 01:48 | XRay Report ---
Exam(s): XR CXR 1 VIEW EXAM: XR Chest, 1 View CLINICAL HISTORY: Reason for exam: Dyspnea. TECHNIQUE: Frontal view of the chest. COMPARISON: Prior chest x-ray from June 04, 2024. FINDINGS: There is an AICD in the left chest wall distal leads in the left ventricle. Lungs: Pulmonary edema. No consolidation. Pleural space: Unremarkable. No pneumothorax. Heart: Advanced cardiomegaly. Mediastinum: Unremarkable. Normal mediastinal contour. Bones/joints: Unremarkable. No acute fracture. IMPRESSION: Advanced cardiomegaly with pulmonary edema. Electronically signed by: Melissa Myles MD 06/13/24 01:47 AM
[2024-06-13] MEDS ORDERED: hydrOXYzine HCl 25 MG TAB PO PRN (01:52)
[2024-06-13] MEDS ORDERED: GLUCAGON FOR INJ 1 MG VIAL SQ PRN (01:52)
[2024-06-13] MEDS ORDERED: ONDANSETRON INJ 2 MG/ML 2 ML VIAL IV PRN (01:52)
[2024-06-13] MEDS ORDERED: GLUCOSE 40% GEL 15 GM TUBE PO PRN (01:52)
[2024-06-13] MEDS ORDERED: DEXTROSE 50% 50 ML SYRINGE IV PRN (01:52)
[2024-06-13] MEDS ORDERED: CARBOHYDRATES FOR HYPOGLYCEMIA PO PRN (01:52)
[2024-06-13] MEDS ORDERED: GLUCOSE 10 TAB/TUBE PO PRN (01:52)
[2024-06-13] MEDS: SPIRONOLACTONE 25 MG TAB PO SCH (02:42)
[2024-06-13] MEDS: MAGNESIUM SULFATE / D5W 1 GM/100 ML BAG IV SCH (02:42)
[2024-06-13] MEDS: VALSARTAN/SACUBITRIL 103/97MG TAB PO SCH (02:42)
[2024-06-13] MEDS: METOPROLOL SUCC 50MG EXT REL TAB PO SCH (02:42)
[2024-06-13 05:15] LABS: Calcium 8.8 mg/dl (8.6-10.3); Creatinine Clr Calc Pharmacy 141.5 ml/min; Magnesium 1.8 mg/dl (1.7-2.4); Potassium 3.8 mmol/L (3.5-5.1)
[2024-06-13 07:00] LABS: Estimated Average Glucose 183 mg/dl
[2024-06-13] MEDS ORDERED: hydrALAZINE HCL 20 MG/ML VIAL IV PRN (07:40)
[2024-06-13] MEDS: FLUTICASONE/VILANTEROL 100/25MCG 14 PUFFS/INHALER INH SCH (07:48)
[2024-06-13] MEDS: ASPIRIN 81 MG ECTAB PO SCH (07:49)
[2024-06-13] MEDS: EMPAGLIFLOZIN 10 MG TAB PO SCH (07:50)
[2024-06-13] MEDS: ATORVASTATIN 10 MG TAB PO SCH (07:50)
[2024-06-13] MEDS: ISOSORBIDE MONO EXTENDED REL 60 MG TABCR PO SCH (07:50)
[2024-06-13] MEDS: FUROSEMIDE 40 MG/4 ML VIAL IV SCH (07:51)
[2024-06-13] MEDS: INSULIN ASPART PER UNIT CHARGE SC SCH (08:41)
[2024-06-13] MEDS ORDERED: LANTUS PER UNIT CHARGE SQ SCH (09:00)
[2024-06-13] MEDS: LANTUS PER UNIT CHARGE SQ SCH (09:07)
[2024-06-13] MEDS: metOLazone 5 MG TABLET PO SCH (09:26)
--- NOTE | 2024-06-13 12:11 | Hospitalist Progress Note ---
Date of Service June 13, 2024 Assessment & Plan (1) Acute on chronic heart failure with reduced ejection fraction (HFrEF, <= 40%): Plan: Known ejection fraction of 10%. Medication compliance is in question. He is now on parenteral Lasix therapy. Metolazone has been added on a daily basis. Blood pressure control is essential here. Will use intravenous hydralazine on a as needed basis for now. Monitor intake and output (2) Chronic respiratory failure with hypoxia: Plan: Currently 94% on 4 L oxygen. Adjust oxygen as needed (3) Type 2 diabetes mellitus with microalbuminuria: Plan: ADA diet. Sliding scale coverage. Insulin glargine 30 units twice daily for now (4) Hypertension: Plan: Blood pressure is running high with current CHF. Parenteral hydralazine ordered as needed. Continue metoprolol succinate and Entresto. (5) Morbid obesity with BMI of 50.0-59.9, adult: Plan: Significant weight loss recommended Plan Hopeful discharge to home within the next 2 to 3 days Admission and Anticipated Discharge Date Admission Date: June 12, 2024 Subjective Alert and oriented. He has had multiple recent hospitalizations for exacerbation of his CHF. His home family dynamics are not good and I suspect there is medication noncompliance. Nevertheless, he is on parenteral Lasix therapy at this time. Metolazone has been added. Mild hypomagnesemia on admission has been corrected. Hopefully he will be able to go home in the next 2 to 3 days Review of Systems 2 Review of Systems: Constitutionalno fever or chills ENTno blurred vision, no double vision, no epistaxis, no sore throat Respiratoryno cough, no wheezing, no shortness of breath at rest. He is dyspneic on exertion Cardiacno palpitations, no chest pain, no syncope Katlyn nausea, vomiting, diarrhea, melena, hematochezia GUno urinary retention, no urinary incontinence, no dysuria, no hematuria Musculoskeletalno joint pain, no muscle tenderness Skinno bruising, no rashes, no pruritus Neurono isolated weakness, no paresthesia, no weakness Psychno depression, no anxiety Physical Exam 2 Physical Exam: General-alert and oriented x3, no fever, no chills HEENT-head atraumatic and normocephalic, pupils equal and reactive to light, extraocular muscles intact Neck-no lymphadenopathy or thyromegaly, trachea midline Chest-clear to auscultation. No rales, wheezing or rhonchi Cardiac-regular rate and rhythm, normal S1 and S2 Abdomen-normal bowel sounds, no hepatosplenomegaly [id number]+ pitting edema bilateral lower extremities below the knees Neuro-cranial nerves II through XII intact, motor and sensory function within normal limits, strength symmetrical, no focal deficits Psych-normal affect, normal mood Results & Data Results & Data Vital Signs (Past 12 Hours) Vital Signs Pulse Pulse Resp BP BP Pulse Ox O2 Del Method 06/13/24 10:00 81 24 93 06/13/24 09:21 79 17 138/94 93 06/13/24 09:21 75 22 154/111 H 92 06/13/24 07:03 76 06/13/24 07:00 90 24 133/97 95 06/13/24 02:59 103 H 18 187/131 H 94 Nasal Cannula 06/13/24 02:01 109 H 22 187/131 H 93 Nasal Cannula 06/13/24 01:20 110 H 06/13/24 00:38 108 H 18 158/125 H 94 Nasal Cannula O2 Flow Rate 06/13/24 10:00 06/13/24 09:21 06/13/24 09:21 06/13/24 07:03 06/13/24 07:00 06/13/24 02:59 4 06/13/24 02:01 5 06/13/24 01:20 06/13/24 00:38 4 Laboratory Results 06/12/24 21:30 06/13/24 04:21 PG Care Time/CCT Total # of Minutes Spent Total Time Spent with Patient: Total time spent is greater than 50% in coordination of care (as documented) at patient's floor/unit and/or counseling patient: Coding Level of Care Code 44755 SUB INP/OBS CARE 3/50MIN Diagnoses Acute on chronic heart failure with reduced ejection fraction (HFrEF, <= 40%) I50.23 Chronic respiratory failure with hypoxia J96.11 Type 2 diabetes mellitus with microalbuminuria E11.29; R80.9 Hypertension I10 Hypertension type: unspecified Morbid obesity with BMI of 50.0-59.9, adult E66.01; Z68.43 (4) Hypertension Hypertension type: unspecified Qualified Code(s): I10 - Essential (primary) hypertension
--- NOTE | 2024-06-14 00:46 | Electrocardiogram Report ---
Test Reason : Blood Pressure : */* mmHG Vent. Rate : 106 BPM Atrial Rate : 106 BPM P-R Int : 168 ms QRS Dur : 110 ms QT Int : 364 ms P-R-T Axes : 30 -47 97 degrees QTcB Int : 483 ms Sinus tachycardia Possible Left atrial enlargement Left axis deviation Minimal voltage criteria for LVH, may be normal variant ( Mitch product ) with QRS widening and rep olarization abnormality Abnormal ECG When compared with ECG of 04-Jun-2024 03:38, Vent. rate has increased by 38 bpm T wave inversion less evident in Lateral leads Confirmed by Bertrand Horne ([id number]) on 06/14/2024 12:46:17 AM Referred By: Gosia Martinez Confirmed By: Bertrand Horne
[2024-06-14 06:18] LABS: BUN Creatinine Ratio 19.5 (10-20); Calcium 9.3 mg/dl (8.6-10.3); Creatinine Clr Calc Pharmacy 99.9 ml/min; Potassium 3.6 mmol/L (3.5-5.1)
[2024-06-14] MEDS: traMADol HCL 50 MG TABLET PO PRN (08:21)
--- NOTE | 2024-06-14 12:47 | Hospitalist Progress Note ---
Date of Service June 14, 2024 Assessment & Plan (1) Acute on chronic heart failure with reduced ejection fraction (HFrEF, <= 40%): Plan: Known ejection fraction of 10%. Medication compliance is in question. He is now on parenteral Lasix therapy. Metolazone has been added on a daily basis. Brisk diuretic response has ensued. Will repeat portable chest x-ray again tomorrow, June 15. Blood pressure control is essential here. Blood pressure is much improved with diuresis. Will use intravenous hydralazine on a as needed basis for now. Monitor intake and output (2) Chronic respiratory failure with hypoxia: Plan: He chronically uses 5 L of oxygen at home. Adjust oxygen as needed (3) Type 2 diabetes mellitus with microalbuminuria: Plan: ADA diet. Sliding scale coverage. Insulin glargine 30 units twice daily seems to be adequate for now (4) Hypertension: Plan: Blood pressure is elevated on admission but much improved with diuresis. Parenteral hydralazine ordered as needed. Continue metoprolol succinate and Entresto. (5) Morbid obesity with BMI of 50.0-59.9, adult: Plan: Significant weight loss recommended (6) Left knee pain: Plan: No erythema or swelling. Pain resolved with tramadol which will be used as needed. Plan Hopeful discharge to home within the next 2 to 3 days Admission and Anticipated Discharge Date Admission Date: June 12, 2024 Subjective Alert and oriented. No distress. Brisk diuresis with parenteral Lasix. Will repeat portable chest x-ray again tomorrow, June 15. His primary concern appears to be his diet however. Glucose is adequately controlled with current insulin glargine dosage. Blood pressure has decreased nicely with diuresis. He complained of left knee discomfort earlier today, June 14, that resolved with tramadol. Hypomagnesemia present on admission has been corrected Review of Systems 2 Review of Systems: Constitutionalno fever or chills ENTno blurred vision, no double vision, no epistaxis, no sore throat Respiratoryno cough, no wheezing, no shortness of breath at rest. He is dyspneic on exertion Cardiacno palpitations, no chest pain, no syncope Katlyn nausea, vomiting, diarrhea, melena, hematochezia GUno urinary retention, no urinary incontinence, no dysuria, no hematuria Musculoskeletalno joint pain, no muscle tenderness Skinno bruising, no rashes, no pruritus Neurono isolated weakness, no paresthesia, no weakness Psychno depression, no anxiety Physical Exam 2 Physical Exam: General-alert and oriented x3, no fever, no chills HEENT-head atraumatic and normocephalic, pupils equal and reactive to light, extraocular muscles intact Neck-no lymphadenopathy or thyromegaly, trachea midline Chest-clear to auscultation. No rales, wheezing or rhonchi Cardiac-regular rate and rhythm, normal S1 and S2 Abdomen-normal bowel sounds, no hepatosplenomegaly [id number]-0-5+ pitting edema bilateral lower extremities below the knees Neuro-cranial nerves II through XII intact, motor and sensory function within normal limits, strength symmetrical, no focal deficits Psych-normal affect, normal mood Results & Data Results & Data Vital Signs (Past 12 Hours) Vital Signs Temp Pulse Pulse Resp BP Pulse Ox O2 Del Method 06/14/24 11:53 36.4 C L 72 17 100/54 L 93 Nasal Cannula 06/14/24 09:00 Nasal Cannula 06/14/24 07:50 36.2 C L 68 17 118/77 90 Nasal Cannula 06/14/24 05:37 58 L 06/14/24 02:49 36.4 C L 60 14 98/62 L 95 Nasal Cannula 06/14/24 01:50 71 17 98 O2 Flow Rate FiO2 06/14/24 11:53 5 06/14/24 09:00 5 06/14/24 07:50 5 06/14/24 05:37 06/14/24 02:49 5 06/14/24 01:50 50 Laboratory Results 06/12/24 21:30 06/14/24 05:27 PG Care Time/CCT Total # of Minutes Spent Total Time Spent with Patient: Total time spent is greater than 50% in coordination of care (as documented) at patient's floor/unit and/or counseling patient: Coding Level of Care Code 09596 SUB INP/OBS CARE 3/50MIN Diagnoses Acute on chronic heart failure with reduced ejection fraction (HFrEF, <= 40%) I50.23 Chronic respiratory failure with hypoxia J96.11 Type 2 diabetes mellitus with microalbuminuria E11.29; R80.9 Hypertension I10 Hypertension type: unspecified Morbid obesity with BMI of 50.0-59.9, adult E66.01; Z68.43 Left knee pain M25.562 (4) Hypertension Hypertension type: unspecified Qualified Code(s): I10 - Essential (primary) hypertension
[2024-06-14] MEDS: BUDESONIDE INH SCH (12:57)
[2024-06-14] MEDS: FORMOTEROL FUMARATE INH SCH (12:57)
[2024-06-14] MEDS: FLUTICASONE/VILANTEROL 200/25MCG 14 PUFFS/INHALER INH SCH (12:58)
[2024-06-14] MEDS ORDERED: NON-FORMULARY PATIENT'S OWN MED SCH (21:00)
[2024-06-14] MEDS ORDERED: BUDESONIDE/FORMOTEROL FUMARATE 80/4.5 60 PUFFS/INHALER INH SCH (21:00)
[2024-06-14] MEDS: VALSARTAN/SACUBITRIL 51/49 MG TAB PO ONE (21:37)
[2024-06-14] MEDS: BUDESONIDE/FORMOTEROL FUMARATE 160/4.5 60 PUFFS/INHALER INH SCH (22:00)
[2024-06-15 06:26] LABS: BUN Creatinine Ratio 17.3 (10-20); Calcium 9.1 mg/dl (8.6-10.3); Creatinine Clr Calc Pharmacy 49.2 ml/min; Magnesium 2.2 mg/dl (1.7-2.4); Potassium 4.3 mmol/L (3.5-5.1)
--- NOTE | 2024-06-15 08:22 | XRay Report ---
HISTORY: CHF TECHNIQUE: Portable AP radiograph of the chest. COMPARISON: Chest radiograph dated 06/04/2024. FINDINGS: Left subclavian approach pacer/AICD with right ventricular lead. quality assurance monitor leads overlie the chest. Bilateral lower lung airspace opacities. No pneumothorax or effusion.Cardiomegaly. Left-sided aortic arch. Midline trachea. No acute osseous abnormality. Included upper abdomen is unremarkable. IMPRESSION: * Improving bilateral lower lung airspace opacities, which could represent pneumonia or atelectasis. * Cardiomegaly. * Additional findings as above. Electronically signed by Tonio Pearl 06-15-2024 08:22 AM
[2024-06-15] MEDS: SODIUM CHLORIDE 0.9% 250 ML IV ONE (08:38)
[2024-06-15] MEDS ORDERED: VALSARTAN/SACUBITRIL 51/49 MG TAB PO SCH (09:00)
--- NOTE | 2024-06-15 14:05 | Hospitalist Progress Note ---
Date of Service June 15, 2024 Assessment & Plan (1) Acute on chronic heart failure with reduced ejection fraction (HFrEF, <= 40%): Plan: Known ejection fraction of 10%. Medication compliance is in question. He has been treated with parenteral Lasix therapy and metolazone. Chest x-ray today, June 15, looks much better. His blood pressure is actually somewhat low now although he is asymptomatic. Metolazone, Lasix, Entresto have temporarily been placed on hold. He received a 250 cc fluid bolus intravenously and blood pressure is better. Fortunately he is asymptomatic. (2) Chronic respiratory failure with hypoxia: Plan: He chronically uses 5 L of oxygen at home. He is currently at his baseline oxygen use (3) Type 2 diabetes mellitus with microalbuminuria: Plan: ADA diet. Sliding scale coverage. Insulin glargine 30 units twice daily seems to be adequate for now (4) Hypertension: Plan: Blood pressure was elevated on admission but now is low with diuresis. Entresto was temporarily on hold. Continue metoprolol succinate (5) Morbid obesity with BMI of 50.0-59.9, adult: Plan: Significant weight loss recommended (6) Left knee pain: Plan: No erythema or swelling. Pain resolved with tramadol which will be used as needed. Plan Hopeful discharge to home tomorrow, June 16 Admission and Anticipated Discharge Date Admission Date: June 12, 2024 Subjective Alert and oriented without complaint. Chest x-ray done today, June 15, looks much better. He probably has had a little excessive diuresis, now with low blood pressure and creatinine has increased. Fortunately, he is asymptomatic. Entresto has been placed on hold temporarily and so has his IV Lasix and oral metolazone. He received a 250 cc bolus today and blood pressure is more acceptable. A prescription of metolazone will be given to the patient at discharge and he will take 1 dose on a as needed basis if his weight increases by 2 pounds Review of Systems 2 Review of Systems: Constitutionalno fever or chills ENTno blurred vision, no double vision, no epistaxis, no sore throat Respiratoryno cough, no wheezing, no shortness of breath at rest. Dyspnea on exertion has improved Cardiacno palpitations, no chest pain, no syncope [place] nausea, vomiting, diarrhea, melena, hematochezia GUno urinary retention, no urinary incontinence, no dysuria, no hematuria Musculoskeletalno joint pain, no muscle tenderness Skinno bruising, no rashes, no pruritus Neurono isolated weakness, no paresthesia, no weakness Psychno depression, no anxiety Physical Exam 2 Physical Exam: General-alert and oriented x3, no fever, no chills HEENT-head atraumatic and normocephalic, pupils equal and reactive to light, extraocular muscles intact Neck-no lymphadenopathy or thyromegaly, trachea midline Chest-diminished breath sounds bilaterally but no inspiratory rales heard. No wheezing. No rhonchi Cardiac -regular rate and rhythm, normal S1 and S2 Abdomen-normal bowel sounds, no hepatosplenomegaly Extremities-1+pitting edema bilateral lower extremities below the knees. This is an improvement Neuro-cranial nerves II through XII intact, motor and sensory function within normal limits, strength symmetrical, no focal deficits Psych-normal affect, normal mood Results & Data Results & Data Vital Signs (Past 12 Hours) Vital Signs Temp Pulse Pulse Resp BP BP Pulse Ox 06/15/24 11:58 36.5 C 84 22 92/60 L 98 06/15/24 08:56 06/15/24 08:55 92/72 L 06/15/24 08:30 78/58 L 06/15/24 08:19 78/56 L 06/15/24 08:10 36.3 C L 57 L 22 82/56 L 99 06/15/24 05:37 48 L 06/15/24 03:52 36.6 C 55 L 16 87/57 L 100 06/15/24 02:52 67 16 99 O2 Del Method O2 Flow Rate FiO2 06/15/24 11:58 Nasal Cannula 5 06/15/24 08:56 Nasal Cannula 5 06/15/24 08:55 06/15/24 08:30 06/15/24 08:19 06/15/24 08:10 BiPAP 06/15/24 05:37 06/15/24 03:52 CPAP 06/15/24 02:52 50 Laboratory Results 06/12/24 21:30 06/15/24 05:21 PG Care Time/CCT Total # of Minutes Spent Total Time Spent with Patient: Total time spent is greater than 50% in coordination of care (as documented) at patient's floor/unit and/or counseling patient: Coding Level of Care Code 48907 SUB INP/OBS CARE MIN Diagnoses Acute on chronic heart failure with reduced ejection fraction (HFrEF, <= 40%) I50.23 Chronic respiratory failure with hypoxia J96.11 Type 2 diabetes mellitus with microalbuminuria E11.29; R80.9 Hypertension I10 Hypertension type: unspecified Morbid obesity with BMI of 50.0-59.9, adult E66.01; Z68.43 Left knee pain M25.562 (4) Hypertension Hypertension type: unspecified Qualified Code(s): I10 - Essential (primary) hypertension
[2024-06-16 01:01] VITALS: RESP 18
[2024-06-16 07:37] LABS: BUN Creatinine Ratio 28.4 (10-20); Creatinine Clr Calc Pharmacy 73.2 ml/min; Potassium 3.8 mmol/L (3.5-5.1)
[2024-06-16 16:54] LABS: BUN Creatinine Ratio 24.4 (10-20); Calcium 9.1 mg/dl (8.6-10.3); Creatinine Clr Calc Pharmacy 71.5 ml/min; Potassium 4.8 mmol/L (3.5-5.1)
--- NOTE | 2024-06-16 18:41 | Hospitalist Progress Note ---
Date of Service June 16, 2024 Assessment & Plan (1) Acute on chronic heart failure with reduced ejection fraction (HFrEF, <= 4 0%): Plan: Known ejection fraction of 10%. Medication compliance is in question. He has been treated with parenteral Lasix therapy and metolazone. Chest x-ray today, June 15, looks much better. His blood pressure is actually somewhat low now although he is asymptomatic. Metolazone, Lasix, Entresto have temporarily been placed on hold. He received a 250 cc fluid bolus intravenously and blood pressure is better. Fortunately he is asymptomatic. appears resolved. (2) Acute kidney failure: Plan: Patient creatinine is improving but not at baseline. Holding further diuretics. holding ARB. will place on IVF. (3) Chronic respiratory failure with hypoxia: Plan: He chronically uses 5 L of oxygen at home. He is currently at his baseline oxygen use (4) Type 2 diabetes mellitus with microalbuminuria: Plan: ADA diet. Sliding scale coverage. Insulin glargine 30 units twice daily seems to be adequate for now (5) Hypertension: Plan: Blood pressure was elevated on admission but now is low with diuresis. Entresto was temporarily on hold. Continue metoprolol succinate (6) Morbid obesity with BMI of 50.0-59.9, adult: Plan: Significant weight loss recommended (7) Left knee pain: Plan: No erythema or swelling. Pain resolved with tramadol which will be used as needed. Plan Hopeful discharge to home tomorrow, June 17 Admission and Anticipated Discharge Date Admission Date: June 12, 2024 Subjective 48 yo male reports feeling close to baseline. He has no new complaints. Review of Systems Review of Systems: All systems reviewed & are unremarkable except as noted in HPI & below Physical Exam Constitutional: WD/WN, vitals as above Respiratory: normal respiratory effort (clear) Cardiovascular: RRR, no murmur, no edema Results & Data Results & Data Vital Signs (Past 12 Hours) Vital Signs Temp Pulse Pulse Resp BP Pulse Ox O2 Del Method 06/16/24 17:04 60 06/16/24 15:04 36.4 C L 72 18 102/63 98 Nasal Cannula 06/16/24 10:55 36.5 C 58 L 18 91/57 L 98 Nasal Cannula 06/16/24 08:00 63 06/16/24 08:00 Nasal Cannula 06/16/24 07:10 36.5 C 60 18 97/66 L 100 BiPAP O2 Flow Rate 06/16/24 17:04 06/16/24 15:04 4 06/16/24 10:55 4 06/16/24 08:00 06/16/24 08:00 5 06/16/24 07:10 PG Care Time/CCT Total # of Minutes Spent Total Time Spent with Patient: Total time spent is greater than 50% in coordination of care (as documented) at patient's floor/unit and/or counseling patient: Coding Level of Care Code 71803 SUB INP/OBS CARE 3/50MIN Diagnoses Acute on chronic heart failure with reduced ejection fraction (HFrEF, <= 40%) I50.23 Acute kidney failure N17.9 Chronic respiratory failure with hypoxia J96.11 Type 2 diabetes mellitus with microalbuminuria E11.29; R80.9 Hypertension I10 Hypertension type: unspecified Morbid obesity with BMI of 50.0-59.9, adult E66.01; Z68.43 Left knee pain M25.562 (5) Hypertension Hypertension type: unspecified Qualified Code(s): I10 - Essential (primary) hypertension
[2024-06-16] MEDS: LACTATED RINGER'S 1,000 ML IV SCH (19:27)
[2024-06-17 06:37] LABS: Hematocrit (blood only) 45.9 % (42.0-52.0); Hemoglobin 15.5 g/dl (14.0-18.0); Mean Corpuscular Hemoglobin 29.7 pg (25.0-34.0); Mean Corpuscular Hgb Conc 33.8 g/dL (32.0-36.0); Mean Corpuscular Volume 87.9 fL (80.0-100.0); Mean Platelet Volume 10.3 fL (9.4-12.4); Platelet Count 159 K/uL (130-400); RDW Coefficient of Variation 14.4 % (11.5-14.5); RDW Standard Deviation 46.2 fL (36.4-46.3); Red Blood Count 5.22 M/uL (4.70-6.10); White Blood Count 7.35 K/ul (4.8-10.8)
[2024-06-17 06:55] LABS: Calcium 8.8 mg/dl (8.6-10.3)
[2024-06-17 07:01] LABS: Creatinine Clr Calc Pharmacy 98.7 ml/min
[2024-06-17 07:26] VITALS: TEMP 97.5; O2SAT 97
[2024-06-17 10:49] VITALS: BP 121/66; PULSE 70
--- NOTE | 2024-06-20 11:03 | Discharge Summary ---
Discharge Summary Date of Service June 17, 2024 Principal Dx & Hospital Course #1 = Principal Diagnosis (1) Acute on chronic heart failure with reduced ejection fraction (HFrEF, <= 40%): Known ejection fraction of 10%. Medication compliance is in question. He has been treated with parenteral Lasix therapy and metolazone. Chest x-ray today, June 15, looks much better. His blood pressure is actually somewhat low now although he is asymptomatic. Metolazone, Lasix, Entresto have temporarily been placed on hold. He received a 250 cc fluid bolus intravenously and blood pressure is better. Fortunately he is asymptomatic. appears resolved. will resume home meds at discharge, patient will need to get CPAP replaced at home Patient will discuss with occupational work experience teacher as an outpatient if he is a candidate for heart transplant. (2) Acute kidney failure: Patient creatinine resolved. Likely iatrogenic from diuresis. Patient has a tight therapeutic window (3) Chronic respiratory failure with hypoxia: He chronically uses 5 L of oxygen at home. He is currently at his baseline oxygen use (4) Type 2 diabetes mellitus with microalbuminuria: ADA diet. Sliding scale coverage. Insulin glargine 30 units twice daily seems to be adequate for now (5) Hypertension: Blood pressure was elevated on admission but now is low with diuresis. Entresto was temporarily on hold. Continue metoprolol succinate (6) Morbid obesity with BMI of 50.0-59.9, adult: Significant weight loss recommended (7) Left knee pain: No erythema or swelling. Pain resolved with tramadol which will be used as needed. Admission HPI Per Admitting Provider Alok Huff is a 48 year old male well known to the service with repeated hospitalizations for non ischemic cardiomyopathy causing acute on chronic HFrEF who presents to the ER with shortness of breath and weight gain. He was most recently discharged on June 04 with HFrEF after not wearing his oxygen while visiting someone at the hospital. He was initially doing well on discharge and weight continued to decrease but over the last 48 hours his weight dramatically increased 20lb with associated shortness of breath on exertion. No chest pain. He reports taking medications as prescribed without increased fluid or salt intake although he has notably had some issues with compliance in the past. Last echocardiogram in September 2023 with LVEF 15-20%. Discharge Exam Constitutional WD/WN, vitals as above Respiratory normal respiratory effort (clear) Cardiovascular RRR, no murmur, no edema Discharge Plan Discharge Items Patient Disposition: Home - Self-Care Reason For Visit: ACUTE ON CHRONIC HFREF Discharge Diagnosis: acute on chronic HFrEF Condition on Discharge: Good Activity: Resume your previous activity Non-emergency contact: Primary Care Provider Call non-emergency contact if: you have any medication questions Follow-up/Referrals: Gosia Martinez MD [Primary Care Provider] - 06/20/24 3:00 pm (Hospital follow up on June 20 at 3 pm.) Diet: Heart Healthy Addtl Attending Provider Instructions: Call your Primary Care doctor if any of the following symptoms or problems start or get worse: * Shortness of breath or difficulty breathing * Wake up at night short of breath * Chest pain * Cough * Swelling of your hands, feet, or legs * More fatigued or tired with your normal activity * Palpitations - sudden fast heart beats WEIGHT * Weigh yourself every morning after using the bathroom. * Use the same scale. * Wear the same amount of clothing. * Write your weight down on a chart. * Call your Primary Care doctor if you gain more than 2-3 pounds in 1-2 days. MEDICATIONS * Use this discharge instruction sheet for medication instructions. * Take your medications at the time your doctor ordered. * Do not skip a dose of your medicines. * If you miss a dose of medicine, take it as soon as possible, but DO NOT DOUBLE A DOSE. * Read your medicine information when you get home. * Know all of the side effects of your medicine. If in doubt, ask your ph armacist * Call your Primary Care doctor's office if you have any side effects. * Be sure all of your doctors know what medicine and herbs you take (including cold, flu, and herbal medicine). Take the following with you to your follow-up doctor appointments: * Weight Chart * Medication List * List of questions Do not drink excessive alcohol, beer or wine. Pending Studies at Discharge: No Stand-Alone Forms: My [facility], Smoking Cessation Medications and DC Order Prescriptions: Continued (DME) Silentsoft Karla 3 [place] Misc See Rx Instructions .Route Qty: 1 1RF Rx Instructions: moniotr blood sugar (DME) FreeStyle Karla 3 [place] Misc See Rx Instructions .ROUTE .MEDSUPPLY Qty: 1 0RF Rx Instructions: use with karla 3 + sensor tirzepatide 7.5 mg/0.5 mL pen injector 7.5 mg subcut Q7D 30 Days Qty: 2 3RF Rx Instructions: WEDNES[place]YS (DME) pen needle, diabetic [Comfort EZ Pen [place]] 31 gauge x 5/16" needle See Rx Instructions .Route Qty: 100 3RF Rx Instructions: use when administering insuling daily budesonide 0.25 mg/2 mL suspension for nebulization 0.25 mg inhalation DAILY PRN (Reason: Shortness Of Breath) budesonide-formoterol [Symbicort] 160-4.5 mcg/actuation HFA aerosol inhaler 2 inh inhalation BID Qty: 3 3RF Rx Instructions: 2 puffs twice per day. Rinse mouth after each use (DME) OneTouch Verio test strips Strip See Rx Instructions miscellaneous .MEDSUPPLY Qty: 100 5RF Rx Instructions: check 3x a day (DME) lancets [OneTouch Delica Plus Lancet] 30 gauge misc See Rx Instructions .ROUTE .MEDSUPPLY Qty: 100 5RF Rx Instructions: use new lancet 3x a day (DME) blood-glucose meter [OneTouch Verio Flex meter] Misc See Rx Instructions .ROUTE .MEDSUPPLY Qty: 1 0RF Rx Instructions: As directed hydroxyzine HCl 25 mg tablet 25 mg PO TID PRN (Reason: itching) Qty: 90 1RF (DME) FreeStyle Karla 3 Plus Sensor Device See Rx Instructions .ROUTE .MEDSUPPLY Qty: 2 11RF Rx Instructions: change sensor every 15 days (DME) Oxygen Home Liters Per Minute See Rx Instructions .MEDSUPPLY Qty: 1 0RF Rx Instructions: Home Oxygen concentrator with portability, test for conserving device. 2-4LMP via n/c at rest/sleep and 2-4 LPM via n/c with exertion; VÍCTOR 99. atorvastatin 10 mg tablet 10 mg PO DAILY Qty: 90 3RF nystatin 100,000 unit/gram powder 1 applic topical BID PRN (Reason: Skin Irritation) Qty: 60 0RF insulin glargine 100 unit/mL (3 mL) insulin pen 50 unit subcut BID triamcinolone acetonide 0.025 % cream 1 applic topical TID PRN (Reason: rash) Qty: 454 0RF isosorbide mononitrate 60 mg tablet extended release 24 hr 60 mg PO DAILY Qty: 90 1RF metoprolol succinate 100 mg tablet extended release 24 hr 100 mg PO BID Qty: 180 1RF dapagliflozin propanediol [Farxiga] 10 mg tablet 10 mg PO DAILY Qty: 90 1RF Entresto 97-103 mg tablet 1 tab PO BID Qty: 180 1RF torsemide 100 mg tablet 100 mg PO BID Qty: 180 1RF Rx Instructions: 100 mg orally twice a day; nitroglycerin [Nitrostat] 0.4 mg tablet, sublingual 0.4 mg sublingual UD PRN (Reason: Chest Pain) aspirin [Neisha Low Dose Aspirin] 81 mg tablet,delayed release (DR/EC) 81 mg PO QAM albuterol sulfate 2.5 mg /3 mL (0.083 %) solution for nebulization 2.5 mg inhalation Q6H PRN (Reason: Shortness Of Breath Or Wheezing) Rx Instructions: Use every 6 hours as needed with nebulizer albuterol sulfate 90 mcg/actuation HFA aerosol inhaler 1 inh inhalation QID PRN (Reason: Shortness Of Breath Or Wheezing) lidocaine 5 % adhesive patch,medicated 1 patch topical DAILY PRN (Reason: Pain) trolamine salicylate [Myoflex] 10 % Cream 1 applic EXT BID PRN (Reason: left sided neck pain) Qty: 35.4 0RF Rx Instructions: Please give tube from hospital spironolactone 50 mg tablet 50 mg PO BID Qty: 60 0RF metoprolol succinate 25 mg tablet extended release 24 hr 25 mg PO BID Qty: 60 0RF Rx Instructions: Total dose is 125 mg twice daily Discharge Orders: Discharge Order- CHF (Routine); Ordered 06/17/24 Ordered By: Shemar Talamantes/Other Patient Handouts: Managing Type 2 Diabetes Admission Data Admit Date/Time: 06/12/24 23:31 Attending Provider: Shemar Sky Admit Provider: Migue Laguna Primary Care Provider: Gosia Martinez Other Interventions: Discharge Summary Assessment (RN) Last Done: 06/17/24 10:48 Hospital Stay Data Consultations 06/12/24 23:15 ED Decision to Admit Stat Pending Results Patient Have Any Pending Studies at Discharge: No Discharge Instructions Given to Patient (Per Discharging Provider) Call your Primary Care doctor if any of the following symptoms or problems start or get worse: * Shortness of breath or difficulty breathing * Wake up at night short of breath * Chest pain * Cough * Swelling of your hands, feet, or legs * More fatigued or tired with your normal activity * Palpitations - sudden fast heart beats WEIGHT * Weigh yourself every morning after using the bathroom. * Use the same scale. * Wear the same amount of clothing. * Write your weight down on a chart. * Call your Primary Care doctor if you gain more than 2-3 pounds in 1-2 days. MEDICATIONS * Use this discharge instruction sheet for medication instructions. * Take your medications at the time your doctor ordered. * Do not skip a dose of your medicines. * If you miss a dose of medicine, take it as soon as possible, but DO NOT DOUBLE A DOSE. * Read your medicine information when you get home. * Know all of the side effects of your medicine. If in doubt, ask your pharmacist * Call your Primary Care doctor's office if you have any side effects. * Be sure all of your doctors know what medicine and herbs you take (including cold, flu, and herbal medicine). Take the following with you to your follow-up doctor appointments: * Weight Chart * Medication List * List of questions Do not drink excessive alcohol, beer or wine. Total Time Total Time Spent Total Time Spent (In Minutes): 32 Coding Level of Care Code 79020 INP/OBS DISCH >30 MIN Diagnoses Acute on chronic heart failure with reduced ejection fraction (HFrEF, <= 40%) I50.23 Acute kidney failure N17.9 Chronic respiratory failure with hypoxia J96.11 Type 2 diabetes mellitus with microalbuminuria E11.29; R80.9 Hypertension I10 Hypertension type: unspecified Morbid obesity with BMI of 50.0-59.9, adult E66.01; Z68.43 Left knee pain M25.562
== END 2024-06-17 11:27 | disposition home or self-care (01) ==
LOC: ED 21:06 → EDINP 23:31 → INTOOBSV 23:31 → SUATTDRO 23:31 → 4W 06-13 01:53 → 2S 06-15 16:13

== ENCOUNTER 2024-06-26 14:44 | Observation (INO) ==
[2024-06-26 15:44] LABS: Basophils # (auto) 0.02 K/uL (0.00-0.20); Basophils % (auto) 0.3 %; Eosinophils # (auto) 0.15 K/uL (0.00-0.50); Eosinophils % (auto) 1.9 %; Hematocrit (blood only) 43.8 % (42.0-52.0); Hemoglobin 14.7 g/dl (14.0-18.0); Immature Granulocytes # (auto) 0.07 K/uL (0.01-0.20); Immature Granulocytes % (auto) 0.9 %; Lymphocytes # (auto) 1.31 K/uL (1.20-3.40); Lymphocytes % (auto) 16.9 %; Mean Corpuscular Hemoglobin 29.1 pg (25.0-34.0); Mean Corpuscular Hgb Conc 33.6 g/dL (32.0-36.0); Mean Corpuscular Volume 86.7 fL (80.0-100.0); Mean Platelet Volume 9.8 fL (9.4-12.4); Monocytes # (auto) 0.58 K/uL (0.11-0.59); Monocytes % (auto) 7.5 %; Neutrophils % (auto) 72.5 %; Platelet Count 131 K/uL (130-400); RDW Coefficient of Variation 14.9 % (11.5-14.5); RDW Standard Deviation 47.4 fL (36.4-46.3); Red Blood Count 5.05 M/uL (4.70-6.10); White Blood Count 7.73 K/ul (4.8-10.8)
--- NOTE | 2024-06-26 15:58 | XRay Report ---
XR chest 1V portable CLINICAL HISTORY: Chest pain, nonspecific COMPARISON STUDY: 06/15/2024 FINDINGS: Gross cardiomegaly is persistent. Pulmonary vascular congestion is more pronounced. Right b asilar airspace opacity is progressive. Single lead pacemaker/defibrillator remains in place. IMPRESSION: Probable CHF. Right lower lobe pneumonia not excluded. ACT 112: Negative or not required by law. Electronically signed by: Brit Simon M.D. 06/26/2024 3:57 PM
[2024-06-26 16:06] LABS: Albumin Level 3.6 gm/dl (3.4-5.0); BUN Creatinine Ratio 17.1 (10-20); Bilirubin,Total 0.8 mg/dl (0.2-1.0); Calcium 8.7 mg/dl (8.6-10.3); Globulin 3.5 gm/dl (2.5-4.0); Total Protein 7.1 gm/dl (6.0-8.3)
[2024-06-26 16:12] LABS: Troponin I High Sensitivity 12.7 pg/ml (0-20)
[2024-06-26 16:21] LABS: Partial Thromboplastin Ratio 1.1; Partial Thromboplastin Time 29 Seconds (21-31); Prothrombin Time 10.8 Seconds (9.0-12.0)
--- NOTE | 2024-06-26 16:23 | Emergency Department Note ---
Impression & Plan Acute on chronic systolic CHF (congestive heart failure) ED Provider Note HISTORY OF PRESENT ILLNESS: Patient is a 48-year-old male presenting with shortness of breath and lower extremity swelling. Patient reports he has had significant weight gain over the last few days. He states that he was just discharged from the hospital and weighed 309 pounds. He states that he got on his scale today and weighed over 340 pounds. He states he has been taking his diuretics and medications as prescribed at discharge. However, he states that he "just keeps swelling up." Reports that he has been unable to get up and get around for the last 24 hours secondary to being so short of breath with minimal exertion. Patient wears a baseline 4 to 5 L nasal cannula at all times. ROS: as above PHYSICAL EXAM: Constitutional: Patient appears in no acute distress. Morbidly obese HENT: Head: Normocephalic and atraumatic. Eyes: EOMI, PERRL Mouth/Throat: Mucous membranes moist. Neck: Trachea midline. Neck supple. Cardiovascular: RRR, No murmurs, rubs or gallops. Intact distal pulses. Pulmonary/Chest: No respiratory distress. Breath sounds clear and equal bilaterally. No wheezes or rales. On 4L NC. Abdominal: Abdomen soft, no tenderness, rebound or guarding. Musculoskeletal: No tenderness or deformity noted. +2 edema of bilateral lower extremities Skin: Warm and dry. No rash, erythema, pallor or cyanosis Psychiatric: Appropriate mood and affect for situation. Neurological: Alert and keenly responsive. CN II-XII grossly intact, moving all extremities equally and fully. MDM: - Vitals signs showed hypertension - History obtained via patient. History as above. - Chronic conditions affecting care: HFrEF; DM-2; MARIELENA; chronic respiratory failure (on 4L NC at baseline) - Differential diagnoses include, but are not limited to: congestive heart failure; acute coronary syndrome; COPD/asthma exacerbation; pulmonary edema; pulmonary embolism; pneumonia; pneumothorax; viral syndrome - Order placed for continuous cardiac monitoring. At this time, monitor showed rate of 87 bpm with normal sinus rhythm, per my interpretation. - External medical records reviewed. Discharge summary dated 06/17/2024 was reviewed. Patient was admitted for acute on chronic heart failure with reduced ejection fraction. On review of patient's chart, he weighed 148.041 kg on 06/20/2024. Today on arrival to the emergency department, he weighs 157.3 kg. - EKG image interpreted by myself showed normal sinus rhythm. Rate 92 bpm. QT 388. No acute ischemic changes. - Laboratory workup interpreted by myself showed normal WBC; stable electrolytes; normal PT/INR; normal creatinine; normal troponin; elevated BNP (748) - CXR image reviewed by myself showed pulmonary vascular congestion, per my interpretation. Radiology notes probable CHF versus right lower lobe pneumonia not excluded. - Patient given 80 mg IV lasix. - Discussion was had with field nurse case manager about patient's case and need for admission - Hospitalist, Dr. Sky, consulted for admission - Patient admitted to [facility] for further evaluation and management. ASSESSMENT AND PLAN: Diagnosis: Acute on chronic CHF Plan: Admit Past Med/Surg History Problem List (Updated 06/26/24 @ 17:26 by Lexus Santana MD) Acute on chronic systolic CHF (congestive heart failure) (Acute) Acute kidney failure Left knee pain Elevated troponin (Acute) Elevated brain natriuretic peptide (BNP) level (Acute) Hypomagnesemia (Acute) Acute exacerbation of CHF (congestive heart failure) (Acute) Venous stasis dermatitis Non-sustained ventricular tachycardia (Acute) Pulmonary edema (Acute) Lightheadedness (Acute) Dyspnea (Acute) Chronic respiratory failure with hypoxia Acute on chronic heart failure with reduced ejection fraction (HFrEF, <= 40%) Type 2 diabetes mellitus with microalbuminuria Periapical abscess Pulmonary edema (Acute) Hypomagnesemia (Acute) Type 2 diabetes mellitus with peripheral neuropathy Type 2 diabetes mellitus with obesity Diabetic peripheral neuropathy Non-proliferative diabetic retinopathy, both eyes Uncontrolled diabetes mellitus with hyperglycemia Chronic respiratory failure Normocytic anemia Hypertension (Chronic) Poor intravenous access Morbid obesity with BMI of 50.0-59.9, adult Chronic anticoagulation Diabetes mellitus type II, uncontrolled (Chronic) Urinary bladder incontinence Hx of local infection of skin and subcutaneous tissue Ambulatory dysfunction (Chronic) Recurrent infection of skin Pulmonary nodule V tach (Acute) HFrEF (heart failure with reduced ejection fraction) Hemoptysis (Acute) Vitamin D deficiency Medical History Non-sustained ventricular tachycardia Obstructive sleep apnea NICM (nonischemic cardiomyopathy) Pt admitted for elective ICD. Underwent procedure without any complications monitored over night and discharged home. Combined systolic and diastolic heart failure Nonischemic cardiomyopathy, unclear etiology. Difficult to manage. Integrated into heart failure clinic. Frequent admissions for heart failure exacerbations. Echo (05/31) EF=25-30% with mod to severe global hypokinesis, basal kelsi-septal akinetic wall, LVH, RVSP elevated at 30-40mmHg, and mod dilated ascending aorta. Managed medically with ASA + BB + ARB/Neprilysin inhibitor (Entresto) + high dose furosemide (160mg BID) + metolazone (3x weekly). Considering ICD given EF. COPD (chronic obstructive pulmonary disease) Hypomagnesemia Medical non-compliance Intellectual disability Chronic dental pain Small bowel obstruction Housing instability, currently housed, at risk for homelessness Hearing loss of both ears Nonproliferative retinopathy due to secondary diabetes Dilatation of thoracic aorta Iliac aneurysm Vitamin D insufficiency Previously deficient, taking Vit D supplementation Umbilical hernia Lung nodule Fatty liver Surgical History AICD (automatic cardioverter/defibrillator) present H/O oral surgery History of carpal tunnel surgery S/P tonsillectomy History of cholecystectomy Family History Father , age 57 of an [place]. Heart disease Myocardial infarction Mother , age 67 of a ruptured neck vessel Sudden Other Depression Lung disease No pertinent family history Denies family history of Ovarian cancer Prostate cancer Breast cancer Colorectal cancer Social History Smoking Status: Never smoker Tobacco Type: Cigarettes Age Started Using Tobacco: 14; Age Quit Using Tobacco: 18; packs per day: 1; Cigarettes Per Day: 2 PPD; Second Hand Exposure: No; Do You Dip or Chew Tobacco: No; Hx Alcohol Use: No Hx Substance Use: No Preferred Language: Pashto Communication Ability: Effective Visual Impairment: No Limitations Hearing Ability: Normal Elastic Attacher Chainstitch Required: No Beliefs That Will Affect Care: None marital status: Current Living Situation: Family Current Living Situation Comment: Lives at home with current occupational status: unemployed How many Children do You have: 0 Feels Safe at Home: Yes Childhood Exposure to Second-Hand Smoke: Yes Dental Care, Regularly: Yes Physical Activity Frequency: Does not Exercise Seatbelt Use: never Sunscreen Use: No Assistive Devices: Oxygen - Continuous, Walker and Wheelchair Allergies Allergies Allergy/AdvReac Type Severity Reaction Status Date / Time albuterol Allergy Severe proair Verified 06/26/24 17:02 "trouble taking breaths" ceftriaxone Allergy Severe SHORTNESS Verified 06/26/24 17:02 OF BREATH lidocaine Allergy Severe SHORTNESS Verified 06/26/24 17:02 OF BREATH, diaphoretic, hives mushroom Allergy Severe Anaphylaxis Verified 06/26/24 17:02 procaine Allergy Severe SHORTNESS Verified 06/26/24 17:02 OF BREATH, diaphoretic, hives amoxicillin Allergy Intermediate HIVES/FACIAL Verified 06/26/24 17:02 SWELLING clavulanic acid Allergy Intermediate HIVES/FACIAL Verified 06/26/24 17:02 SWELLING lisinopril Allergy Intermediate HIVES Verified 06/26/24 17:02 shellfish derived Allergy Unknown Unknown Verified 06/26/24 17:02 acetaminophen AdvReac Mild NAUSEA Verified 06/26/24 17:02 Fish Containing Products AdvReac Unknown Unknown Verified 06/26/24 17:02 Home Meds Home Medications Medication Instructions Recorded Confirmed nitroglycerin 0.4 mg sublingual 0.4 mg sublingual UD PRN Chest Pain 04/24/19 06/26/24 tablet (Nitrostat) aspirin 81 mg tablet,delayed 81 mg PO QAM 06/16/21 06/26/24 release (Neisha Low Dose Aspirin) albuterol sulfate 2.5 mg/3 mL 2.5 mg inhalation Q6H PRN 12/02/21 06/26/24 (0.083 %) solution for nebulization Shortness Of Breath Or Wheezing budesonide 0.25 mg/2 mL suspension 0.25 mg inhalation DAILY PRN 09/15/22 06/26/24 for nebulization Shortness Of Breath albuterol sulfate 90 mcg/actuation 1 inh inhalation QID PRN Shortness 10/12/23 06/26/24 aerosol inhaler Of Breath Or Wheezing lidocaine 5 % topical patch 1 patch topical DAILY PRN Pain 11/03/23 06/26/24 insulin glargine 100 unit/mL (3 50 unit subcut BID 04/28/24 06/26/24 mL) subcutaneous pen Previous Rx's Medication Instructions Recorded blood-glucose meter (Move In Historyuch #1 ea 10/12/22 Verio Flex Meter) lancets 30 gauge (OneTouch Delica #100 ea 10/12/22 Plus Lancet) Symbicort 160 mcg-4.5 2 inh inhalation BID #3 Inhalers 11/14/22 mcg/actuation HFA aerosol inhaler (budesonide-formoterol) blood sugar diagnostic (OneTouch #100 ea 01/17/23 Verio test strips) pen needle, diabetic 31 gauge x #100 ea 02/16/23/16" (Comfort EZ Pen Duff) hydroxyzine HCl 25 mg tablet 25 mg PO TID PRN itching #90 tabs 05/31/23 trolamine salicylate 10 % topical 1 applic EXT BID PRN left sided 11/06/23 cream (Myoflex) neck pain #35.4 grams blood-glucose sensor (FreeStyle #2 ea 12/13/23 Karla 3 Plus Sensor device) blood-glucose,newspaper vendor,cont #1 ea 01/14/24 (FreeStyle Karla 3 [place]) blood-glucose,newspaper vendor,cont #1 ea 01/14/24 (FreeStyle Karla 3 [place]) atorvastatin 10 mg tablet 10 mg PO DAILY #90 tabs 02/04/24 Farxiga 10 mg tablet 10 mg PO DAILY #90 tabs 04/28/24 (dapagliflozin propanediol) isosorbide mononitrate 60 mg 60 mg PO DAILY #90 tabs 04/28/24 tablet,extended release 24 hr metoprolol succinate 100 mg 100 mg PO BID #180 tabs 04/28/24 tablet,extended release 24 hr sacubitril 97 mg-valsartan 103 mg 1 tab PO BID #180 tabs 04/28/24 tablet (Entresto) torsemide 100 mg tablet 100 mg PO BID #180 tabs 04/28/24 triamcinolone acetonide 0.025 % 1 applic topical TID PRN rash #454 04/28/24 topical cream grams nystatin 100,000 unit/gram topical 1 applic topical BID PRN Skin 05/09/24 powder Irritation #60 grams tirzepatide 7.5 mg/0.5 mL 7.5 mg (0.5 mL) subcut Q7D 30 days 05/09/24 subcutaneous pen injector #2 mL metoprolol succinate 25 mg 25 mg PO BID #60 tabs 05/26/24 tablet,extended release 24 hr Oxygen Home #1 ea 05/29/24 spironolactone 50 mg tablet 50 mg PO BID #60 tabs 06/24/24 Results & Data (ED) Vital Signs Vital Signs - 24 hr 06/26/24 14:50 06/26/24 15:55 06/26/24 15:59 Temperature 36.2 C L 36.6 C Temperature Source Temporal Artery Scan Oral Pulse Rate 102 H Pulse Rhythm Regular Pulse Strength Normal Respiratory Rate 20 Respiratory Depth Normal Blood Pressure 162/119 H Blood Pressure Mean 133 Blood Pressure Position Sitting Pulse Oximetry 92 Oxygen Delivery Method Nasal Cannula Nasal Cannula Oxygen Flow Rate 4 4 Sepsis Recent Fever Within 48 Hours No Sepsis New/Unexplained Change in Mental Status No Sepsis Action Taken by Nursing No Action Required 06/26/24 15:59 06/26/24 16:38 Temperature Temperature Source Pulse Rate 90 Pulse Rhythm Pulse Strength Respiratory Rate Respiratory Depth Blood Pressure Blood Pressure Mean Blood Pressure Position Pulse Oximetry 97 Oxygen Delivery Method Nasal Cannula Oxygen Flow Rate 4 Sepsis Recent Fever Within 48 Hours Sepsis New/Unexplained Change in Mental Status Sepsis Action Taken by Nursing Laboratory Data 06/26/24 15:26 06/26/24 15:26 Lab Results 06/26/24 Range/Units 15:26 WBC 7.73 (4.8-10.8) K/ul RBC 5.05 (4.70-6.10) M/uL Hgb 14.7 (14.0-18.0) g/dl Hct 43.8 (42.0-52.0) % MCV 86.7 (80.0-100.0) fL MCH 29.1 (25.0-34.0) pg MCHC 33.6 (32.0-36.0) g/dL RDW Std Deviation 47.4 H (36.4-46.3) fL RDW Coeff of Zoltan 14.9 H (11.5-14.5) % Plt Count 131 (130-400) K/uL MPV 9.8 (9.4-12.4) fL Immature Gran % (Auto) 0.9 % Neut % (Auto) 72.5 % Lymph % (Auto) 16.9 % [place] % (Auto) 7.5 % Eos % (Auto) 1.9 % Baso % (Auto) 0.3 % Neut # (Auto) 5.60 (1.40-6.50) K/uL Lymph # (Auto) 1.31 (1.20-3.40) K/uL [place] # (Auto) 0.58 (0.11-0.59) K/uL Eos # (Auto) 0.15 (0.00-0.50) K/uL Baso # (Auto) 0.02 (0.00-0.20) K/uL Immature Gran # (Auto) 0.07 (0.01-0.20) K/uL PT 10.8 (9.0-12.0) Seconds INR 1.0 (0.9-1.1) APTT 29 (21-31) Seconds PTT Ratio 1.1 Sodium 138 (136-145) mmol/L Potassium 4.0 (3.5-5.1) mmol/L Chloride 107 (98-107) mmol/L Carbon Dioxide 25 (21-32) mmol/L Anion Gap 6 (3-11) BUN 13 (6-23) mg/dl Creatinine 0.76 (0.6-1.4) mg/dl Est Cr Clr Drug Dosing 179.0 ml/min eGFR 111.56 BUN/Creatinine Ratio 17.1 (10-20) Glucose 145 H (70-99(Fasting)) mg/dl Calcium 8.7 (8.6-10.3) mg/dl Total Bilirubin 0.8 (0.2-1.0) mg/dl AST 16 (13-39) U/L ALT 13 (7-52) U/L Alkaline Phosphatase 80 (34-104) U/L Troponin I High Sens 12.7 (0-20) pg/ml B-Natriuretic Peptide 748 H (0-100) pg/ml Total Protein 7.1 (6.0-8.3) gm/dl Albumin 3.6 (3.4-5.0) gm/dl Globulin 3.5 (2.5-4.0) gm/dl Albumin/Globulin Ratio 1.0 (0.9-2) Administered Medications Discontinued Medications Furosemide (Furosemide 40 Mg/4 Ml Vial) 80 mg IV ONE ONE Stop: 06/26/24 16:37 Last Admin: 06/26/24 17:13 Dose: 80 mg Documented By: PAYAL Imaging Data Radiologist's Impression: Chest X-Ray 06/26/24 14:53 XR chest 1V portable CLINICAL HISTORY: Chest pain, nonspecific COMPARISON STUDY: 06/15/2024 FINDINGS: Gross cardiomegaly is persistent. Pulmonary vascular congestion is more pronounced. Right basilar airspace opacity is progressive. Single lead pacemaker/defibrillator remains in place. IMPRESSION: Probable CHF. Right lower lobe pneumonia not excluded. ACT 112: Negative or not required by law. Electronically signed by: Brit Simon M.D. 06/26/2024 3:57 PM Discharge Plan Visit Data Chief Complaint: Shortness of Breath/Dyspnea Stated Complaint: SOB, FLUID IN LEGS, WEIGHT IS HIGH ED Provider: Lexus Santana Discharge Problem: Acute on chronic systolic CHF (congestive heart failure) Condition: Fair Forms Stand Alone Forms: [email or web address] Prescriptions Prescriptions: No Action (DME) FreeStyle Karla 3 [place] Misc See Rx Instructions .Route Qty: 1 1RF Rx Instructions: moniotr blood sugar (DME) FreeStyle Karla 3 [place] Misc See Rx Instructions .ROUTE .MEDSUPPLY Qty: 1 0RF Rx Instructions: use with karla 3 + sensor tirzepatide 7.5 mg/0.5 mL pen injector 7.5 mg subcut Q7D 30 Days Qty: 2 3RF Rx Instructions: [place] spironolactone 50 mg tablet 50 mg PO BID Qty: 60 1RF (DME) pen needle, diabetic [Comfort EZ Pen Duff] 31 gauge x 5/16" needle See Rx Instructions .Route Qty: 100 3RF Rx Instructions: use when administering insuling daily budesonide 0.25 mg/2 mL suspension for nebulization 0.25 mg inhalation DAILY PRN (Reason: Shortness Of Breath) budesonide-formoterol [Symbicort] 160-4.5 mcg/actuation HFA aerosol inhaler 2 inh inhalation BID Qty: 3 3RF Rx Instructions: 2 puffs twice per day. Rinse mouth after each use (DME) OneTouch Verio test strips Strip See Rx Instructions miscellaneous .MEDSUPPLY Qty: 100 5RF Rx Instructions: check 3x a day (DME) lancets [OneTouch Delica Plus Lancet] 30 gauge misc See Rx Instructions .ROUTE .MEDSUPPLY Qty: 100 5RF Rx Instructions: use new lancet 3x a day (DME) blood-glucose meter [OneTouch Verio Flex meter] [facility] See Rx Instructions .ROUTE .MEDSUPPLY Qty: 1 0RF Rx Instructions: As directed hydroxyzine HCl 25 mg tablet 25 mg PO TID PRN (Reason: itching) Qty: 90 1RF (DME) FreeStyle Karla 3 Plus Sensor Device See Rx Instructions .ROUTE .MEDSUPPLY Qty: 2 11RF Rx Instructions: change sensor every 15 days (DME) Oxygen Home Liters Per Minute See Rx Instructions .MEDSUPPLY Qty: 1 0RF Rx Instructions: Home Oxygen concentrator with portability, test for conserving device. 2-4LMP via n/c at rest/sleep and 2-4 LPM via n/c with exertion; VÍCTOR 99. atorvastatin 10 mg tablet 10 mg PO DAILY Qty: 90 3RF nystatin 100,000 unit/gram powder 1 applic topical BID PRN (Reason: Skin Irritation) Qty: 60 0RF insulin glargine 100 unit/mL (3 mL) insulin pen 50 unit subcut BID triamcinolone acetonide 0.025 % cream 1 applic topical TID PRN (Reason: rash) Qty: 454 0RF isosorbide mononitrate 60 mg tablet extended release 24 hr 60 mg PO DAILY Qty: 90 1RF metoprolol succinate 100 mg tablet extended release 24 hr 100 mg PO BID Qty: 180 1RF Rx Instructions: TOTAL DOSE 125 MG--TAKES WITH 25 MG TAB. dapagliflozin propanediol [Farxiga] 10 mg tablet 10 mg PO DAILY Qty: 90 1RF Entresto 97-103 mg tablet 1 tab PO BID Qty: 180 1RF torsemide 100 mg tablet 100 mg PO BID Qty: 180 1RF Rx Instructions: 100 mg orally twice a day; nitroglycerin [Nitrostat] 0.4 mg tablet, sublingual 0.4 mg sublingual UD PRN (Reason: Chest Pain) aspirin [Neisha Low Dose Aspirin] 81 mg tablet,delayed release (DR/EC) 81 mg PO QAM albuterol sulfate 2.5 mg /3 mL (0.083 %) solution for nebulization 2.5 mg inhalation Q6H PRN (Reason: Shortness Of Breath Or Wheezing) Rx Instructions: Use every 6 hours as needed with nebulizer albuterol sulfate 90 mcg/actuation HFA aerosol inhaler 1 inh inhalation QID PRN (Reason: Shortness Of Breath Or Wheezing) lidocaine 5 % adhesive patch,medicated 1 patch topical DAILY PRN (Reason: Pain) trolamine salicylate [Myoflex] 10 % Cream 1 applic EXT BID PRN (Reason: left sided neck pain) Qty: 35.4 0RF Rx Instructions: Please give tube from hospital metoprolol succinate 25 mg tablet extended release 24 hr 25 mg PO BID Qty: 60 0RF Rx Instructions: TOTAL DOSE 125 MG--TAKES WITH 100 MG TAB. Referrals Referrals: Gosia Martinez MD [Primary Care Provider] -
[2024-06-26] MEDS: FUROSEMIDE 40 MG/4 ML VIAL IV ONE (17:13)
--- NOTE | 2024-06-26 17:23 | Electrocardiogram Report ---
Test Reason : Blood Pressure : */* mmHG Vent. Rate : 92 BPM Atrial Rate : 92 BPM P-R Int : 182 ms QRS Dur : 114 ms QT Int : 388 ms P-R-T Axes : 45 -47 100 degrees QTcB Int : 479 ms Normal sinus rhythm Possible Left atrial enlargement Left axis deviation Minimal voltage criteria for LVH, may be normal variant T wave abnormality, consider lateral ischemia Abnormal ECG When compared with ECG of 12-Jun-2024 21:26, No significant change was found Confirmed by Bertrand Polanco ([id number]) on 06/26/2024 5:23:24 PM Referred By: Confirmed By: Bertrand Polanco
[2024-06-26] MEDS ORDERED: LIDOCAINE 5% 1 PATCH TD PRN (17:35)
[2024-06-26] MEDS ORDERED: hydrOXYzine HCl 25 MG TAB PO PRN (17:35)
[2024-06-26] MEDS ORDERED: NITROGLYCERIN SL 0.4 MG/TAB TAB SL PRN (17:35)
[2024-06-26] MEDS ORDERED: NYSTATIN POWDER 15GM BTL EXT PRN (17:35)
[2024-06-26] MEDS ORDERED: TRIAMCINOLONE ACET 0.025% CR 15 GM TUBE TOP PRN (17:37)
[2024-06-26] MEDS ORDERED: TROLAMINE SALICYLATE 10% CRM 255 APPLN/85 GM TUBE EXT PRN (17:37)
[2024-06-26] MEDS ORDERED: GLUCAGON FOR INJ 1 MG VIAL SQ PRN (17:45)
[2024-06-26] MEDS ORDERED: GLUCOSE 40% GEL 15 GM TUBE PO PRN (17:45)
[2024-06-26] MEDS ORDERED: DEXTROSE 50% 50 ML SYRINGE IV PRN (17:45)
[2024-06-26] MEDS ORDERED: GLUCOSE 10 TAB/TUBE PO PRN (17:45)
[2024-06-26] MEDS ORDERED: CARBOHYDRATES FOR HYPOGLYCEMIA PO PRN (17:45)
--- NOTE | 2024-06-26 17:49 | History & Physical Report ---
Date of Service June 26, 2024 Assessment & Plan (1) Acute on chronic systolic CHF (congestive heart failure): Plan 48 year old male well known to the service with chronic heart failure with reduced ejection fraction presents to the ER with increased weight and shortness of breath after reccent discharge for acute on chronic HFrEF,. Known history of non compliance. #Acute on chronic heart failure with reduced ejection fraction / Hypomagnesemia BNP increased from 71 to 700s Echo 09/2023 with LVEF 15-20%. Unclear cause of exacerbation but compliance has been an issue in the past, he also request to discuss with fugitive detective regarding salt intake, will also get pacemaker/ICD check to see if he has been having increased runs on [place] Switch torsemide to Lasix 40 mg IV BID. Patient already recevied 40 mg of IV lasix this AM so will give another 40 mg tonight and will recheck in morning. Lat admission patient became dry and required IVF prior to discharge. Continue spironolactone, metoprolol succinate and Entresto at his usual dosing Hold Jardiance Strict I's and O's, daily standing weights CPAP HS Patient is not requiring more oxygen, hoping for a short hospital stay. #Type 2 diabetes On Lantus 50 units BID as an outpatient however inpatient usually requires 30 to 35 units Lantus Will continue his usual inpatient dosing with Lantus 30 units QAM NovoLog - #Chronic hypoxic respiratory failure Baseline 4-5LPM O2, aim O2 sats > 88% VTE Prophylaxis - chemical prophylaxis deferred due to significant abdominal ecchymosis, SCDs, encourage ambulation Diet - low Na, heart healthy, T2DM Disposition - admit to PCU History of Present Illness Chief Complaint: SOB upon exertion. Primary Care Provider: Gosia Martinez MD 48 yo male M well known to the service with repeated hospitalizations for non ischemic cardiomyopathy causing acute on chronic HFrEF who presents to the ER with shortness of breath and weight gain. He was most recently discharged about 10 days ago. He is now using is CPAP at home. Patient reports his weight has continued toincrease over the course of these past few days leading to worseneing SOB on exertion. No chest pain. He reports taking medications as prescribed without increased fluid or salt intake although he has notably had some issues with compliance in the past. Last echocardiogram in September 2023 with LVEF 15-20%. Patient however remains on his baseline oxygen supplementation Allergies Allergy/AdvReac Type Severity Reaction Status Date / Time albuterol Allergy Severe proair Verified 06/26/24 17:02 "trouble taking breaths" ceftriaxone Allergy Severe SHORTNESS Verified 06/26/24 17:02 OF BREATH lidocaine Allergy Severe SHORTNESS Verified 06/26/24 17:02 OF BREATH, diaphoretic, hives mushroom Allergy Severe Anaphylaxis Verified 06/26/24 17:02 procaine Allergy Severe SHORTNESS Verified 06/26/24 17:02 OF BREATH, diaphoretic, hives amoxicillin Allergy Intermediate HIVES/FACIAL Verified 06/26/24 17:02 SWELLING clavulanic acid Allergy Intermediate HIVES/FACIAL Verified 06/26/24 17:02 SWELLING lisinopril Allergy Intermediate HIVES Verified 06/26/24 17:02 shellfish derived Allergy Unknown Unknown Verified 06/26/24 17:02 acetaminophen AdvReac Mild NAUSEA Verified 06/26/24 17:02 Fish Containing Products AdvReac Unknown Unknown Verified 06/26/24 17:02 Home Medications Medication Instructions Recorded Confirmed Type nitroglycerin 0.4 mg sublingual 0.4 mg sublingual UD PRN Chest Pain 04/24/19 06/26/24 History tablet (Nitrostat) aspirin 81 mg tablet,delayed 81 mg PO QAM 06/16/21 06/26/24 History release (Neisha Low Dose Aspirin) albuterol sulfate 2.5 mg/3 mL 2.5 mg inhalation Q6H PRN 12/02/21 06/26/24 History (0.083 %) solution for nebulization Shortness Of Breath Or Wheezing budesonide 0.25 mg/2 mL suspension 0.25 mg inhalation DAILY PRN 09/15/22 06/26/24 History for nebulization Shortness Of Breath blood-glucose meter ([email or web address] #1 ea 10/12/22 06/20/24 Rx Verio Flex Meter) lancets 30 gauge ([email or web address] Delica #100 ea 10/12/22 06/20/24 Rx Plus Lancet) Symbicort 160 mcg-4.5 2 inh inhalation BID #3 Inhalers 11/14/22 06/26/24 Rx mcg/actuation HFA aerosol inhaler (budesonide-formoterol) blood sugar diagnostic ([employer] #100 ea 01/17/23 06/20/24 Rx Verio test strips) pen needle, diabetic 31 gauge x #100 ea 02/16/23 06/20/24 Rx 5/16" (Comfort EZ Pen [place]) hydroxyzine HCl 25 mg tablet 25 mg PO TID PRN itching #90 tabs 05/31/23 06/26/24 Rx albuterol sulfate 90 mcg/actuation 1 inh inhalation QID PRN Shortness 10/12/23 06/26/24 History aerosol inhaler Of Breath Or Wheezing lidocaine 5 % topical patch 1 patch topical DAILY PRN Pain 11/03/23 06/26/24 History trolamine salicylate 10 % topical 1 applic EXT BID PRN left sided 11/06/23 06/26/24 Rx cream (Myoflex) neck pain #35.4 grams blood-glucose sensor (FreeStyle #2 ea 12/13/23 06/20/24 Rx Karla 3 Plus Sensor device) blood-glucose,regulatory technician,cont #1 ea 01/14/24 06/20/24 Rx (FreeStyle Karla 3 [place]) blood-glucose,regulatory technician,cont #1 ea 01/14/24 06/20/24 Rx (FreeStyle Karla 3 [place]) atorvastatin 10 mg tablet 10 mg PO DAILY #90 tabs 02/04/24 06/26/24 Rx Farxiga 10 mg tablet 10 mg PO DAILY #90 tabs 04/28/24 06/26/24 Rx (dapagliflozin propanediol) insulin glargine 100 unit/mL (3 50 unit subcut BID 04/28/24 06/26/24 History mL) subcutaneous pen isosorbide mononitrate 60 mg 60 mg PO DAILY #90 tabs 04/28/24 06/26/24 Rx tablet,extended release 24 hr metoprolol succinate 100 mg 100 mg PO BID #180 tabs 04/28/24 06/26/24 Rx tablet,extended release 24 hr sacubitril 97 mg-valsartan 103 mg 1 tab PO BID #180 tabs 04/28/24 06/26/24 Rx tablet (Entresto) torsemide 100 mg tablet 100 mg PO BID #180 tabs 04/28/24 06/26/24 Rx triamcinolone acetonide 0.025 % 1 applic topical TID PRN rash #454 04/28/24 06/26/24 Rx topical cream grams nystatin 100,000 unit/gram topical 1 applic topical BID PRN Skin 05/09/24 06/26/24 Rx powder Irritation #60 grams tirzepatide 7.5 mg/0.5 mL 7.5 mg (0.5 mL) subcut Q7D 30 days 05/09/24 06/26/24 Rx subcutaneous pen injector #2 mL metoprolol succinate 25 mg 25 mg PO BID #60 tabs 05/26/24 06/26/24 Rx tablet,extended release 24 hr Oxygen Home #1 ea 05/29/24 06/20/24 Rx spironolactone 50 mg tablet 50 mg PO BID #60 tabs 06/24/24 06/26/24 Rx Past Med/Surg History Problem List Acute on chronic systolic CHF (congestive heart failure) (Acute) Acute kidney failure Left knee pain Elevated troponin (Acute) Elevated brain natriuretic peptide (BNP) level (Acute) Hypomagnesemia (Acute) Acute exacerbation of CHF (congestive heart failure) (Acute) Venous stasis dermatitis Non-sustained ventricular tachycardia (Acute) Pulmonary edema (Acute) Lightheadedness (Acute) Dyspnea (Acute) Chronic respiratory failure with hypoxia Acute on chronic heart failure with reduced ejection fraction (HFrEF, <= 40%) Type 2 diabetes mellitus with microalbuminuria Periapical abscess Pulmonary edema (Acute) Hypomagnesemia (Acute) Type 2 diabetes mellitus with peripheral neuropathy Type 2 diabetes mellitus with obesity Diabetic peripheral neuropathy Non-proliferative diabetic retinopathy, both eyes Uncontrolled diabetes mellitus with hyperglycemia Chronic respiratory failure Normocytic anemia Hypertension (Chronic) Poor intravenous access Morbid obesity with BMI of 50.0-59.9, adult Chronic anticoagulation Diabetes mellitus type II, uncontrolled (Chronic) Urinary bladder incontinence Hx of local infection of skin and subcutaneous tissue Ambulatory dysfunction (Chronic) Recurrent infection of skin Pulmonary nodule V tach (Acute) HFrEF (heart failure with reduced ejection fraction) Hemoptysis (Acute) Vitamin D deficiency Medical History Non-sustained ventricular tachycardia Obstructive sleep apnea NICM (nonischemic cardiomyopathy) Pt admitted for elective ICD. Underwent procedure without any complications monitored over night and discharged home. Combined systolic and diastolic heart failure Nonischemic cardiomyopathy, unclear etiology. Difficult to manage. Integrated into heart failure clinic. Frequent admissions for heart failure exacerbations. Echo (05/31) EF=25-30% with mod to severe global hypokinesis, basal kelsi-septal akinetic wall, LVH, RVSP elevated at 30-40mmHg, and mod dilated ascending aorta. Managed medically with ASA + BB + ARB/Neprilysin inhibitor (Entresto) + high dose furosemide (160mg BID) + metolazone (3x weekly). Considering ICD given EF. COPD (chronic obstructive pulmonary disease) Hypomagnesemia Medical non-compliance Intellectual disability Chronic dental pain Small bowel obstruction Housing instability, currently housed, at risk for homelessness Hearing loss of both ears Nonproliferative retinopathy due to secondary diabetes Dilatation of thoracic aorta Iliac aneurysm Vitamin D insufficiency Previously deficient, taking Vit D supplementation Umbilical hernia Lung nodule Fatty liver Surgical History AICD (automatic cardioverter/defibrillator) present H/O oral surgery History of carpal tunnel surgery S/P tonsillectomy History of cholecystectomy Family History Father , age 57 of an [place]. Heart disease Myocardial infarction Mother , age 67 of a ruptured neck vessel Sudden Other Depression Lung disease No pertinent family history Denies family history of Ovarian cancer Prostate cancer Breast cancer Colorectal cancer Social History Smoking Status: Never smoker Age Started Using Tobacco: 14; Age Quit Using Tobacco: 18; packs per day: 1; Second Hand Exposure: No; Hx Alcohol Use: No Hx Substance Use: No Preferred Language: Maori Communication Ability: Effective Visual Impairment: No Limitations Hearing Ability: Normal Stamp Analyst Required: No Beliefs That Will Affect Care: None marital status: Current Living Situation: Family Current Living Situation Comment: Lives at home with current occupational status: unemployed How many Children do You have: 0 Feels Safe at Home: Yes Childhood Exposure to Second-Hand Smoke: Yes Dental Care, Regularly: Yes Physical Activity Frequency: Does not Exercise Seatbelt Use: never Sunscreen Use: No Assistive Devices: Oxygen - Continuous, Walker and Wheelchair Review of Systems Constitutional: no fever Eyes: no blind spots Ear, Nose, Mouth, Throat: no ear pain Respiratory: + dyspnea and + dyspnea on exertion; no cough Cardiovascular: no chest pain Gastrointestinal: no abdominal pain Genitourinary: no dysuria Musculoskeletal: no back pain Integumentary: no acne and no lesions Neurologic: no gait abnormality Psychiatric: no behavioral changes Endocrine: + fatigue Hematologic / Lymphatic: no easy bleeding Allergy / Immunological: no GI upset with certain foods Physical Exam Physical Exam: Constitutional: WD/WN, vitals as above ENMT: external ear and nose normal, oropharynx normal Respiratory: normal respiratory effort; no respiratory distress Auscultation: + crackles (bibasal) Cardiovascular: Rate/Rhythm: regular rate and regular rhythm Extremities: normal capillary refill and + pedal edema Gastrointestinal (Abdomen): normal bowel sounds, soft, nontender, no hepatosplenomegaly Skin: + ecchymosis (over abdomen) Neurologic: moves all extremities and awake; not confused Psychiatric: A+Ox3, euthymic affect Results & Data Results & Data Vital Signs (Past 12 Hours) Vital Signs Temp Pulse Resp BP Pulse Ox O2 Del Method O2 Flow Rate 06/26/24 16:38 90 06/26/24 15:59 97 Nasal Cannula 4 06/26/24 15:59 Nasal Cannula 4 06/26/24 15:55 36.6 C 06/26/24 14:50 36.2 C L 102 H 20 162/119 H 92 Nasal Cannula 4 PG Care Time/CCT Total # of Minutes Spent Total Time Spent with Patient: Total time spent is greater than 50% in coordination of care (as documented) at patient's floor/unit and/or counseling patient: Coding Level of Care Code 01206 INT INP/OBS CARE 3/75MIN Diagnoses Acute on chronic systolic CHF (congestive heart failure) I50.23
[2024-06-26] MEDS: INSULIN ASPART PER UNIT CHARGE SC SCH (19:44)
[2024-06-26] MEDS: SPIRONOLACTONE 25 MG TAB PO SCH (21:46)
[2024-06-26] MEDS: METOPROLOL SUCC 25MG EXT REL TAB PO SCH (21:47)
[2024-06-26] MEDS: METOPROLOL SUCC 50MG EXT REL TAB PO SCH (21:47)
[2024-06-26] MEDS: LANTUS PER UNIT CHARGE SC SCH (21:48)
[2024-06-26] MEDS: FUROSEMIDE 40 MG/4 ML VIAL IV SCH (21:48)
[2024-06-27] MEDS ORDERED: PHARMACY GLYCEMIC MGMT CONSULT PRN (06:48)
[2024-06-27] MEDS: TORSEMIDE 100 MG TAB PO SCH (07:16)
[2024-06-27 07:33] LABS: Hematocrit (blood only) 45.2 % (42.0-52.0); Hemoglobin 15.4 g/dl (14.0-18.0); Mean Corpuscular Hemoglobin 29.7 pg (25.0-34.0); Mean Corpuscular Hgb Conc 34.1 g/dL (32.0-36.0); Mean Corpuscular Volume 87.1 fL (80.0-100.0); Mean Platelet Volume 10.2 fL (9.4-12.4); Platelet Count 134 K/uL (130-400); RDW Coefficient of Variation 14.7 % (11.5-14.5); Red Blood Count 5.19 M/uL (4.70-6.10); White Blood Count 8.53 K/ul (4.8-10.8)
[2024-06-27 07:56] LABS: BUN Creatinine Ratio 16.7 (10-20); C Reactive Protein 1.54 mg/dl (0-0.5); Calcium 8.9 mg/dl (8.6-10.3); Creatinine Clr Calc Pharmacy 159.9 ml/min; Potassium 3.5 mmol/L (3.5-5.1)
[2024-06-27] MEDS: ISOSORBIDE MONO EXTENDED REL 60 MG TABCR PO SCH (08:15)
[2024-06-27] MEDS: ASPIRIN 81 MG ECTAB PO SCH (08:15)
[2024-06-27] MEDS: VALSARTAN/SACUBITRIL 103/97MG TAB PO SCH (08:16)
[2024-06-27] MEDS: ATORVASTATIN 10 MG TAB PO SCH (08:16)
[2024-06-27] MEDS: FLUTICASONE/VILANTEROL 100/25MCG 14 PUFFS/INHALER INH SCH (08:17)
[2024-06-27] MEDS: POTASSIUM CHLORIDE CRTAB 20 MEQ TABCR PO STA (08:23)
[2024-06-27] MEDS ORDERED: LANTUS PER UNIT CHARGE SC SCH (09:00)
--- NOTE | 2024-06-27 11:59 | Hospitalist Progress Note ---
Date of Service June 27, 2024 Assessment & Plan (1) Acute on chronic systolic CHF (congestive heart failure): Plan: Known ejection fraction of 15%. Unfortunately he has had frequent recent hospitalizations. This brings into question diet compliance and medication compliance at home. He is undergoing brisk diuresis now with parenteral Lasix. No acute distress. Will repeat chest x-ray again tomorrow, June 28 (2) Chronic respiratory failure with hypoxia: Plan: He is at his baseline oxygen use at this time. Will attempt to keep saturation greater than 90% (3) Type 2 diabetes mellitus with obesity: Plan: Insulin is currently on hold due to hypoglycemia this morning. Continue ADA diet and sliding scale coverage (4) Hypertension: Plan: Stable. Continue current medical management (5) Morbid obesity with BMI of 50.0-59.9, adult: Plan: Significant weight loss recommended (6) Hypokalemia: Plan: Due to brisk diuresis. Potassium level 3.5 today, June 27. Oral potassium replacement ordered. Serial labs Plan Hopeful discharge to home tomorrow, June 28 Admission and Anticipated Discharge Date Admission Date: June 26, 2024 Subjective Alert and oriented. No complaints. Lantus insulin placed on hold due to hypoglycemia. Brisk diuresis with parenteral Lasix. He is on 4 L of oxygen per nasal cannula. He normally uses this much at home. Will repeat chest x-ray again tomorrow, June 28. Hopefully he can go home tomorrow, June 28. Potassium is down to 3.5 with parenteral diuresis. Oral potassium supplementation ordered. Most recent cardiac echo was done in September 2023 which reveals ejection fraction of 15 to 20%. Review of Systems 2 Review of Systems: Constitutionalno fever or chills ENTno blurred vision, no double vision, no epistaxis, no sore throat Respiratoryno cough, no wheezing, no shortness of breath at rest. He does have dyspnea on exertion Cardiacno palpitations, no chest pain, no syncope [place] nausea, vomiting, diarrhea, melena, hematochezia GUno urinary retention, no urinary incontinence, no dysuria, no hematuria Musculoskeletalno joint pain, no muscle tenderness. Peripheral leg edema has worsened with weight gain Skinno bruising, no rashes, no pruritus Neurono isolated weakness, no paresthesia, no weakness Psychno depression, no anxiety Physical Exam 2 Physical Exam: General-alert and oriented x3, no fever, no chills. Obese HEENT-head atraumatic and normocephalic, pupils equal and reactive to light, extraocular muscles intact Neck-no lymphadenopathy or thyromegaly, trachea midline Chest-diminished breath sounds in both bases. Faint inspiratory rales. No wheezing. No rhonchi Cardiac-regular rate and rhythm, normal S1 and S2 Abdomen-normal bowel sounds, no hepatosplenomegaly [id number]+ pitting edema bilateral lower extremities below the knees Neuro-cranial nerves II through XII intact, motor and sensory function within normal limits, strength symmetrical, no focal deficits Psych-normal affect, normal mood Results & Data Results & Data Vital Signs (Past 12 Hours) Vital Signs Temp Pulse Pulse Resp BP Pulse Ox O2 Del Method 06/27/24 11:34 36.5 C 81 16 144/95 H 96 CPAP 06/27/24 07:56 Nasal Cannula 06/27/24 07:41 36.4 C L 81 20 147/89 H 95 Room Air 06/27/24 07:38 64 06/27/24 03:15 36.6 C 82 22 145/96 H 99 CPAP O2 Flow Rate 06/27/24 11:34 06/27/24 07:56 4 06/27/24 07:41 06/27/24 07:38 06/27/24 03:15 Laboratory Results 06/27/24 05:52 06/27/24 05:52 PG Care Time/CCT Total # of Minutes Spent Total Time Spent with Patient: Total time spent is greater than 50% in coordination of care (as documented) at patient's floor/unit and/or counseling patient: Coding Level of Care Code 04495 SUB INP/OBS CARE 3/50MIN Diagnoses Acute on chronic systolic CHF (congestive heart failure) I50.23 Chronic respiratory failure with hypoxia J96.11 Type 2 diabetes mellitus with obesity E11.69; E66.9 Hypertension I10 Hypertension type: unspecified Morbid obesity with BMI of 50.0-59.9, adult E66.01; Z68.43 Hypokalemia E87.6 (4) Hypertension Hypertension type: unspecified Qualified Code(s): I10 - Essential (primary) hypertension
[2024-06-27 19:47] VITALS: RESP 18
[2024-06-27] MEDS: IBUPROFEN 200 MG/10 ML UDC PO STA (21:26)
[2024-06-27] MEDS: IBUPROFEN 600 MG TAB PO STA (21:28)
[2024-06-28 06:42] LABS: Calcium 9.1 mg/dl (8.6-10.3); Creatinine Clr Calc Pharmacy 126.7 ml/min; Potassium 4.2 mmol/L (3.5-5.1)
[2024-06-28 07:33] VITALS: TEMP 98.1; O2SAT 96
--- NOTE | 2024-06-28 08:17 | XRay Report ---
EXAM: XR chest 1V portable CLINICAL HISTORY: CHF TECHNIQUE: Radiograph of chest was acquired. COMPARISON: CR dated 06/15/2024 06:01:00 [employer]. FINDINGS: Cardia appears enlarged. Few ill-defined opacities are seen in right lower zones. Rest of the lungs are clear and well-expanded with no pulmonary infiltrate or pleural effusion. The cardiomediastinal silhouette is within normal limits. No acute osseous abnormality. IMPRESSION: 1. Mild cardiomegaly. 2. Few ill-defined opacities in right lower zones. 3. No significant interval change. Electronically signed by Charlie Palumbo 06-28-2024 08:16 AM
[2024-06-28] MEDS: BUDESONIDE 0.25 MG/2 ML VIAL (PULMICORT) INH PRN (08:51)
--- NOTE | 2024-06-28 10:43 | Discharge Summary ---
Discharge Summary Date of Service June 28, 2024 Principal Dx & Hospital Course #1 = Principal Diagnosis (1) Acute on chronic systolic CHF (congestive heart failure): Known ejection fraction of 15%. Unfortunately he has had frequent recent hospitalizations. This brings into question diet compliance and medication compliance at home. He is undergoing brisk diuresis now with parenteral Lasix. Chest x-ray done today, June 28, looks better. Will switch Bumex to Lasix at the time of discharge. (2) Chronic respiratory failure with hypoxia: He is at his baseline oxygen use at this time. Will attempt to keep saturation greater than 90% (3) Type 2 diabetes mellitus with obesity: Insulin therapy held while hospitalized due to hypoglycemia. He will resume his usual diabetic management at discharge. Continue ADA diet and sliding scale coverage while hospitalized (4) Hypertension: Stable. Continue current medical management (5) Morbid obesity with BMI of 50.0-59.9, adult: Significant weight loss recommended (6) Hypokalemia: Due to brisk diuresis. Potassium level 4.2 today, June 28. Oral potassium replacement ordered while hospitalized. Serial labs Plan Home today, June 28 Admission HPI Per Admitting Provider 48 yo male M well known to the service with repeated hospitalizations for non ischemic cardiomyopathy causing acute on chronic HFrEF who presents to the ER with shortness of breath and weight gain. He was most recently discharged about 10 days ago. He is now using is CPAP at home. Patient reports his weight has continued toincrease over the course of these past few days leading to worseneing SOB on exertion. No chest pain. He reports taking medications as prescribed without increased fluid or salt intake although he has notably had some issues with compliance in the past. Last echocardiogram in September 2023 with LVEF 15-20%. Patient however remains on his baseline oxygen supplementation Discharge Exam General-alert and oriented x3, no fever, no chills. Obese HEENT-head atraumatic and normocephalic, pupils equal and reactive to light, extraocular muscles intact Neck-no lymphadenopathy or thyromegaly, trachea midline Chest-diminished breath sounds in both bases. Faint inspiratory rales. No wheezing. No rhonchi Cardiac-regular rate and rhythm, normal S1 and S2 Abdomen-normal bowel sounds, no hepatosplenomegaly [id number]+ pitting edema bilateral lower extremities below the knees Neuro-cranial nerves II through XII intact, motor and sensory function within normal limits, strength symmetrical, no focal deficits Psych-normal affect, normal mood Discharge Plan Discharge Items Patient Disposition: Home - Self-Care Reason For Visit: CHF Discharge Diagnosis: Acute on chronic systolic congestive heart failure, known ejection fraction 15% Condition on Discharge: Good Activity: Resume your previous activity Non-emergency contact: Primary Care Provider and Co Teacher Call non-emergency contact if: your symptoms worsen Follow-up/Referrals: Gosia Martinez MD [Primary Care Provider] - Diet: Carb Consistent or DM2 and Heart Healthy Addtl Attending Provider Instructions: Torsemide water pill has been stopped. Take Lasix (furosemide) 80 mg twice daily in its place. All other medications remain the same Pending Studies at Discharge: No Stand-Alone Forms: My [place], Smoking Cessation Medications and DC Order Prescriptions: New furosemide 80 mg tablet 80 mg PO BID Qty: 60 0RF Continued (DME) FreeStyle Karla 3 [place] Misc See Rx Instructions .Route Qty: 1 1RF Rx Instructions: moniotr blood sugar (DME) FreeStyle Karla 3 [place] Misc See Rx Instructions .ROUTE .MEDSUPPLY Qty: 1 0RF Rx Instructions: use with karla 3 + sensor tirzepatide 7.5 mg/0.5 mL pen injector 7.5 mg subcut Q7D 30 Days Qty: 2 3RF Rx Instructions: [place] spironolactone 50 mg tablet 50 mg PO BID Qty: 60 1RF (DME) pen needle, diabetic [Comfort EZ Pen [place]ter] 31 gauge x 5/16" needle See Rx Instructions .Route Qty: 100 3RF Rx Instructions: use when administering insuling daily budesonide 0.25 mg/2 mL suspension for nebulization 0.25 mg inhalation DAILY PRN (Reason: Shortness Of Breath) budesonide-formoterol [Symbicort] 160-4.5 mcg/actuation HFA aerosol inhaler 2 inh inhalation BID Qty: 3 3RF Rx Instructions: 2 puffs twice per day. Rinse mouth after each use (DME) OneTouch Verio test strips Strip See Rx Instructions miscellaneous .MEDSUPPLY Qty: 100 5RF Rx Instructions: check 3x a day (DME) lancets [OneTouch Delica Plus Lancet] 30 gauge misc See Rx Instructions .ROUTE .MEDSUPPLY Qty: 100 5RF Rx Instructions: use new lancet 3x a day (DME) blood-glucose meter [OneTouch Verio Flex meter] Misc See Rx Instructions .ROUTE .MEDSUPPLY Qty: 1 0RF Rx Instructions: As directed hydroxyzine HCl 25 mg tablet 25 mg PO TID PRN (Reason: itching) Qty: 90 1RF (DME) FreeStyle Karla 3 Plus Sensor Device See Rx Instructions .ROUTE .MEDSUPPLY Qty: 2 11RF Rx Instructions: change sensor every 15 days (DME) Oxygen Home Liters Per Minute See Rx Instructions .MEDSUPPLY Qty: 1 0RF Rx Instructions: Home Oxygen concentrator with portability, test for conserving device. 2-4LMP via n/c at rest/sleep and 2-4 LPM via n/c with exertion; VÍCTOR 99. atorvastatin 10 mg tablet 10 mg PO DAILY Qty: 90 3RF nystatin 100,000 unit/gram powder 1 applic topical BID PRN (Reason: Skin Irritation) Qty: 60 0RF insulin glargine 100 unit/mL (3 mL) insulin pen 50 unit subcut BID triamcinolone acetonide 0.025 % cream 1 applic topical TID PRN (Reason: rash) Qty: 454 0RF isosorbide mononitrate 60 mg tablet extended release 24 hr 60 mg PO DAILY Qty: 90 1RF metoprolol succinate 100 mg tablet extended release 24 hr 100 mg PO BID Qty: 180 1RF Rx Instructions: TOTAL DOSE 125 MG--TAKES WITH 25 MG TAB. dapagliflozin propanediol [Farxiga] 10 mg tablet 10 mg PO DAILY Qty: 90 1RF Entresto 97-103 mg tablet 1 tab PO BID Qty: 180 1RF torsemide 100 mg tablet 100 mg PO BID Qty: 180 1RF Rx Instructions: 100 mg orally twice a day; nitroglycerin [Nitrostat] 0.4 mg tablet, sublingual 0.4 mg sublingual UD PRN (Reason: Chest Pain) aspirin [Neisha Low Dose Aspirin] 81 mg tablet,delayed release (DR/EC) 81 mg PO QAM albuterol sulfate 2.5 mg /3 mL (0.083 %) solution for nebulization 2.5 mg inhalation Q6H PRN (Reason: Shortness Of Breath Or Wheezing) Rx Instructions: Use every 6 hours as needed with nebulizer albuterol sulfate 90 mcg/actuation HFA aerosol inhaler 1 inh inhalation QID PRN (Reason: Shortness Of Breath Or Wheezing) lidocaine 5 % adhesive patch,medicated 1 patch topical DAILY PRN (Reason: Pain) trolamine salicylate [Myoflex] 10 % Cream 1 applic EXT BID PRN (Reason: left sided neck pain) Qty: 35.4 0RF Rx Instructions: Please give tube from hospital metoprolol succinate 25 mg tablet extended release 24 hr 25 mg PO BID Qty: 60 0RF Rx Instructions: TOTAL DOSE 125 MG--TAKES WITH 100 MG TAB. Discharge Orders: Discharge Order- CHF (Routine); Ordered 06/28/24 Ordered By: Wilfredo Pascal Admission Data Admit Date/Time: 06/26/24 17:41 Attending Provider: Wilfredo Pascal Admit Provider: Shemar Sky Primary Care Provider: Gosia Martinez Other Providers: Shemar Sky Hospital Stay Data Consultations 06/26/24 17:12 ED Decision to Admit Stat Pending Results Patient Have Any Pending Studies at Discharge: No Discharge Instructions Given to Patient (Per Discharging Provider) Torsemide water pill has been stopped. Take Lasix (furosemide) 80 mg twice daily in its place. All other medications remain the same Total Time Total Time Spent Total Time Spent (In Minutes): 50 minutes Coding Level of Care Code 51233 INP/OBS DISCH >30 MIN Diagnoses Acute on chronic systolic CHF (congestive heart failure) I50.23 Chronic respiratory failure with hypoxia J96.11 Type 2 diabetes mellitus with obesity E11.69; E66.9 Hypertension I10 Hypertension type: unspecified Morbid obesity with BMI of 50.0-59.9, adult E66.01; Z68.43 Hypokalemia E87.6
[2024-06-28 10:45] VITALS: BP 147/86; PULSE 60
== END 2024-06-28 12:08 | disposition home or self-care (01) ==
LOC: 2S 14:44 → ED 14:44 → SUATTDRO 17:41 → 2S 20:06

== ENCOUNTER 2024-08-22 18:18 | Inpatient (IN) ==
[2024-08-22 18:59] LABS: Hematocrit (blood only) 47.0 % (42.0-52.0); Hemoglobin 16.1 g/dl (14.0-18.0); Immature Granulocytes # (auto) 0.03 K/uL (0.01-0.20); Immature Granulocytes % (auto) 0.4 %; Mean Corpuscular Hemoglobin 29.1 pg (25.0-34.0); Mean Corpuscular Volume 84.8 fL (80.0-100.0); Platelet Count 113 K/uL (130-400); RDW Standard Deviation 44.6 fL (36.4-46.3); Red Blood Count 5.54 M/uL (4.70-6.10); White Blood Count 6.77 K/ul (4.8-10.8)
[2024-08-22 19:13] LABS: Alanine Aminotransferase 11.0 U/L (7-52); Albumin Globulin Ratio 0.9 (0.9-2); Alkaline Phosphatase 98.0 U/L (34-104); Anion Gap 9.0 (3-11); Bilirubin,Total 1.0 mg/dl (0.2-1.0); Blood Urea Nitrogen 14.0 mg/dl (6-23); Calcium 8.6 mg/dl (8.6-10.3); Carbon Dioxide 21.0 mmol/L (21-32); Chloride 105.0 mmol/L (98-107); Creatinine Clr Calc Pharmacy 148.0 ml/min; Globulin 4.0 gm/dl (2.5-4.0); Glucose 204.0 mg/dl (70-99(Fasting)); Lipase 18.0 U/L (11-82); Potassium 3.7 mmol/L (3.5-5.1); Sodium 135.0 mmol/L (136-145); Total Protein 7.7 gm/dl (6.0-8.3)
[2024-08-22] MEDS: OPTIRAY 320 125ml IV ONE (19:28)
--- NOTE | 2024-08-22 20:29 | XRay Report ---
EXAM: XR chest 1V portable CLINICAL HISTORY: Chest pain, nonspecific TECHNIQUE: An X-ray image of the chest is obtained in AP projection. COMPARISON: 06/28/2024 CR FINDINGS: Pulmonary Parenchyma: Inhomogenous likely airspace opacities in the right lower lung zone, mild increase when compared to prior. No evidence of consolidation, collapse, or focal opacities. No pulmonary nodules are identified. Both costophrenic angles are partially obscured. Heart and Mediastinum: Cardiomegaly. No mediastinal widening or masses. No hilar or mediastinal lymphadenopathy. Implanted cardiac device in situ. Bony Thorax: Bony thorax appears intact without fractures or deformities. Soft Tissues: Soft tissues overlying the chest wall are unremarkable. IMPRESSION: 1. Mild interval progression of the right lower lung zone opacity, inflammatory infiltrates vs pulmonary edema. Please correlate clinically. 2. Both costophrenic angles are partially obscured, cannot exclude pleural effusion. 3. Cardioemgaly, stable. Electronically signed by Shiraz García 08-22-2024 8:29 PM
--- NOTE | 2024-08-22 21:10 | CT Scan Report ---
EXAM: CT angio chest PE protocol CLINICAL HISTORY: PE, CHF, PNA TECHNIQUE: Contiguous 3.[address] angiographic images of the chest were acquired with the administration of intravenous contrast. Coronal and sagittal reconstructions were obtained. One of these 3D techniques was utilized: Maximum Intensity Pixel (MIP), 3D Reconstructed Images, Volume Rendered Images, Surface Shaded Rendering. One of the following dose reduction techniques were utilized for this exam: Automated exposure control, adjustment of the mA and/or kV according to patient size, and use of iterative reconstruction. 119 mL of Optiray 320 was given as an IV contrast. COMPARISON: CR same date, CTA 03/31/2019 reviewed FINDINGS: Pulmonary Arteries: Non homogenous opacification of the subsegmental branches of pulmonary arteries , due to improper intravenous bolus acquisition timing, leading to simultaneous opacification of pulmonary veins. No evidence of pulmonary embolism in visualised arterial tree. Pulmonary trunk is dilated, measuring 41 mm in maximum caliber. Aorta: Mild aneurysmal dilatation of the ascending aorta, measuring 45 mm in maximum caliber. Rest of thoracic aorta is normal in caliber. Mediastinum: Few subcentimetric non-specific mediastinal nodes. Heart: Moderate cardiomegaly noted with bowing of interventricular septum toward right side, reflux of contrast in IVC, representing right heart strain. Pacemaker leads in situ. No pericardial effusion. Lungs: Minimal bilateral pleural effusion. Interstitial thickening with ground-glass haziness in basal segments with few small areas of patchy consolidation in right basal region. Bones: Degenerative changes in thoracic spine. Soft Tissues: Normal appearance of the visualized soft tissues. No abnormal masses or fluid collections. Upper Abdomen: Unremarkable. IMPRESSION: 1. No evidence of pulmonary embolism in visualised arterial tree. 2. Dilated pulmonary trunk, measuring 41 mm in maximum caliber. Possible portal hypertension 3. Moderate cardiomegaly noted with bowing of interventricular septum toward right side, reflux of contrast in IVC, representing right heart strain. 4. Mild bilateral pleural effusion. 5. Interstitial thickening with ground-glass haziness in basal segments with few small areas of patchy consolidation in right basal region. 6. The findings concur with recent chest radiograph 7. Similar findings were appreciated on prior CTA study. Electronically signed by Shiraz García 08-22-2024 9:09 PM
[2024-08-22] MEDS: FUROSEMIDE 40 MG/4 ML VIAL IV ONE (22:20)
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
[2024-08-22 22:36] LABS: Magnesium 1.5 mg/dl (1.7-2.4)
--- NOTE | 2024-08-22 22:46 | Emergency Department Note ---
Impression & Plan Chronic respiratory failure, HFrEF (heart failure with reduced ejection fraction), Elevated troponin, Chest pain, Pleural effusion ED Provider Note NAME: HARDIK LOVE AGE: 48 SEX: M : 1975 ARRIVES VIA: Walk-In INFORMANT: Patient, ED PROVIDER(S): Harris White MD CHIEF COMPLAINT: Shortness of breath, chest pain HPI: This is a 48-year-old presented for shortness of breath and chest pain. Patient states that he began having chest pains, sharp. They are intermittent. Occasionally worsened by deep inspiration. He reports feels like he has CHF which is here for before. He has no notes currently. He reports no shortness of breath, worse than his baseline. No nausea, vomiting. ROS: See above HPI for pertinent positives & negatives. A total of 10 systems reviewed and were otherwise negative. PAST MEDICAL HISTORY: See Below PAST SURGICAL HISTORY: See Below FAMILY HISTORY: See Below SOCIAL HISTORY: See Below HOME MEDICATIONS: See Below ALLERGIES: See Below VITALS: See Below PHYSICAL EXAMINATION: General: Significant elevated BMI Head: Normocephalic and atraumatic Eyes: Normal inspection, extraocular muscles intact Ear, nose, throat: Normal external exam Neck: Normal range of motion Respiratory: Diminished Cardiovascular: Regular rate/rhythm, no murmur GI: Distended, soft, nontender, no guarding or rebound Extremities: nontender, moves all extremities Neuro: The patient awake and alert, appropriately conversive, no focal deficits, symmetric faces Skin: Warm, dry, and intact MEDICAL DECISION MAKING: This is a 48-year-old male presented with shortness of breath and chest pain. Will do screening ACS workup. Consider PE with chest pain, tachycardia, shortness of breath. - ECG independently interpreted by me with sinus tachycardia with PVC, rate of 121, left axis deviation, , normal QRS, normal QTc, no ST segment elevations consistent with STEMI criteria, lateral T wave versions -Chest x-ray is mild interval progression of the right lower lung zone opacity, cardiomegaly noted - CT imaging ordered to rule out PE with patient's chest pain/arm pain. -CT imaging reveals dilated pulmonary trunk, moderate cardiomegaly with right heart strain, bilateral pleural effusions -Blood work reveals no leukocytosis or anemia. Electrolytes within normal limits. Creatinine and liver enzymes within normal limits. Troponin elevated at 31.9 is rising to 40.6. - With patient's symptoms including chest pain, shortness of breath, CT imaging findings, increasing troponin will admit the patient at this time Differential diagnosis: PE, dissection, ACS, COPD, pneumonia, pleural effusion Independent History obtained from: [facility] interpreted by me: ECG: See above Cardiac Monitoring: An order was placed for continuous cardiac monitoring. The monitor shows a rate of 115 with sinus tachycardia rhythm. Past Med/Surg History Problem List (Updated 08/22/24 @ 23:52 by Harris White MD) Pleural effusion (Acute) Chest pain (Acute) Elevated troponin (Acute) Hypokalemia Acute on chronic systolic CHF (congestive heart failure) (Acute) Acute kidney failure Left knee pain Elevated troponin (Acute) Elevated brain natriuretic peptide (BNP) level (Acute) Hypomagnesemia (Acute) Acute exacerbation of CHF (congestive heart failure) (Acute) Venous stasis dermatitis Non-sustained ventricular tachycardia (Acute) Pulmonary edema (Acute) Lightheadedness (Acute) Dyspnea (Acute) Acute on chronic heart failure with reduced ejection fraction (HFrEF, <= 40%) Type 2 diabetes mellitus with microalbuminuria Periapical abscess Pulmonary edema (Acute) Hypomagnesemia (Acute) Type 2 diabetes mellitus with peripheral neuropathy Diabetic peripheral neuropathy Non-proliferative diabetic retinopathy, both eyes Uncontrolled diabetes mellitus with hyperglycemia Chronic respiratory failure (Acute) Normocytic anemia Poor intravenous access Chronic anticoagulation Diabetes mellitus type II, uncontrolled (Chronic) Urinary bladder incontinence Hx of local infection of skin and subcutaneous tissue Ambulatory dysfunction (Chronic) Recurrent infection of skin Pulmonary nodule V tach (Acute) HFrEF (heart failure with reduced ejection fraction) (Acute) Hemoptysis (Acute) Vitamin D deficiency Medical History Chronic respiratory failure with hypoxia Type 2 diabetes mellitus with obesity Morbid obesity with BMI of 50.0-59.9, adult Hypertension Non-sustained ventricular tachycardia Obstructive sleep apnea NICM (nonischemic cardiomyopathy) Pt admitted for elective ICD. Underwent procedure without any complications monitored over night and discharged home. Combined systolic and diastolic heart failure Nonischemic cardiomyopathy, unclear etiology. Difficult to manage. Integrated into heart failure clinic. Frequent admissions for heart failure exacerbations. Echo (05/31) EF=25-30% with mod to severe global hypokinesis, basal kelsi-septal akinetic wall, LVH, RVSP elevated at 30-40mmHg, and mod dilated ascending aorta. Managed medically with ASA + BB + ARB/Neprilysin inhibitor (Entresto) + high dose furosemide (160mg BID) + metolazone (3x weekly). Considering ICD given EF. COPD (chronic obstructive pulmonary disease) Hypomagnesemia Medical non-compliance Intellectual disability Chronic dental pain Small bowel obstruction Housing instability, currently housed, at risk for homelessness Hearing loss of both ears Nonproliferative retinopathy due to secondary diabetes Dilatation of thoracic aorta Iliac aneurysm Vitamin D insufficiency Previously deficient, taking Vit D supplementation Umbilical hernia Lung nodule Fatty liver Surgical History AICD (automatic cardioverter/defibrillator) present H/O oral surgery History of carpal tunnel surgery S/P tonsillectomy History of cholecystectomy Family History Father , age 57 of an HI. Heart disease Myocardial infarction Mother , age 67 of a ruptured neck vessel Sudden Other Depression Lung disease No pertinent family history Denies family history of Ovarian cancer Prostate cancer Breast cancer Colorectal cancer Social History Smoking Status: Former smoker Age Started Using Tobacco: 14; Age Quit Using Tobacco: 18; packs per day: 1; Second Hand Exposure: No; Hx Alcohol Use: No Hx Substance Use: No Preferred Language: Indonesian Communication Ability: Effective Visual Impairment: No Limitations Hearing Ability: Normal Alternative Dispute Resolution Mediator Required: No Beliefs That Will Affect Care: None marital status: Current Living Situation: Family Current Living Situation Comment: Lives at home with current occupational status: unemployed How many Children do You have: 0 Feels Safe at Home: Yes Childhood Exposure to Second-Hand Smoke: Yes Dental Care, Regularly: Yes Physical Activity Frequency: Does not Exercise Seatbelt Use: never Sunscreen Use: No Assistive Devices: CPAP, Oxygen - Continuous, Scooter/Electric Scooter and Walker Allergies Allergies Allergy/AdvReac Type Severity Reaction Status Date / Time albuterol Allergy Severe proair Verified 06/26/24 17:02 "trouble taking breaths" ceftriaxone Allergy Severe SHORTNESS Verified 06/26/24 17:02 OF BREATH lidocaine Allergy Severe SHORTNESS Verified 06/26/24 17:02 OF BREATH, diaphoretic, hives mushroom Allergy Severe Anaphylaxis Verified 06/26/24 17:02 procaine Allergy Severe SHORTNESS Verified 06/26/24 17:02 OF BREATH, diaphoretic, hives amoxicillin Allergy Intermediate HIVES/FACIAL Verified 06/26/24 17:02 SWELLING clavulanic acid Allergy Intermediate HIVES/FACIAL Verified 06/26/24 17:02 SWELLING lisinopril Allergy Intermediate HIVES Verified 06/26/24 17:02 shellfish derived Allergy Unknown Unknown Verified 06/26/24 17:02 acetaminophen AdvReac Mild NAUSEA Verified 06/26/24 17:02 Fish Containing Products AdvReac Unknown Unknown Verified 06/26/24 17:02 Home Meds Home Medications Medication Instructions Recorded Confirmed nitroglycerin 0.4 mg sublingual 0.4 mg sublingual UD PRN Chest Pain 04/24/19 08/22/24 tablet (Nitrostat) aspirin 81 mg tablet,delayed 81 mg PO QAM 06/16/21 08/22/24 release (Neisha Low Dose Aspirin) albuterol sulfate 2.5 mg/3 mL 2.5 mg inhalation Q6H PRN 12/02/21 08/22/24 (0.083 %) solution for nebulization Shortness Of Breath Or Wheezing budesonide 0.25 mg/2 mL suspension 0.25 mg inhalation DAILY PRN 09/15/22 08/22/24 for nebulization Shortness Of Breath albuterol sulfate 90 mcg/actuation 1 inh inhalation QID PRN Shortness 10/12/23 08/22/24 aerosol inhaler Of Breath Or Wheezing lidocaine 5 % topical patch 1 patch topical DAILY PRN Pain 11/03/23 08/22/24 insulin glargine 100 unit/mL (3 35 unit subcut BID 04/28/24 08/22/24 mL) subcutaneous pen magnesium oxide 400 mg (241.3 mg 400 mg PO QAM 08/22/24 08/22/24 magnesium) tablet Previous Rx's Medication Instructions Recorded blood-glucose meter (Zumigouch #1 ea 10/12/22 Verio Flex Meter) lancets 30 gauge (OneTouch Delica #100 ea 10/12/22 Plus Lancet) Symbicort 160 mcg-4.5 2 inh inhalation BID #3 Inhalers 11/14/22 mcg/actuation HFA aerosol inhaler (budesonide-formoterol) blood sugar diagnostic (OneTouch #100 ea 01/17/23 Verio test strips) pen needle, diabetic 31 gauge x #100 ea 02/16/23 5/16" (Comfort EZ Pen [place]) trolamine salicylate 10 % topical 1 applic EXT BID PRN left sided 11/06/23 cream (Myoflex) neck pain #35.4 grams blood-glucose sensor (FreeStyle #2 ea 12/13/23 Karla 3 Plus Sensor device) blood-glucose,[employer] [place],cont #1 ea 01/14/24 (FreeStyle Karla 3 [place]) blood-glucose,[place],cont #1 ea 01/14/24 (FreeStyle Karla 3 [place]) Farxiga 10 mg tablet 10 mg PO DAILY #90 tabs 04/28/24 (dapagliflozin propanediol) isosorbide mononitrate 60 mg 60 mg PO DAILY #90 tabs 04/28/24 tablet,extended release 24 hr metoprolol succinate 100 mg 100 mg PO BID #180 tabs 04/28/24 tablet,extended release 24 hr sacubitril 97 mg-valsartan 103 mg 1 tab PO BID #180 tabs 04/28/24 tablet (Entresto) triamcinolone acetonide 0.025 % 1 applic topical TID PRN rash #454 04/28/24 topical cream grams nystatin 100,000 unit/gram topical 1 applic topical BID PRN Skin 05/09/24 powder Irritation #60 grams tirzepatide 7.5 mg/0.5 mL 7.5 mg (0.5 mL) subcut Q7D 30 days 05/09/24 subcutaneous pen injector #2 mL Oxygen Home #1 ea 05/29/24 spironolactone 50 mg tablet 50 mg PO BID #60 tabs 06/24/24 furosemide 80 mg tablet 80 mg PO BID #60 tabs 06/28/24 metoprolol succinate 25 mg 25 mg PO BID #60 tabs 07/15/24 tablet,extended release 24 hr Portable Oxygen #1 ea 08/20/24 Results & Data (ED) Vital Signs Vital Signs - 24 hr 08/22/24 18:20 08/22/24 18:47 08/22/24 18:48 Temperature Source Temporal Artery Scan Pulse Rate 115 H 127 H Pulse Rate [Apical] Respiratory Rate 24 Respiratory Effort / Characteristics Non-Labored Spontaneous Respiratory Depth Normal Blood Pressure 159/95 H Blood Pressure [Right Arm] Blood Pressure Mean 116 Blood Pressure Mean [Right Arm] Pulse Oximetry 94 92 Oxygen Delivery Method Nasal Cannula Room Air Oxygen Flow Rate 4 Sepsis Recent Fever Within 48 Hours No Sepsis New/Unexplained Change in Mental Status N/A Sepsis Action Taken by Nursing No Action Required 08/22/24 18:48 08/22/24 18:50 08/22/24 20:00 Temperature Source Pulse Rate 125 H 123 H Pulse Rate [Apical] 116 H Respiratory Rate 24 27 H 20 Respiratory Effort / Characteristics Respiratory Depth Blood Pressure 163/109 H Blood Pressure [Right Arm] 165/132 H Blood Pressure Mean 136 Blood Pressure Mean [Right Arm] 143 Pulse Oximetry 92 94 95 Oxygen Delivery Method Room Air Room Air Oxygen Flow Rate Sepsis Recent Fever Within 48 Hours Sepsis New/Unexplained Change in Mental Status Sepsis Action Taken by Nursing 08/22/24 20:40 08/22/24 21:01 08/22/24 22:01 Temperature Source Pulse Rate 120 H 116 H 116 H Pulse Rate [Apical] Respiratory Rate 20 28 H 22 Respiratory Effort / Characteristics Respiratory Depth Blood Pressure 158/100 H 183/101 H 133/99 Blood Pressure [Right Arm] Blood Pressure Mean 106 115 104 Blood Pressure Mean [Right Arm] Pulse Oximetry 96 95 96 Oxygen Delivery Method Oxygen Flow Rate Sepsis Recent Fever Within 48 Hours Sepsis New/Unexplained Change in Mental Status Sepsis Action Taken by Nursing 08/22/24 22:32 08/22/24 23:11 Temperature Source Pulse Rate 134 H 115 H Pulse Rate [Apical] Respiratory Rate 24 Respiratory Effort / Characteristics Respiratory Depth Blood Pressure 147/109 H Blood Pressure [Right Arm] Blood Pressure Mean 114 Blood Pressure Mean [Right Arm] Pulse Oximetry 95 Oxygen Delivery Method Nasal Cannula Oxygen Flow Rate 4 Sepsis Recent Fever Within 48 Hours Sepsis New/Unexplained Change in Mental Status Sepsis Action Taken by Nursing Laboratory Data 08/22/24 18:44 08/22/24 18:44 Lab Results 08/22/24 08/22/24 Range/Units 18:44 20:40 WBC 6.77 (4.8-10.8) K/ul RBC 5.54 (4.70-6.10) M/uL Hgb 16.1 (14.0-18.0) g/dl Hct 47.0 (42.0-52.0) % MCV 84.8 (80.0-100.0) fL MCH 29.1 (25.0-34.0) pg MCHC 34.3 (32.0-36.0) g/dL RDW Std Deviation 44.6 (36.4-46.3) fL RDW Coeff of Zoltan 14.5 (11.5-14.5) % Plt Count 113 L (130-400) K/uL MPV 10.6 (9.4-12.4) fL Immature Gran % (Auto) 0.4 % Neut % (Auto) 71.2 % Lymph % (Auto) 15.1 % Clay % (Auto) 12.0 % Eos % (Auto) 1.0 % Baso % (Auto) 0.3 % Neut # (Auto) 4.82 (1.40-6.50) K/uL Lymph # (Auto) 1.02 L (1.20-3.40) K/uL Clay # (Auto) 0.81 H (0.11-0.59) K/uL Eos # (Auto) 0.07 (0.00-0.50) K/uL Baso # (Auto) 0.02 (0.00-0.20) K/uL Immature Gran # (Auto) 0.03 (0.01-0.20) K/uL Sodium 135 L (136-145) mmol/L Potassium 3.7 (3.5-5.1) mmol/L Chloride 105 (98-107) mmol/L Carbon Dioxide 21 (21-32) mmol/L Anion Gap 9 (3-11) BUN 14 (6-23) mg/dl Creatinine 0.92 (0.6-1.4) mg/dl Est Cr Clr Drug Dosing 148.0 ml/min eGFR 103.25 BUN/Creatinine Ratio 15.2 (10-20) Glucose 204 H (70-99(Fasting)) mg/dl Calcium 8.6 (8.6-10.3) mg/dl Magnesium 1.5 L (1.7-2.4) mg/dl Total Bilirubin 1.0 (0.2-1.0) mg/dl AST 16 (13-39) U/L ALT 11 (7-52) U/L Alkaline Phosphatase 98 (34-104) U/L Troponin I High Sens 31.9 H 40.6 H (0-20) pg/ml Total Protein 7.7 (6.0-8.3) gm/dl Albumin 3.7 (3.4-5.0) gm/dl Globulin 4.0 (2.5-4.0) gm/dl Albumin/Globulin Ratio 0.9 (0.9-2) Lipase 18 (11-82) U/L Administered Medications Magnesium Sulfate/Dextrose (Magnesium Sulfate / D5w) 1 gm in 100 mls @ 100 mls/hr IV Q1H SUKHWINDER Stop: 08/23/24 00:59 Last Admin: 08/22/24 23:05 Dose: 100 mls/hr Documented By: NADIA Discontinued Medications Furosemide (Furosemide 40 Mg/4 Ml Vial) 80 mg IV ONE ONE Stop: 08/22/24 22:15 Last Admin: 08/22/24 22:20 Dose: 80 mg Documented By: NADIA Insulin Glargine (Lantus Per Unit Charge) 10 units SQ NOW STA Stop: 08/22/24 22:18 Last Admin: 08/22/24 23:03 Dose: 10 units Documented By: NADIA Co-signed By: LANEY Ioversol (Optiray 320 125ml) 119 ml IV ONCE ONE Stop: 08/22/24 19:28 Last Admin: 08/22/24 19:28 Dose: 119 ml Documented By: BENI Metoprolol Succinate (Metoprolol Succ 50mg Ext Rel Tab) 100 mg PO NOW STA Stop: 08/22/24 22:18 Last Admin: 08/22/24 23:04 Dose: 100 mg Documented By: NADIA Metoprolol Succinate (Metoprolol Succ 25mg Ext Rel Tab) 25 mg PO NOW STA Stop: 08/22/24 22:18 Last Admin: 08/22/24 23:04 Dose: 25 mg Documented By: NADIA Potassium Chloride (Potassium Chloride Crtab 20 Meq Tabcr) 40 meq PO NOW STA Stop: 08/22/24 22:49 Last Admin: 08/22/24 23:04 Dose: 40 meq Documented By: NADIA Spironolactone (Spironolactone 25 Mg Tab) 50 mg PO NOW STA Stop: 08/22/24 22:21 Last Admin: 08/22/24 23:04 Dose: 50 mg Documented By: NADIA Imaging Data Radiologist's Impression: Chest X-Ray 08/22/24 18:24 EXAM: XR chest 1V portable CLINICAL HISTORY: Chest pain, nonspecific TECHNIQUE: An X-ray image of the chest is obtained in AP projection. COMPARISON: 06/28/2024 CR FINDINGS: Pulmonary Parenchyma: Inhomogenous likely airspace opacities in the right lower lung zone, mild increase when compared to prior. No evidence of consolidation, collapse, or focal opacities. No pulmonary nodules are identified. Both costophrenic angles are partially obscured. Heart and Mediastinum: Cardiomegaly. No mediastinal widening or masses. No hilar or mediastinal lymphadenopathy. Implanted cardiac device in situ. Bony Thorax: Bony thorax appears intact without fractures or deformities. Soft Tissues: Soft tissues overlying the chest wall are unremarkable. IMPRESSION: 1. Mild interval progression of the right lower lung zone opacity, inflammatory infiltrates vs pulmonary edema. Please correlate clinically. 2. Both costophrenic angles are partially obscured, cannot exclude pleural effusion. 3. Cardioemgaly, stable. Electronically signed by Shiraz García 08-22-2024 8:29 PM Chest CTA 08/22/24 18:31 EXAM: CT angio chest PE protocol CLINICAL HISTORY: PE, CHF, PNA TECHNIQUE: Contiguous 3.[address] angiographic images of the chest were acquired with the administration of intravenous contrast. Coronal and sagittal reconstructions were obtained. One of these 3D techniques was utilized: Maximum Intensity Pixel (MIP), 3D Reconstructed Images, Volume Rendered Images, Surface Shaded Rendering. One of the following dose reduction techniques were utilized for this exam: Automated exposure control, adjustment of the mA and/or kV according to patient size, and use of iterative reconstruction. 119 mL of Optiray 320 was given as an IV contrast. COMPARISON: CR same date, CTA 03/31/2019 reviewed FINDINGS: Pulmonary Arteries: Non homogenous opacification of the subsegmental branches of pulmonary arteries , due to improper intravenous bolus acquisition timing, leading to simultaneous opacification of pulmonary veins. No evidence of pulmonary embolism in visualised arterial tree. Pulmonary trunk is dilated, measuring 41 mm in maximum caliber. Aorta: Mild aneurysmal dilatation of the ascending aorta, measuring 45 mm in maximum caliber. Rest of thoracic aorta is normal in caliber. Mediastinum: Few subcentimetric non-specific mediastinal nodes. Heart: Moderate cardiomegaly noted with bowing of interventricular septum toward right side, reflux of contrast in IVC, representing right heart strain. Pacemaker leads in situ. No pericardial effusion. Lungs: Minimal bilateral pleural effusion. Interstitial thickening with ground-glass haziness in basal segments with few small areas of patchy consolidation in right basal region. Bones: Degenerative changes in thoracic spine. Soft Tissues: Normal appearance of the visualized soft tissues. No abnormal masses or fluid collections. Upper Abdomen: Unremarkable. IMPRESSION: 1. No evidence of pulmonary embolism in visualised arterial tree. 2. Dilated pulmonary trunk, measuring 41 mm in maximum caliber. Possible portal hypertension 3. Moderate cardiomegaly noted with bowing of interventricular septum toward right side, reflux of contrast in IVC, representing right heart strain. 4. Mild bilateral pleural effusion. 5. Interstitial thickening with ground-glass haziness in basal segments with few small areas of patchy consolidation in right basal region. 6. The findings concur with recent chest radiograph 7. Similar findings were appreciated on prior CTA study. Electronically signed by Shiraz García 08-22-2024 9:09 PM Discharge Plan Visit Data Chief Complaint: Chest Pain Stated Complaint: CHEST PAINS, SWELLED LEGS ED Provider: Harris White Discharge Problem: Chronic respiratory failure, HFrEF (heart failure with reduced ejection fraction), Elevated troponin, Chest pain, Pleural effusion Patient Disposition: Admitted As Inpatient Condition: Fair Discharge Instructions Interventions: ED Discharge Assessment Last Done: 08/22/24 23:40 Forms Stand Alone Forms: [facility] [employer] Prescriptions Prescriptions: No Action (DME) FreeStyle Karla 3 [place] Misc See Rx Instructions .Route Qty: 1 1RF Rx Instructions: moniotr blood sugar (DME) FreeStyle Karla 3 [place] Misc See Rx Instructions .ROUTE .MEDSUPPLY Qty: 1 0RF Rx Instructions: use with karla 3 + sensor tirzepatide 7.5 mg/0.5 mL pen injector 7.5 mg subcut Q7D 30 Days Qty: 2 3RF Rx Instructions: [place] spironolactone 50 mg tablet 50 mg PO BID Qty: 60 1RF metoprolol succinate 25 mg tablet extended release 24 hr 25 mg PO BID Qty: 60 0RF Rx Instructions: TOTAL DOSE 125 MG--TAKES WITH 100 MG TAB. (DME) Portable Oxygen Misc See Rx Instructions .Route Qty: 1 0RF Rx Instructions: Portable oxygen concentrator (DME) pen needle, diabetic [Comfort EZ Pen [place]] 31 gauge x 5/16" needle See Rx Instructions .Route Qty: 100 3RF Rx Instructions: use when administering insuling daily budesonide 0.25 mg/2 mL suspension for nebulization 0.25 mg inhalation DAILY PRN (Reason: Shortness Of Breath) budesonide-formoterol [Symbicort] 160-4.5 mcg/actuation HFA aerosol inhaler 2 inh inhalation BID Qty: 3 3RF Rx Instructions: 2 puffs twice per day. Rinse mouth after each use (DME) OneTouch Verio test strips Strip See Rx Instructions miscellaneous .MEDSUPPLY Qty: 100 5RF Rx Instructions: check 3x a day (DME) lancets [OneTouch Delica Plus Lancet] 30 gauge misc See Rx Instructions .ROUTE .MEDSUPPLY Qty: 100 5RF Rx Instructions: use new lancet 3x a day (DME) blood-glucose meter [OneTouch Verio Flex meter] Misc See Rx Instructions .ROUTE .MEDSUPPLY Qty: 1 0RF Rx Instructions: As directed (DME) FreeStyle Karla 3 Plus Sensor Device See Rx Instructions .ROUTE .MEDSUPPLY Qty: 2 11RF Rx Instructions: change sensor every 15 days (DME) Oxygen Home Liters Per Minute See Rx Instructions .MEDSUPPLY Qty: 1 0RF Rx Instructions: Home Oxygen concentrator with portability, test for conserving device. 2-4LMP via n/c at rest/sleep and 2-4 LPM via n/c with exertion; VÍCTOR 99. nystatin 100,000 unit/gram powder 1 applic topical BID PRN (Reason: Skin Irritation) Qty: 60 0RF insulin glargine 100 unit/mL (3 mL) insulin pen 35 unit subcut BID triamcinolone acetonide 0.025 % cream 1 applic topical TID PRN (Reason: rash) Qty: 454 0RF isosorbide mononitrate 60 mg tablet extended release 24 hr 60 mg PO DAILY Qty: 90 1RF metoprolol succinate 100 mg tablet extended release 24 hr 100 mg PO BID Qty: 180 1RF Rx Instructions: TOTAL DOSE 125 MG--TAKES WITH 25 MG TAB. dapagliflozin propanediol [Farxiga] 10 mg tablet 10 mg PO DAILY Qty: 90 1RF Entresto 97-103 mg tablet 1 tab PO BID Qty: 180 1RF nitroglycerin [Nitrostat] 0.4 mg tablet, sublingual 0.4 mg sublingual UD PRN (Reason: Chest Pain) aspirin [Neisha Low Dose Aspirin] 81 mg tablet,delayed release (DR/EC) 81 mg PO QAM albuterol sulfate 2.5 mg /3 mL (0.083 %) solution for nebulization 2.5 mg inhalation Q6H PRN (Reason: Shortness Of Breath Or Wheezing) Rx Instructions: Use every 6 hours as needed with nebulizer albuterol sulfate 90 mcg/actuation HFA aerosol inhaler 1 inh inhalation QID PRN (Reason: Shortness Of Breath Or Wheezing) magnesium oxide 400 mg (241.3 mg magnesium) tablet 400 mg PO QAM lidocaine 5 % adhesive patch,medicated 1 patch topical DAILY PRN (Reason: Pain) trolamine salicylate [Myoflex] 10 % Cream 1 applic EXT BID PRN (Reason: left sided neck pain) Qty: 35.4 0RF furosemide 80 mg tablet 80 mg PO BID Qty: 60 0RF Referrals Referrals: Gosia Martinez MD [Primary Care Provider] -
[2024-08-22] MEDS: LANTUS PER UNIT CHARGE SQ STA (23:03)
[2024-08-22] MEDS: SPIRONOLACTONE 25 MG TAB PO STA (23:04)
[2024-08-22] MEDS: POTASSIUM CHLORIDE CRTAB 20 MEQ TABCR PO STA (23:04)
[2024-08-22] MEDS: METOPROLOL SUCC 50MG EXT REL TAB PO STA (23:04)
[2024-08-22] MEDS: METOPROLOL SUCC 25MG EXT REL TAB PO STA (23:04)
[2024-08-22] MEDS: MAGNESIUM SULFATE / D5W 1 GM/100 ML BAG IV SCH (23:05)
[2024-08-23] MEDS ORDERED: ACETAMINOPHEN 325 MG TAB PO PRN (00:09)
[2024-08-23] MEDS ORDERED: GLUCOSE 10 TAB/TUBE PO PRN (00:09)
[2024-08-23] MEDS ORDERED: ALBUTEROL 0.083% NEBU SOLN 3 ML VIAL INH PRN (00:09)
[2024-08-23] MEDS ORDERED: GLUCAGON FOR INJ 1 MG VIAL SQ PRN (00:09)
[2024-08-23] MEDS ORDERED: CARBOHYDRATES FOR HYPOGLYCEMIA PO PRN (00:09)
[2024-08-23] MEDS ORDERED: ONDANSETRON INJ 2 MG/ML 2 ML VIAL IV PRN (00:09)
[2024-08-23] MEDS ORDERED: LIDOCAINE 5% 1 PATCH TD PRN (00:09)
[2024-08-23] MEDS ORDERED: GLUCOSE 40% GEL 15 GM TUBE PO PRN (00:09)
[2024-08-23] MEDS ORDERED: DEXTROSE 50% 50 ML SYRINGE IV PRN (00:09)
[2024-08-23] MEDS ORDERED: BUDESONIDE 0.25 MG/2 ML VIAL (PULMICORT) INH PRN (00:09)
[2024-08-23] MEDS ORDERED: ALBUTEROL HFA 8 GM INHALER INH PRN (00:09)
[2024-08-23] MEDS: INSULIN ASPART PER UNIT CHARGE SC ONE (01:23)
[2024-08-23 07:58] LABS: Hematocrit (blood only) 46.4 % (42.0-52.0); Hemoglobin 16.5 g/dl (14.0-18.0); Mean Corpuscular Hemoglobin 30.3 pg (25.0-34.0); Mean Corpuscular Volume 85.3 fL (80.0-100.0); Platelet Count 113 K/uL (130-400); RDW Standard Deviation 44.1 fL (36.4-46.3); Red Blood Count 5.44 M/uL (4.70-6.10); White Blood Count 7.53 K/ul (4.8-10.8)
[2024-08-23 08:22] LABS: Anion Gap 6.0 (3-11); Blood Urea Nitrogen 12.0 mg/dl (6-23); Calcium 8.0 mg/dl (8.6-10.3); Carbon Dioxide 27.0 mmol/L (21-32); Chloride 101.0 mmol/L (98-107); Creatinine Clr Calc Pharmacy 149.7 ml/min; Glucose 170.0 mg/dl (70-99(Fasting)); Magnesium 1.7 mg/dl (1.7-2.4); Potassium 3.9 mmol/L (3.5-5.1); Sodium 134.0 mmol/L (136-145)
[2024-08-23] MEDS: LANTUS PER UNIT CHARGE SQ SCH (09:20)
[2024-08-23] MEDS: INSULIN ASPART PER UNIT CHARGE SC SCH (09:21)
[2024-08-23] MEDS: METOPROLOL SUCC 25MG EXT REL TAB PO SCH (09:22)
[2024-08-23] MEDS: METOPROLOL SUCC 50MG EXT REL TAB PO SCH (09:22)
[2024-08-23] MEDS: VALSARTAN/SACUBITRIL 103/97MG TAB PO SCH (09:23)
[2024-08-23] MEDS: ASPIRIN 81 MG ECTAB PO SCH (09:23)
[2024-08-23] MEDS: ISOSORBIDE MONO EXTENDED REL 60 MG TABCR PO SCH (09:23)
[2024-08-23] MEDS: FLUTICASONE/VILANTEROL 100/25MCG 14 PUFFS/INHALER INH SCH (09:24)
[2024-08-23] MEDS: SPIRONOLACTONE 25 MG TAB PO SCH (09:24)
[2024-08-23] MEDS: FUROSEMIDE 40 MG/4 ML VIAL IV SCH (09:24)
[2024-08-23] MEDS: IBUPROFEN 200 MG TAB PO PRN (10:28)
--- NOTE | 2024-08-23 10:29 | Hospitalist Progress Note ---
Date of Service August 23, 2024 Assessment & Plan (1) Acute on chronic systolic CHF (congestive heart failure): Plan: Continue parenteral Lasix diuresis. Monitor intake and output. Serial chest x- ray. Cardiac echo ordered and pending (2) Elevated troponin: Plan: Mild. No chest pain. No acute EKG changes. No evidence of acute coronary syndrome (3) Hypomagnesemia: Plan: Parenteral and oral replacement. Serial labs (4) Type 2 diabetes mellitus with microalbuminuria: Plan: ADA diet. Sliding scale coverage. Basal insulin therapy (5) Chronic respiratory failure with hypoxia: Plan: Supplemental oxygen per nasal cannula to maintain saturation greater than 90%. Treat underlying CHF Plan Hopeful discharge to home sometime within the next 2 to 3 days Admission and Anticipated Discharge Date Admission Date: August 22, 2024 Subjective Alert and oriented. No acute distress. Brisk diuresis with parenteral Lasix. He remains on 6 L of oxygen however. Will repeat cardiac echo since this has not been done within the past year. Chest x-ray again tomorrow, August 24. Continue metoprolol, spironolactone, Imdur, Entresto. Chest CTA on admission negative for PE. Review of Systems 2 Review of Systems: Constitutionalno fever or chills ENTno blurred vision, no double vision, no epistaxis, no sore throat Respiratoryno cough, no wheezing, no shortness of breath at rest. He does have dyspnea on exertion Cardiacno palpitations, no chest pain, no syncope Katlyn nausea, vomiting, diarrhea, melena, hematochezia GUno urinary retention, no urinary incontinence, no dysuria, no hematuria Musculoskeletalno joint pain, no muscle tenderness Skinno bruising, no rashes, no pruritus Neurono isolated weakness, no paresthesia, no weakness Psychno depression, no anxiety Physical Exam 2 Physical Exam: General-alert and oriented x3, no fever, no chills. Morbidly obese HEENT-head atraumatic and normocephalic, pupils equal and reactive to light, extraocular muscles intact Neck-no lymphadenopathy or thyromegaly, trachea midline Chest-diminished breath sounds bilaterally with bibasilar inspiratory rales. No rhonchi. No wheezing Cardiac-regular rate and rhythm, normal S1 and S2 Abdomen-normal bowel sounds, no hepatosplenomegaly Xytdkzhvzdw-6-8+ pitting edema bilateral lower extremities below the knees Neuro-cranial nerves II through XII intact, motor and sensory function within normal limits, strength symmetrical, no focal deficits Psych-normal affect, normal mood Results & Data Results & Data Vital Signs (Past 12 Hours) Vital Signs Temp Pulse Pulse Pulse Resp BP BP 08/23/24 09:51 08/23/24 07:53 36.5 C 92 H 126/81 08/23/24 05:35 87 08/23/24 03:43 37.4 C 96 H 20 127/85 08/23/24 00:35 08/23/24 00:35 36.9 C 105 H 20 143/76 H 08/22/24 23:55 109 H 08/22/24 23:11 115 H 24 147/109 H 08/22/24 22:32 134 H Pulse Ox O2 Del Method O2 Flow Rate 08/23/24 09:51 Nasal Cannula 6 08/23/24 07:53 96 Nasal Cannula 5 08/23/24 05:35 08/23/24 03:43 96 Nasal Cannula 6 08/23/24 00:35 Nasal Cannula 6 08/23/24 00:35 Nasal Cannula 6 08/22/24 23:55 08/22/24 23:11 95 Nasal Cannula 4 08/22/24 22:32 Laboratory Results 08/23/24 07:37 08/23/24 07:37 PG Care Time/CCT Total # of Minutes Spent Total Time Spent with Patient: Total time spent is greater than 50% in coordination of care (as documented) at patient's floor/unit and/or counseling patient: Coding Level of Care Code 22855 SUB INP/OBS CARE 3/50MIN Diagnoses Acute on chronic systolic CHF (congestive heart failure) I50.23 Elevated troponin R79.89 Hypomagnesemia E83.42 Type 2 diabetes mellitus with microalbuminuria E11.29; R80.9 Chronic respiratory failure with hypoxia J96.11
[2024-08-23] MEDS: REMOVE LIDODERM PATCH SCH (19:53)
[2024-08-24 07:20] LABS: Anion Gap 7.0 (3-11); Blood Urea Nitrogen 21.0 mg/dl (6-23); Calcium 8.4 mg/dl (8.6-10.3); Carbon Dioxide 29.0 mmol/L (21-32); Chloride 99.0 mmol/L (98-107); Creatinine Clr Calc Pharmacy 139.6 ml/min; Glucose 173.0 mg/dl (70-99(Fasting)); Potassium 3.7 mmol/L (3.5-5.1); Sodium 135.0 mmol/L (136-145)
--- NOTE | 2024-08-24 08:40 | XRay Report ---
EXAM: XR chest 1V portable CLINICAL HISTORY: Congestive heart failure. TECHNIQUE: An X-ray image of the chest is obtained in AP projection. COMPARISON: 08/22/2024. FINDINGS: Pulmonary Parenchyma: Nearly stable right mid to lower lung opacities. Mild blunting of bilateral CP angles. Stable cardiomegaly. Heart and Mediastinum: Heart size and shape are normal. No mediastinal widening or masses. No hilar or mediastinal lymphadenopathy. Bony Thorax: Bony thorax appears intact without fractures or deformities. Soft Tissues: Soft tissues overlying the chest wall are unremarkable. IMPRESSION: 1. Nearly stable right mid to lower lung opacities, which could represent pulmonary edema, with other possibilities of an infective process. 2. Mild blunting of bilateral CP angles, found to be minimal pleural effusions on CT scan, remain stable. 3. Stable cardiomegaly. Electronically signed by Shiraz García 08-24-2024 08:39 AM
[2024-08-24] MEDS: POTASSIUM CHLORIDE CRTAB 20 MEQ TABCR PO SCH (10:30)
--- NOTE | 2024-08-24 13:05 | Hospitalist Progress Note ---
Date of Service August 24, 2024 Assessment & Plan (1) Acute on chronic systolic CHF (congestive heart failure): Plan: Continue parenteral Lasix diuresis. Monitor intake and output. Serial chest x- ray. Cardiac echo reveals left ventricular enlargement with ejection fraction in the 15 to 20% range with global hypokinesis. Similar findings to previous studies. (2) Elevated troponin: Plan: Mild. No chest pain. No acute EKG changes. No evidence of acute coronary syndrome (3) Hypomagnesemia: Plan: Corrected with parenteral and oral replacement. Serial labs (4) Type 2 diabetes mellitus with microalbuminuria: Plan: ADA diet. Sliding scale coverage. Basal insulin therapy (5) Chronic respiratory failure with hypoxia: Plan: Supplemental oxygen per nasal cannula to maintain saturation greater than 90%. Treat underlying CHF Plan Hopeful discharge to home tomorrow, August 25 Admission and Anticipated Discharge Date Admission Date: August 24, 2024 Subjective Alert and oriented. No complaints. He is diuresing briskly with parenteral Lasix therapy. Chest x-ray done today, August 24, looks about the same. Will repeat chest x-ray again tomorrow, August 25. Potassium has dropped to 3.7 with diuresis. Will start oral potassium replacement to prevent hypokalemia. Hopefully home tomorrow, August 25. Review of Systems 2 Review of Systems: Constitutionalno fever or chills ENTno blurred vision, no double vision, no epistaxis, no sore throat Respiratoryno cough, no wheezing, no shortness of breath at rest. He does have dyspnea on exertion Cardiacno palpitations, no chest pain, no syncope Katlyn nausea, vomiting, diarrhea, melena, hematochezia GUno urinary retention, no urinary incontinence, no dysuria, no hematuria Musculoskeletalno joint pain, no muscle tenderness Skinno bruising, no rashes, no pruritus Neurono isolated weakness, no paresthesia, no weakness Psychno depression, no anxiety Physical Exam 2 Physical Exam: General-alert and oriented x3, no fever, no chills. Morbidly obese HEENT-head atraumatic and normocephalic, pupils equal and reactive to light, extraocular muscles intact Neck-no lymphadenopathy or thyromegaly, trachea midline Chest-diminished breath sounds bilaterally with bibasilar inspiratory rales. No rhonchi. No wheezing Cardiac-regular rate and rhythm, normal S1 and S2 Abdomen-normal bowel sounds, no hepatosplenomegaly Cidkqbblatn-6-3+ pitting edema bilateral lower extremities below the knees Neuro-cranial nerves II through XII intact, motor and sensory function within normal limits, strength symmetrical, no focal deficits Psych-normal affect, normal mood Results & Data Results & Data Vital Signs (Past 12 Hours) Vital Signs Temp Pulse Pulse Resp BP Pulse Ox O2 Del Method 08/24/24 11:44 Nasal Cannula 08/24/24 11:26 36.5 C 71 20 127/62 97 Nasal Cannula 08/24/24 07:45 36.3 C L 66 16 118/75 95 Nasal Cannula 08/24/24 05:46 75 08/24/24 03:08 36.5 C 71 18 118/80 94 Nasal Cannula O2 Flow Rate 08/24/24 11:44 6 08/24/24 11:26 5 08/24/24 07:45 5 08/24/24 05:46 08/24/24 03:08 6 Laboratory Results 08/23/24 07:37 08/24/24 06:26 PG Care Time/CCT Total # of Minutes Spent Total Time Spent with Patient: Total time spent is greater than 50% in coordination of care (as documented) at patient's floor/unit and/or counseling patient: Coding Level of Care Code 58863 SUB INP/OBS CARE 3/50MIN Diagnoses Acute on chronic systolic CHF (congestive heart failure) I50.23 Elevated troponin R79.89 Hypomagnesemia E83.42 Type 2 diabetes mellitus with microalbuminuria E11.29; R80.9 Chronic respiratory failure with hypoxia J96.11
[2024-08-24] MEDS: KETOROLAC TROMETHAMINE 15 MG/ML VIAL IV ONE (17:50)
[2024-08-24] MEDS: KETOROLAC TROMETHAMINE 15 MG/ML VIAL IV PRN (23:38)
[2024-08-25 03:15] VITALS: TEMP 97.7
--- NOTE | 2024-08-25 07:49 | XRay Report ---
EXAM: XR chest 1V portable CLINICAL HISTORY: CHF TECHNIQUE: X-ray image of the chest obtained in 1 frontal projection. COMPARISON: Prior X-ray dated 08/24/2024 for comparison. FINDINGS: Pulmonary Parenchyma: Mild interval improvement in air space opacities in right mid zone and unchanged in lower zone. Unchanged blunting of bilateral CP angles likely pleural effusion. Heart and Mediastinum: Cardiomegaly. Left cardiac pacemaker in situ. No mediastinal widening or masses. No hilar or mediastinal lymphadenopathy. Bony Thorax: Bony thorax appears intact without fractures or deformities. Soft Tissues: Soft tissues overlying the chest wall are unremarkable. IMPRESSION: 1. Mild interval improvement in air space opacities in right mid zone and unchanged in lower zone. 2. Unchanged blunting of bilateral CP angles likely small pleural effusions. 3. Cardiomegaly. Left cardiac pacemaker in situ. Electronically signed by Shiraz García 08-25-2024 07:49 AM
[2024-08-25 08:23] VITALS: BP 114/83; RESP 16; O2SAT 95
[2024-08-25 08:37] LABS: Anion Gap 6.0 (3-11); Blood Urea Nitrogen 32.0 mg/dl (6-23); Calcium 8.7 mg/dl (8.6-10.3); Carbon Dioxide 31.0 mmol/L (21-32); Chloride 100.0 mmol/L (98-107); Creatinine Clr Calc Pharmacy 109.0 ml/min; Glucose 175.0 mg/dl (70-99(Fasting)); Potassium 4.2 mmol/L (3.5-5.1); Sodium 137.0 mmol/L (136-145)
--- NOTE | 2024-08-25 09:49 | Electrocardiogram Report ---
Test Reason : Blood Pressure : */* mmHG Vent. Rate : 121 BPM Atrial Rate : 121 BPM P-R Int : 164 ms QRS Dur : 110 ms QT Int : 334 ms P-R-T Axes : -3 -50 97 degrees QTcB Int : 474 ms Sinus tachycardia with occasional Premature ventricular complexes Left axis deviation LVH with strain pattern and QRS widening Incomplete left bundle block Abnormal ECG When compared with ECG of 26-Jun-2024 15:20, Premature ventricular complexes are now Present Confirmed by Carol Montoya (Casie) on 08/25/2024 9:49:05 AM Referred By: REFERRED SELF Confirmed By: Carol Montoya
--- NOTE | 2024-08-25 11:10 | Electrocardiogram Report ---
Test Reason : Blood Pressure : */* mmHG Vent. Rate : 83 BPM Atrial Rate : 83 BPM P-R Int : 154 ms QRS Dur : 110 ms QT Int : 410 ms P-R-T Axes : 20 252 77 degrees QTcB Int : 481 ms Normal sinus rhythm Incomplete right bundle branch block Septal infarct , age undetermined Abnormal ECG When compared with ECG of 22-Aug-2024 18:43, (unconfirmed) Premature ventricular complexes are no longer Present Incomplete right bundle branch block is now Present Septal infarct is now Present Confirmed by Rodney Cary ([id number]) on 08/25/2024 11:09:46 AM Referred By: REFERRED SELF Confirmed By: Rodney Cary
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
[2024-08-25 11:45] VITALS: PULSE 96
== END 2024-08-25 12:52 | disposition home or self-care (01) | DRG 291 ==
LOC: ED 18:18 → 2W 18:18 → SUATTDRO 22:32 → 2W 23:40

== ENCOUNTER 2024-09-19 18:25 | Observation (INO) ==
[2024-09-19 19:21] LABS: Hematocrit (blood only) 42.9 % (42.0-52.0); Hemoglobin 14.7 g/dl (14.0-18.0); Immature Granulocytes # (auto) 0.04 K/uL (0.01-0.20); Immature Granulocytes % (auto) 0.5 %; Mean Corpuscular Hemoglobin 29.6 pg (25.0-34.0); Mean Corpuscular Volume 86.3 fL (80.0-100.0); Platelet Count 124 K/uL (130-400); RDW Standard Deviation 44.8 fL (36.4-46.3); Red Blood Count 4.97 M/uL (4.70-6.10); White Blood Count 8.10 K/ul (4.8-10.8)
[2024-09-19 19:35] LABS: Alanine Aminotransferase 14.0 U/L (7-52); Albumin Globulin Ratio 1.0 (0.9-2); Alkaline Phosphatase 80.0 U/L (34-104); Anion Gap 8.0 (3-11); Bilirubin,Total 0.6 mg/dl (0.2-1.0); Blood Urea Nitrogen 12.0 mg/dl (6-23); Calcium 8.8 mg/dl (8.6-10.3); Carbon Dioxide 23.0 mmol/L (21-32); Chloride 107.0 mmol/L (98-107); Creatinine Clr Calc Pharmacy 145.7 ml/min; Globulin 3.5 gm/dl (2.5-4.0); Glucose 204.0 mg/dl (70-99(Fasting)); Potassium 4.0 mmol/L (3.5-5.1); Sodium 138.0 mmol/L (136-145); Total Protein 6.9 gm/dl (6.0-8.3)
--- NOTE | 2024-09-19 19:46 | XRay Report ---
EXAM: Portable AP chest radiograph TECHNIQUE: AP portable radiograph of the chest was obtained. INDICATION: Chest pain Comparison: Chest radiograph August 25, 2024 FINDINGS: LINES and TUBES: Left-sided cardiac ICD with lead projecting over the right ventricle of the heart. CARDIOVASCULAR: Cardiac silhouette is stable enlarged in size. LUNGS/PLEURA: Moderate interstitial pulmonary edema, somewhat worsened from previous. No focal consolidation identified. Small pleural fluids are likely. No discernible pneumothorax. OSSEOUS/OTHER: No displaced acute osseous process identified. IMPRESSION: Congestive changes of the cardiovascular system have mildly worsened from previous radiograph dated August 25, 2024. Electronically signed by Arnulfo Gautam 09-19-2024 7:46 PM
[2024-09-19 19:49] LABS: INR 1.0 (0.9-1.1); Partial Thromboplastin Time 30 Seconds (21-31); Prothrombin Time 10.8 Seconds (9.0-12.0)
--- NOTE | 2024-09-19 20:19 | Emergency Department Note ---
Impression & Plan SOB (shortness of breath), Elevated brain natriuretic peptide (BNP) level, Elevated troponin, CHF (congestive heart failure), Tachycardia, Hypertension, Pedal edema, Weight gain, Hypomagnesemia ED Provider Note NAME: HARDIK LOVE AGE: 48 SEX: M : 1975 ARRIVES VIA: Walk-In INFORMANT: [Patient][family] ED PROVIDER(S): [Abhilash Fuentes MD] CHIEF COMPLAINT: Short of breath HISTORY OF PRESENT ILLNESS: The patient is a 48-year-old male with chronic heart failure. He presents to the ER with increasing leg swelling and increasing difficulty breathing. He feels short of breath with exertion. He seems okay lying still. He is on Lasix twice a day and is taking it as prescribed. He is unsure if he has gained any weight lately. There has been no fever, he has been coughing. No chills. No vomiting or diarrhea. He does wear oxygen chronically. PMHx/PSHx/Social Hx: See Below PHYSICAL EXAM: GENERAL: Patient is in no acute distress. HEENT: No acute trauma, normocephalic atraumatic, mucous membranes moist, no nasal congestion. NECK: No stridor, no adenopathy, no meningismus, trachea is midline. LUNGS: Diminished breath sounds bilaterally with some crackles bilaterally, no wheezing. No respiratory distress. HEART: Tachycardic, no obvious murmur, regular rhythm. Heart tones distant. ABDOMEN: Soft, nontender, no peritonitis. EXTREMITIES: No cyanosis, full range of motion of all the joints without pain or difficulty. Bilateral pedal edema, worse on the right. NEUROLOGIC: Oriented x 3, no acute motor or sensory deficits, no focal weakness. SKIN: No jaundice, no diaphoresis. DIFFERENTIAL DIAGNOSIS: CHF, bronchitis or pneumonia, PE, DVT, KS, anemia, viral illness, among others. EMERGENCY DEPARTMENT PROCEDURES: MEDICAL DECISION MAKING: There is no leukocytosis or concerning anemia. Platelet count somewhat low at 124. No bandemia. No coagulopathy. VBG does not show any acidosis or significant CO2 retention. Magnesium is low at 1.4, no renal failure. No concerning liver enzyme elevation. Chest x-ray does show cardiomegaly and CHF. BNP was elevated at 678, consistent with CHF. ECG shows a sinus rhythm with LVH. There are some chronic changes, no acute ST elevation. Cardiac enzyme testing x 1 is slightly elevated. This troponin elevation could be consistent with his dyspnea or potential cardiac injury. On exam, the patient did have diminished breath sounds, he was tachycardic. He had pedal edema. A bilateral lower extremity ultrasound was performed, there was no finding of DVT. The patient was given nitroglycerin paste to help with his blood pressure and fluid overload. He received 80 mg of IV Lasix. He was given 2 g of IV magnesium. Looking back at his recent visits, he has gained 4 kg in just around a week. I suspect the weight gain is fluid. Given the dyspnea, the tachycardia, the weight gain, his past history, the low magnesium, his findings of CHF, I do think a hospital stay would be warranted. He requires IV diuresis and electrolyte replacement. He requires cardiac monitoring. I spoke with the patient and case management. The on-call hospitalist was consulted. The patient's blood pressure and heart rate have improved with treatment here in the ED. Prior/Outside records/notes reviewed: None ECG per my interpretation: Indication was shortness of breath. The ECG shows a normal sinus rhythm with a rate of 98. There is LVH present. There are inverted T waves noted laterally. There is incomplete right bundle branch block. There is no acute ST elevation. There is an old septal infarct. No PVCs. The QTc is 487. Compared to an ECG from 24 August 2024, the lateral T wave changes are more pronounced. Continuous Cardiac Monitoring per my interpretation: An order was placed for continuous cardiac monitoring. The monitor shows a rate of 99 with normal sinus rhythm. Imaging/x-ray results per my interpretation: Chest x-ray does show CHF, possibly worse than previous films. No focal infiltrate. Chronic Medical/Social conditions affecting care: Chronic O2 use, chronic CHF. Care/Management discussed with: Case management, the on-call hospitalist. Level of care consideration(s): After review of the information above and other included data: --I believe the patient requires escalation of care to admission Critical Care Note: I have personally spent 41 minutes of critical care time in the direct management of this patient. This includes bedside care, interpretation of diagnostic studies, and testing, discussion with consultants, patient, and family members, and other required patient management activities. This 41 minutes is in excess of all separately billable procedures. DISPOSITION: Admission Past Med/Surg History Problem List (Updated 09/19/24 @ 22:49 by Abhilash Fuentes MD) Hypomagnesemia (Acute) Weight gain (Acute) Pedal edema (Acute) Hypertension (Acute) Tachycardia (Acute) CHF (congestive heart failure) (Acute) Elevated troponin (Acute) Elevated brain natriuretic peptide (BNP) level (Acute) SOB (shortness of breath) (Acute) Chest pain (Acute) Elevated troponin (Acute) Hypokalemia Acute on chronic systolic CHF (congestive heart failure) (Acute) Acute kidney failure Left knee pain Elevated brain natriuretic peptide (BNP) level (Acute) Hypomagnesemia (Acute) Acute exacerbation of CHF (congestive heart failure) (Acute) Venous stasis dermatitis Non-sustained ventricular tachycardia (Acute) Pulmonary edema (Acute) Lightheadedness (Acute) Dyspnea (Acute) Acute on chronic heart failure with reduced ejection fraction (HFrEF, <= 40%) Periapical abscess Pulmonary edema (Acute) Hypomagnesemia (Acute) Type 2 diabetes mellitus with peripheral neuropathy Diabetic peripheral neuropathy Non-proliferative diabetic retinopathy, both eyes Uncontrolled diabetes mellitus with hyperglycemia Normocytic anemia Poor intravenous access Chronic anticoagulation Diabetes mellitus type II, uncontrolled (Chronic) Urinary bladder incontinence Hx of local infection of skin and subcutaneous tissue Ambulatory dysfunction (Chronic) Recurrent infection of skin Pulmonary nodule V tach (Acute) Hemoptysis (Acute) Vitamin D deficiency Medical History Type 2 diabetes mellitus with microalbuminuria HFrEF (heart failure with reduced ejection fraction) Chronic respiratory failure Chronic respiratory failure with hypoxia Type 2 diabetes mellitus with obesity Morbid obesity with BMI of 50.0-59.9, adult Hypertension Non-sustained ventricular tachycardia Obstructive sleep apnea NICM (nonischemic cardiomyopathy) Pt admitted for elective ICD. Underwent procedure without any complications monitored over night and discharged home. Combined systolic and diastolic heart failure Nonischemic cardiomyopathy, unclear etiology. Difficult to manage. Integrated into heart failure clinic. Frequent admissions for heart failure exacerbations. Echo (05/31) EF=25-30% with mod to severe global hypokinesis, basal kelsi-septal akinetic wall, LVH, RVSP elevated at 30-40mmHg, and mod dilated ascending aorta. Managed medically with ASA + BB + ARB/Neprilysin inhibitor (Entresto) + high dose furosemide (160mg BID) + metolazone (3x weekly). Considering ICD given EF. COPD (chronic obstructive pulmonary disease) Hypomagnesemia Medical non-compliance Intellectual disability Chronic dental pain Small bowel obstruction Housing instability, currently housed, at risk for homelessness Hearing loss of both ears Nonproliferative retinopathy due to secondary diabetes Dilatation of thoracic aorta Iliac aneurysm Vitamin D insufficiency Previously deficient, taking Vit D supplementation Umbilical hernia Lung nodule Fatty liver Surgical History AICD (automatic cardioverter/defibrillator) present H/O oral surgery History of carpal tunnel surgery S/P tonsillectomy History of cholecystectomy Family History Father , age 57 of an KS. Heart disease Myocardial infarction Mother , age 67 of a ruptured neck vessel Sudden Other Depression Lung disease No pertinent family history Denies family history of Ovarian cancer Prostate cancer Breast cancer Colorectal cancer Social History Smoking Status: Current every day smoker Tobacco Type: Cigarettes Age Started Using Tobacco: 14; Age Quit Using Tobacco: 18; packs per day: 1; Second Hand Exposure: No; Do You Dip or Chew Tobacco: No; Hx Alcohol Use: No Hx Substance Use: No Preferred Language: Sri [place]ankan Communication Ability: Effective Visual Impairment: No Limitations Hearing Ability: Normal Marketing Development Representative Required: No Beliefs That Will Affect Care: None marital status: Current Living Situation: Family Current Living Situation Comment: Lives at home with current occupational status: unemployed How many Children do You have: 0 Feels Safe at Home: Yes Childhood Exposure to Second-Hand Smoke: Yes Dental Care, Regularly: Yes Physical Activity Frequency: Does not Exercise Seatbelt Use: never Sunscreen Use: No Assistive Devices: Oxygen - Continuous and Walker Allergies Allergies Allergy/AdvReac Type Severity Reaction Status Date / Time albuterol Allergy Severe proair Verified 09/19/24 21:09 "trouble taking breaths" ceftriaxone Allergy Severe SHORTNESS Verified 09/19/24 21:09 OF BREATH lidocaine Allergy Severe SHORTNESS Verified 09/19/24 21:09 OF BREATH, diaphoretic, hives mushroom Allergy Severe Anaphylaxis Verified 09/19/24 21:09 procaine Allergy Severe SHORTNESS Verified 09/19/24 21:09 OF BREATH, diaphoretic, hives amoxicillin Allergy Intermediate HIVES/FACIAL Verified 09/19/24 21:09 SWELLING clavulanic acid Allergy Intermediate HIVES/FACIAL Verified 09/19/24 21:09 SWELLING lisinopril Allergy Intermediate HIVES Verified 09/19/24 21:09 shellfish derived Allergy Unknown Unknown Verified 09/19/24 21:09 acetaminophen AdvReac Mild NAUSEA Verified 09/19/24 21:09 Fish Containing Products AdvReac Unknown Unknown Verified 09/19/24 21:09 Home Meds Home Medications Medication Instructions Recorded Confirmed nitroglycerin 0.4 mg sublingual 0.4 mg sublingual UD PRN Chest Pain 04/24/19 09/19/24 tablet (Nitrostat) aspirin 81 mg tablet,delayed 81 mg PO QAM 06/16/21 09/19/24 release (Neisha Low Dose Aspirin) albuterol sulfate 2.5 mg/3 mL 2.5 mg inhalation Q6H PRN 12/02/21 09/19/24 (0.083 %) solution for nebulization Shortness Of Breath Or Wheezing budesonide 0.25 mg/2 mL suspension 0.25 mg inhalation DAILY PRN 09/15/22 09/19/24 for nebulization Shortness Of Breath albuterol sulfate 90 mcg/actuation 1 inh inhalation QID PRN Shortness 10/12/23 09/19/24 aerosol inhaler Of Breath Or Wheezing lidocaine 5 % topical patch 1 patch topical DAILY PRN Pain 11/03/23 09/19/24 insulin glargine 100 unit/mL (3 50 unit subcut BID 04/28/24 09/19/24 mL) subcutaneous pen magnesium oxide 400 mg (241.3 mg 400 mg PO QAM 08/22/24 09/19/24 magnesium) tablet Previous Rx's Medication Instructions Recorded blood-glucose meter (HealthyTweetuch #1 ea 10/12/22 Verio Flex Meter) lancets 30 gauge (PeopleDocTouch Delica #100 ea 10/12/22 Plus Lancet) Symbicort 160 mcg-4.5 2 inh inhalation BID #3 Inhalers 11/14/22 mcg/actuation HFA aerosol inhaler (budesonide-formoterol) blood sugar diagnostic (HealthyTweetuch #100 ea 01/17/23 Verio test strips) pen needle, diabetic 31 gauge x #100 ea 02/16/23 5/16" (Comfort EZ Pen [place]) trolamine salicylate 10 % topical 1 applic EXT BID PRN left sided 11/06/23 cream (Myoflex) neck pain #35.4 grams blood-glucose sensor (FreeStyle #2 ea 12/13/23 Karla 3 Plus Sensor device) blood-glucose,ventilator specialist,cont #1 ea 01/14/24 (FreeStyle Karla 3 [place]) blood-glucose,ventilator specialist,cont #1 ea 01/14/24 (FreeStyle Karla 3 [place]) Farxiga 10 mg tablet 10 mg PO DAILY #90 tabs 04/28/24 (dapagliflozin propanediol) isosorbide mononitrate 60 mg 60 mg PO DAILY #90 tabs 04/28/24 tablet,extended release 24 hr metoprolol succinate 100 mg 100 mg PO BID #180 tabs 04/28/24 tablet,extended release 24 hr sacubitril 97 mg-valsartan 103 mg 1 tab PO BID #180 tabs 04/28/24 tablet (Entresto) nystatin 100,000 unit/gram topical 1 applic topical BID PRN Skin 05/09/24 powder Irritation #60 grams tirzepatide 7.5 mg/0.5 mL 7.5 mg (0.5 mL) subcut Q7D 30 days 05/09/24 subcutaneous pen injector #2 mL Oxygen Home #1 ea 05/29/24 spironolactone 50 mg tablet 50 mg PO BID #60 tabs 06/24/24 furosemide 80 mg tablet 80 mg PO BID #60 tabs 06/28/24 metoprolol succinate 25 mg 25 mg PO BID #60 tabs 07/15/24 tablet,extended release 24 hr Portable Oxygen #1 ea 08/20/24 metolazone 2.5 mg tablet 2.5 mg PO DAILY #3 tabs 09/04/24 triamcinolone acetonide 0.025 % 1 applic topical TID PRN rash #454 09/04/24 topical cream grams atorvastatin 10 mg tablet 10 mg PO DAILY #90 tabs 09/11/24 Results & Data (ED) Vital Signs Vital Signs - 24 hr 09/19/24 18:25 09/19/24 19:48 09/19/24 20:00 Temperature 36.6 C Temperature Source Temporal Artery Scan Pulse Rate 103 H 93 H 93 H Pulse Rate [Left Apical] Pulse Rate from SpO2 Sensor Pulse Rhythm Respiratory Rate 18 24 25 H Blood Pressure 166/120 H 167/106 H Blood Pressure [Right Arm] Blood Pressure Mean 135 111 Blood Pressure Mean [Right Arm] Pulse Oximetry 95 96 96 Oxygen Delivery Method Nasal Cannula Oxygen Flow Rate 3 Sepsis Recent Fever Within 48 Hours No Sepsis New/Unexplained Change in Mental Status N/A Sepsis Action Taken by Nursing No Action Required 09/19/24 20:03 09/19/24 20:03 09/19/24 20:30 Temperature Temperature Source Pulse Rate 99 H 100 H Pulse Rate [Left Apical] Pulse Rate from SpO2 Sensor Pulse Rhythm Regular Respiratory Rate 20 22 Blood Pressure Blood Pressure [Right Arm] Blood Pressure Mean Blood Pressure Mean [Right Arm] Pulse Oximetry 97 97 96 Oxygen Delivery Method Room Air Room Air Oxygen Flow Rate 9 Sepsis Recent Fever Within 48 Hours Sepsis New/Unexplained Change in Mental Status Sepsis Action Taken by Nursing 09/19/24 21:27 09/19/24 21:29 09/19/24 21:29 Temperature Temperature Source Pulse Rate 94 H Pulse Rate [Left Apical] 106 H Pulse Rate from SpO2 Sensor 98 H Pulse Rhythm Respiratory Rate 23 22 Blood Pressure 170/126 H Blood Pressure [Right Arm] 170/126 H Blood Pressure Mean 137 Blood Pressure Mean [Right Arm] 140 Pulse Oximetry 99 97 Oxygen Delivery Method Nasal Cannula Oxygen Flow Rate 4 Sepsis Recent Fever Within 48 Hours Sepsis New/Unexplained Change in Mental Status Sepsis Action Taken by Nursing 09/19/24 21:30 09/19/24 21:48 09/19/24 21:51 Temperature Temperature Source Pulse Rate 112 H 115 H 105 H Pulse Rate [Left Apical] Pulse Rate from SpO2 Sensor 108 H 116 H 105 H Pulse Rhythm Respiratory Rate 22 26 H 24 Blood Pressure Blood Pressure [Right Arm] Blood Pressure Mean Blood Pressure Mean [Right Arm] Pulse Oximetry 96 93 92 Oxygen Delivery Method Oxygen Flow Rate Sepsis Recent Fever Within 48 Hours Sepsis New/Unexplained Change in Mental Status Sepsis Action Taken by Nursing 09/19/24 22:02 Temperature Temperature Source Pulse Rate Pulse Rate [Left Apical] Pulse Rate from SpO2 Sensor Pulse Rhythm Respiratory Rate Blood Pressure 155/99 H Blood Pressure [Right Arm] Blood Pressure Mean 128 Blood Pressure Mean [Right Arm] Pulse Oximetry Oxygen Delivery Method Oxygen Flow Rate Sepsis Recent Fever Within 48 Hours Sepsis New/Unexplained Change in Mental Status Sepsis Action Taken by Group Home Medications Current Medication List: was personally reviewed by me Laboratory Data Attestation: I reviewed the patient's lab results. 09/19/24 19:04 09/19/24 19:04 Lab Results 09/19/24 09/19/24 09/19/24 Range/Units 19:04 20:37 21:10 WBC 8.10 (4.8-10.8) K/ul RBC 4.97 (4.70-6.10) M/uL Hgb 14.7 (14.0-18.0) g/dl Hct 42.9 (42.0-52.0) % MCV 86.3 (80.0-100.0) fL MCH 29.6 (25.0-34.0) pg MCHC 34.3 (32.0-36.0) g/dL RDW Std Deviation 44.8 (36.4-46.3) fL RDW Coeff of Zoltan 14.2 (11.5-14.5) % Plt Count 124 L (130-400) K/uL MPV 9.8 (9.4-12.4) fL Immature Gran % (Auto) 0.5 % Neut % (Auto) 64.1 % Lymph % (Auto) 26.9 % [place] % (Auto) 6.8 % Eos % (Auto) 1.5 % Baso % (Auto) 0.2 % Neut # (Auto) 5.19 (1.40-6.50) K/uL Lymph # (Auto) 2.18 (1.20-3.40) K/uL [place] # (Auto) 0.55 (0.11-0.59) K/uL Eos # (Auto) 0.12 (0.00-0.50) K/uL Baso # (Auto) 0.02 (0.00-0.20) K/uL Immature Gran # (Auto) 0.04 (0.01-0.20) K/uL PT 10.8 (9.0-12.0) Seconds INR 1.0 (0.9-1.1) APTT 30 (21-31) Seconds PTT Ratio 1.1 VBG pH 7.43 H (7.36-7.41) VBG pCO2 40 (38-50) mmHg VBG pO2 62 mmHg VBG HCO3 27 mmol/L VBG O2 Saturation 92.5 % VBG Base Excess 2.0 mEq/L Sodium 138 (136-145) mmol/L Potassium 4.0 (3.5-5.1) mmol/L Chloride 107 (98-107) mmol/L Carbon Dioxide 23 (21-32) mmol/L Anion Gap 8 (3-11) BUN 12 (6-23) mg/dl Creatinine 0.90 (0.6-1.4) mg/dl Est Cr Clr Drug Dosing 145.7 ml/min eGFR 106.01 BUN/Creatinine Ratio 13.3 (10-20) Glucose 204 H (70-99(Fasting)) mg/dl Calcium 8.8 (8.6-10.3) mg/dl Magnesium 1.4 L (1.7-2.4) mg/dl Total Bilirubin 0.6 (0.2-1.0) mg/dl AST 17 (13-39) U/L ALT 14 (7-52) U/L Alkaline Phosphatase 80 (34-104) U/L Troponin I High Sens 23.6 H 27.1 H (0-20) pg/ml B-Natriuretic Peptide 678 H (0-100) pg/ml Total Protein 6.9 (6.0-8.3) gm/dl Albumin 3.4 (3.4-5.0) gm/dl Globulin 3.5 (2.5-4.0) gm/dl Albumin/Globulin Ratio 1.0 (0.9-2) Administered Medications Discontinued Medications Furosemide (Furosemide 40 Mg/4 Ml Vial) 80 mg IV ONE ONE Stop: 09/19/24 20:14 Last Admin: 09/19/24 21:30 Dose: 80 mg Documented By: CORY Magnesium Sulfate/Dextrose (Magnesium Sulfate / D5w) 1 gm in 100 mls @ 100 mls/hr IV Q1H SUKHWINDER Stop: 09/19/24 22:21 Last Admin: 09/19/24 22:07 Dose: Not Given Documented By: Infusion: 09/19/24 22:07 Dose: Infused Documented By: Admin: 09/19/24 21:30 Dose: 100 mls/hr Documented By: CORY Nitroglycerin (Nitroglycerin 2% Ointment 30gm Tube) 1 inch EXT NOW STA Stop: 09/19/24 21:54 Last Admin: 09/19/24 22:02 Dose: Not Given Documented By: ANT Imaging Data Radiologist's Impression: Chest X-Ray 09/19/24 18:31 EXAM: Portable AP chest radiograph TECHNIQUE: AP portable radiograph of the chest was obtained. INDICATION: Chest pain Comparison: Chest radiograph August 25, 2024 FINDINGS: LINES and TUBES: Left-sided cardiac ICD with lead projecting over the right ventricle of the heart. CARDIOVASCULAR: Cardiac silhouette is stable enlarged in size. LUNGS/PLEURA: Moderate interstitial pulmonary edema, somewhat worsened from previous. No focal consolidation identified. Small pleural fluids are likely. No discernible pneumothorax. OSSEOUS/OTHER: No displaced acute osseous process identified. IMPRESSION: Congestive changes of the cardiovascular system have mildly worsened from previous radiograph dated August 25, 2024. Electronically signed by Arnulfo Gautam 09-19-2024 7:46 PM Discharge Plan Visit Data Chief Complaint: Shortness of Breath/Dyspnea Stated Complaint: SOB ED Provider: Abhilash Fuentes Discharge Problem: SOB (shortness of breath), Elevated brain natriuretic peptide (BNP) level, Elevated troponin, CHF (congestive heart failure), Tachycardia, Hypertension, Pedal edema, Weight gain, Hypomagnesemia Patient Disposition: Admitted As Inpatient Condition: Fair Forms Stand Alone Forms: [employer] Prescriptions Prescriptions: No Action (DME) FreeStyle Karla 3 [place] Misc See Rx Instructions .Route Qty: 1 1RF Rx Instructions: moniotr blood sugar (DME) FreeStyle Karla 3 [place] Misc See Rx Instructions .ROUTE .MEDSUPPLY Qty: 1 0RF Rx Instructions: use with karla 3 + sensor tirzepatide 7.5 mg/0.5 mL pen injector 7.5 mg subcut Q7D 30 Days Qty: 2 3RF Rx Instructions: [place] spironolactone 50 mg tablet 50 mg PO BID Qty: 60 1RF metoprolol succinate 25 mg tablet extended release 24 hr 25 mg PO BID Qty: 60 0RF Rx Instructions: TOTAL DOSE 125 MG--TAKES WITH 100 MG TAB. (DME) Portable Oxygen Misc See Rx Instructions .Route Qty: 1 0RF Rx Instructions: Portable oxygen concentrator atorvastatin 10 mg tablet 10 mg PO DAILY Qty: 90 3RF (DME) pen needle, diabetic [Comfort EZ Pen [place]] 31 gauge x 5/16" needle See Rx Instructions .Route Qty: 100 3RF Rx Instructions: use when administering insuling daily budesonide 0.25 mg/2 mL suspension for nebulization 0.25 mg inhalation DAILY PRN (Reason: Shortness Of Breath) budesonide-formoterol [Symbicort] 160-4.5 mcg/actuation HFA aerosol inhaler 2 inh inhalation BID Qty: 3 3RF Rx Instructions: 2 puffs twice per day. Rinse mouth after each use (DME) OneTouch Verio test strips Strip See Rx Instructions miscellaneous .MEDSUPPLY Qty: 100 5RF Rx Instructions: check 3x a day (DME) lancets [OneTouch Delica Plus Lancet] 30 gauge misc See Rx Instructions .ROUTE .MEDSUPPLY Qty: 100 5RF Rx Instructions: use new lancet 3x a day (DME) blood-glucose meter [OneTouch Verio Flex meter] Misc See Rx Instructions .ROUTE .MEDSUPPLY Qty: 1 0RF Rx Instructions: As directed (DME) FreeStyle Karla 3 Plus Sensor Device See Rx Instructions .ROUTE .MEDSUPPLY Qty: 2 11RF Rx Instructions: change sensor every 15 days (DME) Oxygen Home Liters Per Minute See Rx Instructions .MEDSUPPLY Qty: 1 0RF Rx Instructions: Home Oxygen concentrator with portability, test for conserving device. 2-4LMP via n/c at rest/sleep and 2-4 LPM via n/c with exertion; VÍCTOR 99. nystatin 100,000 unit/gram powder 1 applic topical BID PRN (Reason: Skin Irritation) Qty: 60 0RF insulin glargine 100 unit/mL (3 mL) insulin pen 50 unit subcut BID isosorbide mononitrate 60 mg tablet extended release 24 hr 60 mg PO DAILY Qty: 90 1RF metoprolol succinate 100 mg tablet extended release 24 hr 100 mg PO BID Qty: 180 1RF Rx Instructions: TOTAL DOSE 125 MG--TAKES WITH 25 MG TAB. dapagliflozin propanediol [Farxiga] 10 mg tablet 10 mg PO DAILY Qty: 90 1RF Entresto 97-103 mg tablet 1 tab PO BID Qty: 180 1RF metolazone 2.5 mg tablet 2.5 mg PO DAILY Qty: 3 0RF triamcinolone acetonide 0.025 % cream 1 applic topical TID PRN (Reason: rash) Qty: 454 0RF nitroglycerin [Nitrostat] 0.4 mg tablet, sublingual 0.4 mg sublingual UD PRN (Reason: Chest Pain) aspirin [Neisha Low Dose Aspirin] 81 mg tablet,delayed release (DR/EC) 81 mg PO QAM albuterol sulfate 2.5 mg /3 mL (0.083 %) solution for nebulization 2.5 mg inhalation Q6H PRN (Reason: Shortness Of Breath Or Wheezing) Rx Instructions: Use every 6 hours as needed with nebulizer albuterol sulfate 90 mcg/actuation HFA aerosol inhaler 1 inh inhalation QID PRN (Reason: Shortness Of Breath Or Wheezing) magnesium oxide 400 mg (241.3 mg magnesium) tablet 400 mg PO QAM lidocaine 5 % adhesive patch,medicated 1 patch topical DAILY PRN (Reason: Pain) trolamine salicylate [Myoflex] 10 % Cream 1 applic EXT BID PRN (Reason: left sided neck pain) Qty: 35.4 0RF furosemide 80 mg tablet 80 mg PO BID Qty: 60 0RF Referrals Referrals: Gosia Martinez MD [Primary Care Provider] - Discharge Problem: CHF (congestive heart failure) Qualifiers: Heart failure type: unspecified Heart failure chronicity: acute on chronic Q ualified Code(s): I50.9 - Heart failure, unspecified Hypertension Qualifiers: Hypertension type: unspecified Qualified Code(s): I10 - Essential (primary) hypertension
[2024-09-19 20:21] LABS: Magnesium 1.4 mg/dl (1.7-2.4)
[2024-09-19 20:46] LABS: Base Excess VBG 2.0 mEq/L; HCO3 VBG 27 mmol/L; Oxygen Saturation VBG 92.5 %; PCO2 VBG 40 mmHg (38-50); PO2 VBG 62 mmHg; pH VBG 7.43 (7.36-7.41)
[2024-09-19] MEDS: FUROSEMIDE 40 MG/4 ML VIAL IV ONE (21:30)
[2024-09-19] MEDS: MAGNESIUM SULFATE / D5W 1 GM/100 ML BAG IV SCH (21:30)
[2024-09-19] MEDS: NITROGLYCERIN 2% OINTMENT 30GM TUBE EXT STA (22:02)
[2024-09-19] MEDS: COUGH DROP (SUGAR FREE) LOZ 24 LOZ/1 BOX BUCCAL STA (22:44)
[2024-09-19] MEDS ORDERED: ONDANSETRON INJ 2 MG/ML 2 ML VIAL IV PRN ×2 (23:15→23:27)
[2024-09-19] MEDS ORDERED: ACETAMINOPHEN 325 MG TAB PO PRN ×2 (23:15→23:27)
--- NOTE | 2024-09-19 23:18 | History & Physical Report ---
Date of Service September 19, 2024 Assessment & Plan (1) CHF (congestive heart failure): (2) SOB (shortness of breath): (3) Elevated troponin: (4) Hypomagnesemia: (5) COPD (chronic obstructive pulmonary disease): (6) Obstructive sleep apnea: (7) Hypertension: (8) Type 2 diabetes mellitus with obesity: Plan 48yo male with history of combined systolic and diastolic HF, NICM with EF of 15-20% presenting with worsening SOB and edema. Patient's last recorded weight on 09/11 = 144kg, weighs in at 147.8kg today. #Acute on chronic heart failure - patient presenting with worsening edema, BRISCOE. -Admit to medical with telemetry -Lasix 80mg IV BID -Monitor intake/output and daily weights -Continue home metoprolol, spironolactone, isosorbide mononitrate and entresto -Continue Metolazone -BMP q 12 hours -Electrolyte repletion -Closely monitor volume status with ongoing diuresis - patient has become dry in the past due to overdiuresis and has required IVF. #Elevated troponin -Trend to peak, repeat in AM -Continue home ASA #Hypomagnesemia - Mg=1.4 -1gm magnesium administered, 2nd gram ordered - patient refusing at this time -repeat Mg level in AM #Diabetes - typically requiring 30-35u of Lantus at home -Lantus 12u BID -ISS -Goal blood sugar 110- 140 #COPD - chronic respiratory failure with hypoxia - Obesity hypoventilation syndrome -Continue supplemental O2 -BiPAP qHS with ongoing oxygen -Continue Symbicort, Albuterol, Budesonide/Formoterol' #MARIELENA -CPAP qHS History of Present Illness Chief Complaint: shortness of breath Primary Care Provider: Gosia Martinez MD Alok Huff is a 48yo male with history of NICM (EF of 15-20%, severely dilated LV with severe global hypokinesis of the LV with septal dyskinesis per echo 08/23/2024), paroxysmal VT with single chamber ICD in place, chronic hypoxic respiratory failure on home O2, DM and HTN presenting with shortness of breath and weight gain. Patient reports compliance with his home medications as well as salt-restricted diet. He reports gaining weight as well as worsening bilateral LE edema R>L and SOB. He states he is having difficulty catching his breath. No chest pain or palpitations. No fever. In the ER he is hypertensive, tachycardic and tachypneic. Adequate oxygenation on 5L NC - patient typically uses 3-4L at home he reports ER Course: Lasix 80mg IV Mg x 1gm Lantus 12u Patient refused additional magnesium, Lovenox injection Allergies Allergy/AdvReac Type Severity Reaction Status Date / Time albuterol Allergy Severe proair Verified 09/19/24 21:09 "trouble taking breaths" ceftriaxone Allergy Severe SHORTNESS Verified 09/19/24 21:09 OF BREATH lidocaine Allergy Severe SHORTNESS Verified 09/19/24 21:09 OF BREATH, diaphoretic, hives mushroom Allergy Severe Anaphylaxis Verified 09/19/24 21:09 procaine Allergy Severe SHORTNESS Verified 09/19/24 21:09 OF BREATH, diaphoretic, hives amoxicillin Allergy Intermediate HIVES/FACIAL Verified 09/19/24 21:09 SWELLING clavulanic acid Allergy Intermediate HIVES/FACIAL Verified 09/19/24 21:09 SWELLING lisinopril Allergy Intermediate HIVES Verified 09/19/24 21:09 shellfish derived Allergy Unknown Unknown Verified 09/19/24 21:09 acetaminophen AdvReac Mild NAUSEA Verified 09/19/24 21:09 Fish Containing Products AdvReac Unknown Unknown Verified 09/19/24 21:09 Home Medications Medication Instructions Recorded Confirmed Type nitroglycerin 0.4 mg sublingual 0.4 mg sublingual UD PRN Chest Pain 04/24/19 09/19/24 History tablet (Nitrostat) aspirin 81 mg tablet,delayed 81 mg PO QAM 06/16/21 09/19/24 History release (Neisha Low Dose Aspirin) albuterol sulfate 2.5 mg/3 mL 2.5 mg inhalation Q6H PRN 12/02/21 09/19/24 History (0.083 %) solution for nebulization Shortness Of Breath Or Wheezing budesonide 0.25 mg/2 mL suspension 0.25 mg inhalation DAILY PRN 09/15/22 09/19/24 History for nebulization Shortness Of Breath blood-glucose meter (UgenieTouch #1 ea 10/12/22 09/11/24 Rx Verio Flex Meter) lancets 30 gauge (OneTouch Delica #100 ea 10/12/22 09/11/24 Rx Plus Lancet) Symbicort 160 mcg-4.5 2 inh inhalation BID #3 Inhalers 11/14/22 09/19/24 Rx mcg/actuation HFA aerosol inhaler (budesonide-formoterol) blood sugar diagnostic (OneTouch #100 ea 01/17/23 09/11/24 Rx Verio test strips) pen needle, diabetic 31 gauge x #100 ea 02/16/23 09/11/24 Rx 5/16" (Comfort EZ Pen [place]) albuterol sulfate 90 mcg/actuation 1 inh inhalation QID PRN Shortness 10/12/23 09/19/24 History aerosol inhaler Of Breath Or Wheezing lidocaine 5 % topical patch 1 patch topical DAILY PRN Pain 11/03/23 09/19/24 History trolamine salicylate 10 % topical 1 applic EXT BID PRN left sided 11/06/23 09/19/24 Rx cream (Myoflex) neck pain #35.4 grams blood-glucose sensor (FreeStyle #2 ea 12/13/23 09/11/24 Rx Karla 3 Plus Sensor device) blood-glucose,tank truck milk receiver,cont #1 ea 01/14/24 09/11/24 Rx (FreeStyle Karla 3 [place]) blood-glucose,tank truck milk receiver,cont #1 ea 01/14/24 09/11/24 Rx (FreeStyle Karla 3 [place]) Farxiga 10 mg tablet 10 mg PO DAILY #90 tabs 04/28/24 09/19/24 Rx (dapagliflozin propanediol) insulin glargine 100 unit/mL (3 50 unit subcut BID 04/28/24 09/19/24 History mL) subcutaneous pen isosorbide mononitrate 60 mg 60 mg PO DAILY #90 tabs 04/28/24 09/19/24 Rx tablet,extended release 24 hr metoprolol succinate 100 mg 100 mg PO BID #180 tabs 04/28/24 09/19/24 Rx tablet,extended release 24 hr sacubitril 97 mg-valsartan 103 mg 1 tab PO BID #180 tabs 04/28/24 09/19/24 Rx tablet (Entresto) nystatin 100,000 unit/gram topical 1 applic topical BID PRN Skin 05/09/24 09/19/24 Rx powder Irritation #60 grams tirzepatide 7.5 mg/0.5 mL 7.5 mg (0.5 mL) subcut Q7D 30 days 05/09/24 09/19/24 Rx subcutaneous pen injector #2 mL Oxygen Home #1 ea 05/29/24 09/11/24 Rx spironolactone 50 mg tablet 50 mg PO BID #60 tabs 06/24/24 09/19/24 Rx furosemide 80 mg tablet 80 mg PO BID #60 tabs 06/28/24 09/19/24 Rx metoprolol succinate 25 mg 25 mg PO BID #60 tabs 07/15/24 09/19/24 Rx tablet,extended release 24 hr Portable Oxygen #1 ea 08/20/24 09/11/24 Rx magnesium oxide 400 mg (241.3 mg 400 mg PO QAM 08/22/24 09/19/24 History magnesium) tablet metolazone 2.5 mg tablet 2.5 mg PO DAILY #3 tabs 09/04/24 09/19/24 Rx triamcinolone acetonide 0.025 % 1 applic topical TID PRN rash #454 09/04/24 09/19/24 Rx topical cream grams atorvastatin 10 mg tablet 10 mg PO DAILY #90 tabs 09/11/24 09/19/24 Rx Past Med/Surg History Problem List Hypomagnesemia (Acute) Weight gain (Acute) Pedal edema (Acute) Hypertension (Acute) Tachycardia (Acute) CHF (congestive heart failure) (Acute) Elevated troponin (Acute) Elevated brain natriuretic peptide (BNP) level (Acute) SOB (shortness of breath) (Acute) Chest pain (Acute) Elevated troponin (Acute) Hypokalemia Acute on chronic systolic CHF (congestive heart failure) (Acute) Acute kidney failure Left knee pain Elevated brain natriuretic peptide (BNP) level (Acute) Hypomagnesemia (Acute) Acute exacerbation of CHF (congestive heart failure) (Acute) Venous stasis dermatitis Non-sustained ventricular tachycardia (Acute) Pulmonary edema (Acute) Lightheadedness (Acute) Dyspnea (Acute) Acute on chronic heart failure with reduced ejection fraction (HFrEF, <= 40%) Periapical abscess Pulmonary edema (Acute) Hypomagnesemia (Acute) Type 2 diabetes mellitus with peripheral neuropathy Diabetic peripheral neuropathy Non-proliferative diabetic retinopathy, both eyes Uncontrolled diabetes mellitus with hyperglycemia Normocytic anemia Poor intravenous access Chronic anticoagulation Diabetes mellitus type II, uncontrolled (Chronic) Urinary bladder incontinence Hx of local infection of skin and subcutaneous tissue Ambulatory dysfunction (Chronic) Recurrent infection of skin Pulmonary nodule V tach (Acute) Hemoptysis (Acute) Vitamin D deficiency Medical History Type 2 diabetes mellitus with microalbuminuria HFrEF (heart failure with reduced ejection fraction) Chronic respiratory failure Chronic respiratory failure with hypoxia Type 2 diabetes mellitus with obesity Morbid obesity with BMI of 50.0-59.9, adult Hypertension Non-sustained ventricular tachycardia Obstructive sleep apnea NICM (nonischemic cardiomyopathy) Pt admitted for elective ICD. Underwent procedure without any complications monitored over night and discharged home. Combined systolic and diastolic heart failure Nonischemic cardiomyopathy, unclear etiology. Difficult to manage. Integrated into heart failure clinic. Frequent admissions for heart failure exacerbations. Echo (05/31) EF=25-30% with mod to severe global hypokinesis, basal kelsi-septal akinetic wall, LVH, RVSP elevated at 30-40mmHg, and mod dilated ascending aorta. Managed medically with ASA + BB + ARB/Neprilysin inhibitor (Entresto) + high dose furosemide (160mg BID) + metolazone (3x weekly). Considering ICD given EF. COPD (chronic obstructive pulmonary disease) Hypomagnesemia Medical non-compliance Intellectual disability Chronic dental pain Small bowel obstruction Housing instability, currently housed, at risk for homelessness Hearing loss of both ears Nonproliferative retinopathy due to secondary diabetes Dilatation of thoracic aorta Iliac aneurysm Vitamin D insufficiency Previously deficient, taking Vit D supplementation Umbilical hernia Lung nodule Fatty liver Surgical History AICD (automatic cardioverter/defibrillator) present H/O oral surgery History of carpal tunnel surgery S/P tonsillectomy History of cholecystectomy Family History Father , age 57 of an [place]. Heart disease Myocardial infarction Mother , age 67 of a ruptured neck vessel Sudden Other Depression Lung disease No pertinent family history Denies family history of Ovarian cancer Prostate cancer Breast cancer Colorectal cancer Social History Smoking Status: Never smoker Tobacco Type: Cigarettes Age Started Using Tobacco: 14; Age Quit Using Tobacco: 18; packs per day: 1; Second Hand Exposure: No; Do You Dip or Chew Tobacco: No; Hx Alcohol Use: No Hx Substance Use: No Preferred Language: Mozambican Communication Ability: Effective Visual Impairment: No Limitations Hearing Ability: Normal Fourth Mate Required: No Beliefs That Will Affect Care: None marital status: Current Living Situation: Family Current Living Situation Comment: Lives at home with current occupational status: unemployed How many Children do You have: 0 Feels Safe at Home: Yes Childhood Exposure to Second-Hand Smoke: Yes Dental Care, Regularly: Yes Physical Activity Frequency: Does not Exercise Seatbelt Use: never Sunscreen Use: No Assistive Devices: CPAP and Oxygen - Continuous Review of Systems Review of Systems: All systems reviewed & are unremarkable except as noted in HPI & below Physical Exam Physical Exam: General: patient resting comfortably, NAD, non-toxic in appearance, AA&O x 4 Skin: warm, dry, intact, no rashes or lesions HEENT: NC/AT, PERRL, EOMI, anicteric sclera, conjunctiva without injection, external ear normal to inspection and nontender, nares patent, moist mucus membranes, dentition intact, no oropharyngeal lesions, neck supple, trachea midline, no LAD, no thyromegaly, no JVD Heart: +S1/S2, regular, no m/r/g Lungs: equal air entry bilaterally, diminished in bases with scattered rales bibasilar Abd: +BS, soft, NT/ND, no masses/organomegaly/ascites Ext: warm, 2+ pulses in UE/LE bilaterally, no clubbing/cyanosis or 2+ pitting edema of bilateral LE Neuro: nonfocal, patient AA&O x 4, speech intact, no facial droop, moving all extremities on command with equal strength 5/5 Results & Data Results & Data Vital Signs (Past 12 Hours) Vital Signs Temp Pulse Pulse Resp BP BP Pulse Ox 09/19/24 22:32 97 H 20 171/128 H 96 09/19/24 22:02 155/99 H 09/19/24 21:51 105 H 24 92 09/19/24 21:48 115 H 26 H 93 09/19/24 21:30 112 H 22 96 09/19/24 21:29 170/126 H 09/19/24 21:29 106 H 22 170/126 H 97 09/19/24 21:27 94 H 23 99 09/19/24 20:30 100 H 22 96 09/19/24 20:03 99 H 20 97 09/19/24 20:03 97 09/19/24 20:00 93 H 25 H 96 09/19/24 19:48 93 H 24 167/106 H 96 09/19/24 18:25 36.6 C 103 H 18 166/120 H 95 O2 Del Method O2 Flow Rate 09/19/24 22:32 Nasal Cannula 4 09/19/24 22:02 09/19/24 21:51 09/19/24 21:48 09/19/24 21:30 09/19/24 21:29 09/19/24 21:29 Nasal Cannula 4 09/19/24 21:27 09/19/24 20:30 09/19/24 20:03 Room Air 09/19/24 20:03 Room Air 9 09/19/24 20:00 09/19/24 19:48 09/19/24 18:25 Nasal Cannula 3 Laboratory Results Laboratory Results WBC 8.10 K/ul (4.8-10.8) 09/19/24 19:04 RBC 4.97 M/uL (4.70-6.10) 09/19/24 19:04 Hgb 14.7 g/dl (14.0-18.0) 09/19/24 19:04 Hct 42.9 % (42.0-52.0) 09/19/24 19:04 MCV 86.3 fL (80.0-100.0) 09/19/24 19:04 MCH 29.6 pg (25.0-34.0) 09/19/24 19:04 MCHC 34.3 g/dL (32.0-36.0) 09/19/24 19:04 RDW Std Deviation 44.8 fL (36.4-46.3) 09/19/24 19:04 RDW Coeff of Zoltan 14.2 % (11.5-14.5) 09/19/24 19:04 Plt Count 124 K/uL (130-400) L 09/19/24 19:04 MPV 9.8 fL (9.4-12.4) 09/19/24 19:04 Immature Gran % (Auto) 0.5 % 09/19/24 19:04 Neut % (Auto) 64.1 % 09/19/24 19:04 Lymph % (Auto) 26.9 % 09/19/24 19:04 Bailey % (Auto) 6.8 % 09/19/24 19:04 Eos % (Auto) 1.5 % 09/19/24 19:04 Baso % (Auto) 0.2 % 09/19/24 19:04 Neut # (Auto) 5.19 K/uL (1.40-6.50) 09/19/24 19:04 Lymph # (Auto) 2.18 K/uL (1.20-3.40) 09/19/24 19:04 Bailey # (Auto) 0.55 K/uL (0.11-0.59) 09/19/24 19:04 Eos # (Auto) 0.12 K/uL (0.00-0.50) 09/19/24 19:04 Baso # (Auto) 0.02 K/uL (0.00-0.20) 09/19/24 19:04 Immature Gran # (Auto) 0.04 K/uL (0.01-0.20) 09/19/24 19:04 PT 10.8 Seconds (9.0-12.0) 09/19/24 19:04 INR 1.0 (0.9-1.1) 09/19/24 19:04 APTT 30 Seconds (21-31) 09/19/24 19:04 PTT Ratio 1.1 09/19/24 19:04 VBG pH 7.43 (7.36-7.41) H 09/19/24 20:37 VBG pCO2 40 mmHg (38-50) 09/19/24 20:37 VBG pO2 62 mmHg 09/19/24 20:37 VBG HCO3 27 mmol/L 09/19/24 20:37 VBG O2 Saturation 92.5 % 09/19/24 20:37 VBG Base Excess 2.0 mEq/L 09/19/24 20:37 Sodium 138 mmol/L (136-145) 09/19/24 19:04 Potassium 4.0 mmol/L (3.5-5.1) 09/19/24 19:04 Chloride 107 mmol/L (98-107) 09/19/24 19:04 Carbon Dioxide 23 mmol/L (21-32) 09/19/24 19:04 Anion Gap 8 (3-11) 09/19/24 19:04 BUN 12 mg/dl (6-23) 09/19/24 19:04 Creatinine 0.90 mg/dl (0.6-1.4) 09/19/24 19:04 Est Cr Clr Drug Dosing 145.7 ml/min 09/19/24 19:04 eGFR 106.01 09/19/24 19:04 BUN/Creatinine Ratio 13.3 (10-20) 09/19/24 19:04 Glucose 204 mg/dl (70-99(Fasting)) H 09/19/24 19:04 POC Glucose 144 mg/dl (70-99) H 09/20/24 00:28 Calcium 8.8 mg/dl (8.6-10.3) 09/19/24 19:04 Magnesium 1.4 mg/dl (1.7-2.4) L 09/19/24 19:04 Total Bilirubin 0.6 mg/dl (0.2-1.0) 09/19/24 19:04 AST 17 U/L (13-39) 09/19/24 19:04 ALT 14 U/L (7-52) 09/19/24 19:04 Alkaline Phosphatase 80 U/L (34-104) 09/19/24 19:04 Troponin I High Sens 27.1 pg/ml (0-20) H 09/19/24 21:10 B-Natriuretic Peptide 678 pg/ml (0-100) H 09/19/24 19:04 Total Protein 6.9 gm/dl (6.0-8.3) 09/19/24 19:04 Albumin 3.4 gm/dl (3.4-5.0) 09/19/24 19:04 Globulin 3.5 gm/dl (2.5-4.0) 09/19/24 19:04 Albumin/Globulin Ratio 1.0 (0.9-2) 09/19/24 19:04 Impressions Chest X-Ray 09/19/24 18:31 EXAM: Portable AP chest radiograph TECHNIQUE: AP portable radiograph of the chest was obtained. INDICATION: Chest pain Comparison: Chest radiograph August 25, 2024 FINDINGS: LINES and TUBES: Left-sided cardiac ICD with lead projecting over the right ventricle of the heart. CARDIOVASCULAR: Cardiac silhouette is stable enlarged in size. LUNGS/PLEURA: Moderate interstitial pulmonary edema, somewhat worsened from previous. No focal consolidation identified. Small pleural fluids are likely. No discernible pneumothorax. OSSEOUS/OTHER: No displaced acute osseous process identified. IMPRESSION: Congestive changes of the cardiovascular system have mildly worsened from previous radiograph dated August 25, 2024. Electronically signed by Arnulfo Gautam 09-19-2024 7:46 PM Venous Doppler Study 09/19/24 20:13 Exam(s): US VENOUS BILATERAL LOWER EXTREMITIES EXAM: US Duplex Bilateral Lower Extremities Veins CLINICAL HISTORY: Swelling. TECHNIQUE: Real-time duplex ultrasound scan of the bilateral lower extremity veins integrating B-mode two-dimensional vascular structure, Doppler spectral analysis, color flow Doppler imaging and compression. COMPARISON: No relevant prior studies available. FINDINGS: Right deep veins: Unremarkable. No Deep vein thrombosis in the right common femoral, femoral, proximal deep femoral or popliteal veins. The veins demonstrate normal color flow, are normally compressible, with normal phasic flow and/or augmentation response. Right superficial veins: Unremarkable. No thrombus in the visualized right great saphenous vein. Left deep veins: Unremarkable. No Deep vein thrombosis in the left common femoral, femoral, proximal deep femoral or popliteal veins. The veins demonstrate normal color flow, are normally compressible, with normal phasic flow and/or augmentation response. Left superficial veins: Unremarkable. No thrombus in the visualized left great saphenous vein. Soft tissues: No acute findings. No popliteal cyst. IMPRESSION: No deep vein thrombosis of either lower extremity. Electronically signed by: Charlotte Chaidez MD 09/19/24 23:44 PM Code Status & VTE Plan VTE Prophylaxis Plan VTE Prophylaxis will be ordered: Yes PG Care Time/CCT Total # of Minutes Spent Total Time Spent with Patient: Total time spent is greater than 50% in coordination of care (as documented) at patient's floor/unit and/or counseling patient: Coding Level of Care Code 64483 INT INP/OBS CARE 3/75MIN Diagnoses CHF (congestive heart failure) I50.9 Heart failure chronicity: acute on chronic Heart failure type: unspecified SOB (shortness of breath) R06.02 Elevated troponin R79.89 Hypomagnesemia E83.42 Chronic obstructive pulmonary disease, unspecified COPD type J44.9 Obstructive sleep apnea G47.33 Hypertension I10 Hypertension type: unspecified Type 2 diabetes mellitus with obesity E11.69; E66.9 (1) CHF (congestive heart failure) Heart failure chronicity: acute on chronic Heart failure type: unspecified Qualified Code(s): I50.9 - Heart failure, unspecified (7) Hypertension Hypertension type: unspecified Qualified Code(s): I10 - Essential (primary) hypertension
[2024-09-19] MEDS ORDERED: POLYETHYLENE (MIRALAX) 17 GM PACK PO PRN (23:27)
[2024-09-19] MEDS ORDERED: BUDESONIDE 0.25 MG/2 ML VIAL (PULMICORT) INH PRN (23:27)
[2024-09-19] MEDS ORDERED: DOCUSATE SODIUM 100 MG CAP PO PRN (23:27)
[2024-09-19] MEDS ORDERED: GLUCOSE 40% GEL 15 GM TUBE PO PRN (23:27)
[2024-09-19] MEDS ORDERED: LIDOCAINE 5% 1 PATCH TD PRN (23:27)
[2024-09-19] MEDS ORDERED: GLUCOSE 10 TAB/TUBE PO PRN (23:27)
[2024-09-19] MEDS ORDERED: CARBOHYDRATES FOR HYPOGLYCEMIA PO PRN (23:27)
[2024-09-19] MEDS ORDERED: GLUCAGON FOR INJ 1 MG VIAL SQ PRN (23:27)
[2024-09-19] MEDS ORDERED: DEXTROSE 50% 50 ML SYRINGE IV PRN (23:27)
--- NOTE | 2024-09-19 23:45 | Ultrasound Report ---
Exam(s): US VENOUS BILATERAL LOWER EXTREMITIES EXAM: US Duplex Bilateral Lower Extremities Veins CLINICAL HISTORY: Swelling. TECHNIQUE: Real-time duplex ultrasound scan of the bilateral lower extremity veins integrating B-mode two-dimensional vascular structure, Doppler spectral analysis, color flow Doppler imaging and compression. COMPARISON: No relevant prior studies available. FINDINGS: Right deep veins: Unremarkable. No Deep vein thrombosis in the right common femoral, femoral, proximal deep femoral or popliteal veins. The veins demonstrate normal color flow, are normally compressible, with normal phasic flow and/or augmentation response. Right superficial veins: Unremarkable. No thrombus in the visualized right great saphenous vein. Left deep veins: Unremarkable. No Deep vein thrombosis in the left common femoral, femoral, proximal deep femoral or popliteal veins. The veins demonstrate normal color flow, are normally compressible, with normal phasic flow and/or augmentation response. Left superficial veins: Unremarkable. No thrombus in the visualized left great saphenous vein. Soft tissues: No acute findings. No popliteal cyst. IMPRESSION: No deep vein thrombosis of either lower extremity. Electronically signed by: Charlotte Chaidez MD 09/19/24 23:44 PM
[2024-09-20] MEDS: ENOXAPARIN INJ 40 MG/0.4 ML SYR SQ STA (00:26)
[2024-09-20] MEDS: MAGNESIUM SULFATE / D5W 1 GM/100 ML BAG IV ONE (00:26)
[2024-09-20] MEDS: INSULIN ASPART PER UNIT CHARGE SC SCH (00:34)
[2024-09-20] MEDS: LANTUS PER UNIT CHARGE SQ SCH (00:46)
[2024-09-20 06:30] LABS: Anion Gap 8.0 (3-11); Blood Urea Nitrogen 16.0 mg/dl (6-23); Calcium 8.9 mg/dl (8.6-10.3); Carbon Dioxide 27.0 mmol/L (21-32); Chloride 104.0 mmol/L (98-107); Creatinine Clr Calc Pharmacy 147.4 ml/min; Glucose 150.0 mg/dl (70-99(Fasting)); Magnesium 1.4 mg/dl (1.7-2.4); Potassium 3.7 mmol/L (3.5-5.1); Sodium 139.0 mmol/L (136-145)
[2024-09-20] MEDS: ISOSORBIDE MONO EXTENDED REL 60 MG TABCR PO SCH (08:43)
[2024-09-20] MEDS: METOPROLOL SUCC 50MG EXT REL TAB PO SCH (08:44)
[2024-09-20] MEDS: SPIRONOLACTONE 25 MG TAB PO SCH (08:44)
[2024-09-20] MEDS: ATORVASTATIN 10 MG TAB PO SCH (08:45)
[2024-09-20] MEDS: METOPROLOL SUCC 25MG EXT REL TAB PO SCH (08:45)
[2024-09-20] MEDS: MAGNESIUM OXIDE 400 MG TAB PO SCH (08:45)
[2024-09-20] MEDS: VALSARTAN/SACUBITRIL 103/97MG TAB PO SCH (08:46)
[2024-09-20] MEDS: POTASSIUM CHLORIDE CRTAB 20 MEQ TABCR PO SCH (08:49)
[2024-09-20] MEDS: ASPIRIN 81 MG ECTAB PO SCH (08:49)
[2024-09-20] MEDS: FLUTICASONE/VILANTEROL 100/25MCG 14 PUFFS/INHALER INH SCH (08:49)
[2024-09-20] MEDS: FUROSEMIDE 40 MG/4 ML VIAL IV SCH (08:50)
[2024-09-20] MEDS ORDERED: MAGNESIUM OXIDE 400 MG TAB PO SCH (09:00)
[2024-09-20] MEDS: MAGNESIUM SULFATE / D5W 1 GM/100 ML BAG IV SCH (09:01)
--- NOTE | 2024-09-20 10:45 | Hospitalist Progress Note ---
Date of Service September 20, 2024 Assessment & Plan (1) CHF (congestive heart failure): Plan: Acute on chronic systolic with known ejection fraction 15 to 20%. Continue parenteral Lasix therapy and metolazone. Monitor intake and output. Serial chest x-ray (2) SOB (shortness of breath): Plan: Due to exacerbation of CHF. He is currently requiring 5 L of oxygen per nasal cannula. (3) Elevated troponin: Plan: Mild. Not trending. No chest pain. No acuity changes. No evidence of acute coronary syndrome (4) Hypomagnesemia: Plan: Unfortunately, he is refusing parenteral magnesium stating that it busch. Oral magnesium supplementation has been increased to twice daily dosing. Serial labs (5) COPD (chronic obstructive pulmonary disease): Plan: Stable. Continue current medical management (6) Obstructive sleep apnea: Plan: Stable. Continue current medical management (7) Hypertension: Plan: Stable. Continue current medical management (8) Type 2 diabetes mellitus with obesity: Plan: ADA diet. Sliding scale coverage. Basal insulin therapy Plan Anticipate eventual discharge back to his home within the next 2 to 3 days Admission and Anticipated Discharge Date Admission Date: September 19, 2024 Subjective Alert and oriented. No distress. He refused his parenteral magnesium today stating that it busch. Oral magnesium uptitrated to twice daily dosing. Potassium has dropped to 3.7 with diuresis. Will start oral potassium supplementation and monitor daily labs. Will repeat chest x-ray again tomorrow, September 21. He remains on intravenous Lasix, 80 mg intravenously twice daily along with his metolazone. Review of Systems 2 Review of Systems: Constitutionalno fever or chills ENTno blurred vision, no double vision, no epistaxis, no sore throat Respiratoryno cough, no wheezing, no shortness of breath while at rest. He does have dyspnea on exertion Cardiacno palpitations, no chest pain, no syncope Katlyn nausea, vomiting, diarrhea, melena, hematochezia GUno urinary retention, no urinary incontinence, no dysuria, no hematuria Musculoskeletalno joint pain, no muscle tenderness Skinno bruising, no rashes, no pruritus Neurono isolated weakness, no paresthesia, no weakness Psychno depression, no anxiety Physical Exam 2 Physical Exam: General-alert and oriented x3, no fever, no chills HEENT-head atraumatic and normocephalic, pupils equal and reactive to light, extraocular muscles intact Neck-no lymphadenopathy or thyromegaly, trachea midline Chest-bibasilar inspiratory rales. No wheezing. No rhonchi Cardiac-regular rate and rhythm, normal S1 and S2 Abdomen-normal bowel sounds, no hepatosplenomegaly Extremities-mild bilateral lower extremity edema below the knees. No cyanosis Neuro-cranial nerves II through XII intact, motor and sensory function within normal limits, strength symmetrical, no focal deficits Psych-normal affect, normal mood Results & Data Results & Data Vital Signs (Past 12 Hours) Vital Signs Temp Pulse Pulse Resp BP Pulse Ox O2 Del Method 09/20/24 08:59 83 24 156/113 H 96 Nasal Cannula 09/20/24 08:41 91 H 09/20/24 04:00 70 20 179/117 H 96 Nasal Cannula 09/20/24 03:00 68 22 98 Nasal Cannula 09/20/24 00:29 36.8 C 99 H 26 H 160/107 H 96 Nasal Cannula 09/19/24 23:42 Nasal Cannula 09/19/24 23:42 36.6 C 97 H 20 171/128 H 97 Nasal Cannula O2 Flow Rate 09/20/24 08:59 5 09/20/24 08:41 09/20/24 04:00 5 09/20/24 03:00 5 09/20/24 00:29 5 09/19/24 23:42 4 09/19/24 23:42 4 Laboratory Results 09/19/24 19:04 09/20/24 04:45 PG Care Time/CCT Total # of Minutes Spent Total Time Spent with Patient: Total time spent is greater than 50% in coordination of care (as documented) at patient's floor/unit and/or counseling patient: Coding Level of Care Code 32886 SUB INP/OBS CARE 3/50MIN Diagnoses CHF (congestive heart failure) I50.9 Heart failure chronicity: acute on chronic Heart failure type: unspecified SOB (shortness of breath) R06.02 Elevated troponin R79.89 Hypomagnesemia E83.42 Chronic obstructive pulmonary disease, unspecified COPD type J44.9 Obstructive sleep apnea G47.33 Hypertension I10 Hypertension type: unspecified Type 2 diabetes mellitus with obesity E11.69; E66.9 (1) CHF (congestive heart failure) Heart failure chronicity: acute on chronic Heart failure type: unspecified Qualified Code(s): I50.9 - Heart failure, unspecified (7) Hypertension Hypertension type: unspecified Qualified Code(s): I10 - Essential (primary) hypertension
--- NOTE | 2024-09-20 12:04 | Electrocardiogram Report ---
Test Reason : Blood Pressure : */* mmHG Vent. Rate : 98 BPM Atrial Rate : 98 BPM P-R Int : 170 ms QRS Dur : 114 ms QT Int : 382 ms P-R-T Axes : 40 -44 106 degrees QTcB Int : 487 ms Normal sinus rhythm Possible Left atrial enlargement Left axis deviation Left anterior fascicular block Incomplete right bundle branch block Minimal voltage criteria for LVH, may be normal variant ( Mitch product ) Septal infarct (cited on or before 24-Aug-2024) T wave abnormality, consider lateral ischemia Abnormal ECG When compared with ECG of 24-Aug-2024 16:56, Serial changes of Septal infarct Present Confirmed by Carol Montoya ([id number]) on 09/20/2024 12:03:57 PM Referred By: Confirmed By: Carol Montoya
[2024-09-20] MEDS: ALBUTEROL 0.083% NEBU SOLN 3 ML VIAL INH PRN (16:07)
[2024-09-20] MEDS: ENOXAPARIN INJ 40 MG/0.4 ML SYR SQ SCH (20:02)
[2024-09-20] MEDS: REMOVE LIDODERM PATCH SCH (20:14)
[2024-09-20] MEDS: POTASSIUM CHLORIDE 20 MEQ/15 ML UDC PO SCH (20:34)
[2024-09-20] MEDS: COUGH DROP (SUGAR FREE) LOZ 24 LOZ/1 BOX BUCCAL PRN (20:36)
[2024-09-20] MEDS: MELATONIN 3 MG TAB PO PRN (20:37)
[2024-09-21 07:32] VITALS: O2SAT 96
[2024-09-21 07:36] LABS: Anion Gap 12.0 (3-11); Calcium 8.9 mg/dl (8.6-10.3); Carbon Dioxide 26.0 mmol/L (21-32); Chloride 96.0 mmol/L (98-107); Magnesium 1.7 mg/dl (1.7-2.4); Potassium 4.2 mmol/L (3.5-5.1); Sodium 134.0 mmol/L (136-145)
[2024-09-21 07:44] LABS: Blood Urea Nitrogen 38.0 mg/dl (6-23); Creatinine Clr Calc Pharmacy 68.6 ml/min; Glucose 224.0 mg/dl (70-99(Fasting))
--- NOTE | 2024-09-21 08:56 | XRay Report ---
EXAM: XR chest 1V portable CLINICAL HISTORY: CHF. TECHNIQUE: An X-ray image of the chest is obtained in AP portable projection. COMPARISON: 09/19/2024. FINDINGS: Pulmonary Parenchyma: No evidence of consolidation, collapse, or focal opacities. No pulmonary nodules are identified. No evidence of pleural effusion or pleural thickening. Heart and Mediastinum: Cardiomegaly was noted, left cardiac pacemaker was noted. No mediastinal widening or masses. No hilar or mediastinal lymphadenopathy. Bony Thorax: Bony thorax appears intact without fractures or deformities. Soft Tissues: Soft tissues overlying the chest wall are unremarkable. IMPRESSION: 1. No gross interval change in comparison with 09/19/2024. 2. Stable with no consolidation, pneumothorax, or pleural effusion. 3. Cardiomegaly was noted, left cardiac pacemaker was noted. Electronically signed by Shiraz García 09-21-2024 08:55 AM
[2024-09-21 10:59] VITALS: BP 96/61; PULSE 82; RESP 14; TEMP 97.9
--- NOTE | 2024-09-21 11:07 | Discharge Summary ---
Discharge Summary Date of Service September 21, 2024 Principal Dx & Hospital Course #1 = Principal Diagnosis (1) CHF (congestive heart failure): Acute on chronic systolic with known ejection fraction 15 to 20%. Treated while hospitalized with parenteral Lasix therapy and metolazone. He had a 5 L brisk diuresis. Chest x-ray done today, September 21, reveals resolution of CHF. (2) SOB (shortness of breath): Due to exacerbation of CHF. Present on admission. Now resolved (3) Elevated troponin: Mild. Not trending. No chest pain. No acuity changes. No evidence of acute coronary syndrome (4) Hypomagnesemia: Corrected with replacement therapy. (5) COPD (chronic obstructive pulmonary disease): Stable. Continue current medical management (6) Obstructive sleep apnea: Stable. Continue current medical management (7) Hypertension: Stable. Continue current medical management (8) Type 2 diabetes mellitus with obesity: ADA diet. Sliding scale coverage. Basal insulin therapy while hospitalized. He will resume his usual diabetic management at discharge (9) Acute on chronic respiratory failure with hypoxia: He is now down to his baseline oxygen usage with resolution of CHF Plan Home today, September 21 Admission HPI Per Admitting Provider Alok Huff is a 48yo male with history of NICM (EF of 15-20%, severely dila sania LV with severe global hypokinesis of the LV with septal dyskinesis per echo 08/23/2024), paroxysmal VT with single chamber ICD in place, chronic hypoxic respiratory failure on home O2, DM and HTN presenting with shortness of breath and weight gain. Patient reports compliance with his home medications as well as salt-restricted diet. He reports gaining weight as well as worsening bilateral LE edema R>L and SOB. He states he is having difficulty catching his breath. No chest pain or palpitations. No fever. In the ER he is hypertensive, tachycardic and tachypneic. Adequate oxygenation on 5L NC - patient typically uses 3-4L at home he reports ER Course: Lasix 80mg IV Mg x 1gm Lantus 12u Patient refused additional magnesium, Lovenox injection Discharge Exam General-alert and oriented x3, no fever, no chills HEENT-head atraumatic and normocephalic, pupils equal and reactive to light, extraocular muscles intact Neck-no lymphadenopathy or thyromegaly, trachea midline Chest-bibasilar inspiratory rales have now resolved. No wheezing. No rhonchi Cardiac-regular rate and rhythm, normal S1 and S2 Abdomen-normal bowel sounds, no hepatosplenomegaly Extremities-mild bilateral lower extremity edema below the knees. No cyanosis Neuro-cranial nerves II through XII intact, motor and sensory function within normal limits, strength symmetrical, no focal deficits Psych-normal affect, normal mood Discharge Plan Discharge Items Patient Disposition: Home - Self-Care Reason For Visit: CHF EXACERBATION Discharge Diagnosis: Acute on chronic systolic congestive heart failure, acute on chronic respiratory failure, elevated troponin without acute coronary syndrome, hypomagnesemia Condition on Discharge: Good Activity: Resume your previous activity Non-emergency contact: Primary Care Provider Call non-emergency contact if: your symptoms worsen Follow-up/Referrals: Gosia Martinez MD [Primary Care Provider] - Diet: Carb Consistent or DM2 and Heart Healthy Addtl Attending Provider Instructions: All medications remain the same Pending Studies at Discharge: No Stand-Alone Forms: [facility], Smoking Cessation Medications and DC Order Prescriptions: Continued (DME) FreeStyle Karla 3 Elaine Misc See Rx Instructions .Route Qty: 1 1RF Rx Instructions: moniotr blood sugar (DME) FreeStyle Karla 3 Elaine Misc See Rx Instructions .ROUTE .MEDSUPPLY Qty: 1 0RF Rx Instructions: use with karla 3 + sensor tirzepatide 7.5 mg/0.5 mL pen injector 7.5 mg subcut Q7D 30 Days Qty: 2 3RF Rx Instructions: [place] spironolactone 50 mg tablet 50 mg PO BID Qty: 60 1RF metoprolol succinate 25 mg tablet extended release 24 hr 25 mg PO BID Qty: 60 0RF Rx Instructions: TOTAL DOSE 125 MG--TAKES WITH 100 MG TAB. (DME) Portable Oxygen Misc See Rx Instructions .Route Qty: 1 0RF Rx Instructions: Portable oxygen concentrator atorvastatin 10 mg tablet 10 mg PO DAILY Qty: 90 3RF (DME) pen needle, diabetic [Comfort EZ Pen [place]] 31 gauge x 5/16" needle See Rx Instructions .Route Qty: 100 3RF Rx Instructions: use when administering insuling daily budesonide 0.25 mg/2 mL suspension for nebulization 0.25 mg inhalation DAILY PRN (Reason: Shortness Of Breath) budesonide-formoterol [Symbicort] 160-4.5 mcg/actuation HFA aerosol inhaler 2 inh inhalation BID Qty: 3 3RF Rx Instructions: 2 puffs twice per day. Rinse mouth after each use (DME) OneTouch Verio test strips Strip See Rx Instructions miscellaneous .MEDSUPPLY Qty: 100 5RF Rx Instructions: check 3x a day (DME) lancets [OneTouch Delica Plus Lancet] 30 gauge misc See Rx Instructions .ROUTE .MEDSUPPLY Qty: 100 5RF Rx Instructions: use new lancet 3x a day (DME) blood-glucose meter [OneTouch Verio Flex meter] Misc See Rx Instructions .ROUTE .MEDSUPPLY Qty: 1 0RF Rx Instructions: As directed (DME) FreeStyle Karla 3 Plus Sensor Device See Rx Instructions .ROUTE .MEDSUPPLY Qty: 2 11RF Rx Instructions: change sensor every 15 days (DME) Oxygen Home Liters Per Minute See Rx Instructions .MEDSUPPLY Qty: 1 0RF Rx Instructions: Home Oxygen concentrator with portability, test for conserving device. 2-4LMP via n/c at rest/sleep and 2-4 LPM via n/c with exertion; VÍCTOR 99. nystatin 100,000 unit/gram powder 1 applic topical BID PRN (Reason: Skin Irritation) Qty: 60 0RF insulin glargine 100 unit/mL (3 mL) insulin pen 50 unit subcut BID isosorbide mononitrate 60 mg tablet extended release 24 hr 60 mg PO DAILY Qty: 90 1RF metoprolol succinate 100 mg tablet extended release 24 hr 100 mg PO BID Qty: 180 1RF Rx Instructions: TOTAL DOSE 125 MG--TAKES WITH 25 MG TAB. dapagliflozin propanediol [Farxiga] 10 mg tablet 10 mg PO DAILY Qty: 90 1RF Entresto 97-103 mg tablet 1 tab PO BID Qty: 180 1RF metolazone 2.5 mg tablet 2.5 mg PO DAILY Qty: 3 0RF triamcinolone acetonide 0.025 % cream 1 applic topical TID PRN (Reason: rash) Qty: 454 0RF nitroglycerin [Nitrostat] 0.4 mg tablet, sublingual 0.4 mg sublingual UD PRN (Reason: Chest Pain) aspirin [Neisha Low Dose Aspirin] 81 mg tablet,delayed release (DR/EC) 81 mg PO QAM albuterol sulfate 2.5 mg /3 mL (0.083 %) solution for nebulization 2.5 mg inhalation Q6H PRN (Reason: Shortness Of Breath Or Wheezing) Rx Instructions: Use every 6 hours as needed with nebulizer albuterol sulfate 90 mcg/actuation HFA aerosol inhaler 1 inh inhalation QID PRN (Reason: Shortness Of Breath Or Wheezing) magnesium oxide 400 mg (241.3 mg magnesium) tablet 400 mg PO QAM lidocaine 5 % adhesive patch,medicated 1 patch topical DAILY PRN (Reason: Pain) trolamine salicylate [Myoflex] 10 % Cream 1 applic EXT BID PRN (Reason: left sided neck pain) Qty: 35.4 0RF furosemide 80 mg tablet 80 mg PO BID Qty: 60 0RF Discharge Orders: Discharge Order- CHF (Routine); Ordered 09/21/24 Ordered By: Wilfredo Pascal Admission Data Admit Date/Time: 09/19/24 23:16 Attending Provider: Wilfredo Pascal Admit Provider: Ciarra Burr Primary Care Provider: Goisa Martinez Other Providers: Ciarra Burr Hospital Stay Data Consultations 09/19/24 22:31 ED Decision to Admit Stat Diagnostic Imagining Performed 09/19/24 20:13 US venous doppler LE BI Stat Pending Results Patient Have Any Pending Studies at Discharge: No Discharge Instructions Given to Patient (Per Discharging Provider) All medications remain the same Total Time Total Time Spent Total Time Spent (In Minutes): 50-minute Coding Level of Care Code 05395 INP/OBS DISCH >30 MIN Diagnoses CHF (congestive heart failure) I50.9 Heart failure chronicity: acute on chronic Heart failure type: unspecified SOB (shortness of breath) R06.02 Elevated troponin R79.89 Hypomagnesemia E83.42 Chronic obstructive pulmonary disease, unspecified COPD type J44.9 Obstructive sleep apnea G47.33 Hypertension I10 Hypertension type: unspecified Type 2 diabetes mellitus with obesity E11.69; E66.9 Acute on chronic respiratory failure with hypoxia J96.21
[2024-09-21] MEDS ORDERED: FUROSEMIDE 80 MG TAB PO SCH (17:00)
== END 2024-09-21 12:41 | disposition home or self-care (01) | DRG 291 ==
LOC: ED 18:25 → SUATTDRO 23:16 → INTOOBSV 23:16 → EDINP 23:16 → 2W 23:27

== ENCOUNTER 2024-10-07 14:46 | Inpatient (IN) ==
[2024-10-07] MEDS: NITROGLYCERIN SL 0.4 MG/TAB TAB SL STA (15:04)
[2024-10-07] MEDS: NITROGLYCERIN 2% OINTMENT 30GM TUBE EXT ONE (15:05)
--- NOTE | 2024-10-07 15:05 | Emergency Department Note ---
Impression & Plan Acute exacerbation of CHF (congestive heart failure), Acute on chronic respiratory failure with hypoxia, Hypertensive emergency, Thrombocytopenia ED Provider Note NAME: HARDIK LOVE AGE: 48 SEX: M : 1975 ARRIVES VIA: Ambulance INFORMANT: Patient, ED PROVIDER(S): Mikhail Dodd MD CHIEF COMPLAINT: Shortness of breath, leg swelling MEDICAL DECISION MAKING: Patient presents with above. Quick review of the patient's history does show significant CHF as well as COPD is on chronic oxygen therapy. The patient has noticed increasing leg swelling. Patient not significantly dyspneic on exam but significantly hypertensive and tachycardic. The patient was ordered sublingual nitro as well as Nitropaste [id number] BMP and as long as potassium is then reasonable level will order IV Lasix. Patient's blood work shows a normal white count H&H and mild thrombocytopenia at 125. The patient's kidney function is unremarkable. Initial troponin is 20.5. No chest pain. The patient does have slight hypomagnesemia at 1.6. BNP of 905. Given the patient's more complicated history I did speak with the on-call knee bolter Dr. Yobany Pitt who recommended nitro drip which was ordered. Patient currently stable. Subsequently did speak with Dr. Brown with the intensive care unit the patient was subsequently admitted to intensive care after conferring with inpatient medicine service Dr. Mendez. Critical Care: I have personally spent 79 minutes of critical care time in direct management of this patient. This includes bedside care, interpretation of diagnostic studies, and testing, discussion with consultants, patient, and family members, and other require inpatient management activities. This 79 minutes is in excess of all separately billable procedures. Discussion w/ other healthcare providers: Dr. Mendez inpatient medicine service Dr. Sosa cardiology Dr. 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 Pascal. Known history of CHF with an EF of 15 to 20%. Treated with Lasix and metolazone. Patient with also COPD MARIELENA hypertension. Review also shows the patient does have a history of severely dilated LV with severe global hypokinesis septal dyskinesis per echo in August paroxysmal VT with single-chamber ICD in place. Chronic hypoxic respiratory failure on home O2. Salt restricted diet. Patient per this note also has noted worsening bilateral lower extremity edema but right greater than left. -If heart failure primary care visit from today patient reported send 15 pound weight gain in 11 days. Differential diagnosis: Reactive airway disease, pneumonia, pneumothorax, COPD, CHF, ACS, pulmonary embolism, musculoskeletal, GERD as well as other pathologies were considered. Diagnostics, as interpreted by me: ECG: Sinus tachycardia fusion complexes, rate of 119, borderline QTc with left axis deviation T wave versions in the high lateral leads no obvious STEMI. Cardiac monitoring: An order was placed for continuous cardiac monitoring. The monitor shows a rate of 102 with tachycardic rhythm. Patient was placed on pulse oximetry Medical decision rules: None Imaging studies: I informally interpreted the patient's chest x-ray shows concern for pulmonary edema with formal report to follow. HPI: Patient presents due to concern for worsening shortness of breath. Reviewed the notes does show that the patient was seen in primary care today. Known history of chronic oxygen use chronic hypoxia COPD and CHF. The patient has noticed increasing leg swelling per outpatient notes shows that patient was put on about 15 pounds in the last 11 days. Patient is noticed lower extremity swelling right greater than left but that is chronic. Patient does follow-up with Shyanne Stern with the heart failure service. The patient reports that he is compliant with his medications and did take his morning meds. He denies any chest pains. He does feel more short of breath he has orthopnea and is unable to lay flat. Shortness of breath at rest. PAST MEDICAL HISTORY: See Below PAST SURGICAL HISTORY: See Below SOCIAL HISTORY: See Below HOME MEDICATIONS: See Below ALLERGIES: See Below VITALS: See Below PHYSICAL EXAMINATION: GENERAL: NAD, non-toxic. EYE EXAM: Normal conjunctiva. PERRL, no anisocoria and EOM's grossly intact w/o pain. OROPHARYNX: Moist mucus membranes, grossly normal dentition. NECK: Trachea midline, no stridor. JVD noted. LUNGS: C diminished breath sounds bilateral bases with crackles normal chest wall mechanics. HEART: NSR, no MRG. ABDOMEN: Abdomen soft, non-tender, no masses, no rebound or guarding. BACK: No CVA TTP. SKIN: No rashes and no bruising. UPPER EXTREMITIES: Upper extremities are grossly normal. LOWER EXTREMITIES: Grossly normal, bilateral lower extremity edema right greater than left 2-3+ pitting. NEURO EXAM: Awake and alert, follows commands, no obvious facial asymmetry, normal speech, moves all 4 extremities. Past Med/Surg History Problem List (Updated 10/07/24 @ 23:28 by Mikhail Dodd MD) Thrombocytopenia (Acute) Hypertensive emergency (Acute) NYHA class 3 acute on chronic systolic heart failure Uncontrolled hypertension Acute on chronic respiratory failure with hypoxia (Acute) Hypomagnesemia (Acute) CHF (congestive heart failure) (Acute) Elevated troponin (Acute) Chest pain (Acute) Hypokalemia Acute on chronic systolic CHF (congestive heart failure) (Acute) Acute kidney failure Left knee pain Elevated brain natriuretic peptide (BNP) level (Acute) Hypomagnesemia (Acute) Acute exacerbation of CHF (congestive heart failure) (Acute) Venous stasis dermatitis Non-sustained ventricular tachycardia (Acute) Pulmonary edema (Acute) Lightheadedness (Acute) Dyspnea (Acute) Acute on chronic heart failure with reduced ejection fraction (HFrEF, <= 40%) Periapical abscess Pulmonary edema (Acute) Hypomagnesemia (Acute) Type 2 diabetes mellitus with peripheral neuropathy Diabetic peripheral neuropathy Non-proliferative diabetic retinopathy, both eyes Uncontrolled diabetes mellitus with hyperglycemia Normocytic anemia Poor intravenous access Chronic anticoagulation Diabetes mellitus type II, uncontrolled (Chronic) Urinary bladder incontinence Hx of local infection of skin and subcutaneous tissue Ambulatory dysfunction (Chronic) Recurrent infection of skin Pulmonary nodule V tach (Acute) Hemoptysis (Acute) Vitamin D deficiency Medical History Hypertension Type 2 diabetes mellitus with microalbuminuria HFrEF (heart failure with reduced ejection fraction) Chronic respiratory failure Chronic respiratory failure with hypoxia Type 2 diabetes mellitus with obesity Morbid obesity with BMI of 50.0-59.9, adult Hypertension Non-sustained ventricular tachycardia Obstructive sleep apnea NICM (nonischemic cardiomyopathy) Pt admitted for elective ICD. Underwent procedure without any complications monitored over night and discharged home. Combined systolic and diastolic heart failure Nonischemic cardiomyopathy, unclear etiology. Difficult to manage. Integrated into heart failure clinic. Frequent admissions for heart failure exacerbations. Echo (05/31) EF=25-30% with mod to severe global hypokinesis, basal kelsi-septal akinetic wall, LVH, RVSP elevated at 30-40mmHg, and mod dilated ascending aorta. Managed medically with ASA + BB + ARB/Neprilysin inhibitor (Entresto) + high dose furosemide (160mg BID) + metolazone (3x weekly). Considering ICD given EF. COPD (chronic obstructive pulmonary disease) Hypomagnesemia Medical non-compliance Intellectual disability Chronic dental pain Small bowel obstruction Housing instability, currently housed, at risk for homelessness Hearing loss of both ears Nonproliferative retinopathy due to secondary diabetes Dilatation of thoracic aorta Iliac aneurysm Vitamin D insufficiency Previously deficient, taking Vit D supplementation Umbilical hernia Lung nodule Fatty liver Surgical History AICD (automatic cardioverter/defibrillator) present H/O oral surgery History of carpal tunnel surgery S/P tonsillectomy History of cholecystectomy Family History Father , age 57 of an [place]. Heart disease Myocardial infarction Mother , age 67 of a ruptured neck vessel Sudden Other Depression Lung disease No pertinent family history Denies family history of Ovarian cancer Prostate cancer Breast cancer Colorectal cancer Social History Smoking Status: Former smoker Tobacco Type: Cigarettes Age Started Using Tobacco: 14; Age Quit Using Tobacco: 18; packs per day: 1; Second Hand Exposure: No; Do You Dip or Chew Tobacco: No; Hx Alcohol Use: No Hx Substance Use: No Preferred Language: Ukrainian Communication Ability: Effective Visual Impairment: No Limitations Hearing Ability: Normal Examination Proctor Required: No Beliefs That Will Affect Care: None marital status: Current Living Situation: Family Current Living Situation Comment: Lives at home with current occupational status: unemployed How many Children do You have: 0 Feels Safe at Home: Yes Childhood Exposure to Second-Hand Smoke: Yes Dental Care, Regularly: Yes Physical Activity Frequency: Does not Exercise Seatbelt Use: never Sunscreen Use: No Assistive Devices: CPAP and Oxygen - Continuous Allergies Allergies Allergy/AdvReac Type Severity Reaction Status Date / Time albuterol Allergy Severe proair Verified 10/07/24 13:22 "trouble taking breaths" ceftriaxone Allergy Severe SHORTNESS Verified 10/07/24 13:22 OF BREATH lidocaine Allergy Severe SHORTNESS Verified 10/07/24 13:22 OF BREATH, diaphoretic, hives mushroom Allergy Severe Anaphylaxis Verified 10/07/24 13:22 procaine Allergy Severe SHORTNESS Verified 10/07/24 13:22 OF BREATH, diaphoretic, hives amoxicillin Allergy Intermediate HIVES/FACIAL Verified 10/07/24 13:22 SWELLING clavulanic acid Allergy Intermediate HIVES/FACIAL Verified 10/07/24 13:22 SWELLING lisinopril Allergy Intermediate HIVES Verified 10/07/24 13:22 shellfish derived Allergy Unknown Unknown Verified 10/07/24 13:22 acetaminophen AdvReac Mild NAUSEA Verified 10/07/24 13:22 Fish Containing Products AdvReac Unknown Unknown Verified 10/07/24 13:22 Home Meds Home Medications Medication Instructions Recorded Confirmed nitroglycerin 0.4 mg sublingual 0.4 mg sublingual UD PRN Chest Pain 04/24/19 10/07/24 tablet (Nitrostat) aspirin 81 mg tablet,delayed 81 mg PO QAM 06/16/21 10/07/24 release (Neisha Low Dose Aspirin) albuterol sulfate 2.5 mg/3 mL 2.5 mg inhalation Q6H PRN 12/02/21 10/07/24 (0.083 %) solution for nebulization Shortness Of Breath Or Wheezing budesonide 0.25 mg/2 mL suspension 0.25 mg inhalation DAILY PRN 09/15/22 10/07/24 for nebulization Shortness Of Breath albuterol sulfate 90 mcg/actuation 1 inh inhalation QID PRN Shortness 10/12/23 10/07/24 aerosol inhaler Of Breath Or Wheezing lidocaine 5 % topical patch 1 patch topical DAILY PRN Pain 11/03/23 10/07/24 insulin glargine 100 unit/mL (3 50 unit subcut BID 04/28/24 10/07/24 mL) subcutaneous pen magnesium oxide 400 mg (241.3 mg 400 mg PO QAM 08/22/24 10/07/24 magnesium) tablet Previous Rx's Medication Instructions Recorded blood-glucose meter (Haiku Deck #1 ea 10/12/22 Verio Flex Meter) lancets 30 gauge (3GuppiesTouch Delica #100 ea 10/12/22 Plus Lancet) Symbicort 160 mcg-4.5 2 inh inhalation BID #3 Inhalers 11/14/22 mcg/actuation HFA aerosol inhaler (budesonide-formoterol) blood sugar diagnostic (Every1Mobileuch #100 ea 01/17/23 Verio test strips) trolamine salicylate 10 % topical 1 applic EXT BID PRN left sided 11/06/23 cream (Myoflex) neck pain #35.4 grams blood-glucose sensor (FreeStyle #2 ea 12/13/23 Karla 3 Plus Sensor device) blood-glucose,internetworking technician,cont #1 ea 01/14/24 (FreeStyle Karla 3 [place]) Farxiga 10 mg tablet 10 mg PO DAILY #90 tabs 04/28/24 (dapagliflozin propanediol) isosorbide mononitrate 60 mg 60 mg PO DAILY #90 tabs 04/28/24 tablet,extended release 24 hr metoprolol succinate 100 mg 100 mg PO BID #180 tabs 04/28/24 tablet,extended release 24 hr sacubitril 97 mg-valsartan 103 mg 1 tab PO BID #180 tabs 04/28/24 tablet (Entresto) tirzepatide 7.5 mg/0.5 mL 7.5 mg (0.5 mL) subcut Q7D 30 days 05/09/24 subcutaneous pen injector #2 mL Oxygen Home #1 ea 05/29/24 spironolactone 50 mg tablet 50 mg PO BID #60 tabs 06/24/24 furosemide 80 mg tablet 80 mg PO BID #60 tabs 06/28/24 metoprolol succinate 25 mg 25 mg PO BID #60 tabs 07/15/24 tablet,extended release 24 hr Portable Oxygen #1 ea 08/20/24 metolazone 2.5 mg tablet 2.5 mg PO DAILY #3 tabs 09/04/24 atorvastatin 10 mg tablet 10 mg PO DAILY #90 tabs 09/11/24 pen needle, diabetic 31 gauge x #500 ea 09/26/24 5/16" (Comfort EZ Pen [place]) alcohol swabs (Alcohol Pads) 5 pad topical DAILY #500 ea 09/29/24 insulin lispro 100 unit/mL 10 unit (0.1 mL) subcut TID #15 mL 10/01/24 subcutaneous pen (Humalog KwikPen (U-100) Insulin) nystatin 100,000 unit/gram topical 1 applic topical BID PRN Skin 10/07/24 powder Irritation #60 grams triamcinolone acetonide 0.025 % 1 applic topical TID PRN rash #454 10/07/24 topical cream grams Results & Data (ED) Vital Signs Vital Signs - 24 hr 10/07/24 14:53 10/07/24 15:02 10/07/24 15:07 Temperature 36.7 C Temperature Source Oral Pulse Rate 120 H Pulse Rate [Left Apical] 114 H Respiratory Rate 28 H 20 Respiratory Effort / Characteristics Spontaneous Short of Breath Spontaneous Short of Breath Respiratory Depth Normal Normal Respiratory Pattern Regular Regular Blood Pressure 199/139 H Blood Pressure [Right Arm] 186/132 H Blood Pressure Mean 159 Blood Pressure Mean [Right Arm] 150 Pulse Oximetry 96 95 Oxygen Delivery Method Nasal Cannula BiPAP Nasal Cannula BiPAP Oxygen Flow Rate 5 5 Fraction of Inspired Oxygen Sepsis Recent Fever Within 48 Hours No Sepsis New/Unexplained Change in Mental Status N/A Sepsis Action Taken by Nursing No Action Required 10/07/24 15:10 10/07/24 15:15 10/07/24 15:20 Temperature Temperature Source Pulse Rate 118 H Pulse Rate [Left Apical] 114 H 104 H Respiratory Rate 22 21 Respiratory Effort / Characteristics Non-Labored Spontaneous Spontaneous Short of Breath Respiratory Depth Normal Normal Respiratory Pattern Regular Regular Blood Pressure Blood Pressure [Right Arm] 185/126 H 175/134 H Blood Pressure Mean Blood Pressure Mean [Right Arm] 145 147 Pulse Oximetry 97 95 95 Oxygen Delivery Method BiPAP BiPAP Oxygen Flow Rate Fraction of Inspired Oxygen 30 Sepsis Recent Fever Within 48 Hours Sepsis New/Unexplained Change in Mental Status Sepsis Action Taken by Nursing 10/07/24 15:30 10/07/24 15:45 10/07/24 16:00 Temperature Temperature Source Pulse Rate Pulse Rate [Left Apical] 105 H 105 H Respiratory Rate 22 21 Respiratory Effort / Characteristics Spontaneous Short of Breath Spontaneous Short of Breath Respiratory Depth Normal Normal Respiratory Pattern Regular Regular Blood Pressure 168/132 H Blood Pressure [Right Arm] 169/129 H 175/130 H Blood Pressure Mean 139 Blood Pressure Mean [Right Arm] 142 145 Pulse Oximetry 97 96 Oxygen Delivery Method BiPAP BiPAP Oxygen Flow Rate Fraction of Inspired Oxygen Sepsis Recent Fever Within 48 Hours Sepsis New/Unexplained Change in Mental Status Sepsis Action Taken by Nursing 10/07/24 16:09 10/07/24 16:10 10/07/24 16:12 Temperature Temperature Source Pulse Rate 104 H 109 H Pulse Rate [Left Apical] Respiratory Rate 23 24 Respiratory Effort / Characteristics Respiratory Depth Respiratory Pattern Blood Pressure 183/136 H Blood Pressure [Right Arm] Blood Pressure Mean 152 Blood Pressure Mean [Right Arm] Pulse Oximetry 96 96 Oxygen Delivery Method BiPAP BiPAP Oxygen Flow Rate Fraction of Inspired Oxygen Sepsis Recent Fever Within 48 Hours Sepsis New/Unexplained Change in Mental Status Sepsis Action Taken by Nursing 10/07/24 16:15 10/07/24 16:17 Temperature Temperature Source Pulse Rate 95 H Pulse Rate [Left Apical] Respiratory Rate Respiratory Effort / Characteristics Respiratory Depth Respiratory Pattern Blood Pressure 184/118 H Blood Pressure [Right Arm] Blood Pressure Mean 133 Blood Pressure Mean [Right Arm] Pulse Oximetry Oxygen Delivery Method Oxygen Flow Rate Fraction of Inspired Oxygen Sepsis Recent Fever Within 48 Hours Sepsis New/Unexplained Change in Mental Status Sepsis Action Taken by Longterm Medications Current Medication List: was personally reviewed by me Laboratory Data Attestation: I reviewed the patient's lab results. 10/07/24 14:57 10/07/24 22:20 Lab Results 10/07/24 10/07/24 10/07/24 Range/Units 14:57 15:00 15:03 WBC 8.41 (4.8-10.8) K/ul RBC 5.20 (4.70-6.10) M/uL Hgb 15.6 (14.0-18.0) g/dl POC Hgb 16.3 (14.0-18.0) g/dl Hct 45.3 (42.0-52.0) % POC Hct 48 (42-52) % MCV 87.1 (80.0-100.0) fL MCH 30.0 (25.0-34.0) pg MCHC 34.4 (32.0-36.0) g/dL RDW Std Deviation 45.5 (36.4-46.3) fL RDW Coeff of Zoltan 14.3 (11.5-14.5) % Plt Count 125 L (130-400) K/uL MPV 10.1 (9.4-12.4) fL Immature Gran % (Auto) 0.5 % Neut % (Auto) 70.1 % Lymph % (Auto) 19.9 % Coleman % (Auto) 7.6 % Eos % (Auto) 1.5 % Baso % (Auto) 0.4 % Neut # (Auto) 5.90 (1.40-6.50) K/uL Lymph # (Auto) 1.67 (1.20-3.40) K/uL Coleman # (Auto) 0.64 H (0.11-0.59) K/uL Eos # (Auto) 0.13 (0.00-0.50) K/uL Baso # (Auto) 0.03 (0.00-0.20) K/uL Immature Gran # (Auto) 0.04 (0.01-0.20) K/uL PT 10.9 (9.0-12.0) Seconds INR 1.0 (0.9-1.1) APTT 31 (21-31) Seconds PTT Ratio 1.2 POC Sodium 141 (135-144) mmol/L Sodium 138 (136-145) mmol/L POC Potassium 4.2 (3.3-5.0) mmol/L Potassium 4.1 (3.5-5.1) mmol/L POC Chloride 106 (101-112) mmol/L Chloride 109 H (98-107) mmol/L Carbon Dioxide 23 (21-32) mmol/L POC Total CO2 22 L (24-31) mmol/L Anion Gap 6 (3-11) POC Anion Gap 18.0 (16-25) mmol/L POC BUN 9 (7-18) mg/dl BUN 10 (6-23) mg/dl Creatinine 0.88 (0.6-1.4) mg/dl POC Creatinine 0.9 (0.6-1.3) mg/dl Est Cr Clr Drug Dosing 153.9 ml/min eGFR 106.73 BUN/Creatinine Ratio 11.4 (10-20) Glucose 153 H (70-99(Fasting)) mg/dl POC Glucose (other) 158 H (70-99) mg/dl Calcium 8.8 (8.6-10.3) mg/dl POC Ioniz Calcium [place] 1.18 (1.12-1.32) mmol/l Magnesium 1.6 L (1.7-2.4) mg/dl Total Bilirubin 1.0 (0.2-1.0) mg/dl AST 16 (13-39) U/L ALT 13 (7-52) U/L Alkaline Phosphatase 81 (34-104) U/L Troponin I High Sens 20.5 H (0-20) pg/ml B-Natriuretic Peptide 905 H (0-100) pg/ml Total Protein 7.3 (6.0-8.3) gm/dl Albumin 3.8 (3.4-5.0) gm/dl Globulin 3.5 (2.5-4.0) gm/dl Albumin/Globulin Ratio 1.1 (0.9-2) Adenovirus (PCR) Not Detected (NotDetected) B. pertussis DNA (PCR) Not Detected (NotDetected) B.parapertussis DNA PCR Not Detected (NotDetected) C. pneumoniae DNA (PCR) Not Detected (NotDetected) Coronavirus OC43 (PCR) Not Detected (NotDetected) Coronavirus HKU1 (PCR) Not Detected (NotDetected) Coronavirus 229E (PCR) Not Detected (NotDetected) SARS-CoV-2 (PCR) Not Detected (NotDetected) Coronavirus NL63 (PCR) Not Detected (NotDetected) Human Metapneumovir PCR Not Detected (NotDetected) Influenza Type A (PCR) Not Detected (NotDetected) Influenza Type B (PCR) Not Detected (NotDetected) M. pneumoniae (PCR) Not Detected (NotDetected) Parainfluenza 1 (PCR) Not Detected (NotDetected) Parainfluenza 2 (PCR) Not Detected (NotDetected) Parainfluenza 3 (PCR) Not Detected (NotDetected) Parainfluenza 4 (PCR) Not Detected (NotDetected) RSV (PCR) Not Detected (NotDetected) Entero/Rhino (PCR) Not Detected (NotDetected) Administered Medications Fluticasone/Vilanterol (Fluticasone/Vilanterol 100/25mcg 14 Puffs/Inhaler) 1 puffs INH DAILY [facility]; Protocol Stop: 11/06/24 20:59 Last Admin: 10/07/24 20:03 Dose: 1 puffs Documented By: SG Heparin Sodium (Porcine) (Heparin Sod 5,000 Unit/0.5 Ml Vial) 5,000 units SQ Q8 SUKHWINDER Stop: 11/06/24 21:59 Last Admin: 10/07/24 21:30 Dose: Not Given Documented By: SG Nitroglycerin/Dextrose (Nitroglycerin/D5w 100 Mcg/Ml) 250 mls @ 33 mls/hr IV .Q7H35M SUKHWINDER; Protocol Stop: 11/06/24 15:59 Last Titration: 10/07/24 22:40 Dose: 55 mcg/min, 33 mls/hr Documented By: Titration: 10/07/24 22:30 Dose: 60 mcg/min, 36 mls/hr Documented By: Titration: 10/07/24 22:20 Dose: 65 mcg/min, 39 mls/hr Documented By: Titration: 10/07/24 22:10 Dose: 70 mcg/min, 42 mls/hr Documented By: Titration: 10/07/24 22:00 Dose: 75 mcg/min, 45 mls/hr Documented By: Titration: 10/07/24 21:50 Dose: 80 mcg/min, 48 mls/hr Documented By: Titration: 10/07/24 21:40 Dose: 85 mcg/min, 51 mls/hr Documented By: Titration: 10/07/24 21:30 Dose: 90 mcg/min, 54 mls/hr Documented By: Titration: 10/07/24 21:20 Dose: 95 mcg/min, 57 mls/hr Documented By: Titration: 10/07/24 21:15 Dose: 100 mcg/min, 60 mls/hr Documented By: Admin: 10/07/24 20:51 Dose: 105 mcg/min, 63 mls/hr Documented By: SG Co-signed By: [id number] Titration: 10/07/24 20:41 Dose: Infused Documented By: SG Co-signed By: [id number] Titration: 10/07/24 19:02 Dose: 105 mcg/min, 63 mls/hr Documented By: SG Co-signed By: [email or web address] Titration: 10/07/24 18:48 Dose: 105 mcg/min, 63 mls/hr Documented By: Titration: 10/07/24 17:57 Dose: 100 mcg/min, 60 mls/hr Documented By: Titration: 10/07/24 17:46 Dose: 100 mcg/min, 60 mls/hr Documented By: Titration: 10/07/24 17:36 Dose: 105 mcg/min, 63 mls/hr Documented By: Titration: 10/07/24 17:28 Dose: 105 mcg/min, 63 mls/hr Documented By: Titration: 10/07/24 17:21 Dose: 100 mcg/min, 60 mls/hr Documented By: Titration: 10/07/24 17:11 Dose: 95 mcg/min, 57 mls/hr Documented By: Titration: 10/07/24 17:06 Dose: 90 mcg/min, 54 mls/hr Documented By: Titration: 10/07/24 17:01 Dose: 85 mcg/min, 51 mls/hr Documented By: Titration: 10/07/24 16:56 Dose: 80 mcg/min, 48 mls/hr Documented By: Titration: 10/07/24 16:50 Dose: 75 mcg/min, 45 mls/hr Documented By: Titration: 10/07/24 16:46 Dose: 70 mcg/min, 42 mls/hr Documented By: Titration: 10/07/24 16:45 Dose: 65 mcg/min, 39 mls/hr Documented By: Titration: 10/07/24 16:41 Dose: 0 mcg/min, 0 mls/hr Documented By: Titration: 10/07/24 16:37 Dose: 65 mcg/min, 39 mls/hr Documented By: Titration: 10/07/24 16:31 Dose: 60 mcg/min, 36 mls/hr Documented By: Titration: 10/07/24 16:27 Dose: 55 mcg/min, 33 mls/hr Documented By: Admin: 10/07/24 16:16 Dose: 50 mcg/min, 30 mls/hr Documented By: DMH Co-signed By: KHADRA Magnesium Sulfate/Dextrose (Magnesium Sulfate / D5w) 1 gm in 100 mls @ 50 mls/hr IV Q2H SUKHWINDER Stop: 10/08/24 01:29 Last Admin: 10/07/24 22:55 Dose: 50 mls/hr Documented By: Infusion: 10/07/24 22:55 Dose: Infused Documented By: Admin: 10/07/24 20:55 Dose: 50 mls/hr Documented By: CATHERINE Bumetanide 4 mg/ Syringe 16 mls @ 4 mls/min IV BID@0900,1700 SUKHWINDER Stop: 11/06/24 18:59 Last Admin: 10/07/24 19:28 Dose: 4 mls/min Documented By: CATHERINE Insulin Aspart (Insulin Aspart Per Unit Charge) 0 units SQ ACHS SUKHWINDER Stop: 11/06/24 20:59 Last Admin: 10/07/24 21:24 Dose: 5 units Documented By: CATHERINE Co-signed By: [id number] Insulin Glargine (Lantus Per Unit Charge) 50 units SC BID SUKHWINDER Stop: 11/06/24 20:59 Last Admin: 10/07/24 21:23 Dose: 50 units Documented By: CATHERINE Co-signed By: [id number] Metoprolol Succinate (Metoprolol Succ 50mg Ext Rel Tab) 100 mg PO BID SUKHWINDER Stop: 11/06/24 20:59 Last Admin: 10/07/24 20:04 Dose: 100 mg Documented By: CATHERINE Metoprolol Succinate (Metoprolol Succ 25mg Ext Rel Tab) 25 mg PO BID SUKHWINDER Stop: 11/06/24 20:59 Last Admin: 10/07/24 20:05 Dose: 25 mg Documented By: CATHERINE Sacubitril/Valsartan (Valsartan/Sacubitril 103/97mg Tab) 1 tab PO BID SUKHWINDER Stop: 11/06/24 20:59 Last Admin: 10/07/24 20:04 Dose: 1 tab Documented By: CATHERINE Spironolactone (Spironolactone 25 Mg Tab) 50 mg PO BID SUKHWINDER Stop: 11/06/24 20:59 Last Admin: 10/07/24 20:03 Dose: 50 mg Documented By: CATHERINE Discontinued Medications Furosemide (Furosemide 40 Mg/4 Ml Vial) 80 mg IV ONE ONE Stop: 10/07/24 15:09 Last Admin: 10/07/24 15:21 Dose: 80 mg Documented By: CORY Magnesium Sulfate/Dextrose (Magnesium Sulfate / D5w) 1 gm in 100 mls @ 50 mls/hr IV Q2H SUKHWINDER Stop: 10/07/24 20:59 Last Infusion: 10/07/24 21:04 Dose: Infused Documented By: Admin: 10/07/24 19:02 Dose: 50 mls/hr Documented By: Infusion: 10/07/24 19:02 Dose: Infused Documented By: Admin: 10/07/24 17:22 Dose: 50 mls/hr Documented By: CORY Ibuprofen (Ibuprofen 200 Mg Tab) 200 mg PO NOW STA Stop: 10/07/24 20:10 Last Admin: 10/07/24 20:26 Dose: 200 mg Documented By: CATHERINE Miscellaneous (Stat Iv Infusion Titration Per Protocol) 1 each N/A NOW STA Stop: 10/07/24 15:49 Last Admin: 10/07/24 16:18 Dose: Not Given Documented By: CORY Nitroglycerin (Nitroglycerin Sl 0.4 Mg/Tab Tab) 0.4 mg SL NOW STA Stop: 10/07/24 14:58 Last Admin: 10/07/24 15:04 Dose: 0.4 mg Documented By: CORY Nitroglycerin (Nitroglycerin 2% Ointment 30gm Tube) 0.5 inch EXT NOW ONE Stop: 10/07/24 14:58 Last Admin: 10/07/24 15:05 Dose: 0.5 inch Documented By: CORY Imaging Data Radiologist's Impression: Chest X-Ray 10/07/24 14:57 SINGLE VIEW CHEST CLINICAL HISTORY: Dyspnea FINDINGS: An AP, portable, upright chest radiograph is compared to study dated 09/21/2024 and correlated with chest CT dated 08/22/2024. A single lead cardiac AICD is unchanged in position. The heart is enlarged. There is pulmonary vascular congestion with interstitial edema. Small pleural effusions are suspected. No pneumothorax is seen. The skeletal structures are osteopenic. The bony thorax is grossly intact. IMPRESSION: 1. Cardiomegaly and AICD with evidence of congestive failure and pulmonary edema. Radiographic follow-up to resolution is recommended. 2. Suspect small pleural effusions. ACT 112: Negative or not required by law. Electronically signed by: Abhilash Carpio M.D. 10/07/2024 3:21 PM Discharge Plan Visit Data Chief Complaint: Shortness of Breath/Dyspnea Stated Complaint: SOB ED Provider: Mikhail Dodd Discharge Problem: Acute exacerbation of CHF (congestive heart failure), Acute on chronic respiratory failure with hypoxia, Hypertensive emergency, Thrombocytopenia Patient Disposition: Admitted As Inpatient Condition: Serious Discharge Instructions Interventions: ED Discharge Assessment Last Done: 10/07/24 17:55 Discharge Problem: Acute exacerbation of CHF (congestive heart failure) Qualifiers: Heart failure type: systolic Qualified Code(s): I50.23 - Acute on chronic systolic (congestive) heart failure
[2024-10-07 15:13] LABS: Hematocrit (blood only) 45.3 % (42.0-52.0); Hemoglobin 15.6 g/dl (14.0-18.0); Immature Granulocytes # (auto) 0.04 K/uL (0.01-0.20); Immature Granulocytes % (auto) 0.5 %; Mean Corpuscular Hemoglobin 30.0 pg (25.0-34.0); Mean Corpuscular Volume 87.1 fL (80.0-100.0); Platelet Count 125 K/uL (130-400); RDW Standard Deviation 45.5 fL (36.4-46.3); Red Blood Count 5.20 M/uL (4.70-6.10); White Blood Count 8.41 K/ul (4.8-10.8)
[2024-10-07] MEDS: FUROSEMIDE 40 MG/4 ML VIAL IV ONE (15:21)
--- NOTE | 2024-10-07 15:22 | XRay Report ---
SINGLE VIEW CHEST CLINICAL HISTORY: Dyspnea FINDINGS: An AP, portable, upright chest radiograph is compared to study dated 09/21/2024 and correlat ed with chest CT dated 08/22/2024. A single lead cardiac AICD is unchanged in position. The heart is e nlarged. There is pulmonary vascular congestion with interstitial edema. Small pleural effusions are suspected. No pneumothorax is seen. The skeletal structures are osteopenic. The bony thorax is grossl y intact. IMPRESSION: 1. Cardiomegaly and AICD with evidence of congestive failure and pulmonary edema. Radiographic follow -up to resolution is recommended. 2. Suspect small pleural effusions. ACT 112: Negative or not required by law. Electronically signed by: Abhilash Carpio M.D. 10/07/2024 3:21 PM
[2024-10-07 15:30] LABS: Alanine Aminotransferase 13.0 U/L (7-52); Albumin Globulin Ratio 1.1 (0.9-2); Alkaline Phosphatase 81.0 U/L (34-104); Anion Gap 6.0 (3-11); Bilirubin,Total 1.0 mg/dl (0.2-1.0); Blood Urea Nitrogen 10.0 mg/dl (6-23); Calcium 8.8 mg/dl (8.6-10.3); Carbon Dioxide 23.0 mmol/L (21-32); Chloride 109.0 mmol/L (98-107); Creatinine Clr Calc Pharmacy 153.9 ml/min; Globulin 3.5 gm/dl (2.5-4.0); Glucose 153.0 mg/dl (70-99(Fasting)); Magnesium 1.6 mg/dl (1.7-2.4); Potassium 4.1 mmol/L (3.5-5.1); Sodium 138.0 mmol/L (136-145); Total Protein 7.3 gm/dl (6.0-8.3)
[2024-10-07 15:41] LABS: INR 1.0 (0.9-1.1); Partial Thromboplastin Time 31 Seconds (21-31); Prothrombin Time 10.9 Seconds (9.0-12.0)
--- NOTE | 2024-10-07 16:05 | Critical Care Consultation ---
Date of Consultation October 07, 2024 Assessment & Plan (1) Hypertensive emergency: (2) Acute on chronic respiratory failure with hypoxia: (3) Acute on chronic systolic CHF (congestive heart failure): (4) Pulmonary edema: (5) Type 2 diabetes mellitus with peripheral neuropathy: (6) Diabetic peripheral neuropathy: (7) Thrombocytopenia: (8) Morbid obesity with BMI of 50.0-59.9, adult: Plan Reason Critically Ill: 48-year-old male admitted to the hospital for worsening shortness of breath. Was on nitro drip and the ER sent to ICU for further management Past medical history: Diabetes type 2, morbid obesity, MARIELENA on BiPAP, systolic CHF with AICD Neuro - [facility]: Negative Cardiac - 2D echo 08/23/2024: EF 15-20%, grade 3 diastolic dysfunction, severe global hypokinesis of the left ventricle, septal akinesis, RV normal in size and with mildly reduced function -- Acute exacerbation of systolic and diastolic CHF BNP 905 Continue with aggressive diuresis Patient's regimen at home is the following Entresto, spironolactone 50 mg twice daily, metoprolol succinate 125 mg twice daily Metolazone 2.5 mg daily Lasix 80 mg twice daily --Hypertensive emergency Systolic blood pressure on presentation was 199 with diastolic 135 Continue with nitro drip to decrease MAP by 25%. Aim for systolic blood pressure 150 --Elevated troponin Likely type II SC Respiratory - -- Acute on chronic hypoxic respiratory failure Likely secondary to CHF exacerbation with pulmonary edema BiPAP nightly and as needed shortness of breath Continue with aggressive diuresis --Patient carries a history of COPD Only [id number] smoking history, quit at the age of 19 Does not seem to be bronchospastic On Symbicort 160 at home --History of MARIELENA Supposed to be on BiPAP 16/8 cm Noncompliant GI - -- No acute issues RENAL/LYTES - -- No acute issues Monitor BUNs/creatinine Avoid nephrotoxic medication ENDO - -- Diabetes type 2 ICU hypoglycemia protocol HEME - -- Chronic thrombocytopenia Continue to monitor ID - -- No clear source of infection --Prophylaxis VTE: Heparin GI: None Lines: Peripheral Diet: N.p.o. Plan: Measures strict in and out Systolic blood pressure on presentation was 199 with diastolic 135 Continue with nitro drip to decrease MAP by 25%. Aim for systolic blood pressure 150 Will change Lasix to Bumex 4 mg twice daily. Low threshold to start Bumex drip. Follow-up phosphorus and LFTs Recommend repeating BMP later today. Magnesium being replaced. Will give total of 4 g. Patient is agreeable to be intubated if there is any worsening I have personally spent 60 minutes of critical care time in the direct management of this patient. This is a life/limb threatening event. This includes time spent evaluating patient, direct bedside care, chart review, placing orders, interpretation of diagnostic studies, discussion with consultants, patient, and family members, as well as other required patient management activities. This time is exclusive of all separately billable procedures, and teaching time and separate from and in addition to any other critical care service time. History of Present Illness History of Present Illness 48-year-old male admitted to the hospital for worsening shortness of breath. Was on nitro drip and the ER sent to ICU for further management Past medical history: Diabetes type 2, morbid obesity, MARIELENA on BiPAP, systolic CHF with AICD Brief signout was given by the ER. At time of examination in the ER, patient was on BiPAP 14/10, getting tidal volumes in the 800. His respiratory rate was in the low to mid 20s. He was not in any respiratory distress He stated that he is feeling better compared to when he came to the hospital He has already been given 80 mg of Lasix. He was on 50 of nitroglycerin and it was increased to 65 Blood pressure on the time of examination was 160/130 in the right arm. He says he is compliant with his medication and he went took his medication today. He has gained approximately 10 kg in the last few weeks to a month. Denies any fever or chills No dysuria, no diarrhea No unusual headache or blurry vision. Social history: Only 44-[id number]-kjct smoking history, quit at the age of 19. 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 Allergies Allergy/AdvReac Type Severity Reaction Status Date / Time albuterol Allergy Severe proair Verified 10/07/24 13:22 "trouble taking breaths" ceftriaxone Allergy Severe SHORTNESS Verified 10/07/24 13:22 OF BREATH lidocaine Allergy Severe SHORTNESS Verified 10/07/24 13:22 OF BREATH, diaphoretic, hives mushroom Allergy Severe Anaphylaxis Verified 10/07/24 13:22 procaine Allergy Severe SHORTNESS Verified 10/07/24 13:22 OF BREATH, diaphoretic, hives amoxicillin Allergy Intermediate HIVES/FACIAL Verified 10/07/24 13:22 SWELLING clavulanic acid Allergy Intermediate HIVES/FACIAL Verified 10/07/24 13:22 SWELLING lisinopril Allergy Intermediate HIVES Verified 10/07/24 13:22 shellfish derived Allergy Unknown Unknown Verified 10/07/24 13:22 acetaminophen AdvReac Mild NAUSEA Verified 10/07/24 13:22 Fish Containing Products AdvReac Unknown Unknown Verified 10/07/24 13:22 Home Medications Medication Instructions Recorded Confirmed Type nitroglycerin 0.4 mg sublingual 0.4 mg sublingual UD PRN Chest Pain 04/24/19 10/07/24 History tablet (Nitrostat) aspirin 81 mg tablet,delayed 81 mg PO QAM 06/16/21 10/07/24 History release (Neisha Low Dose Aspirin) albuterol sulfate 2.5 mg/3 mL 2.5 mg inhalation Q6H PRN 12/02/21 10/07/24 History (0.083 %) solution for nebulization Shortness Of Breath Or Wheezing budesonide 0.25 mg/2 mL suspension 0.25 mg inhalation DAILY PRN 09/15/22 10/07/24 History for nebulization Shortness Of Breath blood-glucose meter ([facility] #1 ea 10/12/22 10/07/24 Rx Verio Flex Meter) lancets 30 gauge ([facility] Delica #100 ea 10/12/22 10/07/24 Rx Plus Lancet) Symbicort 160 mcg-4.5 2 inh inhalation BID #3 Inhalers 11/14/22 10/07/24 Rx mcg/actuation HFA aerosol inhaler (budesonide-formoterol) blood sugar diagnostic ([facility] #100 ea 01/17/23 10/07/24 Rx Verio test strips) albuterol sulfate 90 mcg/actuation 1 inh inhalation QID PRN Shortness 10/12/23 10/07/24 History aerosol inhaler Of Breath Or Wheezing lidocaine 5 % topical patch 1 patch topical DAILY PRN Pain 11/03/23 10/07/24 History trolamine salicylate 10 % topical 1 applic EXT BID PRN left sided 11/06/23 10/07/24 Rx cream (Myoflex) neck pain #35.4 grams blood-glucose sensor (FreeStyle #2 ea 12/13/23 10/07/24 Rx Karla 3 Plus Sensor device) blood-glucose,nicker,cont #1 ea 01/14/24 10/07/24 Rx (FreeStyle Karla 3 [place]) Farxiga 10 mg tablet 10 mg PO DAILY #90 tabs 04/28/24 10/07/24 Rx (dapagliflozin propanediol) insulin glargine 100 unit/mL (3 50 unit subcut BID 04/28/24 10/07/24 History mL) subcutaneous pen isosorbide mononitrate 60 mg 60 mg PO DAILY #90 tabs 04/28/24 10/07/24 Rx tablet,extended release 24 hr metoprolol succinate 100 mg 100 mg PO BID #180 tabs 04/28/24 10/07/24 Rx tablet,extended release 24 hr sacubitril 97 mg-valsartan 103 mg 1 tab PO BID #180 tabs 04/28/24 10/07/24 Rx tablet (Entresto) tirzepatide 7.5 mg/0.5 mL 7.5 mg (0.5 mL) subcut Q7D 30 days 05/09/24 10/07/24 Rx subcutaneous pen injector #2 mL Oxygen Home #1 ea 05/29/24 10/07/24 Rx spironolactone 50 mg tablet 50 mg PO BID #60 tabs 06/24/24 10/07/24 Rx furosemide 80 mg tablet 80 mg PO BID #60 tabs 06/28/24 10/07/24 Rx metoprolol succinate 25 mg 25 mg PO BID #60 tabs 07/15/24 10/07/24 Rx tablet,extended release 24 hr Portable Oxygen #1 ea 08/20/24 10/07/24 Rx magnesium oxide 400 mg (241.3 mg 400 mg PO QAM 08/22/24 10/07/24 History magnesium) tablet metolazone 2.5 mg tablet 2.5 mg PO DAILY #3 tabs 09/04/24 10/07/24 Rx atorvastatin 10 mg tablet 10 mg PO DAILY #90 tabs 09/11/24 10/07/24 Rx pen needle, diabetic 31 gauge x #500 ea 09/26/24 10/07/24 Rx /16" (Comfort EZ Pen [place]ust) alcohol swabs (Alcohol Pads) 5 pad topical DAILY #500 ea 09/29/24 10/07/24 Rx insulin lispro 100 unit/mL 10 unit (0.1 mL) subcut TID #15 mL 10/01/24 10/07/24 Rx subcutaneous pen (Humalog KwikPen (U-100) Insulin) nystatin 100,000 unit/gram topical 1 applic topical BID PRN Skin 10/07/24 10/07/24 Rx powder Irritation #60 grams triamcinolone acetonide 0.025 % 1 applic topical TID PRN rash #454 10/07/24 10/07/24 Rx topical cream grams Patient History Medical History Hypertension Type 2 diabetes mellitus with microalbuminuria HFrEF (heart failure with reduced ejection fraction) Chronic respiratory failure Chronic respiratory failure with hypoxia Type 2 diabetes mellitus with obesity Morbid obesity with BMI of 50.0-59.9, adult Hypertension Non-sustained ventricular tachycardia Obstructive sleep apnea NICM (nonischemic cardiomyopathy) Pt admitted for elective ICD. Underwent procedure without any complications monitored over night and discharged home. Combined systolic and diastolic heart failure Nonischemic cardiomyopathy, unclear etiology. Difficult to manage. Integrated into heart failure clinic. Frequent admissions for heart failure exacerbations. Echo (05/31) EF=25-30% with mod to severe global hypokinesis, basal kelsi-septal akinetic wall, LVH, RVSP elevated at 30-40mmHg, and mod dilated ascending aorta. Managed medically with ASA + BB + ARB/Neprilysin inhibitor (Entresto) + high dose furosemide (160mg BID) + metolazone (3x weekly). Considering ICD given EF. COPD (chronic obstructive pulmonary disease) Hypomagnesemia Medical non-compliance Intellectual disability Chronic dental pain Small bowel obstruction Housing instability, currently housed, at risk for homelessness Hearing loss of both ears Nonproliferative retinopathy due to secondary diabetes Dilatation of thoracic aorta Iliac aneurysm Vitamin D insufficiency Previously deficient, taking Vit D supplementation Umbilical hernia Lung nodule Fatty liver Surgical History AICD (automatic cardioverter/defibrillator) present H/O oral surgery History of carpal tunnel surgery S/P tonsillectomy History of cholecystectomy Family History Father , age 57 of an SC. Heart disease Myocardial infarction Mother , age 67 of a ruptured neck vessel Sudden Other Depression Lung disease No pertinent family history Denies family history of Ovarian cancer Prostate cancer Breast cancer Colorectal cancer Social History Smoking Status: Former smoker Tobacco Type: Cigarettes Age Started Using Tobacco: 14; Age Quit Using Tobacco: 18; packs per day: 1; Second Hand Exposure: No; Do You Dip or Chew Tobacco: No; Hx Alcohol Use: No Hx Substance Use: No Preferred Language: Mauritian Communication Ability: Effective Visual Impairment: No Limitations Hearing Ability: Normal Carpet Binder Required: No Beliefs That Will Affect Care: None marital status: Current Living Situation: Family Current Living Situation Comment: Lives at home with current occupational status: unemployed How many Children do You have: 0 Feels Safe at Home: Yes Childhood Exposure to Second-Hand Smoke: Yes Dental Care, Regularly: Yes Physical Activity Frequency: Does not Exercise Seatbelt Use: never Sunscreen Use: No Assistive Devices: CPAP and Oxygen - Continuous Review of Systems 2 Review of Systems: All systems reviewed & are unremarkable except as noted in HPI & below Physical Exam 2 Physical Exam: Constitutional: No acute distress HEENT: EOMI, PERRLA Respiratory system: Decreased air entry bilaterally, no wheeze, no rhonchi, positive crackles bilaterally CVS: S1-S2 positive, no murmurs or gallops Abdomen: Soft, nontender, nondistended, positive bowel sounds x4, obese Extremities: +2 pulses bilaterally radialis/ dorsalis pedis, no cyanosis, +2 pitting edema bilateral lower extremity Neuro: Awake alert oriented x3 Psych: Normal mood and affect G/U: No [place] Skin: no rashes, warm and dry Lymphatic: no cervical or axillary lymphadenopathy Results & Data Results & Data Vital Signs (Past 12 Hours) Vital Signs Temp Pulse Pulse Resp BP BP Pulse Ox 10/07/24 15:45 105 H 21 175/130 H 96 10/07/24 15:30 105 H 22 169/129 H 97 10/07/24 15:20 104 H 21 175/134 H 95 10/07/24 15:15 114 H 185/126 H 95 10/07/24 15:10 118 H 22 97 10/07/24 15:07 10/07/24 15:02 114 H 20 186/132 H 95 10/07/24 14:53 36.7 C 120 H 28 H 199/39 H 96 O2 Del Method O2 Flow Rate FiO2 10/07/24 15:45 BiPAP 10/07/24 15:30 BiPAP 10/07/24 15:20 BiPAP 10/07/24 15:15 BiPAP 10/07/24 15:10 30 10/07/24 15:07 Nasal Cannula, BiPAP 5 10/07/24 15:02 BiPAP 10/07/24 14:53 Nasal Cannula 5 Laboratory Results 10/07/24 14:57 10/07/24 14:57 Coding Level of Care Code 02616 CRITICAL CARE 1ST 30-74M Diagnoses Hypertensive emergency I16.1 Acute on chronic respiratory failure with hypoxia J96.21 Acute on chronic systolic CHF (congestive heart failure) I50.23 Pulmonary edema J81.1 Type 2 diabetes mellitus with peripheral neuropathy E11.42 Diabetic peripheral neuropathy E11.42 Thrombocytopenia D69.6 Morbid obesity with BMI of 50.0-59.9, adult E66.01; Z68.43
[2024-10-07 16:09] LABS: Chlamydia pneumoniae PCR Not Detected (NotDetected); Coronavirus 229E PCR Not Detected (NotDetected); Coronavirus CoV-2 (COVID19)PCR Not Detected (NotDetected); Coronavirus HKU1 PCR Not Detected (NotDetected); Coronavirus NL63 PCR Not Detected (NotDetected); Coronavirus OC43PCR Not Detected (NotDetected); Human Metapneumovirus PCR Not Detected (NotDetected); Parainfluenza Virus 1 PCR Not Detected (NotDetected); Parainfluenza Virus 2 PCR Not Detected (NotDetected); Parainfluenza Virus 3 PCR Not Detected (NotDetected); Parainfluenza Virus 4 PCR Not Detected (NotDetected); Respiratory Syncytial VirusPCR Not Detected (NotDetected); Rhinovirus/Enterovirus PCR Not Detected (NotDetected)
[2024-10-07] MEDS: NITROGLYCERIN/D5W 100MCG/ML 250 ML IV SCH (16:16)
[2024-10-07] MEDS: STAT IV Infusion **Titration per Protocol STA (16:18)
--- NOTE | 2024-10-07 16:23 | Cardiology Consultation ---
Date of Consultation October 07, 2024 Assessment & Plan (1) Acute on chronic respiratory failure with hypoxia: (2) Acute on chronic systolic CHF (congestive heart failure): (3) Hypomagnesemia: (4) Uncontrolled hypertension: (5) Hypertensive urgency: (6) NYHA class 3 acute on chronic systolic heart failure: (7) Non-sustained ventricular tachycardia: Plan Complex 48 year old male patient Severe dilated nonischemic cardiomyopathy Severe systolic dysfunction LVEF 15-20% (08/23/2024) NYHA Class IV Catheterization in [place], [place] on August 27, 2017 with right dominant coronary anatomy without atherosclerotic changes or significant coronary artery disease. Nonsustained ventricular tachycardia Narrow QRS duration Status post single chamber Medtronic ICD implantation on 04/08/2019 Admitted on 10/07/2024 with acute on chronic dyspnea, worsening fluid retention, weight gain - acute hypoxic respiratory failure secondary to acute decompensated systolic and diastolic congestive heart failure, uncontrolled hypertension. Recommendations: * IV nitro drip for uncontrolled hypertension, hypertensive urgency * IV diuresis with furosemide, 80 mg BID to start * 2 grams IV magnesium * Maintain normokalemia and normomagnesemia. * Strict I/O's, daily weights on the same standing scale, daily laboratory work * PAP therapy as needed during the day, nightly * Continue metoprolol succinate (100 mg BID), spironolactone (50 mg BID), sacubitril-Valsartan (Entresto) 97-103 mg BID, and aspirin 81 mg/day. * Future considerations: switching metoprolol succinate to carvedilol 50 mg BID, addition of Digoxin, ? Ivabradine, ? Hydralazine * ? Candidacy for Advance Heart Failure therapies Supervising Physician Co-Signing Physician Notes Patient seen and examined. Past medical history, surgical history, social history and family history have been reviewed. The medical record and all the above studies have been reviewed. Case DW PENNY including management. Acute HFrEF HTN - accelerated Severe NICM Morbid Obesity Noncompliance DM S/P ICD correct and f/u electrolytes f/u renal function IV diuresis IV NTG - taper off when hemodynamics improve GDMT for HFrEF as tolerated adjust anti-HTN meds keeping systolic BP between 100-140 mmHg change metoprolol succinate to Coreg continue spironolactone, Entresto, and aspirin 81 mg/day. avoid hypovolemia keep patient euvolemic DVT prophylaxis keep LE elevated when sitting 1.5 L / 24 hr fluid restriction strict I&Os salt restriction counseling History of Present Illness Reason for Consultation: CHF exacerbation Requesting Physician: Dr. Mikhail Dodd Attending Physician: To be determined History of Present Illness Patient is a 48-year-old male with complex medical history who presented to the [facility] ER on Sunday, October 07, 2024 with complaints of significant shortness of breath. Patient describes a chronic degree of shortness of breath that became significantly worse starting on Sunday. This was accompanied by fluid retention as well as weight gain. No precipitating factors identified. Patient compliant with medication per conversation with patient and accompanied niece. Marked systolic and diastolic hypertension observed on presentation with reported systolic readings greater than 200, diastolic readings greater than 130. Blood pressure remains elevated despite 1 sublingual nitroglycerin tablet, 1/2 inch of Nitropaste, and 80 mg of IV furosemide. Patient notes considerable improvement in dyspnea with therapies administered in the ER. EKG on presentation was technically limited, revealing sinus tachycardia for ventricular rate of 119 bpm with left axis deviation, incomplete left bundle branch block with QRS duration 114 ms, voltage criteria for LVH High-sensitivity troponin minimally elevated at 20.5 pg/mL. Patient denies chest pain, tachypalpitations, ICD discharges, dizziness, syncope, fevers, chills, melena, hematochezia, or hematuria. Problem List: Congestive heart failure, nonischemic cardiomyopathy with severe systolic dysfunction left ventricular ejection fraction 15%, NYHA Class III-IV, and diastolic congestive heart failure Diagnostic cardiac catheterization in [place], [place] on August 27, 2017 revealed right dominant coronary anatomy without atherosclerotic changes or significant coronary artery disease. LVEDP moderately elevated at that time. Nonsustained ventricular tachycardia Status post April 08, 2019 single lead Medtronic ICD implantation by Dr. 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 Intellectual disability Allergies Allergy/AdvReac Type Severity Reaction Status Date / Time albuterol Allergy Severe proair Verified 10/07/24 13:22 "trouble taking breaths" ceftriaxone Allergy Severe SHORTNESS Verified 10/07/24 13:22 OF BREATH lidocaine Allergy Severe SHORTNESS Verified 10/07/24 13:22 OF BREATH, diaphoretic, hives mushroom Allergy Severe Anaphylaxis Verified 10/07/24 13:22 procaine Allergy Severe SHORTNESS Verified 10/07/24 13:22 OF BREATH, diaphoretic, hives amoxicillin Allergy Intermediate HIVES/FACIAL Verified 10/07/24 13:22 SWELLING clavulanic acid Allergy Intermediate HIVES/FACIAL Verified 10/07/24 13:22 SWELLING lisinopril Allergy Intermediate HIVES Verified 10/07/24 13:22 shellfish derived Allergy Unknown Unknown Verified 10/07/24 13:22 acetaminophen AdvReac Mild NAUSEA Verified 10/07/24 13:22 Fish Containing Products AdvReac Unknown Unknown Verified 10/07/24 13:22 Home Medications Medication Instructions Recorded Confirmed Type nitroglycerin 0.4 mg sublingual 0.4 mg sublingual UD PRN Chest Pain 04/24/19 10/07/24 History tablet (Nitrostat) aspirin 81 mg tablet,delayed 81 mg PO QAM 06/16/21 10/07/24 History release (Neisha Low Dose Aspirin) albuterol sulfate 2.5 mg/3 mL 2.5 mg inhalation Q6H PRN 12/02/21 10/07/24 History (0.083 %) solution for nebulization Shortness Of Breath Or Wheezing budesonide 0.25 mg/2 mL suspension 0.25 mg inhalation DAILY PRN 09/15/22 10/07/24 History for nebulization Shortness Of Breath blood-glucose meter (Stunnuch #1 ea 10/12/22 10/07/24 Rx Verio Flex Meter) lancets 30 gauge ([employer]deTouch Delica #100 ea 10/12/22 10/07/24 Rx Plus Lancet) Symbicort 160 mcg-4.5 2 inh inhalation BID #3 Inhalers 11/14/22 10/07/24 Rx mcg/actuation HFA aerosol inhaler (budesonide-formoterol) blood sugar diagnostic ([employer]deTouch #100 ea 01/17/23 10/07/24 Rx Verio test strips) albuterol sulfate 90 mcg/actuation 1 inh inhalation QID PRN Shortness 10/12/23 10/07/24 History aerosol inhaler Of Breath Or Wheezing lidocaine 5 % topical patch 1 patch topical DAILY PRN Pain 11/03/23 10/07/24 History trolamine salicylate 10 % topical 1 applic EXT BID PRN left sided 11/06/23 10/07/24 Rx cream (Myoflex) neck pain #35.4 grams blood-glucose sensor (FreeStyle #2 ea 12/13/23 10/07/24 Rx Karla 3 Plus Sensor device) blood-glucose,analyst business analysis,cont #1 ea 01/14/24 10/07/24 Rx (FreeStyle Karla 3 Ellis) Farxiga 10 mg tablet 10 mg PO DAILY #90 tabs 04/28/24 10/07/24 Rx (dapagliflozin propanediol) insulin glargine 100 unit/mL (3 50 unit subcut BID 04/28/24 10/07/24 History mL) subcutaneous pen isosorbide mononitrate 60 mg 60 mg PO DAILY #90 tabs 04/28/24 10/07/24 Rx tablet,extended release 24 hr metoprolol succinate 100 mg 100 mg PO BID #180 tabs 04/28/24 10/07/24 Rx tablet,extended release 24 hr sacubitril 97 mg-valsartan 103 mg 1 tab PO BID #180 tabs 04/28/24 10/07/24 Rx tablet (Entresto) tirzepatide 7.5 mg/0.5 mL 7.5 mg (0.5 mL) subcut Q7D 30 days 05/09/24 10/07/24 Rx subcutaneous pen injector #2 mL Oxygen Home #1 ea 05/29/24 10/07/24 Rx spironolactone 50 mg tablet 50 mg PO BID #60 tabs 06/24/24 10/07/24 Rx furosemide 80 mg tablet 80 mg PO BID #60 tabs 06/28/24 10/07/24 Rx metoprolol succinate 25 mg 25 mg PO BID #60 tabs 07/15/24 10/07/24 Rx tablet,extended release 24 hr Portable Oxygen #1 ea 08/20/24 10/07/24 Rx magnesium oxide 400 mg (241.3 mg 400 mg PO QAM 08/22/24 10/07/24 History magnesium) tablet metolazone 2.5 mg tablet 2.5 mg PO DAILY #3 tabs 09/04/24 10/07/24 Rx atorvastatin 10 mg tablet 10 mg PO DAILY #90 tabs 09/11/24 10/07/24 Rx pen needle, diabetic 31 gauge x #500 ea 09/26/24 10/07/24 Rx 5/16" (Comfort EZ Pen Leblanc) alcohol swabs (Alcohol Pads) 5 pad topical DAILY #500 ea 09/29/24 10/07/24 Rx insulin lispro 100 unit/mL 10 unit (0.1 mL) subcut TID #15 mL 10/01/24 10/07/24 Rx subcutaneous pen (Humalog KwikPen (U-100) Insulin) nystatin 100,000 unit/gram topical 1 applic topical BID PRN Skin 10/07/24 10/07/24 Rx powder Irritation #60 grams triamcinolone acetonide 0.025 % 1 applic topical TID PRN rash #454 10/07/24 10/07/24 Rx topical cream grams Patient History Medical History Hypertension Type 2 diabetes mellitus with microalbuminuria HFrEF (heart failure with reduced ejection fraction) Chronic respiratory failure Chronic respiratory failure with hypoxia Type 2 diabetes mellitus with obesity Morbid obesity with BMI of 50.0-59.9, adult Hypertension Non-sustained ventricular tachycardia Obstructive sleep apnea NICM (nonischemic cardiomyopathy) Pt admitted for elective ICD. Underwent procedure without any complications monitored over night and discharged home. Combined systolic and diastolic heart failure Nonischemic cardiomyopathy, unclear etiology. Difficult to manage. Integrated into heart failure clinic. Frequent admissions for heart failure exacerbations. Echo (05/31) EF=25-30% with mod to severe global hypokinesis, basal kelsi-septal akinetic wall, LVH, RVSP elevated at 30-40mmHg, and mod dilated ascending aorta. Managed medically with ASA + BB + ARB/Neprilysin inhibitor (Entresto) + high dose furosemide (160mg BID) + metolazone (3x weekly). Considering ICD given EF. 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 Heart disease Myocardial infarction Mother , age 67 of a ruptured neck vessel Sudden Other Depression Lung disease No pertinent family history Denies family history of Ovarian cancer Prostate cancer Breast cancer Colorectal cancer Social History Smoking Status: Former smoker Tobacco Type: Cigarettes Age Started Using Tobacco: 14; Age Quit Using Tobacco: 18; packs per day: 1; Second Hand Exposure: No; Do You Dip or Chew Tobacco: No; Hx Alcohol Use: No Hx Substance Use: No Preferred Language: British Communication Ability: Effective Visual Impairment: No Limitations Hearing Ability: Normal Swimming Pool Service Technician Required: No Beliefs That Will Affect Care: None marital status: Current Living Situation: Family Current Living Situation Comment: Lives at home with current occupational status: unemployed How many Children do You have: 0 Feels Safe at Home: Yes Childhood Exposure to Second-Hand Smoke: Yes Dental Care, Regularly: Yes Physical Activity Frequency: Does not Exercise Seatbelt Use: never Sunscreen Use: No Assistive Devices: CPAP and Oxygen - Continuous Review of Systems Review of Systems: Complete Review of Systems is as stated above, negative, or noncontributory. Physical Exam Physical Exam: General: Minimal distress, on BiPAP. A&Ox3. HENT: Normocephalic. Atraumatic. Eyes: PER. Conjunctiva pink, sclera clear. Neck: JVD. Heart: Regular at 100 bpm. No murmur appreciated. PMI no appreciated. Lungs: Diminished. Decreased. Bibasilar rales. Abdomen: Protuberant. +BS. Soft. Nontender. No organomegaly. Extremities: 2+ right greater than left lower extremity edema. No cyanosis Limited neurological examination is without focal deficits. Pulses: Posterior tibial=1/4. Results & Data Vital Signs (Past 12 Hours) Vital Signs Temp Pulse Pulse Resp BP BP Pulse Ox 10/07/24 16:17 95 H 10/07/24 16:12 109 H 24 96 10/07/24 16:10 183/136 H 10/07/24 16:09 104 H 23 96 10/07/24 16:00 168/132 H 08/26/25 15:45 105 H 21 175/130 H 96 10/07/24 15:30 105 H 22 169/129 H 97 10/07/24 15:20 104 H 21 175/134 H 95 10/07/24 15:15 114 H 185/126 H 95 10/07/24 15:10 118 H 22 97 10/07/24 15:07 10/07/24 15:02 114 H 20 186/132 H 95 10/07/24 14:53 36.7 C 120 H 28 H 199/39 H 96 O2 Del Method O2 Flow Rate FiO2 10/07/24 16:17 10/07/24 16:12 BiPAP 10/07/24 16:10 10/07/24 16:09 BiPAP 10/07/24 16:00 10/07/24 15:45 BiPAP 10/07/24 15:30 BiPAP 10/07/24 15:20 BiPAP 10/07/24 15:15 BiPAP 10/07/24 15:10 30 10/07/24 15:07 Nasal Cannula, BiPAP 5 10/07/24 15:02 BiPAP 10/07/24 14:53 Nasal Cannula 5 Laboratory Results Cardiac Enzymes 10/07/24 Range/Units 14:57 AST 16 (13-39) U/L Troponin I High Sens 20.5 H (0-20) pg/ml B-Natriuretic Peptide 905 H (0-100) pg/ml Coagulation 10/07/24 Range/Units 14:57 PT 10.9 (9.0-12.0) Seconds APTT 31 (21-31) Seconds B-Natriuretic Peptide 905 H (0-100) pg/ml CBC 10/07/24 Range/Units 14:57 WBC 8.41 (4.8-10.8) K/ul RBC 5.20 (4.70-6.10) M/uL Hgb 15.6 (14.0-18.0) g/dl Hct 45.3 (42.0-52.0) % Plt Count 125 L (130-400) K/uL Neut # (Auto) 5.90 (1.40-6.50) K/uL Lymph # (Auto) 1.67 (1.20-3.40) K/uL [place] # (Auto) 0.64 H (0.11-0.59) K/uL Eos # (Auto) 0.13 (0.00-0.50) K/uL Baso # (Auto) 0.03 (0.00-0.20) K/uL Comprehensive Metabolic Panel 10/07/24 Range/Units 14:57 Sodium 138 (136-145) mmol/L Potassium 4.1 (3.5-5.1) mmol/L Chloride 109 H (98-107) mmol/L Carbon Dioxide 23 (21-32) mmol/L BUN 10 (6-23) mg/dl Creatinine 0.88 (0.6-1.4) mg/dl Glucose 153 H (70-99(Fasting)) mg/dl Calcium 8.8 (8.6-10.3) mg/dl AST 16 (13-39) U/L ALT 13 (7-52) U/L Alkaline Phosphatase 81 (34-104) U/L Total Protein 7.3 (6.0-8.3) gm/dl Albumin 3.8 (3.4-5.0) gm/dl Intake and Output 10/07/24 10/07/24 10/07/24 06:59 14:59 22:59 Intake Total 7.7 / 7.7 Balance 7.7 / 7.7 Intake: IV 7.7 / 7.7 Nitroglycerin/D5w 100Mcg/ml 250 7.7 / 7.7 ml @ 50 MCG/MIN 30 mls/hr IV . Q8H20M [facility] Rx#:[id number] Other: Weight 156 kg Weight Measurement Method Built in [facility] Patient Weight 10/08/24 06:59 Weight 156 kg Diagnostic Findings Chest x-ray is interpreted by the radiologist revealed cardiomegaly and AICD with evidence of congestive failure and pulmonary edema with suspect small pleural effusions. Device interrogation on July 26, 2024 demonstrated appropriate function, 5.2 years remaining longevity. 4 episodes of nonsustained ventricular tachycardia observed since last interrogation on June 13, 2024. Backup pacemaker set VVI 40 with rhythm sensed to 100% of the time. August 23, 2024 TTE: Severely dilated LV. Mild concentric LVH. Severely reduced LV systolic function. EF 15-20%. Septal dyskinesis. Grade III diastolic dysfunction, consistent iwthi markedly increased left atrial pressure. Telemetry: Sinus/sinus tachycardia, heart rates currently around 100 bpm. PG Care Time/CCT Total # of Minutes Spent Total Time Spent with Patient: Total time spent is greater than 50% in coordination of care (as documented) at patient's floor/unit and/or counseling patient. I spent a total of 70 minutes on the date of service in preparation, delivery, and documentation of the care provided to this patient excluding any time spent in the performance of separately billed services. This visit was a split-shared visit with the substantive portion of the medical decision making performed by the supervising records analyst/billing provider - Dr. Sosa. Coding Level of Care Code 68428 IN/OBS CONSULT LVL 5,80M Diagnoses Acute on chronic respiratory failure with hypoxia J96.21 Acute on chronic systolic CHF (congestive heart failure) I50.23 Hypomagnesemia E83.42 Uncontrolled hypertension I10 Hypertensive urgency I16.0 NYHA class 3 acute on chronic systolic heart failure I50.23 Non-sustained ventricular tachycardia I47.29
--- NOTE | 2024-10-07 16:42 | History & Physical Report ---
Date of Service October 07, 2024 Assessment & Plan (1) Acute on chronic systolic CHF (congestive heart failure): Plan: He has a history of nonischemic cardiomyopathy, ejection fraction 15% status post ICD Presents to the hospital with worsening shortness of breath, 15 pound weight gain, BNP>700 Chest x-ray showed evidence of pulmonary edema At home takes Lasix 80 mg daily Will start IV Lasix 80 mg twice daily Input output, daily weights Consult cardiology Upon discharge, patient benefit from change of Lasix to Bumex (2) Acute on chronic respiratory failure with hypoxia: Plan: Secondary to COPD and congestive heart failure At home uses 5 L of oxygen Currently on BiPAP (3) Type 2 diabetes mellitus with peripheral neuropathy: Plan: Follows up with endocrinology Poorly controlled type 2 diabetes His regimen was recently changed Glargine 15 units twice daily Recommend insulin 10 units with meals, will continue (4) Hypertension: Plan: Blood pressure 167/78. Pulse started on nitro drip Resume home medications (5) Morbid obesity with BMI of 50.0-59.9, adult: Plan: Patient was advised on lifestyle changes (6) NICM (nonischemic cardiomyopathy): Plan: Status post AICD Plan Admit to PCU telemetry full Code History of Present Illness Chief Complaint: sob, weight gain Primary Care Provider: Gosia Martinez MD Present 48-year-old male with a history of type 2 diabetes, morbid obesity, heart failure with reduced ejection fraction, who was transferred to the hospital by his PCP on account of worsening shortness of breath, weight gain and leg swelling. According to the patient, over the past 11 days, gained about 15 pounds noticed worsening shortness of breath. Despite taking his medications. He went to see his PCP today who rechecked his weight and asked him to come to the hopital. Of note, patient has not been following up with endocrinology service, but has previously followed [facility] with [facility] and [facility], however, he was let go due to non comlpiance Today at the PCP office, his BNP was 678 and his weight was 338 pounds, up from 320 to 30 pounds on September 26. Here in the emergency department, blood pressure was 167/132, pulse was 101, was significant respiratory distress and was subsequently put on BiPAP, chest x-ray showed evidence of cardiomegaly with AICD in place with evidence of congestive failure, pulmonary edema. Was started on nitro drip, given a dose of Lasix 80 mg, and will be admitted to the hospital for further management Allergies Allergy/AdvReac Type Severity Reaction Status Date / Time albuterol Allergy Severe proair Verified 10/07/24 13:22 "trouble taking breaths" ceftriaxone Allergy Severe SHORTNESS Verified 10/07/24 13:22 OF BREATH lidocaine Allergy Severe SHORTNESS Verified 10/07/24 13:22 OF BREATH, diaphoretic, hives mushroom Allergy Severe Anaphylaxis Verified 10/07/24 13:22 procaine Allergy Severe SHORTNESS Verified 10/07/24 13:22 OF BREATH, diaphoretic, hives amoxicillin Allergy Intermediate HIVES/FACIAL Verified 10/07/24 13:22 SWELLING clavulanic acid Allergy Intermediate HIVES/FACIAL Verified 10/07/24 13:22 SWELLING lisinopril Allergy Intermediate HIVES Verified 10/07/24 13:22 shellfish derived Allergy Unknown Unknown Verified 10/07/24 13:22 acetaminophen AdvReac Mild NAUSEA Verified 10/07/24 13:22 Fish Containing Products AdvReac Unknown Unknown Verified 10/07/24 13:22 Home Medications Medication Instructions Recorded Confirmed Type nitroglycerin 0.4 mg sublingual 0.4 mg sublingual UD PRN Chest Pain 04/24/19 History tablet (Nitrostat) aspirin 81 mg tablet,delayed 81 mg PO QAM 06/16/21 10/07/24 History release (Neisha Low Dose Aspirin) albuterol sulfate 2.5 mg/3 mL 2.5 mg inhalation Q6H PRN 12/02/21 10/07/24 History (0.083 %) solution for nebulization Shortness Of Breath Or Wheezing budesonide 0.25 mg/2 mL suspension 0.25 mg inhalation DAILY PRN 09/15/22 10/07/24 History for nebulization Shortness Of Breath blood-glucose meter (OneSeed ExpeditionsTouch #1 ea 10/12/22 10/07/24 Rx Verio Flex Meter) lancets 30 gauge (OneTouch Delica #100 ea 10/12/22 10/07/24 Rx Plus Lancet) Symbicort 160 mcg-4.5 2 inh inhalation BID #3 Inhalers 11/14/22 10/07/24 Rx mcg/actuation HFA aerosol inhaler (budesonide-formoterol) blood sugar diagnostic (OneTouch #100 ea 01/17/23 10/07/24 Rx Verio test strips) albuterol sulfate 90 mcg/actuation 1 inh inhalation QID PRN Shortness 10/12/23 10/07/24 History aerosol inhaler Of Breath Or Wheezing lidocaine 5 % topical patch 1 patch topical DAILY PRN Pain 11/03/23 10/07/24 History trolamine salicylate 10 % topical 1 applic EXT BID PRN left sided 11/06/23 10/07/24 Rx cream (Myoflex) neck pain #35.4 grams blood-glucose sensor (FreeStyle #2 ea 12/13/23 10/07/24 Rx Karla 3 Plus Sensor device) blood-glucose,forklift wheel loader,cont #1 ea 01/14/24 10/07/24 Rx (FreeStyle Karla 3 [place]) Farxiga 10 mg tablet 10 mg PO DAILY #90 tabs 04/28/24 10/07/24 Rx (dapagliflozin propanediol) insulin glargine 100 unit/mL (3 50 unit subcut BID 04/28/24 10/07/24 History mL) subcutaneous pen isosorbide mononitrate 60 mg 60 mg PO DAILY #90 tabs 04/28/24 10/07/24 Rx tablet,extended release 24 hr metoprolol succinate 100 mg 100 mg PO BID #180 tabs 04/28/24 10/07/24 Rx tablet,extended release 24 hr sacubitril 97 mg-valsartan 103 mg 1 tab PO BID #180 tabs 04/28/24 10/07/24 Rx tablet (Entresto) tirzepatide 7.5 mg/0.5 mL 7.5 mg (0.5 mL) subcut Q7D 30 days 05/09/24 10/07/24 Rx subcutaneous pen injector #2 mL Oxygen Home #1 ea 05/29/24 10/07/24 Rx spironolactone 50 mg tablet 50 mg PO BID #60 tabs 06/24/24 10/07/24 Rx furosemide 80 mg tablet 80 mg PO BID #60 tabs 06/28/24 10/07/24 Rx metoprolol succinate 25 mg 25 mg PO BID #60 tabs 07/15/24 10/07/24 Rx tablet,extended release 24 hr Portable Oxygen #1 ea 08/20/24 10/07/24 Rx magnesium oxide 400 mg (241.3 mg 400 mg PO QAM 08/22/24 10/07/24 History magnesium) tablet metolazone 2.5 mg tablet 2.5 mg PO DAILY #3 tabs 09/04/24 10/07/24 Rx atorvastatin 10 mg tablet 10 mg PO DAILY #90 tabs 09/11/24 10/07/24 Rx pen needle, diabetic 31 gauge x #500 ea 09/26/24 10/07/24 Rx 5/16" (Comfort EZ Pen [place]) alcohol swabs (Alcohol Pads) 5 pad topical DAILY #500 ea 09/29/24 10/07/24 Rx insulin lispro 100 unit/mL 10 unit (0.1 mL) subcut TID #15 mL 10/01/24 10/07/24 Rx subcutaneous pen (Humalog KwikPen (U-100) Insulin) nystatin 100,000 unit/gram topical 1 applic topical BID PRN Skin 10/07/24 10/07/24 Rx powder Irritation #60 grams triamcinolone acetonide 0.025 % 1 applic topical TID PRN rash #454 10/07/24 10/07/24 Rx topical cream grams Past Med/Surg History Problem List (Updated 10/07/24 @ 16:40 by [place] Otoole) NYHA class 3 acute on chronic systolic heart failure Uncontrolled hypertension Acute on chronic respiratory failure with hypoxia Hypomagnesemia (Acute) CHF (congestive heart failure) (Acute) Elevated troponin (Acute) Chest pain (Acute) Hypokalemia Acute on chronic systolic CHF (congestive heart failure) (Acute) Acute kidney failure Left knee pain Elevated brain natriuretic peptide (BNP) level (Acute) Hypomagnesemia (Acute) Acute exacerbation of CHF (congestive heart failure) (Acute) Venous stasis dermatitis Non-sustained ventricular tachycardia (Acute) Pulmonary edema (Acute) Lightheadedness (Acute) Dyspnea (Acute) Acute on chronic heart failure with reduced ejection fraction (HFrEF, <= 40%) Periapical abscess Pulmonary edema (Acute) Hypomagnesemia (Acute) Type 2 diabetes mellitus with peripheral neuropathy Diabetic peripheral neuropathy Non-proliferative diabetic retinopathy, both eyes Uncontrolled diabetes mellitus with hyperglycemia Normocytic anemia Poor intravenous access Chronic anticoagulation Diabetes mellitus type II, uncontrolled (Chronic) Urinary bladder incontinence Hx of local infection of skin and subcutaneous tissue Ambulatory dysfunction (Chronic) Recurrent infection of skin Pulmonary nodule V tach (Acute) Hemoptysis (Acute) Vitamin D deficiency Medical History Hypertension Type 2 diabetes mellitus with microalbuminuria HFrEF (heart failure with reduced ejection fraction) Chronic respiratory failure Chronic respiratory failure with hypoxia Type 2 diabetes mellitus with obesity Morbid obesity with BMI of 50.0-59.9, adult Hypertension Non-sustained ventricular tachycardia Obstructive sleep apnea NICM (nonischemic cardiomyopathy) Pt admitted for elective ICD. Underwent procedure without any complications monitored over night and discharged home. Combined systolic and diastolic heart failure Nonischemic cardiomyopathy, unclear etiology. Difficult to manage. Integrated into heart failure clinic. Frequent admissions for heart failure exacerbations. Echo (05/31) EF=25-30% with mod to severe global hypokinesis, basal kelsi-septal akinetic wall, LVH, RVSP elevated at 30-40mmHg, and mod dilated ascending aorta. Managed medically with ASA + BB + ARB/Neprilysin inhibitor (Entresto) + high dose furosemide (160mg BID) + metolazone (3x weekly). Considering ICD given EF. COPD (chronic obstructive pulmonary disease) Hypomagnesemia Medical non-compliance Intellectual disability Chronic dental pain Small bowel obstruction Housing instability, currently housed, at risk for homelessness Hearing loss of both ears Nonproliferative retinopathy due to secondary diabetes Dilatation of thoracic aorta Iliac aneurysm Vitamin D insufficiency Previously deficient, taking Vit D supplementation Umbilical hernia Lung nodule Fatty liver Surgical History AICD (automatic cardioverter/defibrillator) present H/O oral surgery History of carpal tunnel surgery S/P tonsillectomy History of cholecystectomy Family History Father , age 57 of an AK. Heart disease Myocardial infarction Mother , age 67 of a ruptured neck vessel Sudden Other Depression Lung disease No pertinent family history Denies family history of Ovarian cancer Prostate cancer Breast cancer Colorectal cancer Social History Smoking Status: Former smoker Tobacco Type: Cigarettes Age Started Using Tobacco: 14; Age Quit Using Tobacco: 18; packs per day: 1; Second Hand Exposure: No; Do You Dip or Chew Tobacco: No; Hx Alcohol Use: No Hx Substance Use: No Preferred Language: Slovenian Communication Ability: Effective Visual Impairment: No Limitations Hearing Ability: Normal Design Drafter Required: No Beliefs That Will Affect Care: None marital status: Current Living Situation: Family Current Living Situation Comment: Lives at home with current occupational status: unemployed How many Children do You have: 0 Feels Safe at Home: Yes Childhood Exposure to Second-Hand Smoke: Yes Dental Care, Regularly: Yes Physical Activity Frequency: Does not Exercise Seatbelt Use: never Sunscreen Use: No Assistive Devices: CPAP and Oxygen - Continuous Review of Systems Review of Systems: All systems reviewed are negative, apart from the ones contained in the history. Physical Exam Physical Exam: The patient is awake, alert and oriented 3, morbidly obese, in mild respiratory distress HEENT--PERRL, EOMI, mucous membranes and oropharynx mildly dry Neck--supple. No JVD. No bruits. Thyroid normal, trachea midline, no adeno renetta. Heart--normal S1 and S2. No murmurs, rubs or gallops. Lungs--clear bilaterally, no respiratory distress, no accessory muscle use. Abdomen--normal bowel sounds and soft. anarsaca Extremities--pitting leg edema. Dermatologic--normal skin turgor, normal color, no abnormal lymph nodes, no rash. Neurologic--cranial nerves II through XII grossly intact. Rheumatologic--normal range of motion. Psychiatric--normal affect. Results & Data Results & Data Vital Signs (Past 12 Hours) Vital Signs Temp Pulse Pulse Resp BP BP Pulse Ox 10/07/24 16:30 101 H 23 167/132 H 95 10/07/24 16:26 159/105 H 10/07/24 16:18 100 H 22 97 10/07/24 16:17 95 H 10/07/24 16:15 184/118 H 10/07/24 16:12 109 H 24 96 10/07/24 16:10 183/136 H 10/07/24 16:09 104 H 23 96 10/07/24 16:00 168/132 H 10/07/24 15:45 105 H 21 175/130 H 96 10/07/24 15:30 105 H 22 169/129 H 97 10/07/24 15:20 104 H 21 175/134 H 95 10/07/24 15:15 114 H 185/126 H 95 10/07/24 15:10 118 H 22 97 10/07/24 15:07 10/07/24 15:02 114 H 20 186/132 H 95 10/07/24 14:53 98.1 F 120 H 28 H 199/139 H 96 O2 Del Method O2 Flow Rate FiO2 10/07/24 16:30 BiPAP 10/07/24 16:26 10/07/24 16:18 BiPAP 10/07/24 16:17 10/07/24 16:15 10/07/24 16:12 BiPAP 10/07/24 16:10 10/07/24 16:09 BiPAP 10/07/24 16:00 10/07/24 15:45 BiPAP 10/07/24 15:30 BiPAP 10/07/24 15:20 BiPAP 10/07/24 15:15 BiPAP 10/07/24 15:10 30 10/07/24 15:07 Nasal Cannula, BiPAP 5 10/07/24 15:02 BiPAP 10/07/24 14:53 Nasal Cannula 5 PG Care Time/CCT Total # of Minutes Spent Total Time Spent with Patient: Total time spent is greater than 50% in coordination of care (as documented) at patient's floor/unit and/or counseling patient: Coding Level of Care Code 40433 INT INP/OBS CARE 3/75MIN Diagnoses Acute on chronic systolic CHF (congestive heart failure) I50.23 Acute on chronic respiratory failure with hypoxia J96.21 Type 2 diabetes mellitus with peripheral neuropathy E11.42 Hypertension I10 Hypertension type: unspecified Morbid obesity with BMI of 50.0-59.9, adult E66.01; Z68.43 NICM (nonischemic cardiomyopathy) I42.8 Time Spent (min) 75 (4) Hypertension Hypertension type: unspecified Qualified Code(s): I10 - Essential (primary) hypertension
[2024-10-07] MEDS: MAGNESIUM SULFATE / D5W 1 GM/100 ML BAG IV SCH ×2 (17:22→20:55)
[2024-10-07 17:45] LABS: Alanine Aminotransferase 13.0 U/L (7-52); Alkaline Phosphatase 78.0 U/L (34-104); Bilirubin,Total 1.1 mg/dl (0.2-1.0); Total Protein 7.0 gm/dl (6.0-8.3)
[2024-10-07] MEDS ORDERED: ACETAMINOPHEN 325 MG TAB PO PRN (18:20)
[2024-10-07] MEDS: BUMETANIDE 4 MG in SYRINGE 0 ML IV SCH (19:28)
[2024-10-07] MEDS: FLUTICASONE/VILANTEROL 100/25MCG 14 PUFFS/INHALER INH SCH (20:03)
[2024-10-07] MEDS: SPIRONOLACTONE 25 MG TAB PO SCH (20:03)
[2024-10-07] MEDS: METOPROLOL SUCC 50MG EXT REL TAB PO SCH (20:04)
[2024-10-07] MEDS: VALSARTAN/SACUBITRIL 103/97MG TAB PO SCH (20:04)
[2024-10-07] MEDS: METOPROLOL SUCC 25MG EXT REL TAB PO SCH (20:05)
[2024-10-07] MEDS: IBUPROFEN 200 MG TAB PO STA (20:26)
[2024-10-07] MEDS ORDERED: LANTUS PER UNIT CHARGE SC SCH (21:00)
[2024-10-07] MEDS ORDERED: FUROSEMIDE 40 MG/4 ML VIAL IV SCH (21:00)
[2024-10-07] MEDS: LANTUS PER UNIT CHARGE SC SCH (21:23)
[2024-10-07] MEDS: HEPARIN SOD 5,000 UNIT/0.5 ML VIAL SQ SCH (21:24)
[2024-10-07] MEDS: INSULIN ASPART PER UNIT CHARGE SQ SCH (21:24)
[2024-10-07 23:00] LABS: Anion Gap 6.0 (3-11); Blood Urea Nitrogen 11.0 mg/dl (6-23); Calcium 8.6 mg/dl (8.6-10.3); Carbon Dioxide 29.0 mmol/L (21-32); Chloride 103.0 mmol/L (98-107); Creatinine Clr Calc Pharmacy 111.8 ml/min; Glucose 180.0 mg/dl (70-99(Fasting)); Potassium 3.6 mmol/L (3.5-5.1); Sodium 138.0 mmol/L (136-145)
[2024-10-07] MEDS: POTASSIUM CHLORIDE 20 MEQ/15 ML UDC PO STA (23:55)
[2024-10-08] MEDS: POTASSIUM CHLORIDE CRTAB 20 MEQ TABCR PO STA (00:18)
[2024-10-08] MEDS ORDERED: Nursing to Pharmacy Communication SCH (04:00)
[2024-10-08 04:23] VITALS: TEMP 98.4
[2024-10-08 04:49] LABS: Hematocrit (blood only) 42.1 % (42.0-52.0); Hemoglobin 14.9 g/dl (14.0-18.0); Immature Granulocytes # (auto) 0.04 K/uL (0.01-0.20); Immature Granulocytes % (auto) 0.4 %; Mean Corpuscular Hemoglobin 30.7 pg (25.0-34.0); Mean Corpuscular Volume 86.6 fL (80.0-100.0); Platelet Count 131 K/uL (130-400); RDW Standard Deviation 44.3 fL (36.4-46.3); Red Blood Count 4.86 M/uL (4.70-6.10); White Blood Count 10.22 K/ul (4.8-10.8)
[2024-10-08 05:06] LABS: Anion Gap 7.0 (3-11); Blood Urea Nitrogen 11.0 mg/dl (6-23); Calcium 8.5 mg/dl (8.6-10.3); Carbon Dioxide 28.0 mmol/L (21-32); Chloride 103.0 mmol/L (98-107); Creatinine Clr Calc Pharmacy 131.9 ml/min; Glucose 115.0 mg/dl (70-99(Fasting)); Magnesium 2.0 mg/dl (1.7-2.4); Potassium 3.6 mmol/L (3.5-5.1); Sodium 138.0 mmol/L (136-145)
[2024-10-08] MEDS: POTASSIUM CHLORIDE 20 MEQ/15 ML UDC PO STA (05:48)
[2024-10-08] MEDS: MIDAZOLAM HCL 1 MG/ML 2ML VIAL ONE (06:24)
--- NOTE | 2024-10-08 07:25 | Critical Care Progress Note ---
Date of Service October 08, 2024 Assessment & Plan (1) Hypertensive emergency: (2) Acute on chronic respiratory failure with hypoxia: (3) Acute on chronic systolic CHF (congestive heart failure): (4) Pulmonary edema: (5) Type 2 diabetes mellitus with peripheral neuropathy: (6) Diabetic peripheral neuropathy: (7) Thrombocytopenia: (8) Morbid obesity with BMI of 50.0-59.9, adult: Plan Reason Critically Ill: 48-year-old male admitted to the hospital for worsening shortness of breath. Was on nitro drip and the ER sent to ICU for further management Past medical history: Diabetes type 2, morbid obesity, MARIELENA on BiPAP, systolic CHF with AICD Neuro - [facility] ICU: Negative Cardiac - 2D echo 08/23/2024: EF 15-20%, grade 3 diastolic dysfunction, severe global hypokinesis of the left ventricle, septal akinesis, RV normal in size and with mildly reduced function -- Acute exacerbation of systolic and diastolic CHF BNP 905 Continue with aggressive diuresis Patient's regimen at home is the following Entresto, spironolactone 50 mg twice daily, metoprolol succinate 125 mg twice daily Metolazone 2.5 mg daily Lasix 80 mg twice daily --Hypertensive emergency --> resolved Systolic blood pressure on presentation was 199 with diastolic 135 Continue with nitro drip to decrease MAP by 25%. Aim for systolic blood pressure 150 in the first 24 hours --Elevated troponin Likely type II TN Respiratory - -- Acute on chronic hypoxic respiratory failure Likely secondary to CHF exacerbation with pulmonary edema BiPAP nightly and as needed shortness of breath Continue with aggressive diuresis --Patient carries a history of COPD, likely has asthma-COPD overlap syndrome Only [id number] smoking history, quit at the age of 19 Does not seem to be bronchospastic On Symbicort 160 at home --History of MARIELENA Supposed to be on BiPAP 16/8 cm Noncompliant GI - -- No acute issues RENAL/LYTES - -- No acute issues Monitor BUNs/creatinine Avoid nephrotoxic medication ENDO - -- Diabetes type 2 ICU hypoglycemia protocol HEME - -- Chronic thrombocytopenia Continue to monitor ID - -- No clear source of infection --Prophylaxis VTE: Heparin GI: None Lines: Peripheral Diet: Cardiac, low-sodium Plan: In/out: -5.3 L, urine output 6925 Nitroglycerin has been off since 2:30 AM today Potassium and phosphorus being replaced. Decrease Bumex to 3 mg every 12 Continue with metolazone. Needs education regarding salt restriction in his diet. Plan from cardiology is to change metoprolol succinate to Coreg. Will defer it to primary team and cardiology Hemodynamically stable to be downgraded to the medical floor I spent more than 50 minutes looking in the chart, images, discussing the plan of care with the patient, RN as well as primary team This includes time spent evaluating patient, direct bedside care, chart review, placing orders, interpretation of diagnostic studies, discussion with consultants, patient, and family members, as well as other required patient management activities. This time is exclusive of all separately billable procedures, and teaching time and separate from and in addition to any other critical care service time. Admission and Anticipated Discharge Date Admission Date: October 07, 2024 Subjective Patient seen and examined at bedside. No acute distress, no acute events overnight Blood pressure was 150/91 at the time of examination, saturation was 97% on 5 L nasal cannula. I went down to 3 L He stated that he is feeling better compared to before. Diuresing well Denied any chest pain No shortness of breath No nausea or vomiting Nitroglycerin drip has been off since 2:30 AM Review of Systems 2 Review of Systems: All systems reviewed & are unremarkable except as noted in Subjective Physical Exam 2 Physical Exam: Constitutional: No acute distress HEENT: EOMI, PERRLA Respiratory system: Decreased air entry bilaterally, no wheeze, no rhonchi, minimal crackles bilaterally CVS: S1-S2 positive, no murmurs or gallops Abdomen: Soft, nontender, nondistended, positive bowel sounds x4, obese Extremities: +2 pulses bilaterally radialis/ dorsalis pedis, no cyanosis, +2 pitting edema bilateral lower extremity Neuro: Awake alert oriented x3 Psych: Normal mood and affect G/U: No [place] Skin: no rashes, warm and dry Lymphatic: no cervical or axillary lymphadenopathy Results & Data Results & Data Vital Signs (Past 12 Hours) Vital Signs Temp Pulse Resp BP Pulse Ox Pulse Ox O2 Del Method 10/08/24 06:00 74 23 153/99 H 96 Nasal Cannula 10/08/24 05:00 78 20 157/96 H 96 Nasal Cannula 10/08/24 04:30 73 22 125/84 94 Nasal Cannula 10/08/24 04:00 36.9 C 72 22 137/90 95 Nasal Cannula 10/08/24 03:30 71 22 141/104 H 95 Nasal Cannula 10/08/24 03:01 76 14 154/100 H 97 Nasal Cannula 10/08/24 02:45 84 23 102/80 95 Nasal Cannula 10/08/24 02:32 78 20 92/51 L 95 Nasal Cannula 10/08/24 02:16 78 19 145/86 H 97 Nasal Cannula 10/08/24 02:00 79 20 144/99 H 96 Nasal Cannula 10/08/24 01:30 95 H 17 149/108 H 95 Nasal Cannula 10/08/24 01:15 81 23 147/97 H 93 Nasal Cannula 10/08/24 01:01 80 17 142/91 H 93 Nasal Cannula 10/08/24 00:45 75 21 145/82 H 93 Nasal Cannula 10/08/24 00:30 77 24 135/81 93 Nasal Cannula 10/08/24 00:15 88 18 141/86 H 95 Nasal Cannula 10/08/24 00:00 36.5 C 79 17 125/96 93 Nasal Cannula 10/07/24 23:45 77 24 136/95 95 Nasal Cannula 10/07/24 23:15 89 22 143/98 H 95 Nasal Cannula 10/07/24 23:00 85 24 142/97 H 96 Nasal Cannula 10/07/24 22:45 79 21 135/83 96 Nasal Cannula 10/07/24 22:27 84 17 157/100 H 93 Nasal Cannula 10/07/24 22:00 92 H 22 159/96 H 95 Nasal Cannula 10/07/24 21:45 89 22 151/92 H 94 Nasal Cannula 10/07/24 21:31 100 H 20 153/96 H 95 Nasal Cannula 10/07/24 21:15 90 22 167/117 H 97 Nasal Cannula 10/07/24 21:00 95 H 22 158/93 H 95 Nasal Cannula 10/07/24 20:59 Nasal Cannula 10/07/24 20:57 89 23 152/102 H 93 Nasal Cannula 10/07/24 20:31 98 H 24 166/114 H 96 Nasal Cannula 10/07/24 20:30 96 H 22 172/87 H 95 Nasal Cannula 10/07/24 20:00 36.8 C 100 H 15 152/76 H 93 Nasal Cannula 10/07/24 19:49 93 08/26/25 19:46 94 H 22 169/91 H 93 Nasal Cannula 10/07/24 19:30 95 H 21 147/94 H 94 Nasal Cannula O2 Del Method O2 Flow Rate O2 Flow Rate 10/08/24 06:00 4 10/08/24 05:00 4 10/08/24 04:30 4 10/08/24 04:00 4 10/08/24 03:30 4 10/08/24 03:01 4 10/08/24 02:45 4 10/08/24 02:32 4 10/08/24 02:16 4 10/08/24 02:00 4 10/08/24 01:30 4 10/08/24 01:15 4 10/08/24 01:01 4 10/08/24 00:45 4 10/08/24 00:30 4 10/08/24 00:15 4 10/08/24 00:00 4 10/07/24 23:45 4 10/07/24 23:15 4 10/07/24 23:00 4 10/07/24 22:45 4 10/07/24 22:27 4 10/07/24 22:00 4 10/07/24 21:45 4 10/07/24 21:31 4 10/07/24 21:15 4 10/07/24 21:00 4 10/07/24 20:59 4 10/07/24 20:57 4 10/07/24 20:31 4 10/07/24 20:30 4 10/07/24 20:00 4 10/07/24 19:49 Nasal Cannula 4 10/07/24 19:46 4 10/07/24 19:30 4 Laboratory Results 10/08/24 04:25 10/08/24 04:25 Coding Level of Care Code 05456 SUB INP/OBS CARE 3/50MIN Diagnoses Hypertensive emergency I16.1 Acute on chronic respiratory failure with hypoxia J96.21 Acute on chronic systolic CHF (congestive heart failure) I50.23 Pulmonary edema J81.1 Type 2 diabetes mellitus with peripheral neuropathy E11.42 Diabetic peripheral neuropathy E11.42 Thrombocytopenia D69.6 Morbid obesity with BMI of 50.0-59.9, adult E66.01; Z68.43
[2024-10-08] MEDS: MAGNESIUM OXIDE 400 MG TAB PO SCH (08:04)
[2024-10-08] MEDS: ISOSORBIDE MONO EXTENDED REL 60 MG TABCR PO SCH (08:04)
[2024-10-08] MEDS: ASPIRIN 81 MG ECTAB PO SCH (08:06)
[2024-10-08] MEDS: ATORVASTATIN 10 MG TAB PO SCH (08:07)
[2024-10-08] MEDS: BUMETANIDE 3 MG in SYRINGE 0 ML IV SCH (09:05)
--- NOTE | 2024-10-08 10:45 | Hospitalist Progress Note ---
Date of Service October 08, 2024 Assessment & Plan (1) Acute on chronic systolic CHF (congestive heart failure): Plan: He has a history of nonischemic cardiomyopathy, ejection fraction 15% status post ICD Presents to the hospital with worsening shortness of breath, 15 pound weight gain, BNP>700 Chest x-ray showed evidence of pulmonary edema At home takes Lasix 80 mg daily Started IV Lasix 80 mg twice daily, but changed to IV Bumex 3mg BID He is diuresing well, in 5L negative fluid balance in the past 24 hrs continue to monitor Input output, daily weights Appreciate cardiology and Intensivists (2) Acute on chronic respiratory failure with hypoxia: Plan: Secondary to COPD and congestive heart failure At home uses 5 L of oxygen wean as tolerated (3) Type 2 diabetes mellitus with peripheral neuropathy: Plan: Follows up with endocrinology Poorly controlled type 2 diabetes His regimen was recently changed Glargine 15 units twice daily Recommend insulin 10 units with meals, will continue (4) Hypertension: Plan: Blood pressure 165/117 Nitro drip has been stopped continue Entresto and Spironolactone (5) Morbid obesity with BMI of 50.0-59.9, adult: Plan: Patient was advised on lifestyle changes (6) NICM (nonischemic cardiomyopathy): Plan: Status post AICD Plan Admit to PCU telemetry full Code Admission and Anticipated Discharge Date Admission Date: October 07, 2024 Subjective Patient seen and examined this morning, feels somewhat better, states his leg swelling proved shortness of breath somewhat improved. Review of Systems Review of Systems: All systems reviewed are negative, apart from the ones contained in the history. Physical Exam Physical Exam: The patient is awake, alert and oriented 3, morbidly obese, in mild respiratory distress HEENT--PERRL, EOMI, mucous membranes and oropharynx mildly dry Neck--supple. No JVD. No bruits. Thyroid normal, trachea midline, no adenopathy. Heart--normal S1 and S2. No murmurs, rubs or gallops. Lungs--clear bilaterally, no respiratory distress, no accessory muscle use. Abdomen--normal bowel sounds and soft. an[place]aca Extremities--pitting leg edema. Dermatologic--normal skin turgor, normal color, no abnormal lymph nodes, no rash. Neurologic--cranial nerves II through XII grossly intact. Rheumatologic--normal range of motion. Psychiatric--normal affect. Results & Data Results & Data Vital Signs (Past 12 Hours) Vital Signs Temp Pulse Resp BP Pulse Ox O2 Del Method O2 Flow Rate 10/08/24 08:00 78 10/08/24 07:44 Nasal Cannula 4 10/08/24 07:31 165/117 H 10/08/24 07:12 78 17 92 10/08/24 07:09 81 94 Nasal Cannula 4 10/08/24 07:01 169/103 H 10/08/24 06:57 84 24 94 Nasal Cannula 4 10/08/24 06:39 81 25 H 97 Nasal Cannula 4 10/08/24 06:30 138/105 H 10/08/24 06:24 77 17 96 Nasal Cannula 4 10/08/24 06:00 74 23 153/99 H 96 Nasal Cannula 4 10/08/24 05:00 78 20 157/96 H 96 Nasal Cannula 4 10/08/24 04:30 73 22 125/84 94 Nasal Cannula 4 10/08/24 04:00 98.4 F 72 22 137/90 95 Nasal Cannula 4 10/08/24 03:30 71 22 141/104 H 95 Nasal Cannula 4 10/08/24 03:01 76 14 154/100 H 97 Nasal Cannula 4 10/08/24 02:45 84 23 102/80 95 Nasal Cannula 4 10/08/24 02:32 78 20 92/51 L 95 Nasal Cannula 4 10/08/24 02:16 78 19 145/86 H 97 Nasal Cannula 4 10/08/24 02:00 79 20 144/99 H 96 Nasal Cannula 4 10/08/24 01:30 95 H 17 149/108 H 95 Nasal Cannula 4 10/08/24 01:15 81 23 147/97 H 93 Nasal Cannula 4 10/08/24 01:01 80 17 142/91 H 93 Nasal Cannula 4 10/08/24 00:45 75 21 145/82 H 93 Nasal Cannula 4 10/08/24 00:30 77 24 135/81 93 Nasal Cannula 4 10/08/24 00:15 88 18 141/86 H 95 Nasal Cannula 4 10/08/24 00:00 97.7 F 79 17 125/96 93 Nasal Cannula 4 10/07/24 23:45 77 24 136/95 95 Nasal Cannula 4 10/07/24 23:15 89 22 143/98 H 95 Nasal Cannula 4 10/07/24 23:00 85 24 142/97 H 96 Nasal Cannula 4 10/07/24 22:45 79 21 135/83 96 Nasal Cannula 4 PG Care Time/CCT Total # of Minutes Spent Total Time Spent with Patient: Total time spent is greater than 50% in coordination of care (as documented) at patient's floor/unit and/or counseling patient: Coding Level of Care Code 75751 SUB INP/OBS CARE 2/35MIN Diagnoses Acute on chronic systolic CHF (congestive heart failure) I50.23 Acute on chronic respiratory failure with hypoxia J96.21 Type 2 diabetes mellitus with peripheral neuropathy E11.42 Hypertension I10 Hypertension type: unspecified Morbid obesity with BMI of 50.0-59.9, adult E66.01; Z68.43 NICM (nonischemic cardiomyopathy) I42.8 Time Spent (min) 35 (4) Hypertension Hypertension type: unspecified Qualified Code(s): I10 - Essential (primary) hypertension
--- NOTE | 2024-10-08 11:53 | Cardiology Progress Note ---
Date of Service October 08, 2024 Assessment & Plan (1) Acute on chronic respiratory failure with hypoxia: (2) Acute on chronic systolic CHF (congestive heart failure): (3) Hypomagnesemia: (4) Uncontrolled hypertension: (5) Hypertensive urgency: (6) NYHA class 3 acute on chronic systolic heart failure: (7) Non-sustained ventricular tachycardia: Plan 48 Y M Admitted on 10/07/2024 with acute on chronic dyspnea, worsening fluid retention, weight gain - acute hypoxic respiratory failure secondary to acute decompensated systolic and diastolic congestive heart failure, uncontrolled hypertension. Acute HFrEF HTN - accelerated Severe NICM - LVEF 15-20% (08/23/2024); Catheterization in [place], [place] on August 27, 2017 with right dominant coronary anatomy without atherosclerotic changes or significant coronary artery disease. Morbid Obesity Noncompliance DM S/P single chamber [employer] ICD implantation on 04/08/2019 correct and f/u electrolytes f/u renal function IV diuresis Off IV NTG GDMT for HFrEF as tolerated adjust anti-HTN meds keeping systolic BP between 100-140 mmHg increase metoprolol succinate dose continue spironolactone, Entresto, and aspirin 81 mg/day. avoid hypovolemia keep patient euvolemic DVT prophylaxis keep LE elevated when sitting 1.5 L / 24 hr fluid restriction strict I&Os salt restriction counseling Transfer to tele floor Admission and Anticipated Discharge Date Admission Date: October 07, 2024 Subjective Patient on exam is lying in bed in NAD; no c/o cp, sob, palpitations, dizziness, LOC; feels better; decreased LE swelling; breathing is back to baseline Review of Systems Review of Systems: Complete Review of Systems is as stated above, negative, or noncontributory. Physical Exam Physical Exam: General:A&Ox3. HENT: Normocephalic. Atraumatic. Eyes: PER. Conjunctiva pink, sclera clear. Neck: JVD. Heart: S1S2; + soft sys murmur Lungs: decreased BS at bases, no wheezing; no rales Abdomen:obese, +BS. Soft. Nontender. No organomegaly. Extremities: 1+ right greater than left lower extremity edema. No cyanosis Limited neurological examination is without focal deficits. Results & Data Vital Signs (Past 12 Hours) Vital Signs Temp Pulse Resp BP Pulse Ox O2 Del Method O2 Flow Rate 10/08/24 08:00 78 08/27/25 07:44 Nasal Cannula 4 10/08/24 07:31 165/117 H 10/08/24 07:12 78 17 92 10/08/24 07:09 81 94 Nasal Cannula 4 10/08/24 07:01 169/103 H 10/08/24 06:57 84 24 94 Nasal Cannula 4 10/08/24 06:39 81 25 H 97 Nasal Cannula 4 10/08/24 06:30 138/105 H 10/08/24 06:24 77 17 96 Nasal Cannula 4 10/08/24 06:00 74 23 153/99 H 96 Nasal Cannula 4 10/08/24 05:00 78 20 157/96 H 96 Nasal Cannula 4 10/08/24 04:30 73 22 125/84 94 Nasal Cannula 4 10/08/24 04:00 36.9 C 72 22 137/90 95 Nasal Cannula 4 10/08/24 03:30 71 22 141/104 H 95 Nasal Cannula 4 10/08/24 03:01 76 14 154/100 H 97 Nasal Cannula 4 10/08/24 02:45 84 23 102/80 95 Nasal Cannula 4 10/08/24 02:32 78 20 92/51 L 95 Nasal Cannula 4 10/08/24 02:16 78 19 145/86 H 97 Nasal Cannula 4 10/08/24 02:00 79 20 144/99 H 96 Nasal Cannula 4 10/08/24 01:30 95 H 17 149/108 H 95 Nasal Cannula 4 10/08/24 01:15 81 23 147/97 H 93 Nasal Cannula 4 10/08/24 01:01 80 17 142/91 H 93 Nasal Cannula 4 10/08/24 00:45 75 21 145/82 H 93 Nasal Cannula 4 10/08/24 00:30 77 24 135/81 93 Nasal Cannula 4 10/08/24 00:15 88 18 141/86 H 95 Nasal Cannula 4 10/08/24 00:00 36.5 C 79 17 125/96 93 Nasal Cannula 4 10/07/24 23:45 77 24 136/95 95 Nasal Cannula 4 Laboratory Results Cardiac Enzymes 10/07/24 10/07/24 Range/Units 14:57 17:09 AST 16 15 (13-39) U/L Troponin I High Sens 20.5 H 22.6 H (0-20) pg/ml B-Natriuretic Peptide 905 H (0-100) pg/ml Coagulation 10/07/24 Range/Units 14:57 PT 10.9 (9.0-12.0) Seconds APTT 31 (21-31) Seconds B-Natriuretic Peptide 905 H (0-100) pg/ml CBC 10/07/24 10/08/24 Range/Units 14:57 04:25 WBC 8.41 10.22 (4.8-10.8) K/ul RBC 5.20 4.86 (4.70-6.10) M/uL Hgb 15.6 14.9 (14.0-18.0) g/dl Hct 45.3 42.1 (42.0-52.0) % Plt Count 125 L 131 (130-400) K/uL Neut # (Auto) 5.90 7.11 H (1.40-6.50) K/uL Lymph # (Auto) 1.67 2.14 (1.20-3.40) K/uL Deuel # (Auto) 0.64 H 0.76 H (0.11-0.59) K/uL Eos # (Auto) 0.13 0.14 (0.00-0.50) K/uL Baso # (Auto) 0.03 0.03 (0.00-0.20) K/uL Comprehensive Metabolic Panel 10/07/24 10/07/24 10/07/24 Range/Units 14:57 17:09 22:20 Sodium 138 138 (136-145) mmol/L Potassium 4.1 3.6 (3.5-5.1) mmol/L Chloride 109 H 103 (98-107) mmol/L Carbon Dioxide 23 29 (21-32) mmol/L BUN 10 11 (6-23) mg/dl Creatinine 0.88 1.20 D (0.6-1.4) mg/dl Glucose 153 H 180 H (70-99(Fasting)) mg/dl Calcium 8.8 8.6 (8.6-10.3) mg/dl Direct Bilirubin 0.2 (0-0.2) mg/dl AST 16 15 (13-39) U/L ALT 13 13 (7-52) U/L Alkaline Phosphatase 81 78 (34-104) U/L Total Protein 7.3 7.0 (6.0-8.3) gm/dl Albumin 3.8 3.6 (3.4-5.0) gm/dl 10/08/24 Range/Units 04:25 Sodium 138 (136-145) mmol/L Potassium 3.6 (3.5-5.1) mmol/L Chloride 103 (98-107) mmol/L Carbon Dioxide 28 (21-32) mmol/L BUN 11 (6-23) mg/dl Creatinine 1.01 (0.6-1.4) mg/dl Glucose 115 H (70-99(Fasting)) mg/dl Calcium 8.5 L (8.6-10.3) mg/dl Direct Bilirubin (0-0.2) mg/dl AST (13-39) U/L ALT (7-52) U/L Alkaline Phosphatase (34-104) U/L Total Protein (6.0-8.3) gm/dl Albumin (3.4-5.0) gm/dl Intake and Output 10/07/24 10/08/24 10/08/24 22:59 06:59 14:59 Intake Total 865.533 / 1537.133 671.60 / 1537.133 Output Total 5625 / 6925 1300 / 6925 2800 / 2800 Balance -4759.467 / -5387.867 -628.40 / -5387.867 -2800 / -2800 Intake: IV 625.533 / 817.133 191.60 / 817.133 Magnesium Sulfate / D5w 1 gm In 283.333 / 383.333 100 / 383.333 100 ml @ 50 mls/hr IV Q2H SUKHWINDER Rx#:[id number] Nitroglycerin/D5w 100Mcg/ml 250 342.20 / 433.80 91.60 / 433.80 ml @ 0 MCG/MIN IV .Q0M SUKHWINDER Rx# :[id number] Oral 240 / 720 480 / 720 Output: Urine 5625 / 6925 1300 / 6925 2800 / 2800 # Bowel Movements 0 / 0 0 / 0 Other: Weight 153.5 kg 151.8 kg Weight Measurement Method Built in [facility] Built in [facility] Diagnostic Findings 10/12/23 ECHOCARDIOGRAM Interpretation Summary Technically difficult study. The ultrasound animation Definity was administered to improve delineation of the endocardial border. The left ventricle is severely dilated. There is severe global hypokinesis of the left ventricle. Left ventricular systolic function is severely reduced. Left Ventricular Ejection Fraction = 15-20%. There is mild mitral regurgitation. Compared to the previous study dated 04/06/2023, there has been no significant interval change. Medications Administered Home Medications Medication Instructions Recorded Confirmed Last Taken nitroglycerin 0.4 mg sublingual 0.4 mg sublingual UD PRN Chest Pain 04/24/19 10/07/24 02/27/22 tablet (Nitrostat) aspirin 81 mg tablet,delayed 81 mg PO QAM 06/16/21 10/07/24 09/19/24 09:00 release (Neisha Low Dose Aspirin) albuterol sulfate 2.5 mg/3 mL 2.5 mg inhalation Q6H PRN 12/02/21 10/07/24 09/19/24 09:00 (0.083 %) solution for nebulization Shortness Of Breath Or Wheezing budesonide 0.25 mg/2 mL suspension 0.25 mg inhalation DAILY PRN 09/15/22 10/07/24 Unknown for nebulization Shortness Of Breath blood-glucose meter (ÜberResearchTouch #1 ea 10/12/22 10/07/24 Unknown Verio Flex Meter) lancets 30 gauge (OneTouch Delica #100 ea 10/12/22 10/07/24 Unknown Plus Lancet) Symbicort 160 mcg-4.5 2 inh inhalation BID #3 Inhalers 11/14/22 10/07/24 06/26/24 08:00 mcg/actuation HFA aerosol inhaler (budesonide-formoterol) blood sugar diagnostic (OneTouch #100 ea 01/17/23 10/07/24 Unknown Verio test strips) albuterol sulfate 90 mcg/actuation 1 inh inhalation QID PRN Shortness 10/12/23 10/07/24 Unknown aerosol inhaler Of Breath Or Wheezing lidocaine 5 % topical patch 1 patch topical DAILY PRN Pain 11/03/23 10/07/24 Unknown trolamine salicylate 10 % topical 1 applic EXT BID PRN left sided 11/06/23 10/07/24 Unknown cream (Myoflex) neck pain #35.4 grams blood-glucose sensor (FreeStyle #2 ea 12/13/23 10/07/24 Unknown Karla 3 Plus Sensor device) blood-glucose,network controller,cont #1 ea 01/14/24 10/07/24 Unknown (FreeStyle Karla 3 [place]) Farxiga 10 mg tablet 10 mg PO DAILY #90 tabs 04/28/24 10/07/24 09/19/24 09:00 (dapagliflozin propanediol) insulin glargine 100 unit/mL (3 50 unit subcut BID 04/28/24 10/07/24 09/19/24 09:00 mL) subcutaneous pen isosorbide mononitrate 60 mg 60 mg PO DAILY #90 tabs 04/28/24 10/07/24 09/19/24 09:00 tablet,extended release 24 hr metoprolol succinate 100 mg 100 mg PO BID #180 tabs 04/28/24 10/07/24 09/19/24 16:30 tablet,extended release 24 hr sacubitril 97 mg-valsartan 103 mg 1 tab PO BID #180 tabs 04/28/24 10/07/24 09/19/24 16:30 tablet (Entresto) tirzepatide 7.5 mg/0.5 mL 7.5 mg (0.5 mL) subcut Q7D 30 days 05/09/24 10/07/24 09/17/24 09:00 subcutaneous pen injector #2 mL Oxygen Home #1 ea 05/29/24 10/07/24 Unknown spironolactone 50 mg tablet 50 mg PO BID #60 tabs 06/24/24 10/07/24 09/19/24 16:30 furosemide 80 mg tablet 80 mg PO BID #60 tabs 06/28/24 10/07/24 09/19/24 09:00 metoprolol succinate 25 mg 25 mg PO BID #60 tabs 07/15/24 10/07/24 09/19/24 16:30 tablet,extended release 24 hr Portable Oxygen #1 ea 08/20/24 10/07/24 Unknown magnesium oxide 400 mg (241.3 mg 400 mg PO QAM 08/22/24 10/07/24 09/19/24 09:00 magnesium) tablet metolazone 2.5 mg tablet 2.5 mg PO DAILY #3 tabs 09/04/24 10/07/24 09/19/24 08:00 atorvastatin 10 mg tablet 10 mg PO DAILY #90 tabs 09/11/24 10/07/24 09/19/24 09:00 pen needle, diabetic 31 gauge x #500 ea 09/26/24 10/07/24 Unknown 5/16" (Comfort EZ Pen [place]u) alcohol swabs (Alcohol Pads) 5 pad topical DAILY #500 ea 09/29/24 10/07/24 Unknown insulin lispro 100 unit/mL 10 unit (0.1 mL) subcut TID #15 mL 10/01/24 10/07/24 Unknown subcutaneous pen (Humalog KwikPen (U-100) Insulin) nystatin 100,000 unit/gram topical 1 applic topical BID PRN Skin 10/07/24 10/07/24 Unknown powder Irritation #60 grams triamcinolone acetonide 0.025 % 1 applic topical TID PRN rash #454 10/07/24 10/07/24 Unknown topical cream grams Active Medications Generic Name Dose Route Start Last Admin Trade Name Freq PRN Reason Stop Dose Admin Aspirin 81 mg 10/08/24 09:00 10/08/24 08:06 Aspirin 81 Mg Ectab PO 11/07/24 08:59 81 mg QAM SUKHWINDER Administration Atorvastatin Calcium 10 mg 10/08/24 09:00 10/08/24 08:07 Atorvastatin 10 Mg Tab PO 11/07/24 08:59 10 mg DAILY SUKHWINDER Administration Fluticasone/Vilanterol 1 puffs 10/07/24 21:00 10/08/24 08:04 Fluticasone/Vilanterol 100/25mcg 14 Puffs/Inhaler INH 11/06/24 20:59 1 puffs DAILY SUKHWINDER Administration Protocol Heparin Sodium (Porcine) 5,000 units 10/07/24 22:00 10/08/24 05:48 Heparin Sod 5,000 Unit/0.5 Ml Vial SQ 11/06/24 21:59 Not Given Q8 SUKHWINDER Bumetanide 3 mg/ Syringe 12 mls @ 4 mls/min 10/08/24 09:00 10/08/24 09:05 IV 11/07/24 08:59 4 mls/min BID@0900,1700 SUKHWINDER Administration Insulin Aspart 0 units 10/07/24 21:00 10/08/24 08:03 Insulin Aspart Per Unit Charge SQ 11/06/24 20:59 6 units ACHS SUKHWINDER Administration Insulin Glargine 50 units 10/07/24 21:00 10/08/24 08:03 Lantus Per Unit Charge SC 11/06/24 20:59 50 units BID SUKHWINDER Administration Isosorbide Mononitrate 60 mg 10/08/24 09:00 10/08/24 08:04 Isosorbide Deuel Extended Rel 60 Mg Tabcr PO 11/07/24 08:59 60 mg DAILY SUKHWINDER Administration Magnesium Oxide 400 mg 10/08/24 09:00 10/08/24 08:04 Magnesium Oxide 400 Mg Tab PO 11/07/24 08:59 400 mg QAM SUKHWINDER Administration Metolazone 2.5 mg 10/08/24 09:00 10/08/24 08:06 Metolazone 2.5 Mg Tablet PO 11/07/24 08:59 2.5 mg DAILY SUKHWINDER Administration Sacubitril/Valsartan 1 tab 10/07/24 21:00 10/08/24 08:06 Valsartan/Sacubitril 103/97mg Tab PO 11/06/24 20:59 1 tab BID SUKHWINDER Administration Spironolactone 50 mg 10/07/24 21:00 10/08/24 08:06 Spironolactone 25 Mg Tab PO 11/06/24 20:59 50 mg BID SUKHWINDER Administration PG Care Time/CCT Total # of Minutes Spent Total Time Spent with Patient: Total time spent is greater than 50% in coordination of care (as documented) at patient's floor/unit and/or counseling patient: Coding Level of Care Code 56446 SUB INP/OBS CARE 3/50MIN Diagnoses Acute on chronic respiratory failure with hypoxia J96.21 Acute on chronic systolic CHF (congestive heart failure) I50.23 Hypomagnesemia E83.42 Uncontrolled hypertension I10 Hypertensive urgency I16.0 NYHA class 3 acute on chronic systolic heart failure I50.23 Non-sustained ventricular tachycardia I47.29
[2024-10-08] MEDS: MAGNESIUM SULFATE / D5W 1 GM/100 ML BAG IV SCH (12:00)
[2024-10-08 15:27] LABS: Anion Gap 7.0 (3-11); Blood Urea Nitrogen 15.0 mg/dl (6-23); Calcium 9.2 mg/dl (8.6-10.3); Carbon Dioxide 30.0 mmol/L (21-32); Chloride 99.0 mmol/L (98-107); Creatinine Clr Calc Pharmacy 120.0 ml/min; Glucose 129.0 mg/dl (70-99(Fasting)); Potassium 4.0 mmol/L (3.5-5.1); Sodium 136.0 mmol/L (136-145)
[2024-10-08 17:55] VITALS: RESP 21; O2SAT 92
[2024-10-08 18:40] VITALS: BP 151/99; PULSE 103
[2024-10-08] MEDS ORDERED: POTASSIUM CHLORIDE 20 MEQ/15 ML UDC PO SCH (21:00)
[2024-10-08] MEDS ORDERED: METOPROLOL SUCC 50MG EXT REL TAB PO SCH (21:00)
--- NOTE | 2024-10-09 10:34 | Discharge Summary ---
Date of Service October 09, 2024 Admission HPI Per Admitting Provider Present 48-year-old male with a history of type 2 diabetes, morbid obesity, heart failure with reduced ejection fraction, who was transferred to the hospital by his PCP on account of worsening shortness of breath, weight gain and leg swelling. According to the patient, over the past 11 days, gained about 15 pounds noticed worsening shortness of breath. Despite taking his medications. He went to see his PCP today who rechecked his weight and asked him to come to the hopital. Of note, patient has not been following up with endocrinology service, but has previously followed up with [facility], however, he was let go due to non comlpiance Today at the PCP office, his BNP was 678 and his weight was 338 pounds, up from 320 to 30 pounds on September 26. Here in the emergency department, blood pressure was 167/132, pulse was 101, was significant respiratory distress and was subsequently put on BiPAP, chest x-ray showed evidence of cardiomegaly with AICD in place with evidence of congestive failure, pulmonary edema. Was started on nitro drip, given a dose of Lasix 80 mg, and will be admitted to the hospital for further management Patient left AGAINST MEDICAL ADVICE Discharge Data Consultations 10/07/24 15:39 ED Decision to Admit Stat 10/07/24 15:50 Consult Cardiology Routine 10/07/24 16:46 Consult Monitor Tech Stat 10/07/24 17:00 Consult Monitor Tech Routine Hospital Course (1) Acute on chronic systolic CHF (congestive heart failure): He has a history of nonischemic cardiomyopathy, ejection fraction 15% status post ICD Presents to the hospital with worsening shortness of breath, 15 pound weight gain, BNP>700 Chest x-ray showed evidence of pulmonary edema At home takes Lasix 80 mg daily Started IV Lasix 80 mg twice daily, but changed to IV Bumex 3mg BID He is diuresing well, in 5L negative fluid balance in the past 24 hrs continue to monitor Input output, daily weights Appreciate cardiology and Intensivists (2) Acute on chronic respiratory failure with hypoxia: Secondary to COPD and congestive heart failure At home uses 5 L of oxygen wean as tolerated (3) Type 2 diabetes mellitus with peripheral neuropathy: Follows up with endocrinology Poorly controlled type 2 diabetes His regimen was recently changed Glargine 15 units twice daily Recommend insulin 10 units with meals, will continue (4) Hypertension: Blood pressure 165/117 Nitro drip has been stopped continue Entresto and Spironolactone (5) Morbid obesity with BMI of 50.0-59.9, adult: Patient was advised on lifestyle changes (6) NICM (nonischemic cardiomyopathy): Status post AICD Plan Admit to PCU telemetry full Code Discharge Instructions He left AGAINST MEDICAL ADVICE Coding Level of Care Code None Diagnoses Acute on chronic systolic CHF (congestive heart failure) I50.23 Acute on chronic respiratory failure with hypoxia J96.21 Type 2 diabetes mellitus with peripheral neuropathy E11.42 Hypertension I10 Hypertension type: unspecified Morbid obesity with BMI of 50.0-59.9, adult E66.01; Z68.43 NICM (nonischemic cardiomyopathy) I42.8 Time Spent (min) 10
--- NOTE | 2024-10-09 18:18 | Electrocardiogram Report ---
Test Reason : Blood Pressure : */* mmHG Vent. Rate : 119 BPM Atrial Rate : 119 BPM P-R Int : 160 ms QRS Dur : 114 ms QT Int : 348 ms P-R-T Axes : 15 -61 96 degrees QTcB Int : 489 ms Sinus tachycardia with Fusion complexes Possible Left atrial enlargement Left axis deviation Minimal voltage criteria for LVH, may be normal variant ( [place] product ) T wave abnormality, consider lateral ischemia Possible Septal infarct Abnormal ECG When compared with ECG of 19-Sep-2024 18:57, Fusion complexes are now Present Incomplete right bundle branch block is no longer Present Confirmed by Abraham Rosen ([id number]) on 10/09/2024 6:18:25 PM Referred By: REFERRED SELF Confirmed By: Abraham Rosen
== END 2024-10-08 19:00 | disposition left against medical advice (07) | DRG 280 ==
LOC: ED 14:46 → 1E 16:18

== ENCOUNTER 2024-11-29 23:36 | Observation (INO) ==
[2024-11-30 00:23] LABS: Hematocrit (blood only) 45.6 % (42.0-52.0); Hemoglobin 16.0 g/dl (14.0-18.0); Immature Granulocytes # (auto) 0.05 K/uL (0.01-0.20); Immature Granulocytes % (auto) 0.4 %; Mean Corpuscular Hemoglobin 30.8 pg (25.0-34.0); Mean Corpuscular Volume 87.7 fL (80.0-100.0); Platelet Count 181 K/uL (130-400); RDW Standard Deviation 45.0 fL (36.4-46.3); Red Blood Count 5.20 M/uL (4.70-6.10); White Blood Count 11.24 K/ul (4.8-10.8)
[2024-11-30 00:40] LABS: Alanine Aminotransferase 15.0 U/L (7-52); Albumin Globulin Ratio 1.0 (0.9-2); Albumin Level 3.7 gm/dl (3.4-5.0); Alkaline Phosphatase 85.0 U/L (34-104); Anion Gap 7.0 (3-11); Bilirubin,Total 1.5 mg/dl (0.2-1.0); Blood Urea Nitrogen 13.0 mg/dl (6-23); Calcium 8.9 mg/dl (8.6-10.3); Carbon Dioxide 21.0 mmol/L (21-32); Chloride 106.0 mmol/L (98-107); Creatinine Clr Calc Pharmacy 143.9 ml/min; Globulin 3.8 gm/dl (2.5-4.0); Glucose 206.0 mg/dl (70-99(Fasting)); Lipase 15.0 U/L (11-82); Potassium 3.6 mmol/L (3.5-5.1); Sodium 134.0 mmol/L (136-145); Total Protein 7.5 gm/dl (6.0-8.3)
[2024-11-30 00:55] LABS: INR 1.1 (0.9-1.1); Partial Thromboplastin Time 28 Seconds (21-31); Prothrombin Time 11.2 Seconds (9.0-12.0)
[2024-11-30] MEDS: ONDANSETRON INJ 2 MG/ML 2 ML VIAL IV STA (01:09)
[2024-11-30 01:15] LABS: Base Excess VBG -3.5 mEq/L; HCO3 VBG 22 mmol/L; Oxygen Saturation VBG 88.4 %; PCO2 VBG 41 mmHg (38-50); PO2 VBG 55 mmHg; pH VBG 7.34 (7.36-7.41)
[2024-11-30 01:19] LABS: Chlamydia pneumoniae PCR Not Detected (NotDetected); Coronavirus 229E PCR Not Detected (NotDetected); Coronavirus CoV-2 (COVID19)PCR Not Detected (NotDetected); Coronavirus HKU1 PCR Not Detected (NotDetected); Coronavirus NL63 PCR Not Detected (NotDetected); Coronavirus OC43PCR Not Detected (NotDetected); Human Metapneumovirus PCR Not Detected (NotDetected); Parainfluenza Virus 1 PCR Not Detected (NotDetected); Parainfluenza Virus 2 PCR Not Detected (NotDetected); Parainfluenza Virus 3 PCR Not Detected (NotDetected); Parainfluenza Virus 4 PCR Not Detected (NotDetected); Respiratory Syncytial VirusPCR Not Detected (NotDetected); Rhinovirus/Enterovirus PCR Not Detected (NotDetected)
--- NOTE | 2024-11-30 02:16 | CT Scan Report ---
EXAM: CT abd pelvis wo con CLINICAL HISTORY: abd pain/n/v TECHNIQUE: Contiguous axial images were obtained from the level of the diaphragm to the pubic symphysis without intravenous or oral contrast. Coronal and sagittal reconstructions were also performed and indicated to increase the sensitivity for detecting clinically relevant pathology. The CT scan was performed according to ALARA (as low as reasonably achievable). COMPARISON: none FINDINGS: The visualized lung bases show interstitial septal thickening, inhomogeneous attenuation, and bibasal pleural effusions. Cardiomegaly is present. Evaluation of the abdominal and pelvic visceral organs is limited without intravenous contrast. The unenhanced liver, spleen, pancreas, and adrenal glands are grossly unremarkable. The gallbladder has been surgically removed. The kidneys are normal in size and attenuation, without obvious calcification on the left side. There is an approximately 2.5 mm radiodense calculus in the upper pole of the right kidney. There is no hydronephrosis or perinephric stranding. The ureters are normal in caliber. No adenopathy or fluid collections are seen. There are fluid-filled and mildly dilated jejunal loops in the left upper quadrant with mild surrounding fat stranding. There is no abrupt change in the caliber of the bowel loops. Dilatation of bowel loops up to 32 mm is noted. No evidence of focal or diffuse bowel wall thickening is seen. No evidence of inflamed appendix. The aorta is normal in caliber. The urinary bladder is undistended. Pelvic viscera are grossly unremarkable. No aggressive-appearing osseous lesions are identified. Degenerative changes are noted in the visualized spine in the form of marginal osteophytes, endplate irregularities and sclerosis, reduction in disc height, small posterior disc bulges, vacuum phenomenon, and facet arthropathy changes, predominantly at lower lumbar levels. Grade II anterolisthesis of L5 over S1 vertebra is noted with bilateral pars interarticularis defect of the L5 vertebra. IMPRESSION: Fluid-filled and dilated jejunal loops in the left upper quadrant with mild surrounding fat stranding. No abrupt change in the caliber of bowel loops. These findings could represent enteritis changes; close interval follow-up is suggested for possible small bowel obstruction. Nonobstructive right renal calculus. Spondylodegenerative changes in the visualized spine. Cardiomegaly. The visualized lung bases show interstitial septal thickening, inhomogeneous attenuation, and bibasal pleural effusions, which could be due to pulmonary congestion. Electronically signed by Charlie Palumbo 11-30-2024 02:15 AM
--- NOTE | 2024-11-30 02:26 | XRay Report ---
EXAM: XR chest 1V portable CLINICAL HISTORY: Chest pain. TECHNIQUE: An X-ray image of the chest was obtained in the AP projection. COMPARISON: 09/21/2024 X-ray. FINDINGS: Pulmonary Parenchyma: Chest leads are identified. Mild haziness is seen in the right lung lower zone. Haziness is seen in the left lung lower zone and at the left costophrenic angle. There is no evidence of consolidation or collapse. No pulmonary nodules are identified. Heart and Mediastinum: The heart size is enlarged. A pacemaker lead is seen in place. There is no mediastinal widening or masses. Prominent vessels are seen at both pretty. Bony Thorax: The bony thorax appears intact, without fractures or deformities. Soft Tissues: The soft tissues overlying the chest wall are unremarkable. IMPRESSION: 1. There is no evidence of consolidation or collapse. 2. Haziness at the left lung lower zone and at the left costophrenic angle is more conspicuous on the current examination. This may be due to cardiomegaly and is less likely due to pleural effusion or thickening. If clinically required, ultrasound may be obtained. 3. Haziness in the right lung lower zone is conspicuous on the current examination and is likely due to overlying soft tissue shadow. 4. There is a redemonstration of prominent vessels in both pretty and in the right infrahilar region, likely due to vascular congestion. 5. There is no significant interval change. Electronically signed by Shiraz García 11-30-2024 02:26 AM
--- NOTE | 2024-11-30 03:23 | History & Physical Report ---
Date of Service November 30, 2024 Assessment & Plan (1) Nausea vomiting and diarrhea: (2) CHF (congestive heart failure): (3) Type 2 diabetes mellitus with peripheral neuropathy: (4) Obstructive sleep apnea: (5) COPD (chronic obstructive pulmonary disease): Plan 48yo male with multiple medical comorbidities presenting with nausea/vomiting/diarrhea #Nausea/Vomiting/Diarrhea - improving -Admit to medical with telemetry -Check stool PCR -Electrolyte repletion as needed -Zofran as needed #Diabetes - typically requiring 30-35u of Lantus at home -Lantus 12u BID -ISS -Goal blood sugar 110- 140 #CHF - appears fairly well compensated -Continue Lasix 80mg po BID -Continue Isosorbide 60mg po daily -Continue Metoprolol 125mg po BID -Continue Entresto -Continue Spironolactone #COPD - chronic respiratory failure with hypoxia - Obesity hypoventilation syndrome -Continue supplemental O2 -BiPAP qHS with ongoing oxygen -Continue Symbicort, Albuterol, Budesonide/Formoterol -Albuterol PRN #MARIELENA -CPAP qHS #Hypertension -Continue Metoprolol, Entresto, isosorbide and spironolactone -Monitor BP #Hyperlipidemia -Continue Atorvastatin Lovenox for DVT prophylaxis History of Present Illness Chief Complaint: nausea, vomiting, diarrhea Primary Care Provider: Gosia Martinez MD Alok Huff is a 48yo male with history of NICM (EF of 15-20%, severely dilated LV with severe global hypokinesis of the LV with septal dyskinesis per echo 08/23/2024), paroxysmal VT with single chamber ICD in place, chronic hypoxic respiratory failure on home O2, DM and HTN presenting with nausea, vomiting and diarrhea. Patient reports two days of vomiting- nonbloody emesis as well as diarrhea and lower abdominal pain. Also with chills. No chest pain, cough. Does have some worsening of his baseline SOB ER Course: Zofran Allergies Allergy/AdvReac Type Severity Reaction Status Date / Time albuterol Allergy Severe proair Verified 11/24/24 13:49 "trouble taking breaths" ceftriaxone Allergy Severe SHORTNESS Verified 11/24/24 13:49 OF BREATH lidocaine Allergy Severe SHORTNESS Verified 11/24/24 13:49 OF BREATH, diaphoretic, hives mushroom Allergy Severe Anaphylaxis Verified 11/24/24 13:49 procaine Allergy Severe SHORTNESS Verified 11/24/24 13:49 OF BREATH, diaphoretic, hives amoxicillin Allergy Intermediate HIVES/FACIAL Verified 11/24/24 13:49 SWELLING clavulanic acid Allergy Intermediate HIVES/FACIAL Verified 11/24/24 13:49 SWELLING lisinopril Allergy Intermediate HIVES Verified 11/24/24 13:49 shellfish derived Allergy Unknown Unknown Verified 11/24/24 13:49 acetaminophen AdvReac Mild NAUSEA Verified 11/24/24 13:49 Fish Containing Products AdvReac Unknown Unknown Verified 11/24/24 13:49 Home Medications Medication Instructions Recorded Confirmed Type nitroglycerin 0.4 mg sublingual 0.4 mg sublingual UD PRN Chest Pain 04/24/19 11/24/24 History tablet (Nitrostat) aspirin 81 mg tablet,delayed 81 mg PO QAM 06/16/21 11/24/24 History release (Neisha Low Dose Aspirin) albuterol sulfate 2.5 mg/3 mL 2.5 mg inhalation Q6H PRN 12/02/21 11/24/24 History (0.083 %) solution for nebulization Shortness Of Breath Or Wheezing budesonide 0.25 mg/2 mL suspension 0.25 mg inhalation DAILY PRN 09/15/22 11/24/24 History for nebulization Shortness Of Breath blood-glucose meter (AbleSkyTouch #1 ea 10/12/22 11/24/24 Rx Verio Flex Meter) lancets 30 gauge (OneTouch Delica #100 ea 10/12/22 11/24/24 Rx Plus Lancet) Symbicort 160 mcg-4.5 2 inh inhalation BID #3 Inhalers 11/14/22 11/24/24 Rx mcg/actuation HFA aerosol inhaler (budesonide-formoterol) blood sugar diagnostic (OneTouch #100 ea 01/17/23 11/24/24 Rx Verio test strips) albuterol sulfate 90 mcg/actuation 1 inh inhalation QID PRN Shortness 10/12/23 11/24/24 History aerosol inhaler Of Breath Or Wheezing trolamine salicylate 10 % topical 1 applic EXT BID PRN left sided 11/06/23 11/24/24 Rx cream (Myoflex) neck pain #35.4 grams blood-glucose,fender finisher,cont #1 ea 01/14/24 11/24/24 Rx (FreeStyle Karla 3 Johnson) Farxiga 10 mg tablet 10 mg PO DAILY #90 tabs 04/28/24 11/24/24 Rx (dapagliflozin propanediol) insulin glargine 100 unit/mL (3 50 unit subcut BID 04/28/24 11/24/24 History mL) subcutaneous pen isosorbide mononitrate 60 mg 60 mg PO DAILY #90 tabs 04/28/24 11/24/24 Rx tablet,extended release 24 hr metoprolol succinate 100 mg 100 mg PO BID #180 tabs 04/28/24 11/24/24 Rx tablet,extended release 24 hr sacubitril 97 mg-valsartan 103 mg 1 tab PO BID #180 tabs 04/28/24 11/24/24 Rx tablet (Entresto) Oxygen Home #1 ea 05/29/24 11/24/24 Rx spironolactone 50 mg tablet 50 mg PO BID #60 tabs 06/24/24 11/24/24 Rx furosemide 80 mg tablet 80 mg PO BID #60 tabs 06/28/24 11/24/24 Rx metoprolol succinate 25 mg 25 mg PO BID #60 tabs 07/15/24 11/24/24 Rx tablet,extended release 24 hr Portable Oxygen #1 ea 08/20/24 11/24/24 Rx magnesium oxide 400 mg (241.3 mg 400 mg PO QAM 08/22/24 11/24/24 History magnesium) tablet atorvastatin 10 mg tablet 10 mg PO DAILY #90 tabs 09/11/24 11/24/24 Rx pen needle, diabetic 31 gauge x #500 ea 09/26/24 11/24/24 Rx 5/16" (Comfort EZ Pen [place]) alcohol swabs (Alcohol Pads) 5 pad topical DAILY #500 ea 09/29/24 11/24/24 Rx insulin lispro 100 unit/mL 10 unit (0.1 mL) subcut TID #15 mL 10/01/24 11/24/24 Rx subcutaneous pen (Humalog KwikPen (U-100) Insulin) nystatin 100,000 unit/gram topical 1 applic topical BID PRN Skin 10/07/24 11/24/24 Rx powder Irritation #60 grams triamcinolone acetonide 0.025 % 1 applic topical TID PRN rash #454 10/07/24 11/24/24 Rx topical cream grams lidocaine 5 % topical patch 1 patch topical DAILY PRN Pain #90 10/20/24 11/24/24 Rx ea mupirocin 2 % topical ointment 1 applic topical TID #22 grams 10/20/24 11/24/24 Rx tirzepatide 7.5 mg/0.5 mL 7.5 mg (0.5 mL) subcut Q7D 30 days 10/20/24 11/24/24 Rx subcutaneous pen injector #2 mL CPAP Supplies #1 ea 11/18/24 11/24/24 Rx blood-glucose sensor (Dexcom G7 #3 ea 11/27/24 11/27/24 Rx Sensor device) Past Med/Surg History Problem List (Updated 11/30/24 @ 04:14 by Ciarra Burr DO) Nausea vomiting and diarrhea Thrombocytopenia (Acute) Hypertensive emergency (Acute) NYHA class 3 acute on chronic systolic heart failure Uncontrolled hypertension Acute on chronic respiratory failure with hypoxia (Acute) Hypomagnesemia (Acute) CHF (congestive heart failure) (Acute) Elevated troponin (Acute) Chest pain (Acute) Hypokalemia Acute on chronic systolic CHF (congestive heart failure) (Acute) Acute kidney failure Left knee pain Elevated brain natriuretic peptide (BNP) level (Acute) Hypomagnesemia (Acute) Acute exacerbation of CHF (congestive heart failure) (Acute) Venous stasis dermatitis Non-sustained ventricular tachycardia (Acute) Pulmonary edema (Acute) Lightheadedness (Acute) Dyspnea (Acute) Acute on chronic heart failure with reduced ejection fraction (HFrEF, <= 40%) Periapical abscess Pulmonary edema (Acute) Hypomagnesemia (Acute) Type 2 diabetes mellitus with peripheral neuropathy Diabetic peripheral neuropathy Non-proliferative diabetic retinopathy, both eyes Uncontrolled diabetes mellitus with hyperglycemia Normocytic anemia Poor intravenous access Chronic anticoagulation Diabetes mellitus type II, uncontrolled (Chronic) Urinary bladder incontinence Hx of local infection of skin and subcutaneous tissue Ambulatory dysfunction (Chronic) Recurrent infection of skin Pulmonary nodule V tach (Acute) Hemoptysis (Acute) Vitamin D deficiency Medical History Hypertension Type 2 diabetes mellitus with microalbuminuria HFrEF (heart failure with reduced ejection fraction) Chronic respiratory failure Chronic respiratory failure with hypoxia Type 2 diabetes mellitus with obesity Morbid obesity with BMI of 50.0-59.9, adult Hypertension Non-sustained ventricular tachycardia Obstructive sleep apnea NICM (nonischemic cardiomyopathy) Pt admitted for elective ICD. Underwent procedure without any complications monitored over night and discharged home. Combined systolic and diastolic heart failure Nonischemic cardiomyopathy, unclear etiology. Difficult to manage. Integrated into heart failure clinic. Frequent admissions for heart failure exacerbations. Echo (05/31) EF=25-30% with mod to severe global hypokinesis, basal kelsi-septal akinetic wall, LVH, RVSP elevated at 30-40mmHg, and mod dilated ascending aorta. Managed medically with ASA + BB + ARB/Neprilysin inhibitor (Entresto) + high dose furosemide (160mg BID) + metolazone (3x weekly). Considering ICD given EF. COPD (chronic obstructive pulmonary disease) Hypomagnesemia Medical non-compliance Intellectual disability Chronic dental pain Small bowel obstruction Housing instability, currently housed, at risk for homelessness Hearing loss of both ears Nonproliferative retinopathy due to secondary diabetes Dilatation of thoracic aorta Iliac aneurysm Vitamin D insufficiency Previously deficient, taking Vit D supplementation Umbilical hernia Lung nodule Fatty liver Surgical History AICD (automatic cardioverter/defibrillator) present H/O oral surgery History of carpal tunnel surgery S/P tonsillectomy History of cholecystectomy Family History Father , age 57 of an MD. 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: No Beliefs That Will Affect Care: None marital status: Current Living Situation: Family Current Living Situation Comment: Lives at home with current occupational status: unemployed How many Children do You have: 0 Feels Safe at Home: Yes Childhood Exposure to Second-Hand Smoke: Yes Dental Care, Regularly: Yes Physical Activity Frequency: Does not Exercise Seatbelt Use: never Sunscreen Use: No Assistive Devices: Walker Review of Systems Review of Systems: All systems reviewed & are unremarkable except as noted in HPI & below Physical Exam Physical Exam: General: patient resting comfortably, NAD, non-toxic in appearance, AA&O x 4 Skin: warm, dry, intact, no rashes or lesions HEENT: NC/AT, PERRL, EOMI, anicteric sclera, conjunctiva without injection, external ear normal to inspection and nontender, nares patent, moist mucus membranes, dentition intact, no oropharyngeal lesions, neck supple, trachea midline, no LAD, no thyromegaly, no JVD Heart: +S1/S2, regular, no m/r/g Lungs: equal air entry bilaterally, no rales/rhonchi/wheezes Abd: +BS, soft, ND, tender in the lower abdomen with no rebound or guarding, no masses/organomegaly/ascites Ext: warm, 2+ pulses in UE/LE bilaterally, no clubbing/cyanosis or edema Neuro: nonfocal, patient AA&O x 4, speech intact, no facial droop, moving all extremities on command with equal strength 5/5 Results & Data Results & Data Vital Signs (Past 12 Hours) Vital Signs Temp Pulse Resp BP Pulse Ox O2 Del Method O2 Flow Rate 11/30/24 01:45 116 H 14 98 11/30/24 01:42 98 H 23 153/103 H 98 11/30/24 00:06 106 H 28 H 161/110 H 97 11/29/24 23:45 96 Nasal Cannula 6 11/29/24 23:42 114 H 11/29/24 23:37 36.6 C 110 H 24 170/129 H 96 Nasal Cannula 6 FiO2 11/30/24 01:45 35 11/30/24 01:42 11/30/24 00:06 11/29/24 23:45 11/29/24 23:42 11/29/24 23:37 Laboratory Results Laboratory Results WBC 11.24 K/ul (4.8-10.8) H 11/30/24 00:00 RBC 5.20 M/uL (4.70-6.10) 11/30/24 00:00 Hgb 16.0 g/dl (14.0-18.0) 11/30/24 00:00 Hct 45.6 % (42.0-52.0) 11/30/24 00:00 MCV 87.7 fL (80.0-100.0) 11/30/24 00:00 MCH 30.8 pg (25.0-34.0) 11/30/24 00:00 MCHC 35.1 g/dL (32.0-36.0) 11/30/24 00:00 RDW Std Deviation 45.0 fL (36.4-46.3) 11/30/24 00:00 RDW Coeff of Zoltan 14.0 % (11.5-14.5) 11/30/24 00:00 Plt Count 181 K/uL (130-400) 11/30/24 00:00 MPV 9.8 fL (9.4-12.4) 11/30/24 00:00 Immature Gran % (Auto) 0.4 % 11/30/24 00:00 Neut % (Auto) 79.4 % 11/30/24 00:00 Lymph % (Auto) 13.4 % 11/30/24 00:00 [place] % (Auto) 6.0 % 11/30/24 00:00 Eos % (Auto) 0.5 % 11/30/24 00:00 Baso % (Auto) 0.3 % 11/30/24 00:00 Neut # (Auto) 8.92 K/uL (1.40-6.50) H 11/30/24 00:00 Lymph # (Auto) 1.51 K/uL (1.20-3.40) 11/30/24 00:00 [place] # (Auto) 0.67 K/uL (0.11-0.59) H 11/30/24 00:00 Eos # (Auto) 0.06 K/uL (0.00-0.50) 11/30/24 00:00 Baso # (Auto) 0.03 K/uL (0.00-0.20) 11/30/24 00:00 Immature Gran # (Auto) 0.05 K/uL (0.01-0.20) 11/30/24 00:00 PT 11.2 Seconds (9.0-12.0) 11/30/24 00:00 INR 1.1 (0.9-1.1) 11/30/24 00:00 APTT 28 Seconds (21-31) 11/30/24 00:00 PTT Ratio 1.0 11/30/24 00:00 VBG pH 7.34 (7.36-7.41) L 11/30/24 01:00 VBG pCO2 41 mmHg (38-50) 11/30/24 01:00 VBG pO2 55 mmHg 11/30/24 01:00 VBG HCO3 22 mmol/L 11/30/24 01:00 VBG O2 Saturation 88.4 % 11/30/24 01:00 VBG Base Excess -3.5 mEq/L 11/30/24 01:00 Sodium 134 mmol/L (136-145) L 11/30/24 00:00 Potassium 3.6 mmol/L (3.5-5.1) 11/30/24 00:00 Chloride 106 mmol/L (98-107) 11/30/24 00:00 Carbon Dioxide 21 mmol/L (21-32) 11/30/24 00:00 Anion Gap 7 (3-11) 11/30/24 00:00 BUN 13 mg/dl (6-23) 11/30/24 00:00 Creatinine 0.94 mg/dl (0.6-1.4) 11/30/24 00:00 Est Cr Clr Drug Dosing 143.9 ml/min 11/30/24 00:00 eGFR 100.62 11/30/24 00:00 BUN/Creatinine Ratio 13.8 (10-20) 11/30/24 00:00 Glucose 206 mg/dl (70-99(Fasting)) H 11/30/24 00:00 Calcium 8.9 mg/dl (8.6-10.3) 11/30/24 00:00 Total Bilirubin 1.5 mg/dl (0.2-1.0) H 11/30/24 00:00 AST 16 U/L (13-39) 11/30/24 00:00 ALT 15 U/L (7-52) 11/30/24 00:00 Alkaline Phosphatase 85 U/L (34-104) 11/30/24 00:00 Troponin I High Sens 31.9 pg/ml (0-20) H 11/30/24 02:15 B-Natriuretic Peptide 574 pg/ml (0-100) H 11/30/24 01:00 Total Protein 7.5 gm/dl (6.0-8.3) 11/30/24 00:00 Albumin 3.7 gm/dl (3.4-5.0) 11/30/24 00:00 Globulin 3.8 gm/dl (2.5-4.0) 11/30/24 00:00 Albumin/Globulin Ratio 1.0 (0.9-2) 11/30/24 00:00 Lipase 15 U/L (11-82) 11/30/24 00:00 Adenovirus (PCR) Not Detected (NotDetected) 11/29/24 23:51 B. pertussis DNA (PCR) Not Detected (NotDetected) 11/29/24 23:51 B.parapertussis DNA PCR Not Detected (NotDetected) 11/29/24 23:51 C. pneumoniae DNA (PCR) Not Detected (NotDetected) 11/29/24 23:51 Coronavirus OC43 (PCR) Not Detected (NotDetected) 11/29/24 23:51 Coronavirus HKU1 (PCR) Not Detected (NotDetected) 11/29/24 23:51 Coronavirus 229E (PCR) Not Detected (NotDetected) 11/29/24 23:51 SARS-CoV-2 (PCR) Not Detected (NotDetected) 11/29/24 23:51 Coronavirus NL63 (PCR) Not Detected (NotDetected) 11/29/24 23:51 Human Metapneumovir PCR Not Detected (NotDetected) 11/29/24 23:51 Influenza Type A (PCR) Not Detected (NotDetected) 11/29/24 23:51 Influenza Type B (PCR) Not Detected (NotDetected) 11/29/24 23:51 M. pneumoniae (PCR) Not Detected (NotDetected) 11/29/24 23:51 Parainfluenza 1 (PCR) Not Detected (NotDetected) 11/29/24 23:51 Parainfluenza 2 (PCR) Not Detected (NotDetected) 11/29/24 23:51 Parainfluenza 3 (PCR) Not Detected (NotDetected) 11/29/24 23:51 Parainfluenza 4 (PCR) Not Detected (NotDetected) 11/29/24 23:51 RSV (PCR) Not Detected (NotDetected) 11/29/24 23:51 Entero/Rhino (PCR) Not Detected (NotDetected) 11/29/24 23:51 Impressions Abdomen/Pelvis CT 11/29/24 23:43 EXAM: CT abd pelvis wo con CLINICAL HISTORY: abd pain/n/v TECHNIQUE: Contiguous axial images were obtained from the level of the diaphragm to the pubic symphysis without intravenous or oral contrast. Coronal and sagittal reconstructions were also performed and indicated to increase the sensitivity for detecting clinically relevant pathology. The CT scan was performed according to ALARA (as low as reasonably achievable). COMPARISON: none FINDINGS: The visualized lung bases show interstitial septal thickening, inhomogeneous attenuation, and bibasal pleural effusions. Cardiomegaly is present. Evaluation of the abdominal and pelvic visceral organs is limited without intravenous contrast. The unenhanced liver, spleen, pancreas, and adrenal glands are grossly unremarkable. The gallbladder has been surgically removed. The kidneys are normal in size and attenuation, without obvious calcification on the left side. There is an approximately 2.5 mm radiodense calculus in the upper pole of the right kidney. There is no hydronephrosis or perinephric stranding. The ureters are normal in caliber. No adenopathy or fluid collections are seen. There are fluid-filled and mildly dilated jejunal loops in the left upper quadrant with mild surrounding fat stranding. There is no abrupt change in the caliber of the bowel loops. Dilatation of bowel loops up to 32 mm is noted. No evidence of focal or diffuse bowel wall thickening is seen. No evidence of inflamed appendix. The aorta is normal in caliber. The urinary bladder is undistended. Pelvic viscera are grossly unremarkable. No aggressive-appearing osseous lesions are identified. Degenerative changes are noted in the visualized spine in the form of marginal osteophytes, endplate irregularities and sclerosis, reduction in disc height, small posterior disc bulges, vacuum phenomenon, and facet arthropathy changes, predominantly at lower lumbar levels. Grade II anterolisthesis of L5 over S1 vertebra is noted with bilateral pars interarticularis defect of the L5 vertebra. IMPRESSION: Fluid-filled and dilated jejunal loops in the left upper quadrant with mild surrounding fat stranding. No abrupt change in the caliber of bowel loops. These findings could represent enteritis changes; close interval follow-up is suggested for possible small bowel obstruction. Nonobstructive right renal calculus. Spondylodegenerative changes in the visualized spine. Cardiomegaly. The visualized lung bases show interstitial septal thickening, inhomogeneous attenuation, and bibasal pleural effusions, which could be due to pulmonary congestion. Electronically signed by Charlie Palumbo 11-30-2024 02:15 AM Chest X-Ray 11/29/24 23:45 EXAM: XR chest 1V portable CLINICAL HISTORY: Chest pain. TECHNIQUE: An X-ray image of the chest was obtained in the AP projection. COMPARISON: 09/21/2024 X-ray. FINDINGS: Pulmonary Parenchyma: Chest leads are identified. Mild haziness is seen in the right lung lower zone. Haziness is seen in the left lung lower zone and at the left costophrenic angle. There is no evidence of consolidation or collapse. No pulmonary nodules are identified. Heart and Mediastinum: The heart size is enlarged. A pacemaker lead is seen in place. There is no mediastinal widening or masses. Prominent vessels are seen at both pretty. Bony Thorax: The bony thorax appears intact, without fractures or deformities. Soft Tissues: The soft tissues overlying the chest wall are unremarkable. IMPRESSION: 1. There is no evidence of consolidation or collapse. 2. Haziness at the left lung lower zone and at the left costophrenic angle is more conspicuous on the current examination. This may be due to cardiomegaly and is less likely due to pleural effusion or thickening. If clinically required, ultrasound may be obtained. 3. Haziness in the right lung lower zone is conspicuous on the current examination and is likely due to overlying soft tissue shadow. 4. There is a redemonstration of prominent vessels in both pretty and in the right infrahilar region, likely due to vascular congestion. 5. There is no significant interval change. Electronically signed by Shiraz García 11-30-2024 02:26 AM PG Care Time/CCT Total # of Minutes Spent Total Time Spent with Patient: Total time spent is greater than 50% in coordination of care (as documented) at patient's floor/unit and/or counseling patient: Coding Level of Care Code 11207 INT INP/OBS CARE MIN Diagnoses Nausea vomiting and diarrhea R11.2; R19.7 CHF (congestive heart failure) I50.9 Heart failure chronicity: acute on chronic Heart failure type: unspecified Type 2 diabetes mellitus with peripheral neuropathy E11.42 Obstructive sleep apnea G47.33 Chronic obstructive pulmonary disease, unspecified COPD type J44.9 (2) CHF (congestive heart failure) Heart failure chronicity: acute on chronic Heart failure type: unspecified Qualified Code(s): I50.9 - Heart failure, unspecified
--- NOTE | 2024-11-30 05:02 | Emergency Department Note ---
History of Present Illness General Chief complaint: Abdominal Pain Stated complaint: Upper Abdominal Pain Time Seen by Provider: 11/29/24 23:38 History of Present Illness Maximum Pain Intensity: 10 This is a 48-year-old male presenting to the emergency department via EMS for evaluation of upper abdominal pain, nausea, and vomiting. Patient also describes some chest pain, and has a longstanding history of cardiac disease. The patient has had several episodes of vomiting today, and diarrhea yesterday. The patient has not had fevers or chills. He has not taken anything [id number] for symptoms. He rates his overall discomfort a 11/21. Home Medications Medication Instructions Recorded Confirmed Type nitroglycerin 0.4 mg sublingual 0.4 mg sublingual UD PRN Chest Pain 04/24/19 11/24/24 History tablet (Nitrostat) aspirin 81 mg tablet,delayed 81 mg PO QAM 06/16/21 11/24/24 History release (Neisha Low Dose Aspirin) albuterol sulfate 2.5 mg/3 mL 2.5 mg inhalation Q6H PRN 12/02/21 11/24/24 History (0.083 %) solution for nebulization Shortness Of Breath Or Wheezing budesonide 0.25 mg/2 mL suspension 0.25 mg inhalation DAILY PRN 09/15/22 11/24/24 History for nebulization Shortness Of Breath blood-glucose meter (OneTouch #1 ea 10/12/22 11/24/24 Rx Verio Flex Meter) lancets 30 gauge (OneTouch Delica #100 ea 10/12/22 11/24/24 Rx Plus Lancet) Symbicort 160 mcg-4.5 2 inh inhalation BID #3 Inhalers 11/14/22 11/24/24 Rx mcg/actuation HFA aerosol inhaler (budesonide-formoterol) blood sugar diagnostic (OneTouch #100 ea 01/17/23 11/24/24 Rx Verio test strips) albuterol sulfate 90 mcg/actuation 1 inh inhalation QID PRN Shortness 10/12/23 11/24/24 History aerosol inhaler Of Breath Or Wheezing trolamine salicylate 10 % topical 1 applic EXT BID PRN left sided 11/06/23 11/24/24 Rx cream (Myoflex) neck pain #35.4 grams blood-glucose,shipper/receiver,cont #1 ea 01/14/24 11/24/24 Rx (FreeStyle Karla 3 [place]) Farxiga 10 mg tablet 10 mg PO DAILY #90 tabs 04/28/24 11/24/24 Rx (dapagliflozin propanediol) insulin glargine 100 unit/mL (3 50 unit subcut BID 04/28/24 11/24/24 History mL) subcutaneous pen isosorbide mononitrate 60 mg 60 mg PO DAILY #90 tabs 04/28/24 11/24/24 Rx tablet,extended release 24 hr metoprolol succinate 100 mg 100 mg PO BID #180 tabs 04/28/24 11/24/24 Rx tablet,extended release 24 hr sacubitril 97 mg-valsartan 103 mg 1 tab PO BID #180 tabs 04/28/24 11/24/24 Rx tablet (Entresto) Oxygen Home #1 ea 05/29/24 11/24/24 Rx spironolactone 50 mg tablet 50 mg PO BID #60 tabs 06/24/24 11/24/24 Rx furosemide 80 mg tablet 80 mg PO BID #60 tabs 06/28/24 11/24/24 Rx metoprolol succinate 25 mg 25 mg PO BID #60 tabs 07/15/24 11/24/24 Rx tablet,extended release 24 hr Portable Oxygen #1 ea 08/20/24 11/24/24 Rx magnesium oxide 400 mg (241.3 mg 400 mg PO QAM 08/22/24 11/24/24 History magnesium) tablet atorvastatin 10 mg tablet 10 mg PO DAILY #90 tabs 09/11/24 11/24/24 Rx pen needle, diabetic 31 gauge x #500 ea 09/26/24 11/24/24 Rx 5/16" (Comfort EZ Pen [place]) alcohol swabs (Alcohol Pads) 5 pad topical DAILY #500 ea 09/29/24 11/24/24 Rx insulin lispro 100 unit/mL 10 unit (0.1 mL) subcut TID #15 mL 10/01/24 11/24/24 Rx subcutaneous pen (Humalog KwikPen (U-100) Insulin) nystatin 100,000 unit/gram topical 1 applic topical BID PRN Skin 10/07/24 11/24/24 Rx powder Irritation #60 grams triamcinolone acetonide 0.025 % 1 applic topical TID PRN rash #454 10/07/24 11/24/24 Rx topical cream grams lidocaine 5 % topical patch 1 patch topical DAILY PRN Pain #90 10/20/24 11/24/24 Rx ea mupirocin 2 % topical ointment 1 applic topical TID #22 grams 10/20/24 11/24/24 Rx tirzepatide 7.5 mg/0.5 mL 7.5 mg (0.5 mL) subcut Q7D 30 days 10/20/24 11/24/24 Rx subcutaneous pen injector #2 mL CPAP Supplies #1 ea 11/18/24 11/24/24 Rx blood-glucose sensor (Dexcom G7 #3 ea 11/27/24 11/27/24 Rx Sensor device) Allergies Allergy/AdvReac Type Severity Reaction Status Date / Time albuterol Allergy Severe proair Verified 11/24/24 13:49 "trouble taking breaths" ceftriaxone Allergy Severe SHORTNESS Verified 11/24/24 13:49 OF BREATH lidocaine Allergy Severe SHORTNESS Verified 11/24/24 13:49 OF BREATH, diaphoretic, hives mushroom Allergy Severe Anaphylaxis Verified 11/24/24 13:49 procaine Allergy Severe SHORTNESS Verified 11/24/24 13:49 OF BREATH, diaphoretic, hives amoxicillin Allergy Intermediate HIVES/FACIAL Verified 11/24/24 13:49 SWELLING clavulanic acid Allergy Intermediate HIVES/FACIAL Verified 11/24/24 13:49 SWELLING lisinopril Allergy Intermediate HIVES Verified 11/24/24 13:49 shellfish derived Allergy Unknown Unknown Verified 11/24/24 13:49 acetaminophen AdvReac Mild NAUSEA Verified 11/24/24 13:49 Fish Containing Products AdvReac Unknown Unknown Verified 11/24/24 13:49 Past Med/Surg History Problem List (Updated 11/30/24 @ 05:02 by Vick Banuelos PA-C) Nausea and vomiting (Acute) CHF (congestive heart failure) (Acute) Enteritis (Acute) Nausea vomiting and diarrhea Thrombocytopenia (Acute) Hypertensive emergency (Acute) NYHA class 3 acute on chronic systolic heart failure Uncontrolled hypertension Acute on chronic respiratory failure with hypoxia (Acute) Hypomagnesemia (Acute) CHF (congestive heart failure) (Acute) Elevated troponin (Acute) Chest pain (Acute) Hypokalemia Acute on chronic systolic CHF (congestive heart failure) (Acute) Acute kidney failure Left knee pain Elevated brain natriuretic peptide (BNP) level (Acute) Hypomagnesemia (Acute) Acute exacerbation of CHF (congestive heart failure) (Acute) Venous stasis dermatitis Non-sustained ventricular tachycardia (Acute) Pulmonary edema (Acute) Lightheadedness (Acute) Dyspnea (Acute) Acute on chronic heart failure with reduced ejection fraction (HFrEF, <= 40%) Periapical abscess Pulmonary edema (Acute) Hypomagnesemia (Acute) Type 2 diabetes mellitus with peripheral neuropathy Diabetic peripheral neuropathy Non-proliferative diabetic retinopathy, both eyes Uncontrolled diabetes mellitus with hyperglycemia Normocytic anemia Poor intravenous access Chronic anticoagulation Diabetes mellitus type II, uncontrolled (Chronic) Urinary bladder incontinence Hx of local infection of skin and subcutaneous tissue Ambulatory dysfunction (Chronic) Recurrent infection of skin Pulmonary nodule V tach (Acute) Hemoptysis (Acute) Vitamin D deficiency Medical History Hypertension Type 2 diabetes mellitus with microalbuminuria HFrEF (heart failure with reduced ejection fraction) Chronic respiratory failure Chronic respiratory failure with hypoxia Type 2 diabetes mellitus with obesity Morbid obesity with BMI of 50.0-59.9, adult Hypertension Non-sustained ventricular tachycardia Obstructive sleep apnea NICM (nonischemic cardiomyopathy) Pt admitted for elective ICD. Underwent procedure without any complications monitored over night and discharged home. Combined systolic and diastolic heart failure Nonischemic cardiomyopathy, unclear etiology. Difficult to manage. Integrated into heart failure clinic. Frequent admissions for heart failure exacerbations. Echo (05/31) EF=25-30% with mod to severe global hypokinesis, basal kelsi-septal akinetic wall, LVH, RVSP elevated at 30-40mmHg, and mod dilated ascending aorta. Managed medically with ASA + BB + ARB/Neprilysin inhibitor (Entresto) + high dose furosemide (160mg BID) + metolazone (3x weekly). Considering ICD given EF. COPD (chronic obstructive pulmonary disease) Hypomagnesemia Medical non-compliance Intellectual disability Chronic dental pain Small bowel obstruction Housing instability, currently housed, at risk for homelessness Hearing loss of both ears Nonproliferative retinopathy due to secondary diabetes Dilatation of thoracic aorta Iliac aneurysm Vitamin D insufficiency Previously deficient, taking Vit D supplementation Umbilical hernia Lung nodule Fatty liver Surgical History AICD (automatic cardioverter/defibrillator) present H/O oral surgery History of carpal tunnel surgery S/P tonsillectomy History of cholecystectomy Family History Father , age 57 of an [place]. Heart disease Myocardial infarction Mother , age 67 of a ruptured neck vessel Sudden Other Depression Lung disease No pertinent family history Denies family history of Ovarian cancer Prostate cancer Breast cancer Colorectal cancer Social History Smoking Status: Never smoker Tobacco Type: Cigarettes Age Started Using Tobacco: 14; Age Quit Using Tobacco: 18; packs per day: 1; Second Hand Exposure: No; Do You Dip or Chew Tobacco: No; Hx Alcohol Use: No Hx Substance Use: No Preferred Language: Yi Communication Ability: Effective Visual Impairment: No Limitations Hearing Ability: Normal Aging Box Hand Required: No Beliefs That Will Affect Care: None marital status: Current Living Situation: Family Current Living Situation Comment: Lives at home with current occupational status: unemployed How many Children do You have: 0 Feels Safe at Home: Yes Childhood Exposure to Second-Hand Smoke: Yes Dental Care, Regularly: Yes Physical Activity Frequency: Does not Exercise Seatbelt Use: never Sunscreen Use: No Assistive Devices: Walker Review of Systems A total of 10 systems reviewed and were otherwise negative Physical Exam Vital Signs Vital Signs - 24 hr 11/29/24 23:37 11/29/24 23:42 11/29/24 23:45 Temperature 36.6 C Temperature Source Oral Pulse Rate 110 H 114 H Pulse Rate from SpO2 Sensor Respiratory Rate 24 Respiratory Effort / Characteristics Respiratory Depth Deep Respiratory Pattern Blood Pressure 170/129 H Blood Pressure Mean 142 Pulse Oximetry 96 96 Oxygen Delivery Method Nasal Cannula Nasal Cannula Oxygen Flow Rate 6 6 Fraction of Inspired Oxygen Sepsis Recent Fever Within 48 Hours No Sepsis New/Unexplained Change in Mental Status No Sepsis Action Taken by Nursing Physician Notified 11/30/24 00:06 11/30/24 01:42 11/30/24 01:45 Temperature Temperature Source Pulse Rate 106 H 98 H 116 H Pulse Rate from SpO2 Sensor 98 H Respiratory Rate 28 H 23 14 Respiratory Effort / Characteristics Non-Labored Spontaneous Respiratory Depth Normal Respiratory Pattern Regular Blood Pressure 161/110 H 153/103 H Blood Pressure Mean 127 119 Pulse Oximetry 97 98 98 Oxygen Delivery Method Oxygen Flow Rate Fraction of Inspired Oxygen 35 Sepsis Recent Fever Within 48 Hours Sepsis New/Unexplained Change in Mental Status Sepsis Action Taken by Nursing 11/30/24 02:27 11/30/24 03:03 Temperature Temperature Source Pulse Rate 93 H 90 Pulse Rate from SpO2 Sensor 93 H 93 H Respiratory Rate 23 18 Respiratory Effort / Characteristics Respiratory Depth Respiratory Pattern Blood Pressure 137/109 H 142/121 H Blood Pressure Mean 118 128 Pulse Oximetry 99 98 Oxygen Delivery Method Oxygen Flow Rate Fraction of Inspired Oxygen Sepsis Recent Fever Within 48 Hours Sepsis New/Unexplained Change in Mental Status Sepsis Action Taken by Nursing VITALS: Vitals are noted on the nurse's note and reviewed by myself. Vital signs stable. GENERAL: Chronically unwell appearing male at his baseline health. He is cooperative with the examination and otherwise pleasant. HEAD: Normocephalic atraumatic. NECK: Supple without nuchal rigidity. No lymphadenopathy. No thyromegaly. Cervical spine is nontender. HEART: Regular rate and rhythm without murmurs gallops or rubs. LUNGS: Clear to auscultation bilaterally without wheezes, rales or rhonchi. No retractions or accessory muscle use. ABDOMEN: Positive normal bowel sounds x 4. Soft, with mild left-sided tenderness. No right sided tenderness. No CVA tenderness. MUSCULOSKELETAL: No muscle atrophy, erythema, or edema noted. Full range of motion in all extremities. NEURO: Patient was alert and oriented to person place and time. CN II through XII grossly intact. No focal neurological deficits. GCS 15. Course Administered Medications Discontinued Medications Ondansetron HCl (Ondansetron Inj 2 Mg/Ml 2 Ml Vial) 4 mg IV NOW STA Stop: 11/30/24 01:08 Last Admin: 11/30/24 01:09 Dose: 4 mg Documented By: PAYAL Medical Decision Making Differential Diagnosis Differential diagnosis: Etiologies such as biliary colic, cholecystitis, hepatitis, pancreatitis, cardiac disease, pancreatitis, gastritis, peptic ulcer disease, appendicitis, cystitis, diverticulitis, mesenteric ischemia, inflammatory bowel disease, ileus, bowel obstruction, testicular/adnexal torsion, aortic pathology, shingles, as well as others were considered Laboratory Data 11/30/24 00:00 11/30/24 00:00 Lab Results 11/29/24 11/30/24 11/30/24 Range/Units 23:51 00:00 01:00 WBC 11.24 H (4.8-10.8) K/ul RBC 5.20 (4.70-6.10) M/uL Hgb 16.0 (14.0-18.0) g/dl Hct 45.6 (42.0-52.0) % MCV 87.7 (80.0-100.0) fL MCH 30.8 (25.0-34.0) pg MCHC 35.1 (32.0-36.0) g/dL RDW Std Deviation 45.0 (36.4-46.3) fL RDW Coeff of Zoltan 14.0 (11.5-14.5) % Plt Count 181 (130-400) K/uL MPV 9.8 (9.4-12.4) fL Immature Gran % (Auto) 0.4 % Neut % (Auto) 79.4 % Lymph % (Auto) 13.4 % [place] % (Auto) 6.0 % Eos % (Auto) 0.5 % Baso % (Auto) 0.3 % Neut # (Auto) 8.92 H (1.40-6.50) K/uL Lymph # (Auto) 1.51 (1.20-3.40) K/uL [place] # (Auto) 0.67 H (0.11-0.59) K/uL Eos # (Auto) 0.06 (0.00-0.50) K/uL Baso # (Auto) 0.03 (0.00-0.20) K/uL Immature Gran # (Auto) 0.05 (0.01-0.20) K/uL PT 11.2 (9.0-12.0) Seconds INR 1.1 (0.9-1.1) APTT 28 (21-31) Seconds PTT Ratio 1.0 VBG pH 7.34 L (7.36-7.41) VBG pCO2 41 (38-50) mmHg VBG pO2 55 mmHg VBG HCO3 22 mmol/L VBG O2 Saturation 88.4 % VBG Base Excess -3.5 mEq/L Sodium 134 L (136-145) mmol/L Potassium 3.6 (3.5-5.1) mmol/L Chloride 106 (98-107) mmol/L Carbon Dioxide 21 (21-32) mmol/L Anion Gap 7 (3-11) BUN 13 (6-23) mg/dl Creatinine 0.94 (0.6-1.4) mg/dl Est Cr Clr Drug Dosing 143.9 ml/min eGFR 100.62 BUN/Creatinine Ratio 13.8 (10-20) Glucose 206 H (70-99(Fasting)) mg/dl Calcium 8.9 (8.6-10.3) mg/dl Total Bilirubin 1.5 H (0.2-1.0) mg/dl AST 16 (13-39) U/L ALT 15 (7-52) U/L Alkaline Phosphatase 85 (34-104) U/L Troponin I High Sens 31.9 H (0-20) pg/ml B-Natriuretic Peptide 574 H (0-100) pg/ml Total Protein 7.5 (6.0-8.3) gm/dl Albumin 3.7 (3.4-5.0) gm/dl Globulin 3.8 (2.5-4.0) gm/dl Albumin/Globulin Ratio 1.0 (0.9-2) Lipase 15 (11-82) U/L Adenovirus (PCR) Not Detected (NotDetected) B. pertussis DNA (PCR) Not Detected (NotDetected) B.parapertussis DNA PCR Not Detected (NotDetected) C. pneumoniae DNA (PCR) Not Detected (NotDetected) Coronavirus OC43 (PCR) Not Detected (NotDetected) Coronavirus HKU1 (PCR) Not Detected (NotDetected) Coronavirus 229E (PCR) Not Detected (NotDetected) SARS-CoV-2 (PCR) Not Detected (NotDetected) Coronavirus NL63 (PCR) Not Detected (NotDetected) Human Metapneumovir PCR Not Detected (NotDetected) Influenza Type A (PCR) Not Detected (NotDetected) Influenza Type B (PCR) Not Detected (NotDetected) M. pneumoniae (PCR) Not Detected (NotDetected) Parainfluenza 1 (PCR) Not Detected (NotDetected) Parainfluenza 2 (PCR) Not Detected (NotDetected) Parainfluenza 3 (PCR) Not Detected (NotDetected) Parainfluenza 4 (PCR) Not Detected (NotDetected) RSV (PCR) Not Detected (NotDetected) Entero/Rhino (PCR) Not Detected (NotDetected) 11/30/24 Range/Units 02:15 WBC (4.8-10.8) K/ul RBC (4.70-6.10) M/uL Hgb (14.0-18.0) g/dl Hct (42.0-52.0) % MCV (80.0-100.0) fL MCH (25.0-34.0) pg MCHC (32.0-36.0) g/dL RDW Std Deviation (36.4-46.3) fL RDW Coeff of Zoltan (11.5-14.5) % Plt Count (130-400) K/uL MPV (9.4-12.4) fL Immature Gran % (Auto) % Neut % (Auto) % Lymph % (Auto) % [place] % (Auto) % Eos % (Auto) % Baso % (Auto) % Neut # (Auto) (1.40-6.50) K/uL Lymph # (Auto) (1.20-3.40) K/uL [place] # (Auto) (0.11-0.59) K/uL Eos # (Auto) (0.00-0.50) K/uL Baso # (Auto) (0.00-0.20) K/uL Immature Gran # (Auto) (0.01-0.20) K/uL PT (9.0-12.0) Seconds INR (0.9-1.1) APTT (21-31) Seconds PTT Ratio VBG pH (7.36-7.41) VBG pCO2 (38-50) mmHg VBG pO2 mmHg VBG HCO3 mmol/L VBG O2 Saturation % VBG Base Excess mEq/L Sodium (136-145) mmol/L Potassium (3.5-5.1) mmol/L Chloride (98-107) mmol/L Carbon Dioxide (21-32) mmol/L Anion Gap (3-11) BUN (6-23) mg/dl Creatinine (0.6-1.4) mg/dl Est Cr Clr Drug Dosing ml/min eGFR BUN/Creatinine Ratio (10-20) Glucose (70-99(Fasting)) mg/dl Calcium (8.6-10.3) mg/dl Total Bilirubin (0.2-1.0) mg/dl AST (13-39) U/L ALT (7-52) U/L Alkaline Phosphatase (34-104) U/L Troponin I High Sens 31.9 H (0-20) pg/ml B-Natriuretic Peptide (0-100) pg/ml Total Protein (6.0-8.3) gm/dl Albumin (3.4-5.0) gm/dl Globulin (2.5-4.0) gm/dl Albumin/Globulin Ratio (0.9-2) Lipase (11-82) U/L Adenovirus (PCR) (NotDetected) B. pertussis DNA (PCR) (NotDetected) B.parapertussis DNA PCR (NotDetected) C. pneumoniae DNA (PCR) (NotDetected) Coronavirus OC43 (PCR) (NotDetected) Coronavirus HKU1 (PCR) (NotDetected) Coronavirus 229E (PCR) (NotDetected) SARS-CoV-2 (PCR) (NotDetected) Coronavirus NL63 (PCR) (NotDetected) Human Metapneumovir PCR (NotDetected) Influenza Type A (PCR) (NotDetected) Influenza Type B (PCR) (NotDetected) M. pneumoniae (PCR) (NotDetected) Parainfluenza 1 (PCR) (NotDetected) Parainfluenza 2 (PCR) (NotDetected) Parainfluenza 3 (PCR) (NotDetected) Parainfluenza 4 (PCR) (NotDetected) RSV (PCR) (NotDetected) Entero/Rhino (PCR) (NotDetected) Imaging Data Radiologist's Impression: Abdomen/Pelvis CT 11/29/24 23:43 EXAM: CT abd pelvis wo con CLINICAL HISTORY: abd pain/n/v TECHNIQUE: Contiguous axial images were obtained from the level of the diaphragm to the pubic symphysis without intravenous or oral contrast. Coronal and sagittal reconstructions were also performed and indicated to increase the sensitivity for detecting clinically relevant pathology. The CT scan was performed according to ALARA (as low as reasonably achievable). COMPARISON: none FINDINGS: The visualized lung bases show interstitial septal thickening, inhomogeneous attenuation, and bibasal pleural effusions. Cardiomegaly is present. Evaluation of the abdominal and pelvic visceral organs is limited without intravenous contrast. The unenhanced liver, spleen, pancreas, and adrenal glands are grossly unremarkable. The gallbladder has been surgically removed. The kidneys are normal in size and attenuation, without obvious calcification on the left side. There is an approximately 2.5 mm radiodense calculus in the upper pole of the right kidney. There is no hydronephrosis or perinephric stranding. The ureters are normal in caliber. No adenopathy or fluid collections are seen. There are fluid-filled and mildly dilated jejunal loops in the left upper quadrant with mild surrounding fat stranding. There is no abrupt change in the caliber of the bowel loops. Dilatation of bowel loops up to 32 mm is noted. No evidence of focal or diffuse bowel wall thickening is seen. No evidence of inflamed appendix. The aorta is normal in caliber. The urinary bladder is undistended. Pelvic viscera are grossly unremarkable. No aggressive-appearing osseous lesions are identified. Degenerative changes are noted in the visualized spine in the form of marginal osteophytes, endplate irregularities and sclerosis, reduction in disc height, small posterior disc bulges, vacuum phenomenon, and facet arthropathy changes, predominantly at lower lumbar levels. Grade II anterolisthesis of L5 over S1 vertebra is noted with bilateral pars interarticularis defect of the L5 vertebra. IMPRESSION: Fluid-filled and dilated jejunal loops in the left upper quadrant with mild surrounding fat stranding. No abrupt change in the caliber of bowel loops. These findings could represent enteritis changes; close interval follow-up is suggested for possible small bowel obstruction. Nonobstructive right renal calculus. Spondylodegenerative changes in the visualized spine. Cardiomegaly. The visualized lung bases show interstitial septal thickening, inhomogeneous attenuation, and bibasal pleural effusions, which could be due to pulmonary congestion. Electronically signed by Charlie Palumbo 11-30-2024 02:15 AM Chest X-Ray 11/29/24 23:45 EXAM: XR chest 1V portable CLINICAL HISTORY: Chest pain. TECHNIQUE: An X-ray image of the chest was obtained in the AP projection. COMPARISON: 09/21/2024 X-ray. FINDINGS: Pulmonary Parenchyma: Chest leads are identified. Mild haziness is seen in the right lung lower zone. Haziness is seen in the left lung lower zone and at the left costophrenic angle. There is no evidence of consolidation or collapse. No pulmonary nodules are identified. Heart and Mediastinum: The heart size is enlarged. A pacemaker lead is seen in place. There is no mediastinal widening or masses. Prominent vessels are seen at both pretty. Bony Thorax: The bony thorax appears intact, without fractures or deformities. Soft Tissues: The soft tissues overlying the chest wall are unremarkable. IMPRESSION: 1. There is no evidence of consolidation or collapse. 2. Haziness at the left lung lower zone and at the left costophrenic angle is more conspicuous on the current examination. This may be due to cardiomegaly and is less likely due to pleural effusion or thickening. If clinically required, ultrasound may be obtained. 3. Haziness in the right lung lower zone is conspicuous on the current examination and is likely due to overlying soft tissue shadow. 4. There is a redemonstration of prominent vessels in both pretty and in the right infrahilar region, likely due to vascular congestion. 5. There is no significant interval change. Electronically signed by Shiraz García 11-30-2024 02:26 AM MDM Narrative Physical exam and history were performed. Nursing notes, EMR, and Medication List were personally reviewed. No social concerns were identified as barriers to patients care. History was provided by the Patient and EMS. Patient appears to have abdominal pain with nausea and vomiting bringing him to the ER. Patient is generally unwell at baseline. IV access was established and labs were obtained. He was given IV Zofran here in the ER and sent to CT scan for imaging of his abdomen and pelvis. An order was placed for continuous cardiac monitoring. The monitor shows a rate of 82 with normal sinus rhythm. Patient has baseline breathing difficulty and was placed on CPAP as he typically does well with this. With CPAP he was able to lay flat for CT scan. Patient's blood work is as above and was reviewed. He does not have significant elevated white blood cell count, bandemia, or significant electrolyte imbalance. Troponin is elevated, however this seems chronic. BNP is 574 indicating some level of CHF. Chest x-ray and CT scan of his abdomen and pelvis were independently reviewed by myself and radiology. He appears to have enteritis on CT scan. Chest x-ray may show some haziness at the left base. Escalation of care was considered, and felt to be necessary. Case was discussed with my attending, as well as the on-call hospitalist team. The patient has several comorbidities and will likely warrant inpatient evaluation. Please see the hospitalist dictation for further patient course, plan, and disposition. The chart was completed utilizing [employer] Speech Voice Recognition Software. Grammatical errors, random word insertions, pronoun errors, and incomplete sentences are an occasional consequence of this system due to software limitations, ambient noise, and hardware issues. Any formal questions or concerns about the content, text, or information contained within the body of this dictation should be directly addressed to the provider for clarification. Impression & Plan Enteritis, CHF (congestive heart failure), Nausea and vomiting Discharge Plan Visit Data Chief Complaint: Abdominal Pain Stated Complaint: Upper Abdominal Pain ED Provider: Cydney Barton ED Midlevel Provider: Vick Banuelos Discharge Problem: Enteritis, CHF (congestive heart failure), Nausea and vomiting Patient Disposition: Admitted As Inpatient Condition: Fair Discharge Instructions Interventions: ED Discharge Assessment Last Done: 11/30/24 04:45
[2024-11-30] MEDS ORDERED: GLUCAGON FOR INJ 1 MG VIAL SQ PRN (05:30)
[2024-11-30] MEDS ORDERED: ALBUTEROL 0.083% NEBU SOLN 3 ML VIAL INH PRN (05:30)
[2024-11-30] MEDS ORDERED: GLUCOSE 10 TAB/TUBE PO PRN (05:30)
[2024-11-30] MEDS ORDERED: MELATONIN 3 MG TAB PO PRN (05:30)
[2024-11-30] MEDS ORDERED: GLUCOSE 40% GEL 15 GM TUBE PO PRN (05:30)
[2024-11-30] MEDS ORDERED: BUDESONIDE 0.25 MG/2 ML VIAL (PULMICORT) INH PRN (05:30)
[2024-11-30] MEDS ORDERED: LIDOCAINE 5% 1 PATCH TD PRN (05:30)
[2024-11-30] MEDS ORDERED: DEXTROSE 50% 50 ML SYRINGE IV PRN (05:30)
[2024-11-30] MEDS ORDERED: CARBOHYDRATES FOR HYPOGLYCEMIA PO PRN (05:30)
[2024-11-30] MEDS ORDERED: ACETAMINOPHEN 325 MG TAB PO PRN (05:30)
[2024-11-30] MEDS: ISOSORBIDE MONO EXTENDED REL 60 MG TABCR PO SCH (08:46)
[2024-11-30] MEDS: VALSARTAN/SACUBITRIL 103/97MG TAB PO SCH (08:46)
[2024-11-30] MEDS: ATORVASTATIN 10 MG TAB PO SCH (08:46)
[2024-11-30] MEDS: FUROSEMIDE 80 MG TAB PO SCH (08:47)
[2024-11-30] MEDS: ASPIRIN 81 MG ECTAB PO SCH (08:47)
[2024-11-30] MEDS: SPIRONOLACTONE 25 MG TAB PO SCH (08:47)
[2024-11-30] MEDS: METOPROLOL SUCC 25MG EXT REL TAB PO SCH (08:47)
[2024-11-30] MEDS: METOPROLOL SUCC 50MG EXT REL TAB PO SCH (08:47)
[2024-11-30] MEDS: FLUTICASONE/VILANTEROL 100/25MCG 14 PUFFS/INHALER INH SCH (08:48)
[2024-11-30] MEDS: LANTUS PER UNIT CHARGE SQ SCH (08:48)
[2024-11-30] MEDS: ONDANSETRON INJ 2 MG/ML 2 ML VIAL IV PRN (08:50)
[2024-11-30] MEDS: ENOXAPARIN INJ 40 MG/0.4 ML SYR SQ SCH (09:06)
[2024-11-30] MEDS: INSULIN ASPART PER UNIT CHARGE SC SCH (10:14)
[2024-11-30 10:36] LABS: Adenovirus F 40/41 PCR Not Detected (NotDetected); Campylobacter PCR Not Detected (NotDetected); Enteroaggregative E.coli(EAEC) Not Detected (NotDetected); Shiga-like Toxin E.coli (STEC) Not Detected (NotDetected); Vibrio species PCR Not Detected (NotDetected)
[2024-11-30] MEDS ORDERED: IBUPROFEN 200 MG TAB PO PRN (13:43)
--- NOTE | 2024-11-30 14:07 | Hospitalist Progress Note ---
Date of Service November 30, 2024 Assessment & Plan (1) Nausea vomiting and diarrhea: Plan: Suspected viral gastroenteritis etiology. Supportive care. Await stool BioFire results. Pain control measures (2) CHF (congestive heart failure): Plan: Chronic systolic CHF with known ejection fraction of 15%. Currently no exacerbation. (3) Type 2 diabetes mellitus with peripheral neuropathy: Plan: ADA diet. Sliding scale coverage. Basal insulin therapy (4) Obstructive sleep apnea: Plan: Chronic oxygen usage. Stable (5) COPD (chronic obstructive pulmonary disease): Plan: Stable. Continue current medical management Plan Hopeful discharge back to home within the next 2 to 3 days Admission and Anticipated Discharge Date Admission Date: November 30, 2024 Subjective Alert and oriented. He is having continued loose stools and some abdominal discomfort but no vomiting at this time. This appears to be a viral gastroenteritis. Fortunately this is not exacerbation of his CHF which is his usual presentation. Vital signs are stable at this time. Stool BioFire ordered and pending Review of Systems 2 Review of Systems: Constitutionalno fever or chills ENTno blurred vision, no double vision, no epistaxis, no sore throat Respiratoryno cough, no wheezing, no shortness of breath Cardiacno palpitations, no chest pain, no syncope GIintermittent nausea and abdominal pain. Intermittent watery diarrhea. No hematemesis. No melena. No hematochezia . No recent travels GUno urinary retention, no urinary incontinence, no dysuria, no hematuria Musculoskeletalno joint pain, no muscle tenderness Skinno bruising, no rashes, no pruritus Neurono isolated weakness, no paresthesia, no weakness Psychno depression, no anxiety Physical Exam 2 Physical Exam: General-alert and oriented x3, no fever, no chills. Obese HEENT-head atraumatic and normocephalic, pupils equal and reactive to light, extraocular muscles intact Neck-no lymphadenopathy or thyromegaly, trachea midline Chest-clear to auscultation. No rales, wheezing or rhonchi Cardiac-regular rate and rhythm, normal S1 and S2 Abdomen-normal bowel sounds, no hepatosplenomegaly. Diffuse mild tenderness. No masses. No rebound or guarding Extremities-no cyanosis, clubbing, or edema Neuro-cranial nerves II through XII intact, motor and sensory function within normal limits, strength symmetrical, no focal deficits Psych-normal affect, normal mood Results & Data Results & Data Vital Signs (Past 12 Hours) Vital Signs Temp Pulse Pulse Resp BP BP Pulse Ox 11/30/24 11:12 36.4 C L 95 H 20 127/85 96 11/30/24 07:58 36.4 C L 97 H 20 145/90 H 96 11/30/24 07:45 11/30/24 05:12 101 H 11/30/24 05:09 11/30/24 05:09 36.3 C L 150/110 H 98 11/30/24 04:36 67 23 125/104 H 99 11/30/24 04:03 89 24 139/112 H 98 11/30/24 03:30 88 23 136/98 97 11/30/24 03:03 90 18 142/121 H 98 11/30/24 02:27 93 H 23 137/109 H 99 O2 Del Method O2 Flow Rate 11/30/24 11:12 Nasal Cannula 6 11/30/24 07:58 Nasal Cannula 6 11/30/24 07:45 Nasal Cannula 6 11/30/24 05:12 11/30/24 05:09 Nasal Cannula 6 11/30/24 05:09 Nasal Cannula 6 11/30/24 04:36 11/30/24 04:03 11/30/24 03:30 11/30/24 03:03 11/30/24 02:27 Laboratory Results 11/30/24 00:00 11/30/24 00:00 PG Care Time/CCT Total # of Minutes Spent Total Time Spent with Patient: Total time spent is greater than 50% in coordination of care (as documented) at patient's floor/unit and/or counseling patient: Coding Level of Care Code 86959 SUB INP/OBS CARE 3/50MIN Diagnoses Nausea vomiting and diarrhea R11.2; R19.7 CHF (congestive heart failure) I50.9 Heart failure chronicity: acute on chronic Heart failure type: unspecified Type 2 diabetes mellitus with peripheral neuropathy E11.42 Obstructive sleep apnea G47.33 Chronic obstructive pulmonary disease, unspecified COPD type J44.9 (2) CHF (congestive heart failure) Heart failure chronicity: acute on chronic Heart failure type: unspecified Qualified Code(s): I50.9 - Heart failure, unspecified
--- NOTE | 2024-11-30 19:48 | Electrocardiogram Report ---
Test Reason : Blood Pressure : */* mmHG Vent. Rate : 106 BPM Atrial Rate : 106 BPM P-R Int : 172 ms QRS Dur : 118 ms QT Int : 370 ms P-R-T Axes : -26 -9 236 degrees QTcB Int : 491 ms Sinus tachycardia Minimal voltage criteria for LVH, may be normal variant ( Hardin product ) Inferior infarct , age undetermined Abnormal ECG When compared with ECG of 07-Oct-2024 14:52, QRS axis Shifted right Non-specific change in ST segment in Inferior leads Nonspecific T wave abnormality now evident in Inferior leads Confirmed by Harry Bush ([id number]) on 11/30/2024 7:47:48 PM Referred By: REFERRED SELF Confirmed By: Harry Bush
[2024-11-30 20:12] LABS: Cdiff Toxin B Gene (2yr or >) Negative Cdiff Gene (Neg)
[2024-11-30] MEDS: REMOVE LIDODERM PATCH SCH (20:33)
[2024-12-01 03:54] VITALS: RESP 20
--- NOTE | 2024-12-01 07:32 | Hospitalist Progress Note ---
Date of Service December 01, 2024 Assessment & Plan (1) Nausea vomiting and diarrhea: (2) CHF (congestive heart failure): (3) Type 2 diabetes mellitus with peripheral neuropathy: Plan: ADA diet. Sliding scale coverage. Basal insulin therapy (4) Obstructive sleep apnea: Plan: Chronic oxygen usage. Stable (5) COPD (chronic obstructive pulmonary disease): Plan: Stable. Continue current medical management Plan 48yo male with history of NICM (EF of 15-20%, severely dilated LV with severe global hypokinesis of the LV with septal dyskinesis per echo 08/23/2024), paroxysmal VT with single chamber ICD in place, chronic hypoxic respiratory failure on home O2, DM and HTN presenting with nausea, vomiting and diarrhea.Hopeful discharge back to home within the next 2 to 3 days #Gastroenteritis Suspected viral gastroenteritis etiology. Stool BioFire negative supportive care. Caution with volume given cardiomyopathy, pain control measures #Cardiomyopathy/HF R EF, known ejection fraction of 15%. Currently not in exacerbation. Typical home meds include aspirin atorvastatin Farxiga Entresto isosorbide metoprolol, spironolactone + Lasix 80 twice daily #Diabetes he is on sliding scale basal bolus insulin #Chronic respiratory failure continues on Symbicort, butyryl Admission and Anticipated Discharge Date Admission Date: November 30, 2024 Results & Data Results & Data Vital Signs (Past 12 Hours) Vital Signs Temp Pulse Pulse Resp BP Pulse Ox O2 Del Method 12/01/24 03:54 97.7 F 76 20 104/66 95 CPAP 12/01/24 02:57 64 101/65 98 CPAP 12/01/24 01:53 92 H 21 96 11/30/24 22:26 97.7 F 82 18 109/73 94 Nasal Cannula 11/30/24 21:53 81 11/30/24 21:45 Nasal Cannula 11/30/24 20:28 83 118/78 96 Nasal Cannula 11/30/24 19:30 98.2 F 80 18 108/70 95 Nasal Cannula O2 Flow Rate 12/01/24 03:54 12/01/24 02:57 12/01/24 01:53 6 11/30/24 22:26 6 11/30/24 21:53 11/30/24 21:45 6 11/30/24 20:28 6 11/30/24 19:30 6 PG Care Time/CCT Total # of Minutes Spent Total Time Spent with Patient: Total time spent is greater than 50% in coordination of care (as documented) at patient's floor/unit and/or counseling patient: Coding Diagnoses Nausea vomiting and diarrhea R11.2; R19.7 CHF (congestive heart failure) I50.9 Heart failure chronicity: acute on chronic Heart failure type: unspecified Type 2 diabetes mellitus with peripheral neuropathy E11.42 Obstructive sleep apnea G47.33 Chronic obstructive pulmonary disease, unspecified COPD type J44.9 (2) CHF (congestive heart failure) Heart failure chronicity: acute on chronic Heart failure type: unspecified Qualified Code(s): I50.9 - Heart failure, unspecified
[2024-12-01 08:36] LABS: Hematocrit (blood only) 48.0 % (42.0-52.0); Hemoglobin 15.5 g/dl (14.0-18.0); Mean Corpuscular Hemoglobin 29.3 pg (25.0-34.0); Mean Corpuscular Volume 90.7 fL (80.0-100.0); Platelet Count 178 K/uL (130-400); RDW Standard Deviation 47.3 fL (36.4-46.3); Red Blood Count 5.29 M/uL (4.70-6.10); White Blood Count 10.55 K/ul (4.8-10.8)
[2024-12-01 08:56] LABS: Anion Gap 8.0 (3-11); Blood Urea Nitrogen 15.0 mg/dl (6-23); Calcium 8.7 mg/dl (8.6-10.3); Carbon Dioxide 27.0 mmol/L (21-32); Chloride 102.0 mmol/L (98-107); Creatinine Clr Calc Pharmacy 118.7 ml/min; Glucose 135.0 mg/dl (70-99(Fasting)); Potassium 4.2 mmol/L (3.5-5.1); Sodium 137.0 mmol/L (136-145)
[2024-12-01 11:24] VITALS: TEMP 97.2; O2SAT 96
--- NOTE | 2024-12-01 13:01 | Discharge Summary ---
Discharge Summary Date of Service December 01, 2024 Principal Dx & Hospital Course #1 = Principal Diagnosis (1) Nausea vomiting and diarrhea: (2) CHF (congestive heart failure): (3) Type 2 diabetes mellitus with peripheral neuropathy: (4) Obstructive sleep apnea: (5) COPD (chronic obstructive pulmonary disease): Stable. Continue current medical management Plan 48yo male with history of NICM (EF of 15-20%, severely dilated LV with severe global hypokinesis of the LV with septal dyskinesis per echo 08/23/2024), paroxysmal VT with single chamber ICD in place, chronic hypoxic respiratory failure on home O2, DM and HTN presenting with nausea, vomiting and diarrhea.Hopeful discharge back to home within the next 2 to 3 days #Gastroenteritis Suspected viral gastroenteritis etiology. Stool BioFire n egative, symptoms resolved eating regular meals #Cardiomyopathy/HF R EF, known ejection fraction of 15%. Currently not in exacerbation. Typical home meds include aspirin atorvastatin Farxiga Entresto isosorbide metoprolol, spironolactone + Lasix 80 twice daily #Diabetes he is on sliding scale basal bolus insulin #Chronic respiratory failure continues on Symbicort, butyryl Pt is stable for discharge Notes For Next Care Provider follow up to avoid readmission pt has high risk of readmission due to heart failure Admission HPI Per Admitting Provider Alok Huff is a 48yo male with history of NICM (EF of 15-20%, severely dilated LV with severe global hypokinesis of the LV with septal dyskinesis per echo 08/23/2024), paroxysmal VT with single chamber ICD in place, chronic hypoxic respiratory failure on home O2, DM and HTN presenting with nausea, vomiting and diarrhea. Patient reports two days of vomiting- nonbloody emesis as well as diarrhea and lower abdominal pain. Also with chills. No chest pain, cough. Does have some worsening of his baseline SOB ER Course: Zofran Discharge Exam pleasant, no distress breathing unlabored eating well Discharge Plan Discharge Items Patient Disposition: Home - Self-Care Reason For Visit: N/V/D Discharge Diagnosis: viral gastroenteritis, resolving Condition on Discharge: Fair Activity: Resume your previous activity Non-emergency contact: Primary Care Provider Call non-emergency contact if: your symptoms worsen Follow-up/Referrals: Gosia Martinez MD [Primary Care Provider] - 12/09/24 1:30 pm Diet: Low Sodium (2gm) Addtl Attending Provider Instructions: please follow up with your primary care provider Pending Studies at Discharge: No Stand-Alone Forms: My [facility] [employer], Smoking Cessation Medications and DC Order Prescriptions: Continued (DME) FreeStyle Karla 3 [place] Misc See Rx Instructions .Route Qty: 1 1RF Rx Instructions: moniotr blood sugar spironolactone 50 mg tablet 50 mg PO BID Qty: 60 1RF metoprolol succinate 25 mg tablet extended release 24 hr 25 mg PO BID Qty: 60 0RF Rx Instructions: TOTAL DOSE 125 MG--TAKES WITH 100 MG TAB. (DME) Portable Oxygen Misc See Rx Instructions .Route Qty: 1 0RF Rx Instructions: Portable oxygen concentrator atorvastatin 10 mg tablet 10 mg PO DAILY Qty: 90 3RF alcohol swabs [Alcohol Pads] Pads, Medicated 5 pad topical DAILY Qty: 500 3RF insulin lispro [Humalog KwikPen Insulin] 100 unit/mL insulin pen 10 unit subcut TID Qty: 15 5RF (DME) CPAP Supplies Misc See Rx Instructions .Route Qty: 1 0RF Rx Instructions: refitting of nasal mask budesonide 0.25 mg/2 mL suspension for nebulization 0.25 mg inhalation DAILY PRN (Reason: Shortness Of Breath) budesonide-formoterol [Symbicort] 160-4.5 mcg/actuation HFA aerosol inhaler 2 inh inhalation BID Qty: 3 3RF Rx Instructions: 2 puffs twice per day. Rinse mouth after each use (DME) OneTouch Verio test strips Strip See Rx Instructions miscellaneous .MEDSUPPLY Qty: 100 5RF Rx Instructions: check 3x a day (DME) lancets [OneTouch Delica Plus Lancet] 30 gauge misc See Rx Instructions .ROUTE .MEDSUPPLY Qty: 100 5RF Rx Instructions: use new lancet 3x a day (DME) blood-glucose meter [OneTouch Verio Flex meter] Misc See Rx Instructions .ROUTE .MEDSUPPLY Qty: 1 0RF Rx Instructions: As directed (DME) Oxygen Home Liters Per Minute See Rx Instructions .MEDSUPPLY Qty: 1 0RF Rx Instructions: Home Oxygen concentrator with portability, test for conserving device. 2-4LMP via n/c at rest/sleep and 2-4 LPM via n/c with exertion; VÍCTOR 99. tirzepatide 7.5 mg/0.5 mL pen injector 7.5 mg subcut Q7D 30 Days Qty: 2 3RF Rx Instructions: WEDNESDAYS insulin glargine 100 unit/mL (3 mL) insulin pen 50 unit subcut BID (DME) pen needle, diabetic [Comfort EZ Pen [place]] 31 gauge x 5/16" needle See Rx Instructions .Route Qty: 500 3RF Rx Instructions: use 5 x daily nystatin 100,000 unit/gram powder 1 applic topical BID PRN (Reason: Skin Irritation) Qty: 60 0RF triamcinolone acetonide 0.025 % cream 1 applic topical TID PRN (Reason: rash) Qty: 454 0RF (DME) Thumb Friendly G7 Sensor Device See Rx Instructions .ROUTE .MEDSUPPLY Qty: 3 11RF Rx Instructions: change sensor every 10 days isosorbide mononitrate 60 mg tablet extended release 24 hr 60 mg PO DAILY Qty: 90 1RF metoprolol succinate 100 mg tablet extended release 24 hr 100 mg PO BID Qty: 180 1RF Rx Instructions: TOTAL DOSE 125 MG--TAKES WITH 25 MG TAB. dapagliflozin propanediol [Farxiga] 10 mg tablet 10 mg PO DAILY Qty: 90 1RF Entresto 97-103 mg tablet 1 tab PO BID Qty: 180 1RF lidocaine 5 % adhesive patch,medicated 1 patch topical DAILY PRN (Reason: Pain) Qty: 90 1RF mupirocin 2 % ointment 1 applic topical TID Qty: 22 1RF nitroglycerin [Nitrostat] 0.4 mg tablet, sublingual 0.4 mg sublingual UD PRN (Reason: Chest Pain) aspirin [Neisha Low Dose Aspirin] 81 mg tablet,delayed release (DR/EC) 81 mg PO QAM albuterol sulfate 2.5 mg /3 mL (0.083 %) solution for nebulization 2.5 mg inhalation Q6H PRN (Reason: Shortness Of Breath Or Wheezing) Rx Instructions: Use every 6 hours as needed with nebulizer albuterol sulfate 90 mcg/actuation HFA aerosol inhaler 1 inh inhalation QID PRN (Reason: Shortness Of Breath Or Wheezing) magnesium oxide 400 mg (241.3 mg magnesium) tablet 400 mg PO QAM trolamine salicylate [Myoflex] 10 % Cream 1 applic EXT BID PRN (Reason: left sided neck pain) Qty: 35.4 0RF furosemide 80 mg tablet 80 mg PO BID Qty: 60 0RF Discharge Orders: Discharge Order (Routine); Ordered 12/01/24 Ordered By: Shon Gonzalez Admission Data Admit Date/Time: 11/30/24 03:30 Attending Provider: Shon Gonzalez Admit Provider: Ciarra Burr Primary Care Provider: Gosia Martinez Other Providers: Ciarra Burr Hospital Stay Data Consultations 11/30/24 02:51 ED Decision to Admit Stat Diagnostic Imagining Performed 11/29/24 23:43 CT abd pelvis wo con Stat Pending Results Patient Have Any Pending Studies at Discharge: No Discharge Instructions Given to Patient (Per Discharging Provider) please follow up with your primary care provider Total Time Total Time Spent Total Time Spent (In Minutes): I personally have spent greater than 30 minutes of time on the patient discharge today including review of tests, documentation, exam, and discussing treatment plan moving forward with the patient. Coding Level of Care Code 48397 INP/OBS DISCH >30 MIN Diagnoses Nausea vomiting and diarrhea R11.2; R19.7 CHF (congestive heart failure) I50.9 Heart failure chronicity: acute on chronic Heart failure type: unspecified Type 2 diabetes mellitus with peripheral neuropathy E11.42 Obstructive sleep apnea G47.33 Chronic obstructive pulmonary disease, unspecified COPD type J44.9
[2024-12-01 14:32] VITALS: BP 104/66; PULSE 75
== END 2024-12-01 15:54 | disposition home or self-care (01) | DRG 392 ==
LOC: ED 23:36 → INTOOBSV 11-30 03:30 → SUATTDRO 11-30 03:30 → 2N 11-30 03:30

== ENCOUNTER 2025-01-10 20:29 | Observation (INO) ==
--- NOTE | 2025-01-10 20:59 | Emergency Department Note ---
Impression & Plan Chest pain, Acute exacerbation of CHF (congestive heart failure), Elevated troponin, Elevated brain natriuretic peptide (BNP) level ED Provider Note HISTORY OF PRESENT ILLNESS: Patient is a 49-year-old male presenting with chest pain and shortness of breath. Patient reports he was out shopping and running errands when he attempted to return home and developed substernal chest pain that radiated up into his neck and became short of breath. He reports he has been having a cough productive of some white sputum recently. Patient denies any blood in his sputum. He states that he has been taking his torsemide as prescribed. Denies any notable lower extremity edema. He does report having a rash on his bilateral lower extremities that started 1.5 weeks ago. Denies any fevers or chills at home. He currently rates his chest pain a 9 out of 10 but is sitting upright in bed in no acute distress. He wears supplemental oxygen at baseline. He denies any recent fevers. Denies any sick contact exposures. He was given sublingual nitro with EMS and states his pain is still a 9 out of 10. Patient was baseline 4 to 5 L nasal cannula at all times. ROS: as above PHYSICAL EXAM: Constitutional: Patient appears in no acute distress. Morbidly obese HENT: Head: Normocephalic and atraumatic. Eyes: EOMI, PERRL Mouth/Throat: Mucous membranes moist. Neck: Trachea midline. Neck supple. Cardiovascular: RRR, No murmurs, rubs or gallops. Intact distal pulses. Pulmonary/Chest: No respiratory distress. Breath sounds clear and equal bilaterally. No wheezes or rales. Abdominal: Abdomen soft, no tenderness, rebound or guarding. Musculoskeletal: No edema, tenderness or deformity noted. Skin: Warm and dry. No rash, erythema, pallor or cyanosis Psychiatric: Appropriate mood and affect for situation. Neurological: Alert and keenly responsive. CN II-XII grossly intact, moving all extremities equally and fully. MDM: - Vitals signs showed hypertension and tachycardia. - History obtained via patient. History as above. - Chronic conditions affecting care: HFrEF; DM-2; MARIELENA; chronic respiratory failure (on 4L NC at baseline) - Differential diagnoses include, but are not limited to: Acute coronary syndrome; pulmonary embolism; dissection; tension pneumothorax; esophageal rupture; pneumonia - Order placed for continuous cardiac monitoring. At this time, monitor showed rate of 86 bpm with normal sinus rhythm, per my interpretation. - External medical records reviewed. Primary care visit note dated 12/09/2024 was reviewed. Patient was seen for follow-up/transitional care visit. Patient has presented to the ER with upper abdominal pain, nausea and vomiting. He had what appeared to be enteritis on imaging and CHF on chest x-ray. - EKG image interpreted by myself showed normal sinus rhythm. Rate tachycardic at 100 bpm. QT 368. No acute ischemic changes. Noted to have an incomplete left bundle branch block, which has been seen on previous EKGs. - Laboratory workup interpreted by myself showed normal WBC; normal PT/INR; stable electrolytes other than hypocalcemia (Ca 8.2); elevated troponin (28.6 - about patient's baseline); elevated BNP (822); normal AST/ALT; normal lipase - CXR image viewed interpreted by myself showed pulmonary vascular congestion, per my interpretation. Radiology notes prominent central pulmonary vasculature with mild perihilar and basilar edema. - COVID/flu/RSV negative - Patient complaining of 9 out of 10 chest pain in the emergency department. Given a sublingual nitroglycerin. On reassessment at 2224, the patient reports his chest pain has improved but he is still feeling very short of breath with ambulation. - Given 40 mg IV lasix. - Discussion was had with case preparer and liner about patient's case and need for admission - Hospitalist consulted for admission - Patient admitted to [facility] service for further evaluation and management. ASSESSMENT AND PLAN: Diagnosis: chest pain; acute CHF exacerbation; elevated troponin; elevated BNP Plan: admit Past Med/Surg History Problem List (Updated 01/10/25 @ 22:32 by Lexus Santana MD) Elevated brain natriuretic peptide (BNP) level (Acute) Elevated troponin (Acute) Acute exacerbation of CHF (congestive heart failure) (Acute) Chest pain (Acute) Thrombocytopenia (Acute) Hypertensive emergency (Acute) NYHA class 3 acute on chronic systolic heart failure Uncontrolled hypertension Acute on chronic respiratory failure with hypoxia (Acute) Hypomagnesemia (Acute) Elevated troponin (Acute) Chest pain (Acute) Hypokalemia Acute on chronic systolic CHF (congestive heart failure) (Acute) Acute kidney failure Left knee pain Elevated brain natriuretic peptide (BNP) level (Acute) Hypomagnesemia (Acute) Acute exacerbation of CHF (congestive heart failure) (Acute) Venous stasis dermatitis Non-sustained ventricular tachycardia (Acute) Pulmonary edema (Acute) Lightheadedness (Acute) Dyspnea (Acute) Acute on chronic heart failure with reduced ejection fraction (HFrEF, <= 40%) Periapical abscess Pulmonary edema (Acute) Hypomagnesemia (Acute) Diabetic peripheral neuropathy Non-proliferative diabetic retinopathy, both eyes Uncontrolled diabetes mellitus with hyperglycemia Normocytic anemia Poor intravenous access Chronic anticoagulation Diabetes mellitus type II, uncontrolled (Chronic) Urinary bladder incontinence Hx of local infection of skin and subcutaneous tissue Ambulatory dysfunction (Chronic) Recurrent infection of skin Pulmonary nodule V tach (Acute) Hemoptysis (Acute) Vitamin D deficiency Medical History Hypertension Type 2 diabetes mellitus with microalbuminuria HFrEF (heart failure with reduced ejection fraction) Chronic respiratory failure Chronic respiratory failure with hypoxia Type 2 diabetes mellitus with obesity Morbid obesity with BMI of 50.0-59.9, adult Hypertension Non-sustained ventricular tachycardia Obstructive sleep apnea NICM (nonischemic cardiomyopathy) Pt admitted for elective ICD. Underwent procedure without any complications monitored over night and discharged home. Combined systolic and diastolic heart failure Nonischemic cardiomyopathy, unclear etiology. Difficult to manage. Integrated into heart failure clinic. Frequent admissions for heart failure exacerbations. Echo (05/31) EF=25-30% with mod to severe global hypokinesis, basal kelsi-septal akinetic wall, LVH, RVSP elevated at 30-40mmHg, and mod dilated ascending aorta. Managed medically with ASA + BB + ARB/Neprilysin inhibitor (Entresto) + high dose furosemide (160mg BID) + metolazone (3x weekly). Considering ICD given EF. COPD (chronic obstructive pulmonary disease) Hypomagnesemia Medical non-compliance Intellectual disability Chronic dental pain Small bowel obstruction Housing instability, currently housed, at risk for homelessness Hearing loss of both ears Nonproliferative retinopathy due to secondary diabetes Dilatation of thoracic aorta Iliac aneurysm Vitamin D insufficiency Previously deficient, taking Vit D supplementation Umbilical hernia Lung nodule Fatty liver Surgical History AICD (automatic cardioverter/defibrillator) present H/O oral surgery History of carpal tunnel surgery S/P tonsillectomy History of cholecystectomy Family History Father , age 57 of an SD. Heart disease Myocardial infarction Mother , age 67 of a ruptured neck vessel Sudden Other Depression Lung disease No pertinent family history Denies family history of Ovarian cancer Prostate cancer Breast cancer Colorectal cancer Social History Smoking Status: Former smoker Tobacco Type: Declines Age Started Using Tobacco: 14; Age Quit Using Tobacco: 18; packs per day: 1; Second Hand Exposure: No; Do You Dip or Chew Tobacco: No; Hx Alcohol Use: No Hx Substance Use: No Preferred Language: Yi Communication Ability: Effective Visual Impairment: No Limitations Hearing Ability: Normal Analytical Manager Required: No Beliefs That Will Affect Care: None marital status: Current Living Situation: Spouse Current Living Situation Comment: Home with spouse current occupational status: unemployed How many Children do You have: 0 Feels Safe at Home: Yes Childhood Exposure to Second-Hand Smoke: Yes Dental Care, Regularly: Yes Physical Activity Frequency: Does not Exercise Seatbelt Use: never Sunscreen Use: No Assistive Devices: Cane, CPAP, Oxygen - at Night, Scooter/Electric Scooter and Walker Allergies Allergies Allergy/AdvReac Type Severity Reaction Status Date / Time albuterol Allergy Severe proair Verified 12/09/24 13:13 "trouble taking breaths" ceftriaxone Allergy Severe SHORTNESS Verified 12/09/24 13:13 OF BREATH lidocaine Allergy Severe SHORTNESS Verified 12/09/24 13:13 OF BREATH, diaphoretic, hives mushroom Allergy Severe Anaphylaxis Verified 12/09/24 13:13 procaine Allergy Severe SHORTNESS Verified 12/09/24 13:13 OF BREATH, diaphoretic, hives amoxicillin Allergy Intermediate HIVES/FACIAL Verified 12/09/24 13:13 SWELLING clavulanic acid Allergy Intermediate HIVES/FACIAL Verified 12/09/24 13:13 SWELLING lisinopril Allergy Intermediate HIVES Verified 12/09/24 13:13 shellfish derived Allergy Unknown Unknown Verified 12/09/24 13:13 acetaminophen AdvReac Mild NAUSEA Verified 12/09/24 13:13 Fish Containing Products AdvReac Unknown Unknown Verified 12/09/24 13:13 Home Meds Home Medications Medication Instructions Recorded Confirmed nitroglycerin 0.4 mg sublingual 0.4 mg sublingual UD PRN Chest Pain 04/24/19 12/09/24 tablet (Nitrostat) aspirin 81 mg tablet,delayed 81 mg PO QAM 06/16/21 12/09/24 release (Neisha Low Dose Aspirin) albuterol sulfate 2.5 mg/3 mL 2.5 mg inhalation Q6H PRN 12/02/21 12/09/24 (0.083 %) solution for nebulization Shortness Of Breath Or Wheezing budesonide 0.25 mg/2 mL suspension 0.25 mg inhalation DAILY PRN 09/15/22 12/09/24 for nebulization Shortness Of Breath albuterol sulfate 90 mcg/actuation 1 inh inhalation QID PRN Shortness 10/12/23 12/09/24 aerosol inhaler Of Breath Or Wheezing insulin glargine 100 unit/mL (3 50 unit subcut BID 04/28/24 12/09/24 mL) subcutaneous pen magnesium oxide 400 mg (241.3 mg 400 mg PO QAM 08/22/24 12/09/24 magnesium) tablet Previous Rx's Medication Instructions Recorded blood-glucose meter (OneTouch #1 ea 10/12/22 Verio Flex Meter) lancets 30 gauge (OneTouch Delica #100 ea 10/12/22 Plus Lancet) blood sugar diagnostic (OneTouch #100 ea 01/17/23 Verio test strips) trolamine salicylate 10 % topical 1 applic EXT BID PRN left sided 11/06/23 cream (Myoflex) neck pain #35.4 grams blood-glucose,scales inspector,cont #1 ea 01/14/24 (FreeStyle Karla 3 Plessis) Farxiga 10 mg tablet 10 mg PO DAILY #90 tabs 04/28/24 (dapagliflozin propanediol) isosorbide mononitrate 60 mg 60 mg PO DAILY #90 tabs 04/28/24 tablet,extended release 24 hr metoprolol succinate 100 mg 100 mg PO BID #180 tabs 04/28/24 tablet,extended release 24 hr sacubitril 97 mg-valsartan 103 mg 1 tab PO BID #180 tabs 04/28/24 tablet (Entresto) spironolactone 50 mg tablet 50 mg PO BID #60 tabs 06/24/24 metoprolol succinate 25 mg 25 mg PO BID #60 tabs 07/15/24 tablet,extended release 24 hr Portable Oxygen #1 ea 08/20/24 atorvastatin 10 mg tablet 10 mg PO DAILY #90 tabs 09/11/24 pen needle, diabetic 31 gauge x #500 ea 09/26/24 5/16" (Comfort EZ Pen Haskell) alcohol swabs (Alcohol Pads) 5 pad topical DAILY #500 ea 09/29/24 insulin lispro 100 unit/mL 10 unit (0.1 mL) subcut TID #15 mL 10/01/24 subcutaneous pen (Humalog KwikPen (U-100) Insulin) nystatin 100,000 unit/gram topical 1 applic topical BID PRN Skin 10/07/24 powder Irritation #60 grams triamcinolone acetonide 0.025 % 1 applic topical TID PRN rash #454 10/07/24 topical cream grams lidocaine 5 % topical patch 1 patch topical DAILY PRN Pain #90 10/20/24 ea mupirocin 2 % topical ointment 1 applic topical TID #22 grams 10/20/24 tirzepatide 7.5 mg/0.5 mL 7.5 mg (0.5 mL) subcut Q7D 30 days 10/20/24 subcutaneous pen injector #2 mL CPAP Supplies #1 ea 11/18/24 blood-glucose sensor (Dexcom G7 #3 ea 11/27/24 Sensor device) furosemide 80 mg tablet 80 mg PO BID #60 tabs 12/04/24 insulin pump cart,auto,BT,G6/7 #15 ea 12/04/24 (Omnipod 5 G6-G7 Pods (Gen 5) subcutaneous cartridge) insulin pump cartridge,auto #1 ea 12/04/24 dose,BT,G6/G7 with controller subcutaneous (Omnipod 5 G6-G7 Intro Kit(Gen 5) subcutaneous cartridge and controller) Oxygen Home #1 ea 12/09/24 Symbicort 160 mcg-4.5 2 inh inhalation BID #3 Inhalers 12/09/24 mcg/actuation HFA aerosol inhaler (budesonide-formoterol) insulin lispro 100 unit/mL 80 unit (0.8 mL) continuous 12/09/24 subcutaneous solution (Humalog subcutaneous infusion DAILY #24 mL U-100 Insulin) insulin syringe,safety needle 1 mL #100 ea 12/11/24 31 gauge x 15/64" (BD SafetyGlide Insulin Syringe) Results & Data (ED) Vital Signs Vital Signs - 24 hr 01/10/25 20:36 01/10/25 20:36 01/10/25 20:36 Temperature 36.8 C Temperature Source Oral Pulse Rate 94 H 93 H Pulse Rate [Right Finger] Pulse Rate from SpO2 Sensor Pulse Rhythm Regular Regular Pulse Rhythm [Right Finger] Pulse Strength Normal Pulse Strength [Right Finger] Respiratory Rate 21 26 H Respiratory Effort / Characteristics Non-Labored Non-Labored Respiratory Depth Normal Normal Respiratory Pattern Regular Blood Pressure 136/107 H Blood Pressure [Right Arm] Blood Pressure Mean 116 Blood Pressure Mean [Right Arm] Blood Pressure Position Sitting Blood Pressure Position [Right Arm] Pulse Oximetry 98 96 Oxygen Delivery Method Nasal Cannula Nasal Cannula Nasal Cannula Oxygen Flow Rate 6 6 6 Sepsis Recent Fever Within 48 Hours No Sepsis New/Unexplained Change in Mental Status No Sepsis Action Taken by Nursing No Action Required Oxygen Flow Rate - Titration Pulse Oximetry Post Tiitration 01/10/25 20:37 01/10/25 20:37 01/10/25 20:37 Temperature Temperature Source Pulse Rate 98 H Pulse Rate [Right Finger] Pulse Rate from SpO2 Sensor Pulse Rhythm Pulse Rhythm [Right Finger] Pulse Strength Pulse Strength [Right Finger] Respiratory Rate Respiratory Effort / Characteristics Respiratory Depth Respiratory Pattern Blood Pressure 136/107 H 136/107 H Blood Pressure [Right Arm] Blood Pressure Mean 113 113 Blood Pressure Mean [Right Arm] Blood Pressure Position Blood Pressure Position [Right Arm] Pulse Oximetry Oxygen Delivery Method Oxygen Flow Rate Sepsis Recent Fever Within 48 Hours Sepsis New/Unexplained Change in Mental Status Sepsis Action Taken by Nursing Oxygen Flow Rate - Titration Pulse Oximetry Post Tiitration 01/10/25 20:37 01/10/25 20:37 01/10/25 20:37 Temperature Temperature Source Pulse Rate Pulse Rate [Right Finger] Pulse Rate from SpO2 Sensor Pulse Rhythm Pulse Rhythm [Right Finger] Pulse Strength Pulse Strength [Right Finger] Respiratory Rate Respiratory Effort / Characteristics Respiratory Depth Respiratory Pattern Blood Pressure 136/107 H 136/107 H 136/107 H Blood Pressure [Right Arm] Blood Pressure Mean 113 113 113 Blood Pressure Mean [Right Arm] Blood Pressure Position Blood Pressure Position [Right Arm] Pulse Oximetry Oxygen Delivery Method Oxygen Flow Rate Sepsis Recent Fever Within 48 Hours Sepsis New/Unexplained Change in Mental Status Sepsis Action Taken by Nursing Oxygen Flow Rate - Titration Pulse Oximetry Post Tiitration 01/10/25 20:39 01/10/25 21:00 01/10/25 21:00 Temperature Temperature Source Pulse Rate 97 H 97 H Pulse Rate [Right Finger] Pulse Rate from SpO2 Sensor 97 H 99 H Pulse Rhythm Pulse Rhythm [Right Finger] Pulse Strength Pulse Strength [Right Finger] Respiratory Rate 10 L 21 Respiratory Effort / Characteristics Respiratory Depth Respiratory Pattern Blood Pressure 130/94 Blood Pressure [Right Arm] Blood Pressure Mean 105 Blood Pressure Mean [Right Arm] Blood Pressure Position Blood Pressure Position [Right Arm] Pulse Oximetry 97 97 Oxygen Delivery Method Oxygen Flow Rate Sepsis Recent Fever Within 48 Hours Sepsis New/Unexplained Change in Mental Status Sepsis Action Taken by Nursing Oxygen Flow Rate - Titration Pulse Oximetry Post Tiitration 01/10/25 21:00 01/10/25 21:00 01/10/25 21:00 Temperature Temperature Source Pulse Rate Pulse Rate [Right Finger] Pulse Rate from SpO2 Sensor Pulse Rhythm Pulse Rhythm [Right Finger] Pulse Strength Pulse Strength [Right Finger] Respiratory Rate Respiratory Effort / Characteristics Respiratory Depth Respiratory Pattern Blood Pressure 130/94 130/94 130/94 Blood Pressure [Right Arm] Blood Pressure Mean 105 105 105 Blood Pressure Mean [Right Arm] Blood Pressure Position Blood Pressure Position [Right Arm] Pulse Oximetry Oxygen Delivery Method Oxygen Flow Rate Sepsis Recent Fever Within 48 Hours Sepsis New/Unexplained Change in Mental Status Sepsis Action Taken by Nursing Oxygen Flow Rate - Titration Pulse Oximetry Post Tiitration 01/10/25 21:00 01/10/25 21:06 01/10/25 21:36 Temperature Temperature Source Pulse Rate 94 H Pulse Rate [Right Finger] Pulse Rate from SpO2 Sensor 94 H Pulse Rhythm Pulse Rhythm [Right Finger] Pulse Strength Pulse Strength [Right Finger] Respiratory Rate 24 Respiratory Effort / Characteristics Respiratory Depth Respiratory Pattern Blood Pressure 130/94 Blood Pressure [Right Arm] Blood Pressure Mean 105 Blood Pressure Mean [Right Arm] Blood Pressure Position Blood Pressure Position [Right Arm] Pulse Oximetry 99 84 L Oxygen Delivery Method Nasal Cannula Oxygen Flow Rate 6 Sepsis Recent Fever Within 48 Hours Sepsis New/Unexplained Change in Mental Status Sepsis Action Taken by Nursing Oxygen Flow Rate - Titration 4 Pulse Oximetry Post Tiitration 97 01/10/25 21:47 01/10/25 21:48 01/10/25 21:49 Temperature Temperature Source Pulse Rate 95 H Pulse Rate [Right Finger] 89 Pulse Rate from SpO2 Sensor 88 Pulse Rhythm Pulse Rhythm [Right Finger] Regular Pulse Strength Pulse Strength [Right Finger] Normal Respiratory Rate 22 18 Respiratory Effort / Characteristics Non-Labored Respiratory Depth Normal Respiratory Pattern Regular Blood Pressure 132/85 Blood Pressure [Right Arm] 132/85 Blood Pressure Mean 96 Blood Pressure Mean [Right Arm] 100 Blood Pressure Position Blood Pressure Position [Right Arm] Sitting Pulse Oximetry 97 93 Oxygen Delivery Method Nasal Cannula Oxygen Flow Rate 6 Sepsis Recent Fever Within 48 Hours Sepsis New/Unexplained Change in Mental Status Sepsis Action Taken by Nursing Oxygen Flow Rate - Titration Pulse Oximetry Post Tiitration 01/10/25 21:49 01/10/25 21:49 01/10/25 21:49 Temperature Temperature Source Pulse Rate Pulse Rate [Right Finger] Pulse Rate from SpO2 Sensor Pulse Rhythm Pulse Rhythm [Right Finger] Pulse Strength Pulse Strength [Right Finger] Respiratory Rate Respiratory Effort / Characteristics Respiratory Depth Respiratory Pattern Blood Pressure 132/85 132/85 132/85 Blood Pressure [Right Arm] Blood Pressure Mean 96 96 96 Blood Pressure Mean [Right Arm] Blood Pressure Position Blood Pressure Position [Right Arm] Pulse Oximetry Oxygen Delivery Method Oxygen Flow Rate Sepsis Recent Fever Within 48 Hours Sepsis New/Unexplained Change in Mental Status Sepsis Action Taken by Nursing Oxygen Flow Rate - Titration Pulse Oximetry Post Tiitration 01/10/25 21:49 01/10/25 22:00 01/10/25 22:00 Temperature Temperature Source Pulse Rate 88 Pulse Rate [Right Finger] Pulse Rate from SpO2 Sensor 80 Pulse Rhythm Pulse Rhythm [Right Finger] Pulse Strength Pulse Strength [Right Finger] Respiratory Rate 26 H Respiratory Effort / Characteristics Respiratory Depth Respiratory Pattern Blood Pressure 132/85 118/85 Blood Pressure [Right Arm] Blood Pressure Mean 96 96 Blood Pressure Mean [Right Arm] Blood Pressure Position Blood Pressure Position [Right Arm] Pulse Oximetry 92 Oxygen Delivery Method Oxygen Flow Rate Sepsis Recent Fever Within 48 Hours Sepsis New/Unexplained Change in Mental Status Sepsis Action Taken by Nursing Oxygen Flow Rate - Titration Pulse Oximetry Post Tiitration 01/10/25 22:00 01/10/25 22:00 01/10/25 22:00 Temperature Temperature Source Pulse Rate Pulse Rate [Right Finger] Pulse Rate from SpO2 Sensor Pulse Rhythm Pulse Rhythm [Right Finger] Pulse Strength Pulse Strength [Right Finger] Respiratory Rate Respiratory Effort / Characteristics Respiratory Depth Respiratory Pattern Blood Pressure 118/85 118/85 118/85 Blood Pressure [Right Arm] Blood Pressure Mean 96 96 96 Blood Pressure Mean [Right Arm] Blood Pressure Position Blood Pressure Position [Right Arm] Pulse Oximetry Oxygen Delivery Method Oxygen Flow Rate Sepsis Recent Fever Within 48 Hours Sepsis New/Unexplained Change in Mental Status Sepsis Action Taken by Nursing Oxygen Flow Rate - Titration Pulse Oximetry Post Tiitration 01/10/25 22:00 01/10/25 22:30 01/10/25 22:30 Temperature Temperature Source Pulse Rate Pulse Rate [Right Finger] Pulse Rate from SpO2 Sensor Pulse Rhythm Pulse Rhythm [Right Finger] Pulse Strength Pulse Strength [Right Finger] Respiratory Rate Respiratory Effort / Characteristics Respiratory Depth Respiratory Pattern Blood Pressure 118/85 129/86 129/86 Blood Pressure [Right Arm] Blood Pressure Mean 96 101 101 Blood Pressure Mean [Right Arm] Blood Pressure Position Blood Pressure Position [Right Arm] Pulse Oximetry Oxygen Delivery Method Oxygen Flow Rate Sepsis Recent Fever Within 48 Hours Sepsis New/Unexplained Change in Mental Status Sepsis Action Taken by Nursing Oxygen Flow Rate - Titration Pulse Oximetry Post Tiitration 01/10/25 23:00 Temperature Temperature Source Pulse Rate 86 Pulse Rate [Right Finger] Pulse Rate from SpO2 Sensor 99 H Pulse Rhythm Pulse Rhythm [Right Finger] Pulse Strength Pulse Strength [Right Finger] Respiratory Rate Respiratory Effort / Characteristics Respiratory Depth Respiratory Pattern Blood Pressure 129/86 Blood Pressure [Right Arm] Blood Pressure Mean 100 Blood Pressure Mean [Right Arm] Blood Pressure Position Blood Pressure Position [Right Arm] Pulse Oximetry 93 Oxygen Delivery Method Oxygen Flow Rate Sepsis Recent Fever Within 48 Hours Sepsis New/Unexplained Change in Mental Status Sepsis Action Taken by Nursing Oxygen Flow Rate - Titration Pulse Oximetry Post Tiitration Laboratory Data 01/10/25 20:40 01/10/25 20:40 Lab Results 01/10/25 Range/Units 20:40 WBC 7.74 (4.8-10.8) K/ul RBC 4.71 (4.70-6.10) M/uL Hgb 14.4 (14.0-18.0) g/dL Hct 42.1 (42.0-52.0) % MCV 89.4 (80.0-100.0) fL MCH 30.6 (25.0-34.0) pg MCHC 34.2 (32.0-36.0) g/dL RDW Std Deviation 45.4 (36.4-46.3) fL RDW Coeff of Zoltan 13.8 (11.5-14.5) % Plt Count 155 (130-400) K/uL MPV 10.7 (9.4-12.4) fL Immature Gran % (Auto) 0.4 % Neut % (Auto) 65.1 % Lymph % (Auto) 23.5 % [place]ill % (Auto) 9.0 % Eos % (Auto) 1.6 % Baso % (Auto) 0.4 % Neut # (Auto) 5.04 (1.40-6.50) K/uL Lymph # (Auto) 1.82 (1.20-3.40) K/uL [place] # (Auto) 0.70 H (0.11-0.59) K/uL Eos # (Auto) 0.12 (0.00-0.50) K/uL Baso # (Auto) 0.03 (0.00-0.20) K/uL Immature Gran # (Auto) 0.03 (0.01-0.20) K/uL PT 12.0 (9.0-12.0) Seconds INR 1.1 (0.9-1.1) Sodium 139 (136-145) mmol/L Potassium 3.9 (3.5-5.1) mmol/L Chloride 105 (98-107) mmol/L Carbon Dioxide 27 (21-32) mmol/L Anion Gap 7 (3-11) BUN 16 (6-23) mg/dl Creatinine 1.00 (0.6-1.4) mg/dl Est Cr Clr Drug Dosing 132.6 ml/min eGFR 92.84 BUN/Creatinine Ratio 16.0 (10-20) Glucose 202 H (70-99(Fasting)) mg/dl Calcium 8.2 L (8.6-10.3) mg/dl Total Bilirubin 0.8 (0.2-1.0) mg/dl AST 22 (13-39) U/L ALT 17 (7-52) U/L Alkaline Phosphatase 89 (34-104) U/L Troponin I High Sens 28.6 H (0-20) pg/ml B-Natriuretic Peptide 822 H (0-100) pg/ml Total Protein 6.8 (6.0-8.3) gm/dl Albumin 3.3 L (3.4-5.0) gm/dl Globulin 3.5 (2.5-4.0) gm/dl Albumin/Globulin Ratio 0.9 (0.9-2) Lipase 19 (11-82) U/L SARS-CoV-2 (PCR) NEGATIVE (Negative) Influenza Type A (PCR) Negative (Neg) Influenza Type B (PCR) Negative (Neg) RSV (RT-PCR) Negative (Neg) Administered Medications Albuterol (Albut/Ipratrop 3mg/0.5mg Neb 3 Ml Vial) 3 ml NEB Q2H PRN; Protocol PRN Reason: dyspnea Stop: 02/09/25 22:57 Last Admin: 01/10/25 23:24 Dose: 3 ml Documented By: LAURENT Doxycycline Hyclate 100 mg/ (Dextrose) 100 mls @ 50 mls/hr IV Q12H SUKHWINDER Stop: 01/20/25 22:59 Last Admin: 01/10/25 23:25 Dose: 50 mls/hr Documented By: LAURENT Cefepime HCl (Maxipime 2000mg) 2,000 mg in 20 mls @ 5 mls/min IV Q12H SUKHWINDER; Protocol Stop: 01/17/25 22:59 Last Admin: 01/10/25 23:24 Dose: 5 mls/min Documented By: LAURENT Discontinued Medications Furosemide (Furosemide 40 Mg/4 Ml Vial) 40 mg IV ONE ONE Stop: 01/10/25 22:23 Last Admin: 01/10/25 22:31 Dose: 40 mg Documented By: olivia Nitroglycerin (Nitroglycerin Sl 0.4 Mg/Tab Tab) 0.4 mg SL NOW STA Stop: 01/10/25 21:00 Last Admin: 01/10/25 21:15 Dose: 0.4 mg Documented By: olivia Imaging Data Radiologist's Impression: Chest X-Ray 01/10/25 20:36 Exam(s): XR CXR 1 VIEW EXAM: XR Chest, 1 View CLINICAL HISTORY: Reason for exam: Chest pain, nonspecific. TECHNIQUE: Frontal view of the chest. COMPARISON: 11/30/2024 FINDINGS: Lungs: Prominent central pulmonary vasculature with mild perihilar and bibasilar edema, similar to previous. Pleural space: Unremarkable. No pneumothorax. Heart: Unremarkable. No cardiomegaly. Mediastinum: Unremarkable. Normal mediastinal contour. Bones/joints: Mild osteophytosis of the mid to lower thoracic spine. No acute fracture. Tubes, lines and devices: There is a pacing device in the left with leads extending to the right side of the heart. The cardiac silhouette is mildly enlarged. Upper abdomen: Unremarkable as visualized. No pneumoperitoneum under the diaphragm. IMPRESSION: 1. Prominent central pulmonary vasculature with mild perihilar and bibasilar edema, similar to previous. 2. There is a pacing device in the left with leads extending to the right side of the heart. The cardiac silhouette is mildly enlarged. Electronically signed by: Dayne Burr MD 01/10/25 22:19 PM Discharge Plan Visit Data Chief Complaint: Chest Pain Stated Complaint: Chest Pain, SOB ED Provider: Lexus Santana Discharge Problem: Chest pain, Acute exacerbation of CHF (congestive heart failure), Elevated troponin, Elevated brain natriuretic peptide (BNP) level Patient Disposition: Admitted As Inpatient Condition: Fair Forms Stand Alone Forms: [facility] [employer] Prescriptions Prescriptions: No Action (DME) FreeStyle Karla 3 Plessis Misc See Rx Instructions .Route Qty: 1 1RF Rx Instructions: moniotr blood sugar spironolactone 50 mg tablet 50 mg PO BID Qty: 60 1RF metoprolol succinate 25 mg tablet extended release 24 hr 25 mg PO BID Qty: 60 0RF Rx Instructions: TOTAL DOSE 125 MG--TAKES WITH 100 MG TAB. (DME) Portable Oxygen Misc See Rx Instructions .Route Qty: 1 0RF Rx Instructions: Portable oxygen concentrator atorvastatin 10 mg tablet 10 mg PO DAILY Qty: 90 3RF alcohol swabs [Alcohol Pads] Pads, Medicated 5 pad topical DAILY Qty: 500 3RF insulin lispro [Humalog KwikPen Insulin] 100 unit/mL insulin pen 10 unit subcut TID Qty: 15 5RF (DME) CPAP Supplies Misc See Rx Instructions .Route Qty: 1 0RF Rx Instructions: refitting of nasal mask furosemide 80 mg tablet 80 mg PO BID Qty: 60 0RF (DME) Omnipod 5 G6-G7 Intro Kt(Gen5) Cartridge See Rx Instructions .ROUTE .MEDSUPPLY Qty: 1 0RF Rx Instructions: change pods every 2 days due to insulin usage (DME) Omnipod 5 G6-G7 Pods (Gen 5) Cartridge See Rx Instructions .ROUTE .MEDSUPPLY Qty: 15 11RF Rx Instructions: change pod every 2 days due to insulin usage insulin lispro [Humalog U-100 Insulin] 100 unit/mL solution 80 unit continuous subcutaneous infusion DAILY Qty: 24 5RF Rx Instructions: for use with insulin pump; may use up to 80 units per day (DME) BD SafetyGlide Insulin Syringe 1 mL 31 gauge x 15/64" syringe See Rx Instructions .Route Qty: 100 3RF Rx Instructions: As directed budesonide 0.25 mg/2 mL suspension for nebulization 0.25 mg inhalation DAILY PRN (Reason: Shortness Of Breath) (DME) OneTouch Verio test strips Strip See Rx Instructions miscellaneous .MEDSUPPLY Qty: 100 5RF Rx Instructions: check 3x a day (DME) lancets [OneTouch Delica Plus Lancet] 30 gauge misc See Rx Instructions .ROUTE .MEDSUPPLY Qty: 100 5RF Rx Instructions: use new lancet 3x a day (DME) blood-glucose meter [OneTouch Verio Flex meter] Misc See Rx Instructions .ROUTE .MEDSUPPLY Qty: 1 0RF Rx Instructions: As directed (DME) Oxygen Home Liters Per Minute See Rx Instructions .MEDSUPPLY Qty: 1 0RF Rx Instructions: Oxygen 4 L/min. Patient needs to be tanks with new home concentrator capable of filling tanks. DME adapt budesonide-formoterol [Symbicort] 160-4.5 mcg/actuation HFA aerosol inhaler 2 inh inhalation BID Qty: 3 3RF Rx Instructions: 2 puffs twice per day. Rinse mouth after each use tirzepatide 7.5 mg/0.5 mL pen injector 7.5 mg subcut Q7D 30 Days Qty: 2 3RF Rx Instructions: [place] insulin glargine 100 unit/mL (3 mL) insulin pen 50 unit subcut BID (DME) pen needle, diabetic [Comfort EZ Pen Haskell] 31 gauge x 5/16" needle See Rx Instructions .Route Qty: 500 3RF Rx Instructions: use 5 x daily nystatin 100,000 unit/gram powder 1 applic topical BID PRN (Reason: Skin Irritation) Qty: 60 0RF triamcinolone acetonide 0.025 % cream 1 applic topical TID PRN (Reason: rash) Qty: 454 0RF (DME) Sandboxx G7 Sensor Device See Rx Instructions .ROUTE .MEDSUPPLY Qty: 3 11RF Rx Instructions: change sensor every 10 days isosorbide mononitrate 60 mg tablet extended release 24 hr 60 mg PO DAILY Qty: 90 1RF metoprolol succinate 100 mg tablet extended release 24 hr 100 mg PO BID Qty: 180 1RF Rx Instructions: TOTAL DOSE 125 MG--TAKES WITH 25 MG TAB. dapagliflozin propanediol [Farxiga] 10 mg tablet 10 mg PO DAILY Qty: 90 1RF Entresto 97-103 mg tablet 1 tab PO BID Qty: 180 1RF lidocaine 5 % adhesive patch,medicated 1 patch topical DAILY PRN (Reason: Pain) Qty: 90 1RF mupirocin 2 % ointment 1 applic topical TID Qty: 22 1RF nitroglycerin [Nitrostat] 0.4 mg tablet, sublingual 0.4 mg sublingual UD PRN (Reason: Chest Pain) aspirin [Neisha Low Dose Aspirin] 81 mg tablet,delayed release (DR/EC) 81 mg PO QAM albuterol sulfate 2.5 mg /3 mL (0.083 %) solution for nebulization 2.5 mg inhalation Q6H PRN (Reason: Shortness Of Breath Or Wheezing) Rx Instructions: Use every 6 hours as needed with nebulizer albuterol sulfate 90 mcg/actuation HFA aerosol inhaler 1 inh inhalation QID PRN (Reason: Shortness Of Breath Or Wheezing) magnesium oxide 400 mg (241.3 mg magnesium) tablet 400 mg PO QAM trolamine salicylate [Myoflex] 10 % Cream 1 applic EXT BID PRN (Reason: left sided neck pain) Qty: 35.4 0RF Referrals Referrals: Gosia Martinez MD [Primary Care Provider] -
[2025-01-10] MEDS: NITROGLYCERIN SL 0.4 MG/TAB TAB SL STA (21:15)
[2025-01-10 21:29] LABS: Hematocrit (blood only) 42.1 % (42.0-52.0); Hemoglobin 14.4 g/dL (14.0-18.0); Immature Granulocytes # (auto) 0.03 K/uL (0.01-0.20); Immature Granulocytes % (auto) 0.4 %; Mean Corpuscular Hemoglobin 30.6 pg (25.0-34.0); Mean Corpuscular Volume 89.4 fL (80.0-100.0); Platelet Count 155 K/uL (130-400); RDW Standard Deviation 45.4 fL (36.4-46.3); Red Blood Count 4.71 M/uL (4.70-6.10); White Blood Count 7.74 K/ul (4.8-10.8)
[2025-01-10 21:30] LABS: Alanine Aminotransferase 17.0 U/L (7-52); Albumin Globulin Ratio 0.9 (0.9-2); Albumin Level 3.3 gm/dl (3.4-5.0); Alkaline Phosphatase 89.0 U/L (34-104); Anion Gap 7.0 (3-11); Bilirubin,Total 0.8 mg/dl (0.2-1.0); Blood Urea Nitrogen 16.0 mg/dl (6-23); Calcium 8.2 mg/dl (8.6-10.3); Carbon Dioxide 27.0 mmol/L (21-32); Chloride 105.0 mmol/L (98-107); Creatinine Clr Calc Pharmacy 132.6 ml/min; Globulin 3.5 gm/dl (2.5-4.0); Glucose 202.0 mg/dl (70-99(Fasting)); Lipase 19.0 U/L (11-82); Potassium 3.9 mmol/L (3.5-5.1); Sodium 139.0 mmol/L (136-145); Total Protein 6.8 gm/dl (6.0-8.3)
[2025-01-10 21:41] LABS: INR 1.1 (0.9-1.1); Prothrombin Time 12.0 Seconds (9.0-12.0)
[2025-01-10 21:43] LABS: Influenza A virus by PCR Negative (Neg); Influenza B virus by PCR Negative (Neg); SARS CoV2 RNA(COVID-19) Ceph NEGATIVE (Negative)
--- NOTE | 2025-01-10 22:22 | XRay Report ---
Exam(s): XR CXR 1 VIEW EXAM: XR Chest, 1 View CLINICAL HISTORY: Reason for exam: Chest pain, nonspecific. TECHNIQUE: Frontal view of the chest. COMPARISON: 11/30/2024 FINDINGS: Lungs: Prominent central pulmonary vasculature with mild perihilar and bibasilar edema, similar to previous. Pleural space: Unremarkable. No pneumothorax. Heart: Unremarkable. No cardiomegaly. Mediastinum: Unremarkable. Normal mediastinal contour. Bones/joints: Mild osteophytosis of the mid to lower thoracic spine. No acute fracture. Tubes, lines and devices: There is a pacing device in the left with leads extending to the right side of the heart. The cardiac silhouette is mildly enlarged. Upper abdomen: Unremarkable as visualized. No pneumoperitoneum under the diaphragm. IMPRESSION: 1. Prominent central pulmonary vasculature with mild perihilar and bibasilar edema, similar to previous. 2. There is a pacing device in the left with leads extending to the right side of the heart. The cardiac silhouette is mildly enlarged. Electronically signed by: Dayne Burr MD 01/10/25 22:19 PM
[2025-01-10] MEDS: FUROSEMIDE 40 MG/4 ML VIAL IV ONE (22:31)
[2025-01-10] MEDS: CEFEPIME 2000MG 2,000 MG/20 ML SYR IV SCH (23:24)
[2025-01-10] MEDS: ALBUT/IPRATROP 3MG/0.5MG NEB 3 ML VIAL NEB PRN (23:24)
[2025-01-10] MEDS: DOXYCYCLINE HYCLATE 100 MG in DEXTROSE 5% MINI-B 100 ML IV SCH (23:25)
[2025-01-11] MEDS ORDERED: DEXTROSE 50% 50 ML SYRINGE IV PRN (01:54)
[2025-01-11] MEDS ORDERED: GLUCAGON FOR INJ 1 MG VIAL SQ PRN (01:54)
[2025-01-11] MEDS ORDERED: GLUCOSE 10 TAB/TUBE PO PRN (01:54)
[2025-01-11] MEDS ORDERED: CARBOHYDRATES FOR HYPOGLYCEMIA PO PRN (01:54)
[2025-01-11] MEDS ORDERED: GLUCOSE 40% GEL 15 GM TUBE PO PRN (01:54)
[2025-01-11] MEDS ORDERED: NITROGLYCERIN SL 0.4 MG/TAB TAB SL PRN (01:54)
[2025-01-11] MEDS: LANTUS PER UNIT CHARGE SQ SCH (02:10)
--- NOTE | 2025-01-11 03:20 | History & Physical Report ---
Date of Service January 11, 2025 The patient was seen and evaluated and admitted on January 10, 2025 Assessment & Plan (1) Acute exacerbation of CHF (congestive heart failure): (2) Hemoptysis: (3) Pneumonia: (4) Acute on chronic respiratory failure with hypoxia: Plan The patient is a 49-year-old male with a past medical history including HFrEF, thrombocytopenia, acute on chronic respiratory failure hypoxia, acute kidney failure, hypokalemia, hypomagnesemia, nonsustained ventricular tachycardia, diabetes mellitus, hemoptysis, vitamin D deficiency, diabetic peripheral neuropathy, presence of pacemaker/defibrillator. The patient presents to the emergency department with complaint of substernal chest pain and shortness of breath that began earlier in the day today. He reports that he was out shopping and running errands, and when he returned home he developed this chest pain radiating up into his neck, and shortness of breath, He has a chronic cough productive of white sputum, and noted some dark blood spots when he coughed today. He presently is on antibiotics for dental infection. He typically wears nasal cannula oxygen 4 L at baseline, when at home, and increases to 5 L with activity. He was given sublingual nitroglycerin by EMS, which he reported did not significantly improve his pain. At the time of my examination, he denies any chest pain or shortness of breath at rest. Acute on chronic respiratory failure with hypoxia/CHF exacerbation/pneumonia with hemoptysis- Baseline nasal cannula oxygen 4 L, with increases to 5 L with activity. CHF exacerbation/elevated troponin/hypertension/HFrEF/history nonsustained V. tach/presence of pacer defibrillator- The patient will be admitted to telemetry for serial cardiac enzymes, serial EKG's, cardiac rhythm monitoring and a 2-D echocardiogram with Dopplers. Most recent echocardiogram on 08/23/2024 with ejection fraction 15-20% Initial troponin 20.6 with follow-up pending BNP 822 Given furosemide 40 mg IV in the ED Furosemide 40 mg IV every morning Hold oral furosemide Continue aspirin, isosorbide mononitrate, mag oxide, metoprolol succinate, spironolactone, Entresto at half dose. Follow serial CBC with differential, chemistry profile, magnesium and troponin levels Pneumonia with hemoptysis/dental infection- On unknown oral antibiotic Cefepime 2 g IV every 12 hours Doxycycline 100 mg IV every 12 hours DuoNebs every 2 hours as needed COVID/flu/RSV testing negative Sputum Gram stain culture Diabetes mellitus- Reduce insulin glargine from 50 units subcu twice daily to 25 units subcu twice daily until healing is normalized. Placed on Accu-Cheks with NovoLog SSI Check hemoglobin A1c Obstructive sleep apnea- CPAP at bedtime if needed Admission and Anticipated Discharge Date Admission Date: January 10, 2025 History of Present Illness Primary Care Provider: Gosia Martinez MD The patient is a 49-year-old male with a past medical history including HFrEF, thrombocytopenia, acute on chronic respiratory failure hypoxia, acute kidney failure, hypokalemia, hypomagnesemia, nonsustained ventricular tachycardia, diabetes mellitus, hemoptysis, vitamin D deficiency, diabetic peripheral neuropathy, presence of pacemaker/defibrillator. The patient presents to the emergency department with complaint of substernal chest pain and shortness of breath that began earlier in the day today. He reports that he was out shopping and running errands, and when he returned home he developed this chest pain radiating up into his neck, and shortness of breath, He has a chronic cough productive of white sputum, and noted some dark blood spots when he coughed today. He presently is on antibiotics for dental infection. He typically wears nasal cannula oxygen 4 L at baseline, when at home, and increases to 5 L with activity. He was given sublingual nitroglycerin by EMS, which he reported did not significantly improve his pain. At the time of my examination, he denies any chest pain or shortness of breath at rest. Allergies Allergy/AdvReac Type Severity Reaction Status Date / Time albuterol Allergy Severe proair Verified 12/09/24 13:13 "trouble taking breaths" ceftriaxone Allergy Severe SHORTNESS Verified 12/09/24 13:13 OF BREATH lidocaine Allergy Severe SHORTNESS Verified 12/09/24 13:13 OF BREATH, diaphoretic, hives mushroom Allergy Severe Anaphylaxis Verified 12/09/24 13:13 procaine Allergy Severe SHORTNESS Verified 12/09/24 13:13 OF BREATH, diaphoretic, hives amoxicillin Allergy Intermediate HIVES/FACIAL Verified 12/09/24 13:13 SWELLING clavulanic acid Allergy Intermediate HIVES/FACIAL Verified 12/09/24 13:13 SWELLING lisinopril Allergy Intermediate HIVES Verified 12/09/24 13:13 shellfish derived Allergy Unknown Unknown Verified 12/09/24 13:13 acetaminophen AdvReac Mild NAUSEA Verified 12/09/24 13:13 Fish Containing Products AdvReac Unknown Unknown Verified 12/09/24 13:13 Home Medications Medication Instructions Recorded Confirmed Type nitroglycerin 0.4 mg sublingual 0.4 mg sublingual UD PRN Chest Pain 04/24/19 12/09/24 History tablet (Nitrostat) aspirin 81 mg tablet,delayed 81 mg PO QAM 06/16/21 12/09/24 History release (Neisha Low Dose Aspirin) albuterol sulfate 2.5 mg/3 mL 2.5 mg inhalation Q6H PRN 12/02/21 12/09/24 History (0.083 %) solution for nebulization Shortness Of Breath Or Wheezing budesonide 0.25 mg/2 mL suspension 0.25 mg inhalation DAILY PRN 09/15/22 12/09/24 History for nebulization Shortness Of Breath blood-glucose meter ([employer] #1 ea 10/12/22 12/09/24 Rx Verio Flex Meter) lancets 30 gauge ([employer] Delica #100 ea 10/12/22 12/09/24 Rx Plus Lancet) blood sugar diagnostic ([employer] #100 ea 01/17/23 12/09/24 Rx Verio test strips) albuterol sulfate 90 mcg/actuation 1 inh inhalation QID PRN Shortness 10/12/23 12/09/24 History aerosol inhaler Of Breath Or Wheezing trolamine salicylate 10 % topical 1 applic EXT BID PRN left sided 11/06/23 12/09/24 Rx cream (Myoflex) neck pain #35.4 grams blood-glucose,steel roller,cont #1 ea 01/14/24 12/09/24 Rx (FreeStyle Karla 3 [place]) Farxiga 10 mg tablet 10 mg PO DAILY #90 tabs 04/28/24 12/09/24 Rx (dapagliflozin propanediol) insulin glargine 100 unit/mL (3 50 unit subcut BID 04/28/24 12/09/24 History mL) subcutaneous pen isosorbide mononitrate 60 mg 60 mg PO DAILY #90 tabs 04/28/24 12/09/24 Rx tablet,extended release 24 hr metoprolol succinate 100 mg 100 mg PO BID #180 tabs 04/28/24 12/09/24 Rx tablet,extended release 24 hr sacubitril 97 mg-valsartan 103 mg 1 tab PO BID #180 tabs 04/28/24 12/09/24 Rx tablet (Entresto) spironolactone 50 mg tablet 50 mg PO BID #60 tabs 06/24/24 12/09/24 Rx metoprolol succinate 25 mg 25 mg PO BID #60 tabs 07/15/24 12/09/24 Rx tablet,extended release 24 hr Portable Oxygen #1 ea 08/20/24 12/09/24 Rx magnesium oxide 400 mg (241.3 mg 400 mg PO QAM 08/22/24 12/09/24 History magnesium) tablet atorvastatin 10 mg tablet 10 mg PO DAILY #90 tabs 09/11/24 12/09/24 Rx pen needle, diabetic 31 gauge x #500 ea 09/26/24 12/09/24 Rx 5/16" (Comfort EZ Pen [place]) alcohol swabs (Alcohol Pads) 5 pad topical DAILY #500 ea 09/29/24 12/09/24 Rx insulin lispro 100 unit/mL 10 unit (0.1 mL) subcut TID #15 mL 10/01/24 12/09/24 Rx subcutaneous pen (Humalog KwikPen (U-100) Insulin) nystatin 100,000 unit/gram topical 1 applic topical BID PRN Skin 10/07/24 12/09/24 Rx powder Irritation #60 grams triamcinolone acetonide 0.025 % 1 applic topical TID PRN rash #454 10/07/24 12/09/24 Rx topical cream grams lidocaine 5 % topical patch 1 patch topical DAILY PRN Pain #90 10/20/24 12/09/24 Rx ea mupirocin 2 % topical ointment 1 applic topical TID #22 grams 10/20/24 12/09/24 Rx tirzepatide 7.5 mg/0.5 mL 7.5 mg (0.5 mL) subcut Q7D 30 days 10/20/24 12/09/24 Rx subcutaneous pen injector #2 mL CPAP Supplies #1 ea 11/18/24 12/09/24 Rx blood-glucose sensor (Dexcom G7 #3 ea 11/27/24 12/09/24 Rx Sensor device) furosemide 80 mg tablet 80 mg PO BID #60 tabs 12/04/24 12/09/24 Rx insulin pump cart,auto,BT,G6/7 #15 ea 12/04/24 12/09/24 Rx (Omnipod 5 G6-G7 Pods (Gen 5) subcutaneous cartridge) insulin pump cartridge,auto #1 ea 12/04/24 12/09/24 Rx dose,BT,G6/G7 with controller subcutaneous (Omnipod 5 G6-G7 Intro Kit(Gen 5) subcutaneous cartridge and controller) Oxygen Home #1 ea 12/09/24 12/09/24 Rx Symbicort 160 mcg-4.5 2 inh inhalation BID #3 Inhalers 12/09/24 12/09/24 Rx mcg/actuation HFA aerosol inhaler (budesonide-formoterol) insulin lispro 100 unit/mL 80 unit (0.8 mL) continuous 12/09/24 12/09/24 Rx subcutaneous solution (Humalog subcutaneous infusion DAILY #24 mL U-100 Insulin) insulin syringe,safety needle 1 mL #100 ea 12/11/24 Rx 31 gauge x 15/64" (BD SafetyGlide Insulin Syringe) Past Med/Surg History Problem List (Updated 01/10/25 @ 22:32 by Lexus Santana MD) Elevated brain natriuretic peptide (BNP) level (Acute) Elevated troponin (Acute) Acute exacerbation of CHF (congestive heart failure) (Acute) Chest pain (Acute) Thrombocytopenia (Acute) Hypertensive emergency (Acute) NYHA class 3 acute on chronic systolic heart failure Uncontrolled hypertension Acute on chronic respiratory failure with hypoxia (Acute) Hypomagnesemia (Acute) Elevated troponin (Acute) Chest pain (Acute) Hypokalemia Acute on chronic systolic CHF (congestive heart failure) (Acute) Acute kidney failure Left knee pain Elevated brain natriuretic peptide (BNP) level (Acute) Hypomagnesemia (Acute) Acute exacerbation of CHF (congestive heart failure) (Acute) Venous stasis dermatitis Non-sustained ventricular tachycardia (Acute) Pulmonary edema (Acute) Lightheadedness (Acute) Dyspnea (Acute) Acute on chronic heart failure with reduced ejection fraction (HFrEF, <= 40%) Periapical abscess Pulmonary edema (Acute) Hypomagnesemia (Acute) Diabetic peripheral neuropathy Non-proliferative diabetic retinopathy, both eyes Uncontrolled diabetes mellitus with hyperglycemia Normocytic anemia Poor intravenous access Chronic anticoagulation Diabetes mellitus type II, uncontrolled (Chronic) Urinary bladder incontinence Hx of local infection of skin and subcutaneous tissue Ambulatory dysfunction (Chronic) Recurrent infection of skin Pulmonary nodule V tach (Acute) Hemoptysis (Acute) Vitamin D deficiency Medical History Hypertension Type 2 diabetes mellitus with microalbuminuria HFrEF (heart failure with reduced ejection fraction) Chronic respiratory failure Chronic respiratory failure with hypoxia Type 2 diabetes mellitus with obesity Morbid obesity with BMI of 50.0-59.9, adult Hypertension Non-sustained ventricular tachycardia Obstructive sleep apnea NICM (nonischemic cardiomyopathy) Pt admitted for elective ICD. Underwent procedure without any complications monitored over night and discharged home. Combined systolic and diastolic heart failure Nonischemic cardiomyopathy, unclear etiology. Difficult to manage. Integrated into heart failure clinic. Frequent admissions for heart failure exacerbations. Echo (05/31) EF=25-30% with mod to severe global hypokinesis, basal kelsi-septal akinetic wall, LVH, RVSP elevated at 30-40mmHg, and mod dilated ascending aorta. Managed medically with ASA + BB + ARB/Neprilysin inhibitor (Entresto) + high dose furosemide (160mg BID) + metolazone (3x weekly). Considering ICD given EF. COPD (chronic obstructive pulmonary disease) Hypomagnesemia Medical non-compliance Intellectual disability Chronic dental pain Small bowel obstruction Housing instability, currently housed, at risk for homelessness Hearing loss of both ears Nonproliferative retinopathy due to secondary diabetes Dilatation of thoracic aorta Iliac aneurysm Vitamin D insufficiency Previously deficient, taking Vit D supplementation Umbilical hernia Lung nodule Fatty liver Surgical History AICD (automatic cardioverter/defibrillator) present H/O oral surgery History of carpal tunnel surgery S/P tonsillectomy History of cholecystectomy Family History Father , age 57 of an DC. Heart disease Myocardial infarction Mother , age 67 of a ruptured neck vessel Sudden Other Depression Lung disease No pertinent family history Denies family history of Ovarian cancer Prostate cancer Breast cancer Colorectal cancer Social History Smoking Status: Never smoker Tobacco Type: Declines Age Started Using Tobacco: 14; Age Quit Using Tobacco: 18; packs per day: 1; Second Hand Exposure: No; Do You Dip or Chew Tobacco: No; Hx Alcohol Use: No Hx Substance Use: No Preferred Language: Lithuanian Communication Ability: Effective Visual Impairment: No Limitations Hearing Ability: Normal Cosmetic Counselor Required: No Beliefs That Will Affect Care: None marital status: Current Living Situation: Spouse Current Living Situation Comment: Home with spouse current occupational status: unemployed How many Children do You have: 0 Feels Safe at Home: Yes Childhood Exposure to Second-Hand Smoke: Yes Dental Care, Regularly: Yes Physical Activity Frequency: Does not Exercise Seatbelt Use: never Sunscreen Use: No Assistive Devices: Cane, Oxygen - Continuous, Scooter/Electric Scooter and Walker Review of Systems Review of Systems: the patient denies palpitations, cough, lower extremity swelling, sore throat, fevers, chills, sweats, nausea, vomiting, diarrhea , constipation, abdominal pain, pelvic pain, blood in urine or stool, dysuria, urinary frequency or urgency, lightheadedness, dizziness, headache, memory loss, loss of consciousness, imbalance, focal weakness, numbness or tingling in arms or legs, generalized arthralgias or myalgias, back or neck pain, or night sweats. The review of systems is otherwise negative other than for that already noted above, and at least 10 systems have been reviewed. Physical Exam Physical Exam: The patient is awake, alert and oriented 3, well developed and well nourished, normocephalic and atraumatic, lying in bed and in no acute distress. HEENT--PERRL, EOMI, mucous membranes and oropharynx normal. Missing several teeth Neck--supple. No JVD. No bruits. Thyroid normal, trachea midline, no adenopathy. Heart--normal S1 and S2. No murmurs, rubs or gallops. Lungs--crackles at the bases bilaterally, right worse than left. No respiratory distress, no accessory muscle use. Abdomen--normal bowel sounds and soft. Nontender. Nondistended. Morbidly obese Extremities-- 1+ bilateral pretibial pitting edema. There are good distal pulses b/l. Dermatologic-- eczematous rash bilateral extremities Neurologic--cranial nerves II through XII grossly intact. Rheumatologic--normal range of motion. Psychiatric--normal affect. Results & Data Results & Data Vital Signs (Past 12 Hours) Vital Signs Temp Pulse Pulse Resp BP BP Pulse Ox 01/11/25 00:50 94 H 01/11/25 00:30 80 126/89 96 01/11/25 00:00 149/111 H 97 01/10/25 23:30 89 22 141/98 H 94 01/10/25 23:25 95 H 20 147/92 H 95 01/10/25 23:00 86 129/86 93 01/10/25 22:30 129/86 01/10/25 22:30 129/86 01/10/25 22:00 118/85 01/10/25 22:00 118/85 01/10/25 22:00 118/85 01/10/25 22:00 118/85 01/10/25 22:00 118/85 01/10/25 22:00 88 26 H 92 01/10/25 21:49 132/85 01/10/25 21:49 132/85 01/10/25 21:49 132/85 01/10/25 21:49 132/85 01/10/25 21:49 132/85 01/10/25 21:48 95 H 18 93 01/10/25 21:47 89 22 132/85 97 01/10/25 21:36 94 H 24 84 L 01/10/25 21:06 99 01/10/25 21:00 130/94 01/10/25 21:00 130/94 01/10/25 21:00 130/94 01/10/25 21:00 130/94 01/10/25 21:00 130/94 01/10/25 21:00 97 H 21 97 01/10/25 20:39 97 H 10 L 97 01/10/25 20:37 136/107 H 01/10/25 20:37 136/107 H 01/10/25 20:37 136/107 H 01/10/25 20:37 136/107 H 01/10/25 20:37 136/107 H 01/10/25 20:37 98 H 01/10/25 20:36 93 H 26 H 96 01/10/25 20:36 36.8 C 94 H 21 136/107 H 98 01/10/25 20:36 O2 Del Method O2 Flow Rate 01/11/25 00:50 01/11/25 00:30 Nasal Cannula 4 01/11/25 00:00 Nasal Cannula 4 01/10/25 23:30 Nasal Cannula 4 01/10/25 23:25 Nasal Cannula 4 01/10/25 23:00 01/10/25 22:30 01/10/25 22:30 01/10/25 22:00 01/10/25 22:00 01/10/25 22:00 01/10/25 22:00 01/10/25 22:00 01/10/25 22:00 01/10/25 21:49 01/10/25 21:49 01/10/25 21:49 01/10/25 21:49 01/10/25 21:49 01/10/25 21:48 01/10/25 21:47 Nasal Cannula 6 01/10/25 21:36 01/10/25 21:06 Nasal Cannula 6 01/10/25 21:00 01/10/25 21:00 01/10/25 21:00 01/10/25 21:00 01/10/25 21:00 01/10/25 21:00 01/10/25 20:39 01/10/25 20:37 01/10/25 20:37 01/10/25 20:37 01/10/25 20:37 01/10/25 20:37 01/10/25 20:37 01/10/25 20:36 Nasal Cannula 6 01/10/25 20:36 Nasal Cannula 6 01/10/25 20:36 Nasal Cannula 6 Laboratory Results Laboratory Results WBC 7.74 K/ul (4.8-10.8) 01/10/25 20:40 RBC 4.71 M/uL (4.70-6.10) 01/10/25 20:40 Hgb 14.4 g/dL (14.0-18.0) 01/10/25 20:40 Hct 42.1 % (42.0-52.0) 01/10/25 20:40 MCV 89.4 fL (80.0-100.0) 01/10/25 20:40 MCH 30.6 pg (25.0-34.0) 01/10/25 20:40 MCHC 34.2 g/dL (32.0-36.0) 01/10/25 20:40 RDW Std Deviation 45.4 fL (36.4-46.3) 01/10/25 20:40 RDW Coeff of Zoltan 13.8 % (11.5-14.5) 01/10/25 20:40 Plt Count 155 K/uL (130-400) 01/10/25 20:40 MPV 10.7 fL (9.4-12.4) 01/10/25 20:40 Immature Gran % (Auto) 0.4 % 01/10/25 20:40 Neut % (Auto) 65.1 % 01/10/25 20:40 Lymph % (Auto) 23.5 % 01/10/25 20:40 Blanco % (Auto) 9.0 % 01/10/25 20:40 Eos % (Auto) 1.6 % 01/10/25 20:40 Baso % (Auto) 0.4 % 01/10/25 20:40 Neut # (Auto) 5.04 K/uL (1.40-6.50) 01/10/25 20:40 Lymph # (Auto) 1.82 K/uL (1.20-3.40) 01/10/25 20:40 Blanco # (Auto) 0.70 K/uL (0.11-0.59) H 01/10/25 20:40 Eos # (Auto) 0.12 K/uL (0.00-0.50) 01/10/25 20:40 Baso # (Auto) 0.03 K/uL (0.00-0.20) 01/10/25 20:40 Immature Gran # (Auto) 0.03 K/uL (0.01-0.20) 01/10/25 20:40 PT 12.0 Seconds (9.0-12.0) 01/10/25 20:40 INR 1.1 (0.9-1.1) 01/10/25 20:40 Sodium 139 mmol/L (136-145) 01/10/25 20:40 Potassium 3.9 mmol/L (3.5-5.1) 01/10/25 20:40 Chloride 105 mmol/L (98-107) 01/10/25 20:40 Carbon Dioxide 27 mmol/L (21-32) 01/10/25 20:40 Anion Gap 7 (3-11) 01/10/25 20:40 BUN 16 mg/dl (6-23) 01/10/25 20:40 Creatinine 1.00 mg/dl (0.6-1.4) 01/10/25 20:40 Est Cr Clr Drug Dosing 132.6 ml/min 01/10/25 20:40 eGFR 92.84 01/10/25 20:40 BUN/Creatinine Ratio 16.0 (10-20) 01/10/25 20:40 Glucose 202 mg/dl (70-99(Fasting)) H 01/10/25 20:40 Calcium 8.2 mg/dl (8.6-10.3) L 01/10/25 20:40 Total Bilirubin 0.8 mg/dl (0.2-1.0) 01/10/25 20:40 AST 22 U/L (13-39) 01/10/25 20:40 ALT 17 U/L (7-52) 01/10/25 20:40 Alkaline Phosphatase 89 U/L (34-104) 01/10/25 20:40 Troponin I High Sens 29.7 pg/ml (0-20) H 01/10/25 22:38 B-Natriuretic Peptide 822 pg/ml (0-100) H 01/10/25 20:40 Total Protein 6.8 gm/dl (6.0-8.3) 01/10/25 20:40 Albumin 3.3 gm/dl (3.4-5.0) L 01/10/25 20:40 Globulin 3.5 gm/dl (2.5-4.0) 01/10/25 20:40 Albumin/Globulin Ratio 0.9 (0.9-2) 01/10/25 20:40 Lipase 19 U/L (11-82) 01/10/25 20:40 SARS-CoV-2 (PCR) NEGATIVE (Negative) 01/10/25 20:40 Influenza Type A (PCR) Negative (Neg) 01/10/25 20:40 Influenza Type B (PCR) Negative (Neg) 01/10/25 20:40 RSV (RT-PCR) Negative (Neg) 01/10/25 20:40 Impressions Chest X-Ray 01/10/25 20:36 Exam(s): XR CXR 1 VIEW EXAM: XR Chest, 1 View CLINICAL HISTORY: Reason for exam: Chest pain, nonspecific. TECHNIQUE: Frontal view of the chest. COMPARISON: 11/30/2024 FINDINGS: Lungs: Prominent central pulmonary vasculature with mild perihilar and bibasilar edema, similar to previous. Pleural space: Unremarkable. No pneumothorax. Heart: Unremarkable. No cardiomegaly. Mediastinum: Unremarkable. Normal mediastinal contour. Bones/joints: Mild osteophytosis of the mid to lower thoracic spine. No acute fracture. Tubes, lines and devices: There is a pacing device in the left with leads extending to the right side of the heart. The cardiac silhouette is mildly enlarged. Upper abdomen: Unremarkable as visualized. No pneumoperitoneum under the diaphragm. IMPRESSION: 1. Prominent central pulmonary vasculature with mild perihilar and bibasilar edema, similar to previous. 2. There is a pacing device in the left with leads extending to the right side of the heart. The cardiac silhouette is mildly enlarged. Electronically signed by: Dayne Burr MD 01/10/25 22:19 PM Code Status & VTE Plan Code Status Full code VTE Prophylaxis Plan VTE Prophylaxis will be ordered: Yes PG Care Time/CCT Total # of Minutes Spent Total Time Spent with Patient: Total time spent is greater than 50% in coordination of care (as documented) at patient's floor/unit and/or counseling patient: Coding Level of Care Code 48380 INT INP/OBS CARE 3/75MIN Diagnoses Acute exacerbation of CHF (congestive heart failure) I50.9 Hemoptysis R04.2 Pneumonia J18.9 Acute on chronic respiratory failure with hypoxia J96.21
[2025-01-11 06:26] LABS: Hematocrit (blood only) 41.2 % (42.0-52.0); Hemoglobin 14.2 g/dL (14.0-18.0); Immature Granulocytes # (auto) 0.04 K/uL (0.01-0.20); Immature Granulocytes % (auto) 0.4 %; Mean Corpuscular Hemoglobin 30.5 pg (25.0-34.0); Mean Corpuscular Volume 88.4 fL (80.0-100.0); Platelet Count 158 K/uL (130-400); RDW Standard Deviation 44.0 fL (36.4-46.3); Red Blood Count 4.66 M/uL (4.70-6.10); White Blood Count 9.12 K/ul (4.8-10.8)
[2025-01-11 06:48] LABS: Alanine Aminotransferase 14.0 U/L (7-52); Albumin Globulin Ratio 1.2 (0.9-2); Albumin Level 3.4 gm/dl (3.4-5.0); Alkaline Phosphatase 78.0 U/L (34-104); Anion Gap 8.0 (3-11); Bilirubin,Total 0.8 mg/dl (0.2-1.0); Blood Urea Nitrogen 17.0 mg/dl (6-23); Calcium 8.3 mg/dl (8.6-10.3); Carbon Dioxide 28.0 mmol/L (21-32); Chloride 104.0 mmol/L (98-107); Creatinine Clr Calc Pharmacy 135.5 ml/min; Globulin 2.9 gm/dl (2.5-4.0); Glucose 189.0 mg/dl (70-99(Fasting)); Magnesium 1.6 mg/dl (1.7-2.4); Potassium 3.5 mmol/L (3.5-5.1); Sodium 140.0 mmol/L (136-145); Total Protein 6.3 gm/dl (6.0-8.3)
[2025-01-11 07:48] LABS: Hemoglobin A1C 7.9 % (4.5-5.6)
[2025-01-11] MEDS: ACETAMINOPHEN 325 MG TAB PO PRN (07:48)
[2025-01-11] MEDS: INSULIN ASPART PER UNIT CHARGE SC SCH (08:44)
[2025-01-11] MEDS: FUROSEMIDE 40 MG/4 ML VIAL IV SCH (08:48)
[2025-01-11] MEDS: VALSARTAN/SACUBITRIL 103/97MG TAB PO SCH (08:49)
[2025-01-11] MEDS: ISOSORBIDE MONO EXTENDED REL 60 MG TABCR PO SCH (08:49)
[2025-01-11] MEDS: ASPIRIN 81 MG ECTAB PO SCH (08:49)
[2025-01-11] MEDS: MAGNESIUM OXIDE 400 MG TAB PO SCH (08:51)
[2025-01-11] MEDS: ATORVASTATIN 10 MG TAB PO SCH (08:51)
[2025-01-11] MEDS: METOPROLOL SUCC 50MG EXT REL TAB PO SCH (08:51)
[2025-01-11] MEDS: METOPROLOL SUCC 25MG EXT REL TAB PO SCH (08:51)
[2025-01-11] MEDS: SPIRONOLACTONE 25 MG TAB PO SCH (08:51)
[2025-01-11] MEDS: FLUTICASONE/VILANTEROL 200/25MCG 14 PUFFS/INHALER INH SCH (10:25)
--- NOTE | 2025-01-11 10:31 | XCELERA ---
[id number] [email or web address]\[id number]
[2025-01-11] MEDS: BUDESONIDE/FORMOTEROL FUMARATE 160/4.5 60 PUFFS/INHALER INH SCH (10:41)
[2025-01-11] MEDS: CEFEPIME 2000MG 2,000 MG/20 ML SYR IV SCH (10:41)
--- NOTE | 2025-01-11 12:10 | Electrocardiogram Report ---
Test Reason : Blood Pressure : */* mmHG Vent. Rate : 100 BPM Atrial Rate : 100 BPM P-R Int : 172 ms QRS Dur : 110 ms QT Int : 368 ms P-R-T Axes : 62 -59 90 degrees QTcB Int : 474 ms Normal sinus rhythm Left axis deviation Minimal voltage criteria for LVH, may be normal variant Poor R wave progression, consider anterior MD vs. lead placement vs. LVH Abnormal ECG Confirmed by Bertrand Polanco ([id number]) on 01/11/2025 12:09:49 PM Referred By: REFERRED SELF Confirmed By: Bertrand Polanco
[2025-01-11] MEDS ORDERED: ONDANSETRON 4 MG OD TAB PO PRN (16:10)
--- NOTE | 2025-01-11 17:57 | Hospitalist Progress Note ---
Date of Service January 11, 2025 Assessment & Plan (1) Acute exacerbation of CHF (congestive heart failure): Plan: * Patient presents with elevated proBNP and clinical evidence of congestive heart failure * Continue with diuresis with IV furosemide. Will hold oral furosemide while inpatient for the time being. Follow strict ins and outs * Left ventricular ejection fraction severely reduced at 15 to 20%. This is consistent with previous echocardiogram * Internal cardiac defibrillator and pacer in place on chest x-ray. * Continue to monitor on telemetry (2) Hypomagnesemia: Plan: * Patient with chronic hypomagnesemia with a level in the 1.5-1.6 range. * Will try to avoid magnesium sulfate as patient is fluid overloaded * Continue with magnesium oxide p.o. (3) Acute on chronic respiratory failure with hypoxia: Plan: * Patient reports he is back to baseline since receiving IV diuretics. Currently on 4 L/min of supplemental oxygen which is his current home rate as well. (4) Diabetes mellitus type II, uncontrolled: Plan: * Insulin glargine reduced from 50 units SQ twice daily to 25 units SQ twice daily until healing is normalized * Continue sliding scale insulin * Random glucose 189 mg/dL (5) Hemoptysis: Plan: * Patient reports that he was on unknown oral antibiotic for dental infection * Patient states that hemoptysis has resolved since starting IV antibiotics. * Continue cefepime 2 g IV every 12 hours and doxycycline 100 mg IV every 12 hours * Hemoglobin 14.2 g/dL * WBC normalized at 9.12. * Sputum culture pending Plan Plan discussed with Dr. Pascal Anticipate the patient will be overnight for 2 to 3 days to continue with IV diuresis. Anticipate discharge home when stable Continue to monitor on telemetry Admission and Anticipated Discharge Date Admission Date: January 10, 2025 Supervising Physician Co-Signing Physician Notes The patient was not seen by me. The chart was reviewed. Case discussed with LELAND Ballesteros. Agree with assessment and plan Subjective Attending: Dr. Pascal Patient is a 49-year-old male who was admitted yesterday with acute exacerbation of CHF, hemoptysis, and pneumonia, acute on chronic respiratory failure with hypoxia. Patient seen at bedside today. He reports hemoptysis is resolved. Patient reports that he is afebrile and all of his sputum has been clear. Patient states that this is customary for him when he has fluid overload. Patient denies any chest pain at this time. Chief complaint is lower extremity edema. This is symmetrical. Patient does have some open areas developing with positive drainage. Patient is pleasant. He denies any shortness of breath and denies any further cough. He states he typically wears supplemental oxygen 4 L/min and increases to 5 L/min with exertion. He has no acute complaints at this time. Review of Systems 2 Review of Systems: A total of 10 systems was reviewed and is negative other than as listed in the HPI Physical Exam 2 Physical Exam: GENERAL : No acute distress EYES: No icterus, gaze conjugate NOSE: No evidence of epistaxis MOUTH: No lesions or candidiasis NECK: Supple LUNGS: Coarse crackles at bilateral bases. No bronchospasm or rhonchi appreciated HEART: Regular, rate controlled ABDOMEN: Soft, NT, ND, BS Present EXTREMITIES: Bilateral LE edema, pedal pulses intact and equal bilaterally, chronic venous stasis noted. Patient does have some open areas on the back of his calves which are draining. No evidence of cellulitis NEURO: A&OX3 Results & Data Results & Data Vital Signs (Past 12 Hours) Vital Signs Temp Pulse Pulse Resp BP Pulse Ox O2 Del Method 01/11/25 15:28 36.3 C L 71 20 114/71 97 Room Air 01/11/25 13:00 63 01/11/25 11:19 36.4 C L 76 17 127/82 96 Nasal Cannula 01/11/25 09:51 Nasal Cannula 01/11/25 07:37 36.7 C 77 20 123/81 96 Nasal Cannula 01/11/25 05:50 78 O2 Flow Rate 01/11/25 15:28 01/11/25 13:00 01/11/25 11:19 5 01/11/25 09:51 5 01/11/25 07:37 5 01/11/25 05:50 Laboratory Results 01/11/25 05:49 01/11/25 05:49 Laboratory Tests 01/10/25 20:40 B-Natriuretic Peptide 822 H Laboratory Tests 01/11/25 05:49 Magnesium 1.6 L Diagnostic Findings Chest X-Ray 01/10/25 20:36 Exam(s): XR CXR 1 VIEW EXAM: XR Chest, 1 View CLINICAL HISTORY: Reason for exam: Chest pain, nonspecific. TECHNIQUE: Frontal view of the chest. COMPARISON: 11/30/2024 FINDINGS: Lungs: Prominent central pulmonary vasculature with mild perihilar and bibasilar edema, similar to previous. Pleural space: Unremarkable. No pneumothorax. Heart: Unremarkable. No cardiomegaly. Mediastinum: Unremarkable. Normal mediastinal contour. Bones/joints: Mild osteophytosis of the mid to lower thoracic spine. No acute fracture. Tubes, lines and devices: There is a pacing device in the left with leads extending to the right side of the heart. The cardiac silhouette is mildly enlarged. Upper abdomen: Unremarkable as visualized. No pneumoperitoneum under the diaphragm. IMPRESSION: 1. Prominent central pulmonary vasculature with mild perihilar and bibasilar edema, similar to previous. 2. There is a pacing device in the left with leads extending to the right side of the heart. The cardiac silhouette is mildly enlarged. Electronically signed by: Dayne Burr MD 01/10/25 22:19 PM PG Care Time/CCT Total # of Minutes Spent Total Time Spent with Patient: Total time spent is greater than 50% in coordination of care (as documented) at patient's floor/unit and/or counseling patient: Coding Level of Care Code 10542 SUB INP/OBS CARE 2/35MIN Diagnoses Acute on chronic congestive heart failure, unspecified heart failure type I50.9 Heart failure type: unspecified Hypomagnesemia E83.42 Acute on chronic respiratory failure with hypoxia J96.21 Uncontrolled type 2 diabetes mellitus with hyperglycemia E11.65 Glycemic state: with hyperglycemia Hemoptysis R04.2 Time Spent (min) 40 (1) Acute exacerbation of CHF (congestive heart failure) Heart failure type: unspecified Qualified Code(s): I50.9 - Heart failure, unspecified (4) Diabetes mellitus type II, uncontrolled Glycemic state: with hyperglycemia Qualified Code(s): E11.65 - Type 2 diabetes mellitus with hyperglycemia
[2025-01-11] MEDS: SODIUM CHLORIDE 0.9% 500 ML IV SCH ×2 (18:25→23:16)
[2025-01-11] MEDS: IBUPROFEN 200 MG TAB PO PRN (18:44)
[2025-01-12 06:14] LABS: Hematocrit (blood only) 41.0 % (42.0-52.0); Hemoglobin 13.5 g/dL (14.0-18.0); Immature Granulocytes # (auto) 0.03 K/uL (0.01-0.20); Immature Granulocytes % (auto) 0.4 %; Mean Corpuscular Hemoglobin 29.5 pg (25.0-34.0); Mean Corpuscular Volume 89.5 fL (80.0-100.0); Platelet Count 152 K/uL (130-400); RDW Standard Deviation 44.9 fL (36.4-46.3); Red Blood Count 4.58 M/uL (4.70-6.10); White Blood Count 7.40 K/ul (4.8-10.8)
[2025-01-12 06:38] LABS: Alanine Aminotransferase 11.0 U/L (7-52); Albumin Globulin Ratio 1.2 (0.9-2); Albumin Level 3.3 gm/dl (3.4-5.0); Alkaline Phosphatase 71.0 U/L (34-104); Anion Gap 8.0 (3-11); Bilirubin,Total 0.8 mg/dl (0.2-1.0); Blood Urea Nitrogen 20.0 mg/dl (6-23); Calcium 8.2 mg/dl (8.6-10.3); Carbon Dioxide 28.0 mmol/L (21-32); Chloride 103.0 mmol/L (98-107); Creatinine Clr Calc Pharmacy 126.0 ml/min; Globulin 2.8 gm/dl (2.5-4.0); Glucose 121.0 mg/dl (70-99(Fasting)); Magnesium 1.6 mg/dl (1.7-2.4); Potassium 3.3 mmol/L (3.5-5.1); Sodium 139.0 mmol/L (136-145); Total Protein 6.1 gm/dl (6.0-8.3)
[2025-01-12] MEDS: POTASSIUM CHLORIDE CRTAB 20 MEQ TABCR PO STA (11:08)
[2025-01-12] MEDS: MAGNESIUM SULFATE / D5W 1 GM/100 ML BAG IV SCH (11:09)
--- NOTE | 2025-01-12 16:21 | Hospitalist Progress Note ---
Date of Service January 12, 2025 Assessment & Plan (1) Acute exacerbation of CHF (congestive heart failure): Plan: Patient presents with elevated proBNP and clinical evidence of congestive heart failure - reports compliance with his medications at home. ICD in place. Increase lasix to 40mg IV BID (takes 80mg PO BID) - may need to switch to bumex, will attempt to review [facility] records to see if has been on this before. Suspect there is a component of dietary indiscretion - will initiate 2L FR Daily weights - Follow strict ins and outs. Reports dry weight ~ 318lbs Left ventricular ejection fraction severely reduced at 15 to 20%. This is consistent with previous echocardiogram Continue Imdur, metopolol, entresto and spirnolactone Gage wraps to b/l legs instead of sania hose AM BMP and Mag (2) Hypomagnesemia: Plan: Continue PO mag Despite this Mag low today - replace IV Check AM Also hypokalemic at 3.3, replaced PO (3) Acute on chronic respiratory failure with hypoxia: Plan: Patient reports he is back to baseline since receiving IV diuretics. Currently on 4 L/min of supplemental oxygen which is his current home rate as well. (4) Diabetes mellitus type II, uncontrolled: Plan: A1c 7.9 12/2024 Home regimen: insulin pump - this was unknowingly continued on admission but feel off during shower on 01/12 will continue SSI and lantus 25u BID while here - may need to increase now that pump has turned off Has pump supplies but not CGM monitor - pt main concern is the finger sticks, asked for family to bring in CGM (5) Hemoptysis: Plan: Patient reports that he was on unknown oral antibiotic for dental infection (no recent fill hx in our system), Patient states that hemoptysis has resolved since starting IV antibiotics. Continue cefepime 2 g IV every 12 hours and doxycycline 100 mg IV every 12 hours Hemoglobin stable SC with light normal uriel Will have to clarfiy with patient duration of OP abx to determine course Plan Dispo: continued inpatient stay for IV diuresis DVT proh: lovenox Admission and Anticipated Discharge Date Admission Date: January 10, 2025 Supervising Physician Co-Signing Physician Notes PA Supervision Note: I did not personally see or examine the patient today, but I verified all caraballo points of LELAND Ann's assessment and plan with the following exceptions/additions: None Subjective patient seen lying in bed - niece/caregiver present at bedside reports that he is having some pain and weeping from his legs he does feel short of breath when moving around - a little worse than normal denies issues affording his medications at home. reports that he eat very little at home and often gets sick after he eats tele - SR 60s Review of Systems Review of Systems: All systems reviewed & are unremarkable except as noted in Subjective Physical Exam Physical Exam: General: NAD, VS as above Resp: normal respiratory effort, lungs diminished in the bases, on 5L NC CV: RRR, no murmur, Abd: normal bowel sounds, non tender, soft Extremities: Moves all extremities, + trace pitting LE edema, mild erythema and varicose veins Neuro: A&O x3, Results & Data Results & Data Vital Signs (Past 12 Hours) Vital Signs Temp Pulse Pulse Resp BP Pulse Ox O2 Del Method 01/12/25 14:05 74 01/12/25 11:55 96.4 F L 84 24 120/74 91 Nasal Cannula 01/12/25 11:00 Nasal Cannula 01/12/25 08:12 97.2 F L 64 24 113/72 97 Nasal Cannula 01/12/25 05:30 67 O2 Flow Rate 01/12/25 14:05 01/12/25 11:55 5 01/12/25 11:00 5 01/12/25 08:12 5 01/12/25 05:30 Laboratory Results cbc and chemistry reviewed PG Care Time/CCT Total # of Minutes Spent Total Time Spent with Patient: Total time spent is greater than 50% in coordination of care (as documented) at patient's floor/unit and/or counseling patient: Coding Level of Care Code 97003 SUB INP/OBS CARE 3/50MIN Diagnoses Acute on chronic congestive heart failure, unspecified heart failure type I50.9 Heart failure type: unspecified Hypomagnesemia E83.42 Acute on chronic respiratory failure with hypoxia J96.21 Uncontrolled type 2 diabetes mellitus with hyperglycemia E11.65 Glycemic state: with hyperglycemia Hemoptysis R04.2 (1) Acute exacerbation of CHF (congestive heart failure) Heart failure type: unspecified Qualified Code(s): I50.9 - Heart failure, unspecified (4) Diabetes mellitus type II, uncontrolled Glycemic state: with hyperglycemia Qualified Code(s): E11.65 - Type 2 diabetes mellitus with hyperglycemia
[2025-01-12] MEDS: FUROSEMIDE 40 MG/4 ML VIAL IV SCH (17:51)
[2025-01-12] MEDS: ENOXAPARIN INJ 40 MG/0.4 ML SYR SQ SCH (21:27)
[2025-01-13 06:18] LABS: Hematocrit (blood only) 41.2 % (42.0-52.0); Hemoglobin 13.9 g/dL (14.0-18.0); Immature Granulocytes # (auto) 0.04 K/uL (0.01-0.20); Immature Granulocytes % (auto) 0.5 %; Mean Corpuscular Hemoglobin 30.4 pg (25.0-34.0); Mean Corpuscular Volume 90.2 fL (80.0-100.0); Platelet Count 157 K/uL (130-400); RDW Standard Deviation 45.6 fL (36.4-46.3); Red Blood Count 4.57 M/uL (4.70-6.10); White Blood Count 7.90 K/ul (4.8-10.8)
[2025-01-13 06:50] LABS: Anion Gap 6.0 (3-11); Blood Urea Nitrogen 21.0 mg/dl (6-23); Calcium 8.2 mg/dl (8.6-10.3); Carbon Dioxide 31.0 mmol/L (21-32); Chloride 103.0 mmol/L (98-107); Creatinine Clr Calc Pharmacy 122.5 ml/min; Glucose 147.0 mg/dl (70-99(Fasting)); Magnesium 1.9 mg/dl (1.7-2.4); Potassium 3.7 mmol/L (3.5-5.1); Sodium 140.0 mmol/L (136-145)
[2025-01-13] MEDS ORDERED: ENOXAPARIN INJ 40 MG/0.4 ML SYR SQ SCH (09:00)
[2025-01-13] MEDS: FUROSEMIDE 40 MG/4 ML VIAL IV ONE (10:05)
--- NOTE | 2025-01-13 15:10 | Hospitalist Progress Note ---
Date of Service January 13, 2025 Assessment & Plan (1) Acute exacerbation of CHF (congestive heart failure): Plan: Patient presents with elevated proBNP and clinical evidence of congestive heart failure - reports compliance with his medications at home. ICD in place. Increase lasix to 80mg IV BID (takes 80mg PO BID) - after weight stable on 40 mg IV twice daily Suspect there is a component of dietary indiscretion - Continue 2L FR Daily weights - Follow strict ins and outs. Reports dry weight ~ 318lbs Left ventricular ejection fraction severely reduced at 15 to 20%. This is consistent with previous echocardiogram Continue Imdur, metopolol, entresto and spironolactone Gage wraps to b/l legs instead of sania hose AM BMP (2) Hypomagnesemia: Plan: Continue PO mag. mag replaced IV and now replete. Previously hypokalemic at 3.3, replaced PO did not replete (3) Acute on chronic respiratory failure with hypoxia: Plan: Patient reports he is back to baseline since receiving IV diuretics. Currently on 5 L/min of supplemental oxygen but also taking off throughout the day (4) Diabetes mellitus type II, uncontrolled: Plan: A1c 7.9 12/2024 Home regimen: insulin pump - this was unknowingly continued on admission but feel off during shower on 01/12 will continue SSI and lantus 25u BID while here - may need to increase now that pump has turned off but so far okay Has pump supplies but not CGM monitor - pt main concern is the finger sticks, a sked for family to bring in CGM (5) Hemoptysis: Plan: Patient reports that he was on unknown oral antibiotic for dental infection (no recent fill hx in our system), Patient states that hemoptysis has resolved since starting IV antibiotics. reports that he was on outpatient antibiotics for over a month. Will discontinue cefepime and Doxy as hemoglobin has remained stable and SC with light normal uriel Plan #MARIELENA - resume CPAP Dispo: continued inpatient stay for IV diuresis, possible discharge tomorrow DVT proph: lovenox Admission and Anticipated Discharge Date Admission Date: January 10, 2025 Supervising Physician Co-Signing Physician Notes PA Supervision Note: I did not personally see or examine the patient today, but I verified all caraballo points of LELAND Ann's assessment and plan with the following exceptions/additions: None Subjective Patient seen sitting up in the chair - seems to lack insight on his disease process, was asking the kitchen help handyman for more liquids beyond his fluid restrictions and then when I walked in the room he said that he doesnt need any extra fluid. There are multiple bottles of pop in room and caregiver is bringing in take out food - but patient states none of it is for him he feels like his shortness of breath is improving - had his oxygen outside of his nose for most of my visit tele - SR 40-70s Review of Systems Review of Systems: All systems reviewed & are unremarkable except as noted in Subjective Physical Exam Physical Exam: General: NAD, VS as above Resp: normal respiratory effort, lungs diminished in the bases, on 5L NC CV: RRR, no murmur, Abd: normal bowel sounds, non tender, soft Extremities: Moves all extremities, + trace pitting LE edema, purple color consistent with venous stasis Neuro: A&O x3, Results & Data Results & Data Vital Signs (Past 12 Hours) Vital Signs Temp Pulse Resp BP Pulse Ox O2 Del Method O2 Flow Rate 01/13/25 11:47 97.7 F 76 19 118/74 89 L Room Air 01/13/25 08:11 Nasal Cannula 5 01/13/25 07:35 97.5 F L 66 19 103/72 97 Nasal Cannula 5 Laboratory Results CBC, chemistry, mag reviewed PG Care Time/CCT Total # of Minutes Spent Total Time Spent with Patient: Total time spent is greater than 50% in coordination of care (as documented) at patient's floor/unit and/or counseling patient: Coding Level of Care Code 68361 SUB INP/OBS CARE 3/50MIN Diagnoses Acute on chronic congestive heart failure, unspecified heart failure type I50.9 Heart failure type: unspecified Hypomagnesemia E83.42 Acute on chronic respiratory failure with hypoxia J96.21 Uncontrolled type 2 diabetes mellitus with hyperglycemia E11.65 Glycemic state: with hyperglycemia Hemoptysis R04.2 (1) Acute exacerbation of CHF (congestive heart failure) Heart failure type: unspecified Qualified Code(s): I50.9 - Heart failure, unspecified (4) Diabetes mellitus type II, uncontrolled Glycemic state: with hyperglycemia Qualified Code(s): E11.65 - Type 2 diabetes mellitus with hyperglycemia
[2025-01-13] MEDS: FUROSEMIDE 40 MG/4 ML VIAL IV SCH (18:07)
[2025-01-14 03:11] VITALS: RESP 21
[2025-01-14 06:31] LABS: Anion Gap 7 (3-11); Blood Urea Nitrogen 26 mg/dl (6-23); Calcium 9.2 mg/dl (8.6-10.3); Carbon Dioxide 32 mmol/L (21-32); Chloride 100 mmol/L (98-107); Creatinine Clr Calc Pharmacy 120.6 ml/min; Glucose 133 mg/dl (70-99(Fasting)); Sodium 139 mmol/L (136-145)
[2025-01-14 07:38] VITALS: PULSE 66; O2SAT 92
[2025-01-14 07:50] VITALS: TEMP 97.5
[2025-01-14 13:31] VITALS: BP 133/85
--- NOTE | 2025-01-14 13:33 | Discharge Summary ---
Discharge Summary Date of Service January 14, 2025 Principal Dx & Hospital Course #1 = Principal Diagnosis (1) Acute exacerbation of CHF (congestive heart failure): (2) Hypomagnesemia: (3) Acute on chronic respiratory failure with hypoxia: (4) Diabetes mellitus type II, uncontrolled: (5) Hemoptysis: Plan #Acute HFrEF| demand ischemia - Patient presents with elevated proBNP and clinical evidence of congestive heart failure - reports compliance with his medications at home. ICD in place. Mild troponin elevation likely secondary to demand.Left ventricular ejection fraction severely reduced at 15 to 20%. This is consistent with previous echocardiogram. Diuresed well with IV lasix 80mg BID, weight decreasing BUN rising. Home regimen was lasix 80mg PO BID but will switch to bumex 2mg BID for better gut absorption. Follow up with [facility] cardiology, reports dry weight is 318 but has not been near that in our system in a long time. Suspect there is a component of dietary indiscretion - Continue 2L FR upon discharge, education provided. Continue Imdur, metoprolol, Entresto, Farxiga, and spironolactone. #hypomagnesemia | hypokalemia - repleted and resolved #Acute on chronic respiratory failure with hypoxia - Patient reports he is back to baseline since receiving IV diuretics. Currently on 5 L/min of supplemental oxygen but also taking off throughout the day #DMT2 continue home insulin pump and CGM on discharge, continue tirzepatide #Hemoptysis - Patient reports that he was on unknown oral antibiotic for dental infection (no recent fill hx in our system), Patient states that hemoptysis has resolved since starting IV antibiotics. reports that he was on outpatient an tibiotics for over a month. Will discontinue cefepime and Doxy as hemoglobin has remained stable and SC with light normal uriel #MARIELENA - CPAP #Morbid obesity with BMI 49.2 weight loss recommended Dispo:discharge to home today, caregiver updated at bedside Notes For Next Care Provider Medication Changes From Visit lasix changed to bumex 2mg BID Admission HPI Per Admitting Provider The patient is a 49-year-old male with a past medical history including HFrEF, thrombocytopenia, acute on chronic respiratory failure hypoxia, acute kidney failure, hypokalemia, hypomagnesemia, nonsustained ventricular tachycardia, diabetes mellitus, hemoptysis, vitamin D deficiency, diabetic peripheral neuropathy, presence of pacemaker/defibrillator. The patient presents to the emergency department with complaint of substernal chest pain and shortness of breath that began earlier in the day today. He reports that he was out shopping and running errands, and when he returned home he developed this chest pain radiating up into his neck, and shortness of breath, He has a chronic cough productive of white sputum, and noted some dark blood spots when he coughed today. He presently is on antibiotics for dental infection. He typically wears nasal cannula oxygen 4 L at baseline, when at home, and increases to 5 L with activity. He was given sublingual nitroglycerin by EMS, which he reported did not significantly improve his pain. At the time of my examination, he denies any chest pain or shortness of breath at rest. Discharge Exam General: NAD, VS as above Resp: normal respiratory effort, lungs diminished in the bases, on 5L NC CV: RRR, no murmur, Abd: normal bowel sounds, non tender, soft Extremities: Moves all extremities, + trace pitting LE edema, purple color consistent with venous stasis Neuro: A&O x3, Discharge Plan Discharge Items Patient Disposition: Home - Self-Care Reason For Visit: CHF EX, DENTAL INFECTION, HEMOPTYSIS, PNEUMONIA Discharge Diagnosis: CHF exacerbation Condition on Discharge: Fair Activity: Resume your previous activity Weightbearing: Full weightbearing Non-emergency contact: Primary Care Provider Call non-emergency contact if: you have any medication questions, your symptoms worsen, your pain is not controlled and your temperature is above 101 Follow-up/Referrals: Gosia Martinez MD [Primary Care Provider] - 01/23/25 10:30 am Maryann Puente CRNP [Outside Practitioners] - (follow up within one week ) Diet: Carb Consistent or DM2 and Heart Healthy Fluids: 2000ml (8 cups) Addtl Attending Provider Instructions: Mr. Huff, You were hospitalized after having worsening shortness of breath at home. This was found to be from a heart failure exacerbation - I suspect that this was due to dietary indiscretion at home. We will be changing your lasix to bumex 2mg twi ce a day to help with your heart failure. It is very important that you limit your salt to 2g a day and fluid in take to 2L per day. You will need to follow up with your rock mason apprentice song. Recommend elevating your legs and continuing compression stockings or linus wraps to help. You completed antibiotics for your dental infection. Please replace your insulin pump and dexcom when you get home. Activity: You can do normal everyday activities as your body allows. Take rest breaks if you feel tired. Do not overexert. Stop activity if you have pain, shortness of breath or feel dizzy. Follow-up appointments: Make an appointment with your primary care physician within one week of discharge. A copy of this summary will be sent to them. Every time you see your primary care physician, or any other doctor, bring your medication list, and a list of questions. CONTACT YOUR PRIMARY CARE PROVIDER if you experience any of the following: Shortness of breath or difficulty breathing Fevers or chills Feeling tired with normal activity or experiencing dizziness or fainting Difficulty following your treatment plan, or difficulty taking medications CALL 911 OR GO TO THE EMERGENCY DEPARTMENT if you experience any of the following: Severe abdominal pain or nausea/vomiting Severe chest pain, or chest pain that radiates (moves) to your jaw or arm Sudden, severe shortness of breath or difficulty breathing Thank you for allowing us to participate in your care. Pending Studies at Discharge: No Stand-Alone Forms: My [facility] [address], Smoking Cessation Medications and DC Order Prescriptions: New bumetanide 2 mg tablet 2 mg PO BID Qty: 30 0RF Continued (DME) FreeStyle Karla 3 [place] Misc See Rx Instructions .Route Qty: 1 1RF Rx Instructions: moniotr blood sugar spironolactone 50 mg tablet 50 mg PO BID Qty: 60 1RF metoprolol succinate 25 mg tablet extended release 24 hr 25 mg PO BID Qty: 60 0RF Rx Instructions: TOTAL DOSE 125 MG--TAKES WITH 100 MG TAB. (DME) Portable Oxygen Misc See Rx Instructions .Route Qty: 1 0RF Rx Instructions: Portable oxygen concentrator atorvastatin 10 mg tablet 10 mg PO DAILY Qty: 90 3RF alcohol swabs [Alcohol Pads] Pads, Medicated 5 pad topical DAILY Qty: 500 3RF insulin lispro [Humalog KwikPen Insulin] 100 unit/mL insulin pen 10 unit subcut TID Qty: 15 5RF (DME) CPAP Supplies Misc See Rx Instructions .Route Qty: 1 0RF Rx Instructions: refitting of nasal mask (DME) Omnipod 5 G6-G7 Intro Kt(Gen5) Cartridge See Rx Instructions .ROUTE .MEDSUPPLY Qty: 1 0RF Rx Instructions: change pods every 2 days due to insulin usage (DME) Omnipod 5 G6-G7 Pods (Gen 5) Cartridge See Rx Instructions .ROUTE .MEDSUPPLY Qty: 15 11RF Rx Instructions: change pod every 2 days due to insulin usage insulin lispro [Humalog U-100 Insulin] 100 unit/mL solution 80 unit continuous subcutaneous infusion DAILY Qty: 24 5RF Rx Instructions: for use with insulin pump; may use up to 80 units per day (DME) BD SafetyGlide Insulin Syringe 1 mL 31 gauge x 15/64" syringe See Rx Instructions .Route Qty: 100 3RF Rx Instructions: As directed budesonide 0.25 mg/2 mL suspension for nebulization 0.25 mg inhalation DAILY PRN (Reason: Shortness Of Breath) (DME) OneTouch Verio test strips Strip See Rx Instructions miscellaneous .MEDSUPPLY Qty: 100 5RF Rx Instructions: check 3x a day (DME) lancets [OneTouch Delica Plus Lancet] 30 gauge misc See Rx Instructions .ROUTE .MEDSUPPLY Qty: 100 5RF Rx Instructions: use new lancet 3x a day (DME) blood-glucose meter [OneTouch Verio Flex meter] Misc See Rx Instructions .ROUTE .MEDSUPPLY Qty: 1 0RF Rx Instructions: As directed (DME) Oxygen Home Liters Per Minute See Rx Instructions .MEDSUPPLY Qty: 1 0RF Rx Instructions: Oxygen 4 L/min. Patient needs to be tanks with new home concentrator capable of filling tanks. DME adapt budesonide-formoterol [Symbicort] 160-4.5 mcg/actuation HFA aerosol inhaler 2 inh inhalation BID Qty: 3 3RF Rx Instructions: 2 puffs twice per day. Rinse mouth after each use tirzepatide 7.5 mg/0.5 mL pen injector 7.5 mg subcut Q7D 30 Days Qty: 2 3RF Rx Instructions: [place] insulin glargine 100 unit/mL (3 mL) insulin pen 50 unit subcut BID (DME) pen needle, diabetic [Comfort EZ Pen Mccrory] 31 gauge x 5/16" needle See Rx Instructions .Route Qty: 500 3RF Rx Instructions: use 5 x daily nystatin 100,000 unit/gram powder 1 applic topical BID PRN (Reason: Skin Irritation) Qty: 60 0RF triamcinolone acetonide 0.025 % cream 1 applic topical TID PRN (Reason: rash) Qty: 454 0RF (DME) Dexcom G7 Sensor Device See Rx Instructions .ROUTE .MEDSUPPLY Qty: 3 11RF Rx Instructions: change sensor every 10 days isosorbide mononitrate 60 mg tablet extended release 24 hr 60 mg PO DAILY Qty: 90 1RF metoprolol succinate 100 mg tablet extended release 24 hr 100 mg PO BID Qty: 180 1RF Rx Instructions: TOTAL DOSE 125 MG--TAKES WITH 25 MG TAB. dapagliflozin propanediol [Farxiga] 10 mg tablet 10 mg PO DAILY Qty: 90 1RF Entresto 97-103 mg tablet 1 tab PO BID Qty: 180 1RF lidocaine 5 % adhesive patch,medicated 1 patch topical DAILY PRN (Reason: Pain) Qty: 90 1RF mupirocin 2 % ointment 1 applic topical TID Qty: 22 1RF nitroglycerin [Nitrostat] 0.4 mg tablet, sublingual 0.4 mg sublingual UD PRN (Reason: Chest Pain) aspirin [Neisha Low Dose Aspirin] 81 mg tablet,delayed release (DR/EC) 81 mg PO QAM albuterol sulfate 2.5 mg /3 mL (0.083 %) solution for nebulization 2.5 mg inhalation Q6H PRN (Reason: Shortness Of Breath Or Wheezing) Rx Instructions: Use every 6 hours as needed with nebulizer albuterol sulfate 90 mcg/actuation HFA aerosol inhaler 1 inh inhalation QID PRN (Reason: Shortness Of Breath Or Wheezing) magnesium oxide 400 mg (241.3 mg magnesium) tablet 400 mg PO QAM trolamine salicylate [Myoflex] 10 % Cream 1 applic EXT BID PRN (Reason: left sided neck pain) Qty: 35.4 0RF Discontinued furosemide 80 mg tablet 80 mg PO BID Qty: 60 0RF Discharge Orders: Discharge Order (Routine); Ordered 01/14/25 Ordered By: Amarilis Talamantes/Other Patient Handouts: Managing Type 2 Diabetes, Heart Failure Make Changes Diet, Heart Failure Dc, Limiting Fluids Dc Admission Data Admit Date/Time: 01/10/25 23:13 Attending Provider: Tonja Cadet Admit Provider: Noé Jaquez Primary Care Provider: Gosia Martinez Other Providers: Noé Jaquez Other Interventions: Discharge Summary Assessment (RN) Last Done: 01/14/25 13:29 Hospital Stay Data Consultations 01/10/25 22:32 ED Decision to Admit Stat Diagnostic Imagining Performed Chest X-Ray 01/10/25 20:36 Exam(s): XR CXR 1 VIEW EXAM: XR Chest, 1 View CLINICAL HISTORY: Reason for exam: Chest pain, nonspecific. TECHNIQUE: Frontal view of the chest. COMPARISON: 11/30/2024 FINDINGS: Lungs: Prominent central pulmonary vasculature with mild perihilar and bibasilar edema, similar to previous. Pleural space: Unremarkable. No pneumothorax. Heart: Unremarkable. No cardiomegaly. Mediastinum: Unremarkable. Normal mediastinal contour. Bones/joints: Mild osteophytosis of the mid to lower thoracic spine. No acute fracture. Tubes, lines and devices: There is a pacing device in the left with leads extending to the right side of the heart. The cardiac silhouette is mildly enlarged. Upper abdomen: Unremarkable as visualized. No pneumoperitoneum under the diaphragm. IMPRESSION: 1. Prominent central pulmonary vasculature with mild perihilar and bibasilar edema, similar to previous. 2. There is a pacing device in the left with leads extending to the right side of the heart. The cardiac silhouette is mildly enlarged. Electronically signed by: Dayne Burr MD 01/10/25 22:19 PM Pending Results Patient Have Any Pending Studies at Discharge: No Discharge Instructions Given to Patient (Per Discharging Provider) Jose Wong were hospitalized after having worsening shortness of breath at home. This was found to be from a heart failure exacerbation - I suspect that this was due to dietary indiscretion at home. We will be changing your lasix to bumex 2mg twice a day to help with your heart failure. It is very important that you limit your salt to 2g a day and fluid in take to 2L per day. You will need to follow up with your rock mason apprentice song. Recommend elevating your legs and continuing compression stockings or linus wraps to help. You completed antibiotics for your dental infection. Please replace your insulin pump and dexcom when you get home. Activity: You can do normal everyday activities as your body allows. Take rest breaks if you feel tired. Do not overexert. Stop activity if you have pain, shortness of breath or feel dizzy. Follow-up appointments: Make an appointment with your primary care physician within one week of discharge. A copy of this summary will be sent to them. Every time you see your primary care physician, or any other doctor, bring your medication list, and a list of questions. CONTACT YOUR PRIMARY CARE PROVIDER if you experience any of the following: Shortness of breath or difficulty breathing Fevers or chills Feeling tired with normal activity or experiencing dizziness or fainting Difficulty following your treatment plan, or difficulty taking medications CALL 911 OR GO TO THE EMERGENCY DEPARTMENT if you experience any of the following: Severe abdominal pain or nausea/vomiting Severe chest pain, or chest pain that radiates (moves) to your jaw or arm Sudden, severe shortness of breath or difficulty breathing Thank you for allowing us to participate in your care. Supervising Physician Co-Signing Physician Notes PA Supervision Note: I did not personally see or examine the patient today, but I verified all caraballo points of LELAND Ann's assessment and plan with the following exceptions/additions: None Total Time Total Time Spent Total Time Spent (In Minutes): Time spent day of discharge 40 minutes including direct patient care, medication reconciliation, documentation, review of labs and images, and coordination of care. Coding Level of Care Code 44058 INP/OBS DISCH >30 MIN Diagnoses Acute on chronic congestive heart failure, unspecified heart failure type I50.9 Heart failure type: unspecified Hypomagnesemia E83.42 Acute on chronic respiratory failure with hypoxia J96.21 Uncontrolled type 2 diabetes mellitus with hyperglycemia E11.65 Glycemic state: with hyperglycemia Hemoptysis R04.2
== END 2025-01-14 14:45 | disposition home or self-care (01) ==
LOC: ED 20:29 → INTOOBSV 23:13 → 4W 23:13 → SUATTDRO 23:13 → 4W 01-11 01:00